=== PATIENT | female | born 1970 | race Caucasian/White ===

== ENCOUNTER 2023-01-28 17:47 | Outpatient (RCR) | payer MEDICARE, MEDICAID, SELFPAY | END 2023-02-26 23:59 | disposition home or self-care (01) | LOC: MM 17:47 | PROVIDERS: PCP Internal Medicine; Visit Provider Internal Medicine | DX: Z51.81 Encounter for therapeutic drug level monitoring (principal); Z79.01 Long term (current) use of anticoagulants; I48.0 Paroxysmal atrial fibrillation ==

== ENCOUNTER 2023-03-03 10:54 | Outpatient (RCR) | payer MEDICARE, MEDICAID, SELFPAY | END 2023-03-29 16:45 | disposition home or self-care (01) | LOC: MM 10:54 | PROVIDERS: PCP Internal Medicine; Visit Provider Internal Medicine | DX: Z51.81 Encounter for therapeutic drug level monitoring (principal); Z79.01 Long term (current) use of anticoagulants; I48.0 Paroxysmal atrial fibrillation ==

== ENCOUNTER 2023-03-18 03:20 | Emergency (ER) | payer MEDICARE, MEDICAID, SELFPAY ==
[2023-03-18 03:21] VITALS: BP 110/75; PULSE 80; RESP 18; TEMP 36.8; O2SAT 100; BMI 27.0
--- NOTE | 2023-03-18 03:40 | XR_ITS ---
The [address] [address] Patient Name: HORACIO LOMBARDI MRN: [id number] date: 1970 Sex: F Assigned Patient Location: ER Current Patient Location: ED.MAIN Accession/Order Number: [id number] Exam Date: 03/18/2023 03:40 Report Date: 03/18/2023 04:28 At the request of: HAROON ARCINIEGA Procedure: XR humerus RT EXAM: XR humerus RT HISTORY: fall, hx humeral fx COMPARISON: Right humerus radiograph dated 01/27/2023. TECHNIQUE: 2 views of the right humerus were obtained. FINDINGS: There is a healing proximal right humerus fracture. No additional fracture or dislocation is seen. The right humeral head is well-seated on the glenoid. The acromioclavicular and coracoclavicular distance are preserved. The imaged right lung is clear. XR/XR humerus RT IMPRESSION: 1. Healing proximal right humerus fracture with no additional fracture or dislocation seen. If pain persists, repeat radiographs are recommended in 7-10 days. Electronically authenticated by: Pascual DIAZ Date: 03/18/2023 04:28
--- NOTE | 2023-03-18 03:41 | ED_ITS ---
HPI - Extremity Injury (Upper) General Chief Complaint: Extremity Injury, Upper Stated Complaint: R UPPER PAIN Time Seen by Provider: 03/18/23 03:39 History of Present Illness HPI narrative: This 52 year old female who broke her right humerus 8 weeks ago when she fell And is seeing Dr. Obrien who has told her that he may have to put a plate in her humerus is brought to the emergency department by EMS after she fell out of a chair she was sleeping and this morning. She states she was sitting upright in the chair and in a deep sleep and fell forward. She fell out of the chair and struck her right humerus on a coffee table. She then fell to the floor after hitting the coffee table and struck her head. She denies any loss of consciousness. She denies any head injury or neck pain. Related Data Home Medications Medication Instructions Recorded Confirmed amiodarone 400 mg tablet mg 03/18/23 atorvastatin 80 mg tablet mg 03/18/23 baclofen 5 mg tablet mg 03/18/23 ymmybxmxyx-gzfegswwxrvsc-xxzugayt cap 03/18/23 50 mg-300 mg-40 mg capsule clonazepam 0.5 mg tablet mg 03/18/23 fluoxetine 20 mg capsule mg 03/18/23 isosorbide mononitrate 30 mg mg PO 03/18/23 tablet,extended release 24 hr levothyroxine 75 mcg tablet mcg 03/18/23 metoprolol succinate 100 mg mg PO 03/18/23 tablet,extended release 24 hr nitroglycerin 0.4 mg sublingual mg 03/18/23 tablet omeprazole 40 mg capsule,delayed mg 03/18/23 release potassium chloride 20 mEq meq PO 03/18/23 tablet,extended release(part/cryst) ropinirole 2 mg tablet mg 03/18/23 torsemide 20 mg tablet mg 03/18/23 trazodone 50 mg tablet mg 03/18/23 warfarin 5 mg tablet 5 mg PO DAILY 03/18/23 03/18/23 Allergies Allergy/AdvReac Type Severity Reaction Status Date / Time erythromycin base Allergy Unknown Verified 03/18/23 03:24 Review of Systems ROS Status of ROS 10 or more systems reviewed and unremarkable except as noted in history and below PFSH PFSH Social History Smoking status: Never smoker Exam Narrative Exam Narrative: Nurses note and vital signs reviewed and patient is not hypoxic. General: The patient appears well and in no apparent distress. Patient is resting comfortably on cart. Skin: Warm, dry, no pallor noted. There is no rash noted. Head: Normocephalic, several 'lumps' are noted on the patients scalp but no erythema, hematoma or laceration noted Neck: No midline bony vertebral tenderness or step off Eye: Normal conjunctiva, no drainage, EOMI. PERRL Ears, Nose, Mouth, and Throat: oral mucosa is moist. Cardiovascular: Regular Rate and Rhythm Respiratory: Patient is in no distress, no accessory muscle use, lungs are clear to auscultation, no wheezing, rales or rhonchi Back: non-tender, no CVA tenderness bilaterally to percussion. GI: Normal bowel sounds, no tenderness to palpation, no masses appreciated. No rebound, guarding, or rigidity noted. Musculoskeletal: There is tenderness without notable bony deformity to the right humerus and anterior chest wall. 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 strength is intact, Neurological: A&O x4, normal speech Psychiatric: Cooperative Constitutional Vital Signs, click to edit/add: Last Vital Signs Temp 98.2 F 03/18/23 03:21 Pulse 80 03/18/23 03:21 Resp 18 03/18/23 03:21 BP 110/75 03/18/23 03:21 Pulse Ox 100 03/18/23 03:21 O2 Del Method Room Air 03/18/23 03:21 Course Vital Signs Vital signs: Vital Signs Temperature 98.2 F 03/18/23 03:21 Pulse Rate 80 03/18/23 03:21 Respiratory Rate 18 03/18/23 03:21 Blood Pressure 110/75 03/18/23 03:21 Pulse Oximetry 100 03/18/23 03:21 Oxygen Delivery Method Room Air 03/18/23 03:21 Temperature 98.2 F 03/18/23 03:21 Pulse Rate 80 03/18/23 03:21 Respiratory Rate 18 03/18/23 03:21 Blood Pressure 110/75 03/18/23 03:21 Pulse Oximetry 100 03/18/23 03:21 Oxygen Delivery Method Room Air 03/18/23 03:21 MDM - Extremity Injury (Upper) MDM Narrative Medical decision making narrative: This 52-year-old female who has a humeral head fracture on January 27 after a mechanical fall is brought emergency department by EMS after she fell out of a chair she was sleeping and at home. She states she fell forward and struck her right arm on a coffee table and then fell to the floor striking her head on the floor. She does have a history of cardiac disease and is on Coumadin. Her GCS is 15. She complains of a global headache but also has migraines. She has several lumps on her scalp that do not appear to be related to her fall however I ordered a CT scan due to the fact that she is on Coumadin. X-ray of the right humerus shows a healing humeral head fracture with no dislocation or worsening or additional fracture. She was medicated emergency department with 4 mg of IM morphine and given 4 mg of oral Zofran to prevent nausea and vomiting from the morphine. CT scan of the brain was read by radiology and shows no acute findings. Discharge Plan Discharge Chief Complaint: Extremity Injury, Upper Clinical Impression: Fall from chair, Closed head injury, Fracture of head of humerus with routine healing Time of Disposition Decision: 05:17 Prescriptions / Home Meds: No Action atorvastatin 80 mg tablet torsemide 20 mg tablet trazodone 50 mg tablet isosorbide mononitrate 30 mg tablet extended release 24 hr PO clonazepam 0.5 mg tablet metoprolol succinate 100 mg tablet extended release 24 hr PO omeprazole 40 mg capsule,delayed release(DR/EC) levothyroxine 75 mcg tablet potassium chloride 20 mEq tablet,ER particles/crystals PO amiodarone 400 mg tablet ropinirole 2 mg tablet warfarin 5 mg tablet 5 mg PO DAILY Patient Comments: 1.5 M,W,F, 1 tab other days nitroglycerin 0.4 mg tablet, sublingual fluoxetine 20 mg capsule vsnyxvqpxz-jgtdcswslzecu-xwiu 50-300-40 mg capsule baclofen 5 mg tablet Instructions: Arm Fracture in Adults (DC), Head Injury (ED), Fall Prevention (ED) Stand Alone Forms: Portal Instructions Referrals: Shaikh Rojas MD [Primary Care Provider] - 1 week
[2023-03-18] MEDS: MORPHINE SULFATE 4 MG/ML VIAL IM (04:02)
[2023-03-18] MEDS: ONDANSETRON 4 MG RAPDIS TABLET SL (04:02)
--- NOTE | 2023-03-18 04:05 | CT_ITS ---
The [place] [id number] Patient Name: HORACIO LOMBARDI MRN: [id number] date: 1970 Sex: F Assigned Patient Location: ED.MAIN Current Patient Location: Accession/Order Number: [id number] Exam Date: 03/18/2023 04:26 Report Date: 03/18/2023 04:59 At the request of: HAROON MARKER Procedure: CT head/brain wo con INDICATION: 52 years old; Female. Fall. Closed head trauma. Headache. TECHNIQUE: CT Head (ax/cor/sag reformats). Ionizing radiation dose reduced via iterative reconstruction/FBP blend and body size kV/mA adjustment. Comparison: None FINDINGS: POSTOPERATIVE CHANGES: None. BRAIN PARENCHYMA: No focal lesions. No mass effect. No midline shift or herniation. No intraparenchymal or extra-axial hemorrhage. Subtle patchy low-density in the white matter without mass effect consistent with small vessel ischemic change. VENTRICLES/EXTRA-AXIAL SPACES: Normal for patient's age. SINUSES/MASTOIDS: The visualized sinuses are clear. Mastoid air cells are clear. MSK: No displaced or depressed calvarial fracture is noted. Extracranial soft tissue swelling in the vertex projecting to the left. OTHER: No hyperdense intraluminal thrombus. CT/CT head/brain wo con IMPRESSION: 1. No acute intracranial abnormality. No hemorrhage or mass effect. 2. Small vessel ischemic changes. 3. Extracranial soft tissue swelling. No subjacent displaced fracture is seen. Electronically authenticated by: KELSEY LOMAS Date: 03/18/2023 04:59
== END 2023-03-18 06:30 | disposition home or self-care (01) ==
PROVIDERS: Emergency Provider Emergency Medicine; PCP Internal Medicine
DX: S09.8XXA Other specified injuries of head, initial encounter (principal); W07.XXXA Fall from chair, initial encounter; S42.291D Other displaced fracture of upper end of right humerus, subsequent encounter for fracture with routine healing; S42.301D Unspecified fracture of shaft of humerus, right arm, subsequent encounter for fracture with routine healing; W19.XXXD Unspecified fall, subsequent encounter; Z79.899 Other long term (current) drug therapy; Z79.01 Long term (current) use of anticoagulants
CPT/HCPCS: 70450; 73060; 96372; 99284

== ENCOUNTER 2023-03-30 08:58 | Outpatient (RCR) | payer MEDICARE, MEDICAID, SELFPAY | END 2023-04-29 15:47 | disposition home or self-care (01) | LOC: MM 08:58 | PROVIDERS: Visit Provider Internal Medicine | DX: Z51.81 Encounter for therapeutic drug level monitoring (principal); Z79.01 Long term (current) use of anticoagulants; I48.0 Paroxysmal atrial fibrillation ==

== ENCOUNTER 2023-04-30 08:02 | Outpatient (RCR) | payer MEDICARE, MEDICAID, SELFPAY | END 2023-05-28 16:32 | disposition home or self-care (01) | LOC: MM 08:02 | PROVIDERS: PCP Internal Medicine; Visit Provider Internal Medicine | DX: Z51.81 Encounter for therapeutic drug level monitoring (principal); Z79.01 Long term (current) use of anticoagulants; I48.0 Paroxysmal atrial fibrillation ==

== ENCOUNTER 2023-05-02 09:15 | Emergency (ER) | payer MEDICARE, MEDICAID, SELFPAY ==
[2023-05-02 09:19] VITALS: BP 151/92; PULSE 80; RESP 18; TEMP 36.8; O2SAT 100; BMI 30.1
[2023-05-02 09:22] VITALS: PULSE 80
--- NOTE | 2023-05-02 09:42 | ECG_ITS ---
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
--- NOTE | 2023-05-02 09:49 | ED.GENADUL1 ---
HPI - General Adult General Chief complaint: Extremity Problem, Nontraumatic Stated complaint: L SHOULDER/ARM PAIN Time Seen by Provider: 05/02/23 09:18 Source: patient Mode of arrival: ambulance Limitations: no limitations History of Present Illness HPI narrative: patient woke with pain along the left neck and left posterior shoulder this morning. She is very stiff. No recent injury or illness. She did not take anything for the pain. She called 911 to bring her to the ED for evaluation. No fever or chills. No vomiting or diarrhea. Related Data Home Medications Medication Instructions Recorded Confirmed amiodarone 400 mg tablet 400 mg PO DAILY 03/18/23 05/02/23 atorvastatin 80 mg tablet 80 mg PO DAILY 03/18/23 05/02/23 baclofen 5 mg tablet 5 mg PO TID PRN muscle spasm 03/18/23 05/02/23 clonazepam 0.5 mg tablet 0.5 mg PO TID PRN anxiety 03/18/23 05/02/23 fluoxetine 20 mg capsule 20 mg PO DAILY 03/18/23 05/02/23 isosorbide mononitrate 30 mg 30 mg PO DAILY 03/18/23 05/02/23 tablet,extended release 24 hr levothyroxine 75 mcg tablet 75 mcg PO DAILY 03/18/23 05/02/23 nitroglycerin 0.4 mg sublingual 0.4 mg sublingual Q5M PRN chest 03/18/23 05/02/23 tablet pain omeprazole 40 mg capsule,delayed 40 mg PO DAILY 03/18/23 05/02/23 release potassium chloride 20 mEq 20 meq PO DAILY 03/18/23 05/02/23 tablet,extended release(part/cryst) ropinirole 2 mg tablet 2 mg PO TID 03/18/23 05/02/23 torsemide 20 mg tablet 40 mg PO DAILY 03/18/23 05/02/23 trazodone 50 mg tablet 50 mg PO QPM 03/18/23 05/02/23 warfarin 5 mg tablet 5 mg PO DAILY 03/18/23 05/02/23 Previous Rx's Medication Instructions Recorded methocarbamol 750 mg tablet 750 mg PO Q6H PRN pain #30 tabs 05/02/23 tramadol 50 mg tablet 50 mg PO Q6H PRN pain #14 tabs 05/02/23 Allergies Allergy/AdvReac Type Severity Reaction Status Date / Time erythromycin base Allergy Unknown Verified 03/18/23 03:24 [facility] Social History Smoking status: Current every day smoker Exam Narrative Exam Narrative: Nurses notes and vital signs reviewed and patient is not hypoxic. afebrile General: Well-appearing and in no apparent distress. Skin: Warm, dry, no pallor noted. No rash. Head: Normocephalic, atraumatic. Neck: Supple, no cervical lymphadenopathy. Soft tissue tenderness along the posterolateral left neck into the superior aspect of the left trapezius. Increased pain with side bending and rotation of the neck to the left. It decreases with side bending and rotation to the right. Eye: Pupils are equal, round and EOMI. No scleral icterus. Cardiovascular: Regular Rate and Rhythm without murmur, gallop or rub. Respiratory: No accessory muscle use or respiratory distress. Lungs are clear to auscultation, no wheezing, rales or rhonchi Back: No midline thoracic or lumbar vertebral tenderness. superior left trapezius soft tissue tenderness is noted. Musculoskeletal: normal ROM, no calf or popliteal tenderness, no lower extremity edema/swelling Neurological: A&O x4. No cranial nerve dysfunction observed. No truncal ataxia. Moves all extremities. Sensation intact. Psychiatric: Cooperative and interactive. Normal mood and affect. Constitutional Vital Signs, click to edit/add: Last Vital Signs Temp 98.3 F 05/02/23 09:19 Pulse 80 05/02/23 09:22 Resp 18 05/02/23 09:19 BP 151/92 H 05/02/23 09:19 Pulse Ox 100 05/02/23 09:19 O2 Del Method Room Air 05/02/23 09:19 Course Vital Signs Vital signs: Vital Signs Temperature 98.3 F 05/02/23 09:19 Pulse Rate 80 05/02/23 09:19 Respiratory Rate 18 05/02/23 09:19 Blood Pressure 151/92 H 05/02/23 09:19 Pulse Oximetry 100 05/02/23 09:19 Oxygen Delivery Method Room Air 05/02/23 09:19 Temperature 98.3 F 05/02/23 09:19 Pulse Rate 80 05/02/23 09:22 Respiratory Rate 18 05/02/23 09:19 Blood Pressure 151/92 H 05/02/23 09:19 Pulse Oximetry 100 05/02/23 09:19 Oxygen Delivery Method Room Air 05/02/23 09:19 Medical Decision Making MDM Narrative Medical decision making narrative: the patient was given IM Solu-Medrol and IM Toradol in the emergency department along with oral Percocet tablet. She has acute torticollis and will be discharged home with prescriptions for Ultram and Robaxin. She takes Coumadin daily and therefore cannot get long-term NSAID treatment. Discharge Plan Discharge Chief Complaint: Extremity Problem, Nontraumatic Clinical Impression: Acute torticollis Patient Disposition: Home, Self-Care Time of Disposition Decision: 09:53 Prescriptions / Home Meds: New methocarbamol 750 mg tablet 750 mg PO Q6H PRN (Reason: pain) Qty: 30 0RF tramadol 50 mg tablet 50 mg PO Q6H PRN (Reason: pain) Qty: 14 0RF No Action atorvastatin 80 mg tablet 80 mg PO DAILY torsemide 20 mg tablet 40 mg PO DAILY trazodone 50 mg tablet 50 mg PO QPM isosorbide mononitrate 30 mg tablet extended release 24 hr 30 mg PO DAILY clonazepam 0.5 mg tablet 0.5 mg PO TID PRN (Reason: anxiety) omeprazole 40 mg capsule,delayed release(DR/EC) 40 mg PO DAILY levothyroxine 75 mcg tablet 75 mcg PO DAILY potassium chloride 20 mEq tablet,ER particles/crystals 20 meq PO DAILY amiodarone 400 mg tablet 400 mg PO DAILY ropinirole 2 mg tablet 2 mg PO TID warfarin 5 mg tablet 5 mg PO DAILY Patient Comments: 1.5 M,W,F, 1 tab other days nitroglycerin 0.4 mg tablet, sublingual 0.4 mg sublingual Q5M PRN (Reason: chest pain) fluoxetine 20 mg capsule 20 mg PO DAILY baclofen 5 mg tablet 5 mg PO TID PRN (Reason: muscle spasm) Instructions: Spasmodic Torticollis (ED) Stand Alone Forms: Portal Instructions Referrals: Shaikh Rojas MD [Primary Care Provider] - 1 week
[2023-05-02] MEDS: KETOROLAC TROMETHAMINE 60 MG/2 ML VIAL IM (09:56)
[2023-05-02] MEDS: METHYLPREDNISOLONE SOD SUCC PF 125 MG/2 ML VIAL IM (09:57)
== END 2023-05-02 10:30 | disposition home or self-care (01) ==
PROVIDERS: Emergency Provider Emergency Medicine; PCP Internal Medicine
DX: M43.6 Torticollis (principal); Z79.899 Other long term (current) drug therapy; Z79.01 Long term (current) use of anticoagulants; F17.210 Nicotine dependence, cigarettes, uncomplicated
CPT/HCPCS: 93005; 96372; 99284; J2930

== ENCOUNTER 2023-05-06 22:16 | Inpatient (IN) | payer MEDICARE, MEDICAID, SELFPAY ==
[2023-05-06] VITALS (12 sets, daily range): BP systolic 124–131; BP diastolic 50–64; PULSE 80–91; RESP 18–35; TEMP 37.3; O2SAT 89–93; BMI 29.3
--- NOTE | 2023-05-06 22:26 | ECG_ITS ---
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
--- NOTE | 2023-05-06 22:26 | XR_ITS ---
The [address] [address] Patient Name: HORACIO LOMBARDI MRN: [id number] date: 1970 Sex: F Assigned Patient Location: ED.MAIN Current Patient Location: ER Accession/Order Number: [id number] Exam Date: 05/06/2023 22:45 Report Date: 05/06/2023 23:16 At the request of: OMER JOSEPH Procedure: XR chest 1V EXAM: XR chest 1V HISTORY: shortness of breath COMPARISON: None. TECHNIQUE: AP FINDINGS: Left anterior chest wall pacemaker visualized with the distal tips noted projecting over the region of the right atrium and the right ventricle. Mitral valve replacement visualized. There is mild to moderate cardiomegaly. There are prominent interstitial markings visualized bilaterally, right greater than left. Questionable minimal right-sided pleural effusion. No evidence for focal consolidation. No evidence for pneumothorax. The diaphragmatic and osseous structures are intact without evidence for an acute osseous abnormality. XR/XR chest 1V IMPRESSION: Pcke-pv-[id number] cardiomegaly with evidence of CHF/fluid overload with minimal right-sided pleural effusion. Electronically authenticated by: GILA RICHARDSON Date: 05/06/2023 23:16
--- NOTE | 2023-05-06 22:28 | ED.GENADUL1 ---
HPI - General Adult General Chief complaint: Shortness of Breath/Dyspnea Stated complaint: SOB Time Seen by Provider: 05/06/23 22:25 Source: patient Mode of arrival: ambulance Limitations: no limitations History of Present Illness HPI narrative: Patient with CAD, CHF and implanted PM/Defib was brought in by EMS for evaluation after she developed shortness of breath 3 days ago that worsened tonight. No chest pain or tightness. She admits to headache and some generalized achiness. No known exposure to Covid or other illness. She told me that she did not get her Metoprolol with her delivery of other meds 3 weeks ago and has been off of it until today, when she was able to get metoprolol and restart it. She sees Dr Hoskins (Cardiology) in [place]. Related Data Home Medications Medication Instructions Recorded Confirmed amiodarone 400 mg tablet 400 mg PO DAILY 03/18/23 05/02/23 atorvastatin 80 mg tablet 80 mg PO DAILY 03/18/23 05/02/23 baclofen 5 mg tablet 5 mg PO TID PRN muscle spasm 03/18/23 05/02/23 clonazepam 0.5 mg tablet 0.5 mg PO TID PRN anxiety 03/18/23 05/02/23 fluoxetine 20 mg capsule 20 mg PO DAILY 03/18/23 05/02/23 isosorbide mononitrate 30 mg 30 mg PO DAILY 03/18/23 05/02/23 tablet,extended release 24 hr levothyroxine 75 mcg tablet 75 mcg PO DAILY 03/18/23 05/02/23 nitroglycerin 0.4 mg sublingual 0.4 mg sublingual Q5M PRN chest 03/18/23 05/02/23 tablet pain omeprazole 40 mg capsule,delayed 40 mg PO DAILY 03/18/23 05/02/23 release potassium chloride 20 mEq 20 meq PO DAILY 03/18/23 05/02/23 tablet,extended release(part/cryst) ropinirole 2 mg tablet 2 mg PO TID 03/18/23 05/02/23 torsemide 20 mg tablet 40 mg PO DAILY 03/18/23 05/02/23 trazodone 50 mg tablet 50 mg PO QPM 03/18/23 05/02/23 warfarin 5 mg tablet 5 mg PO DAILY 03/18/23 05/02/23 Previous Rx's Medication Instructions Recorded methocarbamol 750 mg tablet 750 mg PO Q6H PRN pain #30 tabs 05/02/23 tramadol 50 mg tablet 50 mg PO Q6H PRN pain #14 tabs 05/02/23 Allergies Allergy/AdvReac Type Severity Reaction Status Date / Time erythromycin base Allergy Unknown Verified 05/06/23 22:23 [facility] Social History Smoking status: Former smoker Exam Narrative Exam Narrative: Nurses notes and vital signs reviewed and patient IS hypoxic -only 89% on RA. afebrile General: Well-appearing and in no apparent distress. Skin: Warm, dry, no pallor noted. Head: Normocephalic, atraumatic. Eye: Pupils are equal, round and EOMI. No scleral icterus. Ears, Nose, Mouth, and Throat: Oral mucosa is moist, no oral lesions noted Cardiovascular: Regular Rate and Rhythm without murmur, gallop or rub. Respiratory: No accessory muscle use or respiratory distress. Lungs are clear to auscultation, no wheezing, rales or rhonchi Musculoskeletal: normal ROM, no calf or popliteal tenderness, no lower extremity edema/swelling GI: Abdomen is soft, non-distended. Normal bowel sounds. No tenderness to palpation. No rebound, guarding, or rigidity noted. Neurological: A&O x4. No cranial nerve dysfunction observed. No truncal ataxia. Moves all extremities. Sensation intact. Psychiatric: Cooperative and interactive. Normal mood and affect. Constitutional Vital Signs, click to edit/add: Last Vital Signs Temp 99.1 F 05/06/23 22:18 Pulse 80 05/07/23 01:01 Resp 25 H 05/07/23 01:01 BP 119/55 05/07/23 01:01 Pulse Ox 93 L 05/07/23 01:01 O2 Del Method Room Air 05/06/23 22:18 Course Vital Signs Vital signs: Vital Signs Temperature 99.1 F 05/06/23 22:18 Pulse Rate 80 05/06/23 22:18 Respiratory Rate 18 05/06/23 22:18 Blood Pressure 126/63 05/06/23 22:18 Pulse Oximetry 89 L 05/06/23 22:18 Oxygen Delivery Method Room Air 05/06/23 22:18 Temperature 99.1 F 05/06/23 22:18 Pulse Rate 80 05/07/23 01:01 Respiratory Rate 25 H 05/07/23 01:01 Blood Pressure 119/55 05/07/23 01:01 Pulse Oximetry 93 L 05/07/23 01:01 Oxygen Delivery Method Room Air 05/06/23 22:18 Medical Decision Making MDM Narrative Medical decision making narrative: Patient was placed on cathode washer and EKG obtained. Blood drawn and sent for evaluation. chest x-ray obtained. Patient's K+ was low at 3.0 so she was given oral Potassium 40meq. Normal Troponin but elevated BNP > 4k - CXR revealed CHF/fluid overload with right sided effusion, consistent with elevated BNP. WBC elevated at 20k - lactate and blood cultures obtained. Elevated DDimer so CTA chest obtained. Lactate elevated - patient ordered to receive IV Rocephin. IV levaquin had conflicts with her amiodarone (QT prolongation) and so was avoided. Patient told us that she was started on thyroid med a month ago and has not had levels checked - elevated T4 with normal T3. CTA chest shows diffuse ground glass appearance - could be pulm edema,diffuse infiltrate/pneumonia or combo. Covid is negative. Patient will be need to be admitted for hypoxia, CHF exacerbation and multifocal pneumonia with sepsis. Call placed to the deputy probation officer telehospitalist to discuss admission. Dr Nascimento agreed to admit the patient on behalf of Dr He after we discussed the case. Patient informed of results, diagnoses and was agreeable to admission - medsurg, telemetry, inpatient, Dr He's service. Lab Data Lab results reviewed: Yes I reviewed the patient's lab results Labs: Lab Results 05/06/23 05/06/23 05/06/23 Range/Units 22:38 22:40 22:50 WBC 20.9 H (4.0-11.0) 10^3/uL RBC 4.38 (4.20-5.40) 10^6/uL Hgb 9.2 L (12.0-16.0) g/dL Hct 31.3 L (36.0-48.0) % MCV 71.5 L (81.0-99.0) fL MCH 21.0 L (26.7-34.0) pg MCHC 29.4 L (29.9-35.2) g/dL RDW 19.1 H (11.0-15.0) % Plt Count 252 (150-450) 10^3/uL MPV 11.5 (9.5-13.5) fL Neut % (Auto) 82.5 H (43.0-75.0) % Lymph % (Auto) 5.4 L (20.5-60.0) % Sibley % (Auto) 10.7 (1.7-12.0) % Eos % (Auto) 0.1 L (0.9-7.0) % Baso % (Auto) 0.5 (0.2-2.0) % Neut # (Auto) 17.3 H (1.4-6.5) 10^3/uL Lymph # (Auto) 1.1 L (1.2-3.8) 10^3/uL Sibley # (Auto) 2.2 H (0.3-0.8) 10^3/uL Eos # (Auto) 0.0 (0.0-0.7) 10^3/uL Baso # (Auto) 0.1 (0.0-0.1) 10^3/uL Abs Immat Gran (auto) 0.17 H (0.00-0.03) 10^3/uL Imm/Tot Granulo (auto) 0.8 H (0.0-0.5) % D-Dimer 1.32 H* (<=0.59) mg/L FEU Sodium 138 (136-145) mmol/L Potassium 3.0 L (3.5-5.1) mmol/L Chloride 101 (98-107) mmol/L Carbon Dioxide 26.5 (21.0-32.0) mmol/L Anion Gap 13.5 BUN 14.0 (7.0-18.0) mg/dL Creatinine 1.14 H (0.55-1.02) mg/dL Est GFR ( Amer) >60 (>=60) Est GFR (Non-Af Amer) 50 L (>=60) BUN/Creatinine Ratio 12.3 Glucose 127 H (74-106) mg/dL Lactate 2.5 H* (0.4-2.0) mmol/L Calcium 8.4 L (8.5-10.1) mg/dL Troponin I High Sens 25.5 (4.0-51.3) pg/mL NT-Pro-B Natriuret Pep 4943.0 H* (<=900.0) pg/mL Free T4 2.05 H (0.76-1.46) ng/dL Free T3 1.21 L (2.18-3.98) pg/mL SARS-CoV-2 (PCR) Negative (NEGATIVE) Imaging Data Chest x-ray: Radiologist's impression: Patient Name: HORACIO LOMBARDI MRN: [facility]:[id number] date: 1970 Sex: F Assigned Patient Location: ED.MAIN Current Patient Location: ER Accession/Order Number: [id number] Exam Date: 05/06/2023 22:45 Report Date: 05/06/2023 23:16 At the request of: OMER JOSEPH Procedure: XR chest 1V EXAM: XR chest 1V HISTORY: shortness of breath COMPARISON: None. TECHNIQUE: AP FINDINGS: Left anterior chest wall pacemaker visualized with the distal tips noted projecting over the region of the right atrium and the right ventricle. Mitral valve replacement visualized. There is mild to moderate cardiomegaly. There are prominent interstitial markings visualized bilaterally, right greater than left. Questionable minimal right-sided pleural effusion. No evidence for focal consolidation. No evidence for pneumothorax. The diaphragmatic and osseous structures are intact without evidence for an acute osseous abnormality. IMPRESSION: Ijup-to-[id number] cardiomegaly with evidence of CHF/fluid overload with minimal right-sided pleural effusion. Electronically authenticated by: GILA RICHARDSON Date: 05/06/2023 23:16 cta chest: Radiologist's impression: Patient Name: HORACIO LOMBARDI MRN: [facility]:[id number] date: 1970 Sex: F Assigned Patient Location: ER Current Patient Location: ER Accession/Order Number: [id number] Exam Date: 05/06/2023 23:59 Report Date: 05/07/2023 01:06 At the request of: OMER JOSEPH Procedure: CT angio chest EXAMINATION:CT angio chest INDICATION:shortness of breath COMPARISON:None TECHNIQUE:Thin section transaxial slices were acquired through the chest with intravenous contrast per PE protocol. Coronal and sagittal reconstructed images were reviewed. FINDINGS: PULMONARY ARTERIES: There is excellent opacification of the pulmonary vasculature. No suspicious pulmonary arterial filling defects are identified to suggest pulmonary embolus. LUNGS: There are chronic emphysematous changes in the lungs. The major predominantly within the upper lobes. There is severe diffuse groundglass airspace disease identified throughout all lobes of each lung most severe in the entire right lung and left lower lobe. PLEURAL CAVITY: There is a small right pleural effusion and trace left pleural effusion. MEDIASTINUM: Trachea and central airways are patent. HEART: There is cardiac enlargement. A mitral valve is in place.T here are coronary artery calcifications.There is no evidence of right heart strain. VASCULAR:There is no aneurysm or dissection of the thoracic aorta. LYMPH NODES:There is extensive mediastinal lymphadenopathy especially in the AP window and subcarinal space. The largest lymph node is in the subcarinal space measuring 2.3 cm in transverse dimension. These may be reactive given findings elsewhere within the lungs. CHEST WALL/AXILLA: The patient is status post median sternotomy. A left-sided pacemaker is in place. BONES: There is a healing fracture of the proximal right humerus. There are age indeterminate compression fractures of the T12 vertebral body and T7 vertebral body. VISUALIZED UPPER ABDOMEN: The patient is status post cholecystectomy. IMPRESSION: 1. No evidence of pulmonary embolus. 2. Extensive diffuse groundglass airspace disease in all lobes of each lung. Differential considerations include multifocal infection, alveolar edema, pulmonary hemorrhage or combination of these. 3. Small right pleural effusion and trace left pleural effusion. Electronically authenticated by: MARLON KHANNA Date: 05/07/2023 01:06 ECG Data Interpretation: EKG interpretation: Emergency Department physician interpretation. Pacer spikes present. Normal sinus rhythm at 79bpm. 1st degree AVB. LAD. no ST segment elevation or depression. Discharge Plan Discharge Chief Complaint: Shortness of Breath/Dyspnea Clinical Impression: Sepsis, CHF (congestive heart failure), Multifocal pneumonia Patient Disposition: Admitted As Inpatient Time of Disposition Decision: 01:29 Additional Instructions: medsurg, telemetry, Dr He
[2023-05-06 22:47] LABS: Basophils Absolute Auto 0.1 10^3/uL (0.0-0.1); Basophils Percent Auto 0.5 % (0.2-2.0); Eosinophils Percent Auto 0.1 % (0.9-7.0); Hematocrit 31.3 % (36.0-48.0); Hemoglobin 9.2 g/dL (12.0-16.0); Immature Granulocytes Abs Auto 0.17 10^3/uL (0.00-0.03); Immature Granulocytes Pct Auto 0.8 % (0.0-0.5); Lymphocytes Absolute Auto 1.1 10^3/uL (1.2-3.8); Lymphocytes Percent Auto 5.4 % (20.5-60.0); Mean Corpuscular HGB Conc 29.4 g/dL (29.9-35.2); Mean Corpuscular Volume 71.5 fL (81.0-99.0); Mean Platelet Volume 11.5 fL (9.5-13.5); Monocytes Absolute Auto 2.2 10^3/uL (0.3-0.8); Monocytes Percent Auto 10.7 % (1.7-12.0); Neutrophils Absolute Auto 17.3 10^3/uL (1.4-6.5); Neutrophils Percent Auto 82.5 % (43.0-75.0); Platelet Count 252 10^3/uL (150-450); Red Blood Count 4.38 10^6/uL (4.20-5.40); Red Cell Distribution Width 19.1 % (11.0-15.0); White Blood Count 20.9 10^3/uL (4.0-11.0)
[2023-05-06 23:04] LABS: D Dimer 1.32 mg/L FEU (<=0.59)
[2023-05-06 23:08] LABS: Free T4 2.05 ng/dL (0.76-1.46)
--- NOTE | 2023-05-06 23:09 | CT_ITS ---
The [address] [address] Patient Name: HORACIO LOMBARDI MRN: [id number] date: 1970 Sex: F Assigned Patient Location: ER Current Patient Location: Accession/Order Number: [id number] Exam Date: 05/06/2023 23:59 Report Date: 05/07/2023 01:06 At the request of: OMER JOSEPH Procedure: CT angio chest EXAMINATION:CT angio chest INDICATION:shortness of breath COMPARISON:None TECHNIQUE:Thin section transaxial slices were acquired through the chest with intravenous contrast per PE protocol. Coronal and sagittal reconstructed images were reviewed. FINDINGS: PULMONARY ARTERIES: There is excellent opacification of the pulmonary vasculature. No suspicious pulmonary arterial filling defects are identified to suggest pulmonary embolus. LUNGS: There are chronic emphysematous changes in the lungs. The major predominantly within the upper lobes. There is severe diffuse groundglass airspace disease identified throughout all lobes of each lung most severe in the entire right lung and left lower lobe. PLEURAL CAVITY: There is a small right pleural effusion and trace left pleural effusion. MEDIASTINUM: Trachea and central airways are patent. HEART: There is cardiac enlargement. A mitral valve is in place.T here are coronary artery calcifications.There is no evidence of right heart strain. VASCULAR:There is no aneurysm or dissection of the thoracic aorta. LYMPH NODES:There is extensive mediastinal lymphadenopathy especially in the AP window and subcarinal space. The largest lymph node is in the subcarinal space measuring 2.3 cm in transverse dimension. These may be reactive given findings elsewhere within the lungs. CHEST WALL/AXILLA: The patient is status post median sternotomy. A left-sided pacemaker is in place. BONES: There is a healing fracture of the proximal right humerus. There are age indeterminate compression fractures of the T12 vertebral body and T7 vertebral body. VISUALIZED UPPER ABDOMEN: The patient is status post cholecystectomy. CT/CT angio chest IMPRESSION: 1. No evidence of pulmonary embolus. 2. Extensive diffuse groundglass airspace disease in all lobes of each lung. Differential considerations include multifocal infection, alveolar edema, pulmonary hemorrhage or combination of these. 3. Small right pleural effusion and trace left pleural effusion. Electronically authenticated by: MARLON KHANNA Date: 05/07/2023 01:06
[2023-05-06 23:12] LABS: SARS-CoV-2 Ag NEGATIVE (NEGATIVE)
[2023-05-06 23:13] LABS: Anion Gap 13.5; BUN Creatinine Ratio 12.3; Calcium 8.4 mg/dL (8.5-10.1); Carbon Dioxide 26.5 mmol/L (21.0-32.0); Chloride 101 mmol/L (98-107); Estimated GFR (African America >60 (>=60); Estimated GFR (Non-African Ame 50 (>=60); Glucose 127 mg/dL (74-106); Sodium 138 mmol/L (136-145); Troponin I High Sensitivity 25.5 pg/mL (4.0-51.3)
[2023-05-06 23:15] LABS: Free T3 1.21 pg/mL (2.18-3.98)
[2023-05-06] MEDS: POTASSIUM CHLORIDE 10 MEQ ER TABLET 40 MEQ PO (23:42)
[2023-05-07] VITALS (33 sets, daily range): BP systolic 96–139; BP diastolic 55–69; PULSE 80–93; RESP 18–36; TEMP 36.7–38.5; O2SAT 80–97; BMI 28.6
[2023-05-07 00:51] LABS: Lactate/Lactic Acid 2.5 mmol/L (0.4-2.0)
--- NOTE | 2023-05-07 01:43 | P.PN_ITS ---
Progress Note: Subjective Subjective Interval history: presents to ED after 5 days of LE edema but having been without metoprolol for three weeks, the medicine was mailed/arrived on day of presentation for which she restarted her medication then later in the day began having dyspnea/increased work of breathing. no chest pain. IN ED found to have hypoxia to 88% on RA with no hx of o2 needs. has asthma and is a former smoker (quite August of 2021) and used inhaler at onset of dyspnea and this helped dyspnea. patient has been compliant with lasix PO during this time. ED found patient in CHF but performed CT suggestive of pneumonia (Covid -) with WBC elevation. PCP: Carmen Lane is in [place] Dr. [place] HX: DC at 28 requiring MVR that was updated in 2021. Pacemaker implantation SXH: ex smoker Exam Constitutional Vital Signs, click to edit/add: Last Vital Signs Temp 99.1 F 05/06/23 22:18 Pulse 80 05/07/23 01:30 Resp 30 H 05/07/23 01:30 BP 109/65 05/07/23 01:30 Pulse Ox 94 L 05/07/23 01:30 O2 Del Method Room Air 05/06/23 22:18 Common normals: no apparent distress HENMT Common normals: normocephalic Chest Common normals: inspection of chest normal Chest: pacemaker Respiratory Common normals: normal respiratory effort and no retractions Effort & inspection: able to speak in complete sentences Auscultation: rhonchi Cardio Common normals: regular rate GI Inspection: normal to inspection Extremity Common normals: normal to inspection (no LE edema) Neuro Common normals: oriented x3 Progress Note: Objective Labs Labs: Short CBC 05/06/23 Range/Units 22:38 WBC 20.9 H (4.0-11.0) 10^3/uL Hgb 9.2 L (12.0-16.0) g/dL Hct 31.3 L (36.0-48.0) % Plt Count 252 (150-450) 10^3/uL BMP 05/06/23 22:38 Sodium 138 Potassium 3.0 L Chloride 101 Carbon Dioxide 26.5 BUN 14.0 Creatinine 1.14 H Glucose 127 H Calcium 8.4 L ECG Attestation: ?I have reviewed the pertinent ECG results. Progress Note: A&P Assessment and Plan (1) CHF (congestive heart failure): (2) Multifocal pneumonia: Plan 1. Shortness of breath with Hypoxia mulifactoral 2. CHF Exacerbation 3. Pneumonia4. Anxiety: ok to continue home anxiolytic Plan to continue antibiotics and follow C and S from cultures. Repeat am labs noting leukocytosis. Fever control as necessary (febrile and given tylenol when leaving Ed and during camera time repeat temp is afebrile) Noninvasive respiratory therapy for hypoxia. Volume diuresis with electrolyte repletion. Cardiac Diet, Gi prophylaxis and DVT prophylaxis. PAtient may mobilize ad dayna. Telemedicine Attestation Telemedicine Attestation I conducted this encounter from [Home office in [facility]] via secure live, [id number] video conference with the patient, located at [facility] with [RN bedside ELIZABETH. Prior to the interview, the risks and benefits of telemedicine were discussed with the patient and verbal consent was obtained.
--- NOTE | 2023-05-07 01:45 | XR_ITS ---
The [address] [address] Patient Name: HORACIO LOMBARDI MRN: [id number] date: 1970 Sex: F Assigned Patient Location: MS Current Patient Location: MS Accession/Order Number: [id number] Exam Date: 05/07/2023 05:05 Report Date: 05/07/2023 07:44 At the request of: JOSEE ARTHUR Procedure: XR chest 1V EXAM: XR chest 1V HISTORY: chf/hypoxia COMPARISON: Chest x-ray 05/06/2023. CT chest 05/07/2023 TECHNIQUE: AP chest x-ray. FINDINGS: Cardiac size remains enlarged. Left pectoral AICD is redemonstrated. Valvular replacement is noted with prior median sternotomy. Trachea is midline. No mediastinal widening. Interstitial opacities with patchy alveolar densities, grossly unchanged. No pneumothorax. No definite pleural effusion. Osseous structures appear unchanged. XR/XR chest 1V IMPRESSION: 1. Stable cardiomegaly. 2. Bilateral pulmonary opacities could be related to moderate edema or pneumonia, grossly unchanged. Electronically authenticated by: KAREN FAGAN Date: 05/07/2023 07:44
[2023-05-07] MEDS: CEFTRIAXONE 1,000 MG in 0.9 % SODIUM CHLORIDE 50 ML 100 MG IV ×2 (02:03→21:05)
[2023-05-07] MEDS: ACETAMINOPHEN 500 MG TABLET 1000 MG PO (02:03)
[2023-05-07] MEDS: FUROSEMIDE 40 MG/4 ML VIAL IVP ×2 (02:03→13:20)
[2023-05-07 05:14] LABS: Basophils Absolute Auto 0.1 10^3/uL (0.0-0.1); Basophils Percent Auto 0.3 % (0.2-2.0); Eosinophils Percent Auto 0.1 % (0.9-7.0); Hemoglobin 8.5 g/dL (12.0-16.0); Immature Granulocytes Abs Auto 0.11 10^3/uL (0.00-0.03); Immature Granulocytes Pct Auto 0.6 % (0.0-0.5); Lymphocytes Absolute Auto 1.1 10^3/uL (1.2-3.8); Lymphocytes Percent Auto 6.1 % (20.5-60.0); Mean Corpuscular HGB Conc 29.3 g/dL (29.9-35.2); Mean Corpuscular Hemoglobin 20.7 pg (26.7-34.0); Mean Corpuscular Volume 70.6 fL (81.0-99.0); Mean Platelet Volume 11.3 fL (9.5-13.5); Monocytes Absolute Auto 1.8 10^3/uL (0.3-0.8); Monocytes Percent Auto 10.1 % (1.7-12.0); Neutrophils Absolute Auto 14.6 10^3/uL (1.4-6.5); Neutrophils Percent Auto 82.8 % (43.0-75.0); Platelet Count 225 10^3/uL (150-450); Red Blood Count 4.11 10^6/uL (4.20-5.40); Red Cell Distribution Width 19.2 % (11.0-15.0); White Blood Count 17.6 10^3/uL (4.0-11.0)
[2023-05-07 05:23] LABS: INR 1.05; Prothrombin Time 11.1 sec (9.0-11.6)
[2023-05-07 05:45] LABS: Alanine Aminotransferase 21 U/L (14-59); Albumin Globulin Ratio 0.6; Albumin Level 2.4 g/dL (3.4-5.0); Alkaline Phosphatase 211 U/L (46-116); Anion Gap 11.8; Aspartate Amino Transferase 35 U/L (15-37); BUN Creatinine Ratio 12.7; Bilirubin Total 1.7 mg/dL (0.2-1.0); Calcium 8.3 mg/dL (8.5-10.1); Carbon Dioxide 27.5 mmol/L (21.0-32.0); Chloride 105 mmol/L (98-107); Estimated GFR (African America >60 (>=60); Estimated GFR (Non-African Ame 52 (>=60); Glucose 107 mg/dL (74-106); Potassium 3.3 mmol/L (3.5-5.1); Sodium 141 mmol/L (136-145); Total Protein 6.4 g/dL (6.4-8.2)
[2023-05-07] MEDS: OMEPRAZOLE 40 MG CAPSULE.DR PO ×2 (05:48→08:23)
[2023-05-07] MEDS: ROPINIROLE HCL 1 MG TABLET 2 MG PO ×3 (05:48→21:05)
[2023-05-07] MEDS: LEVOTHYROXINE SODIUM 75 MCG TABLET PO (05:48)
[2023-05-07] MEDS: POTASSIUM CHLORIDE 10 MEQ ER TABLET 20 MEQ PO ×2 (05:50→08:22)
--- NOTE | 2023-05-07 06:45 | CA_ITS ---
Patient: HORACIO LOMBARDI Exam Date: 05/07/2023 : 1970 Gender:F Ordering : DR Curt He . Admission #: [id number] Family : SHAIKH Dmitry FARRELL . Order #: [id number] CLICK HERE TO VIEW EXAM ECHOCARDIOGRAM REPORT PROCEDURE: CA ECHO DOPPLER COMPLETE INDICATIONS: Congestive heart failure, mitral valve replacement, KS, hypertension COMPARISON: None. DESCRIPTION: COMPLETE ECHOCARDIOGRAM Real-time transthoracic echocardiography with 2D, M-mode, spectral and color flow Doppler performed. QUALITY: Technical quality was good. LEFT VENTRICLE: Mild dilatation. Mild eccentric left ventricular hypertrophy. The septum is abnormal in motion as seen in post open heart patients. Systolic function is severely reduced. LV EF: Severely reduced left ventricular ejection fraction, (20%). DIASTOLIC: ATRIAL SEPTUM: Visually appears intact. LEFT ATRIUM: Severe dilatation. RIGHT ATRIUM: Severe dilatation. RIGHT VENTRICLE: Mild dilatation. Systolic function appears normal. Pacer wire present. TRICUSPID VALVE: Normal mobility and thickness. No stenosis with moderate to severe regurgitation. Doppler studies reveal severely (>60) elevated right sided pressures. RVSP 85 mmHg MITRAL VALVE: Bio-Prosthetic valve with normal flow. Mean diastolic gradient is 7 mmHg. Trivial mitral regurgitation. AORTIC VALVE: Normal trileaflet appearance. No visible sclerosis. Normal leaflet mobility. No evidence of aortic valve stenosis. No aortic regurgitation. AORTIC ROOT: Normal diameter and appearance. PULMONIC VALVE: Normal thickness and mobility. No stenosis. Trivial regurgitation. PERICARDIUM: No evidence of pericardial effusion. IVC: IVC is dilated (2.5 cm) with no collapse. PLEURA: CONCLUSION: 1. The left ventricle exhibits mild eccentric hypertrophy with severely reduced systolic function. LVEF is 20%. 2. Mildly dilated right ventricle with normal systolic function. 3. Moderate to severe tricuspid regurgitation. 4. Bioprosthetic valve appears to be well-seated in the mitral position with normal function. 5. Severely elevated right-sided pressures. RVSP is 85 mmHg. Adult Echocardiography Procedure Report Left Ventricle LVEDD (3.7 - 5.6 cm): 5.87 cm LVESD (2.2 - 4.0 cm): 5.23 cm LVIVS thickness (0.6 - 1.2 cm): 1.06 cm LVPW thickness (0.5 - 1.0 cm): 1.15 cm LVOT Max Gradient: 4.26 mm[Hg], 3.21 mm[Hg] LVOT Area (cm2): 0.96 m/s Peak Velocity (LVOT): 1.03 m/s, 0.90 m/s Mean Velocity (LVOT): 0.68 m/s Left Atrium LA Volume Index (2D A2C): 80.75 ml/m2 Left Atrium Systolic Dimension: 6.95 cm Mitral Valve Right Ventricle Aorta AO Root Diam: 3.07 cm Aortic Valve Peak Velocity(Antegrade Flow): 1.67 m/s Peak Gradient(Antegrade Flow): 11.21 mm[Hg] Mean Velocity(Antegrade Flow): 1.13 m/s Mean Gradient(Antegrade Flow): 5.91 mm[Hg] Velocity Time Integral: 24.44 cm Tricuspid Valve Peak Velocity (Regurgitant Flow): 4.17 m/s, 3.46 m/s, 3.80 m/s, 3.64 m/s, 3.64 m/s Pulmonic Valve Peak Velocity: 1.05 m/s Peak Gradient: 3.84 mm[Hg], 5.00 mm[Hg] Right Atrium Right Atrium Systolic Pressure: 72.24 ml, 72.24 ml Dictated by: Julio Badillo M.D. on 05/07/2023 at 17:48 Approved by: Julio Badillo M.D. on 05/07/2023 at 17:54
--- NOTE | 2023-05-07 07:55 | CM.NOTE ---
Rounds made with Dr. He, no discharge today.
[2023-05-07] MEDS: ENOXAPARIN SODIUM 40 MG/0.4 ML SYRINGE SUBQ (08:22)
[2023-05-07] MEDS: TORSEMIDE 20 MG TABLET 40 MG PO (08:22)
[2023-05-07] MEDS: ATORVASTATIN CALCIUM 40 MG TABLET 80 MG PO (08:23)
[2023-05-07] MEDS: ISOSORBIDE MONONITRATE 30 MG TAB.ER.24H PO (08:23)
[2023-05-07] MEDS: CLONAZEPAM 0.5 MG TABLET PO ×3 (08:23→22:52)
[2023-05-07] MEDS: AMIODARONE HCL 200 MG TABLET 400 MG PO (08:23)
[2023-05-07] MEDS: METOPROLOL SUCCINATE 100 MG TAB.ER.24H PO (08:23)
[2023-05-07] MEDS: FLUOXETINE HCL 20 MG CAPSULE PO (08:24)
--- NOTE | 2023-05-07 09:40 | P.HP_ITS ---
H&P: HPI History of Present Illness Chief complaint: SOB Narrative: 52 y/o female with history of CHF and low EF to ER with SOB. C/o increased edema for several days. Prescribed torsemide but wasn't taking. Noted increased edema over past week and resumed lasix. Developed worsening SOB over past few days. C/o fatigue and body aches. Temp 100.7 at home. Mild nonproductive cough. Continued SOB and to ER. Noted hypoxia of 88% on room air and placed on supplemental oxygen. WBC and lactate elevated. CT chest showed fluid overload and infiltrate. Admitted for treatment. Review of Systems ROS Constitutional Reports: fever, chills and fatigue Cardiovascular Reports: edema; Denies: chest pain or palpitations Respiratory Reports: shortness of breath and cough; Denies: wheezing Gastrointestinal Denies: abdominal pain, nausea, vomiting or diarrhea Genitourinary Denies: painful urination [facility] Medical History (Updated 05/07/23 @ 06:47 by Curt He MD) Surgical History (Updated 05/07/23 @ 02:41 by Arben Sepulveda) Family History (Updated 05/07/23 @ 02:46 by Arben Sepulveda) Grandmother Family history of CHF (congestive heart failure) Family history of cancer Family history of hypertension Father Family history of COPD (chronic obstructive pulmonary disease) Family history of cancer Family history of diabetes mellitus Family history of hypertension Sister Family history of COPD (chronic obstructive pulmonary disease) Mother Family history of cancer Family history of hypertension Family history of myocardial infarction Family history of stroke Brother Family history of cancer Grandfather Family history of cancer Social History Smoking status: Former smoker Meds Home Medications and Allergies Home Medications Medication Instructions Recorded Confirmed Type amiodarone 400 mg tablet 400 mg PO DAILY 03/18/23 05/07/23 History atorvastatin 80 mg tablet 80 mg PO DAILY 03/18/23 05/07/23 History baclofen 5 mg tablet 5 mg PO TID PRN muscle spasm 03/18/23 05/07/23 History clonazepam 0.5 mg tablet 0.5 mg PO TID PRN anxiety 03/18/23 05/07/23 History fluoxetine 20 mg capsule 20 mg PO DAILY 03/18/23 05/07/23 History isosorbide mononitrate 30 mg 30 mg PO DAILY 03/18/23 05/07/23 History tablet,extended release 24 hr levothyroxine 75 mcg tablet 75 mcg PO DAILY 03/18/23 05/07/23 History nitroglycerin 0.4 mg sublingual 0.4 mg sublingual Q5M PRN chest 03/18/23 History tablet pain omeprazole 40 mg capsule,delayed 40 mg PO DAILY 03/18/23 05/07/23 History release potassium chloride 20 mEq 20 meq PO DAILY 03/18/23 05/07/23 History tablet,extended release(part/cryst) ropinirole 2 mg tablet 2 mg PO TID 03/18/23 05/07/23 History torsemide 20 mg tablet 40 mg PO DAILY 03/18/23 05/07/23 History trazodone 50 mg tablet 50 mg PO QPM 03/18/23 05/07/23 History warfarin 5 mg tablet 5 mg PO DAILY 03/18/23 05/07/23 History methocarbamol 750 mg tablet 750 mg PO Q6H PRN pain #30 tabs 05/02/23 05/07/23 Rx tramadol 50 mg tablet 50 mg PO Q6H PRN pain #14 tabs 05/02/23 05/07/23 Rx albuterol sulfate 90 mcg/actuation 1 puff inhalation Q6H PRN SOB 05/07/23 05/07/23 History aerosol inhaler metoprolol succinate 100 mg 100 mg PO DAILY 05/07/23 05/07/23 History tablet,extended release 24 hr Allergies Allergy/AdvReac Type Severity Reaction Status Date / Time erythromycin base Allergy Unknown Verified 05/06/23 22:23 Exam Constitutional Vital Signs, click to edit/add: Last Vital Signs Temp 98.1 F 05/07/23 06:00 Pulse 80 05/07/23 08:00 Resp 20 05/07/23 06:00 BP 109/68 05/07/23 06:00 Pulse Ox 93 L 05/07/23 06:00 O2 Del Method Nasal Cannula 05/07/23 07:36 O2 Flow Rate 2 05/07/23 07:36 Documenting provider has reviewed patient's vital signs: yes Common normals: no apparent distress, oriented x3 and alert HENMT Common normals: normocephalic Eye Common normals: PERRL and EOMs intact bilaterally Respiratory Common normals: normal respiratory effort and clear to auscultation bilaterally Cardio Common normals: regular rate, regular rhythm, no gallops, no murmurs and no rub GI Common normals: Normal to inspection, nondistended, normoactive bowel sounds present and non-tender Extremity Common normals: no pedal edema Results Labs Labs: Short CBC 05/06/23 05/07/23 Range/Units 22:38 04:55 WBC 20.9 H 17.6 H (4.0-11.0) 10^3/uL Hgb 9.2 L 8.5 L (12.0-16.0) g/dL Hct 31.3 L 29.0 L (36.0-48.0) % Plt Count 252 225 (150-450) 10^3/uL BMP 05/06/23 05/07/23 22:38 04:55 Sodium 138 141 Potassium 3.0 L 3.3 L Chloride 101 105 Carbon Dioxide 26.5 27.5 BUN 14.0 14.0 Creatinine 1.14 H 1.10 H Glucose 127 H 107 H Calcium 8.4 L 8.3 L Liver Function 05/07/23 Range/Units 04:55 Total Bilirubin 1.7 H (0.2-1.0) mg/dL AST 35 (15-37) U/L ALT 21 (14-59) U/L Alkaline Phosphatase 211 H (46-116) U/L Albumin 2.4 L (3.4-5.0) g/dL Pulse Oximetry Attestation: I have reviewed the pertinent pulse oximetry results. Imaging CT scan - chest: Attestation: I have reviewed the pertinent imaging results. Assessment and Plan Assessment and Plan (1) Acute on chronic HFrEF (heart failure with reduced ejection fraction): (2) Multifocal pneumonia: (3) Sepsis: (4) Hypertension: (5) Paroxysmal atrial fibrillation: (6) CAD (coronary artery disease): Plan Presented with sepsis based on elevated lactate, elevated WBC, and hypoxia with pneumonia as source of infection. Continue rocephin for pneumonia and use duoneb PRN. Noted fluid overload and give IV lasix. Repeat echo. Resume home medication. Likely will need 2-3 days in the hospital.
[2023-05-07 10:49] LABS: Lactate/Lactic Acid 2.7 mmol/L (0.4-2.0)
[2023-05-07] MEDS: IPRATROPIUM/ALBUTEROL SULFATE 3 ML AMPUL.NEB IH ×2 (11:22→20:43)
[2023-05-07] MEDS: TRAMADOL HCL 50 MG TABLET PO ×2 (13:20→22:52)
[2023-05-07] MEDS: ACETAMINOPHEN 325 MG TABLET 650 MG PO ×2 (13:20→22:51)
[2023-05-07 14:14] LABS: Lactate/Lactic Acid 2.1 mmol/L (0.4-2.0)
[2023-05-07 15:29] LABS: SARS-CoV-2 NAA NOT DETECTED (NOT DETECTE)
--- NOTE | 2023-05-07 15:42 | CM.NOTE ---
Important Message From Medicare discussed with pt, pt verbalizes understanding and signs paper. Original given to pt and copy placed on pt's chart.
[2023-05-07] MEDS: WARFARIN SODIUM 5 MG TABLET PO (16:48)
--- NOTE | 2023-05-07 20:43 | RESP.RT ---
decreased down to 1L
[2023-05-07] MEDS: TRAZODONE HCL 50 MG TABLET PO (21:05)
[2023-05-07] MEDS: ONDANSETRON PF 4 MG/2 ML VIAL IV (21:05)
[2023-05-08] VITALS (8 sets, daily range): BP systolic 101; BP diastolic 66; PULSE 80–98; RESP 18–20; TEMP 36.8; O2SAT 91–93
[2023-05-08] MEDS: FUROSEMIDE 40 MG/4 ML VIAL IVP (01:15)
[2023-05-08 05:45] LABS: Basophils Absolute Auto 0.1 10^3/uL (0.0-0.1); Basophils Percent Auto 0.7 % (0.2-2.0); Eosinophils Absolute Auto 0.6 10^3/uL (0.0-0.7); Eosinophils Percent Auto 4.4 % (0.9-7.0); Hematocrit 31.6 % (36.0-48.0); Hemoglobin 9.2 g/dL (12.0-16.0); Immature Granulocytes Abs Auto 0.08 10^3/uL (0.00-0.03); Immature Granulocytes Pct Auto 0.6 % (0.0-0.5); Lymphocytes Absolute Auto 1.5 10^3/uL (1.2-3.8); Lymphocytes Percent Auto 11.5 % (20.5-60.0); Mean Corpuscular HGB Conc 29.1 g/dL (29.9-35.2); Mean Corpuscular Hemoglobin 20.9 pg (26.7-34.0); Mean Corpuscular Volume 71.7 fL (81.0-99.0); Monocytes Absolute Auto 1.5 10^3/uL (0.3-0.8); Monocytes Percent Auto 11.4 % (1.7-12.0); Neutrophils Absolute Auto 9.6 10^3/uL (1.4-6.5); Neutrophils Percent Auto 71.4 % (43.0-75.0); Platelet Count 224 10^3/uL (150-450); Red Blood Count 4.41 10^6/uL (4.20-5.40); Red Cell Distribution Width 19.7 % (11.0-15.0); White Blood Count 13.4 10^3/uL (4.0-11.0)
[2023-05-08 05:56] LABS: Anion Gap 14.2; BUN Creatinine Ratio 13.5; Calcium 8.6 mg/dL (8.5-10.1); Carbon Dioxide 27.2 mmol/L (21.0-32.0); Chloride 100 mmol/L (98-107); Estimated GFR (African America >60 (>=60); Estimated GFR (Non-African Ame 55 (>=60); Glucose 90 mg/dL (74-106); Potassium 3.4 mmol/L (3.5-5.1); Sodium 138 mmol/L (136-145)
[2023-05-08] MEDS: CLONAZEPAM 0.5 MG TABLET PO (06:05)
[2023-05-08] MEDS: OMEPRAZOLE 40 MG CAPSULE.DR PO (06:05)
[2023-05-08] MEDS: ROPINIROLE HCL 1 MG TABLET 2 MG PO (06:05)
[2023-05-08] MEDS: LEVOTHYROXINE SODIUM 75 MCG TABLET PO (06:05)
--- NOTE | 2023-05-08 09:26 | XR_ITS ---
The [address] [address] Patient Name: HORACIO LOMBARDI MRN: [id number] date: 1970 Sex: F Assigned Patient Location: [place] Current Patient Location: [place] Accession/Order Number: [id number] Exam Date: 05/08/2023 10:10 Report Date: 05/08/2023 10:26 At the request of: SHAIKH JAMI Procedure: XR chest 1V EXAM: XR chest 1V HISTORY: SOB COMPARISON: Chest radiograph 05/07/2023. TECHNIQUE: One view chest FINDINGS/IMPRESSION: Unchanged diffuse hazy opacities seen throughout the lungs without focal consolidation. No sizable pleural effusion or pneumothorax. Stable significant cardiomegaly. 3-lead left chest pacemaker/AICD. Postsurgical changes of the mediastinum and sternum. Cardiac valve prosthesis. The visualized upper abdomen is unremarkable. No acute osseous abnormality. Electronically authenticated by: AKIL SEPULVEDA Date: 05/08/2023 10:26
[2023-05-08] MEDS: AMIODARONE HCL 200 MG TABLET 400 MG PO (09:37)
[2023-05-08] MEDS: POTASSIUM CHLORIDE 10 MEQ ER TABLET 20 MEQ PO (09:37)
[2023-05-08] MEDS: ATORVASTATIN CALCIUM 40 MG TABLET 80 MG PO (09:37)
[2023-05-08] MEDS: ISOSORBIDE MONONITRATE 30 MG TAB.ER.24H PO (09:37)
[2023-05-08] MEDS: METOPROLOL SUCCINATE 100 MG TAB.ER.24H PO (09:38)
[2023-05-08] MEDS: TRAMADOL HCL 50 MG TABLET PO (09:38)
[2023-05-08] MEDS: ACETAMINOPHEN 325 MG TABLET 650 MG PO (09:38)
[2023-05-08] MEDS: WARFARIN SODIUM 5 MG TABLET 10 MG PO (11:47)
[2023-05-08] MEDS: FLUOXETINE HCL 20 MG CAPSULE 40 MG PO (11:48)
--- NOTE | 2023-05-08 23:21 | PM.DS1 ---
DS: Providers Provider Date of admission: 05/07/23 02:13 Primary care physician: Shaikh Crystal MD Attending physician on discharge: Shaikh Crystal Discharging clinician: Shaikh Crystal Anticipated date of discharge: 05/08/23 DS: Diagnosis Discharge Diagnosis (1) Acute on chronic HFrEF (heart failure with reduced ejection fraction): Assessment and plan: More or less euvolemic on exam today. Will d/c home on oral Lasix 40 q12. (2) Acute respiratory failure with hypoxia: Assessment and plan: sec to PNA and acute on chronic systolic HF. Back to RA. Required 2 L O2 via NC. 88% on RA when she presented to ED. (3) Multifocal pneumonia: Assessment and plan: Negative blood culture. No sputum collected for culture. Negative for COVID. Community acquired PNA. Will d/c on oral Ceftin. (4) Sepsis: Assessment and plan: Stable hemodynamics. Stable for d/c. (5) Hypertension: Assessment and plan: Stable. C/w home medications. (6) Paroxysmal atrial fibrillation: Assessment and plan: s/p AICD. On Coumadin for Anti coagulation. She is also using Amiodarone for Afib. (7) Mitral valve replaced: Assessment and plan: s/p bioprosthetic MVR. On Coumadin for Anticoagulation due to concurrent hx of Afib. (8) CAD (coronary artery disease): Assessment and plan: Stable. C.w ASA, BB, statin. No active cardiac ischemia. (9) Hypothyroid: Assessment and plan: C/w synthyroid. (10) Hyperlipidemia: Assessment and plan: C/w lipitor (11) RLS (restless legs syndrome): Assessment and plan: c/w requip (12) ANTONINA (generalized anxiety disorder): Assessment and plan: On Prozac and Klonopin. Prozac recently increased to 40 mg daily as outpatient for poorly controlled anxiety. DS: Summary Hospital Course Hospital Course: Patient presented to ED with worsening SOB, LE edema and was admitted for acute resp failure with hypoxia sec to multi focal pneumonia and acute on chronic systolic HF. Patient was started on IV Rocephin for community acquired pneumonia and IV lasix 40 q12. Patient responded well and improved with resolution of hypoxia, LE edema and resp symptoms. Patient's 2D ECHO showed severely reduced EF, mod-severe TR, well seated bioprosthetic mitral valve. Patient stable for d/c on oral lasix 40 q12 and Ceftin for treatment of her CAP. Patient was previously on Torsemide and it was discontinued. Patient's INR was sub therapeutic and was asked to use 7.5 mg coumadin daily for one week and have her INR checked in one week. Patient asked to f/u with PCP in one week. Status at Discharge Functional status at discharge: independent ambulation Overall status at discharge: patient is back to baseline Time Spent with Patient Time attestation: Total time spent providing and/or coordinating discharge services: Time spent: greater than 30 minutes Exam Constitutional Vital Signs, click to edit/add: Last Vital Signs Temp 98.2 F 05/08/23 06:00 Pulse 80 05/08/23 12:21 Resp 18 05/08/23 08:00 BP 101/66 05/08/23 06:00 Pulse Ox 91 L 05/08/23 06:00 O2 Del Method Nasal Cannula 05/08/23 11:10 O2 Flow Rate 1 05/08/23 04:59 Documenting provider has reviewed patient's vital signs: yes Common normals: no apparent distress and oriented x3 General appearance: cooperative HENMT Common normals: normocephalic and head/scalp atraumatic Head and scalp: normocephalic and atraumatic Eye Common normals: conjunctivae normal and no scleral icterus Conjunctiva: conjunctiva(e) normal Respiratory Common normals: normal respiratory effort and clear to auscultation bilaterally Effort & inspection: able to speak in complete sentences Auscultation: clear to auscultation bilaterally Cardio Common normals: regular rate, S1 normal heart sound and S2 normal heart sound Rate: regular rate Heart sounds: S1 normal and S2 normal GI Common normals: Normal to inspection, nondistended, normoactive bowel sounds present, soft to palpation, non-tender and no hepatosplenomegaly Palpation: soft and no hepatosplenomegaly Extremity Common normals: no clubbing, cyanosis or edema Neuro Common normals: oriented x3, moves all extremities and no focal motor deficits Psych Common normals: mental status grossly normal, denies hallucinations, denies homicidal ideation and denies suicidal ideation DS: Data Data Completed and Pending Labs on day of discharge: Labs from last 24 hours 05/08/23 05:15 WBC 13.4 H RBC 4.41 Hgb 9.2 L Hct 31.6 L MCV 71.7 L MCH 20.9 L MCHC 29.1 L RDW 19.7 H Plt Count 224 MPV 0.0 L Neut % (Auto) 71.4 Lymph % (Auto) 11.5 L Caswell % (Auto) 11.4 Eos % (Auto) 4.4 Baso % (Auto) 0.7 Neut # (Auto) 9.6 H Lymph # (Auto) 1.5 [place]well # (Auto) 1.5 H Eos # (Auto) 0.6 Baso # (Auto) 0.1 Abs Immat Gran (auto) 0.08 H Imm/Tot Granulo (auto) 0.6 H Sodium 138 Potassium 3.4 L Chloride 100 Carbon Dioxide 27.2 Anion Gap 14.2 BUN 14.0 Creatinine 1.04 H Est GFR ( Amer) >60 Est GFR (Non-Af Amer) 55 L BUN/Creatinine Ratio 13.5 Glucose 90 Calcium 8.6 Preliminary micro results at discharge 05/06/23 00:16 - Preliminary Blood NO GROWTH AT 36-48 HOURS. FINAL TO FOLLOW. 05/06/23 00:15 Blood Culture Result 1 - Preliminary Blood NO GROWTH AT 36-48 HOURS. FINAL TO FOLLOW. Discharge Plan Discharge Disposition: Home, Self-Care Condition: Fair Discharge Medications: New furosemide [Lasix] 40 mg tablet 40 mg PO BID Qty: 60 0RF cefuroxime axetil 500 mg tablet 500 mg PO BID Qty: 10 0RF Continued metoprolol succinate 100 mg tablet extended release 24 hr 100 mg PO DAILY albuterol sulfate 90 mcg/actuation HFA aerosol inhaler 1 puff INHALATION Q6H PRN (Reason: SOB) [id number] [Fioricet] 50-300-40 mg capsule 1 cap PO Q4H PRN (Reason: headache) atorvastatin 80 mg tablet 80 mg PO DAILY trazodone 50 mg tablet 50 mg PO QPM isosorbide mononitrate 30 mg tablet extended release 24 hr 30 mg PO DAILY clonazepam 0.5 mg tablet 0.5 mg PO TID PRN (Reason: anxiety) omeprazole 40 mg capsule,delayed release(DR/EC) 40 mg PO DAILY levothyroxine 75 mcg tablet 75 mcg PO DAILY potassium chloride 20 mEq tablet,ER particles/crystals 20 meq PO DAILY ropinirole 2 mg tablet 2 mg PO TID warfarin 5 mg tablet 5 mg PO DAILY Patient Comments: 1.5 M,W,F, 1 tab other days nitroglycerin 0.4 mg tablet, sublingual 0.4 mg sublingual Q5M PRN (Reason: chest pain) baclofen 5 mg tablet 5 mg PO TID PRN (Reason: muscle spasm) Changed amiodarone 400 mg tablet 200 mg PO DAILY Qty: 0 0RF fluoxetine 20 mg capsule 40 mg PO DAILY Qty: 0 0RF Discontinued torsemide 20 mg tablet 40 mg PO DAILY Hold Instructions: Doctor's Order Activity: increase activity as tolerated Diet: advance to your usual diet Patient Instructions: Cefuroxime (By mouth), Furosemide (By mouth), Heart Failure (DC), Pulmonary Edema (DC) Forms: Portal Instructions Referrals: Shaikh Rojas MD [Primary Care Provider] - 1 week Follow Up Appointments: PCP in one week. Dr. Rojas Discharge Date/Time: 05/08/23 14:00
--- NOTE | 2023-05-10 11:33 | CM.DCFOLLOWU ---
1st attempt discharge follow up call made by Maggie Martin on 05/10/23, no answer at this time
--- NOTE | 2023-05-11 15:44 | CM.DCFOLLOWU ---
2nd attempt discharge follow up call made by Maggie Martin on 05/11/23, no answer at this time.
--- NOTE | 2023-05-14 15:05 | CM.DCFOLLOWU ---
3rd attempt discharge follow up call made by Maggie Martin on 05/14/23, no answer at this time. 3 attempts were made, no answer on any of the attempts.
== END 2023-05-08 14:00 | disposition home or self-care (01) | DRG 871 ==
LOC: ER 05-07 01:29 → MS 05-07 02:13
PROVIDERS: Family Medicine; Admitting Provider Internal Medicine; Emergency Provider Emergency Medicine; PCP Internal Medicine; Visit Provider Internal Medicine
DX: A41.9 Sepsis, unspecified organism (principal); I50.23 Acute on chronic systolic (congestive) heart failure; J18.9 Pneumonia, unspecified organism; J96.01 Acute respiratory failure with hypoxia; I11.0 Hypertensive heart disease with heart failure; I48.0 Paroxysmal atrial fibrillation; I25.10 Atherosclerotic heart disease of native coronary artery without angina pectoris; Z87.891 Personal history of nicotine dependence; Z79.01 Long term (current) use of anticoagulants; Z79.899 Other long term (current) drug therapy; I25.2 Old myocardial infarction; R50.9 Fever, unspecified; Z95.810 Presence of automatic (implantable) cardiac defibrillator; Z95.5 Presence of coronary angioplasty implant and graft; E03.9 Hypothyroidism, unspecified; E78.5 Hyperlipidemia, unspecified; G25.81 Restless legs syndrome; F41.1 Generalized anxiety disorder; R79.89 Other specified abnormal findings of blood chemistry; R65.20 Severe sepsis without septic shock
CPT/HCPCS: 36415; 71045; 71275; 80048; 80053; 83605; 83735; 83880; 84439; 84481; 84484; 85025; 85378; 85610; 87040; 87635; 87811; 93005; 93306; 94640; 94761; 96365; 96366; 96372; 96375; 96376; 99285; Q9967; U0003

== ENCOUNTER 2023-05-19 21:43 | Observation (INO) | payer MEDICARE, MEDICAID, SELFPAY ==
[2023-05-19] VITALS (13 sets, daily range): BP systolic 111–142; BP diastolic 63–86; PULSE 80–90; RESP 12–27; TEMP 36.8; O2SAT 92–100; BMI 26.3
--- NOTE | 2023-05-19 21:44 | ECG_ITS ---
The [facility] Test Date: 2023-05-19 Pat Name: HORACIO LOMBARDI Department: Room: - Gender: Female [employer]: : 1970 Requested By: [id number] Order Number: [id number] Reading MD: OLIVA OLIVIER Measurements Intervals Superior Rate: 48 P: -81 ME: 262 QRS: -87 QRSD: 208 T: 99 QT: 502 QTc: 467 Interpretive Statements [id number] Electronic ventricular pacemaker 9120 atypical ECG Electronically Signed On 05-20-2023 7:12:57 EDT by OLIVA OLIVIER
--- NOTE | 2023-05-19 21:49 | ED_ITS ---
Documented by User: SAMREEN Dumont 05/19/23 21:57 HPI - General Adult General Chief complaint: Abdominal Pain Stated complaint: Abdominal Pain Time Seen by Provider: 05/19/23 21:47 Source: patient Mode of arrival: ambulance History of Present Illness HPI narrative: patient is a 52-year-old female who presents to the emergency department by ambulance for generalized weakness and nausea for the last two days. Patient was seen in this emergency department two weeks ago and admitted for congestive heart failure exacerbation and pneumonia. She states she believes she has been home for at least 4-5 days. She stopped her Lasix two days ago because she has not been eating and drinking well. She denies fevers, vomiting. She is continuing to cough with occasional sputum production. No hemoptysis. She ivan eves the lower extremity swelling that she had two weeks ago is significantly better. She takes Coumadin for atrial fibrillation. She has finished her antibiotics for pneumonia. She reports discomfort to the upper abdomen associated with nausea. She has had mild diarrhea since taking the antibiotics. she denies chest pain. Related Data Home Medications Medication Instructions Recorded Confirmed atorvastatin 80 mg tablet 80 mg PO DAILY 03/18/23 05/07/23 baclofen 5 mg tablet 5 mg PO TID PRN muscle spasm 03/18/23 05/07/23 clonazepam 0.5 mg tablet 0.5 mg PO TID PRN anxiety 03/18/23 05/07/23 isosorbide mononitrate 30 mg 30 mg PO DAILY 03/18/23 05/07/23 tablet,extended release 24 hr levothyroxine 75 mcg tablet 75 mcg PO DAILY 03/18/23 05/07/23 nitroglycerin 0.4 mg sublingual 0.4 mg sublingual Q5M PRN chest 03/18/23 05/07/23 tablet pain omeprazole 40 mg capsule,delayed 40 mg PO DAILY 03/18/23 05/07/23 release potassium chloride 20 mEq 20 meq PO DAILY 03/18/23 05/07/23 tablet,extended release(part/cryst) ropinirole 2 mg tablet 2 mg PO TID 03/18/23 05/07/23 trazodone 50 mg tablet 50 mg PO QPM 03/18/23 05/07/23 warfarin 5 mg tablet 5 mg PO DAILY 03/18/23 05/07/23 albuterol sulfate 90 mcg/actuation 1 puff inhalation Q6H PRN SOB 05/07/23 05/07/23 aerosol inhaler kjxgdvqaie-msruoyakeosej-xstcojnn 1 cap PO Q4H PRN headache 05/07/23 05/07/23 50 mg-300 mg-40 mg capsule (Fioricet) metoprolol succinate 100 mg 100 mg PO DAILY 05/07/23 05/07/23 tablet,extended release 24 hr Previous Rx's Medication Instructions Recorded amiodarone 400 mg tablet 200 mg PO DAILY #0 tabs 05/08/23 cefuroxime axetil 500 mg tablet 500 mg PO BID #10 tabs 05/08/23 fluoxetine 20 mg capsule 40 mg PO DAILY #0 caps 05/08/23 furosemide 40 mg tablet (Lasix) 40 mg PO BID #60 tabs 05/08/23 Allergies Allergy/AdvReac Type Severity Reaction Status Date / Time erythromycin base Allergy Unknown Verified 05/06/23 22:23 ondansetron [From Zofran] AdvReac tachycardia Verified 05/20/23 00:11 Review of Systems ROS Constitutional Denies: fever or chills Ears, nose, mouth, and throat Denies: throat pain Cardiovascular Denies: chest pain Respiratory Reports: cough; Denies: shortness of breath Gastrointestinal Reports: abdominal pain, nausea and diarrhea Genitourinary Denies: painful urination Musculoskeletal Denies: back pain, neck pain or extremity pain Integumentary/Breast Denies: rash Neurological Denies: headache Hematologic/Lymphatic Denies: easy bruising PFSH PFS Medical History (Updated 05/20/23 @ 04:06 by Lina Martin MD) Surgical History (Updated 05/07/23 @ 02:41 by Arben Sepulveda) Family History (Updated 05/07/23 @ 02:46 by Arben Sepulveda) Grandmother Family history of CHF (congestive heart failure) Family history of cancer Family history of hypertension Father Family history of COPD (chronic obstructive pulmonary disease) Family history of cancer Family history of diabetes mellitus Family history of hypertension Sister Family history of COPD (chronic obstructive pulmonary disease) Mother Family history of cancer Family history of hypertension Family history of myocardial infarction Family history of stroke Brother Family history of cancer Grandfather Family history of cancer Social History Smoking status: Former smoker Exam Narrative Exam Narrative: Gen.: Awake, alert, in no distress Head: Normocephalic, atraumatic ENT: Moist mucous membranes Respiratory: No respiratory distress, diminished but clear Cardio: Regular rate and rhythm Gastrointestinal: Abdomen is mild firmness noted to the epigastrium of the abdomen with mild tenderness. No guarding or rebound. No significant distention Extremities: Moves extremities equally, no pitting edema Psych: Normal mood and affect Neuro: No focal neuro deficit Skin: Warm, dry, intact Constitutional Vital Signs, click to edit/add: Last Vital Signs Temp 98.2 F 05/19/23 21:44 Pulse 89 05/20/23 03:15 Resp 31 H 05/20/23 03:15 BP 108/63 05/20/23 03:15 Pulse Ox 98 05/20/23 01:47 O2 Del Method Room Air 05/20/23 01:05 Course Vital Signs Vital signs: Vital Signs Temperature 98.2 F 05/19/23 21:44 Pulse Rate 80 05/19/23 21:44 Respiratory Rate 16 05/19/23 21:44 Blood Pressure 118/79 05/19/23 21:44 Pulse Oximetry 98 05/19/23 21:44 Oxygen Delivery Method Room Air 05/19/23 21:44 Temperature 98.2 F 05/19/23 21:44 Pulse Rate 89 05/20/23 03:15 Respiratory Rate 31 H 05/20/23 03:15 Blood Pressure 108/63 05/20/23 03:15 Pulse Oximetry 98 05/20/23 01:47 Oxygen Delivery Method Room Air 05/20/23 01:05 Medical Decision Making [place] Narrative Medical decision making narrative: 2154: patient is ordered to have gentle fluids, Phenergan for nausea. Lab studies are ordered with abdominal x-rays and chest x-ray. Vital signs are within normal limits and the patient is in no respiratory distress with no complaints of chest pain. Initial evaluation is ordered and case is turned over to attending physician for disposition. Medical Records Medical records reviewed: Yes I reviewed the patient's medical records Lab Data Lab results reviewed: Yes I reviewed the patient's lab results Labs: Lab Results 05/19/23 05/19/23 05/20/23 Range/Units 22:00 23:50 00:37 WBC 9.5 (4.0-11.0) 10^3/uL RBC 4.25 (4.20-5.40) 10^6/uL Hgb 8.8 L (12.0-16.0) g/dL Hct 31.4 L (36.0-48.0) % MCV 73.9 L (81.0-99.0) fL MCH 20.7 L (26.7-34.0) pg MCHC 28.0 L (29.9-35.2) g/dL RDW 20.3 H (11.0-15.0) % Plt Count 349 (150-450) 10^3/uL MPV 10.7 (9.5-13.5) fL Neut % (Auto) 61.6 (43.0-75.0) % Lymph % (Auto) 23.0 (20.5-60.0) % [place] % (Auto) 12.8 H (1.7-12.0) % Eos % (Auto) 0.2 L (0.9-7.0) % Baso % (Auto) 1.4 (0.2-2.0) % Neut # (Auto) 5.8 (1.4-6.5) 10^3/uL Lymph # (Auto) 2.2 (1.2-3.8) 10^3/uL [place] # (Auto) 1.2 H (0.3-0.8) 10^3/uL Eos # (Auto) 0.0 (0.0-0.7) 10^3/uL Baso # (Auto) 0.1 (0.0-0.1) 10^3/uL Abs Immat Gran (auto) 0.09 H (0.00-0.03) 10^3/uL Imm/Tot Granulo (auto) 1.0 H (0.0-0.5) % PT 13.1 H (9.0-11.6) sec INR 1.25 VBG pH 7.421 (7.330-7.430) VBG pCO2 25.6 L (40.0-52.0) mmHg Sodium 134 L (136-145) mmol/L Potassium 4.8 (3.5-5.1) mmol/L Chloride 104 (98-107) mmol/L Carbon Dioxide 18.6 L (21.0-32.0) mmol/L Anion Gap 16.2 BUN 18.0 (7.0-18.0) mg/dL Creatinine 1.20 H (0.55-1.02) mg/dL Est GFR ( Amer) 57 L (>=60) Est GFR (Non-Af Amer) 47 L (>=60) BUN/Creatinine Ratio 15.0 Glucose 113 H (74-106) mg/dL Lactate 2.4 H* 3.2 H* (0.4-2.0) mmol/L Calcium 8.0 L (8.5-10.1) mg/dL Total Bilirubin 0.7 (0.2-1.0) mg/dL AST 101 H (15-37) U/L ALT 38 (14-59) U/L Alkaline Phosphatase 310 H (46-116) U/L Troponin I High Sens 11.7 (4.0-51.3) pg/mL NT-Pro-B Natriuret Pep 52303.0 H* (<=900.0) pg/mL Total Protein 6.6 (6.4-8.2) g/dL Albumin 2.8 L (3.4-5.0) g/dL Globulin 3.8 g/dL Albumin/Globulin Ratio 0.7 Lipase 48.0 L (73.0-393.0) U/L TSH 6.375 H (0.358-3.740) uIU/mL Urine Color Lt. yellow (YELLOW) Urine Clarity Clear (CLEAR) Urine pH 6.0 (5.0-9.0) Ur Specific [place] 1.010 (1.005-1.025) Urine Protein Trace (NEG/TRACE) mg/dL Urine Glucose (UA) Negative (NEGATIVE) mg/dL Urine Ketones Negative (NEGATIVE) mg/dL Urine Occult Blood Trace-i (NEGATIVE) Urine Nitrite Negative (NEGATIVE) Urine Bilirubin Negative (NEGATIVE) Urine Urobilinogen 0.2 (0.2-1.0) EU/dL Ur Leukocyte Esterase Negative (NEGATIVE) 05/20/23 Range/Units 03:00 WBC (4.0-11.0) 10^3/uL RBC (4.20-5.40) 10^6/uL Hgb (12.0-16.0) g/dL Hct (36.0-48.0) % MCV (81.0-99.0) fL MCH (26.7-34.0) pg MCHC (29.9-35.2) g/dL RDW (11.0-15.0) % Plt Count (150-450) 10^3/uL MPV (9.5-13.5) fL Neut % (Auto) (43.0-75.0) % Lymph % (Auto) (20.5-60.0) % [place] % (Auto) (1.7-12.0) % Eos % (Auto) (0.9-7.0) % Baso % (Auto) (0.2-2.0) % Neut # (Auto) (1.4-6.5) 10^3/uL Lymph # (Auto) (1.2-3.8) 10^3/uL [place] # (Auto) (0.3-0.8) 10^3/uL Eos # (Auto) (0.0-0.7) 10^3/uL Baso # (Auto) (0.0-0.1) 10^3/uL Abs Immat Gran (auto) (0.00-0.03) 10^3/uL Imm/Tot Granulo (auto) (0.0-0.5) % PT (9.0-11.6) sec INR VBG pH (7.330-7.430) VBG pCO2 (40.0-52.0) mmHg Sodium (136-145) mmol/L Potassium (3.5-5.1) mmol/L Chloride (98-107) mmol/L Carbon Dioxide (21.0-32.0) mmol/L Anion Gap BUN (7.0-18.0) mg/dL Creatinine (0.55-1.02) mg/dL Est GFR ( Amer) (>=60) Est GFR (Non-Af Amer) (>=60) BUN/Creatinine Ratio Glucose (74-106) mg/dL Lactate 3.6 H* (0.4-2.0) mmol/L Calcium (8.5-10.1) mg/dL Total Bilirubin (0.2-1.0) mg/dL AST (15-37) U/L ALT (14-59) U/L Alkaline Phosphatase (46-116) U/L Troponin I High Sens (4.0-51.3) pg/mL NT-Pro-B Natriuret Pep (<=900.0) pg/mL Total Protein (6.4-8.2) g/dL Albumin (3.4-5.0) g/dL Globulin g/dL Albumin/Globulin Ratio Lipase (73.0-393.0) U/L TSH (0.358-3.740) uIU/mL Urine Color (YELLOW) Urine Clarity (CLEAR) Urine pH (5.0-9.0) Ur Specific [place] (1.005-1.025) Urine Protein (NEG/TRACE) mg/dL Urine Glucose (UA) (NEGATIVE) mg/dL Urine Ketones (NEGATIVE) mg/dL Urine Occult Blood (NEGATIVE) Urine Nitrite (NEGATIVE) Urine Bilirubin (NEGATIVE) Urine Urobilinogen (0.2-1.0) EU/dL Ur Leukocyte Esterase (NEGATIVE) ECG Data Attestation: I personally reviewed and interpreted this ECG as follows: (Electronic ventricular pacemaker at a rate of 75, no acute ST elevation or ectopy. EKG reviewed by attending physician) Discharge Plan Discharge Chief Complaint: Abdominal Pain Clinical Impression: Generalized weakness, Nausea, Diarrhea, Fluid overload, Lactic acidosis Patient Disposition: Admitted as Observation Time of Disposition Decision: 04:06 Condition: Fair Prescriptions / Home Meds: No Action metoprolol succinate 100 mg tablet extended release 24 hr 100 mg PO DAILY albuterol sulfate 90 mcg/actuation HFA aerosol inhaler 1 puff INHALATION Q6H PRN (Reason: SOB) [id number]-[id number]-[id number] [Fioricet] 50-300-40 mg capsule 1 cap PO Q4H PRN (Reason: headache) furosemide [Lasix] 40 mg tablet 40 mg PO BID Qty: 60 0RF amiodarone 400 mg tablet 200 mg PO DAILY Qty: 0 0RF fluoxetine 20 mg capsule 40 mg PO DAILY Qty: 0 0RF cefuroxime axetil 500 mg tablet 500 mg PO BID Qty: 10 0RF atorvastatin 80 mg tablet 80 mg PO DAILY trazodone 50 mg tablet 50 mg PO QPM isosorbide mononitrate 30 mg tablet extended release 24 hr 30 mg PO DAILY clonazepam 0.5 mg tablet 0.5 mg PO TID PRN (Reason: anxiety) omeprazole 40 mg capsule,delayed release(DR/EC) 40 mg PO DAILY levothyroxine 75 mcg tablet 75 mcg PO DAILY potassium chloride 20 mEq tablet,ER particles/crystals 20 meq PO DAILY ropinirole 2 mg tablet 2 mg PO TID warfarin 5 mg tablet 5 mg PO DAILY Patient Comments: 1.5 M,W,F, 1 tab other days nitroglycerin 0.4 mg tablet, sublingual 0.4 mg sublingual Q5M PRN (Reason: chest pain) baclofen 5 mg tablet 5 mg PO TID PRN (Reason: muscle spasm) Referrals: Shaikh Rojas MD [Primary Care Provider] - 1 week Documented by User: Lina Martin MD 05/20/23 04:06 HPI - General Adult General Chief complaint: Abdominal Pain Stated complaint: Abdominal Pain Time Seen by Provider: 05/19/23 21:47 Related Data Home Medications Medication Instructions Recorded Confirmed atorvastatin 80 mg tablet 80 mg PO DAILY 03/18/23 05/07/23 baclofen 5 mg tablet 5 mg PO TID PRN muscle spasm 03/18/23 05/07/23 clonazepam 0.5 mg tablet 0.5 mg PO TID PRN anxiety 03/18/23 05/07/23 isosorbide mononitrate 30 mg 30 mg PO DAILY 03/18/23 05/07/23 tablet,extended release 24 hr levothyroxine 75 mcg tablet 75 mcg PO DAILY 03/18/23 05/07/23 nitroglycerin 0.4 mg sublingual 0.4 mg sublingual Q5M PRN chest 03/18/23 05/07/23 tablet pain omeprazole 40 mg capsule,delayed 40 mg PO DAILY 03/18/23 05/07/23 release potassium chloride 20 mEq 20 meq PO DAILY 03/18/23 05/07/23 tablet,extended release(part/cryst) ropinirole 2 mg tablet 2 mg PO TID 03/18/23 05/07/23 trazodone 50 mg tablet 50 mg PO QPM 03/18/23 05/07/23 warfarin 5 mg tablet 5 mg PO DAILY 03/18/23 05/07/23 albuterol sulfate 90 mcg/actuation 1 puff inhalation Q6H PRN SOB 05/07/23 05/07/23 aerosol inhaler gmrrjpdxca-lcieommaqyqmo-xtlpokgc 1 cap PO Q4H PRN headache 05/07/23 05/07/23 50 mg-300 mg-40 mg capsule (Fioricet) metoprolol succinate 100 mg 100 mg PO DAILY 05/07/23 05/07/23 tablet,extended release 24 hr Previous Rx's Medication Instructions Recorded amiodarone 400 mg tablet 200 mg PO DAILY #0 tabs 05/08/23 cefuroxime axetil 500 mg tablet 500 mg PO BID #10 tabs 05/08/23 fluoxetine 20 mg capsule 40 mg PO DAILY #0 caps 05/08/23 furosemide 40 mg tablet (Lasix) 40 mg PO BID #60 tabs 05/08/23 Allergies Allergy/AdvReac Type Severity Reaction Status Date / Time erythromycin base Allergy Unknown Verified 05/06/23 22:23 ondansetron [From Zofran] AdvReac tachycardia Verified 05/20/23 00:11 [facility] Medical History (Updated 05/20/23 @ 04:06 by Lina Martin MD) Surgical History (Updated 05/07/23 @ 02:41 by Arben Sepulveda) Family History (Updated 05/07/23 @ 02:46 by Arben Sepulveda) Grandmother Family history of CHF (congestive heart failure) Family history of cancer Family history of hypertension Father Family history of COPD (chronic obstructive pulmonary disease) Family history of cancer Family history of diabetes mellitus Family history of hypertension Sister Family history of COPD (chronic obstructive pulmonary disease) Mother Family history of cancer Family history of hypertension Family history of myocardial infarction Family history of stroke Brother Family history of cancer Grandfather Family history of cancer Social History Smoking status: Former smoker Exam Constitutional Vital Signs, click to edit/add: Last Vital Signs Temp 98.2 F 05/19/23 21:44 Pulse 89 05/20/23 03:15 Resp 31 H 05/20/23 03:15 BP 108/63 05/20/23 03:15 Pulse Ox 98 05/20/23 01:47 O2 Del Method Room Air 05/20/23 01:05 Course Vital Signs Vital signs: Vital Signs Temperature 98.2 F 05/19/23 21:44 Pulse Rate 80 05/19/23 21:44 Respiratory Rate 16 05/19/23 21:44 Blood Pressure 118/79 05/19/23 21:44 Pulse Oximetry 98 05/19/23 21:44 Oxygen Delivery Method Room Air 05/19/23 21:44 Temperature 98.2 F 05/19/23 21:44 Pulse Rate 89 05/20/23 03:15 Respiratory Rate 31 H 05/20/23 03:15 Blood Pressure 108/63 05/20/23 03:15 Pulse Oximetry 98 05/20/23 01:47 Oxygen Delivery Method Room Air 05/20/23 01:05 Medical Decision Making [facility] Narrative Medical decision making narrative: 2154: patient is ordered to have gentle fluids, Phenergan for nausea. Lab studies are ordered with abdominal x-rays and chest x-ray. Vital signs are within normal limits and the patient is in no respiratory distress with no complaints of chest pain. Initial evaluation is ordered and case is turned over to attending physician for disposition. This 52-year-old female was seen and evaluated in conjunction with the physician first assistant manager. She presents for evaluation of some mild shortness of breath with epigastric abdominal pain with nausea and several episodes of diarrhea. She states she has had at least 4-5 episodes of diarrhea today. Her EKG was reviewed and is a paced rhythm. She is on Coumadin for atrial fibrillation. An IV was placed and she was medicated with IV fluids and Phenergan. I was called to the room because she started becoming short of breath when she was given the Phenergan. Her lungs are clear, pulse ox is 100 percent. She was given 12.5 gram of IV Benadryl because her shortness of breath really appeared to be more of a reaction to the Phenergan. She has not had any vomiting or diarrhea while in the emergency department. Her labs are reviewed. As a normal white count. Hemoglobin his midly low at 8.8. Her troponin is normal. BNP is elevated greater than 11,000. Her electrolytes are normal with a mild elevation in her creatinine at 1.2. Initial lactic acid was 2.4 and repeat lactic acid is 3.2. She is not febrile or tachycardic. Vital signs have been stable. She called me back to the room because she was feeling increasingly anxious and was medicated with IV Ativan. CT scan abdomen and pelvis without contrast was ordered as the patient does not wish to have another IV line placed and has an IV in her hand. Her CT scan did not show any acute findings. The patient requested some soda to drink and is eating varsha crackers. Her gastrointestinal symptoms appear to have improved. I offered her admission but she would rather be discharged home. She states that she cannot rest or sleep in the hospital. She does request an additional dose of Ativan because her restless legs are starting to bother her again. She will be remedicated with Ativan and continually monitored in the emergency department until she is able to be discharged home later this morning when she can get a ride home. She does admit that she stopped taking her Lasix because she felt she was getting dehydrated from the diarrhea. Her lactic acid has continued to climb from 2.6 to 3.2 to 3.6 despite IV hydration and now PO hydration. She is no longer having abdominal discomfort, her abdomen is soft and non-tender, there is nothing concerning for mesenteric ischemia. She is afebrile. In light of her complicated medical history and recent hospitalization as well as rising lactic acid levels, I suggested that she be admitted for further evaluation, gentle diuresis and gentle hydration and to rule out C diff diarrhea. She reluctantly agreed. Case was discussed with the telehospitalist and she is accepted for admission, med/surg with telemetry monitoring Medical Records Medical records narrative: The [address] [address] [address] Scan Report Signed Patient: HORACIO LOMBARDI MR#: [id number] : 1970 Acct:[id number] Age/Sex: 52 / F ADM Date: 05/19/23 Loc: ER Attending Dr: Ordering Physician: Lina Martin Date of Service: 05/20/23 Procedure(s): CT abdomen pelvis wo con Accession Number(s): [id number] cc: Shaikh Charlene Rojas~ The [address] [address] Patient Name: HORACIO LOMBARDI MRN: [id number] date: 1970 Sex: F Assigned Patient Location: ER Current Patient Location: ER Accession/Order Number: [id number] Exam Date: 05/20/2023 01:30 Report Date: 05/20/2023 02:43 At the request of: LINA MARKER Procedure: CT abdomen pelvis wo con EXAM: CT abdomen pelvis wo con HISTORY: abd pain COMPARISON: Acute abdominal series, 05/19/2023. TECHNIQUE: Nonenhanced CT imaging the abdomen and pelvis was performed with sagittal and coronal reconstructions. FINDINGS: CT ABDOMEN: Mitral valve replacement is noted. Cardiac pacing leads are seen in the right atrium and right ventricle. The heart is mildly enlarged. There are extensive calcifications along the lateral wall of the left ventricle, nonspecific. There is no pericardial effusion. Nonspecific bibasilar patchy ground-glass opacities are seen with increased interstitial markings favoring pneumonitis and/or edema with trace layering bilateral pleural effusions. The liver is enlarged at 20 cm in length, but appears otherwise unremarkable. Cholecystectomy clips are noted. There is no biliary ductal dilatation. The exam is limited by the lack of IV contrast. Solid organ lesions or acute abnormalities could be missed. Allowing for this, the pancreas, spleen, adrenal glands, stomach, small bowel and right kidney are grossly unremarkable. There are left renal cortical cysts measuring up to 2 cm. The left kidney is otherwise unremarkable. Moderate aortic and iliac calcifications are noted without aneurysm. CT PELVIS: There appears to be surgical change for prior appendectomy. Prior hysterectomy is noted. The urinary bladder, pelvic small bowel loops and colon appear within normal limits. Mild edematous change is seen in the abdomen and pelvis with diffuse body wall edema. No loculated fluid, free air or soft tissue gas is seen. Postoperative change for L5-S1 discectomy, laminectomy and posterior body fusion is noted. There are chronic appearing compression fractures involving the superior endplates of T11 and L2. No acute osseous abnormality or suspicious bony lesion is seen. CT/CT abdomen pelvis wo con IMPRESSION: 1. Mild abdominal and pelvic ascites with diffuse body wall edema and trace layering bilateral effusions favoring mild anasarca. 2. Bibasilar pulmonary edema and/or pneumonitis. 3. Dense and a nail calcifications along the lateral wall of the left ventricle are etiology determined but may be related to prior infection or infarct. 4. Hepatomegaly. 5. Prior cholecystectomy, hysterectomy and presumed appendectomy. The [address] [address] XRay Report Signed Patient: HORACIO LOMBARDI MR#: [id number] : 1970 Acct:[id number] Age/Sex: 52 / F ADM Date: 05/19/23 Loc: ER Attending Dr: Ordering Physician: Alvarado Mckeon Date of Service: 05/19/23 Procedure(s): XR acute abdomen series Accession Number(s): [id number] cc: Shaikh Charlene Rojas; Alvarado Mckeon~ The [address] [address] Patient Name: HORACIO LOMBARDI MRN: [id number] date: 1970 Sex: F Assigned Patient Location: ED.MAIN Current Patient Location: ED.MAIN Accession/Order Number: [id number] Exam Date: 05/19/2023 23:08 Report Date: 05/19/2023 23:36 At the request of: ALVARADO MCKEON Procedure: XR acute abdomen series EXAMINATION: XR acute abdomen series, 05/19/2023 11:08 PM ED HISTORY:nausea, abdominal pain COMPARISON:Chest x-ray dated 05/08/2023. TECHNIQUE:Frontal images of the chest and abdomen are submitted. FINDINGS: No abnormally dilated loops of bowel are identified. No obvious free air or pneumatosis are present. Surgical clips overlie the medial right upper quadrant. There is spinal hardware in the lumbosacral spine. The cardiac silhouette is enlarged but stable. Patient is status post median sternotomy and prosthetic valve replacement. A left-sided pacemaker is in place. There are numerous interstitial airspace opacities throughout the mid to lower lung becker. There are a few interstitial densities in the upper lung becker with which have improved since the previous exam. These are nonspecific and may be sequela to interstitial edema versus interstitial pneumonitis. There is no costophrenic angle blunting. XR/XR acute abdomen series IMPRESSION: 1. Unremarkable plain film examination of the abdomen. 2. Diffuse interstitial airspace disease in the mid to lower lung becker and minimally in the upper lobes which may represent sequela to interstitial edema versus interstitial pneumonitis. Lab Data Labs: Lab Results 05/19/23 05/19/23 05/20/23 Range/Units 22:00 23:50 00:37 WBC 9.5 (4.0-11.0) 10^3/uL RBC 4.25 (4.20-5.40) 10^6/uL Hgb 8.8 L (12.0-16.0) g/dL Hct 31.4 L (36.0-48.0) % MCV 73.9 L (81.0-99.0) fL MCH 20.7 L (26.7-34.0) pg MCHC 28.0 L (29.9-35.2) g/dL RDW 20.3 H (11.0-15.0) % Plt Count 349 (150-450) 10^3/uL MPV 10.7 (9.5-13.5) fL Neut % (Auto) 61.6 (43.0-75.0) % Lymph % (Auto) 23.0 (20.5-60.0) % [place] % (Auto) 12.8 H (1.7-12.0) % Eos % (Auto) 0.2 L (0.9-7.0) % Baso % (Auto) 1.4 (0.2-2.0) % Neut # (Auto) 5.8 (1.4-6.5) 10^3/uL Lymph # (Auto) 2.2 (1.2-3.8) 10^3/uL [place] # (Auto) 1.2 H (0.3-0.8) 10^3/uL Eos # (Auto) 0.0 (0.0-0.7) 10^3/uL Baso # (Auto) 0.1 (0.0-0.1) 10^3/uL Abs Immat Gran (auto) 0.09 H (0.00-0.03) 10^3/uL Imm/Tot Granulo (auto) 1.0 H (0.0-0.5) % PT 13.1 H (9.0-11.6) sec INR 1.25 VBG pH 7.421 (7.330-7.430) VBG pCO2 25.6 L (40.0-52.0) mmHg Sodium 134 L (136-145) mmol/L Potassium 4.8 (3.5-5.1) mmol/L Chloride 104 (98-107) mmol/L Carbon Dioxide 18.6 L (21.0-32.0) mmol/L Anion Gap 16.2 BUN 18.0 (7.0-18.0) mg/dL Creatinine 1.20 H (0.55-1.02) mg/dL Est GFR ( Amer) 57 L (>=60) Est GFR (Non-Af Amer) 47 L (>=60) BUN/Creatinine Ratio 15.0 Glucose 113 H (74-106) mg/dL Lactate 2.4 H* 3.2 H* (0.4-2.0) mmol/L Calcium 8.0 L (8.5-10.1) mg/dL Total Bilirubin 0.7 (0.2-1.0) mg/dL AST 101 H (15-37) U/L ALT 38 (14-59) U/L Alkaline Phosphatase 310 H (46-116) U/L Troponin I High Sens 11.7 (4.0-51.3) pg/mL NT-Pro-B Natriuret Pep 35617.0 H* (<=900.0) pg/mL Total Protein 6.6 (6.4-8.2) g/dL Albumin 2.8 L (3.4-5.0) g/dL Globulin 3.8 g/dL Albumin/Globulin Ratio 0.7 Lipase 48.0 L (73.0-393.0) U/L TSH 6.375 H (0.358-3.740) uIU/mL Urine Color Lt. yellow (YELLOW) Urine Clarity Clear (CLEAR) Urine pH 6.0 (5.0-9.0) Ur Specific [place] 1.010 (1.005-1.025) Urine Protein Trace (NEG/TRACE) mg/dL Urine Glucose (UA) Negative (NEGATIVE) mg/dL Urine Ketones Negative (NEGATIVE) mg/dL Urine Occult Blood Trace-i (NEGATIVE) Urine Nitrite Negative (NEGATIVE) Urine Bilirubin Negative (NEGATIVE) Urine Urobilinogen 0.2 (0.2-1.0) EU/dL Ur Leukocyte Esterase Negative (NEGATIVE) 05/20/23 Range/Units 03:00 WBC (4.0-11.0) 10^3/uL RBC (4.20-5.40) 10^6/uL Hgb (12.0-16.0) g/dL Hct (36.0-48.0) % MCV (81.0-99.0) fL MCH (26.7-34.0) pg MCHC (29.9-35.2) g/dL RDW (11.0-15.0) % Plt Count (150-450) 10^3/uL MPV (9.5-13.5) fL Neut % (Auto) (43.0-75.0) % Lymph % (Auto) (20.5-60.0) % [place] % (Auto) (1.7-12.0) % Eos % (Auto) (0.9-7.0) % Baso % (Auto) (0.2-2.0) % Neut # (Auto) (1.4-6.5) 10^3/uL Lymph # (Auto) (1.2-3.8) 10^3/uL [place] # (Auto) (0.3-0.8) 10^3/uL Eos # (Auto) (0.0-0.7) 10^3/uL Baso # (Auto) (0.0-0.1) 10^3/uL Abs Immat Gran (auto) (0.00-0.03) 10^3/uL Imm/Tot Granulo (auto) (0.0-0.5) % PT (9.0-11.6) sec INR VBG pH (7.330-7.430) VBG pCO2 (40.0-52.0) mmHg Sodium (136-145) mmol/L Potassium (3.5-5.1) mmol/L Chloride (98-107) mmol/L Carbon Dioxide (21.0-32.0) mmol/L Anion Gap BUN (7.0-18.0) mg/dL Creatinine (0.55-1.02) mg/dL Est GFR ( Amer) (>=60) Est GFR (Non-Af Amer) (>=60) BUN/Creatinine Ratio Glucose (74-106) mg/dL Lactate 3.6 H* (0.4-2.0) mmol/L Calcium (8.5-10.1) mg/dL Total Bilirubin (0.2-1.0) mg/dL AST (15-37) U/L ALT (14-59) U/L Alkaline Phosphatase (46-116) U/L Troponin I High Sens (4.0-51.3) pg/mL NT-Pro-B Natriuret Pep (<=900.0) pg/mL Total Protein (6.4-8.2) g/dL Albumin (3.4-5.0) g/dL Globulin g/dL Albumin/Globulin Ratio Lipase (73.0-393.0) U/L TSH (0.358-3.740) uIU/mL Urine Color (YELLOW) Urine Clarity (CLEAR) Urine pH (5.0-9.0) Ur Specific [place] (1.005-1.025) Urine Protein (NEG/TRACE) mg/dL Urine Glucose (UA) (NEGATIVE) mg/dL Urine Ketones (NEGATIVE) mg/dL Urine Occult Blood (NEGATIVE) Urine Nitrite (NEGATIVE) Urine Bilirubin (NEGATIVE) Urine Urobilinogen (0.2-1.0) EU/dL Ur Leukocyte Esterase (NEGATIVE) Discharge Plan Discharge Chief Complaint: Abdominal Pain Clinical Impression: Generalized weakness, Nausea, Diarrhea, Fluid overload, Lactic acidosis Patient Disposition: Admitted as Observation Time of Disposition Decision: 04:06 Condition: Fair Prescriptions / Home Meds: No Action metoprolol succinate 100 mg tablet extended release 24 hr 100 mg PO DAILY albuterol sulfate 90 mcg/actuation HFA aerosol inhaler 1 puff INHALATION Q6H PRN (Reason: SOB) gaqeyyjuxy-hpzjqtlpqijwj-macf [Fioricet] 50-300-40 mg capsule 1 cap PO Q4H PRN (Reason: headache) furosemide [Lasix] 40 mg tablet 40 mg PO BID Qty: 60 0RF amiodarone 400 mg tablet 200 mg PO DAILY Qty: 0 0RF fluoxetine 20 mg capsule 40 mg PO DAILY Qty: 0 0RF cefuroxime axetil 500 mg tablet 500 mg PO BID Qty: 10 0RF atorvastatin 80 mg tablet 80 mg PO DAILY trazodone 50 mg tablet 50 mg PO QPM isosorbide mononitrate 30 mg tablet extended release 24 hr 30 mg PO DAILY clonazepam 0.5 mg tablet 0.5 mg PO TID PRN (Reason: anxiety) omeprazole 40 mg capsule,delayed release(DR/EC) 40 mg PO DAILY levothyroxine 75 mcg tablet 75 mcg PO DAILY potassium chloride 20 mEq tablet,ER particles/crystals 20 meq PO DAILY ropinirole 2 mg tablet 2 mg PO TID warfarin 5 mg tablet 5 mg PO DAILY Patient Comments: 1.5 M,W,F, 1 tab other days nitroglycerin 0.4 mg tablet, sublingual 0.4 mg sublingual Q5M PRN (Reason: chest pain) baclofen 5 mg tablet 5 mg PO TID PRN (Reason: muscle spasm) Referrals: Shaikh Rojas MD [Primary Care Provider] - 1 week
[2023-05-19 22:09] LABS: Basophils Absolute Auto 0.1 10^3/uL (0.0-0.1); Basophils Percent Auto 1.4 % (0.2-2.0); Eosinophils Percent Auto 0.2 % (0.9-7.0); Hematocrit 31.4 % (36.0-48.0); Hemoglobin 8.8 g/dL (12.0-16.0); Immature Granulocytes Abs Auto 0.09 10^3/uL (0.00-0.03); Lymphocytes Absolute Auto 2.2 10^3/uL (1.2-3.8); Mean Corpuscular Hemoglobin 20.7 pg (26.7-34.0); Mean Corpuscular Volume 73.9 fL (81.0-99.0); Mean Platelet Volume 10.7 fL (9.5-13.5); Monocytes Absolute Auto 1.2 10^3/uL (0.3-0.8); Monocytes Percent Auto 12.8 % (1.7-12.0); Neutrophils Absolute Auto 5.8 10^3/uL (1.4-6.5); Neutrophils Percent Auto 61.6 % (43.0-75.0); Platelet Count 349 10^3/uL (150-450); Red Blood Count 4.25 10^6/uL (4.20-5.40); Red Cell Distribution Width 20.3 % (11.0-15.0); White Blood Count 9.5 10^3/uL (4.0-11.0)
[2023-05-19] MEDS: 0.9 % SODIUM CHLORIDE 1,000 ML 200 ML IV (22:09)
[2023-05-19 22:10] LABS: PCO2 VBG 25.6 mmHg (40.0-52.0); pH VBG 7.421 (7.330-7.430)
[2023-05-19] MEDS: PROMETHAZINE HCL 25 MG/ML VIAL 12.5 MG IV (22:10)
[2023-05-19 22:23] LABS: INR 1.25; Prothrombin Time 13.1 sec (9.0-11.6)
[2023-05-19 22:25] LABS: Alanine Aminotransferase 38 U/L (14-59); Albumin Globulin Ratio 0.7; Albumin Level 2.8 g/dL (3.4-5.0); Alkaline Phosphatase 310 U/L (46-116); Anion Gap 16.2; Aspartate Amino Transferase 101 U/L (15-37); Bilirubin Total 0.7 mg/dL (0.2-1.0); Carbon Dioxide 18.6 mmol/L (21.0-32.0); Chloride 104 mmol/L (98-107); Estimated GFR (African America 57 (>=60); Estimated GFR (Non-African Ame 47 (>=60); Globulin 3.8 g/dL; Glucose 113 mg/dL (74-106); Potassium 4.8 mmol/L (3.5-5.1); Sodium 134 mmol/L (136-145); Total Protein 6.6 g/dL (6.4-8.2)
[2023-05-19 22:33] LABS: Lactate/Lactic Acid 2.4 mmol/L (0.4-2.0)
[2023-05-19 22:35] LABS: Thyroid Stimulating Hormone 6.375 uIU/mL (0.358-3.740); Troponin I High Sensitivity 11.7 pg/mL (4.0-51.3)
[2023-05-19] MEDS: DIPHENHYDRAMINE HCL 50 MG/ML (1ML) VIAL 12.5 MG IV (22:49)
[2023-05-20] VITALS (23 sets, daily range): BP systolic 94–129; BP diastolic 55–96; PULSE 80–90; RESP 15–36; TEMP 36.7; O2SAT 86–100; BMI 26.4
[2023-05-20 00:18] LABS: Lactate/Lactic Acid 3.2 mmol/L (0.4-2.0)
--- NOTE | 2023-05-20 00:38 | CT_ITS ---
The [address] [address] Patient Name: HORACIO LOMBARDI MRN: [facility]:[id number] date: 1970 Sex: F Assigned Patient Location: ER Current Patient Location: ER Accession/Order Number: [id number] Exam Date: 05/20/2023 01:30 Report Date: 05/20/2023 02:43 At the request of: HAROON MARKER Procedure: CT abdomen pelvis wo con EXAM: CT abdomen pelvis wo con HISTORY: abd pain COMPARISON: Acute abdominal series, 05/19/2023. TECHNIQUE: Nonenhanced CT imaging the abdomen and pelvis was performed with sagittal and coronal reconstructions. FINDINGS: CT ABDOMEN: Mitral valve replacement is noted. Cardiac pacing leads are seen in the right atrium and right ventricle. The heart is mildly enlarged. There are extensive calcifications along the lateral wall of the left ventricle, nonspecific. There is no pericardial effusion. Nonspecific bibasilar patchy ground-glass opacities are seen with increased interstitial markings favoring pneumonitis and/or edema with trace layering bilateral pleural effusions. The liver is enlarged at 20 cm in length, but appears otherwise unremarkable. Cholecystectomy clips are noted. There is no biliary ductal dilatation. The exam is limited by the lack of IV contrast. Solid organ lesions or acute abnormalities could be missed. Allowing for this, the pancreas, spleen, adrenal glands, stomach, small bowel and right kidney are grossly unremarkable. There are left renal cortical cysts measuring up to 2 cm. The left kidney is otherwise unremarkable. Moderate aortic and iliac calcifications are noted without aneurysm. CT PELVIS: There appears to be surgical change for prior appendectomy. Prior hysterectomy is noted. The urinary bladder, pelvic small bowel loops and colon appear within normal limits. Mild edematous change is seen in the abdomen and pelvis with diffuse body wall edema. No loculated fluid, free air or soft tissue gas is seen. Postoperative change for L5-S1 discectomy, laminectomy and posterior body fusion is noted. There are chronic appearing compression fractures involving the superior endplates of T11 and L2. No acute osseous abnormality or suspicious bony lesion is seen. CT/CT abdomen pelvis wo con IMPRESSION: 1. Mild abdominal and pelvic ascites with diffuse body wall edema and trace layering bilateral effusions favoring mild anasarca. 2. Bibasilar pulmonary edema and/or pneumonitis. 3. Dense and a nail calcifications along the lateral wall of the left ventricle are etiology determined but may be related to prior infection or infarct. 4. Hepatomegaly. 5. Prior cholecystectomy, hysterectomy and presumed appendectomy. Electronically authenticated by: DIANE HURST Date: 05/20/2023 02:43
[2023-05-20 00:44] LABS: Bilirubin Urine NEGATIVE (NEGATIVE); Blood Urine TRACE-I (NEGATIVE); Clarity Urine CLEAR (CLEAR); Color Urine LT. YELLOW (YELLOW); Glucose Urine UA NEGATIVE (NEGATIVE); Ketones Urine NEGATIVE (NEGATIVE); Leukocyte Esterase Urine NEGATIVE (NEGATIVE); Nitrite Urine NEGATIVE (NEGATIVE); Protein Urine TRACE mg/dL (NEG/TRACE); Urine Microscopic Indicated NO; Urobilinogen Urine 0.2 EU/dL (0.2-1.0)
[2023-05-20] MEDS: LORAZEPAM 2 MG/ML 1 ML VIAL 1 MG IV ×2 (00:50→04:54)
[2023-05-20 03:41] LABS: Lactate/Lactic Acid 3.6 mmol/L (0.4-2.0)
[2023-05-20] MEDS: FUROSEMIDE 20 MG/2 ML VIAL IVP (04:39)
--- NOTE | 2023-05-20 05:22 | P.PN_ITS ---
Progress Note: Subjective Subjective Interval history: chief complaint: Diarrhea, shortness of breath HPI: 52-year-old female with HFrEF s/p AICD, AFib with pacemaker, mitral valve bioprosthetic replacement on warfarin, CAD, HTN, HDL, chronic pain, CKD, who presents to the hospital with complaints of diarrhea over the past 3 4 days. She has been having about 5 loose stools, abdominal cramps, nausea. She has not been taking her evening dose of Lasix his she was worried about getting dehydrated. He has been developing shortness of breath and orthopnea. She reports her weight has been stable. She denies any fevers or chills but complains of generalized weakness. She was recently hospitalized for hypoxia related to CHF and possible pneumonia completed Ceftin and her diuretics doses were adjusted. Upon arrival to the ER patient is afebrile, normotensive, not requiring oxygen, labs remarkable for elevated lactic acid, HGB 8.2 with microcytosis, bicarb 18, proBNP near 12 K, CXR with pulmonary interstitial edema, CT A/ P suggestive of anasarca. Patient was given both Lasix and IV fluids. hospital Medicine Consulted for admission. home medications: Reconciled in chart past medical history: As above past surgical history mitral valve replacement allergies reviewed as per chart social history: Denies any alcohol tobacco or illicit drug use. Review of systems negative except for HPI Exam Narrative Exam Narrative: general: Sitting up in bed, in mild acute distress, alert and oriented x3 HEENT: Trachea midline, EOMI, normocephalic, atraumatic CVS: Regular rate and paced rhythm, 1+ edema lungs: Diminished breath sounds in bases, mild increased respiratory effort GI: Soft, nontender, no visible masses neuro: No focal deficit Constitutional Vital Signs, click to edit/add: Last Vital Signs Temp 98.2 F 05/19/23 21:44 Pulse 89 05/20/23 03:15 Resp 31 H 05/20/23 03:15 BP 108/63 05/20/23 03:15 Pulse Ox 98 05/20/23 01:47 O2 Del Method Room Air 05/20/23 01:05 Progress Note: Objective Labs Labs: Short CBC 05/19/23 Range/Units 22:00 WBC 9.5 (4.0-11.0) 10^3/uL Hgb 8.8 L (12.0-16.0) g/dL Hct 31.4 L (36.0-48.0) % Plt Count 349 (150-450) 10^3/uL BMP 05/19/23 22:00 Sodium 134 L Potassium 4.8 Chloride 104 Carbon Dioxide 18.6 L BUN 18.0 Creatinine 1.20 H Glucose 113 H Calcium 8.0 L Liver Function 05/19/23 Range/Units 22:00 Total Bilirubin 0.7 (0.2-1.0) mg/dL AST 101 H (15-37) U/L ALT 38 (14-59) U/L Alkaline Phosphatase 310 H (46-116) U/L Albumin 2.8 L (3.4-5.0) g/dL Urine 05/20/23 Range/Units 00:37 Urine Color Lt. yellow (YELLOW) Urine Clarity Clear (CLEAR) Urine pH 6.0 (5.0-9.0) Ur Specific [place] 1.010 (1.005-1.025) Urine Protein Trace (NEG/TRACE) mg/dL Urine Glucose (UA) Negative (NEGATIVE) mg/dL Progress Note: A&P Assessment and Plan (1) Generalized weakness: (2) Diarrhea: (3) Fluid overload: (4) Lactic acidosis: Plan Acute on chronic systolic heart failure likely due to dietary indiscretion and missing home Lasix dose paroxysmal atrial fibrillation cardiac pacemaker, defibrillator mitral valve bioprosthetic replacement acute diarrhea likely due to antibiotics, rule out C diff lactic acidosis, CT abdomen pelvis without any colitis or ischemia chronic kidney disease with metabolic acidosis microcytic anemia, check iron studies hypothyroidism hypercholesterolemia coronary artery disease recent pneumonia completed Ceftin - monitor patient on telemetry - received fluids in the ED, discontinue IV fluids CXR suggests pulmonary interstitial edema, CT abdomen pelvis suggest anasarca - no hypoxia at rest may need oxygen with ambulation - check INR level and and consult pharmacy for warfarin dosing - avoid nephrotoxic agents, renally dose medications, consider adding sodium bicarb tablets - check C diff for diarrhea if negative may utilize Imodium DVT prophylaxis- Coumadin medication reconciliation form completed goals of care-full code discussed with emergency room physician. Discussed with bedside nurse. Patient updated about plan of care, all questions answered to their satisfaction. Disposition -home when medically stable as a provider of this Health evaluation, requested by patient's evaluating physician, at test that I introduced myself to the patient, provided my credentials and determined that telemedicine via real-time 2 a interactive audio and video platform is an appropriate and effective means of providing this service. I reviewed the patient's chart and had a discussion with the member of the patient's treatment team. The patient and I mutually agreed with continuation of this evaluation via telemedicine. The patient consented for the telemedicine evaluation. The virtual encounter was taking place from [place]. The nurse was present during the entire time of the encounter was able to move the stethoscope and appropriate directions. Patient was evaluated at 5:00 a.m.. Telemedicine Attestation Telemedicine Attestation I conducted this encounter from [ [place]] via secure live, [id number] video conference with the patient, located at [facility] with [ nurse team]. Prior to the interview, the risks and benefits of telemedicine were discussed with the patient and verbal consent was obtained.
[2023-05-20] MEDS: ROPINIROLE HCL 1 MG TABLET 2 MG PO (07:46)
[2023-05-20] MEDS: LEVOTHYROXINE SODIUM 75 MCG TABLET PO (07:47)
[2023-05-20] MEDS: FLUOXETINE HCL 20 MG CAPSULE 40 MG PO (09:20)
[2023-05-20] MEDS: FUROSEMIDE 40 MG/4 ML VIAL IVP (09:20)
[2023-05-20] MEDS: ATORVASTATIN CALCIUM 40 MG TABLET 80 MG PO (09:20)
[2023-05-20] MEDS: POTASSIUM CHLORIDE 10 MEQ ER TABLET 20 MEQ PO (09:21)
--- NOTE | 2023-05-20 11:17 | PM.HP ---
H&P: HPI History of Present Illness Chief complaint: Nausea/vomiting and diarrhea Narrative: HPI and Hospital Course: 52 y female presents with 3 days hx of nausea/vomiting and diarrhea. She reports multiple watery bowel movements in a day along with nausea and poor appetite due to nausea. She also had a few episodes of vomiting. Denies abdominal pain and seeing blood in stool or vomit. She stopped taking her lasix to avoid dehydration but noted she is more SOB, along worsening LE edema. She came in last night and was found to have acute on chronic systolic HF, KALLI and was admitted for medical management of her acute illness. This morning - patient reports resolution of diarrhea, and that she was able to tolerate PO diet and ate well. She reports mild SOB which is not unusual and there is no LE edema on exam. Patient feels comfortable and close to her baseline and is agreeable to go home. Patient medically stable for d/c. Admission Diagnosis Acute on chronic systolic HF Nausea/vomiting and diarhea KALLI Lactic acidosis Anemia CAD Afib HLD ANTONINA Hypothyroidism RLS Discharge Diagnosis as above Discharge status stable Review of Systems ROS Status of ROS 10 or more systems reviewed and unremarkable except as noted in history and below PFSH PFS Medical History (Updated 05/20/23 @ 11:25 by Shaikh Crystal MD) Surgical History Family History Grandmother Family history of CHF (congestive heart failure) Family history of cancer Family history of hypertension Father Family history of COPD (chronic obstructive pulmonary disease) Family history of cancer Family history of diabetes mellitus Family history of hypertension Sister Family history of COPD (chronic obstructive pulmonary disease) Mother Family history of cancer Family history of hypertension Family history of myocardial infarction Family history of stroke Brother Family history of cancer Grandfather Family history of cancer Social History (Updated 05/20/23 @ 11:23 by Shaikh Crystal MD) Within the past year, how often did you have a drink containing alcohol: never Score interpretation: A score less than 3 is consistent with normal alcohol consumption. Smoking status: Former smoker Non-prescribed substance use: denies use Meds Home Medications and Allergies Home Medications Medication Instructions Recorded Confirmed Type atorvastatin 80 mg tablet 80 mg PO DAILY 03/18/23 05/20/23 History baclofen 5 mg tablet 5 mg PO TID PRN back spasm or pain 03/18/23 05/20/23 History clonazepam 0.5 mg tablet 0.5 mg PO TID PRN anxiety 03/18/23 05/20/23 History isosorbide mononitrate 30 mg 30 mg PO DAILY 03/18/23 05/20/23 History tablet,extended release 24 hr levothyroxine 75 mcg tablet 75 mcg PO DAILY 03/18/23 05/20/23 History nitroglycerin 0.4 mg sublingual 0.4 mg sublingual Q5M PRN chest 03/18/23 05/20/23 History tablet pain omeprazole 40 mg capsule,delayed 40 mg PO DAILY 03/18/23 05/20/23 History release potassium chloride 20 mEq 20 meq PO DAILY 03/18/23 05/20/23 History tablet,extended release(part/cryst) ropinirole 2 mg tablet 2 mg PO TID 03/18/23 05/20/23 History trazodone 50 mg tablet 50 mg PO QPM 03/18/23 05/20/23 History warfarin 5 mg tablet 5 mg PO DAILY 03/18/23 05/20/23 History albuterol sulfate 90 mcg/actuation 1 puff inhalation Q6H PRN SOB 05/07/23 05/20/23 History aerosol inhaler ribblmtabb-xrqnmcdkomvhp-ohxrghfm 1 cap PO Q4H PRN headache 05/07/23 05/20/23 History 50 mg-300 mg-40 mg capsule (Fioricet) metoprolol succinate 100 mg 100 mg PO DAILY 05/07/23 05/20/23 History tablet,extended release 24 hr fluoxetine 20 mg capsule 40 mg PO DAILY #0 caps 05/08/23 05/20/23 Rx furosemide 40 mg tablet (Lasix) 40 mg PO BID #60 tabs 05/08/23 05/20/23 Rx amiodarone 400 mg tablet 400 mg PO DAILY 05/20/23 05/20/23 History Allergies Allergy/AdvReac Type Severity Reaction Status Date / Time erythromycin base Allergy Unknown Verified 05/06/23 22:23 ondansetron [From Zofran] AdvReac tachycardia Verified 05/20/23 00:11 Exam Constitutional Vital Signs, click to edit/add: Last Vital Signs Temp 98.1 F 05/20/23 06:15 Pulse 87 05/20/23 09:25 Resp 30 H 05/20/23 06:15 BP 94/67 05/20/23 09:25 Pulse Ox 100 05/20/23 10:36 O2 Del Method Room Air 05/20/23 10:36 Documenting provider has reviewed patient's vital signs: yes Common normals: no apparent distress and oriented x3 General appearance: cooperative HENMT Common normals: normocephalic and head/scalp atraumatic Head and scalp: normocephalic and atraumatic Eye Common normals: conjunctivae normal and no scleral icterus Conjunctiva: conjunctiva(e) normal Respiratory Common normals: normal respiratory effort and clear to auscultation bilaterally Effort & inspection: able to speak in complete sentences Auscultation: clear to auscultation bilaterally Cardio Common normals: regular rate, S1 normal heart sound and S2 normal heart sound Rate: regular rate Heart sounds: S1 normal and S2 normal GI Common normals: Normal to inspection, nondistended, normoactive bowel sounds present, soft to palpation, non-tender and no hepatosplenomegaly Palpation: soft and no hepatosplenomegaly Extremity Common normals: no clubbing, cyanosis or edema Neuro Common normals: oriented x3, moves all extremities and no focal motor deficits Psych Common normals: mental status grossly normal, denies hallucinations, denies homicidal ideation and denies suicidal ideation Results Labs Labs: Short CBC 05/19/23 Range/Units 22:00 WBC 9.5 (4.0-11.0) 10^3/uL Hgb 8.8 L (12.0-16.0) g/dL Hct 31.4 L (36.0-48.0) % Plt Count 349 (150-450) 10^3/uL BMP 05/19/23 22:00 Sodium 134 L Potassium 4.8 Chloride 104 Carbon Dioxide 18.6 L BUN 18.0 Creatinine 1.20 H Glucose 113 H Calcium 8.0 L Liver Function 05/19/23 Range/Units 22:00 Total Bilirubin 0.7 (0.2-1.0) mg/dL AST 101 H (15-37) U/L ALT 38 (14-59) U/L Alkaline Phosphatase 310 H (46-116) U/L Albumin 2.8 L (3.4-5.0) g/dL Urine 05/20/23 Range/Units 00:37 Urine Color Lt. yellow (YELLOW) Urine Clarity Clear (CLEAR) Urine pH 6.0 (5.0-9.0) Ur Specific [place] 1.010 (1.005-1.025) Urine Protein Trace (NEG/TRACE) mg/dL Urine Glucose (UA) Negative (NEGATIVE) mg/dL ABG ABG results: 05/19/23 22:00 VBG pH 7.421 VBG pCO2 25.6 L Assessment and Plan Assessment and Plan (1) Acute on chronic systolic (congestive) heart failure: Assessment and Plan: More or less euvolemic on exam today. Exacerbated as patient was not using her lasix. Received IV lasix overnight and in am. Good UO. No LE edema and no SOB. (2) Nausea and vomiting: Assessment and Plan: Resolved. Patient suspects her GI symptoms were a result of Abx use that was prescribed for Pneumonia. (3) KALLI (acute kidney injury): Assessment and Plan: Monitor as outpatient. likely due to N/V and acute on chronic systolic HF (4) Diarrhea: Assessment and Plan: Resolved. Likely abx induced. Unable to check for stool sample for C diff as diarrhea is resolved Qualifiers: Diarrhea type: unspecified type Qualified Code(s): R19.7 - Diarrhea, unspecified (5) Lactic acidosis: Assessment and Plan: due to combination of acute on chronic systolic HF, nausea, vomiting. (6) CAD (coronary artery disease): Assessment and Plan: Stable. C/w ASA, statin and Toprol (7) ANTONINA (generalized anxiety disorder): Assessment and Plan: On Prozac and Klonopin. (8) Hyperlipidemia: Assessment and Plan: C/w statin (9) Hypertension: Assessment and Plan: C/w home meds (10) Hypothyroid: Assessment and Plan: c/w levothyroxine
--- NOTE | 2023-05-20 11:45 | CM.NOTE ---
Rounds made with ekaterina Rubio for discharge to home today. No discharge needs identified.
--- NOTE | 2023-05-20 12:07 | CM.NOTE ---
Medicare Outpatient Observation Notice discussed with pt, pt verbalizes understanding and signed paper. Original given to pt and copy placed on pt's chart.
--- NOTE | 2023-05-21 13:43 | CM.DCFOLLOWU ---
No answer- 1st attempt
== END 2023-05-20 13:29 | disposition home or self-care (01) ==
LOC: ER 05-20 05:06 → MS 05-20 05:08
PROVIDERS: Physician Assistant; Admitting Provider Internal Medicine; Emergency Provider Emergency Medicine; PCP Internal Medicine; Visit Provider Internal Medicine
DX: I50.23 Acute on chronic systolic (congestive) heart failure (principal); R11.2 Nausea with vomiting, unspecified; R19.7 Diarrhea, unspecified; N17.9 Acute kidney failure, unspecified; E87.20 Acidosis, unspecified; I25.10 Atherosclerotic heart disease of native coronary artery without angina pectoris; I48.0 Paroxysmal atrial fibrillation; E78.00 Pure hypercholesterolemia, unspecified; D50.9 Iron deficiency anemia, unspecified; F41.1 Generalized anxiety disorder; E03.9 Hypothyroidism, unspecified; G25.81 Restless legs syndrome; N18.9 Chronic kidney disease, unspecified; Z79.899 Other long term (current) drug therapy; Z79.890 Hormone replacement therapy; T50.1X6A Underdosing of loop [high-ceiling] diuretics, initial encounter; G89.29 Other chronic pain; Z20.822 Contact with and (suspected) exposure to COVID-19; Z91.128 Patient's intentional underdosing of medication regimen for other reason; Z95.810 Presence of automatic (implantable) cardiac defibrillator; Z79.01 Long term (current) use of anticoagulants; Z87.891 Personal history of nicotine dependence; Z95.2 Presence of prosthetic heart valve; Z87.01 Personal history of pneumonia (recurrent)
CPT/HCPCS: 36415; 74022; 74176; 80053; 81003; 82800; 83605; 83690; 83880; 84443; 84484; 85025; 85610; 87493; 93005; 94761; 96361; 96374; 96375; 96376; 97165; 99285; G0378; Q3014

== ENCOUNTER 2023-05-31 01:27 | Outpatient (RCR) | payer MEDICARE, MEDICAID, SELFPAY | END 2023-06-29 17:11 | disposition home or self-care (01) | LOC: MM 01:27 | PROVIDERS: PCP Internal Medicine; Visit Provider Internal Medicine | DX: Z51.81 Encounter for therapeutic drug level monitoring (principal); Z79.01 Long term (current) use of anticoagulants; I48.0 Paroxysmal atrial fibrillation ==

== ENCOUNTER 2023-05-31 11:35 | Emergency (ER) | payer MEDICARE, MEDICAID, SELFPAY ==
[2023-05-31 11:40] VITALS: BP 114/76; PULSE 80; RESP 18; TEMP 36.7; O2SAT 100; BMI 27.3
--- NOTE | 2023-05-31 12:04 | ED_ITS ---
HPI - General Adult General Chief complaint: Skin/Abscess/Foreign Body Stated complaint: SPIDER BITE ON BACK OF HEAD/NAPE OF NECK Time Seen by Provider: 05/31/23 11:44 Source: patient Mode of arrival: ambulance Limitations: no limitations History of Present Illness HPI narrative: Patient is a 52-year-old female who is presenting to the Emergency Room today with chief complaint of acute on chronic headache/neck pain and also a scab at the base of the back of her head at the occipital area. This is been there for 2-3 weeks. Patient states that she's been itching and picking at it, he is concerned about possible infection. Patient does not recall any type of bite or injury, but she is telling EMS staff and nursing staff that she might of been bit by a spider. Patient states she does not drive, so she called EMS to bring her to the Emergency Room. Patient has a history of headaches and migraines. Patient's headache was not the worse headache of her life, not sudden onset, not thunderclap in nature. Patient has no meningeal signs or symptoms. No fever or chills. Mild nausea no vomiting. No chest pain or shortness of breath.Patient has no radiculopathy or paresthesias into her upper extremities. Patient has no acute fall, no acute injury. Not sudden onset. Patient states headache and neck pain were developing yesterday and today, and she tells me that is the main reason why she called 911 is because her headache and neck pain, not because of the scab/wound to the back of her head despite telling EMS staff and nursing staff that she was concerned about the wound and mentioned nothing about headache or neck pain besides me. Patient has no vision or hearing changes. . All systems are negative except as noted/marked. All systems reviewed and otherwise negative. . Nurses note and vital signs reviewed and patient is not hypoxic. General: The patient appears well and in no apparent distress. Patient is resting comfortably on cart. Patient is not toxic, lethargic, or listless Skin: Warm, dry, no pallor noted. There is no rash noted. No petechiae, purpura. Patient has a 1 x 1 cm eschar/scab to an area where patient has been picking her scab below the occiput, midline. She has no palpable abscess, no signs of abscess or sebaceous cyst. Patient has no signs of cellulitis or secondary signs of infection or occipital area of the scalp, no signs of any type of necrosis, or any other secondary signs of infection. No signs of foreign body, no ticks noted, no acute findings besides a small area of irritation in a small scab or patient continues to take it off. No active bleeding at this time. Head: Normocephalic, atraumatic; Patient has mild to moderate tenderness to palpation to bilateral paracervical soft tissue. Patient has no meningeal signs or symptoms. Patient has no midline cervical tenderness palpation. Eye: Normal conjunctiva, no drainage, EOMI. PERRL. 3/2 Equal, bilateral. Ears, Nose, Mouth, and Throat: oral mucosa is moist. Nares patent. Mouth without vesicles. Cardiovascular: Regular Rate and Rhythm, no murmur, gallop, rub. Respiratory: Patient is in no distress, no accessory muscle use, lungs are clear to auscultation, no wheezing, rales or rhonchi Back: non-tender, no CVA tenderness bilaterally to percussion. No CT LS midline pain. Patient has paracervical soft tissue tenderness palpation, see above documentation GI: soft, no tenderness. Musculoskeletal: Patient has full range of motion of all of the extremities, no motor, sensory, or focal neurological deficits Neurological: A&O x3, normal speech Psychiatric: Cooperative Related Data Home Medications Medication Instructions Recorded Confirmed atorvastatin 80 mg tablet 80 mg PO DAILY 03/18/23 05/31/23 baclofen 5 mg tablet 5 mg PO TID PRN back spasm or pain 03/18/23 05/31/23 clonazepam 0.5 mg tablet 0.5 mg PO TID PRN anxiety 03/18/23 05/31/23 isosorbide mononitrate 30 mg 30 mg PO DAILY 03/18/23 05/31/23 tablet,extended release 24 hr levothyroxine 75 mcg tablet 75 mcg PO DAILY 03/18/23 05/31/23 nitroglycerin 0.4 mg sublingual 0.4 mg sublingual Q5M PRN chest 03/18/23 05/31/23 tablet pain omeprazole 40 mg capsule,delayed 40 mg PO DAILY 03/18/23 05/31/23 release potassium chloride 20 mEq 20 meq PO DAILY 03/18/23 05/31/23 tablet,extended release(part/cryst) ropinirole 2 mg tablet 2 mg PO TID 03/18/23 05/31/23 trazodone 50 mg tablet 50 mg PO QPM 03/18/23 05/31/23 warfarin 5 mg tablet 5 mg PO DAILY 03/18/23 05/31/23 albuterol sulfate 90 mcg/actuation 1 puff inhalation Q6H PRN SOB 05/07/23 05/31/23 aerosol inhaler dmpavoaxxe-jrdxiaeuqucnm-iptbspcb 1 cap PO Q4H PRN headache 05/07/23 05/31/23 50 mg-300 mg-40 mg capsule (Fioricet) metoprolol succinate 100 mg 100 mg PO DAILY 05/07/23 05/31/23 tablet,extended release 24 hr Previous Rx's Medication Instructions Recorded fluoxetine 20 mg capsule 40 mg PO DAILY #0 caps 05/08/23 furosemide 40 mg tablet (Lasix) 40 mg PO BID #60 tabs 05/08/23 amiodarone 200 mg tablet (Pacerone) 200 mg PO QD #30 tabs 05/20/23 methocarbamol 500 mg tablet 500 mg PO Q8H PRN muscle pain #10 05/31/23 tabs Allergies Allergy/AdvReac Type Severity Reaction Status Date / Time erythromycin base Allergy Unknown Verified 05/31/23 11:45 ondansetron [From Zofran] AdvReac tachycardia Verified 05/31/23 11:45 PFSH PFSH Medical History (Updated 05/31/23 @ 12:59 by Christopher Farr MD) Acute torticollis ?M43.6 - Torticollis (ICD-10) CAD (coronary artery disease) ?I25.10 - Atherosclerotic heart disease of [place] coronary artery without angina pectoris (ICD-10) CHF (congestive heart failure) ?I50.9 - Heart failure, unspecified (ICD-10) Chronic HFrEF (heart failure with reduced ejection fraction) ?I50.22 - Chronic systolic (congestive) heart failure (ICD-10) Closed head injury ?S09.90XA - Unspecified injury of head, initial encounter (ICD-10) Fall from chair ?W07.XXXA - Fall from chair, initial encounter (ICD-10) Fluid overload ?E87.70 - Fluid overload, unspecified (ICD-10) Fracture of head of humerus with routine healing ?S42.293D - Other displaced fracture of upper end of unspecified humerus, subsequent encounter for fracture with routine healing (ICD-10) ANTONINA (generalized anxiety disorder) ?F41.1 - Generalized anxiety disorder (ICD-10) Generalized weakness ?R53.1 - Weakness (ICD-10) Hyperlipidemia ?E78.5 - Hyperlipidemia, unspecified (ICD-10) Hypertension ?I10 - Essential (primary) hypertension (ICD-10) Hypothyroid ?E03.9 - Hypothyroidism, unspecified (ICD-10) Lactic acidosis ?E87.20 - Acidosis, unspecified (ICD-10) Multifocal pneumonia ?J18.9 - Pneumonia, unspecified organism (ICD-10) Myocardial infarct, old ?I25.2 - Old myocardial infarction (ICD-10) Nausea ?R11.0 - Nausea (ICD-10) Pacemaker ?Z95.0 - Presence of cardiac pacemaker (ICD-10) Paroxysmal atrial fibrillation ?I48.0 - Paroxysmal atrial fibrillation (ICD-10) Rheumatic fever ?I00 - Rheumatic fever without heart involvement (ICD-10) RLS (restless legs syndrome) ?G25.81 - Restless legs syndrome (ICD-10) Surgical History History of hysterectomy ?Z90.710 - Acquired absence of both cervix and uterus (ICD-10) Mitral valve replaced ?Z95.2 - Presence of prosthetic heart valve (ICD-10) Family History Grandmother Family history of CHF (congestive heart failure) Family history of cancer Family history of hypertension Father Family history of COPD (chronic obstructive pulmonary disease) Family history of cancer Family history of diabetes mellitus Family history of hypertension Sister Family history of COPD (chronic obstructive pulmonary disease) Mother Family history of cancer Family history of hypertension Family history of myocardial infarction Family history of stroke Brother Family history of cancer Grandfather Family history of cancer Social History (Updated 05/20/23 @ 11:23 by Shaikh Crystal MD) Within the past year, how often did you have a drink containing alcohol: never Score interpretation: A score less than 3 is consistent with normal alcohol consumption. Smoking status: Former smoker Non-prescribed substance use: denies use Exam Constitutional Vital Signs, click to edit/add: Last Vital Signs Temp 98.1 F 05/31/23 11:40 Pulse 80 05/31/23 12:39 Resp 18 05/31/23 12:39 BP 116/50 05/31/23 12:39 Pulse Ox 100 05/31/23 12:39 O2 Del Method Room Air 05/31/23 11:40 Course Vital Signs Vital signs: Vital Signs Temperature 98.1 F 05/31/23 11:40 Pulse Rate 80 05/31/23 11:40 Respiratory Rate 18 05/31/23 11:40 Blood Pressure 114/76 05/31/23 11:40 Pulse Oximetry 100 05/31/23 11:40 Oxygen Delivery Method Room Air 05/31/23 11:40 Temperature 98.1 F 05/31/23 11:40 Pulse Rate 80 05/31/23 12:39 Respiratory Rate 18 05/31/23 12:39 Blood Pressure 116/50 05/31/23 12:39 Pulse Oximetry 100 05/31/23 12:39 Oxygen Delivery Method Room Air 05/31/23 11:40 Medical Decision Making MDM Narrative Medical decision making narrative: Patient headache and neck pain has safely improved with IV medications given. Patient is given Decadron to help prevent rebound headache, she is not diabetic. Education was shown on ice, stretching at bedside. Patient states she is ALLERGIC to Neosporin. Patient was told that she can use bacitracin 3-4 times a day to the areas to help it heal the area of the scab at the base the occiput. No 2nd or signs of infection. No meningeal signs or symptoms. Patient has good range of motion of cervical spine at discharge with minimal pain. Patient was asking for a Klonopin at discharge, states that she normally takes at home for anxiety and restless leg syndrome. Patient is told to take her medication when she goes home, known medication to her medication now of Klonopin. Patient is given a prescription for Robaxin. Education ice and stretching. No questions at discharge Discharge Plan Discharge Chief Complaint: Skin/Abscess/Foreign Body Clinical Impression: Tension headache, Headache, Chronic wound of head Patient Disposition: Home, Self-Care Condition: Good Prescriptions / Home Meds: New methocarbamol 500 mg tablet 500 mg PO Q8H PRN (Reason: muscle pain) Qty: 10 0RF No Action metoprolol succinate 100 mg tablet extended release 24 hr 100 mg PO DAILY albuterol sulfate 90 mcg/actuation HFA aerosol inhaler 1 puff INHALATION Q6H PRN (Reason: SOB) nyenxypppq-cvidzquwefllj-hfpw [Fioricet] 50-300-40 mg capsule 1 cap PO Q4H PRN (Reason: headache) furosemide [Lasix] 40 mg tablet 40 mg PO BID Qty: 60 0RF fluoxetine 20 mg capsule 40 mg PO DAILY Qty: 0 0RF atorvastatin 80 mg tablet 80 mg PO DAILY trazodone 50 mg tablet 50 mg PO QPM isosorbide mononitrate 30 mg tablet extended release 24 hr 30 mg PO DAILY clonazepam 0.5 mg tablet 0.5 mg PO TID PRN (Reason: anxiety) omeprazole 40 mg capsule,delayed release(DR/EC) 40 mg PO DAILY levothyroxine 75 mcg tablet 75 mcg PO DAILY potassium chloride 20 mEq tablet,ER particles/crystals 20 meq PO DAILY ropinirole 2 mg tablet 2 mg PO TID warfarin 5 mg tablet 5 mg PO DAILY Patient Comments: 1.5 M,W,F, 1 tab other days nitroglycerin 0.4 mg tablet, sublingual 0.4 mg sublingual Q5M PRN (Reason: chest pain) baclofen 5 mg tablet 5 mg PO TID PRN (Reason: back spasm or pain) amiodarone [Pacerone] 200 mg Tablet 200 mg PO QD Qty: 30 0RF Instructions: Wound Infection (ED), Tension Headache (ED), Acute Headache (ED), General Headache (ED) Additional Instructions: Ice 20 minutes on, 20 minutes off. Cervical stretching neck exercises 3 times a day for the next week. Use muscle relaxer Robaxin as needed to help with muscle pain; ice and stretching her most important. Stand Alone Forms: Portal Instructions Referrals: Shaikh Rojas MD [Primary Care Provider] - 1 week
[2023-05-31] MEDS: KETOROLAC TROMETHAMINE 30 MG/ML VIAL 15 MG IVP (12:19)
[2023-05-31] MEDS: 0.9 % SODIUM CHLORIDE 1,000 ML 999 ML IV (12:19)
[2023-05-31] MEDS: ORPHENADRINE 60 MG/ 2 ML VIAL IV (12:19)
[2023-05-31] MEDS: BACITRACIN 0.9 GM PACKET 1 PACKET TOPICAL (12:19)
[2023-05-31] MEDS: DEXAMETHASONE SODIUM PHOSPHATE 10 MG/ML VIAL IV (12:31)
[2023-05-31 12:39] VITALS: BP 116/50; PULSE 80; RESP 18; O2SAT 100
== END 2023-05-31 13:32 | disposition home or self-care (01) ==
PROVIDERS: Emergency Provider Emergency Medicine; PCP Internal Medicine
DX: G44.209 Tension-type headache, unspecified, not intractable (principal); S01.90XA Unspecified open wound of unspecified part of head, initial encounter; G25.81 Restless legs syndrome; I25.10 Atherosclerotic heart disease of native coronary artery without angina pectoris; I48.0 Paroxysmal atrial fibrillation; I50.22 Chronic systolic (congestive) heart failure; F41.1 Generalized anxiety disorder; E78.5 Hyperlipidemia, unspecified; I11.0 Hypertensive heart disease with heart failure; E03.9 Hypothyroidism, unspecified; Z95.0 Presence of cardiac pacemaker; I25.2 Old myocardial infarction; Z87.01 Personal history of pneumonia (recurrent); Z87.891 Personal history of nicotine dependence; Z79.899 Other long term (current) drug therapy; Z79.01 Long term (current) use of anticoagulants
CPT/HCPCS: 96374; 96375; 99284; J1100

== ENCOUNTER 2023-06-04 18:24 | Emergency (ER) | payer MEDICARE, MEDICAID, SELFPAY ==
[2023-06-04 18:34] VITALS: BP 102/69; PULSE 81; RESP 18; TEMP 36.8; O2SAT 100; BMI 28.3
--- NOTE | 2023-06-04 19:04 | PC.NURSE ---
Has abscess at nap of neck. Raised with scab in center. Placed on antibiotic's yesterday.
--- NOTE | 2023-06-04 19:52 | PC.NURSE ---
PA in and I&D area.
--- NOTE | 2023-06-04 19:55 | ED.GENADUL1 ---
HPI - General Adult General Chief complaint: Skin/Abscess/Foreign Body Stated complaint: cyst Time Seen by Provider: 06/04/23 18:52 Source: patient Mode of arrival: walk-in History of Present Illness HPI narrative: 52-year-old female presents with a chief complaint of an abscess to the back of her scalp. She was seen here several days ago and discharged home with muscle relaxants for head pain. At that time she had a scalp wound but no identifiable abscess per note. Patient has a 1 x 2 cm area nodule of swelling consistent with abscess. Seen by her primary care physician and started on Bactrim. He told her to come to the emergency room to have it drained. Related Data Home Medications Medication Instructions Recorded Confirmed atorvastatin 80 mg tablet 80 mg PO DAILY 03/18/23 05/31/23 baclofen 5 mg tablet 5 mg PO TID PRN back spasm or pain 03/18/23 05/31/23 clonazepam 0.5 mg tablet 0.5 mg PO TID PRN anxiety 03/18/23 05/31/23 isosorbide mononitrate 30 mg 30 mg PO DAILY 03/18/23 05/31/23 tablet,extended release 24 hr levothyroxine 75 mcg tablet 75 mcg PO DAILY 03/18/23 05/31/23 nitroglycerin 0.4 mg sublingual 0.4 mg sublingual Q5M PRN chest 03/18/23 05/31/23 tablet pain omeprazole 40 mg capsule,delayed 40 mg PO DAILY 03/18/23 05/31/23 release potassium chloride 20 mEq 20 meq PO DAILY 03/18/23 05/31/23 tablet,extended release(part/cryst) ropinirole 2 mg tablet 2 mg PO TID 03/18/23 05/31/23 trazodone 50 mg tablet 50 mg PO QPM 03/18/23 05/31/23 warfarin 5 mg tablet 5 mg PO DAILY 03/18/23 05/31/23 albuterol sulfate 90 mcg/actuation 1 puff inhalation Q6H PRN SOB 05/07/23 05/31/23 aerosol inhaler enbdsuisms-coahvnrusittj-jhsxlgih 1 cap PO Q4H PRN headache 05/07/23 05/31/23 50 mg-300 mg-40 mg capsule (Fioricet) metoprolol succinate 100 mg 100 mg PO DAILY 05/07/23 05/31/23 tablet,extended release 24 hr Previous Rx's Medication Instructions Recorded fluoxetine 20 mg capsule 40 mg PO DAILY #0 caps 05/08/23 furosemide 40 mg tablet (Lasix) 40 mg PO BID #60 tabs 05/08/23 amiodarone 200 mg tablet (Pacerone) 200 mg PO QD #30 tabs 05/20/23 methocarbamol 500 mg tablet 500 mg PO Q8H PRN muscle pain #10 05/31/23 tabs cephalexin 500 mg capsule 500 mg PO BID 10 days #20 caps 06/04/23 Allergies Allergy/AdvReac Type Severity Reaction Status Date / Time erythromycin base Allergy Unknown Verified 05/31/23 11:45 ondansetron [From Zofran] AdvReac tachycardia Verified 05/31/23 11:45 Review of Systems ROS Narrative All Systems are negative except as noted/marked.All systems reviewed and otherwise negative [facility] Medical History (Updated 06/04/23 @ 20:00 by Yessi Mccoy) Acute torticollis ?M43.6 - Torticollis (ICD-10) CAD (coronary artery disease) ?I25.10 - Atherosclerotic heart disease of [place] coronary artery without angina pectoris (ICD-10) CHF (congestive heart failure) ?I50.9 - Heart failure, unspecified (ICD-10) Chronic HFrEF (heart failure with reduced ejection fraction) ?I50.22 - Chronic systolic (congestive) heart failure (ICD-10) Closed head injury ?S09.90XA - Unspecified injury of head, initial encounter (ICD-10) Fall from chair ?W07.XXXA - Fall from chair, initial encounter (ICD-10) Fluid overload ?E87.70 - Fluid overload, unspecified (ICD-10) Fracture of head of humerus with routine healing ?S42.293D - Other displaced fracture of upper end of unspecified humerus, subsequent encounter for fracture with routine healing (ICD-10) ANTONINA (generalized anxiety disorder) ?F41.1 - Generalized anxiety disorder (ICD-10) Generalized weakness ?R53.1 - Weakness (ICD-10) Hyperlipidemia ?E78.5 - Hyperlipidemia, unspecified (ICD-10) Hypertension ?I10 - Essential (primary) hypertension (ICD-10) Hypothyroid ?E03.9 - Hypothyroidism, unspecified (ICD-10) Lactic acidosis ?E87.20 - Acidosis, unspecified (ICD-10) Multifocal pneumonia ?J18.9 - Pneumonia, unspecified organism (ICD-10) Myocardial infarct, old ?I25.2 - Old myocardial infarction (ICD-10) Nausea ?R11.0 - Nausea (ICD-10) Pacemaker ?Z95.0 - Presence of cardiac pacemaker (ICD-10) Paroxysmal atrial fibrillation ?I48.0 - Paroxysmal atrial fibrillation (ICD-10) Rheumatic fever ?I00 - Rheumatic fever without heart involvement (ICD-10) RLS (restless legs syndrome) ?G25.81 - Restless legs syndrome (ICD-10) Surgical History History of hysterectomy ?Z90.710 - Acquired absence of both cervix and uterus (ICD-10) Mitral valve replaced ?Z95.2 - Presence of prosthetic heart valve (ICD-10) Family History Grandmother Family history of CHF (congestive heart failure) Family history of cancer Family history of hypertension Father Family history of COPD (chronic obstructive pulmonary disease) Family history of cancer Family history of diabetes mellitus Family history of hypertension Sister Family history of COPD (chronic obstructive pulmonary disease) Mother Family history of cancer Family history of hypertension Family history of myocardial infarction Family history of stroke Brother Family history of cancer Grandfather Family history of cancer Social History (Updated 05/20/23 @ 11:23 by Shaikh Crystal MD) Within the past year, how often did you have a drink containing alcohol: never Score interpretation: A score less than 3 is consistent with normal alcohol consumption. Smoking status: Current every day smoker Non-prescribed substance use: denies use Exam Narrative Exam Narrative: Nurses note and vital signs reviewed and patient is not hypoxic. General: The patient appears well and in no apparent distress. Patient is resting comfortably on cart. Skin: Warm, dry, no pallor noted. There is no rash noted. Head: Normocephalic, 1 x 2 cm area of fluctuance, swelling consistent with abscess to the occipital region of her scalp posteriorly Eye: Normal conjunctiva, no drainage, EOMI. PERRL Ears, Nose, Mouth, and Throat: oral mucosa is moist. Nares patent. Mouth without vesicles. Ear canals patent. Tm's without Erythema Cardiovascular: Regular Rate and Rhythm Musculoskeletal: The patient has no evidence of calf tenderness, no pitting edema, symmetrical pulses noted bilaterally Neurological: A&O x4, normal speech Psychiatric: Cooperative Constitutional Vital Signs, click to edit/add: Last Vital Signs Temp 98.2 F 06/04/23 18:34 Pulse 81 06/04/23 18:34 Resp 18 06/04/23 18:34 BP 102/69 06/04/23 18:34 Pulse Ox 100 06/04/23 18:34 O2 Del Method Room Air 06/04/23 18:34 Course Vital Signs Vital signs: Vital Signs Temperature 98.2 F 06/04/23 18:34 Pulse Rate 81 06/04/23 18:34 Respiratory Rate 18 06/04/23 18:34 Blood Pressure 102/69 06/04/23 18:34 Pulse Oximetry 100 06/04/23 18:34 Oxygen Delivery Method Room Air 06/04/23 18:34 Temperature 98.2 F 06/04/23 18:34 Pulse Rate 81 06/04/23 18:34 Respiratory Rate 18 06/04/23 18:34 Blood Pressure 102/69 06/04/23 18:34 Pulse Oximetry 100 06/04/23 18:34 Oxygen Delivery Method Room Air 06/04/23 18:34 Medical Decision Making MDM Narrative Medical decision making narrative: She presented here with an abscess to the posterior occipital region of her scalp. Area was cleaned with Betasept and saline. One percent lidocaine solution injected locally ?2 mL. Eleven blade was used to incise an open the wound. Copious amount of purulent drainage was expressed from the area. Quarter-inch packing was then placed.She is currently taking Bactrim. We will add Keflex. She was discharged home with abscess instructions. She will have quarter-inch packing in the wound was told to follow-up primary care physicians for removal on Wednesday. Patient agrees with plan of care Differential Diagnosis Differential Diagnosis: Abscess, scalp wound Medical Records Medical records reviewed: Yes I reviewed the patient's medical records Discharge Plan Discharge Chief Complaint: Skin/Abscess/Foreign Body Clinical Impression: Abscess of skin or subcutaneous tissue Patient Disposition: Home, Self-Care Time of Disposition Decision: 19:59 Condition: Good Mode of Transportation: Private Vehicle Prescriptions / Home Meds: New cephalexin 500 mg capsule 500 mg PO BID 10 Days Qty: 20 0RF No Action metoprolol succinate 100 mg tablet extended release 24 hr 100 mg PO DAILY albuterol sulfate 90 mcg/actuation HFA aerosol inhaler 1 puff INHALATION Q6H PRN (Reason: SOB) tyzslwqpin-wspnjytuljahi-zfdc [Fioricet] 50-300-40 mg capsule 1 cap PO Q4H PRN (Reason: headache) furosemide [Lasix] 40 mg tablet 40 mg PO BID Qty: 60 0RF fluoxetine 20 mg capsule 40 mg PO DAILY Qty: 0 0RF methocarbamol 500 mg tablet 500 mg PO Q8H PRN (Reason: muscle pain) Qty: 10 0RF atorvastatin 80 mg tablet 80 mg PO DAILY trazodone 50 mg tablet 50 mg PO QPM isosorbide mononitrate 30 mg tablet extended release 24 hr 30 mg PO DAILY clonazepam 0.5 mg tablet 0.5 mg PO TID PRN (Reason: anxiety) omeprazole 40 mg capsule,delayed release(DR/EC) 40 mg PO DAILY levothyroxine 75 mcg tablet 75 mcg PO DAILY potassium chloride 20 mEq tablet,ER particles/crystals 20 meq PO DAILY ropinirole 2 mg tablet 2 mg PO TID warfarin 5 mg tablet 5 mg PO DAILY Patient Comments: 1.5 M,W,F, 1 tab other days nitroglycerin 0.4 mg tablet, sublingual 0.4 mg sublingual Q5M PRN (Reason: chest pain) baclofen 5 mg tablet 5 mg PO TID PRN (Reason: back spasm or pain) amiodarone [Pacerone] 200 mg Tablet 200 mg PO QD Qty: 30 0RF Instructions: Abscess Incision and Drainage (DC) Stand Alone Forms: Portal Instructions Referrals: Shaikh Rojas MD [Primary Care Provider] - 1 week Discharge Date/Time: 06/04/23 20:41
[2023-06-04] MEDS: LIDOCAINE HCL 1% 100 MG/10 ML MDV INJ (20:04)
[2023-06-04] MEDS: CEPHALEXIN 500 MG CAPSULE PO (20:36)
== END 2023-06-04 20:41 | disposition home or self-care (01) ==
PROVIDERS: Emergency Provider Emergency Medicine; PCP Internal Medicine
DX: L02.811 Cutaneous abscess of head [any part, except face] (principal); I25.10 Atherosclerotic heart disease of native coronary artery without angina pectoris; I12.9 Hypertensive chronic kidney disease with stage 1 through stage 4 chronic kidney disease, or unspecified chronic kidney disease; I50.22 Chronic systolic (congestive) heart failure; F41.1 Generalized anxiety disorder; E78.5 Hyperlipidemia, unspecified; E03.9 Hypothyroidism, unspecified; I25.2 Old myocardial infarction; Z87.01 Personal history of pneumonia (recurrent); Z95.0 Presence of cardiac pacemaker; I48.0 Paroxysmal atrial fibrillation; G25.81 Restless legs syndrome; Z90.710 Acquired absence of both cervix and uterus; Z95.2 Presence of prosthetic heart valve; F17.210 Nicotine dependence, cigarettes, uncomplicated; Z79.899 Other long term (current) drug therapy; Z79.01 Long term (current) use of anticoagulants
CPT/HCPCS: 10060; 99283

== ENCOUNTER 2023-06-07 12:39 | Emergency (ER) | payer MEDICARE, MEDICAID, SELFPAY ==
[2023-06-07 12:51] VITALS: BP 107/75; PULSE 85; RESP 20; O2SAT 100; BMI 26.4
--- NOTE | 2023-06-07 15:31 | ED_ITS ---
HPI - General Adult General Chief complaint: Recheck/Abnormal Lab/Rx Stated complaint: WOUND CHECK- BASE OF NECK Time Seen by Provider: 06/07/23 14:52 Source: patient Mode of arrival: walk-in History of Present Illness HPI narrative: Patient is a 52-year-old female who is presenting to the Emergency Room today with reevaluation of the wound to the back of her neck and looking to have her packing removed and have wound reevaluated. Patient is taking antibiotics. Patient has been told several times by myself and last Emergency Room visit that she needs to follow up with a surgeon, she was given Dr. Delacruz name twice. Patient has no fever or chills. Patient still has some active drainage of yellowish/whitish pus along with serosanguineous drainage. The pain has improved. No localized cellulitis or secondary infection or abscess. Patient's mother and daughter at bedside. Patient has not follow-up with a surgeon and made another appointment for unknown reason. . All systems are negative except as noted/marked. All systems reviewed and otherwise negative. . Nurses note and vital signs reviewed and patient is not hypoxic. General: The patient appears well and in no apparent distress. Patient is resting comfortably on cart. Patient is not toxic, lethargic, or listless Skin: Warm, dry, no pallor noted. There is no rash noted. No petechiae, purpura. Patient has a small iodoform gauze sticking out of the open abscess be low the occiput where the abscess was opened and drained on Wednesday, June 04. Patient has no secondary signs of infection, no erythema, cellulitis, or additional abscesses noted. See procedure note. Head: Normocephalic, atraumatic; Patient has full range of motion Of cervical spinal no difficulty. No meningeal signs or symptoms. No nuchal rigidity. Cervical lymphadenopathy bilateral. Eye: Normal conjunctiva, no drainage, EOMI. PERRL Ears, Nose, Mouth, and Throat: oral mucosa is moist. Nares patent. Mouth without vesicles. Cardiovascular: Regular Rate and Rhythm, no murmur, gallop, rub Respiratory: Patient is in no distress, no accessory muscle use, lungs are clear to auscultation, no wheezing, rales or rhonchi Back: non-tender, GI: soft, no tenderness Musculoskeletal: Patient has full range of motion of all of the extremities, no motor, sensory, or focal neurological deficits Neurological: A&O x3, normal speech Psychiatric: Cooperative Related Data Home Medications Medication Instructions Recorded Confirmed atorvastatin 80 mg tablet 80 mg PO DAILY 03/18/23 05/31/23 baclofen 5 mg tablet 5 mg PO TID PRN back spasm or pain 03/18/23 05/31/23 clonazepam 0.5 mg tablet 0.5 mg PO TID PRN anxiety 03/18/23 05/31/23 isosorbide mononitrate 30 mg 30 mg PO DAILY 03/18/23 05/31/23 tablet,extended release 24 hr levothyroxine 75 mcg tablet 75 mcg PO DAILY 03/18/23 05/31/23 nitroglycerin 0.4 mg sublingual 0.4 mg sublingual Q5M PRN chest 03/18/23 05/31/23 tablet pain omeprazole 40 mg capsule,delayed 40 mg PO DAILY 03/18/23 05/31/23 release potassium chloride 20 mEq 20 meq PO DAILY 03/18/23 05/31/23 tablet,extended release(part/cryst) ropinirole 2 mg tablet 2 mg PO TID 03/18/23 05/31/23 trazodone 50 mg tablet 50 mg PO QPM 03/18/23 05/31/23 warfarin 5 mg tablet 5 mg PO DAILY 03/18/23 05/31/23 albuterol sulfate 90 mcg/actuation 1 puff inhalation Q6H PRN SOB 05/07/23 aerosol inhaler figteybnwp-rrufcqsqytyfz-hxdovvqs 1 cap PO Q4H PRN headache 05/07/23 05/31/23 50 mg-300 mg-40 mg capsule (Fioricet) metoprolol succinate 100 mg 100 mg PO DAILY 05/07/23 05/31/23 tablet,extended release 24 hr Previous Rx's Medication Instructions Recorded fluoxetine 20 mg capsule 40 mg PO DAILY #0 caps 05/08/23 furosemide 40 mg tablet (Lasix) 40 mg PO BID #60 tabs 05/08/23 amiodarone 200 mg tablet (Pacerone) 200 mg PO QD #30 tabs 05/20/23 methocarbamol 500 mg tablet 500 mg PO Q8H PRN muscle pain #10 05/31/23 tabs cephalexin 500 mg capsule 500 mg PO BID 10 days #20 caps 06/04/23 Allergies Allergy/AdvReac Type Severity Reaction Status Date / Time erythromycin base Allergy Unknown Verified 05/31/23 11:45 ondansetron [From Zofran] AdvReac tachycardia Verified 05/31/23 11:45 PFSH [facility] Medical History (Updated 06/07/23 @ 15:31 by Christopher Farr MD) Acute torticollis ?M43.6 - Torticollis (ICD-10) CAD (coronary artery disease) ?I25.10 - Atherosclerotic heart disease of [place] coronary artery without angina pectoris (ICD-10) CHF (congestive heart failure) ?I50.9 - Heart failure, unspecified (ICD-10) Chronic HFrEF (heart failure with reduced ejection fraction) ?I50.22 - Chronic systolic (congestive) heart failure (ICD-10) Closed head injury ?S09.90XA - Unspecified injury of head, initial encounter (ICD-10) Fall from chair ?W07.XXXA - Fall from chair, initial encounter (ICD-10) Fluid overload ?E87.70 - Fluid overload, unspecified (ICD-10) Fracture of head of humerus with routine healing ?S42.293D - Other displaced fracture of upper end of unspecified humerus, subsequent encounter for fracture with routine healing (ICD-10) ANTONINA (generalized anxiety disorder) ?F41.1 - Generalized anxiety disorder (ICD-10) Generalized weakness ?R53.1 - Weakness (ICD-10) Hyperlipidemia ?E78.5 - Hyperlipidemia, unspecified (ICD-10) Hypertension ?I10 - Essential (primary) hypertension (ICD-10) Hypothyroid ?E03.9 - Hypothyroidism, unspecified (ICD-10) Lactic acidosis ?E87.20 - Acidosis, unspecified (ICD-10) Multifocal pneumonia ?J18.9 - Pneumonia, unspecified organism (ICD-10) Myocardial infarct, old ?I25.2 - Old myocardial infarction (ICD-10) Nausea ?R11.0 - Nausea (ICD-10) Pacemaker ?Z95.0 - Presence of cardiac pacemaker (ICD-10) Paroxysmal atrial fibrillation ?I48.0 - Paroxysmal atrial fibrillation (ICD-10) Rheumatic fever ?I00 - Rheumatic fever without heart involvement (ICD-10) RLS (restless legs syndrome) ?G25.81 - Restless legs syndrome (ICD-10) Surgical History History of hysterectomy ?Z90.710 - Acquired absence of both cervix and uterus (ICD-10) Mitral valve replaced ?Z95.2 - Presence of prosthetic heart valve (ICD-10) Family History Grandmother Family history of CHF (congestive heart failure) Family history of cancer Family history of hypertension Father Family history of COPD (chronic obstructive pulmonary disease) Family history of cancer Family history of diabetes mellitus Family history of hypertension Sister Family history of COPD (chronic obstructive pulmonary disease) Mother Family history of cancer Family history of hypertension Family history of myocardial infarction Family history of stroke Brother Family history of cancer Grandfather Family history of cancer Social History (Updated 05/20/23 @ 11:23 by Shaikh Crystal MD) Within the past year, how often did you have a drink containing alcohol: never Score interpretation: A score less than 3 is consistent with normal alcohol consumption. Smoking status: Current every day smoker Non-prescribed substance use: denies use Exam Constitutional Vital Signs, click to edit/add: Last Vital Signs Temp 98 F 06/07/23 15:43 Pulse 82 06/07/23 15:43 Resp 14 06/07/23 15:43 BP 107/75 06/07/23 12:51 Pulse Ox 96 06/07/23 15:43 O2 Del Method Room Air 06/07/23 15:43 Course Vital Signs Vital signs: Vital Signs Pulse Rate 85 06/07/23 12:51 Respiratory Rate 20 06/07/23 12:51 Blood Pressure 107/75 06/07/23 12:51 Pulse Oximetry 100 06/07/23 12:51 Oxygen Delivery Method Room Air 06/07/23 12:51 Temperature 98 F 06/07/23 15:43 Pulse Rate 82 06/07/23 15:43 Respiratory Rate 14 06/07/23 15:43 Blood Pressure 107/75 06/07/23 12:51 Pulse Oximetry 96 06/07/23 15:43 Oxygen Delivery Method Room Air 06/07/23 15:43 Medical Decision Making MDM Narrative Medical decision making narrative: Procedure note performed by myself. The small amount of packing was removed and the Iodoform gauze was intact from the posterior scalp abscess. Approximately 4-6 mL of additional purulent material was expressed from the abscess. New quarter inch iodoform packing was placed. Patient tolerated procedure well with no difficulty. Dry dressing was placed by nursing staff. Patient will continue taking antibiotics. Patient had iodoform gauzes removed and replaced by myself. Patient tolerated procedure well. Patient was educated several times that she must follow-up with a surgeon. We discussed Dr. Delacruz offices in [place] and [place], along with on-call surgeon name and number was given the patient. Patient understands this could be a acute on chronic abscess of posterior scalp until she follows up a surgeon for definitive care. Patient understaands this, mother and daughter at bedside understand this as well. Discharge Plan Discharge Chief Complaint: Recheck/Abnormal Lab/Rx Clinical Impression: Abscess of skin or subcutaneous tissue, Chronic wound of head Patient Disposition: Home, Self-Care Time of Disposition Decision: 15:26 Condition: Good Mode of Transportation: Private Vehicle Prescriptions / Home Meds: No Action metoprolol succinate 100 mg tablet extended release 24 hr 100 mg PO DAILY albuterol sulfate 90 mcg/actuation HFA aerosol inhaler 1 puff INHALATION Q6H PRN (Reason: SOB) snejpqsmtm-mviorgadctgan-mjnj [Fioricet] 50-300-40 mg capsule 1 cap PO Q4H PRN (Reason: headache) furosemide [Lasix] 40 mg tablet 40 mg PO BID Qty: 60 0RF fluoxetine 20 mg capsule 40 mg PO DAILY Qty: 0 0RF methocarbamol 500 mg tablet 500 mg PO Q8H PRN (Reason: muscle pain) Qty: 10 0RF cephalexin 500 mg capsule 500 mg PO BID 10 Days Qty: 20 0RF atorvastatin 80 mg tablet 80 mg PO DAILY trazodone 50 mg tablet 50 mg PO QPM isosorbide mononitrate 30 mg tablet extended release 24 hr 30 mg PO DAILY clonazepam 0.5 mg tablet 0.5 mg PO TID PRN (Reason: anxiety) omeprazole 40 mg capsule,delayed release(DR/EC) 40 mg PO DAILY levothyroxine 75 mcg tablet 75 mcg PO DAILY potassium chloride 20 mEq tablet,ER particles/crystals 20 meq PO DAILY ropinirole 2 mg tablet 2 mg PO TID warfarin 5 mg tablet 5 mg PO DAILY Patient Comments: 1.5 M,W,F, 1 tab other days nitroglycerin 0.4 mg tablet, sublingual 0.4 mg sublingual Q5M PRN (Reason: chest pain) baclofen 5 mg tablet 5 mg PO TID PRN (Reason: back spasm or pain) amiodarone [Pacerone] 200 mg Tablet 200 mg PO QD Qty: 30 0RF Instructions: Wound Infection (ED), Abscess (ED) Additional Instructions: Use warm compresses daily, once in our possible. Do not burn itself, but continue to use warm washcloths or heating pads and it drainage continues that is good. Finish her antibiotics. Follow-up in 2 or 3 days with her PCP for wound reevaluation and packing removal. It is imperative you call and follow-up the surgeon. Name and numbers of a given to multiple times. Dr. Delacruz works in [facility]. Dr. Thompson is on-call today. Stand Alone Forms: Portal Instructions Referrals: Shaikh Rojas MD [Primary Care Provider] - 1 week Sachin Thompson MD [Physician] - 1 week Discharge Date/Time: 06/07/23 15:45
[2023-06-07 15:43] VITALS: PULSE 82; RESP 14; TEMP 36.6; O2SAT 96
== END 2023-06-07 15:45 | disposition home or self-care (01) ==
PROVIDERS: Emergency Provider Emergency Medicine; PCP Internal Medicine
DX: L02.811 Cutaneous abscess of head [any part, except face] (principal); I25.10 Atherosclerotic heart disease of native coronary artery without angina pectoris; I11.0 Hypertensive heart disease with heart failure; I50.22 Chronic systolic (congestive) heart failure; F41.1 Generalized anxiety disorder; R53.1 Weakness; E78.5 Hyperlipidemia, unspecified; E03.9 Hypothyroidism, unspecified; I25.2 Old myocardial infarction; Z87.01 Personal history of pneumonia (recurrent); Z95.0 Presence of cardiac pacemaker; I48.0 Paroxysmal atrial fibrillation; G25.81 Restless legs syndrome; Z90.710 Acquired absence of both cervix and uterus; Z95.2 Presence of prosthetic heart valve; F17.210 Nicotine dependence, cigarettes, uncomplicated; Z79.899 Other long term (current) drug therapy; Z79.890 Hormone replacement therapy; Z79.01 Long term (current) use of anticoagulants
CPT/HCPCS: 99281

== ENCOUNTER 2023-06-30 00:33 | Outpatient (RCR) | payer MEDICARE, MEDICAID, SELFPAY | END 2023-07-29 16:34 | disposition home or self-care (01) | LOC: MM 00:33 | PROVIDERS: PCP Internal Medicine; Visit Provider Internal Medicine | DX: Z51.81 Encounter for therapeutic drug level monitoring (principal); Z79.01 Long term (current) use of anticoagulants; I48.0 Paroxysmal atrial fibrillation ==

== ENCOUNTER 2023-07-25 08:38 | Emergency (ER) | payer MEDICARE, MEDICAID, SELFPAY ==
[2023-07-25 08:44] VITALS: BP 115/77; PULSE 80; RESP 18; TEMP 36.6; O2SAT 98; BMI 26.6
--- NOTE | 2023-07-25 08:50 | ECG_ITS ---
The [facility] Test Date: 2023-07-25 Pat Name: HORACIO LOMBARDI Department: Room: - Gender: Female Pharmacology Associate: : 1970 Requested By: Order Number: [id number] Reading MD: OLIVA OLIVIER Measurements Intervals [place] Rate: 80 P: 108 NC: 296 QRS: -68 QRSD: 122 T: 113 QT: 418 QTc: 453 Interpretive Statements [id number] Electronic atrial pacemaker 07185 Electronic ventricular pacemaker 9120 atypical ECG Compared to ECG 05/19/2023 21:50:57 No significant changes Electronically Signed On 07-26-2023 7:40:06 EST by OLIVA OLIVIER
[2023-07-25 08:51] VITALS: PULSE 80
--- NOTE | 2023-07-25 09:34 | ED.GENADUL1 ---
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 Patient says this has happened in the past, and she has needed a battery replacement. Patient is asymptomatic. Patient lives in [place]. 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 Patient has no complaints of lightheaded, dizziness, chest pain, shortness of breath, she does not feel that she has been shocked yesterday or today. Patient feels normal, she is just coming into the Emergency Room today because of the warnings that she had from her pacemaker/Defibrillator yesterday and today. Related Data Home Medications Medication Instructions Recorded Confirmed atorvastatin 80 mg tablet 80 mg PO DAILY 03/18/23 05/31/23 baclofen 5 mg tablet 5 mg PO TID PRN back spasm or pain 03/18/23 05/31/23 clonazepam 0.5 mg tablet 0.5 mg PO TID PRN anxiety 03/18/23 05/31/23 isosorbide mononitrate 30 mg 30 mg PO DAILY 03/18/23 05/31/23 tablet,extended release 24 hr levothyroxine 75 mcg tablet 75 mcg PO DAILY 03/18/23 05/31/23 nitroglycerin 0.4 mg sublingual 0.4 mg sublingual Q5M PRN chest 03/18/23 05/31/23 tablet pain omeprazole 40 mg capsule,delayed 40 mg PO DAILY 03/18/23 05/31/23 release potassium chloride 20 mEq 20 meq PO DAILY 03/18/23 05/31/23 tablet,extended release(part/cryst) ropinirole 2 mg tablet 2 mg PO TID 03/18/23 05/31/23 trazodone 50 mg tablet 50 mg PO QPM 03/18/23 05/31/23 warfarin 5 mg tablet 5 mg PO DAILY 03/18/23 05/31/23 albuterol sulfate 90 mcg/actuation 1 puff inhalation Q6H PRN SOB 05/07/23 05/31/23 aerosol inhaler kwzfybhzpy-nvtfsoebryofi-czpkktww 1 cap PO Q4H PRN headache 05/07/23 05/31/23 50 mg-300 mg-40 mg capsule (Fioricet) metoprolol succinate 100 mg 100 mg PO DAILY 05/07/23 05/31/23 tablet,extended release 24 hr Previous Rx's Medication Instructions Recorded fluoxetine 20 mg capsule 40 mg PO DAILY #0 caps 05/08/23 furosemide 40 mg tablet (Lasix) 40 mg PO BID #60 tabs 05/08/23 amiodarone 200 mg tablet (Pacerone) 200 mg PO QD #30 tabs 05/20/23 methocarbamol 500 mg tablet 500 mg PO Q8H PRN muscle pain #10 05/31/23 tabs cephalexin 500 mg capsule 500 mg PO BID 10 days #20 caps 06/04/23 Allergies Allergy/AdvReac Type Severity Reaction Status Date / Time erythromycin base Allergy Unknown Verified 05/31/23 11:45 ondansetron [From Zofran] AdvReac tachycardia Verified 05/31/23 11:45 Review of Systems ROS Narrative All systems are negative except as noted/marked. All systems reviewed and otherwise negative. [facility] Medical History (Updated 07/25/23 @ 09:51 by Christopher Frar MD) Acute torticollis ?M43.6 - Torticollis (ICD-10) CAD (coronary artery disease) ?I25.10 - Atherosclerotic heart disease of [place] coronary artery without angina pectoris (ICD-10) CHF (congestive heart failure) ?I50.9 - Heart failure, unspecified (ICD-10) Chronic HFrEF (heart failure with reduced ejection fraction) ?I50.22 - Chronic systolic (congestive) heart failure (ICD-10) Closed head injury ?S09.90XA - Unspecified injury of head, initial encounter (ICD-10) Fall from chair ?W07.XXXA - Fall from chair, initial encounter (ICD-10) Fluid overload ?E87.70 - Fluid overload, unspecified (ICD-10) Fracture of head of humerus with routine healing ?S42.293D - Other displaced fracture of upper end of unspecified humerus, subsequent encounter for fracture with routine healing (ICD-10) ANTONINA (generalized anxiety disorder) ?F41.1 - Generalized anxiety disorder (ICD-10) Generalized weakness ?R53.1 - Weakness (ICD-10) Hyperlipidemia ?E78.5 - Hyperlipidemia, unspecified (ICD-10) Hypertension ?I10 - Essential (primary) hypertension (ICD-10) Hypothyroid ?E03.9 - Hypothyroidism, unspecified (ICD-10) Lactic acidosis ?E87.20 - Acidosis, unspecified (ICD-10) Multifocal pneumonia ?J18.9 - Pneumonia, unspecified organism (ICD-10) Myocardial infarct, old ?I25.2 - Old myocardial infarction (ICD-10) Nausea ?R11.0 - Nausea (ICD-10) Pacemaker ?Z95.0 - Presence of cardiac pacemaker (ICD-10) Paroxysmal atrial fibrillation ?I48.0 - Paroxysmal atrial fibrillation (ICD-10) Rheumatic fever ?I00 - Rheumatic fever without heart involvement (ICD-10) RLS (restless legs syndrome) ?G25.81 - Restless legs syndrome (ICD-10) Surgical History History of hysterectomy ?Z90.710 - Acquired absence of both cervix and uterus (ICD-10) Mitral valve replaced ?Z95.2 - Presence of prosthetic heart valve (ICD-10) Family History Grandmother Family history of CHF (congestive heart failure) Family history of cancer Family history of hypertension Father Family history of COPD (chronic obstructive pulmonary disease) Family history of cancer Family history of diabetes mellitus Family history of hypertension Sister Family history of COPD (chronic obstructive pulmonary disease) Mother Family history of cancer Family history of hypertension Family history of myocardial infarction Family history of stroke Brother Family history of cancer Grandfather Family history of cancer Social History (Updated 05/20/23 @ 11:23 by Shaikh Crystal MD) Within the past year, how often did you have a drink containing alcohol: never Score interpretation: A score less than 3 is consistent with normal alcohol consumption. Smoking status: Former smoker Non-prescribed substance use: denies use Exam Narrative Exam Narrative: Nurses note and vital signs reviewed and patient is not hypoxic. General: The patient appears well and in no apparent distress. Patient is resting comfortably on cart. Patient is not toxic, lethargic, or listless Skin: Warm, dry, no pallor noted. There is no rash noted. No petechiae, purpura. Head: Normocephalic, atraumatic Eye: Normal conjunctiva, no drainage, EOMI. PERRL Ears, Nose, Mouth, and Throat: oral mucosa is moist. Cardiovascular: Regular Rate and Rhythm, no murmur, gallop, rub; Patient chest has a pacemaker/defibrillator to the left upper chest wall, no tenderness to palpation, no redness, no abscess, no drainage, no acute findings on physical exam. Respiratory: Patient is in no distress, no accessory muscle use, lungs are clear to auscultation, no wheezing, rales or rhonchi Back: non-tender, GI: soft, no tenderness Musculoskeletal: Patient has full range of motion of all of the extremities, no motor, sensory, or focal neurological deficits Neurological: A&O x3, normal speech Psychiatric: Cooperative Constitutional Vital Signs, click to edit/add: Last Vital Signs Temp 97.9 F 07/25/23 08:44 Pulse 80 07/25/23 08:44 Resp 18 07/25/23 08:44 BP 115/77 07/25/23 08:44 Pulse Ox 98 07/25/23 08:44 O2 Del Method Room Air 07/25/23 08:44 Course Vital Signs Vital signs: Vital Signs Temperature 97.9 F 07/25/23 08:44 Pulse Rate 80 07/25/23 08:44 Respiratory Rate 18 07/25/23 08:44 Blood Pressure 115/77 07/25/23 08:44 Pulse Oximetry 98 07/25/23 08:44 Oxygen Delivery Method Room Air 07/25/23 08:44 Temperature 97.9 F 07/25/23 08:44 Pulse Rate 80 07/25/23 08:44 Respiratory Rate 18 07/25/23 08:44 Blood Pressure 115/77 07/25/23 08:44 Pulse Oximetry 98 07/25/23 08:44 Oxygen Delivery Method Room Air 07/25/23 08:44 Medical Decision Making MDM Narrative Medical decision making narrative: approx 30 minutes has been spent by Marcelo WINSLOW at trying to figure out what pacemaker/defibrillator the patient has, and also trying to interrogated. Patient has had mornings, but is never been shocked or defibrillated. Ultimately patient was able to have somebody at home taking a picture of her device and it is a [employer] device and 2 attempts of using [employer] interrogator was done, reports of been sent. A [employer] retail customer service representative called at approximately 0 [phone]; patient has no acute arrhythmias, patient has not been shocked, only findings were the patient needs a battery change. The recommendation is for patient to call her secretary to the vice president to follow-up with her secretary to the vice president to have a battery change scheduled. Patient is to call the office tomorrow. Patient has been anywhere this, patient understands this, no other acute concerns or complaints at this time. Patient is asymptomatic at discharge, thankful for help. Patient has a [employer] device. ECG Data Attestation: I personally reviewed and interpreted this ECG as follows: (EKG interpretation. Electronic atrial paced rhythm 80 beats a minute. Left axis deviation. No acute ST elevation, no acute ectopy. QTC of 453.) Discharge Plan Discharge Chief Complaint: Recheck/Abnormal Lab/Rx Clinical Impression: Other medical devices associated with adverse incidents Patient Disposition: Home, Self-Care Condition: Fair Prescriptions / Home Meds: No Action metoprolol succinate 100 mg tablet extended release 24 hr 100 mg PO DAILY albuterol sulfate 90 mcg/actuation HFA aerosol inhaler 1 puff INHALATION Q6H PRN (Reason: SOB) haudzkuoor-heqceodnawsrj-quiz [Fioricet] 50-300-40 mg capsule 1 cap PO Q4H PRN (Reason: headache) furosemide [Lasix] 40 mg tablet 40 mg PO BID Qty: 60 0RF fluoxetine 20 mg capsule 40 mg PO DAILY Qty: 0 0RF methocarbamol 500 mg tablet 500 mg PO Q8H PRN (Reason: muscle pain) Qty: 10 0RF cephalexin 500 mg capsule 500 mg PO BID 10 Days Qty: 20 0RF atorvastatin 80 mg tablet 80 mg PO DAILY trazodone 50 mg tablet 50 mg PO QPM isosorbide mononitrate 30 mg tablet extended release 24 hr 30 mg PO DAILY clonazepam 0.5 mg tablet 0.5 mg PO TID PRN (Reason: anxiety) omeprazole 40 mg capsule,delayed release(DR/EC) 40 mg PO DAILY levothyroxine 75 mcg tablet 75 mcg PO DAILY potassium chloride 20 mEq tablet,ER particles/crystals 20 meq PO DAILY ropinirole 2 mg tablet 2 mg PO TID warfarin 5 mg tablet 5 mg PO DAILY Patient Comments: 1.5 MW,F, 1 tab other days nitroglycerin 0.4 mg tablet, sublingual 0.4 mg sublingual Q5M PRN (Reason: chest pain) baclofen 5 mg tablet 5 mg PO TID PRN (Reason: back spasm or pain) amiodarone [Pacerone] 200 mg Tablet 200 mg PO QD Qty: 30 0RF Instructions: Implantable Cardioverter Defibrillator (DC) Additional Instructions: A pacemaker/defibrillator has been interrogated by [employer] today. Has been noted that yesterday do need a battery replacement. Call your secretary to the vice president tomorrow to schedule battery replacement. Stand Alone Forms: Portal Instructions Referrals: Physician,Non-Staff, MD [Primary Care Provider] - 1 week
== END 2023-07-25 10:02 | disposition home or self-care (01) ==
PROVIDERS: Emergency Provider Emergency Medicine
DX: Z45.02 Encounter for adjustment and management of automatic implantable cardiac defibrillator (principal); I25.10 Atherosclerotic heart disease of native coronary artery without angina pectoris; I50.22 Chronic systolic (congestive) heart failure; F41.1 Generalized anxiety disorder; E78.5 Hyperlipidemia, unspecified; I11.0 Hypertensive heart disease with heart failure; E03.9 Hypothyroidism, unspecified; Z87.01 Personal history of pneumonia (recurrent); Z87.81 Personal history of (healed) traumatic fracture; I48.0 Paroxysmal atrial fibrillation; I25.2 Old myocardial infarction; Z90.710 Acquired absence of both cervix and uterus; Z95.2 Presence of prosthetic heart valve; Z87.891 Personal history of nicotine dependence; Z79.899 Other long term (current) drug therapy; Z79.01 Long term (current) use of anticoagulants; Z79.890 Hormone replacement therapy
CPT/HCPCS: 93005; 99283

== ENCOUNTER 2023-07-28 20:58 | Emergency (ER) | payer MEDICARE, MEDICAID, SELFPAY ==
[2023-07-28] VITALS (21 sets, daily range): BP systolic 117–139; BP diastolic 74–98; PULSE 80; RESP 11–28; TEMP 36.7; O2SAT 91–100; BMI 29.9
--- NOTE | 2023-07-28 21:07 | ECG_ITS ---
The [facility] Test Date: 2023-07-28 Pat Name: HORACIO LOMBARDI Department: Room: - Gender: Female Community Engagement Representative: : 1970 Requested By: Order Number: [id number] Reading MD: OLIVA OLVIIER Measurements Intervals [place] Rate: 80 P: 19 [place]: 256 QRS: 257 QRSD: 200 T: 66 QT: 494 QTc: 529 Interpretive Statements [id number] Electronic ventricular pacemaker 9120 atypical ECG Compared to ECG 07/25/2023 08:50:54 Atrial-paced complex(es) or rhythm no longer present Electronically Signed On 07-29-2023 7:21:37 EST by OLIVA OLIVIER
--- NOTE | 2023-07-28 21:07 | XR_ITS ---
The [address] [address] Patient Name: HORACIO LOMBARDI MRN: [id number] date: 1970 Sex: F Assigned Patient Location: ER Current Patient Location: ER Accession/Order Number: [id number] Exam Date: 07/28/2023 21:40 Report Date: 07/28/2023 22:07 At the request of: SUSAN RICKETTS Procedure: XR chest 2V EXAM: XR chest 2V HISTORY: chest pain COMPARISON: Portable chest 05/08/2023 TECHNIQUE: PA and lateral chest x-rays FINDINGS: The lung parenchyma is free of acute consolidation or infiltrate. No pneumothorax or pleural effusion. Patient is status post median sternotomy, TAVR and left-sided cardiac pacemaker. The heart is upper limits of normal, however, stable with the prior study. Chronic displaced fracture of the right humeral head. XR/XR chest 2V IMPRESSION: No visualized acute abnormality. Electronically authenticated by: JAYLA SANTA Date: 07/28/2023 22:07
--- NOTE | 2023-07-28 21:09 | ED_ITS ---
HPI - Chest Pain General Chief Complaint: Chest Pain Stated Complaint: OTHER Time Seen by Provider: 07/28/23 21:07 History of Present Illness HPI narrative: chest pain. States she was here this past weekend and her defibrillator was interrogated. . She has past history of CAD and states she has stents in place. Past history of Rheumatic heart disease and had her mitral valve replace 2- 3 years ago and is on coumadin. Past history of cardiac arrhythmia for which she is on Amiodarone. Believes her last ECHO to monitor effects of Amiodarone was about a year ago. History of CHF and fluid retention. States she has been without lasix 40 bid for past 3 days. Not short of breath but has increased lower ext. edema. States alyssa her sister called her and informed her that [facility] was trying to get in contact with her because they noticed with her interrogation that her battery was very low and would need intervention. She is suppose to see them tomorrow. States she became stressed after this information and developed chest pain. She took nitro SL and the pain resolved. She now presents via Squad asymptomatic but feels anxious. She takes klonipin tid and is asking for a dose tonight. Sl. Nausea at this time. No abdominal pain or dyspnea MD complaint: Reports chest pain Related Data Home Medications Medication Instructions Recorded Confirmed atorvastatin 80 mg tablet 80 mg PO DAILY 03/18/23 07/28/23 baclofen 5 mg tablet 5 mg PO TID PRN back spasm or pain 03/18/23 05/31/23 clonazepam 0.5 mg tablet 0.5 mg PO TID PRN anxiety 03/18/23 05/31/23 isosorbide mononitrate 30 mg 30 mg PO DAILY 03/18/23 07/28/23 tablet,extended release 24 hr levothyroxine 75 mcg tablet 75 mcg PO DAILY 03/18/23 07/28/23 nitroglycerin 0.4 mg sublingual 0.4 mg sublingual Q5M PRN chest 03/18/23 07/28/23 tablet pain omeprazole 40 mg capsule,delayed 40 mg PO DAILY 03/18/23 07/28/23 release potassium chloride 20 mEq 20 meq PO DAILY 03/18/23 07/28/23 tablet,extended release(part/cryst) ropinirole 2 mg tablet 2 mg PO TID 03/18/23 07/28/23 trazodone 50 mg tablet 50 mg PO QPM 03/18/23 07/28/23 warfarin 5 mg tablet 5 mg PO DAILY 03/18/23 07/28/23 albuterol sulfate 90 mcg/actuation 1 puff inhalation Q6H PRN SOB 05/07/23 07/28/23 aerosol inhaler vooisicnhq-gpfztgmkefktt-mvmsrhqq 1 cap PO Q4H PRN headache 05/07/23 07/28/23 50 mg-300 mg-40 mg capsule (Fioricet) metoprolol succinate 100 mg 100 mg PO DAILY 05/07/23 07/28/23 tablet,extended release 24 hr Previous Rx's Medication Instructions Recorded fluoxetine 20 mg capsule 40 mg PO DAILY #0 caps 05/08/23 furosemide 40 mg tablet (Lasix) 40 mg PO BID #60 tabs 05/08/23 amiodarone 200 mg tablet (Pacerone) 200 mg PO QD #30 tabs 05/20/23 methocarbamol 500 mg tablet 500 mg PO Q8H PRN muscle pain #10 05/31/23 tabs cephalexin 500 mg capsule 500 mg PO BID 10 days #20 caps 06/04/23 Allergies Allergy/AdvReac Type Severity Reaction Status Date / Time erythromycin base Allergy Unknown Verified 07/28/23 21:02 ondansetron [From Zofran] AdvReac tachycardia Verified 07/28/23 21:02 Review of Systems ROS Status of ROS 10 or more systems reviewed and unremarkable except as noted in history and below [facility] Medical History (Updated 07/29/23 @ 01:12 by Patrick Haque MD) Acute torticollis ?M43.6 - Torticollis (ICD-10) CAD (coronary artery disease) ?I25.10 - Atherosclerotic heart disease of [place] coronary artery without angina pectoris (ICD-10) CHF (congestive heart failure) ?I50.9 - Heart failure, unspecified (ICD-10) Chronic HFrEF (heart failure with reduced ejection fraction) ?I50.22 - Chronic systolic (congestive) heart failure (ICD-10) Closed head injury ?S09.90XA - Unspecified injury of head, initial encounter (ICD-10) Fall from chair ?W07.XXXA - Fall from chair, initial encounter (ICD-10) Fluid overload ?E87.70 - Fluid overload, unspecified (ICD-10) Fracture of head of humerus with routine healing ?S42.293D - Other displaced fracture of upper end of unspecified humerus, subsequent encounter for fracture with routine healing (ICD-10) ANTONINA (generalized anxiety disorder) ?F41.1 - Generalized anxiety disorder (ICD-10) Generalized weakness ?R53.1 - Weakness (ICD-10) Hyperlipidemia ?E78.5 - Hyperlipidemia, unspecified (ICD-10) Hypertension ?I10 - Essential (primary) hypertension (ICD-10) Hypothyroid ?E03.9 - Hypothyroidism, unspecified (ICD-10) Lactic acidosis ?E87.20 - Acidosis, unspecified (ICD-10) Multifocal pneumonia ?J18.9 - Pneumonia, unspecified organism (ICD-10) Myocardial infarct, old ?I25.2 - Old myocardial infarction (ICD-10) Nausea ?R11.0 - Nausea (ICD-10) Pacemaker ?Z95.0 - Presence of cardiac pacemaker (ICD-10) Paroxysmal atrial fibrillation ?I48.0 - Paroxysmal atrial fibrillation (ICD-10) Rheumatic fever ?I00 - Rheumatic fever without heart involvement (ICD-10) RLS (restless legs syndrome) ?G25.81 - Restless legs syndrome (ICD-10) Surgical History History of hysterectomy ?Z90.710 - Acquired absence of both cervix and uterus (ICD-10) Mitral valve replaced ?Z95.2 - Presence of prosthetic heart valve (ICD-10) Family History Grandmother Family history of CHF (congestive heart failure) Family history of cancer Family history of hypertension Father Family history of COPD (chronic obstructive pulmonary disease) Family history of cancer Family history of diabetes mellitus Family history of hypertension Sister Family history of COPD (chronic obstructive pulmonary disease) Mother Family history of cancer Family history of hypertension Family history of myocardial infarction Family history of stroke Brother Family history of cancer Grandfather Family history of cancer Social History (Updated 05/20/23 @ 11:23 by Shaikh Crystal MD) Within the past year, how often did you have a drink containing alcohol: never Score interpretation: A score less than 3 is consistent with normal alcohol consumption. Smoking status: Current every day smoker Non-prescribed substance use: denies use Exam Constitutional Vital Signs, click to edit/add: Last Vital Signs Temp 98.0 F 07/28/23 20:56 Pulse 80 07/29/23 02:10 Resp 19 07/29/23 02:10 BP 123/74 07/28/23 23:30 Pulse Ox 99 07/29/23 02:00 O2 Del Method Room Air 07/28/23 20:56 Common normals: no apparent distress, average body habitus, oriented x3, no limitations, healthy appearing, alert and well nourished Eye Common normals: PERRL, EOMs intact bilaterally and conjunctivae normal Respiratory Common normals: normal respiratory effort, no retractions, no use of accessory muscles and clear to auscultation bilaterally Cardio Common normals: regular rate, S1 normal heart sound and S2 normal heart sound Other: distant heart sounds GI Common normals: Normal to inspection, nondistended, normoactive bowel sounds present Extremity Common normals: normal to inspection Other: 1+ pitting bilat lower ext Neuro Common normals: oriented x3, CN's II-XII intact bilaterally, moves all extremities, no focal motor deficits and no sensory deficits noted Psych Appearance: grossly normal Course Vital Signs Vital signs: Vital Signs Temperature 98.0 F 07/28/23 20:56 Pulse Rate 80 07/28/23 20:56 Respiratory Rate 18 07/28/23 20:56 Blood Pressure 139/98 H 07/28/23 20:56 Pulse Oximetry 100 07/28/23 20:56 Oxygen Delivery Method Room Air 07/28/23 20:56 Temperature 98.0 F 07/28/23 20:56 Pulse Rate 80 07/29/23 02:10 Respiratory Rate 19 07/29/23 02:10 Blood Pressure 123/74 07/28/23 23:30 Pulse Oximetry 99 07/29/23 02:00 Oxygen Delivery Method Room Air 07/28/23 20:56 MDM - Chest Pain MDM Narrative Medical decision making narrative: past history of heart disease including arrhythmia for which she takes amiodarone. history of anxiety and cardiomyopathy. Has AICD in place. Found out tonight the battery in her defibrillator is needing replacement and she developed chest pain. Pain was relieved after one nitro SL. also history of anxiety and she believes all he symptoms were anxiety related. Treated with Klonopin in the department. Serial troponin neg. EKG with paced rhythm. Patient has an appointment tomorrow with cardiology to address her low battery charge of her AICD. she also admits she has not taken coumadin in 3 days. Her INR is subtherapeutic and she has chronic anemia. Given dose of coumadin tonight while in the department Lab Data Labs: Lab Results 07/28/23 07/29/23 Range/Units 21:33 00:00 WBC 9.7 (4.0-11.0) 10^3/uL RBC 4.65 (4.20-5.40) 10^6/uL Hgb 8.7 L (12.0-16.0) g/dL Hct 32.1 L (36.0-48.0) % MCV 69.0 L (81.0-99.0) fL MCH 18.7 L (26.7-34.0) pg MCHC 27.1 L (29.9-35.2) g/dL RDW 21.2 H (11.0-15.0) % Plt Count 253 (150-450) 10^3/uL MPV 10.4 (9.5-13.5) fL Neut % (Auto) 69.8 (43.0-75.0) % Lymph % (Auto) 15.0 L (20.5-60.0) % [place] % (Auto) 10.6 (1.7-12.0) % Eos % (Auto) 2.9 (0.9-7.0) % Baso % (Auto) 1.3 (0.2-2.0) % Neut # (Auto) 6.8 H (1.4-6.5) 10^3/uL Lymph # (Auto) 1.5 (1.2-3.8) 10^3/uL [place] # (Auto) 1.0 H (0.3-0.8) 10^3/uL Eos # (Auto) 0.3 (0.0-0.7) 10^3/uL Baso # (Auto) 0.1 (0.0-0.1) 10^3/uL Abs Immat Gran (auto) 0.04 H (0.00-0.03) 10^3/uL Imm/Tot Granulo (auto) 0.4 (0.0-0.5) % PT 11.4 (9.0-11.6) sec INR 1.08 Sodium 138 (136-145) mmol/L Potassium 4.0 (3.5-5.1) mmol/L Chloride 105 (98-107) mmol/L Carbon Dioxide 23.7 (21.0-32.0) mmol/L Anion Gap 13.3 BUN 17.0 (7.0-18.0) mg/dL Creatinine 0.94 (0.55-1.02) mg/dL Est GFR ( Amer) >60 (>=60) Est GFR (Non-Af Amer) >60 (>=60) BUN/Creatinine Ratio 18.1 Glucose 105 (74-106) mg/dL Calcium 8.5 (8.5-10.1) mg/dL Troponin I High Sens 17.0 12.7 (4.0-51.3) pg/mL NT-Pro-B Natriuret Pep 4171.0 H* (<=900.0) pg/mL Discharge Plan Discharge Chief Complaint: Chest Pain Clinical Impression: Anxiety, Chest pain Patient Disposition: Home, Self-Care Prescriptions / Home Meds: No Action metoprolol succinate 100 mg tablet extended release 24 hr 100 mg PO DAILY albuterol sulfate 90 mcg/actuation HFA aerosol inhaler 1 puff INHALATION Q6H PRN (Reason: SOB) [id number]-hwgfvnnlcdqpn-[id number] [Fioricet] 50-300-40 mg capsule 1 cap PO Q4H PRN (Reason: headache) furosemide [Lasix] 40 mg tablet 40 mg PO BID Qty: 60 0RF fluoxetine 20 mg capsule 40 mg PO DAILY Qty: 0 0RF methocarbamol 500 mg tablet 500 mg PO Q8H PRN (Reason: muscle pain) Qty: 10 0RF cephalexin 500 mg capsule 500 mg PO BID 10 Days Qty: 20 0RF atorvastatin 80 mg tablet 80 mg PO DAILY trazodone 50 mg tablet 50 mg PO QPM isosorbide mononitrate 30 mg tablet extended release 24 hr 30 mg PO DAILY clonazepam 0.5 mg tablet 0.5 mg PO TID PRN (Reason: anxiety) omeprazole 40 mg capsule,delayed release(DR/EC) 40 mg PO DAILY levothyroxine 75 mcg tablet 75 mcg PO DAILY potassium chloride 20 mEq tablet,ER particles/crystals 20 meq PO DAILY ropinirole 2 mg tablet 2 mg PO TID warfarin 5 mg tablet 5 mg PO DAILY Patient Comments: 1.5 M,W,F, 1 tab other days nitroglycerin 0.4 mg tablet, sublingual 0.4 mg sublingual Q5M PRN (Reason: chest pain) baclofen 5 mg tablet 5 mg PO TID PRN (Reason: back spasm or pain) amiodarone [Pacerone] 200 mg Tablet 200 mg PO QD Qty: 30 0RF Instructions: Chest Pain (ED), Anxiety (ED) Stand Alone Forms: Portal Instructions Referrals: Physician,Non-Staff, MD [Primary Care Provider] - 1 week Discharge Date/Time: 07/29/23 02:34
--- NOTE | 2023-07-28 21:23 | PC.NURSE ---
Pt presents to ER for chest pain that is now resolved Pt took 1 Nitro at home before calling 911 Pt states she has a pace maker that the battery is low in Pt was seen in our ER a few days ago to have it interrogated Pt received a phone call alyssa telling her that the battery was low which caused her a lot of panic which she believes resulted in chest pain Pt states she had an AR at 28 years old - due to rheumatic fever as a child Pt states she has heart disease, CHF, and asthma Pt states she has had stents palced which are now blocked and has had open heart in the past Pt states 1 year ago she had a mitral valve replacement Pt states she is retaining water right now because she has been out of her Lasix for [address] Duke at [facility] for her pacemaker - it has been 1 year since her last echo Pt's pace maker was placed 6-7 years ago Pt states she has been under a lot of stress lately Before this nurse left the room pt requested some Ativan for her anxiety Pt states that she has a prescription for Ativan at home, the last one she took was this morning .5mg Pt states she can take 3 a day and is asking for one right now to help with her anxiety
[2023-07-28 21:50] LABS: Basophils Absolute Auto 0.1 10^3/uL (0.0-0.1); Basophils Percent Auto 1.3 % (0.2-2.0); Eosinophils Absolute Auto 0.3 10^3/uL (0.0-0.7); Eosinophils Percent Auto 2.9 % (0.9-7.0); Hematocrit 32.1 % (36.0-48.0); Hemoglobin 8.7 g/dL (12.0-16.0); Immature Granulocytes Abs Auto 0.04 10^3/uL (0.00-0.03); Immature Granulocytes Pct Auto 0.4 % (0.0-0.5); Lymphocytes Absolute Auto 1.5 10^3/uL (1.2-3.8); Mean Corpuscular HGB Conc 27.1 g/dL (29.9-35.2); Mean Corpuscular Hemoglobin 18.7 pg (26.7-34.0); Mean Platelet Volume 10.4 fL (9.5-13.5); Monocytes Percent Auto 10.6 % (1.7-12.0); Neutrophils Absolute Auto 6.8 10^3/uL (1.4-6.5); Neutrophils Percent Auto 69.8 % (43.0-75.0); Platelet Count 253 10^3/uL (150-450); Red Blood Count 4.65 10^6/uL (4.20-5.40); Red Cell Distribution Width 21.2 % (11.0-15.0); White Blood Count 9.7 10^3/uL (4.0-11.0)
[2023-07-28] MEDS: LORAZEPAM 0.5 MG TABLET PO (21:54)
[2023-07-28] MEDS: FUROSEMIDE 40 MG/4 ML VIAL IVP (21:54)
[2023-07-28 22:00] LABS: INR 1.08; Prothrombin Time 11.4 sec (9.0-11.6)
[2023-07-28 22:08] LABS: Anion Gap 13.3; BUN Creatinine Ratio 18.1; Calcium 8.5 mg/dL (8.5-10.1); Carbon Dioxide 23.7 mmol/L (21.0-32.0); Chloride 105 mmol/L (98-107); Estimated GFR (African America >60 (>=60); Estimated GFR (Non-African Ame >60 (>=60); Glucose 105 mg/dL (74-106); Sodium 138 mmol/L (136-145)
[2023-07-29] VITALS (14 sets, daily range): PULSE 80; RESP 18–26; O2SAT 98–100
[2023-07-29 00:38] LABS: Troponin I High Sensitivity 12.7 pg/mL (4.0-51.3)
[2023-07-29] MEDS: ACETAMINOPHEN 500 MG TABLET 1000 MG PO (01:09)
[2023-07-29] MEDS: WARFARIN SODIUM 6 MG TABLET PO (02:11)
== END 2023-07-29 02:34 | disposition home or self-care (01) ==
PROVIDERS: Emergency Provider Internal Medicine
DX: R07.9 Chest pain, unspecified (principal); F41.9 Anxiety disorder, unspecified; I25.10 Atherosclerotic heart disease of native coronary artery without angina pectoris; I50.22 Chronic systolic (congestive) heart failure; E78.5 Hyperlipidemia, unspecified; I11.0 Hypertensive heart disease with heart failure; I48.0 Paroxysmal atrial fibrillation; G25.81 Restless legs syndrome; E03.9 Hypothyroidism, unspecified; Z95.2 Presence of prosthetic heart valve; Z90.710 Acquired absence of both cervix and uterus; Z95.5 Presence of coronary angioplasty implant and graft; Z95.810 Presence of automatic (implantable) cardiac defibrillator; Z79.899 Other long term (current) drug therapy; I25.2 Old myocardial infarction; Z79.890 Hormone replacement therapy; Z87.01 Personal history of pneumonia (recurrent); Z79.01 Long term (current) use of anticoagulants
CPT/HCPCS: 36415; 71046; 80048; 83880; 84484; 85025; 85610; 93005; 96374; 99285

== ENCOUNTER 2023-07-30 08:56 | Outpatient (RCR) | payer MEDICARE, MEDICAID, SELFPAY | END 2023-08-27 14:59 | disposition home or self-care (01) | LOC: MM 08:56 | PROVIDERS: Visit Provider Internal Medicine | DX: Z51.81 Encounter for therapeutic drug level monitoring (principal); Z79.01 Long term (current) use of anticoagulants; I48.0 Paroxysmal atrial fibrillation ==

== ENCOUNTER 2023-08-30 00:31 | Outpatient (RCR) | payer MEDICARE, MEDICAID, SELFPAY | END 2023-09-29 15:44 | disposition home or self-care (01) | LOC: MM 00:31 | PROVIDERS: Visit Provider Internal Medicine | DX: Z51.81 Encounter for therapeutic drug level monitoring (principal); Z79.01 Long term (current) use of anticoagulants; I48.0 Paroxysmal atrial fibrillation ==

== ENCOUNTER 2023-09-05 12:14 | Emergency (ER) | payer MEDICARE, MEDICAID, SELFPAY ==
[2023-09-05 12:23] VITALS: BP 115/57; PULSE 82; RESP 20; TEMP 36.8; O2SAT 99; BMI 30.7
--- NOTE | 2023-09-05 12:48 | ED_ITS ---
HPI - General Adult General Chief complaint: Skin/Abscess/Foreign Body Stated complaint: LUMPS/ BUMPS TO NECK Time Seen by Provider: 09/05/23 12:33 Source: patient Mode of arrival: walk-in Limitations: no limitations History of Present Illness HPI narrative: Is coming to us with a scalp swelling that she has been having at least for 3- month over the last few days she mentioned that she was trying to poke it and a pparently she mentioned some redness in the area and pain. No fever no chills no other complaints Related Data Home Medications Medication Instructions Recorded Confirmed atorvastatin 80 mg tablet 80 mg PO DAILY 03/18/23 07/28/23 baclofen 5 mg tablet 5 mg PO TID PRN back spasm or pain 03/18/23 05/31/23 clonazepam 0.5 mg tablet 0.5 mg PO TID PRN anxiety 03/18/23 05/31/23 isosorbide mononitrate 30 mg 30 mg PO DAILY 03/18/23 07/28/23 tablet,extended release 24 hr levothyroxine 75 mcg tablet 75 mcg PO DAILY 03/18/23 07/28/23 nitroglycerin 0.4 mg sublingual 0.4 mg sublingual Q5M PRN chest 03/18/23 07/28/23 tablet pain omeprazole 40 mg capsule,delayed 40 mg PO DAILY 03/18/23 07/28/23 release potassium chloride 20 mEq 20 meq PO DAILY 03/18/23 07/28/23 tablet,extended release(part/cryst) ropinirole 2 mg tablet 2 mg PO TID 03/18/23 07/28/23 trazodone 50 mg tablet 50 mg PO QPM 03/18/23 07/28/23 warfarin 5 mg tablet 5 mg PO DAILY 03/18/23 07/28/23 albuterol sulfate 90 mcg/actuation 1 puff inhalation Q6H PRN SOB 05/07/23 07/28/23 aerosol inhaler kavfuumleg-odrpwfzlnfhey-gwqyiyad 1 cap PO Q4H PRN headache 05/07/23 07/28/23 50 mg-300 mg-40 mg capsule (Fioricet) metoprolol succinate 100 mg 100 mg PO DAILY 05/07/23 07/28/23 tablet,extended release 24 hr Previous Rx's Medication Instructions Recorded fluoxetine 20 mg capsule 40 mg (2 x 20 mg) PO DAILY #0 caps 05/08/23 furosemide 40 mg tablet (Lasix) 40 mg PO BID #60 tabs 05/08/23 amiodarone 200 mg tablet (Pacerone) 200 mg PO QD #30 tabs 05/20/23 methocarbamol 500 mg tablet 500 mg PO Q8H PRN muscle pain #10 05/31/23 tabs cephalexin 500 mg capsule 500 mg PO BID 10 days #20 caps 06/04/23 amoxicillin 875 mg-potassium 1 tab PO Q12H #20 tabs 09/05/23 clavulanate 125 mg tablet doxycycline hyclate 100 mg tablet 100 mg PO BID 7 days #14 tabs 09/05/23 Allergies Allergy/AdvReac Type Severity Reaction Status Date / Time erythromycin base Allergy Unknown Verified 07/28/23 21:02 ondansetron [From Zofran] AdvReac tachycardia Verified 07/28/23 21:02 Review of Systems ROS Status of ROS 10 or more systems reviewed and unremark able except as noted in history and below [facility] Medical History (Updated 09/05/23 @ 12:46 by ) Lactic acidosis ?E87.20 - Acidosis, unspecified (ICD-10) Fluid overload ?E87.70 - Fluid overload, unspecified (ICD-10) Nausea ?R11.0 - Nausea (ICD-10) Generalized weakness ?R53.1 - Weakness (ICD-10) ANTONINA (generalized anxiety disorder) ?F41.1 - Generalized anxiety disorder (ICD-10) RLS (restless legs syndrome) ?G25.81 - Restless legs syndrome (ICD-10) Hypothyroid ?E03.9 - Hypothyroidism, unspecified (ICD-10) Hyperlipidemia ?E78.5 - Hyperlipidemia, unspecified (ICD-10) CAD (coronary artery disease) ?I25.10 - Atherosclerotic heart disease of [place] coronary artery without angina pectoris (ICD-10) Paroxysmal atrial fibrillation ?I48.0 - Paroxysmal atrial fibrillation (ICD-10) Chronic HFrEF (heart failure with reduced ejection fraction) ?I50.22 - Chronic systolic (congestive) heart failure (ICD-10) Hypertension ?I10 - Essential (primary) hypertension (ICD-10) Rheumatic fever ?I00 - Rheumatic fever without heart involvement (ICD-10) Pacemaker ?Z95.0 - Presence of cardiac pacemaker (ICD-10) Myocardial infarct, old ?I25.2 - Old myocardial infarction (ICD-10) Multifocal pneumonia ?J18.9 - Pneumonia, unspecified organism (ICD-10) CHF (congestive heart failure) ?I50.9 - Heart failure, unspecified (ICD-10) Acute torticollis ?M43.6 - Torticollis (ICD-10) Fracture of head of humerus with routine healing ?S42.293D - Other displaced fracture of upper end of unspecified humerus, sub sequent encounter for fracture with routine healing (ICD-10) Closed head injury ?S09.90XA - Unspecified injury of head, initial encounter (ICD-10) Fall from chair ?W07.XXXA - Fall from chair, initial encounter (ICD-10) Surgical History History of hysterectomy ?Z90.710 - Acquired absence of both cervix and uterus (ICD-10) Mitral valve replaced ?Z95.2 - Presence of prosthetic heart valve (ICD-10) Family History Grandmother Family history of CHF (congestive heart failure) Family history of cancer Family history of hypertension Father Family history of COPD (chronic obstructive pulmonary disease) Family history of cancer Family history of diabetes mellitus Family history of hypertension Sister Family history of COPD (chronic obstructive pulmonary disease) Mother Family history of cancer Family history of hypertension Family history of myocardial infarction Family history of stroke Brother Family history of cancer Grandfather Family history of cancer Social History (Updated 05/20/23 @ 11:23 by Shaikh Crystal MD) Within the past year, how often did you have a drink containing alcohol: never Score interpretation: A score less than 3 is consistent with normal alcohol consumption. Smoking status: Former smoker Non-prescribed substance use: denies use Exam Narrative Exam Narrative: Nurses notes and vital signs reviewed and patient is not hypoxic. General: Well-appearing and in no apparent distress. Skin: Warm, dry, no pallor noted. No rash. Head: Normocephalic, atraumatic. At the back of the scalp on the right side the patient have an area of chronic swelling that is 2 x 3 cm and 1 cm thick oval in shape, the patient have a mild redness on top of it no surrounding induration or tenderness Neck: Supple, non-tender. Eye: Pupils are equal, round and EOMI. No scleral icterus. Ears, Nose, Mouth, and Throat: TM are clear, no nasal mucosal hypertrophy. Oral mucosa is moist, no posterior oropharynx erythema, uvula is mid-line Cardiovascular: Regular Rate and Rhythm without murmur, gallop or rub. Respiratory: No accessory muscle use or respiratory distress. Lungs are clear to auscultation, no wheezing, rales or rhonchi Chest Wall: no tenderness Back: No midline thoracic or lumbar vertebral tenderness. No CVA tenderness Musculoskeletal: normal ROM, no calf or popliteal tenderness, no lower extremity edema/swelling GI: Abdomen is soft, non-distended. Normal bowel sounds. No masses appreciated. No tenderness to palpation. No rebound, guarding, or rigidity noted. Neurological: A&O x4. No cranial nerve dysfunction observed. No truncal ataxia. Moves all extremities. Sensation intact. Psychiatric: Cooperative and interactive. Normal mood and affect. Constitutional Vital Signs, click to edit/add: Last Vital Signs Temp 98.3 F 09/05/23 12:23 Pulse 82 09/05/23 12:23 Resp 20 09/05/23 12:23 BP 115/57 09/05/23 12:23 Pulse Ox 99 09/05/23 12:23 O2 Del Method Room Air 09/05/23 12:23 Course Vital Signs Vital signs: Vital Signs Temperature 98.3 F 09/05/23 12:23 Pulse Rate 82 09/05/23 12:23 Respiratory Rate 20 09/05/23 12:23 Blood Pressure 115/57 09/05/23 12:23 Pulse Oximetry 99 09/05/23 12:23 Oxygen Delivery Method Room Air 09/05/23 12:23 Temperature 98.3 F 09/05/23 12:23 Pulse Rate 82 09/05/23 12:23 Respiratory Rate 20 09/05/23 12:23 Blood Pressure 115/57 09/05/23 12:23 Pulse Oximetry 99 09/05/23 12:23 Oxygen Delivery Method Room Air 09/05/23 12:23 Medical Decision Making MDM Narrative Medical decision making narrative: Right now the patient will be treated with Augmentin and doxycycline she was instructed about the importance of follow-up with her primary care doctor as outpatient for further evaluation she is also to come back to us in case of fever or chills The patient presentation is mostly secondary to tinea capitis and there is some mild bacterial infection top of it but she need to follow-up with her primary care doctor for further evaluation for tinea capitis to the outpatient The patient is to follow up with primary care physician in next 2-3 days or to return to the emergency department should any of the signs or symptoms worsen or new symptoms develop. The patient agrees with the following Diagnosis and Treatment plan and the patient will be discharged home. Discharge Plan Discharge Chief Complaint: Skin/Abscess/Foreign Body Clinical Impression: Infection of scalp Patient Disposition: Home, Self-Care Time of Disposition Decision: 12:44 Condition: Good Prescriptions / Home Meds: New amoxicillin-pot clavulanate 875-125 mg tablet 1 tab PO Q12H Qty: 20 0RF doxycycline hyclate 100 mg tablet 100 mg PO BID 7 Days Qty: 14 0RF No Action metoprolol succinate 100 mg tablet extended release 24 hr 100 mg PO DAILY albuterol sulfate 90 mcg/actuation HFA aerosol inhaler 1 puff INHALATION Q6H PRN (Reason: SOB) [id number]-mfqrokdeifqpg-uvis [Fioricet] 50-300-40 mg capsule 1 cap PO Q4H PRN (Reason: headache) furosemide [Lasix] 40 mg tablet 40 mg PO BID Qty: 60 0RF fluoxetine 20 mg capsule 40 mg PO DAILY Qty: 0 0RF methocarbamol 500 mg tablet 500 mg PO Q8H PRN (Reason: muscle pain) Qty: 10 0RF cephalexin 500 mg capsule 500 mg PO BID 10 Days Qty: 20 0RF atorvastatin 80 mg tablet 80 mg PO DAILY trazodone 50 mg tablet 50 mg PO QPM isosorbide mononitrate 30 mg tablet extended release 24 hr 30 mg PO DAILY clonazepam 0.5 mg tablet 0.5 mg PO TID PRN (Reason: anxiety) omeprazole 40 mg capsule,delayed release(DR/EC) 40 mg PO DAILY levothyroxine 75 mcg tablet 75 mcg PO DAILY potassium chloride 20 mEq tablet,ER particles/crystals 20 meq PO DAILY ropinirole 2 mg tablet 2 mg PO TID warfarin 5 mg tablet 5 mg PO DAILY Patient Comments: 1.5 M,W,F, 1 tab other days nitroglycerin 0.4 mg tablet, sublingual 0.4 mg sublingual Q5M PRN (Reason: chest pain) baclofen 5 mg tablet 5 mg PO TID PRN (Reason: back spasm or pain) amiodarone [Pacerone] 200 mg Tablet 200 mg PO QD Qty: 30 0RF Instructions: Cellulitis (ED) Stand Alone Forms: Portal Instructions Referrals: Arjun Delacruz MD [Physician] - 1 week Physician,Non-Staff, [Primary Care Provider] - 1 week
--- OUTSIDE RECORDS SUMMARY | 2023-09-05 12:50 | XMS_ITS | CCD ---
Author Name Unknown Address [address] [place] [address] Organization [facility] Care Team Providers Care Legal Advisor Name Role Phone MAYRA, MARGARETH Admitting Unavailable MAYRA, MARGARETH Attending Unavailable ROBE ALONSO Primary Care Unavailable MAYRA, MARGARETH Admitting Unavailable MAYRA, MARGARETH Attending Unavailable ROBE ALONSO Primary Care Unavailable MAYRA, MARGARETH Admitting Unavailable MAYRA, MARGARETH Attending Unavailable ROBE ALONSO Primary Care Unavailable AGUILA VASQUEZ Attending UnavailROBE Marion Primary Care Unavailable JAMEEL VALENZUELA Attending UnavailROBE Espinal Primary Care Unavailable MAYRA, MARGARETH Admitting Unavailable MAYRA, MARGARETH Attending Unavailable ROBE ALONSO Primary Care Unavailable Darian Smiley Attending Provider Robe Alonso Primary Care Provider Robe Alonso Admit Provider Robe Alonso Attending Provider Darian Smiley Attending Provider Robe Alonso Primary Care Provider Robe Alonso Admit Provider Robe Alonso Attending Provider [phone] Unavailable Unavailable PROVIDER, UNKNOWN Attending Unavailable PROVIDER, UNKNOWN Admitting Unavailable PATIENT, SELF Referring Unavailable None, No PCP Unavailable Unavailable Robe Alonso Primary Care Provider Nadir Hoskins Unavailable Margareth Nunez Unavailable Violeta Chan MD Unavailable Violeta Chan MD Unavailable [phone] Jeane Dykes Unavailable DO Darian Smiley Attending Provider MD Robe Alonso Primary Care Provider MD Robe Alonso Attending Provider MD Robe Alonso Referring Provider [phone] DO Hira Lay [facility] MD Ken Segovia Admit Provider [phone] MD Ken Rizo Attending Provider [phone] Robe Alonso Primary Care Provider Nadir Hoskins Unavailable Margareth Nunez Unavailable Violeta Chan MD Unavailable Violeta Chan MD Unavailable DO Darian Smiley Attending Provider Shaikh Rojas Unavailable Robe Alonso Primary Care Provider Nadir Hoskins Unavailable [phone] Margareth Nunez MD Unavailable Robe Alonso Primary Care Provider Nadir Hoskins Unavailable [phone] Margareth Nunez MD Unavailable Violeta Chan MD Unavailable Violeta Chan MD Unavailable Cuevas DMD, Anju Unavailable SHAIKH Shawna ROJAS Admitting Unavailable SHAIKH Shawna ROJAS Attending Unavailable FAWWAD, ROY H Primary Care Unavailable FAWWAD, ROY H Primary Care Unavailable FAWWAD, ROY H Attending Unavailable FAWWAD, ROY H Admitting Unavailable FAWWAD, ROY H Attending Unavailable FAWWAD, ROY H Admitting Unavailable FAWWAD, ROY H Primary Care Unavailable FAWWAD, ROY H Consulting Unavailable FAWWAD, ROY H Attending Unavailable FAWWAD, ROY H Admitting Unavailable FAWWAD, ROY H Primary Care Unavailable FAWWAD, ROY H Admitting Unavailable FAWWAD, ROY H Attending Unavailable FAWWAD, ROY H Primary Care Unavailable DR JC BRAVO Unavailable FAWWAD, ROY H Consulting Unavailable FAWWAD, ROY H Admitting Unavailable FAWWAD, ROY H Attending Unavailable FAWWAD, ROY H Primary Care Unavailable FAWWAD, ROY H Consulting Unavailable FAWWAD, ROY H Attending Unavailable FAWWAD, ROY H Primary Care Unavailable FAWWAD, ROY H Admitting Unavailable FAWWAD, ROY H Attending Unavailable FAWWAD, ROY H Admitting Unavailable FAWWAD, ROY H Primary Care Unavailable FAWWAD, ROY H Attending Unavailable FAWWAD, ROY H Admitting Unavailable FAWWAD, ROY H Primary Care Unavailable FAWWAD, ROY H Primary Care Unavailable FAWWAD, ROY H Attending Unavailable FAWWAD, ROY H Admitting Unavailable FAWWAD, ROY H Primary Care Unavailable FAWWAD, ROY H Attending Unavailable FAWWAD, ROY H Admitting Unavailable FAWWAD, ROY H Admitting Unavailable FAWWAD, ROY H Attending Unavailable DR RAFA SALDIVAR Primary Care Unavailable FAWWAD, ROY H Primary Care Unavailable FAWWAD, ROY H Attending Unavailable FAWWAD, ROY H Admitting Unavailable FAWWAD, ROY H Attending Unavailable FAWWAD, ROY H Primary Care Unavailable FAWWAD, ROY H Admitting Unavailable FAWWAD, ROY H Primary Care Unavailable KRYSTYNA SANDRA Attending Unavailable KRYSTYNA SANDRA Admitting Unavailable FAUSTO GONCALVES Consulting Unavailable KRYSTYNA SANDRA Consulting Unavailable FAWWAD, ROY H Primary Care Unavailable JEAN CLAUDE GUZMAN Attending Unavailable SHELLY, DR JC Car Consulting Unavailable JEAN CLAUDE GUZMAN Admitting Unavailable JEAN CLAUDE GUZMAN Consulting Unavailable Tenzin Alejo Consulting Unavailable CORIE, DR Juan Miguel Gamez Consulting Unavailable CORIE, DR Juan Miguel Gamez Attending Unavailable CORIE, DR Juan Miguel Gamez Admitting Unavailable FAWWAD, ROY H Primary Care Unavailable SHELLY, DR JC Car Consulting Unavailable Russell, MsTarun Reed Attending Unavai lable Mayra, Dr. Margareth Llanes Attending Unavailab le Mayra, Dr. Margareth Llanes Referring Unavailab le Mayra, Dr. Margareth Llanes Attending Unavailab le Marya, Dr. Margareth Llanes Referring Unavailab le Gato, Dr. Nadir Ann Attending Unava ilable Nadir Hoskins DO Unavailable Violeta Chan MD Unavailable Violeta Chan MD Unavailable Arjun EPPS Attending Unavailable Arjun EPPS Attending Unavailable Amanda Grace Unavailable MD Margareth Nunez Attending Provider [phone] PETE Grace Primary Care Provider Amanda Grace Primary Care Unavailable Margareth Nunez Attending Unavailable Margareth Nunez Admitting Unavailable Shaikh Rojas MD Primary Care Provider [phone] Bianca MOLD SANDER-IRRIGATOR, Jameel E Unavailable Margareht Nunez MD Unavailable MARGARETH NUNEZ Referring Unavailable CRYSTAL, ROY Primary Care Unavailable MARGARETH NUNEZ Admitting Unavailable MARGARETH NUNEZ Attending Unavailable CRYSTAL ROY Primary Care Unavailable Unavailable Unavailable Unavailable Allergies Allergy Classification Reported Allergen(s) Allergy Type Date of Onset Reaction(s) Facility Adhesive Tape (1 source) Adhesive Tape Substance Allergy 11-24-19 [address] [facility] Ondansetron (1 source) Ondansetron Drug Allergy 11-24-[address] [facility] Opioid Agonists (2 sources) fentaNYL Drug Allergy 11-24-19 21 Palpitations, Unknown Reaction [facility] (20 sources) Adhesive Tape; 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: [adhesive tape] Propensity to adverse reactions 08-16-20 20 Unknown Reaction, Redness of Skin [facility] (20 sources) fentaNYL; 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: [fentanyl] Drug Allergy 09-21-19 20 [facility], [facility] (20 sources) Morphine; 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: [morphine] Drug Allergy 04-26-20 12 Vomiting, GI intolerance, Nausea/vomiting [facility] (10 sources) Ondansetron; 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: [ONDANSETRON] Drug Allergy 09-21-19 20 Agitated [facility] [employer] Repository (20 sources) erythromycin base; 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: [Erythromycin Base] Allergy to substance 07-08-20 04 Other: See Comments [facility] (20 sources) Erythromycin; 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: [erythromycin] Drug Allergy 06-05-20 02 Nausea Only, Unknown, [facility]iting [facility] (20 sources) levoFLOXacin; 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: [Levaquin] Drug Allergy 08-31-19 24 Other, Palpitations [facility] [employer] DO Work Phone: (20 sources) Ondansetron; 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: [Zofran] Drug Allergy [facility] Repository (20 sources) varenicline; 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: [Chantix TABS] Drug Allergy 08-31-19 24 Other, Unknown [facility] [employer] DO Work Phone: (20 sources) Adhesive Tape Propensity to adverse reactions to substance 07-08-20 12 Rash [facility] (20 sources) Ondansetron Drug Allergy 10-13-19 19 Intolerance, Other [facility] (20 sources) Latex Drug allergy Unknown [employer] Other (3 sources) Adhesive Tape-Silicones; 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: [ADHESIVE TAPE-SILICONES] Drug Allergy 08-31-19 24 Other [facility] (1 source) levoFLOXacin; 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: [LEVOFLOXACIN] Drug Allergy 08-31-19 24 [facility] (1 source) Ondansetron; 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: [ONDANSETRON HCL] Drug Allergy 08-31-19 24 [facility] Repository (1 source) varenicline; 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: [VARENICLINE] Drug Allergy 08-31-19 24 [facility] Medications Current Medications Medication Drug Class(es) Dates Sig (Normalized) Sig (Original) acetaminophen 300 mg / butalbital 50 mg / caffeine 40 mg oral capsule (20 sources) Barbiturate, Central Nervous System Stimulant, Methylxanthine Start: 07-19-2020 Butalbital-Aceta minophen-Caff (Fioricet) 50-300-40 mg capsule Active 1 CAP PO As Directed July 19, 2020 7:56am Start: 07-19-2020 take 1 capsule by mo uth twice daily Encwpuzgir-Graukroxqrywn-Ikog (Fioricet) 50-300-40 mg capsule Active 1 CAP PO Twice daily July 19, 2020 12:00am Start: 06-07-2020 End: 06-15-2020 take 1 tablet by mouth every eight hours Llumizgoyi-Jwrlobvkenuzs-Fgms Discontinu ed 1 TAB PO Q8H June 06, 2020 11:00pm June 15, 2020 10:49am Start: 04-26-2020 End: 06-07-2020 take 1 capsule by mouth every eight hours as needed Mrcednblja-Fdlknpefsoovl-Jiro (Fioricet) 50-300-40 mg capsule Discontinued 1 CAP PO Q8H April 25, 2020 11:00pm June 07, 2020 5:06pm TK ONE C PO Q 8 H PRN Start: 09-01-2019 End: 04-26-2020 take 1 tablet by mouth three times daily Jvptbujcmq-Pgbyaocfxddjx-Xblk Discontinu ed 1 TAB PO Three times daily September 01, 2019 12:00am April 26, 2020 1:48pm take 1 capsule by mo uth every four hours as needed nnyevunudi-nhdczclrfljyp-dbyt (Fioricet) 50-300-40 mg capsule Take 1 capsule by mouth every 4 hours if needed for headaches. 0 Active [id number] 200 actuat albuterol 0.09 mg/actuat metered dose inhaler (4 sources) beta2-Adrenergic Agonist Start: 07-20-2023 albut christine 90 mcg/actuation inhaler take 1 puff(s) by mo uth every four hours as needed Albuterol Sulfate HFA 108 (90 Base) MCG/ ACT INHALE ONE (1) PUFF BY MOUTH EVERY 4 HOURS NEEDED Inhalation for 30 Days Active take 1 puff(s) by mo uth every four hours as needed Albuterol Sulfate HFA 108 (90 Base) MCG/ ACT INHALE ONE (1) PUFF BY MOUTH EVERY 4 HOURS NEEDED Inhalation for 30 Days Active amiodarone hydrochloride 200 mg oral tablet (20 sources) Antiarrhythmic Start: 07-23-2023 take 1 tablet by mouth once daily amiodarone (Pacerone) 200 mg tablet Take 1 tablet (200 mg) by mouth once daily. 0 07/23/2023 Active Start: 11-16-2021 take 400 mg by mouth once daily in the morning Amiodarone Active 400 MG PO Every morning 60 November 15, 2021 11:00pm Start: 11-12-2021 End: 11-16-2021 Amiodarone (Pacerone) 200 mg tablet Discontinued 100 MG PO Twice daily November 11, 2021 11:13pm November 16, 2021 11:19am Start: 09-11-2019 End: 11-12-2021 take 200 mg by mouth once daily Amiodarone Discontinue d 200 MG PO Daily October 17, 2021 12:44pm November 11, 2021 11:13pm Start: 05-09-2018 End: 10-17-2021 take 1 tablet by mouth twice daily amiodarone (PACERONE) 200 mg tablet Take 1 tablet by mouth twice daily. 0 07/23/2020 Active take 1 tablet by augusto th every twenty-four hours Amiodarone HCl 400 MG 1 tablet Orally Once a day for 90 days Active Comment on above: Take 1 tablet by augusto th twice daily. Boost - (5 sources) Boost - as direc janis Orally Active cetirizine hydrochloride 10 mg oral tablet (20 sources) Histamine-1 Receptor Antagonist take 1 tablet by mouth once daily chlorhexidine gluconate 1.2 mg/ml mouthwash (1 source) Start: 0 take 15 mL by mouth twice daily chlorhexidine (PERIDEX) 0.12 % oral solution Take 15 mL by mouth 2 times daily. 1 Bottle 1 10/20/2019 Active escitalopram 20 mg oral tablet (20 sources) Serotonin Reuptake Inhibitor Start: 0 take 1 tablet by mouth once daily Escitalopram Oxalate (Lexapro) 20 mg tablet Active 20 MG PO Daily July 19, 2020 12:00am Start: 05-09-2018 End: 06-15-2020 take 20 mg by mouth once daily Escitalopram Oxalate Di scontinued 20 MG PO Daily June 06, 2020 11:00pm June 15, 2020 10:55am FLUoxetine 40 mg oral capsule (4 sources) Serotonin Reuptake Inhibitor Start: 07-13-2023 take 1 capsule by mouth once daily FLUoxetine (PROzac) 40 mg capsule Take 1 capsule (40 mg) by mouth once daily. 0 07/13/2023 Active levothyroxine sodium 0.075 mg oral tablet (4 sources) l-Thyroxine Start: 07-20-2023 take 1 tablet by mouth once daily before mealtime levothyroxine (Synthroid, Levoxyl) 75 mcg tablet Take 1 tablet (75 mcg) by mouth once daily in the morning. Take before meals. 0 07/20/2023 Active take 1 tablet by augusto th once daily in the morning Levothyroxine Sodium 75 MCG 1 tablet in the morning on an empty stomach Orally Once a day for 90 days Active LORazepam 0.5 mg oral tablet (6 sources) Benzodiazepine Start: 11-12-2021 take 1 tablet by mouth three times daily as needed LORazepam (Ativan) 0.5 mg tablet Take 1 tablet (0.5 mg) by mouth 3 times a day as needed. 0 07/01/2023 Active magnesium oxide 400 mg oral capsule (20 sources) Start: 06-15-2020 take 400 mg by mouth twice daily Magnesium Oxide Active 400 MG PO Twice daily June 14, 2020 11:00pm Start: 06-13-2020 take 1 tablet by augusto th twice daily magnesium oxide (MAG-OX) 400 mg (241.3 mg magnesium) tablet Take 1 tablet by mouth twice daily. 60 tablet 0 06/13/2020 Active Start: 05-09-2018 End: 04-26-2020 take 400 mg by mouth once daily Magnesium Oxide Discon tinued 400 MG PO Daily May 08, 2018 11:00pm April 26, 2020 1:56pm take 1 tablet by augusto every eight hours Comment on above: Take 1 tablet by augusto th twice daily. Multivitamin Adult - (20 sources) take 1 tablet by mouth once daily Multivitamin Adult - 1 tablet Orally Once a day centrum 50 and over Active take 1 tablet by mouth once jing y Multivitamin Adult - 1 tablet Orally Once a day Not-Taking take 1 tablet by mouth once jing y Multivitamin Adult - 1 tablet Orally Once a day Active Multivitamin With Folic Acid (Thera) 400 mcg Tablet (8 sources) Start: 06-07-2020 take 1 tablet by mouth once daily Multivitamin With Folic Acid (Thera) 400 mcg Tablet Active 1 TAB PO Daily June 07, 2020 6:00pm Start: 06-07-2020 take 1 tablet by augusto th once daily Multivitamin With Folic Acid (Thera) 400 mcg Tablet Active 1 TAB PO Daily June 07, 2020 5:00pm Start: 06-07-2020 End: 11-13-2021 take 1 tablet by mouth once daily Multivitamin With Folic Acid (Thera) 400 mcg Tablet Discontinued 1 TAB PO Daily June 06, 2020 11:00pm November 13, 2021 10:40am Start: 06-07-2020 End: 11-13-2021 take 1 tablet by mouth once daily Multivitamin With Folic Acid (Thera) 400 mcg Tablet Discontinued 1 TAB PO Daily June 07, 2020 12:00am November 13, 2021 11:40am perflutren lipid microsphere s 1.3 mL in NaCl (PF) 0.9% 10 mL injection (DEFINITY) (9 sources) Start: 05-21-2021 End: 08-20-2022 perflutren lipid microsphere s 1.3 mL in NaCl (PF) 0.9% 10 mL injection (DEFINITY) Start: 01-15-2021 End: 04-16-2022 perflutren lipid microsphere s 1.3 mL in NaCl (PF) 0.9% 10 mL injection (DEFINITY) Start: 12-17-2020 End: 03-18-2022 perflutren lipid microsphere s 1.3 mL in NaCl (PF) 0.9% 10 mL injection (DEFINITY) microencapsulated potassium chloride 20 meq extended release oral tablet (20 sources) Start: 09-02-2023 potassium chlo ride CR 20 mEq ER tablet Indications: Chronic systolic congestive heart failure (CMS/HCC) Take one tablet twice a day x 3 days then one tablet daily 90 tablet 3 09/02/2023 Active Start: 04-16-2022 take 1 tablet by augusto once daily Potassium Chloride Sarah ER 20 MEQ Oral Tablet Extended Release TAKE 1 TABLET DAILY. Quantity: 0 Refills: 0 Ordered: 16-Apr-2022 DO Start : 16-Apr-2022 Active Start: 10-30-2021 Potassium Chlo ride ER 10 MEQ Oral Tablet Extended Release Quantity: 10 Refills: 0 Ordered: 30-Oct-2021 DO Start : 30-Oct-2021 Complete Start: 10-30-2021 End: 11-13-2021 Potassium Chloride (Klor-Con 10) 10 mEq tablet extended release Active 10 MEQ PO Daily November 13, 2021 5:49pm Start: 11-23-2020 End: 10-14-2021 take 10 mEq by mouth twice daily Potassium Chloride Discontinued 10 MEQ PO Twice daily November 22, 2020 11:00pm October 14, 2021 12:11pm Start: 07-22-2020 End: 08-16-2020 take 10 mEq by mouth once daily Potassium Chloride Dis continued 10 MEQ PO Daily July 22, 2020 12:00am August 16, 2020 7:11pm Start: 06-15-2020 End: 07-19-2020 Potassium Chloride (Klor-Con M20) 20 mEq tablet,ER particles/crystals Discontinued 10 MEQ PO Three times daily June 15, 2020 10:46am July 19, 2020 7:55am Start: 06-07-2020 End: 06-15-2020 Potassium Chloride (Klor-Con M20) 20 mEq Tablet,Er Particles/Crystals Discontinued 20 MEQ PO Three times daily June 06, 2020 11:00pm June 15, 2020 10:46am Start: 05-09-2018 End: 06-07-2020 take 1 tablet by mouth three times daily Potassium Chloride (K-Tab) 20 mEq Tablet Extended Release Discontinued 20 MEQ PO Three times daily May 08, 2018 11:00pm June 07, 2020 5:06pm take 1 capsule by mo [facility] every twelve hours Potassium Chloride ER 10 MEQ 1 capsule with food Orally Twice a day Active Potassium Chlori de ER 20 MEQ Oral Tablet Extended Release TAKE 2 TALBET TWICE DAILY X 2 DAYS 5/3 AND 12/31/2021, THEN 2 TABLETS DAILY Quantity: 2 Refills: 0 Ordered: 30-Dec-2021 Jameel Mtz Active take 1 tablet by augusto th once daily Potassium Chloride ER 20 MEQ Oral Tablet Extended Release take 1 talet once daily Quantity: 0 Refills: 0 Ordered: 05-Dec-2021 DO Active rOPINIRole 2 mg oral tablet (20 sources) Nonergot Dopamine Agonist Start: 03-19-2021 take 1 tablet by mouth once daily at dinner, then take 2 tablets by mouth once daily at bedtime rOPINIRole (REQUIP) 0.25 mg tablet Take 1 tablet by mouth once daily at dinner and take 2 tablets by mouth once daily at bedtime 21 tablet 0 03/19/2021 Active Start: 11-25-2020 End: 10-14-2021 Ropinirole Discontinued 2 MG PO As Directed November 24, 2020 11:00pm October 14, 2021 11:05am Take 1 at supper with 2 at bedtime. Start: 06-15-2020 take 1 tablet by augusto th once daily at bedtime, then take 2 tablets by mouth at bedtime Ropinirole Active 0.75 MG PO Daily at bedtime June 14, 2020 11:00pm 1 TABLET AT DINNER AND 2 TABLETS AT HS Start: 04-26-2020 End: 06-15-2020 take 2 mg by mouth once daily Ropinirole Discontinued 2 MG PO Daily with supper June 06, 2020 11:00pm June 15, 2020 10:46am Start: 04-26-2020 End: 06-15-2020 take 4 mg by mouth once daily at bedtime Ropinirole Discontinued 4 MG PO Daily at bedtime June 06, 2020 11:00pm June 15, 2020 10:46am Start: 05-09-2018 End: 10-14-2021 take 1 tablet by mouth three times daily rOPINIRole (Requip) 2 mg tablet Take 1 tablet (2 mg) by mouth 3 times a day. 0 09/30/2021 Active take 3 tablets by mo [facility] at bedtime rOPINIRole HCl - 0.25 MG Oral Tablet take 3 tablets (75mg) at bedtime Quantity: 0 Refills: 0 Ordered: 28-Nov-2021 DO Active take 1 tablet by augusto twice daily rOPINIRole HCl - 2 MG Oral Tablet TAKE 1 TABLET TWICE DAILY. Quantity: 0 Refills: 0 Ordered: 20-Oct-2021 DO Active Comment on above: Take 1 tablet by [facility] once daily at dinner and take 2 tablets by mouth once daily at bedtime 125 ml sodium chloride 9 mg/ml prefilled syringe (9 sources) Start: 12-17-2020 End: 08-20-2022 sodium chloride 0.9 % (flush) 10 mL (BD POSIFLUSH) torsemide 20 mg oral tablet (20 sources) Loop Diuretic Start: 09-02-2023 torsemide (Demadex) 20 mg tablet Indications: Biventricular implantable cardioverter-defibrillator (ICD) in situ , Chronic systolic congestive heart failure (CMS/HCC) , Ischemic cardiomyopathy Take one tablet twice a day x 3 days then one tablet daily. 30 tablet 11 09/02/2023 Active Start: 10-13-2021 take 20 mg by mouth once daily Torsemide Active 20 MG PO Daily October 17, 2021 12:46pm Start: 10-13-2021 End: 10-17-2021 take 40 mg by mouth once daily Torsemide Discontinued 40 MG PO Daily October 13, 2021 12:00am October 17, 2021 12:48pm Start: 09-03-2021 End: 09-03-2022 take 2 tablets by mouth once daily torsemide (DEMADEX) 20 mg tablet Take 2 tablets by mouth once daily. 180 tablet 3 09/03/2021 Active Comment on above: Take 2 tablets by [facility] once daily. traZODone hydrochloride 50 mg oral tablet (20 sources) Serotonin Reuptake Inhibitor Start: take 50 mg by mouth once daily at bedtime Trazodone Active 50 MG PO Daily at bedtime October 17, 2021 12:00am Start: 10-14-2021 End: 10-17-2021 take 200 mg by mouth once daily at bedtime Trazodone Discontinued 200 MG PO Daily at bedtime October 14, 2021 12:00am October 17, 2021 12:48pm Start: 06-15-2020 End: 10-14-2021 take 200 mg by mouth once daily at bedtime Trazodone Discontinued 200 MG PO Daily at bedtime June 15, 2020 10:49am October 14, 2021 12:06pm Start: 06-07-2020 End: 06-15-2020 take 300 mg by mouth once daily at bedtime Trazodone Discontinued 300 MG PO Daily at bedtime June 06, 2020 11:00pm June 15, 2020 10:49am Start: 04-26-2020 End: 06-07-2020 Trazodone Discontinued 300 M G PO Daily at bedtime April 25, 2020 11:00pm June 07, 2020 5:06pm TK 2 TS PO QHS Start: 08-22-2019 trazodone 150 MG tablet Start: 05-09-2018 End: 04-26-2020 take 150 mg by mouth once daily at bedtime Trazodone Discontinued 150 MG PO Daily at bedtime May 08, 2018 11:00pm April 26, 2020 1:54pm take 2 tablets by mo ut every twenty-four hours traZODone HCl 100 MG 2 tablets Orally Once a day Active take 2 tablets by mo uth every twenty-four hours vancomycin 125 mg oral capsule (2 sources) Glycopeptide Antibacterial Start: 11-16-2021 take 125 mg by mouth every six hours Vancomycin Active 125 MG PO Q6H 26 03November 15, 2021 11:00pm warfarin sodium 2 mg oral tablet (20 sources) Vitamin K Antagonist Start: 07-27-2023 Warfarin Sodium 2 MG 1 tablet 2 days per week and 1.5 tablets 5 days per week Orally Once a day for 30 days M-W 2mg but all other days. 3mg dose Jun, Active Start: 11-13-2021 Warfarin ( oven) 5 mg tablet Active 7.5 MG PO Q48H November 12, 2021 11:00pm Start: 10-13-2021 End: 10-14-2021 Warfarin Discontinued 2.5 MG PO As Directed October 13, 2021 3:55pm October 14, 2021 12:25pm Take 3 tablets at bedtime starting November 26 then daily until directed otherwise by Coumadin clinic. Start: 11-25-2020 End: 10-13-2021 Warfarin Discontinued 2 MG P O As Directed November 24, 2020 11:00pm October 13, 2021 3:55pm Take 3 tablets at bedtime starting November 26 then daily until directed otherwise by Coumadin clinic. Start: 11-23-2020 take 1 tablet by augusto th once daily warfarin (COUMADIN) 5 mg tablet Take 1 tablet by mouth once daily. 90 tablet 1 01/15/2021 Active Start: 11-23-2020 Warfarin (Jant oven) 5 mg tablet Active 5 MG PO Q48H November 22, 2020 11:00pm Start: 07-19-2020 End: 08-17-2020 Warfarin Discontinued 0 .ROU TE .COMPLEX July 19, 2020 12:00am August 17, 2020 11:23am 5mg Wednesday,Wednesday and Wednesday. Start: 07-19-2020 End: 08-17-2020 Warfarin Discontinued 0 .ROU TE .COMPLEX July 19, 2020 12:00am August 17, 2020 11:23am 7.5mg Wednesday, Wednesday,Wednesday. Start: 06-15-2020 End: 06-15-2020 Warfarin Discontinued 0 .ROU TE .COMPLEX June 14, 2020 11:00pm June 15, 2020 6:37pm check with patient, tapering dose take 4 tablets by mouth once War farin Sodium 5 MG Oral Tablet as directed per [facility] Coumadin clinic Quantity: 0 Refills: 0 Ordered: 31-Dec-2021 DO Active Warfarin 2mg 2 m g as directed orally Active Warfarin Sodium 5 MG Oral Tablet as directed per [facility] Coumadin clinic Quantity: 0 Refills: 0 Ordered: 20-Oct-2021 DO Active Comment on above: Take 1 tablet by augusto th once daily. Completed/Discontinued Medications Medication Drug Class(es) Dates Sig (Normalized) Sig (Original) acetaminophen 325 mg oral tablet (8 sources) Start: 06-07-2020 End: 11-23-2020 take 2 tablets by mouth every four hours Acetaminophen (Tylenol) 325 mg tablet Discontinued 650 MG PO Q4H 1 June 06, 2020 11:00pm November 23, 2020 3:58pm acetaminophen 325 mg / HYDROcodone bitartrate 5 mg oral tablet (20 sources) Opioid Agonist Start: 06-07-2020 End: 07-19-2020 take 1.5 tablets by mouth three times daily Hydrocodone-Acetami nophen Discontinued 1.5 TAB PO Three times daily June 15, 2020 10:46am July 19, 2020 7:53am Start: 06-05-2020 End: 06-07-2020 take 1 tablet by mouth once daily Hydrocodone-Acetaminophen (Drifton) 5-325 mg Tablet Discontinued 1 TAB PO Daily June 04, 2020 11:00pm June 07, 2020 5:06pm amoxicillin 500 mg / clavulanate 125 mg oral tablet (8 sources) Penicillin-class Antibacterial Start: 09-01-2019 End: 04-26-2020 take 1 tablet by mouth three times daily Amoxicillin-Pot Clavulanate (Augmentin) 500-125 mg tablet Discontinued 1 TAB PO Three times daily September 01, 2019 12:00am April 26, 2020 1:47pm aspirin 81 mg chewable tablet (20 sources) Platelet Aggregation Inhibitor, Nonsteroidal Anti-inflammatory Drug Start: 03-20-2021 take 1 tablet by mouth once daily aspirin 81 mg chewable tablet Chew and swallow 1 tablet by mouth once daily. 30 tablet 0 03/20/2021 Active Start: 08-29-2019 End: 11-25-2020 take 81 mg by mouth once daily Aspirin Discontinued 81 MG PO Daily June 06, 2020 11:00pm November 25, 2020 5:28pm take 1 tablet by augusto th once daily aspirin 81 mg EC tablet Take 1 tablet (81 mg) by mouth once daily. 0 Active Comment on above: Chew and swallow 1 t ablet by mouth once daily. atorvastatin 80 mg oral tablet (20 sources) HMG-CoA Reductase Inhibitor Start: 2 End: 0 take 1 tablet by mouth once daily atorvastatin 80 mg tablet Take 1 tablet by mouth once daily. 30 tablet 2 07/18/2012 Active Comment on above: Take 1 tablet by augusto th once daily. baclofen 5 mg oral tablet (6 sources) gamma-Aminobutyric Acid-ergic Agonist Start: 2 take 1 tablet by mouth three times daily Baclofen 5 MG Oral Tablet TAKE 1 TABLET 3 times daily Quantity: 0 Refills: 0 Ordered: 16-Apr-2022 DO Start : 16-Apr-2022 Active benzonatate 100 mg oral capsule (8 sources) Non-narcotic Antitussive Start: 0 End: 0 take 200 mg by mouth three times daily Benzonatate Discontinued 200 MG PO Three times daily 0 June 14, 2020 11:00pm July 19, 2020 7:53am busPIRone hydrochloride 15 mg oral tablet (8 sources) Start: 0 End: 0 Buspirone Discontinued 15 MG PO Twice daily April 25, 2020 11:00pm April 26, 2020 2:20pm TK 1 T PO BID carvedilol 3.125 mg oral tablet (20 sources) alpha-Adrenergic Edward, beta-Adrenergic Edward Start: 2 End: 2 take 1 tablet by mouth twice daily Carvedilol (Coreg) 3.125 mg tablet Discontinued 3.125 MG PO Twice daily October 30, 2021 3:43pm November 16, 2021 11:19am Start: 09-01-2019 End: 10-17-2021 take 12.5 mg by mouth twice daily Carvedilol Discontinued 12.5 MG PO Twice daily June 06, 2020 11:00pm October 17, 2021 12:48pm Start: 05-09-2018 End: 09-01-2019 take 1 tablet by mouth twice daily Carvedilol (Coreg) 6.25 mg Tablet Discontinued 6.25 MG PO Twice daily May 08, 2018 11:00pm September 01, 2019 6:52pm cephalexin 500 mg oral capsule (5 sources) Cephalosporin Antibacterial Start: 11-25-2020 End: 10-14-2021 take 500 mg by mouth every eight hours Cephalexin Discontinued 500 MG PO Every 8 hours November 24, 2020 11:00pm October 14, 2021 11:45am start this evening clonazePAM 0.5 mg oral tablet (20 sources) Benzodiazepine Start: 08-29-2019 End: 11-12-2021 take 0.5 mg by mouth three times daily Clonazepam Discontinued 0.5 MG PO Three times daily June 06, 2020 11:00pm November 11, 2021 11:09pm KlonoPIN Wafer [address] 1 TABLET ON TONGUE AND ALLOW TO DISSOLVE Four TIMES DAILY. Quantity: 0 Refills: 0 Ordered: 24-Apr-2022 DO Active KlonoPIN Wafer [address] 1 TABLET ON TONGUE AND ALLOW TO DISSOLVE THREE TIMES DAILY. Quantity: 0 Refills: 0 Ordered: 05-Dec-2021 DO Active KlonoPIN Wafer [address] 1 TABLET ON TONGUE AND ALLOW TO DISSOLVE TWICE DAILY. Quantity: 0 Refills: 0 Ordered: 20-Oct-2021 DO Active Comment on above: Take 0.5 mg by mouth . 1 tablet During the day and 2 tablets at bedtime digoxin 0.125 mg oral tablet (20 sources) Cardiac Glycoside Start: 11-25-2020 End: 10-17-2021 take 125 ug by mouth once daily Digoxin Discontinued 125 MCG PO Daily November 24, 2020 11:00pm October 17, 2021 12:48pm take 1 tablet by mouth once jing y Digoxin 0.125 mg one tab orally daily Not-Taking 0.8 ml enoxaparin sodium 100 mg/ml prefilled syringe (8 sources) Low Molecular Weight Heparin Start: 06-15-2020 End: 06-15-2020 inject 80 mg by subcutaneous injection every twelve hours Enoxaparin Discontinued 80 MG SUBCUT Q12H June 14, 2020 11:00pm June 15, 2020 6:37pm esomeprazole 40 mg delayed release oral capsule (8 sources) Proton Pump Inhibitor Start: 05-09-2018 End: 09-01-2019 take 1 capsule by mouth twice daily Esomeprazole Magnesium (Nexium) 40 mg Capsule,Delayed Release(Dr/Ec) Discontinued 40 MG PO Twice daily May 08, 2018 11:00pm September 01, 2019 6:52pm ferrous sulfate 324 mg delayed release oral tablet (20 sources) Start: 11-25-2020 End: 10-14-2021 take 324 mg by mouth twice daily Ferrous Sulfate Discontinued 324 MG PO Twice daily 60 November 24, 2020 11:00pm October 14, 2021 12:14pm Start: 06-15-2020 End: 07-19-2020 take 324 mg by mouth twice daily Ferrous Sulfate Discontinued 324 MG PO Twice daily 0 June 14, 2020 11:00pm July 19, 2020 7:53am Start: 04-28-2020 End: 06-05-2020 take 324 mg by mouth twice daily Ferrous Sulfate Discontinued 324 MG PO Twice daily 0 April 27, 2020 11:00pm June 05, 2020 12:33am furosemide 20 mg oral tablet (10 sources) Loop Diuretic Start: 04-26-2020 End: 04-26-2020 Furosemide Discontinued TABLET April 25, 2020 11:00pm April 26, 2020 2:20pm take 1 tablet by mouth twice silvia ly Furosemide 40 MG TAKE 1 TABLET BY MOUTH TWICE DAILY for 30 Active 24 hr isosorbide mononitrate 30 mg extended release oral tablet (12 sources) Nitrate Vasodilator Start: 11-22-2021 take 1 tablet by mouth once daily Isosorbide Mononitrate ER 30 MG Oral Tablet Extended Release 24 Hour TAKE 1 TABLET DAILY. Quantity: 90 Refills: 3 Ordered: 24-Apr-2022 Margareth Nunez MD Start : 16-Apr-2022 Active Magnesium (18 sources) take 1 tablet by mouth twice daily Magnesium 400 MG Oral Tablet Take 1 tablet twice daily Quantity: 180 Refills: 3 Ordered: 20-Oct-2021 DO Active 24 hr memantine hydrochloride 28 mg extended release oral capsule (20 sources) [id number] te Receptor Antagonist Start: 09-07-2019 End: 10-14-2021 take 1 capsule by mouth once daily Memantine (Namenda Xr) 28 mg Capsule,Sprinkle,E r 24hr Discontinued 28 MG PO Daily June 06, 2020 11:00pm October 14, 2021 11:52am Start: 05-09-2018 End: 04-26-2020 take 4 capsules by mouth once daily Memantine (Namenda Xr) 7 mg Cap,Sprinkle,Er 24hr Dose Pack Discontinued 28 MG PO Daily with supper May 08, 2018 11:00pm April 26, 2020 1:50pm 24 hr metoprolol succinate 100 mg extended release oral tablet (20 sources) beta-Adrenergic Edward Start: 01-26-2023 take 1 tablet by mouth every twenty-four hours at bedtime Metoprolol Succinate ER 100 MG Oral Tablet Extended Release 24 Hour TAKE 1 TABLET BY MOUTH AT BEDTIME *NO MORE REFILLS, KEEP PENDING VISIT 03/21* Quantity: 30 Refills: 10 Ordered: 29-Mar-2023 Inna Malik Start : 26-Jan-2023 Active Start: 11-16-2021 take 1 tablet by augusto th once daily at bedtime Metoprolol Succinate ER 100 MG Oral Tablet Extended Release 24 Hour TAKE 1 TABLET BY MOUTH DAILY AT BEDTIME *EMERGENCY REFILL* Quantity: 30 Refills: 1 Ordered: 28-Jan-2023 Jameel Mtz Start : 26-Jan-2023 Active No more refills keep pending visit 03/21 take 1 tablet by augusto th at bedtime Metoprolol Succinate ER 100 MG Oral Tablet Extended Release 24 Hour TAKE 1 TABLET Bedtime Quantity: 90 Refills: 3 Ordered: 24-Apr-2022 Margareth uNnez MD Active metroNIDAZOLE 500 mg oral tablet (4 sources) Nitroimidazole Antimicrobial Start: 10-17-2021 metroNIDAZOLE 500 MG Oral Tablet Quantity: 8 Refills: 0 Ordered: 17-Oct-2021 DO Start : 17-Oct-2021 Complete Start: 10-17-2021 End: 10-30-2021 take 500 mg by mouth twice daily Metronidazole Discontinued 500 MG PO Twice daily 8 October 17, 2021 12:00am October 30, 2021 3:40pm Flagyl 250 MG TA BS TAKE 1 TABLET EVERY 6 HOURS DAILY. Quantity: 0 Refills: 0 Ordered: 20-Oct-2021 DO Active Multi Vitamin Oral Tablet (18 sources) take 1 tablet by mouth once daily Multi Vitamin Oral Tablet TAKE 1 TABLET DAILY. Quantity: 0 Refills: 0 Ordered: 20-Oct-2021 DO Active Multivitamin preparation (8 sources) Start: 04-26-2020 End: 06-07-2020 take 1 tablet by mouth once daily Multivitamin Discontinued 1 TAB PO Daily April 26, 2020 3:22pm June 07, 2020 6:06pm Start: 04-26-2020 End: 06-07-2020 take 1 tablet by mouth once daily Multivitamin Discontinued 1 TAB PO Daily April 26, 2020 2:22pm June 07, 2020 5:06pm Start: 04-26-2020 End: 06-07-2020 take 1 tablet by mouth once daily Multivitamin Discontinued 1 TAB PO Daily April 25, 2020 11:00pm June 07, 2020 5:06pm Start: 04-26-2020 End: 06-07-2020 take 1 tablet by mouth once daily Multivitamin Discontinued 1 TAB PO Daily April 26, 2020 12:00am June 07, 2020 6:06pm nitroglycerin 0.4 mg sublingual tablet (20 sources) Nitrate Vasodilator Start: 05-09-2018 End: 10-14-2021 Nitroglycerin Discontinued 0.4 MG SUBLINGUAL Every 5 minutes x 3 doses June 06, 2020 11:00pm October 14, 2021 12:15pm Nitroglycerin 0. 4 MG as directed Sublingual Active OLANZapine 5 mg oral tablet (20 sources) Atypical Antipsychotic Start: 04-26-2020 End: 11-13-2021 take 1 tablet by mouth once daily at bedtime OLANZapine (ZYPREXA) 5 mg tablet Take 5 mg by mouth daily at bedtime. 0 06/28/2020 Active Comment on above: Take 5 mg by mouth d aily at bedtime. omeprazole 20 mg delayed release oral capsule (20 sources) Proton Pump Inhibitor Start: 06-15-2020 End: 11-13-2021 take 40 mg by mouth once daily Omeprazole Discontinued 40 MG PO Daily June 15, 2020 10:46am November 13, 2021 5:47pm Start: 06-15-2020 take 20 mg by mouth twice daily Omeprazole Active 20 MG PO Twice daily June 15, 2020 10:46am Start: 06-07-2020 End: 06-15-2020 take 40 mg by mouth twice daily Omeprazole Discontinued 40 MG PO Twice daily June 06, 2020 11:00pm June 15, 2020 10:46am Start: 09-20-2019 take 40 mg by mouth once daily Omeprazole Active 40 MG PO Daily November 12, 2021 11:00pm Start: 08-29-2019 End: 06-07-2020 take 40 mg by mouth twice daily Omeprazole Discontinued 40 MG PO Twice daily August 29, 2019 12:00am June 07, 2020 5:06pm promethazine hydrochloride 25 mg oral tablet (4 sources) Phenothiazine Start: 10-09-2021 End: 10-17-2021 take 25 mg by mouth twice daily Promethazine Discontinued 25 MG PO Twice daily October 13, 2021 12:00am October 17, 2021 12:48pm rivaroxaban 20 mg oral tablet (9 sources) Factor Xa Inhibitor Start: 08-09-2019 End: 04-28-2020 take 1 tablet by mouth once daily Rivaroxaban (Xarelto) 20 mg tablet Discontinued 20 MG PO Daily August 29, 2019 12:00am April 28, 2020 1:04pm sacubitril 24 mg / valsartan 26 mg oral tablet (20 sources) Angiotensin 2 Receptor Edward Start: 09-01-2019 End: 01-17-2022 take 1 tablet by mouth twice daily sacubitril-valsart an (ENTRESTO) 24-26 mg tablet Take 1 tablet by mouth twice daily. 60 tablet 11 01/17/2021 Active Start: 08-29-2019 End: 09-01-2019 take 2 tablets by mouth once daily Sacubitril-Valsartan (Entresto) 24-26 mg tablet Discontinued 2 TAB PO Daily August 29, 2019 12:00am September 01, 2019 6:52pm Start: 07-04-2019 ENTRESTO 24-26 MG TABS tablet Comment on above: Take 1 tablet by augusto twice daily. spironolactone 25 mg oral tablet (20 sources) Aldosterone Antagonist Start: 11-26-19 End: 10-14-19 take 25 mg by mouth once daily Spironolactone Discontinued 25 MG PO Daily November 25, 2020 5:21pm October 14, 2021 12:13pm Start: 07-19-2020 End: 11-25-2020 take 12.5 mg by mouth once daily Spironolactone Discontinued 12.5 MG PO Daily July 19, 2020 12:00am November 25, 2020 5:22pm Start: 05-09-2018 End: 09-01-2019 take 1 tablet by mouth once daily Spironolactone (Aldactone) 25 mg Tablet Discontinued 25 MG PO Daily May 08, 2018 11:00pm September 01, 2019 6:52pm temazepam 30 mg oral capsule (20 sources) Benzodiazepine Start: 11-23-2020 End: 10-14-2021 take 30 mg by mouth at bedtime Temazepam Discontinued 30 MG PO Bedtime November 22, 2020 11:00pm October 14, 2021 12:07pm Start: 06-07-2020 End: 06-15-2020 take 30 mg by mouth once daily at bedtime Temazepam Discontinued 30 MG PO Daily at bedtime June 06, 2020 11:00pm June 15, 2020 10:52am Start: 04-26-2020 End: 06-07-2020 take 1 capsule by mouth once daily at bedtime Temazepam (Restoril) 30 mg capsule Discontinued 30 MG PO Daily at bedtime April 25, 2020 11:00pm June 07, 2020 5:06pm TK 1 C PO QD HS Start: 05-09-2018 End: 04-26-2020 take 1 capsule by mouth once daily at bedtime Temazepam (Restoril) 15 mg Capsule Discontinued 15 MG PO Daily at bedtime 0 September 01, 2019 6:38pm April 26, 2020 1:54pm Problems Active Problems Problem Classification Problem Date Documented Da te Episodic/Chronic Abdominal pain (2 sources) Finding of sensation of abdomen; 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: [Unspecified abdominal pain] 10-30-2021 Episodic Acute and unspecified renal failure (4 sources) Injury of kidney; 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: [Acute kidney failure, unspecified] Episodic Acute bronchitis (20 sources) Acute bronchitis; 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: [Acute bronchitis] Episodic Acute myocardial infarction (3 sources) Myocardial infarction; 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: [ST elevation (STEMI) myocardial infarction of unspecified site] Onset: 0 09-21-2019 Chronic Administrative/social admission (20 sources) Follow-up status; 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: [Other specified counseling] Episodic Anxiety disorders (6 sources) Other specified anxiety disorders; 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: [Generalized anxiety disorder] Onset: 2 09-02-2023 Chronic Asthma (20 sources) Unspecified asthma, uncomplicated; 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: [Exercise-induced asthma] Onset: 9 02-24-2012 Chronic Cardiac dysrhythmias (20 sources) Ventricular tachycardia; 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: [Paroxysmal atrial fibrillation] Onset: 2 Chronic Cardiac dysrhythmias (17 sources) Tachycardia; 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: [Palpitations] Episodic Chronic obstructive pulmonary disease and bronchiectasis (2 sources) Chronic obstructive lung disease; 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: [Chronic obstructive pulmonary disease, unspecified] 11-13-2021 Chronic Coagulation and hemorrhagic disorders (4 sources) Platelet count below reference range; 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: [Thrombocytopenia, unspecified] Chronic Complication of device; implant or graft (20 sources) Arteriosclerosis of coronary artery bypass graft; 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: [Coronary atherosclerosis of unspecified bypass graft] Onset: 4 08-31-2023 Chronic Conduction disorders (20 sources) Presence of automatic (implantable) cardiac defibrillator; 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: [Presence of cardiac pacemaker] Onset: 2 Resolved: 4 08-19-2020 Chronic Congestive heart failure; nonhypertensive (20 sources) Chronic systolic (congestive) heart failure; 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: [Congestive heart failure] Onset: 9 03-19-2021 Chronic Coronary atherosclerosis and other heart disease (20 sources) Old myocardial infarction; 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: [Atherosclerotic heart disease of [place] coronary artery without angina pectoris] Onset: 8 Chronic Coronary atherosclerosis and other heart disease (20 sources) Presence of aortocoronary bypass graft; 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: [Patient post percutaneous transluminal coronary angioplasty] Onset: 9 08-31-2023 Episodic Deficiency and other anemia (10 sources) Anemia; 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: [Anemia, unspecified] Onset: 4 11-23-2020 Episodic Deficiency and other anemia (3 sources) Anemia, unspecified; 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: [Anemia, unspecified] Episodic Deficiency and other anemia (5 sources) Iron deficiency anemia; 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: [Iron deficiency anemia, unspecified] 11-24-2020 Episodic Delirium, dementia, and amnestic and other cognitive disorders (6 sources) Dementia; 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: [Unspecified dementia without behavioral disturbance] Onset: 4 09-02-2023 Chronic Disorders of lipid metabolism (20 sources) Mixed hyperlipidemia; 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: [Hyperlipidemia, unspecified] Onset: 0 09-21-2019 Chronic E Codes: Fall (1 source) Fall on same level from slipping, tripping and stumbling without subsequent striking against object, initial encounter; 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: [FALL SAME LVL SLIP NO STRK OBJ INIT] Onset: 3 Episodic Epilepsy; convulsions (2 sources) Seizure disorder; 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: [Epilepsy, unspecified, not intractable, without status epilepticus] Onset: 4 09-02-2023 Chronic Esophageal disorders (5 sources) Gastroesophageal reflux disease; 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: [Gastro-esophageal reflux disease without esophagitis] Onset: 0 09-21-2019 Chronic Essential hypertension (20 sources) Essential (primary) hypertension; 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: [Essential hypertension] Onset: 0 03-19-2021 Chronic Fluid and electrolyte disorders (20 sources) Hypokalemia; 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: [Hypopotassemia] 10-14-2021 Episodic Fracture of upper limb (2 sources) Displaced fracture of greater tuberosity of right humerus, initial encounter for closed fracture; 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: [Other displaced fracture of upper end of right humerus, initial encounter for closed fracture] Onset: 3 Episodic Gastroduodenal ulcer (except hemorrhage) (1 source) Gastric ulcer, unspecified as acute or chronic, without hemorrhage or perforation Onset: 8 Chronic Headache; including migraine (20 sources) Migraine; 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: [Migraine, unspecified, not intractable, without status migrainosus] Onset: 3 07-24-2020 Chronic Heart valve disorders (20 sources) Rheumatic tricuspid insufficiency; 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: [Nonrheumatic mitral (valve) prolapse] Onset: 8 Chronic Hypertension with complications and secondary hypertension (1 source) Hypertensive heart disease with heart failure Onset: 9 Chronic Intestinal infection (2 sources) Clostridium difficile diarrhea; 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: [Enterocolitis due to Clostridium difficile, not specified as recurrent] 11-14-2021 Episodic Joint disorders and dislocations; trauma-related (2 sources) Derangement of right knee; 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: [Unspecified internal derangement of right knee] Onset: 3 09-02-2023 Chronic Malaise and fatigue (2 sources) Asthenia; 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: [Weakness] 10-30-2021 Episodic Mood disorders (20 sources) Depressive disorder; 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: [Depression] Onset: 0 08-19-2020 Chronic Nonspecific chest pain (16 sources) Chest pain; 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: [Chest pain, unspecified] 11-12-2021 Episodic Osteoarthritis (3 sources) Degenerative joint disease of thumb; 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: [Primary osteoarthritis, unspecified hand] Onset: 2 06-23-2017 Chronic Other aftercare (1 source) retirement (current) use of aspirin Onset: 9 Episodic Other aftercare (19 sources) Drug therapy finding; 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: [Long-term (current) use of other medications] Episodic Other aftercare (17 sources) Encounter for therapeutic drug level monitoring; 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: [Medication monitoring encounter Z51.81] Onset: 1 Resolved: 2 Episodic Other aftercare (1 source) security tester (current) use of anticoagulants; 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: [[facility] CURRNT USE 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] Onset: 3 Episodic Other aftercare (2 sources) Anticoagulant effect; 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: [retirement (current) use of anticoagulants] Episodic Other and ill-defined heart disease (1 source) Intracardiac thrombosis, not elsewhere classified Onset: 9 Chronic Other and ill-defined heart disease (1 source) Thrombosis of atrium, auricular appendage, 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 Onset: 8 Chronic Other and ill-defined heart disease (20 sources) Thrombus of left atrium; 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: [Other ill-defined heart diseases] Onset: 0 08-19-2020 Chronic Other circulatory disease (20 sources) History of cardiac arrhythmia; 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: [Personal history of other diseases of circulatory system] Onset: 4 08-31-2023 Episodic Other circulatory disease (5 sources) Low blood pressure; 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: [Hypotension, unspecified] 10-13-2021 Episodic Other hematologic conditions (7 sources) High troponin I level; 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: [Other specified abnormalities of plasma proteins] 10-13-2021 Episodic Other hereditary and degenerative nervous system conditions (4 sources) Restless legs; 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: [Restless legs syndrome] Onset: 4 09-02-2023 Chronic Other infections; including parasitic (2 sources) Infection by Trichomonas; 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: [Trichomoniasis, unspecified] 10-14-2021 Episodic Other nervous system disorders (3 sources) Carpal tunnel syndrome; 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: [Carpal tunnel syndrome, unspecified upper limb] Onset: 2 07-06-2002 Chronic Other nervous system disorders (2 sources) Chronic pain; 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: [Other chronic pain] Onset: 3 09-02-2023 Chronic Other non-traumatic joint disorders (3 sources) Pain in right shoulder; 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: [PAIN IN RIGHT SHOULDER] Onset: 3 Episodic Other nutritional; endocrine; and metabolic disorders (1 source) Overweight Onset: 9 Chronic Other nutritional; endocrine; and metabolic disorders (20 sources) Obese class I; 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: [Obesity, unspecified] Onset: 9 08-19-2020 Chronic Other nutritional; endocrine; and metabolic disorders (2 sources) Hypophosphatemia; 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: [Other disorders of phosphorus metabolism] 10-16-2021 Chronic Other nutritional; endocrine; and metabolic disorders (9 sources) Body mass index 25-29 - overweight; 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: [Body Mass Index 25.0-25.9, adult] Episodic Other nutritional; endocrine; and metabolic disorders (8 sources) Overweight in adulthood with body mass index of 25 or more but less than 30; 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: [Body Mass Index 25.0-25.9, adult] Episodic Kimberlee-; endo-; and myocarditis; cardiomyopathy (except that caused by tuberculosis or sexually transmitted disease) (20 sources) Endocarditis, valve unspecified; 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: [Heart valve disorder] Onset: 9 03-19-2021 Chronic Peripheral and visceral atherosclerosis (20 sources) Atherosclerosis of aorta; 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: [Renal artery stenosis] Onset: 8 08-31-2023 Chronic Phlebitis; thrombophlebitis and thromboembolism (1 source) Acute embolism and thrombosis of unspecified vein Onset: 8 Episodic Poisoning by other medications and drugs (4 sources) Poisoning by digoxin; 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: [Poisoning by cardiac-stimulant glycosides and drugs of similar action, accidental (unintentional), initial encounter] Episodic Pulmonary heart disease (20 sources) Pulmonary hypertension; 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: [Pulmonary hypertension, unspecified] Onset: 2 07-13-2012 Chronic Pulmonary heart disease (2 sources) H/O: pulmonary embolus; 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: [Personal history of pulmonary embolism] Episodic Residual codes; unclassified (2 sources) Insomnia; 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: [Insomnia, unspecified] Onset: 4 09-02-2023 Episodic Screening and history of mental health and substance abuse codes (20 sources) Personal history of nicotine dependence; 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: [Ex-smoker] Onset: 8 Episodic Comment on above: QUIT 02/2018; QUIT 02/2018 had res tarted then requit 08/2021; Substance-related disorders (20 sources) Nicotine dependence; 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: [Nicotine dependence, unspecified, uncomplicated] Onset: 3 08-25-2021 Chronic Thyroid disorders (3 sources) Hypothyroidism, unspecified; 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: [Acquired hypothyroidism] Onset: 8 Chronic Unclassified (1 source) Body mass index (BMI) 32.0-32.9, adult Onset: 9 Unclassified (1 source) security tester (current) use of anticoagulants Onset: 8 Unclassified (1 source) Other nonrheumatic aortic valve disorders Onset: 8 Unclassified (1 source) Athscl heart disease of [place]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 ang pctrs Onset: 9 Unclassified (1 source) Unspecified convulsions Onset: 9 Unclassified (1 source) security tester (current) use of antithrombotics/antipl atelets Onset: 8 Unclassified (1 source) Encntr for adjust and mgmt of automatic implntbl card defib Onset: 9 Unclassified (1 source) Procedure and treatment not carried out, unspecified reason Onset: 8 Unclassified (4 sources) Finding of cardiovascular device; 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: [Implantable cardioverter-defibrill ator (ICD) discharge] Unclassified (4 sources) Patient encounter status; 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: [Fitting or adjustment of cardiac pacemaker] Unclassified (3 sources) LOW BACK PAIN, UNSPECIFIED; 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: [LOW BACK PAIN, UNSPECIFIED] Onset: 3 Unclassified (1 source) Encounter for adjustment and management of automatic implantable cardiac defibrillator; 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: [Encounter for adjustment and management of automatic implantable cardiac defibrillator] Onset: 3 Past or Other Problems Problem Classification Problem Date Documented Date Episodic/Chronic Complication of device; implant or graft (20 sources) Dysfunction of implantable cardiac defibrillator lead; 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: [Breakdown (mechanical) of cardiac electrode, initial encounter] Onset: 07-24-2020 07-24-2020 Episodic Deficiency and other anemia (7 sources) Iron deficiency anemia, unspecified; 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: [Iron deficiency anemia, unspecified] Onset: 04-20-2022 Episodic Other aftercare (1 source) Other theatrical scenic designer (current) drug therapy; 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: [OTH [facility] CURRENT DRUG THERAPY] Onset: 04-20-2022 Episodic Other circulatory disease (1 source) Hypotension, unspecified; 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: [Hypotension, unspecified] Episodic Other hematologic conditions (3 sources) Other specified abnormalities of plasma proteins; 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: [Other abnormal blood chemistry] Episodic Other screening for suspected conditions (not mental disorders or infectious disease) (20 sources) Abnormal coagulation profile; 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: [Deviation of international normalized ratio from target range] Onset: 06-27-2018 Episodic Shock (5 sources) Shock; 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: [Shock, unspecified] Onset: 09-21-2019 10-14-2021 Episodic Superficial injury; contusion (2 sources) Contusion of foot; 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: [Contusion of unspecified foot, initial encounter] Onset: 01-21-2023 09-02-2023 Episodic Unclassified (1 source) LOW BACK PAIN, UNSPECIFIED; 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: [LOW BACK PAIN, UNSPECIFIED] Onset: 10-26-2022 Results Test Name Value Interpretation Reference Range Facility Cardiac Device Check - In Cl inicOrdered By: Margareth Nunez on 09-02-2023 [facility] Work Phone: Cardiac Device Check - In Cl inicon 09-02-2023 Radiology Study observation (narrative) [facility] Work Phone: CNPNon 08-03-2023 CNPN Telephone (EPSMN) ----- ESSENCE VINCENT ([id number]) 1970 F Date Time Provider Department 08/03/23 DAVID OSEI [facility] [place] During your visit today, we recorded the following information about you: Amanda Lisa RN 08/03/2023 5:40 PM Signed ----- Message from David Osei MD sent at 07/30/2023 2:50 PM EST ----- Regarding: RE: Generator Changeout Request Schedule gen change and opd with me > have not seen in years so need appointment > 1 week in advance of scheduled change out. ----- Message ----- From: Maria Glover RN Sent: 07/28/2023 11:08 AM EST To: Kirstin Kasper RN; David Osei MD Subject: Generator Changeout Request EPS Lab Request: Device Patient: Essence Vincent Requested by: Maria Glover RN Requesting Physician: David Osei MD Procedure Physician: David Osei MD Procedure Requested: ICD change CPT: 13425 Multi Lead Date of Last HANDP? N/A Indications / Dx for Procedure: VT Procedure Time Frame: 1 month Estimated length of case: 1 HOUR Device Company: [employer] Patient: No Type of Bed: SHORTSTAY (4-8 HRS) Medication to be stopped(please specify medication/timeframe): Amanda Xavier RN 08/03/2023 5:42 PM Signed Attempted to contact patient to schedule procedure. Patient's number listed is no longer in service. Emergency Contact (Eb) called and mailbox is full and unable to leave message. NAYLA Osuna Heather, RN 08/05/2023 2:59 PM Signed Left a message for daughter, Lizz (ROGER), offering the date of 09/30/[address] Osei. Awaiting a return call. Pt will need OPD, Device, Labs, CXR and EKG within 30 days of the procedure. NAYLA Neri Kathy A, RN 08/16/2023 4:08 PM Signed Attempted to contact patient without success. Patients' number is no longer working as is significant others. Message left on Lizz - ROGER - number that she does need to return call as soon as possible to confirm date. Number provided. Lakisha Mcneil RN 08/24/2023 1:34 PM Signed Again tried to contact patient, S.O., AND POA with same results as previous. Message left on ROGER's voicemail that she needs to return call GRIFFIN or the date would no longer be held for patient. Number provided. Lakisha Mcneil RN 08/27/2023 3:55 PM Signed Attempted to contact again with the same resulkts as previous. Unable to schedule at this time. Allergies As of Date: 08/03/2023 Noted Allergy Reaction ERYTHROMYCIN BASE 07/08/2004 14 - Other: See Comments Comments: vomitting MORPHINE 04/26/2012 11 - Vomiting Comments: Per patient, can tolerate as long as it is not a continuous drip TAPE (ADHESIVE TAPE (ROSINS)) 07/08/2012 2 - Rash Comments: blisters ZOFRAN (ONDANSETRON HCL (PF)) 10/13/2018 5 - Intolerance Comments: jittery Date Reviewed: 11/14/2021 Reviewed by: Cyndi Hairston RN - Fully Assessed Reason for Visit: Schedule Surgery [1330] Cmt: EPS- HOOK UP DRIVER-D Change Out Prescriptions as of 08/27/2023 - torsemide (DEMADEX) 20 mg tablet Take 2 tablets by mouth once daily. - rOPINIRole (REQUIP) 0.25 mg tablet Take 1 tablet by mouth once daily at dinner and take 2 tablets by mouth once daily at bedtime - aspirin 81 mg chewable tablet Chew and swallow 1 tablet by mouth once daily. - sacubitril-valsartan (ENTRESTO) 24-26 mg tablet Take 1 tablet by mouth twice daily. - warfarin (COUMADIN) 5 mg tablet Take 1 tablet by mouth once daily. - OLANZapine (ZYPREXA) 5 mg tablet Take 5 mg by mouth daily at bedtime. - amiodarone (PACERONE) 200 mg tablet Take 1 tablet by mouth twice daily. - magnesium oxide (MAG-OX) 400 mg (241.3 mg magnesium) tablet Take 1 tablet by mouth twice daily. - atorvastatin 80 mg tablet Take 1 tablet by mouth once daily. - clonazePAM 0.5 mg tablet Take 0.5 mg by mouth. 1 tablet During the day and 2 tablets at bedtime Meds Comments as of 08/27/2020: 08/27/20 The medications are managed by this patient by: PATIENT Jameel Mcmahon, PharmD asa LD 11-5-12 Problem List As Of Date 08/03/2023 Noted Resolved Urinary tract infection of [P39.3] 07/26/2004 07/23/2020 Fitting and adjustment of orthopedic device [Z4*04/29/2010 07/23/2020 CAD (coronary artery disease) [I25.10] Remote STEMI (1998) [I21.3] 07/23/2020 Cardiogenic shock (HCC) [R57.0] 07/23/2020 Heart failure, systolic, acute on chronic (HCC)* 07/23/2020 Heart failure, systolic and diastolic, chronic * MR (mitral regurgitation) [I34.0] 07/16/2012 Pulmonary hypertension [I27.20] Dual chamber HOOK UP DRIVER-D [Z95.810] 07/23/2020 Primary hypertension [I10] Nicotine use disorder [F17.200] Exercise-induced asthma [J45.990] Anemia [D64.9] 10/29/2011 07/23/2020 H/o GERD [K21.9] 07/23/2020 Migraines [G43.909] H/o Depression/Anxiety/Sleep disturbance [F32.* Preop testing [Z01.818] 07/08/2012 07/23/2020 SUMMARY (more content not included)... Normal [facility] CNPNon 07-28-2023 CNPN Telephone (CARDMN) ----- ESSENCE VINCENT ([id number]) 1970 F Date Time Provider Department 07/28/23 DAVID OSEI During your visit today, we recorded the following information about you: Maria Glover RN 07/28/2023 1:07 PM Addendum 07/28/23, 11:50 am: Patient's ICD has reached recommended replacement time and needs generator change out. Dr. Osei updated. Attempted to call patient and all emergency contacts, no answer with all numbers. Left voicemail with patient's daughter Lizz. 07/28/23 1:00 pm: Patient's daughter returned call, states she has little to no contact with Essence and does not know her updated phone number or address. Called number for Randolph (listed as spouse) that was found in recent OP visit in Epic note, left voicemail. Allergies As of Date: 07/28/2023 Noted Allergy Reaction ERYTHROMYCIN BASE 07/08/2004 14 - Other: See Comments Comments: vomitting MORPHINE 04/26/2012 11 - Vomiting Comments: Per patient, can tolerate as long as it is not a continuous drip TAPE (ADHESIVE TAPE (ROSINS)) 07/08/2012 2 - Rash Comments: blisters ZOFRAN (ONDANSETRON HCL (PF)) 10/13/2018 5 - Intolerance Comments: jittery Date Reviewed: 11/14/2021 Reviewed by: Cyndi Hairston - Fully Assessed Prescriptions as of 07/28/2023 - torsemide (DEMADEX) 20 mg tablet Take 2 tablets by mouth once daily. - rOPINIRole (REQUIP) 0.25 mg tablet Take 1 tablet by mouth once daily at dinner and take 2 tablets by mouth once daily at bedtime - aspirin 81 mg chewable tablet Chew and swallow 1 tablet by mouth once daily. - sacubitril-valsartan (ENTRESTO) 24-26 mg tablet Take 1 tablet by mouth twice daily. - warfarin (COUMADIN) 5 mg tablet Take 1 tablet by mouth once daily. - OLANZapine (ZYPREXA) 5 mg tablet Take 5 mg by mouth daily at bedtime. - amiodarone (PACERONE) 200 mg tablet Take 1 tablet by mouth twice daily. - magnesium oxide (MAG-OX) 400 mg (241.3 mg magnesium) tablet Take 1 tablet by mouth twice daily. - atorvastatin 80 mg tablet Take 1 tablet by mouth once daily. - clonazePAM 0.5 mg tablet Take 0.5 mg by mouth. 1 tablet During the day and 2 tablets at bedtime Meds Comments as of 08/27/2020: 08/27/20 The medications are managed by this patient by: PATIENT Jameel Mcmahon, PharmD asa LD 11-5- Problem List As Of Date 07/28/2023 Noted Resolved Urinary tract infection of [P39.3] 07/26/2004 07/23/2020 Fitting and adjustment of orthopedic device [Z4*04/29/2010 07/23/2020 CAD (coronary artery disease) [I25.10] Remote STEMI (1998) [I21.3] 07/23/2020 Cardiogenic shock (HCC) [R57.0] 07/23/2020 Heart failure, systolic, acute on chronic (HCC)* 07/23/2020 Heart failure, systolic and diastolic, chronic * MR (mitral regurgitation) [I34.0] 07/16/2012 Pulmonary hypertension [I27.20] Dual chamber HOOK UP DRIVER-D [Z95.810] 07/23/2020 Primary hypertension [I10] Nicotine use disorder [F17.200] Exercise-induced asthma [J45.990] Anemia [D64.9] 10/29/2011 07/23/2020 H/o GERD [K21.9] 07/23/2020 Migraines [G43.909] H/o Depression/Anxiety/Sleep disturbance [F32.* Preop testing [Z01.818] 07/08/2012 07/23/2020 SUMMARY [V999.95] 07/11/2012 07/23/2020 Pulmonary hypertension, moderate to severe (HCC*2012 Other acute postoperative pain [G89.18] 07/13/2012 07/16/2012 Pulmonary insuff [XUJ4084] 07/13/2012 07/23/2020 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 07/14/2012 Intravascular volume depletion [E86.1] 07/13/2012 07/14/2012 Fluid overload [E87.70] 07/14/2012 07/16/2012 Post-op Afib (s/p DCCV x 1) [I48.91] 07/14/2012 07/23/2020 Dyslipidemia, goal LDL below 70 [E78.5] 07/17/2012 07/23/2020 Cardiac resynchronization therapy defibrillator*07/19/2012 Obesity, Class I, BMI 30-34.9 [E66.9] 10/13/2018 VT (ventricular tachycardia) (HCC) [I47.20] 10/14/2018 Ventricular tachycardia (HCC) [I47.20] 06/08/2020 06/23/2020 Elevated TSH [R79.89] 06/09/2020 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, s*06/09/2020 06/23/2020 Paroxysmal atrial fibrillation (HCC) [I48.0] 06/11/2020 Valvular heart disease [I38] 06/11/2020 Acute on chronic systolic (congestive) heart fa*06/15/2020 07/23/2020 Thrombus of left atrial appendage [I51.3] 07/23/2020 Atrial tachycardia (HCC) [I47.19] 07/23/2020 Abnormal lead impedance of cardiac resynchroniz*07/24/2020 Acute decompensated heart failure (HCC) [I50.9] 03/11/2021 Encounter Status:Closed by MARIA GLOVER on 07/28/23 Normal [facility] ICD REMOTE CHECKon 3 AV Delay Adaptive Paced Minimum (ms) 350 ms [facility] AV Delay Adaptive Rate Maximum (bpm) 90 {beats}/min [facility] AV Delay Adaptive Rate Minimum (bpm) 75 {beats}/min [facility] AV Delay Adaptive Sensed Minimum (ms) 250 ms [facility] AV Delay Adaptive Status ENABLED [facility] AV Delay Paced (ms) 100 ms [facility] AV Delay Sensed (ms) 70 ms [facility] Battery Voltage 2.72 V [facility] Scott RA Pacing Amplitude (volts) 2 V [facility] Scott RA Pacing Polarity BI [facility] Scott RA Pacing Pulse Width (ms) 0.4 ms [facility] Scott RA Sensing Amplitude (mvolts) 0.3 mV [facility] Scott RA Sensing Blanking Period (ms) 150 ms [facility] Scott RA Sensing Polarity BI [facility] Scott RA Sensing Refractory Period (ms) 250 ms [facility] Scott RV Pacing Amplitude (volts) 2.25 V [facility] Scott RV Pacing Polarity BI [facility] Scott RV Pacing Pulse Width (ms) 0.4 ms [facility] Scott RV Sensing Amplitude (mvolts) 0.3 mV [facility] Scott RV Sensing Blanking Period (ms) 200 ms [facility] Scott RV Sensing Polarity BI [facility] Detection Configuration (Vent) 2 - Zone [facility] FastVT_Detection Interval 450 ms [facility] FastVT_Therapy Configuration 2 ATP(s) + 0 Shock(s) [facility] ICD AFIB DetectionStatus DISABLED [facility] ICD ATAF DetectionInterval ms 450 ms [facility] ICD ATAF DetectionStatus ENABLED [facility] ICD ATAF TherapyConfiguration 2 ATP(s) + 0 Shock(s) [facility] ICD FastVT DetectionStatus ENABLED [facility] ICD-ADLRATE_BPM 85 {beats}/min [facility] ICD-AMS EPISODES 133 {beats}/min [facility] ICD-ATP Episodes (Vent) 0 [facility] ICD-ATRIALFIBRILLATION 535 Cl [facility] ICD-ATRIALTACHYCARDIA 535 [facility] ICD-ATRIALTACHYCARDIA 18 [facility] ICD-ATRIALTACHYCARDIA 9 [facility] ICD-Counters Cleared Date 09/23/2016 [facility] ICD-Device Mfg MDT [facility] ICD-Fast Ventricular Tachycardia 9 [facility] ICD-LEADIMPEDANCEATRIA L 342 ohm [facility] ICD-Percent Pacing (Atrial) 76.76 % [facility] ICD-Percent Pacing (Vent) 95.69 % [facility] ICD-PMT Intervention ENABLED [facility] ICD-PVC Intervention ENABLED [facility] ICD-Rate Modulation Acceleration Reaction 30 s [facility] ICD-Rate Modulation Deceleration Exercise [facility] ICD-Rate Modulation Rogers 3 [facility] ICD-Rate Modulation Threshold MediumHigh [facility] ICD-Shocks Aborted (Vent) 0 [facility] HIO-[id number] 0 [facility] ICD-SHOCKSABORTED 0 [facility] ICD-SHOCKSDELIVEREDVEN TRICULAR 0 [facility] ICD-Ventricular Fibrillation 0 [facility] Implant Date 07/03/2005 [facility] Implant Date 11/30/2002 [facility] Lead Impedance (LV) 4047 ohm [facility] Lead Impedance (RV) 779 ohm [facility] Lead Impedance High Voltage 59 ohm [facility] Lead1 Mfg MDT [facility] Lead2 Mfg MDT [facility] Lead3 Mfg GDT [facility] Location LV [facility] Location RA [facility] Location RV [facility] Lower Rate (bpm) 80 {beats}/min [facility] LV PACING % 0 % [facility] Max Sensor Rate (bpm) 90 {beats}/min [facility] MDT_PROG_TACHY_ZONE_DE TECTIONS_STATUS ENABLED [facility] Model [id number] Viva XT HOOK UP DRIVER-D [facility] Model 4196 Attain Ability MRI SureScan [facility] Model 5076 CapSureFix Novus [facility] Model 0144 Endotak Endurance Rx [facility] Pacing Mode DDDR [facility] Serial Number [id number] [facility] Serial Number [id number] [facility] Serial Number [id number] [facility] Serial Number [id number] [facility] Test Charge Energy 18 J [facility] Test Charge Time 5.525 [facility] Therapy Status (Vent) Enabled [facility] Thresh RA Capture Amplitude (volts) 0.625 V [facility] Thresh RA Capture Duration (ms) 0.4 ms [facility] Thresh RA Sensing Amplitude (mvolts) 1.625 mV [facility] Thresh RV Capture Amplitude (VOLTS) 1 V [facility] Thresh RV Capture Duration (MS) 0.4 ms [facility] Thresh RV Sensing Amplitude (MVOLTS) 11.625 mV [facility] Tracking Rate (bpm) 90 {beats}/min [facility] VF Zone Detection Interval 450 ms [facility] VF Zone Therapy Configuration 2 ATP(s) + 0 Shock(s) [facility] No Panel Informationon 07-28 BLANK _ [facility] ICD-ATRIALTACHYCARDIA 0 [facility] ICD-Fast Ventricular Tachycardia 0 [facility] Implant Date 09/23/2016 [facility] ED Note-Physicianon 07-05-20 23 ED Note-Physician [id number] [facility] ED Note-Physician [id number] [facility] ED Note-Physician [id number]#[id number] [facility] Physician Referralon 023 Physician Referral [id number]:12 7 [facility] ICD REMOTE CHECKon 3 AV Delay Adaptive Paced Minimum (ms) 350 ms [facility] AV Delay Adaptive Rate Maximum (bpm) 90 {beats}/min [facility] AV Delay Adaptive Rate Minimum (bpm) 75 {beats}/min [facility] AV Delay Adaptive Sensed Minimum (ms) 250 ms [facility] AV Delay Adaptive Status ENABLED [facility] AV Delay Paced (ms) 100 ms [facility] AV Delay Sensed (ms) 70 ms [facility] Battery Voltage 2.77 V [facility] Scott RA Pacing Amplitude (volts) 2 V [facility] Scott RA Pacing Polarity BI [facility] Scott RA Pacing Pulse Width (ms) 0.4 ms [facility] Scott RA Sensing Amplitude (mvolts) 0.3 mV [facility] Scott RA Sensing Blanking Period (ms) 150 ms [facility] Scott RA Sensing Polarity BI [facility] Scott RA Sensing Refractory Period (ms) 250 ms [facility] Scott RV Pacing Amplitude (volts) 2.5 V [facility] Scott RV Pacing Polarity BI [facility] Scott RV Pacing Pulse Width (ms) 0.4 ms [facility] Scott RV Sensing Amplitude (mvolts) 0.3 mV [facility] Scott RV Sensing Blanking Period (ms) 200 ms [facility] Scott RV Sensing Polarity [facility] Detection Configuration (Vent) 2 - Zone [facility] FastVT_Detection Interval 450 ms [facility] FastVT_Therapy Configuration 2 ATP(s) + 0 Shock(s) [facility] ICD AFIB DetectionStatus DISABLED [facility] ICD ATAF DetectionInterval ms 450 ms [facility] ICD ATAF DetectionStatus ENABLED [facility] ICD ATAF TherapyConfiguration 2 ATP(s) + 0 Shock(s) [facility] ICD FastVT DetectionStatus ENABLED [facility] ICD-ADLRATE_BPM 85 {beats}/min [facility] ICD-AMS EPISODES 133 {beats}/min [facility] ICD-ATP Episodes (Vent) 0 [facility] ICD-ATRIALFIBRILLATION 10 Cl [facility] ICD-ATRIALTACHYCARDIA 10 [facility] ICD-Counters Cleared Date 09/23/2016 [facility] ICD-Device Sri GROSS [facility] ICD-LEADIMPEDANCEATRIA L 361 ohm [facility] ICD-Percent Pacing (Atrial) 50.68 % [facility] ICD-Percent Pacing (Vent) 87.63 % [facility] ICD-PMT Intervention ENABLED [facility] ICD-PVC Intervention ENABLED [facility] ICD-Rate Modulation Acceleration Reaction 30 s [facility] ICD-Rate Modulation Deceleration Exercise [facility] ICD-Rate Modulation Rogers 3 [facility] ICD-Rate Modulation Threshold MediumHigh [facility] ICD-Shocks Aborted (Vent) 0 [facility] OIC-[id number]-CTIEGSELE 0 [facility] ICD-SHOCKSABORTED 0 [facility] ICD-SHOCKSDELIVEREDVEN TRICULAR 0 [facility] ICD-Ventricular Fibrillation 0 [facility] Implant Date 07/03/2005 [facility] Implant Date 11/30/2002 [facility] Lead Impedance (LV) 4047 ohm [facility] Lead Impedance (RV) 779 ohm [facility] Lead Impedance High Voltage 61 ohm [facility] Lead1 Mfg MDT [facility] Lead2 Mfg MDT [facility] Lead3 Mfg GDT [facility] Location LV [facility] Location RA [facility] Location RV [facility] Lower Rate (bpm) 80 {beats}/min [facility] LV PACING % 0 % [facility] Max Sensor Rate (bpm) 90 {beats}/min [facility] RENATO_PROG_TACHY_ZONE_DE TECTIONS_STATUS ENABLED [facility] Model [id number] Viva XT HOOK UP DRIVER-D [facility] Model 4196 Attain Ability MRI SureScan [facility] Model 5076 CapSureFix Novus [facility] Model 0144 Endotak Endurance Rx [facility] Pacing Mode DDDR [facility] Serial Number [id number] [facility] Serial Number [id number] [facility] Serial Number [id number] [facility] Serial Number [id number] [facility] Test Charge Energy 18 J [facility] Test Charge Time 5.145 [facility] Therapy Status (Vent) Enabled [facility] Thresh RA Capture Amplitude (volts) 0.625 V [facility] Thresh RA Capture Duration (ms) 0.4 ms [facility] Thresh RA Sensing Amplitude (mvolts) 2.875 mV [facility] Thresh RV Capture Amplitude (VOLTS) 1 V [facility] Thresh RV Capture Duration (MS) 0.4 ms [facility] Thresh RV Sensing Amplitude (MVOLTS) 6.875 mV [facility] Tracking Rate (bpm) 90 {beats}/min C [facility] VF Zone Detection Interval 450 ms [facility] VF Zone Therapy Configuration 2 ATP(s) + 0 Shock(s) [facility] No Panel Informationon 05-06 BLANK _ [facility] ICD-ATRIALTACHYCARDIA 0 [facility] ICD-Fast Ventricular Tachycardia 0 [facility] Implant Date 09/23/2016 [facility] ICD REMOTE CHECKon 3 AV Delay Adaptive Paced Minimum (ms) 350 ms [facility] AV Delay Adaptive Rate Maximum (bpm) 90 {beats}/min [facility] AV Delay Adaptive Rate Minimum (bpm) 75 {beats}/min [facility] AV Delay Adaptive Sensed Minimum (ms) 250 ms [facility] AV Delay Adaptive Status ENABLED [facility] AV Delay Paced (ms) 100 ms [facility] AV Delay Sensed (ms) 70 ms [facility] Battery Voltage 2.77 V [facility] Scott RA Pacing Amplitude (volts) 2 V [facility] Scott RA Pacing Polarity BI [facility] Scott RA Pacing Pulse Width (ms) 0.4 ms [facility] Scott RA Sensing Amplitude (mvolts) 0.3 mV [facility] Scott RA Sensing Blanking Period (ms) 150 ms [facility] Scott RA Sensing Polarity BI [facility] Scott RA Sensing Refractory Period (ms) 250 ms [facility] Scott RV Pacing Amplitude (volts) 2.75 V [facility] Scott RV Pacing Polarity BI [facility] Scott RV Pacing Pulse Width (ms) 0.4 ms [facility] Scott RV Sensing Amplitude (mvolts) 0.3 mV [facility] Scott RV Sensing Blanking Period (ms) 200 ms [facility] Scott RV Sensing Polarity BI [facility] Detection Configuration (Vent) 2 - Zone [facility] FastVT_Detection Interval 450 ms [facility] FastVT_Therapy Configuration 2 ATP(s) + 0 Shock(s) [facility] ICD AFIB DetectionStatus DISABLED [facility] ICD ATAF DetectionInterval ms 450 ms [facility] ICD ATAF DetectionStatus ENABLED [facility] ICD ATAF TherapyConfiguration 2 ATP(s) + 0 Shock(s) [facility] ICD FastVT DetectionStatus ENABLED [facility] ICD-ADLRATE_BPM 85 {beats}/min [facility] ICD-AMS EPISODES 133 {beats}/min [facility] ICD-ATP Episodes (Vent) 0 [facility] ICD-ATRIALFIBRILLATION 4 Cl [facility] ICD-ATRIALTACHYCARDIA 4 [facility] [facility] ICD[facility]Counters Cleared Date 09/23/2016 [facility] ICD-Device Sri GROSS [facility] ICD-LEADIMPEDANCEATRIA L 342 ohm [facility] ICD-Percent Pacing (Atrial) 46.68 % [facility] ICD-Percent Pacing (Vent) 90.31 % [facility] ICD-PMT Intervention ENABLED [facility] ICD-PVC Intervention ENABLED [facility] ICD-Rate Modulation Acceleration Reaction 30 s [facility] ICD-Rate Modulation Deceleration Exercise [facility] ICD-Rate Modulation Rogers 3 [facility] ICD-Rate Modulation Threshold MediumHigh [facility] ICD-Shocks Aborted (Vent) 0 [facility] [id number] 0 [facility] ICD-SHOCKSABORTED 0 [facility] ICD-SHOCKSDELIVEREDVEN TRICULAR 0 [facility] ICD-Ventricular Fibrillation 0 [facility] Implant Date 07/03/2005 [facility] Implant Date 11/30/2002 [facility] Lead Impedance (LV) 4047 ohm [facility] Lead Impedance (RV) 760 ohm [facility] Lead Impedance High Voltage 64 ohm [facility] Lead1 Sri GROSS [facility] Lead2 Mfg MDT [facility] Lead3 Mfg GDT [facility] Location LV [facility] Location RA [facility] Location RV [facility] Lower Rate (bpm) 80 {beats}/min [facility] LV PACING % 0 % [facility] Max Sensor Rate (bpm) 90 {beats}/min [facility] MDT_PROG_TACHY_ZONE_DE TECTIONS_STATUS ENABLED [facility] Model [id number] Viva XT HOOK UP DRIVER-D [facility] Model 4196 Attain Ability MRI SureScan [facility] Model 5076 CapSureFix Novus [facility] Model 0144 Endotak Endurance Rx [facility] Pacing Mode DDDR [facility] Serial Number [id number] [facility] Serial Number [id number] [facility] Serial Number [id number] [facility] Serial Number [id number] [facility] Test Charge Energy 18 [facility] Test Charge Time 5.145 [facility] Therapy Status (Vent) Enabled [facility] Thresh RA Capture Amplitude (volts) 0.625 V [facility] Thresh RA Capture Duration (ms) 0.4 ms [facility] Thresh RA Sensing Amplitude (mvolts) 2.5 mV [facility] Thresh RV Capture Amplitude (VOLTS) 1.375 V [facility] Thresh RV Capture Duration (MS) 0.4 ms [facility] Thresh RV Sensing Amplitude (MVOLTS) 7.5 mV [facility] Tracking Rate (bpm) 90 {beats}/min C [facility] VF Zone Detection Interval 450 ms [facility] VF Zone Therapy Configuration 2 ATP(s) + 0 Shock(s) [facility] No Panel Informationon 04-22 BLANK _ [facility] ICD-ATRIALTACHYCARDIA 0 [facility] ICD-Fast Ventricular Tachycardia 0 [facility] Implant Date 09/23/2016 [facility] ICD REMOTE CHECKon 3 AV Delay Adaptive Paced Minimum (ms) 350 ms [facility] AV Delay Adaptive Rate Maximum (bpm) 90 {beats}/min [facility] AV Delay Adaptive Rate Minimum (bpm) 75 {beats}/min [facility] AV Delay Adaptive Sensed Minimum (ms) 250 ms [facility] AV Delay Adaptive Status ENABLED [facility] AV Delay Paced (ms) 100 ms [facility] AV Delay Sensed (ms) 70 ms [facility] Battery Voltage 2.78 V [facility] Scott RA Pacing Amplitude (volts) 2 V [facility] Scott RA Pacing Polarity BI [facility] Scott RA Pacing Pulse Width (ms) 0.4 ms [facility] Scott RA Sensing Amplitude (mvolts) 0.3 mV [facility] Scott RA Sensing Blanking Period (ms) 150 ms [facility] Scott RA Sensing Polarity BI [facility] Scott RA Sensing Refractory Period (ms) 250 ms [facility] Scott RV Pacing Amplitude (volts) 3 V [facility] Scott RV Pacing Polarity BI [facility] Scott RV Pacing Pulse Width (ms) 0.4 ms [facility] Scott RV Sensing Amplitude (mvolts) 0.3 mV [facility] Scott RV Sensing Blanking Period (ms) 200 ms [facility] Scott RV Sensing Polarity BI [facility] Detection Configuration (Vent) 2 - Zone [facility] FastVT_Detection Interval 450 ms [facility] FastVT_Therapy Configuration 2 ATP(s) + 0 Shock(s) [facility] ICD AFIB DetectionStatus DISABLED [facility] ICD ATAF DetectionInterval ms 450 ms [facility] ICD ATAF DetectionStatus ENABLED [facility] ICD ATAF TherapyConfiguration 2 ATP(s) + 0 Shock(s) [facility] ICD FastVT DetectionStatus ENABLED [facility] ICD-ADLRATE_BPM 85 {beats}/min [facility] ICD-AMS EPISODES 133 {beats}/min [facility] ICD-ATP Episodes (Vent) 0 [facility] ICD-ATRIALFIBRILLATION 0 [facility] ICD-Counters Cleared Date 09/23/2016 [facility] ICD-Device Mfg MDT [facility] ICD-LEADIMPEDANCEATRIA L 342 ohm [facility] ICD-Percent Pacing (Atrial) 44.86 % [facility] ICD-Percent Pacing (Vent) 83.22 % [facility] ICD-PMT Intervention ENABLED [facility] ICD-PVC Intervention ENABLED [facility] ICD-Rate Modulation Acceleration Reaction 30 s [facility] ICD-Rate Modulation Deceleration Exercise [facility] ICD-Rate Modulation Rogers 3 [facility] ICD-Rate Modulation Threshold MediumHigh [facility] ICD-Shocks Aborted (Vent) 0 [facility] [id number] 0 [facility] ICD-SHOCKSABORTED 0 [facility] ICD-SHOCKSDELIVEREDVEN TRICULAR 0 [facility] ICD-Ventricular Fibrillation 0 [facility] Implant Date 07/03/2005 [facility] Implant Date 11/30/2002 [facility] Lead Impedance (LV) 4047 ohm [facility] Lead Impedance (RV) 779 ohm [facility] Lead Impedance High Voltage 61 ohm [facility] Lead1 Mfg MDT [facility] Lead2 Mfg MDT [facility] Lead3 Mfg GDT [facility] Location LV [facility] Location RA [facility] Location RV [facility] Lower Rate (bpm) 80 {beats}/min [facility] LV PACING % 0 % [facility] Max Sensor Rate (bpm) 90 {beats}/min [facility] MDT_PROG_TACHY_ZONE_DE TECTIONS_STATUS ENABLED [facility] Model [id number] Viva XT HOOK UP DRIVER-D [facility] Model 4196 Attain Ability MRI SureScan [facility] Model 5076 CapSureFix Novus [facility] Model 0144 Endotak Endurance Rx [facility] Pacing Mode DDDR [facility] Serial Number [id number] [facility] Serial Number [id number] [facility] Serial Number [id number] [facility] Serial Number [id number] [facility] Test Charge Energy 18 J [facility] Test Charge Time 5.145 [facility] Therapy Status (Vent) Enabled [facility] Thresh RA Capture Amplitude (volts) 0.625 V [facility] Thresh RA Capture Duration (ms) 0.4 ms [facility] Thresh RA Sensing Amplitude (mvolts) 2 mV [facility] Thresh RV Capture Amplitude (VOLTS) 1.125 V [facility] Thresh RV Capture Duration (MS) 0.4 ms [facility] Thresh RV Sensing Amplitude (MVOLTS) 9.25 mV [facility] Tracking Rate (bpm) 90 {beats}/min C [facility] VF Zone Detection Interval 450 ms [facility] VF Zone Therapy Configuration 2 ATP(s) + 0 Shock(s) [facility] AV Delay Adaptive Paced Minimum (ms) 350 ms [facility] AV Delay Adaptive Rate Maximum (bpm) 90 {beats}/min [facility] AV Delay Adaptive Rate Minimum (bpm) 75 {beats}/min [facility] AV Delay Adaptive Sensed Minimum (ms) 250 ms [facility] AV Delay Adaptive Status ENABLED [facility] AV Delay Paced (ms) 100 ms [facility] AV Delay Sensed (ms) 70 ms [facility] Battery Voltage 2.78 V [facility] Scott RA Pacing Amplitude (volts) 2 V [facility] Scott RA Pacing Polarity BI [facility] Scott RA Pacing Pulse Width (ms) 0.4 ms [facility] Scott RA Sensing Amplitude (mvolts) 0.3 mV [facility] Scott RA Sensing Blanking Period (ms) 150 ms [facility] Scott RA Sensing Polarity BI [facility] Scott RA Sensing Refractory Period (ms) 250 ms [facility] Scott RV Pacing Amplitude (volts) 3 V [facility] Scott RV Pacing Polarity BI [facility] Scott RV Pacing Pulse Width (ms) 0.4 ms [facility] Scott RV Sensing Amplitude (mvolts) 0.3 mV [facility] Scott RV Sensing Blanking Period (ms) 200 ms [facility] Scott RV Sensing Polarity BI [facility] Detection Configuration (Vent) 2 - Zone [facility] FastVT_Detection Interval 450 ms [facility] FastVT_Therapy Configuration 2 ATP(s) + 0 Shock(s) [facility] ICD AFIB DetectionStatus DISABLED [facility] ICD ATAF DetectionInterval ms 450 ms [facility] ICD ATAF DetectionStatus ENABLED [facility] ICD ATAF TherapyConfiguration 2 ATP(s) + 0 Shock(s) [facility] ICD FastVT DetectionStatus ENABLED [facility] ICD-ADLRATE_BPM 85 {beats}/min [facility] ICD-AMS EPISODES 133 {beats}/min [facility] ICD-ATP Episodes (Vent) 0 [facility] ICD-ATRIALFIBRILLATION 0 [facility] ICD-Counters Cleared Date 09/23/2016 [facility] ICD-Device Mfg MDT [facility] ICD-LEADIMPEDANCEATRIA L 342 ohm [facility] ICD-Percent Pacing (Atrial) 80.04 % [facility] ICD-Percent Pacing (Vent) 89.35 % [facility] ICD-PMT Intervention ENABLED [facility] ICD-PVC Intervention ENABLED [facility] ICD-Rate Modulation Acceleration Reaction 30 s [facility] ICD-Rate Modulation Deceleration Exercise [facility] ICD-Rate Modulation Rogers 3 [facility] ICD-Rate Modulation Threshold MediumHigh [facility] ICD-Shocks Aborted (Vent) 0 [facility] [id number] 0 [facility] ICD-SHOCKSABORTED 0 [facility] ICD-SHOCKSDELIVEREDVEN TRICULAR 0 [facility] ICD-Ventricular Fibrillation 0 [facility] Implant Date 07/03/2005 [facility] Implant Date 11/30/2002 [facility] Lead Impedance (LV) 4047 ohm [facility] Lead Impedance (RV) 760 ohm [facility] Lead Impedance High Voltage 63 ohm [facility] Lead1 Mfg MDT [facility] Lead2 Mfg MDT [facility] Lead3 Mfg GDT [facility] Location LV [facility] Location RA [facility] Location RV [facility] Lower Rate (bpm) 80 {beats}/min [facility] LV PACING % 0 % [facility] Max Sensor Rate (bpm) 90 {beats}/min [facility] MDT_PROG_TACHY_ZONE_DE TECTIONS_STATUS ENABLED [facility] Model [id number] Viva XT HOOK UP DRIVER-D [facility] Model 4196 Attain Ability MRI SureScan [facility] Model 5076 CapSureFix Novus [facility] Model 0144 Endotak Endurance Rx [facility] Pacing Mode DDDR [facility] Serial Number [id number] [facility] Serial Number [id number] [facility] Serial Number [id number] [facility] Serial Number [id number] [facility] Test Charge Energy 18 J [facility] Test Charge Time 5.145 [facility] Therapy Status (Vent) Enabled [facility] Thresh RA Capture Amplitude (volts) 0.625 V [facility] Thresh RA Capture Duration (ms) 0.4 ms [facility] Thresh RA Sensing Amplitude (mvolts) 2.375 mV [facility] Thresh RV Capture Amplitude (VOLTS) 1.125 V [facility] Thresh RV Capture Duration (MS) 0.4 ms [facility] Thresh RV Sensing Amplitude (MVOLTS) 8.75 mV [facility] Tracking Rate (bpm) 90 {beats}/min [facility] VF Zone Detection Interval 450 ms [facility] VF Zone Therapy Configuration 2 ATP(s) + 0 Shock(s) [facility] No Panel Informationon 04-09 [facility] _ [facility] ICD-ATRIALTACHYCARDIA 0 [facility] ICD-Fast Ventricular Tachycardia 0 [facility] Implant Date 09/23/2016 [facility] BLANK _ [facility] ICD-ATRIALTACHYCARDIA 0 [facility] ICD-Fast Ventricular Tachycardia 0 [facility] Implant Date 09/23/2016 [facility] ICD REMOTE CHECKon 07-31-202 3 AV Delay Adaptive Paced Minimum (ms) 350 ms [facility] AV Delay Adaptive Rate Maximum (bpm) 90 {beats}/min [facility] AV Delay Adaptive Rate Minimum (bpm) 75 {beats}/min [facility] AV Delay Adaptive Sensed Minimum (ms) 250 ms [facility] AV Delay Adaptive Status ENABLED [facility] AV Delay Paced (ms) 100 ms [facility] AV Delay Sensed (ms) 70 ms [facility] Battery Voltage 2.79 V [facility] Scott RA Pacing Amplitude (volts) 2 V [facility] Scott RA Pacing Polarity BI [facility] Scott RA Pacing Pulse Width (ms) 0.4 ms [facility] Scott RA Sensing Amplitude (mvolts) 0.3 mV [facility] Scott RA Sensing Blanking Period (ms) 150 ms [facility] Scott RA Sensing Polarity BI [facility] Scott RA Sensing Refractory Period (ms) 250 ms [facility] Scott RV Pacing Amplitude (volts) 3 V [facility] Scott RV Pacing Polarity BI [facility] Scott RV Pacing Pulse Width (ms) 0.4 ms [facility] Scott RV Sensing Amplitude (mvolts) 0.3 mV [facility] Scott RV Sensing Blanking Period (ms) 200 ms [facility] Scott RV Sensing Polarity BI [facility] Detection Configuration (Vent) 2 - Zone [facility] FastVT_Detection Interval 450 ms [facility] FastVT_Therapy Configuration 2 ATP(s) + 0 Shock(s) [facility] ICD AFIB DetectionStatus DISABLED [facility] ICD ATAF DetectionInterval ms 450 ms [facility] ICD ATAF DetectionStatus ENABLED [facility] ICD ATAF TherapyConfiguration 2 ATP(s) + 0 Shock(s) [facility] ICD FastVT DetectionStatus ENABLED [facility] ICD-ADLRATE_BPM 85 {beats}/min [facility] ICD-AMS EPISODES 133 {beats}/min [facility] ICD-ATP Episodes (Vent) 0 [facility] ICD-ATRIALFIBRILLATION 0 [facility] ICD-Counters Cleared Date 09/23/2016 [facility] ICD-Device Mfg MDT [facility] ICD-LEADIMPEDANCEATRIA L 342 ohm [facility] ICD-Percent Pacing (Atrial) 81.31 % [facility] ICD-Percent Pacing (Vent) 99.41 % [facility] ICD-PMT Intervention ENABLED [facility] ICD-PVC Intervention ENABLED [facility] ICD-Rate Modulation Acceleration Reaction 30 s [facility] ICD-Rate Modulation Deceleration Exercise [facility] ICD-Rate Modulation Rogers 3 [facility] ICD-Rate Modulation Threshold MediumHigh [facility] ICD-Shocks Aborted (Vent) 0 [facility] [id number] 0 [facility] ICD-SHOCKSABORTED 0 [facility] ICD-SHOCKSDELIVEREDVEN TRICULAR 0 [facility] ICD-Ventricular Fibrillation 0 [facility] Implant Date 07/03/2005 [facility] Implant Date 11/30/2002 [facility] Lead Impedance (LV) 4047 ohm [facility] Lead Impedance (RV) 722 ohm [facility] Lead Impedance High Voltage 61 ohm [facility] Lead1 Mfg MDT [facility] Lead2 Mfg MDT [facility] Lead3 Mfg GDT [facility] Location LV [facility] Location RA [facility] Location RV [facility] Lower Rate (bpm) 80 {beats}/min [facility] LV PACING % 0 % [facility] Max Sensor Rate (bpm) 90 {beats}/min [facility] MDT_PROG_TACHY_ZONE_DE TECTIONS_STATUS ENABLED [facility] Model [id number] Viva XT HOOK UP DRIVER-D [facility] Model 4196 Attain Ability MRI SureScan [facility] Model 5076 CapSureFix Novus [facility] Model 0144 Endotak Endurance Rx [facility] Pacing Mode DDDR [facility] Serial Number [id number] [facility] Serial Number [id number] [facility] Serial Number [id number] [facility] Serial Number [id number] [facility] Test Charge Energy 18 J [facility] Test Charge Time 5.145 [facility] Therapy Status (Vent) Enabled [facility] Thresh RA Capture Amplitude (volts) 0.625 V [facility] Thresh RA Capture Duration (ms) 0.4 ms [facility] Thresh RA Sensing Amplitude (mvolts) 3 mV [facility] Thresh RV Capture Amplitude (VOLTS) 1.25 V [facility] Thresh RV Capture Duration (MS) 0.4 ms [facility] Thresh RV Sensing Amplitude (MVOLTS) 8.75 mV [facility] Tracking Rate (bpm) 90 {beats}/min C [facility] VF Zone Detection Interval 450 ms [facility] VF Zone Therapy Configuration 2 ATP(s) + 0 Shock(s) [facility] AV Delay Adaptive Paced Minimum (ms) 350 ms [facility] AV Delay Adaptive Rate Maximum (bpm) 90 {beats}/min [facility] AV Delay Adaptive Rate Minimum (bpm) 75 {beats}/min [facility] AV Delay Adaptive Sensed Minimum (ms) 250 ms [facility] AV Delay Adaptive Status ENABLED [facility] AV Delay Paced (ms) 100 ms [facility] AV Delay Sensed (ms) 70 ms [facility] Battery Voltage 2.79 V [facility] Scott RA Pacing Amplitude (volts) 2 V [facility] Scott RA Pacing Polarity BI [facility] Scott RA Pacing Pulse Width (ms) 0.4 ms [facility] Scott RA Sensing Amplitude (mvolts) 0.3 mV [facility] Scott RA Sensing Blanking Period (ms) 150 ms [facility] Scott RA Sensing Polarity BI [facility] Scott RA Sensing Refractory Period (ms) 250 ms [facility] Scott RV Pacing Amplitude (volts) 2.75 V [facility] Scott RV Pacing Polarity BI [facility] Scott RV Pacing Pulse Width (ms) 0.4 ms [facility] Scott RV Sensing Amplitude (mvolts) 0.3 mV [facility] Scott RV Sensing Blanking Period (ms) 200 ms [facility] Scott RV Sensing Polarity BI [facility] Detection Configuration (Vent) 2 - Zone [facility] FastVT_Detection Interval 450 ms [facility] FastVT_Therapy Configuration 2 ATP(s) + 0 Shock(s) [facility] ICD AFIB DetectionStatus DISABLED [facility] ICD ATAF DetectionInterval ms 450 ms [facility] ICD ATAF DetectionStatus ENABLED [facility] ICD ATAF TherapyConfiguration 2 ATP(s) + 0 Shock(s) [facility] ICD FastVT DetectionStatus ENABLED [facility] ICD-ADLRATE_BPM 85 {beats}/min [facility] ICD-AMS EPISODES 133 {beats}/min [facility] ICD-ATP Episodes (Vent) 0 [facility] ICD-ATRIALFIBRILLATION 0 [facility] ICD-Counters Cleared Date 09/23/2016 [facility] ICD-Device Mfg MDT [facility] ICD-LEADIMPEDANCEATRIA L 342 ohm [facility] ICD-Percent Pacing (Atrial) 99.2 % [facility] ICD-Percent Pacing (Vent) 99.87 % [facility] ICD-PMT Intervention ENABLED [facility] ICD-PVC Intervention ENABLED [facility] ICD-Rate Modulation Acceleration Reaction 30 s [facility] ICD-Rate Modulation Deceleration Exercise [facility] ICD-Rate Modulation Rogers 3 [facility] ICD-Rate Modulation Threshold MediumHigh [facility] ICD-Shocks Aborted (Vent) 0 [facility] [id number] 0 [facility] ICD-SHOCKSABORTED 0 [facility] ICD-SHOCKSDELIVEREDVEN TRICULAR 0 [facility] ICD-Ventricular Fibrillation 0 [facility] Implant Date 07/03/2005 [facility] Implant Date 11/30/2002 [facility] Lead Impedance (LV) 4047 ohm [facility] Lead Impedance (RV) 722 ohm [facility] Lead Impedance High Voltage 62 ohm [facility] Lead1 Mfg MDT [facility] Lead2 Mfg MDT [facility] Lead3 Mfg GDT [facility] Location LV [facility] Location RA [facility] Location RV [facility] Lower Rate (bpm) 80 {beats}/min [facility] LV PACING % 0 % [facility] Max Sensor Rate (bpm) 90 {beats}/min [facility] MDT_PROG_TACHY_ZONE_DE TECTIONS_STATUS ENABLED [facility] Model [id number] Viva XT HOOK UP DRIVER-D [facility] Model 4196 Attain Ability MRI SureScan [facility] Model 5076 CapSureFix Novus [facility] Model 0144 Endotak Endurance Rx [facility] Pacing Mode DDDR [facility] Serial Number [id number] [facility] Serial Number [id number] [facility] Serial Number [id number] [facility] Serial Number [id number] [facility] Test Charge Energy 18 J [facility] Test Charge Time 5.145 [facility] Therapy Status (Vent) Enabled [facility] Thresh RA Capture Amplitude (volts) 0.625 V [facility] Thresh RA Capture Duration (ms) 0.4 ms [facility] Thresh RA Sensing Amplitude (mvolts) 2.25 mV [facility] Thresh RV Capture Amplitude (VOLTS) 1.375 V [facility] Thresh RV Capture Duration (MS) 0.4 ms [facility] Thresh RV Sensing Amplitude (MVOLTS) 8.125 mV [facility] Tracking Rate (bpm) 90 {beats}/min C [facility] VF Zone Detection Interval 450 ms [facility] VF Zone Therapy Configuration 2 ATP(s) + 0 Shock(s) [facility] No Panel Informationon 03-29 BLANK _ [facility] [facility]ATRIALTACHYCARDIA 0 [facility] ICD-Fast Ventricular Tachycardia 0 [facility] Implant Date 09/23/2016 [facility] BLANK _ [facility] ICD-ATRIALTACHYCARDIA 0 [facility] ICD-Fast Ventricular Tachycardia 0 [facility] Implant Date 09/23/2016 [facility] ICD REMOTE CHECKon AV Delay Adaptive Paced Minimum (ms) 350 ms [facility] AV Delay Adaptive Rate Maximum (bpm) 90 {beats}/min [facility] AV Delay Adaptive Rate Minimum (bpm) 75 {beats}/min [facility] AV Delay Adaptive Sensed Minimum (ms) 250 ms [facility] AV Delay Adaptive Status ENABLED [facility] AV Delay Paced (ms) 100 ms [facility] AV Delay Sensed (ms) 70 ms [facility] Battery Voltage 2.79 V [facility] Scott RA Pacing Amplitude (volts) 2 V [facility] Scott RA Pacing Polarity BI [facility] Scott RA Pacing Pulse Width (ms) 0.4 ms [facility] Scott RA Sensing Amplitude (mvolts) 0.3 mV [facility] Scott RA Sensing Blanking Period (ms) 150 ms [facility] Scott RA Sensing Polarity BI [facility] Scott RA Sensing Refractory Period (ms) 250 ms [facility] Scott RV Pacing Amplitude (volts) 2.75 V [facility] Scott RV Pacing Polarity BI [facility] Scott RV Pacing Pulse Width (ms) 0.4 ms [facility] Scott RV Sensing Amplitude (mvolts) 0.3 mV [facility] Scott RV Sensing Blanking Period (ms) 200 ms [facility] Scott RV Sensing Polarity BI [facility] Detection Configuration (Vent) 2 - Zone [facility] FastVT_Detection Interval 450 ms [facility] FastVT_Therapy Configuration 2 ATP(s) + 0 Shock(s) [facility] ICD AFIB DetectionStatus DISABLED [facility] ICD ATAF DetectionInterval ms 450 ms [facility] ICD ATAF DetectionStatus ENABLED [facility] ICD ATAF TherapyConfiguration 2 ATP(s) + 0 Shock(s) [facility] ICD FastVT DetectionStatus ENABLED [facility] ICD-ADLRATE_BPM 85 {beats}/min [facility] ICD-AMS EPISODES 133 {beats}/min [facility] ICD-ATP Episodes (Vent) 0 [facility] ICD-ATRIALFIBRILLATION 0 [facility] ICD-Counters Cleared Date 09/23/2016 [facility] ICD-Device Mfg MDT [facility] ICD-LEADIMPEDANCEATRIA L 342 ohm [facility] ICD-Percent Pacing (Atrial) 99.95 % [facility] ICD-Percent Pacing (Vent) 99.97 % [facility] ICD-PMT Intervention ENABLED [facility] ICD-PVC Intervention ENABLED [facility] ICD-Rate Modulation Acceleration Reaction 30 s [facility] ICD-Rate Modulation Deceleration Exercise [facility] ICD-Rate Modulation Rogers 3 [facility] ICD-Rate Modulation Threshold MediumHigh [facility] ICD-Shocks Aborted (Vent) 0 [facility] [id number] 0 [facility] ICD-SHOCKSABORTED 0 [facility] ICD-SHOCKSDELIVEREDVEN TRICULAR 0 [facility] ICD-Ventricular Fibrillation 0 [facility] Implant Date 07/03/2005 [facility] Implant Date 11/30/2002 [facility] Lead Impedance (LV) 4047 ohm [facility] Lead Impedance (RV) 760 ohm [facility] Lead Impedance High Voltage 59 ohm [facility] Lead1 Mfg MDT [facility] Lead2 Mfg MDT [facility] Lead3 Mfg GDT [facility] Location LV [facility] Location RA [facility] Location RV [facility] Lower Rate (bpm) 80 {beats}/min [facility] LV PACING % 0 % [facility] Max Sensor Rate (bpm) 90 {beats}/min [facility] RENATO_PROG_TACHY_ZONE_DE TECTIONS_STATUS ENABLED [facility] Model [id number] Viva XT HOOK UP DRIVER-D [facility] Model 4196 Attain Ability MRI SureScan [facility] Model 5076 CapSureFix Novus [facility] Model 0144 [employer]otak Endurance Rx [facility] Pacing Mode DDDR [facility] Serial Number [id number] [facility] Serial Number [id number] [facility] Serial Number [id number] [facility] Serial Number [id number] [facility] Test Charge Energy 18 J [facility] Test Charge Time 5.145 [facility] Therapy Status (Vent) Enabled [facility] Thresh RA Capture Amplitude (volts) 0.625 V [facility] Thresh RA Capture Duration (ms) 0.4 ms [facility] Thresh RA Sensing Amplitude (mvolts) 2.875 mV [facility] Thresh RV Capture Amplitude (VOLTS) 1.375 V [facility] Thresh RV Capture Duration (MS) 0.4 ms [facility] Thresh RV Sensing Amplitude (MVOLTS) 11 mV [facility] Tracking Rate (bpm) 90 {beats}/min [facility] VF Zone Detection Interval 450 ms [facility] VF Zone Therapy Configuration 2 ATP(s) + 0 Shock(s) [facility] AV Delay Adaptive Paced Minimum (ms) 350 ms [facility] AV Delay Adaptive Rate Maximum (bpm) 90 {beats}/min [facility] AV Delay Adaptive Rate Minimum (bpm) 75 {beats}/min [facility] AV Delay Adaptive Sensed Minimum (ms) 250 ms [facility] AV Delay Adaptive Status ENABLED [facility] AV Delay Paced (ms) 100 ms [facility] AV Delay Sensed (ms) 70 ms [facility] Battery Voltage 2.78 V [facility] Scott RA Pacing Amplitude (volts) 2 V [facility] Scott RA Pacing Polarity BI [facility] Scott RA Pacing Pulse Width (ms) 0.4 ms [facility] Scott RA Sensing Amplitude (mvolts) 0.3 mV [facility] Scott RA Sensing Blanking Period (ms) 150 ms [facility] Scott RA Sensing Polarity BI [facility] Scott RA Sensing Refractory Period (ms) 250 ms [facility] Scott RV Pacing Amplitude (volts) 2.75 V [facility] Scott RV Pacing Polarity BI [facility] Scott RV Pacing Pulse Width (ms) 0.4 ms [facility] Scott RV Sensing Amplitude (mvolts) 0.3 mV [facility] Scott RV Sensing Blanking Period (ms) 200 ms [facility] Scott RV Sensing Polarity BI [facility] Detection Configuration (Vent) 2 - Zone [facility] FastVT_Detection Interval 450 ms [facility] FastVT_Therapy Configuration 2 ATP(s) + 0 Shock(s) [facility] ICD AFIB DetectionStatus DISABLED [facility] ICD ATAF DetectionInterval ms 450 ms [facility] ICD ATAF DetectionStatus ENABLED [facility] ICD ATAF TherapyConfiguration 2 ATP(s) + 0 Shock(s) [facility] ICD FastVT DetectionStatus ENABLED [facility] ICD-ADLRATE_BPM 85 {beats}/min [facility] ICD-AMS EPISODES 133 {beats}/min [facility] ICD-ATP Episodes (Vent) 0 [facility] ICD-ATRIALFIBRILLATION 0 [facility] ICD-Counters Cleared Date 09/23/2016 [facility] ICD-Device Mfg MDT [facility] ICD-LEADIMPEDANCEATRIA L 361 ohm [facility] ICD-Percent Pacing (Atrial) 98.5 % [facility] ICD-Percent Pacing (Vent) 99.69 % [facility] ICD-PMT Intervention ENABLED [facility] ICD-PVC Intervention ENABLED [facility] ICD-Rate Modulation Acceleration Reaction 30 s [facility] ICD-Rate Modulation Deceleration Exercise [facility] ICD-Rate Modulation Rogers 3 [facility] ICD-Rate Modulation Threshold MediumHigh [facility] ICD-Shocks Aborted (Vent) 0 [facility] [id number] 0 [facility] ICD-SHOCKSABORTED 0 [facility] ICD-SHOCKSDELIVEREDVEN TRICULAR 0 [facility] ICD-Ventricular Fibrillation 0 [facility] Implant Date 07/03/2005 [facility] Implant Date 11/30/2002 [facility] Lead Impedance (LV) 4047 ohm [facility] Lead Impedance (RV) 760 ohm [facility] Lead Impedance High Voltage 62 ohm [facility] Lead1 Mfg MDT [facility] Lead2 Mfg MDT [facility] Lead3 Mfg GDT [facility] Location LV [facility] Location RA [facility] Location RV [facility] Lower Rate (bpm) 80 {beats}/min [facility] LV PACING % 0 % [facility] Max Sensor Rate (bpm) 90 {beats}/min [facility] MDT_PROG_TACHY_ZONE_DE TECTIONS_STATUS ENABLED [facility] Model [id number] Viva XT HOOK UP DRIVER-D [facility] Model 4196 Attain Ability MRI SureScan [facility] Model 5076 CapSureFix Novus [facility] Model 0144 [employer]otak Endurance Rx [facility] Pacing Mode DDDR [facility] Serial Number [id number] [facility] Serial Number [id number] [facility] Serial Number [id number] [facility] Serial Number [id number] [facility] Test Charge Energy 18 J [facility] Test Charge Time 5.145 [facility] Therapy Status (Vent) Enabled [facility] Thresh RA Capture Amplitude (volts) 0.625 V [facility] Thresh RA Capture Duration (ms) 0.4 ms [facility] Thresh RA Sensing Amplitude (mvolts) 2.875 mV [facility] Thresh RV Capture Amplitude (VOLTS) 1.375 V [facility] Thresh RV Capture Duration (MS) 0.4 ms [facility] Thresh RV Sensing Amplitude (MVOLTS) 13.25 mV [facility] Tracking Rate (bpm) 90 {beats}/min [facility] VF Zone Detection Interval 450 ms [facility] VF Zone Therapy Configuration 2 ATP(s) + 0 Shock(s) [facility] No Panel Informationon 03-05 BLANK _ [facility] ICD-ATRIALTACHYCARDIA 0 [facility] ICD-Fast Ventricular Tachycardia 0 [facility] Implant Date 09/23/2016 [facility] BLANK _ [facility] ICD-ATRIALTACHYCARDIA 0 [facility] ICD-Fast Ventricular Tachycardia 0 [facility] Implant Date 09/23/2016 [facility] XR CSPINE 2_3 VIEWSon 2022 XR CSPINE 2_3 VIEWS EXAM: XR CSPINE 2_3 VIEWS HISTORY: Pain COMPARISON: None. TECHNIQUE: 3 views FINDINGS: Straightening of the cervical lordosis. Below C6 is not seen on the lateral view. There is anterior osteophyte formation. There is mild to moderate disc space narrowing at C4-5 and C5-6. There is bilateral facet and uncovertebral hypertrophy. The adjacent soft tissues are unremarkable. The open mouth view appears normal IMPRESSION: Moderate degenerative change Electronically authenticated by: TENZIN ALEJO Date: 2023-01-27 10:58 Normal [facility] PROTIMEon 01-03-2023 INR Coag (PPP) [Relative time] 0.98 {INR} Normal [facility] Comment on above: Performed By: #### P T ####[facility] [id number] [place], [place] [address]Dr. Melissa Helm INR GUIDELINES SEE BELOW Normal [facility] Comment on above: Result Comment: POOJA RED INR: 2.0 - 3.0 CONDITIONS NOT LISTED BELOW 2.5 - 3.5 FOR PROSTHETIC HEART VALVE REPLACEMENT 2.5 - 3.5 RECURRENT THROMBOSIS Performed By: #### P T ####[facility] [id number] [place], [place] [address]XkTarun Helm PT Coag (PPP) [Time] 10.4 s Normal 9.0-11.6 [facility] Comment on above: Performed By: #### P T ####[facility] [id number] [place], [place] [address]Fs. Melissa Helm XR SHOULDER RT 2V or >on XR SHOULDER RT 2V or > XR SHOULDER RT 2V or >: HISTORY: Pain of right shoulder joint. COMPARISON: None available. TECHNIQUE: 3 radiographic view(s) obtained. FINDINGS: There is an acute comminuted and mildly displaced fracture involving the right humeral neck and the greater tuberosity. There is no dislocation. The acromioclavicular joint is normally aligned. IMPRESSION: Acute mildly displaced fracture involving the right humeral neck and the greater tuberosity. No dislocation. Electronically authenticated by: FAUSTO GONCALVES Date: 2023-01-03 13:54 Normal [facility] ICD REMOTE CHECKon 3 AV Delay Adaptive Paced Minimum (ms) 350 ms [facility] AV Delay Adaptive Rate Maximum (bpm) 90 {beats}/min [facility] AV Delay Adaptive Rate Minimum (bpm) 75 {beats}/min [facility] AV Delay Adaptive Sensed Minimum (ms) 250 ms [facility] AV Delay Adaptive Status ENABLED [facility] AV Delay Paced (ms) 100 ms [facility] AV Delay Sensed (ms) 70 ms [facility] Battery Voltage 2.81 V [facility] Scott RA Pacing Amplitude (volts) 2 V [facility] Scott RA Pacing Polarity BI [facility] Scott RA Pacing Pulse Width (ms) 0.4 ms [facility] Scott RA Sensing Amplitude (mvolts) 0.3 mV [facility] Scott RA Sensing Blanking Period (ms) 150 ms [facility] Scott RA Sensing Polarity BI [facility] Scott RA Sensing Refractory Period (ms) 250 ms [facility] Scott RV Pacing Amplitude (volts) 2.75 V [facility] Scott RV Pacing Polarity BI [facility] Scott RV Pacing Pulse Width (ms) 0.4 ms [facility] Scott RV Sensing Amplitude (mvolts) 0.3 mV [facility] Scott RV Sensing Blanking Period (ms) 200 ms [facility] Scott RV Sensing Polarity BI [facility] Detection Configuration (Vent) 2 - Zone [facility] FastVT_Detection Interval 450 ms [facility] FastVT_Therapy Configuration 2 ATP(s) + 0 Shock(s) [facility] ICD AFIB DetectionStatus DISABLED [facility] ICD ATAF DetectionInterval ms 450 ms [facility] ICD ATAF DetectionStatus ENABLED [facility] ICD ATAF TherapyConfiguration 2 ATP(s) + 0 Shock(s) [facility] ICD FastVT DetectionStatus ENABLED [facility] ICD-ADLRATE_BPM 85 {beats}/min [facility] ICD-AMS EPISODES 133 {beats}/min [facility] ICD-ATP Episodes (Vent) 0 [facility] ICD-ATRIALFIBRILLATION 0 [facility] ICD-Counters Cleared Date 09/23/2016 [facility] ICD-Device Sri GROSS [facility] ICD-LEADIMPEDANCEATRIA L 342 ohm [facility] ICD-Percent Pacing (Atrial) 99.28 % [facility] ICD-Percent Pacing (Vent) 99.57 % [facility] ICD-PMT Intervention ENABLED [facility] ICD-PVC Intervention ENABLED [facility] ICD-Rate Modulation Acceleration Reaction 30 s [facility] ICD-Rate Modulation Deceleration Exercise [facility] ICD-Rate Modulation Rogers 3 [facility] ICD-Rate Modulation Threshold MediumHigh [facility] ICD-Shocks Aborted (Vent) 0 [facility] [id number] 0 [facility] ICD-SHOCKSABORTED 0 [facility] ICD-SHOCKSDELIVEREDVEN TRICULAR 0 [facility] ICD-Ventricular Fibrillation 0 [facility] Implant Date 07/03/2005 [facility] Implant Date 11/30/2002 [facility] Lead Impedance (LV) 4047 ohm [facility] Lead Impedance (RV) 722 ohm [facility] Lead Impedance High Voltage 64 ohm [facility] Lead1 Sri CLAYT [facility] Lead2 Sri GROSS [facility] Lead3 Mfg GDT [facility] Location LV [facility] Location RA [facility] Location RV [facility] Lower Rate (bpm) 80 {beats}/min [facility] LV PACING % 0 % [facility] Max Sensor Rate (bpm) 90 {beats}/min [facility] MDT_PROG_TACHY_ZONE_DE TECTIONS_STATUS ENABLED [facility] Model [id number] Viva XT HOOK UP DRIVER-D [facility] Model 4196 Attain Ability MRI SureScan [facility] Model 5076 CapSureFix Novus [facility] Model 0144 [employer]otak Endurance Rx [facility] Pacing Mode DDDR [facility] Serial Number [id number] [facility] Serial Number [id number] [facility] Serial Number [id number] [facility] Serial Number [id number] [facility] Test Charge Energy 18 J [facility] Test Charge Time 4.834 [facility] Therapy Status (Vent) Enabled [facility] Thresh RA Capture Amplitude (volts) 0.625 V [facility] Thresh RA Capture Duration (ms) 0.4 ms [facility] Thresh RA Sensing Amplitude (mvolts) 2 mV [facility] Thresh RV Capture Amplitude (VOLTS) 1.375 V [facility] Thresh RV Capture Duration (MS) 0.4 ms [facility] Thresh RV Sensing Amplitude (MVOLTS) 7.5 mV [facility] Tracking Rate (bpm) 90 {beats}/min C [facility] VF Zone Detection Interval 450 ms [facility] VF Zone Therapy Configuration 2 ATP(s) + 0 Shock(s) [facility] No Panel Informationon 11-28 BLANK _ [facility] ICD-ATRIALTACHYCARDIA 0 [facility] ICD-Fast Ventricular Tachycardia 0 [facility] Implant Date 09/23/2016 [facility] NM BONE IMAGE 3 PHASEon 02-2 NM BONE IMAGE 3 PHASE EXAMINATION: NM SARAH NE IMAGE 3 PHASE HISTORY: Low back pain COMPARISON: No relevant comparison available. TECHNIQUE: 25.1 mCi Technetium 99m MDP was injected intravenously followed by acquisition of dynamic flow, immediate blood pool, and delayed static images. FINDINGS: IMAGED AREA: Low thoracic and lumbar spine. FLOW PHASE: Normal. BLOOD POOL PHASE: Normal. DELAYED IMAGES: Focus of abnormal increased radiotracer activity at the anterior costochondral junction of approximately left sixth rib. OTHER: Negative. IMPRESSION: 1. No abnormal radiotracer activity within the spine. 2. Abnormal focus of activity within anterior, suspected to be left sixth rib, of uncertain etiology; recent fracture versus tumor. Electronically authenticated by: JC BRAVO Date: 2022-10-26 13:35 Normal [facility] TRANSFERRINon 10-07-2022 Transferrin [Mass/Vol] 354 mg/dL Normal 192-364 Th e [facility] Comment on above: Performed By: #### T RANSFR #### [facility] [address] [address] [address] Melissa Helm CBC AUTO DIFFon 10-06-2022 BASO # 0.1 103/ul Normal 0.0-0.1 [facility] Comment on above: Performed By: #### C BC #### [facility] [address] [place] [address] Dr. Melissa Helm Basophils/100 WBC (Bld) 0.9 % Normal 0.2-2.0 [facility] Comment on above: Performed By: #### C BC #### [facility] [address] [place] [address] Dr. Melissa Helm EO # 0.4 103/ul Normal 0.0-0.7 [facility] Comment on above: Performed By: #### C BC #### [facility] [address] [place] [address] Dr. Melissa Helm Eosinophils/100 WBC (Bld) 2.7 % Normal 0.9-7.0 [facility] Comment on above: Performed By: #### C BC #### [facility] [address] [place] [address] Dr. Melissa Helm Erythrocyte distribution width (RBC) [Ratio] 20.8 % Critically high 11.0-15.0 [facility] Comment on above: Performed By: #### C BC #### [facility] [address] [place] [address] Dr. Melissa Helm Hematocrit (Bld) [Volume fraction] 38.3 % Normal 36.0-48.0 [facility] Comment on above: Performed By: #### C BC #### [facility] [address] [address] [address] Melissa Helm Hemoglobin (Bld) [Mass/Vol] 10.8 g/dL Critically low 12.0-16.0 [facility] Comment on above: Performed By: #### C BC #### [facility] [address] [address] [address] Melissa Helm IG # 0.07 10e3/ul Critically high 0.00-0.03 [facility] Comment on above: Performed By: #### C BC #### [facility] [address] [address] [address] Melissa Helm IG % 0.5 % Normal 0.0-0.5 [facility] Comment on above: Performed By: #### C BC #### [facility] [address] [place] [address] Dr. Melissa Helm LYMPH # 2.2 103/ul Normal 1.2-3.8 [facility] Comment on above: Performed By: #### C BC #### [facility] [address] [place] [address] Dr. Melissa Helm Lymphocytes/100 WBC (Bld) 17.5 % Critically low 20.5-60.0 [facility] Comment on above: Performed By: #### C BC #### [facility] [address] [place] [address] Dr. Melissa Helm MANUAL DIFF REQ NO Normal [facility] Comment on above: Performed By: #### C BC #### [facility] [address] [address] [address] Melissa Helm MCH (RBC) [Entitic mass] 20.6 pg Critically low 26.7-34.0 [facility] Comment on above: Performed By: #### C BC #### [facility] [address] [place] [address] Dr. Melissa Helm MCHC (RBC) [Mass/Vol] 28.2 g/dL Critically low 29.9-35.2 [facility] Comment on above: Performed By: #### C BC #### [facility] [address] [place] [address] Dr. Melissa Helm MCV (RBC) [Entitic vol] 73.0 fL Critically low 81.0-99.0 [facility] Comment on above: Performed By: #### C BC #### [facility] [address] [place] [address] Dr. Melissa Helm MONO # 1.2 103/ul Critically high 0.3-0.8 [facility] Comment on above: Performed By: #### C BC #### [facility] [address] [place] [address] Dr. Melissa Helm Monocytes/100 WBC (Bld) 9.0 % Normal 1.7-12.0 [facility] Comment on above: Performed By: #### C BC #### [facility] [address] [place] [address] Dr. Melissa Helm NEUT # 8.9 103/ul Critically high 1.4-6.5 [facility] Comment on above: Performed By: #### C BC #### [facility] [address] [place] [address] Dr. Melissa Helm Neutrophils/100 WBC (Bld) 69.4 % Normal 43.0-75.0 [facility] Comment on above: Performed By: #### C BC #### [facility] [address] [place] [address] Dr. Melissa Helm PLT 184 103/ul Normal 150-450 [facility] Comment on above: Performed By: #### C BC #### [facility] [address] [place] [address] Dr. Melissa Helm RBC 5.25 106/ul Normal 4.20-5.40 [facility] Comment on above: Performed By: #### C BC #### [facility] [address] [place] [address] Dr. Melissa Helm WBC 12.8 103/ul Critically high 4.0-11.0 [facility] Comment on above: Performed By: #### C BC #### [facility] [address] [place] [address] Dr. Melissa Helm FERRITINon 10-06-2022 Ferritin [Mass/Vol] 33.0 ng/mL Normal 8.0-252.0 [facility] Comment on above: Performed By: #### F ERR, FETIBC #### [facility] [address] [address] [address] Melissa Helm IRON AND TIBCon 10-06-2022 % SATURATION 20.3 % Normal [facility] Comment on above: Performed By: #### F ERR, FETIBC #### [facility] [address] [address] [address] Melissa Helm Iron [Mass/Vol] 89.0 ug/dL Normal 50.0-170.0 [facility] Comment on above: Performed By: #### F ERR, FETIBC #### [facility] [address] [place] [address] Dr. Melissa Helm TIBC DIRECT 438.0 ug/dL Normal 250.0-450. 0 [facility] Comment on above: Performed By: #### F ERR, FETIBC #### [facility] [address] [place] [address] Dr. 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 During your visit today, we recorded the following information about you: Allergies As of Date: 09/11/2022 Noted Allergy Reaction ERYTHROMYCIN BASE 07/08/2004 14 - Other: See Comments Comments: vomitting MORPHINE 04/26/2012 11 - Vomiting Comments: Per patient, can tolerate as long as it is not a continuous drip TAPE (ADHESIVE TAPE (ROSINS)) 07/08/2012 2 - Rash Comments: blisters ZOFRAN (ONDANSETRON HCL (PF)) 10/13/2018 5 - Intolerance Comments: jittery Date Reviewed: 11/14/2021 Reviewed by: Cyndi Hairston - Fully Assessed Reason for Visit: Research [[id number]] Cmt: IRB [id number] TRIM-AF Prescriptions as of 09/11/2022 - torsemide (DEMADEX) 20 mg tablet Take 2 tablets by mouth once daily. - rOPINIRole (REQUIP) 0.25 mg tablet Take 1 tablet by mouth once daily at dinner and take 2 tablets by mouth once daily at bedtime - aspirin 81 mg chewable tablet Chew and swallow 1 tablet by mouth once daily. - sacubitril-valsartan (ENTRESTO) 24-26 mg tablet Take 1 tablet by mouth twice daily. - warfarin (COUMADIN) 5 mg tablet Take 1 tablet by mouth once daily. - OLANZapine (ZYPREXA) 5 mg tablet Take 5 mg by mouth daily at bedtime. - amiodarone (PACERONE) 200 mg tablet Take 1 tablet by mouth twice daily. - magnesium oxide (MAG-OX) 400 mg (241.3 mg magnesium) tablet Take 1 tablet by mouth twice daily. - atorvastatin 80 mg tablet Take 1 tablet by mouth once daily. - clonazePAM 0.5 mg tablet Take 0.5 mg by mouth. 1 tablet During the day and 2 tablets at bedtime Meds Comments as of 08/27/2020: 08/27/20 The medications are managed by this patient by: PATIENT Jameel Mcmahon, PharmD [facility] LD 11-5-12 Problem List As Of Date 09/11/2022 Noted Resolved Urinary tract infection of [P39.3] 07/26/2004 07/23/2020 Fitting and adjustment of orthopedic device [Z4*04/29/2010 07/23/2020 CAD (coronary artery disease) [I25.10] Remote STEMI (1998) [I21.3] 07/23/2020 Cardiogenic shock (HCC) [R57.0] 07/23/2020 Heart failure, systolic, acute on chronic (HCC)* 07/23/2020 Heart failure, systolic and diastolic, chronic * MR (mitral regurgitation) [I34.0] 07/16/2012 Pulmonary hypertension [I27.20] Dual chamber HOOK UP DRIVER-D [Z95.810] 07/23/2020 Primary hypertension [I10] Nicotine use disorder [F17.200] Exercise-induced asthma [J45.990] Anemia [D64.9] 10/29/2011 07/23/2020 H/o GERD [K21.9] 07/23/2020 Migraines [G43.909] H/o Depression/Anxiety/Sleep disturbance [F32.* Preop testing [Z01.818] 07/08/2012 07/23/2020 SUMMARY [V999.95] 07/11/2012 07/23/2020 Pulmonary hypertension, moderate to severe (HCC*2012 Other acute postoperative pain [G89.18] 07/13/2012 07/16/2012 Pulmonary insuff [AHI6558] 07/13/2012 07/23/2020 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 07/14/2012 Intravascular volume depletion [E86.1] 07/13/2012 07/14/2012 Fluid overload [E87.70] 07/14/2012 07/16/2012 Post-op Afib (s/p DCCV x 1) [I48.91] 07/14/2012 07/23/2020 Dyslipidemia, goal LDL below 70 [E78.5] 07/17/2012 07/23/2020 Cardiac resynchronization therapy defibrillator*07/19/2012 Obesity, Class I, BMI 30-34.9 [E66.9] 10/13/2018 VT (ventricular tachycardia) (HCC) [I47.20] 10/14/2018 Ventricular tachycardia (HCC) [I47.20] 06/08/2020 06/23/2020 Elevated TSH [R79.89] 06/09/2020 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, s*06/09/2020 06/23/2020 Paroxysmal atrial fibrillation (HCC) [I48.0] 06/11/2020 Valvular heart disease [I38] 06/11/2020 Acute on chronic systolic (congestive) heart fa*06/15/2020 07/23/2020 Thrombus of left atrial appendage [I51.3] 07/23/2020 Atrial tachycardia (HCC) [I47.1] 07/23/2020 Abnormal lead impedance of cardiac resynchroniz*07/24/2020 Acute decompensated heart failure (HCC) [I50.9] 03/11/2021 Encounter Status:Closed by NADIR BRANDT on 09/11/22 Normal [facility] ICD REMOTE CHECKon 12-27-202 2 AV Delay Adaptive Paced Minimum (ms) 350 ms [facility] AV Delay Adaptive Rate Maximum (bpm) 90 {beats}/min [facility] AV Delay Adaptive Rate Minimum (bpm) 75 {beats}/min [facility] AV Delay Adaptive Sensed Minimum (ms) 250 ms [facility] AV Delay Adaptive Status ENABLED [facility] AV Delay Paced (ms) 100 ms [facility] AV Delay Sensed (ms) 70 ms [facility] Battery Voltage 2.85 V [facility] Scott RA Pacing Amplitude (volts) 2 V [facility] Scott RA Pacing Polarity BI [facility] Scott RA Pacing Pulse Width (ms) 0.4 ms [facility] Scott RA Sensing Amplitude (mvolts) 0.3 mV [facility] Scott RA Sensing Blanking Period (ms) 150 ms [facility] Scott RA Sensing Polarity BI [facility] Scott RA Sensing Refractory Period (ms) 250 ms [facility] Scott RV Pacing Amplitude (volts) 2.5 V [facility] Scott RV Pacing Polarity BI [facility] Scott RV Pacing Pulse Width (ms) 0.4 ms [facility] Scott RV Sensing Amplitude (mvolts) 0.3 mV [facility] Scott RV Sensing Blanking Period (ms) 200 ms [facility] Scott RV Sensing Polarity BI [facility] Detection Configuration (Vent) 2 - Zone [facility] FastVT_Detection Interval 450 ms [facility] FastVT_Therapy Configuration 2 ATP(s) + 0 Shock(s) [facility] ICD AFIB DetectionStatus DISABLED [facility] ICD ATAF DetectionInterval ms 450 ms [facility] ICD ATAF DetectionStatus ENABLED [facility] ICD ATAF TherapyConfiguration 2 ATP(s) + 0 Shock(s) [facility] ICD FastVT DetectionStatus ENABLED [facility] ICD-ADLRATE_BPM 85 {beats}/min [facility] ICD-AMS EPISODES 133 {beats}/min [facility] ICD-ATP Episodes (Vent) 0 [facility] ICD-ATRIALFIBRILLATION 4 Cl [facility] ICD-ATRIALTACHYCARDIA 4 [facility] ICD-Counters Cleared Date 09/23/2016 [facility] ICD-Device Mfg MDT [facility] ICD-LEADIMPEDANCEATRIA L 361 ohm [facility] ICD-Percent Pacing (Atrial) 79.65 % [facility] ICD-Percent Pacing (Vent) 98.96 % [facility] ICD-PMT Intervention ENABLED [facility] ICD-PVC Intervention ENABLED [facility] ICD-Rate Modulation Acceleration Reaction 30 s [facility] ICD-Rate Modulation Deceleration Exercise [facility] ICD-Rate Modulation Rogers 3 [facility] ICD-Rate Modulation Threshold MediumHigh [facility] ICD-Shocks Aborted (Vent) 0 [facility] [id number] 0 [facility] ICD-SHOCKSABORTED 0 [facility] ICD-SHOCKSDELIVEREDVEN TRICULAR 0 [facility] ICD-Ventricular Fibrillation 0 [facility] Implant Date 07/03/2005 [facility] Implant Date 11/30/2002 [facility] Lead Impedance (LV) 4047 ohm [facility] Lead Impedance (RV) 722 ohm [facility] Lead Impedance High Voltage 63 ohm [facility] Lead1 Mfg MDT [facility] Lead2 Mfg MDT [facility] Lead3 Mfg GDT [facility] Location LV [facility] Location RA [facility] Location RV [facility] Lower Rate (bpm) 80 {beats}/min [facility] LV PACING % 0 % [facility] Max Sensor Rate (bpm) 90 {beats}/min [facility] MDT_PROG_TACHY_ZONE_DE TECTIONS_STATUS ENABLED [facility] Model [id number] Viva XT HOOK UP DRIVER-D [facility] Model 4196 Attain Ability MRI SureScan [facility] Model 5076 CapSureFix Novus [facility] Model 0144 Endotak Endurance Rx [facility] Pacing Mode DDDR [facility] Serial Number [id number] [facility] Serial Number [id number] [facility] Serial Number [id number] [facility] Serial Number [id number] [facility] Test Charge Energy 18 [facility] Test Charge Time 4.464 [facility] Therapy Status (Vent) Enabled [facility] Thresh RA Capture Amplitude (volts) 0.625 V [facility] Thresh RA Capture Duration (ms) 0.4 ms [facility] Thresh RA Sensing Amplitude (mvolts) 2.375 mV [facility] Thresh RV Capture Amplitude (VOLTS) 1.25 V [facility] Thresh RV Capture Duration (MS) 0.4 ms [facility] Thresh RV Sensing Amplitude (MVOLTS) 12 mV [facility] Tracking Rate (bpm) 90 {beats}/min C [facility] VF Zone Detection Interval 450 ms [facility] VF Zone Therapy Configuration 2 ATP(s) + 0 Shock(s) [facility] No Panel Informationon 08-25 BLANK _ [facility] ICD-ATRIALTACHYCARDIA 0 [facility] ICD-Fast Ventricular Tachycardia 0 [facility] Implant Date 09/23/2016 [facility] ICD REMOTE CHECKon 2 AV Delay Adaptive Paced Minimum (ms) 350 ms [facility] AV Delay Adaptive Rate Maximum (bpm) 90 {beats}/min [facility] AV Delay Adaptive Rate Minimum (bpm) 75 {beats}/min [facility] AV Delay Adaptive Sensed Minimum (ms) 250 ms [facility] AV Delay Adaptive Status ENABLED [facility] AV Delay Paced (ms) 100 ms [facility] AV Delay Sensed (ms) 70 ms [facility] Battery Voltage 2.86 V [facility] Scott RA Pacing Amplitude (volts) 2 V [facility] Scott RA Pacing Polarity BI [facility] Scott RA Pacing Pulse Width (ms) 0.4 ms [facility] Scott RA Sensing Amplitude (mvolts) 0.3 mV [facility] Scott RA Sensing Blanking Period (ms) 150 ms [facility] Scott RA Sensing Polarity BI [facility] Scott RA Sensing Refractory Period (ms) 250 ms [facility] Scott RV Pacing Amplitude (volts) 3 V [facility] Scott RV Pacing Polarity BI [facility] Scott RV Pacing Pulse Width (ms) 0.4 ms [facility] Scott RV Sensing Amplitude (mvolts) 0.3 mV [facility] Scott RV Sensing Blanking Period (ms) 200 ms [facility] Scott RV Sensing Polarity BI [facility] Detection Configuration (Vent) 2 - Zone [facility] FastVT_Detection Interval 450 ms [facility] FastVT_Therapy Configuration 2 ATP(s) + 0 Shock(s) [facility] ICD AFIB DetectionStatus DISABLED [facility] ICD ATAF DetectionInterval ms 450 ms [facility] ICD ATAF DetectionStatus ENABLED [facility] ICD ATAF TherapyConfiguration 2 ATP(s) + 0 Shock(s) [facility] ICD FastVT DetectionStatus ENABLED [facility] ICD-ADLRATE_BPM 85 {beats}/min [facility] ICD-AMS EPISODES 133 {beats}/min [facility] ICD-ATP Episodes (Vent) 0 [facility] ICD-ATRIALFIBRILLATION 1 Cl [facility] ICD-ATRIALTACHYCARDIA 1 [facility] ICD-Counters Cleared Date 09/23/2016 [facility] ICD-Device Mfg MDT [facility] ICD-LEADIMPEDANCEATRIA L 361 ohm [facility] ICD-Percent Pacing (Atrial) 84.32 % [facility] ICD-Percent Pacing (Vent) 99.05 % [facility] ICD-PMT Intervention ENABLED [facility] ICD-PVC Intervention ENABLED [facility] ICD-Rate Modulation Acceleration Reaction 30 s [facility] ICD-Rate Modulation Deceleration Exercise [facility] ICD-Rate Modulation Rogers 3 [facility] ICD-Rate Modulation Threshold MediumHigh [facility] ICD-Shocks Aborted (Vent) 0 [facility] [id number] 0 [facility] ICD-SHOCKSABORTED 0 [facility] ICD-SHOCKSDELIVEREDVEN TRICULAR 0 [facility] ICD-Ventricular Fibrillation 0 [facility] Implant Date 07/03/2005 [facility] Implant Date 11/30/2002 [facility] Lead Impedance (LV) 4047 ohm [facility] Lead Impedance (RV) 722 ohm [facility] Lead Impedance High Voltage 63 ohm [facility] Lead1 Mfg MDT [facility] Lead2 Mfg MDT [facility] Lead3 Mfg GDT [facility] Location LV [facility] Location RA [facility] Location RV [facility] Lower Rate (bpm) 80 {beats}/min [facility] LV PACING % 0 % [facility] Max Sensor Rate (bpm) 90 {beats}/min [facility] MDT_PROG_TACHY_ZONE_DE TECTIONS_STATUS ENABLED [facility] Model [id number] Viva XT HOOK UP DRIVER-D [facility] Model 4196 Attain Ability MRI SureScan [facility] Model 5076 CapSureFix Novus [facility] Model 0144 Endotak Endurance Rx [facility] Pacing Mode DDDR [facility] Serial Number [id number] [facility] Serial Number [id number] [facility] Serial Number [id number] [facility] Serial Number [id number] [facility] Test Charge Energy 18 J [facility] Test Charge Time 4.464 [facility] Therapy Status (Vent) Enabled [facility] Thresh RA Capture Amplitude (volts) 0.625 V [facility] Thresh RA Capture Duration (ms) 0.4 ms [facility] Thresh RA Sensing Amplitude (mvolts) 3.125 mV [facility] Thresh RV Capture Amplitude (VOLTS) 1.5 V [facility] Thresh RV Capture Duration (MS) 0.4 ms [facility] Thresh RV Sensing Amplitude (MVOLTS) 10.75 mV [facility] Tracking Rate (bpm) 90 {beats}/min C [facility] VF Zone Detection Interval 450 ms [facility] VF Zone Therapy Configuration 2 ATP(s) + 0 Shock(s) [facility] No Panel Informationon 07-01 BLANK _ [facility] ICD-ATRIALTACHYCARDIA 0 [facility] ICD-Fast Ventricular Tachycardia 0 [facility] Implant Date 09/23/2016 [facility] ICD REMOTE CHECKon 2 AV Delay Adaptive Paced Minimum (ms) 350 ms [facility] AV Delay Adaptive Rate Maximum (bpm) 90 {beats}/min [facility] AV Delay Adaptive Rate Minimum (bpm) 75 {beats}/min [facility] AV Delay Adaptive Sensed Minimum (ms) 250 ms [facility] AV Delay Adaptive Status ENABLED [facility] AV Delay Paced (ms) 100 ms [facility] AV Delay Sensed (ms) 70 ms [facility] Battery Voltage 2.85 V [facility] Scott LV Pacing Polarity BI [facility] Scott RA Pacing Amplitude (volts) 2 V [facility] Scott RA Pacing Polarity BI [facility] Scott RA Pacing Pulse Width (ms) 0.4 ms [facility] Scott RA Sensing Amplitude (mvolts) 0.3 mV [facility] Scott RA Sensing Blanking Period (ms) 150 ms [facility] Scott RA Sensing Polarity BI [facility] Scott RA Sensing Refractory Period (ms) 250 ms [facility] Scott RV Pacing Amplitude (volts) 2.75 V [facility] Scott RV Pacing Polarity BI [facility] Sctot RV Pacing Pulse Width (ms) 0.4 ms [facility] Scott RV Sensing Amplitude (mvolts) 0.3 mV [facility] Scott RV Sensing Blanking Period (ms) 200 ms [facility] Scott RV Sensing Polarity BI [facility] Detection Configuration (Vent) 2 - Zone [facility] FastVT_Detection Interval 450 ms [facility] FastVT_Therapy Configuration 2 ATP(s) + 0 Shock(s) [facility] ICD AFIB DetectionStatus DISABLED [facility] ICD ATAF DetectionInterval ms 450 ms [facility] ICD ATAF DetectionStatus ENABLED [facility] ICD ATAF TherapyConfiguration 2 ATP(s) + 0 Shock(s) [facility] ICD FastVT DetectionStatus ENABLED [facility] ICD-ADLRATE_BPM 85 {beats}/min [facility] ICD-AMS EPISODES 133 {beats}/min [facility] ICD-ATP Episodes (Vent) 0 [facility] ICD-ATRIALFIBRILLATION 117 Cl [facility] ICD-ATRIALTACHYCARDIA 117 [facility] ICD-Counters Cleared Date 09/23/2016 [facility] ICD-Device Mfg MDT [facility] ICD-LEADIMPEDANCEATRIA L 342 ohm [facility] ICD-Percent Pacing (Atrial) 67.54 % [facility] ICD-Percent Pacing (Vent) 96.8 % [facility] ICD-PMT Intervention ENABLED [facility] ICD-PVC Intervention ENABLED [facility] ICD-Rate Modulation Acceleration Reaction 30 s [facility] ICD-Rate Modulation Deceleration Exercise [facility] ICD-Rate Modulation Rogers 3 [facility] ICD-Rate Modulation Threshold MediumHigh [facility] ICD-Shocks Aborted (Vent) 0 [facility] [id number] 0 [facility] ICD-SHOCKSABORTED 0 [facility] ICD-SHOCKSDELIVEREDVEN TRICULAR 0 [facility] ICD-Ventricular Fibrillation 0 [facility] Implant Date 07/03/2005 [facility] Implant Date 11/30/2002 [facility] Lead Impedance (LV) 4047 ohm [facility] Lead Impedance (RV) 703 ohm [facility] Lead Impedance High Voltage 60 ohm [facility] Lead1 Mfg MDT [facility] Lead2 Mfg MDT [facility] Lead3 Mfg GDT [facility] Location LV [facility] Location RA [facility] Location RV [facility] Lower Rate (bpm) 80 {beats}/min [facility] LV PACING % 0 % [facility] Max Sensor Rate (bpm) 90 {beats}/min [facility] RENATO_PROG_TACHY_ZONE_DE TECTIONS_STATUS ENABLED [facility] Model [id number] Viva XT HOOK UP DRIVER-D [facility] Model 4196 Attain Ability MRI SureScan [facility] Model 5076 CapSureFix Novus [facility] Model 0144 Endotak Endurance Rx [facility] Pacing Mode DDDR [facility] Serial Number [id number] [facility] Serial Number [id number] [facility] Serial Number [id number] [facility] Serial Number [id number] [facility] Test Charge Energy 18 J [facility] Test Charge Time 4.464 [facility] Therapy Status (Vent) Enabled [facility] Thresh RA Capture Amplitude (volts) 0.625 V [facility] Thresh RA Capture Duration (ms) 0.4 ms [facility] Thresh RA Sensing Amplitude (mvolts) 2 mV [facility] Thresh RV Capture Amplitude (VOLTS) 1.375 V [facility] Thresh RV Capture Duration (MS) 0.4 ms [facility] Thresh RV Sensing Amplitude (MVOLTS) 10.375 mV [facility] Tracking Rate (bpm) 90 {beats}/min [facility] VF Zone Detection Interval 450 ms [facility] VF Zone Therapy Configuration 2 ATP(s) + 0 Shock(s) [facility] AV Delay Adaptive Paced Minimum (ms) 350 ms [facility] AV Delay Adaptive Rate Maximum (bpm) 90 {beats}/min [facility] AV Delay Adaptive Rate Minimum (bpm) 75 {beats}/min [facility] AV Delay Adaptive Sensed Minimum (ms) 250 ms [facility] AV Delay Adaptive Status ENABLED [facility] AV Delay Paced (ms) 100 ms [facility] AV Delay Sensed (ms) 70 ms [facility] Battery Voltage 2.85 V [facility] Scott LV Pacing Polarity BI [facility] Scott RA Pacing Amplitude (volts) 2 V [facility] Scott RA Pacing Polarity BI [facility] Scott RA Pacing Pulse Width (ms) 0.4 ms [facility] Scott RA Sensing Amplitude (mvolts) 0.3 mV [facility] Scott RA Sensing Blanking Period (ms) 150 ms [facility] Scott RA Sensing Polarity BI [facility] Scott RA Sensing Refractory Period (ms) 250 ms [facility] Scott RV Pacing Amplitude (volts) 2.75 V [facility] Scott RV Pacing Polarity BI [facility] Scott RV Pacing Pulse Width (ms) 0.4 ms [facility] Scott RV Sensing Amplitude (mvolts) 0.3 mV [facility] Scott RV Sensing Blanking Period (ms) 200 ms [facility] Scott RV Sensing Polarity BI [facility] Detection Configuration (Vent) 2 - Zone [facility] FastVT_Detection Interval 450 ms [facility] FastVT_Therapy Configuration 2 ATP(s) + 0 Shock(s) [facility] ICD AFIB DetectionStatus DISABLED [facility] ICD ATAF DetectionInterval ms 450 ms [facility] ICD ATAF DetectionStatus ENABLED [facility] ICD ATAF TherapyConfiguration 2 ATP(s) + 0 Shock(s) [facility] ICD FastVT DetectionStatus ENABLED [facility] ICD-ADLRATE_BPM 85 {beats}/min [facility] ICD-AMS EPISODES 133 {beats}/min [facility] ICD-ATP Episodes (Vent) 0 [facility] ICD-ATRIALFIBRILLATION 117 Cl [facility] ICD-ATRIALTACHYCARDIA 117 [facility] ICD-Counters Cleared Date 09/23/2016 [facility] ICD-Device Sri CLAYT [facility] ICD-LEADIMPEDANCEATRIA L 342 ohm [facility] ICD-Percent Pacing (Atrial) 67.54 % [facility] ICD-Percent Pacing (Vent) 96.8 % [facility] ICD-PMT Intervention ENABLED [facility] ICD-PVC Intervention ENABLED [facility] ICD-Rate Modulation Acceleration Reaction 30 s [facility] ICD-Rate Modulation Deceleration Exercise [facility] ICD-Rate Modulation Rogers 3 [facility] ICD-Rate Modulation Threshold MediumHigh [facility] ICD-Shocks Aborted (Vent) 0 [facility] XCC-TAEPOE-FBVOHWOXX 0 [facility] ICD-SHOCKSABORTED 0 [facility] ICD-SHOCKSDELIVEREDVEN TRICULAR 0 [facility] ICD-Ventricular Fibrillation 0 [facility] Implant Date 07/03/2005 [facility] Implant Date 11/30/2002 [facility] Lead Impedance (LV) 4047 ohm [facility] Lead Impedance (RV) 703 ohm [facility] Lead Impedance High Voltage 60 ohm [facility] Lead1 Emilyg MDT [facility] Lead2 Emilyg MDT [facility] Lead3 Mfg GDT [facility] Location LV [facility] Location RA [facility] Location RV [facility] Lower Rate (bpm) 80 {beats}/min [facility] LV PACING % 0 % [facility] Max Sensor Rate (bpm) 90 {beats}/min [facility] MDT_PROG_TACHY_ZONE_DE TECTIONS_STATUS ENABLED [facility] Model [id number] Viva XT HOOK UP DRIVER-D [facility] Model 4196 Attain Ability MRI SureScan [facility] Model 5076 CapSureFix Novus [facility] Model 0144 [employer] Rx [facility] Pacing Mode DDDR [facility] Serial Number [id number] [facility] Serial Number [id number] [facility] Serial Number [id number] [facility] Serial Number [id number] [facility] Test Charge Energy 18 J [facility] Test Charge Time 4.464 [facility] Therapy Status (Vent) Enabled [facility] Thresh RA Capture Amplitude (volts) 0.625 V [facility] Thresh RA Capture Duration (ms) 0.4 ms [facility] Thresh RA Sensing Amplitude (mvolts) 2 mV [facility] Thresh RV Capture Amplitude (VOLTS) 1.375 V [facility] Thresh RV Capture Duration (MS) 0.4 ms [facility] Thresh RV Sensing Amplitude (MVOLTS) 10.375 mV [facility] Tracking Rate (bpm) 90 {beats}/min [facility] VF Zone Detection Interval 450 ms [facility] VF Zone Therapy Configuration 2 ATP(s) + 0 Shock(s) [facility] No Panel Informationon 06-01 [facility] _ [facility] ICD-ATRIALTACHYCARDIA 0 [facility] ICD-Fast Ventricular Tachycardia 0 [facility] Implant Date 09/23/2016 [facility] BLANK _ [facility] ICD-ATRIALTACHYCARDIA 0 [facility] ICD-Fast Ventricular Tachycardia 0 [facility] Implant Date 09/23/2016 [facility] Office Visit (Cardiology)on 04-24-2022 Follow-up visit Diagnoses/Problems Assessed Paroxysmal atrial fibrillation (427.31) (I48.0) Ischemic cardiomyopathy (414.8) (I25.5) H/O ventricular tachycardia (V12.59) (Z86.79) Atrial tachycardia (427.89) (I47.1) Atrial flutter, unspecified type (427.32) (I48.92) High risk medication use (V58.69) (Z79.899) Biventricular implantable cardioverter-defibrillato r (ICD) in situ (V45.02) (Z95.810) Encounter to discuss test results (V65.49) (Z71.2) Encounter for medication counseling (V65.49) (Z71.89) Overweight with body mass index (BMI) of 29 to 29.9 in adult (278.02,V85.25) (E66.3,Z68.29) Former smoker (V15.82) (Z87.891) QUIT 02/2018 had restarted then requit 08/2021 Mixed hyperlipidemia (272.2) (E78.2) Mechanical complication of implantable cardioverter-defibrillato r (ICD) (996.04) (T82.198A) Orders Atrial flutter, unspecified type, Atrial tachycardia, Ischemic cardiomyopathy Renew: Metoprolol Succinate ER 100 MG Oral Tablet Extended Release 24 Hour; TAKE 1 TABLET Bedtime Biventricular implantable cardioverter-defibrillato r (ICD) in situ Pacemaker Interrogation; Status:Active - Retrospective Authorization; Requested for:[id number]; Health Maintenance Renew: Isosorbide Mononitrate ER 30 MG Oral Tablet Extended Release 24 Hour; TAKE 1 TABLET DAILY Avoid alcoholic beverages.; Status:Complete - Retrospective Authorization; Done: [id number] Avoid foods and beverages that contain caffeine.; Status:Complete - Retrospective Authorization; Done: [id number] Begin or continue regular aerobic exercise. Gradually work up to at least 3 sessions of 30 minutes of exercise a week.; Status:Complete - Retrospective Authorization; Done: [id number] Diets that are low in carbohydrates and high in protein are very popular for weight loss.; Status:Complete - Retrospective Authorization; Done: [id number] Eat a low fat and low cholesterol diet.; Status:Complete - Retrospective Authorization; Done: [id number] Please bring all medicines, vitamins, and herbal supplements with you when you come to the office.; Status:Complete - Retrospective Authorization; Done: 14Amw8077 Restrict the salt in your diet by avoiding highly salted foods.; Status:Complete - Retrospective Authorization; Done: 97Qtn4600 Health Maintenance, Overweight with body mass index (BMI) of 29 to 29.9 in adult Losing just 5 to 10 pounds may lower your risk of health problems.; Status:Complete - Retrospective Authorization; Done: 20Vbl2400 SocHx: Former smoker Tobacco Use Screening; Status:Complete; Done: [id number] Patient Instructions Follow up with Dr. Nunez in 6 months and 1 year with a device check. Drink plenty of water daily. I, Latesha Burch [facility], am scribing for and in the presence of, Dr. Margareth Nunez, MA, FAC, FACP, [facility]. No list or bottles for comparison, patient or family member to call with any updates [phone] The provider reviewed the following test(s) and result(s) with the patient: ECG Chief Complaint Patient is here today for a scheduled follow up Adult Risk Screening Initial Fall Risk Screening: ESSENCE has not fallen in the last 6 months. Tobacco Screening: ESSENCE does not use tobacco. Has not used tobacco in the past 6 months. History of Present Illness She is here for electrophysiology follow-up. She denies any arrhythmia symptoms. She has been under a lot of stress. Her mother from cancer earlier this year. Her father has been diagnosed with cancer as well. The patient denies any lightheadedness, near syncope, syncope, palpitation, chest discomfort, dyspnea, HANKINS with mild exertion, PND, or edema. The device site continues to be well-healed and unchanged. The patient denies any redness, swelling, or drainage of the site. See ROS, PMH, FMH, and surgical history for details. She has remote history of [place] , cardiogenic shock, PCI circumflex and iABP, with persistent severe LV dysfunction. She later occluded her cicumflex. Years later, she had HF and severe MR and underwent mitral valve repair at [facility]. She had recurrent VT and atrial arrhythmias, and underwent several ablations and repeat percutaneous MVR at [facility]. After her MVR and ablation in July,, she had KALLI when then improved. She has had recurrent ICD shocks for atrial flutter. Personal review of ECG and cardiac data reviewed Outside records: EP study and successful ablation of atrial flutter. Multiple atrial tachycardias, possible left atrial tachycardia also noted and not targeted for ablation. December 2021. Discharge summary [facility] Oct 2021 Cardiology consult Oct 2021 ECG Oct 2021 H and P Oct 2021 Echo Oct 2021. LVEF 15% ECG: Today. AV paced rhythm left axis deviation. Paced QT 480 See signed ECG and check /Paceart. Imp / Plan Paroxsymal atrial flutter. Mutliple ICD shocks. Status post ablation of atrial flutter no recurrence of inappropriate shocks. Chronic systolic heart failure. Stable NYHA III C HF. Chronic systolic heart failur (more content not included)... Normal [facility] Tobacco Screening.on 022 Fall risk assessment a) No falls within the last year [facility] [address] DO Work Phone: Tobacco use status CPHS a) Yes [facility] [address] DO Work Phone: Tobacco Screening. Yes [facility] [address] DO Work Phone: XR LSPINE 2_3 VIEWSon 2021 XR LSPINE 2_3 VIEWS EXAMINATION: XR LSPI NE 2_3 VIEWS HISTORY: Low back pain since picking up heavy object 1 month ago COMPARISON: No relevant comparison available. FINDINGS: BONES: Moderate compression fracture of T11. Superior endplate irregularity of L2. Posterior mechanical stabilization L5-S1 via bilateral pedicle screws and rods, and L5 posterior decompression. Moderate degenerative facet arthropathy L3-L4 through L5-S1. DISC SPACES: Mild narrowing L3-L4. Moderate narrowing L4-L5. Osseous fusion L5-S1. PARASPINOUS: Negative. No paraspinous abnormality is seen. OTHER: Prior cardiac valve replacement. IMPRESSION: 1. Age-indeterminate moderate compression fracture of T11. 2. Suspect mild superior endplate compression fracture of L2, although this could be secondary to degenerative changes. 3. Moderate degenerative disc disease and facet arthropathy of the lower lumbar spine. 4. Surgical changes of lower lumbar spine without evidence of hardware failure. Electronically authenticated by: JC BRAVO Date: 2022-04-24 07:14 Normal [facility] TRANSFERRINon 04-17-2022 Transferrin [Mass/Vol] 418 mg/dL Critically high 192-364 [facility] Comment on above: Performed By: #### T RANSFR #### [facility] Laboratory [address] [address] [address] Melissa Helm CBC AUTO DIFFon 04-16-2022 BASO # 0.2 103/ul Critically high 0.0-0.1 [facility] Comment on above: Performed By: #### C BC ####[facility] [address] [id number]. Melissa Helm Basophils/100 WBC (Bld) 1.2 % Normal 0.2-2.0 [facility] Comment on above: Performed By: #### C BC ####[facility] [address] [place], [place] [id number]. Melissa Helm EO # 0.2 103/ul Normal 0.0-0.7 [facility] Comment on above: Performed By: #### C BC ####[facility] [address] [place], [place] [id number]. Melissa Helm Eosinophils/100 WBC (Bld) 1.9 % Normal 0.9-7.0 [facility] Comment on above: Performed By: #### C BC ####[facility] [address] [place], [place] [address]Dr. Melissa Helm Erythrocyte distribution width (RBC) [Ratio] 22.6 % Critically high 11.0-15.0 [facility] Comment on above: Performed By: #### C BC ####[facility] [address] [place], [place] [address]Dr. Melissa Helm Hematocrit (Bld) [Volume fraction] 39.2 % Normal 36.0-48.0 [facility] Comment on above: Performed By: #### C BC ####[facility] [address] [place], [place] [address]Dr. Melissa Helm Hemoglobin (Bld) [Mass/Vol] 10.8 g/dL Critically low 12.0-16.0 [facility] Comment on above: Performed By: #### C BC ####[facility] [address] [place], [place] [address]Dr. Melissa Helm IG # 0.03 10e3/ul Normal 0.00-0.03 [facility] Comment on above: Performed By: #### C BC ####[facility] [address] [place], [place] [id number]. Melissa Helm IG % 0.2 % Normal 0.0-0.5 [facility] Comment on above: Performed By: #### C BC ####[facility] [address] [place] [phone] Helm LYMPH # 2.5 103/ul Normal 1.2-3.8 [facility] Comment on above: Performed By: #### C BC ####[facility] [address] [phone] Helm Lymphocytes/100 WBC (Bld) 19.8 % Critically low 20.5-60.0 [facility] Comment on above: Performed By: #### C BC ####[facility] [address] [phone] Helm MANUAL DIFF REQ NO Normal [facility] Comment on above: Performed By: #### C BC ####[facility] [address] [phone] Helm MCH (RBC) [Entitic mass] 18.6 pg Critically low 26.7-34.0 [facility] Comment on above: Performed By: #### C BC ####[facility] [address] [address] [phone] Helm MCHC (RBC) [Mass/Vol] 27.6 g/dL Critically low 29.9-35.2 [facility] Comment on above: Performed By: #### C BC ####[facility] [address] [phone] Helm MCV (RBC) [Entitic vol] 67.4 fL Critically low 81.0-99.0 [facility] Comment on above: Performed By: #### C BC ####[facility] [address] [phone] Helm MONO # 1.2 103/ul Critically high 0.3-0.8 [facility] Comment on above: Performed By: #### C BC ####[facility] [address] [phone] Helm Monocytes/100 WBC (Bld) 10.0 % Normal 1.7-12.0 [facility] Comment on above: Performed By: #### C BC ####[facility] [address] [phone]. Melissa Helm NEUT # 8.3 103/ul Critically high 1.4-6.5 [facility] Comment on above: Performed By: #### C BC ####[facility] [address] [phone]. Melissa Helm Neutrophils/100 WBC (Bld) 66.9 % Normal 43.0-75.0 [facility] Comment on above: Performed By: #### C BC ####[facility] [address] [address]Dr. Melissa Helm PLT 235 103/ul Normal 150-450 [facility] Comment on above: Performed By: #### C BC ####[facility] [address] [place], [place] [address]Dr. Melissa Helm RBC 5.82 106/ul Critically high 4.20-5.40 [facility] Comment on above: Performed By: #### C BC ####[facility] [address] [place], [place] [id number]. Melissa Helm WBC 12.4 103/ul Critically high 4.0-11.0 [facility] Comment on above: Performed By: #### C BC ####[facility] [address] [place], [place] [id number]. Melissa Helm FERRITINon 04-16-2022 Ferritin [Mass/Vol] 27.0 ng/mL Normal 8.0-252.0 [facility] Comment on above: Performed By: #### F ETIBC, FERR ####[facility] [address] [place], [place] [id number]. Melissa Helm FREE T3on 04-16-2022 FREE T3 3.09 pg/mlL Normal 2.18-3.98 [facility] Comment on above: Performed By: #### C MP, FT3, LIPID, TSH ####[facility] [address] [address]Dr. Melissa Helm IRON AND TIBCon 04-16-2022 % SATURATION 5.4 % Normal [facility] Comment on above: Performed By: #### F ETIBC, FERR ####[facility] [address] [phone]. Melissa Helm Iron [Mass/Vol] 26.0 ug/dL Critically low 50.0-170.0 [facility] Comment on above: Performed By: #### F ETIBC, FERR ####[facility] [address] [address] [phone]. Melissa Helm TIBC DIRECT 483.0 ug/dL Critically high 250.0-450. 0 [facility] Comment on above: Performed By: #### F ETIBC, FERR ####[facility] [address] [phone]. Melissa Helm LIPID PROFILEon 04-16-2022 CHOL-HDL RATIO NORM SEE BELOW Normal [facility] Comment on above: Result Comment: 3.3 - 4.4 LOW RISK 4.4 - 7.1 AVERAGE RISK 7.1 - 11.0 MODERATE RISK >11.0 HIGH RISK Performed By: #### C MP, FT3, LIPID, TSH ####[facility] [address] [address]Dr. Melissa Helm Cholesterol [Mass/Vol] 131 mg/dL Normal <=[address] [facility] Comment on above: Performed By: #### C MP, FT3, LIPID, TSH ####[facility] [address] [phone]. Melissa Helm Cholesterol in HDL [Mass/Vol] 51 mg/dL Normal 40-60 [facility] Comment on above: Performed By: #### C MP, FT3, LIPID, TSH ####[facility] [address] [address]Dr. Melissa Helm Cholesterol in LDL [Mass/Vol] 54.0 mg/dL Normal [facility] Comment on above: Performed By: #### C MP, FT3, LIPID, TSH ####[facility] [address] [phone]. Melissa Helm Cholesterol.total/Chol esterol in HDL [Mass ratio] 2.6 {ratio} Normal [facility] Comment on above: Performed By: #### C MP, FT3, LIPID, TSH ####[facility] [address] [address]Dr. Melissa Helm HDL NORMAL > or = 60 mg/dl - LO W CARDIOVASCULAR RISK <40 mg/dl - HIGH CARDIOVASCULAR RISK Normal [facility] Comment on above: Performed By: #### C MP, FT3, LIPID, TSH ####[facility] [address] [address]Dr. Melissa Helm LDL CALC NORMAL SEE BELOW Normal [facility] Comment on above: Result Comment: <100 mg/dl OPTIMAL 100 - 129 mg/dl NEAR OR ABOVE OPTIMAL 130 - 159 mg/dl BORDERLINE HIGH 160 - 189 mg/dl HIGH >190 mg/dl VERY HIGH Performed By: #### C MP, FT3, LIPID, TSH ####[facility] [address] [address]Dr. Melissa Helm Triglyceride [Mass/Vol] 130 mg/dL Normal <=150 [facility] Comment on above: Performed By: #### C MP, FT3, LIPID, TSH ####[facility] [address] [address]Dr. Melissa Helm VLDL CALC 26.0 mg/dL Normal [facility] Comment on above: Performed By: #### C MP, FT3, LIPID, TSH ####[facility] [address] [address]Dr. Melissa Helm PROF 14(COMP METB)on 022 Albumin [Mass/Vol] 4.0 g/dL Normal 3.4-5.0 [facility] Comment on above: Performed By: #### C MP, FT3, LIPID, TSH ####[facility] [address] [address]Dr. Melissa Helm Albumin/Globulin [Mass ratio] 0.9 {ratio} Normal [facility] Comment on above: Performed By: #### C MP, FT3, LIPID, TSH ####[facility] [address] [address]Dr. Melissa Helm ALP [Catalytic activity/Vol] 263 U/L Critically high 46-116 [facility] Comment on above: Performed By: #### C MP, FT3, LIPID, TSH ####[facility] [address] [address]Dr. Melissa Helm ALT [Catalytic activity/Vol] 9 U/L Critically low 14-59 [facility] Comment on above: Performed By: #### C MP, FT3, LIPID, TSH ####[facility] [address] [address]Dr. Melissa Helm Anion gap [Moles/Vol] 14.7 mmol/L Normal [facility] Comment on above: Performed By: #### C MP, FT3, LIPID, TSH ####[facility] [address] [place], [place] [address]Dr. Melissa Helm AST [Catalytic activity/Vol] 15 U/L Normal 15-37 [facility] Comment on above: Performed By: #### C MP, FT3, LIPID, TSH ####[facility] [address] [place], [place] [address]Dr. Melissa Helm Bilirubin [Mass/Vol] 0.4 mg/dL Normal 0.2-1.0 [facility] Comment on above: Performed By: #### C MP, FT3, LIPID, TSH ####[facility] [address] [address]Dr. Melissa Helm Calcium [Mass/Vol] 9.1 mg/dL Normal 8.5-10.1 [facility] Comment on above: Performed By: #### C MP, FT3, LIPID, TSH ####[facility] [address] [place], [place] [address]Dr. Melissa Helm Chloride [Moles/Vol] 98 mmol/L Normal 98-107 [facility] Comment on above: Performed By: #### C MP, FT3, LIPID, TSH ####[facility] [address] [address]Dr. Melissa Helm CO2 [Moles/Vol] 27.5 mmol/L Normal 21.0-32.0 [facility] Comment on above: Performed By: #### C MP, FT3, LIPID, TSH ####[facility] [address] [address]Dr. Melissa Helm Creatinine [Mass/Vol] 1.08 mg/dL Critically high 0.55-1.02 [facility] Comment on above: Performed By: #### C MP, FT3, LIPID, TSH ####[facility] [address] [address]Dr. Sophiadomingo Volodymyr EGFR-AF WELSH >60 Normal >=60 [facility] Comment on above: Performed By: #### C MP, FT3, LIPID, TSH ####[facility] [address] [address]Dr. Melissa Helm EGFR-NON AF WELSH 53 mL/min/1.73m2 Critically low >=60 [facility] Comment on above: Performed By: #### C MP, FT3, LIPID, TSH ####[facility] [address] [address]Dr. Melissa Helm Globulin (S) [Mass/Vol] 4.3 g/dL Normal [facility] Comment on above: Performed By: #### C MP, FT3, LIPID, TSH ####[facility] [address] [address]Dr. Melissa Helm Glucose [Mass/Vol] 80 mg/dL Normal 74-106 [facility] Comment on above: Performed By: #### C MP, FT3, LIPID, TSH ####[facility] [address] [address]Dr. Melissa Helm Potassium [Moles/Vol] 3.2 mmol/L Critically low 3.5-5.1 [facility] Comment on above: Performed By: #### C MP, FT3, LIPID, TSH ####[facility] [address] [address]Dr. Melissa Helm Protein [Mass/Vol] 8.3 g/dL Critically high 6.4-8.2 [facility] Comment on above: Performed By: #### C MP, FT3, LIPID, TSH ####[facility] [address] [address]Dr. Melissa Helm Sodium [Moles/Vol] 137 mmol/L Normal 136-145 [facility] Comment on above: Performed By: #### C MP, FT3, LIPID, TSH ####[facility] [address] [address]Dr. Melissa Helm Urea nitrogen [Mass/Vol] 22.0 mg/dL Critically high 7.0-18.0 [facility] Comment on above: Performed By: #### C MP, FT3, LIPID, TSH ####[facility] [address] [address]Dr. Melissa Helm Urea nitrogen/Creatinine [Mass ratio] 20.4 mg/mg Normal [facility] Comment on above: Performed By: #### C MP, FT3, LIPID, TSH ####[facility] [address] [address]Dr. Melissa Helm TSHon 04-16-2022 TSH 30.570 uIU/mL Critically high 0.358-3.74 0 [facility] Comment on above: Performed By: #### C MP, FT3, LIPID, TSH ####[facility] [address] [address]Dr. Melissa Helm ICD REMOTE CHECKon 2 AV Delay Adaptive Paced Minimum (ms) 350 ms [facility] AV Delay Adaptive Rate Maximum (bpm) 90 {beats}/min [facility] [facility] AV Delay Adaptive Rate Minimum (bpm) 75 {beats}/min [facility] AV Delay Adaptive Sensed Minimum (ms) 250 ms [facility] AV Delay Adaptive Status ENABLED [facility] AV Delay Paced (ms) 100 ms [facility] AV Delay Sensed (ms) 70 ms [facility] Battery Voltage 2.87 V [facility] Scott LV Pacing Polarity BI [facility] Scott RA Pacing Amplitude (volts) 2 V [facility] Scott RA Pacing Polarity BI [facility] Scott RA Pacing Pulse Width (ms) 0.4 ms [facility] Scott RA Sensing Amplitude (mvolts) 0.3 mV [facility] Scott RA Sensing Blanking Period (ms) 150 ms [facility] Scott RA Sensing Polarity BI [facility] Scott RA Sensing Refractory Period (ms) 250 ms [facility] Scott RV Pacing Amplitude (volts) 3 V [facility] Scott RV Pacing Polarity BI [facility] Scott RV Pacing Pulse Width (ms) 0.4 ms [facility] Scott RV Sensing Amplitude (mvolts) 0.3 mV [facility] Scott RV Sensing Blanking Period (ms) 200 ms [facility] Scott RV Sensing Polarity BI [facility] Detection Configuration (Vent) 2 - Zone [facility] FastVT_Detection Interval 450 ms [facility] FastVT_Therapy Configuration 2 ATP(s) + 0 Shock(s) [facility] ICD AFIB DetectionStatus DISABLED [facility] ICD ATAF DetectionInterval ms 450 ms [facility] ICD ATAF DetectionStatus ENABLED [facility] ICD ATAF TherapyConfiguration 2 ATP(s) + 0 Shock(s) [facility] ICD FastVT DetectionStatus ENABLED [facility] ICD-ADLRATE_BPM 85 {beats}/min [facility] ICD-AMS EPISODES 133 {beats}/min [facility] ICD-ATP Episodes (Vent) 0 [facility] ICD-ATRIALFIBRILLATION 339 Cl [facility] ICD-ATRIALTACHYCARDIA 339 [facility] ICD-ATRIALTACHYCARDIA 5 [facility] ICD-ATRIALTACHYCARDIA 7 [facility] ICD-Counters Cleared Date 09/23/2016 [facility] ICD-Device Mfg MDT [facility] ICD-Fast Ventricular Tachycardia 7 [facility] ICD-LEADIMPEDANCEATRIA L 342 ohm [facility] ICD-Percent Pacing (Atrial) 58.38 % [facility] ICD-Percent Pacing (Vent) 88.05 % [facility] ICD-PMT Intervention ENABLED [facility] ICD-PVC Intervention ENABLED [facility] ICD-Rate Modulation Acceleration Reaction 30 s [facility] ICD-Rate Modulation Deceleration Exercise [facility] ICD-Rate Modulation Rogers 3 [facility] ICD-Rate Modulation Threshold MediumHigh [facility] ICD-Shocks Aborted (Vent) 0 [facility] BAT-SXYTYS-QSSYQINNE 0 [facility] ICD-SHOCKSABORTED 0 [facility] ICD-SHOCKSDELIVEREDVEN TRICULAR 0 [facility] ICD-Ventricular Fibrillation 0 [facility] Implant Date 07/03/2005 [facility] Implant Date 11/30/2002 [facility] Lead Impedance (LV) 4047 ohm [facility] Lead Impedance (RV) 703 ohm [facility] Lead Impedance High Voltage 57 ohm [facility] Lead1 Mfg MDT [facility] Lead2 Mfg MDT [facility] Lead3 Mfg GDT [facility] Location LV [facility] Location RA [facility] Location RV [facility] Lower Rate (bpm) 80 {beats}/min [facility] LV PACING % 0 % [facility] Max Sensor Rate (bpm) 90 {beats}/min [facility] MDT_PROG_TACHY_ZONE_DE TECTIONS_STATUS ENABLED [facility] Model [id number] Viva XT HOOK UP DRIVER-D [facility] Model 4196 Attain Ability MRI SureNvan [facility] Model 5076 CapSureFix Novus [facility] Model 0144 [employer] Rx [facility] Pacing Mode DDDR [facility] Serial Number [id number] [facility] Serial Number [id number] [facility] Serial Number [id number] [facility] Serial Number [id number] [facility] Test Charge Energy 18 J [facility] Test Charge Time 4.354 [facility] Therapy Status (Vent) Enabled [facility] Thresh RA Capture Amplitude (volts) 0.625 V [facility] Thresh RA Capture Duration (ms) 0.4 ms [facility] Thresh RA Sensing Amplitude (mvolts) 2 mV [facility] Thresh RV Capture Amplitude (VOLTS) 1.5 V [facility] Thresh RV Capture Duration (MS) 0.4 ms [facility] Thresh RV Sensing Amplitude (MVOLTS) 11.625 mV [facility] Tracking Rate (bpm) 90 {beats}/min [facility] VF Zone Detection Interval 450 ms [facility] VF Zone Therapy Configuration 2 ATP(s) + 0 Shock(s) [facility] No Panel Informationon 04-12 BLANK _ [facility] ICD-ATRIALTACHYCARDIA 0 [facility] ICD-Fast Ventricular Tachycardia 0 [facility] Implant Date 09/23/2016 [facility] COAGULATION SCREENon 022 aPTT Coag (Bld) [Time] 29 s Normal 26 - 39 [facility] Comment on above: Result Comment: THE APTT IS NO LONGER USED FOR MONITORING UNFRACTIONATED HEPARIN THERAPY. FOR MONITORING HEPARIN THERAPY, USE THE HEPARIN ASSAY. Performed By: #### C OAGS #### [address] [phone] PT Coag (PPP) [Time] 16.1 s High 9.8 - 13.4 [facility] Comment on above: Performed By: #### C OAGS #### [address] [phone] PT, INR 1.4 High 0.9 - 1.1 [facility] Comment on above: Performed By: #### C OAGS #### [address] [phone] Discharge [id number] 022 Discharge Profile2 Discharge Orders: DNAR: Code Status at Discharge: Full Code Appointments: Follow-Up Appointment 02: Physician/Dept/ServiceDrTarun Nunez Reason for ReferralFollow-up Scheduled Date/Mmag46-Mry-1400 13:20 [facility] Office Phone [phone] Electronic Signatures: Axel Rangel (COOR) (Signed 21-Jan-2022 09:13) Authored: Discharge Orders, Appointments, Gold Form - Court Of Appeals Judge Summary Last Updated: 21-Jan-2022 09:13 by Axel Rangel (COOR) Normal [facility] Laboratory - Coagulationon 0 01-21-2022 aPTT Coag (PPP) [Time] 29 s 26 - [address] Work Phone: Comment on above: THE APTT IS NO LONGE R USED FOR MONITORING UNFRACTIONATED HEPARIN THERAPY. FOR MONITORING HEPARIN THERAPY, USE THE HEPARIN ASSAY. INR Coag (PPP) [Relative time] 1.4 {INR} above high threshold 0.9 - 1.[address] Work Phone: PT Coag (PPP) [Time] 16.1 s above high threshold 9.8 - 13.[address] Work Phone: No Panel Informationon 01-21 [email or web address] ?XquciafGE=[id number]&Date =21-01-2022&Time=17%3a39% 3a41%3a00&TestType=ECG&Si te=11&OutputType=PDF&Ext= PDF [facility] [place] Work Phone: [phone] Ventricular-paced rhythm [facility] [address] [place] Work Phone: [phone] [facility] [place] Work Phone: [phone] [facility] [place] Work Phone: [phone] [facility] [place] Work Phone: [phone] 1 [facility] [place] Work Phone: [phone] [facility] [place] Work Phone: [phone] [facility] [place] Work Phone: [phone] [facility] [place] Work Phone: [phone] 1 [facility] [place] Work Phone: [phone] 1 [facility] [place] Work Phone: [phone] 1 [facility] [place] Work Phone: [phone] [facility] [place] Work Phone: [phone] [facility] [place] Work Phone: [phone] [email or web address] ?[email or web address]=[id number]&Date =21-01-2022&Time=09%3a40% 3a37%3a00&TestType=ECG&Si te=11&OutputType=PDF&Ext= PDF [facility] [place] Work Phone: Atrial-paced rhythm [facility] [place] Work Phone: [phone] [facility] [place] Work Phone: [phone] 1 [facility] [place] Work Phone: [phone] [facility] [address] [place] Work Phone: [phone] 1 [facility] [address] [place] Work Phone: [phone] 1 [facility] [address] [place] Work Phone: [phone] 1 [facility] [address] [place] Work Phone: [phone] [facility] [address] [place] Work Phone: [phone] 1 [facility] [address] [place] Work Phone: [phone] [facility] [address] [place] Work Phone: [phone] [facility] [address] [place] Work Phone: [phone] 1 [facility] [address] [place] Work Phone: [phone] 1 [facility] [address] [place] Work Phone: [phone] 1 [facility] [address] [place] Work Phone: [phone] 1 [facility] [address] [place] Work Phone: [phone] [facility] [address] [place] Work Phone: [phone] Order Reconciliationon 01-21 Order Reconciliation Page 1 Admission Reconciliation Document Reconciliation Type: Observation requested on behalf of Yessi Miller (Advanced Practice Nurse) done by Yessi Miller ([facility]) Observation - Reconciliation: 21-Jan-2022 16:52 by: Yessi Miller ([facility]) Home MedicationsEnteredLast Dose TakenReconciled with current Order Reconciliation Comment/ Additional Information amiodarone 400 mg oral tablet 1 tab(s) orally once a jkl31-Omv-941021-Jan-2022 AM Amiodarone Tablet (CORDARONE; PACERONE)DOSE = 400 mg Oral Every 24 Hoursamiodarone 400 mg oral tablet continued as the inpatient order Amiodarone aspirin 325 mg oral delayed release tablet 1 tab(s) orally once a day x 30 days, then can go back to aspirin 81mg daily.21-Jan-2022 Reviewed and Held aspirin 81 mg oral delayed release tablet 1 tab(s) orally once a day. HOLD while on aspirin 325mg daily x 30 days.- AM Reviewed and Held atorvastatin 80 mg oral tablet 1 tab(s) orally once a ixr75-Xdf-556821-Jan-2022 PM Atorvastatin Tablet (LIPITOR)DOSE = 80 mg Oral Daily atorvastatin 80 mg oral tablet continued as the inpatient order Atorvastatin jftwvcyyfl-hast-gvxvugin 50-300-40mg 1 cap(s) orally 2 times a jws70-Pkh-784021-Jan-2022 Reviewed and Held escitalopram 20 mg oral tablet 1 tab(s) orally once a lxn15-Bee-071721-Jan-2022 AM Escitalopram Tablet (LEXAPRO)DOSE = 20 mg Oral Daily escitalopram 20 mg oral tablet continued as the inpatient order Escitalopram KlonoPIN Wafer 0.5 mg oral tablet, disintegrating 1 tab(s) orally 3 times daily [id number] PM clonazePAM (KLONOPIN) TabletDOSE = 0.5 mg Oral Every 8 HoursKlonoPIN Wafer 0.5 mg oral tablet, disintegrating continued as the inpatient order clonazePAM (KLONOPIN) Mag-Ox 400 oral tablet 1 tab(s) orally 2 times a hus78-Cyc-955509-Qtm-8506 AM Magnesium Oxide Tablet (Mag-Ox)DOSE = 400 mg Oral DailyMag-Ox 400 oral tablet continued as the inpatient order Magnesium Oxide Metoprolol Succinate ER 100 mg oral tablet, extended release 1 tab(s) orally once a res54-Iqg-027463-Mjp-1732 PM Metoprolol Succinate Extended Release Tablet, Extended Release (TOPROL-XL)DOSE = 100 mg Oral DailyMetoprolol Succinate ER 100 mg oral tablet, extended release continued as the inpatient order Metoprolol Succinate Extended Release Multiple Vitamins oral tablet, dispersible 1 tab(s) orally once a day [id number] Reviewed and Held Nitrostat 0.4 mg sublingual tablet 1 tab(s) sublingual every 5 minutes, As Zgvyyz02-Vhb-7481RPJWGMB UNKNOWN Nitroglycerin SubLingual Tablet (NITROSTAT)DOSE = 0.4 mg SubLingual Every 5 Minutes, PRN AnginaNitrostat 0.4 mg sublingual tablet continued as the inpatient order Nitroglycerin SubLingual omeprazole 40 mg oral delayed release capsule 1 cap(s) orally once a day [id number] AM Pantoprazole Enteric Coated Tablet (PROTONIX)DOSE = 40 mg Oral DailyNotes from Pharmacy: Substitution for Omeprazole 40 mg Oral Capsule Dailyomeprazole 40 mg oral delayed release capsule continued as the inpatient order Pantoprazole Potassium Chloride (Mac-Pklp-Xdb M20) 20 mEq oral tablet, extended release 1 tab(s) orally once a cdc24-Npx-612264-Pwi-7524 AM Potassium Chloride Extended Release Tablet, Extended ReleaseDOSE = 20 mEq Oral DailyPotassium Chloride (Xih-Mfnh-Yfm M20) 20 mEq oral tablet, extended release continued as the inpatient order Potassium Chloride Extended Release rOPINIRole 0.25 mg oral tablet 3 tab(s) orally once a day (at bedtime) [id number]-Fed-5599 PM rOPINIRole (REQUIP) TabletDOSE = 0.75 mg Oral At BedtimerOPINIRole 0.25 mg oral tablet continued as the inpatient order rOPINIRole (REQUIP) torsemide 20 mg oral tablet 1 tab(s) orally once a uwz38-Tjy-567581-Tbs-0339 AM Torsemide Tablet (DEMADEX)DOSE = 20 mg Oral Dailytorsemide 20 mg oral tablet continued as the inpatient order Torsemide traZODone 50 mg oral tablet 1 tab(s) orally once a day (at bedtime), As Needed [id number]-[id number] PM traZODone Tablet (DESYREL)DOSE = 50 mg Oral At Bedtime, PRN InsomniatraZODone 50 mg oral tablet continued as the inpatient order traZODone warfarin 5 mg oral tablet 1 tab(s) orally once a day. Resume 01/22/2022. [id number] 8:00 AM Reviewed and Held Additional Current Orders Acetaminophen Tablet (TYLENOL)DOSE = 650 mg Oral Every 6 Hours, PRN Pain - Mild (1-3) Aspirin Enteric Coated Enteric Coated Tablet (ECOTRIN)DOSE = 325 mg Oral Daily Chlorhexidine Gluconate 4% Topical Soap (HIBICLENS)DOSE = 1 application(s) Topical OnceApply to Groin Sodium Chloride 0.9% Infusion IV Bag Volume = 1,000 mL Run at: 10 mL/hr IntraVenous Normal [facility] Order Reconciliation Page 1 Discharge Reconciliation Document Reconciliation Type: Discharge requested on behalf of Yessi Miller (Advanced Practice Nurse) done by Yessi Miller ([facility]) Discharge - Reconciliation: 21-Jan-2022 16:48 by: Yessi Miller ([facility]) Home Medications EnteredHOME MEDICATIONS AT DISCHARGE DateReconciliation Comment/ Additional Information amiodarone 400 mg oral tablet 1 tab(s) orally once a day 30-Dec-2021 10:25 amiodarone 400 mg oral tablet 1 tab(s) orally once a day 30-Dec-2021 10:25 amiodarone 400 mg oral tablet is continued as amiodarone 400 mg oral tablet aspirin 81 mg oral delayed release tablet 1 tab(s) orally once a day 30-Dec-2021 10:25 aspirin 81 mg oral delayed release tablet 1 tab(s) orally once a day. HOLD while on aspirin 325mg daily x 30 days. Discontinued; Copy/Discontinue aspirin 81 mg oral delayed release tablet is continued and modified atorvastatin 80 mg oral tablet 1 tab(s) orally once a day 30-Dec-2021 10:26 atorvastatin 80 mg oral tablet 1 tab(s) orally once a day 30-Dec-2021 10:26 atorvastatin 80 mg oral tablet is continued as atorvastatin 80 mg oral tablet jiqoqebykz-ccue-mwmftjqz 50-300-40mg 1 cap(s) orally 2 times a day 30-Dec-2021 10:27 abzmsvuzht-tnqv-siqsdyee 50-300-40mg 1 cap(s) orally 2 times a day 30-Dec-2021 10:27 syxbibfhfk-mvaw-iyxmsklm 50-300-40mg is continued as ldesakdeuj-ynyh-wrbkzgwp 50-300-40mg escitalopram 20 mg oral tablet 1 tab(s) orally once a day 30-Dec-2021 10:27 escitalopram 20 mg oral tablet 1 tab(s) orally once a day 30-Dec-2021 10:27 escitalopram 20 mg oral tablet is continued as escitalopram 20 mg oral tablet KlonoPIN Wafer 0.5 mg oral tablet, disintegrating 1 tab(s) orally 3 times daily 30-Dec-2021 10:29 KlonoPIN Wafer 0.5 mg oral tablet, disintegrating 1 tab(s) orally 3 times daily 30-Dec-2021 10:29 KlonoPIN Wafer 0.5 mg oral tablet, disintegrating is continued as KlonoPIN Wafer 0.5 mg oral tablet, disintegrating Lovenox 80 mg/0.8 mL injectable solution 21-Jan-2022 10:53 Discontinued; Discontinue from ORM Lovenox 80 mg/0.8 mL injectable solution is not required Mag-Ox 400 oral tablet 1 tab(s) orally 2 times a day 30-Dec-2021 10:30 Mag-Ox 400 oral tablet 1 tab(s) orally 2 times a day 30-Dec-2021 10:30 Mag-Ox 400 oral tablet is continued as Mag-Ox 400 oral tablet Metoprolol Succinate ER 100 mg oral tablet, extended release 1 tab(s) orally once a day 30-Dec-2021 10:30 Metoprolol Succinate ER 100 mg oral tablet, extended release 1 tab(s) orally once a day 30-Dec-2021 10:30 Metoprolol Succinate ER 100 mg oral tablet, extended release is continued as Metoprolol Succinate ER 100 mg oral tablet, extended release Multiple Vitamins oral tablet, dispersible 1 tab(s) orally once a day 30-Dec-2021 10:32 Multiple Vitamins oral tablet, dispersible 1 tab(s) orally once a day 30-Dec-2021 10:32 Multiple Vitamins oral tablet, dispersible is continued as Multiple Vitamins oral tablet, dispersible Nitrostat 0.4 mg sublingual tablet 1 tab(s) sublingual every 5 minutes, As Needed 30-Dec-2021 10:32 Nitrostat 0.4 mg sublingual tablet 1 tab(s) sublingual every 5 minutes, As Needed 30-Dec-2021 10:32 Nitrostat 0.4 mg sublingual tablet is continued as Nitrostat 0.4 mg sublingual tablet omeprazole 40 mg oral delayed release capsule 1 cap(s) orally once a day 30-Dec-2021 10:33 omeprazole 40 mg oral delayed release capsule 1 cap(s) orally once a day 30-Dec-2021 10:33 omeprazole 40 mg oral delayed release capsule is continued as omeprazole 40 mg oral delayed release capsule Potassium Chloride (Fmj-Shcw-Eee M20) 20 mEq oral tablet, extended release 1 tab(s) orally once a day 30-Dec-2021 10:33 Potassium Chloride (Liv-Tymw-Ioo M20) 20 mEq oral tablet, extended release 1 tab(s) orally once a day 30-Dec-2021 10:33 Potassium Chloride (Mzz-Anxo-Alm M20) 20 mEq oral tablet, extended release is continued as Potassium Chloride (Ard-Ogxb-Jqo M20) 20 mEq oral tablet, extended release rOPINIRole 0.25 mg oral tablet 3 tab(s) orally once a day (at bedtime) 30-Dec-2021 10:34 rOPINIRole 0.25 mg oral tablet 3 tab(s) orally once a day (at bedtime) 30-Dec-2021 10:34 rOPINIRole 0.25 mg oral tablet is continued as rOPINIRole 0.25 mg oral tablet torsemide 20 mg oral tablet 1 tab(s) orally once a day 30-Dec-2021 10:34 torsemide 20 mg oral tablet 1 tab(s) orally once a day 30-Dec-2021 10:34 torsemide 20 mg oral tablet is continued as torsemide 20 mg oral tablet traZODone 50 mg oral tablet 1 tab(s) orally once a day (at bedtime), As Needed 30-Dec-2021 10:34 traZODone 50 mg oral tablet 1 tab(s) orally once a day (at bedtime), As Needed 30-Dec-2021 10:34 traZODone 50 mg oral tablet is continued as traZODone 50 mg oral tablet warfarin 5 mg oral tablet 1 tab(s) orally once a day 30-Dec-2021 10:34 warfarin 5 mg oral tablet 1 tab(s) orally once a day. Resume 01/22/2022. Discontinued; Copy/Discontinue warfarin 5 mg oral tablet is continued and modifie (more content not included)... Normal [facility] Patient Profile - Preop v3on 01-21-2022 Patient Profile - Preop v3 Patient Profile - Preop: Initial Info: Patient DemographicsName: ESSENCE VINCENT Date: 1970 Address: [address] [place], [place] [address] [place] [address] Date/Time [id number] Primary Phone [phone] How to be AddressedSherry Spoken Language PreferredEnglish Source of Informationpatient Stated Reason for AdmissionTEE/EP study and ablation Primary Contact Name and NumberDougpeggy Singer (significant other) [phone] Limitations on Visitors/Phone Callsnone Medications Brought to Hospitalno General Health: Weight in kg76.6 kilogram(s) Weight in wsv750.8 pound(s) Weight Methodactual (measured) Scale Typestanding Height in feet5 feet Height in inches1.97 inch(es) Height in cm157.4 centimeter(s) Height Methodstated BMI (kg/m2)30.918 square meter Patient or Family Member Reaction to Anesthesiano previous reaction Blood Avoidance/Restrictionsnon e Previous Transfusion Reactionnot applicable Health Mgmt: Symptoms/Conditions Managed at Homebehavioral health; cardiovascular Are You no Are You Currently Breastfeedingno Behavioral Health Symptoms/Conditionsanxiet y Behavioral Management Strategiesmedication therapy Cardiovascular Symptoms/Conditionshypert ension; dysrhythmia; myocardial infarction; heart failure; cardiomyopathy; valvular disease; dyslipidemia Cardiovascular Management Strategiesroutine screening; medical coding manager; medication therapy Barriers to Managing Healthnone Relationship/Environ: Lives Withalone Living Arrangementsapartment Resource/Environmental Concernsnone [facility] Antic[facility] at Transitionnone Tobacco Use: Tobacco Useno Pre-op Checklist: Arrival [id number]-Tlq-3200 Arrival Time09:21 Procedure TypeTEE/EPS/Ablation NPOyes Last Food Dmovkk49-Jyf-1526 23:00 Last Clear Fluid Pgskkh63-Imx-0316 07:00 ID Band On Patientpatient ID (name), allergy, falls risk Consent Signedyes H&P Completepending Anesthesia Assessment Completedpending EKG Performedyes Chest X-Ray Performednot ordered Additional Information: Information Review: Allergies, Home Meds and Significant Events have been Reviewed and Verified with Patient/Familyyes Allergy, Intolerance, Adverse Event: Allergies: Chantix: Drug, Unknown, Active erythromycin: Drug, Unknown, Active fentanyl: Drug, Other, Active Levaquin: Drug, Other, Active Zofran: Drug, Other, Active Tape - Adhesive, Bandaids, Paper: Environment, Other, Active Electronic Signatures: Nannette Alvarez (ELZA) (Signed 21-Jan-2022 11:18) Authored: Initial Info, General Health, Health Mgmt, Relationship/Environ, Tobacco Use, Pre-op Checklist, Additional Information Last Updated: 21-Jan-2022 11:18 by Nannette Alvarez (ELZA) [facility] Transesophageal Echoon 01-21 Transesophageal Echo [place] [address] TRANSESOPHAGEAL ECHOCARDIOGRAM REPORT Patient Name: ESSENCE Franco Hernandez Physician: [id number] [address] [facility] Study Date: 01/21/2022 Referring [id number] SOCO BHARDWAJ Physician: MRN/PID: [id number] PCP: Accession/Order#: [id number] Department 2S CathLab Location: Date of : 1970 Fellow: Gender: F Nurse: Yolanda Farrell RN Admit Date: 01/21/2022 Freezer Person: Trina Obregon [facility] Admission Status: Outpatient Additional Staff: Height: 157.00 cm CC Report to: Weight: 76.00 kg Study Type: Transesophageal Echo BSA: 1.77 m2 Blood Pressure: 128 /63 mmHg Diagnosis/ICD: Z01.810-Encounter for preprocedural cardiovascular examination Indication: PRE-EP Procedure/CPT: JOVITA Complete-[id number]; Moderate Sedation Services initial 15 minutes patient >5 years-[id number] Study Detail: The following Echo studies were performed: 2D, Doppler and color flow. Agitated saline used as a contrast agent for intraseptal flow evaluation. The patient was sedated. PHYSICIAN INTERPRETATION: JOVITA Details: Technically adequate omniplane transesophageal echocardiogram performed. Agitated saline contrast and color flow Doppler echo was performed to assess for the presence of a patent foramen ovale. JOVITA Medication: The pharynx was anesthetized with lidocaine ointment and viscous lidocaine. The patient was sedated using moderate sedation. Total intraservice time for moderate sedation was 8 minutes. Fentanyl and Midazolam was used to sedate the patient for this exam. JOVITA Procedure: The probe was passed without difficulty. The patient tolerated the procedure well without any apparent complications. Left Ventricle: The left ventricular systolic function is severely decreased, with an estimated ejection fraction of 20-25%. There is global hypokinesis of the left ventricle with minor regional variations. The left ventricular cavity size is normal. Left ventricular diastolic filling was indeterminate. Left Atrium: The left atrium is moderately dilated. There is a moderately sized patent foramen ovale with bidirectional shunting across atrial septum. The patent foramen ovale was visualized using color doppler and agitated saline contrast. A bubble study using agitated saline was performed. A moderate PFO (11-20 bubbles) was demonstrated. Right Ventricle: The right ventricle is mildly enlarged. There is normal right ventricular global systolic function. A device is visualized in the right ventricle. Right Atrium: The right atrium is moderately dilated. Aortic Valve: The aortic valve is trileaflet. There is no evidence of aortic valve regurgitation. Mitral Valve: The mitral valve is mild to moderately thickened. There is evidence of mild mitral valve stenosis. The doppler estimated mean and peak diastolic pressure gradients are 4.0 mmHg and 14.3 mmHg respectively. There is mild mitral valve regurgitation. S/p mitral valve repair. Tricuspid Valve: The tricuspid valve was not well visualized. There is severe tricuspid regurgitation. Pulmonic Valve: The pulmonic valve is not well visualized. There is trace to mild pulmonic valve regurgitation. Pericardium: There is no pericardial effusion noted. Aorta: The aortic root was not well visualized. There is plaque visualized in the descending aorta which is classified as a Grade 2 [mild (focal or diffuse) intimal thickening of 2-3 mm] atherosclerosis. CONCLUSIONS: 1. The left ventricular systolic function is severely decreased with a 20-25% estimated ejection fraction. 2. The left atrium is moderately dilated. 3. The right atrium is moderately dilated. 4. S/p mitral valve repair. 5. There is evidence of mild mitral valve stenosis. 6. There is severe tricuspid regurgitation. 7. Moderately sized patent foramen ovale. 8. A bubble study using agitated saline was performed. A moderate PFO (11-20 bubbles) was demonstrated. 9. There is global hypokinesis of the left ventricle with minor regional variations. 10. There is plaque visualized in the descending aorta. QUANTITATIVE DATA SUMMARY: MITRAL VALVE: Normal Ranges: MV Vmax: 1.89 m/s (<1.3m/s) MV peak P.3 mmHg (<5mmHg) MV mean P.0 mmHg (<48mmHg) TRICUSPID VALVE/RVSP: Normal Ranges: Peak TR Velocity: 3.06 m/s RV Syst Pressure: 40.5 mmHg (< 30mmHg) [id number] Soco Bhardwaj MD Electronically signed on 01/21/2022 at 2:53:25 PM Final Normal [facility] Transesophageal Echo MP[facility]N [facility] [place] [id number] Work Phone: ICD REMOTE CHECKon 2 AV Delay Adaptive Paced Minimum (ms) 350 ms [facility] AV Delay Adaptive Rate Maximum (bpm) 90 {beats}/min [facility] AV Delay Adaptive Rate Minimum (bpm) 75 {beats}/min [facility] AV Delay Adaptive Sensed Minimum (ms) 250 ms [facility] AV Delay Adaptive Status ENABLED [facility] AV Delay Paced (ms) 100 ms [facility] AV Delay Sensed (ms) 70 ms [facility] Battery Voltage 2.9 V [facility] Scott LV Pacing Polarity BI [facility] Scott RA Pacing Amplitude (volts) 2 V [facility] Scott RA Pacing Polarity BI [facility] Scott RA Pacing Pulse Width (ms) 0.4 ms [facility] Scott RA Sensing Amplitude (mvolts) 0.3 mV [facility] Scott RA Sensing Blanking Period (ms) 150 ms [facility] Scott RA Sensing Polarity BI [facility] Scott RA Sensing Refractory Period (ms) 250 ms [facility] Scott RV Pacing Amplitude (volts) 3 V [facility] Scott RV Pacing Polarity BI [facility] Scott RV Pacing Pulse Width (ms) 0.4 ms [facility] Scott RV Sensing Amplitude (mvolts) 0.3 mV [facility] Scott RV Sensing Blanking Period (ms) 200 ms [facility] Scott RV Sensing Polarity BI [facility] Detection Configuration (Vent) 2 - Zone [facility] FastVT_Detection Interval 450 ms [facility] FastVT_Therapy Configuration 2 ATP(s) + 0 Shock(s) [facility] ICD ATAF DetectionInterval ms 450 ms [facility] ICD ATAF DetectionStatus ENABLED [facility] ICD ATAF TherapyConfiguration 2 ATP(s) + 0 Shock(s) [facility] ICD FastVT DetectionStatus ENABLED [facility] ICD-ADLRATE_BPM 85 {beats}/min [facility] ICD-AMS EPISODES 133 {beats}/min [facility] ICD-ATP Episodes (Vent) 0 [facility] ICD-ATRIALFIBRILLATION 2063 [facility] ICD-ATRIALTACHYCARDIA 2063 [facility] ICD-ATRIALTACHYCARDIA [facility] ICD-Counters Cleared Date 09/23/2016 [facility] ICD-Device Sri CLAYT [facility] ICD-LEADIMPEDANCEATRIA L 304 ohm [facility] ICD-Percent Pacing (Atrial) 24.69 % [facility] ICD-Percent Pacing (Vent) 20.79 % [facility] ICD-PMT Intervention ENABLED [facility] ICD-PVC Intervention ENABLED [facility] ICD-Rate Modulation Acceleration Reaction 30 s [facility] ICD-Rate Modulation Deceleration Exercise [facility] ICD-Rate Modulation Rogers 3 [facility] ICD-Rate Modulation Threshold MediumHigh [facility] ICD-Shocks Aborted (Vent) 0 [facility] EPA-TCEFTY-KIMPXGKID 0 [facility] ICD-SHOCKSABORTED 0 [facility] ICD-SHOCKSDELIVEREDVEN TRICULAR 0 [facility] ICD-Ventricular Fibrillation 0 [facility] Implant Date 07/03/2005 [facility] Implant Date 11/30/2002 [facility] Lead Impedance (LV) 4047 ohm [facility] Lead Impedance (RV) 836 ohm [facility] Lead Impedance High Voltage 54 ohm [facility] Lead1 Mfg MDT [facility] Lead2 Mfg MDT [facility] Lead3 Mfg GDT [facility] Location LV [facility] Location RA [facility] Location RV [facility] Lower Rate (bpm) 60 {beats}/min [facility] LV PACING % 0 % [facility] Max Sensor Rate (bpm) 90 {beats}/min [facility] MDT_PROG_TACHY_ZONE_DE TECTIONS_STATUS ENABLED [facility] Model [id number] Viva XT HOOK UP DRIVER-D [facility] Model 4196 Attain Ability MRI SureScan [facility] Model 5076 CapSureFix Novus [facility] Model 0144 [employer] Endurance Rx [facility] Pacing Mode DDDR [facility] Serial Number [id number] [facility] Serial Number [id number] [facility] Serial Number [id number] [facility] Serial Number [id number] [facility] Test Charge Energy 18 J [facility] Test Charge Time 4.324 [facility] Therapy Status (Vent) Enabled [facility] Thresh RA Capture Amplitude (volts) 0.625 V [facility] Thresh RA Capture Duration (ms) 0.4 ms [facility] Thresh RA Sensing Amplitude (mvolts) 2 mV [facility] Thresh RV Capture Amplitude (VOLTS) 1.375 V [facility] Thresh RV Capture Duration (MS) 0.4 ms [facility] Thresh RV Sensing Amplitude (MVOLTS) 10.125 mV [facility] Tracking Rate (bpm) 90 {beats}/min [facility] VF Zone Detection Interval 450 ms [facility] VF Zone Therapy Configuration 2 ATP(s) + 0 Shock(s) [facility] No Panel Informationon 01-14 BLANK _ [facility] ICD-ATRIALTACHYCARDIA 0 [facility] ICD-Fast Ventricular Tachycardia 0 [facility] Implant Date 09/23/2016 [facility] Prothrombin Time INRon 12-23 INR Coag (PPP) [Relative time] 3.3 {INR} [employer] Other Prothrombin Time INR [employer] Other Prothrombin Time INRon 12-09 INR Coag (PPP) [Relative time] 1.2 {INR} [employer] Other Prothrombin Time INR [employer] Other Office Visit (Cardiology)on 12-05-2021 Follow-up visit Diagnoses/Problems Assessed Paroxysmal atrial fibrillation (427.31) (I48.0) Biventricular implantable cardioverter-defibrillato r (ICD) in situ (V45.02) (Z95.810) H/O mitral valve replacement with mechanical valve (V43.3) (Z95.2) H/O ventricular tachycardia (V12.59) (Z86.79) High risk medication use (V58.69) (Z79.899) Ischemic cardiomyopathy (414.8) (I25.5) BMI 25.0-25.9,adult (V85.21) (Z68.25) Encounter to discuss test results (V65.49) (Z71.2) Encounter for medication counseling (V65.49) (Z71.89) Former smoker (V15.82) (Z87.891) QUIT 02/2018 had restarted then requit 08/2021 Atrial flutter, unspecified type (427.32) (I48.92) Pre-operative cardiovascular examination (V72.81) (Z01.810) Atrial tachycardia (427.89) (I47.1) Orders Atrial flutter, unspecified type, Atrial tachycardia, Pre-operative cardiovascular examination Cardiac Catheterization Lab Procedures; Status:Active - Retrospective Authorization; Requested for:[id number]; Atrial flutter, unspecified type, Pre-operative cardiovascular examination Complete Blood Count + Differential; Status:Active - Retrospective Authorization; Requested for:[id number]; Complete Blood Count; Status:Active - Retrospective Authorization; Requested for:[id number]; CORONAVIRUS 2019 RNA BY PCR, SCREEN ASYMPTOMATIC AMBULATORY; Status:Hold For - Specimen/Data Collection,Retrospective Authorization; Requested for:[id number]; ? : Unknown RESIDENT IN CONGREGATE CARE SETTING? : Unknown ICU? : No HOSPITALIZED (OR PLANNED TO BE ADMITTED)? : No SYMPTOMATIC DEFINED BY CDC? : No EMPLOYED IN HEALTHCARE? : Unknown FIRST COVID NASAL SWAB TEST? : Unknown PT/INR; Status:Active - Retrospective Authorization; Requested for:[id number]; Atrial tachycardia Transesophageal Echo; Status:Hold For - Scheduling,Retrospective Authorization; Requested for:[id number]; Health Maintenance Avoid alcoholic beverages.; Status:Complete - Retrospective Authorization; Done: [id number] Avoid foods and beverages that contain caffeine.; Status:Complete - Retrospective Authorization; Done: [id number] Begin or continue regular aerobic exercise. Gradually work up to at least 3 sessions of 30 minutes of exercise a week.; Status:Complete - Retrospective Authorization; Done: [id number] Diets that are low in carbohydrates and high in protein are very popular for weight loss.; Status:Complete - Retrospective Authorization; Done: 01Oet2413 Eat a low fat and low cholesterol diet.; Status:Complete - Retrospective Authorization; Done: [id number] Losing just 5 to 10 pounds may lower your risk of health problems.; Status:Complete - Retrospective Authorization; Done: [id number] Please bring all medicines, vitamins, and herbal supplements with you when you come to the office.; Status:Complete - Retrospective Authorization; Done: [id number] Restrict the salt in your diet by avoiding highly salted foods.; Status:Complete - Retrospective Authorization; Done: [id number] SocHx: Former smoker Tobacco Use Screening; Status:Complete; Done: [id number] Patient Instructions HOLD WARFARIN 4 DAYS PRIOR TO PROCEDURE, BRIDGE WITH LOVENOX. GIVE 1 INJECTIONS TWICE A DAY 2 DAYS PRIOR, 1 INJECTION THE AM THE DAY BEFORE THE PROCEDURE.PT HAS LOVENOX AT HOME. HOLD MULTI VITAMIN X 1 WEEK. WILL SCHEDULE AN EP STUDY, AFLUTTER ABLA. By signing my name below, I, Latesha Burch CMA,Dhaval, attest that this documentation has been prepared under the direction and in the presence of Dr. Margareth Nunez MD, FACC, FACP, RS. The provider reviewed the following test(s) and result(s) with the patient: ECG Chief Complaint New patient referred by Dr. Hoskins for possible ablation. Seen at [facility] 11/04/2021 Adult Risk Screening Initial Fall Risk Screening: ESSENCE has not fallen in the last 6 months. Tobacco Screening: ESSENCE does not use tobacco. Blood Pressure monitoring Blood Pressure Controlled, Systolic <130 mm Hg Blood Pressure Controlled, Diastolic < 80mm Hg History of Present Illness She is referred by Dr. Hoskins for evaluation for ablation of atrial flutter. She has remote history of [place] , cardiogenic shock, PCI circumflex and iABP, with persistent severe LV dysfunction. She later occluded her cicumflex. Years later, she had HF and severe MR and underwent mitral valve repair at [facility]. She had recurrent VT and atrial arrhythmias, and underwent several ablations and repeat percutaneous MVR at [facility]. After her MVR and ablation in July,, she had KALLI when then improved. She has had recurrent ICD shocks for atrial flutter. She is referred for atrial flutter ablation. SHe is tired. She gets migraines at night. It may be worse with increased blood pressure recently. We discussed that she should followup with her new PCP regarding this. For now, she will start taking her metoprolol at mid day and trend her blood pressure to followup. The patient denies any lightheadedness, near syncope, syncope, palpitat (more content not included)... Normal [employer] Tobacco Screening.on 022 Fall risk assessment a) No falls within the last year [facility] DO Work Phone: Tobacco use status [facility]PH[facility] b) No -[facility] Motostrano DO Work Phone: Tobacco Screening. Yes [facility] Mot[facility] DO Work Phone: Prothrombin Time INRon 11-19 INR Coag (PPP) [Relative time] 1.59 {INR} [employer] Other Prothrombin Time INR [facility] [employer] Other Prothrombin Time INRon 11-11 INR Coag (PPP) [Relative time] 2.2 {INR} [employer] Other Prothrombin Time INR [facility] [employer] Other Prothrombin Time INRon 11-04 INR Coag (PPP) [Relative time] 1.1 {INR} [employer] Other Prothrombin Time INR [facility] [employer] Other Prothrombin Time INRon 10-29 INR Coag (PPP) [Relative time] 1.22 {INR} [employer] Other Prothrombin Time INR [facility] [employer] Other Prothrombin Time INRon 10-23 INR Coag (PPP) [Relative time] 1.29 {INR} [facility] [employer] Other Prothrombin Time INR [facility] [employer] Other Activated partial thrombopla stin time (aPTT) in platelet poor plasma by coagulation aon 10-13-2021 aPTT Coag (PPP) [Time] 31.8 s 25.1-36.5 [facility] Amphetamine Screen Ql (U)on 10-13-2021 Amphetamines Ql (U) Negative Negative [facility] Automated erythrocytes count in urine sediment (number/area)on 10-13-2021 RBC Auto (Urine sed) [#/Area] 1-2 [HPF] [facility] Automated leukocytes count i n urine sediment (number/area)on 10-13-2021 WBC Auto (Urine sed) [#/Area] 20-49 [HPF] [facility] Automated urine hyaline cast s count (number/volume)on 10-13-2021 Hyaline casts Auto (U) [#/Vol] None seen [LPF] [facility] Barbiturates [Presence] in U rineon 10-13-2021 Barbiturates Ql (U) Negative Negative [facility] Basophils Auto (Bld) [#/Vol] on 10-13-2021 Basophils (Bld) [#/Vol] 0.1 10*3/uL 0.0-0.[address] [facility] Basophils/100 WBC Auto (Bld) on 10-13-2021 Basophils/100 WBC (Bld) 0.9 % [facility] Benzodiazepines [Presence] i n Urineon 10-13-2021 Benzodiazepines Ql (U) Negative Negative [facility] Bilirubin Test strip Ql (U)o n 10-13-2021 Bilirubin Ql (U) Negative Negative [facility] Blood anisocytosis detection on 10-13-2021 Anisocytosis Ql (Bld) Marked [facility] [place] Blood hemoglobin measurement (mass/volume)on 10-13-2021 Hemoglobin (Bld) [Mass/Vol] 11.7 g/dL 11.8-15.[address] [facility] Blood leukocytes automated c ount (number/volume)on 10-13-2021 WBC (Bld) [#/Vol] 11.4 10*3/uL 4.5-11.0 [facility] Blood polychromasia detectio n by light microscopyon 10-13-2021 Polychromasia LM Ql (Bld) Slight [facility] Body fluid albumin measureme nt (mass/volume)on 10-13-2021 Albumin (Body fld) [Mass/Vol] 3.0 g/dL 3.2-5.[address] [facility] COVID-19 SOFIAon 10-13-2021 SARS-CoV+SARS-CoV-2 (COVID-19) Ag IA.rapid Ql (Resp) Negative Negative [facility] Comment on above: This is a duplicate Maranda SARS Antigen (CAIT) result to be used for statistical tracking purpose only. Cannabinoids [Presence] in U rine by Screen methodon 10-13-2021 Cannabinoids Screen Ql (U) Positive Negative [facility] Comment on above: These are unconfirme d results and should not be used for legal purposes. Drug Cut-Off Concentration: AMPH 1000 ng/mL ALESSANDRO 200 ng/mL RHINA 200 ng/mL COCM 300 ng/mL OP 300 ng/mL PCP 25 ng/mL THC 20 ng/mL Casts typing in urine sedime nt by light microscopyon 10-13-2021 Casts LM Nom (Urine sed) None seen [LPF] None Seen [facility] Color Auto (U)on 10-13-2021 Color (U) Yellow Yellow [facility] Creatine kinase [Enzymatic a ctivity/volume] in Serum or Plasmaon 10-13-2021 CK [Catalytic activity/Vol] 61 U/L 22-[address] [facility] Creatinine and Glomerular fi ltration rate.predicted panel (S/P/Bld)on 10-13-2021 Creatinine [Mass/Vol] 3.62 mg/dL 0.44-1.03 [facility] Digoxin [Mass/volume] in Ser um or Plasmaon 10-13-2021 Digoxin [Mass/Vol] 8.7 ng/mL 0.9-2.0 [facility] Comment on above: Critical valueresult calledat 1837 on 02/14/22Last dose: - Eosinophils Auto (Bld) [#/Vo l]on 10-13-2021 Eosinophils (Bld) [#/Vol] 0.0 10*3/uL 0.0-0.[address] [facility] Eosinophils/100 WBC Auto (Bl d)on 10-13-2021 Eosinophils/100 WBC (Bld) 0.0 % [facility] Erythrocyte distribution wid th Auto (RBC) [Ratio]on 10-13-2021 Erythrocyte distribution width (RBC) [Ratio] 23.1 % 11.9-15.[address] [facility] Estimated glomerular filtrat ion rate (GFR) non- Americanon 10-13-2021 GFR/1.73 sq M.predicted among non-blacks MDRD (S/P/Bld) [Vol rate/Area] 13 mL/Min [facility] Globulin Calc (S) [Mass/Vol] on 10-13-2021 Globulin (S) [Mass/Vol] 3.2 g/dL [facility] Haptoglobin [Mass/volume] in Serum or Plasmaon 10-13-2021 Haptoglobin [Mass/Vol] 175 mg/dL 37-246 [facility] Hematocrit Auto (Bld) [Volum e fraction]on 10-13-2021 Hematocrit (Bld) [Volume fraction] 38.3 % 34.0-46.[address] [facility] Hypochromia detectionon 09-30 Hypochromia Ql (Bld) Slight [facility] Ketones Auto test strip (U) [Mass/Vol]on 10-13-2021 Ketones (U) [Mass/Vol] Negative Negative [facility] Laboratory - Chemistry and C hemistry - challengeon 10-13-2021 Natriuretic peptide B (Bld) [Mass/Vol] 279.0 pg/mL 5-[address] [facility] Laboratory - Coagulationon 0 10-13-2021 PT Coag (PPP) [Time] 23.0 s 9.0-12.9 [facility] Laboratory - Drug toxicology on 10-13-2021 Opiates Ql (U) Negative Negative [facility] Laboratory - Hematology and Cell countson 10-13-2021 Nucleated RBC/100 WBC (Bld) [Ratio] 0.1 % 0-0.[address] [facility] Lactate dehydrogenase measur ement (enzymatic activity/volume)on 10-13-2021 LDH (Unsp spec) [Catalytic activity/Vol] 310 U/L 45-[address] [facility] Lymphocytes Auto (Bld) [#/Vo l]on 10-13-2021 Lymphocytes (Bld) [#/Vol] 1.1 10*3/uL 1.00-4.[address] [facility] Lymphocytes/100 WBC Auto (Bl d)on 10-13-2021 Lymphocytes/100 WBC (Bld) 9.5 % [facility] MCH Auto (RBC) [Entitic mass ]on 10-13-2021 MCH (RBC) [Entitic mass] 20.4 pg 24.7-34.[address] [facility] MCHC Auto (RBC) [Mass/Vol]on 10-13-2021 MCHC (RBC) [Mass/Vol] 30.5 g/dL 32.0-35.0 [facility] MCV Auto (RBC) [Entitic vol] on 10-13-2021 MCV (RBC) [Entitic vol] 67.0 fL 80-[address] [facility] Monocytes Auto (Bld) [#/Vol] on 10-13-2021 Monocytes (Bld) [#/Vol] 0.9 10*3/uL 0.0-0.[address] [facility] Monocytes/100 WBC Auto (Bld) on 10-13-2021 Monocytes/100 WBC (Bld) 7.8 % [facility] Neutrophils Auto (Bld) [#/Vo l]on 10-13-2021 Neutrophils (Bld) [#/Vol] 9.3 10*3/uL 1.8-7.[address] [facility] Neutrophils/100 WBC Auto (Bl d)on 10-13-2021 Neutrophils/100 WBC (Bld) 81.8 % [facility] Nitrite Test strip Ql (U)on 10-13-2021 Nitrite Ql (U) Negative Negative [facility] No Panel Informationon 10-13 Estimated GFR () 16 mL/Min [facility] Comment on above: GFR estimated refere nce range: According to KDOQI guidelines, <60 ml/min/1.73m2 is sufficient to diagnose a patient with chronic kidney disease. Microcytosis Moderate [facility] Pharmacy Creatinine Clearance (Chem 16.[address] [facility] Platelet Estimate Decreased Normal [facility] Platelet Morphology Comment Normal Normal [facility] Schistocytes Slight [facility] Ovalocyte detectionon 2021 Ovalocytes LM Ql (Bld) Slight Fi [facility] Phencyclidine Screen Ql (U)o n 10-13-2021 Phencyclidine Ql (U) Negative Negative [facility] Platelet mean volume Auto (B ld) [Entitic vol]on 10-13-2021 Platelet mean volume (Bld) [Entitic vol] 9.0 fL 6.3-10.[address] [facility] Platelet poor plasma interna tional normalized ratio (INR) by coagulation assay (relaton 10-13-2021 INR Coag (PPP) [Relative time] 2.0 {INR} [facility] Comment on above: INR Therapeutic Rang e A) Pre- and Peroperative OAT started two weeks before surgery. NOT HIP SURGERY: 1.5 - 2.5 HIP SURGERY: 2 - 3B) Primary and secondary prevention of venous THROMBOSIS: 2 - 3C) Active venous thrombosis, pulmonary embolismand prevention of recurrent venous thrombosis: 2 - 3D) Prevention of arterial thromboembolismincluding patients with mechanical heart valves: 3 - 4.5 Platelets Auto (Bld) [#/Vol] on 10-13-2021 Platelets (Bld) [#/Vol] 29 10*3/uL 150-[address] [facility] Comment on above: Results calledat 151 0 on 10/13/21 Protein Auto test strip (U) [Mass/Vol]on 10-13-2021 Protein (U) [Mass/Vol] Negative Negative [facility] Protein [Mass/volume] in Ser um or Plasmaon 10-13-2021 Protein [Mass/Vol] 6.2 g/dL 6.1-7.9 [facility] RBC Auto (Bld) [#/Vol]on RBC (Bld) [#/Vol] 5.72 10*6/uL 3.60-5.00 [facility] RBC morphologyon 10-13-2021 RBC morphology finding Nom (Bld) N/A [facility] Serum or plasma alanine hernandez otransferase measurement without P-5'-P (enzymatic activion 10-13-2021 ALT No additional P-5'-P [Catalytic activity/Vol] 12 U/L 10-[address] [facility] Serum or plasma albumin/glob ulin mass ratioon 10-13-2021 Albumin/Globulin [Mass ratio] 0.9 {ratio} [facility] Serum or plasma alkaline rosanna sphatase measurement (enzymatic activity/volume)on 10-13-2021 ALP [Catalytic activity/Vol] 147 U/L 32-[address] [facility] Serum or plasma aspartate am inotransferase measurement (enzymatic activity/volume)on 10-13-2021 AST [Catalytic activity/Vol] 26 U/L 10-[address] [facility] Serum or plasma calcium jackie urement (mass/volume)on 10-13-2021 Calcium [Mass/Vol] 8.2 mg/dL 8.2-10.2 [facility] Serum or plasma chloride jose antonio surement (moles/volume)on 10-13-2021 Chloride [Moles/Vol] 91 mmol/L 95-114 [facility] Serum or plasma creatine kin ase MB (CKMB)/total creatine kinase (CK) ratio by calculaon 10-13-2021 CK.MB Calc [Catalytic fraction] 17.3 % 0.00-2.[address] [facility] Serum or plasma creatine kin ase MB measurement (mass/volume)on 10-13-2021 CK.MB [Mass/Vol] 10.6 ng/mL 0.6-6.3 [facility] Serum or plasma glucose jackie urement (mass/volume)on 10-13-2021 Glucose [Mass/Vol] 98 mg/dL 70-100 [facility] Comment on above: ADA recommended refe rence rangeRandom Glucose Reference Range is dependent on time and content of last meal. Glucose of more than 200 mg/dL in a nonstressed, ambulatory subject supports the diagnosis of Diabetes Mellitus. Serum or plasma potassium me asurement (moles/volume)on 10-13-2021 Potassium [Moles/Vol] 3.3 mmol/L 3.5-5.1 [facility] Serum or plasma sodium measu rement (moles/volume)on 10-13-2021 Sodium [Moles/Vol] 130 mmol/L 136-146 [facility] Serum or plasma total biliru bin measurement (mass/volume)on 10-13-2021 Bilirubin [Mass/Vol] 0.6 mg/dL 0.3-1.2 [facility] Serum or plasma total carbon dioxide measurement (moles/volume)on 10-13-2021 CO2 [Moles/Vol] 23.0 mmol/L 22.0-30.0 [facility] Serum or plasma urea nitroge n measurement (mass/volume)on 10-13-2021 Urea nitrogen [Mass/Vol] 51 mg/dL 9-[address] [facility] Specific gravity Auto test s trip (U) [Rel density]on 10-13-2021 Specific gravity (U) [Rel density] 1.007 1.001-1.[address] [facility] Squamous epithelial cells de tection in urine sediment by light microscopyon 10-13-2021 Epithelial cells.squamous LM Ql (Urine sed) 10-19 [HPF] [facility] Teardrop cell detectionon Dacrocytes LM Ql (Bld) Slight Fi [facility] Trichomonas vaginalis detect ion in urine sediment by light microscopyon 10-13-2021 T. vaginalis LM Ql (Urine sed) 3-4 [HPF] None Seen [facility] Troponin I.cardiac [Mass/vol ume] in Serum or Plasma by High sensitivity methodon 10-13-2021 Troponin I.cardiac High sensitivity method [Mass/Vol] 139 pg/mL 0-[address] [facility] Comment on above: Critical valueresult calledat 1909 on 10/13/21 Urine bacteria detection by automated methodon 10-13-2021 Bacteria Auto Ql (U) None seen None Seen [facility] Urine clarity by refractomet ry automatedon 10-13-2021 Clarity Refractometry automated (U) Cloudy Clear [facility] Urine cocaine detectionon Cocaine Ql (U) Negative Negative [facility] Urine glucose measurement by automated test strip (mass/volume)on 10-13-2021 Glucose Auto test strip (U) [Mass/Vol] Normal mg/dL Normal [facility] Urine hemoglobin detection b y automated test stripon 10-13-2021 Hemoglobin Auto test strip Ql (U) Trace Negative [facility] Urine lactic acid measuremen ton 10-13-2021 Lactate (U) [Moles/Vol] 1.5 mmol/L [facility] Urine leukocyte esterase det ection by automated test stripon 10-13-2021 Leukocyte esterase Auto test strip Ql (U) 3+ Negative [facility] Urobilinogen Auto test strip (U) [Mass/Vol]on 10-13-2021 Urobilinogen (U) [Mass/Vol] Normal mg/dL Normal [facility] pH Auto test strip (U)on pH (U) 5.5 [pH] 5.0-9.[address] [facility] Prothrombin Time INRon 09-04 Prothrombin Time INR 1.0 [facility] [employer] Other Prothrombin Time INRon 07-17 INR Coag (PPP) [Relative time] 2.0 {INR} [employer] Other Prothrombin Time INR [facility] [employer] Other Prothrombin Time INRon 06-30 INR Coag (PPP) [Relative time] 4.4 {INR} [employer] Other Prothrombin Time INR [facility] [employer] Other Prothrombin Time INRon 06-09 INR Coag (PPP) [Relative time] 4.9 {INR} [employer] Other Prothrombin Time INR [facility] [employer] Other Laboratory - Coagulationon 0 12-23-2020 PT Coag (PPP) [Time] 314.1 s 9.0-12.9 [facility] Comment on above: Results calledat 111 7 on 12/23/20 Platelet poor plasma interna tional normalized ratio (INR) by coagulation assay (relaton 12-23-2020 INR Coag (PPP) [Relative time] 27.1 {INR} [facility] Comment on above: Results calledat 111 7 on 12/23/20 INR Therapeutic Range A) Pre- and Peroperative OAT started two weeks before surgery. NOT HIP SURGERY: 1.5 - 2.5 HIP SURGERY: 2 - 3B) Primary and secondary prevention of venous THROMBOSIS: 2 - 3C) Active venous thrombosis, pulmonary embolismand prevention of recurrent venous thrombosis: 2 - 3D) Prevention of arterial thromboembolismincluding patients with mechanical heart valves: 3 - 4.5 Basophils Auto (Bld) [#/Vol] on 11-25-2020 Basophils (Bld) [#/Vol] 0.1 10*3/uL 0.0-0.[address] [facility] Basophils/100 WBC Auto (Bld) on 11-25-2020 Basophils/100 WBC (Bld) 1.7 % [facility] Blood anisocytosis detection on 11-25-2020 Anisocytosis Ql (Bld) Marked [facility] Blood hemoglobin measurement (mass/volume)on 11-25-2020 Hemoglobin (Bld) [Mass/Vol] 8.3 g/dL 11.8-15.[address] [facility] Blood leukocytes automated c ount (number/volume)on 11-25-2020 WBC (Bld) [#/Vol] 8.5 10*3/uL 4.5-11.0 [facility] Blood polychromasia detectio n by light microscopyon 11-25-2020 Polychromasia LM Ql (Bld) Moderate [facility] Creatinine and Glomerular fi ltration rate.predicted panel (S/P/Bld)on 11-25-2020 Creatinine [Mass/Vol] 0.79 mg/dL 0.44-1.03 [facility] Eosinophils Auto (Bld) [#/Vo l]on 11-25-2020 Eosinophils (Bld) [#/Vol] 0.3 10*3/uL 0.0-0.[address] [facility] Eosinophils/100 WBC Auto (Bl d)on 11-25-2020 Eosinophils/100 WBC (Bld) 3.3 % [facility] Erythrocyte distribution wid th Auto (RBC) [Ratio]on 11-25-2020 Erythrocyte distribution width (RBC) [Ratio] 21.0 % 11.9-15.[address] [facility] GFR/1.73 sq M.predicted emily g non-blacks MDRD (S/P/Bld) [Vol rate/Area]on 11-25-2020 GFR/1.73 sq M predicted among non-blacks MDRD (S/P/Bld) [Vol rate/Area] > 60 mL/Min [facility] HCG ( test) IA.rapi d Ql (U)on 11-25-2020 HCG ( test) Ql (U) Negative [facility] Hematocrit Auto (Bld) [Volum e fraction]on 11-25-2020 Hematocrit (Bld) [Volume fraction] 26.3 % 34.0-46.[address] [facility] Hematologyon 11-25-2020 PT Coag (PPP) [Time] 13.6 s 9.0-12.9 [facility] Platelets (Bld) [#/Vol] Normal Normal [facility] Hypochromia detectionon 10-29 Hypochromia Ql (Bld) Moderate [facility] Lymphocytes Auto (Bld) [#/Vo l]on 11-25-2020 Lymphocytes (Bld) [#/Vol] 1.9 10*3/uL 1.00-4.[address] [facility] Lymphocytes/100 WBC Auto (Bl d)on 11-25-2020 Lymphocytes/100 WBC (Bld) 22.6 % [facility] MCH Auto (RBC) [Entitic mass ]on 11-25-2020 MCH (RBC) [Entitic mass] 21.5 pg 24.7-34.[address] [facility] MCHC Auto (RBC) [Mass/Vol]on 11-25-2020 MCHC (RBC) [Mass/Vol] 31.5 g/dL 32.0-35.0 [facility] [place] MCV Auto (RBC) [Entitic vol] on 11-25-2020 MCV (RBC) [Entitic vol] 68.2 fL 80-[address] [facility] Monocytes Auto (Bld) [#/Vol] on 11-25-2020 Monocytes (Bld) [#/Vol] 0.8 10*3/uL 0.0-0.[address] [facility] Monocytes/100 WBC Auto (Bld) on 11-25-2020 Monocytes/100 WBC (Bld) 8.8 % [facility] Neutrophils Auto (Bld) [#/Vo l]on 11-25-2020 Neutrophils (Bld) [#/Vol] 5.4 10*3/uL 1.8-7.[address] [facility] Neutrophils/100 WBC Auto (Bl d)on 11-25-2020 Neutrophils/100 WBC (Bld) 63.6 % [facility] No Panel Informationon 11-25 Estimated GFR () > 60 mL/Min [facility] Comment on above: GFR estimated refere nce range: According to KDOQI guidelines, <60 ml/min/1.73m2 is sufficient to diagnose a patient with chronic kidney disease. Platelet Estimate Normal Normal [facility] Otheron 11-25-2020 GFR/1.73 sq M.predicted MDRD (S/P/Bld) [Vol rate/Area] > 60 mL/Min [facility] Comment on above: GFR estimated refere nce range: According to KDOQI guidelines, <60 ml/min/1.73m2 is sufficient to diagnose a patient with chronic kidney disease. Microcytosis Moderate [facility] Nucleated RBC/100 WBC (Bld) [Ratio] 0.2 % 0-0.[address] [facility] Creatinine Clearance (Chem 84.[address] [facility] Platelet Morphology Comment Normal Normal [facility] Poikilocytosis Slight [facility] Schistocytes Slight [facility] Ovalocyte detectionon 2020 Ovalocytes LM Ql (Bld) Slight Fi relaFormerly [facility] Platelet mean volume Auto (B ld) [Entitic vol]on 11-25-2020 Platelet mean volume (Bld) [Entitic vol] 8.8 fL 6.3-10.[address] [facility] Platelet poor plasma interna tional normalized ratio (INR) by coagulation assay (relaton 11-25-2020 INR Coag (PPP) [Relative time] 1.2 {INR} [facility] Comment on above: INR Therapeutic Rang e A) Pre- and Peroperative OAT started two weeks before surgery. NOT HIP SURGERY: 1.5 - 2.5 HIP SURGERY: 2 - 3B) Primary and secondary prevention of venous THROMBOSIS: 2 - 3C) Active venous thrombosis, pulmonary embolismand prevention of recurrent venous thrombosis: 2 - 3D) Prevention of arterial thromboembolismincluding patients with mechanical heart valves: 3 - 4.5 Platelets Auto (Bld) [#/Vol] on 11-25-2020 Platelets (Bld) [#/Vol] 318 10*3/uL 150-[address] [facility] RBC Auto (Bld) [#/Vol]on RBC (Bld) [#/Vol] 3.85 10*6/uL 3.60-5.00 [facility] RBC morphologyon 11-25-2020 RBC morphology finding Nom (Bld) N/A [facility] Serum or plasma calcium jackie urement (mass/volume)on 11-25-2020 Calcium [Mass/Vol] 8.6 mg/dL 8.2-10.2 [facility] Serum or plasma chloride jose antonio surement (moles/volume)on 11-25-2020 Chloride [Moles/Vol] 102 mmol/L 95-114 [facility] Serum or plasma glucose jackie urement (mass/volume)on 11-25-2020 Glucose [Mass/Vol] 87 mg/dL 70-100 [facility] Comment on above: ADA recommended refe rence rangeRandom Glucose Reference Range is dependent on time and content of last meal. Glucose of more than 200 mg/dL in a nonstressed, ambulatory subject supports the diagnosis of Diabetes Mellitus. Serum or plasma potassium me asurement (moles/volume)on 11-25-2020 Potassium [Moles/Vol] 3.9 mmol/L 3.5-5.1 [facility] Serum or plasma sodium measu rement (moles/volume)on 11-25-2020 Sodium [Moles/Vol] 135 mmol/L 136-146 [facility] Serum or plasma total carbon dioxide measurement (moles/volume)on 11-25-2020 CO2 [Moles/Vol] 22.7 mmol/L 22.0-30.0 [facility] Serum or plasma urea nitroge n measurement (mass/volume)on 11-25-2020 Urea nitrogen [Mass/Vol] 8 mg/dL [address] [facility] Target cellson 11-25-2020 Target cells LM Ql (Bld) Slight [facility] Urine human chorionic gonado tropin (hCG) detection by immunoassayon 11-25-2020 HCG ( test) Ql (U) Negative [facility] Creatine kinase [Enzymatic a ctivity/volume] in Serum or Plasmaon 11-24-2020 CK [Catalytic activity/Vol] 54 U/L 22 [facility] Otheron 11-24-2020 CBC Comment See comment [facility] Comment on above: There is significant microcytosis which suggests the possibility of iron deficiency. Consider serum ferritin and iron studies. Serum or plasma cardiac trop onin I measurement (mass/volume)on 11-24-2020 Troponin I.cardiac [Mass/Vol] ng/mL 0-0.[address] [facility] Comment on above: ELLA [place] Cut off value > or equal to 0.03 ng/mL in conjunction with clinical conditions of myocardial infarction.([email or web address]) Troponin I.cardiac [Mass/Vol] ng/mL 0-0.[address] [facility] Comment on above: ELLA [place] Cut off value > or equal to 0.03 ng/mL in conjunction with clinical conditions of myocardial infarction.([email or web address]) Serum or plasma creatine kin ase MB (CKMB)/total creatine kinase (CK) ratio by calculaon 11-24-2020 CK.MB Calc [Catalytic fraction] 3.8 % 0.00-2.[address] [facility] Serum or plasma creatine kin ase MB measurement (mass/volume)on 11-24-2020 CK.MB [Mass/Vol] 2.1 ng/mL 0.6-6.3 [facility] Teardrop cell detectionon Dacrocytes LM Ql (Bld) Rare [facility] Activated partial thrombopla stin time (aPTT) in platelet poor plasma by coagulation aon 11-23-2020 aPTT Coag (PPP) [Time] 92.8 s 25.1-36.5 [facility] Comment on above: Critical valueresult calledat 1511 on 11/23/20 Automated basophil %on 11-23 Basophils/100 WBC (Bld) 1.1 % [facility] Automated basophil counton 0 11-23-2020 Basophils (Bld) [#/Vol] 0.2 10*3/uL 0.0-0.[address] [facility] Automated blood lymphocyte c ount (number/volume)on 11-23-2020 Lymphocytes (Bld) [#/Vol] 1.5 10*3/uL 1.00-4.[address] [facility] Automated blood lymphocyte c ount as percentage of total leukocyteson 11-23-2020 Lymphocytes/100 WBC (Bld) 10.4 % [facility] Automated blood monocyte cou nton 11-23-2020 Monocytes (Bld) [#/Vol] 1.5 10*3/uL 0.0-0.[address] [facility] Automated blood platelet cou nt (count/volume)on 11-23-2020 Platelets (Bld) [#/Vol] 327 10*3/uL 150-[address] [facility] Automated blood platelet jose antonio n volume measurementon 11-23-2020 Platelet mean volume (Bld) [Entitic vol] 8.1 fL 6.3-10.[address] [facility] Automated eosinophil %on Eosinophils/100 WBC (Bld) 1.5 % [facility] Automated eosinophil counton 11-23-2020 Eosinophils (Bld) [#/Vol] 0.2 10*3/uL 0.0-0.[address] [facility] Automated erythrocyte distri bution width ratioon 11-23-2020 Erythrocyte distribution width (RBC) [Ratio] 21.1 % 11.9-15.[address] [facility] Automated erythrocyte mean c orpuscular hemoglobin (mass per erythrocyte)on 11-23-2020 MCH (RBC) [Entitic mass] 21.2 pg 24.7-34.[address] [facility] Automated erythrocyte mean c orpuscular hemoglobin concentration measurement (mass/volon 11-23-2020 MCHC (RBC) [Mass/Vol] 31.0 g/dL 32.0-35.0 [facility] Automated erythrocyte mean c orpuscular volumeon 11-23-2020 MCV (RBC) [Entitic vol] 68.4 fL 80-[address] [facility] Automated erythrocytes count in urine sediment (number/area)on 11-23-2020 RBC Auto (Urine sed) [#/Area] 20-49 [HPF] [facility] Automated leukocytes count i n urine sediment (number/area)on 11-23-2020 WBC Auto (Urine sed) [#/Area] 50-100 [HPF] [facility] Automated monocyte %on 11-23 Monocytes/100 WBC (Bld) 9.8 % [facility] Automated neutrophil %on Neutrophils/100 WBC (Bld) 77.2 % [facility] Bilirubin Test strip Ql (U)o n 11-23-2020 Bilirubin Ql (U) Negative Negative [facility] Blood anisocytosis detection on 11-23-2020 Anisocytosis Ql (Bld) Moderate [facility] Blood erythrocytes automated count (number/volume)on 11-23-2020 RBC (Bld) [#/Vol] 3.91 10*6/uL 3.60-5.00 [facility] Blood hemoglobin measurement (mass/volume)on 11-23-2020 Hemoglobin (Bld) [Mass/Vol] 8.3 g/dL 11.8-15.[address] [facility] Blood leukocytes automated c ount (number/volume)on 11-23-2020 WBC (Bld) [#/Vol] 14.9 10*3/uL 4.5-11.0 [facility] Blood neutrophil count by au tomated method (number/volume)on 11-23-2020 Neutrophils (Bld) [#/Vol] 11.5 10*3/uL 1.8-7.[address] [facility] Blood polychromasia detectio n by light microscopyon 11-23-2020 Polychromasia LM Ql (Bld) Slight [facility] COVID-19 Positive/Negativeon 11-23-2020 COVID-19 Positive/Negative Negative Negative [facility] Comment on above: Reference: NegativeT esting for SARS-CoV-2 by RT-PCRThis test was developed and its performance characteristics determined by [employer] ([employer] and validated at the [facility]. This test has not been FDA cleared or approved. This test has been authorized by FDA under an Emergency Use Authorization (EUA). This test has been validated in accordance with the FDA's Guidance Document (Policy for Diagnostics Testing in Laboratories Certified to Perform High Complexity Testing under CLIA prior to Emergency Use Authorization for Coronavirus Disease-2019 during the Public Health Emergency) issued on November 30, 2019. This test is only authorized for the duration of time the declaration that circumstances exist justifying the authorization of the emergency use of in vitro diagnostic tests for detection of SARS-CoV-2 virus and/or diagnosis of COVID-19 infection under section 564(b)(1) of the Act, 21 U.S.C. 360bbb-3(b)(1), unless the authorization is terminated or revoked sooner. SARS-CoV-2 (COVID-19) N gene ADITI+probe Ql (Resp) Negative Negative [facility] Comment on above: Reference: NegativeT esting for SARS-CoV-2 by RT-PCRThis test was developed and its performance characteristics determined by [employer] and validated at the [facility]. This test has not been FDA cleared or approved. This test has been authorized by FDA under an Emergency Use Authorization (EUA). This test has been validated in accordance with the FDA's Guidance Document (Policy for Diagnostics Testing in Laboratories Certified to Perform High Complexity Testing under CLIA prior to Emergency Use Authorization for Coronavirus Disease-2019 during the Public Health Emergency) issued on November 30, 2019. This test is only authorized for the duration of time the declaration that circumstances exist justifying the authorization of the emergency use of in vitro diagnostic tests for detection of SARS-CoV-2 virus and/or diagnosis of COVID-19 infection under section 564(b)(1) of the Act, 21 U.S.C. 360bbb-3(b)(1), unless the authorization is terminated or revoked sooner. COVID-19 SOFIAon 11-23-2020 COVID-19 MARANDA Negative Negative [facility] Comment on above: This is a duplicate Maranda SARS Antigen (CAIT) result to be used for statistical tracking purpose only. SARS-CoV+SARS-CoV-2 (COVID-19) Ag IA.rapid Ql (Resp) Negative Negative [facility] Comment on above: This is a duplicate Maranda SARS Antigen (CAIT) result to be used for statistical tracking purpose only. CT biopsyon 11-23-2020 Transferrin [Mass/Vol] 321 mg/dL 180-[address] Fi relands [facility]acon 11-23-2020 Natriuretic peptide B (Bld) [Mass/Vol] 859.0 pg/mL 5-[address] [facility] Color Auto (U)on 11-23-2020 Color (U) Yellow Yellow [facility] Creatine kinase [Enzymatic a ctivity/volume] in Serum or Plasmaon 11-23-2020 CK [Catalytic activity/Vol] 66 U/L 22-[address] [facility] Estimated glomerular filtrat ion rate (GFR) non- Americanon 11-23-2020 GFR/1.73 sq M predicted among non-blacks MDRD (S/P/Bld) [Vol rate/Area] > 60 mL/Min [facility] Ferritin [Mass/volume] in Se rum or Plasmaon 11-23-2020 Ferritin [Mass/Vol] 39.9 ng/mL 11-306.8 [facility] Folate [Mass/volume] in Seru m or Plasmaon 11-23-2020 Folate [Mass/Vol] ng/mL >5.9 [facility] Comment on above: Folate reference ran ge: >5.9 ng/mlThe WHO technical consultation on folate and vitamin [id number] has determined that folate concentrations lessthan 4 ng/ml are considered deficient. Folate [Mass/Vol] ng/mL >5.9 [facility] Comment on above: Folate reference ran ge: >5.9 ng/mlThe WHO technical consultation on folate and vitamin [id number] has determined that folate concentrations lessthan 4 ng/ml are considered deficient. Hematocrit [Volume Fraction] of Blood by Automated counton 11-23-2020 Hematocrit (Bld) [Volume fraction] 26.7 % 34.0-46.[address] [facility] Hematologyon 11-23-2020 Platelets (Bld) [#/Vol] Normal Normal [facility] PT Coag (PPP) [Time] 189.6 s 9.0-12.9 [facility] Hypochromia detectionon - Hypochromia Ql (Bld) Moderate [facility] Iron [Mass/volume] in Serum or Plasmaon 11-23-2020 Iron [Mass/Vol] 19 ug/dL 40-[address] [facility] Iron binding capacity [Mass/ volume] in Serum or Plasmaon 11-23-2020 Iron binding capacity [Mass/Vol] 449 ug/dL 255-[address] [facility] Iron saturation [Mass Fracti on] in Serum or Plasmaon 11-23-2020 Iron saturation [Mass fraction] 4.0 % 20-[address] [facility] Ketones Auto test strip (U) [Mass/Vol]on 11-23-2020 Ketones (U) [Mass/Vol] Negative Negative Fi [facility]aFormerly [facility] Laboratory - Microbiology an d Antimicrobial susceptibilityon 11-23-2020 SARS-CoV-2 (COVID-19) RNA ADITI+probe Ql (Unsp spec) N/A [facility] Metabolic Panelon 11-23-2020 Magnesium [Mass/Vol] 1.8 mg/dL 1.6-2.6 [facility] Nitrite Test strip Ql (U)on 11-23-2020 Nitrite Ql (U) Positive Negative [facility] Otheron 11-23-2020 Absolute Reticulocyte Count 0.104 10*6/uL 0.024-0.[address] [facility] Cobalamin (Vitamin B12) [Mass/Vol] 275 pg/mL 180-[address] [facility] Percent Reticulocyte Count 2.6 % 0.5-1.[address] [facility] Coronavirus 2019 PCR Interp N/A [facility] SARS Antigen (LFIA) [facility] Crenated Cell Slight [facility] GFR/1.73 sq M.predicted MDRD (S/P/Bld) [Vol rate/Area] > 60 mL/Min [facility] [facility] Comment on above: GFR estimated refere nce range: According to KDOQI guidelines, <60 ml/min/1.73m2 is sufficient to diagnose a patient with chronic kidney disease. Microcytosis Moderate [facility] Nucleated RBC/100 WBC (Bld) [Ratio] 0.1 % 0-0.[address] [facility] Creatinine Clearance (Chem 74.[address] [facility] Platelet Morphology Comment Normal Normal [facility] Poikilocytosis Slight [facility] Schistocytes Rare [facility] Ovalocyte detectionon 2020 Ovalocytes LM Ql (Bld) Slight [facility] Platelet poor plasma interna tional normalized ratio (INR) by coagulation assay (relaton 11-23-2020 INR Coag (PPP) [Relative time] 16.6 {INR} [facility] Comment on above: Critical valueresult calledat 1511 on 11/23/20INR Therapeutic Range A) Pre- and Peroperative OAT started two weeks before surgery. NOT HIP SURGERY: 1.5 - 2.5 HIP SURGERY: 2 - 3B) Primary and secondary prevention of venous THROMBOSIS: 2 - 3C) Active venous thrombosis, pulmonary embolismand prevention of recurrent venous thrombosis: 2 - 3D) Prevention of arterial thromboembolismincluding patients with mechanical heart valves: 3 - 4.5 Protein Auto test strip (U) [Mass/Vol]on 11-23-2020 Protein (U) [Mass/Vol] Negative Negative [facility] RBC morphologyon 11-23-2020 RBC morphology finding Nom (Bld) N/A [facility] Serum or plasma calcium jackie urement (mass/volume)on 11-23-2020 Calcium [Mass/Vol] 8.4 mg/dL 8.2-10.2 [facility] Serum or plasma cardiac trop onin I measurement (mass/volume)on 11-23-2020 Troponin I.cardiac [Mass/Vol] ng/mL 0-0.[address] [facility] Comment on above: [place] Cut off value > or equal to 0.03 ng/mL in conjunction with clinical conditions of myocardial infarction.([email or web address]) Serum or plasma chloride jose antonio surement (moles/volume)on 11-23-2020 Chloride [Moles/Vol] 104 mmol/L 95-114 [facility] Serum or plasma creatine kin ase MB (CKMB)/total creatine kinase (CK) ratio by calculaon 11-23-2020 CK.MB Calc [Catalytic fraction] 2.8 % 0.00-2.[address] [facility] Serum or plasma creatine kin ase MB measurement (mass/volume)on 11-23-2020 CK.MB [Mass/Vol] 1.9 ng/mL 0.6-6.3 [facility] Serum or plasma creatinine m easurement with calculation of estimated glomerular filtron 11-23-2020 Creatinine [Mass/Vol] 0.83 mg/dL 0.44-1.03 [facility] Serum or plasma glucose jackie urement (mass/volume)on 11-23-2020 Glucose [Mass/Vol] 126 mg/dL 70-100 [facility] Comment on above: ADA recommended refe rence rangeRandom Glucose Reference Range is dependent on time and content of last meal. Glucose of more than 200 mg/dL in a nonstressed, ambulatory subject supports the diagnosis of Diabetes Mellitus. Serum or plasma potassium me asurement (moles/volume)on 11-23-2020 Potassium [Moles/Vol] 3.8 mmol/L 3.5-5.1 [facility] Serum or plasma sodium measu rement (moles/volume)on 11-23-2020 Sodium [Moles/Vol] 135 mmol/L 136-146 [facility] Serum or plasma total carbon dioxide measurement (moles/volume)on 11-23-2020 CO2 [Moles/Vol] 22.0 mmol/L 22.0-30.0 [facility] Serum or plasma urea nitroge n measurement (mass/volume)on 11-23-2020 Urea nitrogen [Mass/Vol] 9 mg/dL 9- [facility] Specific gravity Auto test s trip (U) [Rel density]on 11-23-2020 Specific gravity (U) [Rel density] 1.007 1.001-1.[address] [facility] Squamous epithelial cells de tection in urine sediment by light microscopyon 11-23-2020 Epithelial cells.squamous LM Ql (Urine sed) 3-4 [HPF] [facility] Target cellson 11-23-2020 Target cells LM Ql (Bld) Slight [facility] Teardrop cell detectionon Dacrocytes LM Ql (Bld) Rare [facility] Urinalysison 11-23-2020 Hyaline casts LM Ql (Urine sed) 0-8 [LPF] [facility] Urine bacteria detection by automated methodon 11-23-2020 Bacteria Auto Ql (U) 4+ None Seen [facility] Urine clarity by refractomet ry automatedon 11-23-2020 Clarity Refractometry automated (U) Clear Clear [facility] Urine culture routineon 10-29 Bacteria identified Cx Nom (U) Escherichia coli [facility] Urine glucose measurement by automated test strip (mass/volume)on 11-23-2020 Glucose Auto test strip (U) [Mass/Vol] Normal mg/dL Normal [facility] Urine hemoglobin detection b y automated test stripon 11-23-2020 Hemoglobin Auto test strip Ql (U) 3+ Negative [facility] Urine ketones measurement by automated test strip (mass/volume)on 11-23-2020 Ketones (U) [Mass/Vol] Negative Negative [facility] Urine leukocyte esterase det ection by automated test stripon 11-23-2020 Leukocyte esterase Auto test strip Ql (U) 4+ Negative [facility] Urine nitrite detection by t est stripon 11-23-2020 Nitrite Ql (U) Positive Negative [facility] Urine protein measurement by automated test strip (mass/volume)on 11-23-2020 Protein (U) [Mass/Vol] Negative Negative [facility] Urine total bilirubin detect ion by test stripon 11-23-2020 Bilirubin Ql (U) Negative Negative [facility] Urobilinogen Auto test strip (U) [Mass/Vol]on 11-23-2020 Urobilinogen (U) [Mass/Vol] Normal mg/dL Normal [facility] pH Auto test strip (U)on pH (U) 6.5 [pH] 5.0-9.[address] [facility] Activated partial thrombopla stin time (aPTT) in platelet poor plasma by coagulation aon 08-16-2020 aPTT Coag (PPP) [Time] 55.8 s 23.0-35.0 [facility] Automated basophil %on 08-16 Basophils/100 WBC (Bld) 0.9 % [facility] Automated basophil counton 1 10-17-2019 Basophils (Bld) [#/Vol] 0.1 10*3/uL 0.0-0.[address] [facility] Automated blood lymphocyte c ount (number/volume)on 08-16-2020 Lymphocytes (Bld) [#/Vol] 1.6 10*3/uL 1.00-4.[address] [facility] Automated blood lymphocyte c ount as percentage of total leukocyteson 08-16-2020 Lymphocytes/100 WBC (Bld) 17.3 % [facility] Automated blood monocyte cou nton 08-16-2020 Monocytes (Bld) [#/Vol] 0.7 10*3/uL 0.0-0.[address] [facility] Automated blood platelet cou nt (count/volume)on 08-16-2020 Platelets (Bld) [#/Vol] 305 10*3/uL 150-[address] [facility] Automated blood platelet jose antonio n volume measurementon 08-16-2020 Platelet mean volume (Bld) [Entitic vol] 9.1 fL 6.3-10.[address] [facility] Automated eosinophil %on Eosinophils/100 WBC (Bld) 1.6 % [facility] Automated eosinophil counton 08-16-2020 Eosinophils (Bld) [#/Vol] 0.1 10*3/uL 0.0-0.[address] [facility] Automated erythrocyte distri bution width ratioon 08-16-2020 Erythrocyte distribution width (RBC) [Ratio] 18.8 % 11.9-15.[address] [facility] Automated erythrocyte mean c orpuscular hemoglobin (mass per erythrocyte)on 08-16-2020 MCH (RBC) [Entitic mass] 23.9 pg 24.7-34.[address] [facility] Automated erythrocyte mean c orpuscular hemoglobin concentration measurement (mass/volon 08-16-2020 MCHC (RBC) [Mass/Vol] 31.1 g/dL 32.0-35.0 [facility] Automated erythrocyte mean c orpuscular volumeon 08-16-2020 MCV (RBC) [Entitic vol] 76.9 fL 80-[address] [facility] Automated erythrocytes count in urine sediment (number/area)on 08-16-2020 RBC Auto (Urine sed) [#/Area] 10-19 [HPF] [facility] Automated leukocytes count i n urine sediment (number/area)on 08-16-2020 WBC Auto (Urine sed) [#/Area] Innumerable [HPF] [facility] Automated monocyte %on 08-16 Monocytes/100 WBC (Bld) 7.6 % [facility] Automated neutrophil %on Neutrophils/100 WBC (Bld) 72.6 % [facility] Automated urine color determ inationon 08-16-2020 Color (U) Yellow Yellow [facility] Automated urine hyaline cast s count (number/volume)on 08-16-2020 Hyaline casts Auto (U) [#/Vol] None seen [LPF] [facility] Blood erythrocytes automated count (number/volume)on 08-16-2020 RBC (Bld) [#/Vol] 4.45 10*6/uL 3.60-5.00 [facility] Blood hemoglobin measurement (mass/volume)on 08-16-2020 Hemoglobin (Bld) [Mass/Vol] 10.7 g/dL 11.8-15.[address] [facility] Blood leukocytes automated c ount (number/volume)on 08-16-2020 WBC (Bld) [#/Vol] 9.1 10*3/uL 3.8-11.6 [facility] Blood neutrophil count by au tomated method (number/volume)on 08-16-2020 Neutrophils (Bld) [#/Vol] 6.6 10*3/uL 1.8-7.[address] [facility] COVID-19 Detected/Not Detect edon 08-16-2020 COVID-19 Detected/Not Detected Not detected Not Detecte [facility] Comment on above: This is a duplicate test result based off of the RP2.1 COVID (EUA) test performed within the Microbiology department. [facility] 08-16-2020 Natriuretic peptide B (Bld) [Mass/Vol] 1123.0 pg/mL 5-[address] [facility] Casts typing in urine sedime nt by light microscopyon 08-16-2020 Casts LM Nom (Urine sed) None seen [LPF] None Seen [facility] Creatine kinase [Enzymatic a ctivity/volume] in Serum or Plasmaon 08-16-2020 CK [Catalytic activity/Vol] 72 U/L 22-[address] [facility] Estimated glomerular filtrat ion rate (GFR) non- Americanon 08-16-2020 GFR/1.73 sq M predicted among non-blacks MDRD (S/P/Bld) [Vol rate/Area] 56 mL/min/{1.73_m2} [facility] Hematocrit [Volume Fraction] of Blood by Automated counton 08-16-2020 Hematocrit (Bld) [Volume fraction] 34.2 % 34.0-46.[address] [facility] Hematologyon 08-16-2020 PT Coag (PPP) [Time] 144.3 s 9.0-12.9 [facility] PT Coag (PPP) [Time] 132.6 s 9.0-12.9 [facility] Lactate dehydrogenase measur ement (enzymatic activity/volume)on 08-16-2020 LDH (Unsp spec) [Catalytic activity/Vol] 268 U/L 45-[address] [facility] Metabolic Panelon 08-16-2020 Magnesium [Mass/Vol] 1.8 mg/dL 1.6-2.6 [facility] Otheron 08-16-2020 Respiratory Panel (PCR) [facility] D-Dimer Quantitative (PE/DVT) < 200 ng/mL 0-[address] [facility] Comment on above: The reference range for D-dimer is <243 ng/mL D-dimer units.D-dimer results must be used in conjunction with a clinicalpretest probability (PTP) assessment model for deep veinthrombosis (DVT) and pulmonary embolism (PE). Results <230ng/mL d-dimer units can be used as a negative predictor inpatients with low or moderate probability for DVT/PE.Results above the exclusion threshold of 230 ng/ml D-dimerunits for DVT/PE may indicate the need for furtherdiagnostic testing.D-Dimer can be increased in hospitalized patients due toco-morbid conditions. GFR/1.73 sq M.predicted MDRD (S/P/Bld) [Vol rate/Area] mL/min/{1.73_m2} [facility] Comment on above: GFR estimated refere nce range: According to KDOQI guidelines, <60 ml/min/1.73m2 is sufficient to diagnose a patient with chronic kidney disease. Nucleated RBC/100 WBC (Bld) [Ratio] 0.1 % 0-0.[address] [facility] Creatinine Clearance (Chem 61.[address] [facility] Platelet poor plasma interna tional normalized ratio (INR) by coagulation assay (relaton 08-16-2020 INR Coag (PPP) [Relative time] 12.6 {INR} [facility] Comment on above: Results calledat 000 7 on 08/17/20 INR Therapeutic Range A) Pre- and Peroperative OAT started two weeks before surgery. NOT HIP SURGERY: 1.5 - 2.5 HIP SURGERY: 2 - 3B) Primary and secondary prevention of venous THROMBOSIS: 2 - 3C) Active venous thrombosis, pulmonary embolismand prevention of recurrent venous thrombosis: 2 - 3D) Prevention of arterial thromboembolismincluding patients with mechanical heart valves: 3 - 4.5 INR Coag (PPP) [Relative time] 11.6 {INR} [facility] Comment on above: Critical valueresult calledat 1717 on 08/16/20INR Therapeutic Range A) Pre- and Peroperative OAT started two weeks before surgery. NOT HIP SURGERY: 1.5 - 2.5 HIP SURGERY: 2 - 3B) Primary and secondary prevention of venous THROMBOSIS: 2 - 3C) Active venous thrombosis, pulmonary embolismand prevention of recurrent venous thrombosis: 2 - 3D) Prevention of arterial thromboembolismincluding patients with mechanical heart valves: 3 - 4.5 Serum or plasma calcium jackie urement (mass/volume)on 08-16-2020 Calcium [Mass/Vol] 8.4 mg/dL 8.2-10.2 [facility] Serum or plasma cardiac trop onin I measurement (mass/volume)on 08-16-2020 Troponin I.cardiac [Mass/Vol] ng/mL 0-0.[address] [facility] Comment on above: [place] Cut off value > or equal to 0.03 ng/mL in conjunction with clinical conditions of myocardial infarction.([email or web address]) Serum or plasma chloride jose antonio surement (moles/volume)on 08-16-2020 Chloride [Moles/Vol] 103 mmol/L 95-114 [facility] Serum or plasma creatine kin ase MB (CKMB)/total creatine kinase (CK) ratio by calculaon 08-16-2020 CK.MB Calc [Catalytic fraction] 3.7 0.00-2.[address] [facility] Serum or plasma creatine kin ase MB measurement (mass/volume)on 08-16-2020 CK.MB [Mass/Vol] 2.7 ng/mL 0.6-6.3 [facility] Serum or plasma creatinine m easurement with calculation of estimated glomerular filtron 08-16-2020 Creatinine [Mass/Vol] 1.03 mg/dL 0.44-1.03 [facility] Serum or plasma glucose jackie urement (mass/volume)on 08-16-2020 Glucose [Mass/Vol] 120 mg/dL 70-100 [facility] Comment on above: ADA recommended refe rence rangeRandom Glucose Reference Range is dependent on time and content of last meal. Glucose of more than 200 mg/dL in a nonstressed, ambulatory subject supports the diagnosis of Diabetes Mellitus. Serum or plasma potassium me asurement (moles/volume)on 08-16-2020 Potassium [Moles/Vol] 4.3 mmol/L 3.5-5.1 [facility] Serum or plasma sodium measu rement (moles/volume)on 08-16-2020 Sodium [Moles/Vol] 140 mmol/L 136-146 [facility] Serum or plasma total carbon dioxide measurement (moles/volume)on 08-16-2020 CO2 [Moles/Vol] 25.2 mmol/L 22.0-30.0 [facility] Serum or plasma urea nitroge n measurement (mass/volume)on 08-16-2020 Urea nitrogen [Mass/Vol] 9 mg/dL 9-[address] [facility] Specific gravity of Urine by Automated test stripon 08-16-2020 Specific gravity (U) [Rel density] 1.014 1.001-1.[address] [facility] Squamous epithelial cells de tection in urine sediment by light microscopyon 08-16-2020 Epithelial cells.squamous LM Ql (Urine sed) 5-9 [HPF] [facility] Trichomonas vaginalis detect ion in urine sediment by light microscopyon 08-16-2020 T. vaginalis LM Ql (Urine sed) 3-4 [HPF] None Seen [facility] Urine bacteria detection by automated methodon 08-16-2020 Bacteria Auto Ql (U) None seen None Seen [facility] Urine clarity by refractomet ry automatedon 08-16-2020 Clarity Refractometry automated (U) Cloudy Clear [facility] Urine glucose measurement by automated test strip (mass/volume)on 08-16-2020 Glucose Auto test strip (U) [Mass/Vol] Normal mg/dL Normal [facility] Urine hemoglobin detection b y automated test stripon 08-16-2020 Hemoglobin Auto test strip Ql (U) 1+ Negative [facility] Urine ketones measurement by automated test strip (mass/volume)on 08-16-2020 Ketones (U) [Mass/Vol] Negative Negative [facility] Urine leukocyte esterase det ection by automated test stripon 08-16-2020 Leukocyte esterase Auto test strip Ql (U) 4+ Negative [facility] Urine nitrite detection by t est stripon 08-16-2020 Nitrite Ql (U) Negative Negative [facility] Urine pH measurement by auto mated test stripon 08-16-2020 pH (U) 6.5 [pH] 5.0-9.[address] [facility] Urine protein measurement by automated test strip (mass/volume)on 08-16-2020 Protein (U) [Mass/Vol] Trace mg/dL Negative [facility] Urine total bilirubin detect ion by test stripon 08-16-2020 Bilirubin Ql (U) Negative Negative [facility] Urine urobilinogen measureme nt by automated test strip (mass/volume)on 08-16-2020 Urobilinogen (U) [Mass/Vol] Normal mg/dL Normal [facility] Activated partial thrombopla stin time (aPTT) in platelet poor plasma by coagulation aon 07-26-2020 aPTT Coag (PPP) [Time] 32.4 s 23.0-35.0 [facility] Automated basophil %on 07-26 Basophils/100 WBC (Bld) 1.5 % [facility] Automated basophil counton 1 09-25-2019 Basophils (Bld) [#/Vol] 0.1 10*3/uL 0.0-0.[address] [facility] Automated blood lymphocyte c ount (number/volume)on 07-26-2020 Lymphocytes (Bld) [#/Vol] 1.9 10*3/uL 1.00-4.[address] [facility] Automated blood lymphocyte c ount as percentage of total leukocyteson 07-26-2020 Lymphocytes/100 WBC (Bld) 24.7 % [facility] Automated blood monocyte cou nton 07-26-2020 Monocytes (Bld) [#/Vol] 0.8 10*3/uL 0.0-0.[address] [facility] Automated blood platelet cou nt (count/volume)on 07-26-2020 Platelets (Bld) [#/Vol] 207 10*3/uL 150-[address] [facility] Automated blood platelet jose antonio n volume measurementon 07-26-2020 Platelet mean volume (Bld) [Entitic vol] 9.5 fL 6.3-10.[address] [facility] Automated eosinophil %on Eosinophils/100 WBC (Bld) 3.4 % [facility] Automated eosinophil counton 07-26-2020 Eosinophils (Bld) [#/Vol] 0.3 10*3/uL 0.0-0.[address] [facility] Automated erythrocyte distri bution width ratioon 07-26-2020 Erythrocyte distribution width (RBC) [Ratio] 20.9 % 11.9-15.[address] [facility] Automated erythrocyte mean c orpuscular hemoglobin (mass per erythrocyte)on 07-26-2020 MCH (RBC) [Entitic mass] 24.3 pg 24.7-34.[address] [facility] Automated erythrocyte mean c orpuscular hemoglobin concentration measurement (mass/volon 07-26-2020 MCHC (RBC) [Mass/Vol] 31.3 g/dL 32.0-35.0 [facility] Automated erythrocyte mean c orpuscular volumeon 07-26-2020 MCV (RBC) [Entitic vol] 77.8 fL 80-[address] [facility] Automated monocyte %on 07-26 Monocytes/100 WBC (Bld) 10.5 % [facility] Automated neutrophil %on Neutrophils/100 WBC (Bld) 59.9 % [facility] Blood anisocytosis detection on 07-26-2020 Anisocytosis Ql (Bld) Marked [facility] Blood erythrocytes automated count (number/volume)on 07-26-2020 RBC (Bld) [#/Vol] 4.84 10*6/uL 3.60-5.00 [facility] Blood hemoglobin measurement (mass/volume)on 07-26-2020 Hemoglobin (Bld) [Mass/Vol] 11.8 g/dL 11.8-15.[address] [facility] Blood leukocytes automated c ount (number/volume)on 07-26-2020 WBC (Bld) [#/Vol] 7.8 10*3/uL 4.5-11.0 [facility] Blood neutrophil count by au tomated method (number/volume)on 07-26-2020 Neutrophils (Bld) [#/Vol] 4.7 10*3/uL 1.8-7.[address] [facility] Body fluid albumin measureme nt (mass/volume)on 07-26-2020 Albumin (Body fld) [Mass/Vol] 3.5 g/dL 3.2-5.[address] [facility] Creatine kinase [Enzymatic a ctivity/volume] in Serum or Plasmaon 07-26-2020 CK [Catalytic activity/Vol] 58 U/L 22-[address] [facility] Estimated glomerular filtrat ion rate (GFR) non- Americanon 07-26-2020 GFR/1.73 sq M predicted among non-blacks MDRD (S/P/Bld) [Vol rate/Area] mL/min/{1.73_m2} [facility] Hematocrit [Volume Fraction] of Blood by Automated counton 07-26-2020 Hematocrit (Bld) [Volume fraction] 37.7 % 34.0-46.[address] [facility] Hematologyon 07-26-2020 Platelets (Bld) [#/Vol] Normal Normal [facility] PT Coag (PPP) [Time] 16.1 s 9.0-12.9 [facility] Hypochromia detectionon 07-01 Hypochromia Ql (Bld) Slight [facility] Metabolic Panelon 07-26-2020 Magnesium [Mass/Vol] 1.7 mg/dL 1.6-2.6 [facility] Otheron 07-26-2020 GFR/1.73 sq M.predicted MDRD (S/P/Bld) [Vol rate/Area] mL/min/{1.73_m2} [facility] Comment on above: GFR estimated refere nce range: According to KDOQI guidelines, <60 ml/min/1.73m2 is sufficient to diagnose a patient with chronic kidney disease. Microcytosis Slight [facility] Nucleated RBC/100 WBC (Bld) [Ratio] 0.1 % 0-0.[address] [facility] Creatinine Clearance (Chem 66.[address] [facility] Platelet Morphology Comment Normal Normal [facility] Platelet poor plasma interna tional normalized ratio (INR) by coagulation assay (relaton 07-26-2020 INR Coag (PPP) [Relative time] 1.4 {INR} [facility] Comment on above: INR Therapeutic Rang e A) Pre- and Peroperative OAT started two weeks before surgery. NOT HIP SURGERY: 1.5 - 2.5 HIP SURGERY: 2 - 3B) Primary and secondary prevention of venous THROMBOSIS: 2 - 3C) Active venous thrombosis, pulmonary embolismand prevention of recurrent venous thrombosis: 2 - 3D) Prevention of arterial thromboembolismincluding patients with mechanical heart valves: 3 - 4.5 Protein [Mass/volume] in Ser um or Plasmaon 07-26-2020 Protein [Mass/Vol] 6.4 g/dL 6.1-7.9 [facility] RBC morphologyon 07-26-2020 RBC morphology finding Nom (Bld) N/A [facility] Serum globulin measurement b y calculation (mass/volume)on 07-26-2020 Globulin (S) [Mass/Vol] 2.9 g/dL [facility] Serum or plasma alanine hernandez otransferase measurement without P-5'-P (enzymatic activion 07-26-2020 ALT No additional P-5'-P [Catalytic activity/Vol] 21 U/L 10-[address] [facility] Serum or plasma albumin/glob ulin mass ratioon 07-26-2020 Albumin/Globulin [Mass ratio] 1.2 {ratio} [facility] Serum or plasma alkaline rosanna sphatase measurement (enzymatic activity/volume)on 07-26-2020 ALP [Catalytic activity/Vol] 153 U/L 32-92 [facility] Serum or plasma aspartate am inotransferase measurement (enzymatic activity/volume)on 07-26-2020 AST [Catalytic activity/Vol] 22 U/L 10-[address] [facility] Serum or plasma calcium jackie urement (mass/volume)on 07-26-2020 Calcium [Mass/Vol] 8.7 mg/dL 8.2-10.2 [facility] Serum or plasma cardiac trop onin I measurement (mass/volume)on 07-26-2020 Troponin I.cardiac [Mass/Vol] ng/mL 0-0.[address] [facility] Comment on above: [place] Cut off value > or equal to 0.03 ng/mL in conjunction with clinical conditions of myocardial infarction.([email or web address]) Serum or plasma chloride jose antonio surement (moles/volume)on 07-26-2020 Chloride [Moles/Vol] 106 mmol/L 95-114 [facility] Serum or plasma creatine kin ase MB (CKMB)/total creatine kinase (CK) ratio by calculaon 07-26-2020 CK.MB Calc [Catalytic fraction] 3.7 0.00-2.[address] [facility] Serum or plasma creatine kin ase MB measurement (mass/volume)on 07-26-2020 CK.MB [Mass/Vol] 2.2 ng/mL 0.6-6.3 [facility] Serum or plasma creatinine m easurement with calculation of estimated glomerular filtron 07-26-2020 Creatinine [Mass/Vol] 0.96 mg/dL 0.44-1.03 [facility] Serum or plasma glucose jackie urement (mass/volume)on 07-26-2020 Glucose [Mass/Vol] 96 mg/dL 70-100 [facility] Comment on above: ADA recommended refe rence rangeRandom Glucose Reference Range is dependent on time and content of last meal. Glucose of more than 200 mg/dL in a nonstressed, ambulatory subject supports the diagnosis of Diabetes Mellitus. Serum or plasma potassium me asurement (moles/volume)on 07-26-2020 Potassium [Moles/Vol] 4.2 mmol/L 3.5-5.1 [facility] Serum or plasma sodium measu rement (moles/volume)on 07-26-2020 Sodium [Moles/Vol] 138 mmol/L 136-146 [facility] Serum or plasma total biliru bin measurement (mass/volume)on 07-26-2020 Bilirubin [Mass/Vol] 0.3 mg/dL 0.3-1.2 [facility] Serum or plasma total carbon dioxide measurement (moles/volume)on 07-26-2020 CO2 [Moles/Vol] 22.5 mmol/L 22.0-30.0 [facility] Serum or plasma urea nitroge n measurement (mass/volume)on 07-26-2020 Urea nitrogen [Mass/Vol] 14 mg/dL 05-[address] [facility] Activated partial thrombopla stin time (aPTT) in platelet poor plasma by coagulation aon 07-22-2020 aPTT Coag (PPP) [Time] 36.7 s 23.0-35.0 [facility] Automated basophil %on 07-22 Basophils/100 WBC (Bld) 1.1 % [facility] Automated basophil counton 1 09-21-2019 Basophils (Bld) [#/Vol] 0.1 10*3/uL 0.0-0.[address] [facility] Automated blood lymphocyte c ount (number/volume)on 07-22-2020 Lymphocytes (Bld) [#/Vol] 1.8 10*3/uL 1.00-4.[address] [facility] Automated blood lymphocyte c ount as percentage of total leukocyteson 07-22-2020 Lymphocytes/100 WBC (Bld) 18.8 % [facility] Automated blood monocyte cou nton 07-22-2020 Monocytes (Bld) [#/Vol] 0.9 10*3/uL 0.0-0.[address] [facility] Automated blood platelet cou nt (count/volume)on 07-22-2020 Platelets (Bld) [#/Vol] 201 10*3/uL 150-[address] [facility] Automated blood platelet jose antonio n volume measurementon 07-22-2020 Platelet mean volume (Bld) [Entitic vol] 9.4 fL 6.3-10.[address] [facility] Automated eosinophil %on Eosinophils/100 WBC (Bld) 2.1 % [facility] Automated eosinophil counton 07-22-2020 Eosinophils (Bld) [#/Vol] 0.2 10*3/uL 0.0-0.[address] [facility] Automated erythrocyte distri bution width ratioon 07-22-2020 Erythrocyte distribution width (RBC) [Ratio] 20.7 % 11.9-15.[address] [facility] Automated erythrocyte mean c orpuscular hemoglobin (mass per erythrocyte)on 07-22-2020 MCH (RBC) [Entitic mass] 24.0 pg 24.7-34.[address] [facility] Automated erythrocyte mean c orpuscular hemoglobin concentration measurement (mass/volon 07-22-2020 MCHC (RBC) [Mass/Vol] 31.1 g/dL 32.0-35.0 [facility] Automated erythrocyte mean c orpuscular volumeon 07-22-2020 MCV (RBC) [Entitic vol] 77.1 fL 80-[address] [facility] Automated monocyte %on 07-22 Monocytes/100 WBC (Bld) 9.4 % [facility] Automated neutrophil %on Neutrophils/100 WBC (Bld) 68.6 % [facility] Blood erythrocytes automated count (number/volume)on 07-22-2020 RBC (Bld) [#/Vol] 4.68 10*6/uL 3.60-5.00 [facility] Blood hemoglobin measurement (mass/volume)on 07-22-2020 Hemoglobin (Bld) [Mass/Vol] 11.2 g/dL 11.8-15.[address] [facility] Blood leukocytes automated c ount (number/volume)on 07-22-2020 WBC (Bld) [#/Vol] 9.5 10*3/uL 4.5-11.0 [facility] Blood neutrophil count by au tomated method (number/volume)on 07-22-2020 Neutrophils (Bld) [#/Vol] 6.5 10*3/uL 1.8-7.[address] [facility] Body fluid albumin measureme nt (mass/volume)on 07-22-2020 Albumin (Body fld) [Mass/Vol] 3.5 g/dL 3.2-5.[address] [facility] COVID-19 SOFIAon 07-22-2020 COVID-19 MARANDA Negative Negative [facility] Comment on above: This is a duplicate test result based off of the Maranda SARS Antigen (CAIT) test performed within the Microbiology department. [facility] 07-22-2020 Natriuretic peptide B (Bld) [Mass/Vol] 508.0 pg/mL 5-[address] [facility] Estimated glomerular filtrat ion rate (GFR) non- Americanon 07-22-2020 GFR/1.73 sq M predicted among non-blacks MDRD (S/P/Bld) [Vol rate/Area] 58 mL/min/{1.73_m2} [facility] Hematocrit [Volume Fraction] of Blood by Automated counton 07-22-2020 Hematocrit (Bld) [Volume fraction] 36.1 % 34.0-46.[address] [facility] Hematologyon 07-22-2020 PT Coag (PPP) [Time] 33.6 s 9.0-12.9 [facility] Metabolic Panelon 07-22-2020 Magnesium [Mass/Vol] 1.9 mg/dL 1.6-2.6 [facility] Otheron 07-22-2020 SARS Antigen (LFIA) [facility] GFR/1.73 sq M.predicted MDRD (S/P/Bld) [Vol rate/Area] mL/min/{1.73_m2} [facility] Comment on above: GFR estimated refere nce range: According to KDOQI guidelines, <60 ml/min/1.73m2 is sufficient to diagnose a patient with chronic kidney disease. Nucleated RBC/100 WBC (Bld) [Ratio] 0.0 % 0-0.[address] [facility] Creatinine Clearance (Chem 64.[address] [facility] Platelet poor plasma interna tional normalized ratio (INR) by coagulation assay (relaton 07-22-2020 INR Coag (PPP) [Relative time] 3.0 {INR} [facility] Comment on above: INR Therapeutic Rang e A) Pre- and Peroperative OAT started two weeks before surgery. NOT HIP SURGERY: 1.5 - 2.5 HIP SURGERY: 2 - 3B) Primary and secondary prevention of venous THROMBOSIS: 2 - 3C) Active venous thrombosis, pulmonary embolismand prevention of recurrent venous thrombosis: 2 - 3D) Prevention of arterial thromboembolismincluding patients with mechanical heart valves: 3 - 4.5 Protein [Mass/volume] in Ser um or Plasmaon 07-22-2020 Protein [Mass/Vol] 6.3 g/dL 6.1-7.9 [facility] Serum globulin measurement b y calculation (mass/volume)on 07-22-2020 Globulin (S) [Mass/Vol] 2.8 g/dL [facility] Serum or plasma alanine hernandez otransferase measurement without P-5'-P (enzymatic activion 07-22-2020 ALT No additional P-5'-P [Catalytic activity/Vol] 32 U/L [address] [facility] Serum or plasma albumin/glob ulin mass ratioon 07-22-2020 Albumin/Globulin [Mass ratio] 1.3 {ratio} [facility] Serum or plasma alkaline rosanna sphatase measurement (enzymatic activity/volume)on 07-22-2020 ALP [Catalytic activity/Vol] 145 U/L [address] [facility] Serum or plasma aspartate am inotransferase measurement (enzymatic activity/volume)on 07-22-2020 AST [Catalytic activity/Vol] 34 U/L 10-[address] [facility] Serum or plasma calcium jackie urement (mass/volume)on 07-22-2020 Calcium [Mass/Vol] 8.6 mg/dL 8.2-10.2 [facility] Serum or plasma cardiac trop onin I measurement (mass/volume)on 07-22-2020 Troponin I.cardiac [Mass/Vol] ng/mL 0-0.[address] [facility] Comment on above: ELL[place] Cut off value > or equal to 0.03 ng/mL in conjunction with clinical conditions of myocardial infarction.([email or web address]) Serum or plasma chloride jose antonio surement (moles/volume)on 07-22-2020 Chloride [Moles/Vol] 102 mmol/L 95-114 [facility] Serum or plasma creatinine m easurement with calculation of estimated glomerular filtron 07-22-2020 Creatinine [Mass/Vol] 1.01 mg/dL 0.44-1.03 [facility] Serum or plasma glucose jackie urement (mass/volume)on 07-22-2020 Glucose [Mass/Vol] 100 mg/dL 70-100 [facility] Comment on above: ADA recommended refe rence rangeRandom Glucose Reference Range is dependent on time and content of last meal. Glucose of more than 200 mg/dL in a nonstressed, ambulatory subject supports the diagnosis of Diabetes Mellitus. Serum or plasma potassium me asurement (moles/volume)on 07-22-2020 Potassium [Moles/Vol] 4.5 mmol/L 3.5-5.1 [facility] Serum or plasma sodium measu rement (moles/volume)on 07-22-2020 Sodium [Moles/Vol] 138 mmol/L 136-146 [facility] Serum or plasma total biliru bin measurement (mass/volume)on 07-22-2020 Bilirubin [Mass/Vol] 0.3 mg/dL 0.3-1.2 [facility] Serum or plasma total carbon dioxide measurement (moles/volume)on 07-22-2020 CO2 [Moles/Vol] 24.6 mmol/L 22.0-30.0 [facility] Serum or plasma urea nitroge n measurement (mass/volume)on 07-22-2020 Urea nitrogen [Mass/Vol] 15 mg/dL 05-[address] [facility] Activated partial thrombopla stin time (aPTT) in platelet poor plasma by coagulation aon 07-19-2020 aPTT Coag (PPP) [Time] 41.0 s 23.0-35.0 [facility] Albumin [Mass/volume] in Ser um or Plasmaon 07-19-2020 Albumin [Mass/Vol] 3.9 g/dL 3.2-5.5 [facility] Automated basophil %on 07-19 Basophils/100 WBC (Bld) 1.7 % [facility] Automated basophil counton 1 09-18-2019 Basophils (Bld) [#/Vol] 0.1 10*3/uL 0.0-0.[address] [facility] Automated blood lymphocyte c ount (number/volume)on 07-19-2020 Lymphocytes (Bld) [#/Vol] 2.9 10*3/uL 1.00-4.[address] [facility] Automated blood lymphocyte c ount as percentage of total leukocyteson 07-19-2020 Lymphocytes/100 WBC (Bld) 34.7 % [facility] Automated blood monocyte cou nton 07-19-2020 Monocytes (Bld) [#/Vol] 0.9 10*3/uL 0.0-0.[address] [facility] Automated blood platelet cou nt (count/volume)on 07-19-2020 Platelets (Bld) [#/Vol] 221 10*3/uL 150-[address] [facility] Automated blood platelet jose antonio n volume measurementon 07-19-2020 Platelet mean volume (Bld) [Entitic vol] 9.4 fL 6.3-10.[address] [facility] Automated eosinophil %on Eosinophils/100 WBC (Bld) 3.2 % [facility] Automated eosinophil counton 07-19-2020 Eosinophils (Bld) [#/Vol] 0.3 10*3/uL 0.0-0.[address] [facility] Automated erythrocyte distri bution width ratioon 07-19-2020 Erythrocyte distribution width (RBC) [Ratio] 21.2 % 11.9-15.[address] [facility] Automated erythrocyte mean c orpuscular hemoglobin (mass per erythrocyte)on 07-19-2020 MCH (RBC) [Entitic mass] 24.1 pg 24.7-34.[address] [facility] Automated erythrocyte mean c orpuscular hemoglobin concentration measurement (mass/volon 07-19-2020 MCHC (RBC) [Mass/Vol] 31.0 g/dL 32.0-35.0 [facility] Automated erythrocyte mean c orpuscular volumeon 07-19-2020 MCV (RBC) [Entitic vol] 77.7 fL 80-[address] [facility] Automated erythrocytes count in urine sediment (number/area)on 07-19-2020 RBC Auto (Urine sed) [#/Area] 10-19 [HPF] [facility] Automated leukocytes count i n urine sediment (number/area)on 07-19-2020 WBC Auto (Urine sed) [#/Area] Innumerable [HPF] [facility] Automated monocyte %on 07-19 Monocytes/100 WBC (Bld) 11.0 % [facility] Automated neutrophil %on Neutrophils/100 WBC (Bld) 49.4 % [facility] Automated urine color determ inationon 07-19-2020 Color (U) Yellow Yellow [facility] Blood anisocytosis detection on 07-19-2020 Anisocytosis Ql (Bld) Marked [facility] [place] Blood erythrocytes automated count (number/volume)on 07-19-2020 RBC (Bld) [#/Vol] 5.04 10*6/uL 3.60-5.00 [facility] Blood hemoglobin measurement (mass/volume)on 07-19-2020 Hemoglobin (Bld) [Mass/Vol] 12.1 g/dL 11.8-15.[address] [facility] Blood leukocytes automated c ount (number/volume)on 07-19-2020 WBC (Bld) [#/Vol] 8.4 10*3/uL 4.5-11.0 [facility] Blood neutrophil count by au tomated method (number/volume)on 07-19-2020 Neutrophils (Bld) [#/Vol] 4.2 10*3/uL 1.8-7.[address] [facility] 07-19-2020 Natriuretic peptide B (Bld) [Mass/Vol] 357.0 pg/mL 5-[address] [facility] Creatine kinase [Enzymatic a ctivity/volume] in Serum or Plasmaon 07-19-2020 CK [Catalytic activity/Vol] 81 U/L 22-[address] [facility] Estimated glomerular filtrat ion rate (GFR) non- Americanon 07-19-2020 GFR/1.73 sq M predicted among non-blacks MDRD (S/P/Bld) [Vol rate/Area] mL/min/{1.73_m2} [facility] Hematocrit [Volume Fraction] of Blood by Automated counton 07-19-2020 Hematocrit (Bld) [Volume fraction] 39.2 % 34.0-46.[address] [facility] Hematologyon 07-19-2020 Platelets (Bld) [#/Vol] Normal Normal [facility] PT Coag (PPP) [Time] 51.9 s 9.0-12.9 [facility] Metabolic Panelon 07-19-2020 Magnesium [Mass/Vol] 2.1 mg/dL 1.6-2.6 [facility] Otheron 07-19-2020 Acanthocytes Slight [facility] GFR/1.73 sq M.predicted MDRD (S/P/Bld) [Vol rate/Area] mL/min/{1.73_m2} [facility] Comment on above: GFR estimated refere nce range: According to KDOQI guidelines, <60 ml/min/1.73m2 is sufficient to diagnose a patient with chronic kidney disease. Nucleated RBC/100 WBC (Bld) [Ratio] 0.1 % 0-0.[address] [facility] Creatinine Clearance (Chem 67.[address] [facility] Platelet Morphology Comment Normal Normal [facility] Poikilocytosis Slight [facility] Schistocytes Slight [facility] Ovalocyte detectionon 2019 Ovalocytes LM Ql (Bld) Moderate Fi relaFormerly [facility] Platelet poor plasma interna tional normalized ratio (INR) by coagulation assay (relaton 07-19-2020 INR Coag (PPP) [Relative time] 4.6 {INR} [facility] Comment on above: INR Therapeutic Rang e A) Pre- and Peroperative OAT started two weeks before surgery. NOT HIP SURGERY: 1.5 - 2.5 HIP SURGERY: 2 - 3B) Primary and secondary prevention of venous THROMBOSIS: 2 - 3C) Active venous thrombosis, pulmonary embolismand prevention of recurrent venous thrombosis: 2 - 3D) Prevention of arterial thromboembolismincluding patients with mechanical heart valves: 3 - 4.5 Protein [Mass/volume] in Ser um or Plasmaon 07-19-2020 Protein [Mass/Vol] 7.1 g/dL 6.1-7.9 [facility] RBC morphologyon 07-19-2020 RBC morphology finding Nom (Bld) N/A [facility] Serum globulin measurement b y calculation (mass/volume)on 07-19-2020 Globulin (S) [Mass/Vol] 3.2 g/dL [facility] Serum or plasma alanine hernandez otransferase measurement without P-5'-P (enzymatic activion 07-19-2020 ALT No additional P-5'-P [Catalytic activity/Vol] 32 U/L [address] [facility] Serum or plasma albumin/glob ulin mass ratioon 07-19-2020 Albumin/Globulin [Mass ratio] 1.2 {ratio} [facility] Serum or plasma alkaline rosanna sphatase measurement (enzymatic activity/volume)on 07-19-2020 ALP [Catalytic activity/Vol] 152 U/L 32-[address] [facility] Serum or plasma aspartate am inotransferase measurement (enzymatic activity/volume)on 07-19-2020 AST [Catalytic activity/Vol] 42 U/L [address] [facility] Serum or plasma calcium jackie urement (mass/volume)on 07-19-2020 Calcium [Mass/Vol] 9.0 mg/dL 8.2-10.2 [facility] Serum or plasma cardiac trop onin I measurement (mass/volume)on 07-19-2020 Troponin I.cardiac [Mass/Vol] ng/mL 0-0.[address] [facility] Comment on above: [place] Cut off value > or equal to 0.03 ng/mL in conjunction with clinical conditions of myocardial infarction.([email or web address]) Serum or plasma chloride jose antonio surement (moles/volume)on 07-19-2020 Chloride [Moles/Vol] 104 mmol/L 95-114 [facility] Serum or plasma creatine kin ase MB (CKMB)/total creatine kinase (CK) ratio by calculaon 07-19-2020 CK.MB Calc [Catalytic fraction] 3.3 0.00-2.[address] [facility] Serum or plasma creatine kin ase MB measurement (mass/volume)on 07-19-2020 CK.MB [Mass/Vol] 2.7 ng/mL 0.6-6.3 [facility] Serum or plasma creatinine m easurement with calculation of estimated glomerular filtron 07-19-2020 Creatinine [Mass/Vol] 0.94 mg/dL 0.44-1.03 [facility] Serum or plasma glucose jackie urement (mass/volume)on 07-19-2020 Glucose [Mass/Vol] 98 mg/dL 70-100 [facility] Comment on above: ADA recommended refe rence rangeRandom Glucose Reference Range is dependent on time and content of last meal. Glucose of more than 200 mg/dL in a nonstressed, ambulatory subject supports the diagnosis of Diabetes Mellitus. Serum or plasma potassium me asurement (moles/volume)on 07-19-2020 Potassium [Moles/Vol] 4.7 mmol/L 3.5-5.1 [facility] Serum or plasma sodium measu rement (moles/volume)on 07-19-2020 Sodium [Moles/Vol] 139 mmol/L 136-146 [facility] Serum or plasma total biliru bin measurement (mass/volume)on 07-19-2020 Bilirubin [Mass/Vol] 0.5 mg/dL 0.3-1.2 [facility] Serum or plasma total carbon dioxide measurement (moles/volume)on 07-19-2020 CO2 [Moles/Vol] 21.9 mmol/L 22.0-30.0 [facility] Serum or plasma urea nitroge n measurement (mass/volume)on 07-19-2020 Urea nitrogen [Mass/Vol] 17 mg/dL 05-[address] [facility] Specific gravity of Urine by Automated test stripon 07-19-2020 Specific gravity (U) [Rel density] 1.015 1.001-1.[address] [facility] Squamous epithelial cells de tection in urine sediment by light microscopyon 07-19-2020 Epithelial cells.squamous LM Ql (Urine sed) 0-1 [HPF] [facility] Urinalysison 07-19-2020 Hyaline casts LM Ql (Urine sed) 0-8 [LPF] [facility] Urine bacteria detection by automated methodon 07-19-2020 Bacteria Auto Ql (U) None seen None Seen [facility] Urine clarity by refractomet ry automatedon 07-19-2020 Clarity Refractometry automated (U) Clear Clear [facility] Urine culture routineon 07-01 Bacteria identified Cx Nom (U) [address] [facility] Urine glucose measurement by automated test strip (mass/volume)on 07-19-2020 Glucose Auto test strip (U) [Mass/Vol] Normal mg/dL Normal [facility] Urine hemoglobin detection b y automated test stripon 07-19-2020 Hemoglobin Auto test strip Ql (U) 1+ Negative [facility] Urine ketones measurement by automated test strip (mass/volume)on 07-19-2020 Ketones (U) [Mass/Vol] Negative Negative Fi relaFormerly [facility] Urine leukocyte esterase det ection by automated test stripon 07-19-2020 Leukocyte esterase Auto test strip Ql (U) 4+ Negative [facility] Urine nitrite detection by t est stripon 07-19-2020 Nitrite Ql (U) Negative Negative [facility] Urine pH measurement by auto mated test stripon 07-19-2020 pH (U) 6.0 [pH] 5.0-9.[address] [facility] Urine protein measurement by automated test strip (mass/volume)on 07-19-2020 Protein (U) [Mass/Vol] Negative Negative [facility] Urine total bilirubin detect ion by test stripon 07-19-2020 Bilirubin Ql (U) Negative Negative [facility] Urine urobilinogen measureme nt by automated test strip (mass/volume)on 07-19-2020 Urobilinogen (U) [Mass/Vol] Normal mg/dL Normal [facility] Activated partial thrombopla stin time (aPTT) in platelet poor plasma by coagulation aon 06-15-2020 aPTT Coag (PPP) [Time] 30.9 s 23.0-35.0 [facility] Automated basophil %on 06-15 Basophils/100 WBC (Bld) 1.0 % [facility] Automated basophil counton 1 Basophils (Bld) [#/Vol] 0.1 10*3/uL 0.0-0.[address] [facility] Automated blood lymphocyte c ount (number/volume)on 06-15-2020 Lymphocytes (Bld) [#/Vol] 1.1 10*3/uL 1.00-4.[address] [facility] Automated blood lymphocyte c ount as percentage of total leukocyteson 06-15-2020 Lymphocytes/100 WBC (Bld) 8.1 % [facility] Automated blood monocyte cou nton 06-15-2020 Monocytes (Bld) [#/Vol] 1.7 10*3/uL 0.0-0.[address] [facility] Automated blood platelet cou nt (count/volume)on 06-15-2020 Platelets (Bld) [#/Vol] 170 10*3/uL 150-[address] [facility] Automated blood platelet jose antonio n volume measurementon 06-15-2020 Platelet mean volume (Bld) [Entitic vol] 9.5 fL 6.3-10.[address] [facility] Automated eosinophil %on Eosinophils/100 WBC (Bld) 0.1 % [facility] Automated eosinophil counton 06-15-2020 Eosinophils (Bld) [#/Vol] 0.0 10*3/uL 0.0-0.[address] [facility] Automated erythrocyte distri bution width ratioon 06-15-2020 Erythrocyte distribution width (RBC) [Ratio] 26.0 % 11.9-15.[address] [facility] Automated erythrocyte mean c orpuscular hemoglobin (mass per erythrocyte)on 06-15-2020 MCH (RBC) [Entitic mass] 23.8 pg 24.7-34.[address] [facility] Automated erythrocyte mean c orpuscular hemoglobin concentration measurement (mass/volon 06-15-2020 MCHC (RBC) [Mass/Vol] 30.8 g/dL 32.0-35.0 [facility] Automated erythrocyte mean c orpuscular volumeon 06-15-2020 MCV (RBC) [Entitic vol] 77.4 fL 80-[address] [facility] Automated monocyte %on 06-15 Monocytes/100 WBC (Bld) 12.7 % [facility] Automated neutrophil %on Neutrophils/100 WBC (Bld) 78.1 % [facility] Blood anisocytosis detection on 06-15-2020 Anisocytosis Ql (Bld) Moderate [facility] Blood erythrocytes automated count (number/volume)on 06-15-2020 RBC (Bld) [#/Vol] 4.75 10*6/uL 3.60-5.00 [facility] Blood hemoglobin measurement (mass/volume)on 06-15-2020 Hemoglobin (Bld) [Mass/Vol] 11.3 g/dL 11.8-15.[address] [facility] Blood leukocytes automated c ount (number/volume)on 06-15-2020 WBC (Bld) [#/Vol] 13.3 10*3/uL 4.5-11.0 [facility] Blood neutrophil count by au tomated method (number/volume)on 06-15-2020 Neutrophils (Bld) [#/Vol] 10.4 10*3/uL 1.8-7.[address] [facility] Body fluid albumin measureme nt (mass/volume)on 06-15-2020 Albumin (Body fld) [Mass/Vol] 3.0 g/dL 3.2-5.[address] [facility] COVID-19 Detected/Not Detect edon 06-15-2020 COVID-19 Detected/Not Detected Not detected Not Detecte [facility] Comment on above: This is a duplicate test result based off of the RP2.1 COVID (EUA) test performed within the Microbiology department. [facility] 06-15-2020 Natriuretic peptide B (Bld) [Mass/Vol] 2832.0 pg/mL 5-[address] [facility] Creatine kinase [Enzymatic a ctivity/volume] in Serum or Plasmaon 06-15-2020 CK [Catalytic activity/Vol] 125 U/L 22-[address] [facility] Estimated glomerular filtrat ion rate (GFR) non- [place]on 06-15-2020 GFR/1.73 sq M predicted among non-blacks MDRD (S/P/Bld) [Vol rate/Area] 53 mL/min/{1.73_m2} [facility] Hematocrit [Volume Fraction] of Blood by Automated counton 06-15-2020 Hematocrit (Bld) [Volume fraction] 36.8 % 34.0-46.[address] [facility] Hematologyon 06-15-2020 Platelets (Bld) [#/Vol] Normal Normal [facility] PT Coag (PPP) [Time] 51.7 s 9.0-12.9 [facility] Otheron 06-15-2020 Respiratory Panel (PCR) [facility] Crenated Cell Slight [facility] GFR/1.73 sq M.predicted MDRD (S/P/Bld) [Vol rate/Area] mL/min/{1.73_m2} [facility] Comment on above: GFR estimated refere nce range: According to KDOQI guidelines, <60 ml/min/1.73m2 is sufficient to diagnose a patient with chronic kidney disease. Microcytosis Moderate [facility] Nucleated RBC/100 WBC (Bld) [Ratio] 0.0 % 0-0.[address] [facility] Pharmacy Creatinine Clearance (Chem 60.[address] [facility] Platelet Morphology Comment Normal Normal [facility] Poikilocytosis Slight [facility] Schistocytes Slight [facility] Ovalocyte detectionon 2019 Ovalocytes LM Ql (Bld) Slight Fi relaFormerly [facility] Platelet poor plasma interna tional normalized ratio (INR) by coagulation assay (relaton 06-15-2020 INR Coag (PPP) [Relative time] 4.6 {INR} [facility] Comment on above: INR Therapeutic Rang e A) Pre- and Peroperative OAT started two weeks before surgery. NOT HIP SURGERY: 1.5 - 2.5 HIP SURGERY: 2 - 3B) Primary and secondary prevention of venous THROMBOSIS: 2 - 3C) Active venous thrombosis, pulmonary embolismand prevention of recurrent venous thrombosis: 2 - 3D) Prevention of arterial thromboembolismincluding patients with mechanical heart valves: 3 - 4.5 Protein [Mass/volume] in Ser um or Plasmaon 06-15-2020 Protein [Mass/Vol] 5.9 g/dL 6.1-7.9 [facility] RBC morphologyon 06-15-2020 RBC morphology finding Nom (Bld) N/A [facility] Serum globulin measurement b y calculation (mass/volume)on 06-15-2020 Globulin (S) [Mass/Vol] 2.9 g/dL [facility] Serum or plasma alanine hernandez otransferase measurement without P-5'-P (enzymatic activion 06-15-2020 ALT No additional P-5'-P [Catalytic activity/Vol] 14 U/L [facility] Serum or plasma albumin/glob ulin mass ratioon 06-15-2020 Albumin/Globulin [Mass ratio] 1.0 {ratio} [facility] Serum or plasma alkaline rosanna sphatase measurement (enzymatic activity/volume)on 06-15-2020 ALP [Catalytic activity/Vol] 150 U/L 32-[address] [facility] Serum or plasma aspartate am inotransferase measurement (enzymatic activity/volume)on 06-15-2020 AST [Catalytic activity/Vol] 28 U/L [address] [facility] Serum or plasma calcium jackie urement (mass/volume)on 06-15-2020 Calcium [Mass/Vol] 8.6 mg/dL 8.2-10.2 [facility] Serum or plasma cardiac trop onin I measurement (mass/volume)on 06-15-2020 Troponin I.cardiac [Mass/Vol] 0.03 ng/mL 0-0.[address] [facility] Comment on above: ELLA [place] Cut off value > or equal to 0.03 ng/mL in conjunction with clinical conditions of myocardial infarction.([email or web address]) Serum or plasma chloride jose antonio surement (moles/volume)on 06-15-2020 Chloride [Moles/Vol] 109 mmol/L 95-114 [facility] Serum or plasma creatine kin ase MB (CKMB)/total creatine kinase (CK) ratio by calculaon 06-15-2020 CK.MB Calc [Catalytic fraction] 1.5 0.00-2.[address] [facility] Serum or plasma creatine kin ase MB measurement (mass/volume)on 06-15-2020 CK.MB [Mass/Vol] 1.9 ng/mL 0.6-6.3 [facility] Serum or plasma creatinine m easurement with calculation of estimated glomerular filtron 06-15-2020 Creatinine [Mass/Vol] 1.09 mg/dL 0.44-1.03 [facility] Serum or plasma glucose jackie urement (mass/volume)on 06-15-2020 Glucose [Mass/Vol] 139 mg/dL 70-100 [facility] Comment on above: ADA recommended refe rence rangeRandom Glucose Reference Range is dependent on time and content of last meal. Glucose of more than 200 mg/dL in a nonstressed, ambulatory subject supports the diagnosis of Diabetes Mellitus. Serum or plasma potassium me asurement (moles/volume)on 06-15-2020 Potassium [Moles/Vol] 4.6 mmol/L 3.5-5.1 [facility] Serum or plasma sodium measu rement (moles/volume)on 06-15-2020 Sodium [Moles/Vol] 142 mmol/L 136-146 [facility] Serum or plasma total biliru bin measurement (mass/volume)on 06-15-2020 Bilirubin [Mass/Vol] 0.7 mg/dL 0.3-1.2 [facility] Serum or plasma total carbon dioxide measurement (moles/volume)on 06-15-2020 CO2 [Moles/Vol] 23.7 mmol/L 22.0-30.0 [facility] Serum or plasma urea nitroge n measurement (mass/volume)on 06-15-2020 Urea nitrogen [Mass/Vol] 6 mg/dL 9-[address] [facility] Estimated glomerular filtrat ion rate (GFR) non- Americanon 06-07-2020 GFR/1.73 sq M predicted among non-blacks MDRD (S/P/Bld) [Vol rate/Area] mL/min/{1.73_m2} [facility] Otheron 06-07-2020 GFR/1.73 sq M.predicted MDRD (S/P/Bld) [Vol rate/Area] mL/min/{1.73_m2} [facility] Comment on above: GFR estimated refere nce range: According to KDOQI guidelines, <60 ml/min/1.73m2 is sufficient to diagnose a patient with chronic kidney disease. Pharmacy Creatinine Clearance (Chem 75.[address] [facility] Serum or plasma calcium jackie urement (mass/volume)on 06-07-2020 Calcium [Mass/Vol] 8.2 mg/dL 8.2-10.2 [facility] Serum or plasma chloride jose antonio surement (moles/volume)on 06-07-2020 Chloride [Moles/Vol] 110 mmol/L 95-114 [facility] Serum or plasma creatinine m easurement with calculation of estimated glomerular filtron 06-07-2020 Creatinine [Mass/Vol] 0.90 mg/dL 0.44-1.03 [facility] Serum or plasma glucose jackie urement (mass/volume)on 06-07-2020 Glucose [Mass/Vol] 83 mg/dL 70-100 [facility] Comment on above: ADA recommended refe rence rangeRandom Glucose Reference Range is dependent on time and content of last meal. Glucose of more than 200 mg/dL in a nonstressed, ambulatory subject supports the diagnosis of Diabetes Mellitus. Serum or plasma potassium me asurement (moles/volume)on 06-07-2020 Potassium [Moles/Vol] 4.4 mmol/L 3.5-5.1 [facility] Serum or plasma sodium measu rement (moles/volume)on 06-07-2020 Sodium [Moles/Vol] 138 mmol/L 136-146 [facility] Serum or plasma total carbon dioxide measurement (moles/volume)on 06-07-2020 CO2 [Moles/Vol] 19.1 mmol/L 22.0-30.0 [facility] Serum or plasma urea nitroge n measurement (mass/volume)on 06-07-2020 Urea nitrogen [Mass/Vol] 5 mg/dL 9-[address] [facility] Automated basophil %on 06-06 Basophils/100 WBC (Bld) 0.9 % [facility] Automated basophil counton 1 Basophils (Bld) [#/Vol] 0.1 10*3/uL 0.0-0.[address] [facility] Automated blood lymphocyte c ount (number/volume)on 06-06-2020 Lymphocytes (Bld) [#/Vol] 1.8 10*3/uL 1.00-4.[address] [facility] Automated blood lymphocyte c ount as percentage of total leukocyteson 06-06-2020 Lymphocytes/100 WBC (Bld) 25.4 % [facility] Automated blood monocyte cou nton 06-06-2020 Monocytes (Bld) [#/Vol] 0.8 10*3/uL 0.0-0.[address] [facility] Automated blood platelet cou nt (count/volume)on 06-06-2020 Platelets (Bld) [#/Vol] 130 10*3/uL 150-[address] [facility] Automated blood platelet jose antonio n volume measurementon 06-06-2020 Platelet mean volume (Bld) [Entitic vol] 9.7 fL 6.3-10.[address] [facility] Automated eosinophil %on Eosinophils/100 WBC (Bld) 4.1 % [facility] Automated eosinophil counton 06-06-2020 Eosinophils (Bld) [#/Vol] 0.3 10*3/uL 0.0-0.[address] [facility] Automated erythrocyte distri bution width ratioon 06-06-2020 Erythrocyte distribution width (RBC) [Ratio] 28.2 % 11.9-15.[address] [facility] Automated erythrocyte mean c orpuscular hemoglobin (mass per erythrocyte)on 06-06-2020 MCH (RBC) [Entitic mass] 24.3 pg 24.7-34.[address] [facility] Automated erythrocyte mean c orpuscular hemoglobin concentration measurement (mass/volon 06-06-2020 MCHC (RBC) [Mass/Vol] 29.8 g/dL 32.0-35.0 [facility] Automated erythrocyte mean c orpuscular volumeon 06-06-2020 MCV (RBC) [Entitic vol] 81.5 fL 80-[address] [facility] Automated monocyte %on 06-06 Monocytes/100 WBC (Bld) 10.6 % [facility] Automated neutrophil %on Neutrophils/100 WBC (Bld) 59.0 % [facility] Blood anisocytosis detection on 06-06-2020 Anisocytosis Ql (Bld) Marked [facility] Blood erythrocytes automated count (number/volume)on 06-06-2020 RBC (Bld) [#/Vol] 4.81 10*6/uL 3.60-5.00 [facility] Blood hemoglobin measurement (mass/volume)on 06-06-2020 Hemoglobin (Bld) [Mass/Vol] 11.7 g/dL 11.8-15.[address] [facility] Blood leukocytes automated c ount (number/volume)on 06-06-2020 WBC (Bld) [#/Vol] 7.1 10*3/uL 3.8-11.6 [facility] Blood neutrophil count by au tomated method (number/volume)on 06-06-2020 Neutrophils (Bld) [#/Vol] 4.2 10*3/uL 1.8-7.[address] [facility] Blood polychromasia detectio n by light microscopyon 06-06-2020 Polychromasia LM Ql (Bld) Slight [facility] Creatine kinase [Enzymatic a ctivity/volume] in Serum or Plasmaon 06-06-2020 CK [Catalytic activity/Vol] 141 U/L 22-[address] [facility] Ferritin [Mass/volume] in Se rum or Plasmaon 06-06-2020 Ferritin [Mass/Vol] 27.5 ng/mL 11-306.8 [facility] Hematocrit [Volume Fraction] of Blood by Automated counton 06-06-2020 Hematocrit (Bld) [Volume fraction] 39.2 % 34.0-46.[address] [facility] Hematologyon 06-06-2020 Platelets (Bld) [#/Vol] Decreased Normal [facility] Hypochromia detectionon Hypochromia Ql (Bld) Moderate [facility] Otheron 06-06-2020 Absolute Reticulocyte Count 0.131 10*6/uL 0.024-0.[address] [facility] Microcytosis Slight [facility] Nucleated RBC/100 WBC (Bld) [Ratio] 0.1 % 0-0.[address] [facility] Percent Reticulocyte Count 2.7 % 0.5-1.[address] [facility] Platelet Morphology Comment Normal Normal [facility] Poikilocytosis Slight [facility] Schistocytes Rare [facility] Ovalocyte detectionon 2019 Ovalocytes LM Ql (Bld) Slight [facility] RBC morphologyon 06-06-2020 RBC morphology finding Nom (Bld) N/A [facility] Serum or plasma cardiac trop onin I measurement (mass/volume)on 06-06-2020 Troponin I.cardiac [Mass/Vol] 0.08 ng/mL 0-0.[address] [facility] Comment on above: [place] Cut off value > or equal to 0.03 ng/mL in conjunction with clinical conditions of myocardial infarction.([email or web address]) Serum or plasma creatine kin ase MB (CKMB)/total creatine kinase (CK) ratio by calculaon 06-06-2020 CK.MB Calc [Catalytic fraction] 4.1 0.00-2.[address] [facility] Serum or plasma creatine kin ase MB measurement (mass/volume)on 06-06-2020 CK.MB [Mass/Vol] 5.8 ng/mL 0.6-6.3 [facility] Target cellson 06-06-2020 Target cells LM Ql (Bld) Slight [facility] Teardrop cell detectionon Dacrocytes LM Ql (Bld) Rare [facility] COVID-19 Positive/Negativeon 06-05-2020 COVID-19 Positive/Negative Negative Negative [facility] Comment on above: Testing for SARS-CoV -2 by RT-PCRThis test was developed and its performance characteristics determined by [employer] and validated at the [facility]. This test has not been FDA cleared or approved. This test has been authorized by FDA under an Emergency Use Authorization (EUA). This test has been validated in accordance with the FDA's Guidance Document (Policy for Diagnostics Testing in Laboratories Certified to Perform High Complexity Testing under CLIA prior to Emergency Use Authorization for Coronavirus Disease-2019 during the Public Health Emergency) issued on November 30, 2019. This test is only authorized for the duration of time the declaration that circumstances exist justifying the authorization of the emergency use of in vitro diagnostic tests for detection of SARS-CoV-2 virus and/or diagnosis of COVID-19 infection under section 564(b)(1) of the Act, 21 U.S.C. 360bbb-3(b)(1), unless the authorization is terminated or revoked sooner. Otheron 06-05-2020 Coronavirus 2019 PCR Interp N/A [facility] Urine lactic acid measuremen ton 06-05-2020 Lactate (U) [Moles/Vol] 1.1 mmol/L [facility] Activated partial thrombopla stin time (aPTT) in platelet poor plasma by coagulation aon 06-04-2020 aPTT Coag (PPP) [Time] 28.9 s 23.0-35.0 Fi relaFormerly [facility] Cardiacon 06-04-2020 Natriuretic peptide B (Bld) [Mass/Vol] 1836.0 pg/mL 5-[address] [facility] Hematologyon 06-04-2020 PT Coag (PPP) [Time] 15.7 s 9.0-12.9 [facility] Metabolic Panelon 06-04-2020 Magnesium [Mass/Vol] 1.7 mg/dL 1.6-2.6 [facility] Otheron 06-04-2020 Crenated Cell Moderate [facility] Platelet poor plasma interna tional normalized ratio (INR) by coagulation assay (relaton 06-04-2020 INR Coag (PPP) [Relative time] 1.4 {INR} [facility] Comment on above: INR Therapeutic Rang e A) Pre- and Peroperative OAT started two weeks before surgery. NOT HIP SURGERY: 1.5 - 2.5 HIP SURGERY: 2 - 3B) Primary and secondary prevention of venous THROMBOSIS: 2 - 3C) Active venous thrombosis, pulmonary embolismand prevention of recurrent venous thrombosis: 2 - 3D) Prevention of arterial thromboembolismincluding patients with mechanical heart valves: 3 - 4.5 Basic Metabolic Panelon 09-30 Anion gap molar conc 14 mmol/L Normal 10-20 [facility] Comment on above: Performed By: #### 1 [id number] #### [facility] [address] [place] [address] Calcium mass conc 8.8 mg/dL Normal 8.6-10.3 [facility] Comment on above: Performed By: #### 1 [id number] #### [facility] [address] [place] [address] Chloride molar conc 101 mmol/L Normal 98-107 [facility] Comment on above: Performed By: #### 1 [id number] #### [facility] [address] [place] [address] Creatinine mass conc 0.96 mg/dL Normal 0.50-1.05 [facility] Comment on above: Performed By: #### 1 [id number] #### [facility] [address] [place] [address] 216[address] GFR/1.73 sq M.predicted MDRD vol rate/area mL/min/{1.73_m2} Normal [facility] Comment on above: Result Comment: Inte rpretation for Chronic Kidney Disease: Stages 1&2 >60 Healthy or potential kidney damage. Mild decrease of GFR. Stage 3 30-59 Moderate decrease of GFR. Stage 4 15-29 Severe decrease of GFR. Stage 5 <15 Kidney failure or on dialysis. Performed By: #### 1 [id number] #### [facility] [address] [place] [address] Glucose mass conc 81 mg/dL Normal 70-100 [facility] Comment on above: Performed By: #### 1 [id number] #### [facility] [address] [place] [address] HCO3 molar conc (Bld) 25 mmol/L Normal 21-32 [facility] Comment on above: Performed By: #### 1 [id number] #### [facility] [address] [place] [address] Potassium molar conc 4.4 mmol/L Normal 3.5-5.1 [facility] Comment on above: Performed By: #### 1 [id number] #### [facility] [address] [place] [address] Sodium molar conc 136 mmol/L Normal 136-145 [facility] Comment on above: Performed By: #### 1 [id number] #### [facility] [address] [place] [address] Urea nitrogen mass conc 11 mg/dL Normal 6-23 [facility] Comment on above: Performed By: #### 1 [id number] #### [facility] [address] [place] [address] Urea nitrogen/Creatinine mass ratio 11 mg/mg Normal 5-25 [facility] Comment on above: Performed By: #### 1 [id number] #### [facility] [address] [place] [address] Prothrombin Timeon 9 INR Coag RelTime (PPP) 1.06 {INR} Normal 0.90-1.10 [facility] Comment on above: Performed By: #### 1 [id number] #### [facility] [address] [place] [address] Prothrombin time (PT) Coag time (PPP) 12.0 s Normal 9.7-12.7 [facility] Comment on above: Result Comment: MEGAN RUBIN NOTE NEW REFERENCE RANGE EFFECTIVE 2018 Performed By: #### 1 [id number] #### [facility] [address] [place] [address] Basic Metabolic Panelon 02-0 Anion gap molar conc 8 mmol/L Low 10-20 [facility] Comment on above: Performed By: #### 1 [id number] #### [facility] [address] [place] [address] 11354 Calcium mass conc 9.0 mg/dL Normal 8.6-10.3 [facility] Comment on above: Performed By: #### 1 [id number] #### [facility] [address] [place] [address] Chloride molar conc 100 mmol/L Normal 98-107 [facility] Comment on above: Performed By: #### 1 [id number] #### [facility] [address] [place] [address] Creatinine mass conc 1.05 mg/dL Normal 0.50-1.05 [facility] Comment on above: Performed By: #### 1 [id number] #### [facility] [address] [place] [address] GFR/1.73 sq M.predicted MDRD vol rate/area 56 mL/min/{1.73_m2} Normal [facility] Comment on above: Result Comment: Inte rpretation for Chronic Kidney Disease: Stages 1&2 >60 Healthy or potential kidney damage. Mild decrease of GFR. Stage 3 30-59 Moderate decrease of GFR. Stage 4 15-29 Severe decrease of GFR. Stage 5 <15 Kidney failure or on dialysis. Performed By: #### 1 [id number] #### [facility] [address] [place] [address] 344[address] Glucose mass conc 78 mg/dL Normal 70-100 [facility] Comment on above: Performed By: #### 1 [id number] #### [facility] [address] [place] [address]45 HCO3 molar conc (Bld) 31 mmol/L Normal 21-32 [facility] Comment on above: Performed By: #### 1 [id number] #### [facility] [address] [place] [address] Potassium molar conc 4.8 mmol/L Normal 3.5-5.1 [facility] Comment on above: Performed By: #### 1 [id number] #### [facility] [address] [place] [address] Sodium molar conc 134 mmol/L Low 136-145 [facility] Comment on above: Performed By: #### 1 [id number] #### [facility] [address] [place] [address] Urea nitrogen mass conc 16 mg/dL Normal 6-23 [facility] Comment on above: Performed By: #### 1 [id number] #### [facility] [address] [place] [address] Urea nitrogen/Creatinine mass ratio 15 mg/mg Normal 5-25 [facility] Comment on above: Performed By: #### 1 [id number] #### [facility] [address] [place] [address] Prothrombin Timeon 9 INR Coag RelTime (PPP) 1.87 {INR} High 0.90-1.10 [facility] Healthcare Comment on above: Performed By: #### 1 [id number] #### [facility] [address] [place] [address] Prothrombin time (PT) Coag time (PPP) 21.4 s High 9.7-12.7 [facility] Comment on above: Result Comment: MEGAN RUBIN NOTE NEW REFERENCE RANGE EFFECTIVE 2018 Performed By: #### 1 [id number] #### [facility] [address] [place] [address] Activated Clotting Time Low Rangeon 08-04-2018 Activated Clotting Time Low Range 192 sec Normal [facility] Comment on above: Result Comment: Norm al: 96-167 Secs(Unheparinized) Stent Implant Range: >300 Secs Sheath Removal: 150-170 Secs CRRT: 180-220 Secs (Continous Renal Replacement Therapy) Performed By: #### 1 [id number] #### [facility] [address] [place] [address] Activated Clotting Time Low Range 180 sec Normal [facility] Comment on above: Result Comment: Norm al: 96-167 Secs(Unheparinized) Stent Implant Range: >300 Secs Sheath Removal: 150-170 Secs CRRT: 180-220 Secs (Continous Renal Replacement Therapy) Performed By: #### 1 [id number] #### [facility] [address] [place] [address] Activated Clotting Time Low Range 121 sec Normal [facility] Comment on above: Result Comment: Norm al: 96-167 Secs(Unheparinized) Stent Implant Range: >300 Secs Sheath Removal: 150-170 Secs CRRT: 180-220 Secs (Continous Renal Replacement Therapy) Performed By: #### 1 [id number] #### [facility] [address] [place] [address] CBCon 08-04-2018 Erythrocyte distribution width Ratio (RBC) 15.8 % High 12.0-15.4 [facility] Comment on above: Performed By: #### 1 [id number] #### [facility] [address] [place] [address] Hematocrit Volume Fraction (Bld) 41.8 % Normal 36.5-46.6 [facility] Comment on above: Performed By: #### 1 [id number] #### [facility] [address] [place] [address] Hemoglobin mass conc (Bld) 13.0 g/dL Normal 11.8-15.3 [facility] Comment on above: Performed By: #### 1 [id number] #### [facility] [address] [place] [address] MCH Entitic mass (RBC) 25.8 pg Low 27.5-33.0 [facility] Comment on above: Performed By: #### 1 [id number] #### [facility] [address] [place] [address] MCHC mass conc (RBC) 31.1 g/dL Normal 30.1-35.0 [facility] Comment on above: Performed By: #### 1 [id number] #### [facility] [address] [place] [address] MCV Entitic volume (RBC) 83.1 fL Low 85.4-100.0 [facility] Comment on above: Performed By: #### 1 [id number] #### [facility] [address] [place] [address] NRBC Absolute 0.00 10*3/uL Normal [facility] Comment on above: Performed By: #### 1 [id number] #### [facility] [address] [place] [address] NRBC Automated 0.0 /100{WBCs} Normal [facility] Comment on above: Performed By: #### 1 [id number] #### [facility] [address] [place] [address] Platelet mean volume Entitic volume (Bld) 11.5 fL Normal 9.9-12.1 [facility] Comment on above: Performed By: #### 1 [id number] #### [facility] [address] [place] [address] Platelets #/vol (Bld) 233 10*3/uL Normal 155-404 [facility] Comment on above: Performed By: #### 1 [id number] #### [facility] [address] [place] [address] RBC #/vol (Bld) 5.03 10*6/uL Normal 3.85-5.10 [facility] Comment on above: Performed By: #### 1 [id number] #### [facility] [address] [place] [address] 75359 RDW SD 46.8 fL Normal 39.3-48.6 [facility] Healthcare Comment on above: Performed By: #### 1 [id number] #### [facility] [address] [place] [address] 66972 WBC #/vol (Bld) 11.2 10*3/uL High 4.4-9.9 [facility] Comment on above: Performed By: #### 1 [id number] #### [facility] [address] [place] [address] 36392 Prothrombin Timeon 8 INR Coag RelTime (PPP) 1.18 {INR} High 0.90-1.10 [facility] Healthcare Comment on above: Performed By: #### 1 [id number] #### [facility] [address] [place] [address] Prothrombin time (PT) Coag time (PPP) 13.4 s High 9.7-12.7 [facility] Comment on above: Result Comment: Delt a check investigation completed per policy PLEASE NOTE NEW REFERENCE RANGE EFFECTIVE 2018 Performed By: #### 1 [id number] #### [facility] [address] [place] [address] 59792 Basic Metabolic Panelon 12-0 Anion gap molar conc 14 mmol/L Normal 10-20 [facility] Healthcare Comment on above: Performed By: #### 1 [id number] #### [facility] [address] [place] [address] [place] [address] Calcium mass conc 9.5 mg/dL Normal 8.6-10.3 [facility] Comment on above: Performed By: #### 1 [id number] #### [facility] [address] [place] [address] Chloride molar conc 103 mmol/L Normal 98-107 [facility] Comment on above: Performed By: #### 1 [id number] #### [facility] [address] [place] [address] Creatinine mass conc 0.94 mg/dL Normal 0.50-1.05 [facility] Comment on above: Performed By: #### 1 [id number] #### [facility] [address] [place] [address] 33663 GFR/1.73 sq M.predicted MDRD vol rate/area mL/min/{1.73_m2} Normal [facility] Comment on above: Result Comment: Inte rpretation for Chronic Kidney Disease: Stages 1&2 >60 Healthy or potential kidney damage. Mild decrease of GFR. Stage 3 30-59 Moderate decrease of GFR. Stage 4 15-29 Severe decrease of GFR. Stage 5 <15 Kidney failure or on dialysis. Performed By: #### 1 [id number] #### [facility] [address] [place] [address] 45778 Glucose mass conc 81 mg/dL Normal 70-100 [facility] Comment on above: Performed By: #### 1 [id number] #### [facility] [address] [place] [address] 04301 HCO3 molar conc (Bld) 26 mmol/L Normal 21-32 [facility] Comment on above: Performed By: #### 1 [id number] #### [facility] [address] [place] [address] Potassium molar conc 3.8 mmol/L Normal 3.5-5.1 [facility] Comment on above: Performed By: #### 1 [id number] #### [facility] [address] [place] [address] Sodium molar conc 139 mmol/L Normal 136-145 [facility] Comment on above: Performed By: #### 1 [id number] #### [facility] [address] [place] [address] 03901 Urea nitrogen mass conc 10 mg/dL Normal 6-23 [facility] Comment on above: Performed By: #### 1 [id number] #### [facility] [address] [place] [address] 39585 Urea nitrogen/Creatinine mass ratio 11 mg/mg Normal 5-25 [facility] Comment on above: Performed By: #### 1 [id number] #### [facility] [address] [place] [address] 35700 CBCon 08-02-2018 Erythrocyte distribution width Ratio (RBC) 15.9 % High 12.0-15.4 [facility] Comment on above: Performed By: #### 1 [id number] #### [facility] [address] [place] [address] 50044 Hematocrit Volume Fraction (Bld) 47.6 % High 36.5-46.6 [facility] Comment on above: Performed By: #### 1 [id number] #### [facility] [address] [place] [address] 70521 Hemoglobin mass conc (Bld) 14.3 g/dL Normal 11.8-15.3 [facility] Comment on above: Performed By: #### 1 [id number] #### [facility] [address] [place] [address] 63689 MCH Entitic mass (RBC) 26.1 pg Low 27.5-33.0 [facility] Comment on above: Performed By: #### 1 [id number] #### [facility] [address] [place] [address] 07061 MCHC mass conc (RBC) 30.0 g/dL Low 30.1-35.0 [facility] Comment on above: Performed By: #### 1 [id number] #### [facility] [address] [place] [address] 85665 MCV Entitic volume (RBC) 86.9 fL Normal 85.4-100.0 [facility] Comment on above: Performed By: #### 1 [id number] #### [facility] [address] [place] [address] 73972 NRBC Absolute 0.00 10*3/uL Normal [facility] Comment on above: Performed By: #### 1 [id number] #### [facility] [address] [place] [address] 82934 NRBC Automated 0.0 /100{WBCs} Normal [facility] Comment on above: Performed By: #### 1 [id number] #### [facility] [address] [place] [address] Platelet mean volume Entitic volume (Bld) 13.7 fL High 9.9-12.1 [facility] Comment on above: Performed By: #### 1 [id number] #### [facility] [address] [place] [address] Platelets #/vol (Bld) 223 10*3/uL Normal 155-404 [facility] Comment on above: Performed By: #### 1 [id number] #### [facility] [address] [place] [address] 68691 RBC #/vol (Bld) 5.48 10*6/uL High 3.85-5.10 [facility] Comment on above: Performed By: #### 1 [id number] #### [facility] [address] [place] [address] 75510 RDW SD 50.1 fL High 39.3-48.6 [facility] Comment on above: Performed By: #### 1 [id number] #### [facility] [address] [place] [address] 54346 WBC #/vol (Bld) 12.6 10*3/uL High 4.4-9.9 [facility] Comment on above: Performed By: #### 1 [id number] #### [facility] [address] [place] [address] 98617 Prothrombin Timeon 8 INR Coag RelTime (PPP) 3.04 {INR} High 0.90-1.10 [facility] Comment on above: Performed By: #### 1 [id number] #### [facility] [address] [place] [address] 11549 Prothrombin time (PT) Coag time (PPP) 35.1 s High 9.7-12.7 [facility] Comment on above: Result Comment: MEGAN RUBIN NOTE NEW REFERENCE RANGE EFFECTIVE 2018 Performed By: #### 1 [id number] #### [facility] [address] [place] [address] 15060 Basic Metabolic Panelon 11-0 Anion gap molar conc 11 mmol/L Normal 10-20 [facility] Comment on above: Performed By: #### 1 [id number] #### [facility] [address] [place] [address] 49328 Calcium mass conc 9.0 mg/dL Normal 8.6-10.3 [facility] Comment on above: Performed By: #### 1 [id number] #### [facility] [address] [place] [address] 61539 Chloride molar conc 99 mmol/L Normal 98-107 [facility] Comment on above: Performed By: #### 1 [id number] #### [facility] [address] [place] [address] 83755 Creatinine mass conc 1.00 mg/dL Normal 0.50-1.05 [facility] Comment on above: Performed By: #### 1 [id number] #### [facility] [address] [place] [address] 19558 GFR/1.73 sq M.predicted MDRD vol rate/area 59 mL/min/{1.73_m2} Normal [facility] Comment on above: Result Comment: Inte rpretation for Chronic Kidney Disease: Stages 1&2 >60 Healthy or potential kidney damage. Mild decrease of GFR. Stage 3 30-59 Moderate decrease of GFR. Stage 4 15-29 Severe decrease of GFR. Stage 5 <15 Kidney failure or on dialysis. Performed By: #### 1 [id number] #### [facility] [address] [place] [address] 42931 Glucose mass conc 81 mg/dL Normal 70-100 [facility] Comment on above: Performed By: #### 1 [id number] #### [facility] [address] [place] [address] 42936 HCO3 molar conc (Bld) 27 mmol/L Normal 21-32 [facility] Comment on above: Performed By: #### 1 [id number] #### [facility] [address] [place] [address] Potassium molar conc 4.1 mmol/L Normal 3.5-5.1 [facility] Comment on above: Performed By: #### 1 [id number] #### [facility] [address] [place] [address] Sodium molar conc 133 mmol/L Low 136-145 [facility] Comment on above: Performed By: #### 1 [id number] #### [facility] [address] [place] [address] Urea nitrogen mass conc 14 mg/dL Normal 6-23 [facility] Comment on above: Performed By: #### 1 [id number] #### [facility] [address] [place] [address] Urea nitrogen/Creatinine mass ratio 14 mg/mg Normal 5-25 [facility] Comment on above: Performed By: #### 1 [id number] #### [facility] [address] [place] [address] Magnesiumon 07-01-2018 Magnesium mass conc 1.9 mg/dL Normal 1.6-2.4 [facility] Comment on above: Performed By: #### 1 [id number] #### [facility] [address] [place] [address] Prothrombin Timeon 8 INR Coag RelTime (PPP) 3.10 {INR} High 0.90-1.10 [facility] Comment on above: Performed By: #### 1 [id number] #### [facility] [address] [place] [address] Prothrombin time (PT) Coag time (PPP) 35.8 s High 9.7-12.7 [facility] Comment on above: Result Comment: PLEA NOTE NEW REFERENCE RANGE EFFECTIVE 2018 Performed By: #### 1 [id number] #### [facility] [address] [place] [address] Basic Metabolic Panelon Anion gap molar conc 12 mmol/L Normal 10-20 [facility] Comment on above: Performed By: #### 1 [id number] #### [facility] [address] [place] [address] Calcium mass conc 9.0 mg/dL Normal 8.6-10.3 [facility] Comment on above: Performed By: #### 1 [id number] #### [facility] [address] [place] [address] 84904 Chloride molar conc 101 mmol/L Normal 98-107 [facility] Comment on above: Performed By: #### 1 [id number] #### [facility] [address] [place] [address] Creatinine mass conc 1.04 mg/dL Normal 0.50-1.05 [facility] Comment on above: Performed By: #### 1 [id number] #### [facility] [address] [place] [address] 66552 GFR/1.73 sq M.predicted MDRD vol rate/area 56 mL/min/{1.73_m2} Normal [facility] Comment on above: Result Comment: Inte rpretation for Chronic Kidney Disease: Stages 1&2 >60 Healthy or potential kidney damage. Mild decrease of GFR. Stage 3 30-59 Moderate decrease of GFR. Stage 4 15-29 Severe decrease of GFR. Stage 5 <15 Kidney failure or on dialysis. Performed By: #### 1 [id number] #### [facility] [address] [place] [address] 95822 Glucose mass conc 89 mg/dL Normal 70-100 [facility] Comment on above: Performed By: #### 1 [id number] #### [facility] [address] [place] [address] 53196 HCO3 molar conc (Bld) 25 mmol/L Normal 21-32 [facility] Comment on above: Performed By: #### 1 [id number] #### [facility] [address] [place] [address] 60206 Potassium molar conc 4.3 mmol/L Normal 3.5-5.1 [facility] Comment on above: Performed By: #### 1 [id number] #### [facility] [address] [place] [address] 35545 Sodium molar conc 134 mmol/L Low 136-145 [facility] Comment on above: Performed By: #### 1 [id number] #### [facility] [address] [place] [address] Urea nitrogen mass conc 12 mg/dL Normal 6-23 [facility] Comment on above: Performed By: #### 1 [id number] #### [facility] [address] [place] [address] Urea nitrogen/Creatinine mass ratio 12 mg/mg Normal 5-25 [facility] Comment on above: Performed By: #### 1 [id number] #### [facility] [address] [place] [address] Magnesiumon 06-30-2018 Magnesium mass conc 2.0 mg/dL Normal 1.6-2.4 [facility] Comment on above: Performed By: #### 1 [id number] #### [facility] [address] [place] [address] Prothrombin Timeon 8 INR Coag RelTime (PPP) 2.93 {INR} High 0.90-1.10 [facility] Comment on above: Performed By: #### 2 [id number] #### [facility] [address] [place] [address] Prothrombin time (PT) Coag time (PPP) 33.9 s High 9.7-12.7 [facility] Comment on above: Result Comment: MEGAN RUBIN NOTE NEW REFERENCE RANGE EFFECTIVE 2018 Performed By: #### 2 [id number] #### [facility] [address] [place] [address] Basic Metabolic Panelon 10-3 Anion gap molar conc 8 mmol/L Low 10-20 [facility] Comment on above: Performed By: #### 2 [id number] #### [facility] [address] [place] [address] Calcium mass conc 8.7 mg/dL Normal 8.6-10.3 [facility] Comment on above: Performed By: #### 2 [id number] #### [facility] [address] [place] [address] Chloride molar conc 103 mmol/L Normal 98-107 [facility] Comment on above: Performed By: #### 2 [id number] #### [facility] [address] [place] [address] Creatinine mass conc 0.89 mg/dL Normal 0.50-1.05 [facility] Comment on above: Performed By: #### 2 [id number] #### [facility] [address] [place] [address] GFR/1.73 sq M.predicted MDRD vol rate/area mL/min/{1.73_m2} Normal [facility] Comment on above: Result Comment: Inte rpretation for Chronic Kidney Disease: Stages 1&2 >60 Healthy or potential kidney damage. Mild decrease of GFR. Stage 3 30-59 Moderate decrease of GFR. Stage 4 15-29 Severe decrease of GFR. Stage 5 <15 Kidney failure or on dialysis. Performed By: #### 2 [id number] #### [facility] [address] [place] [address] Glucose mass conc 125 mg/dL High 70-100 [facility] Comment on above: Performed By: #### 2 [id number] #### [facility] [address] [place] [address] HCO3 molar conc (Bld) 26 mmol/L Normal 21-32 [facility] Comment on above: Performed By: #### 2 [id number] #### [facility] [address] [place] [address] Potassium molar conc 4.0 mmol/L Normal 3.5-5.1 [facility] Comment on above: Performed By: #### 2 [id number] #### [facility] [address] [place] [address] Sodium molar conc 133 mmol/L Low 136-145 [facility] Comment on above: Performed By: #### 2 [id number] #### [facility] [address] [place] [address] Urea nitrogen mass conc 10 mg/dL Normal 6-23 [facility] Comment on above: Performed By: #### 2 [id number] #### [facility] [address] [place] [address] Urea nitrogen/Creatinine mass ratio 11 mg/mg Normal 5-25 [facility] Comment on above: Performed By: #### 2 [id number] #### [facility] [address] [place] [address] Magnesiumon 06-29-2018 Magnesium mass conc 1.8 mg/dL Normal 1.6-2.4 [facility] Comment on above: Performed By: #### 2 [id number] #### [facility] [address] [place] [address] 29654 Prothrombin Timeon 8 INR Coag RelTime (PPP) 3.23 {INR} High 0.90-1.10 [facility] Comment on above: Performed By: #### 2 [id number] #### [facility] [address] [place] [address] 02539 Prothrombin time (PT) Coag time (PPP) 37.4 s High 9.7-12.7 [facility] Comment on above: Result Comment: PLEFranco RUBIN NOTE NEW REFERENCE RANGE EFFECTIVE 2018 Performed By: #### 2 [id number] #### [facility] [address] [place] [address] 04941 Basic Metabolic Panelon 06-01 Anion gap molar conc 11 mmol/L Normal 10-20 [facility] Comment on above: Performed By: #### 2 [id number] #### [facility] [address] [place] [address] 38899 Calcium mass conc 8.5 mg/dL Low 8.6-10.3 [facility] Comment on above: Performed By: #### 2 518354 #### [facility] [address] [place] [address] 18628 Chloride molar conc 104 mmol/L Normal 98-107 [facility] Comment on above: Performed By: #### 2 [id number] #### [facility] [address] [place] [address] Creatinine mass conc 0.90 mg/dL Normal 0.50-1.05 [facility] Comment on above: Performed By: #### 2 [id number] #### [facility] [address] [place] [address] 21539 GFR/1.73 sq M.predicted MDRD vol rate/area mL/min/{1.73_m2} Normal [facility] Comment on above: Result Comment: Inte rpretation for Chronic Kidney Disease: Stages 1&2 >60 Healthy or potential kidney damage. Mild decrease of GFR. Stage 3 30-59 Moderate decrease of GFR. Stage 4 15-29 Severe decrease of GFR. Stage 5 <15 Kidney failure or on dialysis. Performed By: #### 2 [id number] #### [facility] [address] [place] [address] Glucose mass conc 99 mg/dL Normal 70-100 [facility] Comment on above: Performed By: #### 2 [id number] #### [facility] [address] [place] [address] HCO3 molar conc (Bld) 23 mmol/L Normal 21-32 [facility] Comment on above: Performed By: #### 2 [id number] #### [facility] [address] [place] [address] Potassium molar conc 4.3 mmol/L Normal 3.5-5.1 [facility] Comment on above: Performed By: #### 2 681754 #### [facility] [address] [place] [address] Sodium molar conc 134 mmol/L Low 136-145 [facility] Comment on above: Performed By: #### 2 [id number] #### [facility] [address] [place] [address] Urea nitrogen mass conc 15 mg/dL Normal 6-23 [facility] Comment on above: Performed By: #### 2 [id number] #### [facility] [address] [place] [address] Urea nitrogen/Creatinine mass ratio 17 mg/mg Normal 5-25 [facility] Comment on above: Performed By: #### 2 [id number] #### [facility] [address] [place] [address] Magnesiumon 06-28-2018 Magnesium mass conc 1.9 mg/dL Normal 1.6-2.4 [facility] Comment on above: Performed By: #### 2 [id number] #### [facility] [address] [place] [address] Prothrombin Timeon 8 INR Coag RelTime (PPP) 4.27 {INR} High 0.90-1.10 [facility] Comment on above: Performed By: #### 2 [id number] #### [facility] [address] [place] [address] 78986 Prothrombin time (PT) Coag time (PPP) 49.7 s High 9.7-12.7 [facility] Comment on above: Result Comment: MEGAN RUBIN NOTE NEW REFERENCE RANGE EFFECTIVE 2018 Performed By: #### 2 [id number] #### [facility] [address] [place] [address] 78182 Basic Metabolic Panelon 05-31 Anion gap molar conc 12 mmol/L Normal 10-20 [facility] Comment on above: Performed By: #### 2 [id number] #### [facility] [address] [place] [address] 29167 Calcium mass conc 8.4 mg/dL Low 8.6-10.3 [facility] Comment on above: Performed By: #### 2 [id number] #### [facility] [address] [place] [address] 42295 Chloride molar conc 109 mmol/L High 98-107 [facility] Comment on above: Performed By: #### 2 [id number] #### [facility] [address] [place] [address] 14393 Creatinine mass conc 1.04 mg/dL Normal 0.50-1.05 [facility] Comment on above: Performed By: #### 2 [id number] #### [facility] [address] [place] [address] 75331 GFR/1.73 sq M.predicted MDRD vol rate/area 56 mL/min/{1.73_m2} Normal [facility] Comment on above: Result Comment: Inte rpretation for Chronic Kidney Disease: Stages 1&2 >60 Healthy or potential kidney damage. Mild decrease of GFR. Stage 3 30-59 Moderate decrease of GFR. Stage 4 15-29 Severe decrease of GFR. Stage 5 <15 Kidney failure or on dialysis. Performed By: #### 2 [id number] #### [facility] [address] [place] [address] 60522 Glucose mass conc 84 mg/dL Normal 70-100 [facility] Comment on above: Performed By: #### 2 [id number] #### [facility] [address] [place] [address] HCO3 molar conc (Bld) 21 mmol/L Normal 21-32 [facility] Comment on above: Performed By: #### 2 [id number] #### [facility] [address] [place] [address] Potassium molar conc 4.5 mmol/L Normal 3.5-5.1 [facility] Comment on above: Performed By: #### 2 [id number] #### [facility] [address] [place] [address] Sodium molar conc 138 mmol/L Normal 136-145 [facility] Comment on above: Performed By: #### 2 [id number] #### [facility] [address] [place] [address] Urea nitrogen mass conc 16 mg/dL Normal 6-23 [facility] Comment on above: Performed By: #### 2 [id number] #### [facility] [address] [place] [address] Urea nitrogen/Creatinine mass ratio 15 mg/mg Normal 5-25 [facility] Comment on above: Performed By: #### 2 [id number] #### [facility] [address] [place] [address] Anion gap molar conc 10 mmol/L Normal 10-20 [facility] Comment on above: Performed By: #### 2 [id number] #### [facility] [address] [place] [address] Calcium mass conc 8.6 mg/dL Normal 8.6-10.3 [facility] Comment on above: Performed By: #### 2 [id number] #### [facility] [address] [place] [address] Chloride molar conc 107 mmol/L Normal 98-107 [facility] Comment on above: Performed By: #### 2 894589 #### [facility] [address] [place] [address] Creatinine mass conc 1.05 mg/dL Normal 0.50-1.05 [facility] Comment on above: Performed By: #### 2 [id number] #### [facility] [address] [place] [address] GFR/1.73 sq M.predicted MDRD vol rate/area 56 mL/min/{1.73_m2} Normal [facility] Comment on above: Result Comment: Inte rpretation for Chronic Kidney Disease: Stages 1&2 >60 Healthy or potential kidney damage. Mild decrease of GFR. Stage 3 30-59 Moderate decrease of GFR. Stage 4 15-29 Severe decrease of GFR. Stage 5 <15 [facility] failure or on dialysis. Performed By: #### 2 [id number] #### [facility] [address] [place] [address] Glucose mass conc 95 mg/dL Normal 70-100 [facility] Comment on above: Performed By: #### 2 [id number] #### [facility] [address] [place] [address] HCO3 molar conc (Bld) 26 mmol/L Normal 21-32 [facility] Comment on above: Performed By: #### 2 [id number] #### [facility] [address] [place] [address] Potassium molar conc 4.3 mmol/L Normal 3.5-5.1 [facility] Comment on above: Performed By: #### 2 [id number] #### [facility] [address] [place] [address] Sodium molar conc 139 mmol/L Normal 136-145 [facility] Comment on above: Performed By: #### 2 [id number] #### [facility] [address] [place] [address] Urea nitrogen mass conc 17 mg/dL Normal 6-23 [facility] Comment on above: Performed By: #### 2 [id number] #### [facility] [address] [place] [address] Urea nitrogen/Creatinine mass ratio 16 mg/mg Normal 5-25 [facility] Comment on above: Performed By: #### 2 [id number] #### [facility] [address] [place] [address] CBC With Differentialon 10-2 Basophils #/vol (Bld) 0.11 10*3/uL High 0.01-0.07 [facility] Comment on above: Performed By: #### 2 [id number] #### [facility] [address] [place] [address] Basophils/100 WBC (Bld) 1.2 % Normal 0.1-1.2 [facility] Comment on above: Performed By: #### 2 [id number] #### [facility] [address] [place] [address] Eosinophils #/vol (Bld) 0.45 10*3/uL Normal 0.04-0.50 [facility] Comment on above: Performed By: #### 2 [id number] #### [facility] [address] [place] [address] Eosinophils/100 WBC (Bld) 4.7 % Normal 0.0-8.1 [facility] Comment on above: Performed By: #### 2 [id number] #### [facility] [address] [place] [address] Erythrocyte distribution width Ratio (RBC) 15.7 % High 12.0-15.4 [facility] Comment on above: Performed By: #### 2 [id number] #### [facility] [address] [place] [address] Hematocrit Volume Fraction (Bld) 38.5 % Normal 36.5-46.6 [facility] Comment on above: Performed By: #### 2 [id number] #### [facility] [address] [place] [address] Hemoglobin mass conc (Bld) 11.9 g/dL Normal 11.8-15.3 [facility] Comment on above: Performed By: #### 2 [id number] #### [facility] [address] [place] [address] Imm Grans Absolute 0.09 10*3/uL Normal 0.00-0.21 [facility] Comment on above: Performed By: #### 2 [id number] #### [facility] [address] [place] [address] Immature granulocytes #/vol (Bld) 0.9 % Normal [facility] Comment on above: Performed By: #### 2 [id number] #### [facility] [address] [place] [address] Lymphocytes #/vol (Bld) 3.15 10*3/uL High 0.40-2.84 [facility] Comment on above: Performed By: #### 2 [id number] #### [facility] [address] [place] [address] Lymphocytes/100 WBC (Bld) 33.2 % Normal 15.7-50.5 [facility] Comment on above: Performed By: #### 2 [id number] #### [facility] [address] [place] [address] MCH Entitic mass (RBC) 26.1 pg Low 27.5-33.0 [facility] Comment on above: Performed By: #### 2 [id number] #### [facility] [address] [place] [address] MCHC mass conc (RBC) 30.9 g/dL Normal 30.1-35.0 [facility] Comment on above: Performed By: #### 2 [id number] #### [facility] [address] [place] [address] MCV Entitic volume (RBC) 84.4 fL Low 85.4-100.0 [facility] Comment on above: Performed By: #### 2 [id number] #### [facility] [address] [place] [address] Monocytes #/vol (Bld) 0.91 10*3/uL High 0.25-0.83 [facility] Comment on above: Performed By: #### 2 [id number] #### [facility] [address] [place] [address] Monocytes/100 WBC (Bld) 9.6 % Normal 4.8-12.7 [facility] Comment on above: Performed By: #### 2 [id number] #### [facility] [address] [place] [address] Neutrophils Absolute 4.78 10*3/uL Normal 1.95-6.85 [facility] Comment on above: Performed By: #### 2 [id number] #### [facility] [address] [place] [address] Neutrophils/100 WBC (Bld) 50.4 % Normal 36.8-73.2 [facility] Comment on above: Performed By: #### 2 [id number] #### [facility] [address] [place] [address] NRBC Absolute 0.00 10*3/uL Normal [facility] Comment on above: Performed By: #### 2 [id number] #### [facility] [address] [place] [address] NRBC Automated 0.0 /100{WBCs} Normal [facility] Comment on above: Performed By: #### 2 [id number] #### [facility] [address] [place] [address] Platelet mean volume Entitic volume (Bld) 11.1 fL Normal 9.9-12.1 [facility] Comment on above: Performed By: #### 2 [id number] #### [facility] [address] [place] [address] Platelets #/vol (Bld) 215 10*3/uL Normal 155-404 [facility] Comment on above: Performed By: #### 2 [id number] #### [facility] [address] [place] [address] RBC #/vol (Bld) 4.56 10*6/uL Normal 3.85-5.10 [facility] Comment on above: Performed By: #### 2 [id number] #### [facility] [address] [place] [address] RDW SD 48.0 fL Normal 39.3-48.6 [facility] Comment on above: Performed By: #### 2 [id number] #### [facility] [address] [place] [address] WBC #/vol (Bld) 9.5 10*3/uL Normal 4.4-9.9 [facility] Comment on above: Performed By: #### 2 [id number] #### [facility] [address] [place] [address] Comprehensive Metabolic Pane selene 06-27-2018 Albumin mass conc 3.9 g/dL Normal 3.4-5.0 [facility] Comment on above: Performed By: #### 1 [id number] #### [facility] [address] [place] [address] Albumin/Globulin mass ratio 1.3 {ratio} Normal 0.9-2.4 [facility] Comment on above: Performed By: #### 1 [id number] #### [facility] [address] [place] [address] ALP enzyme act/vol 150 U/L High 45-117 [facility] Comment on above: Performed By: #### 1 [id number] #### [facility] [address] [place] [address] ALT enzyme act/vol 11 U/L Normal 7-45 [facility] Comment on above: Performed By: #### 1 [id number] #### [facility] [address] [place] [address] Anion gap molar conc 13 mmol/L Normal 10-20 [facility] Comment on above: Performed By: #### 1 [id number] #### [facility] [address] [place] [address] AST enzyme act/vol 21 U/L Normal 13-39 [facility] Comment on above: Performed By: #### 1 [id number] #### [facility] [address] [place] [address] Bilirubin mass conc 0.3 mg/dL Normal 0.0-1.2 [facility] Comment on above: Performed By: #### 1 [id number] #### [facility] [address] [place] [address] Calcium mass conc 9.0 mg/dL Normal 8.6-10.3 [facility] Comment on above: Performed By: #### 1 [id number] #### [facility] [address] [place] [address] Chloride molar conc 103 mmol/L Normal 98-107 [facility] Comment on above: Performed By: #### 1 [id number] #### [facility] [address] [place] [address] Creatinine mass conc 1.09 mg/dL High 0.50-1.05 [facility] Comment on above: Performed By: #### 1 [id number] #### [facility] [address] [place] [address] GFR/1.73 sq M.predicted MDRD vol rate/area 53 mL/min/{1.73_m2} Normal [facility] Comment on above: Result Comment: Inte rpretation for Chronic Kidney Disease: Stages 1&2 >60 Healthy or potential kidney damage. Mild decrease of GFR. Stage 3 30-59 Moderate decrease of GFR. Stage 4 15-29 Severe decrease of GFR. Stage 5 <15 Kidney failure or on dialysis. Performed By: #### 1 [id number] #### [facility] [address] [place] [address] Glucose mass conc 94 mg/dL Normal 70-100 [facility] Comment on above: Performed By: #### 1 [id number] #### [facility] [address] [place] [address] HCO3 molar conc (Bld) 27 mmol/L Normal 21-32 [facility] Comment on above: Performed By: #### 1 [id number] #### [facility] [address] [place] [address] Potassium molar conc 4.3 mmol/L Normal 3.5-5.1 [facility] Comment on above: Performed By: #### 1 [id number] #### [facility] [address] [place] [address] Protein mass conc 6.8 g/dL Normal 6.4-8.2 [facility] Comment on above: Performed By: #### 1 [id number] #### [facility] [address] [place] [address] Sodium molar conc 139 mmol/L Normal 136-145 [facility] Comment on above: Performed By: #### 1 [id number] #### [facility] [address] [place] [address] Urea nitrogen mass conc 19 mg/dL Normal 6-23 [facility] Comment on above: Performed By: #### 1 [id number] #### [facility] [address] [place] [address] Urea nitrogen/Creatinine mass ratio 17 mg/mg Normal 5-25 [facility] Comment on above: Performed By: #### 1 [id number] #### [facility] [address] [place] [address] Magnesiumon 06-27-2018 Magnesium mass conc 2.0 mg/dL Normal 1.6-2.4 [facility] Comment on above: Performed By: #### 2 [id number] #### [facility] [address] [place] [address] Magnesium mass conc 1.9 mg/dL Normal 1.6-2.4 [facility] Comment on above: Performed By: #### 1 [id number] #### [facility] [address] [place] [address] Partial Thromboplastin Timeo n 06-27-2018 aPTT Coag time (Bld) 29.7 s Normal 25.0-36.0 [facility] Comment on above: Result Comment: . The APTT is no longer used for monitoring Unfractionated Heparin Therapy. For monitoring Heparin Therapy, use the Heparin Assay. Performed By: #### 3 [id number] #### [facility] [address] [place] [address] Prothrombin Timeon 8 INR Coag RelTime (PPP) 3.54 {INR} High 0.90-1.10 [facility] Comment on above: Performed By: #### 3 [id number] #### [facility] [address] [place] [address] Prothrombin time (PT) Coag time (PPP) 41.0 s High 9.7-12.7 [facility] Comment on above: Result Comment: MEGAN RUBIN NOTE NEW REFERENCE RANGE EFFECTIVE 2018 Performed By: #### 3 [id number] #### [facility] [address] [place] [address] INR Coag RelTime (PPP) 2.98 {INR} High 0.90-1.10 [facility] Comment on above: Performed By: #### 3 [id number] #### [facility] [address] [place] [address] Prothrombin time (PT) Coag time (PPP) 33.4 s High 9.8-12.7 [facility] Comment on above: Performed By: #### 3 [id number] #### [facility] [address] [place] [address] TSHon 06-27-2018 Thyrotropin Qn 7.04 mU/L High 0.44-3.98 [facility] Comment on above: Performed By: #### 1 [id number] #### [facility] [address] [place] [address] Thyroxine, Freeon 06-27-2018 Thyroxine, Free 0.90 ng/dL Normal 0.61-1.12 [facility] Comment on above: Performed By: #### 1 [id number] #### [facility] [address] [place] [address] Triiodothyronine, Freeon Triiodothyronine, Free 2.3 pg/mL Normal 1.8-4.2 [facility] Comment on above: Performed By: #### F RT3 #### [facility] [address] [place] [address] Drugs of Abuse, Urine(7)on 0 05-12-2018 Amphetamines/Metamphet amines, Urine Not Detected Normal [facility] Comment on above: Performed By: #### 7 [id number] #### [facility] [address] [place] [address] Barbiturates, Urine Detected Abnormal [facility] Comment on above: Performed By: #### 7 [id number] #### [facility] [address] [place] [address] Benzodiazepines, Urine Not Detected Normal [facility] Comment on above: Performed By: #### 7 [id number] #### [facility] [address] [place] [address] Cannabinoids, Urine Not Detected Normal [facility] Comment on above: Performed By: #### 7 [id number] #### [facility] [address] [place] [address] Cocaine, Urine Not Detected Normal [facility] Comment on above: Performed By: #### 7 [id number] #### [facility] [address] [place] [address] Methadone, Urine Not Detected Normal [facility] Comment on above: Performed By: #### 7 [id number] #### [facility] [address] [place] [address] Opiates, Urine Not Detected Normal [facility] Comment on above: Performed By: #### 7 [id number] #### [facility] [address] [place] [address] PCP, Urine Not Detected Normal [facility] Comment on above: Result Comment: Urin e toxicology screen results are to be used for medical purposes only. It is recommended that any result reported as Detected be confirmed by a more specific alternative chemical method. Drug Analyzed Cutoff Concentration(ng/mL) Barbiturates 200 Benzodiazepines 200 Cocaine 150 Opiates 300 Amphetamines 500 Cannabinoids 50 Methadone 150 PCP 25 Performed By: #### 7 [id number] #### [facility] [address] [place] [address] Vital Signs Date Time Vital Sign Value Performing Clinician Facility 04-24-2022 13:31-0400 Body height 157.48 cm Royiwoca Work Phone: [facility] trade[employer] 320 DO Work Phone: 04-24-2022 13:31-0400 Body mass index (BMI) [Ratio] 29.63 kg/m2 [employer] Work Phone: [facility] Madeleine [employer] 320 DO Work Phone: 04-24-2022 13:31-0400 Body surface area Derived from formula 1.75 m2 [employer] Work Phone: [facility] Madeleine [employer] 320 DO Work Phone: 04-24-2022 13:31-0400 Body weight 73.48 kg [employer]t Work Phone: [facility] Madeleine [employer] 320 DO Work Phone: 04-24-2022 13:31-0400 Diastolic blood pressure 60 mm[Hg] Shaikh Crystal Work Phone: [facility] [address] DO Work Phone: 04-24-2022 13:31-0400 Heart rate 85 /min Shaikh Crystal Work Phone: [facility] [address] DO Work Phone: 04-24-2022 13:31-0400 Systolic blood pressure 102 mm[Hg] Shaikh Crystal Work Phone: [facility] [address] DO Work Phone: 12-10-2021 06:30-0400 Body height 160.02 cm I Do Now I Don't Other [employer] Other 12-05-2021 08:47-0400 Body height 157.48 cm No PCP None [facility] [address] DO Work Phone: 12-05-2021 08:47-0400 Body mass index (BMI) [Ratio] 27.49 kg/m2 No PCP None [facility] [address] DO Work Phone: 12-05-2021 08:47-0400 Body surface area Derived from formula 1.69 m2 No PCP None [facility] [address] DO Work Phone: 12-05-2021 08:47-0400 Body weight 68.18 kg No PCP None [facility] [address] DO Work Phone: 12-05-2021 08:47-0400 Diastolic blood pressure 72 mm[Hg] No PCP None [facility] [address] DO Work Phone: 12-05-2021 08:47-0400 Heart rate 76 /min No PCP None [facility] [address] DO Work Phone: 12-05-2021 08:47-0400 Systolic blood pressure 104 mm[Hg] No PCP None [facility] [address] DO Work Phone: 10-14-2021 11:23-0500 20 1 Nadir Hoskins DO Work Phone: [facility] Heart-[place] 250 DO Work Phone: Comment on above: [id number] 10-13-2021 22:41-0500 Diastolic blood pressure 46 mm[Hg] DO Darian Itzkowitz Work Phone: [facility] 10-13-2021 22:41-0500 Heart rate 59 /min DO Darian Itzkowitz Work Phone: [facility] 10-13-2021 22:41-0500 Systolic blood pressure 80 mm[Hg] DO Darian Itzkowitz Work Phone: [facility] 10-13-2021 21:29-0500 Respiratory rate 18 /min DO Darian Itzkowitz Work Phone: [facility] 10-13-2021 21:29-0500 SaO2% (BldA) [Mass fraction] 96 % DO Darian Itzkowitz Work Phone: [facility] 10-13-2021 13:17-0500 Body height 160.02 cm DO Darian Itzkowitz Work Phone: [facility] 10-13-2021 13:17-0500 Body mass index (BMI) [Ratio] 26.5 kg/m2 DO Darian Itzkowitz Work Phone: [facility] 10-13-2021 13:17-0500 Body temperature 97.4 [degF] DO Darian Itzkowitz Work Phone: [facility] 10-13-2021 13:17-0500 Body weight 68.03 kg DO Darian Itzkowitz Work Phone: [facility] 11-25-2020 15:56-0400 Body Temperature 97.5 [degF] Darian Smiley [facility] 11-25-2020 15:56-0400 BP Diastolic 85 mm[Hg] Darian Baljit [facility] 11-25-2020 15:56-0400 BP Systolic 130 mm[Hg] Darian Baljit [facility] 11-25-2020 15:56-0400 Pulse (Heart Rate) 79 /min [facility] Baljit [facility] 11-25-2020 15:56-0400 Pulse Oximetry 98 % Dariandebbie Smiley [facility] 11-25-2020 15:56-0400 Respiratory Rate 18 /min [facility] Baljit [facility] 11-25-2020 15:56-0400 SaO2% (BldA) [Mass fraction] 98 % Darian Smiley Work Phone: [facility] 11-25-2020 15:19-0400 Height 157.48 cm Dariandebbie Smiley [facility] 11-25-2020 05:57-0400 Body weight 83.9 kg Darian Baljit [facility] 11-23-2020 18:10-0400 BMI (Body Mass Index) 33.9 kg/m2 [facility] Baljit [facility] 11-23-2020 18:10-0400 Body Temperature 97.9 [degF] Darian Baljit [facility] 11-23-2020 18:10-0400 Body weight 84.2 kg Darian Baljit [facility] 11-23-2020 18:10-0400 BP Diastolic 81 mm[Hg] Darian Baljit [facility] 11-23-2020 18:10-0400 BP Systolic 121 mm[Hg] Darianrakesh Smiley [facility] 11-23-2020 18:10-0400 Height 157.48 cm Darian Baljit [facility] 11-23-2020 18:10-0400 Pulse (Heart Rate) 83 /min Darianrakesh Smiley [facility] 11-23-2020 18:10-0400 Pulse Oximetry 97 % Dariandebbie Smiley [facility] 11-23-2020 18:10-0400 Respiratory Rate 19 /min [facility] Baljit [facility] 08-17-2020 03:00-0500 Body Temperature 97.5 [degF] [facility] Baljit [facility] 08-17-2020 03:00-0500 BP Diastolic 52 mm[Hg] [facility] Baljit [facility] 08-17-2020 03:00-0500 BP Systolic 98 mm[Hg] [facility] Baljit [facility] 08-17-2020 03:00-0500 Pulse (Heart Rate) 94 /min [facility] Baljit [facility] 08-17-2020 03:00-0500 Pulse Oximetry 99 % [facility] Baljit [facility] 08-17-2020 03:00-0500 Respiratory Rate 16 /min [facility] Baljit [facility] 08-16-2020 22:30-0500 BMI (Body Mass Index) 4648.4 kg/m2 [facility] Baljit [facility] 08-16-2020 22:30-0500 Body weight 81.1 kg [facility] Baljit [facility] 08-16-2020 22:30-0500 Height 13.21 cm [facility] Baljit [facility] 08-16-2020 22:18-0500 BP Diastolic 56 mm[Hg] [facility] Baljit [facility] 08-16-2020 22:18-0500 BP Systolic 107 mm[Hg] [facility] Baljit [facility] 08-16-2020 22:18-0500 Pulse (Heart Rate) 96 /min [facility] Baljit [facility] 08-16-2020 22:18-0500 Pulse Oximetry 95 % Darian Baljit [facility] 08-16-2020 22:18-0500 Respiratory Rate 18 /min [facility] Baljit [facility] 08-16-2020 15:38-0500 BMI (Body Mass Index) 28.3 kg/m2 [facility] Baljit [facility] 08-16-2020 15:38-0500 Body Temperature 97.4 [degF] [facility] Baljit [facility] 08-16-2020 15:38-0500 Body weight 72.57 kg [facility] Baljit [facility] 08-16-2020 15:38-0500 Height 160.02 cm [facility] Baljit [facility] 07-26-2020 01:57-0500 BP Diastolic 58 mm[Hg] [facility] Baljit [facility] 07-26-2020 01:57-0500 BP Systolic 118 mm[Hg] [facility] Baljit [facility] 07-26-2020 01:57-0500 Pulse (Heart Rate) 59 /min [facility] Baljit [facility] 07-26-2020 01:57-0500 Pulse Oximetry 97 % [facility] Baljit [facility] 07-26-2020 01:57-0500 Respiratory Rate 16 /min [facility] Baljit [facility] 07-26-2020 00:44-0500 BMI (Body Mass Index) 30.5 kg/m2 [facility] Lienks[facility]ate [facility] 07-26-2020 00:44-0500 Body Temperature 98.4 [degF] [facility] Baljit [facility] 07-26-2020 00:44-0500 Body weight 75.74 kg [facility] Baljit [facility] 07-26-2020 00:44-0500 Height 157.48 cm Darian Baljit [facility] 07-22-2020 22:23-0500 BP Diastolic 63 mm[Hg] Darian Baljit [facility] 07-22-2020 22:23-0500 BP Systolic 131 mm[Hg] Darian Baljit [facility] 07-22-2020 22:23-0500 Pulse (Heart Rate) 60 /min Darian Baljit [facility] 07-22-2020 22:23-0500 Pulse Oximetry 98 % [facility] Baljit [facility] 07-22-2020 22:23-0500 Respiratory Rate 18 /min [facility] Baljit [facility] 07-22-2020 17:54-0500 BMI (Body Mass Index) 31.8 kg/m2 [facility] Baljit [facility] 07-22-2020 17:54-0500 Body Temperature 98 [degF] [facility] Baljit [facility] 07-22-2020 17:54-0500 Body weight 78.9 kg [facility] Baljit [facility] 07-22-2020 17:54-0500 Height 157.48 cm [facility] Baljit [facility] 07-19-2020 10:11-0500 BP Diastolic 60 mm[Hg] Darian Baljit [facility] 07-19-2020 10:11-0500 BP Systolic 138 mm[Hg] Darian Baljit [facility] 07-19-2020 10:11-0500 Pulse (Heart Rate) 94 /min Darian Baljit [facility] 07-19-2020 10:11-0500 Pulse Oximetry 98 % [facility] Baljit [facility] 07-19-2020 10:11-0500 Respiratory Rate 16 /min [facility] Baljit [facility] 07-19-2020 07:25-0500 BMI (Body Mass Index) 30.9 kg/m2 [facility] Baljit [facility] 07-19-2020 07:25-0500 Body Temperature 98 [degF] [facility] Baljit [facility] 07-19-2020 07:25-0500 Body weight 76.7 kg [facility] Baljit [facility] 07-19-2020 07:25-0500 Height 157.48 cm [facility] [facility] 06-15-2020 21:00-0400 Body Temperature 98.1 [degF] [facility] Baljit [facility] 06-15-2020 21:00-0400 BP Diastolic 77 mm[Hg] [facility] Lienksnate [facility] 06-15-2020 21:00-0400 BP Systolic 124 mm[Hg] [facility]-15-2020 21:00-0400 Pulse (Heart Rate) 61 /min [facility] 06-15-2020 21:00-0400 Pulse Oximetry 96 % [facility] 06-15-2020 21:00-0400 Respiratory Rate 16 /min [facility] 06-15-2020 17:00-0400 BMI (Body Mass Index) 30.9 kg/m2 [facility] Lienksnate [facility] 06-15-2020 17:00-0400 Body weight 76.7 kg [facility] Baljit [facility] 06-15-2020 17:00-0400 Height 157.48 cm [facility] 06-07-2020 17:00-0400 Body Temperature 97.2 [degF] [facility] 06-07-2020 17:00-0400 BP Diastolic 71 mm[Hg] [facility] 06-07-2020 17:00-0400 BP Systolic 104 mm[Hg] [facility] 06-07-2020 17:00-0400 Pulse (Heart Rate) 60 /min [facility] 06-07-2020 17:00-0400 Pulse Oximetry 98 % [facility] 06-07-2020 17:00-0400 Respiratory Rate 14 /min [facility] 06-07-2020 06:56-0400 Body weight 84.1 kg [facility] Baljit [facility] 06-05-2020 14:28-0400 Height 157.48 cm [facility] Baljit [facility] 06-05-2020 06:29-0400 BMI (Body Mass Index) 32.8 kg/m2 [facility] Encounters Encounter Date Encounter Type Care Provider Facility Start: 09-03-2023 ambulatory [facility] Start: 09-02-2023 End: 09-03-2023 ambulatory [facility] Start: 09-02-2023 End: 09-02-2023 Subsequent hospital visit by physician [facility] Comment on above: ICD (implantable car dioverter-defibrillator) battery depletion Start: 08-31-2023 End: 08-31-2023 ambulatory Amanda Grace Other [employer] Other Start: 08-31-2023 Telephone encounter Amanda DE PAZ [facility] Start: 08-09-2023 End: 08-09-2023 ambulatory Amanda Grace Facility:[facility] Start: 08-09-2023 End: 08-09-2023 Patient encounter procedure MOLD SANDER Amanda Grace Work Phone: [facility]-Pacemaker Check Start: 08-09-2023 End: 08-09-2023 ambulatory MOLD SANDER Amanda Grace Work Phone: [facility] Work Phone: Comment on above: Persistent atrial fi brillation (HCC) (Primary Dx) Start: 08-02-2023 End: 08-02-2023 ambulatory Amanda Sanjay Other [employer] Other Start: 08-02-2023 Telephone encounter Amanda Herzog [facility] Start: 07-28-2023 Telephone encounter David Osei MD Work Phone: Cardiology Start: 07-25-2023 Follow-up encounter David Osei MD Work Phone: [facility] Start: 07-25-2023 ICD Remote F/U David fairbanks MD Work Phone: [facility] Start: 07-07-2023 ambulatory Arjun R NILL Facility : [facility] Start: 06-04-2023 ambulatory Arjun R NILL Facility : [place] Start: 06-03-2023 ambulatory Arjun NILL Facility:[facility] Start: 04-30-2023 Follow-up encounter David Osei MD Work Phone: [facility] Start: 04-30-2023 ICD Remote F/U David fairbanks MD Work Phone: [facility] Start: 04-17-2023 Follow-up encounter David Osei MD Work Phone: [facility] Start: 04-17-2023 ICD Remote F/U David fairbanks MD Work Phone: [facility] Start: 04-05-2023 Follow-up encounter David Osei MD Work Phone: [facility] Start: 04-05-2023 ICD Remote F/U David fairbanks MD Work Phone: [facility] Start: 03-29-2023 Rx Renewal Roy Crystal Work Phone: [facility] DO Work Phone: Start: 03-24-2023 Follow-up encounter David Osei MD Work Phone: [facility] Start: 03-24-2023 ICD Remote F/U David fairbanks MD Work Phone: [facility] Start: 03-20-2023 Follow-up encounter David Osei MD Work Phone: [facility] Start: 03-20-2023 ICD Remote F/U David fairbanks MD Work Phone: [facility] Start: 03-15-[address] Margareth Nunez F acility: Start: 02-28-2023 Follow-up encounter David Osei MD Work Phone: [facility] Start: 02-28-2023 ICD Remote F/U David fairbanks MD Work Phone: [facility] Start: 02-25-2023 Follow-up encounter David Osei MD Work Phone: [facility] Start: 02-25-2023 ICD Remote F/U David fairbanks MD Work Phone: [facility] Start: 01-28-2023 AUDIT Shaikh Crystal Work Phone: [facility] DO Work Phone: Start: 01-27-2023 End: 01-27-2023 ambulatory SHAIKH Shawna ROJAS Facility: Start: 01-26-2023 Rx Renewal Shaikh Crystal Work Phone: [facility] [address] DO Work Phone: Start: 01-03-2023 End: 01-03-2023 ambulatory ROY H FAWWAD Facility:H1 Start: 12-28-2022 End: 01-27-2023 ambulatory ROY H FAWWAD Facility:[facility]1 Start: 11-30-2022 End: 12-25-2022 ambulatory ROY H FAWWAD Facility:[facility]1 Start: 11-25-2022 Follow-up encounter David Osei MD Work Phone: [facility] Start: 11-25-2022 ICD Remote F/U David fairbanks MD Work Phone: [facility] Start: 10-28-2022 End: 11-27-2022 ambulatory ROY H FAWWAD Facility:[facility]1 Start: 10-26-2022 End: 10-27-[address] Juan Miguel FONTENOT Facility:[facility]1 Start: 10-23-2022 Letter encounter Anju Mason MILLER Work Phone: [facility] Start: 10-06-2022 End: 10-07-2022 ambulatory ROY H FAWWAD Facility:[facility]1 Start: 09-30-2022 End: 10-28-2022 ambulatory ROY H FAWWAD Facility:[facility]1 Start: 09-11-2022 Telephone encounter Research C oordinator Work Phone: Cardiology Comment on above: Research (IRB [id number] TRIM-AF) Start: 08-31-2022 End: 09-30-2022 ambulatory ROY H FAWWAD Facility:[facility]1 Start: 08-17-2022 Follow-up encounter David Osei MD Work Phone: [facility] Start: 08-17-2022 ICD Remote F/U David fairbanks MD Work Phone: [facility] Start: 07-30-2022 End: 08-30-2022 ambulatory ROY H FAWWAD Facility:[facility]1 Start: 07-27-2022 ambulatory Britta [facility] Comment on above: Opened In Error Start: 06-30-2022 End: 07-29-2022 ambulatory ROY H FAWWAD Facility:H1 Start: 06-29-2022 Other Royshawna Nod Work Phone: [facility] [address] DO Work Phone: Start: 06-29-2022 Follow-up encounter David Osei MD Work Phone: [facility] Start: 06-29-2022 ICD Remote F/U David fairbanks MD Work Phone: [facility] Start: 05-31-2022 End: 06-29-2022 ambulatory ROY Shawna CHIVOMeganWAD Facility:H1 Start: 05-28-2022 Follow-up encounter David Osei MD Work Phone: [facility] Start: 05-28-2022 ICD Remote F/U David fairbanks MD Work Phone: [facility] Start: 05-25-2022 ambulatory Ms. Inna Russell Facility: Start: 05-06-2022 Patient encounter procedure Shaikh Mallorymonserrat Work Phone: [facility] DO Work Phone: Start: 04-30-2022 End: 05-30-2022 ambulatory SHAIKH Shawna VÁZQUEZWAD Facility:H1 Start: 04-24-[address] Margareth Johnson acility: Start: 04-24-2022 Current tobacco non-user cad cap copd pv dm Shaikh Crystal Work Phone: [facility] [address] DO Work Phone: Start: 04-23-2022 End: 04-24-2022 ambulatory ROY Shawna CHIVOMeganWAD Facility:H1 Start: 04-16-2022 End: 04-17-2022 ambulatory SHAIKH Shawna VÁZQUEZWAD Facility:H1 Start: 04-09-2022 Follow-up encounter David Osei MD Work Phone: [facility] Start: 04-09-2022 ICD Remote F/U David fairbanks MD Work Phone: [facility] Start: 04-07-2022 Telephone encounter No PCP None - [facility] [address] DO Work Phone: Start: 03-30-2022 End: 04-29-2022 ambulatory SHAIKH Shawna NOD Facility:H1 Start: 03-24-[address] Nadir ellison [place] Facility: Start: 03-12-2022 Rx Renewal [facility] Work Phone: Start: 03-02-2022 End: 03-27-2022 ambulatory SHAIKH Shawna NOD Facility:H1 Start: 02-24-2022 Telephone encounter No PCP None - [facility] [address] DO Work Phone: Start: 02-18-2022 Rx Renewal No PCP None -[facility] [address] DO Work Phone: Start: 02-17-2022 Patient encounter procedure No PCP None [facility] [address] DO Work Phone: Start: 01-22-2022 Chart Update No PCP [facility] [address] [place] Work Phone: Start: 01-08-2022 Follow-up encounter David Osei MD Work Phone: [facility] Start: 01-08-2022 ICD Remote F/U David fairbanks MD Work Phone: [facility] Start: 01-07-2022 AUDIT No PCP None [facility] [address] DO Work Phone: Start: 12-31-2021 End: 12-31-2021 ambulatory Jeane Fitt Other [employer] Other Start: 12-31-2021 Telephone encounter Jeane Higuera [facility] Start: 12-26-2021 End: 12-26-2021 ambulatory Jeane Fitt Other [employer] Other Start: 12-26-2021 Telephone encounter Jeane Higuera [facility] Start: 12-23-2021 ([facility] R A/c) [facility] Repeat A/C Jeane Dykes [facility] Start: 12-23-2021 End: 12-23-2021 ambulatory Jeane Fitt Other [employer] Other Start: 12-17-2021 (Repeat ACH) Jeane Dykes [facility] Start: 12-17-2021 End: 12-17-2021 ambulatory Jeane Fitt Other [employer] Other Start: 12-17-2021 Telephone encounter Jeane Higuera [facility] Start: 12-12-2021 AUDIT No PCP None [facility] [address] DO Work Phone: Start: 12-11-2021 End: 12-11-2021 ambulatory Jeane Fitt Other [employer] Other Start: 12-11-2021 Telephone encounter Jeane Higuera [facility] Start: 12-10-2021 (Repeat ACH) Jeane Dykes [facility] Start: 12-10-2021 End: 12-10-2021 ambulatory Jeane Fitt Other [employer] Other Start: 12-05-2021 Current tobacco non-user cad cap copd pv dm No PCP None [facility] [address] DO Work Phone: Start: 11-26-2021 End: 11-26-2021 ambulatory Jeane Fitt Other [employer] Other Start: 11-26-2021 Telephone encounter Jeane Juan [facility] Start: 11-19-2021 (Repeat ACH) Jeane Juan [facility] Start: 11-19-2021 End: 11-19-2021 ambulatory Jeane Fitt Other [employer] Other Start: 11-19-2021 Telephone encounter Jeane Fitt [facility] Start: 11-18-2021 End: 11-18-2021 ambulatory Jeane Fitt Other [employer] Other Start: 11-18-2021 Telephone encounter Jeane Juan [facility] Start: 11-11-2021 ([facility] R A/c) [facility] Repeat A/C Jeane Juan F[facility] Start: 11-11-2021 End: 11-11-2021 ambulatory Jeane Fitt Other [employer] Other Start: 11-10-2021 End: 11-10-2021 ambulatory Jeane Fitt Other [employer] Other Start: 11-10-2021 Telephone encounter Jeane Juan [facility] [place] [facility] Start: 11-05-2021 (Repeat ACH) Jeane Fitt [facility] Start: 11-05-2021 End: 11-05-2021 ambulatory Jeane Fitt Other [employer] Other Start: 11-03-2021 End: 11-03-2021 ambulatory Jeane Fitt Other [employer] Other Start: 11-03-2021 Telephone encounter Jeane Fitt [facility] Start: 10-30-2021 End: 10-30-2021 ambulatory Jeane Fitt Other [employer] Other Start: 10-30-2021 Telephone encounter Jeanealfredo Dykes [facility] Start: 10-29-2021 (Repeat ACH) Jeane Dykes [facility] Start: 10-29-2021 End: 10-29-2021 ambulatory Jeane Fitt Other [employer] Other Start: 10-29-2021 Telephone encounter Jeane Dykes [facility] Start: 10-23-2021 (Repeat ACH) Jeane Dykes [facility] Start: 10-23-2021 End: 10-23-2021 ambulatory Jeane Fitt Other [employer] Other Start: 10-22-2021 Patient encounter procedure Nadir Hoskins DO Work Phone: [facility] [address] DO Work Phone: Start: 10-13-2021 Evaluation and management of inpatient DO Darian Smiley Work Phone: [facility] Start: 09-09-2021 End: 09-09-2021 ambulatory Jeane Fitt Other [employer] Other Start: 09-09-2021 Telephone encounter Jeane Dykes [facility] Start: 09-04-2021 ([facility] R A/c) [facility] Repeat A/C Jeane Dykes [facility] Start: 09-04-2021 End: 09-04-2021 ambulatory Jeane Fitt Other [employer] Other Start: 09-04-2021 Telephone encounter Jeane Dykes [facility] Start: 09-04-2021 Registered Recurring DO Joetomas campbell Baljit Work Phone: [facility] Start: 08-04-2021 End: 08-04-2021 ambulatory Jeane Dykes Other [employer] Other Start: 08-04-2021 Telephone encounter [facility] Start: 07-28-2021 Patient encounter procedure Nadir Hoskins DO Work Phone: -[facility] [address] DO Work Phone: Start: 07-17-2021 ([facility] R A/c) [facility] Repeat A/C Jeane Dykes [facility] Start: 07-17-2021 End: 07-17-2021 ambulatory Jaene Rogelt Other [employer] Other Start: 06-30-2021 ([facility] R A/c) [facility] Repeat A/C Jeane Dykes [facility] Start: 06-30-2021 End: 06-30-2021 ambulatory Jeanealfredo Rogelt Other [employer] Other Start: 06-20-2021 Telephone encounter [facility] Start: 06-09-2021 ([facility] R A/c) [facility] Repeat A/C Jeane Dykes [facility] Start: 11-23-2020 End: 11-25-2020 Evaluation and management of inpatient Darian Itzkowitz -[facility] Start: 09-17-2020 Registered Recurring Darian sullivan -[place] [facility] Start: 08-16-2020 End: 08-17-2020 Evaluation and management of inpatient Darian Itzkowitz -4 [facility] Start: 08-05-2020 Registered Recurring Darian sullivan -[place] [facility] Start: 07-26-2020 End: 07-26-2020 Emergency department patient visit Darian Smiley -Emergency Room Start: 07-22-2020 End: 07-22-2020 Emergency department patient visit Darian Baljit -Emergency Room Start: 07-19-2020 End: 07-19-2020 Emergency department patient visit Darian Baljit -Emergency Room Start: 06-15-2020 End: 06-15-2020 Evaluation and management of inpatient Darian Itzelisatz -4 [facility] Start: 06-05-2020 End: 06-07-2020 Evaluation and management of inpatient Darian Itzelisatz -[facility] Start: 11-08-2019 ambulatory UNKNOWN PROVIDER Facili ty:[facility] Start: 10-12-2018 End: 10-12-2018 Patient encounter procedure MARGARETH MAYRA Facility:[facility] Start: 10-07-2018 Patient encounter procedure JAMEEL VALENZUELA Facility:[id number] Start: 08-04-2018 End: 08-05-2018 Patient encounter procedure MARGARETH MAYRA Facility:[facility] Start: 08-02-2018 Patient encounter procedure AGUILA VASQUEZ Facility:[id number] Start: 06-27-2018 End: 07-01-2018 Evaluation and management of inpatient MARGARETH NUNEZ Facility:[facility] Start: 05-12-2018 End: 05-12-2018 Patient encounter procedure MARGARETH MAYRA Facility:[facility] Start: 11-29-2003 Evaluation and management of inpatient Darian Baljit -[facility] Patient encounter status No PCP None [facility] [address] DO Work Phone: Procedures Date Procedure Procedure Detail Performing Clinician Start: 09-03-2023 ELECTROPHYSIOLOGY PROCEDURE MARGARETH MAYRA Start: 09-02-2023 CARDIAC DEVICE CHECK - IN CLINIC MARGARETH QU AN Start: 09-02-2023 Prgrmg eval implantable in prsn dual lead dfb Margareth Nunez MD Work Phone: Start: 08-31-2023 History of coronary artery bypass grafting S/P CABG (coronary artery bypass graft) Ciara 2 Start: 07-25-2023 ICD REMOTE CHECK David Osei MD Work Phone: Start: 04-30-2023 ICD REMOTE CHECK David Osei MD Work Phone: Start: 04-17-2023 ICD REMOTE CHECK David Osei MD Work Phone: Start: 04-05-2023 ICD REMOTE CHECK David Osei MD Work Phone: Start: 04-05-2023 ICD REMOTE CHECK David Osei MD Work Phone: Start: 03-24-2023 ICD REMOTE CHECK David Osei MD Work Phone: Start: 03-20-2023 ICD REMOTE CHECK David Osei MD Work Phone: Start: 02-28-2023 ICD REMOTE CHECK David Osei MD Work Phone: Start: 02-25-2023 ICD REMOTE CHECK David Osei MD Work Phone: Start: 11-25-2022 ICD REMOTE CHECK David Osei MD Work Phone: Start: 08-17-2022 ICD REMOTE CHECK David Osei MD Work Phone: Start: 06-29-2022 ICD REMOTE CHECK David Osei MD Work Phone: Start: 05-28-2022 ICD REMOTE CHECK David Osei MD Work Phone: Start: 04-09-2022 ICD REMOTE CHECK David Osei MD Work Phone: Start: 01-08-2022 ICD REMOTE CHECK David Osei MD Work Phone: Start: 10-13-2021 End: 10-13-2021 Influenza A and B virus antigen assay DO Darian Itmary Work Phone: Start: 10-13-2021 CT of abdomen and pelvis without contrast DO Darian Itmary Work Phone: Start: 10-13-2021 Plain chest X-ray DO Darian Itmary Work Phone: Start: 11-25-2020 Esophagogastroduodenoscopy Darian dietz Start: 11-24-2020 End: 11-24-2020 Screening for occult blood in feces Anthony parth Baljit Start: 11-23-2020 Plain chest X-ray Darian Itmary Start: 11-23-2020 SARS Antigen (LFIA) Darian Itmary Start: 11-23-2020 Urine culture Darian Itmary Start: 08-17-2020 Lipid 1996 panel - Serum or Plasma David Osei MD Work Phone: Start: 08-16-2020 Plain chest X-ray Darian Itmary Start: 08-16-2020 Bacteria identified Cx Nom (U) Darian I steph Start: 08-16-2020 Respiratory Panel (PCR) Darian Itantonietat z Start: 07-26-2020 Plain chest X-ray Darian Itmary Start: 07-22-2020 Plain chest X-ray Darian Itmary Start: 07-22-2020 SARS Antigen (LFIA) Darian Itmary Start: 07-19-2020 Urine culture Darian Itmary Start: 07-19-2020 Plain chest X-ray Darian Itmary Start: 06-15-2020 Respiratory Panel (PCR) Darian Itantonietat z Start: 06-15-2020 Plain chest X-ray Darian Itmary Start: 06-04-2020 Plain chest X-ray Darian Itmary Start: 11-08-2019 extraction, erupted tooth or exposed root (elevation and/or forceps removal) UNKNOWN PROVIDER Start: 08-30-2011 Total colonoscopy Nadir Hoskins DO Work Phone: Adenoid excision Nadir Iman howard DO Work Phone: Appendectomy Nadir Rodríguezdon DO Work Phone: Catheter ablation of arrhythmogenic focus Nadir Rodríguezdon DO Work Phone: section No PCP None Cholecystectomy Nadir ricks DO Work Phone: Coronary artery bypass graft Nadir Rodríguezdon DO Work Phone: History of coronary artery bypass grafting S/P CABG (coronary artery bypass graft) Nadir Hoskins DO Work Phone: Hysterectomy Nadir Hoskins DO Work Phone: Operative procedure on knee Nadir Hoskins DO Work Phone: Percutaneous translu get coronary angioplasty Nadir Hoskins DO Work Phone: Replacement of mitral valve Nadir Hoskins DO Work Phone: Surgical procedure on thorax Nadir Hoskins DO Work Phone: Tonsillectomy Nadir fuentes DO Work Phone: Plan of Treatment Date Care Activity Detail Author Start: 2034 PNEUMOCOCCAL (3 - PP SV23 if available, else PCV20) PNEUMOCOCCAL (3 - PPSV23 if available, else PCV20) [facility] Start: 2034 PNEUMOCOCCAL (3 - PP SV23 or PCV20) PNEUMOCOCCAL (3 - PPSV23 or PCV20) [facility] Start: 2034 Pneumococcal vaccination [facility] Start: 2034 Pneumococcal Vaccine : Pediatrics (0 to 5 Years) and At-Risk Patients (6 to 64 Years) (3 - PPSV23 or PCV20) Pneumococcal Vaccine: Pediatrics (0 to 5 Years) and At-Risk Patients (6 to 64 Years) (3 - PPSV23 or PCV20) [facility] Start: 08-17-2025 Lipid 1996 panel - S daisy or Plasma Lipid Screening [facility] Start: 08-17-2025 LIPID SCREEN LIPID SCREEN [facility] Start: 08-30-2024 Cholesterol [Mass/vo lume] in Serum or Plasma Cholesterol [facility] Start: 03-19-2024 DIABETES SCREEN DIABETES SCREEN [facility] Start: 03-19-2024 Diabetes Screening Diabetes Screenin g [facility] Start: 09-29-2023 End: 09-29-2023 Admission to same day surgery center 09/29/2023 2:00 PM EST - 09/29/2023 4:00 PM EST Surgery [facility] [address] [place] [address] Margareth Nunez MD [address] [facility] [address] [place] [address] ICD BIV Generator Change Out [87179 (CPT )] [facility] Comment on above: ICD BIV Generator Ch cecily Out [84091 (CPT )] Start: 09-29-2023 Subsequent hospital visit by physician 09/29/2023 2:00 PM EST Hospital Encounter [facility] [address] [place] [address] Margareth Nunez MD [address] [facility] Office [address], [address] [place] [address] Biventricular implantable cardioverter-defibrilla tor (ICD) in situ; Elective replacement of implantable cardioverter-defibrilla tor (ICD) battery required [facility] Comment on above: Biventricular implan table cardioverter-defibrillator (ICD) in situ; Elective replacement of implantable cardioverter-defibrillator (ICD) battery required Start: 09-09-2023 End: 12-09-2023 Basic metabolic 2000 panel - Serum or Plasma BASIC METABOLIC PNL Lab Routine Persistent atrial fibrillation (HCC) Expected: 09/09/2023 (Approximate), Expires: 12/09/2023 [facility] Work Phone: Comment on above: Expected: 09/09/2023 (Approximate), Expires: 12/09/2023 Start: 09-09-2023 End: 12-09-2023 CBC panel - Blood by Automated count CBC Lab Routine Persistent atrial fibrillation (HCC) Expected: 09/09/2023 (Approximate), Expires: 12/09/2023 [facility] Work Phone: Comment on above: Expected: 09/09/2023 (Approximate), Expires: 12/09/2023 Start: 09-09-2023 End: 12-09-2023 CONFIRM BLOOD TYPE CONFIRM BLOOD TYPE Blood Bank Routine Persistent atrial fibrillation (HCC) Expected: 09/09/2023 (Approximate), Expires: 12/09/2023 [facility] Work Phone: Comment on above: Expected: 09/09/2023 (Approximate), Expires: 12/09/2023 Start: 09-09-2023 End: 12-09-2023 TYPE AND SCREEN,30 DAY TYPE AND SCREEN,30 DAY Blood Bank Routine Persistent atrial fibrillation (HCC) Expected: 09/09/2023 (Approximate), Expires: 12/09/2023 [facility] Work Phone: Comment on above: Expected: 09/09/2023 (Approximate), Expires: 12/09/2023 Start: 04-30-2023 Covid-19 Vaccine ( season) Covid-19 Vaccine () [facility] Start: 04-30-2023 Influenza vaccination C [facility] Start: 03-15-2023 FUV, Provider: Margareth Nunez, Status: Pen, Time: 1:40 PM FUV, Provider: Margareth Nunez, Status: Pen, Time: 1:40 PM -[facility] 250 DO Work Phone: Start: 11-14-2022 Echocardiography Echocardiogram [facility] Start: 10-27-2022 FUV, Provider: Margareth Nunez, Status: Pen, Time: 3:00 PM FUV, Provider: Margareth Nunez, Status: Pen, Time: 3:00 PM -[facility] 320 DO Work Phone: Start: 05-30-2022 Influenza vaccination Influenza Vacc ine (#1) [facility] Start: 05-25-2022 FUV, Provider: Inna Jesus, Status: Pen, Time: 1:30 PM FUV, Provider: Inna Jesus, Status: Pen, Time: 1:30 PM -[facility] 250 DO Work Phone: Start: 05-20-2022 BP CONTROLLED (<130/80) BP CONTROLLE D (<130/80) [facility] Start: 04-30-2022 Influenza vaccination C [facility] Start: 04-24-2022 FUV, Provider: Margareth Nunez, Status: Pen, Time: 1:20 PM FUV, Provider: Margareth Nunez, Status: Pen, Time: 1:20 PM [facility] [address] [place] Work Phone: Start: 04-15-2022 FUV, Provider: Inna Jesus, Status: Pen, Time: 4:00 PM FUV, Provider: Inna Jesus, Status: Pen, Time: 4:00 PM [facility] Heart-[place] 250 DO Work Phone: Start: 03-25-2022 FUV, Provider: Inna Jesus, Status: Pen, Time: 8:00 AM FUV, Provider: Inna Jesus, Status: Pen, Time: 8:00 AM -[facility] 250 DO Work Phone: Start: 03-12-2022 Diabetes mellitus screening Diabetes Screening [facility] Start: 02-23-2022 FUV, Provider: Inna Jesus, Status: Pen, Time: 8:00 AM FUV, Provider: Inna Jesus, Status: Pen, Time: 8:00 AM [facility] 250 DO Work Phone: Start: 01-21-2022 [facility], Provider: Margareth Nunez, Status: Pen, Time: 9:00 AM [facility], Provider: Margareth Nunez, Status: Pen, Time: 9:00 AM [facility] 320 DO Work Phone: Start: 01-20-2022 [facility], Provider: Soco Bhardwaj, Status: Pen, Time: 8:00 AM [facility], Provider: Soco Bhardwaj, Status: Pen, Time: 8:00 AM [facility] 320 DO Work Phone: Start: 12-31-2021 EP ABLAT, Provider: [facility] ANALYSIS TESTER 5,[id number], Status: Pen, Time: 11:00 AM EP ABLAT, Provider: [facility] ANALYSIS TESTER 5,[id number], Status: Pen, Time: 11:00 AM -[facility] 320 DO Work Phone: Start: 12-31-2021 [facility], Provider: Soco Bhardwaj, Status: Pen, Time: 11:00 AM [facility], Provider: Soco Bhardwaj, Status: Pen, Time: 11:00 AM [facility] 320 DO Work Phone: Start: 12-31-2021 [facility], Provider: Margareth Nunez, Status: Pen, Time: 8:00 AM [facility], Provider: Margareth Nunez, Status: Pen, Time: 8:00 AM [facility] 320 DO Work Phone: Start: 12-31-2021 JOVITA, Provider: [facility] C ATH LAB 1,[id number], Status: Pen, Time: 8:00 AM JOVITA, Provider: [facility] ANALYSIS TESTER 1,[id number], Status: Pen, Time: 8:00 AM [facility] 320 DO Work Phone: Start: 11-19-2021 FUV, Provider: Nadir Hoskins, Status: Pen, Time: 9:20 AM FUV, Provider: Nadir Hoskins, Status: Pen, Time: 9:20 AM [facility] 250 DO Work Phone: Start: 10-29-2021 FUV, Provider: Inna Jesus, Status: Pen, Time: 2:30 PM FUV, Provider: Inna Jesus, Status: Pen, Time: 2:30 PM [facility] 250 DO Work Phone: Start: 10-13-2021 Bacteria identified in Blood by Culture Blood Culture [facility] Start: 10-13-2021 Bacteria identified in Urine by Culture Urine Culture [facility] Start: 08-17-2021 Hepatitis B surface antibody level LDL CHOLESTEROL [facility] Start: 05-11-2021 COVID-19 VACCINE (3 - Booster for Pfizer series) COVID-19 VACCINE (3 - Booster for Pfizer series) [facility] Start: 02-03-2021 COVID-19 VACCINE (3 - Booster for Pfizer series) COVID-19 VACCINE (3 - Booster for Pfizer series) [facility] Start: 02-03-2021 COVID-19 VACCINE (3 - Pfizer series) COVID-19 VACCINE (3 - Pfizer series) [facility] Start: 2019 Measurement of occul t blood in single stool specimen FIT [facility] Start: 2019 Screening for malign ant neoplasm of colon CRC Screening [facility] Start: 2019 Shingles (RZV) Vacci ne (1 of 2) Shingles (RZV) Vaccine (1 of 2) [facility] Start: 2019 SHINGRIX VACCINE (1 of 2) DEL CID GRIX VACCINE (1 of 2) [facility] Start: 2019 Zoster Vaccines (1 of 2) Zoste r Vaccines (1 of 2) [facility] Start: 2014 COLOGUARD (FIT-DNA) COLOGUARD (FIT-D NA) [facility] Start: 2014 Colonoscopy COLONOSCOPY [facility] Start: 2014 COLORECTAL CANCER SCREENING COLORECTAL CANCER SCREENING [facility] Start: [address] COLONOGRAPHY [facility] Start: 2014 FECAL OCCULT BLOOD FECAL OCCULT BLOO D [facility] Start: 2014 SIGMOIDOSCOPY SIGMOIDOSCOPY [facility] Start: 02-06-2013 DTaP/Tdap/Td Vaccine s (1 - Tdap) DTaP/Tdap/Td Vaccines (1 - Tdap) [facility] Start: 02-06-2013 Urine microalbumin profile [facility] Start: 2009 Mammography [facility] Start: 2009 Screening for malign ant neoplasm of breast [facility] Start: 1999 HPV TESTING HPV TESTING [facility] Start: 1990 PAP TESTING PAP TESTING [facility] Start: 1990 Screening for malign ant neoplasm of cervix [facility] Start: 1987 ANNUAL PCP TEAM MANAGER DATA C[facility] [place] DISEASE VISIT ANNUAL PCP TEAM CHRONIC DISEASE VISIT [facility] Start: 1987 BP CONTROLLED (<130/80) BP CONTROLLE D (<130/80) [facility] Start: 1987 HEPATITIS C SCREENING HEPATITIS C SC REENING [facility] Start: 1987 [facility] Start: 1987 HIV SCREENING HIV SCREENING [facility] Start: 1987 SPIROMETRY SPIROMETRY [facility] Start: 1987 Tetanus + diphtheria + acellular pertussis vaccine (product) Tdap Booster [facility] Start: 1984 HIV screening HIV Test [facility] Start: 1970 MMR Vaccines (1 of 1 - Standard series) MMR Vaccines (1 of 1 - Standard series) [facility] Start: 1969 Creatinine measurement Creatinine Le mahi [facility] Start: 1969 Ejection Fraction Ejection Fraction [facility] Start: 1969 HEPATITIS B (1 of 3 - 3-dose series) HEPATITIS B (1 of 3 - 3-dose series) [facility] Start: 1969 Hepatitis B Vaccine (1 of 3 - 3-dose series) Hepatitis B Vaccine (1 of 3 - 3-dose series) [facility] Start: 1969 Hepatitis B Vaccines (1 of 3 - 3-dose series) Hepatitis B Vaccines (1 of 3 - 3-dose series) [facility] Start: 1969 HIV screening HIV Screening [facility] Start: 1969 Lipid panel Lipid Panel [facility] Start: 1969 Medicare Annual Well ness Visit Medicare Annual Wellness Visit (AWV) [facility] Start: 1969 Potassium measurement Potassium Leve l [facility] Start: 1969 Screening for malign ant neoplasm [facility] Start: 1969 Thyroid stimulating hormone measurement TSH Level [facility] aPTT in Platelet poo r plasma by Coagulation assay [facility] Bacteria identified in Blood by Culture [facility] Bacteria identified in Urine by Culture [facility] Basophil count [facility] Basophil percent differential count [facility] Calcium [Mass/volume ] in Serum or Plasma [facility] Carbon dioxide, tota l [Moles/volume] in Serum or Plasma [facility] Cardiac Device Check - In Clinic Cardiac Device Check - In Clinic Implantable Cardiac Device Routine ICD (implantable cardioverter-defibrilla tor) battery depletion 09/02/2023 1:53 PM EST [facility] Work Phone: Chloride [Moles/volu me] in Serum or Plasma [facility] Creatinine and Glome rular filtration rate.predicted panel - Serum, Plasma or Blood [facility] Eosinophil percent differential count [facility] Eosinophils [#/volum e] in Blood [facility] Erythrocyte mean corpuscular volume determination [facility] Erythrocytes [#/volu me] in Blood [facility] Glucose [Mass/volume ] in Serum or Plasma [facility] Hematocrit [Volume Fraction] of Blood [facility] Hemoglobin [Mass/vol ume] in Blood [facility] Hemoglobin distribut ion, width determination [facility] ICD BIV GENERATOR CH CECILY OUT ICD BIV GENERATOR CHANGE OUT Biventricular implantable cardioverter-defibrilla tor (ICD) in situ Elective replacement of implantable cardioverter-defibrilla tor (ICD) battery required [facility] Work Phone: INR in Platelet poor plasma by Coagulation assay [facility] Leukocytes [#/volume ] in Blood [facility] Lymphocyte count [facility] Lymphocyte percent differential count [facility] Magnesium measurement [facility] Mean corpuscular hemoglobin concentration determination [facility] Mean corpuscular hemoglobin determination [facility] Measurement of renal function [facility] Monocyte count [facility] Monocyte percent differential count [facility] Neutrophil count [facility] Neutrophil percent differential count [facility] Patient Education [facility] Patient referral [facility] Platelet mean volume determination [facility] Platelets [#/volume] in Blood [facility] Potassium [Moles/vol ume] in Serum or Plasma [facility] End: 09-07-2024 Radiologic exam chest 2 views XR CHEST 2V FRONTAL/LAT Radiology Routine Persistent atrial fibrillation (HCC) 1 Occurrences starting 08/09/2023 until 09/07/2024 [facility] Work Phone: Comment on above: 1 Occurrences starti ng 08/09/2023 until 09/07/2024 Sodium [Moles/volume ] in Serum or Plasma [facility] Urea nitrogen [Mass/volume] in Serum or Plasma [facility] Immunizations Immunization Date Immunization Notes Care Provider Chivo bailey 12-09-2020 Pfizer-BioNTech COVID-19 Vacc 30 MCG/0.3ML Intramuscular Suspension Nadir Hoskins DO Work Phone: [facility] 11-18-2020 COVID-19 vaccine, ag e 12+ yr (PFIZER-BIONTECH - PURPLE TOP) David Osei MD Work Phone: [facility] 06-09-2020 pneumococcal polysaccharide vaccine, 23 valent David Osei MD Work Phone: [facility] 06-07-2020 influenza, seasonal, injectable David Osei MD Work Phone: [facility] 06-07-2020 influenza virus vaccine, unspecified formulation David Osei MD Work Phone: [facility] 06-06-2020 influenza, injectabl e, quadrivalent, preservative free Darian Baljit [facility] 06-06-2020 influenza virus vaccine, unspecified formulation Anju Cuevas PAUL Work Phone: [facility] 08-31-2019 Influenza, injectabl e, Madin [place] Canine Kidney, preservative free, quadrivalent Darian Baljit [facility] 08-30-2019 influenza virus vaccine, unspecified formulation Nadir Hoskins DO Work Phone: [facility] 250 DO Work Phone: 06-29-2018 influenza, injectabl e, quadrivalent, preservative free David Osei MD Work Phone: [facility] 06-27-2018 influenza virus vaccine, unspecified formulation Nadir Hoskins DO Work Phone: [facility] 250 DO Work Phone: 06-17-2018 influenza, injectabl e, quadrivalent, preservative free Jeane Dykes Other [facility] 05-10-2017 influenza, seasonal, injectable, preservative free David Osei MD Work Phone: [facility] 05-03-2017 influenza, injectabl e, quadrivalent, preservative free David Osei MD Work Phone: [facility] 04-30-2017 influenza virus vaccine, unspecified formulation Nadir Gato DO Work Phone: [facility] Madeleine [facility] 250 DO Work Phone: 05-08-2016 pneumococcal conjuga te vaccine, 13 valent David Osei MD Work Phone: [facility] 04-30-2016 influenza virus vaccine, unspecified formulation [facility]ir Hoskins DO [facility] Work Phone: 04-30-2016 pneumococcal conjuga te vaccine, 7 valent Nadir Hoskins DO [facility] Work Phone: 04-24-2016 influenza, seasonal, injectable, preservative free David Osei MD Work Phone: [facility] 05-30-2015 influenza virus vaccine, unspecified formulation [facility] Gato DO [facility] Work Phone: 09-18-2013 influenza virus vaccine, unspecified formulation Nadir Gato DO [facility] Phone: [facility] Work Phone: 02-05-2013 TD(adult) unspecifie d formulation David Osei MD Work Phone: [facility] 08-30-2011 pneumococcal polysaccharide vaccine, 23 valent Nadir Hoskins DO [facility] Phone[facility] Work Phone: influenza virus vaccine, unspecified formulation Nadir Hoskins DO Work Phone: [facility] Work Phone: Comment on above: 2008 2009 2010 2011 2012 pneumococcal polysaccharide vaccine, 23 valent Nadir Hoskins DO Work Phone: -[facility] Kimberly-Nick Downey DO Work Phone: Comment on above: 2008 Payers Date Payer Category Payer Private Health Insurance UNITED [facility] DUAL COMPLETE [facility] DUAL COMPLETE [id number] 2023-Present [address] [address] [place] [address] [id number] 2023 Self-pay [id number] 2020 Medicare [facility] MEDICARE [facility] DUAL COMPLETE HMO SNP [id number] 2020-Present [phone] [address] [place] [address] Medicare [id number] 2020 Medicare [id number]. [id number] 2020 [place] [id number] 2020-Present [phone] [address] [place] [address] Medicaid [id number] 2017 Private Health Insurance [id number] 2017 Unknown [id number] 2003 Medicaid [id number]. [id number]. [id number] 1969 Unknown [id number] 2.16.840.1.965242.3.579.2. 355 1969 Unknown [id number] 2.16.840.1.912222.3.579.2. 355 1969 Unknown [id number] 2.16.840.1.900958.3.579.2. 355 1969 Unknown [id number] 2.16.840.1.725131.3.579.2. 355 1969 Unknown [id number] 2.16.840.1.473512.3.579.2. 355 1969 Unknown [id number] 2.16.840.1.249544.3.579.2. 355 1969 Unknown [id number] 2.16.840.1.317566.3.579.2. 732 1969 Unknown [id number] 2.16.840.1.706624.3.579.2. 593 1969 Unknown [id number] 2.16.840.1.517814.3.579.2. 593 1969 Unknown [id number] 2.16.840.1.352009.3.579.2. 593 1969 Unknown [id number] 2.16.840.1.213481.3.579.2. 593 1969 Unknown [id number] 2.16.840.1.500363.3.579.2. 593 1969 Unknown [id number] 2.16.840.1.961559.3.579.2. 593 1969 Unknown [id number] 2.16.840.1.241560.3.579.2. 593 1969 Unknown [id number] 2.16.840.1.059154.3.579.2. 593 1969 Unknown [id number] 2.16.840.1.058466.3.579.2. 593 1969 Unknown [id number] 2.16.840.1.350798.3.579.2. 593 1969 Unknown [id number] 2.16.840.1.618985.3.579.2. 593 1969 Unknown [id number] 2.16.840.1.967389.3.579.2. 593 1969 Unknown [id number] 2.16.840.1.910344.3.579.2. 593 1969 Unknown [id number] 2.16.840.1.892693.3.579.2. 593 1969 Unknown [id number] 2.16.840.1.966206.3.579.2. 593 1969 Unknown [id number] 2.16.840.1.554106.3.579.2. 593 1969 Unknown [id number] 2.16.840.1.867005.3.579.2. 593 1969 Unknown [id number] 2.16.840.1.023970.3.579.2. 356 1969 Unknown [id number] 2.16.840.1.541692.3.579.2. 356 1969 Unknown [id number] 2.16.840.1.161776.3.579.2. 356 1969 Unknown [id number] 2.16.840.1.992760.3.579.2. 356 1969 Unknown [id number] 2.16.840.1.971906.3.579.2. 727 1969 Unknown [id number] 2.16.840.1.158205.3.579.2. 727 1969 Unknown [id number] 2.16.840.1.012409.3.579.2. 727 1969 Unknown [id number] 2.16.840.1.315607.3.579.2. 1246 1969 Unknown [id number] 2.16.840.1.492468.3.579.2. 1246 1959 Medicaid [id number] Medicare [id number] Medicare [id number] Unknown [id number] Unknown Unknown [id number] 2.16.840.1.890860.3.579.2. 531 Social History Date Type Detail Facility Start: 08-16-2020 End: 08-31-2023 Tobacco smoking status NHIS Ex-smoker (finding) [facility] Start: 1970 [facility] Start: 05-20-2021 End: 09-02-2023 No illicit drug use No illicit drug use [facility] Work Phone: Comment on above: QUIT 02/2018; QUIT 02/2018 had res tarted then requit 08/2021; Start: 09-21-2019 End: 05-20-2021 Tobacco smoking status NHIS Smokes tobacco daily [facility] End: 08-30-2021 History of tobacco use Cigarette Smoker [facility] Start: 05-20-2021 End: 08-31-2023 Tobacco use and exposure Smokeless tobacco non-user [facility] Start: 05-20-2021 Alcohol intake Ex-drinker (finding) [facility] Start: 06-17-2020 History SDOH Financial 5 [facility] Start: 06-17-2020 History SDOH Food Worry 1 [facility] Start: 06-17-2020 History SDOH Transpo rt Med 2 [facility] Start: 02-24-2012 Tobacco Comment 5 cigarettes a day [facility] Start: 1970 Sex Assigned At Not on file C [facility] Start: 12-28-2021 End: 01-07-2022 Exposure to SARS-CoV-2 (event) Unable to assess [facility] Start: 05-20-2021 End: 09-02-2023 Sex Assigned At [facility] Work Phone: Start: 10-13-2021 End: 08-30-2021 Tobacco smoking status NHIS Smoker (finding) [facility] Start: 10-13-2021 Alcohol intake Current non-dr silver solution mixer of alcohol (finding) [facility] How hard is it for y ou to pay for the very basics like food, housing, medical care, and heating Not hard at all [facility] Work Phone: (I/We) worried gissell er (my/our) food would run out before (I/we) got money to buy more. Never true [facility] Work Phone: Start: 09-02-2023 Alcohol intake Current drinke r of alcohol (finding) [facility] Work Phone: Start: 08-31-2023 Alcohol Comment rare [facility] Work Phone: Start: 08-23-2023 End: 09-02-2023 Exposure to SARS-CoV-2 (event) Not sure [facility] Medical Equipment Procedure Code Equipment Code Equipment Origin al Text Equipment Identifier Dates Dupree Ptfe 1.2 Cm X 10 Cm - [id number] Start: 07-13-2012 Comment on above: Description: pledgets for suture line re inforcement Valve 27mm Therm afix Pericardi - [id number] Start: 07-13-2012 Comment on above: Description: Mitral valve replacement wi th 27 mm Cornell Lang tissue valve Valve Orquidea 3 Commander Lang 26mm Aortic Transcatheter Ultra Low - [id number] Start: 03-17-2021 Goals Date Patient Goal Desired Activity /State Functional Status Date Assessment Result Facility 11-25-2020 Functional status Patient at Baseline [facility] 11-23-2020 Functional status Patient at Baseline [facility] 08-17-2020 Functional status Patient at Baseline [facility] 08-17-2020 Functional status Disability Sta tus Patient at Baseline [facility] 06-15-2020 Functional status Patient at Baseline [facility] 06-05-2020 Functional status Patient at Baseline [facility] Mental Status Date Assessment Result Facility 11-25-2020 Cognitive function Cognitive Sta tus Patient at Baseline [facility] 11-23-2020 Cognitive function Cognitive Sta tus Patient at Baseline [facility] 08-17-2020 Cognitive function Cognitive Sta tus Patient at Baseline [facility] 06-15-2020 Cognitive function Cognitive Sta tus Patient at Baseline [facility] 06-05-2020 Cognitive function Cognitive Sta tus Patient at Baseline [facility] Clinical Notes 10-17-2020 to 08-31-2023 Note Date & Type Note Facility 08-31-2023 Evaluation note Encounter Date Diagnosis Assessment Notes Aug, Generalized anxiety disorder (ICD-10 - F41.1) [employer] Other 11-29-2023 Miscellaneous Notes* Telephone Encounter - Maria Glover RN - 07/28/2023 11:50 AM EST 07/28/23, 11:50 am: Patient's ICD has reached recommended replacement time and needs generator change out. Dr. Osei updated. Attempted to call patient and all emergency contacts, no answer with allnumbers. Left voicemail with patient's daughter Lizz. 07/28/23 1:00 pm: Patient's daughter returned call, states she has little to no contact with Essenceand does not know her updated phone number or address. Called number for Randolph (listed as spouse) that was found in recent OP visit in [facility] note, left voicemail. [facility] NotePROCEDURE: XR HUMERUS RT MIN 2 V, XR ELBOW RT MIN 3 VIEWS HISTORY: Pain ; fractured 2 weeks ago COMPARISON: XR shoulder right 01/03/2023 FINDINGS: BONES:Mildly displaced humeral neck and greater tuberosity fractures with mild callus formation at the margins. SOFT TISSUES:No visible soft tissue swelling. EFFUSION:None visible. OTHER: Cardiac pacer, valve replacement, and prior sternotomy. IMPRESSION: 1. Nondisplaced right humeral neck and greater tuberosity fractures with early callus formation; not appreciably changed in overall displacement. 2. No acute fracture of the right shoulder or elbow. Electronically authenticated by: JC BRAVO Date: 2023-01-27 11:03[facility]05-31-2023 NotePROCEDURE: XR HUMERUS RT MIN 2 V, XR ELBOW RT MIN 3 VIEWS HISTORY: Pain ; fractured 2 weeks ago COMPARISON: XR shoulder right 01/03/2023 FINDINGS: BONES:Mildly displaced humeral neck and greater tuberosity fractures with mild callus formation at the margins. SOFT TISSUES:No visible soft tissue swelling. EFFUSION:None visible. OTHER: Cardiac pacer, valve replacement, and prior sternotomy. IMPRESSION: 1. Nondisplaced right humeral neck and greater tuberosity fractures with early callus formation; not appreciably changed in overall displacement. 2. No acute fracture of the right shoulder or elbow. Electronically authenticated by: JC BRAVO Date: 2023-01-27 11:03[facility]05-25-2022 NotePre-procedure Verification and Time Out: Pre-Procedure Verification and Time Out: Procedure Locationprocedure area HUDDLE - Pre-procedure Verificationcompleted TIME OUT - Final Verificationcompleted immediately prior to procedure start DEBRIEFcompleted General Information: Anesthesia Critical Care: Non-Anesthesia Date/Time of Procedure: 21-Jan-2022 Post-Procedure Diagnosis: PSVT, atrial flutter, atrial tachycardia Procedure Name: ablation atrial flutter, EP study with CS, NIPS ATP by ICD, pre and post ICD analysis and reprogramming, 3D mapping, Vascular ultrasound x 3 for vascular access Findings: grossly normal anatomy Procedure performed by: vt National Insurance Officer(s): none Estimated Blood Loss (mL): none Specimen: no Indication(s): PSVT, atrial flutter, atrial tachycardia Informed Consent: written consent obtained Procedure Details: Procedure Details: Electrophysiology Study With Ablation of Atrial flutter Summary: Abnormal AV bhavna function. Normal His-Purkinje conduction. No VA conduction Ablation across cavo tricuspid annulus to produce a continuous line of RF lesions No atrial flutter induced after ablation. Successful ablation to prevent atrial flutter. Multiple atrial tachycardias with CL 300 ms, 400 ms, and 510 ms noted. The atrial tachycardia with CL 510 ms had no early sites on the right sided map, and could not be entrained from RA pacing. This tachycardia likely arose from the left atrium. The atrial tachycardias with CL 300 ms and 400 ms were nonsustained and not mapped further. Discharge: 1.The patient left the EP laboratory in stable condition. Follow up: 1.The patient will remain in the hospital for telemetry monitoring and observation, with anticipated discharge on the same day. The patient should be alert for bleeding, swelling, or signs of infection. The patient should call the summer counselor immediately if symptoms recur, or for any problems. The patient and friend (Darian via telephone with HIPAA consent) have been instructed accordingly. Procedures: Electrophysiologic testing. HIS Recording. CS recording, 3D mapping. Ablation performed. Femoral ultrasound guided vascular access x 3. NIPS ATP by ICD. Pre and post ICD analysis and reprogramming. Patient history: Please refer to the detailed history and physical on the patient's medical chart. Diagnosis PSVT, atrial flutter, atrial tachycardia Procedure narrative: The risks, benefits, and alternatives to the procedure and sedation were explained to the patient, and informed consent was obtained. The patient was in the fasting state. A baseline ECG was recorded. RF grounding pads were placed. Self-adhesive anterior-posterior defibrillation pads were applied. A [employer] defibrillator was used for monitoring and the defibrillator waveform was set to biphasic. The patient was set up for continuous monitoring of surface 12 lead ECG and pulse oximetry. Blood pressure was monitored with automatic cuff measurements. The procedure was performed under IV conscious sedation supplemented with intermittent moderate sedation. Bilateral groins were clipped, prepped with chlorhexidine, and draped in the usual sterile fashion. Local anesthesia: Subcutaneous tissues were infiltrated with Lidocaine 1 % ( 20 ml) to the right groin for local anesthesia. 1.The ICD was analyzed and reprogrammed to AAI. Since office visit, the patient has multiple atrial tachycardias noted. CL 300, 400 ms, and 510 ms. The clinical arrhythmia atrial flutter was noted by egms also. Vascular ultrasound guided femoral access x 3 was obtained. The right femoral vein was accessed x 3 using the modified Seldinger technique. Three sheaths were inserted. 2.Electrophysiologic testing was performed with a multiple catheter technique. The catheters were placed under fluoroscopic guidance. A catheter was placed across the tricuspid valve to record the His bundle. A catheter was placed in the coronary sinus. Testing was done at baseline. Measurements of basic intervals and refractory periods were obtained. Protocols included decremental pacing, burst pacing, and programmed stimulation. Stimuli were delivered at right atrial, high right atrial, low lateral right atrial, coronary sinus, and ventricular sites. 3.The superior vena cava, tricuspid annulus, triangle of Jaime, right atrial, and right interatrial septum sites were mapped with [id number] electroanatomical activation mapping and entrainment mapping from both the right atrial catheter and the ablation catheter. An [employer] mapping system was used to create a 3D image of the right atrium and cavotricuspid isthmus. Mapping was performed during sinus rhythm and atrial pacing. 4. Catheter RF ablation. Applications were delivered via a generator to (more content not included)...[facility]05-25-2022 NoteHistory of Present Illness: /Lactating: Are You no (1) Are You Currently Breastfeedingno (1) History Present Illness: Reason for surgery: atrial flutter, ablation HPI: She has recurrent atrial flutter. She is here for ablation. Past Medical History: Medical History: Thrombus of left atrial appendage: History of ischemic cardiomyopathy: Migraines: Coronary artery disease: Chronic systolic heart failure: Ventricular tachycardia (paroxysmal): Valvular heart disease: Hyperlipidemia: Benign essential hypertension: H/O ST elevation myocardial infarction: Cardiogenic shock: Atrial flutter: Surg History: History of radiofrequency ablation (RFA) procedure for cardiac arrhythmia: History of knee surgery: S/P tonsillectomy and adenoidectomy: History of hysterectomy: S/P MVR (mitral valve repair): Status post aortic valve replacement: S/P CABG (coronary artery bypass graft): Allergies: Allergies: Chantix: Unknown erythromycin: Unknown fentanyl: Other Levaquin: Other Zofran: Other Tape - Adhesive, Bandaids, Paper: Other Home Medication Review: Home Medications Reviewed: yes Impression/Procedure: Impression and Planned Procedure: Atrial flutter, ablation ERAS (Enhanced Recovery After Surgery): ERAS Patient: no Review of Systems: Review of Systems: Constitutional: NEGATIVE: Fever, Chills, Anorexia, Weight Loss, Malaise Eyes: NEGATIVE: Blurry Vision Respiratory: NEGATIVE: Dry Cough, Productive Cough Cardiac: POSITIVE: Palpitations; NEGATIVE: Chest Pain, Dyspnea on Exertion, Orthopnea, Syncope Gastrointestinal: NEGATIVE: Nausea, Vomiting, Diarrhea Neurological: NEGATIVE: Dizziness, Syncope All Other Systems: All other systems reviewed and are negative Physical Exam by System: Constitutional: Well developed, awake/alert/oriented x3, no distress, alert and cooperative Eyes: EOMI, clear sclera ENMT: mucous membranes moist, no apparent injury, no lesions seen Head/Neck: Neck supple, no thyromegaly, No JVD, trachea midline Respiratory/Thorax: Patent airways, CTA bilaterally, no wheezing, normal breath sounds with good chest expansion, thorax symmetric Cardiovascular: Laterally displaced PMI, regular, rate and rhythm, , normal S 1and S 2, no murmurs, 2+ equal pulses radial, brachial, DP pulses Gastrointestinal: Nondistended, BS +, no bruits, soft, non-tender, no guarding, no masses palpable, no organomegaly Genitourinary: deferred Musculoskeletal: ROM intact, no joint swelling, normal strength Extremities: normal extremities; no cyanosis, edema, or contusions, no clubbing Neurological: alert and oriented x3, intact senses, motor normal strength; normal gait Breast: deferred Lymphatic: No cervical lymphadenopathy Psychological: Appropriate mood and behavior Skin: Warm and dry, no lesions, no rashes; normal right sided pocket Airway/Sedation Assessment: Emotional Statuscalm Neurologicalert & oriented x 3 Respiratoryclear to auscultation Cardiovascularrhythm & rate regular GI/GUsoft, nontender Pulsespresent: Pedal Left, Pedal Right, Radial Left, Radial Right Mouth Opening OKyes Neck Flexibility OKyes Loose Teethno Oropharyngeal ClassificationClass II ASA PS ClassificationASA III Sedation Planmoderate sedation Consent: COVID-19 Consent: COVID-19 Risk ConsentSurgeon has reviewed hardwick risks related to the risk of haley COVID-19 and if they contract COVID-19 what the risks are. Electronic Signatures: Margareth Nunez) (Signed 21-Jan-2022 15:33) Authored: History of Present Illness, Past Medical History, Allergies, Home Medication Review, Impression/Procedure, ERAS, Review of Systems, Physical Exam, Consent, Note Completion Last Updated: 21-Jan-2022 15:33 by Margareth Nunez) References: 1. Data Referenced From History and Physical - Surgical Update < 30 days 21-Jan-2022 12:47[facility]05-25-2022 NoteElectrophysiology Procedure TestingPlease click on the link to view the study images (Normal)- [facility] [place] Work Phone: 1(737) 510-798305-25-2022 NoteElectrophysiology Procedure Testing Please click on the link to view the study images (Normal)-[facility] [address] [place] Work Phone: 1(974) [phone] NoteHistory & Physical Reviewed: /Lactating: Are You no (1) Are You Currently Breastfeedingno (1) I have reviewed the History and Physical dated: 21-Jan-2022 History and Physical reviewed and relevant findings noted. Patient examined to review pertinent physical findings.: No significant changes Home Medications Reviewed: no changes noted Allergies Reviewed: no changes noted Airway/Sedation Assessment: Mouth Opening OKyes Neck Flexibility OKyes Loose Teethno Oropharyngeal ClassificationClass I ASA PS ClassificationASA II Sedation Planmoderate sedation ERAS (Enhanced Recovery After Surgery): ERAS Patient: no Consent: COVID-19 Consent: COVID-19 Risk ConsentSurgeon has reviewed hardwick risks related to the risk of haley COVID-19 and if they contract COVID-19 what the risks are. Electronic Signatures: Soco Bhardwaj) (Signed 21-Jan-2022 12:49) Authored: History & Physical Reviewed, Airway/Sedation, ERAS, Consent, Note Completion Last Updated: 21-Jan-2022 12:49 by Soco Bhardwaj) References: 1. Data Referenced From Patient Profile - Preop v3 21-Jan-2022 10:28[facility]05-25-2022 NoteHistory of Present Illness: Admission Reason: Atrial Flutter/Atrial Tachycardia HPI: ESSENCE VINCENT is a 51 year old female with complicated past medical history including myocardial infarction, cardiogenic shock, status post PCI of the circumflex and intra-aortic balloon pump placement, persistent severe LV dysfunction, chronic systolic heart failure, status post remote biventricular ICD with a [employer] device, severe MR, status post mitral valve repair, recurrent VT and atrial arrhythmias, status post multiple ablations as well as repeat percutaneous MVR. After her MVR and ablation in July 2021, she has had recurrent ICD shocks for atrial flutter. She was referred to Dr. Nunez on 12/05/2021 for evaluation for atrial flutter ablation. It was recommended that she undergo JOVITA/EPS/possible ablation. She is here today at [facility] for these procedures. Patient denies recent complaints of illness, fevers, chills, sweats or exposure to COVID-19. Denies complaints of headache, lightheadedness, dizziness, chest pain, shortness of breath or palpitations. Denies complaints of nausea, vomiting or diarrhea. Denies complaints of lower extremity weakness or edema. Comorbidities: Comorbidites: Comorbid Conditionsatrial fibrillation, congestive heart failure, hypertension Type of Atrial FibrillationPersistent Type of Congestive Heart Failuresystolic CHF Additional Specificitywith hypertension Acuity of CHFchronic Past Medical/Surgical History: Medical History: Thrombus of left atrial appendage: History of ischemic cardiomyopathy: Migraines: Coronary artery disease: Chronic systolic heart failure: Ventricular tachycardia (paroxysmal): Valvular heart disease: Hyperlipidemia: Benign essential hypertension: H/O ST elevation myocardial infarction: Cardiogenic shock: Atrial flutter: Surg History: History of radiofrequency ablation (RFA) procedure for cardiac arrhythmia: History of knee surgery: S/P tonsillectomy and adenoidectomy: History of hysterectomy: S/P MVR (mitral valve repair): Status post aortic valve replacement: S/P CABG (coronary artery bypass graft): Family History: Cancer: yes Mother, father CAD: yes Mother Hypertension: yes Mother, father Stroke: yes Mother Social History: Social History: Smoking Statusformer smoker Alcohol Useoccasionally Drug Usedenies Allergies: Chantix: Unknown erythromycin: Unknown fentanyl: Other Levaquin: Other Zofran: Other Tape - Adhesive, Bandaids, Paper: Other Medications Prior to Admission: Admission Medication Reconciliation has not been completed for this patient. Review of Systems: Constitutional: NEGATIVE: Fever, Chills, Anorexia, Weight Loss, Malaise Eyes: NEGATIVE: Blurry Vision, Drainage, Diploplia, Redness, Vision Loss/ Change ENMT: NEGATIVE: Nasal Discharge, Nasal Congestion, Ear Pain, Mouth Pain, Throat Pain Respiratory: NEGATIVE: Dry Cough, Productive Cough, Hemoptysis, Wheezing, Shortness of Breath Cardiac: POSITIVE: Dyspnea on Exertion; NEGATIVE: Chest Pain, Orthopnea, Palpitations, Syncope Gastrointestinal: NEGATIVE: Nausea, Vomiting, Diarrhea, Constipation, Abdominal Pain Genitourinary: NEGATIVE: Discharge, Dysuria, Flank Pain, Frequency, Hematuria Musculoskeletal: POSITIVE: Swelling; NEGATIVE: Decreased ROM, Pain, Stiffness, Weakness Neurological: NEGATIVE: Dizziness, Confusion, Headache, Seizures, Syncope Skin: NEGATIVE: Mass, Pain, Pruritus, Rash, Ulcer All Other Systems: All other systems reviewed and are negative Objective: Objective Information: Vital signs reviewed and are stable. Physical Exam by System: Constitutional: Well developed, awake/alert/oriented x3, no distress, alert and cooperative Eyes: PERRL, EOMI, clear sclera ENMT: mucous membranes moist, no apparent injury, no lesions seen Head/Neck: Neck supple, no apparent injury, thyroid without mass or tenderness, No JVD, trachea midline, no bruits Respiratory/Thorax: Patent airways, CTAB, normal breath sounds with good chest expansion, thorax symmetric Cardiovascular: Irregular rate and rhythm, no murmurs, 2+ equal pulses of the extremities, normal S 1and S 2 Gastrointestinal: Nondistended, soft, non-tender, no rebound tenderness or guarding, no masses palpable, no organomegaly, +BS, no bruits Genitourinary: Deferred Musculoskeletal: ROM intact, no joint swelling, normal strength Extremities: normal extremities, 1+ LE edema, no contusions or wounds, no clubbing Neurological: alert and oriented x3, intact senses, motor, response and reflexes, normal strength Breast: Deferred Psychological: Appropriate mood and behavior Skin: Warm and dry, no lesions, no rashes Medications: Medications: I have reviewed active medication orders. Assessment and Plan: Impression 1: Persistent Atrial Flutter Plan for Impressi (more content not included)...[facility] 12-23-2021 Evaluation note* Encounter Date Diagnosis Assessment Notes Treatment Notes Treatment Clinical Notes Nov, Medication monitoring encounter (ICD-10 - Z51.81) Referring Provider: Robe Alonso (awaiting Dr. Hoskins referral) Diagnosis: Thrombus, Atrial Fibrillation INR Goal: 2-3 INR: 3.3 Tablet Size: 5mg Wednesday: 5mg Wednesday: 7.5mg Wednesday: 5mg Wednesday: 7.5mg : 5mg Wednesday: 7.5mg Wednesday: 5mg Total Weekly Dose: 42.5mg Reduce to 5mg tomorrow (dose taken today), then continue current plan. INR may be elevated due to boosting last week for low INR. Patient states she has ablation scheduled with Dr. Nunez next week, received instructions for bridging from that office and has Lovenox available. Patient will follow those written instructions and follow-up with clinic one week post procedure. A new referral is faxed to [facility] Pugh. Seen by Memo Fuchs PharmD [employer] Other 04-20-2022 Evaluation note* Encounter Date Diagnosis Assessment Notes Treatment Notes Treatment Clinical Notes Nov, Medication monitoring encounter (ICD-10 - Z51.81) Referring Provider: Robe Alonso (new re will be Dr. Rojas [phone]) Diagnosis: Thrombus, Atrial Fibrillation INR Goal: 2-3 INR: 1.82 ( 12/16 ) Tablet Size: 5mg Wednesday: 5mg Wednesday: 7.5mg Wednesday: 5mg Wednesday: 7.5mg : 5mg Wednesday: 7.5mg Wednesday: 5mg Total Weekly Dose: 42.5mg Discontinue Lovenox. Take warfarin as follows: 12/17-2 tabs, 12/18-1 1/2 tabs, 12/19-1 1/2 tabs, 12/20-1 tab, 12/21-1 tab, 12/22-1 1/2 tab, 12/23-1 tab. Follow up in 1 week. Patient admits to missing two doses of warfarin in the last 7 days. When patient was on the above plan while IP her INR's were in goal. See calendar. A new referral is faxed to [facility] Butler. Called [facility] [phone], spoke with Amanda SUMNER RN. A [facility] Physician is scheduled to see on 12/22 and take her as a patient. [facility] fax number is [phone]. [employer] Order: draw PT/INR on Completed by: Susan Euceda RN [employer] Other 04-13-2022 Evaluation note* Encounter Date Diagnosis Assessment Notes Treatment Notes Treatment Clinical Notes Nov, Medication monitoring encounter (ICD-10 - Z51.81) Referring Provider: Robe Alonso (new re will be Dr. Rojas [phone]) Diagnosis: Thrombus, Atrial Fibrillation INR Goal: 2-3 INR: 1.2 ( 12/09 ) Tablet Size: 5mg Wednesday: 5mg Wednesday: 7.5mg Wednesday: 5mg Wednesday: 7.5mg : 5mg Wednesday: 7.5mg Wednesday: 5mg Total Weekly Dose: 42.5mg [facility] was called, LVM at 8:38 asking for a return call. Addendum 2:53 no call at this time. 2:48 pm Called patient. Determing Dose. Begin Lovenox 80mg twice daily and follow instructions for boosting. See calendar. Patient will come in on Wednesday. Patient's INR was not drawn due to patient was very busy with other appointments. Reviewed with patient the need to check INR weekly at this time and to notify [facility] if she cannot make appointment. Patient will have INR drawn in clinic. It is recommended for patient to come in for appointments. Med list is updated. A Bridge Recommendation is faxed to PCP. Called [facility] [phone], m to return call. [facility] fax number is [phone]. [employer] Order: draw PT/INR on Completed by: Susan Euceda RN [employer] Other 03-23-2022 Evaluation note* Encounter Date Diagnosis Assessment Notes Treatment Notes Treatment Clinical Notes Oct, Medication monitoring encounter (ICD-10 - Z51.81) Referring Provider: Robe Alonso Diagnosis: Thrombus, Atrial Fibrillation INR Goal: 2-3 INR: 1.59 Tablet Size: 5mg Wednesday: 5mg Wednesday: 7.5mg Wednesday: 5mg Wednesday: 7.5mg : 5mg Wednesday: 7.5mg Wednesday: 5mg Total Weekly Dose: 42.5mg Determing Dose. Boost additional 2.5mg x2 days then resume above plan. INR was in goal while in-patient. Patient has had chronic diarrhea for some time and was discharged on Vanco. At this time diarrhea has stopped. This may be reason for low INR. Reviewed medications from discharge, patient's Amiodarone was increased from 200mg daily to 400mg daily. Follow up in 1 week. See calendar. Patient is drinking Boost supplement once daily. Attempted to call patient, phone disconnected during the ring. Will try later. Addendum: Called patient, discussed the above instructions. Patient repeated correctly. Called [facility] [phone], lvm with instructions. [facility] fax number is [phone]. This Order is faxed. [employer] Order: draw PT/INR on Thursday, November 25, 2021 Completed by: Susan Euceda RN [employer] Other 03-15-2022 Evaluation note* Encounter Date Diagnosis Assessment Notes Treatment Notes Treatment Clinical Notes Oct, Medication monitoring encounter (ICD-10 - Z51.81) Referring Provider: Robe Alonso Diagnosis: Thrombus, Atrial Fibrillation INR Goal: 2-3 INR: 2.2 Tablet Size: 5mg Wednesday: 5mg Wednesday: 7.5mg Wednesday: 5mg Wednesday: 7.5mg : 5mg Wednesday: 7.5mg Wednesday: 5mg Total Weekly Dose: 42.5mg Determing Dose. Continue above plan, Follow up in 1 week. See calendar. Patient is drinking Boost supplement once daily. Called [facility] [phone], lv for nurse with [facility]. LVM on Amanda's phone. Amanda returned call, discussed the above instructions. [facility] fax number is [phone]. This Order is faxed. [employer] Order: draw PT/INR on Thursday, November 18, 2021 Completed by: Susan Euceda RN [employer] Other 03-09-2022 Evaluation note* Encounter Date Diagnosis Assessment Notes Treatment Notes Treatment Clinical Notes Oct, Medication monitoring encounter (ICD-10 - Z51.81) Referring Provider: Robe Alonso Diagnosis: Thrombus, Atrial Fibrillation INR Goal: 2-3 INR: 1.11 ([facility] 11/05/21) Tablet Size: 5mg Wednesday: 5mg Wednesday: 7.5mg Wednesday: 5mg Wednesday: 7.5mg : 5mg Wednesday: 7.5mg Wednesday: 5mg Total Weekly Dose: 42.5mg Determing Dose. Boost additional 2.5mg x3 days, 11/05, and 11 then take as indicated above through Wednesday when HH will draw INR. See calendar. Discussion with patient to come in for a face to face appointment for education and developing a safe AC plan. Patient states she will call [facility] after talking to family members for rides. Called [facility] RODRÍGUEZ SUMNER for a return call. Addendum: Nurse Adriana SUMNER from [facility] returned call and stated understanding to instructions. Phone for HH [phone] ext [phone], [facility] [employer] fax number is [phone] per pt. Home Health Order: draw INR on Thursday, November 11, 2021 Completed by: Susan Euceda RN [employer] Other 03-02-2022 Evaluation note* Encounter Date Diagnosis Assessment Notes Treatment Notes Treatment Clinical Notes Oct, Medication monitoring encounter (ICD-10 - Z51.81) Referring Provider: Robe Alonso Diagnosis: Thrombus, Atrial Fibrillation INR Goal: 2-3 INR: 1.22 ([facility] 10/28/21) Tablet Size: 5mg Wednesday: 5mg Wednesday: 5mg Wednesday: 5mg Wednesday: 5mg : 5mg Wednesday: 5mg Wednesday: 5mg Total Weekly Dose: 35mg Determing Dose. Continue warfarin as instructed above. This will be discussed with Dr. Packer tomorrow as patient admits to having diarrhea and blood in stool. Clinical decision not to boost until Dr. Packer is made aware of bleeding. [phone]), nurse with [facility]. [employer] fax number is [phone] per pt. Home Health Order: draw INR on Completed by: Jeane Dykes [facility] [employer] Other 02-24-2022 Evaluation note* Encounter Date Diagnosis Assessment Notes Treatment Notes Treatment Clinical Notes Sep, Medication monitoring encounter (ICD-10 - Z51.81) Referring Provider: Robe Alonso Diagnosis: Thrombus, Atrial Fibrillation INR Goal: 2-3 INR: 1.29 ([facility]) Tablet Size: 5mg Wednesday: 5mg Wednesday: 5mg Wednesday: 5mg Wednesday: 5mg : 5mg Wednesday: 5mg Wednesday: 5mg Total Weekly Dose: 35mg Boost additional 2.5mg for 3 days, then resume above plan. Follow up with a HH draw on Wednesday. Patient was not bridged with Lovenox at discharge from [facility]. Patient has been back on warfarin for 1 week. HH Adriana's phone number ([phone]), nurse with [facility]. [employer] fax number is [phone] per pt. Home Health Order: draw INR on Wednesday10/28/2021 Completed by: Jeane Dykes, [facility] [employer] Other 01-01-2022 History of Present illness Narrative* She is here for electrophysiology follow-up. * She denies any arrhythmia symptoms. * She has been under a lot of stress. Her mother from cancer earlier this year. Her father has been diagnosed with cancer as well. * The patient denies any lightheadedness, near syncope, syncope, palpitation, chest discomfort, dyspnea, HANKINS with mild exertion, PND, or edema. * The device site continues to be well-healed and unchanged. The patient denies any redness, swelling, or drainage of the site. * See ROS, PMH, FMH, and surgical history for details. * She has remote history of TN , cardiogenic shock, PCI circumflex and iABP, with persistent severe LV dysfunction. She later occluded her cicumflex. Years later, she had HF and severe MR and underwentmitral valve repair at [facility]. She had recurrent VT and atrial arrhythmias, and underwent several ablations and repeat percutaneous MVR at [facility]. After her MVR and ablation in July,, she had KALLI when then improved. She has had recurrent ICD shocks for atrial flutter. * Personal review of ECG and cardiac data reviewed * Outside records: * EP study and successful ablation of atrial flutter. Multiple atrial tachycardias, possible left atrial tachycardia also noted and not targeted for ablation. December 2021. * Discharge summary [facility] Oct 2021 * Cardiology consult Oct 2021 * ECG Oct 2021 * H and P Oct 2021 * Echo Oct 2021. LVEF 15% * ECG: Today. AV paced rhythm left axis deviation. Paced QT 480 * See signed ECG and check /Paceart. * Imp / Plan * Paroxsymal atrial flutter. Mutliple ICD shocks. Status post ablation of atrial flutter no recurrence of inappropriate shocks. * Chronic systolic heart failure. Stable NYHA III C HF. Chronic systolic heart failure. Reviewed meds. Continue meds. Discussed refills. Patient reports that she follows up with [facility]. [facility] cardiology for further adjustment of medication. Patient will notify us with whom she follows. Co nsider referral to advanced heart failure section. * Sustained VT s/p ablations at [facility]. No documentation of ablations available in chart. * CAD, chronic. See above. Reviewed meds. Continue meds. Discussed refills. * Biventricular ICD for refractory heart failure. Medtronic [id number]. Reviewed device check. No recentdevice check noted. Order sent to [facility] device clinic for device checks. * Hypertension, chronic. Stable. Reviewed meds. Continue meds. Discussed refills. * Migraine headache * AHA recommendations for exercise, diet, and behavioral modification reviewed with pt. * The patient and I discussed the mechanism of arrhythmia, ablation to prevent atrial flutter, no recurrent inappropriate shocks, need for compliance for device checks, order sent to [facility] for device checks, follow-up with heart failure clinic at [facility], indications for and typesof medications, discussion if and what medication refills needed, treatment options, risks, benefits, and imponderables. [place] [employer] lifestyle changes and behavioral modification discussed. All questions answered in detail. Counseling over 50% visit regarding above. Patient appreciative of care. * Grammar * Please excuse grammatical or dictation errors as software dictation application being used. [facility] Hospital[facility]row[facility]unesW[facility] DO Work Phone: [phone]) 418-311311-18-2021 Evaluation note* Encounter Date Diagnosis Assessment Notes Treatment Notes Treatment Clinical Notes Jun, Medication monitoring encounter (ICD-10 - Z51.81) Referring Provider: Robe Alonso Diagnosis: Thrombus, Atrial Fibrillation INR Goal: 2-3 INR: 2.0 Tablet Size: 5mg Wednesday: 5mg Lukas: 5mg Wednesday: 2.5mg Wednesday: 5mg : 5mg Wednesday: 5mg Wednesday: 5mg Total Weekly Dose: 32.5mg Begin above plan, patient states she has been skipping Wednesday doses, misunderstanding previous instructions. Will add back 2.5mg weekly due to lower INR. Follow up in 2 weeks. Seen by Memo Fuchs PharmD [employer] Other 11-01-2021 Evaluation note* Encounter Date Diagnosis Assessment Notes Treatment Notes Treatment Clinical Notes Jun, Medication monitoring encounter (ICD-10 - Z51.81) Referring Provider: Robe Alonso Diagnosis: Thrombus, Atrial Fibrillation INR Goal: 2-3 INR: 4.4 Tablet Size: 5mg Wednesday: 5mg Wednesday: 5mg Wednesday: 5mg Wednesday: 5mg : 5mg Wednesday: 5mg Wednesday: 5mg Total Weekly Dose: 35mg Hold warfarin today, Saturday 06/30 and then begin new plan, a 7% decrease. Discussed compliance with appointments. See raymond. Follow up in 2 weeks. Seen by Susan Euceda RN [employer] Other 10-11-2021 Evaluation note* Encounter Date Diagnosis Assessment Notes Treatment Notes Treatment Clinical Notes May, Medication monitoring encounter (ICD-10 - Z51.81) Referring Provider: Robe Alonso Diagnosis: Thrombus, Atrial Fibrillation INR Goal: 2-3 INR: 4.9 Tablet Size: 5mg Wednesday: 5mg Wednesday: 5mg Wednesday: 7.5mg Wednesday: 5mg : 5mg Wednesday: 5mg Wednesday: 5mg Total Weekly Dose: 37.5mg Since this is the first supratherapeutic INR in a while, hold today 06/09 and tomorrow 06/10, then resume as normal. No identifiable cause. No signs of bleeding so we did not give vitamin K. Return to clinic in 2 weeks. Seen by Jose Molina PharmD [employer] Other 10-17-2020 History of Past illness Narrative* Problem Noted Date Resolved Date Acute on chronic systolic (congestive) heart irving salomon 06/15/2020 07/23/2020 Overview: Acute on chronic VT likely playing a role Echo 11/15/18: EF 35%, severely dilated LA, dilated RA, MVR (CE), trace MR, 2-3+ TR, RVSP 51 mmHg JOVITA 06/10: EF 30%, dilated LA, NASRA thrombus (1.7x1.7cm), 1+ MR, 4+TR. TTE 06/11: EF 27%. Cornell-Lang prosthetic mitral valve (size #27). There is trace (trace - 1+) mitral valve regurgitation. The peak gradient is 12 mmHg and the mean gradient is 5 mmHg. MV gradients recorded at 60bpm. 2-3+ TR. RVSP 63 mmHg. Improved after diuresis with IV Lasix on admission. Stable. Plan: Continue Entresto, carvedilol, spironolactone. 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 Ventricular tachycardia 06/08/2020 06/23/20 Overview: Recurrent, slow, hemodynamically stable VT around 107 bmp despite amiodarone VT ablation 06/10 aborted due to large NASRA thrombus. JOVITA 06/10: EF 30%, dilated LA, NASRA thrombus (1.7x1.7cm), 1+ MR, 4+TR. TTE 06/11: EF 27%. Cornell-Lang prosthetic mitral valve (size #27). There is trace (trace - 1+) mitral valve regurgitation. The peak gradient is 12 mmHg and the mean gradient is 5 mmHg. MV gradients recorded at 60bpm. 2-3+ TR. RVSP 63 mmHg. During Device check monitor zone added at 100 bpm to detect further slow VT Started on IV amio and IV lidocaine on the floor prior to transfer to CICU on 06/17 In ICU, she underwent programmed extrastimulation (440ms X 12, followed by 260ms and 260ms) terminating VT. Transfer to [facility] on 06/20 Plan: Continue amiodarone 400 mg BID and mexilitine 150 mg TID. Given large NASRA clot, would advise against cardioversion unless patient is unstable. VT ablation risky in setting of large NASRA thrombus. Plan to monitor patient over the weekend for recurrent VT. If she remains stable, likely discharge home on Wednesday Dyslipidemia, goal LDL below 70 07/17/2012 07/23/2020 Overview: 07.18.2012: Pre-op Lipid panel: TC 152, TC 265, HDL 39, LDL 60. On Zocor 80 mg pre-op. Will consider changing statin d/t high incidence of interactions with Zocor 80. Consider Lipitor 80 in light of prior STEMI. Fluid overload 07/14/2012 07/16/2012 Overview: Cont diuresis Post-op Afib (s/p DCCV x 1) 07/14/201207/01 Overview: Currently A-paced. On po amio - will continue for rate control of underlying rhythm as ICD threshold is set at 130 and AFib RVR is causing inappropriate firing of AICD. Started on coumadin- PT/INR supra-therapeutic at 3.8. Will hold coumadin tonight and monitor. No overt signs of bleeding. PMW cut without incident 07.18.2012. Other acute postoperative pain 07/13/201209/15/2011 Overview: IV Fentanyl PRN, [employer]ER, Lidoderm patches, Po pain meds Pulmonary insuff 07/13/2012 07/23/2020 Overview: On RA, wt down 2.1 kg from admisison. CXR 07.16 reveals probable small left pleural effusions. On IV lasix- changed to po. Encourage increased activity, PEP. Cardiac insufficiency following cardiac surgery 07/13/2012 07/14/2012 Overview: Per report CI 1.7 in OR, started IV Epi Wean for CI > 2.5 Intravascular volume depletion 07/13/2012 1 09/13/2011 Overview: Gentle fluid resuscitation PRN EF 35-40% SUMMARY 07/11/2012 07/23/2020 Overview: Principal Diagnosis: Fatigue, SOB, chest pain, MR. Preop: LVEF: 10-25% RVF: Normal Post -op: LVEF: 16% RVF: Normal Comorbidities: CAD, remote STEMI (1998 s/p multiple BMS to LCx (now with in stent restenosis)-IABP, AICD 1998, HTN (JUDAH), HPL, ex-smoker (1.5 ppd for 15 yrs, quit 07/04/12), GERD, migraines, depression, anxiety. Surgery: 07/13/2012: MVR (CE #27mm), preservation of papillary muscles and chordal apparatus CVICU: Afib w/RVR (resulting in inappropriate shocks x 6- EP consulted). RNF on POD 2 DVT prophylaxis: Encourage increased activity, PEP. Preop testing 07/08/2012 07/23/2020 Overview: Images from the original note were not included. [facility] Surgeon: Kvng Merlos M.D. Informed Consent Completed done STS Score: 0.6% CAD: no Is intended procedure a CABG: No H & P completed: Yes PA/LAT: Completed CT: N/A MRI: N/A LE US: N/A Cath: Yes - reviewed: Yes Echo:Completed EKG: Completed EF %: 28 PI's: N/A Carotid: N/A Mapping: N/A Dental: cleared. PFT's: Completed CBC, Coags, BMP, Mg, Phos Basename 07/12/12 0507 07/11/12 2220 WBC 8.50 6.78 HB 13.1 12.9 HCT 40.0 38.7 PLT 205 176 INR -- 1.2 APTT -- 29.9 NA 140 137 K 3.6 3.7 CHLOR 107 105 CO2 19* 22* BUN 12 13 CREAT 0.91 0.83 GLUC 113* 91 CA 8.8 8.4* MG 1.8 2.1 P -- -- UA: neg HCG:Completed ABO/ABO Confirmed: Yes Blood ordered: Yes SA Swab: Yes - results: neg Last Dose of Anticoagulation: asa 81 Op Note: N/A Pacemaker Check: Yes Consults: none DM: No Cardiac Surgical prep: N/A SIGNATURE: Cindi Ramírez MS, PAAbdoulayeC DATE of SERVICE: 07/08/2012 TIME of SERVICE: 1:24 PM mwa 07/12 Anemia 10/29/2011 07/23/2020 Overview: in 10/2011, s/p blood transfusions in 10/2011 Fitting and adjustment of orthopedic device 04/0107/23/2020 Urinary tract infection of 07/26/2004 07/23/2020 Remote STEMI (1998) 07/23/2020 Overview: 07.18.2012: On ASA, BB, ADELE. On Zocor 80 mg pre-op. Will consider starting an alternative statin therapy d/t multiple interactions with Zocor at higher doses. Cardiogenic shock 07/23/2020 Heart failure, systolic, acute on chronic 07/23/2020 Overview: Pre-op EF 10-25% preop, post-op EF 16%. No JVD, no LE edema, lungs clear, SR , SBP normotensive, wt below admission. On BB (Coreg), diuretic, low-dose ADELE (with parameters). Will monitor I&O's, wts. 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 EP consulted- will follow their recommendations (will continue po amio taper to control rate). Needs pacer check- Wednesday07.18.2012- will d/w EP about pacer check. H/o GERD 07/23/2020 Overview: 07.18.2012: Asymptomatic. On Protonix. documented as of this encounter (statuses as of 01/14/2022) [facility]10-17-2020 History of Past illness Narrative* Problem Noted Date Resolved Date Acute on chronic systolic (congestive) heart irving davianre 06/15/2020 07/23/2020 Overview: Acute on chronic VT likely playing a role Echo 11/15/18: EF 35%, severely dilated LA, dilated RA, MVR (CE), trace MR, 2-3+ TR, RVSP 51 mmHg JOVITA 06/10: EF 30%, dilated LA, NASRA thrombus (1.7x1.7cm), 1+ MR, 4+TR. TTE 06/11: EF 27%. Cornell-Lang prosthetic mitral valve (size #27). There is trace (trace - 1+) mitral valve regurgitation. The peak gradient is 12 mmHg and the mean gradient is 5 mmHg. MV gradients recorded at 60bpm. 2-3+ TR. RVSP 63 mmHg. Improved after diuresis with IV Lasix on admission. Stable. Plan: Continue Entresto, carvedilol, spironolactone. 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 Ventricular tachycardia 06/08/2020 06/23/20 20 Overview: Recurrent, slow, hemodynamically stable VT around 107 bmp despite amiodarone VT ablation 06/10 aborted due to large NASRA thrombus. JOVITA 06/10: EF 30%, dilated LA, NASRA thrombus (1.7x1.7cm), 1+ MR, 4+TR. TTE 06/11: EF 27%. Cornell-Lang prosthetic mitral valve (size #27). There is trace (trace - 1+) mitral valve regurgitation. The peak gradient is 12 mmHg and the mean gradient is 5 mmHg. MV gradients recorded at 60bpm. 2-3+ TR. RVSP 63 mmHg. During Device check monitor zone added at 100 bpm to detect further slow VT Started on IV amio and IV lidocaine on the floor prior to transfer to CICU on 06/17 In ICU, she underwent programmed extrastimulation (440ms X 12, followed by 260ms and 260ms) terminating VT. Transfer to [facility] on 06/20 Plan: Continue amiodarone 400 mg BID and mexilitine 150 mg TID. Given large NASRA clot, would advise against cardioversion unless patient is unstable. VT ablation risky in setting of large NASRA thrombus. Plan to monitor patient over the weekend for recurrent VT. If she remains stable, likely discharge home on Wednesday Dyslipidemia, goal LDL below 70 07/17/2012 07/23/2020 Overview: 07.18.2012: Pre-op Lipid panel: TC 152, TC 265, HDL 39, LDL 60. On Zocor 80 mg pre-op. Will consider changing statin d/t high incidence of interactions with Zocor 80. Consider Lipitor 80 in light of prior STEMI. Fluid overload 07/14/2012 07/16/2012 Overview: Cont diuresis Post-op Afib (s/p DCCV x 1) 07/14/201207/01 Overview: Currently A-paced. On po amio - will continue for rate control of underlying rhythm as ICD threshold is set at 130 and AFib RVR is causing inappropriate firing of AICD. Started on coumadin- PT/INR supra-therapeutic at 3.8. Will hold coumadin tonight and monitor. No overt signs of bleeding. PMW cut without incident 07.18.2012. Other acute postoperative pain 07/13/2012 1 09/15/2011 Overview: IV Fentanyl PRN, [employer], Lidoderm patches, Po pain meds Pulmonary insuff 07/13/2012 07/23/2020 Overview: On RA, wt down 2.1 kg from admisison. CXR 07.16 reveals probable small left pleural effusions. On IV lasix- changed to po. Encourage increased activity, PEP. Cardiac insufficiency following cardiac surgery 07/13/2012 07/14/2012 Overview: Per report CI 1.7 in OR, started IV Epi Wean for CI > 2.5 Intravascular volume depletion 07/13/2012 1 09/13/2011 Overview: Gentle fluid resuscitation PRN EF 35-40% SUMMARY 07/11/2012 07/23/2020 Overview: Principal Diagnosis: Fatigue, SOB, chest pain, MR. Preop: LVEF: 10-25% RVF: Normal Post -op: LVEF: 16% RVF: Normal Comorbidities: CAD, remote STEMI (1998 s/p multiple BMS to LCx (now with in stent restenosis)-IABP, AICD 1998, HTN (JUDAH), HPL, ex-smoker (1.5 ppd for 15 yrs, quit 07/04/12), GERD, migraines, depression, anxiety. Surgery: 07/13/2012: MVR (CE #27mm), preservation of papillary muscles and chordal apparatus CVICU: Afib w/RVR (resulting in inappropriate shocks x 6- EP consulted). RNF on POD 2 DVT prophylaxis: Encourage increased activity, PEP. Preop testing 07/08/2012 07/23/2020 Overview: Images from the original note were not included. [facility] PRE-OP [facility] Surgeon: Kvng Merlos M.D. Informed Consent Completed done STS Score: 0.6% CAD: no Is intended procedure a CABG: No H & P completed: Yes PA/LAT: Completed CT: N/A MRI: N/A LE US: N/A Cath: Yes - reviewed: Yes Echo:Completed EKG: Completed EF %: 28 PI's: N/A Carotid: N/A Mapping: N/A Dental: cleared. PFT's: Completed CBC, Coags, BMP, Mg, Phos Basename 07/12/12 0507 07/11/12 2220 WBC 8.50 6.78 HB 13.1 12.9 HCT 40.0 38.7 PLT 205 176 INR -- 1.2 APTT -- 29.9 NA 140 137 K 3.6 3.7 CHLOR 107 105 CO2 19* 22* BUN 12 13 CREAT 0.91 0.83 GLUC 113* 91 CA 8.8 8.4* MG 1.8 2.1 P -- -- UA: neg HCG:Completed ABO/ABO Confirmed: Yes Blood ordered: Yes SA Swab: Yes - results: neg Last Dose of Anticoagulation: asa 81 Op Note: N/A Pacemaker Check: Yes Consults: none DM: No Cardiac Surgical prep: N/A SIGNATURE: Cindi Ramírez MS, PARosemarie DATE of SERVICE: 07/08/2012 TIME of SERVICE: 1:24 PM mwa 07/12 Anemia 10/29/2011 07/23/2020 Overview: in 10/2011, s/p blood transfusions in 10/2011 Fitting and adjustment of orthopedic device 04/0107/23/2020 Urinary tract infection of 07/26/2004 07/23/2020 Remote STEMI (1998) 07/23/2020 Overview: 07.18.2012: On ASA, BB, ADELE. On Zocor 80 mg pre-op. Will consider starting an alternative statin therapy d/t multiple interactions with Zocor at higher doses. Cardiogenic shock 07/23/2020 Heart failure, systolic, acute on chronic 07/23/2020 Overview: Pre-op EF 10-25% preop, post-op EF 16%. No JVD, no LE edema, lungs clear, SR , SBP normotensive, wt below admission. On BB (Coreg), diuretic, low-dose ADELE (with parameters). Will monitor I&O's, wts. 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 EP consulted- will follow their recommendations (will continue po amio taper to control rate). Needs pacer check- Wednesday07.18.2012- will d/w EP about pacer check. H/o GERD 07/23/2020 Overview: 07.18.2012: Asymptomatic. On Protonix. documented as of this encounter (statuses as of 04/12/2022) [facility]10-17-[facility] History of Past illness Narrative* Problem Noted Date Resolved Date Acute on chronic systolic (congestive) heart irving lure 06/15/2020 07/23/2020 Overview: Acute on chronic VT likely playing a role Echo 11/15/18: EF 35%, severely dilated LA, dilated RA, MVR (CE), trace MR, 2-3+ TR, RVSP 51 mmHg JOVITA 06/10: EF 30%, dilated LA, NASRA thrombus (1.7x1.7cm), 1+ MR, 4+TR. TTE 06/11: EF 27%. Cornell-Lang prosthetic mitral valve (size #27). There is trace (trace - 1+) mitral valve regurgitation. The peak gradient is 12 mmHg and the mean gradient is 5 mmHg. MV gradients recorded at 60bpm. 2-3+ TR. RVSP 63 mmHg. Improved after diuresis with IV Lasix on admission. Stable. Plan: Continue Entresto, carvedilol, spironolactone. 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 Ventricular tachycardia 06/08/2020 06/23/20 20 Overview: Recurrent, slow, hemodynamically stable VT around 107 bmp despite amiodarone VT ablation 06/10 aborted due to large NASRA thrombus. JOVITA 06/10: EF 30%, dilated LA, NASRA thrombus (1.7x1.7cm), 1+ MR, 4+TR. TTE 06/11: EF 27%. Cornell-Lang prosthetic mitral valve (size #27). There is trace (trace - 1+) mitral valve regurgitation. The peak gradient is 12 mmHg and the mean gradient is 5 mmHg. MV gradients recorded at 60bpm. 2-3+ TR. RVSP 63 mmHg. During Device check monitor zone added at 100 bpm to detect further slow VT Started on IV amio and IV lidocaine on the floor prior to transfer to CICU on 06/17 In ICU, she underwent programmed extrastimulation (440ms X 12, followed by 260ms and 260ms) terminating VT. Transfer to [facility] on 06/20 Plan: Continue amiodarone 400 mg BID and mexilitine 150 mg TID. Given large NASRA clot, would advise against cardioversion unless patient is unstable. VT ablation risky in setting of large NASRA thrombus. Plan to monitor patient over the weekend for recurrent VT. If she remains stable, likely discharge home on Wednesday Dyslipidemia, goal LDL below 70 07/17/2012 07/23/2020 Overview: 07.18.2012: Pre-op Lipid panel: TC 152, TC 265, HDL 39, LDL 60. On Zocor 80 mg pre-op. Will consider changing statin d/t high incidence of interactions with Zocor 80. Consider Lipitor 80 in light of prior STEMI. Fluid overload 07/14/2012 07/16/2012 Overview: Cont diuresis Post-op Afib (s/p DCCV x 1) 07/14/201207/01 Overview: Currently A-paced. On po amio - will continue for rate control of underlying rhythm as ICD threshold is set at 130 and AFib RVR is causing inappropriate firing of AICD. Started on coumadin- PT/INR supra-therapeutic at 3.8. Will hold coumadin tonight and monitor. No overt signs of bleeding. PMW cut without incident 07.18.2012. Other acute postoperative pain 07/13/2012 1 09/15/2011 Overview: IV Fentanyl PRN, [employer]ER, Lidoderm patches, Po pain meds Pulmonary insuff 07/13/2012 07/23/2020 Overview: On RA, wt down 2.1 kg from admisison. CXR 07.16 reveals probable small left pleural effusions. On IV lasix- changed to po. Encourage increased activity, PEP. Cardiac insufficiency following cardiac surgery 07/13/2012 07/14/2012 Overview: Per report CI 1.7 in OR, started IV Epi Wean for CI > 2.5 Intravascular volume depletion 07/13/2012 1 09/13/2011 Overview: Gentle fluid resuscitation PRN EF 35-40% SUMMARY 07/11/2012 07/23/2020 Overview: Principal Diagnosis: Fatigue, SOB, chest pain, MR. Preop: LVEF: 10-25% RVF: Normal Post -op: LVEF: 16% RVF: Normal Comorbidities: CAD, remote STEMI (1998 s/p multiple BMS to LCx (now with in stent restenosis)-IABP, AICD 1998, HTN (JUDAH), HPL, ex-smoker (1.5 ppd for 15 yrs, quit 07/04/12), GERD, migraines, depression, anxiety. Surgery: 07/13/2012: MVR (CE #27mm), preservation of papillary muscles and chordal apparatus CVICU: Afib w/RVR (resulting in inappropriate shocks x 6- EP consulted). RNF on POD 2 DVT prophylaxis: Encourage increased activity, PEP. Preop testing 07/08/2012 07/23/2020 Overview: Images from the original note were not included. [facility] PRE-OP CHECKLIST Surgeon: Kvng Merlos M.D. Informed Consent Completed done STS Score: 0.6% CAD: no Is intended procedure a CABG: No H & P completed: Yes PA/LAT: Completed CT: N/A MRI: N/A LE US: N/A Cath: Yes - reviewed: Yes Echo:Completed EKG: Completed EF %: 28 PI's: N/A Carotid: N/A Mapping: N/A Dental: cleared. PFT's: Completed CBC, Coags, BMP, Mg, Phos Basename 07/12/12 0507 07/11/12 2220 WBC 8.50 6.78 HB 13.1 12.9 HCT 40.0 38.7 PLT 205 176 INR -- 1.2 APTT -- 29.9 NA 140 137 K 3.6 3.7 CHLOR 107 105 CO2 19* 22* BUN 12 13 CREAT 0.91 0.83 GLUC 113* 91 CA 8.8 8.4* MG 1.8 2.1 P -- -- UA: neg HCG:Completed ABO/ABO Confirmed: Yes Blood ordered: Yes SA Swab: Yes - results: neg Last Dose of Anticoagulation: asa 81 Op Note: N/A Pacemaker Check: Yes Consults: none DM: No Cardiac Surgical prep: N/A SIGNATURE: Cindi Ramírez, , PAAbdoulayeC DATE of SERVICE: 07/08/2012 TIME of SERVICE: 1:24 PM mwa 07/12 Anemia 10/29/2011 07/23/2020 Overview: in 10/2011, s/p blood transfusions in 10/2011 Fitting and adjustment of orthopedic device 04/0107/23/2020 Urinary tract infection of 07/26/2004 07/23/2020 Remote STEMI (1998) 07/23/2020 Overview: 07.18.2012: On ASA, BB, ADELE. On Zocor 80 mg pre-op. Will consider starting an alternative statin therapy d/t multiple interactions with Zocor at higher doses. Cardiogenic shock 07/23/2020 Heart failure, systolic, acute on chronic 07/23/2020 Overview: Pre-op EF 10-25% preop, post-op EF 16%. No JVD, no LE edema, lungs clear, SR , SBP normotensive, wt below admission. On BB (Coreg), diuretic, low-dose ADELE (with parameters). Will monitor I&O's, wts. 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 EP consulted- will follow their recommendations (will continue po amio taper to control rate). Needs pacer check- Wednesday07.18.2012- will d/w EP about pacer check. H/o GERD 07/23/2020 Overview: 07.18.2012: Asymptomatic. On Protonix. documented as of this encounter (statuses as of 06/01/2022) [facility]10-17-2020 History of Past illness Narrative* Problem Noted Date Resolved Date Acute on chronic systolic (congestive) heart irving lure 06/15/2020 07/23/2020 Overview: Acute on chronic VT likely playing a role Echo 11/15/18: EF 35%, severely dilated LA, dilated RA, MVR (CE), trace MR, 2-3+ TR, RVSP 51 mmHg JOVITA 06/10: EF 30%, dilated LA, NASRA thrombus (1.7x1.7cm), 1+ MR, 4+TR. TTE 06/11: EF 27%. Cornell-Lang prosthetic mitral valve (size #27). There is trace (trace - 1+) mitral valve regurgitation. The peak gradient is 12 mmHg and the mean gradient is 5 mmHg. MV gradients recorded at 60bpm. 2-3+ TR. RVSP 63 mmHg. Improved after diuresis with IV Lasix on admission. Stable. Plan: Continue Entresto, carvedilol, spironolactone. 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 Ventricular tachycardia 06/08/2020 06/23/20 20 Overview: Recurrent, slow, hemodynamically stable VT around 107 bmp despite amiodarone VT ablation 06/10 aborted due to large NASRA thrombus. JOVITA 06/10: EF 30%, dilated LA, NASRA thrombus (1.7x1.7cm), 1+ MR, 4+TR. TTE 06/11: EF 27%. Corenll-Lang prosthetic mitral valve (size #27). There is trace (trace - 1+) mitral valve regurgitation. The peak gradient is 12 mmHg and the mean gradient is 5 mmHg. MV gradients recorded at 60bpm. 2-3+ TR. RVSP 63 mmHg. During Device check monitor zone added at 100 bpm to detect further slow VT Started on IV amio and IV lidocaine on the floor prior to transfer to CICU on 06/17 In ICU, she underwent programmed extrastimulation (440ms X 12, followed by 260ms and 260ms) terminating VT. Transfer to [facility] on 06/20 Plan: Continue amiodarone 400 mg BID and mexilitine 150 mg TID. Given large NASRA clot, would advise against cardioversion unless patient is unstable. VT ablation risky in setting of large NASRA thrombus. Plan to monitor patient over the weekend for recurrent VT. If she remains stable, likely discharge home on Wednesday Dyslipidemia, goal LDL below 70 07/17/2012 07/23/2020 Overview: 07.18.2012: Pre-op Lipid panel: TC 152, TC 265, HDL 39, LDL 60. On Zocor 80 mg pre-op. Will consider changing statin d/t high incidence of interactions with Zocor 80. Consider Lipitor 80 in light of prior STEMI. Fluid overload 07/14/2012 07/16/2012 Overview: Cont diuresis Post-op Afib (s/p DCCV x 1) 07/14/201207/01 Overview: Currently A-paced. On po amio - will continue for rate control of underlying rhythm as ICD threshold is set at 130 and AFib RVR is causing inappropriate firing of AICD. Started on coumadin- PT/INR supra-therapeutic at 3.8. Will hold coumadin tonight and monitor. No overt signs of bleeding. PMW cut without incident 07.18.2012. Other acute postoperative pain 07/13/2012 1 09/15/2011 Overview: IV Fentanyl PRN, [employer] TE[employer]ER, Lidoderm patches, Po pain meds Pulmonary insuff 07/13/2012 07/23/2020 Overview: On RA, wt down 2.1 kg from admisison. CXR 11.17 reveals probable small left pleural effusions. On IV lasix- changed to po. Encourage increased activity, PEP. Cardiac insufficiency following cardiac surgery 07/13/2012 07/14/2012 Overview: Per report CI 1.7 in OR, started IV Epi Wean for CI > 2.5 Intravascular volume depletion 07/13/2012 1 09/13/2011 Overview: Gentle fluid resuscitation PRN EF 35-40% SUMMARY 07/11/2012 07/23/2020 Overview: Principal Diagnosis: Fatigue, SOB, chest pain, MR. Preop: LVEF: 10-25% RVF: Normal Post -op: LVEF: 16% RVF: Normal Comorbidities: CAD, remote STEMI (1998 s/p multiple BMS to LCx (now with in stent restenosis)-IABP, AICD 1998, HTN (JUDAH), HPL, ex-smoker (1.5 ppd for 15 yrs, quit 07/04/12), GERD, migraines, depression, anxiety. Surgery: 07/13/2012: MVR (CE #27mm), preservation of papillary muscles and chordal apparatus CVICU: Afib w/RVR (resulting in inappropriate shocks x 6- EP consulted). RNF on POD 2 DVT prophylaxis: Encourage increased activity, PEP. Preop testing 07/08/2012 07/23/2020 Overview: Images from the original note were not included. [facility] Surgeon: Kvng Merlos M.D. Informed Consent Completed done STS Score: 0.6% CAD: no Is intended procedure a CABG: No H & P completed: Yes PA/LAT: Completed CT: N/A MRI: N/A LE US: N/A Cath: Yes - reviewed: Yes Echo:Completed EKG: Completed EF %: 28 PI's: N/A Carotid: N/A Mapping: N/A Dental: cleared. PFT's: Completed CBC, Coags, BMP, Mg, Phos Basename 07/12/12 0507 07/11/12 2220 WBC 8.50 6.78 HB 13.1 12.9 HCT 40.0 38.7 PLT 205 176 INR -- 1.2 APTT -- 29.9 NA 140 137 K 3.6 3.7 CHLOR 107 105 CO2 19* 22* BUN 12 13 CREAT 0.91 0.83 GLUC 113* 91 CA 8.8 8.4* MG 1.8 2.1 P -- -- UA: neg HCG:Completed ABO/ABO Confirmed: Yes Blood ordered: Yes SA Swab: Yes - results: neg Last Dose of Anticoagulation: asa 81 Op Note: N/A Pacemaker Check: Yes Consults: none DM: No Cardiac Surgical prep: N/A SIGNATURE: Cindi Ramírez, , PA-C DATE of SERVICE: 07/08/2012 TIME of SERVICE: 1:24 PM mwa 07/12 Anemia 10/29/2011 07/23/2020 Overview: in 10/2011, s/p blood transfusions in 10/2011 Fitting and adjustment of orthopedic device 04/0107/23/2020 Urinary tract infection of 07/26/2004 07/23/2020 Remote STEMI (1998) 07/23/2020 Overview: 07.18.2012: On ASA, BB, ADELE. On Zocor 80 mg pre-op. Will consider starting an alternative statin therapy d/t multiple interactions with Zocor at higher doses. Cardiogenic shock 07/23/2020 Heart failure, systolic, acute on chronic 07/23/2020 Overview: Pre-op EF 10-25% preop, post-op EF 16%. No JVD, no LE edema, lungs clear, SR , SBP normotensive, wt below admission. On BB (Coreg), diuretic, low-dose ADELE (with parameters). Will monitor I&O's, wts. 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 EP consulted- will follow their recommendations (will continue po amio taper to control rate). Needs pacer check- Wednesday07.18.2012- will d/w EP about pacer check. H/o GERD 07/23/2020 Overview: 07.18.2012: Asymptomatic. On Protonix. documented as of this encounter (statuses as of 07/01/2022) [facility]10-17-2020 History of Past illness Narrative* Problem Noted Date Resolved Date Acute on chronic systolic (congestive) heart irving lure 06/15/2020 07/23/2020 Overview: Acute on chronic VT likely playing a role Echo 11/15/18: EF 35%, severely dilated LA, dilated RA, MVR (CE), trace MR, 2-3+ TR, RVSP 51 mmHg JOVITA 06/10: EF 30%, dilated LA, NASRA thrombus (1.7x1.7cm), 1+ MR, 4+TR. TTE 06/11: EF 27%. Cornell-Lang prosthetic mitral valve (size #27). There is trace (trace - 1+) mitral valve regurgitation. The peak gradient is 12 mmHg and the mean gradient is 5 mmHg. MV gradients recorded at 60bpm. 2-3+ TR. RVSP 63 mmHg. Improved after diuresis with IV Lasix on admission. Stable. Plan: Continue Entresto, carvedilol, spironolactone. 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 Ventricular tachycardia 06/08/2020 06/23/20 20 Overview: Recurrent, slow, hemodynamically stable VT around 107 bmp despite amiodarone VT ablation 06/10 aborted due to large NASRA thrombus. JOVITA 06/10: EF 30%, dilated LA, NASRA thrombus (1.7x1.7cm), 1+ MR, 4+TR. TTE 06/11: EF 27%. Cornell-Lang prosthetic mitral valve (size #27). There is trace (trace - 1+) mitral valve regurgitation. The peak gradient is 12 mmHg and the mean gradient is 5 mmHg. MV gradients recorded at 60bpm. 2-3+ TR. RVSP 63 mmHg. During Device check monitor zone added at 100 bpm to detect further slow VT Started on IV amio and IV lidocaine on the floor prior to transfer to CICU on 06/17 In ICU, she underwent programmed extrastimulation (440ms X 12, followed by 260ms and 260ms) terminating VT. Transfer to [facility] on 06/20 Plan: Continue amiodarone 400 mg BID and mexilitine 150 mg TID. Given large NASRA clot, would advise against cardioversion unless patient is unstable. VT ablation risky in setting of large NASRA thrombus. Plan to monitor patient over the weekend for recurrent VT. If she remains stable, likely discharge home on Wednesday Dyslipidemia, goal LDL below 70 07/17/2012 07/23/2020 Overview: 07.18.2012: Pre-op Lipid panel: TC 152, TC 265, HDL 39, LDL 60. On Zocor 80 mg pre-op. Will consider changing statin d/t high incidence of interactions with Zocor 80. Consider Lipitor 80 in light of prior STEMI. Fluid overload 07/14/2012 07/16/2012 Overview: Cont diuresis Post-op Afib (s/p DCCV x 1) 07/14/201207/01 Overview: Currently A-paced. On po amio - will continue for rate control of underlying rhythm as ICD threshold is set at 130 and AFib RVR is causing inappropriate firing of AICD. Started on coumadin- PT/INR supra-therapeutic at 3.8. Will hold coumadin tonight and monitor. No overt signs of bleeding. PMW cut without incident 07.18.2012. Other acute postoperative pain 07/13/2012 1 09/15/2011 Overview: IV Fentanyl PRN, [employer]ER, Lidoderm patches, Po pain meds Pulmonary insuff 07/13/2012 07/23/2020 Overview: On RA, wt down 2.1 kg from admisison. CXR . reveals probable small left pleural effusions. On IV lasix- changed to po. Encourage increased activity, PEP. Cardiac insufficiency following cardiac surgery 07/13/2012 07/14/2012 Overview: Per report CI 1.7 in OR, started IV Epi Wean for CI > 2.5 Intravascular volume depletion 07/13/2012 1 09/13/2011 Overview: Gentle fluid resuscitation PRN EF 35-40% SUMMARY 07/11/2012 07/23/2020 Overview: Principal Diagnosis: Fatigue, SOB, chest pain, MR. Preop: LVEF: 10-25% RVF: Normal Post -op: LVEF: 16% RVF: Normal Comorbidities: CAD, remote STEMI (1998 s/p multiple BMS to LCx (now with in stent restenosis)-IABP, AICD 1998, HTN (JUDAH), HPL, ex-smoker (1.5 ppd for 15 yrs, quit 07/04/12), GERD, migraines, depression, anxiety. Surgery: 07/13/2012: MVR (CE #27mm), preservation of papillary muscles and chordal apparatus CVICU: Afib w/RVR (resulting in inappropriate shocks x 6- EP consulted). RNF on POD 2 DVT prophylaxis: Encourage increased activity, PEP. Preop testing 07/08/2012 07/23/2020 Overview: Images from the original note were not included. [facility] Surgeon: Kvng Merlos M.D. Informed Consent Completed done STS Score: 0.6% CAD: no Is intended procedure a CABG: No H & P completed: Yes PA/LAT: Completed CT: N/A MRI: N/A LE US: N/A Cath: Yes - reviewed: Yes Echo:Completed EKG: Completed EF %: 28 PI's: N/A Carotid: N/A Mapping: N/A Dental: cleared. PFT's: Completed CBC, Coags, BMP, Mg, Phos Basename 07/12/12 0507 07/11/12 2220 WBC 8.50 6.78 HB 13.1 12.9 HCT 40.0 38.7 PLT 205 176 INR -- 1.2 APTT -- 29.9 NA 140 137 K 3.6 3.7 CHLOR 107 105 CO2 19* 22* BUN 12 13 CREAT 0.91 0.83 GLUC 113* 91 CA 8.8 8.4* MG 1.8 2.1 P -- -- UA: neg HCG:Completed ABO/ABO Confirmed: Yes Blood ordered: Yes SA Swab: Yes - results: neg Last Dose of Anticoagulation: asa 81 Op Note: N/A Pacemaker Check: Yes Consults: none DM: No Cardiac Surgical prep: N/A SIGNATURE: Cindi Ramírez MS, PAAbdoulayeC DATE of SERVICE: 07/08/2012 TIME of SERVICE: 1:24 PM mwa 07/12 Anemia 10/29/2011 07/23/2020 Overview: in 10/2011, s/p blood transfusions in 10/2011 Fitting and adjustment of orthopedic device 04/0107/23/2020 Urinary tract infection of 07/26/2004 07/23/2020 Remote STEMI (1998) 07/23/2020 Overview: 07.18.2012: On ASA, BB, ADELE. On Zocor 80 mg pre-op. Will consider starting an alternative statin therapy d/t multiple interactions with Zocor at higher doses. Cardiogenic shock 07/23/2020 Heart failure, systolic, acute on chronic 07/23/2020 Overview: Pre-op EF 10-25% preop, post-op EF 16%. No JVD, no LE edema, lungs clear, SR , SBP normotensive, wt below admission. On BB (Coreg), diuretic, low-dose ADELE (with parameters). Will monitor I&O's, wts. 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 EP consulted- will follow their recommendations (will continue po amio taper to control rate). Needs pacer check- Wednesday07.18.2012- will d/w EP about pacer check. H/o GERD 07/23/2020 Overview: 07.18.2012: Asymptomatic. On Protonix. documented as of this encounter (statuses as of 07/27/2022) [facility]10[facility] History of Past illness Narrative* Problem Noted Date Resolved Date Acute on chronic systolic (congestive) heart irving lure 06/15/2020 07/23/2020 Overview: Acute on chronic VT likely playing a role Echo 11/15/18: EF 35%, severely dilated LA, dilated RA, MVR (CE), trace MR, 2-3+ TR, RVSP 51 mmHg JOVITA 06/10: EF 30%, dilated LA, NASRA thrombus (1.7x1.7cm), 1+ MR, 4+TR. TTE 06/11: EF 27%. Cornell-Lang prosthetic mitral valve (size #27). There is trace (trace - 1+) mitral valve regurgitation. The peak gradient is 12 mmHg and the mean gradient is 5 mmHg. MV gradients recorded at 60bpm. 2-3+ TR. RVSP 63 mmHg. Improved after diuresis with IV Lasix on admission. Stable. Plan: Continue Entresto, carvedilol, spironolactone. 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 Ventricular tachycardia 06/08/2020 06/23/20 20 Overview: Recurrent, slow, hemodynamically stable VT around 107 bmp despite amiodarone VT ablation 06/10 aborted due to large NASRA thrombus. JOVITA 06/10: EF 30%, dilated LA, NASRA thrombus (1.7x1.7cm), 1+ MR, 4+TR. TTE 06/11: EF 27%. Cornell-Lang prosthetic mitral valve (size #27). There is trace (trace - 1+) mitral valve regurgitation. The peak gradient is 12 mmHg and the mean gradient is 5 mmHg. MV gradients recorded at 60bpm. 2-3+ TR. RVSP 63 mmHg. During Device check monitor zone added at 100 bpm to detect further slow VT Started on IV amio and IV lidocaine on the floor prior to transfer to CICU on 06/17 In ICU, she underwent programmed extrastimulation (440ms X 12, followed by 260ms and 260ms) terminating VT. Transfer to [facility] on 06/20 Plan: Continue amiodarone 400 mg BID and mexilitine 150 mg TID. Given large NASRA clot, would advise against cardioversion unless patient is unstable. VT ablation risky in setting of large NASRA thrombus. Plan to monitor patient over the weekend for recurrent VT. If she remains stable, likely discharge home on Wednesday Dyslipidemia, goal LDL below 70 07/17/2012 07/23/2020 Overview: 07.18.2012: Pre-op Lipid panel: TC 152, TC 265, HDL 39, LDL 60. On Zocor 80 mg pre-op. Will consider changing statin d/t high incidence of interactions with Zocor 80. Consider Lipitor 80 in light of prior STEMI. Fluid overload 07/14/2012 07/16/2012 Overview: Cont diuresis Post-op Afib (s/p DCCV x 1) 07/14/201207/01 Overview: Currently A-paced. On po amio - will continue for rate control of underlying rhythm as ICD threshold is set at 130 and AFib RVR is causing inappropriate firing of AICD. Started on coumadin- PT/INR supra-therapeutic at 3.8. Will hold coumadin tonight and monitor. No overt signs of bleeding. PMW cut without incident 07.18.2012. Other acute postoperative pain 07/13/2012 1 09/15/2011 Overview: IV Fentanyl PRN, [employer]ER, Lidoderm patches, Po pain meds Pulmonary insuff 07/13/2012 07/23/2020 Overview: On RA, wt down 2.1 kg from admisison. CXR .17 reveals probable small left pleural effusions. On IV lasix- changed to po. Encourage increased activity, PEP. Cardiac insufficiency following cardiac surgery 07/13/2012 07/14/2012 Overview: Per report CI 1.7 in OR, started IV Epi Wean for CI > 2.5 Intravascular volume depletion 07/13/2012 1 09/13/2011 Overview: Gentle fluid resuscitation PRN EF 35-40% SUMMARY 07/11/2012 07/23/2020 Overview: Principal Diagnosis: Fatigue, SOB, chest pain, MR. Preop: LVEF: 10-25% RVF: Normal Post -op: LVEF: 16% RVF: Normal Comorbidities: CAD, remote STEMI (1998 s/p multiple BMS to LCx (now with in stent restenosis)-IABP, AICD 1998, HTN (JUDAH), HPL, ex-smoker (1.5 ppd for 15 yrs, quit 07/04/12), GERD, migraines, depression, anxiety. Surgery: 07/13/2012: MVR (CE #27mm), preservation of papillary muscles and chordal apparatus CVICU: Afib w/RVR (resulting in inappropriate shocks x 6- EP consulted). RNF on POD 2 DVT prophylaxis: Encourage increased activity, PEP. Preop testing 07/08/2012 07/23/2020 Overview: Images from the original note were not included. [facility] Surgeon: Kvng Merlos M.D. Informed Consent Completed done STS Score: 0.6% CAD: no Is intended procedure a CABG: No H & P completed: Yes PA/LAT: Completed CT: N/A MRI: N/A LE US: N/A Cath: Yes - reviewed: Yes Echo:Completed EKG: Completed EF %: 28 PI's: N/A Carotid: N/A Mapping: N/A Dental: cleared. PFT's: Completed CBC, Coags, BMP, Mg, Phos Basename 07/12/12 0507 07/11/12 2220 WBC 8.50 6.78 HB 13.1 12.9 HCT 40.0 38.7 PLT 205 176 INR -- 1.2 APTT -- 29.9 NA 140 137 K 3.6 3.7 CHLOR 107 105 CO2 19* 22* BUN 12 13 CREAT 0.91 0.83 GLUC 113* 91 CA 8.8 8.4* MG 1.8 2.1 P -- -- UA: neg HCG:Completed ABO/ABO Confirmed: Yes Blood ordered: Yes SA Swab: Yes - results: neg Last Dose of Anticoagulation: asa 81 Op Note: N/A Pacemaker Check: Yes Consults: none DM: No Cardiac Surgical prep: N/A SIGNATURE: Cindi Ramírez MS, [email or web address] DATE of SERVICE: 07/08/2012 TIME of SERVICE: 1:24 PM mwa 07/12 Anemia 10/29/2011 07/23/2020 Overview: in 10/2011, s/p blood transfusions in 10/2011 Fitting and adjustment of orthopedic device 04/0107/23/2020 Urinary tract infection of 07/26/2004 07/23/2020 Remote STEMI (1998) 07/23/2020 Overview: 07.18.2012: On ASA, BB, ADELE. On Zocor 80 mg pre-op. Will consider starting an alternative statin therapy d/t multiple interactions with Zocor at higher doses. Cardiogenic shock 07/23/2020 Heart failure, systolic, acute on chronic 07/23/2020 Overview: Pre-op EF 10-25% preop, post-op EF 16%. No JVD, no LE edema, lungs clear, SR , SBP normotensive, wt below admission. On BB (Coreg), diuretic, low-dose ADELE (with parameters). Will monitor I&O's, wts. 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 EP consulted- will follow their recommendations (will continue po amio taper to control rate). Needs pacer check- Wednesday07.18.2012- will d/w EP about pacer check. H/o GERD 07/23/2020 Overview: 07.18.2012: Asymptomatic. On Protonix. documented as of this encounter (statuses as of 08/30/2022) [facility] History of Past illness Narrative* Problem Noted Date Resolved Date Acute on chronic systolic (congestive) heart irving lure 06/15/2020 07/23/2020 Overview: Acute on chronic VT likely playing a role Echo 11/15/18: EF 35%, severely dilated LA, dilated RA, MVR (CE), trace MR, 2-3+ TR, RVSP 51 mmHg JOVITA 06/10: EF 30%, dilated LA, NASRA thrombus (1.7x1.7cm), 1+ MR, 4+TR. TTE 06/11: EF 27%. Cornell-Lang prosthetic mitral valve (size #27). There is trace (trace - 1+) mitral valve regurgitation. The peak gradient is 12 mmHg and the mean gradient is 5 mmHg. MV gradients recorded at 60bpm. 2-3+ TR. RVSP 63 mmHg. Improved after diuresis with IV Lasix on admission. Stable. Plan: Continue Entresto, carvedilol, spironolactone. 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 Ventricular tachycardia 06/08/2020 06/23/20 20 Overview: Recurrent, slow, hemodynamically stable VT around 107 bmp despite amiodarone VT ablation 06/10 aborted due to large NASRA thrombus. JOVITA 06/10: EF 30%, dilated LA, NASRA thrombus (1.7x1.7cm), 1+ MR, 4+TR. TTE 06/11: EF 27%. Cornell-Lang prosthetic mitral valve (size #27). There is trace (trace - 1+) mitral valve regurgitation. The peak gradient is 12 mmHg and the mean gradient is 5 mmHg. MV gradients recorded at 60bpm. 2-3+ TR. RVSP 63 mmHg. During Device check monitor zone added at 100 bpm to detect further slow VT Started on IV amio and IV lidocaine on the floor prior to transfer to CICU on 06/17 In ICU, she underwent programmed extrastimulation (440ms X 12, followed by 260ms and 260ms) terminating VT. Transfer to [facility] on 06/20 Plan: Continue amiodarone 400 mg BID and mexilitine 150 mg TID. Given large NASRA clot, would advise against cardioversion unless patient is unstable. VT ablation risky in setting of large NASRA thrombus. Plan to monitor patient over the weekend for recurrent VT. If she remains stable, likely discharge home on Wednesday Dyslipidemia, goal LDL below 70 07/17/2012 07/23/2020 Overview: 07.18.2012: Pre-op Lipid panel: TC 152, TC 265, HDL 39, LDL 60. On Zocor 80 mg pre-op. Will consider changing statin d/t high incidence of interactions with Zocor 80. Consider Lipitor 80 in light of prior STEMI. Fluid overload 07/14/2012 07/16/2012 Overview: Cont diuresis Post-op Afib (s/p DCCV x 1) 07/14/201207/01 Overview: Currently A-paced. On po amio - will continue for rate control of underlying rhythm as ICD threshold is set at 130 and AFib RVR is causing inappropriate firing of AICD. Started on coumadin- PT/INR supra-therapeutic at 3.8. Will hold coumadin tonight and monitor. No overt signs of bleeding. PMW cut without incident 07.18.2012. Other acute postoperative pain 07/13/2012 1 09/15/2011 Overview: IV Fentanyl PRN, [employer] TE[employer]ER, Lidoderm patches, Po pain meds Pulmonary insuff 07/13/2012 07/23/2020 Overview: On RA, wt down 2.1 kg from admisison. CXR 07.16 reveals probable small left pleural effusions. On IV lasix- changed to po. Encourage increased activity, PEP. Cardiac insufficiency following cardiac surgery 07/13/2012 07/14/2012 Overview: Per report CI 1.7 in OR, started IV Epi Wean for CI > 2.5 Intravascular volume depletion 07/13/2012 1 09/13/2011 Overview: Gentle fluid resuscitation PRN EF 35-40% SUMMARY 07/11/2012 07/23/2020 Overview: Principal Diagnosis: Fatigue, SOB, chest pain, MR. Preop: LVEF: 10-25% RVF: Normal Post -op: LVEF: 16% RVF: Normal Comorbidities: CAD, remote STEMI (1998 s/p multiple BMS to LCx (now with in stent restenosis)-IABP, AICD 1998, HTN (JUDAH), HPL, ex-smoker (1.5 ppd for 15 yrs, quit 07/04/12), GERD, migraines, depression, anxiety. Surgery: 07/13/2012: MVR (CE #27mm), preservation of papillary muscles and chordal apparatus CVICU: Afib w/RVR (resulting in inappropriate shocks x 6- EP consulted). RNF on POD 2 DVT prophylaxis: Encourage increased activity, PEP. Preop testing 07/08/2012 07/23/2020 Overview: Images from the original note were not included. [facility] Surgeon: Kvng Merlos M.D. Informed Consent Completed done STS Score: 0.6% CAD: no Is intended procedure a CABG: No H & P completed: Yes PA/LAT: Completed CT: N/A MRI: N/A LE US: N/A Cath: Yes - reviewed: Yes Echo:Completed EKG: Completed EF %: 28 PI's: N/A Carotid: N/A Mapping: N/A Dental: cleared. PFT's: Completed CBC, Coags, BMP, Mg, Phos Basename 07/12/12 0507 07/11/12 2220 WBC 8.50 6.78 HB 13.1 12.9 HCT 40.0 38.7 PLT 205 176 INR -- 1.2 APTT -- 29.9 NA 140 137 K 3.6 3.7 CHLOR 107 105 CO2 19* 22* BUN 12 13 CREAT 0.91 0.83 GLUC 113* 91 CA 8.8 8.4* MG 1.8 2.1 P -- -- UA: neg HCG:Completed ABO/ABO Confirmed: Yes Blood ordered: Yes SA Swab: Yes - results: neg Last Dose of Anticoagulation: asa 81 Op Note: N/A Pacemaker Check: Yes Consults: none DM: No Cardiac Surgical prep: N/A SIGNATURE: Cindi Ramírez MS, PAAbdoulayeC DATE of SERVICE: 07/08/2012 TIME of SERVICE: 1:24 PM mwa 07/12 Anemia 10/29/2011 07/23/2020 Overview: in 10/2011, s/p blood transfusions in 10/2011 Fitting and adjustment of orthopedic device 04/0107/23/2020 Urinary tract infection of 07/26/2004 07/23/2020 Remote STEMI (1998) 07/23/2020 Overview: 07.18.2012: On ASA, BB, ADELE. On Zocor 80 mg pre-op. Will consider starting an alternative statin therapy d/t multiple interactions with Zocor at higher doses. Cardiogenic shock 07/23/2020 Heart failure, systolic, acute on chronic 07/23/2020 Overview: Pre-op EF 10-25% preop, post-op EF 16%. No JVD, no LE edema, lungs clear, SR , SBP normotensive, wt below admission. On BB (Coreg), diuretic, low-dose ADELE (with parameters). Will monitor I&O's, wts. (mitral regurgitation) 2011 Overview: Severe 4+ 07/13/2012: MVR (CE #27mm), preservation of papillary muscles and chordal apparatus Dual chamber H[employer]IVER-D 07/23/2020 Overview: On 07.14.12 -fired x6 for SVT/AF HRs 140-150 (pacer set at 130- any HR over that it recognizes as VT). EP consulted- will follow their recommendations (will continue po amio taper to control rate). Needs pacer check- Wednesday07.18.2012- will d/w EP about pacer check. H/o GERD 07/23/2020 Overview: 07.18.2012: Asymptomatic. On Protonix. documented as of this encounter (statuses as of 09/11/2022) [facility]10-17-2020 History of Past illness Narrative* Problem Noted Date Resolved Date Acute on chronic systolic (congestive) heart irving lure 06/15/2020 07/23/2020 Overview: Acute on chronic VT likely playing a role Echo 11/15/18: EF 35%, severely dilated LA, dilated RA, MVR (CE), trace MR, 2-3+ TR, RVSP 51 mmHg JOVITA 06/10: EF 30%, dilated LA, NASRA thrombus (1.7x1.7cm), 1+ MR, 4+TR. TTE 06/11: EF 27%. Cornell-Lang prosthetic mitral valve (size #27). There is trace (trace - 1+) mitral valve regurgitation. The peak gradient is 12 mmHg and the mean gradient is 5 mmHg. MV gradients recorded at 60bpm. 2-3+ TR. RVSP 63 mmHg. Improved after diuresis with IV Lasix on admission. Stable. Plan: Continue Entresto, carvedilol, spironolactone. 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 Ventricular tachycardia 06/08/2020 06/23/20 Overview: Recurrent, slow, hemodynamically stable VT around 107 bmp despite amiodarone VT ablation 06/10 aborted due to large NASRA thrombus. JOVITA 06/10: EF 30%, dilated LA, NASRA thrombus (1.7x1.7cm), 1+ MR, 4+TR. TTE 06/11: EF 27%. Cornell-Lang prosthetic mitral valve (size #27). There is trace (trace - 1+) mitral valve regurgitation. The peak gradient is 12 mmHg and the mean gradient is 5 mmHg. MV gradients recorded at 60bpm. 2-3+ TR. RVSP 63 mmHg. During Device check monitor zone added at 100 bpm to detect further slow VT Started on IV amio and IV lidocaine on the floor prior to transfer to CICU on 06/17 In ICU, she underwent programmed extrastimulation (440ms X 12, followed by 260ms and 260ms) terminating VT. Transfer to [facility] on 06/20 Plan: Continue amiodarone 400 mg BID and mexilitine 150 mg TID. Given large NASRA clot, would advise against cardioversion unless patient is unstable. VT ablation risky in setting of large NASRA thrombus. Plan to monitor patient over the weekend for recurrent VT. If she remains stable, likely discharge home on Wednesday Dyslipidemia, goal LDL below 70 07/17/2012 07/23/2020 Overview: 07.18.2012: Pre-op Lipid panel: TC 152, TC 265, HDL 39, LDL 60. On Zocor 80 mg pre-op. Will consider changing statin d/t high incidence of interactions with Zocor 80. Consider Lipitor 80 in light of prior STEMI. Fluid overload 07/14/2012 07/16/2012 Overview: Cont diuresis Post-op Afib (s/p DCCV x 1) 07/14/201207/01 Overview: Currently A-paced. On po amio - will continue for rate control of underlying rhythm as ICD threshold is set at 130 and AFib RVR is causing inappropriate firing of AICD. Started on coumadin- PT/INR supra-therapeutic at 3.8. Will hold coumadin tonight and monitor. No overt signs of bleeding. PMW cut without incident 07.18.2012. Other acute postoperative pain 07/13/2012 1 09/15/2011 Overview: IV Fentanyl PRN, [employer], Lidoderm patches, Po pain meds Pulmonary insuff 07/13/2012 07/23/2020 Overview: On RA, wt down 2.1 kg from admisison. CXR 07.16 reveals probable small left pleural effusions. On IV lasix- changed to po. Encourage increased activity, PEP. Cardiac insufficiency following cardiac surgery 07/13/2012 07/14/2012 Overview: Per report CI 1.7 in OR, started IV Epi Wean for CI > 2.5 Intravascular volume depletion 07/13/2012 1 09/13/2011 Overview: Gentle fluid resuscitation PRN EF 35-40% SUMMARY 07/11/2012 07/23/2020 Overview: Principal Diagnosis: Fatigue, SOB, chest pain, MR. Preop: LVEF: 10-25% RVF: Normal Post -op: LVEF: 16% RVF: Normal Comorbidities: CAD, remote STEMI (1998 s/p multiple BMS to LCx (now with in stent restenosis)-IABP, AICD 1998, HTN (JUDAH), HPL, ex-smoker (1.5 ppd for 15 yrs, quit 07/04/12), GERD, migraines, depression, anxiety. Surgery: 07/13/2012: MVR (CE #27mm), preservation of papillary muscles and chordal apparatus CVICU: Afib w/RVR (resulting in inappropriate shocks x 6- EP consulted). RNF on POD 2 DVT prophylaxis: Encourage increased activity, PEP. Preop testing 07/08/2012 07/23/2020 Overview: Images from the original note were not included. [facility] Surgeon: Kvng Merlos M.D. Informed Consent Completed done STS Score: 0.6% CAD: no Is intended procedure a CABG: No H & P completed: Yes PA/LAT: Completed CT: N/A MRI: N/A LE US: N/A Cath: Yes - reviewed: Yes Echo:Completed EKG: Completed EF %: 28 PI's: N/A Carotid: N/A Mapping: N/A Dental: cleared. PFT's: Completed CBC, Coags, BMP, Mg, Phos Basename 07/12/12 0507 07/11/12 2220 WBC 8.50 6.78 HB 13.1 12.9 HCT 40.0 38.7 PLT 205 176 INR -- 1.2 APTT -- 29.9 NA 140 137 K 3.6 3.7 CHLOR 107 105 CO2 19* 22* BUN 12 13 CREAT 0.91 0.83 GLUC 113* 91 CA 8.8 8.4* MG 1.8 2.1 P -- -- UA: neg HCG:Completed ABO/ABO Confirmed: Yes Blood ordered: Yes SA Swab: Yes - results: neg Last Dose of Anticoagulation: asa 81 Op Note: N/A Pacemaker Check: Yes Consults: none DM: No Cardiac Surgical prep: N/A SIGNATURE: Cindi Ramírez MS, PAAbdoulayeC DATE of SERVICE: 07/08/2012 TIME of SERVICE: 1:24 PM mwa 07/12 Anemia 10/29/2011 07/23/2020 Overview: in 10/2011, s/p blood transfusions in 10/2011 Fitting and adjustment of orthopedic device 04/0107/23/2020 Urinary tract infection of 07/26/2004 07/23/2020 Remote STEMI (1998) 07/23/2020 Overview: 07.18.2012: On ASA, BB, ADELE. On Zocor 80 mg pre-op. Will consider starting an alternative statin therapy d/t multiple interactions with Zocor at higher doses. Cardiogenic shock 07/23/2020 Heart failure, systolic, acute on chronic 07/23/2020 Overview: Pre-op EF 10-25% preop, post-op EF 16%. No JVD, no LE edema, lungs clear, SR , SBP normotensive, wt below admission. On BB (Coreg), diuretic, low-dose ADELE (with parameters). Will monitor I&O's, wts. 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 EP consulted- will follow their recommendations (will continue po amio taper to control rate). Needs pacer check- Wednesday07.18.2012- will d/w EP about pacer check. H/o GERD 07/23/2020 Overview: 07.18.2012: Asymptomatic. On Protonix. documented as of this encounter (statuses as of 11/28/2022) [facility]10-17[facility]2020 History of Past illness Narrative* Problem Noted Date Resolved Date Acute on chronic systolic (congestive) heart irving lure 06/15/2020 07/23/2020 Overview: Acute on chronic VT likely playing a role Echo 11/15/18: EF 35%, severely dilated LA, dilated RA, MVR (CE), trace MR, 2-3+ TR, RVSP 51 mmHg JOVITA 06/10: EF 30%, dilated LA, NASRA thrombus (1.7x1.7cm), 1+ MR, 4+TR. TTE 06/11: EF 27%. Cornell-Lang prosthetic mitral valve (size #27). There is trace (trace - 1+) mitral valve regurgitation. The peak gradient is 12 mmHg and the mean gradient is 5 mmHg. MV gradients recorded at 60bpm. 2-3+ TR. RVSP 63 mmHg. Improved after diuresis with IV Lasix on admission. Stable. Plan: Continue Entresto, carvedilol, spironolactone. 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 Ventricular tachycardia 06/08/2020 06/23/20 Overview: Recurrent, slow, hemodynamically stable VT around 107 bmp despite amiodarone VT ablation 06/10 aborted due to large NASRA thrombus. JOVITA 06/10: EF 30%, dilated LA, NASRA thrombus (1.7x1.7cm), 1+ MR, 4+TR. TTE 06/11: EF 27%. Cornell-Lang prosthetic mitral valve (size #27). There is trace (trace - 1+) mitral valve regurgitation. The peak gradient is 12 mmHg and the mean gradient is 5 mmHg. MV gradients recorded at 60bpm. 2-3+ TR. RVSP 63 mmHg. During Device check monitor zone added at 100 bpm to detect further slow VT Started on IV amio and IV lidocaine on the floor prior to transfer to CICU on 06/17 In ICU, she underwent programmed extrastimulation (440ms X 12, followed by 260ms and 260ms) terminating VT. Transfer to [facility] on 06/20 Plan: Continue amiodarone 400 mg BID and mexilitine 150 mg TID. Given large NASRA clot, would advise against cardioversion unless patient is unstable. VT ablation risky in setting of large NASRA thrombus. Plan to monitor patient over the weekend for recurrent VT. If she remains stable, likely discharge home on Wednesday Dyslipidemia, goal LDL below 70 07/17/2012 07/23/2020 Overview: 07.18.2012: Pre-op Lipid panel: TC 152, TC 265, HDL 39, LDL 60. On Zocor 80 mg pre-op. Will consider changing statin d/t high incidence of interactions with Zocor 80. Consider Lipitor 80 in light of prior STEMI. Fluid overload 07/14/2012 07/16/2012 Overview: Cont diuresis Post-op Afib (s/p DCCV x 1) 07/14/201207/01 Overview: Currently A-paced. On po amio - will continue for rate control of underlying rhythm as ICD threshold is set at 130 and AFib RVR is causing inappropriate firing of AICD. Started on coumadin- PT/INR supra-therapeutic at 3.8. Will hold coumadin tonight and monitor. No overt signs of bleeding. PMW cut without incident 07.18.2012. Other acute postoperative pain 07/13/2012 1 09/15/2011 Overview: IV Fentanyl PRN, [employer], Lidoderm patches, Po pain meds Pulmonary insuff 07/13/2012 07/23/2020 Overview: On RA, wt down 2.1 kg from admisison. CXR 07.16 reveals probable small left pleural effusions. On IV lasix- changed to po. Encourage increased activity, PEP. Cardiac insufficiency following cardiac surgery 07/13/2012 07/14/2012 Overview: Per report CI 1.7 in OR, started IV Epi Wean for CI > 2.5 Intravascular volume depletion 07/13/2012 1 09/13/2011 Overview: Gentle fluid resuscitation PRN EF 35-40% SUMMARY 07/11/2012 07/23/2020 Overview: Principal Diagnosis: Fatigue, SOB, chest pain, MR. Preop: LVEF: 10-25% RVF: Normal Post -op: LVEF: 16% RVF: Normal Comorbidities: CAD, remote STEMI (1998 s/p multiple BMS to LCx (now with in stent restenosis)-IABP, AICD 1998, HTN (JUDAH), HPL, ex-smoker (1.5 ppd for 15 yrs, quit 07/04/12), GERD, migraines, depression, anxiety. Surgery: 07/13/2012: MVR (CE #27mm), preservation of papillary muscles and chordal apparatus CVICU: Afib w/RVR (resulting in inappropriate shocks x 6- EP consulted). RNF on POD 2 DVT prophylaxis: Encourage increased activity, PEP. Preop testing 07/08/2012 07/23/2020 Overview: Images from the original note were not included. [facility] Surgeon: Kvng Merlos M.D. Informed Consent Completed done STS Score: 0.6% CAD: no Is intended procedure a CABG: No H & P completed: Yes PA/LAT: Completed CT: N/A MRI: N/A LE US: N/A Cath: Yes - reviewed: Yes Echo:Completed EKG: Completed EF %: 28 PI's: N/A Carotid: N/A Mapping: N/A Dental: cleared. PFT's: Completed CBC, Coags, BMP, Mg, Phos Basename 07/12/12 0507 07/11/12 2220 WBC 8.50 6.78 HB 13.1 12.9 HCT 40.0 38.7 PLT 205 176 INR -- 1.2 APTT -- 29.9 NA 140 137 K 3.6 3.7 CHLOR 107 105 CO2 19* 22* BUN 12 13 CREAT 0.91 0.83 GLUC 113* 91 CA 8.8 8.4* MG 1.8 2.1 P -- -- UA: neg HCG:Completed ABO/ABO Confirmed: Yes Blood ordered: Yes SA Swab: Yes - results: neg Last Dose of Anticoagulation: asa 81 Op Note: N/A Pacemaker Check: Yes Consults: none DM: No Cardiac Surgical prep: N/A SIGNATURE: Cindi Ramírez MS, XIOMY DATE of SERVICE: 07/08/2012 TIME of SERVICE: 1:24 PM mwa 07/12 Anemia 10/29/2011 07/23/2020 Overview: in 10/2011, s/p blood transfusions in 10/2011 Fitting and adjustment of orthopedic device 04/0107/23/2020 Urinary tract infection of 07/26/2004 07/23/2020 Remote STEMI (1998) 07/23/2020 Overview: 07.18.2012: On ASA, BB, ADELE. On Zocor 80 mg pre-op. Will consider starting an alternative statin therapy d/t multiple interactions with Zocor at higher doses. Cardiogenic shock 07/23/2020 Heart failure, systolic, acute on chronic 07/23/2020 Overview: Pre-op EF 10-25% preop, post-op EF 16%. No JVD, no LE edema, lungs clear, SR , SBP normotensive, wt below admission. On BB (Coreg), diuretic, low-dose ADELE (with parameters). Will monitor I&O's, wts. 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 EP consulted- will follow their recommendations (will continue po amio taper to control rate). Needs pacer check- Wednesday07.18.2012- will d/w EP about pacer check. H/o GERD 07/23/2020 Overview: 07.18.2012: Asymptomatic. On Protonix. documented as of this encounter (statuses as of 03/05/2023) [facility] History of Past illness Narrative* Problem Noted Date Diagnosed Date Resolved Date Acute on chronic systolic (c ongestive) heart failure 06/15/2020 07/23/2020 Overview: Acute on chronic VT likely playing a role Echo 11/15/18: EF 35%, severely dilated LA, dilated RA, MVR (CE), trace MR, 2-3+ TR, RVSP 51 mmHg JOVITA 06/10: EF 30%, dilated LA, NASRA thrombus (1.7x1.7cm), 1+ MR, 4+TR. TTE 06/11: EF 27%. Cronell-Lang prosthetic mitral valve (size #27). There is trace (trace - 1+) mitral valve regurgitation. The peak gradient is 12 mmHg and the mean gradient is 5 mmHg. MV gradients recorded at 60bpm. 2-3+ TR. RVSP 63 mmHg. Improved after diuresis with IV Lasix on admission. Stable. Plan: Continue Entresto, carvedilol, spironolactone. 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 Ventricular tachycardia 06/08/202005/31 Overview: Recurrent, slow, hemodynamically stable VT around 107 bmp despite amiodarone VT ablation 06/10 aborted due to large NASRA thrombus. JOVITA 06/10: EF 30%, dilated LA, NASRA thrombus (1.7x1.7cm), 1+ MR, 4+TR. TTE 06/11: EF 27%. Cornell-Lang prosthetic mitral valve (size #27). There is trace (trace - 1+) mitral valve regurgitation. The peak gradient is 12 mmHg and the mean gradient is 5 mmHg. MV gradients recorded at 60bpm. 2-3+ TR. RVSP 63 mmHg. During Device check monitor zone added at 100 bpm to detect further slow VT Started on IV amio and IV lidocaine on the floor prior to transfer to CICU on 06/17 In ICU, she underwent programmed extrastimulation (440ms X 12, followed by 260ms and 260ms) terminating VT. Transfer to [facility] on 06/20 Plan: Continue amiodarone 400 mg BID and mexilitine 150 mg TID. Given large NASRA clot, would advise against cardioversion unless patient is unstable. VT ablation risky in setting of large NASRA thrombus. Plan to monitor patient over the weekend for recurrent VT. If she remains stable, likely discharge home on Wednesday Dyslipidemia, goal LDL below 70 07/17/2012 07/23/2020 Overview: 07.18.2012: Pre-op Lipid panel: TC 152, TC 265, HDL 39, LDL 60. On Zocor 80 mg pre-op. Will consider changing statin d/t high incidence of interactions with Zocor 80. Consider Lipitor 80 in light of prior STEMI. Fluid overload 07/14/2012 07/16/2012 Overview: Cont diuresis Post-op Afib (s/p DCCV x 1) 07/14/2012 07/23/2020 Overview: Currently A-paced. On po amio - will continue for rate control of underlying rhythm as ICD threshold is set at 130 and AFib RVR is causing inappropriate firing of AICD. Started on coumadin- PT/INR supra-therapeutic at 3.8. Will hold coumadin tonight and monitor. No overt signs of bleeding. PMW cut without incident 07.18.2012. 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 CXR 07.16 reveals probable small left pleural effusions. On IV lasix- changed to po. Encourage increased activity, PEP. Cardiac insufficiency follow ing cardiac surgery 07/13/2012 07/14/2012 Overview: Per report CI 1.7 in OR, started IV Epi Wean for CI > 2.5 Intravascular volume depletion 07/13/2012 07/14/2012 Overview: Gentle fluid resuscitation PRN EF 35-40% SUMMARY 07/11/2012 07/23/2020 Overview: Principal Diagnosis: Fatigue, SOB, chest pain, MR. Preop: LVEF: 10-25% RVF: Normal Post -op: LVEF: 16% RVF: Normal Comorbidities: CAD, remote STEMI (1998 s/p multiple BMS to LCx (now with in stent restenosis)-IABP, AICD 1998, HTN (JUDAH), HPL, ex-smoker (1.5 ppd for 15 yrs, quit 07/04/12), GERD, migraines, depression, anxiety. Surgery: 07/13/2012: MVR (CE #27mm), preservation of papillary muscles and chordal apparatus CVICU: Afib w/RVR (resulting in inappropriate shocks x 6- EP consulted). RNF on POD 2 DVT prophylaxis: Encourage increased activity, PEP. Preop testing 07/08/2012 07/23/2020 Overview: Images from the original note were not included. [facility] Surgeon: Kvng Merlos M.D. Informed Consent Completed done STS Score: 0.6% CAD: no Is intended procedure a CABG: No H & P completed: Yes PA/LAT: Completed CT: N/A MRI: N/A LE US: N/A Cath: Yes - reviewed: Yes Echo:Completed EKG: Completed EF %: 28 PI's: N/A Carotid: N/A Mapping: N/A Dental: cleared. PFT's: Completed CBC, Coags, BMP, Mg, Phos Basename 07/12/12 0507 07/11/12 2220 WBC 8.50 6.78 HB 13.1 12.9 HCT 40.0 38.7 PLT 205 176 INR -- 1.2 APTT -- 29.9 NA 140 137 K 3.6 3.7 CHLOR 107 105 CO2 19* 22* BUN 12 13 CREAT 0.91 0.83 GLUC 113* 91 CA 8.8 8.4* MG 1.8 2.1 P -- -- UA: neg HCG:Completed ABO/ABO Confirmed: Yes Blood ordered: Yes SA Swab: Yes - results: neg Last Dose of Anticoagulation: asa 81 Op Note: N/A Pacemaker Check: Yes Consults: none DM: No Cardiac Surgical prep: N/A SIGNATURE: Cindi Ramírez MS, PARosemarie DATE of SERVICE: 07/08/2012 TIME of SERVICE: 1:24 PM mwa 07/12 Anemia 10/29/2011 07/23/2020 Overview: in 10/2011, s/p blood transfusions in 10/2011 Fitting and adjustment of orthopedic device 04/29/2010 07/23/2020 Urinary tract infection of 07/26/2004 07/23/2020 Remote STEMI (1998) 07/23/20 20 Overview: 07.18.2012: On ASA, BB, ADELE. On Zocor 80 mg pre-op. Will consider starting an alternative statin therapy d/t multiple interactions with Zocor at higher doses. Cardiogenic shock 07/23/2020 Heart failure, systolic, acute on chronic 07/23/2020 Overview: Pre-op EF 10-25% preop, post-op EF 16%. No JVD, no LE edema, lungs clear, SR , SBP normotensive, wt below admission. On BB (Coreg), diuretic, low-dose ADELE (with parameters). Will monitor I&O's, wts. 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 EP consulted- will follow their recommendations (will continue po amio taper to control rate). Needs pacer check- Wednesday07.18.2012- will d/w EP about pacer check. H/o GERD 07/23/2020 Overview: 07.18.2012: Asymptomatic. On Protonix. documented as of this encounter (statuses as of 03/29/2023) [facility] History of Past illness Narrative* Problem Noted Date Diagnosed Date Resolved Date Acute on chronic systolic (c ongestive) heart failure 06/15/2020 07/23/2020 Overview: Acute on chronic VT likely playing a role Echo 11/15/18: EF 35%, severely dilated LA, dilated RA, MVR (CE), trace MR, 2-3+ TR, RVSP 51 mmHg JOVITA 06/10: EF 30%, dilated LA, NASRA thrombus (1.7x1.7cm), 1+ MR, 4+TR. TTE 06/11: EF 27%. Cornell-Lang prosthetic mitral valve (size #27). There is trace (trace - 1+) mitral valve regurgitation. The peak gradient is 12 mmHg and the mean gradient is 5 mmHg. MV gradients recorded at 60bpm. 2-3+ TR. RVSP 63 mmHg. Improved after diuresis with IV Lasix on admission. Stable. Plan: Continue Entresto, carvedilol, spironolactone. 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 Ventricular tachycardia 06/08/202005/31 Overview: Recurrent, slow, hemodynamically stable VT around 107 bmp despite amiodarone VT ablation 06/10 aborted due to large NASRA thrombus. JOVITA 06/10: EF 30%, dilated LA, NASRA thrombus (1.7x1.7cm), 1+ MR, 4+TR. TTE 06/11: EF 27%. Cornell-Lang prosthetic mitral valve (size #27). There is trace (trace - 1+) mitral valve regurgitation. The peak gradient is 12 mmHg and the mean gradient is 5 mmHg. MV gradients recorded at 60bpm. 2-3+ TR. RVSP 63 mmHg. During Device check monitor zone added at 100 bpm to detect further slow VT Started on IV amio and IV lidocaine on the floor prior to transfer to CICU on 06/17 In ICU, she underwent programmed extrastimulation (440ms X 12, followed by 260ms and 260ms) terminating VT. Transfer to [facility] on 06/20 Plan: Continue amiodarone 400 mg BID and mexilitine 150 mg TID. Given large NASRA clot, would advise against cardioversion unless patient is unstable. VT ablation risky in setting of large NASRA thrombus. Plan to monitor patient over the weekend for recurrent VT. If she remains stable, likely discharge home on Wednesday Dyslipidemia, goal LDL below 70 07/17/2012 07/23/2020 Overview: 07.18.2012: Pre-op Lipid panel: TC 152, TC 265, HDL 39, LDL 60. On Zocor 80 mg pre-op. Will consider changing statin d/t high incidence of interactions with Zocor 80. Consider Lipitor 80 in light of prior STEMI. Fluid overload 07/14/2012 07/16/2012 Overview: Cont diuresis Post-op Afib (s/p DCCV x 1) 07/14/2012 07/23/2020 Overview: Currently A-paced. On po amio - will continue for rate control of underlying rhythm as ICD threshold is set at 130 and AFib RVR is causing inappropriate firing of AICD. Started on coumadin- PT/INR supra-therapeutic at 3.8. Will hold coumadin tonight and monitor. No overt signs of bleeding. PMW cut without incident 07.18.2012. 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 CXR 07.16 reveals probable small left pleural effusions. On IV lasix- changed to po. Encourage increased activity, PEP. Cardiac insufficiency follow ing cardiac surgery 07/13/2012 07/14/2012 Overview: Per report CI 1.7 in OR, started IV Epi Wean for CI > 2.5 Intravascular volume depletion 07/13/2012 07/14/2012 Overview: Gentle fluid resuscitation PRN EF 35-40% SUMMARY 07/11/2012 07/23/2020 Overview: Principal Diagnosis: Fatigue, SOB, chest pain, MR. Preop: LVEF: 10-25% RVF: Normal Post -op: LVEF: 16% RVF: Normal Comorbidities: CAD, remote STEMI (1998 s/p multiple BMS to LCx (now with in stent restenosis)-IABP, AICD 1998, HTN (JUDAH), HPL, ex-smoker (1.5 ppd for 15 yrs, quit 07/04/12), GERD, migraines, depression, anxiety. Surgery: 07/13/2012: MVR (CE #27mm), preservation of papillary muscles and chordal apparatus CVICU: Afib w/RVR (resulting in inappropriate shocks x 6- EP consulted). RNF on POD 2 DVT prophylaxis: Encourage increased activity, PEP. Preop testing 07/08/2012 07/23/2020 Overview: Images from the original note were not included. [facility] Surgeon: Kvng Merlos M.D. Informed Consent Completed done STS Score: 0.6% CAD: no Is intended procedure a CABG: No H & P completed: Yes PA/LAT: Completed CT: N/A MRI: N/A LE US: N/A Cath: Yes - reviewed: Yes Echo:Completed EKG: Completed EF %: 28 PI's: N/A Carotid: N/A Mapping: N/A Dental: cleared. PFT's: Completed CBC, Coags, BMP, Mg, Phos Basename 07/12/12 0507 07/11/12 2220 WBC 8.50 6.78 HB 13.1 12.9 HCT 40.0 38.7 PLT 205 176 INR -- 1.2 APTT -- 29.9 NA 140 137 K 3.6 3.7 CHLOR 107 105 CO2 19* 22* BUN 12 13 CREAT 0.91 0.83 GLUC 113* 91 CA 8.8 8.4* MG 1.8 2.1 P -- -- UA: neg HCG:Completed ABO/ABO Confirmed: Yes Blood ordered: Yes SA Swab: Yes - results: neg Last Dose of Anticoagulation: asa 81 Op Note: N/A Pacemaker Check: Yes Consults: none DM: No Cardiac Surgical prep: N/A SIGNATURE: Cindi Ramírez MS, PARosemarie DATE of SERVICE: 07/08/2012 TIME of SERVICE: 1:24 PM mwa 07/12 Anemia 10/29/2011 07/23/2020 Overview: in 10/2011, s/p blood transfusions in 10/2011 Fitting and adjustment of orthopedic device 04/29/2010 07/23/2020 Urinary tract infection of 07/26/2004 07/23/2020 Remote STEMI (1998) 07/23/20 20 Overview: 07.18.2012: On ASA, BB, ADELE. On Zocor 80 mg pre-op. Will consider starting an alternative statin therapy d/t multiple interactions with Zocor at higher doses. Cardiogenic shock 07/23/2020 Heart failure, systolic, acute on chronic 07/23/2020 Overview: Pre-op EF 10-25% preop, post-op EF 16%. No JVD, no LE edema, lungs clear, SR , SBP normotensive, wt below admission. On BB (Coreg), diuretic, low-dose ADELE (with parameters). Will monitor I&O's, wts. 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 EP consulted- will follow their recommendations (will continue po amio taper to control rate). Needs pacer check- Wednesday07.18.2012- will d/w EP about pacer check. H/o GERD 07/23/2020 Overview: 07.18.2012: Asymptomatic. On Protonix. documented as of this encounter (statuses as of 04/10/2023) [facility]10-17-2020 History of Past illness Narrative* Problem Noted Date Diagnosed Date Resolved Date Acute on chronic systolic (c ongestive) heart failure 06/15/2020 07/23/2020 Overview: Acute on chronic VT likely playing a role Echo 11/15/18: EF 35%, severely dilated LA, dilated RA, MVR (CE), trace MR, 2-3+ TR, RVSP 51 mmHg JOVITA 06/10: EF 30%, dilated LA, NASRA thrombus (1.7x1.7cm), 1+ MR, 4+TR. TTE 06/11: EF 27%. Cornell-Lang prosthetic mitral valve (size #27). There is trace (trace - 1+) mitral valve regurgitation. The peak gradient is 12 mmHg and the mean gradient is 5 mmHg. MV gradients recorded at 60bpm. 2-3+ TR. RVSP 63 mmHg. Improved after diuresis with IV Lasix on admission. Stable. Plan: Continue Entresto, carvedilol, spironolactone. 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 Ventricular tachycardia 06/08/202005/31 Overview: Recurrent, slow, hemodynamically stable VT around 107 bmp despite amiodarone VT ablation 06/10 aborted due to large NASRA thrombus. JOVITA 06/10: EF 30%, dilated LA, NASRA thrombus (1.7x1.7cm), 1+ MR, 4+TR. TTE 06/11: EF 27%. Cornell-Lang prosthetic mitral valve (size #27). There is trace (trace - 1+) mitral valve regurgitation. The peak gradient is 12 mmHg and the mean gradient is 5 mmHg. MV gradients recorded at 60bpm. 2-3+ TR. RVSP 63 mmHg. During Device check monitor zone added at 100 bpm to detect further slow VT Started on IV amio and IV lidocaine on the floor prior to transfer to CICU on 06/17 In ICU, she underwent programmed extrastimulation (440ms X 12, followed by 260ms and 260ms) terminating VT. Transfer to [facility] on 06/20 Plan: Continue amiodarone 400 mg BID and mexilitine 150 mg TID. Given large NASRA clot, would advise against cardioversion unless patient is unstable. VT ablation risky in setting of large NASRA thrombus. Plan to monitor patient over the weekend for recurrent VT. If she remains stable, likely discharge home on Wednesday Dyslipidemia, goal LDL below 70 07/17/2012 07/23/2020 Overview: 07.18.2012: Pre-op Lipid panel: TC 152, TC 265, HDL 39, LDL 60. On Zocor 80 mg pre-op. Will consider changing statin d/t high incidence of interactions with Zocor 80. Consider Lipitor 80 in light of prior STEMI. Fluid overload 07/14/2012 07/16/2012 Overview: Cont diuresis Post-op Afib (s/p DCCV x 1) 07/14/2012 07/23/2020 Overview: Currently A-paced. On po amio - will continue for rate control of underlying rhythm as ICD threshold is set at 130 and AFib RVR is causing inappropriate firing of AICD. Started on coumadin- PT/INR supra-therapeutic at 3.8. Will hold coumadin tonight and monitor. No overt signs of bleeding. PMW cut without incident 07.18.2012. 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 CXR 07.16 reveals probable small left pleural effusions. On IV lasix- changed to po. Encourage increased activity, PEP. Cardiac insufficiency follow ing cardiac surgery 07/13/2012 07/14/2012 Overview: Per report CI 1.7 in OR, started IV Epi Wean for CI > 2.5 Intravascular volume depletion 07/13/2012 07/14/2012 Overview: Gentle fluid resuscitation PRN EF 35-40% SUMMARY 07/11/2012 07/23/2020 Overview: Principal Diagnosis: Fatigue, SOB, chest pain, MR. Preop: LVEF: 10-25% RVF: Normal Post -op: LVEF: 16% RVF: Normal Comorbidities: CAD, remote STEMI (1998 s/p multiple BMS to LCx (now with in stent restenosis)-IABP, AICD 1998, HTN (JUDAH), HPL, ex-smoker (1.5 ppd for 15 yrs, quit 07/04/12), GERD, migraines, depression, anxiety. Surgery: 07/13/2012: MVR (CE #27mm), preservation of papillary muscles and chordal apparatus CVICU: Afib w/RVR (resulting in inappropriate shocks x 6- EP consulted). RNF on POD 2 DVT prophylaxis: Encourage increased activity, PEP. Preop testing 07/08/2012 07/23/2020 Overview: Images from the original note were not included. [facility] Surgeon: Kvng Merlos M.D. Informed Consent Completed done STS Score: 0.6% CAD: no Is intended procedure a CABG: No H & P completed: Yes PA/LAT: Completed CT: N/A MRI: N/A LE US: N/A Cath: Yes - reviewed: Yes Echo:Completed EKG: Completed EF %: 28 PI's: N/A Carotid: N/A Mapping: N/A Dental: cleared. PFT's: Completed CBC, Coags, BMP, Mg, Phos Basename 07/12/12 0507 07/11/12 2220 WBC 8.50 6.78 HB 13.1 12.9 HCT 40.0 38.7 PLT 205 176 INR -- 1.2 APTT -- 29.9 NA 140 137 K 3.6 3.7 CHLOR 107 105 CO2 19* 22* BUN 12 13 CREAT 0.91 0.83 GLUC 113* 91 CA 8.8 8.4* MG 1.8 2.1 P -- -- UA: neg HCG:Completed ABO/ABO Confirmed: Yes Blood ordered: Yes SA Swab: Yes - results: neg Last Dose of Anticoagulation: asa 81 Op Note: N/A Pacemaker Check: Yes Consults: none DM: No Cardiac Surgical prep: N/A SIGNATURE: Cindi Ramírez MS, XIOMY DATE of SERVICE: 07/08/2012 TIME of SERVICE: 1:24 PM mwa 07/12 Anemia 10/29/2011 07/23/2020 Overview: in 10/2011, s/p blood transfusions in 10/2011 Fitting and adjustment of orthopedic device 04/29/2010 07/23/2020 Urinary tract infection of 07/26/2004 07/23/2020 Remote STEMI (1998) 07/23/20 20 Overview: 07.18.2012: On ASA, BB, ADELE. On Zocor 80 mg pre-op. Will consider starting an alternative statin therapy d/t multiple interactions with Zocor at higher doses. Cardiogenic shock 07/23/2020 Heart failure, systolic, acute on chronic 07/23/2020 Overview: Pre-op EF 10-25% preop, post-op EF 16%. No JVD, no LE edema, lungs clear, SR , SBP normotensive, wt below admission. On BB (Coreg), diuretic, low-dose ADELE (with parameters). Will monitor I&O's, wts. 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 EP consulted- will follow their recommendations (will continue po amio taper to control rate). Needs pacer check- Wednesday07.18.2012- will d/w EP about pacer check. H/o GERD 07/23/2020 Overview: 07.18.2012: Asymptomatic. On Protonix. documented as of this encounter (statuses as of 04/22/2023) [facility]10-17-2020 History of Past illness Narrative* Problem Noted Date Diagnosed Date Resolved Date Acute on chronic systolic (c ongestive) heart failure 06/15/2020 07/23/2020 Overview: Acute on chronic VT likely playing a role Echo 11/15/18: EF 35%, severely dilated LA, dilated RA, MVR (CE), trace MR, 2-3+ TR, RVSP 51 mmHg JOVITA 06/10: EF 30%, dilated LA, NASRA thrombus (1.7x1.7cm), 1+ MR, 4+TR. TTE 06/11: EF 27%. Cornell-Lang prosthetic mitral valve (size #27). There is trace (trace - 1+) mitral valve regurgitation. The peak gradient is 12 mmHg and the mean gradient is 5 mmHg. MV gradients recorded at 60bpm. 2-3+ TR. RVSP 63 mmHg. Improved after diuresis with IV Lasix on admission. Stable. Plan: Continue Entresto, carvedilol, spironolactone. 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 Ventricular tachycardia 06/08/202005/31 Overview: Recurrent, slow, hemodynamically stable VT around 107 bmp despite amiodarone VT ablation 06/10 aborted due to large NASRA thrombus. JOVITA 06/10: EF 30%, dilated LA, NASRA thrombus (1.7x1.7cm), 1+ MR, 4+TR. TTE 06/11: EF 27%. Cornell-Lang prosthetic mitral valve (size #27). There is trace (trace - 1+) mitral valve regurgitation. The peak gradient is 12 mmHg and the mean gradient is 5 mmHg. MV gradients recorded at 60bpm. 2-3+ TR. RVSP 63 mmHg. During Device check monitor zone added at 100 bpm to detect further slow VT Started on IV amio and IV lidocaine on the floor prior to transfer to CICU on 06/17 In ICU, she underwent programmed extrastimulation (440ms X 12, followed by 260ms and 260ms) terminating VT. Transfer to [facility] on 06/20 Plan: Continue amiodarone 400 mg BID and mexilitine 150 mg TID. Given large NASRA clot, would advise against cardioversion unless patient is unstable. VT ablation risky in setting of large NASRA thrombus. Plan to monitor patient over the weekend for recurrent VT. If she remains stable, likely discharge home on Wednesday Dyslipidemia, goal LDL below 70 07/17/2012 07/23/2020 Overview: 07.18.2012: Pre-op Lipid panel: TC 152, TC 265, HDL 39, LDL 60. On Zocor 80 mg pre-op. Will consider changing statin d/t high incidence of interactions with Zocor 80. Consider Lipitor 80 in light of prior STEMI. Fluid overload 07/14/2012 07/16/2012 Overview: Cont diuresis Post-op Afib (s/p DCCV x 1) 07/14/2012 07/23/2020 Overview: Currently A-paced. On po amio - will continue for rate control of underlying rhythm as ICD threshold is set at 130 and AFib RVR is causing inappropriate firing of AICD. Started on coumadin- PT/INR supra-therapeutic at 3.8. Will hold coumadin tonight and monitor. No overt signs of bleeding. PMW cut without incident 07.18.2012. 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 CXR 07.16 reveals probable small left pleural effusions. On IV lasix- changed to po. Encourage increased activity, PEP. Cardiac insufficiency follow ing cardiac surgery 07/13/2012 07/14/2012 Overview: Per report CI 1.7 in OR, started IV Epi Wean for CI > 2.5 Intravascular volume depletion 07/13/2012 07/14/2012 Overview: Gentle fluid resuscitation PRN EF 35-40% SUMMARY 07/11/2012 07/23/2020 Overview: Principal Diagnosis: Fatigue, SOB, chest pain, MR. Preop: LVEF: 10-25% RVF: Normal Post -op: LVEF: 16% RVF: Normal Comorbidities: CAD, remote STEMI (1998 s/p multiple BMS to LCx (now with in stent restenosis)-IABP, AICD 1998, HTN (JUDAH), HPL, ex-smoker (1.5 ppd for 15 yrs, quit 07/04/12), GERD, migraines, depression, anxiety. Surgery: 07/13/2012: MVR (CE #27mm), preservation of papillary muscles and chordal apparatus CVICU: Afib w/RVR (resulting in inappropriate shocks x 6- EP consulted). RNF on POD 2 DVT prophylaxis: Encourage increased activity, PEP. Preop testing 07/08/2012 07/23/2020 Overview: Images from the original note were not included. [facility] Surgeon: Kvng Merlos M.D. Informed Consent Completed done STS Score: 0.6% CAD: no Is intended procedure a CABG: No H & P completed: Yes PA/LAT: Completed CT: N/A MRI: N/A LE US: N/A Cath: Yes - reviewed: Yes Echo:Completed EKG: Completed EF %: 28 PI's: N/A Carotid: N/A Mapping: N/A Dental: cleared. PFT's: Completed CBC, Coags, BMP, Mg, Phos Basename 07/12/12 0507 07/11/12 2220 WBC 8.50 6.78 HB 13.1 12.9 HCT 40.0 38.7 PLT 205 176 INR -- 1.2 APTT -- 29.9 NA 140 137 K 3.6 3.7 CHLOR 107 105 CO2 19* 22* BUN 12 13 CREAT 0.91 0.83 GLUC 113* 91 CA 8.8 8.4* MG 1.8 2.1 P -- -- UA: neg HCG:Completed ABO/ABO Confirmed: Yes Blood ordered: Yes SA Swab: Yes - results: neg Last Dose of Anticoagulation: asa 81 Op Note: N/A Pacemaker Check: Yes Consults: none DM: No Cardiac Surgical prep: N/A SIGNATURE: Cindi Ramírez MS, XIOMY DATE of SERVICE: 07/08/2012 TIME of SERVICE: 1:24 PM mwa 07/12 Anemia 10/29/2011 07/23/2020 Overview: in 10/2011, s/p blood transfusions in 10/2011 Fitting and adjustment of orthopedic device 04/29/2010 07/23/2020 Urinary tract infection of 07/26/2004 07/23/2020 Remote STEMI (1998) 07/23/20 20 Overview: 07.18.2012: On ASA, BB, ADELE. On Zocor 80 mg pre-op. Will consider starting an alternative statin therapy d/t multiple interactions with Zocor at higher doses. Cardiogenic shock 07/23/2020 Heart failure, systolic, acute on chronic 07/23/2020 Overview: Pre-op EF 10-25% preop, post-op EF 16%. No JVD, no LE edema, lungs clear, SR , SBP normotensive, wt below admission. On BB (Coreg), diuretic, low-dose ADELE (with parameters). Will monitor I&O's, wts. 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 EP consulted- will follow their recommendations (will continue po amio taper to control rate). Needs pacer check- Wednesday07.18.2012- will d/w EP about pacer check. H/o GERD 07/23/2020 Overview: 07.18.2012: Asymptomatic. On Protonix. documented as of this encounter (statuses as of 05/07/2023) [facility] History of Past illness Narrative* Problem Noted Date Diagnosed Date Resolved Date Acute on chronic systolic (c ongestive) heart failure 06/15/2020 07/23/2020 Overview: Acute on chronic VT likely playing a role Echo 11/15/18: EF 35%, severely dilated LA, dilated RA, MVR (CE), trace MR, 2-3+ TR, RVSP 51 mmHg JOVITA 06/10: EF 30%, dilated LA, NASRA thrombus (1.7x1.7cm), 1+ MR, 4+TR. TTE 06/11: EF 27%. Cornell-Lang prosthetic mitral valve (size #27). There is trace (trace - 1+) mitral valve regurgitation. The peak gradient is 12 mmHg and the mean gradient is 5 mmHg. MV gradients recorded at 60bpm. 2-3+ TR. RVSP 63 mmHg. Improved after diuresis with IV Lasix on admission. Stable. Plan: Continue Entresto, carvedilol, spironolactone. 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 Ventricular tachycardia 06/08/202005/31 Overview: Recurrent, slow, hemodynamically stable VT around 107 bmp despite amiodarone VT ablation 06/10 aborted due to large NASRA thrombus. JOVITA 06/10: EF 30%, dilated LA, NASRA thrombus (1.7x1.7cm), 1+ MR, 4+TR. TTE 06/11: EF 27%. Cornell-Lang prosthetic mitral valve (size #27). There is trace (trace - 1+) mitral valve regurgitation. The peak gradient is 12 mmHg and the mean gradient is 5 mmHg. MV gradients recorded at 60bpm. 2-3+ TR. RVSP 63 mmHg. During Device check monitor zone added at 100 bpm to detect further slow VT Started on IV amio and IV lidocaine on the floor prior to transfer to CICU on 06/17 In ICU, she underwent programmed extrastimulation (440ms X 12, followed by 260ms and 260ms) terminating VT. Transfer to [facility] on 06/20 Plan: Continue amiodarone 400 mg BID and mexilitine 150 mg TID. Given large NASRA clot, would advise against cardioversion unless patient is unstable. VT ablation risky in setting of large NASRA thrombus. Plan to monitor patient over the weekend for recurrent VT. If she remains stable, likely discharge home on Wednesday Dyslipidemia, goal LDL below 70 07/17/2012 07/23/2020 Overview: 07.18.2012: Pre-op Lipid panel: TC 152, TC 265, HDL 39, LDL 60. On Zocor 80 mg pre-op. Will consider changing statin d/t high incidence of interactions with Zocor 80. Consider Lipitor 80 in light of prior STEMI. Fluid overload 07/14/2012 07/16/2012 Overview: Cont diuresis Post-op Afib (s/p DCCV x 1) 07/14/2012 07/23/2020 Overview: Currently A-paced. On po amio - will continue for rate control of underlying rhythm as ICD threshold is set at 130 and AFib RVR is causing inappropriate firing of AICD. Started on coumadin- PT/INR supra-therapeutic at 3.8. Will hold coumadin tonight and monitor. No overt signs of bleeding. PMW cut without incident 07.18.2012. 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 CXR 07.16 reveals probable small left pleural effusions. On IV lasix- changed to po. Encourage increased activity, PEP. Cardiac insufficiency follow ing cardiac surgery 07/13/2012 07/14/2012 Overview: Per report CI 1.7 in OR, started IV Epi Wean for CI > 2.5 Intravascular volume depletion 07/13/2012 07/14/2012 Overview: Gentle fluid resuscitation PRN EF 35-40% SUMMARY 07/11/2012 07/23/2020 Overview: Principal Diagnosis: Fatigue, SOB, chest pain, MR. Preop: LVEF: 10-25% RVF: Normal Post -op: LVEF: 16% RVF: Normal Comorbidities: CAD, remote STEMI (1998 s/p multiple BMS to LCx (now with in stent restenosis)-IABP, AICD 1998, HTN (JUDAH), HPL, ex-smoker (1.5 ppd for 15 yrs, quit 07/04/12), GERD, migraines, depression, anxiety. Surgery: 07/13/2012: MVR (CE #27mm), preservation of papillary muscles and chordal apparatus CVICU: Afib w/RVR (resulting in inappropriate shocks x 6- EP consulted). RNF on POD 2 DVT prophylaxis: Encourage increased activity, PEP. Preop testing 07/08/2012 07/23/2020 Overview: Images from the original note were not included. [facility] Surgeon: Kvng Merlos M.D. Informed Consent Completed done STS Score: 0.6% CAD: no Is intended procedure a CABG: No H & P completed: Yes PA/LAT: Completed CT: N/A MRI: N/A LE US: N/A Cath: Yes - reviewed: Yes Echo:Completed EKG: Completed EF %: 28 PI's: N/A Carotid: N/A Mapping: N/A Dental: cleared. PFT's: Completed CBC, Coags, BMP, Mg, Phos Basename 07/12/12 0507 07/11/12 2220 WBC 8.50 6.78 HB 13.1 12.9 HCT 40.0 38.7 PLT 205 176 INR -- 1.2 APTT -- 29.9 NA 140 137 K 3.6 3.7 CHLOR 107 105 CO2 19* 22* BUN 12 13 CREAT 0.91 0.83 GLUC 113* 91 CA 8.8 8.4* MG 1.8 2.1 P -- -- UA: neg HCG:Completed ABO/ABO Confirmed: Yes Blood ordered: Yes SA Swab: Yes - results: neg Last Dose of Anticoagulation: asa 81 Op Note: N/A Pacemaker Check: Yes Consults: none DM: No Cardiac Surgical prep: N/A SIGNATURE: Cindi Ramírez MS, PARosemarie DATE of SERVICE: 07/08/2012 TIME of SERVICE: 1:24 PM mwa 07/12 Anemia 10/29/2011 07/23/2020 Overview: in 10/2011, s/p blood transfusions in 10/2011 Fitting and adjustment of orthopedic device 04/29/2010 07/23/2020 Urinary tract infection of 07/26/2004 07/23/2020 Remote STEMI (1998) 07/23/20 20 Overview: 07.18.2012: On ASA, BB, ADELE. On Zocor 80 mg pre-op. Will consider starting an alternative statin therapy d/t multiple interactions with Zocor at higher doses. Cardiogenic shock 07/23/2020 Heart failure, systolic, acute on chronic 07/23/2020 Overview: Pre-op EF 10-25% preop, post-op EF 16%. No JVD, no LE edema, lungs clear, SR , SBP normotensive, wt below admission. On BB (Coreg), diuretic, low-dose ADELE (with parameters). Will monitor I&O's, wts. 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 EP consulted- will follow their recommendations (will continue po amio taper to control rate). Needs pacer check- Wednesday07.18.2012- will d/w EP about pacer check. H/o GERD 07/23/2020 Overview: 07.18.2012: Asymptomatic. On Protonix. documented as of this encounter (statuses as of 07/28/2023) [facility] History of Past illness Narrative* Problem Noted Date Diagnosed Date Resolved Date Acute on chronic systolic (c ongestive) heart failure 06/15/2020 07/23/2020 Overview: Acute on chronic VT likely playing a role Echo 11/15/18: EF 35%, severely dilated LA, dilated RA, MVR (CE), trace MR, 2-3+ TR, RVSP 51 mmHg JOVITA 06/10: EF 30%, dilated LA, NASRA thrombus (1.7x1.7cm), 1+ MR, 4+TR. TTE 06/11: EF 27%. Cornell-Lang prosthetic mitral valve (size #27). There is trace (trace - 1+) mitral valve regurgitation. The peak gradient is 12 mmHg and the mean gradient is 5 mmHg. MV gradients recorded at 60bpm. 2-3+ TR. RVSP 63 mmHg. Improved after diuresis with IV Lasix on admission. Stable. Plan: Continue Entresto, carvedilol, spironolactone. 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 Ventricular tachycardia 06/08/202005/31 Overview: Recurrent, slow, hemodynamically stable VT around 107 bmp despite amiodarone VT ablation 06/10 aborted due to large NASRA thrombus. JOVITA 06/10: EF 30%, dilated LA, NASRA thrombus (1.7x1.7cm), 1+ MR, 4+TR. TTE 06/11: EF 27%. Cornell-Lang prosthetic mitral valve (size #27). There is trace (trace - 1+) mitral valve regurgitation. The peak gradient is 12 mmHg and the mean gradient is 5 mmHg. MV gradients recorded at 60bpm. 2-3+ TR. RVSP 63 mmHg. During Device check monitor zone added at 100 bpm to detect further slow VT Started on IV amio and IV lidocaine on the floor prior to transfer to CICU on 06/17 In ICU, she underwent programmed extrastimulation (440ms X 12, followed by 260ms and 260ms) terminating VT. Transfer to [facility] on 10/22 Plan: Continue amiodarone 400 mg BID and mexilitine 150 mg TID. Given large NASRA clot, would advise against cardioversion unless patient is unstable. VT ablation risky in setting of large NASRA thrombus. Plan to monitor patient over the weekend for recurrent VT. If she remains stable, likely discharge home on Wednesday Dyslipidemia, goal LDL below 70 07/17/2012 07/23/2020 Overview: 07.18.2012: Pre-op Lipid panel: TC 152, TC 265, HDL 39, LDL 60. On Zocor 80 mg pre-op. Will consider changing statin d/t high incidence of interactions with Zocor 80. Consider Lipitor 80 in light of prior STEMI. Fluid overload 07/14/2012 07/16/2012 Overview: Cont diuresis Post-op Afib (s/p DCCV x 1) 07/14/2012 07/23/2020 Overview: Currently A-paced. On po amio - will continue for rate control of underlying rhythm as ICD threshold is set at 130 and AFib RVR is causing inappropriate firing of AICD. Started on coumadin- PT/INR supra-therapeutic at 3.8. Will hold coumadin tonight and monitor. No overt signs of bleeding. PMW cut without incident 07.18.2012. 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 CXR 07.16 reveals probable small left pleural effusions. On IV lasix- changed to po. Encourage increased activity, PEP. Cardiac insufficiency follow ing cardiac surgery 07/13/2012 07/14/2012 Overview: Per report CI 1.7 in OR, started IV Epi Wean for CI > 2.5 Intravascular volume depletion 07/13/2012 07/14/2012 Overview: Gentle fluid resuscitation PRN EF 35-40% SUMMARY 07/11/2012 07/23/2020 Overview: Principal Diagnosis: Fatigue, SOB, chest pain, MR. Preop: LVEF: 10-25% RVF: Normal Post -op: LVEF: 16% RVF: Normal Comorbidities: CAD, remote STEMI (1998 s/p multiple BMS to LCx (now with in stent restenosis)-IABP, AICD 1998, HTN (JUDAH), HPL, ex-smoker (1.5 ppd for 15 yrs, quit 07/04/12), GERD, migraines, depression, anxiety. Surgery: 07/13/2012: MVR (CE #27mm), preservation of papillary muscles and chordal apparatus CVICU: Afib w/RVR (resulting in inappropriate shocks x 6- EP consulted). RNF on POD 2 DVT prophylaxis: Encourage increased activity, PEP. Preop testing 07/08/2012 07/23/2020 Overview: Images from the original note were not included. [facility] PRE[facility] Surgeon: Kvng Merlos M.D. Informed Consent Completed done STS Score: 0.6% CAD: no Is intended procedure a CABG: No H & P completed: Yes PA/LAT: Completed CT: N/A MRI: N/A LE US: N/A Cath: Yes - reviewed: Yes Echo:Completed EKG: Completed EF %: 28 PI's: N/A Carotid: N/A Mapping: N/A Dental: cleared. PFT's: Completed CBC, Coags, BMP, Mg, Phos Basename 07/12/12 0507 07/11/12 2220 WBC 8.50 6.78 HB 13.1 12.9 HCT 40.0 38.7 PLT 205 176 INR -- 1.2 APTT -- 29.9 NA 140 137 K 3.6 3.7 CHLOR 107 105 CO2 19* 22* BUN 12 13 CREAT 0.91 0.83 GLUC 113* 91 CA 8.8 8.4* MG 1.8 2.1 P -- -- UA: neg HCG:Completed ABO/ABO Confirmed: Yes Blood ordered: Yes SA Swab: Yes - results: neg Last Dose of Anticoagulation: asa 81 Op Note: N/A Pacemaker Check: Yes Consults: none DM: No Cardiac Surgical prep: N/A SIGNATURE: Cindi Ramírez MS, PA-C DATE of SERVICE: 07/08/2012 TIME of SERVICE: 1:24 PM mwa 07/12 Anemia 10/29/2011 07/23/2020 Overview: in 10/2011, s/p blood transfusions in 10/2011 Fitting and adjustment of orthopedic device 04/29/2010 07/23/2020 Urinary tract infection of 07/26/2004 07/23/2020 Remote STEMI (1998) 07/23/20 20 Overview: 07.18.2012: On ASA, BB, ADELE. On Zocor 80 mg pre-op. Will consider starting an alternative statin therapy d/t multiple interactions with Zocor at higher doses. Cardiogenic shock 07/23/2020 Heart failure, systolic, acute on chronic 07/23/2020 Overview: Pre-op EF 10-25% preop, post-op EF 16%. No JVD, no LE edema, lungs clear, SR , SBP normotensive, wt below admission. On BB (Coreg), diuretic, low-dose ADELE (with parameters). Will monitor I&O's, wts. 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 EP consulted- will follow their recommendations (will continue po amio taper to control rate). Needs pacer check- Wednesday07.18.2012- will d/w EP about pacer check. H/o GERD 07/23/2020 Overview: 07.18.2012: Asymptomatic. On Protonix. documented as of this encounter (statuses as of 07/28/2023) [facility] History of Past illness Narrative* Problem Noted Date Diagnosed Date Resolved Date Acute on chronic systolic (c ongestive) heart failure 06/15/2020 07/23/2020 Overview: Acute on chronic VT likely playing a role Echo 11/15/18: EF 35%, severely dilated LA, dilated RA, MVR (CE), trace MR, 2-3+ TR, RVSP 51 mmHg JOVITA 06/10: EF 30%, dilated LA, NASRA thrombus (1.7x1.7cm), 1+ MR, 4+TR. TTE 06/11: EF 27%. Cornell-Lang prosthetic mitral valve (size #27). There is trace (trace - 1+) mitral valve regurgitation. The peak gradient is 12 mmHg and the mean gradient is 5 mmHg. MV gradients recorded at 60bpm. 2-3+ TR. RVSP 63 mmHg. Improved after diuresis with IV Lasix on admission. Stable. Plan: Continue Entresto, carvedilol, spironolactone. 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 Ventricular tachycardia 06/08/202005/31 Overview: Recurrent, slow, hemodynamically stable VT around 107 bmp despite amiodarone VT ablation 06/10 aborted due to large NASRA thrombus. JOVITA 06/10: EF 30%, dilated LA, NASRA thrombus (1.7x1.7cm), 1+ MR, 4+TR. TTE 06/11: EF 27%. Cornell-Lang prosthetic mitral valve (size #27). There is trace (trace - 1+) mitral valve regurgitation. The peak gradient is 12 mmHg and the mean gradient is 5 mmHg. MV gradients recorded at 60bpm. 2-3+ TR. RVSP 63 mmHg. During Device check monitor zone added at 100 bpm to detect further slow VT Started on IV amio and IV lidocaine on the floor prior to transfer to CICU on 06/17 In ICU, she underwent programmed extrastimulation (440ms X 12, followed by 260ms and 260ms) terminating VT. Transfer to [facility] on 06/20 Plan: Continue amiodarone 400 mg BID and mexilitine 150 mg TID. Given large NASRA clot, would advise against cardioversion unless patient is unstable. VT ablation risky in setting of large NASRA thrombus. Plan to monitor patient over the weekend for recurrent VT. If she remains stable, likely discharge home on Wednesday Dyslipidemia, goal LDL below 70 07/17/2012 07/23/2020 Overview: 07.18.2012: Pre-op Lipid panel: TC 152, TC 265, HDL 39, LDL 60. On Zocor 80 mg pre-op. Will consider changing statin d/t high incidence of interactions with Zocor 80. Consider Lipitor 80 in light of prior STEMI. Fluid overload 07/14/2012 07/16/2012 Overview: Cont diuresis Post-op Afib (s/p DCCV x 1) 07/14/2012 07/23/2020 Overview: Currently A-paced. On po amio - will continue for rate control of underlying rhythm as ICD threshold is set at 130 and AFib RVR is causing inappropriate firing of AICD. Started on coumadin- PT/INR supra-therapeutic at 3.8. Will hold coumadin tonight and monitor. No overt signs of bleeding. PMW cut without incident 07.18.2012. 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 CXR 07.16 reveals probable small left pleural effusions. On IV lasix- changed to po. Encourage increased activity, PEP. Cardiac insufficiency follow ing cardiac surgery 07/13/2012 07/14/2012 Overview: Per report CI 1.7 in OR, started IV Epi Wean for CI > 2.5 Intravascular volume depletion 07/13/2012 07/14/2012 Overview: Gentle fluid resuscitation PRN EF 35-40% SUMMARY 07/11/2012 07/23/2020 Overview: Principal Diagnosis: Fatigue, SOB, chest pain, MR. Preop: LVEF: 10-25% RVF: Normal Post -op: LVEF: 16% RVF: Normal Comorbidities: CAD, remote STEMI (1998 s/p multiple BMS to LCx (now with in stent restenosis)-IABP, AICD 1998, HTN (JUDAH), HPL, ex-smoker (1.5 ppd for 15 yrs, quit 07/04/12), GERD, migraines, depression, anxiety. Surgery: 07/13/2012: MVR (CE #27mm), preservation of papillary muscles and chordal apparatus CVICU: Afib w/RVR (resulting in inappropriate shocks x 6- EP consulted). RNF on POD 2 DVT prophylaxis: Encourage increased activity, PEP. Preop testing 07/08/2012 07/23/2020 Overview: Images from the original note were not included. [facility] PRE-OP [facility] Surgeon: Kvng Merlos M.D. Informed Consent Completed done STS Score: 0.6% CAD: no Is intended procedure a CABG: No H & P completed: Yes PA/LAT: Completed CT: N/A MRI: N/A LE US: N/A Cath: Yes - reviewed: Yes Echo:Completed EKG: Completed EF %: 28 PI's: N/A Carotid: N/A Mapping: N/A Dental: cleared. PFT's: Completed CBC, Coags, BMP, Mg, Phos Basename 07/12/12 0507 07/11/12 2220 WBC 8.50 6.78 HB 13.1 12.9 HCT 40.0 38.7 PLT 205 176 INR -- 1.2 APTT -- 29.9 NA 140 137 K 3.6 3.7 CHLOR 107 105 CO2 19* 22* BUN 12 13 CREAT 0.91 0.83 GLUC 113* 91 CA 8.8 8.4* MG 1.8 2.1 P -- -- UA: neg HCG:Completed ABO/ABO Confirmed: Yes Blood ordered: Yes SA Swab: Yes - results: neg Last Dose of Anticoagulation: asa 81 Op Note: N/A Pacemaker Check: Yes Consults: none DM: No Cardiac Surgical prep: N/A SIGNATURE: Cindi Ramírez MS, PAAbdoulayeC DATE of SERVICE: 07/08/2012 TIME of SERVICE: 1:24 PM mwa 07/12 Anemia 10/29/2011 07/23/2020 Overview: in 10/2011, s/p blood transfusions in 10/2011 Fitting and adjustment of orthopedic device 04/29/2010 07/23/2020 Urinary tract infection of 07/26/2004 07/23/2020 Remote STEMI (1998) 07/23/20 20 Overview: 07.18.2012: On ASA, BB, ADELE. On Zocor 80 mg pre-op. Will consider starting an alternative statin therapy d/t multiple interactions with Zocor at higher doses. Cardiogenic shock 07/23/2020 Heart failure, systolic, acute on chronic 07/23/2020 Overview: Pre-op EF 10-25% preop, post-op EF 16%. No JVD, no LE edema, lungs clear, SR , SBP normotensive, wt below admission. On BB (Coreg), diuretic, low-dose ADELE (with parameters). Will monitor I&O's, wts. 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 EP consulted- will follow their recommendations (will continue po amio taper to control rate). Needs pacer check- Wednesday07.18.2012- will d/w EP about pacer check. H/o GERD 07/23/2020 Overview: 07.18.2012: Asymptomatic. On Protonix. documented as of this encounter (statuses as of 08/10/2023) [facility] Diagnosis Onset Date Resolution Status Afib acute Anemia acute CAD (coronary artery disease) acute Iron deficiency anemia acute Ischemic cardiomyopathy with implantable cardioverter-defibrillator (ICD) acute Palpitations acute Supratherapeutic INR acute Ventricular tachycardia acut e [facility]tr[facility] noteNo InformationNort [employer] Other Evaluation noteNolakeland [facility] [employer] Other Evaluation note* Diagnosis Onset Date Resolution Status KALLI (acute kidney injury) ac [place] Digoxin toxicity acute Elevated troponin I level ac [place] Hypotension acute Thrombocytopenia acute [facility] noteNo assessment information available [facility] Work Phone: Evaluation note* Diagnosis Persistent atrial fibrillation (HCC)- Primary Atrial fibrillation documented in this encounter [facility]* Diagnosis ICD (implantable cardioverter-defibrillator) battery depletion documented in this encounter [facility] Work Phone: Evaluation note* Diagnosis ICD (implantable cardioverter-defibrillator) battery depletion Elective replacement of implantable cardioverter-defibrillator (ICD) battery required- Primary Biventricular implantable cardioverter-defibrillator (ICD) in situ Biventricular implantable cardioverter-defibrillator (ICD) in situ Elective replacement of implantable cardioverter-defibrillator (ICD) battery required documented in this encounter [facility] Work Phone: History general Narrative - Reported* Type Description Date Medical History migraines Medical History high cholesterol Medical History hx of heart attack 1998 - pacema ker/defibrillator Medical History rotator cuff tear left shoulder Medical History CELLULITIS R HAND Medical History CAD Medical History PAF Medical History DEMENTIA Medical History GERD Medical History RESTLESS LEG Medical History DVT Surgical History open heart surgery 06/2012 Surgical History pacemaker/defibrillator 1998 Surgical History hysterectomy Surgical History cholecystectomy Surgical History appendectomy Surgical History T&A Surgical History Back Surgery Hospitalization History see surgical hx Hospitalization History heart issues [facility] [employer] Other History general Narrative - ReportedNorth [employer] Other History general Narrative - Reported* Type Description Date Medical History migraines Medical History high cholesterol Medical History hx of heart attack 1998 - pacema ker/defibrillator Medical History rotator cuff tear left shoulder Medical History CELLULITIS R HAND Medical History CAD Medical History PAF Medical History DEMENTIA Medical History GERD Medical History RESTLESS LEG Medical History DVT Medical History Mitral valve replaced Surgical History open heart surgery 06/2012 Surgical History pacemaker/defibrillator 1998 Surgical History hysterectomy Surgical History cholecystectomy Surgical History appendectomy Surgical History T&A Surgical History Back Surgery Hospitalization History see surgical hx Hospitalization History heart issues [facility] [employer] Other History of Present illness Narrative* She is referred by Dr. Hoskins for evaluation for ablation of atrial flutter. * She has remote history of [place] , cardiogenic shock, PCI circumflex and iABP, with persistent severe LV dysfunction. She later occluded her cicumflex. Years later, she had HF and severe MR and underwentmitral valve repair at [facility]. She had recurrent VT and atrial arrhythmias, and underwent several ablations and repeat percutaneous MVR at [facility]. After her MVR and ablation in July,, she had KALLI when then improved. She has had recurrent ICD shocks for atrial flutter. * She is referred for atrial flutter ablation. * SHe is tired. She gets migraines at night. It may be worse with increased blood pressure recently. We discussed that she should followup with her new PCP regarding this. For now, she will start taking her metoprolol at mid day and trend her blood pressure to followup. * The patient denies any lightheadedness, near syncope, syncope, palpitation, chest discomfort, dyspnea, HANKINS with mild exertion, PND, or edema. * The device site is unchanged. The patient denies any redness, swelling, or drainage * See ROS, PMH, FMH, and surgical history for details. * Personal review of ECG and cardiac data reviewed * Outside records: * Discharge summary [facility] Oct 2021 * Cardiology consult Oct 2021 * ECG Oct 2021 * H and P Oct 2021 * Echo Oct 2021. LVEF 15% * ECG: Today. Atrial flutter. LAD. QT 400 ms * See signed ECG and check /Paceart. * Imp / Plan * Paroxsymal atrial flutter. Mutliple ICD shocks. Shared decision making re: atrial flutter management. Preop cardiac evaluation performed. Fastr decision tool. She opts for EP study ablation of atrial flutter. Procedures, risks, benefits, and imponderables reviewed. Consented. * Chronic systolic heart failure. Stable NYHA III C HF. Reviewed meds. Continue meds. Refills. * Sustained VT s/p ablations at [facility]. No documentation of ablations available in chart at time of visit * CAD, chronic. See above. Reviewed meds. Continue meds. Refills. * Biventricular ICD for refractor heart failure. Medtronic [id number]. Reviewed device check. Followed at [facility]. * Preop cardiac eval. See orders. * Hypertension, chronic. Stable. Reviewed meds. Continue meds. Refills. * Migraine headache * AHA recommendations for exercise, diet, and behavioral modification reviewed with pt. * The patient and I discussed the mechanism of arrhythmia, a flutter, ablation, biv ICD, indications for and types of medications, discussion if and what medication refills needed, treatment options, risks, benefits, and imponderables. [place] [employer] lifestyle changes and behavioral modification discussed. All questions answered in detail. Counseling over 50% visit regarding above. Patient appreciative of care. * Grammar * Please excuse grammatical or dictation errors as software dictation application being used. 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 RC/waiting for referralHartford [employer] Other Summary Purpose Family History Relationship Condition Age at Onset Recorded Date/T tosin Not Specified Small B-cell lymphoma Unknown Unknown Family Member Name Dates Details Family history of cerebrovas cular accident (CVA): Mother(V17.1, Z82.3) Status:Active Family history of lymphoma: Mother(V16.7, Z80.7) Status:Active Myocardial infarct, old: Mot her Status:Active Family history of hypertensi on: Mother, Father(V17.49, Z82.49) Status:Active Family history of malignant neoplasm: Father(V16.9, Z80.9) Status:Active Unknown Family Member Name Dates Details Myocardial infarct, old: Mot her Status:Active Family history of hypertensi on: Mother, Father(V17.49, Z82.49) Status:Active Family history of malignant neoplasm: Father(V16.9, Z80.9) Status:Active Family history of lymphoma: Mother(V16.7, Z80.7) Status:Active Family history of cerebrovas cular accident (CVA): Mother(V17.1, Z82.3) Status:Active Unknown Family Member Name Dates Details Family history of cerebrovas cular accident (CVA): Mother(V17.1, Z82.3) Status:Active Family history of lymphoma: Mother(V16.7, Z80.7) Status:Active Myocardial infarct, old: Mot her Status:Active Family history of hypertensi on: Mother, Father(V17.49, Z82.49) Status:Active Family history of malignant neoplasm: Father(V16.9, Z80.9) Status:Active Family history of lung cance r: Mother(V16.1, Z80.1) Status:Active Unknown Family Member Name Dates Details Family history of cerebrovas cular accident (CVA): Mother(V17.1, Z82.3) Status:Active Family history of lymphoma: Mother(V16.7, Z80.7) Status:Active Myocardial infarct, old: Mot her Status:Active Family history of hypertensi on: Mother, Father(V17.49, Z82.49) Status:Active Family history of malignant neoplasm: Father(V16.9, Z80.9) Status:Active Family history of lung cance r: Mother(V16.1, Z80.1) Status:Active Unknown Family Member Name Dates Details Family history of cerebrovas cular accident (CVA): Mother(V17.1, Z82.3) Status:Active Family history of lymphoma: Mother(V16.7, Z80.7) Status:Active Myocardial infarct, old: Mot her Status:Active Family history of hypertensi on: Mother, Father(V17.49, Z82.49) Status:Active Family history of malignant neoplasm: Father(V16.9, Z80.9) Status:Active Family history of lung cance r: Mother(V16.1, Z80.1) Status:Active Unknown Family Member Name Dates Details Family history of cerebrovas cular accident (CVA): Mother(V17.1, Z82.3) Status:Active Family history of lymphoma: Mother(V16.7, Z80.7) Status:Active Myocardial infarct, old: Mot her Status:Active Family history of hypertensi on: Mother, Father(V17.49, Z82.49) Status:Active Family history of malignant neoplasm: Father(V16.9, Z80.9) Status:Active Family history of lung cance r: Mother(V16.1, Z80.1) Status:Active Unknown Family Member Name Dates Details Family history of cerebrovas cular accident (CVA): Mother(V17.1, Z82.3) Status:Active Family history of lymphoma: Mother(V16.7, Z80.7) Status:Active Myocardial infarct, old: Mot her Status:Active Family history of hypertensi on: Mother, Father(V17.49, Z82.49) Status:Active Family history of malignant neoplasm: Father(V16.9, Z80.9) Status:Active Family history of lung cance r: Mother(V16.1, Z80.1) Status:Active Unknown Family Member Name Dates Details Family history of cerebrovas cular accident (CVA): Mother(V17.1, Z82.3) Status:Active Family history of lymphoma: Mother(V16.7, Z80.7) Status:Active Myocardial infarct, old: Mot her Status:Active Family history of hypertensi on: Mother, Father(V17.49, Z82.49) Status:Active Family history of malignant neoplasm: Father(V16.9, Z80.9) Status:Active Family history of lung cance r: Mother(V16.1, Z80.1) Status:Active Unknown Family Member Name Dates Details Family history of cerebrovas cular accident (CVA): Mother(V17.1, Z82.3) Status:Active Family history of lymphoma: Mother(V16.7, Z80.7) Status:Active Myocardial infarct, old: Mot her Status:Active Family history of hypertensi on: Mother, Father(V17.49, Z82.49) Status:Active Family history of malignant neoplasm: Father(V16.9, Z80.9) Status:Active Family history of lung cance r: Mother(V16.1, Z80.1) Status:Active Unknown Family Member Name Dates Details Family history of cerebrovas cular accident (CVA): Mother(V17.1, Z82.3) Status:Active Family history of lymphoma: Mother(V16.7, Z80.7) Status:Active Myocardial infarct, old: Mot her Status:Active Family history of hypertensi on: Mother, Father(V17.49, Z82.49) Status:Active Family history of malignant neoplasm: Father(V16.9, Z80.9) Status:Active Family history of lung cance r: Mother(V16.1, Z80.1) Status:Active Unknown Family Member Name Dates Details Family history of cerebrovas cular accident (CVA): Mother(V17.1, Z82.3) Status:Active Family history of lymphoma: Mother(V16.7, Z80.7) Status:Active Myocardial infarct, old: Mot her Status:Active Family history of hypertensi on: Mother, Father(V17.49, Z82.49) Status:Active Family history of malignant neoplasm: Father(V16.9, Z80.9) Status:Active Family history of lung cance r: Mother(V16.1, Z80.1) Status:Active Unknown Family Member Name Dates Details Family history of cerebrovas cular accident (CVA): Mother(V17.1, Z82.3) Status:Active Family history of lymphoma: Mother(V16.7, Z80.7) Status:Active Myocardial infarct, old: Mot her Status:Active Family history of hypertensi on: Mother, Father(V17.49, Z82.49) Status:Active Family history of malignant neoplasm: Father(V16.9, Z80.9) Status:Active Family history of lung cance r: Mother(V16.1, Z80.1) Status:Active Unknown Family Member Name Dates Details Family history of cerebrovas cular accident (CVA): Mother(V17.1, Z82.3) Status:Active Family history of lymphoma: Mother(V16.7, Z80.7) Status:Active Myocardial infarct, old: Mot her Status:Active Family history of hypertensi on: Mother, Father(V17.49, Z82.49) Status:Active Family history of malignant neoplasm: Father(V16.9, Z80.9) Status:Active Family history of lung cance r: Mother(V16.1, Z80.1) Status:Active Unknown Family Member Name Dates Details Family history of cerebrovas cular accident (CVA): Mother(V17.1, Z82.3) Status:Active Family history of lymphoma: Mother(V16.7, Z80.7) Status:Active Myocardial infarct, old: Mot her Status:Active Family history of hypertensi on: Mother, Father(V17.49, Z82.49) Status:Active Family history of malignant neoplasm: Father(V16.9, Z80.9) Status:Active Family history of lung cance r: Mother(V16.1, Z80.1) Status:Active Unknown Family Member Name Dates Details Family history of cerebrovas cular accident (CVA): Mother(V17.1, Z82.3) Status:Active Family history of lymphoma: Mother(V16.7, Z80.7) Status:Active Myocardial infarct, old: Mot her Status:Active Family history of hypertensi on: Mother, Father(V17.49, Z82.49) Status:Active Family history of malignant neoplasm: Father(V16.9, Z80.9) Status:Active Family history of lung cance r: Mother(V16.1, Z80.1) Status:Active Unknown Family Member Name Dates Details Family history of cerebrovas cular accident (CVA): Mother(V17.1, Z82.3) Status:Active Family history of lymphoma: Mother(V16.7, Z80.7) Status:Active Myocardial infarct, old: Mot her Status:Active Family history of hypertensi on: Mother, Father(V17.49, Z82.49) Status:Active Family history of malignant neoplasm: Father(V16.9, Z80.9) Status:Active Family history of lung cance r: Mother(V16.1, Z80.1) Status:Active Unknown Family Member Name Dates Details Family history of cerebrovas cular accident (CVA): Mother(V17.1, Z82.3) Status:Active Family history of lymphoma: Mother(V16.7, Z80.7) Status:Active Myocardial infarct, old: Mot her Status:Active Family history of hypertensi on: Mother, Father(V17.49, Z82.49) Status:Active Family history of malignant neoplasm: Father(V16.9, Z80.9) Status:Active Family history of lung cance r: Mother(V16.1, Z80.1) Status:Active Unknown Family Member Name Dates Details Family history of cerebrovas cular accident (CVA): Mother(V17.1, Z82.3) Status:Active Family history of lymphoma: Mother(V16.7, Z80.7) Status:Active Myocardial infarct, old: Mot her Status:Active Family history of hypertensi on: Mother, Father(V17.49, Z82.49) Status:Active Family history of malignant neoplasm: Father(V16.9, Z80.9) Status:Active Family history of lung cance r: Mother(V16.1, Z80.1) Status:Active Unknown Family Member Name Dates Details Family history of cerebrovas cular accident (CVA): Mother(V17.1, Z82.3) Status:Active Family history of lymphoma: Mother(V16.7, Z80.7) Status:Active Myocardial infarct, old: Mot her Status:Active Family history of hypertensi on: Mother, Father(V17.49, Z82.49) Status:Active Family history of malignant neoplasm: Father(V16.9, Z80.9) Status:Active Family history of lung cance r: Mother(V16.1, Z80.1) Status:Active Advance Directives Documents on File Type Date Recorded Patient [employer] Work[employer] Expl anation Advance Directive(s) 06/18/2020 4:28 PM Latest Code Status on File Code Status Date Activated Date Inactivated Comments Full Code 03/12/2021 10:14 AM 03/19/2021 4:00 PM Full Code Order Discussed With: Patient Full Code 08/17/2020 5:22 AM 08/22/2020 7:38 PM Full Code 06/17/2020 7:58 PM 06/23/2020 4:48 PM Advance Directive Response Recorded Date/ Time Advance Directives No April 9:06am Advance Directive Response Recorded Date/ Time Advance Directives No April 10:06am Documents on File Type Date Recorded Patient [employer] Work[employer] Expl anation Advance Directive(s) 03/12/2021 1:21 PM Advance Directive(s) 12/27/2020 3:12 PM Advance Directive(s) 08/18/2020 1:26 PM Advance Directive(s) 08/17/2020 6:49 PM Advance Directive(s) 08/11/2020 1:34 PM [facility] Advance Directive(s) 07/23/2020 12:14 PM Advance Directive(s) 06/18/2020 4:29 PM Advance Directive(s) 06/18/2020 4:28 PM Advance Directive(s) 06/16/2020 11:46 AM Advance Directive(s) 06/08/2020 1:19 PM Advance Directive(s) 11/14/2018 6:05 AM Advance Directive(s) 10/26/2018 8:47 AM Latest Code Status on File Code Status Date Activated Date Inactivated Comments Full Code 03/12/2021 10:14 AM 03/19/2021 4:00 PM Question Answer Comments Full Code Order Discussed With: Patient Code Status History Code Status Date Activated Date Inactivated Comments Full Code 08/17/2020 5:22 AM 08/22/2020 7:38 PM Question Answer Comments Full Code Order Discussed With: Patient Full Code 06/17/2020 7:58 PM 06/23/2020 4:48 PM Question Answer Comments Full Code Order Discussed With: Patient Advance Directive Response Recorded Date/ Time Advance Directives No August 04, 2023 2:59pm Chief Complaint and Reason for Visit Chief Complaint ^ stemi Shortness of Breath lightheaded,alarm went of on defib defibrillator discharged defib fired afib sob Reason for Visit CAD (coronary artery disease) Chest pain Elevated troponin I level Ischemic cardiomyopathy with implantable cardioverter-defibrillator (ICD) Ventricular tachycardia Congestive heart failure Palpitations Ventricular tachycardia Chief Complaint ^ afib LEFT ARM PAIN Reason for Visit Anemia CAD (coronary artery disease) Ischemic cardiomyopathy with implantable cardioverter-defibrillator (ICD) Palpitations Supratherapeutic INR Chief Complaint ^ afib LEFT ARM PAIN Reason for Visit Afib Anemia CAD (coronary artery disease) Iron deficiency anemia Ischemic cardiomyopathy with implantable cardioverter-defibrillator (ICD) Palpitations Supratherapeutic INR Ventricular tachycardia Chief Complaint ^ LEFT ARM PAIN Reason for Visit Afib Anemia CAD (coronary artery disease) Iron deficiency anemia Ischemic cardiomyopathy with implantable cardioverter-defibrillator (ICD) Palpitations Supratherapeutic INR Ventricular tachycardia Chief Complaint ^ Z51.81 weakness Reason for Visit KALLI (acute kidney in jury) Digoxin toxicity Elevated troponin I level Hypotension Thrombocytopenia Chief Complaint ^ Chief Complaint ^ Ventricular tachycardia Assessments Diagnosis Onset Date Resolution Status CAD (coronary artery disease) acute Chest pain acute Elevated troponin I level ac [place] Ischemic cardiomyopathy with implantable cardioverter-defibrillator (ICD) acute Ventricular tachycardia acut e Congestive heart failure acu te Palpitations acute Diagnosis Onset Date Resolution Status Anemia acute CAD (coronary artery disease) acute Ischemic cardiomyopathy with implantable cardioverter-defibrillator (ICD) acute Palpitations acute Supratherapeutic INR acute Diagnosis Onset Date Resolution Status Afib acute Anemia acute CAD (coronary artery disease) acute Iron deficiency anemia acute Ischemic cardiomyopathy with implantable cardioverter-defibrillator (ICD) acute Palpitations acute Supratherapeutic INR acute Ventricular tachycardia acut e Chief Complaint Order sent to [facility] for testing due in patient referred by Dr. Hoskins for possible ablation. Seen at [facility] 11/04/2021atient is here today for a scheduled follow upAmiodarone Order sent to [facility] for testing due in May Reason for Referral Specialty Diagnoses / Procedures Referred By Purnima ferris Referred To Contact Cardiology Diagnoses ICD (implantable cardioverter-defibrillator) battery depletion Procedures Cardiac Device Check - In Clinic Margareth Nunez MD [address] [place] [address] Referral ID Status Reason Start Date Expiration Date Visits Requested Visits Authorized [id number] Pending Review Perform Procedure 3 07/26/2024 52 52 Additional Source Comments INFORMATION SOURCE (unrecogn ized section and content) DATE CREATED AUTHOR 10/19/2018 [facility] DATE CREATED AUTHOR AUTHOR'S ORGANIZ ATION 09/30/2021 [facility] DATE CREATED AUTHOR AUTHOR'S ORGANIZ ATION 02/07/2022 [facility] DATE CREATED AUTHOR AUTHOR'S ORGANIZ ATION 04/26/2022 [facility] DATE CREATED AUTHOR AUTHOR'S ORGANIZ ATION 02/06/2023 [facility] DATE CREATED AUTHOR AUTHOR'S ORGANIZ ATION 03/16/2023 [facility] DATE CREATED AUTHOR AUTHOR'S ORGANIZ ATION 07/05/2023 [facility] DATE CREATED AUTHOR AUTHOR'S ORGANIZ ATION 08/15/2023 [facility] DATE CREATED AUTHOR AUTHOR'S ORGANIZ ATION 08/29/2023 [facility] DATE CREATED AUTHOR AUTHOR'S ORGANIZ ATION 09/03/2023 [facility] Source Comments (unrecognize d section and content) In the event this informatio n is protected by the Federal Confidentiality of Alcohol and Drug Abuse Patient Records regulations: The Federal rules restrict any use of the information to criminally investigate or prosecute any alcohol or drug abuse patient.[facility] the event this information is protected by the Federal Confidentiality of Alcohol and Drug Abuse Patient Records regulations: The Federal rules restrict any use of the information to criminally investigate or prosecute any alcohol or drug abuse patient.[facility] the event this information is protected by the Federal Confidentiality of Alcohol and Drug Abuse Patient Records regulations: The Federal rules restrict any use of the information to criminally investigate or prosecute any alcohol or drug abuse patient.[facility] the event this information is protected by the Federal Confidentiality of Alcohol and Drug Abuse Patient Records regulations: The Federal rules restrict any use of the information to criminally investigate or prosecute any alcohol or drug abuse patient.[facility] the event this information is protected by the Federal Confidentiality of Alcohol and Drug Abuse Patient Records regulations: The Federal rules restrict any use of the information to criminally investigate or prosecute any alcohol or drug abuse patient.[facility] the event this information is protected by the Federal Confidentiality of Alcohol and Drug Abuse Patient Records regulations: The Federal rules restrict any use of the information to criminally investigate or prosecute any alcohol or drug abuse patient.[facility] the event this information is protected by the Federal Confidentiality of Alcohol and Drug Abuse Patient Records regulations: The Federal rules restrict any use of the information to criminally investigate or prosecute any alcohol or drug abuse patient.[facility] the event this information is protected by the Federal Confidentiality of Alcohol and Drug Abuse Patient Records regulations: The Federal rules restrict any use of the information to criminally investigate or prosecute any alcohol or drug abuse patient.[facility] the event this information is protected by the Federal Confidentiality of Alcohol and Drug Abuse Patient Records regulations: The Federal rules restrict any use of the information to criminally investigate or prosecute any alcohol or drug abuse patient.[facility] the event this information is protected by the Federal Confidentiality of Alcohol and Drug Abuse Patient Records regulations: The Federal rules restrict any use of the information to criminally investigate or prosecute any alcohol or drug abuse patient.[facility] the event this information is protected by the Federal Confidentiality of Alcohol and Drug Abuse Patient Records regulations: The Federal rules restrict any use of the information to criminally investigate or prosecute any alcohol or drug abuse patient.[facility] the event this information is protected by the Federal Confidentiality of Alcohol and Drug Abuse Patient Records regulations: The Federal rules restrict any use of the information to criminally investigate or prosecute any alcohol or drug abuse patient.[facility] the event this information is protected by the Federal Confidentiality of Alcohol and Drug Abuse Patient Records regulations: The Federal rules restrict any use of the information to criminally investigate or prosecute any alcohol or drug abuse patient.[facility] the event this information is protected by the Federal Confidentiality of Alcohol and Drug Abuse Patient Records regulations: The Federal rules restrict any use of the information to criminally investigate or prosecute any alcohol or drug abuse patient.[facility] the event this information is protected by the Federal Confidentiality of Alcohol and Drug Abuse Patient Records regulations: The Federal rules restrict any use of the information to criminally investigate or prosecute any alcohol or drug abuse patient.[facility] the event this information is protected by the Federal Confidentiality of Alcohol and Drug Abuse Patient Records regulations: The Federal rules restrict any use of the information to criminally investigate or prosecute any alcohol or drug abuse patient.[facility] the event this information is protected by the Federal Confidentiality of Alcohol and Drug Abuse Patient Records regulations: The Federal rules restrict any use of the information to criminally investigate or prosecute any alcohol or drug abuse patient.[facility] the event this information is protected by the Federal Confidentiality of Alcohol and Drug Abuse Patient Records regulations: The Federal rules restrict any use of the information to criminally investigate or prosecute any alcohol or drug abuse patient.[facility] the event this information is protected by the Federal Confidentiality of Alcohol and Drug Abuse Patient Records regulations: The Federal rules restrict any use of the information to criminally investigate or prosecute any alcohol or drug abuse patient.[facility] the event this information is protected by the Federal Confidentiality of Alcohol and Drug Abuse Patient Records regulations: The Federal rules restrict any use of the information to criminally investigate or prosecute any alcohol or drug abuse patient.[facility] Care Teams (unrecognized sec tion and content) Legal Advisor Relationship Specialty Start Date End Date Robe Alonso (Fax) PCP - General 04/16/10 Nadir Hoskins [address] [place] [address] Physician Cardiology 10/13/18 Margareth Nunez [address] [place] [phone] Cardiology 10/14/18 Violeta Chan MD [address] [place] [address] Balloon Sander Cardiology 07/04/20 Violeta Chan MD [address] [place] [address] Primary Staff Physician Cardiology 02/11/21 Legal Advisor Relationship Specialty Start Date End Date Robe Alonso (Fax) PCP - General 04/16/10 Nadir Hoskins [address] [place] [address] Physician Cardiology 10/13/18 Margareth Nunez [address] [place] [phone] Cardiology 10/14/18 Violeta Chan MD [address] [place] [address] Balloon Sander Cardiology 07/04/20 Violeta Chan MD [address] [place] [address] Primary Staff Physician Cardiology 02/11/21 Team Status: Active Member Role Status Dates Darian Smiley DO Attending Provider Active Team Status: Active Member Role Status Dates PHYSICIAN NO FAMILY Primary Care Provider Active Legal Advisor Relationship Specialty Start Date End Date Robe Alonso (Fax) PCP - General 04/16/10 Nadir Hoskins [address] [place] [address] Physician Cardiology 10/13/18 Margareth Nunez MD Cardiology 10/14/18 Violeta Chan MD [address] [place] [address] Balloon Sander Cardiology 07/04/20 Violeta Chan MD [address] [place] [address] Primary Staff Physician Cardiology 02/11/21 Legal Advisor Relationship Specialty Start Date End Date Robe Alonso (Fax) PCP - General 04/16/10 Nadir Hoskins [address] [place] [address] Physician Cardiology 10/13/18 Margareth Nunez MD [address] [address] Cardiology 10/14/18 Violeta Chan MD [address] [place] [address] Balloon Sander Cardiology 07/04/20 Violeta Chan MD [address] [place] [address] Primary Staff Physician Cardiology 02/11/21 Legal Advisor Relationship Specialty Start Date End Date Robe Alonso (Fax) PCP - General 04/16/10 Nadir Hoskins [address] [place] [address] Physician Cardiology 10/13/18 Margareth Nunez MD [address] [address] Cardiology 10/14/18 Violeta Chan MD [address] [place] [address] Balloon Sander Cardiology 07/04/20 Violeta Chan MD [address] [place] [address] Primary Staff Physician Cardiology 02/11/21 Legal Advisor Relationship Specialty Start Date End Date Robe Alonso (Fax) PCP - General 04/16/10 Nadir Hoskins [address] [address] Physician Cardiology 10/13/18 Margareth Nunez MD [address] [place] [address] Cardiology 10/14/18 Violeta Chan MD [address] [place] [address] Balloon Sander Cardiology 07/04/20 Violeta Chan MD [address] [facility] [place] [address] Primary Staff Physician Cardiology 02/11/21 Legal Advisor Relationship Specialty Start Date End Date Anju Cuevas, DMD [address] [facility] [place], [place] [id number] Physician Oral & Maxillofacial Surgery 06/04/20 Legal Advisor Relationship Specialty Start Date End Date Robe Alonso (Fax) PCP - General 04/16/10 Nadir Hoskins [address] [address] Physician Cardiology 10/13/18 Margareth Nunez MD [address] [address] Cardiology 10/14/18 Violeta Chan MD [address] [place] [address] Balloon Sander Cardiology 07/04/20 Violeta Chan MD [address] [place] [address] Primary Staff Physician Cardiology 02/11/21 Legal Advisor Relationship Specialty Start Date End Date Robe Alonso (Fax) PCP - General 04/16/10 Nadir Hoskins [address] [address] Physician Cardiology 10/13/18 Margareth Nunez MD [address] [address] Cardiology 10/14/18 Violeta Chan MD [address] [place] [address] Balloon Sander Cardiology 07/04/20 Violeta Chan MD [address] [place] [address] Primary Staff Physician Cardiology 02/11/21 Legal Advisor Relationship Specialty Start Date End Date Robe Alonso (Fax) PCP - General 04/16/10 Nadir Hoskins [address] [place] [address] Physician Cardiology 10/13/18 Margareth Nunez MD [address] [address] Cardiology 10/14/18 Violeta Chan MD [address] [place] [address] Balloon Sander Cardiology 07/04/20 Violeta Chan MD [address] [place] [address] Primary Staff Physician Cardiology 02/11/21 Legal Advisor Relationship Specialty Start Date End Date Robe Alonso (Fax) PCP - General 04/16/10 Nadir Hoskins DO [address] [address] Physician Cardiology 10/13/18 Margareth Nunez MD [address] [place] [address] Cardiology 10/14/18 Violeta Chan MD [address] [place] [address] Balloon Sander Cardiology 07/04/20 Violeta Chan MD [address] [place] [address] Primary Staff Physician Cardiology 02/11/21 Legal Advisor Relationship Specialty Start Date End Date Robe Alonso PCP - General 04/16/10 Nadir Hoskins DO [address] [place] [address] Physician Cardiology 10/13/18 Margareth Nunez MD [address] [place] [address] Cardiology 10/14/18 Violeta Chan MD [address] [place] [address] Balloon Sander Cardiology 07/04/20 Violeta Chan MD [address] [place] [address] Primary Staff Physician Cardiology 02/11/21 Legal Advisor Relationship Specialty Start Date End Date Robe Alonso (Fax) PCP - General 04/16/10 Nadir Hoskins DO [address] [place] [address] Physician Cardiology 10/13/18 Margareth Nunez MD [address] [place] [address] Cardiology 10/14/18 Violeta Chan MD [address] [place], [place] [id number] Balloon Sander Cardiology 07/04/20 Violeta Chan MD [address] [place], [place] [address] Primary Staff Physician Cardiology 02/11/21 Team Status: Active Member Role Status Dates Amanda Grace APRN CERTIFIED DIALYSIS TECHNICIAN-C Primary Care Provider Active Team Status: Inactive Member Role Status Dates Margareth Nunez MD Attending Provider Active Amanda Grace APRN CERTIFIED DIALYSIS TECHNICIAN-Cici Primary Care Provider Active Legal Advisor Relationship Specialty Start Date End Date Robe Alonso (Fax) PCP - General 04/16/10 Nadir Hoskins DO [address] [place] [address] Physician Cardiology 10/13/18 Margareth Nunez MD [address] [place] [address] Cardiology 10/14/18 Violeta Chan MD [address] [place] [address] Balloon Sander Cardiology 07/04/20 Violeta Chan MD [address] [place] [address] Primary Staff Physician Cardiology 02/11/21 Legal Advisor Relationship Specialty Start Date End Date Shaikh Rojas MD [address] [place] [address] PCP - General 04/24/22 Jameel Valenzuela, MOLD SANDER-IRRIGATOR [address] [facility], [address] [address] Nurse Practitioner Cardiology 09/02/23 Margareth Nunez MD [address] [facility], [address] [address] Consulting Physician Cardiology 09/02/23 Legal Advisor Relationship Specialty Start Date End Date Shaikh Rojas MD [address] [place] [address] PCP - General 04/24/22 Jameel Valenzuela, MOLD SANDER-IRRIGATOR [address] [facility], [address] [address] Nurse Practitioner Cardiology 09/02/23 Margareth Nunez MD [address] [facility], [address] [address] Consulting Physician Cardiology 09/02/23 REASON FOR VISIT (unrecogniz ed section and content) Reason Onset Date Comments Opened In Error 07/27/2022 Reason Comments Research IRB [id number] TRIM-AF Specialty Diagnoses / Procedures Referred By Contac t Referred To Contact Cardiology Diagnoses ICD (implantable cardioverter-defibrillator) battery depletion Procedures Cardiac Device Check - In Clinic Margareth Nunez MD [address] [facility], [address] [place] [address] Referral ID Status Reason Start Date Expiration Date Visits Requested Visits Authorized [id number] Pending Review Perform Procedure 3 07/26/2024 52 52 Goals (unrecognized section and content) Goals may be documented in a n alternate section FOR RECORDS PERTAINING TO PATIENTS WHO ARE OR HAVE BEEN ENROLLED IN A CHEMICAL DEPENDENCY/SUBSTANCEABUSE PROGRAM, SOME INFORMATION MAY BE OMITTED. This clinical summary was aggregated from multiple sources. Caution should be exercised in using it in the provision of clinical care. This summary normalizes information from multiple sources, and as a consequence, information in this document may materially change the coding, format and clinical context of patient data. In addition, data may be omitted in some cases. CLINICAL DECISIONS SHOULD BE BASED ON THE PRIMARY CLINICAL RECORDS. [facility]. provides no warranty or guarantee of the accuracy or completeness of information in this document.
[2023-09-05] MEDS: KETOROLAC TROMETHAMINE 30 MG/ML VIAL 15 MG IM (12:53)
[2023-09-05 12:56] VITALS: BP 100/71; PULSE 82; RESP 20; O2SAT 100
== END 2023-09-05 12:58 | disposition home or self-care (01) ==
LOC: ER 12:46
PROVIDERS: Emergency Provider Emergency Medicine
DX: L08.9 Local infection of the skin and subcutaneous tissue, unspecified (principal); Z79.899 Other long term (current) drug therapy; Z79.01 Long term (current) use of anticoagulants; Z79.890 Hormone replacement therapy; F41.1 Generalized anxiety disorder; G25.81 Restless legs syndrome; E03.9 Hypothyroidism, unspecified; E78.5 Hyperlipidemia, unspecified; I25.10 Atherosclerotic heart disease of native coronary artery without angina pectoris; I48.0 Paroxysmal atrial fibrillation; I11.0 Hypertensive heart disease with heart failure; I50.22 Chronic systolic (congestive) heart failure; Z95.0 Presence of cardiac pacemaker; I25.2 Old myocardial infarction; Z87.01 Personal history of pneumonia (recurrent); Z90.710 Acquired absence of both cervix and uterus; Z95.2 Presence of prosthetic heart valve; Z87.891 Personal history of nicotine dependence
CPT/HCPCS: 99284; J1885

== ENCOUNTER 2023-09-14 10:41 | Outpatient (OUT) | payer MEDICARE, MEDICAID, SELFPAY ==
[2023-09-14 11:49] LABS: Anion Gap 12.7; BUN Creatinine Ratio 17.9; Carbon Dioxide 27.6 mmol/L (21.0-32.0); Chloride 105 mmol/L (98-107); Estimated GFR (African America >60 (>=60); Estimated GFR (Non-African Ame 54 (>=60); Glucose 113 mg/dL (74-106); Potassium 3.3 mmol/L (3.5-5.1); Sodium 142 mmol/L (136-145)
== END 2023-09-14 10:42 | disposition home or self-care (01) ==
LOC: LAB 10:44
DX: I50.22 Chronic systolic (congestive) heart failure (principal)
CPT/HCPCS: 36415; 80048; 83880

== ENCOUNTER 2023-09-23 11:02 | Outpatient (OUT) | payer MEDICARE, MEDICAID, SELFPAY ==
--- OUTSIDE RECORDS SUMMARY | 2023-09-23 11:12 | XMS_ITS | CCD ---
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 Name Role Phone MAYRA, MARGARETH Admitting Unavailable MAYRA, MARGARETH Attending Unavailable GAVIN, ROBE Primary Care Unavailable MAYRA, MARGARETH Admitting Unavailable MAYRA, MARGARETH Attending Unavailable GAVIN, ROBE Primary Care Unavailable MAYRA, MARGARETH Admitting Unavailable MAYRA, MARGARETH Attending Unavailable GAVIN, ROBE Primary Care Unavailable AGUILA VASQUEZ Attending UnavailROBE Marion Primary Care Unavailable JAMEEL VALENZUELA Attending UnavailROBE Espinal Primary Care Unavailable MAYRA, MARGARETH Admitting Unavailable MAYRA, MARGARETH Attending Unavailable GAVIN, ROBE Primary Care Unavailable Darian Smiley Attending Provider Robe Waters Primary Care Provider Robe Waters Admit Provider Robe Waters Attending Provider [phone] Darian Smiley Attending Provider [phone] Robe Waters Primary Care Provider Robe Waters Provider Robe Waters Attending Provider [phone] Unavailable Unavailable PROVIDER, UNKNOWN Attending Unavailable PROVIDER, UNKNOWN Admitting Unavailable PATIENT, SELF Referring Unavailable None, No PCP Unavailable Unavailable Robe Waters Primary Care Provider Nadir Hoskins Unavailable Mayra, Margareth J Unavailable Dustin CLAY, Violeta Unavailable Dustin CLAY Violeta Unavailable Jeane Dykes Unavailable DO Darian Smiley Attending Provider MD Robe Waters Primary Care Provider MD Robe Waters Attending Provider [phone] MD Robe Waters Referring Provider [phone] DO Hira Lay Emergency Provider MD Ken Putnam Admit Provider [phone] MD Ken Rizo Attending Provider [phone] Robe Waters Primary Care Provider [phone] Nadir Hoskins Unavailable [phone] Margareth Nunez Unavailable Violeta Chan MD Unavailable [phone] Dustin CLAY Violeta Unavailable [phone] DO Darian Smiley Attending Provider Crystal, Roy Unavailable Robe Waters Primary Care Provider Nadir Hoskins Unavailable [phone] Margareth Nunez MD Unavailable Robe Waters Primary Care Provider [phone] Nadir Hoskins Unavailable Margareth Nunez MD Unavailable Dustin CLAY Violeta Unavailable Dustin CLAY Violeta Unavailable Cuevas DMD, Anju Unavailable FAWWAD, ROY H Admitting Unavailable FAWWAD, [...] H Primary Care Unavailable DR JC BRAVO Consulting Unavailable FAWWAD, ROY H Consulting Unavailable FAWWAD, [...] SANDRA Attending Unavailable KRYSTYNA SANDRA Admitting Unavailable SACHA, FAUSTO Consulting Unavailable KRYSTYNA SANDRA Consulting Unavailable FAWWAD, [facility] Primary Care Unavailable JEAN CLAUDE GUZMAN Attending Unavailable SHELLY, DR JC Car Consulting Unavailable JEAN CLAUDE GUZMAN Admitting Unavailable JEAN CLAUDE GUZMAN Consulting Unavailable Tenzin Alejo Consulting Unavailable [place], DR Juan Miguel Gamez Consulting Unavailable [place], DR Juan Miguel Gamez Attending Unavailable [place], DR Juan Miguel Gamez Admitting Unavailable [facility], [facility] Primary Care Unavailable SHELLY, DR JC Car Consulting Unavailable Drew, Ms. Inna Reed Attending Unavai lable Mayra, Dr. Margareth Llanes Attending Unavailab le Mayra, Dr. Margareth Llanes Referring Unavailab le Mayra, Dr. Margareth Llanes Attending Unavailab le Mayra, Dr. Margareth Llanes Referring Unavailab le Gato, Dr. Nadir Ann Attending Unava ilable Gato GUSTAFSON, Nadir Ann Unavailable Dustin CLAY, Violeta Unavailable Dustin CLAY, Violeta Unavailable Arjun EPPS Attending Unavailable Arjun EPPS Attending Unavailable Amanda Grace Unavailable MD Margareth Nunez Attending Provider PETE Grace Primary Care Provider Amanda Grace Primary Care Unavailable Margareth Nunez Attending Unavailable Margareth Nunez Admitting Unavailable Shaikh Rojas MD Primary Care Provider Bianca FREEMAN-Jameel VASQUEZ Unavailable Margareth Nunez MD Unavailable JAMEEL VALENZUELA Attending Unavaila bud ROJAS ROY Primary Care Unavailable MARGARETH NUNEZ Referring Unavailable CRYSTAL ROY Primary Care Unavailable MARGARETH NUNEZ Admitting Unavailable MARGARETH NUNEZ Attending Unavailable CRYSTAL ROY Primary Care Unavailable Unavailable Unavailable Unavailable Allergies Allergy Classification Reported Allergen(s) Allergy Type Date of Onset Reaction(s) Facility Adhesive Tape (1 source) Adhesive Tape Substance Allergy 11-24-19 21 Unknown Reaction [facility] Ondansetron (1 source) Ondansetron Drug Allergy 11-24-19 21 Agitated [facility] Opioid Agonists (2 sources) fentaNYL Drug Allergy 11-24-19 21 Palpitations, Unknown Reaction [facility] (20 sources) Adhesive Tape; 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: [adhesive tape] Propensity to adverse reactions 08-16-20 20 Unknown Reaction, Redness of Skin [facility] (20 sources) fentaNYL; 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: [fentanyl] Drug Allergy 09-21-19 20 Headache, Other [facility] Repository (20 sources) Morphine; 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: [morphine] Drug Allergy 04-26-20 12 Vomiting, GI intolerance, Nausea/vomiting [facility] (10 sources) Ondansetron; 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: [ONDANSETRON] Drug Allergy 09-21-19 20 Agitated [facility] Repository (20 sources) erythromycin base; 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: [Erythromycin Base] Allergy to substance 07-08-20 04 Other: See Comments [facility] (20 sources) Erythromycin; 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: [erythromycin] Drug Allergy 06-05-20 02 Nausea Only, Unknown, Nausea/vomiting [facility] Repository (20 sources) levoFLOXacin; 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: [Levaquin] Drug Allergy 08-31-19 24 Other, Palpitations [facility] 250 DO Work Phone: (20 sources) Ondansetron; 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: [Zofran] Drug Allergy [facility] Repository (20 sources) varenicline; 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: [Chantix TABS] Drug Allergy 08-31-19 24 Other, [facility] Work Phone: (20 sources) Adhesive Tape Propensity to adverse reactions to substance 07-08-20 12 Rash [facility] (20 sources) Ondansetron Drug Allergy 10-13-19 19 Intolerance, Other [facility] (20 sources) Latex Drug allergy Unknown [facility] Other (4 sources) Adhesive Tape-Silicones; 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: [ADHESIVE TAPE-SILICONES] Drug Allergy 08-31-19 24 Other [facility] (2 sources) levoFLOXacin; 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: [LEVOFLOXACIN] Drug Allergy 08-31-19 24 [place] [address] Repository (2 sources) Ondansetron; 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: [ONDANSETRON HCL] Drug Allergy 08-31-19 24 [facility] Repository (2 sources) varenicline; 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: [VARENICLINE] Drug Allergy 08-31-19 [facility] Repository Medications Current Medications Medication Drug Class(es) Dates Sig (Normalized) Sig (Original) acetaminophen 300 mg / butalbital 50 mg / caffeine 40 mg oral capsule (20 sources) Barbiturate, Central Nervous System Stimulant, Methylxanthine Start: 07-19-2020 Butalbital-Aceta minophen-Caff (Fioricet) 50-300-40 mg capsule Active 1 CAP PO As Directed July 19, 2020 7:56am Start: 07-19-2020 take 1 capsule by mo uth twice daily Kciekbeoyy-Vpdggjxnsyhft-Djry (Fioricet) 50-300-40 mg capsule Active 1 CAP PO Twice daily July 19, 2020 12:00am Start: 06-07-2020 End: 06-15-2020 take 1 tablet by mouth every eight hours Iopwckjkmj-Egnvwcymzuukc-Cxsx Discontinu ed 1 TAB PO Q8H June 06, 2020 11:00pm June 15, 2020 10:49am Start: 04-26-2020 End: 06-07-2020 take 1 capsule by mouth every eight hours as needed Prahhngzai-Uttbadtirsmcs-Blvc (Fioricet) 50-300-40 mg capsule Discontinued 1 CAP PO Q8H April 25, 2020 11:00pm June 07, 2020 5:06pm TK ONE C PO Q 8 H PRN Start: 09-01-2019 End: 04-26-2020 take 1 tablet by mouth three times daily Mrfxhijbmj-Kftxebyfmdihq-Ksgj Discontinu ed 1 TAB PO Three times daily September 01, 2019 12:00am April 26, 2020 1:48pm take 1 capsule by mo uth every four hours Fioricet 50-300-40 MG 1 capsule as neede d Orally every 4 hrs for 30 days PRN Active [id number] actuat albuterol 0.09 mg/actuat metered dose inhaler (6 sources) beta2-Adrenergic Agonist Start: 07-20-2023 albut christine 90 mcg/actuation inhaler take 1 puff(s) by mo uth every four hours as needed Albuterol Sulfate HFA 108 (90 Base) MCG/ ACT INHALE ONE (1) PUFF BY MOUTH EVERY 4 HOURS NEEDED Inhalation for 30 Days Active take 1 puff(s) by mo [facility] every four hours as needed Albuterol Sulfate [...] 07/23/2020 Active take 1 tablet by augusto every twenty-four hours Amiodarone HCl 400 MG 1 tablet Orally Once a day for 90 days Active Comment on above: Take 1 tablet by augusto twice daily. Boost - (5 sources) Boost [...] 2020 10:55am FLUoxetine 40 mg oral capsule (6 sources) Serotonin Reuptake Inhibitor Start: 07-13-2023 take 1 capsule by mouth once daily FLUoxetine (PROzac) 40 mg capsule Take 1 capsule (40 mg) by mouth once daily. 0 07/13/2023 Active levothyroxine sodium 0.075 mg oral tablet (6 sources) l-Thyroxine Start: 07-20-2023 take 1 tablet [...] days Active LORazepam 0.5 mg oral tablet (8 sources) Benzodiazepine Start: 11-12-2021 take 1 tablet by mouth three times daily as needed Ativan 0.5 MG 1 tablet as needed Orally Three times a day for 30 days Aug, Active magnesium oxide 400 mg oral capsule [...] 2020 1:56pm take 1 tablet by augusto th every eight hours Comment on above: Take [...] Start: 04-16-2022 take 1 tablet by augusto th once daily Potassium Chloride [facility] 20 [...] 2020 5:06pm take 1 capsule by mo [facility] every twelve hours Potassium Chloride ER 10 MEQ 1 capsule with food Orally Twice a day Active Potassium Chlori de ER 20 MEQ Oral Tablet Extended Release TAKE 2 TALBET TWICE DAILY X 2 DAYS 12/30 AND 12/31/2021, THEN 2 TABLETS DAILY Quantity: 2 Refills: 0 Ordered: 30-Dec-2021 Bianca FREEMAN-CERTIFIED PARALEGAL, Jameel Active take 1 tablet by augusto th [...] Ropinirole Discontinued 2 MG PO As Directed 90 November 24, 2020 11:00pm October 14, 2021 [...] 09/30/2021 Active take 3 tablets by mo [facility] at bedtime rOPINIRole HCl - 0.25 MG Oral Tablet take 3 tablets (75mg) at bedtime Quantity: 0 Refills: 0 Ordered: 28-Nov-2021 DO Active take 1 tablet by augusto th twice daily rOPINIRole HCl - 2 MG Oral Tablet TAKE 1 TABLET TWICE DAILY. Quantity: 0 Refills: 0 Ordered: 20-Oct-2021 DO Active Comment on above: Take 1 tablet by augusto th once daily at dinner and take 2 [...] Comment on above: Take 2 tablets by [facility] once daily. traZODone hydrochloride 50 mg oral [...] 26, 2020 1:54pm take 2 tablets by [facility] every twenty-four hours traZODone HCl 100 MG 2 tablets Orally Once a day Active take 2 tablets by [facility] every twenty-four hours vancomycin 125 mg oral [...] 3mg dose Jun, Active Start: 11-13-2021 Warfarin (Jant oven) 5 mg tablet Active 7.5 MG [...] Start: 11-23-2020 take 1 tablet by augusto once daily warfarin (COUMADIN) 5 mg tablet Take 1 tablet by mouth once daily. 90 tablet 1 01/15/2021 Active Start: 11-23-2020 Warfarin ( oven) 5 mg tablet Active 5 MG [...] 5 MG Oral Tablet as directed per [facility] Coumadin clinic Quantity: 0 Refills: 0 Ordered: 31-Dec-2021 DO Active Warfarin 2mg 2 m g as directed orally Active Warfarin Sodium 5 MG Oral Tablet as directed per [facility] Coumadin clinic Quantity: 0 Refills: 0 Ordered: 20-Oct-2021 DO Active Comment on above: Take 1 tablet by augusto once daily. Completed/Discontinued Medications Medication Drug Class(es) Dates Sig (Normalized) Sig (Original) acetaminophen 325 mg oral tablet (8 sources) Start: 06-07-2020 End: 11-23-2020 take 2 tablets by mouth every four hours Acetaminophen (Tylenol) 325 mg tablet Discontinued 650 MG PO Q4H June 06, 2020 11:00pm November 23, 2020 3:58pm acetaminophen 325 mg / HYDROcodone bitartrate 5 mg oral tablet (20 sources) Opioid Agonist Start: 06-07-2020 End: 07-19-2020 take 1.5 tablets by mouth three times daily Hydrocodone-Acetami nophen Discontinued 1.5 TAB PO Three times daily June 15, 2020 10:46am July 19, 2020 7:53am Start: 06-05-2020 End: 06-07-2020 take 1 tablet by mouth once daily Hydrocodone-Acetaminophen (Kennedy) 5-325 mg Tablet Discontinued 1 TAB PO [...] Sulfate Discontinued 324 MG PO Twice daily November 24, 2020 11:00pm October 14, 2021 [...] 2020 12:33am furosemide 20 mg oral tablet (12 sources) Loop Diuretic Start: 04-26-2020 End: 04-26-2020 Furosemide Discontinued TABLET April 25, 2020 11:00pm April 26, 2020 2:20pm take 1 tablet by mouth twice silvia ly Furosemide 40 MG TAKE 1 TABLET BY MOUTH TWICE DAILY for 30 Active 24 hr isosorbide mononitrate 30 mg extended release oral tablet (14 sources) Nitrate Vasodilator Start: 11-22-2021 take 1 [...] mg extended release oral capsule (20 sources) T-xzshuu-Q-asparta te Receptor Antagonist Start: 09-07-2019 End: 10-14-2021 [...] Refills: 3 Ordered: 24-Apr-2022 Margareth Nunez MD Active metroNIDAZOLE 500 mg oral tablet (4 sources) Nitroimidazole Antimicrobial Start: 10-17-2021 metroNIDAZOLE 500 MG Oral Tablet Quantity: 8 Refills: 0 Ordered: 17-Oct-2021 DO Start : 17-Oct-2021 Complete Start: 10-17-2021 End: 10-30-2021 take 500 mg by mouth twice daily Metronidazole Discontinued 500 MG PO Twice daily 8 4 October 17, 2021 12:00am October 30, 2021 [...] 1 tablet by augusto th twice daily. spironolactone 25 mg oral tablet [...] 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: [Other specified counseling] Episodic Anxiety disorders (8 sources) Other specified anxiety disorders; 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: [Generalized [...] myocardial infarction; 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: [Atherosclerotic heart disease of kaw coronary artery without angina pectoris] Onset: 8 [...] dementia, and amnestic and other cognitive disorders (8 sources) Dementia; 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: [Unspecified dementia without behavioral [...] epilepticus] Onset: 4 09-02-2023 Chronic Esophageal disorders (7 sources) Gastroesophageal reflux disease; 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: [Gastro-esophageal reflux [...] 2 06-23-2017 Chronic Other aftercare (1 source) long term care administrator (current) use of aspirin Onset: 9 Episodic Other aftercare (19 sources) Drug therapy finding; 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: [Long-term (current) use of other medications] Episodic Other aftercare (17 sources) Encounter for therapeutic drug level monitoring; 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: [Medication monitoring encounter Z51.81] Onset: 1 Resolved: 2 Episodic Other aftercare (1 source) long term care administrator (current) use of anticoagulants; 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: [CARE HOME CURRNT USE 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] Onset: 3 Episodic Other aftercare (4 sources) Anticoagulant effect; 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: [long term care administrator (current) use of anticoagulants] Episodic Other and [...] Other hereditary and degenerative nervous system conditions (6 sources) Restless legs; 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: [Restless legs syndrome] [...] Onset: 2 07-13-2012 Chronic Pulmonary heart disease (4 sources) H/O: pulmonary embolus; 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: [Personal history [...] uncomplicated] Onset: 3 08-25-2021 Chronic Thyroid disorders (5 sources) Hypothyroidism, unspecified; 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: [Acquired hypothyroidism] Onset: 8 Chronic Unclassified (1 source) Body mass index (BMI) 32.0-32.9, adult Onset: 9 Unclassified (1 source) long term care administrator (current) use of anticoagulants Onset: 8 Unclassified (1 source) Other nonrheumatic aortic valve disorders Onset: 8 Unclassified (1 source) Athscl heart disease of kaw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 ang pctrs Onset: 9 Unclassified (1 source) Unspecified convulsions Onset: 9 Unclassified (1 source) [facility] (current) use of antithrombotics/antipl atelets Onset: 8 [...] of automatic implantable cardiac defibrillator] Onset: 3 Unclassified (1 source) Other supraventricular tachycardia; 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: [Other supraventricular tachycardia] Onset: 4 Unclassified (1 source) Ventricular tachycardia, unspecified (CMS/HCC); 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: [Ventricular tachycardia, unspecified (CMS/HCC)] Onset: 4 Past or Other Problems Problem Classification Problem Date Documented Date Episodic/Chronic Complication of device; implant or graft (20 sources) Dysfunction of implantable cardiac defibrillator lead; 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: [Breakdown (mechanical) of cardiac electrode, initial encounter] Onset: 07-24-2020 07-24-2020 Episodic Deficiency and other anemia (7 sources) Iron deficiency anemia, unspecified; 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: [Iron deficiency anemia, unspecified] Onset: 04-20-2022 Episodic Other aftercare (1 source) Other alf (current) drug therapy; 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: [OTH TACK WELDER CURRENT DRUG THERAPY] Onset: 04-20-2022 Episodic Other [...] 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: [LOW BACK PAIN, UNSPECIFIED] Onset: 10-26-2022 Unclassified (1 source) Other supraventricular tachycardia; 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: [Other supraventricular tachycardia] Onset: 09-02-2023 Unclassified (1 source) Ventricular tachycardia, unspecified (CMS/HCC); 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: [Ventricular tachycardia, unspecified (CMS/HCC)] Onset: 09-02-2023 Results Test Name Value Interpretation Reference Range Facility Cardiac Device Check - In Cl inicOrdered By: Margareth Nunez on 09-02-2023 [facility] Work Phone: Cardiac Device Check - In Cl inicon 09-02-2023 Radiology Study observation (narrative) [facility] Work Phone: CNPOksana 08-03-2023 CNPN Telephone (EPSMN) ----- ESSENCE VINCENT ([id number]) 1970 F Date Time Provider Department 08/03/23 DAVID OSEI [facility] During your visit today, we recorded the [...] Osei MD Procedure Requested: ICD change CPT: 09612 Multi Lead Date of Last HANDP? N/A Indications / Dx for Procedure: VT Procedure Time Frame: 1 month Estimated length of case: 1 HOUR Device Company: [employer] Patient: No Type of Bed: [...] same results as previous. Message left on POFranco's voicemail that she needs to return call [...] HCL (PF)) 10/13/2018 5 - Intolerance Comments: yonathanttdon Date Reviewed: 11/14/2021 Reviewed by: Cyndi Hairston RN - Fully Assessed Reason for Visit: Schedule Surgery [1330] Cmt: EPS- BLANKET CUTTING MACHINE OPERATOR-D Change Out Prescriptions as of 08/27/2023 - [...] [I34.0] 07/16/2012 Pulmonary hypertension [I27.20] Dual chamber BLANKET CUTTING MACHINE OPERATOR-D [Z95.810] 07/23/2020 Primary hypertension [I10] Nicotine use disorder [F17.200] Exercise-induced asthma [J45.990] Anemia [D64.9] 10/29/2011 07/23/2020 H/o GERD [K21.9] 07/23/2020 Migraines [G43.909] H/o Depression/Anxiety/Sleep disturbance [F32.* Preop testing [Z01.818] 07/08/2012 07/23/2020 SUMMARY (more content not included)... Normal [facility] CNPNon 07-28-2023 CNPN Telephone (CARDMN) ----- ESSENCE VINCENT ([id number]) 1970 F Date Time Provider Department 07/28/23 DAVID OSEI During your visit today, we recorded the following information about you: Maria Glover, NAYLA 07/28/2023 1:07 PM Addendum 07/28/23, 11:50 am: [...] HCL (PF)) 10/13/2018 5 - Intolerance Comments: yonathanttdon Date Reviewed: 11/14/2021 Reviewed by: Cyndi Hairston [...] LD 11-5-12 Problem List As Of Date 07/28/2023 Noted Resolved Urinary tract infection of [P39.3] 07/26/2004 07/23/2020 Fitting and adjustment of orthopedic device [Z4*04/29/2010 07/23/2020 CAD (coronary artery disease) [I25.10] Remote STEMI (1998) [I21.3] 07/23/2020 Cardiogenic shock (HCC) [R57.0] 07/23/2020 Heart failure, systolic, acute on chronic (HCC)* 07/23/2020 Heart failure, systolic and diastolic, chronic * MR (mitral regurgitation) [I34.0] 07/16/2012 Pulmonary hypertension [I27.20] Dual chamber BLANKET CUTTING MACHINE OPERATOR-D [Z95.810] 07/23/2020 Primary hypertension [I10] Nicotine use disorder [F17.200] Exercise-induced asthma [J45.990] Anemia [D64.9] 10/29/2011 07/23/2020 H/o GERD [K21.9] 07/23/2020 Migraines [G43.909] H/o Depression/Anxiety/Sleep disturbance [F32.* Preop testing [Z01.818] 07/08/2012 07/23/2020 SUMMARY [V999.95] 07/11/2012 07/23/2020 Pulmonary hypertension, moderate to severe (HCC*2012 Other acute postoperative pain [G89.18] 07/13/2012 07/16/2012 Pulmonary insuff [[id number]] 07/13/2012 07/23/2020 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 [...] Status:Closed by MARIA GLOVER on 07/28/23 Normal [facility] ICD REMOTE CHECKon 3 AV Delay Adaptive Paced Minimum (ms) 350 ms [facility] AV Delay Adaptive Rate Maximum (bpm) 90 {beats}/min [facility] AV Delay Adaptive Rate Minimum (bpm) 75 {beats}/min [facility] AV Delay Adaptive Sensed Minimum (ms) 250 ms [facility] AV Delay Adaptive Status ENABLED [facility] AV Delay Paced (ms) [address] [facility] AV Delay Sensed (ms) 70 ms [place] Battery Voltage 2.72 V [facility] Scott RA Pacing Amplitude (volts) 2 V [facility] Scott RA Pacing Polarity BI [facility] Scott RA Pacing Pulse Width (ms) 0.4 ms [facility] Scott RA Sensing Amplitude (mvolts) 0.3 mV [facility] Scott RA Sensing Blanking Period (ms) 150 ms [facility] Scott RA Sensing Polarity BI [facility] Scott RA Sensing Refractory Period (ms) 250 ms [facility] Scott RV Pacing Amplitude (volts) 2.25 V [facility] Scott RV Pacing Polarity BI [facility] Scott RV Pacing Pulse Width (ms) 0.4 ms [facility] Scott RV Sensing Amplitude (mvolts) 0.3 mV [facility] Scott RV Sensing Blanking Period (ms) 200 ms [facility] Scott RV Sensing Polarity BI [facility] Detection Configuration (Vent) 2 - Zone [facility] FastVT_Detection Interval 450 ms [facility] FastVT_Therapy Configuration 2 ATP(s) + 0 Shock(s) [facility] ICD AFIB DetectionStatus DISABLED [facility] ICD ATAF DetectionInterval ms 450 ms [facility] ICD ATAF DetectionStatus ENABLED [facility] ICD ATAF TherapyConfiguration 2 ATP(s) + 0 Shock(s) [facility] ICD FastVT DetectionStatus ENABLED [facility] ICD-ADLRATE_BPM 85 {beats}/min [facility] ICD-AMS EPISODES 133 {beats}/min [facility] ICD-ATP Episodes (Vent) 0 [facility] ICD-ATRIALFIBRILLATION 535 [facility] ICD-ATRIALTACHYCARDIA 535 [facility] ICD-ATRIALTACHYCARDIA 18 [facility] ICD-ATRIALTACHYCARDIA 9 [facility] ICD-Counters Cleared Date 09/23/2016 [facility] ICD-Device Mfg MDT [facility] ICD-Fast Ventricular Tachycardia 9 [facility] ICD-LEADIMPEDANCEATRIA L 342 ohm [facility] ICD-Percent Pacing (Atrial) 76.76 % [facility] ICD-Percent Pacing (Vent) 95.69 % [facility] ICD-PMT Intervention ENABLED [place] ICD-PVC Intervention ENABLED [place] ICD-Rate Modulation Acceleration Reaction 30 s [facility] ICD-Rate Modulation Deceleration Exercise [facility] ICD-Rate Modulation Linn 3 [facility] ICD-Rate Modulation Threshold MediumHigh [facility] ICD-Shocks Aborted (Vent) 0 [facility] IFO-EXRYBZ-JPCMYABTT 0 [place] ICD-SHOCKSABORTED 0 [facility] ICD-SHOCKSDELIVEREDVEN TRICULAR 0 [facility] ICD-Ventricular Fibrillation 0 [facility] Implant Date 07/03/2005 [facility] Implant Date 11/30/2002 [facility] Lead Impedance (LV) [address] [facility] Lead Impedance (RV) [address] [facility] Lead Impedance High Voltage 59 ohm [facility] Lead1 Mfg MDT [facility] Lead2 Mfg MDT [facility] Lead3 Mfg GDT [facility] Location LV [facility] Location RA [facility] Location RV [facility] Lower Rate (bpm) 80 {beats}/min [place] LV PACING % 0 % [facility] Max Sensor Rate (bpm) 90 {beats}/min [facility] MDT_PROG_TACHY_ZONE_DE TECTIONS_STATUS ENABLED [facility] Model [id number] Viva XT BLANKET CUTTING MACHINE OPERATOR-D [facility] Model 4196 Attain Ability MRI SureScan [facility] Model 5076 CapSureFix Novus [facility] Model 0144 [employer] Rx [facility] Pacing Mode DDDR [facility] Serial Number [id number] [facility] Serial Number [id number] [facility] Serial Number [id number] [facility] Serial Number [id number] [facility] Test Charge Energy 18 J [facility] Test Charge Time 5.525 [facility] Therapy Status (Vent) Enabled [facility] Thresh RA Capture Amplitude (volts) 0.625 V [facility] Thresh RA Capture Duration (ms) 0.4 ms [facility] Thresh RA Sensing Amplitude (mvolts) 1.625 mV [facility] Thresh RV Capture Amplitude (VOLTS) 1 V [facility] Thresh RV Capture Duration (MS) 0.4 ms [facility] Thresh RV Sensing Amplitude (MVOLTS) 11.625 mV [facility] Tracking Rate (bpm) 90 {beats}/min [facility] VF Zone Detection Interval 450 ms [facility] VF Zone Therapy Configuration 2 ATP(s) + 0 Shock(s) [facility] No Panel Informationon 07-28 BLANK _ [facility] ICD-ATRIALTACHYCARDIA 0 [facility] ICD-Fast Ventricular Tachycardia 0 [facility] Implant Date 09/23/2016 [facility] ED Note-Physicianon 07-05-20 23 ED Note-Physician [id number] [facility] ED Note-Physician [id number]#[id number] [facility] ED Note-Physician [id number]#[id number] [facility] Physician Referralon 023 Physician Referral [id number]:12 7 [facility] ICD REMOTE CHECKon 3 AV Delay Adaptive Paced Minimum (ms) 350 ms [facility] AV Delay Adaptive Rate Maximum (bpm) 90 {beats}/min [facility] AV Delay Adaptive Rate Minimum (bpm) 75 {beats}/min [facility] AV Delay Adaptive Sensed Minimum (ms) 250 ms [facility] AV Delay Adaptive Status ENABLED [facility] AV Delay Paced (ms) [address] [facility] AV Delay Sensed (ms) 70 ms [place] Battery Voltage 2.77 V [facility] Scott RA Pacing Amplitude (volts) 2 V [facility] Scott RA Pacing Polarity BI [facility] Scott RA Pacing Pulse Width (ms) 0.4 ms [facility] Scott RA Sensing Amplitude (mvolts) 0.3 mV [facility] Scott RA Sensing Blanking Period (ms) 150 ms [facility] Scott RA Sensing Polarity BI [facility] Scott RA Sensing Refractory Period (ms) 250 ms [facility] Scott RV Pacing Amplitude (volts) 2.5 V [facility] Scott RV Pacing Polarity BI [facility] Scott RV Pacing Pulse Width (ms) 0.4 ms [facility] Scott RV Sensing Amplitude (mvolts) 0.3 mV [facility] Scott RV Sensing Blanking Period (ms) 200 ms [facility] Scott RV Sensing Polarity BI [facility] Detection Configuration (Vent) 2 - Zone [facility] FastVT_Detection Interval 450 ms [facility] FastVT_Therapy Configuration 2 ATP(s) + 0 Shock(s) [facility] ICD AFIB DetectionStatus DISABLED [facility] ICD ATAF DetectionInterval ms 450 ms [facility] ICD ATAF DetectionStatus ENABLED [facility] ICD ATAF TherapyConfiguration 2 ATP(s) + 0 Shock(s) [facility] ICD FastVT DetectionStatus ENABLED [facility] ICD-ADLRATE_BPM 85 {beats}/min [facility] ICD-AMS EPISODES 133 {beats}/min [facility] ICD-ATP Episodes (Vent) 0 [facility] ICD-ATRIALFIBRILLATION 10 Cl [facility] ICD-ATRIALTACHYCARDIA 10 [facility] ICD-Counters Cleared Date 09/23/2016 [facility] ICD-Device Sri GROSS [facility] ICD-LEADIMPEDANCEATRIA L 361 ohm [facility] ICD-Percent Pacing (Atrial) 50.68 % [facility] ICD-Percent Pacing (Vent) 87.63 % [facility] ICD-PMT Intervention ENABLED [place] ICD-PVC Intervention ENABLED [place] ICD-Rate Modulation Acceleration Reaction 30 s [facility] ICD-Rate Modulation Deceleration Exercise [facility] ICD-Rate Modulation Linn 3 [facility] ICD-Rate Modulation Threshold MediumHigh [facility] ICD-Shocks Aborted (Vent) 0 [facility] [id number] 0 [place] ICD-SHOCKSABORTED 0 [facility] ICD-SHOCKSDELIVEREDVEN TRICULAR 0 [facility] ICD-Ventricular Fibrillation 0 [facility] Implant Date 07/03/2005 [facility] Implant Date 11/30/2002 [facility] Lead Impedance (LV) [address] [facility] Lead Impedance (RV) [address] [facility] Lead Impedance High Voltage 61 ohm [facility] Lead1 Sri GROSS [facility] Lead2 Mfg MDT [facility] Lead3 Mfg GDT [facility] Location LV [facility] Location RA [facility] Location RV [facility] Lower Rate (bpm) 80 {beats}/min [place] LV PACING % 0 % [facility] Max Sensor Rate (bpm) 90 {beats}/min [facility] MDT_PROG_TACHY_ZONE_DE TECTIONS_STATUS ENABLED [facility] Model [id number] Viva XT BLANKET CUTTING MACHINE OPERATOR-D [facility] Model 4196 Attain Ability MRI SureScan [facility] Model 5076 CapSureFix Novus [facility] Model 0144 [employer] Endurance Rx [facility] Pacing Mode DDDR [facility] Serial Number [id number] [facility] Serial Number [id number] [facility] Serial Number [id number] [facility] Serial Number [id number] [facility] Test Charge Energy 18 [facility] Test Charge Time 5.145 [facility] Therapy Status (Vent) Enabled [facility] Thresh RA Capture Amplitude (volts) 0.625 V [facility] Thresh RA Capture Duration (ms) 0.4 ms [facility] Thresh RA Sensing Amplitude (mvolts) 2.875 mV [facility] Thresh RV Capture Amplitude (VOLTS) 1 V [facility] Thresh RV Capture Duration (MS) 0.4 ms [facility] Thresh RV Sensing Amplitude (MVOLTS) 6.875 mV [facility] Tracking Rate (bpm) 90 {beats}/min [facility] VF Zone Detection Interval 450 ms [facility] VF Zone Therapy Configuration 2 ATP(s) + 0 Shock(s) [facility] No Panel Informationon 05-06 BLANK _ [facility] ICD-ATRIALTACHYCARDIA 0 [facility] ICD-Fast Ventricular Tachycardia 0 [facility] Implant Date 09/23/2016 [facility] ICD REMOTE CHECKon 3 AV Delay Adaptive Paced Minimum (ms) 350 ms [facility] AV Delay Adaptive Rate Maximum (bpm) 90 {beats}/min [facility] AV Delay Adaptive Rate Minimum (bpm) 75 {beats}/min [facility] AV Delay Adaptive Sensed Minimum (ms) 250 ms [facility] AV Delay Adaptive Status ENABLED [facility] AV Delay Paced (ms) [address] [facility] AV Delay Sensed (ms) 70 ms [place] Battery Voltage 2.77 V [facility] Scott RA Pacing Amplitude (volts) 2 V [facility] Scott RA Pacing Polarity BI [facility] Scott RA Pacing Pulse Width (ms) 0.4 ms [facility] Scott RA Sensing Amplitude (mvolts) 0.3 mV [facility] Scott RA Sensing Blanking Period (ms) 150 ms [facility] Scott RA Sensing Polarity BI [facility] Scott RA Sensing Refractory Period (ms) 250 ms [facility] Scott RV Pacing Amplitude (volts) 2.75 V [facility] Scott RV Pacing Polarity BI [facility] Scott RV Pacing Pulse Width (ms) 0.4 ms [facility] Scott RV Sensing Amplitude (mvolts) 0.3 mV [facility] Scott RV Sensing Blanking Period (ms) 200 ms [facility] Scott RV Sensing Polarity BI [facility] Detection Configuration (Vent) 2 - Zone [facility] FastVT_Detection Interval 450 ms [facility] FastVT_Therapy Configuration 2 ATP(s) + 0 Shock(s) [facility] ICD AFIB DetectionStatus DISABLED [facility] ICD ATAF DetectionInterval ms 450 ms [facility] ICD ATAF DetectionStatus ENABLED [facility] ICD ATAF TherapyConfiguration 2 ATP(s) + 0 Shock(s) [facility] ICD FastVT DetectionStatus ENABLED [facility] ICD-ADLRATE_BPM 85 {beats}/min [facility] ICD-AMS EPISODES 133 {beats}/min [facility] ICD-ATP Episodes (Vent) 0 [facility] ICD-ATRIALFIBRILLATION 4 Cl [facility] ICD-ATRIALTACHYCARDIA 4 [facility] ICD-Counters Cleared Date 09/23/2016 [facility] ICD-Device Mfg MDT [facility] ICD-LEADIMPEDANCEATRIA L 342 ohm [facility] ICD-Percent Pacing (Atrial) 46.68 % [facility] ICD-Percent Pacing (Vent) 90.31 % [facility] ICD-PMT Intervention ENABLED [place] ICD-PVC Intervention ENABLED [place] ICD-Rate Modulation Acceleration Reaction 30 s [facility] ICD-Rate Modulation Deceleration Exercise [facility] ICD-Rate Modulation Linn 3 [facility] ICD-Rate Modulation Threshold MediumHigh [facility] ICD-Shocks Aborted (Vent) 0 [facility] [id number] 0 [place] ICD-SHOCKSABORTED 0 [facility] ICD-SHOCKSDELIVEREDVEN TRICULAR 0 [facility] ICD-Ventricular Fibrillation 0 [facility] Implant Date 07/03/2005 [facility] Implant Date 11/30/2002 [facility] Lead Impedance (LV) [address] [facility] Lead Impedance (RV) [address] [facility] Lead Impedance High Voltage 64 ohm [facility] Lead1 Mfg MDT [facility] Lead2 Mfg MDT [facility] Lead3 Mfg GDT [facility] Location LV [facility] Location RA [facility] Location RV [facility] Lower Rate (bpm) 80 {beats}/min [place] LV PACING % 0 % [facility] Max Sensor Rate (bpm) 90 {beats}/min [facility] MDT_PROG_TACHY_ZONE_DE TECTIONS_STATUS ENABLED [facility] Model [id number] Viva XT BLANKET CUTTING MACHINE OPERATOR-D [facility] Model 4196 Attain Ability MRI SureScan [facility] Model 5076 CapSureFix Novus [facility] Model 0144 [employer] End[employer] Rx [facility] Pacing Mode DDDR [facility] Serial Number [id number] [facility] Serial Number [id number] [facility] Serial Number [id number] [facility] Serial Number [id number] [facility] Test Charge Energy 18 J [facility] Test Charge Time 5.145 [facility] Therapy Status (Vent) Enabled [facility] Thresh RA Capture Amplitude (volts) 0.625 V [facility] Thresh RA Capture Duration (ms) 0.4 ms [facility] Thresh RA Sensing Amplitude (mvolts) 2.5 mV [facility] Thresh RV Capture Amplitude (VOLTS) 1.375 V [facility] Thresh RV Capture Duration (MS) 0.4 ms [facility] Thresh RV Sensing Amplitude (MVOLTS) 7.5 mV [facility] Tracking Rate (bpm) 90 {beats}/min [facility] VF Zone Detection Interval 450 ms [facility] VF Zone Therapy Configuration 2 ATP(s) + 0 Shock(s) [facility] No Panel Informationon 04-22 BLANK _ [facility] ICD-ATRIALTACHYCARDIA 0 [facility] ICD-Fast Ventricular Tachycardia 0 [facility] Implant Date 09/23/2016 [facility] ICD REMOTE CHECKon AV Delay Adaptive Paced Minimum (ms) 350 ms [facility] AV Delay Adaptive Rate Maximum (bpm) 90 {beats}/min [facility] AV Delay Adaptive Rate Minimum (bpm) 75 {beats}/min [facility] AV Delay Adaptive Sensed Minimum (ms) 250 ms [facility] AV Delay Adaptive Status ENABLED [facility] AV Delay Paced (ms) [address] [facility] AV Delay Sensed (ms) 70 ms [place] Battery Voltage 2.78 V [facility] Scott RA Pacing Amplitude (volts) 2 V [facility] Scott RA Pacing Polarity BI [facility] Scott RA Pacing Pulse Width (ms) 0.4 ms [facility] Scott RA Sensing Amplitude (mvolts) 0.3 mV [facility] Scott RA Sensing Blanking Period (ms) 150 ms [facility] Scott RA Sensing Polarity BI [facility] Scott RA Sensing Refractory Period (ms) 250 ms [facility] Scott RV Pacing Amplitude (volts) 3 V [facility] Scott RV Pacing Polarity BI [facility] Scott RV Pacing Pulse Width (ms) 0.4 ms [facility] Scott RV Sensing Amplitude (mvolts) 0.3 mV [facility] Scott RV Sensing Blanking Period (ms) 200 ms [facility] Scott RV Sensing Polarity BI [facility] Detection Configuration (Vent) 2 - Zone [facility] FastVT_Detection Interval 450 ms [facility] FastVT_Therapy Configuration 2 ATP(s) + 0 Shock(s) [facility] ICD AFIB DetectionStatus DISABLED [facility] ICD ATAF DetectionInterval ms 450 ms [facility] ICD ATAF DetectionStatus ENABLED [facility] ICD ATAF TherapyConfiguration 2 ATP(s) + 0 Shock(s) [facility] ICD FastVT DetectionStatus ENABLED [facility] ICD-ADLRATE_BPM 85 {beats}/min [facility] ICD-AMS EPISODES 133 {beats}/min [facility] ICD-ATP Episodes (Vent) 0 [facility] ICD-ATRIALFIBRILLATION 0 Cl [facility] ICD-Counters Cleared Date 09/23/2016 [facility] ICD-Device Mfg MDT [facility] ICD-LEADIMPEDANCEATRIA L 342 ohm [facility] ICD-Percent Pacing (Atrial) 44.86 % [facility] ICD-Percent Pacing (Vent) 83.22 % [facility] ICD-PMT Intervention ENABLED [place] ICD-PVC Intervention ENABLED [place] ICD-Rate Modulation Acceleration Reaction 30 s [facility] ICD-Rate Modulation Deceleration Exercise [facility] ICD-Rate Modulation Linn 3 [facility] ICD-Rate Modulation Threshold MediumHigh [facility] ICD-Shocks Aborted (Vent) 0 [facility] [id number] 0 [place] ICD-SHOCKSABORTED 0 [facility] ICD-SHOCKSDELIVEREDVEN TRICULAR 0 [facility] ICD-Ventricular Fibrillation 0 [facility] Implant Date 07/03/2005 [facility] Implant Date 11/30/2002 [facility] Lead Impedance (LV) [address] [facility] Lead Impedance (RV) [address] [facility] Lead Impedance High Voltage 61 ohm [facility] Lead1 Mfg MDT [facility] Lead2 Mfg MDT [facility] Lead3 Mfg GDT [facility] Location LV [facility] Location RA [facility] Location RV [facility] Lower Rate (bpm) 80 {beats}/min [place] LV PACING % 0 % [facility] Max Sensor Rate (bpm) 90 {beats}/min [facility] MDT_PROG_TACHY_ZONE_DE TECTIONS_STATUS ENABLED [facility] Model [id number] Viva XT BLANKET CUTTING MACHINE OPERATOR-D [facility] Model 4196 Attain Ability MRI SureScan [facility] Model 5076 CapSureFix Novus [facility] Model 0144 [employer] Endurance Rx [facility] Pacing Mode DDDR [facility] Serial Number [id number] [facility] Serial Number [id number] [facility] Serial Number [id number] [facility] Serial Number [id number] [facility] Test Charge Energy 18 J [facility] Test Charge Time 5.145 [facility] Therapy Status (Vent) Enabled [facility] Thresh RA Capture Amplitude (volts) 0.625 V [facility] Thresh RA Capture Duration (ms) 0.4 ms [facility] Thresh RA Sensing Amplitude (mvolts) 2 mV [facility] Thresh RV Capture Amplitude (VOLTS) 1.125 V [facility] Thresh RV Capture Duration (MS) 0.4 ms [facility] Thresh RV Sensing Amplitude (MVOLTS) 9.25 mV [facility] Tracking Rate (bpm) 90 {beats}/min [facility] VF Zone Detection Interval 450 ms [facility] VF Zone Therapy Configuration 2 ATP(s) + 0 Shock(s) [facility] AV Delay Adaptive Paced Minimum (ms) 350 ms [facility] AV Delay Adaptive Rate Maximum (bpm) 90 {beats}/min [facility] AV Delay Adaptive Rate Minimum (bpm) 75 {beats}/min [facility] AV Delay Adaptive Sensed Minimum (ms) 250 ms [facility] AV Delay Adaptive Status ENABLED [facility] AV Delay Paced (ms) [address] [facility] AV Delay Sensed (ms) 70 ms [place] Battery Voltage 2.78 V [facility] Scott RA Pacing Amplitude (volts) 2 V [facility] Scott RA Pacing Polarity BI [facility] Scott RA Pacing Pulse Width (ms) 0.4 ms [facility] Scott RA Sensing Amplitude (mvolts) 0.3 mV [facility] Scott RA Sensing Blanking Period (ms) 150 ms [facility] Scott RA Sensing Polarity BI [facility] Scott RA Sensing Refractory Period (ms) 250 ms [facility] Scott RV Pacing Amplitude (volts) 3 V [facility] Scott RV Pacing Polarity BI [facility] Scott RV Pacing Pulse Width (ms) 0.4 ms [facility] Scott RV Sensing Amplitude (mvolts) 0.3 mV [facility] Scott RV Sensing Blanking Period (ms) 200 ms [facility] Scott RV Sensing Polarity BI [facility] Detection Configuration (Vent) 2 - Zone [facility] FastVT_Detection Interval 450 ms [facility] FastVT_Therapy Configuration 2 ATP(s) + 0 Shock(s) [facility] ICD AFIB DetectionStatus DISABLED [facility] ICD ATAF DetectionInterval ms 450 ms [facility] ICD ATAF DetectionStatus ENABLED [facility] ICD ATAF TherapyConfiguration 2 ATP(s) + 0 Shock(s) [facility] ICD FastVT DetectionStatus ENABLED [facility] ICD-ADLRATE_BPM 85 {beats}/min [facility] ICD-AMS EPISODES 133 {beats}/min [facility] ICD-ATP Episodes (Vent) 0 [facility] ICD-ATRIALFIBRILLATION 0 Cl [facility] ICD-Counters Cleared Date 09/23/2016 [facility] ICD-Device Mfg MDT [facility] ICD-LEADIMPEDANCEATRIA L 342 ohm [facility] ICD-Percent Pacing (Atrial) 80.04 % [facility] ICD-Percent Pacing (Vent) 89.35 % [facility] ICD-PMT Intervention ENABLED [place] ICD-PVC Intervention ENABLED [place] ICD-Rate Modulation Acceleration Reaction 30 s [facility] ICD-Rate Modulation Deceleration Exercise [facility] ICD-Rate Modulation Linn 3 [facility] [facility] ICD-Rate Modulation Threshold MediumHigh [facility] ICD-Shocks Aborted (Vent) 0 [facility] [id number] 0 [place] ICD-SHOCKSABORTED 0 [facility] ICD-SHOCKSDELIVEREDVEN TRICULAR 0 [facility] ICD-Ventricular Fibrillation 0 [facility] Implant Date 07/03/2005 [facility] Implant Date 11/30/2002 [facility] Lead Impedance (LV) [address] [facility] Lead Impedance (RV) [address] [facility] Lead Impedance High Voltage 63 ohm [facility] Lead1 Mfg MDT [facility] Lead2 Mfg MDT [facility] Lead3 Mfg GDT [facility] Location LV [facility] Location RA [facility] Location RV [facility] Lower Rate (bpm) 80 {beats}/min [place] LV PACING % 0 % [facility] Max Sensor Rate (bpm) 90 {beats}/min [facility] MDT_PROG_TACHY_ZONE_DE TECTIONS_STATUS ENABLED [facility] Model [id number] Viva XT BLANKET CUTTING MACHINE OPERATOR-D [facility] Model 4196 Attain Ability [facility] Model 5076 CapSureFix Novus [facility] Model 0144 [employer] Rx [facility] Pacing Mode DDDR [facility] Serial Number [id number] [facility] Serial Number [id number] [facility] Serial Number [id number] [facility] Serial Number [id number] [facility] Test Charge Energy [facility] Test Charge Time 5.145 [facility] Therapy Status (Vent) Enabled [facility] Thresh RA Capture Amplitude (volts) 0.625 V [facility] Thresh RA Capture Duration (ms) 0.4 ms [facility] Thresh RA Sensing Amplitude (mvolts) 2.375 mV [facility] Thresh RV Capture Amplitude (VOLTS) 1.125 V [facility] Thresh RV Capture Duration (MS) 0.4 ms [facility] Thresh RV Sensing Amplitude (MVOLTS) 8.75 mV [facility] Tracking Rate (bpm) 90 {beats}/min [facility] VF Zone Detection Interval 450 ms [facility] VF Zone Therapy Configuration 2 ATP(s) + 0 Shock(s) [facility] No Panel Informationon 04-09 BLANK _ [facility] ICD-ATRIALTACHYCARDIA 0 [facility] ICD-Fast Ventricular Tachycardia 0 [facility] Implant Date 09/23/2016 [facility] BLANK _ [facility] ICD-ATRIALTACHYCARDIA 0 [facility] ICD-Fast Ventricular Tachycardia 0 [facility] Implant Date 09/23/2016 [facility] ICD REMOTE CHECKon 3 AV Delay Adaptive Paced Minimum (ms) 350 ms [facility] AV Delay Adaptive Rate Maximum (bpm) 90 {beats}/min [facility] AV Delay Adaptive Rate Minimum (bpm) 75 {beats}/min [facility] AV Delay Adaptive Sensed Minimum (ms) 250 ms [facility] AV Delay Adaptive Status ENABLED [facility] AV Delay Paced (ms) [address] [facility] AV Delay Sensed (ms) 70 ms [place] Battery Voltage 2.79 V [facility] Scott RA Pacing Amplitude (volts) 2 V [facility] Scott RA Pacing Polarity BI [facility] Scott RA Pacing Pulse Width (ms) 0.4 ms [facility] Scott RA Sensing Amplitude (mvolts) 0.3 mV [facility] Scott RA Sensing Blanking Period (ms) 150 ms [facility] Scott RA Sensing Polarity BI [facility] Scott RA Sensing Refractory Period (ms) 250 ms [facility] Scott RV Pacing Amplitude (volts) 3 V [facility] Scott RV Pacing Polarity BI [facility] Scott RV Pacing Pulse Width (ms) 0.4 ms [facility] Scott RV Sensing Amplitude (mvolts) 0.3 mV [facility] Scott RV Sensing Blanking Period (ms) 200 ms [facility] Scott RV Sensing Polarity BI [facility] Detection Configuration (Vent) 2 - Zone [facility] FastVT_Detection Interval 450 ms [facility] FastVT_Therapy Configuration 2 ATP(s) + 0 Shock(s) [facility] ICD AFIB DetectionStatus DISABLED [facility] ICD ATAF DetectionInterval ms 450 ms [facility] ICD ATAF DetectionStatus ENABLED [facility] ICD ATAF TherapyConfiguration 2 ATP(s) + 0 Shock(s) [facility] ICD FastVT DetectionStatus ENABLED [facility] ICD-ADLRATE_BPM 85 {beats}/min [facility] ICD-AMS EPISODES 133 {beats}/min [facility] ICD-ATP Episodes (Vent) 0 [facility] ICD-ATRIALFIBRILLATION 0 Cl [facility] ICD-Counters Cleared Date 09/23/2016 [facility] ICD-Device Mfg MDT [facility] ICD-LEADIMPEDANCEATRIA L 342 ohm [facility] ICD-Percent Pacing (Atrial) 81.31 % [facility] ICD-Percent Pacing (Vent) 99.41 % [facility] ICD-PMT Intervention ENABLED [place] ICD-PVC Intervention ENABLED [place] ICD-Rate Modulation Acceleration Reaction 30 s [facility] ICD-Rate Modulation Deceleration Exercise [facility] ICD-Rate Modulation Linn 3 [facility] ICD-Rate Modulation Threshold MediumHigh [facility] ICD-Shocks Aborted (Vent) 0 [facility] [id number] 0 [place] ICD-SHOCKSABORTED 0 [facility] ICD-SHOCKSDELIVEREDVEN TRICULAR 0 [facility] ICD-Ventricular Fibrillation 0 [facility] Implant Date 07/03/2005 [facility] Implant Date 11/30/2002 [facility] Lead Impedance (LV) [address] [facility] Lead Impedance (RV) [address] [facility] Lead Impedance High Voltage 61 ohm [facility] Lead1 Mfg MDT [facility] Lead2 Mfg MDT [facility] Lead3 Mfg GDT [facility] Location LV [facility] Location RA [facility] Location RV [facility] Lower Rate (bpm) 80 {beats}/min [place] LV PACING % 0 % [facility] Max Sensor Rate (bpm) 90 {beats}/min [facility] MDT_PROG_TACHY_ZONE_DE TECTIONS_STATUS ENABLED [facility] Model [id number] Viva XT BLANKET CUTTING MACHINE OPERATOR-D [facility] Model 4196 Attain Ability MRI SureScan [facility] Model 5076 CapSureFix Novus [facility] Model 0144 [employer] Rx [facility] Pacing Mode DDDR [facility] Serial Number [id number] [facility] Serial Number [id number] [facility] Serial Number [id number] [facility] Serial Number [id number] [facility] Test Charge Energy [facility] Test Charge Time 5.145 [facility] Therapy Status (Vent) Enabled [facility] Thresh RA Capture Amplitude (volts) 0.625 V [facility] Thresh RA Capture Duration (ms) 0.4 ms [facility] Thresh RA Sensing Amplitude (mvolts) 3 mV [facility] Thresh RV Capture Amplitude (VOLTS) 1.25 V [facility] Thresh RV Capture Duration (MS) 0.4 ms [facility] Thresh RV Sensing Amplitude (MVOLTS) 8.75 mV [facility] Tracking Rate (bpm) 90 {beats}/min [facility] VF Zone Detection Interval 450 ms [facility] VF Zone Therapy Configuration 2 ATP(s) + 0 Shock(s) [facility] AV Delay Adaptive Paced Minimum (ms) 350 ms [facility] AV Delay Adaptive Rate Maximum (bpm) 90 {beats}/min [facility] AV Delay Adaptive Rate Minimum (bpm) 75 {beats}/min [facility] AV Delay Adaptive Sensed Minimum (ms) 250 ms [facility] AV Delay Adaptive Status ENABLED [facility] AV Delay Paced (ms) [address] [facility] AV Delay Sensed (ms) 70 ms [place] Battery Voltage 2.79 V [facility] Scott RA Pacing Amplitude (volts) 2 V [facility] Scott RA Pacing Polarity BI [facility] Scott RA Pacing Pulse Width (ms) 0.4 ms [facility] Scott RA Sensing Amplitude (mvolts) 0.3 mV [facility] Scott RA Sensing Blanking Period (ms) 150 ms [facility] Scott RA Sensing Polarity BI [facility] Scott RA Sensing Refractory Period (ms) 250 ms [facility] Scott RV Pacing Amplitude (volts) 2.75 V [facility] Scott RV Pacing Polarity BI [facility] Scott RV Pacing Pulse Width (ms) 0.4 ms [facility] Scott RV Sensing Amplitude (mvolts) 0.3 mV [facility] Scott RV Sensing Blanking Period (ms) 200 ms [facility] Scott RV Sensing Polarity BI [facility] Detection Configuration (Vent) 2 - Zone [facility] FastVT_Detection Interval 450 ms [facility] FastVT_Therapy Configuration 2 ATP(s) + 0 Shock(s) [facility] ICD AFIB DetectionStatus DISABLED [facility] ICD ATAF DetectionInterval ms 450 ms [facility] ICD ATAF DetectionStatus ENABLED [facility] ICD ATAF TherapyConfiguration 2 ATP(s) + 0 Shock(s) [facility] ICD FastVT DetectionStatus ENABLED [facility] ICD-ADLRATE_BPM 85 {beats}/min [facility] ICD-AMS EPISODES 133 {beats}/min [facility] ICD-ATP Episodes (Vent) 0 [facility] ICD-ATRIALFIBRILLATION 0 Cl [facility] ICD-Counters Cleared Date 09/23/2016 [facility] ICD-Device Mfg MDT [facility] ICD-LEADIMPEDANCEATRIA L 342 ohm [facility] ICD-Percent Pacing (Atrial) 99.2 % [facility] ICD-Percent Pacing (Vent) 99.87 % [facility] ICD-PMT Intervention ENABLED [place] ICD-PVC Intervention ENABLED [place] ICD-Rate Modulation Acceleration Reaction 30 s [facility] ICD-Rate Modulation Deceleration Exercise [facility] ICD-Rate Modulation Linn 3 [facility] ICD-Rate Modulation Threshold MediumHigh [facility] ICD-Shocks Aborted (Vent) 0 [facility] [id number] 0 [place] ICD-SHOCKSABORTED 0 [facility] ICD-SHOCKSDELIVEREDVEN TRICULAR 0 [facility] ICD-Ventricular Fibrillation 0 [facility] Implant Date 07/03/2005 [facility] Implant Date 11/30/2002 [facility] Lead Impedance (LV) [address] [facility] Lead Impedance (RV) [address] [facility] Lead Impedance High Voltage 62 ohm [facility] Lead1 Mfg MDT [facility] Lead2 Mfg MDT [facility] Lead3 Mfg GDT [facility] Location LV [facility] Location RA [facility] Location RV [facility] Lower Rate (bpm) 80 {beats}/min [place] LV PACING % 0 % [facility] Max Sensor Rate (bpm) 90 {beats}/min [facility] MDT_PROG_TACHY_ZONE_DE TECTIONS_STATUS ENABLED [facility] Model [id number] Viva XT BLANKET CUTTING MACHINE OPERATOR-D [facility] Model 4196 Attain Ability MRI SureScan [facility] Model 5076 CapSureFix Novus [facility] Model 0144 [employer] Rx [facility] Pacing Mode DDDR [facility] Serial Number [id number] [facility] Serial Number [id number] [facility] Serial Number [id number] [facility] Serial Number [id number] [facility] Test Charge Energy [facility] Test Charge Time 5.145 [facility] Therapy Status (Vent) Enabled [facility] Thresh RA Capture Amplitude (volts) 0.625 V [facility] Thresh RA Capture Duration (ms) 0.4 ms [facility] Thresh RA Sensing Amplitude (mvolts) 2.25 mV [facility] Thresh RV Capture Amplitude (VOLTS) 1.375 V [facility] Thresh RV Capture Duration (MS) 0.4 ms [facility] Thresh RV Sensing Amplitude (MVOLTS) 8.125 mV [facility] Tracking Rate (bpm) 90 {beats}/min [facility] VF Zone Detection Interval 450 ms [facility] VF Zone Therapy Configuration 2 ATP(s) + 0 Shock(s) [facility] No Panel Informationon 03-29 BLANK _ [facility] ICD-ATRIALTACHYCARDIA 0 [facility] ICD-Fast Ventricular Tachycardia 0 [facility] Implant Date 09/23/2016 [facility] BLANK _ [facility] ICD-ATRIALTACHYCARDIA 0 [facility] ICD-Fast Ventricular Tachycardia 0 [facility] Implant Date 09/23/2016 [facility] ICD REMOTE CHECKon 3 AV Delay Adaptive Paced Minimum (ms) 350 ms [facility] AV Delay Adaptive Rate Maximum (bpm) 90 {beats}/min [facility] AV Delay Adaptive Rate Minimum (bpm) 75 {beats}/min [facility] AV Delay Adaptive Sensed Minimum (ms) 250 ms [facility] AV Delay Adaptive Status ENABLED [facility] AV Delay Paced (ms) [address] [facility] AV Delay Sensed (ms) 70 ms [place] Battery Voltage 2.79 V [facility] Scott RA Pacing Amplitude (volts) 2 V [facility] Scott RA Pacing Polarity BI [facility] Scott RA Pacing Pulse Width (ms) 0.4 ms [facility] Scott RA Sensing Amplitude (mvolts) 0.3 mV [facility] Scott RA Sensing Blanking Period (ms) 150 ms [facility] Scott RA Sensing Polarity BI [facility] Scott RA Sensing Refractory Period (ms) 250 ms [facility] Scott RV Pacing Amplitude (volts) 2.75 V [facility] Scott RV Pacing Polarity BI [facility] Scott RV Pacing Pulse Width (ms) 0.4 ms [facility] Scott RV Sensing Amplitude (mvolts) 0.3 mV [facility] Scott RV Sensing Blanking Period (ms) 200 ms [facility] Scott RV Sensing Polarity BI [facility] Detection Configuration (Vent) 2 - Zone [facility] FastVT_Detection Interval 450 ms [facility] FastVT_Therapy Configuration 2 ATP(s) + 0 Shock(s) [facility] ICD AFIB DetectionStatus DISABLED [facility] ICD ATAF DetectionInterval ms 450 ms [facility] ICD ATAF DetectionStatus ENABLED [facility] ICD ATAF TherapyConfiguration 2 ATP(s) + 0 Shock(s) [facility] ICD FastVT DetectionStatus ENABLED [facility] ICD-ADLRATE_BPM 85 {beats}/min [facility] ICD-AMS EPISODES 133 {beats}/min [facility] ICD-ATP Episodes (Vent) 0 [facility] ICD-ATRIALFIBRILLATION 0 Cl [facility] ICD-Counters Cleared Date 09/23/2016 [facility] ICD-Device Emilyg T [facility] ICD-LEADIMPEDANCEATRIA L 342 ohm [facility] ICD-Percent Pacing (Atrial) 99.95 % [facility] ICD-Percent Pacing (Vent) 99.97 % [facility] ICD-PMT Intervention ENABLED [place] ICD-PVC Intervention ENABLED [place] ICD-Rate Modulation Acceleration Reaction 30 s [facility] ICD-Rate Modulation Deceleration Exercise [facility] ICD-Rate Modulation Linn 3 [facility] ICD-Rate Modulation Threshold MediumHigh [facility] ICD-Shocks Aborted (Vent) 0 [facility] [id number] 0 [place] ICD-SHOCKSABORTED 0 [facility] ICD-SHOCKSDELIVEREDVEN TRICULAR 0 [facility] ICD-Ventricular Fibrillation 0 [facility] Implant Date 07/03/2005 [facility] Implant Date 11/30/2002 [facility] Lead Impedance (LV) [address] [facility] Lead Impedance (RV) [address] [facility] Lead Impedance High Voltage 59 ohm [facility] Lead1 Emilyg MDT [facility] Lead2 Emilyg MDT [facility] Lead3 Mfg GDT [facility] Location LV [facility] Location RA [facility] Location RV [facility] Lower Rate (bpm) 80 {beats}/min [place] LV PACING % 0 % [facility] Max Sensor Rate (bpm) 90 {beats}/min [facility] MDT_PROG_TACHY_ZONE_DE TECTIONS_STATUS ENABLED [facility] Model [id number] Viva XT BLANKET CUTTING MACHINE OPERATOR-D [facility] Model 4196 Attain Ability MRI SureScan [facility] Model 5076 CapSureFix Novus [facility] Model 0144 [employer] Rx [facility] Pacing Mode DDDR [facility] Serial Number [id number] [facility] Serial Number [id number] [facility] Serial Number [id number] [facility] Serial Number [id number] [facility] Test Charge Energy 18 [facility] Test Charge Time 5.145 [facility] Therapy Status (Vent) Enabled [facility] Thresh RA Capture Amplitude (volts) 0.625 V [facility] Thresh RA Capture Duration (ms) 0.4 ms [facility] Thresh RA Sensing Amplitude (mvolts) 2.875 mV [facility] Thresh RV Capture Amplitude (VOLTS) 1.375 V [facility] Thresh RV Capture Duration (MS) 0.4 ms [facility] Thresh RV Sensing Amplitude (MVOLTS) 11 mV [facility] Tracking Rate (bpm) 90 {beats}/min [facility] VF Zone Detection Interval 450 ms [facility] VF Zone Therapy Configuration 2 ATP(s) + 0 Shock(s) [facility] AV Delay Adaptive Paced Minimum (ms) 350 ms [facility] AV Delay Adaptive Rate Maximum (bpm) 90 {beats}/min [facility] AV Delay Adaptive Rate Minimum (bpm) 75 {beats}/min [facility] AV Delay Adaptive Sensed Minimum (ms) 250 ms [facility] AV Delay Adaptive Status ENABLED [facility] AV Delay Paced (ms) [address] [facility] AV Delay Sensed (ms) 70 ms [place] Battery Voltage 2.78 V [facility] Scott RA Pacing Amplitude (volts) 2 V [facility] Scott RA Pacing Polarity BI [facility] Scott RA Pacing Pulse Width (ms) 0.4 ms [facility] Scott RA Sensing Amplitude (mvolts) 0.3 mV [facility] Scott RA Sensing Blanking Period (ms) 150 ms [facility] Scott RA Sensing Polarity BI [facility] Scott RA Sensing Refractory Period (ms) 250 ms [facility] Scott RV Pacing Amplitude (volts) 2.75 V [facility] Scott RV Pacing Polarity BI [facility] Scott RV Pacing Pulse Width (ms) 0.4 ms [facility] Scott RV Sensing Amplitude (mvolts) 0.3 mV [facility] Scott RV Sensing Blanking Period (ms) 200 ms [facility] Scott RV Sensing Polarity BI [facility] Detection Configuration (Vent) 2 - Zone [facility] FastVT_Detection Interval 450 ms [facility] FastVT_Therapy Configuration 2 ATP(s) + 0 Shock(s) [facility] ICD AFIB DetectionStatus DISABLED [facility] ICD ATAF DetectionInterval ms 450 ms [facility] ICD ATAF DetectionStatus ENABLED [facility] ICD ATAF TherapyConfiguration 2 ATP(s) + 0 Shock(s) [facility] ICD FastVT DetectionStatus ENABLED [facility] ICD-ADLRATE_BPM 85 {beats}/min [facility] ICD-AMS EPISODES 133 {beats}/min [facility] ICD-ATP Episodes (Vent) 0 [facility] ICD-ATRIALFIBRILLATION 0 Cl [facility] ICD-Counters Cleared Date 09/23/2016 [facility] ICD-Device Mfg T [facility] ICD-LEADIMPEDANCEATRIA L 361 ohm [facility] ICD-Percent Pacing (Atrial) 98.5 % [facility] ICD-Percent Pacing (Vent) 99.69 % [facility] ICD-PMT Intervention ENABLED [place] ICD-PVC Intervention ENABLED [place] ICD-Rate Modulation Acceleration Reaction 30 s [facility] ICD-Rate Modulation Deceleration Exercise [facility] ICD-Rate Modulation [place] 3 [facility] ICD-Rate Modulation Threshold MediumHigh [facility] ICD-Shocks Aborted (Vent) 0 [facility] [id number] 0 [place] ICD-SHOCKSABORTED 0 [facility] ICD-SHOCKSDELIVEREDVEN TRICULAR 0 [facility] ICD-Ventricular Fibrillation 0 [facility] Implant Date 07/03/2005 [facility] Implant Date 11/30/2002 [facility] Lead Impedance (LV) [address] [facility] Lead Impedance (RV) [address] [facility] Lead Impedance High Voltage 62 ohm [facility] Lead1 Mfg MDT [facility] Lead2 Mfg MDT [facility] Lead3 Mfg GDT [facility] Location LV [facility] Location RA [facility] Location RV [facility] Lower Rate (bpm) 80 {beats}/min [place] LV PACING % 0 % [facility] Max Sensor Rate (bpm) 90 {beats}/min [facility] MDT_PROG_TACHY_ZONE_DE TECTIONS_STATUS ENABLED [facility] Model [id number] Viva XT BLANKET CUTTING MACHINE OPERATOR-D [facility] Model 4196 Attain Ability MRI SureScan [facility] Model 5076 CapSureFix Novus [facility] Model 0144 [employer]ot[employer] Endurance Rx [facility] Pacing Mode DDDR [facility] Serial Number [id number] [facility] Serial Number [id number] [facility] Serial Number [id number] [facility] Serial Number [id number] [facility] Test Charge Energy 18 J [facility] Test Charge Time 5.145 [facility] Therapy Status (Vent) Enabled [facility] Thresh RA Capture Amplitude (volts) 0.625 V [facility] Thresh RA Capture Duration (ms) 0.4 ms [facility] Thresh RA Sensing Amplitude (mvolts) 2.875 mV [facility] Thresh RV Capture Amplitude (VOLTS) 1.375 V [facility] Thresh RV Capture Duration (MS) 0.4 ms [facility] Thresh RV Sensing Amplitude (MVOLTS) 13.25 mV [facility] Tracking Rate (bpm) 90 {beats}/min C [facility] VF Zone Detection Interval 450 ms [facility] VF Zone Therapy Configuration 2 ATP(s) + 0 Shock(s) [facility] No Panel Informationon 03-05 [facility] _ [facility] ICD-ATRIALTACHYCARDIA 0 [facility] ICD-Fast Ventricular Tachycardia 0 [facility] Implant Date 09/23/2016 [facility] BLANK _ [facility] ICD-ATRIALTACHYCARDIA 0 [facility] ICD-Fast Ventricular Tachycardia 0 [facility] Implant Date 09/23/2016 [facility] XR CSPINE 2_3 VIEWSon 2022 XR [...] TENZIN ALEJO Date: 2023-01-27 10:58 Normal [facility] PROTIMEon 01-03-2023 INR Coag (PPP) [Relative time] 0.98 {INR} Normal [facility] Comment on above: Performed By: #### P T ####[facility] [id number] [place] [address]Dr. Melissa Helm INR GUIDELINES SEE BELOW Normal [facility] Comment on above: Result Comment: POOJA RED INR: 2.0 - 3.0 CONDITIONS NOT LISTED BELOW 2.5 - 3.5 FOR PROSTHETIC HEART VALVE REPLACEMENT 2.5 - 3.5 RECURRENT THROMBOSIS Performed By: #### P T ####[facility] [id number] [place] [address]Dr. Melissa Helm PT Coag (PPP) [Time] 10.4 s Normal 9.0-11.6 [facility] Comment on above: Performed By: #### P T ####[facility] [id number] [place] [address]Dr. Melissa Helm XR SHOULDER RT 2V or [...] FAUSTO GONCALVES Date: 2023-01-03 13:54 Normal [facility] ICD REMOTE CHECKon 3 AV Delay Adaptive Paced Minimum (ms) 350 ms [facility] AV Delay Adaptive Rate Maximum (bpm) 90 {beats}/min [facility] AV Delay Adaptive Rate Minimum (bpm) 75 {beats}/min [facility] AV Delay Adaptive Sensed Minimum (ms) 250 ms [facility] AV Delay Adaptive Status ENABLED [facility] AV Delay Paced (ms) [address] [facility] AV Delay Sensed (ms) 70 ms [place] Battery Voltage 2.81 V [facility] Scott RA Pacing Amplitude (volts) 2 V [facility] Scott RA Pacing Polarity BI [facility] Scott RA Pacing Pulse Width (ms) 0.4 ms [facility] Scott RA Sensing Amplitude (mvolts) 0.3 mV [facility] Scott RA Sensing Blanking Period (ms) 150 ms [facility] Scott RA Sensing Polarity BI [facility] Scott RA Sensing Refractory Period (ms) 250 ms [facility] Scott RV Pacing Amplitude (volts) 2.75 V [facility] Scott RV Pacing Polarity BI [facility] Scott RV Pacing Pulse Width (ms) 0.4 ms [facility] Scott RV Sensing Amplitude (mvolts) 0.3 mV [facility] Scott RV Sensing Blanking Period (ms) 200 ms [facility] Scott RV Sensing Polarity BI [facility] Detection Configuration (Vent) 2 - Zone [facility] FastVT_Detection Interval 450 ms [facility] FastVT_Therapy Configuration 2 ATP(s) + 0 Shock(s) [facility] ICD AFIB DetectionStatus DISABLED [facility] ICD ATAF DetectionInterval ms 450 ms [facility] ICD ATAF DetectionStatus ENABLED [facility] ICD ATAF TherapyConfiguration 2 ATP(s) + 0 Shock(s) [facility] ICD FastVT DetectionStatus ENABLED [facility] ICD-ADLRATE_BPM 85 {beats}/min [facility] ICD-AMS EPISODES 133 {beats}/min [facility] ICD-ATP Episodes (Vent) 0 [facility] ICD-ATRIALFIBRILLATION 0 Cl [facility] ICD-Counters Cleared Date 09/23/2016 [facility] ICD-Device Mfg MDT [facility] ICD-LEADIMPEDANCEATRIA L 342 ohm [facility] ICD-Percent Pacing (Atrial) 99.28 % [facility] ICD-Percent Pacing (Vent) 99.57 % [facility] ICD-PMT Intervention ENABLED [place] ICD-PVC Intervention ENABLED [place] ICD-Rate Modulation Acceleration Reaction 30 s [facility] ICD-Rate Modulation Deceleration Exercise [facility] ICD-Rate Modulation [place] 3 [facility] ICD-Rate Modulation Threshold MediumHigh [facility] ICD-Shocks Aborted (Vent) 0 [facility] [id number] 0 [place] ICD-SHOCKSABORTED 0 [facility] ICD-SHOCKSDELIVEREDVEN TRICULAR 0 [facility] ICD-Ventricular Fibrillation 0 [facility] Implant Date 07/03/2005 [facility] Implant Date 11/30/2002 [facility] Lead Impedance (LV) [address] [facility] Lead Impedance (RV) [address] [facility] Lead Impedance High Voltage 64 ohm [facility] Lead1 Mfg MDT [facility] Lead2 Mfg MDT [facility] Lead3 Mfg GDT [facility] Location LV [facility] Location RA [facility] Location RV [facility] Lower Rate (bpm) 80 {beats}/min [place] LV PACING % 0 % [facility] Max Sensor Rate (bpm) 90 {beats}/min [facility] MDT_PROG_TACHY_ZONE_DE TECTIONS_STATUS ENABLED [facility] Model [id number] Viva XT BLANKET CUTTING MACHINE OPERATOR-D [facility] Model 4196 Attain Ability MRI SureScan [facility] Model 5076 CapSureFix Novus [facility] Model 0144 [employer] Endurance Rx [facility] Pacing Mode DDDR [facility] Serial Number [id number] [facility] Serial Number [id number] [facility] Serial Number [id number] [facility] Serial Number [id number] [facility] Test Charge Energy 18 J [facility] Test Charge Time 4.834 [facility] Therapy Status (Vent) Enabled [facility] Thresh RA Capture Amplitude (volts) 0.625 V [facility] Thresh RA Capture Duration (ms) 0.4 ms [facility] Thresh RA Sensing Amplitude (mvolts) 2 mV [facility] Thresh RV Capture Amplitude (VOLTS) 1.375 V [facility] Thresh RV Capture Duration (MS) 0.4 ms [facility] Thresh RV Sensing Amplitude (MVOLTS) 7.5 mV [facility] Tracking Rate (bpm) 90 {beats}/min C [facility] VF Zone Detection Interval 450 ms [facility] VF Zone Therapy Configuration 2 ATP(s) + 0 Shock(s) [facility] No Panel Informationon 11-28 BLANK _ [facility] ICD-ATRIALTACHYCARDIA 0 [facility] ICD-Fast Ventricular Tachycardia 0 [facility] Implant Date 09/23/2016 [facility] NM BONE IMAGE 3 PHASEon 10-01 NM BONE IMAGE 3 PHASE EXAMINATION: NM [...] by: JC BRAVO Date: 2022-10-26 13:35 Normal [facility] TRANSFERRINon 10-07-2022 Transferrin [Mass/Vol] 354 mg/dL Normal 192-364 [facility] Comment on above: Performed By: #### T RANSFR #### [facility] [address] [place] [address] Dr. Melissa Helm CBC AUTO DIFFon 10-06-2022 BASO # 0.1 103/ul Normal 0.0-0.1 [facility] Comment on above: Performed By: #### C BC #### [facility] [address] [place] [address] Dr. Melissa Helm Basophils/100 WBC (Bld) 0.9 % Normal 0.2-2.0 [facility] Comment on above: Performed By: #### C BC #### [facility] [address] [place] [address] Dr. Melissa Helm EO # 0.4 103/ul Normal 0.0-0.7 [facility] Comment on above: Performed By: #### C BC #### [facility] [address] [place] [address] Dr. Melissa Helm Eosinophils/100 WBC (Bld) 2.7 % Normal 0.9-7.0 [facility] Comment on above: Performed By: #### C BC #### [facility] [address] [place] [address] Dr. Melissa Helm Erythrocyte distribution width (RBC) [Ratio] 20.8 % Critically high 11.0-15.0 [facility] Comment on above: Performed By: #### C BC #### [facility] [address] [place] [address] [address] Melissa Helm Hematocrit (Bld) [Volume fraction] 38.3 % Normal 36.0-48.0 [facility] Comment on above: Performed By: #### C BC #### [facility] [address] [place] [address] Dr. Melissa Helm Hemoglobin (Bld) [Mass/Vol] 10.8 g/dL Critically low 12.0-16.0 [facility] Comment on above: Performed By: #### C BC #### [facility] [address] [place] [address] Dr. Melissa Helm IG # 0.07 10e3/ul Critically high 0.00-0.03 [facility] Comment on above: Performed By: #### C BC #### [facility] [address] [place] [address] Dr. Melissa Helm IG % 0.5 % Normal 0.0-0.5 [facility] Comment on above: Performed By: #### C BC #### [facility] [address] [place] [address] [address] Melissa Helm LYMPH # 2.2 103/ul Normal 1.2-3.8 [facility] Comment on above: Performed By: #### C BC #### [facility] [address] [place] [address] Dr. Melissa Helm Lymphocytes/100 WBC (Bld) 17.5 % Critically low 20.5-60.0 [facility] Comment on above: Performed By: #### C BC #### [facility] [address] [place] [address] Dr. Melissa Helm MANUAL DIFF REQ NO Normal [facility] Comment on above: Performed By: #### C BC #### [facility] [address] [place] [address] Dr. Melissa Helm MCH (RBC) [Entitic mass] 20.6 pg Critically low 26.7-34.0 [facility] Comment on above: Performed By: #### C BC #### [facility] [address] [place] [address] Dr. Melissa Helm MCHC (RBC) [Mass/Vol] 28.2 g/dL Critically low 29.9-35.2 [facility] Comment on above: Performed By: #### C BC #### [facility] [address] [place] [address] Dr. Melissa Helm MCV (RBC) [Entitic vol] 73.0 fL Critically low 81.0-99.0 [facility] Comment on above: Performed By: #### C BC #### [facility] [address] [place] [address] Dr. Melissa Helm MONO # 1.2 103/ul Critically high 0.3-0.8 [facility] Comment on above: Performed By: #### C BC #### [facility] [address] [place] [address] Dr. Melissa Helm Monocytes/100 WBC (Bld) 9.0 % Normal 1.7-12.0 [facility] Comment on above: Performed By: #### C BC #### [facility] [address] [place] [address] Dr. Melissa Helm NEUT # 8.9 103/ul Critically high 1.4-6.5 [facility] Comment on above: Performed By: #### C BC #### [facility] [address] [place] [address] Dr. Melissa Helm Neutrophils/100 WBC (Bld) 69.4 % Normal 43.0-75.0 [facility] Comment on above: Performed By: #### C BC #### [facility] [address] [place] [address] Dr. Melissa Helm PLT 184 103/ul Normal 150-450 [facility] Comment on above: Performed By: #### C BC #### [facility] [address] [place] [address] Dr. Melissa Helm RBC 5.25 106/ul Normal 4.20-5.40 [facility] Comment on above: Performed By: #### C BC #### [facility] [address] [place] [address] Dr. Melissa Helm WBC 12.8 103/ul Critically high 4.0-11.0 [facility] Comment on above: Performed By: #### C BC #### [facility] [address] [place] [address] Dr. Melissa Helm FERRITINon 10-06-2022 Ferritin [Mass/Vol] 33.0 ng/mL Normal 8.0-252.0 [facility] Comment on above: Performed By: #### F ERR, FETIBC #### [facility] [address] [place] [address] Dr. Melissa Helm IRON AND TIBCon 10-06-2022 % SATURATION 20.3 % Normal [facility] Comment on above: Performed By: #### F ERR, FETIBC #### [facility] [address] [place] [address] Dr. Melissa Helm Iron [Mass/Vol] 89.0 ug/dL Normal 50.0-170.0 [facility] Comment on above: Performed By: #### F ERR, FETIBC #### [facility] [address] [place] [address] Dr. Melissa Helm TIBC DIRECT 438.0 ug/dL Normal 250.0-450. 0 [facility] Comment on above: Performed By: #### F ERR, FETIBC #### [facility] [address] [place] [address] Dr. Melissa Juárez 09-11-2022 [facility] Telephone ([facility]) ----- ESSENCE VINCENT ([id number]) 1970 F Date Time Provider Department 09/11/22 [...] Reason for Visit: Research [293] Cmt: IRB [id number] TRIM-AF Prescriptions as of 09/11/2022 - torsemide [...] [I34.0] 07/16/2012 Pulmonary hypertension [I27.20] Dual chamber BLANKET CUTTING MACHINE OPERATOR-D [Z95.810] 07/23/2020 Primary hypertension [I10] Nicotine use disorder [F17.200] Exercise-induced asthma [J45.990] Anemia [D64.9] 10/29/2011 07/23/2020 H/o GERD [K21.9] 07/23/2020 Migraines [G43.909] H/o Depression/Anxiety/Sleep disturbance [F32.* Preop testing [Z01.818] 07/08/2012 07/23/2020 SUMMARY [V999.95] 07/11/2012 07/23/2020 Pulmonary hypertension, moderate to severe (HCC*2012 Other acute postoperative pain [G89.18] 07/13/2012 07/16/2012 Pulmonary insuff [WZI2340] 07/13/2012 07/23/2020 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 [...] Status:Closed by NADIR BRANDT on 09/11/22 Normal [facility] ICD REMOTE CHECKon 2 AV Delay Adaptive Paced Minimum (ms) 350 ms [facility] AV Delay Adaptive Rate Maximum (bpm) 90 {beats}/min [facility] AV Delay Adaptive Rate Minimum (bpm) 75 {beats}/min [facility] AV Delay Adaptive Sensed Minimum (ms) 250 ms [facility] AV Delay Adaptive Status ENABLED [facility] AV Delay Paced (ms) [address] [facility] AV Delay Sensed (ms) 70 ms [place] Battery Voltage 2.85 V [facility] Scott RA Pacing Amplitude (volts) 2 V [facility] Scott RA Pacing Polarity BI [facility] Scott RA Pacing Pulse Width (ms) 0.4 ms [facility] Scott RA Sensing Amplitude (mvolts) 0.3 mV [facility] Scott RA Sensing Blanking Period (ms) 150 ms [facility] Scott RA Sensing Polarity BI [facility] Scott RA Sensing Refractory Period (ms) 250 ms [facility] Scott RV Pacing Amplitude (volts) 2.5 V [facility] Scott RV Pacing Polarity BI [facility] Scott RV Pacing Pulse Width (ms) 0.4 ms [facility] Scott RV Sensing Amplitude (mvolts) 0.3 mV [facility] Scott RV Sensing Blanking Period (ms) 200 ms [facility] Scott RV Sensing Polarity BI [facility] Detection Configuration (Vent) 2 - Zone [facility] FastVT_Detection Interval 450 ms [facility] FastVT_Therapy Configuration 2 ATP(s) + 0 Shock(s) [facility] ICD AFIB DetectionStatus DISABLED [facility] ICD ATAF DetectionInterval ms 450 ms [facility] ICD ATAF DetectionStatus ENABLED [facility] ICD ATAF TherapyConfiguration 2 ATP(s) + 0 Shock(s) [facility] ICD FastVT DetectionStatus ENABLED [facility] ICD-ADLRATE_BPM 85 {beats}/min [facility] ICD-AMS EPISODES 133 {beats}/min [facility] ICD-ATP Episodes (Vent) 0 [facility] ICD-ATRIALFIBRILLATION 4 Cl [facility] ICD-ATRIALTACHYCARDIA 4 [facility] ICD-Counters Cleared Date 09/23/2016 [facility] ICD-Device Mfg MDT [facility] ICD-LEADIMPEDANCEATRIA L 361 ohm [facility] ICD-Percent Pacing (Atrial) 79.65 % [facility] ICD-Percent Pacing (Vent) 98.96 % [facility] ICD-PMT Intervention ENABLED [place] ICD-PVC Intervention ENABLED [place] ICD-Rate Modulation Acceleration Reaction 30 s [facility] ICD-Rate Modulation Deceleration Exercise [facility] ICD-Rate Modulation [place] 3 [facility] ICD-Rate Modulation Threshold MediumHigh [facility] ICD-Shocks Aborted (Vent) 0 [facility] [id number] 0 [place] ICD-SHOCKSABORTED 0 [facility] ICD-SHOCKSDELIVEREDVEN TRICULAR 0 [facility] ICD-Ventricular Fibrillation 0 [facility] Implant Date 07/03/2005 [facility] Implant Date 11/30/2002 [facility] Lead Impedance (LV) [address] [facility] Lead Impedance (RV) [address] [facility] Lead Impedance High Voltage 63 ohm [facility] Lead1 Mfg MDT [facility] Lead2 Mfg MDT [facility] Lead3 Mfg GDT [facility] Location LV [facility] Location RA [facility] Location RV [facility] Lower Rate (bpm) 80 {beats}/min [place] LV PACING % 0 % [facility] Max Sensor Rate (bpm) 90 {beats}/min [facility] MDT_PROG_TACHY_ZONE_DE TECTIONS_STATUS ENABLED [facility] Model [id number] Viva XT BLANKET CUTTING MACHINE OPERATOR-D [facility] Model 4196 Attain Ability MRI SureScan [facility] Model 5076 CapSureFix Novus [facility] Model 0144 [employer] Endurance Rx [facility] Pacing Mode DDDR [facility] Serial Number [id number] [facility] Serial Number [id number] [facility] Serial Number [id number] [facility] Serial Number [id number] [facility] Test Charge Energy 18 J [facility] Test Charge Time 4.464 [facility] Therapy Status (Vent) Enabled [facility] Thresh RA Capture Amplitude (volts) 0.625 V [facility] Thresh RA Capture Duration (ms) 0.4 ms [facility] Thresh RA Sensing Amplitude (mvolts) 2.375 mV [facility] Thresh RV Capture Amplitude (VOLTS) 1.25 V [facility] Thresh RV Capture Duration (MS) 0.4 ms [facility] Thresh RV Sensing Amplitude (MVOLTS) 12 mV [facility] Tracking Rate (bpm) 90 {beats}/min C [facility] VF Zone Detection Interval 450 ms [facility] VF Zone Therapy Configuration 2 ATP(s) + 0 Shock(s) [facility] No Panel Informationon 08-25 BLANK _ [facility] ICD-ATRIALTACHYCARDIA 0 [facility] ICD-Fast Ventricular Tachycardia 0 [facility] Implant Date 09/23/2016 [facility] ICD REMOTE CHECKon 2 AV Delay Adaptive Paced Minimum (ms) 350 ms [facility] AV Delay Adaptive Rate Maximum (bpm) 90 {beats}/min [facility] AV Delay Adaptive Rate Minimum (bpm) 75 {beats}/min [facility] AV Delay Adaptive Sensed Minimum (ms) 250 ms [facility] AV Delay Adaptive Status ENABLED [facility] AV Delay Paced (ms) [address] [facility] AV Delay Sensed (ms) 70 ms [place] Battery Voltage 2.86 V [facility] Scott RA Pacing Amplitude (volts) 2 V [facility] Scott RA Pacing Polarity BI [facility] Scott RA Pacing Pulse Width (ms) 0.4 ms [facility] [facility] RA Sensing Amplitude (mvolts) 0.3 mV [facility] RA Sensing Blanking Period (ms) 150 ms [facility] RA Sensing Polarity BI [facility] RA Sensing Refractory Period (ms) 250 ms [facility] RV Pacing Amplitude (volts) 3 V [facility] RV Pacing Polarity BI [facility] RV Pacing Pulse Width (ms) 0.4 ms [facility] Scott RV Sensing Amplitude (mvolts) 0.3 mV [facility] Scott RV Sensing Blanking Period (ms) 200 ms [facility] Scott RV Sensing Polarity BI [facility] Detection Configuration (Vent) 2 - Zone [facility] FastVT_Detection Interval 450 ms [facility] FastVT_Therapy Configuration 2 ATP(s) + 0 Shock(s) [facility] ICD AFIB DetectionStatus DISABLED [facility] ICD ATAF DetectionInterval ms 450 ms [facility] ICD ATAF DetectionStatus ENABLED [facility] ICD ATAF TherapyConfiguration 2 ATP(s) + 0 Shock(s) [facility] ICD FastVT DetectionStatus ENABLED [facility] ICD-ADLRATE_BPM 85 {beats}/min [facility] ICD-AMS EPISODES 133 {beats}/min [facility] ICD-ATP Episodes (Vent) 0 [facility] ICD-ATRIALFIBRILLATION 1 Cl [facility] ICD-ATRIALTACHYCARDIA 1 [facility] ICD-Counters Cleared Date 09/23/2016 [facility] ICD-Device Mfg MDT [facility] ICD-LEADIMPEDANCEATRIA L 361 ohm [facility] ICD-Percent Pacing (Atrial) 84.32 % [facility] ICD-Percent Pacing (Vent) 99.05 % [facility] ICD-PMT Intervention ENABLED [place] ICD-PVC Intervention ENABLED [place] ICD-Rate Modulation Acceleration Reaction 30 s [facility] ICD-Rate Modulation Deceleration Exercise [facility] ICD-Rate Modulation Linn 3 [facility] ICD-Rate Modulation Threshold MediumHigh [facility] ICD-Shocks Aborted (Vent) 0 [facility] [id number] 0 [place] ICD-SHOCKSABORTED 0 [facility] ICD-SHOCKSDELIVEREDVEN TRICULAR 0 [facility] ICD-Ventricular Fibrillation 0 [facility] Implant Date 07/03/2005 [facility] Implant Date 11/30/2002 [facility] Lead Impedance (LV) [address] [facility] Lead Impedance (RV) [address] [facility] Lead Impedance High Voltage 63 ohm [facility] Lead1 Mfg MDT [facility] Lead2 Mfg MDT [facility] Lead3 Mfg GDT [facility] Location LV [facility] Location RA [facility] Location RV [facility] Lower Rate (bpm) 80 {beats}/min [place] LV PACING % 0 % [facility] Max Sensor Rate (bpm) 90 {beats}/min [facility] MDT_PROG_TACHY_ZONE_DE TECTIONS_STATUS ENABLED [facility] Model [id number] Viva XT BLANKET CUTTING MACHINE OPERATOR-D [facility] Model 4196 Attain Ability MRI SureScan [facility] Model 5076 CapSureFix Novus [facility] Model 0144 [employer] Rx [facility] Pacing Mode DDDR [facility] Serial Number [id number] [facility] Serial Number [id number] [facility] Serial Number [id number] [facility] Serial Number [id number] [facility] Test Charge Energy 18 J [facility] Test Charge Time 4.464 [facility] Therapy Status (Vent) Enabled [facility] Thresh RA Capture Amplitude (volts) 0.625 V [facility] Thresh RA Capture Duration (ms) 0.4 ms [facility] Thresh RA Sensing Amplitude (mvolts) 3.125 mV [facility] Thresh RV Capture Amplitude (VOLTS) 1.5 V [facility] Thresh RV Capture Duration (MS) 0.4 ms [facility] Thresh RV Sensing Amplitude (MVOLTS) 10.75 mV [facility] Tracking Rate (bpm) 90 {beats}/min [facility] VF Zone Detection Interval 450 ms [facility] VF Zone Therapy Configuration 2 ATP(s) + 0 Shock(s) [facility] No Panel Informationon 07-01 BLANK _ [facility] ICD-ATRIALTACHYCARDIA 0 [facility] ICD-Fast Ventricular Tachycardia 0 [facility] Implant Date 09/23/2016 [facility] ICD REMOTE CHECKon 2 AV Delay Adaptive Paced Minimum (ms) 350 ms [facility] AV Delay Adaptive Rate Maximum (bpm) 90 {beats}/min [facility] AV Delay Adaptive Rate Minimum (bpm) 75 {beats}/min [facility] AV Delay Adaptive Sensed Minimum (ms) 250 ms [facility] AV Delay Adaptive Status ENABLED [facility] AV Delay Paced (ms) [address] [facility] AV Delay Sensed (ms) 70 ms [place] Battery Voltage 2.85 V [facility] Scott LV Pacing Polarity BI [facility] RA Pacing Amplitude (volts) 2 V [facility] RA Pacing Polarity BI [facility] RA Pacing Pulse Width (ms) 0.4 ms [facility] RA Sensing Amplitude (mvolts) 0.3 mV [facility] RA Sensing Blanking Period (ms) 150 ms [facility] RA Sensing Polarity BI [facility] RA Sensing Refractory Period (ms) 250 ms [facility] RV Pacing Amplitude (volts) 2.75 V [facility] RV Pacing Polarity BI [facility] RV Pacing Pulse Width (ms) 0.4 ms [facility] RV Sensing Amplitude (mvolts) 0.3 mV [facility] RV Sensing Blanking Period (ms) 200 ms [facility] RV Sensing Polarity BI [facility] Detection Configuration (Vent) 2 - Zone [facility] FastVT_Detection Interval 450 ms [facility] FastVT_Therapy Configuration 2 ATP(s) + 0 Shock(s) [facility] ICD AFIB DetectionStatus DISABLED [facility] ICD ATAF DetectionInterval ms 450 ms [facility] ICD ATAF DetectionStatus ENABLED [facility] ICD ATAF TherapyConfiguration 2 ATP(s) + 0 Shock(s) [facility] ICD FastVT DetectionStatus ENABLED [facility] ICD-ADLRATE_BPM 85 {beats}/min [facility] ICD-AMS EPISODES 133 {beats}/min [facility] ICD-ATP Episodes (Vent) 0 [facility] ICD-ATRIALFIBRILLATION 117 Cl [facility] ICD-ATRIALTACHYCARDIA 117 [facility] ICD-Counters Cleared Date 09/23/2016 [facility] ICD-Device Sri GROSS [facility] ICD-LEADIMPEDANCEATRIA L 342 ohm [facility] ICD-Percent Pacing (Atrial) 67.54 % [facility] ICD-Percent Pacing (Vent) 96.8 % [facility] ICD-PMT Intervention ENABLED [place] ICD-PVC Intervention ENABLED [place] ICD-Rate Modulation Acceleration Reaction 30 s [facility] ICD-Rate Modulation Deceleration Exercise [facility] ICD-Rate Modulation Linn 3 [facility] ICD-Rate Modulation Threshold MediumHigh [facility] ICD-Shocks Aborted (Vent) 0 [facility] [id number] 0 [place] ICD-SHOCKSABORTED 0 [facility] ICD-SHOCKSDELIVEREDVEN TRICULAR 0 [facility] ICD-Ventricular Fibrillation 0 [facility] Implant Date 07/03/2005 [facility] Implant Date 11/30/2002 [facility] Lead Impedance (LV) [address] [facility] Lead Impedance (RV) [address] [facility] Lead Impedance High Voltage 60 ohm [facility] Lead1 Emilyg MDT [facility] Lead2 Sri MDT [facility] Lead3 Mfg GDT [facility] Location LV [facility] Location RA [facility] Location RV [facility] Lower Rate (bpm) 80 {beats}/min [place] LV PACING % 0 % [facility] Max Sensor Rate (bpm) 90 {beats}/min [facility] MDT_PROG_TACHY_ZONE_DE TECTIONS_STATUS ENABLED [facility] Model [id number] Viva XT BLANKET CUTTING MACHINE OPERATOR-D [facility] Model 4196 Attain Ability MRI SureScan [facility] Model 5076 CapSureFix Novus [facility] Model 0144 [employer] End[employer] Rx [facility] Pacing Mode DDDR [facility] Serial Number [id number] [facility] Serial Number [id number] [facility] Serial Number [id number] [facility] Serial Number [id number] [facility] Test Charge Energy 18 J [facility] Test Charge Time 4.464 [facility] Therapy Status (Vent) Enabled [facility] Thresh RA Capture Amplitude (volts) 0.625 V [facility] Thresh RA Capture Duration (ms) 0.4 ms [facility] Thresh RA Sensing Amplitude (mvolts) 2 mV [facility] Thresh RV Capture Amplitude (VOLTS) 1.375 V [facility] Thresh RV Capture Duration (MS) 0.4 ms [facility] Thresh RV Sensing Amplitude (MVOLTS) 10.375 mV [facility] Tracking Rate (bpm) 90 {beats}/min [facility] VF Zone Detection Interval 450 ms [facility] VF Zone Therapy Configuration 2 ATP(s) + 0 Shock(s) [facility] AV Delay Adaptive Paced Minimum (ms) 350 ms [facility] AV Delay Adaptive Rate Maximum (bpm) 90 {beats}/min [facility] AV Delay Adaptive Rate Minimum (bpm) 75 {beats}/min [facility] AV Delay Adaptive Sensed Minimum (ms) 250 ms [facility] AV Delay Adaptive Status ENABLED [facility] AV Delay Paced (ms) [address] [facility] AV Delay Sensed (ms) 70 ms [place] Battery Voltage 2.85 V [facility] LV Pacing Polarity BI [facility] RA Pacing Amplitude (volts) 2 V [facility] RA Pacing Polarity BI [facility] RA Pacing Pulse Width (ms) 0.4 ms [facility] RA Sensing Amplitude (mvolts) 0.3 mV [facility] RA Sensing Blanking Period (ms) 150 ms [facility] RA Sensing Polarity BI [facility] RA Sensing Refractory Period (ms) 250 ms [facility] RV Pacing Amplitude (volts) 2.75 V [facility] RV Pacing Polarity BI [facility] RV Pacing Pulse Width (ms) 0.4 ms [facility] RV Sensing Amplitude (mvolts) 0.3 mV [facility] RV Sensing Blanking Period (ms) 200 ms [facility] RV Sensing Polarity BI [facility] Detection Configuration (Vent) 2 - Zone [facility] FastVT_Detection Interval 450 ms [facility] FastVT_Therapy Configuration 2 ATP(s) + 0 Shock(s) [facility] ICD AFIB DetectionStatus DISABLED [facility] ICD ATAF DetectionInterval ms 450 ms [facility] ICD ATAF DetectionStatus ENABLED [facility] ICD ATAF TherapyConfiguration 2 ATP(s) + 0 Shock(s) [facility] ICD FastVT DetectionStatus ENABLED [facility] ICD-ADLRATE_BPM 85 {beats}/min [facility] ICD-AMS EPISODES 133 {beats}/min [facility] ICD-ATP Episodes (Vent) 0 [facility] ICD-ATRIALFIBRILLATION 117 Cl [facility] ICD-ATRIALTACHYCARDIA 117 [facility] ICD-Counters Cleared Date 09/23/2016 [facility] ICD-Device Mfg MDT [facility] ICD-LEADIMPEDANCEATRIA L 342 ohm [facility] ICD-Percent Pacing (Atrial) 67.54 % [facility] ICD-Percent Pacing (Vent) 96.8 % [facility] ICD-PMT Intervention ENABLED [place] ICD-PVC Intervention ENABLED [place] ICD-Rate Modulation Acceleration Reaction 30 s [facility] ICD-Rate Modulation Deceleration Exercise [facility] ICD-Rate Modulation Linn 3 [facility] ICD-Rate Modulation Threshold MediumHigh [facility] ICD-Shocks Aborted (Vent) 0 [facility] [id number] 0 [place] ICD-SHOCKSABORTED 0 [facility] ICD-SHOCKSDELIVEREDVEN TRICULAR 0 [facility] ICD-Ventricular Fibrillation 0 [facility] Implant Date 07/03/2005 [facility] Implant Date 11/30/2002 [facility] Lead Impedance (LV) [address] [facility] Lead Impedance (RV) [address] [facility] Lead Impedance High Voltage 60 ohm [facility] Lead1 Mfg MDT [facility] Lead2 Mfg MDT [facility] Lead3 Mfg GDT [facility] Location LV [facility] Location RA [facility] Location RV [facility] Lower Rate (bpm) 80 {beats}/min [place] LV PACING % 0 % [facility] Max Sensor Rate (bpm) 90 {beats}/min [facility] MDT_PROG_TACHY_ZONE_DE TECTIONS_STATUS ENABLED [facility] Model [id number] Viva XT BLANKET CUTTING MACHINE OPERATOR-D [facility] Model 4196 Attain Ability MRI SureScan [facility] Model 5076 CapSureFix Novus [facility] Model 0144 [employer] Endurance Rx [facility] Pacing Mode DDDR [facility] Serial Number [id number] [facility] Serial Number [id number] [facility] Serial Number [id number] [facility] Serial Number [id number] [facility] Test Charge Energy 18 J [facility] Test Charge Time 4.464 [facility] Therapy Status (Vent) Enabled [facility] Thresh RA Capture Amplitude (volts) 0.625 V [facility] Thresh RA Capture Duration (ms) 0.4 ms [facility] Thresh RA Sensing Amplitude (mvolts) 2 mV [facility] Thresh RV Capture Amplitude (VOLTS) 1.375 V [facility] Thresh RV Capture Duration (MS) 0.4 ms [facility] Thresh RV Sensing Amplitude (MVOLTS) 10.375 mV [facility] Tracking Rate (bpm) 90 {beats}/min [facility] VF Zone Detection Interval 450 ms [facility] VF Zone Therapy Configuration 2 ATP(s) + 0 Shock(s) [facility] No Panel Informationon 06-01 [facility] _ [facility] ICD-ATRIALTACHYCARDIA 0 [facility] ICD-Fast Ventricular Tachycardia 0 [facility] Implant Date 09/23/2016 [facility] BLANK _ [facility] ICD-ATRIALTACHYCARDIA 0 [facility] ICD-Fast Ventricular Tachycardia 0 [facility] Implant Date 09/23/2016 [facility] Office Visit (Cardiology)on 04-24-2022 Follow-up visit [...] Pacemaker Interrogation; Status:Active - Retrospective Authorization; Requested for:[id number]; Health Maintenance Renew: Isosorbide Mononitrate ER 30 MG Oral Tablet Extended Release 24 Hour; TAKE 1 TABLET DAILY Avoid alcoholic beverages.; Status:Complete - Retrospective Authorization; Done: [id number] Avoid foods and beverages that contain caffeine.; Status:Complete - Retrospective Authorization; Done: [id number] Begin or continue regular aerobic exercise. Gradually work up to at least 3 sessions of 30 minutes of exercise a week.; Status:Complete - Retrospective Authorization; Done: [id number] Diets that are low in carbohydrates and high in protein are very popular for weight loss.; Status:Complete - Retrospective Authorization; Done: [id number] Eat a low fat and low cholesterol diet.; Status:Complete - Retrospective Authorization; Done: [id number] Please bring all medicines, vitamins, and herbal supplements with you when you come to the office.; Status:Complete - Retrospective Authorization; Done: [id number] Restrict the salt in your diet by avoiding highly salted foods.; Status:Complete - Retrospective Authorization; Done: [id number] Health Maintenance, Overweight with body mass index (BMI) of 29 to 29.9 in adult Losing just 5 to 10 pounds may lower your risk of health problems.; Status:Complete - Retrospective Authorization; Done: [id number] SocHx: Former smoker Tobacco Use Screening; Status:Complete; Done: [id number] Patient Instructions Follow up with Dr. Nunez in 6 months and 1 year with a device check. Drink plenty of water daily. ILatesha, SIDE STITCHING MACHINE OPERATOR, am scribing for and in the presence of, Dr. Margareth Nunez, MA, FACC, FACP, [facility]. No list or bottles for comparison, patient or family member to call with any updates [phone] The provider reviewed the following test(s) and [...] for details. She has remote history of NC , cardiogenic shock, PCI circumflex and iABP, with persistent severe LV dysfunction. She later occluded her cicumflex. Years later, she had HF and severe MR and underwent mitral valve repair at [facility]. She had recurrent VT and atrial arrhythmias, and underwent several ablations and repeat percutaneous MVR at [facility]. After her MVR and ablation in July,, she had KALLI when then improved. She has had recurrent ICD shocks for atrial flutter. Personal review of ECG and cardiac data reviewed Outside records: EP study and successful ablation of atrial flutter. Multiple atrial tachycardias, possible left atrial tachycardia also noted and not targeted for ablation. December 2021. Discharge summary [facility] Oct 2021 Cardiology consult Oct 2021 ECG [...] heart failur (more content not included)... Normal i[place] Water Tobacco Screening.on 022 Fall risk assessment a) No falls within the last year [facility] [address] DO Work Phone: Tobacco use status CP a) Yes [facility] [address] DO Work Phone: Tobacco Screening. Yes [facility] [address] DO Work Phone: XR LSPINE 2_3 [...] by: JC BRAVO Date: 2022-04-24 07:14 Normal [facility] TRANSFERRINon 04-17-2022 Transferrin [Mass/Vol] 418 mg/dL Critically high 192-364 [facility] Comment on above: Performed By: #### T RANSFR #### [facility] [address] [place], [place] [address] Dr. Melissa Helm CBC AUTO DIFFon 04-16-2022 BASO # 0.2 103/ul Critically high 0.0-0.1 [facility] Comment on above: Performed By: #### C BC ####[facility] [address] [place] [address]DrTarun Helm Basophils/100 WBC (Bld) 1.2 % Normal 0.2-2.0 [facility] Comment on above: Performed By: #### C BC ####[facility] [address] [place] [address]Dr. Melissa Helm EO # 0.2 103/ul Normal 0.0-0.7 [facility] Comment on above: Performed By: #### C BC ####[facility] [address] [place] [address]Dr. Melissa Helm Eosinophils/100 WBC (Bld) 1.9 % Normal 0.9-7.0 [facility] Comment on above: Performed By: #### C BC ####[facility] [address] [place] [address]Dr. Melissa Helm Erythrocyte distribution width (RBC) [Ratio] 22.6 % Critically high 11.0-15.0 [facility] Comment on above: Performed By: #### C BC ####[facility] [address] [place] [address]DrTaurn Helm Hematocrit (Bld) [Volume fraction] 39.2 % Normal 36.0-48.0 [facility] Comment on above: Performed By: #### C BC ####[facility] [address] [place] [id number] Helm Hemoglobin (Bld) [Mass/Vol] 10.8 g/dL Critically low 12.0-16.0 [facility] Comment on above: Performed By: #### C BC ####[facility] [address] [place] [address]Dr. Melissa Helm IG # 0.03 10e3/ul Normal 0.00-0.03 [facility] Comment on above: Performed By: #### C BC ####[facility] [address] [place] [address]Dr. Melissa Helm IG % 0.2 % Normal 0.0-0.5 [facility] Comment on above: Performed By: #### C BC ####[facility] [address] [place] [address]Dr. Melissa Volodymyr LYMPH # 2.5 103/ul Normal 1.2-3.8 [facility] Comment on above: Performed By: #### C BC ####[facility] [address] [place], [place] [address]DrTarun Melissa Volodymyr Lymphocytes/100 WBC (Bld) 19.8 % Critically low 20.5-60.0 [facility] Comment on above: Performed By: #### C BC ####[facility] [address] [place], [place] [address]DrTarun Melissa Volodymyr MANUAL DIFF REQ NO Normal [facility] Comment on above: Performed By: #### C BC ####[facility] [address] [place], [place] [address]Dr. Melissa Helm MCH (RBC) [Entitic mass] 18.6 pg Critically low 26.7-34.0 [facility] Comment on above: Performed By: #### C BC ####[facility] [address] [place], [place] [address]DrTarun Melissa Helm MCHC (RBC) [Mass/Vol] 27.6 g/dL Critically low 29.9-35.2 [facility] Comment on above: Performed By: #### C BC ####[facility] [address] [place], [place] [address]DrTarun Melissa Volodymyr MCV (RBC) [Entitic vol] 67.4 fL Critically low 81.0-99.0 [facility] Comment on above: Performed By: #### C BC ####[facility] [address] [place], [place] [address]Dr. Melissa Helm MONO # 1.2 103/ul Critically high 0.3-0.8 [facility] Comment on above: Performed By: #### C BC ####[facility] [address]bs[address]nvahf[address] [place] [address]Dr. Melissa Helm Monocytes/100 WBC (Bld) 10.0 % Normal 1.7-12.0 [facility] Comment on above: Performed By: #### C BC ####[facility] Byniywhigj[address] [place] [address]Dr. Melissa Helm NEUT # 8.3 103/ul Critically high 1.4-6.5 [facility] Comment on above: Performed By: #### C BC ####[facility] [address] [place], [place] [address]Dr. Melissa Helm Neutrophils/100 WBC (Bld) 66.9 % Normal 43.0-75.0 [facility] Comment on above: Performed By: #### C BC ####[facility] Wmikwbkvsy3861 [place] [address]Dr. Melissa Helm PLT 235 103/ul Normal 150-450 [facility] Comment on above: Performed By: #### C BC ####[facility] [address]kw[address] [place], [place] [address]Dr. Melissa Helm RBC 5.82 106/ul Critically high 4.20-5.40 [facility] Comment on above: Performed By: #### C BC ####[facility] [address]sc[address] [place], [place] [address]Dr. Melissa Helm WBC 12.4 103/ul Critically high 4.0-11.0 [facility] Comment on above: Performed By: #### C BC ####[facility] [address]uz[address] [place], [place] [address]Dr. Melissa Helm FERRITINon 04-16-2022 Ferritin [Mass/Vol] 27.0 ng/mL Normal 8.0-252.0 [facility] Comment on above: Performed By: #### F ETIBC, FERR ####[facility] [address] [place], [place] [address]Dr. Melissa Helm FREE T3on 04-16-2022 FREE T3 3.09 pg/mlL Normal 2.18-3.98 [facility] Comment on above: Performed By: #### C MP, FT3, LIPID, TSH ####[facility] [address] [place] [id number]. Melissa Helm IRON AND TIBCon 04-16-2022 % SATURATION 5.4 % Normal [facility] Comment on above: Performed By: #### F ETIBC, FERR ####[facility] Lsaqsiqnec[address] [place] [id number]. Melissa Helm Iron [Mass/Vol] 26.0 ug/dL Critically low 50.0-170.0 [facility] Comment on above: Performed By: #### F ETIBC, FERR ####[facility] Yyygvvmydu[address] [place] [address]Dr. Melissa Helm TIBC DIRECT 483.0 ug/dL Critically high 250.0-450. 0 [facility] Comment on above: Performed By: #### F ETIBC, FERR ####[facility] Blpvqqkifn5[address] [place] [address]Dr. Melissa Helm LIPID PROFILEon 04-16-2022 CHOL-HDL RATIO NORM SEE BELOW Normal [facility] Comment on above: Result Comment: 3.3 - 4.4 LOW RISK 4.4 - 7.1 AVERAGE RISK 7.1 - 11.0 MODERATE RISK >11.0 HIGH RISK Performed By: #### C MP, FT3, LIPID, TSH ####[facility] R[address]jjbw[address] [place] [id number]. Melissa Helm Cholesterol [Mass/Vol] 131 mg/dL Normal <=200 Th [facility] Comment on above: Performed By: #### C MP, FT3, LIPID, TSH ####[facility] [address]md[address]wbvbf[address] [place] [address]Dr. Melissa Helm Cholesterol in HDL [Mass/Vol] 51 mg/dL Normal 40-60 [facility] Comment on above: Performed By: #### C MP, FT3, LIPID, TSH ####[facility] Jedikerntm[address] [place] [address]Dr. Melissa Helm Cholesterol in LDL [Mass/Vol] 54.0 mg/dL Normal [facility] Comment on above: Performed By: #### C MP, FT3, LIPID, TSH ####[facility] Qktrzvvitf32[address] [place] [address]Dr. Melissa Helm Cholesterol.total/Chol esterol in HDL [Mass ratio] 2.6 {ratio} Normal [facility] Comment on above: Performed By: #### C MP, FT3, LIPID, TSH ####[facility] Ipjkqa[address]yp[address] [place] [address]Dr. Melissa Helm HDL NORMAL > or = 60 mg/dl - LO W CARDIOVASCULAR RISK <40 mg/dl - HIGH CARDIOVASCULAR RISK Normal [facility] Comment on above: Performed By: #### C MP, FT3, LIPID, TSH ####[facility] Dzccusudzz[address] [place] [address]Dr. Melissa Helm LDL CALC NORMAL SEE BELOW Normal [facility] Comment on above: Result Comment: <100 mg/dl OPTIMAL 100 - 129 mg/dl NEAR OR ABOVE OPTIMAL 130 - 159 mg/dl BORDERLINE HIGH 160 - 189 mg/dl HIGH >190 mg/dl VERY HIGH Performed By: #### C MP, FT3, LIPID, TSH ####[facility] U[address]xx[address]bgw[address] [place] [address]Dr. Melissa Helm Triglyceride [Mass/Vol] 130 mg/dL Normal <=150 [facility] Comment on above: Performed By: #### C MP, FT3, LIPID, TSH ####[facility] Nwbqtbferw7856 [place] [address]Dr. Melissa Helm VLDL CALC 26.0 mg/dL Normal [facility] Comment on above: Performed By: #### C MP, FT3, LIPID, TSH ####[facility] Cqlxgslxsg8[address] [place] [address]Dr. Melissa Helm PROF 14(COMP METB)on 022 Albumin [Mass/Vol] 4.0 g/dL Normal 3.4-5.0 [facility] Comment on above: Performed By: #### C MP, FT3, LIPID, TSH ####[facility] Uzwbkgelqc65[address] [place] [address]Dr. Melissa Helm Albumin/Globulin [Mass ratio] 0.9 {ratio} Normal [facility] Comment on above: Performed By: #### C MP, FT3, LIPID, TSH ####[facility] Rywlcxbmga[address]372 [place] [address]Dr. Melissa Helm ALP [Catalytic activity/Vol] 263 U/L Critically high 46-116 [facility] Comment on above: Performed By: #### C MP, FT3, LIPID, TSH ####[facility] Px[address]ourpfja[address] [place] [address]Dr. Meilssa Helm ALT [Catalytic activity/Vol] 9 U/L Critically low 14-59 [facility] Comment on above: Performed By: #### C MP, FT3, LIPID, TSH ####[facility] Rcjdjdsfoi6336 [place] [address]Dr. Melissa Helm Anion gap [Moles/Vol] 14.7 mmol/L Normal [facility] Comment on above: Performed By: #### C MP, FT3, LIPID, TSH ####[facility] [address] [place], [place] [address]Dr. Melissa Helm AST [Catalytic activity/Vol] 15 U/L Normal 15-37 [facility] Comment on above: Performed By: #### C MP, FT3, LIPID, TSH ####[facility] Rgkbyehclh[address] [place] [address]Dr. Melissa Helm Bilirubin [Mass/Vol] 0.4 mg/dL Normal 0.2-1.0 [facility] Comment on above: Performed By: #### C MP, FT3, LIPID, TSH ####[facility] Sjcbsdsvrp5642 [place] [address]Dr. Melissa Helm Calcium [Mass/Vol] 9.1 mg/dL Normal 8.5-10.1 [facility] Comment on above: Performed By: #### C MP, FT3, LIPID, TSH ####[facility] Sccqkaytcx[address] [place] [address]Dr. Melissa Helm Chloride [Moles/Vol] 98 mmol/L Normal 98-107 [facility] Comment on above: Performed By: #### C MP, FT3, LIPID, TSH ####[facility] Pmnggjxiuh5[address] [place] [address]Dr. Melissa Helm CO2 [Moles/Vol] 27.5 mmol/L Normal 21.0-32.0 [facility] Comment on above: Performed By: #### C MP, FT3, LIPID, TSH ####[facility] Hanjttztyd[address] [place] [address]Dr. Melissa Helm Creatinine [Mass/Vol] 1.08 mg/dL Critically high 0.55-1.02 [facility] Comment on above: Performed By: #### C MP, FT3, LIPID, TSH ####[facility] Fdiuscpiju[address] [place] [address]Dr. Melissa Helm EGFR-AF CUBAN >60 Normal >=60 [facility] Comment on above: Performed By: #### C MP, FT3, LIPID, TSH ####[facility] Qqvdquqcbg8418 [place] [address]Dr. Melissa Helm EGFR-NON AF CUBAN 53 mL/min/1.73m2 Critically low >=60 [facility] Comment on above: Performed By: #### C MP, FT3, LIPID, TSH ####[facility] Hphccfhbyv59[address] [place] [address]Dr. Melissa Helm Globulin (S) [Mass/Vol] 4.3 g/dL Normal [facility] Comment on above: Performed By: #### C MP, FT3, LIPID, TSH ####[facility] Scgxbealqg4180 [place] [address]Dr. Melissa Helm Glucose [Mass/Vol] 80 mg/dL Normal 74-106 [facility] Comment on above: Performed By: #### C MP, FT3, LIPID, TSH ####[facility] Vatccwrbgk37[address] [place] [address]Dr. Melissa Helm Potassium [Moles/Vol] 3.2 mmol/L Critically low 3.5-5.1 [facility] Comment on above: Performed By: #### C MP, FT3, LIPID, TSH ####[facility] Uplngzayns4184 [place] [address]Dr. Melissa Helm Protein [Mass/Vol] 8.3 g/dL Critically high 6.4-8.2 [facility] Comment on above: Performed By: #### C MP, FT3, LIPID, TSH ####[facility] Xsseigpdey[address] [place] [address]Dr. Melissa Helm Sodium [Moles/Vol] 137 mmol/L Normal 136-145 [facility] Comment on above: Performed By: #### C MP, FT3, LIPID, TSH ####[facility] Alncnkymku94[address] [place] [address]Dr. Melissa Helm Urea nitrogen [Mass/Vol] 22.0 mg/dL Critically high 7.0-18.0 [facility] Comment on above: Performed By: #### C MP, FT3, LIPID, TSH ####[facility] Dcmeklkkqo0920 [place] [address]Dr. Melissa Helm Urea nitrogen/Creatinine [Mass ratio] 20.4 mg/mg Normal [facility] Comment on above: Performed By: #### C MP, FT3, LIPID, TSH ####[facility] Fwcjbgjonq9615 [place] [address]Dr. Melissa Volodymyr TSHon 04-16-2022 TSH 30.570 uIU/mL Critically high 0.358-3.74 0 [facility] Comment on above: Performed By: #### C MP, FT3, LIPID, TSH ####[facility] Lkoxtjjtkm07[address] [place] [address]Dr. Melissa Volodymyr ICD REMOTE CHECKon 2 AV Delay Adaptive Paced Minimum (ms) 350 ms [facility] AV Delay Adaptive Rate Maximum (bpm) 90 {beats}/min [facility] AV Delay Adaptive Rate Minimum (bpm) 75 {beats}/min [facility] AV Delay Adaptive Sensed Minimum (ms) 250 ms [facility] AV Delay Adaptive Status ENABLED [facility] AV Delay Paced (ms) [address] [facility] AV Delay Sensed (ms) 70 ms [place] Battery Voltage 2.87 V [facility] Scott LV Pacing Polarity BI [facility] Scott RA Pacing Amplitude (volts) 2 V [facility] Scott RA Pacing Polarity BI [facility] Scott RA Pacing Pulse Width (ms) 0.4 ms [facility] Scott RA Sensing Amplitude (mvolts) 0.3 mV [facility] Scott RA Sensing Blanking Period (ms) 150 ms [facility] Scott RA Sensing Polarity BI [facility] Scott RA Sensing Refractory Period (ms) 250 ms [facility] Scott RV Pacing Amplitude (volts) 3 V [facility] Scott RV Pacing Polarity BI [facility] Scott RV Pacing Pulse Width (ms) 0.4 ms [facility] Scott RV Sensing Amplitude (mvolts) 0.3 mV [facility] Scott RV Sensing Blanking Period (ms) 200 ms [facility] Scott RV Sensing Polarity BI [facility] Detection Configuration (Vent) 2 - Zone [facility] FastVT_Detection Interval 450 ms [facility] FastVT_Therapy Configuration 2 ATP(s) + 0 Shock(s) [facility] ICD AFIB DetectionStatus DISABLED [facility] ICD ATAF DetectionInterval ms 450 ms [facility] ICD ATAF DetectionStatus ENABLED [facility] ICD ATAF TherapyConfiguration 2 ATP(s) + 0 Shock(s) [facility] ICD FastVT DetectionStatus ENABLED [facility] ICD-ADLRATE_BPM 85 {beats}/min [facility] ICD-AMS EPISODES 133 {beats}/min [facility] ICD-ATP Episodes (Vent) 0 [facility] ICD-ATRIALFIBRILLATION 339 Cl [facility] ICD-ATRIALTACHYCARDIA 339 [facility] ICD-ATRIALTACHYCARDIA 5 [facility] ICD-ATRIALTACHYCARDIA 7 [facility] ICD-Counters Cleared Date 09/23/2016 [facility] ICD-Device Mfg MDT [facility] ICD-Fast Ventricular Tachycardia 7 [facility] ICD-LEADIMPEDANCEATRIA L 342 ohm [facility] ICD-Percent Pacing (Atrial) 58.38 % [facility] ICD-Percent Pacing (Vent) 88.05 % [facility] ICD-PMT Intervention ENABLED [place] ICD-PVC Intervention ENABLED [place] ICD-Rate Modulation Acceleration Reaction 30 s [facility] ICD-Rate Modulation Deceleration Exercise [facility] ICD-Rate Modulation Linn 3 [facility] ICD-Rate Modulation Threshold MediumHigh [facility] ICD-Shocks Aborted (Vent) 0 [facility] XOW-BTOMHO-AJTCNMPIF 0 [place] ICD-SHOCKSABORTED 0 [facility] ICD-SHOCKSDELIVEREDVEN TRICULAR 0 [facility] ICD-Ventricular Fibrillation 0 [facility] Implant Date 07/03/2005 [facility] Implant Date 11/30/2002 [facility] Lead Impedance (LV) [address] [facility] Lead Impedance (RV) [address] [facility] Lead Impedance High Voltage 57 ohm [facility] Lead1 Mfg MDT [facility] Lead2 Mfg MDT [facility] Lead3 Mfg GDT [facility] Location LV [facility] Location RA [facility] Location RV [facility] Lower Rate (bpm) 80 {beats}/min [place] LV PACING % 0 % [facility] Max Sensor Rate (bpm) 90 {beats}/min [facility] MDT_PROG_TACHY_ZONE_DE TECTIONS_STATUS ENABLED [facility] Model [id number] Viva XT BLANKET CUTTING MACHINE OPERATOR-D [facility] Model 4196 Attain Ability MRI SureScan [facility] Model 5076 CapSureFix Novus [facility] Model 0144 [employer] Rx [facility] Pacing Mode DDDR [facility] Serial Number [id number] [facility] Serial Number [id number] [facility] Serial Number [id number] [facility] Serial Number [id number] [facility] Test Charge Energy 18 J [facility] Test Charge Time 4.354 [facility] Therapy Status (Vent) Enabled [facility] Thresh RA Capture Amplitude (volts) 0.625 V [facility] Thresh RA Capture Duration (ms) 0.4 ms [facility] Thresh RA Sensing Amplitude (mvolts) 2 mV [facility] Thresh RV Capture Amplitude (VOLTS) 1.5 V [facility] Thresh RV Capture Duration (MS) 0.4 ms [facility] Thresh RV Sensing Amplitude (MVOLTS) 11.625 mV [facility] Tracking Rate (bpm) 90 {beats}/min [facility] VF Zone Detection Interval 450 ms [facility] VF Zone Therapy Configuration 2 ATP(s) + 0 Shock(s) [facility] No Panel Informationon 04-12 BLANK _ [facility] ICD-ATRIALTACHYCARDIA 0 [facility] ICD-Fast Ventricular Tachycardia 0 [facility] Implant Date 09/23/2016 [facility] COAGULATION SCREENon aPTT Coag (Bld) [Time] 29 s Normal 26 - 39 [facility] Comment on above: Result Comment: THE APTT IS NO LONGER USED FOR MONITORING UNFRACTIONATED HEPARIN THERAPY. FOR MONITORING HEPARIN THERAPY, USE THE HEPARIN ASSAY. Performed By: #### C OAGS #### [address] [id number] PT Coag (PPP) [Time] 16.1 s High 9.8 - 13.4 [facility] Comment on above: Performed By: #### C OAGS #### [address] [id number] PT, INR 1.4 High 0.9 - 1.1 [facility] Comment on above: Performed By: #### C OAGS #### [address] [id number] Discharge [id number] Discharge Profile2 Discharge Orders: DNAR: Code Status at Discharge: Full Code Appointments: Follow-Up Appointment 02: Physician/Dept/ServiceDrTarun Nunez Reason for ReferralFollow-up Scheduled Date/[id number] 13:20 [facility] Phone [phone] Electronic Signatures: Axel Rangel (COOR) (Signed 21-Jan-2022 09:13) Authored: Discharge Orders, Appointments, Gold Form - [place] Dining Room Attendant Summary Last Updated: 21-Jan-2022 09:13 by Axel Rangel (COOR) Normal [facility] Laboratory - Coagulationon 0 01-21-2022 aPTT Coag (PPP) [Time] 29 s 26 - 39 [facility] [address] [place] Work Phone: Comment on above: THE APTT IS NO LONGE R USED FOR MONITORING UNFRACTIONATED HEPARIN THERAPY. FOR MONITORING HEPARIN THERAPY, USE THE HEPARIN ASSAY. INR Coag (PPP) [Relative time] 1.4 {INR} above high threshold 0.9 - 1.1 [facility] [address] [place] Work Phone: PT Coag (PPP) [Time] 16.1 s above high threshold 9.8 - 13.4 [facility] [address] [place] Work Phone: No Panel Informationon 01-21 [email or web address]?RetrieveTestByDateTime ?CzokjbhCC=[id number]&Date =21-01-2022&Time=17%3a39% 3a41%3a00&TestType=ECG&Si te=11&OutputType=PDF&Ext= PDF [facility] [address] [place] Work Phone: Ventricular-paced rhythm [facility] [address] [place] Work Phone: Abnormal [facility] [address] [place] Work Phone: [phone] [facility] [address] [place] Work Phone: [phone] 1 [facility] [address] [place] Work Phone: [phone] 1 [facility] [address] [place] Work Phone: [phone] [facility] [address] [place] Work Phone: [phone] 1 [facility] [address] [place] Work Phone: [phone] [facility] [address] [place] Work Phone: [phone] 1 [facility] [address] [place] Work Phone: [phone] 1 [facility] [address] [place] Work Phone: [phone] 1 [facility] [address] [place] Work Phone: [phone] 1 [facility] [address] [place] Work Phone: [phone] 1 [facility] [address] [place] Work Phone: [phone] [email or web address] ?QzftachZC=[id number]&Date =21-01-2022&Time=09%3a40% 3a37%3a00&TestType=ECG&Si te=11&OutputType=PDF&Ext= PDF [facility] [address] [place] Work Phone: Atrial-paced rhythm [facility] [address] [place] Work Phone: [phone] [facility] [address] [place] Work Phone: [phone] 1 [facility] [address] [place] Work Phone: [phone] 1 [facility] [address] [place] Work Phone: [phone] 1 [facility] [address] [place] Work Phone: [phone] 1 [facility] [address] [place] Work Phone: [phone] 1 [facility] [address] [place] Work Phone: [phone] 1 [facility] [address] [place] Work Phone: [phone] 1 [facility] [address] [place] Work Phone: [phone] 1 [facility] [address] [place] Work Phone: [phone] 1 [facility] [address] [place] Work Phone: [phone] 1 [facility] [address] [place] Work Phone: [phone] 1 [facility] [address] [place] Work Phone: [phone] 1 [facility] [address] [place] Work Phone: [phone] 1 [facility] [address] [place] Work Phone: [phone] [facility] [address] [place] Work Phone: Order Reconciliationon 01-21 Order Reconciliation Page 1 Admission Reconciliation Document Reconciliation Type: Observation requested on behalf of Yessi Miller (Advanced Practice Nurse) done by Yessi Miller (MEDICAL DELIVERY TECHNICIAN-[facility]) Observation - Reconciliation: 21-Jan-2022 16:52 by: Yessi Miller (MEDICAL DELIVERY TECHNICIAN-[facility]ERT[facility]) Home MedicationsEnteredLast Dose TakenReconciled with current Order Reconciliation Comment/ Additional Information amiodarone 400 mg oral tablet 1 tab(s) orally once a oss28-Csn-357721-Jan-2022 AM Amiodarone Tablet (CORDARONE; PACERONE)DOSE = 400 [...] oral tablet 1 tab(s) orally once a iwj06-Dro-343021-Jan-2022 PM Atorvastatin Tablet (LIPITOR)DOSE = 80 mg Oral Daily atorvastatin 80 mg oral tablet continued as the inpatient order Atorvastatin duxpvtfvzd-ezgd-jvldbebl 50-300-40mg 1 cap(s) orally 2 times a crb80-Caq-886721-Jan-2022 Reviewed and Held escitalopram 20 mg oral tablet 1 tab(s) orally once a gbo64-Kuo-826021-Jan-2022 AM Escitalopram Tablet (LEXAPRO)DOSE = 20 mg Oral Daily escitalopram 20 mg oral tablet continued as the inpatient order Escitalopram KlonoPIN Wafer 0.5 mg oral tablet, disintegrating 1 tab(s) orally 3 times daily [id number] PM clonazePAM (KLONOPIN) TabletDOSE = 0.5 mg Oral Every 8 HoursKlonoPIN Wafer 0.5 mg oral tablet, disintegrating continued as the inpatient order clonazePAM (KLONOPIN) Mag-Ox 400 oral tablet 1 tab(s) orally 2 times a tdf21-Hjb-161071-Nlw-9311 AM Magnesium Oxide Tablet (Mag-Ox)DOSE = 400 mg Oral DailyMag-Ox 400 oral tablet continued as the inpatient order Magnesium Oxide Metoprolol Succinate ER 100 mg oral tablet, extended release 1 tab(s) orally once a sra02-Uam-797444-Luy-5052 PM Metoprolol Succinate Extended Release Tablet, Extended Release (TOPROL-XL)DOSE = 100 mg Oral DailyMetoprolol Succinate ER 100 mg oral tablet, extended release continued as the inpatient order Metoprolol Succinate Extended Release Multiple Vitamins oral tablet, dispersible 1 tab(s) orally once a day [id number] Reviewed and Held Nitrostat 0.4 mg sublingual tablet 1 tab(s) sublingual every 5 minutes, As Bcrtdx07-Adp-1713DYQJQSX UNKNOWN Nitroglycerin SubLingual Tablet (NITROSTAT)DOSE = 0.4 mg SubLingual Every 5 Minutes, PRN AnginaNitrostat 0.4 mg sublingual tablet continued as the inpatient order Nitroglycerin SubLingual omeprazole 40 mg oral delayed release capsule 1 cap(s) orally once a day [id number] AM Pantoprazole Enteric Coated Tablet (PROTONIX)DOSE = 40 mg Oral DailyNotes from Pharmacy: Substitution for Omeprazole 40 mg Oral Capsule Dailyomeprazole 40 mg oral delayed release capsule continued as the inpatient order Pantoprazole Potassium Chloride (Uhj-Xkzg-Zyd M20) 20 mEq oral tablet, extended release 1 tab(s) orally once a aao07-Pfe-426261-Lyw-1705 AM Potassium Chloride Extended Release Tablet, Extended ReleaseDOSE = 20 mEq Oral DailyPotassium Chloride (Owh-Avis-Gkr M20) 20 mEq oral tablet, extended release continued as the inpatient order Potassium Chloride Extended Release rOPINIRole 0.25 mg oral tablet 3 tab(s) orally once a day (at bedtime) [id number]-Qyh-2921 PM rOPINIRole (REQUIP) TabletDOSE = 0.75 mg Oral At BedtimerOPINIRole 0.25 mg oral tablet continued as the inpatient order rOPINIRole (REQUIP) torsemide 20 mg oral tablet 1 tab(s) orally once a wvr88-Wxc-342227-Lit-4354 AM Torsemide Tablet (DEMADEX)DOSE = 20 mg Oral Dailytorsemide 20 mg oral tablet continued as the inpatient order Torsemide traZODone 50 mg oral tablet 1 tab(s) orally once a day (at bedtime), As Needed [id number]-Xws-6505 PM traZODone Tablet (DESYREL)DOSE = 50 mg Oral At Bedtime, PRN InsomniatraZODone 50 mg oral tablet continued as the inpatient order traZODone warfarin 5 mg oral tablet 1 tab(s) orally once a day. Resume 01/22/2022. [id number] 8:00 AM Reviewed and Held Additional Current [...] mL Run at: 10 mL/hr IntraVenous Normal [facility] Order Reconciliation Page 1 Discharge Reconciliation Document Reconciliation Type: Discharge requested on behalf of Yessi Miller (Advanced Practice Nurse) done by Yessi Miller (MEDICAL DELIVERY TECH[facility]IC[facility]) Discharge - Reconciliation: 21-Jan-2022 16:48 by: Yessi Miller (MEDICAL DELIVERY TECHNICIAN-CERTIFIED PARALEGAL) Home Medications EnteredHOME MEDICATIONS AT DISCHARGE DateReconciliation [...] continued as atorvastatin 80 mg oral tablet zutldlqitf-gqct-ydjnrxpm 50-300-40mg 1 cap(s) orally 2 times a day 30-Dec-2021 10:27 whynzguycj-lwbm-nspilhwe 50-300-40mg 1 cap(s) orally 2 times a day 30-Dec-2021 10:27 gplqktufuu-qsrl-hfxaqbnt 50-300-40mg is continued as gupohvykpq-ncps-qmvumgyb 50-300-40mg escitalopram 20 mg oral tablet 1 [...] mg oral delayed release capsule Potassium Chloride (Lxv-Hlbv-Shf M20) 20 mEq oral tablet, extended release 1 tab(s) orally once a day 30-Dec-2021 10:33 Potassium Chloride (Bvj-Xwwl-Vsq M20) 20 mEq oral tablet, extended release 1 tab(s) orally once a day 30-Dec-2021 10:33 Potassium Chloride (Prc-Ylgw-Jta M20) 20 mEq oral tablet, extended release is continued as Potassium Chloride (Wej-Zbny-Nuu M20) 20 mEq oral tablet, extended release [...] and modifie (more content not included)... Normal [facility] Patient Profile - Preop v3on 01-21-2022 Patient Profile - Preop v3 Patient Profile - Preop: Initial Info: Patient DemographicsName: ESSENCE VINCENT Date: 1970 Address: [address] [place] [address] Date/Time [id number] Primary Phone [phone] How to be AddressedSherry Spoken Language PreferredEnglish Source of Informationpatient Stated Reason for AdmissionTEE/EP study and ablation Primary Contact Name and NumberDarian Singer (significant other) [phone] Limitations on Visitors/Phone Callsnone Medications Brought to Hospitalno General Health: Weight in kg76.6 kilogram(s) Weight in rgv746.8 pound(s) Weight Methodactual (measured) Scale Typestanding Height [...] disease; dyslipidemia Cardiovascular Management Strategiesroutine screening; medical billing coordinator; medication therapy Barriers to Managing Healthnone Relationship/Environ: Lives Withalone Living Arrangementsapartment Resource/Environmental Concernsnone Anticipated Transition [facility] Anticipated at Transitionnone Tobacco Use: Tobacco Useno Pre-op Checklist: Arrival [id number] Arrival Time09:21 Procedure TypeTEE/EPS/Ablation NPOyes Last Food [id number] 23:00 Last Clear Fluid [id number]-[id number] 07:00 ID Band On Patientpatient ID (name), [...] Updated: 21-Jan-2022 11:18 by Nannette Alvarez (ELZA) [facility] Transesophageal Echoon 01-21 Transesophageal Echo [place] [id number] TRANSESOPHAGEAL ECHOCARDIOGRAM REPORT Patient Name: ESSENCE Franco Hernandez Physician: [id number] Soco VINCENT Study Date: 01/21/2022 Referring [id number] SOCO BHARDWAJ Physician: MRN/PID: [id number] PCP: Accession/Order#: [id number] Department 2S CathLab Location: Date of : 1970 Fellow: Gender: F Nurse: Yolanda Farrell RN Admit Date: 01/21/2022 Certified Caregiver: Trina Obregon [facility] Admission Status: Outpatient Additional Staff: Height: 157.00 cm CC Report to: Weight: 76.00 kg Study Type: Transesophageal Echo BSA: 1.77 m2 Blood Pressure: 128 /63 mmHg Diagnosis/ICD: Z01.810-Encounter for preprocedural cardiovascular examination Indication: PRE-EP Procedure/CPT: JOVITA Complete-[id number]; Moderate Sedation Services initial 15 minutes patient >5 years-21046 Study Detail: The following Echo studies were [...] RV Syst Pressure: 40.5 mmHg (< 30mmHg) [id number] Soco Bhardwaj MD Electronically signed on 01/21/2022 at 2:53:[address] [facility] Transesophageal Echo MP-N [facility] [address] [place] Work Phone: ICD REMOTE CHECKon 2 AV Delay Adaptive Paced Minimum (ms) 350 ms [facility] AV Delay Adaptive Rate Maximum (bpm) 90 {beats}/min [facility] AV Delay Adaptive Rate Minimum (bpm) 75 {beats}/min [facility] AV Delay Adaptive Sensed Minimum (ms) 250 ms [facility] AV Delay Adaptive Status ENABLED [facility] AV Delay Paced (ms) [address] [facility] AV Delay Sensed (ms) 70 ms [place] Battery Voltage 2.9 V [facility] Scott LV Pacing Polarity BI [facility] Scott RA Pacing Amplitude (volts) 2 V [facility] Scott RA Pacing Polarity BI [facility] Scott RA Pacing Pulse Width (ms) 0.4 ms [facility] Scott RA Sensing Amplitude (mvolts) 0.3 mV [facility] Scott RA Sensing Blanking Period (ms) 150 ms [facility] Scott RA Sensing Polarity BI [facility] Scott RA Sensing Refractory Period (ms) 250 ms [facility] Scott RV Pacing Amplitude (volts) 3 V [facility] Scott RV Pacing Polarity BI [facility] Scott RV Pacing Pulse Width (ms) 0.4 ms [facility] Scott RV Sensing Amplitude (mvolts) 0.3 mV [facility] Scott RV Sensing Blanking Period (ms) 200 ms [facility] Scott RV Sensing Polarity BI [facility] Detection Configuration (Vent) 2 - Zone [facility] FastVT_Detection Interval 450 ms [facility] FastVT_Therapy Configuration 2 ATP(s) + 0 Shock(s) [facility] ICD ATAF DetectionInterval ms 450 ms [facility] ICD ATAF DetectionStatus ENABLED [facility] ICD ATAF TherapyConfiguration 2 ATP(s) + 0 Shock(s) [facility] ICD FastVT DetectionStatus ENABLED [facility] ICD-ADLRATE_BPM 85 {beats}/min [facility] ICD-AMS EPISODES 133 {beats}/min [facility] ICD-ATP Episodes (Vent) 0 [facility] ICD-ATRIALFIBRILLATION 2063 Cl [facility] ICD-ATRIALTACHYCARDIA 2063 [facility] ICD-ATRIALTACHYCARDIA 17 [facility] ICD-Counters Cleared Date 09/23/2016 [facility] ICD-Device Mfg MDT [facility] ICD-LEADIMPEDANCEATRIA L 304 ohm [facility] ICD-Percent Pacing (Atrial) 24.69 % [facility] ICD-Percent Pacing (Vent) 20.79 % [facility] ICD-PMT Intervention ENABLED [place] ICD-PVC Intervention ENABLED [place] ICD-Rate Modulation Acceleration Reaction 30 s [facility] ICD-Rate Modulation Deceleration Exercise [facility] ICD-Rate Modulation Linn 3 [facility] ICD-Rate Modulation Threshold MediumHigh [facility] ICD-Shocks Aborted (Vent) 0 [facility] UDA-NDKYFV-TAWXOFZYP 0 [place] ICD-SHOCKSABORTED 0 [facility] ICD-SHOCKSDELIVEREDVEN TRICULAR 0 [facility] ICD-Ventricular Fibrillation 0 [facility] Implant Date 07/03/2005 [facility] Implant Date 11/30/2002 [facility] Lead Impedance (LV) [address] [facility] Lead Impedance (RV) [address] [facility] Lead Impedance High Voltage 54 ohm [facility] Lead1 Mfg MDT [facility] Lead2 Mfg MDT [facility] Lead3 Mfg GDT [facility] Location LV [facility] Location RA [facility] Location RV [facility] Lower Rate (bpm) 60 {beats}/min [place] LV PACING % 0 % [facility] Max Sensor Rate (bpm) 90 {beats}/min [facility] MDT_PROG_TACHY_ZONE_DE TECTIONS_STATUS ENABLED [facility] Model [id number] Viva XT BLANKET CUTTING MACHINE OPERATOR-D [facility] Model 4196 Attain Ability MRI SureScan [facility] Model 5076 CapSureFix Novus [facility] Model 0144 [employer] Rx [facility] Pacing Mode DDDR [facility] Serial Number [id number] [facility] Serial Number [id number] [facility] Serial Number [id number] [facility] Serial Number [id number] [facility] Test Charge Energy 18 J [facility] Test Charge Time 4.324 [facility] Therapy Status (Vent) Enabled [facility] Thresh RA Capture Amplitude (volts) 0.625 V [facility] Thresh RA Capture Duration (ms) 0.4 ms [facility] Thresh RA Sensing Amplitude (mvolts) 2 mV [facility] Thresh RV Capture Amplitude (VOLTS) 1.375 V [facility] Thresh RV Capture Duration (MS) 0.4 ms [facility] Thresh RV Sensing Amplitude (MVOLTS) 10.125 mV [facility] Tracking Rate (bpm) 90 {beats}/min [facility] VF Zone Detection Interval 450 ms [facility] VF Zone Therapy Configuration 2 ATP(s) + 0 Shock(s) [facility] No Panel Informationon 01-14 BLANK _ [facility] ICD-ATRIALTACHYCARDIA 0 [facility] ICD-Fast Ventricular Tachycardia 0 [facility] Implant Date 09/23/2016 [facility] Prothrombin Time INRon 12-23 INR Coag (PPP) [Relative time] 3.3 {INR} [employer] Other Prothrombin Time INR [employer] Other Prothrombin Time INRon 04-12 -2022 INR Coag (PPP) [Relative time] 1.2 {INR} [facility] [employer] Other Prothrombin Time INR [employer] Other Office Visit (Cardiology)on 12-05-2021 Follow-up visit [...] Lab Procedures; Status:Active - Retrospective Authorization; Requested for:[id number]; Atrial flutter, unspecified type, Pre-operative cardiovascular examination Complete Blood Count + Differential; Status:Active - Retrospective Authorization; Requested for:[id number]; Complete Blood Count; Status:Active - Retrospective Authorization; Requested for:[id number]; CORONAVIRUS 2019 RNA BY PCR, SCREEN ASYMPTOMATIC AMBULATORY; Status:Hold For - Specimen/Data Collection,Retrospective Authorization; Requested for:[id number]; ? : Unknown RESIDENT IN CONGREGATE CARE SETTING? : Unknown ICU? : No HOSPITALIZED (OR PLANNED TO BE ADMITTED)? : No SYMPTOMATIC DEFINED BY CDC? : No EMPLOYED IN HEALTHCARE? : Unknown FIRST COVID NASAL SWAB TEST? : Unknown PT/INR; Status:Active - Retrospective Authorization; Requested for:05Dec2021; Atrial tachycardia Transesophageal Echo; Status:Hold For - Scheduling,Retrospective Authorization; Requested for:05Dec2021; Health Maintenance Avoid alcoholic beverages.; Status:Complete - Retrospective Authorization; Done: [id number] Avoid foods and beverages that contain caffeine.; Status:Complete - Retrospective Authorization; Done: [id number] Begin or continue regular aerobic exercise. Gradually work up to at least 3 sessions of 30 minutes of exercise a week.; Status:Complete - Retrospective Authorization; Done: 43Tsi1485 Diets that are low in carbohydrates and high in protein are very popular for weight loss.; Status:Complete - Retrospective Authorization; Done: [id number] Eat a low fat and low cholesterol diet.; Status:Complete - Retrospective Authorization; Done: [id number] Losing just 5 to 10 pounds may lower your risk of health problems.; Status:Complete - Retrospective Authorization; Done: 05Dec2021 Please bring all medicines, vitamins, and herbal supplements with you when you come to the office.; Status:Complete - Retrospective Authorization; Done: [id number] Restrict the salt in your diet by avoiding highly salted foods.; Status:Complete - Retrospective Authorization; Done: 05Dec2021 SocHx: Former smoker Tobacco Use Screening; Status:Complete; Done: 05Dec2021 Patient Instructions HOLD WARFARIN 4 DAYS PRIOR TO PROCEDURE, BRIDGE WITH LOVENOX. GIVE 1 INJECTIONS TWICE A DAY 2 DAYS PRIOR, 1 INJECTION THE AM THE DAY BEFORE THE PROCEDURE.PT HAS LOVENOX AT HOME. HOLD MULTI VITAMIN X 1 WEEK. WILL SCHEDULE AN EP STUDY, AFLUTTER ABLA. By signing my name below, ILatesha CMA,Finaibe, attest that this documentation has been prepared under the direction and in the presence of Dr. Margareth Nunez MD, FACC, FACP, RS. The provider reviewed the following test(s) and result(s) with the patient: ECG Chief Complaint New patient referred by Dr. Hoskins for possible ablation. Seen at [facility] 11/04/2021 Adult Risk Screening Initial Fall Risk Screening: ESSENCE has not fallen in the last 6 months. Tobacco Screening: ESSENCE does not use tobacco. Blood Pressure monitoring Blood Pressure Controlled, Systolic <130 mm Hg Blood Pressure Controlled, Diastolic < 80mm Hg History of Present Illness She is referred by Dr. Hoskins for evaluation for ablation of atrial flutter. She has remote history of NC , cardiogenic shock, PCI circumflex and iABP, with persistent severe LV dysfunction. She later occluded her cicumflex. Years later, she had HF and severe MR and underwent mitral valve repair at [facility]. She had recurrent VT and atrial arrhythmias, and underwent several ablations and repeat percutaneous MVR at [facility]. After her MVR and ablation in July,, [...] syncope, palpitat (more content not included)... Normal [place] Tobacco Screening.on 022 Fall risk assessment a) No falls within the last year [facility] DO Work Phone: Tobacco use status CPHS b) No [facility] DO Work Phone: Tobacco Screening. Yes [facility] [address] DO Work Phone: Prothrombin Time INRon 11-19 INR Coag (PPP) [Relative time] 1.59 {INR} [employer] Other Prothrombin Time INR [facility] [employer] Other Prothrombin Time INRon 11-11 INR Coag (PPP) [Relative time] 2.2 {INR} [employer] Other Prothrombin Time INR [facility] [employer] Other Prothrombin Time INRon 11-04 INR Coag (PPP) [Relative time] 1.1 {INR} [employer] Other Prothrombin Time INR [facility] [employer] Other Prothrombin Time INRon 10-29 INR Coag (PPP) [Relative time] 1.22 {INR} [employer] Other Prothrombin Time INR [employer] Other Prothrombin Time INRon 10-23 INR Coag (PPP) [Relative time] 1.29 {INR} [employer] Other Prothrombin Time INR [employer] Other Activated partial thrombopla stin time (aPTT) in platelet poor plasma by coagulation aon 10-13-2021 aPTT Coag (PPP) [Time] 31.8 s 25.1-36.5 [facility] Amphetamine Screen Ql (U)on 10-13-2021 Amphetamines Ql (U) Negative Negative [facility] Automated erythrocytes count in urine sediment (number/area)on 10-13-2021 RBC Auto (Urine sed) [#/Area] 1-2 [HPF] [facility] Automated leukocytes count i n urine sediment (number/area)on 10-13-2021 WBC Auto (Urine sed) [#/Area] 20-49 [HPF] [facility] Automated urine hyaline cast s count (number/volume)on 10-13-2021 Hyaline casts Auto (U) [#/Vol] None seen [LPF] [facility] Barbiturates [Presence] in U rineon 10-13-2021 Barbiturates Ql (U) Negative Negative [facility] Basophils Auto (Bld) [#/Vol] on 10-13-2021 Basophils (Bld) [#/Vol] 0.1 10*3/uL 0.0-0.2 [facility] Basophils/100 WBC Auto (Bld) on 10-13-2021 Basophils/100 WBC (Bld) 0.9 % [facility] Benzodiazepines [Presence] i n Urineon 10-13-2021 Benzodiazepines Ql (U) Negative Negative [facility] Bilirubin Test strip Ql (U)o n 10-13-2021 Bilirubin Ql (U) Negative Negative [facility] Blood anisocytosis detection on 10-13-2021 Anisocytosis Ql (Bld) Marked [facility] Blood hemoglobin measurement (mass/volume)on 10-13-2021 Hemoglobin (Bld) [Mass/Vol] 11.7 g/dL 11.8-15.4 [facility] Blood leukocytes automated c ount (number/volume)on 10-13-2021 WBC (Bld) [#/Vol] 11.4 10*3/uL 4.5-11.0 [facility] Blood polychromasia detectio n by light microscopyon 10-13-2021 Polychromasia LM Ql (Bld) Slight [facility] Body fluid albumin measureme nt (mass/volume)on 10-13-2021 Albumin (Body fld) [Mass/Vol] 3.0 g/dL 3.2-5.5 [facility] COVID-19 SOFIAon 10-13-2021 SARS-CoV+SARS-CoV-2 (COVID-19) Ag IA.rapid Ql (Resp) Negative Negative [facility] Comment on above: This is a duplicate Maranda SARS Antigen (CAIT) result to be used for statistical tracking purpose only. Cannabinoids [Presence] in U rine by Screen methodon 10-13-2021 Cannabinoids Screen Ql (U) Positive Negative [facility] Comment on above: These are unconfirme d results and should not be used for legal purposes. Drug Cut-Off Concentration: AMPH 1000 ng/mL ALESSANDRO 200 ng/mL RHINA 200 ng/mL COCM 300 ng/mL OP 300 ng/mL PCP 25 ng/mL THC 20 ng/mL Casts typing in urine sedime nt by light microscopyon 10-13-2021 Casts LM Nom (Urine sed) None seen [LPF] None Seen [facility] Color Auto (U)on 10-13-2021 Color (U) Yellow Yellow [facility] Creatine kinase [Enzymatic a ctivity/volume] in Serum or Plasmaon 10-13-2021 CK [Catalytic activity/Vol] 61 U/L 22-269 [facility] Creatinine and Glomerular fi ltration rate.predicted panel (S/P/Bld)on 10-13-2021 Creatinine [Mass/Vol] 3.62 mg/dL 0.44-1.03 [facility] Digoxin [Mass/volume] in Ser um or Plasmaon 10-13-2021 Digoxin [Mass/Vol] 8.7 ng/mL 0.9-2.0 [facility] Comment on above: Critical valueresult calledat 1837 on 10/13/21Last dose: - Eosinophils Auto (Bld) [#/Vo l]on 10-13-2021 Eosinophils (Bld) [#/Vol] 0.0 10*3/uL 0.0-0.45 [facility] Eosinophils/100 WBC Auto (Bl d)on 10-13-2021 Eosinophils/100 WBC (Bld) 0.0 % [facility] Erythrocyte distribution wid th Auto (RBC) [Ratio]on 10-13-2021 Erythrocyte distribution width (RBC) [Ratio] 23.1 % 11.9-15.3 [facility] Estimated glomerular filtrat ion rate (GFR) non- Americanon 10-13-2021 GFR/1.73 sq M.predicted among non-blacks MDRD (S/P/Bld) [Vol rate/Area] 13 mL/Min [facility] Globulin Calc (S) [Mass/Vol] on 10-13-2021 Globulin (S) [Mass/Vol] 3.2 g/dL [facility] Haptoglobin [Mass/volume] in Serum or Plasmaon 10-13-2021 Haptoglobin [Mass/Vol] 175 mg/dL 37-246 [facility] Hematocrit Auto (Bld) [Volum e fraction]on 10-13-2021 Hematocrit (Bld) [Volume fraction] 38.3 % 34.0-46.4 [facility] Hypochromia detectionon 09-30 Hypochromia Ql (Bld) Slight [facility] Ketones Auto test strip (U) [Mass/Vol]on 10-13-2021 Ketones (U) [Mass/Vol] Negative Negative [facility] Laboratory - Chemistry and C hemistry - challengeon 10-13-2021 Natriuretic peptide B (Bld) [Mass/Vol] 279.0 pg/mL 5-100 [facility] Laboratory - Coagulationon 0 2-14-2022 PT Coag (PPP) [Time] 23.0 s 9.0-12.9 [facility] Laboratory - Drug toxicology on 10-13-2021 Opiates Ql (U) Negative Negative [facility] Laboratory - Hematology and Cell countson 10-13-2021 Nucleated RBC/100 WBC (Bld) [Ratio] 0.1 % 0-0.5 [facility] Lactate dehydrogenase measur ement (enzymatic activity/volume)on 10-13-2021 LDH (Unsp spec) [Catalytic activity/Vol] 310 U/L 45-190 [facility] Lymphocytes Auto (Bld) [#/Vo l]on 10-13-2021 Lymphocytes (Bld) [#/Vol] 1.1 10*3/uL 1.00-4.8 [facility] Lymphocytes/100 WBC Auto (Bl d)on 10-13-2021 Lymphocytes/100 WBC (Bld) 9.5 % [facility] MCH Auto (RBC) [Entitic mass ]on 10-13-2021 MCH (RBC) [Entitic mass] 20.4 pg 24.7-34.3 [facility] MCHC Auto (RBC) [Mass/Vol]on 10-13-2021 MCHC (RBC) [Mass/Vol] 30.5 g/dL 32.0-35.0 [facility] MCV Auto (RBC) [Entitic vol] on 10-13-2021 MCV (RBC) [Entitic vol] 67.0 fL 80-100 [facility] Monocytes Auto (Bld) [#/Vol] on 10-13-2021 Monocytes (Bld) [#/Vol] 0.9 10*3/uL 0.0-0.8 [facility] Monocytes/100 WBC Auto (Bld) on 10-13-2021 Monocytes/100 WBC (Bld) 7.8 % [facility] Neutrophils Auto (Bld) [#/Vo l]on 10-13-2021 Neutrophils (Bld) [#/Vol] 9.3 10*3/uL 1.8-7.7 [facility] Neutrophils/100 WBC Auto (Bl d)on 10-13-2021 Neutrophils/100 WBC (Bld) 81.8 % [facility] Nitrite Test strip Ql (U)on 10-13-2021 Nitrite Ql (U) Negative Negative [facility] No Panel Informationon 10-13 Estimated GFR () 16 mL/Min [facility] Comment on above: GFR estimated refere nce range: According to KDOQI guidelines, <60 ml/min/1.73m2 is sufficient to diagnose a patient with chronic kidney disease. Microcytosis Moderate [facility] Pharmacy Creatinine Clearance (Chem 16.83 [facility] Platelet Estimate Decreased Normal [facility] Platelet Morphology Comment Normal Normal [facility] Schistocytes Slight [facility] Ovalocyte detectionon 2021 Ovalocytes LM Ql (Bld) Slight [facility] Phencyclidine Screen Ql (U)o n 10-13-2021 Phencyclidine Ql (U) Negative Negative [facility] Platelet mean volume Auto (B ld) [Entitic vol]on 10-13-2021 Platelet mean volume (Bld) [Entitic vol] 9.0 fL 6.3-10.7 [facility] Platelet poor plasma interna tional normalized ratio (INR) by coagulation assay (relaton 10-13-2021 INR Coag (PPP) [Relative time] 2.0 {INR} [facility] Comment on above: INR Therapeutic Rang e [...] 10-13-2021 Platelets (Bld) [#/Vol] 29 10*3/uL 150-450 [facility] Comment on above: Results calledat 151 0 on 10/13/21 Protein Auto test strip (U) [Mass/Vol]on 10-13-2021 Protein (U) [Mass/Vol] Negative Negative [facility] Protein [Mass/volume] in Ser um or Plasmaon 10-13-2021 Protein [Mass/Vol] 6.2 g/dL 6.1-7.9 [facility] RBC Auto (Bld) [#/Vol]on RBC (Bld) [#/Vol] 5.72 10*6/uL 3.60-5.00 [facility] RBC morphologyon 10-13-2021 RBC morphology finding Nom (Bld) N/A [facility] Serum or plasma alanine hernandez otransferase measurement without P-5'-P (enzymatic activion 10-13-2021 ALT No additional P-5'-P [Catalytic activity/Vol] 12 U/L 10-60 [facility] Serum or plasma albumin/glob ulin mass ratioon 10-13-2021 Albumin/Globulin [Mass ratio] 0.9 {ratio} [facility] Serum or plasma alkaline rosanna sphatase measurement (enzymatic activity/volume)on 10-13-2021 ALP [Catalytic activity/Vol] 147 U/L 32-92 [facility] Serum or plasma aspartate am inotransferase measurement (enzymatic activity/volume)on 10-13-2021 AST [Catalytic activity/Vol] 26 U/L 10-42 [facility] Serum or plasma calcium jackie urement (mass/volume)on 10-13-2021 Calcium [Mass/Vol] 8.2 mg/dL 8.2-10.2 [facility] Serum or plasma chloride jose antonio surement (moles/volume)on 10-13-2021 Chloride [Moles/Vol] 91 mmol/L 95-114 [facility] Serum or plasma creatine kin ase MB (CKMB)/total creatine kinase (CK) ratio by calculaon 10-13-2021 CK.MB Calc [Catalytic fraction] 17.3 % 0.00-2.50 [facility] Serum or plasma creatine kin ase MB measurement (mass/volume)on 10-13-2021 CK.MB [Mass/Vol] 10.6 ng/mL 0.6-6.3 [facility] Serum or plasma glucose jackie urement (mass/volume)on 10-13-2021 Glucose [Mass/Vol] 98 mg/dL 70-100 [facility] Comment on above: ADA recommended refe rence rangeRandom Glucose Reference Range is dependent on time and content of last meal. Glucose of more than 200 mg/dL in a nonstressed, ambulatory subject supports the diagnosis of Diabetes Mellitus. Serum or plasma potassium me asurement (moles/volume)on 10-13-2021 Potassium [Moles/Vol] 3.3 mmol/L 3.5-5.1 [facility] Serum or plasma sodium measu rement (moles/volume)on 10-13-2021 Sodium [Moles/Vol] 130 mmol/L 136-146 [facility] Serum or plasma total biliru bin measurement (mass/volume)on 10-13-2021 Bilirubin [Mass/Vol] 0.6 mg/dL 0.3-1.2 [facility] Serum or plasma total carbon dioxide measurement (moles/volume)on 10-13-2021 CO2 [Moles/Vol] 23.0 mmol/L 22.0-30.0 [facility] Serum or plasma urea nitroge n measurement (mass/volume)on 10-13-2021 Urea nitrogen [Mass/Vol] 51 mg/dL 9-23 [facility] Specific gravity Auto test s trip (U) [Rel density]on 10-13-2021 Specific gravity (U) [Rel density] 1.007 1.001-1.03 0 [facility] Squamous epithelial cells de tection in urine sediment by light microscopyon 10-13-2021 Epithelial cells.squamous LM Ql (Urine sed) 10-19 [HPF] [facility] Teardrop cell detectionon Dacrocytes LM Ql (Bld) Slight [facility] Trichomonas vaginalis detect ion in urine sediment by light microscopyon 10-13-2021 T. vaginalis LM Ql (Urine sed) 3-4 [HPF] None Seen [facility] Troponin I.cardiac [Mass/vol ume] in Serum or Plasma by High sensitivity methodon 10-13-2021 Troponin I.cardiac High sensitivity method [Mass/Vol] 139 pg/mL 0-15 [facility] Comment on above: Critical valueresult calledat 1909 on 10/13/21 Urine bacteria detection by automated methodon 10-13-2021 Bacteria Auto Ql (U) None seen None Seen [facility] Urine clarity by refractomet ry automatedon 10-13-2021 Clarity Refractometry automated (U) Cloudy Clear [facility] Urine cocaine detectionon Cocaine Ql (U) Negative Negative [facility] Urine glucose measurement by automated test strip (mass/volume)on 10-13-2021 Glucose Auto test strip (U) [Mass/Vol] Normal mg/dL Normal [facility] Urine hemoglobin detection b y automated test stripon 10-13-2021 Hemoglobin Auto test strip Ql (U) Trace Negative [facility] Urine lactic acid measuremen ton 10-13-2021 Lactate (U) [Moles/Vol] 1.5 mmol/L [facility] Urine leukocyte esterase det ection by automated test stripon 10-13-2021 Leukocyte esterase Auto test strip Ql (U) 3+ Negative [facility] Urobilinogen Auto test strip (U) [Mass/Vol]on 10-13-2021 Urobilinogen (U) [Mass/Vol] Normal mg/dL Normal [facility] pH Auto test strip (U)on pH (U) 5.5 [pH] 5.0-9.0 [facility] Prothrombin Time INRon 09-04 Prothrombin Time INR 1.0 [facility] [employer] Other Prothrombin Time INRon 07-17 INR Coag (PPP) [Relative time] 2.0 {INR} [employer] Other Pro[facility]rombin [facility]R [facility] [employer] Other Prothrombin Time INRon 06-30 INR Coag (PPP) [Relative time] 4.4 {INR} [employer] Other Prothrombin Time INR [facility] [employer] Other Prothrombin Time INRon 06-09 INR Coag (PPP) [Relative time] 4.9 {INR} [employer] Other Prothrombin Time INR [facility] [employer] Other Laboratory - Coagulationon 0 4-26-2021 PT Coag (PPP) [Time] 314.1 s 9.0-12.9 [facility] Comment on above: Results calledat 111 7 on 12/23/20 Platelet poor plasma interna tional normalized ratio (INR) by coagulation assay (relaton 12-23-2020 INR Coag (PPP) [Relative time] 27.1 {INR} [facility] Comment on above: Results calledat 111 [...] 11-25-2020 Basophils (Bld) [#/Vol] 0.1 10*3/uL 0.0-0.2 [facility] Basophils/100 WBC Auto (Bld) on 11-25-2020 Basophils/100 WBC (Bld) 1.7 % [facility] Blood anisocytosis detection on 11-25-2020 Anisocytosis Ql (Bld) Marked [facility] Blood hemoglobin measurement (mass/volume)on 11-25-2020 Hemoglobin (Bld) [Mass/Vol] 8.3 g/dL 11.8-15.4 [facility] Blood leukocytes automated c ount (number/volume)on 11-25-2020 WBC (Bld) [#/Vol] 8.5 10*3/uL 4.5-11.0 [facility] Blood polychromasia detectio n by light microscopyon 11-25-2020 Polychromasia LM Ql (Bld) Moderate [facility] Creatinine and Glomerular fi ltration rate.predicted panel (S/P/Bld)on 11-25-2020 Creatinine [Mass/Vol] 0.79 mg/dL 0.44-1.03 [facility] Eosinophils Auto (Bld) [#/Vo l]on 11-25-2020 Eosinophils (Bld) [#/Vol] 0.3 10*3/uL 0.0-0.45 [facility] Eosinophils/100 WBC Auto (Bl d)on 11-25-2020 Eosinophils/100 WBC (Bld) 3.3 % [facility] Erythrocyte distribution wid th Auto (RBC) [Ratio]on 11-25-2020 Erythrocyte distribution width (RBC) [Ratio] 21.0 % 11.9-15.3 [facility] GFR/1.73 sq M.predicted emily g non-blacks MDRD (S/P/Bld) [Vol rate/Area]on 11-25-2020 GFR/1.73 sq M predicted among non-blacks MDRD (S/P/Bld) [Vol rate/Area] > 60 mL/Min [facility] HCG ( test) IA.rapi d Ql (U)on 11-25-2020 HCG ( test) Ql (U) Negative [facility] Hematocrit Auto (Bld) [Volum e fraction]on 11-25-2020 Hematocrit (Bld) [Volume fraction] 26.3 % 34.0-46.4 [facility] Hematologyon 11-25-2020 PT Coag (PPP) [Time] 13.6 s 9.0-12.9 [facility] Platelets (Bld) [#/Vol] Normal Normal [facility] Hypochromia detectionon 10-29 Hypochromia Ql (Bld) Moderate [facility] Lymphocytes Auto (Bld) [#/Vo l]on 11-25-2020 Lymphocytes (Bld) [#/Vol] 1.9 10*3/uL 1.00-4.8 [facility] Lymphocytes/100 WBC Auto (Bl d)on 11-25-2020 Lymphocytes/100 WBC (Bld) 22.6 % [facility] MCH Auto (RBC) [Entitic mass ]on 11-25-2020 MCH (RBC) [Entitic mass] 21.5 pg 24.7-34.3 [facility] MCHC Auto (RBC) [Mass/Vol]on 11-25-2020 MCHC (RBC) [Mass/Vol] 31.5 g/dL 32.0-35.0 [facility] MCV Auto (RBC) [Entitic vol] on 11-25-2020 MCV (RBC) [Entitic vol] 68.2 fL 80-100 [facility] Monocytes Auto (Bld) [#/Vol] on 11-25-2020 Monocytes (Bld) [#/Vol] 0.8 10*3/uL 0.0-0.8 [facility] Monocytes/100 WBC Auto (Bld) on 11-25-2020 Monocytes/100 WBC (Bld) 8.8 % [facility] Neutrophils Auto (Bld) [#/Vo l]on 11-25-2020 Neutrophils (Bld) [#/Vol] 5.4 10*3/uL 1.8-7.7 [facility] Neutrophils/100 WBC Auto (Bl d)on 11-25-2020 Neutrophils/100 WBC (Bld) 63.6 % [facility] No Panel Informationon 11-25 Estimated GFR () > 60 mL/Min [facility] Comment on above: GFR estimated refere nce range: According to KDOQI guidelines, <60 ml/min/1.73m2 is sufficient to diagnose a patient with chronic kidney disease. Platelet Estimate Normal Normal [facility] Otheron 11-25-2020 GFR/1.73 sq M.predicted MDRD (S/P/Bld) [Vol rate/Area] > 60 mL/Min [facility] Comment on above: GFR estimated refere nce range: According to KDOQI guidelines, <60 ml/min/1.73m2 is sufficient to diagnose a patient with chronic kidney disease. Microcytosis Moderate [facility] Nucleated RBC/100 WBC (Bld) [Ratio] 0.2 % 0-0.5 [facility] Pharmacy Creatinine Clearance (Chem 84.61 [facility] Platelet Morphology Comment Normal Normal [facility] Poikilocytosis Slight [facility] Schistocytes Slight [facility] Ovalocyte detectionon 2020 Ovalocytes LM Ql (Bld) Slight [facility] Platelet mean volume Auto (B ld) [Entitic vol]on 11-25-2020 Platelet mean volume (Bld) [Entitic vol] 8.8 fL 6.3-10.7 [facility] Platelet poor plasma interna tional normalized ratio (INR) by coagulation assay (relaton 11-25-2020 INR Coag (PPP) [Relative time] 1.2 {INR} [facility] Comment on above: INR Therapeutic Rang e [...] 11-25-2020 Platelets (Bld) [#/Vol] 318 10*3/uL 150-450 [facility] RBC Auto (Bld) [#/Vol]on RBC (Bld) [#/Vol] 3.85 10*6/uL 3.60-5.00 [facility] RBC morphologyon 11-25-2020 RBC morphology finding Nom (Bld) N/A [facility] Serum or plasma calcium jackie urement (mass/volume)on 11-25-2020 Calcium [Mass/Vol] 8.6 mg/dL 8.2-10.2 [facility] Serum or plasma chloride jose antonio surement (moles/volume)on 11-25-2020 Chloride [Moles/Vol] 102 mmol/L 95-114 [facility] Serum or plasma glucose jackie urement (mass/volume)on 11-25-2020 Glucose [Mass/Vol] 87 mg/dL 70-100 [facility] Comment on above: ADA recommended refe rence rangeRandom Glucose Reference Range is dependent on time and content of last meal. Glucose of more than 200 mg/dL in a nonstressed, ambulatory subject supports the diagnosis of Diabetes Mellitus. Serum or plasma potassium me asurement (moles/volume)on 11-25-2020 Potassium [Moles/Vol] 3.9 mmol/L 3.5-5.1 [facility] Serum or plasma sodium measu rement (moles/volume)on 11-25-2020 Sodium [Moles/Vol] 135 mmol/L 136-146 [facility] Serum or plasma total carbon dioxide measurement (moles/volume)on 11-25-2020 CO2 [Moles/Vol] 22.7 mmol/L 22.0-30.0 [facility] Serum or plasma urea nitroge n measurement (mass/volume)on 11-25-2020 Urea nitrogen [Mass/Vol] 8 mg/dL 9-23 [facility] Target cellson 11-25-2020 Target cells LM Ql (Bld) Slight [facility] Urine human chorionic gonado tropin (hCG) detection by immunoassayon 11-25-2020 HCG ( test) Ql (U) Negative [facility] Creatine kinase [Enzymatic a ctivity/volume] in Serum or Plasmaon 11-24-2020 CK [Catalytic activity/Vol] 54 U/L 22-269 [facility] Otheron 11-24-2020 CBC Comment See comment [facility] Comment on above: There is significant microcytosis which suggests the possibility of iron deficiency. Consider serum ferritin and iron studies. Serum or plasma cardiac trop onin I measurement (mass/volume)on 11-24-2020 Troponin I.cardiac [Mass/Vol] ng/mL 0-0.02 [facility] Comment on above: ELLA [place] Cut off value > or equal to 0.03 ng/mL in conjunction with clinical conditions of myocardial infarction.([email or web address]) Troponin I.cardiac [Mass/Vol] ng/mL 0-0.02 [facility] Comment on above: ELLA [place] Cut off value > or equal to 0.03 ng/mL in conjunction with clinical conditions of myocardial infarction.([email or web address]) Serum or plasma creatine kin ase MB (CKMB)/total creatine kinase (CK) ratio by calculaon 11-24-2020 CK.MB Calc [Catalytic fraction] 3.8 % 0.00-2.50 [facility] Serum or plasma creatine kin ase MB measurement (mass/volume)on 11-24-2020 CK.MB [Mass/Vol] 2.1 ng/mL 0.6-6.3 [facility] Teardrop cell detectionon Dacrocytes LM Ql (Bld) Rare Fi [facility] Activated partial thrombopla stin time (aPTT) in platelet poor plasma by coagulation aon 11-23-2020 aPTT Coag (PPP) [Time] 92.8 s 25.1-36.5 [facility] Comment on above: Critical valueresult calledat 1511 on 11/23/20 Automated basophil %on 11-23 Basophils/100 WBC (Bld) 1.1 % [facility] Automated basophil counton 0 11-23-2020 Basophils (Bld) [#/Vol] 0.2 10*3/uL 0.0-0.2 [facility] Automated blood lymphocyte c ount (number/volume)on 11-23-2020 Lymphocytes (Bld) [#/Vol] 1.5 10*3/uL 1.00-4.8 [facility] Automated blood lymphocyte c ount as percentage of total leukocyteson 11-23-2020 Lymphocytes/100 WBC (Bld) 10.4 % [facility] Automated blood monocyte cou nton 11-23-2020 Monocytes (Bld) [#/Vol] 1.5 10*3/uL 0.0-0.8 [facility] Automated blood platelet cou nt (count/volume)on 11-23-2020 Platelets (Bld) [#/Vol] 327 10*3/uL 150-450 [facility] Automated blood platelet jose antonio n volume measurementon 11-23-2020 Platelet mean volume (Bld) [Entitic vol] 8.1 fL 6.3-10.7 [facility] Automated eosinophil %on Eosinophils/100 WBC (Bld) 1.5 % [facility] Automated eosinophil counton 11-23-2020 Eosinophils (Bld) [#/Vol] 0.2 10*3/uL 0.0-0.45 [facility] Automated erythrocyte distri bution width ratioon 11-23-2020 Erythrocyte distribution width (RBC) [Ratio] 21.1 % 11.9-15.3 [facility] Automated erythrocyte mean c orpuscular hemoglobin (mass per erythrocyte)on 11-23-2020 MCH (RBC) [Entitic mass] 21.2 pg 24.7-34.3 [facility] Automated erythrocyte mean c orpuscular hemoglobin concentration measurement (mass/volon 11-23-2020 MCHC (RBC) [Mass/Vol] 31.0 g/dL 32.0-35.0 [facility] Automated erythrocyte mean c orpuscular volumeon 11-23-2020 MCV (RBC) [Entitic vol] 68.4 fL 80-100 [facility] Automated erythrocytes count in urine sediment (number/area)on 11-23-2020 RBC Auto (Urine sed) [#/Area] 20-49 [HPF] [facility] Automated leukocytes count i n urine sediment (number/area)on 11-23-2020 WBC Auto (Urine sed) [#/Area] 50-100 [HPF] [facility] Automated monocyte %on 11-23 Monocytes/100 WBC (Bld) 9.8 % [facility] Automated neutrophil %on Neutrophils/100 WBC (Bld) 77.2 % [facility] Bilirubin Test strip Ql (U)o n 11-23-2020 Bilirubin Ql (U) Negative Negative [facility] Blood anisocytosis detection on 11-23-2020 Anisocytosis Ql (Bld) Moderate [facility] Blood erythrocytes automated count (number/volume)on 11-23-2020 RBC (Bld) [#/Vol] 3.91 10*6/uL 3.60-5.00 [facility] Blood hemoglobin measurement (mass/volume)on 11-23-2020 Hemoglobin (Bld) [Mass/Vol] 8.3 g/dL 11.8-15.4 [facility] Blood leukocytes automated c ount (number/volume)on 11-23-2020 WBC (Bld) [#/Vol] 14.9 10*3/uL 4.5-11.0 [facility] Blood neutrophil count by au tomated method (number/volume)on 11-23-2020 Neutrophils (Bld) [#/Vol] 11.5 10*3/uL 1.8-7.7 [facility] Blood polychromasia detectio n by light microscopyon 11-23-2020 Polychromasia LM Ql (Bld) Slight [facility] COVID-19 Positive/Negativeon 11-23-2020 COVID-19 Positive/Negative Negative Negative [facility] Comment on above: Reference: NegativeT esting for SARS-CoV-2 by RT-PCRThis test was developed and its performance characteristics determined by [employer] ([employer]) and validated at the [facility]. This test has not been FDA cleared [...] N gene ADITI+probe Ql (Resp) Negative Negative [facility] Comment on above: Reference: NegativeT esting for SARS-CoV-2 by RT-PCRThis test was developed and its performance characteristics determined by [employer] ([employer]) and validated at the [facility]. This test has not been FDA cleared [...] COVID-19 SOFIAon 11-23-2020 COVID-19 MARANDA Negative Negative [facility] Comment on above: This is a duplicate Maranda SARS Antigen (CAIT) result to be used for statistical tracking purpose only. SARS-CoV+SARS-CoV-2 (COVID-19) Ag IA.rapid Ql (Resp) Negative Negative [facility] Comment on above: This is a duplicate Maranda SARS Antigen (CAIT) result to be used for statistical tracking purpose only. CT biopsyon 11-23-2020 Transferrin [Mass/Vol] 321 mg/dL 180-380 [facility]2020 Natriuretic peptide B (Bld) [Mass/Vol] 859.0 pg/mL 5-100 [facility] Color Auto (U)on 11-23-2020 Color (U) Yellow Yellow [facility] Creatine kinase [Enzymatic a ctivity/volume] in Serum or Plasmaon 11-23-2020 CK [Catalytic activity/Vol] 66 U/L 22-269 [facility] Estimated glomerular filtrat ion rate (GFR) non- Americanon 11-23-2020 GFR/1.73 sq M predicted among non-blacks MDRD (S/P/Bld) [Vol rate/Area] > 60 mL/Min [facility] Ferritin [Mass/volume] in Se rum or Plasmaon 11-23-2020 Ferritin [Mass/Vol] 39.9 ng/mL 11-306.8 [facility] Folate [Mass/volume] in Seru m or Plasmaon 11-23-2020 Folate [Mass/Vol] ng/mL >5.9 [facility] Comment on above: Folate reference ran ge: >5.9 ng/mlThe WHO technical consultation on folate and vitamin [id number] has determined that folate concentrations lessthan 4 ng/ml are considered deficient. Folate [Mass/Vol] ng/mL >5.9 [facility] Comment on above: Folate reference ran ge: >5.9 ng/mlThe WHO technical consultation on folate and vitamin [id number] has determined that folate concentrations lessthan 4 ng/ml are considered deficient. Hematocrit [Volume Fraction] of Blood by Automated counton 11-23-2020 Hematocrit (Bld) [Volume fraction] 26.7 % 34.0-46.4 [facility] Hematologyon 11-23-2020 Platelets (Bld) [#/Vol] Normal Normal [facility] PT Coag (PPP) [Time] 189.6 s 9.0-12.9 [facility] Hypochromia detectionon 10-29 Hypochromia Ql (Bld) Moderate [facility] Iron [Mass/volume] in Serum or Plasmaon 11-23-2020 Iron [Mass/Vol] 19 ug/dL 40-150 [facility] Iron binding capacity [Mass/ volume] in Serum or Plasmaon 11-23-2020 Iron binding capacity [Mass/Vol] 449 ug/dL 255-450 [facility] Iron saturation [Mass Fracti on] in Serum or Plasmaon 11-23-2020 Iron saturation [Mass fraction] 4.0 % 20-50 [facility] Ketones Auto test strip (U) [Mass/Vol]on 11-23-2020 Ketones (U) [Mass/Vol] Negative Negative [facility] - Microbiology an d Antimicrobial susceptibilityon 11-23-2020 SARS-CoV-2 (COVID-19) RNA ADITI+probe Ql (Unsp spec) N/A [facility] Metabolic Panelon 11-23-2020 Magnesium [Mass/Vol] 1.8 mg/dL 1.6-2.6 [facility] Nitrite Test strip Ql (U)on 11-23-2020 Nitrite Ql (U) Positive Negative [facility] Otheron 11-23-2020 Absolute Reticulocyte Count 0.104 10*6/uL 0.024-0.08 4 [facility] Cobalamin (Vitamin B12) [Mass/Vol] 275 pg/mL 180-914 [facility] Percent Reticulocyte Count 2.6 % 0.5-1.5 [facility] Coronavirus 2019 PCR Interp N/A [facility] SARS Antigen (LFIA) [facility] Crenated Cell Slight [facility] GFR/1.73 sq M.predicted MDRD (S/P/Bld) [Vol rate/Area] > 60 mL/Min [facility] Comment on above: GFR estimated refere nce range: According to KDOQI guidelines, <60 ml/min/1.73m2 is sufficient to diagnose a patient with chronic kidney disease. Microcytosis Moderate [facility] Nucleated RBC/100 WBC (Bld) [Ratio] 0.1 % 0-0.5 [facility] Pharmacy Creatinine Clearance (Chem 74.80 [facility] Platelet Morphology Comment Normal Normal [facility] Poikilocytosis Slight [facility] Schistocytes Rare [facility] Ovalocyte detectionon 2020 Ovalocytes LM Ql (Bld) Slight [facility] Platelet poor plasma interna tional normalized ratio (INR) by coagulation assay (relaton 11-23-2020 INR Coag (PPP) [Relative time] 16.6 {INR} [facility] Comment on above: Critical valueresult calledat [...] 11-23-2020 Protein (U) [Mass/Vol] Negative Negative Fi [facility] RBC morphologyon 11-23-2020 RBC morphology finding Nom (Bld) N/A [facility] Serum or plasma calcium jackie urement (mass/volume)on 11-23-2020 Calcium [Mass/Vol] 8.4 mg/dL 8.2-10.2 [facility] Serum or plasma cardiac trop onin I measurement (mass/volume)on 11-23-2020 Troponin I.cardiac [Mass/Vol] ng/mL 0-0.02 [facility] Comment on above: ELLA [place] Cut off value > or equal to 0.03 ng/mL in conjunction with clinical conditions of myocardial infarction.([email or web address]) Serum or plasma chloride jose antonio surement (moles/volume)on 11-23-2020 Chloride [Moles/Vol] 104 mmol/L 95-114 [facility] Serum or plasma creatine kin ase MB (CKMB)/total creatine kinase (CK) ratio by calculaon 11-23-2020 CK.MB Calc [Catalytic fraction] 2.8 % 0.00-2.50 [facility] Serum or plasma creatine kin ase MB measurement (mass/volume)on 11-23-2020 CK.MB [Mass/Vol] 1.9 ng/mL 0.6-6.3 [facility] Serum or plasma creatinine m easurement with calculation of estimated glomerular filtron 11-23-2020 Creatinine [Mass/Vol] 0.83 mg/dL 0.44-1.03 [facility] Serum or plasma glucose jackie urement (mass/volume)on 11-23-2020 Glucose [Mass/Vol] 126 mg/dL 70-100 [facility] Comment on above: ADA recommended refe rence rangeRandom Glucose Reference Range is dependent on time and content of last meal. Glucose of more than 200 mg/dL in a nonstressed, ambulatory subject supports the diagnosis of Diabetes Mellitus. Serum or plasma potassium me asurement (moles/volume)on 11-23-2020 Potassium [Moles/Vol] 3.8 mmol/L 3.5-5.1 [facility] Serum or plasma sodium measu rement (moles/volume)on 11-23-2020 Sodium [Moles/Vol] 135 mmol/L 136-146 [facility] Serum or plasma total carbon dioxide measurement (moles/volume)on 11-23-2020 CO2 [Moles/Vol] 22.0 mmol/L 22.0-30.0 [facility] Serum or plasma urea nitroge n measurement (mass/volume)on 11-23-2020 Urea nitrogen [Mass/Vol] 9 mg/dL 05-22 [facility] Specific gravity Auto test s trip (U) [Rel density]on 11-23-2020 Specific gravity (U) [Rel density] 1.007 1.001-1.03 0 [facility] Squamous epithelial cells de tection in urine sediment by light microscopyon 11-23-2020 Epithelial cells.squamous LM Ql (Urine sed) 3-4 [HPF] [facility] Target cellson 11-23-2020 Target cells LM Ql (Bld) Slight [facility] Teardrop cell detectionon Dacrocytes LM Ql (Bld) Rare [facility] Urinalysison 11-23-2020 Hyaline casts LM Ql (Urine sed) 0-8 [LPF] [facility] Urine bacteria detection by automated methodon 11-23-2020 Bacteria Auto Ql (U) 4+ None Seen [facility] Urine clarity by refractomet ry automatedon 11-23-2020 Clarity Refractometry automated (U) Clear Clear [facility] Urine culture routineon 10-29 Bacteria identified Cx Nom (U) Escherichia coli [facility] Urine glucose measurement by automated test strip (mass/volume)on 11-23-2020 Glucose Auto test strip (U) [Mass/Vol] Normal mg/dL Normal [facility] Urine hemoglobin detection b y automated test stripon 11-23-2020 Hemoglobin Auto test strip Ql (U) 3+ Negative [facility] Urine ketones measurement by automated test strip (mass/volume)on 11-23-2020 Ketones (U) [Mass/Vol] Negative Negative [facility] Urine leukocyte esterase det ection by automated test stripon 11-23-2020 Leukocyte esterase Auto test strip Ql (U) 4+ Negative [facility] Urine nitrite detection by t est stripon 11-23-2020 Nitrite Ql (U) Positive Negative [facility] Urine protein measurement by automated test strip (mass/volume)on 11-23-2020 Protein (U) [Mass/Vol] Negative Negative [facility] Urine total bilirubin detect ion by test stripon 11-23-2020 Bilirubin Ql (U) Negative Negative [facility] Urobilinogen Auto test strip (U) [Mass/Vol]on 11-23-2020 Urobilinogen (U) [Mass/Vol] Normal mg/dL Normal [facility] pH Auto test strip (U)on pH (U) 6.5 [pH] 5.0-9.0 [facility] Activated partial thrombopla stin time (aPTT) in platelet poor plasma by coagulation aon 08-16-2020 aPTT Coag (PPP) [Time] 55.8 s 23.0-35.0 [facility] Automated basophil %on 08-16 Basophils/100 WBC (Bld) 0.9 % [facility] Automated basophil counton 1 10-17-2019 Basophils (Bld) [#/Vol] 0.1 10*3/uL 0.0-0.2 [facility] Automated blood lymphocyte c ount (number/volume)on 08-16-2020 Lymphocytes (Bld) [#/Vol] 1.6 10*3/uL 1.00-4.8 [facility] Automated blood lymphocyte c ount as percentage of total leukocyteson 08-16-2020 Lymphocytes/100 WBC (Bld) 17.3 % [facility] Automated blood monocyte cou nton 08-16-2020 Monocytes (Bld) [#/Vol] 0.7 10*3/uL 0.0-0.8 [facility] Automated blood platelet cou nt (count/volume)on 08-16-2020 Platelets (Bld) [#/Vol] 305 10*3/uL 150-450 [facility] Automated blood platelet jose antonio n volume measurementon 08-16-2020 Platelet mean volume (Bld) [Entitic vol] 9.1 fL 6.3-10.7 [facility] Automated eosinophil %on Eosinophils/100 WBC (Bld) 1.6 % [facility] Automated eosinophil counton 08-16-2020 Eosinophils (Bld) [#/Vol] 0.1 10*3/uL 0.0-0.45 [facility] Automated erythrocyte distri bution width ratioon 08-16-2020 Erythrocyte distribution width (RBC) [Ratio] 18.8 % 11.9-15.3 [facility] Automated erythrocyte mean c orpuscular hemoglobin (mass per erythrocyte)on 08-16-2020 MCH (RBC) [Entitic mass] 23.9 pg 24.7-34.3 [facility] Automated erythrocyte mean c orpuscular hemoglobin concentration measurement (mass/volon 08-16-2020 MCHC (RBC) [Mass/Vol] 31.1 g/dL 32.0-35.0 [facility] Automated erythrocyte mean c orpuscular volumeon 08-16-2020 MCV (RBC) [Entitic vol] 76.9 fL 80-100 [facility] Automated erythrocytes count in urine sediment (number/area)on 08-16-2020 RBC Auto (Urine sed) [#/Area] 10-19 [HPF] [facility] Automated leukocytes count i n urine sediment (number/area)on 08-16-2020 WBC Auto (Urine sed) [#/Area] Innumerable [HPF] [facility] Automated monocyte %on 08-16 Monocytes/100 WBC (Bld) 7.6 % [facility] Automated neutrophil %on Neutrophils/100 WBC (Bld) 72.6 % [facility] Automated urine color determ inationon 08-16-2020 Color (U) Yellow Yellow [facility] Automated urine hyaline cast s count (number/volume)on 08-16-2020 Hyaline casts Auto (U) [#/Vol] None seen [LPF] [facility] Blood erythrocytes automated count (number/volume)on 08-16-2020 RBC (Bld) [#/Vol] 4.45 10*6/uL 3.60-5.00 [facility] Blood hemoglobin measurement (mass/volume)on 08-16-2020 Hemoglobin (Bld) [Mass/Vol] 10.7 g/dL 11.8-15.4 [facility] Blood leukocytes automated c ount (number/volume)on 08-16-2020 WBC (Bld) [#/Vol] 9.1 10*3/uL 3.8-11.6 [facility] Blood neutrophil count by au tomated method (number/volume)on 08-16-2020 Neutrophils (Bld) [#/Vol] 6.6 10*3/uL 1.8-7.7 [facility] COVID-19 Detected/Not Detect edon 08-16-2020 COVID-19 Detected/Not Detected Not detected Not Detecte [facility] Comment on above: This is a duplicate test result based off of the RP2.1 COVID (EUA) test performed within the Microbiology department. [facility] 08-16-2020 Natriuretic peptide B (Bld) [Mass/Vol] 1123.0 pg/mL 5-100 [facility] Casts typing in urine sedime nt by light microscopyon 08-16-2020 Casts LM Nom (Urine sed) None seen [LPF] None Seen [facility] Creatine kinase [Enzymatic a ctivity/volume] in Serum or Plasmaon 08-16-2020 CK [Catalytic activity/Vol] 72 U/L 22-269 [facility] Estimated glomerular filtrat ion rate (GFR) non- Americanon 08-16-2020 GFR/1.73 sq M predicted among non-blacks MDRD (S/P/Bld) [Vol rate/Area] 56 mL/min/{1.73_m2} [facility] Hematocrit [Volume Fraction] of Blood by Automated counton 08-16-2020 Hematocrit (Bld) [Volume fraction] 34.2 % 34.0-46.4 [facility] Hematologyon 08-16-2020 PT Coag (PPP) [Time] 144.3 s 9.0-12.9 [facility] PT Coag (PPP) [Time] 132.6 s 9.0-12.9 [facility] Lactate dehydrogenase measur ement (enzymatic activity/volume)on 08-16-2020 LDH (Unsp spec) [Catalytic activity/Vol] 268 U/L 45-190 [facility] Metabolic Panelon 08-16-2020 Magnesium [Mass/Vol] 1.8 mg/dL 1.6-2.6 [facility] Otheron 08-16-2020 Respiratory Panel (PCR) [facility] D-Dimer Quantitative (PE/DVT) < 200 ng/mL 0-243 [facility] Comment on above: The reference range for [...] sq M.predicted MDRD (S/P/Bld) [Vol rate/Area] mL/min/{1.73_m2} [facility] Comment on above: GFR estimated refere nce range: According to KDOQI guidelines, <60 ml/min/1.73m2 is sufficient to diagnose a patient with chronic kidney disease. Nucleated RBC/100 WBC (Bld) [Ratio] 0.1 % 0-0.5 [facility] Creatinine Clearance (Chem 61.68 [facility] Platelet poor plasma interna tional normalized ratio (INR) by coagulation assay (relaton 08-16-2020 INR Coag (PPP) [Relative time] 12.6 {INR} [facility] Comment on above: Results calledat 000 7 [...] INR Coag (PPP) [Relative time] 11.6 {INR} [facility] Comment on above: Critical valueresult calledat 1717 [...] (mass/volume)on 08-16-2020 Calcium [Mass/Vol] 8.4 mg/dL 8.2-10.2 [facility] Serum or plasma cardiac trop onin I measurement (mass/volume)on 08-16-2020 Troponin I.cardiac [Mass/Vol] ng/mL 0-0.02 [facility] Comment on above: ELLA [place] Cut off value > or equal to 0.03 ng/mL in conjunction with clinical conditions of myocardial infarction.([email or web address]) Serum or plasma chloride jose antonio surement (moles/volume)on 08-16-2020 Chloride [Moles/Vol] 103 mmol/L 95-114 [facility] Serum or plasma creatine kin ase MB (CKMB)/total creatine kinase (CK) ratio by calculaon 08-16-2020 CK.MB Calc [Catalytic fraction] 3.7 0.00-2.50 [facility] Serum or plasma creatine kin ase MB measurement (mass/volume)on 08-16-2020 CK.MB [Mass/Vol] 2.7 ng/mL 0.6-6.3 [facility] Serum or plasma creatinine m easurement with calculation of estimated glomerular filtron 08-16-2020 Creatinine [Mass/Vol] 1.03 mg/dL 0.44-1.03 [facility] Serum or plasma glucose jackie urement (mass/volume)on 08-16-2020 Glucose [Mass/Vol] 120 mg/dL 70-100 [facility] Comment on above: ADA recommended refe rence rangeRandom Glucose Reference Range is dependent on time and content of last meal. Glucose of more than 200 mg/dL in a nonstressed, ambulatory subject supports the diagnosis of Diabetes Mellitus. Serum or plasma potassium me asurement (moles/volume)on 08-16-2020 Potassium [Moles/Vol] 4.3 mmol/L 3.5-5.1 [facility] Serum or plasma sodium measu rement (moles/volume)on 08-16-2020 Sodium [Moles/Vol] 140 mmol/L 136-146 [facility] Serum or plasma total carbon dioxide measurement (moles/volume)on 08-16-2020 CO2 [Moles/Vol] 25.2 mmol/L 22.0-30.0 [facility] Serum or plasma urea nitroge n measurement (mass/volume)on 08-16-2020 Urea nitrogen [Mass/Vol] 9 mg/dL 9- [facility] Specific gravity of Urine by Automated test stripon 08-16-2020 Specific gravity (U) [Rel density] 1.014 1.001-1.03 0 [facility] Squamous epithelial cells de tection in urine sediment by light microscopyon 08-16-2020 Epithelial cells.squamous LM Ql (Urine sed) 5-9 [HPF] [facility] Trichomonas vaginalis detect ion in urine sediment by light microscopyon 08-16-2020 T. vaginalis LM Ql (Urine sed) 3-4 [HPF] None Seen [facility] Urine bacteria detection by automated methodon 08-16-2020 Bacteria Auto Ql (U) None seen None Seen [facility] Urine clarity by refractomet ry automatedon 08-16-2020 Clarity Refractometry automated (U) Cloudy Clear [facility] Urine glucose measurement by automated test strip (mass/volume)on 08-16-2020 Glucose Auto test strip (U) [Mass/Vol] Normal mg/dL Normal [facility] Urine hemoglobin detection b y automated test stripon 08-16-2020 Hemoglobin Auto test strip Ql (U) 1+ Negative [facility] Urine ketones measurement by automated test strip (mass/volume)on 08-16-2020 Ketones (U) [Mass/Vol] Negative Negative [facility] Urine leukocyte esterase det ection by automated test stripon 08-16-2020 Leukocyte esterase Auto test strip Ql (U) 4+ Negative [facility] Urine nitrite detection by t est stripon 08-16-2020 Nitrite Ql (U) Negative Negative [facility] Urine pH measurement by auto mated test stripon 08-16-2020 pH (U) 6.5 [pH] 5.0-9.0 [facility] Urine protein measurement by automated test strip (mass/volume)on 08-16-2020 Protein (U) [Mass/Vol] Trace mg/dL Negative [facility] Urine total bilirubin detect ion by test stripon 08-16-2020 Bilirubin Ql (U) Negative Negative [facility] Urine urobilinogen measureme nt by automated test strip (mass/volume)on 08-16-2020 Urobilinogen (U) [Mass/Vol] Normal mg/dL Normal [facility] Activated partial thrombopla stin time (aPTT) in platelet poor plasma by coagulation aon 07-26-2020 aPTT Coag (PPP) [Time] 32.4 s 23.0-35.0 [facility] Automated basophil %on 07-26 Basophils/100 WBC (Bld) 1.5 % [facility] Automated basophil counton 1 09-25-2019 Basophils (Bld) [#/Vol] 0.1 10*3/uL 0.0-0.2 [facility] Automated blood lymphocyte c ount (number/volume)on 07-26-2020 Lymphocytes (Bld) [#/Vol] 1.9 10*3/uL 1.00-4.8 [facility] Automated blood lymphocyte c ount as percentage of total leukocyteson 07-26-2020 Lymphocytes/100 WBC (Bld) 24.7 % [facility] Automated blood monocyte cou nton 07-26-2020 Monocytes (Bld) [#/Vol] 0.8 10*3/uL 0.0-0.8 [facility] Automated blood platelet cou nt (count/volume)on 07-26-2020 Platelets (Bld) [#/Vol] 207 10*3/uL 150-450 [facility] Automated blood platelet jose antonio n volume measurementon 07-26-2020 Platelet mean volume (Bld) [Entitic vol] 9.5 fL 6.3-10.7 [facility] Automated eosinophil %on Eosinophils/100 WBC (Bld) 3.4 % [facility] Automated eosinophil counton 07-26-2020 Eosinophils (Bld) [#/Vol] 0.3 10*3/uL 0.0-0.45 [facility] Automated erythrocyte distri bution width ratioon 07-26-2020 Erythrocyte distribution width (RBC) [Ratio] 20.9 % 11.9-15.3 [facility] Automated erythrocyte mean c orpuscular hemoglobin (mass per erythrocyte)on 07-26-2020 MCH (RBC) [Entitic mass] 24.3 pg 24.7-34.3 [facility] Automated erythrocyte mean c orpuscular hemoglobin concentration measurement (mass/volon 07-26-2020 MCHC (RBC) [Mass/Vol] 31.3 g/dL 32.0-35.0 [facility] Automated erythrocyte mean c orpuscular volumeon 07-26-2020 MCV (RBC) [Entitic vol] 77.8 fL 80-100 [facility] Automated monocyte %on 07-26 Monocytes/100 WBC (Bld) 10.5 % [facility] Automated neutrophil %on Neutrophils/100 WBC (Bld) 59.9 % [facility] Blood anisocytosis detection on 07-26-2020 Anisocytosis Ql (Bld) Marked [facility] Blood erythrocytes automated count (number/volume)on 07-26-2020 RBC (Bld) [#/Vol] 4.84 10*6/uL 3.60-5.00 [facility] Blood hemoglobin measurement (mass/volume)on 07-26-2020 Hemoglobin (Bld) [Mass/Vol] 11.8 g/dL 11.8-15.4 [facility] Blood leukocytes automated c ount (number/volume)on 07-26-2020 WBC (Bld) [#/Vol] 7.8 10*3/uL 4.5-11.0 [facility] Blood neutrophil count by au tomated method (number/volume)on 07-26-2020 Neutrophils (Bld) [#/Vol] 4.7 10*3/uL 1.8-7.7 [facility] Body fluid albumin measureme nt (mass/volume)on 07-26-2020 Albumin (Body fld) [Mass/Vol] 3.5 g/dL 3.2-5.5 [facility] Creatine kinase [Enzymatic a ctivity/volume] in Serum or Plasmaon 07-26-2020 CK [Catalytic activity/Vol] 58 U/L 22-269 [facility] Estimated glomerular filtrat ion rate (GFR) non- Americanon 07-26-2020 GFR/1.73 sq M predicted among non-blacks MDRD (S/P/Bld) [Vol rate/Area] mL/min/{1.73_m2} [facility] Hematocrit [Volume Fraction] of Blood by Automated counton 07-26-2020 Hematocrit (Bld) [Volume fraction] 37.7 % 34.0-46.4 [facility] Hematologyon 07-26-2020 Platelets (Bld) [#/Vol] Normal Normal [facility] PT Coag (PPP) [Time] 16.1 s 9.0-12.9 [facility] Hypochromia detectionon 07-01 Hypochromia Ql (Bld) Slight [facility] Metabolic Panelon 07-26-2020 Magnesium [Mass/Vol] 1.7 mg/dL 1.6-2.6 [facility] Otheron 07-26-2020 GFR/1.73 sq M.predicted MDRD (S/P/Bld) [Vol rate/Area] mL/min/{1.73_m2} [facility] Comment on above: GFR estimated refere nce range: According to KDOQI guidelines, <60 ml/min/1.73m2 is sufficient to diagnose a patient with chronic kidney disease. Microcytosis Slight [facility] Nucleated RBC/100 WBC (Bld) [Ratio] 0.1 % 0-0.5 [facility] Creatinine Clearance (Chem 66.06 [facility] Platelet Morphology Comment Normal Normal [facility] Platelet poor plasma interna tional normalized ratio (INR) by coagulation assay (relaton 07-26-2020 INR Coag (PPP) [Relative time] 1.4 {INR} [facility] Comment on above: INR Therapeutic Rang e [...] Plasmaon 07-26-2020 Protein [Mass/Vol] 6.4 g/dL 6.1-7.9 [facility] RBC morphologyon 07-26-2020 RBC morphology finding Nom (Bld) N/A [facility] Serum globulin measurement b y calculation (mass/volume)on 07-26-2020 Globulin (S) [Mass/Vol] 2.9 g/dL [facility] Serum or plasma alanine hernandez otransferase measurement without P-5'-P (enzymatic activion 07-26-2020 ALT No additional P-5'-P [Catalytic activity/Vol] 21 U/L 10-60 [facility] Serum or plasma albumin/glob ulin mass ratioon 07-26-2020 Albumin/Globulin [Mass ratio] 1.2 {ratio} [facility] Serum or plasma alkaline rosanna sphatase measurement (enzymatic activity/volume)on 07-26-2020 ALP [Catalytic activity/Vol] 153 U/L 3292 [facility] Serum or plasma aspartate am inotransferase measurement (enzymatic activity/volume)on 07-26-2020 AST [Catalytic activity/Vol] 22 U/L 10 [facility] Serum or plasma calcium jackie urement (mass/volume)on 07-26-2020 Calcium [Mass/Vol] 8.7 mg/dL 8.2-10.2 [facility] Serum or plasma cardiac trop onin I measurement (mass/volume)on 07-26-2020 Troponin I.cardiac [Mass/Vol] ng/mL 0-0.02 [facility] Comment on above: ELLA [place] Cut off value > or equal to 0.03 ng/mL in conjunction with clinical conditions of myocardial infarction.([email or web address]) Serum or plasma chloride jose antonio surement (moles/volume)on 07-26-2020 Chloride [Moles/Vol] 106 mmol/L 95-114 [facility] Serum or plasma creatine kin ase MB (CKMB)/total creatine kinase (CK) ratio by calculaon 07-26-2020 CK.MB Calc [Catalytic fraction] 3.7 0.00-2.50 [facility] Serum or plasma creatine kin ase MB measurement (mass/volume)on 07-26-2020 CK.MB [Mass/Vol] 2.2 ng/mL 0.6-6.3 [facility] Serum or plasma creatinine m easurement with calculation of estimated glomerular filtron 07-26-2020 Creatinine [Mass/Vol] 0.96 mg/dL 0.44-1.03 [facility] Serum or plasma glucose jackie urement (mass/volume)on 07-26-2020 Glucose [Mass/Vol] 96 mg/dL 70-100 [facility] Comment on above: ADA recommended refe rence rangeRandom Glucose Reference Range is dependent on time and content of last meal. Glucose of more than 200 mg/dL in a nonstressed, ambulatory subject supports the diagnosis of Diabetes Mellitus. Serum or plasma potassium me asurement (moles/volume)on 07-26-2020 Potassium [Moles/Vol] 4.2 mmol/L 3.5-5.1 [facility] Serum or plasma sodium measu rement (moles/volume)on 07-26-2020 Sodium [Moles/Vol] 138 mmol/L 136-146 [facility] Serum or plasma total biliru bin measurement (mass/volume)on 07-26-2020 Bilirubin [Mass/Vol] 0.3 mg/dL 0.3-1.2 [facility] Serum or plasma total carbon dioxide measurement (moles/volume)on 07-26-2020 CO2 [Moles/Vol] 22.5 mmol/L 22.0-30.0 [facility] Serum or plasma urea nitroge n measurement (mass/volume)on 07-26-2020 Urea nitrogen [Mass/Vol] 14 mg/dL 05-22 [facility] Activated partial thrombopla stin time (aPTT) in platelet poor plasma by coagulation aon 07-22-2020 aPTT Coag (PPP) [Time] 36.7 s 23.0-35.0 [facility] Automated basophil %on 07-22 Basophils/100 WBC (Bld) 1.1 % [facility] Automated basophil counton 1 09-21-2019 Basophils (Bld) [#/Vol] 0.1 10*3/uL 0.0-0.2 [facility] Automated blood lymphocyte c ount (number/volume)on 07-22-2020 Lymphocytes (Bld) [#/Vol] 1.8 10*3/uL 1.00-4.8 [facility] Automated blood lymphocyte c ount as percentage of total leukocyteson 07-22-2020 Lymphocytes/100 WBC (Bld) 18.8 % [facility] Automated blood monocyte cou nton 07-22-2020 Monocytes (Bld) [#/Vol] 0.9 10*3/uL 0.0-0.8 [facility] Automated blood platelet cou nt (count/volume)on 07-22-2020 Platelets (Bld) [#/Vol] 201 10*3/uL 150-450 [facility] Automated blood platelet jose antonio n volume measurementon 07-22-2020 Platelet mean volume (Bld) [Entitic vol] 9.4 fL 6.3-10.7 [facility] Automated eosinophil %on Eosinophils/100 WBC (Bld) 2.1 % [facility] Automated eosinophil counton 07-22-2020 Eosinophils (Bld) [#/Vol] 0.2 10*3/uL 0.0-0.45 [facility] Automated erythrocyte distri bution width ratioon 07-22-2020 Erythrocyte distribution width (RBC) [Ratio] 20.7 % 11.9-15.3 [facility] Automated erythrocyte mean c orpuscular hemoglobin (mass per erythrocyte)on 07-22-2020 MCH (RBC) [Entitic mass] 24.0 pg 24.7-34.3 [facility] Automated erythrocyte mean c orpuscular hemoglobin concentration measurement (mass/volon 07-22-2020 MCHC (RBC) [Mass/Vol] 31.1 g/dL 32.0-35.0 [facility] Automated erythrocyte mean c orpuscular volumeon 07-22-2020 MCV (RBC) [Entitic vol] 77.1 fL 80-100 [facility] Automated monocyte %on 07-22 Monocytes/100 WBC (Bld) 9.4 % [facility] Automated neutrophil %on Neutrophils/100 WBC (Bld) 68.6 % [facility] Blood erythrocytes automated count (number/volume)on 07-22-2020 RBC (Bld) [#/Vol] 4.68 10*6/uL 3.60-5.00 [facility] Blood hemoglobin measurement (mass/volume)on 07-22-2020 Hemoglobin (Bld) [Mass/Vol] 11.2 g/dL 11.8-15.4 [facility] Blood leukocytes automated c ount (number/volume)on 07-22-2020 WBC (Bld) [#/Vol] 9.5 10*3/uL 4.5-11.0 [facility] Blood neutrophil count by au tomated method (number/volume)on 07-22-2020 Neutrophils (Bld) [#/Vol] 6.5 10*3/uL 1.8-7.7 [facility] Body fluid albumin measureme nt (mass/volume)on 07-22-2020 Albumin (Body fld) [Mass/Vol] 3.5 g/dL 3.2-5.5 [facility] COVID-19 SOFIAon 07-22-2020 COVID-19 MARANDA Negative Negative [facility] Comment on above: This is a duplicate test result based off of the Maranda SARS Antigen (CAIT) test performed within the Microbiology department. [facility] 07-22-2020 Natriuretic peptide B (Bld) [Mass/Vol] 508.0 pg/mL 5-100 [facility] Estimated glomerular filtrat ion rate (GFR) non- Americanon 07-22-2020 GFR/1.73 sq M predicted among non-blacks MDRD (S/P/Bld) [Vol rate/Area] 58 mL/min/{1.73_m2} [facility] Hematocrit [Volume Fraction] of Blood by Automated counton 07-22-2020 Hematocrit (Bld) [Volume fraction] 36.1 % 34.0-46.4 [facility] Hematologyon 07-22-2020 PT Coag (PPP) [Time] 33.6 s 9.0-12.9 [facility] Metabolic Panelon 07-22-2020 Magnesium [Mass/Vol] 1.9 mg/dL 1.6-2.6 [facility] Otheron 07-22-2020 SARS Antigen (LFIA) [facility] GFR/1.73 sq M.predicted MDRD (S/P/Bld) [Vol rate/Area] mL/min/{1.73_m2} [facility] Comment on above: GFR estimated refere nce range: According to KDOQI guidelines, <60 ml/min/1.73m2 is sufficient to diagnose a patient with chronic kidney disease. Nucleated RBC/100 WBC (Bld) [Ratio] 0.0 % 0-0.5 [facility] Creatinine Clearance (Chem 64.10 [facility] Platelet poor plasma interna tional normalized ratio (INR) by coagulation assay (relaton 07-22-2020 INR Coag (PPP) [Relative time] 3.0 {INR} [facility] Comment on above: INR Therapeutic Rang e [...] Plasmaon 07-22-2020 Protein [Mass/Vol] 6.3 g/dL 6.1-7.9 [facility] Serum globulin measurement b y calculation (mass/volume)on 07-22-2020 Globulin (S) [Mass/Vol] 2.8 g/dL [facility] Serum or plasma alanine hernandez otransferase measurement without P-5'-P (enzymatic activion 07-22-2020 ALT No additional P-5'-P [Catalytic activity/Vol] 32 U/L 10-60 [facility] Serum or plasma albumin/glob ulin mass ratioon 07-22-2020 Albumin/Globulin [Mass ratio] 1.3 {ratio} [facility] Serum or plasma alkaline rosanna sphatase measurement (enzymatic activity/volume)on 07-22-2020 ALP [Catalytic activity/Vol] 145 U/L 32-92 [facility] Serum or plasma aspartate am inotransferase measurement (enzymatic activity/volume)on 07-22-2020 AST [Catalytic activity/Vol] 34 U/L 10-42 [facility] Serum or plasma calcium jackie urement (mass/volume)on 07-22-2020 Calcium [Mass/Vol] 8.6 mg/dL 8.2-10.2 [facility] Serum or plasma cardiac trop onin I measurement (mass/volume)on 07-22-2020 Troponin I.cardiac [Mass/Vol] ng/mL 0-0.02 [facility] Comment on above: ELLA [place] Cut off value > or equal to 0.03 ng/mL in conjunction with clinical conditions of myocardial infarction.([email or web address]) Serum or plasma chloride jose antonio surement (moles/volume)on 07-22-2020 Chloride [Moles/Vol] 102 mmol/L 95-114 [facility] Serum or plasma creatinine m easurement with calculation of estimated glomerular filtron 07-22-2020 Creatinine [Mass/Vol] 1.01 mg/dL 0.44-1.03 [facility] Serum or plasma glucose jackie urement (mass/volume)on 07-22-2020 Glucose [Mass/Vol] 100 mg/dL 70-100 [facility] Comment on above: ADA recommended refe rence rangeRandom Glucose Reference Range is dependent on time and content of last meal. Glucose of more than 200 mg/dL in a nonstressed, ambulatory subject supports the diagnosis of Diabetes Mellitus. Serum or plasma potassium me asurement (moles/volume)on 07-22-2020 Potassium [Moles/Vol] 4.5 mmol/L 3.5-5.1 [facility] Serum or plasma sodium measu rement (moles/volume)on 07-22-2020 Sodium [Moles/Vol] 138 mmol/L 136-146 [facility] Serum or plasma total biliru bin measurement (mass/volume)on 07-22-2020 Bilirubin [Mass/Vol] 0.3 mg/dL 0.3-1.2 [facility] Serum or plasma total carbon dioxide measurement (moles/volume)on 07-22-2020 CO2 [Moles/Vol] 24.6 mmol/L 22.0-30.0 [facility] Serum or plasma urea nitroge n measurement (mass/volume)on 07-22-2020 Urea nitrogen [Mass/Vol] 15 mg/dL 05-22 [facility] Activated partial thrombopla stin time (aPTT) in platelet poor plasma by coagulation aon 07-19-2020 aPTT Coag (PPP) [Time] 41.0 s 23.0-35.0 [facility] Albumin [Mass/volume] in Ser um or Plasmaon 07-19-2020 Albumin [Mass/Vol] 3.9 g/dL 3.2-5.5 [facility] Automated basophil %on 07-19 Basophils/100 WBC (Bld) 1.7 % [facility] Automated basophil counton 1 09-18-2019 Basophils (Bld) [#/Vol] 0.1 10*3/uL 0.0-0.2 [facility] Automated blood lymphocyte c ount (number/volume)on 07-19-2020 Lymphocytes (Bld) [#/Vol] 2.9 10*3/uL 1.00-4.8 [facility] Automated blood lymphocyte c ount as percentage of total leukocyteson 07-19-2020 Lymphocytes/100 WBC (Bld) 34.7 % [facility] Automated blood monocyte cou nton 07-19-2020 Monocytes (Bld) [#/Vol] 0.9 10*3/uL 0.0-0.8 [facility] Automated blood platelet cou nt (count/volume)on 07-19-2020 Platelets (Bld) [#/Vol] 221 10*3/uL 150-450 [facility] Automated blood platelet jose antonio n volume measurementon 07-19-2020 Platelet mean volume (Bld) [Entitic vol] 9.4 fL 6.3-10.7 [facility] Automated eosinophil %on Eosinophils/100 WBC (Bld) 3.2 % [facility] Automated eosinophil counton 07-19-2020 Eosinophils (Bld) [#/Vol] 0.3 10*3/uL 0.0-0.45 [facility] Automated erythrocyte distri bution width ratioon 07-19-2020 Erythrocyte distribution width (RBC) [Ratio] 21.2 % 11.9-15.3 [facility] Automated erythrocyte mean c orpuscular hemoglobin (mass per erythrocyte)on 07-19-2020 MCH (RBC) [Entitic mass] 24.1 pg 24.7-34.3 [facility] Automated erythrocyte mean c orpuscular hemoglobin concentration measurement (mass/volon 07-19-2020 MCHC (RBC) [Mass/Vol] 31.0 g/dL 32.0-35.0 [facility] Automated erythrocyte mean c orpuscular volumeon 07-19-2020 MCV (RBC) [Entitic vol] 77.7 fL 80-100 [facility] Automated erythrocytes count in urine sediment (number/area)on 07-19-2020 RBC Auto (Urine sed) [#/Area] 10-19 [HPF] [facility] Automated leukocytes count i n urine sediment (number/area)on 07-19-2020 WBC Auto (Urine sed) [#/Area] Innumerable [HPF] [facility] Automated monocyte %on 07-19 Monocytes/100 WBC (Bld) 11.0 % [facility] Automated neutrophil %on Neutrophils/100 WBC (Bld) 49.4 % [facility] Automated urine color determ inationon 07-19-2020 Color (U) Yellow Yellow [facility] Blood anisocytosis detection on 07-19-2020 Anisocytosis Ql (Bld) [facility]ed [facility] Blood erythrocytes automated count (number/volume)on 07-19-2020 RBC (Bld) [#/Vol] 5.04 10*6/uL 3.60-5.00 [facility] Blood hemoglobin measurement (mass/volume)on 07-19-2020 Hemoglobin (Bld) [Mass/Vol] 12.1 g/dL 11.8-15.4 [facility] Blood leukocytes automated c ount (number/volume)on 07-19-2020 WBC (Bld) [#/Vol] 8.4 10*3/uL 4.5-11.0 [facility] Blood neutrophil count by au tomated method (number/volume)on 07-19-2020 Neutrophils (Bld) [#/Vol] 4.2 10*3/uL 1.8-7.7 [facility]acon 07-19-2020 Natriuretic peptide B (Bld) [Mass/Vol] 357.0 pg/mL 5-100 [facility] Creatine kinase [Enzymatic a ctivity/volume] in Serum or Plasmaon 07-19-2020 CK [Catalytic activity/Vol] 81 U/L 22-269 [facility] Estimated glomerular filtrat ion rate (GFR) non- Americanon 07-19-2020 GFR/1.73 sq M predicted among non-blacks MDRD (S/P/Bld) [Vol rate/Area] mL/min/{1.73_m2} [facility] Hematocrit [Volume Fraction] of Blood by Automated counton 07-19-2020 Hematocrit (Bld) [Volume fraction] 39.2 % 34.0-46.4 [facility] Hematologyon 07-19-2020 Platelets (Bld) [#/Vol] Normal Normal [facility] PT Coag (PPP) [Time] 51.9 s 9.0-12.9 [facility] Metabolic Panelon 07-19-2020 Magnesium [Mass/Vol] 2.1 mg/dL 1.6-2.6 [facility] Otheron 07-19-2020 Acanthocytes Slight [facility] GFR/1.73 sq M.predicted MDRD (S/P/Bld) [Vol rate/Area] mL/min/{1.73_m2} [facility] Comment on above: GFR estimated refere nce range: According to KDOQI guidelines, <60 ml/min/1.73m2 is sufficient to diagnose a patient with chronic kidney disease. Nucleated RBC/100 WBC (Bld) [Ratio] 0.1 % 0-0.5 [facility] Creatinine Clearance (Chem 67.89 [facility] Platelet Morphology Comment Normal Normal [facility] Poikilocytosis Slight [facility] Schistocytes Slight [facility] Ovalocyte detectionon 2019 Ovalocytes LM Ql (Bld) [facility] Platelet poor plasma interna tional normalized ratio (INR) by coagulation assay (relaton 07-19-2020 INR Coag (PPP) [Relative time] 4.6 {INR} [facility] Comment on above: INR Therapeutic Rang e [...] Plasmaon 07-19-2020 Protein [Mass/Vol] 7.1 g/dL 6.1-7.9 [facility] RBC morphologyon 07-19-2020 RBC morphology finding Nom (Bld) N/A [facility] Serum globulin measurement b y calculation (mass/volume)on 07-19-2020 Globulin (S) [Mass/Vol] 3.2 g/dL [facility] Serum or plasma alanine hernandez otransferase measurement without P-5'-P (enzymatic activion 07-19-2020 ALT No additional P-5'-P [Catalytic activity/Vol] 32 U/L 10-60 [facility] Serum or plasma albumin/glob ulin mass ratioon 07-19-2020 Albumin/Globulin [Mass ratio] 1.2 {ratio} [facility] Serum or plasma alkaline rosanna sphatase measurement (enzymatic activity/volume)on 07-19-2020 ALP [Catalytic activity/Vol] 152 U/L 32-92 [facility] Serum or plasma aspartate am inotransferase measurement (enzymatic activity/volume)on 07-19-2020 AST [Catalytic activity/Vol] 42 U/L 10 [facility] Serum or plasma calcium jackie urement (mass/volume)on 07-19-2020 Calcium [Mass/Vol] 9.0 mg/dL 8.2-10.2 [facility] Serum or plasma cardiac trop onin I measurement (mass/volume)on 07-19-2020 Troponin I.cardiac [Mass/Vol] ng/mL 0-0.02 [facility] Comment on above: ELLA [place] Cut off value > or equal to 0.03 ng/mL in conjunction with clinical conditions of myocardial infarction.([email or web address]) Serum or plasma chloride jose antonio surement (moles/volume)on 07-19-2020 Chloride [Moles/Vol] 104 mmol/L 95-114 [facility] Serum or plasma creatine kin ase MB (CKMB)/total creatine kinase (CK) ratio by calculaon 07-19-2020 CK.MB Calc [Catalytic fraction] 3.3 0.00-2.50 [facility] Serum or plasma creatine kin ase MB measurement (mass/volume)on 07-19-2020 CK.MB [Mass/Vol] 2.7 ng/mL 0.6-6.3 [facility] Serum or plasma creatinine m easurement with calculation of estimated glomerular filtron 07-19-2020 Creatinine [Mass/Vol] 0.94 mg/dL 0.44-1.03 [facility] Serum or plasma glucose jackie urement (mass/volume)on 07-19-2020 Glucose [Mass/Vol] 98 mg/dL 70-100 [facility] Comment on above: ADA recommended refe rence rangeRandom Glucose Reference Range is dependent on time and content of last meal. Glucose of more than 200 mg/dL in a nonstressed, ambulatory subject supports the diagnosis of Diabetes Mellitus. Serum or plasma potassium me asurement (moles/volume)on 07-19-2020 Potassium [Moles/Vol] 4.7 mmol/L 3.5-5.1 [facility] Serum or plasma sodium measu rement (moles/volume)on 07-19-2020 Sodium [Moles/Vol] 139 mmol/L 136-146 [facility] Serum or plasma total biliru bin measurement (mass/volume)on 07-19-2020 Bilirubin [Mass/Vol] 0.5 mg/dL 0.3-1.2 [facility] Serum or plasma total carbon dioxide measurement (moles/volume)on 07-19-2020 CO2 [Moles/Vol] 21.9 mmol/L 22.0-30.0 [facility] Serum or plasma urea nitroge n measurement (mass/volume)on 07-19-2020 Urea nitrogen [Mass/Vol] 17 mg/dL 05-22 [facility] Specific gravity of Urine by Automated test stripon 07-19-2020 Specific gravity (U) [Rel density] 1.015 1.001-1.03 0 [facility] Squamous epithelial cells de tection in urine sediment by light microscopyon 07-19-2020 Epithelial cells.squamous LM Ql (Urine sed) 0-1 [HPF] [facility] Urinalysison 07-19-2020 Hyaline casts LM Ql (Urine sed) 0-8 [LPF] [facility] Urine bacteria detection by automated methodon 07-19-2020 Bacteria Auto Ql (U) None seen None Seen [facility] Urine clarity by refractomet ry automatedon 07-19-2020 Clarity Refractometry automated (U) Clear Clear [facility] Urine culture routineon 07-01 Bacteria identified Cx Nom (U) 2 Days [facility] Urine glucose measurement by automated test strip (mass/volume)on 07-19-2020 Glucose Auto test strip (U) [Mass/Vol] Normal mg/dL Normal [facility] Urine hemoglobin detection b y automated test stripon 07-19-2020 Hemoglobin Auto test strip Ql (U) 1+ Negative [facility] Urine ketones measurement by automated test strip (mass/volume)on 07-19-2020 Ketones (U) [Mass/Vol] Negative Negative [facility] Urine leukocyte esterase det ection by automated test stripon 07-19-2020 Leukocyte esterase Auto test strip Ql (U) 4+ Negative [facility] Urine nitrite detection by t est stripon 07-19-2020 Nitrite Ql (U) Negative Negative [facility] Urine pH measurement by auto mated test stripon 07-19-2020 pH (U) 6.0 [pH] 5.0-9.0 [facility] Urine protein measurement by automated test strip (mass/volume)on 07-19-2020 Protein (U) [Mass/Vol] Negative Negative [facility] Urine total bilirubin detect ion by test stripon 07-19-2020 Bilirubin Ql (U) Negative Negative [facility] Urine urobilinogen measureme nt by automated test strip (mass/volume)on 07-19-2020 Urobilinogen (U) [Mass/Vol] Normal mg/dL Normal [facility] Activated partial thrombopla stin time (aPTT) in platelet poor plasma by coagulation aon 06-15-2020 aPTT Coag (PPP) [Time] 30.9 s 23.0-35.0 [facility] Automated basophil %on 06-15 Basophils/100 WBC (Bld) 1.0 % [facility] Automated basophil counton 1 Basophils (Bld) [#/Vol] 0.1 10*3/uL 0.0-0.2 [facility] Automated blood lymphocyte c ount (number/volume)on 06-15-2020 Lymphocytes (Bld) [#/Vol] 1.1 10*3/uL 1.00-4.8 [facility] Automated blood lymphocyte c ount as percentage of total leukocyteson 06-15-2020 Lymphocytes/100 WBC (Bld) 8.1 % [facility] Automated blood monocyte cou nton 06-15-2020 Monocytes (Bld) [#/Vol] 1.7 10*3/uL 0.0-0.8 [facility] Automated blood platelet cou nt (count/volume)on 06-15-2020 Platelets (Bld) [#/Vol] 170 10*3/uL 150-450 [facility] Automated blood platelet jose antonio n volume measurementon 06-15-2020 Platelet mean volume (Bld) [Entitic vol] 9.5 fL 6.3-10.7 [facility] Automated eosinophil %on Eosinophils/100 WBC (Bld) 0.1 % [facility] Automated eosinophil counton 06-15-2020 Eosinophils (Bld) [#/Vol] 0.0 10*3/uL 0.0-0.45 [facility] Automated erythrocyte distri bution width ratioon 06-15-2020 Erythrocyte distribution width (RBC) [Ratio] 26.0 % 11.9-15.3 [facility] Automated erythrocyte mean c orpuscular hemoglobin (mass per erythrocyte)on 06-15-2020 MCH (RBC) [Entitic mass] 23.8 pg 24.7-34.3 [facility] Automated erythrocyte mean c orpuscular hemoglobin concentration measurement (mass/volon 06-15-2020 MCHC (RBC) [Mass/Vol] 30.8 g/dL 32.0-35.0 [facility] Automated erythrocyte mean c orpuscular volumeon 06-15-2020 MCV (RBC) [Entitic vol] 77.4 fL 80-100 [facility] Automated monocyte %on 06-15 Monocytes/100 WBC (Bld) 12.7 % [facility] Automated neutrophil %on Neutrophils/100 WBC (Bld) 78.1 % [facility] Blood anisocytosis detection on 06-15-2020 Anisocytosis Ql (Bld) Moderate [facility] Blood erythrocytes automated count (number/volume)on 06-15-2020 RBC (Bld) [#/Vol] 4.75 10*6/uL 3.60-5.00 [facility] Blood hemoglobin measurement (mass/volume)on 06-15-2020 Hemoglobin (Bld) [Mass/Vol] 11.3 g/dL 11.8-15.4 [facility] Blood leukocytes automated c ount (number/volume)on 06-15-2020 WBC (Bld) [#/Vol] 13.3 10*3/uL 4.5-11.0 [facility] Blood neutrophil count by au tomated method (number/volume)on 06-15-2020 Neutrophils (Bld) [#/Vol] 10.4 10*3/uL 1.8-7.7 [facility] Body fluid albumin measureme nt (mass/volume)on 06-15-2020 Albumin (Body fld) [Mass/Vol] 3.0 g/dL 3.2-5.5 [facility] COVID-19 Detected/Not Detect edon 06-15-2020 COVID-19 Detected/Not Detected Not detected Not Detecte [facility] Comment on above: This is a duplicate test result based off of the RP2.1 COVID (EUA) test performed within the Microbiology department. [facility] 06-15-2020 Natriuretic peptide B (Bld) [Mass/Vol] 2832.0 pg/mL 5-100 [facility] Creatine kinase [Enzymatic a ctivity/volume] in Serum or Plasmaon 06-15-2020 CK [Catalytic activity/Vol] 125 U/L 22-269 [facility] Estimated glomerular filtrat ion rate (GFR) non- Americanon 06-15-2020 GFR/1.73 sq M predicted among non-blacks MDRD (S/P/Bld) [Vol rate/Area] 53 mL/min/{1.73_m2} [facility] Hematocrit [Volume Fraction] of Blood by Automated counton 06-15-2020 Hematocrit (Bld) [Volume fraction] 36.8 % 34.0-46.4 [facility] Hematologyon 06-15-2020 Platelets (Bld) [#/Vol] Normal Normal [facility] PT Coag (PPP) [Time] 51.7 s 9.0-12.9 [facility] Otheron 06-15-2020 Respiratory Panel (PCR) [facility] Crenated Cell Slight [facility] GFR/1.73 sq M.predicted MDRD (S/P/Bld) [Vol rate/Area] mL/min/{1.73_m2} [facility] Comment on above: GFR estimated refere nce range: According to KDOQI guidelines, <60 ml/min/1.73m2 is sufficient to diagnose a patient with chronic kidney disease. Microcytosis Moderate [facility] Nucleated RBC/100 WBC (Bld) [Ratio] 0.0 % 0-0.5 [facility] Creatinine Clearance (Chem 60.88 [facility] Platelet Morphology Comment Normal Normal [facility] Poikilocytosis Slight [facility] Schistocytes Slight [facility] Ovalocyte detectionon 2019 Ovalocytes LM Ql (Bld) [facility]light [facility] Platelet poor plasma interna tional normalized ratio (INR) by coagulation assay (relaton 06-15-2020 INR Coag (PPP) [Relative time] 4.6 {INR} [facility] Comment on above: INR Therapeutic Rang e [...] Plasmaon 06-15-2020 Protein [Mass/Vol] 5.9 g/dL 6.1-7.9 [facility] RBC morphologyon 06-15-2020 RBC morphology finding Nom (Bld) N/A [facility] Serum globulin measurement b y calculation (mass/volume)on 06-15-2020 Globulin (S) [Mass/Vol] 2.9 g/dL [facility] Serum or plasma alanine hernandez otransferase measurement without P-5'-P (enzymatic activion 06-15-2020 ALT No additional P-5'-P [Catalytic activity/Vol] 14 U/L 1060 [facility] Serum or plasma albumin/glob ulin mass ratioon 06-15-2020 Albumin/Globulin [Mass ratio] 1.0 {ratio} [facility] Serum or plasma alkaline rosanna sphatase measurement (enzymatic activity/volume)on 06-15-2020 ALP [Catalytic activity/Vol] 150 U/L 32-92 [facility] Serum or plasma aspartate am inotransferase measurement (enzymatic activity/volume)on 06-15-2020 AST [Catalytic activity/Vol] 28 U/L 10 [facility] Serum or plasma calcium jackie urement (mass/volume)on 06-15-2020 Calcium [Mass/Vol] 8.6 mg/dL 8.2-10.2 [facility] Serum or plasma cardiac trop onin I measurement (mass/volume)on 06-15-2020 Troponin I.cardiac [Mass/Vol] 0.03 ng/mL 0-0.02 [facility] Comment on above: [place] Cut off value > or equal to 0.03 ng/mL in conjunction with clinical conditions of myocardial infarction.([email or web address]) Serum or plasma chloride jose antonio surement (moles/volume)on 06-15-2020 Chloride [Moles/Vol] 109 mmol/L 95-114 [facility] Serum or plasma creatine kin ase MB (CKMB)/total creatine kinase (CK) ratio by calculaon 06-15-2020 CK.MB Calc [Catalytic fraction] 1.5 0.00-2.50 [facility] Serum or plasma creatine kin ase MB measurement (mass/volume)on 06-15-2020 CK.MB [Mass/Vol] 1.9 ng/mL 0.6-6.3 [facility] Serum or plasma creatinine m easurement with calculation of estimated glomerular filtron 06-15-2020 Creatinine [Mass/Vol] 1.09 mg/dL 0.44-1.03 [facility] Serum or plasma glucose jackie urement (mass/volume)on 06-15-2020 Glucose [Mass/Vol] 139 mg/dL 70-100 [facility] Comment on above: ADA recommended refe rence rangeRandom Glucose Reference Range is dependent on time and content of last meal. Glucose of more than 200 mg/dL in a nonstressed, ambulatory subject supports the diagnosis of Diabetes Mellitus. Serum or plasma potassium me asurement (moles/volume)on 06-15-2020 Potassium [Moles/Vol] 4.6 mmol/L 3.5-5.1 [facility] Serum or plasma sodium measu rement (moles/volume)on 06-15-2020 Sodium [Moles/Vol] 142 mmol/L 136-146 [facility] Serum or plasma total biliru bin measurement (mass/volume)on 06-15-2020 Bilirubin [Mass/Vol] 0.7 mg/dL 0.3-1.2 [facility] Serum or plasma total carbon dioxide measurement (moles/volume)on 06-15-2020 CO2 [Moles/Vol] 23.7 mmol/L 22.0-30.0 [facility] Serum or plasma urea nitroge n measurement (mass/volume)on 06-15-2020 Urea nitrogen [Mass/Vol] 6 mg/dL 05-22 [facility] Estimated glomerular filtrat ion rate (GFR) non- Americanon 06-07-2020 GFR/1.73 sq M predicted among non-blacks MDRD (S/P/Bld) [Vol rate/Area] mL/min/{1.73_m2} [facility] Otheron 06-07-2020 GFR/1.73 sq M.predicted MDRD (S/P/Bld) [Vol rate/Area] mL/min/{1.73_m2} [facility] Comment on above: GFR estimated refere nce range: According to KDOQI guidelines, <60 ml/min/1.73m2 is sufficient to diagnose a patient with chronic kidney disease. Pharmacy Creatinine Clearance (Chem 75.20 [facility] Serum or plasma calcium jackie urement (mass/volume)on 06-07-2020 Calcium [Mass/Vol] 8.2 mg/dL 8.2-10.2 [facility] Serum or plasma chloride jose antonio surement (moles/volume)on 06-07-2020 Chloride [Moles/Vol] 110 mmol/L 95-114 [facility] Serum or plasma creatinine m easurement with calculation of estimated glomerular filtron 06-07-2020 Creatinine [Mass/Vol] 0.90 mg/dL 0.44-1.03 [facility] Serum or plasma glucose jackie urement (mass/volume)on 06-07-2020 Glucose [Mass/Vol] 83 mg/dL 70-100 [facility] Comment on above: ADA recommended refe rence rangeRandom Glucose Reference Range is dependent on time and content of last meal. Glucose of more than 200 mg/dL in a nonstressed, ambulatory subject supports the diagnosis of Diabetes Mellitus. Serum or plasma potassium me asurement (moles/volume)on 06-07-2020 Potassium [Moles/Vol] 4.4 mmol/L 3.5-5.1 [facility] Serum or plasma sodium measu rement (moles/volume)on 06-07-2020 Sodium [Moles/Vol] 138 mmol/L 136-146 [facility] Serum or plasma total carbon dioxide measurement (moles/volume)on 06-07-2020 CO2 [Moles/Vol] 19.1 mmol/L 22.0-30.0 [facility] Serum or plasma urea nitroge n measurement (mass/volume)on 06-07-2020 Urea nitrogen [Mass/Vol] 5 mg/dL 05-22 [facility] Automated basophil %on 06-06 Basophils/100 WBC (Bld) 0.9 % [facility] Automated basophil counton 1 Basophils (Bld) [#/Vol] 0.1 10*3/uL 0.0-0.2 [facility] Automated blood lymphocyte c ount (number/volume)on 06-06-2020 Lymphocytes (Bld) [#/Vol] 1.8 10*3/uL 1.00-4.8 [facility] Automated blood lymphocyte c ount as percentage of total leukocyteson 06-06-2020 Lymphocytes/100 WBC (Bld) 25.4 % [facility] Automated blood monocyte cou nton 06-06-2020 Monocytes (Bld) [#/Vol] 0.8 10*3/uL 0.0-0.8 [facility] Automated blood platelet cou nt (count/volume)on 06-06-2020 Platelets (Bld) [#/Vol] 130 10*3/uL 150-450 [facility] Automated blood platelet jose antonio n volume measurementon 06-06-2020 Platelet mean volume (Bld) [Entitic vol] 9.7 fL 6.3-10.7 [facility] Automated eosinophil %on Eosinophils/100 WBC (Bld) 4.1 % [facility] Automated eosinophil counton 06-06-2020 Eosinophils (Bld) [#/Vol] 0.3 10*3/uL 0.0-0.45 [facility] Automated erythrocyte distri bution width ratioon 06-06-2020 Erythrocyte distribution width (RBC) [Ratio] 28.2 % 11.9-15.3 [facility] Automated erythrocyte mean c orpuscular hemoglobin (mass per erythrocyte)on 06-06-2020 MCH (RBC) [Entitic mass] 24.3 pg 24.7-34.3 [facility] Automated erythrocyte mean c orpuscular hemoglobin concentration measurement (mass/volon 06-06-2020 MCHC (RBC) [Mass/Vol] 29.8 g/dL 32.0-35.0 [facility] Automated erythrocyte mean c orpuscular volumeon 06-06-2020 MCV (RBC) [Entitic vol] 81.5 fL 80-100 [facility] Automated monocyte %on 06-06 Monocytes/100 WBC (Bld) 10.6 % [facility] Automated neutrophil %on Neutrophils/100 WBC (Bld) 59.0 % [facility] Blood anisocytosis detection on 06-06-2020 Anisocytosis Ql (Bld) Marked [facility] Blood erythrocytes automated count (number/volume)on 06-06-2020 RBC (Bld) [#/Vol] 4.81 10*6/uL 3.60-5.00 [facility] Blood hemoglobin measurement (mass/volume)on 06-06-2020 Hemoglobin (Bld) [Mass/Vol] 11.7 g/dL 11.8-15.4 [facility] Blood leukocytes automated c ount (number/volume)on 06-06-2020 WBC (Bld) [#/Vol] 7.1 10*3/uL 3.8-11.6 [facility] Blood neutrophil count by au tomated method (number/volume)on 06-06-2020 Neutrophils (Bld) [#/Vol] 4.2 10*3/uL 1.8-7.7 [facility] Blood polychromasia detectio n by light microscopyon 06-06-2020 Polychromasia LM Ql (Bld) Slight [facility] Creatine kinase [Enzymatic a ctivity/volume] in Serum or Plasmaon 06-06-2020 CK [Catalytic activity/Vol] 141 U/L 22-269 [facility] Ferritin [Mass/volume] in Se rum or Plasmaon 06-06-2020 Ferritin [Mass/Vol] 27.5 ng/mL 11-306.8 [facility] Hematocrit [Volume Fraction] of Blood by Automated counton 06-06-2020 Hematocrit (Bld) [Volume fraction] 39.2 % 34.0-46.4 [facility] Hematologyon 06-06-2020 Platelets (Bld) [#/Vol] Decreased Normal [facility] Hypochromia detectionon Hypochromia Ql (Bld) Moderate [facility] Otheron 06-06-2020 Absolute Reticulocyte Count 0.131 10*6/uL 0.024-0.08 4 [facility] Microcytosis Slight [facility] Nucleated RBC/100 WBC (Bld) [Ratio] 0.1 % 0-0.5 [facility] Percent Reticulocyte Count 2.7 % 0.5-1.5 [facility] Platelet Morphology Comment Normal Normal [facility] Poikilocytosis Slight [facility] Schistocytes Rare [facility] Ovalocyte detectionon 2019 Ovalocytes LM Ql (Bld) [facility] RBC morphologyon 06-06-2020 RBC morphology finding Nom (Bld) N/A [facility] Serum or plasma cardiac trop onin I measurement (mass/volume)on 06-06-2020 Troponin I.cardiac [Mass/Vol] 0.08 ng/mL 0-0.02 [facility] Comment on above: [place] Cut off value > or equal to 0.03 ng/mL in conjunction with clinical conditions of myocardial infarction.([email or web address]) Serum or plasma creatine kin ase MB (CKMB)/total creatine kinase (CK) ratio by calculaon 06-06-2020 CK.MB Calc [Catalytic fraction] 4.1 0.00-2.50 [facility] Serum or plasma creatine kin ase MB measurement (mass/volume)on 06-06-2020 CK.MB [Mass/Vol] 5.8 ng/mL 0.6-6.3 [facility] Target cellson 06-06-2020 Target cells LM Ql (Bld) Slight [facility] Teardrop cell detectionon Dacrocytes LM Ql (Bld) Rare [facility] COVID-19 Positive/Negativeon 06-05-2020 COVID-19 Positive/Negative Negative Negative [facility] Comment on above: Testing for SARS-CoV -2 by RT-PCRThis test was developed and its performance characteristics determined by [employer] ([employer] [place] and validated at the [facility]. This test has not been FDA cleared [...] Otheron 06-05-2020 Coronavirus 2019 PCR Interp N/A [facility] Urine lactic acid measuremen ton 06-05-2020 Lactate (U) [Moles/Vol] 1.1 mmol/L [facility] Activated partial thrombopla stin time (aPTT) in platelet poor plasma by coagulation aon 06-04-2020 aPTT Coag (PPP) [Time] 28.9 s 23.0-35.0 [facility] Cardiacon 06-04-2020 Natriuretic peptide B (Bld) [Mass/Vol] 1836.0 pg/mL 5-100 [facility] Hematologyon 06-04-2020 PT Coag (PPP) [Time] 15.7 s 9.0-12.9 [facility] Metabolic Panelon 06-04-2020 Magnesium [Mass/Vol] 1.7 mg/dL 1.6-2.6 [facility] Otheron 06-04-2020 Crenated Cell Moderate [facility] Platelet poor plasma interna tional normalized ratio (INR) by coagulation assay (relaton 06-04-2020 INR Coag (PPP) [Relative time] 1.4 {INR} [facility] Comment on above: INR Therapeutic Rang e [...] gap molar conc 14 mmol/L Normal 10-20 [facility] Comment on above: Performed By: #### 1 [id number] #### [facility] [address] [place] [address] Calcium mass conc 8.8 mg/dL Normal 8.6-10.3 [facility] Comment on above: Performed By: #### 1 [id number] #### [facility] [address] [place] [address]67[address] Chloride molar conc 101 mmol/L Normal 98-107 [facility] Comment on above: Performed By: #### 1 [id number] #### [facility] [address] [place] [address]26[address] Creatinine mass conc 0.96 mg/dL Normal 0.50-1.05 [facility] Comment on above: Performed By: #### 1 [id number] #### [facility] [address] [place] [address] GFR/1.73 sq M.predicted MDRD vol rate/area mL/min/{1.73_m2} Normal [facility] Comment on above: Result Comment: Inte rpretation for Chronic Kidney Disease: Stages 1&2 >60 Healthy or potential kidney damage. Mild decrease of GFR. Stage 3 30-59 Moderate decrease of GFR. Stage 4 15-29 Severe decrease of GFR. Stage 5 <15 Kidney failure or on dialysis. Performed By: #### 1 [id number] #### [facility] [address] [place] [address]48[address] Glucose mass conc 81 mg/dL Normal 70-100 [facility] Comment on above: Performed By: #### 1 [id number] #### [facility] [address] [place] [address] HCO3 molar conc (Bld) 25 mmol/L Normal 21-32 [facility] Comment on above: Performed By: #### 1 [id number] #### [facility] [address] [place] [address] Potassium molar conc 4.4 mmol/L Normal 3.5-5.1 [facility] Comment on above: Performed By: #### 1 [id number] #### [facility] [address] [place] [address] Sodium molar conc 136 mmol/L Normal 136-145 [facility] Comment on above: Performed By: #### 1 [id number] #### [facility] [address] [place] [address] Urea nitrogen mass conc 11 mg/dL Normal 6-23 [facility] Comment on above: Performed By: #### 1 [id number] #### [facility] [address] [place] [address] Urea nitrogen/Creatinine mass ratio 11 mg/mg Normal 5-25 [facility] Comment on above: Performed By: #### 1 [id number] #### [facility] [address] [place] [address] Prothrombin Timeon 9 INR Coag RelTime (PPP) 1.06 {INR} Normal 0.90-1.10 [facility] Comment on above: Performed By: #### 1 [id number] #### [facility] [address] [place] [address] Prothrombin time (PT) Coag time (PPP) 12.0 s Normal 9.7-12.7 [facility] Comment on above: Result Comment: MEGAN RUBIN NOTE NEW REFERENCE RANGE EFFECTIVE 2018 Performed By: #### 1 [id number] #### [facility] [address] [place] [address] Basic Metabolic Panelon 02-0 Anion gap molar conc 8 mmol/L Low 10-20 [facility] Comment on above: Performed By: #### 1 [id number] #### [facility] [address] [place] [address] Calcium mass conc 9.0 mg/dL Normal 8.6-10.3 [facility] Comment on above: Performed By: #### 1 [id number] #### [facility] [address] [place] [address] Chloride molar conc 100 mmol/L Normal 98-107 [facility] Comment on above: Performed By: #### 1 [id number] #### [facility] [address] [place] [address] Creatinine mass conc 1.05 mg/dL Normal 0.50-1.05 [facility] Comment on above: Performed By: #### 1 [id number] #### [facility] [address] [place] [address] GFR/1.73 sq M.predicted MDRD vol rate/area 56 mL/min/{1.73_m2} Normal [facility] Comment on above: Result Comment: Inte rpretation for Chronic Kidney Disease: Stages 1&2 >60 Healthy or potential kidney damage. Mild decrease of GFR. Stage 3 30-59 Moderate decrease of GFR. Stage 4 15-29 Severe decrease of GFR. Stage 5 <15 Kidney failure or on dialysis. Performed By: #### 1 [id number] #### [facility] [address] [place] [address] Glucose mass conc 78 mg/dL Normal 70-100 [facility] Comment on above: Performed By: #### 1 [id number] #### [facility] [address] [place] [address] HCO3 molar conc (Bld) 31 mmol/L Normal 21-32 [facility] Comment on above: Performed By: #### 1 [id number] #### [facility] [address] [place] [address] Potassium molar conc 4.8 mmol/L Normal 3.5-5.1 [facility] Comment on above: Performed By: #### 1 [id number] #### [facility] [address] [place] [address] Sodium molar conc 134 mmol/L Low 136-145 [facility] Comment on above: Performed By: #### 1 [id number] #### [facility] [address] [place] [address] Urea nitrogen mass conc 16 mg/dL Normal 6-23 [facility] Comment on above: Performed By: #### 1 [id number] #### [facility] [address] [place] [address] Urea nitrogen/Creatinine mass ratio 15 mg/mg Normal 5-25 [facility] Comment on above: Performed By: #### 1 [id number] #### [facility] [address] [place] [address] Prothrombin Timeon 9 INR Coag RelTime (PPP) 1.87 {INR} High 0.90-1.10 [facility] Comment on above: Performed By: #### 1 [id number] #### [facility] [address] [place] [address] Prothrombin time (PT) Coag time (PPP) 21.4 s High 9.7-12.7 [facility] Comment on above: Result Comment: MEGAN RUBIN NOTE NEW REFERENCE RANGE EFFECTIVE 2018 Performed By: #### 1 [id number] #### [facility] [address] [place] [address] Activated Clotting Time Low Rangeon 08-04-2018 Activated Clotting Time Low Range 192 sec Normal [facility] Comment on above: Result Comment: Norm al: 96-167 Secs(Unheparinized) Stent Implant Range: >300 Secs Sheath Removal: 150-170 Secs CRRT: 180-220 Secs (Continous Renal Replacement Therapy) Performed By: #### 1 [id number] #### [facility] [address] [place] [address] Activated Clotting Time Low Range 180 sec Normal [facility] Comment on above: Result Comment: Norm al: 96-167 Secs(Unheparinized) Stent Implant Range: >300 Secs Sheath Removal: 150-170 Secs CRRT: 180-220 Secs (Continous Renal Replacement Therapy) Performed By: #### 1 [id number] #### [facility] [address] [place] [address] Activated Clotting Time Low Range 121 sec Normal [facility] Comment on above: Result Comment: Norm al: 96-167 Secs(Unheparinized) Stent Implant Range: >300 Secs Sheath Removal: 150-170 Secs CRRT: 180-220 Secs (Continous Renal Replacement Therapy) Performed By: #### 1 [id number] #### [facility] [address] [place] [address] CBCon 08-04-2018 Erythrocyte distribution width Ratio (RBC) 15.8 % High 12.0-15.4 [facility] Comment on above: Performed By: #### 1 [id number] #### [facility] [address] [place] [address] Hematocrit Volume Fraction (Bld) 41.8 % Normal 36.5-46.6 [facility] Comment on above: Performed By: #### 1 [id number] #### [facility] [address] [place] [address] Hemoglobin mass conc (Bld) 13.0 g/dL Normal 11.8-15.3 [facility] Comment on above: Performed By: #### 1 [id number] #### [facility] [address] [place] [address] MCH Entitic mass (RBC) 25.8 pg Low 27.5-33.0 [facility] Comment on above: Performed By: #### 1 [id number] #### [facility] [address] [place] [address]75[address] MCHC mass conc (RBC) 31.1 g/dL Normal 30.1-35.0 [facility] Comment on above: Performed By: #### 1 [id number] #### [facility] [address] [place] [address] MCV Entitic volume (RBC) 83.1 fL Low 85.4-100.0 [facility] Comment on above: Performed By: #### 1 [id number] #### [facility] [address] [place] [address] NRBC Absolute 0.00 10*3/uL Normal [facility] Comment on above: Performed By: #### 1 [id number] #### [facility] [address] [place] [address] NRBC Automated 0.0 /100{WBCs} Normal [facility] Comment on above: Performed By: #### 1 [id number] #### [facility] [address] [place] [address] Platelet mean volume Entitic volume (Bld) 11.5 fL Normal 9.9-12.1 [facility] Comment on above: Performed By: #### 1 [id number] #### [facility] [address] [place] [address] Platelets #/vol (Bld) 233 10*3/uL Normal 155-404 [facility] Comment on above: Performed By: #### 1 [id number] #### [facility] [address] [place] [address] RBC #/vol (Bld) 5.03 10*6/uL Normal 3.85-5.10 [facility] Comment on above: Performed By: #### 1 [id number] #### [facility] [address] [place] [address] RDW SD 46.8 fL Normal 39.3-48.6 [facility] Comment on above: Performed By: #### 1 [id number] #### [facility] [address] [place] [address] WBC #/vol (Bld) 11.2 10*3/uL High 4.4-9.9 [facility] Comment on above: Performed By: #### 1 [id number] #### [facility] [address] [place] [address] Prothrombin Timeon 8 INR Coag RelTime (PPP) 1.18 {INR} High 0.90-1.10 [facility] Comment on above: Performed By: #### 1 [id number] #### [facility] [address] [place] [address] Prothrombin time (PT) Coag time (PPP) 13.4 s High 9.7-12.7 [facility] Comment on above: Result Comment: Delt a check investigation completed per policy PLEASE NOTE NEW REFERENCE RANGE EFFECTIVE 2018 Performed By: #### 1 [id number] #### [facility] [address] [place] [address] Basic Metabolic Panelon 12-0 Anion gap molar conc 14 mmol/L Normal 10-20 [facility] Comment on above: Performed By: #### 1 [id number] #### [facility] [address] [place] [address] Calcium mass conc 9.5 mg/dL Normal 8.6-10.3 [facility] Comment on above: Performed By: #### 1 [id number] #### [facility] [address] [place] [address] Chloride molar conc 103 mmol/L Normal 98-107 [facility] Comment on above: Performed By: #### 1 [id number] #### [facility] [address] [place] [address] Creatinine mass conc 0.94 mg/dL Normal 0.50-1.05 [facility] Comment on above: Performed By: #### 1 [id number] #### [facility] [address] [place] [address] GFR/1.73 sq M.predicted MDRD vol rate/area mL/min/{1.73_m2} Normal [facility] Comment on above: Result Comment: Inte rpretation for Chronic Kidney Disease: Stages 1&2 >60 Healthy or potential kidney damage. Mild decrease of GFR. Stage 3 30-59 Moderate decrease of GFR. Stage 4 15-29 Severe decrease of GFR. Stage 5 <15 Kidney failure or on dialysis. Performed By: #### 1 [id number] #### [facility] [address] [place] [address] Glucose mass conc 81 mg/dL Normal 70-100 [facility] Comment on above: Performed By: #### 1 [id number] #### [facility] [address] [place] [address] HCO3 molar conc (Bld) 26 mmol/L Normal 21-32 [facility] Comment on above: Performed By: #### 1 [id number] #### [facility] [address] [place] [address] Potassium molar conc 3.8 mmol/L Normal 3.5-5.1 [facility] Comment on above: Performed By: #### 1 [id number] #### [facility] [address] [place] [address] Sodium molar conc 139 mmol/L Normal 136-145 [facility] Comment on above: Performed By: #### 1 [id number] #### [facility] [address] [place] [address] Urea nitrogen mass conc 10 mg/dL Normal 6-23 [facility] Comment on above: Performed By: #### 1 [id number] #### [facility] [address] [place] [address] Urea nitrogen/Creatinine mass ratio 11 mg/mg Normal 5-25 [facility] Comment on above: Performed By: #### 1 [id number] #### [facility] [address] [place] [address] CBCon 08-02-2018 Erythrocyte distribution width Ratio (RBC) 15.9 % High 12.0-15.4 [facility] Comment on above: Performed By: #### 1 [id number] #### [facility] [address] [place] [address] Hematocrit Volume Fraction (Bld) 47.6 % High 36.5-46.6 [facility] Comment on above: Performed By: #### 1 [id number] #### [facility] [address] [place] [address] Hemoglobin mass conc (Bld) 14.3 g/dL Normal 11.8-15.3 [facility] Comment on above: Performed By: #### 1 [id number] #### [facility] [address] [place] [address] MCH Entitic mass (RBC) 26.1 pg Low 27.5-33.0 [facility] Comment on above: Performed By: #### 1 [id number] #### [facility] [address] [place] [address] MCHC mass conc (RBC) 30.0 g/dL Low 30.1-35.0 [facility] Comment on above: Performed By: #### 1 [id number] #### [facility] [address] [place] [address] MCV Entitic volume (RBC) 86.9 fL Normal 85.4-100.0 [facility] Comment on above: Performed By: #### 1 [id number] #### [facility] [address] [place] [address] NRBC Absolute 0.00 10*3/uL Normal [facility] Comment on above: Performed By: #### 1 [id number] #### [facility] [address] [place] [id number] NRBC Automated 0.0 /100{WBCs} Normal [facility] Comment on above: Performed By: #### 1 [id number] #### [facility] [address] [place] [address] 84437 Platelet mean volume Entitic volume (Bld) 13.7 fL High 9.9-12.1 [facility] Comment on above: Performed By: #### 1 [id number] #### [facility] [address] [place] [address] 40893 Platelets #/vol (Bld) 223 10*3/uL Normal 155-404 [facility] Comment on above: Performed By: #### 1 [id number] #### [facility] [address] [place] [address] 60079 RBC #/vol (Bld) 5.48 10*6/uL High 3.85-5.10 [facility] Comment on above: Performed By: #### 1 [id number] #### [facility] [address] [place] [address] 81040 RDW SD 50.1 fL High 39.3-48.6 [facility] Comment on above: Performed By: #### 1 [id number] #### [facility] [address] [place] [address] 85233 WBC #/vol (Bld) 12.6 10*3/uL High 4.4-9.9 [facility] Comment on above: Performed By: #### 1 [id number] #### [facility] [address] [place] [address] 22860 Prothrombin Timeon 8 INR Coag RelTime (PPP) 3.04 {INR} High 0.90-1.10 [facility] Healthcare Comment on above: Performed By: #### 1 [id number] #### [facility] [address] [place] [address] 08224 Prothrombin time (PT) Coag time (PPP) 35.1 s High 9.7-12.7 [facility] Comment on above: Result Comment: MEGAN RUBIN NOTE NEW REFERENCE RANGE EFFECTIVE 2018 Performed By: #### 1 [id number] #### [facility] [address] [place] [address] 59025 Basic Metabolic Panelon 11-0 Anion gap molar conc 11 mmol/L Normal 10-20 [facility] Comment on above: Performed By: #### 1 [id number] #### [facility] [address] [place] [address] 08611 Calcium mass conc 9.0 mg/dL Normal 8.6-10.3 [facility] Comment on above: Performed By: #### 1 240379 #### [facility] [address] [place] [address] 48778 Chloride molar conc 99 mmol/L Normal 98-107 [facility] Comment on above: Performed By: #### 1 [id number] #### [facility] [address] [place] [address] 19403 Creatinine mass conc 1.00 mg/dL Normal 0.50-1.05 [facility] Comment on above: Performed By: #### 1 [id number] #### [facility] [address] [place] [address] 78166 GFR/1.73 sq M.predicted MDRD vol rate/area 59 mL/min/{1.73_m2} Normal [facility] Comment on above: Result Comment: Inte rpretation for Chronic Kidney Disease: Stages 1&2 >60 Healthy or potential kidney damage. Mild decrease of GFR. Stage 3 30-59 Moderate decrease of GFR. Stage 4 15-29 Severe decrease of GFR. Stage 5 <15 Kidney failure or on dialysis. Performed By: #### 1 [id number] #### [facility] [address] [place] [address] Glucose mass conc 81 mg/dL Normal 70-100 [facility] Comment on above: Performed By: #### 1 785739 #### [facility] [address] [place] [address] HCO3 molar conc (Bld) 27 mmol/L Normal 21-32 [facility] Comment on above: Performed By: #### 1 [id number] #### [facility] [address] [place] [address] Potassium molar conc 4.1 mmol/L Normal 3.5-5.1 [facility] Comment on above: Performed By: #### 1 851209 #### [facility] [address] [place] [address] Sodium molar conc 133 mmol/L Low 136-145 [facility] Comment on above: Performed By: #### 1 [id number] #### [facility] [address] [place] [address] 33905 Urea nitrogen mass conc 14 mg/dL Normal 6-23 [facility] Comment on above: Performed By: #### 1 [id number] #### [facility] [address] [place] [address] Urea nitrogen/Creatinine mass ratio 14 mg/mg Normal 5-25 [facility] Comment on above: Performed By: #### 1 [id number] #### [facility] [address] [place] [address] Magnesiumon 07-01-2018 Magnesium mass conc 1.9 mg/dL Normal 1.6-2.4 [facility] Comment on above: Performed By: #### 1 [id number] #### [facility] [address] [place] [address] Prothrombin Timeon 8 INR Coag RelTime (PPP) 3.10 {INR} High 0.90-1.10 [facility] Comment on above: Performed By: #### 1 377806 #### [facility] [address] [place] [address] Prothrombin time (PT) Coag time (PPP) 35.8 s High 9.7-12.7 [facility] Comment on above: Result Comment: MEGAN NOTE NEW REFERENCE RANGE EFFECTIVE 2018 Performed By: #### 1 [id number] #### [facility] [address] [place] [address] Basic Metabolic Panelon 11-0 Anion gap molar conc 12 mmol/L Normal 10-20 [facility] Comment on above: Performed By: #### 1 [id number] #### [facility] [address] [place] [address] Calcium mass conc 9.0 mg/dL Normal 8.6-10.3 [facility] Comment on above: Performed By: #### 1 840605 #### [facility] [address] [place] [address] Chloride molar conc 101 mmol/L Normal 98-107 [facility] Comment on above: Performed By: #### 1 612292 #### [facility] [address] [place] [address] Creatinine mass conc 1.04 mg/dL Normal 0.50-1.05 [facility] Comment on above: Performed By: #### 1 143016 #### [facility] [address] [place] [address] GFR/1.73 sq M.predicted MDRD vol rate/area 56 mL/min/{1.73_m2} Normal [facility] Comment on above: Result Comment: Inte rpretation for Chronic Kidney Disease: Stages 1&2 >60 Healthy or potential kidney damage. Mild decrease of GFR. Stage 3 30-59 Moderate decrease of GFR. Stage 4 15-29 Severe decrease of GFR. Stage 5 <15 Kidney failure or on dialysis. Performed By: #### 1 794312 #### [facility] [address] [place] [address] Glucose mass conc 89 mg/dL Normal 70-100 [facility] Comment on above: Performed By: #### 1 191959 #### [facility] [address] [place] [address] HCO3 molar conc (Bld) 25 mmol/L Normal 21-32 [facility] Comment on above: Performed By: #### 1 599318 #### [facility] [address] [place] [address] Potassium molar conc 4.3 mmol/L Normal 3.5-5.1 [facility] Comment on above: Performed By: #### 1 847155 #### [facility] [address] [place] [address] Sodium molar conc 134 mmol/L Low 136-145 [facility] Comment on above: Performed By: #### 1 065649 #### [facility] [address] [place] [address] Urea nitrogen mass conc 12 mg/dL Normal 6-23 [facility] Comment on above: Performed By: #### 1 813833 #### [facility] [address] [place] [address] 29781 Urea nitrogen/Creatinine mass ratio 12 mg/mg Normal 5-25 [facility] Comment on above: Performed By: #### 1 158202 #### [facility] [address] [place] [address] 734[address] Magnesiumon 06-30-2018 Magnesium mass conc 2.0 mg/dL Normal 1.6-2.4 [facility] Comment on above: Performed By: #### 1 474856 #### [facility] [address] [place] [address] 75775 Prothrombin Timeon 8 INR Coag RelTime (PPP) 2.93 {INR} High 0.90-1.10 [facility] Comment on above: Performed By: #### 2 441851 #### [facility] [address] [place] [address] 30403 Prothrombin time (PT) Coag time (PPP) 33.9 s High 9.7-12.7 [facility] Comment on above: Result Comment: PLEA NOTE NEW REFERENCE RANGE EFFECTIVE 2018 Performed By: #### 2 [id number] #### [facility] [address] [place] [address] 24670 Basic Metabolic Panelon 10-3 Anion gap molar conc 8 mmol/L Low 10-20 [facility] Comment on above: Performed By: #### 2 509137 #### [facility] [address] [place] [address] Calcium mass conc 8.7 mg/dL Normal 8.6-10.3 [facility] Comment on above: Performed By: #### 2 354109 #### [facility] [address] [place] [address] Chloride molar conc 103 mmol/L Normal 98-107 [facility] Comment on above: Performed By: #### 2 682637 #### [facility] [address] [place] [address] Creatinine mass conc 0.89 mg/dL Normal 0.50-1.05 [facility] Comment on above: Performed By: #### 2 702362 #### [facility] [address] [place] [address] GFR/1.73 sq M.predicted MDRD vol rate/area mL/min/{1.73_m2} Normal [facility] Comment on above: Result Comment: Inte rpretation for Chronic Kidney Disease: Stages 1&2 >60 Healthy or potential kidney damage. Mild decrease of GFR. Stage 3 30-59 Moderate decrease of GFR. Stage 4 15-29 Severe decrease of GFR. Stage 5 <15 Kidney failure or on dialysis. Performed By: #### 2 240836 #### [facility] [address] [place] [address] Glucose mass conc 125 mg/dL High 70-100 [facility] Comment on above: Performed By: #### 2 [id number] #### [facility] [address] [place] [address] HCO3 molar conc (Bld) 26 mmol/L Normal 21-32 [facility] Comment on above: Performed By: #### 2 791207 #### [facility] [address] [place] [address] Potassium molar conc 4.0 mmol/L Normal 3.5-5.1 [facility] Comment on above: Performed By: #### 2 417056 #### [facility] [address] [place] [address] Sodium molar conc 133 mmol/L Low 136-145 [facility] Comment on above: Performed By: #### 2 676825 #### [facility] [address] [place] [address] Urea nitrogen mass conc 10 mg/dL Normal 6-23 [facility] Comment on above: Performed By: #### 2 312487 #### [facility] [address] [place] [address] Urea nitrogen/Creatinine mass ratio 11 mg/mg Normal 5-25 [facility] Comment on above: Performed By: #### 2 778409 #### [facility] [address] [place] [address] Magnesiumon 06-29-2018 Magnesium mass conc 1.8 mg/dL Normal 1.6-2.4 [facility] Comment on above: Performed By: #### 2 945552 #### [facility] [address] [place] [address] Prothrombin Timeon 8 INR Coag RelTime (PPP) 3.23 {INR} High 0.90-1.10 [facility] Comment on above: Performed By: #### 2 094291 #### [facility] [address] [place] [address] Prothrombin time (PT) Coag time (PPP) 37.4 s High 9.7-12.7 [facility] Comment on above: Result Comment: PLEA SE NOTE NEW REFERENCE RANGE EFFECTIVE 2018 Performed By: #### 2 [id number] #### [facility] [address] [place] [address] Basic Metabolic Panelon 06-01 Anion gap molar conc 11 mmol/L Normal 10-20 [facility] Comment on above: Performed By: #### 2 940718 #### [facility] [address] [place] [address] Calcium mass conc 8.5 mg/dL Low 8.6-10.3 [facility] Comment on above: Performed By: #### 2 546730 #### [facility] [address] [place] [address] Chloride molar conc 104 mmol/L Normal 98-107 [facility] Comment on above: Performed By: #### 2 927820 #### [facility] [address] [place] [address] Creatinine mass conc 0.90 mg/dL Normal 0.50-1.05 [facility] Comment on above: Performed By: #### 2 505917 #### [facility] [address] [place] [address] GFR/1.73 sq M.predicted MDRD vol rate/area mL/min/{1.73_m2} Normal [facility] Comment on above: Result Comment: Inte rpretation for Chronic Kidney Disease: Stages 1&2 >60 Healthy or potential kidney damage. Mild decrease of GFR. Stage 3 30-59 Moderate decrease of GFR. Stage 4 15-29 Severe decrease of GFR. Stage 5 <15 Kidney failure or on dialysis. Performed By: #### 2 653502 #### [facility] [address] [place] [address] Glucose mass conc 99 mg/dL Normal 70-100 [facility] Comment on above: Performed By: #### 2 196920 #### [facility] [address] [place] [address] HCO3 molar conc (Bld) 23 mmol/L Normal 21-32 [facility] Comment on above: Performed By: #### 2 287327 #### [facility] [address] [place] [address] Potassium molar conc 4.3 mmol/L Normal 3.5-5.1 [facility] Comment on above: Performed By: #### 2 275865 #### [facility] [address] [place] [address] Sodium molar conc 134 mmol/L Low 136-145 [facility] Comment on above: Performed By: #### 2 808433 #### [facility] [address] [place] [address] Urea nitrogen mass conc 15 mg/dL Normal 6-23 [facility] Comment on above: Performed By: #### 2 273041 #### [facility] [address] [place] [address] Urea nitrogen/Creatinine mass ratio 17 mg/mg Normal 5-25 [facility] Comment on above: Performed By: #### 2 005994 #### [facility] [address] [place] [address] Magnesiumon 06-28-2018 Magnesium mass conc 1.9 mg/dL Normal 1.6-2.4 [facility] Comment on above: Performed By: #### 2 186230 #### [facility] [address] [place] [address] Prothrombin Timeon 8 INR Coag RelTime (PPP) 4.27 {INR} High 0.90-1.10 [facility] Comment on above: Performed By: #### 2 848664 #### [facility] [address] [place] [address] Prothrombin time (PT) Coag time (PPP) 49.7 s High 9.7-12.7 [facility] Comment on above: Result Comment: MEGAN RUBIN NOTE NEW REFERENCE RANGE EFFECTIVE 2018 Performed By: #### 2 [id number] #### [facility] [address] [place] [address] 94[address] Basic Metabolic Panelon 05-31 Anion gap molar conc 12 mmol/L Normal 10-20 [facility] Comment on above: Performed By: #### 2 [id number] #### [facility] [address] [place] [address] Calcium mass conc 8.4 mg/dL Low 8.6-10.3 [facility] Comment on above: Performed By: #### 2 054195 #### [facility] [address] [place] [address] Chloride molar conc 109 mmol/L High 98-107 [facility] Comment on above: Performed By: #### 2 212937 #### [facility] [address] [place] [address] Creatinine mass conc 1.04 mg/dL Normal 0.50-1.05 [facility] Comment on above: Performed By: #### 2 230296 #### [facility] [address] [place] [address] GFR/1.73 sq M.predicted MDRD vol rate/area 56 mL/min/{1.73_m2} Normal [facility] Comment on above: Result Comment: Inte rpretation for Chronic Kidney Disease: Stages 1&2 >60 Healthy or potential kidney damage. Mild decrease of GFR. Stage 3 30-59 Moderate decrease of GFR. Stage 4 15-29 Severe decrease of GFR. Stage 5 <15 Kidney failure or on dialysis. Performed By: #### 2 884014 #### [facility] [address] [place] [address] Glucose mass conc 84 mg/dL Normal 70-100 [facility] Comment on above: Performed By: #### 2 304211 #### [facility] [address] [place] [address] HCO3 molar conc (Bld) 21 mmol/L Normal 21-32 [facility] Comment on above: Performed By: #### 2 284997 #### [facility] [address] [place] [address] Potassium molar conc 4.5 mmol/L Normal 3.5-5.1 [facility] Comment on above: Performed By: #### 2 [id number] #### [facility] [address] [place] [address] Sodium molar conc 138 mmol/L Normal 136-145 [facility] Comment on above: Performed By: #### 2 648664 #### [facility] [address] [place] [address] Urea nitrogen mass conc 16 mg/dL Normal 6-23 [facility] Comment on above: Performed By: #### 2 476326 #### [facility] [address] [place] [address] Urea nitrogen/Creatinine mass ratio 15 mg/mg Normal 5-25 [facility] Comment on above: Performed By: #### 2 377985 #### [facility] [address] [place] [address] Anion gap molar conc 10 mmol/L Normal 10-20 [facility] Comment on above: Performed By: #### 2 [id number] #### [facility] [address] [place] [address] Calcium mass conc 8.6 mg/dL Normal 8.6-10.3 [facility] Comment on above: Performed By: #### 2 558147 #### [facility] [address] [place] [address] Chloride molar conc 107 mmol/L Normal 98-107 [facility] Comment on above: Performed By: #### 2 175301 #### [facility] [address] [place] [address] Creatinine mass conc 1.05 mg/dL Normal 0.50-1.05 [facility] Comment on above: Performed By: #### 2 059996 #### [facility] [address] [place] [address] GFR/1.73 sq M.predicted MDRD vol rate/area 56 mL/min/{1.73_m2} Normal [facility] Comment on above: Result Comment: Inte rpretation for Chronic Kidney Disease: Stages 1&2 >60 Healthy or potential kidney damage. Mild decrease of GFR. Stage 3 30-59 Moderate decrease of GFR. Stage 4 15-29 Severe decrease of GFR. Stage 5 <15 Kidney failure or on dialysis. Performed By: #### 2 561644 #### [facility] [address] [place] [address] Glucose mass conc 95 mg/dL Normal 70-100 [facility] Comment on above: Performed By: #### 2 733487 #### [facility] [address] [place] [address] HCO3 molar conc (Bld) 26 mmol/L Normal 21-32 [facility] Comment on above: Performed By: #### 2 [id number] #### [facility] [address] [place] [address] Potassium molar conc 4.3 mmol/L Normal 3.5-5.1 [facility] Comment on above: Performed By: #### 2 224607 #### [facility] [address] [place] [address] Sodium molar conc 139 mmol/L Normal 136-145 [facility] Comment on above: Performed By: #### 2 875320 #### [facility] [address] [place] [address] Urea nitrogen mass conc 17 mg/dL Normal 6-23 [facility] Comment on above: Performed By: #### 2 701408 #### [facility] [address] [place] [address] Urea nitrogen/Creatinine mass ratio 16 mg/mg Normal 5-25 [facility] Comment on above: Performed By: #### 2 978237 #### [facility] [address] [place] [address] CBC With Differentialon 05-31 Basophils #/vol (Bld) 0.11 10*3/uL High 0.01-0.07 [facility] Comment on above: Performed By: #### 2 422634 #### [facility] [address] [place] [address] Basophils/100 WBC (Bld) 1.2 % Normal 0.1-1.2 [facility] Comment on above: Performed By: #### 2 [id number] #### [facility] [address] [place] [address] Eosinophils #/vol (Bld) 0.45 10*3/uL Normal 0.04-0.50 [facility] Comment on above: Performed By: #### 2 306040 #### [facility] [address] [place] [address] Eosinophils/100 WBC (Bld) 4.7 % Normal 0.0-8.1 [facility] Comment on above: Performed By: #### 2 994488 #### [facility] [address] [place] [address] Erythrocyte distribution width Ratio (RBC) 15.7 % High 12.0-15.4 [facility] Comment on above: Performed By: #### 2 766602 #### [facility] [address] [place] [address] Hematocrit Volume Fraction (Bld) 38.5 % Normal 36.5-46.6 [facility] Comment on above: Performed By: #### 2 891493 #### [facility] [address] [place] [address] Hemoglobin mass conc (Bld) 11.9 g/dL Normal 11.8-15.3 [facility] Comment on above: Performed By: #### 2 175300 #### [facility] [address] [place] [address] Imm Grans Absolute 0.09 10*3/uL Normal 0.00-0.21 [facility] Comment on above: Performed By: #### 2 552276 #### [facility] [address] [place] [address] Immature granulocytes #/vol (Bld) 0.9 % Normal [facility] Comment on above: Performed By: #### 2 131586 #### [facility] [address] [place] [address] Lymphocytes #/vol (Bld) 3.15 10*3/uL High 0.40-2.84 [facility] Comment on above: Performed By: #### 2 451605 #### [facility] [address] [place] [address] Lymphocytes/100 WBC (Bld) 33.2 % Normal 15.7-50.5 [facility] Comment on above: Performed By: #### 2 221025 #### [facility] [address] [place] [address] MCH Entitic mass (RBC) 26.1 pg Low 27.5-33.0 [facility] Comment on above: Performed By: #### 2 367453 #### [facility] [address] [place] [address] MCHC mass conc (RBC) 30.9 g/dL Normal 30.1-35.0 [facility] Comment on above: Performed By: #### 2 [id number] #### [facility] [address] [place] [address] MCV Entitic volume (RBC) 84.4 fL Low 85.4-100.0 [facility] Comment on above: Performed By: #### 2 095424 #### [facility] [address] [place] [address] Monocytes #/vol (Bld) 0.91 10*3/uL High 0.25-0.83 [facility] Comment on above: Performed By: #### 2 457059 #### [facility] [address] [place] [address] Monocytes/100 WBC (Bld) 9.6 % Normal 4.8-12.7 [facility] Comment on above: Performed By: #### 2 806511 #### [facility] [address] [place] [address] Neutrophils Absolute 4.78 10*3/uL Normal 1.95-6.85 [facility] Comment on above: Performed By: #### 2 [id number] #### [facility] [address] [place] [address] Neutrophils/100 WBC (Bld) 50.4 % Normal 36.8-73.2 [facility] Comment on above: Performed By: #### 2 595951 #### [facility] [address] [place] [address] NRBC Absolute 0.00 10*3/uL Normal [facility] Comment on above: Performed By: #### 2 [id number] #### [facility] [address] [place] [address] NRBC Automated 0.0 /100{WBCs} Normal [facility] Comment on above: Performed By: #### 2 094596 #### [facility] [address] [place] [address] Platelet mean volume Entitic volume (Bld) 11.1 fL Normal 9.9-12.1 [facility] Comment on above: Performed By: #### 2 068388 #### [facility] [address] [place] [address] Platelets #/vol (Bld) 215 10*3/uL Normal 155-404 [facility] Comment on above: Performed By: #### 2 285218 #### [facility] [address] [place] [address] RBC #/vol (Bld) 4.56 10*6/uL Normal 3.85-5.10 [facility] Comment on above: Performed By: #### 2 [id number] #### [facility] [address] [place] [address] RDW SD 48.0 fL Normal 39.3-48.6 [facility] Comment on above: Performed By: #### 2 653696 #### [facility] [address] [place] [address] WBC #/vol (Bld) 9.5 10*3/uL Normal 4.4-9.9 [facility] Comment on above: Performed By: #### 2 [id number] #### [facility] [address] [place] [address] Comprehensive Metabolic Pane selene 06-27-2018 Albumin mass conc 3.9 g/dL Normal 3.4-5.0 [facility] Comment on above: Performed By: #### 1 749892 #### [facility] [address] [place] [address] Albumin/Globulin mass ratio 1.3 {ratio} Normal 0.9-2.4 [facility] Comment on above: Performed By: #### 1 541659 #### [facility] [address] [place] [address] ALP enzyme act/vol 150 U/L High 45-117 [facility] Comment on above: Performed By: #### 1 634752 #### [facility] [address] [place] [address] ALT enzyme act/vol 11 U/L Normal 7-45 [facility] Comment on above: Performed By: #### 1 340775 #### [facility] [address] [place] [address] Anion gap molar conc 13 mmol/L Normal 10-20 [facility] Comment on above: Performed By: #### 1 494227 #### [facility] [address] [place] [address] AST enzyme act/vol 21 U/L Normal 13-39 [facility] Comment on above: Performed By: #### 1 397454 #### [facility] [address] [place] [address] Bilirubin mass conc 0.3 mg/dL Normal 0.0-1.2 [facility] Comment on above: Performed By: #### 1 469525 #### [facility] [address] [place] [address] Calcium mass conc 9.0 mg/dL Normal 8.6-10.3 [facility] Comment on above: Performed By: #### 1 [id number] #### [facility] [address] [place] [address] Chloride molar conc 103 mmol/L Normal 98-107 [facility] Comment on above: Performed By: #### 1 [id number] #### [facility] [address] [place] [address] Creatinine mass conc 1.09 mg/dL High 0.50-1.05 [facility] Comment on above: Performed By: #### 1 [id number] #### [facility] [address] [place] [address] GFR/1.73 sq M.predicted MDRD vol rate/area 53 mL/min/{1.73_m2} Normal [facility] Comment on above: Result Comment: Inte rpretation for Chronic Kidney Disease: Stages 1&2 >60 Healthy or potential kidney damage. Mild decrease of GFR. Stage 3 30-59 Moderate decrease of GFR. Stage 4 15-29 Severe decrease of GFR. Stage 5 <15 Kidney failure or on dialysis. Performed By: #### 1 [id number] #### [facility] [address] [place] [address] Glucose mass conc 94 mg/dL Normal 70-100 [facility] Comment on above: Performed By: #### 1 [id number] #### [facility] [address] [place] [address] HCO3 molar conc (Bld) 27 mmol/L Normal 21-32 [facility] Comment on above: Performed By: #### 1 [id number] #### [facility] [address] [place] [address] Potassium molar conc 4.3 mmol/L Normal 3.5-5.1 [facility] Comment on above: Performed By: #### 1 [id number] #### [facility] [address] [place] [address] Protein mass conc 6.8 g/dL Normal 6.4-8.2 [facility] Comment on above: Performed By: #### 1 [id number] #### [facility] [address] [place] [address] Sodium molar conc 139 mmol/L Normal 136-145 [facility] Comment on above: Performed By: #### 1 [id number] #### [facility] [address] [place] [address] Urea nitrogen mass conc 19 mg/dL Normal 6-23 [facility] Comment on above: Performed By: #### 1 [id number] #### [facility] [address] [place] [address] Urea nitrogen/Creatinine mass ratio 17 mg/mg Normal 5-25 [facility] Comment on above: Performed By: #### 1 [id number] #### [facility] [address] [place] [address] Magnesiumon 06-27-2018 Magnesium mass conc 2.0 mg/dL Normal 1.6-2.4 [facility] Comment on above: Performed By: #### 2 [id number] #### [facility] [address] [place] [address] Magnesium mass conc 1.9 mg/dL Normal 1.6-2.4 [facility] Comment on above: Performed By: #### 1 [id number] #### [facility] [address] [place] [address] 617[address] Partial Thromboplastin Timeo n 06-27-2018 aPTT Coag time (Bld) 29.7 s Normal 25.0-36.0 [facility] Comment on above: Result Comment: . The APTT is no longer used for monitoring Unfractionated Heparin Therapy. For monitoring Heparin Therapy, use the Heparin Assay. Performed By: #### 3 [id number] #### [facility] [address] [place] [address] Prothrombin Timeon 8 INR Coag RelTime (PPP) 3.54 {INR} High 0.90-1.10 [facility] Comment on above: Performed By: #### 3 [id number] #### [facility] [address] [place] [address] Prothrombin time (PT) Coag time (PPP) 41.0 s High 9.7-12.7 [facility] Comment on above: Result Comment: MEGAN RUBIN NOTE NEW REFERENCE RANGE EFFECTIVE 2018 Performed By: #### 3 [id number] #### [facility] [address] [place] [address] INR Coag RelTime (PPP) 2.98 {INR} High 0.90-1.10 [facility] Comment on above: Performed By: #### 3 [id number] #### [facility] [address] [place] [address] Prothrombin time (PT) Coag time (PPP) 33.4 s High 9.8-12.7 [facility] Comment on above: Performed By: #### 3 [id number] #### [facility] [address] [place] [address] TSHon 06-27-2018 Thyrotropin Qn 7.04 mU/L High 0.44-3.98 [facility] Comment on above: Performed By: #### 1 [id number] #### [facility] [address] [place] [address] Thyroxine, Freeon 06-27-2018 Thyroxine, Free 0.90 ng/dL Normal 0.61-1.12 [facility] Comment on above: Performed By: #### 1 [id number] #### [facility] [address] [place] [address] Triiodothyronine, Freeon Triiodothyronine, Free 2.3 pg/mL Normal 1.8-4.2 [facility] Comment on above: Performed By: #### F RT3 #### [facility] [address] [place] [address] Drugs of Abuse, Urine(7)on 0 05-12-2018 Amphetamines/Metamphet amines, Urine Not Detected Normal [facility] Comment on above: Performed By: #### 7 [id number] #### [facility] [address] [place] [address] Barbiturates, Urine Detected Abnormal [facility] Comment on above: Performed By: #### 7 [id number] #### [facility] [address] [place] [address] Benzodiazepines, Urine Not Detected Normal [facility] Comment on above: Performed By: #### 7 [id number] #### [facility] [address] [place] [address] Cannabinoids, Urine Not Detected Normal [facility] Comment on above: Performed By: #### 7 [id number] #### [facility] [address] [place] [address] Cocaine, Urine Not Detected Normal [facility] Comment on above: Performed By: #### 7 [id number] #### [facility] [address] [place] [address] Methadone, Urine Not Detected Normal [facility] Comment on above: Performed By: #### 7 [id number] #### [facility] [address] [place] [address] Opiates, Urine Not Detected Normal [facility] Comment on above: Performed By: #### 7 [id number] #### [facility] [address] [place] [address] PCP, Urine Not Detected Normal [facility] Comment on above: Result Comment: Urin e toxicology screen results are to be used for medical purposes only. It is recommended that any result reported as Detected be confirmed by a more specific alternative chemical method. Drug Analyzed Cutoff Concentration(ng/mL) Barbiturates 200 Benzodiazepines 200 Cocaine 150 Opiates 300 Amphetamines 500 Cannabinoids 50 Methadone 150 PCP 25 Performed By: #### 7 [id number] #### [facility] [address] [place] [address] Vital Signs Date Time Vital Sign Value Performing Clinician Facility 04-24-2022 13:31-0400 Body height 157.48 cm Shaikh Crystal Work Phone: [facility] [address] DO Work Phone: 04-24-2022 13:31-0400 Body mass index (BMI) [Ratio] 29.63 kg/m2 Shaikh Crystal Work Phone: [facility] DO Work Phone: 04-24-2022 13:31-0400 Body surface area Derived from formula 1.75 m2 Shaikh Crystal Work Phone: [facility] DO Work Phone: 04-24-2022 13:31-0400 Body weight 73.48 kg Shaikh Crystal Work Phone: [facility] DO Work Phone: 04-24-2022 13:31-0400 Diastolic blood pressure 60 mm[Hg] Shaikh Crystal Work Phone: [facility] DO Work Phone: 04-24-2022 13:31-0400 Heart rate 85 /min Shaikh Crystal Work Phone: [facility] DO Work Phone: 04-24-2022 13:31-0400 Systolic blood pressure 102 mm[Hg] Shaikh Crystal Work Phone: [facility] DO Work Phone: 12-10-2021 06:30-0400 Body height 160.02 cm Jeane Dykes Other [facility] [employer] Other 12-05-2021 08:47-0400 Body height 157.48 cm No PCP None [facility] DO Work Phone: 12-05-2021 08:47-0400 Body mass index (BMI) [Ratio] 27.49 kg/m2 No PCP None [facility] DO Work Phone: 12-05-2021 08:47-0400 Body surface area Derived from formula 1.69 m2 No PCP None [facility] DO Work Phone: 12-05-2021 08:47-0400 Body weight 68.18 kg No PCP None [facility] DO Work Phone: 12-05-2021 08:47-0400 Diastolic blood pressure 72 mm[Hg] No PCP None [facility] DO Work Phone: 12-05-2021 08:47-0400 Heart rate 76 /min No PCP None [facility] DO Work Phone: 12-05-2021 08:47-0400 Systolic blood pressure 104 mm[Hg] No PCP None [facility] DO Work Phone: 10-14-2021 11:23-0500 20 1 Nadir Hoskins DO Work Phone: [facility] DO Work Phone: Comment on above: [id number] 10-13-2021 22:41-0500 Diastolic blood pressure 46 mm[Hg] DO Darian Itzkowitz Work Phone: [facility] 10-13-2021 22:41-0500 Heart rate 59 /min DO Darian Itzkowitz Work Phone: [facility] 10-13-2021 22:41-0500 Systolic blood pressure 80 mm[Hg] DO Darian Itzkowitz Work Phone: [facility] 10-13-2021 21:29-0500 Respiratory rate 18 /min DO Darian Itzkowitz Work Phone: [facility] 10-13-2021 21:29-0500 SaO2% (BldA) [Mass fraction] 96 % DO Darian Itzkowitz Work Phone: [facility] 10-13-2021 13:17-0500 Body height 160.02 cm DO Darian Itzkowitz Work Phone: [facility] 10-13-2021 13:17-0500 Body mass index (BMI) [Ratio] 26.5 kg/m2 DO Darian Itzkowitz Work Phone: [facility] 10-13-2021 13:17-0500 Body temperature 97.4 [degF] DO Darian Smiley Work Phone: [facility] 10-13-2021 13:17-0500 Body weight 68.03 kg DO Darian Baljit Work Phone: [facility] 11-25-2020 15:56-0400 Body Temperature 97.5 [degF] [facility] Baljit [facility] 11-25-2020 15:56-0400 BP Diastolic 85 mm[Hg] [facility] 11-25-2020 15:56-0400 BP Systolic 130 mm[Hg] [facility] 11-25-2020 15:56-0400 Pulse (Heart Rate) 79 /min [facility] 11-25-2020 15:56-0400 Pulse Oximetry 98 % [facility] 11-25-2020 15:56-0400 Respiratory Rate 18 /min [facility] 11-25-2020 15:56-0400 SaO2% (BldA) [Mass fraction] 98 % Dariandebbie Smiley Work Phone: [facility] 11-25-2020 15:19-0400 Height 157.48 cm [facility] 11-25-2020 05:57-0400 Body weight 83.9 kg [facility] 11-23-2020 18:10-0400 BMI (Body Mass Index) 33.9 kg/m2 [facility] 11-23-2020 18:10-0400 Body Temperature 97.9 [degF] [facility] 11-23-2020 18:10-0400 Body weight 84.2 kg [facility] 11-23-2020 18:10-0400 BP Diastolic 81 mm[Hg] Darian Baljit [facility] 11-23-2020 18:10-0400 BP Systolic 121 mm[Hg] Darian Baljit [facility] 11-23-2020 18:10-0400 Height 157.48 cm [facility] Baljit [facility] 11-23-2020 18:10-0400 Pulse (Heart Rate) 83 /min [facility] Baljit [facility] 11-23-2020 18:10-0400 Pulse Oximetry 97 % Darian Baljit [facility] 11-23-2020 18:10-0400 Respiratory Rate 19 /min Darianrakesh Smiley [facility] 08-17-2020 03:00-0500 Body Temperature 97.5 [degF] [facility] Baljit [facility] 08-17-2020 03:00-0500 BP Diastolic 52 mm[Hg] Darian Baljit [facility] 08-17-2020 03:00-0500 BP Systolic 98 mm[Hg] Darian Baljit [facility] 08-17-2020 03:00-0500 Pulse (Heart Rate) 94 /min Darian Baljit [facility] 08-17-2020 03:00-0500 Pulse Oximetry 99 % Darian Baljit [facility] 08-17-2020 03:00-0500 Respiratory Rate 16 /min Darian Baljit [facility] 08-16-2020 22:30-0500 BMI (Body Mass Index) 4648.4 kg/m2 [facility] Baljit [facility] 08-16-2020 22:30-0500 Body weight 81.1 kg [facility] Baljit [facility] 08-16-2020 22:30-0500 Height 13.21 cm Darian Baljit [facility] 08-16-2020 22:18-0500 BP Diastolic 56 mm[Hg] Darian Baljit [facility] 08-16-2020 22:18-0500 BP Systolic 107 mm[Hg] Darian Baljit [facility] 08-16-2020 22:18-0500 Pulse (Heart Rate) 96 /min Darian Baljit [facility] 08-16-2020 22:18-0500 Pulse Oximetry 95 % Darian Baljit [facility] 08-16-2020 22:18-0500 Respiratory Rate 18 /min [facility] Baljit [facility] 08-16-2020 15:38-0500 BMI (Body Mass Index) 28.3 kg/m2 [facility] Baljit [facility] 08-16-2020 15:38-0500 Body Temperature 97.4 [degF] [facility] Baljit [facility] 08-16-2020 15:38-0500 Body weight 72.57 kg [facility] Baljit [facility] 08-16-2020 15:38-0500 Height 160.02 cm [facility] Baljit [facility] 07-26-2020 01:57-0500 BP Diastolic 58 mm[Hg] Darian Baljit [facility] 07-26-2020 01:57-0500 BP Systolic 118 mm[Hg] Darian Baljit [facility] 07-26-2020 01:57-0500 Pulse (Heart Rate) 59 /min Darian Baljit [facility] 07-26-2020 01:57-0500 Pulse Oximetry 97 % Darian Baljit [facility] 07-26-2020 01:57-0500 Respiratory Rate 16 /min Darian Baljit [facility] 07-26-2020 00:44-0500 BMI (Body Mass Index) 30.5 kg/m2 [facility] Baljit [facility] 07-26-2020 00:44-0500 Body Temperature 98.4 [degF] [facility] 07-26-2020 00:44-0500 Body weight 75.74 kg [facility] Baljit [facility] 07-26-2020 00:44-0500 Height 157.48 cm [facility] Baljit [facility] 07-22-2020 22:23-0500 BP Diastolic 63 mm[Hg] [facility] Baljit [facility] 07-22-2020 22:23-0500 BP Systolic 131 mm[Hg] [facility] Baljit [facility] 07-22-2020 22:23-0500 Pulse (Heart Rate) 60 /min [facility] Baljit [facility] 07-22-2020 22:23-0500 Pulse Oximetry 98 % [facility] Baljit [facility] 07-22-2020 22:23-0500 Respiratory Rate 18 /min [facility] Baljit [facility] 07-22-2020 17:54-0500 BMI (Body Mass Index) 31.8 kg/m2 [facility] Baljit [facility] 07-22-2020 17:54-0500 Body Temperature 98 [degF] [facility] Baljit [facility] 07-22-2020 17:54-0500 Body weight 78.9 kg [facility] Baljit [facility] 07-22-2020 17:54-0500 Height 157.48 cm [facility] Baljit [facility] 07-19-2020 10:11-0500 BP Diastolic 60 mm[Hg] [facility] Baljit [facility] 07-19-2020 10:11-0500 BP Systolic 138 mm[Hg] [facility] Baljit [facility] 07-19-2020 10:11-0500 Pulse (Heart Rate) 94 /min Darian Baljit [facility] 07-19-2020 10:11-0500 Pulse Oximetry 98 % [facility] 07-19-2020 10:11-0500 Respiratory Rate 16 /min [facility] Baljit [facility] 07-19-2020 07:25-0500 BMI (Body Mass Index) 30.9 kg/m2 [facility] Baljit [facility] 07-19-2020 07:25-0500 Body Temperature 98 [degF] [facility] Baljit [facility] 07-19-2020 07:25-0500 Body weight 76.7 kg [facility] Baljit [facility] 07-19-2020 07:25-0500 Height 157.48 cm [facility] Baljit [facility] 06-15-2020 21:00-0400 Body Temperature 98.1 [degF] [facility] Baljit [facility] 06-15-2020 21:00-0400 BP Diastolic 77 mm[Hg] [facility] Baljit [facility] 06-15-2020 21:00-0400 BP Systolic 124 mm[Hg] [facility] Baljit [facility] 06-15-2020 21:00-0400 Pulse (Heart Rate) 61 /min [facility]arian [facility] 06-15-2020 21:00-0400 Pulse Oximetry 96 % Dariandebbie Smiley [facility] 06-15-2020 21:00-0400 Respiratory Rate 16 /min [facility] Baljit [facility] 06-15-2020 17:00-0400 BMI (Body Mass Index) 30.9 kg/m2 [facility] Baljit [facility] 06-15-2020 17:00-0400 Body weight 76.7 kg [facility] 06-15-2020 17:00-0400 Height 157.48 cm [facility] Baljit [facility] 06-07-2020 17:00-0400 Body Temperature 97.2 [degF] [facility] 06-07-2020 17:00-0400 BP Diastolic 71 mm[Hg] [facility] Ninisanjanamonate [facility] 06-07-2020 17:00-0400 BP Systolic 104 mm[Hg] [facility] 06-07-2020 17:00-0400 Pulse (Heart Rate) 60 /min [facility] 06-07-2020 17:00-0400 Pulse Oximetry 98 % [facility] 06-07-2020 17:00-0400 Respiratory Rate 14 /min [facility] 06-07-2020 06:56-0400 Body weight 84.1 kg [facility] 06-05-2020 14:28-0400 Height 157.48 cm [facility] 06-05-2020 06:29-0400 BMI (Body Mass Index) 32.8 kg/m2 [facility] Encounters Encounter Date Encounter Type Care Provider Facility Start: 09-22-2023 End: 09-22-2023 ambulatory Amanda Grace Other [facility] Other Start: 09-22-2023 Telephone encounter Amanda Herzog [facility] Start: 09-03-2023 ambulatory MARGARETH [facility] Start: 09-02-2023 End: 09-03-2023 [facility] Start: 09-02-2023 End: 09-02-2023 Subsequent hospital visit by physician [facility] Comment on above: ICD (implantable car dioverter-defibrillator) battery depletion Start: 08-31-2023 End: 08-31-2023 ambulatory Amanda Grace Other [facility] Other Start: 08-31-2023 Telephone encounter Amanda Herzog her [facility] Start: 08-09-2023 End: 08-09-2023 ambulatory Amanda Stuartbraulio Facility:[facility] Start: 08-09-2023 End: 08-09-2023 Patient encounter procedure MEDICAL DELIVERY TECHNICIANPritesh Patel Sanjay Work Phone: [facility] Start: 08-09-2023 End: 08-09-2023 ambulatory PETE Patel Sanjay Work Phone: [facility] Work Phone: Comment on above: Persistent atrial fi brillation (HCC) (Primary Dx) Start: 08-02-2023 End: 08-02-2023 ambulatory Amanda Grace Other [facility] Other Start: 08-02-2023 Telephone encounter Amanda Herzog her [facility] Start: 07-28-2023 Telephone encounter David Osei MD Work Phone: Cardiology Start: 07-25-2023 Follow-up encounter David Osei MD Work Phone: [facility] Start: 07-25-2023 ICD Remote F/U David fairbanks MD Work Phone: [facility] Department Start: 07-07-2023 ambulatory Arjun EPPS Facility : [facility] Start: 06-04-2023 ambulatory Arjun EPPS Facility : [facility] Start: 06-03-2023 ambulatory Arjun EPPS Facility:[facility] Start: 04-30-2023 Follow-up encounter David Osei MD Work Phone: [facility] Start: 04-30-2023 ICD Remote F/U David fairbanks MD Work Phone: [facility] Start: 04-17-2023 Follow-up encounter David Osei MD Work Phone: [facility] Start: 04-17-2023 ICD Remote F/U David fairbanks MD Work Phone: [facility] Start: 04-05-2023 Follow-up encounter David Osei MD Work Phone: [facility] Start: 04-05-2023 ICD Remote F/U David fairbanks MD Work Phone: [facility] Start: 03-29-2023 Rx Renewal Shaikh Crystal Work Phone: [facility] DO Work Phone: Start: 03-24-2023 Follow-up encounter David Osei MD Work Phone: [facility] Start: 03-24-2023 ICD Remote F/U David fairbanks MD Work Phone: [facility] Start: 03-20-2023 Follow-up encounter David Osei MD Work Phone: [facility] Start: 03-20-2023 ICD Remote F/U David fairbanks MD Work Phone: [facility] Start: 03-15-[address] Margareth Johnson acility: Start: 02-28-2023 Follow-up encounter David Osei MD Work Phone: [facility] Start: 02-28-2023 ICD Remote F/U David fairbanks MD Work Phone: [facility] Start: 02-25-2023 Follow-up encounter David Osei MD Work Phone: [facility] Start: 02-25-2023 ICD Remote F/U David fairbanks MD Work Phone: [facility] Start: 01-28-2023 AUDIT Roy Fawwad Work Phone: [facility] DO Work Phone: Start: 01-27-2023 End: 01-27-2023 ambulatory ROY H FAWWAD Facility:[facility] Start: 01-26-2023 Rx Renewal Roy Fawwad Work Phone: [facility] DO Work Phone: Start: 01-03-2023 End: 01-03-2023 ambulatory ROY H FAWWAD Facility:[facility] Start: 12-28-2022 End: 01-27-2023 ambulatory ROY H FAWWAD Facility:[facility] Start: 11-30-2022 End: 12-25-2022 ambulatory ROY H FAWWAD Facility:[facility] Start: 11-25-2022 Follow-up encounter David Osei MD Work Phone: [facility] Start: 11-25-2022 ICD Remote F/U David fairbanks MD Work Phone: [facility] Start: 10-28-2022 End: 11-27-2022 ambulatory ROY H FAWWAD Facility:[facility] Start: 10-26-2022 End: 10-27-[address] Juan Miguel FONTENOT Facility:[facility] Start: 10-23-2022 Letter encounter Anju Cuevas DMD Work Phone: [facility] Start: 10-06-2022 End: 10-07-2022 ambulatory ROY H FAWWAD Facility:[facility] Start: 09-30-2022 End: 10-28-2022 ambulatory ROY H FAWWAD Facility:[facility] Start: 09-11-2022 Telephone encounter Julio bernardinator Work Phone: Cardiology Comment on above: Research (IRB [phone] TRIM-AF) Start: 08-31-2022 End: 09-30-2022 ambulatory ROY H FAWWAD Facility:[facility] Start: 08-17-2022 Follow-up encounter David Osei MD Work Phone: [facility] Start: 08-17-2022 ICD Remote F/U David fairbanks MD Work Phone: [facility] Department Start: 07-30-2022 End: 08-30-2022 ambulatory ROY H FAWWAD Facility:[facility] Start: 07-27-2022 ambulatory Britta Tang MA [facility] Comment on above: Opened In Error Start: 06-30-2022 End: 07-29-2022 ambulatory ROY H FAWWAD Facility:H1 Start: 06-29-2022 Other Shaikh Chivoalexwad Work Phone: [facility] DO Work Phone: Start: 06-29-2022 Follow-up encounter David Osei MD Work Phone: [facility] Start: 06-29-2022 ICD Remote F/U David fairbanks MD Work Phone: [facility] Department Start: 05-31-2022 End: 06-29-2022 ambulatory ROY H FAWWAD Facility:H1 Start: 05-28-2022 Follow-up encounter David Osei MD Work Phone: [facility] Start: 05-28-2022 ICD Remote F/U David fairbanks MD Work Phone: [facility] Department Start: 05-25-2022 ambulatory Ms. Inna Russell Facility: Start: 05-06-2022 Patient encounter procedure Shaikh Mallorywad Work Phone: [facility] 250 DO Work Phone: Start: 04-30-2022 End: 05-30-2022 ambulatory ROY Shawna FAAlexWAD Facility:H1 Start: 04-24-[address] Margareth Jhonson acility: Start: 04-24-2022 Current tobacco non-user cad cap copd pv dm Shaikh Mallorywad Work Phone: [facility] DO Work Phone: Start: 04-23-2022 End: 04-24-2022 ambulatory SHAIKH Shawna VÁZQUEZWAD Facility:H1 Start: 04-16-2022 End: 04-17-2022 ambulatory SHAIKH Shawna NOD Facility:H1 Start: 04-09-2022 Follow-up encounter David Osei MD Work Phone: [facility] Start: 04-09-2022 ICD Remote F/U David fairbanks MD Work Phone: [facility] Department Start: 04-07-2022 Telephone encounter No PCP None [facility] DO Work Phone: Start: 03-30-2022 End: 04-29-2022 ambulatory SHAIKH Shawna VÁZQUEZWAD Facility:H1 Start: 03-24-[address] Nadir Hoskins Facility: Start: 03-12-2022 Rx Renewal No PCP None [facility] DO Work Phone: Start: 03-02-2022 End: 03-27-2022 ambulatory ROY H CHIVOWWAD Facility:H1 Start: 02-24-2022 Telephone encounter No PCP None [facility] DO Work Phone: Start: 02-18-2022 Rx Renewal No PCP None [facility] DO Work Phone: Start: 02-17-2022 Patient encounter procedure No PCP None [facility] DO Work Phone: Start: 01-22-2022 Chart Update No PCP None [facility] [address] [place] Work Phone: Start: 01-08-2022 Follow-up encounter David Osei MD Work Phone: [facility] Start: 01-08-2022 ICD Remote F/U David fairbanks MD Work Phone: [facility] Department Start: 01-07-2022 AUDIT No PCP None -[place] [facility] DO Work Phone: Start: 12-31-2021 End: 12-31-2021 ambulatory Jeane Fitt Other Prized Other Start: 12-31-2021 Telephone encounter Jeane Juan [facility] Start: 12-26-2021 End: 12-26-2021 ambulatory Jeane Fitt Other [facility] Other Start: 12-26-2021 Telephone encounter Jeane Juan [facility] Start: 12-23-2021 ([facility] R A/c) [facility] Repeat A/C Jeane Juan [facility] Start: 12-23-2021 End: 12-23-2021 ambulatory Jeane Fitt Other [facility]zed Other Start: 12-17-2021 (Repeat [facility]) Jeane Juan [facility]t [facility] Start: 12-17-2021 End: 12-17-2021 ambulatory Jeane Fitt Other [facility]zed Other Start: 12-17-2021 Telephone encounter Jeane Juan [facility] Start: 12-12-2021 AUDIT No PCP None [facility] DO Work Phone: Start: 12-11-2021 End: 12-11-2021 ambulatory Jeane Fitt Other [facility]zed Other Start: 12-11-2021 Telephone encounter Jeane Juan [facility] Start: 12-10-2021 (Repeat [facility]) Jeane Juan [facility] Start: 12-10-2021 End: 12-10-2021 ambulatory Jeane Fitt Other Prized Other Start: 12-05-2021 Current tobacco non-user cad cap copd pv dm No PCP None [facility] DO Work Phone: Start: 11-26-2021 End: 11-26-2021 ambulatory Jeane Fitt Other [facility]zed Other Start: 11-26-2021 Telephone encounter Jeane Juan [facility] Start: 11-19-2021 (Repeat [facility]) Jeane Juan [facility] Start: 11-19-2021 End: 11-19-2021 ambulatory Jeane Fitt Other [facility] Other Start: 11-19-2021 Telephone encounter Jeane Juan [facility] Start: 11-18-2021 End: 11-18-2021 ambulatory Jeane Fitt Other [facility] Other Start: 11-18-2021 Telephone encounter Jeane Juan [facility] Start: 11-11-2021 ([facility] R A/c) [facility] Repeat A/C Jeane Juan [facility] Start: 11-11-2021 End: 11-11-2021 ambulatory Jeane Fitt Other [facility] Other Start: 11-10-2021 End: 11-10-2021 ambulatory Jeane Fitt Other [facility] Other Start: 11-10-2021 Telephone encounter Jeane Juan [facility] Start: 11-05-2021 (Repeat [facility]) Jeane Juan [facility] Start: 11-05-2021 End: 11-05-2021 ambulatory Jeane Fitt Other [facility] Other Start: 11-03-2021 End: 11-03-2021 ambulatory Jeane Fitt Other [facility] Other Start: 11-03-2021 Telephone encounter Jeane Fitt [facility] Start: 10-30-2021 End: 10-30-2021 ambulatory Jeane Fitt Other [facility]zed Other Start: 10-30-2021 Telephone encounter Jeane Fitt [facility] Start: 10-29-2021 (Repeat [facility]) Jeane Juan [facility]t [facility] Start: 10-29-2021 End: 10-29-2021 ambulatory Jeane Fitt Other [facility] Other Start: 10-29-2021 Telephone encounter Jeane Juan [facility] Start: 10-23-2021 (Repeat [facility]) Jeane Jania [facility] Start: 10-23-2021 End: 10-23-2021 ambulatory Jeane Fitt Other [facility] Other Start: 10-22-2021 Patient encounter procedure Nadir Hoskins DO Work Phone: [facility] DO Work Phone: Start: 10-13-2021 Evaluation and management of inpatient DO Darian Smiley Work Phone: [facility] Start: 09-09-2021 End: 09-09-2021 ambulatory Jeane Fitt Other [facility] Other Start: 09-09-2021 Telephone encounter Jeane Juan [facility] Start: 09-04-2021 ([facility] R A/c) [facility] Repeat A/C Jeane Fitt [facility] Start: 09-04-2021 End: 09-04-2021 ambulatory Jeane Fitt Other [facility] Other Start: 09-04-2021 Telephone encounter Jeane Juan [facility] Start: 09-04-2021 Registered Recurring DO Sena Smiley Work Phone: [facility] Start: 08-04-2021 End: 08-04-2021 ambulatory Jeane Fitt Other [facility]zed Other Start: 08-04-2021 Telephone encounter Jeane Juan [facility]t [facility] Start: 07-28-2021 Patient encounter procedure Nadir Hoskins DO Work Phone: [facility] DO Work Phone: Start: 07-17-2021 ([facility] R A/c) [facility] Repeat A/C Jeane Juan [facility] Start: 07-17-2021 End: 07-17-2021 ambulatory Jeane Fitt Other [facility] Other Start: 06-30-2021 ([facility] R A/c) [facility] Repeat A/C Jeane Fitt [facility] Start: 06-30-2021 End: 06-30-2021 ambulatory Jeane Fitt Other [facility] Other Start: 06-20-2021 Telephone encounter Jeane Juan [facility] Start: 06-09-2021 ([facility] R A/c) [facility] Repeat A/C Jeane Fitt [facility] Start: 11-23-2020 End: 11-25-2020 Evaluation and management of inpatient Darian Itzkowitz -[facility] Start: 09-17-2020 Registered Recurring Darian Itzkowi tz [facility] Start: 08-16-2020 End: 08-17-2020 Evaluation and management of inpatient Darian Itzkowitz -[facility] Start: 08-05-2020 Registered Recurring Darian Itzkowi tz [facility] Start: 07-26-2020 End: 07-26-2020 Emergency department patient visit Darian Itzkowitz -Emergency Room Start: 07-22-2020 End: 07-22-2020 Emergency department patient visit Darian Itzkowitz -Emergency Room Start: 07-19-2020 End: 07-19-2020 Emergency department patient visit Darian Itzkowitz -Emergency Room Start: 06-15-2020 End: 06-15-2020 Evaluation and management of inpatient Darian Itzkowitz -4 [facility] Start: 06-05-2020 End: 06-07-2020 Evaluation and management of inpatient Darian Itzkowitz -[facility] Start: 11-08-2019 ambulatory [facility] Start: 10-12-2018 End: 10-12-2018 Patient encounter procedure MARGARETH MAYRA Facility:[facility] Start: 10-07-2018 Patient encounter procedure JAMEEL VALENZUELA Facility:7 Start: 08-04-2018 End: 08-05-2018 Patient encounter procedure MARGARETH MAYRA Facility:[facility] Start: 08-02-2018 Patient encounter procedure AGUILA VASQUEZ Facility:[id number] Start: 06-27-2018 End: 07-01-2018 Evaluation and management of inpatient MARGARETH MAYRA Facility:[facility] Start: 05-12-2018 End: 05-12-2018 Patient encounter procedure MARGARETH MAYRA Facility:[facility] Start: 11-29-2003 Evaluation and management of inpatient Darian Itzkowitz -[facility] Patient encounter status No PCP None -[facility] DO Work Phone: Procedures Date Procedure Procedure Detail Performing Clinician Start: 09-03-2023 ELECTROPHYSIOLOGY PROCEDURE MARGARETH NUNEZ Start: 09-02-2023 CASE REQUEST EP LAB JAMEEL VALENZUELA Start: 09-02-2023 CARDIAC DEVICE CHECK - IN CLINIC MARGARETH IRIS GONZALEZ Start: 09-02-2023 Prgrmg eval implantable in prsn [...] Work Phone: Start: 02-25-2023 ICD REMOTE CHECK aDvid Osei MD Work Phone: Start: 11-25-2022 ICD [...] and B virus antigen assay DO Darian Itzkowitz Work Phone: Start: 10-13-2021 CT of abdomen and pelvis without contrast DO Darian Itzkowitz Work Phone: Start: 10-13-2021 Plain chest X-ray DO Darian Itzkowitz Work Phone: Start: 11-25-2020 Esophagogastroduodenoscopy Darian Itzko witnehal Start: 11-24-2020 End: 11-24-2020 Screening for occult blood in feces Anthony parth Itzkowinate Start: 11-23-2020 Plain chest X-ray Darian Itzkowitz Start: 11-23-2020 SARS Antigen (LFIA) Darian Itzkowitz Start: 11-23-2020 Urine culture Dairan Itzkowitz Start: 08-17-2020 Lipid 1996 panel - Serum or Plasma David Osei MD Work Phone: Start: 08-16-2020 Plain chest X-ray Darian Itzkowitz Start: 08-16-2020 Bacteria identified Cx Nom (U) Darian I tzkowitz Start: 08-16-2020 Respiratory Panel (PCR) Darian Itzkowit z Start: 07-26-2020 Plain chest X-ray Darian Itzkowitz Start: 07-22-2020 Plain chest X-ray Darian Itzkowitz Start: 07-22-2020 SARS Antigen (LFIA) Darian Itzkowitz Start: 07-19-2020 Urine culture Darian Itzkowitz Start: 07-19-2020 Plain chest X-ray Darian Itzkowitz Start: 06-15-2020 Respiratory Panel (PCR) Darian Itzkowit z Start: 06-15-2020 Plain chest X-ray Darian Itzkowitz Start: 06-04-2020 Plain chest X-ray Darian Baljit Start: 11-08-2019 extraction, erupted tooth or exposed root (elevation and/or forceps removal) UNKNOWN PROVIDER Start: 08-30-2011 Total colonoscopy Nadir Hoskins DO Work Phone: Adenoid excision Nadir lawrence DO Work Phone: Appendectomy Nadir Hoskins DO Work Phone: Catheter ablation of arrhythmogenic focus Nadir Hoskins DO Work Phone: section No PCP None Cholecystectomy Nadir ricks DO Work Phone: Coronary artery bypass graft Nadir Hoskins DO Work Phone: History of coronary artery [...] (3 - PPSV23 if available, else PCV20) [facility] Start: 2034 PNEUMOCOCCAL (3 - PP SV23 or PCV20) PNEUMOCOCCAL (3 - PPSV23 or PCV20) [facility] Start: 2034 Pneumococcal vaccination [facility] Start: 2034 Pneumococcal Vaccine : Pediatrics (0 to 5 Years) and At-Risk Patients (6 to 64 Years) (3 - PPSV23 or PCV20) Pneumococcal Vaccine: Pediatrics (0 to 5 Years) and At-Risk Patients (6 to 64 Years) (3 - PPSV23 or PCV20) [facility] Start: 08-17-2025 Lipid 1996 panel - S daisy or Plasma Lipid Screening [facility] Start: 08-17-2025 LIPID SCREEN LIPID SCREEN [facility] Start: 08-30-2024 Cholesterol [Mass/vo lume] in Serum or Plasma Cholesterol [place] Start: 03-19-2024 DIABETES SCREEN DIABETES SCREEN [place] Start: 03-19-2024 Diabetes Screening Diabetes Screenjaneth malone [facility] Start: 09-29-2023 End: 09-29-2023 Admission to same day surgery center 09/29/2023 2:00 PM EST - 09/29/2023 4:[address] [facility] [address] [place] [facility] [place] [address] Margareth Nunez MD [address] [address] ICD BIV Generator Change Out [26323 (CPT )] [facility] Comment on above: ICD BIV Generator Ch cecily Out [29839 (CPT )] Start: 09-29-2023 Subsequent hospital visit by physician 09/29/2023 2:00 PM EST Hospital Encounter [facility] [address] [place] [address] Margareth Nunez MD [address] [address] Biventricular implantable cardioverter-defibrilla tor (ICD) in situ; Elective replacement of implantable cardioverter-defibrilla tor (ICD) battery required [facility] Comment on above: Biventricular implan table cardioverter-defibrillator (ICD) in situ; Elective replacement of implantable cardioverter-defibrillator (ICD) battery required Start: 09-09-2023 End: 12-09-2023 Basic metabolic 2000 panel - Serum or Plasma BASIC METABOLIC PNL Lab Routine Persistent atrial fibrillation (HCC) Expected: 09/09/2023 (Approximate), Expires: 12/09/2023 [facility] Work Phone: Comment on above: Expected: 09/09/2023 (Approximate), Expires: 12/09/2023 Start: 09-09-2023 End: 12-09-2023 CBC panel - Blood by Automated count CBC Lab Routine Persistent atrial fibrillation (HCC) Expected: 09/09/2023 (Approximate), Expires: 12/09/2023 [facility] Work Phone: Comment on above: Expected: 09/09/2023 (Approximate), Expires: 12/09/2023 Start: 09-09-2023 End: 12-09-2023 CONFIRM BLOOD TYPE CONFIRM BLOOD TYPE Blood Bank Routine Persistent atrial fibrillation (HCC) Expected: 09/09/2023 (Approximate), Expires: 12/09/2023 [facility] Work Phone: Comment on above: Expected: 09/09/2023 (Approximate), Expires: 12/09/2023 Start: 09-09-2023 End: 12-09-2023 TYPE AND SCREEN,30 DAY TYPE AND SCREEN,30 DAY Blood Bank Routine Persistent atrial fibrillation (HCC) Expected: 09/09/2023 (Approximate), Expires: 12/09/2023 [facility] Work Phone: Comment on above: Expected: 09/09/2023 (Approximate), Expires: 12/09/2023 Start: 04-30-2023 Covid-19 Vaccine ( season) Covid-19 Vaccine ( season) [facility] Start: 04-30-2023 Influenza vaccination C [facility] Start: 03-15-2023 FUV, Provider: Margareth Nunez, Status: Pen, Time: 1:40 PM FUV, Provider: Margareth Nunez, Status: Pen, Time: 1:40 PM [facility] 250 DO Work Phone: Start: 11-14-2022 Echocardiography Echocardiogram [facility] Start: 10-27-2022 FUV, Provider: Margareth Nunez, Status: Pen, Time: 3:00 PM FUV, Provider: Margareth Nunez, Status: Pen, Time: 3:00 PM [facility] DO Work Phone: Start: 05-30-2022 Influenza vaccination Influenza Vacc ine (#1) [place] Start: 05-25-2022 FUV, Provider: Inna Jesus, Status: Pen, Time: 1:30 PM FUV, Provider: Inna Jesus, Status: Pen, Time: 1:30 PM [facility] DO Work Phone: Start: 05-20-2022 BP CONTROLLED (<130/80) BP CONTROLLE D (<130/80) [facility] Start: 04-30-2022 Influenza vaccination C [facility] Start: 04-24-2022 FUV, Provider: Margareth Nunez, Status: Pen, Time: 1:20 PM FUV, Provider: Margareth Nunez, Status: Pen, Time: 1:20 PM -[facility] [address] [place] Work Phone: Start: 04-15-2022 FUV, Provider: Inna Jesus, Status: Pen, Time: 4:00 PM FUV, Provider: Inna Jesus, Status: Pen, Time: 4:00 PM [facility] DO Work Phone: Start: 03-25-2022 FUV, Provider: Inna Jesus, Status: Pen, Time: 8:00 AM FUV, Provider: Inna Jesus, Status: Pen, Time: 8:00 AM [facility] DO Work Phone: Start: 03-12-2022 Diabetes mellitus screening Diabetes Screening [facility] Start: 02-23-2022 FUV, Provider: Inna Jesus, Status: Pen, Time: 8:00 AM FUV, Provider: Inna Jesus, Status: Pen, Time: 8:00 AM -[facility] DO Work Phone: Start: 01-21-2022 [facility], Provider: Margareth Nunez, Status: Pen, Time: 9:00 AM [facility], Provider: Margareth Nunez, Status: Pen, Time: 9:00 AM -[facility] DO Work Phone: Start: 01-20-2022 [facility], Provider: Soco Bhardwaj, Status: Pen, Time: 8:00 AM [facility], Provider: Soco Bhardwaj, Status: Pen, Time: 8:00 AM [facility] DO Work Phone: Start: 12-31-2021 EP ABLAT, Provider: [facility] OPERATOR [id number], Status: Pen, Time: 11:00 AM EP ABLAT, Provider: [facility] OPERATOR 5,[id number], Status: Pen, Time: 11:00 AM [facility] DO Work Phone: Start: 12-31-2021 [facility], Provider: Soco Bhardwaj, Status: Pen, Time: 11:00 AM [facility], Provider: Soco Bhardwaj, Status: Pen, Time: 11:00 AM [facility] DO Work Phone: Start: 12-31-2021 [facility], Provider: Margareth Nunez, Status: Pen, Time: 8:00 AM [facility], Provider: Margareth Nunez, Status: Pen, Time: 8:00 AM [facility] DO Work Phone: Start: 12-31-2021 JOVITA, Provider: [facility] 1,[id number], Status: Pen, Time: 8:00 AM JOVITA, Provider: [facility] [employer] OPERATOR 1,[id number], Status: Pen, Time: 8:00 AM [facility] DO Work Phone: Start: 11-19-2021 FUV, Provider: Nadir Hoskins, Status: Pen, Time: 9:20 AM FUV, Provider: Nadir Hoskins, Status: Pen, Time: 9:20 AM [facility] DO Work Phone: Start: 10-29-2021 FUV, Provider: Inna Jesus, Status: Pen, Time: 2:30 PM FUV, Provider: Inna Jesus, Status: Pen, Time: 2:30 PM -[facility] DO Work Phone: Start: 10-13-2021 Bacteria identified in Blood by Culture Blood Culture [facility] Start: 10-13-2021 Bacteria identified in Urine by Culture Urine Culture [facility] Start: 08-17-2021 Hepatitis B surface antibody level LDL CHOLESTEROL [facility] Start: 05-11-2021 COVID-19 VACCINE (3 - Booster for Pfizer series) COVID-19 VACCINE (3 - Booster for Pfizer series) [facility] Start: 02-03-2021 COVID-19 VACCINE (3 - Booster for Pfizer series) COVID-19 VACCINE (3 - Booster for Pfizer series) [facility] Start: 02-03-2021 COVID-19 VACCINE (3 - Pfizer series) COVID-19 VACCINE (3 - Pfizer series) [facility] Start: 2019 Measurement of occul t blood in single stool specimen FIT [place] Start: 2019 Screening for malign ant neoplasm of colon CRC Screening [place] Start: 2019 Shingles (RZV) Vacci ne (1 of 2) Shingles (RZV) Vaccine (1 of 2) [place] Start: 2019 SHINGRIX VACCINE (1 of 2) DEL CID GRIX VACCINE (1 of 2) [facility] Start: 2019 Zoster Vaccines (1 of 2) Zoste r Vaccines (1 of 2) [facility] Start: 2014 COLOGUARD (FIT-DNA) COLOGUARD (FIT-D NA) [facility] Start: 2014 Colonoscopy COLONOSCOPY [facility] Start: 2014 COLORECTAL CANCER SCREENING COLORECTAL CANCER SCREENING [facility] Start: [address] COLONOGRAPHY [place] Start: 2014 FECAL OCCULT BLOOD FECAL OCCULT BLOO D [facility] Start: 2014 SIGMOIDOSCOPY SIGMOIDOSCOPY [facility] Start: 02-06-2013 DTaP/Tdap/Td Vaccine s (1 - Tdap) DTaP/Tdap/Td Vaccines (1 - Tdap) [facility] Start: 02-06-2013 Urine microalbumin profile [facility] Start: 2009 Mammography [facility] Start: 2009 Screening for malign ant neoplasm of breast [facility] Start: 1999 HPV TESTING HPV TESTING [facility] Start: 1990 PAP TESTING PAP TESTING [facility] Start: 1990 Screening for malign ant neoplasm of cervix [facility] Start: 1987 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 SPECIALIST RAMONA DISEASE VISIT ANNUAL PCP TEAM CHRONIC DISEASE VISIT [facility] Start: 1987 BP CONTROLLED (<130/80) BP CONTROLLE D (<130/80) [facility] Start: 1987 HEPATITIS C SCREENING HEPATITIS C SC REENING [facility] Start: 1987 Hepatitis C screening M [facility] Start: 1987 HIV SCREENING HIV SCREENING [facility] Start: 1987 SPIROMETRY SPIROMETRY [facility] Start: 1987 Tetanus + diphtheria + acellular pertussis vaccine (product) Tdap Booster [place] Start: 1984 HIV screening HIV Test [facility] Start: 1970 MMR Vaccines (1 of 1 - Standard series) MMR Vaccines (1 of 1 - Standard series) [facility] Start: 1969 Creatinine measurement Creatinine Le mahi [facility] Start: 1969 Ejection Fraction Ejection Fraction [place] Start: 1969 HEPATITIS B (1 of 3 - 3-dose series) HEPATITIS B (1 of 3 - 3-dose series) [facility] Start: 1969 Hepatitis B Vaccine (1 of 3 - 3-dose series) Hepatitis B Vaccine (1 of 3 - 3-dose series) [facility] Start: 1969 Hepatitis B Vaccines (1 of 3 - 3-dose series) Hepatitis B Vaccines (1 of 3 - 3-dose series) [facility] Start: 1969 HIV screening HIV Screening [facility] Start: 1969 Lipid panel Lipid Panel [facility] Start: 1969 Medicare Annual Well ness Visit Medicare Annual Wellness Visit (AWV) [facility] Start: 1969 Potassium measurement Potassium Leve l [facility] Start: 1969 Screening for malign ant neoplasm of colon [place] Start: 1969 Thyroid stimulating hormone measurement TSH Level [facility] aPTT in Platelet poo r plasma by Coagulation assay [facility] Bacteria identified in Blood by Culture [facility] Bacteria identified in Urine by Culture [facility] Basophil count [facility] Basophil percent differential count [facility] Calcium [Mass/volume ] in Serum or Plasma [facility] Carbon dioxide, tota l [Moles/volume] in Serum or Plasma [facility] Cardiac Device Check - In Clinic Cardiac Device Check - In Clinic Implantable Cardiac Device Routine ICD (implantable cardioverter-defibrilla tor) battery depletion 09/02/2023 1:53 PM EST [facility] Service Area Work Phone: Chloride [Moles/volu me] in Serum or Plasma [facility] Creatinine and Glome rular filtration rate.predicted panel - Serum, Plasma or Blood [facility] Eosinophil percent differential count [facility] Eosinophils [#/volum e] in Blood [facility] Erythrocyte mean corpuscular volume determination [facility] Erythrocytes [#/volu me] in Blood [facility] Glucose [Mass/volume ] in Serum or Plasma [facility] Hematocrit [Volume Fraction] of Blood [facility] Hemoglobin [Mass/vol ume] in Blood [facility] Hemoglobin distribut ion, width determination [facility] ICD BIV GENERATOR CH CECILY OUT ICD BIV GENERATOR CHANGE OUT Biventricular implantable cardioverter-defibrilla tor (ICD) in situ Elective replacement of implantable cardioverter-defibrilla tor (ICD) battery required [facility] Work Phone: INR in Platelet poor plasma by Coagulation assay [facility] Leukocytes [#/volume ] in Blood [facility] Lymphocyte count [facility] Lymphocyte percent differential count [facility] Magnesium measurement [facility] Mean corpuscular hemoglobin concentration determination [facility] Mean corpuscular hemoglobin determination [facility] Measurement of renal function [facility] Monocyte count [facility] Monocyte percent differential count [facility] Neutrophil count [facility] Neutrophil percent differential count [facility] Patient Education [facility] Patient referral [facility] Platelet mean volume determination [facility] Platelets [#/volume] in Blood [facility] Potassium [Moles/vol ume] in Serum or Plasma [facility] End: 09-07-2024 Radiologic exam chest 2 views XR CHEST 2V FRONTAL/LAT Radiology Routine Persistent atrial fibrillation (HCC) 1 Occurrences starting 08/09/2023 until 09/07/2024 [facility] Work Phone: Comment on above: 1 Occurrences starti ng 08/09/2023 until 09/07/2024 Sodium [Moles/volume ] in Serum or Plasma [facility] Urea nitrogen [Mass/volume] in Serum or Plasma [facility] Immunizations Immunization Date Immunization Notes Care Provider Chivo bailey 12-09-2020 Pfizer-BioNTech COVID-19 Vacc 30 MCG/0.3ML Intramuscular Suspension Nadir Hoskins DO Work Phone: [facility] 11-18-2020 COVID-19 vaccine, ag e 12+ yr (PFIZER-BIONTECH - PURPLE TOP) David Osei MD Work Phone: [facility] 06-09-2020 pneumococcal polysaccharide vaccine, 23 valent David Osei MD Work Phone: [facility] 06-07-2020 influenza, seasonal, injectable David Osei MD Work Phone: [facility] 06-07-2020 influenza virus vaccine, unspecified formulation David Osei MD Work Phone: [facility] 06-06-2020 influenza, injectabl e, quadrivalent, preservative free Darian Itzkoj luis [facility] 06-06-2020 influenza virus vaccine, unspecified formulation Anju Cuevas DMD Work Phone: [place] 08-31-2019 Influenza, injectabl e, Madin Denise Canine Kidney, preservative free, quadrivalent Darian Itzkoj luis [facility] 08-30-2019 influenza virus vaccine, unspecified formulation Nadir Hoskins DO Work Phone: [facility] 250 DO Work Phone: 06-29-2018 influenza, injectabl e, quadrivalent, preservative free David Osei MD Work Phone: [facility] 06-27-2018 influenza virus vaccine, unspecified formulation Nadir Hoskins DO Work Phone: [facility] 250 DO Work Phone: 06-17-2018 influenza, injectabl e, quadrivalent, preservative free Jeane Juan Ft Other [facility] 05-10-2017 influenza, seasonal, injectable, preservative free David Osei MD Work Phone: [facility] 05-03-2017 influenza, injectabl e, quadrivalent, preservative free David Osei MD Work Phone: [facility] 04-30-2017 influenza virus vaccine, unspecified formulation Nadir Hoskins DO Work Phone: [facility] 250 DO Work Phone: 05-08-2016 pneumococcal conjuga te vaccine, 13 valent David Osei MD Work Phone: [facility] 04-30-2016 influenza virus vaccine, unspecified formulation Nadir Hoskins DO Work Phone: [facility] 250 DO Work Phone: 04-30-2016 pneumococcal conjuga te vaccine, 7 valent Nadir Hoskins DO Work Phone: [facility] 250 DO Work Phone: 04-24-2016 influenza, seasonal, injectable, preservative free David Osei MD Work Phone: [facility] 05-30-2015 influenza virus vaccine, unspecified formulation Nadir Hoskins DO Work Phone: [facility] 250 DO Work Phone: 09-18-2013 influenza virus vaccine, unspecified formulation Nadir Hoskins DO Work Phone: -[facility] 250 DO Work Phone: 02-05-2013 TD(adult) unspecifie d formulation David Osei MD Work Phone: [facility] 08-30-2011 pneumococcal polysaccharide vaccine, 23 valent Nadir Hoskins DO Work Phone: -[facility] 250 DO Work Phone: influenza virus vaccine, unspecified formulation Nadir Hoskins DO Work Phone: -[facility] DO Work Phone: Comment on above: 2008 2009 2010 2011 2012 pneumococcal polysaccharide vaccine, 23 valent Nadir Hoskins DO Work Phone: -[facility] [place] 250 DO Work Phone: Comment on above: 2008 Payers Date Payer Category Payer Private Health Insurance [facility] DUAL COMPLETE [facility] DUAL [facility] [id number] 2023-Present [address] [address] [place] [address] [id number] 2023 Self-pay [id number] 2020 Medicare UHC MEDICARE UHC DUAL COMPLETE HMO SNP [id number] 2020-Present [phone] [address] [place] [address] Medicare [id number] 2020 Medicare [id number]. [id number] 2020 Medicaid MEDICAID [facility] MEDICAID [id number] 2020-Present [phone] [address] [place] [address] Medicaid [id number] 2017 Private Health Insurance [id number] 2017 Unknown [id number] 2003 Medicaid [id number] [id number]. [id number] 1969 Unknown [id number] 2.16.840.1.286427.3.579.2. 355 1969 Unknown [id number] 2.16.840.1.307453.3.579.2. 355 1969 Unknown [id number] 2.16.840.1.751459.3.579.2. 355 1969 Unknown [id number] 2.16.840.1.619457.3.579.2. 355 1969 Unknown [id number] 2.16.840.1.894371.3.579.2. 355 1969 Unknown [id number] 2.16.840.1.412730.3.579.2. 355 1969 Unknown [id number] 2.16.840.1.756791.3.579.2. 732 1969 Unknown [id number] 2.16.840.1.106500.3.579.2. 593 1969 Unknown [id number] 2.16.840.1.587253.3.579.2. 593 1969 Unknown [id number] 2.16.840.1.072153.3.579.2. 593 1969 Unknown [id number] 2.16.840.1.365377.3.579.2. 593 1969 Unknown [id number] 2.16.840.1.087283.3.579.2. 593 1969 Unknown [id number] 2.16.840.1.149523.3.579.2. 593 1969 Unknown [id number] 2.16.840.1.857262.3.579.2. 593 1969 Unknown [id number] 2.16.840.1.909129.3.579.2. 593 1969 Unknown [id number] 2.16.840.1.856637.3.579.2. 593 1969 Unknown [id number] 2.16.840.1.956959.3.579.2. 593 1969 Unknown [id number] 2.16.840.1.111814.3.579.2. 593 1969 Unknown [id number] 2.16.840.1.921511.3.579.2. 593 1969 Unknown [id number] 2.16.840.1.789885.3.579.2. 593 1969 Unknown [id number] 2.16.840.1.532393.3.579.2. 593 1969 Unknown [id number] 2.16.840.1.388583.3.579.2. 593 1969 Unknown [id number] 2.16.840.1.376639.3.579.2. 593 1969 Unknown [id number] 2.16.840.1.746585.3.579.2. 593 1969 Unknown [id number] 2.16.840.1.222031.3.579.2. 356 1969 Unknown [id number] 2.16.840.1.612646.3.579.2. 356 1969 Unknown [id number] 2.16.840.1.168397.3.579.2. 356 1969 Unknown [id number] 2.16.840.1.158669.3.579.2. 356 1969 Unknown [id number] 2.16.840.1.986291.3.579.2. 727 1969 Unknown [id number] 2.16.840.1.564405.3.579.2. 727 1969 Unknown [id number] 2.16.840.1.391857.3.579.2. 727 1969 Unknown [id number] 2.16.840.1.762813.3.579.2. 1244 1969 Unknown [id number] 2.16.840.1.290811.3.579.2. 1246 1969 Unknown [id number] 2.16.840.1.357402.3.579.2. 1246 1959 Medicaid [id number] Medicare [id number] Medicare [id number] Unknown [id number] Unknown Unknown [id number] 2.16.840.1.922603.3.579.2. 531 Social History Date Type Detail Facility Start: 08-16-2020 End: 08-31-2023 Tobacco smoking status [facility] Ex-smoker (finding) [facility] Start: 1970 Sex Assigned At Female F [facility] Start: 05-20-2021 End: 09-02-2023 No illicit drug use No illicit drug use [facility] Work Phone: Comment on above: QUIT 02/2018; QUIT 02/2018 had res tarted then requit 08/2021; Start: 09-21-2019 End: 05-20-2021 Tobacco smoking status [facility] Smokes tobacco daily [facility] End: 08-30-2021 History of tobacco use Cigarette Smoker [facility] Start: 05-20-2021 End: 08-31-2023 Tobacco use and exposure Smokeless tobacco non-user [facility] Start: 05-20-2021 Alcohol intake Ex-drinker (finding) [facility] Start: 06-17-2020 History SDOH Financial 5 [facility] Start: 06-17-2020 History SDOH Food Worry 1 [facility] Start: 06-17-2020 History SDOH Transpo rt Med 2 [facility] Start: 02-24-2012 Tobacco Comment 5 cigarettes a day [facility] Start: 1970 Sex Assigned At Not on file C [facility] Start: 12-28-2021 End: 01-07-2022 Exposure to SARS-CoV-2 (event) Unable to assess [facility] Start: 05-20-2021 End: 09-02-2023 Sex Assigned At [facility] Work Phone: Start: 10-13-2021 End: 08-30-2021 Tobacco smoking status NHIS Smoker (finding) [facility] Start: 10-13-2021 Alcohol intake Current non-dr yardage estimator of alcohol (finding) [facility] How hard is it for y ou to pay for the very basics like food, housing, medical care, and heating Not hard at all [facility] Work Phone: (I/We) worried gissell er (my/our) food would run out before (I/we) got money to buy more. Never true [facility] Work Phone: Start: 09-02-2023 Alcohol intake Current drinke r of alcohol (finding) [facility] Work Phone: Start: 08-31-2023 Alcohol Comment rare [facility] Work Phone: Start: 08-23-2023 End: 09-02-2023 Exposure to SARS-CoV-2 (event) Not sure [facility] Medical Equipment Procedure Code Equipment Code Equipment Origin al Text Equipment Identifier Dates [place] Ptfe 1.2 Cm X 10 Cm - [id number] Start: 07-13-2012 Comment on above: Description: pledgets for suture line re inforcement Valve 27mm Therm afix Pericardi - [id number] Start: 07-13-2012 Comment on above: Description: Mitral valve replacement wi th 27 mm Cornell Lang tissue valve Valve Orquidea 3 Commander Lang 26mm Aortic Transcatheter Ultra Low - [id number] Start: 03-17-2021 Goals Date Patient Goal Desired Activity /State Functional Status Date Assessment Result Facility 11-25-2020 Functional status Patient at Baseline [facility] 11-23-2020 Functional status Patient at Baseline [facility] 08-17-2020 Functional status Patient at Baseline [facility] 08-17-2020 Functional status Disability Sta tus Patient at Baseline [facility] 06-15-2020 Functional status Patient at Baseline [facility] 06-05-2020 Functional status Patient at Baseline [facility] Mental Status Date Assessment Result Facility 11-25-2020 Cognitive function Cognitive Sta tus Patient at Baseline [facility] 11-23-2020 Cognitive function Cognitive Sta tus Patient at Baseline [facility] 08-17-2020 Cognitive function Cognitive Sta tus Patient at Baseline [facility] 06-15-2020 Cognitive function Cognitive Sta tus Patient at Baseline [facility] 06-05-2020 Cognitive function Cognitive Sta tus Patient at Baseline [facility] Clinical Notes 06-15-2020 to 09-22-2023 Note Date & Type Note Facility 09-22-2023 Evaluation note Encounter Date Diagnosis Assessment Notes Aug, Migraine without status migrainosus, not intractable, unspecified migraine type (ICD-10 - G43.909) last filled 07/27/2023 [employer] Other 01-24-2024 Evaluation note* Encounter Date Diagnosis Assessment Notes Treatment Notes Treatment Clinical Notes Aug, Migraine without status migrainosus, not intractable, unspecified migraine type (ICD-10 - G43.909) [facility] Other 01-02-2024 Evaluation note* Encounter Date Diagnosis Assessment Notes Treatment Notes Treatment Clinical Notes Aug, Generalized anxiety disorder (ICD-10 - F41.1) [facility] [employer] Other 11-29-2023 Miscellaneous Notes* Telephone Encounter - [...] was found in recent OP visit in [facility] note, left voicemail. [facility] NotePROCEDURE: XR HUMERUS RT MIN 2 [...] Electronically authenticated by: JC BRAVO Date: 2023-01-27 11:03[facility]05-31-2023 NotePROCEDURE: XR HUMERUS RT MIN 2 [...] Electronically authenticated by: JC BRAVO Date: 2023-01-27 11:03[facility]05-25-2022 NotePre-procedure Verification and Time Out: Pre-Procedure Verification [...] Findings: grossly normal anatomy Procedure performed by: Rifle Case Repairer(s): none Estimated Blood Loss (mL): none Specimen: [...] of infection. The patient should call the marketing outreach coordinator immediately if symptoms recur, or for any [...] Self-adhesive anterior-posterior defibrillation pads were applied. A ZOLL defibrillator was used for monitoring and the [...] right interatrial septum sites were mapped with [id number] electroanatomical activation mapping and entrainment mapping from both the right atrial catheter and the ablation catheter. An [employer] mapping system was used to create a 3D image of the right atrium and cavotricuspid isthmus. Mapping was performed during sinus rhythm and atrial pacing. 4. Catheter RF ablation. Applications were delivered via a generator to (more content not included)...[facility]05-25-2022 NoteHistory of Present Illness: /Lactating: Are You [...] - Surgical Update < 30 days 21-Jan-2022 12:47[facility]05-25-2022 NoteElectrophysiology Procedure TestingPlease click on the link to view the study images (Normal)[facility] [address] [place] Work Phone: 1(592) 352-280005-25-2022 NoteElectrophysiology Procedure Testing Please click on the link to view the study images (Normal)[facility] 250 DO Work Phone: 1(508) 272-188405-25-2022 NoteHistory & Physical Reviewed: /Lactating: Are You [...] From Patient Profile - Preop v3 21-Jan-2022 10:[address] [place], [place] [address]05-25-2022 NoteHistory of Present Illness: Admission Reason: Atrial [...] JOVITA/EPS/possible ablation. She is here today at [facility] for these procedures. Patient denies recent complaints [...] Flutter Plan for Imp[employer] (more content not included)...[facility] 12-23-2021 Evaluation note* Encounter Date Diagnosis Assessment Notes Treatment Notes Treatment Clinical Notes Nov, Medication monitoring encounter (ICD-10 - Z51.81) Referring Provider: Robe Waters (awaiting Dr. Hoskins referral) Diagnosis: Thrombus, Atrial [...] CELESTINA Pugh. Seen by Memo Fuchs PharmD [facility] Other 04-20-2022 Evaluation note* Encounter Date Diagnosis Assessment Notes Treatment Notes Treatment Clinical Notes Nov, Medication monitoring encounter (ICD-10 - Z51.81) Referring Provider: Robe Waters (new re will be Dr. Rojas [phone]) Diagnosis: Thrombus, Atrial Fibrillation INR Goal: 2-3 [...] calendar. A new referral is faxed to Dr. HARRIET Hoskins [facility]. Called [facility] [phone], spoke with Amanda SUMNER RN. A [facility] Physician is scheduled to see on 12/22 and take her as a patient. [facility] fax number is [phone]. [facility] Order: draw PT/INR on Completed by: Susan Euceda RN [facility] Other 04-13-2022 Evaluation note* Encounter Date Diagnosis Assessment Notes Treatment Notes Treatment Clinical Notes Nov, Medication monitoring encounter (ICD-10 - Z51.81) Referring Provider: Robe Waters (new re will be Dr. Rojas [phone]) Diagnosis: Thrombus, Atrial Fibrillation INR Goal: 2-3 INR: 1.2 ( 12/09 ) Tablet Size: 5mg Wednesday: 5mg Wednesday: 7.5mg Wednesday: 5mg Wednesday: 7.5mg : 5mg Wednesday: 7.5mg Wednesday: 5mg Total Weekly Dose: 42.5mg [facility] was called, LVM at 8:38 asking for [...] weekly at this time and to notify [facility] if she cannot make appointment. Patient will have INR drawn in clinic. It is recommended for patient to come in for appointments. Med list is updated. A Bridge Recommendation is faxed to PCP. Called [facility] [phone], lv to return call. [facility] fax number is [phone]. [facility] [employer] Order: draw PT/INR on Completed by: Susan Euceda RN [facility] Other 03-23-2022 Evaluation note* Encounter Date Diagnosis Assessment Notes Treatment Notes Treatment Clinical Notes Oct, Medication monitoring encounter (ICD-10 - Z51.81) Referring Provider: Robe Waters Diagnosis: Thrombus, Atrial Fibrillation INR Goal: 2-3 [...] the above instructions. Patient repeated correctly. Called [facility] [phone], lvm with instructions. [facility] fax number is [phone]. This Order is faxed. [facility] [employer] Order: draw PT/INR on Wednesday, November 25, 2021 Completed by: Susan Euceda RN [facility] Other 03-15-2022 Evaluation note* Encounter Date Diagnosis Assessment Notes Treatment Notes Treatment Clinical Notes Oct, Medication monitoring encounter (ICD-10 - Z51.81) Referring Provider: Robe Waters Diagnosis: Thrombus, Atrial Fibrillation INR Goal: 2-3 INR: 2.2 Tablet Size: 5mg Wednesday: 5mg Wednesday: 7.5mg Wednesday: 5mg Wednesday: 7.5mg : 5mg Wednesday: 7.5mg Wednesday: 5mg Total Weekly Dose: 42.5mg Determing Dose. Continue above plan, Follow up in 1 week. See calendar. Patient is drinking Boost supplement once daily. Called [facility] [phone], lvm for nurse with Vera Patel. LVM on Amanda's phone. Amanda returned call, discussed the above instructions. [facility] fax number is [phone]. This Order is faxed. [facility] Order: draw PT/INR on Thursday, November 18, 2021 Completed by: Susan Euceda RN [facility] Other 03-09-2022 Evaluation note* Encounter Date Diagnosis Assessment Notes Treatment Notes Treatment Clinical Notes Oct, Medication monitoring encounter (ICD-10 - Z51.81) Referring Provider: Robe Waters Diagnosis: Thrombus, Atrial Fibrillation INR Goal: 2-3 INR: 1.11 ([facility] 11/05/21) Tablet Size: 5mg Wednesday: 5mg Wednesday: [...] AC plan. Patient states she will call [facility] after talking to family members for rides. Called [facility] LVEde for a return call. Addendum: Nurse Adriana SUMNER from [facility] returned call and stated understanding to instructions. Phone for [phone] ext [phone], nurse with Vera. [facility] fax number is [phone] per pt. Home Health Order: draw INR on Thursday, November 11, 2021 Completed by: Susan Euceda RN [employer] Other 03-02-2022 Evaluation note* Encounter Date Diagnosis Assessment Notes Treatment Notes Treatment Clinical Notes Oct, Medication monitoring encounter (ICD-10 - Z51.81) Referring Provider: Robe Waters Diagnosis: Thrombus, Atrial Fibrillation INR Goal: 2-3 INR: 1.22 ([facility] 10/28/21) Tablet Size: 5mg Wednesday: 5mg Wednesday: 5mg Wednesday: 5mg Wednesday: 5mg : 5mg Wednesday: 5mg Wednesday: 5mg Total Weekly Dose: 35mg Determing Dose. Continue warfarin as instructed above. This will be discussed with Dr. Packer tomorrow as patient admits to having diarrhea and blood in stool. Clinical decision not to boost until Dr. Packer is made aware of bleeding. [phone]), nurse with Vera. [employer] fax number is [phone] per pt. Home Health Order: draw INR on Completed by: Jeane Dykes RPh [employer] Other 02-24-2022 Evaluation note* Encounter Date Diagnosis Assessment Notes Treatment Notes Treatment Clinical Notes Sep, Medication monitoring encounter (ICD-10 - Z51.81) Referring Provider: Robe Waters Diagnosis: Thrombus, Atrial Fibrillation INR Goal: 2-3 INR: 1.29 ([facility]) Tablet Size: 5mg Wednesday: 5mg Wednesday: 5mg Wednesday: 5mg Wednesday: 5mg : 5mg Wednesday: 5mg Wednesday: 5mg Total Weekly Dose: 35mg Boost additional 2.5mg for 3 days, then resume above plan. Follow up with a draw on Wednesday. Patient was not bridged with Lovenox at discharge from [facility]. Patient has been back on warfarin for 1 week. BURAK Wright's phone number ([phone]), nurse with [employer] fax number is [phone] per pt. Home Health Order: draw INR on Wednesday10/28/2021 Completed by: Jeane Dykes, [facility] [employer] Other 01-01-2022 History of Present illness Narrative* [...] details. * She has remote history of NC , cardiogenic shock, PCI circumflex and iABP, with persistent severe LV dysfunction. She later occluded her cicumflex. Years later, she had HF and severe MR and underwentmitral valve repair at [facility]. She had recurrent VT and atrial arrhythmias, and underwent several ablations and repeat percutaneous MVR at [facility]. After her MVR and ablation in July,, she had KALLI when then improved. She has had recurrent ICD shocks for atrial flutter. * Personal review of ECG and cardiac data reviewed * Outside records: * EP study and successful ablation of atrial flutter. Multiple atrial tachycardias, possible left atrial tachycardia also noted and not targeted for ablation. December 2021. * Discharge summary [facility] Oct 2021 * Cardiology consult Oct 2021 [...] Patient reports that she follows up with [facility]. [facility] cardiology for further adjustment of medication. Patient will notify us with whom she follows. Co nsider referral to advanced heart failure section. * Sustained VT s/p ablations at [facility]. No documentation of ablations available in chart. * CAD, chronic. See above. Reviewed meds. Continue meds. Discussed refills. * Biventricular ICD for refractory heart failure. Medtronic [id number]. Reviewed device check. No recentdevice check noted. Order sent to [facility] device clinic for device checks. * Hypertension, chronic. Stable. Reviewed meds. Continue meds. Discussed refills. * Migraine headache * AHA recommendations for exercise, diet, and behavioral modification reviewed with pt. * The patient and I discussed the mechanism of arrhythmia, ablation to prevent atrial flutter, no recurrent inappropriate shocks, need for compliance for device checks, order sent to [facility] for device checks, follow-up with heart failure clinic at [facility], indications for and typesof medications, discussion if and what medication refills needed, treatment options, risks, benefits, and imponderables. [place] [employer] lifestyle changes and behavioral modification discussed. All questions answered in detail. Counseling over 50% visit regarding above. Patient appreciative of care. * Grammar * Please excuse grammatical or dictation errors as software dictation application being used. [facility] [address] DO Work Phone: [phone]) 836-350411-18-2021 Evaluation note* Encounter Date Diagnosis Assessment Notes Treatment Notes Treatment Clinical Notes Jun, Medication monitoring encounter (ICD-10 - Z51.81) Referring Provider: Robe Waters Diagnosis: Thrombus, Atrial Fibrillation INR Goal: 2-3 INR: 2.0 Tablet Size: 5mg Wednesday: 5mg Wednesday: 5mg Wednesday: 2.5mg Wednesday: 5mg : 5mg Wednesday: 5mg Wednesday: 5mg Total Weekly Dose: 32.5mg Begin above plan, patient states she has been skipping Wednesday doses, misunderstanding previous instructions. Will add back 2.5mg weekly due to lower INR. Follow up in 2 weeks. Seen by Memo Fuchs PharmD Prized Other 11-01-2021 Evaluation note* Encounter Date Diagnosis Assessment Notes Treatment Notes Treatment Clinical Notes Jun, Medication monitoring encounter (ICD-10 - Z51.81) Referring Provider: Robe Waters Diagnosis: Thrombus, Atrial Fibrillation INR Goal: 2-3 INR: 4.4 Tablet Size: 5mg Wednesday: 5mg Wednesday: 5mg Wednesday: 5mg Wednesday: 5mg : 5mg Wednesday: 5mg Wednesday: 5mg Total Weekly Dose: 35mg Hold warfarin today, Saturday 06/30 and then begin new plan, a 7% decrease. Discussed compliance with appointments. See raymond. Follow up in 2 weeks. Seen by Susan Euceda RN [employer]zed Other 10-11-2021 Evaluation note* Encounter Date Diagnosis Assessment Notes Treatment Notes Treatment Clinical Notes May, Medication monitoring encounter (ICD-10 - Z51.81) Referring Provider: Robe Watesr Diagnosis: Thrombus, Atrial Fibrillation INR Goal: 2-3 [...] 2 weeks. Seen by Jose Molina PharmD [employer] Other 10-17-2020 History of Past illness Narrative* [...] 260ms and 260ms) terminating VT. 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 EP consulted- will follow their recommendations (will continue po amio taper to control rate). Needs pacer check- Wednesday07.18.2012- will d/w EP about pacer check. H/o GERD 07/23/2020 Overview: 07.18.2012: Asymptomatic. On Protonix. documented as of this encounter (statuses as of 01/14/2022) [facility]10[facility] History of Past illness Narrative* Problem [...] 260ms and 260ms) terminating VT. 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 EP consulted- will follow their recommendations (will continue po amio taper to control rate). Needs pacer check- Wednesday07.18.2012- will d/w EP about pacer check. H/o GERD 07/23/2020 Overview: 07.18.2012: Asymptomatic. On Protonix. documented as of this encounter (statuses as of 04/12/2022) [facility] History of Past illness Narrative* Problem [...] 260ms and 260ms) terminating VT. 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 EP consulted- will follow their recommendations (will continue po amio taper to control rate). Needs pacer check- Wednesday07.18.2012- will d/w EP about pacer check. H/o GERD 07/23/2020 Overview: 07.18.2012: Asymptomatic. On Protonix. documented as of this encounter (statuses as of 06/01/2022) [facility] History of Past illness Narrative* Problem [...] 260ms and 260ms) terminating VT. 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 EP consulted- will follow their recommendations (will continue po amio taper to control rate). Needs pacer check- Wednesday07.18.2012- will d/w EP about pacer check. H/o GERD 07/23/2020 Overview: 07.18.2012: Asymptomatic. On Protonix. documented as of this encounter (statuses as of 07/01/2022) [facility] History of Past illness Narrative* Problem [...] 260ms and 260ms) terminating VT. 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 EP consulted- will follow their recommendations (will continue po amio taper to control rate). Needs pacer check- Wednesday07.18.2012- will d/w EP about pacer check. H/o GERD 07/23/2020 Overview: 07.18.2012: Asymptomatic. On Protonix. 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 Ventricular tachycardia 06/08/2020 06/23/20 Overview: Recurrent, slow, hemodynamically stable VT around 107 bmp despite amiodarone VT ablation 06/10 aborted due to large NASAR thrombus. JOVITA 06/10: EF 30%, dilated LA, [...] 260ms and 260ms) terminating VT. 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 EP consulted- will follow their recommendations (will continue po amio taper to control rate). Needs pacer check- Wednesday07.18.2012- will d/w EP about pacer check. H/o GERD 07/23/2020 Overview: 07.18.2012: Asymptomatic. On Protonix. documented as of this encounter (statuses as of 08/30/2022) [facility] History of Past illness Narrative* Problem [...] 260ms and 260ms) terminating VT. 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 EP consulted- will follow their recommendations (will continue po amio taper to control rate). Needs pacer check- Wednesday07.18.2012- will d/w EP about pacer check. H/o GERD 07/23/2020 Overview: 07.18.2012: Asymptomatic. On Protonix. documented as of this encounter (statuses as of 09/11/2022) [facility] History of Past illness Narrative* Problem [...] 260ms and 260ms) terminating VT. 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 EP consulted- will follow their recommendations (will continue po amio taper to control rate). Needs pacer check- Wednesday07.18.2012- will d/w EP about pacer check. H/o GERD 07/23/2020 Overview: 07.18.2012: Asymptomatic. On Protonix. documented as of this encounter (statuses as of 11/28/2022) [facility] History of Past illness Narrative* Problem [...] 260ms and 260ms) terminating VT. Transfer to [facility] on 06/20 Plan: Continue amiodarone 400 [...] 07/13/2012 1 09/15/2011 Overview: IV Fentanyl PRN, ENVIRONMENTAL SCIENCE INSTRUCTOR, Lidoderm patches, Po pain meds Pulmonary insuff [...] Coags, BMP, Mg, Phos Basename 07/12/12 0507 11/12/12 2220 WBC 8.50 6.78 HB 13.1 12.9 [...] papillary muscles and chordal apparatus Dual chamber BLANKET CUTTING MACHINE OPERATOR-D 07/23/2020 Overview: On 11.15.12 -fired x6 for SVT/AF HRs 140-150 (pacer set at 130- any HR over that it recognizes as VT). EP consulted- will follow their recommendations (will continue po amio taper to control rate). Needs pacer check- Wednesday07.18.2012- will d/w EP about pacer check. H/o GERD 07/23/2020 Overview: 07.18.2012: Asymptomatic. On Protonix. documented as of this encounter (statuses as of 03/05/2023) [facility] History of Past illness Narrative* Problem [...] 260ms and 260ms) terminating VT. Transfer to [facility] on 06/20 Plan: Continue amiodarone 400 [...] pain 07/13/2012 07/16/2012 Overview: IV Fentanyl PRN, ENVIRONMENTAL SCIENCE INSTRUCTOR, Lidoderm patches, Po pain meds Pulmonary insuff [...] papillary muscles and chordal apparatus Dual chamber BLANKET CUTTING MACHINE OPERATOR-D 0 Overview: On 07.14.12 -fired x6 for SVT/AF HRs 140-150 (pacer set at 130- any HR over that it recognizes as VT). EP consulted- will follow their recommendations (will continue po amio taper to control rate). Needs pacer check- Wednesday07.18.2012- will d/w EP about pacer check. H/o GERD 07/23/2020 Overview: 07.18.2012: Asymptomatic. On Protonix. documented as of this encounter (statuses as of 03/29/2023) [facility] History of Past illness Narrative* Problem [...] 260ms and 260ms) terminating VT. Transfer to [facility] on 06/20 Plan: Continue amiodarone 400 [...] pain 07/13/2012 07/16/2012 Overview: IV Fentanyl PRN, ENVIRONMENTAL SCIENCE INSTRUCTOR, Lidoderm patches, Po pain meds Pulmonary insuff [...] papillary muscles and chordal apparatus Dual chamber BLANKET CUTTING MACHINE OPERATOR-D 0 Overview: On 07.14.12 -fired x6 for SVT/AF HRs 140-150 (pacer set at 130- any HR over that it recognizes as VT). EP consulted- will follow their recommendations (will continue po amio taper to control rate). Needs pacer check- Wednesday07.18.2012- will d/w EP about pacer check. H/o GERD 07/23/2020 Overview: 07.18.2012: Asymptomatic. On Protonix. documented as of this encounter (statuses as of 04/10/2023) [facility] History of Past illness Narrative* Problem [...] 260ms and 260ms) terminating VT. Transfer to [facility] on 06/20 Plan: Continue amiodarone 400 [...] pain 07/13/2012 07/16/2012 Overview: IV Fentanyl PRN, ENVIRONMENTAL SCIENCE INSTRUCTOR, Lidoderm patches, Po pain meds Pulmonary insuff [...] papillary muscles and chordal apparatus Dual chamber BLANKET CUTTING MACHINE OPERATOR-D 0 Overview: On 07.14.12 -fired x6 for SVT/AF HRs 140-150 (pacer set at 130- any HR over that it recognizes as VT). EP consulted- will follow their recommendations (will continue po amio taper to control rate). Needs pacer check- Wednesday07.18.2012- will d/w EP about pacer check. H/o GERD 07/23/2020 Overview: 07.18.2012: Asymptomatic. On Protonix. documented as of this encounter (statuses as of 04/22/2023) [facility] History of Past illness Narrative* Problem [...] 260ms and 260ms) terminating VT. Transfer to [facility] on 06/20 Plan: Continue amiodarone 400 [...] pain 07/13/2012 07/16/2012 Overview: IV Fentanyl PRN, ENVIRONMENTAL SCIENCE INSTRUCTOR, Lidoderm patches, Po pain meds Pulmonary insuff [...] papillary muscles and chordal apparatus Dual chamber BLANKET CUTTING MACHINE OPERATOR-D 0 Overview: On 07.14.12 -fired x6 for SVT/AF HRs 140-150 (pacer set at 130- any HR over that it recognizes as VT). EP consulted- will follow their recommendations (will continue po amio taper to control rate). Needs pacer check- Wednesday07.18.2012- will d/w EP about pacer check. H/o GERD 07/23/2020 Overview: 07.18.2012: Asymptomatic. On Protonix. documented as of this encounter (statuses as of 05/07/2023) [facility] History of Past illness Narrative* Problem [...] 1+ MR, 4+TR. TTE 06/11: EF 27%. 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 There is [...] 260ms and 260ms) terminating VT. Transfer to [facility] on 06/20 Plan: Continue amiodarone 400 [...] pain 07/13/2012 07/16/2012 Overview: IV Fentanyl PRN, ENVIRONMENTAL SCIENCE INSTRUCTOR, Lidoderm patches, Po pain meds Pulmonary insuff [...] papillary muscles and chordal apparatus Dual chamber BLANKET CUTTING MACHINE OPERATOR-D 0 Overview: On 07.14.12 -fired x6 for SVT/AF HRs 140-150 (pacer set at 130- any HR over that it recognizes as VT). EP consulted- will follow their recommendations (will continue po amio taper to control rate). Needs pacer check- Wednesday07.18.2012- will d/w EP about pacer check. H/o GERD 07/23/2020 Overview: 07.18.2012: Asymptomatic. On Protonix. documented as of this encounter (statuses as of 07/28/2023) [facility] History of Past illness Narrative* Problem [...] 260ms and 260ms) terminating VT. Transfer to [facility] on 06/20 Plan: Continue amiodarone 400 [...] pain 07/13/2012 07/16/2012 Overview: IV Fentanyl PRN, ENVIRONMENTAL SCIENCE INSTRUCTOR, Lidoderm patches, Po pain meds Pulmonary insuff [...] papillary muscles and chordal apparatus Dual chamber BLANKET CUTTING MACHINE OPERATOR-D 0 Overview: On 07.14.12 -fired x6 for SVT/AF HRs 140-150 (pacer set at 130- any HR over that it recognizes as VT). EP consulted- will follow their recommendations (will continue po amio taper to control rate). Needs pacer check- Wednesday07.18.2012- will d/w EP about pacer check. H/o GERD 07/23/2020 Overview: 07.18.2012: Asymptomatic. On Protonix. documented as of this encounter (statuses as of 07/28/2023) [facility] History of Past illness Narrative* Problem [...] 260ms and 260ms) terminating VT. Transfer to [facility] on 06/20 Plan: Continue amiodarone 400 [...] pain 07/13/2012 07/16/2012 Overview: IV Fentanyl PRN, ENVIRONMENTAL SCIENCE INSTRUCTOR, Lidoderm patches, Po pain meds Pulmonary insuff [...] papillary muscles and chordal apparatus Dual chamber BLANKET CUTTING MACHINE OPERATOR-D 0 Overview: On 07.14.12 -fired x6 for SVT/AF HRs 140-150 (pacer set at 130- any HR over that it recognizes as VT). EP consulted- will follow their recommendations (will continue po amio taper to control rate). Needs pacer check- Wednesday07.18.2012- will d/w EP about pacer check. H/o GERD 07/23/2020 Overview: 07.18.2012: Asymptomatic. On Protonix. documented as of this encounter (statuses as of 08/10/2023) [facility] Diagnosis Onset Date Resolution Status Afib acute Anemia acute CAD (coronary artery disease) acute Iron deficiency anemia acute Ischemic cardiomyopathy with implantable cardioverter-defibrillator (ICD) acute Palpitations acute Supratherapeutic INR acute Ventricular tachycardia acut e [facility] InformationNort [employer] Other Evaluation noteNoCTER[employer] Other Evaluation note* Diagnosis Onset Date Resolution Status KALLI (acute kidney injury) ac [place] Digoxin toxicity acute Elevated troponin I level ac [place] Hypotension acute Thrombocytopenia acute [facility] assessment information available [facility] Work Phone: Evaluation note* Diagnosis Persistent atrial fibrillation (HCC)- Primary Atrial fibrillation [facility] Diagnosis ICD (implantable cardioverter-defibrillator) battery depletion documented in this encounter [facility] Work Phone: Evaluation note* Diagnosis ICD (implantable cardioverter-defibrillator) battery depletion Elective replacement of implantable cardioverter-defibrillator (ICD) battery required- Primary Biventricular implantable cardioverter-defibrillator (ICD) in situ Biventricular implantable cardioverter-defibrillator (ICD) in situ Elective replacement of implantable cardioverter-defibrillator (ICD) battery required documented in this encounter [facility] Work Phone: History general Narrative - Reported* [...] see surgical hx Hospitalization History heart issues Prized Other Hisqtyj general Narrative - ReportedNotenet [place] [employer] Other Hiszfpj general Narrative - Reported* Type Description Date [...] open heart surgery 06/2012 Surgical History pacemaker/defibrillator 1999 Surgical History hysterectomy Surgical History cholecystectomy Surgical History appendectomy Surgical History T&A Surgical History Back Surgery Hospitalization History see surgical hx Hospitalization History heart issues Prized Other History of Present illness Narrative* She is referred by Dr. Gato for evaluation for ablation of atrial flutter. * She has remote history of NC , cardiogenic shock, PCI circumflex and iABP, with persistent severe LV dysfunction. She later occluded her cicumflex. Years later, she had HF and severe MR and underwentmitral valve repair at [facility]. She had recurrent VT and atrial arrhythmias, and underwent several ablations and repeat percutaneous MVR at [facility]. After her MVR and ablation in July,, [...] reviewed * Outside records: * Discharge summary [facility] Oct 2021 * Cardiology consult Oct 2021 * ECG Oct 2021 * H and P Oct 2021 * Echo Oct 2021. LVEF 15% * ECG: Today. Atrial flutter. LAD. QT 400 ms * See signed ECG and check /Paceart. * Imp / Plan * Paroxsymal atrial flutter. Mutliple ICD shocks. Shared decision making re: atrial flutter management. Preop cardiac evaluation performed. Storey decision tool. She opts for EP study ablation of atrial flutter. Procedures, risks, benefits, and imponderables reviewed. Consented. * Chronic systolic heart failure. Stable NYHA III C HF. Reviewed meds. Continue meds. Refills. * Sustained VT s/p ablations at [facility]. No documentation of ablations available in chart at time of visit * CAD, chronic. See above. Reviewed meds. Continue meds. Refills. * Biventricular ICD for refractor heart failure. Medtronic [id number]. Reviewed device check. Followed at [facility]. * Preop cardiac eval. See orders. * [...] needed, treatment options, risks, benefits, and imponderables. [place] [employer] lifestyle changes and behavioral modification discussed. All questions answered in detail. Counseling over 50% visit regarding above. Patient appreciative of care. * Grammar * Please excuse grammatical or dictation errors as software dictation application being used. -[facility] [address] DO Work Phone: Reason for visit [facility] nurse RC/waiting for referralGreenwood Bridge [employer] Other Summary Purpose Family History Relationship Condition [...] Documents on File Type Date Recorded Patient Multicultural Internship Expl anation Advance Directive(s) 06/18/2020 4:28 PM [...] Documents on File Type Date Recorded Patient Multicultural Internship Expl anation Advance Directive(s) 03/12/2021 1:21 PM Advance Directive(s) 12/27/2020 3:12 PM Advance Directive(s) 08/18/2020 1:26 PM Advance Directive(s) 08/17/2020 6:49 PM Advance Directive(s) 08/11/2020 1:34 PM [facility] Advance Directive(s) 07/23/2020 12:14 PM Advance Directive(s) [...] pain acute Elevated troponin I level ac [place] Ischemic cardiomyopathy with implantable cardioverter-defibrillator (ICD) acute [...] acut e Chief Complaint Order sent to [facility] for testing due in patient referred by Dr. Hoskins for possible ablation. Seen at [facility] 11/04/2021atient is here today for a scheduled follow upAmiodarone Order sent to [facility] for testing due in May Reason for Referral Specialty Diagnoses / Procedures Referred By Purnima ferris Referred To Contact Cardiology Diagnoses ICD (implantable cardioverter-defibrillator) battery depletion Procedures Cardiac Device Check - In Clinic Margareth Nunez MD [address] [place] [address] Referral ID Status Reason Start Date Expiration Date Visits Requested Visits Authorized [id number] Pending Review Perform Procedure 3 07/26/2024 52 52 Additional Source Comments INFORMATION SOURCE (unrecogn ized section and content) DATE CREATED AUTHOR 10/19/2018 [facility] DATE CREATED AUTHOR AUTHOR'S ORGANIZ ATION 09/30/2021 [facility] [employer] [facility] DATE CREATED AUTHOR AUTHOR'S ORGANIZ ATION 02/07/2022 [facility] DATE CREATED AUTHOR AUTHOR'S ORGANIZ ATION 04/26/2022 [employer] DATE CREATED AUTHOR AUTHOR'S ORGANIZ ATION 02/06/2023 [facility] DATE CREATED AUTHOR AUTHOR'S ORGANIZ ATION 03/16/[address] [facility] DATE CREATED AUTHOR AUTHOR'S ORGANIZ ATION 07/05/2023 [facility] DATE CREATED AUTHOR AUTHOR'S ORGANIZ ATION 08/15/2023 [facility] DATE CREATED AUTHOR AUTHOR'S ORGANIZ ATION 08/29/2023 [facility] DATE CREATED AUTHOR AUTHOR'S ORGANIZ ATION 09/05/2023 [facility] DATE CREATED AUTHOR AUTHOR'S ORGANIZ ATION 09/07/2023 [facility] Source Comments (unrecognize d section and content) In the event this informatio n is protected by the Federal Confidentiality of Alcohol and Drug Abuse Patient Records regulations: The Federal rules restrict any use of the information to criminally investigate or prosecute any alcohol or drug abuse patient.[facility] Hospital[facility] the event this information is protected by the Federal Confidentiality of Alcohol and Drug Abuse Patient Records regulations: The Federal rules restrict any use of the information to criminally investigate or prosecute any alcohol or drug abuse patient.[facility] HospitalIn the event this information is protected by the Federal Confidentiality of Alcohol and Drug Abuse Patient Records regulations: The Federal rules restrict any use of the information to criminally investigate or prosecute any alcohol or drug abuse patient.[facility] HospitalIn the event this information is protected by the Federal Confidentiality of Alcohol and Drug Abuse Patient Records regulations: The Federal rules restrict any use of the information to criminally investigate or prosecute any alcohol or drug abuse patient.[facility] HospitalIn the event this information is protected by the Federal Confidentiality of Alcohol and Drug Abuse Patient Records regulations: The Federal rules restrict any use of the information to criminally investigate or prosecute any alcohol or drug abuse patient.[facility] HospitalIn the event this information is protected by the Federal Confidentiality of Alcohol and Drug Abuse Patient Records regulations: The Federal rules restrict any use of the information to criminally investigate or prosecute any alcohol or drug abuse patient.[facility] HospitalIn the event this information is protected by the Federal Confidentiality of Alcohol and Drug Abuse Patient Records regulations: The Federal rules restrict any use of the information to criminally investigate or prosecute any alcohol or drug abuse patient.[facility] HospitalIn the event this information is protected by the Federal Confidentiality of Alcohol and Drug Abuse Patient Records regulations: The Federal rules restrict any use of the information to criminally investigate or prosecute any alcohol or drug abuse patient.[facility] HospitalIn the event this information is protected by the Federal Confidentiality of Alcohol and Drug Abuse Patient Records regulations: The Federal rules restrict any use of the information to criminally investigate or prosecute any alcohol or drug abuse patient.[facility] HospitalIn the event this information is protected by the Federal Confidentiality of Alcohol and Drug Abuse Patient Records regulations: The Federal rules restrict any use of the information to criminally investigate or prosecute any alcohol or drug abuse patient.[facility] HospitalIn the event this information is protected by the Federal Confidentiality of Alcohol and Drug Abuse Patient Records regulations: The Federal rules restrict any use of the information to criminally investigate or prosecute any alcohol or drug abuse patient.[facility] HospitalIn the event this information is protected by the Federal Confidentiality of Alcohol and Drug Abuse Patient Records regulations: The Federal rules restrict any use of the information to criminally investigate or prosecute any alcohol or drug abuse patient.[facility] HospitalIn the event this information is protected by the Federal Confidentiality of Alcohol and Drug Abuse Patient Records regulations: The Federal rules restrict any use of the information to criminally investigate or prosecute any alcohol or drug abuse patient.[facility] HospitalIn the event this information is protected by the Federal Confidentiality of Alcohol and Drug Abuse Patient Records regulations: The Federal rules restrict any use of the information to criminally investigate or prosecute any alcohol or drug abuse patient.[facility] HospitalIn the event this information is protected by the Federal Confidentiality of Alcohol and Drug Abuse Patient Records regulations: The Federal rules restrict any use of the information to criminally investigate or prosecute any alcohol or drug abuse patient.[facility] HospitalIn the event this information is protected by the Federal Confidentiality of Alcohol and Drug Abuse Patient Records regulations: The Federal rules restrict any use of the information to criminally investigate or prosecute any alcohol or drug abuse patient.[facility] HospitalIn the event this information is protected by the Federal Confidentiality of Alcohol and Drug Abuse Patient Records regulations: The Federal rules restrict any use of the information to criminally investigate or prosecute any alcohol or drug abuse patient.[facility] HospitalIn the event this information is protected by the Federal Confidentiality of Alcohol and Drug Abuse Patient Records regulations: The Federal rules restrict any use of the information to criminally investigate or prosecute any alcohol or drug abuse patient.[facility] HospitalIn the event this information is protected by the Federal Confidentiality of Alcohol and Drug Abuse Patient Records regulations: The Federal rules restrict any use of the information to criminally investigate or prosecute any alcohol or drug abuse patient.[facility] HospitalIn the event this information is protected by the Federal Confidentiality of Alcohol and Drug Abuse Patient Records regulations: The Federal rules restrict any use of the information to criminally investigate or prosecute any alcohol or drug abuse patient.[facility] Care Teams (unrecognized sec tion and content) 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 Start Date End Date WatersRobe (Fax) PCP - General 04/16/10 Nadir Hoskins [address] [place] [address] Physician Cardiology 10/13/18 Margareth Nunez [address] [place] [phone] Cardiology 10/14/18 Violeta Chan MD [address] [place] [address] Stock Letterer Cardiology 07/04/20 Violeta Chan MD [address] [place] [address] Primary Staff Physician Cardiology 02/11/21 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 Start Date End Date Robe Waters (Fax) PCP - General 04/16/10 Nadir Hoskins [address] [place] [address] Physician Cardiology 10/13/18 Margareth Nunez [address] [place] [phone] Cardiology 10/14/18 Violeta Chan MD [address] [place] [address] Stock Letterer Cardiology 07/04/20 Violeta Chan MD [address] [place] [address] Primary Staff Physician Cardiology 02/11/21 Team Status: Active Member Role Status Dates Darian Smiley DO Attending Provider Active Team Status: Active Member Role Status Dates PHYSICIAN NO FAMILY Primary Care Provider Active 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 Start Date End Date Robe Waters (Fax) PCP - General 04/16/10 Nadir Hoskins [address] [address] Physician Cardiology 10/13/18 Margareth Nunez MD Cardiology 10/14/18 Violeta Chan MD [address] [place] [address] Stock Letterer Cardiology 07/04/20 Violeta Chan MD [address] [place] [address] Primary Staff Physician Cardiology 02/11/21 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 Start Date End Date Robe Waters (Fax) PCP - General 04/16/10 Nadir Hoskins [address] [address] Physician Cardiology 10/13/18 Margareth Nunez MD [address] [address] Cardiology 10/14/18 Violeta Chan MD [address] [place] [address] Stock Letterer Cardiology 07/04/20 Violeta Chan MD [address] [place] [address] Primary Staff Physician Cardiology 02/11/21 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 Start Date End Date Robe Waters PCP - General 04/16/10 Nadir Hoskins [address] [place] [address] Physician Cardiology 10/13/18 Margareth Nunez MD [address] [address] Cardiology 10/14/18 Violeta Chna MD [address] [place] [address] Stock Letterer Cardiology 07/04/20 Violeta Chan MD [address] [place] [address] Primary Staff Physician Cardiology 02/11/21 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 Start Date End Date Robe Waters PCP - General 04/16/10 Nadir Hoskins [address] [place] [address] Physician Cardiology 10/13/18 Margareth Nunez MD [address] [place] [address] Cardiology 10/14/18 Violeta Chan MD [address] [place] [address] Stock Letterer Cardiology 07/04/20 Violeta Chan MD [address] [place] [address] Primary Staff Physician Cardiology 02/11/21 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 Start Date End Date Anju Cuevas DMD [address] [facility] [place] [address] Physician Oral & Maxillofacial Surgery 06/04/20 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 Start Date End Date Robe Waters (Fax) PCP - General 04/16/10 Nadir Hoskins [address] [address] Physician Cardiology 10/13/18 Margareth Nunez MD [address] [address] Cardiology 10/14/18 Violeta Chan MD [address] [place] [address] Stock Letterer Cardiology 07/04/20 Violeta Chan MD [address] [place] [address] Primary Staff Physician Cardiology 02/11/21 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 Start Date End Date Robe Waters (Fax) PCP - General 04/16/10 Nadir Hoskins [address] [address] Physician Cardiology 10/13/18 Margareth Nunez MD [address] [address] Cardiology 10/14/18 Violeta Chan MD [address] [place] [address] Stock Letterer Cardiology 07/04/20 Violeta Chan MD [address] [place] [address] Primary Staff Physician Cardiology 02/11/21 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 Start Date End Date Waters Robe Franco (Fax) PCP - General 04/16/10 Nadir Hoskins [address] [address] Physician Cardiology 10/13/18 Margareth Nunez MD [address] [address] Cardiology 10/14/18 Violeta Chan MD [address] [place] [address] Stock Letterer Cardiology 07/04/20 Violeta Chan MD [address] [place] [address] Primary Staff Physician Cardiology 02/11/21 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 Start Date End Date WatersRobe painter Franco PCP - General 04/16/10 Nadir Hoskins DO [address] [place] [address] Physician Cardiology 10/13/18 Margareth Nunez MD [address] [place] [address] Cardiology 10/14/18 Violeta Chan MD [address] [place] [address] Stock Letterer Cardiology 07/04/20 Violeta Chan MD [address] [place] [address] Primary Staff Physician Cardiology 02/11/21 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 Start Date End Date Robe Waters (Fax) PCP - General 04/16/10 Nadir Hoskins DO [address] [place] [address] Physician Cardiology 10/13/18 Margareth Nunez MD [address] [place] [address] Cardiology 10/14/18 Violeta Chan MD [address] [place] [address] Stock Letterer Cardiology 07/04/20 Violeta Chan MD [address] [place] [address] Primary Staff Physician Cardiology 02/11/21 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 Start Date End Date Robe Wtaers (Fax) PCP - General 04/16/10 Nadir Hoskins DO [address] [place] [address] Physician Cardiology 10/13/18 Margareth Nunez MD [address] [place] [address] Cardiology 10/14/18 Violeta Chan MD [address] [place] [address] Stock Letterer Cardiology 07/04/20 Violeta Chan MD [address] [place] [address] Primary Staff Physician Cardiology 02/11/21 Team Status: Active Member Role Status Dates Amanda Grace APRN TUBE MACHINE OPERATOR HELPER-Cici Primary Care Provider Active Team Status: Inactive Member Role Status Dates Margareth Nunez MD Attending Provider Active Amanda Grace APRN TUBE MACHINE OPERATOR HELPER-Cici Primary Care Provider Active 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 Start Date End Date Robe Waters PCP - General 04/16/10 Nadir Hoskins DO [address] [place] [address] Physician Cardiology 10/13/18 Margareth Nunez MD [address] [place] [address] Cardiology 10/14/18 Violeta Chan MD [address] [place] [address] Stock Letterer Cardiology 07/04/20 Violeta Chan MD [address] [place] [address] Primary Staff Physician Cardiology 02/11/21 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 Start Date End Date Shaikh Rojas MD [facility] [id number] [place] [id number] PCP - General 04/24/22 Jameel Valenzuela, MEDICAL DELIVERY TECHNICIAN-CERTIFIED [place] [address] [address] Nurse Practitioner Cardiology 09/02/23 Margaerth Nunez MD [address] [address] Consulting Physician Cardiology 09/02/23 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 Start Date End Date Shaikh Rojas MD [facility] [address] [place] [address] PCP - General 04/24/22 Jameel Valenzuela, MEDICAL DELIVERY TECHNICIAN-CERTIFIED [place] [address] [address] Nurse Practitioner Cardiology 09/02/23 Margareth Nunez MD [address] [address] Consulting Physician Cardiology 09/02/23 REASON FOR VISIT (unrecogniz ed section and content) resend script Reason Onset Date Comments Opened In Error 07/27/2022 Reason Comments Research IRB [id number]-AF Specialty Diagnoses / Procedures Referred By Contac t Referred To Contact Cardiology Diagnoses ICD (implantable cardioverter-defibrillator) battery depletion Procedures Cardiac Device Check - In Clinic Margareth Nunez MD [address] [address] Referral ID Status Reason Start Date Expiration Date Visits Requested Visits Authorized [id number] Pending Review Perform Procedure 3 07/26/2024 52 [...] BE BASED ON THE PRIMARY CLINICAL RECORDS. [facility]. provides no warranty or guarantee of the accuracy or completeness of information in this document.
[2023-09-23 13:01] LABS: Anion Gap 6.1; BUN Creatinine Ratio 22.3; Calcium 8.4 mg/dL (8.5-10.1); Carbon Dioxide 29.2 mmol/L (21.0-32.0); Chloride 101 mmol/L (98-107); Estimated GFR (African America >60 (>=60); Estimated GFR (Non-African Ame 56 (>=60); Glucose 103 mg/dL (74-106); Potassium 3.3 mmol/L (3.5-5.1); Sodium 133 mmol/L (136-145)
== END 2023-09-23 11:03 | disposition home or self-care (01) ==
LOC: LAB 11:07
PROVIDERS: PCP Nurse Practitioner Family
DX: I50.22 Chronic systolic (congestive) heart failure (principal); E87.5 Hyperkalemia
CPT/HCPCS: 36415; 80048; 83880

== ENCOUNTER 2023-09-30 01:26 | Outpatient (RCR) | payer MEDICARE, MEDICAID, SELFPAY | END 2023-10-28 17:07 | disposition home or self-care (01) | LOC: MM 01:26 | PROVIDERS: PCP Nurse Practitioner Family; Visit Provider Internal Medicine | DX: Z51.81 Encounter for therapeutic drug level monitoring (principal); Z79.01 Long term (current) use of anticoagulants; I48.0 Paroxysmal atrial fibrillation ==

== ENCOUNTER 2023-10-29 03:24 | Outpatient (RCR) | payer MEDICARE, MEDICAID, SELFPAY | END 2023-11-26 14:03 | disposition home or self-care (01) | LOC: MM 03:24 | PROVIDERS: PCP Nurse Practitioner Family; Visit Provider Internal Medicine | DX: Z51.81 Encounter for therapeutic drug level monitoring (principal); Z79.01 Long term (current) use of anticoagulants; I48.0 Paroxysmal atrial fibrillation ==

== ENCOUNTER 2023-11-29 00:19 | Outpatient (RCR) | payer MEDICARE, MEDICAID, SELFPAY | END 2023-12-28 17:43 | disposition home or self-care (01) | LOC: MM 00:19 | PROVIDERS: PCP Nurse Practitioner Family; Visit Provider Internal Medicine | DX: Z51.81 Encounter for therapeutic drug level monitoring (principal); Z79.01 Long term (current) use of anticoagulants; I48.0 Paroxysmal atrial fibrillation ==

== ENCOUNTER 2023-12-29 04:33 | Outpatient (RCR) | payer MEDICARE, MEDICAID, SELFPAY | END 2024-01-28 11:42 | disposition home or self-care (01) | LOC: MM 04:33 | PROVIDERS: PCP Nurse Practitioner Family; Visit Provider Internal Medicine | DX: Z51.81 Encounter for therapeutic drug level monitoring (principal); Z79.01 Long term (current) use of anticoagulants; I48.0 Paroxysmal atrial fibrillation ==

== ENCOUNTER 2024-01-31 00:12 | Outpatient (RCR) | payer MEDICARE, MEDICAID, SELFPAY | END 2024-02-25 10:12 | disposition home or self-care (01) | LOC: MM 00:12 | PROVIDERS: PCP Nurse Practitioner Family; Visit Provider Internal Medicine | DX: Z51.81 Encounter for therapeutic drug level monitoring (principal); Z79.01 Long term (current) use of anticoagulants; I48.0 Paroxysmal atrial fibrillation ==

== ENCOUNTER 2024-02-17 22:47 | Emergency (ER) | payer MEDICARE, MEDICAID, SELFPAY ==
[2024-02-17] VITALS (13 sets, daily range): BP systolic 127–141; BP diastolic 71–85; PULSE 80–99; TEMP 36.8; O2SAT 96–99; BMI 28.3
--- OUTSIDE RECORDS SUMMARY | 2024-02-17 22:55 | XMS_ITS ---
Patient Summarization (C-CDA 2.1 CCD) Created on: February 17, 2024 Essence Vincent : 1970 Sex: Female Author Organization Sample organization Care Team Providers [employer] Founder Name Role Phone MAYRA, MARGARETH Admitting Unavailable MAYRA, MARGARETH Attending Unavailable GAVIN, ROBE Primary Care Unavailable MAYRA, MARGARETH Admitting Unavailable MAYRA, MARGARETH Attending Unavailable GAVIN, ROBE Primary Care Unavailable MAYRA, MARGARETH Admitting Unavailable MAYRA, MARGARETH Attending Unavailable GAVIN, ROBE Primary Care Unavailable AGUILA VASQUEZ Attending Unavaila ROBE Forbes Primary Care Unavailable JAMEEL VALENZUELA Attending Unavailfaith ALONSO, ROBE Primary Care Unavailable MAYRA, MARGARETH Admitting Unavailable MAYRA, MARGARETH Attending Unavailable GAVIN, ROBE Primary Care Unavailable Darian Smiley Attending Provider Robe Alonso Primary Care Provider Robe Alonso Admit Provider Robe Alonso Attending Provider [phone] Darian Smiley Attending Provider Robe Alonso Primary Care Provider Robe Alonso Admit Provider Robe Alonso Attending Provider [phone] Unavailable Unavailable PROVIDER, UNKNOWN Attending Unavailable PROVIDER, UNKNOWN Admitting Unavailable PATIENT, SELF Referring Unavailable None, No PCP Unavailable Unavailable Robe Alonso Primary Care Provider [phone] Nadir Hoskins Unavailable [phone] MayraPerfectoa J Unavailable Dustin CLAY, Violeta Unavailable [phone] Dustin CLAY, Violeta Unavailable Fitt, Jeane Unavailable DO Darian Smiley Attending Provider [phone] MD Robe Alonso Primary Care Provider MD Robe Alonso Attending Provider MD Robe Alonso Referring Provider [phone] DO Hira Lay Emergency Provider MD Ken Putnam Admit Provider MD Ken Rizo Attending Provider Robe Alonso Primary Care Provider [phone] Nadir Hoskins Unavailable [phone] Margareth Nunez Unavailable Dustin CLAY, Violeta Unavailable Dustin CLAY, Violeta Unavailable DO Darian Smiley Attending Provider [phone] Fawwapriti, Roy Unavailable Robe Alonso A Primary Care Provider Nadir Hoskins Unavailable Margareth Nunez MD Unavailable Robe Alonso Primary Care Provider Nadir Hoskins Unavailable Margareth Nunez MD Unavailable Dustin CLAY, Violeta Unavailable [phone] Dustin CLAY, Violeta Unavailable [phone] Cuevas DMD, Anju Unavailable FAWWAD, ROY H [...] FAWWAD, ROY H Primary Care Unavailable FAWWAD, RYO H Admitting Unavailable FAWWAD, ROY H Attending [...] Care Unavailable JEAN CLAUDE GUZMAN Attending Unavailable DR JC BRAVO Consulting Unavailable JEAN CLAUDE GUZMAN Admitting Unavailable JEAN CLAUDE GUZMAN Consulting Unavailable Alejo, Tenzin Consulting Unavailable PERRY HALL, DR Juan Miguel Gamez Consulting Unavailable CORIE, DR Juan Miguel Gaemz Attending Unavailable CORIE, DR Juan Miguel Gamez Admitting Unavailable [facility] Primary Care Unavailable SHELLY, DR JC Car Consulting Unavailable Nadir Hoskins DO Unavailable Dustin CLAY, Violeta Unavailable [phone] Dustin CLAY, Violeta Unavailable Amanda Grace Unavailable MD Margareth Nunez Attending Provider PETE Grace Primary Care Provider Crystal CLAY, Primary Care Provider [phone] Bianca FEREMAN-Jameel VASQUEZ Unavailable Margareth Nunez MD Unavailable JAMEEL VALENZUELA Attending Unavaila [facility] Primary Care Unavailable Liam Hyman MD Primary Care Provider [phone] YESSI MILLER Referring Unavailable LIAM HYMAN Primary Care Unavailable MARGARETH NUNEZ Referring Unavailable [facility] Primary Care Unavailable MARGARETH NUNEZ Admitting Unavailable MARGARETH NUNEZ Attending Unavailable [facility] Primary Care Unavailable Mayra Chang, Margareth Referring Unavailable Mayra Chang, Margareth Attending Unavailable Arjun EPPS Attending Unavailable NILLori, Arjun Car Attending Unavailable Arjun EPPS Attending Unavailable Unavailable Primary Care Provider UnavailLiam Xiong MD Primary Care Provider [phone] TRACEY, SWAPNIL Referring Unavailable LIAM HYMAN Primary Care Unavailable TRACEY, SWAPNIL Referring Unavailable LIAM HYMAN Primary Care Unavailable TRACEY, SWAPNIL Admitting Unavailable TRACEY, SWAPNIL Attending Unavailable VINCENT GARZA Consulting UnavailAJAY Negrete Consulting Unavailable LIAM HYMAN Primary Care Unavailable PEDRO BLAS Referring Unavailable MD Tanner Mae Jr Emergency Provider MD Karen Garner Primary Care Provider Karen Garner Primary Care Unavailable Tanner Mae Jr Admitting Unavailable Tanner Mae Jr Attending Unavailable Margareth Nunez Attending Unavailable Amanda Grace Primary Care Unavailable Margareth Nunez Admitting Unavailable Unavailable Unavailable Unavailable Allergies Allergy Classification Reported Allergen(s) Allergy Type Date of Onset Reaction(s) Facility Adhesive Tape (1 source) Adhesive Tape Substance Allergy 11-24-19 21 Unknown Reaction [facility] Ondansetron (1 source) Ondansetron Drug Allergy 11-24-19 21 Agitated [facility] Opioid Agonists (2 sources) fentaNYL Drug Allergy 11-24-19 21 Palpitations, Unknown Reaction [facility] (20 sources) Adhesive Tape; 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: [adhesive tape] Propensity to adverse reactions 08-16-20 20 Unknown Reaction, Redness of Skin [facility] (20 sources) fentaNYL; 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: [fentanyl] Drug Allergy 09-21-19 20 Headache, Other [facility] (20 sources) Morphine; 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: [MORPHINE] Drug Allergy 04-26-20 12 Vomiting, GI intolerance, Nausea/vomiting , Nausea And Vomiting [facility] (15 sources) Ondansetron; 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: [ONDANSETRON] Drug Allergy 09-21-19 20 Agitated [facility] Repository (20 sources) erythromycin base; 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: [Erythromycin Base] Allergy to substance 07-08-20 04 Other: See Comments [facility] (20 sources) Erythromycin; 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: [erythromycin] Drug Allergy 06-05-20 02 Nausea Only, Unknown, Nausea/vomiting [facility] Repository (20 sources) levoFLOXacin; 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: [Levaquin] Drug Allergy 08-31-19 24 Other, Palpitations [facility] DO Work Phone: (20 sources) Ondansetron; 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: [Zofran] Drug Allergy [facility] Repository (20 sources) varenicline; 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: [Chantix TABS] Drug Allergy 08-31-19 24 Other, Unknown [facility] [employer] [place] 250 DO Work Phone: (20 sources) Adhesive Tape Propensity to adverse reactions to substance 07-08-20 12 Rash [facility] (20 sources) Ondansetron Drug Allergy 10-13-19 19 Intolerance, Other [facility] (20 sources) Latex Drug allergy 11-11-19 24 Unknown, Hives [facility] (5 sources) Adhesive Tape-Silicones; 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: [ADHESIVE TAPE-SILICONES] Drug Allergy 08-31-19 24 Other [facility] (2 sources) levoFLOXacin; 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: [LEVOFLOXACIN] Drug Allergy 08-31-19 24 [facility] Repository (2 sources) Ondansetron; 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: [ONDANSETRON HCL] Drug Allergy 08-31-19 24 [facility] Repository (2 sources) varenicline; 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: [VARENICLINE] Drug Allergy 08-31-19 24 [facility] Repository (3 sources) Azithromycin Drug Allergy 10-05-19 24 [facility] (1 source) Latex Drug allergy (disorder) 11-11-19 [facility] Repository Encounters Encounter Date Encounter Type Care Provider Facility Start: 01-24-2024 End: 01-24-2024 Emergency department patient visit MD Tanner Mae Jr Work Phone: [facility]-Emer[facility] Room Work Phone: Start: 01-04-2024 End: 01-07-2024 ambulatory LIAM HYMAN [facility] Start: 11-11-2023 End: 11-11-2023 ambulatory DO Darian Smiley Work Phone: [facility] Work Phone: Start: 11-11-2023 End: 11-11-2023 Patient encounter procedure DO Darian Ninizelisatz Work Phone: [facility] Work Phone: Start: 10-12-2023 End: 10-13-2023 ambulatory [facility] Start: 10-12-2023 End: 10-12-2023 Subsequent hospital visit by physician Heydi Jiang [facility] Medication Management Comment on above: Longstanding persist ent atrial fibrillation (HCC) (Primary Dx) Start: 10-11-2023 End: 10-12-2023 ambulatory [facility] Start: 10-11-2023 End: 10-11-2023 Subsequent hospital visit by physician Marcelo Champagne [facility] Work Phone: [facility] Medication [facility] Start: 10-06-2023 ambulatory Arjun EPPS Facility :[facility] Start: 10-05-2023 End: 10-07-2023 ambulatory [facility] Start: 10-05-2023 End: 10-07-2023 Emergency department patient visit Noman Glover MD Work Phone: [facility] Comment on above: Hypokalemia (Primary Dx); Dizziness; Longstanding persistent atrial fibrillation (HCC) Start: 09-29-2023 End: 09-29-2023 ambulatory [facility] Start: 09-29-2023 End: 09-29-2023 Subsequent hospital visit by physician Margareth Nunez MD Work Phone: [facility] Comment on above: Biventricular implan table cardioverter-defibrillator (ICD) in situ (Primary Dx); Elective replacement of implantable cardioverter-defibrillator (ICD) battery required; Atrial tachycardia; Paroxysmal atrial fibrillation (CMS/HCC); CAD (coronary artery disease); VT (ventricular tachycardia) (CMS/HCC) Start: 09-27-2023 End: 09-27-2023 ambulatory Amanda Grace Other [facility] Other Start: 09-27-2023 Telephone encounter Amanda Herzog her [facility] Start: 09-22-2023 End: 09-22-2023 ambulatory Amanda Grace Other [facility] Other Start: 09-22-2023 Telephone encounter Amanda Herzog her [facility] Start: 09-03-2023 ambulatory MARGARETH NUNEZ [facility] Start: 09-02-2023 End: 09-03-2023 [facility] Start: 09-02-2023 End: 09-02-2023 Subsequent hospital visit by physician [facility] Comment on above: ICD (implantable car dioverter-defibrillator) battery depletion Start: 08-31-2023 End: 08-31-2023 ambulatory Amanda Grace Other [facility] Other Start: 08-31-2023 Telephone encounter Amanda Mino her [facility] Start: 08-09-2023 End: 08-09-2023 Patient encounter procedure BIRD TRAPPERAlfredo Grace Work Phone: [facility] Start: 08-09-2023 End: 08-09-2023 ambulatory PETE Grace Work Phone: [facility] Work Phone: Comment on above: Persistent atrial fi brillation (HCC) (Primary Dx) Start: 08-02-2023 End: 08-02-2023 ambulatory Amanda Grace Other [facility] Other Start: 08-02-2023 Telephone encounter Amanda Mino her [facility] Start: 07-28-2023 Telephone encounter David Osei MD Work Phone: Cardiology Start: 07-25-2023 Follow-up encounter David Osei MD Work Phone: [facility] Start: 07-25-2023 ICD Remote F/U David fairbanks MD Work Phone: [facility] Department Start: 07-07-2023 ambulatory Arjun EPPS Facility : [facility] Start: 06-04-2023 ambulatory Arjun EPPS Facility : [facility] Start: 06-03-2023 ambulatory Arjun EPPS Facility:[facility] Start: 04-30-2023 Follow-up encounter David Osei MD Work Phone: [facility] Start: 04-30-2023 ICD Remote F/U David fairbanks MD Work Phone: [facility] Start: 04-17-2023 Follow-up encounter David Osei MD Work Phone: [facility] Start: 04-17-2023 ICD Remote F/U David fairbanks MD Work Phone: [facility] Start: 04-05-2023 Follow-up encounter David Osei MD Work Phone: [facility] Start: 04-05-2023 ICD Remote F/U David fairbanks MD Work Phone: [facility] Start: 03-29-2023 Rx Renewal Shaikh Kathiemonserrat Work Phone: [facility] [address] DO Work Phone: Start: 03-24-2023 Follow-up encounter David Osei MD Work Phone: [facility] Start: 03-24-2023 ICD Remote F/U David fairbanks MD Work Phone: [facility] Start: 03-20-2023 Follow-up encounter David Osei MD Work Phone: [facility] Start: 03-20-2023 ICD Remote F/U David fairbanks MD Work Phone: [facility] Start: 03-15-2023 ambulatory Margareth Nunez M.D. Facility : Start: 02-28-2023 Follow-up encounter David Osei MD Work Phone: [facility] Start: 02-28-2023 ICD Remote F/U David fairbanks MD Work Phone: [facility] Start: 02-25-2023 Follow-up encounter David Osei MD Work Phone: [facility] Start: 02-25-2023 ICD Remote F/U David fairbanks MD Work Phone: [facility] Start: 01-28-2023 AUDIT Roy Fawwad Work Phone: [facility] DO Work Phone: Start: 01-27-2023 End: 01-27-2023 ambulatory ROY H FAWWAD Facility:H1 Start: 01-26-2023 Rx Renewal Roy Fawwad Work Phone: [facility] DO Work Phone: Start: 01-03-2023 End: 01-03-2023 ambulatory ROY H FAWWAD Facility:H1 Start: 12-28-2022 End: 01-27-2023 ambulatory ROY H FAWWAD Facility:H1 Start: 11-30-2022 End: 12-25-2022 ambulatory ROY H FAWWAD Facility:H1 Start: 11-25-2022 Follow-up encounter David Osei MD Work Phone: [facility] Start: 11-25-2022 ICD Remote F/U David fairbanks MD Work Phone: [facility] Start: 10-28-2022 End: 11-27-2022 ambulatory [...] Follow-up encounter David Osei MD Work Phone: [facility] Start: 08-17-2022 ICD Remote F/U David fairbanks MD Work Phone: [facility] Start: 07-30-2022 End: 08-30-2022 ambulatory ROY H FAWWAD Facility:H1 Start: 07-27-2022 ambulatory Britta Tang [facility] Comment on above: Opened In Error Start: 06-30-2022 End: 07-29-2022 ambulatory ROY H FAWWAD Facility:H1 Start: 06-29-2022 Other Shaikh Kathiewad Work Phone: [facility] DO Work Phone: Start: 06-29-2022 Follow-up encounter David Osei MD Work Phone: [facility] Start: 06-29-2022 ICD Remote F/U David fairbanks MD Work Phone: [facility] Start: 05-31-2022 End: 06-29-2022 ambulatory ROY H FAWWAD Facility:H1 Start: 05-28-2022 Follow-up encounter David Osei MD Work Phone: [facility] Start: 05-28-2022 ICD Remote F/U David fairbanks MD Work Phone: [facility] Start: 05-06-2022 Patient encounter procedure Royshawna Rojas Work Phone: [facility] DO Work Phone: Start: 04-30-2022 End: 05-30-2022 ambulatory SHAIKH Shawna VÁZQUEZWAD Facility:H1 Start: 04-24-2022 Current tobacco non-user cad cap copd pv dm [facility] Work Phone: [facility] DO Work Phone: Start: 04-23-2022 End: 04-24-2022 ambulatory ROY Shawna NOD Facility:H1 Start: 04-16-2022 End: 04-17-2022 ambulatory [facility] KATHIEMDD Facility:H1 Start: 04-09-2022 Follow-up encounter David Osei MD Work Phone: [facility] Start: 04-09-2022 ICD Remote F/U David fairbanks MD Work Phone: [facility] Start: 04-07-2022 Telephone encounter No PCP None [facility] DO Work Phone: Start: 03-30-2022 End: 04-29-2022 ambulatory ROY Shawna NOD Facility:H1 Start: 03-12-2022 Rx Renewal No PCP None [facility] DO Work Phone: Start: 03-02-2022 End: 03-27-2022 ambulatory ROY Shawna NOD Facility:H1 Start: 02-24-2022 Telephone encounter No PCP None [facility] DO Work Phone: Start: 02-18-2022 Rx Renewal No PCP None [facility] DO Work Phone: Start: 02-17-2022 Patient encounter procedure No PCP None [facility] DO Work Phone: Start: 01-22-2022 Chart Update No PCP None [facility] [facility] [address] [place] Work Phone: Start: 01-08-2022 Follow-up encounter David Osei MD Work Phone: [facility] Start: 01-08-2022 ICD Remote F/U David fairbanks MD Work Phone: [facility] Start: 01-07-2022 AUDIT No PCP None -[facility] [facility] DO Work Phone: Start: 12-31-2021 End: 12-31-2021 ambulatory Jeane Fitt Other [facility] Other Start: 12-31-2021 Telephone encounter Jeane Juan [facility] Start: 12-26-2021 End: 12-26-2021 ambulatory Jeane Fitt Other [place] Other Start: 12-26-2021 Telephone encounter Jeane Juan [facility] Start: 12-23-2021 ([facility] R A/c) [facility] Repeat A/C Jeane Dykes [facility] Start: 12-23-2021 End: 12-23-2021 ambulatory Jeane Fitt Other [place] Other Start: 12-17-2021 (Repeat [facility]) Jeane Dykes [facility] Start: 12-17-2021 End: 12-17-2021 ambulatory Jeane Fitt Other [place] Other Start: 12-17-2021 Telephone encounter Jeane Juan [facility] Start: 12-12-2021 AUDIT No PCP None [place] [facility] [facility] DO Work Phone: Start: 12-11-2021 End: 12-11-2021 ambulatory Jeane Fitt Other [place] Other Start: 12-11-2021 Telephone encounter Jeane Juan [facility] Start: 12-10-2021 (Repeat [facility]) Jeane [facility] Start: 12-10-2021 End: 12-10-2021 ambulatory Jeane Fitt Other [place] Other Start: 12-05-2021 Current tobacco non-user cad cap copd pv dm No PCP None [facility] DO Work Phone: Start: 11-26-2021 End: 11-26-2021 ambulatory Jeane Fitt Other [place] Other Start: 11-26-2021 Telephone encounter Jeane Juan [facility] Start: 11-19-2021 (Repeat [facility]) Jeane Dykes [facility] Start: 11-19-2021 End: 11-19-2021 ambulatory Jeane Fitt Other [place] Other Start: 11-19-2021 Telephone encounter Jeane Juan [facility] Start: 11-18-2021 End: 11-18-2021 ambulatory Jeane Fitt Other [place] Other Start: 11-18-2021 Telephone encounter Jeane Juan [facility] [facility] Start: 11-11-2021 ([facility] R A/c) [facility] Repeat A/C Jeane Juan [facility] Start: 11-11-2021 End: 11-11-2021 ambulatory Jeane Fitt Other [place] Other Start: 11-10-2021 End: 11-10-2021 ambulatory Jeane Fitt Other [place] Other Start: 11-10-2021 Telephone encounter Jeane Juan [facility] Start: 11-05-2021 (Repeat [facility]) Jeane Dykes [facility] Start: 11-05-2021 End: 11-05-2021 ambulatory Jeane Fitt Other [place] Other Start: 11-03-2021 End: 11-03-2021 ambulatory Jeane Fitt Other [place] Other Start: 11-03-2021 Telephone encounter Jeane Jania Higu[facility] Start: 10-30-2021 End: 10-30-2021 ambulatory Jeane Fitt Other [place] Other Start: 10-30-2021 Telephone encounter Jeane Dykes [facility] Start: 10-29-2021 (Repeat [facility]) Jeane Dykes [facility] Start: 10-29-2021 End: 10-29-2021 ambulatory Jeane Fitt Other [place] Other Start: 10-29-2021 Telephone encounter Jeane Dykes [facility] Start: 10-23-2021 (Repeat [facility]) Jeane Dykes [facility] Start: 10-23-2021 End: 10-23-2021 ambulatory Jeane Fitt Other [place] Other Start: 10-22-2021 Patient encounter procedure Nadir Hoskins DO Work Phone: [facility] DO Work Phone: Start: 10-13-2021 Evaluation and management of inpatient DO Darian Smiley Work Phone: [facility] [place] [facility] Start: 09-09-2021 End: 09-09-2021 ambulatory Jeane Fitt Other [place] Other Start: 09-09-2021 Telephone encounter Jeane Higuera [facility] Start: 09-04-2021 ([facility] R A/c) [facility] Repeat A/C Jeane Juan [facility] Start: 09-04-2021 End: 09-04-2021 ambulatory Jeane Fitt Other [place] Other Start: 09-04-2021 Telephone encounter Jeane Higuera [facility] Start: 09-04-2021 Registered Recurring DO Sena Smiley Work Phone: [facility] Start: 08-04-2021 End: 08-04-2021 ambulatory Jeanealfredo Rogelt Other [place] Other Start: 08-04-2021 Telephone encounter Jeane Dykes [facility] Start: 07-28-2021 Patient encounter procedure Nadir Hoskins DO Work Phone: -[facility] DO Work Phone: Start: 07-17-2021 ([facility] R A/c) [facility] Repeat A/C Jeane Dykes [facility] Start: 07-17-2021 End: 07-17-2021 ambulatory Jeane Fitt Other [place] Other Start: 06-30-2021 ([facility] R A/c) [facility] Repeat A/C Jeane Juan [facility] Start: 06-30-2021 End: 06-30-2021 ambulatory Jeane Fitt Other [place] Other Start: 06-20-2021 Telephone encounter Jeane Higuera [facility] Start: 06-09-2021 ([facility] R A/c) [facility] Repeat A/C Jeane Jania [facility] Start: 11-23-2020 End: 11-25-2020 Evaluation and management of inpatient Darian Itzkowitz -[facility] [place] [facility] Start: 09-17-2020 Registered Recurring Darian Itnehalkowi tz -[place] [facility] Start: 08-16-2020 End: 08-17-2020 Evaluation and management of inpatient Darian Itzkowitz -[facility] [place] [facility] Start: 08-05-2020 Registered Recurring Darian Itzkowi tz -[place] [facility] Start: 07-26-2020 End: 07-26-2020 Emergency department patient visit Darian Itzkowitz -Emergency Room Start: 07-22-2020 End: 07-22-2020 Emergency department patient visit Darian Itzkowitz -Emergency Room Start: 07-19-2020 End: 07-19-2020 Emergency department patient visit Darian Itzkowitz -Emergency Room Start: 06-15-2020 End: 06-15-2020 Evaluation and management of inpatient Darian Itzkowitz -4 [place] [facility] Start: 06-05-2020 End: 06-07-2020 Evaluation and management of inpatient Darian Itzkowitz -3 [place] [facility] Start: 11-08-2019 ambulatory UNKNOWN PROVIDER Facili ty:[facility] Start: 10-12-2018 End: 10-12-2018 Patient encounter procedure MARGARETH MAYRA Facility:[facility] Start: 10-07-2018 Patient encounter procedure JAMEEL VALENZUELA Facility:[id number] Start: 08-04-2018 End: 08-05-2018 Patient encounter procedure MARGARETH MAYRA Facility:[facility] Start: 08-02-2018 Patient encounter procedure AGUILA VASQUEZ Facility:[id number] Start: 06-27-2018 End: 07-01-2018 Evaluation and management of inpatient MARGARETH MAYRA Facility:[facility] Start: 05-12-2018 End: 05-12-2018 Patient encounter procedure MARGARETH MAYRA [facility] Start: 11-29-2003 Evaluation and management of inpatient Darian Itzkowitz -4 [place] [facility] Patient encounter status No PCP None -[facility] [facility] DO Work Phone: Medical Equipment Procedure Code Equipment Code Equipment Origin al Text Equipment Identifier Dates [place] Ptfe 1.2 Cm X 10 Cm - [id number] Start: 07-13-2012 Comment on above: Description: pledgets for suture line re inforcement Valve 27mm Therm afix Pericardi - [id number] Start: 07-13-2012 Comment on above: Description: Mitral valve replacement wi th 27 mm Cornell Lang tissue valve Valve Orquidea 3 Commander Lang 26mm Aortic Transcatheter Ultra Low - [id number] Start: 03-17-2021 Defibrillator, Auxiliary Power Equipment Operator-D, Claria Mri, Surescan, Df1 - [id number] - [id number] Start: 09-29-2023 Goals Date Patient Goal Desired Activity /State Immunizations Immunization Date Immunization Notes Care Provider Fa cili 12-09-2020 Pfizer-BioNTech COVID-19 Vacc 30 MCG/0.3ML Intramuscular Suspension Nadir Hoskins DO Work Phone: [facility] 11-18-2020 COVID-19 vaccine, ag e 12+ yr (PFIZER-BIONTECH - PURPLE TOP) David Osei MD Work Phone: [facility] 06-09-2020 pneumococcal polysaccharide vaccine, 23 valent David Osei MD Work Phone: [facility] 06-07-2020 influenza, seasonal, injectable David Osei MD Work Phone: [facility] 06-07-2020 influenza virus vaccine, unspecified formulation David Osei MD Work Phone: [facility] 06-06-2020 influenza, injectabl e, quadrivalent, preservative free Darian Ninizbenny [facility] 06-06-2020 influenza virus vaccine, unspecified formulation Anju Cuevas DMD Work Phone: [facility] 08-31-2019 Influenza, injectabl e, Madin Denise Canine Kidney, preservative free, quadrivalent Darian Itzbenny [facility] 08-30-2019 influenza virus vaccine, unspecified formulation Nadir Hoskins DO Work Phone: [facility] 250 DO Work Phone: 06-29-2018 influenza, injectabl e, quadrivalent, preservative free David Osei MD Work Phone: [facility] 06-27-2018 influenza virus vaccine, unspecified formulation Nadir Hoskins DO Work Phone: [facility] 250 DO Work Phone: 06-17-2018 influenza, injectabl e, quadrivalent, preservative free Jeane Juan Ft Other [facility] 05-10-2017 influenza, seasonal, injectable, preservative free David Osei MD Work Phone: [facility] 05-03-2017 influenza, injectabl e, quadrivalent, preservative free David Osei MD Work Phone: [facility] 04-30-2017 influenza virus vaccine, unspecified formulation Nadir Hoskins DO Work Phone: [place] [id number] DO Work Phone: 05-08-2016 pneumococcal conjuga te vaccine, 13 valent David Osei MD Work Phone: [facility] 04-30-2016 influenza virus vaccine, unspecified formulation Nadir Hoskins DO Work Phone: [facility] 250 DO Work Phone: 04-30-2016 pneumococcal conjuga te vaccine, 7 valent Nadir Hoskins DO Work Phone: [facility] 250 DO Work Phone: 04-24-2016 influenza, seasonal, injectable, preservative free David Osei MD Work Phone: [facility] 05-30-2015 influenza virus vaccine, unspecified formulation Nadir Hoskins DO Work Phone: [facility] 250 DO Work Phone: 09-18-2013 influenza virus vaccine, unspecified formulation Nadir Hoskins DO Work Phone: [facility] 250 DO Work Phone: 02-05-2013 TD(adult) unspecifie d formulation David Osei MD Work Phone: [facility] 02-05-2013 Td, unspecified formulation Marcelo Champagne [facility] Work Phone: [facility] 08-30-2011 pneumococcal polysaccharide vaccine, 23 valent Nadir Hoskins DO Work Phone: -[facility] 250 DO Work Phone: influenza virus vaccine, unspecified formulation Nadir Hoskins DO Work Phone: -[facility] 250 DO Work Phone: Comment on above: 2008 2009 2010 2011 2012 pneumococcal polysaccharide vaccine, 23 valent Nadir Hoskins DO Work Phone: [facility] 250 DO Work Phone: Comment on above: 2008 Medications Current Medications Medication Drug Class(es) Dates Sig (Normalized) Sig (Original) Acetaminophen (13 sources) Start: 10-06-2023 acetaminophen (TYLENOL) tablet 650 mg Start: 10-05-2023 End: 10-05-2023 acetaminophen (TYLENOL) tabl et 1,000 mg Start: 09-29-2023 take 1 tablet by augusto every four hours as needed acetaminophen (Tylenol) tablet 650 mg Start: 06-07-2020 End: 11-23-2020 take 2 tablets by mouth every four hours Acetaminophen (Tylenol) 325 mg tablet Discontinued 650 MG PO Q4H June 07, 2020 12:00am November 23, 2020 4:58pm acetaminophen 325 mg / butalbital 50 mg / caffeine 40 mg oral tablet (20 sources) Barbiturate, Central Nervous System Stimulant, Methylxanthine Start: 10-07-2023 End: 10-07-2023 take 1 tablet by mouth every four hours as needed for headache gybgmkafcm-ssmiralstfcjh-qigxdjzk (FIORICET, ESGIC) 50-325-40 MG per tablet Take 1 tablet by mouth every 4 hours as needed for Headaches 30 tablet 0 10/07/2023 Active Start: 10-06-2023 take 1 capsule by mo uth every four hours as needed 1 capsule, Oral, EVERY 4 HOURS PRN, Starting on Wed10/06/23 at 0034, Until Discontinued, Headaches Maximum dose of acetaminophen is 4000 mg from all sources in 24 hours. Start: 07-19-2020 Butalbital-Adele taminophen-Caff (Fioricet) 50-300-40 mg capsule Active 1 CAP PO As Directed July 19, 2020 7:56am Start: 07-19-2020 take 1 capsule by mo uth twice daily Szbmllhfrb-Ebvfjytdjonbc-Ficn (Fioricet) 50-300-40 mg capsule Active 1 CAP PO Twice daily July 19, 2020 1:00am Start: 06-07-2020 End: 06-15-2020 take 1 tablet by mouth every eight hours Onuuqxmyyb-Zgznaqrvcrbwj-Luml Discontinued 1 TAB PO Q8H June 07, 2020 12:00am June 15, 2020 11:49am Start: 04-26-2020 End: 06-07-2020 take 1 capsule by mouth every eight hours as needed Oxjeellzor-Jhwnrjciblwqi-Uktt (Fioricet) 50-300-40 mg capsule Discontinued 1 CAP PO Q8H April 26, 2020 12:00am June 07, 2020 6:06pm TK ONE C PO Q 8 H PRN Start: 09-01-2019 End: 04-26-2020 take 1 tablet by mouth three times daily Ktopxcktka-Sjjlijopdmcsi-Dphb Discontinued 1 TAB PO Three times daily 0 September 01, 2019 1:00am April 26, 2020 2:48pm amiodarone hydrochloride 200 mg oral tablet (20 sources) Antiarrhythmic Start: 07-23-2023 End: 03-27-2024 take 200 mg by mouth once daily in the morning Amiodarone Active 200 MG PO Every morning January 24, 2024 12:00am Start: 11-16-2021 End: 01-24-2024 take 400 mg by mouth once daily in the morning Amiodarone Discontinued 400 MG PO Every morning 60 November 16, 2021 12:00am January 24, 2024 12:53am Start: 11-12-2021 End: 11-16-2021 Amiodarone (Pacerone) 200 mg tablet Discontinued 100 MG PO Twice daily November 12, 2021 12:13am November 16, 2021 12:19pm Start: 09-11-2019 End: 11-12-2021 take 200 mg by mouth once daily Amiodarone Discontinue d 200 MG PO Daily October 17, 2021 1:44pm November 12, 2021 12:13am Start: 05-09-2018 End: 10-17-2021 take 200 mg by mouth twice daily Amiodarone Discontinued 200 MG PO Twice daily November 23, 2020 12:00am October 17, 2021 1:48pm take 4 tablets by mo uth once daily amiodarone (PACERONE) 100 MG tablet Take 4 tablets by mouth daily 0 Active take 1 tablet by augusto th every twenty-four hours Amiodarone HCl 400 MG 1 tablet Orally Once a day for 90 days Active Comment on above: Take 1 tablet by augusto th twice daily. aspirin 81 mg delayed release oral tablet (20 sources) Platelet Aggregation Inhibitor, Nonsteroidal Anti-inflammatory Drug Start: 10-06-2023 aspirin 81 mg EC tablet Indications: Atrial tachycardia , CAD (coronary artery disease) Take 1 tablet (81 mg) by mouth once daily. HOLD for 1 week. May resume on 10/06/2023. Do not start before October 06, 2023. 0 10/06/2023 Active Start: 03-20-2021 End: 01-24-2024 take 1 tablet by mouth once daily Aspirin (Shandra Chewable Aspirin) 81 mg Tablet,Chewable Discontinued 81 MG PO Daily October 14, 2021 1:00am January 24, 2024 12:51am Start: 08-29-2019 End: 11-25-2020 take 81 mg by mouth once daily Aspirin Discontinued 81 MG PO Daily June 07, 2020 12:00am November 25, 2020 6:28pm End: 09-29-2023 take 1 tablet by mouth once daily aspirin 81 mg EC tablet Take 1 tablet (81 mg) by mouth once daily. 0 09/29/2023 Discontinued (Reorder) Comment on above: Chew and swallow 1 t ablet by mouth once daily. bacitracin 0.5 unt/mg topical ointment (2 sources) Start: 02-06-20 13 bacitracin 500 UNIT/GM ointment Apply topically 2 times daily. 30 g 0 02/05/2013 Active Boost - (5 sources) Boost - as direc janis Orally Active cetirizine hydrochloride 10 mg oral tablet (20 sources) Histamine-1 Receptor Antagonist take 1 tablet by mouth once daily cyclobenzaprine hydrochloride 10 mg oral tablet (3 sources) Muscle Relaxant Start: 01-24-20 take 10 mg by mouth every eight hours Cyclobenzaprine Active 10 MG PO Every 8 hours January 24, 2024 12:00am take 1 tablet by augusto th twice daily as needed cyclobenzaprine (FLEXERIL) 10 MG tablet Take 10 mg by mouth 2 times daily as needed. 0 Active doxycycline hyclate 100 mg oral capsule (3 sources) Tetracycline-class Drug Start: 11-11-2023 End: 01-24-2024 take 100 mg by mouth twice daily Doxycycline Hyclate Active 100 MG PO Twice daily 14 January 24, 2024 12:00am 0.6 ml enoxaparin sodium 100 mg/ml prefilled syringe (15 sources) Low Molecular Weight Heparin Start: 01-24-2024 Enoxaparin (Lovenox) 60 mg/0.6 mL syringe Active 60 MG SUBCUT Every 12 hours 6 January 24, 2024 12:00am Start: 10-06-2023 enoxaparin (LO VENOX) 80 MG/0.8ML Inject 0.7 mLs into the skin 2 times daily 14 each 0 10/06/2023 Active Start: 10-06-2023 enoxaparin (LO VENOX) injection 70 mg Start: 06-15-2020 End: 06-15-2020 inject 80 mg by subcutaneous injection every twelve hours Enoxaparin Discontinued 80 MG SUBCUT Q12H June 15, 2020 12:00am June 15, 2020 7:37pm FLUoxetine 40 mg oral capsule (14 sources) Serotonin Reuptake Inhibitor Start: 11-11-2023 take 40 mg by mouth once daily Fluoxetine Active 40 MG PO Daily November 11, 2023 12:00am Start: 10-06-2023 take 40 mg by mouth once daily 40 mg, Oral, DAILY, First dose on Wed10/06/23 at 0900, Until Discontinued Start: 07-13-2023 take 1 capsule by mo uth once daily FLUoxetine (PROzac) 40 mg capsule Take 1 capsule (40 mg) by mouth once daily. 0 07/13/2023 Active take 4 capsules by m outh once daily FLUoxetine (PROZAC) 10 MG capsule Take 4 capsules by mouth daily 0 Active 24 hr isosorbide mononitrate 30 mg extended release oral tablet (20 sources) Nitrate Vasodilator Start: 11-22-2021 take 30 mg by mouth once daily Isosorbide Mononitrate Active 30 MG PO Daily November 22, 2021 12:00am levothyroxine sodium 0.075 mg oral tablet (14 sources) l-Thyroxine Start: 11-11-2023 take 75 ug by mouth once daily Levothyroxine Active 75 MCG PO Daily November 11, 2023 12:00am Start: 07-20-2023 take 75 ug by mouth once daily 75 mcg, Oral, DAILY, First dose on Wed10/06/23 at 0700, Until Discontinued Tube feeding (TF) interaction, obtain physician order to manage, recommend holding TF for 30 minutes before and after dose. take 1 tablet by augusto th once daily in the morning Levothyroxine Sodium 75 MCG 1 tablet in the morning on an empty stomach Orally Once a day for 90 days Active LORazepam 0.5 mg oral tablet (16 sources) Benzodiazepine Start: 11-12-2021 take 1 tablet by mouth three times daily Lorazepam (Ativan) 0.5 mg Tablet Active 0.5 MG PO Three times daily November 12, 2021 12:00am 50 ml magnesium sulfate 40 mg/ml injection (1 source) Start: 10-06-2023 2,000 mg, IntraVENous, at 25 mL/hr, Administer over 2 Hours, PRN, Other, Magnesium Replacement, Starting on Wed10/06/23 at 0008 [facility] Replacement Action 1.4-1.6 mg/dL &a mp;nbsp; 2,000 mg Total Dose Given as 1,000 mg IVPB x 2 doses or 2,000 mg IVPB x 1 dose &nb sp; &nbs p; &nbsp ; & nbsp; &nbs p;1.0-1.3 mg/dL 4,000 mg Total Dose &nb sp; &nbs p; &nbsp ; Given as 1,000 mg IVPB x 4 doses or 2,000 mg IVPB x 2 doses Le ss than 1.0 mg/dL CALL PHYSICIAN and give &nb sp; &nbs p; &nbsp ; & nbsp; 4,000 mg Total Dose &nb sp; &nbs p; &nbsp ; & nbsp; Given as 1,000 mg IVPB x 4 doses or 2,000 mg IVPB x 2 doses &n bsp;Infuse at 1,000 mg/hr Repeat Mag level next AM Protocol not for use in Patients with CrCl less than 30ml/min meclizine hydrochloride 25 mg oral tablet (2 sources) Antiemetic take 1 tablet by mouth three times daily as needed meclizine (ANTIVERT) 25 MG tablet Take 25 mg by mouth 3 times daily as needed. 0 Active Multivitamin Adult - (20 sources) take 1 [...] With Folic Acid (Thera) 400 mcg Tablet (10 sources) Start: 06-07-2020 take 1 tablet by [...] extended release oral tablet (20 sources) Start: 10-12-2023 take 1 tablet by mouth once daily potassium chloride (KLOR-CON M) 20 MEQ extended release tablet Take 1 tablet by mouth daily 30 tablet 0 10/12/2023 Active Start: 10-08-2023 take 20 mEq by mouth once jing y potassium chloride (KLOR-CON) 20 MEQ packet Take 20 mEq by mouth daily 30 each 0 10/08/2023 Active Start: 10-06-2023 potassium chlo ride (KLOR-CON M) extended release tablet 20 mEq Start: 10-06-2023 potassium chlo ride (KLOR-CON M) extended release tablet 40 mEq Start: 10-05-2023 End: 10-06-2023 potassium chloride 10 mEq/10 0 mL IVPB (Peripheral Line) Start: 09-29-2023 End: 09-29-2023 potassium chloride 20 mEq in 100 mL IV premix Start: 09-14-2023 potassium chlo ride CR 20 mEq ER tablet Indications: Chronic systolic congestive heart failure (CMS/HCC) Take one tablet twice a day 180 tablet 3 09/14/2023 Active Start: 09-02-2023 potassium chlo ride CR 20 mEq ER tablet Indications: Chronic systolic congestive heart failure (CMS/HCC) Take one tablet twice a day x 3 days then one tablet daily 90 tablet 3 09/02/2023 Active Start: 04-16-2022 take 1 tablet by once daily Potassium Chloride Sarah ER 20 MEQ Oral Tablet Extended Release TAKE 1 TABLET DAILY. Quantity: 0 Refills: 0 Ordered: 16-Apr-2022 DO Start : 16-Apr-2022 Active Start: 10-30-2021 Potassium Chlo ride ER 10 MEQ Oral Tablet Extended Release Quantity: 10 Refills: 0 Ordered: 30-Oct-2021 DO Start : 30-Oct-2021 Complete Start: 10-30-2021 End: 01-24-2024 Potassium Chloride (Klor-Con 10) 10 mEq tablet extended release Discontinued 10 MEQ PO Daily November 13, 2021 6:49pm January 24, 2024 12:52am Start: 11-23-2020 End: 10-14-2021 take 10 mEq by mouth twice daily Potassium Chloride Discontinued 10 MEQ PO Twice daily November 23, 2020 12:00am October 14, 2021 1:11pm Start: 07-22-2020 End: 08-16-2020 take 10 mEq by mouth once daily Potassium Chloride Dis continued 10 MEQ PO Daily July 22, 2020 1:00am August 16, 2020 8:11pm Start: 06-15-2020 End: 07-19-2020 Potassium Chloride (Klor-Con M20) 20 mEq tablet,ER particles/crystals Discontinued 10 MEQ PO Three times daily June 15, 2020 11:46am July 19, 2020 8:55am Start: 06-07-2020 End: 06-15-2020 Potassium Chloride (Klor-Con M20) 20 mEq Tablet,Er Particles/Crystals Discontinued 20 MEQ PO Three times daily June 07, 2020 12:00am June 15, 2020 11:46am Start: 05-09-2018 End: 06-07-2020 take 1 tablet by mouth three times daily Potassium Chloride (K-Tab) 20 mEq Tablet Extended Release Discontinued 20 MEQ PO Three times daily May 09, 2018 12:00am June 07, 2020 6:06pm take 20 mEq by mouth twice daily potassium chloride (KLOR-CON) 20 MEQ packet Take 20 mEq by mouth 2 times daily 0 Active take 1 capsule by mo [facility] every twelve hours Potassium Chloride ER 10 MEQ 1 capsule with food Orally Twice a day Active Potassium Chlori de ER 20 MEQ Oral Tablet Extended Release TAKE 2 TALBET TWICE DAILY X 2 DAYS 12/30 AND 12/31/2021, THEN 2 TABLETS DAILY Quantity: 2 Refills: 0 Ordered: 30-Dec-2021 Bianca FREEMAN-BANDAGE WRAPPING MACHINE OPERATORJameel Active take 1 tablet by augusto th once daily Potassium Chloride ER 20 MEQ Oral Tablet Extended Release take 1 talet once daily Quantity: 0 Refills: 0 Ordered: 05-Dec-2021 DO Active promethazine (PHENERGAN) 12.5 mg in sodium chloride 0.9 % 50 mL IVPB (1 source) Start: 10-06-2023 promethazine (PHENERGAN) 12.5 mg in sodium chloride 0.9 % 50 mL IVPB rOPINIRole 2 mg oral tablet (20 sources) Nonergot Dopamine Agonist Start: 10-07-2023 take 1 tablet by mouth once daily rOPINIRole (REQUIP) 2 MG tablet Take 1 tablet by mouth nightly 30 tablet 0 10/07/2023 Active Start: 10-06-2023 rOPINIRole (RE QUIP) tablet 2 mg Start: 03-19-2021 take 1 tablet by augusto th once daily at dinner, then take 2 tablets by mouth once daily at bedtime rOPINIRole (REQUIP) 0.25 mg tablet Take 1 tablet by mouth once daily at dinner and take 2 tablets by mouth once daily at bedtime 21 tablet 0 03/19/2021 Active Start: 11-25-2020 End: 10-14-2021 Ropinirole Discontinued 2 MG PO As Directed 90 November 25, 2020 12:00am October 14, 2021 12:05pm Take 1 at supper with 2 at bedtime. Start: 06-15-2020 take 1 tablet by augusto th once daily at bedtime, then take 2 tablets by mouth at bedtime Ropinirole Active 0.75 MG PO Daily at bedtime June 15, 2020 12:00am 1 TABLET AT DINNER AND 2 TABLETS AT HS Start: 04-26-2020 End: 06-15-2020 take 2 mg by mouth once daily Ropinirole Discontinued 2 MG PO Daily with supper June 07, 2020 12:00am June 15, 2020 11:46am Start: 04-26-2020 End: 06-15-2020 take 4 mg by mouth once daily at bedtime Ropinirole Discontinued 4 MG PO Daily at bedtime June 07, 2020 12:00am June 15, 2020 11:46am Start: 05-09-2018 End: 10-07-2023 take 2 mg by mouth three times daily Ropinirole Discontinued 2 MG PO Three times daily 0 September 01, 2019 1:00am April 26, 2020 3:22pm take 3 tablets by mo [facility] once daily rOPINIRole (REQUIP) 0.25 MG tablet Take 0.75 mg by mouth nightly. 0 Active take 1 tablet by augusto th twice daily rOPINIRole HCl - 2 MG Oral Tablet TAKE 1 TABLET TWICE DAILY. Quantity: 0 Refills: 0 Ordered: 20-Oct-2021 DO Active Comment on above: Take 1 tablet by augusto th once daily at dinner and take 2 tablets by mouth once daily at bedtime topiramate 100 mg oral tablet (2 sources) take 2 tablets by mouth once daily at bedtime topiramate (TOPAMAX) 100 MG tablet Take 200 mg by mouth daily. At bedtime 0 Active torsemide 20 mg oral tablet (20 sources) Loop Diuretic Start: torsemide (Demadex) 20 mg tablet Indications: Chronic systolic congestive heart failure (CMS/HCC) , Biventricular implantable cardioverter-defibrilla tor (ICD) in situ , Ischemic cardiomyopathy Take two tablets daily. 60 tablet 09/14/2023 Active Start: 09-02-2023 torsemide (Dem adex) 20 mg tablet Indications: Biventricular implantable cardioverter-defibrillator (ICD) in situ , Chronic systolic congestive heart failure (CMS/HCC) , Ischemic cardiomyopathy Take one tablet twice a day x 3 days then one tablet daily. 30 tablet 11 09/02/2023 Active Start: 10-13-2021 End: 11-11-2023 take 20 mg by mouth once daily Torsemide Discontinued 20 MG PO Daily October 17, 2021 1:46pm November 11, 2023 4:21pm Start: 10-13-2021 End: 10-17-2021 take 40 mg by mouth once daily Torsemide Discontinued 40 MG PO Daily October 13, 2021 1:00am October 17, 2021 1:48pm Start: 09-03-2021 End: 09-03-2022 take 2 tablets by mouth once daily torsemide (DEMADEX) 20 mg tablet Take 2 tablets by mouth once daily. 180 tablet 3 09/03/2021 Active Comment on above: Take 2 tablets by mo [facility] once daily. traZODone hydrochloride 50 mg oral tablet (20 sources) Serotonin Reuptake Inhibitor Start: take 50 mg by mouth once daily at bedtime Trazodone Active 50 MG PO Daily at bedtime October 17, 2021 1:00am Start: 10-14-2021 End: 10-17-2021 take 200 mg by mouth once daily at bedtime Trazodone Discontinued 200 MG PO Daily at bedtime October 14, 2021 1:00am October 17, 2021 1:48pm Start: 06-15-2020 End: 10-14-2021 take 200 mg by mouth once daily at bedtime Trazodone Discontinued 200 MG PO Daily at bedtime June 15, 2020 11:49am October 14, 2021 1:06pm Start: 06-07-2020 End: 06-15-2020 take 300 mg by mouth once daily at bedtime Trazodone Discontinued 300 MG PO Daily at bedtime June 07, 2020 12:00am June 15, 2020 11:49am Start: 04-26-2020 End: 06-07-2020 Trazodone Discontinued 300 M G PO Daily at bedtime April 26, 2020 12:00am June 07, 2020 6:06pm TK 2 TS PO QHS Start: 08-22-2019 trazodone 150 MG tablet Start: 05-09-2018 End: 04-26-2020 take 150 mg by mouth once daily at bedtime Trazodone Discontinued 150 MG PO Daily at bedtime May 09, 2018 12:00am April 26, 2020 2:54pm take 2 tablets by mo uth once daily traZODone (DESYREL) 100 MG tablet Take 200 mg by mouth nightly. 0 Active take 2 tablets by mo uth every twenty-four hours venlafaxine 75 mg oral tablet (2 sources) Serotonin and Norepinephrine Reuptake Inhibitor take 1 tablet by mouth three times daily venlafaxine (EFFEXOR) 75 MG tablet Take 75 mg by mouth 3 times daily. 0 Active warfarin sodium 7.5 mg oral tablet (20 sources) Vitamin K Antagonist Start: End: warfarin (COUMADIN) tablet 7.5 mg Start: 10-01-2023 take 1 tablet by augusto once daily warfarin (Coumadin) 5 mg tablet Indications: Atrial tachycardia , Paroxysmal atrial fibrillation (CMS/HCC) TAKE 1 TO 1 & 1/2 TABLETS BY MOUTH ONCE DAILY DIRECTED. HOLD for 2 days. May resume on 10/01/2023. Do not start before October 01, 2023. 0 10/01/2023 Active Start: 07-27-2023 Warfarin Sodiu m 2 MG 1 tablet 2 days per week and 1.5 tablets 5 days per week Orally Once a day for 30 days M-W 2mg but all other days. 3mg dose Jun, Active Start: 11-13-2021 Warfarin ( oven) 5 mg tablet Active 7.5 MG PO SUTUTHSA November 13, 2021 12:00am Start: 10-13-2021 End: 10-14-2021 Warfarin Discontinued 2.5 MG PO As Directed October 13, 2021 4:55pm October 14, 2021 1:25pm Take 3 tablets at bedtime starting November 26 then daily until directed otherwise by Coumadin clinic. Start: 11-25-2020 End: 10-13-2021 Warfarin Discontinued 2 MG P O As Directed November 25, 2020 12:00am October 13, 2021 4:55pm Take 3 tablets at bedtime starting November 26 then daily until directed otherwise by Coumadin clinic. Start: 11-23-2020 Warfarin (Augt oven) 5 mg tablet Active 5 MG PO Q48H November 23, 2020 12:00am Start: 07-19-2020 End: 08-17-2020 Warfarin Discontinued 0 .ROU TE .COMPLEX July 19, 2020 1:00am August 17, 2020 12:23pm 7.5mg Wednesday, Wednesday,Wednesday. Start: 07-19-2020 End: 09-29-2023 Warfarin Discontinued 0 .ROU TE .COMPLEX July 19, 2020 1:00am August 17, 2020 12:23pm 5mg Wednesday,Wednesday and Wednesday. Start: 06-15-2020 End: 06-15-2020 Warfarin Discontinued 0 .ROU TE .COMPLEX June 15, 2020 12:00am June 15, 2020 7:37pm check with patient, tapering dose take 4 tablets by mouth once War farin Sodium 5 MG Oral Tablet as directed per [facility] Coumadin clinic Quantity: 0 Refills: 0 Ordered: 31-Dec-2021 DO Active Warfarin 2mg 2 m g as directed orally Active Warfarin Sodium 5 MG Oral Tablet as directed per [facility] Cou[facility] Quantity: 0 Refills: 0 Ordered: 20-Oct-2021 DO Active Comment on above: Take 1 tablet by augusto once daily. warfarin placeholder: dosing by pharmacy (1 source) Start: 10-06-2023 warfarin placeholder: dosing by pharmacy Completed/Discontinued Medications Medication Drug Class(es) Dates Sig (Normalized) Sig (Original) acetaminophen 325 mg / HYDROcodone bitartrate 5 mg oral tablet (20 sources) Opioid Agonist Start: 06-07-2020 End: 07-19-2020 take 1.5 tablets by mouth three times daily Hydrocodone-Acetami nophen Discontinued 1.5 TAB PO Three times daily June 15, 2020 11:46am July 19, 2020 8:53am Start: 06-05-2020 End: 06-07-2020 take 1 tablet by mouth once daily Hydrocodone-Acetaminophen ([place]) 5-325 mg Tablet Discontinued 1 TAB PO Daily June 05, 2020 12:00am June 07, 2020 6:06pm [id number] 200 actuat albuterol 0.09 mg/actuat metered dose inhaler (12 sources) beta2-Adrenergic Agonist Start: 10-06-2023 take 1 puff(s) by inhalation every four hours as needed 1 puff, Inhalation, EVERY 4 HOURS PRN, Starting on Wed10/06/23 at 0033, Until Discontinued, Wheezing Initiate RT Bronchodilator Protocol: Yes - Inpatient Protocol Start: 07-20-2023 albuterol 90 m cg/actuation inhaler take 1 puff(s) by [facility] every four hours as needed Albuterol Sulfate HFA 108 (90 Base) MCG/ACT INHALE ONE (1) PUFF BY MOUTH EVERY 4 HOURS NEEDED Inhalation for 30 Days Active take 1 puff(s) by mo ut every four hours as needed Albuterol Sulfate HFA 108 (90 Base) MCG/ACT INHALE ONE (1) PUFF BY MOUTH EVERY 4 HOURS NEEDED Inhalation for 30 Days Active amoxicillin 500 mg / clavulanate 125 mg oral tablet (10 sources) Penicillin-class Antibacterial Start: 09-01-2019 End: 04-26-2020 take 1 tablet by mouth three times daily Amoxicillin-Pot Clavulanate (Augmentin) 500-125 mg tablet Discontinued 1 TAB PO Three times daily September 01, 2019 1:00am April 26, 2020 2:47pm atorvastatin 80 mg oral tablet (20 sources) HMG-CoA Reductase Inhibitor Start: 07-18-2012 End: 10-11-2023 take 80 mg by mouth once daily Atorvastatin Discontinued 80 MG PO Daily June 07, 2020 12:00am July 19, 2020 8:56am Comment on above: Take 1 tablet by [facility] once daily. baclofen 5 mg oral tablet (6 sources) gamma-Aminobutyric Acid-ergic Agonist Start: 04-16-2022 take 1 tablet by mouth three times daily Baclofen 5 MG Oral Tablet TAKE 1 TABLET 3 times daily Quantity: 0 Refills: 0 Ordered: 16-Apr-2022 DO Start : 16-Apr-2022 Active benzonatate 100 mg oral capsule (10 sources) Non-narcotic Antitussive Start: 06-15-2020 End: 07-19-2020 take 200 mg by mouth three times daily Benzonatate Discontinued 200 MG PO Three times daily June 15, 2020 12:00am July 19, 2020 8:53am busPIRone hydrochloride 15 mg oral tablet (10 sources) Start: 04-26-2020 End: 04-26-2020 Buspirone Discontinued 15 MG PO Twice daily April 26, 2020 12:00am April 26, 2020 3:20pm TK 1 T PO BID carvedilol 3.125 mg oral tablet (20 sources) alpha-Adrenergic Edward, beta-Adrenergic Edward Start: 10-17-2021 End: 11-16-2021 take 1 tablet by mouth twice daily Carvedilol (Coreg) 3.125 mg tablet Discontinued 3.125 MG PO Twice daily October 30, 2021 4:43pm November 16, 2021 12:19pm Start: 09-01-2019 End: 10-17-2021 take 12.5 mg by mouth twice daily Carvedilol Discontinued 12.5 MG PO Twice daily June 07, 2020 12:00am October 17, 2021 1:48pm Start: 05-09-2018 End: 09-01-2019 take 1 tablet by mouth twice daily Carvedilol (Coreg) 6.25 mg Tablet Discontinued 6.25 MG PO Twice daily May 09, 2018 12:00am September 01, 2019 7:52pm cefTRIAXone (ROCEPHIN) 1,000 mg in sodium chloride 0.9 % 50 mL IVPB (mini-bag) (1 source) Start: 10-05-2023 End: 10-06-2023 cefTRIAXone (ROCEPHIN) 1,000 mg in sodium chloride 0.9 % 50 mL IVPB (mini-bag) cephalexin 500 mg oral capsule (7 sources) Cephalosporin Antibacterial Start: 11-25-2020 End: 10-14-2021 take 500 mg by mouth every eight hours Cephalexin Discontinued 500 MG PO Every 8 hours November 25, 2020 12:00am October 14, 2021 12:45pm start this evening chlorhexidine gluconate 40 mg/ml medicated liquid soap (2 sources) Start: 09-29-2023 End: 09-29-2023 chlorhexidine (Hibiclens) 4 % liquid Start: 10-20-2019 take 15 mL by mouth twice daily chlorhexidine (PERIDEX) 0.12 % oral solution Take 15 mL by mouth 2 times daily. 1 Bottle 1 10/20/2019 Active clonazePAM 0.5 mg oral tablet (20 sources) Benzodiazepine Start: 08-29-2019 End: 11-12-2021 take 0.5 mg by mouth three times daily Clonazepam Discontinued 0.5 MG PO Three times daily June 07, 2020 12:00am November 12, 2021 12:09am KlonoPIN Wafer [address] [...] Digoxin Discontinued 125 MCG PO Daily November 25, 2020 12:00am October 17, 2021 1:48pm take 1 tablet by mouth once jing y Digoxin 0.125 mg one tab orally daily Not-Taking escitalopram 20 mg oral tablet (20 sources) Serotonin Reuptake Inhibitor Start: 07-19-2020 End: 01-24-2024 take 1 tablet by mouth once daily Escitalopram Oxalate (Lexapro) 20 mg tablet Discontinued 20 MG PO Daily July 19, 2020 1:00am January 24, 2024 12:51am Start: 05-09-2018 End: 06-15-2020 take 20 mg by mouth once daily Escitalopram Oxalate Di scontinued 20 MG PO Daily June 07, 2020 12:00am June 15, 2020 11:55am esomeprazole 40 mg delayed release oral capsule (10 sources) Proton Pump Inhibitor Start: 05-09-2018 End: 09-01-2019 take 1 capsule by mouth twice daily Esomeprazole Magnesium (Nexium) 40 mg Capsule,Delayed Release(Dr/Ec) Discontinued 40 MG PO Twice daily May 09, 2018 12:00am September 01, 2019 7:52pm ferrous sulfate 324 mg delayed release oral tablet (20 sources) Start: 11-25-2020 End: 10-14-2021 take 324 mg by mouth twice daily Ferrous Sulfate Discontinued 324 MG PO Twice daily November 25, 2020 12:00am October 14, 2021 1:14pm Start: 06-15-2020 End: 07-19-2020 take 324 mg by mouth twice daily Ferrous Sulfate Discontinued 324 MG PO Twice daily 0 June 15, 2020 12:00am July 19, 2020 8:53am Start: 04-28-2020 End: 06-05-2020 take 324 mg by mouth twice daily Ferrous Sulfate Discontinued 324 MG PO Twice daily 0 April 28, 2020 12:00am June 05, 2020 1:33am furosemide 40 mg oral tablet (17 sources) Loop Diuretic Start: 11-11-2023 End: 01-24-2024 take 40 mg by mouth twice daily Furosemide Discontinued 40 MG PO Twice daily November 11, 2023 12:00am January 24, 2024 12:51am Start: 04-26-2020 End: 04-26-2020 Furosemide Discontinued TABL ET April 26, 2020 12:00am April 26, 2020 3:20pm take 1 tablet by augusto th twice daily Furosemide 40 MG TAKE 1 TABLET BY MOUTH TWICE DAILY for 30 Active iopamidol (ISOVUE-370) 76 % injection 75 mL (1 source) Start: 10-05-2023 End: 10-05-2023 iopamidol (ISOVUE-370) 76 % injection 75 mL Magnesium (18 sources) take 1 tablet by mouth twice daily Magnesium 400 MG Oral Tablet Take 1 tablet twice daily Quantity: 180 Refills: 3 Ordered: 20-Oct-2021 DO Active magnesium hydroxide 80 mg/ml oral suspension (1 source) Start: 10-06-2023 take 30 mL by mouth once daily as needed 30 mL, Oral, DAILY PRN, Starting on Wed10/06/23 at 0008, Until Discontinued, Constipation First line therapy for constipation. magnesium oxide 400 mg oral tablet (20 sources) Start: 10-06-2023 take 400 mg by mouth once daily 400 mg, Oral, DAILY, First dose on Wed10/06/23 at 0900, Until Discontinued Start: 06-15-2020 End: 01-24-2024 take 400 mg by mouth twice daily Magnesium Oxide Discontinued 400 MG PO Twice daily June 15, 2020 12:00am January 24, 2024 12:52am Start: 06-13-2020 take 1 tablet by augusto th twice daily magnesium oxide (MAG-OX) 400 mg (241.3 mg magnesium) tablet Take 1 tablet by mouth twice daily. 60 tablet 0 06/13/2020 Active Start: 05-09-2018 End: 04-26-2020 take 400 mg by mouth once daily Magnesium Oxide Discon tinued 400 MG PO Daily May 09, 2018 12:00am April 26, 2020 2:56pm take 1 tablet by augusto th every eight hours Comment on above: Take 1 tablet by augusto th twice daily. 24 hr memantine hydrochloride 28 mg extended release oral capsule (20 sources) V-yjcxsu-U-aspartat e Receptor Antagonist Start: 0 End: 2 take 1 capsule by mouth once daily Memantine (Namenda Xr) 28 mg Capsule,Sprinkle,Er 24hr Discontinued 28 MG PO Daily June 07, 2020 12:00am October 14, 2021 12:52pm Start: 05-09-2018 End: 04-26-2020 take 4 capsules by mouth once daily Memantine (Namenda Xr) 7 mg Cap,Sprinkle,Er 24hr Dose Pack Discontinued 28 MG PO Daily with supper May 09, 2018 12:00am April 26, 2020 2:50pm 24 hr metoprolol succinate 100 mg extended [...] Start : 26-Jan-2023 Active Start: 11-16-2021 take 100 mg by mouth once jing y Metoprolol Succinate Active 100 MG PO Daily November 16, 2021 12:00am take 1 tablet by augusto th at bedtime Metoprolol Succinate ER 100 MG Oral Tablet Extended Release 24 Hour TAKE 1 TABLET Bedtime Quantity: 90 Refills: 3 Ordered: 24-Apr-2022 Margareth Nunez MD Active metroNIDAZOLE 500 mg oral tablet (6 sources) Nitroimidazole Antimicrobial Start: 10-17-2021 metroNIDAZOLE 500 MG Oral Tablet Quantity: 8 Refills: 0 Ordered: 17-Oct-2021 DO Start : 17-Oct-2021 Complete Start: 10-17-2021 End: 10-30-2021 take 500 mg by mouth twice daily Metronidazole Discontinued 500 MG PO Twice daily 8 4 October 17, 2021 1:00am October 30, 2021 4:40pm Flagyl 250 MG TA BS TAKE 1 TABLET EVERY 6 HOURS DAILY. Quantity: 0 Refills: 0 Ordered: 20-Oct-2021 DO Active Multi Vitamin Oral Tablet (18 sources) take 1 tablet by mouth once daily Multi Vitamin Oral Tablet TAKE 1 TABLET DAILY. Quantity: 0 Refills: 0 Ordered: 20-Oct-2021 DO Active Multivitamin preparation (10 sources) Start: 04-26-2020 End: 06-07-2020 take 1 [...] 26, 2020 12:00am June 07, 2020 6:06pm mupirocin 0.02 mg/mg topical ointment (1 source) RNA Synthetase Inhibitor Antibacterial Start: 09-29-2023 End: 09-29-2023 mupirocin (Bactroban) 2 % ointment 1 Application nitroglycerin 0.4 mg sublingual tablet (20 sources) Nitrate Vasodilator Start: 05-09-2018 End: 10-14-2021 Nitroglycerin Discontinued 0.4 MG SUBLINGUAL Every 5 minutes x 3 doses June 07, 2020 12:00am October 14, 2021 1:15pm Nitroglycerin 0. 4 MG as directed Sublingual Active OLANZapine 5 mg oral tablet (20 sources) Atypical Antipsychotic Start: 04-26-2020 End: 11-13-2021 take 1 tablet by mouth once daily at bedtime Olanzapine (Zyprexa) 5 mg Tablet Discontinued 5 MG PO Daily at bedtime October 14, 2021 1:00am November 13, 2021 11:40am Patient has been out of this medication since begining of August 2021 Comment on above: Take 5 mg by mouth d aily at bedtime. omeprazole 20 mg delayed release oral capsule (20 sources) Proton Pump Inhibitor Start: 06-15-2020 End: 11-13-2021 take 40 mg by mouth once daily Omeprazole Discontinued 40 MG PO Daily June 15, 2020 11:46am November 13, 2021 6:47pm Start: 06-15-2020 take 20 mg by mouth twice jing y Omeprazole Active 20 MG PO Twice daily June 15, 2020 10:46am Start: 06-07-2020 End: 06-15-2020 take 40 mg by mouth twice daily Omeprazole Discontinue d 40 MG PO Twice daily June 07, 2020 12:00am June 15, 2020 11:46am Start: 09-20-2019 take 40 mg by mouth once daily Omeprazole Active 40 MG PO Daily November 13, 2021 12:00am Start: 08-29-2019 End: 06-07-2020 take 40 mg by mouth twice daily Omeprazole Discontinue d 40 MG PO Twice daily August 29, 2019 1:00am June 07, 2020 6:06pm End: 10-11-2023 take 2 capsules by mouth once daily omeprazole (PRILOSEC) 20 MG capsule Take 40 mg by mouth daily. 0 Active pantoprazole 40 mg delayed release oral tablet (1 source) Proton Pump Inhibitor Start: 10-06-2023 take 40 mg by mouth once daily before breakfast 40 mg, Oral, DAILY BEFORE BREAKFAST, First dose on Wed10/06/23 at 0700, Until Discontinued Do not crush or break. Substituted for Omeprazole (PRILOSEC). permethrin 10 mg/ml medicated shampoo (1 source) Pyrethroid Start: 10-06-2023 End: 10-06-2023 permethrin (NIX) 1 % liquid potassium bicarbonate 20 meq effervescent oral tablet (1 source) Start: 10-05-2023 End: 10-05-2023 potassium bicarb-citric acid (EFFER-K) effervescent tablet 40 mEq promethazine hydrochloride 25 mg oral tablet (8 sources) Phenothiazine Start: 10-09-2021 End: 10-17-2021 take 25 mg by mouth twice daily Promethazine Discontinued 25 MG PO Twice daily October 13, 2021 1:00am October 17, 2021 1:48pm take 1 tablet by augusto th every eight hours as needed promethazine (PHENERGAN) 25 MG tablet Ta ke 25 mg by mouth every 8 hours as needed. 0 Active rivaroxaban 20 mg oral tablet (11 sources) Factor Xa Inhibitor Start: 08-09-2019 End: 04-28-2020 take 1 tablet by mouth once daily Rivaroxaban (Xarelto) 20 mg tablet Discontinued 20 MG PO Daily August 29, 2019 1:00am April 28, 2020 2:04pm sacubitril 24 mg / valsartan 26 mg oral tablet (20 sources) Angiotensin 2 Receptor Edward Start: 09-01-2019 End: 01-17-2022 take 1 tablet by mouth twice daily Sacubitril-Valsarta n (Entresto) 24-26 mg Tablet Discontinued 1 TAB PO Twice daily June 15, 2020 12:00am October 17, 2021 1:48pm Start: 08-29-2019 End: 09-01-2019 take 2 tablets by mouth once daily Sacubitril-Valsartan (Entresto) 24-26 mg tablet Discontinued 2 TAB PO Daily August 29, 2019 1:00am September 01, 2019 7:52pm Start: 07-04-2019 ENTRESTO 24-26 MG TABS tablet Comment on above: Take 1 tablet by augusto twice daily. 5 ml sodium chloride 9 mg/ml injection (16 sources) Start: 4 take 1 dose intravenously twice daily 5-40 mL, IntraVENous, EVERY 12 HOURS SCHEDULED (2 times per day), First dose on Wed10/06/23 at 0900, Until Discontinued For Line Patency: Peripheral IV = 5 mL; Midline or Central Line = 10 mL/lumen. &n bsp;If following IV push medication, administer flush at same rate as the IV push. Flush volume is determined by type of infusion therapy being given. For non-viscous solutions use: Peripheral IV = 5 mL Midline or Central Line = 10 mL/lumen F or viscous solutions (i.e. blood components, parenteral nutrition, contrast media, or after obtaining blood sample) use: Peripheral IV = 10 mL Midline or Central Line = 20 mL/lumen Start: 10-06-2023 IntraVENous, a t 5-250 mL/hr, PRN, if patient receiving piggyback infusions and maintenance fluids are not ordered OR KVO fluids to protect IV site / prevent frequent line interruptions/ long duration, Starting on Wed10/06/23 at 0008 For piggyback infusion, administer at same rate as piggyback for a total of 25 mL. Enter 25 mL into dose field and piggyback rate into rate field of order. If piggyback is infusing at a rate less than 100 mL/hr, enter 25 mL into dose field and 100 mL/hr into rate field of order. For KVO fluids, enter rate of 20 mL/hr or less into rate field of order. Start: 10-06-2023 take 10 mL intraveno usly once as needed 10 mL, IntraVENous, PRN, Starting on Wed10/06/23 at 0008, Until Discontinued, Line Care, After every IV line use Start: 10-05-2023 End: 10-06-2023 sodium chloride 0.9 % bolus 100 mL Start: 10-05-2023 End: 10-05-2023 sodium chloride flush 0.9 % injection 10 mL Start: 10-05-2023 End: 10-06-2023 0.9 % sodium chloride infusi on Start: 09-29-2023 End: 09-29-2023 sodium chloride 0.9% infusio n Start: 12-17-2020 End: 08-20-2022 sodium chloride 0.9 % (flush ) 10 mL (BD POSIFLUSH) spironolactone 25 mg oral tablet (20 sources) Aldosterone Antagonist Start: 11-25-2020 End: 10-14-2021 take 25 mg by mouth once daily Spironolactone Discontinued 25 MG PO Daily November 25, 2020 6:21pm October 14, 2021 1:13pm Start: 07-19-2020 End: 11-25-2020 take 12.5 mg by mouth once daily Spironolactone Discontinued 12.5 MG PO Daily July 19, 2020 1:00am November 25, 2020 6:22pm Start: 05-09-2018 End: 09-01-2019 take 1 tablet by mouth once daily Spironolactone (Aldactone) 25 mg Tablet Discontinued 25 MG PO Daily May 09, 2018 12:00am September 01, 2019 7:52pm spironolactone ( ALDACTONE) 25 MG tablet Take 12.5 mg by mouth daily. 0 Active temazepam 30 mg oral capsule (20 sources) Benzodiazepine Start: 11-23-2020 End: 10-14-2021 take 30 mg by mouth at bedtime Temazepam Discontinued 30 MG PO Bedtime November 23, 2020 12:00am October 14, 2021 1:07pm Start: 06-07-2020 End: 06-15-2020 take 30 mg by mouth once daily at bedtime Temazepam Discontinued 30 MG PO Daily at bedtime June 07, 2020 12:00am June 15, 2020 11:52am Start: 04-26-2020 End: 06-07-2020 take 1 capsule by mouth once daily at bedtime Temazepam (Restoril) 30 mg capsule Discontinued 30 MG PO Daily at bedtime April 26, 2020 12:00am June 07, 2020 6:06pm TK 1 C PO QD HS Start: 05-09-2018 End: 04-26-2020 take 1 capsule by mouth once daily at bedtime Temazepam (Restoril) 15 mg Capsule Discontinued 15 MG PO Daily at bedtime 0 September 01, 2019 7:38pm April 26, 2020 2:54pm 200 ml vancomycin 5 mg/ml injection (5 sources) Glycopeptide Antibacterial Start: 09-29-2023 End: 09-29-2023 vancomycin (Vancocin) 1 g in dextrose 5% water 200 mL Start: 11-16-2021 End: 11-11-2023 take 125 mg by mouth every six hours Vancomycin Discontinued 125 MG PO Q6H 28 November 16, 2021 12:00am November 11, 2023 4:20pm Payers Date Payer Category Payer Private Health Insurance [employer] DUAL COMPLETE [facility] DUAL COMPLETE [id number] 2023-Present [address] [address] [place] [address] [id number] 2023 Self-pay [id number] 2020 Medicare [facility] MEDICARE [facility] DUAL COMPLETE HMO SNP [id number] 2020-Present [phone] [address] [place] [address] Medicare [id number] 2020 Medicare [id number]. [id number] 2020 Medicaid MEDICAID [facility] MEDICAID [id number] 2020-Present [phone] [address] [place] [address] Medicaid [id number]. [id number] 2017 Private Health Insurance [id number] 2017 Unknown [id number] 2003 Medicaid [id number]. 1.13.159.2. [id number] 1969 Unknown [id number] 2.840.1.887596.3.579.2. 355 1969 Unknown [id number] 2.16.840.1.298201.3.579.2. 1969 Unknown [id number] 2.16.840.1.859428.3.579.2. 1969 Unknown [id number] 2.16.840.1.050073.3.579.2. 1969 Unknown [id number] 2.16.840.1.488945.3.579.2. 1969 Unknown [id number] 2.16.840.1.070725.3.579.2. 1969 Unknown [id number] 2.16.840.1.153422.3.579.2. 732 1969 Unknown [id number] 2.16.840.1.578506.3.579.2. 593 1969 Unknown [id number] 2.16.840.1.476243.3.579.2. 593 1969 Unknown [id number] 2.16.840.1.403141.3.579.2. 593 1969 Unknown [id number] 2.16.840.1.184450.3.579.2. 593 1969 Unknown [id number] 2.16.840.1.210715.3.579.2. 593 1969 Unknown [id number] 2.16.840.1.146604.3.579.2 593 1969 Unknown [id number] 2.16.840.1.472983.3.579.2. 593 1969 Unknown [id number] 2.16.840.1.012487.3.579.2. 593 1969 Unknown [id number] 2.16.840.1.076331.3.579.2. 593 1969 Unknown [id number] 2.16.840.1.685695.3.579.2. 593 1969 Unknown [id number] 2.16.840.1.554640.3.579.2. 593 1969 Unknown [id number] 2.16.840.1.340119.3.579.2. 593 1969 Unknown [id number] 2.16.840.1.126885.3.579.2. 593 1969 Unknown [id number] 2.16.840.1.221974.3.579.2. 593 1969 Unknown [id number] 2.16.840.1.481020.3.579.2. 593 1969 Unknown [id number] 2.16.840.1.886894.3.579.2. 593 1969 Unknown [id number] 2.16.840.1.525239.3.579.2. 593 1969 Unknown [id number] 2.16.840.1.865269.3.579.2. 1244 1969 Unknown [id number] 2.16.840.1.914997.3.579.2. 1246 1969 Unknown [id number] 2.16.840.1.147329.3.579.2. 1246 1969 Unknown [id number] 2.16.840.1.860811.3.579.2. 1246 1969 Unknown [id number] 2.16.840.1.292564.3.579.2. 356 1969 Unknown [id number] 2.16.840.1.062413.3.579.2. 727 1969 Unknown [id number] 2.16.840.1.186099.3.579.2. 727 1969 Unknown [id number] 2.16.840.1.706364.3.579.2. 727 1969 Unknown [id number] 2.16.840.1.797092.3.579.2. 727 1969 Unknown [id number] 2.16.840.1.462280.3.579.2. 176 1969 Unknown [id number] 2.16.840.1.563998.3.579.2. 176 1969 Unknown [id number] 2.16.840.1.888039.3.579.2. 176 1969 Unknown [id number] 2.16.840.1.773007.3.579.2. 175 1959 Medicaid [id number] Medicare [id number] Medicare [id number] Unknown [id number] Unknown Unknown [id number] 2.16.840.1.807346.3.579.2. 531 Unknown [id number] 2.16.840.1.030784.3.579.2. 531 Plan of Treatment Date Care Activity Detail Author Start: 2034 PNEUMOCOCCAL (3 - PPSV23 if available, else PCV20) PNEUMOCOCCAL (3 - PPSV23 if available, else PCV20) [facility] Start: 2034 PNEUMOCOCCAL (3 - PPSV23 or PCV20) PNEUMOCOCCAL (3 - PPSV23 or PCV20) [facility] Start: 2034 Pneumococcal vaccination [facility] Start: 2034 Pneumococcal Vaccine: Pediatrics (0 to 5 Years) and At-Risk Patients (6 to 64 Years) (3 - PPSV23 or PCV20) Pneumococcal Vaccine: Pediatrics (0 to 5 Years) and At-Risk Patients (6 to 64 Years) (3 - PPSV23 or PCV20) [facility] Start: 08-17-2025 Lipid 1996 panel - Serum or Plasma Lipid Screening [facility] Start: 08-17-2025 LIPID SCREEN LIPID SCREEN [facility] Start: 09-29-2024 Creatinine measurement Creatinine Level [facility] Start: 09-29-2024 Potassium measurement Potassium Level [facility] Start: 08-30-2024 Cholesterol [Mass/volume] in Serum or Plasma Cholesterol [facility] Start: 03-29-2024 End: 03-29-2024 Patient encounter procedure 03/29/2024 8:30 AM EDT Office Visit [facility] [address] [place] [address] Jameel Valenzuela E, 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 [address] [facility] [address] [place], [place] [id number] [facility] Start: 03-19-2024 DIABETES SCREEN DIABETES SCREEN [facility] Start: 03-19-2024 Diabetes Screening Diabetes Screening [facility] Start: 01-24-2024 Plain chest X-ray XR chest 1V portable [facility] Start: 01-24-2024 XR Chest Single view [facility] Start: 10-22-2023 End: 10-22-2023 Patient encounter procedure 10/22/2023 9:30 AM EST Office Visit [facility] [address] [place] [phone] Swapnil Brand MD [address] [place] [address] new pat/ hosp f/u [facility] Comment on above: new pat/ hosp f/u Start: 10-18-2023 End: 10-18-2023 Patient encounter procedure 10/18/2023 2:50 PM EST Appointment [facility] [address] [place] [address] INR- new Lovenox (CPA 10/06/24 [facility]) [facility] Comment on above: INR- new Lovenox (CPA 10/06/24 [facility]) Start: 10-13-2023 End: 10-06-2024 Basic metabolic 2000 panel - Serum or Plasma Basic Metabolic Panel Lab Routine Hypokalemia Expected: 10/13/2023, Expires: 10/06/2024 [facility] Comment on above: Expected: 10/13/2023, Expires: 5 Start: 10-13-2023 End: 10-06-2024 CBC panel - Blood by Automated count CBC Lab Routine Dizziness Expected: 10/13/2023, Expires: 10/06/2024 [facility] Comment on above: Expected: 10/13/2023, Expires: Start: 10-13-2023 End: 10-13-2023 Patient encounter procedure 10/13/2023 11:00 AM EST Office Visit [facility] [address] [facility] [address] [place] [address] Ajay Robles, [address] [facility] [facility] [address] [place] [address] Robles [facility] Comment on above: per Dr. Robles Start: 10-12-2023 End: 10-12-2023 Patient encounter procedure 10/12/2023 3:50 PM EST Appointment [facility] [address] [place] [address] INR- new Lovenox (CPA 10/06/24 [facility]) [facility] Comment on above: INR- new Lovenox (CPA 10/06/24 [facility]) Start: 10-08-2023 End: 10-08-2023 Patient encounter procedure 10/08/2023 10:30 AM EST Appointment [facility]ication [facility] [place] [address] INR- new Lovenox (CPA 10/06/24 [facility]) [facility] Comment on above: INR- new Lovenox (CPA 10/06/24 [facility]) Start: 10-06-2023 End: 10-06-2023 Clinical Support 10/06/2023 8:30 AM EST Clinical Support [facility] [address] [place] [id number] [facility] Start: 09-29-2023 End: 09-29-2023 Admission to same day surgery center 09/29/2023 2:00 PM EST - 09/29/2023 4:00 PM EST Surgery [facility] [address] [place] [address] Margareth Nunez MD [address] [place] [address] ICD BIV Generator Change Out [20974 (CPT )] [facility] Comment on above: ICD BIV Generator Change Out [70043 (CPT )] Start: 09-29-2023 Subsequent hospital visit by physician 09/29/2023 2:00 PM EST Hospital Encounter [facility] [address] [place] [facility] [place] [address] Margareth Nunez MD [address] [facility] [address] [place] [address] Biventricular implantable cardioverter-defibrilla tor (ICD) in situ; Elective replacement of implantable cardioverter-defibrilla tor (ICD) battery required [facility] Comment on above: Biventricular implantable cardioverter-d efibrillator (ICD) in situ; Elective replacement of implantable cardioverter-defibrillator (ICD) battery required Start: 09-09-2023 End: 12-09-2023 Basic metabolic 2000 panel - Serum or Plasma BASIC METABOLIC PNL Lab Routine Persistent atrial fibrillation (HCC) Expected: 09/09/2023 (Approximate), Expires: 12/09/2023 [facility] Work Phone: Comment on above: Expected: 09/09/2023 (Approximate), Expi res: 12/09/2023 Start: 09-09-2023 End: 12-09-2023 CBC panel - Blood by Automated count CBC Lab Routine Persistent atrial fibrillation (HCC) Expected: 09/09/2023 (Approximate), Expires: 12/09/2023 [facility] Work Phone: Comment on above: Expected: 09/09/2023 (Approximate), Expi res: 12/09/2023 Start: 09-09-2023 End: 12-09-2023 CONFIRM BLOOD TYPE CONFIRM BLOOD TYPE Blood Bank Routine Persistent atrial fibrillation (HCC) Expected: 09/09/2023 (Approximate), Expires: 12/09/2023 [facility] Work Phone: Comment on above: Expected: 09/09/2023 (Approximate), Expi res: 12/09/2023 Start: 09-09-2023 End: 12-09-2023 TYPE AND SCREEN,30 DAY TYPE AND SCREEN,30 DAY Blood Bank Routine Persistent atrial fibrillation (HCC) Expected: 09/09/2023 (Approximate), Expires: 12/09/2023 [facility] Work Phone: Comment on above: Expected: 09/09/2023 (Approximate), Expi res: 12/09/2023 Start: 08-30-2023 Annual Wellness Visit (Medicare Advantage) Annual Wellness Visit (Medicare Advantage) [facility] Start: 04-30-2023 Covid-19 Vaccine ( season) Covid-19 Vaccine ( season) [facility] Start: 04-30-2023 Influenza vaccination [facility] Start: 03-30-2023 Influenza vaccination Flu vaccine (#1) [facility] Start: 03-15-2023 FUV, Provider: Margareth Nunez, Status: Pen, Time: 1:40 PM FUV, Provider: Margareth Nunez, Status: Pen, Time: 1:40 PM -[facility] [address] DO Work Phone: Start: 11-14-2022 Echocardiography Echocardiogram [facility] Start: 10-27-2022 FUV, Provider: Margareth Nunez, Status: Pen, Time: 3:00 PM FUV, Provider: Margareth Nunez, Status: Pen, Time: 3:00 PM -[facility] [address] DO Work Phone: Start: 05-30-2022 Influenza vaccination Influenza Vaccine (#1) [facility] Start: 05-25-2022 FUV, Provider: Inna Jesus, Status: Pen, Time: 1:30 PM FUV, Provider: Inna Jesus, Status: Pen, Time: 1:30 PM -[facility] DO Work Phone: Start: 05-20-2022 BP CONTROLLED (<130/80) BP CONTROLLED (<130/80) [facility] Start: 04-30-2022 Influenza vaccination [facility] Start: 04-24-2022 FUV, Provider: Margareth Nunez, Status: Pen, Time: 1:20 PM FUV, Provider: Margareth Nunez, Status: Pen, Time: 1:20 PM -[facility] [address] [place] Work Phone: Start: 04-15-2022 FUV, Provider: Inna Jesus, Status: Pen, Time: 4:00 PM FUV, Provider: Inna Jesus, Status: Pen, Time: 4:00 PM -[facility] DO Work Phone: Start: 03-25-2022 FUV, Provider: Inna Jesus, Status: Pen, Time: 8:00 AM [facility]UV, Provider: Inna Jesus, Status: Pen, Time: 8:00 AM -[facility] 250 DO Work Phone: Start: 03-12-2022 Diabetes mellitus screening Diabetes Screening [facility] Start: 02-23-2022 FUV, Provider: Inna Jesus, Status: Pen, Time: 8:00 AM [facility]UV, Provider: Inna Jesus, Status: Pen, Time: 8:00 AM -[facility] DO Work Phone: Start: 01-21-2022 [facility], Provider: Margareth Nunez, Status: Pen, Time: 9:00 AM [facility], Provider: Margareth Nunez, Status: Pen, Time: 9:00 AM -[facility] [facility] DO Work Phone: Start: 01-20-2022 [facility], Provider: Soco Bhardwaj, Status: Pen, Time: 8:00 AM [facility], Provider: Soco Bhardwaj, Status: Pen, Time: 8:00 AM -[facility] [facility] DO Work Phone: Start: 12-31-2021 EP ABLAT, Provider: [facility] ADMINISTRATIVE RECEPTIONIST [id number], Status: Pen, Time: 11:00 AM EP ABLAT, Provider: [facility] ADMINISTRATIVE RECEPTIONIST 5,[id number], Status: Pen, Time: 11:00 AM [facility] [address] DO Work Phone: Start: 12-31-2021 [facility], Provider: Soco Bhardwaj, Status: Pen, Time: 11:00 AM [facility], Provider: Soco Bhardwaj, Status: Pen, Time: 11:00 AM -[facility] [address] DO Work Phone: Start: 12-31-2021 [facility], Provider: Margareth Nunez, Status: Pen, Time: 8:00 AM [facility], Provider: Margareth Nunez, Status: Pen, Time: 8:00 AM -[facility] [address] DO Work Phone: Start: 12-31-2021 JOVITA, Provider: [facility] ADMINISTRATIVE RECEPTIONIST 1,[id number], Status: Pen, Time: 8:00 AM JOVITA, Provider: [facility] ADMINISTRATIVE RECEPTIONIST [id number], Status: Pen, Time: 8:00 AM -[facility] DO Work Phone: Start: 11-19-2021 FUV, Provider: Nadir Hoskins, Status: Pen, Time: 9:20 AM [facility]UV, Provider: Nadir Hoskins, Status: Pen, Time: 9:20 AM [facility] 250 DO Work Phone: Start: 10-29-2021 FUV, Provider: Inna Jesus, Status: Pen, Time: 2:30 PM FUV, Provider: Inna Jesus, Status: Pen, Time: 2:30 PM -[facility] DO Work Phone: Start: 10-13-2021 Bacteria identified in Blood by Culture Blood Culture [facility] Start: 10-13-2021 Bacteria identified in Urine by Culture Urine Culture [facility] Start: 08-17-2021 Hepatitis B surface antibody level LDL CHOLESTEROL [facility] Start: 05-11-2021 COVID-19 VACCINE (3 - Booster for Pfizer series) COVID-19 VACCINE (3 - Booster for Pfizer series) [facility] Start: 02-03-2021 COVID-19 VACCINE (3 - Booster for Pfizer series) COVID-19 VACCINE (3 - Booster for Pfizer series) [facility] Start: 02-03-2021 COVID-19 VACCINE (3 - Pfizer series) COVID-19 VACCINE (3 - Pfizer series) [facility] Start: 2019 Measurement of occult blood in single stool specimen [facility] Start: 2019 Screening for malignant neoplasm of breast Breast cancer screen [facility] Start: 2019 Screening for malignant neoplasm of colon CRC Screening [facility] Start: 2019 Shingles (RZV) Vaccine (1 of 2) Shingles (RZV) Vaccine (1 of 2) [facility] Start: 2019 Shingles vaccine (1 of 2) Shingles vaccine (1 of 2) [facility] Start: 2019 SHINGRIX VACCINE (1 of 2) SHINGRIX VACCINE (1 of 2) [facility] Start: 2019 Zoster Vaccines (1 of 2) Zoster Vaccines (1 of 2) [facility] Start: 2014 COLOGUARD (FIT-DNA) COLOGUARD (FIT-DNA) [facility] Start: 2014 Colonoscopy COLONOSCOPY [facility] Start: 2014 COLORECTAL CANCER SCREENING COLORECTAL CANCER SCREENING [facility] Start: [address] COLONOGRAPHY [facility] Start: 2014 FECAL OCCULT BLOOD FECAL OCCULT BLOOD [facility] Start: 2014 Screening for malignant neoplasm of colon [facility] Start: 2014 SIGMOIDOSCOPY SIGMOIDOSCOPY [facility] Start: 02-06-2013 DTaP/Tdap/Td vaccine (1 - Tdap) DTaP/Tdap/Td vaccine (1 - Tdap) [facility] Start: 02-06-2013 DTaP/Tdap/Td Vaccines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 CK #### [address] Anisocytosis [Presence] in B lood by Light microscopyOrdered By: Tanner Mae on 01-24-2024 Anisocytosis Ql (Bld) Slight Normal [facility] Comment on above: Performed By: #### D IFF CBC #### [address] Aspartate aminotransferase [ Enzymatic activity/volume] in Serum or PlasmaOrdered By: Tanner Mae on 01-24-2024 AST [Catalytic activity/Vol] 35 U/L Normal 13-39 [facility] Comment on above: Performed By: #### C MP, REDRAW CK #### [address] BNP ser/plasOrdered By: Brett Mae on 01-24-2024 Natriuretic peptide B (Bld) [Mass/Vol] 265.0 pg/mL High 5-100 [facility] Comment on above: Result Comment: PERF ORMED BY: [place] [address] PATHOLOGIST CARE TEAM COORDINATOR SCHEDULER LILIANA CLAY M.D. Performed By: #### B COMPLAINT OPERATOR, HS TROP, PTT, PT, CK #### [address] Basophils Auto (Bld) [#/Vol] Ordered By: Tanner Mae on 01-24-2024 Basophils (Bld) [#/Vol] N/A [facility] Basophils/100 WBC Auto (Bld) Ordered By: Tanner Mae on 01-24-2024 Basophils/100 WBC (Bld) N/A [facility] Basophils/100 leukocytes in Blood by Manual countOrdered By: Tanner Mae on 01-24-2024 Basophils/100 WBC (Bld) 1 % Normal 0-2 [facility] Comment on above: Performed By: #### D IFF CBC #### [address] Bilirubin.total [Mass/volume ] in Serum or PlasmaOrdered By: Tanner Mae on 01-24-2024 Bilirubin [Mass/Vol] 0.4 mg/dL Normal 0.3-1.0 [facility] Comment on above: Performed By: #### C JIMMY, REDRAW CK #### [facility] [address] [place] cells [Presence] in Blo od by Light microscopyOrdered By: Tanner Mae on 01-24-2024 Jonah cells LM Ql (Bld) Slight [facility] Calcium [Mass/volume] in Ser um or PlasmaOrdered By: Tanner Mae on 01-24-2024 Calcium [Mass/Vol] 8.7 mg/dL Normal 8.6-10.3 [facility] Comment on above: Performed By: #### C JIMMY, REDRAW CK #### [facility] [address] Carbon dioxide, total [Moles /volume] in Serum or PlasmaOrdered By: Tanner Mae on 01-24-2024 CO2 [Moles/Vol] 23.7 mmol/L Normal 21.0-31.0 [facility] Comment on above: Performed By: #### C JIMMY REDRAW CK #### [facility] [address] Chloride [Moles/volume] in S daisy or PlasmaOrdered By: Tanner Mae on 01-24-2024 Chloride [Moles/Vol] 109 mmol/L High 98-107 [facility] Comment on above: Performed By: #### C JIMMY REDRAW CK #### [facility] [address] Comprehensive Metabolic Pane selene 01-24-2024 Albumin [Mass/Vol] 3.6 g/dL Normal 3.5-5.7 [facility] Comment on above: Performed By: #### C JIMMY, REDRAW CK #### [facility] [address] Creatinine Clr Calc Pharmacy 54.24 Normal [facility] Comment on above: Result Comment: PERF ORMED BY: [place] [address] PATHOLOGIST CARE TEAM COORDINATOR SCHEDULER LILIANA CLAY M.D. Performed By: #### C MP, REDRAW CK #### [place] [id number] [facility] GFR/1.73 sq M.predicted MDRD (S/P/Bld) [Vol rate/Area] mL/min/{1.73_m2} Normal [facility] Comment on above: Performed By: #### C MP, REDRAW CK #### [address] Creatine Kinaseon 01-24-2024 Creatine Kinase Normal 30-223 [facility] Comment on above: Result Comment: Unac ceptable specimen due to HEMOLYSIS. Redraw reordered. Performed By: #### B COMPLAINT OPERATOR, HS TROP, PTT, PT, CK #### [address] Creatine kinase [Enzymatic a ctivity/volume] in Serum or PlasmaOrdered By: Tanner Mae on 01-24-2024 CK [Catalytic activity/Vol] 45 U/L Normal 30-223 [facility] Comment on above: Order Comment: REDRA W Result Comment: PERF ORMED BY: [place] [address] PATHOLOGIST CARE TEAM COORDINATOR SCHEDULER LILIANA CLAY M.D. Performed By: #### C MP, REDRAW CK #### [address] Creatinine [Mass/volume] in Serum or PlasmaOrdered By: Tanner Mae on 01-24-2024 Creatinine [Mass/Vol] 1.00 mg/dL Normal 0.60-1.20 [facility] Comment on above: Performed By: #### C MP, REDRAW CK #### [address] Diff and CBCon 01-24-2024 Crenated RBC Slight Normal [facility] Comment on above: Performed By: #### D IFF CBC #### [address] Hypochromasia Moderate Normal [facility] Comment on above: Performed By: #### D IFF CBC #### [address] Macrocytosis Slight Normal [facility] Comment on above: Performed By: #### D IFF CBC #### [address] Mean Corpuscular HGB Conc 30.1 g/dL Low 32.0-35.0 [facility] Comment on above: Performed By: #### D IFF CBC #### [address] Microcytosis Slight Normal [facility] Comment on above: Performed By: #### D IFF CBC #### [address] Monocytes/100 WBC (Bld) 18.17 % Normal 0.00-20.00 [facility] Comment on above: Performed By: #### D IFF CBC #### [address] Ovalocytes Slight Normal [facility] Comment on above: Performed By: #### D IFF CBC #### [address] Platelet Estimate Normal Normal Normal [facility] Comment on above: Performed By: #### D IFF CBC #### [address] Platelet Morphology Normal Normal Normal [facility] Comment on above: Result Comment: PERF ORMED BY: [place] [address] PATHOLOGIST CARE TEAM COORDINATOR SCHEDULER LILIANA CLAY M.D. Performed By: #### D IFF CBC #### [address] Poikilocytosis Moderate Normal [facility] Comment on above: Performed By: #### D IFF CBC #### [facility] [address] Polychromasia Slight Normal [facility] Comment on above: Performed By: #### D IFF CBC #### [facility] [address] Stomatocytes Slight Normal [facility] Comment on above: Performed By: #### D IFF CBC #### [facility] [address] Target Cells Slight Normal [facility] Comment on above: Performed By: #### D IFF CBC #### [address] Tear Drop Cells Slight Normal [facility] Comment on above: Performed By: #### D IFF CBC #### [address] ECG 12 lead ECGon 01-24-2024 ECG 12 lead ECG [facility] [place] [address] [place] [address] Electrocardiograph Report Signed Patient: Essence Vincent MR#: [id number] : 1970 Acct:[id number] Age/Sex: 53 / F ADM Date: 01/24/24 Loc: ER Room: Type: [facility] ER Attending Dr: Ordering Provider: Tanner Mae Jr, MD Date of Service: 01/24/24 ECG/ECG 12 lead ECG: Chest Pain Copies to: Test Reason : Blood Pressure : 156/083 mmHG Vent. Rate : 080 BPM Atrial Rate : 080 BPM P-R Int : 276 ms QRS Dur : 188 ms QT Int : 506 ms P-R-T Axes : 000 -80 098 degrees QTc Int : 583 ms AV dual-paced rhythm with prolonged AV conduction Abnormal ECG When compared with ECG of 22-NOV-2021 10:47, Electronic ventricular pacemaker has replaced Atrial flutter Confirmed by TANNER MAE MD ([id number]) on 01/25/2024 5:26:09 AM Referred By: Electronically Signed By:TANNER MAE MD Transcribed By: MUS Signed By Tanner Mae Jr, MD 0526 Normal [facility] Eosinophils Auto (Bld) [#/Vo l]Ordered By: Tanner Mae on 01-24-2024 Eosinophils (Bld) [#/Vol] N/A [facility] Eosinophils/100 WBC Auto (Bl d)Ordered By: Tanner Mae on 01-24-2024 Eosinophils/100 WBC (Bld) N/A [facility] Eosinophils/100 leukocytes i n Blood by Manual countOrdered By: Tanner Mae on 01-24-2024 Eosinophils/100 WBC (Bld) 1 % Normal 1-3 [facility] Comment on above: Performed By: #### D IFF CBC #### [facility] [address] [place] [address] Erythrocyte distribution wid th [Ratio] by Automated countOrdered By: Tanner Mae on 01-24-2024 Erythrocyte distribution width (RBC) [Ratio] 22.3 % High 11.9-15.3 [facility] Comment on above: Performed By: #### D IFF CBC #### [facility] [address] [place] [address] Erythrocytes [#/volume] in B lood by Automated countOrdered By: Tanner Mae on 01-24-2024 RBC (Bld) [#/Vol] 4.94 10*6/uL Normal 3.60-5.00 [facility] Comment on above: Performed By: #### D IFF CBC #### [facility] [address] [place] [address] [place] Glucose [Mass/volume] in Ser um or PlasmaOrdered By: Tanner Mae on 01-24-2024 Glucose [Mass/Vol] 86 mg/dL Normal 70-100 [facility] Comment on above: ADA recommended refe rence rangeRandom Glucose Reference Range is dependent on time and content of last meal. Glucose of more than 200 mg/dL in a nonstressed, ambulatory subject supports the diagnosis of Diabetes Mellitus. Result Comment: [place] om Glucose Reference Range is dependent on time and content of last meal. Glucose of more than 200 mg/dL in a nonstressed, ambulatory subject supports the diagnosis of Diabetes Mellitus. ADA recommended reference range Performed By: #### C MP, REDRAW CK #### [facility] [address] Hematocrit [Volume Fraction] of Blood by Automated countOrdered By: Tanner Mae on 01-24-2024 Hematocrit (Bld) [Volume fraction] 32.3 % Low 34.0-46.4 [facility] Comment on above: Performed By: #### D IFF CBC #### [address] Hemoglobin [Mass/volume] in BloodOrdered By: Tanner Mae on 01-24-2024 Hemoglobin (Bld) [Mass/Vol] 9.7 g/dL Low 11.8-15.4 [facility] Comment on above: Performed By: #### D IFF CBC #### [address] Hypochromia LM Ql (Bld)Order ed By: Tanner Mae on 01-24-2024 Hypochromia Ql (Bld) Moderate [facility] INR in Platelet poor plasma by Coagulation assayOrdered By: Tanner Mae on 01-24-2024 INR Coag (PPP) [Relative time] 1.0 {INR} Normal [facility] Comment on above: INR Therapeutic [...] with mechanical heart valves: 3 - 4.5 Result Comment: INR Therapeutic Range A) Pre- and Peroperative OAT started two weeks before surgery. NOT HIP SURGERY: 1.5 - 2.5 HIP SURGERY: 2 - 3 B) Primary and secondary prevention of venous THROMBOSIS: 2 - 3 C) Active venous thrombosis, pulmonary embolism and prevention of recurrent venous thrombosis: 2 - 3 D) Prevention of arterial thromboembolism including patients with mechanical heart valves: 3 - 4.5 Performed By: #### B COMPLAINT OPERATOR, HS TROP, PTT, PT, CK #### [address] Leukocytes [#/volume] correc janis for nucleated erythrocytes in Blood by Automated counOrdered By: Tanner Mae on 01-24-2024 WBC corrected for nucl RBC Auto (Bld) [#/Vol] 10.2 10*3/uL 3.8-11.6 [facility] Leukocytes [#/volume] in Blo od by Automated countOrdered By: Tanner Mae on 01-24-2024 WBC (Bld) [#/Vol] 10.2 10*3/uL Normal 3.8-11.6 [facility] Comment on above: Performed By: #### D IFF CBC #### [facility] [address] [place] [address] Lymphocytes Auto (Bld) [#/Vo l]Ordered By: Tanner Mae on 01-24-2024 Lymphocytes (Bld) [#/Vol] N/A [facility] Lymphocytes/100 WBC Auto (Bl d)Ordered By: Tanner Mae on 01-24-2024 Lymphocytes/100 WBC (Bld) N/A [facility] Lymphocytes/100 leukocytes i n Blood by Manual countOrdered By: Tanner Mae on 01-24-2024 Lymphocytes/100 WBC (Bld) 22 % Normal 18-42 [facility] Comment on above: Performed By: #### D IFF CBC #### [facility] [address] [place] [address] MCH [Entitic mass] by Automa janis countOrdered By: Tanner Mae on 01-24-2024 MCH (RBC) [Entitic mass] 19.7 pg Low 24.7-34.3 [facility] Comment on above: Performed By: #### D IFF CBC #### [facility] [address] [place] [address] MCHC Auto (RBC) [Mass/Vol]Or dered By: Tanner Mae on 01-24-2024 MCHC (RBC) [Mass/Vol] 30.1 g/dL 32.0-35.0 [facility] MCV [Entitic volume] by Auto mated countOrdered By: Tanner Mae on 01-24-2024 MCV (RBC) [Entitic vol] 65.4 fL Low 80-100 [facility] Comment on above: Performed By: #### D IFF CBC #### [facility] [address] [place] [address] [place] Macrocytes LM Ql (Bld)Ordere d By: Tanner Mae on 01-24-2024 Macrocytes Ql (Bld) Slight [facility] Manual blood segmented neutr ophils/100 leukocytesOrdered By: Tanner Mae on 01-24-2024 Segmented neutrophils/100 WBC (Bld) 69 % Normal 50-70 [facility] Comment on above: Performed By: #### D IFF CBC #### [facility] [address] Microcytes LM Ql (Bld)Ordere d By: Tanner Mae on 01-24-2024 Microcytes Ql (Bld) Slight [facility] Monocyte distribution width [Entitic volume] in Blood by AutomatedOrdered By: Tanner Mae on 01-24-2024 Monocyte distribution width Auto (Bld) [Entitic vol] 18.17 % 0.00-20.00 [facility] Monocytes Auto (Bld) [#/Vol] Ordered By: Tanner Mae on 01-24-2024 Monocytes (Bld) [#/Vol] N/A [facility] Monocytes/100 WBC Auto (Bld) Ordered By: Tanner Mae on 01-24-2024 Monocytes/100 WBC (Bld) N/A [facility] Monocytes/100 leukocytes in Blood by Manual countOrdered By: Tanner Mae on 01-24-2024 Monocytes/100 WBC (Bld) 8 % Normal 2-11 [facility] Comment on above: Performed By: #### D IFF CBC #### [facility] [address] [place] [address] [place] Neutrophils Auto (Bld) [#/Vo l]Ordered By: Tanner Mae on 01-24-2024 Neutrophils (Bld) [#/Vol] N/A [facility] Neutrophils/100 WBC Auto (Bl d)Ordered By: Tanner Mae on 01-24-2024 Neutrophils/100 WBC (Bld) N/A [facility] No Panel InformationOrdered By: Tanner Mae on 01-24-2024 Estimated GFR (CKD-EPI) > 60.0 mL/Min [facility] Creatinine Clearance (Chem 54.24 [facility] Nucleated erythrocytes [Pres ence] in Blood by Automated countOrdered By: Tanner Mae on 01-24-2024 Nucleated RBC Auto Ql (Bld) N/A [facility] Ovalocyte detectionOrdered B y: Tanner Mae on 01-24-2024 Ovalocytes LM Ql (Bld) Slight Fi relands [facility] Partial Thromboplastin Timeo n 01-24-2024 aPTT Coag (Bld) [Time] 19.2 s Low 25.1-36.5 [facility] Comment on above: Result Comment: A he matocrit value greater than 55% may lead to inaccurate results in coagulation testing. Patients having hematocrit values >55% require a special collection tube for coagulation studies. Please contact the laboratory at [phone] for redraw instructions. PERFORMED BY: [place] [address] PATHOLOGIST CARE TEAM COORDINATOR SCHEDULER LILIANA CLAY M.D. Performed By: #### B COMPLAINT OPERATOR, HS TROP, PTT, PT, CK #### [facility] [address] [place] [address] Platelet adequacy [Presence] in Blood by Light microscopyOrdered By: Tanner Mae on 01-24-2024 Platelets LM Ql (Bld) Normal Normal [facility] Platelet mean volume [Entiti c volume] in Blood by Automated countOrdered By: Tanner Mae on 01-24-2024 Platelet mean volume (Bld) [Entitic vol] 9.1 fL Normal 6.3-10.7 [facility] Comment on above: Performed By: #### D IFF CBC #### [facility] [address] [place] [address] Platelet morphology finding [Identifier] in BloodOrdered By: Tanner Mae on 01-24-2024 Platelet morphology finding Nom (Bld) Normal Normal [facility] Platelets [#/volume] in Bloo d by Automated countOrdered By: Tanner Mae on 01-24-2024 Platelets (Bld) [#/Vol] 214 10*3/uL Normal 150-450 [facility] Comment on above: Performed By: #### D IFF CBC #### [facility] [address] Poikilocytosis [Presence] in Blood by Light microscopyOrdered By: Tanner Mae on 01-24-2024 Poikilocytosis LM Ql (Bld) Moderate [facility] Polychromasia [Presence] in Blood by Light microscopyOrdered By: Tanner Mae on 01-24-2024 Polychromasia LM Ql (Bld) Slight [facility] Potassium [Moles/volume] in Serum or PlasmaOrdered By: Tanner Mae on 01-24-2024 Potassium [Moles/Vol] 3.5 mmol/L Normal 3.5-5.1 [facility] Comment on above: Performed By: #### C MP, REDRAW CK #### [address] Protein [Mass/volume] in Ser um or PlasmaOrdered By: Tanner Mae on 01-24-2024 Protein [Mass/Vol] 6.6 g/dL Normal 6.4-8.9 [facility] Comment on above: Performed By: #### C MP, REDRAW CK #### [address] Prothrombin time (PT)Ordered By: Tanner Mae on 01-24-2024 PT Coag (PPP) [Time] 11.8 s Normal 9.0-12.9 [facility] Comment on above: A hematocrit value g reater than 55% may lead to inaccurate results in coagulation testing. Patients having hematocrit values >55% require a special collection tube for coagulation studies. Please contact the laboratory at [phone] for redraw instructions. Result Comment: A he matocrit value greater than 55% may lead to inaccurate results in coagulation testing. Patients having hematocrit values >55% require a special collection tube for coagulation studies. Please contact the laboratory at [phone] for redraw instructions. Performed By: #### B COMPLAINT OPERATOR, HS TROP, PTT, PT, CK #### [address] RBC morphologyOrdered By: Isabella Mae on 01-24-2024 RBC morphology finding Nom (Bld) N/A [facility] Red blood cell stomatocyte d etectionOrdered By: Tanner Mae on 01-24-2024 Stomatocytes LM Ql (Bld) Slight [facility] Serum globulin measurement b y calculation (mass/volume)Ordered By: Tanner Mae on 01-24-2024 Globulin (S) [Mass/Vol] 3.0 g/dL Normal [facility] Comment on above: Performed By: #### C MP, REDRAW CK #### [address] Serum or plasma albumin/glob ulin mass ratioOrdered By: Tanner Mae on 01-24-2024 Albumin/Globulin [Mass ratio] 1.2 {ratio} Normal [facility] Comment on above: Performed By: #### C JIMMY, REDRAW CK #### [address] Serum or plasma anion gap de terminationOrdered By: Tanner Mae on 01-24-2024 Anion gap [Moles/Vol] 12.8 mmol/L Normal 6.0-15.0 [facility] Comment on above: Performed By: #### C JIMMY, REDRAW CK #### [address] Sodium [Moles/volume] in Ser um or PlasmaOrdered By: Tanner Mae on 01-24-2024 Sodium [Moles/Vol] 142 mmol/L Normal 136-145 [facility] Comment on above: Performed By: #### C JIMMY, REDRAW CK #### [address] Target cellsOrdered By: Brett Mae on 01-24-2024 Target cells LM Ql (Bld) Slight [facility] Teardrop cell detectionOrder ed By: Tanner Mae on 01-24-2024 Dacrocytes LM Ql (Bld) Slight [facility] Troponin I High Sensitivityo n 01-24-2024 Troponin I High Sensitivity 13.2 pg/mL Normal 0.0-15.0 [facility] Comment on above: Result Comment: PERF ORMED BY: [place] [address] PATHOLOGIST CARE TEAM COORDINATOR SCHEDULER LILIANA CLAY M.D. Performed By: #### B COMPLAINT OPERATOR, HS TROP, PTT, PT, CK #### [address] Troponin I.cardiac [Mass/vol ume] in Serum or Plasma by Detection limit <= 0.01 ng/Ordered By: Tanner Mae on 01-24-2024 Troponin I.cardiac DL <= 0.01 ng/mL [Mass/Vol] 13.2 pg/mL 0.0-15.0 [facility] Urea nitrogen [Mass/volume] in Serum or PlasmaOrdered By: Tanner Mae on 01-24-2024 Urea nitrogen [Mass/Vol] 23 mg/dL Normal - [facility] Comment on above: Performed By: #### C MP, REDRAW CK #### [address] XR chest 1V portableon 01-23 XR chest 1V portable [facility] [place] [address] [place] [address] XRay Report Signed Patient: Essence Vincent MR#: [id number] : 1970 Acct:[id number] Age/Sex: 53 / F ADM Date: 01/24/24 Loc: ER Room: Type: [facility] ER Attending Dr: Copies to: Tanner Mae Jr, MD Ordering Provider: Tanner Mae Jr, MD Date of Service: 01/24/24 XR/XR chest 1V portable: Chest Pain XR chest 1V portable 01/24/2024 2:22 AM SIGNS AND SYMPTOMS: Chest Pain PROTOCOL: Frontal radiograph of the chest COMPARISON: 11/23/2019 FINDINGS: The trachea is midline. There is cardiomegaly. Pacer device is redemonstrated on the left. There is evidence of prior endovascular repair of the aortic annulus. There is cardiomegaly. Interstitial prominence is noted with perihilar vascular prominence and hazy airspace opacities suggesting congestive heart failure. The bony thorax is intact. XR/XR chest 1V portable IMPRESSION: Findings suggest congestive heart failure, new when compared to the prior exam. Additional chronic findings are noted, as above. Impression dictated by: Franklin Couch M.D.01/24/2024 11:31 AM Dictation Location: [place] [address] Transcribed By: [facility] 01/24/24 1131 Dictated By: Franklin Couch II, MD 01/24/24 1130 Signed By: 01/24/24 1131 Normal [facility] BUN, POCon 01-04-2024 Urea nitrogen [Mass/Vol] 22 mg/dL Normal 8-26 [facility] Creatinine w/GFR, POCon Creatinine [Mass/Vol] 0.7 mg/dL Normal 0.51-1.19 [facility] GFR/1.73 sq M.predicted among non-blacks MDRD (S/P/Bld) [Vol rate/Area] mL/min/{1.73_m2} Normal [facility] Comment on above: Result Comment: These results are not intended for use in patients <18 years of age. eGFR results are calculated without a race factor using the 2020 CKD-EPI equation. Careful clinical correlation is recommended, particularly when comparing to results calculated using previous equations. The CKD-EPI equation is less accurate in patients with extremes of muscle mass, extra-renal metabolism of creatine, excessive creatine ingestion, or following therapy that affects renal tubular secretion. Glucose (POC)on 01-04-2024 Glucose [Mass/Vol] 84 mg/dL Normal 74-100 [facility] Hgb/Hct, POCon 01-04-2024 Hematocrit (Bld) [Volume fraction] 40 % Normal 36-46 [facility] Hemoglobin (Bld) [Mass/Vol] 13.8 g/dL Normal 12.0-16.0 [facility] PT (Whole Blood)on 4 Intl. Normal. Ratio 1.1 Normal [facility] Comment on above: Result Comment: Therapeutic Range: Moderate Anticoagulant Intensity: INR = 2.0-3.0 High Anticoagulant Intensity: INR = 2.5-3.5 PT Coag (PPP) [Time] 13.5 s Normal 10.4-14.2 [facility] Potassium (POC)on 01-04-2024 Potassium [Moles/Vol] 3.3 mmol/L Low 3.5-4.5 [facility] Sodium (POC)on 01-04-2024 Sodium [Moles/Vol] 142 mmol/L Normal 138-146 [facility] Protime-INRon 10-12-2023 INR Coag (Bld) [Relative time] 2 {INR} [facility] PT Coag (PPP) [Time] 24.1 s seconds [facility] Protime-INRon 10-11-2023 INR Coag (Bld) [Relative time] 1.8 {INR} [facility] PT Coag (PPP) [Time] 21.1 s seconds [facility] Basic Metab w/rfx MGon 10-07 Anion gap [Moles/Vol] 12 mmol/L Normal 9-17 [facility] Comment on above: Performed By: #### C DP, BMPX, PT #### [facility] [address] [place] [address] Clinical Aide: Mike Bill, DO Calcium [Mass/Vol] 9.2 mg/dL Normal 8.6-10.4 [facility] Comment on above: Performed By: #### C DP, BMPX, PT #### [facility] [place] [address] Clinical Aide: Mike Bill, DO Chloride [Moles/Vol] 104 mmol/L Normal 98-[address] [facility] Comment on above: Performed By: #### C DP, BMPX, PT #### [facility] [place] [address] Clinical Aide: Mike Bill, DO CO2 [Moles/Vol] 24 mmol/L Normal 20-31 [facility] Comment on above: Performed By: #### C DP, BMPX, PT #### [facility] [address] [facility] [place] [facility] [place] [address] Clinical Aide: Mike Bill DO Creatinine [Mass/Vol] 1.0 mg/dL High 0.5-0.9 [facility] Comment on above: Performed By: #### C DP, BMPX, PT #### [facility] [place] [address] Clinical Aide: Mike Bill DO GFR/1.73 sq M.predicted among non-blacks MDRD (S/P/Bld) [Vol rate/Area] mL/min/{1.73_m2} Normal >60 [facility] Comment on above: Result Comment: These results are not intended for use in patients <18 years of age. eGFR results are calculated without a race factor using the 2020 CKD-EPI equation. Careful clinical correlation is recommended, particularly when comparing to results calculated using previous equations. The CKD-EPI equation is less accurate in patients with extremes of muscle mass, extra-renal metabolism of creatine, excessive creatine ingestion, or following therapy that affects renal tubular secretion. Performed By: #### C BIANCA BMPX, PT #### [facility] [place] [facility] [place] [address] Clinical Aide: Mike Bill DO Glucose [Mass/Vol] 96 mg/dL Normal 70-99 [facility] Comment on above: Performed By: #### C DP, BMPX, PT #### [facility] [address] [facility] [place] [facility] [place] [address] Clinical Aide: Mike Bill DO Potassium [Moles/Vol] 4.4 mmol/L Normal 3.7-5.3 [facility] Comment on above: Result Comment: SPEC IMEN SLIGHTLY HEMOLYZED, RESULTS MAY BE ADVERSELY AFFECTED. Performed By: #### C DP, BMPX, PT #### [facility] [address] [place] [address]. [place] [address] Clinical Aide: Mike Bill DO Sodium [Moles/Vol] 140 mmol/L Normal 135-144 [facility] Comment on above: Performed By: #### C BIANCA BMPX, PT #### [facility] [address] [facility] [place] [facility] [place] [address] Clinical Aide: Mike Bill DO Urea nitrogen [Mass/Vol] 12 mg/dL Normal 6-20 [facility] Comment on above: Performed By: #### C BIANCA BMPX, PT #### [facility] [address] [facility] [place] [facility] [place] [address] Clinical Aide: Mike Bill DO Basic Metabolic Panel w/ Ref sam to MGon 10-07-2023 Anion gap [Moles/Vol] 12 mmol/L 9 - 17 mmol/L [facility] [employer] Calcium [Mass/Vol] 9.2 mg/dL 8.6 - 10. 4 mg/dL [facility] [employer] Chloride [Moles/Vol] 104 mmol/L 98 - 10 7 mmol/L [facility] [employer] CO2 [Moles/Vol] 24 mmol/L 20 - 31 mmol/L [facility] [employer] Creatinine [Mass/Vol] 1.0 mg/dL High 0.5 - 0.9 mg/dL [facility] GFR/1.73 sq M.predicted MDRD (S/P/Bld) [Vol rate/Area] - [facility] Comment on above: These results are not intended for use in patients <18 years of age. eGFR results are calculated without a race factor using the 2020 CKD-EPI equation. Careful clinical correlation is recommended, particularly when comparing to results calculated using previous equations. The CKD-EPI equation is less accurate in patients with extremes of muscle mass, extra-renal metabolism of creatine, excessive creatine ingestion, or following therapy that affects renal tubular secretion. Glucose [Mass/Vol] 96 mg/dL 70 - 99 mg/dL [facility] Potassium [Moles/Vol] 4.4 mmol/L 3.7 - 5.3 mmol/L [facility] Comment on above: SPECIMEN SLIGHTLY HE MOLYZED, RESULTS MAY BE ADVERSELY AFFECTED. Sodium [Moles/Vol] 140 mmol/L 135 - 144 mmol/L [facility] Urea nitrogen [Mass/Vol] 12 mg/dL 6 - 20 mg/dL [facility] CBC with Diffon 10-07-2023 Abs. Basophil 0.16 k/uL Normal 0.0-0.2 [facility] Comment on above: Performed By: #### C BIANCA BMPX, PT #### [facility] [address] [place] [address] Clinical Aide: Mike Bill DO Abs.Neutrophil (Seg) 5.03 k/uL Normal 1.3-9.[address] [facility] Comment on above: Performed By: #### C BIANCA BMPX, PT #### [facility] [address] [place] [address] Clinical Aide: Mike Bill DO Basophils/100 WBC (Bld) 2 % Normal 0-2 [facility] Comment on above: Performed By: #### C LESA VALENZUELAX, PT #### [facility] [address] [place] [address] Clinical Aide: Mike Bill DO Eosinophils (Bld) [#/Vol] 0.08 10*3/uL Normal 0.0-0.4 [facility] Comment on above: Performed By: #### C LESA VALENZUELAX, PT #### [facility] [address] [place] [address] Clinical Aide: Mike Bill DO Eosinophils/100 WBC (Bld) 1 % Normal 0-4 [facility] Comment on above: Performed By: #### C BIANCA BMPX, PT #### [facility] [address] [place] [address] Clinical Aide: Mike Bill DO Erythrocyte distribution width (RBC) [Ratio] 23.8 % High 11.5-14.9 [facility] Comment on above: Performed By: #### C DP, BMPX, PT #### [facility] [place] [address] Clinical Aide: Mike Bill DO Hematocrit (Bld) [Volume fraction] 33.8 % Low 36-46 [facility] Comment on above: Performed By: #### C DP, BMPX, PT #### [facility] [place] [address] Clinical Aide: Mike Bill DO Hemoglobin (Bld) [Mass/Vol] 9.6 g/dL Low 12.0-16.0 [facility] Comment on above: Performed By: #### C DP, BMPX, PT #### [facility] [address] [place] [address] Clinical Aide: Mike Bill DO Lymphocytes (Bld) [#/Vol] 1.86 10*3/uL Normal 1.0-4.8 [facility] Comment on above: Performed By: #### C BIANCA, BMPX, PT #### [facility] [address] [place] [address] Clinical Aide: Mike Bill DO Lymphocytes/100 WBC (Bld) 23 % Low 24-44 [facility] Comment on above: Performed By: #### C DP, BMPX, PT #### [facility] [place] [address] Clinical Aide: Mike Bill DO MCH (RBC) [Entitic mass] 18.1 pg Low 26-34 [facility] Comment on above: Performed By: #### C DP, BMPX, PT #### [facility] [address] [place] [address] Clinical Aide: Mike Bill DO MCHC (RBC) [Mass/Vol] 28.5 g/dL Low 31-37 [facility] Comment on above: Performed By: #### C BIANCA, BMPX, PT #### [facility] [place] [address] Clinical Aide: Mike Bill DO MCV (RBC) [Entitic vol] 63.5 fL Low 80-100 [facility] Comment on above: Performed By: #### C DP, BMPX, PT #### [facility] [address] [place], [place] [address] [place] [address] Clinical Aide: Mike Bill DO Monocytes (Bld) [#/Vol] 0.97 10*3/uL Normal 0.1-1.3 [facility] Comment on above: Performed By: #### C BIANCA BMPX, PT #### [facility] [address] [place] [address] Clinical Aide: Mike Bill DO Monocytes/100 WBC (Bld) 12 % High 1-7 [facility] Comment on above: Performed By: #### C BIANCA, BMPX, PT #### [facility] [address] [place] [address] Clinical Aide: Mike Bill DO Morphology Jeffery (Bld) [Interp] MICROCYTOSIS PRESENT Normal [facility] Comment on above: Result Comment: HYPO CHROMIA PRESENT ANISOCYTOSIS PRESENT 1+ ACANTHOCYTES FEW ELLIPTOCYTES Performed By: #### C DP, BMPX, PT #### [facility] [address] [place] [address] Clinical Aide: Mike Bill DO Neutrophil (Seg) 62 % Normal 36-66 [facility] Comment on above: Performed By: #### C DP, BMPX, PT #### [facility] [address] [place] [address] Clinical Aide: Mike Bill DO Platelet mean volume (Bld) [Entitic vol] 8.5 fL Normal 6.0-12.0 [facility] Comment on above: Performed By: #### C DP, BMPX, PT #### [facility] [address] [place] [address] Clinical Aide: Mike Bill DO Platelets (Bld) [#/Vol] 214 10*3/uL Normal 150-450 [facility] Comment on above: Performed By: #### C DP, BMPX, PT #### [facility] [address] [place] [employer] [facility] [employer] [facility] [place] [address] Clinical Aide: Mike Bill DO RBC (Bld) [#/Vol] 5.32 10*6/uL High 4.0-5.2 [facility] Comment on above: Performed By: #### C DP, BMPX, PT #### [facility] [address] [place] [employer] [facility] [employer] [facility] [place] [address] Clinical Aide: Mike Bill DO WBC (Bld) [#/Vol] 8.1 10*3/uL Normal 3.5-11.0 [facility] Comment on above: Performed By: #### C DP, BMPX, PT #### [facility] [place] [address] Clinical Aide: Mike Bill DO CBC with auto differentialon 10-07-2023 Basophils (Bld) [#/Vol] 0.16 10*3/uL [facility] Basophils/100 WBC (Bld) 2 % 0 - 2 % [facility] Eosinophils (Bld) [#/Vol] 0.08 10*3/uL [facility] Eosinophils/100 WBC (Bld) 1 % 0 - 4 % [facility] Erythrocyte distribution width (RBC) [Ratio] 23.8 % High 11.5 - 14.9 % [facility] Hematocrit (Bld) [Volume fraction] 33.8 % Low 36 - 46 % [facility] Hemoglobin (Bld) [Mass/Vol] 9.6 g/dL Low 12.0 - 16.0 g/dL [facility] Lymphocytes/100 WBC (Bld) 23 % Low 24 - 44 % [facility] Lymphocytes/100 WBC (Bld) 1.86 % [facility] MCH (RBC) [Entitic mass] 18.1 pg Low 26 - [address] [facility] MCHC (RBC) [Mass/Vol] 28.5 g/dL Low 31 - 3 7 g/dL [facility] MCV (RBC) [Entitic vol] 63.5 fL Low 80 - [address] [facility] Monocytes/100 WBC (Bld) 12 % High 1 - 7 % [facility] Monocytes/100 WBC (Bld) 0.97 % [facility] Morphology Jeffery (Bld) [Interp] MICROCYTOSIS PRESENT [facility] Morphology Jeffery (Bld) [Interp] HYPOCHROMIA PRESENT [facility] Morphology [place]ery (Bld) [Interp] ANISOCYTOSIS PRESENT [facility] Morphology Jeffery (Bld) [Interp] 1+ ACANTHOCYTES FEW ELLIPTOCYTES [facility] Neutrophils/100 WBC (Bld) 62 % 36 - 66 % [facility] Platelet mean volume (Bld) [Entitic vol] 8.5 fL 6.0 - 12.[address] [facility] Platelets (Bld) [#/Vol] 214 10*3/uL [facility] RBC (Bld) [#/Vol] 5.32 10*6/uL High 4.0 - 5.2 m/uL [facility] Segmented neutrophils/100 WBC (Bld) 5.03 % [facility] WBC other (Bld) [#/Vol] 8.[address] [facility] EKG 12 LeadOrdered By: Satish Whitman on 10-07-2023 Atrial Rate [address] [facility] Work Phone: P [place] [address] [facility] [employer] Work Phone: P-R Interval 268 ms [facility] Work Phone: Q-T Interval 478 ms [facility] Work Phone: [phone] QRS Duration 206 ms [employer] [employer] Work Phone: [phone] QTc Calculation (Bazett) 551 ms [facility] Work Phone: [phone] R [place] -72 degrees [employer] Work Phone: [phone] [place] 98 degrees [employer] Work Phone: Ventricular Rate 80 BPM [employer] Work Phone: [phone] [employer] [employer] Work Phone: EKG 12 Leadon 10-07-2023 AV dual-paced rhythm with prolonged AV conduction Abnormal ECG When compared with ECG of 05-OCT-2023 19:31, (unconfirmed) No significant change was found [facility] Satish North MD - 10/07/2023 AV dual-paced rhythm with prolonged AV conduction Abnormal ECG When compared with ECG of 05-OCT-2023 19:31, (unconfirmed) No significant change was found [facility] No Panel Informationon 10-07 Interpretation and review of laboratory results Abnormal [facility] [employer] PTon 10-07-2023 INR Coag (PPP) [Relative time] 1.1 {INR} Normal [facility] Comment on above: Result Comment: Therapeutic Range: Moderate Anticoagulant Intensity: INR = 2.0-3.0 High Anticoagulant Intensity: INR = 2.5-3.5 Performed By: #### C DP, BMPX, PT #### [facility] [address] [place] [address] Clinical Aide: Mike Bill DO PT Coag (PPP) [Time] 14.9 s High 11.8-14.[address] [facility] Comment on above: Performed By: #### C DP, BMPX, PT #### [facility] [address] [place] [address] Clinical Aide: Mike Bill DO Protime-INRon 10-07-2023 INR Coag (PPP) [Relative time] 1.1 {INR} [facility] Comment on above: Therapeutic Range: Moderate Anticoagulant Intensity: INR = 2.0-3.0 High Anticoagulant Intensity: INR = 2.5-3.5 PT Coag (PPP) [Time] 14.9 s High [facility] Basic Metab w/rfx MGon 10-06 Anion gap [Moles/Vol] 14 mmol/L Normal 9-17 [facility] Comment on above: Performed By: #### B MPX ####[facility] [address] [place], [place] [address])[phone] Director: Mike Bill DO Calcium [Mass/Vol] 9.0 mg/dL Normal 8.6-10.4 [facility] Comment on above: Performed By: #### B MPX ####[facility] [id number] [facility] [place] [facility], [place] [address])[phone] Director: Mike Bill DO Chloride [Moles/Vol] 95 mmol/L Low 98-[address] [facility] Comment on above: Performed By: #### B MPX ####[facility] [address] [place] [address] Lab Director: Mike Bill DO CO2 [Moles/Vol] 23 mmol/L Normal 20-31 [facility] Comment on above: Performed By: #### B MPX ####[facility] [id number] [place] [address] Lab Director: Mike Bill DO Creatinine [Mass/Vol] 1.2 mg/dL High 0.5-0.9 [facility] Comment on above: Performed By: #### B MPX ####[facility] [id number] [facility] [place] [address] Lab Director: Mike Bill DO GFR/1.73 sq M.predicted among non-blacks MDRD (S/P/Bld) [Vol rate/Area] 54 mL/min/{1.73_m2} Low >60 [facility] Comment on above: Result Comment: These results are not intended for use in patients <18 years of age. eGFR results are calculated without a race factor using the 2020 CKD-EPI equation. Careful clinical correlation is recommended, particularly when comparing to results calculated using previous equations. The CKD-EPI equation is less accurate in patients with extremes of muscle mass, extra-renal metabolism of creatine, excessive creatine ingestion, or following therapy that affects renal tubular secretion. Performed By: #### B MPX ####[facility] [id number] [facility] [place] [address] Lab Director: Mike Bill DO Glucose [Mass/Vol] 97 mg/dL Normal 70-99 [facility] Comment on above: Performed By: #### B MPX ####[facility] [id number] [facility] [place] [address] Lab Director: Mike Bill DO Potassium [Moles/Vol] 4.3 mmol/L Normal 3.7-5.3 [facility] Comment on above: Result Comment: SPEC IMEN MODERATELY HEMOLYZED, RESULTS MAY BE ADVERSELY AFFECTED Performed By: #### B MPX ####[facility] [id number] [facility] [place] [address] Lab Director: Mike Bill DO Sodium [Moles/Vol] 132 mmol/L Low 135-144 [facility] Comment on above: Performed By: #### B MPX ####[facility] [id number] [facility] [place] [address] Lab Director: Mike Bill DO Urea nitrogen [Mass/Vol] 16 mg/dL Normal 6-20 [facility] Comment on above: Performed By: #### B MPX ####[facility] [id number] [place] [address] [facility] Director: Mike Bill DO Basic Metabolic Panel w/ Ref sam to MGon 10-06-2023 Anion gap [Moles/Vol] 14 mmol/L 9 - 17 mmol/L [facility] Calcium [Mass/Vol] 9.0 mg/dL 8.6 - 10. 4 mg/dL [facility] Chloride [Moles/Vol] 95 mmol/L Low 98 - 10 7 mmol/L [facility] CO2 [Moles/Vol] 23 mmol/L 20 - 31 mmol/L [facility] Creatinine [Mass/Vol] 1.2 mg/dL High 0.5 - 0.9 mg/dL [facility] GFR/1.73 sq M.predicted MDRD (S/P/Bld) [Vol rate/Area] 54 mL/min/{1.73_m2} Low - PINF [facility] Comment on above: These results are not intended for use in patients <18 years of age. eGFR results are calculated without a race factor using the 2020 CKD-EPI equation. Careful clinical correlation is recommended, particularly when comparing to results calculated using previous equations. The CKD-EPI equation is less accurate in patients with extremes of muscle mass, extra-renal metabolism of creatine, excessive creatine ingestion, or following therapy that affects renal tubular secretion. Glucose [Mass/Vol] 97 mg/dL 70 - 99 mg/dL [facility] Potassium [Moles/Vol] 4.3 mmol/L 3.7 - 5.3 mmol/L [facility] Comment on above: SPECIMEN MODERATELY HEMOLYZED, RESULTS MAY BE ADVERSELY AFFECTED Sodium [Moles/Vol] 132 mmol/L Low 135 - 144 mmol/L [facility] Urea nitrogen [Mass/Vol] 16 mg/dL 6 - 20 mg/dL [facility] CBC with Diffon 10-06-2023 Abs. Basophil 0.13 k/uL Normal 0.0-0.2 [facility] Comment on above: Performed By: #### C DP, PT, REJEC #### [facility] [facility] [place] [address] Clinical Aide: Mike Bill DO Abs.Neutrophil (Seg) 10.51 k/uL High 1.3-9.[address] [facility] Comment on above: Performed By: #### C DP, PT, REJEC #### [facility] [address] [place] [address] Clinical Aide: Mike Bill DO Basophils/100 WBC (Bld) 1 % Normal 0-2 [facility] Comment on above: Performed By: #### C DP, PT, REJEC #### [facility] [address] [place] [address] Clinical Aide: Mike Bill DO Eosinophils (Bld) [#/Vol] 0.00 10*3/uL Normal 0.0-0.4 [facility] Comment on above: Performed By: #### C DP, PT, REJEC #### [facility] [address] [place] [address] Clinical Aide: Mike Bill DO Eosinophils/100 WBC (Bld) 0 % Normal 0-4 [facility] Comment on above: Performed By: #### C DP, PT, REJEC #### [facility] [address] [place] [address] Clinical Aide: Mike Bill DO Erythrocyte distribution width (RBC) [Ratio] 23.8 % High 11.5-14.9 [facility] Comment on above: Performed By: #### C DP, PT, REJEC #### [facility] [address] [place] [address] Clinical Aide: Mike Bill DO Hematocrit (Bld) [Volume fraction] 38.6 % Normal 36-46 [facility] Comment on above: Performed By: #### C DP, PT, REJEC #### [facility] [place] [address] Clinical Aide: Mike Bill DO Hemoglobin (Bld) [Mass/Vol] 10.9 g/dL Low 12.0-16.0 [facility] Comment on above: Performed By: #### C DP, PT, REJEC #### [facility] [address] [place] [address] Clinical Aide: Mike Bill DO Lymphocytes (Bld) [#/Vol] 1.73 10*3/uL Normal 1.0-4.8 [facility] Comment on above: Performed By: #### C DP, PT, REJEC #### [facility] [address] [place] [address] Clinical Aide: Mike Bill DO Lymphocytes/100 WBC (Bld) 13 % Low 24-44 [facility] Comment on above: Performed By: #### C DP, PT, REJEC #### [facility] [address] [place] [address] Clinical Aide: Mike Bill DO MCH (RBC) [Entitic mass] 18.1 pg Low 26-34 [facility] Comment on above: Performed By: #### C DP, PT, REJEC #### [facility] [address] [place] [address] Clinical Aide: Mike Bill DO MCHC (RBC) [Mass/Vol] 28.1 g/dL Low 31-37 [facility] Comment on above: Performed By: #### C DP, PT, REJEC #### [facility] [address] [place] [address] Clinical Aide: Mike Bill DO MCV (RBC) [Entitic vol] 64.3 fL Low 80-100 [facility] Comment on above: Performed By: #### C DP, PT, REJEC #### [facility] [address] [place] [address] Clinical Aide: Mike Bill DO Monocytes (Bld) [#/Vol] 0.93 10*3/uL Normal 0.1-1.3 [facility] Comment on above: Performed By: #### C DP, PT, REJEC #### [facility] [address] [place] [address] Clinical Aide: Mike Bill DO Monocytes/100 WBC (Bld) 7 % Normal 1-7 [facility] Comment on above: Performed By: #### C DP, PT, REJEC #### [facility] [place] [address] Clinical Aide: Mike Bill DO Morphology Jeffery (Bld) [Interp] ANISOCYTOSIS PRESENT Normal [facility] Comment on above: Result Comment: HYPO CHROMIA PRESENT MICROCYTOSIS PRESENT 1+ ELLIPTOCYTES 1+ ECHINOCYTES FEW SCHISTOCYTES Performed By: #### C DP, PT, REJEC #### [facility] [place] [address] Clinical Aide: Mike Bill DO Neutrophil (Seg) 79 % High 36-66 [facility] Comment on above: Performed By: #### C DP, PT, REJEC #### [facility] [place] [address] Clinical Aide: Mike Bill DO Platelet mean volume (Bld) [Entitic vol] 9.2 fL Normal 6.0-12.0 [facility] Comment on above: Performed By: #### C DP, PT, REJEC #### [facility] [address] [place] [address] Clinical Aide: Mike Bill DO Platelets (Bld) [#/Vol] 226 10*3/uL Normal 150-450 [facility] Comment on above: Performed By: #### C DP, PT, REJEC #### [facility] [address] [place] [address] Clinical Aide: Mike Bill DO RBC (Bld) [#/Vol] 6.01 10*6/uL High 4.0-5.2 [facility] Comment on above: Performed By: #### C DP, PT, REJEC #### [facility] [address] [place] [address] Clinical Aide: Mike Bill DO WBC (Bld) [#/Vol] 13.3 10*3/uL High 3.5-11.0 [facility] Comment on above: Performed By: #### C DP, PT, REJEC #### [facility] [address] [place] [address] Clinical Aide: Mike Bill DO CBC with auto differentialon 10-06-2023 Basophils (Bld) [#/Vol] 0.13 10*3/uL [facility] Basophils/100 WBC (Bld) 1 % 0 - 2 % [facility] Eosinophils (Bld) [#/Vol] 0.00 10*3/uL [facility] Eosinophils/100 WBC (Bld) 0 % 0 - 4 % [facility] Erythrocyte distribution width (RBC) [Ratio] 23.8 % High 11.5 - 14.9 % [facility] Hematocrit (Bld) [Volume fraction] 38.6 % 36 - 46 % [facility] Hemoglobin (Bld) [Mass/Vol] 10.9 g/dL Low 12.0 - 16.0 g/dL [facility] Lymphocytes/100 WBC (Bld) 13 % Low 24 - 44 % [facility] Lymphocytes/100 WBC (Bld) 1.73 % [facility] MCH (RBC) [Entitic mass] 18.1 pg Low 26 - 34 pg [facility] MCHC (RBC) [Mass/Vol] 28.1 g/dL Low 31 - 3 7 g/dL [facility] MCV (RBC) [Entitic vol] 64.3 fL Low 80 - 100 fL [facility] Monocytes/100 WBC (Bld) 7 % 1 - 7 % [facility] Monocytes/100 WBC (Bld) 0.93 % [facility] Morphology Jeffery (Bld) [Interp] ANISOCYTOSIS PRESENT [facility] Morphology Jeffery (Bld) [Interp] HYPOCHROMIA PRESENT [facility] Morphology Jeffery (Bld) [Interp] MICROCYTOSIS PRESENT [facility] Morphology Jeffery (Bld) [Interp] 1+ ELLIPTOCYTES [facility] Morphology Jeffery (Bld) [Interp] 1+ ECHINOCYTES [facility] Morphology Jeffery (Bld) [Interp] FEW SCHISTOCYTES [facility] Neutrophils/100 WBC (Bld) 79 % High 36 - 66 % [facility] Platelet mean volume (Bld) [Entitic vol] 9.2 fL 6.0 - 12.0 fL [facility] Platelets (Bld) [#/Vol] 226 10*3/uL [facility] RBC (Bld) [#/Vol] 6.01 10*6/uL High 4.0 - 5.2 m/uL [facility] Segmented neutrophils/100 WBC (Bld) 10.51 % High [facility] WBC other (Bld) [#/Vol] 13.[address] [facility] CT HEAD WO CONTRASTon 2023 CT HEAD WO CONTRAST EXAMINATION: CT OF THE HEAD WITHOUT CONTRAST 10/05/2023 9:36 pm TECHNIQUE: CT of the head was performed without the administration of intravenous contrast. Automated exposure control, iterative reconstruction, and/or weight based adjustment of the mA/kV was utilized to reduce the radiation dose to as low as reasonably achievable. COMPARISON: None. HISTORY: ORDERING SYSTEM PROVIDED HISTORY: dizziness TECHNOLOGIST PROVIDED HISTORY: dizziness Decision Support Exception - unselect if not a suspected or confirmed emergency medical condition->Emergency Medical Condition (MA) Is the patient ?->No Reason for Exam: dizziness Additional signs and symptoms: pt states headaches, dizziness, weakness started today FINDINGS: BRAIN/VENTRICLES: Bifrontal distribution cortical atrophy. There is no acute intracranial hemorrhage, mass effect or midline shift. No abnormal extra-axial fluid collection. There are mild patchy periventricular and subcortical white matter changes. No acute large territory cortical infarction. There is no evidence of hydrocephalus. ORBITS: The visualized portion of the orbits demonstrate no acute abnormality. SINUSES: The visualized paranasal sinuses and mastoid air cells demonstrate no acute abnormality. SOFT TISSUES/SKULL: No acute abnormality of the visualized skull or soft tissues. IMPRESSION: 1. Mild patchy periventricular and subcortical white matter changes. Findings are favored to represent chronic small vessel ischemic changes. If clinical concerns for acute ischemia, further assessment with MRI is recommended. 2. Otherwise, no acute findings. 3. Bifrontal distribution cortical atrophy is greater than expected for patient's age. Interpreted by: Kelechi Cuevas DO Signed by: Kelechi Cuevas DO 10/05/23 Final result Normal [facility] CTA HEAD NECK W CONTRASTon 0 10-06-2023 CTA HEAD NECK W CONTRAST EXAMINATION: CTA OF THE HEAD AND NECK WITH CONTRAST 10/05/2023 8:36 pm: TECHNIQUE: CTA of the head and neck was performed with the administration of intravenous contrast. Multiplanar reformatted images are provided for review. MIP images are provided for review. Stenosis of the internal carotid arteries measured using NASCET criteria. Automated exposure control, iterative reconstruction, and/or weight based adjustment of the mA/kV was utilized to reduce the radiation dose to as low as reasonably achievable. COMPARISON: CT brain performed the same day HISTORY: ORDERING SYSTEM PROVIDED HISTORY: dizziness TECHNOLOGIST PROVIDED HISTORY: dizziness Decision Support Exception - unselect if not a suspected or confirmed emergency medical condition->Emergency Medical Condition (MA) Reason for Exam: dizziness Additional signs and symptoms: pt states dizziness, headaches, weakness started today, low potassium FINDINGS: CTA NECK: AORTIC ARCH/ARCH VESSELS: No dissection or arterial injury. No significant stenosis of the brachiocephalic or subclavian arteries. CAROTID ARTERIES: No dissection, arterial injury, or hemodynamically significant stenosis by NASCET criteria. VERTEBRAL ARTERIES: No dissection, arterial injury, or significant stenosis. SOFT TISSUES: Emphysema in the imaged lung apices. No cervical or superior mediastinal lymphadenopathy. The larynx and pharynx are unremarkable. No acute abnormality of the salivary and thyroid glands. Left chest wall pacemaker device is in place. Partially visualized postsurgical changes related to prior median sternotomy. BONES: No acute osseous abnormality. CTA HEAD: ANTERIOR CIRCULATION: No significant stenosis of the intracranial internal carotid, anterior cerebral, or middle cerebral arteries. There is a cavernous left ICA aneurysm projecting medially measuring 5 x 5 x 6 mm with a 3 mm neck. POSTERIOR CIRCULATION: No significant stenosis of the vertebral, basilar, or posterior cerebral arteries. No aneurysm. There are bilateral posterior communicating arteries. OTHER: No dural venous sinus thrombosis on this non-dedicated study. BRAIN: No mass effect or midline shift. No extra-axial fluid collection. The mckeon-white differentiation is maintained. IMPRESSION: 1. No evidence of significant arterial stenosis or occlusion in the head or neck. 2. 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 3. Emphysema in the imaged lung apices. Interpreted by: Brittney Lawsno MD Signed by: Brittney Lawson MD 10/05/23 Final result Normal [facility] K (Potassium)on 10-06-2023 Potassium [Moles/Vol] 3.4 mmol/L Low 3.7-5.3 [facility] Comment on above: Result Comment: SPEC IMEN MODERATELY HEMOLYZED, RESULTS MAY BE ADVERSELY AFFECTED Performed By: #### K , TSHX ####[facility] [id number] [facility] [place] [address] lab Director: Mike Bill DO No Panel Informationon 10-06 Interpretation and review of laboratory results Abnormal [facility] PTon 10-06-2023 INR Coag (PPP) [Relative time] 1.1 {INR} Normal [facility] Comment on above: Result Comment: Therapeutic Range: Moderate Anticoagulant Intensity: INR = 2.0-3.0 High Anticoagulant Intensity: INR = 2.5-3.5 Performed By: #### C DP, PT, REJEC #### [facility] [address] [facility] [place] [address] Clinical Aide: Mike Bill DO PT Coag (PPP) [Time] 14.7 s High 11.8-14.[address] [facility] Comment on above: Performed By: #### C DP, PT, REJEC #### [facility] [address] [place] [address] Clinical Aide: Mike Bill DO Path Review, Smearon 024 Pathologist review Pathologist comment (Bld) [Interp] ELECTRONICALLY SIGNED. ELENITA CARR M.D. [facility] Potassiumon 10-06-2023 Interpretation and review of laboratory results Abnormal [facility] Potassium [Moles/Vol] 3.4 mmol/L Low 3.7 - 5.3 mmol/L [facility] Comment on above: SPECIMEN MODERATELY HEMOLYZED, RESULTS MAY BE ADVERSELY AFFECTED [facility] Protime-INRon 10-06-2023 INR Coag (PPP) [Relative time] 1.1 {INR} [facility] Comment on above: Therapeutic Range: Moderate Anticoagulant Intensity: INR = 2.0-3.0 High Anticoagulant Intensity: INR = 2.5-3.5 PT Coag (PPP) [Time] 14.7 s High [facility] SURGICAL PATHOLOGY REPORTon 10-06-2023 Surgical Pathology Report [id number] [facility] ANATOMIC PATHOLOGY [address] [place] [phone] SURGICAL PATHOLOGY CONSULTATION Patient Name: ESSENCE VINCENT MR#: [id number] Specimen #[id number] Procedures/Addenda PERIPHERAL BLOOD REPORT Date Ordered: 10/06/2023 Status: Signed Out Date Complete: 10/06/2023 By: Elenita Carr M.D. Date Reported: 10/06/2023 INTERPRETATION Peripheral blood: - Marked microcytic hypochromic anemia with increased RBC count and moderate anisopoikilocytosis. - White blood cells with normal morphology. No blasts. - Platelets with unremarkable morphology. - Red blood cell findings could indicated iron deficiency anemia or hemoglobinopathy such as beta thalassemia. Correlation with iron studies is recommended. If clinically indicated, hemoglobin electrophoresis could be considered to assess for hemoglobinopathy. RESULTS-COMMENTS PERIPHERAL BLOOD STUDY CBC: Please see the electronic health record for CBC parameters ([id number], 10/05/2023, TIME UNKNOWN). PLATELETS: Platelets show normal morphology. LEUKOCYTES: White blood cells show normal morphology. No atypical lymphocytes. No dysplasia. There are no blasts. ERYTHROCYTES: Microcytic hypochromic anemia with moderate anisopoikilocytosis and elevated RBC count. Note: The electronic health record is reviewed. Elenita Carr M.D. Source: A: Peripheral Blood [facility] Smear to Pathologiston 10-06 Smear to Pathologist ELECTRONICALLY SIGN ED. ELENITA CARR M.D. Normal [facility] Comment on above: Performed By: #### P T, TROPI, ALCB, CDP, MG, CP, RETCT ####[facility] [id number] [facility] [place] [address] Lab Director: Mike Bill DO#### PATH ####[address] [address] Lab Director: Heladio Lawson MD Specimen Rejectionon 024 Reason for rejection Unable to perform testing: Specimen hemolyzed. Normal [facility] Comment on above: Performed By: #### C DP, PT, REJEC #### [facility] [address] [facility] [place] [address] Clinical Aide: Mike Bill DO Source of sample .BLOOD Normal [facility] Comment on above: Performed By: #### C DP, PT, REJEC #### [facility] [address] [facility] [place] [address] Clinical Aide: Mike Bill DO Test ordered BMPX Normal [facility] Comment on above: Performed By: #### C DP, PT, REJEC #### [facility] [address] [facility] [place] [address] Clinical Aide: Mike Bill DO TSH w/reflex to FT4on 2023 Thyroid Stim. Horm. 3.45 uIU/mL Normal 0.30-5.[address] [facility] Comment on above: Performed By: #### K , TSHX ####[facility] [id number] [place] [address] Lab Director: Mike Bill DO TSH with Reflexon 10-06-2023 TSH Qn 3.45 m[IU]/L [facility] Troponinon 10-06-2023 Troponin, High Sens 25 ng/L High 0-14 [facility] Comment on above: Result Comment: High Sensitivity Troponin values cannot be compared with other Troponin methodologies. Performed By: #### T ROPI ####[facility] [id number] [place] [address] lab Director: Mike Bill DO CBC with Auto Differentialon 10-05-2023 Basophils (Bld) [#/Vol] 0.11 10*3/uL [facility] Basophils/100 WBC (Bld) 1 % 0 - 2 % [facility] Eosinophils (Bld) [#/Vol] 0.11 10*3/uL [facility] Eosinophils/100 WBC (Bld) 1 % 0 - 4 % [facility] Erythrocyte distribution width (RBC) [Ratio] 23.6 % High 11.5 - 14.9 % [facility] Hematocrit (Bld) [Volume fraction] 35.7 % Low 36 - 46 % [facility] Hemoglobin (Bld) [Mass/Vol] 10.5 g/dL Low 12.0 - 16.0 g/dL [facility] Lymphocytes/100 WBC (Bld) 20 % Low 24 - 44 % [facility] Lymphocytes/100 WBC (Bld) 2.16 % [facility] MCH (RBC) [Entitic mass] 18.1 pg Low 26 - 34 pg [facility] MCHC (RBC) [Mass/Vol] 29.4 g/dL Low 31 - 3 7 g/dL [facility] MCV (RBC) [Entitic vol] 61.7 fL Low 80 - 100 fL [facility] Monocytes/100 WBC (Bld) 11 % High 1 - 7 % [facility] Monocytes/100 WBC (Bld) 1.19 % [facility] Morphology Jeffery (Bld) [Interp] ANISOCYTOSIS PRESENT [facility] Morphology Jeffery (Bld) [Interp] MICROCYTOSIS PRESENT [facility] Morphology Jeffery (Bld) [Interp] HYPOCHROMIA PRESENT [facility] Morphology Jeffery (Bld) [Interp] ELLIPTOCYTES [facility] Morphology Jeffery (Bld) [Interp] ECHINOCYTES [facility] Morphology Jeffery (Bld) [Interp] STOMATOCYTES [facility] Neutrophils/100 WBC (Bld) 67 % High 36 - 66 % [facility] Platelet mean volume (Bld) [Entitic vol] 8.6 fL 6.0 - 12.0 fL [facility] Platelets (Bld) [#/Vol] 268 10*3/uL [facility] RBC (Bld) [#/Vol] 5.79 10*6/uL High 4.0 - 5.2 m/uL [facility] Segmented neutrophils/100 WBC (Bld) 7.23 % [facility] WBC other (Bld) [#/Vol] 10.8 [facility] CBC with Diffon 10-05-2023 Abs. Basophil 0.11 k/uL Normal 0.0-0.2 [facility] Comment on above: Performed By: #### P T, TROPI, ALCB, CDP, MG, CP, RETCT ####[facility] [id number] [place] [address] [facility] Director: Mike Bill DO#### PATH ####[facility] [place] [address] Lab Director: Heladio Lawson MD Abs.Neutrophil (Seg) 7.23 k/uL Normal 1.3-9.[address] [facility] Comment on above: Performed By: #### P T, TROPI, ALCB, CDP, MG, CP, RETCT ####[facility] [id number] [place] [address] [facility] Director: Mike Bill DO#### PATH ####[address] [address] Lab Director: Heladio Lawson MD Basophils/100 WBC (Bld) 1 % Normal 0-2 [facility] Comment on above: Performed By: #### P T, TROPI, ALCB, CDP, MG, CP, RETCT ####[address] [place] [place], [place] [address])[id number] Director: Mike Bill DO#### PATH ####[address] [address] Lab Director: Heladio Lawson MD Eosinophils (Bld) [#/Vol] 0.11 10*3/uL Normal 0.0-0.4 [facility] Comment on above: Performed By: #### P T, TROPI, ALCB, CDP, MG, CP, RETCT ####[facility] [id number] [place] [address] Lab Director: Mike Bill DO#### PATH ####[address] [address] Lab Director: Heladio Lawson MD Eosinophils/100 WBC (Bld) 1 % Normal 0-4 [facility] Comment on above: Performed By: #### P T, TROPI, ALCB, CDP, MG, CP, RETCT ####[facility] [id number] [place] [address] Lab Director: Mike Bill DO#### PATH ####[address] [address] Lab Director: Heladio Lawson MD Erythrocyte distribution width (RBC) [Ratio] 23.6 % High 11.5-14.9 [facility] Comment on above: Performed By: #### P T, TROPI, ALCB, CDP, MG, CP, RETCT ####[facility] [id number] [facility] [place] [address] [facility] Director: Mike Bill DO#### PATH ####[address] [address] Lab Director: Heladio Lawson MD Hematocrit (Bld) [Volume fraction] 35.7 % Low 36-46 [facility] Comment on above: Performed By: #### P T, TROPI, ALCB, CDP, MG, CP, RETCT ####[facility] Rrx8501 [facility] [place] [address] Lab Director: Mike Bill DO#### PATH ####[address] [address])[phone] Director: Heladio Lawson MD Hemoglobin (Bld) [Mass/Vol] 10.5 g/dL Low 12.0-16.0 [facility] Comment on above: Performed By: #### P T, TROPI, ALCB, CDP, MG, CP, RETCT ####[facility] Zin[address] [facility] [place] [address] Lab Director: Mike Bill DO#### PATH ####[address] [address] Lab Director: Heladio Lawson MD Lymphocytes (Bld) [#/Vol] 2.16 10*3/uL Normal 1.0-4.8 [facility] Comment on above: Performed By: #### P T, TROPI, ALCB, CDP, MG, CP, RETCT ####[facility] Uam0193 [place] [address] [facility] Director: Mike Bill DO#### PATH ####[address] [address] [facility] Director: Heladio Lawson MD Lymphocytes/100 WBC (Bld) 20 % Low 24-44 [facility] Comment on above: Performed By: #### P T, TROPI, ALCB, CDP, MG, CP, RETCT ####[address] [address])[phone] Director: Mike Bill DO#### PATH ####[place] [address] [facility] Director: Heladio Lawson MD MCH (RBC) [Entitic mass] 18.1 pg Low 26-34 [facility] Comment on above: Performed By: #### P T, TROPI, ALCB, CDP, MG, CP, RETCT ####[facility] Ubn9503 [place] [address] [facility] Director: Mike Bill DO#### PATH ####[address] [address] [facility] Director: Heladio Lawson MD MCHC (RBC) [Mass/Vol] 29.4 g/dL Low 31-37 [facility] Comment on above: Performed By: #### P T, TROPI, ALCB, CDP, MG, CP, RETCT ####[facility] [address] [place], [place] [address])[phone] Director: Mike Bill DO#### PATH ####[address] [address] Lab Director: Heladio Lawson MD MCV (RBC) [Entitic vol] 61.7 fL Low 80-100 [facility] Comment on above: Performed By: #### P T, TROPI, ALCB, CDP, MG, CP, RETCT ####[facility] Igj9[address] [place], [place] [phone] Director: Mike Bill DO#### PATH ####[address] [phone] Director: Heladio Lawson MD Monocytes (Bld) [#/Vol] 1.19 10*3/uL Normal 0.1-1.3 [facility] Comment on above: Performed By: #### P T, TROPI, ALCB, CDP, MG, CP, RETCT ####[facility] Hpi0530 [place], [place] [phone] Director: Mike Bill DO#### PATH ####[address] [phone])[phone] Director: Heladio Lawson MD Monocytes/100 WBC (Bld) 11 % High 1-7 [facility] Comment on above: Performed By: #### P T, TROPI, ALCB, CDP, MG, CP, RETCT ####[facility] Iuy0150 [place], [place] [phone] Director: Mike Bill DO#### PATH ####[address] [phone] Director: Heladio Lawson MD Morphology Jeffery (Bld) [Interp] ANISOCYTOSIS PRESENT Normal [facility] Comment on above: Result Comment: MICR OCYTOSIS PRESENT HYPOCHROMIA PRESENT ELLIPTOCYTES ECHINOCYTES STOMATOCYTES Performed By: #### P T, TROPI, ALCB, CDP, MG, CP, RETCT ####[facility] [id number] [place] [address] Lab Director: Mike Bill DO#### PATH ####[address] [phone] Director: Heladio Lawson MD Neutrophil (Seg) 67 % High 36-66 [facility] Comment on above: Performed By: #### P T, TROPI, ALCB, CDP, MG, CP, RETCT ####[facility] Hte3350 [place], [place] [phone] Director: Mike Bill DO#### PATH ####[address] [address] Lab Director: Heladio Lawson MD Platelet mean volume (Bld) [Entitic vol] 8.6 fL Normal 6.0-12.0 [facility] Comment on above: Performed By: #### P T, TROPI, ALCB, CDP, MG, CP, RETCT ####[facility] Bpw6973 [place] [address] Lab Director: Mike Bill DO#### PATH ####[address] [address] Lab Director: Heladio Lawson MD Platelets (Bld) [#/Vol] 268 10*3/uL Normal 150-450 [facility] Comment on above: Performed By: #### P T, TROPI, ALCB, CDP, MG, CP, RETCT ####[facility] Uiv[address] [place], [place] [phone] Director: Mike Bill DO#### PATH ####[address] [address] Lab Director: Heladio Lawson MD RBC (Bld) [#/Vol] 5.79 10*6/uL High 4.0-5.2 [facility] Comment on above: Performed By: #### P T, TROPI, ALCB, CDP, MG, CP, RETCT ####[facility] Yap5[address] [place], [place] [phone] Director: Mike Bill DO#### PATH ####[facility] [address] [place] [address] Lab Director: Heladio Lawson MD WBC (Bld) [#/Vol] 10.8 10*3/uL Normal 3.5-11.0 [facility] Comment on above: Performed By: #### P T, TROPI, ALCB, CDP, MG, CP, RETCT ####[facility] Phq6247 [place] [address] Lab Director: Mike Bill DO#### PATH ####[facility] [place] [address] Lab Director: Heladio Lawson MD CT Head WO contraston 2023 1. Mild patchy periventricular and subcortical white matter changes. Findings are favored to represent chronic small vessel ischemic changes. If clinical concerns for acute ischemia, further assessment with MRI is recommended. 2. Otherwise, no acute findings. 3. Bifrontal distribution cortical atrophy is greater than expected for patient's age. [facility] RIS CONSOLIDATED EXAMINATION: CT OF THE HEAD WITHOUT CONTRAST 10/05/2023 9:36 pm TECHNIQUE: CT of the head was performed without the administration of intravenous contrast. Automated exposure control, iterative reconstruction, and/or weight based adjustment of the mA/kV was utilized to reduce the radiation dose to as low as reasonably achievable. COMPARISON: None. HISTORY: ORDERING SYSTEM PROVIDED HISTORY: dizziness TECHNOLOGIST PROVIDED HISTORY: dizziness Decision Support Exception - unselect if not a suspected or confirmed emergency medical condition->Emergency Medical Condition (MA) Is the patient ?->No Reason for Exam: dizziness Additional signs and symptoms: pt states headaches, dizziness, weakness started today FINDINGS: BRAIN/VENTRICLES: Bifrontal distribution cortical atrophy. There is no acute intracranial hemorrhage, mass effect or midline shift. No abnormal extra-axial fluid collection. There are mild patchy periventricular and subcortical white matter changes. No acute large territory cortical infarction. There is no evidence of hydrocephalus. ORBITS: The visualized portion of the orbits demonstrate no acute abnormality. SINUSES: The visualized paranasal sinuses and mastoid air cells demonstrate no acute abnormality. SOFT TISSUES/SKULL: No acute abnormality of the visualized skull or soft tissues. [facility] CONSOLIDATED Kelechi Cuevas DO - 10/05/2023 EXAMINATION: CT OF THE HEAD WITHOUT CONTRAST 10/05/2023 9:36 pm TECHNIQUE: CT of the head was performed without the administration of intravenous contrast. Automated exposure control, iterative reconstruction, and/or weight based adjustment of the mA/kV was utilized to reduce the radiation dose to as low as reasonably achievable. COMPARISON: None. HISTORY: ORDERING SYSTEM PROVIDED HISTORY: dizziness TECHNOLOGIST PROVIDED HISTORY: dizziness Decision Support Exception - unselect if not a suspected or confirmed emergency medical condition->Emergency Medical Condition (MA) Is the patient ?->No Reason for Exam: dizziness Additional signs and symptoms: pt states headaches, dizziness, weakness started today FINDINGS: BRAIN/VENTRICLES: Bifrontal distribution cortical atrophy. There is no acute intracranial hemorrhage, mass effect or midline shift. No abnormal extra-axial fluid collection. There are mild patchy periventricular and subcortical white matter changes. No acute large territory cortical infarction. There is no evidence of hydrocephalus. ORBITS: The visualized portion of the orbits demonstrate no acute abnormality. SINUSES: The visualized paranasal sinuses and mastoid air cells demonstrate no acute abnormality. SOFT TISSUES/SKULL: No acute abnormality of the visualized skull or soft tissues. IMPRESSION: 1. Mild patchy periventricular and subcortical white matter changes. Findings are favored to represent chronic small vessel ischemic changes. If clinical concerns for acute ischemia, further assessment with MRI is recommended. 2. Otherwise, no acute findings. 3. Bifrontal distribution cortical atrophy is greater than expected for patient's age. [facility] CTA Head vessels and Neck ve ssels W contrast Noah 10-05-2023 1. No evidence of significant arterial stenosis or occlusion in the head or neck. 2. 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 3. Emphysema in the imaged lung apices. [facility] CONSOLIDATED EXAMINATION: CTA OF THE HEAD AND NECK WITH CONTRAST 10/05/2023 8:36 pm: TECHNIQUE: CTA of the head and neck was performed with the administration of intravenous contrast. Multiplanar reformatted images are provided for review. MIP images are provided for review. Stenosis of the internal carotid arteries measured using NASCET criteria. Automated exposure control, iterative reconstruction, and/or weight based adjustment of the mA/kV was utilized to reduce the radiation dose to as low as reasonably achievable. COMPARISON: CT brain performed the same day HISTORY: ORDERING SYSTEM PROVIDED HISTORY: dizziness TECHNOLOGIST PROVIDED HISTORY: dizziness Decision Support Exception - unselect if not a suspected or confirmed emergency medical condition->Emergency Medical Condition (MA) Reason for Exam: dizziness Additional signs and symptoms: pt states dizziness, headaches, weakness started today, low potassium FINDINGS: CTA NECK: AORTIC ARCH/ARCH VESSELS: No dissection or arterial injury. No significant stenosis of the brachiocephalic or subclavian arteries. CAROTID ARTERIES: No dissection, arterial injury, or hemodynamically significant stenosis by NASCET criteria. VERTEBRAL ARTERIES: No dissection, arterial injury, or significant stenosis. SOFT TISSUES: Emphysema in the imaged lung apices. No cervical or superior mediastinal lymphadenopathy. The larynx and pharynx are unremarkable. No acute abnormality of the salivary and thyroid glands. Left chest wall pacemaker device is in place. Partially visualized postsurgical changes related to prior median sternotomy. BONES: No acute osseous abnormality. CTA HEAD: ANTERIOR CIRCULATION: No significant stenosis of the intracranial internal carotid, anterior cerebral, or middle cerebral arteries. There is a cavernous left ICA aneurysm projecting medially measuring 5 x 5 x 6 mm with a 3 mm neck. POSTERIOR CIRCULATION: No significant stenosis of the vertebral, basilar, or posterior cerebral arteries. No aneurysm. There are bilateral posterior communicating arteries. OTHER: No dural venous sinus thrombosis on this non-dedicated study. BRAIN: No mass effect or midline shift. No extra-axial fluid collection. The mckeon-white differentiation is maintained. [facility] Brittney Roque MD - 10/05/2023 EXAMINATION: CTA OF THE HEAD AND NECK WITH CONTRAST 10/05/2023 8:36 pm: TECHNIQUE: CTA of the head and neck was performed with the administration of intravenous contrast. Multiplanar reformatted images are provided for review. MIP images are provided for review. Stenosis of the internal carotid arteries measured using NASCET criteria. Automated exposure control, iterative reconstruction, and/or weight based adjustment of the mA/kV was utilized to reduce the radiation dose to as low as reasonably achievable. COMPARISON: CT brain performed the same day HISTORY: ORDERING SYSTEM PROVIDED HISTORY: dizziness TECHNOLOGIST PROVIDED HISTORY: dizziness Decision Support Exception - unselect if not a suspected or confirmed emergency medical condition->Emergency Medical Condition (MA) Reason for Exam: dizziness Additional signs and symptoms: pt states dizziness, headaches, weakness started today, low potassium FINDINGS: CTA NECK: AORTIC ARCH/ARCH VESSELS: No dissection or arterial injury. No significant stenosis of the brachiocephalic or subclavian arteries. CAROTID ARTERIES: No dissection, arterial injury, or hemodynamically significant stenosis by NASCET criteria. VERTEBRAL ARTERIES: No dissection, arterial injury, or significant stenosis. SOFT TISSUES: Emphysema in the imaged lung apices. No cervical or superior mediastinal lymphadenopathy. The larynx and pharynx are unremarkable. No acute abnormality of the salivary and thyroid glands. Left chest wall pacemaker device is in place. Partially visualized postsurgical changes related to prior median sternotomy. BONES: No acute osseous abnormality. CTA HEAD: ANTERIOR CIRCULATION: No significant stenosis of the intracranial internal carotid, anterior cerebral, or middle cerebral arteries. There is a cavernous left ICA aneurysm projecting medially measuring 5 x 5 x 6 mm with a 3 mm neck. POSTERIOR CIRCULATION: No significant stenosis of the vertebral, basilar, or posterior cerebral arteries. No aneurysm. There are bilateral posterior communicating arteries. OTHER: No dural venous sinus thrombosis on this non-dedicated study. BRAIN: No mass effect or midline shift. No extra-axial fluid collection. The mckeon-white differentiation is maintained. IMPRESSION: 1. No evidence of significant arterial stenosis or occlusion in the head or neck. 2. 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 3. Emphysema in the imaged lung apices. [facility] Comp Metabolic Profon 2023 Albumin [Mass/Vol] 4.1 g/dL Normal 3.5-5.2 [facility] Comment on above: Performed By: #### P T, TROPI, ALCB, CDP, MG, CP, RETCT ####[facility] [address] [place] [address] Lab Director: Mike Bill DO#### PATH ####[address] [address] Lab Director: Heladio Lawson MD Alkaline Phos 316 U/L High 35-104 [facility] Comment on above: Performed By: #### P T, TROPI, ALCB, CDP, MG, CP, RETCT ####[facility] Dhc2144 [place], [place] [address])[phone] Director: Mike Bill DO#### PATH ####[address] [address] Lab Director: Heladio Lawson MD ALT [Catalytic activity/Vol] 19 U/L Normal 5-33 [facility] Comment on above: Performed By: #### P T, TROPI, ALCB, CDP, MG, CP, RETCT ####[address] [place], [place] [address])[phone] Director: Mike Bill DO#### PATH ####[address] [address] Lab Director: Heladio Lawson MD Anion gap [Moles/Vol] 19 mmol/L High 9-17 [facility] Comment on above: Performed By: #### P T, TROPI, ALCB, CDP, MG, CP, RETCT ####[facility] Bwo5391 [place], [place] [address])[phone] Director: Mike Bill DO#### PATH ####[address] [address] Lab Director: Heladio Lawson MD AST [Catalytic activity/Vol] 55 U/L High <32 [facility] Comment on above: Performed By: #### P T, TROPI, ALCB, CDP, MG, CP, RETCT ####[facility] Mnm9881 [place] [address] Lab Director: Mike Bill DO#### PATH ####[address] [address] Lab Director: Heladio Lawson MD Bilirubin [Mass/Vol] 0.7 mg/dL Normal 0.3-1.[address] [facility] Comment on above: Performed By: #### P T, TROPI, ALCB, CDP, MG, CP, RETCT ####[facility] Dtf8970 [place] [address] Lab Director: Mike Bill DO#### PATH ####[address] [address] Lab Director: Heladio Lawson MD Calcium [Mass/Vol] 9.7 mg/dL Normal 8.6-10.4 [facility] Comment on above: Performed By: #### P T, TROPI, ALCB, CDP, MG, CP, RETCT ####[facility] Fjn6354 [place] [address] Lab Director: Mike Bill DO#### PATH ####[address] [address] Lab Director: Heladio Lawson MD Chloride [Moles/Vol] 96 mmol/L Low 98-[address] [facility] Comment on above: Performed By: #### P T, TROPI, ALCB, CDP, MG, CP, RETCT ####[facility] Icc4286 [place] [address] Lab Director: Mike Bill DO#### PATH ####[address] [address] Lab Director: Heladio Lawson MD CO2 [Moles/Vol] 23 mmol/L Normal 20-31 [facility] Comment on above: Performed By: #### P T, TROPI, ALCB, CDP, MG, CP, RETCT ####[facility] Vft3011 [place], [place] [phone] Director: Mike Bill DO#### PATH ####[address] [address] Lab Director: Heladio Lawson MD Creatinine [Mass/Vol] 1.2 mg/dL High 0.5-0.9 [facility] Comment on above: Performed By: #### P T, TROPI, ALCB, CDP, MG, CP, RETCT ####[facility] [id number] [place] [address])[phone] Director: Mike Bill DO#### PATH ####[address] [address])[phone] Director: Heladio Lawson MD GFR/1.73 sq M.predicted among non-blacks MDRD (S/P/Bld) [Vol rate/Area] 54 mL/min/{1.73_m2} Low >60 [facility] Comment on above: Result Comment: These results are not intended for use in patients <18 years of age. eGFR results are calculated without a race factor using the 2020 CKD-EPI equation. Careful clinical correlation is recommended, particularly when comparing to results calculated using previous equations. The CKD-EPI equation is less accurate in patients with extremes of muscle mass, extra-renal metabolism of creatine, excessive creatine ingestion, or following therapy that affects renal tubular secretion. Performed By: #### P T, TROPI, ALCB, CDP, MG, CP, RETCT ####[facility] Faw[address]386 [place] [address] Lab Director: Mike Bill DO#### PATH ####[address] [address] Lab Director: Heladio Lawson MD Glucose [Mass/Vol] 181 mg/dL High 70-99 [facility] Comment on above: Performed By: #### P T, TROPI, ALCB, CDP, MG, CP, RETCT ####[facility] Dtu[address]128 [place], [place] [phone] Director: Mike Bill DO#### PATH ####[address] [place] [address] Lab Director: Heladio Lawson MD Potassium [Moles/Vol] 2.2 mmol/L Critically low 3.7-5.3 [facility] Comment on above: Performed By: #### P T, TROPI, ALCB, CDP, MG, CP, RETCT ####[facility] [address] [place] [address] [phone])[phone] Director: Mike Bill DO#### PATH ####[address] [address] Lab Director: Heladio Lawson MD Protein [Mass/Vol] 8.1 g/dL Normal 6.4-8.3 [facility] Comment on above: Performed By: #### P T, TROPI, ALCB, CDP, MG, CP, RETCT ####[facility] [id number] [place] [address] Lab Director: Mike Bill DO#### PATH ####[address] [address] Lab Director: Heladio Lawson MD Sodium [Moles/Vol] 138 mmol/L Normal 135-144 [facility] Comment on above: Performed By: #### P T, TROPI, ALCB, CDP, MG, CP, RETCT ####[facility] Mis[address] [place], [place] [phone] Director: Mike Bill DO#### PATH ####[address] [place] [address] Lab Director: Heladio Lawson MD Urea nitrogen [Mass/Vol] 17 mg/dL Normal 6-20 [facility] Comment on above: Performed By: #### P T, TROPI, ALCB, CDP, MG, CP, RETCT ####[facility] [address] [place] [address] Lab Director: Mike Bill DO#### PATH ####[facility] [address] [place] [address] lab Director: Heladio Lawson MD Comprehensive Metabolic Pane [facility] 10-05-2023 Albumin [Mass/Vol] 4.1 g/dL 3.5 - 5.2 g/dL [facility] ALP [Catalytic activity/Vol] 316 U/L High 35 - 104 U/L [facility] ALT [Catalytic activity/Vol] 19 U/L 5 - 33 U/L [facility] Anion gap [Moles/Vol] 19 mmol/L High 9 - 17 mmol/L [facility] AST [Catalytic activity/Vol] 55 U/L High NINF - 32 U/L [facility] Bilirubin [Mass/Vol] 0.7 mg/dL 0.3 - 1 .2 mg/dL [facility] Calcium [Mass/Vol] 9.7 mg/dL 8.6 - 10. 4 mg/dL [facility] Chloride [Moles/Vol] 96 mmol/L Low 98 - 10 7 mmol/L [facility] CO2 [Moles/Vol] 23 mmol/L 20 - 31 mmol/L [facility] Creatinine [Mass/Vol] 1.2 mg/dL High 0.5 - 0.9 mg/dL [facility] GFR/1.73 sq M.predicted MDRD (S/P/Bld) [Vol rate/Area] 54 mL/min/{1.73_m2} Low - PINF [facility] Comment on above: These results are not intended for use in patients <18 years of age. eGFR results are calculated without a race factor using the 2020 CKD-EPI equation. Careful clinical correlation is recommended, particularly when comparing to results calculated using previous equations. The CKD-EPI equation is less accurate in patients with extremes of muscle mass, extra-renal metabolism of creatine, excessive creatine ingestion, or following therapy that affects renal tubular secretion. Glucose [Mass/Vol] 181 mg/dL High 70 - 99 mg/dL [facility] Potassium [Moles/Vol] 2.2 mmol/L Critically low 3.7 - 5.3 mmol/L [facility] Protein [Mass/Vol] 8.1 g/dL 6.4 - 8.3 g/dL [facility] Sodium [Moles/Vol] 138 mmol/L 135 - 144 mmol/L [facility] Urea nitrogen [Mass/Vol] 17 mg/dL 6 - 20 mg/dL [facility] Drug Scr, Abuse, Uron 2023 Amphetamine(s),Ur Negative Normal NEG [facility] Comment on above: Result Comment: (Positive cutoff 1000 ng/mL) Performed By: #### U MICAO, UAX, INDIRA ####[facility] Bty[address] [place] [address] Lab Director: Mike Bill DO Barbiturate(s),Ur Positive Abnormal NEG [facility] Comment on above: Result Comment: (Positive cutoff 200 ng/mL) Performed By: #### U MICAO, UAX, INDIRA ####[facility] Now[address] [facility] [place] [address] Lab Director: Mike Bill DO Benzodiazepine(s) Negative Normal NEG [facility] Comment on above: Result Comment: (Positive cutoff 200 ng/mL) Performed By: #### U MICAO, UAX, INDIRA ####[facility] Xln1327 [place] [address] Lab Director: Mike Bill DO Cannabinoid(s),Ur Positive Abnormal NEG [facility] Comment on above: Result Comment: (Positive cutoff 50 ng/mL) Performed By: #### U MICAO, UAX, INDIRA ####[facility] Wou[address] [facility] [place] [address] Lab Director: Mike Bill DO Cocaine Metabolite Negative Normal NEG [facility] Comment on above: Result Comment: (Positive cutoff 300 ng/mL) Performed By: #### U MICAO, UAX, INDIRA ####[facility] [address]am[address] [place] [address] Lab Director: Mike Bill DO Fentanyl, Urine Negative Normal NEG [facility] Comment on above: Result Comment: (Positive cutoff 5 ng/ml) Performed By: #### U MICAO, UAX, INDIRA ####[facility] [address] [place] [address] [facility] Director: Mike Bill DO Interpretive Info Assay provides medic al screening only. The absence of expected drug(s) and/or Normal [facility] Comment on above: Result Comment: meta bolite(s) may indicate diluted or adulterated urine, limitations of testing or timing of collection. Testing for legal purposes should be confirmed by another method. To request confirmation of test result, please call the lab within 7 days of sample submission. Performed By: #### U MICAO, UAX, INDIRA ####[facility] [id number] [place] [address] Lab Director: Mike Bill DO Methadone Ql (U) Negative Normal NEG [facility] Comment on above: Result Comment: (Positive cutoff 300 ng/mL) Performed By: #### U MICAO, UAX, INDIRA ####[facility] [address] [place] [address] Lab Director: Mike Bill DO Opiate(s), Ur Negative Normal NEG [facility] Comment on above: Result Comment: (Positive cutoff 300 ng/mL) Performed By: #### U MICAO, UAX, INDIRA ####[facility] Rml1064 [facility] [place] [facility] [place] [address] Lab Director: Mike Bill DO Oxycodone, Urine Negative Normal NEG [facility] Comment on above: Result Comment: (Positive cutoff 100 ng/mL) Performed By: #### U MICAO, UAX, INDIRA ####[facility] Qum[address] [facility] [place] [facility] [place] [address] Lab Director: Mike Bill DO Phencyclidine, Ur Negative Normal NEG [facility] Comment on above: Result Comment: (Positive cutoff 25 ng/mL) Performed By: #### U MICAO, UAX, INDIRA ####[facility] [id number] [facility] [place] [facility] [place] [address] Lab Director: Mike Bill DO ED Note-Physicianon 10-05-19 24 ED Note-Physician [id number] Normal [facility] Ethanolon 10-05-2023 Ethanol percent <0.010 % [facility] Ethanolamine [Mass/Vol] mg/dL NINF - 10 mg/dL [facility] Ethanol Alcoholon 10-05-2023 Ethanol [Mass/Vol] mg/dL Normal <10 [facility] Comment on above: Performed By: #### P T, TROPI, ALCB, CDP, MG, CP, RETCT ####[facility] [address] [place] [address] Lab Director: Mike Bill DO#### PATH ####[address] [address] lab Director: Heladio Lawson MD Ethanol percent <0.010 Normal [facility] Comment on above: Performed By: #### P T, TROPI, ALCB, CDP, MG, CP, RETCT ####[facility] Ahh7148 [facility] [place] [facility] [place] [address] Lab Director: Mike Bill DO#### PATH ####[facility] [place] [address] lab Director: Heladio Lawson MD Magnesiumon 10-05-2023 Magnesium [Mass/Vol] 2.1 mg/dL 1.6 - 2 .6 mg/dL [facility] Magnesium [Mass/Vol] 2.1 mg/dL Normal 1.6-2.[address] [facility] Comment on above: Performed By: #### P T, TROPI, ALCB, CDP, MG, CP, RETCT ####[facility] Tch4708 [facility] [place] [address] lab Director: Mike Bill DO#### PATH ####[id number] [place] [address] Lab Director: Heladio Lawson MD Microscopic Urinalysison Bacteria LM Ql (Urine sed) FEW Abnormal None [facility] Casts LM.LPF (Urine sed) [#/Area] HYALINE Abnormal None /LPF [facility] Casts LM.LPF (Urine sed) [#/Area] 6 TO 9 Abnormal None /LPF [facility] Casts LM.LPF (Urine sed) [#/Area] FINE GRANULAR Abnormal None /LPF [facility] Casts LM.LPF (Urine sed) [#/Area] 10 TO 20 Abnormal None /LPF [facility] Epithelial cells LM.HPF (Urine sed) [#/Area] 10 TO 20 /HPF [facility] Mucus Ql (Urine sed) 1+ [facility] RBC LM.HPF (Urine sed) [#/Area] 3 to 5 Abnormal 0 TO 2 /HPF [facility] WBC LM.HPF (Urine sed) [#/Area] 6 TO 9 Abnormal 0 TO 5 /HPF [facility] No Panel Informationon 10-05 Interpretation and review of laboratory results Abnormal [facility] Radiology Study observation (narrative) [facility] No Panel InformationOrdered By: Brittney Lawson on 10-05-2023 [facility] Work Phone: PTon 10-05-2023 INR Coag (PPP) [Relative time] 1.1 {INR} Normal [facility] Comment on above: Result Comment: Therapeutic Range: Moderate Anticoagulant Intensity: INR = 2.0-3.0 High Anticoagulant Intensity: INR = 2.5-3.5 Performed By: #### P T, TROPI, ALCB, CDP, MG, CP, RETCT ####[facility] Mwa[address] [facility] [place] [address] lab Director: Mike Bill DO#### PATH ####[place] [address] lab Director: Heladio Lawson MD PT Coag (PPP) [Time] 14.5 s Normal 11.8-14.[address] [facility] Comment on above: Performed By: #### P T, TROPI, ALCB, CDP, MG, CP, RETCT ####[facility] Gef[address]42 [facility] [place] [address] lab Director: Mike Bill DO#### PATH ####[address] [address] lab Director: Heladio Lawson MD Portable XR Chest AP single viewon 10-05-2023 Radiology Study observation (narrative) [facility] Cardiomegaly, with m ild pulmonary vascular congestion. [facility] RIS CONSOLIDATED EXAMINATION: ONE XRAY VIEW OF THE CHEST 10/05/2023 7:53 pm COMPARISON: None. HISTORY: ORDERING SYSTEM PROVIDED HISTORY: dizziness, new pacemaker TECHNOLOGIST PROVIDED HISTORY: dizziness, new pacemaker Reason for Exam: dizziness, new pacemaker, and sob FINDINGS: The heart is enlarged. Median sternotomy wires are in place. There is a dual lead left-sided AICD in place. Status post aortic valve replacement. Coronary artery stents in place. There is no focal pulmonary consolidation. There are slightly prominent interstitial markings. No pleural effusion or pneumothorax is identified. No acute osseous abnormality. [facility] Derrick Awad MD - 10/05/2023 EXAMINATION: ONE XRAY VIEW OF THE CHEST 10/05/2023 7:53 pm COMPARISON: None. HISTORY: ORDERING SYSTEM PROVIDED HISTORY: dizziness, new pacemaker TECHNOLOGIST PROVIDED HISTORY: dizziness, new pacemaker Reason for Exam: dizziness, new pacemaker, and sob FINDINGS: The heart is enlarged. Median sternotomy wires are in place. There is a dual lead left-sided AICD in place. Status post aortic valve replacement. Coronary artery stents in place. There is no focal pulmonary consolidation. There are slightly prominent interstitial markings. No pleural effusion or pneumothorax is identified. No acute osseous abnormality. IMPRESSION: Cardiomegaly, with mild pulmonary vascular congestion. [facility] Portable XR Chest AP single viewOrdered By: Derrick Zapien on 10-05-2023 [facility] Work Phone: Protime-INRon 10-05-2023 INR Coag (PPP) [Relative time] 1.1 {INR} [facility] Comment on above: Therapeutic Range: Moderate Anticoagulant Intensity: INR = 2.0-3.0 High Anticoagulant Intensity: INR = 2.5-3.5 PT Coag (PPP) [Time] 14.5 s [facility] Retic Counton 10-05-2023 Absolute Retic 0.069 M/uL Normal 0.0245-0.0 98 [facility] Comment on above: Performed By: #### P T, TROPI, ALCB, CDP, MG, CP, RETCT ####[facility] [address] [place] [address] Lab Director: Mike Bill DO#### PATH ####[address] [place] [address] Lab Director: Heladio Lawson MD Retic Count 1.2 % Normal 0.5-2.0 [facility] Comment on above: Performed By: #### P T, TROPI, ALCB, CDP, MG, CP, RETCT ####[facility] [address] [place] [address] lab Director: Mike Bill DO#### PATH ####[facility] [address] [place], [place] [id number] lab Director: Heladio Lawson MD Reticulocyteson 10-05-2023 Reticulocytes (Bld) [#/Vol] 0.069 10*3/uL [facility] Reticulocytes/100 RBC (Bld) 1.2 % 0.5 - 2.0 % [facility] Surgical Pathology Reporton 10-05-2023 Surgical Pathology Report (NOTE) [id number] [facility] CONSULTING PATHOLOGISTS [facility] ANATOMIC PATHOLOGY [address] [place] [address]. [place], [place] [address] SURGICAL PATHOLOGY CONSULTATION Patient Name: ESSENCE VINCENT MR#: [id number] Specimen #[id number] Procedures/Addenda PERIPHERAL BLOOD REPORT Date Ordered: 10/06/2023 Status: Signed Out Date Complete: 10/06/2023 By: Elenita Carr M.D. Date Reported: 10/06/2023 INTERPRETATION Peripheral blood: - Marked microcytic hypochromic anemia with increased RBC count and moderate anisopoikilocytosis. - White blood cells with normal morphology. No blasts. - Platelets with unremarkable morphology. - Red blood cell findings could indicated iron deficiency anemia or hemoglobinopathy such as beta thalassemia. Correlation with iron studies is recommended. If clinically indicated, hemoglobin electrophoresis could be considered to assess for hemoglobinopathy. RESULTS-COMMENTS PERIPHERAL BLOOD STUDY CBC: Please see the electronic health record for CBC parameters ([id number], 10/05/2023, TIME UNKNOWN). PLATELETS: Platelets show normal morphology. LEUKOCYTES: White blood cells show normal morphology. No atypical lymphocytes. No dysplasia. There are no blasts. ERYTHROCYTES: Microcytic hypochromic anemia with moderate anisopoikilocytosis and elevated RBC count. Note: The electronic health record is reviewed. Elenita Carr M.D. Source: A: Peripheral Blood Normal [facility] Troponinon 10-05-2023 Interpretation and review of laboratory results Abnormal [facility] Troponin I.cardiac High sensitivity method [Mass/Vol] 24 ng/L High 0 - 14 ng/L [facility] Comment on above: High Sensitivity Tro ponin values cannot be compared with other Troponin methodologies. Troponin I.cardiac High sensitivity method [Mass/Vol] 25 ng/L High 0 - 14 ng/L [facility] Comment on above: High Sensitivity Tro ponin values cannot be compared with other Troponin methodologies. Troponin, High Sens 24 ng/L High 0-14 [facility] Comment on above: Result Comment: High Sensitivity Troponin values cannot be compared with other Troponin methodologies. Performed By: #### P T, TROPI, ALCB, CDP, MG, CP, RETCT ####[facility] [address] [place] [address] [facility] Director: Mike Bill DO#### PATH ####[address] [address] Lab Director: Heladio Lawson MD [facility] UA w/Reflex Cultureon 2023 Bilirubin, SemiQt,Ur Negative Normal NEG [facility] Comment on above: Performed By: #### U MICAO, UAX, INDIRA ####[facility] [address] [place] [address] Lab Director: Mike Bill DO Blood, Urine TRACE Abnormal NEG [facility] Comment on above: Performed By: #### U MICAO, UAX, INDIRA ####[facility] [address] [place] [address] Lab Director: Mike Bill DO Clarity (U) Clear Normal CLEAR [facility] Comment on above: Performed By: #### U MICAO, UAX, INDIRA ####[facility] [address] [place] [address], [place] [address] Lab Director: Mike Bill DO Color (U) Dark Yellow Abnormal YEL [facility] Comment on above: Performed By: #### U MICAO, UAX, INDIRA ####[facility] Qmd2041 [facility] [place] [address] Lab Director: Mike Bill DO Glucose Ql (U) Negative Normal NEG [facility] Comment on above: Performed By: #### U MICAO, UAX, INDIRA ####[facility] [address] [place] [address].[place] [address] Lab Director: Mike Bill DO Ketones Ql (U) TRACE Abnormal NEG [facility] Comment on above: Performed By: #### U MICAO, UAX, INDIRA ####[facility] [address] [place] [address].[place] [address] Lab Director: Mike Bill DO Leukocyte esterase Test strip Ql (U) TRACE Abnormal NEG [facility] Comment on above: Performed By: #### U MICAO, UAX, INDIRA ####[facility] [address] [place] [address].[place] [address] Lab Director: Mike Bill DO Nitrite,Ur Negative Normal NEG [facility] Comment on above: Performed By: #### U MICAO, UAX, INDIRA ####[facility] [address] [place] [address].[place] [address] Lab Director: Mike Bill DO PH,Ur 6.0 Normal 5.0-8.0 [facility] Comment on above: Performed By: #### U MICAO, UAX, INDIRA ####[facility] [address] [place] [address] Lab Director: Mike Bill DO Protein Ql (U) 1+ mg/dL Abnormal NEG [facility] Comment on above: Performed By: #### U MICAO, UAX, INDIRA ####[facility] Wnm8128 [facility] [place] [address] [facility] Director: Mike Bill DO Spec. [place],Ur 1.018 Normal 1.000-1.03 0 [facility] Comment on above: Performed By: #### U MICAO, UAX, INDIRA ####[facility] Ied3411 [facility] [place] [address] lab Director: Mike Bill DO Urobilinogen,Ur Normal Normal 0.0-1.0 [facility] Comment on above: Performed By: #### U MICAO, UAX, INDIRA ####[facility] [address] [place] [address] lab Director: Mike Bill DO Urinalysis with Reflex to Cu ltureon 10-05-2023 Bilirubin Ql (U) Negative NEGATIVE [facility] Clarity (U) Clear Clear [facility] Color (U) Dark Yellow Abnormal Yellow [facility] Glucose Test strip (U) [Mass/Vol] Negative NEGATIVE mg/dL [facility] [employer] Hemoglobin Auto test strip Ql (U) TRACE Abnormal NEGATIVE [facility] Ketones (U) [Mass/Vol] TRACE Abnormal NEGAT ZULMA mg/dL [facility] Leukocyte esterase Test strip Ql (U) TRACE Abnormal NEGATIVE [facility] [employer] Nitrite Ql (U) Negative NEGATIVE [facility] pH (U) 6.0 [pH] 5.0 - 8.[address] [facility] [employer] Protein (U) [Mass/Vol] 1+ Abnormal NEGAT ZULMA mg/dL [facility] Specific gravity (U) [Rel density] 1.018 1.000 - 1.030 [facility] Urobilinogen Qn (U) Normal 0.0 - 1. 0 EU/dL [facility] [employer] Urinalysis,Microon 4 Bacteria FEW Abnormal NONE [facility] Comment on above: Performed By: #### U MICAO, UAX, INDIRA ####[facility] N[address]1799 [place], [place] [id number])[phone] Director: Mike Bill DO Casts HYALINE Abnormal NONE [facility] Comment on above: Result Comment: 6 TO 9 FINE GRANULAR 10 TO 20 Performed By: #### U MICAO, UAX, INDIRA ####[facility] [address] [place] [address] [phone] Director: Mike Bill DO Epithelial cells LM Ql (Urine sed) 10 TO 20 Normal [facility] Comment on above: Performed By: #### U MICAO, UAX, INDIRA ####[facility] [address] [place] [address] [phone] Director: Mike Bill DO Mucus Strands 1+ Normal [facility] Comment on above: Performed By: #### U MICAO, UAX, INDIRA ####[facility] P[address] [place], [place] [phone] Director: Mike Bill DO Urine RBC's 3 to 5 Abnormal 2 [facility] Comment on above: Performed By: #### U MICAO, UAX, INDIRA ####[facility] [address] [place] [address] [phone] Director: Mike Bill DO Urine WBC's 6 TO 9 Abnormal 5 [facility] Comment on above: Performed By: #### U MICAO, UAX, INDIRA ####[facility] [address] [place] [address] [phone] Director: Mike Bill DO Urine Drug Screenon 10-05-19 24 Amphetamines Ql (U) Negative NEGATIVE [facility] Comment on above: (Positive cutoff 1000 ng/mL) Barbiturates Screen Ql (U) Positive Abnormal NEGATIVE [facility] Comment on above: (Positive cutoff 200 ng/mL) Benzodiazepines Ql (U) Negative NEGATIVE [facility] Comment on above: (Positive cutoff 200 ng/mL) Cannabinoids Screen Ql (U) Positive Abnormal NEGATIVE [facility] Comment on above: (Positive cutoff 50 ng/mL) Cocaine Ql (U) Negative NEGATIVE [facility] Comment on above: (Positive cutoff 300 ng/mL) fentaNYL Ql (U) Negative NEGATIVE [facility] Comment on above: (Positive cutoff 5 ng/ml) Methadone Ql (U) Negative NEGATIVE [facility] Comment on above: (Positive cutoff 300 ng/mL) Opiates Screen Ql (U) Negative NEGATIVE [facility] Comment on above: (Positive cutoff 300 ng/mL) oxyCODONE Ql (U) Negative NEGATIVE [facility] Comment on above: (Positive cutoff 100 ng/mL) Phencyclidine Ql (U) Negative NEGATIVE [facility] Comment on above: (Positive cutoff 25 ng/mL) Test Information Assay provides medic al screening only. The absence of expected drug(s) and/or metabolite(s) may indicate diluted or adulterated urine, limitations of testing or timing of collection. [facility] Comment on above: Testing for legal pu rposes should be confirmed by another method. To request confirmation of test result, please call the lab within 7 days of sample submission. XR CHEST PORTABLEon 10-05-19 XR CHEST PORTABLE EXAMINATION: ONE XRAY VIEW OF THE CHEST 10/05/2023 7:53 pm COMPARISON: None. HISTORY: ORDERING SYSTEM PROVIDED HISTORY: dizziness, new pacemaker TECHNOLOGIST PROVIDED HISTORY: dizziness, new pacemaker Reason for Exam: dizziness, new pacemaker, and sob FINDINGS: The heart is enlarged. Median sternotomy wires are in place. There is a dual lead left-sided AICD in place. Status post aortic valve replacement. Coronary artery stents in place. There is no focal pulmonary consolidation. There are slightly prominent interstitial markings. No pleural effusion or pneumothorax is identified. No acute osseous abnormality. IMPRESSION: Cardiomegaly, with mild pulmonary vascular congestion. Interpreted by: Derrick Zapien MD Signed by: Derrick Zapien MD 10/05/23 Final result Normal [facility] Basic metabolic 2000 panelon 09-29-2023 Anion gap [Moles/Vol] 16 mmol/L 10 - 2 0 mmol/L [facility] Anion gap [Moles/Vol] 16 mmol/L Normal 10-20 [facility] Comment on above: Performed By: #### 2 4321-2 #### SHAQUILLE GOLDMAN ([id number]) [facility] ([facility]) [address] [place] [address] Calcium [Mass/Vol] 9.3 mg/dL 8.6 - 10. 3 mg/dL [facility] Calcium [Mass/Vol] 9.3 mg/dL Normal 8.6-10.3 [facility] Comment on above: Performed By: #### 2 4321-2 #### SHAQUILLE GOLDMAN ([id number]) [facility] ([facility]) [address] [place] [address] Chloride [Moles/Vol] 100 mmol/L 98 - 10 7 mmol/L [facility] Chloride [Moles/Vol] 100 mmol/L Normal 98-107 [facility] Comment on above: Performed By: #### 2 1-2 #### SHAQUILLE GOLDMAN ([id number]) [facility] ([facility]) [address] [place] [address] CO2 [Moles/Vol] 29 mmol/L 21 - 32 mmol/L [facility] CO2 [Moles/Vol] 29 mmol/L Normal 21-32 [facility] Comment on above: Performed By: #### 2 4321-2 #### SHAQUILLE GOLDMAN ([id number]) [facility] ([facility]) [address] [place] [address] Creatinine [Mass/Vol] 1.16 mg/dL High 0.50 - 1.05 mg/dL [facility] Creatinine [Mass/Vol] 1.16 mg/dL High 0.50-1.05 [facility] Comment on above: Performed By: #### 2 4321-2 #### SHAQUILLE GOLDMAN ([id number]) [facility] ([facility]) [address] [place] [address] GFR/1.73 sq M.predicted among non-blacks MDRD (S/P/Bld) [Vol rate/Area] 56 mL/min/{1.73_m2} Low - PINF [facility] Comment on above: Calculations of yovanny mated GFR are performed using the 2020 CKD-EPI Study Refit equation without the race variable for the IDMS-Traceable creatinine methods. https://jasn.asnjournals.org/content/early/ASN.70150 05819 Glomerular filtration rate/1.73 sq M.predicted 56 mL/min/1.73m*2 Low >60 [facility] Comment on above: Result Comment: Calc ulations of estimated GFR are performed using the 2020 CKD-EPI Study Refit equation without the race variable for the IDMS-Traceable creatinine methods. https://jasn.asnjournals.org/content/early/ASN.31014 77814 Performed By: #### 2 4321-2 #### SHAQUILLE GOLDMAN ([id number]) [facility] ([facility]) [address] [place] [address] Glucose [Mass/Vol] 83 mg/dL 74 - 99 mg/dL [facility] Glucose [Mass/Vol] 83 mg/dL Normal 74-99 [facility] Comment on above: Performed By: #### 2 4321-2 #### SHAQUILLE GOLDMAN ([id number]) [facility] ([facility]) [address] [place] [address] Potassium [Moles/Vol] 3.7 mmol/L 3.5 - 5.3 mmol/L [facility] Potassium [Moles/Vol] 3.7 mmol/L Normal 3.5-5.3 [facility] Comment on above: Performed By: #### 2 4321-2 #### SHAQUILLE GOLDMAN ([id number]) [facility] ([facility]) [address] [place] [address]703 Sodium [Moles/Vol] 141 mmol/L 136 - 145 mmol/L [facility] Sodium [Moles/Vol] 141 mmol/L Normal 136-145 [facility] Comment on above: Performed By: #### 2 4321-2 #### SHAQUILLE GOLDMAN ([id number]) [facility] ([facility]) [address] [place] [address] Urea nitrogen [Mass/Vol] 33 mg/dL High 6 - 23 mg/dL [facility] Urea nitrogen [Mass/Vol] 33 mg/dL High 6-23 [facility] Comment on above: Performed By: #### 2 4321-2 #### SHAQUILLE GOLDMAN ([id number]) [facility] ([facility]) [address] [place] [address] CBC panel Auto (Bld)on 09-29 Erythrocyte distribution width (RBC) [Ratio] 23.8 % High 11.5 - 14.5 % [facility] Erythrocyte distribution width (RBC) [Ratio] 23.8 % High 11.5-14.5 [facility] Comment on above: Performed By: #### 5 8410-2 #### SHAQUILLE GOLDMAN ([id number]) [facility] ([facility]) [address] [place] [address] Hematocrit (Bld) [Volume fraction] 35.4 % Low 36.0 - 46.0 % [facility] Hematocrit (Bld) [Volume fraction] 35.4 % Low 36.0-46.0 [facility] Comment on above: Performed By: #### 5 8410-2 #### SHAQUILLE GOLDMAN ([id number]) [facility] ([facility]) [address] [place] [address]843 Hemoglobin (Bld) [Mass/Vol] 9.8 g/dL Low 12.0 - 16.0 g/dL [facility] Hemoglobin (Bld) [Mass/Vol] 9.8 g/dL Low 12.0-16.0 [facility] Comment on above: Performed By: #### 5 8410-2 #### SHAQUILLE GOLDMAN ([id number]) [facility] ([facility]) [address] [place] [address] 18813 MCH (RBC) [Entitic mass] 17.9 pg Low 26.0 - 34.0 pg [facility] MCH (RBC) [Entitic mass] 17.9 pg Low 26.0-34.0 [facility] Comment on above: Performed By: #### 5 8410-2 #### SHAQUILLE GOLDMAN ([id number]) [facility] ([facility]) [address] [place] [address] 51703 MCHC (RBC) [Mass/Vol] 27.7 g/dL Low 32.0 - 36.0 g/dL [facility] MCHC (RBC) [Mass/Vol] 27.7 g/dL Low 32.0-36.0 [facility] Comment on above: Performed By: #### 5 8410-2 #### SHAQUILLE GOLDMAN ([id number]) [facility] ([facility]) [address] [place] [address] 37218 MCV (RBC) [Entitic vol] 65 fL Low 80 - 100 fL [facility] MCV (RBC) [Entitic vol] 65 fL Low 80-100 [facility] Comment on above: Performed By: #### 5 8410-2 #### SHAQUILLE GOLDMAN ([id number]) [facility] ([facility]) [address] [place] [address] 84495 Nucleated RBC/100 WBC (Bld) [Ratio] 0.0 % [facility] Nucleated RBC/100 WBC (Bld) [Ratio] 0.0 /100 WBCs Normal 0.0-0.0 [facility] Comment on above: Performed By: #### 5 8410-2 #### SHAQUILLE GOLDMAN ([id number]) [facility] ([facility]) [address] [place] [address] 88004 Platelets (Bld) [#/Vol] 303 10*3/uL [facility] Platelets (Bld) [#/Vol] 303 x10*3/uL Normal 150-450 [facility] Comment on above: Performed By: #### 5 8410-2 #### SHAQUILLE GOLDMAN ([id number]) [facility] (EMC) [address] [place] [address] 18331 RBC (Bld) [#/Vol] 5.47 10*6/uL High [facility] RBC (Bld) [#/Vol] 5.47 x10*6/uL High 4.00-5.20 [facility] Comment on above: Performed By: #### 5 8410-2 #### SHAQUILLE GOLDMAN ([id number]) [facility] (EM[facility]) [address] [place] [address] 76864 WBC (Bld) [#/Vol] 8.7 10*3/uL [facility] WBC (Bld) [#/Vol] 8.7 x10*3/uL Normal 4.4-11.3 [facility] Comment on above: Performed By: #### 5 8410-2 #### SHAQUILLE GOLDMAN ([id number]) [facility] ([facility]) [address] [place] [address] 74329 ECG 12-LEADon 09-29-2023 ECG 12-LEAD Ventricular Rate 80 Atrial Rate 79 QRS Duration 240 Q-T Interval 640 QTC Calculation(Bazett) 738 R [place] -75 T [place] 92 QRS Count 13 Q Onset 160 T Offset 480 QTC [place] 705 Diagnosis AV dual-paced rhythm Abnormal ECG When compared with ECG of 21-JAN-2022 17:39, No significant change was found Confirmed by Fly Sheldon ([id number]) on 09/29/2023 3:03:21 PM Normal [facility] Electrophysiology studyon [facility] Work Phone: No Panel Informationon 09-29 Extra Tube Hold for add-ons. [facility] Comment on above: Auto resulted. Interpretation and review of laboratory results Abnormal [facility] PT and aPTT panel Coag (PPP) on 09-29-2023 aPTT Coag (PPP) [Time] 25 s Low Un [facility] aPTT Coag (PPP) [Time] 25 s Low 27-38 Un [facility] Comment on above: Order Comment: The A PTT is no longer used for monitoring Unfractionated Heparin Therapy. For monitoring Heparin Therapy, use the Heparin Assay. Performed By: #### 3 4529-8 #### SHAQUILLE GOLDMAN ([id number]) [facility] ([facility]) [address] [place] [address] INR Coag (PPP) [Relative time] 1.0 {INR} 0.9 - 1.1 [facility] INR Coag (PPP) [Relative time] 1.0 Normal 0.9-1.1 [facility] Comment on above: Order Comment: The A PTT is no longer used for monitoring Unfractionated Heparin Therapy. For monitoring Heparin Therapy, use the Heparin Assay. Performed By: #### 3 4529-8 #### SHAQUILLE GOLDMAN ([id number]) [facility] ([facility] [address] [place] [address] PT Coag (PPP) [Time] 11.1 s [facility] PT Coag (PPP) [Time] 11.1 s Normal 9.8-12.8 [facility] Comment on above: Order Comment: The A PTT is no longer used for monitoring Unfractionated Heparin Therapy. For monitoring Heparin Therapy, use the Heparin Assay. Performed By: #### 3 4529-8 #### SHAQUILLE GOLDMAN ([id number]) [facility] (EM) [address] [place] [address] The APTT is no longe r used for monitoring Unfractionated Heparin Therapy. For monitoring Heparin Therapy, use the Heparin Assay. [facility] Cardiac Device Check - In Cl inicon 09-02-2023 Radiology Study observation (narrative) [facility] Work Phone: Cardiac Device Check - In Cl inicOrdered By: Margareth Nunez on 09-02-2023 [facility] Work Phone: Franck 08-03-2023 CNPN Telephone (EPSOR) ----- ESSENCE VINCENT ([id number]) 1970 F Date Time Provider Department 08/03/23 DAVID OSEI [facility] During your visit today, we recorded [...] Osei MD Procedure Requested: ICD change CPT: 01141 Multi Lead Date of Last HANDP? N/A Indications / Dx for Procedure: VT Procedure Time Frame: 1 month Estimated length of case: 1 HOUR Device Company: [employer] Patient: No Type of Bed: [...] Signed Left a message for daughter, Lizz (POFranco), offering the date of 09/30/23 for procedure [...] possible to confirm date. Number provided. Lakisha Mcneli RN 08/24/2023 1:34 PM Signed Again tried to contact patient, S.O., AND POFranco with same results as previous. Message left [...] jittery Date Reviewed: 11/14/2021 Reviewed by: Cyndi Hairston, NAYLA - Fully Assessed Reason for Visit: Schedule Surgery [1330] Cmt: EPS- LEASING ASSISTANT-D Change Out Prescriptions as of 08/27/2023 - [...] by: PATIENT Jameel Mcmahon, PharmD asa LD 07-04- Problem List As Of Date 08/03/2023 Noted Resolved Urinary tract infection of [P39.3] 07/26/2004 07/23/2020 Fitting and adjustment of orthopedic device [Z4*04/29/2010 07/23/2020 CAD (coronary artery disease) [I25.10] Remote STEMI (1998) [I21.3] 07/23/2020 Cardiogenic shock (HCC) [R57.0] 07/23/2020 Heart failure, systolic, acute on chronic (HCC)* 07/23/2020 Heart failure, systolic and diastolic, chronic * MR (mitral regurgitation) [I34.0] 07/16/2012 Pulmonary hypertension [I27.20] Dual chamber LEASING ASSISTANT-D [Z95.810] 07/23/2020 Primary hypertension [I10] Nicotine use disorder [F17.200] Exercise-induced asthma [J45.990] Anemia [D64.9] 10/29/2011 07/23/2020 H/o GERD [K21.9] 07/23/2020 Migraines [G43.909] H/o Depression/Anxiety/Sleep disturbance [F32.* Preop testing [Z01.818] 07/08/2012 07/23/2020 SUMMARY (more content not included)... Normal [facility] Franck 07-28-2023 BLOSSOM Telephone (CARDMN) ----- HARJITESSENCE ([id number]) 1970 F Date Time Provider Department 07/28/23 [...] phone number or address. Called number for Tanner (listed as spouse) that was found in [...] HCL (PF)) 10/13/2018 5 - Intolerance Comments: nikolas Date Reviewed: 11/14/2021 Reviewed by: Cyndi Hairston [...] [I34.0] 07/16/2012 Pulmonary hypertension [I27.20] Dual chamber LEASING ASSISTANT-D [Z95.810] 07/23/2020 Primary hypertension [I10] Nicotine use disorder [F17.200] Exercise-induced asthma [J45.990] Anemia [D64.9] 10/29/2011 07/23/2020 H/o GERD [K21.9] 07/23/2020 Migraines [G43.909] H/o Depression/Anxiety/Sleep disturbance [F32.* Preop testing [Z01.818] 07/08/2012 07/23/2020 SUMMARY [V999.95] 07/11/2012 07/23/2020 Pulmonary hypertension, moderate to severe (HCC*2012 Other acute postoperative pain [G89.18] 07/13/2012 07/16/2012 Pulmonary insuff [UQB8495] 07/13/2012 07/23/2020 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 [...] Status:Closed by MARIA GLOVER on 07/28/23 Normal [facility] ICD REMOTE CHECKon 3 AV Delay Adaptive Paced Minimum (ms) 350 ms [facility] AV Delay Adaptive Rate Maximum (bpm) 90 {beats}/min [facility] AV Delay Adaptive Rate Minimum (bpm) 75 {beats}/min [facility] AV Delay Adaptive Sensed Minimum (ms) 250 ms [facility] AV Delay Adaptive Status ENABLED [facility] AV Delay Paced (ms) [address] [facility] AV Delay Sensed (ms) 70 ms [facility] Battery Voltage 2.72 V [facility] Scott RA Pacing Amplitude (volts) 2 V [facility] Scott RA Pacing Polarity BI [facility] Scott RA Pacing Pulse Width (ms) 0.4 ms [facility] Scott RA Sensing Amplitude (mvolts) 0.3 mV [facility] Scott RA Sensing Blanking Period (ms) 150 ms [facility] Scott RA Sensing Polarity BI [facility] Scott RA Sensing Refractory Period (ms) 250 ms [facility] Scott RV Pacing Amplitude (volts) 2.25 V [facility] Scott RV Pacing Polarity BI [facility] Scott RV Pacing Pulse Width (ms) 0.4 ms [facility] Scott RV Sensing Amplitude (mvolts) 0.3 mV [facility] Scott RV Sensing Blanking Period (ms) 200 ms [facility] Scott RV Sensing Polarity BI [facility] Detection Configuration (Vent) 2 - Zone [facility] FastVT_Detection Interval 450 ms [facility] FastVT_Therapy Configuration 2 ATP(s) + 0 Shock(s) [facility] ICD AFIB DetectionStatus DISABLED [facility] ICD ATAF DetectionInterval ms 450 ms [facility] ICD ATAF DetectionStatus ENABLED [facility] ICD ATAF TherapyConfiguration 2 ATP(s) + 0 Shock(s) [facility] ICD FastVT DetectionStatus ENABLED [facility] ICD-ADLRATE_BPM 85 {beats}/min [facility] ICD-AMS EPISODES 133 {beats}/min [facility] ICD-ATP Episodes (Vent) 0 [facility] ICD-ATRIALFIBRILLATION 535 Cl [facility] ICD-ATRIALTACHYCARDIA 535 [facility] ICD-ATRIALTACHYCARDIA 18 [facility] ICD-ATRIALTACHYCARDIA 9 [facility] ICD-Counters Cleared Date 09/23/2016 [facility] ICD-Device Mfg MDT [facility] ICD-Fast Ventricular Tachycardia 9 [facility] ICD-LEADIMPEDANCEATRIA L 342 ohm [facility] ICD-Percent Pacing (Atrial) 76.76 % [facility] ICD-Percent Pacing (Vent) 95.69 % [facility] ICD-PMT Intervention ENABLED [facility] ICD-PVC Intervention ENABLED [facility] ICD-Rate Modulation Acceleration Reaction 30 s [facility] ICD-Rate Modulation Deceleration Exercise [facility] ICD-Rate Modulation [place] 3 [facility] ICD-Rate Modulation Threshold MediumHigh [facility] ICD-Shocks Aborted (Vent) 0 [facility] [id number] 0 [facility] ICD-SHOCKSABORTED [address] [facility] ICD-SHOCKSDELIVEREDVEN TRICULAR 0 [facility] ICD-Ventricular Fibrillation 0 [facility] Implant Date 07/03/2005 [facility] Implant Date 11/30/2002 [facility] Lead Impedance (LV) [address] [facility] Lead Impedance (RV) [address] [facility] Lead Impedance High Voltage 59 ohm [facility] Lead1 Mfg MDT [facility] Lead2 Mfg MDT [facility] Lead3 Mfg GDT [facility] Location LV [facility] Location RA [facility] Location RV [facility] Lower Rate (bpm) 80 {beats}/min [facility] LV PACING % 0 % [facility] Max Sensor Rate (bpm) 90 {beats}/min [facility] MDT_PROG_TACHY_ZONE_DE TECTIONS_STATUS ENABLED [facility] Model [id number] Viva XT LEASING ASSISTANT-D [facility] Model 4196 Attain Ability MRI SureScan [facility] Model 5076 CapSureFix Novus [facility] Model 0144 [employer]otak Endurance Rx [facility] Pacing Mode DDDR [facility] Serial Number [id number] [facility] Serial Number [id number] [facility] Serial Number [id number] [facility] Serial Number [id number] [facility] Test Charge Energy 18 J [facility] Test Charge Time 5.525 [facility] Therapy Status (Vent) Enabled [facility] Thresh RA Capture Amplitude (volts) 0.625 V [facility] Thresh RA Capture Duration (ms) 0.4 ms [facility] Thresh RA Sensing Amplitude (mvolts) 1.625 mV [facility] Thresh RV Capture Amplitude (VOLTS) 1 V [facility] Thresh RV Capture Duration (MS) 0.4 ms [facility] Thresh RV Sensing Amplitude (MVOLTS) 11.625 mV [facility] Tracking Rate (bpm) 90 {beats}/min [facility] VF Zone Detection Interval 450 ms [facility] VF Zone Therapy Configuration 2 ATP(s) + 0 Shock(s) [facility] No Panel Informationon 07-28 BLANK _ [facility] ICD-ATRIALTACHYCARDIA 0 [facility] ICD-Fast Ventricular Tachycardia 0 [facility] Implant Date 09/23/2016 [facility] ED Note-Physicianon 07-05-20 ED Note-Physician [id number] Normal [facility] ED Note-Physician [id number] Normal [facility] ED Note-Physician [id number] Normal [facility] Physician Referralon 023 Physician Referral [id number]:12 7 Normal [facility] ICD REMOTE CHECKon 3 AV Delay Adaptive Paced Minimum (ms) 350 ms [facility] AV Delay Adaptive Rate Maximum (bpm) 90 {beats}/min [facility] AV Delay Adaptive Rate Minimum (bpm) 75 {beats}/min [facility] AV Delay Adaptive Sensed Minimum (ms) 250 ms [facility] AV Delay Adaptive Status ENABLED [facility] AV Delay Paced (ms) [address] [facility] AV Delay Sensed (ms) 70 ms [facility] Battery Voltage 2.77 V [facility] Scott RA Pacing Amplitude (volts) 2 V [facility] Scott RA Pacing Polarity BI [facility] Scott RA Pacing Pulse Width (ms) 0.4 ms [facility] Scott RA Sensing Amplitude (mvolts) 0.3 mV [facility] Scott RA Sensing Blanking Period (ms) 150 ms [facility] Scott RA Sensing Polarity BI [facility] Scott RA Sensing Refractory Period (ms) 250 ms [facility] Scott RV Pacing Amplitude (volts) 2.5 V [facility] Scott RV Pacing Polarity BI [facility] Scott RV Pacing Pulse Width (ms) 0.4 ms [facility] Scott RV Sensing Amplitude (mvolts) 0.3 mV [facility] Scott RV Sensing Blanking Period (ms) 200 ms [facility] Scott RV Sensing Polarity BI [facility] Detection Configuration (Vent) 2 - Zone [facility] FastVT_Detection Interval 450 ms [facility] FastVT_Therapy Configuration 2 ATP(s) + 0 Shock(s) [facility] ICD AFIB DetectionStatus DISABLED [facility] ICD ATAF DetectionInterval ms 450 ms [facility] ICD ATAF DetectionStatus ENABLED [facility] ICD ATAF TherapyConfiguration 2 ATP(s) + 0 Shock(s) [facility] ICD FastVT DetectionStatus ENABLED [facility] ICD-ADLRATE_BPM 85 {beats}/min [facility] ICD-AMS EPISODES 133 {beats}/min [facility] ICD-ATP Episodes (Vent) 0 [facility] ICD-ATRIALFIBRILLATION 10 Cl [facility] ICD-ATRIALTACHYCARDIA 10 [facility] ICD-Counters Cleared Date 09/23/2016 [facility] ICD-Device Mfg MDT [facility] ICD-LEADIMPEDANCEATRIA L 361 ohm [facility] ICD-Percent Pacing (Atrial) 50.68 % [facility] ICD-Percent Pacing (Vent) 87.63 % [facility] ICD-PMT Intervention ENABLED [facility] ICD-PVC Intervention ENABLED [facility] ICD-Rate Modulation Acceleration Reaction 30 s [facility] ICD-Rate Modulation Deceleration Exercise [facility] ICD-Rate Modulation [place] 3 [facility] ICD-Rate Modulation Threshold MediumHigh [facility] ICD-Shocks Aborted (Vent) 0 [facility] [id number] 0 [facility] ICD-SHOCKSABORTED [address] [facility] ICD-SHOCKSDELIVEREDVEN TRICULAR 0 [facility] ICD-Ventricular Fibrillation 0 [facility] Implant Date 07/03/2005 [facility] Implant Date 11/30/2002 [facility] Lead Impedance (LV) [address] [facility] Lead Impedance (RV) [address] [facility] Lead Impedance High Voltage 61 ohm [facility] Lead1 Mfg MDT [facility] Lead2 Mfg MDT [facility] Lead3 Mfg GDT [facility] Location LV [facility] Location RA [facility] Location RV [facility] Lower Rate (bpm) 80 {beats}/min [facility] LV PACING % 0 % [facility] Max Sensor Rate (bpm) 90 {beats}/min [facility] MDT_PROG_TACHY_ZONE_DE TECTIONS_STATUS ENABLED [facility] Model [id number] Viva XT LEASING ASSISTANT-D [facility] Model 4196 Attain Ability MRI SureScan [facility] Model 5076 CapSureFix Novus [facility] Model 0144 Endotak Endurance Rx [facility] Pacing Mode DDDR [facility] Serial Number [id number] [facility] Serial Number [id number] [facility] Serial Number [id number] [facility] Serial Number [id number] [facility] Test Charge Energy 18 J [facility] Test Charge Time 5.145 [facility] Therapy Status (Vent) Enabled [facility] Thresh RA Capture Amplitude (volts) 0.625 V [facility] Thresh RA Capture Duration (ms) 0.4 ms [facility] Thresh RA Sensing Amplitude (mvolts) 2.875 mV [facility] Thresh RV Capture Amplitude (VOLTS) 1 V [facility] Thresh RV Capture Duration (MS) 0.4 ms [facility] Thresh RV Sensing Amplitude (MVOLTS) 6.875 mV [facility] Tracking Rate (bpm) 90 {beats}/min [facility] VF Zone Detection Interval 450 ms [facility] VF Zone Therapy Configuration 2 ATP(s) + 0 Shock(s) [facility] No Panel Informationon 05-06 BLANK _ [facility] ICD-ATRIALTACHYCARDIA 0 [facility] ICD-Fast Ventricular Tachycardia 0 [facility] Implant Date 09/23/2016 [facility] ICD REMOTE CHECKon 3 AV Delay Adaptive Paced Minimum (ms) 350 ms [facility] AV Delay Adaptive Rate Maximum (bpm) 90 {beats}/min [facility] AV Delay Adaptive Rate Minimum (bpm) 75 {beats}/min [facility] AV Delay Adaptive Sensed Minimum (ms) 250 ms [facility] AV Delay Adaptive Status ENABLED [facility] AV Delay Paced (ms) [address] [facility] AV Delay Sensed (ms) 70 ms [facility] Battery Voltage 2.77 V [facility] Scott RA Pacing Amplitude (volts) 2 V [facility] Scott RA Pacing Polarity BI [facility] Scott RA Pacing Pulse Width (ms) 0.4 ms [facility] Scott RA Sensing Amplitude (mvolts) 0.3 mV [facility] Scott RA Sensing Blanking Period (ms) 150 ms [facility] Scott RA Sensing Polarity BI [facility] Scott RA Sensing Refractory Period (ms) 250 ms [facility] Scott RV Pacing Amplitude (volts) 2.75 V [facility] Scott RV Pacing Polarity BI [facility] Scott RV Pacing Pulse Width (ms) 0.4 ms [facility] Scott RV Sensing Amplitude (mvolts) 0.3 mV [facility] Scott RV Sensing Blanking Period (ms) 200 ms [facility] Scott RV Sensing Polarity BI [facility] Detection Configuration (Vent) 2 - Zone [facility] FastVT_Detection Interval 450 ms [facility] FastVT_Therapy Configuration 2 ATP(s) + 0 Shock(s) [facility] ICD AFIB DetectionStatus DISABLED [facility] ICD ATAF DetectionInterval ms 450 ms [facility] ICD ATAF DetectionStatus ENABLED [facility] ICD ATAF TherapyConfiguration 2 ATP(s) + 0 Shock(s) [facility] ICD FastVT DetectionStatus ENABLED [facility] ICD-ADLRATE_BPM 85 {beats}/min [facility] ICD-AMS EPISODES 133 {beats}/min [facility] ICD-ATP Episodes (Vent) 0 [facility] ICD-ATRIALFIBRILLATION 4 Cl [facility] ICD-ATRIALTACHYCARDIA 4 [facility] ICD-Counters Cleared Date 09/23/2016 [facility] ICD-Device Mfg MDT [facility] ICD-LEADIMPEDANCEATRIA L 342 ohm [facility] ICD-Percent Pacing (Atrial) 46.68 % [facility] ICD-Percent Pacing (Vent) 90.31 % [facility] ICD-PMT Intervention ENABLED [facility] ICD-PVC Intervention ENABLED [facility] ICD-Rate Modulation Acceleration Reaction 30 s [facility] ICD-Rate Modulation Deceleration Exercise [facility] ICD-Rate Modulation [place] 3 [facility] ICD-Rate Modulation Threshold MediumHigh [facility] ICD-Shocks Aborted (Vent) 0 [facility] [id number] 0 [facility] ICD-SHOCKSABORTED [address] [facility] ICD-SHOCKSDELIVEREDVEN TRICULAR 0 [facility] ICD-Ventricular Fibrillation 0 [facility] Implant Date 07/03/2005 [facility] Implant Date 11/30/2002 [facility] Lead Impedance (LV) [address] [facility] Lead Impedance (RV) [address] [facility] Lead Impedance High Voltage 64 ohm [facility] Lead1 Mfg MDT [facility] Lead2 Mfg MDT [facility] Lead3 Mfg GDT [facility] Location LV [facility] Location RA [facility] Location RV [facility] Lower Rate (bpm) 80 {beats}/min [facility] LV PACING % 0 % [facility] Max Sensor Rate (bpm) 90 {beats}/min [facility] RENATO_PROG_TACHY_ZONE_DE TECTIONS_STATUS ENABLED [facility] Model [id number] Viva XT LEASING ASSISTANT-D [facility] Model 4196 Attain Ability MRI SureScan [facility] Model 5076 CapSureFix Novus [facility] Model 0144 [employer]otak Endurance Rx [facility] Pacing Mode DDDR [facility] Serial Number [id number] [facility] Serial Number [id number] [facility] Serial Number [id number] [facility] Serial Number [id number] [facility] Test Charge Energy 18 J [facility] Test Charge Time 5.145 [facility] Therapy Status (Vent) Enabled [facility] Thresh RA Capture Amplitude (volts) 0.625 V [facility] Thresh RA Capture Duration (ms) 0.4 ms [facility] Thresh RA Sensing Amplitude (mvolts) 2.5 mV [facility] Thresh RV Capture Amplitude (VOLTS) 1.375 V [facility] Thresh RV Capture Duration (MS) 0.4 ms [facility] Thresh RV Sensing Amplitude (MVOLTS) 7.5 mV [facility] Tracking Rate (bpm) 90 {beats}/min [facility] VF Zone Detection Interval 450 ms [facility] VF Zone Therapy Configuration 2 ATP(s) + 0 Shock(s) [facility] No Panel Informationon 04-22 BLANK _ [facility] ICD-ATRIALTACHYCARDIA 0 [facility] ICD-Fast Ventricular Tachycardia 0 [facility] Implant Date 09/23/2016 [facility] ICD REMOTE CHECKon 3 ICD-Percent Pacing (Atrial) 80.04 % [facility] ICD-Percent Pacing (Atrial) 44.86 % [facility] ICD-Percent Pacing (Vent) 89.35 % [facility] ICD-Percent Pacing (Vent) 83.22 % [facility] Lead Impedance (RV) [address] [facility] Lead Impedance (RV) [address] [facility] Lead Impedance High Voltage 63 ohm [facility] Lead Impedance High Voltage 61 ohm [facility] Thresh RA Sensing Amplitude (mvolts) 2.375 mV [facility] Thresh RA Sensing Amplitude (mvolts) 2 mV [facility] Thresh RV Sensing Amplitude (MVOLTS) 8.75 mV [facility] Thresh RV Sensing Amplitude (MVOLTS) 9.25 mV [facility] No Panel Informationon 04-09 AV Delay Adaptive Paced Minimum (ms) 350 ms [facility] AV Delay Adaptive Rate Maximum (bpm) 90 {beats}/min [facility] AV Delay Adaptive Rate Minimum (bpm) 75 {beats}/min [facility] AV Delay Adaptive Sensed Minimum (ms) 250 ms [facility] AV Delay Adaptive Status ENABLED [facility] AV Delay Paced (ms) [address] [facility] AV Delay Sensed (ms) 70 ms [facility] Battery Voltage 2.78 V [facility] BLANK _ [facility] Scott RA Pacing Amplitude (volts) 2 V [facility] Scott RA Pacing Polarity BI [facility] Scott RA Pacing Pulse Width (ms) 0.4 ms [facility] Scott RA Sensing Amplitude (mvolts) 0.3 mV [facility] Scott RA Sensing Blanking Period (ms) 150 ms [facility] Scott RA Sensing Polarity BI [facility] Scott RA Sensing Refractory Period (ms) 250 ms [facility] Scott RV Pacing Amplitude (volts) 3 V [facility] Scott RV Pacing Polarity BI [facility] Scott RV Pacing Pulse Width (ms) 0.4 ms [facility] Scott RV Sensing Amplitude (mvolts) 0.3 mV [facility] Scott RV Sensing Blanking Period (ms) 200 ms [facility] Scott RV Sensing Polarity BI [facility] Detection Configuration (Vent) 2 - Zone [facility] FastVT_Detection Interval 450 ms [facility] FastVT_Therapy Configuration 2 ATP(s) + 0 Shock(s) [facility] ICD AFIB DetectionStatus DISABLED [facility] ICD ATAF DetectionInterval ms 450 ms [facility] ICD ATAF DetectionStatus ENABLED [facility] ICD ATAF TherapyConfiguration 2 ATP(s) + 0 Shock(s) [facility] ICD FastVT DetectionStatus ENABLED [facility] ICD-ADLRATE_BPM 85 {beats}/min [facility] ICD-AMS EPISODES 133 {beats}/min [facility] ICD-ATP Episodes (Vent) 0 [facility] ICD-ATRIALFIBRILLATION 0 Cl [facility] ICD-ATRIALTACHYCARDIA 0 [facility] ICD-Counters Cleared Date 09/23/2016 [facility] ICD-Device Mfg MDT [facility] ICD-Fast Ventricular Tachycardia 0 [facility] ICD-LEADIMPEDANCEATRIA L 342 ohm [facility] ICD-PMT Intervention ENABLED [facility] ICD-PVC Intervention ENABLED [facility] ICD-Rate Modulation Acceleration Reaction 30 s [facility] ICD-Rate Modulation Deceleration Exercise [facility] ICD-Rate Modulation [place] 3 [facility] ICD-Rate Modulation Threshold MediumHigh [facility] ICD-Shocks Aborted (Vent) 0 [facility] [id number] 0 [facility] ICD-SHOCKSABORTED [address] [facility] ICD-SHOCKSDELIVEREDVEN TRICULAR 0 [facility] ICD-Ventricular Fibrillation 0 [facility] Implant Date 09/23/2016 [facility] Implant Date 07/03/2005 [facility] Implant Date 11/30/2002 [facility] Lead Impedance (LV) [address] [facility] Lead1 Mfg MDT [facility] Lead2 Mfg MDT [facility] Lead3 Mfg GDT [facility] Location LV [facility] Location RA [facility] Location RV [facility] Lower Rate (bpm) 80 {beats}/min [facility] LV PACING % 0 % [facility] Max Sensor Rate (bpm) 90 {beats}/min [facility] MDT_PROG_TACHY_ZONE_DE TECTIONS_STATUS ENABLED [facility] Model [id number] Viva XT LEASING ASSISTANT-D [facility] Model 4196 Attain Ability MRI SureScan [facility] Model 5076 CapSureFix Novus [facility] Model 0144 [employer]otak Endurance Rx [facility] Pacing Mode DDDR [facility] Serial Number [id number] [facility] Serial Number [id number] [facility] Serial Number [id number] [facility] Serial Number [id number] [facility] Test Charge Energy 18 J [facility] Test Charge Time 5.145 [facility] Therapy Status (Vent) Enabled [facility] Thresh RA Capture Amplitude (volts) 0.625 V [facility] Thresh RA Capture Duration (ms) 0.4 ms [facility] Thresh RV Capture Amplitude (VOLTS) 1.125 V [facility] Thresh RV Capture Duration (MS) 0.4 ms [facility] Tracking Rate (bpm) 90 {beats}/min [facility] VF Zone Detection Interval 450 ms [facility] VF Zone Therapy Configuration 2 ATP(s) + 0 Shock(s) [facility] ICD REMOTE CHECKon 3 Scott RV Pacing Amplitude (volts) 2.75 V [facility] Scott RV Pacing Amplitude (volts) 3 V [facility] ICD-Percent Pacing (Atrial) 99.2 % [facility] ICD-Percent Pacing (Atrial) 81.31 % [facility] ICD-Percent Pacing (Vent) 99.87 % [facility] ICD-Percent Pacing (Vent) 99.41 % [facility] Lead Impedance High Voltage 62 ohm [facility] Lead Impedance High Voltage 61 ohm [facility] Thresh RA Sensing Amplitude (mvolts) 2.25 mV [facility] Thresh RA Sensing Amplitude (mvolts) 3 mV [facility] Thresh RV Capture Amplitude (VOLTS) 1.375 V [facility] Thresh RV Capture Amplitude (VOLTS) 1.25 V [facility] Thresh RV Sensing Amplitude (MVOLTS) 8.125 mV [facility] Thresh RV Sensing Amplitude (MVOLTS) 8.75 mV [facility] No Panel Informationon 03-29 AV Delay Adaptive Paced Minimum (ms) 350 ms [facility] AV Delay Adaptive Rate Maximum (bpm) 90 {beats}/min [facility] AV Delay Adaptive Rate Minimum (bpm) 75 {beats}/min [facility] AV Delay Adaptive Sensed Minimum (ms) 250 ms [facility] AV Delay Adaptive Status ENABLED [facility] AV Delay Paced (ms) [address] [facility] AV Delay Sensed (ms) 70 ms [facility] Battery Voltage 2.79 V [facility] BLANK _ [facility] Scott RA Pacing Amplitude (volts) 2 V [facility] Scott RA Pacing Polarity BI [facility] Scott RA Pacing Pulse Width (ms) 0.4 ms [facility] Scott RA Sensing Amplitude (mvolts) 0.3 mV [facility] Scott RA Sensing Blanking Period (ms) 150 ms [facility] Scott RA Sensing Polarity BI [facility] Scott RA Sensing Refractory Period (ms) 250 ms [facility] Scott RV Pacing Polarity BI [facility] Scott RV Pacing Pulse Width (ms) 0.4 ms [facility] Scott RV Sensing Amplitude (mvolts) 0.3 mV [facility] Scott RV Sensing Blanking Period (ms) 200 ms [facility] Scott RV Sensing Polarity BI [facility] Detection Configuration (Vent) 2 - Zone [facility] FastVT_Detection Interval 450 ms [facility] FastVT_Therapy Configuration 2 ATP(s) + 0 Shock(s) [facility] ICD AFIB DetectionStatus DISABLED [facility] ICD ATAF DetectionInterval ms 450 ms [facility] ICD ATAF DetectionStatus ENABLED [facility] ICD ATAF TherapyConfiguration 2 ATP(s) + 0 Shock(s) [facility] ICD FastVT DetectionStatus ENABLED [facility] ICD-ADLRATE_BPM 85 {beats}/min [facility] ICD-AMS EPISODES 133 {beats}/min [facility] ICD-ATP Episodes (Vent) 0 [facility] ICD-ATRIALFIBRILLATION 0 Cl [facility] ICD-ATRIALTACHYCARDIA 0 [facility] ICD-Counters Cleared Date 09/23/2016 [facility] ICD-Device Mfg MDT [facility] ICD-Fast Ventricular Tachycardia 0 [facility] ICD-LEADIMPEDANCEATRIA L 342 ohm [facility] ICD-PMT Intervention ENABLED [facility] ICD-PVC Intervention ENABLED [facility] ICD-Rate Modulation Acceleration Reaction 30 s [facility] ICD-Rate Modulation Deceleration Exercise [facility] ICD-Rate Modulation [place] 3 [facility] ICD-Rate Modulation Threshold MediumHigh [facility] ICD-Shocks Aborted (Vent) 0 [facility] [id number] 0 [facility] ICD-SHOCKSABORTED [address] [facility] ICD-SHOCKSDELIVEREDVEN TRICULAR 0 [facility] ICD-Ventricular Fibrillation 0 [facility] Implant Date 09/23/2016 [facility] Implant Date 07/03/2005 [facility] Implant Date 11/30/2002 [facility] Lead Impedance (LV) [address] [facility] Lead Impedance (RV) [address] [facility] Lead1 Mfg MDT [facility] Lead2 Mfg MDT [facility] Lead3 Mfg GDT [facility] Location LV [facility] Location RA [facility] Location RV [facility] Lower Rate (bpm) 80 {beats}/min [facility] LV PACING % 0 % [facility] Max Sensor Rate (bpm) 90 {beats}/min [facility] MDT_PROG_TACHY_ZONE_DE TECTIONS_STATUS ENABLED [facility] Model [id number] Viva XT LEASING ASSISTANT-D [facility] Model 4196 Attain Ability MRI SureScan [facility] Model 5076 CapSureFix Novus [facility] Model 0144 [employer]otak Endurance Rx [facility] Pacing Mode DDDR [facility] Serial Number [id number] [facility] Serial Number [id number] [facility] Serial Number [id number] [facility] Serial Number [id number] [facility] Test Charge Energy 18 J [facility] Test Charge Time 5.145 [facility] Therapy Status (Vent) Enabled [facility] Thresh RA Capture Amplitude (volts) 0.625 V [facility] Thresh RA Capture Duration (ms) 0.4 ms [facility] Thresh RV Capture Duration (MS) 0.4 ms [facility] Tracking Rate (bpm) 90 {beats}/min [facility] VF Zone Detection Interval 450 ms [facility] VF Zone Therapy Configuration 2 ATP(s) + 0 Shock(s) [facility] ICD REMOTE CHECKon 3 Battery Voltage 2.78 V [facility] Battery Voltage 2.79 V [facility] ICD-LEADIMPEDANCEATRIA L 361 ohm [facility] ICD-LEADIMPEDANCEATRIA L 342 ohm [facility] ICD-Percent Pacing (Atrial) 98.5 % [facility] ICD-Percent Pacing (Atrial) 99.95 % [facility] ICD-Percent Pacing (Vent) 99.69 % [facility] ICD-Percent Pacing (Vent) 99.97 % [facility] Lead Impedance High Voltage 62 ohm [facility] Lead Impedance High Voltage 59 ohm [facility] Thresh RV Sensing Amplitude (MVOLTS) 13.25 mV [facility] Thresh RV Sensing Amplitude (MVOLTS) 11 mV [facility] No Panel Informationon 03-05 AV Delay Adaptive Paced Minimum (ms) 350 ms [facility] AV Delay Adaptive Rate Maximum (bpm) 90 {beats}/min [facility] AV Delay Adaptive Rate Minimum (bpm) 75 {beats}/min [facility] AV Delay Adaptive Sensed Minimum (ms) 250 ms [facility] AV Delay Adaptive Status ENABLED [facility] AV Delay Paced (ms) [address] [facility] AV Delay Sensed (ms) 70 ms [facility] BLANK _ [facility] Scott RA Pacing Amplitude (volts) 2 V [facility] Scott RA Pacing Polarity BI [facility] Sctot RA Pacing Pulse Width (ms) 0.4 ms [facility] Scott RA Sensing Amplitude (mvolts) 0.3 mV [facility] Scott RA Sensing Blanking Period (ms) 150 ms [facility] Scott RA Sensing Polarity BI [facility] Scott RA Sensing Refractory Period (ms) 250 ms [facility] Scott RV Pacing Amplitude (volts) 2.75 V [facility] Scott RV Pacing Polarity BI [facility] Scott RV Pacing Pulse Width (ms) 0.4 ms [facility] Scott RV Sensing Amplitude (mvolts) 0.3 mV [facility] Scott RV Sensing Blanking Period (ms) 200 ms [facility] Scott RV Sensing Polarity BI [facility] Detection Configuration (Vent) 2 - Zone [facility] FastVT_Detection Interval 450 ms [facility] FastVT_Therapy Configuration 2 ATP(s) + 0 Shock(s) [facility] ICD AFIB DetectionStatus DISABLED [facility] ICD ATAF DetectionInterval ms 450 ms [facility] ICD ATAF DetectionStatus ENABLED [facility] ICD ATAF TherapyConfiguration 2 ATP(s) + 0 Shock(s) [facility] ICD FastVT DetectionStatus ENABLED [facility] ICD-ADLRATE_BPM 85 {beats}/min [facility] ICD-AMS EPISODES 133 {beats}/min [facility] ICD-ATP Episodes (Vent) 0 [facility] ICD-ATRIALFIBRILLATION 0 Cl [facility] ICD-ATRIALTACHYCARDIA 0 [facility] ICD-Counters Cleared Date 09/23/2016 [facility] ICD-Device Emilyg MDT [facility] ICD-Fast Ventricular Tachycardia 0 [facility] ICD-PMT Intervention ENABLED [facility] ICD-PVC Intervention ENABLED [facility] ICD-Rate Modulation Acceleration Reaction 30 s [facility] ICD-Rate Modulation Deceleration Exercise [facility] ICD-Rate Modulation [place] 3 [facility] ICD-Rate Modulation Threshold MediumHigh [facility] ICD-Shocks Aborted (Vent) 0 [facility] [id number] 0 [facility] ICD-SHOCKSABORTED [address] [facility] ICD-SHOCKSDELIVEREDVEN TRICULAR 0 [facility] ICD-Ventricular Fibrillation 0 [facility] Implant Date 09/23/2016 [facility] Implant Date 07/03/2005 [facility] Implant Date 11/30/2002 [facility] Lead Impedance (LV) [address] [facility] Lead Impedance (RV) [address] [facility] Lead1 Mfg MDT [facility] Lead2 Mfg MDT [facility] Lead3 Mfg GDT [facility] Location LV [facility] Location RA [facility] Location RV [facility] Lower Rate (bpm) 80 {beats}/min [facility] LV PACING % 0 % [facility] Max Sensor Rate (bpm) 90 {beats}/min [facility] MDT_PROG_TACHY_ZONE_DE TECTIONS_STATUS ENABLED [facility] Model [id number] Viva XT LEASING ASSISTANT-D [facility] Model 4196 Attain Ability MRI SureScan [facility] Model 5076 CapSureFix Novus [facility] Model 0144 [employer]otak Endurance Rx [facility] Pacing Mode DDDR [facility] Serial Number [id number] [facility] Serial Number [id number] [facility] Serial Number [id number] [facility] Serial Number [id number] [facility] Test Charge Energy 18 J [facility] Test Charge Time 5.145 [facility] Therapy Status (Vent) Enabled [facility] Thresh RA Capture Amplitude (volts) 0.625 V [facility] Thresh RA Capture Duration (ms) 0.4 ms [facility] Thresh RA Sensing Amplitude (mvolts) 2.875 mV [facility] Thresh RV Capture Amplitude (VOLTS) 1.375 V [facility] Thresh RV Capture Duration (MS) 0.4 ms [facility] Tracking Rate (bpm) 90 {beats}/min [facility] VF Zone Detection Interval 450 ms [facility] VF Zone Therapy Configuration 2 ATP(s) + 0 Shock(s) [facility] XR CSPINE 2_3 VIEWSon 2022 XR [...] TENZIN ALEJO Date: 2023-01-27 10:58 Normal [facility] PROTIMEon 01-03-2023 INR Coag (PPP) [Relative time] 0.98 {INR} Normal [facility] Comment on above: Performed By: #### P T ####[facility] [id number] [place] [address]Dr. Melissa Helm INR GUIDELINES SEE BELOW Normal [facility] Comment on above: Result Comment: POOJA RED INR: 2.0 - 3.0 CONDITIONS NOT LISTED BELOW 2.5 - 3.5 FOR PROSTHETIC HEART VALVE REPLACEMENT 2.5 - 3.5 RECURRENT THROMBOSIS Performed By: #### P T ####[facility] [id number] [place], [place] [address]Mt. Melissa Helm PT Coag (PPP) [Time] 10.4 s Normal 9.0-11.6 [facility] Comment on above: Performed By: #### P T ####[facility] [id number] [place], [place] [address]Js. Melissa Helm XR SHOULDER RT 2V or [...] FAUSTO GONCALVES Date: 2023-01-03 13:54 Normal [facility] ICD REMOTE CHECKon 3 AV Delay Adaptive Paced Minimum (ms) 350 ms [facility] AV Delay Adaptive Rate Maximum (bpm) 90 {beats}/min [facility] AV Delay Adaptive Rate Minimum (bpm) 75 {beats}/min [facility] AV Delay Adaptive Sensed Minimum (ms) 250 ms [facility] AV Delay Adaptive Status ENABLED [facility] AV Delay Paced (ms) [address] [facility] AV Delay Sensed (ms) 70 [facility] [place] Voltage 2.81 V [facility] Scott RA Pacing Amplitude (volts) 2 V [facility] Scott RA Pacing Polarity BI [facility] Scott RA Pacing Pulse Width (ms) 0.4 ms [facility] Scott RA Sensing Amplitude (mvolts) 0.3 mV [facility] Scott RA Sensing Blanking Period (ms) 150 ms [facility] Scott RA Sensing Polarity BI [facility] Scott RA Sensing Refractory Period (ms) 250 ms [facility] Scott RV Pacing Amplitude (volts) 2.75 V [facility] Scott RV Pacing Polarity BI [facility] Scott RV Pacing Pulse Width (ms) 0.4 ms [facility] Scott RV Sensing Amplitude (mvolts) 0.3 mV [facility] Scott RV Sensing Blanking Period (ms) 200 ms [facility] Scott RV Sensing Polarity BI [facility] Detection Configuration (Vent) 2 - Zone [facility] FastVT_Detection Interval 450 ms [facility] FastVT_Therapy Configuration 2 ATP(s) + 0 Shock(s) [facility] ICD AFIB DetectionStatus DISABLED [facility] ICD ATAF DetectionInterval ms 450 ms [facility] ICD ATAF DetectionStatus ENABLED [facility] ICD ATAF TherapyConfiguration 2 ATP(s) + 0 Shock(s) [facility] ICD FastVT DetectionStatus ENABLED [facility] ICD-ADLRATE_BPM 85 {beats}/min [facility] ICD-AMS EPISODES 133 {beats}/min [facility] ICD-ATP Episodes (Vent) 0 [facility] ICD-ATRIALFIBRILLATION 0 Cl [facility] ICD-Counters Cleared Date 09/23/2016 [facility] ICD-Device Mfg MDT [facility] ICD-LEADIMPEDANCEATRIA L 342 ohm [facility] ICD-Percent Pacing (Atrial) 99.28 % [facility] ICD-Percent Pacing (Vent) 99.57 % [facility] ICD-PMT Intervention ENABLED [facility] ICD-PVC Intervention ENABLED [facility] ICD-Rate Modulation Acceleration Reaction 30 s [facility] ICD-Rate Modulation Deceleration Exercise [facility] ICD-Rate Modulation [place] 3 [facility] ICD-Rate Modulation Threshold MediumHigh [facility] ICD-Shocks Aborted (Vent) 0 [facility] [id number] 0 [facility] ICD-SHOCKSABORTED [address] [facility] ICD-SHOCKSDELIVEREDVEN TRICULAR 0 [facility] ICD-Ventricular Fibrillation 0 [facility] Implant Date 07/03/2005 [facility] Implant Date 11/30/2002 [facility] Lead Impedance (LV) [address] [facility] Lead Impedance (RV) [address] [facility] Lead Impedance High Voltage 64 ohm [facility] Lead1 Mfg MDT [facility] Lead2 Mfg MDT [facility] Lead3 Mfg GDT [facility] Location LV [facility] Location RA [facility] Location RV [facility] Lower Rate (bpm) 80 {beats}/min [facility] LV PACING % 0 % [facility] Max Sensor Rate (bpm) 90 {beats}/min [facility] RENATO_KAIN_TACHY_ZONE_DE TECTIONS_STATUS ENABLED [facility] Model [id number] Viva XT LEASING ASSISTANT-D [facility] Model 4196 Attain Ability MRI SureScan [facility] Model 5076 CapSureFix Novus [facility] Model 0144 [employer]otak Endurance Rx [facility] Pacing Mode DDDR [facility] Serial Number [id number] [facility] Serial Number [id number] [facility] Serial Number [id number] [facility] Serial Number [id number] [facility] Test Charge Energy 18 J [facility] Test Charge Time 4.834 [facility] Therapy Status (Vent) Enabled [facility] Thresh RA Capture Amplitude (volts) 0.625 V [facility] Thresh RA Capture Duration (ms) 0.4 ms [facility] Thresh RA Sensing Amplitude (mvolts) 2 mV [facility] Thresh RV Capture Amplitude (VOLTS) 1.375 V [facility] Thresh RV Capture Duration (MS) 0.4 ms [facility] Thresh RV Sensing Amplitude (MVOLTS) 7.5 mV [facility] Tracking Rate (bpm) 90 {beats}/min [facility] VF Zone Detection Interval 450 ms [facility] VF Zone Therapy Configuration 2 ATP(s) + 0 Shock(s) [facility] No Panel Informationon 11-28 BLANK _ [facility] ICD-ATRIALTACHYCARDIA 0 [facility] ICD-Fast Ventricular Tachycardia 0 [facility] Implant Date 09/23/2016 [facility] NM BONE IMAGE 3 PHASEon 10-01 [...] fracture versus tumor. Electronically authenticated by: JC ZINICOLEYANETH Date: 2022-10-26 13:35 Normal [facility] TRANSFERRINon 10-07-2022 Transferrin [Mass/Vol] 354 mg/dL Normal 192-364 Th e [facility] Comment on above: Performed By: #### T RANSFR #### [facility] [address] [place] [address] Dr. Melissa Helm CBC AUTO DIFFon 10-06-2022 BASO # 0.1 103/ul Normal 0.0-0.1 [facility] Comment on above: Performed By: #### C BC #### [facility] [address] [place] [address] Dr. Melissa Helm Basophils/100 WBC (Bld) 0.9 % Normal 0.2-2.0 [facility] Comment on above: Performed By: #### C BC #### [facility] [address] [place] [address] Dr. Melissa Helm EO # 0.4 103/ul Normal 0.0-0.7 [facility] Comment on above: Performed By: #### C BC #### [facility] [address] [place] [address] Dr. Melissa Helm Eosinophils/100 WBC (Bld) 2.7 % Normal 0.9-7.0 [facility] Comment on above: Performed By: #### C BC #### [facility] [address] [place] [address] Dr. Melissa Helm Erythrocyte distribution width (RBC) [Ratio] 20.8 % Critically high 11.0-15.0 [facility] Comment on above: Performed By: #### C BC #### [facility] [address] [place] [address] Dr. Melissa Helm Hematocrit (Bld) [Volume fraction] 38.3 % Normal 36.0-48.0 [facility] Comment on above: Performed By: #### C BC #### [facility] [address] [place] [address] Dr. Melissa Helm Hemoglobin (Bld) [Mass/Vol] 10.8 g/dL Critically low 12.0-16.0 [facility] Comment on above: Performed By: #### C BC #### [facility] [address] [place] [address] Dr. Melissa Helm IG # 0.07 10e3/ul Critically high 0.00-0.03 [facility] Comment on above: Performed By: #### C BC #### [facility] [address] [place] [address] Dr. Melissa Helm IG % 0.5 % Normal 0.0-0.5 [facility] Comment on above: Performed By: #### C BC #### [facility] [address] [place] [address] Dr. Melissa Helm LYMPH # 2.2 103/ul Normal 1.2-3.8 [facility] Comment on above: Performed By: #### C BC #### [facility] [address] [place] [address] Dr. Melissa Helm Lymphocytes/100 WBC (Bld) 17.5 % Critically low 20.5-60.0 [facility] Comment on above: Performed By: #### C BC #### [facility] [address] [place] [address] Dr. Melissa Helm MANUAL DIFF REQ NO Normal [facility] Comment on above: Performed By: #### C BC #### [facility] [address] [place] [address] Dr. Melissa Helm MCH (RBC) [Entitic mass] 20.6 pg Critically low 26.7-34.0 [facility] Comment on above: Performed By: #### C BC #### [facility] [address] [place] [address] Dr. Melissa Helm MCHC (RBC) [Mass/Vol] 28.2 g/dL Critically low 29.9-35.2 [facility] Comment on above: Performed By: #### C BC #### [facility] [address] [place] [address] Dr. Melissa Helm MCV (RBC) [Entitic vol] 73.0 fL Critically low 81.0-99.0 [facility] Comment on above: Performed By: #### C BC #### [facility] [address] [address] [address] Melissa Helm MONO # 1.2 103/ul Critically high 0.3-0.[address] [facility] Comment on above: Performed By: #### C BC #### [facility] [address] [address] [address] eMlissa Helm Monocytes/100 WBC (Bld) 9.0 % Normal 1.7-12.0 [facility] Comment on above: Performed By: #### C BC #### [facility] [address] [place] [address] Dr. Melissa Helm NEUT # 8.9 103/ul Critically high 1.4-6.[address] [facility] Comment on above: Performed By: #### C BC #### [facility] [address] [place] [address] Dr. Melissa Helm Neutrophils/100 WBC (Bld) 69.4 % Normal 43.0-75.0 [facility] Comment on above: Performed By: #### C BC #### [facility] [address] [place] [address] Dr. Melissa Helm PLT 184 103/ul Normal 150-450 [facility] Comment on above: Performed By: #### C BC #### [facility] [address] [place] [address] Dr. Melissa Helm RBC 5.25 106/ul Normal 4.20-5.40 [facility] Comment on above: Performed By: #### C BC #### [facility] [address] [place] [address] Dr. Melissa Helm WBC 12.8 103/ul Critically high 4.0-11.0 [facility] Comment on above: Performed By: #### C BC #### [facility] [address] [place] [address] Dr. Melissa Helm FERRITINon 10-06-2022 Ferritin [Mass/Vol] 33.0 ng/mL Normal 8.0-252.0 [facility] Comment on above: Performed By: #### F ERR, FETIBC #### [facility] [address] [address] [address] Melissa Helm IRON AND TIBCon 10-06-2022 % SATURATION 20.3 % Normal [facility] Comment on above: Performed By: #### F ERR, FETIBC #### [facility] [address] [address] [address] Melissa Helm Iron [Mass/Vol] 89.0 ug/dL Normal 50.0-170.[address] [facility] Comment on above: Performed By: #### F ERR, FETIBC #### [facility] [address] [address] [address] Melissa Helm TIBC DIRECT 438.0 ug/dL Normal 250.0-450. 0 [facility] Comment on above: Performed By: #### F ERR, FETIBC #### [facility] [address] [address] [address] 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] 07/23/2020 Primary hypertension [I10] Nicotine use disorder [F17.200] Exercise-induced asthma [J45.990] Anemia [D64.9] 10/29/2011 07/23/2020 H/o GERD [K21.9] 07/23/2020 Migraines [G43.909] H/o Depression/Anxiety/Sleep disturbance [F32.* Preop testing [Z01.818] 07/08/2012 07/23/2020 SUMMARY [V999.95] 07/11/2012 07/23/2020 Pulmonary hypertension, moderate to severe (HCC*2012 Other acute postoperative pain [G89.18] 07/13/2012 07/16/2012 Pulmonary insuff [TMD1274] 07/13/2012 07/23/2020 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 AV Delay Sensed (ms) 70 ms [facility] Battery Voltage 2.85 V [facility] Scott RA Pacing Amplitude (volts) 2 V [facility] Scott RA Pacing Polarity BI [facility] Scott RA Pacing Pulse Width (ms) 0.4 ms [facility] Scott RA Sensing Amplitude (mvolts) 0.3 mV [facility] Scott RA Sensing Blanking Period (ms) 150 ms [facility] Scott RA Sensing Polarity BI [facility] Scott RA Sensing Refractory Period (ms) 250 ms [facility] Scott RV Pacing Amplitude (volts) 2.5 V [facility] Scott RV Pacing Polarity BI [facility] Scott RV Pacing Pulse Width (ms) 0.4 ms [facility] Scott RV Sensing Amplitude (mvolts) 0.3 mV [facility] Scott RV Sensing Blanking Period (ms) 200 ms [facility] Scott RV Sensing Polarity BI [facility] Detection Configuration (Vent) 2 - Zone [facility] FastVT_Detection Interval 450 ms [facility] FastVT_Therapy Configuration 2 ATP(s) + 0 Shock(s) [facility] ICD AFIB DetectionStatus DISABLED [facility] ICD ATAF DetectionInterval ms 450 ms [facility] ICD ATAF DetectionStatus ENABLED [facility] ICD ATAF TherapyConfiguration 2 ATP(s) + 0 Shock(s) [facility] ICD FastVT DetectionStatus ENABLED [facility] ICD-ADLRATE_BPM 85 {beats}/min [facility] ICD-AMS EPISODES 133 {beats}/min [facility] ICD-ATP Episodes (Vent) 0 [facility] ICD-ATRIALFIBRILLATION 4 Cl [facility] ICD-ATRIALTACHYCARDIA 4 [facility] ICD-Counters Cleared Date 09/23/2016 [facility] ICD-Device Mfg MDT [facility] ICD-LEADIMPEDANCEATRIA L 361 ohm [facility] ICD-Percent Pacing (Atrial) 79.65 % [facility] ICD-Percent Pacing (Vent) 98.96 % [facility] ICD-PMT Intervention ENABLED [facility] ICD-PVC Intervention ENABLED [facility] ICD-Rate Modulation Acceleration Reaction 30 s [facility] ICD-Rate Modulation Deceleration Exercise [facility] ICD-Rate Modulation [place] 3 [facility] ICD-Rate Modulation Threshold MediumHigh [facility] ICD-Shocks Aborted (Vent) 0 [facility] [id number] 0 [facility] ICD-SHOCKSABORTED [address] [facility] ICD-SHOCKSDELIVEREDVEN TRICULAR 0 [facility] ICD-Ventricular Fibrillation 0 [facility] Implant Date 07/03/2005 [facility] Implant Date 11/30/2002 [facility] Lead Impedance (LV) [address] [facility] Lead Impedance (RV) [address] [facility] Lead Impedance High Voltage 63 ohm [facility] Lead1 Mfg MDT [facility] Lead2 Mfg MDT [facility] Lead3 Mfg GDT [facility] Location LV [facility] Location RA [facility] Location RV [facility] Lower Rate (bpm) 80 {beats}/min [facility] LV PACING % 0 % [facility] Max Sensor Rate (bpm) 90 {beats}/min [facility] MDT_PROG_TACHY_ZONE_DE TECTIONS_STATUS ENABLED [facility] Model [id number] Viva XT LEASING ASSISTANT-D [facility] Model 4196 Attain Ability [facility] Model 5076 CapSureFix Novus [facility] Model 0144 [employer] Endurance Rx [facility] Pacing Mode DDDR [facility] Serial Number [id number] [facility] Serial Number [id number] [facility] Serial Number [id number] [facility] Serial Number [id number] [facility] Test Charge Energy 18 J [facility] Test Charge Time 4.464 [facility] Therapy Status (Vent) Enabled [facility] Thresh RA Capture Amplitude (volts) 0.625 V [facility] Thresh RA Capture Duration (ms) 0.4 ms [facility] Thresh RA Sensing Amplitude (mvolts) 2.375 mV [facility] Thresh RV Capture Amplitude (VOLTS) 1.25 V [facility] Thresh RV Capture Duration (MS) 0.4 ms [facility] Thresh RV Sensing Amplitude (MVOLTS) 12 mV [facility] Tracking Rate (bpm) 90 {beats}/min [facility] VF Zone Detection Interval 450 ms [facility] VF Zone Therapy Configuration 2 ATP(s) + 0 Shock(s) [facility] No Panel Informationon 08-25 BLANK _ [facility] ICD-ATRIALTACHYCARDIA 0 [facility] ICD-Fast Ventricular Tachycardia 0 [facility] Implant Date 09/23/2016 [facility] ICD REMOTE CHECKon 2 AV Delay Adaptive Paced Minimum (ms) 350 ms [facility] AV Delay Adaptive Rate Maximum (bpm) 90 {beats}/min [facility] AV Delay Adaptive Rate Minimum (bpm) 75 {beats}/min [facility] AV Delay Adaptive Sensed Minimum (ms) 250 ms [facility] AV Delay Adaptive Status ENABLED [facility] AV Delay Paced (ms) [address] [facility] AV Delay Sensed (ms) 70 ms [facility] Battery Voltage 2.86 V [facility] Scott RA Pacing Amplitude (volts) 2 V [facility] Scott RA Pacing Polarity BI [facility] Scott RA Pacing Pulse Width (ms) 0.4 ms [facility] Scott RA Sensing Amplitude (mvolts) 0.3 mV [facility] Scott RA Sensing Blanking Period (ms) 150 ms [facility] Scott RA Sensing Polarity BI [facility] Scott RA Sensing Refractory Period (ms) 250 ms [facility] Scott RV Pacing Amplitude (volts) 3 V [facility] Scott RV Pacing Polarity BI [facility] Scott RV Pacing Pulse Width (ms) 0.4 ms [facility] Scott RV Sensing Amplitude (mvolts) 0.3 mV [facility] Scott RV Sensing Blanking Period (ms) 200 ms [facility] Scott RV Sensing Polarity BI [facility] Detection Configuration (Vent) 2 - Zone [facility] FastVT_Detection Interval 450 ms [facility] FastVT_Therapy Configuration 2 ATP(s) + 0 Shock(s) [facility] ICD AFIB DetectionStatus DISABLED [facility] ICD ATAF DetectionInterval ms 450 ms [facility] ICD ATAF DetectionStatus ENABLED [facility] ICD ATAF TherapyConfiguration 2 ATP(s) + 0 Shock(s) [facility] ICD FastVT DetectionStatus ENABLED [facility] ICD-ADLRATE_BPM 85 {beats}/min [facility] ICD-AMS EPISODES 133 {beats}/min [facility] ICD-ATP Episodes (Vent) 0 [facility] ICD-ATRIALFIBRILLATION 1 [facility] ICD-ATRIALTACHYCARDIA 1 [facility] ICD-Counters Cleared Date 09/23/2016 [facility] ICD-Device Mfg MDT [facility] ICD-LEADIMPEDANCEATRIA L 361 ohm [facility] ICD-Percent Pacing (Atrial) 84.32 % [facility] ICD-Percent Pacing (Vent) 99.05 % [facility] ICD-PMT Intervention ENABLED [facility] ICD-PVC Intervention ENABLED [facility] ICD-Rate Modulation Acceleration Reaction 30 s [facility] ICD-Rate Modulation Deceleration Exercise [facility] ICD-Rate Modulation [place] 3 [facility] ICD-Rate Modulation Threshold MediumHigh [facility] ICD-Shocks Aborted (Vent) 0 [facility] [id number] 0 [facility] ICD-SHOCKSABORTED [address] [facility] ICD-SHOCKSDELIVEREDVEN TRICULAR 0 [facility] ICD-Ventricular Fibrillation 0 [facility] Implant Date 07/03/2005 [facility] Implant Date 11/30/2002 [facility] Lead Impedance (LV) [address] [facility] Lead Impedance (RV) [address] [facility] Lead Impedance High Voltage 63 ohm [facility] Lead1 Mfg MDT [facility] Lead2 Mfg MDT [facility] Lead3 Mfg GDT [facility] Location LV [facility] Location RA [facility] Location RV [facility] Lower Rate (bpm) 80 {beats}/min [facility] LV PACING % 0 % [facility] Max Sensor Rate (bpm) 90 {beats}/min [facility] MDT_PROG_TACHY_ZONE_DE TECTIONS_STATUS ENABLED [facility] Model [id number] Viva XT LEASING ASSISTANT-D [facility] Model 4196 Attain Ability MRI SureScan [facility] Model 5076 CapSureFix Novus [facility] Model 0144 [employer]ot[employer] Endurance Rx [facility] Pacing Mode DDDR [facility] Serial Number [id number] [facility] Serial Number [id number] [facility] Serial Number [id number] [facility] Serial Number [id number] [facility] Test Charge Energy 18 J [facility] Test Charge Time 4.464 [facility] Therapy Status (Vent) Enabled [facility] Thresh RA Capture Amplitude (volts) 0.625 V [facility] Thresh RA Capture Duration (ms) 0.4 ms [facility] Thresh RA Sensing Amplitude (mvolts) 3.125 mV [facility] Thresh RV Capture Amplitude (VOLTS) 1.5 V [facility] Thresh RV Capture Duration (MS) 0.4 ms [facility] Thresh RV Sensing Amplitude (MVOLTS) 10.75 mV [facility] Tracking Rate (bpm) 90 {beats}/min [facility] VF Zone Detection Interval 450 ms [facility] VF Zone Therapy Configuration 2 ATP(s) + 0 Shock(s) [facility] No Panel Informationon 07-01 BLANK _ [facility] ICD-ATRIALTACHYCARDIA 0 [facility] ICD-Fast Ventricular Tachycardia 0 [facility] Implant Date 09/23/2016 [facility] No Panel Informationon 06-01 AV Delay Adaptive Paced Minimum (ms) 350 ms [facility] AV Delay Adaptive Rate Maximum (bpm) 90 {beats}/min [facility] AV Delay Adaptive Rate Minimum (bpm) 75 {beats}/min [facility] AV Delay Adaptive Sensed Minimum (ms) 250 ms [facility] AV Delay Adaptive Status ENABLED [facility] AV Delay Paced (ms) [address] [facility] AV Delay Sensed (ms) 70 ms [facility] Battery Voltage 2.85 V [facility] BLANK _ [facility] Scott LV Pacing Polarity BI [facility] Scott RA Pacing Amplitude (volts) 2 V [facility] Scott RA Pacing Polarity BI [facility] Scott RA Pacing Pulse Width (ms) 0.4 ms [facility] Scott RA Sensing Amplitude (mvolts) 0.3 mV [facility] Scott RA Sensing Blanking Period (ms) 150 ms [facility] Scott RA Sensing Polarity BI [facility] Scott RA Sensing Refractory Period (ms) 250 ms [facility] Scott RV Pacing Amplitude (volts) 2.75 V [facility] Scott RV Pacing Polarity BI [facility] Scott RV Pacing Pulse Width (ms) 0.4 ms [facility] Scott RV Sensing Amplitude (mvolts) 0.3 mV [facility] Scott RV Sensing Blanking Period (ms) 200 ms [facility] Scott RV Sensing Polarity BI [facility] Detection Configuration (Vent) 2 - Zone [facility] FastVT_Detection Interval 450 ms [facility] FastVT_Therapy Configuration 2 ATP(s) + 0 Shock(s) [facility] ICD AFIB DetectionStatus DISABLED [facility] ICD ATAF DetectionInterval ms 450 ms [facility] ICD ATAF DetectionStatus ENABLED [facility] ICD ATAF TherapyConfiguration 2 ATP(s) + 0 Shock(s) [facility] ICD FastVT DetectionStatus ENABLED [facility] ICD-ADLRATE_BPM 85 {beats}/min [facility] ICD-AMS EPISODES 133 {beats}/min [facility] ICD-ATP Episodes (Vent) 0 [facility] ICD-ATRIALFIBRILLATION 117 Cl [facility] ICD-ATRIALTACHYCARDIA 117 [facility] ICD-ATRIALTACHYCARDIA 0 [facility] ICD-Counters Cleared Date 09/23/2016 [facility] ICD-Device Mfg MDT [facility] ICD-Fast Ventricular Tachycardia 0 [facility] ICD-LEADIMPEDANCEATRIA L 342 ohm [facility] ICD-Percent Pacing (Atrial) 67.54 % [facility] ICD-Percent Pacing (Vent) 96.8 % [facility] ICD-PMT Intervention ENABLED [facility] ICD-PVC Intervention ENABLED [facility] ICD-Rate Modulation Acceleration Reaction 30 s [facility] ICD-Rate Modulation Deceleration Exercise [facility] ICD-Rate Modulation [place] 3 [facility] ICD-Rate Modulation Threshold MediumHigh [facility] ICD-Shocks Aborted (Vent) 0 [facility] [id number] 0 [facility] ICD-SHOCKSABORTED [address] [facility] ICD-SHOCKSDELIVEREDVEN TRICULAR 0 [facility] ICD-Ventricular Fibrillation 0 [facility] Implant Date 09/23/2016 [facility] Implant Date 07/03/2005 [facility] Implant Date 11/30/2002 [facility] Lead Impedance (LV) [address] [facility] Lead Impedance (RV) [address] [facility] Lead Impedance High Voltage 60 ohm [facility] Lead1 Mfg MDT [facility] Lead2 Mfg MDT [facility] Lead3 Mfg GDT [facility] Location LV [facility] Location RA [facility] Location RV [facility] Lower Rate (bpm) 80 {beats}/min [facility] LV PACING % 0 % [facility] Max Sensor Rate (bpm) 90 {beats}/min [facility] MDT_PROG_TACHY_ZONE_DE TECTIONS_STATUS ENABLED [facility] Model [id number] Viva XT LEASING ASSISTANT-D [facility] Model 4196 Attain Ability MRI SureScan [facility] Model 5076 CapSureFix Novus [facility] Model 0144 [employer] Endurance Rx [facility] Pacing Mode DDDR [facility] Serial Number [id number] [facility] Serial Number [id number] [facility] Serial Number [id number] [facility] Serial Number [id number] [facility] Test Charge Energy 18 J [facility] Test Charge Time 4.464 [facility] Therapy Status (Vent) Enabled [facility] Thresh RA Capture Amplitude (volts) 0.625 V [facility] Thresh RA Capture Duration (ms) 0.4 ms [facility] Thresh RA Sensing Amplitude (mvolts) 2 mV [facility] Thresh RV Capture Amplitude (VOLTS) 1.375 V [facility] Thresh RV Capture Duration (MS) 0.4 ms [facility] Thresh RV Sensing Amplitude (MVOLTS) 10.375 mV [facility] Tracking Rate (bpm) 90 {beats}/min [facility] VF Zone Detection Interval 450 ms [facility] VF Zone Therapy Configuration 2 ATP(s) + 0 Shock(s) [facility] Office Visit (Cardiology)on 04-24-2022 Follow-up visit [...] Pacemaker Interrogation; Status:Active - Retrospective Authorization; Requested for:24Apr2022; Health Maintenance Renew: Isosorbide Mononitrate ER 30 MG Oral Tablet Extended Release 24 Hour; TAKE 1 TABLET DAILY Avoid alcoholic beverages.; Status:Complete - Retrospective Authorization; Done: [id number] Avoid foods and beverages that contain caffeine.; Status:Complete - Retrospective Authorization; Done: [id number] Begin or continue regular aerobic exercise. Gradually work up to at least 3 sessions of 30 minutes of exercise a week.; Status:Complete - Retrospective Authorization; Done: 24Apr2022 Diets that are low in carbohydrates and high in protein are very popular for weight loss.; Status:Complete - Retrospective Authorization; Done: [id number] Eat a low fat and low cholesterol diet.; Status:Complete - Retrospective Authorization; Done: [id number] Please bring all medicines, vitamins, and herbal supplements with you when you come to the office.; Status:Complete - Retrospective Authorization; Done: [id number] Restrict the salt in your diet by avoiding highly salted foods.; Status:Complete - Retrospective Authorization; Done: [id number] Health Maintenance, Overweight with body mass index (BMI) of 29 to 29.9 in adult Losing just 5 to 10 pounds may lower your risk of health problems.; Status:Complete - Retrospective Authorization; Done: [id number] SocHx: Former smoker Tobacco Use Screening; Status:Complete; Done: [id number] Patient Instructions Follow up with Dr. Nunez in 6 months and 1 year with a device check. Drink plenty of water daily. Latesha Eaton CMA, am scribing for and in the presence of, Dr. Margareth Nunez, MA, FACC, FACP, [facility]. No list or bottles for comparison, patient or family member to call with any updates [phone] The provider reviewed the following test(s) and [...] for details. She has remote history of OR , cardiogenic shock, PCI circumflex and iABP, with persistent severe LV dysfunction. She later occluded her cicumflex. Years later, she had HF and severe MR and underwent mitral valve repair at [facility]. She had recurrent VT and atrial arrhythmias, and underwent several ablations and repeat percutaneous MVR at [facility]. After her MVR and ablation in July,, she had KALLI when then improved. She has had recurrent ICD shocks for atrial flutter. Personal review of ECG and cardiac data reviewed Outside records: EP study and successful ablation of atrial flutter. Multiple atrial tachycardias, possible left atrial tachycardia also noted and not targeted for ablation. December 2021. Discharge summary [facility] Oct 2021 Cardiology consult Oct 2021 ECG [...] heart failur (more content not included)... Normal [employer] Tobacco Screening.on 022 Fall risk assessment a) No falls within the last year [facility] 320 DO Work Phone: Tobacco use status [facility] a) Yes [facility] 320 DO Work Phone: Tobacco Screening. Yes [facility] 320 DO Work Phone: XR LSPINE 2_3 [...] JC BRAVO Date: 2022-04-24 07:14 Normal [facility] TRANSFERRINon 04-17-2022 Transferrin [Mass/Vol] 418 mg/dL Critically high 192-364 [facility] Comment on above: Performed By: #### T RANSFR #### [facility] Laboratory [address], [place] [address] Dr. Melissa Helm CBC AUTO DIFFon 04-16-2022 BASO # 0.2 103/ul Critically high 0.0-0.1 [facility] Comment on above: Performed By: #### C BC ####[facility] Yluygflwpz[address] [place], [place] [address]ZdDr. Melissa Helm Basophils/100 WBC (Bld) 1.2 % Normal 0.2-2.0 [facility] Comment on above: Performed By: #### C BC ####[facility] [address] [place] [phone]. Melissa Helm EO # 0.2 103/ul Normal 0.0-0.7 [facility] Comment on above: Performed By: #### C BC ####[facility] Hqvntyzrmb[address] [place], [place] [address]Dr. Melissa Volodymyr Eosinophils/100 WBC (Bld) 1.9 % Normal 0.9-7.0 [facility] Comment on above: Performed By: #### C BC ####[facility] Lmuuuoyrkm[address] [place], [place] [address]Dr. Melissa Volodymyr Erythrocyte distribution width (RBC) [Ratio] 22.6 % Critically high 11.0-15.0 [facility] Comment on above: Performed By: #### C BC ####[facility] Jiusztjqvy[address] [place], [place] [address]Dr. Melissa Helm Hematocrit (Bld) [Volume fraction] 39.2 % Normal 36.0-48.0 [facility] Comment on above: Performed By: #### C BC ####[facility] Jzunnjxysd[address] [place], [place] [address]Dr. Melissa Helm Hemoglobin (Bld) [Mass/Vol] 10.8 g/dL Critically low 12.0-16.0 [facility] Comment on above: Performed By: #### C BC ####[facility] Esvlmzkxlk[address] [place], [place] [address]Dr. Sophiadomingo Helm IG # 0.03 10e3/ul Normal 0.00-0.03 [facility] Comment on above: Performed By: #### C BC ####[facility] Wyhkgqtgxy[address] [place], [place] [address]Dr. Melissa Helm IG % 0.2 % Normal 0.0-0.5 [facility] Comment on above: Performed By: #### C BC ####[facility] Qsghkevtyf60[address] [place], [place] [address]Dr. Melissa Helm LYMPH # 2.5 103/ul Normal 1.2-3.8 [facility] Comment on above: Performed By: #### C BC ####[facility] Adiwxytzya50[address] [place], [place] [address]Dr. Melissa Helm Lymphocytes/100 WBC (Bld) 19.8 % Critically low 20.5-60.0 [facility] Comment on above: Performed By: #### C BC ####[facility] Xmalgpzmtf[address] [place] [address]DrTarun Helm MANUAL DIFF REQ NO Normal [facility] Comment on above: Performed By: #### C BC ####[facility] Jzqxxsbugp75[address] [place] [address]Dr. Melissa Helm MCH (RBC) [Entitic mass] 18.6 pg Critically low 26.7-34.0 [facility] Comment on above: Performed By: #### C BC ####[facility] Uzsfyvjbtn4[address] [place], [place] [address]DrTarun Helm MCHC (RBC) [Mass/Vol] 27.6 g/dL Critically low 29.9-35.2 [facility] Comment on above: Performed By: #### C BC ####[facility] Ucvnwrtibb30[address] [place], [place] [address]DrTarun Helm MCV (RBC) [Entitic vol] 67.4 fL Critically low 81.0-99.0 [facility] Comment on above: Performed By: #### C BC ####[facility] Ggzddokltn[address] [place], [place] [address]DrTarun Helm MONO # 1.2 103/ul Critically high 0.3-0.8 [facility] Comment on above: Performed By: #### C BC ####[facility] Jjsbxgxend3886[address] [place], [place] [address]DrTarun Helm Monocytes/100 WBC (Bld) 10.0 % Normal 1.7-12.0 [facility] Comment on above: Performed By: #### C BC ####[facility] Agbedscyoq350[address] [place], [place] [address]DrTarun Helm NEUT # 8.3 103/ul Critically high 1.4-6.5 [facility] Comment on above: Performed By: #### C BC ####[facility] Wikmaejfom7139[address] [place], [place] [address]DrTarun Helm Neutrophils/100 WBC (Bld) 66.9 % Normal 43.0-75.0 [facility] Comment on above: Performed By: #### C BC ####[facility] Tktyzqohou60[address] [place] [phone]. Melissa Helm PLT 235 103/ul Normal 150-450 [facility] Comment on above: Performed By: #### C BC ####[facility] Jsakgfpemh[address] [place] [phone]. Melissa Helm RBC 5.82 106/ul Critically high 4.20-5.40 [facility] Comment on above: Performed By: #### C BC ####[facility] Hrmcqglbue80[address] [place] [address]Dr. Melissa Helm WBC 12.4 103/ul Critically high 4.0-11.0 [facility] Comment on above: Performed By: #### C BC ####[facility] Pzdztdgvys[address] [place], [place] [address]Dr. Melissa Helm FERRITINon 04-16-2022 Ferritin [Mass/Vol] 27.0 ng/mL Normal 8.0-252.0 [facility] [place] [facility] Comment on above: Performed By: #### F ETIBC, FERR ####[facility] Ykfgzfrjzv[address] [place], [place] [address]Dr. Melissa Helm FREE T3on 04-16-2022 FREE T3 3.09 pg/mlL Normal 2.18-3.98 [facility] Comment on above: Performed By: #### C MP, FT3, LIPID, TSH ####[facility] Lavalwatog[address] [place], [place] [address]Dr. Melissa Helm IRON AND TIBCon 04-16-2022 % SATURATION 5.4 % Normal [facility] Comment on above: Performed By: #### F ETIBC, FERR ####[facility] Turwckwtkt[address] [place], [place] [address]Dr. Melissa Helm Iron [Mass/Vol] 26.0 ug/dL Critically low 50.0-170.0 [facility] [place] [facility] Comment on above: Performed By: #### F ETIBC, FERR ####[facility] Verrgdqmhi[address] [place] [phone]. Melissa Helm TIBC DIRECT 483.0 ug/dL Critically high 250.0-450. 0 [facility] Comment on above: Performed By: #### F ETIBC, FERR ####[facility] Xrqfnuqizz[address] [place] [phone]. Melissa Helm LIPID PROFILEon 04-16-2022 CHOL-HDL RATIO NORM SEE BELOW Normal [facility] Comment on above: Result Comment: 3.3 - 4.4 LOW RISK 4.4 - 7.1 AVERAGE RISK 7.1 - 11.0 MODERATE RISK >11.0 HIGH RISK Performed By: #### C MP, FT3, LIPID, TSH ####[facility] Qytrbyxezu36[address] [place] [phone]. Sophialan Helm Cholesterol [Mass/Vol] 131 mg/dL Normal <=200 Th [facility] Comment on above: Performed By: #### C MP, FT3, LIPID, TSH ####[facility] W[address]rtlssk[address] [place] [address]Dr. Sophialan Helm Cholesterol in HDL [Mass/Vol] 51 mg/dL Normal 40-60 [facility] Comment on above: Performed By: #### C MP, FT3, LIPID, TSH ####[facility] Ubgqribhou[address] [place] [phone]. Sophialan Helm Cholesterol in LDL [Mass/Vol] 54.0 mg/dL Normal [facility] Comment on above: Performed By: #### C MP, FT3, LIPID, TSH ####[facility] Ikpvwlffgy[address] [place] [phone]. Sophialan Helm Cholesterol.total/Chol esterol in HDL [Mass ratio] 2.6 {ratio} Normal [facility] Comment on above: Performed By: #### C MP, FT3, LIPID, TSH ####[facility] Pskxvhnhpp[address] [place] [phone]. Yilan Helm HDL NORMAL > or = 60 mg/dl - LO W CARDIOVASCULAR RISK <40 mg/dl - HIGH CARDIOVASCULAR RISK Normal [facility] Comment on above: Performed By: #### C MP, FT3, LIPID, TSH ####[facility] Dtjgpqiejo[address] [place] [address]Dr. Melissa Helm LDL CALC NORMAL SEE BELOW Normal [facility] Comment on above: Result Comment: <100 mg/dl OPTIMAL 100 - 129 mg/dl NEAR OR ABOVE OPTIMAL 130 - 159 mg/dl BORDERLINE HIGH 160 - 189 mg/dl HIGH >190 mg/dl VERY HIGH Performed By: #### C MP, FT3, LIPID, TSH ####[facility] Zcrewyuzxq[address] [place] [address]Dr. Melissa Helm Triglyceride [Mass/Vol] 130 mg/dL Normal <=150 [facility] Comment on above: Performed By: #### C MP, FT3, LIPID, TSH ####[facility] Dzw[address]dpmlo[address] [place] [address]Dr. Melissa Helm VLDL CALC 26.0 mg/dL Normal [facility] Comment on above: Performed By: #### C MP, FT3, LIPID, TSH ####[facility] Pqypfmonyv[address] [place] [address]Dr. Melissa Helm PROF 14(COMP METB)on 022 Albumin [Mass/Vol] 4.0 g/dL Normal 3.4-5.0 [facility] Comment on above: Performed By: #### C MP, FT3, LIPID, TSH ####[facility] Uhshamuonh[address] [place] [address]Dr. Melissa Helm Albumin/Globulin [Mass ratio] 0.9 {ratio} Normal [facility] Comment on above: Performed By: #### C MP, FT3, LIPID, TSH ####[facility] Bynhgmoopz[address] [place] [address]Dr. Melissa Helm ALP [Catalytic activity/Vol] 263 U/L Critically high 46-116 [facility] Comment on above: Performed By: #### C MP, FT3, LIPID, TSH ####[facility] Vkqjkjzyxd4[address] [place] [address]Dr. Melissa Helm ALT [Catalytic activity/Vol] 9 U/L Critically low 14-59 [facility] Comment on above: Performed By: #### C MP, FT3, LIPID, TSH ####[facility] Twnxzmlvqq9543 [place] [address]Dr. Melissa Helm Anion gap [Moles/Vol] 14.7 mmol/L Normal Th e [facility] Comment on above: Performed By: #### C MP, FT3, LIPID, TSH ####[facility] Nhvlphleza[address] [place] [address]Dr. Melissa Helm AST [Catalytic activity/Vol] 15 U/L Normal 15-37 [facility] Comment on above: Performed By: #### C MP, FT3, LIPID, TSH ####[facility] Eoenpmdekz22[address] [place] [address]Dr. Melissa Helm Bilirubin [Mass/Vol] 0.4 mg/dL Normal 0.2-1.0 [facility] Comment on above: Performed By: #### C MP, FT3, LIPID, TSH ####[facility] Grnvlisedg[address] [place], [place] [address]Dr. Melissa Helm Calcium [Mass/Vol] 9.1 mg/dL Normal 8.5-10.1 [facility] Comment on above: Performed By: #### C MP, FT3, LIPID, TSH ####[facility] Mvceyhfatc[address] [place] [address]Dr. Melissa Helm Chloride [Moles/Vol] 98 mmol/L Normal 98-107 [facility] Comment on above: Performed By: #### C MP, FT3, LIPID, TSH ####[facility] Ctofykmzeb[address] [place] [address]Dr. Melissa Helm CO2 [Moles/Vol] 27.5 mmol/L Normal 21.0-32.0 [facility] Comment on above: Performed By: #### C MP, FT3, LIPID, TSH ####[facility] Euzinebuee[address] [place] [address]Dr. Melissa Helm Creatinine [Mass/Vol] 1.08 mg/dL Critically high 0.55-1.02 [facility] Comment on above: Performed By: #### C MP, FT3, LIPID, TSH ####[facility] Kchodnhoiy[address] [place] [address]Dr. Melissa Helm EGFR-AF TUNISIAN >60 Normal >=60 [facility] Comment on above: Performed By: #### C MP, FT3, LIPID, TSH ####[facility] Jxfqxrlvwz33[address] [place] [address]Dr. Melissa Helm EGFR-NON AF TUNISIAN 53 mL/min/1.73m2 Critically low >=60 [facility] Comment on above: Performed By: #### C MP, FT3, LIPID, TSH ####[facility] Egashiiojm9606 [place] [address]Dr. Melissa Helm Globulin (S) [Mass/Vol] 4.3 g/dL Normal [facility] Comment on above: Performed By: #### C MP, FT3, LIPID, TSH ####[facility] Hjykzukqfu[address] [place] [address]Dr. Melissa Helm Glucose [Mass/Vol] 80 mg/dL Normal 74-106 [facility] Comment on above: Performed By: #### C MP, FT3, LIPID, TSH ####[facility] Cjglnlydzq[address] [place], [place] [address]Dr. Melissa Helm Potassium [Moles/Vol] 3.2 mmol/L Critically low 3.5-5.1 [facility] Comment on above: Performed By: #### C MP, FT3, LIPID, TSH ####[facility] Dwidjvqwds5[address] [place] [address]Dr. Melissa Helm Protein [Mass/Vol] 8.3 g/dL Critically high 6.4-8.2 [facility] Comment on above: Performed By: #### C MP, FT3, LIPID, TSH ####[facility] Frbfxxinel[address] [place], [place] [address]Dr. Melissa Helm Sodium [Moles/Vol] 137 mmol/L Normal 136-145 [facility] Comment on above: Performed By: #### C MP, FT3, LIPID, TSH ####[facility] Ltoceteuzf[address] [place], [place] [address]Dr. Melissa Helm Urea nitrogen [Mass/Vol] 22.0 mg/dL Critically high 7.0-18.0 [facility] Comment on above: Performed By: #### C MP, FT3, LIPID, TSH ####[facility] Srvpxltaxk8986 [place], [place] [address]Cm. Melissa Helm Urea nitrogen/Creatinine [Mass ratio] 20.4 mg/mg Normal [facility] Comment on above: Performed By: #### C MP, FT3, LIPID, TSH ####[facility] Uxcjqibrqi0699 [place], [place] [address]Sv. Melissa Helm TSHon 04-16-2022 TSH 30.570 uIU/mL Critically high 0.358-3.74 0 [facility] Comment on above: Performed By: #### C MP, FT3, LIPID, TSH ####[facility] Pxllzonimp45[address] [place] [id number]. Melissa Helm ICD REMOTE CHECKon 2 AV Delay Adaptive Paced Minimum (ms) 350 ms [facility] AV Delay Adaptive Rate Maximum (bpm) 90 {beats}/min [facility] AV Delay Adaptive Rate Minimum (bpm) 75 {beats}/min [facility] AV Delay Adaptive Sensed Minimum (ms) 250 ms [facility] AV Delay Adaptive Status ENABLED [facility] AV Delay Paced (ms) [address] [facility] AV Delay Sensed (ms) 70 ms [facility] Battery Voltage 2.87 V [facility] Scott LV Pacing Polarity BI [facility] Scott RA Pacing Amplitude (volts) 2 V [facility] Scott RA Pacing Polarity BI [facility] Scott RA Pacing Pulse Width (ms) 0.4 ms [facility] Scott RA Sensing Amplitude (mvolts) 0.3 mV [facility] Scott RA Sensing Blanking Period (ms) 150 ms [facility] Scott RA Sensing Polarity BI [facility] Scott RA Sensing Refractory Period (ms) 250 ms [facility] Scott RV Pacing Amplitude (volts) 3 V [facility] Scott RV Pacing Polarity BI [facility] Scott RV Pacing Pulse Width (ms) 0.4 ms [facility] Scott RV Sensing Amplitude (mvolts) 0.3 mV [facility] Scott RV Sensing Blanking Period (ms) 200 ms [facility] Scott RV Sensing Polarity BI [facility] Detection Configuration (Vent) 2 - Zone [facility] FastVT_Detection Interval 450 ms [facility] FastVT_Therapy Configuration 2 ATP(s) + 0 Shock(s) [facility] ICD AFIB DetectionStatus DISABLED [facility] ICD ATAF DetectionInterval ms 450 ms [facility] ICD ATAF DetectionStatus ENABLED [facility] ICD ATAF TherapyConfiguration 2 ATP(s) + 0 Shock(s) [facility] ICD FastVT DetectionStatus ENABLED [facility] ICD-ADLRATE_BPM 85 {beats}/min [facility] ICD-AMS EPISODES 133 {beats}/min [facility] ICD-ATP Episodes (Vent) 0 [facility] ICD-ATRIALFIBRILLATION 339 Cl [facility] ICD-ATRIALTACHYCARDIA 339 [facility] ICD-ATRIALTACHYCARDIA 5 [facility] ICD-ATRIALTACHYCARDIA 7 [facility] ICD-Counters Cleared Date 09/23/2016 [facility] ICD-Device Mfg MDT [facility] ICD-Fast Ventricular Tachycardia 7 [facility] ICD-LEADIMPEDANCEATRIA L 342 ohm [facility] ICD-Percent Pacing (Atrial) 58.38 % [facility] ICD-Percent Pacing (Vent) 88.05 % [facility] ICD-PMT Intervention ENABLED [facility] ICD-PVC Intervention ENABLED [facility] ICD-Rate Modulation Acceleration Reaction 30 s [facility] ICD-Rate Modulation Deceleration Exercise [facility] ICD-Rate Modulation [place] 3 [facility] ICD-Rate Modulation Threshold MediumHigh [facility] ICD-Shocks Aborted (Vent) 0 [facility] RGN-HGHUNZ-[id number] 0 [facility] ICD-SHOCKSABORTED [address] [facility] ICD-SHOCKSDELIVEREDVEN TRICULAR 0 [facility] ICD-Ventricular Fibrillation 0 [facility] Implant Date 07/03/2005 [facility] Implant Date 11/30/2002 [facility] Lead Impedance (LV) [address] [facility] Lead Impedance (RV) [address] [facility] Lead Impedance High Voltage 57 ohm [facility] Lead1 Mfg MDT [facility] Lead2 Mfg MDT [facility] Lead3 Mfg GDT [facility] Location LV [facility] Location RA [facility] Location RV [facility] Lower Rate (bpm) 80 {beats}/min [facility] LV PACING % 0 % [facility] Max Sensor Rate (bpm) 90 {beats}/min [facility] MDT_PROG_TACHY_ZONE_DE TECTIONS_STATUS ENABLED [facility] Model [id number] Viva XT LEASING ASSISTANT-D [facility] Model 4196 Attain Ability MRI SureScan [facility] Model 5076 CapSureFix Novus [facility] Model 0144 [employer] Rx [facility] Pacing Mode DDDR [facility] Serial Number [id number] [facility] Serial Number [id number] [facility] Serial Number [id number] [facility] Serial Number [id number] [facility] Test Charge Energy 18 J [facility] Test Charge Time 4.354 [facility] Therapy Status (Vent) Enabled [facility] Thresh RA Capture Amplitude (volts) 0.625 V [facility] Thresh RA Capture Duration (ms) 0.4 ms [facility] Thresh RA Sensing Amplitude (mvolts) 2 mV [facility] Thresh RV Capture Amplitude (VOLTS) 1.5 V [facility] Thresh RV Capture Duration (MS) 0.4 ms [facility] Thresh RV Sensing Amplitude (MVOLTS) 11.625 mV [facility] Tracking Rate (bpm) 90 {beats}/min [facility] VF Zone Detection Interval 450 ms [facility] VF Zone Therapy Configuration 2 ATP(s) + 0 Shock(s) [facility] No Panel Informationon 04-12 BLANK _ [facility] ICD-ATRIALTACHYCARDIA 0 [facility] ICD-Fast Ventricular Tachycardia 0 [facility] Implant Date 09/23/2016 [facility] COAGULATION SCREENon 022 aPTT Coag (Bld) [Time] 29 s Normal 26 - 39 [facility] Comment on above: Result Comment: THE APTT IS NO LONGER USED FOR MONITORING UNFRACTIONATED HEPARIN THERAPY. FOR MONITORING HEPARIN THERAPY, USE THE HEPARIN ASSAY. Performed By: #### C OAGS #### [address] [id number] PT Coag (PPP) [Time] 16.1 s High 9.8 - 13.4 [facility] Comment on above: Performed By: #### C OAGS #### [address] [id number] PT, INR 1.4 High 0.9 - 1.1 [facility] Comment on above: Performed By: #### C OAGS #### [address] [id number] Discharge [id number] Discharge Profile2 Discharge Orders: DNAR: Code Status at Discharge: Full Code Appointments: Follow-Up Appointment 02: Physician/Dept/ServiceDrTarun Nunez Reason for ReferralFollow-up Scheduled Date/[id number] 13:[facility] [phone] Electronic Signatures: Axel Rangel (COOR) (Signed 21-Jan-2022 09:13) Authored: Discharge Orders, Appointments, Gold Form - [employer] Operator Summary Last Updated: 21-Jan-2022 09:13 by Axel Rangel (COOR) Normal [facility] Laboratory - Coagulationon 0 01-21-2022 aPTT Coag (PPP) [Time] 29 s 26 - [address] Work Phone: Comment on above: THE APTT IS NO LONGE R USED FOR MONITORING UNFRACTIONATED HEPARIN THERAPY. FOR MONITORING HEPARIN THERAPY, USE THE HEPARIN ASSAY. INR Coag (PPP) [Relative time] 1.4 {INR} above high threshold 0.9 - 1.[address] Work Phone: PT Coag (PPP) [Time] 16.1 s above high threshold 9.8 - 13.[address] Work Phone: No Panel Informationon 01-21 [email or web address] ?[email or web address]=[id number]&Date =21-01-2022&Time=09%3a40% 3a37%3a00&TestType=ECG&Si te=11&OutputType=PDF&Ext= PDF [address] Work Phone: Atrial-paced rhythm [facility] [address] [place] Work Phone: [phone] [facility] [address] [place] Work Phone: [phone] 1 [facility] [address] [place] Work Phone: [phone] 1 [facility] [address] [place] Work Phone: [phone] 1 [facility] [address] [place] Work Phone: [phone] 1 [facility] [address] [place] Work Phone: [phone] 1 [facility] [address] [place] Work Phone: [phone] 1 [facility] [address] [place] Work Phone: [phone] 1 [facility] [address] [place] Work Phone: [phone] 1 [facility] [address] [place] Work Phone: [phone] 1 [facility] [address] [place] Work Phone: [phone] 1 [facility] [address] [place] Work Phone: [phone] 1 [facility] [address] [place] Work Phone: [phone] 1 [facility] [address] [place] Work Phone: [phone] 1 [facility] [address] [place] Work Phone: [phone] 1 [facility] [address] [place] Work Phone: [phone] [email or web address] ?[email or web address]&Date =21-01-2022&Time=17%3a39% 3a41%3a00&TestType=ECG&Si te=11&OutputType=PDF&Ext= PDF [facility] [address] [place] Work Phone: [phone] Ventricular-paced rhythm [facility] [address] [place] Work Phone: [phone] Abnormal [facility] [address] [place] Work Phone: [phone] 1 [facility] [address] [place] Work Phone: [phone] 1 [facility] [address] [place] Work Phone: [phone] 1 [facility] [address] [place] Work Phone: [phone] 1 [facility] [address] [place] Work Phone: [phone] 1 [facility] [address] [place] Work Phone: [phone] 1 [facility] [address] [place] Work Phone: [phone] 1 [facility] [address] [place] Work Phone: [phone] 1 [facility] [address] [place] Work Phone: [phone] 1 [facility] [facility] [address] [place] Work Phone: [phone] 1 [facility] [address] [place] Work Phone: [phone] 1 [facility] [address] [place] Work Phone: [phone] Order Reconciliationon 01-21 Order Reconciliation Page 1 Discharge Reconciliation Document Reconciliation Type: Discharge requested on behalf of Yessi Miller (Advanced Practice Nurse) done by Yessi Miller (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) Discharge - Reconciliation: 21-Jan-2022 16:48 by: Yessi Miller (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) Home Medications EnteredHOME MEDICATIONS AT DISCHARGE DateReconciliation [...] continued as atorvastatin 80 mg oral tablet mdxidvwthf-tapl-vqfklqhm 50-300-40mg 1 cap(s) orally 2 times a day 30-Dec-2021 10:27 ckiakmkfac-lofp-hhptzvzn 50-300-40mg 1 cap(s) orally 2 times a day 30-Dec-2021 10:27 nwvyhbjywn-vjfq-nzmcencx 50-300-40mg is continued as cbbpzvvlzz-vunw-orhxdrkw 50-300-40mg escitalopram 20 mg oral tablet 1 [...] mg oral delayed release capsule Potassium Chloride (Lzq-Uoqj-Rop M20) 20 mEq oral tablet, extended release 1 tab(s) orally once a day 30-Dec-2021 10:33 Potassium Chloride (Vnr-Vpyc-Fsq M20) 20 mEq oral tablet, extended release 1 tab(s) orally once a day 30-Dec-2021 10:33 Potassium Chloride (Qmq-Kalr-Gdt M20) 20 mEq oral tablet, extended release is continued as Potassium Chloride (Mok-Plyb-Wru M20) 20 mEq oral tablet, extended release [...] and modifie (more content not included)... [facility] Order Reconciliation Page 1 Admission Reconciliation Document Reconciliation Type: Observation requested on behalf of Yessi Miller (Advanced Practice Nurse) done by Yessi Miller (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) Observation - Reconciliation: 21-Jan-2022 16:52 by: Yessi Miller (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) Home MedicationsEnteredLast Dose TakenReconciled with current Order Reconciliation Comment/ Additional Information amiodarone 400 mg oral tablet 1 tab(s) orally once a gcf14-Tun-169021-Jan-2022 AM Amiodarone Tablet (CORDARONE; PACERONE)DOSE = 400 [...] oral tablet 1 tab(s) orally once a fah77-Dkv-690421-Jan-2022 PM Atorvastatin Tablet (LIPITOR)DOSE = 80 mg Oral Daily atorvastatin 80 mg oral tablet continued as the inpatient order Atorvastatin yxryufuptu-ptld-hxhbccbm 50-300-40mg 1 cap(s) orally 2 times a fxp30-Hjo-878421-Jan-2022 Reviewed and Held escitalopram 20 mg oral tablet 1 tab(s) orally once a rau34-Zfq-096921-Jan-2022 AM Escitalopram Tablet (LEXAPRO)DOSE = 20 mg Oral Daily escitalopram 20 mg oral tablet continued as the inpatient order Escitalopram KlonoPIN Wafer 0.5 mg oral tablet, disintegrating 1 tab(s) orally 3 times daily [id number] PM clonazePAM (KLONOPIN) TabletDOSE = 0.5 mg Oral Every 8 HoursKlonoPIN Wafer 0.5 mg oral tablet, disintegrating continued as the inpatient order clonazePAM (KLONOPIN) Mag-Ox 400 oral tablet 1 tab(s) orally 2 times a ixe08-Rfz-448969-Hil-0784 AM Magnesium Oxide Tablet (Mag-Ox)DOSE = 400 mg Oral DailyMag-Ox 400 oral tablet continued as the inpatient order Magnesium Oxide Metoprolol Succinate ER 100 mg oral tablet, extended release 1 tab(s) orally once a uas55-Bnh-517972-Ljt-1432 PM Metoprolol Succinate Extended Release Tablet, Extended Release (TOPROL-XL)DOSE = 100 mg Oral DailyMetoprolol Succinate ER 100 mg oral tablet, extended release continued as the inpatient order Metoprolol Succinate Extended Release Multiple Vitamins oral tablet, dispersible 1 tab(s) orally once a day [id number] Reviewed and Held Nitrostat 0.4 mg sublingual tablet 1 tab(s) sublingual every 5 minutes, As Qxprle62-[id number]-1733RLPQXSD UNKNOWN Nitroglycerin SubLingual Tablet (NITROSTAT)DOSE = 0.4 mg SubLingual Every 5 Minutes, PRN AnginaNitrostat 0.4 mg sublingual tablet continued as the inpatient order Nitroglycerin SubLingual omeprazole 40 mg oral delayed release capsule 1 cap(s) orally once a day [id number] AM Pantoprazole Enteric Coated Tablet (PROTONIX)DOSE = 40 mg Oral DailyNotes from Pharmacy: Substitution for Omeprazole 40 mg Oral Capsule Dailyomeprazole 40 mg oral delayed release capsule continued as the inpatient order Pantoprazole Potassium Chloride (Gas-Olsi-Iaq M20) 20 mEq oral tablet, extended release 1 tab(s) orally once a wuf76-Nkf-493955-Gbb-9916 AM Potassium Chloride Extended Release Tablet, Extended ReleaseDOSE = 20 mEq Oral DailyPotassium Chloride (Wze-Gjmr-Vvg M20) 20 mEq oral tablet, extended release continued as the inpatient order Potassium Chloride Extended Release rOPINIRole 0.25 mg oral tablet 3 tab(s) orally once a day (at bedtime) [id number]-Kan-3970 PM rOPINIRole (REQUIP) TabletDOSE = 0.75 mg Oral At BedtimerOPINIRole 0.25 mg oral tablet continued as the inpatient order rOPINIRole (REQUIP) torsemide 20 mg oral tablet 1 tab(s) orally once a jqv86-Hlq-355350-Lff-9259 AM Torsemide Tablet (DEMADEX)DOSE = 20 mg Oral Dailytorsemide 20 mg oral tablet continued as the inpatient order Torsemide traZODone 50 mg oral tablet 1 tab(s) orally once a day (at bedtime), As Needed [id number]-[id number] PM traZODone Tablet (DESYREL)DOSE = 50 mg Oral At Bedtime, PRN InsomniatraZODone 50 mg oral tablet continued as the inpatient order traZODone warfarin 5 mg oral tablet 1 tab(s) orally once a day. Resume 01/22/2022. [id number] 8:00 AM Reviewed and Held Additional Current [...] mL Run at: 10 mL/hr IntraVenous [facility] Patient Profile - Preop v3on 01-21-2022 Patient Profile - Preop v3 Patient Profile - Preop: Initial Info: Patient DemographicsName: ESSENCE VINCENT Date: 1970 Address: [facility] [place] [address] Date/Time [id number] Primary Phone [phone] How to be AddressedSherry Spoken Language PreferredEnglish Source of Informationpatient Stated Reason for AdmissionTEE/EP study and ablation Primary Contact Name and NumberDarian Singer (significant other) [phone] Limitations on Visitors/Phone Callsnone Medications Brought to Hospitalno General Health: Weight in kg76.6 kilogram(s) Weight in mtz522.8 pound(s) Weight Methodactual (measured) Scale Typestanding Height [...] disease; dyslipidemia Cardiovascular Management Strategiesroutine screening; medical education specialist; medication therapy Barriers to Managing Healthnone Relationship/Environ: Lives Withalone Living Arrangementsapartment Resource/Environmental Concernsnone [place] Anticipated at Transitionnone Tobacco Use: Tobacco Useno Pre-op Checklist: Arrival [id number] Arrival Time09:21 Procedure TypeTEE/EPS/Ablation NPOyes Last Food Qcmpbm86-Opf-8781 23:00 Last Clear Fluid Lqvhhq69-Ltu-4881 07:00 ID Band On Patientpatient ID (name), [...] Updated: 21-Jan-2022 11:18 by Nannette Alvarez (ELZA) [facility] Transesophageal Echoon 01-21 Transesophageal Echo [place] [id number] TRANSESOPHAGEAL ECHOCARDIOGRAM REPORT Patient Name: ESSENCE Gamez Mary Physician: [id number] Soco Bhardwaj MD [facility] Study Date: 01/21/2022 Referring [id number] SOCO BHARDWAJ Physician: MRN/PID: [id number] PCP: Accession/Order#: [id number] Department 2S CathLab Location: Date of : 1970 Fellow: Gender: F Nurse: Yolanda Farrell RN Admit Date: 01/21/2022 Reproduction Artist: Trina Obregon [facility] Admission Status: Outpatient Additional Staff: Height: 157.00 cm CC Report to: Weight: 76.00 kg Study Type: Transesophageal Echo BSA: 1.77 m2 Blood Pressure: 128 /63 mmHg Diagnosis/ICD: Z01.810-Encounter for preprocedural cardiovascular examination Indication: PRE-EP Procedure/CPT: JOVITA Complete-[id number]; Moderate Sedation Services initial 15 minutes patient >5 years-68416 Study Detail: The following Echo studies were [...] RV Syst Pressure: 40.5 mmHg (< 30mmHg) [id number] Soco Bhardwaj MD Electronically signed on 01/21/2022 at 2:53:25 PM Final [facility] Transesophageal Echo MP-N orth [facility] [address] [place] Work Phone: ICD REMOTE CHECKon 2 AV Delay Adaptive Paced Minimum (ms) 350 ms [facility] AV Delay Adaptive Rate Maximum (bpm) 90 {beats}/min [facility] AV Delay Adaptive Rate Minimum (bpm) 75 {beats}/min [facility] AV Delay Adaptive Sensed Minimum (ms) 250 ms [facility] AV Delay Adaptive Status ENABLED [facility] AV Delay Paced (ms) [address] [facility] AV Delay Sensed (ms) 70 ms [facility] Battery Voltage 2.9 V [facility] Scott LV Pacing Polarity BI [facility] Scott RA Pacing Amplitude (volts) 2 V [facility] Scott RA Pacing Polarity BI [facility] Scott RA Pacing Pulse Width (ms) 0.4 ms [facility] Scott RA Sensing Amplitude (mvolts) 0.3 mV [facility] Scott RA Sensing Blanking Period (ms) 150 ms [facility] Scott RA Sensing Polarity BI [facility] Scott RA Sensing Refractory Period (ms) 250 ms [facility] Soctt RV Pacing Amplitude (volts) 3 V [facility] Scott RV Pacing Polarity BI [facility] Scott RV Pacing Pulse Width (ms) 0.4 ms [facility] Scott RV Sensing Amplitude (mvolts) 0.3 mV [facility] Scott RV Sensing Blanking Period (ms) 200 ms [facility] Scott RV Sensing Polarity BI [facility] Detection Configuration (Vent) 2 - Zone [facility] FastVT_Detection Interval 450 ms [facility] FastVT_Therapy Configuration 2 ATP(s) + 0 Shock(s) [facility] ICD ATAF DetectionInterval ms 450 ms [facility] ICD ATAF DetectionStatus ENABLED [facility] ICD ATAF TherapyConfiguration 2 ATP(s) + 0 Shock(s) [facility] ICD FastVT DetectionStatus ENABLED [facility] ICD-ADLRATE_BPM 85 {beats}/min [facility] ICD-AMS EPISODES 133 {beats}/min [facility] ICD-ATP Episodes (Vent) 0 [facility] ICD-ATRIALFIBRILLATION 2063 Cl [facility] ICD-ATRIALTACHYCARDIA 2063 [facility] ICD-ATRIALTACHYCARDIA [facility] ICD-Counters Cleared Date 09/23/2016 [facility] ICD-Device Mfg MDT [facility] ICD-LEADIMPEDANCEATRIA L 304 ohm [facility] ICD-Percent Pacing (Atrial) 24.69 % [facility] ICD-Percent Pacing (Vent) 20.79 % [facility] ICD-PMT Intervention ENABLED [facility] ICD-PVC Intervention ENABLED [facility] ICD-Rate Modulation Acceleration Reaction 30 s [facility] ICD-Rate Modulation Deceleration Exercise [facility] ICD-Rate Modulation [place] 3 [facility] ICD-Rate Modulation Threshold MediumHigh [facility] ICD-Shocks Aborted (Vent) 0 [facility] [id number] 0 [facility] ICD-SHOCKSABORTED [address] [facility] ICD-SHOCKSDELIVEREDVEN TRICULAR 0 [facility] ICD-Ventricular Fibrillation 0 [facility] Implant Date 07/03/2005 [facility] Implant Date 11/30/2002 [facility] Lead Impedance (LV) [address] [facility] Lead Impedance (RV) [address] [facility] Lead Impedance High Voltage 54 ohm [facility] Lead1 Mfg MDT [facility] Lead2 Mfg MDT [facility] Lead3 Mfg GDT [facility] Location LV [facility] Location RA [facility] Location RV [facility] Lower Rate (bpm) 60 {beats}/min [facility] LV PACING % 0 % [facility] Max Sensor Rate (bpm) 90 {beats}/min [facility] MDT_PROG_TACHY_ZONE_DE TECTIONS_STATUS ENABLED [facility] Model [id number] Viva XT LEASING ASSISTANT-D [facility] Model 4196 Attain Ability MRI SureScan [facility] Model 5076 CapSureFix Novus [facility] Model 0144 [employer] Rx [facility] Pacing Mode DDDR [facility] Serial Number [id number] [facility] Serial Number [id number] [facility] Serial Number [id number] [facility] Serial Number [id number] [facility] Test Charge Energy 18 J [facility] Test Charge Time 4.324 [facility] Therapy Status (Vent) Enabled [facility] Thresh RA Capture Amplitude (volts) 0.625 V [facility] Thresh RA Capture Duration (ms) 0.4 ms [facility] Thresh RA Sensing Amplitude (mvolts) 2 mV [facility] Thresh RV Capture Amplitude (VOLTS) 1.375 V [facility] Thresh RV Capture Duration (MS) 0.4 ms [facility] Thresh RV Sensing Amplitude (MVOLTS) 10.125 mV [facility] Tracking Rate (bpm) 90 {beats}/min [facility] VF Zone Detection Interval 450 ms [facility] VF Zone Therapy Configuration 2 ATP(s) + 0 Shock(s) [facility] No Panel Informationon 01-14 BLANK _ [facility] ICD-ATRIALTACHYCARDIA 0 [facility] ICD-Fast Ventricular Tachycardia 0 [facility] Implant Date 09/23/2016 [facility] Prothrombin Time INRon 12-23 INR Coag (PPP) [Relative time] 3.3 {INR} [place] Other Prothrombin Time INR [facility] [address] Other Prothrombin Time INRon 12-09 INR Coag (PPP) [Relative time] 1.2 {INR} [place] Other Prothrombin Time INR [facility] [address] Other Office Visit (Cardiology)on 12-05-2021 Follow-up visit [...] Lab Procedures; Status:Active - Retrospective Authorization; Requested for:[id number]; Atrial flutter, unspecified type, Pre-operative cardiovascular examination Complete Blood Count + Differential; Status:Active - Retrospective Authorization; Requested for:[id number]; Complete Blood Count; Status:Active - Retrospective Authorization; Requested for:[id number]; CORONAVIRUS 2019 RNA BY PCR, SCREEN ASYMPTOMATIC AMBULATORY; Status:Hold For - Specimen/Data Collection,Retrospective Authorization; Requested for:[id number]; ? : Unknown RESIDENT IN CONGREGATE CARE SETTING? : Unknown ICU? : No HOSPITALIZED (OR PLANNED TO BE ADMITTED)? : No SYMPTOMATIC DEFINED BY CDC? : No EMPLOYED IN HEALTHCARE? : Unknown FIRST COVID NASAL SWAB TEST? : Unknown PT/INR; Status:Active - Retrospective Authorization; Requested for:[id number]; Atrial tachycardia Transesophageal Echo; Status:Hold For - Scheduling,Retrospective Authorization; Requested for:05Dec2021; Health Maintenance Avoid alcoholic beverages.; Status:Complete - Retrospective Authorization; Done: [id number] Avoid foods and beverages that contain caffeine.; Status:Complete - Retrospective Authorization; Done: [id number] Begin or continue regular aerobic exercise. Gradually work up to at least 3 sessions of 30 minutes of exercise a week.; Status:Complete - Retrospective Authorization; Done: 41Udf6198 Diets that are low in carbohydrates and high in protein are very popular for weight loss.; Status:Complete - Retrospective Authorization; Done: 92Vzf1574 Eat a low fat and low cholesterol diet.; Status:Complete - Retrospective Authorization; Done: 66Khk2312 Losing just 5 to 10 pounds may lower your risk of health problems.; Status:Complete - Retrospective Authorization; Done: [id number] Please bring all medicines, vitamins, and herbal supplements with you when you come to the office.; Status:Complete - Retrospective Authorization; Done: 47Eao3080 Restrict the salt in your diet by avoiding highly salted foods.; Status:Complete - Retrospective Authorization; Done: 21Uwd2359 SocHx: Former smoker Tobacco Use Screening; Status:Complete; Done: 73Rjp0430 Patient Instructions HOLD WARFARIN 4 DAYS PRIOR [...] Dr. Hoskins for possible ablation. Seen at [facility] 11/04/2021 Adult Risk Screening Initial Fall Risk Screening: ESSENCE has not fallen in the last 6 months. Tobacco Screening: ESSENCE does not use tobacco. Blood Pressure monitoring Blood Pressure Controlled, Systolic <130 mm Hg Blood Pressure Controlled, Diastolic < 80mm Hg History of Present Illness She is referred by Dr. Hoskins for evaluation for ablation of atrial flutter. She has remote history of OR , cardiogenic shock, PCI circumflex and iABP, with persistent severe LV dysfunction. She later occluded her cicumflex. Years later, she had HF and severe MR and underwent mitral valve repair at [facility]. She had recurrent VT and atrial arrhythmias, and underwent several ablations and repeat percutaneous MVR at [facility]. After her MVR and ablation in [...] syncope, palpitat (more content not included)... [facility] [employer] Tobacco Screening.on 022 Fall risk assessment a) No falls within the last year [facility] [employer] DO Work Phone: Tobacco use status CPHS b) No [facility] [employer] DO Work Phone: Tobacco Screening. Yes [facility] [employer] DO Work Phone: Prothrombin Time INRon 11-19 INR Coag (PPP) [Relative time] 1.59 {INR} [place] Other Prothrombin Time INR [facility] [employer] Other Prothrombin Time INRon 11-11 INR Coag (PPP) [Relative time] 2.2 {INR} [place] Other Prothrombin Time INR [facility] [employer] Other Prothrombin Time INRon 11-04 INR Coag (PPP) [Relative time] 1.1 {INR} [place] Other Prothrombin Time INR [facility] [employer] Other Prothrombin Time INRon 10-29 INR Coag (PPP) [Relative time] 1.22 {INR} [place] Other Prothrombin Time INR [facility] [employer] Other Prothrombin Time INRon 10-23 INR Coag (PPP) [Relative time] 1.29 {INR} [place] Other Prothrombin Time INR [facility] [employer] Other Activated partial thrombopla stin time (aPTT) in platelet poor plasma by coagulation aon 10-13-2021 aPTT Coag (PPP) [Time] 31.8 s 25.1-36.5 [facility] Amphetamine Screen Ql (U)on 10-13-2021 Amphetamines Ql (U) Negative Negative [facility] Automated erythrocytes count in urine sediment (number/area)on 10-13-2021 RBC Auto (Urine sed) [#/Area] 1-2 [HPF] [facility] Automated leukocytes count i n urine sediment (number/area)on 10-13-2021 WBC Auto (Urine sed) [#/Area] 20-49 [HPF] [facility] Automated urine hyaline cast s count (number/volume)on 10-13-2021 Hyaline casts Auto (U) [#/Vol] None seen [LPF] [facility] Barbiturates [Presence] in U rineon 10-13-2021 Barbiturates Ql (U) Negative Negative [facility] Basophils Auto (Bld) [#/Vol] on 10-13-2021 Basophils (Bld) [#/Vol] 0.1 10*3/uL 0.0-0.2 [facility] Basophils/100 WBC Auto (Bld) on 10-13-2021 Basophils/100 WBC (Bld) 0.9 % [facility] Benzodiazepines [Presence] i n Urineon 10-13-2021 Benzodiazepines Ql (U) Negative Negative [facility] Bilirubin Test strip Ql (U)o n 10-13-2021 Bilirubin Ql (U) Negative Negative [facility] Blood anisocytosis detection on 10-13-2021 Anisocytosis Ql (Bld) Marked [facility] Blood hemoglobin measurement (mass/volume)on 10-13-2021 Hemoglobin (Bld) [Mass/Vol] 11.7 g/dL 11.8-15.4 [facility] Blood leukocytes automated c ount (number/volume)on 10-13-2021 WBC (Bld) [#/Vol] 11.4 10*3/uL 4.5-11.0 [facility] Blood polychromasia detectio n by light microscopyon 10-13-2021 Polychromasia LM Ql (Bld) Slight [facility] Body fluid albumin measureme nt (mass/volume)on 10-13-2021 Albumin (Body fld) [Mass/Vol] 3.0 g/dL 3.2-5.5 [facility] COVID-19 SOFIAon 10-13-2021 SARS-CoV+SARS-CoV-2 (COVID-19) Ag IA.rapid Ql (Resp) Negative Negative [facility] Comment on above: This is a duplicate Maranda SARS Antigen (CAIT) result to be used for statistical tracking purpose only. Cannabinoids [Presence] in U rine by Screen methodon 10-13-2021 Cannabinoids Screen Ql (U) Positive Negative [facility] Comment on above: These are unconfirme d results and should not be used for legal purposes. Drug Cut-Off Concentration: AMPH 1000 ng/mL ALESSANDRO 200 ng/mL RHINA 200 ng/mL COCM 300 ng/mL OP 300 ng/mL PCP 25 ng/mL THC 20 ng/mL Casts typing in urine sedime nt by light microscopyon 10-13-2021 Casts LM Nom (Urine sed) None seen [LPF] None Seen [facility] Color Auto (U)on 10-13-2021 Color (U) Yellow Yellow [facility] Creatine kinase [Enzymatic a ctivity/volume] in Serum or Plasmaon 10-13-2021 CK [Catalytic activity/Vol] 61 U/L 22-269 [facility] Creatinine and Glomerular fi ltration rate.predicted panel (S/P/Bld)on 10-13-2021 Creatinine [Mass/Vol] 3.62 mg/dL 0.44-1.03 [facility] Digoxin [Mass/volume] in Ser um or Plasmaon 10-13-2021 Digoxin [Mass/Vol] 8.7 ng/mL 0.9-2.0 [facility] Comment on above: Critical valueresult calledat 1837 on 10/13/21Last dose: - Eosinophils Auto (Bld) [#/Vo l]on 10-13-2021 Eosinophils (Bld) [#/Vol] 0.0 10*3/uL 0.0-0.45 [facility] Eosinophils/100 WBC Auto (Bl d)on 10-13-2021 Eosinophils/100 WBC (Bld) 0.0 % [facility] Erythrocyte distribution wid th Auto (RBC) [Ratio]on 10-13-2021 Erythrocyte distribution width (RBC) [Ratio] 23.1 % 11.9-15.3 [facility] Estimated glomerular filtrat ion rate (GFR) non- Americanon 10-13-2021 GFR/1.73 sq M.predicted among non-blacks MDRD (S/P/Bld) [Vol rate/Area] 13 mL/Min [facility] Globulin Calc (S) [Mass/Vol] on 10-13-2021 Globulin (S) [Mass/Vol] 3.2 g/dL [facility] Haptoglobin [Mass/volume] in Serum or Plasmaon 10-13-2021 Haptoglobin [Mass/Vol] 175 mg/dL 37-246 Fi [facility] Hematocrit Auto (Bld) [Volum e fraction]on 10-13-2021 Hematocrit (Bld) [Volume fraction] 38.3 % 34.0-46.4 [facility] Hypochromia detectionon 09-30 Hypochromia Ql (Bld) Slight [facility] Ketones Auto test strip (U) [Mass/Vol]on 10-13-2021 Ketones (U) [Mass/Vol] Negative Negative Fi [facility] Laboratory - Chemistry and C hemistry - challengeon 10-13-2021 Natriuretic peptide B (Bld) [Mass/Vol] 279.0 pg/mL 5-100 [facility] Laboratory - Coagulationon 0 10-13-2021 PT Coag (PPP) [Time] 23.0 s 9.0-12.[address] [facility] Laboratory - Drug toxicology on 10-13-2021 Opiates Ql (U) Negative Negative [facility] Laboratory - Hematology and Cell countson 10-13-2021 Nucleated RBC/100 WBC (Bld) [Ratio] 0.1 % 0-0.5 [facility] Lactate dehydrogenase measur ement (enzymatic activity/volume)on 10-13-2021 LDH (Unsp spec) [Catalytic activity/Vol] 310 U/L 45-190 [facility] Lymphocytes Auto (Bld) [#/Vo l]on 10-13-2021 Lymphocytes (Bld) [#/Vol] 1.1 10*3/uL 1.00-4.8 [facility] Lymphocytes/100 WBC Auto (Bl d)on 10-13-2021 Lymphocytes/100 WBC (Bld) 9.5 % [facility] MCH Auto (RBC) [Entitic mass ]on 10-13-2021 MCH (RBC) [Entitic mass] 20.4 pg 24.7-34.3 [facility] MCHC Auto (RBC) [Mass/Vol]on 10-13-2021 MCHC (RBC) [Mass/Vol] 30.5 g/dL 32.0-35.0 [facility] MCV Auto (RBC) [Entitic vol] on 10-13-2021 MCV (RBC) [Entitic vol] 67.0 fL 80-100 [facility] Monocytes Auto (Bld) [#/Vol] on 10-13-2021 Monocytes (Bld) [#/Vol] 0.9 10*3/uL 0.0-0.8 [facility] Monocytes/100 WBC Auto (Bld) on 10-13-2021 Monocytes/100 WBC (Bld) 7.8 % [facility] Neutrophils Auto (Bld) [#/Vo l]on 10-13-2021 Neutrophils (Bld) [#/Vol] 9.3 10*3/uL 1.8-7.7 [facility] Neutrophils/100 WBC Auto (Bl d)on 10-13-2021 Neutrophils/100 WBC (Bld) 81.8 % [facility] Nitrite Test strip Ql (U)on 10-13-2021 Nitrite Ql (U) Negative Negative [facility] No Panel Informationon 10-13 Estimated GFR () 16 mL/Min [facility] Comment on above: GFR estimated refere nce range: According to KDOQI guidelines, <60 ml/min/1.73m2 is sufficient to diagnose a patient with chronic kidney disease. Microcytosis Moderate [facility] Pharmacy Creatinine Clearance (Chem 16.83 [facility] Platelet Estimate Decreased Normal [facility] Platelet Morphology Comment Normal Normal [facility] Schistocytes Slight [facility] Ovalocyte detectionon 2021 Ovalocytes LM Ql (Bld) Slight Fi relands [facility] Phencyclidine Screen Ql (U)o n 10-13-2021 Phencyclidine Ql (U) Negative Negative [facility] Platelet mean volume Auto (B ld) [Entitic vol]on 10-13-2021 Platelet mean volume (Bld) [Entitic vol] 9.0 fL 6.3-10.7 [facility] Platelet poor plasma interna tional normalized ratio (INR) by coagulation assay (relaton 10-13-2021 INR Coag (PPP) [Relative time] 2.0 {INR} [facility] Comment on above: INR Therapeutic [...] 10-13-2021 Platelets (Bld) [#/Vol] 29 10*3/uL 150-450 [facility] Comment on above: Results calledat 151 0 on 10/13/21 Protein Auto test strip (U) [Mass/Vol]on 10-13-2021 Protein (U) [Mass/Vol] Negative Negative Fi [facility] Protein [Mass/volume] in Ser um or Plasmaon 10-13-2021 Protein [Mass/Vol] 6.2 g/dL 6.1-7.9 [facility] RBC Auto (Bld) [#/Vol]on RBC (Bld) [#/Vol] 5.72 10*6/uL 3.60-5.00 [facility] RBC morphologyon 10-13-2021 RBC morphology finding Nom (Bld) N/A [facility] Serum or plasma alanine hernandez otransferase measurement without P-5'-P (enzymatic activion 10-13-2021 ALT No additional P-5'-P [Catalytic activity/Vol] 12 U/L 10-60 [facility] Serum or plasma albumin/glob ulin mass ratioon 10-13-2021 Albumin/Globulin [Mass ratio] 0.9 {ratio} [facility] Serum or plasma alkaline rosanna sphatase measurement (enzymatic activity/volume)on 10-13-2021 ALP [Catalytic activity/Vol] 147 U/L 32-92 [facility] Serum or plasma aspartate am inotransferase measurement (enzymatic activity/volume)on 10-13-2021 AST [Catalytic activity/Vol] 26 U/L 10-42 [facility] Serum or plasma calcium jackie urement (mass/volume)on 10-13-2021 Calcium [Mass/Vol] 8.2 mg/dL 8.2-10.2 [facility] Serum or plasma chloride jose antonio surement (moles/volume)on 10-13-2021 Chloride [Moles/Vol] 91 mmol/L 95-[address] [facility] Serum or plasma creatine kin ase MB (CKMB)/total creatine kinase (CK) ratio by calculaon 10-13-2021 CK.MB Calc [Catalytic fraction] 17.3 % 0.00-2.50 [facility] Serum or plasma creatine kin ase MB measurement (mass/volume)on 10-13-2021 CK.MB [Mass/Vol] 10.6 ng/mL 0.6-6.3 [facility] Serum or plasma glucose jackie urement (mass/volume)on 10-13-2021 Glucose [Mass/Vol] 98 mg/dL 70-100 [facility] Comment on above: ADA recommended refe rence rangeRandom Glucose Reference Range is dependent on time and content of last meal. Glucose of more than 200 mg/dL in a nonstressed, ambulatory subject supports the diagnosis of Diabetes Mellitus. Serum or plasma potassium me asurement (moles/volume)on 10-13-2021 Potassium [Moles/Vol] 3.3 mmol/L 3.5-5.1 [facility] Serum or plasma sodium measu rement (moles/volume)on 10-13-2021 Sodium [Moles/Vol] 130 mmol/L 136-146 [facility] Serum or plasma total biliru bin measurement (mass/volume)on 10-13-2021 Bilirubin [Mass/Vol] 0.6 mg/dL 0.3-1.[address] [facility] Serum or plasma total carbon dioxide measurement (moles/volume)on 10-13-2021 CO2 [Moles/Vol] 23.0 mmol/L 22.0-30.0 [facility] Serum or plasma urea nitroge n measurement (mass/volume)on 10-13-2021 Urea nitrogen [Mass/Vol] 51 mg/dL 9-23 [facility] Specific gravity Auto test s trip (U) [Rel density]on 10-13-2021 Specific gravity (U) [Rel density] 1.007 1.001-1.03 0 [facility] Squamous epithelial cells de tection in urine sediment by light microscopyon 10-13-2021 Epithelial cells.squamous LM Ql (Urine sed) 10-19 [HPF] [facility] Teardrop cell detectionon Dacrocytes LM Ql (Bld) Slight [facility] Trichomonas vaginalis detect ion in urine sediment by light microscopyon 10-13-2021 T. vaginalis LM Ql (Urine sed) 3-4 [HPF] None Seen [facility] Troponin I.cardiac [Mass/vol ume] in Serum or Plasma by High sensitivity methodon 10-13-2021 Troponin I.cardiac High sensitivity method [Mass/Vol] 139 pg/mL 0-15 [facility] Comment on above: Critical valueresult calledat 1909 on 10/13/21 Urine bacteria detection by automated methodon 10-13-2021 Bacteria Auto Ql (U) None seen None Seen [facility] Urine clarity by refractomet ry automatedon 10-13-2021 Clarity Refractometry automated (U) Cloudy Clear [facility] Urine cocaine detectionon Cocaine Ql (U) Negative Negative [facility] Urine glucose measurement by automated test strip (mass/volume)on 10-13-2021 Glucose Auto test strip (U) [Mass/Vol] Normal mg/dL Normal [facility] Urine hemoglobin detection b y automated test stripon 10-13-2021 Hemoglobin Auto test strip Ql (U) Trace Negative [facility] Urine lactic acid measuremen ton 10-13-2021 Lactate (U) [Moles/Vol] 1.5 mmol/L [facility] Urine leukocyte esterase det ection by automated test stripon 10-13-2021 Leukocyte esterase Auto test strip Ql (U) 3+ Negative [facility] Urobilinogen Auto test strip (U) [Mass/Vol]on 10-13-2021 Urobilinogen (U) [Mass/Vol] Normal mg/dL Normal [facility] pH Auto test strip (U)on pH (U) 5.5 [pH] 5.0-9.0 [facility] Prothrombin Time INRon 09-04 Prothrombin Time INR 1.[address] Other Prothrombin Time INRon 07-17 INR Coag (PPP) [Relative time] 2.0 {INR} [facility] Other Prothrombin Time INR [facility] [address] Other Prothrombin Time INRon 06-30 INR Coag (PPP) [Relative time] 4.4 {INR} [facility] Other Prothrombin Time INR [facility] [address] Other Prothrombin Time INRon 06-09 INR Coag (PPP) [Relative time] 4.9 {INR} [facility] Other Prothrombin Time INR [facility] Other Laboratory - Coagulationon 0 12-23-2020 PT Coag (PPP) [Time] 314.1 s 9.0-12.[address] [facility] Comment on above: Results calledat 111 7 on 12/23/20 Platelet poor plasma interna tional normalized ratio (INR) by coagulation assay (relaton 12-23-2020 INR Coag (PPP) [Relative time] 27.1 {INR} [facility] Comment on above: Results calledat [...] 11-25-2020 Basophils (Bld) [#/Vol] 0.1 10*3/uL 0.0-0.2 [facility] Basophils/100 WBC Auto (Bld) on 11-25-2020 Basophils/100 WBC (Bld) 1.7 % [facility] Blood anisocytosis detection on 11-25-2020 Anisocytosis Ql (Bld) Marked [facility] Blood hemoglobin measurement (mass/volume)on 11-25-2020 Hemoglobin (Bld) [Mass/Vol] 8.3 g/dL 11.8-15.4 [facility] Blood leukocytes automated c ount (number/volume)on 11-25-2020 WBC (Bld) [#/Vol] 8.5 10*3/uL 4.5-11.0 [facility] Blood polychromasia detectio n by light microscopyon 11-25-2020 Polychromasia LM Ql (Bld) Moderate [facility] Creatinine and Glomerular fi ltration rate.predicted panel (S/P/Bld)on 11-25-2020 Creatinine [Mass/Vol] 0.79 mg/dL 0.44-1.03 [facility] Eosinophils Auto (Bld) [#/Vo l]on 11-25-2020 Eosinophils (Bld) [#/Vol] 0.3 10*3/uL 0.0-0.45 [facility] Eosinophils/100 WBC Auto (Bl d)on 11-25-2020 Eosinophils/100 WBC (Bld) 3.3 % [facility] Erythrocyte distribution wid th Auto (RBC) [Ratio]on 11-25-2020 Erythrocyte distribution width (RBC) [Ratio] 21.0 % 11.9-15.3 [facility] GFR/1.73 sq M.predicted emily g non-blacks MDRD (S/P/Bld) [Vol rate/Area]on 11-25-2020 GFR/1.73 sq M predicted among non-blacks MDRD (S/P/Bld) [Vol rate/Area] > 60 mL/Min [facility] HCG ( test) IA.rapi d Ql (U)on 11-25-2020 HCG ( test) Ql (U) Negative [facility] Hematocrit Auto (Bld) [Volum e fraction]on 11-25-2020 Hematocrit (Bld) [Volume fraction] 26.3 % 34.0-46.4 [facility] Hematologyon 11-25-2020 Platelets (Bld) [#/Vol] Normal Normal [facility] PT Coag (PPP) [Time] 13.6 s 9.0-12.[address] [facility] Hypochromia detectionon 10-29 Hypochromia Ql (Bld) Moderate [facility] Lymphocytes Auto (Bld) [#/Vo l]on 11-25-2020 Lymphocytes (Bld) [#/Vol] 1.9 10*3/uL 1.00-4.8 [facility] Lymphocytes/100 WBC Auto (Bl d)on 11-25-2020 Lymphocytes/100 WBC (Bld) 22.6 % [facility] MCH Auto (RBC) [Entitic mass ]on 11-25-2020 MCH (RBC) [Entitic mass] 21.5 pg 24.7-34.3 [facility] MCHC Auto (RBC) [Mass/Vol]on 11-25-2020 MCHC (RBC) [Mass/Vol] 31.5 g/dL 32.0-35.0 [facility] MCV Auto (RBC) [Entitic vol] on 11-25-2020 MCV (RBC) [Entitic vol] 68.2 fL 80-100 [facility] Monocytes Auto (Bld) [#/Vol] on 11-25-2020 Monocytes (Bld) [#/Vol] 0.8 10*3/uL 0.0-0.8 [facility] Monocytes/100 WBC Auto (Bld) on 11-25-2020 Monocytes/100 WBC (Bld) 8.8 % [facility] Neutrophils Auto (Bld) [#/Vo l]on 11-25-2020 Neutrophils (Bld) [#/Vol] 5.4 10*3/uL 1.8-7.7 [facility] Neutrophils/100 WBC Auto (Bl d)on 11-25-2020 Neutrophils/100 WBC (Bld) 63.6 % [facility] No Panel Informationon 11-25 Estimated GFR () > 60 mL/Min [facility] Comment on above: GFR estimated refere nce range: According to KDOQI guidelines, <60 ml/min/1.73m2 is sufficient to diagnose a patient with chronic kidney disease. Platelet Estimate Normal Normal [facility] Otheron 11-25-2020 GFR/1.73 sq M.predicted MDRD (S/P/Bld) [Vol rate/Area] > 60 mL/Min [facility] Comment on above: GFR estimated refere nce range: According to KDOQI guidelines, <60 ml/min/1.73m2 is sufficient to diagnose a patient with chronic kidney disease. Microcytosis Moderate [facility] Nucleated RBC/100 WBC (Bld) [Ratio] 0.2 % 0-0.5 [facility] Creatinine Clearance (Chem 84.61 [facility] Platelet Morphology Comment Normal Normal [facility] Poikilocytosis Slight [facility] Schistocytes Slight [facility] Ovalocyte detectionon 2020 Ovalocytes LM Ql (Bld) Slight [facility] Platelet mean volume Auto (B ld) [Entitic vol]on 11-25-2020 Platelet mean volume (Bld) [Entitic vol] 8.8 fL 6.3-10.7 [facility] Platelet poor plasma interna tional normalized ratio (INR) by coagulation assay (relaton 11-25-2020 INR Coag (PPP) [Relative time] 1.2 {INR} [facility] Comment on above: INR Therapeutic [...] 11-25-2020 Platelets (Bld) [#/Vol] 318 10*3/uL 150-450 [facility] RBC Auto (Bld) [#/Vol]on RBC (Bld) [#/Vol] 3.85 10*6/uL 3.60-5.00 [facility] RBC morphologyon 11-25-2020 RBC morphology finding Nom (Bld) N/A [facility] Serum or plasma calcium jackie urement (mass/volume)on 11-25-2020 Calcium [Mass/Vol] 8.6 mg/dL 8.2-10.2 [facility] Serum or plasma chloride jose antonio surement (moles/volume)on 11-25-2020 Chloride [Moles/Vol] 102 mmol/L 95-[address] [facility] Serum or plasma glucose jackie urement (mass/volume)on 11-25-2020 Glucose [Mass/Vol] 87 mg/dL 70-100 [facility] Comment on above: ADA recommended refe rence rangeRandom Glucose Reference Range is dependent on time and content of last meal. Glucose of more than 200 mg/dL in a nonstressed, ambulatory subject supports the diagnosis of Diabetes Mellitus. Serum or plasma potassium me asurement (moles/volume)on 11-25-2020 Potassium [Moles/Vol] 3.9 mmol/L 3.5-5.1 [facility] Serum or plasma sodium measu rement (moles/volume)on 11-25-2020 Sodium [Moles/Vol] 135 mmol/L 136-146 [facility] Serum or plasma total carbon dioxide measurement (moles/volume)on 11-25-2020 CO2 [Moles/Vol] 22.7 mmol/L 22.0-30.0 [facility] Serum or plasma urea nitroge n measurement (mass/volume)on 11-25-2020 Urea nitrogen [Mass/Vol] 8 mg/dL 9-23 [facility] Target cellson 11-25-2020 Target cells LM Ql (Bld) Slight [facility] Urine human chorionic gonado tropin (hCG) detection by immunoassayon 11-25-2020 HCG ( test) Ql (U) Negative [facility] Creatine kinase [Enzymatic a ctivity/volume] in Serum or Plasmaon 11-24-2020 CK [Catalytic activity/Vol] 54 U/L 22-269 [facility] Otheron 11-24-2020 CBC Comment See comment [facility] Comment on above: There is significant microcytosis which suggests the possibility of iron deficiency. Consider serum ferritin and iron studies. Serum or plasma cardiac trop onin I measurement (mass/volume)on 11-24-2020 Troponin I.cardiac [Mass/Vol] ng/mL 0-0.02 [facility] Comment on above: ELLA OR Cut off value > or equal to 0.03 ng/mL in conjunction with clinical conditions of myocardial infarction.([email or web address]) Troponin I.cardiac [Mass/Vol] ng/mL 0-0.02 [facility] Comment on above: ELLA OR Cut off value > or equal to 0.03 ng/mL in conjunction with clinical conditions of myocardial infarction.([email or web address]) Serum or plasma creatine kin ase MB (CKMB)/total creatine kinase (CK) ratio by calculaon 11-24-2020 CK.MB Calc [Catalytic fraction] 3.8 % 0.00-2.50 [facility] Serum or plasma creatine kin ase MB measurement (mass/volume)on 11-24-2020 CK.MB [Mass/Vol] 2.1 ng/mL 0.6-6.3 [facility] Teardrop cell detectionon Dacrocytes LM Ql (Bld) Rare [facility] Activated partial thrombopla stin time (aPTT) in platelet poor plasma by coagulation aon 11-23-2020 aPTT Coag (PPP) [Time] 92.8 s 25.1-36.5 [facility] Comment on above: Critical valueresult calledat 1511 on 11/23/20 Automated basophil %on 11-23 Basophils/100 WBC (Bld) 1.1 % [facility] Automated basophil counton 0 11-23-2020 Basophils (Bld) [#/Vol] 0.2 10*3/uL 0.0-0.2 [facility] Automated blood lymphocyte c ount (number/volume)on 11-23-2020 Lymphocytes (Bld) [#/Vol] 1.5 10*3/uL 1.00-4.8 [facility] Automated blood lymphocyte c ount as percentage of total leukocyteson 11-23-2020 Lymphocytes/100 WBC (Bld) 10.4 % [facility] Automated blood monocyte cou nton 11-23-2020 Monocytes (Bld) [#/Vol] 1.5 10*3/uL 0.0-0.8 [facility] Automated blood platelet cou nt (count/volume)on 11-23-2020 Platelets (Bld) [#/Vol] 327 10*3/uL 150-450 [facility] Automated blood platelet jose antonio n volume measurementon 11-23-2020 Platelet mean volume (Bld) [Entitic vol] 8.1 fL 6.3-10.7 [facility] Automated eosinophil %on Eosinophils/100 WBC (Bld) 1.5 % [facility] Automated eosinophil counton 11-23-2020 Eosinophils (Bld) [#/Vol] 0.2 10*3/uL 0.0-0.45 [facility] Automated erythrocyte distri bution width ratioon 11-23-2020 Erythrocyte distribution width (RBC) [Ratio] 21.1 % 11.9-15.3 [facility] Automated erythrocyte mean c orpuscular hemoglobin (mass per erythrocyte)on 11-23-2020 MCH (RBC) [Entitic mass] 21.2 pg 24.7-34.3 [facility] Automated erythrocyte mean c orpuscular hemoglobin concentration measurement (mass/volon 11-23-2020 MCHC (RBC) [Mass/Vol] 31.0 g/dL 32.0-35.0 [facility] Automated erythrocyte mean c orpuscular volumeon 11-23-2020 MCV (RBC) [Entitic vol] 68.4 fL 80-100 [facility] Automated erythrocytes count in urine sediment (number/area)on 11-23-2020 RBC Auto (Urine sed) [#/Area] 20-49 [HPF] [facility] Automated leukocytes count i n urine sediment (number/area)on 11-23-2020 WBC Auto (Urine sed) [#/Area] 50-100 [HPF] [facility] Automated monocyte %on 11-23 Monocytes/100 WBC (Bld) 9.8 % [facility] Automated neutrophil %on Neutrophils/100 WBC (Bld) 77.2 % [facility] Bilirubin Test strip Ql (U)o n 11-23-2020 Bilirubin Ql (U) Negative Negative [facility] Blood anisocytosis detection on 11-23-2020 Anisocytosis Ql (Bld) Moderate [facility] Blood erythrocytes automated count (number/volume)on 11-23-2020 RBC (Bld) [#/Vol] 3.91 10*6/uL 3.60-5.00 [facility] Blood hemoglobin measurement (mass/volume)on 11-23-2020 Hemoglobin (Bld) [Mass/Vol] 8.3 g/dL 11.8-15.4 [facility] Blood leukocytes automated c ount (number/volume)on 11-23-2020 WBC (Bld) [#/Vol] 14.9 10*3/uL 4.5-11.0 [facility] Blood neutrophil count by au tomated method (number/volume)on 11-23-2020 Neutrophils (Bld) [#/Vol] 11.5 10*3/uL 1.8-7.7 [facility] Blood polychromasia detectio n by light microscopyon 11-23-2020 Polychromasia LM Ql (Bld) Slight [facility] COVID-19 Positive/Negativeon 11-23-2020 COVID-19 Positive/Negative Negative Negative [facility] Comment on above: Reference: NegativeT esting for SARS-CoV-2 by RT-PCRThis test was developed and its performance characteristics determined by [employer] ([employer]) and validated at the [facility]. This test has not been FDA cleared [...] N gene ADITI+probe Ql (Resp) Negative Negative [facility] Comment on above: Reference: NegativeT esting for SARS-CoV-2 by RT-PCRThis test was developed and its performance characteristics determined by [employer] ([employer]) and validated at the [facility]. This test has not been FDA cleared [...] COVID-19 SOFIAon 11-23-2020 COVID-19 MARANDA Negative Negative [facility] Comment on above: This is a duplicate Maranda SARS Antigen (CAIT) result to be used for statistical tracking purpose only. SARS-CoV+SARS-CoV-2 (COVID-19) Ag IA.rapid Ql (Resp) Negative Negative [facility] Comment on above: This is a duplicate Maranda SARS Antigen (CAIT) result to be used for statistical tracking purpose only. CT biopsyon 11-23-2020 Transferrin [Mass/Vol] 321 mg/dL 180-380 Fi relands [facility]acon 11-23-2020 Natriuretic peptide B (Bld) [Mass/Vol] 859.0 pg/mL 5-100 [facility] Color Auto (U)on 11-23-2020 Color (U) Yellow Yellow [facility] Creatine kinase [Enzymatic a ctivity/volume] in Serum or Plasmaon 11-23-2020 CK [Catalytic activity/Vol] 66 U/L 22-269 [facility] Estimated glomerular filtrat ion rate (GFR) non- Americanon 11-23-2020 GFR/1.73 sq M predicted among non-blacks MDRD (S/P/Bld) [Vol rate/Area] > 60 mL/Min [facility] Ferritin [Mass/volume] in Se rum or Plasmaon 11-23-2020 Ferritin [Mass/Vol] 39.9 ng/mL 11-306.8 [facility] Folate [Mass/volume] in Seru m or Plasmaon 11-23-2020 Folate [Mass/Vol] ng/mL >5.9 [facility] Comment on above: Folate reference ran ge: >5.9 ng/mlThe WHO technical consultation on folate and vitamin [id number] has determined that folate concentrations lessthan 4 ng/ml are considered deficient. Folate [Mass/Vol] ng/mL >5.9 [facility] Comment on above: Folate reference ran ge: >5.9 ng/mlThe WHO technical consultation on folate and vitamin [id number] has determined that folate concentrations lessthan 4 ng/ml are considered deficient. Hematocrit [Volume Fraction] of Blood by Automated counton 11-23-2020 Hematocrit (Bld) [Volume fraction] 26.7 % 34.0-46.4 [facility] Hematologyon 11-23-2020 Platelets (Bld) [#/Vol] Normal Normal [facility] PT Coag (PPP) [Time] 189.6 s 9.0-12.[address] [facility] Hypochromia detectionon 10-29 Hypochromia Ql (Bld) Moderate [facility] Iron [Mass/volume] in Serum or Plasmaon 11-23-2020 Iron [Mass/Vol] 19 ug/dL 40-150 [facility] Iron binding capacity [Mass/ volume] in Serum or Plasmaon 11-23-2020 Iron binding capacity [Mass/Vol] 449 ug/dL 255-450 [facility] Iron saturation [Mass Fracti on] in Serum or Plasmaon 11-23-2020 Iron saturation [Mass fraction] 4.0 % 20-50 [facility] Ketones Auto test strip (U) [Mass/Vol]on 11-23-2020 Ketones (U) [Mass/Vol] Negative Negative Fi [facility] Laboratory - Microbiology an d Antimicrobial susceptibilityon 11-23-2020 SARS-CoV-2 (COVID-19) RNA ADITI+probe Ql (Unsp spec) N/A [facility] Metabolic Panelon 11-23-2020 Magnesium [Mass/Vol] 1.8 mg/dL 1.6-2.[address] [facility] Nitrite Test strip Ql (U)on 11-23-2020 Nitrite Ql (U) Positive Negative [facility] Otheron 11-23-2020 Absolute Reticulocyte Count 0.104 10*6/uL 0.024-0.08 4 [facility] Cobalamin (Vitamin B12) [Mass/Vol] 275 pg/mL 180-914 [facility] Coronavirus 2019 PCR Interp N/A [facility] Crenated Cell Slight [facility] GFR/1.73 sq M.predicted MDRD (S/P/Bld) [Vol rate/Area] > 60 mL/Min [facility] Comment on above: GFR estimated refere nce range: According to KDOQI guidelines, <60 ml/min/1.73m2 is sufficient to diagnose a patient with chronic kidney disease. Microcytosis Moderate [facility] Nucleated RBC/100 WBC (Bld) [Ratio] 0.1 % 0-0.5 [facility] Percent Reticulocyte Count 2.6 % 0.5-1.5 [facility] Creatinine Clearance (Chem 74.80 [facility] Platelet Morphology Comment Normal Normal [facility] Poikilocytosis Slight [facility] SARS Antigen (LFIA) [facility] Schistocytes Rare [facility] Ovalocyte detectionon 2020 Ovalocytes LM Ql (Bld) Slight Fi [facility] Platelet poor plasma interna tional normalized ratio (INR) by coagulation assay (relaton 11-23-2020 INR Coag (PPP) [Relative time] 16.6 {INR} [facility] Comment on above: Critical valueresult [...] 11-23-2020 Protein (U) [Mass/Vol] Negative Negative [facility] RBC morphologyon 11-23-2020 RBC morphology finding Nom (Bld) N/A [facility] Serum or plasma calcium jackie urement (mass/volume)on 11-23-2020 Calcium [Mass/Vol] 8.4 mg/dL 8.2-10.2 [facility] Serum or plasma cardiac trop onin I measurement (mass/volume)on 11-23-2020 Troponin I.cardiac [Mass/Vol] ng/mL 0-0.02 [facility] Comment on above: ELLA OR Cut off value > or equal to 0.03 ng/mL in conjunction with clinical conditions of myocardial infarction.([email or web address]) Serum or plasma chloride jose antonio surement (moles/volume)on 11-23-2020 Chloride [Moles/Vol] 104 mmol/L 95-[address] [facility] Serum or plasma creatine kin ase MB (CKMB)/total creatine kinase (CK) ratio by calculaon 11-23-2020 CK.MB Calc [Catalytic fraction] 2.8 % 0.00-2.50 [facility] Serum or plasma creatine kin ase MB measurement (mass/volume)on 11-23-2020 CK.MB [Mass/Vol] 1.9 ng/mL 0.6-6.3 [facility] Serum or plasma creatinine m easurement with calculation of estimated glomerular filtron 11-23-2020 Creatinine [Mass/Vol] 0.83 mg/dL 0.44-1.03 [facility] Serum or plasma glucose jackie urement (mass/volume)on 11-23-2020 Glucose [Mass/Vol] 126 mg/dL 70-100 [facility] Comment on above: ADA recommended refe rence rangeRandom Glucose Reference Range is dependent on time and content of last meal. Glucose of more than 200 mg/dL in a nonstressed, ambulatory subject supports the diagnosis of Diabetes Mellitus. Serum or plasma potassium me asurement (moles/volume)on 11-23-2020 Potassium [Moles/Vol] 3.8 mmol/L 3.5-5.1 [facility] Serum or plasma sodium measu rement (moles/volume)on 11-23-2020 Sodium [Moles/Vol] 135 mmol/L 136-146 [facility] Serum or plasma total carbon dioxide measurement (moles/volume)on 11-23-2020 CO2 [Moles/Vol] 22.0 mmol/L 22.0-30.0 [facility] Serum or plasma urea nitroge n measurement (mass/volume)on 11-23-2020 Urea nitrogen [Mass/Vol] 9 mg/dL 9-23 [facility] Specific gravity Auto test s trip (U) [Rel density]on 11-23-2020 Specific gravity (U) [Rel density] 1.007 1.001-1.03 0 [facility] Squamous epithelial cells de tection in urine sediment by light microscopyon 11-23-2020 Epithelial cells.squamous LM Ql (Urine sed) 3-4 [HPF] [facility] Target cellson 11-23-2020 Target cells LM Ql (Bld) Slight [facility] Teardrop cell detectionon Dacrocytes LM Ql (Bld) Rare [facility] Urinalysison 11-23-2020 Hyaline casts LM Ql (Urine sed) 0-8 [LPF] [facility] Urine bacteria detection by automated methodon 11-23-2020 Bacteria Auto Ql (U) 4+ None Seen [facility] Urine clarity by refractomet ry automatedon 11-23-2020 Clarity Refractometry automated (U) Clear Clear [facility] Urine culture routineon 10-29 Bacteria identified Cx Nom (U) Escherichia coli [facility] Urine glucose measurement by automated test strip (mass/volume)on 11-23-2020 Glucose Auto test strip (U) [Mass/Vol] Normal mg/dL Normal [facility] Urine hemoglobin detection b y automated test stripon 11-23-2020 Hemoglobin Auto test strip Ql (U) 3+ Negative [facility] Urine ketones measurement by automated test strip (mass/volume)on 11-23-2020 Ketones (U) [Mass/Vol] Negative Negative [facility] Urine leukocyte esterase det ection by automated test stripon 11-23-2020 Leukocyte esterase Auto test strip Ql (U) 4+ Negative [facility] Urine nitrite detection by t est stripon 11-23-2020 Nitrite Ql (U) Positive Negative [facility] Urine protein measurement by automated test strip (mass/volume)on 11-23-2020 Protein (U) [Mass/Vol] Negative Negative [facility] Urine total bilirubin detect ion by test stripon 11-23-2020 Bilirubin Ql (U) Negative Negative [facility] Urobilinogen Auto test strip (U) [Mass/Vol]on 11-23-2020 Urobilinogen (U) [Mass/Vol] Normal mg/dL Normal [facility] pH Auto test strip (U)on pH (U) 6.5 [pH] 5.0-9.0 [facility] Activated partial thrombopla stin time (aPTT) in platelet poor plasma by coagulation aon 08-16-2020 aPTT Coag (PPP) [Time] 55.8 s 23.0-35.0 [facility] Automated basophil %on 08-16 Basophils/100 WBC (Bld) 0.9 % [facility] Automated basophil counton 1 10-17-2019 Basophils (Bld) [#/Vol] 0.1 10*3/uL 0.0-0.2 [facility] Automated blood lymphocyte c ount (number/volume)on 08-16-2020 Lymphocytes (Bld) [#/Vol] 1.6 10*3/uL 1.00-4.8 [facility] Automated blood lymphocyte c ount as percentage of total leukocyteson 08-16-2020 Lymphocytes/100 WBC (Bld) 17.3 % [facility] Automated blood monocyte cou nton 08-16-2020 Monocytes (Bld) [#/Vol] 0.7 10*3/uL 0.0-0.8 [facility] Automated blood platelet cou nt (count/volume)on 08-16-2020 Platelets (Bld) [#/Vol] 305 10*3/uL 150-450 [facility] Automated blood platelet jose antonio n volume measurementon 08-16-2020 Platelet mean volume (Bld) [Entitic vol] 9.1 fL 6.3-10.7 [facility] Automated eosinophil %on Eosinophils/100 WBC (Bld) 1.6 % [facility] Automated eosinophil counton 08-16-2020 Eosinophils (Bld) [#/Vol] 0.1 10*3/uL 0.0-0.45 [facility] Automated erythrocyte distri bution width ratioon 08-16-2020 Erythrocyte distribution width (RBC) [Ratio] 18.8 % 11.9-15.3 [facility] Automated erythrocyte mean c orpuscular hemoglobin (mass per erythrocyte)on 08-16-2020 MCH (RBC) [Entitic mass] 23.9 pg 24.7-34.3 [facility] Automated erythrocyte mean c orpuscular hemoglobin concentration measurement (mass/volon 08-16-2020 MCHC (RBC) [Mass/Vol] 31.1 g/dL 32.0-35.0 [facility] Automated erythrocyte mean c orpuscular volumeon 08-16-2020 MCV (RBC) [Entitic vol] 76.9 fL 80-100 [facility] Automated erythrocytes count in urine sediment (number/area)on 08-16-2020 RBC Auto (Urine sed) [#/Area] 10-19 [HPF] [facility] Automated leukocytes count i n urine sediment (number/area)on 08-16-2020 WBC Auto (Urine sed) [#/Area] Innumerable [HPF] [facility] Automated monocyte %on 08-16 Monocytes/100 WBC (Bld) 7.6 % [facility] Automated neutrophil %on Neutrophils/100 WBC (Bld) 72.6 % [facility] Automated urine color determ inationon 08-16-2020 Color (U) Yellow Yellow [facility] Automated urine hyaline cast s count (number/volume)on 08-16-2020 Hyaline casts Auto (U) [#/Vol] None seen [LPF] [facility] Blood erythrocytes automated count (number/volume)on 08-16-2020 RBC (Bld) [#/Vol] 4.45 10*6/uL 3.60-5.00 [facility] Blood hemoglobin measurement (mass/volume)on 08-16-2020 Hemoglobin (Bld) [Mass/Vol] 10.7 g/dL 11.8-15.4 [facility] Blood leukocytes automated c ount (number/volume)on 08-16-2020 WBC (Bld) [#/Vol] 9.1 10*3/uL 3.8-11.6 [facility] Blood neutrophil count by au tomated method (number/volume)on 08-16-2020 Neutrophils (Bld) [#/Vol] 6.6 10*3/uL 1.8-7.7 [facility] COVID-19 Detected/Not Detect edon 08-16-2020 COVID-19 Detected/Not Detected Not detected Not Detecte [facility] Comment on above: This is a duplicate test result based off of the RP2.1 COVID (EUA) test performed within the Microbiology department. [facility] 08-16-2020 Natriuretic peptide B (Bld) [Mass/Vol] 1123.0 pg/mL 5-100 [facility] Casts typing in urine sedime nt by light microscopyon 08-16-2020 Casts LM Nom (Urine sed) None seen [LPF] None Seen [facility] Creatine kinase [Enzymatic a ctivity/volume] in Serum or Plasmaon 08-16-2020 CK [Catalytic activity/Vol] 72 U/L 22-269 [facility] Estimated glomerular filtrat ion rate (GFR) non- Americanon 08-16-2020 GFR/1.73 sq M predicted among non-blacks MDRD (S/P/Bld) [Vol rate/Area] 56 mL/min/{1.73_m2} [facility] Hematocrit [Volume Fraction] of Blood by Automated counton 08-16-2020 Hematocrit (Bld) [Volume fraction] 34.2 % 34.0-46.4 [facility] Hematologyon 08-16-2020 PT Coag (PPP) [Time] 132.6 s 9.0-12.[address] [facility] PT Coag (PPP) [Time] 144.3 s 9.0-12.[address] [facility] Lactate dehydrogenase measur ement (enzymatic activity/volume)on 08-16-2020 LDH (Unsp spec) [Catalytic activity/Vol] 268 U/L 45-190 [facility] Metabolic Panelon 08-16-2020 Magnesium [Mass/Vol] 1.8 mg/dL 1.6-2.[address] [facility] Otheron 08-16-2020 D-Dimer Quantitative (PE/DVT) < 200 ng/mL 0-243 [facility] Comment on above: The reference [...] sq M.predicted MDRD (S/P/Bld) [Vol rate/Area] mL/min/{1.73_m2} [facility] Comment on above: GFR estimated refere nce range: According to KDOQI guidelines, <60 ml/min/1.73m2 is sufficient to diagnose a patient with chronic kidney disease. Nucleated RBC/100 WBC (Bld) [Ratio] 0.1 % 0-0.5 [facility] Creatinine Clearance (Chem 61.68 [facility] Respiratory Panel (PCR) [facility] Platelet poor plasma interna tional normalized ratio (INR) by coagulation assay (relaton 08-16-2020 INR Coag (PPP) [Relative time] 11.6 {INR} [facility] Comment on above: Critical valueresult [...] - 4.5 INR Coag (PPP) [Relative time] 12.6 {INR} [facility] Comment on above: Results calledat [...] (mass/volume)on 08-16-2020 Calcium [Mass/Vol] 8.4 mg/dL 8.2-10.2 [facility] Serum or plasma cardiac trop onin I measurement (mass/volume)on 08-16-2020 Troponin I.cardiac [Mass/Vol] ng/mL 0-0.02 [facility] Comment on above: ELLA OR Cut off value > or equal to 0.03 ng/mL in conjunction with clinical conditions of myocardial infarction.([email or web address]) Serum or plasma chloride jose antonio surement (moles/volume)on 08-16-2020 Chloride [Moles/Vol] 103 mmol/L 95-[address] [facility] Serum or plasma creatine kin ase MB (CKMB)/total creatine kinase (CK) ratio by calculaon 08-16-2020 CK.MB Calc [Catalytic fraction] 3.7 0.00-2.50 [facility] Serum or plasma creatine kin ase MB measurement (mass/volume)on 08-16-2020 CK.MB [Mass/Vol] 2.7 ng/mL 0.6-6.3 [facility] Serum or plasma creatinine m easurement with calculation of estimated glomerular filtron 08-16-2020 Creatinine [Mass/Vol] 1.03 mg/dL 0.44-1.03 [facility] Serum or plasma glucose jackie urement (mass/volume)on 08-16-2020 Glucose [Mass/Vol] 120 mg/dL 70-100 [facility] Comment on above: ADA recommended refe rence rangeRandom Glucose Reference Range is dependent on time and content of last meal. Glucose of more than 200 mg/dL in a nonstressed, ambulatory subject supports the diagnosis of Diabetes Mellitus. Serum or plasma potassium me asurement (moles/volume)on 08-16-2020 Potassium [Moles/Vol] 4.3 mmol/L 3.5-5.1 [facility] Serum or plasma sodium measu rement (moles/volume)on 08-16-2020 Sodium [Moles/Vol] 140 mmol/L 136-146 [facility] Serum or plasma total carbon dioxide measurement (moles/volume)on 08-16-2020 CO2 [Moles/Vol] 25.2 mmol/L 22.0-30.0 [facility] Serum or plasma urea nitroge n measurement (mass/volume)on 08-16-2020 Urea nitrogen [Mass/Vol] 9 mg/dL 9-23 [facility] Specific gravity of Urine by Automated test stripon 08-16-2020 Specific gravity (U) [Rel density] 1.014 1.001-1.03 0 [facility] Squamous epithelial cells de tection in urine sediment by light microscopyon 08-16-2020 Epithelial cells.squamous LM Ql (Urine sed) 5-9 [HPF] [facility] Trichomonas vaginalis detect ion in urine sediment by light microscopyon 08-16-2020 T. vaginalis LM Ql (Urine sed) 3-4 [HPF] None Seen [facility] Urine bacteria detection by automated methodon 08-16-2020 Bacteria Auto Ql (U) None seen None Seen [facility] Urine clarity by refractomet ry automatedon 08-16-2020 Clarity Refractometry automated (U) Cloudy Clear [facility] Urine glucose measurement by automated test strip (mass/volume)on 08-16-2020 Glucose Auto test strip (U) [Mass/Vol] Normal mg/dL Normal [facility] Urine hemoglobin detection b y automated test stripon 08-16-2020 Hemoglobin Auto test strip Ql (U) 1+ Negative [facility] Urine ketones measurement by automated test strip (mass/volume)on 08-16-2020 Ketones (U) [Mass/Vol] Negative Negative [facility] Urine leukocyte esterase det ection by automated test stripon 08-16-2020 Leukocyte esterase Auto test strip Ql (U) 4+ Negative [facility] Urine nitrite detection by t est stripon 08-16-2020 Nitrite Ql (U) Negative Negative [facility] Urine pH measurement by auto mated test stripon 08-16-2020 pH (U) 6.5 [pH] 5.0-9.0 [facility] Urine protein measurement by automated test strip (mass/volume)on 08-16-2020 Protein (U) [Mass/Vol] Trace mg/dL Negative [facility] Urine total bilirubin detect ion by test stripon 08-16-2020 Bilirubin Ql (U) Negative Negative [facility] Urine urobilinogen measureme nt by automated test strip (mass/volume)on 08-16-2020 Urobilinogen (U) [Mass/Vol] Normal mg/dL Normal [facility] Activated partial thrombopla stin time (aPTT) in platelet poor plasma by coagulation aon 07-26-2020 aPTT Coag (PPP) [Time] 32.4 s 23.0-35.0 [facility] Automated basophil %on 07-26 Basophils/100 WBC (Bld) 1.5 % [facility] Automated basophil counton 1 09-25-2019 Basophils (Bld) [#/Vol] 0.1 10*3/uL 0.0-0.2 [facility] Automated blood lymphocyte c ount (number/volume)on 07-26-2020 Lymphocytes (Bld) [#/Vol] 1.9 10*3/uL 1.00-4.8 [facility] Automated blood lymphocyte c ount as percentage of total leukocyteson 07-26-2020 Lymphocytes/100 WBC (Bld) 24.7 % [facility] Automated blood monocyte cou nton 07-26-2020 Monocytes (Bld) [#/Vol] 0.8 10*3/uL 0.0-0.8 [facility] Automated blood platelet cou nt (count/volume)on 07-26-2020 Platelets (Bld) [#/Vol] 207 10*3/uL 150-450 [facility] Automated blood platelet jose antonio n volume measurementon 07-26-2020 Platelet mean volume (Bld) [Entitic vol] 9.5 fL 6.3-10.7 [facility] Automated eosinophil %on Eosinophils/100 WBC (Bld) 3.4 % [facility] Automated eosinophil counton 07-26-2020 Eosinophils (Bld) [#/Vol] 0.3 10*3/uL 0.0-0.45 [facility] Automated erythrocyte distri bution width ratioon 07-26-2020 Erythrocyte distribution width (RBC) [Ratio] 20.9 % 11.9-15.3 [facility] Automated erythrocyte mean c orpuscular hemoglobin (mass per erythrocyte)on 07-26-2020 MCH (RBC) [Entitic mass] 24.3 pg 24.7-34.3 [facility] Automated erythrocyte mean c orpuscular hemoglobin concentration measurement (mass/volon 07-26-2020 MCHC (RBC) [Mass/Vol] 31.3 g/dL 32.0-35.0 [facility] Automated erythrocyte mean c orpuscular volumeon 07-26-2020 MCV (RBC) [Entitic vol] 77.8 fL 80-100 [facility] Automated monocyte %on 07-26 Monocytes/100 WBC (Bld) 10.5 % [facility] Automated neutrophil %on Neutrophils/100 WBC (Bld) 59.9 % [facility] Blood anisocytosis detection on 07-26-2020 Anisocytosis Ql (Bld) Marked [facility] Blood erythrocytes automated count (number/volume)on 07-26-2020 RBC (Bld) [#/Vol] 4.84 10*6/uL 3.60-5.00 [facility] Blood hemoglobin measurement (mass/volume)on 07-26-2020 Hemoglobin (Bld) [Mass/Vol] 11.8 g/dL 11.8-15.4 [facility] Blood leukocytes automated c ount (number/volume)on 07-26-2020 WBC (Bld) [#/Vol] 7.8 10*3/uL 4.5-11.0 [facility] Blood neutrophil count by au tomated method (number/volume)on 07-26-2020 Neutrophils (Bld) [#/Vol] 4.7 10*3/uL 1.8-7.7 [facility] Body fluid albumin measureme nt (mass/volume)on 07-26-2020 Albumin (Body fld) [Mass/Vol] 3.5 g/dL 3.2-5.5 [facility] Creatine kinase [Enzymatic a ctivity/volume] in Serum or Plasmaon 07-26-2020 CK [Catalytic activity/Vol] 58 U/L 22- [facility] Estimated glomerular filtrat ion rate (GFR) non- Americanon 07-26-2020 GFR/1.73 sq M predicted among non-blacks MDRD (S/P/Bld) [Vol rate/Area] mL/min/{1.73_m2} [facility] Hematocrit [Volume Fraction] of Blood by Automated counton 07-26-2020 Hematocrit (Bld) [Volume fraction] 37.7 % 34.0-46.4 [facility] Hematologyon 07-26-2020 Platelets (Bld) [#/Vol] Normal Normal [facility] PT Coag (PPP) [Time] 16.1 s 9.0-12.[address] [facility] Hypochromia detectionon 07-01 Hypochromia Ql (Bld) Slight [facility] Metabolic Panelon 07-26-2020 Magnesium [Mass/Vol] 1.7 mg/dL 1.6-2.[address] [facility] Otheron 07-26-2020 GFR/1.73 sq M.predicted MDRD (S/P/Bld) [Vol rate/Area] mL/min/{1.73_m2} [facility] Comment on above: GFR estimated refere nce range: According to KDOQI guidelines, <60 ml/min/1.73m2 is sufficient to diagnose a patient with chronic kidney disease. Microcytosis Slight [facility] Nucleated RBC/100 WBC (Bld) [Ratio] 0.1 % 0-0.5 [facility] Creatinine Clearance (Chem 66.06 [facility] Platelet Morphology Comment Normal Normal [facility] Platelet poor plasma interna tional normalized ratio (INR) by coagulation assay (relaton 07-26-2020 INR Coag (PPP) [Relative time] 1.4 {INR} [facility] Comment on above: INR Therapeutic [...] Plasmaon 07-26-2020 Protein [Mass/Vol] 6.4 g/dL 6.1-7.9 [facility] RBC morphologyon 07-26-2020 RBC morphology finding Nom (Bld) N/A [facility] Serum globulin measurement b y calculation (mass/volume)on 07-26-2020 Globulin (S) [Mass/Vol] 2.9 g/dL [facility] Serum or plasma alanine hernandez otransferase measurement without P-5'-P (enzymatic activion 07-26-2020 ALT No additional P-5'-P [Catalytic activity/Vol] 21 U/L 1060 [facility] Serum or plasma albumin/glob ulin mass ratioon 07-26-2020 Albumin/Globulin [Mass ratio] 1.2 {ratio} [facility] Serum or plasma alkaline rosanna sphatase measurement (enzymatic activity/volume)on 07-26-2020 ALP [Catalytic activity/Vol] 153 U/L 32-92 [facility] Serum or plasma aspartate am inotransferase measurement (enzymatic activity/volume)on 07-26-2020 AST [Catalytic activity/Vol] 22 U/L 1042 [facility] Serum or plasma calcium jackie urement (mass/volume)on 07-26-2020 Calcium [Mass/Vol] 8.7 mg/dL 8.2-10.2 [facility] Serum or plasma cardiac trop onin I measurement (mass/volume)on 07-26-2020 Troponin I.cardiac [Mass/Vol] ng/mL 0-0.02 [facility] Comment on above: ELLA OR Cut off value > or equal to 0.03 ng/mL in conjunction with clinical conditions of myocardial infarction.([email or web address]) Serum or plasma chloride jose antonio surement (moles/volume)on 07-26-2020 Chloride [Moles/Vol] 106 mmol/L 95-[address] [facility] Serum or plasma creatine kin ase MB (CKMB)/total creatine kinase (CK) ratio by calculaon 07-26-2020 CK.MB Calc [Catalytic fraction] 3.7 0.00-2.50 [facility] Serum or plasma creatine kin ase MB measurement (mass/volume)on 07-26-2020 CK.MB [Mass/Vol] 2.2 ng/mL 0.6-6.3 [facility] Serum or plasma creatinine m easurement with calculation of estimated glomerular filtron 07-26-2020 Creatinine [Mass/Vol] 0.96 mg/dL 0.44-1.03 [facility] Serum or plasma glucose jackie urement (mass/volume)on 07-26-2020 Glucose [Mass/Vol] 96 mg/dL 70-100 [facility] Comment on above: ADA recommended refe rence rangeRandom Glucose Reference Range is dependent on time and content of last meal. Glucose of more than 200 mg/dL in a nonstressed, ambulatory subject supports the diagnosis of Diabetes Mellitus. Serum or plasma potassium me asurement (moles/volume)on 07-26-2020 Potassium [Moles/Vol] 4.2 mmol/L 3.5-5.1 [facility] Serum or plasma sodium measu rement (moles/volume)on 07-26-2020 Sodium [Moles/Vol] 138 mmol/L 136-146 [facility] Serum or plasma total biliru bin measurement (mass/volume)on 07-26-2020 Bilirubin [Mass/Vol] 0.3 mg/dL 0.3-1.[address] [facility] Serum or plasma total carbon dioxide measurement (moles/volume)on 07-26-2020 CO2 [Moles/Vol] 22.5 mmol/L 22.0-30.0 [facility] Serum or plasma urea nitroge n measurement (mass/volume)on 07-26-2020 Urea nitrogen [Mass/Vol] 14 mg/dL 05-22 [facility] Activated partial thrombopla stin time (aPTT) in platelet poor plasma by coagulation aon 07-22-2020 aPTT Coag (PPP) [Time] 36.7 s 23.0-35.0 Fi relanes [facility] Automated basophil %on 07-22 Basophils/100 WBC (Bld) 1.1 % [facility] Automated basophil counton 1 09-21-2019 Basophils (Bld) [#/Vol] 0.1 10*3/uL 0.0-0.2 [facility] Automated blood lymphocyte c ount (number/volume)on 07-22-2020 Lymphocytes (Bld) [#/Vol] 1.8 10*3/uL 1.00-4.8 [facility] Automated blood lymphocyte c ount as percentage of total leukocyteson 07-22-2020 Lymphocytes/100 WBC (Bld) 18.8 % [facility] [facility] Automated blood monocyte cou nton 07-22-2020 Monocytes (Bld) [#/Vol] 0.9 10*3/uL 0.0-0.8 [facility] Automated blood platelet cou nt (count/volume)on 07-22-2020 Platelets (Bld) [#/Vol] 201 10*3/uL 150-450 [facility] Automated blood platelet jose antonio n volume measurementon 07-22-2020 Platelet mean volume (Bld) [Entitic vol] 9.4 fL 6.3-10.7 [facility] Automated eosinophil %on Eosinophils/100 WBC (Bld) 2.1 % [facility] Automated eosinophil counton 07-22-2020 Eosinophils (Bld) [#/Vol] 0.2 10*3/uL 0.0-0.45 [facility] Automated erythrocyte distri bution width ratioon 07-22-2020 Erythrocyte distribution width (RBC) [Ratio] 20.7 % 11.9-15.3 [facility] Automated erythrocyte mean c orpuscular hemoglobin (mass per erythrocyte)on 07-22-2020 MCH (RBC) [Entitic mass] 24.0 pg 24.7-34.3 [facility] Automated erythrocyte mean c orpuscular hemoglobin concentration measurement (mass/volon 07-22-2020 MCHC (RBC) [Mass/Vol] 31.1 g/dL 32.0-35.0 [facility] Automated erythrocyte mean c orpuscular volumeon 07-22-2020 MCV (RBC) [Entitic vol] 77.1 fL 80-100 [facility] Automated monocyte %on 07-22 Monocytes/100 WBC (Bld) 9.4 % [facility] Automated neutrophil %on Neutrophils/100 WBC (Bld) 68.6 % [facility] Blood erythrocytes automated count (number/volume)on 07-22-2020 RBC (Bld) [#/Vol] 4.68 10*6/uL 3.60-5.00 [facility] Blood hemoglobin measurement (mass/volume)on 07-22-2020 Hemoglobin (Bld) [Mass/Vol] 11.2 g/dL 11.8-15.4 [facility] Blood leukocytes automated c ount (number/volume)on 07-22-2020 WBC (Bld) [#/Vol] 9.5 10*3/uL 4.5-11.0 [facility] Blood neutrophil count by au tomated method (number/volume)on 07-22-2020 Neutrophils (Bld) [#/Vol] 6.5 10*3/uL 1.8-7.7 [facility] Body fluid albumin measureme nt (mass/volume)on 07-22-2020 Albumin (Body fld) [Mass/Vol] 3.5 g/dL 3.2-5.5 [facility] COVID-19 SOFIAon 07-22-2020 COVID-19 MARANDA Negative Negative [facility] Comment on above: This is a duplicate test result based off of the Maranda SARS Antigen (CAIT) test performed within the Microbiology department. [facility] 07-22-2020 Natriuretic peptide B (Bld) [Mass/Vol] 508.0 pg/mL 5-100 [facility] Estimated glomerular filtrat ion rate (GFR) non- Americanon 07-22-2020 GFR/1.73 sq M predicted among non-blacks MDRD (S/P/Bld) [Vol rate/Area] 58 mL/min/{1.73_m2} [facility] Hematocrit [Volume Fraction] of Blood by Automated counton 07-22-2020 Hematocrit (Bld) [Volume fraction] 36.1 % 34.0-46.4 [facility] Hematologyon 07-22-2020 PT Coag (PPP) [Time] 33.6 s 9.0-12.[address] [facility] Metabolic Panelon 07-22-2020 Magnesium [Mass/Vol] 1.9 mg/dL 1.6-2.[address] [facility] Otheron 07-22-2020 GFR/1.73 sq M.predicted MDRD (S/P/Bld) [Vol rate/Area] mL/min/{1.73_m2} [facility] Comment on above: GFR estimated refere nce range: According to KDOQI guidelines, <60 ml/min/1.73m2 is sufficient to diagnose a patient with chronic kidney disease. Nucleated RBC/100 WBC (Bld) [Ratio] 0.0 % 0-0.5 [facility] Creatinine Clearance (Chem 64.10 [facility] SARS Antigen (LFIA) [facility] Platelet poor plasma interna tional normalized ratio (INR) by coagulation assay (relaton 07-22-2020 INR Coag (PPP) [Relative time] 3.0 {INR} [facility] Comment on above: INR Therapeutic [...] Plasmaon 07-22-2020 Protein [Mass/Vol] 6.3 g/dL 6.1-7.9 [facility] Serum globulin measurement b y calculation (mass/volume)on 07-22-2020 Globulin (S) [Mass/Vol] 2.8 g/dL [facility] Serum or plasma alanine hernandez otransferase measurement without P-5'-P (enzymatic activion 07-22-2020 ALT No additional P-5'-P [Catalytic activity/Vol] 32 U/L 10-60 [facility] Serum or plasma albumin/glob ulin mass ratioon 07-22-2020 Albumin/Globulin [Mass ratio] 1.3 {ratio} [facility] Serum or plasma alkaline rosanna sphatase measurement (enzymatic activity/volume)on 07-22-2020 ALP [Catalytic activity/Vol] 145 U/L 32-92 [facility] Serum or plasma aspartate am inotransferase measurement (enzymatic activity/volume)on 07-22-2020 AST [Catalytic activity/Vol] 34 U/L 10-42 [facility] Serum or plasma calcium jackie urement (mass/volume)on 07-22-2020 Calcium [Mass/Vol] 8.6 mg/dL 8.2-10.2 [facility] Serum or plasma cardiac trop onin I measurement (mass/volume)on 07-22-2020 Troponin I.cardiac [Mass/Vol] ng/mL 0-0.02 [facility] Comment on above: ELLA OR Cut off value > or equal to 0.03 ng/mL in conjunction with clinical conditions of myocardial infarction.([email or web address]) Serum or plasma chloride jose antonio surement (moles/volume)on 07-22-2020 Chloride [Moles/Vol] 102 mmol/L 95-[address] [facility] Serum or plasma creatinine m easurement with calculation of estimated glomerular filtron 07-22-2020 Creatinine [Mass/Vol] 1.01 mg/dL 0.44-1.03 [facility] Serum or plasma glucose jackie urement (mass/volume)on 07-22-2020 Glucose [Mass/Vol] 100 mg/dL 70-100 [facility] Comment on above: ADA recommended refe rence rangeRandom Glucose Reference Range is dependent on time and content of last meal. Glucose of more than 200 mg/dL in a nonstressed, ambulatory subject supports the diagnosis of Diabetes Mellitus. Serum or plasma potassium me asurement (moles/volume)on 07-22-2020 Potassium [Moles/Vol] 4.5 mmol/L 3.5-5.1 [facility] Serum or plasma sodium measu rement (moles/volume)on 07-22-2020 Sodium [Moles/Vol] 138 mmol/L 136-146 [facility] Serum or plasma total biliru bin measurement (mass/volume)on 07-22-2020 Bilirubin [Mass/Vol] 0.3 mg/dL 0.3-1.[address] [facility] Serum or plasma total carbon dioxide measurement (moles/volume)on 07-22-2020 CO2 [Moles/Vol] 24.6 mmol/L 22.0-30.0 [facility] Serum or plasma urea nitroge n measurement (mass/volume)on 07-22-2020 Urea nitrogen [Mass/Vol] 15 mg/dL 05-22 [facility] Activated partial thrombopla stin time (aPTT) in platelet poor plasma by coagulation aon 07-19-2020 aPTT Coag (PPP) [Time] 41.0 s 23.0-35.0 Fi [facility] Albumin [Mass/volume] in Ser um or Plasmaon 07-19-2020 Albumin [Mass/Vol] 3.9 g/dL 3.2-5.5 [facility] Automated basophil %on 07-19 Basophils/100 WBC (Bld) 1.7 % [facility] Automated basophil counton 1 09-18-2019 Basophils (Bld) [#/Vol] 0.1 10*3/uL 0.0-0.2 [facility] Automated blood lymphocyte c ount (number/volume)on 07-19-2020 Lymphocytes (Bld) [#/Vol] 2.9 10*3/uL 1.00-4.8 [facility] Automated blood lymphocyte c ount as percentage of total leukocyteson 07-19-2020 Lymphocytes/100 WBC (Bld) 34.7 % [facility] Automated blood monocyte cou nton 07-19-2020 Monocytes (Bld) [#/Vol] 0.9 10*3/uL 0.0-0.8 [facility] Automated blood platelet cou nt (count/volume)on 07-19-2020 Platelets (Bld) [#/Vol] 221 10*3/uL 150-450 [facility] Automated blood platelet jose antonio n volume measurementon 07-19-2020 Platelet mean volume (Bld) [Entitic vol] 9.4 fL 6.3-10.7 [facility] Automated eosinophil %on Eosinophils/100 WBC (Bld) 3.2 % [facility] Automated eosinophil counton 07-19-2020 Eosinophils (Bld) [#/Vol] 0.3 10*3/uL 0.0-0.45 [facility] Automated erythrocyte distri bution width ratioon 07-19-2020 Erythrocyte distribution width (RBC) [Ratio] 21.2 % 11.9-15.3 [facility] Automated erythrocyte mean c orpuscular hemoglobin (mass per erythrocyte)on 07-19-2020 MCH (RBC) [Entitic mass] 24.1 pg 24.7-34.3 [facility] Automated erythrocyte mean c orpuscular hemoglobin concentration measurement (mass/volon 07-19-2020 MCHC (RBC) [Mass/Vol] 31.0 g/dL 32.0-35.0 [facility] Automated erythrocyte mean c orpuscular volumeon 07-19-2020 MCV (RBC) [Entitic vol] 77.7 fL 80-100 [facility] Automated erythrocytes count in urine sediment (number/area)on 07-19-2020 RBC Auto (Urine sed) [#/Area] 10-19 [HPF] [facility] Automated leukocytes count i n urine sediment (number/area)on 07-19-2020 WBC Auto (Urine sed) [#/Area] Innumerable [HPF] [facility] Automated monocyte %on 07-19 Monocytes/100 WBC (Bld) 11.0 % [facility] Automated neutrophil %on Neutrophils/100 WBC (Bld) 49.4 % [facility] Automated urine color determ inationon 07-19-2020 Color (U) Yellow Yellow [facility] Blood anisocytosis detection on 07-19-2020 Anisocytosis Ql (Bld) Marked [facility] Blood erythrocytes automated count (number/volume)on 07-19-2020 RBC (Bld) [#/Vol] 5.04 10*6/uL 3.60-5.00 [facility] Blood hemoglobin measurement (mass/volume)on 07-19-2020 Hemoglobin (Bld) [Mass/Vol] 12.1 g/dL 11.8-15.4 [facility] Blood leukocytes automated c ount (number/volume)on 07-19-2020 WBC (Bld) [#/Vol] 8.4 10*3/uL 4.5-11.0 [facility] Blood neutrophil count by au tomated method (number/volume)on 07-19-2020 Neutrophils (Bld) [#/Vol] 4.2 10*3/uL 1.8-7.7 [facility] 07-19-2020 Natriuretic peptide B (Bld) [Mass/Vol] 357.0 pg/mL 5-100 [facility] Creatine kinase [Enzymatic a ctivity/volume] in Serum or Plasmaon 07-19-2020 CK [Catalytic activity/Vol] 81 U/L 22-269 [facility] Estimated glomerular filtrat ion rate (GFR) non- Americanon 07-19-2020 GFR/1.73 sq M predicted among non-blacks MDRD (S/P/Bld) [Vol rate/Area] mL/min/{1.73_m2} [facility] Hematocrit [Volume Fraction] of Blood by Automated counton 07-19-2020 Hematocrit (Bld) [Volume fraction] 39.2 % 34.0-46.4 [facility] Hematologyon 07-19-2020 Platelets (Bld) [#/Vol] Normal Normal [facility] PT Coag (PPP) [Time] 51.9 s 9.0-12.[address] [facility] Metabolic Panelon 07-19-2020 Magnesium [Mass/Vol] 2.1 mg/dL 1.6-2.[address] [facility] Otheron 07-19-2020 Acanthocytes Slight [facility] GFR/1.73 sq M.predicted MDRD (S/P/Bld) [Vol rate/Area] mL/min/{1.73_m2} [facility] Comment on above: GFR estimated refere nce range: According to KDOQI guidelines, <60 ml/min/1.73m2 is sufficient to diagnose a patient with chronic kidney disease. Nucleated RBC/100 WBC (Bld) [Ratio] 0.1 % 0-0.5 [facility] Creatinine Clearance (Chem 67.89 [facility] Platelet Morphology Comment Normal Normal [facility] Poikilocytosis Slight [facility] Schistocytes Slight [facility] Ovalocyte detectionon 2019 Ovalocytes LM Ql (Bld) Moderate [facility] Platelet poor plasma interna tional normalized ratio (INR) by coagulation assay (relaton 07-19-2020 INR Coag (PPP) [Relative time] 4.6 {INR} [facility] Comment on above: INR Therapeutic [...] Plasmaon 07-19-2020 Protein [Mass/Vol] 7.1 g/dL 6.1-7.9 [facility] RBC morphologyon 07-19-2020 RBC morphology finding Nom (Bld) N/A [facility] Serum globulin measurement b y calculation (mass/volume)on 07-19-2020 Globulin (S) [Mass/Vol] 3.2 g/dL [facility] Serum or plasma alanine hernandez otransferase measurement without P-5'-P (enzymatic activion 07-19-2020 ALT No additional P-5'-P [Catalytic activity/Vol] 32 U/L 10-60 [facility] Serum or plasma albumin/glob ulin mass ratioon 07-19-2020 Albumin/Globulin [Mass ratio] 1.2 {ratio} [facility] Serum or plasma alkaline rosanna sphatase measurement (enzymatic activity/volume)on 07-19-2020 ALP [Catalytic activity/Vol] 152 U/L 32-92 [facility] Serum or plasma aspartate am inotransferase measurement (enzymatic activity/volume)on 07-19-2020 AST [Catalytic activity/Vol] 42 U/L 10 [facility] Serum or plasma calcium jackie urement (mass/volume)on 07-19-2020 Calcium [Mass/Vol] 9.0 mg/dL 8.2-10.2 [facility] Serum or plasma cardiac trop onin I measurement (mass/volume)on 07-19-2020 Troponin I.cardiac [Mass/Vol] ng/mL 0-0.02 [facility] Comment on above: ELLA OR Cut off value > or equal to 0.03 ng/mL in conjunction with clinical conditions of myocardial infarction.([email or web address]) Serum or plasma chloride jose antonio surement (moles/volume)on 07-19-2020 Chloride [Moles/Vol] 104 mmol/L 95-[address] [facility] Serum or plasma creatine kin ase MB (CKMB)/total creatine kinase (CK) ratio by calculaon 07-19-2020 CK.MB Calc [Catalytic fraction] 3.3 0.00-2.50 [facility] Serum or plasma creatine kin ase MB measurement (mass/volume)on 07-19-2020 CK.MB [Mass/Vol] 2.7 ng/mL 0.6-6.3 [facility] Serum or plasma creatinine m easurement with calculation of estimated glomerular filtron 07-19-2020 Creatinine [Mass/Vol] 0.94 mg/dL 0.44-1.03 [facility] Serum or plasma glucose jackie urement (mass/volume)on 07-19-2020 Glucose [Mass/Vol] 98 mg/dL 70-100 [facility] Comment on above: ADA recommended refe rence rangeRandom Glucose Reference Range is dependent on time and content of last meal. Glucose of more than 200 mg/dL in a nonstressed, ambulatory subject supports the diagnosis of Diabetes Mellitus. Serum or plasma potassium me asurement (moles/volume)on 07-19-2020 Potassium [Moles/Vol] 4.7 mmol/L 3.5-5.1 [facility] Serum or plasma sodium measu rement (moles/volume)on 07-19-2020 Sodium [Moles/Vol] 139 mmol/L 136-146 [facility] Serum or plasma total biliru bin measurement (mass/volume)on 07-19-2020 Bilirubin [Mass/Vol] 0.5 mg/dL 0.3-1.[address] [facility] Serum or plasma total carbon dioxide measurement (moles/volume)on 07-19-2020 CO2 [Moles/Vol] 21.9 mmol/L 22.0-30.0 [facility] Serum or plasma urea nitroge n measurement (mass/volume)on 07-19-2020 Urea nitrogen [Mass/Vol] 17 mg/dL 05-22 [facility] Specific gravity of Urine by Automated test stripon 07-19-2020 Specific gravity (U) [Rel density] 1.015 1.001-1.03 0 [facility] Squamous epithelial cells de tection in urine sediment by light microscopyon 07-19-2020 Epithelial cells.squamous LM Ql (Urine sed) 0-1 [HPF] [facility] Urinalysison 07-19-2020 Hyaline casts LM Ql (Urine sed) 0-8 [LPF] [facility] Urine bacteria detection by automated methodon 07-19-2020 Bacteria Auto Ql (U) None seen None Seen [facility] Urine clarity by refractomet ry automatedon 07-19-2020 Clarity Refractometry automated (U) Clear Clear [facility] Urine culture routineon 07-01 Bacteria identified Cx Nom (U) 2 Days [facility] Urine glucose measurement by automated test strip (mass/volume)on 07-19-2020 Glucose Auto test strip (U) [Mass/Vol] Normal mg/dL Normal [facility] Urine hemoglobin detection b y automated test stripon 07-19-2020 Hemoglobin Auto test strip Ql (U) 1+ Negative [facility] Urine ketones measurement by automated test strip (mass/volume)on 07-19-2020 Ketones (U) [Mass/Vol] Negative Negative [facility] Urine leukocyte esterase det ection by automated test stripon 07-19-2020 Leukocyte esterase Auto test strip Ql (U) 4+ Negative [facility] Urine nitrite detection by t est stripon 07-19-2020 Nitrite Ql (U) Negative Negative [facility] Urine pH measurement by auto mated test stripon 07-19-2020 pH (U) 6.0 [pH] 5.0-9.0 [facility] Urine protein measurement by automated test strip (mass/volume)on 07-19-2020 Protein (U) [Mass/Vol] Negative Negative [facility] Urine total bilirubin detect ion by test stripon 07-19-2020 Bilirubin Ql (U) Negative Negative [facility] Urine urobilinogen measureme nt by automated test strip (mass/volume)on 07-19-2020 Urobilinogen (U) [Mass/Vol] Normal mg/dL Normal [facility] Activated partial thrombopla stin time (aPTT) in platelet poor plasma by coagulation aon 06-15-2020 aPTT Coag (PPP) [Time] 30.9 s 23.0-35.0 [facility] Automated basophil %on 06-15 Basophils/100 WBC (Bld) 1.0 % [facility] Automated basophil counton 1 Basophils (Bld) [#/Vol] 0.1 10*3/uL 0.0-0.2 [facility] Automated blood lymphocyte c ount (number/volume)on 06-15-2020 Lymphocytes (Bld) [#/Vol] 1.1 10*3/uL 1.00-4.8 [facility] Automated blood lymphocyte c ount as percentage of total leukocyteson 06-15-2020 Lymphocytes/100 WBC (Bld) 8.1 % [facility] Automated blood monocyte cou nton 06-15-2020 Monocytes (Bld) [#/Vol] 1.7 10*3/uL 0.0-0.8 [facility] Automated blood platelet cou nt (count/volume)on 06-15-2020 Platelets (Bld) [#/Vol] 170 10*3/uL 150-450 [facility] Automated blood platelet jose antonio n volume measurementon 06-15-2020 Platelet mean volume (Bld) [Entitic vol] 9.5 fL 6.3-10.7 [facility] Automated eosinophil %on Eosinophils/100 WBC (Bld) 0.1 % [facility] Automated eosinophil counton 06-15-2020 Eosinophils (Bld) [#/Vol] 0.0 10*3/uL 0.0-0.45 [facility] Automated erythrocyte distri bution width ratioon 06-15-2020 Erythrocyte distribution width (RBC) [Ratio] 26.0 % 11.9-15.3 [facility] Automated erythrocyte mean c orpuscular hemoglobin (mass per erythrocyte)on 06-15-2020 MCH (RBC) [Entitic mass] 23.8 pg 24.7-34.3 [facility] Automated erythrocyte mean c orpuscular hemoglobin concentration measurement (mass/volon 06-15-2020 MCHC (RBC) [Mass/Vol] 30.8 g/dL 32.0-35.0 [facility] Automated erythrocyte mean c orpuscular volumeon 06-15-2020 MCV (RBC) [Entitic vol] 77.4 fL 80-100 [facility] Automated monocyte %on 06-15 Monocytes/100 WBC (Bld) 12.7 % [facility] Automated neutrophil %on Neutrophils/100 WBC (Bld) 78.1 % [facility] Blood anisocytosis detection on 06-15-2020 Anisocytosis Ql (Bld) Moderate [facility] Blood erythrocytes automated count (number/volume)on 06-15-2020 RBC (Bld) [#/Vol] 4.75 10*6/uL 3.60-5.00 [facility] Blood hemoglobin measurement (mass/volume)on 06-15-2020 Hemoglobin (Bld) [Mass/Vol] 11.3 g/dL 11.8-15.4 [facility] Blood leukocytes automated c ount (number/volume)on 06-15-2020 WBC (Bld) [#/Vol] 13.3 10*3/uL 4.5-11.0 [facility] Blood neutrophil count by au tomated method (number/volume)on 06-15-2020 Neutrophils (Bld) [#/Vol] 10.4 10*3/uL 1.8-7.7 [facility] Body fluid albumin measureme nt (mass/volume)on 06-15-2020 Albumin (Body fld) [Mass/Vol] 3.0 g/dL 3.2-5.5 [facility] COVID-19 Detected/Not Detect edon 06-15-2020 COVID-19 Detected/Not Detected Not detected Not Detecte [facility] Comment on above: This is a duplicate test result based off of the RP2.1 COVID (EUA) test performed within the Microbiology department. [facility] 06-15-2020 Natriuretic peptide B (Bld) [Mass/Vol] 2832.0 pg/mL 5-100 [facility] Creatine kinase [Enzymatic a ctivity/volume] in Serum or Plasmaon 06-15-2020 CK [Catalytic activity/Vol] 125 U/L 22-269 [facility] Estimated glomerular filtrat ion rate (GFR) non- Americanon 06-15-2020 GFR/1.73 sq M predicted among non-blacks MDRD (S/P/Bld) [Vol rate/Area] 53 mL/min/{1.73_m2} [facility] Hematocrit [Volume Fraction] of Blood by Automated counton 06-15-2020 Hematocrit (Bld) [Volume fraction] 36.8 % 34.0-46.4 [facility] Hematologyon 06-15-2020 Platelets (Bld) [#/Vol] Normal Normal [facility] PT Coag (PPP) [Time] 51.7 s 9.0-12.[address] [facility] Otheron 06-15-2020 Crenated Cell Slight [facility] GFR/1.73 sq M.predicted MDRD (S/P/Bld) [Vol rate/Area] mL/min/{1.73_m2} [facility] Comment on above: GFR estimated refere nce range: According to KDOQI guidelines, <60 ml/min/1.73m2 is sufficient to diagnose a patient with chronic kidney disease. Microcytosis Moderate [facility] Nucleated RBC/100 WBC (Bld) [Ratio] 0.0 % 0-0.5 [facility] Creatinine Clearance (Chem 60.88 [facility] Platelet Morphology Comment Normal Normal [facility] Poikilocytosis Slight [facility] Respiratory Panel (PCR) [facility] Schistocytes Slight [facility] Ovalocyte detectionon 2019 Ovalocytes LM Ql (Bld) Slight Fi [facility] Platelet poor plasma interna tional normalized ratio (INR) by coagulation assay (relaton 06-15-2020 INR Coag (PPP) [Relative time] 4.6 {INR} [facility] Comment on above: INR Therapeutic [...] Plasmaon 06-15-2020 Protein [Mass/Vol] 5.9 g/dL 6.1-7.9 [facility] RBC morphologyon 06-15-2020 RBC morphology finding Nom (Bld) N/A [facility] Serum globulin measurement b y calculation (mass/volume)on 06-15-2020 Globulin (S) [Mass/Vol] 2.9 g/dL [facility] Serum or plasma alanine hernandez otransferase measurement without P-5'-P (enzymatic activion 06-15-2020 ALT No additional P-5'-P [Catalytic activity/Vol] 14 U/L 10-60 [facility] Serum or plasma albumin/glob ulin mass ratioon 06-15-2020 Albumin/Globulin [Mass ratio] 1.0 {ratio} [facility] Serum or plasma alkaline rosanna sphatase measurement (enzymatic activity/volume)on 06-15-2020 ALP [Catalytic activity/Vol] 150 U/L 32-92 [facility] Serum or plasma aspartate am inotransferase measurement (enzymatic activity/volume)on 06-15-2020 AST [Catalytic activity/Vol] 28 U/L 10-42 [facility] Serum or plasma calcium jackie urement (mass/volume)on 06-15-2020 Calcium [Mass/Vol] 8.6 mg/dL 8.2-10.2 [facility] Serum or plasma cardiac trop onin I measurement (mass/volume)on 06-15-2020 Troponin I.cardiac [Mass/Vol] 0.03 ng/mL 0-0.02 [facility] Comment on above: ELLA OR Cut off value > or equal to 0.03 ng/mL in conjunction with clinical conditions of myocardial infarction.([email or web address]) Serum or plasma chloride jose antonio surement (moles/volume)on 06-15-2020 Chloride [Moles/Vol] 109 mmol/L 95-[address] [facility] Serum or plasma creatine kin ase MB (CKMB)/total creatine kinase (CK) ratio by calculaon 06-15-2020 CK.MB Calc [Catalytic fraction] 1.5 0.00-2.50 [facility] Serum or plasma creatine kin ase MB measurement (mass/volume)on 06-15-2020 CK.MB [Mass/Vol] 1.9 ng/mL 0.6-6.3 [facility] Serum or plasma creatinine m easurement with calculation of estimated glomerular filtron 06-15-2020 Creatinine [Mass/Vol] 1.09 mg/dL 0.44-1.03 [facility] Serum or plasma glucose jackie urement (mass/volume)on 06-15-2020 Glucose [Mass/Vol] 139 mg/dL 70-100 [facility] Comment on above: ADA recommended refe rence rangeRandom Glucose Reference Range is dependent on time and content of last meal. Glucose of more than 200 mg/dL in a nonstressed, ambulatory subject supports the diagnosis of Diabetes Mellitus. Serum or plasma potassium me asurement (moles/volume)on 06-15-2020 Potassium [Moles/Vol] 4.6 mmol/L 3.5-5.1 [facility] Serum or plasma sodium measu rement (moles/volume)on 06-15-2020 Sodium [Moles/Vol] 142 mmol/L 136-146 [facility] Serum or plasma total biliru bin measurement (mass/volume)on 06-15-2020 Bilirubin [Mass/Vol] 0.7 mg/dL 0.3-1.[address] [facility] Serum or plasma total carbon dioxide measurement (moles/volume)on 06-15-2020 CO2 [Moles/Vol] 23.7 mmol/L 22.0-30.0 [facility] Serum or plasma urea nitroge n measurement (mass/volume)on 06-15-2020 Urea nitrogen [Mass/Vol] 6 mg/dL 9 [facility] Estimated glomerular filtrat ion rate (GFR) non- Americanon 06-07-2020 GFR/1.73 sq M predicted among non-blacks MDRD (S/P/Bld) [Vol rate/Area] mL/min/{1.73_m2} [facility] Otheron 06-07-2020 GFR/1.73 sq M.predicted MDRD (S/P/Bld) [Vol rate/Area] mL/min/{1.73_m2} [facility] Comment on above: GFR estimated refere nce range: According to KDOQI guidelines, <60 ml/min/1.73m2 is sufficient to diagnose a patient with chronic kidney disease. Pharmacy Creatinine Clearance (Chem 75.20 [facility] Serum or plasma calcium jackie urement (mass/volume)on 06-07-2020 Calcium [Mass/Vol] 8.2 mg/dL 8.2-10.2 [facility] Serum or plasma chloride jose antonio surement (moles/volume)on 06-07-2020 Chloride [Moles/Vol] 110 mmol/L 95-[address] [facility] Serum or plasma creatinine m easurement with calculation of estimated glomerular filtron 06-07-2020 Creatinine [Mass/Vol] 0.90 mg/dL 0.44-1.03 [facility] Serum or plasma glucose jackie urement (mass/volume)on 06-07-2020 Glucose [Mass/Vol] 83 mg/dL 70-100 [facility] Comment on above: ADA recommended refe rence rangeRandom Glucose Reference Range is dependent on time and content of last meal. Glucose of more than 200 mg/dL in a nonstressed, ambulatory subject supports the diagnosis of Diabetes Mellitus. Serum or plasma potassium me asurement (moles/volume)on 06-07-2020 Potassium [Moles/Vol] 4.4 mmol/L 3.5-5.1 [facility] Serum or plasma sodium measu rement (moles/volume)on 06-07-2020 Sodium [Moles/Vol] 138 mmol/L 136-146 [facility] Serum or plasma total carbon dioxide measurement (moles/volume)on 06-07-2020 CO2 [Moles/Vol] 19.1 mmol/L 22.0-30.0 [facility] Serum or plasma urea nitroge n measurement (mass/volume)on 06-07-2020 Urea nitrogen [Mass/Vol] 5 mg/dL 9-23 [facility] Automated basophil %on 06-06 Basophils/100 WBC (Bld) 0.9 % [facility] Automated basophil counton 1 Basophils (Bld) [#/Vol] 0.1 10*3/uL 0.0-0.2 [facility] Automated blood lymphocyte c ount (number/volume)on 06-06-2020 Lymphocytes (Bld) [#/Vol] 1.8 10*3/uL 1.00-4.8 [facility] Automated blood lymphocyte c ount as percentage of total leukocyteson 06-06-2020 Lymphocytes/100 WBC (Bld) 25.4 % [facility] Automated blood monocyte cou nton 06-06-2020 Monocytes (Bld) [#/Vol] 0.8 10*3/uL 0.0-0.8 [facility] Automated blood platelet cou nt (count/volume)on 06-06-2020 Platelets (Bld) [#/Vol] 130 10*3/uL 150-450 [facility] Automated blood platelet jose antonio n volume measurementon 06-06-2020 Platelet mean volume (Bld) [Entitic vol] 9.7 fL 6.3-10.7 [facility] Automated eosinophil %on Eosinophils/100 WBC (Bld) 4.1 % [facility] Automated eosinophil counton 06-06-2020 Eosinophils (Bld) [#/Vol] 0.3 10*3/uL 0.0-0.45 [facility] Automated erythrocyte distri bution width ratioon 06-06-2020 Erythrocyte distribution width (RBC) [Ratio] 28.2 % 11.9-15.3 [facility] Automated erythrocyte mean c orpuscular hemoglobin (mass per erythrocyte)on 06-06-2020 MCH (RBC) [Entitic mass] 24.3 pg 24.7-34.3 [facility] Automated erythrocyte mean c orpuscular hemoglobin concentration measurement (mass/volon 06-06-2020 MCHC (RBC) [Mass/Vol] 29.8 g/dL 32.0-35.0 [facility] Automated erythrocyte mean c orpuscular volumeon 06-06-2020 MCV (RBC) [Entitic vol] 81.5 fL 80-100 [facility] Automated monocyte %on 06-06 Monocytes/100 WBC (Bld) 10.6 % [facility] Automated neutrophil %on Neutrophils/100 WBC (Bld) 59.0 % [facility] Blood anisocytosis detection on 06-06-2020 Anisocytosis Ql (Bld) Marked [facility] Blood erythrocytes automated count (number/volume)on 06-06-2020 RBC (Bld) [#/Vol] 4.81 10*6/uL 3.60-5.00 [facility] Blood hemoglobin measurement (mass/volume)on 06-06-2020 Hemoglobin (Bld) [Mass/Vol] 11.7 g/dL 11.8-15.4 [facility] Blood leukocytes automated c ount (number/volume)on 06-06-2020 WBC (Bld) [#/Vol] 7.1 10*3/uL 3.8-11.6 [facility] Blood neutrophil count by au tomated method (number/volume)on 06-06-2020 Neutrophils (Bld) [#/Vol] 4.2 10*3/uL 1.8-7.7 [facility] Blood polychromasia detectio n by light microscopyon 06-06-2020 Polychromasia LM Ql (Bld) Slight [facility] Creatine kinase [Enzymatic a ctivity/volume] in Serum or Plasmaon 06-06-2020 CK [Catalytic activity/Vol] 141 U/L 22-269 [facility] Ferritin [Mass/volume] in Se rum or Plasmaon 06-06-2020 Ferritin [Mass/Vol] 27.5 ng/mL 11-306.8 [facility] Hematocrit [Volume Fraction] of Blood by Automated counton 06-06-2020 Hematocrit (Bld) [Volume fraction] 39.2 % 34.0-46.4 [facility] Hematologyon 06-06-2020 Platelets (Bld) [#/Vol] Decreased Normal [facility] Hypochromia detectionon Hypochromia Ql (Bld) Moderate [facility] Otheron 06-06-2020 Absolute Reticulocyte Count 0.131 10*6/uL 0.024-0.08 4 [facility] Microcytosis Slight [facility] Nucleated RBC/100 WBC (Bld) [Ratio] 0.1 % 0-0.5 [facility] Percent Reticulocyte Count 2.7 % 0.5-1.5 [facility] Platelet Morphology Comment Normal Normal [facility] Poikilocytosis Slight [facility] Schistocytes Rare [facility] Ovalocyte detectionon 2019 Ovalocytes LM Ql (Bld) Slight [facility] RBC morphologyon 06-06-2020 RBC morphology finding Nom (Bld) N/A [facility] Serum or plasma cardiac trop onin I measurement (mass/volume)on 06-06-2020 Troponin I.cardiac [Mass/Vol] 0.08 ng/mL 0-0.02 [facility] Comment on above: ELLA OR Cut off value > or equal to 0.03 ng/mL in conjunction with clinical conditions of myocardial infarction.([email or web address]) Serum or plasma creatine kin ase MB (CKMB)/total creatine kinase (CK) ratio by calculaon 06-06-2020 CK.MB Calc [Catalytic fraction] 4.1 0.00-2.50 [facility] Serum or plasma creatine kin ase MB measurement (mass/volume)on 06-06-2020 CK.MB [Mass/Vol] 5.8 ng/mL 0.6-6.3 [facility] Target cellson 06-06-2020 Target cells LM Ql (Bld) Slight [facility] Teardrop cell detectionon Dacrocytes LM Ql (Bld) Rare [facility] COVID-19 Positive/Negativeon 06-05-2020 COVID-19 Positive/Negative Negative Negative [facility] Comment on above: Testing for SARS-CoV -2 by RT-PCRThis test was developed and its performance characteristics determined by [employer] ([employer]) and validated at the [facility]. This test has not been FDA cleared [...] Otheron 06-05-2020 Coronavirus 2019 PCR Interp N/A [facility] Urine lactic acid measuremen ton 06-05-2020 Lactate (U) [Moles/Vol] 1.1 mmol/L [facility] Activated partial thrombopla stin time (aPTT) in platelet poor plasma by coagulation aon 06-04-2020 aPTT Coag (PPP) [Time] 28.9 s 23.0-35.0 [facility] 06-04-2020 Natriuretic peptide B (Bld) [Mass/Vol] 1836.0 pg/mL 5-100 [facility] Hematologyon 06-04-2020 PT Coag (PPP) [Time] 15.7 s 9.0-12.[address] [facility] Metabolic Panelon 06-04-2020 Magnesium [Mass/Vol] 1.7 mg/dL 1.6-2.[address] [facility] Otheron 06-04-2020 Crenated Cell Moderate [facility] Platelet poor plasma interna tional normalized ratio (INR) by coagulation assay (relaton 06-04-2020 INR Coag (PPP) [Relative time] 1.4 {INR} [facility] Comment on above: INR Therapeutic [...] gap molar conc 14 mmol/L Normal 10-20 [facility] Comment on above: Performed By: #### 1 [id number] #### [facility] [address] [place] [address]33 Calcium mass conc 8.8 mg/dL Normal 8.6-10.3 [facility] Comment on above: Performed By: #### 1 [id number] #### [facility] [address] [place] [address] Chloride molar conc 101 mmol/L Normal 98-107 [facility] Comment on above: Performed By: #### 1 [id number] #### [facility] [address] [place] [address] Creatinine mass conc 0.96 mg/dL Normal 0.50-1.05 [facility] Comment on above: Performed By: #### 1 [id number] #### [facility] [address] [place] [address] GFR/1.73 sq M.predicted MDRD vol rate/area mL/min/{1.73_m2} Normal [facility] Comment on above: Result Comment: Inte rpretation for Chronic Kidney Disease: Stages 1&2 >60 Healthy or potential kidney damage. Mild decrease of GFR. Stage 3 30-59 Moderate decrease of GFR. Stage 4 15-29 Severe decrease of GFR. Stage 5 <15 Kidney failure or on dialysis. Performed By: #### 1 [id number] #### [facility] [address] [place] [address] Glucose mass conc 81 mg/dL Normal 70-100 [facility] Comment on above: Performed By: #### 1 [id number] #### [facility] [address] [place] [address] HCO3 molar conc (Bld) 25 mmol/L Normal 21-32 [facility] Comment on above: Performed By: #### 1 [id number] #### [facility] [address] [place] [address] Potassium molar conc 4.4 mmol/L Normal 3.5-5.1 [facility] Comment on above: Performed By: #### 1 [id number] #### [facility] [address] [place] [address] Sodium molar conc 136 mmol/L Normal 136-145 [facility] Comment on above: Performed By: #### 1 [id number] #### [facility] [address] [place] [address] 14928 Urea nitrogen mass conc 11 mg/dL Normal 6-23 [facility] Comment on above: Performed By: #### 1 [id number] #### [facility] [address] [place] [address] 24961 Urea nitrogen/Creatinine mass ratio 11 mg/mg Normal 5-25 [facility] Comment on above: Performed By: #### 1 [id number] #### [facility] [address] [place] [address] Prothrombin Timeon 9 INR Coag RelTime (PPP) 1.06 {INR} Normal 0.90-1.10 [facility] Comment on above: Performed By: #### 1 [id number] #### [facility] [address] [place] [address] Prothrombin time (PT) Coag time (PPP) 12.0 s Normal 9.7-12.7 [facility] Comment on above: Result Comment: MEGAN RUBIN NOTE NEW REFERENCE RANGE EFFECTIVE 2018 Performed By: #### 1 [id number] #### [facility] [address] [place] [address] 97[address] Basic Metabolic Panelon 02-0 Anion gap molar conc 8 mmol/L Low 10-20 [facility] Comment on above: Performed By: #### 1 [id number] #### [facility] [address] [place] [address] 55892 Calcium mass conc 9.0 mg/dL Normal 8.6-10.3 [facility] Comment on above: Performed By: #### 1 [id number] #### [facility] [address] [place] [address] 69165 Chloride molar conc 100 mmol/L Normal 98-107 [facility] Comment on above: Performed By: #### 1 [id number] #### [facility] [address] [place] [address]307 Creatinine mass conc 1.05 mg/dL Normal 0.50-1.05 [facility] Comment on above: Performed By: #### 1 [id number] #### [facility] [address] [place] [address] 96882 GFR/1.73 sq M.predicted MDRD vol rate/area 56 mL/min/{1.73_m2} Normal [facility] Comment on above: Result Comment: Inte rpretation for Chronic Kidney Disease: Stages 1&2 >60 Healthy or potential kidney damage. Mild decrease of GFR. Stage 3 30-59 Moderate decrease of GFR. Stage 4 15-29 Severe decrease of GFR. Stage 5 <15 Kidney failure or on dialysis. Performed By: #### 1 [id number] #### [facility] [address] [place] [address] Glucose mass conc 78 mg/dL Normal 70-100 [facility] Comment on above: Performed By: #### 1 [id number] #### [facility] [address] [place] [address]649 HCO3 molar conc (Bld) 31 mmol/L Normal 21-32 [facility] Comment on above: Performed By: #### 1 [id number] #### [facility] [address] [place] [address] 215[address] Potassium molar conc 4.8 mmol/L Normal 3.5-5.1 [facility] Comment on above: Performed By: #### 1 [id number] #### [facility] [address] [place] [address]2510 Sodium molar conc 134 mmol/L Low 136-145 [facility] Comment on above: Performed By: #### 1 [id number] #### [facility] [address] [place] [address] 61346 Urea nitrogen mass conc 16 mg/dL Normal 6-23 [facility] Comment on above: Performed By: #### 1 [id number] #### [facility] [address] [place] [address]60 Urea nitrogen/Creatinine mass ratio 15 mg/mg Normal 5-25 [facility] Comment on above: Performed By: #### 1 [id number] #### [facility] [address] [place] [address] Prothrombin Timeon 9 INR Coag RelTime (PPP) 1.87 {INR} High 0.90-1.10 [facility] Comment on above: Performed By: #### 1 [id number] #### [facility] [address] [place] [address] Prothrombin time (PT) Coag time (PPP) 21.4 s High 9.7-12.7 [facility] Comment on above: Result Comment: KATHIFranco NOTE NEW REFERENCE RANGE EFFECTIVE 2018 Performed By: #### 1 [id number] #### [facility] [address] [place] [address] Activated Clotting Time Low Rangeon 08-04-2018 Activated Clotting Time Low Range 121 sec Normal [facility] Comment on above: Result Comment: Norm al: 96-167 Secs(Unheparinized) Stent Implant Range: >300 Secs Sheath Removal: 150-170 Secs CRRT: 180-220 Secs (Continous Renal Replacement Therapy) Performed By: #### 1 [id number] #### [facility] [address] [place] [address] Activated Clotting Time Low Range 180 sec Normal [facility] Comment on above: Result Comment: Norm al: 96-167 Secs(Unheparinized) Stent Implant Range: >300 Secs Sheath Removal: 150-170 Secs CRRT: 180-220 Secs (Continous Renal Replacement Therapy) Performed By: #### 1 [id number] #### [facility] [address] [place] [address] Activated Clotting Time Low Range 192 sec Normal [facility] Comment on above: Result Comment: Norm al: 96-167 Secs(Unheparinized) Stent Implant Range: >300 Secs Sheath Removal: 150-170 Secs CRRT: 180-220 Secs (Continous Renal Replacement Therapy) Performed By: #### 1 [id number] #### [facility] [address] [place] [address] CBCon 08-04-2018 Erythrocyte distribution width Ratio (RBC) 15.8 % High 12.0-15.4 [facility] Comment on above: Performed By: #### 1 [id number] #### [facility] [address] [place] [address] Hematocrit Volume Fraction (Bld) 41.8 % Normal 36.5-46.6 [facility] Comment on above: Performed By: #### 1 [id number] #### [facility] [address] [place] [address] Hemoglobin mass conc (Bld) 13.0 g/dL Normal 11.8-15.3 [facility] Comment on above: Performed By: #### 1 [id number] #### [facility] [address] [place] [address] MCH Entitic mass (RBC) 25.8 pg Low 27.5-33.0 [facility] Comment on above: Performed By: #### 1 [id number] #### [facility] [address] [place] [address] MCHC mass conc (RBC) 31.1 g/dL Normal 30.1-35.0 [facility] Comment on above: Performed By: #### 1 [id number] #### [facility] [address] [place] [address] MCV Entitic volume (RBC) 83.1 fL Low 85.4-100.0 [facility] Comment on above: Performed By: #### 1 [id number] #### [facility] [address] [place] [address]1992 NRBC Absolute 0.00 10*3/uL Normal [facility] Comment on above: Performed By: #### 1 [id number] #### [facility] [address] [place] [address] 21373 NRBC Automated 0.0 /100{WBCs} Normal [facility] Comment on above: Performed By: #### 1 [id number] #### [facility] [address] [place] [address] 64569 Platelet mean volume Entitic volume (Bld) 11.5 fL Normal 9.9-12.1 [facility] Comment on above: Performed By: #### 1 [id number] #### [facility] [address] [place] [address] 80572 Platelets #/vol (Bld) 233 10*3/uL Normal 155-404 [facility] Comment on above: Performed By: #### 1 [id number] #### [facility] [address] [place] [address] RBC #/vol (Bld) 5.03 10*6/uL Normal 3.85-5.10 [facility] Comment on above: Performed By: #### 1 [id number] #### [facility] [address] [place] [address]303 RDW SD 46.8 fL Normal 39.3-48.6 [facility] Comment on above: Performed By: #### 1 [id number] #### [facility] [address] [place] [address] 91841 WBC #/vol (Bld) 11.2 10*3/uL High 4.4-9.9 [facility] Comment on above: Performed By: #### 1 [id number] #### [facility] [address] [place] [address]3724 Prothrombin Timeon 8 INR Coag RelTime (PPP) 1.18 {INR} High 0.90-1.10 [facility] Comment on above: Performed By: #### 1 [id number] #### [facility] [address] [place] [address]3435 Prothrombin time (PT) Coag time (PPP) 13.4 s High 9.7-12.7 [facility] Comment on above: Result Comment: Delt a check investigation completed per policy PLEASE NOTE NEW REFERENCE RANGE EFFECTIVE 2018 Performed By: #### 1 [id number] #### [facility] [address] [place] [address] 71672 Basic Metabolic Panelon 12-0 Anion gap molar conc 14 mmol/L Normal 10-20 [facility] Comment on above: Performed By: #### 1 [id number] #### [facility] [address] [place] [address] 55667 Calcium mass conc 9.5 mg/dL Normal 8.6-10.3 [facility] Comment on above: Performed By: #### 1 [id number] #### [facility] [address] [place] [address] 98374 Chloride molar conc 103 mmol/L Normal 98-107 [facility] Comment on above: Performed By: #### 1 [id number] #### [facility] [address] [place] [address] [place] [address] Creatinine mass conc 0.94 mg/dL Normal 0.50-1.05 [facility] Comment on above: Performed By: #### 1 [id number] #### [facility] [address] [place] [address] 80900 GFR/1.73 sq M.predicted MDRD vol rate/area mL/min/{1.73_m2} Normal [facility] Comment on above: Result Comment: Inte rpretation for Chronic Kidney Disease: Stages 1&2 >60 Healthy or potential kidney damage. Mild decrease of GFR. Stage 3 30-59 Moderate decrease of GFR. Stage 4 15-29 Severe decrease of GFR. Stage 5 <15 Kidney failure or on dialysis. Performed By: #### 1 [id number] #### [facility] [address] [place] [address] 54857 Glucose mass conc 81 mg/dL Normal 70-100 [facility] Comment on above: Performed By: #### 1 [id number] #### [facility] [address] [place] [address] 17894 HCO3 molar conc (Bld) 26 mmol/L Normal 21-32 [facility] Comment on above: Performed By: #### 1 [id number] #### [facility] [address] [place] [address] 34557 Potassium molar conc 3.8 mmol/L Normal 3.5-5.1 [facility] Comment on above: Performed By: #### 1 [id number] #### [facility] [address] [place] [address] 70223 Sodium molar conc 139 mmol/L Normal 136-145 [facility] Comment on above: Performed By: #### 1 [id number] #### [facility] [address] [place] [address] Urea nitrogen mass conc 10 mg/dL Normal 6-23 [facility] Comment on above: Performed By: #### 1 [id number] #### [facility] [address] [place] [address] 35958 Urea nitrogen/Creatinine mass ratio 11 mg/mg Normal 5-25 [facility] Comment on above: Performed By: #### 1 [id number] #### [facility] [address] [place] [address] CBCon 08-02-2018 Erythrocyte distribution width Ratio (RBC) 15.9 % High 12.0-15.4 [facility] Comment on above: Performed By: #### 1 [id number] #### [facility] [address] [place] [address] Hematocrit Volume Fraction (Bld) 47.6 % High 36.5-46.6 [facility] Comment on above: Performed By: #### 1 [id number] #### [facility] [address] [place] [address] Hemoglobin mass conc (Bld) 14.3 g/dL Normal 11.8-15.3 [facility] Comment on above: Performed By: #### 1 [id number] #### [facility] [address] [place] [address] MCH Entitic mass (RBC) 26.1 pg Low 27.5-33.0 [facility] Comment on above: Performed By: #### 1 [id number] #### [facility] [address] [place] [address] MCHC mass conc (RBC) 30.0 g/dL Low 30.1-35.0 [facility] Comment on above: Performed By: #### 1 [id number] #### [facility] [address] [place] [address] MCV Entitic volume (RBC) 86.9 fL Normal 85.4-100.0 [facility] Comment on above: Performed By: #### 1 [id number] #### [facility] [address] [place] [address] NRBC Absolute 0.00 10*3/uL Normal [facility] [facility] Comment on above: Performed By: #### 1 [id number] #### [facility] [address] [place] [address] NRBC Automated 0.0 /100{WBCs} Normal [facility] Comment on above: Performed By: #### 1 [id number] #### [facility] [address] [place] [address] Platelet mean volume Entitic volume (Bld) 13.7 fL High 9.9-12.1 [facility] Comment on above: Performed By: #### 1 [id number] #### [facility] [address] [place] [address] Platelets #/vol (Bld) 223 10*3/uL Normal 155-404 [facility] Comment on above: Performed By: #### 1 [id number] #### [facility] [address] [place] [address] 50631 RBC #/vol (Bld) 5.48 10*6/uL High 3.85-5.10 [facility] Comment on above: Performed By: #### 1 [id number] #### [facility] [address] [place] [address] 64803 RDW SD 50.1 fL High 39.3-48.6 [facility] Comment on above: Performed By: #### 1 [id number] #### [facility] [address] [place] [address] 72595 WBC #/vol (Bld) 12.6 10*3/uL High 4.4-9.9 [facility] Comment on above: Performed By: #### 1 [id number] #### [facility] [address] [place] [address]015 Prothrombin Timeon 8 INR Coag RelTime (PPP) 3.04 {INR} High 0.90-1.10 [facility] Comment on above: Performed By: #### 1 [id number] #### [facility] [address] [place] [address] 76866 Prothrombin time (PT) Coag time (PPP) 35.1 s High 9.7-12.7 [facility] Comment on above: Result Comment: MEGAN RUBIN NOTE NEW REFERENCE RANGE EFFECTIVE 2018 Performed By: #### 1 [id number] #### [facility] [address] [place] [address] 97143 Basic Metabolic Panelon 11-0 Anion gap molar conc 11 mmol/L Normal 10-20 [facility] Comment on above: Performed By: #### 1 [id number] #### [facility] [address] [place] [address] Calcium mass conc 9.0 mg/dL Normal 8.6-10.3 [facility] Comment on above: Performed By: #### 1 [id number] #### [facility] [address] [place] [address] Chloride molar conc 99 mmol/L Normal 98-107 [facility] Comment on above: Performed By: #### 1 [id number] #### [facility] [address] [place] [address] Creatinine mass conc 1.00 mg/dL Normal 0.50-1.05 [facility] Comment on above: Performed By: #### 1 [id number] #### [facility] [address] [place] [address] 98023 GFR/1.73 sq M.predicted MDRD vol rate/area 59 mL/min/{1.73_m2} Normal [facility] Comment on above: Result Comment: Inte rpretation for Chronic Kidney Disease: Stages 1&2 >60 Healthy or potential kidney damage. Mild decrease of GFR. Stage 3 30-59 Moderate decrease of GFR. Stage 4 15-29 Severe decrease of GFR. Stage 5 <15 Kidney failure or on dialysis. Performed By: #### 1 [id number] #### [facility] [address] [place] [address] 20110 Glucose mass conc 81 mg/dL Normal 70-100 [facility] Comment on above: Performed By: #### 1 979110 #### [facility] [address] [place] [address] 90286 HCO3 molar conc (Bld) 27 mmol/L Normal 21-32 [facility] Comment on above: Performed By: #### 1 [id number] #### [facility] [address] [place] [address] 95912 Potassium molar conc 4.1 mmol/L Normal 3.5-5.1 [facility] Comment on above: Performed By: #### 1 [id number] #### [facility] [address] [place] [address] 13557 Sodium molar conc 133 mmol/L Low 136-145 [facility] Comment on above: Performed By: #### 1 [id number] #### [facility] [address] [place] [address] Urea nitrogen mass conc 14 mg/dL Normal 6-23 [facility] Comment on above: Performed By: #### 1 [id number] #### [facility] [address] [place] [address] Urea nitrogen/Creatinine mass ratio 14 mg/mg Normal 5-25 [facility] Comment on above: Performed By: #### 1 [id number] #### [facility] [address] [place] [address] Magnesiumon 07-01-2018 Magnesium mass conc 1.9 mg/dL Normal 1.6-2.4 [facility] Comment on above: Performed By: #### 1 [id number] #### [facility] [address] [place] [address] Prothrombin Timeon 8 INR Coag RelTime (PPP) 3.10 {INR} High 0.90-1.10 [facility] Comment on above: Performed By: #### 1 [id number] #### [facility] [address] [place] [address] Prothrombin time (PT) Coag time (PPP) 35.8 s High 9.7-12.7 [facility] Comment on above: Result Comment: PLEA SE NOTE NEW REFERENCE RANGE EFFECTIVE 2018 Performed By: #### 1 [id number] #### [facility] [address] [place] [address] Basic Metabolic Panelon 11-0 Anion gap molar conc 12 mmol/L Normal 10-20 [facility] Comment on above: Performed By: #### 1 [id number] #### [facility] [address] [place] [address] Calcium mass conc 9.0 mg/dL Normal 8.6-10.3 [facility] Comment on above: Performed By: #### 1 245621 #### [facility] [address] [place] [address] Chloride molar conc 101 mmol/L Normal 98-107 [facility] Comment on above: Performed By: #### 1 [id number] #### [facility] [address] [place] [address] Creatinine mass conc 1.04 mg/dL Normal 0.50-1.05 [facility] Comment on above: Performed By: #### 1 [id number] #### [facility] [address] [place] [address] GFR/1.73 sq M.predicted MDRD vol rate/area 56 mL/min/{1.73_m2} Normal [facility] Comment on above: Result Comment: Inte rpretation for Chronic Kidney Disease: Stages 1&2 >60 Healthy or potential kidney damage. Mild decrease of GFR. Stage 3 30-59 Moderate decrease of GFR. Stage 4 15-29 Severe decrease of GFR. Stage 5 <15 Kidney failure or on dialysis. Performed By: #### 1 [id number] #### [facility] [address] [place] [address] Glucose mass conc 89 mg/dL Normal 70-100 [facility] Comment on above: Performed By: #### 1 [id number] #### [facility] [address] [place] [address] HCO3 molar conc (Bld) 25 mmol/L Normal 21-32 [facility] Comment on above: Performed By: #### 1 [id number] #### [facility] [address] [place] [address] Potassium molar conc 4.3 mmol/L Normal 3.5-5.1 [facility] Comment on above: Performed By: #### 1 [id number] #### [facility] [address] [place] [address] Sodium molar conc 134 mmol/L Low 136-145 [facility] Comment on above: Performed By: #### 1 [id number] #### [facility] [address] [place] [address] Urea nitrogen mass conc 12 mg/dL Normal 6-23 [facility] Comment on above: Performed By: #### 1 [id number] #### [facility] [address] [place] [address] Urea nitrogen/Creatinine mass ratio 12 mg/mg Normal 5-25 [facility] Comment on above: Performed By: #### 1 [id number] #### [facility] [address] [place] [address] Magnesiumon 06-30-2018 Magnesium mass conc 2.0 mg/dL Normal 1.6-2.4 [facility] Comment on above: Performed By: #### 1 [id number] #### [facility] [address] [place] [address] Prothrombin Timeon 8 INR Coag RelTime (PPP) 2.93 {INR} High 0.90-1.10 [facility] Comment on above: Performed By: #### 2 [id number] #### [facility] [address] [place] [address]160 Prothrombin time (PT) Coag time (PPP) 33.9 s High 9.7-12.7 [facility] Comment on above: Result Comment: MEGAN RUBIN NOTE NEW REFERENCE RANGE EFFECTIVE 2018 Performed By: #### 2 [id number] #### [facility] [address] [place] [address] 61737 Basic Metabolic Panelon 06-01 Anion gap molar conc 8 mmol/L Low 10-20 [facility] Comment on above: Performed By: #### 2 493862 #### [facility] [address] [place] [address] 63128 Calcium mass conc 8.7 mg/dL Normal 8.6-10.3 [facility] Comment on above: Performed By: #### 2 293162 #### [facility] [address] [place] [address]1424 Chloride molar conc 103 mmol/L Normal 98-107 [facility] Comment on above: Performed By: #### 2 544086 #### [facility] [address] [place] [address] 70731 Creatinine mass conc 0.89 mg/dL Normal 0.50-1.05 [facility] Comment on above: Performed By: #### 2 657678 #### [facility] [address] [place] [address] 35888 GFR/1.73 sq M.predicted MDRD vol rate/area mL/min/{1.73_m2} Normal [facility] Comment on above: Result Comment: Inte rpretation for Chronic Kidney Disease: Stages 1&2 >60 Healthy or potential kidney damage. Mild decrease of GFR. Stage 3 30-59 Moderate decrease of GFR. Stage 4 15-29 Severe decrease of GFR. Stage 5 <15 Kidney failure or on dialysis. Performed By: #### 2 [id number] #### [facility] [address] [place] [address] Glucose mass conc 125 mg/dL High 70-100 [facility] Comment on above: Performed By: #### 2 859539 #### [facility] [address] [place] [address] HCO3 molar conc (Bld) 26 mmol/L Normal 21-32 [facility] Comment on above: Performed By: #### 2 585783 #### [facility] [address] [place] [address] Potassium molar conc 4.0 mmol/L Normal 3.5-5.1 [facility] Comment on above: Performed By: #### 2 047273 #### [facility] [address] [place] [address] Sodium molar conc 133 mmol/L Low 136-145 [facility] Comment on above: Performed By: #### 2 757945 #### [facility] [address] [place] [address] Urea nitrogen mass conc 10 mg/dL Normal 6-23 [facility] Comment on above: Performed By: #### 2 428866 #### [facility] [address] [place] [address] Urea nitrogen/Creatinine mass ratio 11 mg/mg Normal 5-25 [facility] Comment on above: Performed By: #### 2 [id number] #### [facility] [address] [place] [address] Magnesiumon 06-29-2018 Magnesium mass conc 1.8 mg/dL Normal 1.6-2.4 [facility] Comment on above: Performed By: #### 2 [id number] #### [facility] [address] [place] [address] Prothrombin Timeon 8 INR Coag RelTime (PPP) 3.23 {INR} High 0.90-1.10 [facility] Comment on above: Performed By: #### 2 [id number] #### [facility] [address] [place] [address] Prothrombin time (PT) Coag time (PPP) 37.4 s High 9.7-12.7 [facility] Comment on above: Result Comment: MEGAN RUBIN NOTE NEW REFERENCE RANGE EFFECTIVE 2018 Performed By: #### 2 [id number] #### [facility] [address] [place] [address] 80288 Basic Metabolic Panelon 06-01 Anion gap molar conc 11 mmol/L Normal 10-20 [facility] Comment on above: Performed By: #### 2 442131 #### [facility] [address] [place] [address] 28658 Calcium mass conc 8.5 mg/dL Low 8.6-10.3 [facility] Comment on above: Performed By: #### 2 [id number] #### [facility] [address] [place] [address] 68282 Chloride molar conc 104 mmol/L Normal 98-107 [facility] Comment on above: Performed By: #### 2 099688 #### [facility] [address] [place] [address]4543 Creatinine mass conc 0.90 mg/dL Normal 0.50-1.05 [facility] Comment on above: Performed By: #### 2 214655 #### [facility] [address] [place] [address] 36159 GFR/1.73 sq M.predicted MDRD vol rate/area mL/min/{1.73_m2} Normal [facility] Comment on above: Result Comment: Inte rpretation for Chronic Kidney Disease: Stages 1&2 >60 Healthy or potential kidney damage. Mild decrease of GFR. Stage 3 30-59 Moderate decrease of GFR. Stage 4 15-29 Severe decrease of GFR. Stage 5 <15 Kidney failure or on dialysis. Performed By: #### 2 [id number] #### [facility] [address] [place] [address] 97103 Glucose mass conc 99 mg/dL Normal 70-100 [facility] Comment on above: Performed By: #### 2 272973 #### [facility] [address] [place] [address] HCO3 molar conc (Bld) 23 mmol/L Normal 21-32 [facility] Comment on above: Performed By: #### 2 214471 #### [facility] [address] [place] [address] Potassium molar conc 4.3 mmol/L Normal 3.5-5.1 [facility] Comment on above: Performed By: #### 2 [id number] #### [facility] [address] [place] [address] Sodium molar conc 134 mmol/L Low 136-145 [facility] Comment on above: Performed By: #### 2 [id number] #### [facility] [address] [place] [address] Urea nitrogen mass conc 15 mg/dL Normal 6-23 [facility] Comment on above: Performed By: #### 2 311441 #### [facility] [address] [place] [address] Urea nitrogen/Creatinine mass ratio 17 mg/mg Normal 5-25 [facility] Comment on above: Performed By: #### 2 [id number] #### [facility] [address] [place] [address] Magnesiumon 06-28-2018 Magnesium mass conc 1.9 mg/dL Normal 1.6-2.4 [facility] Comment on above: Performed By: #### 2 408794 #### [facility] [address] [place] [address] Prothrombin Timeon 8 INR Coag RelTime (PPP) 4.27 {INR} High 0.90-1.10 [facility] Comment on above: Performed By: #### 2 391308 #### [facility] [address] [place] [address] Prothrombin time (PT) Coag time (PPP) 49.7 s High 9.7-12.7 [facility] Comment on above: Result Comment: MEGAN RUBIN NOTE NEW REFERENCE RANGE EFFECTIVE 2018 Performed By: #### 2 [id number] #### [facility] [address] [place] [address] Basic Metabolic Panelon 05-31 Anion gap molar conc 10 mmol/L Normal 10-20 [facility] Comment on above: Performed By: #### 2 121826 #### [facility] [address] [place] [address] Anion gap molar conc 12 mmol/L Normal 10-20 [facility] Comment on above: Performed By: #### 2 262641 #### [facility] [address] [place] [address] Calcium mass conc 8.6 mg/dL Normal 8.6-10.3 [facility] Comment on above: Performed By: #### 2 [id number] #### [facility] [address] [place] [address] Calcium mass conc 8.4 mg/dL Low 8.6-10.3 [facility] Comment on above: Performed By: #### 2 [id number] #### [facility] [address] [place] [address] Chloride molar conc 107 mmol/L Normal 98-107 [facility] Comment on above: Performed By: #### 2 292618 #### [facility] [address] [place] [address] Chloride molar conc 109 mmol/L High 98-107 [facility] Comment on above: Performed By: #### 2 775348 #### [facility] [address] [place] [address] Creatinine mass conc 1.05 mg/dL Normal 0.50-1.05 [facility] Comment on above: Performed By: #### 2 102966 #### [facility] [address] [place] [address] Creatinine mass conc 1.04 mg/dL Normal 0.50-1.05 [facility] Comment on above: Performed By: #### 2 291952 #### [facility] [address] [place] [address] GFR/1.73 sq M.predicted MDRD vol rate/area 56 mL/min/{1.73_m2} Normal [facility] Comment on above: Result Comment: Inte rpretation for Chronic Kidney Disease: Stages 1&2 >60 Healthy or potential kidney damage. Mild decrease of GFR. Stage 3 30-59 Moderate decrease of GFR. Stage 4 15-29 Severe decrease of GFR. Stage 5 <15 Kidney failure or on dialysis. Performed By: #### 2 [id number] #### [facility] [address] [place] [address] GFR/1.73 sq M.predicted MDRD vol rate/area 56 mL/min/{1.73_m2} Normal [facility] Comment on above: Result Comment: Inte rpretation for Chronic Kidney Disease: Stages 1&2 >60 Healthy or potential kidney damage. Mild decrease of GFR. Stage 3 30-59 Moderate decrease of GFR. Stage 4 15-29 Severe decrease of GFR. Stage 5 <15 Kidney failure or on dialysis. Performed By: #### 2 [id number] #### [facility] [address] [place] [address] Glucose mass conc 95 mg/dL Normal 70-100 [facility] Comment on above: Performed By: #### 2 [id number] #### [facility] [address] [place] [address] Glucose mass conc 84 mg/dL Normal 70-100 [facility] Comment on above: Performed By: #### 2 [id number] #### [facility] [address] [place] [address] HCO3 molar conc (Bld) 26 mmol/L Normal 21-32 [facility] Comment on above: Performed By: #### 2 [id number] #### [facility] [address] [place] [address] HCO3 molar conc (Bld) 21 mmol/L Normal 21-32 [facility] Comment on above: Performed By: #### 2 904102 #### [facility] [address] [place] [address] Potassium molar conc 4.3 mmol/L Normal 3.5-5.1 [facility] Comment on above: Performed By: #### 2 019459 #### [facility] [address] [place] [address] Potassium molar conc 4.5 mmol/L Normal 3.5-5.1 [facility] Comment on above: Performed By: #### 2 892527 #### [facility] [address] [place] [address] Sodium molar conc 139 mmol/L Normal 136-145 [facility] Comment on above: Performed By: #### 2 677553 #### [facility] [address] [place] [address] Sodium molar conc 138 mmol/L Normal 136-145 [facility] Comment on above: Performed By: #### 2 015611 #### [facility] [address] [place] [address] Urea nitrogen mass conc 17 mg/dL Normal 6-23 [facility] Comment on above: Performed By: #### 2 950908 #### [facility] [address] [place] [address] Urea nitrogen mass conc 16 mg/dL Normal 6-23 [facility] Comment on above: Performed By: #### 2 742095 #### [facility] [address] [place] [address] Urea nitrogen/Creatinine mass ratio 16 mg/mg Normal 5-25 [facility] Comment on above: Performed By: #### 2 727936 #### [facility] [address] [place] [address] Urea nitrogen/Creatinine mass ratio 15 mg/mg Normal 5-25 [facility] Comment on above: Performed By: #### 2 [id number] #### [facility] [address] [place] [address] CBC With Differentialon 05-31 Basophils #/vol (Bld) 0.11 10*3/uL High 0.01-0.07 [facility] Comment on above: Performed By: #### 2 250269 #### [facility] [address] [place] [address] Basophils/100 WBC (Bld) 1.2 % Normal 0.1-1.2 [facility] Comment on above: Performed By: #### 2 997565 #### [facility] [address] [place] [address] Eosinophils #/vol (Bld) 0.45 10*3/uL Normal 0.04-0.50 [facility] Comment on above: Performed By: #### 2 411158 #### [facility] [address] [place] [address] Eosinophils/100 WBC (Bld) 4.7 % Normal 0.0-8.1 [facility] Comment on above: Performed By: #### 2 949763 #### [facility] [address] [place] [address] Erythrocyte distribution width Ratio (RBC) 15.7 % High 12.0-15.4 [facility] Comment on above: Performed By: #### 2 [id number] #### [facility] [address] [place] [address] Hematocrit Volume Fraction (Bld) 38.5 % Normal 36.5-46.6 [facility] Comment on above: Performed By: #### 2 [id number] #### [facility] [address] [place] [address]11 Hemoglobin mass conc (Bld) 11.9 g/dL Normal 11.8-15.3 [facility] Comment on above: Performed By: #### 2 175104 #### [facility] [address] [place] [address] 26186 Imm Grans Absolute 0.09 10*3/uL Normal 0.00-0.21 [facility] Comment on above: Performed By: #### 2 [id number] #### [facility] [address] [place] [address]4725 Immature granulocytes #/vol (Bld) 0.9 % Normal [facility] Comment on above: Performed By: #### 2 730979 #### [facility] [address] [place] [address] 63180 Lymphocytes #/vol (Bld) 3.15 10*3/uL High 0.40-2.84 [facility] Comment on above: Performed By: #### 2 862643 #### [facility] [address] [place] [address] 01666 Lymphocytes/100 WBC (Bld) 33.2 % Normal 15.7-50.5 [facility] Comment on above: Performed By: #### 2 644243 #### [facility] [address] [place] [address] MCH Entitic mass (RBC) 26.1 pg Low 27.5-33.0 [facility] Comment on above: Performed By: #### 2 743270 #### [facility] [address] [place] [address] MCHC mass conc (RBC) 30.9 g/dL Normal 30.1-35.0 [facility] Comment on above: Performed By: #### 2 232193 #### [facility] [address] [place] [address] MCV Entitic volume (RBC) 84.4 fL Low 85.4-100.0 [facility] Comment on above: Performed By: #### 2 447157 #### [facility] [address] [place] [address] Monocytes #/vol (Bld) 0.91 10*3/uL High 0.25-0.83 [facility] Comment on above: Performed By: #### 2 043738 #### [facility] [address] [place] [address] Monocytes/100 WBC (Bld) 9.6 % Normal 4.8-12.7 [facility] Comment on above: Performed By: #### 2 635264 #### [facility] [address] [place] [address] Neutrophils Absolute 4.78 10*3/uL Normal 1.95-6.85 [facility] Comment on above: Performed By: #### 2 710653 #### [facility] [address] [place] [address] Neutrophils/100 WBC (Bld) 50.4 % Normal 36.8-73.2 [facility] Comment on above: Performed By: #### 2 457586 #### [facility] [address] [place] [address] NRBC Absolute 0.00 10*3/uL Normal [facility] Comment on above: Performed By: #### 2 140337 #### [facility] [address] [place] [address]642 NRBC Automated 0.0 /100{WBCs} Normal [facility] Comment on above: Performed By: #### 2 140313 #### [facility] [address] [place] [address]647 Platelet mean volume Entitic volume (Bld) 11.1 fL Normal 9.9-12.1 [facility] Comment on above: Performed By: #### 2 317505 #### [facility] [address] [place] [address]327 Platelets #/vol (Bld) 215 10*3/uL Normal 155-404 [facility] Comment on above: Performed By: #### 2 [id number] #### [facility] [address] [place] [address] 63826 RBC #/vol (Bld) 4.56 10*6/uL Normal 3.85-5.10 [facility] Comment on above: Performed By: #### 2 808351 #### [facility] [address] [place] [address] 55514 RDW SD 48.0 fL Normal 39.3-48.6 [facility] Comment on above: Performed By: #### 2 [id number] #### [facility] [address] [place] [address] 28251 WBC #/vol (Bld) 9.5 10*3/uL Normal 4.4-9.9 [facility] Comment on above: Performed By: #### 2 [id number] #### [facility] [address] [place] [address] 31818 Comprehensive Metabolic Pane selene 06-27-2018 Albumin mass conc 3.9 g/dL Normal 3.4-5.0 [facility] Comment on above: Performed By: #### 1 102173 #### [facility] [address] [place] [address] 69921 Albumin/Globulin mass ratio 1.3 {ratio} Normal 0.9-2.4 [facility] Comment on above: Performed By: #### 1 [id number] #### [facility] [address] [place] [address] 52202 ALP enzyme act/vol 150 U/L High 45-117 [facility] Comment on above: Performed By: #### 1 210473 #### [facility] [address] [place] [address] ALT enzyme act/vol 11 U/L Normal 7-45 [facility] Comment on above: Performed By: #### 1 436227 #### [facility] [address] [place] [address] Anion gap molar conc 13 mmol/L Normal 10-20 [facility] Comment on above: Performed By: #### 1 619758 #### [facility] [address] [place] [address] AST enzyme act/vol 21 U/L Normal 13-39 [facility] Comment on above: Performed By: #### 1 [id number] #### [facility] [address] [place] [address] Bilirubin mass conc 0.3 mg/dL Normal 0.0-1.2 [facility] [facility] Comment on above: Performed By: #### 1 [id number] #### [facility] [address] [place] [address] Calcium mass conc 9.0 mg/dL Normal 8.6-10.3 [facility] Comment on above: Performed By: #### 1 [id number] #### [facility] [address] [place] [address] Chloride molar conc 103 mmol/L Normal 98-107 [facility] Comment on above: Performed By: #### 1 [id number] #### [facility] [address] [place] [address] Creatinine mass conc 1.09 mg/dL High 0.50-1.05 [facility] Comment on above: Performed By: #### 1 [id number] #### [facility] [address] [place] [address] GFR/1.73 sq M.predicted MDRD vol rate/area 53 mL/min/{1.73_m2} Normal [facility] Comment on above: Result Comment: Inte rpretation for Chronic Kidney Disease: Stages 1&2 >60 Healthy or potential kidney damage. Mild decrease of GFR. Stage 3 30-59 Moderate decrease of GFR. Stage 4 15-29 Severe decrease of GFR. Stage 5 <15 Kidney failure or on dialysis. Performed By: #### 1 [id number] #### [facility] [address] [place] [address] Glucose mass conc 94 mg/dL Normal 70-100 [facility] Comment on above: Performed By: #### 1 [id number] #### [facility] [address] [place] [address] HCO3 molar conc (Bld) 27 mmol/L Normal 21-32 [facility] Comment on above: Performed By: #### 1 [id number] #### [facility] [address] [place] [address] Potassium molar conc 4.3 mmol/L Normal 3.5-5.1 [facility] Comment on above: Performed By: #### 1 [id number] #### [facility] [address] [place] [address] Protein mass conc 6.8 g/dL Normal 6.4-8.2 [facility] Comment on above: Performed By: #### 1 [id number] #### [facility] [address] [place] [address] Sodium molar conc 139 mmol/L Normal 136-145 [facility] Comment on above: Performed By: #### 1 [id number] #### [facility] [address] [place] [address] Urea nitrogen mass conc 19 mg/dL Normal 6-23 [facility] Comment on above: Performed By: #### 1 [id number] #### [facility] [address] [place] [address] Urea nitrogen/Creatinine mass ratio 17 mg/mg Normal 5-25 [facility] Comment on above: Performed By: #### 1 [id number] #### [facility] [address] [place] [address] Magnesiumon 06-27-2018 Magnesium mass conc 1.9 mg/dL Normal 1.6-2.4 [facility] Comment on above: Performed By: #### 1 [id number] #### [facility] [address] [place] [address] Magnesium mass conc 2.0 mg/dL Normal 1.6-2.4 [facility] Comment on above: Performed By: #### 2 [id number] #### [facility] [address] [place] [address] Partial Thromboplastin Timeo n 06-27-2018 aPTT Coag time (Bld) 29.7 s Normal 25.0-36.0 [facility] Comment on above: Result Comment: . The APTT is no longer used for monitoring Unfractionated Heparin Therapy. For monitoring Heparin Therapy, use the Heparin Assay. Performed By: #### 3 [id number] #### [facility] [address] [place] [address] Prothrombin Timeon 8 INR Coag RelTime (PPP) 2.98 {INR} High 0.90-1.10 [facility] Comment on above: Performed By: #### 3 [id number] #### [facility] [address] [place] [address] INR Coag RelTime (PPP) 3.54 {INR} High 0.90-1.10 [facility] Comment on above: Performed By: #### 3 [id number] #### [facility] [address] [place] [address] Prothrombin time (PT) Coag time (PPP) 33.4 s High 9.8-12.7 [facility] Comment on above: Performed By: #### 3 [id number] #### [facility] [address] [place] [address] Prothrombin time (PT) Coag time (PPP) 41.0 s High 9.7-12.7 [facility] Comment on above: Result Comment: PLEA NOTE NEW REFERENCE RANGE EFFECTIVE 2018 Performed By: #### 3 [id number] #### [facility] [address] [place] [address] TSHon 06-27-2018 Thyrotropin Qn 7.04 mU/L High 0.44-3.98 [facility] Comment on above: Performed By: #### 1 [id number] #### [facility] [address] [place] [address] Thyroxine, Freeon 06-27-2018 Thyroxine, Free 0.90 ng/dL Normal 0.61-1.12 [facility] Comment on above: Performed By: #### 1 [id number] #### [facility] [address] [place] [address] Triiodothyronine, Freeon Triiodothyronine, Free 2.3 pg/mL Normal 1.8-4.2 [facility] Comment on above: Performed By: #### F RT3 #### [facility] [address] [place] [address] Drugs of Abuse, Urine(7)on 0 05-12-2018 Amphetamines/Metamphet amines, Urine Not Detected Normal [facility] Comment on above: Performed By: #### 7 [id number] #### [facility] [address] [place] [address] Barbiturates, Urine Detected Abnormal [facility] Comment on above: Performed By: #### 7 [id number] #### [facility] [address] [place] [address] Benzodiazepines, Urine Not Detected Normal [facility] Comment on above: Performed By: #### 7 [id number] #### [facility] [address] [place] [address] Cannabinoids, Urine Not Detected Normal [facility] Comment on above: Performed By: #### 7 [id number] #### [facility] [address] [place] [address] Cocaine, Urine Not Detected Normal [facility] Comment on above: Performed By: #### 7 [id number] #### [facility] [address] [place] [address] Methadone, Urine Not Detected Normal [facility] Comment on above: Performed By: #### 7 [id number] #### [facility] [address] [place] [address] Opiates, Urine Not Detected Normal [facility] Comment on above: Performed By: #### 7 [id number] #### [facility] [address] [place] [address] PCP, Urine Not Detected Normal [facility] Comment on above: Result Comment: Urin e toxicology screen results are to be used for medical purposes only. It is recommended that any result reported as Detected be confirmed by a more specific alternative chemical method. Drug Analyzed Cutoff Concentration(ng/mL) Barbiturates 200 Benzodiazepines 200 Cocaine 150 Opiates 300 Amphetamines 500 Cannabinoids 50 Methadone 150 PCP 25 Performed By: #### 7 [id number] #### [facility] [address] [place] [address] Social History Date Type Detail Facility Start: 09-02-2023 End: 10-08-2023 Alcohol intake Current drinker of alcohol (finding) [facility] Work Phone: Start: 08-31-2023 Alcohol Comment rare [facility] Work Phone: Start: 08-23-2023 End: 09-29-2023 Exposure to SARS-CoV-2 (event) Not sure [facility] Start: 12-28-2021 End: 01-07-2022 Exposure to SARS-CoV-2 (event) Unable to assess [facility] Start: 10-13-2021 Alcohol intake Current non-dr triage technician of alcohol (finding) [facility] Start: 10-13-2021 End: 11-11-2023 Tobacco smoking status NHIS Smoker (finding) [facility] Start: 05-20-2021 End: 10-06-2023 No illicit drug use No illicit drug use [facility] Work Phone: Comment on above: QUIT 02/2018; QUIT 02/2018 had res tarted then requit 08/2021; Start: 05-20-2021 End: 09-29-2023 Tobacco smoking status NHIS Smokes tobacco daily [facility] Start: 05-20-2021 End: 10-06-2023 Tobacco use and exposure Smokeless tobacco non-user [facility] Start: 05-20-2021 End: 09-29-2023 Alcohol intake Ex-drinker (finding) [facility] Start: 05-20-2021 End: 10-06-2023 Sex Assigned At [facility] Work Phone: Start: 08-16-2020 End: 01-24-2024 Tobacco smoking status NHIS Ex-smoker (finding) [facility] Start: 06-17-2020 History SDOH Financial 5 [facility] Start: 06-17-2020 History SDOH Food Worry 1 [facility] Start: 06-17-2020 History SDOH Transport Med 2 [facility] Start: 02-05-2013 Alcohol Comment special occasi ons couple drinks [facility] Start: 02-24-2012 Tobacco Comment 5 cigarettes a day [facility] Start: 10-07-2006 End: 08-30-2021 History of tobacco use Cigarette Smoker [facility] Start: 1970 Sex Assigned At Female F [facility] Start: 1970 Sex Assigned At Not on file [facility] How hard is it for you to pay for the very basics like food, housing, medical care, and heating Not hard at all [facility] Work Phone: (I/We) worried whether (my/our) food would run out before (I/we) got money to buy more. Never true [facility] Work Phone: Has the electric, gas, oil, or water company threatened to shut off services in your home in past 12Mo No [employer] NEGATED: Highlighted row [facility] Vital Signs Date Time Vital Sign Value Performing Clinician Facility 01-24-2024 07:01-0400 Diastolic blood pressure 56 mm[Hg] MD Tanner Mae Jr Work Phone: [facility] 01-24-2024 07:01-0400 Heart rate 80 /min MD Tanner Mae Jr Work Phone: [facility] 01-24-2024 07:01-0400 Respiratory rate 14 /min MD Tanner Mae Jr Work Phone: [facility] 01-24-2024 07:01-0400 SaO2% (BldA) [Mass fraction] 100 % MD Tanner Mae Jr Work Phone: [facility] 01-24-2024 07:01-0400 Systolic blood pressure 117 mm[Hg] MD Tanner Mae Jr Work Phone: [facility] 01-24-2024 00:46-0400 Body height 152.4 cm MD Tanner Mae Jr Work Phone: [facility] 01-24-2024 00:46-0400 Body temperature 97.6 [degF] MD Tanner Mae Jr Work Phone: [facility] 01-24-2024 00:46-0400 Body weight 65.31 kg MD Tanner Mae Jr Work Phone: [facility] 11-11-2023 16:14-0400 Body height 152.4 cm DO Darian Itzkowitz Work Phone: [facility] 11-11-2023 16:14-0400 Body mass index (BMI) [Ratio] 29.2 kg/m2 DO Darian Itzkowitz Work Phone: [facility] 11-11-2023 16:14-0400 Body temperature 97.8 [degF] DO Darian Itzkowitz Work Phone: [facility] 11-11-2023 16:14-0400 Body weight 68.03 kg DO Darian Itzkowitz Work Phone: [facility] 11-11-2023 16:14-0400 Diastolic blood pressure 68 mm[Hg] DO Darian Itzkowitz Work Phone: [facility] 11-11-2023 16:14-0400 Heart rate 88 /min DO Darian Itzkowitz Work Phone: [facility] 11-11-2023 16:14-0400 Respiratory rate 18 /min DO Darian Itzkowitz Work Phone: [facility] 11-11-2023 16:14-0400 SaO2% (BldA) [Mass fraction] 99 % DO Darian Itzkowitz Work Phone: [facility] 11-11-2023 16:14-0400 Systolic blood pressure 134 mm[Hg] DO Darian Smiley Work Phone: [facility] 10-07-2023 08:44-0500 Diastolic blood pressure 77 mm[Hg] Noman Glover MD Work Phone: [employer] 10-07-2023 08:44-0500 Heart rate 80 /min Noman Glover MD Work Phone: [employer] 10-07-2023 08:44-0500 Systolic blood pressure 113 mm[Hg] Noman Glover MD Work Phone: [employer] 10-07-2023 08:00-0500 Body temperature 99.3 [degF] Noman Glover MD Work Phone: [employer] 10-07-2023 08:00-0500 Respiratory rate 18 /min Noman Glover MD Work Phone: [employer] 10-07-2023 08:00-0500 SaO2% (BldA) [Mass fraction] 97 % Noman Glover MD Work Phone: [facility] 10-06-2023 04:41-0500 Body mass index (BMI) [Ratio] 26.61 kg/m2 Noman Glover MD Work Phone: [employer] 10-06-2023 04:41-0500 Body weight 66 kg Noman Glover MD Work Phone: [employer] 10-05-2023 19:24-0500 Body height 157.5 cm Noman Glover MD Work Phone: [employer] 09-29-2023 08:20-0500 SaO2% (BldA) [Mass fraction] 98 % Margareth Nunez MD Work Phone: [facility] 09-29-2023 06:08-0500 Body height 157.5 cm Margareth Nunez MD Work Phone: [facility] 09-29-2023 06:08-0500 Body mass index (BMI) [Ratio] 27.46 kg/m2 Margareth Nunez MD Work Phone: [facility] 09-29-2023 06:08-0500 Body temperature 98.8 [degF] Margareth Nunez MD Work Phone: [facility] 09-29-2023 06:08-0500 Body weight 68.1 kg Margareth Nunez MD Work Phone: [facility] 09-29-2023 06:08-0500 Diastolic blood pressure 63 mm[Hg] Margareth Nunez MD Work Phone: [facility] 09-29-2023 06:08-0500 Heart rate 81 /min Margareth Nunez MD Work Phone: [facility] 09-29-2023 06:08-0500 Respiratory rate 16 /min Margareth Nunez MD Work Phone: [facility] 09-29-2023 06:08-0500 Systolic blood pressure 119 mm[Hg] Margareth Nunez MD Work Phone: [facility] 04-24-2022 13:31-0400 Body height 157.48 cm Shaikh Crystal Work Phone: [facility] [address] DO Work Phone: 04-24-2022 13:31-0400 Body mass index (BMI) [Ratio] 29.63 kg/m2 Shaikh Crystal Work Phone: [facility] DO Work Phone: 04-24-2022 13:31-0400 Body surface area Derived from formula 1.75 m2 Shaikh Crystal Work Phone: [facility] DO Work Phone: 04-24-2022 13:31-0400 Body weight 73.48 kg Shaikh Crystal Work Phone: [facility] DO Work Phone: 04-24-2022 13:31-0400 Diastolic blood pressure 60 mm[Hg] Shaikh Crystal Work Phone: [facility] DO Work Phone: 04-24-2022 13:31-0400 Heart rate 85 /min Shaikh Crystal Work Phone: [facility] DO Work Phone: 04-24-2022 13:31-0400 Systolic blood pressure 102 mm[Hg] Shaikh Crystal Work Phone: [facility] DO Work Phone: 12-10-2021 06:30-0400 Body height 160.02 cm Jeane [employer] [place] [employer] Other 12-05-2021 08:47-0400 Body height 157.48 cm No PCP None [facility] DO Work Phone: 12-05-2021 08:47-0400 Body mass index (BMI) [Ratio] 27.49 kg/m2 No PCP None [facility] DO Work Phone: 12-05-2021 08:47-0400 Body surface area Derived from formula 1.69 m2 No PCP None [facility] DO Work Phone: 12-05-2021 08:47-0400 Body weight 68.18 kg No PCP None [facility] DO Work Phone: 12-05-2021 08:47-0400 Diastolic blood pressure 72 mm[Hg] No PCP None [facility] DO Work Phone: 12-05-2021 08:47-0400 Heart rate 76 /min No PCP None [facility] DO Work Phone: 12-05-2021 08:47-0400 Systolic blood pressure 104 mm[Hg] No PCP None [facility] DO Work Phone: 10-14-2021 11:23-0500 20 1 Nadir Hoskins DO Work Phone: [facility] [facility] DO Work Phone: Comment on above: [id number] 10-13-2021 22:41-0500 Diastolic blood pressure 46 mm[Hg] DO Darian Itzkowitz Work Phone: [facility] 10-13-2021 22:41-0500 Heart rate 59 /min DO Darian Itzkowitz Work Phone: [facility] 10-13-2021 22:41-0500 Systolic blood pressure 80 mm[Hg] DO Darian Itzkowitz Work Phone: [facility] 10-13-2021 21:29-0500 Respiratory rate 18 /min DO Darian Itzkowitz Work Phone: [facility] 10-13-2021 21:29-0500 SaO2% (BldA) [Mass fraction] 96 % DO Darian Itzkowitz Work Phone: [facility] 10-13-2021 13:17-0500 Body height 160.02 cm DO Darian Itzkowitz Work Phone: [facility] 10-13-2021 13:17-0500 Body mass index (BMI) [Ratio] 26.5 kg/m2 DO Darian Itzkowitz Work Phone: [facility] 10-13-2021 13:17-0500 Body temperature 97.4 [degF] DO Darian Itzkowitz Work Phone: [facility] 10-13-2021 13:17-0500 Body weight 68.03 kg DO Darian Smiley Work Phone: [facility] 11-25-2020 15:56-0400 Body Temperature 97.5 [degF] Dariandebbie Smiley [facility] 11-25-2020 15:56-0400 BP Diastolic 85 mm[Hg] [facility] Baljit [facility] 11-25-2020 15:56-0400 BP Systolic 130 mm[Hg] [facility] Baljit [facility] 11-25-2020 15:56-0400 Pulse (Heart Rate) 79 /min [facility] Baljit [facility] 11-25-2020 15:56-0400 Pulse Oximetry 98 % [facility] Baljit [facility] 11-25-2020 15:56-0400 Respiratory Rate 18 /min [facility] Baljit [facility] 11-25-2020 15:56-0400 SaO2% (BldA) [Mass fraction] 98 % Dariandebbie Smiley Work Phone: [facility] 11-25-2020 15:19-0400 Height 157.48 cm [facility] Baljit [facility] 11-25-2020 05:57-0400 Body weight 83.9 kg [facility] Baljit [facility] 11-23-2020 18:10-0400 BMI (Body Mass Index) 33.9 kg/m2 [facility] 11-23-2020 18:10-0400 Body Temperature 97.9 [degF] [facility] Baljit [facility] 11-23-2020 18:10-0400 Body weight 84.2 kg [facility] Baljit [facility] 11-23-2020 18:10-0400 BP Diastolic 81 mm[Hg] Darian Baljit [facility] 11-23-2020 18:10-0400 BP Systolic 121 mm[Hg] Darian Itmary [facility] 11-23-2020 18:10-0400 Height 157.48 cm [facility] Baljit [facility] 11-23-2020 18:10-0400 Pulse (Heart Rate) 83 /min Darian Baljit [facility] 11-23-2020 18:10-0400 Pulse Oximetry 97 % Darian Baljit [facility] 11-23-2020 18:10-0400 Respiratory Rate 19 /min Darian Baljit [facility] 08-17-2020 03:00-0500 Body Temperature 97.5 [degF] [facility] Baljit [facility] 08-17-2020 03:00-0500 BP Diastolic 52 mm[Hg] Darian Baljit [facility] 08-17-2020 03:00-0500 BP Systolic 98 mm[Hg] Darian Baljit [facility] 08-17-2020 03:00-0500 Pulse (Heart Rate) 94 /min Darian [facility] 08-17-2020 03:00-0500 Pulse Oximetry 99 % [facility] Baljit [facility] 08-17-2020 03:00-0500 Respiratory Rate 16 /min Darian Baljit [facility] 08-16-2020 22:30-0500 BMI (Body Mass Index) 4648.4 kg/m2 [facility] 08-16-2020 22:30-0500 Body weight 81.1 kg [facility] Baljit [facility] 08-16-2020 22:30-0500 Height 13.21 cm [facility] 08-16-2020 22:18-0500 BP Diastolic 56 mm[Hg] Darian Baljit [facility] 08-16-2020 22:18-0500 BP Systolic 107 mm[Hg] Darian Baljit [facility] 08-16-2020 22:18-0500 Pulse (Heart Rate) 96 /min [facility] Baljit [facility] 08-16-2020 22:18-0500 Pulse Oximetry 95 % Darian Baljit [facility] 08-16-2020 22:18-0500 Respiratory Rate 18 /min [facility] Baljit [facility] 08-16-2020 15:38-0500 BMI (Body Mass Index) 28.3 kg/m2 [facility] 08-16-2020 15:38-0500 Body Temperature 97.4 [degF] [facility] Baljit [facility] 08-16-2020 15:38-0500 Body weight 72.57 kg [facility] Baljit [facility] 08-16-2020 15:38-0500 Height 160.02 cm [facility] Baljit [facility] 07-26-2020 01:57-0500 BP Diastolic 58 mm[Hg] [facility] Baljit [facility] 07-26-2020 01:57-0500 BP Systolic 118 mm[Hg] [facility] Baljit [facility] 07-26-2020 01:57-0500 Pulse (Heart Rate) 59 /min [facility] Baljit [facility] 07-26-2020 01:57-0500 Pulse Oximetry 97 % [facility] Baljit [facility] 07-26-2020 01:57-0500 Respiratory Rate 16 /min [facility] Baljit [facility] 07-26-2020 00:44-0500 BMI (Body Mass Index) 30.5 kg/m2 [facility] 07-26-2020 00:44-0500 Body Temperature 98.4 [degF] Darianrakesh Smiley [facility] 07-26-2020 00:44-0500 Body weight 75.74 kg [facility] Baljit [facility] 07-26-2020 00:44-0500 Height 157.48 cm [facility] Baljit [facility] 07-22-2020 22:23-0500 BP Diastolic 63 mm[Hg] Darian Baljit [facility] 07-22-2020 22:23-0500 BP Systolic 131 mm[Hg] Darian Baljit [facility] 07-22-2020 22:23-0500 Pulse (Heart Rate) 60 /min [facility] Baljit [facility] 07-22-2020 22:23-0500 Pulse Oximetry 98 % [facility] Baljit [facility] 07-22-2020 22:23-0500 Respiratory Rate 18 /min [facility] Baljit [facility] 07-22-2020 17:54-0500 BMI (Body Mass Index) 31.8 kg/m2 [facility] 07-22-2020 17:54-0500 Body Temperature 98 [degF] [facility] Baljit [facility] 07-22-2020 17:54-0500 Body weight 78.9 kg [facility] Baljit [facility] 07-22-2020 17:54-0500 Height 157.48 cm [facility] Baljit [facility] 07-19-2020 10:11-0500 BP Diastolic 60 mm[Hg] [facility] Baljit [facility] 07-19-2020 10:11-0500 BP Systolic 138 mm[Hg] [facility] Baljit [facility] 07-19-2020 10:11-0500 Pulse (Heart Rate) 94 /min [facility] Baljit [facility] 07-19-2020 10:11-0500 Pulse Oximetry 98 % Darian Baljit [facility] 07-19-2020 10:11-0500 Respiratory Rate 16 /min [facility] Baljit [facility] 07-19-2020 07:25-0500 BMI (Body Mass Index) 30.9 kg/m2 [facility] 07-19-2020 07:25-0500 Body Temperature 98 [degF] [facility] Baljit [facility] 07-19-2020 07:25-0500 Body weight 76.7 kg [facility] Baljit [facility] 07-19-2020 07:25-0500 Height 157.48 cm [facility] Baljit [facility] 06-15-2020 21:00-0400 Body Temperature 98.1 [degF] [facility] Baljit [facility] 06-15-2020 21:00-0400 BP Diastolic 77 mm[Hg] Darian [facility] 06-15-2020 21:00-0400 BP Systolic 124 mm[Hg] [facility] Baljit [facility] 06-15-2020 21:00-0400 Pulse (Heart Rate) 61 /min [facility] Baljit [facility] 06-15-2020 21:00-0400 Pulse Oximetry 96 % [facility] Baljit [facility] 06-15-2020 21:00-0400 Respiratory Rate 16 /min [facility] Baljit [facility] 06-15-2020 17:00-0400 BMI (Body Mass Index) 30.9 kg/m2 [facility] 06-15-2020 17:00-0400 Body weight 76.7 kg [facility] 06-15-2020 17:00-0400 Height 157.48 cm [facility] 06-07-2020 17:00-0400 Body Temperature 97.2 [degF] Darian Baljit [facility] 06-07-2020 17:00-0400 BP Diastolic 71 mm[Hg] [facility] 06-07-2020 17:00-0400 BP Systolic 104 mm[Hg] [facility] 06-07-2020 17:00-0400 Pulse (Heart Rate) 60 /min [facility] [facility] 17:00-0400 Pulse Oximetry 98 % [facility] 06-07-2020 17:00-0400 Respiratory Rate 14 /min [facility] 06-07-2020 06:56-0400 Body weight 84.1 kg [facility] 06-05-2020 14:28-0400 Height 157.48 cm [facility] 06-05-2020 06:29-0400 BMI (Body Mass Index) 32.8 kg/m2 [facility] Functional Status Date Assessment Result Facility 11-25-2020 Functional status Patient at [facility] 11-23-2020 Functional status Patient at [facility] 08-17-2020 Functional status Patient at [facility] 08-17-2020 Functional status Disability Sta tus Patient at Baseline [facility] 06-15-2020 Functional status Patient at [facility] 06-05-2020 Functional status Patient at [facility] Mental Status Date Assessment Result Facility 11-25-2020 Cognitive function Cognitive Sta tus Patient at [facility] 11-23-2020 Cognitive function Cognitive Sta tus Patient at Baseline [facility] 08-17-2020 Cognitive function Cognitive Sta tus Patient at [facility] 06-15-2020 Cognitive function Cognitive Sta tus Patient at Baseline [facility] 06-05-2020 Cognitive function Cognitive Sta tus Patient at [facility] Clinical Notes 06-15-2020 to 01-06-2024 Heydi Jiang, [facility] - 10/12/2023 3:50 PM Marcelo Clay, [facility] - 10/11/2023 1:30 PM Julio Cesar Sav[place] - 10/07/2023 11:37 AM Marcelo Esposito, [facility] - 10/07/2023 8:44 AM ESTDischarranjan Instructions Note Date & Type Note Facility 01-06-2024 Note Date of Service: 01/03 Procedure: Diagnostic cerebral angiogram Patient arrived to the angio suite at: 11:41a Puncture obtained at: 12:06p Vascular access was removed at: 12:40 Manual pressure for minutes: 10 Patient wheeled out of the angio suite at: 1:02p Diagnosis: L ICA cavernous segment aneurysm Procedures: --Right ultrasound guided femoral artery access --Intravenous moderate sedation for 60 minutes --Selective right common carotid artery (CCA) angiogram --Selective right internal carotid artery (ICA) cerebral angiogram --Selective left common carotid artery (CCA) angiogram --Selective left internal carotid artery (ICA) cerebral angiogram -- left ICA artery 3d rotational angiography with reconstruction on an external workstation --Selective left vertebral artery (VA) cerebral angiogram --Right common femoral artery (DEHYDROGENATION SUPERVISOR) angiogram Neurointerventionalist: Pedro Fan MD [place]: Garry New MD Contrast: 98 cc of Visipaque-270. Fluoroscopy time: 7.0 minutes Access: Right common femoral artery. Comparison: CTA H AND N 09/2023 Consent: After explaining the risks and benefits to the patient and the patient's family, including but not limited to stroke, coma, , vessel injury, dissection, tear, occlusion, and X-ray dye allergic type reaction, a signed consent form was obtained. Indication and Clinical History: 53 yo woman with noted left cavernous ica aneurysms. Cerebral angiogram for further treatment planning. Referred by Dr. Robles for DSA iv moderate sedation Anesthesia: Anesthesia/sedation initiated at: 12:00 Anesthesia/sedation completed at: 1:00 Total anesthesia/sedation: 60 mins. Local anesthesia with lidocaine. IV moderate sedation with Versed and Fentanyl IV moderate sedation was supervised by the attending physician. The patient was independently monitored by a registered nurse assigned to the Department of Radiology using automated blood pressure, EKG and pulse oximetry. The detailed Conscious Record is permanently stored in the Hospital Information System.. Description and findings: The patient's right groin was prepped and draped in standard sterile fashion and under local anesthesia with conscious sedation. Ultrasound was used to insonate the right common femoral artery and found to be patent and completely compressible. With direct vision then accessed with a micropuncture technique, and a 5 Nicaraguan intravascular sheath was placed within the right common femoral artery, establishing arterial access using modified Seldinger technique. The ultrasound guidance image was not captured and archived in the patient's record. 2000u of heparin IV was administered. A 5 Nicaraguan multipurpose catheter was then advanced over a guide wire to the level of the aortic arch. Right CCA technique: The right common carotid artery was selectively catheterized under fluoroscopic guidance and digital subtraction angiography images were obtained in biplane projections of the right cervical carotid artery. Interpretation: The right common carotid artery injection demonstrates normal antegrade flow into the external and internal carotid arteries with normal filling of the external carotid artery branches. Course and caliber of the cervical portion of the right internal carotid artery are unremarkable. Further inspection demonstrates no evidence of dissection, stenosis, aneurysm, or other vascular abnormality within the right CCA into the cervical segment of the right ICA. Right ICA technique: The right internal carotid artery was then selectively catheterized, and digital subtraction angiography of the intracranial right internal carotid circulation was performed in frontal, and lateral projections. Interpretation: There is normal antegrade filling of the distal internal carotid artery, ophthalmic artery, anterior cerebral artery, middle cerebral artery and the distal branches. Inspection of the remaining right internal carotid circulation revealed no other evidence of cerebral aneurysm, arteriovenous malformation, or arterial stenosis. Capillary and venous phase images were also unremarkable, with no evidence of veno-occlusive disease. Left CCA technique: The left common carotid artery was selectively catheterized under fluoroscopic guidance and digital subtraction angiography images were obtained in biplane projections of the left cervical common carotid artery. Interpretation: The left common carotid artery injection demonstrates normal antegrade flow into the external and internal carotid arteries with normal filling of the external carotid artery branches. Caliber and lumen contour of the cervical portion of the left internal carotid artery are unremarkable. Further inspection demonstrates no other evidence of dissection, stenosis, aneurysm, or other vascular abnormality within the left CCA into the cervical segment of the left ICA. Left ICA technique: The left internal marquez (more content not included)... [facility] 10-12-2023 History of Present illness Narrative Patient seen in person in Medication Management Service. Patient states compliant all of the time with regimen. No bleeding or thromboembolic side effects noted. Patient currently bridging with lovenox twice daily. No significant med or dietary changes. No significant recent illness or disease state changes. PT/INR done via POC meter per protocol. INR was therapeutic at 2. (goal 2 - 3). Lovenox can be discontinued today as INR is therapeutic today. Warfarin regimen will be continued at current dose 7.5 mg daily. Will retest in 6 days. Patient understands dosing directions and information discussed. Dosing schedule and follow up appointment given to patient. Progress note routed to referring physicians office. Patient acknowledges working in Consult Agreement with Pharmacist as referred by his/her physician/provider. COVID 19 screening completed. At this time patient denies symptoms, recent travel and exposure. Patient educated to screen for temperature and COVID-19 symptoms prior to coming to clinic for next appointment. They are instructed to call the clinic to reschedule if they have any symptoms. Standing order for PT/INR has been placed in preparation to transition to possible remote INR monitoring given efforts to reduce the spread of COVID-19. For Pharmacy Admin Tracking Only Intervention Detail: Total # of Interventions Recommended: 0 Total # of Interventions Accepted: 0 Time Spent (min): 20 Heydi Jiang, PharmD PGY1 Manometer Technician [facility] documented in this encounter [facility] 10-11-2023 History of Present illness Narrative Patient seen in person in Medication Management Service. Patient states compliant most of the time with regimen. No bleeding or thromboembolic side effects noted. No significant med or dietary changes. No significant recent illness or disease state changes. PT/INR done via POC meter per protocol. INR was subtherapeutic at 1.8. (goal 2 - 3) Warfarin regimen will be increased to 7.5 mg today Continue Lovenox bridging. Will retest in 1 day. Patient understands dosing directions and information discussed. Dosing schedule and follow up appointment given to patient. Progress note routed to referring physicians office. Patient acknowledges working in Consult Agreement with Pharmacist as referred by his/her physician/provider. COVID 19 screening completed. At this time patient denies symptoms, recent travel and exposure. Patient educated to screen for temperature and COVID-19 symptoms prior to coming to clinic for next appointment. They are instructed to call the clinic to reschedule if they have any symptoms. Standing order for PT/INR has been placed in preparation to transition to possible remote INR monitoring given efforts to reduce the spread of COVID-19. For Pharmacy Admin Tracking Only Intervention Detail: Dose Adjustment: 1, reason: Therapy Optimization Total # of Interventions Recommended: 1 Total # of Interventions Accepted: 1 Time Spent (min): 20 documented in this encounter [facility] 10-07-2023 History of Present illness Narrative Pt does not want Butalbital/APAP/Caffeine 50/325/40 tabs on file at [facility]. Pt in need of Requip miscommunication between pt/nurse/prescriber pt will specify which home pharmacy to have Requip sent to is ready for discharge 10/07/23 11:36am kbg Butalbital/APAP/Caffeine 50/325/40 tabs $18.37 10/07/23 11:15am out for delivery kbg pt has copay unable to enter room due to restrictions unable to reach pt via room phone or cell to discuss payment Pharmacy Note Warfarin Consult follow-up Recent Labs 10/05/23 1950 10/06/23 0219 10/07/23 0519 INR 1.1 1.1 1.1 Recent Labs 10/05/23 1950 10/06/23 0219 10/07/23 0519 HGB 10.5* 10.9* 9.6* HCT 35.7* 38.6 33.8* PLT 268 226 214 Significant Drug-Drug Interactions: New warfarin drug-drug interactions: none Discontinued drug-drug interactions: none Current warfarin drug-drug interactions: amiodarone, prozac, synthroid, requip, trazodone, fioricet Date INR Dose given previous day Dose scheduled for today 10/07/2023 1.1 7.5 7.5 Notes: Will continue 7.5 mg today. Daily PT/INR while inpatient. Marcelo Raman, Josep.Ph. 10/07/2023 8:44 AM lilly Johnston, called for an update. All questions answered. Spoke to Neurosurgery, Dr. Randhawa, for consult on carotid aneurysm. MD was informed on CTA results and patient status. MD states they don't do on site consults at this [facility]. If needed to be seen STAT they can set up for transfer. If it can wait he will see patient OP in office, just give patient his information. MD can call him tomorrow if they would like to discuss, otherwise have her make appt. CLINICAL PHARMACY NOTE: MEDS TO BEDS Total # of Prescriptions Filled: 1 The following medications were delivered to the patient: Enoxaparin 80mg/0.8ml injection(Generic Lovenox) Additional Documentation: delivered to pt room confirmed w/Nurse Yvette present will put with pt belongings (No Outpt Pharm room entry) 10/06/23 4:56pm kbg Pharmacy from [facility] came to floor to give patient a card for an appt on 10/08/23 at 10:30am. Card was given to patient. Spoke with Savannah from OP pharmacy they are working on getting Lovenox for discharge as they are low in stock. She will get back to creative writer. Headlight Assembler asked patient why she has been off her home meds. She states she did mail order and it took them 4 days to get. She is now finding a local pharmacy. Patient asked about her coumadin clinic she just moved here and does not have one she has been just taking her coumadin without checking INR's, last check was over a month ago. Patient is agreeable to be compliant with her niece taking her now that she is living with her. Patient states she does not drive but her niece will take her. Patient sates she has given herself shots before. Patient gave herself her Lovenox today with creative writer in room to help educate. Patient did well and is comfortable with self injecting. Pharmacy Note Warfarin Consult follow-up Recent Labs 10/05/23 1950 10/06/23 0219 INR 1.1 1.1 Recent Labs 10/05/23 1950 10/06/23 0219 HGB 10.5* 10.9* HCT 35.7* 38.6 PLT 268 226 Significant Drug-Drug Interactions: Current warfarin drug-drug interactions: amiodarone, prozac, synthroid, requip, trazodone, fioricet Date INR Dose given previous day Dose scheduled for today 10/06/2023 1.1 none 7.5 mg Notes: Per [facility] Medication Management office patient HAND DRAWER IN HELPER dosing was 7.5 mg ONE day per week. All other days are 5 mg. Patient noncompliant with office and has not been seen for 1 year. Office Number [phone] Per Gauri Rey Daily PT/INR while inpatient. Nadir Madrigal, PresleyD. [facility] 10/06/2023 9:53 AM Pharmacy Note Warfarin Consult Essence Vincent is a 53 y.o. female for whom pharmacy has been consulted to manage warfarin therapy. Consulting Physician: Dr. Glover Reason for Admission: hypokalemia Warfarin dose prior to admission: 5 mg with unclear dosing frequency Warfarin indication: HX of blood clot in heart Target INR range: 2-3 History reviewed. No pertinent past medical history. Recent Labs 10/06/23 0219 INR 1.1 Recent Labs 10/05/23 1950 10/06/23 0219 HGB 10.5* 10.9* HCT 35.7* 38.6 PLT 268 226 Current warfarin drug-drug interactions: amiodarone, prozac, synthroid, requip, trazodone Date INR Dose 10/06/2023 pending Daily PT/INR while inpatient. Thank you for the consult. Will continue to follow. Essence Vincent is a 53 y.o. Non- / non female who presents with Dizziness and is admitted to the hospital for the management of Hypokalemia. According to patient, she came to the ED today because she had a headache, lightheadedness, and felt so weak that she could barely hold herself. Reported extreme weakness in both of her upper and lower extremities. Patient reports that she recently moved to the area and states that she has been without all of her medication (including her twice daily potassium supplement and warfarin). Additionally, patient reports that she has been having very close exposure with someone with known head lice and is sure that she has it as well. Patient status observation in the Progressive Unit/Step down Hospital Problems Last Modified POA * (Principal) Hypokalemia 10/05/2023 Yes Hypokalemia -K+ 2.2 on arrival --Has been without her 40 mEq home dose for 4 days -40 mEq administered IV and p.o. in ED ---Recheck at 0200 -K+ replacement protocol ordered -Monitor BMP Chronic Anticoagulation Patient anticoagulated d/t history of blood clot in her heart -INR -1.1 -Check PT/INR daily -Pharmacy to dose Coumadin -Lovenox 1 mg/kg twice daily until INR therapeutic -monitor for signs of bleeding Dizziness -CT head - 1. Mild patchy periventricular and subcortical white matter changes. - Favored to represent chronic small vessel ischemic changes. 2. Otherwise, no acute findings. 3. Bifrontal distribution cortical atrophy is greater than expected for patient's age. -CTA head and neck - 1. No evidence of significant arterial stenosis or occlusion in head/neck. 2. 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 3. Emphysema in the imaged lung apices. - Trop HS 24, then 25 -EKG - AV dual Paced rhythm -CXR - cardiomegaly with mild pulmonary vascular congestion -UA negative for UTI -Tox screen positive for cannabinoid and barbiturates -BAL < 0.010 Left Cavernous ICA Aneurysm -Incidental finding on CTA head and neck -ED physician discussed case with Dr. Jose, Neurosurgery --No immediate intervention needed at this time -Patient will need to follow-up as outpatient Head lice -Treat head with Nix per package instructions -contact precautions for now Disposition 2 days Consultations: IP CONSULT TO VASCULAR SURGERY IP CONSULT TO NEUROSURGERY Patient is admitted as inpatient status because of co-morbidities listed above, severity of signs and symptoms as outlined, requirement for current medical therapies and most importantly because of direct risk to patient if care not provided in a hospital setting. Expected length of stay > 48 hours. PETE Shaw CNP 10/05/2023 11:20 PM documented in this encounter [facility] 09-29-2023 Note .ICD System pulse ge nerator replacement Procedures: LEASING ASSISTANT-D generator replacement (11779) Pocket revision with Tyrx pouch, 98817 - 59 (distinct procedure), Defibrillator generator threshold testing 93613, Pre and post ICD analysis and reprogramming 96598 x 2 Patient history: Please refer to the detailed history and physical on the patient's medical chart. Procedure narrative: The risks, benefits, and alternatives to the procedure and sedation were explained to the patient, and informed consent was obtained. The patient was in the fasting state. A grounding pad was placed. Self-adhesive anterior-posterior defibrillation pads were applied. A defibrillator was used for monitoring and the defibrillator waveform was set to biphasic. The patient was set up for continuous monitoring of surface 12 lead ECG and pulse oximetry. Blood pressure was monitored. The procedure was performed under IV conscious sedation supplemented with intermittent moderate sedation. The Left upper chest was prepped and draped in the usual sterile fashion. Local anesthesia: After preoperative IV antibiotic was completely infused, subcutaneous tissues just medial to the Left deltopectoral area, were infiltrated with Lidocaine 1% with Bupivacaine 0.25% for local anesthesia. The device was analyzed and reprogrammed. Fluoroscopy was performed. The LV lead placement was basal. Under fluoroscopic guidance, using a #15 scalpel, the pocket was meticulously opened over the existing device. Separate procedure, pocket revision. Additional 35 minutes. The ICD pocket was revised. The inferior pocket tissue was excised to relocate the leads in a plane inferior to the device and th. The existing leads were disconnected from the generator and visually inspected. The leads appeared intact, pacing and sensing thresholds were measured and were found to be satisfactory. The LV lead chronically had increased impedance and noncapture, which was unchanged. The LV lead was analyzed with multiple vectors. See strips. A cardioverter defibrillator pulse generator was detached from the leads and explanted. A Biventricular ICD was attached to the leads and implanted in a Tyrx pouch in the revised pocket. The device was interrogated and its parameters recorded; telemetered electrograms and pacing and sensing thresholds were measured and noted to be unchanged DFT was performed to assess safety margins for pacing, sensing and defibrillation. The device appropriately sensed and detected the episode of ventricular fibrillation. Device-based arrhythmia conversion testing was performed. The minimal effective energy was 25J. This energy terminated the induced fibrillation. The maximal programmable output was35J. The energy safety margin was noted to be satisfactory. The pocket was flushed with Vancomycin and saline solution. Wound hemostasis was obtained with electrocautery and Stella. The wound was closed in three layers using #3-0 and #4-0 Vicryl. The skin was approximated with subcuticular suture and skin adhesive. Steri-strips were applied, and the incision covered with a sterile dressing. Manual pressure was applied. The device was analyzed and reprogrammed. Summary: Successful replacement of a Medtronic left sided Biventricular ICD Recommendations: The patient should continue with the present medications. Discharge: The patient left the EP laboratory in stable condition and transferred to recovery area. Follow up: Tentatively patient will be discharged Today, following bed rest and subsequent ambulation, provided the recovery parameters are appropriate. The patient should be alert for bleeding, swelling, or signs of infection. The patient should call the process assistant immediately if symptoms recur, or for any problems. The patient and family (friend with HIPAA consent) have been instructed accordingly. Follow up in Clinic in 1 week for wound check. See complete procedural log and parameters. [email or web address] 09-29-2023 Hospital Discharge instructions Yessi Don, 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 - 09/29/2023 9:39 AM EST Images from the original note were not included. Home going instructions after a Pacemaker/ Defibrillator generator change After a procedure using sedation You should return home and rest for the remainder of the day and evening. It is recommended a responsible adult be with you for the first 24 hours after the procedure. Do not make any legal decisions for 24 hours after your procedure. Do not drink alcoholic beverages for 24 hours after your procedure. Wound care Leave the surgical dressing in place for 7 days post implant The dressing will be removed at the 1 week follow up appointment. The dressing is water resistant. You may shower and avoid water directly hitting the dressing. Inspect your incisional site/ dressing each day It is normal for the area around the incision to be tender for a few weeks following surgery. Apply ice to the site 3-4 times per day in 20 minute intervals for at least 2 days after surgery. Pain relievers such as Tylenol or Motrin are usually sufficient for pain relief. Activity Avoid driving for 24 hours If you have had passing out spells or previously restricted from driving, discuss driving restrictions with your doctor. Report to your physician Increased redness, swelling, drainage or gaping of your incisional site Increased pain at site unrelieved by pain medication Fever or chills prior to the 1 week appointment Bright red bleeding from the incisional site or complete saturation of the dressing Dizziness, lightheadedness, or passing out Remote monitoring/ Device ID card You have been instructed by the device company sales representative public utilities regarding remote home monitoring. There are multiple types of home monitoring units, please follow the instructions given If you have questions please contact the device clinic for further instruction After implant you will receive a temporary card. Permanent card will come in the mail in the next few weeks. It is important that you carry your ID card with you at all times. Follow up appointments Incision (wound) check in 1 week Appointment for device check and provider follow up in 6 months These appointments will be scheduled and appear on your after visit summary documented in this encounter [facility] Work Phone: 09-29-2023 Note Formatting of this n ote might be different from the original. Sedation Plan ASA 2 Mallampati class: II. Risks, benefits, and alternatives discussed with patient. [facility] Work Phone: 09-29-2023 Miscellaneous Notes Sedation Plan ASA 2 Mallampati class: II. Risks, benefits, and alternatives discussed with patient. documented in this encounter [facility] Work Phone: 09-29-2023 Attending History and physical note H&P reviewed. The patient was examined and there are no changes to the H&P. She is here for generator change. She has chronic lower extremity edema and exertional dyspnea. Shared decision making performed. [place] decision tool. All questions answered. Econsent obtained. Source Note - ERICA Simeon - 09/02/2023 2:30 PM EST CARDIOLOGY OFFICE VISIT CHIEF COMPLAINT Chief Complaint Patient presents with Device Check Chief complaint: My legs are really swollen and a very short of breath. HISTORY OF PRESENT ILLNESS HPI The patient is a 53-year-old female who is followed for atrial fibrillation status post atrial fibrillation ablation with no documented clinical recurrence, sustained ventricular tachycardia status post ablations through the [facility] with the most recent procedure being approximately 3 years ago per patient report. She has a history of ischemic cardiomyopathy left heart catheterization dated March 18, 2020 revealing chronic total occlusion of the circumflex with left to left bridging collaterals and with a left ventricular ejection fraction of 20 to 25% per transesophageal echo dated January 21, 2022 and valvular heart disease status post mitral valve repair. She underwent placement of a single-chamber ICD on November 30, 2002. The device was upgraded to a dual-chamber system on July 03, 2005. Most recently the device was upgraded to a LEASING ASSISTANT-D device on September 23, 2016 for the treatment of refractory heart failure. She presents to the office today as the device has reached elective replacement indicator. She states that she has been experiencing increasing shortness of breath with minimal activity as well as lower extremity edema. She reports that she is on furosemide 40 mg daily with poor response response to the medication. Patient is maintained on amiodarone, beta-blockade, and magnesium oxide for arrhythmia suppression. She also has a history of hypothyroidism on replacement therapy. She is accompanied by family member for today's office visit. Patient states that she does experience tachyarrhythmic palpitations. Patient's family member states that she can see the patient's heart beating through her shirt at times. Patient states that she has received ICD shock therapies and heart racing but states nothing recently. Past Medical History Past Medical History: Diagnosis Date Arrhythmia vtach, atrial flutter Atrial fibrillation (CMS/HCC) Coronary artery disease Hyperlipidemia Social History Social History Tobacco Use Smoking status: Former Types: Cigarettes Quit date: 08/2021 Years since quittin.0 Smokeless tobacco: Never Substance Use Topics Alcohol use: Yes Comment: rare Drug use: Never Family History Family History Problem Relation Name Age of Onset Stroke Mother Hypertension Mother Lung cancer Mother Lymphoma Mother Heart attack Mother Hypertension Father Cancer Father Allergies: Allergies Allergen Reactions Adhesive Tape-Silicones Other Erythromycin Nausea Only, Unknown and Nausea/vomiting Fentanyl Headache and Other Morphine GI intolerance and Nausea/vomiting Per patient, can tolerate as long as it is not a continuous drip Ondansetron Hcl Other Varenicline Other and Unknown Levofloxacin Other and Palpitations Outpatient Medications: Current Outpatient Medications Medication Instructions albuterol 90 mcg/actuation inhaler amiodarone (PACERONE) 200 mg, oral, Daily aspirin 81 mg EC tablet 1 tablet, oral, Daily atorvastatin (Lipitor) 80 mg tablet 1 tablet, oral, Nightly pkigwqjywf-zuzvoaddukecb-tsyc (Fioricet) 50-300-40 mg capsule 1 capsule, oral, Every 4 hours PRN FLUoxetine (PROZAC) 40 mg, oral, Daily furosemide (LASIX) 40 mg, oral, 2 times daily isosorbide mononitrate ER (IMDUR) 30 mg, oral, Daily, Emergency refill levothyroxine (SYNTHROID, LEVOXYL) 75 mcg, oral, Daily before breakfast LORazepam (ATIVAN) 0.5 mg, oral, 3 times daily PRN magnesium oxide (Mag-Ox) 400 mg tablet 1 tablet, oral, 2 times daily metoprolol succinate XL (Toprol-XL) 100 mg 24 hr tablet 1 tablet, oral, Nightly nitroglycerin (NITROSTAT) 0.4 mg, sublingual, Every 5 min PRN, UP TO 3 TIMES IF NO RELIEF CALL 911 omeprazole (PriLOSEC) [address] capsule 1 capsule, oral, Daily potassium chloride CR 20 mEq ER tablet 1 tablet, oral, Daily rOPINIRole (Requip) 2 mg tablet 1 tablet, oral, 3 times daily traZODone (Desyrel) 50 mg tablet 1 tablet, oral, Nightly PRN warfarin (Coumadin) 5 mg tablet TAKE 1 TO 1 & 1/2 TABLETS BY MOUTH ONCE DAILY DIRECTED. *EMERGENCY REFILL* REVIEW OF SYSTEMS Review of Systems All other systems reviewed and are negative. VITALS Vitals: 09/02/23 1434 BP: 118/64 Pulse: 80 PHYSICAL EXAM Vitals and nursing note reviewed. Constitutional: Appearance: Normal appearance. HENT: Head: Normocephalic. Neck: Vascular: No JVD. Cardiovascular: Rate and Rhythm: Normal rate and regular rhythm. Pulses: Normal pulses. Heart sounds: Normal heart sounds. 2-3+ bilateral lower extremity edema is noted. Pulmonary: Effort: Pulmonary effort is normal. Breath sounds: Diminished but clear to auscultation posterior laterally. Abdominal: General: Bowel sounds are normal. Palpations: Abdomen is soft. Musculoskeletal: General: Normal range of motion. Cervical back: Normal range of motion. Skin: General: Skin is warm and dry. Left subclavian ICD pocket is well-healed without redness swelling or drainage. Neurological: General: No focal deficit present. Mental Status: She is alert and oriented to person, place, and time. Motor: Motor function is intact. Psychiatric: Attention and Perception: Attention and perception normal. Mood and Affect: Mood and affect normal. Speech: Speech normal. Behavior: Behavior normal. Behavior is cooperative. Thought Content: Thought content normal. Cognition and Memory: Cognition and memory normal. Labs and testing: Twelve-lead EKG reveals atrial and ventricular pacing at 80 bpm. Prolonged AV conduction with a LA interval of 300 ms. QRS durations 136 ms, QT 482 ms, QTc 555 ms. ICD interrogation dated September 02, 2023 reveals atrial pacing 85.67% and ventricular pacing 96.06%. Estimated battery longevity is 1 month. The device reached elective replacement indicator on July 24, 2023. The Optivol fluid index has been elevated ongoing since February 18, 2023. No atrial or ventricular arrhythmic events were noted. Sensing and capture thresholds are within normal limits. JOVITA dated January 21, 2022 revealed an ejection fraction of 20 to 25%, moderate biatrial enlargement, status post mitral valve repair, severe TR, moderate PFO, plaque in the descending aorta. ASSESSMENT AND PLAN Clinical impressions: 1. Ischemic cardiomyopathy with a left ventricular ejection fraction of 20 to 25% per transesophageal echo dated January 21, 2022, [place] Heart Association class III, stage C heart failure at today's office visit. 2. Coronary artery disease with left heart catheterization dated March 18, 2020 revealing a chronic total occlusion of the circumflex coronary artery with left to left bridging collaterals. 3. Ventricular tachycardia status post upgrade to an AV biventricular ICD on September 23, 2016 for primary prevention of sudden cardiac , now secondary prevention with history of multiple ICD shock therapies for sustained ventricular tachycardia status post 3 VT ablation procedures at the [facility] and maintained on a combination of amiodarone, metoprolol, and magnesium oxide for ventricular arrhythmia suppression. (Medtronic Viva XT LEASING ASSISTANT-D). 4. Dyslipidemia on statin. 5. Paroxysmal atrial flutter status post atrial flutter ablation with no clinical recurrence. Anticoagulated with warfarin for prophylaxis from thromboembolic event. 6. Hypothyroidism on replacement therapy. 7. Anxiety disorder. 8. Chronic obstructive pulmonary disease with ongoing tobacco use. 9. Valvular heart disease status post mitral valve repair and severe TR per transesophageal echo dated January 21, 2022. 10. Moderate PFO per transesophageal echo dated January 21, 2022. 11. Class I obesity with a BMI of 30.66. Recommendations: 1. I discussed with the patient addressing the congestive heart failure prior to undergoing ICD generator change out. Patient is in agreement with the plan. Patient will discontinue the furosemide as she states she is not experiencing a good diuretic effect. She will be placed on Demadex 20 mg. She will take 2 tablets daily for 3 days then decrease to 1 tablet daily. Patient is on potassium chloride 20 mEq daily. She will increase the potassium chloride to 20 mill equivalents twice a day x 3 days then resume potassium chloride 20 mill equivalents daily. She will obtain a basic metabolic panel and BNP in 1 week for reevaluation of heart failure status. 2. The patient will be scheduled for outpatient AV biventricular ICD generator change with Dr. Nunez in 2 weeks once the patient is euvolemic. The patient will hold warfarin for 3 days prior to the procedure. She will hold the Demadex the day of the procedure. She will take all other medications as prescribed the day of the procedure with a small sip of water. No food to eat or drink after midnight the day of the procedure. 3. Follow-ups will be pending the clinical course. 4. The procedure for generator change out was reviewed extensively with the patient. She was reassured that Dr. Nunez will test the wires and evaluate for chest wall stimulation. Reviewed the indication, procedure, and imponderables for device implant. Restrictions post implant include arm lifting up to shoulder height for one month then full range of motion. Weight lifting restricted to 10 pounds on the affected side for one month then 35 pounds (push, pull, lift, or carry) lifelong. MRI may be obtained one month post implant on all MRI compatible devices. Notify [facility] for signs of infection including fever, chills, or purulent drainage. 5. Discussed routine device follow up is scheduled every 3-4 months. Inclinic checks alternate with remote (home) checks. Inclinic checks will be scheduled prior to the office visit with Electrophysiology. 6. Instructed patient to always carry the device card in their wallet. No wanding of the device at the airport or courthouse. Do not carry cell phone in the shirt pocket on the side of the implant. Utilize the ear on the opposite side of the device. Refrain from environments with electromagnetic interference (GIOVANY). 7. I discussed with the patient monitoring for high risk medication. She states that she does follow with a stock holder for her COPD but has not had pulmonary function testing in a while. She states her thyroid has been tested because she is on replacement therapy. Monitoring for amiodarone will be addressed at follow-up office visit. Evaluation and note by Jameel Valenzuela CNP Please excuse any errors in grammar or translation related to this dictation. Voice recognition software was utilized to prepare this document. [facility] Work Phone: 09-29-2023 History and physical note H&P reviewed. The patient was examined and there are no changes to the H&P. She is here for generator change. She has chronic lower extremity edema and exertional dyspnea. Shared decision making performed. [place] decision tool. All questions answered. Econsent obtained. Source Note - ERICA Simeon - 09/02/2023 2:30 PM EST CARDIOLOGY OFFICE VISIT CHIEF COMPLAINT Chief Complaint Patient presents with Device Check Chief complaint: My legs are really swollen and a very short of breath. HISTORY OF PRESENT ILLNESS HPI The patient is a 53-year-old female who is followed for atrial fibrillation status post atrial fibrillation ablation with no documented clinical recurrence, sustained ventricular tachycardia status post ablations through the [facility] with the most recent procedure being approximately 3 years ago per patient report. She has a history of ischemic cardiomyopathy left heart catheterization dated March 18, 2020 revealing chronic total occlusion of the circumflex with left to left bridging collaterals and with a left ventricular ejection fraction of 20 to 25% per transesophageal echo dated January 21, 2022 and valvular heart disease status post mitral valve repair. She underwent placement of a single-chamber ICD on November 30, 2002. The device was upgraded to a dual-chamber system on July 03, 2005. Most recently the device was upgraded to a LEASING ASSISTANT-D device on September 23, 2016 for the treatment of refractory heart failure. She presents to the office today as the device has reached elective replacement indicator. She states that she has been experiencing increasing shortness of breath with minimal activity as well as lower extremity edema. She reports that she is on furosemide 40 mg daily with poor response response to the medication. Patient is maintained on amiodarone, beta-blockade, and magnesium oxide for arrhythmia suppression. She also has a history of hypothyroidism on replacement therapy. She is accompanied by family member for today's office visit. Patient states that she does experience tachyarrhythmic palpitations. Patient's family member states that she can see the patient's heart beating through her shirt at times. Patient states that she has received ICD shock therapies and heart racing but states nothing recently. Past Medical History Past Medical History: Diagnosis Date Arrhythmia vtach, atrial flutter Atrial fibrillation (CMS/HCC) Coronary artery disease Hyperlipidemia Social History Social History Tobacco Use Smoking status: Former Types: Cigarettes Quit date: 08/2021 Years since quittin.0 Smokeless tobacco: Never Substance Use Topics Alcohol use: Yes Comment: rare Drug use: Never Family History Family History Problem Relation Name Age of Onset Stroke Mother Hypertension Mother Lung cancer Mother Lymphoma Mother Heart attack Mother Hypertension Father Cancer Father Allergies: Allergies Allergen Reactions Adhesive Tape-Silicones Other Erythromycin Nausea Only, Unknown and Nausea/vomiting Fentanyl Headache and Other Morphine GI intolerance and Nausea/vomiting Per patient, can tolerate as long as it is not a continuous drip Ondansetron Hcl Other Varenicline Other and Unknown Levofloxacin Other and Palpitations Outpatient Medications: Current Outpatient Medications Medication Instructions albuterol 90 mcg/actuation inhaler amiodarone (PACERONE) 200 mg, oral, Daily aspirin 81 mg EC tablet 1 tablet, oral, Daily atorvastatin (Lipitor) 80 mg tablet 1 tablet, oral, Nightly hdqymkdbnx-hmnssmuwhvndi-hnlk (Fioricet) 50-300-40 mg capsule 1 capsule, oral, Every 4 hours PRN FLUoxetine (PROZAC) 40 mg, oral, Daily furosemide (LASIX) 40 mg, oral, 2 times daily isosorbide mononitrate ER (IMDUR) 30 mg, oral, Daily, Emergency refill levothyroxine (SYNTHROID, LEVOXYL) 75 mcg, oral, Daily before breakfast LORazepam (ATIVAN) 0.5 mg, oral, 3 times daily PRN magnesium oxide (Mag-Ox) 400 mg tablet 1 tablet, oral, 2 times daily metoprolol succinate XL (Toprol-XL) 100 mg 24 hr tablet 1 tablet, oral, Nightly nitroglycerin (NITROSTAT) 0.4 mg, sublingual, Every 5 min PRN, UP TO 3 TIMES IF NO RELIEF CALL 911 omeprazole (PriLOSEC) [address] capsule 1 capsule, oral, Daily potassium chloride CR 20 mEq ER tablet 1 tablet, oral, Daily rOPINIRole (Requip) 2 mg tablet 1 tablet, oral, 3 times daily traZODone (Desyrel) 50 mg tablet 1 tablet, oral, Nightly PRN warfarin (Coumadin) 5 mg tablet TAKE 1 TO 1 & 1/2 TABLETS BY MOUTH ONCE DAILY DIRECTED. *EMERGENCY REFILL* REVIEW OF SYSTEMS Review of Systems All other systems reviewed and are negative. VITALS Vitals: 09/02/23 1434 BP: 118/64 Pulse: 80 PHYSICAL EXAM Vitals and nursing note reviewed. Constitutional: Appearance: Normal appearance. HENT: Head: Normocephalic. Neck: Vascular: No JVD. Cardiovascular: Rate and Rhythm: Normal rate and regular rhythm. Pulses: Normal pulses. Heart sounds: Normal heart sounds. 2-3+ bilateral lower extremity edema is noted. Pulmonary: Effort: Pulmonary effort is normal. Breath sounds: Diminished but clear to auscultation posterior laterally. Abdominal: General: Bowel sounds are normal. Palpations: Abdomen is soft. Musculoskeletal: General: Normal range of motion. Cervical back: Normal range of motion. Skin: General: Skin is warm and dry. Left subclavian ICD pocket is well-healed without redness swelling or drainage. Neurological: General: No focal deficit present. Mental Status: She is alert and oriented to person, place, and time. Motor: Motor function is intact. Psychiatric: Attention and Perception: Attention and perception normal. Mood and Affect: Mood and affect normal. Speech: Speech normal. Behavior: Behavior normal. Behavior is cooperative. Thought Content: Thought content normal. Cognition and Memory: Cognition and memory normal. Labs and testing: Twelve-lead EKG reveals atrial and ventricular pacing at 80 bpm. Prolonged AV conduction with a LA interval of 300 ms. QRS durations 136 ms, QT 482 ms, QTc 555 ms. ICD interrogation dated September 02, 2023 reveals atrial pacing 85.67% and ventricular pacing 96.06%. Estimated battery longevity is 1 month. The device reached elective replacement indicator on July 24, 2023. The Optivol fluid index has been elevated ongoing since February 18, 2023. No atrial or ventricular arrhythmic events were noted. Sensing and capture thresholds are within normal limits. JOVITA dated January 21, 2022 revealed an ejection fraction of 20 to 25%, moderate biatrial enlargement, status post mitral valve repair, severe TR, moderate PFO, plaque in the descending aorta. ASSESSMENT AND PLAN Clinical impressions: 1. Ischemic cardiomyopathy with a left ventricular ejection fraction of 20 to 25% per transesophageal echo dated January 21, 2022, [place] Heart Association class III, stage C heart failure at today's office visit. 2. Coronary artery disease with left heart catheterization dated March 18, 2020 revealing a chronic total occlusion of the circumflex coronary artery with left to left bridging collaterals. 3. Ventricular tachycardia status post upgrade to an AV biventricular ICD on September 23, 2016 for primary prevention of sudden cardiac , now secondary prevention with history of multiple ICD shock therapies for sustained ventricular tachycardia status post 3 VT ablation procedures at the [facility] and maintained on a combination of amiodarone, metoprolol, and magnesium oxide for ventricular arrhythmia suppression. (Medtronic Viva XT LEASING ASSISTANT-D). 4. Dyslipidemia on statin. 5. Paroxysmal atrial flutter status post atrial flutter ablation with no clinical recurrence. Anticoagulated with warfarin for prophylaxis from thromboembolic event. 6. Hypothyroidism on replacement therapy. 7. Anxiety disorder. 8. Chronic obstructive pulmonary disease with ongoing tobacco use. 9. Valvular heart disease status post mitral valve repair and severe TR per transesophageal echo dated January 21, 2022. 10. Moderate PFO per transesophageal echo dated January 21, 2022. 11. Class I obesity with a BMI of 30.66. Recommendations: 1. I discussed with the patient addressing the congestive heart failure prior to undergoing ICD generator change out. Patient is in agreement with the plan. Patient will discontinue the furosemide as she states she is not experiencing a good diuretic effect. She will be placed on Demadex 20 mg. She will take 2 tablets daily for 3 days then decrease to 1 tablet daily. Patient is on potassium chloride 20 mEq daily. She will increase the potassium chloride to 20 mill equivalents twice a day x 3 days then resume potassium chloride 20 mill equivalents daily. She will obtain a basic metabolic panel and BNP in 1 week for reevaluation of heart failure status. 2. The patient will be scheduled for outpatient AV biventricular ICD generator change with Dr. Nunez in 2 weeks once the patient is euvolemic. The patient will hold warfarin for 3 days prior to the procedure. She will hold the Demadex the day of the procedure. She will take all other medications as prescribed the day of the procedure with a small sip of water. No food to eat or drink after midnight the day of the procedure. 3. Follow-ups will be pending the clinical course. 4. The procedure for generator change out was reviewed extensively with the patient. She was reassured that Dr. Nunez will test the wires and evaluate for chest wall stimulation. Reviewed the indication, procedure, and imponderables for device implant. Restrictions post implant include arm lifting up to shoulder height for one month then full range of motion. Weight lifting restricted to 10 pounds on the affected side for one month then 35 pounds (push, pull, lift, or carry) lifelong. MRI may be obtained one month post implant on all MRI compatible devices. Notify [facility] for signs of infection including fever, chills, or purulent drainage. 5. Discussed routine device follow up is scheduled every 3-4 months. Inclinic checks alternate with remote (home) checks. Inclinic checks will be scheduled prior to the office visit with Electrophysiology. 6. Instructed patient to always carry the device card in their wallet. No wanding of the device at the airport or courthouse. Do not carry cell phone in the shirt pocket on the side of the implant. Utilize the ear on the opposite side of the device. Refrain from environments with electromagnetic interference (GIOVANY). 7. I discussed with the patient monitoring for high risk medication. She states that she does follow with a stock holder for her COPD but has not had pulmonary function testing in a while. She states her thyroid has been tested because she is on replacement therapy. Monitoring for amiodarone will be addressed at follow-up office visit. Evaluation and note by Jameel Valenzuela CNP Please excuse any errors in grammar or translation related to this dictation. Voice recognition software was utilized to prepare this document. documented in this encounter [facility] Work Phone: 09-27-2023 Evaluation note Encounter Date Diagnosis Assessment Notes Aug, Generalized anxiety disorder (ICD-10 - F41.1) [facility] 01-24-2024 Evaluation note* Encounter Date Diagnosis Assessment Notes Treatment Notes Treatment Clinical Notes Aug, Migraine without status migrainosus, not intractable, unspecified migraine type (ICD-10 - G43.909) last filled 07/27/2023 [facility] Other 01-24-2024 Evaluation note* Encounter Date Diagnosis Assessment Notes Treatment Notes Treatment Clinical Notes Aug, Migraine without status migrainosus, not intractable, unspecified migraine type (ICD-10 - G43.909) [facility] Other 01-02-2024 Evaluation note* Encounter Date Diagnosis Assessment Notes Treatment Notes Treatment Clinical Notes Aug, Generalized anxiety disorder (ICD-10 - F41.1) [facility] Other 11-29-2023 Miscellaneous Notes* Telephone Encounter - [...] phone number or address. Called number for Tanner (listed as spouse) that was found in recent OP visit in [facility], left voicemail. [facility] NotePROCEDURE: XR HUMERUS RT MIN 2 [...] Electronically authenticated by: JC BRAVO Date: 2023-01-27 11:03[facility]05-31-2023 NotePROCEDURE: XR HUMERUS RT MIN 2 V, [...] right shoulder or elbow. Electronically authenticated by: CJ BRAVO Date: 2023-01-27 11:03[facility]05-25-2022 NotePre-procedure Verification and Time Out: Pre-Procedure Verification [...] Findings: grossly normal anatomy Procedure performed by: Babbitt Spinner(s): none Estimated Blood Loss (mL): none Specimen: [...] of infection. The patient should call the process assistant immediately if symptoms recur, or for any [...] right interatrial septum sites were mapped with [id number] electroanatomical activation mapping and entrainment mapping from both the right atrial catheter and the ablation catheter. An Calabrio mapping system was used to create a 3D image of the right atrium and cavotricuspid isthmus. Mapping was performed during sinus rhythm and atrial pacing. 4. Catheter RF ablation. Applications were delivered via a generator to (more content not included)...[facility]05-25-2022 NoteHistory of Present Illness: /Lactating: Are You [...] - Surgical Update < 30 days 21-Jan-2022 12:47[facility]05-25-2022 NoteElectrophysiology Procedure TestingPlease click on the link to view the study images (Normal)[facility] [address] [place] Work Phone: 1(141) 344-932305-25-2022 NoteElectrophysiology Procedure Testing Please click on the link to view the study images (Normal)[facility] [place] [address] DO Work Phone: [phone] NoteHistory & Physical Reviewed: /Lactating: Are You [...] From Patient Profile - Preop v3 21-Jan-2022 10:28[facility]05-25-2022 NoteHistory of Present Illness: Admission Reason: Atrial [...] JOVITA/EPS/possible ablation. She is here today at [facility] for these procedures. Patient denies recent complaints [...] Flutter Plan for Impressi (more content not included)...[facility] 12-23-2021 Evaluation note* Encounter Date Diagnosis Assessment [...] procedure. A new referral is faxed to Dr. Hoskins [facility]. Seen by Memo Fuchs PharmD [place] [employer] Other 04-20-2022 Evaluation note* Encounter Date Diagnosis Assessment Notes Treatment Notes Treatment Clinical Notes Nov, Medication monitoring encounter (ICD-10 - Z51.81) Referring Provider: Robe Alonso (new re will be Dr. Rojas [phone]) Diagnosis: Thrombus, Atrial Fibrillation INR Goal: 2-3 [...] faxed to Dr. HARRIET Hoskins [facility]. Called [facility] [phone], spoke with Amanda SUMNER RN. A [facility] Physician is scheduled to see on 12/22 and take her as a patient. [facility] fax number is [phone]. [facility] [employer] [facility] Order: draw PT/INR on Completed by: Susan Euceda RN [place] Other 04-13-2022 Evaluation note* Encounter Date Diagnosis Assessment Notes Treatment Notes Treatment Clinical Notes Nov, Medication monitoring encounter (ICD-10 - Z51.81) Referring Provider: Robe Alonso (new re will be Dr. Rojas [phone]) Diagnosis: Thrombus, Atrial Fibrillation INR Goal: 2-3 INR: 1.2 ( 12/09 ) Tablet Size: 5mg Wednesday: 5mg Wednesday: 7.5mg Wednesday: 5mg Wednesday: 7.5mg : 5mg Wednesday: 7.5mg Wednesday: 5mg Total Weekly Dose: 42.5mg [facility] was called, LVM at 8:38 asking for [...] weekly at this time and to notify [facility] if she cannot make appointment. Patient will have INR drawn in clinic. It is recommended for patient to come in for appointments. Med list is updated. A Bridge Recommendation is faxed to PCP. Called [facility] [phone], lvm to return call. [facility] fax number is [phone]. [facility] Order: draw PT/INR on Completed by: Susan Euceda RN [place] Other 03-23-2022 Evaluation note* Encounter Date Diagnosis [...] the above instructions. Patient repeated correctly. Called [facility] [phone], [facility] with instructions. [facility] fax number is [phone]. This Order is faxed. [facility] Order: draw PT/INR on Thursday, November 25, 2021 Completed by: Susan Euceda RN [place] Other 03-15-2022 Evaluation note* Encounter Date Diagnosis [...] is drinking Boost supplement once daily. Called [facility] [phone], lvm for nurse with Vera Patel. LVM on Amanda's phone. Amanda returned call, discussed the above instructions. [facility] fax number is [phone]. This Order is faxed. [facility] Order: draw PT/INR on Thursday, November 18, 2021 Completed by: Susan Euceda RN [place] Other 03-09-2022 Evaluation note* Encounter Date Diagnosis Assessment Notes Treatment Notes Treatment Clinical Notes Oct, Medication monitoring encounter (ICD-10 - Z51.81) Referring Provider: Robe Alonso Diagnosis: Thrombus, Atrial Fibrillation INR Goal: 2-3 INR: 1.11 ([facility] 11/05/21) Tablet Size: 5mg Wednesday: 5mg [...] AC plan. Patient states she will call [facility] after talking to family members for rides. Called [facility], LVM for a return call. Addendum: Nurse Adriana SUMNER from [facility] returned call and stated understanding to instructions. Phone for [phone] ext [phone], nurse with Vera. [facility] fax number is [phone] [facility] Order: draw INR on Thursday, November 11, 2021 Completed by: Susan Euceda RN [place] Other 03-02-2022 Evaluation note* Encounter Date Diagnosis Assessment Notes Treatment Notes Treatment Clinical Notes Oct, Medication monitoring encounter (ICD-10 - Z51.81) Referring Provider: Robe Alonso Diagnosis: Thrombus, Atrial Fibrillation INR Goal: 2-3 INR: 1.22 ([facility] 10/28/21) Tablet Size: 5mg Wednesday: 5mg Wednesday: 5mg Wednesday: 5mg Wednesday: 5mg : 5mg Wednesday: 5mg Wednesday: 5mg Total Weekly Dose: 35mg Determing Dose. Continue warfarin as instructed above. This will be discussed with Dr. Packer tomorrow as patient admits to having diarrhea and blood in stool. Clinical decision not to boost until Dr. Packer is made aware of bleeding. [phone]), nurse with Vera. Vera fax number is [phone] per pt. Home Health Order: draw INR on Completed by: Jeane Dykes, [facility] [place] Other 02-24-2022 Evaluation note* Encounter Date Diagnosis Assessment Notes Treatment Notes Treatment Clinical Notes Sep, Medication monitoring encounter (ICD-10 - Z51.81) Referring Provider: Robe Alonso Diagnosis: Thrombus, Atrial Fibrillation INR Goal: 2-3 INR: 1.29 ([facility]) Tablet Size: 5mg Wednesday: 5mg Wednesday: 5mg Wednesday: 5mg Wednesday: 5mg : 5mg Wednesday: 5mg Wednesday: 5mg Total Weekly Dose: 35mg Boost additional 2.5mg for 3 days, then resume above plan. Follow up with a draw on Wednesday. Patient was not bridged with Lovenox at discharge from [facility]. Patient has been back on warfarin for 1 week. Adriana's phone number ([phone]), nurse with Vera. Vera fax number is [phone] per pt. Home Health Order: draw INR on Wednesday10/28/2021 Completed by: Jeane Dykes, [facility] [place] Other 01-01-2022 History of Present illness Narrative* [...] details. * She has remote history of OR , cardiogenic shock, PCI circumflex and iABP, with persistent severe LV dysfunction. She later occluded her cicumflex. Years later, she had HF and severe MR and underwentmitral valve repair at [facility]. She had recurrent VT and atrial arrhythmias, and underwent several ablations and repeat percutaneous MVR at [facility]. After her MVR and ablation in July,, she had KALLI when then improved. She has had recurrent ICD shocks for atrial flutter. * Personal review of ECG and cardiac data reviewed * Outside records: * EP study and successful ablation of atrial flutter. Multiple atrial tachycardias, possible left atrial tachycardia also noted and not targeted for ablation. December 2021. * Discharge summary [facility] Oct 2021 * Cardiology consult Oct 2021 [...] Patient reports that she follows up with [facility] [facility] for further adjustment of medication. Patient will notify us with whom she follows. Co nsider referral to advanced heart failure section. * Sustained VT s/p ablations at [facility]. No documentation of ablations available in chart. * CAD, chronic. See above. Reviewed meds. Continue meds. Discussed refills. * Biventricular ICD for refractory heart failure. Medtronic [id number]. Reviewed device check. No recentdevice check noted. Order sent to [facility] for device checks. * Hypertension, chronic. Stable. Reviewed meds. Continue meds. Discussed refills. * Migraine headache * AHA recommendations for exercise, diet, and behavioral modification reviewed with pt. * The patient and I discussed the mechanism of arrhythmia, ablation to prevent atrial flutter, no recurrent inappropriate shocks, need for compliance for device checks, order sent to [facility] for device checks, follow-up with heart failure clinic at [facility], indications for and typesof medications, discussion if and what medication refills needed, treatment options, risks, benefits, and imponderables. [employer] [employer] lifestyle changes and behavioral modification discussed. All questions answered in detail. Counseling over 50% visit regarding above. Patient appreciative of care. * Grammar * Please excuse grammatical or dictation errors as software dictation application being used. [facility] [address] DO Work Phone: [phone]) [phone] Evaluation note* Encounter Date Diagnosis Assessment Notes [...] Follow up in 2 weeks. Seen by Mmeo Fuchs PharmD [place] Other 11-01-2021 Evaluation note* Encounter Date Diagnosis Assessment Notes Treatment Notes Treatment Clinical Notes Jun, Medication monitoring encounter (ICD-10 - Z51.81) Referring Provider: oRbe Alonso Diagnosis: Thrombus, Atrial Fibrillation INR Goal: 2-3 INR: 4.4 Tablet Size: 5mg Wednesday: 5mg Wednesday: 5mg Wednesday: 5mg Wednesday: 5mg : 5mg Wednesday: 5mg Wednesday: 5mg Total Weekly Dose: 35mg Hold warfarin today, Saturday 06/30 and then begin new plan, a 7% decrease. Discussed compliance with appointments. See raymond. Follow up in 2 weeks. Seen by Susan Euceda RN [place] Other 10-11-2021 Evaluation note* Encounter Date Diagnosis [...] clinic in 2 weeks. Seen by Jose Molina, [facility] [place] [employer] Other 10-17-2020 History of Past illness Narrative* [...] 260ms and 260ms) terminating VT. Transfer to [facility] on 06/20 Plan: Continue amiodarone 400 [...] 07/13/2012 1 09/15/2011 Overview: IV Fentanyl PRN, FREELANCE PATTERNMAKER, Lidoderm patches, Po pain meds Pulmonary insuff [...] papillary muscles and chordal apparatus Dual chamber LEASING ASSISTANT-D 07/23/2020 Overview: On 07.14.12 -fired x6 for SVT/AF HRs 140-150 (pacer set at 130- any HR over that it recognizes as VT). EP consulted- will follow their recommendations (will continue po amio taper to control rate). Needs pacer check- Wednesday07.18.2012- will d/w EP about pacer check. H/o GERD 07/23/2020 Overview: 07.18.2012: Asymptomatic. On Protonix. documented as of this encounter (statuses as of 01/14/2022) [facility]10-17-2020 History of Past illness Narrative* Problem [...] spironolactone. 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, quela 06/09/2020 06/23/2020 Overview: Secondary to a [...] 260ms and 260ms) terminating VT. Transfer to [facility] on 06/20 Plan: Continue amiodarone 400 [...] 07/13/2012 1 09/15/2011 Overview: IV Fentanyl PRN, FREELANCE PATTERNMAKER, Lidoderm patches, Po pain meds Pulmonary insuff [...] papillary muscles and chordal apparatus Dual chamber LEASING ASSISTANT-D 07/23/2020 Overview: On 07.14.12 -fired x6 for SVT/AF HRs 140-150 (pacer set at 130- any HR over that it recognizes as VT). EP consulted- will follow their recommendations (will continue po amio taper to control rate). Needs pacer check- Wednesday07.18.2012- will d/w EP about pacer check. H/o GERD 07/23/2020 Overview: 07.18.2012: Asymptomatic. On Protonix. documented as of this encounter (statuses as of 04/12/2022) [facility] History of Past illness Narrative* Problem [...] 260ms and 260ms) terminating VT. Transfer to [facility] on 06/20 Plan: Continue amiodarone 400 [...] 07/13/2012 1 09/15/2011 Overview: IV Fentanyl PRN, FREELANCE PATTERNMAKER, Lidoderm patches, Po pain meds Pulmonary insuff [...] papillary muscles and chordal apparatus Dual chamber LEASING ASSISTANT-D 07/23/2020 Overview: On 07.14.12 -fired x6 for SVT/AF HRs 140-150 (pacer set at 130- any HR over that it recognizes as VT). EP consulted- will follow their recommendations (will continue po amio taper to control rate). Needs pacer check- Wednesday07.18.2012- will d/w EP about pacer check. H/o GERD 07/23/2020 Overview: 07.18.2012: Asymptomatic. On Protonix. documented as of this encounter (statuses as of 06/01/2022) [facility] History of Past illness Narrative* Problem [...] 260ms and 260ms) terminating VT. Transfer to [facility] on 06/20 Plan: Continue amiodarone 400 [...] 07/13/2012 1 09/15/2011 Overview: IV Fentanyl PRN, FREELANCE PATTERNMAKER, Lidoderm patches, Po pain meds Pulmonary insuff [...] papillary muscles and chordal apparatus Dual chamber LEASING ASSISTANT-D 07/23/2020 Overview: On 07.14.12 -fired x6 for SVT/AF HRs 140-150 (pacer set at 130- any HR over that it recognizes as VT). EP consulted- will follow their recommendations (will continue po amio taper to control rate). Needs pacer check- Wednesday07.18.2012- will d/w EP about pacer check. H/o GERD 07/23/2020 Overview: 07.18.2012: Asymptomatic. On Protonix. documented as of this encounter (statuses as of 07/01/2022) [facility] History of Past illness Narrative* Problem [...] 260ms and 260ms) terminating VT. Transfer to [facility] on 06/20 Plan: Continue amiodarone 400 [...] 07/13/2012 1 09/15/2011 Overview: IV Fentanyl PRN, FREELANCE PATTERNMAKER, Lidoderm patches, Po pain meds Pulmonary insuff [...] papillary muscles and chordal apparatus Dual chamber LEASING ASSISTANT-D 07/23/2020 Overview: On 07.14.12 -fired x6 for SVT/AF HRs 140-150 (pacer set at 130- any HR over that it recognizes as VT). EP consulted- will follow their recommendations (will continue po amio taper to control rate). Needs pacer check- Wednesday07.18.2012- will d/w EP about pacer check. H/o GERD 07/23/2020 Overview: 07.18.2012: Asymptomatic. On Protonix. documented as of this encounter (statuses as of 07/27/2022) [facility] History of Past illness Narrative* Problem [...] 260ms and 260ms) terminating VT. Transfer to [facility] on 06/20 Plan: Continue amiodarone 400 [...] 07/13/2012 1 09/15/2011 Overview: IV Fentanyl PRN, FREELANCE PATTERNMAKER, Lidoderm patches, Po pain meds Pulmonary insuff [...] papillary muscles and chordal apparatus Dual chamber LEASING ASSISTANT-D 07/23/2020 Overview: On 07.14.12 -fired x6 for SVT/AF HRs 140-150 (pacer set at 130- any HR over that it recognizes as VT). EP consulted- will follow their recommendations (will continue po amio taper to control rate). Needs pacer check- Wednesday07.18.2012- will d/w EP about pacer check. H/o GERD 07/23/2020 Overview: 07.18.2012: Asymptomatic. On Protonix. documented as of this encounter (statuses as of 08/30/2022) [facility] History of Past illness Narrative* Problem [...] 260ms and 260ms) terminating VT. Transfer to [facility] on 06/20 Plan: Continue amiodarone 400 [...] 07/13/2012 1 09/15/2011 Overview: IV Fentanyl PRN, FREELANCE PATTERNMAKER, Lidoderm patches, Po pain meds Pulmonary insuff [...] papillary muscles and chordal apparatus Dual chamber LEASING ASSISTANT-D 07/23/2020 Overview: On 07.14.12 -fired x6 for SVT/AF HRs 140-150 (pacer set at 130- any HR over that it recognizes as VT). EP consulted- will follow their recommendations (will continue po amio taper to control rate). Needs pacer check- Wednesday07.18.2012- will d/w EP about pacer check. H/o GERD 07/23/2020 Overview: 07.18.2012: Asymptomatic. On Protonix. documented as of this encounter (statuses as of 09/11/2022) [facility] History of Past illness Narrative* Problem [...] 260ms and 260ms) terminating VT. Transfer to [facility] on 06/20 Plan: Continue amiodarone 400 [...] 07/13/2012 1 09/15/2011 Overview: IV Fentanyl PRN, FREELANCE PATTERNMAKER, Lidoderm patches, Po pain meds Pulmonary insuff [...] papillary muscles and chordal apparatus Dual chamber LEASING ASSISTANT-D 07/23/2020 Overview: On 07.14.12 -fired x6 for SVT/AF HRs 140-150 (pacer set at 130- any HR over that it recognizes as VT). EP consulted- will follow their recommendations (will continue po amio taper to control rate). Needs pacer check- Wednesday07.18.2012- will d/w EP about pacer check. H/o GERD 07/23/2020 Overview: 07.18.2012: Asymptomatic. On Protonix. documented as of this encounter (statuses as of 11/28/2022) [facility] History of Past illness Narrative* Problem [...] 260ms and 260ms) terminating VT. Transfer to [facility] on 06/20 Plan: Continue amiodarone 400 [...] 07/13/2012 1 09/15/2011 Overview: IV Fentanyl PRN, FREELANCE PATTERNMAKER, Lidoderm patches, Po pain meds Pulmonary insuff [...] No Cardiac Surgical prep: N/A SIGNATURE: Cindi Ramríez, MS, PA-C DATE of SERVICE: 07/08/2012 TIME [...] papillary muscles and chordal apparatus Dual chamber LEASING ASSISTANT-D 07/23/2020 Overview: On 07.14.12 -fired x6 for SVT/AF HRs 140-150 (pacer set at 130- any HR over that it recognizes as VT). EP consulted- will follow their recommendations (will continue po amio taper to control rate). Needs pacer check- Wednesday07.18.2012- will d/w EP about pacer check. H/o GERD 07/23/2020 Overview: 07.18.2012: Asymptomatic. On Protonix. documented as of this encounter (statuses as of 03/05/2023) [facility] History of Past illness Narrative* Problem [...] 260ms and 260ms) terminating VT. Transfer to [facility] on 06/20 Plan: Continue amiodarone 400 [...] pain 07/13/2012 07/16/2012 Overview: IV Fentanyl PRN, FREELANCE PATTERNMAKER, Lidoderm patches, Po pain meds Pulmonary insuff [...] papillary muscles and chordal apparatus Dual chamber LEASING ASSISTANT-D 0 Overview: On 07.14.12 -fired x6 for SVT/AF HRs 140-150 (pacer set at 130- any HR over that it recognizes as VT). EP consulted- will follow their recommendations (will continue po amio taper to control rate). Needs pacer check- Wednesday07.18.2012- will d/w EP about pacer check. H/o GERD 07/23/2020 Overview: 07.18.2012: Asymptomatic. On Protonix. documented as of this encounter (statuses as of 03/29/2023) [facility] History of Past illness Narrative* Problem [...] 260ms and 260ms) terminating VT. Transfer to [facility] on 06/20 Plan: Continue amiodarone 400 [...] pain 07/13/2012 07/16/2012 Overview: IV Fentanyl PRN, FREELANCE PATTERNMAKER, Lidoderm patches, Po pain meds Pulmonary insuff [...] Surgical prep: N/A SIGNATURE: Cindi Ramírez, MS, PA-C DATE of SERVICE: 07/08/2012 TIME [...] papillary muscles and chordal apparatus Dual chamber LEASING ASSISTANT-D 0 Overview: On 07.14.12 -fired x6 for SVT/AF HRs 140-150 (pacer set at 130- any HR over that it recognizes as VT). EP consulted- will follow their recommendations (will continue po amio taper to control rate). Needs pacer check- Wednesday07.18.2012- will d/w EP about pacer check. H/o GERD 07/23/2020 Overview: 07.18.2012: Asymptomatic. On Protonix. documented as of this encounter (statuses as of 04/10/2023) [facility] History of Past illness Narrative* Problem [...] 260ms and 260ms) terminating VT. Transfer to [facility] on 06/20 Plan: Continue amiodarone 400 [...] pain 07/13/2012 07/16/2012 Overview: IV Fentanyl PRN, FREELANCE PATTERNMAKER, Lidoderm patches, Po pain meds Pulmonary insuff [...] CBC, Coags, BMP, Mg, Phos Basename 07/12/12 0503 07/11/12 2220 WBC 8.50 6.78 HB 13.1 [...] papillary muscles and chordal apparatus Dual chamber LEASING ASSISTANT-D 0 Overview: On 07.14.12 -fired x6 for SVT/AF HRs 140-150 (pacer set at 130- any HR over that it recognizes as VT). EP consulted- will follow their recommendations (will continue po amio taper to control rate). Needs pacer check- Wednesday07.18.2012- will d/w EP about pacer check. H/o GERD 07/23/2020 Overview: 07.18.2012: Asymptomatic. On Protonix. documented as of this encounter (statuses as of 04/22/2023) [facility] History of Past illness Narrative* Problem [...] 260ms and 260ms) terminating VT. Transfer to [facility] on 06/20 Plan: Continue amiodarone 400 [...] pain 07/13/2012 07/16/2012 Overview: IV Fentanyl PRN, FREELANCE PATTERNMAKER, Lidoderm patches, Po pain meds Pulmonary insuff [...] Surgical prep: N/A SIGNATURE: Cindi Ramírez, MS, PA-C DATE of SERVICE: 07/08/2012 TIME [...] papillary muscles and chordal apparatus Dual chamber LEASING ASSISTANT-D 0 Overview: On 07.14.12 -fired x6 for SVT/AF HRs 140-150 (pacer set at 130- any HR over that it recognizes as VT). EP consulted- will follow their recommendations (will continue po amio taper to control rate). Needs pacer check- Wednesday07.18.2012- will d/w EP about pacer check. H/o GERD 07/23/2020 Overview: 07.18.2012: Asymptomatic. On Protonix. documented as of this encounter (statuses as of 05/07/2023) [facility] History of Past illness Narrative* Problem [...] 260ms and 260ms) terminating VT. Transfer to [facility] on 06/20 Plan: Continue amiodarone 400 [...] pain 07/13/2012 07/16/2012 Overview: IV Fentanyl PRN, FREELANCE PATTERNMAKER, Lidoderm patches, Po pain meds Pulmonary insuff [...] papillary muscles and chordal apparatus Dual chamber LEASING ASSISTANT-D 0 Overview: On 07.14.12 -fired x6 for SVT/AF HRs 140-150 (pacer set at 130- any HR over that it recognizes as VT). EP consulted- will follow their recommendations (will continue po amio taper to control rate). Needs pacer check- Wednesday07.18.2012- will d/w EP about pacer check. H/o GERD 07/23/2020 Overview: 07.18.2012: Asymptomatic. On Protonix. documented as of this encounter (statuses as of 07/28/2023) [facility] History of Past illness Narrative* Problem [...] 260ms and 260ms) terminating VT. Transfer to [facility] on 06/20 Plan: Continue amiodarone 400 [...] pain 07/13/2012 07/16/2012 Overview: IV Fentanyl PRN, FREELANCE PATTERNMAKER, Lidoderm patches, Po pain meds Pulmonary insuff [...] papillary muscles and chordal apparatus Dual chamber LEASING ASSISTANT-D 0 Overview: On 07.14.12 -fired x6 for SVT/AF HRs 140-150 (pacer set at 130- any HR over that it recognizes as VT). EP consulted- will follow their recommendations (will continue po amio taper to control rate). Needs pacer check- Wednesday07.18.2012- will d/w EP about pacer check. H/o GERD 07/23/2020 Overview: 07.18.2012: Asymptomatic. On Protonix. documented as of this encounter (statuses as of 07/28/2023) [facility] History of Past illness Narrative* Problem [...] 260ms and 260ms) terminating VT. Transfer to [facility] on 06/20 Plan: Continue amiodarone 400 [...] pain 07/13/2012 07/16/2012 Overview: IV Fentanyl PRN, FREELANCE PATTERNMAKER, Lidoderm patches, Po pain meds Pulmonary insuff [...] papillary muscles and chordal apparatus Dual chamber LEASING ASSISTANT-D 0 Overview: On 07.14.12 -fired x6 for SVT/AF HRs 140-150 (pacer set at 130- any HR over that it recognizes as VT). EP consulted- will follow their recommendations (will continue po amio taper to control rate). Needs pacer check- Wednesday07.18.2012- will d/w EP about pacer check. H/o GERD 07/23/2020 Overview: 07.18.2012: Asymptomatic. On Protonix. documented as of this encounter (statuses as of 08/10/2023) [facility] Onset Date Resolution Status Afib acute Anemia acute CAD (coronary artery disease) acute Iron deficiency anemia acute Ischemic cardiomyopathy with implantable cardioverter-defibrillator (ICD) acute Palpitations acute Supratherapeutic INR acute Ventricular tachycardia acut e [facility] note[facility] InformationNort [employer] Other Evaluation noteNoPenxy [employer] Other Evaluation note* Diagnosis Onset Date Resolution Status KALLI (acute kidney injury) ac nisqually Digoxin toxicity acute Elevated troponin I level ac nisqually Hypotension acute Thrombocytopenia acute [facility] assessment information available [facility] Work Phone: Evaluation note* Diagnosis Persistent atrial fibrillation (HCC)- Primary Atrial fibrillation [facility] Diagnosis ICD (implantable cardioverter-defibrillator) battery depletion documented in this encounter [facility] Work Phone: Evaluation note* Diagnosis ICD (implantable cardioverter-defibrillator) battery depletion Elective replacement of implantable cardioverter-defibrillator (ICD) battery required- Primary Biventricular implantable cardioverter-defibrillator (ICD) in situ Biventricular implantable cardioverter-defibrillator (ICD) in situ Elective replacement of implantable cardioverter-defibrillator (ICD) battery required documented in this encounter [facility] Work Phone: Evaluation note* Diagnosis Elective replacement of implantable cardioverter-defibrillator (ICD) battery required- Primary Biventricular implantable cardioverter-defibrillator (ICD) in situ Elective replacement of implantable cardioverter-defibrillator (ICD) battery required Atrial tachycardia Other specified cardiac dysrhythmias Paroxysmal atrial fibrillation (CMS/HCC) Atrial fibrillation CAD (coronary artery disease) Coronary atherosclerosis of unspecified type of vessel, muscogee or graft VT (ventricular tachycardia) (CMS/HCC) Paroxysmal ventricular tachycardia Biventricular implantable cardioverter-defibrillator (ICD) in situ Biventricular implantable cardioverter-defibrillator (ICD) in situ Elective replacement of implantable cardioverter-defibrillator (ICD) battery required documented in this encounter [facility] Work Phone: Evaluation note* Diagnosis Hypokalemia- Primary Hypopotassemia Hypokalemia Hypopotassemia Dizziness Dizziness and giddiness Longstanding persistent atrial fibrillation (HCC) [facility] Diagnosis Longstanding persistent atrial fibrillation (HCC)- Primary [facility]* Diagnosis Onset Date Resolution Status Cellulitis of face noneactiv e [facility] Work Phone: Hisrhql general Narrative - Reported* Type Description Date [...] see surgical hx Hospitalization History heart issues [facility] [employer] Other History [facility] - [facility] [employer] Other History general Narrative - Reported* Type [...] see surgical hx Hospitalization History heart issues [facility] Other History of Present illness Narrative* She is referred by Dr. Hoskins for evaluation for ablation of atrial flutter. * She has remote history of OR , cardiogenic shock, PCI circumflex and iABP, with persistent severe LV dysfunction. She later occluded her cicumflex. Years later, she had HF and severe MR and underwentmitral valve repair at [facility]. She had recurrent VT and atrial arrhythmias, and underwent several ablations and repeat percutaneous MVR at [facility]. After her MVR and ablation in [...] reviewed * Outside records: * Discharge summary [facility] Oct 2021 * Cardiology consult Oct 2021 * ECG Oct 2021 * H and P Oct 2021 * Echo Oct 2021. LVEF 15% * ECG: Today. Atrial flutter. LAD. QT 400 ms * See signed ECG and check /Paceart. * Imp / Plan * Paroxsymal atrial flutter. Mutliple ICD shocks. Shared decision making re: atrial flutter management. Preop cardiac evaluation performed. [place] decision tool. She opts for EP study ablation of atrial flutter. Procedures, risks, benefits, and imponderables reviewed. Consented. * Chronic systolic heart failure. Stable NYHA III C HF. Reviewed meds. Continue meds. Refills. * Sustained VT s/p ablations at [facility]. No documentation of ablations available in chart at time of visit * CAD, chronic. See above. Reviewed meds. Continue meds. Refills. * Biventricular ICD for refractor heart failure. Medtronic [id number]. Reviewed device check. [facility]. * Preop cardiac eval. See orders. * [...] needed, treatment options, risks, benefits, and imponderables. [place] [employer] lifestyle changes and behavioral modification discussed. All questions answered in detail. Counseling over 50% visit regarding above. Patient appreciative of care. * Grammar * Please excuse grammatical or dictation errors as software dictation application being used. [facility] [address] DO Work Phone: Hospital Discharge instructions* Attachments The following attachments cannot be sent through Care Everywhere. * Hypokalemia (Citizen Of [place]) [facility] Additional Instructions It does not appear that you are taking your warfarin, because your serum INR is 1, which is normal. Please be sure that you are taking your warfarin as prescribed. You should call the coumadin clinic tomorrow to have your INR rechecked, and for dosing instructions. I will prescribe Lovenox (low molecular weight heparin) shots twice daily for the next week until your INR is therapeutic. Let the Coumadin Clinic know that you are taking the Lovenox. They will tell you when to stop.[facility] Work Phone: [facility]/waiting for referralLittle [place] [employer] Other Summary Purpose Family History No Family History Records Found Relationship Condition Age at Onset Recorded Date/T [...] of lung cance r: Mother(V16.1, Z80.1) Status:Active Relationship Condition Age at Onset Recorded Date/T tosin Not Specified Small B-cell lymphoma Unknown Unknown father Malignant neoplasm Unknown Heart disease Unknown Advance Directives No Advanced Directives Records FoundDocuments on File Type Date Recorded Patient Rd Mechanical Engineer Expl 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 Advance Directive(s) 06/18/2020 4:28 PM [...] Documents on File Type Date Recorded Patient Rd Mechanical Engineer Expl 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 Advance Directive(s) 03/12/2021 1:21 PM Advance Directive(s) 12/27/2020 3:12 PM Advance Directive(s) 08/18/2020 1:26 PM Advance Directive(s) 08/17/2020 6:49 PM Advance Directive(s) 08/11/2020 1:34 PM [facility] Advance Directive(s) 07/23/2020 12:14 PM Advance [...] Advance Directives No August 04, 2023 2:59pm Latest Code Status on File Code Status Date Activated Date Inactivated Comments Full Code 09/29/2023 6:18 AM Question Answer Comments Plan of Care: Code Status Discussion Not Compl eted Decision Maker: Provider Rationale: Patient condition do es not warrant discussion Latest Code Status on File Code Status Date Activated Date Inactivated Comments Full Code 10/06/2023 12:08 AM Latest Code Status on File Code Status Date Activated Date Inactivated Comments Full Code 10/06/2023 12:08 AM 10/07/2023 2:58 PM Code Status History Code Status Date Activated Date Inactivated Comments Full Code 02/05/2013 2:51 AM 02/05/2013 8:56 PM Advance Directive Response Recorded Date/ Time Advance Directives No August 04, 2023 3:59pm Chief Complaint and Reason for Visit Chief [...] Complaint ^ Z51.81 weakness Reason for Visit KLALI (acute kidney in jury) Digoxin toxicity Elevated troponin I level Hypotension Thrombocytopenia Chief Complaint ^ Chief Complaint ^ Ventricular tachycardia Chief Complaint ^ bump under right eye Chief Complaint ^ bump under right eye chest pain Reason for Visit Cellulitis of face Assessments Diagnosis Onset Date Resolution Status CAD (coronary artery disease) acute Chest pain acute Elevated troponin I level ac nisqually Ischemic cardiomyopathy with implantable cardioverter-defibrillator (ICD) acute [...] acut e Chief Complaint Order sent to [facility] for testing due in patient referred by Dr. Hoskins for possible ablation. Seen at [facility] 11/04/2021atient is here today for a scheduled follow upAmiodarone Order sent to [facility] for testing due in May Reason for Referral Specialty Diagnoses / Procedures Referred By Purnima ferris Referred To Contact Pharmacist / Pharmacy Diagnoses Longstanding persistent atrial fibrillation (HCC) Swapnil Brand MD [address] [place] [address] [facility] [address] [place] [address] Referral ID Status Reason Start Date Expiration Date Visits Requested Visits Authorized [id number] Authorized Specialty Services Required 10/06/2023 10/05/2024 99 99 Scheduling Instructions [facility] Medication Management Question Answer New Start No Tx Agent Warfarin INR Goal 2.0-3.0 [3] Tx Duration Indefinite Comments Electronic signature for this referral acknowledges acceptance of entering into a collaborative practice agreement pursuant to Section 4729.39 of the [place] Revised Code. Specialty Diagnoses / Procedures Referred By Purnima ferris Referred To Contact Cardiology Diagnoses ICD (implantable cardioverter-defibrillator) battery depletion Procedures Cardiac Device Check - In Clinic Margareth Nunez MD [address] [facility] [address] [place] [address] Referral ID Status Reason Start Date Expiration Date Visits Requested Visits Authorized [id number] Pending Review Perform Procedure 3 07/26/2024 52 52 Additional Source Comments INFORMATION SOURCE (unrecogn ized section and content) DATE CREATED AUTHOR 10/19/2018 [facility] DATE CREATED AUTHOR AUTHOR'S ORGANIZ ATION 09/30/2021 [facility] DATE CREATED AUTHOR AUTHOR'S ORGANIZ ATION 02/07/2022 [facility] [place] [facility] DATE CREATED AUTHOR AUTHOR'S ORGANIZ ATION 04/26/2022 [facility] DATE CREATED AUTHOR AUTHOR'S ORGANIZ ATION 02/06/2023 [facility] DATE CREATED AUTHOR AUTHOR'S ORGANIZ ATION 08/29/2023 [facility] DATE CREATED AUTHOR AUTHOR'S ORGANIZ ATION 09/05/2023 [facility] DATE CREATED AUTHOR AUTHOR'S ORGANIZ ATION 09/30/2023 [facility] DATE CREATED AUTHOR AUTHOR'S ORGANIZ ATION 09/30/[address] [facility] DATE CREATED AUTHOR AUTHOR'S ORGANIZ ATION 10/05/2023 [facility] ical Center DATE CREATED AUTHOR AUTHOR'S ORGANIZ ATION 10/14/2023 [facility] DATE CREATED AUTHOR AUTHOR'S ORGANIZ ATION 01/07/2024 [facility] DATE CREATED AUTHOR AUTHOR'S ORGANIZ ATION 02/08/2024 [facility] y[facility] Source Comments (unrecognize d section and content) In the event this informatio n is protected by the Federal Confidentiality of Alcohol and Drug Abuse Patient Records regulations: The Federal rules restrict any use of the information to criminally investigate or prosecute any alcohol or drug abuse patient.[facility] the event this information is protected by the Federal Confidentiality of Alcohol and Drug Abuse Patient Records regulations: The Federal rules restrict any use of the information to criminally investigate or prosecute any alcohol or drug abuse patient.[facility] HospitalIn the event this information is protected by the Federal Confidentiality of Alcohol and Drug Abuse Patient Records regulations: The Federal rules restrict any use of the information to criminally investigate or prosecute any alcohol or drug abuse patient.[facility] HospitalIn the event this information is protected by the Federal Confidentiality of Alcohol and Drug Abuse Patient Records regulations: The Federal rules restrict any use of the information to criminally investigate or prosecute any alcohol or drug abuse patient.[facility] HospitalIn the event this information is protected by the Federal Confidentiality of Alcohol and Drug Abuse Patient Records regulations: The Federal rules restrict any use of the information to criminally investigate or prosecute any alcohol or drug abuse patient.[facility] HospitalIn the event this information is protected by the Federal Confidentiality of Alcohol and Drug Abuse Patient Records regulations: The Federal rules restrict any use of the information to criminally investigate or prosecute any alcohol or drug abuse patient.[facility] HospitalIn the event this information is protected by the Federal Confidentiality of Alcohol and Drug Abuse Patient Records regulations: The Federal rules restrict any use of the information to criminally investigate or prosecute any alcohol or drug abuse patient.[facility] HospitalIn the event this information is protected by the Federal Confidentiality of Alcohol and Drug Abuse Patient Records regulations: The Federal rules restrict any use of the information to criminally investigate or prosecute any alcohol or drug abuse patient.[facility] HospitalIn the event this information is protected by the Federal Confidentiality of Alcohol and Drug Abuse Patient Records regulations: The Federal rules restrict any use of the information to criminally investigate or prosecute any alcohol or drug abuse patient.[facility] HospitalIn the event this information is protected by the Federal Confidentiality of Alcohol and Drug Abuse Patient Records regulations: The Federal rules restrict any use of the information to criminally investigate or prosecute any alcohol or drug abuse patient.[facility] HospitalIn the event this information is protected by the Federal Confidentiality of Alcohol and Drug Abuse Patient Records regulations: The Federal rules restrict any use of the information to criminally investigate or prosecute any alcohol or drug abuse patient.[facility] HospitalIn the event this information is protected by the Federal Confidentiality of Alcohol and Drug Abuse Patient Records regulations: The Federal rules restrict any use of the information to criminally investigate or prosecute any alcohol or drug abuse patient.[facility] HospitalIn the event this information is protected by the Federal Confidentiality of Alcohol and Drug Abuse Patient Records regulations: The Federal rules restrict any use of the information to criminally investigate or prosecute any alcohol or drug abuse patient.[facility] HospitalIn the event this information is protected by the Federal Confidentiality of Alcohol and Drug Abuse Patient Records regulations: The Federal rules restrict any use of the information to criminally investigate or prosecute any alcohol or drug abuse patient.[facility] HospitalIn the event this information is protected by the Federal Confidentiality of Alcohol and Drug Abuse Patient Records regulations: The Federal rules restrict any use of the information to criminally investigate or prosecute any alcohol or drug abuse patient.[facility] HospitalIn the event this information is protected by the Federal Confidentiality of Alcohol and Drug Abuse Patient Records regulations: The Federal rules restrict any use of the information to criminally investigate or prosecute any alcohol or drug abuse patient.[facility] HospitalIn the event this information is protected by the Federal Confidentiality of Alcohol and Drug Abuse Patient Records regulations: The Federal rules restrict any use of the information to criminally investigate or prosecute any alcohol or drug abuse patient.[facility] HospitalIn the event this information is protected by the Federal Confidentiality of Alcohol and Drug Abuse Patient Records regulations: The Federal rules restrict any use of the information to criminally investigate or prosecute any alcohol or drug abuse patient.[facility] HospitalIn the event this information is protected by the Federal Confidentiality of Alcohol and Drug Abuse Patient Records regulations: The Federal rules restrict any use of the information to criminally investigate or prosecute any alcohol or drug abuse patient.[facility] HospitalIn the event this information is protected by the Federal Confidentiality of Alcohol and Drug Abuse Patient Records regulations: The Federal rules restrict any use of the information to criminally investigate or prosecute any alcohol or drug abuse patient.[facility] Care Teams (unrecognized sec tion and content) Team Status: Active Member Role Status Dates Karen Garner MD Primary Care Provider Active Team Status: Active Member Role Status Dates Darian Smiley DO Attending Provider Active Start: November 29, 2003 Team Status: Inactive Member Role Status Dates Amanda Grace APRN COMPLAINT OPERATOR-C Primary Care Provider Active Start: November 11, 2023 End: November 11, 2023 Verona Hoskins APRN Attending Provider Active Start: November 11, 2023 End: November 11, 2023 Team Status: Inactive Member Role Status Dates Tanner Mae Jr, MD Emergency Provider Active Start: January 24, 2024 End: January 24, 2024 Karen Garner MD Primary Care Provider Active Start: January 24, 2024 End: January 24, 2024 [employer] Relationship Specialty Start Date End Date Robe Alonso (Fax) PCP - General 04/16/10 Nadir Hoskins [address] [address] Physician Cardiology 10/13/18 Margareth Nunez [address] [place] [phone] Cardiology 10/14/18 Violeta Chan MD [address] [place] [address] Sand Digger Cardiology 07/04/20 Violeta Chan MD [address] [place] [address] Primary Staff Physician Cardiology 02/11/21 [employer] Relationship Specialty Start Date End Date Robe Alonso (Fax) PCP - General 04/16/10 Nadir Hoskins [address] [address] Physician Cardiology 10/13/18 Margareth Nunez [address] [place] [phone] Cardiology 10/14/18 Violeta Chan MD [address] [place] [address] Sand Digger Cardiology 07/04/20 Violeta Chan MD [address] [place] [address] Primary Staff Physician Cardiology 02/11/21 Team Status: Active Member Role Status Dates Darian Smiley DO Attending Provider Active Team Status: Active Member Role Status Dates PHYSICIAN NO FAMILY Primary Care Provider Active [employer] Relationship Specialty Start Date End Date Robe Alonso (Fax) PCP - General 04/16/10 Nadir Hoskins [address] [address] Physician Cardiology 10/13/18 Margareth Nunez MD Cardiology 10/14/18 Violeta Chan MD [address] [place] [address] Sand Digger Cardiology 07/04/20 Violeta Chan MD [address] [place] [address] Primary Staff Physician Cardiology 02/11/21 [employer] Relationship Specialty Start Date End Date Robe Alonso (Fax) PCP - General 04/16/10 Nadir Hoskins [address] [address] Physician Cardiology 10/13/18 Margareth Nunez MD [address] [address] Cardiology 10/14/18 Violeta Chan MD [address] [place] [address] Sand Digger Cardiology 07/04/20 Violeta Chan MD [address] [place] [address] Primary Staff Physician Cardiology 02/11/21 [employer] Relationship Specialty Start Date End Date Robe Alonso (Fax) PCP - General 04/16/10 Nadir Hoskins [address] [address] Physician Cardiology 10/13/18 Margareth Nunez MD [address] [address] Cardiology 10/14/18 Violeta Chan MD [address] [place] [address] Sand Digger Cardiology 07/04/20 Violeta Chan MD [address] [place] [address] Primary Staff Physician Cardiology 02/11/21 [employer] Relationship Specialty Start Date End Date Robe Alonso PCP - General 04/16/10 Nadir Hoskins [address] [place] [address] Physician Cardiology 10/13/18 Margareth Nunez MD [address] [place] [address] Cardiology 10/14/18 Violeta Chan MD [address] [place] [address] Sand Digger Cardiology 07/04/20 Violeta Chan MD [address] [place] [address] Primary Staff Physician Cardiology 02/11/21 [employer] Relationship Specialty Start Date End Date Anju Cuevas, DMD [address] [place] [address] Physician Oral & Maxillofacial Surgery 06/04/20 [employer] Relationship Specialty Start Date End Date Alonso, Robe A (Fax) PCP - General 04/16/10 Nadir Hoskins [address] [address] Physician Cardiology 10/13/18 Margareth Nunez MD [address] [address] Cardiology 10/14/18 Violeta Chan MD [address] [place] [address] Sand Digger Cardiology 07/04/20 Violeta Chan MD [address] [place] [address] Primary Staff Physician Cardiology 02/11/21 [employer] Relationship Specialty Start Date End Date Robe Alonso (Fax) PCP - General 04/16/10 Nadir Hoskins [address] [address] Physician Cardiology 10/13/18 Margareth Nunez MD [address] [address] Cardiology 10/14/18 Violeta Chan MD [address] [place] [address] Sand Digger Cardiology 07/04/20 Violeta Chan MD [address] [place] [address] Primary Staff Physician Cardiology 02/11/21 [employer] Relationship Specialty Start Date End Date Robe Alonso (Fax) PCP - General 04/16/10 Nadir Hoskins [address] [place] [address] Physician Cardiology 10/13/18 Margareth Nunez MD [address] [place] [address] Cardiology 10/14/18 Violeta Chan MD [address] [place] [address] Sand Digger Cardiology 07/04/20 Violeta Chan MD [address] [place] [address] Primary Staff Physician Cardiology 02/11/21 [employer] Relationship Specialty Start Date End Date Robe Alonso PCP - General 04/16/10 Nadir Hoskins DO [address] [place] [address] Physician Cardiology 10/13/18 Margareth Nunez MD [address] [place] [address] Cardiology 10/14/18 Violeta Chan MD [address] [place] [address] Sand Digger Cardiology 07/04/20 Violeta Chan MD [address] [place] [address] Primary Staff Physician Cardiology 02/11/21 [employer] Relationship Specialty Start Date End Date AlonsoRainaan Franco (Fax) PCP - General 04/16/10 Nadir Hoskins DO [address] [facility] [address] [place] [address] Physician Cardiology 10/13/18 Margareth Nunez MD [address] [facility] [address] [place] [address] Cardiology 10/14/18 Violeta Chan MD [address] [place] [address] Sand Digger Cardiology 07/04/20 Violeta Chan MD [address] [place] [address] Primary Staff Physician Cardiology 02/11/21 [employer] Relationship Specialty Start Date End Date Alonso Robe Franco (Fax) PCP - General 04/16/10 Nadir Hoskins DO [address] [place] [address] Physician Cardiology 10/13/18 Margareth Nunez MD [address] [facility] [address] [place] [address] Cardiology 10/14/18 Violeta Chan MD [address] [place] [address] Sand Digger Cardiology 07/04/20 Violeta Chan MD [address] [place] [address] Primary Staff Physician Cardiology 02/11/21 Team Status: Active Member Role Status Dates Amanda Grace APRN COMPLAINT OPERATOR-C Primary Care Provider Active Team Status: Inactive Member Role Status Dates Margareth Nunez MD Attending Provider Active Amanda Grace APRN COMPLAINT OPERATOR-C Primary Care Provider Active [employer] Relationship Specialty Start Date End Date Alonso Robe Franco PCP - General 04/16/10 Nadir Hoskins DO [address] [place] [address] Physician Cardiology 10/13/18 Margareth Nunez MD [address] [place] [address] Cardiology 10/14/18 Violeta Chan MD [address] [place] [address] Sand Digger Cardiology 07/04/20 Violeta Chan MD [address] [place] [address] Primary Staff Physician Cardiology 02/11/21 [employer] Relationship Specialty Start Date End Date Shaikh Rojas MD [facility] [address] [place] [address] PCP - General 04/24/22 Jameel Valenzuela, 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 [facility] [address] [facility] [address] [place] [address] Nurse Practitioner Cardiology 09/02/23 Margareth Nunez MD [address] [facility] [place], [place] [address] Consulting Physician Cardiology 09/02/23 [employer] Relationship Specialty Start Date End Date Shaikh Rojas MD [facility] [address] [place] [id number] PCP - General 04/24/22 Jameel Valenzuela, 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 [address] [facility], [facility] [address] [place] [address] Nurse Practitioner Cardiology 09/02/23 Margareth Nunez MD [address] [facility], [facility] [address] [place] [address] Consulting Physician Cardiology 09/02/23 [employer] Founder Relationship Specialty Start Date End Date Liam Hyman MD [address] [place] [id number] PCP - General Family Medicine 09/29/23 Jameel Valenzuela, 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 [address] [facility], [address] [place] [address] Nurse Practitioner Cardiology 09/02/23 Margareth Nunez MD [address] [facility] [place] [address] Consulting Physician Cardiology 09/02/23 [employer] Relationship Specialty Start Date End Date Liam Hyman MD [address] [place] [address] PCP - General Family Medicine 10/11/23 [employer] Founder Relationship Specialty Start Date End Date Liam Hyman MD [address] [place] [address] PCP - General Family Medicine 10/11/23 REASON FOR VISIT (unrecogniz ed section and content) Reason Onset Date Comments Opened In Error 07/27/2022 Reason Comments Research IRB [id number] TRIM-AF Specialty Diagnoses / Procedures Referred By Purnima t Referred To Contact Cardiology Diagnoses ICD (implantable cardioverter-defibrillator) battery depletion Procedures Cardiac Device Check - In Clinic Margareth Nunez MD [address] [address] Referral ID Status Reason Start Date Expiration Date Visits Requested Visits Authorized [id number] Pending Review Perform Procedure 3 07/26/2024 52 52 Specialty Diagnoses / Procedures Referred By Purnima t Referred To Contact Diagnoses Biventricular implantable cardioverter-defibrillator (ICD) in situ Elective replacement of implantable cardioverter-defibrillator (ICD) battery required Biventricular implantable cardioverter-defibrillator (ICD) in situ [Z95.810] Elective replacement of implantable cardioverter-defibrillator (ICD) battery required [Z95.810] Procedures LA RMVL IMPLTBL DFB PLS GEN W/RPLCMT PLS GEN [employer] PROFESSIONAL LD ICD BIV Generator Change Out Margareth Nunez MD [address] [address] [facility] [address] [place] [address] Referral ID Status Reason Start Date Expiration Date Visits Re quested Visits Authorized [id number] 1 1 Reason Comments Dizziness Specialty Diagnoses / Procedures Referred By Purnima t Referred To Contact Diagnoses Hypokalemia Dizziness Swapnil Brand MD [address] [place] [address] [facility] [address] [place] [address] Referral ID Status Reason Start Date Expiration Date Visits Re quested Visits Authorized [id number] 1 1 Specialty Diagnoses / Procedures Referred By Contac t Referred To Contact Pharmacist / Pharmacy Diagnoses Longstanding persistent atrial fibrillation (HCC) Swapnil Brand MD [address] [place] [address] [facility] [address] [place] [address] Referral ID Status Reason Start Date Expiration Date Visits Requested Visits Authorized [id number] Authorized Specialty Services Required 10/06/2023 10/05/2024 99 99 Goals (unrecognized section and content) Goals may be documented in a n alternate section Scheduled Active and Recently Administ ered Medications (unrecognized section and content) Medication Order 09/27/2023 09/28/2023 09/29/2023 chlorhexidine (Hibiclens) 4 % liquid (COMPLETED) Topical, Once, On Wed09/29/23 at 0630, For 1 dose, Preprocedure, For pre-op skin preparation 0630 (Given - Provid er: Amelie Maloney RN) mupirocin (Bactroban) 2 % ointment 1 Application (COMPLETED) 1 Application, Topical, Once, On Wed09/29/23 at 0630, For 1 dose, Preprocedure, Apply topically to both nares prior to procedure. Do not initiate until staph screening obtained first. 0636 (Given - Provid er: Amelie Maloney RN) potassium chloride 20 mEq in 100 mL IV premix (COMPLETED) 20 mEq, intravenous, at 50 mL/hr, Administer over 2 Hours, Once, On Wed09/29/23 at 0800, For 1 dose 0800 (Due)0930 (Cont inued from OR - Provider: Amelie Maloney RN) vancomycin (Vancocin) 1 g in dextrose 5% water 200 mL (COMPLETED) 1 g, intravenous, at 200 mL/hr, Administer over 60 Minutes, Once, On Wed09/29/23 at 0745, For 1 dose, premix bag, Dosing of this medication varies based on severity of illness. Does this patient have sepsis or concern for sepsis (probable or documented infection plus systemic manifestations of infection)? No, Suspected Indication (Select all that apply): Surgical Prophylaxis 0736 (New Bag - Prov ider: Amelie Maloney RN)0836 (Due: Stopped - Provider: Amelie Maloney RN) Continuous Medication Order 09/27/2023 09/28/2023 09/29/2023 sodium chloride 0.9% infusion (CANCELED) 20 mL/hr, intravenous, Continuous, Starting on Wed09/29/23 at 0630, Preprocedure 0636 (New Bag - Prov ider: Amelie Maloney RN)0903 (Continued by Anesthesia - Provider: Sy Gastelum APRN-ORAL AND MAXILLOFACIAL SURGEON)0937 (Due: Stopped - Provider: Yessi Miller, PETE-BANDAGE WRAPPING MACHINE OPERATOR)0948 (Anesthesia Volume Adjustment - Provider: Sy Gastelum APRN-ORAL AND MAXILLOFACIAL SURGEON) PRN Medication Order 09/27/2023 09/28/2023 09/29/2023 acetaminophen (Tylenol) tablet 650 mg 650 mg, oral, Every 4 hours PRN, pain mild (1-3), first line, Starting on Wed09/29/23 at 0944, If ordered PRN for pain, nurse is permitted to administer this medication for higher pain scores based on patient preference? Yes 1059 (Given - Provid er: Amelie Maloney RN) bupivacaine PF (Marcaine) 0.25 % (2.5 mg/mL) injection (CANCELED) As needed, Starting on Wed09/29/23 at 0908, Intraprocedure 0908 (Given - Provid er: Margareth Nunez MD)0912 (Given - Provider: Margareth Nunez MD - Comment: pocket revision) lidocaine PF (Xylocaine) 10 mg/mL (1 %) injection (CANCELED) As needed, Starting on Wed09/29/23 at 0907, Intraprocedure 0907 (Given - Provid er: Margareth Nunez MD - Comment: left chest) meperidine PF (Demerol) injection (CANCELED) As needed, Starting on Wed09/29/23 at 0839, Intraprocedure 0839 (Given - Provid er: Ciarra Cesar RN) metoclopramide (Reglan) injection (CANCELED) Administer over 2 Minutes, As needed, Starting on Wed09/29/23 at 0840, Intraprocedure 0840 (Given - Provid er: Ciarra Cesar RN) midazolam (Versed) injection (CANCELED) As needed, Starting on Wed09/29/23 at 0838, Intraprocedure 0838 (Given - Provid er: Ciarra Cesar RN)0915 (Given - Provider: Sy Gastelum, BIRD TRAPPER-ORAL AND MAXILLOFACIAL SURGEON) potassium chloride 20 mEq in 100 mL IV premix (CANCELED) Administer over 2 Hours, Continuous PRN, Starting on Wed09/29/23 at 0849, Intraprocedure 0849 (New Bag - Prov ider: Ciarra Cesar RN - Comment: Slowed down due to burning in her arm.) Scheduled Medication Order 10/05/2023 10/06/2023 10/07/2023 acetaminophen (TYLENOL) tablet 1,000 mg (COMPLETED) 1,000 mg, Oral, ONCE, 1 dose, On Wed10/05/23 at 2330, Maximum dose of acetaminophen is 4000 mg from all sources in 24 hours. 232 (Given - Provider: Patrice Mukherjee RN) amiodarone (CORDARONE) tablet 400 mg 400 mg, Oral, DAILY, First dose on Wed10/06/23 at 0900, Until Discontinued 1043 (Given - Provider: Yvette Alatorre RN) 0844 (Given - Provider: Brenda Martinez RN) atorvastatin (LIPITOR) tablet 80 mg 80 mg, Oral, NIGHTLY, First dose on Wed10/06/23 at 0100, Until Discontinued 0056 (Given - Provider: Tevin Gauthier, NAYLA)220 (Given - Provider: Dennis Bustos RN) 2100 (Due) cefTRIAXone (ROCEPHIN) 1,000 mg in sodium chloride 0.9 % 50 mL IVPB (mini-bag) (COMPLETED) 1,000 mg, IntraVENous, ONCE, 1 dose, On Wed10/05/23 at 2300, Antimicrobial Indications: Urinary Tract Infection 232 (New Bag - Provider: Patrice Mukherjee RN) 0037 (Stopped - Provider: Tevin Gauthier RN) enoxaparin (LOVENOX) injection 70 mg 70 mg (rounded from 70.3 mg = 1 mg/kg 70.3 kg), SubCUTAneous, 2 TIMES DAILY, First dose (after last modification) on Wed10/06/23 at 0100, Until Discontinued, Indication of Use: Prophylaxis-DVT/PE, Other, Other Enoxaparin Indication: subtherapeutic INR, Administer by deep subCUTAneous injection with pt lying down. Alternate injection sites on abdominal wall. Do not rub site after injection. Check with provider prior to any invasive procedure. 0056 (Given - Provider: Tevin Gauthier RN)131 (Given - Provider: Yvette Alatorre RN - Comment: Pt gave herself as patient education)2203 (Given - Provider: Dennis Bustos RN) 0900 (Due)2100 (Due) FLUoxetine (PROZAC) capsule 40 mg 40 mg, Oral, DAILY, First dose on Wed10/06/23 at 0900, Until Discontinued 1043 (Given - Provider: Yvette Alatorre RN) 0844 (Given - Provider: Brenda Martinez, NAYLA) isosorbide mononitrate (IMDUR) extended release tablet 30 mg 30 mg, Oral, DAILY, First dose on Wed10/06/23 at 0900, Until Discontinued, Do not crush or chew. 1043 (Given - Provider: Yvette Alatorre RN) 0845 (Given - Provider: Brenda Martinez, NAYLA) levothyroxine (SYNTHROID) tablet 75 mcg 75 mcg, Oral, DAILY, First dose on Wed10/06/23 at 0700, Until Discontinued, Tube feeding (TF) interaction, obtain physician order to manage, recommend holding TF for 30 minutes before and after dose. 0553 (Given - Provider: Tevin Gauthier RN) 0511 (Given - Provider: Dennis Bustos, NAYLA)0845 (Given - Provider: Brenda Martinez, NAYLA) magnesium oxide (MAG-OX) tablet 400 mg 400 mg, Oral, DAILY, First dose on Wed10/06/23 at 0900, Until Discontinued 1042 (Given - Provider: Yvette Alatorre RN) 0845 (Given - Provider: Brenda Martinez, NAYLA) metoprolol succinate (TOPROL XL) extended release tablet 100 mg 100 mg, Oral, DAILY, First dose on Wed10/06/23 at 0900, Until Discontinued, Do not crush or chew. 1043 (Given - Provider: Yvette Alatorre RN) 0845 (Given - Provider: Brenda Martinez RN) pantoprazole (PROTONIX) tablet 40 mg 40 mg, Oral, DAILY BEFORE BREAKFAST, First dose on Wed10/06/23 at 0700, Until Discontinued, Do not crush or break. Substituted for Omeprazole (PRILOSEC). 0553 (Given - Provider: Tevin Gauthier RN) 0512 (Given - Provider: Dennis Bustos RN) permethrin (NIX) 1 % liquid (COMPLETED) Topical, ONCE, On Wed10/06/23 at 0115, For 1 dose, Apply to head/scalp per package directions for head lice. 0134 (Given - Provider: Tevin Gauthier RN - Comment: head/scalp/neck) potassium bicarb-citric acid (EFFER-K) effervescent tablet 40 mEq (COMPLETED) 40 mEq, Oral, ONCE, 1 dose, On Wed10/05/23 at 2030, Do not chew or crush. Dissolve flavored tablets completely in 3 to 4 ounces of cold water; unflavored tablets may be dissolved in 3 to 4 ounces of cold juice. Patient to sip slowly over a 5 to 10 minute period. May further dilute if GI adverse effects occur. 2037 (Given - Provider: Moncho Zuñiga RN) potassium chloride (KLOR-CON M) extended release tablet 20 mEq 20 mEq, Oral, 2 TIMES DAILY WITH MEALS, First dose on Wed10/06/23 at 1700, Until Discontinued, Do not crush, chew, or suck on tablet. Tablet may also be broken in half and each half swallowed separately. 1824 (Given - Provider: Yvette Alatorre RN) 0845 (Given - Provider: Brenda Martinez, NAYLA)1700 (Due) potassium chloride 10 mEq/100 mL IVPB (Peripheral Line) (COMPLETED) 10 mEq, IntraVENous, EVERY HOUR, 4 doses, First dose on Wed10/05/23 at 2100, Last dose on Wed10/06/23 at 0000, at 100 mL/hr 2045 (New Bag - Provider: Moncho Zuñiga RN)2221 (New Bag - Provider: Moncho Zuñiga RN)2325 (New Bag - Provider: Patrice Mukherjee RN) 0045 (New Bag - Provider: Tevin Gauthier RN)0157 (Stopped - Provider: Tevin Gauthier RN) rOPINIRole (REQUIP) tablet 2 mg 2 mg, Oral, 3 TIMES DAILY, First dose (after last modification) on Wed10/06/23 at 0300, Until Discontinued 0246 (Given - Provider: Tevin Gauthier RN)1042 (Given - Provider: Yvette Alatorre RN)1428 (Given - Provider: Yvette Alatorre RN)2204 (Given - Provider: Dennis Bustos, NAYLA) 0844 (Given - Provider: Brenda Martinez, NAYLA)1400 (Due)2100 (Due) sodium chloride 0.9 % bolus 100 mL (COMPLETED) 100 mL (1.42 mL/kg), IntraVENous, at 2,000 mL/hr, Administer over 3 Minutes, ONCE, On Wed10/05/23 at 2145, For 1 dose 215 (New Bag - Provider: Mavis Marcum) 0037 (Stopped - Provider: Tevin Gauthier RN) sodium chloride flush 0.9 % injection 10 mL (COMPLETED) 10 mL, IntraVENous, ONCE, 1 dose, On Wed10/05/23 at 2145 2153 (Given - Provider: Mavis Marcum) sodium chloride flush 0.9 % injection 5-40 mL 5-40 mL, IntraVENous, EVERY 12 HOURS SCHEDULED (2 times per day), First dose on Wed10/06/23 at 0900, Until Discontinued, For Line Patency: Peripheral IV = 5 mL; Midline or Central Line = 10 mL/lumen. If following IV push medication, administer flush at same rate as the IV push. Flush volume is determined by type of infusion therapy being given. For non-viscous solutions use: Peripheral IV = 5 mL Midline or Central Line = 10 mL/lumen For viscous solutions (i.e. blood components, parenteral nutrition, contrast media, or after obtaining blood sample) use: Peripheral IV = 10 mL Midline or Central Line = 20 mL/lumen 1043 (Given - Provider: Yvette Alatorre RN)2204 (Given - Provider: Dennis Bustos RN) 1139 (Given - Provider: Brenda Martinez RN)2100 (Due) traZODone (DESYREL) tablet 50 mg 50 mg, Oral, NIGHTLY, First dose on Wed10/06/23 at 0100, Until Discontinued 55 (Given - Provider: Tevin Gauthier RN)2203 (Given - Provider: Dennis Bustos RN) 2099 (Due) warfarin (COUMADIN) tablet 7.5 mg (COMPLETED) 7.5 mg, Oral, ONCE Warfarin, 1 dose, On Wed10/06/23 at 1800, Indication of Use: Other, Other Warfarin Indication: Cardiomegaly/ pulmonary vascular congestion, What is the patient's goal INR? 2.0 - 3.0, Review INR prior to administration. Hazardous med- See facility policy for handling/disposal 1824 (Given - Provider: Yvette Alatorre RN) warfarin (COUMADIN) tablet 7.5 mg 7.5 mg, Oral, ONCE Warfarin, 1 dose, On Summer 10/07/23 at 1800, Indication of Use: Other, Other Warfarin Indication: Cardiomegaly/ pulmonary vascular congestion, What is the patient's goal INR? 2.0 - 3.0, Review INR prior to administration. Hazardous med- See facility policy for handling/disposal 1800 (Due) warfarin placeholder: dosing by pharmacy Please contact the pharmacy if a dose is not entered by 1600. Review INR prior to warfarin administration. Continuous Medication Order 10/05/2023 10/06/2023 10/07/2023 0.9 % sodium chloride infusion () IntraVENous, at 50 mL/hr, CONTINUOUS, Starting on Wed10/05/23 at 2045, For 4 hours 2044 (New Bag - Provider: Moncho Zuñiga RN) 0156 (Stopped - Provider: Tevin Gauthier RN) PRN Medication Order 10/05/2023 10/06/2023 10/07/2023 0.9 % sodium chloride infusion IntraVENous, at 5-250 mL/hr, PRN, if patient receiving piggyback infusions and maintenance fluids are not ordered OR KVO fluids to protect IV site / prevent frequent line interruptions/ long duration, Starting on Wed10/06/23 at 0008, For piggyback infusion, administer at same rate as piggyback for a total of 25 mL. Enter 25 mL into dose field and piggyback rate into rate field of order. If piggyback is infusing at a rate less than 100 mL/hr, enter 25 mL into dose field and 100 mL/hr into rate field of order. For KVO fluids, enter rate of 20 mL/hr or less into rate field of order. acetaminophen (TYLENOL) suppository 650 mg(Linked Group 1) 650 mg, Rectal, EVERY 6 HOURS PRN, Starting on Wed10/06/23 at 0008, Until Discontinued, Pain Mild (1-3), Fever, For temp greater than 100.4 F (38 C), Administer if oral route cannot be used. acetaminophen (TYLENOL) tablet 650 mg(Linked Group 1) 650 mg, Oral, EVERY 6 HOURS PRN, Starting on Wed10/06/23 at 0008, Until Discontinued, Pain Mild (1-3), Fever, For temp greater than 100.4 F (38 C), Maximum dose of acetaminophen is 4000 mg from all sources in 24 hours. albuterol sulfate HFA (PROVENTIL;VENTOLIN;PROA IR) 108 (90 Base) MCG/ACT inhaler 1 puff 1 puff, Inhalation, EVERY 4 HOURS PRN, Starting on Wed10/06/23 at 0033, Until Discontinued, Wheezing, Initiate RT Bronchodilator Protocol: Yes - Inpatient Protocol [id number] 50-300-40 MG per capsule 1 capsule 1 capsule, Oral, EVERY 4 HOURS PRN, Starting on Wed10/06/23 at 0034, Until Discontinued, Headaches, Maximum dose of acetaminophen is 4000 mg from all sources in 24 hours. 1152 (Given - Provider: Yvette Alatorre RN)1552 (Given - Provider: Yvette Alatorre RN)2209 (Given - Provider: Dennis Bustos RN) 0844 (Given - Provider: Brenda Martinez, NAYLA) iopamidol (ISOVUE-370) 76 % injection 75 mL (COMPLETED) 75 mL, IntraVENous, IMG ONCE PRN, 1 dose, Starting on Wed10/05/23 at 2133, Until Wed10/05/23 at 215, Other 2153 (Given - Provider: Mavis Marcum) LORazepam (ATIVAN) tablet 0.5 mg 0.5 mg, Oral, 3 TIMES DAILY PRN, Starting on Wed10/06/23 at 0034, Until Discontinued, Anxiety 0056 (Given - Provider: Tevin Gauthier RN)1043 (Given - Provider: Yvette Alatorre, RN)2022 (Given - Provider: Dennis Bustos, NAYLA) 448 (Given - Provider: Dennis Bustos, NAYLA) magnesium hydroxide (MILK OF MAGNESIA) 400 MG/5ML suspension 30 mL 30 mL, Oral, DAILY PRN, Starting on Wed10/06/23 at 0008, Until Discontinued, Constipation, First line therapy for constipation. magnesium sulfate 2000 mg in water 50 mL IVPB 2,000 mg, IntraVENous, at 25 mL/hr, Administer over 2 Hours, PRN, Other, Magnesium Replacement, Starting on Wed10/06/23 at 0008, Mag Lab Replacement Action 1.4-1.6 mg/dL 2,000 mg Total Dose Given as 1,000 mg IVPB x 2 doses or 2,000 mg IVPB x 1 dose 1.0-1.3 mg/dL 4,000 mg Total Dose Given as 1,000 mg IVPB x 4 doses or 2,000 mg IVPB x 2 doses Less than 1.0 mg/dL CALL PHYSICIAN and give 4,000 mg Total Dose Given as 1,000 mg IVPB x 4 doses or 2,000 mg IVPB x 2 doses Infuse at 1,000 mg/hr Repeat Mag level next AM Protocol not for use in Patients with CrCl less than 30ml/min potassium bicarb-citric acid (EFFER-K) effervescent tablet 40 mEq(Linked Group 2) 40 mEq, Oral, PRN, Starting on Wed10/06/23 at 0008, Until Discontinued, Per Potassium Replacement Protocol, Administer as alternative if patient unable to tolerate oral tablet. K Lab Replacement Action 3.1 to 3.5 40 mEq ORAL x 1 Under 3.1 Refer to IV replacement protocol Recheck K level in AM. Protocol not for use in patients with CrCl less than 30 mL/min. Do not chew or crush. Dissolve flavored tablets completely in 3 to 4 ounces of cold water; unflavored tablets may be dissolved in 3 to 4 ounces of cold juice. Patient to sip slowly over a 5 to 10 minute period. May further dilute if GI adverse effects occur. 1500 (See Alternative - Provider: Yvette Alatorre RN) potassium chloride (KLOR-CON M) extended release tablet 40 mEq(Linked Group 2) 40 mEq, Oral, PRN, Starting on Wed10/06/23 at 0008, Until Discontinued, Potassium Replacement, May give alternative linked oral order (ordered as effervescent, packet, or liquid solution) if patient unable to tolerate tablet. K Lab Replacement Action 3.1 to 3.5 40 mEq ORAL x 1 Under 3.1 Refer to IV replacement protocol Recheck K level in AM. Protocol not for use in patients with CrCl less than 30 mL/min. Do not crush, chew, or suck on tablet. Tablet may also be broken in half and each half swallowed separately. 1500 (Given - Provider: Yvette Alatorre RN) potassium chloride 10 mEq/100 mL IVPB (Peripheral Line)(Linked Group 2) 10 mEq, IntraVENous, PRN, Starting on Wed10/06/23 at 0008, Until Discontinued, at 100 mL/hr, Potassium Replacement, K Lab Replacement Action 2.7 to 3.0 10 mEq IVPB x 6 doses (60 mEq Total) Under 2.7 CALL PROVIDER and administer 10 mEq IVPB x 6 doses (60 mEq Total) Infuse at 10 mEq/hr. Repeat Potassium lab 1 hour after final administration. Protocol not for use in patients with CrCl less than 30 mL/min. 1500 (See Alternative - Provider: Yvette Alatorre RN) promethazine (PHENERGAN) 12.5 mg in sodium chloride 0.9 % 50 mL IVPB 12.5 mg, IntraVENous, at 200 mL/hr, Administer over 15 Minutes, EVERY 6 HOURS PRN, Vomiting, Nausea, Starting on Wed10/06/23 at 0038, Administer via antecubital vein or higher. 0115 (New Bag - Provider: Tevin Gauthier, NAYLA)0134 (Stopped - Provider: Tevin Gauthier, NAYLA) sodium chloride flush 0.9 % injection 10 mL 10 mL, IntraVENous, PRN, Starting on Wed10/06/23 at 0008, Until Discontinued, Line Care, After every IV line use Linked Groups Order Group 1: acetaminophen (TYLENOL) tablet 650 mgJump to med 650 mg, Oral, EVERY 6 HOURS PRN, Starting on Wed10/06/23 at 0008, Until Discontinued, Pain Mild (1-3), Fever, For temp greater than 100.4 F (38 C)
Maximum dose of acetaminophen is 4000 mg from all sources in 24 hours.
Or acetaminophen (TYLENOL) suppository 650 mgJump to med 650 mg, Rectal, EVERY 6 HOURS PRN, Starting on Wed10/06/23 at 0008, Until Discontinued, Pain Mild (1-3), Fever, For temp greater than 100.4 F (38 C)
Administer if oral route cannot be used.
Group 2: potassium chloride (KLOR-CON M) extended release tablet 40 mEqJump to med 40 mEq, Oral, PRN, Starting on Wed10/06/23 at 0008, Until Discontinued, Potassium Replacement
May give alternative linked oral order (ordered as effervescent, packet, or liquid solution) if patient unable to tolerate tablet. K Lab Repla cemen t Action 3.1 to 3.5 40 mEq ORAL x 1 Under 3.1 Refer to IV replacement protocol Recheck K level in AM. Protocol not for use in patients with CrCl less than 30 mL/min. Do not crush, chew, or suck on tablet. Tablet may also be broken in half and each half swallowed separately.
Or potassium bicarb-citric acid (EFFER-K) effervescent tablet 40 mEqJump to med 40 mEq, Oral, PRN, Starting on Wed10/06/23 at 0008, Until Discontinued, Per Potassium Replacement Protocol
Administer as alternative if patient unable to tolerate oral tablet. K Lab Repla cemen t Action 3.1 to 3.5 40 mEq ORAL x 1 Under 3.1 Refer to IV replacement protocol Recheck K level in AM. Protocol not for use in patients with CrCl less than 30 mL/min. Do not chew or crush. Dissolve flavored tablets completely in 3 to 4 ounces of cold water; unflavored tablets may be dissolved in 3 to 4 ounces of cold juice. Patient to sip slowly over a 5 to 10 minute period. May further dilute if GI adverse effects occur.
Or potassium chloride 10 mEq/100 mL IVPB (Peripheral Line)Jump to med 10 mEq, IntraVENous, PRN, Starting on Wed10/06/23 at 0008, Until Discontinued, at 100 mL/hr, Potassium Replacement
K Lab Replacement Action 2.7 to 3.0 10 mEq IVPB x 6 doses (60 mEq Total) Under 2.7 CALL PROVIDER and administer 10 mEq IVPB x 6 doses (60 mEq Total) Infuse at 10 mEq/hr. Repeat Potassium lab 1 hour after final administration. Protocol not for use in patients with CrCl less than 30 mL/min.
Ordered Prescriptions (unrec ognized section and content) Prescription Sig Dispensed Refills Start Date End Da te rOPINIRole (REQUIP) 2 MG tablet Take 1 tablet by mouth nightly 30 tablet 0 10/07/2023 butalbital-acetaminophen -caffeine (FIORICET, ESGIC) 50-325-40 MG per tablet Take 1 tablet by mouth every 4 hours as needed for Headaches 30 tablet 0 10/07/2023 enoxaparin (LOVENOX) 80 MG/0.8ML Inject 0.7 mLs into the skin 2 times daily 14 each 0 10/06/2023 FOR RECORDS PERTAINING TO PATIENTS WHO ARE [...] BE BASED ON THE PRIMARY CLINICAL RECORDS. [facility]. provides no warranty or guarantee of the accuracy or completeness of information in this document.
--- NOTE | 2024-02-17 23:06 | ECG_ITS ---
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
--- NOTE | 2024-02-17 23:08 | ED.GENADUL1 ---
HPI HPI - General Adult General Chief complaint: Weakness Stated complaint: WEAKNESS Time Seen by Provider: 02/17/24 22:57 Source: patient Mode of arrival: ambulance Limitations: no limitations History of Present Illness HPI narrative: This 53-year-old female with a history of heart disease and migraine headaches is brought to the emergency department by EMS from home. The patient states she had a heart attack in her 20s and has a AICD. She states this was because she had rheumatic fever as a child. 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 She has a headache and feels weak. She states that ever since having heart disease when the barometric pressure drops she gets a headache. She is also out of her Ativan. She states that she is on Coumadin and has not had her INR checked in a period of time but did a lot of bleeding today. She denies any chest pain or shortness of breath. She has a generalized headache. She has not vomited or had any diarrhea. She has no abdominal pain or back pain. She states that there is air conditioning in the apartment that she is currently staying in but the ladies turn it off. She states she is under a lot of stress because her parents and sibling in the past year from cancer. She has recently been homeless but bought her first home, a trailer locally yesterday. She cannot move into the trailer for 45 days. She is not technically homeless because she is staying with one of the ladies that she helps to care for. Related Data Home Medications ?Medication ?Instructions ?Recorded ?Confirmed atorvastatin 80 mg tablet 80 mg PO DAILY 03/18/23 07/28/23 baclofen 5 mg tablet 5 mg PO TID PRN back spasm or pain 03/18/23 05/31/23 clonazepam 0.5 mg tablet 0.5 mg PO TID PRN anxiety 03/18/23 05/31/23 isosorbide mononitrate 30 mg 30 mg PO DAILY 03/18/23 07/28/23 tablet,extended release 24 hr levothyroxine 75 mcg tablet 75 mcg PO DAILY 03/18/23 07/28/23 nitroglycerin 0.4 mg sublingual 0.4 mg sublingual Q5M PRN chest 03/18/23 07/28/23 tablet pain omeprazole 40 mg capsule,delayed 40 mg PO DAILY 03/18/23 07/28/23 release potassium chloride 20 mEq 20 meq PO DAILY 03/18/23 07/28/23 tablet,extended release(part/cryst) ropinirole 2 mg tablet 2 mg PO TID 03/18/23 07/28/23 trazodone 50 mg tablet 50 mg PO QPM 03/18/23 07/28/23 warfarin 5 mg tablet 5 mg PO DAILY 03/18/23 07/28/23 albuterol sulfate 90 mcg/actuation 1 puff inhalation Q6H PRN SOB 05/07/23 07/28/23 aerosol inhaler [id number]-[id number] 1 cap PO Q4H PRN headache 05/07/23 07/28/23 50 mg-300 mg-40 mg capsule (Fioricet) metoprolol succinate 100 mg 100 mg PO DAILY 05/07/23 07/28/23 tablet,extended release 24 hr Previous Rx's ?Medication ?Instructions ?Recorded fluoxetine 20 mg capsule 40 mg (2 x 20 mg) PO DAILY #0 caps 05/08/23 furosemide 40 mg tablet (Lasix) 40 mg PO BID #60 tabs 05/08/23 amiodarone 200 mg tablet (Pacerone) 200 mg PO QD #30 tabs 05/20/23 methocarbamol 500 mg tablet 500 mg PO Q8H PRN muscle pain #10 05/31/23 tabs cephalexin 500 mg capsule 500 mg PO BID 10 days #20 caps 06/04/23 amoxicillin 875 mg-potassium 1 tab PO Q12H #20 tabs 09/05/23 clavulanate 125 mg tablet doxycycline hyclate 100 mg tablet 100 mg PO BID 7 days #14 tabs 09/05/23 Allergies Allergy/AdvReac Type Severity Reaction Status Date / Time erythromycin base Allergy Unknown Verified 02/17/24 22:51 ondansetron [From Zofran] AdvReac tachycardia Verified 02/17/24 22:51 Opioid HPI Opioid Management Most Recent Opioid Data: Last Pain Scale 7 06/04/23 19:05 Review of Systems ROS Status of ROS 10 or more systems reviewed and unremarkable except as noted in history and below [facility] Medical History (Updated 02/18/24 @ 02:11 by Lina Martin MD) Lactic acidosis ?E87.20 - Acidosis, unspecified (ICD-10) Fluid overload ?E87.70 - Fluid overload, unspecified (ICD-10) Nausea ?R11.0 - Nausea (ICD-10) Generalized weakness ?R53.1 - Weakness (ICD-10) ANTONINA (generalized anxiety disorder) ?F41.1 - Generalized anxiety disorder (ICD-10) RLS (restless legs syndrome) ?G25.81 - Restless legs syndrome (ICD-10) Hypothyroid ?E03.9 - Hypothyroidism, unspecified (ICD-10) Hyperlipidemia ?E78.5 - Hyperlipidemia, unspecified (ICD-10) CAD (coronary artery disease) ?I25.10 - Atherosclerotic heart disease of [place] coronary artery without angina pectoris (ICD-10) Paroxysmal atrial fibrillation ?I48.0 - Paroxysmal atrial fibrillation (ICD-10) Chronic HFrEF (heart failure with reduced ejection fraction) ?I50.22 - Chronic systolic (congestive) heart failure (ICD-10) Hypertension ?I10 - Essential (primary) hypertension (ICD-10) Rheumatic fever ?I00 - Rheumatic fever without heart involvement (ICD-10) Pacemaker ?Z95.0 - Presence of cardiac pacemaker (ICD-10) Myocardial infarct, old ?I25.2 - Old myocardial infarction (ICD-10) Multifocal pneumonia ?J18.9 - Pneumonia, unspecified organism (ICD-10) CHF (congestive heart failure) ?I50.9 - Heart failure, unspecified (ICD-10) Acute torticollis ?M43.6 - Torticollis (ICD-10) Fracture of head of humerus with routine healing ?S42.293D - Other displaced fracture of upper end of unspecified humerus, subsequent encounter for fracture with routine healing (ICD-10) Closed head injury ?S09.90XA - Unspecified injury of head, initial encounter (ICD-10) Fall from chair ?W07.XXXA - Fall from chair, initial encounter (ICD-10) Surgical History History of hysterectomy ?Z90.710 - Acquired absence of both cervix and uterus (ICD-10) Mitral valve replaced ?Z95.2 - Presence of prosthetic heart valve (ICD-10) Family History Grandmother Family history of CHF (congestive heart failure) Family history of cancer Family history of hypertension Father Family history of COPD (chronic obstructive pulmonary disease) Family history of cancer Family history of diabetes mellitus Family history of hypertension Sister Family history of COPD (chronic obstructive pulmonary disease) Mother Family history of cancer Family history of hypertension Family history of myocardial infarction Family history of stroke Brother Family history of cancer Grandfather Family history of cancer Social History (Updated 05/20/23 @ 11:23 by Shaikh Crystal MD) Within the past year, how often did you have a drink containing alcohol: never Score interpretation: A score less than 3 is consistent with normal alcohol consumption. Smoking status: Former smoker Non-prescribed substance use: denies use Exam Narrative Exam Narrative: Vital signs and Nursing Notes reviewed: Signs reviewed, the patient is afebrile, she is mildly tachycardic with a pulse of 99 blood pressure is mildly elevated at 141/85, she is not hypoxic with pulse ox of 99% on room air General: Awake, alert, oriented, no acute distress, lying comfortably on the stretcher, no acute distress HEENT: Normocephalic atraumatic, mucous membranes are moist and pink, eyes are clear, normal conjunctiva, vision is grossly intact Neck: Supple, no meningeal signs, no anterior or posterior cervical lymphadenopathy Chest: Lungs are clear to auscultation with good air entry, there is no wheezing rhonchi or rales appreciated no accessory muscle use, patient is speaking in complete sentences-no chest wall tenderness to palpation CVS: Regular rate and rhythm S1-S2, no murmurs rubs or gallops, pulses are brisk and equal bilaterally ABD: Soft, nondistended, nontender, no rebound guarding or rigidity, bowel sounds are normal, no pulsatile masses appreciated Extremities: Moving all extremities, no lower extremity tenderness or swelling noted, negative Homans' sign, pulses are brisk and equal bilaterally Skin: Normal in appearance without rash,pallor, petechiae or purpura Neuro: No focal deficits Constitutional Vital Signs, click to edit/add: Last Vital Signs Temp 98.3 F 02/17/24 22:51 Pulse 80 02/18/24 00:19 Resp 21 H 02/18/24 00:19 BP 130/84 02/18/24 01:01 Pulse Ox 98 02/18/24 00:19 O2 Del Method Room Air 02/17/24 23:22 Course Vital Signs Vital signs: Vital Signs Temperature 98.3 F 02/17/24 22:51 Pulse Rate 99 H 02/17/24 22:51 Respiratory Rate 16 02/17/24 22:51 Blood Pressure 141/85 02/17/24 22:51 Pulse Oximetry 99 02/17/24 22:51 Oxygen Delivery Method Room Air 02/17/24 22:51 Temperature 98.3 F 02/17/24 22:51 Pulse Rate 80 02/18/24 00:19 Respiratory Rate 21 H 02/18/24 00:19 Blood Pressure 130/84 02/18/24 01:01 Pulse Oximetry 98 02/18/24 00:19 Oxygen Delivery Method Room Air 02/17/24 23:22 Medical Decision Making MDM Narrative Medical decision making narrative: This 53-year-old female who has a history of cardiac disease with a defibrillator who is on Coumadin and several cardiac medications and also Ativan for anxiety is brought to emergency department by EMS from home. The patient states she is homeless but is currently staying with friends and recently closed on a trailer. 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 She complains of a migraine headache and feels rundown. She is also out of her Ativan for the past 2 weeks states she has an appointment with her family physician on Wednesday for refill of her Ativan. I did review her [facility] report and she does get Ativan on a recurrent basis from several different providers. She also gets routine prescriptions for Fioricet and according to [facility], picked up a Rx for 180 of them on 02/17/24. She denies any eliana chest pain. She has not had a fever. She was medicated emergency department with gentle hydration, Tylenol for her headache and an Ativan for her anxiety. Cardiac workup was ordered. She has a normal white count and hemoglobin. Electrolytes are normal. Troponin is normal at 24.6. Coumadin is therapeutic at 2.68. On reevaluation she states she is feeling restless and requests to use the bathroom. The results of her labs were discussed with her. Chest x-ray shows cardiomegaly with mild peripheral vascular congestion and is consistent with previous x-rays she has had. Lab Data Lab results reviewed: Yes I reviewed the patient's lab results Labs: Lab Results 02/17/24 Range/Units 23:15 WBC 8.9 (4.0-11.0) 10^3/uL RBC 5.03 (4.20-5.40) 10^6/uL Hgb 9.6 L (12.0-16.0) g/dL Hct 34.1 L (36.0-48.0) % MCV 67.8 L (81.0-99.0) fL MCH 19.1 L (26.7-34.0) pg MCHC 28.2 L (29.9-35.2) g/dL RDW 21.2 H (11.0-15.0) % Plt Count 289 (150-450) 10^3/uL MPV 10.5 (9.5-13.5) fL Neut % (Auto) 66.2 (43.0-75.0) % Lymph % (Auto) 20.1 L (20.5-60.0) % [place] % (Auto) 10.9 (1.7-12.0) % Eos % (Auto) 0.9 (0.9-7.0) % Baso % (Auto) 1.7 (0.2-2.0) % Neut # (Auto) 5.9 (1.4-6.5) 10^3/uL Lymph # (Auto) 1.8 (1.2-3.8) 10^3/uL [place] # (Auto) 1.0 H (0.3-0.8) 10^3/uL Eos # (Auto) 0.1 (0.0-0.7) 10^3/uL Baso # (Auto) 0.2 H (0.0-0.1) 10^3/uL Abs Immat Gran (auto) 0.02 (0.00-0.03) 10^3/uL Imm/Tot Granulo (auto) 0.2 (0.0-0.5) % PT 25.8 H (9.0-11.6) sec INR 2.68 Sodium 134 L (136-145) mmol/L Potassium 3.6 (3.5-5.1) mmol/L Chloride 100 (98-107) mmol/L Carbon Dioxide 24.8 (21.0-32.0) mmol/L Anion Gap 12.8 BUN 21.0 H (7.0-18.0) mg/dL Creatinine 1.13 H (0.55-1.02) mg/dL Est GFR ( Amer) >60 (>=60) Est GFR (Non-Af Amer) 50 L (>=60) BUN/Creatinine Ratio 18.6 Glucose 112 H (74-106) mg/dL Calcium 8.9 (8.5-10.1) mg/dL Total Bilirubin 0.8 (0.2-1.0) mg/dL AST 43 H (15-37) U/L ALT 26 (14-59) U/L Alkaline Phosphatase 347 H (46-116) U/L Troponin I High Sens 24.6 (4.0-51.3) pg/mL Total Protein 7.9 (6.4-8.2) g/dL Albumin 3.6 (3.4-5.0) g/dL Globulin 4.3 g/dL Albumin/Globulin Ratio 0.8 ECG Data Attestation: I personally reviewed and interpreted this ECG as follows: (Paced at 80 bpm with a left axis) Discharge Plan Discharge Stand Alone Forms: Portal Instructions Chief Complaint: Weakness Clinical Impression: Headache, Generalized anxiety disorder, Heat exhaustion Patient Disposition: Home, Self-Care Time of Disposition Decision: 01:51 Condition: Good Prescriptions / Home Meds: No Action metoprolol succinate 100 mg tablet extended release 24 hr 100 mg PO DAILY albuterol sulfate 90 mcg/actuation HFA aerosol inhaler 1 puff INHALATION Q6H PRN (Reason: SOB) [id number] [Fioricet] 50-300-40 mg capsule 1 cap PO Q4H PRN (Reason: headache) furosemide [Lasix] 40 mg tablet 40 mg PO BID Qty: 60 0RF fluoxetine 20 mg capsule 40 mg PO DAILY Qty: 0 0RF methocarbamol 500 mg tablet 500 mg PO Q8H PRN (Reason: muscle pain) Qty: 10 0RF cephalexin 500 mg capsule 500 mg PO BID 10 Days Qty: 20 0RF atorvastatin 80 mg tablet 80 mg PO DAILY trazodone 50 mg tablet 50 mg PO QPM isosorbide mononitrate 30 mg tablet extended release 24 hr 30 mg PO DAILY clonazepam 0.5 mg tablet 0.5 mg PO TID PRN (Reason: anxiety) omeprazole 40 mg capsule,delayed release(DR/EC) 40 mg PO DAILY levothyroxine 75 mcg tablet 75 mcg PO DAILY potassium chloride 20 mEq tablet,ER particles/crystals 20 meq PO DAILY ropinirole 2 mg tablet 2 mg PO TID warfarin 5 mg tablet 5 mg PO DAILY Patient Comments: 1.5 M,W,F, 1 tab other days nitroglycerin 0.4 mg tablet, sublingual 0.4 mg sublingual Q5M PRN (Reason: chest pain) baclofen 5 mg tablet 5 mg PO TID PRN (Reason: back spasm or pain) amiodarone [Pacerone] 200 mg Tablet 200 mg PO QD Qty: 30 0RF amoxicillin-pot clavulanate 875-125 mg tablet 1 tab PO Q12H Qty: 20 0RF doxycycline hyclate 100 mg tablet 100 mg PO BID 7 Days Qty: 14 0RF Print Language: Malaysian Instructions: Heat Exhaustion (ED), Migraine Headache (ED), Anxiety (ED) Referrals: PARRIS GOETZ [Primary Care Provider] - 1 week
[2024-02-17] MEDS: 0.9 % SODIUM CHLORIDE 1,000 ML 1000 ML IV (23:21)
[2024-02-17] MEDS: ACETAMINOPHEN 325 MG TABLET 650 MG PO (23:21)
[2024-02-17] MEDS: LORAZEPAM 0.5 MG TABLET PO (23:21)
[2024-02-17 23:27] LABS: Basophils Absolute Auto 0.2 10^3/uL (0.0-0.1); Basophils Percent Auto 1.7 % (0.2-2.0); Eosinophils Absolute Auto 0.1 10^3/uL (0.0-0.7); Eosinophils Percent Auto 0.9 % (0.9-7.0); Hematocrit 34.1 % (36.0-48.0); Hemoglobin 9.6 g/dL (12.0-16.0); Immature Granulocytes Abs Auto 0.02 10^3/uL (0.00-0.03); Immature Granulocytes Pct Auto 0.2 % (0.0-0.5); Lymphocytes Absolute Auto 1.8 10^3/uL (1.2-3.8); Lymphocytes Percent Auto 20.1 % (20.5-60.0); Mean Corpuscular HGB Conc 28.2 g/dL (29.9-35.2); Mean Corpuscular Hemoglobin 19.1 pg (26.7-34.0); Mean Corpuscular Volume 67.8 fL (81.0-99.0); Mean Platelet Volume 10.5 fL (9.5-13.5); Monocytes Percent Auto 10.9 % (1.7-12.0); Neutrophils Absolute Auto 5.9 10^3/uL (1.4-6.5); Neutrophils Percent Auto 66.2 % (43.0-75.0); Platelet Count 289 10^3/uL (150-450); Red Blood Count 5.03 10^6/uL (4.20-5.40); Red Cell Distribution Width 21.2 % (11.0-15.0); White Blood Count 8.9 10^3/uL (4.0-11.0)
[2024-02-17 23:38] LABS: INR 2.68; Prothrombin Time 25.8 sec (9.0-11.6)
[2024-02-17 23:48] LABS: Alanine Aminotransferase 26 U/L (14-59); Albumin Globulin Ratio 0.8; Albumin Level 3.6 g/dL (3.4-5.0); Alkaline Phosphatase 347 U/L (46-116); Anion Gap 12.8; Aspartate Amino Transferase 43 U/L (15-37); BUN Creatinine Ratio 18.6; Bilirubin Total 0.8 mg/dL (0.2-1.0); Calcium 8.9 mg/dL (8.5-10.1); Carbon Dioxide 24.8 mmol/L (21.0-32.0); Chloride 100 mmol/L (98-107); Estimated GFR (African America >60 (>=60); Estimated GFR (Non-African Ame 50 (>=60); Globulin 4.3 g/dL; Glucose 112 mg/dL (74-106); Potassium 3.6 mmol/L (3.5-5.1); Sodium 134 mmol/L (136-145); Total Protein 7.9 g/dL (6.4-8.2); Troponin I High Sensitivity 24.6 pg/mL (4.0-51.3)
[2024-02-18] VITALS: BP 117/61
[2024-02-18 00:04] VITALS: PULSE 80; O2SAT 97
--- NOTE | 2024-02-18 00:05 | XR_ITS ---
The [address] [address] Patient Name: HORACIO LOMBARDI MRN: [id number] date: 1970 Sex: F Assigned Patient Location: ER Current Patient Location: ER Accession/Order Number: [id number] Exam Date: 02/18/2024 00:15 Report Date: 02/18/2024 01:23 At the request of: HAROON MARKER Procedure: XR chest 1V EXAM: XR chest 1V HISTORY: weakness COMPARISON: Chest radiograph dated 05/08/2023. TECHNIQUE: One view of the chest was obtained. FINDINGS: There are postsurgical changes of the chest with median sternotomy wires, a left chest cardiac pacemaker device, and a prosthetic aortic valve in place. The cardiac silhouette is enlarged though stable in size. There is no significant pneumothorax or pleural effusion. There is interstitial prominence. There are right basilar airspace opacities. No acute osseous abnormality is seen. XR/XR chest 1V IMPRESSION: 1. Stable enlarged cardiac silhouette with suspected interstitial edema, and right basilar opacities that could represent atelectasis, aspiration changes, and/or pneumonia. Electronically authenticated by: Pascual DIAZ Date: 02/18/2024 01:23
[2024-02-18 00:10] VITALS: PULSE 80; O2SAT 97
[2024-02-18 00:19] VITALS: PULSE 80; O2SAT 98
[2024-02-18 00:31] VITALS: BP 147/80
[2024-02-18 01:01] VITALS: BP 130/84
== END 2024-02-18 02:12 | disposition home or self-care (01) ==
PROVIDERS: Emergency Provider Emergency Medicine; PCP Nurse Practitioner Family
DX: R51.9 Headache, unspecified (principal); F41.1 Generalized anxiety disorder; T67.5XXA Heat exhaustion, unspecified, initial encounter; X30.XXXA Exposure to excessive natural heat, initial encounter; I51.9 Heart disease, unspecified; I25.2 Old myocardial infarction; Z95.810 Presence of automatic (implantable) cardiac defibrillator; Z79.01 Long term (current) use of anticoagulants; Z87.891 Personal history of nicotine dependence; Z79.899 Other long term (current) drug therapy
CPT/HCPCS: 36415; 71045; 80053; 84484; 85025; 85610; 93005; 99285

== ENCOUNTER 2024-02-23 14:44 | Outpatient (OUT) | payer MEDICARE, MEDICAID, SELFPAY ==
--- NOTE | 2024-02-23 14:56 | XR_ITS ---
The [address] [address] Patient Name: HORACIO LOMBARDI MRN: [id number] date: 1970 Sex: F Assigned Patient Location: [facility] Current Patient Location: Accession/Order Number: [id number] Exam Date: 02/23/2024 15:05 Report Date: 02/24/2024 07:22 At the request of: PARRIS GOETZ Procedure: XR shoulder RT min 2V PROCEDURE: XR shoulder RT min 2V, XR humerus RT COMPARISON: CT 05/07/2023., 07/28/2023 HISTORY: pain of right shoulder FINDINGS: BONES:Contour deformity of the right humeral head and neck stable from prior chest x-rays consistent with chronic healed fracture. Calcific density identified superior to the humeral head I favor calcific tendinitis. No definite acute fracture or dislocation SOFT TISSUES:Negative. No visible soft tissue swelling. EFFUSION:None visible. OTHER: Negative. XR/XR shoulder RT min 2V IMPRESSION: Remote right humeral head and neck fracture No acute fracture or dislocation of the shoulder or humerus Electronically authenticated by: JAYLA HAMMONDS Date: 02/24/2024 07:22
--- NOTE | 2024-02-23 14:56 | XR_ITS ---
The [address] [address] Patient Name: HORACIO LOMBARDI MRN: [id number] date: 1970 Sex: F Assigned Patient Location: [facility] Current Patient Location: Accession/Order Number: [id number] Exam Date: 02/23/2024 15:05 Report Date: 02/24/2024 07:22 At the request of: PARRIS GOETZ Procedure: XR humerus RT PROCEDURE: XR shoulder RT min 2V, XR humerus RT COMPARISON: CT 05/07/2023., 07/28/2023 HISTORY: pain of right shoulder FINDINGS: BONES:Contour deformity of the right humeral head and neck stable from prior chest x-rays consistent with chronic healed fracture. Calcific density identified superior to the humeral head I favor calcific tendinitis. No definite acute fracture or dislocation SOFT TISSUES:Negative. No visible soft tissue swelling. EFFUSION:None visible. OTHER: Negative. XR/XR humerus RT IMPRESSION: Remote right humeral head and neck fracture No acute fracture or dislocation of the shoulder or humerus Electronically authenticated by: JAYLA HAMMONDS Date: 02/24/2024 07:22
== END 2024-02-23 14:45 | disposition home or self-care (01) ==
PROVIDERS: PCP Nurse Practitioner Family; Visit Provider Nurse Practitioner Family
DX: M25.511 Pain in right shoulder (principal); M79.601 Pain in right arm; S42.294D Other nondisplaced fracture of upper end of right humerus, subsequent encounter for fracture with routine healing
CPT/HCPCS: 73030; 73060

== ENCOUNTER 2024-02-28 00:31 | Outpatient (RCR) | payer MEDICARE, MEDICAID, SELFPAY | END 2024-03-29 23:59 | disposition home or self-care (01) | LOC: MM 00:31 | PROVIDERS: PCP Nurse Practitioner Family; Visit Provider Internal Medicine | DX: Z51.81 Encounter for therapeutic drug level monitoring (principal); Z79.01 Long term (current) use of anticoagulants; I48.0 Paroxysmal atrial fibrillation ==

== ENCOUNTER 2024-04-19 04:09 | Emergency (ER) | payer MEDICARE, MEDICAID, SELFPAY ==
[2024-04-19 04:10] VITALS: BP 140/84; PULSE 80; TEMP 36.5; O2SAT 100; BMI 29.3
--- OUTSIDE RECORDS SUMMARY | 2024-04-19 04:23 | XMS_ITS | CCD ---
Author Organization [facility] CliniSyga Care Team Providers Care Technical Account Executive Name Role Phone MAYRA, MARGARETH Admitting Unavailable MAYRA, MARGARETH Attending Unavailable GAVIN, ROBE Primary Care Unavailable MAYRA, MARGARETH Admitting Unavailable MAYRA, MARGARETH Attending Unavailable GAVIN, ROBE Primary Care Unavailable MAYRA, MARGARETH Admitting Unavailable MAYRA, MARGARETH Attending Unavailable GAVIN, ROBE Primary Care Unavailable SETH VASQUEZ Attending UnavailROBE Marion Primary Care Unavailable JAMEEL VALENZUELA Attending UnavailROBE Espinal Primary Care Unavailable MAYRA, MARGARETH Admitting Unavailable MAYRA, MARGARETH Attending Unavailable ROBE ALONSO Primary Care Unavailable Darian Smiley Attending Provider Robe Alonso Primary Care Provider Robe Alonso Admit Provider Robe Alonso Attending Provider [phone] Darian Smiley Attending Provider Robe Alonso Primary Care Provider Robe Alonso Admit Provider Robe Alonso Attending Provider Unavailable Unavailable PROVIDER, UNKNOWN Attending Unavailable PROVIDER, UNKNOWN Admitting Unavailable PATIENT, SELF Referring Unavailable None, No PCP Unavailable Unavailable Robe Alonso Primary Care Provider Nadir Hoskins Unavailable [phone] Mayra, Margareth J Unavailable Dustin CLAY, Violeta Unavailable Dustin CLAY, Violeta Unavailable Jeane Dykes Unavailable DO Darian Smiley Attending Provider [phone] MD Robe Alonso Primary Care Provider MD Robe Alonso Attending Provider MD Robe Alonso Referring Provider DO Hira Lay Emergency Provider Radhaori MD Ken Segovia Admit Provider [phone] MD Ken Rizo Attending Provider [phone] Robe Alonso Primary Care Provider [phone] Nadir Hoskins Unavailable Margareth Nunez Unavailable Violeta Chan MD Unavailable Carrillo Chan MDnda Unavailable DO Darian Smiley Attending Provider Crystal, Roy Unavailable Robe Alonso Primary Care Provider [phone] Nadir Hoskins Unavailable Margareth Nunez MD Unavailable Robe Alonso Primary Care Provider Nadir Hoskins Unavailable [phone] Margareth Nunez MD Unavailable Dustin CLAY Violeta Unavailable Dustin CLAY Violeta Unavailable [phone] Cuevas DMD, Anju Unavailable FAWWAD, ROY [...] Admitting Unavailable FAWWAD, ROY H Attending Unavailable MISDR RAFA Bolanos Primary Care Unavailable FAWWAD, ROY H Primary Care Unavailable FAWWAD, ROY H Attending Unavailable FAWWAD, ROY H Admitting Unavailable FAWWAD, ROY H Attending Unavailable FAWWAD, ROY H Primary Care Unavailable FAWWAD, ROY H Admitting Unavailable FAWWAD, ROY H Primary Care Unavailable KRYSTYNA SANDRA Attending Unavailable KATHARINA Mcneil, KRYSTYNA Admitting Unavailable NEWMONROE, FAUSTO Consulting Unavailable KRYSTYNA SANDRA Consulting Unavailable FAWWAD, ROY H Primary Care Unavailable JEAN CLAUDE GUZMAN Attending Unavailable DR JC BRAVO R Consulting Unavailable JEAN CLAUDE GUZMAN Admitting Unavailable JEAN CLAUDE GUZMAN Consulting Unavailable Tenzin Alejo Unavailable CORIE, DR Juan Miguel Gamez Consulting Unavailable CORIE, DR Juan Miguel Gamez Attending Unavailable CORIE, DR Juan Miguel Gamez [facility] Primary Care Unavailable SHELLY, DR JC Car Consulting Unavailable Gato DO Nadir Ann Unavailable Dustin CLAY, Violeta Unavailable Dustin CLAY, Violeta Unavailable Amanda Grace Unavailable MD Margareth Nunez Attending Provider PETE Grace Primary Care Provider Crystal CLAY, Primary Care Provider [phone] Bianca FREEMAN-WOOD GLUER, Jameel E Unavailable Margareth Nunez MD Unavailable Liam Hyman MD Primary Care Provider YESSI MILLER Referring Unavailable LIAM HYMAN Primary Care Unavailable MARGARETH NUNEZ Referring Unavailable [facility] Primary Care Unavailable MARGARETH NUNEZ Admitting Unavailable MARGARETH NUNEZ Attending Unavailable [facility] Primary Care Unavailable Mayra Chang, Margareth Referring Unavailable Mayra Chang, Margareth Attending Unavailable Arjun EPPS Attending Unavailable Arjun EPPS Attending Unavailable Arjun EPPS Attending Unavailable Unavailable Primary Care Provider UnavailLiam Xiong MD Primary Care Provider TRACEY, SWAPNIL Referring Unavailable LIAM HYMAN Primary Care Unavailable TRACEY, SWAPNIL Referring Unavailable LIAM HYMAN Primary Care Unavailable TRACEY, SWAPNIL Admitting Unavailable TRACEY, SWAPNIL Attending Unavailable VINCENT GARZA Consulting UnavailAJAY Negrete Consulting Unavailable LIAM HYMAN Primary Care Unavailable PEDRO BLAS Referring Unavailable MD Tanner Mae Jr Emergency Provider MD Karen Garner Primary Care Provider [phone] DO Pedro Melo Emergency Provider [phone] PETE Grace Primary Care Provider MD Kendrick Jorgensen Admit Provider MD Kendrick Jorgensen Attending Provider [phone] MD Patrica Mcmahon Attending Provider [phone] JAMEEL VALENZUELA Attending Unavaila SHAIKH Emmanuel Primary Care Unavailable Karen Garner Primary Care Unavailable Tanner Mae Jr Admitting Unavailable Tanner Mae Jr Attending Unavailable Amanda Grace Primary Care Unavailable Margareth Nunez Admitting Unavailable Margareth Nunez Attending Unavailable Kendrick Jorgensen Admitting Unavailable Patrica Mcmahon Attending Unavailable Karen Perkins Consulting Unavailable Amanda Grace Primary Care Unavailable Megan Hoskins Consulting Unavailable Sherly Brewer Consulting Unavailable Nadir Mcfarland Consulting Unavail able Perla Urrutia Consulting Unavailable Seth Vences Consulting Unavailab Inna Rust Consulting Unavailable Shweta Raymundo Consulting Unavailable Nicolás Pressley Consulting Unavailab Cesario Vazquez Consulting Unavailable Arely Burris Consulting Unavailable Unavailable Unavailable Unavailable Allergies Allergy Classification Reported Allergen(s) Allergy Type Date of Onset Reaction(s) Facility Adhesive Tape (1 source) Adhesive Tape Substance Allergy 11-24-19 21 Unknown Reaction [facility] Ondansetron (1 source) Ondansetron Drug Allergy 11-24-19 21 Agitated [facility] Opioid Agonists (2 sources) fentaNYL Drug Allergy 11-24-19 21 Palpitations, Unknown Reaction [facility] (20 sources) Adhesive Tape; Translations: [adhesive tape] Propensity to adverse reactions 08-16-20 20 Unknown Reaction, Redness of Skin [facility] (20 sources) fentaNYL; Translations: [fentanyl] Drug Allergy 09-21-19 20 Headache, Other [facility] Repository (20 sources) Morphine; Translations: [MORPHINE] Drug Allergy 04-26-20 12 Vomiting, GI intolerance, Nausea/vomiting , Nausea And Vomiting [facility] (19 sources) Ondansetron; Translations: [ONDANSETRON] Drug Allergy 09-21-[address] [facility] Repository (20 sources) erythromycin base; Translations: [Erythromycin Base] Allergy to substance 07-08-20 04 Other: See Comments [facility] (20 sources) Erythromycin; Translations: [erythromycin] Drug Allergy 06-05-20 02 Nausea Only, Unknown, [facility] (20 sources) levoFLOXacin; Translations: [Levaquin] Drug Allergy 08-31-19 24 Other, Palpitations [facility] [employer] 250 DO Work Phone: (20 sources) Ondansetron; Translations: [Zofran] Drug Allergy Irritability [facility] Repository (20 sources) varenicline; Translations: [Chantix TABS] Drug Allergy 08-31-19 24 Other, Unknown [facility] [employer] 250 DO Work Phone: (20 sources) Adhesive Tape Propensity to adverse reactions to substance 07-08-20 12 Rash [facility] (20 sources) Ondansetron Drug Allergy 10-13-19 19 Intolerance, Other [facility] (20 sources) Latex Drug allergy 11-11-19 24 Unknown, Hives [facility] (5 sources) Adhesive Tape-Silicones; Translations: [ADHESIVE TAPE-SILICONES] Drug Allergy 08-31-19 24 Other [facility] (2 sources) levoFLOXacin; Translations: [LEVOFLOXACIN] Drug Allergy 08-31-19 24 [facility] Repository (2 sources) Ondansetron; Translations: [ONDANSETRON HCL] Drug Allergy 08-31-19 24 [facility] Repository (2 sources) varenicline; Translations: [VARENICLINE] Drug Allergy 08-31-19 24 [facility] (3 sources) Azithromycin Drug Allergy 10-05-19 24 [facility] (1 source) Latex Drug allergy (disorder) 03-29-20 24 [facility] Repository Medications Current Medications Medication Drug Class(es) Dates Sig (Normalized) Sig (Original) Acetaminophen (17 sources) Start: 10-06-2023 acetaminophen (TYLENOL) tablet 650 mg Start: 10-05-2023 End: 10-05-2023 acetaminophen (TYLENOL) tabl et 1,000 mg Start: 09-29-2023 take 1 tablet by augusto th every four hours as needed acetaminophen (Tylenol) tablet 650 mg Start: 06-07-2020 End: 11-23-2020 take 2 tablets by mouth every four hours Acetaminophen (Tylenol) 325 mg tablet Discontinued 650 MG PO Q4H 1 June 07, 2020 12:00am November 23, 2020 4:58pm acetaminophen 300 mg / butalbital 50 mg / caffeine 40 mg oral capsule (20 sources) Barbiturate, Central Nervous System Stimulant, Methylxanthine Start: 02-17-2024 take 1 capsule by mouth every four hours Rmzowjodqn-Rtfrlcamgueyj-Unqa (Fioricet) 50-300-40 mg capsule Active 1 CAP PO Every 4 hours February 17, 2024 12:15pm Start: 10-07-2023 End: 10-07-2023 take 1 tablet by mouth every four hours as needed for headache ymowcmoeof-wtysjbdbahskw-xfyamkya (CHIDI CET, ESGIC) 50-325-40 MG per tablet Take 1 tablet by mouth every 4 hours as needed for Headaches 30 tablet 0 10/07/2023 Active Start: 10-06-2023 take 1 capsule by mouth every four hours as needed 1 capsule, Oral, EVERY 4 HOURS PRN, Star ting on Wed10/06/23 at 0034, Until Discontinued, Headaches Maximum dose of acetaminophen is 4000 mg from all sources in 24 hours. Start: 07-19-2020 Butalbital-Adele taminophen-Caff (Fioricet) 50-300-40 mg capsule Active 1 CAP PO As Directed July 19, 2020 7:56am Start: 07-19-2020 End: 02-17-2024 take 1 capsule by mouth twice daily Jdrdiezexv-Lwxvbjurhhddc-Knou (Fioricet) 50-300-40 mg capsule Discontinued 1 CAP PO Twice daily July 19, 2020 1:00am February 17, 2024 12:19pm Start: 06-07-2020 End: 06-15-2020 take 1 tablet by mouth every eight hours Pifpxnndgc-Unertmakymjwf-Bqpi Discontinu ed 1 TAB PO Q8H June 07, 2020 12:00am June 15, 2020 11:49am Start: 04-26-2020 End: 06-07-2020 take 1 capsule by mouth every eight hours as needed Fsebrmlwgc-Gxdfncxfyuytr-Qkyl (Fioricet) 50-300-40 mg capsule Discontinued 1 CAP PO Q8H April 26, 2020 12:00am June 07, 2020 6:06pm TK ONE C PO Q 8 H PRN Start: 09-01-2019 End: 04-26-2020 take 1 tablet by mouth three times daily Njwdwvbrrt-Heonurwwreeth-Gyps Discontinu ed 1 TAB PO Three times daily 0 September 01, 2019 1:00am April 26, 2020 2:48pm [id number] 200 actuat albuterol 0.09 mg/actuat metered dose inhaler (16 sources) beta2-Adrenergic Agonist Start: 02-17-2024 take 1 puff(s) by inhalation every four hours Albuterol Sulfate Active 1 PUFF INHALATION Every 4 hours February 17, 2024 12:00am Start: 10-06-2023 take 1 puff(s) by in halation every four hours as needed 1 puff, Inhalation, EVERY 4 HOURS PRN, Starting on Wed10/06/23 at 0033, Until Discontinued, Wheezing Initiate RT Bronchodilator Protocol: Yes - Inpatient Protocol Start: 07-20-2023 albuterol 90 m cg/actuation inhaler take 1 puff(s) by mo ut every [...] Amiodarone Discontinued 400 MG PO Every morning November 16, 2021 12:00am January 24, 2024 [...] take 1 tablet by mouth once daily 24 hr isosorbide mononitrate 30 mg extended release oral tablet (20 sources) Nitrate Vasodilator Start: 11-23-19 take 30 mg by mouth once daily Isosorbide Mononitrate Active 30 MG PO Daily November 22, 2021 12:00am levothyroxine sodium 0.075 mg oral tablet (20 sources) l-Thyroxine Start: 11-11-19 End: 02-16-20 take 75 ug by mouth once daily Levothyroxine Active 75 MCG PO Daily February 16, 2024 4:39pm Start: 07-20-2023 take 75 ug by mouth once daily 75 mcg, Oral, DAILY, First dose on Wed10/06/23 at 0700, Until Discontinued Tube feeding (TF) interaction, obtain physician order to manage, recommend holding TF for 30 minutes before and after dose. take 1 tablet by auugsto th once daily in the morning Levothyroxine Sodium 75 MCG 1 tablet in the morning on an empty stomach Orally Once a day for 90 days Active LORazepam 0.5 mg oral tablet (20 sources) Benzodiazepine Start: 03-09-2024 End: 03-30-2024 take 0.5 mg by mouth twice daily Lorazepam Active 0.5 MG PO Twice daily March 30, 2024 12:00am Start: 11-12-2021 End: 03-09-2024 take 1 tablet by mouth three times daily Lorazepam (Ativan) 0.5 mg tablet Discontinued 0.5 MG PO Three times daily February 18, 2024 11:18am February 22, 2024 11:54am 50 ml magnesium sulfate 40 mg/ml injection (1 source) Start: 10-06-2023 2,000 mg, IntraVENous, at 25 mL/hr, Administer over 2 Hours, PRN, Other, Magnesium Replacement, Starting on Wed10/06/23 at 0008 [facility] Replacement Action 1.4-1.6 mg/dL 2,000 mg Total Dose Given as 1,000 mg IVPB x 2 doses or 2,000 mg IVPB x 1 dose &nbs p; &nbsp ;1.0-1.3 mg/dL 4,000 mg Total Dose &nbs p; Given as 1,000 mg IVPB x 4 doses or 2,000 mg IVPB x 2 doses Less than 1.0 mg/dL CALL PHYSICIAN and give &nbs p; 4,000 mg Total Dose &nbs p; Given as 1,000 mg IVPB x 4 doses or 2,000 mg IVPB x 2 doses Infuse at 1,000 mg/hr Repeat Mag level next AM Protocol not for use in Patients with CrCl less than 30ml/min meclizine hydrochlor wilma 25 mg oral tablet (2 sources) A n t i e m e t i c t a k e 1 t a b l e t b y m o u t h t h r e e t i m e s d a i l y a s n e e d e d meclizine (ANTIVERT) 25 MG tablet Take 2 5 mg by mouth 3 times daily as needed. 0 Active 24 hr memantine hydrochlor wilma 28 mg extended release oral capsule (20 sources) N - m e t h y l - D - a s p a r t a t e R e c e p t o r A n t a g o n i s t Start: 02-17-2024 t a k e 2 8 m g b y m o u t h o n c e d a i l y Memantine Active 28 MG PO Daily January 12:00am Start: 09-07-2019 End: 10-14-2021 take 1 capsule [...] 09, 2018 12:00am April 26, 2020 2:50pm Multivitamin Adult - (20 sources) take 1 tablet by augusto th once daily Multivitamin Adult - 1 tablet Orally Once a day centrum 50 and over Active take 1 tablet by mouth once jing y Multivitamin Adult - 1 tablet Orally Once a day Not-Taking take 1 tablet by mouth once jing y Multivitamin Adult - 1 tablet Orally Once a day Active Multivitamin preparation (18 sources) Start: 02-17-2024 take 1 tablet by mouth once daily Multivitamin Active 1 TAB PO Daily February 17, 2024 12:00am Start: 04-26-2020 End: 06-07-2020 take 1 tablet [...] 26, 2020 12:00am June 07, 2020 6:06pm Multivitamin With Folic Acid (Thera) 400 mcg Tablet (14 sources) Start: 06-07-2020 take 1 tablet by [...] 07, 2020 12:00am November 13, 2021 11:40am nitroglycerin 0.4 mg sublingual tablet (20 sources) Nitrate Vasodilator Start: 02-17-2024 Nitroglyce rin Active 0.4 MG SUBLINGUAL As Directed February 17, 2024 12:00am Start: 05-09-2018 End: 10-14-2021 Nitroglycerin Discontinued 0 .4 MG SUBLINGUAL Every 5 minutes x 3 doses June 07, 2020 12:00am October 14, 2021 1:15pm Nitroglycerin 0. 4 MG as directed Sublingual Active perflutren lipid microsphere s 1.3 mL in [...] NaCl (PF) 0.9% 10 mL injection (DEFINITY) potassium chloride 10 meq extended release oral capsule (20 sources) Start: 02-17-2024 End: 02-18-2024 take 10 mEq by mouth twice daily Potassium Chloride Active 10 MEQ PO Twice daily 180 90 February 18, 2024 10:59am Start: 10-12-2023 take 1 tablet by augusto th once daily potassium chloride (KLOR-CON M) 20 [...] 0 Active take 1 capsule by mo [facility] every twelve hours Potassium Chloride ER 10 MEQ 1 capsule with food Orally Twice a day Active Potassium Chlori de ER 20 MEQ Oral Tablet Extended Release TAKE 2 TALBET TWICE DAILY X 2 DAYS 12/30 AND 12/31/2021, THEN 2 TABLETS DAILY Quantity: 2 Refills: 0 Ordered: 30-Dec-2021 Bianca SHOE STITCHER-WOOD GLUER, Jameel Active take 1 tablet by augusto once daily Potassium Chloride ER 20 MEQ Oral Tablet Extended Release take 1 talet once daily Quantity: 0 Refills: 0 Ordered: 05-Dec-2021 DO Active promethazine (PHENERGAN) 12.5 mg in sodium chloride 0.9 % 50 mL IVPB (1 source) Start: 10-06-2023 promethazine (PHENERGAN) 12.5 mg in sodium chloride 0.9 % 50 mL IVPB rOPINIRole 0.25 mg oral tablet (20 sources) Nonergot Dopamine Agonist Start: 02-17-2024 End: 02-23-2024 take 1 tablet by mouth at dinner, then take 2 tablets by mouth at bedtime Ropinirole Active 0 PO As Directed 270 90 February 23, 2024 2:35pm 1 tablet at dinner and 2 tablets at bedtime orally as directed; Start: 10-07-2023 take 1 tablet by augusto th once daily rOPINIRole (REQUIP) 2 MG tablet [...] Discontinued 2 MG PO As Directed November 25, 2020 12:00am October 14, 2021 12:05pm Take 1 at supper with 2 at bedtime. Start: 06-15-2020 End: 02-17-2024 take 1 tablet by mouth once daily at bedtime, then take 2 tablets by mouth at bedtime Ropinirole Discontinued 0.75 MG PO Daily at bedtime June 15, 2020 12:00am February 17, 2024 12:19pm 1 TABLET AT DINNER AND 2 TABLETS [...] 2020 3:22pm take 3 tablets by mo [facility] once daily rOPINIRole (REQUIP) 0.25 MG tablet [...] oral tablet (20 sources) Loop Diuretic Start: 03-30-2024 take 40 mg by mouth once daily Torsemide Active 40 MG PO Daily March 30, 2024 12:00am Start: 09-14-2023 torsemide (Dem adex) 20 mg tablet Indications: Chronic systolic congestive heart failure (CMS/HCC) , Biventricular implantable cardioverter-defibrillator (ICD) in situ , Ischemic cardiomyopathy Take two tablets daily. 60 tablet 09/14/2023 Active Start: 09-02-2023 torsemide (Dem adex) 20 mg tablet Indications: Biventricular implantable cardioverter-defibrillator (ICD) in situ , Chronic systolic congestive heart failure (CMS/HCC) , Ischemic cardiomyopathy Take one tablet twice a day x 3 days then one tablet daily. 30 tablet 09/02/2023 Active Start: 10-13-2021 End: 11-11-2023 take [...] on above: Take 2 tablets by mo uth once daily. traZODone hydrochloride 50 mg oral tablet (20 sources) Serotonin Reuptake Inhibitor Start: 2 End: take 50 mg by mouth once daily at bedtime Trazodone Active 50 MG PO Daily at bedtime March 30, 2024 12:00am Start: 10-14-2021 End: 10-17-2021 take 200 [...] 2020 2:54pm take 2 tablets by mo ut once daily traZODone (DESYREL) 100 MG tablet Take 200 mg by mouth nightly. 0 Active take 2 tablets by mo ut every twenty-four hours venlafaxine 75 mg oral tablet (2 sources) Serotonin and Norepinephrine Reuptake Inhibitor take 1 tablet by mouth three times daily venlafaxine (EFFEXOR) 75 MG tablet Take 75 mg by mouth 3 times daily. 0 Active warfarin sodium 5 mg oral tablet (20 sources) Vitamin K Antagonist Start: Warfarin Active 0 PO .COMPLEX March 30, 2024 12:00am orally; 5mg MWF, 7.5mg TTHSASU Start: 02-17-2024 Warfarin Activ e 0 PO .COMPLEX February 17, 2024 12:00am dose change Start: 10-06-2023 End: 10-08-2023 warfarin (COUMADIN) tablet 7 .5 mg Start: 10-01-2023 take 1 tablet by augusto th once daily warfarin (Coumadin) 5 mg tablet [...] days. 3mg dose Jun, Active Start: 11-13-2021 End: 02-17-2024 Warfarin (Jantoven) 5 mg tab let Discontinued 7.5 MG PO SUTUTHSA November 13, 2021 12:00am February 17, 2024 12:18pm Start: 10-13-2021 End: 10-14-2021 Warfarin Discontinued 2.5 [...] directed otherwise by Coumadin clinic. Start: 11-23-2020 End: 02-17-2024 Warfarin (Jantoven) 5 mg tab let Discontinued 5 MG PO Q48H November 23, 2020 12:00am February 17, 2024 12:18pm Start: 07-19-2020 End: 08-17-2020 Warfarin Discontinued 0 [...] 5 MG Oral Tablet as directed per [facility] Coumadin clinic Quantity: 0 Refills: 0 Ordered: 31-Dec-2021 DO Active Warfarin 2mg 2 m g as directed orally Active Warfarin Sodium 5 MG Oral Tablet as directed per [facility] Coumadin clinic Quantity: 0 Refills: 0 Ordered: [...] 1 tablet by mouth once daily Hydrocodone-Acetaminophen ([place]) 5-325 mg Tablet Discontinued 1 TAB PO Daily June 05, 2020 12:00am June 07, 2020 6:06pm amoxicillin 500 mg / clavulanate 125 mg oral tablet (14 sources) Penicillin-class Antibacterial Start: 09-01-2019 End: 04-26-2020 take 1 tablet by mouth three times daily Amoxicillin-Pot Clavulanate (Augmentin) 500-125 mg tablet Discontinued 1 TAB PO Three times daily September 01, 2019 1:00am April 26, 2020 2:47pm atorvastatin 80 mg oral tablet (20 sources) HMG-CoA Reductase Inhibitor Start: 07-18-2012 End: 02-16-2024 take 80 mg by mouth once daily Atorvastatin Discontinued 80 MG PO Daily June 07, 2020 12:00am July 19, 2020 8:56am Comment on above: Take 1 tablet by augusto once daily. baclofen 5 mg oral tablet (6 sources) gamma-Aminobutyric Acid-ergic Agonist Start: 04-16-2022 take 1 tablet by mouth three times daily Baclofen 5 MG Oral Tablet TAKE 1 TABLET 3 times daily Quantity: 0 Refills: 0 Ordered: 16-Apr-2022 DO Start : 16-Apr-2022 Active benzonatate 100 mg oral capsule (14 sources) Non-narcotic Antitussive Start: 06-15-2020 End: 07-19-2020 take 200 mg by mouth three times daily Benzonatate Discontinued 200 MG PO Three times daily 0 June 15, 2020 12:00am July 19, 2020 8:53am busPIRone hydrochloride 15 mg oral tablet (14 sources) Start: 04-26-2020 End: 04-26-2020 Buspirone Discontinued [...] IVPB (mini-bag) cephalexin 500 mg oral capsule (11 sources) Cephalosporin Antibacterial Start: 11-25-2020 End: 10-14-2021 [...] the day and 2 tablets at bedtime cyclobenzaprine hydrochloride 10 mg oral tablet (7 sources) Muscle Relaxant Start: 01-24-20 End: 02-17-20 take 10 mg by mouth every eight hours Cyclobenzaprine Discontinued 10 MG PO Every 8 hours January 24, 2024 12:00am February 17, 2024 12:19pm take 1 tablet by augusto th twice daily as needed cyclobenzaprine (FLEXERIL) 10 MG tablet Take 10 mg by mouth 2 times daily as needed. 0 Active digoxin 0.125 mg oral tablet (20 sources) Cardiac Glycoside Start: 11-25-2020 End: 10-17-2021 take 125 ug by mouth once daily Digoxin Discontinued 125 MCG PO Daily November 25, 2020 12:00am October 17, 2021 1:48pm take 1 tablet by mouth once jing y Digoxin 0.125 mg one tab orally daily Not-Taking doxycycline hyclate 100 mg oral capsule (11 sources) Tetracycline-class Drug Start: 11-11-2023 End: 02-17-2024 take 100 mg by mouth twice daily Doxycycline Hyclate Discontinued 100 MG PO Twice daily 14 January 24, 2024 12:00am February 17, 2024 12:19pm 0.6 ml enoxaparin sodium 100 mg/ml prefilled syringe (20 sources) Low Molecular Weight Heparin Start: 01-24-2024 End: 02-17-2024 Enoxaparin (Lovenox) 60 mg/0.6 mL syringe Discontinued 60 MG SUBCUT Every 12 hours 6 January 24, 2024 12:00am February 17, 2024 12:19pm Start: 10-06-2023 enoxaparin (LO VENOX) 80 MG/0.8ML Inject 0.7 mLs into the skin 2 times daily 14 each 0 10/06/2023 Active Start: 10-06-2023 enoxaparin (LO VENOX) injection 70 mg Start: 06-15-2020 End: 06-15-2020 inject 80 mg by subcutaneous injection every twelve hours Enoxaparin Discontinued 80 MG SUBCUT Q12H June 15, 2020 12:00am June 15, 2020 7:37pm escitalopram 20 mg oral tablet (20 sources) [...] esomeprazole 40 mg delayed release oral capsule (14 sources) Proton Pump Inhibitor Start: 05-09-2018 End: 09-01-2019 take 1 capsule by mouth twice daily Esomeprazole Magnesium (Nexium) 40 mg Capsule,Delayed Release(Dr/Ec) Discontinued 40 MG PO Twice daily May 09, 2018 12:00am September 01, 2019 7:52pm ferrous sulfate 324 mg delayed release oral tablet (20 sources) Start: 02-17-2024 End: 03-30-2024 take 324 mg by mouth twice daily Ferrous Sulfate Discontinued 324 MG PO Twice daily February 17, 2024 12:00am March 30, 2024 2:49am Start: 11-25-2020 End: 10-14-2021 take 324 mg by mouth twice daily Ferrous Sulfate Discontinued 324 MG PO Twice daily 60 November 25, 2020 12:00am October 14, 2021 [...] 28, 2020 12:00am June 05, 2020 1:33am FLUoxetine 40 mg oral capsule (18 sources) Serotonin Reuptake Inhibitor Start: 11-11-2023 End: 03-30-2024 take 40 mg by mouth once daily Fluoxetine Discontinued 40 MG PO Daily November 11, 2023 12:00am March 30, 2024 2:50am Start: 10-06-2023 take 40 mg by mouth [...] 4 capsules by mouth daily 0 Active furosemide 40 mg oral tablet (20 sources) Loop Diuretic Start: 11-11-2023 End: 01-24-2024 [...] 2020 2:56pm take 1 tablet by augusto every eight hours Comment on above: Take 1 tablet by augusto th twice daily. 24 hr metoprolol succinate 100 mg extended release oral tablet (20 sources) beta-Adrenergic Edward Start: 01-26-2023 take 1 tablet by mouth every twenty-four hours at bedtime Metoprolol Succinate ER 100 MG Oral Tablet Extended Release 24 Hour TAKE 1 TABLET BY MOUTH AT BEDTIME *NO MORE REFILLS, KEEP PENDING VISIT 03/21* Quantity: 30 Refills: 10 Ordered: 29-Mar-2023 Derek Russell ERICA Inna Start : 26-Jan-2023 Active Start: 11-16-2021 take 100 mg by mouth once jing y Metoprolol Succinate Active 100 MG PO Daily November 16, 2021 12:00am take 1 tablet by augusto th at bedtime Metoprolol Succinate ER 100 MG Oral Tablet Extended Release 24 Hour TAKE 1 TABLET Bedtime Quantity: 90 Refills: 3 Ordered: 24-Apr-2022 Margareth Nunez MD Active metroNIDAZOLE 500 mg oral tablet (10 sources) Nitroimidazole Antimicrobial Start: 10-17-2021 metroNIDAZOLE 500 [...] 0 Refills: 0 Ordered: 20-Oct-2021 DO Active mupirocin 0.02 mg/mg topical ointment (1 source) RNA Synthetase Inhibitor Antibacterial Start: 4 End: 4 mupirocin (Bactroban) 2 % ointment 1 Application OLANZapine 5 mg oral tablet (20 sources) Atypical Antipsychotic Start: 0 End: 2 take 1 tablet by mouth once daily [...] capsule (20 sources) Proton Pump Inhibitor Start: 0 End: take 40 mg by mouth once daily [...] 12:00am June 15, 2020 11:46am Start: 09-20-2019 End: 02-16-2024 take 40 mg by mouth once daily Omeprazole Discontinued 40 MG PO Daily November 13, 2021 12:00am February 16, 2024 4:40pm Start: 08-29-2019 End: 06-07-2020 take 40 mg [...] mEq promethazine hydrochloride 25 mg oral tablet (12 sources) Phenothiazine Start: 10-09-2021 End: 10-17-2021 take 25 mg by mouth twice daily Promethazine Discontinued 25 MG PO Twice daily October 13, 2021 1:00am October 17, 2021 1:48pm take 1 tablet by augusto th every eight hours as needed promethazine (PHENERGAN) 25 MG tablet Ta ke 25 mg by mouth every 8 hours as needed. 0 Active rivaroxaban 20 mg oral tablet (15 sources) Factor Xa Inhibitor Start: 08-09-2019 End: [...] 2:54pm 200 ml vancomycin 5 mg/ml injection (9 sources) Glycopeptide Antibacterial Start: 09-29-2023 End: 09-29-2023 vancomycin (Vancocin) 1 g in dextrose 5% water 200 mL Start: 11-16-2021 End: 11-11-2023 take 125 mg by mouth every six hours Vancomycin Discontinued 125 MG PO Q6H 28 November 16, 2021 12:00am November 11, 2023 4:20pm Problems Active Problems Problem Classification Problem Date Documented Da te Episodic/Chronic Abdominal pain (8 sources) Finding of sensation of abdomen; Translations: [Unspecified abdominal pain] 10-30-2021 Episodic Acute and unspecified renal failure (10 sources) Injury of kidney; Translations: [Acute kidney failure, unspecified] Episodic Acute bronchitis (20 sources) Acute bronchitis; Translations: [Acute bronchitis] Episodic Acute myocardial infarction (7 sources) Myocardial infarction; Translations: [ST elevation (STEMI) myocardial infarction of unspecified site] Onset: 0 09-21-2019 Chronic Administrative/social admission (20 sources) Follow-up status; Translations: [Other specified counseling] Episodic Anxiety disorders (20 sources) Other specified anxiety disorders; Translations: [Generalized anxiety disorder] Onset: 2 09-02-2023 Chronic Asthma (20 sources) Unspecified asthma, uncomplicated; Translations: [Exercise-induced asthma] Onset: 9 02-24-2012 Chronic Cardiac dysrhythmias (20 sources) Ventricular tachycardia; Translations: [Paroxysmal atrial fibrillation] Onset: 2 Chronic Cardiac dysrhythmias (20 sources) Tachycardia; Translations: [Palpitations] Onset: 4 Episodic Chronic obstructive pulmonary disease and bronchiectasis (10 sources) Chronic obstructive lung disease; Translations: [Chronic obstructive pulmonary disease, unspecified] Onset: 4 11-13-2021 Chronic Chronic obstructive pulmonary disease and bronchiectasis (5 sources) Bronchitis; Translations: [Bronchitis, not specified as acute or chronic] 01-24-2024 Episodic Coagulation and hemorrhagic disorders (10 sources) Platelet count below reference range; Translations: [...] myocardial infarction; Translations: [Atherosclerotic heart disease of [place] coronary artery without angina pectoris] Onset: 8 Chronic Deficiency and other anemia (20 sources) Anemia; Translations: [Anemia, unspecified] Onset: 4 11-23-2020 Episodic Deficiency and other anemia (3 sources) Anemia, unspecified; Translations: [Anemia, unspecified] Episodic Deficiency and other anemia (9 sources) Iron deficiency anemia, unspecified; Translations: [Iron deficiency anemia, unspecified] Onset: 2 Episodic Deficiency and other anemia (11 sources) Iron deficiency anemia; Translations: [Iron deficiency anemia, unspecified] 11-24-2020 Episodic Delirium, dementia, and amnestic and other cognitive disorders (17 sources) Dementia; Translations: [Unspecified dementia without behavioral [...] epilepticus] Onset: 4 09-02-2023 Chronic Esophageal disorders (18 sources) Gastroesophageal reflux disease; Translations: [Gastro-esophageal reflux [...] heart failure Onset: 9 Chronic Intestinal infection (8 sources) Clostridium difficile diarrhea; Translations: [Enterocolitis due to Clostridium difficile, not specified as recurrent] 11-14-2021 Episodic Joint disorders and dislocations; trauma-related (3 sources) Derangement of right knee; Translations: [Unspecified internal derangement of right knee] Onset: 3 09-02-2023 Chronic Malaise and fatigue (8 sources) Asthenia; Translations: [Weakness] 10-30-2021 Episodic Mood disorders (20 sources) Depressive disorder; Translations: [Depression] Onset: 0 08-19-2020 Chronic Nonspecific chest pain (20 sources) Chest pain; Translations: [Chest pain, unspecified] Onset: 4 11-12-2021 Episodic Osteoarthritis (4 sources) Degenerative joint disease of thumb; Translations: [Primary osteoarthritis, unspecified hand] Onset: 2 06-23-2017 Chronic Other aftercare (1 source) senior living (current) use of aspirin Onset: 9 Episodic Other aftercare (19 sources) Drug therapy finding; Translations: [Long-term (current) use of other medications] Episodic Other aftercare (17 sources) Encounter for therapeutic drug level monitoring; Translations: [Medication monitoring encounter Z51.81] Onset: 1 Resolved: 2 Episodic Other aftercare (1 source) termite control representative (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) use of anticoagulants; Translations: [RETIREMENT CURRNT USE 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] Onset: 3 Episodic Other aftercare (11 sources) Anticoagulant effect; Translations: [termite control representative (current) use of anticoagulants] 11-11-2023 Episodic Other and ill-defined cerebrovascular disease (1 source) Cerebral aneurysm, nonruptured; Translations: [Cerebral aneurysm, nonruptured] Onset: 4 Chronic Other and ill-defined heart disease (3 sources) Intracardiac thrombosis, not elsewhere classified; Translations: [Other ill-defined heart diseases] Onset: 9 03-30-2024 Chronic Other and ill-defined heart disease (1 source) Thrombosis of atrium, auricular appendage, 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 Onset: 8 Chronic Other and ill-defined heart disease (20 sources) Thrombus of left atrium; Translations: [Other ill-defined heart diseases] Onset: 0 08-19-2020 Chronic Other and ill-defined heart disease (1 source) Atrial thrombosis ; Translations: [Intracardiac thrombosis, not elsewhere classified] 03-30-2024 Chronic Other circulatory disease (20 sources) History of cardiac arrhythmia; Translations: [Personal history of other diseases of circulatory system] Onset: 4 08-31-2023 Episodic Other circulatory disease (17 sources) Low blood pressure; Translations: [Hypotension, unspecified] 10-13-2021 Episodic Other circulatory disease (3 sources) History of aneurysm; Translations: [Personal history of other diseases of the circulatory system] 02-20-2024 Episodic Other circulatory disease (3 sources) Personal history of other diseases of the circulatory system; Translations: [Personal history of other diseases of circulatory system] 02-18-2024 Episodic Other connective tissue disease (6 sources) Unspecified rotator cuff tear or rupture of unspecified shoulder, not specified as traumatic; Translations: [Tear of rotator cuff] 11-11-2023 Episodic Other connective tissue disease (4 sources) Pain in right arm; Translations: [Pain in right arm] 02-18-2024 Episodic Other connective tissue disease (4 sources) Pain in right arm; Translations: [Pain in limb] 02-18-2024 Episodic Other hematologic conditions (7 sources) High troponin I level; Translations: [Other specified abnormalities of plasma proteins] 10-13-2021 Episodic Other hereditary and degenerative nervous system conditions (14 sources) Restless legs; Translations: [Restless legs syndrome] Onset: 4 09-02-2023 Chronic Other hereditary and degenerative nervous system conditions (3 sources) Restless legs syndrome; Translations: [Restless legs syndrome (RLS)] 02-18-2024 Chronic Other infections; including parasitic (8 sources) Infection by Trichomonas; Translations: [Trichomoniasis, unspecified] 10-14-2021 Episodic Other injuries and conditions due to external causes (2 sources) Injury of right upper arm; Translations: [Unspecified injury of right shoulder and upper arm, initial encounter] 02-23-2024 Episodic Other injuries and conditions due to external causes (2 sources) Unspecified injury of right shoulder and upper arm, initial encounter; Translations: [Shoulder and upper arm injury] 02-22-2024 Episodic Other nervous system disorders (4 sources) Carpal tunnel syndrome; Translations: [Carpal tunnel syndrome, unspecified upper limb] Onset: 2 07-06-2002 Chronic Other nervous system disorders (3 sources) Chronic pain; Translations: [Other chronic pain] Onset: 3 09-02-2023 Chronic Other non-traumatic joint disorders (11 sources) Pain in right shoulder; Translations: [Right shoulder pain] Onset: 3 Episodic Other nutritional; endocrine; and metabolic disorders (1 source) Overweight Onset: 9 Chronic Other nutritional; endocrine; and metabolic disorders (20 sources) Obese class I; Translations: [Obesity, unspecified] Onset: 9 08-19-2020 Chronic Other nutritional; endocrine; and metabolic disorders (8 sources) Hypophosphatemia; Translations: [Other disorders of phosphorus [...] Episodic Poisoning by other medications and drugs (10 sources) Poisoning by digoxin; Translations: [Poisoning by cardiac-stimulant glycosides and drugs of similar action, accidental (unintentional), initial encounter] Episodic Pulmonary heart disease (20 sources) Pulmonary hypertension; Translations: [Pulmonary hypertension, unspecified] Onset: 2 07-13-2012 Chronic Pulmonary heart disease (11 sources) H/O: pulmonary embolus; Translations: [Personal history of pulmonary embolism] 11-11-2023 Episodic Residual codes; unclassified (3 sources) Insomnia; Translations: [Insomnia, unspecified] Onset: 4 09-02-2023 Episodic Screening and history of mental health and substance abuse codes (20 sources) Personal history of nicotine dependence; Translations: [Ex-smoker] Onset: 8 Episodic Comment on above: QUIT 02/2018; QUIT 02/2018 had res tarted then requit 08/2021; Shock (12 sources) Shock; Translations: [Shock, unspecified] Onset: 0 10-14-2021 Episodic Skin and subcutaneous tissue infections (1 source) Cellulitis of face; Translations: [Cellulitis and abscess of face] 11-11-2023 Episodic Substance-related disorders (20 sources) Nicotine dependence; Translations: [Nicotine dependence, unspecified, uncomplicated] Onset: 3 08-25-2021 Chronic Superficial injury; contusion (9 sources) Contusion of foot; Translations: [Contusion of unspecified foot, initial encounter] Onset: 3 09-02-2023 Episodic Thyroid disorders (12 sources) Hypothyroidism, unspecified; Translations: [Acquired hypothyroidism] Onset: 8 11-11-2023 Chronic Unclassified (1 source) Body mass index (BMI) 32.0-32.9, adult Onset: 9 Unclassified (1 source) termite control representative (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) use of anticoagulants Onset: 8 Unclassified (1 source) Other nonrheumatic aortic valve disorders Onset: 8 Unclassified (1 source) Athscl heart disease of [place]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 ang pctrs Onset: 9 Unclassified (1 source) Unspecified convulsions Onset: 9 Unclassified (1 source) senior living (current) use of antithrombotics/antipl atelets Onset: 8 [...] PAIN, UNSPECIFIED] Onset: 3 Unclassified (1 source) Longstanding persistent atrial fibrillation; Translations: [Longstanding persistent atrial fibrillation] Onset: 4 Unclassified (1 source) Other supraventricular tachycardia; Translations: [Other supraventricular tachycardia] Onset: 4 Unclassified (1 source) Ventricular tachycardia, unspecified (CMS/HCC); Translations: [Ventricular tachycardia, unspecified (CMS/HCC)] Onset: 4 Unclassified (1 source) Ventricular tachycardia, unspecified; Translations: [Ventricular tachycardia, unspecified] Onset: 4 Unclassified (1 source) Encounter for [...] electrode, initial encounter] Onset: 07-24-2020 07-24-2020 Episodic Coronary atherosclerosis and other heart disease (20 sources) Presence of aortocoronary bypass graft; Translations: [Patient post percutaneous transluminal coronary angioplasty] Onset: 10-12-2018 08-31-2023 Episodic Fracture of upper limb (4 sources) Displaced fracture of greater tuberosity of right humerus, initial encounter for closed fracture; Translations: [Other displaced fracture of upper end of right humerus, initial encounter for closed fracture] Onset: 02-05-2013 Episodic Other aftercare (1 source) Other termite control representative (current) drug therapy; Translations: [OTH RETIREMENT CURRENT DRUG THERAPY] Onset: 04-20-2022 Episodic Other circulatory disease (1 source) Hypotension, unspecified; Translations: [Hypotension, unspecified] Episodic Other hematologic conditions (3 sources) Other specified abnormalities of plasma proteins; Translations: [Other abnormal blood chemistry] Episodic Unclassified (1 source) LOW BACK PAIN, UNSPECIFIED; Translations: [LOW BACK PAIN, UNSPECIFIED] Onset: 10-26-2022 Unclassified (1 source) Other supraventricular tachycardia; Translations: [Other supraventricular tachycardia] Onset: 09-02-2023 Unclassified (1 source) Ventricular tachycardia, unspecified (CMS/HCC); Translations: [Ventricular tachycardia, unspecified (CMS/HCC)] Onset: 09-02-2023 Results Test Name Value Interpretation Reference Range Facility Acanthocytes [Presence] in B lood by Light microscopyOrdered By: Kristyn Russell on 03-30-2024 Acanthocytes LM Ql (Bld) [facility] Activated partial thrombopla stin time (aPTT) in platelet poor plasma by coagulation aOrdered By: Pedro Melo on 03-30-2024 aPTT Coag (PPP) [Time] 25.3 s 25.1-36.5 [facility] Comment on above: A hematocrit value g reater than 55% may lead to inaccurate results in coagulation testing. Patients having hematocrit values >55% require a special collection tube for coagulation studies. Please contact the laboratory at [phone] for redraw instructions. Amphetamine Screen Ql (U)Ord ered By: Pedro Melo on 03-30-2024 Amphetamines Ql (U) Negative Negative [facility] Anisocytosis [Presence] in B lood by Light microscopyOrdered By: Kristyn Russell on 03-30-2024 Anisocytosis Ql (Bld) Marked Normal [facility] Comment on above: Performed By: #### C K, BNP, HS TROP, PTT, PT #### [address] Anisocytosis [Presence] in B lood by Light microscopyOrdered By: Pedro Melo on 03-30-2024 Anisocytosis Ql (Bld) Marked Normal [facility] Comment on above: Performed By: #### C K, BNP, HS TROP, PTT, PT #### [address] Automated basophil %Ordered By: Kristyn Russell on 03-30-2024 Basophils/100 WBC (Bld) 1.5 % Normal . [facility] Comment on above: Performed By: #### C K, BNP, HS TROP, PTT, PT #### [address] Automated basophil countOrde red By: Kristyn Russell on 03-30-2024 Basophils (Bld) [#/Vol] 0.2 10*3/uL Normal 0.0-0.2 [facility] Comment on above: Performed By: #### C K, BNP, HS TROP, PTT, PT #### [address] Automated blood monocyte cou ntOrdered By: Kristyn Russell on 03-30-2024 Monocytes (Bld) [#/Vol] 1.0 10*3/uL High 0.0-0.8 [facility] Comment on above: Performed By: #### C K, BNP, HS TROP, PTT, PT #### [address] Automated eosinophil %Ordere d By: Kristyn Russell on 03-30-2024 Eosinophils/100 WBC (Bld) 0.6 % Normal . [facility] Comment on above: Performed By: #### C K, BNP, HS TROP, PTT, PT #### [address] Automated eosinophil countOr dered By: Kristyn Russell on 03-30-2024 Eosinophils (Bld) [#/Vol] 0.1 10*3/uL Normal 0.0-0.45 [facility] Comment on above: Performed By: #### C K, BNP, HS TROP, PTT, PT #### [address] Automated monocyte %Ordered By: Kristyn Russell on 03-30-2024 Monocytes/100 WBC (Bld) 8.7 % Normal . [facility] Comment on above: Performed By: #### C K, BNP, HS TROP, PTT, PT #### [address] Automated neutrophil %Ordere d By: Kristyn Russell on 03-30-2024 Neutrophils/100 WBC (Bld) 74.8 % Normal . [facility] Comment on above: Performed By: #### C K, BNP, HS TROP, PTT, PT #### [address] BNP ser/plasOrdered By: Isai Melo on 03-30-2024 Natriuretic peptide B (Bld) [Mass/Vol] 256.0 pg/mL High 5-100 [facility] Comment on above: Result Comment: PERF ORMED BY: [place] [address] PATHOLOGIST NARCOTICS AND/OR VICE DETECTIVE LILIANA CLAY M.D. Performed By: #### C K, BNP, HS TROP, PTT, PT #### [address] Bacteria [Presence] in Urine by AutomatedOrdered By: Pedro Melo on 03-30-2024 Bacteria Auto Ql (U) 2+ [HPF] High None Seen [facility] Barbiturates [Presence] in U rine by Screen methodOrdered By: Pedro Melo on 03-30-2024 Barbiturates Screen Ql (U) Positive High Negative [facility] Basic Metabolic Panelon Creatinine Clr Calc Pharmacy 62.62 Normal [facility] Comment on above: Performed By: #### M G, TSH3, FE and TIBC, LIPID, SCAN CBC, NEHAL, BMP #### [address] GFR/1.73 sq M.predicted MDRD (S/P/Bld) [Vol rate/Area] mL/min/{1.73_m2} Normal [facility] Comment on above: Performed By: #### M G, TSH3, FE and TIBC, LIPID, SCAN CBC, NEHAL, BMP #### [address] Creatinine Clr Calc Pharmacy 58.60 Normal [facility] Comment on above: Result Comment: PERF ORMED BY: [place] [address] PATHOLOGIST NARCOTICS AND/OR VICE DETECTIVE LILIANA CLAY M.D. Performed By: #### C K, BNP, HS TROP, PTT, PT #### [place] [address] [place] GFR/1.73 sq M.predicted MDRD (S/P/Bld) [Vol rate/Area] mL/min/{1.73_m2} Normal [facility] Comment on above: Performed By: #### C K, BNP, HS TROP, PTT, PT #### [address] Basophils Auto (Bld) [#/Vol] Ordered By: Pedro Melo on 03-30-2024 Basophils (Bld) [#/Vol] N/A [facility] Basophils/100 WBC Auto (Bld) Ordered By: Pedro Melo on 03-30-2024 Basophils/100 WBC (Bld) N/A [facility] Basophils/100 leukocytes in Blood by Manual countOrdered By: Pedro Melo on 03-30-2024 Basophils/100 WBC (Bld) 2 % Normal 0-2 [facility] Comment on above: Performed By: #### C K, BNP, HS TROP, PTT, PT #### [address] Benzodiazepines Screen Ql (U )Ordered By: ePdro Melo on 03-30-2024 Benzodiazepines Ql (U) Negative Negative [facility] Benzoylecgonine [Presence] i n Urine by Screen methodOrdered By: Pedro Melo on 03-30-2024 Benzoylecgonine Screen Ql (U) Negative Negative [facility] Bilirubin Test strip Ql (U)O rdered By: Pedro Melo on 03-30-2024 Bilirubin Ql (U) Negative Negative [facility] Jonah cells [Presence] in Blo od by Light microscopyOrdered By: Kristyn Russell on 03-30-2024 [place] cells LM Ql (Bld) [facility]-30 CT head/brain wo con [place] [address] CT Scan Report Signed Patient: Essence Vincent MR#: [id number] : 1970 Acct:[id number] Age/Sex: 53 / F ADM Date: 03/30/24 Loc: Room: [address] [place] [address] Type: ADM INOo Attending Dr: Patrica Mcmahon MD Copies to: Patrica Mcmahon MD Ordering Provider: Patrica Mcmahon MD Date of Service: 03/30/24 CT/CT head/brain wo con: fall, head injury CT BRAIN WITHOUT CONTRAST: CLINICAL HISTORY: Fall, head injury. COMPARISON: None TECHNIQUE: Contiguous axial unenhanced images were obtained through the brain. This CT exam was performed using one or more following dose reduction techniques: Automated exposure control, adjustment of the mA and/or kV according to patient size, or use of iterative reconstruction technique. FINDINGS: There is no evidence of midline shift, intra or extra-axial fluid collection, hemorrhage or CT evidence of stroke. Cortical atrophy with chronic microvascular ischemic changes. Posterior fossa appears unremarkable. Visualized intraorbital contents demonstrate no acute findings. Visualized paranasal sinuses are clear. The surrounding soft tissues are normal. CT/CT head/brain wo con IMPRESSION: NO ACUTE INTRACRANIAL ABNORMALITY. Impression dictated by: Sy Bliss Jr., D.OTarun03/30/2024 3:32 PM Dictation Location: [place] [address] Transcribed By: [facility] 03/30/24 1532 Dictated By: Sy Bliss Jr, DO 03/30/24 1531 Signed By: 03/30/24 1532 Normal [facility] Calcium [Mass/volume] in Ser um or PlasmaOrdered By: Kristyn Russell on 03-30-2024 Calcium [Mass/Vol] 8.8 mg/dL Normal 8.6-10.3 [facility] Comment on above: Performed By: #### M G, TSH3, FE and TIBC, LIPID, SCAN CBC, NEHAL, BMP #### [facility] [address] Calcium [Mass/volume] in Ser um or PlasmaOrdered By: Pedro Melo on 03-30-2024 Calcium [Mass/Vol] 8.8 mg/dL Normal 8.6-10.3 [facility] Comment on above: Performed By: #### C K, BNP, HS TROP, PTT, PT #### [facility] [address] Cannabinoids [Presence] in U rine by Screen methodOrdered By: Pedro Melo on 03-30-2024 Cannabinoids Screen Ql (U) Positive High Negative [facility] Comment on above: These are unconfirme d results and should not be used for legal purposes. Drug Cut-Off Concentration: AMPH 1000 ng/mL ALESSANDRO 200 ng/mL RHINA 200 ng/mL COCM 300 ng/mL OP 300 ng/mL PCP 25 ng/mL THC 20 ng/mL Carbon dioxide, total [Moles /volume] in Serum or PlasmaOrdered By: Kristyn Russell on 03-30-2024 CO2 [Moles/Vol] 24.4 mmol/L Normal 21.0-31.0 [facility] Comment on above: Performed By: #### M G, TSH3, FE and TIBC, LIPID, SCAN CBC, NEHAL, BMP #### [facility] [address] [place] [address] [place] Carbon dioxide, total [Moles /volume] in Serum or PlasmaOrdered By: Pedro Melo on 03-30-2024 CO2 [Moles/Vol] 24.9 mmol/L Normal 21.0-31.0 [facility] Comment on above: Performed By: #### C K, BNP, HS TROP, PTT, PT #### [facility] [address] [place] [address] [place] Chloride [Moles/volume] in S daisy or PlasmaOrdered By: Kristyn Russell on 03-30-2024 Chloride [Moles/Vol] 103 mmol/L Normal 98-107 [facility] Comment on above: Performed By: #### M G, TSH3, FE and TIBC, LIPID, SCAN CBC, NEHAL, BMP #### [facility] [address] [place] [id number] [place] Chloride [Moles/volume] in S daisy or PlasmaOrdered By: Pedro Melo on 03-30-2024 Chloride [Moles/Vol] 103 mmol/L Normal 98-107 [facility] Comment on above: Performed By: #### C K, BNP, HS TROP, PTT, PT #### [facility] [address] [place] [id number] [place] Cholesterol [Mass/volume] in Serum or PlasmaOrdered By: Kristyn Russell on 03-30-2024 Cholesterol [Mass/Vol] 89 mg/dL Low 140-200 [facility] Comment on above: Chol less than 200 m g/dl low riskChol 201-239 mg/dl borderline riskChol 240 mg/dl and greater high risk Result Comment: Chol less than 200 mg/dl low risk Chol 201-239 mg/dl borderline risk Chol 240 mg/dl and greater high risk Performed By: #### C K, BNP, HS TROP, PTT, PT #### [facility] [address] [id number] [place] Cholesterol in LDL Calc [Mas s/Vol]Ordered By: Kristyn Russell on 03-30-2024 Cholesterol in LDL [Mass/Vol] 38 mg/dL 0-100 [facility] Comment on above: LDL ATP III CLASSIFI CATIONLDL less than 100 mg/dL OptimalLDL 100-129 mg/dL Near or above optimalLDL 130-159 mg/dL Borderline highLDL 160-189 mg/dL HighLDL greater than 189 mg/dL Very high Cholesterol in VLDL Calc [Ma ss/Vol]Ordered By: Kristyn Russell on 03-30-2024 Cholesterol in VLDL [Mass/Vol] 11 mg/dL [facility] Color of Urine by AutoOrdere d By: Pedro Melo on 03-30-2024 Color (U) Light-yellow Normal Yellow [facility] Comment on above: Order Comment: Name Collection Type:: Clean-Voided Midstream Performed By: #### C K, BNP, HS TROP, PTT, PT #### [address] Creatine kinase [Enzymatic a ctivity/volume] in Serum or PlasmaOrdered By: Pedro Melo on 03-30-2024 CK [Catalytic activity/Vol] 93 U/L Normal 30-223 [facility] Comment on above: Performed By: #### C K, BNP, HS TROP, PTT, PT #### [address] Creatinine [Mass/volume] in Serum or PlasmaOrdered By: Kristyn Russell on 03-30-2024 Creatinine [Mass/Vol] 0.99 mg/dL Normal 0.60-1.[address] [facility] Comment on above: Performed By: #### M G, TSH3, FE and TIBC, LIPID, SCAN CBC, NEHAL, BMP #### [address] Creatinine [Mass/volume] in Serum or PlasmaOrdered By: Pedro Melo on 03-30-2024 Creatinine [Mass/Vol] 1.06 mg/dL Normal 0.60-1.[address] [facility] Comment on above: Performed By: #### C K, BNP, HS TROP, PTT, PT #### [address] Diff and CBCon 03-30-2024 Giant Platelet Tally 5 /100{WBC} Normal [facility] Comment on above: Performed By: #### C K, BNP, HS TROP, PTT, PT #### [address] Hypochromasia Marked Normal [facility] Comment on above: Performed By: #### C K, BNP, HS TROP, PTT, PT #### [address] Mean Corpuscular HGB Conc 29.8 g/dL Low 32.0-35.0 [facility] Comment on above: Performed By: #### C K, BNP, HS TROP, PTT, PT #### [address] Microcytosis Marked Normal [facility] Comment on above: Performed By: #### C K, BNP, HS TROP, PTT, PT #### [address] Monocytes/100 WBC (Bld) 16.64 % Normal 0.00-20.00 [facility] Comment on above: Performed By: #### C K, BNP, HS TROP, PTT, PT #### [address] Myelocytes 1 % High 0-0 [facility] Comment on above: Performed By: #### C K, BNP, HS TROP, PTT, PT #### [address] Ovalocytes Slight Normal [facility] Comment on above: Performed By: #### C K, BNP, HS TROP, PTT, PT #### [address] Platelet Estimate Normal Normal Normal [facility] Comment on above: Performed By: #### C K, BNP, HS TROP, PTT, PT #### [address] Platelet Morphology Normal Normal Normal [facility] Comment on above: Result Comment: PERF ORMED BY: [place] [address] PATHOLOGIST NARCOTICS AND/OR VICE DETECTIVE LILIANA CLAY M.D. Performed By: #### C K, BNP, HS TROP, PTT, PT #### [place] [address] [place] Poikilocytosis Moderate Normal [facility] Comment on above: Performed By: #### C K, BNP, HS TROP, PTT, PT #### [address] Polychromasia Slight Normal [facility] Comment on above: Performed By: #### C K, BNP, HS TROP, PTT, PT #### [facility] [address] Schistocytes Slight Normal [facility] Comment on above: Performed By: #### C K, BNP, HS TROP, PTT, PT #### [facility] [address] Sickle Cells Slight High None Seen [facility] Comment on above: Performed By: #### C K, BNP, HS TROP, PTT, PT #### [address] Target Cells Slight Normal [facility] Comment on above: Performed By: #### C K, BNP, HS TROP, PTT, PT #### [address] Tear Drop Cells Slight Normal [facility] Comment on above: Performed By: #### C K, BNP, HS TROP, PTT, PT #### [address] Dipstick and Microscopicon 0 03-30-2024 Bacteria,Urine 2+ High None Seen [facility] Comment on above: Order Comment: Name Collection Type:: Clean-Voided Midstream Performed By: #### C K, BNP, HS TROP, PTT, PT #### [address] Hyaline Casts,Urine 9-19 High 0-8 [facility] Comment on above: Order Comment: Name Collection Type:: Clean-Voided Midstream Performed By: #### C K, BNP, HS TROP, PTT, PT #### [place] [address] [place] Mucus,Urine Rare Normal [facility] Comment on above: Order Comment: Name Collection Type:: Clean-Voided Midstream Result Comment: PERF ORMED BY: [place] [address] PATHOLOGIST NARCOTICS AND/OR VICE DETECTIVE LILIANA CLAY M.D. Performed By: #### C K, BNP, HS TROP, PTT, PT #### [address] RBC,Urine 1-2 Normal 0-4 [facility] Comment on above: Order Comment: Name Collection Type:: Clean-Voided Midstream Performed By: #### C K, BNP, HS TROP, PTT, PT #### [address] Squamous Epithelial Cell,Urine 10-19 High 0-2 [facility] Comment on above: Order Comment: Name Collection Type:: Clean-Voided Midstream Performed By: #### C K, BNP, HS TROP, PTT, PT #### [address] WBC,Urine 10-19 High 0-4 [facility] Comment on above: Order Comment: Name Collection Type:: Clean-Voided Midstream Performed By: #### C K, BNP, HS TROP, PTT, PT #### [address] Drug Screen,Urineon 03-30-20 24 Amphetamine Screen,Urine Negative Normal Negative [facility] Comment on above: Performed By: #### C K, BNP, HS TROP, PTT, PT #### [address] Barbiturate Screen,Urine Positive High Negative [facility] Comment on above: Performed By: #### C K, BNP, HS TROP, PTT, PT #### [address] Benzodiazepines Screen,Urine Negative Normal Negative [facility] Comment on above: Performed By: #### C K, BNP, HS TROP, PTT, PT #### [address] Cannabinoid Screen,Urine Positive High Negative [facility] Comment on above: Result Comment: Thes e are unconfirmed results and should not be used for legal purposes. Drug Cut-Off Concentration: AMPH 1000 ng/mL ALESSANDRO 200 ng/mL RHINA 200 ng/mL COCM 300 ng/mL OP 300 ng/mL PCP 25 ng/mL THC 20 ng/mL PERFORMED BY: [place] [address] PATHOLOGIST NARCOTICS AND/OR VICE DETECTIVE LILIANA CLAY M.D. Performed By: #### C K, BNP, HS TROP, PTT, PT #### [address] Cocaine Screen,Urine Negative Normal Negative [facility] Comment on above: Performed By: #### C K, BNP, HS TROP, PTT, PT #### [facility] [address] Opiate Screen,Urine Negative Normal Negative [facility] Comment on above: Performed By: #### C K, BNP, HS TROP, PTT, PT #### [address] Phencyclidine Screen,Urine Negative Normal Negative [facility] Comment on above: Performed By: #### C K, BNP, HS TROP, PTT, PT #### [address] ECH echo transthoracicon ECH echo transthoracic [facility] [place] [address] [place] [address] Echocardiogram Signed Patient: Essence Vincent MR#: [id number] : 1970 Acct:[id number] Age/Sex: 53 / F ADM Date: 03/30/24 Loc: Room: [address] [place] [address] Type: ADM INOo Attending Dr: Patrica Mcmahon MD Ordering Provider: Kristyn Russell APRN Date of Service: 03/30/2409/22/499 ECH/ECH echo transthoracic: chf, chest pain Copies to: Sherly Brewer MD, [facility] Kristyn Russell APRN Ordering Physician: Kristyn Russell Height: 64 in Weight: 156 lb Performed By: MICHAEL Walton BSA: 1.8 m2 BP: 131/80 mmHg HR: 79 Reason For Study: chf, chest pain History: Atrial Thrombus, CHF, COPD, Depression, Hypotension, RI, AICD, SVT, Mitral Valve Replacement, CABG, Ablation, Smoker Interpretation Summary Mild concentric left ventricular hypertrophy. Severe hypokinesis of the inferolateral wall, the apex, distal septum and the mid to distal anterior wall demonstrate reasonable contractility Ejection Fraction = 30-35%. Mitral valve tissue Doppler imaging demonstrated evidence of severe increase in left atrial pressure The left atrium appears moderately dilated. The mitral valve is a bioprosthesis with evidence by Doppler of at least moderate degree of stenosis and a mean pressure gradient between 10-12 mmHg, no significant mitral regurgitation seen There is mild tricuspid regurgitation. The right ventricular systolic pressure is 57 mmHg. Right ventricular systolic pressure is consistent with moderate pulmonary hypertension. A pacemaker/defibrillator wire is seen Procedure/Quality: A two-dimensional transthoracic echocardiogram with color flow, Doppler and injection of contrast agent Definity was performed. The study was technically good in quality. Left Ventricle: Mild concentric left ventricular hypertrophy. Ejection Fraction = 30-35%. Mitral valve tissue Doppler imaging demonstrated evidence of severe increase in left atrial pressure. Severe hypokinesis of the inferolateral wall, the apex, distal septum and the mid to distal anterior wall demonstrate reasonable contractility. Left Atrium: The left atrium appears moderately dilated. The atrial septum appears normal. Right Atrium: The right atrium appears normal in size. Right Ventricle: The right ventricular size, thickness and function are normal. Aortic Valve: The aortic valve is mildly calcified. Mitral Valve: The mitral valve is a bioprosthesis with evidence by Doppler of at least moderate degree of stenosis and a mean pressure gradient between 10-12 mmHg, no significant mitral regurgitation seen. Tricuspid Valve: The tricuspid valve is normal in structure. There is mild tricuspid regurgitation. The right ventricular systolic pressure is 57 mmHg. Right ventricular systolic pressure is consistent with moderate pulmonary hypertension. Pulmonic Valve: The pulmonic valve is not well seen, but is grossly normal. Arteries: The aortic root is normal size. Pericardium/Pleura: No pericardial effusion seen. There is no pleural effusion. IVC/Hepatic Veins: The inferior vena cava was not visualized during the exam. Miscellaneous: A pacemaker/defibrillator wire is seen. Measurements with Normals IVSd: 1.2 cm (0.7-1.1 cm)LVIDd: 5.1 cm (3.7-5.4 cm) LVPWd: 1.4 cm (0.7-1.1 cm)LVIDs: 4.7 cm (2.3-3.6 cm) LA dimension: 5.3 cm (2.3-4.0 cm)Ao root diam: 2.9 cm(2.0-3.6 cm) asc Aorta Diam: 2.9 cm(2.1-3.4cm) Doppler with Normals RVSP(TR): 57.1 mmHg (18-35mmHg) LV V1 max: 77.1 cm/sec (0.7-1.7m/s)MV E max mahi: 242.3 cm/sec(0.8-1.3m/s) MV A max mahi: 159.0 cm/sec(0.0-0.0m/s) MV E/A: 1.5 (<1.5) MMode/2D Measurements Calculations RVDd: 4.1 cm FS: 7.8 % Ao root area: LVOT diam: 2.0 cm TAPSE: 2.6 cm EDV(Teich): 6.6 cm2 LVOT area: 3.1 cm2 RV S Mahi: 123.8 ml 10.1 cm/sec ESV(Teich): 102.4 ml EF(Teich): 17.3 % __ LVLd ap4: 8.9 cm SV(MOD-sp4): LAV(MOD-sp4): LA A2 area: 36.6 cm2 EDV(MOD-sp4): 51.0 ml 139.0 ml 205.0 ml LAV(MOD-sp2): LA A4 area: 35.3 cm2 LVLs ap4: 7.6 cm 169.0 ml LA length (vol): ESV(MOD-sp4): 7.2 cm 154.0 ml LA vol: 151.5 ml EF(MOD-sp4): 24.9 % LA vol index: 86.1 ml/m2 Doppler Measurements Calculations MV dec time: MV V2 max: E/E' lat: 47.4 MV dec slope: 0.23 sec 240.7 cm/sec E/E' med: 60.1 MV max P.2 mmHg 1042 cm/sec2 MV V2 mean: 155.7 cm/sec MV mean P.0 mmHg MV V2 VTI: 53.0 cm MVA(VTI): 0.83 cm2 __ Ao V2 max: LV V1 max PG: TV max PG: TR max mahi: 152.0 cm/sec 2.4 mmHg 47.0 mmHg 343.0 cm/sec Ao max P.2 mmHg LV V1 mean PG: TR max P.1 mmHg Ao mean P.0 mmHg1.0 mmHg RAP systole: Ao V2 mean: LV V1 mean: 10.0 mmHg 101.0 cm/sec 53.2 cm/sec Ao V2 VTI: 29.7 cm LV V1 VTI: 14.0 cm JAM(I,D): 1.5 cm2 JAM(V,D): 1.6 cm2 ___ Electronically (more content not included)... Normal [facility] Eosinophils Auto (Bld) [#/Vo l]Ordered By: Pedro Melo on 03-30-2024 Eosinophils (Bld) [#/Vol] N/A [facility] Eosinophils/100 WBC Auto (Bl d)Ordered By: Pedro Melo on 03-30-2024 Eosinophils/100 WBC (Bld) N/A [facility] Eosinophils/100 leukocytes i n Blood by Manual countOrdered By: Pedro Melo on 03-30-2024 Eosinophils/100 WBC (Bld) 2 % Normal 1-3 [facility] Comment on above: Performed By: #### C K, BNP, HS TROP, PTT, PT #### [address] Epithelial cells.squamous [# /area] in Urine sediment by Automated countOrdered By: Pedro Melo on 03-30-2024 Epithelial cells.squamous Auto (Urine sed) [#/Area] 10-19 [HPF] High 0-2 [facility] Erythrocyte distribution wid th [Ratio] by Automated countOrdered By: Kristyn Russell on 03-30-2024 Erythrocyte distribution width (RBC) [Ratio] 20.4 % High 11.9-15.3 [facility] Comment on above: Performed By: #### C K, BNP, HS TROP, PTT, PT #### [facility] [address] [place] [address] Erythrocyte distribution wid th [Ratio] by Automated countOrdered By: Pedro Melo on 03-30-2024 Erythrocyte distribution width (RBC) [Ratio] 20.5 % High 11.9-15.3 [facility] Comment on above: Performed By: #### C K, BNP, HS TROP, PTT, PT #### [address] Erythrocyte sickle cell dete ctionOrdered By: Pedro Melo on 03-30-2024 Sickle cells LM Ql (Bld) Slight High None Seen [facility] Erythrocytes [#/area] in Uri ne sediment by Automated countOrdered By: Pedro Melo on 03-30-2024 RBC Auto (Urine sed) [#/Area] 1-2 [HPF] 0-4 [facility] Erythrocytes [#/volume] in B lood by Automated countOrdered By: Kristyn Russell on 03-30-2024 RBC (Bld) [#/Vol] 5.05 10*6/uL High 3.60-5.00 [facility] Comment on above: Performed By: #### C K, BNP, HS TROP, PTT, PT #### [address] Erythrocytes [#/volume] in B lood by Automated countOrdered By: Pedro Melo on 03-30-2024 RBC (Bld) [#/Vol] 5.00 10*6/uL Normal 3.60-5.00 [facility] Comment on above: Performed By: #### C K, BNP, HS TROP, PTT, PT #### [address] Ferritin [Mass/volume] in Se rum or PlasmaOrdered By: Kristyn Russell on 03-30-2024 Ferritin [Mass/Vol] 18.6 ng/mL Normal 11.0-306.8 [facility] Comment on above: Performed By: #### M G, TSH3, FE and TIBC, LIPID, SCAN CBC, NEHAL, BMP #### [facility] [address] [id number] [place] Giant platelets/100 leukocyt es [Ratio] in Blood by Manual countOrdered By: Pedro Melo on 03-30-2024 Giant platelets/100 WBC Manual cnt (Bld) [Ratio] 5 /100{WBC} [facility] Glucose [Mass/volume] in Ser um or PlasmaOrdered By: Kristyn Russell on 03-30-2024 Glucose [Mass/Vol] 83 mg/dL Normal 70-100 [facility] Comment on above: ADA recommended refe rence rangeRandom Glucose Reference Range is dependent on time and content of last meal. Glucose of more than 200 mg/dL in a nonstressed, ambulatory subject supports the diagnosis of Diabetes Mellitus. Result Comment: [place] om Glucose Reference Range is dependent on time and content of last meal. Glucose of more than 200 mg/dL in a nonstressed, ambulatory subject supports the diagnosis of Diabetes Mellitus. ADA recommended reference range Performed By: #### M G, TSH3, FE and TIBC, LIPID, SCAN CBC, NEHAL, BMP #### [facility] [address] [id number] [place] Glucose [Mass/volume] in Ser um or PlasmaOrdered By: Pedro Melo on 03-30-2024 Glucose [Mass/Vol] 126 mg/dL High 70-100 [facility] Comment on above: ADA recommended refe rence rangeRandom Glucose Reference Range is dependent on time and content of last meal. Glucose of more than 200 mg/dL in a nonstressed, ambulatory subject supports the diagnosis of Diabetes Mellitus. Result Comment: [place] om Glucose Reference Range is dependent on time and content of last meal. Glucose of more than 200 mg/dL in a nonstressed, ambulatory subject supports the diagnosis of Diabetes Mellitus. ADA recommended reference range Performed By: #### C K, BNP, HS TROP, PTT, PT #### [facility] [address] [id number] [place] Glucose [Mass/volume] in Uri ne by Test stripOrdered By: Pedro Melo on 03-30-2024 Glucose Test strip (U) [Mass/Vol] Normal mg/dL Normal [facility] Helmet cell detectionOrdered By: Kristyn Russell on 03-30-2024 Helmet cells LM Ql (Bld) Slight [facility] Hematocrit [Volume Fraction] of Blood by Automated countOrdered By: Kristyn Russell on 03-30-2024 Hematocrit (Bld) [Volume fraction] 31.6 % Low 34.0-46.4 [facility] Comment on above: Performed By: #### C K, BNP, HS TROP, PTT, PT #### [address] Hematocrit [Volume Fraction] of Blood by Automated countOrdered By: Pedro Melo on 03-30-2024 Hematocrit (Bld) [Volume fraction] 31.3 % Low 34.0-46.4 [facility] Comment on above: Performed By: #### C K, BNP, HS TROP, PTT, PT #### [address] Hemoglobin Test strip Ql (U) Ordered By: Pedro Melo on 03-30-2024 Hemoglobin Ql (U) Trace High Negative [facility] Hemoglobin [Mass/volume] in BloodOrdered By: Kristyn Russell on 03-30-2024 Hemoglobin (Bld) [Mass/Vol] 9.5 g/dL Low 11.8-15.4 [facility] Comment on above: Performed By: #### C K, BNP, HS TROP, PTT, PT #### [address] Hemoglobin [Mass/volume] in BloodOrdered By: Pedro Melo on 03-30-2024 Hemoglobin (Bld) [Mass/Vol] 9.3 g/dL Low 11.8-15.4 [facility] Comment on above: Performed By: #### C K, BNP, HS TROP, PTT, PT #### [place] [address] [place] Hyaline casts [#/area] in Ur ine sediment by Automated countOrdered By: Pedro Melo on 03-30-2024 Hyaline casts Auto (Urine sed) [#/Area] 9-19 [LPF] High 0-8 [facility] Hypochromia LM Ql (Bld)Order ed By: Kristyn Russell on 03-30-2024 Hypochromia Ql (Bld) Marked [facility] Hypochromia LM Ql (Bld)Order ed By: Pedro Melo on 03-30-2024 Hypochromia Ql (Bld) Marked [facility] INR in Platelet poor plasma by Coagulation assayOrdered By: Kristyn Russell on 03-30-2024 INR Coag (PPP) [Relative time] 1.1 {INR} Normal [facility] Comment on above: INR Therapeutic [...] with mechanical heart valves: 3 - 4.5 PERFORMED BY: [place] [address] PATHOLOGIST NARCOTICS AND/OR VICE DETECTIVE LILIANA CLAY M.D. Performed By: #### C K, BNP, HS TROP, PTT, PT #### [address] INR in Platelet poor plasma by Coagulation assayOrdered By: Pedro Melo on 03-30-2024 INR Coag (PPP) [Relative time] 1.1 {INR} Normal [facility] Comment on above: INR Therapeutic [...] valves: 3 - 4.5 Performed By: #### C K, BNP, HS TROP, PTT, PT #### [facility] [address] Iron [Mass/volume] in Serum or PlasmaOrdered By: Kristyn Russell on 03-30-2024 Iron [Mass/Vol] 19 ug/dL Low 50-212 [facility] Comment on above: Performed By: #### M G, TSH3, FE and TIBC, LIPID, SCAN CBC, NEHAL, BMP #### [facility] [address] Iron and TIBC Profileon 08- % Iron Saturation 3.7 % Low 20-50 [facility] Comment on above: Performed By: #### M G, TSH3, FE and TIBC, LIPID, SCAN CBC, NEHAL, BMP #### [facility] [address] Total Iron Binding Capacity 512 ug/dL High 255-450 [facility] Comment on above: Performed By: #### M G, TSH3, FE and TIBC, LIPID, SCAN CBC, NEHAL, BMP #### [facility] [address] [id number] [facility] Iron binding capacity [Mass/ volume] in Serum or PlasmaOrdered By: Kristyn Russell on 03-30-2024 Iron binding capacity [Mass/Vol] 512 ug/dL High 255-450 [facility] Iron saturation [Mass Fracti on] in Serum or PlasmaOrdered By: Kristyn Russell on 03-30-2024 Iron saturation [Mass fraction] 3.7 % Low 20-50 [facility] Ketones [Presence] in Urine by Test stripOrdered By: Pedro Melo on 03-30-2024 Ketones Ql (U) Negative Normal Negative [facility] Comment on above: Order Comment: Name Collection Type:: Clean-Voided Midstream Performed By: #### C K, BNP, HS TROP, PTT, PT #### [facility] [address] [id number] [facility] Siddharth 03-30-2024 L Specimen: [id number] Received: 03/30/24 Status: YADIRA Crocker Num: [id number] Spec Type: Impression Subm Dr: Pedro Melo DO Tissues: PATHPER Procedures: PATHREVIEW Age/ Patient Sex Location Account Attending Physician Essence Vincent 53/F 3T [id number] Patrica Mcmahon MD SPEC NUM: [id number] RECD: 03/30/24 STATUS: YADIRA KRYS NUM: [id number] MAC: 03/30/24 DR: Pedro Melo DO ENTERED: 03/30/[address]: SPEC TYPE: Impression DEPT: [place] ENTERED BY: [id number] RECV BY: [id number] ORDERED: PATHREVIEW ORDERED: PATHREVIEW Pathologist Review Microcytic Anemia Is Noted. Differential Diagnosis Includes Iron Deficiency Vs. Alpha Or Beta Thalassemia. Correlation With Iron Studies And Hemoglobin Electrophoresis Results Is Suggested. [id number] Specimen: [id number] Received: 03/30/24 Status: MIGUELOk Crocker Num: [id number] Spec Type: Impression Subm Dr: Pedro Melo DO Tissues: PATHPER Procedures: PATHREVIEW Patient: Essence Vincent [id number] (Continued) Signed (signature on file) Zacarias Ocampo MD 03/30/24 1505 Normal [facility] Leukocyte esterase [Presence ] in Urine by Test stripOrdered By: Pedro Melo on 03-30-2024 Leukocyte esterase Test strip Ql (U) 3+ High Negative [facility] Comment on above: Order Comment: Name Collection Type:: Clean-Voided Midstream Performed By: #### C K, BNP, HS TROP, PTT, PT #### [facility] [address] Leukocytes [#/area] in Urine sediment by Automated countOrdered By: Pedro Melo on 03-30-2024 WBC Auto (Urine sed) [#/Area] 10-19 [HPF] High 0-4 [facility] Leukocytes [#/volume] correc janis for nucleated erythrocytes in Blood by Automated counOrdered By: Kristyn Russell on 03-30-2024 WBC corrected for nucl RBC Auto (Bld) [#/Vol] 11.1 10*3/uL 3.8-11.6 [facility] Leukocytes [#/volume] correc janis for nucleated erythrocytes in Blood by Automated counOrdered By: Pedro Melo on 03-30-2024 WBC corrected for nucl RBC Auto (Bld) [#/Vol] 9.7 10*3/uL 3.8-11.6 [facility] Leukocytes [#/volume] in Blo od by Automated countOrdered By: Kristyn Russell on 03-30-2024 WBC (Bld) [#/Vol] 11.1 10*3/uL Normal 3.8-11.6 [facility] Comment on above: Performed By: #### C K, BNP, HS TROP, PTT, PT #### [facility] [address] Leukocytes [#/volume] in Blo od by Automated countOrdered By: Pedro Melo on 03-30-2024 WBC (Bld) [#/Vol] 9.7 10*3/uL Normal 3.8-11.6 [facility] Comment on above: Performed By: #### C K, BNP, HS TROP, PTT, PT #### [facility] [address] Lipid Panelon 03-30-2024 LDL Cholesterol,Calculated 38 mg/dL Normal 0-100 [facility] Comment on above: Result Comment: LDL ATP III CLASSIFICATION LDL less than 100 mg/dL Optimal LDL 100-129 mg/dL Near or above optimal LDL 130-159 mg/dL Borderline high LDL 160-189 mg/dL High LDL greater than 189 mg/dL Very high Performed By: #### C K, BNP, HS TROP, PTT, PT #### [address] Triglyceride w/Reflex 59 mg/dL Normal 0-149 [facility] Comment on above: Result Comment: TRIG ATP III CLASSIFICATION TRIG less than 150 mg/dL Normal TRIG 150-199 mg/dL Borderline high TRIG 200-500 mg/dL High TRIG greater than 500 mg/dL Very high Standard traceable to the [facility] Conrtrol and Prevention (CDC) test method. Performed By: #### C K, BNP, HS TROP, PTT, PT #### [facility] [address] [id number] [facility] VLDL CHOLESTEROL 11 mg/dL Normal [facility] Comment on above: Performed By: #### C K, BNP, HS TROP, PTT, PT #### [facility] [address] [place] [address] [place] Lymphocytes Auto (Bld) [#/Vo l]Ordered By: Pedro Melo on 03-30-2024 Lymphocytes (Bld) [#/Vol] N/A [facility] Lymphocytes [#/volume] in Bl ood by Automated countOrdered By: Kristyn Russell on 03-30-2024 Lymphocytes (Bld) [#/Vol] 1.6 10*3/uL Normal 1.00-4.8 [facility] Comment on above: Performed By: #### C K, BNP, HS TROP, PTT, PT #### [facility] [address] [place] [address] [place] Lymphocytes/100 WBC Auto (Bl d)Ordered By: Pedro Melo on 03-30-2024 Lymphocytes/100 WBC (Bld) N/A [facility] Lymphocytes/100 leukocytes i n Blood by Automated countOrdered By: Kristyn Russell on 03-30-2024 Lymphocytes/100 WBC (Bld) 14.4 % Normal . [facility] Comment on above: Performed By: #### C K, BNP, HS TROP, PTT, PT #### [facility] [address] [place] [address] [place] Lymphocytes/100 leukocytes i n Blood by Manual countOrdered By: Pedro Melo on 03-30-2024 Lymphocytes/100 WBC (Bld) 13 % Low 18-42 [facility] Comment on above: Performed By: #### C K, BNP, HS TROP, PTT, PT #### [facility] [address] [place] [address] [place] MCH [Entitic mass] by Automa janis countOrdered By: Kristyn Russell on 03-30-2024 MCH (RBC) [Entitic mass] 18.8 pg Low 24.7-34.3 [facility] Comment on above: Performed By: #### C K, BNP, HS TROP, PTT, PT #### [facility] [address] [place] [address] [place] MCH [Entitic mass] by Automa janis countOrdered By: Pedro Melo on 03-30-2024 MCH (RBC) [Entitic mass] 18.6 pg Low 24.7-34.3 [facility] Comment on above: Performed By: #### C K, BNP, HS TROP, PTT, PT #### [address] MCHC Auto (RBC) [Mass/Vol]Or dered By: Kristyn Russell on 03-30-2024 MCHC (RBC) [Mass/Vol] 30.0 g/dL Low 32.0-35.[address] [facility] MCHC Auto (RBC) [Mass/Vol]Or dered By: Pedro Melo on 03-30-2024 MCHC (RBC) [Mass/Vol] 29.8 g/dL Low 32.0-35.[address] [facility] MCV [Entitic volume] by Auto mated countOrdered By: Kristyn Russell on 03-30-2024 MCV (RBC) [Entitic vol] 62.5 fL Low 80-100 [facility] Comment on above: Performed By: #### C K, BNP, HS TROP, PTT, PT #### [address] MCV [Entitic volume] by Auto mated countOrdered By: Pedro Melo on 03-30-2024 MCV (RBC) [Entitic vol] 62.7 fL Low 80-100 [facility] Comment on above: Performed By: #### C K, BNP, HS TROP, PTT, PT #### [address] Magnesium [Mass/volume] in S daisy or PlasmaOrdered By: Kristyn Russell on 03-30-2024 Magnesium [Mass/Vol] 1.8 mg/dL Low 1.9-2.7 [facility] Comment on above: Performed By: #### M G, TSH3, FE and TIBC, LIPID, SCAN CBC, NEHAL, BMP #### [address] Manual blood segmented neutr ophils/100 leukocytesOrdered By: Pedro Melo on 03-30-2024 Segmented neutrophils/100 WBC (Bld) 77 % High 50-70 [facility] Comment on above: Performed By: #### C K, BNP, HS TROP, PTT, PT #### [facility] [address] Microcytes LM Ql (Bld)Ordere d By: Kristyn Russell on 03-30-2024 Microcytes Ql (Bld) Marked [facility] Microcytes LM Ql (Bld)Ordere d By: Pedro Melo on 03-30-2024 Microcytes Ql (Bld) Marked [facility] Monocyte distribution width [Entitic volume] in Blood by AutomatedOrdered By: Pedro Melo on 03-30-2024 Monocyte distribution width Auto (Bld) [Entitic vol] 16.64 % 0.00-20.00 [facility] Monocytes Auto (Bld) [#/Vol] Ordered By: Pedro Melo on 03-30-2024 Monocytes (Bld) [#/Vol] N/A [facility] Monocytes/100 WBC Auto (Bld) Ordered By: Pedro Melo on 03-30-2024 Monocytes/100 WBC (Bld) N/A [facility] Monocytes/100 leukocytes in Blood by Manual countOrdered By: Pedro Melo on 03-30-2024 Monocytes/100 WBC (Bld) 5 % Normal 2-11 [facility] Comment on above: Performed By: #### C K, BNP, HS TROP, PTT, PT #### [facility] [address] [place] [address] Mucus [Presence] in Urine by AutomatedOrdered By: Pedro Melo on 03-30-2024 Mucus Auto Ql (U) Rare [LPF] [facility] Myelocytes/100 WBC Manual cn t (Bld)Ordered By: Pedro Melo on 03-30-2024 Myelocytes/100 WBC (Bld) 1 % High 0-0 [facility] Neutrophils Auto (Bld) [#/Vo l]Ordered By: Pedro Melo on 03-30-2024 Neutrophils (Bld) [#/Vol] N/A [facility] Neutrophils [#/volume] in Bl ood by Automated countOrdered By: Kristyn Russell on 03-30-2024 Neutrophils (Bld) [#/Vol] 8.3 10*3/uL High 1.8-7.7 [facility] Comment on above: Performed By: #### C K, BNP, HS TROP, PTT, PT #### [facility] [address] Neutrophils/100 WBC Auto (Bl d)Ordered By: Pedro Melo on 03-30-2024 Neutrophils/100 WBC (Bld) N/A [facility] Nitrite Test strip Ql (U)Ord ered By: Pedro Melo on 03-30-2024 Nitrite Ql (U) Negative Negative [facility] No Panel InformationOrdered By: Kristyn Russell on 03-30-2024 Estimated GFR (CKD-EPI) > 60.0 mL/Min [facility] Creatinine Clearance (Chem 62.62 [facility] No Panel InformationOrdered By: Pedro Melo on 03-30-2024 Estimated GFR (CKD-EPI) > 60.0 mL/Min [facility] Creatinine Clearance (Chem 58.60 [facility] Slides for Pathologist Review Ordered path review [facility] Nucleated erythrocytes [Pres ence] in Blood by Automated countOrdered By: Kristyn Russell on 03-30-2024 Nucleated RBC Auto Ql (Bld) 0.0 /100{WBC} 0-0.5 [facility] Nucleated erythrocytes [Pres ence] in Blood by Automated countOrdered By: Pedro Melo on 03-30-2024 Nucleated RBC Auto Ql (Bld) N/A [facility] Opiates [Presence] in Urine by Screen methodOrdered By: Pedro Melo on 03-30-2024 Opiates Screen Ql (U) Negative Negative [facility] Ovalocyte detectionOrdered B y: Kristyn Russell on 03-30-2024 Ovalocytes LM Ql (Bld) Slight Fi [facility] Ovalocyte detectionOrdered B y: Pedro Melo on 03-30-2024 Ovalocytes LM Ql (Bld) Slight Fi [facility] Partial Thromboplastin Timeo n 03-30-2024 aPTT Coag (Bld) [Time] 25.3 s Normal 25.1-36.5 [facility] Comment on above: Result Comment: A he matocrit value greater than 55% may lead to inaccurate results in coagulation testing. Patients having hematocrit values >55% require a special collection tube for coagulation studies. Please contact the laboratory at [phone] for redraw instructions. PERFORMED BY: [place] [address] PATHOLOGIST NARCOTICS AND/OR VICE DETECTIVE LILIANA CLAY M.D. Performed By: #### C K, BNP, HS TROP, PTT, PT #### [address] Pathologist Slide Reviewon 0 03-30-2024 Pathologist Slide Review Ordered Path Review Normal [facility] Comment on above: Result Comment: PERF ORMED BY: [place] [address] PATHOLOGIST NARCOTICS AND/OR VICE DETECTIVE LILIANA CLAY M.D. Performed By: #### C K, BNP, HS TROP, PTT, PT #### [address] [id number] [facility] Phencyclidine Screen Ql (U)O rdered By: Pedro Melo on 03-30-2024 Phencyclidine Ql (U) Negative Negative [facility] Platelet adequacy [Presence] in Blood by Light microscopyOrdered By: Kristyn Russell on 03-30-2024 Platelets LM Ql (Bld) Normal Normal [facility] Platelet adequacy [Presence] in Blood by Light microscopyOrdered By: Pedro Melo on 03-30-2024 Platelets LM Ql (Bld) Normal Normal [facility] Platelet mean volume [Entiti c volume] in Blood by Automated countOrdered By: Kristyn Russell on 03-30-2024 Platelet mean volume (Bld) [Entitic vol] 9.3 fL Normal 6.3-10.7 [facility] Comment on above: Performed By: #### C K, BNP, HS TROP, PTT, PT #### [address] Platelet mean volume [Entiti c volume] in Blood by Automated countOrdered By: Pedro Melo on 03-30-2024 Platelet mean volume (Bld) [Entitic vol] 8.7 fL Normal 6.3-10.7 [facility] Comment on above: Performed By: #### C K, BNP, HS TROP, PTT, PT #### [facility] [address] [place] [address] Platelet morphology finding [Identifier] in BloodOrdered By: Kristyn Russell on 03-30-2024 Platelet morphology finding Nom (Bld) Normal Normal [facility] Platelet morphology finding [Identifier] in BloodOrdered By: Pedro Melo on 03-30-2024 Platelet morphology finding Nom (Bld) Normal Normal [facility] Platelets [#/volume] in Bloo d by Automated countOrdered By: Kristyn Russell on 03-30-2024 Platelets (Bld) [#/Vol] 247 10*3/uL Normal 150-450 [facility] Comment on above: Performed By: #### C K, BNP, HS TROP, PTT, PT #### [facility] [address] [place] [address] Platelets [#/volume] in Bloo d by Automated countOrdered By: Pedro Melo on 03-30-2024 Platelets (Bld) [#/Vol] 264 10*3/uL Normal 150-450 [facility] Comment on above: Performed By: #### C K, BNP, HS TROP, PTT, PT #### [facility] [address] [place] [address] Poikilocytosis [Presence] in Blood by Light microscopyOrdered By: Kristyn Russell on 03-30-2024 Poikilocytosis LM Ql (Bld) [facility] Poikilocytosis [Presence] in Blood by Light microscopyOrdered By: Pedro Melo on 03-30-2024 Poikilocytosis LM Ql (Bld) Moderate [facility] Polychromasia [Presence] in Blood by Light microscopyOrdered By: Kristyn Russell on 03-30-2024 Polychromasia LM Ql (Bld) Marked [facility] Polychromasia [Presence] in Blood by Light microscopyOrdered By: Pedro Melo on 03-30-2024 Polychromasia LM Ql (Bld) Slight [facility] Potassium [Moles/volume] in Serum or PlasmaOrdered By: Kristyn Russell on 03-30-2024 Potassium [Moles/Vol] 4.4 mmol/L Normal 3.5-5.[address] [facility] Comment on above: Performed By: #### M G, TSH3, FE and TIBC, LIPID, SCAN CBC, NEHAL, BMP #### [facility] [address] Potassium [Moles/volume] in Serum or PlasmaOrdered By: Pedro Melo on 03-30-2024 Potassium [Moles/Vol] 3.3 mmol/L Low 3.5-5.[address] [facility] Comment on above: Performed By: #### C K, BNP, HS TROP, PTT, PT #### [facility] [address] [place] [address] [facility] Protein Test strip (U) [Mass /Vol]Ordered By: Pedro Melo on 03-30-2024 Protein (U) [Mass/Vol] Negative Negative [facility] Prothrombin time (PT)Ordered By: Kristyn Russell on 03-30-2024 PT Coag (PPP) [Time] 12.5 s Normal 9.0-12.9 [facility] Comment on above: A hematocrit value g reater than 55% may lead to inaccurate results in coagulation testing. Patients having hematocrit values >55% require a special collection tube for coagulation studies. Please contact the laboratory at [phone] for redraw instructions. Result Comment: A he matocrit value greater than 55% may lead to inaccurate results in coagulation testing. Patients having hematocrit values >55% require a special collection tube for coagulation studies. Please contact the laboratory at [phone] for redraw instructions. Performed By: #### C K, BNP, HS TROP, PTT, PT #### [facility] [address] [place] [address] [facility] Prothrombin time (PT)Ordered By: Pedro Melo on 03-30-2024 PT Coag (PPP) [Time] 12.9 s Normal 9.0-12.9 [facility] Comment on above: A hematocrit value g reater than 55% may lead to inaccurate results in coagulation testing. Patients having hematocrit values >55% require a special collection tube for coagulation studies. Please contact the laboratory at [phone] for redraw instructions. Result Comment: A he matocrit value greater than 55% may lead to inaccurate results in coagulation testing. Patients having hematocrit values >55% require a special collection tube for coagulation studies. Please contact the laboratory at [phone] for redraw instructions. Performed By: #### C K, BNP, HS TROP, PTT, PT #### [address] RBC morphologyOrdered By: Mayo Russell on 03-30-2024 RBC morphology finding Nom (Bld) N/A [facility] RBC morphologyOrdered By: William Melo on 03-30-2024 RBC morphology finding Nom (Bld) N/A [facility] Scan and CBCon 03-30-2024 Acanthocytes Slight Normal [facility] Comment on above: Performed By: #### C K, BNP, HS TROP, PTT, PT #### [address] Crenated RBC Slight Normal [facility] Comment on above: Performed By: #### C K, BNP, HS TROP, PTT, PT #### [address] Helmet Cells Slight Normal [facility] Comment on above: Performed By: #### C K, BNP, HS TROP, PTT, PT #### [address] Hypochromasia Marked Normal [facility] Comment on above: Performed By: #### C K, BNP, HS TROP, PTT, PT #### [address] Mean Corpuscular HGB Conc 30.0 g/dL Low 32.0-35.0 [facility] Comment on above: Performed By: #### C K, BNP, HS TROP, PTT, PT #### [address] Microcytosis Marked Normal [facility] Comment on above: Performed By: #### C K, BNP, HS TROP, PTT, PT #### [address] NRBC% 0.0 /100{WBC} Normal 0-0.5 [facility] Comment on above: Performed By: #### C K, BNP, HS TROP, PTT, PT #### [address] Ovalocytes Slight Normal [facility] Comment on above: Performed By: #### C K, BNP, HS TROP, PTT, PT #### [address] Platelet Estimate Normal Normal Normal [facility] Comment on above: Performed By: #### C K, BNP, HS TROP, PTT, PT #### [address] Platelet Morphology Normal Normal Normal [facility] Comment on above: Result Comment: PERF ORMED BY: [place] [address] PATHOLOGIST NARCOTICS AND/OR VICE DETECTIVE LILIANA CLAY M.D. Performed By: #### C K, BNP, HS TROP, PTT, PT #### [address] Poikilocytosis Moderate Normal [facility] Comment on above: Performed By: #### C K, BNP, HS TROP, PTT, PT #### [address] Polychromasia Marked Normal [facility] Comment on above: Performed By: #### C K, BNP, HS TROP, PTT, PT #### [address] Target Cells Slight Normal [facility] Comment on above: Performed By: #### C K, BNP, HS TROP, PTT, PT #### [address] Schistocytes [Presence] in B lood by Light microscopyOrdered By: Pedro Melo on 03-30-2024 Schistocytes LM Ql (Bld) Slight [facility] Serum or plasma anion gap de terminationOrdered By: Kristyn Russell on 03-30-2024 Anion gap [Moles/Vol] 13.0 mmol/L Normal 6.0-15.0 [facility] Comment on above: Performed By: #### M G, TSH3, FE and TIBC, LIPID, SCAN CBC, NEHAL, BMP #### [facility] [address] [place] [address] Serum or plasma anion gap de terminationOrdered By: Pedro Melo on 03-30-2024 Anion gap [Moles/Vol] 12.4 mmol/L Normal 6.0-15.0 [facility] Comment on above: Performed By: #### C K, BNP, HS TROP, PTT, PT #### [address] Serum or plasma high density lipoprotein (HDL) cholesterol measurementOrdered By: Kristyn Russell on 03-30-2024 Cholesterol in HDL [Mass/Vol] 39 mg/dL Normal 23-92 [facility] Comment on above: HDL CHOL ATP-III CLA SSIFICATION Cardiovascular RiskHDL > or equal to 60 mg/dL LOWHDL < 40 mg/dL HIGH Result Comment: HDL CHOL ATP-III CLASSIFICATION Cardiovascular Risk HDL > or equal to 60 mg/dL LOW HDL < 40 mg/dL HIGH Performed By: #### C K, BNP, HS TROP, PTT, PT #### [facility] [address] [place] [address] Serum or plasma total choles terol/high density lipoprotein (HDL) cholesterol mass ratOrdered By: Kristyn Russell on 03-30-2024 Cholesterol.total/Chol esterol in HDL [Mass ratio] 2.3 {ratio} Normal <5.0 [facility] Comment on above: Performed By: #### C K, BNP, HS TROP, PTT, PT #### [address] Sodium [Moles/volume] in Ser um or PlasmaOrdered By: Kristyn Russell on 03-30-2024 Sodium [Moles/Vol] 136 mmol/L Normal 136-145 [facility] Comment on above: Performed By: #### M G, TSH3, FE and TIBC, LIPID, SCAN CBC, NEHAL, BMP #### [facility] [address] [place] [address] [place] Sodium [Moles/volume] in Ser um or PlasmaOrdered By: ePdro Melo on 03-30-2024 Sodium [Moles/Vol] 137 mmol/L Normal 136-145 [facility] Comment on above: Performed By: #### C K, BNP, HS TROP, PTT, PT #### [facility] [address] Specific gravity Test strip (U) [Rel density]Ordered By: Pedro Melo on 03-30-2024 Specific gravity (U) [Rel density] 1.016 1.001-1.03 0 [facility] Target cellsOrdered By: Aram Russell on 03-30-2024 Target cells LM Ql (Bld) Slight [facility] Target cellsOrdered By: Isai Melo on 03-30-2024 Target cells LM Ql (Bld) Slight [facility] Teardrop cell detectionOrder ed By: Pedro Melo on 03-30-2024 Dacrocytes LM Ql (Bld) Slight [facility] Thyrotropin [Units/volume] i n Serum or PlasmaOrdered By: Kristyn Russell on 03-30-2024 TSH Qn 5.94 m[IU]/L High 0.45-5.33 [facility] Comment on above: Result Comment: PERF ORMED BY: [place] [address] PATHOLOGIST NARCOTICS AND/OR VICE DETECTIVE LILIANA CLAY M.D. Performed By: #### C K, BNP, HS TROP, PTT, PT #### [facility] [address] [place] [address] [place] Transferrin [Mass/volume] in Serum or PlasmaOrdered By: Kristyn Russell on 03-30-2024 Transferrin [Mass/Vol] 366 mg/dL High 203-362 [facility] Comment on above: Performed By: #### M G, TSH3, FE and TIBC, LIPID, SCAN CBC, NEHAL, BMP #### [facility] [address] Triglyceride [Mass/volume] i n Serum or PlasmaOrdered By: Kristyn Russell on 03-30-2024 Triglyceride [Mass/Vol] 59 mg/dL 0-149 [facility] Comment on above: TRIG ATP III CLASSIF ICATIONTRIG less than 150 mg/dL NormalTRIG 150-199 mg/dL Borderline highTRIG 200-500 mg/dL High TRIG greater than 500 mg/dL Very highStandard traceable to the Center for Disease Conrtrol and Prevention (CDC) test method. Troponin I High Sensitivityo n 03-30-2024 Troponin I High Sensitivity 15.4 pg/mL High 0.0-15.0 [facility] Comment on above: Result Comment: PERF ORMED BY: [place] [address] PATHOLOGIST NARCOTICS AND/OR VICE DETECTIVE LILIANA CLAY M.D. Performed By: #### C K, BNP, HS TROP, PTT, PT #### [address] Troponin I High Sensitivity 17.5 pg/mL High 0.0-15.0 [facility] Comment on above: Result Comment: PERF ORMED BY: [place] [address] PATHOLOGIST NARCOTICS AND/OR VICE DETECTIVE LILIANA CLAY M.D. Performed By: #### C K, BNP, HS TROP, PTT, PT #### [address] Troponin I High Sensitivity 14.0 pg/mL Normal 0.0-15.0 [facility] Comment on above: Result Comment: PERF ORMED BY: [place] [address] PATHOLOGIST NARCOTICS AND/OR VICE DETECTIVE LILIANA CLAY M.D. Performed By: #### C K, BNP, HS TROP, PTT, PT #### [address] Troponin I.cardiac [Mass/vol ume] in Serum or Plasma by Detection limit <= 0.01 ng/Ordered By: Kendrick Jorgensen on 03-30-2024 Troponin I.cardiac DL <= 0.01 ng/mL [Mass/Vol] 15.4 pg/mL High 0.0-15.0 [facility] Troponin I.cardiac [Mass/vol ume] in Serum or Plasma by Detection limit <= 0.01 ng/Ordered By: Pedro Melo on 03-30-2024 Troponin I.cardiac DL <= 0.01 ng/mL [Mass/Vol] 14.0 pg/mL 0.0-15.0 [facility] Urea nitrogen [Mass/volume] in Serum or PlasmaOrdered By: Kristyn Russell on 03-30-2024 Urea nitrogen [Mass/Vol] 25 mg/dL Normal 03-23 [facility] Comment on above: Performed By: #### M G, TSH3, FE and TIBC, LIPID, SCAN CBC, NEHAL, BMP #### [facility] [address] [place] [address] [place] Urea nitrogen [Mass/volume] in Serum or PlasmaOrdered By: Pedro Melo on 03-30-2024 Urea nitrogen [Mass/Vol] 27 mg/dL High 03-23 [facility] Comment on above: Performed By: #### C K, BNP, HS TROP, PTT, PT #### [place] [id number] [place] Urinalysison 03-30-2024 Bilirubin,Urine Negative Normal Negative [facility] Comment on above: Order Comment: Name Collection Type:: Clean-Voided Midstream Performed By: #### C K, BNP, HS TROP, PTT, PT #### [facility] [address] [place] [address] [place] Glucose Ql (U) Normal Normal Normal [facility] Comment on above: Order Comment: Name Collection Type:: Clean-Voided Midstream Performed By: #### C K, BNP, HS TROP, PTT, PT #### [facility] [address] [place] [id number] [place] Nitrite,Urine Negative Normal Negative [facility] Comment on above: Order Comment: Name Collection Type:: Clean-Voided Midstream Performed By: #### C K, BNP, HS TROP, PTT, PT #### [address] Occult Blood,Urine Trace High Negative [facility] Comment on above: Order Comment: Name Collection Type:: Clean-Voided Midstream Result Comment: PERF ORMED BY: [place] [address] PATHOLOGIST NARCOTICS AND/OR VICE DETECTIVE LILIANA CLYA M.D. Performed By: #### C K, BNP, HS TROP, PTT, PT #### [address] Protein,Urine Negative Normal Negative [facility] Comment on above: Order Comment: Name Collection Type:: Clean-Voided Midstream Performed By: #### C K, BNP, HS TROP, PTT, PT #### [address] Specificy [place],Urine 1.016 Normal 1.001-1.03 0 [facility] Comment on above: Order Comment: Name Collection Type:: Clean-Voided Midstream Performed By: #### C K, BNP, HS TROP, PTT, PT #### [address] Urobilinogen,Urine Normal Normal Normal [facility] Comment on above: Order Comment: Name Collection Type:: Clean-Voided Midstream Performed By: #### C K, BNP, HS TROP, PTT, PT #### [address] Urine Cultureon 03-30-2024 Bacteria identified Cx Nom (U) ORGANISM: Proteus mirabilis (O:PROMIR) [place] Count >100,000 Aerobic RAFAEL Charge ([id number]) SUSCEPTIBILITY ORGANISM: O:PROMIR ANTIBIOTIC INTERPRETATION RAFAEL Amikacin S <16 Amoxacillin/K Clavulanate S <8 Ampicillin S <8 Ampicillin/Sulbactam S <4 Aztreonam S <4 Cefazolin S <2 Cefepime S <2 Ceftazidime S <1 Ceftazidime/Avibactam S <4 Ceftolozane/Tazobactam S <2 Ceftriaxone S <1 Cefuroxime S <4 Ciprofloxacin S <0.25 Ertapenem S <0.5 Gentamicin S <2 Levofloxacin S <0.5 Meropenem S <1 Meropenem/Vaborbactam S <2 Piperacillin/Tazobactam S <8 Tobramycin S <2 Trimethoprim/Sulfamethoxa zole S <0.5 S = SUSCEPTIBLE I = INTERMEDIATE R = RESISTANT BLANK = DATA NOT AVAILABLE, OR DRUG NOT ADVISABLE OR TESTED R* = RESISTANCE DUE TO EXTENDED SPECTRUM BETA-LACTAMASES ESBL = EXTENDED SPECTRUM BETA-LACTAMASE TFG = THYMIDINE-DEPENDENT STRAIN ERIC = BETA-LACTAMASE POSITIVE IB = INDUCIBLE BETA-LACTAMASE. APPEARS IN PLACE OF 'S' WITH SPECIES KNOWN TO POSSESS INDUCIBLE BETA-LACTAMASES. POTENTIALLY THEY MAY BECOME RESISTANT TO ALL B-LACTAM DRUGS. PERFORMED BY: [place] [address] PATHOLOGIST NARCOTICS AND/OR VICE DETECTIVE LILIANA CLAY M.D. Normal [facility] Comment on above: Performed By: #### C K, BNP, HS TROP, PTT, PT #### [place] [address] [place] Urine appearanceOrdered By: Pedro Melo on 03-30-2024 Appearance (U) Clear Normal Clear [facility] Comment on above: Order Comment: Name Collection Type:: Clean-Voided Midstream Performed By: #### C K, BNP, HS TROP, PTT, PT #### [place] [address] [place] Urobilinogen Test strip (U) [Mass/Vol]Ordered By: Pdero Melo on 03-30-2024 Urobilinogen (U) [Mass/Vol] Normal mg/dL Normal [facility] XR chest 2V*on 03-30-2024 XR chest 2V* [facility] [place] [address] [place] [address] XRay Report Signed Patient: Essence Vincent MR#: [id number] : 1970 Acct:[id number] Age/Sex: 53 / F ADM Date: 03/30/24 Loc: Room: 5Q7855-9 Type: ADM INOo Attending Dr: Patrica Mcmahon MD Copies to: DO Patrica Javed MD Ordering Provider: Pedro Melo DO Date of Service: 03/29/24 XR/XR chest 2V*: Chest Pain Plain film chest 2 view HISTORY: Chest pain. COMPARISON: 01/24/2024 FINDINGS: SUPPORT DEVICES: None POSTSURGICAL CHANGES: Cardiac device remains intact. Cardiac valve replacement changes and sternotomy redemonstrated. HEART: Continued cardiomegaly PULMONARY JANAY: Mild hilar vascular prominence. MEDIASTINUM: Unremarkable LUNGS AND PLEURA: Perihilar and basilar groundglass parenchymal density. Consider interstitial pulmonary edema. There are minimal blunting of costophrenic angles. No pneumothorax. BONY STRUCTURES: Intact ADDITIONAL FINDINGS None XR/XR chest 2V* IMPRESSION: Findings consistent with failure. Impression dictated by: Christopher Walker M.D.03/30/2024 8:11 AM Dictation Location: [place] [address] Transcribed By: [facility] 03/30/24 08 Dictated By: Christopher Walker DO 03/30/24 08 Signed By: 03/30/24 0811 Normal [facility] pH of Urine by Test stripOrd ered By: Pedro Melo on 03-30-2024 pH (U) 6.5 [pH] Normal 5.0-9.0 [facility] Comment on above: Order Comment: Name Collection Type:: Clean-Voided Midstream Performed By: #### C K, BNP, HS TROP, PTT, PT #### [place] [address] [place] ECG 12 lead ECGon 03-29-2024 ECG 12 lead ECG [facility] [place] [address] [place] [address] Electrocardiograph Report Signed Patient: Essence Vincent MR#: [id number] : 1970 Acct:[id number] Age/Sex: 53 / F ADM Date: 03/29/24 Loc: ER Room: Type: [facility] ER Attending Dr: Ordering Provider: Pedro Melo DO Date of Service: 03/29/24 ECG/ECG 12 lead ECG: Chest Pain Copies to: Test Reason : Blood Pressure : 178/81 mmHG Vent. Rate : 84 BPM Atrial Rate : 84 BPM P-R Int : 182 ms QRS Dur : 114 ms QT Int : 434 ms P-R-T Axes : -14 -59 100 degrees QTcB Int : 512 ms sinus rhythm with intermittent paced beats Confirmed by Pedro MELO DO ([id number]) on 03/30/2024 1:41:19 AM Referred By: Electronically Signed By: Pedro MELO DO Transcribed By: MUS Signed By Pedro Melo DO 0 03/30/24 0141 Normal [facility] Basophils Auto (Bld) [#/Vol] on 02-17-2024 Basophils (Bld) [#/Vol] 0.2 10 3/uL High 0.0-0.1 [facility] Basophils/100 WBC Auto (Bld) on 02-17-2024 Basophils/100 WBC (Bld) 1.7 % 0.2-2.0 [facility] Eosinophils/100 WBC Auto (Bl d)on 02-17-2024 Eosinophils/100 WBC (Bld) 0.9 % 0.9-7.0 [facility] Erythrocyte distribution wid th Auto (RBC) [Ratio]on 02-17-2024 Erythrocyte distribution width (RBC) [Ratio] 21.2 % High 11.0-15.0 [facility] Estimated glomerular filtrat ion rate (GFR) non- Americanon 02-17-2024 GFR/1.73 sq M.predicted among non-blacks MDRD (S/P/Bld) [Vol rate/Area] 50 mL/min/{1.73_m2} Low >=60 [facility] Globulin Calc (S) [Mass/Vol] on 02-17-2024 Globulin (S) [Mass/Vol] 4.3 g/dL [facility] Hematocrit Auto (Bld) [Volum e fraction]on 02-17-2024 Hematocrit (Bld) [Volume fraction] 34.1 % Low 36.0-48.0 [facility] Hemoglobin [Mass/volume] in Bloodon 02-17-2024 Hemoglobin (Bld) [Mass/Vol] 9.6 g/dL Low 12.0-16.0 [facility] INR in Platelet poor plasma by Coagulation assayon 02-17-2024 INR Coag (PPP) [Relative time] 2.68 {INR} [facility] Comment on above: DESIRED INR:2.0-3.0 CONDITIONS NOT LISTED BELOW2.5-3.5 FOR PROSTHETIC HEART VALVE REPLACEMENT2.5-3.5 RECURRENT THROMBOSIS Laboratory - Chemistry and C hemistry - challengeon 02-17-2024 Albumin [Mass/Vol] 3.6 g/dL 3.4-5.0 [facility] ALP [Catalytic activity/Vol] 347 U/L High 46-116 [facility] ALT [Catalytic activity/Vol] 26 U/L 14-59 [facility] AST [Catalytic activity/Vol] 43 U/L High 15-37 [facility] Bilirubin [Mass/Vol] 0.8 mg/dL 0.2-1.0 [facility] Calcium [Mass/Vol] 8.9 mg/dL 8.5-10.1 [facility] Chloride [Moles/Vol] 100 mmol/L 98-107 [facility] CO2 [Moles/Vol] 24.8 mmol/L 21.0-32.0 [facility] Creatinine [Mass/Vol] 1.13 mg/dL High 0.55-1.[address] [facility] GFR/1.73 sq M.predicted MDRD (S/P/Bld) [Vol rate/Area] mL/min/{1.73_m2} >=60 [facility] Glucose [Mass/Vol] 112 mg/dL High 74-106 [facility] Potassium [Moles/Vol] 3.6 mmol/L 3.5-5.[address] [facility] Protein [Mass/Vol] 7.9 g/dL 6.4-8.2 [facility] Sodium [Moles/Vol] 134 mmol/L Low 136-145 [facility] Urea nitrogen [Mass/Vol] 21.0 mg/dL High 7.0-18.0 [facility] Urea nitrogen/Creatinine [Mass ratio] 18.6 mg/mg [facility] Laboratory - Hematology and Cell countson 02-17-2024 Immature granulocytes/100 WBC (Bld) 0.2 % 0.0-0.5 [facility] Leukocytes [#/volume] correc janis for nucleated erythrocytes in Blood by Automated counon 02-17-2024 WBC corrected for nucl RBC Auto (Bld) [#/Vol] 8.9 10 3/uL 4.0-11.0 [facility] Lymphocytes Auto (Bld) [#/Vo l]on 02-17-2024 Lymphocytes (Bld) [#/Vol] 1.8 10 3/uL 1.2-3.8 [facility] Lymphocytes/100 WBC Auto (Bl d)on 02-17-2024 Lymphocytes/100 WBC (Bld) 20.1 % Low 20.5-60.0 [facility] MCH Auto (RBC) [Entitic mass ]on 02-17-2024 MCH (RBC) [Entitic mass] 19.1 pg Low 26.7-34.0 [facility] MCHC Auto (RBC) [Mass/Vol]on 02-17-2024 MCHC (RBC) [Mass/Vol] 28.2 g/dL Low 29.9-35.[address] [facility] MCV Auto (RBC) [Entitic vol] on 02-17-2024 MCV (RBC) [Entitic vol] 67.8 fL Low 81.0-99.0 [facility] Monocytes Auto (Bld) [#/Vol] on 02-17-2024 Monocytes (Bld) [#/Vol] 1.0 10 3/uL High 0.3-0.8 [facility] Monocytes/100 WBC Auto (Bld) on 02-17-2024 Monocytes/100 WBC (Bld) 10.9 % 1.7-12.0 [facility] Neutrophils Auto (Bld) [#/Vo l]on 02-17-2024 Neutrophils (Bld) [#/Vol] 5.9 10 3/uL 1.4-6.5 [facility] Neutrophils/100 WBC Auto (Bl d)on 02-17-2024 Neutrophils/100 WBC (Bld) 66.2 % 43.0-75.0 [facility] No Panel Informationon 02-16 Eosinophils # (Auto) 0.1 10 3/uL 0.0-0.[address] [facility] Immature Granulocyte # (Auto) 0.02 10 3/uL 0.00-0.03 [facility] Troponin I High Sensitivity 24.6 pg/mL 4.0-51.3 [facility] Comment on above: CUT-OFF POINTS HAVE BEEN ESTABLISHED BASED ON THE FOURTHUNIVERSAL DEFINITION OF MYOCARDIAL INFARCTION. THE UPPERREFERENCE LIMIT (URL) OF TROPONIN, DEFINED THE 99THPERCENTILE OF cTnI DISTRIBUTION IN A REFERENCE POPULATION,HAS BEEN CONFIRMED THE DECISION THRESHOLD FOR MIDIAGNOSIS.99TH PERCENTILE = 51.4 PG/MLNOTE: HIGH-SENSITIVITY TROPONIN ASSAY IS NOT INTENDED TO BEUSED IN ISOLATION BUT SHOULD BE INTERPRETED IN CONJUNCTIONWITH OTHER DIAGNOSTIC AND CLINICAL INFORMATION. Platelet mean volume Auto (B ld) [Entitic vol]on 02-17-2024 Platelet mean volume (Bld) [Entitic vol] 10.5 fL 9.5-13.5 [facility] Platelets Auto (Bld) [#/Vol] on 02-17-2024 Platelets (Bld) [#/Vol] 289 10 3/uL 150-450 [facility] Prothrombin time (PT)on 01-29 PT Coag (PPP) [Time] 25.8 s High 9.0-11.6 [facility] RBC Auto (Bld) [#/Vol]on RBC (Bld) [#/Vol] 5.03 10 6/uL 4.20-5.40 [facility] Serum or plasma albumin/glob ulin mass ratioon 02-17-2024 Albumin/Globulin [Mass ratio] 0.8 {ratio} [facility] Serum or plasma anion gap de terminationon 02-17-2024 Anion gap [Moles/Vol] 12.8 mmol/L [facility] Activated partial thrombopla stin time (aPTT) in platelet poor plasma by coagulation aOrdered By: Tanner Mae on 01-24-2024 aPTT Coag (PPP) [Time] 19.2 s Low 25.1-36.5 [facility] Comment on above: A hematocrit value g reater than 55% may lead to inaccurate results in coagulation testing. Patients having hematocrit values >55% require a special collection tube for coagulation studies. Please contact the laboratory at [phone] for redraw instructions. Alanine aminotransferase [En zymatic activity/volume] in Serum or PlasmaOrdered By: Tanner Mae on 01-24-2024 ALT [Catalytic activity/Vol] 14 U/L Normal 7-52 [facility] Comment on above: Performed By: #### C K, BNP, HS TROP, PTT, PT #### [address] Albumin [Mass/volume] in Ser um or Plasma by Bromocresol green (BCG) dye binding methoOrdered By: Tanner Mae on 01-24-2024 Albumin BCG dye [Mass/Vol] 3.6 g/dL 3.5-5.7 [facility] Alkaline phosphatase [Enzyma tic activity/volume] in Serum or PlasmaOrdered By: Tanner Mae on 01-24-2024 ALP [Catalytic activity/Vol] 200 U/L High 34-104 [facility] Comment on above: Performed By: #### C K, BNP, HS TROP, PTT, PT #### [facility] [address] [place] [address] Anisocytosis [Presence] in B lood by Light microscopyOrdered By: Tanner Mae on 01-24-2024 Anisocytosis Ql (Bld) Slight Normal [facility] Comment on above: Performed By: #### C K, BNP, HS TROP, PTT, PT #### [facility] [address] [place] [address] Aspartate aminotransferase [ Enzymatic activity/volume] in Serum or PlasmaOrdered By: Tanner Mae on 01-24-2024 AST [Catalytic activity/Vol] 35 U/L Normal 13-39 [facility] Comment on above: Performed By: #### C K, BNP, HS TROP, PTT, PT #### [place] [id number] [place] BNP ser/plasOrdered By: Brett Mae on 01-24-2024 Natriuretic peptide B (Bld) [Mass/Vol] 265.0 pg/mL High 5-100 [facility] Comment on above: Result Comment: PERF ORMED BY: [place] [id number] PATHOLOGIST NARCOTICS AND/OR VICE DETECTIVE LILIANA CLAY M.D. Performed By: #### C K, BNP, HS TROP, PTT, PT #### [address] Basophils Auto (Bld) [#/Vol] Ordered By: Tanner Mae on 01-24-2024 Basophils (Bld) [#/Vol] N/A [facility] Basophils/100 WBC Auto (Bld) Ordered By: Tanner Mae on 01-24-2024 Basophils/100 WBC (Bld) N/A [facility] Basophils/100 leukocytes in Blood by Manual countOrdered By: Tanner Mae on 01-24-2024 Basophils/100 WBC (Bld) 1 % Normal 0-2 [facility] Comment on above: Performed By: #### C K, BNP, HS TROP, PTT, PT #### [facility] [address] [place] [address] Bilirubin.total [Mass/volume ] in Serum or PlasmaOrdered By: Tanner Mae on 01-24-2024 Bilirubin [Mass/Vol] 0.4 mg/dL Normal 0.3-1.0 [facility] Comment on above: Performed By: #### C K, BNP, HS TROP, PTT, PT #### [facility] [address] [place] [address] Jonah cells [Presence] in Blo od by Light microscopyOrdered By: Tanner Mae on 01-24-2024 [place] cells LM Ql (Bld) Slight Fi [facility] Calcium [Mass/volume] in Ser um or PlasmaOrdered By: Tanner Mae on 01-24-2024 Calcium [Mass/Vol] 8.7 mg/dL Normal 8.6-10.3 [facility] Comment on above: Performed By: #### C K, BNP, HS TROP, PTT, PT #### [address] Carbon dioxide, total [Moles /volume] in Serum or PlasmaOrdered By: Tanner Mae on 01-24-2024 CO2 [Moles/Vol] 23.7 mmol/L Normal 21.0-31.0 [facility] Comment on above: Performed By: #### C K, BNP, HS TROP, PTT, PT #### [address] Chloride [Moles/volume] in S daisy or PlasmaOrdered By: Tanner Mae on 01-24-2024 Chloride [Moles/Vol] 109 mmol/L High 98-107 [facility] Comment on above: Performed By: #### C K, BNP, HS TROP, PTT, PT #### [address] Comprehensive Metabolic Pane siddharth 01-24-2024 Albumin [Mass/Vol] 3.6 g/dL Normal 3.5-5.7 [facility] Comment on above: Performed By: #### C K, BNP, HS TROP, PTT, PT #### [place] [address] [place] Creatinine Clr Calc Pharmacy 54.24 Normal [facility] Comment on above: Result Comment: PERF ORMED BY: [place] [address] PATHOLOGIST NARCOTICS AND/OR VICE DETECTIVE LILIANA CLAY M.D. Performed By: #### C K, BNP, HS TROP, PTT, PT #### [place] [address] [place] GFR/1.73 sq M.predicted MDRD (S/P/Bld) [Vol rate/Area] mL/min/{1.73_m2} Normal [facility] Comment on above: Performed By: #### C K, BNP, HS TROP, PTT, PT #### [place] [address] [place] Creatine Kinaseon 01-24-2024 Creatine Kinase Normal 30-223 [facility] Comment on above: Result Comment: Unac ceptable specimen due to HEMOLYSIS. Redraw reordered. Performed By: #### C K, BNP, HS TROP, PTT, PT #### [address] Creatine kinase [Enzymatic a ctivity/volume] in Serum or PlasmaOrdered By: Tanner Mae on 01-24-2024 CK [Catalytic activity/Vol] 45 U/L Normal 30 [facility] Comment on above: Order Comment: REDRA W Result Comment: PERF ORMED BY: [place] [address] PATHOLOGIST NARCOTICS AND/OR VICE DETECTIVE LILIANA CLAY M.D. Performed By: #### C K, BNP, HS TROP, PTT, PT #### [address] Creatinine [Mass/volume] in Serum or PlasmaOrdered By: Tanner Mae on 01-24-2024 Creatinine [Mass/Vol] 1.00 mg/dL Normal 0.60-1.[address] [facility] Comment on above: Performed By: #### C K, BNP, HS TROP, PTT, PT #### [address] Diff and CBCon 01-24-2024 Crenated RBC Slight Normal [facility] Comment on above: Performed By: #### C K, BNP, HS TROP, PTT, PT #### [address] Hypochromasia Moderate Normal [facility] Comment on above: Performed By: #### C K, BNP, HS TROP, PTT, PT #### [address] Macrocytosis Slight Normal [facility] Comment on above: Performed By: #### C K, BNP, HS TROP, PTT, PT #### [address] Mean Corpuscular HGB Conc 30.1 g/dL Low 32.0-35.0 [facility] Comment on above: Performed By: #### C K, BNP, HS TROP, PTT, PT #### [address] Microcytosis Slight Normal [facility] Comment on above: Performed By: #### C K, BNP, HS TROP, PTT, PT #### [address] Monocytes/100 WBC (Bld) 18.17 % Normal 0.00-20.00 [facility] Comment on above: Performed By: #### C K, BNP, HS TROP, PTT, PT #### [address] Ovalocytes Slight Normal [facility] Comment on above: Performed By: #### C K, BNP, HS TROP, PTT, PT #### [address] Platelet Estimate Normal Normal Normal [facility] Comment on above: Performed By: #### C K, BNP, HS TROP, PTT, PT #### [address] Platelet Morphology Normal Normal Normal [facility] Comment on above: Result Comment: PERF ORMED BY: [place] [address] PATHOLOGIST NARCOTICS AND/OR VICE DETECTIVE LILIANA CLAY M.D. Performed By: #### C K, BNP, HS TROP, PTT, PT #### [address] Poikilocytosis Moderate Normal [facility] Comment on above: Performed By: #### C K, BNP, HS TROP, PTT, PT #### [address] Polychromasia Slight Normal [facility] Comment on above: Performed By: #### C K, BNP, HS TROP, PTT, PT #### [address] Stomatocytes Slight Normal [facility] Comment on above: Performed By: #### C K, BNP, HS TROP, PTT, PT #### [facility] [address] Target Cells Slight Normal [facility] Comment on above: Performed By: #### C K, BNP, HS TROP, PTT, PT #### [facility] [address] Tear Drop Cells Slight Normal [facility] Comment on above: Performed By: #### C K, BNP, HS TROP, PTT, PT #### [facility] [address] ECG 12 lead ECGon 01-24-2024 ECG 12 lead ECG [facility] [place] [address] [place] [address] Electrocardiograph Report Signed Patient: Essence Vincent MR#: [id number] : 1970 Acct:[id number] Age/Sex: 53 / F ADM Date: 01/24/24 Loc: ER Room: Type: [facility] ER Attending Dr: Ordering Provider: Tanner [...] Atrial flutter Confirmed by TANNER MAE MD ([id number]) on 01/25/2024 5:26:09 AM Referred By: Electronically Signed By:TANNER MAE MD Transcribed By: MUS Signed By Tanner Mae Jr, MD [id number] Normal [facility] Eosinophils Auto (Bld) [#/Vo l]Ordered By: Tanner Mae on 01-24-2024 Eosinophils (Bld) [#/Vol] N/A [facility] Eosinophils/100 WBC Auto (Bl d)Ordered By: Tanner Mae on 01-24-2024 Eosinophils/100 WBC (Bld) N/A [facility] Eosinophils/100 leukocytes i n Blood by Manual countOrdered By: Tanner Mae on 01-24-2024 Eosinophils/100 WBC (Bld) 1 % Normal 1-3 [facility] Comment on above: Performed By: #### C K, BNP, HS TROP, PTT, PT #### [address] Erythrocyte distribution wid th [Ratio] by Automated countOrdered By: Tanner Mae on 01-24-2024 Erythrocyte distribution width (RBC) [Ratio] 22.3 % High 11.9-15.3 [facility] Comment on above: Performed By: #### C K, BNP, HS TROP, PTT, PT #### [address] Erythrocytes [#/volume] in B lood by Automated countOrdered By: Tanner Mae on 01-24-2024 RBC (Bld) [#/Vol] 4.94 10*6/uL Normal 3.60-5.00 [facility] Comment on above: Performed By: #### C K, BNP, HS TROP, PTT, PT #### [address] Glucose [Mass/volume] in Ser um or PlasmaOrdered By: Tanner Mae on 01-24-2024 Glucose [Mass/Vol] 86 mg/dL Normal 70-100 [facility] Comment on above: ADA recommended refe rence rangeRandom Glucose Reference Range is dependent on time and content of last meal. Glucose of more than 200 mg/dL in a nonstressed, ambulatory subject supports the diagnosis of Diabetes Mellitus. Result Comment: [place] om Glucose Reference Range is dependent on time and content of last meal. Glucose of more than 200 mg/dL in a nonstressed, ambulatory subject supports the diagnosis of Diabetes Mellitus. ADA recommended reference range Performed By: #### C K, BNP, HS TROP, PTT, PT #### [address] Hematocrit [Volume Fraction] of Blood by Automated countOrdered By: Tanner Mae on 01-24-2024 Hematocrit (Bld) [Volume fraction] 32.3 % Low 34.0-46.4 [facility] Comment on above: Performed By: #### C K, BNP, HS TROP, PTT, PT #### [facility] [address] Hemoglobin [Mass/volume] in BloodOrdered By: Tanner Mae on 01-24-2024 Hemoglobin (Bld) [Mass/Vol] 9.7 g/dL Low 11.8-15.4 [facility] Comment on above: Performed By: #### C K, BNP, HS TROP, PTT, PT #### [facility] [address] [place] [address] Hypochromia LM Ql (Bld)Order ed By: Tanner Mae on 01-24-2024 Hypochromia Ql (Bld) Moderate [facility] INR in Platelet poor plasma by Coagulation assayOrdered By: Tanner Mae on 01-24-2024 INR Coag (PPP) [Relative time] 1.0 {INR} Normal [facility] Comment on above: INR Therapeutic [...] valves: 3 - 4.5 Performed By: #### C K, BNP, HS TROP, PTT, PT #### [address] Leukocytes [#/volume] correc janis for nucleated erythrocytes in Blood by Automated counOrdered By: Tanner Mae on 01-24-2024 WBC corrected for nucl RBC Auto (Bld) [#/Vol] 10.2 10*3/uL 3.8-11.6 [facility] Leukocytes [#/volume] in Blo od by Automated countOrdered By: Tanner Mae on 01-24-2024 WBC (Bld) [#/Vol] 10.2 10*3/uL Normal 3.8-11.6 [facility] Comment on above: Performed By: #### C K, BNP, HS TROP, PTT, PT #### [address] Lymphocytes Auto (Bld) [#/Vo l]Ordered By: Tanner Mae on 01-24-2024 Lymphocytes (Bld) [#/Vol] N/A [facility] Lymphocytes/100 WBC Auto (Bl d)Ordered By: Tanner Mae on 01-24-2024 Lymphocytes/100 WBC (Bld) N/A [facility] Lymphocytes/100 leukocytes i n Blood by Manual countOrdered By: Tanner Mae on 01-24-2024 Lymphocytes/100 WBC (Bld) 22 % Normal 18-42 [facility] Comment on above: Performed By: #### C K, BNP, HS TROP, PTT, PT #### [address] MCH [Entitic mass] by Automa janis countOrdered By: Tanner Mae on 01-24-2024 MCH (RBC) [Entitic mass] 19.7 pg Low 24.7-34.3 [facility] Comment on above: Performed By: #### C K, BNP, HS TROP, PTT, PT #### [address] MCHC Auto (RBC) [Mass/Vol]Or dered By: Tanner Mae on 01-24-2024 MCHC (RBC) [Mass/Vol] 30.1 g/dL Low 32.0-35.[address] [facility] MCV [Entitic volume] by Auto mated countOrdered By: Tanner Mae on 01-24-2024 MCV (RBC) [Entitic vol] 65.4 fL Low 80-100 [facility] Comment on above: Performed By: #### C K, BNP, HS TROP, PTT, PT #### [facility] [address] [place] [address] [place] Macrocytes LM Ql (Bld)Ordere d By: Tanner Mae on 01-24-2024 Macrocytes Ql (Bld) Slight [facility] Manual blood segmented neutr ophils/100 leukocytesOrdered By: Tanner Mae on 01-24-2024 Segmented neutrophils/100 WBC (Bld) 69 % Normal 50-70 [facility] Comment on above: Performed By: #### C K, BNP, HS TROP, PTT, PT #### [facility] [address] [place] [id number] [place] Microcytes LM Ql (Bld)Ordere d By: Tanner Mae on 01-24-2024 Microcytes Ql (Bld) Slight [facility] Monocyte distribution width [Entitic volume] in Blood by AutomatedOrdered By: Tanner Mae on 01-24-2024 Monocyte distribution width Auto (Bld) [Entitic vol] 18.17 % 0.00-20.00 [facility] Monocytes Auto (Bld) [#/Vol] Ordered By: Tanner Mae on 01-24-2024 Monocytes (Bld) [#/Vol] N/A [facility] Monocytes/100 WBC Auto (Bld) Ordered By: Tanner Mae on 01-24-2024 Monocytes/100 WBC (Bld) N/A [facility] Monocytes/100 leukocytes in Blood by Manual countOrdered By: Tanner Mae on 01-24-2024 Monocytes/100 WBC (Bld) 8 % Normal 2-11 [facility] Comment on above: Performed By: #### C K, BNP, HS TROP, PTT, PT #### [facility] [address] [place] [address] [place] Neutrophils Auto (Bld) [#/Vo l]Ordered By: Tanner Mae on 01-24-2024 Neutrophils (Bld) [#/Vol] N/A [facility] Neutrophils/100 WBC Auto (Bl d)Ordered By: Tanner Mae on 01-24-2024 Neutrophils/100 WBC (Bld) N/A [facility] No Panel InformationOrdered By: Tanner Mae on 01-24-2024 Estimated GFR (CKD-EPI) > 60.0 mL/Min [facility] Creatinine Clearance (Chem 54.24 [facility] Nucleated erythrocytes [Pres ence] in Blood by Automated countOrdered By: Tanner Mae on 01-24-2024 Nucleated RBC Auto Ql (Bld) N/A [facility] Ovalocyte detectionOrdered B y: Tanner Mae on 01-24-2024 Ovalocytes LM Ql (Bld) Slight Fi [facility] Partial Thromboplastin Timeo n 01-24-2024 aPTT Coag (Bld) [Time] 19.2 s Low 25.1-36.5 [facility] Comment on above: Result Comment: A he matocrit value greater than 55% may lead to inaccurate results in coagulation testing. Patients having hematocrit values >55% require a special collection tube for coagulation studies. Please contact the laboratory at [phone] for redraw instructions. PERFORMED BY: [place] [id number] PATHOLOGIST NARCOTICS AND/OR VICE DETECTIVE LILIANA CLAY M.D. Performed By: #### C K, BNP, HS TROP, PTT, PT #### [facility] [address] Platelet adequacy [Presence] in Blood by Light microscopyOrdered By: Tanner Mae on 01-24-2024 Platelets LM Ql (Bld) Normal Normal [facility] Platelet mean volume [Entiti c volume] in Blood by Automated countOrdered By: Tanner Mae on 01-24-2024 Platelet mean volume (Bld) [Entitic vol] 9.1 fL Normal 6.3-10.7 [facility] Comment on above: Performed By: #### C K, BNP, HS TROP, PTT, PT #### [facility] [address] Platelet morphology finding [Identifier] in BloodOrdered By: Tanner Mae on 01-24-2024 Platelet morphology finding Nom (Bld) Normal Normal [facility] Platelets [#/volume] in Bloo d by Automated countOrdered By: Tanner Mae on 01-24-2024 Platelets (Bld) [#/Vol] 214 10*3/uL Normal 150-450 [facility] Comment on above: Performed By: #### C K, BNP, HS TROP, PTT, PT #### [address] Poikilocytosis [Presence] in Blood by Light microscopyOrdered By: Tanner Mae on 01-24-2024 Poikilocytosis LM Ql (Bld) Moderate [facility] Polychromasia [Presence] in Blood by Light microscopyOrdered By: Tanner Mae on 01-24-2024 Polychromasia LM Ql (Bld) Slight [facility] Potassium [Moles/volume] in Serum or PlasmaOrdered By: Tanner Mae on 01-24-2024 Potassium [Moles/Vol] 3.5 mmol/L Normal 3.5-5.[address] [facility] Comment on above: Performed By: #### C K, BNP, HS TROP, PTT, PT #### [address] Protein [Mass/volume] in Ser um or PlasmaOrdered By: Tanner Mae on 01-24-2024 Protein [Mass/Vol] 6.6 g/dL Normal 6.4-8.9 [facility] Comment on above: Performed By: #### C K, BNP, HS TROP, PTT, PT #### [address] Prothrombin time (PT)Ordered By: Tanner Mae on 01-24-2024 PT Coag (PPP) [Time] 11.8 s Normal 9.0-12.9 [facility] Comment on above: A hematocrit value g reater than 55% may lead to inaccurate results in coagulation testing. Patients having hematocrit values >55% require a special collection tube for coagulation studies. Please contact the laboratory at [phone] for redraw instructions. Result Comment: A he matocrit value greater than 55% may lead to inaccurate results in coagulation testing. Patients having hematocrit values >55% require a special collection tube for coagulation studies. Please contact the laboratory at [phone] for redraw instructions. Performed By: #### C K, BNP, HS TROP, PTT, PT #### [place] [address] [place] RBC morphologyOrdered By: Isabella Mae on 01-24-2024 RBC morphology finding Nom (Bld) N/A [facility] Red blood cell stomatocyte d etectionOrdered By: Tanner Mae on 01-24-2024 Stomatocytes LM Ql (Bld) Slight [facility] Serum globulin measurement b y calculation (mass/volume)Ordered By: Tanner Mae on 01-24-2024 Globulin (S) [Mass/Vol] 3.0 g/dL Normal [facility] Comment on above: Performed By: #### C K, BNP, HS TROP, PTT, PT #### [facility] [address] [place] [address] Serum or plasma albumin/glob ulin mass ratioOrdered By: Tanner Mae on 01-24-2024 Albumin/Globulin [Mass ratio] 1.2 {ratio} [facility] Comment on above: Performed By: #### C K, BNP, HS TROP, PTT, PT #### [facility] [address] [place] [address] Serum or plasma anion gap de terminationOrdered By: Tanner Mae on 01-24-2024 Anion gap [Moles/Vol] 12.8 mmol/L Normal 6.0-15.0 [facility] Comment on above: Performed By: #### C K, BNP, HS TROP, PTT, PT #### [facility] [address] [place] [address] Sodium [Moles/volume] in Ser um or PlasmaOrdered By: Tanner Mae on 01-24-2024 Sodium [Moles/Vol] 142 mmol/L Normal 136-145 [facility] Comment on above: Performed By: #### C K, BNP, HS TROP, PTT, PT #### [facility] [address] [place] [address] Target cellsOrdered By: Brett Mae on 01-24-2024 Target cells LM Ql (Bld) Slight [facility] Teardrop cell detectionOrder ed By: Tanner Mae on 01-24-2024 Dacrocytes LM Ql (Bld) Slight [facility] Troponin I High Sensitivityo n 01-24-2024 Troponin I High Sensitivity 13.2 pg/mL Normal 0.0-15.0 [facility] Comment on above: Result Comment: PERF ORMED BY: [place] [address] PATHOLOGIST NARCOTICS AND/OR VICE DETECTIVE LILIANA CLAY M.D. Performed By: #### C K, BNP, HS TROP, PTT, PT #### [facility] [address] [place] [address] Troponin I.cardiac [Mass/vol ume] in Serum or Plasma by Detection limit <= 0.01 ng/Ordered By: Tanner Mae on 01-24-2024 Troponin I.cardiac DL <= 0.01 ng/mL [Mass/Vol] 13.2 pg/mL 0.0-15.0 [facility] Urea nitrogen [Mass/volume] in Serum or PlasmaOrdered By: Tanner Mae on 01-24-2024 Urea nitrogen [Mass/Vol] 23 mg/dL Normal 7-25 [facility] Comment on above: Performed By: #### C K, BNP, HS TROP, PTT, PT #### [facility] [address] [place] [address] XR chest 1V portableon 01-23 XR chest 1V portable [facility] [place] [address] [place] [address] XRay Report Signed Patient: Essence Vincent MR#: [id number] : 1970 Acct:[id number] Age/Sex: 53 / F ADM Date: 01/24/24 Loc: ER Room: Type: [facility] ER Attending Dr: Copies to: Tanner [...] are noted, as above. Impression dictated by: Franklni Couch M.D.01/24/2024 11:31 AM Dictation Location: [facility] Transcribed By: LINCOLN 01/24/24 1131 Dictated By: Franklin Couch II, MD 01/24/24 1130 Signed By: 01/24/24 1131 Normal [facility] BUN, POCon 01-04-2024 Urea nitrogen [Mass/Vol] 22 mg/dL Normal 8-26 [facility] Creatinine w/GFR, POCon Creatinine [Mass/Vol] 0.7 mg/dL Normal 0.51-1.19 [facility] GFR/1.73 sq M.predicted among non-blacks MDRD (S/P/Bld) [Vol rate/Area] mL/min/{1.73_m2} Normal [facility] Comment on above: Result Comment: These results [...] 01-04-2024 Glucose [Mass/Vol] 84 mg/dL Normal 74-100 [facility] Hgb/Hct, POCon 01-04-2024 Hematocrit (Bld) [Volume fraction] 40 % Normal 36-46 [facility] Hemoglobin (Bld) [Mass/Vol] 13.8 g/dL Normal 12.0-16.0 [facility] PT (Whole Blood)on 4 Intl. Normal. Ratio 1.1 Normal [facility] Comment on above: Result Comment: Therapeutic Range: Moderate Anticoagulant Intensity: INR = 2.0-3.0 High Anticoagulant Intensity: INR = 2.5-3.5 PT Coag (PPP) [Time] 13.5 s Normal 10.4-14.2 [facility] Potassium (POC)on 01-04-2024 Potassium [Moles/Vol] 3.3 mmol/L Low 3.5-4.5 [facility] Sodium (POC)on 01-04-2024 Sodium [Moles/Vol] 142 mmol/L Normal 138-146 [facility] Protime-INRon 10-12-2023 INR Coag (Bld) [Relative time] 2 {INR} [facility] PT Coag (PPP) [Time] 24.1 s seconds [facility] Protime-INRon 10-11-2023 INR Coag (Bld) [Relative time] 1.8 {INR} [facility] PT Coag (PPP) [Time] 21.1 s seconds [facility] Basic Metab w/rfx MGon 10-07 GFR/1.73 sq M.predicted among non-blacks MDRD (S/P/Bld) [Vol rate/Area] mL/min/{1.73_m2} Normal >60 [facility] Comment on above: Result Comment: These [...] renal tubular secretion. Performed By: #### C DP, BMPX, PT #### [facility] [address] [place] [address] Cost Accounting Manager: Mike Bill DO Potassium [Moles/Vol] 4.4 mmol/L Normal 3.7-5.3 [facility] Comment on above: Result Comment: SPEC IMEN SLIGHTLY HEMOLYZED, RESULTS MAY BE ADVERSELY AFFECTED. Performed By: #### C DP, BMPX, PT #### [facility] [address] [place] [address] Cost Accounting Manager: Mike Bill DO Anion gap [Moles/Vol] 12 mmol/L Normal 9-17 [facility] Comment on above: Performed By: #### C DP, BMPX, PT #### [facility] [address] [place] [address] Cost Accounting Manager: Mike Bill DO Calcium [Mass/Vol] 9.2 mg/dL Normal 8.6-10.4 [facility] Comment on above: Performed By: #### C BIANCA, BMPX, PT #### [facility] [address] [place] [address] Cost Accounting Manager: Mike Bill DO Chloride [Moles/Vol] 104 mmol/L Normal 98-107 [facility] Comment on above: Performed By: #### C BIANCA, BMPX, PT #### [facility] [address] [place] [address] Cost Accounting Manager: Mike Bill DO CO2 [Moles/Vol] 24 mmol/L Normal 20-31 [facility] Comment on above: Performed By: #### C BIANCA, BMPX, PT #### [facility] [address] [place] [address] Cost Accounting Manager: Mike Bill DO Creatinine [Mass/Vol] 1.0 mg/dL High 0.5-0.9 [facility] Comment on above: Performed By: #### C DP, BMPX, PT #### [facility] [address] [place] [address] Cost Accounting Manager: Mike Bill DO Glucose [Mass/Vol] 96 mg/dL Normal 70-99 [facility] Comment on above: Performed By: #### C DP, BMPX, PT #### [facility] [address] [facility] [place] [address] Cost Accounting Manager: Mike Bill DO Sodium [Moles/Vol] 140 mmol/L Normal 135-144 [facility] Comment on above: Performed By: #### C DP, BMPX, PT #### [facility] [address] [facility] [place] [address] Cost Accounting Manager: Mike Bill DO Urea nitrogen [Mass/Vol] 12 mg/dL Normal 6-20 [facility] Comment on above: Performed By: #### C BIANCA, BMPX, PT #### [facility] [address] [facility] [place] [address] Cost Accounting Manager: Mike Bill DO Basic Metabolic Panel w/ Ref sam to MGon 10-07-2023 Anion gap [Moles/Vol] 12 mmol/L 9 - 17 mmol/L [facility] [employer] Calcium [Mass/Vol] 9.2 mg/dL 8.6 - 10. 4 mg/dL [facility] [employer] Chloride [Moles/Vol] 104 mmol/L 98 - 10 7 mmol/L [facility] CO2 [Moles/Vol] 24 mmol/L 20 - 31 mmol/L [facility] [employer] Creatinine [Mass/Vol] 1.0 mg/dL High 0.5 - 0.9 mg/dL [facility] [employer] GFR/1.73 sq M.predicted MDRD (S/P/Bld) [Vol rate/Area] - PINF [facility] Comment on above: These results are [...] [Mass/Vol] 96 mg/dL 70 - 99 mg/dL [facility] Interpretation and review of laboratory results Abnormal [facility] Potassium [Moles/Vol] 4.4 mmol/L 3.7 - 5.3 mmol/L [facility] Comment on above: SPECIMEN SLIGHTLY HE MOLYZED, RESULTS MAY BE ADVERSELY AFFECTED. Sodium [Moles/Vol] 140 mmol/L 135 - 144 mmol/L [facility] Urea nitrogen [Mass/Vol] 12 mg/dL 6 - 20 mg/dL [facility] CBC with Diffon 10-07-2023 Abs. Basophil 0.16 k/uL Normal 0.0-0.2 [facility] Comment on above: Performed By: #### C BIANCA BMPX, PT #### [facility] [address] [place] [address] Cost Accounting Manager: Mike Bill DO Abs.Neutrophil (Seg) 5.03 k/uL Normal 1.3-9.1 [facility] Comment on above: Performed By: #### C BIANCA BMPX, PT #### [facility] [address] [place] [address] Cost Accounting Manager: Mike Bill DO Basophils/100 WBC (Bld) 2 % Normal 0-2 [facility] Comment on above: Performed By: #### C BIANCA BMPX, PT #### [facility] [address] [place] [address] Cost Accounting Manager: Mike Bill DO Eosinophils (Bld) [#/Vol] 0.08 10*3/uL Normal 0.0-0.4 [facility] Comment on above: Performed By: #### C BIANCA BMPX, PT #### [facility] [address] [place] [address] Cost Accounting Manager: Mike Bill DO Eosinophils/100 WBC (Bld) 1 % Normal 0-4 [facility] Comment on above: Performed By: #### C DP, BMPX, PT #### [facility] [address] [place] [address] Cost Accounting Manager: Mike Bill DO Lymphocytes (Bld) [#/Vol] 1.86 10*3/uL Normal 1.0-4.8 [facility] Comment on above: Performed By: #### C DP, BMPX, PT #### [facility] [address] [place] [address] Cost Accounting Manager: Mike Bill DO Lymphocytes/100 WBC (Bld) 23 % Low 24-44 [facility] Comment on above: Performed By: #### C DP, BMPX, PT #### [facility] [address] [employer] [facility] [place] [address] Cost Accounting Manager: Mike Bill DO Monocytes (Bld) [#/Vol] 0.97 10*3/uL Normal 0.1-1.3 [facility] Comment on above: Performed By: #### C BIANCA, BMPX, PT #### [facility] [address] [place] [employer] [facility] [place] [address] Cost Accounting Manager: Mike Bill DO Monocytes/100 WBC (Bld) 12 % High 1-7 [facility] Comment on above: Performed By: #### C BIANCA, BMPX, PT #### [facility] [address] [employer] [facility] [place] [address] Cost Accounting Manager: Mike Bill DO Morphology Jeffery (Bld) [Interp] MICROCYTOSIS PRESENT Normal [facility] Comment on above: Result Comment: HYPO CHROMIA PRESENT ANISOCYTOSIS PRESENT 1+ ACANTHOCYTES FEW ELLIPTOCYTES Performed By: #### C DP, BMPX, PT #### [facility] [address] [employer] [facility] [place] [address] Cost Accounting Manager: Mike Bill DO Neutrophil (Seg) 62 % Normal 36-66 [facility] Comment on above: Performed By: #### C DP, BMPX, PT #### [facility] [address] [place] [address] Cost Accounting Manager: Mike Bill DO Erythrocyte distribution width (RBC) [Ratio] 23.8 % High 11.5-14.9 [facility] Comment on above: Performed By: #### C DP, BMPX, PT #### [facility] [address] [place] [address] Cost Accounting Manager: Mike Bill DO Hematocrit (Bld) [Volume fraction] 33.8 % Low 36-46 [facility] Comment on above: Performed By: #### C DP, BMPX, PT #### [facility] [address] [place] [address] Cost Accounting Manager: Mike Bill DO Hemoglobin (Bld) [Mass/Vol] 9.6 g/dL Low 12.0-16.0 [facility] Comment on above: Performed By: #### C DP, BMPX, PT #### [facility] [address] [place] [address] Cost Accounting Manager: Mike Bill DO MCH (RBC) [Entitic mass] 18.1 pg Low 26-34 [facility] Comment on above: Performed By: #### C DP, BMPX, PT #### [facility] [address] [place] [address] Cost Accounting Manager: Mike Bill DO MCHC (RBC) [Mass/Vol] 28.5 g/dL Low 31-37 [facility] Comment on above: Performed By: #### C DP, BMPX, PT #### [facility] [address] [place] [address] Cost Accounting Manager: Mike Bill DO MCV (RBC) [Entitic vol] 63.5 fL Low 80-100 [facility] Comment on above: Performed By: #### C BIANCA BMPX, PT #### [facility] [address] [place] [address] Cost Accounting Manager: Mike Bill DO Platelet mean volume (Bld) [Entitic vol] 8.5 fL Normal 6.0-12.0 [facility] Comment on above: Performed By: #### C BIANCA, BMPX, PT #### [facility] [address] [place] [address] Cost Accounting Manager: Mike Bill DO Platelets (Bld) [#/Vol] 214 10*3/uL Normal 150-450 [facility] Comment on above: Performed By: #### C BIANCA BMPX, PT #### [facility] [address] [place] [address] Cost Accounting Manager: Mike Bill DO RBC (Bld) [#/Vol] 5.32 10*6/uL High 4.0-5.2 [facility] Comment on above: Performed By: #### C BIANCA BMPX, PT #### [facility] [address] [place] [address] Cost Accounting Manager: Mike Bill DO WBC (Bld) [#/Vol] 8.1 10*3/uL Normal 3.5-11.0 [facility] Comment on above: Performed By: #### C BIANCA BMPX, PT #### [facility] [address] [place] [address] Cost Accounting Manager: Mike Bill DO CBC with auto differentialon 10-07-2023 Basophils (Bld) [#/Vol] 0.16 10*3/uL [facility] Basophils/100 WBC (Bld) 2 % 0 - 2 % [facility] Eosinophils (Bld) [#/Vol] 0.08 10*3/uL [facility] Eosinophils/100 WBC (Bld) 1 % 0 - 4 % [facility] Erythrocyte distribution width (RBC) [Ratio] 23.8 % High 11.5 - 14.9 % [facility] Hematocrit (Bld) [Volume fraction] 33.8 % Low 36 - 46 % [facility] Hemoglobin (Bld) [Mass/Vol] 9.6 g/dL Low 12.0 - 16.0 g/dL [facility] Interpretation and review of laboratory results Abnormal [facility] Lymphocytes/100 WBC (Bld) 23 % Low 24 - 44 % [facility] Lymphocytes/100 WBC (Bld) 1.86 % [facility] MCH (RBC) [Entitic mass] 18.1 pg Low 26 - 34 pg [facility] MCHC (RBC) [Mass/Vol] 28.5 g/dL Low 31 - 3 7 g/dL [facility] MCV (RBC) [Entitic vol] 63.5 fL Low 80 - 100 fL [facility] Monocytes/100 WBC (Bld) 12 % High 1 - 7 % [facility] Monocytes/100 WBC (Bld) 0.97 % [facility] Morphology Jeffery (Bld) [Interp] MICROCYTOSIS PRESENT [facility] Morphology Jeffery (Bld) [Interp] HYPOCHROMIA PRESENT [facility] Morphology Jeffery (Bld) [Interp] ANISOCYTOSIS PRESENT [facility] Morphology Jeffery (Bld) [Interp] 1+ ACANTHOCYTES FEW ELLIPTOCYTES [facility] Neutrophils/100 WBC (Bld) 62 % 36 - 66 % [facility] Platelet mean volume (Bld) [Entitic vol] 8.5 fL 6.0 - 12.0 fL [facility] Platelets (Bld) [#/Vol] 214 10*3/uL [facility] RBC (Bld) [#/Vol] 5.32 10*6/uL High 4.0 - 5.2 m/uL [facility] Segmented neutrophils/100 WBC (Bld) 5.03 % [employer] WBC other (Bld) [#/Vol] 8.1 [employer] EKG 12 LeadOrdered By: Satish Whitman on 10-07-2023 Atrial Rate 80 BPM [employer] Work Phone: P Mineral 108 degrees [employer] Work Phone: [phone] P-R Interval 268 ms [employer] Work Phone: [phone] Q-T Interval 478 ms [employer] Work Phone: [phone] QRS Duration 206 ms [employer] Work Phone: [phone] QTc Calculation (Bazett) 551 ms [employer] Work Phone: [phone] R Mineral -72 degrees [employer] Work Phone: [phone] T Mineral 98 degrees [employer] Work Phone: Ventricular Rate 80 BPM [employer] Work Phone: [employer] Work Phone: EKG 12 Leadon 10-07-2023 AV dual-paced rhythm with prolonged AV conduction Abnormal ECG When compared with ECG of 05-OCT-2023 19:31, (unconfirmed) No significant change was found [facility] Satish Whitman MD - 10/07/2023 AV dual-paced rhythm with prolonged AV conduction Abnormal ECG When compared with ECG of 05-OCT-2023 19:31, (unconfirmed) No significant change was found [employer] PTon 10-07-2023 INR Coag (PPP) [Relative time] 1.1 {INR} Normal [facility] Comment on above: Result Comment: Therapeutic Range: Moderate Anticoagulant Intensity: INR = 2.0-3.0 High Anticoagulant Intensity: INR = 2.5-3.5 Performed By: #### C DP, BMPX, PT #### [facility] [address] [place] [address] Cost Accounting Manager: Mike Bill DO PT Coag (PPP) [Time] 14.9 s High 11.8-14.6 [facility] Comment on above: Performed By: #### C DP, BMPX, PT #### [facility] [address] [place] [address] Cost Accounting Manager: Mike Bill DO Protime-INRon 10-07-2023 INR Coag (PPP) [Relative time] 1.1 {INR} [facility] Comment on above: Therapeutic Range: Moderate Anticoagulant Intensity: INR = 2.0-3.0 High Anticoagulant Intensity: INR = 2.5-3.5 Interpretation and review of laboratory results Abnormal [facility] PT Coag (PPP) [Time] 14.9 s High [facility] Basic Metab w/rfx MGon 10-06 Potassium [Moles/Vol] 4.3 mmol/L Normal 3.7-5.3 [facility] Comment on above: Result Comment: SPEC IMEN MODERATELY HEMOLYZED, RESULTS MAY BE ADVERSELY AFFECTED Performed By: #### B MPX ####[facility] [id number] [place] [address] Lab Director: Mike Bill DO Anion gap [Moles/Vol] 14 mmol/L Normal 9-17 [facility] Comment on above: Performed By: #### B MPX ####[facility] [id number] [place] [address] Lab Director: Mike Bill DO Calcium [Mass/Vol] 9.0 mg/dL Normal 8.6-10.4 [facility] Comment on above: Performed By: #### B MPX ####[facility] [id number] [place] [address] Lab Director: Mike Bill DO Chloride [Moles/Vol] 95 mmol/L Low 98-107 [facility] Comment on above: Performed By: #### B MPX ####[facility] [id number] [place] [address] Lab Director: Mike Bill DO CO2 [Moles/Vol] 23 mmol/L Normal 20-31 [facility] Comment on above: Performed By: #### B MPX ####[facility] [id number] [facility] [place] [address] Lab Director: Mike Bill DO Creatinine [Mass/Vol] 1.2 mg/dL High 0.5-0.9 [facility] Comment on above: Performed By: #### B MPX ####[facility] [id number] [facility] [place] [address] Lab Director: Mike Bill DO GFR/1.73 sq M.predicted among non-blacks MDRD (S/P/Bld) [Vol rate/Area] 54 mL/min/{1.73_m2} Low >60 [facility] Comment on above: Result Comment: These [...] tubular secretion. Performed By: #### B MPX ####[facility] [id number] [facility] [place] [address] Lab Director: Mike Bill DO Glucose [Mass/Vol] 97 mg/dL Normal 70-99 [facility] Comment on above: Performed By: #### B MPX ####[facility] [id number] [facility] [place] [address] Lab Director: Mike Bill DO Sodium [Moles/Vol] 132 mmol/L Low 135-144 [facility] Comment on above: Performed By: #### B MPX ####[facility] [id number] [facility] [place] [address] lab Director: Mike Bill DO Urea nitrogen [Mass/Vol] 16 mg/dL Normal 6-20 [facility] Comment on above: Performed By: #### B MPX ####[facility] [id number] [facility] [place] [address] lab Director: Mike Bill DO Basic Metabolic Panel w/ Ref sam to MGon 10-06-2023 Anion gap [Moles/Vol] 14 mmol/L 9 - 17 mmol/L [facility] [employer] Calcium [Mass/Vol] 9.0 mg/dL 8.6 - 10. 4 mg/dL [facility] [employer] Chloride [Moles/Vol] 95 mmol/L Low 98 - 10 7 mmol/L [facility] CO2 [Moles/Vol] 23 mmol/L 20 - 31 mmol/L [facility]607[facility] Creatinine [Mass/Vol] 1.2 mg/dL High 0.5 - 0.9 mg/dL [facility] GFR/1.73 sq M.predicted MDRD (S/P/Bld) [Vol rate/Area] 54 mL/min/{1.73_m2} Low - PINF [facility] Comment on above: These results are not [...] [Mass/Vol] 97 mg/dL 70 - 99 mg/dL [facility] Interpretation and review of laboratory results Abnormal [facility] Potassium [Moles/Vol] 4.3 mmol/L 3.7 - 5.3 mmol/L [facility] Comment on above: SPECIMEN MODERATELY HEMOLYZED, RESULTS MAY BE ADVERSELY AFFECTED Sodium [Moles/Vol] 132 mmol/L Low 135 - 144 mmol/L [facility] Urea nitrogen [Mass/Vol] 16 mg/dL 6 - 20 mg/dL [facility] CBC with Diffon 10-06-2023 Abs. Basophil 0.13 k/uL Normal 0.0-0.2 [facility] Comment on above: Performed By: #### C BIANCA, PT, REJEC #### [facility] [address] [place] [address] Cost Accounting Manager: Mike Bill DO Abs.Neutrophil (Seg) 10.51 k/uL High 1.3-9.1 [facility] Comment on above: Performed By: #### C BIANCA PT, REJEC #### [facility] [address] [place] [address] Cost Accounting Manager: Mike Bill DO Basophils/100 WBC (Bld) 1 % Normal 0-2 [facility] Comment on above: Performed By: #### C BIANCA PT, REJEC #### [facility] [address] [place] [address] Cost Accounting Manager: Mike Bill DO Eosinophils (Bld) [#/Vol] 0.00 10*3/uL Normal 0.0-0.4 [facility] Comment on above: Performed By: #### C BIANCA, PT, REJEC #### [facility] [address] [place] [address] Cost Accounting Manager: Mike Bill DO Eosinophils/100 WBC (Bld) 0 % Normal 0-4 [facility] Comment on above: Performed By: #### C DP, PT, REJEC #### [facility] [address] [place] [address] Cost Accounting Manager: Mike Bill DO Lymphocytes (Bld) [#/Vol] 1.73 10*3/uL Normal 1.0-4.8 [facility] Comment on above: Performed By: #### C DP, PT, REJEC #### [facility] [address] [place] [address] Cost Accounting Manager: Mike Bill DO Lymphocytes/100 WBC (Bld) 13 % Low 24-44 [facility] Comment on above: Performed By: #### C DP, PT, REJEC #### [facility] [address] [place] [address] Cost Accounting Manager: Mike Bill DO Monocytes (Bld) [#/Vol] 0.93 10*3/uL Normal 0.1-1.3 [facility] Comment on above: Performed By: #### C DP, PT, REJEC #### [facility] [place] [address] Cost Accounting Manager: Mike Bill DO Monocytes/100 WBC (Bld) 7 % Normal 1-7 [facility] Comment on above: Performed By: #### C DP, PT, REJEC #### [facility] [address] [place] [address] Cost Accounting Manager: Mike Bill DO Morphology Jeffery (Bld) [Interp] ANISOCYTOSIS PRESENT Normal [facility] Comment on above: Result Comment: HYPO CHROMIA PRESENT MICROCYTOSIS PRESENT 1+ ELLIPTOCYTES 1+ ECHINOCYTES FEW SCHISTOCYTES Performed By: #### C DP, PT, REJEC #### [facility] [address] [place] [address] Cost Accounting Manager: Mike Bill DO Neutrophil (Seg) 79 % High 36-66 [facility] Comment on above: Performed By: #### C DP, PT, REJEC #### [facility] [place] [address] Cost Accounting Manager: Mike Bill DO Erythrocyte distribution width (RBC) [Ratio] 23.8 % High 11.5-14.9 [facility] Comment on above: Performed By: #### C DP, PT, REJEC #### [facility] [address] [place] [address] Cost Accounting Manager: Mike Bill DO Hematocrit (Bld) [Volume fraction] 38.6 % Normal 36-46 [facility] Comment on above: Performed By: #### C DP, PT, REJEC #### [facility] [address] [place] [address] Cost Accounting Manager: Mike Bill DO Hemoglobin (Bld) [Mass/Vol] 10.9 g/dL Low 12.0-16.0 [facility] Comment on above: Performed By: #### C DP, PT, REJEC #### [facility] [address] [place] [address] Cost Accounting Manager: Mike Bill DO MCH (RBC) [Entitic mass] 18.1 pg Low 26-34 [facility] Comment on above: Performed By: #### C DP, PT, REJEC #### [facility] [address] [place] [address] Cost Accounting Manager: Mike Bill DO MCHC (RBC) [Mass/Vol] 28.1 g/dL Low 31-37 [facility] Comment on above: Performed By: #### C DP, PT, REJEC #### [facility] [address] [place] [address] Cost Accounting Manager: Mike Bill DO MCV (RBC) [Entitic vol] 64.3 fL Low 80-100 [facility] Comment on above: Performed By: #### C DP, PT, REJEC #### [facility] [address] [place] [address]. [place] [address] Cost Accounting Manager: Mike Bill DO Platelet mean volume (Bld) [Entitic vol] 9.2 fL Normal 6.0-12.0 [facility] Comment on above: Performed By: #### C DP, PT, REJEC #### [facility] [address] [facility] [address] Cost Accounting Manager: Mike Bill DO Platelets (Bld) [#/Vol] 226 10*3/uL Normal 150-450 [facility] Comment on above: Performed By: #### C DP, PT, REJEC #### [facility] [address] [facility] [address] Cost Accounting Manager: Mike Bill DO RBC (Bld) [#/Vol] 6.01 10*6/uL High 4.0-5.2 [facility] Comment on above: Performed By: #### C DP, PT, REJEC #### [facility] [address] [facility] [place] [address] Cost Accounting Manager: Mike Bill DO WBC (Bld) [#/Vol] 13.3 10*3/uL High 3.5-11.0 [facility] Comment on above: Performed By: #### C DP, PT, REJEC #### [facility] [address] [place] [address]. [place] [address] Cost Accounting Manager: Mike Bill DO CBC with auto differentialon 10-06-2023 Basophils (Bld) [#/Vol] 0.13 10*3/uL [facility] Basophils/100 WBC (Bld) 1 % 0 - 2 % [facility] Eosinophils (Bld) [#/Vol] 0.00 10*3/uL [facility] Eosinophils/100 WBC (Bld) 0 % 0 - 4 % [facility] Erythrocyte distribution width (RBC) [Ratio] 23.8 % High 11.5 - 14.9 % [facility] Hematocrit (Bld) [Volume fraction] 38.6 % 36 - 46 % [facility] Hemoglobin (Bld) [Mass/Vol] 10.9 g/dL Low 12.0 - 16.0 g/dL [facility] Interpretation and review of laboratory results Abnormal [facility] Lymphocytes/100 WBC (Bld) 13 % Low 24 - 44 % [facility] Lymphocytes/100 WBC (Bld) 1.73 % [facility] MCH (RBC) [Entitic mass] 18.1 pg Low 26 - 34 pg [facility] MCHC (RBC) [Mass/Vol] 28.1 g/dL Low 31 - 3 7 g/dL [facility] MCV (RBC) [Entitic vol] 64.3 fL Low 80 - 100 fL [facility] Monocytes/100 WBC (Bld) 7 % 1 - 7 % [facility] Monocytes/100 WBC (Bld) 0.93 % [facility] Morphology Jeffery (Bld) [Interp] ANISOCYTOSIS PRESENT [facility] Morphology Jeffery (Bld) [Interp] HYPOCHROMIA PRESENT [facility] Morphology Jeffery (Bld) [Interp] MICROCYTOSIS PRESENT [facility] Morphology Jeffery (Bld) [Interp] 1+ ELLIPTOCYTES [facility] Morphology Jeffery (Bld) [Interp] 1+ ECHINOCYTES [facility] Morphology Jeffery (Bld) [Interp] FEW SCHISTOCYTES [facility] Neutrophils/100 WBC (Bld) 79 % High 36 - 66 % [facility] Platelet mean volume (Bld) [Entitic vol] 9.2 fL 6.0 - 12.0 fL [facility] Platelets (Bld) [#/Vol] 226 10*3/uL [facility] RBC (Bld) [#/Vol] 6.01 10*6/uL High 4.0 - 5.2 m/uL [facility] Segmented neutrophils/100 WBC (Bld) 10.51 % High [facility] WBC other (Bld) [#/Vol] 13.[address] [facility] [address] HEAD WO CONTRASTon 2023 CT HEAD [...] Kelechi Cuevas DO 10/05/23 Final result Normal [facility] CTA HEAD NECK W CONTRASTon 0 [...] the imaged lung apices. Interpreted by: Brittney Lawson MD Signed by: Brittney Lawson MD 10/05/23 Final result Normal [facility] K (Potassium)on 10-06-2023 Potassium [Moles/Vol] 3.4 mmol/L Low 3.7-5.3 [facility] Comment on above: Result Comment: SPEC IMEN MODERATELY HEMOLYZED, RESULTS MAY BE ADVERSELY AFFECTED Performed By: #### K , TSHX ####[facility] [address] [place] [address] Lab Director: Mike Bill DO PTon 10-06-2023 INR Coag (PPP) [Relative time] 1.1 {INR} Normal [facility] Comment on above: Result Comment: Therapeutic Range: Moderate Anticoagulant Intensity: INR = 2.0-3.0 High Anticoagulant Intensity: INR = 2.5-3.5 Performed By: #### C DP, PT, REJEC #### [facility] [address] [facility] [address] Cost Accounting Manager: Mike Bill DO PT Coag (PPP) [Time] 14.7 s High 11.8-14.6 [facility] Comment on above: Performed By: #### C DP, PT, REJEC #### [facility] [address] [facility] [place], [place] [phone] Cost Accounting Manager: Mike Bill DO Path Review, Smearon 024 Pathologist review Pathologist comment (Bld) [Interp] ELECTRONICALLY SIGNED. ELENITA CARR M.D. [facility] Potassiumon 10-06-2023 Interpretation and review of laboratory results Abnormal [facility] Potassium [Moles/Vol] 3.4 mmol/L Low 3.7 - 5.3 mmol/L [facility] Comment on above: SPECIMEN MODERATELY HEMOLYZED, RESULTS MAY BE ADVERSELY AFFECTED [facility] Protime-INRon 10-06-2023 INR Coag (PPP) [Relative time] 1.1 {INR} [facility] Comment on above: Therapeutic Range: Moderate Anticoagulant Intensity: INR = 2.0-3.0 High Anticoagulant Intensity: INR = 2.5-3.5 Interpretation and review of laboratory results Abnormal [facility] PT Coag (PPP) [Time] 14.7 s High [facility] SURGICAL PATHOLOGY REPORTon 10-06-2023 Surgical Pathology Report [id number] [facility] ANATOMIC PATHOLOGY [address] [place] [address]. [place], [place] [address] SURGICAL PATHOLOGY CONSULTATION Patient Name: ESSENCE VINCENT MR#: [id number] Specimen #[id number] Procedures/Addenda PERIPHERAL BLOOD REPORT Date Ordered: 10/06/2023 [...] the electronic health record for CBC parameters ([id number], 10/05/2023, TIME UNKNOWN). PLATELETS: Platelets show normal morphology. LEUKOCYTES: White blood cells show normal morphology. No atypical lymphocytes. No dysplasia. There are no blasts. ERYTHROCYTES: Microcytic hypochromic anemia with moderate anisopoikilocytosis and elevated RBC count. Note: The electronic health record is reviewed. Elenita Carr M.D. Source: A: Peripheral Blood [facility] Smear to Pathologiston 10-06 Smear to Pathologist ELECTRONICALLY SIGN ED. ELENITA CARR M.D. Normal [facility] Comment on above: Performed By: #### P T, TROPI, ALCB, CDP, MG, CP, RETCT ####[facility] [address] [facility] [place] [address] Lab Director: Mike Bill DO#### PATH ####[facility] [place] [address] lab Director: Heladio Lawson MD Specimen Rejectionon 024 Reason for rejection Unable to perform testing: Specimen hemolyzed. Normal [facility] Comment on above: Performed By: #### C DP, PT, REJEC #### [facility] [address] [facility] [address] Cost Accounting Manager: Mike Bill DO Source of sample .BLOOD Normal [facility] Comment on above: Performed By: #### C DP, PT, REJEC #### [facility] [address] [place] [address] Cost Accounting Manager: Mike Bill DO Test ordered BMPX Normal [facility] Comment on above: Performed By: #### C DP, PT, REJEC #### [facility] [address] [place] [address] Cost Accounting Manager: Mike Bill DO TSH w/reflex to FT4on 2023 Thyroid Stim. Horm. 3.45 uIU/mL Normal 0.30-5.00 [facility] Comment on above: Performed By: #### K , TSHX ####[facility] [address] [place] [address] Lab Director: Mike Bill DO TSH with Reflexon 10-06-2023 TSH Qn 3.45 m[IU]/L [facility] Troponinon 10-06-2023 Troponin, High Sens 25 ng/L High 0-14 [facility] Comment on above: Result Comment: High Sensitivity Troponin values cannot be compared with other Troponin methodologies. Performed By: #### T ROPI ####[facility] [address] [place] [address] Lab Director: Mike Bill DO CBC with Auto Differentialon 10-05-2023 Basophils (Bld) [#/Vol] 0.11 10*3/uL [facility] Basophils/100 WBC (Bld) 1 % 0 - 2 % [facility] Eosinophils (Bld) [#/Vol] 0.11 10*3/uL [facility] Eosinophils/100 WBC (Bld) 1 % 0 - 4 % [facility] Erythrocyte distribution width (RBC) [Ratio] 23.6 % High 11.5 - 14.9 % [facility] Hematocrit (Bld) [Volume fraction] 35.7 % Low 36 - 46 % [facility] Hemoglobin (Bld) [Mass/Vol] 10.5 g/dL Low 12.0 - 16.0 g/dL [facility] Interpretation and review of laboratory results Abnormal [facility] Lymphocytes/100 WBC (Bld) 20 % Low 24 - 44 % [facility] Lymphocytes/100 WBC (Bld) 2.16 % [facility] MCH (RBC) [Entitic mass] 18.1 pg Low 26 - 34 pg [facility] MCHC (RBC) [Mass/Vol] 29.4 g/dL Low 31 - 3 7 g/dL [facility] MCV (RBC) [Entitic vol] 61.7 fL Low 80 - 100 fL [facility] Monocytes/100 WBC (Bld) 11 % High 1 - 7 % [facility] Monocytes/100 WBC (Bld) 1.19 % [facility] Morphology Jeffery (Bld) [Interp] ANISOCYTOSIS PRESENT [facility] Morphology Jeffery (Bld) [Interp] MICROCYTOSIS PRESENT [facility] Morphology Jeffery (Bld) [Interp] HYPOCHROMIA PRESENT [facility] Morphology Jeffery (Bld) [Interp] ELLIPTOCYTES [facility] Morphology Jeffery (Bld) [Interp] ECHINOCYTES [facility] Morphology Jeffery (Bld) [Interp] STOMATOCYTES [facility] Neutrophils/100 WBC (Bld) 67 % High 36 - 66 % [facility] Platelet mean volume (Bld) [Entitic vol] 8.6 fL 6.0 - 12.0 fL [facility] Platelets (Bld) [#/Vol] 268 10*3/uL [facility] RBC (Bld) [#/Vol] 5.79 10*6/uL High 4.0 - 5.2 m/uL [facility] Segmented neutrophils/100 WBC (Bld) 7.23 % [facility] WBC other (Bld) [#/Vol] 10.8 [facility] CBC with Diffon 10-05-2023 Abs. Basophil 0.11 k/uL Normal 0.0-0.2 [facility] Comment on above: Performed By: #### P T, TROPI, ALCB, CDP, MG, CP, RETCT ####[facility] [address] [facility], [place] [address])[phone] Director: Mike Bill DO#### PATH ####[address] [address])[phone] Director: Heladio Lawson MD Abs.Neutrophil (Seg) 7.23 k/uL Normal 1.3-9.1 [facility] Comment on above: Performed By: #### P T, TROPI, ALCB, CDP, MG, CP, RETCT ####[facility] [address] [place] [address])[phone] Director: Mike Bill DO#### PATH ####[address] [address] Lab Director: Heladio Lawson MD Basophils/100 WBC (Bld) 1 % Normal 0-2 [facility] Comment on above: Performed By: #### P T, TROPI, ALCB, CDP, MG, CP, RETCT ####[facility] [address] [place], [place] [address])[phone] Director: Mike Bill DO#### PATH ####[address] [address] Lab Director: Heladio Lawson MD Eosinophils (Bld) [#/Vol] 0.11 10*3/uL Normal 0.0-0.4 [facility] Comment on above: Performed By: #### P T, TROPI, ALCB, CDP, MG, CP, RETCT ####[facility] [address] [place], [place] [address])[phone] Director: Mike Bill DO#### PATH ####[address] [address] Lab Director: Heladio Lawson MD Eosinophils/100 WBC (Bld) 1 % Normal 0-4 [facility] Comment on above: Performed By: #### P T, TROPI, ALCB, CDP, MG, CP, RETCT ####[facility] [address] [place], [place] [address])[phone] Director: Mike Bill DO#### PATH ####[address] [address])[phone] Director: Heladio Lawson MD Lymphocytes (Bld) [#/Vol] 2.16 10*3/uL Normal 1.0-4.8 [facility] Comment on above: Performed By: #### P T, TROPI, ALCB, CDP, MG, CP, RETCT ####[facility] [address] [place], [place] [address])[phone] Director: Mike Bill DO#### PATH ####[address] [address])[phone] Director: Heladio Lawson MD Lymphocytes/100 WBC (Bld) 20 % Low 24-44 [facility] Comment on above: Performed By: #### P T, TROPI, ALCB, CDP, MG, CP, RETCT ####[facility] [address] [place], [place] [address])[phone] Director: Mike Bill DO#### PATH ####[address] [address])[phone] Director: Heladio Lawson MD Monocytes (Bld) [#/Vol] 1.19 10*3/uL Normal 0.1-1.3 [facility] Comment on above: Performed By: #### P T, TROPI, ALCB, CDP, MG, CP, RETCT ####[facility] [address] [place], [place] [phone])[phone] Director: Mike Bill DO#### PATH ####[address] [phone] Director: Heladio Lawson MD Monocytes/100 WBC (Bld) 11 % High 1-7 [facility] Comment on above: Performed By: #### P T, TROPI, ALCB, CDP, MG, CP, RETCT ####[facility] [address] [place], [place] [phone])[phone] Director: Mike Bill DO#### PATH ####[address] [phone] Director: Heladio Lawson MD Morphology Jeffery (Bld) [Interp] ANISOCYTOSIS PRESENT Normal [facility] Comment on above: Result Comment: MICR OCYTOSIS PRESENT HYPOCHROMIA PRESENT ELLIPTOCYTES ECHINOCYTES STOMATOCYTES Performed By: #### P T, TROPI, ALCB, CDP, MG, CP, RETCT ####[facility] [address] [place], [place] [phone] Director: Mike Bill DO#### PATH ####[address] [phone] Director: Heladio Lawson MD Neutrophil (Seg) 67 % High 36-66 [facility] Comment on above: Performed By: #### P T, TROPI, ALCB, CDP, MG, CP, RETCT ####[facility] [address] [place], [place] [phone] Director: Mike Bill DO#### PATH ####[address] [address] Lab Director: Heladio Lawson MD Erythrocyte distribution width (RBC) [Ratio] 23.6 % High 11.5-14.9 [facility] Comment on above: Performed By: #### P T, TROPI, ALCB, CDP, MG, CP, RETCT ####[facility] [address] [place] [address] [facility] Director: Mike Bill DO#### PATH ####[address] [address] [facility] Director: Heladio Lawson MD Hematocrit (Bld) [Volume fraction] 35.7 % Low 36-46 [facility] Comment on above: Performed By: #### P T, TROPI, ALCB, CDP, MG, CP, RETCT ####[address] [address] [facility] Director: Mike Bill DO#### PATH ####[address] [address] Lab Director: Heladio Lawson MD Hemoglobin (Bld) [Mass/Vol] 10.5 g/dL Low 12.0-16.0 [facility] Comment on above: Performed By: #### P T, TROPI, ALCB, CDP, MG, CP, RETCT ####[facility] [address] [place] [address] [facility] Director: Mike Bill DO#### PATH ####[address] [address] Lab Director: Heladio Lawson MD MCH (RBC) [Entitic mass] 18.1 pg Low 26-34 [facility] Comment on above: Performed By: #### P T, TROPI, ALCB, CDP, MG, CP, RETCT ####[facility] [address] [place], [place] [phone] Director: Mike Bill DO#### PATH ####[address] [phone] Director: Heladio Lawson MD MCHC (RBC) [Mass/Vol] 29.4 g/dL Low 31-37 [facility] Comment on above: Performed By: #### P T, TROPI, ALCB, CDP, MG, CP, RETCT ####[facility] [address] [place], [place] [id number])[phone] Director: Mike Bill DO#### PATH ####[address] [phone] Director: Heladio Lawson MD MCV (RBC) [Entitic vol] 61.7 fL Low 80-100 [facility] Comment on above: Performed By: #### P T, TROPI, ALCB, CDP, MG, CP, RETCT ####[facility] [address] [place], [place] [address])[phone] Director: Mike Bill DO#### PATH ####[address] [address])[phone] Director: Heladio Lawson MD Platelet mean volume (Bld) [Entitic vol] 8.6 fL Normal 6.0-12.0 [facility] Comment on above: Performed By: #### P T, TROPI, ALCB, CDP, MG, CP, RETCT ####[facility] [address] [place], [place] [address])[phone] Director: Mike Bill DO#### PATH ####[address] [phone] Director: Heladio Lawson MD Platelets (Bld) [#/Vol] 268 10*3/uL Normal 150-450 [facility] Comment on above: Performed By: #### P T, TROPI, ALCB, CDP, MG, CP, RETCT ####[facility] [address] [facility], [place] [phone] Director: Mike Bill DO#### PATH ####[address] [place], [place] [phone] Director: Heladio Lawson MD RBC (Bld) [#/Vol] 5.79 10*6/uL High 4.0-5.2 [facility] Comment on above: Performed By: #### P T, TROPI, ALCB, CDP, MG, CP, RETCT ####[facility] [address] [place], [place] [phone] Director: Mike Bill DO#### PATH ####[address] [phone] Director: Heladio Lawson MD WBC (Bld) [#/Vol] 10.8 10*3/uL Normal 3.5-11.0 [facility] Comment on above: Performed By: #### P T, TROPI, ALCB, CDP, MG, CP, RETCT ####[facility] [address] [place], [place] [phone] Director: Mike Bill DO#### PATH ####[address] [phone] Director: Heladio Lawson MD CT Head WO contraston 2023 1. Mild patchy periventricular and subcortical white matter changes. Findings are favored to represent chronic small vessel ischemic changes. If clinical concerns for acute ischemia, further assessment with MRI is recommended. 2. Otherwise, no acute findings. 3. Bifrontal distribution cortical atrophy is greater than expected for patient's age. [facility] RIS CONSOLIDATED EXAMINATION: CT OF THE HEAD [...] of the visualized skull or soft tissues. [facility] RIS CONSOLIDATED Kelechi Cuevas, - 10/05/2023 EXAMINATION: CT OF THE HEAD [...] is greater than expected for patient's age. [facility] Radiology Study observation (narrative) [facility] CT Head WO contrastOrdered B y: Kelechi Cuevas on 10-05-2023 [facility] Work Phone: CTA Head vessels and Neck ve ssels W contrast Noah 10-05-2023 1. No evidence of significant arterial stenosis or occlusion in the head or neck. 2. 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 3. Emphysema in the imaged lung apices. [facility] RIS CONSOLIDATED EXAMINATION: CTA OF THE HEAD AND [...] fluid collection. The mckeon-white differentiation is maintained. Brittney Tenorio MD - 10/05/2023 EXAMINATION: CTA OF THE [...] 3. Emphysema in the imaged lung apices. [facility] Radiology Study observation (narrative) [facility] CTA Head vessels and Neck ve ssels W contrast IVOrdered By: Brittney Lawson on 10-05-2023 [facility] Work Phone: Comp Metabolic Profon 2023 Potassium [Moles/Vol] 2.2 mmol/L Critically low 3.7-5.3 [facility] Comment on above: Performed By: #### P T, TROPI, ALCB, CDP, MG, CP, RETCT ####[facility] [address] [place] [address] [facility] Director: Mike Bill DO#### PATH ####[address] [address] Lab Director: Heladio Lawson MD Albumin [Mass/Vol] 4.1 g/dL Normal 3.5-5.2 [facility] Comment on above: Performed By: #### P T, TROPI, ALCB, CDP, MG, CP, RETCT ####[facility] [address] [place] [address] [facility] Director: Mike Bill DO#### PATH ####[address] [place] [address] Lab Director: Heladio Lawson MD Alkaline Phos 316 U/L High 35-104 [facility] Comment on above: Performed By: #### P T, TROPI, ALCB, CDP, MG, CP, RETCT ####[facility] [address] [place] [address] [facility] Director: Mike Bill DO#### PATH ####[address] [address] Lab Director: Heladio Lawson MD ALT [Catalytic activity/Vol] 19 U/L Normal 5-33 [facility] Comment on above: Performed By: #### P T, TROPI, ALCB, CDP, MG, CP, RETCT ####[facility] Wfy[address] [place], [place] [address])[phone] Director: Mike Bill DO#### PATH ####[address] [address] Lab Director: Heladio Lawson MD Anion gap [Moles/Vol] 19 mmol/L High 9-17 [facility] Comment on above: Performed By: #### P T, TROPI, ALCB, CDP, MG, CP, RETCT ####[facility] Jux[address] [place], [place] [address])[phone] Director: Mike Bill DO#### PATH ####[address] [address] Lab Director: Heladio Lawson MD AST [Catalytic activity/Vol] 55 U/L High <32 [facility] Comment on above: Performed By: #### P T, TROPI, ALCB, CDP, MG, CP, RETCT ####[facility] Htt19[address] [place], [place] [address])[phone] Director: Mike Bill DO#### PATH ####[address] [address] Lab Director: Heladio Lawson MD Bilirubin [Mass/Vol] 0.7 mg/dL Normal 0.3-1.2 [facility] Comment on above: Performed By: #### P T, TROPI, ALCB, CDP, MG, CP, RETCT ####[facility] [address] [facility], [place] [phone] Director: Mike Bill DO#### PATH ####[address] [phone] Director: Heladio Lawson MD Calcium [Mass/Vol] 9.7 mg/dL Normal 8.6-10.4 [facility] Comment on above: Performed By: #### P T, TROPI, ALCB, CDP, MG, CP, RETCT ####[facility] [address] [place] [address] Lab Director: Mike Bill DO#### PATH ####[address] [address] Lab Director: Heladio Lawson MD Chloride [Moles/Vol] 96 mmol/L Low 98-107 [facility] Comment on above: Performed By: #### P T, TROPI, ALCB, CDP, MG, CP, RETCT ####[facility] Ypp0211 [place] [address] Lab Director: Mike Bill DO#### PATH ####[address] [address] Lab Director: Heladio Lawson MD CO2 [Moles/Vol] 23 mmol/L Normal 20-31 [facility] Comment on above: Performed By: #### P T, TROPI, ALCB, CDP, MG, CP, RETCT ####[facility] San[address] [place], [place] [phone] Director: Mike Bill DO#### PATH ####[address] [address] Lab Director: Heladio Lawson MD Creatinine [Mass/Vol] 1.2 mg/dL High 0.5-0.9 [facility] Comment on above: Performed By: #### P T, TROPI, ALCB, CDP, MG, CP, RETCT ####[facility] Rvs[address]884 [place] [address] Lab Director: Mike Bill DO#### PATH ####[address] [address] [facility] Director: Heladio Lawson MD GFR/1.73 sq M.predicted among non-blacks MDRD (S/P/Bld) [Vol rate/Area] 54 mL/min/{1.73_m2} Low >60 [facility] Comment on above: Result Comment: These [...] T, TROPI, ALCB, CDP, MG, CP, RETCT ####[facility] Zwj4[address] [place], [place] [address])[phone] Director: Mike Bill DO#### PATH ####[address] [address] Lab Director: Heladio Lawson MD Glucose [Mass/Vol] 181 mg/dL High 70-99 [facility] Comment on above: Performed By: #### P T, TROPI, ALCB, CDP, MG, CP, RETCT ####[facility] Emv[address]32 [place] [address] Lab Director: Mike Bill DO#### PATH ####[address] [phone] Lab Director: Heladio Lawson MD Protein [Mass/Vol] 8.1 g/dL Normal 6.4-8.3 [facility] Comment on above: Performed By: #### P T, TROPI, ALCB, CDP, MG, CP, RETCT ####[facility] Ggy7856 [place] [address] Lab Director: Mike Bill DO#### PATH ####[address] [place] [address] Lab Director: Heladio Lawson MD Sodium [Moles/Vol] 138 mmol/L Normal 135-144 [facility] Comment on above: Performed By: #### P T, TROPI, ALCB, CDP, MG, CP, RETCT ####[facility] Prl[address]18 [place] [address] Lab Director: Mike Bill DO#### PATH ####[address] [address] Lab Director: Heladio Lawson MD Urea nitrogen [Mass/Vol] 17 mg/dL Normal 6-20 [facility] Comment on above: Performed By: #### P T, TROPI, ALCB, CDP, MG, CP, RETCT ####[facility] Xdg3252 [place] [address] Lab Director: Mike Bill DO#### PATH ####[address] [address] Lab Director: Heladio Lawson MD Comprehensive Metabolic Pane siddharth 10-05-2023 Albumin [Mass/Vol] 4.1 g/dL 3.5 - 5.2 g/dL [facility] ALP [Catalytic activity/Vol] 316 U/L High 35 - 104 U/L [facility] ALT [Catalytic activity/Vol] 19 U/L 5 - 33 U/L [facility] Anion gap [Moles/Vol] 19 mmol/L High 9 - 17 mmol/L [facility] AST [Catalytic activity/Vol] 55 U/L High NINF - 32 U/L [facility] Bilirubin [Mass/Vol] 0.7 mg/dL 0.3 - 1 .2 mg/dL [facility] Calcium [Mass/Vol] 9.7 mg/dL 8.6 - 10. 4 mg/dL [facility] Chloride [Moles/Vol] 96 mmol/L Low 98 - 10 7 mmol/L [facility] CO2 [Moles/Vol] 23 mmol/L 20 - 31 mmol/L [facility] Creatinine [Mass/Vol] 1.2 mg/dL High 0.5 - 0.9 mg/dL [facility] GFR/1.73 sq M.predicted MDRD (S/P/Bld) [Vol rate/Area] 54 mL/min/{1.73_m2} Low - PINF [facility] Comment on above: These results are [...] 181 mg/dL High 70 - 99 mg/dL [facility] Interpretation and review of laboratory results Abnormal [facility] Potassium [Moles/Vol] 2.2 mmol/L Critically low 3.7 - 5.3 mmol/L [facility] Protein [Mass/Vol] 8.1 g/dL 6.4 - 8.3 g/dL [facility] Sodium [Moles/Vol] 138 mmol/L 135 - 144 mmol/L [facility] Urea nitrogen [Mass/Vol] 17 mg/dL 6 - 20 mg/dL [facility] Drug Scr, Abuse, Uron 2023 Amphetamine(s),Ur Negative Normal NEG [facility] Comment on above: Result Comment: (Positive cutoff 1000 ng/mL) Performed By: #### U MICAO, UAX, INDIRA ####[facility] [address] [place] [address] Lab Director: Mike Bill DO Barbiturate(s),Ur Positive Abnormal NEG [facility] Comment on above: Result Comment: (Positive cutoff 200 ng/mL) Performed By: #### U MICAO, UAX, INDIRA ####[facility] Jcz2163 [place] [address] Lab Director: Mike Bill DO Benzodiazepine(s) Negative Normal NEG [facility] Comment on above: Result Comment: (Positive cutoff 200 ng/mL) Performed By: #### U MICAO, UAX, INDIRA ####[facility] [address] [place] [address] Lab Director: Mike Bill DO Cannabinoid(s),Ur Positive Abnormal NEG [facility] Comment on above: Result Comment: (Positive cutoff 50 ng/mL) Performed By: #### U MICAO, UAX, INDIRA ####[facility] Qrh1461 [place] [address] Lab Director: Mike Bill DO Cocaine Metabolite Negative Normal NEG [facility] Comment on above: Result Comment: (Positive cutoff 300 ng/mL) Performed By: #### U MICAO, UAX, INDIRA ####[facility] Zvl3025 [place] [address] Lab Director: Mike Bill DO Fentanyl, Urine Negative Normal NEG [facility] Comment on above: Result Comment: (Positive cutoff 5 ng/ml) Performed By: #### U MICAO, UAX, INDIRA ####[facility] Ddr4942 [place] [address] Lab Director: Mike Bill DO Interpretive Info Assay provides medic al screening only. The absence of expected drug(s) and/or Normal [facility] Comment on above: Result Comment: meta bolite(s) may indicate diluted or adulterated urine, limitations of testing or timing of collection. Testing for legal purposes should be confirmed by another method. To request confirmation of test result, please call the lab within 7 days of sample submission. Performed By: #### U MICAO, UAX, INDIRA ####[facility] Xpo4399 [place] [address] Lab Director: Mike Bill DO Methadone Ql (U) Negative Normal NEG [facility] Comment on above: Result Comment: (Positive cutoff 300 ng/mL) Performed By: #### U MICAO, UAX, INDIRA ####[facility] [address] [place] [address] Lab Director: Mike Bill DO Opiate(s), Ur Negative Normal NEG [facility] Comment on above: Result Comment: (Positive cutoff 300 ng/mL) Performed By: #### U MICAO, UAX, INDIRA ####[facility] Inu5573 [place] [address] Lab Director: Mike Bill DO Oxycodone, Urine Negative Normal NEG [facility] Comment on above: Result Comment: (Positive cutoff 100 ng/mL) Performed By: #### U MICAO, UAX, INDIRA ####[facility] [address] [place] [address] Lab Director: Mike Bill DO Phencyclidine, Ur Negative Normal NEG [facility] Comment on above: Result Comment: (Positive cutoff 25 ng/mL) Performed By: #### U MICAO, UAX, INDIRA ####[facility] [address] [place] [address] Lab Director: Mike Bill DO ED Note-Physicianon 02-06-20 24 ED Note-Physician [id number] Normal [facility] Ethanolon 10-05-2023 Ethanol percent <0.010 % [facility] Ethanolamine [Mass/Vol] mg/dL NINF - 10 mg/dL [facility] Ethanol Alcoholon 10-05-2023 Ethanol [Mass/Vol] mg/dL Normal <10 [facility] Comment on above: Performed By: #### P T, TROPI, ALCB, CDP, MG, CP, RETCT ####[facility] Omk9029 [place] [address] Lab Director: Mike Bill DO#### PATH ####[address] [address] lab Director: Heladio Lawson MD Ethanol percent <0.010 Normal [facility] Comment on above: Performed By: #### P T, TROPI, ALCB, CDP, MG, CP, RETCT ####[facility] Ymj4402 [place] [address] Lab Director: Mike Bill DO#### PATH ####[address] [address] Lab Director: Heladio Lawson MD Magnesiumon 10-05-2023 Magnesium [Mass/Vol] 2.1 mg/dL Normal 1.6-2.6 [facility] Comment on above: Performed By: #### P T, TROPI, ALCB, CDP, MG, CP, RETCT ####[facility] Uwh7450 [place] [address] Lab Director: Mike Bill DO#### PATH ####[address] [address] Lab Director: Heladio Lawson MD Magnesium [Mass/Vol] 2.1 mg/dL 1.6 - 2 .6 mg/dL [facility] Microscopic Urinalysison Bacteria LM Ql (Urine sed) FEW Abnormal None [facility] Casts LM.LPF (Urine sed) [#/Area] HYALINE Abnormal None /LPF [facility] Casts LM.LPF (Urine sed) [#/Area] 6 TO 9 Abnormal None /LPF [facility] Casts LM.LPF (Urine sed) [#/Area] FINE GRANULAR Abnormal None /LPF [facility] Casts LM.LPF (Urine sed) [#/Area] 10 TO 20 Abnormal None /LPF [facility] Epithelial cells LM.HPF (Urine sed) [#/Area] 10 TO 20 /HPF [facility] Interpretation and review of laboratory results Abnormal [facility] Mucus Ql (Urine sed) 1+ [facility] RBC LM.HPF (Urine sed) [#/Area] 3 to 5 Abnormal 0 TO 2 /HPF [facility] WBC LM.HPF (Urine sed) [#/Area] 6 TO 9 Abnormal 0 TO 5 /HPF [facility] No Panel Informationon 10-05 [facility] PTon 10-05-2023 INR Coag (PPP) [Relative time] 1.1 {INR} Normal [facility] Comment on above: Result Comment: Therapeutic Range: Moderate Anticoagulant Intensity: INR = 2.0-3.0 High Anticoagulant Intensity: INR = 2.5-3.5 Performed By: #### P T, TROPI, ALCB, CDP, MG, CP, RETCT ####[facility] [address] [place] [address] Lab Director: Mike Bill DO#### PATH ####[address] [place], [place] [phone] lab Director: Heladio Lawson MD PT Coag (PPP) [Time] 14.5 s Normal 11.8-14.6 [facility] Comment on above: Performed By: #### P T, TROPI, ALCB, CDP, MG, CP, RETCT ####[facility] [address] [place] [address] lab Director: Mike Bill DO#### PATH ####[facility] [address] [place] [address] lab Director: Heladio Lawson MD Portable XR Chest AP single viewon 10-05-2023 Cardiomegaly, with m ild pulmonary vascular congestion. [facility] EXAMINATION: ONE XRAY VIEW OF THE [...] pneumothorax is identified. No acute osseous abnormality. [facility] Derrick Zapien MD - 10/05/2023 EXAMINATION: ONE XRAY VIEW [...] IMPRESSION: Cardiomegaly, with mild pulmonary vascular congestion. [facility] Radiology Study observation (narrative) [employer] Portable XR Chest AP single viewOrdered By: Derrick Zapien on 10-05-2023 [employer] Work Phone: [employer]-INRon 10-05-2023 INR Coag (PPP) [Relative time] 1.1 {INR} [facility] Comment on above: Therapeutic Range: Moderate Anticoagulant Intensity: INR = 2.0-3.0 High Anticoagulant Intensity: INR = 2.5-3.5 PT Coag (PPP) [Time] 14.5 s [facility] Retic Counton 10-05-2023 Absolute Retic 0.069 M/uL Normal 0.0245-0.0 98 [facility] Comment on above: Performed By: #### P T, TROPI, ALCB, CDP, MG, CP, RETCT ####[facility] Ltf[address]64 [place] [address] [facility] Director: Mike Bill DO#### PATH ####[place] [address] lab Director: Heladio Lawson MD Retic Count 1.2 % Normal 0.5-2.0 [facility] Comment on above: Performed By: #### P T, TROPI, ALCB, CDP, MG, CP, RETCT ####[facility] Ito[address] [place] [address] [facility] Director: Mike Bill DO#### PATH ####[place] [address] lab Director: Heladio Lawson MD Reticulocyteson 10-05-2023 Reticulocytes (Bld) [#/Vol] 0.069 10*3/uL [facility] Reticulocytes/100 RBC (Bld) 1.2 % 0.5 - 2.0 % [facility] Surgical Pathology Reporton 10-05-2023 Surgical Pathology Report (NOTE) [id number] [employer] [facility] ANATOMIC PATHOLOGY [address] [place] [address]. [place], [place] [address] SURGICAL PATHOLOGY CONSULTATION Patient Name: ESSENCE VINCENT MR#: [id number] Specimen #[id number] Procedures/Addenda PERIPHERAL BLOOD REPORT Date Ordered: 10/06/2023 [...] the electronic health record for CBC parameters ([id number], 10/05/2023, TIME UNKNOWN). PLATELETS: Platelets show normal morphology. LEUKOCYTES: White blood cells show normal morphology. No atypical lymphocytes. No dysplasia. There are no blasts. ERYTHROCYTES: Microcytic hypochromic anemia with moderate anisopoikilocytosis and elevated RBC count. Note: The electronic health record is reviewed. Elenita Carr M.D. Source: A: Peripheral Blood Normal [facility] Troponinon 10-05-2023 Interpretation and review of laboratory results Abnormal [facility] Troponin I.cardiac High sensitivity method [Mass/Vol] 25 ng/L High 0 - 14 ng/L [facility] Comment on above: High Sensitivity Tro ponin values cannot be compared with other Troponin methodologies. [facility] Troponin, High Sens 24 ng/L High 0-14 [facility] Comment on above: Result Comment: High Sensitivity Troponin values cannot be compared with other Troponin methodologies. Performed By: #### P T, TROPI, ALCB, CDP, MG, CP, RETCT ####[facility] [address] [place] [address] Lab Director: Mike Bill DO#### PATH ####[address] [place] [address] lab Director: Heladio Lawson MD Interpretation and review of laboratory results Abnormal [facility] Troponin I.cardiac High sensitivity method [Mass/Vol] 24 ng/L High 0 - 14 ng/L [facility] Comment on above: High Sensitivity Tro ponin values cannot be compared with other Troponin methodologies. [facility] UA w/Reflex Cultureon 2023 Bilirubin, SemiQt,Ur Negative Normal NEG [facility] Comment on above: Performed By: #### U MICAO, UAX, INDIRA ####[facility] [address] [facility] [place] [address] Lab Director: Mike Bill DO Blood, Urine TRACE Abnormal NEG [facility] Comment on above: Performed By: #### U MICAO, UAX, INDIRA ####[facility] [address] [facility], [place] [phone] Director: Mike Bill DO Clarity (U) Clear Normal CLEAR [facility] Comment on above: Performed By: #### U MICAO, UAX, INDIRA ####[facility] [address] [facility] [place] [address] Lab Director: Mike Bill DO Color (U) Dark Yellow Abnormal YEL [facility] Comment on above: Performed By: #### U MICAO, UAX, INDIRA ####[facility] [address] [facility] [place] [address] Lab Director: Mike Bill DO Glucose Ql (U) Negative Normal NEG [facility] Comment on above: Performed By: #### U MICAO, UAX, INDIRA ####[facility] [address] [facility] [place] [address] Lab Director: Mike Bill DO Ketones Ql (U) TRACE Abnormal NEG [facility] Comment on above: Performed By: #### U MICAO, UAX, INDIRA ####[facility] [address] [facility] [place] [address] Lab Director: Mike Bill DO Leukocyte esterase Test strip Ql (U) TRACE Abnormal NEG [facility] Comment on above: Performed By: #### U MICAO, UAX, INDIRA ####[facility] Uin0840 [place] [address] Lab Director: Mike Bill DO Nitrite,Ur Negative Normal NEG [facility] Comment on above: Performed By: #### U MICAO, UAX, INDIRA ####[facility] [address] [place] [address] lab Director: Mike Bill DO PH,Ur 6.0 Normal 5.0-8.0 [facility] Comment on above: Performed By: #### U MICAO, UAX, INDIRA ####[facility] [address] [place] [address] lab Director: Mike Bill DO Protein Ql (U) 1+ mg/dL Abnormal NEG [facility] Comment on above: Performed By: #### U MICAO, UAX, INDIRA ####[facility] [address] [place] [address] lab Director: Mkie Bill DO Spec. Deal,Ur 1.018 Normal 1.000-1.03 0 [facility] Comment on above: Performed By: #### U MICAO, UAX, INDIRA ####[facility] [address] [place] [address] lab Director: Mike Bill DO Urobilinogen,Ur Normal Normal 0.0-1.0 [facility] Comment on above: Performed By: #### U MICAO, UAX, INDIRA ####[facility] [address] [place] [address] lab Director: Mike Bill DO Urinalysis with Reflex to Cu ltureon 10-05-2023 Bilirubin Ql (U) Negative NEGATIVE [facility] Clarity (U) Clear Clear [facility] Color (U) Dark Yellow Abnormal Yellow [facility] Glucose Test strip (U) [Mass/Vol] Negative NEGATIVE mg/dL [facility] Hemoglobin Auto test strip Ql (U) TRACE Abnormal NEGATIVE [facility] Interpretation and review of laboratory results Abnormal [facility] Ketones (U) [Mass/Vol] TRACE Abnormal NEGAT ZULMA mg/dL [facility] Leukocyte esterase Test strip Ql (U) TRACE Abnormal NEGATIVE [facility] Nitrite Ql (U) Negative NEGATIVE [facility] pH (U) 6.0 [pH] 5.0 - 8.0 [facility] Protein (U) [Mass/Vol] 1+ Abnormal NEGAT ZULMA mg/dL [facility] Specific gravity (U) [Rel density] 1.018 1.000 - 1.030 [facility] Urobilinogen Qn (U) Normal 0.0 - 1. 0 EU/dL [facility] Urinalysis,Microon 4 Bacteria FEW Abnormal NONE [facility] Comment on above: Performed By: #### U MICAO, UAX, INDIRA ####[facility] Xvo2896 [place] [address] Lab Director: Mike Bill DO Casts HYALINE Abnormal NONE [facility] Comment on above: Result Comment: 6 TO 9 FINE GRANULAR 10 TO 20 Performed By: #### U MICAO, UAX, INDIRA ####[facility] Fof7847 [place] [address] Lab Director: Mike Bill DO Epithelial cells LM Ql (Urine sed) 10 TO 20 Normal [facility] Comment on above: Performed By: #### U MICAO, UAX, INDIRA ####[facility] Nag[address] [place] [address] Lab Director: Mike Bill DO Mucus Strands 1+ Normal [facility] Comment on above: Performed By: #### U MICAO, UAX, INDIRA ####[facility] [address] [facility] [place] [address] Lab Director: Mike Bill DO Urine RBC's 3 to 5 Abnormal 2 [facility] Comment on above: Performed By: #### U MICAO, UAX, INDIRA ####[facility] [address] [facility] [place] [address] lab Director: Mike Bill DO Urine WBC's 6 TO 9 Abnormal 5 [facility] Comment on above: Performed By: #### U MICAO, UAX, INDIRA ####[facility] [address] [facility] [place] [address] lab Director: Mike Bill DO Urine Drug Screenon 10-05-19 24 Amphetamines Ql (U) Negative NEGATIVE [facility] Comment on above: (Positive cutoff 1000 ng/mL) [...] Comment on above: (Positive cutoff 5 ng/ml) Interpretation and review of laboratory results Abnormal [facility] Methadone Ql (U) Negative NEGATIVE [facility] [...] of testing or timing of collection. [facility] Comment on above: Testing for legal pu rposes should be confirmed by another method. To request confirmation of test result, please call the lab within 7 days of sample submission. [facility] XR CHEST PORTABLEon 10-05-19 24 XR CHEST PORTABLE EXAMINATION: ONE XRAY VIEW [...] Derrick Zapien MD 10/05/23 Final result Normal [facility] Basic metabolic 2000 panelon 09-29-2023 Anion gap [Moles/Vol] 16 mmol/L Normal 10-20 [facility] Comment on above: Performed By: #### 2 4321-2 #### SHAQUILLE GOLDMAN ([id number]) [facility] [address] [place] [address] Calcium [Mass/Vol] 9.3 mg/dL Normal 8.6-10.3 [facility] Comment on above: Performed By: #### 2 4321-2 #### SHAQUILLE GOLDMAN ([id number]) [facility] [address] [place] [address] Chloride [Moles/Vol] 100 mmol/L Normal 98-107 [facility] Comment on above: Performed By: #### 2 4321-2 #### ANAIBJULIO GOLDMAN ([id number]) [facility] [address] [place] [address] CO2 [Moles/Vol] 29 mmol/L Normal 21-32 [facility] Comment on above: Performed By: #### 2 4321-2 #### REGULOIBJULIO GOLDMAN ([id number]) [facility] [address] [place] [address] Creatinine [Mass/Vol] 1.16 mg/dL High 0.50-1.05 [facility] Comment on above: Performed By: #### 2 4321-2 #### SHAQUILLE GOLDMAN ([id number]) [facility] [address] [place] [address] Glomerular filtration rate/1.73 sq M.predicted 56 mL/min/1.73m*2 Low >[address] [facility] Comment on above: Result Comment: Calc ulations of estimated GFR are performed using the 2020 CKD-EPI Study Refit equation without the race variable for the IDMS-Traceable creatinine methods. https://jasn.asnjournals.org/content/early//ASN.67626 08607 Performed By: #### 2 4321-2 #### SHAQUILLE GOLDMAN ([id number]) [facility] [address] [place] [address] Glucose [Mass/Vol] 83 mg/dL Normal 74-99 [facility] Comment on above: Performed By: #### 2 4321-2 #### REGULOIBELIISABELLA DE LEONMICHAEL SKYE ([id number]) [facility] [address] [place] [address] Potassium [Moles/Vol] 3.7 mmol/L Normal 3.5-5.3 [facility] Comment on above: Performed By: #### 2 4321-2 #### REGULOIBELIISABELLA DE LEONMICHAEL SKYE ([id number]) [facility] [address] [place] [address] Sodium [Moles/Vol] 141 mmol/L Normal 136-145 [facility] Comment on above: Performed By: #### 2 4321-2 #### SHAQUILLE GOLDMAN ([id number]) [facility] [address] [place] [address] Urea nitrogen [Mass/Vol] 33 mg/dL High 6-[address] [facility] Comment on above: Performed By: #### 2 4321-2 #### SHAQUILLE GOLDMAN ([id number]) [facility] [address] [place] [address] Anion gap [Moles/Vol] 16 mmol/L 10 - 2 0 mmol/L [facility] Calcium [Mass/Vol] 9.3 mg/dL 8.6 - 10. 3 mg/dL [facility] Chloride [Moles/Vol] 100 mmol/L 98 - 10 7 mmol/L [facility] CO2 [Moles/Vol] 29 mmol/L 21 - 32 mmol/L [facility] Creatinine [Mass/Vol] 1.16 mg/dL High 0.50 - 1.05 mg/dL [facility] GFR/1.73 sq M.predicted among non-blacks MDRD (S/P/Bld) [Vol rate/Area] 56 mL/min/{1.73_m2} Low - PINF [facility] Comment on above: Calculations of yovanny mated GFR are performed using the 2020 CKD-EPI Study Refit equation without the race variable for the IDMS-Traceable creatinine methods. https://jasn.asnjournals.org/content/early//ASN.49466 72759 Glucose [Mass/Vol] 83 mg/dL 74 - 99 mg/dL [facility] Interpretation and review of laboratory results Abnormal [facility] Potassium [Moles/Vol] 3.7 mmol/L 3.5 - 5.3 mmol/L [facility] Sodium [Moles/Vol] 141 mmol/L 136 - 145 mmol/L [facility] Urea nitrogen [Mass/Vol] 33 mg/dL High 6 - 23 mg/dL [facility] CBC panel Auto (Bld)on 09-29 Erythrocyte distribution width (RBC) [Ratio] 23.8 % High 11.5-14.[address] [facility] Comment on above: Performed By: #### 5 8410-2 #### SHAQUILLE GOLDMAN ([id number]) [facility]) [address] [place] [address]21 Hematocrit (Bld) [Volume fraction] 35.4 % Low 36.0-46.[address] [facility] Comment on above: Performed By: #### 5 8410-2 #### SHAQUILLE GOLDMAN ([id number]) [facility] [address] [place] [address] 05624 Hemoglobin (Bld) [Mass/Vol] 9.8 g/dL Low 12.0-16.[address] [facility] Comment on above: Performed By: #### 5 8410-2 #### SHAQUILLE GOLDMAN ([id number]) [facility] [address] [place] [address] 73090 MCH (RBC) [Entitic mass] 17.9 pg Low 26.0-34.[address] [facility] Comment on above: Performed By: #### 5 8410-2 #### SHAQUILLE GOLDMAN ([id number]) [facility] [address] [place] [address] 96508 MCHC (RBC) [Mass/Vol] 27.7 g/dL Low 32.0-36.0 [facility] Comment on above: Performed By: #### 5 8410-2 #### SHAQUILLE GOLDMAN ([id number]) [facility] [address] [place] [address] 48688 MCV (RBC) [Entitic vol] 65 fL Low 80-[address] [facility] Comment on above: Performed By: #### 5 8410-2 #### SHAQUILLE GOLDMAN ([id number]) [facility]) [address] [place] [address] 54904 Nucleated RBC/100 WBC (Bld) [Ratio] 0.0 /100 WBCs Normal 0.0-0.[address] [facility] Comment on above: Performed By: #### 5 8410-2 #### SHAQUILLE GOLDMAN ([id number]) [facility]) [address] [place] [address] 27046 Platelets (Bld) [#/Vol] 303 x10*3/uL Normal 150-[address] [facility] Comment on above: Performed By: #### 5 8410-2 #### SHAQUILLE GOLDMAN ([id number]) [facility] [address] [place] [address] 17628 RBC (Bld) [#/Vol] 5.47 x10*6/uL High 4.00-5.20 [facility] Comment on above: Performed By: #### 5 8410-2 #### SHAQUILLE GOLDMAN ([id number]) [facility]) [address] [place] [address] 51550 WBC (Bld) [#/Vol] 8.7 x10*3/uL Normal 4.4-11.3 [facility] Comment on above: Performed By: #### 5 8410-2 #### SHAQUILLE GOLDMAN ([id number]) [facility]) [address] [place] [address] 04834 Erythrocyte distribution width (RBC) [Ratio] 23.8 % High 11.5 - 14.5 % [facility] Hematocrit (Bld) [Volume fraction] 35.4 % Low 36.0 - 46.0 % [facility] Hemoglobin (Bld) [Mass/Vol] 9.8 g/dL Low 12.0 - 16.0 g/dL [facility] Interpretation and review of laboratory results Abnormal [facility] MCH (RBC) [Entitic mass] 17.9 pg Low 26.0 - 34.0 pg [facility] MCHC (RBC) [Mass/Vol] 27.7 g/dL Low 32.0 - 36.0 g/dL [facility] MCV (RBC) [Entitic vol] 65 fL Low 80 - 100 fL [facility] Nucleated RBC/100 WBC (Bld) [Ratio] 0.0 % [facility] Platelets (Bld) [#/Vol] 303 10*3/uL [facility] RBC (Bld) [#/Vol] 5.47 10*6/uL High [facility] WBC (Bld) [#/Vol] 8.7 10*3/uL [facility] ECG 12-LEADon 09-29-2023 ECG 12-LEAD Ventricular Rate 80 Atrial Rate 79 QRS Duration 240 Q-T Interval 640 QTC Calculation(Bazett) 738 R Mineral -75 T Mineral 92 QRS Count 13 Q Onset 160 T Offset 480 QTC Fredericia 705 Diagnosis AV dual-paced rhythm Abnormal ECG When compared with ECG of 21-JAN-2022 17:39, No significant change was found Confirmed by Fly Sheldon ([id number]) on 09/29/2023 3:03:21 PM Normal [facility] Electrophysiology studyon [facility] Work Phone: No Panel Informationon 09-29 Extra Tube Hold for add-ons. [facility] Comment on above: Auto resulted. [facility] PT and aPTT panel Coag (PPP) on 09-29-2023 aPTT Coag (PPP) [Time] 25 s Low 27-38 Un [facility] Comment on above: Order Comment: The A PTT is no longer used for monitoring Unfractionated Heparin Therapy. For monitoring Heparin Therapy, use the Heparin Assay. Performed By: #### 3 4529-8 #### HSAQUILLE GOLDMAN ([id number]) [facility]) [address] [place] [address] 37623 INR Coag (PPP) [Relative time] 1.0 Normal 0.9-1.[address] [facility] Comment on above: Order Comment: The A PTT is no longer used for monitoring Unfractionated Heparin Therapy. For monitoring Heparin Therapy, use the Heparin Assay. Performed By: #### 3 4529-8 #### REGULOIBJULIO HALEY CHEUNG ([id number]) [facility]) [address] [place] [address] PT Coag (PPP) [Time] 11.1 s Normal 9.8-12.8 [facility] Comment on above: Order Comment: The A PTT is no longer used for monitoring Unfractionated Heparin Therapy. For monitoring Heparin Therapy, use the Heparin Assay. Performed By: #### 3 4529-8 #### SHAQUILLE HALEY WINTER SKYE ([id number]) [facility]) [address] [place] [address] aPTT Coag (PPP) [Time] 25 s Low [facility] INR Coag (PPP) [Relative time] 1.0 {INR} 0.9 - 1.1 [facility] Interpretation and review of laboratory results Abnormal [facility] PT Coag (PPP) [Time] 11.1 s [facility] The APTT is no longe r used for monitoring Unfractionated Heparin Therapy. For monitoring Heparin Therapy, use the Heparin Assay. [facility] Cardiac Device Check - In Cl inicOrdered By: Margareth Nunez on 09-02-2023 [facility] Work Phone: Cardiac Device Check - In Cl inicon 09-02-2023 Radiology Study observation (narrative) [facility] Work Phone: Franck 08-03-2023 [facility] Tele[facility] ([facility]) ----- ESSENCE VINCENT ([id number]) 1970 F Date Time Provider Department 08/03/23 DAVID OSEI [facility] During your visit today, we recorded [...] Device Patient: Essence Vincent Requested by: Maria Glvoer RN Requesting Physician: David Osei MD Procedure Physician: David Osei MD Procedure Requested: ICD change CPT: 40648 Multi Lead Date of Last HANDP? N/A Indications / Dx for Procedure: VT Procedure Time Frame: 1 month Estimated length of case: 1 HOUR Device Company: [employer] Patient: No Type of Bed: [...] same results as previous. Message left on POA's voicemail that she needs to return call [facility] or the date would no longer be [...] for Visit: Schedule Surgery [1330] Cmt: EPS- SENIOR CLINICAL RESEARCH ASSOCIATE-D Change Out Prescriptions as of 08/27/2023 - [...] this patient by: PATIENT Jameel Mcmahon, PharmD [facility] -01-08 Problem List As Of Date 08/03/2023 Noted Resolved Urinary tract infection of [P39.3] 07/26/2004 07/23/2020 Fitting and adjustment of orthopedic device [Z4*04/29/2010 07/23/2020 CAD (coronary artery disease) [I25.10] Remote STEMI (1998) [I21.3] 07/23/2020 Cardiogenic shock (HCC) [R57.0] 07/23/2020 Heart failure, systolic, acute on chronic (HCC)* 07/23/2020 Heart failure, systolic and diastolic, chronic * MR (mitral regurgitation) [I34.0] 07/16/2012 Pulmonary hypertension [I27.20] Dual chamber SENIOR CLINICAL RESEARCH ASSOCIATE-D [Z95.810] 07/23/2020 Primary hypertension [I10] Nicotine use disorder [F17.200] Exercise-induced asthma [J45.990] Anemia [D64.9] 10/29/2011 07/23/2020 H/o GERD [K21.9] 07/23/2020 Migraines [G43.909] H/o Depression/Anxiety/Sleep disturbance [F32.* Preop testing [Z01.818] 07/08/2012 07/23/2020 SUMMARY (more content not included)... Normal [facility] 07-28-2023 CNPN Telephone ([facility]) ----- ESSENCE VINCENT ([id number]) 1970 F Date Time Provider Department 07/28/23 [...] by: PATIENT Jameel Mcmahon, PharmD asa LD -5- Problem List As Of Date 07/28/2023 Noted Resolved Urinary tract infection of [P39.3] 07/26/2004 07/23/2020 Fitting and adjustment of orthopedic device [Z4*04/29/2010 07/23/2020 CAD (coronary artery disease) [I25.10] Remote STEMI (1998) [I21.3] 07/23/2020 Cardiogenic shock (HCC) [R57.0] 07/23/2020 Heart failure, systolic, acute on chronic (HCC)* 07/23/2020 Heart failure, systolic and diastolic, chronic * MR (mitral regurgitation) [I34.0] 07/16/2012 Pulmonary hypertension [I27.20] Dual chamber SENIOR CLINICAL RESEARCH ASSOCIATE-D [Z95.810] 07/23/2020 Primary hypertension [I10] Nicotine use disorder [F17.200] Exercise-induced asthma [J45.990] Anemia [D64.9] 10/29/2011 07/23/2020 H/o GERD [K21.9] 07/23/2020 Migraines [G43.909] H/o Depression/Anxiety/Sleep disturbance [F32.* Preop testing [Z01.818] 07/08/2012 07/23/2020 SUMMARY [V999.95] 07/11/2012 07/23/2020 Pulmonary hypertension, moderate to severe (HCC*2012 Other acute postoperative pain [G89.18] 07/13/2012 07/16/2012 Pulmonary insuff [EPU7394] 07/13/2012 07/23/2020 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 [...] Status:Closed by MARIA GLOVER on 07/28/23 Normal [facility] ICD REMOTE CHECKon 3 AV Delay Adaptive Paced Minimum (ms) 350 ms [facility] AV Delay Adaptive Rate Maximum (bpm) 90 {beats}/min [facility] AV Delay Adaptive Rate Minimum (bpm) 75 {beats}/min [facility] AV Delay Adaptive Sensed Minimum (ms) 250 ms [facility] AV Delay Adaptive Status ENABLED [facility] AV Delay Paced (ms) 100 ms [facility] AV Delay Sensed (ms) 70 ms [facility] Battery Voltage 2.72 V [facility] Scott RA Pacing Amplitude (volts) 2 V [facility] Scott RA Pacing Polarity BI [facility] Scott RA Pacing Pulse Width (ms) 0.4 ms [facility] Scott RA Sensing Amplitude (mvolts) 0.3 mV [facility] Scott RA Sensing Blanking Period (ms) 150 ms [facility] Scott RA Sensing Polarity BI [facility] Scott RA Sensing Refractory Period (ms) 250 ms [facility] Scott RV Pacing Amplitude (volts) 2.25 V [facility] Scott RV Pacing Polarity BI [facility] Scott RV Pacing Pulse Width (ms) 0.4 ms [facility] Scott RV Sensing Amplitude (mvolts) 0.3 mV [facility] Scott RV Sensing Blanking Period (ms) 200 ms [facility] Scott RV Sensing Polarity BI [facility] Detection Configuration (Vent) 2 - Zone [facility] FastVT_Detection Interval 450 ms [facility] FastVT_Therapy Configuration 2 ATP(s) + 0 Shock(s) [facility] ICD AFIB DetectionStatus DISABLED [facility] ICD ATAF DetectionInterval ms 450 ms [facility] ICD ATAF DetectionStatus ENABLED [facility] ICD ATAF TherapyConfiguration 2 ATP(s) + 0 Shock(s) [facility] ICD FastVT DetectionStatus ENABLED [facility] ICD-ADLRATE_BPM 85 {beats}/min [facility] ICD-AMS EPISODES 133 {beats}/min [facility] ICD-ATP Episodes (Vent) 0 [facility] ICD-ATRIALFIBRILLATION 535 Cl [facility] ICD-ATRIALTACHYCARDIA 535 [facility] ICD-ATRIALTACHYCARDIA 18 [facility] ICD-ATRIALTACHYCARDIA 9 [facility] ICD-Counters Cleared Date 09/23/2016 [facility] ICD-Device Mfg MDT [facility] ICD-Fast Ventricular Tachycardia 9 [facility] ICD-LEADIMPEDANCEATRIA L 342 ohm [facility] ICD-Percent Pacing (Atrial) 76.76 % [facility] ICD-Percent Pacing (Vent) 95.69 % [facility] ICD-PMT Intervention ENABLED [facility] ICD-PVC Intervention ENABLED [facility] ICD-Rate Modulation Acceleration Reaction 30 s [facility] ICD-Rate Modulation Deceleration Exercise [facility] ICD-Rate Modulation [place] 3 [facility] ICD-Rate Modulation Threshold MediumHigh [facility] ICD-Shocks Aborted (Vent) 0 [facility] [id number] 0 [facility] ICD-SHOCKSABORTED 0 [facility] ICD-SHOCKSDELIVEREDVEN TRICULAR 0 [facility] ICD-Ventricular Fibrillation 0 [facility] Implant Date 07/03/2005 [facility] Implant Date 11/30/2002 [facility] Lead Impedance (LV) 4047 ohm [facility] Lead Impedance (RV) 779 ohm [facility] Lead Impedance High Voltage 59 ohm [facility] Lead1 Mfg MDT [facility] Lead2 Mfg MDT [facility] Lead3 Mfg GDT [facility] Location LV [facility] Location RA [facility] Location RV [facility] Lower Rate (bpm) 80 {beats}/min [facility] LV PACING % 0 % [facility] Max Sensor Rate (bpm) 90 {beats}/min [facility] MDT_PROG_TACHY_ZONE_DE TECTIONS_STATUS ENABLED [facility] Model [id number] Viva XT SENIOR CLINICAL RESEARCH ASSOCIATE-D [facility] Model 4196 Attain Ability MRI SureScan [facility] Model 5076 CapSureFix Novus [facility] Model 0144 Endotak Endurance Rx [facility] Pacing Mode DDDR [facility] Serial Number [id number] [facility] Serial Number [id number] [facility] Serial Number [id number] [facility] Serial Number [id number] [facility] Test Charge Energy 18 J [facility] Test [facility] Status (Vent) Enabled [facility] Thresh RA Capture Amplitude (volts) 0.625 V [facility] Thresh RA Capture Duration (ms) 0.4 ms [facility] Thresh RA Sensing Amplitude (mvolts) 1.625 mV [facility] Thresh RV Capture Amplitude (VOLTS) 1 V [facility] Thresh RV Capture Duration (MS) 0.4 ms [facility] Thresh RV Sensing Amplitude (MVOLTS) 11.625 mV [facility] Tracking Rate (bpm) 90 {beats}/min [facility] VF Zone Detection Interval 450 ms [facility] VF Zone Therapy Configuration 2 ATP(s) + 0 Shock(s) [facility] No Panel Informationon 07-28 BLANK _ [facility] ICD-ATRIALTACHYCARDIA 0 [facility] ICD-Fast Ventricular Tachycardia 0 [facility] Implant Date 09/23/2016 [facility] ED Note-Physicianon 07-05-20 23 ED Note-Physician [id number]#1.00TIFF [facility] ED Note-Physician [id number] [id number]#1.00TIFF [facility] ED Note-Physician [id number] [id number]#1.00TIFF [facility] Physician Referralon 023 Physician Referral [id number]#1.00CD:12 7 [facility] ICD REMOTE CHECKon 3 AV Delay Adaptive Paced Minimum (ms) 350 ms [facility] AV Delay Adaptive Rate Maximum (bpm) 90 {beats}/min [facility] AV Delay Adaptive Rate Minimum (bpm) 75 {beats}/min [facility] AV Delay Adaptive Sensed Minimum (ms) 250 ms [facility] AV Delay Adaptive Status ENABLED [facility] AV Delay Paced (ms) 100 ms [facility] AV Delay Sensed (ms) 70 ms [facility] Battery Voltage 2.77 V [facility] Scott RA Pacing Amplitude (volts) 2 V [facility] Scott RA Pacing Polarity BI [facility] Scott RA Pacing Pulse Width (ms) 0.4 ms [facility] Scott RA Sensing Amplitude (mvolts) 0.3 mV [facility] Scott RA Sensing Blanking Period (ms) 150 ms [facility] Scott RA Sensing Polarity BI [facility] Scott RA Sensing Refractory Period (ms) 250 ms [facility] Scott RV Pacing Amplitude (volts) 2.5 V [facility] Scott RV Pacing Polarity BI [facility] Scott RV Pacing Pulse Width (ms) 0.4 ms [facility] Scott RV Sensing Amplitude (mvolts) 0.3 mV [facility] Scott RV Sensing Blanking Period (ms) 200 ms [facility] Scott RV Sensing Polarity BI [facility] Detection Configuration (Vent) 2 - Zone [facility] FastVT_Detection Interval 450 ms [facility] FastVT_Therapy Configuration 2 ATP(s) + 0 Shock(s) [facility] ICD AFIB DetectionStatus DISABLED [facility] ICD ATAF DetectionInterval ms 450 ms [facility] ICD ATAF DetectionStatus ENABLED [facility] ICD ATAF TherapyConfiguration 2 ATP(s) + 0 Shock(s) [facility] ICD FastVT DetectionStatus ENABLED [facility] ICD-ADLRATE_BPM 85 {beats}/min [facility] ICD-AMS EPISODES 133 {beats}/min [facility] ICD-ATP Episodes (Vent) 0 [facility] ICD-ATRIALFIBRILLATION 10 Cl [facility] ICD-ATRIALTACHYCARDIA 10 [facility] ICD-Counters Cleared Date 09/23/2016 [facility] ICD-Device Mfg MDT [facility] ICD-LEADIMPEDANCEATRIA L 361 ohm [facility] ICD-Percent Pacing (Atrial) 50.68 % [facility] ICD-Percent Pacing (Vent) 87.63 % [facility] ICD-PMT Intervention ENABLED [facility] ICD-PVC Intervention ENABLED [facility] ICD-Rate Modulation Acceleration Reaction 30 s [facility] ICD-Rate Modulation Deceleration Exercise [facility] ICD-Rate Modulation [place] 3 [facility] ICD-Rate Modulation Threshold MediumHigh [facility] ICD-Shocks Aborted (Vent) 0 [facility] [id number] 0 [facility] ICD-SHOCKSABORTED 0 [facility] ICD-SHOCKSDELIVEREDVEN TRICULAR 0 [facility] ICD-Ventricular Fibrillation 0 [facility] Implant Date 07/03/2005 [facility] Implant Date 11/30/2002 [facility] Lead Impedance (LV) 4047 ohm [facility] Lead Impedance (RV) 779 ohm [facility] Lead Impedance High Voltage 61 ohm [facility] Lead1 Mfg MDT [facility] Lead2 Mfg MDT [facility] Lead3 Mfg GDT [facility] Location LV [facility] Location RA [facility] Location RV [facility] Lower Rate (bpm) 80 {beats}/min [facility] LV PACING % 0 % [facility] Max Sensor Rate (bpm) 90 {beats}/min [facility] MDT_PROG_TACHY_ZONE_DE TECTIONS_STATUS ENABLED [facility] Model [id number] Viva XT SENIOR CLINICAL RESEARCH ASSOCIATE-D [facility] Model 4196 Attain Ability MRI SureScan [facility] Model 5076 CapSureFix Novus [facility] Model 0144 [employer]ot[employer] Endurance Rx [facility] Pacing Mode DDDR [facility] Serial Number [id number] [facility] Serial Number [id number] [facility] Serial Number [id number] [facility] Serial Number [id number] [facility] Test Charge Energy 18 J [facility] Test Charge Time 5.[address] [facility] Therapy Status (Vent) Enabled [facility] Thresh RA Capture Amplitude (volts) 0.625 V [facility] Thresh RA Capture Duration (ms) 0.4 ms [facility] Thresh RA Sensing Amplitude (mvolts) 2.875 mV [facility] Thresh RV Capture Amplitude (VOLTS) 1 V [facility] Thresh RV Capture Duration (MS) 0.4 ms [facility] Thresh RV Sensing Amplitude (MVOLTS) 6.875 mV [facility] Tracking Rate (bpm) 90 {beats}/min [facility] VF Zone Detection Interval 450 ms [facility] VF Zone Therapy Configuration 2 ATP(s) + 0 Shock(s) [facility] No Panel Informationon 05-06 BLANK _ [facility] ICD-ATRIALTACHYCARDIA 0 [facility] ICD-Fast Ventricular Tachycardia 0 [facility] Implant Date 09/23/2016 [facility] ICD REMOTE CHECKon 08-24-202 3 AV Delay Adaptive Paced Minimum (ms) 350 ms [facility] AV Delay Adaptive Rate Maximum (bpm) 90 {beats}/min [facility] AV Delay Adaptive Rate Minimum (bpm) 75 {beats}/min [facility] AV Delay Adaptive Sensed Minimum (ms) 250 ms [facility] AV Delay Adaptive Status ENABLED [facility] AV Delay Paced (ms) 100 ms [facility] AV Delay Sensed (ms) 70 ms [facility] Battery Voltage 2.77 V [facility] Scott RA Pacing Amplitude (volts) 2 V [facility] Scott RA Pacing Polarity BI [facility] Scott RA Pacing Pulse Width (ms) 0.4 ms [facility] Scott RA Sensing Amplitude (mvolts) 0.3 mV [facility] Scott RA Sensing Blanking Period (ms) 150 ms [facility] Scott RA Sensing Polarity BI [facility] Scott RA Sensing Refractory Period (ms) 250 ms [facility] Scott RV Pacing Amplitude (volts) 2.75 V [facility] Scott RV Pacing Polarity BI [facility] Scott RV Pacing Pulse Width (ms) 0.4 ms [facility] Scott RV Sensing Amplitude (mvolts) 0.3 mV [facility] Scott RV Sensing Blanking Period (ms) 200 ms [facility] Scott RV Sensing Polarity BI [facility] Detection Configuration (Vent) 2 - Zone [facility] FastVT_Detection Interval 450 ms [facility] FastVT_Therapy Configuration 2 ATP(s) + 0 Shock(s) [facility] ICD AFIB DetectionStatus DISABLED [facility] ICD ATAF DetectionInterval ms 450 ms [facility] ICD ATAF DetectionStatus ENABLED [facility] ICD ATAF TherapyConfiguration 2 ATP(s) + 0 Shock(s) [facility] ICD FastVT DetectionStatus ENABLED [facility] ICD-ADLRATE_BPM 85 {beats}/min [facility] ICD-AMS EPISODES 133 {beats}/min [facility] ICD-ATP Episodes (Vent) 0 [facility] ICD-ATRIALFIBRILLATION 4 Cl [facility] ICD-ATRIALTACHYCARDIA 4 [facility] ICD-Counters Cleared Date 09/23/2016 [facility] ICD-Device Mfg MDT [facility] ICD-LEADIMPEDANCEATRIA L 342 ohm [facility] ICD-Percent Pacing (Atrial) 46.68 % [facility] ICD-Percent Pacing (Vent) 90.31 % [facility] ICD-PMT Intervention ENABLED [facility] ICD-PVC Intervention ENABLED [facility] ICD-Rate Modulation Acceleration Reaction 30 s [facility] ICD-Rate Modulation Deceleration Exercise [facility] ICD-Rate Modulation [place] 3 [facility] ICD-Rate Modulation Threshold MediumHigh [facility] ICD-Shocks Aborted (Vent) 0 [facility] [id number] 0 [facility] ICD-SHOCKSABORTED 0 [facility] ICD-SHOCKSDELIVEREDVEN TRICULAR 0 [facility] ICD-Ventricular Fibrillation 0 [facility] Implant Date 07/03/2005 [facility] Implant Date 11/30/2002 [facility] Lead Impedance (LV) 4047 ohm [facility] Lead Impedance (RV) 760 ohm [facility] Lead Impedance High Voltage 64 ohm [facility] Lead1 Mfg MDT [facility] Lead2 Mfg MDT [facility] Lead3 Mfg GDT [facility] Location LV [facility] Location RA [facility] Location RV [facility] Lower Rate (bpm) 80 {beats}/min [facility] LV PACING % 0 % [facility] Max Sensor Rate (bpm) 90 {beats}/min [facility] MDT_PROG_TACHY_ZONE_DE TECTIONS_STATUS ENABLED [facility] Model [id number] Viva XT SENIOR CLINICAL RESEARCH ASSOCIATE-D [facility] Model 4196 Attain Ability MRI SureScan [facility] Model 5076 CapSureFix Novus [facility] Model 0144 Endotak Endurance Rx [facility] Pacing Mode DDDR [facility] Serial Number [id number] [facility] Serial Number [id number] [facility] Serial Number [id number] [facility] Serial Number [id number] [facility] Test Charge Energy 18 J [facility] Test Charge Time 5.[address] [facility] Therapy Status (Vent) Enabled [facility] Thresh RA Capture Amplitude (volts) 0.625 V [facility] Thresh RA Capture Duration (ms) 0.4 ms [facility] Thresh RA Sensing Amplitude (mvolts) 2.5 mV [facility] Thresh RV Capture Amplitude (VOLTS) 1.375 V [facility] Thresh RV Capture Duration (MS) 0.4 ms [facility] Thresh RV Sensing Amplitude (MVOLTS) 7.5 mV [facility] Tracking Rate (bpm) 90 {beats}/min [facility] VF Zone Detection Interval 450 ms [facility] VF Zone Therapy Configuration 2 ATP(s) + 0 Shock(s) [facility] No Panel Informationon 04-22 BLANK _ [facility] ICD-ATRIALTACHYCARDIA 0 [facility] ICD-Fast Ventricular Tachycardia 0 [facility] Implant Date 09/23/2016 [facility] ICD REMOTE CHECKon 3 AV Delay Adaptive Paced Minimum (ms) 350 ms [facility] AV Delay Adaptive Rate Maximum (bpm) 90 {beats}/min [facility] AV Delay Adaptive Rate Minimum (bpm) 75 {beats}/min [facility] AV Delay Adaptive Sensed Minimum (ms) 250 ms [facility] AV Delay Adaptive Status ENABLED [facility] AV Delay Paced (ms) 100 ms [facility] AV Delay Sensed (ms) 70 ms [facility] Battery Voltage 2.78 V [facility] Scott RA Pacing Amplitude (volts) 2 V [facility] Scott RA Pacing Polarity BI [facility] Scott RA Pacing Pulse Width (ms) 0.4 ms [facility] Scott RA Sensing Amplitude (mvolts) 0.3 mV [facility] Scott RA Sensing Blanking Period (ms) 150 ms [facility] Scott RA Sensing Polarity BI [facility] Scott RA Sensing Refractory Period (ms) 250 ms [facility] Scott RV Pacing Amplitude (volts) 3 V [facility] Scott RV Pacing Polarity BI [facility] Scott RV Pacing Pulse Width (ms) 0.4 ms [facility] Scott RV Sensing Amplitude (mvolts) 0.3 mV [facility] Scott RV Sensing Blanking Period (ms) 200 ms [facility] Scott RV Sensing Polarity BI [facility] Detection Configuration (Vent) 2 - Zone [facility] FastVT_Detection Interval 450 ms [facility] FastVT_Therapy Configuration 2 ATP(s) + 0 Shock(s) [facility] ICD AFIB DetectionStatus DISABLED [facility] ICD ATAF DetectionInterval ms 450 ms [facility] ICD ATAF DetectionStatus ENABLED [facility] ICD ATAF TherapyConfiguration 2 ATP(s) + 0 Shock(s) [facility] ICD FastVT DetectionStatus ENABLED [facility] ICD-ADLRATE_BPM 85 {beats}/min [facility] ICD-AMS EPISODES 133 {beats}/min [facility] ICD-ATP Episodes (Vent) 0 [facility] ICD-ATRIALFIBRILLATION 0 Cl [facility] ICD-Counters Cleared Date 09/23/2016 [facility] ICD-Device Mfg MDT [facility] ICD-LEADIMPEDANCEATRIA L 342 ohm [facility] ICD-Percent Pacing (Atrial) 44.86 % [facility] ICD-Percent Pacing (Vent) 83.22 % [facility] ICD-PMT Intervention ENABLED [facility] ICD-PVC Intervention ENABLED [facility] ICD-Rate Modulation Acceleration Reaction 30 s [facility] ICD-Rate Modulation Deceleration Exercise [facility] ICD-Rate Modulation [place] 3 [facility] ICD-Rate Modulation Threshold MediumHigh [facility] ICD-Shocks Aborted (Vent) 0 [facility] [id number] 0 [facility] ICD-SHOCKSABORTED 0 [facility] ICD-SHOCKSDELIVEREDVEN TRICULAR 0 [facility] ICD-Ventricular Fibrillation 0 [facility] Implant Date 07/03/2005 [facility] Implant Date 11/30/2002 [facility] Lead Impedance (LV) 4047 ohm [facility] Lead Impedance (RV) 779 ohm [facility] Lead Impedance High Voltage 61 ohm [facility] Lead1 Mfg MDT [facility] Lead2 Mfg MDT [facility] Lead3 Mfg GDT [facility] Location LV [facility] Location RA [facility] Location RV [facility] Lower Rate (bpm) 80 {beats}/min [facility] LV PACING % 0 % [facility] Max Sensor Rate (bpm) 90 {beats}/min [facility] MDT_PROG_TACHY_ZONE_DE TECTIONS_STATUS ENABLED [facility] Model [id number] Viva XT SENIOR CLINICAL RESEARCH ASSOCIATE-D [facility] Model 4196 Attain Ability MRI SureScan [facility] Model 5076 CapSureFix Novus [facility] Model 0144 Endotak Endurance Rx [facility] Pacing Mode DDDR [facility] Serial Number [id number] [facility] Serial Number [id number] [facility] Serial Number [id number] [facility] Serial Number [id number] [facility] Test Charge Energy 18 J [facility] Test Charge Time 5.[address] [facility] Therapy Status (Vent) Enabled [facility] Thresh RA Capture Amplitude (volts) 0.625 V [facility] Thresh RA Capture Duration (ms) 0.4 ms [facility] Thresh RA Sensing Amplitude (mvolts) 2 mV [facility] Thresh RV Capture Amplitude (VOLTS) 1.125 V [facility] Thresh RV Capture Duration (MS) 0.4 ms [facility] Thresh RV Sensing Amplitude (MVOLTS) 9.25 mV [facility] Tracking Rate (bpm) 90 {beats}/min [facility] VF Zone Detection Interval 450 ms [facility] VF Zone Therapy Configuration 2 ATP(s) + 0 Shock(s) [facility] AV Delay Adaptive Paced Minimum (ms) 350 ms [facility] AV Delay Adaptive Rate Maximum (bpm) 90 {beats}/min [facility] AV Delay Adaptive Rate Minimum (bpm) 75 {beats}/min [facility] AV Delay Adaptive Sensed Minimum (ms) 250 ms [facility] AV Delay Adaptive Status ENABLED [facility] AV Delay Paced (ms) 100 ms [facility] AV Delay Sensed (ms) 70 ms [facility] Battery Voltage 2.78 V [facility] Scott RA Pacing Amplitude (volts) 2 V [facility] Scott RA Pacing Polarity BI [facility] Scott RA Pacing Pulse Width (ms) 0.4 ms [facility] Scott RA Sensing Amplitude (mvolts) 0.3 mV [facility] Scott RA Sensing Blanking Period (ms) 150 ms [facility] Scott RA Sensing Polarity BI [facility] Scott RA Sensing Refractory Period (ms) 250 ms [facility] Scott RV Pacing Amplitude (volts) 3 V [facility] Scott RV Pacing Polarity BI [facility] Scott RV Pacing Pulse Width (ms) 0.4 ms [facility] Scott RV Sensing Amplitude (mvolts) 0.3 mV [facility] Scott RV Sensing Blanking Period (ms) 200 ms [facility] Scott RV Sensing Polarity BI [facility] Detection Configuration (Vent) 2 - Zone [facility] FastVT_Detection Interval 450 ms [facility] FastVT_Therapy Configuration 2 ATP(s) + 0 Shock(s) [facility] ICD AFIB DetectionStatus DISABLED [facility] ICD ATAF DetectionInterval ms 450 ms [facility] ICD ATAF DetectionStatus ENABLED [facility] ICD ATAF TherapyConfiguration 2 ATP(s) + 0 Shock(s) [facility] ICD FastVT DetectionStatus ENABLED [facility] ICD-ADLRATE_BPM 85 {beats}/min [facility] ICD-AMS EPISODES 133 {beats}/min [facility] ICD-ATP Episodes (Vent) 0 [facility] ICD-ATRIALFIBRILLATION 0 [facility] ICD-Counters Cleared Date 09/23/2016 [facility] ICD-Device Mfg MDT [facility] ICD-LEADIMPEDANCEATRIA L 342 ohm [facility] ICD-Percent Pacing (Atrial) 80.04 % [facility] ICD-Percent Pacing (Vent) 89.35 % [facility] ICD-PMT Intervention ENABLED [facility] ICD-PVC Intervention ENABLED [facility] ICD-Rate Modulation Acceleration Reaction 30 s [facility] ICD-Rate Modulation Deceleration Exercise [facility] ICD-Rate Modulation [place] 3 [facility] ICD-Rate Modulation Threshold MediumHigh [facility] ICD-Shocks Aborted (Vent) 0 [facility] [id number] 0 [facility] ICD-SHOCKSABORTED 0 [facility] ICD-SHOCKSDELIVEREDVEN TRICULAR 0 [facility] ICD-Ventricular Fibrillation 0 [facility] Implant Date 07/03/2005 [facility] Implant Date 11/30/2002 [facility] Lead Impedance (LV) 4047 ohm [facility] Lead Impedance (RV) 760 ohm [facility] Lead Impedance High Voltage 63 ohm [facility] Lead1 Mfg MDT [facility] Lead2 Mfg MDT [facility] Lead3 Mfg GDT [facility] Location LV [facility] Location RA [facility] Location RV [facility] Lower Rate (bpm) 80 {beats}/min [facility] LV PACING % 0 % [facility] Max Sensor Rate (bpm) 90 {beats}/min [facility] MDT_PROG_TACHY_ZONE_DE TECTIONS_STATUS ENABLED [facility] Model [id number] Viva XT SENIOR CLINICAL RESEARCH ASSOCIATE-D [facility] Model 4196 Attain Ability MRI SureScan [facility] Model 5076 CapSureFix Novus [facility] Model 0144 Endotak Endurance Rx [facility] Pacing Mode DDDR [facility] Serial Number [id number] [facility] Serial Number [id number] [facility] Serial Number [id number] [facility] Serial Number [id number] [facility] Test Charge Energy 18 J [facility] Test Charge Time 5.[address] [facility] Therapy Status (Vent) Enabled [facility] Thresh RA Capture Amplitude (volts) 0.625 V [facility] Thresh RA Capture Duration (ms) 0.4 ms [facility] Thresh RA Sensing Amplitude (mvolts) 2.375 mV [facility] Thresh RV Capture Amplitude (VOLTS) 1.125 V [facility] Thresh RV Capture Duration (MS) 0.4 ms [facility] Thresh RV Sensing Amplitude (MVOLTS) 8.75 mV [facility] Tracking Rate (bpm) 90 {beats}/min [facility] VF Zone Detection Interval 450 ms [facility] VF Zone Therapy Configuration 2 ATP(s) + 0 Shock(s) [facility] No Panel Informationon 04-09 BLANK _ [facility] ICD-ATRIALTACHYCARDIA 0 [facility] ICD-Fast Ventricular Tachycardia 0 [facility] Implant Date 09/23/2016 [facility] BLANK _ [facility] ICD-ATRIALTACHYCARDIA 0 [facility] ICD-Fast Ventricular Tachycardia 0 [facility] Implant Date 09/23/2016 [facility] ICD REMOTE CHECKon 3 AV Delay Adaptive Paced Minimum (ms) 350 ms [facility] AV Delay Adaptive Rate Maximum (bpm) 90 {beats}/min [facility] AV Delay Adaptive Rate Minimum (bpm) 75 {beats}/min [facility] AV Delay Adaptive Sensed Minimum (ms) 250 ms [facility] AV Delay Adaptive Status ENABLED [facility] AV Delay Paced (ms) 100 ms [facility] AV Delay Sensed (ms) 70 ms [facility] Battery Voltage 2.79 V [facility] Scott RA Pacing Amplitude (volts) 2 V [facility] Scott RA Pacing Polarity BI [facility] Scott RA Pacing Pulse Width (ms) 0.4 ms [facility] Scott RA Sensing Amplitude (mvolts) 0.3 mV [facility] Scott RA Sensing Blanking Period (ms) 150 ms [facility] Scott RA Sensing Polarity BI [facility] Scott RA Sensing Refractory Period (ms) 250 ms [facility] Scott RV Pacing Amplitude (volts) 3 V [facility] Scott RV Pacing Polarity BI [facility] Scott RV Pacing Pulse Width (ms) 0.4 ms [facility] Scott RV Sensing Amplitude (mvolts) 0.3 mV [facility] Scott RV Sensing Blanking Period (ms) 200 ms [facility] Scott RV Sensing Polarity BI [facility] Detection Configuration (Vent) 2 - Zone [facility] FastVT_Detection Interval 450 ms [facility] FastVT_Therapy Configuration 2 ATP(s) + 0 Shock(s) [facility] ICD AFIB DetectionStatus DISABLED [facility] ICD ATAF DetectionInterval ms 450 ms [facility] ICD ATAF DetectionStatus ENABLED [facility] ICD ATAF TherapyConfiguration 2 ATP(s) + 0 Shock(s) [facility] ICD FastVT DetectionStatus ENABLED [facility] ICD-ADLRATE_BPM 85 {beats}/min [facility] ICD-AMS EPISODES 133 {beats}/min [facility] ICD-ATP Episodes (Vent) 0 [facility] ICD-ATRIALFIBRILLATION 0 [facility] ICD-Counters Cleared Date 09/23/2016 [facility] ICD-Device Sri GROSS [facility] ICD-LEADIMPEDANCEATRIA L 342 ohm [facility] ICD-Percent Pacing (Atrial) 81.31 % [facility] ICD-Percent Pacing (Vent) 99.41 % [facility] ICD-PMT Intervention ENABLED [facility] ICD-PVC Intervention ENABLED [facility] ICD-Rate Modulation Acceleration Reaction 30 s [facility] ICD-Rate Modulation Deceleration Exercise [facility] ICD-Rate Modulation [place] 3 [facility] ICD-Rate Modulation Threshold MediumHigh [facility] ICD-Shocks Aborted (Vent) 0 [facility] [id number] 0 [facility] ICD-SHOCKSABORTED 0 [facility] ICD-SHOCKSDELIVEREDVEN TRICULAR 0 [facility] ICD-Ventricular Fibrillation 0 [facility] Implant Date 07/03/2005 [facility] Implant Date 11/30/2002 [facility] Lead Impedance (LV) 4047 ohm [facility] Lead Impedance (RV) 722 ohm [facility] Lead Impedance High Voltage 61 ohm [facility] Lead1 Mfg MDT [facility] Lead2 Mfg MDT [facility] Lead3 Mfg GDT [facility] Location LV [facility] Location RA [facility] Location RV [facility] Lower Rate (bpm) 80 {beats}/min [facility] LV PACING % 0 % [facility] Max Sensor Rate (bpm) 90 {beats}/min [facility] RENATO_PROG_TACHY_ZONE_DE TECTIONS_STATUS ENABLED [facility] Model [id number] Viva XT SENIOR CLINICAL RESEARCH ASSOCIATE-D [facility] Model 4196 Attain Ability MRI SureScan [facility] Model 5076 CapSureFix Novus [facility] Model 0144 Endotak Endurance Rx [facility] Pacing Mode DDDR [facility] Serial Number [id number] [facility] Serial Number [id number] [facility] Serial Number [id number] [facility] Serial Number [id number] [facility] Test Charge Energy 18 J [facility] Test Charge Time 5.[address] [facility] Therapy Status (Vent) Enabled [facility] Thresh RA Capture Amplitude (volts) 0.625 V [facility] Thresh RA Capture Duration (ms) 0.4 ms [facility] Thresh RA Sensing Amplitude (mvolts) 3 mV [facility] Thresh RV Capture Amplitude (VOLTS) 1.25 V [facility] Thresh RV Capture Duration (MS) 0.4 ms [facility] Thresh RV Sensing Amplitude (MVOLTS) 8.75 mV [facility] Tracking Rate (bpm) 90 {beats}/min [facility] VF Zone Detection Interval 450 ms [facility] VF Zone Therapy Configuration 2 ATP(s) + 0 Shock(s) [facility] AV Delay Adaptive Paced Minimum (ms) 350 ms [facility] AV Delay Adaptive Rate Maximum (bpm) 90 {beats}/min [facility] AV Delay Adaptive Rate Minimum (bpm) 75 {beats}/min [facility] AV Delay Adaptive Sensed Minimum (ms) 250 ms [facility] AV Delay Adaptive Status ENABLED [facility] AV Delay Paced (ms) 100 ms [facility] AV Delay Sensed (ms) 70 ms [facility] Battery Voltage 2.79 V [facility] Scott RA Pacing Amplitude (volts) 2 V [facility] Scott RA Pacing Polarity BI [facility] Scott RA Pacing Pulse Width (ms) 0.4 ms [facility] Scott RA Sensing Amplitude (mvolts) 0.3 mV [facility] Scott RA Sensing Blanking Period (ms) 150 ms [facility] Scott RA Sensing Polarity BI [facility] Scott RA Sensing Refractory Period (ms) 250 ms [facility] Scott RV Pacing Amplitude (volts) 2.75 V [facility] Scott RV Pacing Polarity BI [facility] Scott RV Pacing Pulse Width (ms) 0.4 ms [facility] Csott RV Sensing Amplitude (mvolts) 0.3 mV [facility] Scott RV Sensing Blanking Period (ms) 200 ms [facility] Scott RV Sensing Polarity BI [facility] Detection Configuration (Vent) 2 - Zone [facility] FastVT_Detection Interval 450 ms [facility] FastVT_Therapy Configuration 2 ATP(s) + 0 Shock(s) [facility] ICD AFIB DetectionStatus DISABLED [facility] ICD ATAF DetectionInterval ms 450 ms [facility] ICD ATAF DetectionStatus ENABLED [facility] ICD ATAF TherapyConfiguration 2 ATP(s) + 0 Shock(s) [facility] ICD FastVT DetectionStatus ENABLED [facility] ICD-ADLRATE_BPM 85 {beats}/min [facility] ICD-AMS EPISODES 133 {beats}/min [facility] ICD-ATP Episodes (Vent) 0 [facility] ICD-ATRIALFIBRILLATION 0 [facility] ICD-Counters Cleared Date 09/23/2016 [facility] ICD-Device Sri CLAYT [facility] ICD-LEADIMPEDANCEATRIA L 342 ohm [facility] ICD-Percent Pacing (Atrial) 99.2 % [facility] ICD-Percent Pacing (Vent) 99.87 % [facility] ICD-PMT Intervention ENABLED [facility] ICD-PVC Intervention ENABLED [facility] ICD-Rate Modulation Acceleration Reaction 30 s [facility] ICD-Rate Modulation Deceleration Exercise [facility] ICD-Rate Modulation [place] 3 [facility] ICD-Rate Modulation Threshold MediumHigh [facility] ICD-Shocks Aborted (Vent) 0 [facility] [id number] 0 [facility] ICD-SHOCKSABORTED 0 [facility] ICD-SHOCKSDELIVEREDVEN TRICULAR 0 [facility] ICD-Ventricular Fibrillation 0 [facility] Implant Date 07/03/2005 [facility] Implant Date 11/30/2002 [facility] Lead Impedance (LV) 4047 ohm [facility] Lead Impedance (RV) 722 ohm [facility] Lead Impedance High Voltage 62 ohm [facility] Lead1 Emilyg MDT [facility] Lead2 Emilyg MDT [facility] Lead3 Mfg GDT [facility] Location LV [facility] Location RA [facility] Location RV [facility] Lower Rate (bpm) 80 {beats}/min [facility] LV PACING % 0 % [facility] Max Sensor Rate (bpm) 90 {beats}/min [facility] MDT_PROG_TACHY_ZONE_DE TECTIONS_STATUS ENABLED [facility] Model [id number] Viva XT SENIOR CLINICAL RESEARCH ASSOCIATE-D [facility] Model 4196 Attain Ability MRI SureScan [facility] Model 5076 CapSureFix Novus [facility] Model 0144 Endotak Endurance Rx [facility] Pacing Mode DDDR [facility] Serial Number [id number] [facility] Serial Number [id number] [facility] Serial Number [id number] [facility] Serial Number [id number] [facility] Test Charge Energy 18 J [facility] Test Charge Time 5.[address] [facility] Therapy Status (Vent) Enabled [facility] Thresh RA Capture Amplitude (volts) 0.625 V [facility] Thresh RA Capture Duration (ms) 0.4 ms [facility] Thresh RA Sensing Amplitude (mvolts) 2.25 mV [facility] Thresh RV Capture Amplitude (VOLTS) 1.375 V [facility] Thresh RV Capture Duration (MS) 0.4 ms [facility] Thresh RV Sensing Amplitude (MVOLTS) 8.125 mV [facility] Tracking Rate (bpm) 90 {beats}/min [facility] VF Zone Detection Interval 450 ms [facility] VF Zone Therapy Configuration 2 ATP(s) + 0 Shock(s) [facility] No Panel Informationon 03-29 [facility] _ [facility] ICD-ATRIALTACHYCARDIA 0 [facility] ICD-Fast Ventricular Tachycardia 0 [facility] Implant Date 09/23/2016 [facility] BLANK _ [facility] ICD-ATRIALTACHYCARDIA 0 [facility] ICD-Fast Ventricular Tachycardia 0 [facility] Implant Date 09/23/2016 [facility] ICD REMOTE CHECKon 3 AV Delay Adaptive Paced Minimum (ms) 350 ms [facility] AV Delay Adaptive Rate Maximum (bpm) 90 {beats}/min [facility] AV Delay Adaptive Rate Minimum (bpm) 75 {beats}/min [facility] AV Delay Adaptive Sensed Minimum (ms) 250 ms [facility] AV Delay Adaptive Status ENABLED [facility] AV Delay Paced (ms) 100 ms [facility] AV Delay Sensed (ms) 70 ms [facility] Battery Voltage 2.79 V [facility] Scott RA Pacing Amplitude (volts) 2 V [facility] Scott RA Pacing Polarity BI [facility] Scott RA Pacing Pulse Width (ms) 0.4 ms [facility] Scott RA Sensing Amplitude (mvolts) 0.3 mV [facility] Scott RA Sensing Blanking Period (ms) 150 ms [facility] Scott RA Sensing Polarity BI [facility] Scott RA Sensing Refractory Period (ms) 250 ms [facility] Scott RV Pacing Amplitude (volts) 2.75 V [facility] Scott RV Pacing Polarity BI [facility] Scott RV Pacing Pulse Width (ms) 0.4 ms [facility] Scott RV Sensing Amplitude (mvolts) 0.3 mV [facility] Scott RV Sensing Blanking Period (ms) 200 ms [facility] Scott RV Sensing Polarity BI [facility] Detection Configuration (Vent) 2 - Zone [facility] FastVT_Detection Interval 450 ms [facility] FastVT_Therapy Configuration 2 ATP(s) + 0 Shock(s) [facility] ICD AFIB DetectionStatus DISABLED [facility] ICD ATAF DetectionInterval ms 450 ms [facility] ICD ATAF DetectionStatus ENABLED [facility] ICD ATAF TherapyConfiguration 2 ATP(s) + 0 Shock(s) [facility] ICD FastVT DetectionStatus ENABLED [facility] ICD-ADLRATE_BPM 85 {beats}/min [facility] ICD-AMS EPISODES 133 {beats}/min [facility] ICD-ATP Episodes (Vent) 0 [facility] ICD-ATRIALFIBRILLATION 0 [facility] ICD-Counters Cleared Date 09/23/2016 [facility] ICD-Device Mfg MDT [facility] ICD-LEADIMPEDANCEATRIA L 342 ohm [facility] ICD-Percent Pacing (Atrial) 99.95 % [facility] ICD-Percent Pacing (Vent) 99.97 % [facility] ICD-PMT Intervention ENABLED [facility] ICD-PVC Intervention ENABLED [facility] ICD-Rate Modulation Acceleration Reaction 30 s [facility] ICD-Rate Modulation Deceleration Exercise [facility] ICD-Rate Modulation [place] 3 [facility] ICD-Rate Modulation Threshold MediumHigh [facility] ICD-Shocks Aborted (Vent) 0 [facility] [id number] 0 [facility] ICD-SHOCKSABORTED 0 [facility] ICD-SHOCKSDELIVEREDVEN TRICULAR 0 [facility] ICD-Ventricular Fibrillation 0 [facility] Implant Date 07/03/2005 [facility] Implant Date 11/30/2002 [facility] Lead Impedance (LV) 4047 ohm [facility] Lead Impedance (RV) 760 ohm [facility] Lead Impedance High Voltage 59 ohm [facility] Lead1 Mfg MDT [facility] Lead2 Mfg MDT [facility] Lead3 Mfg GDT [facility] Location LV [facility] Location RA [facility] Location RV [facility] Lower Rate (bpm) 80 {beats}/min [facility] LV PACING % 0 % [facility] Max Sensor Rate (bpm) 90 {beats}/min [facility] MDT_PROG_TACHY_ZONE_DE TECTIONS_STATUS ENABLED [facility] Model [id number] Viva XT SENIOR CLINICAL RESEARCH ASSOCIATE-D [facility] Model 4196 Attain Ability MRI SureScan [facility] Model 5076 CapSureFix Novus [facility] Model 0144 Endotak Endurance Rx [facility] Pacing Mode DDDR [facility] Serial Number [id number] [facility] Serial Number [id number] [facility] Serial Number [id number] [facility] Serial Number [id number] [facility] Test Charge Energy 18 J [facility] Test Charge Time 5.[address] [facility] Therapy Status (Vent) Enabled [facility] Thresh RA Capture Amplitude (volts) 0.625 V [facility] Thresh RA Capture Duration (ms) 0.4 ms [facility] Thresh RA Sensing Amplitude (mvolts) 2.875 mV [facility] Thresh RV Capture Amplitude (VOLTS) 1.375 V [facility] Thresh RV Capture Duration (MS) 0.4 ms [facility] Thresh RV Sensing Amplitude (MVOLTS) 11 mV [facility] Tracking Rate (bpm) 90 {beats}/min [facility] VF Zone Detection Interval 450 ms [facility] VF Zone Therapy Configuration 2 ATP(s) + 0 Shock(s) [facility] AV Delay Adaptive Paced Minimum (ms) 350 ms [facility] AV Delay Adaptive Rate Maximum (bpm) 90 {beats}/min [facility] AV Delay Adaptive Rate Minimum (bpm) 75 {beats}/min [facility] AV Delay Adaptive Sensed Minimum (ms) 250 ms [facility] AV Delay Adaptive Status ENABLED [facility] AV Delay Paced (ms) 100 ms [facility] AV Delay Sensed (ms) 70 ms [facility] Battery Voltage 2.78 V [facility] Scott RA Pacing Amplitude (volts) 2 V [facility] Scott RA Pacing Polarity BI [facility] Scott RA Pacing Pulse Width (ms) 0.4 ms [facility] Scott RA Sensing Amplitude (mvolts) 0.3 mV [facility] Scott RA Sensing Blanking Period (ms) 150 ms [facility] Scott RA Sensing Polarity BI [facility] Scott RA Sensing Refractory Period (ms) 250 ms [facility] Scott RV Pacing Amplitude (volts) 2.75 V [facility] Scott RV Pacing Polarity BI [facility] Scott RV Pacing Pulse Width (ms) 0.4 ms [facility] Scott RV Sensing Amplitude (mvolts) 0.3 mV [facility] Scott RV Sensing Blanking Period (ms) 200 ms [facility] Scott RV Sensing Polarity BI [facility] Detection Configuration (Vent) 2 - Zone [facility] FastVT_Detection Interval 450 ms [facility] FastVT_Therapy Configuration 2 ATP(s) + 0 Shock(s) [facility] ICD AFIB DetectionStatus DISABLED [facility] ICD ATAF DetectionInterval ms 450 ms [facility] ICD ATAF DetectionStatus ENABLED [facility] ICD ATAF TherapyConfiguration 2 ATP(s) + 0 Shock(s) [facility] ICD FastVT DetectionStatus ENABLED [facility] ICD-ADLRATE_BPM 85 {beats}/min [facility] ICD-AMS EPISODES 133 {beats}/min [facility] ICD-ATP Episodes (Vent) 0 [facility] ICD-ATRIALFIBRILLATION 0 [facility] ICD-Counters Cleared Date 09/23/2016 [facility] ICD-Device Mfg MDT [facility] ICD-LEADIMPEDANCEATRIA L 361 ohm [facility] ICD-Percent Pacing (Atrial) 98.5 % [facility] ICD-Percent Pacing (Vent) 99.69 % [facility] ICD-PMT Intervention ENABLED [facility] ICD-PVC Intervention ENABLED [facility] ICD-Rate Modulation Acceleration Reaction 30 s [facility] ICD-Rate Modulation Deceleration Exercise [facility] ICD-Rate Modulation [place] 3 [facility] ICD-Rate Modulation Threshold MediumHigh [facility] ICD-Shocks Aborted (Vent) 0 [facility] [id number] 0 [facility] ICD-SHOCKSABORTED 0 [facility] ICD-SHOCKSDELIVEREDVEN TRICULAR 0 [facility] ICD-Ventricular Fibrillation 0 [facility] Implant Date 07/03/2005 [facility] Implant Date 11/30/2002 [facility] Lead Impedance (LV) 4047 ohm [facility] Lead Impedance (RV) 760 ohm [facility] Lead Impedance High Voltage 62 ohm [facility] Lead1 Mfg MDT [facility] Lead2 Mfg MDT [facility] Lead3 Mfg GDT [facility] Location LV [facility] Location RA [facility] Location RV [facility] Lower Rate (bpm) 80 {beats}/min [facility] LV PACING % 0 % [facility] Max Sensor Rate (bpm) 90 {beats}/min [facility] MDT_PROG_TACHY_ZONE_DE TECTIONS_STATUS ENABLED [facility] Model [id number] Viva XT SENIOR CLINICAL RESEARCH ASSOCIATE-D [facility] Model 4196 Attain Ability MRI SureScan [facility] Model 5076 CapSureFix Novus [facility] Model 0144 Endotak Endurance Rx [facility] Pacing Mode DDDR [facility] Serial Number [id number] [facility] Serial Number [id number] [facility] Serial Number [id number] [facility] Serial Number [id number] [facility] Test Charge Energy 18 J [facility] Test Charge Time 5.[address] [facility] Therapy Status (Vent) Enabled [facility] Thresh RA Capture Amplitude (volts) 0.625 V [facility] Thresh RA Capture Duration (ms) 0.4 ms [facility] Thresh RA Sensing Amplitude (mvolts) 2.875 mV [facility] Thresh RV Capture Amplitude (VOLTS) 1.375 V [facility] Thresh RV Capture Duration (MS) 0.4 ms [facility] Thresh RV Sensing Amplitude (MVOLTS) 13.25 mV [facility] Tracking Rate (bpm) 90 {beats}/min [facility] VF Zone Detection Interval 450 ms [facility] VF Zone Therapy Configuration 2 ATP(s) + 0 Shock(s) [facility] No Panel Informationon 03-05 [facility] _ [facility] ICD-ATRIALTACHYCARDIA 0 [facility] ICD-Fast Ventricular Tachycardia 0 [facility] Implant Date 09/23/2016 [facility] BLANK _ [facility] ICD-ATRIALTACHYCARDIA 0 [facility] ICD-Fast Ventricular Tachycardia 0 [facility] Implant Date 09/23/2016 [facility] XR CSPINE 2_3 VIEWSon 2022 XR CSPINE [...] TENZIN ALEJO Date: 2023-01-27 10:58 Normal [facility] PROTIMEon 01-03-2023 INR Coag (PPP) [Relative time] 0.98 {INR} Normal [facility] Comment on above: Performed By: #### P T ####[facility] [id number] [place] [address]Dr. Melissa Helm INR GUIDELINES SEE BELOW Normal [facility] Comment on above: Result Comment: POOJA RED INR: 2.0 - 3.0 CONDITIONS NOT LISTED BELOW 2.5 - 3.5 FOR PROSTHETIC HEART VALVE REPLACEMENT 2.5 - 3.5 RECURRENT THROMBOSIS Performed By: #### P T ####[facility] [id number] [place] [address]DrTarun Helm PT Coag (PPP) [Time] 10.4 s Normal 9.0-11.6 [facility] Comment on above: Performed By: #### P T ####[facility] [id number] [place] [address]Dr. Melissa Helm XR SHOULDER RT 2V or [...] by: FAUSTO GONCALVES Date: 2023-01-03 13:54 Normal [facility] ICD REMOTE CHECKon 3 AV Delay Adaptive Paced Minimum (ms) 350 ms [facility] AV Delay Adaptive Rate Maximum (bpm) 90 {beats}/min [facility] AV Delay Adaptive Rate Minimum (bpm) 75 {beats}/min [facility] AV Delay Adaptive Sensed Minimum (ms) 250 ms [facility] AV Delay Adaptive Status ENABLED [facility] AV Delay Paced (ms) 100 ms [facility] AV Delay Sensed (ms) 70 ms [facility] Battery Voltage 2.81 V [facility] Scott RA Pacing Amplitude (volts) 2 V [facility] Scott RA Pacing Polarity BI [facility] Scott RA Pacing Pulse Width (ms) 0.4 ms [facility] Scott RA Sensing Amplitude (mvolts) 0.3 mV [facility] Scott RA Sensing Blanking Period (ms) 150 ms [facility] Scott RA Sensing Polarity BI [facility] Scott RA Sensing Refractory Period (ms) 250 ms [facility] Scott RV Pacing Amplitude (volts) 2.75 V [facility] Scott RV Pacing Polarity BI [facility] Scott RV Pacing Pulse Width (ms) 0.4 ms [facility] Sctot RV Sensing Amplitude (mvolts) 0.3 mV [facility] Scott RV Sensing Blanking Period (ms) 200 ms [facility] Scott RV Sensing Polarity BI [facility] Detection Configuration (Vent) 2 - Zone [facility] FastVT_Detection Interval 450 ms [facility] FastVT_Therapy Configuration 2 ATP(s) + 0 Shock(s) [facility] ICD AFIB DetectionStatus DISABLED [facility] ICD ATAF DetectionInterval ms 450 ms [facility] ICD ATAF DetectionStatus ENABLED [facility] ICD ATAF TherapyConfiguration 2 ATP(s) + 0 Shock(s) [facility] ICD FastVT DetectionStatus ENABLED [facility] ICD-ADLRATE_BPM 85 {beats}/min [facility] ICD-AMS EPISODES 133 {beats}/min [facility] ICD-ATP Episodes (Vent) 0 [facility] ICD-ATRIALFIBRILLATION 0 [facility] ICD-Counters Cleared Date 09/23/2016 [facility] ICD-Device Mfg MDT [facility] ICD-LEADIMPEDANCEATRIA L 342 ohm [facility] ICD-Percent Pacing (Atrial) 99.28 % [facility] ICD-Percent Pacing (Vent) 99.57 % [facility] ICD-PMT Intervention ENABLED [facility] ICD-PVC Intervention ENABLED [facility] ICD-Rate Modulation Acceleration Reaction 30 s [facility] ICD-Rate Modulation Deceleration Exercise [facility] ICD-Rate Modulation [place] 3 [facility] ICD-Rate Modulation Threshold MediumHigh [facility] ICD-Shocks Aborted (Vent) 0 [facility] [id number] 0 [facility] ICD-SHOCKSABORTED 0 [facility] ICD-SHOCKSDELIVEREDVEN TRICULAR 0 [facility] ICD-Ventricular Fibrillation 0 [facility] Implant Date 07/03/2005 [facility] Implant Date 11/30/2002 [facility] Lead Impedance (LV) 4047 ohm [facility] Lead Impedance (RV) 722 ohm [facility] Lead Impedance High Voltage 64 ohm [facility] Lead1 Mfg MDT [facility] Lead2 Mfg MDT [facility] Lead3 Mfg GDT [facility] Location LV [facility] Location RA [facility] Location RV [facility] Lower Rate (bpm) 80 {beats}/min [facility] LV PACING % 0 % [facility] Max Sensor Rate (bpm) 90 {beats}/min [facility] MDT_PROG_TACHY_ZONE_DE TECTIONS_STATUS ENABLED [facility] Model [id number] Viva XT SENIOR CLINICAL RESEARCH ASSOCIATE-D [facility] Model 4196 Attain Ability [facility] 5076 CapSureFix Novus [facility] Model 0144 Endotak Endurance Rx [facility] Pacing Mode DDDR [facility] Serial Number [id number] [facility] Serial Number [id number] [facility] Serial Number [id number] [facility] Serial Number [id number] [facility] Test Charge Energy 18 J [facility] Test Charge Time 4.[address] [facility] Therapy Status (Vent) Enabled [facility] Thresh RA Capture Amplitude (volts) 0.625 V [facility] Thresh RA Capture Duration (ms) 0.4 ms [facility] Thresh RA Sensing Amplitude (mvolts) 2 mV [facility] Thresh RV Capture Amplitude (VOLTS) 1.375 V [facility] Thresh RV Capture Duration (MS) 0.4 ms [facility] Thresh RV Sensing Amplitude (MVOLTS) 7.5 mV [facility] Tracking Rate (bpm) 90 {beats}/min [facility] VF Zone Detection Interval 450 ms [facility] VF Zone Therapy Configuration 2 ATP(s) + 0 Shock(s) [facility] No Panel Informationon 11-28 BLANK _ [facility] ICD-ATRIALTACHYCARDIA 0 [facility] ICD-Fast Ventricular Tachycardia 0 [facility] Implant Date 09/23/2016 [facility] NM BONE IMAGE 3 PHASEon 10-01 NM [...] JC BRAVO Date: 2022-10-26 13:35 Normal [facility] TRANSFERRINon 10-07-2022 Transferrin [Mass/Vol] 354 mg/dL Normal 192-364 Th [facility] Comment on above: Performed By: #### T RANSFR #### [facility] [address] [place] [address] Dr. Melissa Helm CBC AUTO DIFFon 10-06-2022 BASO # 0.1 103/ul Normal 0.0-0.1 [facility] Comment on above: Performed By: #### C BC #### [facility] [address] [place] [address] Dr. Melissa Helm Basophils/100 WBC (Bld) 0.9 % Normal 0.2-2.0 [facility] Comment on above: Performed By: #### C BC #### [facility] [address] [place] [address] Dr. Melissa Helm EO # 0.4 103/ul Normal 0.0-0.7 [facility] Comment on above: Performed By: #### C BC #### [facility] [address] [place] [address] Dr. Melissa Helm Eosinophils/100 WBC (Bld) 2.7 % Normal 0.9-7.0 [facility] Comment on above: Performed By: #### C BC #### [facility] [address] [place] [address] Dr. Melissa Helm Erythrocyte distribution width (RBC) [Ratio] 20.8 % Critically high 11.0-15.0 [facility] Comment on above: Performed By: #### C BC #### [facility] [address] [place] [address] Dr. Melissa Helm Hematocrit (Bld) [Volume fraction] 38.3 % Normal 36.0-48.0 [facility] Comment on above: Performed By: #### C BC #### [facility] [address] [place] [address] Dr. Melissa Helm Hemoglobin (Bld) [Mass/Vol] 10.8 g/dL Critically low 12.0-16.0 [facility] Comment on above: Performed By: #### C BC #### [facility] [address] [place] [address] Dr. Melissa Helm IG # 0.07 10e3/ul Critically high 0.00-0.03 [facility] Comment on above: Performed By: #### C BC #### [facility] [address] [place] [address] Dr. Melissa Helm IG % 0.5 % Normal 0.0-0.5 [facility] Comment on above: Performed By: #### C BC #### [facility] [address] [place] [address] Dr. Melissa Helm LYMPH # 2.2 103/ul Normal 1.2-3.8 [facility] Comment on above: Performed By: #### C BC #### [facility] [address] [place] [address] Dr. Melissa Helm Lymphocytes/100 WBC (Bld) 17.5 % Critically low 20.5-60.0 [facility] Comment on above: Performed By: #### C BC #### [facility] [address] [place] [address] Dr. Melissa Helm MANUAL DIFF REQ NO Normal [facility] Comment on above: Performed By: #### C BC #### [facility] [address] [place] [address] Dr. Melissa Helm [facility] (RBC) [Entitic mass] 20.6 pg Critically low 26.7-34.0 [facility] Comment on above: Performed By: #### C BC #### [facility] [address] [place] [address] Dr. Melissa Helm MCHC (RBC) [Mass/Vol] 28.2 g/dL Critically low 29.9-35.2 [facility] Comment on above: Performed By: #### C BC #### [facility] [address] [place] [address] Dr. Melissa Helm MCV (RBC) [Entitic vol] 73.0 fL Critically low 81.0-99.0 [facility] Comment on above: Performed By: #### C BC #### [facility] [address] [place] [address] Dr. Melissa Helm MONO # 1.2 103/ul Critically high 0.3-0.8 [facility] Comment on above: Performed By: #### C BC #### [facility] [address] [place] [address] Dr. Melissa Helm Monocytes/100 WBC (Bld) 9.0 % Normal 1.7-12.0 [facility] Comment on above: Performed By: #### C BC #### [facility] [address] [place] [address] Dr. Melissa Helm NEUT # 8.9 103/ul Critically high 1.4-6.5 [facility] Comment on above: Performed By: #### C BC #### [facility] [address] [place] [address] Dr. Melissa Helm Neutrophils/100 WBC (Bld) 69.4 % Normal 43.0-75.0 [facility] Comment on above: Performed By: #### C BC #### [facility] [address] [address] [address] Melissa Helm PLT 184 103/ul Normal 150-450 [facility] Comment on above: Performed By: #### C BC #### [facility] [address] [place] [address] Dr. Melissa Helm RBC 5.25 106/ul Normal 4.20-5.40 [facility] Comment on above: Performed By: #### C BC #### [facility] [address] [place] [address] Dr. Melissa Helm WBC 12.8 103/ul Critically high 4.0-11.0 [facility] Comment on above: Performed By: #### C BC #### [facility] [address] [place] [address] Dr. Melissa Helm FERRITINon 10-06-2022 Ferritin [Mass/Vol] 33.0 ng/mL Normal 8.0-252.0 [facility] Comment on above: Performed By: #### F ERR, FETIBC #### [facility] [address] [place] [address] Dr. Melissa Helm IRON AND TIBCon 10-06-2022 % SATURATION 20.3 % Normal [facility] Comment on above: Performed By: #### F ERR, FETIBC #### [facility] [address] [place] [address] Dr. Melissa Helm Iron [Mass/Vol] 89.0 ug/dL Normal 50.0-170.0 [facility] Comment on above: Performed By: #### F ERR, FETIBC #### [facility] [address] [place] [address] Dr. Melissa Helm TIBC DIRECT 438.0 ug/dL Normal 250.0-450. 0 [facility] Comment on above: Performed By: #### F ERR, FETIBC #### [facility] [address] [place] [address] Dr. Melissa Juárez 09-11-2022 CNPN Telephone (CARDMN) ----- ESSENCE VINCENT ([id number]) 1970 F Date Time Provider Department 09/11/22 [...] Reason for Visit: Research [293] Cmt: IRB [id number] TRIM-AF Prescriptions as of 09/11/2022 - torsemide [...] medications are managed by this patient by: CHELSEA Mcmahon PharmD asa LD 11-5-12 Problem List As [...] [I34.0] 07/16/2012 Pulmonary hypertension [I27.20] Dual chamber SENIOR CLINICAL RESEARCH ASSOCIATE-D [Z95.810] 07/23/2020 Primary hypertension [I10] Nicotine use disorder [F17.200] Exercise-induced asthma [J45.990] Anemia [D64.9] 10/29/2011 07/23/2020 H/o GERD [K21.9] 07/23/2020 Migraines [G43.909] H/o Depression/Anxiety/Sleep disturbance [F32.* Preop testing [Z01.818] 07/08/2012 07/23/2020 SUMMARY [V999.95] 07/11/2012 07/23/2020 Pulmonary hypertension, moderate to severe (HCC*2012 Other acute postoperative pain [G89.18] 07/13/2012 07/16/2012 Pulmonary insuff [BIZ1215] 07/13/2012 07/23/2020 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 [...] Status:Closed by NADIR BRANDT on 09/11/22 Normal [facility] ICD REMOTE CHECKon 2 AV Delay Adaptive Paced Minimum (ms) 350 ms [facility] AV Delay Adaptive Rate Maximum (bpm) 90 {beats}/min [facility] AV Delay Adaptive Rate Minimum (bpm) 75 {beats}/min [facility] AV Delay Adaptive Sensed Minimum (ms) 250 ms [facility] AV Delay Adaptive Status ENABLED [facility] AV Delay Paced (ms) 100 ms [facility] AV Delay Sensed (ms) 70 ms [facility] Battery Voltage 2.85 V [facility] Scott RA Pacing Amplitude (volts) 2 V [facility] Scott RA Pacing Polarity BI [facility] Scott RA Pacing Pulse Width (ms) 0.4 ms [facility] Scott RA Sensing Amplitude (mvolts) 0.3 mV [facility] Scott RA Sensing Blanking Period (ms) 150 ms [facility] Scott RA Sensing Polarity BI [facility] Scott RA Sensing Refractory Period (ms) 250 ms [facility] Scott RV Pacing Amplitude (volts) 2.5 V [facility] Scott RV Pacing Polarity BI [facility] Scott RV Pacing Pulse Width (ms) 0.4 ms [facility] Scott RV Sensing Amplitude (mvolts) 0.3 mV [facility] Scott RV Sensing Blanking Period (ms) 200 ms [facility] Scott RV Sensing Polarity BI [facility] Detection Configuration (Vent) 2 - Zone [facility] FastVT_Detection Interval 450 ms [facility] FastVT_Therapy Configuration 2 ATP(s) + 0 Shock(s) [facility] ICD AFIB DetectionStatus DISABLED [facility] ICD ATAF DetectionInterval ms 450 ms [facility] ICD ATAF DetectionStatus ENABLED [facility] ICD ATAF TherapyConfiguration 2 ATP(s) + 0 Shock(s) [facility] ICD FastVT DetectionStatus ENABLED [facility] ICD-ADLRATE_BPM 85 {beats}/min [facility] ICD-AMS EPISODES 133 {beats}/min [facility] ICD-ATP Episodes (Vent) 0 [facility] ICD-ATRIALFIBRILLATION 4 Cl [facility] ICD-ATRIALTACHYCARDIA 4 [facility] ICD-Counters Cleared Date 09/23/2016 [facility] ICD-Device Mfg T [facility] ICD-LEADIMPEDANCEATRIA L 361 ohm [facility] ICD-Percent Pacing (Atrial) 79.65 % [facility] ICD-Percent Pacing (Vent) 98.96 % [facility] ICD-PMT Intervention ENABLED [facility] ICD-PVC Intervention ENABLED [facility] ICD-Rate Modulation Acceleration Reaction 30 s [facility] ICD-Rate Modulation Deceleration Exercise [facility] ICD-Rate Modulation [place] 3 [facility] ICD-Rate Modulation Threshold MediumHigh [facility] ICD-Shocks Aborted (Vent) 0 [facility] [id number] 0 [facility] ICD-SHOCKSABORTED 0 [facility] ICD-SHOCKSDELIVEREDVEN TRICULAR 0 [facility] ICD-Ventricular Fibrillation 0 [facility] Implant Date 07/03/2005 [facility] Implant Date 11/30/2002 [facility] Lead Impedance (LV) 4047 ohm [facility] Lead Impedance (RV) 722 ohm [facility] Lead Impedance High Voltage 63 ohm [facility] Lead1 Mfg MDT [facility] Lead2 Mfg MDT [facility] Lead3 Mfg GDT [facility] Location LV [facility] Location RA [facility] Location RV [facility] Lower Rate (bpm) 80 {beats}/min [facility] LV PACING % 0 % [facility] Max Sensor Rate (bpm) 90 {beats}/min [facility] RENATO_PROG_TACHY_ZONE_DE TECTIONS_STATUS ENABLED [facility] Model [id number] Viva XT SENIOR CLINICAL RESEARCH ASSOCIATE-D [facility] Model 4196 Attain Ability MRI SureScan [facility] Model 5076 CapSureFix Novus [facility] Model 0144 Endotak Endurance Rx [facility] Pacing Mode DDDR [facility] Serial Number [id number] [facility] Serial Number [id number] [facility] Serial Number [id number] [facility] Serial Number [id number] [facility] Test Charge Energy 18 J [facility] Test Charge Time 4.[address] [facility] Therapy Status (Vent) Enabled [facility] Thresh RA Capture Amplitude (volts) 0.625 V [facility] Thresh RA Capture Duration (ms) 0.4 ms [facility] Thresh RA Sensing Amplitude (mvolts) 2.375 mV [facility] Thresh RV Capture Amplitude (VOLTS) 1.25 V [facility] Thresh RV Capture Duration (MS) 0.4 ms [facility] Thresh RV Sensing Amplitude (MVOLTS) 12 mV [facility] Tracking Rate (bpm) 90 {beats}/min [facility] VF Zone Detection Interval 450 ms [facility] VF Zone Therapy Configuration 2 ATP(s) + 0 Shock(s) [facility] No Panel Informationon 08-25 BLANK _ [facility] ICD-ATRIALTACHYCARDIA 0 [facility] ICD-Fast Ventricular Tachycardia 0 [facility] Implant Date 09/23/2016 [facility] ICD REMOTE CHECKon 2 AV Delay Adaptive Paced Minimum (ms) 350 ms [facility] AV Delay Adaptive Rate Maximum (bpm) 90 {beats}/min [facility] AV Delay Adaptive Rate Minimum (bpm) 75 {beats}/min [facility] AV Delay Adaptive Sensed Minimum (ms) 250 ms [facility] AV Delay Adaptive Status ENABLED [facility] AV Delay Paced (ms) 100 ms [facility] AV Delay Sensed (ms) 70 ms [facility] Battery Voltage 2.86 V [facility] Scott RA Pacing Amplitude (volts) 2 V [facility] Scott RA Pacing Polarity BI [facility] Scott RA Pacing Pulse Width (ms) 0.4 ms [facility] Scott RA Sensing Amplitude (mvolts) 0.3 mV [facility] Scott RA Sensing Blanking Period (ms) 150 ms [facility] Scott RA Sensing Polarity BI [facility] Scott RA Sensing Refractory Period (ms) 250 ms [facility] Scott RV Pacing Amplitude (volts) 3 V [facility] Scott RV Pacing Polarity BI [facility] Scott RV Pacing Pulse Width (ms) 0.4 ms [facility] Scott RV Sensing Amplitude (mvolts) 0.3 mV [facility] Scott RV Sensing Blanking Period (ms) 200 ms [facility] Scott RV Sensing Polarity BI [facility] Detection Configuration (Vent) 2 - Zone [facility] FastVT_Detection Interval 450 ms [facility] FastVT_Therapy Configuration 2 ATP(s) + 0 Shock(s) [facility] ICD AFIB DetectionStatus DISABLED [facility] ICD ATAF DetectionInterval ms 450 ms [facility] ICD ATAF DetectionStatus ENABLED [facility] ICD ATAF TherapyConfiguration 2 ATP(s) + 0 Shock(s) [facility] ICD FastVT DetectionStatus ENABLED [facility] ICD-ADLRATE_BPM 85 {beats}/min [facility] ICD-AMS EPISODES 133 {beats}/min [facility] ICD-ATP Episodes (Vent) 0 [facility] ICD-ATRIALFIBRILLATION 1 [facility] ICD-ATRIALTACHYCARDIA 1 [facility] ICD-Counters Cleared Date 09/23/2016 [facility] ICD-Device Sri GROSS [facility] ICD-LEADIMPEDANCEATRIA L 361 ohm [facility] ICD-Percent Pacing (Atrial) 84.32 % [facility] ICD-Percent Pacing (Vent) 99.05 % [facility] ICD-PMT Intervention ENABLED [facility] ICD-PVC Intervention ENABLED [facility] ICD-Rate Modulation Acceleration Reaction 30 s [facility] ICD-Rate Modulation Deceleration Exercise [facility] ICD-Rate Modulation [place] 3 [facility] ICD-Rate Modulation Threshold MediumHigh [facility] ICD-Shocks Aborted (Vent) 0 [facility] [id number] 0 [facility] ICD-SHOCKSABORTED 0 [facility] ICD-SHOCKSDELIVEREDVEN TRICULAR 0 [facility] ICD-Ventricular Fibrillation 0 [facility] Implant Date 07/03/2005 [facility] Implant Date 11/30/2002 [facility] Lead Impedance (LV) 4047 ohm [facility] Lead Impedance (RV) 722 ohm [facility] Lead Impedance High Voltage 63 ohm [facility] Lead1 Sri GROSS [facility] Lead2 Sri GROSS [facility] Lead3 Mfg GDT [facility] Location LV [facility] Location RA [facility] Location RV [facility] Lower Rate (bpm) 80 {beats}/min [facility] LV PACING % 0 % [facility] Max Sensor Rate (bpm) 90 {beats}/min [facility] MDT_PROG_TACHY_ZONE_DE TECTIONS_STATUS ENABLED [facility] Model [id number] Viva XT SENIOR CLINICAL RESEARCH ASSOCIATE-D [facility] Model 4196 Attain Ability MRI SureScan [facility] Model 5076 CapSureFix Novus [facility] Model 0144 Endotak Endurance Rx [facility] Pacing Mode DDDR [facility] Serial Number [id number] [facility] Serial Number [id number] [facility] Serial Number [id number] [facility] Serial Number [id number] [facility] Test Charge Energy 18 J [facility] Test Charge Time 4.[address] [facility] Therapy Status (Vent) Enabled [facility] Thresh RA Capture Amplitude (volts) 0.625 V [facility] Thresh RA Capture Duration (ms) 0.4 ms [facility] Thresh RA Sensing Amplitude (mvolts) 3.125 mV [facility] Thresh RV Capture Amplitude (VOLTS) 1.5 V [facility] Thresh RV Capture Duration (MS) 0.4 ms [facility] Thresh RV Sensing Amplitude (MVOLTS) 10.75 mV [facility] Tracking Rate (bpm) 90 {beats}/min [facility] VF Zone Detection Interval 450 ms [facility] VF Zone Therapy Configuration 2 ATP(s) + 0 Shock(s) [facility] No Panel Informationon 07-01 BLANK _ [facility] ICD-ATRIALTACHYCARDIA 0 [facility] ICD-Fast Ventricular Tachycardia 0 [facility] Implant Date 09/23/2016 [facility] ICD REMOTE CHECKon 2 AV Delay Adaptive Paced Minimum (ms) 350 ms [facility] AV Delay Adaptive Rate Maximum (bpm) 90 {beats}/min [facility] AV Delay Adaptive Rate Minimum (bpm) 75 {beats}/min [facility] AV Delay Adaptive Sensed Minimum (ms) 250 ms [facility] AV Delay Adaptive Status ENABLED [facility] AV Delay Paced (ms) 100 ms [facility] AV Delay Sensed (ms) 70 ms [facility] Battery Voltage 2.85 V [facility] Scott LV Pacing Polarity BI [facility] Scott RA Pacing Amplitude (volts) 2 V [facility] Scott RA Pacing Polarity BI [facility] Scott RA Pacing Pulse Width (ms) 0.4 ms [facility] Scott RA Sensing Amplitude (mvolts) 0.3 mV [facility] Scott RA Sensing Blanking Period (ms) 150 ms [facility] Scott RA Sensing Polarity BI [facility] Scott RA Sensing Refractory Period (ms) 250 ms [facility] Scott RV Pacing Amplitude (volts) 2.75 V [facility] Scott RV Pacing Polarity BI [facility] Scott RV Pacing Pulse Width (ms) 0.4 ms [facility] Scott RV Sensing Amplitude (mvolts) 0.3 mV [facility] Scott RV Sensing Blanking Period (ms) 200 ms [facility] Scott RV Sensing Polarity BI [facility] Detection Configuration (Vent) 2 - Zone [facility] FastVT_Detection Interval 450 ms [facility] FastVT_Therapy Configuration 2 ATP(s) + 0 Shock(s) [facility] ICD AFIB DetectionStatus DISABLED [facility] ICD ATAF DetectionInterval ms 450 ms [facility] ICD ATAF DetectionStatus ENABLED [facility] ICD ATAF TherapyConfiguration 2 ATP(s) + 0 Shock(s) [facility] ICD FastVT DetectionStatus ENABLED [facility] ICD-ADLRATE_BPM 85 {beats}/min [facility] ICD-AMS EPISODES 133 {beats}/min [facility] ICD-ATP Episodes (Vent) 0 [facility] ICD-ATRIALFIBRILLATION 117 Cl [facility] ICD-ATRIALTACHYCARDIA 117 [facility] ICD-Counters Cleared Date 09/23/2016 [facility] ICD-Device Mfg MDT [facility] ICD-LEADIMPEDANCEATRIA L 342 ohm [facility] ICD-Percent Pacing (Atrial) 67.54 % [facility] ICD-Percent Pacing (Vent) 96.8 % [facility] ICD-PMT Intervention ENABLED [facility] ICD-PVC Intervention ENABLED [facility] ICD-Rate Modulation Acceleration Reaction 30 s [facility] ICD-Rate Modulation Deceleration Exercise [facility] ICD-Rate Modulation [place] 3 [facility] ICD-Rate Modulation Threshold MediumHigh [facility] ICD-Shocks Aborted (Vent) 0 [facility] [id number] 0 [facility] ICD-SHOCKSABORTED 0 [facility] ICD-SHOCKSDELIVEREDVEN TRICULAR 0 [facility] ICD-Ventricular Fibrillation 0 [facility] Implant Date 07/03/2005 [facility] Implant Date 11/30/2002 [facility] Lead Impedance (LV) 4047 ohm [facility] Lead Impedance (RV) 703 ohm [facility] Lead Impedance High Voltage 60 ohm [facility] Lead1 Mfg MDT [facility] Lead2 Mfg MDT [facility] Lead3 Mfg GDT [facility] Location LV [facility] Location RA [facility] Location RV [facility] Lower Rate (bpm) 80 {beats}/min [facility] LV PACING % 0 % [facility] Max Sensor Rate (bpm) 90 {beats}/min [facility] MDT_PROG_TACHY_ZONE_DE TECTIONS_STATUS ENABLED [facility] Model [id number] Viva XT SENIOR CLINICAL RESEARCH ASSOCIATE-D [facility] Model 4196 Attain Ability MRI SureScan [facility] Model 5076 CapSureFix Novus [facility] Model 0144 Endotak Endurance Rx [facility] Pacing Mode DDDR [facility] Serial Number [id number] [facility] Serial Number [id number] [facility] Serial Number [id number] [facility] Serial Number [id number] [facility] Test Charge Energy 18 J [facility] Test Charge Time 4.[address] [facility] Therapy Status (Vent) Enabled [facility] Thresh RA Capture Amplitude (volts) 0.625 V [facility] Thresh RA Capture Duration (ms) 0.4 ms [facility] Thresh RA Sensing Amplitude (mvolts) 2 mV [facility] Thresh RV Capture Amplitude (VOLTS) 1.375 V [facility] Thresh RV Capture Duration (MS) 0.4 ms [facility] Thresh RV Sensing Amplitude (MVOLTS) 10.375 mV [facility] Tracking Rate (bpm) 90 {beats}/min [facility] VF Zone Detection Interval 450 ms [facility] VF Zone Therapy Configuration 2 ATP(s) + 0 Shock(s) [facility] AV Delay Adaptive Paced Minimum (ms) 350 ms [facility] AV Delay Adaptive Rate Maximum (bpm) 90 {beats}/min [facility] AV Delay Adaptive Rate Minimum (bpm) 75 {beats}/min [facility] AV Delay Adaptive Sensed Minimum (ms) 250 ms [facility] AV Delay Adaptive Status ENABLED [facility] AV Delay Paced (ms) 100 ms [facility] AV Delay Sensed (ms) 70 ms [facility] Battery Voltage 2.85 V [facility] Scott LV Pacing Polarity BI [facility] Scott RA Pacing Amplitude (volts) 2 V [facility] Scott RA Pacing Polarity BI [facility] Scott RA Pacing Pulse Width (ms) 0.4 ms [facility] Scott RA Sensing Amplitude (mvolts) 0.3 mV [facility] Scott RA Sensing Blanking Period (ms) 150 ms [facility] Scott RA Sensing Polarity BI [facility] Scott RA Sensing Refractory Period (ms) 250 ms [facility] Scott RV Pacing Amplitude (volts) 2.75 V [facility] Scott RV Pacing Polarity BI [facility] Scott RV Pacing Pulse Width (ms) 0.4 ms [facility] Scott RV Sensing Amplitude (mvolts) 0.3 mV [facility] Scott RV Sensing Blanking Period (ms) 200 ms [facility] Scott RV Sensing Polarity BI [facility] Detection Configuration (Vent) 2 - Zone [facility] FastVT_Detection Interval 450 ms [facility] FastVT_Therapy Configuration 2 ATP(s) + 0 Shock(s) [facility] ICD AFIB DetectionStatus DISABLED [facility] ICD ATAF DetectionInterval ms 450 ms [facility] ICD ATAF DetectionStatus ENABLED [facility] ICD ATAF TherapyConfiguration 2 ATP(s) + 0 Shock(s) [facility] ICD FastVT DetectionStatus ENABLED [facility] ICD-ADLRATE_BPM 85 {beats}/min [facility] ICD-AMS EPISODES 133 {beats}/min [facility] ICD-ATP Episodes (Vent) 0 [facility] ICD-ATRIALFIBRILLATION 117 Cl [facility] ICD-ATRIALTACHYCARDIA 117 [facility] ICD-Counters Cleared Date 09/23/2016 [facility] ICD-Device Mfg MDT [facility] ICD-LEADIMPEDANCEATRIA L 342 ohm [facility] ICD-Percent Pacing (Atrial) 67.54 % [facility] ICD-Percent Pacing (Vent) 96.8 % [facility] ICD-PMT Intervention ENABLED [facility] ICD-PVC Intervention ENABLED [facility] ICD-Rate Modulation Acceleration Reaction 30 s [facility] ICD-Rate Modulation Deceleration Exercise [facility] ICD-Rate Modulation [place] 3 [facility] ICD-Rate Modulation Threshold MediumHigh [facility] ICD-Shocks Aborted (Vent) 0 [facility] [id number] 0 [facility] ICD-SHOCKSABORTED 0 [facility] ICD-SHOCKSDELIVEREDVEN TRICULAR 0 [facility] ICD-Ventricular Fibrillation 0 [facility] Implant Date 07/03/2005 [facility] Implant Date 11/30/2002 [facility] Lead Impedance (LV) 4047 ohm [facility] Lead Impedance (RV) 703 ohm [facility] Lead Impedance High Voltage 60 ohm [facility] Lead1 Mfg MDT [facility] Lead2 Mfg MDT [facility] Lead3 Mfg GDT [facility] Location LV [facility] Location RA [facility] Location RV [facility] Lower Rate (bpm) 80 {beats}/min [facility] LV PACING % 0 % [facility] Max Sensor Rate (bpm) 90 {beats}/min [facility] MDT_PROG_TACHY_ZONE_DE TECTIONS_STATUS ENABLED [facility] Model [id number] Viva XT SENIOR CLINICAL RESEARCH ASSOCIATE-D [facility] Model 4196 Attain Ability [facility] Model 5076 CapSureFix Novus [facility] Model 0144 [employer]otak Endurance Rx [facility] Pacing Mode DDDR [facility] Serial Number [id number] [facility] Serial Number [id number] [facility] Serial Number [id number] [facility] Serial Number [id number] [facility] Test Charge Energy 18 J [facility] Test Charge Time 4.[address] [facility] Therapy Status (Vent) Enabled [facility] Thresh RA Capture Amplitude (volts) 0.625 V [facility] Thresh RA Capture Duration (ms) 0.4 ms [facility] Thresh RA Sensing Amplitude (mvolts) 2 mV [facility] Thresh RV Capture Amplitude (VOLTS) 1.375 V [facility] Thresh RV Capture Duration (MS) 0.4 ms [facility] Thresh RV Sensing Amplitude (MVOLTS) 10.375 mV [facility] Tracking Rate (bpm) 90 {beats}/min [facility] VF Zone Detection Interval 450 ms [facility] VF Zone Therapy Configuration 2 ATP(s) + 0 Shock(s) [facility] No Panel Informationon 06-01 BLANK _ [facility] ICD-ATRIALTACHYCARDIA 0 [facility] ICD-Fast Ventricular Tachycardia 0 [facility] Implant Date 09/23/2016 [facility] BLANK _ [facility] ICD-ATRIALTACHYCARDIA 0 [facility] ICD-Fast Ventricular Tachycardia 0 [facility] Implant Date 09/23/2016 [facility] Office Visit (Cardiology)on 04-24-2022 Follow-up visit Diagnoses/Problems [...] Pacemaker Interrogation; Status:Active - Retrospective Authorization; Requested for:[id number]; Health Maintenance Renew: Isosorbide Mononitrate ER 30 MG Oral Tablet Extended Release 24 Hour; TAKE 1 TABLET DAILY Avoid alcoholic beverages.; Status:Complete - Retrospective Authorization; Done: [id number] Avoid foods and beverages that contain caffeine.; Status:Complete - Retrospective Authorization; Done: [id number] Begin or continue regular aerobic exercise. Gradually work up to at least 3 sessions of 30 minutes of exercise a week.; Status:Complete - Retrospective Authorization; Done: [id number] Diets that are low in carbohydrates and high in protein are very popular for weight loss.; Status:Complete - Retrospective Authorization; Done: [id number] Eat a low fat and low cholesterol diet.; Status:Complete - Retrospective Authorization; Done: [id number] Please bring all medicines, vitamins, and herbal supplements with you when you come to the office.; Status:Complete - Retrospective Authorization; Done: [id number] Restrict the salt in your diet by avoiding highly salted foods.; Status:Complete - Retrospective Authorization; Done: [id number] Health Maintenance, Overweight with body mass index (BMI) of 29 to 29.9 in adult Losing just 5 to 10 pounds may lower your risk of health problems.; Status:Complete - Retrospective Authorization; Done: [id number] SocHx: Former smoker Tobacco Use Screening; Status:Complete; Done: 82Alz8783 Patient Instructions Follow up with Dr. Nunez in 6 months and 1 year with a device check. Drink plenty of water daily. Latesha Eaton CMA, am scribing for and in the presence of, Dr. Margareth Nunez, VANDA, FACC, FACP, RS. No list or bottles for comparison, patient or family member to call with any updates [phone] The provider reviewed the following test(s) and [...] for details. She has remote history of RI , cardiogenic shock, PCI circumflex and iABP, with persistent severe LV dysfunction. She later occluded her cicumflex. Years later, she had HF and severe MR and underwent mitral valve repair at [facility]. She had recurrent VT and atrial arrhythmias, and underwent several ablations and repeat percutaneous MVR at [facility]. After her MVR and ablation in July,, she had KALLI when then improved. She has had recurrent ICD shocks for atrial flutter. Personal review of ECG and cardiac data reviewed Outside records: EP study and successful ablation of atrial flutter. Multiple atrial tachycardias, possible left atrial tachycardia also noted and not targeted for ablation. December 2021. Discharge summary [facility] Oct 2021 Cardiology consult Oct 2021 ECG [...] heart failur (more content not included)... Normal Tangled Tobacco Screening.on 022 Fall risk assessment a) No falls within the last year [facility] [employer] DO Work Phone: Tobacco use status [facility] a) Yes [facility] [employer] DO Work Phone: Tobacco Screening. Yes [facility] [address] DO Work Phone: XR LSPINE 2_3 [...] JC BRAVO Date: 2022-04-24 07:14 Normal [facility] TRANSFERRINon 04-17-2022 Transferrin [Mass/Vol] 418 mg/dL Critically high 192-364 [facility] Comment on above: Performed By: #### T RANSFR #### [facility] [address] [place], [place] [address] Dr. Melissa Helm CBC AUTO DIFFon 04-16-2022 BASO # 0.2 103/ul Critically high 0.0-0.1 [facility] Comment on above: Performed By: #### C BC ####[facility] [address] [place] [address]Dr. Melissa Helm Basophils/100 WBC (Bld) 1.2 % Normal 0.2-2.0 [facility] Comment on above: Performed By: #### C BC ####[facility] [address] [place] [id number]. Melissa Helm EO # 0.2 103/ul Normal 0.0-0.7 [facility] Comment on above: Performed By: #### C BC ####[facility] [address] [place] [id number]. Melissa Helm Eosinophils/100 WBC (Bld) 1.9 % Normal 0.9-7.0 [facility] Comment on above: Performed By: #### C BC ####[facility] [address] [place] [id number]. Melissa Helm Erythrocyte distribution width (RBC) [Ratio] 22.6 % Critically high 11.0-15.0 [facility] Comment on above: Performed By: #### C BC ####[facility] [address]ard[address] [place] [address]Dr. Melissa Helm Hematocrit (Bld) [Volume fraction] 39.2 % Normal 36.0-48.0 [facility] Comment on above: Performed By: #### C BC ####[facility] [address]ohyvl[address] [place] [address]DrTarun Helm Hemoglobin (Bld) [Mass/Vol] 10.8 g/dL Critically low 12.0-16.0 [facility] Comment on above: Performed By: #### C BC ####[facility] [address] [place], [place] [address]DrTarun Helm IG # 0.03 10e3/ul Normal 0.00-0.03 [facility] Comment on above: Performed By: #### C BC ####[facility] [address] [place], [place] [address]DrTarun Helm IG % 0.2 % Normal 0.0-0.5 [facility] Comment on above: Performed By: #### C BC ####[facility] Namw[address] [place], [place] [address]DrTarun Helm LYMPH # 2.5 103/ul Normal 1.2-3.8 [facility] Comment on above: Performed By: #### C BC ####[facility] [address] [place], [place] [address]DrTarun Helm Lymphocytes/100 WBC (Bld) 19.8 % Critically low 20.5-60.0 [facility] Comment on above: Performed By: #### C BC ####[facility] [address] [place], [place] [address]DrTarun Helm MANUAL DIFF REQ NO Normal [facility] Comment on above: Performed By: #### C BC ####[facility] [address] [place], [place] [address]DrTarun Helm MCH (RBC) [Entitic mass] 18.6 pg Critically low 26.7-34.0 [facility] Comment on above: Performed By: #### C BC ####[facility] [address] [place], [place] [address]DrTarun Helm MCHC (RBC) [Mass/Vol] 27.6 g/dL Critically low 29.9-35.2 [facility] Comment on above: Performed By: #### C BC ####[facility] [address] [place] [address]DrTarun Melissa Helm MCV (RBC) [Entitic vol] 67.4 fL Critically low 81.0-99.0 [facility] Comment on above: Performed By: #### C BC ####[facility] [address]se[address]ud[address] [place] [address]DrTarun Melissa Helm MONO # 1.2 103/ul Critically high 0.3-0.8 [facility] Comment on above: Performed By: #### C BC ####[facility] F[address] [place], [place] [address]DrTarun Melissa Volodymyr Monocytes/100 WBC (Bld) 10.0 % Normal 1.7-12.0 [facility] Comment on above: Performed By: #### C BC ####[facility] [address] [place], [place] [address]DrTarun Melissa Helm NEUT # 8.3 103/ul Critically high 1.4-6.5 [facility] Comment on above: Performed By: #### C BC ####[facility] Banknfuj[address] [place], [place] [address]DrTarun Melissa Volodymyr Neutrophils/100 WBC (Bld) 66.9 % Normal 43.0-75.0 [facility] Comment on above: Performed By: #### C BC ####[facility] [address] [place] [address]DrTarun Cortesdomingo Volodymyr PLT 235 103/ul Normal 150-450 [facility] Comment on above: Performed By: #### C BC ####[facility] [address] [place], [place] [address]DrTarun Cortesdomingo Volodymyr RBC 5.82 106/ul Critically high 4.20-5.40 [facility] Comment on above: Performed By: #### C BC ####[facility] [address] [place], [place] [address]DrTarun Cortesdomingo Volodymyr WBC 12.4 103/ul Critically high 4.0-11.0 [facility] Comment on above: Performed By: #### C BC ####[facility] [address] [place] [address]Dr. Melissa Helm FERRITINon 04-16-2022 Ferritin [Mass/Vol] 27.0 ng/mL Normal 8.0-252.0 [facility] Comment on above: Performed By: #### F ETIBC, FERR ####[facility] [address]qa[address] [place] [address]Dr. Melissa Helm FREE T3on 04-16-2022 FREE T3 3.09 pg/mlL Normal 2.18-3.98 [facility] Comment on above: Performed By: #### C MP, FT3, LIPID, TSH ####[facility] [address]ys[address] [place] [address]Dr. Melissa Helm IRON AND TIBCon 04-16-2022 % SATURATION 5.4 % Normal [facility] Comment on above: Performed By: #### F ETIBC, FERR ####[facility] [address]fshy[address] [place] [address]Dr. Melissa Helm Iron [Mass/Vol] 26.0 ug/dL Critically low 50.0-170.0 [facility] Comment on above: Performed By: #### F ETIBC, FERR ####[facility] Y[address]hsageaes[address] [place] [address]Dr. Melissa Helm TIBC DIRECT 483.0 ug/dL Critically high 250.0-450. 0 [facility] Comment on above: Performed By: #### F ETIBC, FERR ####[facility] [address]csmpnl[address] [place] [address]Dr. Melissa Helm LIPID PROFILEon 04-16-2022 CHOL-HDL RATIO NORM SEE BELOW Normal [facility] Comment on above: Result Comment: 3.3 - 4.4 LOW RISK 4.4 - 7.1 AVERAGE RISK 7.1 - 11.0 MODERATE RISK >11.0 HIGH RISK Performed By: #### C MP, FT3, LIPID, TSH ####[facility] [address] [place], [place] [address]Dr. Melissa Helm Cholesterol [Mass/Vol] 131 mg/dL Normal <=[address] [facility] Comment on above: Performed By: #### C MP, FT3, LIPID, TSH ####[facility] [address] [place] [id number]. Melissa Helm Cholesterol in HDL [Mass/Vol] 51 mg/dL Normal 40-60 [facility] Comment on above: Performed By: #### C MP, FT3, LIPID, TSH ####[facility] [address]sprzsaio[address] [place] [phone]. Melissa Helm Cholesterol in LDL [Mass/Vol] 54.0 mg/dL Normal [facility] Comment on above: Performed By: #### C MP, FT3, LIPID, TSH ####[facility] Jkmpkxjccf[address] [place] [address]Dr. Melissa Helm Cholesterol.total/Chol esterol in HDL [Mass ratio] 2.6 {ratio} Normal [facility] Comment on above: Performed By: #### C MP, FT3, LIPID, TSH ####[facility] [address]rfar[address] [place] [id number]. Melissa Helm HDL NORMAL > or = 60 mg/dl - LO W CARDIOVASCULAR RISK <40 mg/dl - HIGH CARDIOVASCULAR RISK Normal [facility] Comment on above: Performed By: #### C MP, FT3, LIPID, TSH ####[facility] [address]ff[address] [place] [address]Dr. Melissa Helm LDL CALC NORMAL SEE BELOW Normal [facility] Comment on above: Result Comment: <100 mg/dl OPTIMAL 100 - 129 mg/dl NEAR OR ABOVE OPTIMAL 130 - 159 mg/dl BORDERLINE HIGH 160 - 189 mg/dl HIGH >190 mg/dl VERY HIGH Performed By: #### C MP, FT3, LIPID, TSH ####[facility] [address] [place] [address]Dr. Melissa Helm Triglyceride [Mass/Vol] 130 mg/dL Normal <=150 [facility] Comment on above: Performed By: #### C MP, FT3, LIPID, TSH ####[facility] [address]ys[address] [place] [address]Dr. Melissa Helm VLDL CALC 26.0 mg/dL Normal [facility] Comment on above: Performed By: #### C MP, FT3, LIPID, TSH ####[facility] [address]ijdor[address] [place] [address]Dr. Melissa Helm PROF 14(COMP METB)on 022 Albumin [Mass/Vol] 4.0 g/dL Normal 3.4-5.0 [facility] Comment on above: Performed By: #### C MP, FT3, LIPID, TSH ####[facility] Venbarevnl[address] [place] [address]Dr. Melissa Helm Albumin/Globulin [Mass ratio] 0.9 {ratio} Normal [facility] Comment on above: Performed By: #### C MP, FT3, LIPID, TSH ####[facility] Rixnxcfsmf[address] [place] [address]Dr. Melissa Helm ALP [Catalytic activity/Vol] 263 U/L Critically high 46-116 [facility] Comment on above: Performed By: #### C MP, FT3, LIPID, TSH ####[facility] Udc[address]wuzlx[address] [place] [address]Dr. Melissa Helm ALT [Catalytic activity/Vol] 9 U/L Critically low 14-59 [facility] Comment on above: Performed By: #### C MP, FT3, LIPID, TSH ####[facility] Ofkgnpilbw[address] [place] [address]Dr. Melissa Helm Anion gap [Moles/Vol] 14.7 mmol/L Normal [facility] Comment on above: Performed By: #### C MP, FT3, LIPID, TSH ####[facility] Yffxripafo[address] [place] [address]Dr. Melissa Helm AST [Catalytic activity/Vol] 15 U/L Normal 15-37 [facility] Comment on above: Performed By: #### C MP, FT3, LIPID, TSH ####[facility] Qshhnwmqet[address] [place] [address]Dr. Melissa Helm Bilirubin [Mass/Vol] 0.4 mg/dL Normal 0.2-1.0 [facility] Comment on above: Performed By: #### C MP, FT3, LIPID, TSH ####[facility] Zedxrbmkic[address] [place] [address]Dr. Melissa Helm Calcium [Mass/Vol] 9.1 mg/dL Normal 8.5-10.1 [facility] Comment on above: Performed By: #### C MP, FT3, LIPID, TSH ####[facility] [address]qujeib[address] [place] [address]Dr. Melissa Helm Chloride [Moles/Vol] 98 mmol/L Normal 98-107 [facility] Comment on above: Performed By: #### C MP, FT3, LIPID, TSH ####[facility] Vpdeuqfeey[address] [place] [address]Dr. Melissa Helm CO2 [Moles/Vol] 27.5 mmol/L Normal 21.0-32.0 [facility] Comment on above: Performed By: #### C MP, FT3, LIPID, TSH ####[facility] [address] [place], [place] [address]Dr. Melissa Helm Creatinine [Mass/Vol] 1.08 mg/dL Critically high 0.55-1.02 [facility] Comment on above: Performed By: #### C MP, FT3, LIPID, TSH ####[facility] F[address]zzthlgz[address] [place] [address]Dr. Melissa Helm EGFR-AF YEMENI >60 Normal >=60 [facility] Comment on above: Performed By: #### C MP, FT3, LIPID, TSH ####[facility] Eoxcipjdem[address] [place] [address]Dr. Melissa Helm EGFR-NON AF YEMENI 53 mL/min/1.73m2 Critically low >=60 [facility] Comment on above: Performed By: #### C MP, FT3, LIPID, TSH ####[facility] P[address]xrvdafb[address] [place] [address]Dr. Melissa Helm Globulin (S) [Mass/Vol] 4.3 g/dL Normal [facility] Comment on above: Performed By: #### C MP, FT3, LIPID, TSH ####[facility] Qcitydlasn[address] [place] [address]Dr. Melissa Helm Glucose [Mass/Vol] 80 mg/dL Normal 74-106 [facility] Comment on above: Performed By: #### C MP, FT3, LIPID, TSH ####[facility] Tuz[address]ajvhc[address] [place] [address]Dr. Melissa Helm Potassium [Moles/Vol] 3.2 mmol/L Critically low 3.5-5.1 [facility] Comment on above: Performed By: #### C MP, FT3, LIPID, TSH ####[facility] Ydjehwyugx[address] [place] [address]Dr. Melissa Helm Protein [Mass/Vol] 8.3 g/dL Critically high 6.4-8.2 [facility] Comment on above: Performed By: #### C MP, FT3, LIPID, TSH ####[facility] [address]cdyhsh[address] [place] [address]Dr. Melissa Helm Sodium [Moles/Vol] 137 mmol/L Normal 136-145 [facility] Comment on above: Performed By: #### C MP, FT3, LIPID, TSH ####[facility] Qfqyvjsaxb4216 [place] [address]Dr. Melissa Helm Urea nitrogen [Mass/Vol] 22.0 mg/dL Critically high 7.0-18.0 [facility] Comment on above: Performed By: #### C MP, FT3, LIPID, TSH ####[facility] Mvaabbmies[address] [place] [address]Dr. Melissa Helm Urea nitrogen/Creatinine [Mass ratio] 20.4 mg/mg Normal [facility] Comment on above: Performed By: #### C MP, FT3, LIPID, TSH ####[facility] Ynvcutxews[address] [place] [address]Dr. Melissa Helm TSHon 04-16-2022 TSH 30.570 uIU/mL Critically high 0.358-3.74 0 [facility] Comment on above: Performed By: #### C MP, FT3, LIPID, TSH ####[facility] [address]es[address]by[address] [place] [address]DrTarun Helm ICD REMOTE CHECKon 2 AV Delay Adaptive Paced Minimum (ms) 350 ms [facility] AV Delay Adaptive Rate Maximum (bpm) 90 {beats}/min [facility] AV Delay Adaptive Rate Minimum (bpm) 75 {beats}/min [facility] AV Delay Adaptive Sensed Minimum (ms) 250 ms [facility] AV Delay Adaptive Status ENABLED [facility] AV Delay Paced (ms) 100 ms [facility] AV Delay Sensed (ms) 70 ms [facility] Battery Voltage 2.87 V [facility] Scott LV Pacing Polarity BI [facility] Scott RA Pacing Amplitude (volts) 2 V [facility] Scott RA Pacing Polarity BI [facility] Scott RA Pacing Pulse Width (ms) 0.4 ms [facility] Scott RA Sensing Amplitude (mvolts) 0.3 mV [facility] Scott RA Sensing Blanking Period (ms) 150 ms [facility] Scott RA Sensing Polarity BI [facility] Scott RA Sensing Refractory Period (ms) 250 ms [facility] Scott RV Pacing Amplitude (volts) 3 V [facility] Scott RV Pacing Polarity BI [facility] Scott RV Pacing Pulse Width (ms) 0.4 ms [facility] Scott RV Sensing Amplitude (mvolts) 0.3 mV [facility] Scott RV Sensing Blanking Period (ms) 200 ms [facility] Scott RV Sensing Polarity BI [facility] Detection Configuration (Vent) 2 - Zone [facility] FastVT_Detection Interval 450 ms [facility] FastVT_Therapy Configuration 2 ATP(s) + 0 Shock(s) [facility] ICD AFIB DetectionStatus DISABLED [facility] ICD ATAF DetectionInterval ms 450 ms [facility] ICD ATAF DetectionStatus ENABLED [facility] ICD ATAF TherapyConfiguration 2 ATP(s) + 0 Shock(s) [facility] ICD FastVT DetectionStatus ENABLED [facility] ICD-ADLRATE_BPM 85 {beats}/min [facility] ICD-AMS EPISODES 133 {beats}/min [facility] ICD-ATP Episodes (Vent) 0 [facility] ICD-ATRIALFIBRILLATION 339 Cl [facility] ICD-ATRIALTACHYCARDIA 339 [facility] ICD-ATRIALTACHYCARDIA 5 [facility] ICD-ATRIALTACHYCARDIA 7 [facility] ICD-Counters Cleared Date 09/23/2016 [facility] ICD-Device Mfg MDT [facility] ICD-Fast Ventricular Tachycardia 7 [facility] ICD-LEADIMPEDANCEATRIA L 342 ohm [facility] ICD-Percent Pacing (Atrial) 58.38 % [facility] ICD-Percent Pacing (Vent) 88.05 % [facility] ICD-PMT Intervention ENABLED [facility] ICD-PVC Intervention ENABLED [facility] ICD-Rate Modulation Acceleration Reaction 30 s [facility] ICD-Rate Modulation Deceleration Exercise [facility] ICD-Rate Modulation [place] 3 [facility] ICD-Rate Modulation Threshold MediumHigh [facility] ICD-Shocks Aborted (Vent) 0 [facility] [id number] 0 [facility] ICD-SHOCKSABORTED 0 [facility] ICD-SHOCKSDELIVEREDVEN TRICULAR 0 [facility] ICD-Ventricular Fibrillation 0 [facility] Implant Date 07/03/2005 [facility] Implant Date 11/30/2002 [facility] Lead Impedance (LV) 4047 ohm [facility] Lead Impedance (RV) 703 ohm [facility] Lead Impedance High Voltage 57 ohm [facility] Lead1 Mfg MDT [facility] Lead2 Mfg MDT [facility] Lead3 Mfg GDT [facility] Location LV [facility] Location RA [facility] Location RV [facility] Lower Rate (bpm) 80 {beats}/min [facility] LV PACING % 0 % [facility] Max Sensor Rate (bpm) 90 {beats}/min [facility] MDT_PROG_TACHY_ZONE_DE TECTIONS_STATUS ENABLED [facility] Model [id number] Viva XT SENIOR CLINICAL RESEARCH ASSOCIATE-D [facility] Model 4196 Attain Ability MRI [facility] [facility] Model 5076 [employer] [facility] Model 0144 [employer]ak End[employer] Rx [facility] Pacing Mode DDDR [facility] Serial Number [id number] [facility] Serial Number [id number] [facility] Serial Number [id number] [facility] Serial Number [id number] [facility] Test Charge Energy 18 J [facility] Test Charge Time 4.[address] [facility] Therapy Status (Vent) Enabled [facility] Thresh RA Capture Amplitude (volts) 0.625 V [facility] Thresh RA Capture Duration (ms) 0.4 ms [facility] Thresh RA Sensing Amplitude (mvolts) 2 mV [facility] Thresh RV Capture Amplitude (VOLTS) 1.5 V [facility] Thresh RV Capture Duration (MS) 0.4 ms [facility] Thresh RV Sensing Amplitude (MVOLTS) 11.625 mV [facility] Tracking Rate (bpm) 90 {beats}/min [facility] VF Zone Detection Interval 450 ms [facility] VF Zone Therapy Configuration 2 ATP(s) + 0 Shock(s) [facility] No Panel Informationon 04-12 BLANK _ [facility] ICD-ATRIALTACHYCARDIA 0 [facility] ICD-Fast Ventricular Tachycardia 0 [facility] Implant Date 09/23/2016 [facility] COAGULATION SCREENon aPTT Coag (Bld) [Time] 29 s Normal 26 - 39 [facility] Comment on above: Result Comment: THE APTT IS NO LONGER USED FOR MONITORING UNFRACTIONATED HEPARIN THERAPY. FOR MONITORING HEPARIN THERAPY, USE THE HEPARIN ASSAY. Performed By: #### C OAGS #### [address] [phone] PT Coag (PPP) [Time] 16.1 s High 9.8 - 13.4 [facility] Comment on above: Performed By: #### C OAGS #### [address] [id number] PT, INR 1.4 High 0.9 - 1.1 [facility] Comment on above: Performed By: #### C OAGS #### [address] [id number] Discharge [id number] Discharge Profile2 Discharge Orders: DNAR: Code Status at Discharge: Full Code Appointments: Follow-Up Appointment 02: Physician/Dept/ServiceDrTarun Nunez Reason for ReferralFollow-up Scheduled Date/Velh67-Xep-2072 13:20 [facility] Office Phone [phone] Electronic Signatures: Axel Rangel (COOR) (Signed 21-Jan-2022 09:13) Authored: Discharge Orders, Appointments, Gold Form - Assurance Senior Manager Summary Last Updated: 21-Jan-2022 09:13 by Axel Rangel (COOR) Normal [facility] Laboratory - Coagulationon 0 01-21-2022 aPTT Coag (PPP) [Time] 29 s 26 - 39 [facility] [address] [place] Work Phone: Comment on above: THE APTT IS NO LONGE R USED FOR MONITORING UNFRACTIONATED HEPARIN THERAPY. FOR MONITORING HEPARIN THERAPY, USE THE HEPARIN ASSAY. INR Coag (PPP) [Relative time] 1.4 {INR} above high threshold 0.9 - 1.1 [facility] [address] [place] Work Phone: PT Coag (PPP) [Time] 16.1 s above high threshold 9.8 - 13.4 [facility] [address] [place] Work Phone: No Panel Informationon 01-21 [email or web address] ?[email or web address]&Date =21-01-2022&Time=17%3a39% 3a41%3a00&TestType=ECG&Si te=11&OutputType=PDF&Ext= PDF [facility] [address] [place] Work Phone: Ventricular-paced rhythm [facility] [address] [place] Work Phone: Abnormal [facility] [address] [place] Work Phone: [phone] [facility] [address] [place] Work Phone: [phone] [facility] [address] [place] Work Phone: [phone] [facility] [address] [place] Work Phone: [phone] 1 [facility] [address] [place] Work Phone: [phone] 1 [facility] [address] [place] Work Phone: -[phone] 1 [facility] [address] [place] Work Phone: [phone] 1 [facility] [address] [place] Work Phone: [phone] 1 [facility] [address] [place] Work Phone: [phone] 1 [facility] [address] [place] Work Phone: [phone] 1 [facility] [address] [place] Work Phone: [phone] 1 [facility] [address] [place] Work Phone: [phone] [email or web address] ?[email or web address]&Date =21-01-2022&Time=09%3a40% 3a37%3a00&TestType=ECG&Si te=11&OutputType=PDF&Ext= PDF [facility] [address] [place] Work Phone: [phone] Atrial-paced rhythm [facility] [address] [place] Work Phone: [phone] Abnormal [facility] [address] [place] Work Phone: [phone] 1 [facility] [address] [place] Work Phone: [phone] 1 [facility] [address] [place] Work Phone: [phone] 1 [facility] [address] [place] Work Phone: [phone] 1 [facility] [address] [place] Work Phone: [phone] 1 [facility] [address] [place] Work Phone: [phone] 1 [facility] [address] [place] Work Phone: [phone] 1 [facility] [address] [place] Work Phone: [phone] 1 [facility] [address] [place] Work Phone: [phone] [facility] [address] [place] Work Phone: [phone] [facility] [address] [place] Work Phone: [phone] [facility] [address] [place] Work Phone: [phone] 1 [facility] [address] [place] Work Phone: [phone] 1 [facility] [address] [place] Work Phone: [phone] 1 [facility] [address] [place] Work Phone: Order Reconciliationon 01-21 Order Reconciliation Page 1 Admission Reconciliation Document Reconciliation Type: Observation requested on behalf of Yessi Miller (Advanced Practice Nurse) done by Yessi Miller ([facility] [employer]) Observation - Reconciliation: 21-Jan-2022 16:52 by: Yessi Miller (SHOE STITCHER-[employer]) Home MedicationsEnteredLast Dose TakenReconciled with current Order Reconciliation Comment/ Additional Information amiodarone 400 mg oral tablet 1 tab(s) orally once a rtk50-Xzz-606421-Jan-2022 AM Amiodarone Tablet (CORDARONE; PACERONE)DOSE = 400 [...] oral tablet 1 tab(s) orally once a xwz49-Xjr-387121-Jan-2022 PM Atorvastatin Tablet (LIPITOR)DOSE = 80 mg Oral Daily atorvastatin 80 mg oral tablet continued as the inpatient order Atorvastatin zoggvewdyb-yfis-abgaqzux 50-300-40mg 1 cap(s) orally 2 times a gxn25-Vko-852821-Jan-2022 Reviewed and Held escitalopram 20 mg oral tablet 1 tab(s) orally once a xsj43-Gfe-799721-Jan-2022 AM Escitalopram Tablet (LEXAPRO)DOSE = 20 mg Oral Daily escitalopram 20 mg oral tablet continued as the inpatient order Escitalopram KlonoPIN Wafer 0.5 mg oral tablet, disintegrating 1 tab(s) orally 3 times daily 418008-Zro-4901 PM clonazePAM (KLONOPIN) TabletDOSE = 0.5 mg Oral Every 8 HoursKlonoPIN Wafer 0.5 mg oral tablet, disintegrating continued as the inpatient order clonazePAM (KLONOPIN) Mag-Ox 400 oral tablet 1 tab(s) orally 2 times a bgz49-Ijg-923810-Oym-2264 AM Magnesium Oxide Tablet (Mag-Ox)DOSE = 400 mg Oral DailyMag-Ox 400 oral tablet continued as the inpatient order Magnesium Oxide Metoprolol Succinate ER 100 mg oral tablet, extended release 1 tab(s) orally once a mqy86-Ctm-813632-Mvv-0950 PM Metoprolol Succinate Extended Release Tablet, Extended Release (TOPROL-XL)DOSE = 100 mg Oral DailyMetoprolol Succinate ER 100 mg oral tablet, extended release continued as the inpatient order Metoprolol Succinate Extended Release Multiple Vitamins oral tablet, dispersible 1 tab(s) orally once a day 867532-Syd-0168 Reviewed and Held Nitrostat 0.4 mg sublingual tablet 1 tab(s) sublingual every 5 minutes, As Jtiybr19-Kir-6745ELPKPVQ UNKNOWN Nitroglycerin SubLingual Tablet (NITROSTAT)DOSE = 0.4 mg SubLingual Every 5 Minutes, PRN AnginaNitrostat 0.4 mg sublingual tablet continued as the inpatient order Nitroglycerin SubLingual omeprazole 40 mg oral delayed release capsule 1 cap(s) orally once a day 612604-Led-8061 AM Pantoprazole Enteric Coated Tablet (PROTONIX)DOSE = 40 mg Oral DailyNotes from Pharmacy: Substitution for Omeprazole 40 mg Oral Capsule Dailyomeprazole 40 mg oral delayed release capsule continued as the inpatient order Pantoprazole Potassium Chloride (Ftp-Hgff-Tsd M20) 20 mEq oral tablet, extended release 1 tab(s) orally once a rjo60-Kuu-486874-Qvd-8989 AM Potassium Chloride Extended Release Tablet, Extended ReleaseDOSE = 20 mEq Oral DailyPotassium Chloride (Vqu-Evor-Gwk M20) 20 mEq oral tablet, extended release continued as the inpatient order Potassium Chloride Extended Release rOPINIRole 0.25 mg oral tablet 3 tab(s) orally once a day (at bedtime) 431805-Wlk-1983 PM rOPINIRole (REQUIP) TabletDOSE = 0.75 mg Oral At BedtimerOPINIRole 0.25 mg oral tablet continued as the inpatient order rOPINIRole (REQUIP) torsemide 20 mg oral tablet 1 tab(s) orally once a kwh25-Ngi-893696-Ofs-2565 AM Torsemide Tablet (DEMADEX)DOSE = 20 mg Oral Dailytorsemide 20 mg oral tablet continued as the inpatient order Torsemide traZODone 50 mg oral tablet 1 tab(s) orally once a day (at bedtime), As Needed [id number]-Feu-3330 PM traZODone Tablet (DESYREL)DOSE = 50 mg Oral At Bedtime, PRN InsomniatraZODone 50 mg oral tablet continued as the inpatient order traZODone warfarin 5 mg oral tablet 1 tab(s) orally once a day. Resume 01/22/2022. [id number]-1682 8:00 AM Reviewed and Held Additional Current [...] mL Run at: 10 mL/hr IntraVenous Normal [facility] Order Reconciliation Page 1 Discharge Reconciliation Document Reconciliation Type: Discharge requested on behalf of Yessi Miller (Advanced Practice Nurse) done by Yessi Miller ([employer]) Discharge - Reconciliation: 21-Jan-2022 16:48 by: Yessi Miller (SH[employer]ER[employer]) Home Medications EnteredHOME MEDICATIONS AT DISCHARGE DateReconciliation [...] continued as atorvastatin 80 mg oral tablet uviubkaecl-wlxs-bqffvpmb 50-300-40mg 1 cap(s) orally 2 times a day 30-Dec-2021 10:27 vzbbwfzzmn-lwlt-uuwyvhrh 50-300-40mg 1 cap(s) orally 2 times a day 30-Dec-2021 10:27 ialgzlwyva-igab-mfvdufnh 50-300-40mg is continued as jxzguqkohf-tqbw-bovibrbb 50-300-40mg escitalopram 20 mg oral tablet 1 [...] mg oral delayed release capsule Potassium Chloride (Wbi-Tyvf-Qje M20) 20 mEq oral tablet, extended release 1 tab(s) orally once a day 30-Dec-2021 10:33 Potassium Chloride (Pit-Ltsz-Izl M20) 20 mEq oral tablet, extended release 1 tab(s) orally once a day 30-Dec-2021 10:33 Potassium Chloride (Jeh-Jtbv-Lhs M20) 20 mEq oral tablet, extended release is continued as Potassium Chloride (Okq-Oqlq-Hcq M20) 20 mEq oral tablet, extended release [...] and modifie (more content not included)... Normal [facility] Patient Profile - Preop v3on 01-21-2022 Patient Profile - Preop v3 Patient Profile - Preop: Initial Info: Patient DemographicsName: ESSENCE VINCENT Date: 1970 Address: [address] [place] [address] Date/Time Qfjrkj33-Lle-6424 Primary Phone [phone] How to be AddressedSherry Spoken Language PreferredEnglish Source of Informationpatient Stated Reason for AdmissionTEE/EP study and ablation Primary Contact Name and NumberDepeggy Singer (significant other) [phone] Limitations on Visitors/Phone Callsnone Medications Brought to Hospital[facility] General Health: Weight in kg76.6 kilogram(s) Weight in ebx709.8 pound(s) Weight Methodactual (measured) Scale Typestanding Height [...] valvular disease; dyslipidemia Cardiovascular Management Strategiesroutine screening; center medical specialist; medication therapy Barriers to Managing Healthnone Relationship/Environ: Lives Withalone Living Arrangementsapartment Resource/Environmental Concernsnone Anticipated Transition [place] [facility] Anticipated at Transitionnone Tobacco Use: Tobacco Useno Pre-op Checklist: Arrival Uyeb04-Xly-4543 Arrival Time09:21 Procedure TypeTEE/EPS/Ablation NPOyes Last Food Ymiodw58-Tla-1334 23:00 Last Clear Fluid Ygndzh29-Dof-5124 07:00 ID Band On Patientpatient ID (name), [...] Updated: 21-Jan-2022 11:18 by Nannette Alvarez (ELZA) [facility] Transesophageal Echoon 01-21 Transesophageal Echo [place] [address] TRANSESOPHAGEAL ECHOCARDIOGRAM REPORT Patient Name: ESSENCE Gamez Mary Physician: [id number] [facility] Study [facility]: 01/21/2022 Referring [id number] SOCO LEONORA Physician: MRN/PID: [id number] PCP: Accession/Order#: [id number] Department 2S CathLab Location: Date of : 1970 Fellow: Gender: F Nurse: Yolanda Farrell RN Admit Date: 01/21/2022 Online Affiliate Marketing Manager: Trina Obregon [facility] Admission Status: Outpatient Additional Staff: Height: 157.00 cm CC Report to: Weight: 76.00 kg Study Type: Transesophageal Echo BSA: 1.77 m2 Blood Pressure: 128 /63 mmHg Diagnosis/ICD: Z01.810-Encounter for preprocedural cardiovascular examination Indication: PRE-EP Procedure/CPT: JOVITA Complete-83169; Moderate Sedation Services initial 15 minutes patient >5 years-72069 Study Detail: The following Echo studies were [...] RV Syst Pressure: 40.5 mmHg (< 30mmHg) [id number] Sooc Bhardwaj MD Electronically signed on 01/21/2022 at 2:53:25 PM Final Normal [facility] Transesophageal Echo MP-N [facility] [address] [place] Work Phone: ICD REMOTE CHECKon 2 AV Delay Adaptive Paced Minimum (ms) 350 ms [facility] AV Delay Adaptive Rate Maximum (bpm) 90 {beats}/min [facility] AV Delay Adaptive Rate Minimum (bpm) 75 {beats}/min [facility] AV Delay Adaptive Sensed Minimum (ms) 250 ms [facility] AV Delay Adaptive Status ENABLED [facility] AV Delay Paced (ms) 100 ms [facility] AV Delay Sensed (ms) 70 ms [facility] Battery Voltage 2.9 V [facility] Scott LV Pacing Polarity BI [facility] Scott RA Pacing Amplitude (volts) 2 V [facility] Scott RA Pacing Polarity BI [facility] Scott RA Pacing Pulse Width (ms) 0.4 ms [facility] Scott RA Sensing Amplitude (mvolts) 0.3 mV [facility] Scott RA Sensing Blanking Period (ms) 150 ms [facility] Soctt RA Sensing Polarity BI [facility] Scott RA Sensing Refractory Period (ms) 250 ms [facility] Scott RV Pacing Amplitude (volts) 3 V [facility] Scott RV Pacing Polarity BI [facility] Scott RV Pacing Pulse Width (ms) 0.4 ms [facility] Scott RV Sensing Amplitude (mvolts) 0.3 mV [facility] Scott RV Sensing Blanking Period (ms) 200 ms [facility] Scott RV Sensing Polarity BI [facility] Detection Configuration (Vent) 2 - Zone [facility] FastVT_Detection Interval 450 ms [facility] FastVT_Therapy Configuration 2 ATP(s) + 0 Shock(s) [facility] ICD ATAF DetectionInterval ms 450 ms [facility] ICD ATAF DetectionStatus ENABLED [facility] ICD ATAF TherapyConfiguration 2 ATP(s) + 0 Shock(s) [facility] ICD FastVT DetectionStatus ENABLED [facility] ICD-ADLRATE_BPM 85 {beats}/min [facility] ICD-AMS EPISODES 133 {beats}/min [facility] ICD-ATP Episodes (Vent) 0 [facility] ICD-ATRIALFIBRILLATION 2063 Cl [facility] ICD-ATRIALTACHYCARDIA 2063 [facility] ICD-ATRIALTACHYCARDIA 17 [facility] ICD-Counters Cleared Date 09/23/2016 [facility] ICD-Device Mfg T [facility] ICD-LEADIMPEDANCEATRIA L 304 ohm [facility] ICD-Percent Pacing (Atrial) 24.69 % [facility] ICD-Percent Pacing (Vent) 20.79 % [facility] ICD-PMT Intervention ENABLED [facility] ICD-PVC Intervention ENABLED [facility] ICD-Rate Modulation Acceleration Reaction 30 s [facility] ICD-Rate Modulation Deceleration Exercise [facility] ICD-Rate Modulation [place] 3 [facility] ICD-Rate Modulation Threshold MediumHigh [facility] ICD-Shocks Aborted (Vent) 0 [facility] PXV-BSAJKS-ICPXZFPLW 0 [facility] ICD-SHOCKSABORTED 0 [facility] ICD-SHOCKSDELIVEREDVEN TRICULAR 0 [facility] ICD-Ventricular Fibrillation 0 [facility] Implant Date 07/03/2005 [facility] Implant Date 11/30/2002 [facility] Lead Impedance (LV) 4047 ohm [facility] Lead Impedance (RV) 836 ohm [facility] Lead Impedance High Voltage 54 ohm [facility] Lead1 Mfg MDT [facility] Lead2 Mfg MDT [facility] Lead3 Mfg GDT [facility] Location LV [facility] Location RA [facility] Location RV [facility] Lower Rate (bpm) 60 {beats}/min [facility] LV PACING % 0 % [facility] Max Sensor Rate (bpm) 90 {beats}/min [facility] MDT_PROG_TACHY_ZONE_DE TECTIONS_STATUS ENABLED [facility] Model [id number] Viva XT SENIOR CLINICAL RESEARCH ASSOCIATE-D [facility] Model 4196 Attain Ability MRI SureScan [facility] Model 5076 [employer] [facility] Model 0144 [employer] End[employer] Rx [facility] Pacing Mode DDDR [facility] Serial Number [id number] [facility] Serial Number [id number] [facility] Serial Number [id number] [facility] Serial Number [id number] [facility] Test Charge Energy 18 J [facility] Test Charge Time 4.[address] [facility] Therapy Status (Vent) Enabled [facility] Thresh RA Capture Amplitude (volts) 0.625 V [facility] Thresh RA Capture Duration (ms) 0.4 ms [facility] Thresh RA Sensing Amplitude (mvolts) 2 mV [facility] Thresh RV Capture Amplitude (VOLTS) 1.375 V [facility] Thresh RV Capture Duration (MS) 0.4 ms [facility] Thresh RV Sensing Amplitude (MVOLTS) 10.125 mV [facility] Tracking Rate (bpm) 90 {beats}/min [facility] VF Zone Detection Interval 450 ms [facility] VF Zone Therapy Configuration 2 ATP(s) + 0 Shock(s) [facility] No Panel Informationon 01-14 BLANK _ [facility] ICD-ATRIALTACHYCARDIA 0 [facility] ICD-Fast Ventricular Tachycardia 0 [facility] Implant Date 09/23/2016 [facility] Prothrombin Time INRon 12-23 INR Coag (PPP) [Relative time] 3.3 {INR} [employer] Other Prothrombin Time INR [place] [employer] Other Prothrombin Time INRon 12-09 INR Coag (PPP) [Relative time] 1.2 {INR} [employer] Other Prothrombin Time INR [place] [employer] Other Office Visit (Cardiology)on 12-05-2021 Follow-up visit [...] Lab Procedures; Status:Active - Retrospective Authorization; Requested for:[id number]; Atrial flutter, unspecified type, Pre-operative cardiovascular examination Complete Blood Count + Differential; Status:Active - Retrospective Authorization; Requested for:[id number]; Complete Blood Count; Status:Active - Retrospective Authorization; Requested for:05Dec2021; CORONAVIRUS 2019 RNA BY PCR, SCREEN ASYMPTOMATIC AMBULATORY; Status:Hold For - Specimen/Data Collection,Retrospective Authorization; Requested for:05Dec2021; ? : Unknown RESIDENT IN CONGREGATE CARE [...] alcoholic beverages.; Status:Complete - Retrospective Authorization; Done: 05Dec2021 Avoid foods and beverages that contain caffeine.; Status:Complete - Retrospective Authorization; Done: 05Dec2021 Begin or continue regular aerobic exercise. Gradually work up to at least 3 sessions of 30 minutes of exercise a week.; Status:Complete - Retrospective Authorization; Done: 05Dec2021 Diets that are low in carbohydrates and high in protein are very popular for weight loss.; Status:Complete - Retrospective Authorization; Done: 05Dec2021 Eat a low fat and low cholesterol diet.; Status:Complete - Retrospective Authorization; Done: 05Dec2021 Losing just 5 to 10 pounds may lower your risk of health problems.; Status:Complete - Retrospective Authorization; Done: 05Dec2021 Please bring all medicines, vitamins, and herbal supplements with you when you come to the office.; Status:Complete - Retrospective Authorization; Done: 05Dec2021 Restrict the salt in your diet by [...] ABLA. By signing my name below, ILatesha CMA,Scribe, attest that this documentation has been prepared under the direction and in the presence of Dr. Margareth Nunez MD, FACC, FACP, FHRS. The provider reviewed the following test(s) and result(s) with the patient: ECG Chief Complaint New patient referred by Dr. Hoskins for possible ablation. Seen at [facility] 11/04/2021 Adult Risk Screening Initial Fall Risk Screening: ESSENCE has not fallen in the last 6 months. Tobacco Screening: ESSENCE does not use tobacco. Blood Pressure monitoring Blood Pressure Controlled, Systolic <130 mm Hg Blood Pressure Controlled, Diastolic < 80mm Hg History of Present Illness She is referred by Dr. Hoskins for evaluation for ablation of atrial flutter. She has remote history of RI , cardiogenic shock, PCI circumflex and iABP, with persistent severe LV dysfunction. She later occluded her cicumflex. Years later, she had HF and severe MR and underwent mitral valve repair at [facility]. She had recurrent VT and atrial arrhythmias, and underwent several ablations and repeat percutaneous MVR at [facility]. After her MVR and ablation in [...] syncope, palpitat (more content not included)... Normal [facility] Tobacco Screening.on 022 Fall risk assessment a) No falls within the last year [facility] [employer] DO Work Phone: Tobacco use status CP b) No [facility] [employer] DO Work Phone: Tobacco Screening. Yes [facility] [employer] DO Work Phone: Prothrombin Time INRon 11-19 INR Coag (PPP) [Relative time] 1.59 {INR} [facility] [employer] Other Prothrombin Time INR [facility] [employer] Other Prothrombin Time INRon 11-11 INR Coag (PPP) [Relative time] 2.2 {INR} [employer] Other Prothrombin Time [facility] [employer] Other Prothrombin Time INRon 11-04 INR Coag (PPP) [Relative time] 1.1 {INR} [employer] Other Prothrombin Time INR [facility] [employer] Other Prothrombin Time INRon 10-29 INR Coag (PPP) [Relative time] 1.22 {INR} [employer] Other Prothrombin Time INR [facility] [employer] Other Prothrombin Time INRon 10-23 INR Coag (PPP) [Relative time] 1.29 {INR} [employer] Other Prothrombin Time INR [facility] [employer] Other Activated partial thrombopla stin time (aPTT) in platelet poor plasma by coagulation aon 10-13-2021 aPTT Coag (PPP) [Time] 31.8 s 25.1-36.5 Fi [facility] Amphetamine Screen Ql (U)on 10-13-2021 Amphetamines Ql (U) Negative Negative [facility] Automated erythrocytes count in urine sediment (number/area)on 10-13-2021 RBC Auto (Urine sed) [#/Area] 1-2 [HPF] [facility] Automated leukocytes count i n urine sediment (number/area)on 10-13-2021 WBC Auto (Urine sed) [#/Area] 20-49 [HPF] [facility] Automated urine hyaline cast s count (number/volume)on 10-13-2021 Hyaline casts Auto (U) [#/Vol] None seen [LPF] [facility] Barbiturates [Presence] in U rineon 10-13-2021 Barbiturates Ql (U) Negative Negative [facility] Basophils Auto (Bld) [#/Vol] on 10-13-2021 Basophils (Bld) [#/Vol] 0.1 10*3/uL 0.0-0.2 [facility] Basophils/100 WBC Auto (Bld) on 10-13-2021 Basophils/100 WBC (Bld) 0.9 % [facility] Benzodiazepines [Presence] i n Urineon 10-13-2021 Benzodiazepines Ql (U) Negative [facility] Bilirubin Test strip Ql (U)o n 10-13-2021 Bilirubin Ql (U) Negative Negative [facility] Blood anisocytosis detection on 10-13-2021 Anisocytosis Ql (Bld) Marked [facility] Blood hemoglobin measurement (mass/volume)on 10-13-2021 Hemoglobin (Bld) [Mass/Vol] 11.7 g/dL 11.8-15.4 [facility] Blood leukocytes automated c ount (number/volume)on 10-13-2021 WBC (Bld) [#/Vol] 11.4 10*3/uL 4.5-11.0 [facility] Blood polychromasia detectio n by light microscopyon 10-13-2021 Polychromasia LM Ql (Bld) Slight [facility] Body fluid albumin measureme nt (mass/volume)on 10-13-2021 Albumin (Body fld) [Mass/Vol] 3.0 g/dL 3.2-5.5 [facility] COVID-19 SOFIAon 10-13-2021 SARS-CoV+SARS-CoV-2 (COVID-19) Ag IA.rapid Ql (Resp) Negative Negative [facility] Comment on above: This is a duplicate Maranda SARS Antigen (CAIT) result to be used for statistical tracking purpose only. Cannabinoids [Presence] in U rine by Screen methodon 10-13-2021 Cannabinoids Screen Ql (U) Positive Negative [facility] Comment on above: These are unconfirme d results and should not be used for legal purposes. Drug Cut-Off Concentration: AMPH 1000 ng/mL ALESSANDRO 200 ng/mL RHINA 200 ng/mL COCM 300 ng/mL OP 300 ng/mL PCP 25 ng/mL THC 20 ng/mL Casts typing in urine sedime nt by light microscopyon 10-13-2021 Casts LM Nom (Urine sed) None seen [LPF] None Seen [facility] Color Auto (U)on 10-13-2021 Color (U) Yellow Yellow [facility] Creatine kinase [Enzymatic a ctivity/volume] in Serum or Plasmaon 10-13-2021 CK [Catalytic activity/Vol] 61 U/L 22-269 [facility] Creatinine and Glomerular fi ltration rate.predicted panel (S/P/Bld)on 10-13-2021 Creatinine [Mass/Vol] 3.62 mg/dL 0.44-1.03 [place] Digoxin [Mass/volume] in Ser um or Plasmaon 10-13-2021 Digoxin [Mass/Vol] 8.7 ng/mL 0.9-2.0 [facility] Comment on above: Critical valueresult calledat 1837 on 10/13/21Last dose: - Eosinophils Auto (Bld) [#/Vo l]on 10-13-2021 Eosinophils (Bld) [#/Vol] 0.0 10*3/uL 0.0-0.45 [facility] Eosinophils/100 WBC Auto (Bl d)on 10-13-2021 Eosinophils/100 WBC (Bld) 0.0 % [facility] Erythrocyte distribution wid th Auto (RBC) [Ratio]on 10-13-2021 Erythrocyte distribution width (RBC) [Ratio] 23.1 % 11.9-15.3 [facility] Estimated glomerular filtrat ion rate (GFR) non- Americanon 10-13-2021 GFR/1.73 sq M.predicted among non-blacks MDRD (S/P/Bld) [Vol rate/Area] 13 mL/Min [facility] Globulin Calc (S) [Mass/Vol] on 10-13-2021 Globulin (S) [Mass/Vol] 3.2 g/dL [facility] Haptoglobin [Mass/volume] in Serum or Plasmaon 10-13-2021 Haptoglobin [Mass/Vol] 175 mg/dL 37-246 [facility] Hematocrit Auto (Bld) [Volum e fraction]on 10-13-2021 Hematocrit (Bld) [Volume fraction] 38.3 % 34.0-46.4 [facility] Hypochromia detectionon - Hypochromia Ql (Bld) Slight [facility] Ketones Auto test strip (U) [Mass/Vol]on 10-13-2021 Ketones (U) [Mass/Vol] Negative Negative Fi [facility] - Chemistry and C hemistry - challengeon 10-13-2021 Natriuretic peptide B (Bld) [Mass/Vol] 279.0 pg/mL 5-100 [facility] Laboratory - Coagulationon 0 10-13-2021 PT Coag (PPP) [Time] 23.0 s 9.0-12.9 [facility] - Drug toxicology on 10-13-2021 Opiates Ql (U) Negative Negative [facility] Laboratory - Hematology and Cell countson 10-13-2021 Nucleated RBC/100 WBC (Bld) [Ratio] 0.1 % 0-0.5 [facility] Lactate dehydrogenase measur ement (enzymatic activity/volume)on 10-13-2021 LDH (Unsp spec) [Catalytic activity/Vol] 310 U/L 45-190 [facility] Lymphocytes Auto (Bld) [#/Vo l]on 10-13-2021 Lymphocytes (Bld) [#/Vol] 1.1 10*3/uL 1.00-4.8 [facility] Lymphocytes/100 WBC Auto (Bl d)on 10-13-2021 Lymphocytes/100 WBC (Bld) 9.5 % [facility] MCH Auto (RBC) [Entitic mass ]on 10-13-2021 MCH (RBC) [Entitic mass] 20.4 pg 24.7-34.3 [facility] MCHC Auto (RBC) [Mass/Vol]on 10-13-2021 MCHC (RBC) [Mass/Vol] 30.5 g/dL 32.0-35.0 [place] MCV Auto (RBC) [Entitic vol] on 10-13-2021 MCV (RBC) [Entitic vol] 67.0 fL 80-100 [facility] Monocytes Auto (Bld) [#/Vol] on 10-13-2021 Monocytes (Bld) [#/Vol] 0.9 10*3/uL 0.0-0.8 [facility] Monocytes/100 WBC Auto (Bld) on 10-13-2021 Monocytes/100 WBC (Bld) 7.8 % [facility] Neutrophils Auto (Bld) [#/Vo l]on 10-13-2021 Neutrophils (Bld) [#/Vol] 9.3 10*3/uL 1.8-7.7 [facility] Neutrophils/100 WBC Auto (Bl d)on 10-13-2021 Neutrophils/100 WBC (Bld) 81.8 % [facility] Nitrite Test strip Ql (U)on 10-13-2021 Nitrite Ql (U) Negative Negative [facility] No Panel Informationon 10-13 Estimated GFR () 16 mL/Min [facility] Comment on above: GFR estimated refere nce range: According to KDOQI guidelines, <60 ml/min/1.73m2 is sufficient to diagnose a patient with chronic kidney disease. Microcytosis Moderate [facility] Creatinine Clearance (Chem 16.83 [facility] Platelet Estimate Decreased Normal [facility] Platelet Morphology Comment Normal Normal [facility] Schistocytes Slight [facility] Ovalocyte detectionon 2021 Ovalocytes LM Ql (Bld) Slight [facility] Phencyclidine Screen Ql (U)o n 10-13-2021 Phencyclidine Ql (U) Negative Negative [facility] Platelet mean volume Auto (B ld) [Entitic vol]on 10-13-2021 Platelet mean volume (Bld) [Entitic vol] 9.0 fL 6.3-10.7 [facility] Platelet poor plasma interna tional normalized ratio (INR) by coagulation assay (relaton 10-13-2021 INR Coag (PPP) [Relative time] 2.0 {INR} [facility] Comment on above: INR Therapeutic Rang [...] 10-13-2021 Platelets (Bld) [#/Vol] 29 10*3/uL 150-450 [facility] Comment on above: Results calledat 151 0 on 10/13/21 Protein Auto test strip (U) [Mass/Vol]on 10-13-2021 Protein (U) [Mass/Vol] Negative Negative Fi [facility] Protein [Mass/volume] in Ser um or Plasmaon 10-13-2021 Protein [Mass/Vol] 6.2 g/dL 6.1-7.9 [facility] RBC Auto (Bld) [#/Vol]on RBC (Bld) [#/Vol] 5.72 10*6/uL 3.60-5.00 [facility] RBC morphologyon 10-13-2021 RBC morphology finding Nom (Bld) N/A [facility] Serum or plasma alanine hernandez otransferase measurement without P-5'-P (enzymatic activion 10-13-2021 ALT No additional P-5'-P [Catalytic activity/Vol] 12 U/L 10-60 [facility] Serum or plasma albumin/glob ulin mass ratioon 10-13-2021 Albumin/Globulin [Mass ratio] 0.9 {ratio} [facility] Serum or plasma alkaline rosanna sphatase measurement (enzymatic activity/volume)on 10-13-2021 ALP [Catalytic activity/Vol] 147 U/L 32-92 [facility] Serum or plasma aspartate am inotransferase measurement (enzymatic activity/volume)on 10-13-2021 AST [Catalytic activity/Vol] 26 U/L 10-42 [facility] Serum or plasma calcium jackie urement (mass/volume)on 10-13-2021 Calcium [Mass/Vol] 8.2 mg/dL 8.2-10.2 [facility] Serum or plasma chloride jose antonio surement (moles/volume)on 10-13-2021 Chloride [Moles/Vol] 91 mmol/L 95-114 [facility] Serum or plasma creatine kin ase MB (CKMB)/total creatine kinase (CK) ratio by calculaon 10-13-2021 CK.MB Calc [Catalytic fraction] 17.3 % 0.00-2.50 [facility] Serum or plasma creatine kin ase MB measurement (mass/volume)on 10-13-2021 CK.MB [Mass/Vol] 10.6 ng/mL 0.6-6.3 [facility] Serum or plasma glucose jackie urement (mass/volume)on 10-13-2021 Glucose [Mass/Vol] 98 mg/dL 70-100 [facility] Comment on above: ADA recommended refe rence rangeRandom Glucose Reference Range is dependent on time and content of last meal. Glucose of more than 200 mg/dL in a nonstressed, ambulatory subject supports the diagnosis of Diabetes Mellitus. Serum or plasma potassium me asurement (moles/volume)on 10-13-2021 Potassium [Moles/Vol] 3.3 mmol/L 3.5-5.1 [place] Serum or plasma sodium measu rement (moles/volume)on 10-13-2021 Sodium [Moles/Vol] 130 mmol/L 136-146 [facility] Serum or plasma total biliru bin measurement (mass/volume)on 10-13-2021 Bilirubin [Mass/Vol] 0.6 mg/dL 0.3-1.2 [facility] Serum or plasma total carbon dioxide measurement (moles/volume)on 10-13-2021 CO2 [Moles/Vol] 23.0 mmol/L 22.0-30.0 [facility] Serum or plasma urea nitroge n measurement (mass/volume)on 10-13-2021 Urea nitrogen [Mass/Vol] 51 mg/dL 9-23 [facility] Specific gravity Auto test s trip (U) [Rel density]on 10-13-2021 Specific gravity (U) [Rel density] 1.007 1.001-1.03 0 [facility] Squamous epithelial cells de tection in urine sediment by light microscopyon 10-13-2021 Epithelial cells.squamous LM Ql (Urine sed) 10-19 [HPF] [facility] Teardrop cell detectionon Dacrocytes LM Ql (Bld) Slight [facility] Trichomonas vaginalis detect ion in urine sediment by light microscopyon 10-13-2021 T. vaginalis LM Ql (Urine sed) 3-4 [HPF] None Seen [facility] Troponin I.cardiac [Mass/vol ume] in Serum or Plasma by High sensitivity methodon 10-13-2021 Troponin I.cardiac High sensitivity method [Mass/Vol] 139 pg/mL 0-15 [facility] Comment on above: Critical valueresult calledat 1909 on 10/13/21 Urine bacteria detection by automated methodon 10-13-2021 Bacteria Auto Ql (U) None seen None Seen [facility] Urine clarity by refractomet ry automatedon 10-13-2021 Clarity Refractometry automated (U) Cloudy Clear [facility] Urine cocaine detectionon Cocaine Ql (U) Negative Negative [facility] Urine glucose measurement by automated test strip (mass/volume)on 10-13-2021 Glucose Auto test strip (U) [Mass/Vol] Normal mg/dL Normal [facility] Urine hemoglobin detection b y automated test stripon 10-13-2021 Hemoglobin Auto test strip Ql (U) Trace Negative [facility] Urine lactic acid measuremen ton 10-13-2021 Lactate (U) [Moles/Vol] 1.5 mmol/L [facility] Urine leukocyte esterase det ection by automated test stripon 10-13-2021 Leukocyte esterase Auto test strip Ql (U) 3+ Negative [facility] Urobilinogen Auto test strip (U) [Mass/Vol]on 10-13-2021 Urobilinogen (U) [Mass/Vol] Normal mg/dL Normal [facility] pH Auto test strip (U)on pH (U) 5.5 [pH] 5.0-9.0 [facility] Prothrombin Time INRon 09-04 Prothrombin Time INR 1.0 [facility] [employer] Other Prothrombin Time INRon 07-17 INR Coag (PPP) [Relative time] 2.0 {INR} [place] [employer] Other Prothrombin Time INR [employer] Other Prothrombin Time INRon 06-30 INR Coag (PPP) [Relative time] 4.4 {INR} [employer] Other Prothrombin Time INR [facility] [employer] Other Prothrombin Time INRon 06-09 INR Coag (PPP) [Relative time] 4.9 {INR} [employer] Other Prothrombin Time INR [facility] [employer] Other Laboratory - Coagulationon 0 12-23-2020 PT Coag (PPP) [Time] 314.1 s 9.0-12.9 [facility] Comment on above: Results calledat 111 7 on 12/23/20 Platelet poor plasma interna tional normalized ratio (INR) by coagulation assay (relaton 12-23-2020 INR Coag (PPP) [Relative time] 27.1 {INR} [facility] Comment on above: Results calledat 111 [...] 11-25-2020 Basophils (Bld) [#/Vol] 0.1 10*3/uL 0.0-0.2 [facility] Basophils/100 WBC Auto (Bld) on 11-25-2020 Basophils/100 WBC (Bld) 1.7 % [facility] Blood anisocytosis detection on 11-25-2020 Anisocytosis Ql (Bld) Marked [facility] Blood hemoglobin measurement (mass/volume)on 11-25-2020 Hemoglobin (Bld) [Mass/Vol] 8.3 g/dL 11.8-15.4 [facility] Blood leukocytes automated c ount (number/volume)on 11-25-2020 WBC (Bld) [#/Vol] 8.5 10*3/uL 4.5-11.0 [facility] Blood polychromasia detectio n by light microscopyon 11-25-2020 Polychromasia LM Ql (Bld) Moderate [facility] Creatinine and Glomerular fi ltration rate.predicted panel (S/P/Bld)on 11-25-2020 Creatinine [Mass/Vol] 0.79 mg/dL 0.44-1.03 [place] Eosinophils Auto (Bld) [#/Vo l]on 11-25-2020 Eosinophils (Bld) [#/Vol] 0.3 10*3/uL 0.0-0.45 [facility] Eosinophils/100 WBC Auto (Bl d)on 11-25-2020 Eosinophils/100 WBC (Bld) 3.3 % [facility] Erythrocyte distribution wid th Auto (RBC) [Ratio]on 11-25-2020 Erythrocyte distribution width (RBC) [Ratio] 21.0 % 11.9-15.3 [facility] GFR/1.73 sq M.predicted emily g non-blacks MDRD (S/P/Bld) [Vol rate/Area]on 11-25-2020 GFR/1.73 sq M predicted among non-blacks MDRD (S/P/Bld) [Vol rate/Area] > 60 mL/Min [facility] HCG ( test) IA.rapi d Ql (U)on 11-25-2020 HCG ( test) Ql (U) Negative [facility] Hematocrit Auto (Bld) [Volum e fraction]on 11-25-2020 Hematocrit (Bld) [Volume fraction] 26.3 % 34.0-46.4 [facility] Hematologyon 11-25-2020 PT Coag (PPP) [Time] 13.6 s 9.0-12.9 [facility] Platelets (Bld) [#/Vol] Normal Normal [facility] Hypochromia detectionon 10-29 Hypochromia Ql (Bld) Moderate [facility] Lymphocytes Auto (Bld) [#/Vo l]on 11-25-2020 Lymphocytes (Bld) [#/Vol] 1.9 10*3/uL 1.00-4.8 [facility] Lymphocytes/100 WBC Auto (Bl d)on 11-25-2020 Lymphocytes/100 WBC (Bld) 22.6 % [facility] MCH Auto (RBC) [Entitic mass ]on 11-25-2020 MCH (RBC) [Entitic mass] 21.5 pg 24.7-34.3 [facility] MCHC Auto (RBC) [Mass/Vol]on 11-25-2020 MCHC (RBC) [Mass/Vol] 31.5 g/dL 32.0-35.0 [facility] MCV Auto (RBC) [Entitic vol] on 11-25-2020 MCV (RBC) [Entitic vol] 68.2 fL 80-100 [facility] Monocytes Auto (Bld) [#/Vol] on 11-25-2020 Monocytes (Bld) [#/Vol] 0.8 10*3/uL 0.0-0.8 [facility] Monocytes/100 WBC Auto (Bld) on 11-25-2020 Monocytes/100 WBC (Bld) 8.8 % [facility] Neutrophils Auto (Bld) [#/Vo l]on 11-25-2020 Neutrophils (Bld) [#/Vol] 5.4 10*3/uL 1.8-7.7 [facility] Neutrophils/100 WBC Auto (Bl d)on 11-25-2020 Neutrophils/100 WBC (Bld) 63.6 % [facility] No Panel Informationon 11-25 Estimated GFR () > 60 mL/Min [facility] Comment on above: GFR estimated refere nce range: According to KDOQI guidelines, <60 ml/min/1.73m2 is sufficient to diagnose a patient with chronic kidney disease. Platelet Estimate Normal Normal [facility] Otheron 11-25-2020 GFR/1.73 sq M.predicted MDRD (S/P/Bld) [Vol rate/Area] > 60 mL/Min [facility] Comment on above: GFR estimated refere nce range: According to KDOQI guidelines, <60 ml/min/1.73m2 is sufficient to diagnose a patient with chronic kidney disease. Microcytosis Moderate [facility] Nucleated RBC/100 WBC (Bld) [Ratio] 0.2 % 0-0.5 [facility] Creatinine Clearance (Chem 84.61 [facility] Platelet Morphology Comment Normal Normal [facility] Poikilocytosis Slight [facility] Schistocytes Slight [facility] Ovalocyte detectionon 2020 Ovalocytes LM Ql (Bld) Slight [facility] Platelet mean volume Auto (B ld) [Entitic vol]on 11-25-2020 Platelet mean volume (Bld) [Entitic vol] 8.8 fL 6.3-10.7 [facility] Platelet poor plasma interna tional normalized ratio (INR) by coagulation assay (relaton 11-25-2020 INR Coag (PPP) [Relative time] 1.2 {INR} [facility] Comment on above: INR Therapeutic Rang [...] 11-25-2020 Platelets (Bld) [#/Vol] 318 10*3/uL 150-450 [facility] RBC Auto (Bld) [#/Vol]on RBC (Bld) [#/Vol] 3.85 10*6/uL 3.60-5.00 [facility] RBC morphologyon 11-25-2020 RBC morphology finding Nom (Bld) N/A [facility] Serum or plasma calcium jackie urement (mass/volume)on 11-25-2020 Calcium [Mass/Vol] 8.6 mg/dL 8.2-10.2 [facility] Serum or plasma chloride jose antonio surement (moles/volume)on 11-25-2020 Chloride [Moles/Vol] 102 mmol/L 95-114 [facility] Serum or plasma glucose jackie urement (mass/volume)on 11-25-2020 Glucose [Mass/Vol] 87 mg/dL 70-100 [facility] Comment on above: ADA recommended refe rence rangeRandom Glucose Reference Range is dependent on time and content of last meal. Glucose of more than 200 mg/dL in a nonstressed, ambulatory subject supports the diagnosis of Diabetes Mellitus. Serum or plasma potassium me asurement (moles/volume)on 11-25-2020 Potassium [Moles/Vol] 3.9 mmol/L 3.5-5.1 [place] Serum or plasma sodium measu rement (moles/volume)on 11-25-2020 Sodium [Moles/Vol] 135 mmol/L 136-146 [facility] Serum or plasma total carbon dioxide measurement (moles/volume)on 11-25-2020 CO2 [Moles/Vol] 22.7 mmol/L 22.0-30.0 [facility] Serum or plasma urea nitroge n measurement (mass/volume)on 11-25-2020 Urea nitrogen [Mass/Vol] 8 mg/dL 9-23 [facility] Target cellson 11-25-2020 Target cells LM Ql (Bld) Slight [facility] Urine human chorionic gonado tropin (hCG) detection by immunoassayon 11-25-2020 HCG ( test) Ql (U) Negative [facility] Creatine kinase [Enzymatic a ctivity/volume] in Serum or Plasmaon 11-24-2020 CK [Catalytic activity/Vol] 54 U/L 22-269 [facility] Otheron 11-24-2020 CBC Comment See comment [facility] Comment on above: There is significant microcytosis which suggests the possibility of iron deficiency. Consider serum ferritin and iron studies. Serum or plasma cardiac trop onin I measurement (mass/volume)on 11-24-2020 Troponin I.cardiac [Mass/Vol] ng/mL 0-0.02 [facility] Comment on above: ELLA RI Cut off value > or equal to 0.03 ng/mL in conjunction with clinical conditions of myocardial infarction.([email or web address]) Troponin I.cardiac [Mass/Vol] ng/mL 0-0.02 [facility] Comment on above: ELLA RI Cut off value > or equal to 0.03 ng/mL in conjunction with clinical conditions of myocardial infarction.([email or web address]) Serum or plasma creatine kin ase MB (CKMB)/total creatine kinase (CK) ratio by calculaon 11-24-2020 CK.MB Calc [Catalytic fraction] 3.8 % 0.00-2.50 [facility] Serum or plasma creatine kin ase MB measurement (mass/volume)on 11-24-2020 CK.MB [Mass/Vol] 2.1 ng/mL 0.6-6.3 [facility] Teardrop cell detectionon Dacrocytes LM Ql (Bld) Rare Fi [facility] Activated partial thrombopla stin time (aPTT) in platelet poor plasma by coagulation aon 11-23-2020 aPTT Coag (PPP) [Time] 92.8 s 25.1-36.5 Fi [facility] Comment on above: Critical valueresult calledat 1511 on 11/23/20 Automated basophil %on 11-23 Basophils/100 WBC (Bld) 1.1 % [facility] Automated basophil counton 0 11-23-2020 Basophils (Bld) [#/Vol] 0.2 10*3/uL 0.0-0.2 [facility] Automated blood lymphocyte c ount (number/volume)on 11-23-2020 Lymphocytes (Bld) [#/Vol] 1.5 10*3/uL 1.00-4.8 [facility] Automated blood lymphocyte c ount as percentage of total leukocyteson 11-23-2020 Lymphocytes/100 WBC (Bld) 10.4 % [facility] Automated blood monocyte cou nton 11-23-2020 Monocytes (Bld) [#/Vol] 1.5 10*3/uL 0.0-0.8 [facility] Automated blood platelet cou nt (count/volume)on 11-23-2020 Platelets (Bld) [#/Vol] 327 10*3/uL 150-450 [facility] Automated blood platelet jose antonio n volume measurementon 11-23-2020 Platelet mean volume (Bld) [Entitic vol] 8.1 fL 6.3-10.7 [facility] Automated eosinophil %on Eosinophils/100 WBC (Bld) 1.5 % [facility] Automated eosinophil counton 11-23-2020 Eosinophils (Bld) [#/Vol] 0.2 10*3/uL 0.0-0.45 [facility] Automated erythrocyte distri bution width ratioon 11-23-2020 Erythrocyte distribution width (RBC) [Ratio] 21.1 % 11.9-15.3 [facility] Automated erythrocyte mean c orpuscular hemoglobin (mass per erythrocyte)on 11-23-2020 MCH (RBC) [Entitic mass] 21.2 pg 24.7-34.3 [facility] Automated erythrocyte mean c orpuscular hemoglobin concentration measurement (mass/volon 11-23-2020 MCHC (RBC) [Mass/Vol] 31.0 g/dL 32.0-35.0 [place] Automated erythrocyte mean c orpuscular volumeon 11-23-2020 MCV (RBC) [Entitic vol] 68.4 fL 80-100 [facility] Automated erythrocytes count in urine sediment (number/area)on 11-23-2020 RBC Auto (Urine sed) [#/Area] 20-49 [HPF] [facility] Automated leukocytes count i n urine sediment (number/area)on 11-23-2020 WBC Auto (Urine sed) [#/Area] 50-100 [HPF] [facility] Automated monocyte %on 11-23 Monocytes/100 WBC (Bld) 9.8 % [facility] Automated neutrophil %on Neutrophils/100 WBC (Bld) 77.2 % [facility] Bilirubin Test strip Ql (U)o n 11-23-2020 Bilirubin Ql (U) Negative Negative [facility] Blood anisocytosis detection on 11-23-2020 Anisocytosis Ql (Bld) Moderate [place] Blood erythrocytes automated count (number/volume)on 11-23-2020 RBC (Bld) [#/Vol] 3.91 10*6/uL 3.60-5.00 [facility] Blood hemoglobin measurement (mass/volume)on 11-23-2020 Hemoglobin (Bld) [Mass/Vol] 8.3 g/dL 11.8-15.4 [facility] Blood leukocytes automated c ount (number/volume)on 11-23-2020 WBC (Bld) [#/Vol] 14.9 10*3/uL 4.5-11.0 [facility] Blood neutrophil count by au tomated method (number/volume)on 11-23-2020 Neutrophils (Bld) [#/Vol] 11.5 10*3/uL 1.8-7.7 [facility] Blood polychromasia detectio n by light microscopyon 11-23-2020 Polychromasia LM Ql (Bld) Slight [facility] COVID-19 Positive/Negativeon 11-23-2020 COVID-19 Positive/Negative Negative Negative [facility] Comment on above: Reference: NegativeT esting for SARS-CoV-2 by RT-PCRThis test was developed and its performance characteristics determined by [employer] (BD) and validated at the [facility]. This test has not been [...] N gene ADITI+probe Ql (Resp) Negative Negative [facility] Comment on above: Reference: NegativeT esting for SARS-CoV-2 by RT-PCRThis test was developed and its performance characteristics determined by [employer] ([place]) and validated at the [facility]. This test has not been [...] COVID-19 SOFIAon 11-23-2020 COVID-19 MARANDA Negative Negative [facility] Comment on above: This is a duplicate Maranda SARS Antigen (CAIT) result to be used for statistical tracking purpose only. SARS-CoV+SARS-CoV-2 (COVID-19) Ag IA.rapid Ql (Resp) Negative Negative [facility] Comment on above: This is a duplicate Maranda SARS Antigen (CAIT) result to be used for statistical tracking purpose only. CT biopsyon 11-23-2020 Transferrin [Mass/Vol] 321 mg/dL 180-380 [facility] 11-[facility]-2020 Natriuretic peptide B (Bld) [Mass/Vol] 859.0 pg/mL 5-100 [facility] Color Auto (U)on 11-23-2020 Color (U) Yellow Yellow [facility] Creatine kinase [Enzymatic a ctivity/volume] in Serum or Plasmaon 11-23-2020 CK [Catalytic activity/Vol] 66 U/L 22-269 [facility] Estimated glomerular filtrat ion rate (GFR) non- Americanon 11-23-2020 GFR/1.73 sq M predicted among non-blacks MDRD (S/P/Bld) [Vol rate/Area] > 60 mL/Min [facility] Ferritin [Mass/volume] in Se rum or Plasmaon 11-23-2020 Ferritin [Mass/Vol] 39.9 ng/mL 11-306.8 [facility] Folate [Mass/volume] in Seru m or Plasmaon 11-23-2020 Folate [Mass/Vol] ng/mL >5.9 [facility] Comment on above: Folate reference ran ge: >5.9 ng/mlThe WHO technical consultation on folate and vitamin [id number] has determined that folate concentrations lessthan 4 ng/ml are considered deficient. Folate [Mass/Vol] ng/mL >5.9 [facility] Comment on above: Folate reference ran ge: >5.9 ng/mlThe WHO technical consultation on folate and vitamin [id number] has determined that folate concentrations lessthan 4 ng/ml are considered deficient. Hematocrit [Volume Fraction] of Blood by Automated counton 11-23-2020 Hematocrit (Bld) [Volume fraction] 26.7 % 34.0-46.4 [facility] Hematologyon 11-23-2020 Platelets (Bld) [#/Vol] Normal Normal [facility] PT Coag (PPP) [Time] 189.6 s 9.0-12.9 [facility] Hypochromia detectionon 10-29 Hypochromia Ql (Bld) Moderate [facility] Iron [Mass/volume] in Serum or Plasmaon 11-23-2020 Iron [Mass/Vol] 19 ug/dL 40-150 [facility] Iron binding capacity [Mass/ volume] in Serum or Plasmaon 11-23-2020 Iron binding capacity [Mass/Vol] 449 ug/dL 255-450 [facility] Iron saturation [Mass Fracti on] in Serum or Plasmaon 11-23-2020 Iron saturation [Mass fraction] 4.0 % 20-50 [facility] Ketones Auto test strip (U) [Mass/Vol]on 11-23-2020 Ketones (U) [Mass/Vol] Negative [facility] an d Antimicrobial susceptibilityon 11-23-2020 SARS-CoV-2 (COVID-19) RNA ADITI+probe Ql (Unsp spec) N/A [facility] Metabolic Panelon 11-23-2020 Magnesium [Mass/Vol] 1.8 mg/dL 1.6-2.6 [facility] Nitrite Test strip Ql (U)on 11-23-2020 Nitrite Ql (U) Positive Negative [facility] Otheron 11-23-2020 Absolute Reticulocyte Count 0.104 10*6/uL 0.024-0.08 4 [facility] Cobalamin (Vitamin B12) [Mass/Vol] 275 pg/mL 180-914 [facility] Percent Reticulocyte Count 2.6 % 0.5-1.5 [facility] Coronavirus 2019 PCR Interp N/A [facility] SARS Antigen (LFIA) On License Of [facility] Crenated Cell Slight [facility] GFR/1.73 sq M.predicted MDRD (S/P/Bld) [Vol rate/Area] > 60 mL/Min [facility] Comment on above: GFR estimated refere nce range: According to KDOQI guidelines, <60 ml/min/1.73m2 is sufficient to diagnose a patient with chronic kidney disease. Microcytosis Moderate [facility] Nucleated RBC/100 WBC (Bld) [Ratio] 0.1 % 0-0.5 [facility] Creatinine Clearance (Chem 74.80 [facility] Platelet Morphology Comment Normal Normal [facility] Poikilocytosis Slight [facility] Schistocytes Rare [facility] Ovalocyte detectionon 2020 Ovalocytes LM Ql (Bld) Slight [facility] Platelet poor plasma interna tional normalized ratio (INR) by coagulation assay (relaton 11-23-2020 INR Coag (PPP) [Relative time] 16.6 {INR} [facility] Comment on above: Critical valueresult calledat [...] 11-23-2020 Protein (U) [Mass/Vol] Negative Negative Fi [facility] RBC morphologyon 11-23-2020 RBC morphology finding Nom (Bld) N/A [facility] Serum or plasma calcium jackie urement (mass/volume)on 11-23-2020 Calcium [Mass/Vol] 8.4 mg/dL 8.2-10.2 [facility] Serum or plasma cardiac trop onin I measurement (mass/volume)on 11-23-2020 Troponin I.cardiac [Mass/Vol] ng/mL 0-0.02 [facility] Comment on above: ELLA RI Cut off value > or equal to 0.03 ng/mL in conjunction with clinical conditions of myocardial infarction.([email or web address]) Serum or plasma chloride jose antonio surement (moles/volume)on 11-23-2020 Chloride [Moles/Vol] 104 mmol/L 95-114 [facility] Serum or plasma creatine kin ase MB (CKMB)/total creatine kinase (CK) ratio by calculaon 11-23-2020 CK.MB Calc [Catalytic fraction] 2.8 % 0.00-2.50 [facility] Serum or plasma creatine kin ase MB measurement (mass/volume)on 11-23-2020 CK.MB [Mass/Vol] 1.9 ng/mL 0.6-6.3 [facility] Serum or plasma creatinine m easurement with calculation of estimated glomerular filtron 11-23-2020 Creatinine [Mass/Vol] 0.83 mg/dL 0.44-1.03 [place] Serum or plasma glucose jackie urement (mass/volume)on 11-23-2020 Glucose [Mass/Vol] 126 mg/dL 70-100 [facility] Comment on above: ADA recommended refe rence rangeRandom Glucose Reference Range is dependent on time and content of last meal. Glucose of more than 200 mg/dL in a nonstressed, ambulatory subject supports the diagnosis of Diabetes Mellitus. Serum or plasma potassium me asurement (moles/volume)on 11-23-2020 Potassium [Moles/Vol] 3.8 mmol/L 3.5-5.1 [place] Serum or plasma sodium measu rement (moles/volume)on 11-23-2020 Sodium [Moles/Vol] 135 mmol/L 136-146 [facility] Serum or plasma total carbon dioxide measurement (moles/volume)on 11-23-2020 CO2 [Moles/Vol] 22.0 mmol/L 22.0-30.0 [facility] Serum or plasma urea nitroge n measurement (mass/volume)on 11-23-2020 Urea nitrogen [Mass/Vol] 9 mg/dL 05-22 [facility] Specific gravity Auto test s trip (U) [Rel density]on 11-23-2020 Specific gravity (U) [Rel density] 1.007 1.001-1.03 0 [facility] Squamous epithelial cells de tection in urine sediment by light microscopyon 11-23-2020 Epithelial cells.squamous LM Ql (Urine sed) 3-4 [HPF] [facility] Target cellson 11-23-2020 Target cells LM Ql (Bld) Slight [facility] Teardrop cell detectionon Dacrocytes LM Ql (Bld) Rare [facility] Urinalysison 11-23-2020 Hyaline casts LM Ql (Urine sed) 0-8 [LPF] [facility] Urine bacteria detection by automated methodon 11-23-2020 Bacteria Auto Ql (U) 4+ None Seen [facility] Urine clarity by refractomet ry automatedon 11-23-2020 Clarity Refractometry automated (U) Clear Clear [facility] Urine culture routineon 10-29 Bacteria identified Cx Nom (U) Escherichia coli [facility] Urine glucose measurement by automated test strip (mass/volume)on 11-23-2020 Glucose Auto test strip (U) [Mass/Vol] Normal mg/dL Normal [facility] Urine hemoglobin detection b y automated test stripon 11-23-2020 Hemoglobin Auto test strip Ql (U) 3+ Negative [facility] Urine ketones measurement by automated test strip (mass/volume)on 11-23-2020 Ketones (U) [Mass/Vol] Negative Negative [facility] Urine leukocyte esterase det ection by automated test stripon 11-23-2020 Leukocyte esterase Auto test strip Ql (U) 4+ Negative [facility] Urine nitrite detection by t est stripon 11-23-2020 Nitrite Ql (U) Positive Negative [facility] Urine protein measurement by automated test strip (mass/volume)on 11-23-2020 Protein (U) [Mass/Vol] Negative Negative [facility] Urine total bilirubin detect ion by test stripon 11-23-2020 Bilirubin Ql (U) Negative Negative [facility] Urobilinogen Auto test strip (U) [Mass/Vol]on 11-23-2020 Urobilinogen (U) [Mass/Vol] Normal mg/dL Normal [facility] pH Auto test strip (U)on pH (U) 6.5 [pH] 5.0-9.0 [facility] Activated partial thrombopla stin time (aPTT) in platelet poor plasma by coagulation aon 08-16-2020 aPTT Coag (PPP) [Time] 55.8 s 23.0-35.0 [facility] Automated basophil %on 08-16 Basophils/100 WBC (Bld) 0.9 % [facility] Automated basophil counton 1 10-17-2019 Basophils (Bld) [#/Vol] 0.1 10*3/uL 0.0-0.2 [facility] Automated blood lymphocyte c ount (number/volume)on 08-16-2020 Lymphocytes (Bld) [#/Vol] 1.6 10*3/uL 1.00-4.8 [facility] Automated blood lymphocyte c ount as percentage of total leukocyteson 08-16-2020 Lymphocytes/100 WBC (Bld) 17.3 % [facility] Automated blood monocyte cou nton 08-16-2020 Monocytes (Bld) [#/Vol] 0.7 10*3/uL 0.0-0.8 [facility] Automated blood platelet cou nt (count/volume)on 08-16-2020 Platelets (Bld) [#/Vol] 305 10*3/uL 150-450 [facility] Automated blood platelet jose antonio n volume measurementon 08-16-2020 Platelet mean volume (Bld) [Entitic vol] 9.1 fL 6.3-10.7 [facility] Automated eosinophil %on Eosinophils/100 WBC (Bld) 1.6 % [facility] Automated eosinophil counton 08-16-2020 Eosinophils (Bld) [#/Vol] 0.1 10*3/uL 0.0-0.45 [facility] Automated erythrocyte distri bution width ratioon 08-16-2020 Erythrocyte distribution width (RBC) [Ratio] 18.8 % 11.9-15.3 [facility] Automated erythrocyte mean c orpuscular hemoglobin (mass per erythrocyte)on 08-16-2020 MCH (RBC) [Entitic mass] 23.9 pg 24.7-34.3 [facility] Automated erythrocyte mean c orpuscular hemoglobin concentration measurement (mass/volon 08-16-2020 MCHC (RBC) [Mass/Vol] 31.1 g/dL 32.0-35.0 [place] Automated erythrocyte mean c orpuscular volumeon 08-16-2020 MCV (RBC) [Entitic vol] 76.9 fL 80-100 [facility] Automated erythrocytes count in urine sediment (number/area)on 08-16-2020 RBC Auto (Urine sed) [#/Area] 10-19 [HPF] [facility] Automated leukocytes count i n urine sediment (number/area)on 08-16-2020 WBC Auto (Urine sed) [#/Area] Innumerable [HPF] [facility] Automated monocyte %on 08-16 Monocytes/100 WBC (Bld) 7.6 % [facility] Automated neutrophil %on Neutrophils/100 WBC (Bld) 72.6 % [facility] Automated urine color determ inationon 08-16-2020 Color (U) Yellow Yellow [facility] Automated urine hyaline cast s count (number/volume)on 08-16-2020 Hyaline casts Auto (U) [#/Vol] None seen [LPF] [facility] Blood erythrocytes automated count (number/volume)on 08-16-2020 RBC (Bld) [#/Vol] 4.45 10*6/uL 3.60-5.00 [facility] Blood hemoglobin measurement (mass/volume)on 08-16-2020 Hemoglobin (Bld) [Mass/Vol] 10.7 g/dL 11.8-15.4 [facility] Blood leukocytes automated c ount (number/volume)on 08-16-2020 WBC (Bld) [#/Vol] 9.1 10*3/uL 3.8-11.6 [facility] Blood neutrophil count by au tomated method (number/volume)on 08-16-2020 Neutrophils (Bld) [#/Vol] 6.6 10*3/uL 1.8-7.7 [facility] COVID-19 Detected/Not Detect edon 08-16-2020 COVID-19 Detected/Not Detected Not detected Not Detecte [facility] Comment on above: This is a duplicate test result based off of the RP2.1 COVID (EUA) test performed within the Microbiology department. [facility] 08-16-2020 Natriuretic peptide B (Bld) [Mass/Vol] 1123.0 pg/mL 5-100 [facility] Casts typing in urine sedime nt by light microscopyon 08-16-2020 Casts LM Nom (Urine sed) None seen [LPF] None Seen [facility] Creatine kinase [Enzymatic a ctivity/volume] in Serum or Plasmaon 08-16-2020 CK [Catalytic activity/Vol] 72 U/L 22-269 [facility] Estimated glomerular filtrat ion rate (GFR) non- Americanon 08-16-2020 GFR/1.73 sq M predicted among non-blacks MDRD (S/P/Bld) [Vol rate/Area] 56 mL/min/{1.73_m2} [facility] Hematocrit [Volume Fraction] of Blood by Automated counton 08-16-2020 Hematocrit (Bld) [Volume fraction] 34.2 % 34.0-46.4 [facility] Hematologyon 08-16-2020 PT Coag (PPP) [Time] 144.3 s 9.0-12.9 [facility] PT Coag (PPP) [Time] 132.6 s 9.0-12.9 [facility] Lactate dehydrogenase measur ement (enzymatic activity/volume)on 08-16-2020 LDH (Unsp spec) [Catalytic activity/Vol] 268 U/L 45-190 [facility] Metabolic Panelon 08-16-2020 Magnesium [Mass/Vol] 1.8 mg/dL 1.6-2.6 [facility] Otheron 08-16-2020 Respiratory Panel (PCR) [facility] D-Dimer Quantitative (PE/DVT) < 200 ng/mL 0-243 [facility] Comment on above: The reference range [...] sq M.predicted MDRD (S/P/Bld) [Vol rate/Area] mL/min/{1.73_m2} [facility] Comment on above: GFR estimated refere nce range: According to KDOQI guidelines, <60 ml/min/1.73m2 is sufficient to diagnose a patient with chronic kidney disease. Nucleated RBC/100 WBC (Bld) [Ratio] 0.1 % 0-0.5 [facility] Creatinine Clearance (Chem 61.68 [facility] Platelet poor plasma interna tional normalized ratio (INR) by coagulation assay (relaton 08-16-2020 INR Coag (PPP) [Relative time] 12.6 {INR} [facility] Comment on above: Results calledat 000 [...] INR Coag (PPP) [Relative time] 11.6 {INR} [facility] Comment on above: Critical valueresult calledat [...] (mass/volume)on 08-16-2020 Calcium [Mass/Vol] 8.4 mg/dL 8.2-10.2 [facility] Serum or plasma cardiac trop onin I measurement (mass/volume)on 08-16-2020 Troponin I.cardiac [Mass/Vol] ng/mL 0-0.02 [facility] Comment on above: ELLA RI Cut off value > or equal to 0.03 ng/mL in conjunction with clinical conditions of myocardial infarction.([email or web address]) Serum or plasma chloride jose antonio surement (moles/volume)on 08-16-2020 Chloride [Moles/Vol] 103 mmol/L 95-114 [facility] Serum or plasma creatine kin ase MB (CKMB)/total creatine kinase (CK) ratio by calculaon 08-16-2020 CK.MB Calc [Catalytic fraction] 3.7 0.00-2.50 [facility] Serum or plasma creatine kin ase MB measurement (mass/volume)on 08-16-2020 CK.MB [Mass/Vol] 2.7 ng/mL 0.6-6.3 [facility] Serum or plasma creatinine m easurement with calculation of estimated glomerular filtron 08-16-2020 Creatinine [Mass/Vol] 1.03 mg/dL 0.44-1.03 [place] Serum or plasma glucose jackie urement (mass/volume)on 08-16-2020 Glucose [Mass/Vol] 120 mg/dL 70-100 [facility] Comment on above: ADA recommended refe rence rangeRandom Glucose Reference Range is dependent on time and content of last meal. Glucose of more than 200 mg/dL in a nonstressed, ambulatory subject supports the diagnosis of Diabetes Mellitus. Serum or plasma potassium me asurement (moles/volume)on 08-16-2020 Potassium [Moles/Vol] 4.3 mmol/L 3.5-5.1 [place] Serum or plasma sodium measu rement (moles/volume)on 08-16-2020 Sodium [Moles/Vol] 140 mmol/L 136-146 [facility] Serum or plasma total carbon dioxide measurement (moles/volume)on 08-16-2020 CO2 [Moles/Vol] 25.2 mmol/L 22.0-30.0 [facility] Serum or plasma urea nitroge n measurement (mass/volume)on 08-16-2020 Urea nitrogen [Mass/Vol] 9 mg/dL 9- [facility] Specific gravity of Urine by Automated test stripon 08-16-2020 Specific gravity (U) [Rel density] 1.014 1.001-1.03 0 [facility] Squamous epithelial cells de tection in urine sediment by light microscopyon 08-16-2020 Epithelial cells.squamous LM Ql (Urine sed) 5-9 [HPF] [facility] Trichomonas vaginalis detect ion in urine sediment by light microscopyon 08-16-2020 T. vaginalis LM Ql (Urine sed) 3-4 [HPF] None Seen [facility] Urine bacteria detection by automated methodon 08-16-2020 Bacteria Auto Ql (U) None seen None Seen [facility] Urine clarity by refractomet ry automatedon 08-16-2020 Clarity Refractometry automated (U) Cloudy Clear [facility] Urine glucose measurement by automated test strip (mass/volume)on 08-16-2020 Glucose Auto test strip (U) [Mass/Vol] Normal mg/dL Normal [facility] Urine hemoglobin detection b y automated test stripon 08-16-2020 Hemoglobin Auto test strip Ql (U) 1+ Negative [facility] Urine ketones measurement by automated test strip (mass/volume)on 08-16-2020 Ketones (U) [Mass/Vol] Negative [facility] Urine leukocyte esterase det ection by automated test stripon 08-16-2020 Leukocyte esterase Auto test strip Ql (U) 4+ Negative [facility] Urine nitrite detection by t est stripon 08-16-2020 Nitrite Ql (U) Negative Negative [facility] Urine pH measurement by auto mated test stripon 08-16-2020 pH (U) 6.5 [pH] 5.0-9.0 [facility] Urine protein measurement by automated test strip (mass/volume)on 08-16-2020 Protein (U) [Mass/Vol] Trace mg/dL Negative F [facility] Urine total bilirubin detect ion by test stripon 08-16-2020 Bilirubin Ql (U) Negative Negative [facility] Urine urobilinogen measureme nt by automated test strip (mass/volume)on 08-16-2020 Urobilinogen (U) [Mass/Vol] Normal mg/dL Normal [facility] Activated partial thrombopla stin time (aPTT) in platelet poor plasma by coagulation aon 07-26-2020 aPTT Coag (PPP) [Time] 32.4 s 23.0-35.0 [facility] Automated basophil %on 07-26 Basophils/100 WBC (Bld) 1.5 % [facility] Automated basophil counton 1 09-25-2019 Basophils (Bld) [#/Vol] 0.1 10*3/uL 0.0-0.2 [facility] Automated blood lymphocyte c ount (number/volume)on 07-26-2020 Lymphocytes (Bld) [#/Vol] 1.9 10*3/uL 1.00-4.8 [facility] Automated blood lymphocyte c ount as percentage of total leukocyteson 07-26-2020 Lymphocytes/100 WBC (Bld) 24.7 % [facility] Automated blood monocyte cou nton 07-26-2020 Monocytes (Bld) [#/Vol] 0.8 10*3/uL 0.0-0.8 [facility] Automated blood platelet cou nt (count/volume)on 07-26-2020 Platelets (Bld) [#/Vol] 207 10*3/uL 150-450 [facility] Automated blood platelet jose antonio n volume measurementon 07-26-2020 Platelet mean volume (Bld) [Entitic vol] 9.5 fL 6.3-10.7 [facility] Automated eosinophil %on Eosinophils/100 WBC (Bld) 3.4 % [facility] Automated eosinophil counton 07-26-2020 Eosinophils (Bld) [#/Vol] 0.3 10*3/uL 0.0-0.45 [facility] Automated erythrocyte distri bution width ratioon 07-26-2020 Erythrocyte distribution width (RBC) [Ratio] 20.9 % 11.9-15.3 [facility] Automated erythrocyte mean c orpuscular hemoglobin (mass per erythrocyte)on 07-26-2020 MCH (RBC) [Entitic mass] 24.3 pg 24.7-34.3 [facility] Automated erythrocyte mean c orpuscular hemoglobin concentration measurement (mass/volon 07-26-2020 MCHC (RBC) [Mass/Vol] 31.3 g/dL 32.0-35.0 [place] Automated erythrocyte mean c orpuscular volumeon 07-26-2020 MCV (RBC) [Entitic vol] 77.8 fL 80-100 [facility] Automated monocyte %on 07-26 Monocytes/100 WBC (Bld) 10.5 % [facility] Automated neutrophil %on Neutrophils/100 WBC (Bld) 59.9 % [facility] Blood anisocytosis detection on 07-26-2020 Anisocytosis Ql (Bld) Marked [place] Blood erythrocytes automated count (number/volume)on 07-26-2020 RBC (Bld) [#/Vol] 4.84 10*6/uL 3.60-5.00 [facility] Blood hemoglobin measurement (mass/volume)on 07-26-2020 Hemoglobin (Bld) [Mass/Vol] 11.8 g/dL 11.8-15.4 [facility] Blood leukocytes automated c ount (number/volume)on 07-26-2020 WBC (Bld) [#/Vol] 7.8 10*3/uL 4.5-11.0 [facility] Blood neutrophil count by au tomated method (number/volume)on 07-26-2020 Neutrophils (Bld) [#/Vol] 4.7 10*3/uL 1.8-7.7 [facility] Body fluid albumin measureme nt (mass/volume)on 07-26-2020 Albumin (Body fld) [Mass/Vol] 3.5 g/dL 3.2-5.5 [facility] Creatine kinase [Enzymatic a ctivity/volume] in Serum or Plasmaon 07-26-2020 CK [Catalytic activity/Vol] 58 U/L 22-269 [facility] Estimated glomerular filtrat ion rate (GFR) non- Americanon 07-26-2020 GFR/1.73 sq M predicted among non-blacks MDRD (S/P/Bld) [Vol rate/Area] mL/min/{1.73_m2} [facility] Hematocrit [Volume Fraction] of Blood by Automated counton 07-26-2020 Hematocrit (Bld) [Volume fraction] 37.7 % 34.0-46.4 [facility] Hematologyon 07-26-2020 Platelets (Bld) [#/Vol] Normal Normal [facility] PT Coag (PPP) [Time] 16.1 s 9.0-12.9 [facility] Hypochromia detectionon 07-01 Hypochromia Ql (Bld) Slight [facility] Metabolic Panelon 07-26-2020 Magnesium [Mass/Vol] 1.7 mg/dL 1.6-2.6 [facility] Otheron 07-26-2020 GFR/1.73 sq M.predicted MDRD (S/P/Bld) [Vol rate/Area] mL/min/{1.73_m2} [facility] Comment on above: GFR estimated refere nce range: According to KDOQI guidelines, <60 ml/min/1.73m2 is sufficient to diagnose a patient with chronic kidney disease. Microcytosis Slight [facility] Nucleated RBC/100 WBC (Bld) [Ratio] 0.1 % 0-0.5 [facility] Creatinine Clearance (Chem 66.06 [facility] Platelet Morphology Comment Normal Normal [facility] Platelet poor plasma interna tional normalized ratio (INR) by coagulation assay (relaton 07-26-2020 INR Coag (PPP) [Relative time] 1.4 {INR} [facility] Comment on above: INR Therapeutic Rang [...] Plasmaon 07-26-2020 Protein [Mass/Vol] 6.4 g/dL 6.1-7.9 [facility] RBC morphologyon 07-26-2020 RBC morphology finding Nom (Bld) N/A [facility] Serum globulin measurement b y calculation (mass/volume)on 07-26-2020 Globulin (S) [Mass/Vol] 2.9 g/dL [facility] Serum or plasma alanine hernandez otransferase measurement without P-5'-P (enzymatic activion 07-26-2020 ALT No additional P-5'-P [Catalytic activity/Vol] 21 U/L 10-60 [facility] Serum or plasma albumin/glob ulin mass ratioon 07-26-2020 Albumin/Globulin [Mass ratio] 1.2 {ratio} [facility] Serum or plasma alkaline rosanna sphatase measurement (enzymatic activity/volume)on 07-26-2020 ALP [Catalytic activity/Vol] 153 U/L 32-92 [facility] Serum or plasma aspartate am inotransferase measurement (enzymatic activity/volume)on 07-26-2020 AST [Catalytic activity/Vol] 22 U/L 10-42 [facility] Serum or plasma calcium jackie urement (mass/volume)on 07-26-2020 Calcium [Mass/Vol] 8.7 mg/dL 8.2-10.2 [facility] Serum or plasma cardiac trop onin I measurement (mass/volume)on 07-26-2020 Troponin I.cardiac [Mass/Vol] ng/mL 0-0.02 [facility] Comment on above: ELLA RI Cut off value > or equal to 0.03 ng/mL in conjunction with clinical conditions of myocardial infarction.([email or web address]) Serum or plasma chloride jose antonio surement (moles/volume)on 07-26-2020 Chloride [Moles/Vol] 106 mmol/L 95-114 [facility] Serum or plasma creatine kin ase MB (CKMB)/total creatine kinase (CK) ratio by calculaon 07-26-2020 CK.MB Calc [Catalytic fraction] 3.7 0.00-2.50 [facility] Serum or plasma creatine kin ase MB measurement (mass/volume)on 07-26-2020 CK.MB [Mass/Vol] 2.2 ng/mL 0.6-6.3 [facility] Serum or plasma creatinine m easurement with calculation of estimated glomerular filtron 07-26-2020 Creatinine [Mass/Vol] 0.96 mg/dL 0.44-1.03 [place] Serum or plasma glucose jackie urement (mass/volume)on 07-26-2020 Glucose [Mass/Vol] 96 mg/dL 70-100 [facility] Comment on above: ADA recommended refe rence rangeRandom Glucose Reference Range is dependent on time and content of last meal. Glucose of more than 200 mg/dL in a nonstressed, ambulatory subject supports the diagnosis of Diabetes Mellitus. Serum or plasma potassium me asurement (moles/volume)on 07-26-2020 Potassium [Moles/Vol] 4.2 mmol/L 3.5-5.1 [place] Serum or plasma sodium measu rement (moles/volume)on 07-26-2020 Sodium [Moles/Vol] 138 mmol/L 136-146 [facility] Serum or plasma total biliru bin measurement (mass/volume)on 07-26-2020 Bilirubin [Mass/Vol] 0.3 mg/dL 0.3-1.2 [facility] Serum or plasma total carbon dioxide measurement (moles/volume)on 07-26-2020 CO2 [Moles/Vol] 22.5 mmol/L 22.0-30.0 [facility] Serum or plasma urea nitroge n measurement (mass/volume)on 07-26-2020 Urea nitrogen [Mass/Vol] 14 mg/dL 05-22 [facility] Activated partial thrombopla stin time (aPTT) in platelet poor plasma by coagulation aon 07-22-2020 aPTT Coag (PPP) [Time] 36.7 s 23.0-35.0 [facility] Automated basophil %on 07-22 Basophils/100 WBC (Bld) 1.1 % [facility] Automated basophil counton 1 09-21-2019 Basophils (Bld) [#/Vol] 0.1 10*3/uL 0.0-0.2 [facility] Automated blood lymphocyte c ount (number/volume)on 07-22-2020 Lymphocytes (Bld) [#/Vol] 1.8 10*3/uL 1.00-4.8 [facility] Automated blood lymphocyte c ount as percentage of total leukocyteson 07-22-2020 Lymphocytes/100 WBC (Bld) 18.8 % [facility] Automated blood monocyte cou nton 07-22-2020 Monocytes (Bld) [#/Vol] 0.9 10*3/uL 0.0-0.8 [facility] Automated blood platelet cou nt (count/volume)on 07-22-2020 Platelets (Bld) [#/Vol] 201 10*3/uL 150-450 [facility] Automated blood platelet jose antonio n volume measurementon 07-22-2020 Platelet mean volume (Bld) [Entitic vol] 9.4 fL 6.3-10.7 [facility] Automated eosinophil %on Eosinophils/100 WBC (Bld) 2.1 % [facility] Automated eosinophil counton 07-22-2020 Eosinophils (Bld) [#/Vol] 0.2 10*3/uL 0.0-0.45 [facility] Automated erythrocyte distri bution width ratioon 07-22-2020 Erythrocyte distribution width (RBC) [Ratio] 20.7 % 11.9-15.3 [facility] Automated erythrocyte mean c orpuscular hemoglobin (mass per erythrocyte)on 07-22-2020 MCH (RBC) [Entitic mass] 24.0 pg 24.7-34.3 [facility] Automated erythrocyte mean c orpuscular hemoglobin concentration measurement (mass/volon 07-22-2020 MCHC (RBC) [Mass/Vol] 31.1 g/dL 32.0-35.0 [place] Automated erythrocyte mean c orpuscular volumeon 07-22-2020 MCV (RBC) [Entitic vol] 77.1 fL 80-100 [facility] Automated monocyte %on 07-22 Monocytes/100 WBC (Bld) 9.4 % [facility] Automated neutrophil %on Neutrophils/100 WBC (Bld) 68.6 % [facility] Blood erythrocytes automated count (number/volume)on 07-22-2020 RBC (Bld) [#/Vol] 4.68 10*6/uL 3.60-5.00 [facility] Blood hemoglobin measurement (mass/volume)on 07-22-2020 Hemoglobin (Bld) [Mass/Vol] 11.2 g/dL 11.8-15.4 [facility] Blood leukocytes automated c ount (number/volume)on 07-22-2020 WBC (Bld) [#/Vol] 9.5 10*3/uL 4.5-11.0 [facility] Blood neutrophil count by au tomated method (number/volume)on 07-22-2020 Neutrophils (Bld) [#/Vol] 6.5 10*3/uL 1.8-7.7 [facility] Body fluid albumin measureme nt (mass/volume)on 07-22-2020 Albumin (Body fld) [Mass/Vol] 3.5 g/dL 3.2-5.5 [facility] COVID-19 SOFIAon 07-22-2020 COVID- MARANDA Negative Negative [facility] Comment on above: This is a duplicate test result based off of the Maranda SARS Antigen (CAIT) test performed within the Microbiology department. [facility] 07-22-2020 Natriuretic peptide B (Bld) [Mass/Vol] 508.0 pg/mL 5-100 [facility] Estimated glomerular filtrat ion rate (GFR) non- Americanon 07-22-2020 GFR/1.73 sq M predicted among non-blacks MDRD (S/P/Bld) [Vol rate/Area] 58 mL/min/{1.73_m2} [facility] Hematocrit [Volume Fraction] of Blood by Automated counton 07-22-2020 Hematocrit (Bld) [Volume fraction] 36.1 % 34.0-46.4 [facility] Hematologyon 07-22-2020 PT Coag (PPP) [Time] 33.6 s 9.0-12.9 [facility] Metabolic Panelon 07-22-2020 Magnesium [Mass/Vol] 1.9 mg/dL 1.6-2.6 [facility] Otheron 07-22-2020 SARS Antigen (LFIA) [facility] GFR/1.73 sq M.predicted MDRD (S/P/Bld) [Vol rate/Area] mL/min/{1.73_m2} [facility] Comment on above: GFR estimated refere nce range: According to KDOQI guidelines, <60 ml/min/1.73m2 is sufficient to diagnose a patient with chronic kidney disease. Nucleated RBC/100 WBC (Bld) [Ratio] 0.0 % 0-0.5 [facility] Creatinine Clearance (Chem 64.10 [facility] Platelet poor plasma interna tional normalized ratio (INR) by coagulation assay (relaton 07-22-2020 INR Coag (PPP) [Relative time] 3.0 {INR} [facility] Comment on above: INR Therapeutic Rang [...] Plasmaon 07-22-2020 Protein [Mass/Vol] 6.3 g/dL 6.1-7.9 [facility] Serum globulin measurement b y calculation (mass/volume)on 07-22-2020 Globulin (S) [Mass/Vol] 2.8 g/dL [facility] Serum or plasma alanine hernandez otransferase measurement without P-5'-P (enzymatic activion 07-22-2020 ALT No additional P-5'-P [Catalytic activity/Vol] 32 U/L 10-60 [facility] Serum or plasma albumin/glob ulin mass ratioon 07-22-2020 Albumin/Globulin [Mass ratio] 1.3 {ratio} [facility] Serum or plasma alkaline rosanna sphatase measurement (enzymatic activity/volume)on 07-22-2020 ALP [Catalytic activity/Vol] 145 U/L 32-92 [facility] Serum or plasma aspartate am inotransferase measurement (enzymatic activity/volume)on 07-22-2020 AST [Catalytic activity/Vol] 34 U/L 10-42 [facility] Serum or plasma calcium jackie urement (mass/volume)on 07-22-2020 Calcium [Mass/Vol] 8.6 mg/dL 8.2-10.2 [facility] Serum or plasma cardiac trop onin I measurement (mass/volume)on 07-22-2020 Troponin I.cardiac [Mass/Vol] ng/mL 0-0.02 [facility] Comment on above: ELLA RI Cut off value > or equal to 0.03 ng/mL in conjunction with clinical conditions of myocardial infarction.([email or web address]) Serum or plasma chloride jose antonio surement (moles/volume)on 07-22-2020 Chloride [Moles/Vol] 102 mmol/L 95-114 [facility] Serum or plasma creatinine m easurement with calculation of estimated glomerular filtron 07-22-2020 Creatinine [Mass/Vol] 1.01 mg/dL 0.44-1.03 [place] Serum or plasma glucose jackie urement (mass/volume)on 07-22-2020 Glucose [Mass/Vol] 100 mg/dL 70-100 [facility] Comment on above: ADA recommended refe rence rangeRandom Glucose Reference Range is dependent on time and content of last meal. Glucose of more than 200 mg/dL in a nonstressed, ambulatory subject supports the diagnosis of Diabetes Mellitus. Serum or plasma potassium me asurement (moles/volume)on 07-22-2020 Potassium [Moles/Vol] 4.5 mmol/L 3.5-5.1 [place] Serum or plasma sodium measu rement (moles/volume)on 07-22-2020 Sodium [Moles/Vol] 138 mmol/L 136-146 [facility] Serum or plasma total biliru bin measurement (mass/volume)on 07-22-2020 Bilirubin [Mass/Vol] 0.3 mg/dL 0.3-1.2 [facility] Serum or plasma total carbon dioxide measurement (moles/volume)on 07-22-2020 CO2 [Moles/Vol] 24.6 mmol/L 22.0-30.0 [facility] Serum or plasma urea nitroge n measurement (mass/volume)on 07-22-2020 Urea nitrogen [Mass/Vol] 15 mg/dL 05-22 [facility] Activated partial thrombopla stin time (aPTT) in platelet poor plasma by coagulation aon 07-19-2020 aPTT Coag (PPP) [Time] 41.0 s 23.0-35.0 [facility] Albumin [Mass/volume] in Ser um or Plasmaon 07-19-2020 Albumin [Mass/Vol] 3.9 g/dL 3.2-5.5 [facility] Automated basophil %on 07-19 Basophils/100 WBC (Bld) 1.7 % [facility] Automated basophil counton 1 09-18-2019 Basophils (Bld) [#/Vol] 0.1 10*3/uL 0.0-0.2 [facility] Automated blood lymphocyte c ount (number/volume)on 07-19-2020 Lymphocytes (Bld) [#/Vol] 2.9 10*3/uL 1.00-4.8 [facility] Automated blood lymphocyte c ount as percentage of total leukocyteson 07-19-2020 Lymphocytes/100 WBC (Bld) 34.7 % [facility] Automated blood monocyte cou nton 07-19-2020 Monocytes (Bld) [#/Vol] 0.9 10*3/uL 0.0-0.8 [facility] Automated blood platelet cou nt (count/volume)on 07-19-2020 Platelets (Bld) [#/Vol] 221 10*3/uL 150-450 [facility] Automated blood platelet jose antonio n volume measurementon 07-19-2020 Platelet mean volume (Bld) [Entitic vol] 9.4 fL 6.3-10.7 [facility] Automated eosinophil %on Eosinophils/100 WBC (Bld) 3.2 % [facility] Automated eosinophil counton 07-19-2020 Eosinophils (Bld) [#/Vol] 0.3 10*3/uL 0.0-0.45 [facility] Automated erythrocyte distri bution width ratioon 07-19-2020 Erythrocyte distribution width (RBC) [Ratio] 21.2 % 11.9-15.3 [facility] Automated erythrocyte mean c orpuscular hemoglobin (mass per erythrocyte)on 07-19-2020 MCH (RBC) [Entitic mass] 24.1 pg 24.7-34.3 [facility] Automated erythrocyte mean c orpuscular hemoglobin concentration measurement (mass/volon 07-19-2020 MCHC (RBC) [Mass/Vol] 31.0 g/dL 32.0-35.0 [place] Automated erythrocyte mean c orpuscular volumeon 07-19-2020 MCV (RBC) [Entitic vol] 77.7 fL 80-100 [facility] Automated erythrocytes count in urine sediment (number/area)on 07-19-2020 RBC Auto (Urine sed) [#/Area] 10-19 [HPF] [facility] Automated leukocytes count i n urine sediment (number/area)on 07-19-2020 WBC Auto (Urine sed) [#/Area] Innumerable [HPF] [facility] Automated monocyte %on 07-19 Monocytes/100 WBC (Bld) 11.0 % [facility] Automated neutrophil %on Neutrophils/100 WBC (Bld) 49.4 % [facility] Automated urine color determ inationon 07-19-2020 Color (U) Yellow Yellow [facility] Blood anisocytosis detection on 07-19-2020 Anisocytosis Ql (Bld) Marked [place] Blood erythrocytes automated count (number/volume)on 07-19-2020 RBC (Bld) [#/Vol] 5.04 10*6/uL 3.60-5.00 [facility] Blood hemoglobin measurement (mass/volume)on 07-19-2020 Hemoglobin (Bld) [Mass/Vol] 12.1 g/dL 11.8-15.4 [facility] Blood leukocytes automated c ount (number/volume)on 07-19-2020 WBC (Bld) [#/Vol] 8.4 10*3/uL 4.5-11.0 [facility] Blood neutrophil count by au tomated method (number/volume)on 07-19-2020 Neutrophils (Bld) [#/Vol] 4.2 10*3/uL 1.8-7.7 [facility] 07-19-2020 Natriuretic peptide B (Bld) [Mass/Vol] 357.0 pg/mL 5-100 [facility] Creatine kinase [Enzymatic a ctivity/volume] in Serum or Plasmaon 07-19-2020 CK [Catalytic activity/Vol] 81 U/L 22-269 [facility] Estimated glomerular filtrat ion rate (GFR) non- Americanon 07-19-2020 GFR/1.73 sq M predicted among non-blacks MDRD (S/P/Bld) [Vol rate/Area] mL/min/{1.73_m2} [facility] Hematocrit [Volume Fraction] of Blood by Automated counton 07-19-2020 Hematocrit (Bld) [Volume fraction] 39.2 % 34.0-46.4 [facility] Hematologyon 07-19-2020 Platelets (Bld) [#/Vol] Normal Normal [facility] PT Coag (PPP) [Time] 51.9 s 9.0-12.9 [facility] Metabolic Panelon 07-19-2020 Magnesium [Mass/Vol] 2.1 mg/dL 1.6-2.6 [facility] Otheron 07-19-2020 Acanthocytes Slight [facility] GFR/1.73 sq M.predicted MDRD (S/P/Bld) [Vol rate/Area] mL/min/{1.73_m2} [facility] Comment on above: GFR estimated refere nce range: According to KDOQI guidelines, <60 ml/min/1.73m2 is sufficient to diagnose a patient with chronic kidney disease. Nucleated RBC/100 WBC (Bld) [Ratio] 0.1 % 0-0.5 [facility] Creatinine Clearance (Chem 67.89 [facility] Platelet Morphology Comment Normal Normal [facility] Poikilocytosis Slight [facility] Schistocytes Slight [facility] Ovalocyte detectionon 2019 Ovalocytes LM Ql (Bld) Moderate [facility] Plate[facility] poor plasma interna tional normalized ratio (INR) by coagulation assay (relaton 07-19-2020 INR Coag (PPP) [Relative time] 4.6 {INR} [facility] Comment on above: INR Therapeutic Rang [...] Plasmaon 07-19-2020 Protein [Mass/Vol] 7.1 g/dL 6.1-7.9 [facility] RBC morphologyon 07-19-2020 RBC morphology finding Nom (Bld) N/A [facility] Serum globulin measurement b y calculation (mass/volume)on 07-19-2020 Globulin (S) [Mass/Vol] 3.2 g/dL [facility] Serum or plasma alanine hernandez otransferase measurement without P-5'-P (enzymatic activion 07-19-2020 ALT No additional P-5'-P [Catalytic activity/Vol] 32 U/L 10-60 [facility] Serum or plasma albumin/glob ulin mass ratioon 07-19-2020 Albumin/Globulin [Mass ratio] 1.2 {ratio} [facility] Serum or plasma alkaline rosanna sphatase measurement (enzymatic activity/volume)on 07-19-2020 ALP [Catalytic activity/Vol] 152 U/L 32-92 [facility] Serum or plasma aspartate am inotransferase measurement (enzymatic activity/volume)on 07-19-2020 AST [Catalytic activity/Vol] 42 U/L 10-42 [facility] Serum or plasma calcium jackie urement (mass/volume)on 07-19-2020 Calcium [Mass/Vol] 9.0 mg/dL 8.2-10.2 [facility] Serum or plasma cardiac trop onin I measurement (mass/volume)on 07-19-2020 Troponin I.cardiac [Mass/Vol] ng/mL 0-0.02 [facility] Comment on above: ELLA RI Cut off value > or equal to 0.03 ng/mL in conjunction with clinical conditions of myocardial infarction.([email or web address]) Serum or plasma chloride jose antonio surement (moles/volume)on 07-19-2020 Chloride [Moles/Vol] 104 mmol/L 95-114 [facility] Serum or plasma creatine kin ase MB (CKMB)/total creatine kinase (CK) ratio by calculaon 07-19-2020 CK.MB Calc [Catalytic fraction] 3.3 0.00-2.50 [facility] Serum or plasma creatine kin ase MB measurement (mass/volume)on 07-19-2020 CK.MB [Mass/Vol] 2.7 ng/mL 0.6-6.3 [facility] Serum or plasma creatinine m easurement with calculation of estimated glomerular filtron 07-19-2020 Creatinine [Mass/Vol] 0.94 mg/dL 0.44-1.03 [place] Serum or plasma glucose jackie urement (mass/volume)on 07-19-2020 Glucose [Mass/Vol] 98 mg/dL 70-100 [facility] Comment on above: ADA recommended refe rence rangeRandom Glucose Reference Range is dependent on time and content of last meal. Glucose of more than 200 mg/dL in a nonstressed, ambulatory subject supports the diagnosis of Diabetes Mellitus. Serum or plasma potassium me asurement (moles/volume)on 07-19-2020 Potassium [Moles/Vol] 4.7 mmol/L 3.5-5.1 [place] Serum or plasma sodium measu rement (moles/volume)on 07-19-2020 Sodium [Moles/Vol] 139 mmol/L 136-146 [facility] Serum or plasma total biliru bin measurement (mass/volume)on 07-19-2020 Bilirubin [Mass/Vol] 0.5 mg/dL 0.3-1.2 [facility] Serum or plasma total carbon dioxide measurement (moles/volume)on 07-19-2020 CO2 [Moles/Vol] 21.9 mmol/L 22.0-30.0 [facility] Serum or plasma urea nitroge n measurement (mass/volume)on 07-19-2020 Urea nitrogen [Mass/Vol] 17 mg/dL 05-22 [facility] Specific gravity of Urine by Automated test stripon 07-19-2020 Specific gravity (U) [Rel density] 1.015 1.001-1.03 0 [facility] Squamous epithelial cells de tection in urine sediment by light microscopyon 07-19-2020 Epithelial cells.squamous LM Ql (Urine sed) 0-1 [HPF] [facility] Urinalysison 07-19-2020 Hyaline casts LM Ql (Urine sed) 0-8 [LPF] [facility] Urine bacteria detection by automated methodon 07-19-2020 Bacteria Auto Ql (U) None seen None Seen [facility] Urine clarity by refractomet ry automatedon 07-19-2020 Clarity Refractometry automated (U) Clear Clear [facility] Urine culture routineon 07-01 Bacteria identified Cx Nom (U) 2 Days [facility] Urine glucose measurement by automated test strip (mass/volume)on 07-19-2020 Glucose Auto test strip (U) [Mass/Vol] Normal mg/dL Normal [facility] Urine hemoglobin detection b y automated test stripon 07-19-2020 Hemoglobin Auto test strip Ql (U) 1+ Negative [facility] Urine ketones measurement by automated test strip (mass/volume)on 07-19-2020 Ketones (U) [Mass/Vol] Negative Negative [facility] Urine leukocyte esterase det ection by automated test stripon 07-19-2020 Leukocyte esterase Auto test strip Ql (U) 4+ Negative [facility] Urine nitrite detection by t est stripon 07-19-2020 Nitrite Ql (U) Negative Negative [facility] Urine pH measurement by auto mated test stripon 07-19-2020 pH (U) 6.0 [pH] 5.0-9.0 [facility] Urine protein measurement by automated test strip (mass/volume)on 07-19-2020 Protein (U) [Mass/Vol] Negative Negative [facility] Urine total bilirubin detect ion by test stripon 07-19-2020 Bilirubin Ql (U) Negative Negative [facility] Urine urobilinogen measureme nt by automated test strip (mass/volume)on 07-19-2020 Urobilinogen (U) [Mass/Vol] Normal mg/dL Normal [facility] Activated partial thrombopla stin time (aPTT) in platelet poor plasma by coagulation aon 06-15-2020 aPTT Coag (PPP) [Time] 30.9 s 23.0-35.0 [facility] Automated basophil %on 06-15 Basophils/100 WBC (Bld) 1.0 % [facility] Automated basophil counton 1 Basophils (Bld) [#/Vol] 0.1 10*3/uL 0.0-0.2 [facility] Automated blood lymphocyte c ount (number/volume)on 06-15-2020 Lymphocytes (Bld) [#/Vol] 1.1 10*3/uL 1.00-4.8 [facility] Automated blood lymphocyte c ount as percentage of total leukocyteson 06-15-2020 Lymphocytes/100 WBC (Bld) 8.1 % [facility] Automated blood monocyte cou nton 06-15-2020 Monocytes (Bld) [#/Vol] 1.7 10*3/uL 0.0-0.8 [facility] Automated blood platelet cou nt (count/volume)on 06-15-2020 Platelets (Bld) [#/Vol] 170 10*3/uL 150-450 [facility] Automated blood platelet jose antonio n volume measurementon 06-15-2020 Platelet mean volume (Bld) [Entitic vol] 9.5 fL 6.3-10.7 [facility] Automated eosinophil %on Eosinophils/100 WBC (Bld) 0.1 % [facility] Automated eosinophil counton 06-15-2020 Eosinophils (Bld) [#/Vol] 0.0 10*3/uL 0.0-0.45 [facility] Automated erythrocyte distri bution width ratioon 06-15-2020 Erythrocyte distribution width (RBC) [Ratio] 26.0 % 11.9-15.3 [facility] Automated erythrocyte mean c orpuscular hemoglobin (mass per erythrocyte)on 06-15-2020 MCH (RBC) [Entitic mass] 23.8 pg 24.7-34.3 [facility] Automated erythrocyte mean c orpuscular hemoglobin concentration measurement (mass/volon 06-15-2020 MCHC (RBC) [Mass/Vol] 30.8 g/dL 32.0-35.0 [place] Automated erythrocyte mean c orpuscular volumeon 06-15-2020 MCV (RBC) [Entitic vol] 77.4 fL 80-100 [facility] Automated monocyte %on 06-15 Monocytes/100 WBC (Bld) 12.7 % [facility] Automated neutrophil %on Neutrophils/100 WBC (Bld) 78.1 % [facility] Blood anisocytosis detection on 06-15-2020 Anisocytosis Ql (Bld) Moderate [place] Blood erythrocytes automated count (number/volume)on 06-15-2020 RBC (Bld) [#/Vol] 4.75 10*6/uL 3.60-5.00 [facility] Blood hemoglobin measurement (mass/volume)on 06-15-2020 Hemoglobin (Bld) [Mass/Vol] 11.3 g/dL 11.8-15.4 [facility] Blood leukocytes automated c ount (number/volume)on 06-15-2020 WBC (Bld) [#/Vol] 13.3 10*3/uL 4.5-11.0 [facility] Blood neutrophil count by au tomated method (number/volume)on 06-15-2020 Neutrophils (Bld) [#/Vol] 10.4 10*3/uL 1.8-7.7 [facility] Body fluid albumin measureme nt (mass/volume)on 06-15-2020 Albumin (Body fld) [Mass/Vol] 3.0 g/dL 3.2-5.5 [facility] COVID-19 Detected/Not Detect edon 06-15-2020 COVID-19 Detected/Not Detected Not detected Not Detecte [facility] Comment on above: This is a duplicate test result based off of the RP2.1 COVID (EUA) test performed within the Microbiology department. [facility] 06-15-2020 Natriuretic peptide B (Bld) [Mass/Vol] 2832.0 pg/mL 5-100 [facility] Creatine kinase [Enzymatic a ctivity/volume] in Serum or Plasmaon 06-15-2020 CK [Catalytic activity/Vol] 125 U/L 22-269 [facility] Estimated glomerular filtrat ion rate (GFR) non- Americanon 06-15-2020 GFR/1.73 sq M predicted among non-blacks MDRD (S/P/Bld) [Vol rate/Area] 53 mL/min/{1.73_m2} [facility] Hematocrit [Volume Fraction] of Blood by Automated counton 06-15-2020 Hematocrit (Bld) [Volume fraction] 36.8 % 34.0-46.4 [facility] Hematologyon 06-15-2020 Platelets (Bld) [#/Vol] Normal Normal [facility] PT Coag (PPP) [Time] 51.7 s 9.0-12.9 [facility] Otheron 06-15-2020 Respiratory Panel (PCR) [facility] Crenated Cell Slight [facility] GFR/1.73 sq M.predicted MDRD (S/P/Bld) [Vol rate/Area] mL/min/{1.73_m2} [facility] Comment on above: GFR estimated refere nce range: According to KDOQI guidelines, <60 ml/min/1.73m2 is sufficient to diagnose a patient with chronic kidney disease. Microcytosis Moderate [facility] Nucleated RBC/100 WBC (Bld) [Ratio] 0.0 % 0-0.5 [facility] Creatinine Clearance (Chem 60.88 [facility] Platelet Morphology Comment Normal Normal [facility] Poikilocytosis Slight [facility] Schistocytes Slight [facility] Ovalocyte detectionon 2019 Ovalocytes LM Ql [facility]Bld) [facility] Platelet poor plasma interna tional normalized ratio (INR) by coagulation assay (relaton 06-15-2020 INR Coag (PPP) [Relative time] 4.6 {INR} [facility] Comment on above: INR Therapeutic Rang [...] Plasmaon 06-15-2020 Protein [Mass/Vol] 5.9 g/dL 6.1-7.9 [facility] RBC morphologyon 06-15-2020 RBC morphology finding Nom (Bld) N/A [facility] Serum globulin measurement b y calculation (mass/volume)on 06-15-2020 Globulin (S) [Mass/Vol] 2.9 g/dL [facility] Serum or plasma alanine hernandez otransferase measurement without P-5'-P (enzymatic activion 06-15-2020 ALT No additional P-5'-P [Catalytic activity/Vol] 14 U/L 10-60 [facility] Serum or plasma albumin/glob ulin mass ratioon 06-15-2020 Albumin/Globulin [Mass ratio] 1.0 {ratio} [facility] Serum or plasma alkaline rosanna sphatase measurement (enzymatic activity/volume)on 06-15-2020 ALP [Catalytic activity/Vol] 150 U/L 32-92 [facility] Serum or plasma aspartate am inotransferase measurement (enzymatic activity/volume)on 06-15-2020 AST [Catalytic activity/Vol] 28 U/L 10 [facility] Serum or plasma calcium jackie urement (mass/volume)on 06-15-2020 Calcium [Mass/Vol] 8.6 mg/dL 8.2-10.2 [facility] Serum or plasma cardiac trop onin I measurement (mass/volume)on 06-15-2020 Troponin I.cardiac [Mass/Vol] 0.03 ng/mL 0-0.02 [facility] Comment on above: ELLA RI Cut off value > or equal to 0.03 ng/mL in conjunction with clinical conditions of myocardial infarction.([email or web address]) Serum or plasma chloride jose antonio surement (moles/volume)on 06-15-2020 Chloride [Moles/Vol] 109 mmol/L 95-114 [facility] Serum or plasma creatine kin ase MB (CKMB)/total creatine kinase (CK) ratio by calculaon 06-15-2020 CK.MB Calc [Catalytic fraction] 1.5 0.00-2.50 [facility] Serum or plasma creatine kin ase MB measurement (mass/volume)on 06-15-2020 CK.MB [Mass/Vol] 1.9 ng/mL 0.6-6.3 [facility] Serum or plasma creatinine m easurement with calculation of estimated glomerular filtron 06-15-2020 Creatinine [Mass/Vol] 1.09 mg/dL 0.44-1.03 [place] Serum or plasma glucose jackie urement (mass/volume)on 06-15-2020 Glucose [Mass/Vol] 139 mg/dL 70-100 [facility] Comment on above: ADA recommended refe rence rangeRandom Glucose Reference Range is dependent on time and content of last meal. Glucose of more than 200 mg/dL in a nonstressed, ambulatory subject supports the diagnosis of Diabetes Mellitus. Serum or plasma potassium me asurement (moles/volume)on 06-15-2020 Potassium [Moles/Vol] 4.6 mmol/L 3.5-5.1 [place] Serum or plasma sodium measu rement (moles/volume)on 06-15-2020 Sodium [Moles/Vol] 142 mmol/L 136-146 [facility] Serum or plasma total biliru bin measurement (mass/volume)on 06-15-2020 Bilirubin [Mass/Vol] 0.7 mg/dL 0.3-1.2 [facility] Serum or plasma total carbon dioxide measurement (moles/volume)on 06-15-2020 CO2 [Moles/Vol] 23.7 mmol/L 22.0-30.0 [facility] Serum or plasma urea nitroge n measurement (mass/volume)on 06-15-2020 Urea nitrogen [Mass/Vol] 6 mg/dL 05-22 [facility] Estimated glomerular filtrat ion rate (GFR) non- Americanon 06-07-2020 GFR/1.73 sq M predicted among non-blacks MDRD (S/P/Bld) [Vol rate/Area] mL/min/{1.73_m2} [facility] Otheron 06-07-2020 GFR/1.73 sq M.predicted MDRD (S/P/Bld) [Vol rate/Area] mL/min/{1.73_m2} [facility] Comment on above: GFR estimated refere nce range: According to KDOQI guidelines, <60 ml/min/1.73m2 is sufficient to diagnose a patient with chronic kidney disease. Pharmacy Creatinine Clearance (Chem 75.20 [facility] Serum or plasma calcium jackie urement (mass/volume)on 06-07-2020 Calcium [Mass/Vol] 8.2 mg/dL 8.2-10.2 [facility] Serum or plasma chloride jose antonio surement (moles/volume)on 06-07-2020 Chloride [Moles/Vol] 110 mmol/L 95-114 [facility] Serum or plasma creatinine m easurement with calculation of estimated glomerular filtron 06-07-2020 Creatinine [Mass/Vol] 0.90 mg/dL 0.44-1.03 [place] Serum or plasma glucose jackie urement (mass/volume)on 06-07-2020 Glucose [Mass/Vol] 83 mg/dL 70-100 [facility] Comment on above: ADA recommended refe rence rangeRandom Glucose Reference Range is dependent on time and content of last meal. Glucose of more than 200 mg/dL in a nonstressed, ambulatory subject supports the diagnosis of Diabetes Mellitus. Serum or plasma potassium me asurement (moles/volume)on 06-07-2020 Potassium [Moles/Vol] 4.4 mmol/L 3.5-5.1 [place] Serum or plasma sodium measu rement (moles/volume)on 06-07-2020 Sodium [Moles/Vol] 138 mmol/L 136-146 [facility] Serum or plasma total carbon dioxide measurement (moles/volume)on 06-07-2020 CO2 [Moles/Vol] 19.1 mmol/L 22.0-30.0 [facility] Serum or plasma urea nitroge n measurement (mass/volume)on 06-07-2020 Urea nitrogen [Mass/Vol] 5 mg/dL 9-23 [facility] Automated basophil %on 06-06 Basophils/100 WBC (Bld) 0.9 % [facility] Automated basophil counton 1 Basophils (Bld) [#/Vol] 0.1 10*3/uL 0.0-0.2 [facility] Automated blood lymphocyte c ount (number/volume)on 06-06-2020 Lymphocytes (Bld) [#/Vol] 1.8 10*3/uL 1.00-4.8 [facility] Automated blood lymphocyte c ount as percentage of total leukocyteson 06-06-2020 Lymphocytes/100 WBC (Bld) 25.4 % [facility] Automated blood monocyte cou nton 06-06-2020 Monocytes (Bld) [#/Vol] 0.8 10*3/uL 0.0-0.8 [facility] Automated blood platelet cou nt (count/volume)on 06-06-2020 Platelets (Bld) [#/Vol] 130 10*3/uL 150-450 [facility] Automated blood platelet jose antonio n volume measurementon 06-06-2020 Platelet mean volume (Bld) [Entitic vol] 9.7 fL 6.3-10.7 [facility] Automated eosinophil %on Eosinophils/100 WBC (Bld) 4.1 % [facility] Automated eosinophil counton 06-06-2020 Eosinophils (Bld) [#/Vol] 0.3 10*3/uL 0.0-0.45 [facility] Automated erythrocyte distri bution width ratioon 06-06-2020 Erythrocyte distribution width (RBC) [Ratio] 28.2 % 11.9-15.3 [facility] Automated erythrocyte mean c orpuscular hemoglobin (mass per erythrocyte)on 06-06-2020 MCH (RBC) [Entitic mass] 24.3 pg 24.7-34.3 [facility] Automated erythrocyte mean c orpuscular hemoglobin concentration measurement (mass/volon 06-06-2020 MCHC (RBC) [Mass/Vol] 29.8 g/dL 32.0-35.0 [place] Automated erythrocyte mean c orpuscular volumeon 06-06-2020 MCV (RBC) [Entitic vol] 81.5 fL 80-100 [facility] Automated monocyte %on 06-06 Monocytes/100 WBC (Bld) 10.6 % [facility] Automated neutrophil %on Neutrophils/100 WBC (Bld) 59.0 % [facility] Blood anisocytosis detection on 06-06-2020 Anisocytosis Ql (Bld) Marked [place] Blood erythrocytes automated count (number/volume)on 06-06-2020 RBC (Bld) [#/Vol] 4.81 10*6/uL 3.60-5.00 [facility] Blood hemoglobin measurement (mass/volume)on 06-06-2020 Hemoglobin (Bld) [Mass/Vol] 11.7 g/dL 11.8-15.4 [facility] Blood leukocytes automated c ount (number/volume)on 06-06-2020 WBC (Bld) [#/Vol] 7.1 10*3/uL 3.8-11.6 [facility] Blood neutrophil count by au tomated method (number/volume)on 06-06-2020 Neutrophils (Bld) [#/Vol] 4.2 10*3/uL 1.8-7.7 [facility] Blood polychromasia detectio n by light microscopyon 06-06-2020 Polychromasia LM Ql (Bld) Slight [facility] Creatine kinase [Enzymatic a ctivity/volume] in Serum or Plasmaon 06-06-2020 CK [Catalytic activity/Vol] 141 U/L 22-269 [facility] Ferritin [Mass/volume] in Se rum or Plasmaon 06-06-2020 Ferritin [Mass/Vol] 27.5 ng/mL 11-306.8 [facility] Hematocrit [Volume Fraction] of Blood by Automated counton 06-06-2020 Hematocrit (Bld) [Volume fraction] 39.2 % 34.0-46.4 [facility] Hematologyon 06-06-2020 Platelets (Bld) [#/Vol] Decreased Normal [facility] Hypochromia detectionon 10 Hypochromia Ql (Bld) Moderate [facility] Otheron 06-06-2020 Absolute Reticulocyte Count 0.131 10*6/uL 0.024-0.08 4 [facility] Microcytosis Slight [facility] Nucleated RBC/100 WBC (Bld) [Ratio] 0.1 % 0-0.5 [facility] Percent Reticulocyte Count 2.7 % 0.5-1.5 [facility] Platelet Morphology Comment Normal Normal [facility] Poikilocytosis Slight [facility] Schistocytes Rare [facility] Ovalocyte detectionon 2019 Ovalocytes LM Ql (Bld) Slight [facility] RBC morphologyon 06-06-2020 RBC morphology finding Nom (Bld) N/A [facility] Serum or plasma cardiac trop onin I measurement (mass/volume)on 06-06-2020 Troponin I.cardiac [Mass/Vol] 0.08 ng/mL 0-0.02 [facility] Comment on above: ELLA RI Cut off value > or equal to 0.03 ng/mL in conjunction with clinical conditions of myocardial infarction.([email or web address].org/[email or web address]) Serum or plasma creatine kin ase MB (CKMB)/total creatine kinase (CK) ratio by calculaon 06-06-2020 CK.MB Calc [Catalytic fraction] 4.1 0.00-2.50 [facility] Serum or plasma creatine kin ase MB measurement (mass/volume)on 06-06-2020 CK.MB [Mass/Vol] 5.8 ng/mL 0.6-6.3 [facility] Target cellson 06-06-2020 Target cells LM Ql (Bld) Slight [facility] Teardrop cell detectionon Dacrocytes LM Ql (Bld) Rare Fi [facility] COVID-19 Positive/Negativeon 06-05-2020 COVID-19 Positive/Negative Negative Negative [facility] Comment on above: Testing for SARS-CoV -2 by RT-PCRThis test was developed and its performance characteristics determined by [employer] and validated at the [facility]. This test has not been [...] Otheron 06-05-2020 Coronavirus 2019 PCR Interp N/A [facility] Urine lactic acid measuremen ton 06-05-2020 Lactate (U) [Moles/Vol] 1.1 mmol/L [facility] Activated partial thrombopla stin time (aPTT) in platelet poor plasma by coagulation aon 06-04-2020 aPTT Coag (PPP) [Time] 28.9 s 23.0-35.[address] [facility] 06-04-2020 Natriuretic peptide B (Bld) [Mass/Vol] 1836.0 pg/mL 5-100 [facility] Hematologyon 06-04-2020 PT Coag (PPP) [Time] 15.7 s 9.0-12.9 [facility] Metabolic Panelon 06-04-2020 Magnesium [Mass/Vol] 1.7 mg/dL 1.6-2.6 [facility] Otheron 06-04-2020 Crenated Cell Moderate [facility] Platelet poor plasma interna tional normalized ratio (INR) by coagulation assay (relaton 06-04-2020 INR Coag (PPP) [Relative time] 1.4 {INR} [facility] Comment on above: INR Therapeutic Rang [...] gap molar conc 14 mmol/L Normal 10-20 [facility] Comment on above: Performed By: #### 1 [id number] #### [facility] [address] [place] [address] Calcium mass conc 8.8 mg/dL Normal 8.6-10.[address] [facility] Comment on above: Performed By: #### 1 [id number] #### [facility] [address] [place] [address] Chloride molar conc 101 mmol/L Normal 98-107 [facility] Comment on above: Performed By: #### 1 [id number] #### [facility] [address] [place] [address] Creatinine mass conc 0.96 mg/dL Normal 0.50-1.[address] [facility] Comment on above: Performed By: #### 1 [id number] #### [facility] [address] [place] [address] GFR/1.73 sq M.predicted MDRD vol rate/area mL/min/{1.73_m2} Normal [facility] Comment on above: Result Comment: Inte rpretation for Chronic Kidney Disease: Stages 1&2 >60 Healthy or potential kidney damage. Mild decrease of GFR. Stage 3 30-59 Moderate decrease of GFR. Stage 4 15-29 Severe decrease of GFR. Stage 5 <15 Kidney failure or on dialysis. Performed By: #### 1 [id number] #### [facility] [address] [place] [address] Glucose mass conc 81 mg/dL Normal 70-100 [facility] Comment on above: Performed By: #### 1 [id number] #### [facility] [address] [place] [address] HCO3 molar conc (Bld) 25 mmol/L Normal 21-32 [facility] Comment on above: Performed By: #### 1 [id number] #### [facility] [address] [place] [address] Potassium molar conc 4.4 mmol/L Normal 3.5-5.1 [facility] Comment on above: Performed By: #### 1 [id number] #### [facility] [address] [place] [address] Sodium molar conc 136 mmol/L Normal 136-145 [facility] Comment on above: Performed By: #### 1 [id number] #### [facility] [address] [place] [address] Urea nitrogen mass conc 11 mg/dL Normal 6-23 [facility] Comment on above: Performed By: #### 1 [id number] #### [facility] [address] [place] [address] Urea nitrogen/Creatinine mass ratio 11 mg/mg Normal 5-25 [facility] Comment on above: Performed By: #### 1 [id number] #### [facility] [address] [place] [address] Prothrombin Timeon 9 INR Coag RelTime (PPP) 1.06 {INR} Normal 0.90-1.10 [facility] Comment on above: Performed By: #### 1 [id number] #### [facility] [address] [place] [address] Prothrombin time (PT) Coag time (PPP) 12.0 s Normal 9.7-12.7 [facility] Comment on above: Result Comment: MEGAN RUBIN NOTE NEW REFERENCE RANGE EFFECTIVE 2018 Performed By: #### 1 [id number] #### [facility] [address] [place] [address] Basic Metabolic Panelon 02-0 Anion gap molar conc 8 mmol/L Low 10-20 [facility] Comment on above: Performed By: #### 1 [id number] #### [facility] [address] [place] [address] Calcium mass conc 9.0 mg/dL Normal 8.6-10.[address] [facility] Comment on above: Performed By: #### 1 [id number] #### [facility] [address] [place] [address] Chloride molar conc 100 mmol/L Normal 98-107 [facility] Comment on above: Performed By: #### 1 [id number] #### [facility] [address] [place] [address] Creatinine mass conc 1.05 mg/dL Normal 0.50-1.[address] [facility] Comment on above: Performed By: #### 1 [id number] #### [facility] [address] [place] [address] GFR/1.73 sq M.predicted MDRD vol rate/area 56 mL/min/{1.73_m2} Normal [facility] Comment on above: Result Comment: Inte rpretation for Chronic Kidney Disease: Stages 1&2 >60 Healthy or potential kidney damage. Mild decrease of GFR. Stage 3 30-59 Moderate decrease of GFR. Stage 4 15-29 Severe decrease of GFR. Stage 5 <15 Kidney failure or on dialysis. Performed By: #### 1 [id number] #### [facility] [address] [place] [address] Glucose mass conc 78 mg/dL Normal 70-100 [facility] Comment on above: Performed By: #### 1 [id number] #### [facility] [address] [place] [address] HCO3 molar conc (Bld) 31 mmol/L Normal 21-32 [facility] Comment on above: Performed By: #### 1 [id number] #### [facility] [address] [place] [address] Potassium molar conc 4.8 mmol/L Normal 3.5-5.1 [facility] Comment on above: Performed By: #### 1 [id number] #### [facility] [address] [place] [address] Sodium molar conc 134 mmol/L Low 136-145 [facility] Comment on above: Performed By: #### 1 [id number] #### [facility] [address] [place] [address] Urea nitrogen mass conc 16 mg/dL Normal 6-23 [facility] Comment on above: Performed By: #### 1 [id number] #### [facility] [address] [place] [address] Urea nitrogen/Creatinine mass ratio 15 mg/mg Normal 5-25 [facility] Comment on above: Performed By: #### 1 [id number] #### [facility] [address] [place] [address] Prothrombin Timeon 9 INR Coag RelTime (PPP) 1.87 {INR} High 0.90-1.10 [facility] Comment on above: Performed By: #### 1 [id number] #### [facility] [address] [place] [address] Prothrombin time (PT) Coag time (PPP) 21.4 s High 9.7-12.[address] [facility] Comment on above: Result Comment: PLEA SE NOTE NEW REFERENCE RANGE EFFECTIVE 2018 Performed By: #### 1 [id number] #### [facility] [address] [place] [address] Activated Clotting Time Low Rangeon 08-04-2018 Activated Clotting Time Low Range 192 sec Normal [facility] Comment on above: Result Comment: Norm al: 96-167 Secs(Unheparinized) Stent Implant Range: >300 Secs Sheath Removal: 150-170 Secs CRRT: 180-220 Secs (Continous Renal Replacement Therapy) Performed By: #### 1 [id number] #### [facility] [address] [place] [address] Activated Clotting Time Low Range 180 sec Normal [facility] Comment on above: Result Comment: Norm al: 96-167 Secs(Unheparinized) Stent Implant Range: >300 Secs Sheath Removal: 150-170 Secs CRRT: 180-220 Secs (Continous Renal Replacement Therapy) Performed By: #### 1 [id number] #### [facility] [address] [place] [address] Activated Clotting Time Low Range 121 sec Normal [facility] Comment on above: Result Comment: Norm al: 96-167 Secs(Unheparinized) Stent Implant Range: >300 Secs Sheath Removal: 150-170 Secs CRRT: 180-220 Secs (Continous Renal Replacement Therapy) Performed By: #### 1 [id number] #### [facility] [address] [place] [address] CBCon 08-04-2018 Erythrocyte distribution width Ratio (RBC) 15.8 % High 12.0-15.4 [facility] Comment on above: Performed By: #### 1 [id number] #### [facility] [address] [place] [address] Hematocrit Volume Fraction (Bld) 41.8 % Normal 36.5-46.6 [facility] Comment on above: Performed By: #### 1 [id number] #### [facility] [address] [place] [address] Hemoglobin mass conc (Bld) 13.0 g/dL Normal 11.8-15.3 [facility] Comment on above: Performed By: #### 1 [id number] #### [facility] [address] [place] [address] MCH Entitic mass (RBC) 25.8 pg Low 27.5-33.0 [facility] Comment on above: Performed By: #### 1 [id number] #### [facility] [address] [place] [address] MCHC mass conc (RBC) 31.1 g/dL Normal 30.1-35.0 [facility] Comment on above: Performed By: #### 1 [id number] #### [facility] [address] [place] [address] MCV Entitic volume (RBC) 83.1 fL Low 85.4-100.0 [facility] Comment on above: Performed By: #### 1 [id number] #### [facility] [address] [place] [address] NRBC Absolute 0.00 10*3/uL Normal [facility] Comment on above: Performed By: #### 1 [id number] #### [facility] [address] [place] [address] NRBC Automated 0.0 /100{WBCs} Normal [facility] Comment on above: Performed By: #### 1 [id number] #### [facility] [address] [place] [address] Platelet mean volume Entitic volume (Bld) 11.5 fL Normal 9.9-12.1 [facility] Comment on above: Performed By: #### 1 [id number] #### [facility] [address] [place] [address] Platelets #/vol (Bld) 233 10*3/uL Normal 155-404 [facility] Comment on above: Performed By: #### 1 [id number] #### [facility] [address] [place] [address] RBC #/vol (Bld) 5.03 10*6/uL Normal 3.85-5.10 [facility] Comment on above: Performed By: #### 1 [id number] #### [facility] [address] [place] [address] RDW SD 46.8 fL Normal 39.3-48.6 [facility] Comment on above: Performed By: #### 1 [id number] #### [facility] [address] [place] [address] WBC #/vol (Bld) 11.2 10*3/uL High 4.4-9.9 [facility] Comment on above: Performed By: #### 1 [id number] #### [facility] [address] [place] [address] Prothrombin Timeon 12-06-201 8 INR Coag RelTime (PPP) 1.18 {INR} High 0.90-1.10 [facility] Comment on above: Performed By: #### 1 [id number] #### [facility] [address] [place] [address] Prothrombin time (PT) Coag time (PPP) 13.4 s High 9.7-12.[address] [facility] Comment on above: Result Comment: Delt a check investigation completed per policy PLEASE NOTE NEW REFERENCE RANGE EFFECTIVE 2018 Performed By: #### 1 [id number] #### [facility] [address] [place] [address] Basic Metabolic Panelon 12-0 Anion gap molar conc 14 mmol/L Normal 10-[address] [facility] Comment on above: Performed By: #### 1 [id number] #### [facility] [address] [place] [address] Calcium mass conc 9.5 mg/dL Normal 8.6-10.[address] [facility] Comment on above: Performed By: #### 1 [id number] #### [facility] [address] [place] [address] Chloride molar conc 103 mmol/L Normal 98-[address] [facility] Comment on above: Performed By: #### 1 [id number] #### [facility] [address] [place] [address] Creatinine mass conc 0.94 mg/dL Normal 0.50-1.[address] [facility] Comment on above: Performed By: #### 1 [id number] #### [facility] [address] [place] [address]129 GFR/1.73 sq M.predicted MDRD vol rate/area mL/min/{1.73_m2} Normal [facility] Comment on above: Result Comment: Inte rpretation for Chronic Kidney Disease: Stages 1&2 >60 Healthy or potential kidney damage. Mild decrease of GFR. Stage 3 30-59 Moderate decrease of GFR. Stage 4 15-29 Severe decrease of GFR. Stage 5 <15 Kidney failure or on dialysis. Performed By: #### 1 [id number] #### [facility] [address] [place] [address]874 Glucose mass conc 81 mg/dL Normal 70-100 [facility] Comment on above: Performed By: #### 1 [id number] #### [facility] [address] [place] [address] HCO3 molar conc (Bld) 26 mmol/L Normal 21-32 [facility] Comment on above: Performed By: #### 1 [id number] #### [facility] [address] [place] [address] Potassium molar conc 3.8 mmol/L Normal 3.5-5.1 [facility] Comment on above: Performed By: #### 1 [id number] #### [facility] [address] [place] [address] Sodium molar conc 139 mmol/L Normal 136-145 [facility] Comment on above: Performed By: #### 1 [id number] #### [facility] [address] [place] [address] Urea nitrogen mass conc 10 mg/dL Normal 6-23 [facility] Comment on above: Performed By: #### 1 [id number] #### [facility] [address] [place] [address] Urea nitrogen/Creatinine mass ratio 11 mg/mg Normal 5-25 [facility] Comment on above: Performed By: #### 1 [id number] #### [facility] [address] [place] [address] CBCon 08-02-2018 Erythrocyte distribution width Ratio (RBC) 15.9 % High 12.0-15.4 [facility] Comment on above: Performed By: #### 1 [id number] #### [facility] [address] [place] [address] Hematocrit Volume Fraction (Bld) 47.6 % High 36.5-46.6 [facility] Comment on above: Performed By: #### 1 [id number] #### [facility] [address] [place] [address] Hemoglobin mass conc (Bld) 14.3 g/dL Normal 11.8-15.3 [facility] Comment on above: Performed By: #### 1 [id number] #### [facility] [address] [place] [address] MCH Entitic mass (RBC) 26.1 pg Low 27.5-33.0 [facility] Comment on above: Performed By: #### 1 [id number] #### [facility] [address] [place] [address] MCHC mass conc (RBC) 30.0 g/dL Low 30.1-35.0 [facility] Comment on above: Performed By: #### 1 [id number] #### [facility] [address] [place] [address] MCV Entitic volume (RBC) 86.9 fL Normal 85.4-100.0 [facility] Comment on above: Performed By: #### 1 [id number] #### [facility] [address] [place] [address] NRBC Absolute 0.00 10*3/uL Normal [facility] Comment on above: Performed By: #### 1 [id number] #### [facility] [address] [place] [address] NRBC Automated 0.0 /100{WBCs} Normal [facility] Comment on above: Performed By: #### 1 [id number] #### [facility] [address] [place] [address] Platelet mean volume Entitic volume (Bld) 13.7 fL High 9.9-12.1 [facility] Comment on above: Performed By: #### 1 [id number] #### [facility] [address] [place] [address] Platelets #/vol (Bld) 223 10*3/uL Normal 155-404 [facility] Comment on above: Performed By: #### 1 [id number] #### [facility] [address] [place] [address] RBC #/vol (Bld) 5.48 10*6/uL High 3.85-5.10 [facility] Comment on above: Performed By: #### 1 [id number] #### [facility] [address] [place] [address] RDW SD 50.1 fL High 39.3-48.6 [facility] Comment on above: Performed By: #### 1 [id number] #### [facility] [address] [place] [address] 11612 WBC #/vol (Bld) 12.6 10*3/uL High 4.4-9.9 [facility] Comment on above: Performed By: #### 1 [id number] #### [facility] [address] [place] [address] 82090 Prothrombin Timeon 8 INR Coag RelTime (PPP) 3.04 {INR} High 0.90-1.10 [facility] Comment on above: Performed By: #### 1 [id number] #### [facility] [address] [place] [address] 33298 Prothrombin time (PT) Coag time (PPP) 35.1 s High 9.7-12.7 [facility] Comment on above: Result Comment: MEGAN RUBIN NOTE NEW REFERENCE RANGE EFFECTIVE 2018 Performed By: #### 1 [id number] #### [facility] [address] [place] [address] 41121 Basic Metabolic Panelon 11-0 Anion gap molar conc 11 mmol/L Normal 10-20 [facility] Comment on above: Performed By: #### 1 [id number] #### [facility] [address] [place] [address] 40298 Calcium mass conc 9.0 mg/dL Normal 8.6-10.3 [facility] Comment on above: Performed By: #### 1 [id number] #### [facility] [address] [place] [address] 08168 Chloride molar conc 99 mmol/L Normal 98-107 [facility] Comment on above: Performed By: #### 1 [id number] #### [facility] [address] [place] [address] 08891 Creatinine mass conc 1.00 mg/dL Normal 0.50-1.05 [facility] Comment on above: Performed By: #### 1 [id number] #### [facility] [address] [place] [address] 71169 GFR/1.73 sq M.predicted MDRD vol rate/area 59 mL/min/{1.73_m2} Normal [facility] Comment on above: Result Comment: Inte rpretation for Chronic Kidney Disease: Stages 1&2 >60 Healthy or potential kidney damage. Mild decrease of GFR. Stage 3 30-59 Moderate decrease of GFR. Stage 4 15-29 Severe decrease of GFR. Stage 5 <15 Kidney failure or on dialysis. Performed By: #### 1 [id number] #### [facility] [address] [place] [address] Glucose mass conc 81 mg/dL Normal 70-[address] [facility] Comment on above: Performed By: #### 1 [id number] #### [facility] [address] [place] [address] HCO3 molar conc (Bld) 27 mmol/L Normal 21-[address] [facility] Comment on above: Performed By: #### 1 [id number] #### [facility] [address] [place] [address] Potassium molar conc 4.1 mmol/L Normal 3.5-5.[address] [facility] Comment on above: Performed By: #### 1 [id number] #### [facility] [address] [place] [address] Sodium molar conc 133 mmol/L Low 136-[address] [facility] Comment on above: Performed By: #### 1 [id number] #### [facility] [address] [place] [address] 37170 Urea nitrogen mass conc 14 mg/dL Normal 6-23 [facility] Comment on above: Performed By: #### 1 [id number] #### [facility] [address] [place] [address] Urea nitrogen/Creatinine mass ratio 14 mg/mg Normal 5-25 [facility] Comment on above: Performed By: #### 1 [id number] #### [facility] [address] [place] [address] Magnesiumon 07-01-2018 Magnesium mass conc 1.9 mg/dL Normal 1.6-2.[address] [facility] Comment on above: Performed By: #### 1 [id number] #### [facility] [address] [place] [address] Prothrombin Timeon 8 INR Coag RelTime (PPP) 3.10 {INR} High 0.90-1.10 [facility] Comment on above: Performed By: #### 1 [id number] #### [facility] [address] [place] [address] 45028 Prothrombin time (PT) Coag time (PPP) 35.8 s High 9.7-12.[address] [facility] Comment on above: Result Comment: MEGAN RUBIN NOTE NEW REFERENCE RANGE EFFECTIVE 2018 Performed By: #### 1 [id number] #### [facility] [address] [place] [address] 43597 Basic Metabolic Panelon 11-0 Anion gap molar conc 12 mmol/L Normal 10-[address] [facility] Comment on above: Performed By: #### 1 [id number] #### [facility] [address] [place] [address] 09152 Calcium mass conc 9.0 mg/dL Normal 8.6-10.[address] [facility] Comment on above: Performed By: #### 1 [id number] #### [facility] [address] [place] [address] 04586 Chloride molar conc 101 mmol/L Normal 98-[address] [facility] Comment on above: Performed By: #### 1 [id number] #### [facility] [address] [place] [address] 66774 Creatinine mass conc 1.04 mg/dL Normal 0.50-1.[address] [facility] Comment on above: Performed By: #### 1 [id number] #### [facility] [address] [place] [address] 22357 GFR/1.73 sq M.predicted MDRD vol rate/area 56 mL/min/{1.73_m2} Normal [facility] Comment on above: Result Comment: Inte rpretation for Chronic Kidney Disease: Stages 1&2 >60 Healthy or potential kidney damage. Mild decrease of GFR. Stage 3 30-59 Moderate decrease of GFR. Stage 4 15-29 Severe decrease of GFR. Stage 5 <15 Kidney failure or on dialysis. Performed By: #### 1 [id number] #### [facility] [address] [place] [address] Glucose mass conc 89 mg/dL Normal 70-100 [facility] Comment on above: Performed By: #### 1 [id number] #### [facility] [address] [place] [address] HCO3 molar conc (Bld) 25 mmol/L Normal 21-32 [facility] Comment on above: Performed By: #### 1 [id number] #### [facility] [address] [place] [address] Potassium molar conc 4.3 mmol/L Normal 3.5-5.1 [facility] Comment on above: Performed By: #### 1 [id number] #### [facility] [address] [place] [address] 16169 Sodium molar conc 134 mmol/L Low 136-145 [facility] Comment on above: Performed By: #### 1 786187 #### [facility] [address] [place] [address] 43024 Urea nitrogen mass conc 12 mg/dL Normal 6-23 [facility] Comment on above: Performed By: #### 1 [id number] #### [facility] [address] [place] [address] 78771 Urea nitrogen/Creatinine mass ratio 12 mg/mg Normal 5-25 [facility] Comment on above: Performed By: #### 1 [id number] #### [facility] [address] [place] [address] 33312 Magnesiumon 06-30-2018 Magnesium mass conc 2.0 mg/dL Normal 1.6-2.4 [facility] Comment on above: Performed By: #### 1 [id number] #### [facility] [address] [place] [address] 14454 Prothrombin Timeon 8 INR Coag RelTime (PPP) 2.93 {INR} High 0.90-1.10 [facility] Comment on above: Performed By: #### 2 [id number] #### [facility] [address] [place] [address] Prothrombin time (PT) Coag time (PPP) 33.9 s High 9.7-12.7 [facility] Comment on above: Result Comment: MEGAN RUBIN NOTE NEW REFERENCE RANGE EFFECTIVE 2018 Performed By: #### 2 [id number] #### [facility] [address] [place] [address] 96488 Basic Metabolic Panelon 10-3 Anion gap molar conc 8 mmol/L Low 10-20 [facility] Comment on above: Performed By: #### 2 596016 #### [facility] [address] [place] [address] Calcium mass conc 8.7 mg/dL Normal 8.6-10.3 [facility] Comment on above: Performed By: #### 2 215131 #### [facility] [address] [place] [address] 97233 Chloride molar conc 103 mmol/L Normal 98-107 [facility] Comment on above: Performed By: #### 2 [id number] #### [facility] [address] [place] [address] Creatinine mass conc 0.89 mg/dL Normal 0.50-1.[address] [facility] Comment on above: Performed By: #### 2 [id number] #### [facility] [address] [place] [address] 82589 GFR/1.73 sq M.predicted MDRD vol rate/area mL/min/{1.73_m2} Normal [facility] Comment on above: Result Comment: Inte rpretation for Chronic Kidney Disease: Stages 1&2 >60 Healthy or potential kidney damage. Mild decrease of GFR. Stage 3 30-59 Moderate decrease of GFR. Stage 4 15-29 Severe decrease of GFR. Stage 5 <15 Kidney failure or on dialysis. Performed By: #### 2 [id number] #### [facility] [address] [place] [address] Glucose mass conc 125 mg/dL High 70-100 [facility] Comment on above: Performed By: #### 2 [id number] #### [facility] [address] [place] [address] HCO3 molar conc (Bld) 26 mmol/L Normal 21-32 [facility] Comment on above: Performed By: #### 2 [id number] #### [facility] [address] [place] [address] Potassium molar conc 4.0 mmol/L Normal 3.5-5.1 [facility] Comment on above: Performed By: #### 2 811223 #### [facility] [address] [place] [address] Sodium molar conc 133 mmol/L Low 136-145 [facility] Comment on above: Performed By: #### 2 [id number] #### [facility] [address] [place] [address] Urea nitrogen mass conc 10 mg/dL Normal 6-23 [facility] Comment on above: Performed By: #### 2 [id number] #### [facility] [address] [place] [address] Urea nitrogen/Creatinine mass ratio 11 mg/mg Normal 5-25 [facility] Comment on above: Performed By: #### 2 [id number] #### [facility] [address] [place] [address] Magnesiumon 06-29-2018 Magnesium mass conc 1.8 mg/dL Normal 1.6-2.4 [facility] Comment on above: Performed By: #### 2 [id number] #### [facility] [address] [place] [address] Prothrombin Timeon 8 INR Coag RelTime (PPP) 3.23 {INR} High 0.90-1.10 [facility] Comment on above: Performed By: #### 2 [id number] #### [facility] [address] [place] [address] Prothrombin time (PT) Coag time (PPP) 37.4 s High 9.7-12.7 [facility] Comment on above: Result Comment: MEGAN RUBIN NOTE NEW REFERENCE RANGE EFFECTIVE 2018 Performed By: #### 2 [id number] #### [facility] [address] [place] [address] Basic Metabolic Panelon 06-01 Anion gap molar conc 11 mmol/L Normal 10-20 [facility] Comment on above: Performed By: #### 2 [id number] #### [facility] [address] [place] [address] Calcium mass conc 8.5 mg/dL Low 8.6-10.3 [facility] Comment on above: Performed By: #### 2 191602 #### [facility] [address] [place] [address] Chloride molar conc 104 mmol/L Normal 98-107 [facility] Comment on above: Performed By: #### 2 378004 #### [facility] [address] [place] [address] Creatinine mass conc 0.90 mg/dL Normal 0.50-1.05 [facility] Comment on above: Performed By: #### 2 819637 #### [facility] [address] [place] [address] GFR/1.73 sq M.predicted MDRD vol rate/area mL/min/{1.73_m2} Normal [facility] Comment on above: Result Comment: Inte rpretation for Chronic Kidney Disease: Stages 1&2 >60 Healthy or potential kidney damage. Mild decrease of GFR. Stage 3 30-59 Moderate decrease of GFR. Stage 4 15-29 Severe decrease of GFR. Stage 5 <15 Kidney failure or on dialysis. Performed By: #### 2 [id number] #### [facility] [address] [place] [address] 06314 Glucose mass conc 99 mg/dL Normal 70-100 [facility] Comment on above: Performed By: #### 2 [id number] #### [facility] [address] [place] [address] HCO3 molar conc (Bld) 23 mmol/L Normal 21-32 [facility] Comment on above: Performed By: #### 2 [id number] #### [facility] [address] [place] [address] Potassium molar conc 4.3 mmol/L Normal 3.5-5.1 [facility] Comment on above: Performed By: #### 2 863206 #### [facility] [address] [place] [address] Sodium molar conc 134 mmol/L Low 136-145 [facility] Comment on above: Performed By: #### 2 500994 #### [facility] [address] [place] [address] Urea nitrogen mass conc 15 mg/dL Normal 6-23 [facility] Comment on above: Performed By: #### 2 [id number] #### [facility] [address] [place] [address] Urea nitrogen/Creatinine mass ratio 17 mg/mg Normal 5-25 [facility] Comment on above: Performed By: #### 2 [id number] #### [facility] [address] [place] [address] Magnesiumon 06-28-2018 Magnesium mass conc 1.9 mg/dL Normal 1.6-2.4 [facility] Comment on above: Performed By: #### 2 [id number] #### [facility] [address] [place] [address] Prothrombin Timeon 8 INR Coag RelTime (PPP) 4.27 {INR} High 0.90-1.10 [facility] Comment on above: Performed By: #### 2 [id number] #### [facility] [address] [place] [address] Prothrombin time (PT) Coag time (PPP) 49.7 s High 9.7-12.7 [facility] Comment on above: Result Comment: PLEA SE NOTE NEW REFERENCE RANGE EFFECTIVE 2018 Performed By: #### 2 [id number] #### [facility] [address] [place] [address] Basic Metabolic Panelon 05-31 Anion gap molar conc 12 mmol/L Normal 10-20 [facility] Comment on above: Performed By: #### 2 [id number] #### [facility] [address] [place] [address] Calcium mass conc 8.4 mg/dL Low 8.6-10.3 [facility] Comment on above: Performed By: #### 2 024655 #### [facility] [address] [place] [address] Chloride molar conc 109 mmol/L High 98-107 [facility] Comment on above: Performed By: #### 2 162266 #### [facility] [address] [place] [address] Creatinine mass conc 1.04 mg/dL Normal 0.50-1.05 [facility] Comment on above: Performed By: #### 2 385178 #### [facility] [address] [place] [address] GFR/1.73 sq M.predicted MDRD vol rate/area 56 mL/min/{1.73_m2} Normal [facility] Comment on above: Result Comment: Inte rpretation for Chronic Kidney Disease: Stages 1&2 >60 Healthy or potential kidney damage. Mild decrease of GFR. Stage 3 30-59 Moderate decrease of GFR. Stage 4 15-29 Severe decrease of GFR. Stage 5 <15 Kidney failure or on dialysis. Performed By: #### 2 [id number] #### [facility] [address] [place] [address] Glucose mass conc 84 mg/dL Normal 70-100 [facility] Comment on above: Performed By: #### 2 486689 #### [facility] [address] [place] [address] HCO3 molar conc (Bld) 21 mmol/L Normal 21-32 [facility] Comment on above: Performed By: #### 2 666655 #### [facility] [address] [place] [address] Potassium molar conc 4.5 mmol/L Normal 3.5-5.1 [facility] Comment on above: Performed By: #### 2 433030 #### [facility] [address] [place] [address] Sodium molar conc 138 mmol/L Normal 136-145 [facility] Comment on above: Performed By: #### 2 804504 #### [facility] [address] [place] [address] Urea nitrogen mass conc 16 mg/dL Normal 6-23 [facility] Comment on above: Performed By: #### 2 996101 #### [facility] [address] [place] [address] Urea nitrogen/Creatinine mass ratio 15 mg/mg Normal 5-25 [facility] Comment on above: Performed By: #### 2 619155 #### [facility] [address] [place] [address] Anion gap molar conc 10 mmol/L Normal 10-20 [facility] Comment on above: Performed By: #### 2 [id number] #### [facility] [address] [place] [address] 86120 Calcium mass conc 8.6 mg/dL Normal 8.6-10.3 [facility] Comment on above: Performed By: #### 2 [id number] #### [facility] [address] [place] [address] 84809 Chloride molar conc 107 mmol/L Normal 98-[address] [facility] Comment on above: Performed By: #### 2 503792 #### [facility] [address] [place] [address] 23727 Creatinine mass conc 1.05 mg/dL Normal 0.50-1.[address] [facility] Comment on above: Performed By: #### 2 [id number] #### [facility] [address] [place] [address] 62808 GFR/1.73 sq M.predicted MDRD vol rate/area 56 mL/min/{1.73_m2} Normal [facility] Comment on above: Result Comment: Inte rpretation for Chronic Kidney Disease: Stages 1&2 >60 Healthy or potential kidney damage. Mild decrease of GFR. Stage 3 30-59 Moderate decrease of GFR. Stage 4 15-29 Severe decrease of GFR. Stage 5 <15 Kidney failure or on dialysis. Performed By: #### 2 [id number] #### [facility] [address] [place] [address] 16183 Glucose mass conc 95 mg/dL Normal 70-[address] [facility] Comment on above: Performed By: #### 2 [id number] #### [facility] [address] [place] [address] 25348 HCO3 molar conc (Bld) 26 mmol/L Normal 21-32 [facility] Comment on above: Performed By: #### 2 942896 #### [facility] [address] [place] [address] Potassium molar conc 4.3 mmol/L Normal 3.5-5.1 [facility] Comment on above: Performed By: #### 2 874881 #### [facility] [address] [place] [address] Sodium molar conc 139 mmol/L Normal 136-145 [facility] Comment on above: Performed By: #### 2 533109 #### [facility] [address] [place] [address] Urea nitrogen mass conc 17 mg/dL Normal 6-23 [facility] Comment on above: Performed By: #### 2 245239 #### [facility] [address] [place] [address] Urea nitrogen/Creatinine mass ratio 16 mg/mg Normal 5-25 [facility] Comment on above: Performed By: #### 2 118130 #### [facility] [address] [place] [address] CBC With Differentialon 05-31 Basophils #/vol (Bld) 0.11 10*3/uL High 0.01-0.07 [facility] Comment on above: Performed By: #### 2 [id number] #### [facility] [address] [place] [address] Basophils/100 WBC (Bld) 1.2 % Normal 0.1-1.2 [facility] Comment on above: Performed By: #### 2 [id number] #### [facility] [address] [place] [address] Eosinophils #/vol (Bld) 0.45 10*3/uL Normal 0.04-0.50 [facility] Comment on above: Performed By: #### 2 259336 #### [facility] [address] [place] [address] Eosinophils/100 WBC (Bld) 4.7 % Normal 0.0-8.1 [facility] Comment on above: Performed By: #### 2 318130 #### [facility] [address] [place] [address] Erythrocyte distribution width Ratio (RBC) 15.7 % High 12.0-15.4 [facility] Comment on above: Performed By: #### 2 896413 #### [facility] [address] [place] [address] Hematocrit Volume Fraction (Bld) 38.5 % Normal 36.5-46.6 [facility] Comment on above: Performed By: #### 2 876648 #### [facility] [address] [place] [address] Hemoglobin mass conc (Bld) 11.9 g/dL Normal 11.8-15.3 [facility] Comment on above: Performed By: #### 2 [id number] #### [facility] [address] [place] [address] Imm Grans Absolute 0.09 10*3/uL Normal 0.00-0.21 [facility] Comment on above: Performed By: #### 2 956585 #### [facility] [address] [place] [address] Immature granulocytes #/vol (Bld) 0.9 % Normal [facility] Comment on above: Performed By: #### 2 291090 #### [facility] [address] [place] [address] Lymphocytes #/vol (Bld) 3.15 10*3/uL High 0.40-2.84 [facility] Comment on above: Performed By: #### 2 669139 #### [facility] [address] [place] [address] 11858 Lymphocytes/100 WBC (Bld) 33.2 % Normal 15.7-50.5 [facility] Comment on above: Performed By: #### 2 918362 #### [facility] [address] [place] [address] MCH Entitic mass (RBC) 26.1 pg Low 27.5-33.0 [facility] Comment on above: Performed By: #### 2 [id number] #### [facility] [address] [place] [address] MCHC mass conc (RBC) 30.9 g/dL Normal 30.1-35.0 [facility] Comment on above: Performed By: #### 2 192897 #### [facility] [address] [place] [address] MCV Entitic volume (RBC) 84.4 fL Low 85.4-100.0 [facility] Comment on above: Performed By: #### 2 [id number] #### [facility] [address] [place] [address] Monocytes #/vol (Bld) 0.91 10*3/uL High 0.25-0.83 [facility] Comment on above: Performed By: #### 2 [id number] #### [facility] [address] [place] [address] Monocytes/100 WBC (Bld) 9.6 % Normal 4.8-12.7 [facility] Comment on above: Performed By: #### 2 [id number] #### [facility] [address] [place] [address] Neutrophils Absolute 4.78 10*3/uL Normal 1.95-6.85 [facility] Comment on above: Performed By: #### 2 [id number] #### [facility] [address] [place] [address] Neutrophils/100 WBC (Bld) 50.4 % Normal 36.8-73.2 [facility] Comment on above: Performed By: #### 2 [id number] #### [facility] [address] [place] [address] NRBC Absolute 0.00 10*3/uL Normal [facility] Comment on above: Performed By: #### 2 985136 #### [facility] [address] [place] [address] NRBC Automated 0.0 /100{WBCs} Normal [facility] Comment on above: Performed By: #### 2 [id number] #### [facility] [address] [place] [address] Platelet mean volume Entitic volume (Bld) 11.1 fL Normal 9.9-12.1 [facility] Comment on above: Performed By: #### 2 [id number] #### [facility] [address] [place] [address] Platelets #/vol (Bld) 215 10*3/uL Normal 155-404 [facility] Comment on above: Performed By: #### 2 [id number] #### [facility] [address] [place] [address] RBC #/vol (Bld) 4.56 10*6/uL Normal 3.85-5.10 [facility] Comment on above: Performed By: #### 2 124579 #### [facility] [address] [place] [address] RDW SD 48.0 fL Normal 39.3-48.6 [facility] Comment on above: Performed By: #### 2 337487 #### [facility] [address] [place] [address] WBC #/vol (Bld) 9.5 10*3/uL Normal 4.4-9.9 [facility] Comment on above: Performed By: #### 2 084900 #### [facility] [address] [place] [address] Comprehensive Metabolic Pane siddharth 06-27-2018 Albumin mass conc 3.9 g/dL Normal 3.4-5.0 [facility] Comment on above: Performed By: #### 1 [id number] #### [facility] [address] [place] [address] 87[address] Albumin/Globulin mass ratio 1.3 {ratio} Normal 0.9-2.4 [facility] Comment on above: Performed By: #### 1 [id number] #### [facility] [address] [place] [address] ALP enzyme act/vol 150 U/L High 45-117 [facility] Comment on above: Performed By: #### 1 [id number] #### [facility] [facility] [address] [place] [address] ALT enzyme act/vol 11 U/L Normal 7-45 [facility] Comment on above: Performed By: #### 1 [id number] #### [facility] [address] [place] [address] Anion gap molar conc 13 mmol/L Normal 10-20 [facility] Comment on above: Performed By: #### 1 [id number] #### [facility] [address] [place] [address] AST enzyme act/vol 21 U/L Normal 13-39 [facility] Comment on above: Performed By: #### 1 [id number] #### [facility] [address] [place] [address] Bilirubin mass conc 0.3 mg/dL Normal 0.0-1.[address] [facility] Comment on above: Performed By: #### 1 [id number] #### [facility] [address] [place] [address] Calcium mass conc 9.0 mg/dL Normal 8.6-10.[address] [facility] Comment on above: Performed By: #### 1 [id number] #### [facility] [address] [place] [address] Chloride molar conc 103 mmol/L Normal 98-[address] [facility] Comment on above: Performed By: #### 1 [id number] #### [facility] [address] [place] [address] Creatinine mass conc 1.09 mg/dL High 0.50-1.[address] [facility] Comment on above: Performed By: #### 1 [id number] #### [facility] [address] [place] [address]33 GFR/1.73 sq M.predicted MDRD vol rate/area 53 mL/min/{1.73_m2} Normal [facility] Comment on above: Result Comment: Inte rpretation for Chronic Kidney Disease: Stages 1&2 >60 Healthy or potential kidney damage. Mild decrease of GFR. Stage 3 30-59 Moderate decrease of GFR. Stage 4 15-29 Severe decrease of GFR. Stage 5 <15 Kidney failure or on dialysis. Performed By: #### 1 [id number] #### [facility] [address] [place] [address] Glucose mass conc 94 mg/dL Normal 70-[address] [facility] Comment on above: Performed By: #### 1 [id number] #### [facility] [address] [place] [address]77 HCO3 molar conc (Bld) 27 mmol/L Normal 21-32 [facility] Comment on above: Performed By: #### 1 [id number] #### [facility] [address] [place] [address] Potassium molar conc 4.3 mmol/L Normal 3.5-5.[address] [facility] Comment on above: Performed By: #### 1 [id number] #### [facility] [address] [place] [address] Protein mass conc 6.8 g/dL Normal 6.4-8.[address] [facility] Comment on above: Performed By: #### 1 [id number] #### [facility] [address] [place] [address] Sodium molar conc 139 mmol/L Normal 136-[address] [facility] Comment on above: Performed By: #### 1 [id number] #### [facility] [address] [place] [address] Urea nitrogen mass conc 19 mg/dL Normal 6-[address] [facility] Comment on above: Performed By: #### 1 [id number] #### [facility] [address] [place] [address] Urea nitrogen/Creatinine mass ratio 17 mg/mg Normal 5-[address] [facility] Comment on above: Performed By: #### 1 [id number] #### [facility] [address] [place] [address] Magnesiumon 06-27-2018 Magnesium mass conc 2.0 mg/dL Normal 1.6-2.[address] [facility] Comment on above: Performed By: #### 2 [id number] #### [facility] [address] [place] [address] Magnesium mass conc 1.9 mg/dL Normal 1.6-2.[address] [facility] Comment on above: Performed By: #### 1 [id number] #### [facility] [address] [place] [address] Partial Thromboplastin Timeo n 06-27-2018 aPTT Coag time (Bld) 29.7 s Normal 25.0-36.[address] [facility] Comment on above: Result Comment: . The APTT is no longer used for monitoring Unfractionated Heparin Therapy. For monitoring Heparin Therapy, use the Heparin Assay. Performed By: #### 3 [id number] #### [facility] [address] [place] [address] Prothrombin Timeon 10-29-201 8 INR Coag RelTime (PPP) 3.54 {INR} High 0.90-1.10 [facility] Comment on above: Performed By: #### 3 [id number] #### [facility] [address] [place] [address] Prothrombin time (PT) Coag time (PPP) 41.0 s High 9.7-12.7 [facility] Comment on above: Result Comment: MEGAN RUBIN NOTE NEW REFERENCE RANGE EFFECTIVE 2018 Performed By: #### 3 [id number] #### [facility] [address] [place] [address] INR Coag RelTime (PPP) 2.98 {INR} High 0.90-1.10 [facility] Comment on above: Performed By: #### 3 [id number] #### [facility] [address] [place] [address] Prothrombin time (PT) Coag time (PPP) 33.4 s High 9.8-12.7 [facility] Comment on above: Performed By: #### 3 [id number] #### [facility] [address] [place] [address] TSHon 06-27-2018 Thyrotropin Qn 7.04 mU/L High 0.44-3.98 [facility] Comment on above: Performed By: #### 1 [id number] #### [facility] [address] [place] [address] Thyroxine, Freeon 06-27-2018 Thyroxine, Free 0.90 ng/dL Normal 0.61-1.12 [facility] Comment on above: Performed By: #### 1 [id number] #### [facility] [address] [place] [address] Triiodothyronine, Freeon Triiodothyronine, Free 2.3 pg/mL Normal 1.8-4.2 [facility] Comment on above: Performed By: #### F RT3 #### [facility] [address] [place] [address] Drugs of Abuse, Urine(7)on 0 05-12-2018 Amphetamines/Metamphet amines, Urine Not Detected Normal [facility] Comment on above: Performed By: #### 7 [id number] #### [facility] [address] [facility] [place] [address] Barbiturates, Urine Detected Abnormal [facility] Comment on above: Performed By: #### 7 [id number] #### [facility] [address] [facility] [place] [address] Benzodiazepines, Urine Not Detected Normal [facility] Comment on above: Performed By: #### 7 [id number] #### [facility] [address] [place] [address] Cannabinoids, Urine Not Detected Normal [facility] Comment on above: Performed By: #### 7 [id number] #### [facility] [address] [place] [address] Cocaine, Urine Not Detected Normal [facility] Comment on above: Performed By: #### 7 [id number] #### [facility] [address] [place] [address] Methadone, Urine Not Detected Normal [facility] Comment on above: Performed By: #### 7 [id number] #### [facility] [address] [place] [address] Opiates, Urine Not Detected Normal [facility] Comment on above: Performed By: #### 7 [id number] #### [facility] [address] [place] [address] PCP, Urine Not Detected Normal [facility] Comment on above: Result Comment: Urin e toxicology screen results are to be used for medical purposes only. It is recommended that any result reported as Detected be confirmed by a more specific alternative chemical method. Drug Analyzed Cutoff Concentration(ng/mL) Barbiturates 200 Benzodiazepines 200 Cocaine 150 Opiates 300 Amphetamines 500 Cannabinoids 50 Methadone 150 PCP 25 Performed By: #### 7 [id number] #### [facility] [address] [place] [address] Vital Signs Date Time Vital Sign Value Performing Clinician Facility 03-30-2024 11:54-0400 Body temperature 97.4 [degF] MD Tanner Mae Work Phone: [facility] 03-30-2024 11:54-0400 Diastolic blood pressure 74 mm[Hg] MD Tanner Mae Jr Work Phone: [facility] 03-30-2024 11:54-0400 Heart rate 81 /min MD Tanner Mae Jr Work Phone: [facility] 03-30-2024 11:54-0400 Respiratory rate 16 /min MD Tanner Mae Jr Work Phone: [facility] 03-30-2024 11:54-0400 SaO2% (BldA) [Mass fraction] 98 % MD Tanner Mae Jr Work Phone: [facility] 03-30-2024 11:54-0400 Systolic blood pressure 113 mm[Hg] MD Tanner Mae Jr Work Phone: [facility] 03-30-2024 03:37-0400 Body height 162.56 cm MD Tanner Mae Jr Work Phone: [facility] 03-30-2024 03:37-0400 Body weight 70.6 kg MD Tanner Mae Jr Work Phone: [facility] 03-30-2024 02:07-0400 Diastolic blood pressure 68 mm[Hg] MD Tanner Mae Jr Work Phone: [facility] 03-30-2024 02:07-0400 Heart rate 80 /min MD Tanner Mae Jr Work Phone: [facility] 03-30-2024 02:07-0400 Systolic blood pressure 157 mm[Hg] MD Tanner Mae Jr Work Phone: [facility] 03-30-2024 02:05-0400 Respiratory rate 16 /min MD Tanner Mae Jr Work Phone: [facility] 03-30-2024 02:05-0400 SaO2% (BldA) [Mass fraction] 99 % MD Tanner Mae Jr Work Phone: [facility] 03-29-2024 23:32-0400 Body height 162.56 cm MD Tanner Mae Jr Work Phone: [facility] 03-29-2024 23:32-0400 Body weight 70.9 kg MD Tanner Mae Jr Work Phone: [facility] 03-29-2024 23:30-0400 Body temperature 98 [degF] MD Tanner Mae Jr Work Phone: [facility] 02-22-2024 11:20-0400 Body height 152.4 cm MD Tanner Mae Jr Work Phone: [facility] 02-22-2024 11:20-0400 Diastolic blood pressure 72 mm[Hg] MD Tanner Mae Jr Work Phone: [facility] 02-22-2024 11:20-0400 Heart rate 80 /min MD Tanner Mae Jr Work Phone: [facility] 02-22-2024 11:20-0400 SaO2% (BldA) [Mass fraction] 98 % MD Tanner Mae Jr Work Phone: [facility] 02-22-2024 11:20-0400 Systolic blood pressure 120 mm[Hg] MD Tanner Mae Jr Work Phone: [facility] 02-18-2024 09:48-0400 Body height 152.4 cm MD Tanner Mae Jr Work Phone: [facility] 02-18-2024 09:48-0400 Body mass index (BMI) [Ratio] 29.5 kg/m2 MD Tanner Mae Jr Work Phone: [facility] 02-18-2024 09:48-0400 Body weight 68.49 kg MD Tanner Mae Jr Work Phone: [facility] 02-18-2024 09:48-0400 Diastolic blood pressure 60 mm[Hg] MD Tanner Mae Jr Work Phone: [facility] 02-18-2024 09:48-0400 Heart rate 67 /min MD Tanner Mae Jr Work Phone: [facility] 02-18-2024 09:48-0400 SaO2% (BldA) [Mass fraction] 97 % MD Tanner Mae Jr Work Phone: [facility] 02-18-2024 09:48-0400 Systolic blood pressure 100 mm[Hg] MD Tanner Mae Jr Work Phone: [facility] 01-24-2024 07:01-0400 Diastolic blood pressure 56 mm[Hg] MD Tanner Mae Jr Work Phone: [facility] 01-24-2024 07:01-0400 Heart rate 80 /min MD Tanner Mae Jr Work Phone: [facility] 01-24-2024 07:01-0400 Respiratory rate 14 /min MD Tanner Mae Jr Work Phone: [facility] 01-24-2024 07:01-0400 SaO2% (BldA) [Mass fraction] 100 % MD Tanner Mae Jr Work Phone: [facility] 01-24-2024 07:01-0400 Systolic blood pressure 117 mm[Hg] MD Tanner Mae Jr Work Phone: [facility] 01-24-2024 00:46-0400 Body height 152.4 cm MD Tanner Mae Jr Work Phone: [facility] 01-24-2024 00:46-0400 Body temperature 97.6 [degF] MD Tanner Mae Jr Work Phone: [facility] 01-24-2024 00:46-0400 Body weight 65.31 kg MD Tanner Mae Jr Work Phone: [facility] 11-11-2023 16:14-0400 Body height 152.4 cm DO Dariandebbie Smiley Work Phone: [facility] 11-11-2023 16:14-0400 Body mass index (BMI) [Ratio] 29.2 kg/m2 DO Darian Itzkoj luis Work Phone: [facility] 11-11-2023 16:14-0400 Body temperature 97.8 [degF] DO Darian Itzkowitz Work Phone: [facility] 11-11-2023 16:14-0400 Body weight 68.03 kg DO Darian Itzkowitz Work Phone: [facility] 11-11-2023 16:14-0400 Diastolic blood pressure 68 mm[Hg] DO Darian Itzkowitz Work Phone: [facility] 11-11-2023 16:14-0400 Heart rate 88 /min DO Darian Itzkowitz Work Phone: [facility] 11-11-2023 16:14-0400 Respiratory rate 18 /min DO Darian Itzkowitz Work Phone: [facility] 11-11-2023 16:14-0400 SaO2% (BldA) [Mass fraction] 99 % DO Darian Itzkowitz Work Phone: [facility] 11-11-2023 16:14-0400 Systolic blood pressure 134 mm[Hg] DO Darian Itzkowitz Work Phone: [facility] 10-07-2023 08:44-0500 Diastolic blood pressure 77 mm[Hg] Noman Glover MD Work Phone: [employer] 10-07-2023 08:44-0500 Heart rate 80 /min Noman Glover MD Work Phone: [employer] 10-07-2023 08:44-0500 Systolic blood pressure 113 mm[Hg] Noman Glover MD Work Phone: [employer] 10-07-2023 08:00-0500 Body temperature 99.3 [degF] Noman Glover MD Work Phone: [employer] 10-07-2023 08:00-0500 Respiratory rate 18 /min Noman Glover MD Work Phone: [employer] 10-07-2023 08:00-0500 SaO2% (BldA) [Mass fraction] 97 % Noman Glover MD Work Phone: [facility] [employer] 10-06-2023 04:41-0500 Body mass index (BMI) [Ratio] 26.61 kg/m2 Noman Glover MD Work Phone: [facility] [employer] 10-06-2023 04:41-0500 Body weight 66 kg [facility] 10-05-2023 19:24-0500 Body height 157.5 cm N[facility] 09-29-2023 08:20-0500 SaO2% (BldA) [Mass fraction] 98 % Margareth Nunez MD Work Phone: [facility] 09-29-2023 06:08-0500 Body height 157.5 cm Margareth Nunez MD Work Phone: [facility] 09-29-2023 06:08-0500 Body mass index (BMI) [Ratio] 27.46 kg/m2 Margareth Nunez MD Work Phone: [facility] 09-29-2023 06:08-0500 Body temperature 98.8 [degF] Margareth Nunez MD Work Phone: [facility] 09-29-2023 06:08-0500 Body weight 68.1 kg Margareth Nunez MD Work Phone: [facility] 09-29-2023 06:08-0500 Diastolic blood pressure 63 mm[Hg] Margareth Nunez MD Work Phone: [facility] 09-29-2023 06:08-0500 Heart rate 81 /min Margareth Nunez MD Work Phone: [facility] 09-29-2023 06:08-0500 Respiratory rate 16 /min Margareth Nunez MD Work Phone: [facility] 09-29-2023 06:08-0500 Systolic blood pressure 119 mm[Hg] Margareth Nunez MD Work Phone: [facility] 04-24-2022 13:31-0400 Body height 157.48 cm Shaikh Mallorywad Work Phone: [facility] DO Work Phone: 04-24-2022 13:31-0400 Body mass index (BMI) [Ratio] 29.63 kg/m2 Shaikh Mallorywad Work Phone: [facility] DO Work Phone: 04-24-2022 13:31-0400 Body surface area Derived from formula 1.75 m2 Shaikh Mallorywad Work Phone: [facility] DO Work Phone: 04-24-2022 13:31-0400 Body weight 73.48 kg Shaikh Mallorywad Work Phone: [facility] DO Work Phone: 04-24-2022 13:31-0400 Diastolic blood pressure 60 mm[Hg] Shaikh Mallorywad Work Phone: [facility] DO Work Phone: 04-24-2022 13:31-0400 Heart rate 85 /min Shaikh Sherifwwad Work Phone: [facility] DO Work Phone: 04-24-2022 13:31-0400 Systolic blood pressure 102 mm[Hg] Shaikh Sherifwwad Work Phone: [facility] DO Work Phone: 12-10-2021 06:30-0400 Body height 160.02 cm Jeane Dykes Other [facility] [employer] Other 12-05-2021 08:47-0400 Body height 157.48 cm No PCP None [facility] DO Work Phone: 12-05-2021 08:47-0400 Body mass index (BMI) [Ratio] 27.49 kg/m2 No PCP None [facility] DO Work Phone: 12-05-2021 08:47-0400 Body surface area Derived from formula 1.69 m2 No PCP None [facility] DO Work Phone: 12-05-2021 08:47-0400 Body weight 68.18 kg No PCP None [facility] DO Work Phone: 12-05-2021 08:47-0400 Diastolic blood pressure 72 mm[Hg] No PCP None [facility] DO Work Phone: 12-05-2021 08:47-0400 Heart rate 76 /min No PCP None [facility] DO Work Phone: 12-05-2021 08:47-0400 Systolic blood pressure 104 mm[Hg] No PCP None [facility] DO Work Phone: 10-14-2021 11:23-0500 20 1 Nadir Hoskins DO Work Phone: [facility] DO Work Phone: Comment on above: [id number] 10-13-2021 22:41-0500 Diastolic blood pressure 46 mm[Hg] DO Darian Itzkowitz Work Phone: [facility] 10-13-2021 22:41-0500 Heart rate 59 /min DO Darian Itzkowitz Work Phone: [facility] 10-13-2021 22:41-0500 Systolic blood pressure 80 mm[Hg] DO Darian Itzkowitz Work Phone: [facility] 10-13-2021 21:29-0500 Respiratory rate 18 /min DO Darian Itzkowitz Work Phone: [facility] 10-13-2021 21:29-0500 SaO2% (BldA) [Mass fraction] 96 % DO Darian Itzkowitz Work Phone: [facility] 10-13-2021 13:17-0500 Body height 160.02 cm DO Darian Itzkowitz Work Phone: [facility] 10-13-2021 13:17-0500 Body mass index (BMI) [Ratio] 26.5 kg/m2 DO Darian Itzkowitz Work Phone: [facility] 10-13-2021 13:17-0500 Body temperature 97.4 [degF] DO Darian Itzkowitz Work Phone: [facility] 10-13-2021 13:17-0500 Body weight 68.03 kg DO Darian Itzkowitz Work Phone: [facility] 11-25-2020 15:56-0400 Body Temperature 97.5 [degF] Darian [facility]zkowitz [facility] 11-25-2020 15:56-0400 BP Diastolic 85 mm[Hg] D[facility]zkowitz [facility] 11-25-2020 15:56-0400 BP Systolic 130 mm[Hg] Darian Itzkowitz [facility] 11-25-2020 15:56-0400 Pulse (Heart Rate) 79 /min Darian Itzkowitz [facility] 11-25-2020 15:56-0400 Pulse Oximetry 98 % Darian Itzkowitz [facility] 11-25-2020 15:56-0400 Respiratory Rate 18 /min Dariandebbie Smiley [facility] 11-25-2020 15:56-0400 SaO2% (BldA) [Mass fraction] 98 % Darian Smiley Work Phone: [facility] 11-25-2020 15:19-0400 Height 157.48 cm Darian Baljit [facility] 11-25-2020 05:57-0400 Body weight 83.9 kg [facility] Baljit [facility] 11-23-2020 18:10-0400 BMI (Body Mass Index) 33.9 kg/m2 [facility] Baljit [facility] 11-23-2020 18:10-0400 Body Temperature 97.9 [degF] [facility] Baljit [facility] 11-23-2020 18:10-0400 Body weight 84.2 kg Dariandebbie Smiley [facility] 11-23-2020 18:10-0400 BP Diastolic 81 mm[Hg] Darian Baljit [facility] 11-23-2020 18:10-0400 BP Systolic 121 mm[Hg] [facility] Baljit [facility] 11-23-2020 18:10-0400 Height 157.48 cm [facility] Baljit [facility] 11-23-2020 18:10-0400 Pulse (Heart Rate) 83 /min Dariandebbie Smiley [facility] 11-23-2020 18:10-0400 Pulse Oximetry 97 % [facility] Baljit [facility] 11-23-2020 18:10-0400 Respiratory Rate 19 /min [facility] Baljit [facility] 08-17-2020 03:00-0500 Body Temperature 97.5 [degF] [facility] Baljti [facility] 08-17-2020 03:00-0500 BP Diastolic 52 mm[Hg] Darian Baljit [facility] 08-17-2020 03:00-0500 BP Systolic 98 mm[Hg] Darian Baljit [facility] 08-17-2020 03:00-0500 Pulse (Heart Rate) 94 /min [facility] Baljit [facility] 08-17-2020 03:00-0500 Pulse Oximetry 99 % [facility] Baljit [facility] 08-17-2020 03:00-0500 Respiratory Rate 16 /min [facility] Baljit [facility] 08-16-2020 22:30-0500 BMI (Body Mass Index) 4648.4 kg/m2 [facility] Baljit [facility] 08-16-2020 22:30-0500 Body weight 81.1 kg [facility] Baljit [facility] 08-16-2020 22:30-0500 Height 13.21 cm [facility] Baljit [facility] 08-16-2020 22:18-0500 BP Diastolic 56 mm[Hg] [facility] Baljit [facility] 08-16-2020 22:18-0500 BP Systolic 107 mm[Hg] [facility] Baljit [facility] 08-16-2020 22:18-0500 Pulse (Heart Rate) 96 /min [facility] Baljit [facility] 08-16-2020 22:18-0500 Pulse Oximetry 95 % [facility] Baljit [facility] 08-16-2020 22:18-0500 Respiratory Rate 18 /min [facility] Baljit [facility] 08-16-2020 15:38-0500 BMI (Body Mass Index) 28.3 kg/m2 [facility] 08-16-2020 15:38-0500 Body Temperature 97.4 [degF] [facility] Itmary [facility] 08-16-2020 15:38-0500 Body weight 72.57 kg Dariandebbie Smiley [facility] 08-16-2020 15:38-0500 Height 160.02 cm Darian Baljit [facility] 07-26-2020 01:57-0500 BP Diastolic 58 mm[Hg] [facility] Baljit [facility] 07-26-2020 01:57-0500 BP Systolic 118 mm[Hg] Darian Baljit [facility] 07-26-2020 01:57-0500 Pulse (Heart Rate) 59 /min [facility] Baljit [facility] 07-26-2020 01:57-0500 Pulse Oximetry 97 % [facility] Baljit [facility] 07-26-2020 01:57-0500 Respiratory Rate 16 /min [facility] Baljit [facility] 07-26-2020 00:44-0500 BMI (Body Mass Index) 30.5 kg/m2 [facility] Baljit [facility] 07-26-2020 00:44-0500 Body Temperature 98.4 [degF] [facility] Baljit [facility] 07-26-2020 00:44-0500 Body weight 75.74 kg [facility] Baljit [facility] 07-26-2020 00:44-0500 Height 157.48 cm [facility] Baljit [facility] 07-22-2020 22:23-0500 BP Diastolic 63 mm[Hg] Darian Baljit [facility] 07-22-2020 22:23-0500 BP Systolic 131 mm[Hg] [facility] Baljit [facility] 07-22-2020 22:23-0500 Pulse (Heart Rate) 60 /min [facility] Baljit [facility] 07-22-2020 22:23-0500 Pulse Oximetry 98 % [facility] Baljit [facility] 07-22-2020 22:23-0500 Respiratory Rate 18 /min [facility] Baljit [facility] 07-22-2020 17:54-0500 BMI (Body Mass Index) 31.8 kg/m2 [facility] Baljit [facility] 07-22-2020 17:54-0500 Body Temperature 98 [degF] [facility] Baljit [facility] 07-22-2020 17:54-0500 Body weight 78.9 kg [facility] Baljit [facility] 07-22-2020 17:54-0500 Height 157.48 cm [facility] Baljit [facility] 07-19-2020 10:11-0500 BP Diastolic 60 mm[Hg] [facility] Baljit [facility] 07-19-2020 10:11-0500 BP Systolic 138 mm[Hg] [facility] Baljit [facility] 07-19-2020 10:11-0500 Pulse (Heart Rate) 94 /min [facility] Baljit [facility] 07-19-2020 10:11-0500 Pulse Oximetry 98 % [facility] [facility] 07-19-2020 10:11-0500 Respiratory Rate 16 /min [facility] Baljit [facility] 07-19-2020 07:25-0500 BMI (Body Mass Index) 30.9 kg/m2 [facility] Baljit [facility] 07-19-2020 07:25-0500 Body Temperature 98 [degF] [facility] Baljit [facility] 07-19-2020 07:25-0500 Body weight 76.7 kg [facility] Baljit [facility] 07-19-2020 07:25-0500 Height 157.48 cm [facility] Baljit [facility] 06-15-2020 21:00-0400 Body Temperature 98.1 [degF] [facility] Baljit [facility] 06-15-2020 21:00-0400 BP Diastolic 77 mm[Hg] Darian Baljit [facility] 06-15-2020 21:00-0400 BP Systolic 124 mm[Hg] Darian Baljit [facility] 06-15-2020 21:00-0400 Pulse (Heart Rate) 61 /min Darian Baljit [facility] 06-15-2020 21:00-0400 Pulse Oximetry 96 % Darian Baljit [facility] 06-15-2020 21:00-0400 Respiratory Rate 16 /min Darian Baljit [facility] 06-15-2020 17:00-0400 BMI (Body Mass Index) 30.9 kg/m2 [facility] Baljit [facility] 06-15-2020 17:00-0400 Body weight 76.7 kg [facility] Baljit [facility] 06-15-2020 17:00-0400 Height 157.48 cm Darian Baljit [facility] 06-07-2020 17:00-0400 Body Temperature 97.2 [degF] Darian Baljit [facility] 06-07-2020 17:00-0400 BP Diastolic 71 mm[Hg] Darian Baljit [facility] 06-07-2020 17:00-0400 BP Systolic 104 mm[Hg] Darian Baljit [facility] 06-07-2020 17:00-0400 Pulse (Heart Rate) 60 /min Darian Baljit [facility] 06-07-2020 17:00-0400 Pulse Oximetry 98 % Darian Baljit [facility] 06-07-2020 17:00-0400 Respiratory Rate 14 /min [facility] Baljit [facility] 06-07-2020 06:56-0400 Body weight 84.1 kg [facility] Baljit [facility] 06-05-2020 14:28-0400 Height 157.48 cm Darian abdifatahsdnate [facility] 06-05-2020 06:29-0400 BMI (Body Mass Index) 32.8 kg/m2 [facility] Encounters Encounter Date Encounter Type Care Provider Facility Start: 03-30-2024 End: 03-30-2024 ambulatory Kendrick Jorgensen Facility:[facility] Start: 03-30-2024 End: 03-30-2024 Evaluation and management of inpatient MD Tanner Mae Jr Work Phone: [facility] Work Phone: Start: 03-30-2024 End: 03-30-2024 observation encounter MD Tanner Mae Jr Work Phone: [facility] Work Phone: Start: 02-22-2024 End: 02-22-2024 ambulatory MD Tanner Mae Jr Work Phone: [facility] Work Phone: Start: 02-22-2024 End: 02-22-2024 Patient encounter procedure MD Tanner Mae Jr Work Phone: [facility] Work Phone: Start: 02-18-2024 End: 02-18-2024 ambulatory MD Tanner Mae Jr Work Phone: [facility] Work Phone: Start: 02-18-2024 End: 02-18-2024 Patient encounter procedure MD Tanner Mae Jr Work Phone: [facility] Physician [facility] Work Phone: Start: 02-17-2024 Non-patient / Non-visit MD Jon Schreiber Work Phone: [facility] Physician [facility] Work Phone: Start: 01-24-2024 End: 01-24-2024 Emergency department patient visit MD Tanner Mae Jr Work Phone: [facility]-Emergency Room Work Phone: Start: 01-04-2024 End: 01-07-2024 ambulatory LIAM HYMAN [facility] Start: 11-11-2023 End: 11-11-2023 ambulatory DO Darian Smiley Work Phone: [facility] Work Phone: Start: 11-11-2023 End: 11-11-2023 Patient encounter procedure DO Darian Baljit Work Phone: [facility] Work Phone: Start: 10-12-2023 End: 10-13-2023 [facility] Start: 10-12-2023 End: 10-12-2023 Subsequent hospital visit by physician Heydi Jiang [place] [facility] Comment on above: Longstanding persist ent atrial fibrillation (HCC) (Primary Dx) Start: 10-11-2023 End: 10-12-2023 [facility] Start: 10-11-2023 End: 10-11-2023 Subsequent hospital visit by physician Marcelo Champagne [facility] Work Phone: [facility] Medication Management Start: 10-06-2023 ambulatory Arjun EPPS Facility [facility] Start: 10-05-2023 End: 10-07-[address] [facility] Start: 10-05-2023 End: 10-07-2023 Emergency department patient visit Noman Glover MD Work Phone: [facility] Progressive Care Comment on above: Hypokalemia (Primary Dx); Dizziness; Longstanding persistent atrial fibrillation (HCC) Start: 09-29-2023 End: 09-29-2023 ambulatory [facility] Start: 09-29-2023 End: 09-29-2023 Subsequent hospital visit by physician Margareth Nunez MD Work Phone: [facility] Comment on above: Biventricular implan table cardioverter-defibrillator (ICD) in situ (Primary Dx); Elective replacement of implantable cardioverter-defibrillator (ICD) battery required; Atrial tachycardia; Paroxysmal atrial fibrillation (CMS/HCC); CAD (coronary artery disease); VT (ventricular tachycardia) (CMS/HCC) Start: 09-27-2023 End: 09-27-2023 ambulatory Amanda Grace Other [employer] Other Start: 09-27-2023 Telephone encounter Amanda Herzog her [facility] Start: 09-22-2023 End: 09-22-2023 ambulatory Amanda Grace Other [employer] Other Start: 09-22-2023 Telephone encounter Amanda Herzog her [facility] Start: 09-03-2023 ambulatory [facility] Start: 09-02-2023 End: 09-03-2023 ambulatory [facility] Start: 09-02-2023 End: 09-02-2023 [facility] Start: 09-02-2023 End: 09-02-2023 Subsequent hospital visit by physician [facility] Comment on above: ICD (implantable car dioverter-defibrillator) battery depletion Start: 08-31-2023 End: 08-31-2023 ambulatory Amanda Grace Other [employer] Other Start: 08-31-2023 Telephone encounter Amanda Herzog her [facility] Start: 08-09-2023 End: 08-09-2023 Patient encounter procedure PETE Grace Work Phone: [facility] Start: 08-09-2023 End: 08-09-2023 ambulatory SHOE STITCHER Amanda Sanjay Work Phone: [facility] Work Phone: Comment on above: Persistent atrial fi brillation (HCC) (Primary Dx) Start: 08-02-2023 End: 08-02-2023 ambulatory Amanda Sanjay Other [employer] Other Start: 08-02-2023 Telephone encounter Amanda Herzog [facility] Start: 07-28-2023 Telephone encounter David Osei MD Work Phone: Cardiology Start: 07-25-2023 Follow-up encounter David Osei MD Work Phone: [facility] Start: 07-25-2023 ICD Remote F/U David fairbanks MD Work Phone: [facility] Department Start: 07-07-2023 ambulatory Arjun R NILL Facility : [facility] Start: 06-04-2023 ambulatory Arjun R NILL Facility : [facility] Start: 06-03-2023 [facility]ulatory [facility] Start: 04-30-2023 Follow-up encounter David Osei MD Work Phone: [facility] Start: 04-30-2023 ICD Remote F/U David fairbanks MD Work Phone: [facility] Department Start: 04-17-2023 Follow-up encounter David Osei MD Work Phone: [facility] Start: 04-17-2023 ICD Remote F/U David fairbanks MD Work Phone: [facility] Department Start: 04-05-2023 Follow-up encounter David Osei MD Work Phone: [facility] Start: 04-05-2023 ICD Remote F/U David fairbanks MD Work Phone: [facility] Department Start: 03-29-2023 Rx Renewal Roy Crystal Work Phone: [facility] [address] DO Work Phone: Start: 03-24-2023 Follow-up encounter David Osei MD Work Phone: [facility] Start: 03-24-2023 ICD Remote F/U David fairbanks MD Work Phone: [facility] Department Start: 03-20-2023 Follow-up encounter David Osei MD Work Phone: [facility] Start: 03-20-2023 ICD Remote F/U David fairbanks MD Work Phone: [facility] Department Start: 03-15-2023 ambulatory Margareth Nunez M.D. Facility :[id number] Start: 02-28-2023 Follow-up encounter David Osei MD Work Phone: [facility] Start: 02-28-2023 ICD Remote F/U David fairbanks MD Work Phone: [facility] Department Start: 02-25-2023 Follow-up encounter David Osei MD Work Phone: [facility] Start: 02-25-2023 ICD Remote F/U David fairbanks MD Work Phone: [facility] Department Start: 01-28-2023 AUDIT Shaikh Crystal Work Phone: [facility] [address] DO Work Phone: Start: 01-27-2023 End: 01-27-2023 ambulatory SHAIKH Shawna ROJAS Facility: Start: 01-26-2023 Rx Renewal Shaikh Crystal Work Phone: [facility] 250 DO Work Phone: Start: 01-03-2023 End: 01-03-2023 ambulatory ROY H FAWWAD Facility:H1 Start: 12-28-2022 End: 01-27-2023 ambulatory ROY H FAWWAD Facility:H1 Start: 11-30-2022 End: 12-25-2022 ambulatory ROY H FAWWAD Facility:H1 Start: 11-25-2022 Follow-up encounter David Osei MD Work Phone: [facility] Start: 11-25-2022 ICD Remote F/U David fairbanks MD Work Phone: [facility] Department Start: 10-28-2022 End: 11-27-2022 ambulatory ROY H FAWWAD Facility:[facility]1 Start: 10-26-2022 End: 10-27-[address] Juan Miguel FONTENOT Facility:H1 Start: 10-23-2022 Letter encounter Anju Cuevasjose angel MILLER Work Phone: [facility] Start: 10-06-2022 End: 10-07-2022 ambulatory ROY H FAWWAD Facility:H1 Start: 09-30-2022 End: 10-28-2022 ambulatory ROY H FAWWAD Facility:H1 Start: 09-11-2022 Telephone encounter Julio Bolanos oordinator Work Phone: Cardiology Comment on above: Research (IRB [id number] TRIM-AF) Start: 08-31-2022 End: 09-30-2022 ambulatory ROY H FAWWAD Facility:H1 Start: 08-17-2022 Follow-up encounter David Osei MD Work Phone: [facility] Start: 08-17-2022 ICD Remote F/U David fairbanks MD Work Phone: [facility] Department Start: 07-30-2022 End: 08-30-2022 ambulatory ROY H FAWWAD Facility:H1 Start: 07-27-2022 ambulatory Britta Tang [facility] Comment on above: Opened In Error Start: 06-30-2022 End: 07-29-2022 ambulatory ROY H FAWWAD Facility:H1 Start: 06-29-2022 Other [facility] Work Phone: Start: 06-29-2022 Follow-up encounter David Osei MD Work Phone: [facility] Start: 06-29-2022 ICD Remote F/U David fairbanks MD Work Phone: [facility] Department Start: 05-31-2022 End: 06-29-2022 ambulatory ROY H FAWWAD Facility:H1 Start: 05-28-2022 Follow-up encounter David Osei MD Work Phone: [facility] Start: 05-28-2022 ICD Remote F/U David fairbanks MD Work Phone: [facility] Department Start: 05-06-2022 Patient encounter procedure Roy Fawwad Work Phone: [facility] DO Work Phone: Start: 04-30-2022 End: 05-30-2022 ambulatory ROY H FAWWAD Facility:H1 Start: 04-24-2022 Current tobacco non-user cad cap copd pv dm Roy [facility]awwad [facility] Work Phone: Start: 04-23-2022 End: 04-24-2022 ambulatory ROY H FAWWAD Facility:H1 Start: 04-16-2022 End: 04-17-2022 ambulatory ROY H FAWWAD Facility:H1 Start: 04-09-2022 Follow-up encounter David Osei MD Work Phone: [facility] Start: 04-09-2022 ICD Remote F/U David fairbanks MD Work Phone: [facility] Department Start: 04-07-2022 Telephone encounter No PCP None - Merged With [facility] 250 DO Work Phone: Start: 03-30-2022 End: 04-29-2022 ambulatory [facility] Facility:H1 Start: 03-12-2022 Rx Renewal No PCP [facility] Work Phone: Start: 03-02-2022 End: 03-27-2022 ambulatory [facility] Facility: Start: 02-24-2022 Telephone encounter No PCP None - Merged With [facility] 250 DO Work Phone: Start: 02-18-2022 Rx Renewal No PCP [facility] DO Work Phone: Start: 02-17-2022 Patient encounter procedure No PCP None [facility] 250 DO Work Phone: Start: 01-22-2022 Chart Update No PCP None [facility] [address] [place] Work Phone: Start: 01-08-2022 Follow-up encounter David Osei MD Work Phone: [facility] Start: 01-08-2022 ICD Remote F/U David fairbanks MD Work Phone: [facility] Department Start: 01-07-2022 AUDIT No PCP None -[facility] [address] DO Work Phone: Start: 12-31-2021 End: 12-31-2021 ambulatory Jeane Dykes Other [facility] [employer] Other Start: 12-31-2021 Telephone encounter Jeane Dykes [facility] Start: 12-26-2021 End: 12-26-2021 ambulatory Jeane Fitt Other [employer] Other Start: 12-26-2021 Telephone encounter Jeane Higuera [facility] Start: 12-23-2021 ([facility] R A/c) [facility] Repeat A/C Jeane Dykes [facility] Start: 12-23-2021 End: 12-23-2021 ambulatory Jeane Fitt Other [employer] Other Start: 12-17-2021 (Repeat [facility]) Jeane Dykes [facility] Start: 12-17-2021 End: 12-17-2021 ambulatory Jeane Fitt Other [employer] Other Start: 12-17-2021 Telephone encounter Jeane Dykes [facility] Start: 12-12-2021 AUDIT No PCP None [facility] [address] DO Work Phone: Start: 12-11-2021 End: 12-11-2021 ambulatory Jeane Fitt Other [employer] Other Start: 12-11-2021 Telephone encounter Jeane Higuera [facility] Start: 12-10-2021 (Repeat ACH) Jeane Dykes [facility] Start: 12-10-2021 End: 12-10-2021 ambulatory Jeane Fitt Other [employer] Other Start: 12-05-2021 Current tobacco non-user cad cap copd pv dm No PCP None [facility] [address] DO Work Phone: Start: 11-26-2021 End: 11-26-2021 ambulatory Jeane Fitt Other [employer] Other Start: 11-26-2021 Telephone encounter Jeane Jania Higuera [facility] Start: 11-19-2021 (Repeat ACH) Jeane Juan Ft [facility] Start: 11-19-2021 End: 11-19-2021 ambulatory Jeane Fitt Other [employer] Other Start: 11-19-2021 Telephone encounter Jeane Juan Ft [facility] Start: 11-18-2021 End: 11-18-2021 ambulatory Jeane Fitt Other [employer] Other Start: 11-18-2021 Telephone encounter Jeane Juan Ft [facility] Start: 11-11-2021 ([facility] R A/c) [facility] Repeat A/C Jeane Juan Ft [facility] Start: 11-11-2021 End: 11-11-2021 ambulatory Jeane Fitt Other [employer] Other Start: 11-10-2021 End: 11-10-2021 ambulatory Jeane Fitt Other [employer] Other Start: 11-10-2021 Telephone encounter Jeane Juan Ft [facility] Start: 11-05-2021 (Repeat ACH) Jeane Juan Ft [facility] Start: 11-05-2021 End: 11-05-2021 ambulatory Jeane Fitt Other [employer] Other Start: 11-03-2021 End: 11-03-2021 ambulatory Jeane Fitt Other [employer] Other Start: 11-03-2021 Telephone encounter Jeane Juan Ft [facility] Start: 10-30-2021 End: 10-30-2021 ambulatory Jeane Fitt Other [employer] Other Start: 10-30-2021 Telephone encounter Jeane Juan Ft [facility] Start: 10-29-2021 (Repeat ACH) Jeanealfredo Rogelt [facility] Start: 10-29-2021 End: 10-29-2021 ambulatory Jeane Fitt Other [employer] Other Start: 10-29-2021 Telephone encounter Jeane Dykes [facility] Start: 10-23-2021 (Repeat A[facility]) Jeane Jania [facility] Start: 10-23-2021 End: 10-23-2021 ambulatory Jeane Fitt Other [employer] Other Start: 10-22-2021 Patient encounter procedure Nadir Hoskins DO Work Phone: -Merged With [facility] 250 DO Work Phone: Start: 10-13-2021 Evaluation and management of inpatient DO Darian Smiley Work Phone: [facility]-[address] [place] [address] Critical Care Start: 09-09-2021 End: 09-09-2021 ambulatory Jeane Fitt Other [employer] Other Start: 09-09-2021 Telephone encounter Jeane Higuera [facility] Start: 09-04-2021 ([facility] R A/c) [facility] Repeat A/C Jeane Dykes [facility] Start: 09-04-2021 End: 09-04-2021 ambulatory Jeane Fitt Other [employer] Other Start: 09-04-2021 Telephone encounter Jeane Jania [facility] Start: 09-04-2021 Registered Recurring DO Sena Smiley Work Phone: [facility] Start: 08-04-2021 End: 08-04-2021 ambulatory Jeane Fitt Other [employer] Other Start: 08-04-2021 [facility] Start: 07-28-2021 Patient encounter procedure Nadir Hoskins DO Work Phone: -Merged With [facility] Downey DO Work Phone: Start: 07-17-2021 ([facility] R A/c) [facility] Repeat A/C Jeanealfredo Dykes [facility] Start: 07-17-2021 End: 07-17-2021 ambulatory Jeane Juan Ft Other [employer] Other Start: 06-30-2021 ([facility] R A/c) [facility] Repeat A/C Jeanealfredo Dykes [facility] Start: 06-30-2021 End: 06-30-2021 ambulatory Jeane Fitt Other [employer] Other Start: 06-20-2021 Telephone encounter Jeane [facility] Start: 06-09-2021 ([facility] R A/c) [facility] Repeat A/C Jeane Dykes [facility] Start: 11-23-2020 End: 11-25-2020 Evaluation and management of inpatient Darian Itzkowitz -[facility] [place] Start: 09-17-2020 Registered Recurring Darian Devaughn [facility] Start: 08-16-2020 End: 08-17-2020 Evaluation and management of inpatient Darian Itzkowitz -[facility] [place] [facility] Start: 08-05-2020 Registered Recurring Darian Devaughn [facility] Start: 07-26-2020 End: 07-26-2020 Emergency department patient visit Darian Itzkowitz -Emergency Room Start: 07-22-2020 End: 07-22-2020 Emergency department patient visit Darian Itzkowitz -Emergency Room Start: 07-19-2020 End: 07-19-2020 Emergency department patient visit Darian Itzkocttz -Emergency Room Start: 06-15-2020 End: 06-15-2020 Evaluation and management of inpatient Darian Itzkowitz -4 [place] [facility] Start: 06-05-2020 End: 06-07-2020 Evaluation and management of inpatient Darian Itzkowitz -[facility] [place] Start: 11-08-2019 ambulatory UNKNOWN PROVIDER Facili ty:[facility] Start: 10-12-2018 End: 10-12-2018 Patient encounter procedure MARGARETH MAYRA [facility] Start: 10-07-2018 Patient encounter procedure JAMEEL CELAYAAbdoulayeELVIN Facility:7 Start: 08-04-2018 End: 08-05-2018 Patient encounter procedure MARGARETH MAYRA Facility:[facility] Start: 08-02-2018 Patient encounter procedure SETH VASQUEZ Facility:[id number] Start: 06-27-2018 End: 07-01-2018 Evaluation and management of inpatient MARGARETH NUNEZ Facility:[facility] Start: 05-12-2018 End: 05-12-2018 Patient encounter procedure MARGARETH NUNEZ Facility:[facility] Start: 11-29-2003 Evaluation and management of inpatient Darian Itzkocttz -[facility] Patient encounter status No PCP None [facility] [address] DO Work Phone: Procedures Date Procedure Procedure Detail Performing Clinician Start: 03-30-2024 CT of head without contrast MD Tanner neff Jr Work Phone: Start: 03-29-2024 Plain chest X-ray MD Tanner Mae Jr Work Phone: Start: 01-24-2024 Plain chest X-ray MD Tanner Mae Jr Work Phone: Start: 10-12-2023 Prothrombin time Historical Provider Start: 10-11-2023 Prothrombin time Historical Provider Start: 10-07-2023 BASIC METABOLIC PANEL W/ REFLEX TO MG FOR LOW K Azalea Cai [employer] - [employer]OD [employer] Work Phone: Start: 10-07-2023 Prothrombin time Swapnil Brand MD Work Phone: Start: 10-06-2023 Potassium serum plasma/whole blood Feliz Brand MD Work Phone: Start: 10-06-2023 BASIC METABOLIC PANEL W/ REFLEX TO MG FOR LOW K Swapnil Brand MD Work Phone: Start: 10-06-2023 Prothrombin time Azalea Ede Trell [facility] Work Phone: Start: 10-06-2023 Intermittent pulse oximetry Azalea Ede Trell [facility] Work Phone: Start: 10-05-2023 Assay of troponin [...] Phone: Start: 09-29-2023 Electrophysiology study Jameel Valenzuela [facility] Work Phone: Start: 09-29-2023 Ecg routine ecg w/least 12 lds trcg only w/o i&r Yessi Miller [facility] Work Phone: Start: 09-29-2023 Basic metabolic panel calcium total Yessi M Kovalsky [employer]OE [employer] Work Phone: Start: 09-29-2023 EXTRA TUBES Margareth Nunez MD Work Phone: Start: 09-29-2023 LAVENDER TOP Margareth Nunez MD Work Phone: Start: 09-29-2023 LIGHT BLUE TOP Margareth Nunez MD Work Phone: Start: 09-29-2023 PST TOP Margareth Nunez MD Work Phone: Start: 09-03-2023 ELECTROPHYSIOLOGY PROCEDURE YESSI MILLER Start: 09-02-2023 CASE REQUEST EP LAB JAMEEL VALENZUELA Start: 09-02-2023 CARDIAC DEVICE CHECK - IN CLINIC YESSI [place] [facility] Start: 09-02-2023 Prgrmg eval implantable in prsn [...] and B virus antigen assay DO Darian Itnehalsanjanactnate Work Phone: Start: 10-13-2021 CT of abdomen and pelvis without contrast DO Darian Itmary Work Phone: Start: 10-13-2021 Plain chest X-ray DO Darian Itnehalsanjanaj luis Work Phone: Start: 11-25-2020 Esophagogastroduodenoscopy Darian Lien dietz Start: 11-24-2020 End: 11-24-2020 Screening for occult blood in feces Darian Baljit Start: 11-23-2020 Plain chest X-ray Darian Itmary Start: 11-23-2020 SARS Antigen (LFIA) Darian Itmary Start: 11-23-2020 Urine culture Darian Baljit Start: 08-17-2020 Lipid 1996 panel - Serum or Plasma David Osei MD Work Phone: Start: 08-16-2020 Plain chest X-ray Darian Baljit Start: 08-16-2020 Bacteria identified Cx Nom (U) Darian I steph Start: 08-16-2020 Respiratory Panel (PCR) Darianrakesh Cantort z Start: 07-26-2020 Plain chest X-ray Darian Baljit Start: 07-22-2020 Plain chest X-ray Darian Baljit Start: 07-22-2020 SARS Antigen (LFIA) Darian Baljit Start: 07-19-2020 Urine culture Darian Baljit Start: 07-19-2020 Plain chest X-ray Darian Baljit Start: 06-15-2020 Respiratory Panel (PCR) Darian Cantort z Start: 06-15-2020 Plain chest X-ray Darian Baljit Start: 06-04-2020 Plain chest X-ray Dairan Baljit Start: 11-08-2019 extraction, erupted tooth or exposed root (elevation and/or forceps removal) UNKNOWN PROVIDER Start: 08-30-2011 Total colonoscopy Nadir Rodríguezdon DO Work Phone: Adenoid excision Nadir lawrence DO Work Phone: Appendectomy Nadir Gato DO Work Phone: Catheter ablation of arrhythmogenic focus Nadir Gato DO Work Phone: section No PCP None Cholecystectomy Nadir Rodríguez rambo DO Work Phone: Coronary artery bypass graft Nadir Rodríguezdon DO Work Phone: History of appendectomy History of appendectomy DO Darian Smiley Work Phone: History of coronary artery bypass grafting S/P CABG (coronary artery bypass graft) Nadir Gato DO Work Phone: Hysterectomy Nadir Rodríguezdon DO Work Phone: Operative procedure on knee Nadir Gato DO Work Phone: Percutaneous translu get coronary angioplasty Nadir Hoskins DO Work Phone: Replacement of mitral valve Nadir Hoskins DO Work Phone: Surgical procedure on thorax Nadir Hoskins DO Work Phone: Tonsillectomy Nadir fuentes DO Work Phone: Plan of Treatment Date Care Activity Detail Author Start: 2034 PNEUMOCOCCAL (3 - PPSV23 if available, else PCV20) PNEUMOCOCCAL (3 - PPSV23 if available, else PCV20) [facility] Start: 2034 PNEUMOCOCCAL (3 - PPSV23 or PCV20) PNEUMOCOCCAL (3 - PPSV23 or PCV20) [facility] Start: [address] [facility] Start: 2034 Pneumococcal Vaccine: Pediatrics (0 to 5 Years) and At-Risk Patients (6 to 64 Years) (3 - PPSV23 or PCV20) Pneumococcal Vaccine: Pediatrics (0 to 5 Years) and At-Risk Patients (6 to 64 Years) (3 - PPSV23 or PCV20) [facility] Start: 08-17-2025 Lipid 1996 panel - Serum or Plasma Lipid Screening [facility] Start: 08-17-2025 LIPID SCREEN LIPID SCREEN [facility] Start: 09-29-2024 Creatinine measurement Creatinine Level [facility] Start: 09-29-2024 Potassium measurement Potassium Level [facility] Start: 08-30-2024 Cholesterol [Mass/volume] in Serum or Plasma Cholesterol [facility] Start: 04-13-2024 [facility] Start: 04-12-2024 [facility] Start: 04-11-2024 [facility] Start: 04-10-2024 [facility] Start: 04-09-2024 [facility] Start: 04-08-2024 [facility] Start: 04-07-2024 [facility] Start: 04-06-2024 [facility] Start: 04-05-2024 [facility] Start: 04-04-2024 [facility] Start: 04-03-2024 [facility] Start: 04-02-2024 [facility] Start: 04-01-2024 [facility] Start: 03-31-2024 [facility] Start: 03-30-2024 Bacteria identified in Urine by Culture [facility] Start: 03-30-2024 End: 03-30-2024 [facility] Start: 03-30-2024 Referral to Assurance Senior Manager [facility] Start: 03-30-2024 Referral to power plant supervisor [facility] Start: 03-30-2024 Hospital admission [facility] Start: 03-29-2024 Plain chest X-ray XR chest 2V* [facility] Start: 03-29-2024 XR Chest 2 Views [facility] Start: 03-29-2024 End: 03-29-2024 Patient encounter procedure 03/29/2024 8:30 AM EDT Office Visit [facility] [address] [place] [id number] Jameel Valenzuela E, SHOE [employer]ER [address] [facility] [address] [place] [address] [facility] Start: 03-19-2024 DIABETES SCREEN DIABETES SCREEN [facility] Start: 03-19-2024 Diabetes Screening Diabetes Screening [facility] Start: 02-22-2024 Patient referral [facility] Work Phone: Start: 01-24-2024 Plain chest X-ray XR chest 1V portable [facility] Start: 01-24-2024 XR Chest Single view [facility] Start: 10-22-2023 End: 10-22-2023 Patient encounter procedure 10/22/2023 9:30 AM EST Office Visit [address] [phone] [place] [address] [place] [id number] new pat/ hosp f/u [facility] Comment on above: new pat/ hosp f/u Start: 10-18-2023 End: 10-18-2023 Patient encounter procedure 10/18/2023 2:50 PM EST Appointment [facility]ication [facility] [address] [place] [phone] INR- new Lovenox (CPA 10/06/24 Tracey) [facility] Comment on above: INR- new Lovenox (CPA 10/06/24 Tracey) Start: 10-13-2023 End: 10-06-2024 Basic metabolic 2000 panel - Serum or Plasma Basic Metabolic Panel Lab Routine Hypokalemia Expected: 10/13/2023, Expires: 10/06/2024 [facility] Comment on above: Expected: 10/13/2023, Expires: Start: 10-13-2023 End: 10-06-2024 CBC panel - Blood by Automated count CBC Lab Routine Dizziness Expected: 10/13/2023, Expires: 10/06/2024 [facility] Comment on above: Expected: 10/13/2023, Expires: Start: 10-13-2023 End: 10-13-2023 Patient encounter procedure 10/13/2023 11:00 AM EST Office Visit [facility] [address], [address] [place] [address] Ajay Robles DO [address] [facility] [address] [place] [phone] Robles [facility] Comment on above: per Dr. Robles Start: 10-12-2023 End: 10-12-2023 Patient encounter procedure 10/12/2023 3:50 PM EST Appointment [facility]ication [facility] [address] [place] [address] INR- new Lovenox (CPA 10/06/24 Tracey) [facility] Comment on above: INR- new Lovenox (CPA 10/06/24 Tracey) Start: 10-08-2023 End: 10-08-2023 Patient encounter procedure 10/08/2023 10:30 AM EST Appointment [facility]ication [facility] [address] [place] [address] INR- new Lovenox (CPA 10/06/24 Tracey) [facility] Comment on above: INR- new Lovenox (CPA 10/06/24 Tracey) Start: 10-06-2023 End: 10-06-2023 Clinical Support 10/06/2023 8:30 AM EST Clinical Support [facility] [address] [place] [address] [facility] Start: 09-29-2023 End: 09-29-2023 Admission to same day surgery center 09/29/2023 2:00 PM EST - 09/29/2023 4:00 PM EST Surgery [facility] [address] [facility] [place] [address] Margareth Nunez MD [address] [facility] [address] [place], [place] [id number] ICD BIV Generator Change Out [16156 (CPT )] [facility] Comment on above: ICD BIV Generator Change Out [59547 (CPT )] Start: 09-29-2023 Subsequent hospital visit by physician 09/29/2023 2:00 PM EST Hospital Encounter [facility] [address] [place] [facility] [place] [address] Margareth Nunez MD [address] [facility], [facility] [address] [place] [address] Biventricular implantable cardioverter-defibrilla tor (ICD) in situ; Elective replacement of implantable cardioverter-defibrilla tor (ICD) battery required [facility] Comment on above: Biventricular implantable cardioverter-d efibrillator (ICD) in situ; Elective replacement of implantable cardioverter-defibrillator (ICD) battery required Start: 09-09-2023 End: 12-09-2023 Basic metabolic 2000 panel - Serum or Plasma BASIC METABOLIC PNL Lab Routine Persistent atrial fibrillation (HCC) Expected: 09/09/2023 (Approximate), Expires: 12/09/2023 [facility] Work Phone: Comment on above: Expected: 09/09/2023 (Approximate), Expi res: 12/09/2023 Start: 09-09-2023 End: 04-11-2024 CBC panel - Blood by Automated count CBC Lab Routine Persistent atrial fibrillation (HCC) Expected: 09/09/2023 (Approximate), Expires: 12/09/2023 [facility] Work Phone: Comment on above: Expected: 09/09/2023 (Approximate), Expi res: 12/09/2023 Start: 09-09-2023 End: 12-09-2023 CONFIRM BLOOD TYPE CONFIRM BLOOD TYPE Blood Bank Routine Persistent atrial fibrillation (HCC) Expected: 09/09/2023 (Approximate), Expires: 12/09/2023 [facility] Work Phone: Comment on above: Expected: 09/09/2023 (Approximate), Expi res: 12/09/2023 Start: 09-09-2023 End: 12-09-2023 TYPE AND SCREEN,30 DAY TYPE AND SCREEN,30 DAY Blood Bank Routine Persistent atrial fibrillation (HCC) Expected: 09/09/2023 (Approximate), Expires: 12/09/2023 [facility] Work Phone: Comment on above: Expected: 09/09/2023 (Approximate), Expi res: 12/09/2023 Start: 08-30-2023 Annual Wellness Visit (Medicare Advantage) Annual Wellness Visit (Medicare Advantage) [facility] Start: 04-30-2023 Covid-19 Vaccine ( season) Covid-19 Vaccine ( season) [facility] Start: 04-30-2023 Influenza vaccination [facility] Start: 03-30-2023 Influenza vaccination [facility] (#1[facility] Start: 03-15-2023 FUV, Provider: Margareth Nunez, Status: Pen, Time: 1:40 PM FUV, Provider: Margareth Nunez, Status: Pen, Time: 1:40 PM -[facility] [address] DO Work Phone: Start: 11-14-2022 Echocardiography Ech[facility] Start: 10-27-2022 FUV, Provider: Margareth Nunez, Status: Pen, Time: 3:00 PM FUV, Provider: Margareth Nunez, Status: Pen, Time: 3:00 PM [facility] [address] DO Work Phone: Start: 05-30-2022 Influenza vaccination Influenza Vaccine (#1) [facility] Start: 05-25-2022 FUV, Provider: Inna Jesus, Status: Pen, Time: 1:30 PM FUV, Provider: Inna Jesus, Status: Pen, Time: 1:30 PM [facility] [address] DO Work Phone: Start: 05-20-2022 BP CONTROLLED (<130/80) BP CONTROLLED (<130/80) [facility] Start: 04-30-2022 Influenza vaccination [facility] Start: 04-24-2022 FUV, Provider: Margareth Nunez, Status: Pen, Time: 1:20 PM FUV, Provider: Margareth Nunez, Status: Pen, Time: 1:20 PM [facility] [address] [place] Work Phone: Start: 04-15-2022 FUV, Provider: Inna Jesus, Status: Pen, Time: 4:00 PM FUV, Provider: Inna Jesus, Status: Pen, Time: 4:00 PM -[facility] [address] DO Work Phone: Start: 03-25-2022 FUV, Provider: Inna Jesus, Status: Pen, Time: 8:00 AM FUV, Provider: Inna Jesus, Status: Pen, Time: 8:00 AM [facility] 250 DO Work Phone: Start: 03-12-2022 Diabetes mellitus screening Diabetes Screening [facility] Start: 02-23-2022 FUV, Provider: Inna Jesus, Status: Pen, Time: 8:00 AM FUV, Provider: Inna Jesus, Status: Pen, Time: 8:00 AM -Merged With [facility] [address] DO Work Phone: Start: 01-21-2022 [facility], Provider: Margareth Nunez, Status: Pen, Time: 9:00 AM [facility], Provider: Margareth Nunez, Status: Pen, Time: 9:00 AM -Merged With [facility] [address] DO Work Phone: Start: 01-20-2022 [facility], Provider: Soco Bhardwaj, Status: Pen, Time: 8:00 AM [facility], Provider: Soco Bhardwaj, Status: Pen, Time: 8:00 AM -Merged With [facility] [address] DO Work Phone: Start: 12-31-2021 EP ABLAT, Provider: [facility] JUNIOR GRAPHIC DESIGNER 5,[id number], Status: Pen, Time: 11:00 AM EP ABLAT, Provider: [facility] JUNIOR GRAPHIC DESIGNER 5,[id number], Status: Pen, Time: 11:00 AM -Merged With [facility] [address] DO Work Phone: Start: 12-31-2021 [facility], Provider: Soco Bhardwaj, Status: Pen, Time: 11:00 AM [facility], Provider: Soco Bhardwaj, Status: Pen, Time: 11:00 AM -Merged With [facility] [address] DO Work Phone: Start: 12-31-2021 [facility], Provider: Margareth Nunez, Status: Pen, Time: 8:00 AM [facility], Provider: Margareth Nunez, Status: Pen, Time: 8:00 AM -Merged With [facility] [address] DO Work Phone: Start: 12-31-2021 JOVITA, Provider: [facility] JUNIOR GRAPHIC DESIGNER 1,[id number], Status: Pen, Time: 8:00 AM JOVITA, Provider: [facility] JUNIOR GRAPHIC DESIGNER 1,[id number], Status: Pen, Time: 8:00 AM -[facility]erged With [facility] [address] DO Work Phone: Start: 11-19-2021 FUV, Provider: Nadir Hoskins, Status: Pen, Time: 9:20 AM FUV, Provider: Nadir Hoskins, Status: Pen, Time: 9:20 AM -[facility] [address] DO Work Phone: Start: 10-29-2021 FUV, Provider: Inna Jesus, Status: Pen, Time: 2:30 PM FUV, Provider: Inna Jesus, Status: Jalen, Time: 2:30 PM [facility] 250 DO Work Phone: Start: 10-13-2021 Bacteria identified in Blood by Culture Blood Culture [facility] Start: 10-13-2021 Bacteria identified in Urine by Culture Urine Culture [facility] Start: 08-17-2021 Hepatitis B surface antibody level LDL CHOLESTEROL [facility] Start: 05-11-2021 COVID-19 VACCINE (3 - Booster for Pfizer series) COVID-19 VACCINE (3 - Booster for Pfizer series) [facility] Start: 02-03-2021 COVID-19 VACCINE (3 - Booster for Pfizer series) COVID-19 VACCINE (3 - Booster for Pfizer series) [facility] Start: 02-03-2021 COVID-19 VACCINE (3 - Pfizer series) COVID-19 VACCINE (3 - Pfizer series) [facility] Start: 2019 Measurement of occult blood in single stool specimen FIT [facility] Start: 2019 Screening for malignant neoplasm of breast Breast cancer screen [facility] Start: 2019 Screening for malignant neoplasm of colon CRC Screening [facility] Start: 2019 Shingles (RZV) Vaccine (1 of 2) Shingles (RZV) Vaccine (1 of 2) [facility] Start: 2019 Shingles vaccine (1 of 2) Shingles vaccine (1 of 2) [facility] Start: 2019 SHINGRIX VACCINE (1 of 2) SHINGRIX VACCINE (1 of 2) [facility] Start: 2019 Zoster Vaccines (1 of 2) Zoster Vaccines (1 of 2) [facility] Start: 2014 COLOGUARD (FIT-DNA) COLOGUARD (FIT-DNA) [facility] Start: 2014 Colonoscopy COLONOSCOPY [facility] Start: 2014 COLORECTAL CANCER SCREENING COLORECTAL CANCER SCREENING [facility] Start: [address] COLONOGRAPHY [facility] Start: 2014 FECAL OCCULT BLOOD FECAL OCCULT BLOOD [facility] Start: 2014 Screening for malignant neoplasm of colon [facility] Start: 2014 SIGMOIDOSCOPY SIGMOIDOSCOPY [facility] Start: 02-06-2013 DTaP/Tdap/Td vaccine (1 - Tdap) DTaP/Tdap/Td vaccine (1 - Tdap) [facility] Start: 02-06-2013 DTaP/Tdap/Td Vaccines (1 - Tdap) DTaP/Tdap/Td Vaccines (1 - Tdap) [facility] Start: 02-06-2013 Urine microalbumin profile [facility] Start: 2009 Mammography [facility] Start: 2009 Screening for malignant neoplasm of breast [facility] Start: 1999 HPV TESTING HPV TESTING [facility] Start: 1999 Screening for malignant neoplasm of cervix [facility] Start: 1990 PAP TESTING PAP TESTING [facility] Start: 1990 Screening for malignant neoplasm of cervix [facility] Start: 1988 DTaP/Tdap/Td vaccine (1 - Tdap) DTaP/Tdap/Td vaccine (1 - Tdap) [facility] Start: 1987 ANNUAL PCP TEAM CHRONIC DISEASE VISIT ANNUAL PCP TEAM CHRONIC DISEASE VISIT [facility] Start: 1987 BP CONTROLLED (<130/80) BP CONTROLLED (<130/80) [facility] Start: 1987 HEPATITIS C SCREENING HEPATITIS C SCREENING [facility] Start: [address] [facility] Start: 1987 HIV SCREENING HIV SCREENING [facility] Start: 1987 SPIROMETRY SPIROMETRY [facility] Start: 1987 Tetanus + diphtheria + acellular pertussis vaccine (product) Tdap Booster [facility] Start: [address] [facility] Start: 1981 Depression Screen Depression Screen [facility] Start: 1979 Lipid panel Lipids [facility] Start: 1970 MMR Vaccines (1 of 1 - Standard series) MMR Vaccines (1 of 1 - Standard series) [facility] Start: 01-09-1970 COVID-19 Vaccine (#1) COVID-19 Vaccine (#1) [facility] Start: 1969 Creatinine measurement Creatinine Level [facility] Start: 1969 Ejection Fraction Ejection Fraction [facility] Start: 1969 HEPATITIS B (1 of 3 - 3-dose series) HEPATITIS B (1 of 3 - 3-dose series) [facility] Start: 1969 Hepatitis B Vaccine (1 of 3 - 3-dose series) Hepatitis B Vaccine (1 of 3 - 3-dose series) [facility] Start: 1969 Hepatitis B Vaccines (1 of 3 - 3-dose series) Hepatitis B Vaccines (1 of 3 - 3-dose series) [facility] Start: 1969 HIV screening HIV Screening [facility] Start: 1969 Lipid panel Lipid Panel [facility] Start: 1969 Medicare Annual Wellness Visit Medicare Annual Wellness Visit (AWV) [facility] Start: 1969 Potassium measurement Potassium Level [facility] Start: 1969 Screening for malignant neoplasm of colon [facility] Start: 1969 Thyroid stimulating hormone measurement TSH Level [facility] Anion gap measurement [facility] aPTT in Platelet poo r plasma by Coagulation assay [facility] Bacteria identified in Blood by Culture [facility] Bacteria identified in Urine by Culture [facility] End: 10-08-2023 Basic Metabolic Panel w/ Reflex to MG Basic Metabolic Panel w/ Reflex to MG Lab Routine Daily for 3 Days starting 10/06/2023 until 10/08/2023, 1 completed [facility] [employer] Comment on above: Daily for 3 Days starting 10/06/2023 unt il 10/08/2023, 1 completed Basophil count [facility] Basophil percent differential count [facility] Basophils [#/volume] in Blood by Automated count [facility] Basophils/100 leukoc ytes in Blood by Automated count [facility] Calcium [Mass/volume ] in Serum or Plasma [facility] Calculated LDL cholesterol level [facility] Carbon dioxide, tota l [Moles/volume] in Serum or Plasma [facility] Cardiac Device Check - In Clinic Cardiac Device Check - In Clinic Implantable Cardiac Device Routine ICD (implantable cardioverter-defibrilla tor) battery depletion 09/02/2023 1:53 PM EST [facility] Service Area Work Phone: End: 10-08-2023 CBC W Auto Differential panel - Blood CBC with auto differential Lab Routine Daily for 3 Days starting 10/06/2023 until 10/08/2023, 2 completed [employer] Comment on above: Daily for 3 Days starting 10/06/2023 unt il 10/08/2023, 2 completed Chloride [Moles/volu me] in Serum or Plasma [facility] Cholesterol.total/Ch olest christine in HDL [Mass Ratio] in Serum or Plasma [facility] End: 10-06-2023 Clostridium Difficile Toxin/Antigen Clostridium Difficile Toxin/Antigen Microbiology Routine 36 Hours Expiring for 36 Hours starting 10/06/2023 until 10/06/2023 [employer] Comment on above: 36 Hours Expiring for 36 Hours starting 10/06/2023 until 10/06/2023 Creatinine and Glome rular filtration rate.predicted panel - Serum, Plasma or Blood [facility] ECG 12 lead STAT ECG 12 lead STA T ECG STAT 09/29/2023 7:[address] [facility] Service Area Work Phone: Eosinophil percent differential count [facility] Eosinophils [#/volum e] in Blood [facility] Eosinophils/100 leukocytes in Blood by Automated count [facility] Erythrocyte distribu tion width [Ratio] by Automated count [facility] Erythrocyte mean corpuscular volume determination [facility] Erythrocytes [#/volu me] in Blood [facility] Erythrocytes [#/volu me] in Blood [facility] Glucose [Mass/volume ] in Serum or Plasma [facility] Hematocrit [Volume Fraction] of Blood [facility] Hematocrit [Volume Fraction] of Blood [facility] Hemoglobin [Mass/vol ume] in Blood [facility] Hemoglobin [Mass/vol ume] in Blood [facility] Hemoglobin distribut ion, width determination [facility] ICD BIV GENERATOR CH GERTRUDSI OUT ICD BIV GENERATOR CHANGE OUT Biventricular implantable cardioverter-defibrilla tor (ICD) in situ Elective replacement of implantable cardioverter-defibrilla tor (ICD) battery required [facility] Work Phone: INR in Platelet poor plasma by Coagulation assay [facility] Leukocytes [#/volume ] corrected for nucleated erythrocytes in Blood by Automated coun [facility] Leukocytes [#/volume ] in Blood [facility] Leukocytes [#/volume ] in Blood [facility] Lymphocyte count [facility] Lymphocyte percent differential count [facility] Lymphocytes [#/volum e] in Blood by Automated count [facility] Lymphocytes/100 leukocytes in Blood by Automated count [facility] Magnesium measurement [facility] MCH [Entitic mass] b y Automated count [facility] MCHC [Mass/volume] b y Automated count [facility] MCV [Entitic volume] by Automated count [facility] Mean corpuscular hemoglobin concentration determination [facility] Mean corpuscular hemoglobin determination [facility] Measurement of renal function [facility] Monocyte count [facility] Monocyte percent differential count [facility] Monocytes [#/volume] in Blood by Automated count [facility] Monocytes/100 leukoc ytes in Blood by Automated count [facility] Neutrophil count [facility] Neutrophil percent differential count [facility] Neutrophils [#/volum e] in Blood by Automated count [facility] Neutrophils/100 leukocytes in Blood by Automated count [facility] Nucleated erythrocyt es [Presence] in Blood by Automated count [facility] Oxygen therapy [Mini [facility] Data Set] Initiate Oxygen Therapy Protocol Respiratory Care Routine Daily until discontinued starting 10/06/2023 [facility] Comment on above: Daily until discontinued starting 2023 Patient Education [facility] Patient referral [facility] Platelet mean volume [Entitic volume] in Blood by Automated count [facility] Platelet mean volume determination [facility] Platelets [#/volume] in Blood [facility] Platelets [#/volume] in Blood [facility] Potassium [Moles/vol ume] in Serum or Plasma [facility] End: 10-20-2023 Protime-INR Protime-INR Lab Routine Daily for 2 Weeks starting 10/07/2023 until 10/20/2023, 1 completed [facility] Comment on above: Daily for 2 Weeks starting 10/07/2023 un til 10/20/2023, 1 completed End: 09-07-2024 Radiologic exam chest 2 views XR CHEST 2V FRONTAL/LAT Radiology Routine Persistent atrial fibrillation (HCC) 1 Occurrences starting 08/09/2023 until 09/07/2024 [facility] Work Phone: Comment on above: 1 Occurrences starting 08/09/2023 until 09/07/2024 Sodium [Moles/volume ] in Serum or Plasma [facility] End: 10-06-2023 SPECIMEN REJECTION [facility] Comment on above: Once for 1 Occurrences starting 10/06/19 24 until 10/06/2023 Urea nitrogen [Mass/volume] in Serum or Plasma [facility] VLDL cholesterol measurement [facility] XR Humerus - right Views [facility] XR Shoulder - right Views [facility] Immunizations Immunization Date Immunization Notes Care Provider Sherif bailey 12-09-2020 Pfizer-BioNTech COVID-19 Vacc 30 MCG/0.3ML Intramuscular Suspension Nadir Hoskins DO Work Phone: [facility] [facility] 11-18-2020 COVID-19 vaccine, ag e 12+ yr (PFIZER-BIONTECH - PURPLE TOP) David Osei MD Work Phone: [facility] 06-09-2020 pneumococcal polysaccharide vaccine, 23 valent David Osei MD Work Phone: [facility] 06-07-2020 influenza, seasonal, injectable David Osei MD Work Phone: [facility] 06-07-2020 influenza virus vaccine, unspecified formulation David Osei MD Work Phone: [facility] 06-06-2020 influenza, injectabl e, quadrivalent, preservative free Darian Smiley [facility] 06-06-2020 influenza virus vaccine, unspecified formulation Anju Cuevas DMD Work Phone: [facility] 08-31-2019 Influenza, injectabl e, Madin Denise Canine Kidney, preservative free, quadrivalent Darian Smiley [facility] 08-30-2019 influenza virus vaccine, unspecified formulation Nadir Hoskins DO Work Phone: [facility] 250 DO Work Phone: 06-29-2018 influenza, injectabl e, quadrivalent, preservative free David Osei MD Work Phone: [facility] 06-27-2018 influenza virus vaccine, unspecified formulation Nadir Hoskins DO Work Phone: [place] [address] DO Work Phone: 06-17-2018 influenza, injectabl e, quadrivalent, preservative free Jeane Dykes Other [facility] 05-10-2017 influenza, seasonal, injectable, preservative free David Osei MD Work Phone: [facility] 05-03-2017 influenza, injectabl e, quadrivalent, preservative free David Osei MD Work Phone: [facility] 04-30-2017 influenza virus vaccine, unspecified formulation Nadir Hoskins DO Work Phone: [place] [address] DO Work Phone: 05-08-2016 pneumococcal conjuga te vaccine, 13 valent David Osei MD Work Phone: [facility] 04-30-2016 influenza virus vaccine, unspecified formulation Nadir Hoskins DO Work Phone: [facility] 250 DO Work Phone: 04-30-2016 pneumococcal conjuga te vaccine, 7 valent Nadir Hoskins DO Work Phone: [place] [address] DO Work Phone: 04-24-2016 influenza, seasonal, injectable, preservative free David Osei MD Work Phone: [facility] 05-30-2015 influenza virus vaccine, unspecified formulation Nadir Hoskins DO Work Phone: -[facility]ed With [facility] 250 DO Work Phone: 09-18-2013 influenza virus vaccine, unspecified formulation Nadir Hoskins DO Work Phone: -[facility] With [facility] 250 DO Work Phone: 02-05-2013 TD(adult) unspecifie d formulation David Osei MD Work Phone: [facility] 02-05-2013 Td, unspecified formulation Marcelo Champagne [facility] Work Phone: [facility] 08-30-2011 pneumococcal polysaccharide vaccine, 23 valent Nadir Hoskins DO Work Phone: -[facility]ed With [facility] 250 DO Work Phone: influenza virus vaccine, unspecified formulation Nadir Hoskins DO Work Phone: -[facility]erged With [facility] DO Work Phone: Comment on above: 2008 2009 2010 2011 2012 pneumococcal polysaccharide vaccine, 23 valent Ndair Hoskins DO Work Phone: -[facility]erged With [facility] DO Work Phone: Comment on above: 2008 Payers Date Payer Category Payer Private Health Insurance 101 [id number] 2023 Private Health Insurance [facility] DUAL COMPLETE [facility] DUAL COMPLETE [id number] 2023-Present [address] [address] [place] [address] [id number] 2023 Self-pay [id number] 2020 Medicare UHC MEDICARE UHC DUAL COMPLETE HMO SNP [id number] 2020-Present [phone] [address] [place] [address] Medicare [id number]. [id number] 2020 Medicare [id number] [id number]. [id number] 2020 Medicaid MEDICAID [facility] MEDICAID [id number] 2020-Present [phone] [address] [place] [address] Medicaid [id number]. [id number] 2017 Private Health Insurance [id number] 2017 Unknown [id number] 2003 Medicaid [id number]. 1.13.159.2. [id number] 1969 Unknown [id number] 2.16.840.1.828295.3.579.2. 355 1969 Unknown [id number] 2.16.840.1.483494.3.579.2. 355 1969 Unknown [id number] 2.16.840.1.182696.3.579.2. 355 1969 Unknown [id number] 2.16.840.1.936199.3.579.2. 355 1969 Unknown [id number] 2.16.840.1.921834.3.579.2. 355 1969 Unknown [id number] 2.16.840.1.983770.3.579.2. 355 1969 Unknown [id number] 2.16.840.1.803923.3.579.2. 732 1969 Unknown [id number] 2.16.840.1.006312.3.579.2. 593 1969 Unknown [id number] 2.16.840.1.917450.3.579.2. 593 1969 Unknown [id number] 2.16.840.1.474189.3.579.2. 593 1969 Unknown [id number] 2.16.840.1.291373.3.579.2. 593 1969 Unknown [id number] 2.16.840.1.102290.3.579.2. 593 1969 Unknown [id number] 2.16.840.1.366685.3.579.2. 593 1969 Unknown [id number] 2.16.840.1.630963.3.579.2. 593 1969 Unknown [id number] 2.16.840.1.441653.3.579.2. 593 1969 Unknown [id number] 2.16.840.1.024940.3.579.2. 593 1969 Unknown [id number] 2.16.840.1.973846.3.579.2. 593 1969 Unknown [id number] 2.16.840.1.395385.3.579.2. 593 1969 Unknown [id number] 2.16.840.1.106319.3.579.2. 593 1969 Unknown [id number] 2.16.840.1.010323.3.579.2. 593 1969 Unknown [id number] 2.16.840.1.092944.3.579.2. 593 1969 Unknown [id number] 2.16.840.1.938696.3.579.2. 593 1969 Unknown [id number] 2.16.840.1.652338.3.579.2. 593 1969 Unknown [id number] 2.16.840.1.506428.3.579.2. 593 1969 Unknown [id number] 2.16.840.1.229842.3.579.2. 1246 1969 Unknown [id number] 2.16.840.1.255867.3.579.2. 1246 1969 Unknown [id number] 2.16.840.1.468997.3.579.2. 1246 1969 Unknown [id number] 2.16.840.1.306519.3.579.2. 356 1969 Unknown [id number] 2.16.840.1.547248.3.579.2. 727 1969 Unknown [id number] 2.16.840.1.291474.3.579.2. 727 1969 Unknown [id number] 2.16.840.1.238405.3.579.2. 727 1969 Unknown [id number] 2.16.840.1.500276.3.579.2. 727 1969 Unknown [id number] 2.16.840.1.990855.3.579.2. 176 1969 Unknown [id number] 2.16.840.1.152198.3.579.2. 176 1969 Unknown [id number] 2.16.840.1.157730.3.579.2. 176 1969 Unknown [id number] 2.16.840.1.169403.3.579.2. 175 1969 Unknown [id number] 2.16.840.1.798919.3.579.2. 1244 1959 Medicaid [id number] Medicare [id number] Medicare [id number] Medicare Medicare [id number] Private Health Insurance [facility] [id number] Unknown [id number] Unknown Unknown [id number] 2.16.840.1.066353.3.579.2. 531 Unknown [id number] 2.16.840.1.095189.3.579.2. 531 Unknown [id number] 2.16.840.1.570595.3.579.2. 531 Social History Date Type Detail Facility Start: 08-16-2020 End: 03-30-2024 Tobacco smoking status NHIS Ex-smoker (finding) [facility] Start: 1970 Sex Assigned At Female F [facility] Start: 05-20-2021 End: 10-06-2023 No illicit drug use No illicit drug use [facility] Work Phone: Comment on above: QUIT 02/2018; QUIT 02/2018 had res tarted then requit 08/2021; Start: 05-20-2021 End: 09-29-[address] [facility] Smokes tobacco daily [facility] Start: 10-07-2006 End: 08-30-2021 History of tobacco use Cigarette Smoker [facility] Start: 05-20-2021 End: 10-06-2023 Tobacco use and exposure Smokeless tobacco non-user [facility] Start: 05-20-2021 End: 09-29-2023 Alcohol intake Ex-drinker (finding) [facility] Start: 06-17-2020 History SDOH Financial 5 [facility] Start: 06-17-2020 History SDOH Food Worry 1 [facility] Start: 06-17-2020 History SDOH Transport Med 2 [facility] Start: 02-24-2012 Tobacco Comment 5 cigarettes a day [facility] Start: 1970 Sex Assigned At Not on file C [facility] Start: 12-28-2021 End: 01-07-2022 Exposure to SARS-CoV-2 (event) Unable to assess [facility] Start: 05-20-2021 End: 10-06-2023 Sex Assigned At [facility] Work Phone: Start: 10-13-2021 End: 11-11-2023 Tobacco smoking status NHIS Smoker (finding) [facility] Start: 10-13-2021 Alcohol intake Current non-dr artificial intelligence specialist of alcohol (finding) [facility] How hard is it for you to pay for the very basics like food, housing, medical care, and heating Not hard at all [facility] Work Phone: (I/We) worried whether (my/our) food would run out before (I/we) got money to buy more. Never true [facility] Work Phone: Start: 09-02-2023 End: 10-08-2023 Alcohol intake Current drinker of alcohol (finding) [facility] Work Phone: Start: 08-31-2023 Alcohol Comment rare [facility] Work Phone: Start: 08-23-2023 End: 09-29-2023 Exposure to SARS-CoV-2 (event) Not sure [facility] Has the electric, gas, oil, or water company threatened to shut off services in your home in past 12Mo No [employer] Start: 02-05-2013 Alcohol Comment special occasi ons couple drinks [employer] NEGATED: Highlighted row [facility] Medical Equipment Procedure Code Equipment Code Equipment Origin al Text Equipment Identifier Dates [place] Ptfe 1.2 Cm X 10 Cm - [id number] Start: 07-13-2012 Comment on above: Description: pledgets for suture line re inforcement Valve 27mm Therm afix Pericardi - [id number] Start: 07-13-2012 Comment on above: Description: Mitral valve replacement wi th 27 mm Cornell Lang tissue valve Valve Orquidea 3 Commander Lang 26mm Aortic Transcatheter Ultra Low - [id number] Start: 03-17-2021 Defibrillator, Mandrel Press Hand-D, Claria Mri, Surescpeggy, Df1 - [id number] - [id number] Start: 09-29-2023 Goals Date Patient Goal Desired Activity /State Functional Status Date Assessment Result Facility 03-30-2024 Functional status Patient at [facility] [place] Work Phone: 11-25-2020 Functional status Patient at [facility] 11-23-2020 Functional status Patient at [facility] 08-17-2020 Functional status Patient at [facility] 08-17-2020 Functional status Disability Sta tus Patient at Baseline [facility] 06-15-2020 Functional status Patient at [facility] 06-05-2020 Functional status Patient at [facility] Mental Status Date Assessment Result Facility 03-30-2024 Cognitive function Cognitive Sta tus Patient at Baseline [facility] Work Phone: 11-25-2020 Cognitive function Cognitive Sta tus Patient at Baseline [facility] 11-23-2020 Cognitive function Cognitive Sta tus Patient at Baseline [facility] 08-17-2020 Cognitive function Cognitive Sta tus Patient at Baseline [facility] 06-15-2020 Cognitive function Cognitive Sta tus Patient at Baseline [facility] 06-05-2020 Cognitive function Cognitive Sta tus Patient at Baseline [facility] Clinical Notes 06-15-2020 to 03-30-2024 Note Date & Type Note Facility 03-30-2024 Progress note Note Date/Time March 30, 2024 1:38pm [facility] [address] [place] [address] Progress Note Signed Patient: Essence Vincent MR#: [id number] : 1970 Acct:[id number] Age/Sex: 53 / F Adm Date: 4 Loc: Room: [address] [place] [address] Type: ADM INOo Attending Dr: Patrica Mcmahon MD Copies to: ~ Date of Service: 03/30/2024 Progress Narrative Note PROGRESS NOTE Progress Note: Patient was seen evaluated at bedside, she was admitted after midnight by overnight team, refer to H&P for further details, patient remained hemodynamically stable here, denies any chest pain during my encounter today. troponin level has been 17.5 >15.4. Cardiology has been consulted for input, echo pending. Patient reported to staff that she fell at home and hit her head,will get CT head to ensure no intracranial acute pathology. she reports headachewhile here and requested her home meds which resumed. awaiting on further recs from cardiology. Nursing staff reports that pt stated she needs Ativan. I checked her prescriptions for controlled substances and seems that she was refilled Ativan last in February and states her PCP would not give her more refills.She seems under life stressors, would recommend outpatient psych evaluation and follow up post discharge. Documented By: Patrica Mcmahon MD 03/30/24 13 34 Signed By: <Electronically signed by Patrica Mcmahon MD> 03/30/24 [id number] [facility] Work Phone: 1(973) 104-918608-01-2024 History and physical note Author Kendrick Jorgensen [facility] March 30, 2024 3:54am Note Date/Time March 30, 2024 2:3 6am [facility] [address] [place] [address] Hospitalist H&P Signed Patient: Essence Vincent MR#: [id number] : 1970 Acct:[id number] Age/Sex: 53 / F Adm Date: 4 Loc: Room: [address] [place] [address] Type: ADM INOo Attending Dr: Kendrick Jorgensen MD Copies to: MD Amanda Quiroga APRN, PEDRO Russell APRN~ HPI DATE OF EXAMINATION: 03/30/24 CHIEF COMPLAINT: palpitations HISTORY OF PRESENT ILLNESS: Ms. Vincent is a 53-year-old female with a PMH of AMI, VT, SVT, AICD placement, mitral valve replacement, A-fib, hypothyroidism, DVT, atrial thrombus, warfarin therapy, CHF presented to the emergency room [facility] for complaints of palpitations. Patient states I think I had a serious panic attack. States she had some palpitations which brought her to the emergency room. She reports that she had a new PCP and she had been taking Ativan 0.5 mg 3 times a day and the provider would not refill the prescription. She states that she has been seeing psychiatry services in [place] for anxiety. Reports she lost her parents and her brother over the last year and a half to cancer. States her palpitations began about an hour before she presented to the emergency room, denies chest pain, states she felt pressure in her head and her ears because she knew her blood pressure was up. She states she gets a medicinepack from her pharmacy for her medications and she does not believe that her metoprolol has been in this pack but she does not know for how long. She also reports having watery green diarrhea for the last 2 to 3 days, she felt nauseated while she was having the palpitations, denies vomiting. She reports that she does smoke, 5 cigarettes a day, denies alcohol use, does use marijuana. 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 Robles. States they are just watching them for now. EKG with intermittent AV paced beats. Chest x-ray pending final read. CBC with an H&H of 9.3/31.3, microcytic, hypochromic. INR is subtherapeutic at 1.1. BMPwith a potassium of 3.3, BUN 27, glucose 126. Troponin 14, BNP 256. UA with light yellow, clear urine, trace of occult blood, 3+ leukocytes, 2+ bacteria, 10-19 WBCs, contamination with 10-19 squamous epithelial cells, culture is pending. Tox screen is positive for barbiturates and marijuana-she is on kopyuytqjh-xwauvtbsxweti-pkkzycnp as needed for headaches. She was medicated with lorazepam, potassium, Nitropaste 1 inch. She will be admitted as observation to the [facility] telemetry floor. Review of Systems Review of Systems Review of systems: A 10 point review of systems was obtained, negative unless noted in the HPI or below. [facility] Medical History (Updated 03/30/24 @ 03:17 by Kristyn Russell APRN) Paroxysmal A-fib Deep vein thrombosis (DVT) Presence of combination internal cardiac defibrillator (ICD) and pacemaker Ventricular tachycardia (08/04/18) Hypotension CHF (congestive heart failure) Atrial thrombus Large clot found in heart at [facility]. COPD (chronic obstructive pulmonary disease) Myocardial infarction SVT (supraventricular tachycardia) Depression GERD (gastroesophageal reflux disease) Presence of combination internal cardiac defibrillator (ICD) and pacemaker Surgical History History of tonsillectomy and adenoidectomy Hx of hysterectomy Hx of cholecystectomy History of back surgery History of open heart surgery Hx laparoscopic cholecystectomy Hx of appendectomy Previous back surgery AICD (automatic cardioverter/defibrillator) present H/O mitral valve replacement Hx of CABG Hx of prior ablation treatment Family History (Updated 03/30/24 @ 02:32 by Kristyn Russell APRN) Mother Small cell B-cell lymphoma Father Cancer pancreatic with mets to lungs Heart disease Brother Cancer oral Social History Smoking Status: Light tobacco smoker (5 cigarettes daily) Tobacco Type: cigarettes Substance Use Type: None and Marijuana Meds Medications and Allergies Allergies erythromycin base Allergy (Unknown, Verified 03/29/24 23:37) Vomiting latex Allergy (Unknown, Verified 03/29/24 23:37) Hives fentanyl Allergy (Verified 03/29/24 23:37) Palpitations morphine Allergy (Verified 03/29/24 23:37) Vomiting ondansetron [From Zofran] Allergy (Verified 03/29/24 23:37) Agitated adhesive tape Adverse Reaction (Verified 03/29/24 23:37) Redness of Skin Home Medications metoprolol succinate 100 mg tablet,extended release 24 hr 100 mg PO DAILY 30 days #30 tabs 11/16/21 [Rx Confirmed 03/30/24] isosorbide mononitrate 30 mg tablet,extended release 24 hr 30 mg PO DAILY #14 tabs 11/22/21 [Rx Confirmed 03/30/24] amiodarone 200 mg tablet 200 mg PO QAM 01/24/24 [History Confirmed 03/30/24] atorvastatin 80 mg tablet (Lipitor) 80 mg PO HS 90 days #90 tabs 02/16/24 [Rx Confirmed 03/30/24] levothyroxine 75 mcg tablet 75 mcg PO DAILY 90 days #90 tabs 02/16/24 [Rx Confirmed 03/30/24] omeprazole 40 mg capsule,delayed release 40 mg PO DAILY 90 days #90 caps 02/16/24 [Rx Confirmed 03/30/24] albuterol sulfate 90 mcg/actuation aerosol inhaler 1 puff inhalation Q4HR PRN shortness of breath or wheezing 02/17/24 [History Confirmed 03/30/24] toiiewdqpj-ritscvfueptuu-jvtglaox 50 mg-300 mg-40 mg capsule (Fioricet) 1 cap POQ4HR PRN Headache 02/17/24 [History Confirmed 03/30/24] memantine 28 mg capsule sprinkle,extended release 24hr 28 mg PO DAILY 02/17/24 [History Confirmed 03/30/24] multivitamin 1 tab PO DAILY 02/17/24 [History Confirmed 03/30/24] nitroglycerin 0.4 mg sublingual tablet 0.4 mg sublingual DIRECTED 02/17/24 [History Confirmed 03/30/24] warfarin 2 mg tablet See Rx Instructions PO .COMPLEX 02/17/24 [History Confirmed 03/30/24] potassium chloride 10 mEq capsule,extended release 10 meq PO BID 90 days #180 caps 02/18/24 [Rx Confirmed 03/30/24] ropinirole 0.25 mg tablet See Rx Instructions PO DIRECTED 90 days #270 tabs 02/23/24 [Rx Confirmed 03/30/24] torsemide 20 mg tablet 40 mg PO DAILY 03/30/24 [History Confirmed 03/30/24] Exam Physical Exam Vital Signs: Temp Pulse Resp BP Pulse Ox O2 Del Method 98.0 F 80 16 157/68 H 99 Room Air 03/29/24 23:30 03/30/24 02:07 03/30/24 02:05 03/30/24 02:07 03/30/24 02:05 03/30/24 02:05 Narrative: CONST- Appears well -developed and well nourished. Older than stated age HEAD - Normocephalic and atraumatic EENT-Sclera nonicteric, conjunctive are non-erythemic, moist oral mucosa, pharynx clear, poor dentition NECK-Supple, no cervical lymphadenopathy CARDIAC-normal rate, regular rhythm, S1 & S2. PULM-diminished, fine crackles bilateral posterior mid to base, RA, no accessorymuscle use or cough noted ABD - Soft. Bowel sounds are normal. No distention. No tenderness EXTREM- +1 pitting edema BLE calves, nontender SKIN- W/D good turgor, scabbed area to right cheek, forehead MS- MAEX4 spontaneously with equal with equal strength NEURO- A&Ox3 speech clear and tongue midline, equal facial symmetry, no focal motor deficits PSYCH-Mood, affect, and behavior appropriate Results - Hospitalist H&P Lab Results Labs: Laboratory Last Values Corrected WBC 9.7 X10E3/uL (3.8-11.6) 03/30/24 00:27 Uncorrected WBC Count 9.7 x10E3/uL (3.8-11.6) 03/30/24 00:27 RBC 5.00 X10E6/uL (3.60-5.00) 03/30/24 00:27 Hgb 9.3 g/dL (11.8-15.4) L 03/30/24 00:27 Hct 31.3 % (34.0-46.4) L 03/30/24 00:27 MCV 62.7 fl (80-100) L 03/30/24 00:27 MCH 18.6 pg (24.7-34.3) L 03/30/24 00:27 MCHC 29.8 g/dL (32.0-35.0) L 03/30/24 00:27 RDW 20.5 % (11.9-15.3) H 03/30/24 00:27 Plt Count 264 x10E3/uL (150-450) 03/30/24 00:27 MPV 8.7 fl (6.3-10.7) 03/30/24 00:27 Neut % (Auto) N/A 03/30/24 00:27 Lymph % (Auto) N/A 03/30/24 00:27 [place] % (Auto) N/A 03/30/24 00:27 Eos % (Auto) N/A 03/30/24 00:27 Baso % (Auto) N/A 03/30/24 00:27 Nucleat RBC Rel Count N/A 03/30/24 00:27 Neut # (Auto) N/A 03/30/24 00:27 Lymph # (Auto) N/A 03/30/24 00:27 [place] # (Auto) N/A 03/30/24 00:27 Eos # (Auto) N/A 03/30/24 00:27 Baso # (Auto) N/A 03/30/24 00:27 Lymphocytes % 13 % (18-42) L 03/30/24 00:27 Monocytes % 5 % (2-11) 03/30/24 00:27 Eosinophils % 2 % (1-3) 03/30/24 00:27 Basophils % 2 % (0-2) 03/30/24 00:27 Myelocytes % 1 % (0-0) H 03/30/24 00:27 Segmented Neutrophils 77 % (50-70) H 03/30/24 00: Monocyte Dist Width 16.64 % (0.00-20.00) 03/30/24 00:27 Platelet Estimate Normal (Normal) 03/30/24: Giant Platelets 5 /100 WBC 03/30/24 00: Plt Morphology Comment Normal (Normal) 03/30/24: RBC Morphology N/A 03/30/24 00: Polychromasia Slight 03/30/24: Hypochromasia Marked 03/30/24: Poikilocytosis Moderate 03/30/24: Anisocytosis Marked 03/30/24 00: Microcytosis Marked 03/30/24 00: Sickle Cells Slight (None Seen) H 03/30/24 00: Target Cells Slight 03/30/24: Tear Drop Cells Slight 03/30/24 00: Ovalocytes Slight 03/30/24 00: Schistocytes Slight 03/30/24 00: PT 12.9 Seconds (9.0-12.9) 03/30/24: INR 1.1 03/30/24: APTT 25.3 Seconds (25.1-36.5) 03/30/24 00: PHA Creatinine Clear 58.60 03/30/24 00: Sodium 137 mmol/L (136-145) 03/30/24: Potassium 3.3 mmol/L (3.5-5.1) L 03/30/24: Chloride 103 mmol/L (98-107) 03/30/24: Carbon Dioxide 24.9 mmol/L (21.0-31.0) 03/30/24: Anion Gap 12.4 mEq/L (6.0-15.0) 03/30/24 00: BUN 27 mg/dL (7-25) H 03/30/24 00: Creatinine 1.06 mg/dL (0.60-1.20) 03/30/24 00: Est GFR (CKD-EPI) > 60.0 mL/Min 03/30/24 00: Glucose 126 mg/dL (70-100) H 03/30/24 00: Calcium 8.8 mg/dL (8.6-10.3) 03/30/24 00:27 Total Creatine Kinase 93 U/L (30-223) 03/30/24 00:27 Troponin I High Sens 14.0 pg/mL (0.0-15.0) 03/30/24 00:27 B-Natriuretic Peptide 256.0 pg/mL (5-100) H 03/30/24 00:27 Urine Color Light-yellow (Yellow) 03/30/24 02:00 Urine Appearance Clear (Clear) 03/30/24 02:00 Urine pH 6.5 (5.0-9.0) 03/30/24 02:00 Ur Specific Deal 1.016 (1.001-1.030) 03/30/24 02:00 Urine Protein Negative mg/dL (Negative) 03/30/24 02:00 Urine Glucose (UA) Normal mg/dL (Normal) 03/30/24 02:00 Urine Ketones Negative (Negative) 03/30/24 02:00 Urine Occult Blood Trace (Negative) H 03/30/24 02:00 Urine Nitrite Negative (Negative) 03/30/24 02:00 Urine Bilirubin Negative (Negative) 03/30/24 02:00 Urine Urobilinogen Normal mg/dL (Normal) 03/30/24 02:00 Ur Leukocyte Esterase 3+ (Negative) H 03/30/24 02:00 Urine RBC 1-2 /HPF (0-4) 03/30/24 02:00 Urine WBC 10-19 /HPF (0-4) H 03/30/24 02:00 Ur Squamous Epith Cells 10-19 /HPF (0-2) H 03/30/24 02:00 Urine Bacteria 2+ /HPF (None Seen) H 03/30/24 02:00 Hyaline Casts 9-19 /LPF (0-8) H 03/30/24 02:00 Urine Mucus Rare /LPF 03/30/24 02:00 Urine Opiates Screen Negative (Negative) 03/30/24 02:00 Ur Barbiturates Screen Positive (Negative) H 03/30/24 02:00 Ur Phencyclidine Scrn Negative (Negative) 03/30/24 02:00 Ur Amphetamines Screen Negative (Negative) 03/30/24 02:00 U Benzodiazepines Scrn Negative (Negative) 03/30/24 02:00 Urine Cocaine Screen Negative (Negative) 03/30/24 02:00 U Marijuana (THC) Screen Positive (Negative) H 03/30/24 02:00 Slides for Path Review Ordered path review 03/30/24 00:27 Assessment & Plan Assessment/Plan (1) Chest pain: (2) Heart palpitations: (3) Hypokalemia: (4) Subtherapeutic international normalized ratio (INR): (5) Congestive heart failure: (6) Generalized anxiety disorder: (7) COPD (chronic obstructive pulmonary disease): (8) Iron deficiency anemia: Plan Chest pain-resolved Palpitations ? Trend troponin ? Consult cardiology ? Heart score 6 ? Monitor telemetry ? Lipid profile, TSH in a.m. ? Low-dose aspirin daily, metoprolol, atorvastatin, isosorbide Hypokalemia?current level 3.3?repleted in ER, likely due to diuretic and diarrhea ? BMP, magnesium in a.m. ? Potassium chloride twice daily ? If diarrhea continues please send down for stool culture, C. difficile Subtherapeutic INR?current level 1.1 ? Warfarin?pharmacy to dose Congestive heart failure?last EF 25% ? Echo in a.m. ? Follows with Dr. Mazariegos in [place] ? Patient reports she takes torsemide daily at home Generalized anxiety disorder ? Lorazepam twice daily as needed Iron deficiency anemia?current H&H 9.3/31.3, patient reports she does not take iron at home ? Iron studies A-fib?amiodarone, warfarin COPD?albuterol as needed RLS?ropinirole Hypothyroidism?TSH in a.m., levothyroxine DVT PPx-SCDs, warfarin Diet order-heart healthy CODE STATUS-full code I have seen the patient independently and evaluated the patient and agree with the history, physical exam, assessment and plan by nurse practitioner. - Kendrick Jorgensen MD - Internal Medicine IP vs OBS Justification Based on differential dx, clinical care plan, and risk of adverse events, if untreated, in my clinical judgement this patient requires an acute care setting as: OBSERVATION because of an expectation of an under 2 midnight stay. Estimated length of stay (# of days): 1 Documented By: Kristyn Russell APRN 03/30/24 0231 Signed By: <Electronically signed by PETE Russell> 03/30/24 0357 <Electronically signed by Kendrick Jorgensen MD> 03/30/24 0354 [facility] Work Phone: 1(825) 460-415305-09-2024 NoteDate of Service: 01/04/2024 Procedure: Diagnostic cerebral angiogram Patient arrived to [...] ([place]) cerebral angiogram --Right common femoral artery (WARPING MILL OPERATOR) angiogram Neurointerventionalist: Pedro Fan MD Sellers: Garry New MD Contrast: 98 cc of [...] with a micropuncture technique, and a 5 Swedish intravascular sheath wasplaced within the right common femoral artery, establishing arterial access using modified Seldinger technique. The ultrasound guidance image was not captured and archived in the patient's record. 2000u of heparin IV was administered. A 5 Swedish multipurpose catheter was then advanced over a [...] the distal branches. Inspection of the remaining rightinternal carotid circulation revealed no other evidence of cerebral aneurysm, arteriovenous malformation, or arterial stenosis. Capillary and venous phase images were also unremarkable, with no evidence of veno-occlusive disease. Left CCA technique: The left common carotid artery was selectively catheterized under fluoroscopic guidance and digitalsubtraction angiography images were obtained in biplane projections [...] The left internal marquez (more content not included)...[facility]02-13-2024 History of Present illness Narrative* Heydi Jiang, [facility] - 10/12/2023 3:50 PM EST Patient seen in person in Medication Management [...] Spent (min): 20 Heydi Jiang, PharmD PGY1 Broiler Manager [facility] History of Present illness Narrative* Marcelo Champagne RP - 10/11/2023 1:30 PM EST Patient seen in person in Medication Management [...] Time Spent (min): 20 documented in this encounterB[facility] History of Present illness Narrative* Savannah Chang - 10/07/2023 11:37 AM EST Pt does not want Butalbital/APAP/Caffeine 50/325/40 tabs on file at [facility].Pt in need of Requip miscommunication between pt/nurse/prescriber pt will specify which home pharmacy to have Requip sent to is ready for discharge 10/07/23 11:36am kbg Butalbital/APAP/Caffeine 50/325/40 tabs $18.37 10/07/23 11:15am out for delivery kbg pt has copay unable to enter room due to restrictions unable to reach pt via room phone or cell to discuss payment * Marcelo Raman [facility] - 10/07/2023 8:44 AM EST Pharmacy Note Warfarin Consult follow-up Recent Labs 10/05/23 1950 10/06/23 02110/07/23 0519 INR 1.1 1.1 1.1 Recent Labs [...] 7.5 mg today. Daily PT/INR while inpatient. Javy SelfPh. 10/07/2023 8:44 AM * Yvette Alatorre RN - 10/06/2023 7:37 PM EST lilly Johnston, called for an update. All questions answered. * Yvette Alatorre RN - 10/06/2023 7:30 PM EST Spoke to Neurosurgery, Dr. Randhawa, for consult on carotid aneurysm. MD was informed on CTA results and patient status. MD states they don't do on site consults at this hospital. If needed to be seen STAT they can set up for transfer. If it can wait he will see patient OP in office, just give patient his information. MD can call him tomorrow if they would like to discuss, otherwise have her make appt. * Savannah Chang - 10/06/2023 4:56 PM EST CLINICAL PHARMACY NOTE: MEDS TO BEDS Total # of Prescriptions Filled: 1 The following medications were delivered to the patient: Enoxaparin 80mg/0.8ml injection(Generic Lovenox) Additional Documentation: delivered to pt room confirmed w/Nurse Yvette present will put with ptbelongings (No Outpt Pharm room entry) 10/06/23 4:56pm kbg * Yvette Alatorre RN - 10/06/2023 2:29 PM EST Pharmacy from [place] [facility] came to floor to give patient a card for an appt on 10/08/23 at 10:30am. Card was given to patient. * Yvette Alatorre RN - 10/06/2023 2:28 PM EST Spoke with Savannah from OP pharmacy they are working on getting Lovenox for discharge as they are lowin stock. She will get back to bond writer. * Yvette Alatorre RN - 10/06/2023 1:18 PM EST Hearing Healthcare Practitioner asked patient why she has been off her home meds. She states she did mail order and it took them 4 days to get. She is now finding a local pharmacy. Patient asked about her coumadin clinic shejust moved here and does not have one she has been just taking her coumadin without checking INR's,last check was over a month ago. Patient is agreeable to be compliant with her niece taking her now that she is living with her. Patient states she does not drive but her niece will take her. * Yvette Alatorre RN - 10/06/2023 1:17 PM EST Patient sates she has given herself shots before. Patient gave herself her Lovenox today with bond writer in room to help educate. Patient did well and is comfortable with self injecting. * Nadir Madrigal RPH - 10/06/2023 9:53 AM EST Pharmacy Note Warfarin Consult follow-up Recent Labs 10/05/23 1950 10/06/23 0219 INR 1.1 1.1 Recent Labs 10/05/23 1950 10/06/23 0219 HGB 10.5* 10.9* HCT 35.7* 38.6 PLT 268 226 Significant Drug-Drug Interactions: Current warfarin drug-drug interactions: amiodarone, prozac, synthroid, requip, trazodone, fioricet Date INR Dose given previous day Dose scheduled for today 10/06/2023 1.1 none 7.5 mg Notes: Per [facility] Medication Management office patient STEM PROCESSING MACHINE OPERATOR dosing was 7.5 mg ONE day per week. All other days are 5 mg. Patient noncompliant with office and has not been seen for 1 year. Office Number [phone] Per Gauri Rey Daily PT/INR while inpatient. Nadir Madrigal PharmD. [facility] 10/06/2023 9:53 AM * Eddie Farias [facility] - 10/06/2023 4:24 AM EST Pharmacy Note Warfarin Consult Essence Vincent is [...] for the consult. Will continue to follow. * Azalea Cai APRN - WOOD GLUER - 10/05/2023 11:20 PM EST Essence Vincent is a 53 y.o. Non- [...] CNP 10/05/2023 11:20 PM documented in this encounterB[facility]24 Note.ICD System pulse generator replacement Procedures: SENIOR CLINICAL RESEARCH ASSOCIATE-D generator replacement (77086) Pocket revision with Tyrx pouch, 25526 - 59 (distinct procedure), Defibrillator generator threshold testing 38034, Pre and post ICD analysis and reprogramming 70125 x 2 Patient history: Please refer to [...] of infection. The patient should call the manuscripts curator immediately if symptoms recur, or for any problems. The patient and family (friend with HIPAA consent) have been instructed accordingly. Follow up in Clinic in 1 week for wound check. See complete procedural log and parameters. [id number] Hospital Discharge instructions* Discharge Instructions* Yessi Don APRN-WOOD GLUER - 09/29/2023 9:39 AM EST Images from [...] have been instructed by the device company claim service representative regarding remote home monitoring. There are multiple [...] your after visit summary documented in [facility]White [facility] Work Phone: 1(886) 469-335001-31-2024 Note* Pre-Sedation Documentation - Margareth Nunez MD - 09/29/2023 7:54 AM EST Sedation Plan ASA 2 Mallampati class: II. Risks, benefits, and alternatives discussed with patient. [facility] Work Phone: 1(113) 671-734801-31-2024 Miscellaneous Notes* Pre-Sedation Documentation - Margareth Nunez MD - 09/29/2023 7:54 AM EST Sedation Plan ASA 2 Mallampati class: II. Risks, benefits, and alternatives discussed with patient. documented in this [facility] Work Phone: 1(652) 585-474501-31-2024 Attending History and physical note* Margareth Nunez MD - 09/29/2023 7:52 AM EST H&P reviewed. The patient was examined and there are no changes to the H&P. She is here for generator change. She has chronic lower extremity edema and exertional dyspnea. Shared decision making performed. [place] decision tool. All questions answered. Econsent obtained. Source Note - Jameel Valenzuela APRN-WOOD GLUER - 09/02/2023 2:30 PM EST CARDIOLOGY OFFICE [...] ventricular tachycardia status post ablations through the [facility] with the most recent procedure being approximately [...] recently the device was upgraded to a SENIOR CLINICAL RESEARCH ASSOCIATE-D device on September 23, 2016 for the [...] 80 mg tablet 1 tablet, oral, Nightly plxgmbekfn-lmivprzrtgrcj-oani (Fioricet) 50-300-40 mg capsule 1 capsule, oral, [...] 80 bpm. Prolonged AV conduction with a MO interval of 300 ms. QRS durations 136 ms, QT 482 ms, QTc 555 ms. ICD interrogationdated September 02, 2023 reveals atrial pacing 85.67% and ventricular pacing 96.06%. Estimated batterylongevity is 1 month. The device reached elective replacement indicator on July 24, 2023. The Optivol fluid index has been elevated ongoing since February 18, 2023. No atrial or ventricular arrhythmic events were noted. Sensing and capture thresholds are within normal limits. JOVITA dated January 212revealed an ejection fraction of 20 to 25%, moderate biatrial enlargement, status post mitral valverepair, severe TR, moderate PFO, plaque in the descending aorta. ASSESSMENT AND PLAN Clinical impressions: 1. Ischemic cardiomyopathy with a left ventricular ejection fraction of 20 to 25% per transesophageal echo dated January 21, 2022, [place] Heart Association class III, stage C heart [...] post 3 VT ablation procedures at the [facility] and maintained on a combination of amiodarone, metoprolol, and magnesium oxide for ventricular arrhythmia suppression. (Medtronic Viva XT SENIOR CLINICAL RESEARCH ASSOCIATE-D). 4. Dyslipidemia on statin. 5. Paroxysmal atrial [...] the plan. Patient will discontinue the furosemide asshe states she is not experiencing a good diuretic effect. She will be placed on Demadex 20 mg. Shewill take 2 tablets daily for 3 days then decrease to 1 tablet daily. Patient is on potassium chloride 20 mEq daily. She will increase the potassium chloride to 20 mill equivalents twice a day x 3 days then resume potassium chloride 20 mill equivalents daily. She will obtain a basic metabolic paneland BNP in 1 week for reevaluation of heart failure status. 2. The patient will be scheduled for outpatient AV biventricular ICD generator change with Dr. Scanlon 2 weeks once the patient is euvolemic. [...] of motion. Weight lifting restricted to 10 poundson the affected side for one month then 35 pounds (push, pull, lift, or carry) lifelong. MRI may beobtained one month post implant on all MRI compatible devices. Notify [facility] for signs of infection including fever, chills, or purulent drainage. 5. Discussed routine device follow up is scheduled every 3-4 months. Inclinic checks alternate withremote (home) checks. Inclinic checks will be scheduled [...] states that she does follow with a six color press operator for her COPD but has not had [...] software was utilized to prepare this document. [facility] Work Phone: 1(903) 630-996901-31-2024 History and physical note* Margareth Nunez MD - 09/29/2023 7:52 AM EST H&P reviewed. The patient was examined and there are no changes to the H&P. She is here for generator change. She has chronic lower extremity edema and exertional dyspnea. Shared decision making performed. [place] decision tool. All questions answered. Econsent obtained. Source Note - Jameel Garcia Bianca, SHOE STITCHER-WOOD GLUER - 09/02/2023 2:30 PM EST CARDIOLOGY OFFICE [...] ventricular tachycardia status post ablations through the [facility] with the most recent procedure being approximately [...] recently the device was upgraded to a SENIOR CLINICAL RESEARCH ASSOCIATE-D device on September 23, 2016 for the [...] 80 mg tablet 1 tablet, oral, Nightly vvqcbcsrwy-jqefysymlmngw-jswe (Fioricet) 50-300-40 mg capsule 1 capsule, oral, [...] 80 bpm. Prolonged AV conduction with a MO interval of 300 ms. QRS durations 136 ms, QT 482 ms, QTc 555 ms. ICD interrogationdated September 02, 2023 reveals atrial pacing 85.67% and ventricular pacing 96.06%. Estimated batterylongevity is 1 month. The device reached elective replacement indicator on July 24, 2023. The Optivol fluid index has been elevated ongoing since February 18, 2023. No atrial or ventricular arrhythmic events were noted. Sensing and capture thresholds are within normal limits. JOVITA dated January 212revealed an ejection fraction of 20 to 25%, moderate biatrial enlargement, status post mitral valverepair, severe TR, moderate PFO, plaque in the descending aorta. ASSESSMENT AND PLAN Clinical impressions: 1. Ischemic cardiomyopathy with a left ventricular ejection fraction of 20 to 25% per transesophageal echo dated January 21, 2022, [place] Heart Association class III, stage C heart [...] post 3 VT ablation procedures at the [facility] and maintained on a combination of amiodarone, metoprolol, and magnesium oxide for ventricular arrhythmia suppression. (Medtronic Viva XT SENIOR CLINICAL RESEARCH ASSOCIATE-D). 4. Dyslipidemia on statin. 5. Paroxysmal atrial [...] the plan. Patient will discontinue the furosemide asshe states she is not experiencing a good diuretic effect. She will be placed on Demadex 20 mg. Shewill take 2 tablets daily for 3 days then decrease to 1 tablet daily. Patient is on potassium chloride 20 mEq daily. She will increase the potassium chloride to 20 mill equivalents twice a day x 3 days then resume potassium chloride 20 mill equivalents daily. She will obtain a basic metabolic paneland BNP in 1 week for reevaluation of heart failure status. 2. The patient will be scheduled for outpatient AV biventricular ICD generator change with Dr. Scanlon 2 weeks once the patient is euvolemic. [...] of motion. Weight lifting restricted to 10 poundson the affected side for one month then 35 pounds (push, pull, lift, or carry) lifelong. MRI may beobtained one month post implant on all MRI compatible devices. Notify [facility] for signs of infection including fever, chills, or purulent drainage. 5. Discussed routine device follow up is scheduled every 3-4 months. Inclinic checks alternate withremote (home) checks. Inclinic checks will be scheduled [...] states that she does follow with a six color press operator for her COPD but has not had [...] to prepare this document. documented in this [facility] Work Phone: 1(689) 648-240601-29-2024 Evaluation note* Encounter Date Diagnosis Assessment Notes Treatment Notes Treatment Clinical Notes Aug, Generalized anxiety disorder (ICD-10 - F41.1) [employer] Other 01-24-2024 Evaluation note* Encounter Date Diagnosis Assessment Notes Treatment Notes Treatment Clinical Notes Aug, Migraine without status migrainosus, not intractable, unspecified migraine type (ICD-10 - G43.909) last filled 07/27/2023 [employer] Other 01-24-2024 Evaluation note* Encounter Date Diagnosis Assessment Notes Treatment Notes Treatment Clinical Notes Aug, Migraine without status migrainosus, not intractable, unspecified migraine type (ICD-10 - G43.909) [employer] Other 01-02-2024 Evaluation note* Encounter Date Diagnosis Assessment Notes Treatment Notes Treatment Clinical Notes Aug, Generalized anxiety disorder (ICD-10 - F41.1) [facility] [employer] Other 11-29-2023 Miscellaneous Notes* Telephone Encounter - [...] OP visit in Epic note, left voicemail. documented in this encounterC[facility] NotePROCEDURE: XR HUMERUS RT MIN 2 [...] Electronically authenticated by: JC BRAVO Date: 2023-01-27 11:03[facility]05-31-2023 NotePROCEDURE: XR HUMERUS RT MIN [...] Electronically authenticated by: JC BRAVO Date: 2023-01-27 11:03[facility]05-25-2022 NotePre-procedure Verification and Time Out: [...] Findings: grossly normal anatomy Procedure performed by: hi Flat Locker(s): none Estimated Blood Loss (mL): none Specimen: [...] of infection. The patient should call the manuscripts curator immediately if symptoms recur, or for any [...] right interatrial septum sites were mapped with xaerz-ov-ftjwh electroanatomical activation mapping and entrainment mapping from both the right atrial catheter and the ablation catheter. An Biocontrol mapping system was used to create a 3D image of the right atrium and cavotricuspid isthmus. Mapping was performed during sinus rhythm and atrial pacing. 4. Catheter RF ablation. Applications were delivered via a generator to (more content not included)...[facility]05-25-2022 NoteHistory of Present Illness: /Lactating: Are You [...] - Surgical Update < 30 days 21-Jan-2022 12:[address] [place], [place] 1315805-25-2022 NoteElectrophysiology Procedure TestingPlease click on the link to view the study images (Normal)- Merged With [facility] [address] [place] Work Phone: 1(749) 202-322305-25-2022 NoteElectrophysiology Procedure Testing Please click on the link to view the study images (Normal)-Merged With [facility] [address] DO Work Phone: 1(103) [phone] NoteHistory & Physical Reviewed: /Lactating: Are You [...] From Patient Profile - Preop v3 21-Jan-2022 10:28[facility]05-25-2022 NoteHistory of Present Illness: Admission Reason: Atrial [...] JOVITA/EPS/possible ablation. She is here today at [facility] for these procedures. Patient denies recent complaints [...] Flutter Plan for Impressi (more content not included)...[facility] 12-23-2021 Evaluation note* Encounter Date Diagnosis Assessment [...] CELESTINA Pugh. Seen by Memo Fuchs PharmD [employer] Other 04-20-2022 Evaluation note* Encounter Date Diagnosis Assessment Notes Treatment Notes Treatment Clinical Notes Nov, Medication monitoring encounter (ICD-10 - Z51.81) Referring Provider: Robe Alonso (new re will be Dr. Rojas [phone]) Diagnosis: Thrombus, Atrial Fibrillation INR Goal: 2-3 [...] referral is faxed to CELESTINA Butler. Called [facility] [phone], spoke with Amanda SUMNER RN. [facility] and take her as a patient. [facility] fax number is [phone]. [facility] Order: draw PT/INR on Completed by: Susan Euceda RN [employer] Other 04-13-2022 Evaluation note* Encounter Date Diagnosis Assessment Notes Treatment Notes Treatment Clinical Notes Nov, Medication monitoring encounter (ICD-10 - Z51.81) Referring Provider: Robe Alonso (new re will be Dr. Rojas [phone]) Diagnosis: Thrombus, Atrial Fibrillation INR Goal: 2-3 INR: 1.2 ( 12/09 ) Tablet Size: 5mg Wednesday: 5mg Wednesday: 7.5mg Wednesday: 5mg Wednesday: 7.5mg : 5mg Wednesday: 7.5mg Wednesday: 5mg Total Weekly Dose: 42.5mg [facility] was called, LVM at 8:38 asking for [...] weekly at this time and to notify [facility] if she cannot make appointment. Patient will have INR drawn in clinic. It is recommended for patient to come in for appointments. Med list is updated. A Bridge Recommendation is faxed to PCP. Called [facility] [phone], m to return call. [facility] fax number is [phone]. [facility] Order: draw PT/INR on Completed by: Susan Euceda RN [employer] Other 03-23-2022 Evaluation note* Encounter Date Diagnosis [...] the above instructions. Patient repeated correctly. Called [facility] [phone], lvm with instructions. [facility] fax number is [phone]. This Order is faxed. [facility] Order: draw PT/INR on Thursday, November 25, 2021 Completed by: Susan Euceda RN [employer] Other 03-15-2022 Evaluation note* Encounter Date Diagnosis [...] is drinking Boost supplement once daily. Called [facility] [phone], lvm for nurse with Kristoferdoc Amanda. LVM on Amanda's phone. Amanda returned call, discussed the above instructions. [facility] fax number is [phone]. This Order is faxed. [facility] Order: draw PT/INR on Thursday, November 18, 2021 Completed by: Susan Euceda RN [employer] Other 03-09-2022 Evaluation note* Encounter Date Diagnosis Assessment Notes Treatment Notes Treatment Clinical Notes Oct, Medication monitoring encounter (ICD-10 - Z51.81) Referring Provider: Robe Alonso Diagnosis: Thrombus, Atrial Fibrillation INR Goal: 2-3 INR: 1.11 ([facility] 11/05/21) Tablet Size: 5mg Wednesday: 5mg [...] AC plan. Patient states she will call [facility] after talking to family members for rides. Called [facility] for a return call. Addendum: Nurse Adriana SUMNER from [facility] returned call and stated understanding to instructions. Phone for HH [phone] ext [phone], nurse with Vera. [facility] fax number is [phone] per pt. Home Health Order: draw INR on Thursday, November 11, 2021 Completed by: Susan Euceda RN [employer] Other 03-02-2022 Evaluation note* Encounter Date Diagnosis [...] is made aware of bleeding. [phone]), nurse with [facility]. [facility] fax number is [phone] per pt. Home Health Order: draw INR on Completed by: Jeane Dykes [facility] [employer] Other 02-24-2022 Evaluation note* Encounter Date Diagnosis Assessment Notes Treatment Notes Treatment Clinical Notes Sep, Medication monitoring encounter (ICD-10 - Z51.81) Referring Provider: Robe Alonso Diagnosis: Thrombus, Atrial Fibrillation INR Goal: 2-3 INR: 1.29 ([facility]) Tablet Size: 5mg Wednesday: 5mg Wednesday: 5mg Wednesday: 5mg Wednesday: 5mg : 5mg Wednesday: 5mg Wednesday: 5mg Total Weekly Dose: 35mg Boost additional 2.5mg for 3 days, then resume above plan. Follow up with a draw on Wednesday. Patient was not bridged with Lovenox at [facility]. Patient has been back on warfarin for 1 week. HH Adriana's phone number ([phone]), nurse with [facility]. [facility] fax number is [phone] per pt. Home Health Order: draw INR on Wednesday10/28/2021 Completed by: Jeane Dykes [facility] [employer] Other 01-01-2022 History of Present illness Narrative* [...] details. * She has remote history of RI , cardiogenic shock, PCI circumflex and iABP, with persistent severe LV dysfunction. She later occluded her cicumflex. Years later, she had HF and severe MR and underwentmitral valve repair at [facility]. She had recurrent VT and atrial arrhythmias, and underwent several ablations and repeat percutaneous MVR at [facility]. After her MVR and ablation in July,, she had KALLI when then improved. She has had recurrent ICD shocks for atrial flutter. * Personal review of ECG and cardiac data reviewed * Outside records: * EP study and successful ablation of atrial flutter. Multiple atrial tachycardias, possible left atrial tachycardia also noted and not targeted for ablation. December 2021. * Discharge summary [facility] Oct 2021 * Cardiology consult Oct 2021 [...] Patient reports that she follows up with [facility] [place] cardiology for further adjustment of medication. Patient will notify us with whom she follows. Co nsider referral to advanced heart failure section. * Sustained VT s/p ablations at [facility]. No documentation of ablations available in chart. * CAD, chronic. See above. Reviewed meds. Continue meds. Discussed refills. * Biventricular ICD for refractory heart failure. Medtronic [id number]. Reviewed device check. No recentdevice check noted. Order sent to [facility] device clinic for device checks. * Hypertension, chronic. Stable. Reviewed meds. Continue meds. Discussed refills. * Migraine headache * AHA recommendations for exercise, diet, and behavioral modification reviewed with pt. * The patient and I discussed the mechanism of arrhythmia, ablation to prevent atrial flutter, no recurrent inappropriate shocks, need for compliance for device checks, order sent to [facility] for device checks, follow-up with heart failure clinic at [facility], indications for and typesof medications, discussion if and what medication refills needed, treatment options, risks, benefits, and imponderables. [place] [employer] lifestyle changes and behavioral modification discussed. All questions answered in detail. Counseling over 50% visit regarding above. Patient appreciative of care. * Grammar * Please excuse grammatical or dictation errors as software dictation application being used. [facility] DO Work Phone: [phone]) 844-160711-18-2021 Evaluation note* Encounter Date Diagnosis Assessment Notes [...] 2 weeks. Seen by Memo Fuchs PharmD [employer] Other 11-01-2021 Evaluation note* Encounter Date Diagnosis [...] 2 weeks. Seen by Susan Euceda RN [employer] Other 10-11-2021 Evaluation note* Encounter Date Diagnosis [...] 2 weeks. 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 Transfer to [facility] on 06/20 Plan: Continue amiodarone 400 [...] 07/13/2012 1 09/15/2011 Overview: IV Fentanyl PRN, MACH[employer], Lidoderm patches, Po pain meds Pulmonary insuff [...] papillary muscles and chordal apparatus Dual chamber SENIOR CLINICAL RESEARCH ASSOCIATE-D 07/23/2020 Overview: On 07.14.12 -fired x6 for SVT/AF HRs 140-150 (pacer set at 130- any HR over that it recognizes as VT). EP consulted- will follow their recommendations (will continue po amio taper to control rate). Needs pacer check- Wednesday07.18.2012- will d/w EP about pacer check. H/o GERD 07/23/2020 Overview: 07.18.2012: Asymptomatic. On Protonix. documented as of this encounter (statuses as of 01/14/2022) [facility] History of Past illness Narrative* Problem Noted [...] 260ms and 260ms) terminating VT. Transfer to [facility] on 06/20 Plan: Continue amiodarone 400 [...] 07/13/2012 1 09/15/2011 Overview: IV Fentanyl PRN, [employer], Lidoderm patches, Po pain meds Pulmonary insuff [...] papillary muscles and chordal apparatus Dual chamber SENIOR CLINICAL RESEARCH ASSOCIATE-D 07/23/2020 Overview: On 07.14.12 -fired x6 for SVT/AF HRs 140-150 (pacer set at 130- any HR over that it recognizes as VT). EP consulted- will follow their recommendations (will continue po amio taper to control rate). Needs pacer check- Wednesday07.18.2012- will d/w EP about pacer check. H/o GERD 07/23/2020 Overview: 07.18.2012: Asymptomatic. On Protonix. documented as of this encounter (statuses as of 04/12/2022) [facility] History of Past illness Narrative* Problem Noted [...] 260ms and 260ms) terminating VT. Transfer to [facility] on 06/20 Plan: Continue amiodarone 400 [...] 07/13/2012 1 09/15/2011 Overview: IV Fentanyl PRN, [employer], Lidoderm patches, Po pain meds Pulmonary insuff [...] papillary muscles and chordal apparatus Dual chamber SENIOR CLINICAL RESEARCH ASSOCIATE-D 07/23/2020 Overview: On 07.14.12 -fired x6 for SVT/AF HRs 140-150 (pacer set at 130- any HR over that it recognizes as VT). EP consulted- will follow their recommendations (will continue po amio taper to control rate). Needs pacer check- Wednesday07.18.2012- will d/w EP about pacer check. H/o GERD 07/23/2020 Overview: 07.18.2012: Asymptomatic. On Protonix. documented as of this encounter (statuses as of 06/01/2022) [facility] History of Past illness Narrative* Problem Noted [...] 260ms and 260ms) terminating VT. Transfer to [facility] on 06/20 Plan: Continue amiodarone 400 [...] 07/13/2012 1 09/15/2011 Overview: IV Fentanyl PRN, [employer], Lidoderm patches, Po pain meds Pulmonary insuff [...] CBC, Coags, BMP, Mg, Phos Basename 07/12/12 0502 07/11/12 2220 WBC 8.50 6.78 HB 13.1 [...] papillary muscles and chordal apparatus Dual chamber SENIOR CLINICAL RESEARCH ASSOCIATE-D 07/23/2020 Overview: On 07.14.12 -fired x6 for SVT/AF HRs 140-150 (pacer set at 130- any HR over that it recognizes as VT). EP consulted- will follow their recommendations (will continue po amio taper to control rate). Needs pacer check- Wednesday07.18.2012- will d/w EP about pacer check. H/o GERD 07/23/2020 Overview: 07.18.2012: Asymptomatic. On Protonix. documented as of this encounter (statuses as of 07/01/2022) [facility] History of Past illness Narrative* Problem Noted [...] 260ms and 260ms) terminating VT. Transfer to [facility] on 06/20 Plan: Continue amiodarone 400 [...] 07/13/2012 1 09/15/2011 Overview: IV Fentanyl PRN, [employer], Lidoderm patches, Po pain meds Pulmonary insuff [...] papillary muscles and chordal apparatus Dual chamber SENIOR CLINICAL RESEARCH ASSOCIATE-D 07/23/2020 Overview: On 07.14.12 -fired x6 for SVT/AF HRs 140-150 (pacer set at 130- any HR over that it recognizes as VT). EP consulted- will follow their recommendations (will continue po amio taper to control rate). Needs pacer check- Wednesday07.18.2012- will d/w EP about pacer check. H/o GERD 07/23/2020 Overview: 07.18.2012: Asymptomatic. On Protonix. documented as of this encounter (statuses as of 07/27/2022) [facility] History of Past illness Narrative* Problem Noted [...] 260ms and 260ms) terminating VT. Transfer to [facility] on 06/20 Plan: Continue amiodarone 400 [...] 07/13/2012 1 09/15/2011 Overview: IV Fentanyl PRN, MACH[employer], Lidoderm patches, Po pain meds Pulmonary insuff [...] papillary muscles and chordal apparatus Dual chamber SENIOR CLINICAL RESEARCH ASSOCIATE-D 07/23/2020 Overview: On 07.14.12 -fired x6 for SVT/AF HRs 140-150 (pacer set at 130- any HR over that it recognizes as VT). EP consulted- will follow their recommendations (will continue po amio taper to control rate). Needs pacer check- Wednesday07.18.2012- will d/w EP about pacer check. H/o GERD 07/23/2020 Overview: 07.18.2012: Asymptomatic. On Protonix. documented as of this encounter (statuses as of 08/30/2022) [facility] History of Past illness Narrative* Problem Noted [...] 260ms and 260ms) terminating VT. Transfer to [facility] on 06/20 Plan: Continue amiodarone 400 [...] 07/13/2012 1 09/15/2011 Overview: IV Fentanyl PRN, M[employer], Lidoderm patches, Po pain meds Pulmonary insuff [...] papillary muscles and chordal apparatus Dual chamber SENIOR CLINICAL RESEARCH ASSOCIATE-D 07/23/2020 Overview: On 07.14.12 -fired x6 for SVT/AF HRs 140-150 (pacer set at 130- any HR over that it recognizes as VT). EP consulted- will follow their recommendations (will continue po amio taper to control rate). Needs pacer check- Wednesday07.18.2012- will d/w EP about pacer check. H/o GERD 07/23/2020 Overview: 07.18.2012: Asymptomatic. On Protonix. documented as of this encounter (statuses as of 09/11/2022) [facility] History of Past illness Narrative* Problem Noted [...] 260ms and 260ms) terminating VT. Transfer to [facility] on 06/20 Plan: Continue amiodarone 400 [...] 07/13/2012 1 09/15/2011 Overview: IV Fentanyl PRN, MACH[employer], Lidoderm patches, Po pain meds Pulmonary insuff [...] papillary muscles and chordal apparatus Dual chamber SENIOR CLINICAL RESEARCH ASSOCIATE-D 07/23/2020 Overview: On 07.14.12 -fired x6 for SVT/AF HRs 140-150 (pacer set at 130- any HR over that it recognizes as VT). EP consulted- will follow their recommendations (will continue po amio taper to control rate). Needs pacer check- Wednesday07.18.2012- will d/w EP about pacer check. H/o GERD 07/23/2020 Overview: 07.18.2012: Asymptomatic. On Protonix. documented as of this encounter (statuses as of 11/28/2022) [facility] History of Past illness Narrative* Problem Noted [...] 260ms and 260ms) terminating VT. Transfer to [facility] on 06/20 Plan: Continue amiodarone 400 [...] 07/13/2012 1 09/15/2011 Overview: IV Fentanyl PRN, MACH[employer], Lidoderm patches, Po pain meds Pulmonary insuff [...] papillary muscles and chordal apparatus Dual chamber SENIOR CLINICAL RESEARCH ASSOCIATE-D 07/23/2020 Overview: On 07.14.12 -fired x6 for SVT/AF HRs 140-150 (pacer set at 130- any HR over that it recognizes as VT). EP consulted- will follow their recommendations (will continue po amio taper to control rate). Needs pacer check- Wednesday07.18.2012- will d/w EP about pacer check. H/o GERD 07/23/2020 Overview: 07.18.2012: Asymptomatic. On Protonix. documented as of this encounter (statuses as of 03/05/2023) [facility] History of Past illness Narrative* Problem Noted [...] 260ms and 260ms) terminating VT. Transfer to [facility] on 06/20 Plan: Continue amiodarone 400 [...] pain 07/13/2012 07/16/2012 Overview: IV Fentanyl PRN, MACH[employer], Lidoderm patches, Po pain meds Pulmonary insuff [...] papillary muscles and chordal apparatus Dual chamber SENIOR CLINICAL RESEARCH ASSOCIATE-D 0 Overview: On 07.14.12 -fired x6 for SVT/AF HRs 140-150 (pacer set at 130- any HR over that it recognizes as VT). EP consulted- will follow their recommendations (will continue po amio taper to control rate). Needs pacer check- Wednesday07.18.2012- will d/w EP about pacer check. H/o GERD 07/23/2020 Overview: 07.18.2012: Asymptomatic. On Protonix. documented as of this encounter (statuses as of 03/29/2023) [facility] History of Past illness Narrative* Problem Noted [...] 260ms and 260ms) terminating VT. Transfer to [facility] on 06/20 Plan: Continue amiodarone 400 [...] pain 07/13/2012 07/16/2012 Overview: IV Fentanyl PRN, MACH[employer], Lidoderm patches, Po pain meds Pulmonary insuff [...] papillary muscles and chordal apparatus Dual chamber SENIOR CLINICAL RESEARCH ASSOCIATE-D 0 Overview: On 07.14.12 -fired x6 for SVT/AF HRs 140-150 (pacer set at 130- any HR over that it recognizes as VT). EP consulted- will follow their recommendations (will continue po amio taper to control rate). Needs pacer check- Wednesday07.18.2012- will d/w EP about pacer check. H/o GERD 07/23/2020 Overview: 07.18.2012: Asymptomatic. On Protonix. documented as of this encounter (statuses as of 04/10/2023) [facility] History of Past illness Narrative* Problem Noted [...] 260ms and 260ms) terminating VT. Transfer to [facility] on 06/20 Plan: Continue amiodarone 400 mg BID and mexilitine 150 mg TID. Given large NASRA clot, would advise against cardioversion unless patient is unstable. VT ablation risky in setting of large NASRA thrombus. Plan to monitor patient over the weekend for recurrent VT. If she remains stable, likely discharge home on Wednesday Dyslipidemia, goal LDL below 70 07/17/2012 07/23/2020 Overview: 11.19.2012: Pre-op Lipid panel: TC 152, TC 265, [...] pain 07/13/2012 07/16/2012 Overview: IV Fentanyl PRN, MACH[employer], Lidoderm patches, Po pain meds Pulmonary insuff [...] papillary muscles and chordal apparatus Dual chamber SENIOR CLINICAL RESEARCH ASSOCIATE-D 0 Overview: On 07.14.12 -fired x6 for SVT/AF HRs 140-150 (pacer set at 130- any HR over that it recognizes as VT). EP consulted- will follow their recommendations (will continue po amio taper to control rate). Needs pacer check- Wednesday07.18.2012- will d/w EP about pacer check. H/o GERD 07/23/2020 Overview: 07.18.2012: Asymptomatic. On Protonix. documented as of this encounter (statuses as of 04/22/2023) [facility] History of Past illness Narrative* Problem Noted [...] 260ms and 260ms) terminating VT. Transfer to [facility] on 06/20 Plan: Continue amiodarone 400 [...] pain 07/13/2012 07/16/2012 Overview: IV Fentanyl PRN, MACHINE [employer], Lidoderm patches, Po pain meds Pulmonary insuff [...] papillary muscles and chordal apparatus Dual chamber SENIOR CLINICAL RESEARCH ASSOCIATE-D 0 Overview: On 07.14.12 -fired x6 for SVT/AF HRs 140-150 (pacer set at 130- any HR over that it recognizes as VT). EP consulted- will follow their recommendations (will continue po amio taper to control rate). Needs pacer check- Wednesday07.18.2012- will d/w EP about pacer check. H/o GERD 07/23/2020 Overview: 07.18.2012: Asymptomatic. On Protonix. documented as of this encounter (statuses as of 05/07/2023) [facility] History of Past illness Narrative* Problem Noted [...] 260ms and 260ms) terminating VT. Transfer to [facility] on 06/20 Plan: Continue amiodarone 400 [...] pain 07/13/2012 07/16/2012 Overview: IV Fentanyl PRN, MACHINE [employer], Lidoderm patches, Po pain meds Pulmonary insuff [...] papillary muscles and chordal apparatus Dual chamber SENIOR CLINICAL RESEARCH ASSOCIATE-D 0 Overview: On 07.14.12 -fired x6 for SVT/AF HRs 140-150 (pacer set at 130- any HR over that it recognizes as VT). EP consulted- will follow their recommendations (will continue po amio taper to control rate). Needs pacer check- Wednesday07.18.2012- will d/w EP about pacer check. H/o GERD 07/23/2020 Overview: 07.18.2012: Asymptomatic. On Protonix. documented as of this encounter (statuses as of 07/28/2023) [facility] History of Past illness Narrative* Problem Noted [...] 260ms and 260ms) terminating VT. Transfer to [facility] on 06/20 Plan: Continue amiodarone 400 [...] pain 07/13/2012 07/16/2012 Overview: IV Fentanyl PRN, MACHINE [employer], Lidoderm patches, Po pain meds Pulmonary insuff [...] papillary muscles and chordal apparatus Dual chamber SENIOR CLINICAL RESEARCH ASSOCIATE-D 0 Overview: On 07.14.12 -fired x6 for SVT/AF HRs 140-150 (pacer set at 130- any HR over that it recognizes as VT). EP consulted- will follow their recommendations (will continue po amio taper to control rate). Needs pacer check- Wednesday07.18.2012- will d/w EP about pacer check. H/o GERD 07/23/2020 Overview: 07.18.2012: Asymptomatic. On Protonix. documented as of this encounter (statuses as of 07/28/2023) [facility] History of Past illness Narrative* Problem Noted [...] 260ms and 260ms) terminating VT. Transfer to [facility] on 06/20 Plan: Continue amiodarone 400 [...] pain 07/13/2012 07/16/2012 Overview: IV Fentanyl PRN, MACHINE [employer], Lidoderm patches, Po pain meds Pulmonary insuff [...] papillary muscles and chordal apparatus Dual chamber SENIOR CLINICAL RESEARCH ASSOCIATE-D 0 Overview: On 07.14.12 -fired x6 for SVT/AF HRs 140-150 (pacer set at 130- any HR over that it recognizes as VT). EP consulted- will follow their recommendations (will continue po amio taper to control rate). Needs pacer check- Wednesday07.18.2012- will d/w EP about pacer check. H/o GERD 07/23/2020 Overview: 07.18.2012: Asymptomatic. On Protonix. documented as of this encounter (statuses as of 08/10/2023) [facility] Megan Hoskins [facility] March 30, 2024 4:36pm Note Date/Time March 30, 2024 4:3 6pm [facility] [address] [place] [address] Cardiology Consult Note Signed Patient: Essence Vincent MR#: [id number] : 1970 Acct:[id number] Age/Sex: 53 / F Adm Date: 4 Loc: Room: [address] [place] [address] Type: ADM INOo Attending Dr: Patrica Mcmahon MD Copies to: Amanda Grace APRN, WOOD GLUER MD Megan Mcarthur DO~ Cardiology HPI History of Present Illness Consult Date: 03/30/24 Reason for Consult: Ischemic cardiomyopathy, remote RI, remote MVR HPI: Ms. Vincent is a 53 year old female attempted to see in cardiovascular consultation at the request of hospitalist however patient is already left AMA. Patient well-known to me dating back to 1997 from when she had her massive inferoposterior myocardial infarction with revascularization of the circumflex with cardiogenic shock and balloon pump and stenting. She is going on to occlude her circumflex his severe LV dysfunction; had secondary mitral regurgitation went on to have mitral valve replacement with subsequent prosthetic valve mitral stenosis and went on to have valve in valve mitral valvereplacement at [facility]. She also has AICD biventricular pacemaker followed by Dr. Munson at [facility]. She has not seen me since 2021. Apparently she had her generator change with Dr. Margareth Nunez in 2023. She no longer follows withcardiology locally. I believe she is getting most of her cardiology care at [facility] electrophysiology care between [facility] and ?EM In any event, she has left AMA [facility], [facility] Medical History (Updated 03/30/24 @ 16:35 by Megan Hoskins DO) Restless leg syndrome Anxiety Paroxysmal A-fib Deep vein thrombosis (DVT) Presence of combination internal cardiac defibrillator (ICD) and pacemaker Ventricular tachycardia (12/06/18) Hypotension CHF (congestive heart failure) Atrial thrombus Large clot found in heart at [facility]. COPD (chronic obstructive pulmonary disease) Myocardial infarction SVT (supraventricular tachycardia) Depression GERD (gastroesophageal reflux disease) Presence of combination internal cardiac defibrillator (ICD) and pacemaker Surgical History History of tonsillectomy and adenoidectomy Hx of hysterectomy Hx of cholecystectomy History of back surgery History of open heart surgery Hx laparoscopic cholecystectomy Hx of appendectomy Previous back surgery AICD (automatic cardioverter/defibrillator) present H/O mitral valve replacement Hx of CABG Hx of prior ablation treatment Family History (Updated 03/30/24 @ 02:32 by Kristyn Russell APRN) Mother Small cell B-cell lymphoma Father Cancer pancreatic with mets to lungs Heart disease Brother Cancer oral Social History Smoking Status: Former smoker Tobacco Type: cigarettes Substance Use Type: Marijuana Social History Comments: pt states she is homeless but staying with friends Meds Medications and Allergies Allergies erythromycin base Allergy (Unknown, Verified 03/29/24 23:37) Vomiting latex Allergy (Unknown, Verified 03/29/24 23:37) Hives fentanyl Allergy (Verified 03/29/24 23:37) Palpitations morphine Allergy (Verified 03/29/24 23:37) Vomiting ondansetron [From Zofran] Allergy (Verified 03/29/24 23:37) Agitated adhesive tape Adverse Reaction (Verified 03/29/24 23:37) Redness of Skin Home Medications metoprolol succinate 100 mg tablet,extended release 24 hr 100 mg PO DAILY 30 days #30 tabs 11/16/21 [Rx Confirmed 03/30/24] isosorbide mononitrate 30 mg tablet,extended release 24 hr 30 mg PO DAILY #14 tabs 11/22/21 [Rx Confirmed 03/30/24] amiodarone 200 mg tablet 200 mg PO QAM 01/24/24 [History Confirmed 03/30/24] atorvastatin 80 mg tablet (Lipitor) 80 mg PO HS 90 days #90 tabs 02/16/24 [Rx Confirmed 03/30/24] levothyroxine 75 mcg tablet 75 mcg PO DAILY 90 days #90 tabs 02/16/24 [Rx Confirmed 03/30/24] omeprazole 40 mg capsule,delayed release 40 mg PO DAILY 90 days #90 caps 02/16/24 [Rx Confirmed 03/30/24] albuterol sulfate 90 mcg/actuation aerosol inhaler 1 puff inhalation Q4HR PRN shortness of breath or wheezing 02/17/24 [History Confirmed 03/30/24] itfhkxyibj-pxyncbmjhnyvq-erixylhh 50 mg-300 mg-40 mg capsule (Fioricet) 1 cap POQ4HR PRN Headache 02/17/24 [History Confirmed 03/30/24] memantine 28 mg capsule sprinkle,extended release 24hr 28 mg PO DAILY 02/17/24 [History Confirmed 03/30/24] multivitamin 1 tab PO DAILY 02/17/24 [History Confirmed 03/30/24] nitroglycerin 0.4 mg sublingual tablet 0.4 mg sublingual DIRECTED 02/17/24 [History Confirmed 03/30/24] warfarin 2 mg tablet See Rx Instructions PO .COMPLEX 02/17/24 [History Confirmed 03/30/24] potassium chloride 10 mEq capsule,extended release 10 meq PO BID 90 days #180 caps 02/18/24 [Rx Confirmed 03/30/24] ropinirole 0.25 mg tablet See Rx Instructions PO DIRECTED 90 days #270 tabs 02/23/24 [Rx Confirmed 03/30/24] lorazepam 0.5 mg tablet 0.5 mg PO BID PRN anxiety 03/30/24 [History Confirmed 03/30/24] torsemide 20 mg tablet 40 mg PO DAILY 03/30/24 [History Confirmed 03/30/24] trazodone 50 mg tablet 50 mg PO QHS 03/30/24 [History Confirmed 03/30/24] warfarin 5 mg tablet See Rx Instructions PO .COMPLEX 03/30/24 [History Confirmed 03/30/24] Exam Physical Exam Vital Signs: Temp Pulse Resp BP Pulse Ox O2 Del Method 97.4 F L 81 16 113/74 98 Room Air 03/30/24 11:54 03/30/24 11:54 03/30/24 11:54 03/30/24 11:54 03/30/24 11:54 03/30/24 11:56 Results - Cardiology Labs 03/30/24 04:26 03/30/24 04:26 Lab results: Cardiac Enzymes 03/30/24 Range/Units 00:27 Total Creatine Kinase 93 (30-223) U/L B-Natriuretic Peptide 256.0 H (5-100) pg/mL Lipids 03/30/24 Range/Units 04:26 Triglycerides 59 (0-149) mg/dL Cholesterol 89 L (140-200) mg/dL HDL Cholesterol 39 (23-92) mg/dL Cholesterol/HDL Ratio 2.3 (<5.0) CBC 03/30/24 03/30/24 Range/Units 00:27 04:26 RBC 5.00 5.05 H (3.60-5.00) X10E6/uL Hgb 9.3 L 9.5 L (11.8-15.4) g/dL Hct 31.3 L 31.6 L (34.0-46.4) % Plt Count 264 247 (150-450) x10E3/uL Neut # (Auto) N/A 8.3 H Lymph # (Auto) N/A 1.6 [place] # (Auto) N/A 1.0 H Eos # (Auto) N/A 0.1 Baso # (Auto) N/A 0.2 Comprehensive Metabolic Panel 03/30/24 03/30/24 Range/Units 00:27 04:26 Sodium 137 136 (136-145) mmol/L Potassium 3.3 L 4.4 (3.5-5.1) mmol/L Chloride 103 103 (98-107) mmol/L Carbon Dioxide 24.9 24.4 (21.0-31.0) mmol/L BUN 27 H 25 (7-25) mg/dL Creatinine 1.06 0.99 (0.60-1.20) mg/dL Glucose 126 H 83 (70-100) mg/dL Calcium 8.8 8.8 (8.6-10.3) mg/dL Intake and Output 03/30/24 03/30/24 03/30/24 07:59 15:59 23:59 Intake Total 450 / 450 Balance 450 / 450 Intake: Oral 450 / 450 Other: # Unmeasured Voids 1 Weight 70.6 kg Date of Last Bowel Movement 03/29/24 03/30/24 Patient Weight 03/30/24 23:59 Weight 70.6 kg Lab 03/30/24 03/30/24 00:27 04:26 PT 12.9 12.5 INR 1.1 1.1 APTT 25.3 A&P - Cardiology (1) ASCVD (arteriosclerotic cardiovascular disease): Code(s): I25.10 - Atherosclerotic heart disease of [place] coronary artery without angina pectoris (2) Ischemic cardiomyopathy with implantable cardioverter-defibrillator (ICD): Code(s): I25.5 - Ischemic cardiomyopathy; Z95.810 - Presence of automatic (implantable) cardiac defibrillator (3) Ventricular tachycardia: Code(s): I47.20 - Ventricular tachycardia, unspecified (4) CHF (congestive heart failure): Code(s): I50.9 - Heart failure, unspecified (5) Atrial thrombus: Code(s): I51.3 - Intracardiac thrombosis, not elsewhere classified (6) Myocardial infarction: Code(s): I21.9 - Acute myocardial infarction, unspecified (7) Paroxysmal A-fib: Code(s): I48.0 - Paroxysmal atrial fibrillation (8) Ischemic cardiomyopathy: Code(s): I25.5 - Ischemic cardiomyopathy Plan Recommend patient follow-up with cardiology on a regular basis Documented By: Megan Hoskins DO 03/30/24 1630 Signed By: <Electronically signed by Megan Hoskins DO> 03/30/24 4483 [facility] Work Phone: evaluation note* Diagnosis Onset Date Resolution Status Afib acute Anemia acute CAD (coronary artery disease) acute Iron deficiency anemia acute Ischemic cardiomyopathy with implantable cardioverter-defibrillator (ICD) acute Palpitations acute Supratherapeutic INR acute Ventricular tachycardia acut e [facility] note[facility] InformationNort iCharts Other Evaluation noteNoStudiekring Other Evaluation note* Diagnosis Onset Date Resolution Status KALLI (acute kidney injury) ac [place] Digoxin toxicity acute Elevated troponin I level ac [place] Hypotension acute Thrombocytopenia acute [facility] note[facility] assessment information available [facility] Work Phone: Evaluation note* Diagnosis Persistent atrial fibrillation (HCC)- Primary Atrial fibrillation [facility] Diagnosis ICD (implantable cardioverter-defibrillator) battery depletion documented in this encounter [facility] Work Phone: Evaluation note* Diagnosis ICD (implantable cardioverter-defibrillator) battery depletion Elective replacement of implantable cardioverter-defibrillator (ICD) battery required- Primary Biventricular implantable cardioverter-defibrillator (ICD) in situ Biventricular implantable cardioverter-defibrillator (ICD) in situ Elective replacement of implantable cardioverter-defibrillator (ICD) battery required documented in this encounter [facility] Work Phone: Evaluation note* Diagnosis Elective replacement of implantable cardioverter-defibrillator (ICD) battery required- Primary Biventricular implantable cardioverter-defibrillator (ICD) in situ Elective replacement of implantable cardioverter-defibrillator (ICD) battery required Atrial tachycardia Other specified cardiac dysrhythmias Paroxysmal atrial fibrillation (CMS/HCC) Atrial fibrillation CAD (coronary artery disease) Coronary atherosclerosis of unspecified type of vessel, [place] or graft VT (ventricular tachycardia) (CMS/HCC) Paroxysmal ventricular tachycardia Biventricular implantable cardioverter-defibrillator (ICD) in situ Biventricular implantable cardioverter-defibrillator (ICD) in situ Elective replacement of implantable cardioverter-defibrillator (ICD) battery required documented in this encounter [facility] Work Phone: Evaluation note* Diagnosis Hypokalemia- Primary Hypopotassemia Hypokalemia Hypopotassemia Dizziness Dizziness and giddiness Longstanding persistent atrial fibrillation (HCC) [facility] Diagnosis Longstanding persistent atrial fibrillation (HCC)- Primary [facility] Diagnosis Onset Date Resolution Status Cellulitis of face noneactiv e [facility] Work Phone: Evaluation note* Diagnosis Onset Date Resolution Status Generalized anxiety disorder acute Hypokalemia acute Right shoulder pain acute Right upper limb pain acute [facility] Work Phone: Evaluation note* Diagnosis Onset Date Resolution Status Atrial fibrillation acute Coronary artery disease acut e Generalized anxiety disorder acute GERD (gastroesophageal reflux disease) acute History of aneurysm acute History of RI (myocardial infarction) acute History of mitral valve replacement acute Hypokalemia acute Migraines acute Restless leg syndrome acute Right shoulder pain acute Right upper limb pain acute Depression acute Generalized anxiety disorder acute [facility] Work Phone: Evaluation note* Diagnosis Onset Date Resolution Status Atrial fibrillation acute Coronary artery disease acut e Generalized anxiety disorder acute GERD (gastroesophageal reflux disease) acute History of aneurysm acute History of RI (myocardial infarction) acute History of mitral valve replacement acute Hypokalemia acute Migraines acute Restless leg syndrome acute Right shoulder pain acute Right upper limb pain acute Contusion, upper arm acute Depression acute Generalized anxiety disorder acute Injury of right upper arm ac [place] Chest pain acute Heart palpitations acute [facility] Work Phone: Evaluation note* Diagnosis Onset Date Resolution Status Atrial fibrillation acute Coronary artery disease acut e Generalized anxiety disorder acute GERD (gastroesophageal reflux disease) acute History of aneurysm acute History of RI (myocardial infarction) acute History of mitral valve replacement acute Hypokalemia acute Migraines acute Restless leg syndrome acute Right shoulder pain acute Right upper limb pain acute Contusion, upper arm acute Depression acute Generalized anxiety disorder acute Injury of right upper arm ac [place] ASCVD (arteriosclerotic cardiovascular disease) acute Atrial thrombus acute Chest pain acute Congestive heart failure acu te COPD (chronic obstructive pulmonary disease) acute Generalized anxiety disorder acute Heart palpitations acute Hypokalemia acute Iron deficiency anemia acute Ischemic cardiomyopathy acut e Ischemic cardiomyopathy with implantable cardioverter-defibrillator (ICD) acute Myocardial infarction acute Paroxysmal A-fib acute Subtherapeutic international normalized ratio (INR) acute Ventricular tachycardia August 04, 2018 acute [facility] Work Phone: Hismlpu general Narrative - Reported* Type Description Date [...] see surgical hx Hospitalization History heart issues [facility] [employer] Other History general [facility] - [facility] Other History general Narrative - Reported* Type [...] see surgical hx Hospitalization History heart issues [employer] Other History of Present illness Narrative* She is referred by Dr. Hoskins for evaluation for ablation of atrial flutter. * She has remote history of RI , cardiogenic shock, PCI circumflex and iABP, with persistent severe LV dysfunction. She later occluded her cicumflex. Years later, she had HF and severe MR and underwentmitral valve repair at [facility]. She had recurrent VT and atrial arrhythmias, and underwent several ablations and repeat percutaneous MVR at [facility]. After her MVR and ablation in [...] reviewed * Outside records: * Discharge summary [facility] Oct 2021 * Cardiology consult Oct 2021 * ECG Oct 2021 * H and P Oct 2021 * Echo Oct 2021. LVEF 15% * ECG: Today. Atrial flutter. LAD. QT 400 ms * See signed ECG and check /Paceart. * Imp / Plan * Paroxsymal atrial flutter. Mutliple ICD shocks. Shared decision making re: atrial flutter management. Preop cardiac evaluation performed. [place] decision tool. She opts for EP study ablation of atrial flutter. Procedures, risks, benefits, and imponderables reviewed. Consented. * Chronic systolic heart failure. Stable NYHA III C HF. Reviewed meds. Continue meds. Refills. * Sustained VT s/p ablations at [facility]. No documentation of ablations available in chart at time of visit * CAD, chronic. See above. Reviewed meds. Continue meds. Refills. * Biventricular ICD for refractor heart failure. Medtronic [id number]. Reviewed device check. Followed at [facility]. * Preop cardiac eval. See orders. [...] needed, treatment options, risks, benefits, and imponderables. [place] [employer] lifestyle changes and behavioral modification discussed. All questions answered in detail. Counseling over 50% visit regarding above. Patient appreciative of care. * Grammar * Please excuse grammatical or dictation errors as software dictation application being used. [facility] [address] DO Work Phone: Hospital Discharge instructions* Attachments The following attachments cannot be sent through Care Everywhere. * Hypokalemia ([place]) [facility] Additional Instructions It does not [...] Lovenox. They will tell you when to stop.[facility] Work Phone: Hospital Discharge instructionsAmbulatory Orders* Referral to Psychiatry Time Frame: 02/22/24, Location: None Selected [facility] Work Phone: Hospital Discharge instructions Additional Instructions Please have a PT/INR drawn on 04/03/24.[facility] Work Phone: Reason for visit [facility] Vera nurse RC/waiting [place] referralT[place] iCharts Other Summary Purpose Family History No Family [...] father Malignant neoplasm Unknown Heart disease Unknown Relationship Condition Age at Onset Recorded Date/T tosin mother Small B-cell lymphoma Unknown Unknown father Malignant neoplasm Unknown Heart disease Unknown brother Malignant neoplasm Unknown Advance Directives No Advanced Directives Records FoundDocuments on File Type Date Recorded 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 Advance Directive(s) 06/18/2020 4:28 PM [...] Documents on File Type Date Recorded 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 Advance Directive(s) 03/12/2021 1:21 PM Advance Directive(s) 12/27/2020 3:12 PM Advance Directive(s) 08/18/2020 1:26 PM Advance Directive(s) 08/17/2020 6:49 PM Advance Directive(s) 08/11/2020 1:34 PM [facility] Advance Directive(s) 07/23/2020 12:14 PM Advance [...] pain Reason for Visit Cellulitis of face Chief Complaint ^ chest pain follow up Reason for Visit Generalized anxiety disorder Hypokalemia Right shoulder pain Right upper limb pain Chief Complaint ^ chest pain follow up Fall Reason for Visit Atrial fibrillation Coronary artery disease Generalized anxiety disorder GERD (gastroesophageal reflux disease) History of aneurysm History of RI (myocardial infarction) History of mitral valve replacement Hypokalemia Migraines Restless leg syndrome Right shoulder pain Right upper limb pain Depression Generalized anxiety disorder Chief Complaint ^ chest pain follow up Fall Chest pain Reason for Visit Atrial fibrillation Coronary artery disease Generalized anxiety disorder GERD (gastroesophageal reflux disease) History of aneurysm History of RI (myocardial infarction) History of mitral valve replacement Hypokalemia Migraines Restless leg syndrome Right shoulder pain Right upper limb pain Contusion, upper arm Depression Generalized anxiety disorder Injury of right upper arm Chest pain Heart palpitations Chief Complaint ^ chest pain follow up Fall Chest pain Reason for Visit Atrial fibrillation Coronary artery disease Generalized anxiety disorder GERD (gastroesophageal reflux disease) History of aneurysm History of RI (myocardial infarction) History of mitral valve replacement Hypokalemia Migraines Restless leg syndrome Right shoulder pain Right upper limb pain Contusion, upper arm Depression Generalized anxiety disorder Injury of right upper arm ASCVD (arteriosclerotic cardiovascular disease) Atrial thrombus Chest pain Congestive heart failure COPD (chronic obstructive pulmonary disease) Generalized anxiety disorder Heart palpitations Hypokalemia Iron deficiency anemia Ischemic cardiomyopathy Ischemic cardiomyopathy with implantable cardioverter-defibrillator (ICD) Myocardial infarction Paroxysmal A-fib Subtherapeutic international normalized ratio (INR) Ventricular tachycardia Assessments Diagnosis Onset Date Resolution Status CAD (coronary artery disease) acute Chest pain acute Elevated troponin I level ac [place] Ischemic cardiomyopathy with implantable cardioverter-defibrillator (ICD) acute [...] acut e Chief Complaint Order sent to [facility] for testing due in DecemberNew patient referred by Dr. Hoskins for possible ablation. Seen at [facility] 11/04/2021atient is here today for a scheduled follow upAmiodarone Order sent to [facility] for testing due in May Reason for Referral Specialty Diagnoses / Procedures Referred By Purnima ferris Referred To Contact Pharmacist / Pharmacy Diagnoses Longstanding persistent atrial fibrillation (HCC) Swapnil Brand MD [address] [place] [address] [facility] [address] [place] [address] Referral ID Status Reason Start Date Expiration Date Visits Requested Visits Authorized [id number] Authorized Specialty Services Required 10/06/2023 10/05/2024 99 99 Scheduling Instructions [facility] Medication Management Question Answer New Start No Tx Agent Warfarin INR Goal 2.0-3.0 [3] Tx Duration Indefinite Comments Electronic signature for this referral acknowledges acceptance of entering into a collaborative practice agreement pursuant to Section 4729.39 of the [place] Revised Code. Specialty Diagnoses / Procedures Referred By Purnima ferris Referred To Contact Cardiology Diagnoses ICD (implantable cardioverter-defibrillator) battery depletion Procedures Cardiac Device Check - In Clinic Margareth Nunez MD [address] [place] [address] Referral ID Status Reason Start Date Expiration Date Visits Requested Visits Authorized [id number] Pending Review Perform Procedure 3 07/26/2024 52 52 Additional Source Comments INFORMATION SOURCE (unrecogn ized section and content) DATE CREATED AUTHOR 10/19/2018 [facility] [employer] DATE CREATED AUTHOR AUTHOR'S ORGANIZ ATION 09/30/2021 [facility] DATE CREATED AUTHOR AUTHOR'S ORGANIZ ATION 02/07/2022 [facility] DATE CREATED AUTHOR AUTHOR'S ORGANIZ ATION 04/26/2022 [facility] DATE CREATED AUTHOR AUTHOR'S ORGANIZ ATION 02/06/2023 [facility] DATE CREATED AUTHOR AUTHOR'S ORGANIZ ATION 08/29/2023 [facility] DATE CREATED AUTHOR AUTHOR'S ORGANIZ ATION 09/30/2023 [facility] DATE CREATED AUTHOR AUTHOR'S ORGANIZ ATION 09/30/2023 [facility] DATE CREATED AUTHOR AUTHOR'S ORGANIZ ATION 10/05/2023 [facility] DATE CREATED AUTHOR AUTHOR'S ORGANIZ ATION 10/14/2023 [facility] DATE CREATED AUTHOR AUTHOR'S ORGANIZ ATION 01/07/2024 [facility] DATE CREATED AUTHOR AUTHOR'S ORGANIZ ATION 04/02/2024 [facility] DATE CREATED AUTHOR AUTHOR'S ORGANIZ ATION 04/07/2024 [facility] Source Comments (unrecognize d section and content) In the event this informatio n is protected by the Federal Confidentiality of Alcohol and Drug Abuse Patient Records regulations: The Federal rules restrict any use of the information to criminally investigate or prosecute any alcohol or drug abuse patient.[facility] CenterIn the event this information is protected by the Federal Confidentiality of Alcohol and Drug Abuse Patient Records regulations: The Federal rules restrict any use of the information to criminally investigate or prosecute any alcohol or drug abuse patient.[facility] CenterIn the event this information is protected by the Federal Confidentiality of Alcohol and Drug Abuse Patient Records regulations: The Federal rules restrict any use of the information to criminally investigate or prosecute any alcohol or drug abuse patient.[facility] CenterIn the event this information is protected by the Federal Confidentiality of Alcohol and Drug Abuse Patient Records regulations: The Federal rules restrict any use of the information to criminally investigate or prosecute any alcohol or drug abuse patient.[facility] CenterIn the event this information is protected by the Federal Confidentiality of Alcohol and Drug Abuse Patient Records regulations: The Federal rules restrict any use of the information to criminally investigate or prosecute any alcohol or drug abuse patient.[facility] CenterIn the event this information is protected by the Federal Confidentiality of Alcohol and Drug Abuse Patient Records regulations: The Federal rules restrict any use of the information to criminally investigate or prosecute any alcohol or drug abuse patient.[facility] CenterIn the event this information is protected by the Federal Confidentiality of Alcohol and Drug Abuse Patient Records regulations: The Federal rules restrict any use of the information to criminally investigate or prosecute any alcohol or drug abuse patient.[facility] CenterIn the event this information is protected by the Federal Confidentiality of Alcohol and Drug Abuse Patient Records regulations: The Federal rules restrict any use of the information to criminally investigate or prosecute any alcohol or drug abuse patient.[facility] CenterIn the event this information is protected by the Federal Confidentiality of Alcohol and Drug Abuse Patient Records regulations: The Federal rules restrict any use of the information to criminally investigate or prosecute any alcohol or drug abuse patient.[facility] CenterIn the event this information is protected by the Federal Confidentiality of Alcohol and Drug Abuse Patient Records regulations: The Federal rules restrict any use of the information to criminally investigate or prosecute any alcohol or drug abuse patient.[facility] CenterIn the event this information is protected by the Federal Confidentiality of Alcohol and Drug Abuse Patient Records regulations: The Federal rules restrict any use of the information to criminally investigate or prosecute any alcohol or drug abuse patient.[facility] CenterIn the event this information is protected by the Federal Confidentiality of Alcohol and Drug Abuse Patient Records regulations: The Federal rules restrict any use of the information to criminally investigate or prosecute any alcohol or drug abuse patient.[facility] CenterIn the event this information is protected by the Federal Confidentiality of Alcohol and Drug Abuse Patient Records regulations: The Federal rules restrict any use of the information to criminally investigate or prosecute any alcohol or drug abuse patient.[facility] CenterIn the event this information is protected by the Federal Confidentiality of Alcohol and Drug Abuse Patient Records regulations: The Federal rules restrict any use of the information to criminally investigate or prosecute any alcohol or drug abuse patient.[facility] CenterIn the event this information is protected by the Federal Confidentiality of Alcohol and Drug Abuse Patient Records regulations: The Federal rules restrict any use of the information to criminally investigate or prosecute any alcohol or drug abuse patient.[facility] CenterIn the event this information is protected by the Federal Confidentiality of Alcohol and Drug Abuse Patient Records regulations: The Federal rules restrict any use of the information to criminally investigate or prosecute any alcohol or drug abuse patient.[facility] CenterIn the event this information is protected by the Federal Confidentiality of Alcohol and Drug Abuse Patient Records regulations: The Federal rules restrict any use of the information to criminally investigate or prosecute any alcohol or drug abuse patient.[facility] CenterIn the event this information is protected by the Federal Confidentiality of Alcohol and Drug Abuse Patient Records regulations: The Federal rules restrict any use of the information to criminally investigate or prosecute any alcohol or drug abuse patient.[facility] CenterIn the event this information is protected by the Federal Confidentiality of Alcohol and Drug Abuse Patient Records regulations: The Federal rules restrict any use of the information to criminally investigate or prosecute any alcohol or drug abuse patient.[facility] CenterIn the event this information is protected by the Federal Confidentiality of Alcohol and Drug Abuse Patient Records regulations: The Federal rules restrict any use of the information to criminally investigate or prosecute any alcohol or drug abuse patient.[facility] Care Teams (unrecognized sec tion and content) Team Status: Active Member Role Status Dates Karen Garner MD Primary Care Provider Active Team Status: Active Member Role Status Dates Darian Smiley DO Attending Provider Active Start: November 29, 2003 Team Status: Inactive Member Role Status Dates Amanda Grace APRN ORGANIZATION DEVELOPMENT CONSULTANT-C Primary Care Provider Active Start: November 11, 2023 End: November 11, 2023 Verona Hoskins APRN Attending Provider Active Start: November 11, 2023 End: November 11, 2023 Team Status: Inactive Member Role Status Dates Tanner Mae Jr, MD Emergency Provider Active Start: January 24, 2024 End: January 24, 2024 Karen Garner MD Primary Care Provider Active Start: January 24, 2024 End: January 24, 2024 Technical Account Executive Relationship Specialty Start Date End Date Robe Alonso PCP - General 04/16/10 Nadir Hoskins [address] [address] Physician Cardiology 10/13/18 Margareth Nuenz [address] [place] [phone] Cardiology 10/14/18 Violeta Chan MD [address] [place] [address] Cnc Set Up Operator Cardiology 07/04/20 Violeta Chan MD [address] [place] [address] Primary Staff Physician Cardiology 02/11/21 Technical Account Executive Relationship Specialty Start Date End Date Robe Alonso PCP - General 04/16/10 Nadir Hoskins [address] [address] Physician Cardiology 10/13/18 Margareth Nunez [address] [place] [phone] Cardiology 10/14/18 Violeta Chan MD [address] [place] [address] Cnc Set Up Operator Cardiology 07/04/20 Violeta Chan MD [address] [place] [address] Primary Staff Physician Cardiology 02/11/21 Team Status: Active Member Role Status Dates Darian Smiley DO Attending Provider Active Team Status: Active Member Role Status Dates PHYSICIAN NO FAMILY Primary Care Provider Active Technical Account Executive Relationship Specialty Start Date End Date Robe Alonso PCP - General 04/16/10 Nadir Hoskins [address] [address] Physician Cardiology 10/13/18 Margareth Nunez MD Cardiology 10/14/18 Violeta Chan MD [address] [facility] [place] [place] [address] Cnc Set Up Operator Cardiology 07/04/20 Violeta Chan MD [address] [facility] [place] [address] Primary Staff Physician Cardiology 02/11/21 Technical Account Executive Relationship Specialty Start Date End Date Robe Alonso (Fax) PCP - General 04/16/10 Nadir Hoskins [address] [place] [phone] Physician Cardiology 10/13/18 Margareth Nunez MD [address] [place] [phone] Cardiology 10/14/18 Violeta Chan MD [address] [place] [address] Cnc Set Up Operator Cardiology 07/04/20 Violeta Chan MD [address] [place] [address] Primary Staff Physician Cardiology 02/11/21 Technical Account Executive Relationship Specialty Start Date End Date Robe Alonso (Fax) PCP - General 04/16/10 Nadir Hoskins [address] [place] [address] Physician Cardiology 10/13/18 Margareth Nunez MD [address] [place] [address] Cardiology 10/14/18 Violeta Chan MD [address] [place] [address] Cnc Set Up Operator Cardiology 07/04/20 Violeta Chan MD [address] [place] [address] Primary Staff Physician Cardiology 02/11/21 Technical Account Executive Relationship Specialty Start Date End Date Robe Alonso (Fax) PCP - General 04/16/10 Nadir Hoskins [address] [place] [phone] Physician Cardiology 10/13/18 Margareth Nunez MD [address] [place] [phone] Cardiology 10/14/18 Violeta Chan MD [address] [place] [address] Cnc Set Up Operator Cardiology 07/04/20 Violeta Chan MD [address] [place] [address] Primary Staff Physician Cardiology 02/11/21 Technical Account Executive Relationship Specialty Start Date End Date Anju Cuevas, DMD [address] [facility] [place] [address] Physician Oral & Maxillofacial Surgery 06/04/20 Technical Account Executive Relationship Specialty Start Date End Date Robe Alonso (Fax) PCP - General 04/16/10 Nadir Hoskins [address] [place] [address] Physician Cardiology 10/13/18 Margareth Nunez MD [address] [address] Cardiology 10/14/18 Violeta Chan MD [address] [place] [address] Cnc Set Up Operator Cardiology 07/04/20 Violeta Chan MD [address] [place] [address] Primary Staff Physician Cardiology 02/11/21 Technical Account Executive Relationship Specialty Start Date End Date Robe Alonso (Fax) PCP - General 04/16/10 Nadir Hoskins [address] [address] Physician Cardiology 10/13/18 Margareth Nunez MD [address] [address] Cardiology 10/14/18 Violeta Chan MD [address] [place] [address] Cnc Set Up Operator Cardiology 07/04/20 Violeta Chan MD [address] [place] [address] Primary Staff Physician Cardiology 02/11/21 Technical Account Executive Relationship Specialty Start Date End Date Robe Alonso (Fax) PCP - General 04/16/10 Nadir Hoskins [address] [address] Physician Cardiology 10/13/18 Margareth Nunez MD [address] [address] Cardiology 10/14/18 Violeta Chan MD [address] [place] [address] Cnc Set Up Operator Cardiology 07/04/20 Violeta Chan MD [address] [place] [address] Primary Staff Physician Cardiology 02/11/21 Technical Account Executive Relationship Specialty Start Date End Date Robe Alonso (Fax) PCP - General 04/16/10 Nadir Hoskins DO [address] [address] Physician Cardiology 10/13/18 Margareth Nunez MD [address] [address] Cardiology 10/14/18 Violeta Chan MD [address] [place] [address] Cnc Set Up Operator Cardiology 07/04/20 Violeta Chan MD [address] [place] [address] Primary Staff Physician Cardiology 02/11/21 Technical Account Executive Relationship Specialty Start Date End Date Robe Alonso (Fax) PCP - General 04/16/10 Nadir Hoskins DO [address] [place] [address] Physician Cardiology 10/13/18 Margareth Nunez MD [address] [place] [address] Cardiology 10/14/18 Violeta Chan MD [address] [place] [address] Cnc Set Up Operator Cardiology 07/04/20 Violeta Chan MD [address] [place], [place] [id number] Primary Staff Physician Cardiology 02/11/21 Technical Account Executive Relationship Specialty Start Date End Date Robe Alonso PCP - General 04/16/10 Nadir Hoskins DO [address] [place] [address] Physician Cardiology 10/13/18 Margareth Nunez MD [address] [place] [address] Cardiology 10/14/18 Violeta Chan MD [address] [place] [address] Cnc Set Up Operator Cardiology 07/04/20 Violeta Chan MD [address] [place], [place] [id number] Primary Staff Physician Cardiology 02/11/21 Team Status: Active Member Role Status Dates Amanda Grace APRN ORGANIZATION DEVELOPMENT CONSULTANT-C Primary Care Provider Active Team Status: Inactive Member Role Status Dates Margareth Nunez MD Attending Provider Active Amanda Grace APRN ORGANIZATION DEVELOPMENT CONSULTANT-C Primary Care Provider Active Technical Account Executive Relationship Specialty Start Date End Date Robe Alonso PCP - General 04/16/10 Nadir Hoskins DO [address] [id number] Physician Cardiology 10/13/18 Margareth Nunez MD [address] [id number] Cardiology 10/14/18 Violeta Chan MD [address] [place] [address] Cnc Set Up Operator Cardiology 07/04/20 Violeta Chan MD [address] [place] [address] Primary Staff Physician Cardiology 02/11/21 Technical Account Executive Relationship Specialty Start Date End Date Shaikh Rojas MD [facility] [id number] [place] [address] PCP - General 04/24/22 Jameel Valenzuela, PETE-WOOD GLUER [address] [facility], [facility] [address] [place], [place] [id number] Nurse Practitioner Cardiology 09/02/23 Margareth Nunez MD [address] [facility] [place] [address] Consulting Physician Cardiology 09/02/23 Technical Account Executive Relationship Specialty Start Date End Date Shaikh Rojas MD [facility] [address] [place] [address] PCP - General 04/24/22 Jameel Valenzuela, SHOE STITCHER-WOOD GLUER [address] [facility], [facility] [address] [place] [address] Nurse Practitioner Cardiology 09/02/23 Margareth Nunez MD [address] [facility], [facility] [address] [place] [address] Consulting Physician Cardiology 09/02/23 Technical Account Executive Relationship Specialty Start Date End Date Liam Hyman MD [address] [place] [address] PCP - General Family Medicine 09/29/23 Jameel Valenzuela, SHOE STITCHER-WOOD GLUER [address] [facility], [facility] [address] [place] [address] Nurse Practitioner Cardiology 09/02/23 Margareth Nunez MD [address] [facility], [facility] [address] [place] [address] Consulting Physician Cardiology 09/02/23 Technical Account Executive Relationship Specialty Start Date End Date Liam Hyman MD [address] [place] [id number] PCP - General Family Medicine 10/11/23 Technical Account Executive Relationship Specialty Start Date End Date Liam Hyman MD [address] [place] [address] PCP - General Family Medicine 10/11/23 Team Status: Active Member Role Status Dates Karen Garner MD Primary Care Provider Active Start: February 17, 2024 Lina Kirke DO Mario Attending Provider Active Start: February 17, 2024 Team Status: Inactive Member Role Status Dates Karen Garner MD Primary Care Provider Active Start: February 18, 2024 End: February 18, 2024 Amanda Grace APRN NP-C Attending Provider Act zulma Start: February 18, 2024 End: February 18, 2024 Team Status: Inactive Member Role Status Dates Karen Garner MD Primary Care Provider Active Start: February 22, 2024 End: February 22, 2024 PETE Zapata Attending Provider Act zulma Start: February 22, 2024 End: February 22, 2024 Team Status: Active Member Role Status Dates Pedro Melo DO Emergency Provider Active Start: March 30, 2024 Amanda Grace APRN NP-C Primary Care Provider Active Start: March 30, 2024 Kendrick Jorgensen MD Admit Provider, Atte nding Provider Active Start: March 30, 2024 Team Status: Inactive Member Role Status Dates Pedro Melo DO Emergency Provider Active Start: March 30, 2024 End: March 30, 2024 Amanda Grace APRN NP-Cici Primary Care Provider Active Start: March 30, 2024 End: March 30, 2024 Kendrick Jorgensen MD Admit Provider Active Start: 2023 End: March 30, 2024 Patrica Mcmahon MD Attending Provider Active Start: March 30, 2024 End: March 30, 2024 REASON FOR VISIT (unrecogniz ed section and content) Reason Onset Date Comments Opened In Error 07/27/2022 Reason Comments Research IRB [id number] TRIM-AF Specialty Diagnoses / Procedures Referred By Contac t Referred To Contact Cardiology Diagnoses ICD (implantable cardioverter-defibrillator) battery depletion Procedures Cardiac Device Check - In Clinic Margareth Nunez MD [address] [facility] Medical Office [facility], [facility] [address] [place] [address] Referral ID Status Reason Start Date Expiration Date Visits Requested Visits Authorized [id number] Pending Review Perform Procedure 3 07/26/2024 52 52 Specialty Diagnoses / Procedures Referred By Purnima t Referred To Contact Diagnoses Biventricular implantable cardioverter-defibrillator (ICD) in situ Elective replacement of implantable cardioverter-defibrillator (ICD) battery required Biventricular implantable cardioverter-defibrillator (ICD) in situ [Z95.810] Elective replacement of implantable cardioverter-defibrillator (ICD) battery required [Z95.810] Procedures MO RMVL IMPLTBL DFB PLS GEN W/RPLCMT PLS GEN DIRECTOR HEART LD ICD BIV Generator Change Out Margareth Nunez MD [address] [facility] Medical Office [address] [place] [address] [facility] [address] [place] [address] Referral ID Status Reason Start Date Expiration Date Visits Re quested Visits Authorized [id number] 1 1 Reason Comments Dizziness Specialty Diagnoses / Procedures Referred By Purnima ferris Referred To Contact Diagnoses Hypokalemia Dizziness Swapnil Brand MD [address] [place] [address] [facility] [address] [place] [address] Referral ID Status Reason Start Date Expiration Date Visits Re quested Visits Authorized [id number] 1 1 Specialty Diagnoses / Procedures Referred By Purnima ferris Referred To Contact Pharmacist / Pharmacy Diagnoses Longstanding persistent atrial fibrillation (HCC) Swapnil Brand MD [address] [place] [address] [facility] [address] [place] [address] Referral ID Status Reason Start Date Expiration Date Visits Requested Visits Authorized [id number] Authorized Specialty Services Required 10/06/2023 10/05/2024 99 [...] (Continued by Anesthesia - Provider: Sy Gastelum APRN-CLINICAL INSTRUCTOR)0937 (Due: Stopped - Provider: Yessi Miller APRN-WOOD GLUER)0948 (Anesthesia Volume Adjustment - Provider: Sy Gastelum APRN-CLINICAL INSTRUCTOR) PRN Medication Order 09/27/2023 09/28/2023 09/29/2023 acetaminophen [...] Ciarra Cesar RN)0915 (Given - Provider: Sy Gastelum APRN-CLINICAL INSTRUCTOR) potassium chloride 20 mEq in 100 mL [...] mg from all sources in 24 hours. 2322 (Given - Provider: Patrice Mukherjee RN) amiodarone (CORDARONE) tablet 400 mg 400 mg, Oral, DAILY, First dose on Wed10/06/23 at 0900, Until Discontinued 1043 (Given - Provider: Yvette Alatorre, RN) 08 (Given - Provider: Brenda Martinez, NAYLA) atorvastatin (LIPITOR) tablet 80 mg 80 mg, Oral, NIGHTLY, First dose on Wed10/06/23 at 0100, Until Discontinued 55 (Given - Provider: Tevin Gauthier RN)2203 (Given - Provider: Dennis Bustos, RN) 2100 (Due) cefTRIAXone (ROCEPHIN) 1,000 mg in sodium chloride 0.9 % 50 mL IVPB (mini-bag) (COMPLETED) 1,000 mg, IntraVENous, ONCE, 1 dose, On Wed10/05/23 at 2300, Antimicrobial Indications: Urinary Tract Infection 232 (New Bag - Provider: Patrice Mukherjee RN) 003 (Stopped - Provider: Tevin Gauthier, NAYLA) enoxaparin (LOVENOX) injection 70 mg 70 mg [...] with provider prior to any invasive procedure. 55 (Given - Provider: Tevin Gauthier RN)1313 (Given - Provider: Yvette Alatorre, NAYLA - Comment: Pt gave herself as patient education)2203 (Given - Provider: Dennis Bustos, NAYLA) 0900 (Due)2100 (Due) FLUoxetine (PROZAC) capsule 40 mg 40 mg, Oral, DAILY, First dose on Wed10/06/23 at 0900, Until Discontinued 1043 (Given - Provider: Yvette Alatorre RN) 0844 (Given - Provider: Brenda Martinez RN) isosorbide mononitrate (IMDUR) extended release tablet 30 mg 30 mg, Oral, DAILY, First dose on Wed10/06/23 at 0900, Until Discontinued, Do not crush or chew. 1043 (Given - Provider: Yvette Alatorre RN) 0845 (Given - Provider: Brenda Martinez RN) levothyroxine (SYNTHROID) tablet 75 mcg 75 mcg, [...] 0845 (Given - Provider: Brenda Martinez RN) metoprolol succinate (TOPROL XL) extended release tablet [...] in half and each half swallowed separately. 182 (Given - Provider: Yvette Alatorre RN) 0845 (Given - Provider: Brenda Martinez, RN)1700 (Due) potassium chloride 10 mEq/100 mL IVPB (Peripheral Line) (COMPLETED) 10 mEq, IntraVENous, EVERY HOUR, 4 doses, First dose on Wed10/05/23 at 2100, Last dose on Wed10/06/23 at 0000, at 100 mL/hr 2045 (New Bag - Provider: Moncho Zuñiga RN)222 (New Bag - Provider: Moncho Zuñiga RN)2325 (New Bag - Provider: Patrice Mukherjee RN) 0045 (New Bag - Provider: Tevin Gauthier, NAYLA)0157 (Stopped - Provider: Tevin Gauthier, NAYLA) rOPINIRole (REQUIP) tablet 2 mg 2 mg, Oral, 3 TIMES DAILY, First dose (after last modification) on Wed10/06/23 at 0300, Until Discontinued 0246 (Given - Provider: Tevin Gauthier, NAYLA)1042 (Given - Provider: Yvette Alatorre, NAYLA)1428 (Given - Provider: Yvette Alatorre RN)2204 (Given - Provider: Dennis Bustos RN) 0844 (Given - Provider: Brenda Martinez, NAYLA)1400 (Due)2100 (Due) sodium chloride 0.9 % bolus 100 mL (COMPLETED) 100 mL (1.42 mL/kg), IntraVENous, at 2,000 mL/hr, Administer over 3 Minutes, ONCE, On Wed10/05/23 at 2145, For 1 dose 2153 (New Bag - Provider: Mavis Marcum) 0037 (Stopped - Provider: Tevin Gauthier, NAYLA) sodium chloride flush 0.9 % injection 10 mL (COMPLETED) 10 mL, IntraVENous, ONCE, 1 dose, On Wed10/05/23 at 2145 215 (Given - Provider: Mavis Marcum) sodium chloride [...] mL/lumen 1043 (Given - Provider: Yvette Alatorre RN)4 (Given - Provider: Dennis Bustos, NAYLA) 1139 (Given - Provider: Brenda Martinez, NAYLA)2100 (Due) traZODone (DESYREL) tablet 50 mg 50 mg, Oral, NIGHTLY, First dose on Wed10/06/23 at 0100, Until Discontinued 55 (Given - Provider: Tevin Gauthier, NAYLA)2203 (Given - Provider: Dennis Bustos, NAYLA) 2100 (Due) warfarin (COUMADIN) tablet 7.5 mg (COMPLETED) 7.5 mg, Oral, ONCE Warfarin, 1 dose, On Wed10/06/23 at 1800, Indication of Use: Other, Other Warfarin Indication: Cardiomegaly/ pulmonary vascular congestion, What is the patient's goal INR? 2.0 - 3.0, Review INR prior to administration. Hazardous med- See facility policy for handling/disposal 1823 (Given - Provider: Yvette Alatorre RN) warfarin [...] RT Bronchodilator Protocol: Yes - Inpatient Protocol nlpmgrxlab-QACD-jhjfvfdf 50-300-40 MG per capsule 1 capsule 1 capsule, Oral, EVERY 4 HOURS PRN, Starting on Wed10/06/23 at 0034, Until Discontinued, Headaches, Maximum dose of acetaminophen is 4000 mg from all sources in 24 hours. 1152 (Given - Provider: Yvette Alatorre RN)1552 (Given - Provider: Yvette Alatorre RN)2209 (Given - Provider: Dennis Bustos, NAYLA) 0844 (Given - Provider: Brenda Martinez RN) iopamidol (ISOVUE-370) 76 % injection 75 mL (COMPLETED) 75 mL, IntraVENous, IMG ONCE PRN, 1 dose, Starting on Wed10/05/23 at 2133, Until Wed10/05/23 at 2153, Other 2153 (Given - Provider: Mavis Marcum) LORazepam (ATIVAN) tablet 0.5 mg 0.5 mg, Oral, 3 TIMES DAILY PRN, Starting on Wed10/06/23 at 0034, Until Discontinued, Anxiety 0056 (Given - Provider: Tevin Gauthier RN)1043 (Given - Provider: Yvette Alatorre RN)2023 (Given - Provider: Dennis Bustos, NAYLA) 0449 (Given - Provider: Dennis Bustos, NAYLA) magnesium [...] 0115 (New Bag - Provider: Tevin Gauthier, NYALA)0134 (Stopped - Provider: Tevin Gauthier RN) sodium [...] BE BASED ON THE PRIMARY CLINICAL RECORDS. [employer] provides no warranty or guarantee of the accuracy or completeness of information in this document.
--- NOTE | 2024-04-19 04:27 | ED.GENADUL1 ---
HPI HPI - General Adult General Chief complaint: Headache Stated complaint: HEADACHE Time Seen by Provider: 04/19/24 04:20 Source: patient Mode of arrival: ambulance Limitations: no limitations History of Present Illness HPI narrative: 53-year-old female presents to the emergency department for headache. She thought her blood pressure was high, she had checked it at home but it was not elevated here. She is also had a headache for nearly 24 hours. No trauma fever or stiff neck. She is on Coumadin. This was not of sudden onset and it is much like her migraine headaches that she has had in the past. It is moderate. Related Data Home Medications ?Medication ?Instructions ?Recorded ?Confirmed atorvastatin 80 mg tablet 80 mg PO DAILY 03/18/23 07/28/23 baclofen 5 mg tablet 5 mg PO TID PRN back spasm or pain 03/18/23 05/31/23 clonazepam 0.5 mg tablet 0.5 mg PO TID PRN anxiety 03/18/23 05/31/23 isosorbide mononitrate 30 mg 30 mg PO DAILY 03/18/23 07/28/23 tablet,extended release 24 hr levothyroxine 75 mcg tablet 75 mcg PO DAILY 03/18/23 07/28/23 nitroglycerin 0.4 mg sublingual 0.4 mg sublingual Q5M PRN chest 03/18/23 07/28/23 tablet pain omeprazole 40 mg capsule,delayed 40 mg PO DAILY 03/18/23 07/28/23 release potassium chloride 20 mEq 20 meq PO DAILY 03/18/23 07/28/23 tablet,extended release(part/cryst) ropinirole 2 mg tablet 2 mg PO TID 03/18/23 07/28/23 trazodone 50 mg tablet 50 mg PO QPM 03/18/23 07/28/23 warfarin 5 mg tablet 5 mg PO DAILY 03/18/23 07/28/23 albuterol sulfate 90 mcg/actuation 1 puff inhalation Q6H PRN SOB 05/07/23 07/28/23 aerosol inhaler inkuyaunid-skyzkndbevljl-wtdhxeqm 1 cap PO Q4H PRN headache 05/07/23 07/28/23 50 mg-300 mg-40 mg capsule (Fioricet) metoprolol succinate 100 mg 100 mg PO DAILY 05/07/23 07/28/23 tablet,extended release 24 hr Previous Rx's ?Medication ?Instructions ?Recorded fluoxetine 20 mg capsule 40 mg (2 x 20 mg) PO DAILY #0 caps 05/08/23 furosemide 40 mg tablet (Lasix) 40 mg PO BID #60 tabs 05/08/23 amiodarone 200 mg tablet (Pacerone) 200 mg PO QD #30 tabs 05/20/23 methocarbamol 500 mg tablet 500 mg PO Q8H PRN muscle pain #10 05/31/23 tabs cephalexin 500 mg capsule 500 mg PO BID 10 days #20 caps 06/04/23 amoxicillin 875 mg-potassium 1 tab PO Q12H #20 tabs 09/05/23 clavulanate 125 mg tablet doxycycline hyclate 100 mg tablet 100 mg PO BID 7 days #14 tabs 09/05/23 Allergies Allergy/AdvReac Type Severity Reaction Status Date / Time erythromycin base Allergy Unknown Unknown Verified 04/19/24 04:15 ondansetron [From Zofran] AdvReac tachycardia Verified 02/17/24 22:51 Opioid HPI Opioid Management Most Recent Opioid Data: Last Pain Scale 7 06/04/23 19:05 Review of Systems ROS Narrative A ten point review of systems is negative except as noted above. [facility] Medical History (Updated 04/19/24 @ 06:01 by Justyn Busch MD) Lactic acidosis ?E87.20 - Acidosis, unspecified (ICD-10) Fluid overload ?E87.70 - Fluid overload, unspecified (ICD-10) Nausea ?R11.0 - Nausea (ICD-10) Generalized weakness ?R53.1 - Weakness (ICD-10) ANTONINA (generalized anxiety disorder) ?F41.1 - Generalized anxiety disorder (ICD-10) RLS (restless legs syndrome) ?G25.81 - Restless legs syndrome (ICD-10) Hypothyroid ?E03.9 - Hypothyroidism, unspecified (ICD-10) Hyperlipidemia ?E78.5 - Hyperlipidemia, unspecified (ICD-10) CAD (coronary artery disease) ?I25.10 - Atherosclerotic heart disease of [place] coronary artery without angina pectoris (ICD-10) Paroxysmal atrial fibrillation ?I48.0 - Paroxysmal atrial fibrillation (ICD-10) Chronic HFrEF (heart failure with reduced ejection fraction) ?I50.22 - Chronic systolic (congestive) heart failure (ICD-10) Hypertension ?I10 - Essential (primary) hypertension (ICD-10) Rheumatic fever ?I00 - Rheumatic fever without heart involvement (ICD-10) Pacemaker ?Z95.0 - Presence of cardiac pacemaker (ICD-10) Myocardial infarct, old ?I25.2 - Old myocardial infarction (ICD-10) Multifocal pneumonia ?J18.9 - Pneumonia, unspecified organism (ICD-10) CHF (congestive heart failure) ?I50.9 - Heart failure, unspecified (ICD-10) Acute torticollis ?M43.6 - Torticollis (ICD-10) Fracture of head of humerus with routine healing ?S42.293D - Other displaced fracture of upper end of unspecified humerus, subsequent encounter for fracture with routine healing (ICD-10) Closed head injury ?S09.90XA - Unspecified injury of head, initial encounter (ICD-10) Fall from chair ?W07.XXXA - Fall from chair, initial encounter (ICD-10) Surgical History History of hysterectomy ?Z90.710 - Acquired absence of both cervix and uterus (ICD-10) Mitral valve replaced ?Z95.2 - Presence of prosthetic heart valve (ICD-10) Family History Grandmother Family history of CHF (congestive heart failure) Family history of cancer Family history of hypertension Father Family history of COPD (chronic obstructive pulmonary disease) Family history of cancer Family history of diabetes mellitus Family history of hypertension Sister Family history of COPD (chronic obstructive pulmonary disease) Mother Family history of cancer Family history of hypertension Family history of myocardial infarction Family history of stroke Brother Family history of cancer Grandfather Family history of cancer Social History (Updated 05/20/23 @ 11:23 by Shaikh Crystal MD) Within the past year, how often did you have a drink containing alcohol: never Score interpretation: A score less than 3 is consistent with normal alcohol consumption. Smoking status: Former smoker Non-prescribed substance use: denies use Exam Narrative Exam Narrative: Nurses note and vital signs reviewed and patient is not hypoxic. General: The patient appears well and in no apparent distress. Patient is resting comfortably on cart. Skin: Warm, dry, no pallor noted. There is no rash noted. Head: Normocephalic, atraumatic; neck supple, no nuchal rigidity Eye: Normal conjunctiva, no drainage Ears, Nose, Mouth, and Throat: oral mucosa is moist. Nares patent. Cardiovascular: Regular Rate and Rhythm Respiratory: Patient is in no distress, no accessory muscle use, lungs are clear to auscultation, no wheezing, rales or rhonchi Back: non-tender GI: Soft and nontender Musculoskeletal: The patient has no evidence of calf tenderness, no pitting edema, symmetrical pulses noted bilaterally Neurological: Awake and alert and oriented, moves all extremities well Psychiatric: Cooperative Constitutional Vital Signs, click to edit/add: Last Vital Signs Temp 97.7 F 04/19/24 04:10 Pulse 80 04/19/24 04:10 Resp 18 04/19/24 04:10 BP 140/84 04/19/24 04:10 Pulse Ox 100 04/19/24 04:10 O2 Del Method Room Air 04/19/24 04:10 Course Vital Signs Vital signs: Vital Signs Temperature 97.7 F 04/19/24 04:10 Pulse Rate 80 04/19/24 04:10 Respiratory Rate 18 04/19/24 04:10 Blood Pressure 140/84 04/19/24 04:10 Pulse Oximetry 100 04/19/24 04:10 Oxygen Delivery Method Room Air 04/19/24 04:10 Temperature 97.7 F 04/19/24 04:10 Pulse Rate 80 04/19/24 04:10 Respiratory Rate 18 04/19/24 04:10 Blood Pressure 140/84 04/19/24 04:10 Pulse Oximetry 100 04/19/24 04:10 Oxygen Delivery Method Room Air 04/19/24 04:10 Medical Decision Making MDM Narrative Medical decision making narrative: The patient was given IV fluids, Solu-Medrol, Benadryl, and morphine and she feels much better. She is able to be discharged home. Findings are discussed with the patient. Differential Diagnosis Differential Diagnosis: Migraine headache, nonspecific headache Discharge Plan Discharge Stand Alone Forms: Work/School Release, Portal Instructions Chief Complaint: Headache Clinical Impression: Headache Patient Disposition: Home, Self-Care Time of Disposition Decision: 06:01 Condition: Good Mode of Transportation: Private Vehicle Prescriptions / Home Meds: No Action metoprolol succinate 100 mg tablet extended release 24 hr 100 mg PO DAILY albuterol sulfate 90 mcg/actuation HFA aerosol inhaler 1 puff INHALATION Q6H PRN (Reason: SOB) otzsriobun-svqtxdcxtbkth-jmaw [Fioricet] 50-300-40 mg capsule 1 cap PO Q4H PRN (Reason: headache) furosemide [Lasix] 40 mg tablet 40 mg PO BID Qty: 60 0RF fluoxetine 20 mg capsule 40 mg PO DAILY Qty: 0 0RF methocarbamol 500 mg tablet 500 mg PO Q8H PRN (Reason: muscle pain) Qty: 10 0RF cephalexin 500 mg capsule 500 mg PO BID 10 Days Qty: 20 0RF atorvastatin 80 mg tablet 80 mg PO DAILY trazodone 50 mg tablet 50 mg PO QPM isosorbide mononitrate 30 mg tablet extended release 24 hr 30 mg PO DAILY clonazepam 0.5 mg tablet 0.5 mg PO TID PRN (Reason: anxiety) omeprazole 40 mg capsule,delayed release(DR/EC) 40 mg PO DAILY levothyroxine 75 mcg tablet 75 mcg PO DAILY potassium chloride 20 mEq tablet,ER particles/crystals 20 meq PO DAILY ropinirole 2 mg tablet 2 mg PO TID warfarin 5 mg tablet 5 mg PO DAILY Patient Comments: 1.5 M,W,F, 1 tab other days nitroglycerin 0.4 mg tablet, sublingual 0.4 mg sublingual Q5M PRN (Reason: chest pain) baclofen 5 mg tablet 5 mg PO TID PRN (Reason: back spasm or pain) amiodarone [Pacerone] 200 mg Tablet 200 mg PO QD Qty: 30 0RF amoxicillin-pot clavulanate 875-125 mg tablet 1 tab PO Q12H Qty: 20 0RF doxycycline hyclate 100 mg tablet 100 mg PO BID 7 Days Qty: 14 0RF Print Language: Afghan Instructions: Acute Headache (ED) Referrals: PARRIS GOETZ [Primary Care Provider] - 1 week
[2024-04-19] MEDS: 0.9 % SODIUM CHLORIDE 1,000 ML 1000 ML IV (05:20)
[2024-04-19] MEDS: METHYLPREDNISOLONE SOD SUCC PF 125 MG/2 ML VIAL IVP (05:21)
[2024-04-19] MEDS: MORPHINE SULFATE 4 MG/ML VIAL IV (05:21)
[2024-04-19] MEDS: DIPHENHYDRAMINE HCL 50 MG/ML VIAL 25 MG IV (05:21)
[2024-04-19 06:34] VITALS: BP 132/74; PULSE 82; O2SAT 98
== END 2024-04-19 07:03 | disposition home or self-care (01) ==
PROVIDERS: Emergency Provider Emergency Medicine; PCP Nurse Practitioner Family
DX: R51.9 Headache, unspecified (principal); Z79.01 Long term (current) use of anticoagulants; Z87.891 Personal history of nicotine dependence
CPT/HCPCS: 96374; 96375; 99284; J1200; J2270; J2919

== ENCOUNTER 2024-04-27 20:31 | Emergency (ER) | payer MEDICARE, MEDICAID, SELFPAY ==
[2024-04-27 20:36] VITALS: BP 148/81; PULSE 80; TEMP 36.7; O2SAT 100; BMI 29.3
--- OUTSIDE RECORDS SUMMARY | 2024-04-27 20:41 | XMS_ITS | CCD ---
Author Organization [facility] CliniSymd Care Team Providers Care Guinea Pig Breeder Name Role Phone MAYRA, MARGARETH Admitting Unavailable [...] Primary Care Unavailable Darian Smiley Attending Provider [phone] Robe Alonso Primary Care Provider Robe Alonso Admit Provider Robe Alonso Attending Provider Darian Smiley Attending Provider Robe Alonso Primary Care Provider Robe Alonso Admit Provider Robe Alonso Attending Provider [phone] Unavailable Unavailable PROVIDER, UNKNOWN Attending Unavailable PROVIDER, UNKNOWN Admitting Unavailable PATIENT, SELF Referring Unavailable None, No PCP Unavailable Unavailable Robe Alonso Primary Care Provider [phone] Nadir Hoskins Unavailable Mayra, Margareth J Unavailable Dustin CLAY, Violeta Unavailable Dustin CLAY, Violeta Unavailable Jeane Dykes Unavailable DO Darian Smiley Attending Provider MD Robe Alonso Primary Care Provider MD Robe Alonso Attending Provider [phone] MD Robe Alonso Referring Provider DO Hira Lay Emergency Provider Radhaksi MD Ken Segovia Admit Provider MD Ken Rizo Attending Provider [phone] Robe Alonso Primary Care Provider Nadir Hoskins Unavailable [phone] Margareth Nunez Unavailable Violeta Chan MD Unavailable [phone] Carrillo Chan MDnda Unavailable DO Darian Smiley Attending Provider Crystal, Roy Unavailable Robe Alonso Primary Care Provider Nadir Hoskins Unavailable [phone] Margareth Nunez MD Unavailable Robe Alonso Primary [...] CORIE, DR Juan Miguel Gamez Admitting Unavailable [facility] Primary Care Unavailable SHELLY, DR JC Car Consulting Unavailable Gato DO Nadir Ann Unavailable Dustin CLAY, Violeta Unavailable [phone] Dustin CLAY, Violeta Unavailable Amanda Grace Unavailable MD Margareth Nunez Attending Provider PETE Grace Primary Care Provider Crystal CLAY, Primary Care Provider Bianca FREEMAN-REMNANT SORTER, Jameel E Unavailable Margareth Nunez MD Unavailable Liam Hyman MD Primary Care Provider YESSI MILLER Referring Unavailable LIAM HYMAN Primary Care Unavailable MARGARETH NUNEZ Referring Unavailable [facility] Primary Care Unavailable MARGARETH NUNEZ Admitting Unavailable MARGARETH NUNEZ Attending Unavailable [facility] Primary Care Unavailable Mayra Chang, Margareth [...] Provider MD Karen Garner Primary Care Provider DO Pedro Melo Emergency Provider [phone] PETE Grace Primary Care Provider MD Kendrick Jorgensen Admit Provider MD Kendrick Jorgensen Attending Provider [phone] MD Patrica Mcmahon Attending Provider [phone] JAMEEL VALENZUELA Attending Unavaila SHAIKH Emmanuel Primary [...] Tape Substance Allergy 11-24-19 21 Unknown Reaction [facility] Ondansetron (1 source) Ondansetron Drug Allergy 11-24-19 21 Agitated [facility] Opioid Agonists (2 sources) fentaNYL Drug Allergy 11-24-19 21 Palpitations, Unknown Reaction [facility] (20 sources) Adhesive Tape; Translations: [adhesive tape] Propensity to adverse reactions 08-16-20 20 Unknown Reaction, Redness of Skin [facility] (20 sources) fentaNYL; Translations: [fentanyl] Drug Allergy 09-21-19 20 Headache, Other [facility] Repository (20 sources) Morphine; Translations: [MORPHINE] Drug Allergy 04-26-20 12 Vomiting, GI intolerance, Nausea/vomiting , Nausea And Vomiting [facility] (19 sources) Ondansetron; Translations: [ONDANSETRON] Drug Allergy 09-21-[address] [facility] Repository (20 sources) erythromycin base; Translations: [Erythromycin Base] Allergy to substance 07-08-20 04 Other: See Comments [facility] (20 sources) Erythromycin; Translations: [erythromycin] Drug Allergy 06-05-20 02 Nausea Only, Unknown, Nausea/vomiting [facility] (20 sources) levoFLOXacin; Translations: [Levaquin] Drug Allergy 08-31-19 24 Other, Palpitations [facility] [employer]hingana 250 DO Work Phone: (20 sources) Ondansetron; Translations: [Zofran] Drug Allergy Irritability [facility] Repository (20 sources) varenicline; Translations: [Chantix TABS] Drug Allergy 08-31-19 24 Other, Unknown [facility] Tutor 250 DO Work Phone: (20 sources) Adhesive Tape Propensity to adverse reactions to substance 07-08-20 12 Rash [facility] (20 sources) Ondansetron Drug Allergy 10-13-19 19 Intolerance, Other [facility] (20 sources) Latex Drug allergy 11-11-19 24 Unknown, Hives [facility] (5 sources) Adhesive Tape-Silicones; Translations: [ADHESIVE TAPE-SILICONES] Drug Allergy 08-31-19 24 Other [facility] (2 sources) levoFLOXacin; Translations: [LEVOFLOXACIN] Drug Allergy 08-31-19 24 [facility] Repository (2 sources) Ondansetron; Translations: [ONDANSETRON HCL] Drug Allergy 08-31-19 24 [facility] Repository (2 sources) varenicline; Translations: [VARENICLINE] Drug Allergy 08-31-19 24 [facility] (3 sources) Azithromycin Drug Allergy 10-05-19 24 [facility] (1 source) Latex Drug allergy (disorder) 03-29-20 24 [facility] Repository Medications Current Medications Medication Drug Class(es) [...] 1 capsule by mouth every four hours Azlvxnekyb-Atljcnnxrqyln-Qkin (Fioricet) 50-300-40 mg capsule Active 1 CAP PO Every 4 hours February 17, 2024 12:15pm Start: 10-07-2023 End: 10-07-2023 take 1 tablet by mouth every four hours as needed for headache vlvxhrlyyr-ipdgliodvusbl-gjbijhog (CHIDI CET, ESGIC) 50-325-40 MG per tablet [...] take 1 capsule by mouth twice daily Bvoegaurto-Cvsfrmsnzrmtr-Gzsx (Fioricet) 50-300-40 mg capsule Discontinued 1 CAP PO Twice daily July 19, 2020 1:00am February 17, 2024 12:19pm Start: 06-07-2020 End: 06-15-2020 take 1 tablet by mouth every eight hours Frqohbehmi-Nguufagksrnse-Quen Discontinu ed 1 TAB PO Q8H June 07, 2020 12:00am June 15, 2020 11:49am Start: 04-26-2020 End: 06-07-2020 take 1 capsule by mouth every eight hours as needed Xezredynvi-Irmsqzbdkkarv-Vhwn (Fioricet) 50-300-40 mg capsule Discontinued 1 CAP PO Q8H April 26, 2020 12:00am June 07, 2020 6:06pm TK ONE C PO Q 8 H PRN Start: 09-01-2019 End: 04-26-2020 take 1 tablet by mouth three times daily Gfmwatpcoa-Djhrpibqbubkx-Olks Discontinu ed 1 TAB PO Three times daily 0 September 01, 2019 1:00am April 26, 2020 2:48pm [id number] 200 actuat albuterol 0.09 mg/actuat metered dose [...] Magnesium Replacement, Starting on Wed10/06/23 at 0008 [facility] Lab Replacement Action 1.4-1.6 mg/dL 2,000 mg [...] 0 Active take 1 capsule by mo [facility] every twelve hours Potassium Chloride ER 10 MEQ 1 capsule with food Orally Twice a day Active Potassium Chlori de ER 20 MEQ Oral Tablet Extended Release TAKE 2 TALBET TWICE DAILY X 2 DAYS 12/30 AND 12/31/2021, THEN 2 TABLETS DAILY Quantity: 2 Refills: 0 Ordered: 30-Dec-2021 Bianca PASSENGER CAR CONDUCTOR-REMNANT SORTER, Jameel Active take 1 tablet by augusto [...] 2020 3:22pm take 3 tablets by mo [facility] once daily rOPINIRole (REQUIP) 0.25 MG tablet [...] 5 MG Oral Tablet as directed per [facility] Coumadin clinic Quantity: 0 Refills: 0 Ordered: 31-Dec-2021 DO Active Warfarin 2mg 2 m g as directed orally Active Warfarin Sodium 5 MG Oral Tablet as directed per [facility] Coumadin clinic Quantity: 0 Refills: 0 Ordered: [...] 1 tablet by mouth once daily Hydrocodone-Acetaminophen ([place]) 5-325 mg Tablet Discontinued 1 TAB [...] myocardial infarction; Translations: [Atherosclerotic heart disease of [place] coronary artery without angina pectoris] Onset: 8 [...] disorder; Translations: [Depression] Onset: 0 08-19-2020 Chronic Osteoarthritis (4 sources) Degenerative joint disease of thumb; Translations: [Primary osteoarthritis, unspecified hand] Onset: 2 06-23-2017 Chronic Other aftercare (1 source) 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 of 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 Onset: 9 Episodic Other aftercare (19 sources) Drug therapy finding; Translations: [Long-term (current) use of other medications] Episodic Other aftercare (17 sources) Encounter for therapeutic drug level monitoring; Translations: [Medication monitoring encounter Z51.81] Onset: 1 Resolved: 2 Episodic Other aftercare (1 source) prison (current) use of anticoagulants; Translations: [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 OPERATOR CURRNT USE 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] Onset: 3 Episodic Other aftercare (11 sources) Anticoagulant effect; Translations: [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 of anticoagulants] 11-11-2023 Episodic Other [...] 32.0-32.9, adult Onset: 9 Unclassified (1 source) 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 of anticoagulants Onset: 8 Unclassified (1 source) Other nonrheumatic aortic valve disorders Onset: 8 Unclassified (1 source) Athscl heart disease of [place]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 ang pctrs Onset: 9 Unclassified (1 source) Unspecified convulsions Onset: 9 Unclassified (1 source) 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 of antithrombotics/antipl atelets Onset: 8 [...] encounter for closed fracture] Onset: 02-05-2013 Episodic Nonspecific chest pain (20 sources) Chest pain; Translations: [Chest pain, unspecified] Onset: 01-24-2024 11-12-2021 Episodic Other aftercare (1 source) Other data systems manager (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 Patients having hematocrit values >55% require a special collection tube for coagulation studies. Please contact the laboratory at [phone] for redraw instructions. Amphetamine Screen Ql (U)Ord ered By: Pedro Melo on 03-30-2024 Amphetamines Ql (U) Negative Negative [facility] Anisocytosis [Presence] in B lood by Light microscopyOrdered By: Kristyn Russell on 03-30-2024 Anisocytosis Ql (Bld) Marked Normal [facility] Comment on above: Performed By: #### C K, BNP, HS TROP, PTT, PT #### [address] Anisocytosis [Presence] in B lood by Light microscopyOrdered By: Pedro Melo on 03-30-2024 Anisocytosis Ql (Bld) Marked Normal [facility] Comment on above: Performed By: #### C K, BNP, HS TROP, PTT, PT #### [address] Automated basophil %Ordered By: Kristyn Russell on 03-30-2024 Basophils/100 WBC (Bld) 1.5 % Normal . [facility] Comment on above: Performed By: #### C K, BNP, HS TROP, PTT, PT #### [address] Automated basophil countOrde red By: Kristyn Russell on 03-30-2024 Basophils (Bld) [#/Vol] 0.2 10*3/uL Normal 0.0-0.2 [facility] Comment on above: Performed By: #### C K, BNP, HS TROP, PTT, PT #### [address] Automated blood monocyte cou ntOrdered By: Kristyn Russell on 03-30-2024 Monocytes (Bld) [#/Vol] 1.0 10*3/uL High 0.0-0.8 [facility] Comment on above: Performed By: #### C K, BNP, HS TROP, PTT, PT #### [address] Automated eosinophil %Ordere d By: Kristyn Russell on 03-30-2024 Eosinophils/100 WBC (Bld) 0.6 % Normal . [facility] Comment on above: Performed By: #### C K, BNP, HS TROP, PTT, PT #### [address] Automated eosinophil countOr dered By: Kristyn Russell on 03-30-2024 Eosinophils (Bld) [#/Vol] 0.1 10*3/uL Normal 0.0-0.45 [facility] Comment on above: Performed By: #### C K, BNP, HS TROP, PTT, PT #### [address] Automated monocyte %Ordered By: Kristyn Russell on 03-30-2024 Monocytes/100 WBC (Bld) 8.7 % Normal . [facility] Comment on above: Performed By: #### C K, BNP, HS TROP, PTT, PT #### [address] Automated neutrophil %Ordere d By: Kristyn Russell on 03-30-2024 Neutrophils/100 WBC (Bld) 74.8 % Normal . [facility] Comment on above: Performed By: #### C K, BNP, HS TROP, PTT, PT #### [address] BNP ser/plasOrdered By: Isai Melo on 03-30-2024 Natriuretic peptide B (Bld) [Mass/Vol] 256.0 pg/mL High 5-100 [facility] Comment on above: Result Comment: PERF ORMED BY: [place] [address] PATHOLOGIST CREDIT PRODUCTS OFFICER LILIANA CLAY M.D. Performed By: #### C K, BNP, HS TROP, PTT, PT #### [address] Bacteria [Presence] in Urine by AutomatedOrdered By: Pedro Melo on 03-30-2024 Bacteria Auto Ql (U) 2+ [HPF] High None Seen [facility] Barbiturates [Presence] in U rine by Screen methodOrdered By: Pedro Melo on 03-30-2024 Barbiturates Screen Ql (U) Positive High Negative [facility] Basic Metabolic Panelon Creatinine Clr Calc Pharmacy 62.62 Normal [facility] Comment on above: Performed By: #### M G, TSH3, FE and TIBC, LIPID, SCAN CBC, NEHAL, BMP #### [address] GFR/1.73 sq M.predicted MDRD (S/P/Bld) [Vol rate/Area] mL/min/{1.73_m2} Normal [facility] Comment on above: Performed By: #### M G, TSH3, FE and TIBC, LIPID, SCAN CBC, NEHAL, BMP #### [address] Creatinine Clr Calc Pharmacy 58.60 Normal [facility] Comment on above: Result Comment: PERF ORMED BY: [place] [address] PATHOLOGIST CREDIT PRODUCTS OFFICER LILIANA CLAY M.D. Performed By: #### C K, BNP, HS TROP, PTT, PT #### [place] [address] [place] GFR/1.73 sq M.predicted MDRD (S/P/Bld) [Vol rate/Area] mL/min/{1.73_m2} Normal [facility] Comment on above: Performed By: #### C K, BNP, HS TROP, PTT, PT #### [address] Basophils Auto (Bld) [#/Vol] Ordered By: Pedro Melo on 03-30-2024 Basophils (Bld) [#/Vol] N/A [facility] Basophils/100 WBC Auto (Bld) Ordered By: Pedro Melo on 03-30-2024 Basophils/100 WBC (Bld) N/A [facility] Basophils/100 leukocytes in Blood by Manual countOrdered By: Pedro Melo on 03-30-2024 Basophils/100 WBC (Bld) 2 % Normal 0-2 [facility] Comment on above: Performed By: #### C K, BNP, HS TROP, PTT, PT #### [address] Benzodiazepines Screen Ql (U )Ordered By: Pedro Melo on 03-30-2024 Benzodiazepines Ql (U) Negative Negative [facility] Benzoylecgonine [Presence] i n Urine by Screen methodOrdered By: Pedro Melo on 03-30-2024 Benzoylecgonine Screen Ql (U) Negative Negative [facility] Bilirubin Test strip Ql (U)O rdered By: Pedro Melo on 03-30-2024 Bilirubin Ql (U) Negative Negative [facility] [place] cells [Presence] in Blo od by Light microscopyOrdered By: Kristyn Russell on 03-30-2024 [place] cells LM Ql (Bld) [facility] head/brain wo conon 03-30 CT head/brain wo con [facility] [place] [place] [address] CT Scan Report Signed Patient: Essence Vincent MR#: [id number] : 1970 Acct:[id number] Age/Sex: 53 / F ADM Date: 03/30/24 Loc: Room: [address] [place] [address] Type: ADM INOo Attending Dr: Patrica Mcmahon [...] Bliss Jr., D.OTarun03/30/2024 3:32 PM Dictation Location: [place] [address] Transcribed By: [facility] 03/30/24 1532 Dictated By: Sy Bliss Jr, DO 03/30/24 1531 Signed By: 03/30/24 1532 Normal [facility] Calcium [Mass/volume] in Ser um or PlasmaOrdered By: Kristyn Rusesll on 03-30-2024 Calcium [Mass/Vol] 8.8 mg/dL Normal 8.6-10.3 [facility] Comment on above: Performed By: #### M G, TSH3, FE and TIBC, LIPID, SCAN CBC, NEHAL, BMP #### [facility] [address] Calcium [Mass/volume] in Ser um or PlasmaOrdered By: Pedro Melo on 03-30-2024 Calcium [Mass/Vol] 8.8 mg/dL Normal 8.6-10.3 [facility] Comment on above: Performed By: #### C K, BNP, HS TROP, PTT, PT #### [facility] [address] Cannabinoids [Presence] in U rine by Screen methodOrdered By: Pedro Melo on 03-30-2024 Cannabinoids Screen Ql (U) Positive High Negative [facility] Comment on above: These are unconfirme d results and should not be used for legal purposes. Drug Cut-Off Concentration: AMPH 1000 ng/mL ALESSANDRO 200 ng/mL RHINA 200 ng/mL COCM 300 ng/mL OP 300 ng/mL PCP 25 ng/mL THC 20 ng/mL Carbon dioxide, total [Moles /volume] in Serum or PlasmaOrdered By: Kristyn Russell on 03-30-2024 CO2 [Moles/Vol] 24.4 mmol/L Normal 21.0-31.0 [facility] Comment on above: Performed By: #### M G, TSH3, FE and TIBC, LIPID, SCAN CBC, NEHAL, BMP #### [facility] [address] [place] [address] [place] Carbon dioxide, total [Moles /volume] in Serum or PlasmaOrdered By: Pedro Melo on 03-30-2024 CO2 [Moles/Vol] 24.9 mmol/L Normal 21.0-31.0 [facility] Comment on above: Performed By: #### C K, BNP, HS TROP, PTT, PT #### [facility] [address] [place] [address] [place] Chloride [Moles/volume] in S daisy or PlasmaOrdered By: Kristyn Russell on 03-30-2024 Chloride [Moles/Vol] 103 mmol/L Normal 98-107 [facility] Comment on above: Performed By: #### M G, TSH3, FE and TIBC, LIPID, SCAN CBC, NEHAL, BMP #### [facility] [address] [place] [id number] [place] Chloride [Moles/volume] in S daisy or PlasmaOrdered By: Pedro Melo on 03-30-2024 Chloride [Moles/Vol] 103 mmol/L Normal 98-107 [facility] Comment on above: Performed By: #### C K, BNP, HS TROP, PTT, PT #### [facility] [address] [place] [id number] [place] Cholesterol [Mass/volume] in Serum or PlasmaOrdered By: Kristyn Russell on 03-30-2024 Cholesterol [Mass/Vol] 89 mg/dL Low 140-200 [facility] Comment on above: Chol less than 200 m g/dl low riskChol 201-239 mg/dl borderline riskChol 240 mg/dl and greater high risk Result Comment: Chol less than 200 mg/dl low risk Chol 201-239 mg/dl borderline risk Chol 240 mg/dl and greater high risk Performed By: #### C K, BNP, HS TROP, PTT, PT #### [facility] [address] [place] [id number] [place] Cholesterol in LDL Calc [Mas s/Vol]Ordered By: Kristyn Russell on 03-30-2024 Cholesterol in LDL [Mass/Vol] 38 mg/dL 0-100 [facility] Comment on above: LDL ATP III CLASSIFI CATIONLDL less than 100 mg/dL OptimalLDL 100-129 mg/dL Near or above optimalLDL 130-159 mg/dL Borderline highLDL 160-189 mg/dL HighLDL greater than 189 mg/dL Very high Cholesterol in VLDL Calc [Ma ss/Vol]Ordered By: Kristyn Russell on 03-30-2024 Cholesterol in VLDL [Mass/Vol] 11 mg/dL [facility] Color of Urine by AutoOrdere d By: Pedro Melo on 03-30-2024 Color (U) Light-yellow Normal Yellow [facility] Comment on above: Order Comment: Name Collection Type:: Clean-Voided Midstream Performed By: #### C K, BNP, HS TROP, PTT, PT #### [address] Creatine kinase [Enzymatic a ctivity/volume] in Serum or PlasmaOrdered By: Pedro Melo on 03-30-2024 CK [Catalytic activity/Vol] 93 U/L Normal 30-223 [facility] Comment on above: Performed By: #### C K, BNP, HS TROP, PTT, PT #### [address] Creatinine [Mass/volume] in Serum or PlasmaOrdered By: Kristyn Russell on 03-30-2024 Creatinine [Mass/Vol] 0.99 mg/dL Normal 0.60-1.20 [facility] Comment on above: Performed By: #### M G, TSH3, FE and TIBC, LIPID, SCAN CBC, NEHAL, BMP #### [address] Creatinine [Mass/volume] in Serum or PlasmaOrdered By: Pedro Melo on 03-30-2024 Creatinine [Mass/Vol] 1.06 mg/dL Normal 0.60-1.20 [facility] Comment on above: Performed By: #### C K, BNP, HS TROP, PTT, PT #### [address] Diff and CBCon 03-30-2024 Giant Platelet Tally 5 /100{WBC} Normal [facility] Comment on above: Performed By: #### C K, BNP, HS TROP, PTT, PT #### [address] Hypochromasia Marked Normal [facility] Comment on above: Performed By: #### C K, BNP, HS TROP, PTT, PT #### [address] Mean Corpuscular HGB Conc 29.8 g/dL Low 32.0-35.0 [facility] Comment on above: Performed By: #### C K, BNP, HS TROP, PTT, PT #### [address] Microcytosis Marked Normal [facility] Comment on above: Performed By: #### C K, BNP, HS TROP, PTT, PT #### [address] Monocytes/100 WBC (Bld) 16.64 % Normal 0.00-20.00 [facility] Comment on above: Performed By: #### C K, BNP, HS TROP, PTT, PT #### [address] Myelocytes 1 % High 0-0 [facility] Comment on above: Performed By: #### C K, BNP, HS TROP, PTT, PT #### [address] Ovalocytes Slight Normal [facility] Comment on above: Performed By: #### C K, BNP, HS TROP, PTT, PT #### [address] Platelet Estimate Normal Normal Normal [facility] Comment on above: Performed By: #### C K, BNP, HS TROP, PTT, PT #### [address] Platelet Morphology Normal Normal Normal [facility] Comment on above: Result Comment: PERF ORMED BY: [place] [address] PATHOLOGIST CREDIT PRODUCTS OFFICER LILIANA CLAY M.D. Performed By: #### C K, BNP, HS TROP, PTT, PT #### [place] [address] [place] Poikilocytosis Moderate Normal [facility] Comment on above: Performed By: #### C K, BNP, HS TROP, PTT, PT #### [address] Polychromasia Slight Normal [facility] Comment on above: Performed By: #### C K, BNP, HS TROP, PTT, PT #### [facility] [address] Schistocytes Slight Normal [facility] Comment on above: Performed By: #### C K, BNP, HS TROP, PTT, PT #### [facility] [address] Sickle Cells Slight High None Seen [facility] Comment on above: Performed By: #### C K, BNP, HS TROP, PTT, PT #### [address] Target Cells Slight Normal [facility] Comment on above: Performed By: #### C K, BNP, HS TROP, PTT, PT #### [address] Tear Drop Cells Slight Normal [facility] Comment on above: Performed By: #### C K, BNP, HS TROP, PTT, PT #### [address] Dipstick and Microscopicon 0 03-30-2024 Bacteria,Urine 2+ High None Seen [facility] Comment on above: Order Comment: Name Collection Type:: Clean-Voided Midstream Performed By: #### C K, BNP, HS TROP, PTT, PT #### [address] Hyaline Casts,Urine 9-19 High 0-8 [facility] Comment on above: Order Comment: Name Collection Type:: Clean-Voided Midstream Performed By: #### C K, BNP, HS TROP, PTT, PT #### [place] [address] [place] Mucus,Urine Rare Normal [facility] Comment on above: Order Comment: Name Collection Type:: Clean-Voided Midstream Result Comment: PERF ORMED BY: [place] [address] PATHOLOGIST CREDIT PRODUCTS OFFICER LILIANA CLAY M.D. Performed By: #### C K, BNP, HS TROP, PTT, PT #### [address] RBC,Urine 1-2 Normal 0-4 [facility] Comment on above: Order Comment: Name Collection Type:: Clean-Voided Midstream Performed By: #### C K, BNP, HS TROP, PTT, PT #### [address] Squamous Epithelial Cell,Urine 10-19 High 0-2 [facility] Comment on above: Order Comment: Name Collection Type:: Clean-Voided Midstream Performed By: #### C K, BNP, HS TROP, PTT, PT #### [address] WBC,Urine 10-19 High 0-4 [facility] Comment on above: Order Comment: Name Collection Type:: Clean-Voided Midstream Performed By: #### C K, BNP, HS TROP, PTT, PT #### [address] Drug Screen,Urineon 03-30-20 24 Amphetamine Screen,Urine Negative Normal Negative [facility] Comment on above: Performed By: #### C K, BNP, HS TROP, PTT, PT #### [address] Barbiturate Screen,Urine Positive High Negative [facility] Comment on above: Performed By: #### C K, BNP, HS TROP, PTT, PT #### [address] Benzodiazepines Screen,Urine Negative Normal Negative [facility] Comment on above: Performed By: #### C K, BNP, HS TROP, PTT, PT #### [address] Cannabinoid Screen,Urine Positive High Negative [facility] Comment on above: Result Comment: Thes e are unconfirmed results and should not be used for legal purposes. Drug Cut-Off Concentration: AMPH 1000 ng/mL ALESSANDRO 200 ng/mL RHINA 200 ng/mL COCM 300 ng/mL OP 300 ng/mL PCP 25 ng/mL THC 20 ng/mL PERFORMED BY: [place] [address] PATHOLOGIST [employer]ER LILIANA CLAY M.D. Performed By: #### C K, BNP, HS TROP, PTT, PT #### [address] Cocaine Screen,Urine Negative Normal Negative [facility] Comment on above: Performed By: #### C K, BNP, HS TROP, PTT, PT #### [facility] [address] Opiate Screen,Urine Negative Normal Negative [facility] Comment on above: Performed By: #### C K, BNP, HS TROP, PTT, PT #### [address] Phencyclidine Screen,Urine Negative Normal Negative [facility] Comment on above: Performed By: #### C K, BNP, HS TROP, PTT, PT #### [address] ECH echo transthoracicon ECH echo transthoracic [facility] Main [place] [address] [place] [address] Echocardiogram Signed Patient: Essence Vincent MR#: [id number] : 1970 Acct:[id number] Age/Sex: 53 / F ADM Date: 03/30/24 Loc: Room: [address] [place] [address] Type: ADM INOo Attending Dr: Patrica Mcmahon MD Ordering Provider: Kristyn Russell APRN Date of Service: 03/30/2409/22/499 ECH/ECH echo transthoracic: chf, chest pain Copies to: Sherly Brewer MD, [facility] Kristyn Russell APRN Ordering Physician: Kristyn Russell Height: 64 in Weight: 156 lb Performed By: MICHAEL Walton BSA: 1.8 m2 BP: 131/80 mmHg HR: 79 Reason For Study: chf, chest pain History: Atrial Thrombus, CHF, COPD, Depression, Hypotension, SC, AICD, SVT, Mitral Valve Replacement, CABG, Ablation, [...] Electronically (more content not included)... Normal [facility] Eosinophils Auto (Bld) [#/Vo l]Ordered By: Pedro Melo on 03-30-2024 Eosinophils (Bld) [#/Vol] N/A [facility] Eosinophils/100 WBC Auto (Bl d)Ordered By: Pedro Melo on 03-30-2024 Eosinophils/100 WBC (Bld) N/A [facility] Eosinophils/100 leukocytes i n Blood by Manual countOrdered By: Pedro Melo on 03-30-2024 Eosinophils/100 WBC (Bld) 2 % Normal 1-3 [facility] Comment on above: Performed By: #### C K, BNP, HS TROP, PTT, PT #### [address] Epithelial cells.squamous [# /area] in Urine sediment by Automated countOrdered By: Pedro Melo on 03-30-2024 Epithelial cells.squamous Auto (Urine sed) [#/Area] 10-19 [HPF] High 0-2 [facility] Erythrocyte distribution wid th [Ratio] by Automated countOrdered By: Kristyn Russell on 03-30-2024 Erythrocyte distribution width (RBC) [Ratio] 20.4 % High 11.9-15.3 [facility] Comment on above: Performed By: #### C K, BNP, HS TROP, PTT, PT #### [facility] [address] [place] [address] Erythrocyte distribution wid th [Ratio] by Automated countOrdered By: Pedro Melo on 03-30-2024 Erythrocyte distribution width (RBC) [Ratio] 20.5 % High 11.9-15.3 [facility] Comment on above: Performed By: #### C K, BNP, HS TROP, PTT, PT #### [address] Erythrocyte sickle cell dete ctionOrdered By: Pedro Melo on 03-30-2024 Sickle cells LM Ql (Bld) Slight High None Seen [facility] Erythrocytes [#/area] in Uri ne sediment by Automated countOrdered By: Pedro Melo on 03-30-2024 RBC Auto (Urine sed) [#/Area] 1-2 [HPF] 0-4 [facility] Erythrocytes [#/volume] in B lood by Automated countOrdered By: Kristyn Russell on 03-30-2024 RBC (Bld) [#/Vol] 5.05 10*6/uL High 3.60-5.00 [facility] Comment on above: Performed By: #### C K, BNP, HS TROP, PTT, PT #### [address] Erythrocytes [#/volume] in B lood by Automated countOrdered By: Pedro Melo on 03-30-2024 RBC (Bld) [#/Vol] 5.00 10*6/uL Normal 3.60-5.00 [facility] Comment on above: Performed By: #### C K, BNP, HS TROP, PTT, PT #### [address] Ferritin [Mass/volume] in Se rum or PlasmaOrdered By: Kristyn Russell on 03-30-2024 Ferritin [Mass/Vol] 18.6 ng/mL Normal 11.0-306.8 [facility] Comment on above: Performed By: #### M G, TSH3, FE and TIBC, LIPID, SCAN CBC, NEHAL, BMP #### [facility] [address] [place] [id number] [place] Giant platelets/100 leukocyt es [Ratio] in Blood by Manual countOrdered By: Pedro Melo on 03-30-2024 Giant platelets/100 WBC Manual cnt (Bld) [Ratio] 5 /100{WBC} [facility] Glucose [Mass/volume] in Ser um or PlasmaOrdered By: Kristyn Russell on 03-30-2024 Glucose [Mass/Vol] 83 mg/dL Normal 70-100 [facility] Comment on above: ADA recommended refe rence rangeRandom Glucose Reference Range is dependent on time and content of last meal. Glucose of more than 200 mg/dL in a nonstressed, ambulatory subject supports the diagnosis of Diabetes Mellitus. Result Comment: [place] om Glucose Reference Range is dependent on time and content of last meal. Glucose of more than 200 mg/dL in a nonstressed, ambulatory subject supports the diagnosis of Diabetes Mellitus. ADA recommended reference range Performed By: #### M G, TSH3, FE and TIBC, LIPID, SCAN CBC, NEHAL, BMP #### [facility] [address] [place] [id number] [place] Glucose [Mass/volume] in Ser um or PlasmaOrdered By: Pedro Melo on 03-30-2024 Glucose [Mass/Vol] 126 mg/dL High 70-100 [facility] Comment on above: ADA recommended refe rence rangeRandom Glucose Reference Range is dependent on time and content of last meal. Glucose of more than 200 mg/dL in a nonstressed, ambulatory subject supports the diagnosis of Diabetes Mellitus. Result Comment: [place] om Glucose Reference Range is dependent on time and content of last meal. Glucose of more than 200 mg/dL in a nonstressed, ambulatory subject supports the diagnosis of Diabetes Mellitus. ADA recommended reference range Performed By: #### C K, BNP, HS TROP, PTT, PT #### [facility] [address] [place] [id number] [place] Glucose [Mass/volume] in Uri ne by Test stripOrdered By: Pedro Melo on 03-30-2024 Glucose Test strip (U) [Mass/Vol] Normal mg/dL Normal [facility] Helmet cell detectionOrdered By: Kristyn Russell on 03-30-2024 Helmet cells LM Ql (Bld) Slight [facility] Hematocrit [Volume Fraction] of Blood by Automated countOrdered By: Kristyn Russell on 03-30-2024 Hematocrit (Bld) [Volume fraction] 31.6 % Low 34.0-46.4 [facility] Comment on above: Performed By: #### C K, BNP, HS TROP, PTT, PT #### [address] Hematocrit [Volume Fraction] of Blood by Automated countOrdered By: Pedro Melo on 03-30-2024 Hematocrit (Bld) [Volume fraction] 31.3 % Low 34.0-46.4 [facility] Comment on above: Performed By: #### C K, BNP, HS TROP, PTT, PT #### [address] Hemoglobin Test strip Ql (U) Ordered By: Pedro Melo on 03-30-2024 Hemoglobin Ql (U) Trace High Negative [facility] Hemoglobin [Mass/volume] in BloodOrdered By: Kristyn Russell on 03-30-2024 Hemoglobin (Bld) [Mass/Vol] 9.5 g/dL Low 11.8-15.4 [facility] Comment on above: Performed By: #### C K, BNP, HS TROP, PTT, PT #### [address] Hemoglobin [Mass/volume] in BloodOrdered By: Pedro Melo on 03-30-2024 Hemoglobin (Bld) [Mass/Vol] 9.3 g/dL Low 11.8-15.4 [facility] Comment on above: Performed By: #### C K, BNP, HS TROP, PTT, PT #### [place] [address] [place] Hyaline casts [#/area] in Ur ine sediment by Automated countOrdered By: Pedro Melo on 03-30-2024 Hyaline casts Auto (Urine sed) [#/Area] 9-19 [LPF] High 0-8 [facility] Hypochromia LM Ql (Bld)Order ed By: Kristyn Russell on 03-30-2024 Hypochromia Ql (Bld) Marked [facility] Hypochromia LM Ql (Bld)Order ed By: Pedro Melo on 03-30-2024 Hypochromia Ql (Bld) Marked [facility] INR in Platelet poor plasma by Coagulation assayOrdered By: Kristyn Russell on 03-30-2024 INR Coag (PPP) [Relative time] 1.1 {INR} Normal [facility] Comment on above: INR Therapeutic [...] heart valves: 3 - 4.5 PERFORMED BY: [place] [address] PATHOLOGIST [employer]ER LILIANA CLAY M.D. Performed By: #### C K, BNP, HS TROP, PTT, PT #### [address] INR in Platelet poor plasma by Coagulation assayOrdered By: Pedro Melo on 03-30-2024 INR Coag (PPP) [Relative time] 1.1 {INR} Normal [facility] Comment on above: INR Therapeutic [...] K, BNP, HS TROP, PTT, PT #### [facility] [address] Iron [Mass/volume] in Serum or PlasmaOrdered By: Kristyn Russell on 03-30-2024 Iron [Mass/Vol] 19 ug/dL Low 50-212 [facility] Comment on above: Performed By: #### M G, TSH3, FE and TIBC, LIPID, SCAN CBC, NEHAL, BMP #### [facility] [address] Iron and TIBC Profileon 08- % Iron Saturation 3.7 % Low 20-50 [facility] Comment on above: Performed By: #### M G, TSH3, FE and TIBC, LIPID, SCAN CBC, NEHAL, BMP #### [facility] [address] Total Iron Binding Capacity 512 ug/dL High 255-450 [facility] Comment on above: Performed By: #### M G, TSH3, FE and TIBC, LIPID, SCAN CBC, NEHAL, BMP #### [facility] [address] [place] [id number] [facility] Iron binding capacity [Mass/ volume] in Serum or PlasmaOrdered By: Kristyn Russell on 03-30-2024 Iron binding capacity [Mass/Vol] 512 ug/dL High 255-450 [facility] Iron saturation [Mass Fracti on] in Serum or PlasmaOrdered By: Kristyn Russell on 03-30-2024 Iron saturation [Mass fraction] 3.7 % Low 20-50 [facility] Ketones [Presence] in Urine by Test stripOrdered By: Pedro Melo on 03-30-2024 Ketones Ql (U) Negative Normal Negative [facility] Comment on above: Order Comment: Name Collection Type:: Clean-Voided Midstream Performed By: #### C K, BNP, HS TROP, PTT, PT #### [facility] [address] [place] [id number] [facility] Siddharth 03-30-2024 L Specimen: [id number] Received: 03/30/24 Status: YADIRA Crocker Num: [id number] Spec Type: Impression Subm Dr: Pedro Melo DO Tissues: PATHPER Procedures: PATHREVIEW Age/ Patient Sex Location Account Attending Physician Essence Vincent 53/F 3T [id number] Patrica Mcmahon MD SPEC NUM: [id number] RECD: 03/30/24 STATUS: YADIRA KRYS NUM: [id number] MAC: 03/30/24 DR: Pedro Melo DO ENTERED: 03/30/[address]: SPEC TYPE: Impression DEPT: [place] ENTERED BY: [id number] RECV BY: [id number] ORDERED: PATHREVIEW ORDERED: PATHREVIEW Pathologist Review Microcytic Anemia Is Noted. Differential Diagnosis Includes Iron Deficiency Vs. Alpha Or Beta Thalassemia. Correlation With Iron Studies And Hemoglobin Electrophoresis Results Is Suggested. [id number] Specimen: [id number] Received: 03/30/24 Status: MIGUELOk Crocker Num: [id number] Spec Type: Impression Subm Dr: Pedro Melo DO Tissues: PATHPER Procedures: PATHREVIEW Patient: Essence Vincent [id number] (Continued) Signed (signature on file) Zacarias Ocampo MD 03/30/24 1505 Normal [facility] Leukocyte esterase [Presence ] in Urine by Test stripOrdered By: Pedro Melo on 03-30-2024 Leukocyte esterase Test strip Ql (U) 3+ High Negative [facility] Comment on above: Order Comment: Name Collection Type:: Clean-Voided Midstream Performed By: #### C K, BNP, HS TROP, PTT, PT #### [facility] [address] Leukocytes [#/area] in Urine sediment by Automated countOrdered By: Pedro Melo on 03-30-2024 WBC Auto (Urine sed) [#/Area] 10-19 [HPF] High 0-4 [facility] Leukocytes [#/volume] correc janis for nucleated erythrocytes in Blood by Automated counOrdered By: Kristyn Russell on 03-30-2024 WBC corrected for nucl RBC Auto (Bld) [#/Vol] 11.1 10*3/uL 3.8-11.6 [facility] Leukocytes [#/volume] correc janis for nucleated erythrocytes in Blood by Automated counOrdered By: Pedro Melo on 03-30-2024 WBC corrected for nucl RBC Auto (Bld) [#/Vol] 9.7 10*3/uL 3.8-11.6 [facility] Leukocytes [#/volume] in Blo od by Automated countOrdered By: Kristyn Russell on 03-30-2024 WBC (Bld) [#/Vol] 11.1 10*3/uL Normal 3.8-11.6 [facility] Comment on above: Performed By: #### C K, BNP, HS TROP, PTT, PT #### [facility] [address] Leukocytes [#/volume] in Blo od by Automated countOrdered By: Pedro Melo on 03-30-2024 WBC (Bld) [#/Vol] 9.7 10*3/uL Normal 3.8-11.6 [facility] Comment on above: Performed By: #### C K, BNP, HS TROP, PTT, PT #### [facility] [address] Lipid Panelon 03-30-2024 LDL Cholesterol,Calculated 38 mg/dL Normal 0-100 [facility] Comment on above: Result Comment: LDL ATP III CLASSIFICATION LDL less than 100 mg/dL Optimal LDL 100-129 mg/dL Near or above optimal LDL 130-159 mg/dL Borderline high LDL 160-189 mg/dL High LDL greater than 189 mg/dL Very high Performed By: #### C K, BNP, HS TROP, PTT, PT #### [address] Triglyceride w/Reflex 59 mg/dL Normal 0-149 [facility] Comment on above: Result Comment: TRIG ATP III CLASSIFICATION TRIG less than 150 mg/dL Normal TRIG 150-199 mg/dL Borderline high TRIG 200-500 mg/dL High TRIG greater than 500 mg/dL Very high Standard traceable to the Center for Disease Conrtrol and Prevention (CDC) test method. Performed By: #### C K, BNP, HS TROP, PTT, PT #### [facility] [address] [place] [id number] [facility] VLDL CHOLESTEROL 11 mg/dL Normal [facility] Comment on above: Performed By: #### C K, BNP, HS TROP, PTT, PT #### [facility] [address] [place] [address] [place] Lymphocytes Auto (Bld) [#/Vo l]Ordered By: Pedro Melo on 03-30-2024 Lymphocytes (Bld) [#/Vol] N/A [facility] Lymphocytes [#/volume] in Bl ood by Automated countOrdered By: Kristyn Russell on 03-30-2024 Lymphocytes (Bld) [#/Vol] 1.6 10*3/uL Normal 1.00-4.8 [facility] Comment on above: Performed By: #### C K, BNP, HS TROP, PTT, PT #### [facility] [address] [place] [address] [place] Lymphocytes/100 WBC Auto (Bl d)Ordered By: Pedro Melo on 03-30-2024 Lymphocytes/100 WBC (Bld) N/A [facility] Lymphocytes/100 leukocytes i n Blood by Automated countOrdered By: Kristyn Russell on 03-30-2024 Lymphocytes/100 WBC (Bld) 14.4 % Normal . [facility] Comment on above: Performed By: #### C K, BNP, HS TROP, PTT, PT #### [facility] [address] [place] [address] [place] Lymphocytes/100 leukocytes i n Blood by Manual countOrdered By: Pedro Melo on 03-30-2024 Lymphocytes/100 WBC (Bld) 13 % Low 18-42 [facility] Comment on above: Performed By: #### C K, BNP, HS TROP, PTT, PT #### [facility] [address] [place] [address] [place] MCH [Entitic mass] by Automa janis countOrdered By: Kristyn Russell on 03-30-2024 MCH (RBC) [Entitic mass] 18.8 pg Low 24.7-34.3 [facility] Comment on above: Performed By: #### C K, BNP, HS TROP, PTT, PT #### [facility] [address] [place] [address] [place] MCH [Entitic mass] by Automa janis countOrdered By: Pedro Melo on 03-30-2024 MCH (RBC) [Entitic mass] 18.6 pg Low 24.7-34.3 [facility] Comment on above: Performed By: #### C K, BNP, HS TROP, PTT, PT #### [address] MCHC Auto (RBC) [Mass/Vol]Or dered By: Kristyn Russell on 03-30-2024 MCHC (RBC) [Mass/Vol] 30.0 g/dL Low 32.0-35.0 [facility] MCHC Auto (RBC) [Mass/Vol]Or dered By: Pedro Melo on 03-30-2024 MCHC (RBC) [Mass/Vol] 29.8 g/dL Low 32.0-35.0 [facility] MCV [Entitic volume] by Auto mated countOrdered By: Kristyn Russell on 03-30-2024 MCV (RBC) [Entitic vol] 62.5 fL Low 80-100 [facility] Comment on above: Performed By: #### C K, BNP, HS TROP, PTT, PT #### [address] MCV [Entitic volume] by Auto mated countOrdered By: Pedro Melo on 03-30-2024 MCV (RBC) [Entitic vol] 62.7 fL Low 80-100 [facility] Comment on above: Performed By: #### C K, BNP, HS TROP, PTT, PT #### [address] Magnesium [Mass/volume] in S daisy or PlasmaOrdered By: Kristyn Russell on 03-30-2024 Magnesium [Mass/Vol] 1.8 mg/dL Low 1.9-2.7 [facility] Comment on above: Performed By: #### M G, TSH3, FE and TIBC, LIPID, SCAN CBC, NEHAL, BMP #### [address] Manual blood segmented neutr ophils/100 leukocytesOrdered By: Pedro Melo on 03-30-2024 Segmented neutrophils/100 WBC (Bld) 77 % High 50-70 [facility] Comment on above: Performed By: #### C K, BNP, HS TROP, PTT, PT #### [facility] [address] Microcytes LM Ql (Bld)Ordere d By: Kristyn Russell on 03-30-2024 Microcytes Ql (Bld) Marked [facility] Microcytes LM Ql (Bld)Ordere d By: Pedro Melo on 03-30-2024 Microcytes Ql (Bld) Marked [facility] Monocyte distribution width [Entitic volume] in Blood by AutomatedOrdered By: Pedro Melo on 03-30-2024 Monocyte distribution width Auto (Bld) [Entitic vol] 16.64 % 0.00-20.00 [facility] Monocytes Auto (Bld) [#/Vol] Ordered By: Pedro Melo on 03-30-2024 Monocytes (Bld) [#/Vol] N/A [facility] Monocytes/100 WBC Auto (Bld) Ordered By: Pedro Melo on 03-30-2024 Monocytes/100 WBC (Bld) N/A [facility] Monocytes/100 leukocytes in Blood by Manual countOrdered By: Pedro Melo on 03-30-2024 Monocytes/100 WBC (Bld) 5 % Normal 2-11 [facility] Comment on above: Performed By: #### C K, BNP, HS TROP, PTT, PT #### [facility] [address] [place] [address] Mucus [Presence] in Urine by AutomatedOrdered By: Pedro Melo on 03-30-2024 Mucus Auto Ql (U) Rare [LPF] [facility] Myelocytes/100 WBC Manual cn t (Bld)Ordered By: Pedro Melo on 03-30-2024 Myelocytes/100 WBC (Bld) 1 % High 0-0 [facility] Neutrophils Auto (Bld) [#/Vo l]Ordered By: Pedro Melo on 03-30-2024 Neutrophils (Bld) [#/Vol] N/A [facility] Neutrophils [#/volume] in Bl ood by Automated countOrdered By: Kristyn Russell on 03-30-2024 Neutrophils (Bld) [#/Vol] 8.3 10*3/uL High 1.8-7.7 [facility] Comment on above: Performed By: #### C K, BNP, HS TROP, PTT, PT #### [facility] [address] Neutrophils/100 WBC Auto (Bl d)Ordered By: Pedro Melo on 03-30-2024 Neutrophils/100 WBC (Bld) N/A [facility] Nitrite Test strip Ql (U)Ord ered By: Pedro Melo on 03-30-2024 Nitrite Ql (U) Negative Negative [facility] No Panel InformationOrdered By: Kristyn Russell on 03-30-2024 Estimated GFR (CKD-EPI) > 60.0 mL/Min [facility] Creatinine Clearance (Chem 62.62 [facility] No Panel InformationOrdered By: Pedro Melo on 03-30-2024 Estimated GFR (CKD-EPI) > 60.0 mL/Min [facility] Creatinine Clearance (Chem 58.60 [facility] Slides for Pathologist Review Ordered path review [facility] Nucleated erythrocytes [Pres ence] in Blood by Automated countOrdered By: Kristyn Russell on 03-30-2024 Nucleated RBC Auto Ql (Bld) 0.0 /100{WBC} 0-0.5 [facility] Nucleated erythrocytes [Pres ence] in Blood by Automated countOrdered By: Pedro Melo on 03-30-2024 Nucleated RBC Auto Ql (Bld) N/A [facility] Opiates [Presence] in Urine by Screen methodOrdered By: Pedro Melo on 03-30-2024 Opiates Screen Ql (U) Negative Negative [facility] Ovalocyte detectionOrdered B y: Kristyn Russell on 03-30-2024 Ovalocytes LM Ql (Bld) Slight Fi [facility] Ovalocyte detectionOrdered B y: Pedro Melo on 03-30-2024 Ovalocytes LM Ql (Bld) Slight Fi [facility] Partial Thromboplastin Timeo n 03-30-2024 aPTT Coag (Bld) [Time] 25.3 s Normal 25.1-36.5 [facility] Comment on above: Result Comment: A he matocrit value greater than 55% may lead to inaccurate results in coagulation testing. Patients having hematocrit values >55% require a special collection tube for coagulation studies. Please contact the laboratory at [phone] for redraw instructions. PERFORMED BY: [place] [address] PATHOLOGIST [employer]ICER LILIANA CLAY M.D. Performed By: #### C K, BNP, HS TROP, PTT, PT #### [address] Pathologist Slide Reviewon 0 03-30-2024 Pathologist Slide Review Ordered Path Review Normal [facility] Comment on above: Result Comment: PERF ORMED BY: [place] [address] PATHOLOGIST [employer]ICER LILIANA CLAY M.D. Performed By: #### C K, BNP, HS TROP, PTT, PT #### [place] [id number] [facility] Phencyclidine Screen Ql (U)O rdered By: Pedro Melo on 03-30-2024 Phencyclidine Ql (U) Negative Negative [facility] Platelet adequacy [Presence] in Blood by Light microscopyOrdered By: Kristyn Russell on 03-30-2024 Platelets LM Ql (Bld) Normal Normal [facility] Platelet adequacy [Presence] in Blood by Light microscopyOrdered By: Pedro Melo on 03-30-2024 Platelets LM Ql (Bld) Normal Normal [facility] Platelet mean volume [Entiti c volume] in Blood by Automated countOrdered By: Kristyn Russell on 03-30-2024 Platelet mean volume (Bld) [Entitic vol] 9.3 fL Normal 6.3-10.7 [facility] Comment on above: Performed By: #### C K, BNP, HS TROP, PTT, PT #### [address] Platelet mean volume [Entiti c volume] in Blood by Automated countOrdered By: Pedro Melo on 03-30-2024 Platelet mean volume (Bld) [Entitic vol] 8.7 fL Normal 6.3-10.7 [facility] Comment on above: Performed By: #### C K, BNP, HS TROP, PTT, PT #### [facility] [address] [place] [address] Platelet morphology finding [Identifier] in BloodOrdered By: Kristyn Russell on 03-30-2024 Platelet morphology finding Nom (Bld) Normal Normal [facility] Platelet morphology finding [Identifier] in BloodOrdered By: Pedro Melo on 03-30-2024 Platelet morphology finding Nom (Bld) Normal Normal [facility] Platelets [#/volume] in Bloo d by Automated countOrdered By: Kristyn Russell on 03-30-2024 Platelets (Bld) [#/Vol] 247 10*3/uL Normal 150-450 [facility] Comment on above: Performed By: #### C K, BNP, HS TROP, PTT, PT #### [facility] [address] [place] [address] Platelets [#/volume] in Bloo d by Automated countOrdered By: Pedro Melo on 03-30-2024 Platelets (Bld) [#/Vol] 264 10*3/uL Normal 150-450 [facility] Comment on above: Performed By: #### C K, BNP, HS TROP, PTT, PT #### [facility] [address] [place] [address] Poikilocytosis [Presence] in Blood by Light microscopyOrdered By: Kristyn Russell on 03-30-2024 Poikilocytosis LM Ql (Bld) [facility] Poikilocytosis [Presence] in Blood by Light microscopyOrdered By: Pedro Melo on 03-30-2024 Poikilocytosis LM Ql (Bld) Moderate [facility] Polychromasia [Presence] in Blood by Light microscopyOrdered By: Kristyn Russell on 03-30-2024 Polychromasia LM Ql (Bld) Marked [facility] Polychromasia [Presence] in Blood by Light microscopyOrdered By: Pedro Melo on 03-30-2024 Polychromasia LM Ql (Bld) Slight [facility] Potassium [Moles/volume] in Serum or PlasmaOrdered By: Kristyn Russell on 03-30-2024 Potassium [Moles/Vol] 4.4 mmol/L Normal 3.5-5.1 [facility] Comment on above: Performed By: #### M G, TSH3, FE and TIBC, LIPID, SCAN CBC, NEHAL, BMP #### [facility] [address] Potassium [Moles/volume] in Serum or PlasmaOrdered By: Pedro Melo on 03-30-2024 Potassium [Moles/Vol] 3.3 mmol/L Low 3.5-5.1 [facility] Comment on above: Performed By: #### C K, BNP, HS TROP, PTT, PT #### [facility] [address] [place] [address] [facility] Protein Test strip (U) [Mass /Vol]Ordered By: Pedro Melo on 03-30-2024 Protein (U) [Mass/Vol] Negative Negative [facility] Prothrombin time (PT)Ordered By: Kristyn Russell on 03-30-2024 PT Coag (PPP) [Time] 12.5 s Normal 9.0-12.9 [facility] Comment on above: A hematocrit value g reater than 55% may lead to inaccurate results in coagulation testing. Patients having hematocrit values >55% require a special collection tube for coagulation studies. Please contact the laboratory at [phone] for redraw instructions. Result Comment: A he matocrit value greater than 55% may lead to inaccurate results in coagulation testing. Patients having hematocrit values >55% require a special collection tube for coagulation studies. Please contact the laboratory at [phone] for redraw instructions. Performed By: #### C K, BNP, HS TROP, PTT, PT #### [facility] [address] [place] [address] [facility] Prothrombin time (PT)Ordered By: Pedro Melo on 03-30-2024 PT Coag (PPP) [Time] 12.9 s Normal 9.0-12.9 [facility] Comment on above: A hematocrit value g reater than 55% may lead to inaccurate results in coagulation testing. Patients having hematocrit values >55% require a special collection tube for coagulation studies. Please contact the laboratory at [phone] for redraw instructions. Result Comment: A he matocrit value greater than 55% may lead to inaccurate results in coagulation testing. Patients having hematocrit values >55% require a special collection tube for coagulation studies. Please contact the laboratory at [phone] for redraw instructions. Performed By: #### C K, BNP, HS TROP, PTT, PT #### [address] RBC morphologyOrdered By: Mayo Russell on 03-30-2024 RBC morphology finding Nom (Bld) N/A [facility] RBC morphologyOrdered By: William Melo on 03-30-2024 RBC morphology finding Nom (Bld) N/A [facility] Scan and CBCon 03-30-2024 Acanthocytes Slight Normal [facility] Comment on above: Performed By: #### C K, BNP, HS TROP, PTT, PT #### [address] Crenated RBC Slight Normal [facility] Comment on above: Performed By: #### C K, BNP, HS TROP, PTT, PT #### [address] Helmet Cells Slight Normal [facility] Comment on above: Performed By: #### C K, BNP, HS TROP, PTT, PT #### [address] Hypochromasia Marked Normal [facility] Comment on above: Performed By: #### C K, BNP, HS TROP, PTT, PT #### [address] Mean Corpuscular HGB Conc 30.0 g/dL Low 32.0-35.0 [facility] Comment on above: Performed By: #### C K, BNP, HS TROP, PTT, PT #### [address] Microcytosis Marked Normal [facility] Comment on above: Performed By: #### C K, BNP, HS TROP, PTT, PT #### [address] NRBC% 0.0 /100{WBC} Normal 0-0.5 [facility] Comment on above: Performed By: #### C K, BNP, HS TROP, PTT, PT #### [address] Ovalocytes Slight Normal [facility] Comment on above: Performed By: #### C K, BNP, HS TROP, PTT, PT #### [address] Platelet Estimate Normal Normal Normal [facility] Comment on above: Performed By: #### C K, BNP, HS TROP, PTT, PT #### [address] Platelet Morphology Normal Normal Normal [facility] Comment on above: Result Comment: PERF ORMED BY: [place] [address] PATHOLOGIST [employer] LILIANA CLAY M.D. Performed By: #### C K, BNP, HS TROP, PTT, PT #### [address] Poikilocytosis Moderate Normal [facility] Comment on above: Performed By: #### C K, BNP, HS TROP, PTT, PT #### [address] Polychromasia Marked Normal [facility] Comment on above: Performed By: #### C K, BNP, HS TROP, PTT, PT #### [address] Target Cells Slight Normal [facility] Comment on above: Performed By: #### C K, BNP, HS TROP, PTT, PT #### [address] Schistocytes [Presence] in B lood by Light microscopyOrdered By: Pedro Melo on 03-30-2024 Schistocytes LM Ql (Bld) Slight [facility] Serum or plasma anion gap de terminationOrdered By: Kristyn Russell on 03-30-2024 Anion gap [Moles/Vol] 13.0 mmol/L Normal 6.0-15.0 [facility] Comment on above: Performed By: #### M G, TSH3, FE and TIBC, LIPID, SCAN CBC, NEHAL, BMP #### [facility] [address] [place] [address] Serum or plasma anion gap de terminationOrdered By: Pedro Melo on 03-30-2024 Anion gap [Moles/Vol] 12.4 mmol/L Normal 6.0-15.0 [facility] Comment on above: Performed By: #### C K, BNP, HS TROP, PTT, PT #### [address] Serum or plasma high density lipoprotein (HDL) cholesterol measurementOrdered By: Kristyn Russell on 03-30-2024 Cholesterol in HDL [Mass/Vol] 39 mg/dL Normal 23-92 [facility] Comment on above: HDL CHOL ATP-III CLA SSIFICATION Cardiovascular RiskHDL > or equal to 60 mg/dL LOWHDL < 40 mg/dL HIGH Result Comment: HDL CHOL ATP-III CLASSIFICATION Cardiovascular Risk HDL > or equal to 60 mg/dL LOW HDL < 40 mg/dL HIGH Performed By: #### C K, BNP, HS TROP, PTT, PT #### [facility] [address] [place] [address] Serum or plasma total choles terol/high density lipoprotein (HDL) cholesterol mass ratOrdered By: Kristyn Russell on 03-30-2024 Cholesterol.total/Chol esterol in HDL [Mass ratio] 2.3 {ratio} Normal <5.0 [facility] Comment on above: Performed By: #### C K, BNP, HS TROP, PTT, PT #### [address] Sodium [Moles/volume] in Ser um or PlasmaOrdered By: Kristyn Russell on 03-30-2024 Sodium [Moles/Vol] 136 mmol/L Normal 136-145 [facility] Comment on above: Performed By: #### M G, TSH3, FE and TIBC, LIPID, SCAN CBC, NEHAL, BMP #### [facility] [address] [place] [address] [place] Sodium [Moles/volume] in Ser um or PlasmaOrdered By: Pedro Melo on 03-30-2024 Sodium [Moles/Vol] 137 mmol/L Normal 136-145 [facility] Comment on above: Performed By: #### C K, BNP, HS TROP, PTT, PT #### [facility] [address] Specific gravity Test strip (U) [Rel density]Ordered By: Pedro Melo on 03-30-2024 Specific gravity (U) [Rel density] 1.016 1.001-1.03 0 [facility] Target cellsOrdered By: Aram [place] on 03-30-2024 Target cells LM Ql (Bld) Slight [facility] Target cellsOrdered By: Isai Melo on 03-30-2024 Target cells LM Ql (Bld) Slight [facility] Teardrop cell detectionOrder ed By: Pedro Melo on 03-30-2024 Dacrocytes LM Ql (Bld) Slight [facility] Thyrotropin [Units/volume] i n Serum or PlasmaOrdered By: Kristyn Russell on 03-30-2024 TSH Qn 5.94 m[IU]/L High 0.45-5.33 [facility] Comment on above: Result Comment: PERF ORMED BY: [place] [address] PATHOLOGIST [employer] LILIANA CLAY M.D. Performed By: #### C K, BNP, HS TROP, PTT, PT #### [facility] [address] [place] [address] [place] Transferrin [Mass/volume] in Serum or PlasmaOrdered By: Kristyn Russell on 03-30-2024 Transferrin [Mass/Vol] 366 mg/dL High 203-362 [facility] Comment on above: Performed By: #### M G, TSH3, FE and TIBC, LIPID, SCAN CBC, NEHAL, BMP #### [facility] [address] Triglyceride [Mass/volume] i n Serum or PlasmaOrdered By: Kristyn Russell on 03-30-2024 Triglyceride [Mass/Vol] 59 mg/dL 0-149 [facility] Comment on above: TRIG ATP III CLASSIF ICATIONTRIG less than 150 mg/dL NormalTRIG 150-199 mg/dL Borderline highTRIG 200-500 mg/dL High TRIG greater than 500 mg/dL Very highStandard traceable to the Center for Disease Conrtrol and Prevention (CDC) test method. Troponin I High Sensitivityo n 03-30-2024 Troponin I High Sensitivity 15.4 pg/mL High 0.0-15.0 [facility] Comment on above: Result Comment: PERF ORMED BY: [place] [address] PATHOLOGIST [employer] LILIANA CLAY M.D. Performed By: #### C K, BNP, HS TROP, PTT, PT #### [address] Troponin I High Sensitivity 17.5 pg/mL High 0.0-15.0 [facility] Comment on above: Result Comment: PERF ORMED BY: [place] [address] PATHOLOGIST [employer] LILIANA CLAY M.D. Performed By: #### C K, BNP, HS TROP, PTT, PT #### [address] Troponin I High Sensitivity 14.0 pg/mL Normal 0.0-15.0 [facility] Comment on above: Result Comment: PERF ORMED BY: [place] [address] PATHOLOGIST [employer] LILIANA CLAY M.D. Performed By: #### C K, BNP, HS TROP, PTT, PT #### [address] Troponin I.cardiac [Mass/vol ume] in Serum or Plasma by Detection limit <= 0.01 ng/Ordered By: Kendrick Jorgensen on 03-30-2024 Troponin I.cardiac DL <= 0.01 ng/mL [Mass/Vol] 15.4 pg/mL High 0.0-15.0 [facility] Troponin I.cardiac [Mass/vol ume] in Serum or Plasma by Detection limit <= 0.01 ng/Ordered By: Pedro Melo on 03-30-2024 Troponin I.cardiac DL <= 0.01 ng/mL [Mass/Vol] 14.0 pg/mL 0.0-15.0 [facility] Urea nitrogen [Mass/volume] in Serum or PlasmaOrdered By: Kristyn Russell on 03-30-2024 Urea nitrogen [Mass/Vol] 25 mg/dL Normal 03-23 [facility] Comment on above: Performed By: #### M G, TSH3, FE and TIBC, LIPID, SCAN CBC, NEHAL, BMP #### [facility] [address] [place] [address] [place] Urea nitrogen [Mass/volume] in Serum or PlasmaOrdered By: Pedro Melo on 03-30-2024 Urea nitrogen [Mass/Vol] 27 mg/dL High 03-23 [facility] Comment on above: Performed By: #### C K, BNP, HS TROP, PTT, PT #### [place] [id number] [place] Urinalysison 03-30-2024 Bilirubin,Urine Negative Normal Negative [facility] Comment on above: Order Comment: Name Collection Type:: Clean-Voided Midstream Performed By: #### C K, BNP, HS TROP, PTT, PT #### [facility] [address] [place] [address] [place] Glucose Ql (U) Normal Normal Normal [facility] Comment on above: Order Comment: Name Collection Type:: Clean-Voided Midstream Performed By: #### C K, BNP, HS TROP, PTT, PT #### [facility] [address] [place] [id number] [place] Nitrite,Urine Negative Normal Negative [facility] Comment on above: Order Comment: Name Collection Type:: Clean-Voided Midstream Performed By: #### C K, BNP, HS TROP, PTT, PT #### [address] Occult Blood,Urine Trace High Negative [facility] Comment on above: Order Comment: Name Collection Type:: Clean-Voided Midstream Result Comment: PERF ORMED BY: [place] [address] PATHOLOGIST [employer] LILIANA CLAY M.D. Performed By: #### C K, BNP, HS TROP, PTT, PT #### [address] Protein,Urine Negative Normal Negative [facility] Comment on above: Order Comment: Name Collection Type:: Clean-Voided Midstream Performed By: #### C K, BNP, HS TROP, PTT, PT #### [address] Specificy [place],Urine 1.016 Normal 1.001-1.03 0 [facility] Comment on above: Order Comment: Name Collection Type:: Clean-Voided Midstream Performed By: #### C K, BNP, HS TROP, PTT, PT #### [address] Urobilinogen,Urine Normal Normal Normal [facility] Comment on above: Order Comment: Name Collection Type:: Clean-Voided Midstream Performed By: #### C K, BNP, HS TROP, PTT, PT #### [address] Urine Cultureon 03-30-2024 Bacteria identified Cx Nom (U) ORGANISM: Proteus mirabilis (O:PROMIR) [place] Count >100,000 Aerobic RAFAEL Charge (NMIC56) SUSCEPTIBILITY [...] RESISTANT TO ALL B-LACTAM DRUGS. PERFORMED BY: [place] [address] PATHOLOGIST [employer] LILIANA CLAY M.D. Normal [facility] Comment on above: Performed By: #### C K, BNP, HS TROP, PTT, PT #### [place] [address] [place] Urine appearanceOrdered By: Pedro Melo on 03-30-2024 Appearance (U) Clear Normal Clear [facility] Comment on above: Order Comment: Name Collection Type:: Clean-Voided Midstream Performed By: #### C K, BNP, HS TROP, PTT, PT #### [place] [address] [place] Urobilinogen Test strip (U) [Mass/Vol]Ordered By: Pedro Melo on 03-30-2024 Urobilinogen (U) [Mass/Vol] Normal mg/dL Normal [facility] XR chest 2V*on 03-30-2024 XR chest 2V* [facility] Main [place] [address] [place] [address] XRay Report Signed Patient: Essence Vincent MR#: [id number] : 1970 Acct:[id number] Age/Sex: 53 / F ADM Date: 03/30/24 Loc: Room: 3V5769-1 Type: ADM INOo Attending Dr: Patrica Mcmahon [...] Christopher Walker M.D.03/30/2024 8:11 AM Dictation Location: [place] [address] Transcribed By: [facility] 03/30/24 08 Dictated By: Christopher Walker DO 03/30/24 08 Signed By: 03/30/24 0811 Normal [facility] pH of Urine by Test stripOrd ered By: Pedro Melo on 03-30-2024 pH (U) 6.5 [pH] Normal 5.0-9.0 [facility] Comment on above: Order Comment: Name Collection Type:: Clean-Voided Midstream Performed By: #### C K, BNP, HS TROP, PTT, PT #### [place] [address] [place] ECG 12 lead ECGon 03-29-2024 ECG 12 lead ECG [facility] Main [place] [address] [place] [address] Electrocardiograph Report Signed Patient: Essence Vincent MR#: [id number] : 1970 Acct:[id number] Age/Sex: 53 / F ADM Date: 03/29/24 Loc: ER Room: Type: [facility] ER Attending Dr: Ordering Provider: Pedro [...] rhythm with intermittent paced beats Confirmed by Perdo MELO DO ([id number]) on 03/30/2024 1:41:19 AM Referred By: Electronically Signed By: Pedro MELO DO Transcribed By: MUS Signed By Pedro Melo DO 0 03/30/24 0141 Normal [facility] Basophils Auto (Bld) [#/Vol] on 02-17-2024 Basophils (Bld) [#/Vol] 0.2 10 3/uL High 0.0-0.1 [facility] Basophils/100 WBC Auto (Bld) on 02-17-2024 Basophils/100 WBC (Bld) 1.7 % 0.2-2.0 [facility] Eosinophils/100 WBC Auto (Bl d)on 02-17-2024 Eosinophils/100 WBC (Bld) 0.9 % 0.9-7.0 [facility] Erythrocyte distribution wid th Auto (RBC) [Ratio]on 02-17-2024 Erythrocyte distribution width (RBC) [Ratio] 21.2 % High 11.0-15.0 [facility] Estimated glomerular filtrat ion rate (GFR) non- Americanon 02-17-2024 GFR/1.73 sq M.predicted among non-blacks MDRD (S/P/Bld) [Vol rate/Area] 50 mL/min/{1.73_m2} Low >=60 [facility] Globulin Calc (S) [Mass/Vol] on 02-17-2024 Globulin (S) [Mass/Vol] 4.3 g/dL [facility] Hematocrit Auto (Bld) [Volum e fraction]on 02-17-2024 Hematocrit (Bld) [Volume fraction] 34.1 % Low 36.0-48.0 [facility] Hemoglobin [Mass/volume] in Bloodon 02-17-2024 Hemoglobin (Bld) [Mass/Vol] 9.6 g/dL Low 12.0-16.0 [facility] INR in Platelet poor plasma by Coagulation assayon 02-17-2024 INR Coag (PPP) [Relative time] 2.68 {INR} [facility] Comment on above: DESIRED INR:2.0-3.0 CONDITIONS NOT LISTED BELOW2.5-3.5 FOR PROSTHETIC HEART VALVE REPLACEMENT2.5-3.5 RECURRENT THROMBOSIS Laboratory - Chemistry and C hemistry - challengeon 02-17-2024 Albumin [Mass/Vol] 3.6 g/dL 3.4-5.0 [facility] ALP [Catalytic activity/Vol] 347 U/L High 46-116 [facility] ALT [Catalytic activity/Vol] 26 U/L 14-59 [facility] AST [Catalytic activity/Vol] 43 U/L High 15-37 [facility] Bilirubin [Mass/Vol] 0.8 mg/dL 0.2-1.0 [facility] Calcium [Mass/Vol] 8.9 mg/dL 8.5-10.1 [facility] Chloride [Moles/Vol] 100 mmol/L 98-107 [facility] CO2 [Moles/Vol] 24.8 mmol/L 21.0-32.0 [facility] Creatinine [Mass/Vol] 1.13 mg/dL High 0.55-1.02 [facility] GFR/1.73 sq M.predicted MDRD (S/P/Bld) [Vol rate/Area] mL/min/{1.73_m2} >=60 [facility] Glucose [Mass/Vol] 112 mg/dL High 74-106 [facility] Potassium [Moles/Vol] 3.6 mmol/L 3.5-5.1 [facility] Protein [Mass/Vol] 7.9 g/dL 6.4-8.2 [facility] Sodium [Moles/Vol] 134 mmol/L Low 136-145 [facility] Urea nitrogen [Mass/Vol] 21.0 mg/dL High 7.0-18.0 [facility] Urea nitrogen/Creatinine [Mass ratio] 18.6 mg/mg [facility] Laboratory - Hematology and Cell countson 02-17-2024 Immature granulocytes/100 WBC (Bld) 0.2 % 0.0-0.5 [facility] Leukocytes [#/volume] correc janis for nucleated erythrocytes in Blood by Automated counon 02-17-2024 WBC corrected for nucl RBC Auto (Bld) [#/Vol] 8.9 10 3/uL 4.0-11.0 [facility] Lymphocytes Auto (Bld) [#/Vo l]on 02-17-2024 Lymphocytes (Bld) [#/Vol] 1.8 10 3/uL 1.2-3.8 [facility] Lymphocytes/100 WBC Auto (Bl d)on 02-17-2024 Lymphocytes/100 WBC (Bld) 20.1 % Low 20.5-60.0 [facility] MCH Auto (RBC) [Entitic mass ]on 02-17-2024 MCH (RBC) [Entitic mass] 19.1 pg Low 26.7-34.0 [facility] MCHC Auto (RBC) [Mass/Vol]on 02-17-2024 MCHC (RBC) [Mass/Vol] 28.2 g/dL Low 29.9-35.2 [facility] MCV Auto (RBC) [Entitic vol] on 02-17-2024 MCV (RBC) [Entitic vol] 67.8 fL Low 81.0-99.0 [facility] Monocytes Auto (Bld) [#/Vol] on 02-17-2024 Monocytes (Bld) [#/Vol] 1.0 10 3/uL High 0.3-0.8 [facility] Monocytes/100 WBC Auto (Bld) on 02-17-2024 Monocytes/100 WBC (Bld) 10.9 % 1.7-12.0 [facility] Neutrophils Auto (Bld) [#/Vo l]on 02-17-2024 Neutrophils (Bld) [#/Vol] 5.9 10 3/uL 1.4-6.5 [facility] Neutrophils/100 WBC Auto (Bl d)on 02-17-2024 Neutrophils/100 WBC (Bld) 66.2 % 43.0-75.0 [facility] No Panel Informationon 02-16 Eosinophils # (Auto) 0.1 10 3/uL 0.0-0.7 [facility] Immature Granulocyte # (Auto) 0.02 10 3/uL 0.00-0.03 [facility] Troponin I High Sensitivity 24.6 pg/mL 4.0-51.3 [facility] Comment on above: CUT-OFF POINTS HAVE BEEN [...] volume (Bld) [Entitic vol] 10.5 fL 9.5-13.5 [facility] Platelets Auto (Bld) [#/Vol] on 02-17-2024 Platelets (Bld) [#/Vol] 289 10 3/uL 150-450 [facility] Prothrombin time (PT)on 01-29 PT Coag (PPP) [Time] 25.8 s High 9.0-11.6 [facility] RBC Auto (Bld) [#/Vol]on RBC (Bld) [#/Vol] 5.03 10 6/uL 4.20-5.40 [facility] Serum or plasma albumin/glob ulin mass ratioon 02-17-2024 Albumin/Globulin [Mass ratio] 0.8 {ratio} [facility] Serum or plasma anion gap de terminationon 02-17-2024 Anion gap [Moles/Vol] 12.8 mmol/L [facility] Activated partial thrombopla stin time (aPTT) in platelet poor plasma by coagulation aOrdered By: Tanner Mae on 01-24-2024 aPTT Coag (PPP) [Time] 19.2 s Low 25.1-36.5 [facility] Comment on above: A hematocrit value g reater than 55% may lead to inaccurate results in coagulation testing. Patients having hematocrit values >55% require a special collection tube for coagulation studies. Please contact the laboratory at [phone] for redraw instructions. Alanine aminotransferase [En zymatic activity/volume] in Serum or PlasmaOrdered By: Tanner Mae on 01-24-2024 ALT [Catalytic activity/Vol] 14 U/L Normal 7-52 [facility] Comment on above: Performed By: #### C K, BNP, HS TROP, PTT, PT #### [address] Albumin [Mass/volume] in Ser um or Plasma by Bromocresol green (BCG) dye binding methoOrdered By: Tanner Mae on 01-24-2024 Albumin BCG dye [Mass/Vol] 3.6 g/dL 3.5-5.7 [facility] Alkaline phosphatase [Enzyma tic activity/volume] in Serum or PlasmaOrdered By: Tanner Mae on 01-24-2024 ALP [Catalytic activity/Vol] 200 U/L High 34-104 [facility] Comment on above: Performed By: #### C K, BNP, HS TROP, PTT, PT #### [facility] [address] [place] [address] Anisocytosis [Presence] in B lood by Light microscopyOrdered By: Tanner Mae on 01-24-2024 Anisocytosis Ql (Bld) Slight Normal [facility] Comment on above: Performed By: #### C K, BNP, HS TROP, PTT, PT #### [facility] [address] [place] [address] Aspartate aminotransferase [ Enzymatic activity/volume] in Serum or PlasmaOrdered By: Tanner Mae on 01-24-2024 AST [Catalytic activity/Vol] 35 U/L Normal 13-39 [facility] Comment on above: Performed By: #### C K, BNP, HS TROP, PTT, PT #### [place] [id number] [place] BNP ser/plasOrdered By: Brett Mae on 01-24-2024 Natriuretic peptide B (Bld) [Mass/Vol] 265.0 pg/mL High 5-100 [facility] Comment on above: Result Comment: PERF ORMED BY: [place] [address] PATHOLOGIST [employer] LILIANA CLAY M.D. Performed By: #### C K, BNP, HS TROP, PTT, PT #### [address] Basophils Auto (Bld) [#/Vol] Ordered By: Tanner Mae on 01-24-2024 Basophils (Bld) [#/Vol] N/A [facility] Basophils/100 WBC Auto (Bld) Ordered By: Tanner Mae on 01-24-2024 Basophils/100 WBC (Bld) N/A [facility] Basophils/100 leukocytes in Blood by Manual countOrdered By: Tanner Mae on 01-24-2024 Basophils/100 WBC (Bld) 1 % Normal 0-2 [facility] Comment on above: Performed By: #### C K, BNP, HS TROP, PTT, PT #### [facility] [address] [place] [address] Bilirubin.total [Mass/volume ] in Serum or PlasmaOrdered By: Tanner Mae on 01-24-2024 Bilirubin [Mass/Vol] 0.4 mg/dL Normal 0.3-1.0 [facility] Comment on above: Performed By: #### C K, BNP, HS TROP, PTT, PT #### [facility] [address] [place] [address] [place] cells [Presence] in Blo od by Light microscopyOrdered By: Tanner Mae on 01-24-2024 Jonah cells LM Ql (Bld) Slight Fi [facility] Calcium [Mass/volume] in Ser um or PlasmaOrdered By: Tanner Mae on 01-24-2024 Calcium [Mass/Vol] 8.7 mg/dL Normal 8.6-10.3 [facility] Comment on above: Performed By: #### C K, BNP, HS TROP, PTT, PT #### [address] Carbon dioxide, total [Moles /volume] in Serum or PlasmaOrdered By: Tanner Mae on 01-24-2024 CO2 [Moles/Vol] 23.7 mmol/L Normal 21.0-31.0 [facility] Comment on above: Performed By: #### C K, BNP, HS TROP, PTT, PT #### [address] Chloride [Moles/volume] in S daisy or PlasmaOrdered By: Tanner Mae on 01-24-2024 Chloride [Moles/Vol] 109 mmol/L High 98-107 [facility] Comment on above: Performed By: #### C K, BNP, HS TROP, PTT, PT #### [address] Comprehensive Metabolic Pane siddharth 01-24-2024 Albumin [Mass/Vol] 3.6 g/dL Normal 3.5-5.7 [facility] Comment on above: Performed By: #### C K, BNP, HS TROP, PTT, PT #### [place] [address] [place] Creatinine Clr Calc Pharmacy 54.24 Normal [facility] Comment on above: Result Comment: PERF ORMED BY: [place] [address] PATHOLOGIST [employer] OFFICER LILIANA CLAY M.D. Performed By: #### C K, BNP, HS TROP, PTT, PT #### [place] [address] [place] GFR/1.73 sq M.predicted MDRD (S/P/Bld) [Vol rate/Area] mL/min/{1.73_m2} Normal [facility] Comment on above: Performed By: #### C K, BNP, HS TROP, PTT, PT #### [place] [address] [place] Creatine Kinaseon 01-24-2024 Creatine Kinase Normal 30-223 [facility] Comment on above: Result Comment: Unac ceptable specimen due to HEMOLYSIS. Redraw reordered. Performed By: #### C K, BNP, HS TROP, PTT, PT #### [address] Creatine kinase [Enzymatic a ctivity/volume] in Serum or PlasmaOrdered By: Tanner Mae on 01-24-2024 CK [Catalytic activity/Vol] 45 U/L Normal 30 [facility] Comment on above: Order Comment: REDRA W Result Comment: PERF ORMED BY: [place] [address] PATHOLOGIST [employer] OFFICER LILIANA CLAY M.D. Performed By: #### C K, BNP, HS TROP, PTT, PT #### [address] Creatinine [Mass/volume] in Serum or PlasmaOrdered By: Tanner Mae on 01-24-2024 Creatinine [Mass/Vol] 1.00 mg/dL Normal 0.60-1.20 [facility] Comment on above: Performed By: #### C K, BNP, HS TROP, PTT, PT #### [address] Diff and CBCon 01-24-2024 Crenated RBC Slight Normal [facility] Comment on above: Performed By: #### C K, BNP, HS TROP, PTT, PT #### [address] Hypochromasia Moderate Normal [facility] Comment on above: Performed By: #### C K, BNP, HS TROP, PTT, PT #### [address] Macrocytosis Slight Normal [facility] Comment on above: Performed By: #### C K, BNP, HS TROP, PTT, PT #### [address] Mean Corpuscular HGB Conc 30.1 g/dL Low 32.0-35.0 [facility] Comment on above: Performed By: #### C K, BNP, HS TROP, PTT, PT #### [address] Microcytosis Slight Normal [facility] Comment on above: Performed By: #### C K, BNP, HS TROP, PTT, PT #### [address] Monocytes/100 WBC (Bld) 18.17 % Normal 0.00-20.00 [facility] Comment on above: Performed By: #### C K, BNP, HS TROP, PTT, PT #### [address] Ovalocytes Slight Normal [facility] Comment on above: Performed By: #### C K, BNP, HS TROP, PTT, PT #### [address] Platelet Estimate Normal Normal Normal [facility] Comment on above: Performed By: #### C K, BNP, HS TROP, PTT, PT #### [address] Platelet Morphology Normal Normal Normal [facility] Comment on above: Result Comment: PERF ORMED BY: [place] [address] PATHOLOGIST [employer] OFFICER LILIANA CLAY M.D. Performed By: #### C K, BNP, HS TROP, PTT, PT #### [address] Poikilocytosis Moderate Normal [facility] Comment on above: Performed By: #### C K, BNP, HS TROP, PTT, PT #### [address] Polychromasia Slight Normal [facility] Comment on above: Performed By: #### C K, BNP, HS TROP, PTT, PT #### [address] Stomatocytes Slight Normal [facility] Comment on above: Performed By: #### C K, BNP, HS TROP, PTT, PT #### [facility] [address] Target Cells Slight Normal [facility] Comment on above: Performed By: #### C K, BNP, HS TROP, PTT, PT #### [facility] [address] Tear Drop Cells Slight Normal [facility] Comment on above: Performed By: #### C K, BNP, HS TROP, PTT, PT #### [facility] [address] ECG 12 lead ECGon 01-24-2024 ECG 12 lead ECG [facility] Main [place] [address] [place] [address] Electrocardiograph Report Signed Patient: Essence Vincent MR#: [id number] : 1970 Acct:[id number] Age/Sex: 53 / F ADM Date: 01/24/24 Loc: ER Room: Type: [facility] ER Attending Dr: Ordering Provider: Tanner Mae [...] Atrial flutter Confirmed by TANNER MAE MD ([id number]) on 01/25/2024 5:26:09 AM Referred By: Electronically Signed By:TANNER MAE MD Transcribed By: MUS Signed By Tanner Mae Jr, MD 0526 Normal [facility] Eosinophils Auto (Bld) [#/Vo l]Ordered By: Tanner Mae on 01-24-2024 Eosinophils (Bld) [#/Vol] N/A [facility] Eosinophils/100 WBC Auto (Bl d)Ordered By: Tanner Mae on 01-24-2024 Eosinophils/100 WBC (Bld) N/A [facility] Eosinophils/100 leukocytes i n Blood by Manual countOrdered By: Tanner Mae on 01-24-2024 Eosinophils/100 WBC (Bld) 1 % Normal 1-3 [facility] Comment on above: Performed By: #### C K, BNP, HS TROP, PTT, PT #### [address] Erythrocyte distribution wid th [Ratio] by Automated countOrdered By: Tanner Mae on 01-24-2024 Erythrocyte distribution width (RBC) [Ratio] 22.3 % High 11.9-15.3 [facility] Comment on above: Performed By: #### C K, BNP, HS TROP, PTT, PT #### [address] Erythrocytes [#/volume] in B lood by Automated countOrdered By: Tanner Mae on 01-24-2024 RBC (Bld) [#/Vol] 4.94 10*6/uL Normal 3.60-5.00 [facility] Comment on above: Performed By: #### C K, BNP, HS TROP, PTT, PT #### [address] Glucose [Mass/volume] in Ser um or PlasmaOrdered By: Tanner Mae on 01-24-2024 Glucose [Mass/Vol] 86 mg/dL Normal 70-100 [facility] Comment on above: ADA recommended refe rence rangeRandom Glucose Reference Range is dependent on time and content of last meal. Glucose of more than 200 mg/dL in a nonstressed, ambulatory subject supports the diagnosis of Diabetes Mellitus. Result Comment: [place] om Glucose Reference Range is dependent on time and content of last meal. Glucose of more than 200 mg/dL in a nonstressed, ambulatory subject supports the diagnosis of Diabetes Mellitus. ADA recommended reference range Performed By: #### C K, BNP, HS TROP, PTT, PT #### [address] Hematocrit [Volume Fraction] of Blood by Automated countOrdered By: Tanner Mae on 01-24-2024 Hematocrit (Bld) [Volume fraction] 32.3 % Low 34.0-46.4 [facility] Comment on above: Performed By: #### C K, BNP, HS TROP, PTT, PT #### [facility] [address] Hemoglobin [Mass/volume] in BloodOrdered By: Tanner Mae on 01-24-2024 Hemoglobin (Bld) [Mass/Vol] 9.7 g/dL Low 11.8-15.4 [facility] Comment on above: Performed By: #### C K, BNP, HS TROP, PTT, PT #### [facility] [address] [place] [address] Hypochromia LM Ql (Bld)Order ed By: Tanner Mae on 01-24-2024 Hypochromia Ql (Bld) Moderate [facility] INR in Platelet poor plasma by Coagulation assayOrdered By: Tanner Mae on 01-24-2024 INR Coag (PPP) [Relative time] 1.0 {INR} Normal [facility] Comment on above: INR Therapeutic [...] K, BNP, HS TROP, PTT, PT #### [address] Leukocytes [#/volume] correc janis for nucleated erythrocytes in Blood by Automated counOrdered By: Tanner Mae on 01-24-2024 WBC corrected for nucl RBC Auto (Bld) [#/Vol] 10.2 10*3/uL 3.8-11.6 [facility] Leukocytes [#/volume] in Blo od by Automated countOrdered By: Tanner Mae on 01-24-2024 WBC (Bld) [#/Vol] 10.2 10*3/uL Normal 3.8-11.6 [facility] Comment on above: Performed By: #### C K, BNP, HS TROP, PTT, PT #### [address] Lymphocytes Auto (Bld) [#/Vo l]Ordered By: Tanner Mae on 01-24-2024 Lymphocytes (Bld) [#/Vol] N/A [facility] Lymphocytes/100 WBC Auto (Bl d)Ordered By: Tanner Mae on 01-24-2024 Lymphocytes/100 WBC (Bld) N/A [facility] Lymphocytes/100 leukocytes i n Blood by Manual countOrdered By: Tanner Mae on 01-24-2024 Lymphocytes/100 WBC (Bld) 22 % Normal 18-42 [facility] Comment on above: Performed By: #### C K, BNP, HS TROP, PTT, PT #### [address] MCH [Entitic mass] by Automa janis countOrdered By: Tanner Mae on 01-24-2024 MCH (RBC) [Entitic mass] 19.7 pg Low 24.7-34.3 [facility] Comment on above: Performed By: #### C K, BNP, HS TROP, PTT, PT #### [address] MCHC Auto (RBC) [Mass/Vol]Or dered By: Tanner Mae on 01-24-2024 MCHC (RBC) [Mass/Vol] 30.1 g/dL Low 32.0-35.0 [facility] MCV [Entitic volume] by Auto mated countOrdered By: Tanner Mae on 01-24-2024 MCV (RBC) [Entitic vol] 65.4 fL Low 80-100 [facility] Comment on above: Performed By: #### C K, BNP, HS TROP, PTT, PT #### [facility] [address] [place] [address] [place] Macrocytes LM Ql (Bld)Ordere d By: Tanner Mae on 01-24-2024 Macrocytes Ql (Bld) Slight [facility] Manual blood segmented neutr ophils/100 leukocytesOrdered By: Tanner Mae on 01-24-2024 Segmented neutrophils/100 WBC (Bld) 69 % Normal 50-70 [facility] Comment on above: Performed By: #### C K, BNP, HS TROP, PTT, PT #### [facility] [address] [place] [id number] [place] Microcytes LM Ql (Bld)Ordere d By: Tanner Mae on 01-24-2024 Microcytes Ql (Bld) Slight [facility] Monocyte distribution width [Entitic volume] in Blood by AutomatedOrdered By: Tanner Mae on 01-24-2024 Monocyte distribution width Auto (Bld) [Entitic vol] 18.17 % 0.00-20.00 [facility] Monocytes Auto (Bld) [#/Vol] Ordered By: Tanner Mae on 01-24-2024 Monocytes (Bld) [#/Vol] N/A [facility] Monocytes/100 WBC Auto (Bld) Ordered By: Tanner Mae on 01-24-2024 Monocytes/100 WBC (Bld) N/A [facility] Monocytes/100 leukocytes in Blood by Manual countOrdered By: Tanner Mae on 01-24-2024 Monocytes/100 WBC (Bld) 8 % Normal 2-11 [facility] Comment on above: Performed By: #### C K, BNP, HS TROP, PTT, PT #### [facility] [address] [place] [address] [place] Neutrophils Auto (Bld) [#/Vo l]Ordered By: Tanner Mae on 01-24-2024 Neutrophils (Bld) [#/Vol] N/A [facility] Neutrophils/100 WBC Auto (Bl d)Ordered By: Tanner Mae on 01-24-2024 Neutrophils/100 WBC (Bld) N/A [facility] No Panel InformationOrdered By: Tanner Mae on 01-24-2024 Estimated GFR (CKD-EPI) > 60.0 mL/Min [facility] Creatinine Clearance (Chem 54.24 [facility] Nucleated erythrocytes [Pres ence] in Blood by Automated countOrdered By: Tanner Mae on 01-24-2024 Nucleated RBC Auto Ql (Bld) N/A [facility] Ovalocyte detectionOrdered B y: Tanner Mae on 01-24-2024 Ovalocytes LM Ql (Bld) Slight [facility] Partial Thromboplastin Timeo n 01-24-2024 aPTT Coag (Bld) [Time] 19.2 s Low 25.1-36.5 [facility] Comment on above: Result Comment: A he matocrit value greater than 55% may lead to inaccurate results in coagulation testing. Patients having hematocrit values >55% require a special collection tube for coagulation studies. Please contact the laboratory at [phone] for redraw instructions. PERFORMED BY: [place] [id number] PATHOLOGIST [employer] OFFICER LILIANA CLAY M.D. Performed By: #### C K, BNP, HS TROP, PTT, PT #### [facility] [address] Platelet adequacy [Presence] in Blood by Light microscopyOrdered By: Tanner Mae on 01-24-2024 Platelets LM Ql (Bld) Normal Normal [facility] Platelet mean volume [Entiti c volume] in Blood by Automated countOrdered By: Tanner Mae on 01-24-2024 Platelet mean volume (Bld) [Entitic vol] 9.1 fL Normal 6.3-10.7 [facility] Comment on above: Performed By: #### C K, BNP, HS TROP, PTT, PT #### [facility] [address] Platelet morphology finding [Identifier] in BloodOrdered By: Tanner Mae on 01-24-2024 Platelet morphology finding Nom (Bld) Normal Normal [facility] Platelets [#/volume] in Bloo d by Automated countOrdered By: Tanner Mae on 01-24-2024 Platelets (Bld) [#/Vol] 214 10*3/uL Normal 150-450 [facility] Comment on above: Performed By: #### C K, BNP, HS TROP, PTT, PT #### [address] Poikilocytosis [Presence] in Blood by Light microscopyOrdered By: Tanner Mae on 01-24-2024 Poikilocytosis LM Ql (Bld) Moderate [facility] Polychromasia [Presence] in Blood by Light microscopyOrdered By: Tanner Mae on 01-24-2024 Polychromasia LM Ql (Bld) Slight [facility] Potassium [Moles/volume] in Serum or PlasmaOrdered By: Tanner Mae on 01-24-2024 Potassium [Moles/Vol] 3.5 mmol/L Normal 3.5-5.1 [facility] Comment on above: Performed By: #### C K, BNP, HS TROP, PTT, PT #### [address] Protein [Mass/volume] in Ser um or PlasmaOrdered By: Tanner Mae on 01-24-2024 Protein [Mass/Vol] 6.6 g/dL Normal 6.4-8.9 [facility] Comment on above: Performed By: #### C K, BNP, HS TROP, PTT, PT #### [address] Prothrombin time (PT)Ordered By: Tanner Mae on 01-24-2024 PT Coag (PPP) [Time] 11.8 s Normal 9.0-12.9 [facility] Comment on above: A hematocrit value g reater than 55% may lead to inaccurate results in coagulation testing. Patients having hematocrit values >55% require a special collection tube for coagulation studies. Please contact the laboratory at [phone] for redraw instructions. Result Comment: A he matocrit value greater than 55% may lead to inaccurate results in coagulation testing. Patients having hematocrit values >55% require a special collection tube for coagulation studies. Please contact the laboratory at [phone] for redraw instructions. Performed By: #### C K, BNP, HS TROP, PTT, PT #### [place] [address] [place] RBC morphologyOrdered By: Isabella Mae on 01-24-2024 RBC morphology finding Nom (Bld) N/A [facility] Red blood cell stomatocyte d etectionOrdered By: Tanner Mae on 01-24-2024 Stomatocytes LM Ql (Bld) Slight [facility] Serum globulin measurement b y calculation (mass/volume)Ordered By: Tanner Mae on 01-24-2024 Globulin (S) [Mass/Vol] 3.0 g/dL Normal [facility] Comment on above: Performed By: #### C K, BNP, HS TROP, PTT, PT #### [facility] [address] [place] [address] Serum or plasma albumin/glob ulin mass ratioOrdered By: Tanner Mae on 01-24-2024 Albumin/Globulin [Mass ratio] 1.2 {ratio} [facility] Comment on above: Performed By: #### C K, BNP, HS TROP, PTT, PT #### [facility] [address] [place] [address] Serum or plasma anion gap de terminationOrdered By: Tanner Mae on 01-24-2024 Anion gap [Moles/Vol] 12.8 mmol/L Normal 6.0-15.0 [facility] Comment on above: Performed By: #### C K, BNP, HS TROP, PTT, PT #### [facility] [address] [place] [address] Sodium [Moles/volume] in Ser um or PlasmaOrdered By: Tanner Mae on 01-24-2024 Sodium [Moles/Vol] 142 mmol/L Normal 136-145 [facility] Comment on above: Performed By: #### C K, BNP, HS TROP, PTT, PT #### [facility] [address] [place] [address] Target cellsOrdered By: Brett Mae on 01-24-2024 Target cells LM Ql (Bld) Slight [facility] Teardrop cell detectionOrder ed By: Tanner Mae on 01-24-2024 Dacrocytes LM Ql (Bld) Slight [facility] Troponin I High Sensitivityo n 01-24-2024 Troponin I High Sensitivity 13.2 pg/mL Normal 0.0-15.0 [facility] Comment on above: Result Comment: PERF ORMED BY: [place] [address] PATHOLOGIST [employer] OFFICER LILIANA CLAY M.D. Performed By: #### C K, BNP, HS TROP, PTT, PT #### [facility] [address] [place] [address] Troponin I.cardiac [Mass/vol ume] in Serum or Plasma by Detection limit <= 0.01 ng/Ordered By: Tanner Mae on 01-24-2024 Troponin I.cardiac DL <= 0.01 ng/mL [Mass/Vol] 13.2 pg/mL 0.0-15.0 [facility] Urea nitrogen [Mass/volume] in Serum or PlasmaOrdered By: Tanner Mae on 01-24-2024 Urea nitrogen [Mass/Vol] 23 mg/dL Normal 7-25 [facility] Comment on above: Performed By: #### C K, BNP, HS TROP, PTT, PT #### [facility] [address] [place] [address] XR chest 1V portableon 01-23 XR chest 1V portable [facility] Main [place] [address] [place] [address] XRay Report Signed Patient: Essence Vincent MR#: [id number] : 1970 Acct:[id number] Age/Sex: 53 / F ADM Date: 01/24/24 Loc: ER Room: Type: [facility] ER Attending Dr: Copies to: Tanner Mae [...] Franklin Couch M.D.01/24/2024 11:31 AM Dictation Location: [facility]13 Transcribed By: LINCOLN 01/24/24 1131 Dictated By: Franklin Couch II, MD 01/24/24 1130 Signed By: 01/24/24 1131 Normal [facility] BUN, POCon 01-04-2024 Urea nitrogen [Mass/Vol] 22 mg/dL Normal 8-26 [facility] Creatinine w/GFR, POCon Creatinine [Mass/Vol] 0.7 mg/dL Normal 0.51-1.19 [facility] GFR/1.73 sq M.predicted among non-blacks MDRD (S/P/Bld) [Vol rate/Area] mL/min/{1.73_m2} Normal [facility] Comment on above: Result Comment: These results [...] 01-04-2024 Glucose [Mass/Vol] 84 mg/dL Normal 74-100 [facility] Hgb/Hct, POCon 01-04-2024 Hematocrit (Bld) [Volume fraction] 40 % Normal 36-46 [facility] Hemoglobin (Bld) [Mass/Vol] 13.8 g/dL Normal 12.0-16.0 [facility] PT (Whole Blood)on 4 Intl. Normal. Ratio 1.1 Normal [facility] Comment on above: Result Comment: Therapeutic Range: Moderate Anticoagulant Intensity: INR = 2.0-3.0 High Anticoagulant Intensity: INR = 2.5-3.5 PT Coag (PPP) [Time] 13.5 s Normal 10.4-14.2 [place] Potassium (POC)on 01-04-2024 Potassium [Moles/Vol] 3.3 mmol/L Low 3.5-4.5 [facility] Sodium (POC)on 01-04-2024 Sodium [Moles/Vol] 142 mmol/L Normal 138-146 [facility] Protime-INRon 10-12-2023 INR Coag (Bld) [Relative time] 2 {INR} [facility] PT Coag (PPP) [Time] 24.1 s seconds [facility] Protime-INRon 10-11-2023 INR Coag (Bld) [Relative time] 1.8 {INR} [facility] PT Coag (PPP) [Time] 21.1 s seconds [facility] Basic Metab w/rfx MGon 10-07 GFR/1.73 sq M.predicted among non-blacks MDRD (S/P/Bld) [Vol rate/Area] mL/min/{1.73_m2} Normal >60 [facility] Comment on above: Result Comment: These results [...] By: #### C DP, BMPX, PT #### [facility] [address] [place] [address] Manager Copy: Mike Bill DO Potassium [Moles/Vol] 4.4 mmol/L Normal 3.7-5.3 [facility] Comment on above: Result Comment: SPEC IMEN SLIGHTLY HEMOLYZED, RESULTS MAY BE ADVERSELY AFFECTED. Performed By: #### C DP, BMPX, PT #### [facility] [address] [place] [address] Manager Copy: Mike Bill DO Anion gap [Moles/Vol] 12 mmol/L Normal 9-17 [facility] Comment on above: Performed By: #### C DP, BMPX, PT #### [facility] [place] [address] Manager Copy: Mike Bill DO Calcium [Mass/Vol] 9.2 mg/dL Normal 8.6-10.4 [facility] Comment on above: Performed By: #### C BIANCA, BMPX, PT #### [facility] [address] [place] [id number] Manager Copy: Mike Bill DO Chloride [Moles/Vol] 104 mmol/L Normal 98-107 [facility] Comment on above: Performed By: #### C BIANCA, BMPX, PT #### [facility] [place] [address] Manager Copy: Mike Bill DO CO2 [Moles/Vol] 24 mmol/L Normal 20-31 [facility] Comment on above: Performed By: #### C BIANCA, BMPX, PT #### [facility] [place] [address] Manager Copy: Mike Bill DO Creatinine [Mass/Vol] 1.0 mg/dL High 0.5-0.9 [facility] Comment on above: Performed By: #### C DP, BMPX, PT #### [facility] [place] [address] Manager Copy: Mike Bill DO Glucose [Mass/Vol] 96 mg/dL Normal 70-99 [facility] Comment on above: Performed By: #### C DP, BMPX, PT #### [facility] [address] [facility] [place] [address] Manager Copy: Mike Bill DO Sodium [Moles/Vol] 140 mmol/L Normal 135-144 [facility] Comment on above: Performed By: #### C DP, BMPX, PT #### [facility] [address] [facility] [place] [address] Manager Copy: Mike Bill DO Urea nitrogen [Mass/Vol] 12 mg/dL Normal 6-20 [facility] Comment on above: Performed By: #### C BIANCA, BMPX, PT #### [facility] [address] [facility] [place] [address] Manager Copy: Mike Bill DO Basic Metabolic Panel w/ Ref sam to MGon 10-07-2023 Anion gap [Moles/Vol] 12 mmol/L 9 - 17 mmol/L [facility] [employer] Calcium [Mass/Vol] 9.2 mg/dL 8.6 - 10. 4 mg/dL [facility] [employer] Chloride [Moles/Vol] 104 mmol/L 98 - 10 7 mmol/L [facility] CO2 [Moles/Vol] 24 mmol/L 20 - 31 mmol/L [facility] [employer] Creatinine [Mass/Vol] 1.0 mg/dL High 0.5 - 0.9 mg/dL [facility] [employer] GFR/1.73 sq M.predicted MDRD (S/P/Bld) [Vol rate/Area] - PINF [facility] Comment on above: These results are [...] [Mass/Vol] 96 mg/dL 70 - 99 mg/dL [facility] Interpretation and review of laboratory results Abnormal [facility] Potassium [Moles/Vol] 4.4 mmol/L 3.7 - 5.3 mmol/L [facility] Comment on above: SPECIMEN SLIGHTLY HE MOLYZED, RESULTS MAY BE ADVERSELY AFFECTED. Sodium [Moles/Vol] 140 mmol/L 135 - 144 mmol/L [facility] Urea nitrogen [Mass/Vol] 12 mg/dL 6 - 20 mg/dL [facility] CBC with Diffon 10-07-2023 Abs. Basophil 0.16 k/uL Normal 0.0-0.2 [facility] Comment on above: Performed By: #### C BIANCA BMPX, PT #### [facility] [place] [address] Manager Copy: Mike Bill DO Abs.Neutrophil (Seg) 5.03 k/uL Normal 1.3-9.1 [facility] Comment on above: Performed By: #### C BIANCA BMPX, PT #### [facility] [address] [place] [address] Manager Copy: Mike Bill DO Basophils/100 WBC (Bld) 2 % Normal 0-2 [facility] Comment on above: Performed By: #### C BIANCA BMPX, PT #### [facility] [address] [place] [id number] Manager Copy: Mike Bill DO Eosinophils (Bld) [#/Vol] 0.08 10*3/uL Normal 0.0-0.4 [facility] [place] Comment on above: Performed By: #### C BIANCA BMPX, PT #### [facility] [place] [address] Manager Copy: Mike Bill DO Eosinophils/100 WBC (Bld) 1 % Normal 0-4 [facility] [place] Comment on above: Performed By: #### C DP, BMPX, PT #### [facility] [address] [place] [address] Manager Copy: Mike Bill DO Lymphocytes (Bld) [#/Vol] 1.86 10*3/uL Normal 1.0-4.8 [facility] [place] Comment on above: Performed By: #### C DP, BMPX, PT #### [facility] [address] [place] [address] Manager Copy: Mike Bill DO Lymphocytes/100 WBC (Bld) 23 % Low 24-44 [facility] [place] Comment on above: Performed By: #### C DP, BMPX, PT #### [facility] [address] [facility] [place] [address] Manager Copy: Mike Bill DO Monocytes (Bld) [#/Vol] 0.97 10*3/uL Normal 0.1-1.3 [facility] [place] Comment on above: Performed By: #### C BIANCA, BMPX, PT #### [facility] [place] [facility] [place] [address] Manager Copy: Mike Bill DO Monocytes/100 WBC (Bld) 12 % High 1-7 [facility] [place] Comment on above: Performed By: #### C BIANCA, BMPX, PT #### [facility] [address] [facility] [place] [address] Manager Copy: Mike Bill DO Morphology Jeffery (Bld) [Interp] MICROCYTOSIS PRESENT Normal [facility] [place] Comment on above: Result Comment: HYPO CHROMIA PRESENT ANISOCYTOSIS PRESENT 1+ ACANTHOCYTES FEW ELLIPTOCYTES Performed By: #### C DP, BMPX, PT #### [facility] [place] [facility] [place] [address] Manager Copy: Mike Bill DO Neutrophil (Seg) 62 % Normal 36-66 [facility] Comment on above: Performed By: #### C DP, BMPX, PT #### [facility] [address] [place] [address] Manager Copy: Mike Bill DO Erythrocyte distribution width (RBC) [Ratio] 23.8 % High 11.5-14.9 [facility] [place] Comment on above: Performed By: #### C DP, BMPX, PT #### [facility] [place] [address] Manager Copy: Mike Bill DO Hematocrit (Bld) [Volume fraction] 33.8 % Low 36-46 [facility] [place] Comment on above: Performed By: #### C DP, BMPX, PT #### [facility] [address] [place] [address] Manager Copy: Mike Bill DO Hemoglobin (Bld) [Mass/Vol] 9.6 g/dL Low 12.0-16.0 [facility] [place] Comment on above: Performed By: #### C DP, BMPX, PT #### [facility] [address] [place] [address] Manager Copy: Mike Bill DO MCH (RBC) [Entitic mass] 18.1 pg Low 26-34 [facility] [place] Comment on above: Performed By: #### C DP, BMPX, PT #### [facility] [address] [place] [address] Manager Copy: Mike Bill DO MCHC (RBC) [Mass/Vol] 28.5 g/dL Low 31-37 [facility] Comment on above: Performed By: #### C DP, BMPX, PT #### [facility] [address] [place] [address] Manager Copy: Mike Bill DO MCV (RBC) [Entitic vol] 63.5 fL Low 80-100 [facility] [place] Comment on above: Performed By: #### C BIANCA BMPX, PT #### [facility] [address] [place] [address] Manager Copy: Mike Bill DO Platelet mean volume (Bld) [Entitic vol] 8.5 fL Normal 6.0-12.0 [facility] [place] Comment on above: Performed By: #### C BIANCA, BMPX, PT #### [facility] [place] [address] Manager Copy: Mike Bill DO Platelets (Bld) [#/Vol] 214 10*3/uL Normal 150-450 [facility] [place] Comment on above: Performed By: #### C BIANCA BMPX, PT #### [facility] [address] [place] [address] Manager Copy: Mike Bill DO RBC (Bld) [#/Vol] 5.32 10*6/uL High 4.0-5.2 [facility] [place] Comment on above: Performed By: #### C BIANCA BMPX, PT #### [facility] [address] [place] [address] Manager Copy: Mike Bill DO WBC (Bld) [#/Vol] 8.1 10*3/uL Normal 3.5-11.0 [facility] Comment on above: Performed By: #### C BIANCA BMPX, PT #### [facility] [address] [place] [address] Manager Copy: Mike Bill DO CBC with auto differentialon 10-07-2023 Basophils (Bld) [#/Vol] 0.16 10*3/uL [facility] Basophils/100 WBC (Bld) 2 % 0 - 2 % [facility] Eosinophils (Bld) [#/Vol] 0.08 10*3/uL [facility] Eosinophils/100 WBC (Bld) 1 % 0 - 4 % [facility] Erythrocyte distribution width (RBC) [Ratio] 23.8 % High 11.5 - 14.9 % [facility] Hematocrit (Bld) [Volume fraction] 33.8 % Low 36 - 46 % [facility] Hemoglobin (Bld) [Mass/Vol] 9.6 g/dL Low 12.0 - 16.0 g/dL [facility] Interpretation and review of laboratory results Abnormal [facility] Lymphocytes/100 WBC (Bld) 23 % Low 24 - 44 % [facility] Lymphocytes/100 WBC (Bld) 1.86 % [facility] MCH (RBC) [Entitic mass] 18.1 pg Low 26 - 34 pg [facility] MCHC (RBC) [Mass/Vol] 28.5 g/dL Low 31 - 3 7 g/dL [facility] MCV (RBC) [Entitic vol] 63.5 fL Low 80 - 100 fL [facility] Monocytes/100 WBC (Bld) 12 % High 1 - 7 % [facility] Monocytes/100 WBC (Bld) 0.97 % [facility] Morphology Jeffery (Bld) [Interp] MICROCYTOSIS PRESENT [facility] Morphology Jeffery (Bld) [Interp] HYPOCHROMIA PRESENT [facility] Morphology Jeffery (Bld) [Interp] ANISOCYTOSIS PRESENT [facility] Morphology Jeffery (Bld) [Interp] 1+ ACANTHOCYTES FEW ELLIPTOCYTES [facility] Neutrophils/100 WBC (Bld) 62 % 36 - 66 % [facility] Platelet mean volume (Bld) [Entitic vol] 8.5 fL 6.0 - 12.0 fL [facility] Platelets (Bld) [#/Vol] 214 10*3/uL [facility] RBC (Bld) [#/Vol] 5.32 10*6/uL High 4.0 - 5.2 m/uL [facility] Segmented neutrophils/100 WBC (Bld) 5.03 % [employer] WBC other (Bld) [#/Vol] 8.1 [employer] ALIREZA valuklik EKG 12 LeadOrdered By: Satish Whitman on 10-07-2023 Atrial Rate 80 BPM [employer] Work Phone: P [place] 108 degrees [employer] Work Phone: [phone] P-R Interval 268 ms [employer] Work Phone: [phone] Q-T Interval 478 ms [employer] Work Phone: [phone] QRS Duration 206 ms [employer] Work Phone: [phone] QTc Calculation (Bazett) 551 ms [employer] Work Phone: [phone] R [place] -72 degrees [employer] Work Phone: [phone] T [place] 98 degrees [employer] Work Phone: Ventricular Rate 80 BPM Downstream Hemp 4 [place] Work Phone: [employer] Work Phone: EKG 12 Leadon 10-07-2023 AV dual-paced rhythm with prolonged AV conduction Abnormal ECG When compared with ECG of 05-OCT-2023 19:31, (unconfirmed) No significant change was found [facility] Satish Whitman MD - 10/07/2023 AV dual-paced rhythm with prolonged AV conduction Abnormal ECG When compared with ECG of 05-OCT-2023 19:31, (unconfirmed) No significant change was found [employer] PTon 10-07-2023 INR Coag (PPP) [Relative time] 1.1 {INR} Normal [facility] [place] Comment on above: Result Comment: Therapeutic Range: Moderate Anticoagulant Intensity: INR = 2.0-3.0 High Anticoagulant Intensity: INR = 2.5-3.5 Performed By: #### C DP, BMPX, PT #### [facility] [address] [place] [address] Manager Copy: Mike Bill DO PT Coag (PPP) [Time] 14.9 s High 11.8-14.6 [facility] Comment on above: Performed By: #### C DP, BMPX, PT #### [facility] [address] [place] [address] Manager Copy: Mike Bill DO Protime-INRon 10-07-2023 INR Coag (PPP) [Relative time] 1.1 {INR} [facility] Comment on above: Therapeutic Range: Moderate Anticoagulant Intensity: INR = 2.0-3.0 High Anticoagulant Intensity: INR = 2.5-3.5 Interpretation and review of laboratory results Abnormal [facility] PT Coag (PPP) [Time] 14.9 s High [facility] Basic Metab w/rfx MGon 10-06 Potassium [Moles/Vol] 4.3 mmol/L Normal 3.7-5.3 [facility] Comment on above: Result Comment: SPEC IMEN MODERATELY HEMOLYZED, RESULTS MAY BE ADVERSELY AFFECTED Performed By: #### B MPX ####[facility] [id number] [place] [address] Lab Director: Mike Bill DO Anion gap [Moles/Vol] 14 mmol/L Normal 9-17 [facility] Comment on above: Performed By: #### B MPX ####[facility] [id number] [place] [address] Lab Director: Mike Bill DO Calcium [Mass/Vol] 9.0 mg/dL Normal 8.6-10.4 [facility] [place] Comment on above: Performed By: #### B MPX ####[facility] [id number] [place] [address] Lab Director: Mike Bill DO Chloride [Moles/Vol] 95 mmol/L Low 98-107 [facility] Comment on above: Performed By: #### B MPX ####[facility] [address] [place] [address] Lab Director: Mike Bill DO CO2 [Moles/Vol] 23 mmol/L Normal 20-31 [facility] [place] Comment on above: Performed By: #### B MPX ####[facility] [id number] [facility] [place] [address] Lab Director: Mike Bill DO Creatinine [Mass/Vol] 1.2 mg/dL High 0.5-0.9 [facility] Comment on above: Performed By: #### B MPX ####[facility] [id number] [facility] [place] [address] Lab Director: Mike Bill DO GFR/1.73 sq M.predicted among non-blacks MDRD (S/P/Bld) [Vol rate/Area] 54 mL/min/{1.73_m2} Low >60 [facility] [place] Comment on above: Result Comment: These results [...] tubular secretion. Performed By: #### B MPX ####[facility] [id number] [facility] [place] [address] Lab Director: Mike Bill DO Glucose [Mass/Vol] 97 mg/dL Normal 70-99 [facility] [place] Comment on above: Performed By: #### B MPX ####[facility] [id number] [facility] [place] [address] Lab Director: Mike Bill DO Sodium [Moles/Vol] 132 mmol/L Low 135-144 [facility] [place] Comment on above: Performed By: #### B MPX ####[facility] [id number] [facility] [place] [address] lab Director: Mike Bill DO Urea nitrogen [Mass/Vol] 16 mg/dL Normal 6-20 [facility] [place] Comment on above: Performed By: #### B MPX ####[facility] [id number] [facility] [place] [address] lab Director: Mike Bill DO Basic Metabolic Panel w/ Ref sam to MGon 10-06-2023 Anion gap [Moles/Vol] 14 mmol/L 9 - 17 mmol/L [facility] INCURABLESSilicon Biology [employer] Calcium [Mass/Vol] 9.0 mg/dL 8.6 - 10. 4 mg/dL [facility] [employer] Chloride [Moles/Vol] 95 mmol/L Low 98 - 10 7 mmol/L [facility] CO2 [Moles/Vol] 23 mmol/L 20 - 31 mmol/L [facility] PublishingSUM[facility] Creatinine [Mass/Vol] 1.2 mg/dL High 0.5 - 0.9 mg/dL [facility] INCURABLESSilicon BiologySUMMA HEALTH [facility] GFR/1.73 sq M.predicted MDRD (S/P/Bld) [Vol rate/Area] 54 mL/min/{1.73_m2} Low - PINF [facility] INCURABLESLife is Tech [facility] Comment on above: These results are [...] [Mass/Vol] 97 mg/dL 70 - 99 mg/dL [facility] INCURABLESFlashstock [facility] Interpretation and review of laboratory results Abnormal [facility] INCURABLESMosec, Mobile Secretary Potassium [Moles/Vol] 4.3 mmol/L 3.7 - 5.3 mmol/L [facility]URABLESSilicon BiologySUMMA [facility]ALTH [facility] Comment on above: SPECIMEN MODERATELY HEMOLYZED, RESULTS MAY BE ADVERSELY AFFECTED Sodium [Moles/Vol] 132 mmol/L Low 135 - 144 mmol/L [facility] Urea nitrogen [Mass/Vol] 16 mg/dL 6 - 20 mg/dL [facility] CBC with Diffon 10-06-2023 Abs. Basophil 0.13 k/uL Normal 0.0-0.2 [facility] [place] Comment on above: Performed By: #### C BIANCA, PT, REJEC #### [facility] [address] [place] [address] Manager Copy: Mike Bill DO Abs.Neutrophil (Seg) 10.51 k/uL High 1.3-9.1 [facility] Comment on above: Performed By: #### C BIANCA PT, REJEC #### [facility] [address] [place] [address] Manager Copy: Mike Bill DO Basophils/100 WBC (Bld) 1 % Normal 0-2 [facility] Comment on above: Performed By: #### C BIANCA PT, REJEC #### [facility] [address] [place] [address] Manager Copy: Mike Blil DO Eosinophils (Bld) [#/Vol] 0.00 10*3/uL Normal 0.0-0.4 [facility] [place] Comment on above: Performed By: #### C BIANCA, PT, REJEC #### [facility] [address] [place] [address] Manager Copy: Mike Bill DO Eosinophils/100 WBC (Bld) 0 % Normal 0-4 [facility] [place] Comment on above: Performed By: #### C DP, PT, REJEC #### [facility] [address] [place] [address] Manager Copy: Mike Bill DO Lymphocytes (Bld) [#/Vol] 1.73 10*3/uL Normal 1.0-4.8 [facility] [place] Comment on above: Performed By: #### C DP, PT, REJEC #### [facility] [address] [place] [address] Manager Copy: Mike Bill DO Lymphocytes/100 WBC (Bld) 13 % Low 24-44 [facility] [place] Comment on above: Performed By: #### C DP, PT, REJEC #### [facility] [address] [place] [address] Manager Copy: Mike Bill DO Monocytes (Bld) [#/Vol] 0.93 10*3/uL Normal 0.1-1.3 [facility] [place] Comment on above: Performed By: #### C DP, PT, REJEC #### [facility] [place] [address] Manager Copy: Mike Bill DO Monocytes/100 WBC (Bld) 7 % Normal 1-7 [facility] [place] Comment on above: Performed By: #### C DP, PT, REJEC #### [facility] [place] [address] Manager Copy: Mike Bill DO Morphology Jeffery (Bld) [Interp] ANISOCYTOSIS PRESENT Normal [facility] [place] Comment on above: Result Comment: HYPO CHROMIA PRESENT MICROCYTOSIS PRESENT 1+ ELLIPTOCYTES 1+ ECHINOCYTES FEW SCHISTOCYTES Performed By: #### C DP, PT, REJEC #### [facility] [place] [address] Manager Copy: Mike Bill DO Neutrophil (Seg) 79 % High 36-66 [facility] Comment on above: Performed By: #### C DP, PT, REJEC #### [facility] [address] Manager Copy: Mike Bill DO Erythrocyte distribution width (RBC) [Ratio] 23.8 % High 11.5-14.9 [facility] Comment on above: Performed By: #### C DP, PT, REJEC #### [facility] [place] [address] Manager Copy: Mike Bill DO Hematocrit (Bld) [Volume fraction] 38.6 % Normal 36-46 [facility] [place] Comment on above: Performed By: #### C DP, PT, REJEC #### [facility] [address] [place] [address] Manager Copy: Mike Bill DO Hemoglobin (Bld) [Mass/Vol] 10.9 g/dL Low 12.0-16.0 [facility] Comment on above: Performed By: #### C DP, PT, REJEC #### [facility] [address] [place] [address] Manager Copy: Mike Bill DO MCH (RBC) [Entitic mass] 18.1 pg Low 26-34 [facility] [place] Comment on above: Performed By: #### C DP, PT, REJEC #### [facility] [address] [place] [address] Manager Copy: Mike Bill DO MCHC (RBC) [Mass/Vol] 28.1 g/dL Low 31-37 [facility] Comment on above: Performed By: #### C DP, PT, REJEC #### [facility] [address] [place] [address] Manager Copy: Mike Bill DO MCV (RBC) [Entitic vol] 64.3 fL Low 80-100 [facility] Comment on above: Performed By: #### C DP, PT, REJEC #### [facility] [address] [place] [address]. [place] [address] Manager Copy: Mike Bill DO Platelet mean volume (Bld) [Entitic vol] 9.2 fL Normal 6.0-12.0 [facility] Comment on above: Performed By: #### C DP, PT, REJEC #### [facility] [address] [facility] [place] [address] Manager Copy: Mike Bill DO Platelets (Bld) [#/Vol] 226 10*3/uL Normal 150-450 [facility] Comment on above: Performed By: #### C DP, PT, REJEC #### [facility] [place] [address] Manager Copy: Mike Bill DO RBC (Bld) [#/Vol] 6.01 10*6/uL High 4.0-5.2 [facility] Comment on above: Performed By: #### C DP, PT, REJEC #### [facility] [place] [address] Manager Copy: Mike Bill DO WBC (Bld) [#/Vol] 13.3 10*3/uL High 3.5-11.0 [facility] Comment on above: Performed By: #### C DP, PT, REJEC #### [facility] [address] [place] [address]. [place] [address] Manager Copy: Mike Bill DO CBC with auto differentialon 10-06-2023 Basophils (Bld) [#/Vol] 0.13 10*3/uL [facility] Basophils/100 WBC (Bld) 1 % 0 - 2 % [facility] Eosinophils (Bld) [#/Vol] 0.00 10*3/uL [facility] Eosinophils/100 WBC (Bld) 0 % 0 - 4 % [facility] Erythrocyte distribution width (RBC) [Ratio] 23.8 % High 11.5 - 14.9 % [facility] Hematocrit (Bld) [Volume fraction] 38.6 % 36 - 46 % [facility] Hemoglobin (Bld) [Mass/Vol] 10.9 g/dL Low 12.0 - 16.0 g/dL [facility] Interpretation and review of laboratory results Abnormal [facility] Lymphocytes/100 WBC (Bld) 13 % Low 24 - 44 % [facility] Lymphocytes/100 WBC (Bld) 1.73 % [facility] MCH (RBC) [Entitic mass] 18.1 pg Low 26 - 34 pg [facility] MCHC (RBC) [Mass/Vol] 28.1 g/dL Low 31 - 3 7 g/dL [facility] MCV (RBC) [Entitic vol] 64.3 fL Low 80 - 100 fL [facility] Monocytes/100 WBC (Bld) 7 % 1 - 7 % [facility] Monocytes/100 WBC (Bld) 0.93 % [facility] Morphology Jeffery (Bld) [Interp] ANISOCYTOSIS PRESENT [facility] Morphology Jeffery (Bld) [Interp] HYPOCHROMIA PRESENT [facility] Morphology Jeffery (Bld) [Interp] MICROCYTOSIS PRESENT [facility] Morphology Jeffery (Bld) [Interp] 1+ ELLIPTOCYTES [facility] Morphology Jeffery (Bld) [Interp] 1+ ECHINOCYTES [facility] Morphology Jeffery (Bld) [Interp] FEW SCHISTOCYTES [facility] Neutrophils/100 WBC (Bld) 79 % High 36 - 66 % [facility] Platelet mean volume (Bld) [Entitic vol] 9.2 fL 6.0 - 12.0 fL [facility] Platelets (Bld) [#/Vol] 226 10*3/uL [facility] RBC (Bld) [#/Vol] 6.01 10*6/uL High 4.0 - 5.2 m/uL [facility] Segmented neutrophils/100 WBC (Bld) 10.51 % High [facility] WBC other (Bld) [#/Vol] 13.3 [facility] CT HEAD WO CONTRASTon 2023 [...] Kelechi Cuevas DO 10/05/23 Final result Normal [facility] CTA HEAD NECK W CONTRASTon 0 10-06-2023 [...] Brittney Lawson MD 10/05/23 Final result Normal [facility] K (Potassium)on 10-06-2023 Potassium [Moles/Vol] 3.4 mmol/L Low 3.7-5.3 [facility] Comment on above: Result Comment: SPEC IMEN MODERATELY HEMOLYZED, RESULTS MAY BE ADVERSELY AFFECTED Performed By: #### K , TSHX ####[facility] [address] [place] [address] Lab Director: Mike Bill DO PTon 10-06-2023 INR Coag (PPP) [Relative time] 1.1 {INR} Normal [facility] Comment on above: Result Comment: Therapeutic Range: Moderate Anticoagulant Intensity: INR = 2.0-3.0 High Anticoagulant Intensity: INR = 2.5-3.5 Performed By: #### C DP, PT, REJEC #### [facility] [address] [facility] [place] [address] Manager Copy: Mike Bill DO PT Coag (PPP) [Time] 14.7 s High 11.8-14.6 [facility] Comment on above: Performed By: #### C DP, PT, REJEC #### [facility] [address] [facility] [place], [place] [id number] Manager Copy: Mike Bill DO Path Review, Smearon 024 Pathologist review Pathologist comment (Bld) [Interp] ELECTRONICALLY SIGNED. ELENITA CARR M.D. [facility] Potassiumon 10-06-2023 Interpretation and review of laboratory results Abnormal [facility] Potassium [Moles/Vol] 3.4 mmol/L Low 3.7 - 5.3 mmol/L [facility] Comment on above: SPECIMEN MODERATELY HEMOLYZED, RESULTS MAY BE ADVERSELY AFFECTED [facility] Protime-INRon 10-06-2023 INR Coag (PPP) [Relative time] 1.1 {INR} [facility] Comment on above: Therapeutic Range: Moderate Anticoagulant Intensity: INR = 2.0-3.0 High Anticoagulant Intensity: INR = 2.5-3.5 Interpretation and review of laboratory results Abnormal [facility] PT Coag (PPP) [Time] 14.7 s High [facility] SURGICAL PATHOLOGY REPORTon 10-06-2023 Surgical Pathology Report [id number] [facility] [employer] [facility] ANATOMIC PATHOLOGY [address] [place] [address]. [place], [place] [address] SURGICAL PATHOLOGY CONSULTATION Patient Name: ESSENCE VINCENT MR#: [id number] Specimen #[id number] Procedures/Addenda PERIPHERAL BLOOD REPORT Date Ordered: 10/06/2023 [...] the electronic health record for CBC parameters ([id number], 10/05/2023, TIME UNKNOWN). PLATELETS: Platelets show normal morphology. LEUKOCYTES: White blood cells show normal morphology. No atypical lymphocytes. No dysplasia. There are no blasts. ERYTHROCYTES: Microcytic hypochromic anemia with moderate anisopoikilocytosis and elevated RBC count. Note: The electronic health record is reviewed. Elenita Carr M.D. Source: A: Peripheral Blood [facility] Smear to Pathologiston 10-06 Smear to Pathologist ELECTRONICALLY SIGN ED. ELENITA CARR M.D. Normal [facility] [place] Comment on above: Performed By: #### P T, TROPI, ALCB, CDP, MG, CP, RETCT ####[facility] [id number] [facility] [place] [address] Lab Director: Mike Bill DO#### PATH ####[facility] [place] [address] lab Director: Heladio Lawson MD Specimen Rejectionon 024 Reason for rejection Unable to perform testing: Specimen hemolyzed. Normal [facility] [place] Comment on above: Performed By: #### C DP, PT, REJEC #### [facility] [address] [facility] [place] [address] Manager Copy: Mike Bill DO Source of sample .BLOOD Normal [facility] Comment on above: Performed By: #### C DP, PT, REJEC #### [facility] [address] [place] [address] Manager Copy: Mike Bill DO Test ordered BMPX Normal [facility] [place] Comment on above: Performed By: #### C DP, PT, REJEC #### [facility] [address] [place] [address] Manager Copy: Mike Bill DO TSH w/reflex to FT4on 2023 Thyroid Stim. Horm. 3.45 uIU/mL Normal 0.30-5.00 [facility] Comment on above: Performed By: #### K , TSHX ####[facility] [id number] [place] [address] Lab Director: Mike Bill DO TSH with Reflexon 10-06-2023 TSH Qn 3.45 m[IU]/L [facility] Troponinon 10-06-2023 Troponin, High Sens 25 ng/L High 0-14 [facility] [place] Comment on above: Result Comment: High Sensitivity Troponin values cannot be compared with other Troponin methodologies. Performed By: #### T ROPI ####[facility] Orw6753 [place] [address] Lab Director: Mike Bill DO CBC with Auto Differentialon 10-05-2023 Basophils (Bld) [#/Vol] 0.11 10*3/uL [facility] Basophils/100 WBC (Bld) 1 % 0 - 2 % [facility] Eosinophils (Bld) [#/Vol] 0.11 10*3/uL [facility] Eosinophils/100 WBC (Bld) 1 % 0 - 4 % [facility] Erythrocyte distribution width (RBC) [Ratio] 23.6 % High 11.5 - 14.9 % [facility] Hematocrit (Bld) [Volume fraction] 35.7 % Low 36 - 46 % [facility] Hemoglobin (Bld) [Mass/Vol] 10.5 g/dL Low 12.0 - 16.0 g/dL [facility] Interpretation and review of laboratory results Abnormal [facility] Lymphocytes/100 WBC (Bld) 20 % Low 24 - 44 % [facility] Lymphocytes/100 WBC (Bld) 2.16 % [facility] MCH (RBC) [Entitic mass] 18.1 pg Low 26 - 34 pg [facility] MCHC (RBC) [Mass/Vol] 29.4 g/dL Low 31 - 3 7 g/dL [facility] MCV (RBC) [Entitic vol] 61.7 fL Low 80 - 100 fL [facility] Monocytes/100 WBC (Bld) 11 % High 1 - 7 % [facility] Monocytes/100 WBC (Bld) 1.19 % [facility] Morphology Jeffery (Bld) [Interp] ANISOCYTOSIS PRESENT [facility] Morphology Jeffery (Bld) [Interp] MICROCYTOSIS PRESENT [facility] Morphology Jeffery (Bld) [Interp] HYPOCHROMIA PRESENT [facility] Morphology Jeffery (Bld) [Interp] ELLIPTOCYTES [facility] Morphology Jeffery (Bld) [Interp] ECHINOCYTES [facility] Morphology Jeffery (Bld) [Interp] STOMATOCYTES [facility] Neutrophils/100 WBC (Bld) 67 % High 36 - 66 % [facility] Platelet mean volume (Bld) [Entitic vol] 8.6 fL 6.0 - 12.0 fL [facility] Platelets (Bld) [#/Vol] 268 10*3/uL [facility] RBC (Bld) [#/Vol] 5.79 10*6/uL High 4.0 - 5.2 m/uL [facility] Segmented neutrophils/100 WBC (Bld) 7.23 % [facility] WBC other (Bld) [#/Vol] 10.8 [facility] CBC with Diffon 10-05-2023 Abs. Basophil 0.11 k/uL Normal 0.0-0.2 [facility] [place] Comment on above: Performed By: #### P T, TROPI, ALCB, CDP, MG, CP, RETCT ####[facility] [id number] [facility].[place], [place] [address])[phone] Director: Mike Bill DO#### PATH ####[address] [address])[phone] Director: Heladio Lawson MD Abs.Neutrophil (Seg) 7.23 k/uL Normal 1.3-9.1 [facility] Comment on above: Performed By: #### P T, TROPI, ALCB, CDP, MG, CP, RETCT ####[facility] [id number] [place] [address])[phone] Director: Mike Bill DO#### PATH ####[address] [address] Lab Director: Heladio Lawson MD Basophils/100 WBC (Bld) 1 % Normal 0-2 [facility] [place] Comment on above: Performed By: #### P T, TROPI, ALCB, CDP, MG, CP, RETCT ####[facility] Qhc8970 [place], [place] [address])[phone] Director: Mike Bill DO#### PATH ####[address] [address] Lab Director: Heladio Lawson MD Eosinophils (Bld) [#/Vol] 0.11 10*3/uL Normal 0.0-0.4 [facility] [place] Comment on above: Performed By: #### P T, TROPI, ALCB, CDP, MG, CP, RETCT ####[facility] Hjs8346 [place], [place] [address])[phone] Director: Mike Bill DO#### PATH ####[address] [address] Lab Director: Heladio Lawson MD Eosinophils/100 WBC (Bld) 1 % Normal 0-4 [facility] [place] Comment on above: Performed By: #### P T, TROPI, ALCB, CDP, MG, CP, RETCT ####[facility] Ekn[address]659 [place], [place] [address])[phone] Director: Mike Bill DO#### PATH ####[address] [address])[phone] Director: Heladio Lawson MD Lymphocytes (Bld) [#/Vol] 2.16 10*3/uL Normal 1.0-4.8 [facility] [place] Comment on above: Performed By: #### P T, TROPI, ALCB, CDP, MG, CP, RETCT ####[facility] Gdh6267 [place], [place] [address])[phone] Director: Mike Bill DO#### PATH ####[address] [address])[phone] Director: Heladio Lawson MD Lymphocytes/100 WBC (Bld) 20 % Low 24-44 [facility] [place] Comment on above: Performed By: #### P T, TROPI, ALCB, CDP, MG, CP, RETCT ####[facility] Gpw0122 [place], [place] [address])[phone] Director: Mike Bill DO#### PATH ####[address] [address])[phone] Director: Heladio Lawson MD Monocytes (Bld) [#/Vol] 1.19 10*3/uL Normal 0.1-1.3 [facility] [place] Comment on above: Performed By: #### P T, TROPI, ALCB, CDP, MG, CP, RETCT ####[facility] Exi4756 [place], [place] [phone] Director: Mike Bill DO#### PATH ####[address] [phone])[phone] Director: Heladio Lawson MD Monocytes/100 WBC (Bld) 11 % High 1-7 [facility] [place] Comment on above: Performed By: #### P T, TROPI, ALCB, CDP, MG, CP, RETCT ####[facility] Flr9725 [place], [place] [phone] Director: Mike Bill DO#### PATH ####[address] [phone] Director: Heladio Lawson MD Morphology Jeffery (Bld) [Interp] ANISOCYTOSIS PRESENT Normal [facility] [place] Comment on above: Result Comment: MICR OCYTOSIS PRESENT HYPOCHROMIA PRESENT ELLIPTOCYTES ECHINOCYTES STOMATOCYTES Performed By: #### P T, TROPI, ALCB, CDP, MG, CP, RETCT ####[facility] Pta9665 [place], [place] [phone] Director: Mike Bill DO#### PATH ####[address] [phone] Director: Heladio Lawson MD Neutrophil (Seg) 67 % High 36-66 [facility] Comment on above: Performed By: #### P T, TROPI, ALCB, CDP, MG, CP, RETCT ####[facility] Rma7362 [place], [place] [phone] Director: Mike Bill DO#### PATH ####[address] [address] Lab Director: Heladio Lawson MD Erythrocyte distribution width (RBC) [Ratio] 23.6 % High 11.5-14.9 [facility] [place] Comment on above: Performed By: #### P T, TROPI, ALCB, CDP, MG, CP, RETCT ####[facility] Icn4553 [place] [address] [facility] Director: Mike Bill DO#### PATH ####[address] [address] [facility] Director: Heladio Lawson MD Hematocrit (Bld) [Volume fraction] 35.7 % Low 36-46 [facility] [place] Comment on above: Performed By: #### P T, TROPI, ALCB, CDP, MG, CP, RETCT ####[address] [address] [facility] Director: Mike Bill DO#### PATH ####[address] [address] Lab Director: Heladio Lawson MD Hemoglobin (Bld) [Mass/Vol] 10.5 g/dL Low 12.0-16.0 [facility] Comment on above: Performed By: #### P T, TROPI, ALCB, CDP, MG, CP, RETCT ####[facility] Eal0276 [place] [address] [facility] Director: Mike Bill DO#### PATH ####[address] [address] Lab Director: Heladio Lawson MD MCH (RBC) [Entitic mass] 18.1 pg Low 26-34 [facility] [place] Comment on above: Performed By: #### P T, TROPI, ALCB, CDP, MG, CP, RETCT ####[facility] Ekl6139 [place], [place] [phone] Director: Mike Bill DO#### PATH ####[address] [phone] Director: Heladio Lawson MD MCHC (RBC) [Mass/Vol] 29.4 g/dL Low 31-37 [facility] Comment on above: Performed By: #### P T, TROPI, ALCB, CDP, MG, CP, RETCT ####[facility] Nbw6660 [place], [place] [phone] Director: Mike Bill DO#### PATH ####[address] [phone] Director: Heladio Lawson MD MCV (RBC) [Entitic vol] 61.7 fL Low 80-100 [facility] [place] Comment on above: Performed By: #### P T, TROPI, ALCB, CDP, MG, CP, RETCT ####[facility] Cje4693 [place], [place] [address])[phone] Director: Mike Bill DO#### PATH ####[address] [address])[phone] Director: Heladio Lawson MD Platelet mean volume (Bld) [Entitic vol] 8.6 fL Normal 6.0-12.0 [facility] [place] Comment on above: Performed By: #### P T, TROPI, ALCB, CDP, MG, CP, RETCT ####[facility] [id number] [place], [place] [address])[phone] Director: Mike Bill DO#### PATH ####[address] [phone])[phone] Director: Heladio Lawson MD Platelets (Bld) [#/Vol] 268 10*3/uL Normal 150-450 [facility] [place] Comment on above: Performed By: #### P T, TROPI, ALCB, CDP, MG, CP, RETCT ####[facility] Ipj8524 [facility], [place] [phone])[phone] Director: Mike Bill DO#### PATH ####[address] [place], [place] [phone] Director: Heladio Lawson MD RBC (Bld) [#/Vol] 5.79 10*6/uL High 4.0-5.2 [facility] [place] Comment on above: Performed By: #### P T, TROPI, ALCB, CDP, MG, CP, RETCT ####[facility] Fpz4961 [place], [place] [phone] Director: Mike Bill DO#### PATH ####[address] [id number])[phone] Director: Heladio Lawson MD WBC (Bld) [#/Vol] 10.8 10*3/uL Normal 3.5-11.0 [facility] [place] Comment on above: Performed By: #### P T, TROPI, ALCB, CDP, MG, CP, RETCT ####[facility] Uzu0862 [place], [place] [phone] Director: Mike Bill DO#### PATH ####[address] [phone] Director: Heladio Lawson MD CT Head WO contraston 2023 1. Mild patchy periventricular and subcortical white matter changes. Findings are favored to represent chronic small vessel ischemic changes. If clinical concerns for acute ischemia, further assessment with MRI is recommended. 2. Otherwise, no acute findings. 3. Bifrontal distribution cortical atrophy is greater than expected for patient's age. [facility] RIS CONSOLIDATED EXAMINATION: CT OF THE [...] of the visualized skull or soft tissues. [facility] RIS CONSOLIDATED Kelechi Cuevas, - 10/05/2023 [...] is greater than expected for patient's age. [facility] Radiology Study observation (narrative) [facility] CT Head WO contrastOrdered B y: Kelechi Cuevas on 10-05-2023 [facility] Work Phone: CTA Head vessels and Neck ve ssels W contrast Noah 10-05-2023 1. No evidence of significant arterial stenosis or occlusion in the head or neck. 2. 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 3. Emphysema in the imaged lung apices. [facility] RIS CONSOLIDATED EXAMINATION: CTA OF THE [...] 3. Emphysema in the imaged lung apices. [facility] Radiology Study observation (narrative) [facility] CTA Head vessels and Neck ve ssels W contrast IVOrdered By: Brittney Lawson on 10-05-2023 [facility] Work Phone: Comp Metabolic Profon 2023 Potassium [Moles/Vol] 2.2 mmol/L Critically low 3.7-5.3 [facility] [place] Comment on above: Performed By: #### P T, TROPI, ALCB, CDP, MG, CP, RETCT ####[facility] Igc4776 [place] [address] [facility] Director: Mike Bill DO#### PATH ####[address] [address] Lab Director: Heladio Lawson MD Albumin [Mass/Vol] 4.1 g/dL Normal 3.5-5.2 [facility] [place] Comment on above: Performed By: #### P T, TROPI, ALCB, CDP, MG, CP, RETCT ####[facility] Vfl6492 [place] [address] [facility] Director: Mike Bill DO#### PATH ####[address] [place] [address] Lab Director: Heladio Lawson MD Alkaline Phos 316 U/L High 35-104 [facility] [place] Comment on above: Performed By: #### P T, TROPI, ALCB, CDP, MG, CP, RETCT ####[facility] Uvi5463 [place] [address] [facility] Director: Mike Bill DO#### PATH ####[address] [address] Lab Director: Heladio Lawson MD ALT [Catalytic activity/Vol] 19 U/L Normal 5-33 [facility] [place] Comment on above: Performed By: #### P T, TROPI, ALCB, CDP, MG, CP, RETCT ####[facility] Alq9192 [place], [place] [address])[phone] Director: Mike Bill DO#### PATH ####[address] [address] Lab Director: Heladio Lawson MD Anion gap [Moles/Vol] 19 mmol/L High 9-17 [facility] Comment on above: Performed By: #### P T, TROPI, ALCB, CDP, MG, CP, RETCT ####[facility] Quf1597 [place], [place] [address])[phone] Director: Mike Bill DO#### PATH ####[address] [address] Lab Director: Heladio Lawson MD AST [Catalytic activity/Vol] 55 U/L High <32 [facility] [place] Comment on above: Performed By: #### P T, TROPI, ALCB, CDP, MG, CP, RETCT ####[facility] Dxm7835 [place], [place] [address])[phone] Director: Mike Bill DO#### PATH ####[address] [address] Lab Director: Heladio Lawson MD Bilirubin [Mass/Vol] 0.7 mg/dL Normal 0.3-1.2 [facility] Comment on above: Performed By: #### P T, TROPI, ALCB, CDP, MG, CP, RETCT ####[facility] [id number] [facility], [place] [phone])[phone] Director: Mike Bill DO#### PATH ####[address] [phone] Director: Heladio Lawson MD Calcium [Mass/Vol] 9.7 mg/dL Normal 8.6-10.4 [facility] Comment on above: Performed By: #### P T, TROPI, ALCB, CDP, MG, CP, RETCT ####[facility] Yvk8584 [place] [address] Lab Director: Mike Bill DO#### PATH ####[address] [address] Lab Director: Heladio Lawson MD Chloride [Moles/Vol] 96 mmol/L Low 98-107 [facility] Comment on above: Performed By: #### P T, TROPI, ALCB, CDP, MG, CP, RETCT ####[facility] Mch5820 [place] [address] Lab Director: Mike Bill DO#### PATH ####[address] [address] Lab Director: Heladio Lawson MD CO2 [Moles/Vol] 23 mmol/L Normal 20-31 [facility] Comment on above: Performed By: #### P T, TROPI, ALCB, CDP, MG, CP, RETCT ####[facility] Zrk3674 [place], [place] [id number])[phone] Director: Mike Bill DO#### PATH ####[address] [address] Lab Director: Heladio Lawson MD Creatinine [Mass/Vol] 1.2 mg/dL High 0.5-0.9 [facility] Comment on above: Performed By: #### P T, TROPI, ALCB, CDP, MG, CP, RETCT ####[facility] Kij7664 [place] [address] Lab Director: Mike Bill DO#### PATH ####[address] [address] [facility] Director: Heladio Lawson MD GFR/1.73 sq M.predicted among non-blacks MDRD (S/P/Bld) [Vol rate/Area] 54 mL/min/{1.73_m2} Low >60 [facility] Comment on above: Result Comment: These results [...] T, TROPI, ALCB, CDP, MG, CP, RETCT ####[facility] Hzu9896 [place], [place] [address])[phone] Director: Mike Bill DO#### PATH ####[address] [address] Lab Director: Heladio Lawson MD Glucose [Mass/Vol] 181 mg/dL High 70-99 [facility] Comment on above: Performed By: #### P T, TROPI, ALCB, CDP, MG, CP, RETCT ####[facility] Ohf7852 [place] [address] Lab Director: Mike Bill DO#### PATH ####[address] [phone] Lab Director: Heladio Lawson MD Protein [Mass/Vol] 8.1 g/dL Normal 6.4-8.3 [facility] Comment on above: Performed By: #### P T, TROPI, ALCB, CDP, MG, CP, RETCT ####[facility] Fiz6317 [place] [address] Lab Director: Mike Bill DO#### PATH ####[address] [place] [address] Lab Director: Heladio Lawson MD Sodium [Moles/Vol] 138 mmol/L Normal 135-144 [facility] Comment on above: Performed By: #### P T, TROPI, ALCB, CDP, MG, CP, RETCT ####[facility] Xpi6392 [place] [address] Lab Director: Mike Bill DO#### PATH ####[address] [address] Lab Director: Heladio Lawson MD Urea nitrogen [Mass/Vol] 17 mg/dL Normal 6-20 [facility] Comment on above: Performed By: #### P T, TROPI, ALCB, CDP, MG, CP, RETCT ####[facility] Avy7590 [place] [address] Lab Director: Mike Bill DO#### PATH ####[address] [address] Lab Director: Heladio Lawson MD Comprehensive Metabolic Pane siddharth 10-05-2023 Albumin [Mass/Vol] 4.1 g/dL 3.5 - 5.2 g/dL [facility] ALP [Catalytic activity/Vol] 316 U/L High 35 - 104 U/L [facility] ALT [Catalytic activity/Vol] 19 U/L 5 - 33 U/L [facility] Anion gap [Moles/Vol] 19 mmol/L High 9 - 17 mmol/L [facility] AST [Catalytic activity/Vol] 55 U/L High NINF - 32 U/L [facility] Bilirubin [Mass/Vol] 0.7 mg/dL 0.3 - 1 .2 mg/dL [facility] Calcium [Mass/Vol] 9.7 mg/dL 8.6 - 10. 4 mg/dL [facility] Chloride [Moles/Vol] 96 mmol/L Low 98 - 10 7 mmol/L [facility] CO2 [Moles/Vol] 23 mmol/L 20 - 31 mmol/L [facility] Creatinine [Mass/Vol] 1.2 mg/dL High 0.5 - 0.9 mg/dL [facility] GFR/1.73 sq M.predicted MDRD (S/P/Bld) [Vol rate/Area] 54 mL/min/{1.73_m2} Low - PINF [facility] Comment on above: These results are [...] 181 mg/dL High 70 - 99 mg/dL [facility] Interpretation and review of laboratory results Abnormal [facility] Potassium [Moles/Vol] 2.2 mmol/L Critically low 3.7 - 5.3 mmol/L [facility] Protein [Mass/Vol] 8.1 g/dL 6.4 - 8.3 g/dL [facility] Sodium [Moles/Vol] 138 mmol/L 135 - 144 mmol/L [facility] Urea nitrogen [Mass/Vol] 17 mg/dL 6 - 20 mg/dL [facility] Drug Scr, Abuse, Uron 2023 Amphetamine(s),Ur Negative Normal [facility] Comment on above: Result Comment: (Positive cutoff 1000 ng/mL) Performed By: #### U MICAO, UAX, INDIRA ####[facility] Mem9432 [place] [address] Lab Director: Mike Bill DO Barbiturate(s),Ur Positive Abnormal [facility] Comment on above: Result Comment: (Positive cutoff 200 ng/mL) Performed By: #### U MICAO, UAX, INDIRA ####[facility] Yoh2168 [place] [address] Lab Director: Mike Bill DO Benzodiazepine(s) Negative Normal [facility] Comment on above: Result Comment: (Positive cutoff 200 ng/mL) Performed By: #### U MICAO, UAX, INDIRA ####[facility] [id number] [place] [address] Lab Director: Mike Bill DO Cannabinoid(s),Ur Positive Abnormal [facility] Comment on above: Result Comment: (Positive cutoff 50 ng/mL) Performed By: #### U MICAO, UAX, INDIRA ####[facility] [id number] [place] [address] Lab Director: Mike Bill DO Cocaine Metabolite Negative Normal NEG [facility] Comment on above: Result Comment: (Positive cutoff 300 ng/mL) Performed By: #### U MICAO, UAX, INDIRA ####[facility] Plx8922 [place] [address] Lab Director: Mike Bill DO Fentanyl, Urine Negative Normal NEG [facility] Comment on above: Result Comment: (Positive cutoff 5 ng/ml) Performed By: #### U MICAO, UAX, INDIRA ####[facility] [id number] [place] [address] Lab Director: Mike Bill DO Interpretive Info Assay provides medic al screening only. The absence of expected drug(s) and/or Normal [facility] Comment on above: Result Comment: meta bolite(s) may indicate diluted or adulterated urine, limitations of testing or timing of collection. Testing for legal purposes should be confirmed by another method. To request confirmation of test result, please call the lab within 7 days of sample submission. Performed By: #### U MICAO, UAX, INDIRA ####[facility] Xwq2756 [place] [address] Lab Director: Mike Bill DO Methadone Ql (U) Negative Normal NEG [facility] Comment on above: Result Comment: (Positive cutoff 300 ng/mL) Performed By: #### U MICAO, UAX, INDIRA ####[facility] [id number] [place] [address] Lab Director: Mike Bill DO Opiate(s), Ur Negative Normal NEG [facility] Comment on above: Result Comment: (Positive cutoff 300 ng/mL) Performed By: #### U MICAO, UAX, INDIRA ####[facility] [id number] [place] [address] Lab Director: Mike Bill DO Oxycodone, Urine Negative Normal NEG [facility] Comment on above: Result Comment: (Positive cutoff 100 ng/mL) Performed By: #### U MICAO, UAX, INDIRA ####[facility] [address] [place] [address] Lab Director: Mike Bill DO Phencyclidine, Ur Negative Normal [facility] Center Comment on above: Result Comment: (Positive cutoff 25 ng/mL) Performed By: #### U MICAO, UAX, INDIRA ####[facility] [address] [place] [address] Lab Director: Mike Bill DO ED Note-Physicianon 02-06-20 24 ED Note-Physician [id number] Normal [facility] Ethanolon 10-05-2023 Ethanol percent <0.010 % [facility] Ethanolamine [Mass/Vol] mg/dL NINF - 10 mg/dL [facility] Ethanol Alcoholon 10-05-2023 Ethanol [Mass/Vol] mg/dL Normal <10 [facility] Comment on above: Performed By: #### P T, TROPI, ALCB, CDP, MG, CP, RETCT ####[facility] [address] [place] [address] Lab Director: Mike Bill DO#### PATH ####[address] [address] lab Director: Heladio Lawson MD Ethanol percent <0.010 Normal [facility] Comment on above: Performed By: #### P T, TROPI, ALCB, CDP, MG, CP, RETCT ####[facility] [address]jg[address] [place] [address] Lab Director: Mike Bill DO#### PATH ####[address] [address] Lab Director: Heladio Lawson MD Magnesiumon 10-05-2023 Magnesium [Mass/Vol] 2.1 mg/dL Normal 1.6-2.6 [facility] Comment on above: Performed By: #### P T, TROPI, ALCB, CDP, MG, CP, RETCT ####[facility] Edm[address] [place] [address] Lab Director: Mike Bill DO#### PATH ####[address] [address] Lab Director: Heladio Lawson MD Magnesium [Mass/Vol] 2.1 mg/dL 1.6 - 2 .6 mg/dL [facility] Microscopic Urinalysison Bacteria LM Ql (Urine sed) FEW Abnormal None [facility] Casts LM.LPF (Urine sed) [#/Area] HYALINE Abnormal None /LPF [facility] Casts LM.LPF (Urine sed) [#/Area] 6 TO 9 Abnormal None /LPF [facility] Casts LM.LPF (Urine sed) [#/Area] FINE GRANULAR Abnormal None /LPF [facility] Casts LM.LPF (Urine sed) [#/Area] 10 TO 20 Abnormal None /LPF [facility] Epithelial cells LM.HPF (Urine sed) [#/Area] 10 TO 20 /HPF [facility] Interpretation and review of laboratory results Abnormal [facility] Mucus Ql (Urine sed) 1+ [facility] RBC LM.HPF (Urine sed) [#/Area] 3 to 5 Abnormal 0 TO 2 /HPF [facility] WBC LM.HPF (Urine sed) [#/Area] 6 TO 9 Abnormal 0 TO 5 /HPF [facility] No Panel Informationon 10-05 [facility] PTon 10-05-2023 INR Coag (PPP) [Relative time] 1.1 {INR} Normal [facility] Comment on above: Result Comment: Therapeutic Range: Moderate Anticoagulant Intensity: INR = 2.0-3.0 High Anticoagulant Intensity: INR = 2.5-3.5 Performed By: #### P T, TROPI, ALCB, CDP, MG, CP, RETCT ####[facility] [id number] [place] [address] Lab Director: Mike Bill DO#### PATH ####[address] [place], [place] [id number] lab Director: Heladio Lawson MD PT Coag (PPP) [Time] 14.5 s Normal 11.8-14.6 [facility] Comment on above: Performed By: #### P T, TROPI, ALCB, CDP, MG, CP, RETCT ####[facility] [address] [place] [address] lab Director: Mike Bill DO#### PATH ####[facility] [address] [place] [address] lab Director: Heladio Lawson MD Portable XR Chest AP single viewon 10-05-2023 Cardiomegaly, with m ild pulmonary vascular congestion. [facility] EXAMINATION: ONE XRAY VIEW OF THE [...] pneumothorax is identified. No acute osseous abnormality. [facility] Derrick Zapien MD - 10/05/2023 EXAMINATION: [...] IMPRESSION: Cardiomegaly, with mild pulmonary vascular congestion. [facility] Study observation (narrative) [employer] Portable XR Chest AP single viewOrdered By: Derrick Zapien on 10-05-2023 [employer] Work Phone: [employer]-INRon 10-05-2023 INR Coag (PPP) [Relative time] 1.1 {INR} [facility] Comment on above: Therapeutic Range: Moderate Anticoagulant Intensity: INR = 2.0-3.0 High Anticoagulant Intensity: INR = 2.5-3.5 PT Coag (PPP) [Time] 14.5 s [facility] Retic Counton 10-05-2023 Absolute Retic 0.069 M/uL Normal 0.0245-0.0 98 [facility] Comment on above: Performed By: #### P T, TROPI, ALCB, CDP, MG, CP, RETCT ####[facility] [address] [place] [address] [facility] Director: Mike Bill DO#### PATH ####[place] [address] lab Director: Heladio Lawson MD Retic Count 1.2 % Normal 0.5-2.0 [facility] Comment on above: Performed By: #### P T, TROPI, ALCB, CDP, MG, CP, RETCT ####[facility] [address]ju[address] [place] [address] [facility] Director: Mike Bill DO#### PATH ####[place] [address] lab Director: Heladio Lawson MD Reticulocyteson 10-05-2023 Reticulocytes (Bld) [#/Vol] 0.069 10*3/uL [facility] Reticulocytes/100 RBC (Bld) 1.2 % 0.5 - 2.0 % [facility] Surgical Pathology Reporton 10-05-2023 Surgical Pathology Report (NOTE) [id number] [employer] [facility] ANATOMIC PATHOLOGY [address] [place] [address]. [place], [place] [address] SURGICAL PATHOLOGY CONSULTATION Patient Name: ESSENCE VINCENT MR#: [id number] Specimen #[id number] Procedures/Addenda PERIPHERAL BLOOD REPORT Date Ordered: 10/06/2023 [...] the electronic health record for CBC parameters ([id number], 10/05/2023, TIME UNKNOWN). PLATELETS: Platelets show normal morphology. LEUKOCYTES: White blood cells show normal morphology. No atypical lymphocytes. No dysplasia. There are no blasts. ERYTHROCYTES: Microcytic hypochromic anemia with moderate anisopoikilocytosis and elevated RBC count. Note: The electronic health record is reviewed. Elenita Carr M.D. Source: A: Peripheral Blood Normal [facility] Troponinon 10-05-2023 Interpretation and review of laboratory results Abnormal [facility] Troponin I.cardiac High sensitivity method [Mass/Vol] 25 ng/L High 0 - 14 ng/L [facility] Comment on above: High Sensitivity Tro ponin values cannot be compared with other Troponin methodologies. [facility] Troponin, High Sens 24 ng/L High 0-14 [facility] Comment on above: Result Comment: High Sensitivity Troponin values cannot be compared with other Troponin methodologies. Performed By: #### P T, TROPI, ALCB, CDP, MG, CP, RETCT ####[facility] [address] [place] [address] Lab Director: Mike Bill DO#### PATH ####[address] [place] [address] lab Director: Heladio Lawson MD Interpretation and review of laboratory results Abnormal [facility] Troponin I.cardiac High sensitivity method [Mass/Vol] 24 ng/L High 0 - 14 ng/L [facility] Comment on above: High Sensitivity Tro ponin values cannot be compared with other Troponin methodologies. [facility] UA w/Reflex Cultureon 2023 Bilirubin, SemiQt,Ur Negative Normal NEG [facility] Comment on above: Performed By: #### U MICAO, UAX, INDIRA ####[facility] [address] [facility] [place] [address] Lab Director: Mike Bill DO Blood, Urine TRACE Abnormal NEG [facility] Comment on above: Performed By: #### U MICAO, UAX, INDIRA ####[facility] T[address] [facility], [place] [phone] Director: Mike Bill DO Clarity (U) Clear Normal CLEAR [facility] Comment on above: Performed By: #### U MICAO, UAX, INDIRA ####[facility] [address] [facility] [place] [address] Lab Director: Mike Bill DO Color (U) Dark Yellow Abnormal YEL [facility] Comment on above: Performed By: #### U MICAO, UAX, INDIRA ####[facility] [id number] [facility] [place] [address] Lab Director: Mike Bill DO Glucose Ql (U) Negative Normal NEG [facility] Comment on above: Performed By: #### U MICAO, UAX, INDIRA ####[facility] Igm[address]67 [facility] [place] [address] Lab Director: Mike Bill DO Ketones Ql (U) TRACE Abnormal NEG [facility] Comment on above: Performed By: #### U MICAO, UAX, INDIRA ####[facility] Zho[address] [facility] [place] [address] Lab Director: Mike Bill DO Leukocyte esterase Test strip Ql (U) TRACE Abnormal NEG [facility] Comment on above: Performed By: #### U MICAO, UAX, INDIRA ####[facility] [address]is[address] [place] [address] Lab Director: Mike Bill DO Nitrite,Ur Negative Normal NEG [facility] Comment on above: Performed By: #### U MICAO, UAX, INDIRA ####[facility] [address] [place] [address] lab Director: Mike Bill DO PH,Ur 6.0 Normal 5.0-8.0 [facility] Comment on above: Performed By: #### U MICAO, UAX, INDIRA ####[facility] [address] [place] [address] lab Director: Mike Bill DO Protein Ql (U) 1+ mg/dL Abnormal NEG [facility] Comment on above: Performed By: #### U MICAO, UAX, INDIRA ####[facility] [address] [place] [address] lab Director: Mike Bill DO Spec. [place],Ur 1.018 Normal 1.000-1.03 0 [facility] Comment on above: Performed By: #### U MICAO, UAX, INDIRA ####[facility] [address] [place] [address] lab Director: Mike Bill DO Urobilinogen,Ur Normal Normal 0.0-1.0 [facility] Comment on above: Performed By: #### U MICAO, UAX, INDIRA ####[facility] [address] [place] [address] lab Director: Mike Bill DO Urinalysis with Reflex to Cu ltureon 10-05-2023 Bilirubin Ql (U) Negative NEGATIVE [facility] Clarity (U) Clear Clear [facility] Color (U) Dark Yellow Abnormal Yellow [facility] Glucose Test strip (U) [Mass/Vol] Negative NEGATIVE mg/dL [facility] Hemoglobin Auto test strip Ql (U) TRACE Abnormal NEGATIVE [facility] Interpretation and review of laboratory results Abnormal [facility] Ketones (U) [Mass/Vol] TRACE Abnormal NEGAT ZULMA mg/dL [facility] Leukocyte esterase Test strip Ql (U) TRACE Abnormal NEGATIVE [facility] Nitrite Ql (U) Negative NEGATIVE [facility] pH (U) 6.0 [pH] 5.0 - 8.0 [facility] Protein (U) [Mass/Vol] 1+ Abnormal NEGAT ZULMA mg/dL [facility] Specific gravity (U) [Rel density] 1.018 1.000 - 1.030 [facility] Urobilinogen Qn (U) Normal 0.0 - 1. 0 EU/dL [facility] Urinalysis,Microon 4 Bacteria FEW Abnormal NONE [facility] Comment on above: Performed By: #### U MICAO, UAX, INDIRA ####[facility] [address] [place] [address] Lab Director: Mike Bill DO Casts HYALINE Abnormal NONE [facility] Comment on above: Result Comment: 6 TO 9 FINE GRANULAR 10 TO 20 Performed By: #### U MICAO, UAX, INDIRA ####[facility] [address] [place] [address] Lab Director: Mike Bill DO Epithelial cells LM Ql (Urine sed) 10 TO 20 Normal [facility] Comment on above: Performed By: #### U MICAO, UAX, INDIRA ####[facility] [address] [place] [address] Lab Director: Mike Bill DO Mucus Strands 1+ Normal [facility] Comment on above: Performed By: #### U MICAO, UAX, INDIRA ####[facility] [address] [facility] [place] [address] Lab Director: Mike Bill DO Urine RBC's 3 to 5 Abnormal 2 [facility] Comment on above: Performed By: #### U MICAO, UAX, INDIRA ####[facility] [address] [facility] [place] [address] lab Director: Mike Bill DO Urine WBC's 6 TO 9 Abnormal 5 [facility] Comment on above: Performed By: #### U MICAO, UAX, INDIRA ####[facility] [address]oo[address] [facility] [place] [address] lab Director: Mike Bill DO Urine Drug [...] limitations of testing or timing of collection. [facility] Comment on above: Testing for legal pu rposes should be confirmed by another method. To request confirmation of test result, please call the lab within 7 days of sample submission. [facility] XR CHEST PORTABLEon 10-05-19 24 XR [...] Derrick Zapien MD 10/05/23 Final result Normal [facility] Basic metabolic 2000 panelon 09-29-2023 Anion gap [Moles/Vol] 16 mmol/L Normal 10-20 [facility] Comment on above: Performed By: #### 2 4321-2 #### SHAQUILLE GOLDMAN ([id number]) [facility] [address] [place] [address] Calcium [Mass/Vol] 9.3 mg/dL Normal 8.6-10.3 [facility] Comment on above: Performed By: #### 2 4321-2 #### SHAQUILLE GOLDMAN ([id number]) [facility] [address] [place] [address] Chloride [Moles/Vol] 100 mmol/L Normal 98-107 [facility] Comment on above: Performed By: #### 2 4321-2 #### ANAIBJULIO GOLDMAN ([id number]) [facility] [address] [place] [address] CO2 [Moles/Vol] 29 mmol/L Normal 21-32 [facility] Comment on above: Performed By: #### 2 4321-2 #### REGULOIBJULIO GOLDMAN ([id number]) [facility] [address] [place] [address] Creatinine [Mass/Vol] 1.16 mg/dL High 0.50-1.05 [facility] Comment on above: Performed By: #### 2 4321-2 #### SHAQUILLE GOLDMAN ([id number]) [facility]) [address] [place] [address] Glomerular filtration rate/1.73 sq M.predicted 56 mL/min/1.73m*2 Low >60 [facility] Comment on above: Result Comment: Calc ulations of estimated GFR are performed using the 2020 CKD-EPI Study Refit equation without the race variable for the IDMS-Traceable creatinine methods. https://jasn.asnjournals.org/content/early//ASN.90464 41052 Performed By: #### 2 4321-2 #### SHAQUILLE GOLDMAN ([id number]) [facility] [address] [place] [address] Glucose [Mass/Vol] 83 mg/dL Normal 74-99 [facility] Comment on above: Performed By: #### 2 4321-2 #### REGULOIBELIISABELLA DE LEONMICHAEL SKYE ([id number]) [facility] [address] [place] [address] Potassium [Moles/Vol] 3.7 mmol/L Normal 3.5-5.3 [facility] Comment on above: Performed By: #### 2 4321-2 #### REGULOIBELIISABELLA DE LEONMICHAEL SKYE ([id number]) [facility] [address] [place] [address] Sodium [Moles/Vol] 141 mmol/L Normal 136-145 [facility] Comment on above: Performed By: #### 2 4321-2 #### SHAQUILLE GOLDMAN ([id number]) [facility] [address] [place] [address] Urea nitrogen [Mass/Vol] 33 mg/dL High 6-23 [facility] Comment on above: Performed By: #### 2 4321-2 #### SHAQUILLE GOLDMAN ([id number]) [facility] [address] [place] [address] Anion gap [Moles/Vol] 16 mmol/L 10 - 2 0 mmol/L [facility] Calcium [Mass/Vol] 9.3 mg/dL 8.6 - 10. 3 mg/dL [facility] Chloride [Moles/Vol] 100 mmol/L 98 - 10 7 mmol/L [facility] CO2 [Moles/Vol] 29 mmol/L 21 - 32 mmol/L [facility] Creatinine [Mass/Vol] 1.16 mg/dL High 0.50 - 1.05 mg/dL [facility] GFR/1.73 sq M.predicted among non-blacks MDRD (S/P/Bld) [Vol rate/Area] 56 mL/min/{1.73_m2} Low - PINF [facility] Comment on above: Calculations of yovanny mated GFR are performed using the 2020 CKD-EPI Study Refit equation without the race variable for the IDMS-Traceable creatinine methods. https://jasn.asnjournals.org/content/early//ASN.59015 12825 Glucose [Mass/Vol] 83 mg/dL 74 - 99 mg/dL [facility] Interpretation and review of laboratory results Abnormal [facility] Potassium [Moles/Vol] 3.7 mmol/L 3.5 - 5.3 mmol/L [facility] Sodium [Moles/Vol] 141 mmol/L 136 - 145 mmol/L [facility] Urea nitrogen [Mass/Vol] 33 mg/dL High 6 - 23 mg/dL [facility] CBC panel Auto (Bld)on 09-29 Erythrocyte distribution width (RBC) [Ratio] 23.8 % High 11.5-14.5 [facility] Comment on above: Performed By: #### 5 8410-2 #### SHAQUILLE GOLDMAN ([id number]) [facility] [address] [place] [address] Hematocrit (Bld) [Volume fraction] 35.4 % Low 36.0-46.0 [facility] Comment on above: Performed By: #### 5 8410-2 #### SHAQUILLE GOLDMAN ([id number]) [facility] [address] [place] [address] Hemoglobin (Bld) [Mass/Vol] 9.8 g/dL Low 12.0-16.0 [facility] Comment on above: Performed By: #### 5 8410-2 #### SHAQUILLE GOLDMAN ([id number]) [facility] [address] [place] [address] MCH (RBC) [Entitic mass] 17.9 pg Low 26.0-34.0 [facility] Comment on above: Performed By: #### 5 8410-2 #### SHAQUILLE GOLDMAN ([id number]) [facility] [address] [place] [address] MCHC (RBC) [Mass/Vol] 27.7 g/dL Low 32.0-36.0 [facility] Comment on above: Performed By: #### 5 8410-2 #### SHAQUILLE GOLDMAN ([id number]) [facility] [address] [place] [address] MCV (RBC) [Entitic vol] 65 fL Low 80-100 [facility] Comment on above: Performed By: #### 5 8410-2 #### SHAQUILLE GOLDMAN ([id number]) [facility] [address] [place] [address] Nucleated RBC/100 WBC (Bld) [Ratio] 0.0 /100 WBCs Normal 0.0-0.0 [facility] Comment on above: Performed By: #### 5 8410-2 #### SHAQUILLE GOLDMAN ([id number]) [facility] [address] [place] [address] Platelets (Bld) [#/Vol] 303 x10*3/uL Normal 150-450 [facility] Comment on above: Performed By: #### 5 8410-2 #### SHAQUILLE GOLDMAN ([id number]) [facility] [address] [place] [address] RBC (Bld) [#/Vol] 5.47 x10*6/uL High 4.00-5.20 [facility] Comment on above: Performed By: #### 5 8410-2 #### SHAQUILLE GOLDMAN ([id number]) [facility] [address] [place] [address] WBC (Bld) [#/Vol] 8.7 x10*3/uL Normal 4.4-11.3 [facility] Comment on above: Performed By: #### 5 8410-2 #### SHAQUILLE GOLDMAN ([id number]) [facility] [address] [place] [address] Erythrocyte distribution width (RBC) [Ratio] 23.8 % High 11.5 - 14.5 % [facility] Hematocrit (Bld) [Volume fraction] 35.4 % Low 36.0 - 46.0 % [facility] Hemoglobin (Bld) [Mass/Vol] 9.8 g/dL Low 12.0 - 16.0 g/dL [facility] Interpretation and review of laboratory results Abnormal [facility] MCH (RBC) [Entitic mass] 17.9 pg Low 26.0 - 34.0 pg [facility] MCHC (RBC) [Mass/Vol] 27.7 g/dL Low 32.0 - 36.0 g/dL [facility] MCV (RBC) [Entitic vol] 65 fL Low 80 - 100 fL [facility] Nucleated RBC/100 WBC (Bld) [Ratio] 0.0 % [facility] Platelets (Bld) [#/Vol] 303 10*3/uL [facility] RBC (Bld) [#/Vol] 5.47 10*6/uL High [facility] WBC (Bld) [#/Vol] 8.7 10*3/uL [facility] ECG 12-LEADon 09-29-2023 ECG 12-LEAD Ventricular Rate 80 Atrial Rate 79 QRS Duration 240 Q-T Interval 640 QTC Calculation(Bazett) 738 R [place] -75 T [place] 92 QRS Count 13 Q Onset 160 T Offset 480 QTC Fredericia 705 Diagnosis AV dual-paced rhythm Abnormal ECG When compared with ECG of 21-JAN-2022 17:39, No significant change was found Confirmed by Fly Sheldon ([id number]) on 09/29/2023 3:03:21 PM Normal [facility] Electrophysiology studyon [facility] Work Phone: No Panel Informationon 09-29 Extra Tube Hold for add-ons. [facility] Comment on above: Auto resulted. [facility] PT and aPTT panel Coag (PPP) on 09-29-2023 aPTT Coag (PPP) [Time] 25 s Low 27-38 Un [facility] Comment on above: Order Comment: The A PTT is no longer used for monitoring Unfractionated Heparin Therapy. For monitoring Heparin Therapy, use the Heparin Assay. Performed By: #### 3 4529-8 #### SHAQUILLE GOLDMAN ([id number]) [facility] [address] [place] [address] INR Coag (PPP) [Relative time] 1.0 Normal 0.9-1.1 [facility] Comment on above: Order Comment: The A PTT is no longer used for monitoring Unfractionated Heparin Therapy. For monitoring Heparin Therapy, use the Heparin Assay. Performed By: #### 3 4529-8 #### REGULOIBJULIO HALEY CHEUNG ([id number]) [facility] [address] [place] [address] PT Coag (PPP) [Time] 11.1 s Normal 9.8-12.8 [facility] Comment on above: Order Comment: The A PTT is no longer used for monitoring Unfractionated Heparin Therapy. For monitoring Heparin Therapy, use the Heparin Assay. Performed By: #### 3 4529-8 #### SHAQUILLE HALEY WINTER SKYE ([id number]) [facility] [address] [place] [address] aPTT Coag (PPP) [Time] 25 s Low [facility] INR Coag (PPP) [Relative time] 1.0 {INR} 0.9 - 1.1 [facility] Interpretation and review of laboratory results Abnormal [facility] PT Coag (PPP) [Time] 11.1 s [facility] The APTT is no longe r used for monitoring Unfractionated Heparin Therapy. For monitoring Heparin Therapy, use the Heparin Assay. [facility] Cardiac Device Check - In Cl inicOrdered By: Margareth Nunez on 09-02-2023 [facility] Work Phone: Cardiac Device Check - In Cl inicon 09-02-2023 Radiology Study observation (narrative) [facility] Work Phone: Franck 08-03-2023 [facility] Telephone ([facility]) ----- ESSENCE VINCENT ([id number]) 1970 F Date Time Provider Department 08/03/23 DAVID OSEI [facility] During your visit today, we recorded the [...] Osei MD Procedure Requested: ICD change CPT: 99049 Multi Lead Date of Last HANDP? N/A Indications / Dx for Procedure: VT Procedure Time Frame: 1 month Estimated length of case: 1 HOUR Device Company: [employer] Patient: No Type of Bed: [...] voicemail that she needs to return call [facility] or the date would no longer be [...] for Visit: Schedule Surgery [1330] Cmt: EPS- PATTERNMAKER METAL BENCH-D Change Out Prescriptions as of 08/27/2023 - [...] this patient by: PATIENT Jameel Mcmahon, PharmD [facility] -01-08 Problem List As Of Date 08/03/2023 [...] [I34.0] 07/16/2012 Pulmonary hypertension [I27.20] Dual chamber PATTERNMAKER METAL BENCH-D [Z95.810] 07/23/2020 Primary hypertension [I10] Nicotine use disorder [F17.200] Exercise-induced asthma [J45.990] Anemia [D64.9] 10/29/2011 07/23/2020 H/o GERD [K21.9] 07/23/2020 Migraines [G43.909] H/o Depression/Anxiety/Sleep disturbance [F32.* Preop testing [Z01.818] 07/08/2012 07/23/2020 SUMMARY (more content not included)... Normal [facility] 07-28-2023 CNPN Telephone (BREANAMN) ----- ESSENCE VINCENT ([id number]) 1970 F Date Time Provider Department 07/28/23 [...] [I34.0] 07/16/2012 Pulmonary hypertension [I27.20] Dual chamber PATTERNMAKER METAL BENCH-D [Z95.810] 07/23/2020 Primary hypertension [I10] Nicotine use disorder [F17.200] Exercise-induced asthma [J45.990] Anemia [D64.9] 10/29/2011 07/23/2020 H/o GERD [K21.9] 07/23/2020 Migraines [G43.909] H/o Depression/Anxiety/Sleep disturbance [F32.* Preop testing [Z01.818] 07/08/2012 07/23/2020 SUMMARY [V999.95] 07/11/2012 07/23/2020 Pulmonary hypertension, moderate to severe (HCC*2012 Other acute postoperative pain [G89.18] 07/13/2012 07/16/2012 Pulmonary insuff [[id number]] 07/13/2012 07/23/2020 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 [...] Status:Closed by MARIA GLOVER on 07/28/23 Normal [facility] ICD REMOTE CHECKon 3 AV Delay Adaptive Paced Minimum (ms) 350 ms [facility] AV Delay Adaptive Rate Maximum (bpm) 90 {beats}/min [facility] AV Delay Adaptive Rate Minimum (bpm) 75 {beats}/min [facility] AV Delay Adaptive Sensed Minimum (ms) 250 ms [facility] AV Delay Adaptive Status ENABLED [facility] AV Delay Paced (ms) 100 ms [facility] AV Delay Sensed (ms) 70 ms [facility] Battery Voltage 2.72 V [facility] Scott RA Pacing Amplitude (volts) 2 V [facility] Scott RA Pacing Polarity BI [facility] Scott RA Pacing Pulse Width (ms) 0.4 ms [facility] Scott RA Sensing Amplitude (mvolts) 0.3 mV [facility] Scott RA Sensing Blanking Period (ms) 150 ms [facility] Scott RA Sensing Polarity BI [facility] Scott RA Sensing Refractory Period (ms) 250 ms [facility] Scott RV Pacing Amplitude (volts) 2.25 V [facility] Scott RV Pacing Polarity BI [facility] Csott RV Pacing Pulse Width (ms) 0.4 ms [facility] Scott RV Sensing Amplitude (mvolts) 0.3 mV [facility] Scott RV Sensing Blanking Period (ms) 200 ms [facility] Scott RV Sensing Polarity BI [facility] Detection Configuration (Vent) 2 - Zone [facility] FastVT_Detection Interval 450 ms [facility] FastVT_Therapy Configuration 2 ATP(s) + 0 Shock(s) [facility] ICD AFIB DetectionStatus DISABLED [facility] ICD ATAF DetectionInterval ms 450 ms [facility] ICD ATAF DetectionStatus ENABLED [facility] ICD ATAF TherapyConfiguration 2 ATP(s) + 0 Shock(s) [facility] ICD FastVT DetectionStatus ENABLED [facility] ICD-ADLRATE_BPM 85 {beats}/min [facility] ICD-AMS EPISODES 133 {beats}/min [facility] ICD-ATP Episodes (Vent) 0 [facility] ICD-ATRIALFIBRILLATION 535 Cl [facility] ICD-ATRIALTACHYCARDIA 535 [facility] ICD-ATRIALTACHYCARDIA 18 [facility] ICD-ATRIALTACHYCARDIA 9 [facility] ICD-Counters Cleared Date 09/23/2016 [facility] ICD-Device Mfg MDT [facility] ICD-Fast Ventricular Tachycardia 9 [facility] ICD-LEADIMPEDANCEATRIA L 342 ohm [facility] ICD-Percent Pacing (Atrial) 76.76 % [facility] ICD-Percent Pacing (Vent) 95.69 % [facility] ICD-PMT Intervention ENABLED [facility] ICD-PVC Intervention ENABLED [facility] ICD-Rate Modulation Acceleration Reaction 30 s [facility] ICD-Rate Modulation Deceleration Exercise [facility] ICD-Rate Modulation Cache 3 [facility] ICD-Rate Modulation Threshold MediumHigh [facility] ICD-Shocks Aborted (Vent) 0 [facility] [id number] 0 [facility] ICD-SHOCKSABORTED [address] [facility] ICD-SHOCKSDELIVEREDVEN TRICULAR 0 [facility] ICD-Ventricular Fibrillation 0 [facility] Implant Date 07/03/2005 [facility] Implant Date 11/30/2002 [facility] Lead Impedance (LV) 4047 ohm [facility] Lead Impedance (RV) 779 ohm [facility] Lead Impedance High Voltage 59 ohm [facility] Lead1 Mfg MDT [facility] Lead2 Mfg MDT [facility] Lead3 Mfg GDT [facility] Location LV [facility] Location RA [facility] Location RV [facility] Lower Rate (bpm) 80 {beats}/min [facility] LV PACING % 0 % [facility] Max Sensor Rate (bpm) 90 {beats}/min [facility] MDT_PROG_TACHY_ZONE_DE TECTIONS_STATUS ENABLED [facility] Model [id number] Viva XT PATTERNMAKER METAL BENCH-D [facility] Model 4196 Attain Ability MRI SureScan [facility] Model 5076 CapSureFix Novus [facility] Model 0144 [employer] [facility] Pacing Mode DDDR [facility] Serial Number [id number] [facility] Serial Number [id number] [facility] Serial Number [id number] [facility] Serial Number [id number] [facility] Test Charge Energy 18 J [facility] Test [facility] 5.[facility] Status (Vent) Enabled [facility] Thresh RA Capture Amplitude (volts) 0.625 V [facility] Thresh RA Capture Duration (ms) 0.4 ms [facility] Thresh RA Sensing Amplitude (mvolts) 1.625 mV [facility] Thresh RV Capture Amplitude (VOLTS) 1 V [facility] Thresh RV Capture Duration (MS) 0.4 ms [facility] Thresh RV Sensing Amplitude (MVOLTS) 11.625 mV [facility] Tracking Rate (bpm) 90 {beats}/min [facility] VF Zone Detection Interval 450 ms [facility] VF Zone Therapy Configuration 2 ATP(s) + 0 Shock(s) [facility] No Panel Informationon 07-28 BLANK _ [facility] ICD-ATRIALTACHYCARDIA 0 [facility] ICD-Fast Ventricular Tachycardia 0 [facility] Implant Date 09/23/2016 [facility] ED Note-Physicianon 07-05-20 23 ED Note-Physician [id number] [facility] ED Note-Physician [id number] [facility] ED Note-Physician [id number] [facility] Physician Referralon 023 Physician Referral [id number]:12 7 [facility] ICD REMOTE CHECKon 3 AV Delay Adaptive Paced Minimum (ms) 350 ms [facility] AV Delay Adaptive Rate Maximum (bpm) 90 {beats}/min [facility] AV Delay Adaptive Rate Minimum (bpm) 75 {beats}/min [facility] AV Delay Adaptive Sensed Minimum (ms) 250 ms [facility] AV Delay Adaptive Status ENABLED [facility] AV Delay Paced (ms) 100 ms [facility] AV Delay Sensed (ms) 70 ms [facility] Battery Voltage 2.77 V [facility] Scott RA Pacing Amplitude (volts) 2 V [facility] Scott RA Pacing Polarity BI [facility] Scott RA Pacing Pulse Width (ms) 0.4 ms [facility] Scott RA Sensing Amplitude (mvolts) 0.3 mV [facility] Scott RA Sensing Blanking Period (ms) 150 ms [facility] Scott RA Sensing Polarity BI [facility] Scott RA Sensing Refractory Period (ms) 250 ms [facility] Scott RV Pacing Amplitude (volts) 2.5 V [facility] Scott RV Pacing Polarity BI [facility] Scott RV Pacing Pulse Width (ms) 0.4 ms [facility] Scott RV Sensing Amplitude (mvolts) 0.3 mV [facility] Scott RV Sensing Blanking Period (ms) 200 ms [facility] Scott RV Sensing Polarity BI [facility] Detection Configuration (Vent) 2 - Zone [facility] FastVT_Detection Interval 450 ms [facility] FastVT_Therapy Configuration 2 ATP(s) + 0 Shock(s) [facility] ICD AFIB DetectionStatus DISABLED [facility] ICD ATAF DetectionInterval ms 450 ms [facility] ICD ATAF DetectionStatus ENABLED [facility] ICD ATAF TherapyConfiguration 2 ATP(s) + 0 Shock(s) [facility] ICD FastVT DetectionStatus ENABLED [facility] ICD-ADLRATE_BPM 85 {beats}/min [facility] ICD-AMS EPISODES 133 {beats}/min [facility] ICD-ATP Episodes (Vent) 0 [facility] ICD-ATRIALFIBRILLATION 10 Cl [facility] ICD-ATRIALTACHYCARDIA 10 [facility] ICD-Counters Cleared Date 09/23/2016 [facility] ICD-Device Mfg MDT [facility] ICD-LEADIMPEDANCEATRIA L 361 ohm [facility] ICD-Percent Pacing (Atrial) 50.68 % [facility] ICD-Percent Pacing (Vent) 87.63 % [facility] ICD-PMT Intervention ENABLED [facility] ICD-PVC Intervention ENABLED [facility] ICD-Rate Modulation Acceleration Reaction 30 s [facility] ICD-Rate Modulation Deceleration Exercise [facility] ICD-Rate Modulation Cache 3 [facility] ICD-Rate Modulation Threshold MediumHigh [facility] ICD-Shocks Aborted (Vent) 0 [facility] [id number] 0 [facility] ICD-SHOCKSABORTED [address] [facility] ICD-SHOCKSDELIVEREDVEN TRICULAR 0 [facility] ICD-Ventricular Fibrillation 0 [facility] Implant Date 07/03/2005 [facility] Implant Date 11/30/2002 [facility] Lead Impedance (LV) 4047 ohm [facility] Lead Impedance (RV) 779 ohm [facility] Lead Impedance High Voltage 61 ohm [facility] Lead1 Mfg MDT [facility] Lead2 Mfg MDT [facility] Lead3 Mfg GDT [facility] Location LV [facility] Location RA [facility] Location RV [facility] Lower Rate (bpm) 80 {beats}/min [facility] LV PACING % 0 % [facility] Max Sensor Rate (bpm) 90 {beats}/min [facility] MDT_PROG_TACHY_ZONE_DE TECTIONS_STATUS ENABLED [facility] Model [id number] Viva XT PATTERNMAKER METAL BENCH-D [facility] Model 4196 Attain Ability MRI SureScan [facility] Model 5076 CapSureFix Novus [facility] Model 0144 [employer] [facility] Pacing Mode DDDR [facility] Serial Number [id number] [facility] Serial Number [id number] [facility] Serial Number [id number] [facility] Serial Number [id number] [facility] Test Charge Energy 18 J [facility] Test Charge Time 5.145 [facility] Therapy Status (Vent) Enabled [facility] Thresh RA Capture Amplitude (volts) 0.625 V [facility] Thresh RA Capture Duration (ms) 0.4 ms [facility] Thresh RA Sensing Amplitude (mvolts) 2.875 mV [facility] Thresh RV Capture Amplitude (VOLTS) 1 V [facility] Thresh RV Capture Duration (MS) 0.4 ms [facility] Thresh RV Sensing Amplitude (MVOLTS) 6.875 mV [facility] Tracking Rate (bpm) 90 {beats}/min [facility] VF Zone Detection Interval 450 ms [facility] VF Zone Therapy Configuration 2 ATP(s) + 0 Shock(s) [facility] No Panel Informationon 05-06 BLANK _ [facility] ICD-ATRIALTACHYCARDIA 0 [facility] ICD-Fast Ventricular Tachycardia 0 [facility] Implant Date 09/23/2016 [facility] ICD REMOTE CHECKon 08-24-202 3 AV Delay Adaptive Paced Minimum (ms) 350 ms [facility] AV Delay Adaptive Rate Maximum (bpm) 90 {beats}/min [facility] AV Delay Adaptive Rate Minimum (bpm) 75 {beats}/min [facility] AV Delay Adaptive Sensed Minimum (ms) 250 ms [facility] AV Delay Adaptive Status ENABLED [facility] AV Delay Paced (ms) 100 ms [facility] AV Delay Sensed (ms) 70 ms [facility] Battery Voltage 2.77 V [facility] Scott RA Pacing Amplitude (volts) 2 V [facility] Scott RA Pacing Polarity BI [facility] Scott RA Pacing Pulse Width (ms) 0.4 ms [facility] Scott RA Sensing Amplitude (mvolts) 0.3 mV [facility] Scott RA Sensing Blanking Period (ms) 150 ms [facility] Scott RA Sensing Polarity BI [facility] Scott RA Sensing Refractory Period (ms) 250 ms [facility] Scott RV Pacing Amplitude (volts) 2.75 V [facility] Scott RV Pacing Polarity BI [facility] Scott RV Pacing Pulse Width (ms) 0.4 ms [facility] Scott RV Sensing Amplitude (mvolts) 0.3 mV [facility] Scott RV Sensing Blanking Period (ms) 200 ms [facility] Scott RV Sensing Polarity BI [facility] Detection Configuration (Vent) 2 - Zone [facility] FastVT_Detection Interval 450 ms [facility] FastVT_Therapy Configuration 2 ATP(s) + 0 Shock(s) [facility] ICD AFIB DetectionStatus DISABLED [facility] ICD ATAF DetectionInterval ms 450 ms [facility] ICD ATAF DetectionStatus ENABLED [facility] ICD ATAF TherapyConfiguration 2 ATP(s) + 0 Shock(s) [facility] ICD FastVT DetectionStatus ENABLED [facility] ICD-ADLRATE_BPM 85 {beats}/min [facility] ICD-AMS EPISODES 133 {beats}/min [facility] ICD-ATP Episodes (Vent) 0 [facility] ICD-ATRIALFIBRILLATION 4 Cl [facility] ICD-ATRIALTACHYCARDIA 4 [facility] ICD-Counters Cleared Date 09/23/2016 [facility] ICD-Device Mfg MDT [facility] ICD-LEADIMPEDANCEATRIA L 342 ohm [facility] ICD-Percent Pacing (Atrial) 46.68 % [facility] ICD-Percent Pacing (Vent) 90.31 % [facility] ICD-PMT Intervention ENABLED [facility] ICD-PVC Intervention ENABLED [facility] ICD-Rate Modulation Acceleration Reaction 30 s [facility] ICD-Rate Modulation Deceleration Exercise [facility] ICD-Rate Modulation Cache 3 [facility] ICD-Rate Modulation Threshold MediumHigh [facility] ICD-Shocks Aborted (Vent) 0 [facility] [id number] 0 [facility] ICD-SHOCKSABORTED [address] [facility] ICD-SHOCKSDELIVEREDVEN TRICULAR 0 [facility] ICD-Ventricular Fibrillation 0 [facility] Implant Date 07/03/2005 [facility] Implant Date 11/30/2002 [facility] Lead Impedance (LV) 4047 ohm [facility] Lead Impedance (RV) 760 ohm [facility] Lead Impedance High Voltage 64 ohm [facility] Lead1 Mfg MDT [facility] Lead2 Mfg MDT [facility] Lead3 Mfg GDT [facility] Location LV [facility] Location RA [facility] Location RV [facility] Lower Rate (bpm) 80 {beats}/min [facility] LV PACING % 0 % [facility] Max Sensor Rate (bpm) 90 {beats}/min [facility] MDT_PROG_TACHY_ZONE_DE TECTIONS_STATUS ENABLED [facility] Model [id number] Viva XT PATTERNMAKER METAL BENCH-D [facility] Model 4196 Attain Ability MRI SureScan [facility] Model 5076 CapSureFix Novus [facility] Model 0144 [employer] [facility] Pacing Mode DDDR [facility] Serial Number [id number] [facility] Serial Number [id number] [facility] Serial Number [id number] [facility] Serial Number [id number] [facility] Test Charge Energy 18 J [facility] Test Charge Time 5.145 [facility] Therapy Status (Vent) Enabled [facility] Thresh RA Capture Amplitude (volts) 0.625 V [facility] Thresh RA Capture Duration (ms) 0.4 ms [facility] Thresh RA Sensing Amplitude (mvolts) 2.5 mV [facility] Thresh RV Capture Amplitude (VOLTS) 1.375 V [facility] Thresh RV Capture Duration (MS) 0.4 ms [facility] Thresh RV Sensing Amplitude (MVOLTS) 7.5 mV [facility] Tracking Rate (bpm) 90 {beats}/min [facility] VF Zone Detection Interval 450 ms [facility] VF Zone Therapy Configuration 2 ATP(s) + 0 Shock(s) [facility] No Panel Informationon 04-22 BLANK _ [facility] ICD-ATRIALTACHYCARDIA 0 [facility] ICD-Fast Ventricular Tachycardia 0 [facility] Implant Date 09/23/2016 [facility] ICD REMOTE CHECKon 3 AV Delay Adaptive Paced Minimum (ms) 350 ms [facility] AV Delay Adaptive Rate Maximum (bpm) 90 {beats}/min [facility] AV Delay Adaptive Rate Minimum (bpm) 75 {beats}/min [facility] AV Delay Adaptive Sensed Minimum (ms) 250 ms [facility] AV Delay Adaptive Status ENABLED [facility] AV Delay Paced (ms) 100 ms [facility] AV Delay Sensed (ms) 70 ms [facility] Battery Voltage 2.78 V [facility] Scott RA Pacing Amplitude (volts) 2 V [facility] Scott RA Pacing Polarity BI [facility] Scott RA Pacing Pulse Width (ms) 0.4 ms [facility] Scott RA Sensing Amplitude (mvolts) 0.3 mV [facility] Scott RA Sensing Blanking Period (ms) 150 ms [facility] Scott RA Sensing Polarity BI [facility] Scott RA Sensing Refractory Period (ms) 250 ms [facility] Scott RV Pacing Amplitude (volts) 3 V [facility] Scott RV Pacing Polarity BI [facility] Scott RV Pacing Pulse Width (ms) 0.4 ms [facility] Scott RV Sensing Amplitude (mvolts) 0.3 mV [facility] Scott RV Sensing Blanking Period (ms) 200 ms [facility] Scott RV Sensing Polarity BI [facility] Detection Configuration (Vent) 2 - Zone [facility] FastVT_Detection Interval 450 ms [facility] FastVT_Therapy Configuration 2 ATP(s) + 0 Shock(s) [facility] ICD AFIB DetectionStatus DISABLED [facility] ICD ATAF DetectionInterval ms 450 ms [facility] ICD ATAF DetectionStatus ENABLED [facility] ICD ATAF TherapyConfiguration 2 ATP(s) + 0 Shock(s) [facility] ICD FastVT DetectionStatus ENABLED [facility] ICD-ADLRATE_BPM 85 {beats}/min [facility] ICD-AMS EPISODES 133 {beats}/min [facility] ICD-ATP Episodes (Vent) 0 [facility] ICD-ATRIALFIBRILLATION 0 Cl [facility] ICD-Counters Cleared Date 09/23/2016 [facility] ICD-Device Mfg MDT [facility] ICD-LEADIMPEDANCEATRIA L 342 ohm [facility] ICD-Percent Pacing (Atrial) 44.86 % [facility] ICD-Percent Pacing (Vent) 83.22 % [facility] ICD-PMT Intervention ENABLED [facility] ICD-PVC Intervention ENABLED [facility] ICD-Rate Modulation Acceleration Reaction 30 s [facility] ICD-Rate Modulation Deceleration Exercise [facility] ICD-Rate Modulation Cache 3 [facility] ICD-Rate Modulation Threshold MediumHigh [facility] ICD-Shocks Aborted (Vent) 0 [facility] [id number] 0 [facility] ICD-SHOCKSABORTED [address] [facility] ICD-SHOCKSDELIVEREDVEN TRICULAR 0 [facility] ICD-Ventricular Fibrillation 0 [facility] Implant Date 07/03/2005 [facility] Implant Date 11/30/2002 [facility] Lead Impedance (LV) 4047 ohm [facility] Lead Impedance (RV) 779 ohm [facility] Lead Impedance High Voltage 61 ohm [facility] Lead1 Mfg MDT [facility] Lead2 Mfg MDT [facility] Lead3 Mfg GDT [facility] Location LV [facility] Location RA [facility] Location RV [facility] Lower Rate (bpm) 80 {beats}/min [facility] LV PACING % 0 % [facility] Max Sensor Rate (bpm) 90 {beats}/min [facility] MDT_PROG_TACHY_ZONE_DE TECTIONS_STATUS ENABLED [facility] Model [id number] Viva XT PATTERNMAKER METAL BENCH-D [facility] Model 4196 Attain Ability MRI SureScan [facility] Model 5076 CapSureFix Novus [facility] Model 0144 [employer] [facility] Pacing Mode DDDR [facility] Serial Number [id number] [facility] Serial Number [id number] [facility] Serial Number [id number] [facility] Serial Number [id number] [facility] Test Charge Energy 18 J [facility] Test Charge Time 5.145 [facility] Therapy Status (Vent) Enabled [facility] Thresh RA Capture Amplitude (volts) 0.625 V [facility] Thresh RA Capture Duration (ms) 0.4 ms [facility] Thresh RA Sensing Amplitude (mvolts) 2 mV [facility] Thresh RV Capture Amplitude (VOLTS) 1.125 V [facility] Thresh RV Capture Duration (MS) 0.4 ms [facility] Thresh RV Sensing Amplitude (MVOLTS) 9.25 mV [facility] Tracking Rate (bpm) 90 {beats}/min [facility] VF Zone Detection Interval 450 ms [facility] VF Zone Therapy Configuration 2 ATP(s) + 0 Shock(s) [facility] AV Delay Adaptive Paced Minimum (ms) 350 ms [facility] AV Delay Adaptive Rate Maximum (bpm) 90 {beats}/min [facility] AV Delay Adaptive Rate Minimum (bpm) 75 {beats}/min [facility] AV Delay Adaptive Sensed Minimum (ms) 250 ms [facility] AV Delay Adaptive Status ENABLED [facility] AV Delay Paced (ms) 100 ms [facility] AV Delay Sensed (ms) 70 ms [facility] Battery Voltage 2.78 V [facility] Scott RA Pacing Amplitude (volts) 2 V [facility] Scott RA Pacing Polarity BI [facility] Scott RA Pacing Pulse Width (ms) 0.4 ms [facility] Scott RA Sensing Amplitude (mvolts) 0.3 mV [facility] Scott RA Sensing Blanking Period (ms) 150 ms [facility] Scott RA Sensing Polarity BI [facility] Scott RA Sensing Refractory Period (ms) 250 ms [facility] Scott RV Pacing Amplitude (volts) 3 V [facility] Scott RV Pacing Polarity BI [facility] Scott RV Pacing Pulse Width (ms) 0.4 ms [facility] Scott RV Sensing Amplitude (mvolts) 0.3 mV [facility] Scott RV Sensing Blanking Period (ms) 200 ms [facility] Scott RV Sensing Polarity BI [facility] Detection Configuration (Vent) 2 - Zone [facility] FastVT_Detection Interval 450 ms [facility] FastVT_Therapy Configuration 2 ATP(s) + 0 Shock(s) [facility] ICD AFIB DetectionStatus DISABLED [facility] ICD ATAF DetectionInterval ms 450 ms [facility] ICD ATAF DetectionStatus ENABLED [facility] ICD ATAF TherapyConfiguration 2 ATP(s) + 0 Shock(s) [facility] ICD FastVT DetectionStatus ENABLED [facility] ICD-ADLRATE_BPM 85 {beats}/min [facility] ICD-AMS EPISODES 133 {beats}/min [facility] ICD-ATP Episodes (Vent) 0 [facility] ICD-ATRIALFIBRILLATION 0 Cl [facility] ICD-Counters Cleared Date 09/23/2016 [facility] ICD-Device Mfg MDT [facility] ICD-LEADIMPEDANCEATRIA L 342 ohm [facility] ICD-Percent Pacing (Atrial) 80.04 % [facility] ICD-Percent Pacing (Vent) 89.35 % [facility] ICD-PMT Intervention ENABLED [facility] ICD-PVC Intervention ENABLED [facility] ICD-Rate Modulation Acceleration Reaction 30 s [facility] ICD-Rate Modulation Deceleration Exercise [facility] ICD-Rate Modulation Cache 3 [facility] ICD-Rate Modulation Threshold MediumHigh [facility] ICD-Shocks Aborted (Vent) 0 [facility] [id number] 0 [facility] ICD-SHOCKSABORTED [address] [facility] ICD-SHOCKSDELIVEREDVEN TRICULAR 0 [facility] ICD-Ventricular Fibrillation 0 [facility] Implant Date 07/03/2005 [facility] Implant Date 11/30/2002 [facility] Lead Impedance (LV) 4047 ohm [facility] Lead Impedance (RV) 760 ohm [facility] Lead Impedance High Voltage 63 ohm [facility] Lead1 Mfg MDT [facility] Lead2 Mfg MDT [facility] Lead3 Mfg GDT [facility] Location LV [facility] Location RA [facility] Location RV [facility] Lower Rate (bpm) 80 {beats}/min [facility] LV PACING % 0 % [facility] Max Sensor Rate (bpm) 90 {beats}/min [facility] MDT_PROG_TACHY_ZONE_DE TECTIONS_STATUS ENABLED [facility] Model [id number] Viva XT PATTERNMAKER METAL BENCH-D [facility] Model 4196 Attain Ability MRI SureScan [facility] Model 5076 CapSureFix Novus [facility] Model 0144 [employer] [facility] Pacing Mode DDDR [facility] Serial Number [id number] [facility] Serial Number [id number] [facility] Serial Number [id number] [facility] Serial Number [id number] [facility] Test Charge Energy 18 J [facility] Test Charge Time 5.145 [facility] Therapy Status (Vent) Enabled [facility] Thresh RA Capture Amplitude (volts) 0.625 V [facility] Thresh RA Capture Duration (ms) 0.4 ms [facility] Thresh RA Sensing Amplitude (mvolts) 2.375 mV [facility] Thresh RV Capture Amplitude (VOLTS) 1.125 V [facility] Thresh RV Capture Duration (MS) 0.4 ms [facility] Thresh RV Sensing Amplitude (MVOLTS) 8.75 mV [facility] Tracking Rate (bpm) 90 {beats}/min [facility] VF Zone Detection Interval 450 ms [facility] VF Zone Therapy Configuration 2 ATP(s) + 0 Shock(s) [facility] No Panel Informationon 04-09 BLANK _ [facility] ICD-ATRIALTACHYCARDIA 0 [facility] ICD-Fast Ventricular Tachycardia 0 [facility] Implant Date 09/23/2016 [facility] BLANK _ [facility] ICD-ATRIALTACHYCARDIA 0 [facility] ICD-Fast Ventricular Tachycardia 0 [facility] Implant Date 09/23/2016 [facility] ICD REMOTE CHECKon 3 AV Delay Adaptive Paced Minimum (ms) 350 ms [facility] AV Delay Adaptive Rate Maximum (bpm) 90 {beats}/min [facility] AV Delay Adaptive Rate Minimum (bpm) 75 {beats}/min [facility] AV Delay Adaptive Sensed Minimum (ms) 250 ms [facility] AV Delay Adaptive Status ENABLED [facility] AV Delay Paced (ms) 100 ms [facility] AV Delay Sensed (ms) 70 ms [facility] Battery Voltage 2.79 V [facility] Scott RA Pacing Amplitude (volts) 2 V [facility] Scott RA Pacing Polarity BI [facility] Scott RA Pacing Pulse Width (ms) 0.4 ms [facility] Scott RA Sensing Amplitude (mvolts) 0.3 mV [facility] Scott RA Sensing Blanking Period (ms) 150 ms [facility] Scott RA Sensing Polarity BI [facility] Scott RA Sensing Refractory Period (ms) 250 ms [facility] Scott RV Pacing Amplitude (volts) 3 V [facility] Scott RV Pacing Polarity BI [facility] Scott RV Pacing Pulse Width (ms) 0.4 ms [facility] Scott RV Sensing Amplitude (mvolts) 0.3 mV [facility] Scott RV Sensing Blanking Period (ms) 200 ms [facility] Scott RV Sensing Polarity BI [facility] Detection Configuration (Vent) 2 - Zone [facility] FastVT_Detection Interval 450 ms [facility] FastVT_Therapy Configuration 2 ATP(s) + 0 Shock(s) [facility] ICD AFIB DetectionStatus DISABLED [facility] ICD ATAF DetectionInterval ms 450 ms [facility] ICD ATAF DetectionStatus ENABLED [facility] ICD ATAF TherapyConfiguration 2 ATP(s) + 0 Shock(s) [facility] ICD FastVT DetectionStatus ENABLED [facility] ICD-ADLRATE_BPM 85 {beats}/min [facility] ICD-AMS EPISODES 133 {beats}/min [facility] ICD-ATP Episodes (Vent) 0 [facility] ICD-ATRIALFIBRILLATION 0 Cl [facility] ICD-Counters Cleared Date 09/23/2016 [facility] ICD-Device Sri GROSS [facility] ICD-LEADIMPEDANCEATRIA L 342 ohm [facility] ICD-Percent Pacing (Atrial) 81.31 % [facility] ICD-Percent Pacing (Vent) 99.41 % [facility] ICD-PMT Intervention ENABLED [facility] ICD-PVC Intervention ENABLED [facility] ICD-Rate Modulation Acceleration Reaction 30 s [facility] ICD-Rate Modulation Deceleration Exercise [facility] ICD-Rate Modulation Cache 3 [facility] ICD-Rate Modulation Threshold MediumHigh [facility] ICD-Shocks Aborted (Vent) 0 [facility] [id number] 0 [facility] ICD-SHOCKSABORTED [address] [facility] ICD-SHOCKSDELIVEREDVEN TRICULAR 0 [facility] ICD-Ventricular Fibrillation 0 [facility] Implant Date 07/03/2005 [facility] Implant Date 11/30/2002 [facility] Lead Impedance (LV) 4047 ohm [facility] Lead Impedance (RV) 722 ohm [facility] Lead Impedance High Voltage 61 ohm [facility] Lead1 Mfg MDT [facility] Lead2 Mfg MDT [facility] Lead3 Mfg GDT [facility] Location LV [facility] Location RA [facility] Location RV [facility] Lower Rate (bpm) 80 {beats}/min [facility] LV PACING % 0 % [facility] Max Sensor Rate (bpm) 90 {beats}/min [facility] RENATO_PROG_TACHY_ZONE_DE TECTIONS_STATUS ENABLED [facility] Model [id number] Viva XT PATTERNMAKER METAL BENCH-D [facility] Model 4196 Attain Ability MRI SureScan [facility] Model 5076 CapSureFix Novus [facility] Model 0144 [employer] Rx [facility] Pacing Mode DDDR [facility] Serial Number [id number] [facility] Serial Number [id number] [facility] Serial Number [id number] [facility] Serial Number [id number] [facility] Test Charge Energy 18 J [facility] Test Charge Time 5.145 [facility] Therapy Status (Vent) Enabled [facility] Thresh RA Capture Amplitude (volts) 0.625 V [facility] Thresh RA Capture Duration (ms) 0.4 ms [facility] Thresh RA Sensing Amplitude (mvolts) 3 mV [facility] Thresh RV Capture Amplitude (VOLTS) 1.25 V [facility] Thresh RV Capture Duration (MS) 0.4 ms [facility] Thresh RV Sensing Amplitude (MVOLTS) 8.75 mV [facility] Tracking Rate (bpm) 90 {beats}/min [facility] VF Zone Detection Interval 450 ms [facility] VF Zone Therapy Configuration 2 ATP(s) + 0 Shock(s) [facility] AV Delay Adaptive Paced Minimum (ms) 350 ms [facility] AV Delay Adaptive Rate Maximum (bpm) 90 {beats}/min [facility] AV Delay Adaptive Rate Minimum (bpm) 75 {beats}/min [facility] AV Delay Adaptive Sensed Minimum (ms) 250 ms [facility] AV Delay Adaptive Status ENABLED [facility] AV Delay Paced (ms) 100 ms [facility] AV Delay Sensed (ms) 70 ms [facility] Battery Voltage 2.79 V [facility] Scott RA Pacing Amplitude (volts) 2 V [facility] Scott RA Pacing Polarity BI [facility] Scott RA Pacing Pulse Width (ms) 0.4 ms [facility] Scott RA Sensing Amplitude (mvolts) 0.3 mV [facility] Scott RA Sensing Blanking Period (ms) 150 ms [facility] Scott RA Sensing Polarity BI [facility] Scott RA Sensing Refractory Period (ms) 250 ms [facility] Scott RV Pacing Amplitude (volts) 2.75 V [facility] Scott RV Pacing Polarity BI [facility] Scott RV Pacing Pulse Width (ms) 0.4 ms [facility] Scott RV Sensing Amplitude (mvolts) 0.3 mV [facility] Scott RV Sensing Blanking Period (ms) 200 ms [facility] Scott RV Sensing Polarity BI [facility] Detection Configuration (Vent) 2 - Zone [facility] FastVT_Detection Interval 450 ms [facility] FastVT_Therapy Configuration 2 ATP(s) + 0 Shock(s) [facility] ICD AFIB DetectionStatus DISABLED [facility] ICD ATAF DetectionInterval ms 450 ms [facility] ICD ATAF DetectionStatus ENABLED [facility] ICD ATAF TherapyConfiguration 2 ATP(s) + 0 Shock(s) [facility] ICD FastVT DetectionStatus ENABLED [facility] ICD-ADLRATE_BPM 85 {beats}/min [facility] ICD-AMS EPISODES 133 {beats}/min [facility] ICD-ATP Episodes (Vent) 0 [facility] ICD-ATRIALFIBRILLATION 0 Cl [facility] ICD-Counters Cleared Date 09/23/2016 [facility] ICD-Device Sri CLAYT [facility] ICD-LEADIMPEDANCEATRIA L 342 ohm [facility] ICD-Percent Pacing (Atrial) 99.2 % [facility] ICD-Percent Pacing (Vent) 99.87 % [facility] ICD-PMT Intervention ENABLED [facility] ICD-PVC Intervention ENABLED [facility] ICD-Rate Modulation Acceleration Reaction 30 s [facility] ICD-Rate Modulation Deceleration Exercise [facility] ICD-Rate Modulation Cache 3 [facility] ICD-Rate Modulation Threshold MediumHigh [facility] ICD-Shocks Aborted (Vent) 0 [facility] [id number] 0 [facility] ICD-SHOCKSABORTED [address] [facility] ICD-SHOCKSDELIVEREDVEN TRICULAR 0 [facility] ICD-Ventricular Fibrillation 0 [facility] Implant Date 07/03/2005 [facility] Implant Date 11/30/2002 [facility] Lead Impedance (LV) 4047 ohm [facility] Lead Impedance (RV) 722 ohm [facility] Lead Impedance High Voltage 62 ohm [facility] Lead1 Emilyg MDT [facility] Lead2 Emilyg MDT [facility] Lead3 Mfg GDT [facility] Location LV [facility] Location RA [facility] Location RV [facility] Lower Rate (bpm) 80 {beats}/min [facility] LV PACING % 0 % [facility] Max Sensor Rate (bpm) 90 {beats}/min [facility] MDT_PROG_TACHY_ZONE_DE TECTIONS_STATUS ENABLED [facility] Model [id number] Viva XT PATTERNMAKER METAL BENCH-D [facility] Model 4196 Attain Ability MRI SureScan [facility] Model 5076 CapSureFix Novus [facility] Model 0144 [employer] [facility] Pacing Mode DDDR [facility] Serial Number [id number] [facility] Serial Number [id number] [facility] Serial Number [id number] [facility] Serial Number [id number] [facility] Test Charge Energy 18 J [facility] Test Charge Time 5.145 [facility] Therapy Status (Vent) Enabled [facility] Thresh RA Capture Amplitude (volts) 0.625 V [facility] Thresh RA Capture Duration (ms) 0.4 ms [facility] Thresh RA Sensing Amplitude (mvolts) 2.25 mV [facility] Thresh RV Capture Amplitude (VOLTS) 1.375 V [facility] Thresh RV Capture Duration (MS) 0.4 ms [facility] Thresh RV Sensing Amplitude (MVOLTS) 8.125 mV [facility] Tracking Rate (bpm) 90 {beats}/min [facility] VF Zone Detection Interval 450 ms [facility] VF Zone Therapy Configuration 2 ATP(s) + 0 Shock(s) [facility] No Panel Informationon 03-29 [facility] _ [facility] ICD-ATRIALTACHYCARDIA 0 [facility] ICD-Fast Ventricular Tachycardia 0 [facility] Implant Date 09/23/2016 [facility] BLANK _ [facility] ICD-ATRIALTACHYCARDIA 0 [facility] ICD-Fast Ventricular Tachycardia 0 [facility] Implant Date 09/23/2016 [facility] ICD REMOTE CHECKon 3 AV Delay Adaptive Paced Minimum (ms) 350 ms [facility] AV Delay Adaptive Rate Maximum (bpm) 90 {beats}/min [facility] AV Delay Adaptive Rate Minimum (bpm) 75 {beats}/min [facility] AV Delay Adaptive Sensed Minimum (ms) 250 ms [facility] AV Delay Adaptive Status ENABLED [facility] AV Delay Paced (ms) 100 ms [facility] AV Delay Sensed (ms) 70 ms [facility] Battery Voltage 2.79 V [facility] Scott RA Pacing Amplitude (volts) 2 V [facility] Scott RA Pacing Polarity BI [facility] Scott RA Pacing Pulse Width (ms) 0.4 ms [facility] Scott RA Sensing Amplitude (mvolts) 0.3 mV [facility] Scott RA Sensing Blanking Period (ms) 150 ms [facility] Scott RA Sensing Polarity BI [facility] Scott RA Sensing Refractory Period (ms) 250 ms [facility] Scott RV Pacing Amplitude (volts) 2.75 V [facility] Scott RV Pacing Polarity BI [facility] Scott RV Pacing Pulse Width (ms) 0.4 ms [facility] Scott RV Sensing Amplitude (mvolts) 0.3 mV [facility] Scott RV Sensing Blanking Period (ms) 200 ms [facility] Scott RV Sensing Polarity BI [facility] Detection Configuration (Vent) 2 - Zone [facility] FastVT_Detection Interval 450 ms [facility] FastVT_Therapy Configuration 2 ATP(s) + 0 Shock(s) [facility] ICD AFIB DetectionStatus DISABLED [facility] ICD ATAF DetectionInterval ms 450 ms [facility] ICD ATAF DetectionStatus ENABLED [facility] ICD ATAF TherapyConfiguration 2 ATP(s) + 0 Shock(s) [facility] ICD FastVT DetectionStatus ENABLED [facility] ICD-ADLRATE_BPM 85 {beats}/min [facility] ICD-AMS EPISODES 133 {beats}/min [facility] ICD-ATP Episodes (Vent) 0 [facility] ICD-ATRIALFIBRILLATION 0 Cl [facility] ICD-Counters Cleared Date 09/23/2016 [facility] ICD-Device Mfg MDT [facility] ICD-LEADIMPEDANCEATRIA L 342 ohm [facility] ICD-Percent Pacing (Atrial) 99.95 % [facility] ICD-Percent Pacing (Vent) 99.97 % [facility] ICD-PMT Intervention ENABLED [facility] ICD-PVC Intervention ENABLED [facility] ICD-Rate Modulation Acceleration Reaction 30 s [facility] ICD-Rate Modulation Deceleration Exercise [facility] ICD-Rate Modulation Cache 3 [facility] ICD-Rate Modulation Threshold MediumHigh [facility] ICD-Shocks Aborted (Vent) 0 [facility] [id number] 0 [facility] ICD-SHOCKSABORTED [address] [facility] ICD-SHOCKSDELIVEREDVEN TRICULAR 0 [facility] ICD-Ventricular Fibrillation 0 [facility] Implant Date 07/03/2005 [facility] Implant Date 11/30/2002 [facility] Lead Impedance (LV) 4047 ohm [facility] Lead Impedance (RV) 760 ohm [facility] Lead Impedance High Voltage 59 ohm [facility] Lead1 Mfg MDT [facility] Lead2 Mfg MDT [facility] Lead3 Mfg GDT [facility] Location LV [facility] Location RA [facility] Location RV [facility] Lower Rate (bpm) 80 {beats}/min [facility] LV PACING % 0 % [facility] Max Sensor Rate (bpm) 90 {beats}/min [facility] MDT_PROG_TACHY_ZONE_DE TECTIONS_STATUS ENABLED [facility] Model [id number] Viva XT PATTERNMAKER METAL BENCH-D [facility] Model 4196 Attain Ability MRI SureScan [facility] Model 5076 CapSureFix Novus [facility] Model 0144 [employer] [facility] Pacing Mode DDDR [facility] Serial Number [id number] [facility] Serial Number [id number] [facility] Serial Number [id number] [facility] Serial Number [id number] [facility] Test Charge Energy 18 J [facility] Test Charge Time 5.145 [facility] Therapy Status (Vent) Enabled [facility] Thresh RA Capture Amplitude (volts) 0.625 V [facility] Thresh RA Capture Duration (ms) 0.4 ms [facility] Thresh RA Sensing Amplitude (mvolts) 2.875 mV [facility] Thresh RV Capture Amplitude (VOLTS) 1.375 V [facility] Thresh RV Capture Duration (MS) 0.4 ms [facility] Thresh RV Sensing Amplitude (MVOLTS) 11 mV [facility] Tracking Rate (bpm) 90 {beats}/min C [facility] VF Zone Detection Interval 450 ms [facility] VF Zone Therapy Configuration 2 ATP(s) + 0 Shock(s) [facility] AV Delay Adaptive Paced Minimum (ms) 350 ms [facility] AV Delay Adaptive Rate Maximum (bpm) 90 {beats}/min [facility] AV Delay Adaptive Rate Minimum (bpm) 75 {beats}/min [facility] AV Delay Adaptive Sensed Minimum (ms) 250 ms [facility] AV Delay Adaptive Status ENABLED [facility] AV Delay Paced (ms) 100 ms [facility] AV Delay Sensed (ms) 70 ms [facility] Battery Voltage 2.78 V [facility] Scott RA Pacing Amplitude (volts) 2 V [facility] Scott RA Pacing Polarity BI [facility] Scott RA Pacing Pulse Width (ms) 0.4 ms [facility] Scott RA Sensing Amplitude (mvolts) 0.3 mV [facility] Scott RA Sensing Blanking Period (ms) 150 ms [facility] Scott RA Sensing Polarity BI [facility] Scott RA Sensing Refractory Period (ms) 250 ms [facility] Scott RV Pacing Amplitude (volts) 2.75 V [facility] Scott RV Pacing Polarity BI [facility] Scott RV Pacing Pulse Width (ms) 0.4 ms [facility] Scott RV Sensing Amplitude (mvolts) 0.3 mV [facility] Scott RV Sensing Blanking Period (ms) 200 ms [facility] Scott RV Sensing Polarity BI [facility] Detection Configuration (Vent) 2 - Zone [facility] FastVT_Detection Interval 450 ms [facility] FastVT_Therapy Configuration 2 ATP(s) + 0 Shock(s) [facility] ICD AFIB DetectionStatus DISABLED [facility] ICD ATAF DetectionInterval ms 450 ms [facility] ICD ATAF DetectionStatus ENABLED [facility] ICD ATAF TherapyConfiguration 2 ATP(s) + 0 Shock(s) [facility] ICD FastVT DetectionStatus ENABLED [facility] ICD-ADLRATE_BPM 85 {beats}/min [facility] ICD-AMS EPISODES 133 {beats}/min [facility] ICD-ATP Episodes (Vent) 0 [facility] ICD-ATRIALFIBRILLATION 0 Cl [facility] ICD-Counters Cleared Date 09/23/2016 [facility] ICD-Device Mfg MDT [facility] ICD-LEADIMPEDANCEATRIA L 361 ohm [facility] [facility] ICD-Percent Pacing (Atrial) 98.5 % [facility] ICD-Percent Pacing (Vent) 99.69 % [facility] ICD-PMT Intervention ENABLED [facility] ICD-PVC Intervention ENABLED [facility] ICD-Rate Modulation Acceleration Reaction 30 s [facility] ICD-Rate Modulation Deceleration Exercise [facility] ICD-Rate Modulation Cache 3 [facility] ICD-Rate Modulation Threshold MediumHigh [facility] ICD-Shocks Aborted (Vent) 0 [facility] [id number] 0 [facility] ICD-SHOCKSABORTED [address] [facility] ICD-SHOCKSDELIVEREDVEN TRICULAR 0 [facility] ICD-Ventricular Fibrillation 0 [facility] Implant Date 07/03/2005 [facility] Implant Date 11/30/2002 [facility] Lead Impedance (LV) 4047 ohm [facility] Lead Impedance (RV) 760 ohm [facility] Lead Impedance High Voltage 62 ohm [facility] Lead1 Mfg MDT [facility] Lead2 Mfg MDT [facility] Lead3 Mfg GDT [facility] Location LV [facility] Location RA [facility] Location RV [facility] Lower Rate (bpm) 80 {beats}/min [facility] LV PACING % 0 % [facility] Max Sensor Rate (bpm) 90 {beats}/min [facility] MDT_PROG_TACHY_ZONE_DE TECTIONS_STATUS ENABLED [facility] Model [id number] Viva XT PATTERNMAKER METAL BENCH-D [facility] Model 4196 Attain Ability MRI SureScan [facility] Model 5076 CapSureFix Novus [facility] Model 0144 [employer] Rx [facility] Pacing Mode DDDR [facility] Serial Number [id number] [facility] Serial Number [id number] [facility] Serial Number [id number] [facility] Serial Number [id number] [facility] Test Charge Energy 18 J [facility] Test Charge Time 5.145 [facility] Therapy Status (Vent) Enabled [facility] Thresh RA Capture Amplitude (volts) 0.625 V [facility] Thresh RA Capture Duration (ms) 0.4 ms [facility] Thresh RA Sensing Amplitude (mvolts) 2.875 mV [facility] Thresh RV Capture Amplitude (VOLTS) 1.375 V [facility] Thresh RV Capture Duration (MS) 0.4 ms [facility] Thresh RV Sensing Amplitude (MVOLTS) 13.25 mV [facility] Tracking Rate (bpm) 90 {beats}/min [facility] VF Zone Detection Interval 450 ms [facility] VF Zone Therapy Configuration 2 ATP(s) + 0 Shock(s) [facility] No Panel Informationon 03-05 [facility] _ [facility] ICD-ATRIALTACHYCARDIA 0 [facility] ICD-Fast Ventricular Tachycardia 0 [facility] Implant Date 09/23/2016 [facility] BLANK _ [facility] ICD-ATRIALTACHYCARDIA 0 [facility] ICD-Fast Ventricular Tachycardia 0 [facility] Implant Date 09/23/2016 [facility] XR CSPINE 2_3 VIEWSon 2022 XR [...] TENZIN ALEJO Date: 2023-01-27 10:58 Normal [facility] PROTIMEon 01-03-2023 INR Coag (PPP) [Relative time] 0.98 {INR} Normal [facility] Comment on above: Performed By: #### P T ####[facility] [address] [place] [address]Dr. Melissa Helm INR GUIDELINES SEE BELOW Normal [facility] Comment on above: Result Comment: POOJA RED INR: 2.0 - 3.0 CONDITIONS NOT LISTED BELOW 2.5 - 3.5 FOR PROSTHETIC HEART VALVE REPLACEMENT 2.5 - 3.5 RECURRENT THROMBOSIS Performed By: #### P T ####[facility] [address] [place] [address]DrTarun Helm PT Coag (PPP) [Time] 10.4 s Normal 9.0-11.6 [facility] Comment on above: Performed By: #### P T ####[facility] [address] [place] [address]Dr. Melissa Helm XR SHOULDER RT 2V or [...] by: FAUSTO GONCALVES Date: 2023-01-03 13:54 Normal [facility] ICD REMOTE CHECKon 3 AV Delay Adaptive Paced Minimum (ms) 350 ms [facility] AV Delay Adaptive Rate Maximum (bpm) 90 {beats}/min [facility] AV Delay Adaptive Rate Minimum (bpm) 75 {beats}/min [facility] AV Delay Adaptive Sensed Minimum (ms) 250 ms [facility] AV Delay Adaptive Status ENABLED [facility] AV Delay Paced (ms) 100 ms [facility] AV Delay Sensed (ms) 70 ms [facility] Battery Voltage 2.81 V [facility] Scott RA Pacing Amplitude (volts) 2 V [facility] Scott RA Pacing Polarity BI [facility] Scott RA Pacing Pulse Width (ms) 0.4 ms [facility] Scott RA Sensing Amplitude (mvolts) 0.3 mV [facility] Scott RA Sensing Blanking Period (ms) 150 ms [facility] Scott RA Sensing Polarity BI [facility] Scott RA Sensing Refractory Period (ms) 250 ms [facility] Scott RV Pacing Amplitude (volts) 2.75 V [facility] Scott RV Pacing Polarity BI [facility] Scott RV Pacing Pulse Width (ms) 0.4 ms [facility] Scott RV Sensing Amplitude (mvolts) 0.3 mV [facility] Scott RV Sensing Blanking Period (ms) 200 ms [facility] Scott RV Sensing Polarity BI [facility] Detection Configuration (Vent) 2 - Zone [facility] FastVT_Detection Interval 450 ms [facility] FastVT_Therapy Configuration 2 ATP(s) + 0 Shock(s) [facility] ICD AFIB DetectionStatus DISABLED [facility] ICD ATAF DetectionInterval ms 450 ms [facility] ICD ATAF DetectionStatus ENABLED [facility] ICD ATAF TherapyConfiguration 2 ATP(s) + 0 Shock(s) [facility] ICD FastVT DetectionStatus ENABLED [facility] ICD-ADLRATE_BPM 85 {beats}/min [facility] ICD-AMS EPISODES 133 {beats}/min [facility] ICD-ATP Episodes (Vent) 0 [facility] ICD-ATRIALFIBRILLATION 0 Cl [facility] ICD-Counters Cleared Date 09/23/2016 [facility] ICD-Device Mfg MDT [facility] ICD-LEADIMPEDANCEATRIA L 342 ohm [facility] ICD-Percent Pacing (Atrial) 99.28 % [facility] ICD-Percent Pacing (Vent) 99.57 % [facility] ICD-PMT Intervention ENABLED [facility] ICD-PVC Intervention ENABLED [facility] ICD-Rate Modulation Acceleration Reaction 30 s [facility] ICD-Rate Modulation Deceleration Exercise [facility] ICD-Rate Modulation Cache 3 [facility] ICD-Rate Modulation Threshold MediumHigh [facility] ICD-Shocks Aborted (Vent) 0 [facility] [id number] 0 [facility] ICD-SHOCKSABORTED [address] [facility] ICD-SHOCKSDELIVEREDVEN TRICULAR 0 [facility] ICD-Ventricular Fibrillation 0 [facility] Implant Date 07/03/2005 [facility] Implant Date 11/30/2002 [facility] Lead Impedance (LV) 4047 ohm [facility] Lead Impedance (RV) 722 ohm [facility] Lead Impedance High Voltage 64 ohm [facility] Lead1 Mfg MDT [facility] Lead2 Mfg MDT [facility] Lead3 Mfg GDT [facility] Location LV [facility] Location RA [facility] Location RV [facility] Lower Rate (bpm) 80 {beats}/min [facility] LV PACING % 0 % [facility] Max Sensor Rate (bpm) 90 {beats}/min [facility] MDT_PROG_TACHY_ZONE_DE TECTIONS_STATUS ENABLED [facility] Model [id number] Viva XT PATTERNMAKER METAL BENCH-D [facility] Model 4196 Attain Ability [facility] Model 5076 CapSureFix Novus [facility] Model 0144 [employer] Rx [facility] Pacing Mode DDDR [facility] Serial Number [id number] [facility] Serial Number [id number] [facility] Serial Number [id number] [facility] Serial Number [id number] [facility] Test Charge Energy 18 J [facility] Test Charge Time 4.834 [facility] Therapy Status (Vent) Enabled [facility] Thresh RA Capture Amplitude (volts) 0.625 V [facility] Thresh RA Capture Duration (ms) 0.4 ms [facility] Thresh RA Sensing Amplitude (mvolts) 2 mV [facility] Thresh RV Capture Amplitude (VOLTS) 1.375 V [facility] Thresh RV Capture Duration (MS) 0.4 ms [facility] Thresh RV Sensing Amplitude (MVOLTS) 7.5 mV [facility] Tracking Rate (bpm) 90 {beats}/min [facility] VF Zone Detection Interval 450 ms [facility] VF Zone Therapy Configuration 2 ATP(s) + 0 Shock(s) [facility] No Panel Informationon 11-28 BLANK _ [facility] ICD-ATRIALTACHYCARDIA 0 [facility] ICD-Fast Ventricular Tachycardia 0 [facility] Implant Date 09/23/2016 [facility] NM BONE IMAGE 3 PHASEon 10-01 [...] JC BRAVO Date: 2022-10-26 13:35 Normal [facility] TRANSFERRINon 10-07-2022 Transferrin [Mass/Vol] 354 mg/dL Normal 192-364 [facility] Comment on above: Performed By: #### T RANSFR #### [facility] [address] [place] [address] Dr. Melissa Helm CBC AUTO DIFFon 10-06-2022 BASO # 0.1 103/ul Normal 0.0-0.1 [facility] Comment on above: Performed By: #### C BC #### [facility] [address] [place] [address] Dr. Melissa Helm Basophils/100 WBC (Bld) 0.9 % Normal 0.2-2.0 [facility] Comment on above: Performed By: #### C BC #### [facility] [address] [place] [address] Dr. Melissa Helm EO # 0.4 103/ul Normal 0.0-0.7 [facility] Comment on above: Performed By: #### C BC #### [facility] [address] [place] [address] Dr. Melissa Helm Eosinophils/100 WBC (Bld) 2.7 % Normal 0.9-7.0 [facility] Comment on above: Performed By: #### C BC #### [facility] [address] [place] [address] Dr. Melissa Helm Erythrocyte distribution width (RBC) [Ratio] 20.8 % Critically high 11.0-15.0 [facility] Comment on above: Performed By: #### C BC #### [facility] [address] [place] [address] Dr. Melissa Helm Hematocrit (Bld) [Volume fraction] 38.3 % Normal 36.0-48.0 [facility] Comment on above: Performed By: #### C BC #### [facility] [address] [place] [address] Dr. Melissa Helm Hemoglobin (Bld) [Mass/Vol] 10.8 g/dL Critically low 12.0-16.0 [facility] Comment on above: Performed By: #### C BC #### [facility] [address] [place] [address] Dr. Melissa Helm IG # 0.07 10e3/ul Critically high 0.00-0.03 [facility] Comment on above: Performed By: #### C BC #### [facility] [address] [place] [address] Dr. Melissa Helm IG % 0.5 % Normal 0.0-0.5 [facility] Comment on above: Performed By: #### C BC #### [facility] [address] [place] [address] Dr. Melissa Helm LYMPH # 2.2 103/ul Normal 1.2-3.8 [facility] Comment on above: Performed By: #### C BC #### [facility] [address] [place] [address] Dr. Melissa Helm Lymphocytes/100 WBC (Bld) 17.5 % Critically low 20.5-60.0 [facility] Comment on above: Performed By: #### C BC #### [facility] [address] [place] [address] Dr. Melissa Helm MANUAL DIFF REQ NO Normal [facility] Comment on above: Performed By: #### C BC #### [facility] [address] [place] [address] Dr. Melissa Helm MCH (RBC) [Entitic mass] 20.6 pg Critically low 26.7-34.0 [facility] Comment on above: Performed By: #### C BC #### [facility] [address] [place] [address] Dr. Melissa Helm MCHC (RBC) [Mass/Vol] 28.2 g/dL Critically low 29.9-35.2 [facility] Comment on above: Performed By: #### C BC #### [facility] [address] [place] [address] Dr. Melissa Helm MCV (RBC) [Entitic vol] 73.0 fL Critically low 81.0-99.0 [facility] Comment on above: Performed By: #### C BC #### [facility] [address] [place] [address] Dr. Melissa Helm MONO # 1.2 103/ul Critically high 0.3-0.8 [facility] Comment on above: Performed By: #### C BC #### [facility] [address] [place] [address] Dr. Melissa Helm Monocytes/100 WBC (Bld) 9.0 % Normal 1.7-12.0 [facility] Comment on above: Performed By: #### C BC #### [facility] [address] [place] [address] Dr. Melissa Helm NEUT # 8.9 103/ul Critically high 1.4-6.5 [facility] Comment on above: Performed By: #### C BC #### [facility] [address] [place] [address] Dr. Melissa Helm Neutrophils/100 WBC (Bld) 69.4 % Normal 43.0-75.0 [facility] Comment on above: Performed By: #### C BC #### [facility] [address] [address] [address] Melissa Helm PLT 184 103/ul Normal 150-450 [facility] Comment on above: Performed By: #### C BC #### [facility] [address] [place] [address] Dr. Melissa Helm RBC 5.25 106/ul Normal 4.20-5.40 [facility] Comment on above: Performed By: #### C BC #### [facility] [address] [place] [address] Dr. Melissa Helm WBC 12.8 103/ul Critically high 4.0-11.0 [facility] Comment on above: Performed By: #### C BC #### [facility] [address] [place] [address] Dr. Melissa Helm FERRITINon 10-06-2022 Ferritin [Mass/Vol] 33.0 ng/mL Normal 8.0-252.0 [facility] Comment on above: Performed By: #### F ERR, FETIBC #### [facility] [address] [place] [address] Dr. Melissa Helm IRON AND TIBCon 10-06-2022 % SATURATION 20.3 % Normal [facility] Comment on above: Performed By: #### F ERR, FETIBC #### [facility] [address] [place] [address] Dr. Melissa Helm Iron [Mass/Vol] 89.0 ug/dL Normal 50.0-170.0 [facility] Comment on above: Performed By: #### F ERR, FETIBC #### [facility] [address] [place] [address] Dr. Melissa Helm TIBC DIRECT 438.0 ug/dL Normal 250.0-450. 0 [facility] Comment on above: Performed By: #### F ERR, FETIBC #### [facility] [address] [place] [address] Dr. Melissa Juárez 09-11-2022 CNPN Telephone (CARDMN) ----- ESSENCE VINCENT ([id number]) 1970 F Date Time Provider Department 09/11/22 [...] [I34.0] 07/16/2012 Pulmonary hypertension [I27.20] Dual chamber PATTERNMAKER METAL BENCH-D [Z95.810] 07/23/2020 Primary hypertension [I10] Nicotine use disorder [F17.200] Exercise-induced asthma [J45.990] Anemia [D64.9] 10/29/2011 07/23/2020 H/o GERD [K21.9] 07/23/2020 Migraines [G43.909] H/o Depression/Anxiety/Sleep disturbance [F32.* Preop testing [Z01.818] 07/08/2012 07/23/2020 SUMMARY [V999.95] 07/11/2012 07/23/2020 Pulmonary hypertension, moderate to severe (HCC*2012 Other acute postoperative pain [G89.18] 07/13/2012 07/16/2012 Pulmonary insuff [NAI9928] 07/13/2012 07/23/2020 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 [...] Status:Closed by NADIR BRANDT on 09/11/22 Normal [facility] ICD REMOTE CHECKon 2 AV Delay Adaptive Paced Minimum (ms) 350 ms [facility] AV Delay Adaptive Rate Maximum (bpm) 90 {beats}/min [facility] AV Delay Adaptive Rate Minimum (bpm) 75 {beats}/min [facility] AV Delay Adaptive Sensed Minimum (ms) 250 ms [facility] AV Delay Adaptive Status ENABLED [facility] AV Delay Paced (ms) 100 ms [facility] AV Delay Sensed (ms) 70 ms [facility] Battery Voltage 2.85 V [facility] Scott RA Pacing Amplitude (volts) 2 V [facility] Scott RA Pacing Polarity BI [facility] Scott RA Pacing Pulse Width (ms) 0.4 ms [facility] Scott RA Sensing Amplitude (mvolts) 0.3 mV [facility] Scott RA Sensing Blanking Period (ms) 150 ms [facility] Scott RA Sensing Polarity BI [facility] Scott RA Sensing Refractory Period (ms) 250 ms [facility] Scott RV Pacing Amplitude (volts) 2.5 V [facility] Scott RV Pacing Polarity BI [facility] Scott RV Pacing Pulse Width (ms) 0.4 ms [facility] Scott RV Sensing Amplitude (mvolts) 0.3 mV [facility] Scott RV Sensing Blanking Period (ms) 200 ms [facility] Scott RV Sensing Polarity BI [facility] Detection Configuration (Vent) 2 - Zone [facility] FastVT_Detection Interval 450 ms [facility] FastVT_Therapy Configuration 2 ATP(s) + 0 Shock(s) [facility] ICD AFIB DetectionStatus DISABLED [facility] ICD ATAF DetectionInterval ms 450 ms [facility] ICD ATAF DetectionStatus ENABLED [facility] ICD ATAF TherapyConfiguration 2 ATP(s) + 0 Shock(s) [facility] ICD FastVT DetectionStatus ENABLED [facility] ICD-ADLRATE_BPM 85 {beats}/min [facility] ICD-AMS EPISODES 133 {beats}/min [facility] ICD-ATP Episodes (Vent) 0 [facility] ICD-ATRIALFIBRILLATION 4 Cl [facility] ICD-ATRIALTACHYCARDIA 4 [facility] ICD-Counters Cleared Date 09/23/2016 [facility] ICD-Device Mfg T [facility] ICD-LEADIMPEDANCEATRIA L 361 ohm [facility] ICD-Percent Pacing (Atrial) 79.65 % [facility] ICD-Percent Pacing (Vent) 98.96 % [facility] ICD-PMT Intervention ENABLED [facility] ICD-PVC Intervention ENABLED [facility] ICD-Rate Modulation Acceleration Reaction 30 s [facility] ICD-Rate Modulation Deceleration Exercise [facility] ICD-Rate Modulation Cache 3 [facility] ICD-Rate Modulation Threshold MediumHigh [facility] ICD-Shocks Aborted (Vent) 0 [facility] [id number] 0 [facility] ICD-SHOCKSABORTED [address] [facility] ICD-SHOCKSDELIVEREDVEN TRICULAR 0 [facility] ICD-Ventricular Fibrillation 0 [facility] Implant Date 07/03/2005 [facility] Implant Date 11/30/2002 [facility] Lead Impedance (LV) 4047 ohm [facility] Lead Impedance (RV) 722 ohm [facility] Lead Impedance High Voltage 63 ohm [facility] Lead1 Mfg MDT [facility] Lead2 Mfg MDT [facility] Lead3 Mfg GDT [facility] Location LV [facility] Location RA [facility] Location RV [facility] Lower Rate (bpm) 80 {beats}/min [facility] LV PACING % 0 % [facility] Max Sensor Rate (bpm) 90 {beats}/min [facility] RENATO_PROG_TACHY_ZONE_DE TECTIONS_STATUS ENABLED [facility] Model [id number] Viva XT PATTERNMAKER METAL BENCH-D [facility] Model 4196 Attain Ability MRI SureScan [facility] Model 5076 CapSureFix Novus [facility] Model 0144 [employer] Rx [facility] Pacing Mode DDDR [facility] Serial Number [id number] [facility] Serial Number [id number] [facility] Serial Number [id number] [facility] Serial Number [id number] [facility] Test Charge Energy 18 J [facility] Test Charge Time 4.464 [facility] Therapy Status (Vent) Enabled [facility] Thresh RA Capture Amplitude (volts) 0.625 V [facility] Thresh RA Capture Duration (ms) 0.4 ms [facility] Thresh RA Sensing Amplitude (mvolts) 2.375 mV [facility] Thresh RV Capture Amplitude (VOLTS) 1.25 V [facility] Thresh RV Capture Duration (MS) 0.4 ms [facility] Thresh RV Sensing Amplitude (MVOLTS) 12 mV [facility] Tracking Rate (bpm) 90 {beats}/min [facility] VF Zone Detection Interval 450 ms [facility] VF Zone Therapy Configuration 2 ATP(s) + 0 Shock(s) [facility] No Panel Informationon 08-25 BLANK _ [facility] ICD-ATRIALTACHYCARDIA 0 [facility] ICD-Fast Ventricular Tachycardia 0 [facility] Implant Date 09/23/2016 [facility] ICD REMOTE CHECKon 2 AV Delay Adaptive Paced Minimum (ms) 350 ms [facility] AV Delay Adaptive Rate Maximum (bpm) 90 {beats}/min [facility] AV Delay Adaptive Rate Minimum (bpm) 75 {beats}/min [facility] AV Delay Adaptive Sensed Minimum (ms) 250 ms [facility] AV Delay Adaptive Status ENABLED [facility] AV Delay Paced (ms) 100 ms [facility] AV Delay Sensed (ms) 70 ms [facility] Battery Voltage 2.86 V [facility] Scott RA Pacing Amplitude (volts) 2 V [facility] Scott RA Pacing Polarity BI [facility] Scott RA Pacing Pulse Width (ms) 0.4 ms [facility] Scott RA Sensing Amplitude (mvolts) 0.3 mV [facility] Scott RA Sensing Blanking Period (ms) 150 ms [facility] Scott RA Sensing Polarity BI [facility] Scott RA Sensing Refractory Period (ms) 250 ms [facility] Scott RV Pacing Amplitude (volts) 3 V [facility] Scott RV Pacing Polarity BI [facility] Scott RV Pacing Pulse Width (ms) 0.4 ms [facility] Scott RV Sensing Amplitude (mvolts) 0.3 mV [facility] Scott RV Sensing Blanking Period (ms) 200 ms [facility] Scott RV Sensing Polarity BI [facility] Detection Configuration (Vent) 2 - Zone [facility] FastVT_Detection Interval 450 ms [facility] FastVT_Therapy Configuration 2 ATP(s) + 0 Shock(s) [facility] ICD AFIB DetectionStatus DISABLED [facility] ICD ATAF DetectionInterval ms 450 ms [facility] ICD ATAF DetectionStatus ENABLED [facility] ICD ATAF TherapyConfiguration 2 ATP(s) + 0 Shock(s) [facility] ICD FastVT DetectionStatus ENABLED [facility] ICD-ADLRATE_BPM 85 {beats}/min [facility] ICD-AMS EPISODES 133 {beats}/min [facility] ICD-ATP Episodes (Vent) 0 [facility] ICD-ATRIALFIBRILLATION 1 [facility] ICD-ATRIALTACHYCARDIA 1 [facility] ICD-Counters Cleared Date 09/23/2016 [facility] ICD-Device Sri GROSS [facility] ICD-LEADIMPEDANCEATRIA L 361 ohm [facility] ICD-Percent Pacing (Atrial) 84.32 % [facility] ICD-Percent Pacing (Vent) 99.05 % [facility] ICD-PMT Intervention ENABLED [facility] ICD-PVC Intervention ENABLED [facility] ICD-Rate Modulation Acceleration Reaction 30 s [facility] ICD-Rate Modulation Deceleration Exercise [facility] ICD-Rate Modulation Cache 3 [facility] ICD-Rate Modulation Threshold MediumHigh [facility] ICD-Shocks Aborted (Vent) 0 [facility] [id number] 0 [facility] ICD-SHOCKSABORTED [address] [facility] ICD-SHOCKSDELIVEREDVEN TRICULAR 0 [facility] ICD-Ventricular Fibrillation 0 [facility] Implant Date 07/03/2005 [facility] Implant Date 11/30/2002 [facility] Lead Impedance (LV) 4047 ohm [facility] Lead Impedance (RV) 722 ohm [facility] Lead Impedance High Voltage 63 ohm [facility] Lead1 Sri GROSS [facility] Lead2 Sri GROSS [facility] Lead3 Mfg GDT [facility] Location LV [facility] Location RA [facility] Location RV [facility] Lower Rate (bpm) 80 {beats}/min [facility] LV PACING % 0 % [facility] Max Sensor Rate (bpm) 90 {beats}/min [facility] MDT_PROG_TACHY_ZONE_DE TECTIONS_STATUS ENABLED [facility] Model [id number] Viva XT PATTERNMAKER METAL BENCH-D [facility] Model 4196 Attain Ability MRI SureScan [facility] Model 5076 CapSureFix Novus [facility] Model 0144 [employer] Rx [facility] Pacing Mode DDDR [facility] Serial Number [id number] [facility] Serial Number [id number] [facility] Serial Number [id number] [facility] Serial Number [id number] [facility] Test Charge Energy 18 J [facility] Test Charge Time 4.464 [facility] Therapy Status (Vent) Enabled [facility] Thresh RA Capture Amplitude (volts) 0.625 V [facility] Thresh RA Capture Duration (ms) 0.4 ms [facility] Thresh RA Sensing Amplitude (mvolts) 3.125 mV [facility] Thresh RV Capture Amplitude (VOLTS) 1.5 V [facility] Thresh RV Capture Duration (MS) 0.4 ms [facility] Thresh RV Sensing Amplitude (MVOLTS) 10.75 mV [facility] Tracking Rate (bpm) 90 {beats}/min C [facility] VF Zone Detection Interval 450 ms [facility] VF Zone Therapy Configuration 2 ATP(s) + 0 Shock(s) [facility] No Panel Informationon 07-01 BLANK _ [facility] ICD-ATRIALTACHYCARDIA 0 [facility] ICD-Fast Ventricular Tachycardia 0 [facility] Implant Date 09/23/2016 [facility] ICD REMOTE CHECKon 2 AV Delay Adaptive Paced Minimum (ms) 350 ms [facility] AV Delay Adaptive Rate Maximum (bpm) 90 {beats}/min [facility] AV Delay Adaptive Rate Minimum (bpm) 75 {beats}/min [facility] AV Delay Adaptive Sensed Minimum (ms) 250 ms [facility] AV Delay Adaptive Status ENABLED [facility] AV Delay Paced (ms) 100 ms [facility] AV Delay Sensed (ms) 70 ms [facility] Battery Voltage 2.85 V [facility] Scott LV Pacing Polarity BI [facility] Scott RA Pacing Amplitude (volts) 2 V [facility] Scott RA Pacing Polarity BI [facility] Scott RA Pacing Pulse Width (ms) 0.4 ms [facility] Scott RA Sensing Amplitude (mvolts) 0.3 mV [facility] Scott RA Sensing Blanking Period (ms) 150 ms [facility] Scott RA Sensing Polarity BI [facility] Scott RA Sensing Refractory Period (ms) 250 ms [facility] Scott RV Pacing Amplitude (volts) 2.75 V [facility] Scott RV Pacing Polarity BI [facility] Scott RV Pacing Pulse Width (ms) 0.4 ms [facility] Scott RV Sensing Amplitude (mvolts) 0.3 mV [facility] Scott RV Sensing Blanking Period (ms) 200 ms [facility] Scott RV Sensing Polarity BI [facility] Detection Configuration (Vent) 2 - Zone [facility] FastVT_Detection Interval 450 ms [facility] FastVT_Therapy Configuration 2 ATP(s) + 0 Shock(s) [facility] ICD AFIB DetectionStatus DISABLED [facility] ICD ATAF DetectionInterval ms 450 ms [facility] ICD ATAF DetectionStatus ENABLED [facility] ICD ATAF TherapyConfiguration 2 ATP(s) + 0 Shock(s) [facility] ICD FastVT DetectionStatus ENABLED [facility] ICD-ADLRATE_BPM 85 {beats}/min [facility] ICD-AMS EPISODES 133 {beats}/min [facility] ICD-ATP Episodes (Vent) 0 [facility] ICD-ATRIALFIBRILLATION 117 Cl [facility] ICD-ATRIALTACHYCARDIA 117 [facility] ICD-Counters Cleared Date 09/23/2016 [facility] ICD-Device Mfg MDT [facility] ICD-LEADIMPEDANCEATRIA L 342 ohm [facility] ICD-Percent Pacing (Atrial) 67.54 % [facility] ICD-Percent Pacing (Vent) 96.8 % [facility] ICD-PMT Intervention ENABLED [facility] ICD-PVC Intervention ENABLED [facility] ICD-Rate Modulation Acceleration Reaction 30 s [facility] ICD-Rate Modulation Deceleration Exercise [facility] ICD-Rate Modulation Cache 3 [facility] ICD-Rate Modulation Threshold MediumHigh [facility] ICD-Shocks Aborted (Vent) 0 [facility] [id number] 0 [facility] ICD-SHOCKSABORTED [address] [facility] ICD-SHOCKSDELIVEREDVEN TRICULAR 0 [facility] ICD-Ventricular Fibrillation 0 [facility] Implant Date 07/03/2005 [facility] Implant Date 11/30/2002 [facility] Lead Impedance (LV) 4047 ohm [facility] Lead Impedance (RV) 703 ohm [facility] Lead Impedance High Voltage 60 ohm [facility] Lead1 Mfg MDT [facility] Lead2 Mfg MDT [facility] Lead3 Mfg GDT [facility] Location LV [facility] Location RA [facility] Location RV [facility] Lower Rate (bpm) 80 {beats}/min [facility] LV PACING % 0 % [facility] Max Sensor Rate (bpm) 90 {beats}/min [facility] MDT_PROG_TACHY_ZONE_DE TECTIONS_STATUS ENABLED [facility] Model [id number] Viva XT PATTERNMAKER METAL BENCH-D [facility] Model 4196 Attain Ability MRI SureScan [facility] Model 5076 CapSureFix Novus [facility] Model 0144 [employer] Rx [facility] Pacing Mode DDDR [facility] Serial Number [id number] [facility] Serial Number [id number] [facility] Serial Number [id number] [facility] Serial Number [id number] [facility] Test Charge Energy 18 J [facility] Test Charge Time 4.464 [facility] Therapy Status (Vent) Enabled [facility] Thresh RA Capture Amplitude (volts) 0.625 V [facility] Thresh RA Capture Duration (ms) 0.4 ms [facility] Thresh RA Sensing Amplitude (mvolts) 2 mV [facility] Thresh RV Capture Amplitude (VOLTS) 1.375 V [facility] Thresh RV Capture Duration (MS) 0.4 ms [facility] Thresh RV Sensing Amplitude (MVOLTS) 10.375 mV [facility] Tracking Rate (bpm) 90 {beats}/min C [facility] VF Zone Detection Interval 450 ms [facility] VF Zone Therapy Configuration 2 ATP(s) + 0 Shock(s) [facility] AV Delay Adaptive Paced Minimum (ms) 350 ms [facility] AV Delay Adaptive Rate Maximum (bpm) 90 {beats}/min [facility] AV Delay Adaptive Rate Minimum (bpm) 75 {beats}/min [facility] AV Delay Adaptive Sensed Minimum (ms) 250 ms [facility] AV Delay Adaptive Status ENABLED [facility] AV Delay Paced (ms) 100 ms [facility] AV Delay Sensed (ms) 70 ms [facility] Battery Voltage 2.85 V [facility] Scott LV Pacing Polarity BI [facility] Scott RA Pacing Amplitude (volts) 2 V [facility] Scott RA Pacing Polarity BI [facility] Scott RA Pacing Pulse Width (ms) 0.4 ms [facility] Scott RA Sensing Amplitude (mvolts) 0.3 mV [facility] Scott RA Sensing Blanking Period (ms) 150 ms [facility] Scott RA Sensing Polarity BI [facility] Scott RA Sensing Refractory Period (ms) 250 ms [facility] Scott RV Pacing Amplitude (volts) 2.75 V [facility] Scott RV Pacing Polarity BI [facility] Scott RV Pacing Pulse Width (ms) 0.4 ms [facility] Scott RV Sensing Amplitude (mvolts) 0.3 mV [facility] Scott RV Sensing Blanking Period (ms) 200 ms [facility] Scott RV Sensing Polarity BI [facility] Detection Configuration (Vent) 2 - Zone [facility] FastVT_Detection Interval 450 ms [facility] FastVT_Therapy Configuration 2 ATP(s) + 0 Shock(s) [facility] ICD AFIB DetectionStatus DISABLED [facility] ICD ATAF DetectionInterval ms 450 ms [facility] ICD ATAF DetectionStatus ENABLED [facility] ICD ATAF TherapyConfiguration 2 ATP(s) + 0 Shock(s) [facility] ICD FastVT DetectionStatus ENABLED [facility] ICD-ADLRATE_BPM 85 {beats}/min [facility] ICD-AMS EPISODES 133 {beats}/min [facility] ICD-ATP Episodes (Vent) 0 [facility] ICD-ATRIALFIBRILLATION 117 Cl [facility] ICD-ATRIALTACHYCARDIA 117 [facility] ICD-Counters Cleared Date 09/23/2016 [facility] ICD-Device Mfg MDT [facility] ICD-LEADIMPEDANCEATRIA L 342 ohm [facility] ICD-Percent Pacing (Atrial) 67.54 % [facility] ICD-Percent Pacing (Vent) 96.8 % [facility] ICD-PMT Intervention ENABLED [facility] ICD-PVC Intervention ENABLED [facility] ICD-Rate Modulation Acceleration Reaction 30 s [facility] ICD-Rate Modulation Deceleration Exercise [facility] ICD-Rate Modulation Cache 3 [facility] ICD-Rate Modulation Threshold MediumHigh [facility] ICD-Shocks Aborted (Vent) 0 [facility] [id number] 0 [facility] ICD-SHOCKSABORTED [address] [facility] ICD-SHOCKSDELIVEREDVEN TRICULAR 0 [facility] ICD-Ventricular Fibrillation 0 [facility] Implant Date 07/03/2005 [facility] Implant Date 11/30/2002 [facility] Lead Impedance (LV) 4047 ohm [facility] Lead Impedance (RV) 703 ohm [facility] Lead Impedance High Voltage 60 ohm [facility] Lead1 Mfg MDT [facility] Lead2 Mfg MDT [facility] Lead3 Mfg GDT [facility] Location LV [facility] Location RA [facility] Location RV [facility] Lower Rate (bpm) 80 {beats}/min [facility] LV PACING % 0 % [facility] Max Sensor Rate (bpm) 90 {beats}/min [facility] MDT_PROG_TACHY_ZONE_DE TECTIONS_STATUS ENABLED [facility] Model [id number] Viva XT PATTERNMAKER METAL BENCH-D [facility] Model 4196 Attain Ability [facility] Model 5076 CapSureFix Novus [facility] Model 0144 [employer] Rx [facility] Pacing Mode DDDR [facility] Serial Number [id number] [facility] Serial Number [id number] [facility] Serial Number [id number] [facility] Serial Number [id number] [facility] Test Charge Energy 18 J [facility] Test Charge Time 4.464 [facility] Therapy Status (Vent) Enabled [facility] Thresh RA Capture Amplitude (volts) 0.625 V [facility] Thresh RA Capture Duration (ms) 0.4 ms [facility] Thresh RA Sensing Amplitude (mvolts) 2 mV [facility] Thresh RV Capture Amplitude (VOLTS) 1.375 V [facility] Thresh RV Capture Duration (MS) 0.4 ms [facility] Thresh RV Sensing Amplitude (MVOLTS) 10.375 mV [facility] Tracking Rate (bpm) 90 {beats}/min C [facility] VF Zone Detection Interval 450 ms [facility] VF Zone Therapy Configuration 2 ATP(s) + 0 Shock(s) [facility] No Panel Informationon 06-01 BLANK _ [facility] ICD-ATRIALTACHYCARDIA 0 [facility] ICD-Fast Ventricular Tachycardia 0 [facility] Implant Date 09/23/2016 [facility] BLANK _ [facility] ICD-ATRIALTACHYCARDIA 0 [facility] ICD-Fast Ventricular Tachycardia 0 [facility] Implant Date 09/23/2016 [facility] Office Visit (Cardiology)on 04-24-2022 Follow-up visit [...] Pacemaker Interrogation; Status:Active - Retrospective Authorization; Requested for:[id number]; Health Maintenance Renew: Isosorbide Mononitrate ER 30 MG Oral Tablet Extended Release 24 Hour; TAKE 1 TABLET DAILY Avoid alcoholic beverages.; Status:Complete - Retrospective Authorization; Done: [id number] Avoid foods and beverages that contain caffeine.; Status:Complete - Retrospective Authorization; Done: [id number] Begin or continue regular aerobic exercise. Gradually work up to at least 3 sessions of 30 minutes of exercise a week.; Status:Complete - Retrospective Authorization; Done: [id number] Diets that are low in carbohydrates and high in protein are very popular for weight loss.; Status:Complete - Retrospective Authorization; Done: [id number] Eat a low fat and low cholesterol diet.; Status:Complete - Retrospective Authorization; Done: [id number] Please bring all medicines, vitamins, and herbal supplements with you when you come to the office.; Status:Complete - Retrospective Authorization; Done: [id number] Restrict the salt in your diet by avoiding highly salted foods.; Status:Complete - Retrospective Authorization; Done: [id number] Health Maintenance, Overweight with body mass index (BMI) of 29 to 29.9 in adult Losing just 5 to 10 pounds may lower your risk of health problems.; Status:Complete - Retrospective Authorization; Done: [id number] SocHx: Former smoker Tobacco Use Screening; Status:Complete; Done: [id number] Patient Instructions Follow up with Dr. Nunez in 6 months and 1 year with a device check. Drink plenty of water daily. Latesha Eaton CMA, am scribing for and in the presence of, Dr. Margareth Nunez, VANDA, FACC, FACP, RS. No list or bottles for comparison, patient or family member to call with any updates [phone] The provider reviewed the following test(s) and [...] for details. She has remote history of SC , cardiogenic shock, PCI circumflex and iABP, with persistent severe LV dysfunction. She later occluded her cicumflex. Years later, she had HF and severe MR and underwent mitral valve repair at [facility]. She had recurrent VT and atrial arrhythmias, and underwent several ablations and repeat percutaneous MVR at [facility]. After her MVR and ablation in July,, she had KALLI when then improved. She has had recurrent ICD shocks for atrial flutter. Personal review of ECG and cardiac data reviewed Outside records: EP study and successful ablation of atrial flutter. Multiple atrial tachycardias, possible left atrial tachycardia also noted and not targeted for ablation. December 2021. Discharge summary [facility] Oct 2021 Cardiology consult Oct 2021 ECG [...] heart failur (more content not included)... Normal [employer] Tobacco Screening.on 022 Fall risk assessment a) No falls within the last year [facility] [employer] DO Work Phone: Tobacco use status [facility] a) Yes [facility] [employer] DO Work Phone: Tobacco Screening. Yes [facility] DO Work Phone: XR LSPINE 2_3 [...] JC BRAVO Date: 2022-04-24 07:14 Normal [facility] TRANSFERRINon 04-17-2022 Transferrin [Mass/Vol] 418 mg/dL Critically high 192-364 [facility] Comment on above: Performed By: #### T RANSFR #### [facility] [address] [place], [place] [address] Dr. Melissa Helm CBC AUTO DIFFon 04-16-2022 BASO # 0.2 103/ul Critically high 0.0-0.1 [facility] Comment on above: Performed By: #### C BC ####[facility] [address] [place] [address]Dr. Melissa Helm Basophils/100 WBC (Bld) 1.2 % Normal 0.2-2.0 [facility] Comment on above: Performed By: #### C BC ####[facility] [address] [place] [id number]. Melissa Helm EO # 0.2 103/ul Normal 0.0-0.7 [facility] Comment on above: Performed By: #### C BC ####[facility] [address] [place] [id number]. Melissa Helm Eosinophils/100 WBC (Bld) 1.9 % Normal 0.9-7.0 [facility] Comment on above: Performed By: #### C BC ####[facility] [address] [place] [id number]. Melissa Helm Erythrocyte distribution width (RBC) [Ratio] 22.6 % Critically high 11.0-15.0 [facility] Comment on above: Performed By: #### C BC ####[facility] [address] [place] [address]Dr. Melissa Helm Hematocrit (Bld) [Volume fraction] 39.2 % Normal 36.0-48.0 [facility] Comment on above: Performed By: #### C BC ####[facility] [address] [place] [address]DrTarun Helm Hemoglobin (Bld) [Mass/Vol] 10.8 g/dL Critically low 12.0-16.0 [facility] Comment on above: Performed By: #### C BC ####[facility] [address] [place], [place] [address]DrTarun Helm IG # 0.03 10e3/ul Normal 0.00-0.03 [facility] Comment on above: Performed By: #### C BC ####[facility] [address] [place], [place] [address]DrTarun Helm IG % 0.2 % Normal 0.0-0.5 [facility] Comment on above: Performed By: #### C BC ####[facility] [address] [place], [place] [address]DrTarun Helm LYMPH # 2.5 103/ul Normal 1.2-3.8 [facility] Comment on above: Performed By: #### C BC ####[facility] [address] [place], [place] [address]DrTarun Helm Lymphocytes/100 WBC (Bld) 19.8 % Critically low 20.5-60.0 [facility] Comment on above: Performed By: #### C BC ####[facility] [address] [place], [place] [address]DrTarun Helm MANUAL DIFF REQ NO Normal [facility] Comment on above: Performed By: #### C BC ####[facility] [address] [place], [place] [address]DrTarun Helm MCH (RBC) [Entitic mass] 18.6 pg Critically low 26.7-34.0 [facility] Comment on above: Performed By: #### C BC ####[facility] [address] [place], [place] [address]DrTarun Helm MCHC (RBC) [Mass/Vol] 27.6 g/dL Critically low 29.9-35.2 [facility] Comment on above: Performed By: #### C BC ####[facility] [address] [place] [address]DrTarun Melissa Helm MCV (RBC) [Entitic vol] 67.4 fL Critically low 81.0-99.0 [facility] Comment on above: Performed By: #### C BC ####[facility] [address] [place] [address]DrTarun Melissa Helm MONO # 1.2 103/ul Critically high 0.3-0.8 [facility] Comment on above: Performed By: #### C BC ####[facility] [address] [place], [place] [address]DrTarun Melissa Volodymyr Monocytes/100 WBC (Bld) 10.0 % Normal 1.7-12.0 [facility] Comment on above: Performed By: #### C BC ####[facility] [address] [place], [place] [address]DrTarun Melissa Helm NEUT # 8.3 103/ul Critically high 1.4-6.5 [facility] Comment on above: Performed By: #### C BC ####[facility] [address] [place], [place] [address]DrTarun Melissa Volodymyr Neutrophils/100 WBC (Bld) 66.9 % Normal 43.0-75.0 [facility] Comment on above: Performed By: #### C BC ####[facility] [address] [place] [address]DrTarun Cortesdomingo Volodymyr PLT 235 103/ul Normal 150-450 [facility] Comment on above: Performed By: #### C BC ####[facility] [address] [place], [place] [address]DrTarun Cortesdomingo Volodymyr RBC 5.82 106/ul Critically high 4.20-5.40 [facility] [place] Comment on above: Performed By: #### C BC ####[facility] [address] [place], [place] [address]DrTarun Cortesdomingo Volodymyr WBC 12.4 103/ul Critically high 4.0-11.0 [facility] [place] Comment on above: Performed By: #### C BC ####[facility] [address] [place] [address]Dr. Melissa Helm FERRITINon 04-16-2022 Ferritin [Mass/Vol] 27.0 ng/mL Normal 8.0-252.0 [facility] Comment on above: Performed By: #### F ETIBC, FERR ####[facility] [address] [place] [address]Dr. Melissa Helm FREE T3on 04-16-2022 FREE T3 3.09 pg/mlL Normal 2.18-3.98 [facility] Comment on above: Performed By: #### C MP, FT3, LIPID, TSH ####[facility] [address] [place] [address]Dr. Melissa Helm IRON AND TIBCon 04-16-2022 % SATURATION 5.4 % Normal [facility] Comment on above: Performed By: #### F ETIBC, FERR ####[facility] [address] [place] [address]Dr. Melissa Helm Iron [Mass/Vol] 26.0 ug/dL Critically low 50.0-170.0 [facility] Comment on above: Performed By: #### F ETIBC, FERR ####[facility] [address] [place] [address]Dr. Melissa Helm TIBC DIRECT 483.0 ug/dL Critically high 250.0-450. 0 [facility] Comment on above: Performed By: #### F ETIBC, FERR ####[facility] [address] [place] [address]Dr. Melissa Helm LIPID PROFILEon 04-16-2022 CHOL-HDL RATIO NORM SEE BELOW Normal [facility] Comment on above: Result Comment: 3.3 - 4.4 LOW RISK 4.4 - 7.1 AVERAGE RISK 7.1 - 11.0 MODERATE RISK >11.0 HIGH RISK Performed By: #### C MP, FT3, LIPID, TSH ####[facility] [address] [place], [place] [address]Dr. Melissa Helm Cholesterol [Mass/Vol] 131 mg/dL Normal <=200 [facility] Comment on above: Performed By: #### C MP, FT3, LIPID, TSH ####[facility] [address] [place] [id number]. Melissa Helm Cholesterol in HDL [Mass/Vol] 51 mg/dL Normal 40-60 [facility] Comment on above: Performed By: #### C MP, FT3, LIPID, TSH ####[facility] [address] [place] [address]Dr. Melissa Helm Cholesterol in LDL [Mass/Vol] 54.0 mg/dL Normal [facility] Comment on above: Performed By: #### C MP, FT3, LIPID, TSH ####[facility] [address] [place] [address]Dr. Melissa Helm Cholesterol.total/Chol esterol in HDL [Mass ratio] 2.6 {ratio} Normal [facility] Comment on above: Performed By: #### C MP, FT3, LIPID, TSH ####[facility] [address] [place] [id number]. Melissa Helm HDL NORMAL > or = 60 mg/dl - LO W CARDIOVASCULAR RISK <40 mg/dl - HIGH CARDIOVASCULAR RISK Normal [facility] Comment on above: Performed By: #### C MP, FT3, LIPID, TSH ####[facility] [address] [place] [address]Dr. Melissa Helm LDL CALC NORMAL SEE BELOW Normal [facility] Comment on above: Result Comment: <100 mg/dl OPTIMAL 100 - 129 mg/dl NEAR OR ABOVE OPTIMAL 130 - 159 mg/dl BORDERLINE HIGH 160 - 189 mg/dl HIGH >190 mg/dl VERY HIGH Performed By: #### C MP, FT3, LIPID, TSH ####[facility] Rsjgzxjxgn49[address] [place] [address]Dr. Melissa Helm Triglyceride [Mass/Vol] 130 mg/dL Normal <=150 [facility] Comment on above: Performed By: #### C MP, FT3, LIPID, TSH ####[facility] Untqlgsjxe49[address] [place] [address]Dr. Melissa Helm VLDL CALC 26.0 mg/dL Normal [facility] Comment on above: Performed By: #### C MP, FT3, LIPID, TSH ####[facility] Kekshbpstg4[address] [place] [address]Dr. Melissa Helm PROF 14(COMP METB)on 022 Albumin [Mass/Vol] 4.0 g/dL Normal 3.4-5.0 [facility] Comment on above: Performed By: #### C MP, FT3, LIPID, TSH ####[facility] Syzsjiussr2475 [place] [address]Dr. Melissa Helm Albumin/Globulin [Mass ratio] 0.9 {ratio} Normal [facility] Comment on above: Performed By: #### C MP, FT3, LIPID, TSH ####[facility] Yutbmjwhjx3250 [place] [address]Dr. Melissa Helm ALP [Catalytic activity/Vol] 263 U/L Critically high 46-116 [facility] Comment on above: Performed By: #### C MP, FT3, LIPID, TSH ####[facility] Omgmeaobbs99[address] [place] [address]Dr. Melissa Helm ALT [Catalytic activity/Vol] 9 U/L Critically low 14-59 [facility] Comment on above: Performed By: #### C MP, FT3, LIPID, TSH ####[facility] Bfrlnbfgeo[address] [place] [address]Dr. Melissa Helm Anion gap [Moles/Vol] 14.7 mmol/L Normal [facility] Comment on above: Performed By: #### C MP, FT3, LIPID, TSH ####[facility] Mfemwfqrmq4259 [place] [address]Dr. Melissa Helm AST [Catalytic activity/Vol] 15 U/L Normal 15-37 [facility] Comment on above: Performed By: #### C MP, FT3, LIPID, TSH ####[facility] Olxxcefzox4109 [place] [address]Dr. Melissa Helm Bilirubin [Mass/Vol] 0.4 mg/dL Normal 0.2-1.0 [facility] Comment on above: Performed By: #### C MP, FT3, LIPID, TSH ####[facility] Fafukcxhfj2079 [place] [address]Dr. Melissa Helm Calcium [Mass/Vol] 9.1 mg/dL Normal 8.5-10.1 [facility] Comment on above: Performed By: #### C MP, FT3, LIPID, TSH ####[facility] Xcfmrihrpc1293 [place] [address]Dr. Melissa Helm Chloride [Moles/Vol] 98 mmol/L Normal 98-107 [facility] Comment on above: Performed By: #### C MP, FT3, LIPID, TSH ####[facility] Kbtritxqxx4826 [place] [address]Dr. Melissa Helm CO2 [Moles/Vol] 27.5 mmol/L Normal 21.0-32.0 [facility] [place] Comment on above: Performed By: #### C MP, FT3, LIPID, TSH ####[facility] [address] [place], [place] [address]Dr. Melissa Helm Creatinine [Mass/Vol] 1.08 mg/dL Critically high 0.55-1.02 [facility] Comment on above: Performed By: #### C MP, FT3, LIPID, TSH ####[facility] Njroqdjpir[address] [place] [address]Dr. Melissa Helm EGFR-AF CITIZEN OF [place] >60 Normal >=60 [facility] [place] Comment on above: Performed By: #### C MP, FT3, LIPID, TSH ####[facility] Opuotayodd3392 [place] [address]Dr. Melissa Helm EGFR-NON AF CITIZEN OF [place] 53 mL/min/1.73m2 Critically low >=60 [facility] Comment on above: Performed By: #### C MP, FT3, LIPID, TSH ####[facility] Fzqulroqpl8980 [place] [address]Dr. Melissa Helm Globulin (S) [Mass/Vol] 4.3 g/dL Normal [facility] Comment on above: Performed By: #### C MP, FT3, LIPID, TSH ####[facility] Jsmyhzmwoj7349 [place] [address]Dr. Melissa Helm Glucose [Mass/Vol] 80 mg/dL Normal 74-106 [facility] Comment on above: Performed By: #### C MP, FT3, LIPID, TSH ####[facility] Hslwowgktq0954 [place] [address]Dr. Melissa Helm Potassium [Moles/Vol] 3.2 mmol/L Critically low 3.5-5.1 [facility] Comment on above: Performed By: #### C MP, FT3, LIPID, TSH ####[facility] Ohehietiil3184 [place] [address]Dr. Melissa Helm Protein [Mass/Vol] 8.3 g/dL Critically high 6.4-8.2 [facility] Comment on above: Performed By: #### C MP, FT3, LIPID, TSH ####[facility] Qgfvcjcbzk1662 [place] [address]Dr. Melissa Helm Sodium [Moles/Vol] 137 mmol/L Normal 136-145 [facility] Comment on above: Performed By: #### C MP, FT3, LIPID, TSH ####[facility] Mehaofrdwu0653 [place] [address]Dr. Melissa Helm Urea nitrogen [Mass/Vol] 22.0 mg/dL Critically high 7.0-18.0 [facility] Comment on above: Performed By: #### C MP, FT3, LIPID, TSH ####[facility] Zwwkslpjlh9619 [place] [address]Dr. Melissa Helm Urea nitrogen/Creatinine [Mass ratio] 20.4 mg/mg Normal [facility] Comment on above: Performed By: #### C MP, FT3, LIPID, TSH ####[facility] Ydxxsviosu0024 [place] [address]Dr. Melissa Helm TSHon 04-16-2022 TSH 30.570 uIU/mL Critically high 0.358-3.74 0 [facility] Comment on above: Performed By: #### C MP, FT3, LIPID, TSH ####[facility] Rcsuhowzri5709 [place] [address]DrTarun Helm ICD REMOTE CHECKon 2 AV Delay Adaptive Paced Minimum (ms) 350 ms [facility] AV Delay Adaptive Rate Maximum (bpm) 90 {beats}/min [facility] AV Delay Adaptive Rate Minimum (bpm) 75 {beats}/min [facility] AV Delay Adaptive Sensed Minimum (ms) 250 ms [facility] AV Delay Adaptive Status ENABLED [facility] AV Delay Paced (ms) 100 ms [facility] AV Delay Sensed (ms) 70 ms [facility] Battery Voltage 2.87 V [facility] Scott LV Pacing Polarity BI [facility] Scott RA Pacing Amplitude (volts) 2 V [facility] Scott RA Pacing Polarity BI [facility] Scott RA Pacing Pulse Width (ms) 0.4 ms [facility] Scott RA Sensing Amplitude (mvolts) 0.3 mV [facility] Scott RA Sensing Blanking Period (ms) 150 ms [facility] Scott RA Sensing Polarity BI [facility] Scott RA Sensing Refractory Period (ms) 250 ms [facility] Scott RV Pacing Amplitude (volts) 3 V [facility] Scott RV Pacing Polarity BI [facility] Scott RV Pacing Pulse Width (ms) 0.4 ms [facility] Scott RV Sensing Amplitude (mvolts) 0.3 mV [facility] Scott RV Sensing Blanking Period (ms) 200 ms [facility] Scott RV Sensing Polarity BI [facility] Detection Configuration (Vent) 2 - Zone [facility] FastVT_Detection Interval 450 ms [facility] FastVT_Therapy Configuration 2 ATP(s) + 0 Shock(s) [facility] ICD AFIB DetectionStatus DISABLED [facility] ICD ATAF DetectionInterval ms 450 ms [facility] ICD ATAF DetectionStatus ENABLED [facility] ICD ATAF TherapyConfiguration 2 ATP(s) + 0 Shock(s) [facility] ICD FastVT DetectionStatus ENABLED [facility] ICD-ADLRATE_BPM 85 {beats}/min [facility] ICD-AMS EPISODES 133 {beats}/min [facility] ICD-ATP Episodes (Vent) 0 [facility] ICD-ATRIALFIBRILLATION 339 Cl [facility] ICD-ATRIALTACHYCARDIA 339 [facility] ICD-ATRIALTACHYCARDIA 5 [facility] ICD-ATRIALTACHYCARDIA 7 [facility] ICD-Counters Cleared Date 09/23/2016 [facility] ICD-Device Mfg MDT [facility] ICD-Fast Ventricular Tachycardia 7 [facility] ICD-LEADIMPEDANCEATRIA L 342 ohm [facility] ICD-Percent Pacing (Atrial) 58.38 % [facility] ICD-Percent Pacing (Vent) 88.05 % [facility] ICD-PMT Intervention ENABLED [facility] ICD-PVC Intervention ENABLED [facility] ICD-Rate Modulation Acceleration Reaction 30 s [facility] ICD-Rate Modulation Deceleration Exercise [facility] ICD-Rate Modulation Cache 3 [facility] ICD-Rate Modulation Threshold MediumHigh [facility] ICD-Shocks Aborted (Vent) 0 [facility] [id number]-[id number]-KCVRLUFBO 0 [facility] ICD-SHOCKSABORTED [address] [facility] ICD-SHOCKSDELIVEREDVEN TRICULAR 0 [facility] ICD-Ventricular Fibrillation 0 [facility] Implant Date 07/03/2005 [facility] Implant Date 11/30/2002 [facility] Lead Impedance (LV) 4047 ohm [facility] Lead Impedance (RV) 703 ohm [facility] Lead Impedance High Voltage 57 ohm [facility] Lead1 Mfg MDT [facility] Lead2 Mfg MDT [facility] Lead3 Mfg GDT [facility] Location LV [facility] Location RA [facility] Location RV [facility] Lower Rate (bpm) 80 {beats}/min [facility] LV PACING % 0 % [facility] Max Sensor Rate (bpm) 90 {beats}/min [facility] MDT_PROG_TACHY_ZONE_DE TECTIONS_STATUS ENABLED [facility] Model [id number] Viva XT PATTERNMAKER METAL BENCH-D [facility] Model 4196 Attain Ability MRI SureScan [facility] Model 5076 CapSureFix Novus [facility] Model 0144 [employer] [facility] Pacing Mode DDDR [facility] Serial Number [id number] [facility] Serial Number [id number] [facility] Serial Number [id number] [facility] Serial Number [id number] [facility] Test Charge Energy 18 J [facility] Test Charge Time 4.354 [facility] Therapy Status (Vent) Enabled [facility] Thresh RA Capture Amplitude (volts) 0.625 V [facility] Thresh RA Capture Duration (ms) 0.4 ms [facility] Thresh RA Sensing Amplitude (mvolts) 2 mV [facility] Thresh RV Capture Amplitude (VOLTS) 1.5 V [facility] Thresh RV Capture Duration (MS) 0.4 ms [facility] Thresh RV Sensing Amplitude (MVOLTS) 11.625 mV [facility] Tracking Rate (bpm) 90 {beats}/min [facility] VF Zone Detection Interval 450 ms [facility] VF Zone Therapy Configuration 2 ATP(s) + 0 Shock(s) [facility] No Panel Informationon 04-12 BLANK _ [facility] ICD-ATRIALTACHYCARDIA 0 [facility] ICD-Fast Ventricular Tachycardia 0 [facility] Implant Date 09/23/2016 [facility] COAGULATION SCREENon aPTT Coag (Bld) [Time] 29 s Normal 26 - 39 [facility] Comment on above: Result Comment: THE APTT IS NO LONGER USED FOR MONITORING UNFRACTIONATED HEPARIN THERAPY. FOR MONITORING HEPARIN THERAPY, USE THE HEPARIN ASSAY. Performed By: #### C OAGS #### [address] [phone] PT Coag (PPP) [Time] 16.1 s High 9.8 - 13.4 [facility] Comment on above: Performed By: #### C OAGS #### [address] [phone] PT, INR 1.4 High 0.9 - 1.1 [facility] Comment on above: Performed By: #### C OAGS #### [address] [phone] Discharge [id number] 022 Discharge Profile2 Discharge Orders: DNAR: Code Status at Discharge: Full Code Appointments: Follow-Up Appointment 02: Physician/Dept/ServiceDrTarun Nunez Reason for ReferralFollow-up Scheduled Date/Bmum92-Bts-9999 13:20 [facility] Office Phone [phone] Electronic Signatures: Axel Rangel (COOR) (Signed 21-Jan-2022 09:13) Authored: Discharge Orders, Appointments, Gold Form - Hand Funnel Coater Summary Last Updated: 21-Jan-2022 09:13 by Axel Rangel (COOR) Normal [facility] Laboratory - Coagulationon 0 01-21-2022 aPTT Coag (PPP) [Time] 29 s 26 - 39 [facility] [address] [place] Work Phone: Comment on above: THE APTT IS NO LONGE R USED FOR MONITORING UNFRACTIONATED HEPARIN THERAPY. FOR MONITORING HEPARIN THERAPY, USE THE HEPARIN ASSAY. INR Coag (PPP) [Relative time] 1.4 {INR} above high threshold 0.9 - 1.1 [facility] [address] [place] Work Phone: PT Coag (PPP) [Time] 16.1 s above high threshold 9.8 - 13.4 [facility] [address] [place] Work Phone: No Panel Informationon 01-21 [email or web address] ?[email or web address]=[email or web address]&Date =21-01-2022&Time=17%3a39% 3a41%3a00&TestType=ECG&Si te=11&OutputType=PDF&Ext= PDF [facility] [address] [place] Work Phone: Ventricular-paced rhythm [facility] [address] [place] Work Phone: Abnormal [facility] [address] [place] Work Phone: [phone] [facility] [address] [place] Work Phone: [phone] [facility] [address] [place] Work Phone: [phone] 1 [facility] [address] [place] Work Phone: [phone] [facility] [address] [place] Work Phone: [phone] 1 [facility] [address] [place] Work Phone: [phone] 1 [facility] [address] [place] Work Phone: [phone] 1 [facility] [address] [place] Work Phone: [phone] 1 [facility] [address] [place] Work Phone: [phone] 1 [facility] [address] [place] Work Phone: [phone] 1 [facility] [address] [place] Work Phone: [phone] 1 [facility] [address] [place] Work Phone: [phone] [email or web address] ?OyepvhqCW=[email or web address]&Date =21-01-2022&Time=09%3a40% 3a37%3a00&TestType=ECG&Si te=11&OutputType=PDF&Ext= PDF [facility] [address] [place] Work Phone: [phone] Atrial-paced rhythm [facility] [address] [place] Work Phone: [phone] Abnormal [facility] [address] [place] Work Phone: [phone] 1 [facility] [address] [place] Work Phone: [phone] 1 [facility] [address] [place] Work Phone: [phone] 1 [facility] [address] [place] Work Phone: [phone] 1 [facility] [address] [place] Work Phone: [phone] 1 [facility] [address] [place] Work Phone: [phone] 1 [facility] [address] [place] Work Phone: [phone] 1 [facility] [address] [place] Work Phone: [phone] 1 [facility] [address] [place] Work Phone: [phone] [facility] [address] [place] Work Phone: [phone] [facility] [address] [place] Work Phone: [phone] 1 [facility] [address] [place] Work Phone: [phone] 1 [facility] [address] [place] Work Phone: [phone] 1 [facility] [address] [place] Work Phone: [phone] 1 [facility] [address] [place] Work Phone: Order Reconciliationon 01-21 Order Reconciliation Page 1 Admission Reconciliation Document Reconciliation Type: Observation requested on behalf of Yessi Miller (Advanced Practice Nurse) done by Yessi Miller (PASSENGER CAR CONDUCTOR-[facility]) Observation - Reconciliation: 21-Jan-2022 16:52 by: Yessi Miller (PASSENGER CAR CONDUCTOR-[employer]) Home MedicationsEnteredLast Dose TakenReconciled with current Order Reconciliation Comment/ Additional Information amiodarone 400 mg oral tablet 1 tab(s) orally once a pux96-Wna-640421-Jan-2022 AM Amiodarone Tablet (CORDARONE; PACERONE)DOSE = 400 [...] oral tablet 1 tab(s) orally once a ywe14-Qyi-833421-Jan-2022 PM Atorvastatin Tablet (LIPITOR)DOSE = 80 mg Oral Daily atorvastatin 80 mg oral tablet continued as the inpatient order Atorvastatin mhtgszzgrr-mekq-ivunlcsc 50-300-40mg 1 cap(s) orally 2 times a rvx68-Bko-863621-Jan-2022 Reviewed and Held escitalopram 20 mg oral tablet 1 tab(s) orally once a oel96-Zgv-316321-Jan-2022 AM Escitalopram Tablet (LEXAPRO)DOSE = 20 mg Oral Daily escitalopram 20 mg oral tablet continued as the inpatient order Escitalopram KlonoPIN Wafer 0.5 mg oral tablet, disintegrating 1 tab(s) orally 3 times daily 664231-Tkv-4202 PM clonazePAM (KLONOPIN) TabletDOSE = 0.5 mg Oral Every 8 HoursKlonoPIN Wafer 0.5 mg oral tablet, disintegrating continued as the inpatient order clonazePAM (KLONOPIN) Mag-Ox 400 oral tablet 1 tab(s) orally 2 times a xix88-Eoe-635193-Plo-9299 AM Magnesium Oxide Tablet (Mag-Ox)DOSE = 400 mg Oral DailyMag-Ox 400 oral tablet continued as the inpatient order Magnesium Oxide Metoprolol Succinate ER 100 mg oral tablet, extended release 1 tab(s) orally once a whg93-Zaa-434273-Kdn-7576 PM Metoprolol Succinate Extended Release Tablet, Extended Release (TOPROL-XL)DOSE = 100 mg Oral DailyMetoprolol Succinate ER 100 mg oral tablet, extended release continued as the inpatient order Metoprolol Succinate Extended Release Multiple Vitamins oral tablet, dispersible 1 tab(s) orally once a day [id number]-3760 Reviewed and Held Nitrostat 0.4 mg sublingual tablet 1 tab(s) sublingual every 5 minutes, As Ymwgxd51-Eoi-8100VQRIXPW UNKNOWN Nitroglycerin SubLingual Tablet (NITROSTAT)DOSE = 0.4 mg SubLingual Every 5 Minutes, PRN AnginaNitrostat 0.4 mg sublingual tablet continued as the inpatient order Nitroglycerin SubLingual omeprazole 40 mg oral delayed release capsule 1 cap(s) orally once a day 915676-Pcb-5398 AM Pantoprazole Enteric Coated Tablet (PROTONIX)DOSE = 40 mg Oral DailyNotes from Pharmacy: Substitution for Omeprazole 40 mg Oral Capsule Dailyomeprazole 40 mg oral delayed release capsule continued as the inpatient order Pantoprazole Potassium Chloride (Xfv-Fptk-Sma M20) 20 mEq oral tablet, extended release 1 tab(s) orally once a rgz08-Vgg-847333-Fxp-9053 AM Potassium Chloride Extended Release Tablet, Extended ReleaseDOSE = 20 mEq Oral DailyPotassium Chloride (Ptg-Ifgt-Lef M20) 20 mEq oral tablet, extended release continued as the inpatient order Potassium Chloride Extended Release rOPINIRole 0.25 mg oral tablet 3 tab(s) orally once a day (at bedtime) 844675-Ste-0081 PM rOPINIRole (REQUIP) TabletDOSE = 0.75 mg Oral At BedtimerOPINIRole 0.25 mg oral tablet continued as the inpatient order rOPINIRole (REQUIP) torsemide 20 mg oral tablet 1 tab(s) orally once a snv22-Xkl-824280-Nzy-8230 AM Torsemide Tablet (DEMADEX)DOSE = 20 mg Oral Dailytorsemide 20 mg oral tablet continued as the inpatient order Torsemide traZODone 50 mg oral tablet 1 tab(s) orally once a day (at bedtime), As Needed 477881-Prd-3974 PM traZODone Tablet (DESYREL)DOSE = 50 mg Oral At Bedtime, PRN InsomniatraZODone 50 mg oral tablet continued as the inpatient order traZODone warfarin 5 mg oral tablet 1 tab(s) orally once a day. Resume 01/22/2022. [id number]-Rwa-4634 8:00 AM Reviewed and Held Additional Current [...] mL Run at: 10 mL/hr IntraVenous Normal [facility] Order Reconciliation Page 1 Discharge Reconciliation Document Reconciliation Type: Discharge requested on behalf of Yessi Miller (Advanced Practice Nurse) done by Yessi Miller (PASSENGER CAR [employer]CTOR[employer]) Discharge - Reconciliation: 21-Jan-2022 16:48 by: Yessi Miller (PASSENGER CAR CONDUCTOR[employer]) Home Medications EnteredHOME MEDICATIONS AT DISCHARGE DateReconciliation [...] continued as atorvastatin 80 mg oral tablet qxvvkhndbb-mdvv-cunbatve 50-300-40mg 1 cap(s) orally 2 times a day 30-Dec-2021 10:27 gtqwhnodet-guyt-zgxctcqe 50-300-40mg 1 cap(s) orally 2 times a day 30-Dec-2021 10:27 ylobslggpb-zypa-sayomhst 50-300-40mg is continued as fpvrbfdkah-ypyy-zwnlqfgf 50-300-40mg escitalopram 20 mg oral tablet 1 [...] mg oral delayed release capsule Potassium Chloride (Fqa-Tesg-Pvp M20) 20 mEq oral tablet, extended release 1 tab(s) orally once a day 30-Dec-2021 10:33 Potassium Chloride (Upw-Qric-Sbi M20) 20 mEq oral tablet, extended release 1 tab(s) orally once a day 30-Dec-2021 10:33 Potassium Chloride (Ozx-Ewoa-Wqm M20) 20 mEq oral tablet, extended release is continued as Potassium Chloride (Yyv-Lrkv-Upx M20) 20 mEq oral tablet, extended release [...] and modifie (more content not included)... Normal [facility] Patient Profile - Preop v3on 01-21-2022 Patient Profile - Preop v3 Patient Profile - Preop: Initial Info: Patient DemographicsName: ESSENCE VINCENT Date: 1970 Address: [address] [place] [address] Date/Time Ovbjxc98-[id number]-[id number] Primary Phone [id number] How to be AddressedSherry Spoken Language PreferredEnglish Source of Informationpatient Stated Reason for AdmissionTEE/EP study and ablation Primary Contact Name and NumberDepeggy Singer (significant other) [phone] Limitations on Visitors/Phone Callsnone Medications Brought to Hospital[facility] General Health: Weight in kg76.6 kilogram(s) Weight in ykd635.8 pound(s) Weight Methodactual (measured) Scale Typestanding Height [...] valvular disease; dyslipidemia Cardiovascular Management Strategiesroutine screening; remote medical coder; medication therapy Barriers to Managing Healthnone Relationship/Environ: Lives Withalone Living Arrangementsapartment Resource/Environmental Concernsnone Anticipated Transition [place] [facility] Anticipated at Transitionnone Tobacco Use: Tobacco Useno Pre-op Checklist: Arrival Ndlw00-Vig-5563 Arrival Time09:21 Procedure TypeTEE/EPS/Ablation NPOyes Last Food Pdscao64-Ncs-9209 23:00 Last Clear Fluid Iivtpv96-Aqg-4564 07:00 ID Band On Patientpatient ID (name), [...] Updated: 21-Jan-2022 11:18 by Nannette Alvarez (ELZA) [facility] Transesophageal Echoon 01-21 Transesophageal Echo [place] [address] TRANSESOPHAGEAL ECHOCARDIOGRAM REPORT Patient Name: ESSENCE Gamez Mary Physician: [id number] [facility] [facility] Study Date: 01/21/2022 Referring [id number] SOCO LEONORA Physician: MRN/PID: [id number] PCP: Accession/Order#: [id number] Department 2S CathLab Location: Date of : 1970 Fellow: Gender: F Nurse: Yolanda Farrell RN Admit Date: 01/21/2022 Rock Picker: Trina Obregon [facility] Admission Status: Outpatient Additional Staff: Height: 157.00 cm CC Report to: Weight: 76.00 kg Study Type: Transesophageal Echo BSA: 1.77 m2 Blood Pressure: 128 /63 mmHg Diagnosis/ICD: Z01.810-Encounter for preprocedural cardiovascular examination Indication: PRE-EP Procedure/CPT: JOVITA Complete-23854; Moderate Sedation Services initial 15 minutes patient >5 years-36797 Study Detail: The following Echo studies were [...] RV Syst Pressure: 40.5 mmHg (< 30mmHg) [id number] Soco Bhardwaj MD Electronically signed on 01/21/2022 at 2:53:25 PM Final Normal [facility] Transesophageal Echo MP-N [facility] [address] [place] Work Phone: ICD REMOTE CHECKon 2 AV Delay Adaptive Paced Minimum (ms) 350 ms [facility] AV Delay Adaptive Rate Maximum (bpm) 90 {beats}/min [facility] Adaptive Rate Minimum (bpm) 75 {beats}/min [facility] Delay Adaptive Sensed Minimum (ms) 250 ms [facility] AV Delay Adaptive Status ENABLED [facility] AV Delay Paced (ms) 100 ms [facility] AV Delay Sensed (ms) 70 ms [facility] Battery Voltage 2.9 V [facility] Scott LV Pacing Polarity BI [facility] Scott RA Pacing Amplitude (volts) 2 V [facility] Scott RA Pacing Polarity BI [facility] Scott RA Pacing Pulse Width (ms) 0.4 ms [facility] Scott RA Sensing Amplitude (mvolts) 0.3 mV [facility] Scott RA Sensing Blanking Period (ms) 150 ms [facility] Scott RA Sensing Polarity BI [facility] Scott RA Sensing Refractory Period (ms) 250 ms [facility] Scott RV Pacing Amplitude (volts) 3 V [facility] Scott RV Pacing Polarity BI [facility] Scott RV Pacing Pulse Width (ms) 0.4 ms [facility] Scott RV Sensing Amplitude (mvolts) 0.3 mV [facility] Scott RV Sensing Blanking Period (ms) 200 ms [facility] Scott RV Sensing Polarity BI [facility] Detection Configuration (Vent) 2 - Zone [facility] FastVT_Detection Interval 450 ms [facility] FastVT_Therapy Configuration 2 ATP(s) + 0 Shock(s) [facility] ICD ATAF DetectionInterval ms 450 ms [facility] ICD ATAF DetectionStatus ENABLED [facility] ICD ATAF TherapyConfiguration 2 ATP(s) + 0 Shock(s) [facility] ICD FastVT DetectionStatus ENABLED [facility] ICD-ADLRATE_BPM 85 {beats}/min [facility] ICD-AMS EPISODES 133 {beats}/min [facility] ICD-ATP Episodes (Vent) 0 [facility] ICD-ATRIALFIBRILLATION 2063 Cl [facility] ICD-ATRIALTACHYCARDIA 2063 [facility] ICD-ATRIALTACHYCARDIA 17 [facility] ICD-Counters Cleared Date 09/23/2016 [facility] ICD-Device Mfg T [facility] ICD-LEADIMPEDANCEATRIA L 304 ohm [facility] ICD-Percent Pacing (Atrial) 24.69 % [facility] ICD-Percent Pacing (Vent) 20.79 % [facility] ICD-PMT Intervention ENABLED [facility] ICD-PVC Intervention ENABLED [facility] ICD-Rate Modulation Acceleration Reaction 30 s [facility] ICD-Rate Modulation Deceleration Exercise [facility] ICD-Rate Modulation Cache 3 [facility] ICD-Rate Modulation Threshold MediumHigh [facility] ICD-Shocks Aborted (Vent) 0 [facility] [id number] 0 [facility] ICD-SHOCKSABORTED [address] [facility] ICD-SHOCKSDELIVEREDVEN TRICULAR 0 [facility] ICD-Ventricular Fibrillation 0 [facility] Implant Date 07/03/2005 [facility] Implant Date 11/30/2002 [facility] Lead Impedance (LV) 4047 ohm [facility] Lead Impedance (RV) 836 ohm [facility] Lead Impedance High Voltage 54 ohm [facility] Lead1 Mfg MDT [facility] Lead2 Mfg MDT [facility] Lead3 Mfg GDT [facility] Location LV [facility] Location RA [facility] Location RV [facility] Lower Rate (bpm) 60 {beats}/min [facility] LV PACING % 0 % [facility] Max Sensor Rate (bpm) 90 {beats}/min [facility] MDT_PROG_TACHY_ZONE_DE TECTIONS_STATUS ENABLED [facility] Model [id number] Viva XT PATTERNMAKER METAL BENCH-D [facility] Model 4196 Attain Ability MRI SureScan [facility] Model 5076 CapSureFix Novus [facility] Model 0144 [employer] [facility] Pacing Mode DDDR [facility] Serial Number [id number] [facility] Serial Number [id number] [facility] Serial Number [id number] [facility] Serial Number [id number] [facility] Test Charge Energy 18 J [facility] Test Charge Time 4.324 [facility] Therapy Status (Vent) Enabled [facility] Thresh RA Capture Amplitude (volts) 0.625 V [facility] Thresh RA Capture Duration (ms) 0.4 ms [facility] Thresh RA Sensing Amplitude (mvolts) 2 mV [facility] Thresh RV Capture Amplitude (VOLTS) 1.375 V [facility] Thresh RV Capture Duration (MS) 0.4 ms [facility] Thresh RV Sensing Amplitude (MVOLTS) 10.125 mV [facility] Tracking Rate (bpm) 90 {beats}/min [facility] VF Zone Detection Interval 450 ms [facility] VF Zone Therapy Configuration 2 ATP(s) + 0 Shock(s) [facility] No Panel Informationon 01-14 BLANK _ [facility] ICD-ATRIALTACHYCARDIA 0 [facility] ICD-Fast Ventricular Tachycardia 0 [facility] Implant Date 09/23/2016 [facility] Prothrombin Time INRon 12-23 INR Coag (PPP) [Relative time] 3.3 {INR} [facility] Other Prothrombin Time INR [facility] [employer] Other Prothrombin Time INRon 12-09 INR Coag (PPP) [Relative time] 1.2 {INR} [facility] Other Prothrombin Time INR [facility] [employer] Other Office Visit (Cardiology)on 12-05-2021 Follow-up visit [...] Lab Procedures; Status:Active - Retrospective Authorization; Requested for:[id number]; Atrial flutter, unspecified type, Pre-operative cardiovascular examination Complete Blood Count + Differential; Status:Active - Retrospective Authorization; Requested for:[id number]; Complete Blood Count; Status:Active - Retrospective Authorization; [...] Dr. Hoskins for possible ablation. Seen at [facility] 11/04/2021 Adult Risk Screening Initial Fall Risk Screening: ESSENCE has not fallen in the last 6 months. Tobacco Screening: ESSENCE does not use tobacco. Blood Pressure monitoring Blood Pressure Controlled, Systolic <130 mm Hg Blood Pressure Controlled, Diastolic < 80mm Hg History of Present Illness She is referred by Dr. Hoskins for evaluation for ablation of atrial flutter. She has remote history of SC , cardiogenic shock, PCI circumflex and iABP, with persistent severe LV dysfunction. She later occluded her cicumflex. Years later, she had HF and severe MR and underwent mitral valve repair at [facility]. She had recurrent VT and atrial arrhythmias, and underwent several ablations and repeat percutaneous MVR at [facility]. After her MVR and ablation in [...] syncope, palpitat (more content not included)... Normal [employer] Tobacco Screening.on 022 Fall risk assessment a) No falls within the last year [facility] [employer] DO Work Phone: Tobacco use status CP b) No [facility] [employer] DO Work Phone: Tobacco Screening. Yes [facility] [employer] DO Work Phone: Prothrombin Time INRon 11-19 INR Coag (PPP) [Relative time] 1.59 {INR} [facility] [employer] Other Prothrombin Time INR [facility] [employer] Other Prothrombin Time INRon 11-11 INR Coag (PPP) [Relative time] 2.2 {INR} [employer] Other [facility]rombin Time [facility] [employer] Other Prothrombin Time INRon 11-04 INR Coag (PPP) [Relative time] 1.1 {INR} [employer] Other Prothrombin Time INR [facility] [employer] Other Prothrombin Time INRon 10-29 INR Coag (PPP) [Relative time] 1.22 {INR} [employer] Other Prothrombin Time INR [facility] [employer] Other Prothrombin Time INRon 10-23 INR Coag (PPP) [Relative time] 1.29 {INR} [employer] Other Prothrombin Time INR [facility] [employer] Other Activated partial thrombopla stin time (aPTT) in platelet poor plasma by coagulation aon 10-13-2021 aPTT Coag (PPP) [Time] 31.8 s 25.1-36.5 Fi [facility] Amphetamine Screen Ql (U)on 10-13-2021 Amphetamines Ql (U) Negative Negative [facility] Automated erythrocytes count in urine sediment (number/area)on 10-13-2021 RBC Auto (Urine sed) [#/Area] 1-2 [HPF] [facility] Automated leukocytes count i n urine sediment (number/area)on 10-13-2021 WBC Auto (Urine sed) [#/Area] 20-49 [HPF] [facility] Automated urine hyaline cast s count (number/volume)on 10-13-2021 Hyaline casts Auto (U) [#/Vol] None seen [LPF] [facility] Barbiturates [Presence] in U rineon 10-13-2021 Barbiturates Ql (U) Negative Negative [facility] Basophils Auto (Bld) [#/Vol] on 10-13-2021 Basophils (Bld) [#/Vol] 0.1 10*3/uL 0.0-0.2 [facility] Basophils/100 WBC Auto (Bld) on 10-13-2021 Basophils/100 WBC (Bld) 0.9 % [facility] Benzodiazepines [Presence] i n Urineon 10-13-2021 Benzodiazepines Ql (U) Negative Negative [facility] Bilirubin Test strip Ql (U)o n 10-13-2021 Bilirubin Ql (U) Negative Negative [facility] Blood anisocytosis detection on 10-13-2021 Anisocytosis Ql (Bld) Marked [facility] Blood hemoglobin measurement (mass/volume)on 10-13-2021 Hemoglobin (Bld) [Mass/Vol] 11.7 g/dL 11.8-15.4 [facility] Blood leukocytes automated c ount (number/volume)on 10-13-2021 WBC (Bld) [#/Vol] 11.4 10*3/uL 4.5-11.0 [facility] Blood polychromasia detectio n by light microscopyon 10-13-2021 Polychromasia LM Ql (Bld) Slight [facility] Body fluid albumin measureme nt (mass/volume)on 10-13-2021 Albumin (Body fld) [Mass/Vol] 3.0 g/dL 3.2-5.5 [facility] COVID-19 SOFIAon 10-13-2021 SARS-CoV+SARS-CoV-2 (COVID-19) Ag IA.rapid Ql (Resp) Negative Negative [facility] Comment on above: This is a duplicate Maranda SARS Antigen (CAIT) result to be used for statistical tracking purpose only. Cannabinoids [Presence] in U rine by Screen methodon 10-13-2021 Cannabinoids Screen Ql (U) Positive Negative [facility] Comment on above: These are unconfirme d results and should not be used for legal purposes. Drug Cut-Off Concentration: AMPH 1000 ng/mL ALESSANDRO 200 ng/mL RHINA 200 ng/mL COCM 300 ng/mL OP 300 ng/mL PCP 25 ng/mL THC 20 ng/mL Casts typing in urine sedime nt by light microscopyon 10-13-2021 Casts LM Nom (Urine sed) None seen [LPF] None Seen [facility] Color Auto (U)on 10-13-2021 Color (U) Yellow Yellow [facility] Creatine kinase [Enzymatic a ctivity/volume] in Serum or Plasmaon 10-13-2021 CK [Catalytic activity/Vol] 61 U/L 22-269 [facility] Creatinine and Glomerular fi ltration rate.predicted panel (S/P/Bld)on 10-13-2021 Creatinine [Mass/Vol] 3.62 mg/dL 0.44-1.03 [facility] Digoxin [Mass/volume] in Ser um or Plasmaon 10-13-2021 Digoxin [Mass/Vol] 8.7 ng/mL 0.9-2.0 [facility] Comment on above: Critical valueresult calledat 1837 on 10/13/21Last dose: - Eosinophils Auto (Bld) [#/Vo l]on 10-13-2021 Eosinophils (Bld) [#/Vol] 0.0 10*3/uL 0.0-0.45 [facility] Eosinophils/100 WBC Auto (Bl d)on 10-13-2021 Eosinophils/100 WBC (Bld) 0.0 % [facility] Erythrocyte distribution wid th Auto (RBC) [Ratio]on 10-13-2021 Erythrocyte distribution width (RBC) [Ratio] 23.1 % 11.9-15.3 [facility] Estimated glomerular filtrat ion rate (GFR) non- Americanon 10-13-2021 GFR/1.73 sq M.predicted among non-blacks MDRD (S/P/Bld) [Vol rate/Area] 13 mL/Min [facility] Globulin Calc (S) [Mass/Vol] on 10-13-2021 Globulin (S) [Mass/Vol] 3.2 g/dL [facility] Haptoglobin [Mass/volume] in Serum or Plasmaon 10-13-2021 Haptoglobin [Mass/Vol] 175 mg/dL 37-246 [facility] Hematocrit Auto (Bld) [Volum e fraction]on 10-13-2021 Hematocrit (Bld) [Volume fraction] 38.3 % 34.0-46.4 [facility] Hypochromia detectionon - Hypochromia Ql (Bld) Slight [facility] Ketones Auto test strip (U) [Mass/Vol]on 10-13-2021 Ketones (U) [Mass/Vol] Negative Negative Fi [facility] Laboratory - Chemistry and C hemistry - challengeon 10-13-2021 Natriuretic peptide B (Bld) [Mass/Vol] 279.0 pg/mL 5-100 [facility] Laboratory - Coagulationon 0 10-13-2021 PT Coag (PPP) [Time] 23.0 s 9.0-12.9 [facility] Laboratory - Drug toxicology on 10-13-2021 Opiates Ql (U) Negative Negative [facility] Laboratory - Hematology and Cell countson 10-13-2021 Nucleated RBC/100 WBC (Bld) [Ratio] 0.1 % 0-0.5 [facility] Lactate dehydrogenase measur ement (enzymatic activity/volume)on 10-13-2021 LDH (Unsp spec) [Catalytic activity/Vol] 310 U/L 45-190 [facility] Lymphocytes Auto (Bld) [#/Vo l]on 10-13-2021 Lymphocytes (Bld) [#/Vol] 1.1 10*3/uL 1.00-4.8 [facility] Lymphocytes/100 WBC Auto (Bl d)on 10-13-2021 Lymphocytes/100 WBC (Bld) 9.5 % [facility] MCH Auto (RBC) [Entitic mass ]on 10-13-2021 MCH (RBC) [Entitic mass] 20.4 pg 24.7-34.3 [facility] MCHC Auto (RBC) [Mass/Vol]on 10-13-2021 MCHC (RBC) [Mass/Vol] 30.5 g/dL 32.0-35.0 [facility] MCV Auto (RBC) [Entitic vol] on 10-13-2021 MCV (RBC) [Entitic vol] 67.0 fL 80-100 [facility] Monocytes Auto (Bld) [#/Vol] on 10-13-2021 Monocytes (Bld) [#/Vol] 0.9 10*3/uL 0.0-0.8 [facility] Monocytes/100 WBC Auto (Bld) on 10-13-2021 Monocytes/100 WBC (Bld) 7.8 % [facility] Neutrophils Auto (Bld) [#/Vo l]on 10-13-2021 Neutrophils (Bld) [#/Vol] 9.3 10*3/uL 1.8-7.7 [facility] Neutrophils/100 WBC Auto (Bl d)on 10-13-2021 Neutrophils/100 WBC (Bld) 81.8 % [facility] Nitrite Test strip Ql (U)on 10-13-2021 Nitrite Ql (U) Negative Negative [facility] No Panel Informationon 10-13 Estimated GFR () 16 mL/Min [facility] Comment on above: GFR estimated refere nce range: According to KDOQI guidelines, <60 ml/min/1.73m2 is sufficient to diagnose a patient with chronic kidney disease. Microcytosis Moderate [facility] Pharmacy Creatinine Clearance (Chem 16.83 [facility] Platelet Estimate Decreased Normal [facility] Platelet Morphology Comment Normal Normal [facility] Schistocytes Slight [facility] Ovalocyte detectionon 2021 Ovalocytes LM Ql (Bld) Slight [facility] Phencyclidine Screen Ql (U)o n 10-13-2021 Phencyclidine Ql (U) Negative Negative [facility] Platelet mean volume Auto (B ld) [Entitic vol]on 10-13-2021 Platelet mean volume (Bld) [Entitic vol] 9.0 fL 6.3-10.7 [facility] Platelet poor plasma interna tional normalized ratio (INR) by coagulation assay (relaton 10-13-2021 INR Coag (PPP) [Relative time] 2.0 {INR} [facility] Comment on above: INR [...] 10-13-2021 Platelets (Bld) [#/Vol] 29 10*3/uL 150-450 [facility] Comment on above: Results calledat 151 0 on 10/13/21 Protein Auto test strip (U) [Mass/Vol]on 10-13-2021 Protein (U) [Mass/Vol] Negative Negative Fi [facility] Protein [Mass/volume] in Ser um or Plasmaon 10-13-2021 Protein [Mass/Vol] 6.2 g/dL 6.1-7.9 [facility] RBC Auto (Bld) [#/Vol]on RBC (Bld) [#/Vol] 5.72 10*6/uL 3.60-5.00 [facility] RBC morphologyon 10-13-2021 RBC morphology finding Nom (Bld) N/A [facility] Serum or plasma alanine hernandez otransferase measurement without P-5'-P (enzymatic activion 10-13-2021 ALT No additional P-5'-P [Catalytic activity/Vol] 12 U/L 10-60 [facility] Serum or plasma albumin/glob ulin mass ratioon 10-13-2021 Albumin/Globulin [Mass ratio] 0.9 {ratio} [facility] Serum or plasma alkaline rosanna sphatase measurement (enzymatic activity/volume)on 10-13-2021 ALP [Catalytic activity/Vol] 147 U/L 32-92 [facility] Serum or plasma aspartate am inotransferase measurement (enzymatic activity/volume)on 10-13-2021 AST [Catalytic activity/Vol] 26 U/L 10-42 [facility] Serum or plasma calcium jackie urement (mass/volume)on 10-13-2021 Calcium [Mass/Vol] 8.2 mg/dL 8.2-10.2 [facility] Serum or plasma chloride jose antonio surement (moles/volume)on 10-13-2021 Chloride [Moles/Vol] 91 mmol/L 95-114 [facility] Serum or plasma creatine kin ase MB (CKMB)/total creatine kinase (CK) ratio by calculaon 10-13-2021 CK.MB Calc [Catalytic fraction] 17.3 % 0.00-2.50 [facility] Serum or plasma creatine kin ase MB measurement (mass/volume)on 10-13-2021 CK.MB [Mass/Vol] 10.6 ng/mL 0.6-6.3 [facility] Serum or plasma glucose jackie urement (mass/volume)on 10-13-2021 Glucose [Mass/Vol] 98 mg/dL 70-100 [facility] Comment on above: ADA recommended refe rence rangeRandom Glucose Reference Range is dependent on time and content of last meal. Glucose of more than 200 mg/dL in a nonstressed, ambulatory subject supports the diagnosis of Diabetes Mellitus. Serum or plasma potassium me asurement (moles/volume)on 10-13-2021 Potassium [Moles/Vol] 3.3 mmol/L 3.5-5.1 [facility] Serum or plasma sodium measu rement (moles/volume)on 10-13-2021 Sodium [Moles/Vol] 130 mmol/L 136-146 [facility] Serum or plasma total biliru bin measurement (mass/volume)on 10-13-2021 Bilirubin [Mass/Vol] 0.6 mg/dL 0.3-1.2 [facility] Serum or plasma total carbon dioxide measurement (moles/volume)on 10-13-2021 CO2 [Moles/Vol] 23.0 mmol/L 22.0-30.0 [facility] Serum or plasma urea nitroge n measurement (mass/volume)on 10-13-2021 Urea nitrogen [Mass/Vol] 51 mg/dL 9-23 [facility] Specific gravity Auto test s trip (U) [Rel density]on 10-13-2021 Specific gravity (U) [Rel density] 1.007 1.001-1.03 0 [facility] Squamous epithelial cells de tection in urine sediment by light microscopyon 10-13-2021 Epithelial cells.squamous LM Ql (Urine sed) 10-19 [HPF] [facility] Teardrop cell detectionon Dacrocytes LM Ql (Bld) Slight [facility] Trichomonas vaginalis detect ion in urine sediment by light microscopyon 10-13-2021 T. vaginalis LM Ql (Urine sed) 3-4 [HPF] None Seen [facility] Troponin I.cardiac [Mass/vol ume] in Serum or Plasma by High sensitivity methodon 10-13-2021 Troponin I.cardiac High sensitivity method [Mass/Vol] 139 pg/mL 0-15 [facility] Comment on above: Critical valueresult calledat 1909 on 10/13/21 Urine bacteria detection by automated methodon 10-13-2021 Bacteria Auto Ql (U) None seen None Seen [facility] Urine clarity by refractomet ry automatedon 10-13-2021 Clarity Refractometry automated (U) Cloudy Clear [facility] Urine cocaine detectionon Cocaine Ql (U) Negative Negative [facility] Urine glucose measurement by automated test strip (mass/volume)on 10-13-2021 Glucose Auto test strip (U) [Mass/Vol] Normal mg/dL Normal [facility] Urine hemoglobin detection b y automated test stripon 10-13-2021 Hemoglobin Auto test strip Ql (U) Trace Negative [facility] Urine lactic acid measuremen ton 10-13-2021 Lactate (U) [Moles/Vol] 1.5 mmol/L [facility] Urine leukocyte esterase det ection by automated test stripon 10-13-2021 Leukocyte esterase Auto test strip Ql (U) 3+ Negative [facility] Urobilinogen Auto test strip (U) [Mass/Vol]on 10-13-2021 Urobilinogen (U) [Mass/Vol] Normal mg/dL Normal [facility] pH Auto test strip (U)on pH (U) 5.5 [pH] 5.0-9.0 [facility] Prothrombin Time INRon 09-04 Prothrombin Time INR 1.0 [facility] [employer] Other Prothrombin Time INRon 07-17 INR Coag (PPP) [Relative time] 2.0 {INR} [place] [employer] Other Prothrombin Time INR [facility] [employer] Other Prothrombin Time INRon 06-30 INR Coag (PPP) [Relative time] 4.4 {INR} [employer] Other Prothrombin Time INR [facility] [employer] Other Prothrombin Time INRon 06-09 INR Coag (PPP) [Relative time] 4.9 {INR} [employer] Other Prothrombin Time INR [facility] [employer] Other Laboratory - Coagulationon 0 12-23-2020 PT Coag (PPP) [Time] 314.1 s 9.0-12.9 [facility] Comment on above: Results calledat 111 7 on 12/23/20 Platelet poor plasma interna tional normalized ratio (INR) by coagulation assay (relaton 12-23-2020 INR Coag (PPP) [Relative time] 27.1 {INR} [facility] Comment on above: Results calledat [...] 11-25-2020 Basophils (Bld) [#/Vol] 0.1 10*3/uL 0.0-0.2 [facility] Basophils/100 WBC Auto (Bld) on 11-25-2020 Basophils/100 WBC (Bld) 1.7 % [facility] Blood anisocytosis detection on 11-25-2020 Anisocytosis Ql (Bld) Marked [facility] Blood hemoglobin measurement (mass/volume)on 11-25-2020 Hemoglobin (Bld) [Mass/Vol] 8.3 g/dL 11.8-15.4 [facility] Blood leukocytes automated c ount (number/volume)on 11-25-2020 WBC (Bld) [#/Vol] 8.5 10*3/uL 4.5-11.0 [facility] Blood polychromasia detectio n by light microscopyon 11-25-2020 Polychromasia LM Ql (Bld) Moderate [facility] Creatinine and Glomerular fi ltration rate.predicted panel (S/P/Bld)on 11-25-2020 Creatinine [Mass/Vol] 0.79 mg/dL 0.44-1.03 [facility] Eosinophils Auto (Bld) [#/Vo l]on 11-25-2020 Eosinophils (Bld) [#/Vol] 0.3 10*3/uL 0.0-0.45 [facility] Eosinophils/100 WBC Auto (Bl d)on 11-25-2020 Eosinophils/100 WBC (Bld) 3.3 % [facility] Erythrocyte distribution wid th Auto (RBC) [Ratio]on 11-25-2020 Erythrocyte distribution width (RBC) [Ratio] 21.0 % 11.9-15.3 [facility] GFR/1.73 sq M.predicted emily g non-blacks MDRD (S/P/Bld) [Vol rate/Area]on 11-25-2020 GFR/1.73 sq M predicted among non-blacks MDRD (S/P/Bld) [Vol rate/Area] > 60 mL/Min [facility] HCG ( test) IA.rapi d Ql (U)on 11-25-2020 HCG ( test) Ql (U) Negative [facility] Hematocrit Auto (Bld) [Volum e fraction]on 11-25-2020 Hematocrit (Bld) [Volume fraction] 26.3 % 34.0-46.4 [facility] Hematologyon 11-25-2020 PT Coag (PPP) [Time] 13.6 s 9.0-12.9 [facility] Platelets (Bld) [#/Vol] Normal Normal [facility] Hypochromia detectionon 10-29 Hypochromia Ql (Bld) Moderate [facility] Lymphocytes Auto (Bld) [#/Vo l]on 11-25-2020 Lymphocytes (Bld) [#/Vol] 1.9 10*3/uL 1.00-4.8 [facility] Lymphocytes/100 WBC Auto (Bl d)on 11-25-2020 Lymphocytes/100 WBC (Bld) 22.6 % [facility] MCH Auto (RBC) [Entitic mass ]on 11-25-2020 MCH (RBC) [Entitic mass] 21.5 pg 24.7-34.3 [facility] MCHC Auto (RBC) [Mass/Vol]on 11-25-2020 MCHC (RBC) [Mass/Vol] 31.5 g/dL 32.0-35.0 [facility] MCV Auto (RBC) [Entitic vol] on 11-25-2020 MCV (RBC) [Entitic vol] 68.2 fL 80-100 [facility] Monocytes Auto (Bld) [#/Vol] on 11-25-2020 Monocytes (Bld) [#/Vol] 0.8 10*3/uL 0.0-0.8 [facility] Monocytes/100 WBC Auto (Bld) on 11-25-2020 Monocytes/100 WBC (Bld) 8.8 % [facility] Neutrophils Auto (Bld) [#/Vo l]on 11-25-2020 Neutrophils (Bld) [#/Vol] 5.4 10*3/uL 1.8-7.7 [facility] Neutrophils/100 WBC Auto (Bl d)on 11-25-2020 Neutrophils/100 WBC (Bld) 63.6 % [facility] No Panel Informationon 11-25 Estimated GFR () > 60 mL/Min [facility] Comment on above: GFR estimated refere nce range: According to KDOQI guidelines, <60 ml/min/1.73m2 is sufficient to diagnose a patient with chronic kidney disease. Platelet Estimate Normal Normal [facility] Otheron 11-25-2020 GFR/1.73 sq M.predicted MDRD (S/P/Bld) [Vol rate/Area] > 60 mL/Min [facility] Comment on above: GFR estimated refere nce range: According to KDOQI guidelines, <60 ml/min/1.73m2 is sufficient to diagnose a patient with chronic kidney disease. Microcytosis Moderate [facility] Nucleated RBC/100 WBC (Bld) [Ratio] 0.2 % 0-0.5 [facility] Creatinine Clearance (Chem 84.61 [facility] Platelet Morphology Comment Normal Normal [facility] Poikilocytosis Slight [facility] Schistocytes Slight [facility] Ovalocyte detectionon 2020 Ovalocytes LM Ql (Bld) Slight [facility] Plate[facility] mean volume Auto (B ld) [Entitic vol]on 11-25-2020 Platelet mean volume (Bld) [Entitic vol] 8.8 fL 6.3-10.7 [facility] Platelet poor plasma interna tional normalized ratio (INR) by coagulation assay (relaton 11-25-2020 INR Coag (PPP) [Relative time] 1.2 {INR} [facility] Comment on above: INR [...] 11-25-2020 Platelets (Bld) [#/Vol] 318 10*3/uL 150-450 [facility] RBC Auto (Bld) [#/Vol]on RBC (Bld) [#/Vol] 3.85 10*6/uL 3.60-5.00 [facility] RBC morphologyon 11-25-2020 RBC morphology finding Nom (Bld) N/A [facility] Serum or plasma calcium jackie urement (mass/volume)on 11-25-2020 Calcium [Mass/Vol] 8.6 mg/dL 8.2-10.2 [facility] Serum or plasma chloride jose antonio surement (moles/volume)on 11-25-2020 Chloride [Moles/Vol] 102 mmol/L 95-114 [facility] Serum or plasma glucose jackie urement (mass/volume)on 11-25-2020 Glucose [Mass/Vol] 87 mg/dL 70-100 [facility] Comment on above: ADA recommended refe rence rangeRandom Glucose Reference Range is dependent on time and content of last meal. Glucose of more than 200 mg/dL in a nonstressed, ambulatory subject supports the diagnosis of Diabetes Mellitus. Serum or plasma potassium me asurement (moles/volume)on 11-25-2020 Potassium [Moles/Vol] 3.9 mmol/L 3.5-5.1 [facility] Serum or plasma sodium measu rement (moles/volume)on 11-25-2020 Sodium [Moles/Vol] 135 mmol/L 136-146 [facility] Serum or plasma total carbon dioxide measurement (moles/volume)on 11-25-2020 CO2 [Moles/Vol] 22.7 mmol/L 22.0-30.0 [facility] Serum or plasma urea nitroge n measurement (mass/volume)on 11-25-2020 Urea nitrogen [Mass/Vol] 8 mg/dL 9-23 [facility] Target cellson 11-25-2020 Target cells LM Ql (Bld) Slight [facility] Urine human chorionic gonado tropin (hCG) detection by immunoassayon 11-25-2020 HCG ( test) Ql (U) Negative [facility] Creatine kinase [Enzymatic a ctivity/volume] in Serum or Plasmaon 11-24-2020 CK [Catalytic activity/Vol] 54 U/L 22-269 [facility] Otheron 11-24-2020 CBC Comment See comment [facility] Comment on above: There is significant microcytosis which suggests the possibility of iron deficiency. Consider serum ferritin and iron studies. Serum or plasma cardiac trop onin I measurement (mass/volume)on 11-24-2020 Troponin I.cardiac [Mass/Vol] ng/mL 0-0.02 [facility] Comment on above: ELLA SC Cut off value > or equal to 0.03 ng/mL in conjunction with clinical conditions of myocardial infarction.([email or web address]) Troponin I.cardiac [Mass/Vol] ng/mL 0-0.02 [facility] Comment on above: ELLA SC Cut off value > or equal to 0.03 ng/mL in conjunction with clinical conditions of myocardial infarction.([email or web address]) Serum or plasma creatine kin ase MB (CKMB)/total creatine kinase (CK) ratio by calculaon 11-24-2020 CK.MB Calc [Catalytic fraction] 3.8 % 0.00-2.50 [facility] Serum or plasma creatine kin ase MB measurement (mass/volume)on 11-24-2020 CK.MB [Mass/Vol] 2.1 ng/mL 0.6-6.3 [facility] Teardrop cell detectionon Dacrocytes LM Ql (Bld) Rare Fi [facility] Activated partial thrombopla stin time (aPTT) in platelet poor plasma by coagulation aon 11-23-2020 aPTT Coag (PPP) [Time] 92.8 s 25.1-36.5 Fi [facility] Comment on above: Critical valueresult calledat 1511 on 11/23/20 Automated basophil %on 11-23 Basophils/100 WBC (Bld) 1.1 % [facility] Automated basophil counton 0 11-23-2020 Basophils (Bld) [#/Vol] 0.2 10*3/uL 0.0-0.2 [facility] Automated blood lymphocyte c ount (number/volume)on 11-23-2020 Lymphocytes (Bld) [#/Vol] 1.5 10*3/uL 1.00-4.8 [facility] Automated blood lymphocyte c ount as percentage of total leukocyteson 11-23-2020 Lymphocytes/100 WBC (Bld) 10.4 % [facility] Automated blood monocyte cou nton 11-23-2020 Monocytes (Bld) [#/Vol] 1.5 10*3/uL 0.0-0.8 [facility] Automated blood platelet cou nt (count/volume)on 11-23-2020 Platelets (Bld) [#/Vol] 327 10*3/uL 150-450 [facility] Automated blood platelet jose antonio n volume measurementon 11-23-2020 Platelet mean volume (Bld) [Entitic vol] 8.1 fL 6.3-10.7 [facility] Automated eosinophil %on Eosinophils/100 WBC (Bld) 1.5 % [facility] Automated eosinophil counton 11-23-2020 Eosinophils (Bld) [#/Vol] 0.2 10*3/uL 0.0-0.45 [facility] Automated erythrocyte distri bution width ratioon 11-23-2020 Erythrocyte distribution width (RBC) [Ratio] 21.1 % 11.9-15.3 [facility] Automated erythrocyte mean c orpuscular hemoglobin (mass per erythrocyte)on 11-23-2020 MCH (RBC) [Entitic mass] 21.2 pg 24.7-34.3 [facility] Automated erythrocyte mean c orpuscular hemoglobin concentration measurement (mass/volon 11-23-2020 MCHC (RBC) [Mass/Vol] 31.0 g/dL 32.0-35.0 [facility] Automated erythrocyte mean c orpuscular volumeon 11-23-2020 MCV (RBC) [Entitic vol] 68.4 fL 80-100 [facility] Automated erythrocytes count in urine sediment (number/area)on 11-23-2020 RBC Auto (Urine sed) [#/Area] 20-49 [HPF] [facility] Automated leukocytes count i n urine sediment (number/area)on 11-23-2020 WBC Auto (Urine sed) [#/Area] 50-100 [HPF] [facility] Automated monocyte %on 11-23 Monocytes/100 WBC (Bld) 9.8 % [facility] Automated neutrophil %on Neutrophils/100 WBC (Bld) 77.2 % [facility] Bilirubin Test strip Ql (U)o n 11-23-2020 Bilirubin Ql (U) Negative Negative [facility] Blood anisocytosis detection on 11-23-2020 Anisocytosis Ql (Bld) Moderate [facility] Blood erythrocytes automated count (number/volume)on 11-23-2020 RBC (Bld) [#/Vol] 3.91 10*6/uL 3.60-5.00 [facility] Blood hemoglobin measurement (mass/volume)on 11-23-2020 Hemoglobin (Bld) [Mass/Vol] 8.3 g/dL 11.8-15.4 [facility] Blood leukocytes automated c ount (number/volume)on 11-23-2020 WBC (Bld) [#/Vol] 14.9 10*3/uL 4.5-11.0 [facility] Blood neutrophil count by au tomated method (number/volume)on 11-23-2020 Neutrophils (Bld) [#/Vol] 11.5 10*3/uL 1.8-7.7 [facility] Blood polychromasia detectio n by light microscopyon 11-23-2020 Polychromasia LM Ql (Bld) Slight [facility] COVID-19 Positive/Negativeon 11-23-2020 COVID-19 Positive/Negative Negative Negative [facility] Comment on above: Reference: NegativeT esting for SARS-CoV-2 by RT-PCRThis test was developed and its performance characteristics determined by [employer] ([employer]) and validated at the [facility]. This test has not been FDA cleared [...] N gene ADITI+probe Ql (Resp) Negative Negative [facility] Comment on above: Reference: NegativeT esting for SARS-CoV-2 by RT-PCRThis test was developed and its performance characteristics determined by [employer] and validated at the [facility]. This test has not been FDA cleared [...] COVID-19 SOFIAon 11-23-2020 COVID-19 MARANDA Negative Negative [facility] Comment on above: This is a duplicate Maranda SARS Antigen (CAIT) result to be used for statistical tracking purpose only. SARS-CoV+SARS-CoV-2 (COVID-19) Ag IA.rapid Ql (Resp) Negative Negative [facility] Comment on above: This is a duplicate Maranda SARS Antigen (CAIT) result to be used for statistical tracking purpose only. CT biopsyon 11-23-2020 Transferrin [Mass/Vol] 321 mg/dL 180-380 [facility]2020 Natriuretic peptide B (Bld) [Mass/Vol] 859.0 pg/mL 5-100 [facility] Color Auto (U)on 11-23-2020 Color (U) Yellow Yellow [facility] Creatine kinase [Enzymatic a ctivity/volume] in Serum or Plasmaon 11-23-2020 CK [Catalytic activity/Vol] 66 U/L 22-269 [facility] Estimated glomerular filtrat ion rate (GFR) non- Americanon 11-23-2020 GFR/1.73 sq M predicted among non-blacks MDRD (S/P/Bld) [Vol rate/Area] > 60 mL/Min [facility] Ferritin [Mass/volume] in Se rum or Plasmaon 11-23-2020 Ferritin [Mass/Vol] 39.9 ng/mL 11-306.8 [facility] Folate [Mass/volume] in Seru m or Plasmaon 11-23-2020 Folate [Mass/Vol] ng/mL >5.9 [facility] Comment on above: Folate reference ran ge: >5.9 ng/mlThe WHO technical consultation on folate and vitamin [id number] has determined that folate concentrations lessthan 4 ng/ml are considered deficient. Folate [Mass/Vol] ng/mL >5.9 [facility] Comment on above: Folate reference ran ge: >5.9 ng/mlThe WHO technical consultation on folate and vitamin [id number] has determined that folate concentrations lessthan 4 ng/ml are considered deficient. Hematocrit [Volume Fraction] of Blood by Automated counton 11-23-2020 Hematocrit (Bld) [Volume fraction] 26.7 % 34.0-46.4 [facility] Hematologyon 11-23-2020 Platelets (Bld) [#/Vol] Normal Normal [facility] PT Coag (PPP) [Time] 189.6 s 9.0-12.9 [facility] Hypochromia detectionon 10-29 Hypochromia Ql (Bld) Moderate [facility] Iron [Mass/volume] in Serum or Plasmaon 11-23-2020 Iron [Mass/Vol] 19 ug/dL 40-150 [facility] Iron binding capacity [Mass/ volume] in Serum or Plasmaon 11-23-2020 Iron binding capacity [Mass/Vol] 449 ug/dL 255-450 [facility] Iron saturation [Mass Fracti on] in Serum or Plasmaon 11-23-2020 Iron saturation [Mass fraction] 4.0 % 20-50 [facility] Ketones Auto test strip (U) [Mass/Vol]on 11-23-2020 Ketones (U) [Mass/Vol] Negative Negative [facility] - Microbiology an d Antimicrobial susceptibilityon 11-23-2020 SARS-CoV-2 (COVID-19) RNA ADITI+probe Ql (Unsp spec) N/A [facility] Metabolic Panelon 11-23-2020 Magnesium [Mass/Vol] 1.8 mg/dL 1.6-2.6 [facility] Nitrite Test strip Ql (U)on 11-23-2020 Nitrite Ql (U) Positive Negative [facility] Otheron 11-23-2020 Absolute Reticulocyte Count 0.104 10*6/uL 0.024-0.08 4 [facility] Cobalamin (Vitamin B12) [Mass/Vol] 275 pg/mL 180-914 [facility] Percent Reticulocyte Count 2.6 % 0.5-1.5 [facility] Coronavirus 2019 PCR Interp N/A [facility] SARS Antigen (LFIA) On License Of [facility] Crenated Cell Slight [facility] GFR/1.73 sq M.predicted MDRD (S/P/Bld) [Vol rate/Area] > 60 mL/Min [facility] Comment on above: GFR estimated refere nce range: According to KDOQI guidelines, <60 ml/min/1.73m2 is sufficient to diagnose a patient with chronic kidney disease. Microcytosis Moderate [facility] Nucleated RBC/100 WBC (Bld) [Ratio] 0.1 % 0-0.5 [facility] Creatinine Clearance (Chem 74.80 [facility] Platelet Morphology Comment Normal Normal [facility] Poikilocytosis Slight [facility] Schistocytes Rare [facility] Ovalocyte detectionon 2020 Ovalocytes LM Ql (Bld) Slight [facility] Plate[facility] poor plasma interna tional normalized ratio (INR) by coagulation assay (relaton 11-23-2020 INR Coag (PPP) [Relative time] 16.6 {INR} [facility] Comment on above: Critical valueresult [...] 11-23-2020 Protein (U) [Mass/Vol] Negative Negative Fi [facility] RBC morphologyon 11-23-2020 RBC morphology finding Nom (Bld) N/A [facility] Serum or plasma calcium jackie urement (mass/volume)on 11-23-2020 Calcium [Mass/Vol] 8.4 mg/dL 8.2-10.2 [facility] Serum or plasma cardiac trop onin I measurement (mass/volume)on 11-23-2020 Troponin I.cardiac [Mass/Vol] ng/mL 0-0.02 [facility] Comment on above: ELLA SC Cut off value > or equal to 0.03 ng/mL in conjunction with clinical conditions of myocardial infarction.([email or web address]) Serum or plasma chloride jose antonio surement (moles/volume)on 11-23-2020 Chloride [Moles/Vol] 104 mmol/L 95-114 [facility] Serum or plasma creatine kin ase MB (CKMB)/total creatine kinase (CK) ratio by calculaon 11-23-2020 CK.MB Calc [Catalytic fraction] 2.8 % 0.00-2.50 [facility] Serum or plasma creatine kin ase MB measurement (mass/volume)on 11-23-2020 CK.MB [Mass/Vol] 1.9 ng/mL 0.6-6.3 [facility] Serum or plasma creatinine m easurement with calculation of estimated glomerular filtron 11-23-2020 Creatinine [Mass/Vol] 0.83 mg/dL 0.44-1.03 [facility] Serum or plasma glucose jackie urement (mass/volume)on 11-23-2020 Glucose [Mass/Vol] 126 mg/dL 70-100 [facility] Comment on above: ADA recommended refe rence rangeRandom Glucose Reference Range is dependent on time and content of last meal. Glucose of more than 200 mg/dL in a nonstressed, ambulatory subject supports the diagnosis of Diabetes Mellitus. Serum or plasma potassium me asurement (moles/volume)on 11-23-2020 Potassium [Moles/Vol] 3.8 mmol/L 3.5-5.1 [facility] Serum or plasma sodium measu rement (moles/volume)on 11-23-2020 Sodium [Moles/Vol] 135 mmol/L 136-146 [facility] Serum or plasma total carbon dioxide measurement (moles/volume)on 11-23-2020 CO2 [Moles/Vol] 22.0 mmol/L 22.0-30.0 [facility] Serum or plasma urea nitroge n measurement (mass/volume)on 11-23-2020 Urea nitrogen [Mass/Vol] 9 mg/dL 05-22 [facility] Specific gravity Auto test s trip (U) [Rel density]on 11-23-2020 Specific gravity (U) [Rel density] 1.007 1.001-1.03 0 [facility] Squamous epithelial cells de tection in urine sediment by light microscopyon 11-23-2020 Epithelial cells.squamous LM Ql (Urine sed) 3-4 [HPF] [facility] Target cellson 11-23-2020 Target cells LM Ql (Bld) Slight [facility] Teardrop cell detectionon Dacrocytes LM Ql (Bld) Rare [facility] Urinalysison 11-23-2020 Hyaline casts LM Ql (Urine sed) 0-8 [LPF] [facility] Urine bacteria detection by automated methodon 11-23-2020 Bacteria Auto Ql (U) 4+ None Seen [facility] Urine clarity by refractomet ry automatedon 11-23-2020 Clarity Refractometry automated (U) Clear Clear [facility] Urine culture routineon 10-29 Bacteria identified Cx Nom (U) Escherichia coli [facility] Urine glucose measurement by automated test strip (mass/volume)on 11-23-2020 Glucose Auto test strip (U) [Mass/Vol] Normal mg/dL Normal [facility] Urine hemoglobin detection b y automated test stripon 11-23-2020 Hemoglobin Auto test strip Ql (U) 3+ Negative [facility] Urine ketones measurement by automated test strip (mass/volume)on 11-23-2020 Ketones (U) [Mass/Vol] Negative Negative [facility] Urine leukocyte esterase det ection by automated test stripon 11-23-2020 Leukocyte esterase Auto test strip Ql (U) 4+ Negative [facility] Urine nitrite detection by t est stripon 11-23-2020 Nitrite Ql (U) Positive Negative [facility] Urine protein measurement by automated test strip (mass/volume)on 11-23-2020 Protein (U) [Mass/Vol] Negative Negative [facility] Urine total bilirubin detect ion by test stripon 11-23-2020 Bilirubin Ql (U) Negative Negative [facility] Urobilinogen Auto test strip (U) [Mass/Vol]on 11-23-2020 Urobilinogen (U) [Mass/Vol] Normal mg/dL Normal [facility] pH Auto test strip (U)on pH (U) 6.5 [pH] 5.0-9.0 [facility] Activated partial thrombopla stin time (aPTT) in platelet poor plasma by coagulation aon 08-16-2020 aPTT Coag (PPP) [Time] 55.8 s 23.0-35.0 [facility] Automated basophil %on 08-16 Basophils/100 WBC (Bld) 0.9 % [facility] Automated basophil counton 1 10-17-2019 Basophils (Bld) [#/Vol] 0.1 10*3/uL 0.0-0.2 [facility] Automated blood lymphocyte c ount (number/volume)on 08-16-2020 Lymphocytes (Bld) [#/Vol] 1.6 10*3/uL 1.00-4.8 [facility] Automated blood lymphocyte c ount as percentage of total leukocyteson 08-16-2020 Lymphocytes/100 WBC (Bld) 17.3 % [facility] Automated blood monocyte cou nton 08-16-2020 Monocytes (Bld) [#/Vol] 0.7 10*3/uL 0.0-0.8 [facility] Automated blood platelet cou nt (count/volume)on 08-16-2020 Platelets (Bld) [#/Vol] 305 10*3/uL 150-450 [facility] Automated blood platelet jose antonio n volume measurementon 08-16-2020 Platelet mean volume (Bld) [Entitic vol] 9.1 fL 6.3-10.7 [facility] Automated eosinophil %on Eosinophils/100 WBC (Bld) 1.6 % [facility] Automated eosinophil counton 08-16-2020 Eosinophils (Bld) [#/Vol] 0.1 10*3/uL 0.0-0.45 [facility] Automated erythrocyte distri bution width ratioon 08-16-2020 Erythrocyte distribution width (RBC) [Ratio] 18.8 % 11.9-15.3 [facility] Automated erythrocyte mean c orpuscular hemoglobin (mass per erythrocyte)on 08-16-2020 MCH (RBC) [Entitic mass] 23.9 pg 24.7-34.3 [facility] Automated erythrocyte mean c orpuscular hemoglobin concentration measurement (mass/volon 08-16-2020 MCHC (RBC) [Mass/Vol] 31.1 g/dL 32.0-35.0 [facility] Automated erythrocyte mean c orpuscular volumeon 08-16-2020 MCV (RBC) [Entitic vol] 76.9 fL 80-100 [facility] Automated erythrocytes count in urine sediment (number/area)on 08-16-2020 RBC Auto (Urine sed) [#/Area] 10-19 [HPF] [facility] Automated leukocytes count i n urine sediment (number/area)on 08-16-2020 WBC Auto (Urine sed) [#/Area] Innumerable [HPF] [facility] Automated monocyte %on 08-16 Monocytes/100 WBC (Bld) 7.6 % [facility] Automated neutrophil %on Neutrophils/100 WBC (Bld) 72.6 % [facility] Automated urine color determ inationon 08-16-2020 Color (U) Yellow Yellow [facility] Automated urine hyaline cast s count (number/volume)on 08-16-2020 Hyaline casts Auto (U) [#/Vol] None seen [LPF] [facility] Blood erythrocytes automated count (number/volume)on 08-16-2020 RBC (Bld) [#/Vol] 4.45 10*6/uL 3.60-5.00 [facility] Blood hemoglobin measurement (mass/volume)on 08-16-2020 Hemoglobin (Bld) [Mass/Vol] 10.7 g/dL 11.8-15.4 [facility] Blood leukocytes automated c ount (number/volume)on 08-16-2020 WBC (Bld) [#/Vol] 9.1 10*3/uL 3.8-11.6 [facility] Blood neutrophil count by au tomated method (number/volume)on 08-16-2020 Neutrophils (Bld) [#/Vol] 6.6 10*3/uL 1.8-7.7 [facility] COVID-19 Detected/Not Detect edon 08-16-2020 COVID-19 Detected/Not Detected Not detected Not Detecte [facility] Comment on above: This is a duplicate test result based off of the RP2.1 COVID (EUA) test performed within the Microbiology department. [facility] 08-16-2020 Natriuretic peptide B (Bld) [Mass/Vol] 1123.0 pg/mL 5-100 [facility] Casts typing in urine sedime nt by light microscopyon 08-16-2020 Casts LM Nom (Urine sed) None seen [LPF] None Seen [facility] Creatine kinase [Enzymatic a ctivity/volume] in Serum or Plasmaon 08-16-2020 CK [Catalytic activity/Vol] 72 U/L 22-269 [facility] Estimated glomerular filtrat ion rate (GFR) non- Americanon 08-16-2020 GFR/1.73 sq M predicted among non-blacks MDRD (S/P/Bld) [Vol rate/Area] 56 mL/min/{1.73_m2} [facility] Hematocrit [Volume Fraction] of Blood by Automated counton 08-16-2020 Hematocrit (Bld) [Volume fraction] 34.2 % 34.0-46.4 [facility] Hematologyon 08-16-2020 PT Coag (PPP) [Time] 144.3 s 9.0-12.9 [facility] PT Coag (PPP) [Time] 132.6 s 9.0-12.9 [facility] Lactate dehydrogenase measur ement (enzymatic activity/volume)on 08-16-2020 LDH (Unsp spec) [Catalytic activity/Vol] 268 U/L 45-190 [facility] Metabolic Panelon 08-16-2020 Magnesium [Mass/Vol] 1.8 mg/dL 1.6-2.6 [facility] Otheron 08-16-2020 Respiratory Panel (PCR) [facility] D-Dimer Quantitative (PE/DVT) < 200 ng/mL 0-243 [facility] Comment on above: The reference [...] sq M.predicted MDRD (S/P/Bld) [Vol rate/Area] mL/min/{1.73_m2} [facility] Comment on above: GFR estimated refere nce range: According to KDOQI guidelines, <60 ml/min/1.73m2 is sufficient to diagnose a patient with chronic kidney disease. Nucleated RBC/100 WBC (Bld) [Ratio] 0.1 % 0-0.5 [facility] Creatinine Clearance (Chem 61.68 [facility] Platelet poor plasma interna tional normalized ratio (INR) by coagulation assay (relaton 08-16-2020 INR Coag (PPP) [Relative time] 12.6 {INR} [facility] Comment on above: Results calledat [...] INR Coag (PPP) [Relative time] 11.6 {INR} [facility] Comment on above: Critical valueresult [...] (mass/volume)on 08-16-2020 Calcium [Mass/Vol] 8.4 mg/dL 8.2-10.2 [facility] Serum or plasma cardiac trop onin I measurement (mass/volume)on 08-16-2020 Troponin I.cardiac [Mass/Vol] ng/mL 0-0.02 [facility] Comment on above: ELLA SC Cut off value > or equal to 0.03 ng/mL in conjunction with clinical conditions of myocardial infarction.([email or web address]) Serum or plasma chloride jose antonio surement (moles/volume)on 08-16-2020 Chloride [Moles/Vol] 103 mmol/L 95-114 [facility] Serum or plasma creatine kin ase MB (CKMB)/total creatine kinase (CK) ratio by calculaon 08-16-2020 CK.MB Calc [Catalytic fraction] 3.7 0.00-2.50 [facility] Serum or plasma creatine kin ase MB measurement (mass/volume)on 08-16-2020 CK.MB [Mass/Vol] 2.7 ng/mL 0.6-6.3 [facility] Serum or plasma creatinine m easurement with calculation of estimated glomerular filtron 08-16-2020 Creatinine [Mass/Vol] 1.03 mg/dL 0.44-1.03 [facility] [facility] Serum or plasma glucose jackie urement (mass/volume)on 08-16-2020 Glucose [Mass/Vol] 120 mg/dL 70-100 [facility] Comment on above: ADA recommended refe rence rangeRandom Glucose Reference Range is dependent on time and content of last meal. Glucose of more than 200 mg/dL in a nonstressed, ambulatory subject supports the diagnosis of Diabetes Mellitus. Serum or plasma potassium me asurement (moles/volume)on 08-16-2020 Potassium [Moles/Vol] 4.3 mmol/L 3.5-5.1 [facility] Serum or plasma sodium measu rement (moles/volume)on 08-16-2020 Sodium [Moles/Vol] 140 mmol/L 136-146 [facility] Serum or plasma total carbon dioxide measurement (moles/volume)on 08-16-2020 CO2 [Moles/Vol] 25.2 mmol/L 22.0-30.0 [facility] Serum or plasma urea nitroge n measurement (mass/volume)on 08-16-2020 Urea nitrogen [Mass/Vol] 9 mg/dL 9- [facility] Specific gravity of Urine by Automated test stripon 08-16-2020 Specific gravity (U) [Rel density] 1.014 1.001-1.03 0 [facility] Squamous epithelial cells de tection in urine sediment by light microscopyon 08-16-2020 Epithelial cells.squamous LM Ql (Urine sed) 5-9 [HPF] [facility] Trichomonas vaginalis detect ion in urine sediment by light microscopyon 08-16-2020 T. vaginalis LM Ql (Urine sed) 3-4 [HPF] None Seen [facility] Urine bacteria detection by automated methodon 08-16-2020 Bacteria Auto Ql (U) None seen None Seen [facility] Urine clarity by refractomet ry automatedon 08-16-2020 Clarity Refractometry automated (U) Cloudy Clear [facility] Urine glucose measurement by automated test strip (mass/volume)on 08-16-2020 Glucose Auto test strip (U) [Mass/Vol] Normal mg/dL Normal [facility] Urine hemoglobin detection b y automated test stripon 08-16-2020 Hemoglobin Auto test strip Ql (U) 1+ Negative [facility] Urine ketones measurement by automated test strip (mass/volume)on 08-16-2020 Ketones (U) [Mass/Vol] Negative [facility] Urine leukocyte esterase det ection by automated test stripon 08-16-2020 Leukocyte esterase Auto test strip Ql (U) 4+ Negative [facility] Urine nitrite detection by t est stripon 08-16-2020 Nitrite Ql (U) Negative Negative [facility] Urine pH measurement by auto mated test stripon 08-16-2020 pH (U) 6.5 [pH] 5.0-9.0 [facility] Urine protein measurement by automated test strip (mass/volume)on 08-16-2020 Protein (U) [Mass/Vol] Trace mg/dL Negative F [facility] Urine total bilirubin detect ion by test stripon 08-16-2020 Bilirubin Ql (U) Negative Negative [facility] Urine urobilinogen measureme nt by automated test strip (mass/volume)on 08-16-2020 Urobilinogen (U) [Mass/Vol] Normal mg/dL Normal [facility] Activated partial thrombopla stin time (aPTT) in platelet poor plasma by coagulation aon 07-26-2020 aPTT Coag (PPP) [Time] 32.4 s 23.0-35.0 [facility] Automated basophil %on 07-26 Basophils/100 WBC (Bld) 1.5 % [facility] Automated basophil counton 1 09-25-2019 Basophils (Bld) [#/Vol] 0.1 10*3/uL 0.0-0.2 [facility] Automated blood lymphocyte c ount (number/volume)on 07-26-2020 Lymphocytes (Bld) [#/Vol] 1.9 10*3/uL 1.00-4.8 [facility] Automated blood lymphocyte c ount as percentage of total leukocyteson 07-26-2020 Lymphocytes/100 WBC (Bld) 24.7 % [facility] Automated blood monocyte cou nton 07-26-2020 Monocytes (Bld) [#/Vol] 0.8 10*3/uL 0.0-0.8 [facility] Automated blood platelet cou nt (count/volume)on 07-26-2020 Platelets (Bld) [#/Vol] 207 10*3/uL 150-450 [facility] Automated blood platelet jose antonio n volume measurementon 07-26-2020 Platelet mean volume (Bld) [Entitic vol] 9.5 fL 6.3-10.7 [facility] Automated eosinophil %on Eosinophils/100 WBC (Bld) 3.4 % [facility] Automated eosinophil counton 07-26-2020 Eosinophils (Bld) [#/Vol] 0.3 10*3/uL 0.0-0.45 [facility] Automated erythrocyte distri bution width ratioon 07-26-2020 Erythrocyte distribution width (RBC) [Ratio] 20.9 % 11.9-15.3 [facility] Automated erythrocyte mean c orpuscular hemoglobin (mass per erythrocyte)on 07-26-2020 MCH (RBC) [Entitic mass] 24.3 pg 24.7-34.3 [facility] Automated erythrocyte mean c orpuscular hemoglobin concentration measurement (mass/volon 07-26-2020 MCHC (RBC) [Mass/Vol] 31.3 g/dL 32.0-35.0 [facility] Automated erythrocyte mean c orpuscular volumeon 07-26-2020 MCV (RBC) [Entitic vol] 77.8 fL 80-100 [facility] Automated monocyte %on 07-26 Monocytes/100 WBC (Bld) 10.5 % [facility] Automated neutrophil %on Neutrophils/100 WBC (Bld) 59.9 % [facility] Blood anisocytosis detection on 07-26-2020 Anisocytosis Ql (Bld) Marked [facility] Blood erythrocytes automated count (number/volume)on 07-26-2020 RBC (Bld) [#/Vol] 4.84 10*6/uL 3.60-5.00 [facility] Blood hemoglobin measurement (mass/volume)on 07-26-2020 Hemoglobin (Bld) [Mass/Vol] 11.8 g/dL 11.8-15.4 [facility] Blood leukocytes automated c ount (number/volume)on 07-26-2020 WBC (Bld) [#/Vol] 7.8 10*3/uL 4.5-11.0 [facility] Blood neutrophil count by au tomated method (number/volume)on 07-26-2020 Neutrophils (Bld) [#/Vol] 4.7 10*3/uL 1.8-7.7 [facility] Body fluid albumin measureme nt (mass/volume)on 07-26-2020 Albumin (Body fld) [Mass/Vol] 3.5 g/dL 3.2-5.5 [facility] Creatine kinase [Enzymatic a ctivity/volume] in Serum or Plasmaon 07-26-2020 CK [Catalytic activity/Vol] 58 U/L 22-269 [facility] Estimated glomerular filtrat ion rate (GFR) non- Americanon 07-26-2020 GFR/1.73 sq M predicted among non-blacks MDRD (S/P/Bld) [Vol rate/Area] mL/min/{1.73_m2} [facility] Hematocrit [Volume Fraction] of Blood by Automated counton 07-26-2020 Hematocrit (Bld) [Volume fraction] 37.7 % 34.0-46.4 [facility] Hematologyon 07-26-2020 Platelets (Bld) [#/Vol] Normal Normal [facility] PT Coag (PPP) [Time] 16.1 s 9.0-12.9 [facility] Hypochromia detectionon 07-01 Hypochromia Ql (Bld) Slight [facility] Metabolic Panelon 07-26-2020 Magnesium [Mass/Vol] 1.7 mg/dL 1.6-2.6 [facility] Otheron 07-26-2020 GFR/1.73 sq M.predicted MDRD (S/P/Bld) [Vol rate/Area] mL/min/{1.73_m2} [facility] Comment on above: GFR estimated refere nce range: According to KDOQI guidelines, <60 ml/min/1.73m2 is sufficient to diagnose a patient with chronic kidney disease. Microcytosis Slight [facility] Nucleated RBC/100 WBC (Bld) [Ratio] 0.1 % 0-0.5 [facility] Creatinine Clearance (Chem 66.06 [facility] Platelet Morphology Comment Normal Normal [facility] Platelet poor plasma interna tional normalized ratio (INR) by coagulation assay (relaton 07-26-2020 INR Coag (PPP) [Relative time] 1.4 {INR} [facility] Comment on above: INR [...] Plasmaon 07-26-2020 Protein [Mass/Vol] 6.4 g/dL 6.1-7.9 [facility] RBC morphologyon 07-26-2020 RBC morphology finding Nom (Bld) N/A [facility] Serum globulin measurement b y calculation (mass/volume)on 07-26-2020 Globulin (S) [Mass/Vol] 2.9 g/dL [facility] Serum or plasma alanine hernandez otransferase measurement without P-5'-P (enzymatic activion 07-26-2020 ALT No additional P-5'-P [Catalytic activity/Vol] 21 U/L 10-60 [facility] Serum or plasma albumin/glob ulin mass ratioon 07-26-2020 Albumin/Globulin [Mass ratio] 1.2 {ratio} [facility] Serum or plasma alkaline rosanna sphatase measurement (enzymatic activity/volume)on 07-26-2020 ALP [Catalytic activity/Vol] 153 U/L 32-92 [facility] Serum or plasma aspartate am inotransferase measurement (enzymatic activity/volume)on 07-26-2020 AST [Catalytic activity/Vol] 22 U/L 10-42 [facility] Serum or plasma calcium jackie urement (mass/volume)on 07-26-2020 Calcium [Mass/Vol] 8.7 mg/dL 8.2-10.2 [facility] Serum or plasma cardiac trop onin I measurement (mass/volume)on 07-26-2020 Troponin I.cardiac [Mass/Vol] ng/mL 0-0.02 [facility] Comment on above: ELLA SC Cut off value > or equal to 0.03 ng/mL in conjunction with clinical conditions of myocardial infarction.([email or web address]) Serum or plasma chloride jose antonio surement (moles/volume)on 07-26-2020 Chloride [Moles/Vol] 106 mmol/L 95-114 [facility] Serum or plasma creatine kin ase MB (CKMB)/total creatine kinase (CK) ratio by calculaon 07-26-2020 CK.MB Calc [Catalytic fraction] 3.7 0.00-2.50 [facility] Serum or plasma creatine kin ase MB measurement (mass/volume)on 07-26-2020 CK.MB [Mass/Vol] 2.2 ng/mL 0.6-6.3 [facility] Serum or plasma creatinine m easurement with calculation of estimated glomerular filtron 07-26-2020 Creatinine [Mass/Vol] 0.96 mg/dL 0.44-1.03 [facility] Serum or plasma glucose jackie urement (mass/volume)on 07-26-2020 Glucose [Mass/Vol] 96 mg/dL 70-100 [facility] Comment on above: ADA recommended refe rence rangeRandom Glucose Reference Range is dependent on time and content of last meal. Glucose of more than 200 mg/dL in a nonstressed, ambulatory subject supports the diagnosis of Diabetes Mellitus. Serum or plasma potassium me asurement (moles/volume)on 07-26-2020 Potassium [Moles/Vol] 4.2 mmol/L 3.5-5.1 [facility] Serum or plasma sodium measu rement (moles/volume)on 07-26-2020 Sodium [Moles/Vol] 138 mmol/L 136-146 [facility] Serum or plasma total biliru bin measurement (mass/volume)on 07-26-2020 Bilirubin [Mass/Vol] 0.3 mg/dL 0.3-1.2 [facility] Serum or plasma total carbon dioxide measurement (moles/volume)on 07-26-2020 CO2 [Moles/Vol] 22.5 mmol/L 22.0-30.0 [facility] Serum or plasma urea nitroge n measurement (mass/volume)on 07-26-2020 Urea nitrogen [Mass/Vol] 14 mg/dL 05-22 [facility] Activated partial thrombopla stin time (aPTT) in platelet poor plasma by coagulation aon 07-22-2020 aPTT Coag (PPP) [Time] 36.7 s 23.0-35.0 [facility] Automated basophil %on 07-22 Basophils/100 WBC (Bld) 1.1 % [facility] Automated basophil counton 1 09-21-2019 Basophils (Bld) [#/Vol] 0.1 10*3/uL 0.0-0.2 [facility] Automated blood lymphocyte c ount (number/volume)on 07-22-2020 Lymphocytes (Bld) [#/Vol] 1.8 10*3/uL 1.00-4.8 [facility] Automated blood lymphocyte c ount as percentage of total leukocyteson 07-22-2020 Lymphocytes/100 WBC (Bld) 18.8 % [facility] Automated blood monocyte cou nton 07-22-2020 Monocytes (Bld) [#/Vol] 0.9 10*3/uL 0.0-0.8 [facility] Automated blood platelet cou nt (count/volume)on 07-22-2020 Platelets (Bld) [#/Vol] 201 10*3/uL 150-450 [facility] Automated blood platelet jose antonio n volume measurementon 07-22-2020 Platelet mean volume (Bld) [Entitic vol] 9.4 fL 6.3-10.7 [facility] Automated eosinophil %on Eosinophils/100 WBC (Bld) 2.1 % [facility] Automated eosinophil counton 07-22-2020 Eosinophils (Bld) [#/Vol] 0.2 10*3/uL 0.0-0.45 [facility] Automated erythrocyte distri bution width ratioon 07-22-2020 Erythrocyte distribution width (RBC) [Ratio] 20.7 % 11.9-15.3 [facility] Automated erythrocyte mean c orpuscular hemoglobin (mass per erythrocyte)on 07-22-2020 MCH (RBC) [Entitic mass] 24.0 pg 24.7-34.3 [facility] Automated erythrocyte mean c orpuscular hemoglobin concentration measurement (mass/volon 07-22-2020 MCHC (RBC) [Mass/Vol] 31.1 g/dL 32.0-35.0 [facility] Automated erythrocyte mean c orpuscular volumeon 07-22-2020 MCV (RBC) [Entitic vol] 77.1 fL 80-100 [facility] Automated monocyte %on 07-22 Monocytes/100 WBC (Bld) 9.4 % [facility] Automated neutrophil %on Neutrophils/100 WBC (Bld) 68.6 % [facility] Blood erythrocytes automated count (number/volume)on 07-22-2020 RBC (Bld) [#/Vol] 4.68 10*6/uL 3.60-5.00 [facility] Blood hemoglobin measurement (mass/volume)on 07-22-2020 Hemoglobin (Bld) [Mass/Vol] 11.2 g/dL 11.8-15.4 [facility] Blood leukocytes automated c ount (number/volume)on 07-22-2020 WBC (Bld) [#/Vol] 9.5 10*3/uL 4.5-11.0 [facility] Blood neutrophil count by au tomated method (number/volume)on 07-22-2020 Neutrophils (Bld) [#/Vol] 6.5 10*3/uL 1.8-7.7 [facility] Body fluid albumin measureme nt (mass/volume)on 07-22-2020 Albumin (Body fld) [Mass/Vol] 3.5 g/dL 3.2-5.5 [facility] COVID-19 SOFIAon 07-22-2020 COVID- MARANDA Negative Negative [facility] Comment on above: This is a duplicate test result based off of the Maranda SARS Antigen (CAIT) test performed within the Microbiology department. [facility]acon 07-22-2020 Natriuretic peptide B (Bld) [Mass/Vol] 508.0 pg/mL 5-100 [facility] Estimated glomerular filtrat ion rate (GFR) non- Americanon 07-22-2020 GFR/1.73 sq M predicted among non-blacks MDRD (S/P/Bld) [Vol rate/Area] 58 mL/min/{1.73_m2} [facility] Hematocrit [Volume Fraction] of Blood by Automated counton 07-22-2020 Hematocrit (Bld) [Volume fraction] 36.1 % 34.0-46.4 [facility] Hematologyon 07-22-2020 PT Coag (PPP) [Time] 33.6 s 9.0-12.9 [facility] Metabolic Panelon 07-22-2020 Magnesium [Mass/Vol] 1.9 mg/dL 1.6-2.6 [facility] Otheron 07-22-2020 SARS Antigen (LFIA) [facility] GFR/1.73 sq M.predicted MDRD (S/P/Bld) [Vol rate/Area] mL/min/{1.73_m2} [facility] Comment on above: GFR estimated refere nce range: According to KDOQI guidelines, <60 ml/min/1.73m2 is sufficient to diagnose a patient with chronic kidney disease. Nucleated RBC/100 WBC (Bld) [Ratio] 0.0 % 0-0.5 [facility] Creatinine Clearance (Chem 64.10 [facility] Platelet poor plasma interna tional normalized ratio (INR) by coagulation assay (relaton 07-22-2020 INR Coag (PPP) [Relative time] 3.0 {INR} [facility] Comment on above: INR [...] Plasmaon 07-22-2020 Protein [Mass/Vol] 6.3 g/dL 6.1-7.9 [facility] Serum globulin measurement b y calculation (mass/volume)on 07-22-2020 Globulin (S) [Mass/Vol] 2.8 g/dL [facility] Serum or plasma alanine hernandez otransferase measurement without P-5'-P (enzymatic activion 07-22-2020 ALT No additional P-5'-P [Catalytic activity/Vol] 32 U/L 10-60 [facility] Serum or plasma albumin/glob ulin mass ratioon 07-22-2020 Albumin/Globulin [Mass ratio] 1.3 {ratio} [facility] Serum or plasma alkaline rosanna sphatase measurement (enzymatic activity/volume)on 07-22-2020 ALP [Catalytic activity/Vol] 145 U/L 32-92 [facility] Serum or plasma aspartate am inotransferase measurement (enzymatic activity/volume)on 07-22-2020 AST [Catalytic activity/Vol] 34 U/L 10-42 [facility] Serum or plasma calcium jackie urement (mass/volume)on 07-22-2020 Calcium [Mass/Vol] 8.6 mg/dL 8.2-10.2 [facility] Serum or plasma cardiac trop onin I measurement (mass/volume)on 07-22-2020 Troponin I.cardiac [Mass/Vol] ng/mL 0-0.02 [facility] Comment on above: ELLA SC Cut off value > or equal to 0.03 ng/mL in conjunction with clinical conditions of myocardial infarction.([email or web address]) Serum or plasma chloride jose antonio surement (moles/volume)on 07-22-2020 Chloride [Moles/Vol] 102 mmol/L 95-114 [facility] Serum or plasma creatinine m easurement with calculation of estimated glomerular filtron 07-22-2020 Creatinine [Mass/Vol] 1.01 mg/dL 0.44-1.03 [facility] Serum or plasma glucose jackie urement (mass/volume)on 07-22-2020 Glucose [Mass/Vol] 100 mg/dL 70-100 [facility] Comment on above: ADA recommended refe rence rangeRandom Glucose Reference Range is dependent on time and content of last meal. Glucose of more than 200 mg/dL in a nonstressed, ambulatory subject supports the diagnosis of Diabetes Mellitus. Serum or plasma potassium me asurement (moles/volume)on 07-22-2020 Potassium [Moles/Vol] 4.5 mmol/L 3.5-5.1 [facility] Serum or plasma sodium measu rement (moles/volume)on 07-22-2020 Sodium [Moles/Vol] 138 mmol/L 136-146 [facility] Serum or plasma total biliru bin measurement (mass/volume)on 07-22-2020 Bilirubin [Mass/Vol] 0.3 mg/dL 0.3-1.2 [facility] Serum or plasma total carbon dioxide measurement (moles/volume)on 07-22-2020 CO2 [Moles/Vol] 24.6 mmol/L 22.0-30.0 [facility] Serum or plasma urea nitroge n measurement (mass/volume)on 07-22-2020 Urea nitrogen [Mass/Vol] 15 mg/dL 05-22 [facility] Activated partial thrombopla stin time (aPTT) in platelet poor plasma by coagulation aon 07-19-2020 aPTT Coag (PPP) [Time] 41.0 s 23.0-35.0 [facility] Albumin [Mass/volume] in Ser um or Plasmaon 07-19-2020 Albumin [Mass/Vol] 3.9 g/dL 3.2-5.5 [facility] Automated basophil %on 07-19 Basophils/100 WBC (Bld) 1.7 % [facility] Automated basophil counton 1 09-18-2019 Basophils (Bld) [#/Vol] 0.1 10*3/uL 0.0-0.2 [facility] Automated blood lymphocyte c ount (number/volume)on 07-19-2020 Lymphocytes (Bld) [#/Vol] 2.9 10*3/uL 1.00-4.8 [facility] Automated blood lymphocyte c ount as percentage of total leukocyteson 07-19-2020 Lymphocytes/100 WBC (Bld) 34.7 % [facility] Automated blood monocyte cou nton 07-19-2020 Monocytes (Bld) [#/Vol] 0.9 10*3/uL 0.0-0.8 [facility] Automated blood platelet cou nt (count/volume)on 07-19-2020 Platelets (Bld) [#/Vol] 221 10*3/uL 150-450 [facility] Automated blood platelet jose antonio n volume measurementon 07-19-2020 Platelet mean volume (Bld) [Entitic vol] 9.4 fL 6.3-10.7 [facility] Automated eosinophil %on Eosinophils/100 WBC (Bld) 3.2 % [facility] Automated eosinophil counton 07-19-2020 Eosinophils (Bld) [#/Vol] 0.3 10*3/uL 0.0-0.45 [facility] Automated erythrocyte distri bution width ratioon 07-19-2020 Erythrocyte distribution width (RBC) [Ratio] 21.2 % 11.9-15.3 [facility] Automated erythrocyte mean c orpuscular hemoglobin (mass per erythrocyte)on 07-19-2020 MCH (RBC) [Entitic mass] 24.1 pg 24.7-34.3 [facility] Automated erythrocyte mean c orpuscular hemoglobin concentration measurement (mass/volon 07-19-2020 MCHC (RBC) [Mass/Vol] 31.0 g/dL 32.0-35.0 [facility] Automated erythrocyte mean c orpuscular volumeon 07-19-2020 MCV (RBC) [Entitic vol] 77.7 fL 80-100 [facility] Automated erythrocytes count in urine sediment (number/area)on 07-19-2020 RBC Auto (Urine sed) [#/Area] 10-19 [HPF] [facility] Automated leukocytes count i n urine sediment (number/area)on 07-19-2020 WBC Auto (Urine sed) [#/Area] Innumerable [HPF] [facility] Automated monocyte %on 07-19 Monocytes/100 WBC (Bld) 11.0 % [facility] Automated neutrophil %on Neutrophils/100 WBC (Bld) 49.4 % [facility] Automated urine color determ inationon 07-19-2020 Color (U) Yellow Yellow [facility] Blood anisocytosis detection on 07-19-2020 Anisocytosis Ql (Bld) Marked [facility] Blood erythrocytes automated count (number/volume)on 07-19-2020 RBC (Bld) [#/Vol] 5.04 10*6/uL 3.60-5.00 [facility] Blood hemoglobin measurement (mass/volume)on 07-19-2020 Hemoglobin (Bld) [Mass/Vol] 12.1 g/dL 11.8-15.4 [facility] Blood leukocytes automated c ount (number/volume)on 07-19-2020 WBC (Bld) [#/Vol] 8.4 10*3/uL 4.5-11.0 [facility] Blood neutrophil count by au tomated method (number/volume)on 07-19-2020 Neutrophils (Bld) [#/Vol] 4.2 10*3/uL 1.8-7.7 [facility] 07-19-2020 Natriuretic peptide B (Bld) [Mass/Vol] 357.0 pg/mL 5-100 [facility] Creatine kinase [Enzymatic a ctivity/volume] in Serum or Plasmaon 07-19-2020 CK [Catalytic activity/Vol] 81 U/L 22-269 [facility] Estimated glomerular filtrat ion rate (GFR) non- Americanon 07-19-2020 GFR/1.73 sq M predicted among non-blacks MDRD (S/P/Bld) [Vol rate/Area] mL/min/{1.73_m2} [facility] Hematocrit [Volume Fraction] of Blood by Automated counton 07-19-2020 Hematocrit (Bld) [Volume fraction] 39.2 % 34.0-46.4 [facility] Hematologyon 07-19-2020 Platelets (Bld) [#/Vol] Normal Normal [facility] PT Coag (PPP) [Time] 51.9 s 9.0-12.9 [facility] Metabolic Panelon 07-19-2020 Magnesium [Mass/Vol] 2.1 mg/dL 1.6-2.6 [facility] Otheron 07-19-2020 Acanthocytes Slight [facility] GFR/1.73 sq M.predicted MDRD (S/P/Bld) [Vol rate/Area] mL/min/{1.73_m2} [facility] Comment on above: GFR estimated refere nce range: According to KDOQI guidelines, <60 ml/min/1.73m2 is sufficient to diagnose a patient with chronic kidney disease. Nucleated RBC/100 WBC (Bld) [Ratio] 0.1 % 0-0.5 [facility] Creatinine Clearance (Chem 67.89 [facility] Platelet Morphology Comment Normal Normal [facility] Poikilocytosis Slight [facility] Schistocytes Slight [facility] Ovalocyte detectionon 2019 Ovalocytes LM Ql (Bld) Moderate [facility] Plate[facility] poor plasma interna tional normalized ratio (INR) by coagulation assay (relaton 07-19-2020 INR Coag (PPP) [Relative time] 4.6 {INR} [facility] Comment on above: INR [...] Plasmaon 07-19-2020 Protein [Mass/Vol] 7.1 g/dL 6.1-7.9 [facility] RBC morphologyon 07-19-2020 RBC morphology finding Nom (Bld) N/A [facility] Serum globulin measurement b y calculation (mass/volume)on 07-19-2020 Globulin (S) [Mass/Vol] 3.2 g/dL [facility] Serum or plasma alanine hernandez otransferase measurement without P-5'-P (enzymatic activion 07-19-2020 ALT No additional P-5'-P [Catalytic activity/Vol] 32 U/L 10-60 [facility] Serum or plasma albumin/glob ulin mass ratioon 07-19-2020 Albumin/Globulin [Mass ratio] 1.2 {ratio} [facility] Serum or plasma alkaline rosanna sphatase measurement (enzymatic activity/volume)on 07-19-2020 ALP [Catalytic activity/Vol] 152 U/L 32-92 [facility] Serum or plasma aspartate am inotransferase measurement (enzymatic activity/volume)on 07-19-2020 AST [Catalytic activity/Vol] 42 U/L 10-42 [facility] Serum or plasma calcium jackie urement (mass/volume)on 07-19-2020 Calcium [Mass/Vol] 9.0 mg/dL 8.2-10.2 [facility] Serum or plasma cardiac trop onin I measurement (mass/volume)on 07-19-2020 Troponin I.cardiac [Mass/Vol] ng/mL 0-0.02 [facility] Comment on above: ELLA SC Cut off value > or equal to 0.03 ng/mL in conjunction with clinical conditions of myocardial infarction.([email or web address]) Serum or plasma chloride jose antonio surement (moles/volume)on 07-19-2020 Chloride [Moles/Vol] 104 mmol/L 95-114 [facility] Serum or plasma creatine kin ase MB (CKMB)/total creatine kinase (CK) ratio by calculaon 07-19-2020 CK.MB Calc [Catalytic fraction] 3.3 0.00-2.50 [facility] Serum or plasma creatine kin ase MB measurement (mass/volume)on 07-19-2020 CK.MB [Mass/Vol] 2.7 ng/mL 0.6-6.3 [facility] Serum or plasma creatinine m easurement with calculation of estimated glomerular filtron 07-19-2020 Creatinine [Mass/Vol] 0.94 mg/dL 0.44-1.03 [facility] Serum or plasma glucose jackie urement (mass/volume)on 07-19-2020 Glucose [Mass/Vol] 98 mg/dL 70-100 [facility] Comment on above: ADA recommended refe rence rangeRandom Glucose Reference Range is dependent on time and content of last meal. Glucose of more than 200 mg/dL in a nonstressed, ambulatory subject supports the diagnosis of Diabetes Mellitus. Serum or plasma potassium me asurement (moles/volume)on 07-19-2020 Potassium [Moles/Vol] 4.7 mmol/L 3.5-5.1 [facility] Serum or plasma sodium measu rement (moles/volume)on 07-19-2020 Sodium [Moles/Vol] 139 mmol/L 136-146 [facility] Serum or plasma total biliru bin measurement (mass/volume)on 07-19-2020 Bilirubin [Mass/Vol] 0.5 mg/dL 0.3-1.2 [facility] Serum or plasma total carbon dioxide measurement (moles/volume)on 07-19-2020 CO2 [Moles/Vol] 21.9 mmol/L 22.0-30.0 [facility] Serum or plasma urea nitroge n measurement (mass/volume)on 07-19-2020 Urea nitrogen [Mass/Vol] 17 mg/dL 05-22 [facility] Specific gravity of Urine by Automated test stripon 07-19-2020 Specific gravity (U) [Rel density] 1.015 1.001-1.03 0 [facility] Squamous epithelial cells de tection in urine sediment by light microscopyon 07-19-2020 Epithelial cells.squamous LM Ql (Urine sed) 0-1 [HPF] [facility] Urinalysison 07-19-2020 Hyaline casts LM Ql (Urine sed) 0-8 [LPF] [facility] Urine bacteria detection by automated methodon 07-19-2020 Bacteria Auto Ql (U) None seen None Seen [facility] Urine clarity by refractomet ry automatedon 07-19-2020 Clarity Refractometry automated (U) Clear Clear [facility] Urine culture routineon 07-01 Bacteria identified Cx Nom (U) 2 Days [facility] Urine glucose measurement by automated test strip (mass/volume)on 07-19-2020 Glucose Auto test strip (U) [Mass/Vol] Normal mg/dL Normal [facility] Urine hemoglobin detection b y automated test stripon 07-19-2020 Hemoglobin Auto test strip Ql (U) 1+ Negative [facility] Urine ketones measurement by automated test strip (mass/volume)on 07-19-2020 Ketones (U) [Mass/Vol] Negative Negative [facility] Urine leukocyte esterase det ection by automated test stripon 07-19-2020 Leukocyte esterase Auto test strip Ql (U) 4+ Negative [facility] Urine nitrite detection by t est stripon 07-19-2020 Nitrite Ql (U) Negative Negative [facility] Urine pH measurement by auto mated test stripon 07-19-2020 pH (U) 6.0 [pH] 5.0-9.0 [facility] Urine protein measurement by automated test strip (mass/volume)on 07-19-2020 Protein (U) [Mass/Vol] Negative Negative [facility] Urine total bilirubin detect ion by test stripon 07-19-2020 Bilirubin Ql (U) Negative Negative [facility] Urine urobilinogen measureme nt by automated test strip (mass/volume)on 07-19-2020 Urobilinogen (U) [Mass/Vol] Normal mg/dL Normal [facility] Activated partial thrombopla stin time (aPTT) in platelet poor plasma by coagulation aon 06-15-2020 aPTT Coag (PPP) [Time] 30.9 s 23.0-35.0 [facility] Automated basophil %on 06-15 Basophils/100 WBC (Bld) 1.0 % [facility] Automated basophil counton 1 Basophils (Bld) [#/Vol] 0.1 10*3/uL 0.0-0.2 [facility] Automated blood lymphocyte c ount (number/volume)on 06-15-2020 Lymphocytes (Bld) [#/Vol] 1.1 10*3/uL 1.00-4.8 [facility] Automated blood lymphocyte c ount as percentage of total leukocyteson 06-15-2020 Lymphocytes/100 WBC (Bld) 8.1 % [facility] Automated blood monocyte cou nton 06-15-2020 Monocytes (Bld) [#/Vol] 1.7 10*3/uL 0.0-0.8 [facility] Automated blood platelet cou nt (count/volume)on 06-15-2020 Platelets (Bld) [#/Vol] 170 10*3/uL 150-450 [facility] Automated blood platelet jose antonio n volume measurementon 06-15-2020 Platelet mean volume (Bld) [Entitic vol] 9.5 fL 6.3-10.7 [facility] Automated eosinophil %on Eosinophils/100 WBC (Bld) 0.1 % [facility] Automated eosinophil counton 06-15-2020 Eosinophils (Bld) [#/Vol] 0.0 10*3/uL 0.0-0.45 [facility] Automated erythrocyte distri bution width ratioon 06-15-2020 Erythrocyte distribution width (RBC) [Ratio] 26.0 % 11.9-15.3 [facility] Automated erythrocyte mean c orpuscular hemoglobin (mass per erythrocyte)on 06-15-2020 MCH (RBC) [Entitic mass] 23.8 pg 24.7-34.3 [facility] Automated erythrocyte mean c orpuscular hemoglobin concentration measurement (mass/volon 06-15-2020 MCHC (RBC) [Mass/Vol] 30.8 g/dL 32.0-35.0 [facility] Automated erythrocyte mean c orpuscular volumeon 06-15-2020 MCV (RBC) [Entitic vol] 77.4 fL 80-100 [facility] Automated monocyte %on 06-15 Monocytes/100 WBC (Bld) 12.7 % [facility] Automated neutrophil %on Neutrophils/100 WBC (Bld) 78.1 % [facility] Blood anisocytosis detection on 06-15-2020 Anisocytosis Ql (Bld) Moderate [facility] Blood erythrocytes automated count (number/volume)on 06-15-2020 RBC (Bld) [#/Vol] 4.75 10*6/uL 3.60-5.00 [facility] Blood hemoglobin measurement (mass/volume)on 06-15-2020 Hemoglobin (Bld) [Mass/Vol] 11.3 g/dL 11.8-15.4 [facility] Blood leukocytes automated c ount (number/volume)on 06-15-2020 WBC (Bld) [#/Vol] 13.3 10*3/uL 4.5-11.0 [facility] Blood neutrophil count by au tomated method (number/volume)on 06-15-2020 Neutrophils (Bld) [#/Vol] 10.4 10*3/uL 1.8-7.7 [facility] Body fluid albumin measureme nt (mass/volume)on 06-15-2020 Albumin (Body fld) [Mass/Vol] 3.0 g/dL 3.2-5.5 [facility] COVID-19 Detected/Not Detect edon 06-15-2020 COVID-19 Detected/Not Detected Not detected Not Detecte [facility] Comment on above: This is a duplicate test result based off of the RP2.1 COVID (EUA) test performed within the Microbiology department. [facility] 06-15-2020 Natriuretic peptide B (Bld) [Mass/Vol] 2832.0 pg/mL 5-100 [facility] Creatine kinase [Enzymatic a ctivity/volume] in Serum or Plasmaon 06-15-2020 CK [Catalytic activity/Vol] 125 U/L 22-269 [facility] Estimated glomerular filtrat ion rate (GFR) non- Americanon 06-15-2020 GFR/1.73 sq M predicted among non-blacks MDRD (S/P/Bld) [Vol rate/Area] 53 mL/min/{1.73_m2} [facility] Hematocrit [Volume Fraction] of Blood by Automated counton 06-15-2020 Hematocrit (Bld) [Volume fraction] 36.8 % 34.0-46.4 [facility] Hematologyon 06-15-2020 Platelets (Bld) [#/Vol] Normal Normal [facility] PT Coag (PPP) [Time] 51.7 s 9.0-12.9 [facility] Otheron 06-15-2020 Respiratory Panel (PCR) [facility] Crenated Cell Slight [facility] GFR/1.73 sq M.predicted MDRD (S/P/Bld) [Vol rate/Area] mL/min/{1.73_m2} [facility] Comment on above: GFR estimated refere nce range: According to KDOQI guidelines, <60 ml/min/1.73m2 is sufficient to diagnose a patient with chronic kidney disease. Microcytosis Moderate [facility] Nucleated RBC/100 WBC (Bld) [Ratio] 0.0 % 0-0.5 [facility] Pharmacy Creatinine Clearance (Chem 60.88 [facility] Platelet Morphology Comment Normal Normal [facility] Poikilocytosis Slight [facility] Schistocytes Slight [facility] Ovalocyte detectionon 2019 Ovalocytes LM Ql (Bld) [facility]light [facility] Platelet poor plasma interna tional normalized ratio (INR) by coagulation assay (relaton 06-15-2020 INR Coag (PPP) [Relative time] 4.6 {INR} [facility] Comment on above: INR [...] Plasmaon 06-15-2020 Protein [Mass/Vol] 5.9 g/dL 6.1-7.9 [facility] RBC morphologyon 06-15-2020 RBC morphology finding Nom (Bld) N/A [facility] Serum globulin measurement b y calculation (mass/volume)on 06-15-2020 Globulin (S) [Mass/Vol] 2.9 g/dL [facility] Serum or plasma alanine hernandez otransferase measurement without P-5'-P (enzymatic activion 06-15-2020 ALT No additional P-5'-P [Catalytic activity/Vol] 14 U/L 10-60 [facility] Serum or plasma albumin/glob ulin mass ratioon 06-15-2020 Albumin/Globulin [Mass ratio] 1.0 {ratio} [facility] Serum or plasma alkaline rosanna sphatase measurement (enzymatic activity/volume)on 06-15-2020 ALP [Catalytic activity/Vol] 150 U/L 32-92 [facility] Serum or plasma aspartate am inotransferase measurement (enzymatic activity/volume)on 06-15-2020 AST [Catalytic activity/Vol] 28 U/L 10 [facility] Serum or plasma calcium jackie urement (mass/volume)on 06-15-2020 Calcium [Mass/Vol] 8.6 mg/dL 8.2-10.2 [facility] Serum or plasma cardiac trop onin I measurement (mass/volume)on 06-15-2020 Troponin I.cardiac [Mass/Vol] 0.03 ng/mL 0-0.02 [facility] Comment on above: ELLA SC Cut off value > or equal to 0.03 ng/mL in conjunction with clinical conditions of myocardial infarction.([email or web address]) Serum or plasma chloride jose antonio surement (moles/volume)on 06-15-2020 Chloride [Moles/Vol] 109 mmol/L 95-114 [facility] Serum or plasma creatine kin ase MB (CKMB)/total creatine kinase (CK) ratio by calculaon 06-15-2020 CK.MB Calc [Catalytic fraction] 1.5 0.00-2.50 [facility] Serum or plasma creatine kin ase MB measurement (mass/volume)on 06-15-2020 CK.MB [Mass/Vol] 1.9 ng/mL 0.6-6.3 [facility] Serum or plasma creatinine m easurement with calculation of estimated glomerular filtron 06-15-2020 Creatinine [Mass/Vol] 1.09 mg/dL 0.44-1.03 [facility] Serum or plasma glucose jackie urement (mass/volume)on 06-15-2020 Glucose [Mass/Vol] 139 mg/dL 70-100 [facility] Comment on above: ADA recommended refe rence rangeRandom Glucose Reference Range is dependent on time and content of last meal. Glucose of more than 200 mg/dL in a nonstressed, ambulatory subject supports the diagnosis of Diabetes Mellitus. Serum or plasma potassium me asurement (moles/volume)on 06-15-2020 Potassium [Moles/Vol] 4.6 mmol/L 3.5-5.1 [facility] Serum or plasma sodium measu rement (moles/volume)on 06-15-2020 Sodium [Moles/Vol] 142 mmol/L 136-146 [facility] Serum or plasma total biliru bin measurement (mass/volume)on 06-15-2020 Bilirubin [Mass/Vol] 0.7 mg/dL 0.3-1.2 [facility] Serum or plasma total carbon dioxide measurement (moles/volume)on 06-15-2020 CO2 [Moles/Vol] 23.7 mmol/L 22.0-30.0 [facility] Serum or plasma urea nitroge n measurement (mass/volume)on 06-15-2020 Urea nitrogen [Mass/Vol] 6 mg/dL 05-22 [facility] Estimated glomerular filtrat ion rate (GFR) non- Americanon 06-07-2020 GFR/1.73 sq M predicted among non-blacks MDRD (S/P/Bld) [Vol rate/Area] mL/min/{1.73_m2} [facility] Otheron 06-07-2020 GFR/1.73 sq M.predicted MDRD (S/P/Bld) [Vol rate/Area] mL/min/{1.73_m2} [facility] Comment on above: GFR estimated refere nce range: According to KDOQI guidelines, <60 ml/min/1.73m2 is sufficient to diagnose a patient with chronic kidney disease. Pharmacy Creatinine Clearance (Chem 75.20 [facility] Serum or plasma calcium jackie urement (mass/volume)on 06-07-2020 Calcium [Mass/Vol] 8.2 mg/dL 8.2-10.2 [facility] Serum or plasma chloride jose antonio surement (moles/volume)on 06-07-2020 Chloride [Moles/Vol] 110 mmol/L 95-114 [facility] Serum or plasma creatinine m easurement with calculation of estimated glomerular filtron 06-07-2020 Creatinine [Mass/Vol] 0.90 mg/dL 0.44-1.03 [facility] Serum or plasma glucose jackie urement (mass/volume)on 06-07-2020 Glucose [Mass/Vol] 83 mg/dL 70-100 [facility] Comment on above: ADA recommended refe rence rangeRandom Glucose Reference Range is dependent on time and content of last meal. Glucose of more than 200 mg/dL in a nonstressed, ambulatory subject supports the diagnosis of Diabetes Mellitus. Serum or plasma potassium me asurement (moles/volume)on 06-07-2020 Potassium [Moles/Vol] 4.4 mmol/L 3.5-5.1 [facility] Serum or plasma sodium measu rement (moles/volume)on 06-07-2020 Sodium [Moles/Vol] 138 mmol/L 136-146 [facility] Serum or plasma total carbon dioxide measurement (moles/volume)on 06-07-2020 CO2 [Moles/Vol] 19.1 mmol/L 22.0-30.0 [facility] Serum or plasma urea nitroge n measurement (mass/volume)on 06-07-2020 Urea nitrogen [Mass/Vol] 5 mg/dL 9-23 [facility] Automated basophil %on 06-06 Basophils/100 WBC (Bld) 0.9 % [facility] Automated basophil counton 1 Basophils (Bld) [#/Vol] 0.1 10*3/uL 0.0-0.2 [facility] Automated blood lymphocyte c ount (number/volume)on 06-06-2020 Lymphocytes (Bld) [#/Vol] 1.8 10*3/uL 1.00-4.8 [facility] Automated blood lymphocyte c ount as percentage of total leukocyteson 06-06-2020 Lymphocytes/100 WBC (Bld) 25.4 % [facility] Automated blood monocyte cou nton 06-06-2020 Monocytes (Bld) [#/Vol] 0.8 10*3/uL 0.0-0.8 [facility] Automated blood platelet cou nt (count/volume)on 06-06-2020 Platelets (Bld) [#/Vol] 130 10*3/uL 150-450 [facility] Automated blood platelet jose antonio n volume measurementon 06-06-2020 Platelet mean volume (Bld) [Entitic vol] 9.7 fL 6.3-10.7 [facility] Automated eosinophil %on Eosinophils/100 WBC (Bld) 4.1 % [facility] Automated eosinophil counton 06-06-2020 Eosinophils (Bld) [#/Vol] 0.3 10*3/uL 0.0-0.45 [facility] Automated erythrocyte distri bution width ratioon 06-06-2020 Erythrocyte distribution width (RBC) [Ratio] 28.2 % 11.9-15.3 [facility] Automated erythrocyte mean c orpuscular hemoglobin (mass per erythrocyte)on 06-06-2020 MCH (RBC) [Entitic mass] 24.3 pg 24.7-34.3 [facility] Automated erythrocyte mean c orpuscular hemoglobin concentration measurement (mass/volon 06-06-2020 MCHC (RBC) [Mass/Vol] 29.8 g/dL 32.0-35.0 [facility] Automated erythrocyte mean c orpuscular volumeon 06-06-2020 MCV (RBC) [Entitic vol] 81.5 fL 80-100 [facility] Automated monocyte %on 06-06 Monocytes/100 WBC (Bld) 10.6 % [facility] Automated neutrophil %on Neutrophils/100 WBC (Bld) 59.0 % [facility] Blood anisocytosis detection on 06-06-2020 Anisocytosis Ql (Bld) Marked [facility] Blood erythrocytes automated count (number/volume)on 06-06-2020 RBC (Bld) [#/Vol] 4.81 10*6/uL 3.60-5.00 [facility] Blood hemoglobin measurement (mass/volume)on 06-06-2020 Hemoglobin (Bld) [Mass/Vol] 11.7 g/dL 11.8-15.4 [facility] Blood leukocytes automated c ount (number/volume)on 06-06-2020 WBC (Bld) [#/Vol] 7.1 10*3/uL 3.8-11.6 [facility] Blood neutrophil count by au tomated method (number/volume)on 06-06-2020 Neutrophils (Bld) [#/Vol] 4.2 10*3/uL 1.8-7.7 [facility] Blood polychromasia detectio n by light microscopyon 06-06-2020 Polychromasia LM Ql (Bld) Slight [facility] Creatine kinase [Enzymatic a ctivity/volume] in Serum or Plasmaon 06-06-2020 CK [Catalytic activity/Vol] 141 U/L 22-269 [facility] Ferritin [Mass/volume] in Se rum or Plasmaon 06-06-2020 Ferritin [Mass/Vol] 27.5 ng/mL 11-306.8 [facility] Hematocrit [Volume Fraction] of Blood by Automated counton 06-06-2020 Hematocrit (Bld) [Volume fraction] 39.2 % 34.0-46.4 [facility] Hematologyon 06-06-2020 Platelets (Bld) [#/Vol] Decreased Normal [facility] Hypochromia detectionon 10 Hypochromia Ql (Bld) Moderate [facility] Otheron 06-06-2020 Absolute Reticulocyte Count 0.131 10*6/uL 0.024-0.08 4 [facility] Microcytosis Slight [facility] Nucleated RBC/100 WBC (Bld) [Ratio] 0.1 % 0-0.5 [facility] Percent Reticulocyte Count 2.7 % 0.5-1.5 [facility] Platelet Morphology Comment Normal Normal [facility] Poikilocytosis Slight [facility] Schistocytes Rare [facility] Ovalocyte detectionon 2019 Ovalocytes LM Ql (Bld) [facility]light [facility] RBC morphologyon 06-06-2020 RBC morphology finding Nom (Bld) N/A [facility] Serum or plasma cardiac trop onin I measurement (mass/volume)on 06-06-2020 Troponin I.cardiac [Mass/Vol] 0.08 ng/mL 0-0.02 [facility] Comment on above: ELLA SC Cut off value > or equal to 0.03 ng/mL in conjunction with clinical conditions of myocardial infarction.([email or web address]) Serum or plasma creatine kin ase MB (CKMB)/total creatine kinase (CK) ratio by calculaon 06-06-2020 CK.MB Calc [Catalytic fraction] 4.1 0.00-2.50 [facility] Serum or plasma creatine kin ase MB measurement (mass/volume)on 06-06-2020 CK.MB [Mass/Vol] 5.8 ng/mL 0.6-6.3 [facility] Target cellson 06-06-2020 Target cells LM Ql (Bld) Slight [facility] Teardrop cell detectionon Dacrocytes LM Ql (Bld) Rare Fi [facility] COVID-19 Positive/Negativeon 06-05-2020 COVID-19 Positive/Negative Negative Negative [facility] Comment on above: Testing for SARS-CoV -2 by RT-PCRThis test was developed and its performance characteristics determined by [employer] and validated at the [facility]. This test has not been FDA cleared [...] Otheron 06-05-2020 Coronavirus 2019 PCR Interp N/A [facility] Urine lactic acid measuremen ton 06-05-2020 Lactate (U) [Moles/Vol] 1.1 mmol/L [facility] Activated partial thrombopla stin time (aPTT) in platelet poor plasma by coagulation aon 06-04-2020 aPTT Coag (PPP) [Time] 28.9 s 23.0-35.0 [facility] 06-04-2020 Natriuretic peptide B (Bld) [Mass/Vol] 1836.0 pg/mL 5-100 [facility] Hematologyon 06-04-2020 PT Coag (PPP) [Time] 15.7 s 9.0-12.9 [facility] Metabolic Panelon 06-04-2020 Magnesium [Mass/Vol] 1.7 mg/dL 1.6-2.6 [facility] Otheron 06-04-2020 Crenated Cell Moderate [facility] Platelet poor plasma interna tional normalized ratio (INR) by coagulation assay (relaton 06-04-2020 INR Coag (PPP) [Relative time] 1.4 {INR} [facility] Comment on above: INR [...] gap molar conc 14 mmol/L Normal 10-20 [facility] Comment on above: Performed By: #### [id number] #### [facility] [address] [place] [address] Calcium mass conc 8.8 mg/dL Normal 8.6-10.3 [facility] Comment on above: Performed By: #### [id number] #### [facility] [address] [place] [address] Chloride molar conc 101 mmol/L Normal 98-107 [facility] Comment on above: Performed By: #### [id number] #### [facility] [address] [place] [address] Creatinine mass conc 0.96 mg/dL Normal 0.50-1.05 [facility] Comment on above: Performed By: #### 1 [id number] #### [facility] [address] [place] [address] GFR/1.73 sq M.predicted MDRD vol rate/area mL/min/{1.73_m2} Normal [facility] Comment on above: Result Comment: Inte rpretation for Chronic Kidney Disease: Stages 1&2 >60 Healthy or potential kidney damage. Mild decrease of GFR. Stage 3 30-59 Moderate decrease of GFR. Stage 4 15-29 Severe decrease of GFR. Stage 5 <15 Kidney failure or on dialysis. Performed By: #### 1 [id number] #### [facility] [address] [place] [address] Glucose mass conc 81 mg/dL Normal 70-100 [facility] Comment on above: Performed By: #### 1 [id number] #### [facility] [address] [place] [address] HCO3 molar conc (Bld) 25 mmol/L Normal 21-32 [facility] Comment on above: Performed By: #### 1 [id number] #### [facility] [address] [place] [address] Potassium molar conc 4.4 mmol/L Normal 3.5-5.1 [facility] Comment on above: Performed By: #### 1 [id number] #### [facility] [address] [place] [address] Sodium molar conc 136 mmol/L Normal 136-145 [facility] Comment on above: Performed By: #### 1 [id number] #### [facility] [address] [place] [address] Urea nitrogen mass conc 11 mg/dL Normal 6-23 [facility] Comment on above: Performed By: #### 1 [id number] #### [facility] [address] [place] [address] Urea nitrogen/Creatinine mass ratio 11 mg/mg Normal 5-25 [facility] Comment on above: Performed By: #### 1 [id number] #### [facility] [address] [place] [address] Prothrombin Timeon 9 INR Coag RelTime (PPP) 1.06 {INR} Normal 0.90-1.10 [facility] Comment on above: Performed By: #### 1 [id number] #### [facility] [address] [place] [address] Prothrombin time (PT) Coag time (PPP) 12.0 s Normal 9.7-12.7 [facility] Comment on above: Result Comment: MEGAN RUBIN NOTE NEW REFERENCE RANGE EFFECTIVE 2018 Performed By: #### 1 [id number] #### [facility] [address] [place] [address] Basic Metabolic Panelon 02-0 Anion gap molar conc 8 mmol/L Low 10-20 [facility] Comment on above: Performed By: #### 1 [id number] #### [facility] [address] [place] [address] Calcium mass conc 9.0 mg/dL Normal 8.6-10.3 [facility] Comment on above: Performed By: #### 1 [id number] #### [facility] [address] [place] [address] 08189 Chloride molar conc 100 mmol/L Normal 98-107 [facility] Comment on above: Performed By: #### 1 [id number] #### [facility] [address] [place] [address] 72061 Creatinine mass conc 1.05 mg/dL Normal 0.50-1.05 [facility] Comment on above: Performed By: #### 1 [id number] #### [facility] [address] [place] [address] 56749 GFR/1.73 sq M.predicted MDRD vol rate/area 56 mL/min/{1.73_m2} Normal [facility] Comment on above: Result Comment: Inte rpretation for Chronic Kidney Disease: Stages 1&2 >60 Healthy or potential kidney damage. Mild decrease of GFR. Stage 3 30-59 Moderate decrease of GFR. Stage 4 15-29 Severe decrease of GFR. Stage 5 <15 Kidney failure or on dialysis. Performed By: #### 1 [id number] #### [facility] [address] [place] [address] Glucose mass conc 78 mg/dL Normal 70-100 [facility] Comment on above: Performed By: #### 1 [id number] #### [facility] [address] [place] [address] HCO3 molar conc (Bld) 31 mmol/L Normal 21-32 [facility] Comment on above: Performed By: #### 1 [id number] #### [facility] [address] [place] [address] Potassium molar conc 4.8 mmol/L Normal 3.5-5.1 [facility] Comment on above: Performed By: #### 1 [id number] #### [facility] [address] [place] [address] Sodium molar conc 134 mmol/L Low 136-145 [facility] Comment on above: Performed By: #### 1 [id number] #### [facility] [address] [place] [address] Urea nitrogen mass conc 16 mg/dL Normal 6-23 [facility] Comment on above: Performed By: #### 1 [id number] #### [facility] [address] [place] [address] Urea nitrogen/Creatinine mass ratio 15 mg/mg Normal 5-25 [facility] Comment on above: Performed By: #### 1 [id number] #### [facility] [address] [place] [address] Prothrombin Timeon 9 INR Coag RelTime (PPP) 1.87 {INR} High 0.90-1.10 [facility] Comment on above: Performed By: #### 1 [id number] #### [facility] [address] [place] [address] Prothrombin time (PT) Coag time (PPP) 21.4 s High 9.7-12.7 [facility] Comment on above: Result Comment: PLEA SE NOTE NEW REFERENCE RANGE EFFECTIVE 2018 Performed By: #### 1 [id number] #### [facility] [address] [place] [address] Activated Clotting Time Low Rangeon 08-04-2018 Activated Clotting Time Low Range 192 sec Normal [facility] Comment on above: Result Comment: Norm al: 96-167 Secs(Unheparinized) Stent Implant Range: >300 Secs Sheath Removal: 150-170 Secs CRRT: 180-220 Secs (Continous Renal Replacement Therapy) Performed By: #### 1 [id number] #### [facility] [address] [place] [address] Activated Clotting Time Low Range 180 sec Normal [facility] Comment on above: Result Comment: Norm al: 96-167 Secs(Unheparinized) Stent Implant Range: >300 Secs Sheath Removal: 150-170 Secs CRRT: 180-220 Secs (Continous Renal Replacement Therapy) Performed By: #### 1 [id number] #### [facility] [address] [place] [address] Activated Clotting Time Low Range 121 sec Normal [facility] Comment on above: Result Comment: Norm al: 96-167 Secs(Unheparinized) Stent Implant Range: >300 Secs Sheath Removal: 150-170 Secs CRRT: 180-220 Secs (Continous Renal Replacement Therapy) Performed By: #### 1 [id number] #### [facility] [address] [place] [address] 336[address] CBCon 08-04-2018 Erythrocyte distribution width Ratio (RBC) 15.8 % High 12.0-15.4 [facility] Comment on above: Performed By: #### 1 [id number] #### [facility] [address] [place] [address] Hematocrit Volume Fraction (Bld) 41.8 % Normal 36.5-46.6 [facility] Comment on above: Performed By: #### 1 [id number] #### [facility] [address] [place] [address]24[address] Hemoglobin mass conc (Bld) 13.0 g/dL Normal 11.8-15.3 [facility] Comment on above: Performed By: #### 1 [id number] #### [facility] [address] [place] [address] MCH Entitic mass (RBC) 25.8 pg Low 27.5-33.0 [facility] Comment on above: Performed By: #### 1 [id number] #### [facility] [address] [place] [address] MCHC mass conc (RBC) 31.1 g/dL Normal 30.1-35.0 [facility] Comment on above: Performed By: #### 1 [id number] #### [facility] [address] [place] [address] MCV Entitic volume (RBC) 83.1 fL Low 85.4-100.0 [facility] Comment on above: Performed By: #### 1 [id number] #### [facility] [address] [place] [address] NRBC Absolute 0.00 10*3/uL Normal [facility] Comment on above: Performed By: #### 1 [id number] #### [facility] [address] [place] [address] NRBC Automated 0.0 /100{WBCs} Normal [facility] Comment on above: Performed By: #### 1 [id number] #### [facility] [address] [place] [address] Platelet mean volume Entitic volume (Bld) 11.5 fL Normal 9.9-12.1 [facility] Comment on above: Performed By: #### 1 [id number] #### [facility] [address] [place] [address] Platelets #/vol (Bld) 233 10*3/uL Normal 155-404 [facility] Comment on above: Performed By: #### 1 [id number] #### [facility] [address] [place] [address] RBC #/vol (Bld) 5.03 10*6/uL Normal 3.85-5.10 [facility] Comment on above: Performed By: #### 1 [id number] #### [facility] [address] [place] [address] RDW SD 46.8 fL Normal 39.3-48.6 [facility] Comment on above: Performed By: #### 1 [id number] #### [facility] [address] [place] [address]28[address] WBC #/vol (Bld) 11.2 10*3/uL High 4.4-9.9 [facility] Comment on above: Performed By: #### 1 [id number] #### [facility] [address] [place] [address] Prothrombin Timeon 12-06-201 8 INR Coag RelTime (PPP) 1.18 {INR} High 0.90-1.10 [facility] Comment on above: Performed By: #### 1 [id number] #### [facility] [address] [place] [address] 90082 Prothrombin time (PT) Coag time (PPP) 13.4 s High 9.7-12.7 [facility] Comment on above: Result Comment: Delt a check investigation completed per policy PLEASE NOTE NEW REFERENCE RANGE EFFECTIVE 2018 Performed By: #### 1 [id number] #### [facility] [address] [place] [address] Basic Metabolic Panelon 12-0 Anion gap molar conc 14 mmol/L Normal 10-20 [facility] Comment on above: Performed By: #### 1 [id number] #### [facility] [address] [place] [address] 54763 Calcium mass conc 9.5 mg/dL Normal 8.6-10.3 [facility] Comment on above: Performed By: #### 1 [id number] #### [facility] [address] [place] [address] Chloride molar conc 103 mmol/L Normal 98-107 [facility] Comment on above: Performed By: #### 1 [id number] #### [facility] [address] [place] [address] Creatinine mass conc 0.94 mg/dL Normal 0.50-1.05 [facility] Comment on above: Performed By: #### 1 [id number] #### [facility] [address] [place] [address] 67899 GFR/1.73 sq M.predicted MDRD vol rate/area mL/min/{1.73_m2} Normal [facility] Comment on above: Result Comment: Inte rpretation for Chronic Kidney Disease: Stages 1&2 >60 Healthy or potential kidney damage. Mild decrease of GFR. Stage 3 30-59 Moderate decrease of GFR. Stage 4 15-29 Severe decrease of GFR. Stage 5 <15 Kidney failure or on dialysis. Performed By: #### 1 [id number] #### [facility] [address] [place] [address] 29225 Glucose mass conc 81 mg/dL Normal 70-100 [facility] Comment on above: Performed By: #### 1 [id number] #### [facility] [address] [place] [address] HCO3 molar conc (Bld) 26 mmol/L Normal 21-32 [facility] Comment on above: Performed By: #### 1 [id number] #### [facility] [address] [place] [address] Potassium molar conc 3.8 mmol/L Normal 3.5-5.1 [facility] Comment on above: Performed By: #### 1 [id number] #### [facility] [address] [place] [address] Sodium molar conc 139 mmol/L Normal 136-145 [facility] Comment on above: Performed By: #### 1 [id number] #### [facility] [address] [place] [address] Urea nitrogen mass conc 10 mg/dL Normal 6-23 [facility] Comment on above: Performed By: #### 1 [id number] #### [facility] [address] [place] [address] Urea nitrogen/Creatinine mass ratio 11 mg/mg Normal 5-25 [facility] Comment on above: Performed By: #### 1 [id number] #### [facility] [address] [place] [address] CBCon 08-02-2018 Erythrocyte distribution width Ratio (RBC) 15.9 % High 12.0-15.4 [facility] Comment on above: Performed By: #### 1 [id number] #### [facility] [address] [place] [address] Hematocrit Volume Fraction (Bld) 47.6 % High 36.5-46.6 [facility] Comment on above: Performed By: #### 1 [id number] #### [facility] [address] [place] [address] Hemoglobin mass conc (Bld) 14.3 g/dL Normal 11.8-15.3 [facility] Comment on above: Performed By: #### 1 [id number] #### [facility] [address] [place] [address] MCH Entitic mass (RBC) 26.1 pg Low 27.5-33.0 [facility] Comment on above: Performed By: #### 1 [id number] #### [facility] [address] [place] [address] MCHC mass conc (RBC) 30.0 g/dL Low 30.1-35.0 [facility] Comment on above: Performed By: #### 1 [id number] #### [facility] [address] [place] [address]346 MCV Entitic volume (RBC) 86.9 fL Normal 85.4-100.0 [facility] Comment on above: Performed By: #### 1 [id number] #### [facility] [address] [place] [address] NRBC Absolute 0.00 10*3/uL Normal [facility] Comment on above: Performed By: #### 1 [id number] #### [facility] [address] [place] [address] NRBC Automated 0.0 /100{WBCs} Normal [facility] Comment on above: Performed By: #### 1 [id number] #### [facility] [address] [place] [address] Platelet mean volume Entitic volume (Bld) 13.7 fL High 9.9-12.1 [facility] Comment on above: Performed By: #### 1 [id number] #### [facility] [address] [place] [address] 51331 Platelets #/vol (Bld) 223 10*3/uL Normal 155-404 [facility] Comment on above: Performed By: #### 1 [id number] #### [facility] [address] [place] [address] 29133 RBC #/vol (Bld) 5.48 10*6/uL High 3.85-5.10 [facility] Comment on above: Performed By: #### 1 [id number] #### [facility] [address] [place] [address] RDW SD 50.1 fL High 39.3-48.6 [facility] Comment on above: Performed By: #### 1 [id number] #### [facility] [address] [place] [address] 88841 WBC #/vol (Bld) 12.6 10*3/uL High 4.4-9.9 [facility] Comment on above: Performed By: #### 1 [id number] #### [facility] [address] [place] [address] 70675 Prothrombin Timeon 8 INR Coag RelTime (PPP) 3.04 {INR} High 0.90-1.10 [facility] Comment on above: Performed By: #### 1 [id number] #### [facility] [address] [place] [address] 59844 Prothrombin time (PT) Coag time (PPP) 35.1 s High 9.7-12.7 [facility] Comment on above: Result Comment: MEGAN RUBIN NOTE NEW REFERENCE RANGE EFFECTIVE 2018 Performed By: #### 1 [id number] #### [facility] [address] [place] [address]14[address] Basic Metabolic Panelon 11-0 Anion gap molar conc 11 mmol/L Normal 10-20 [facility] Comment on above: Performed By: #### 1 [id number] #### [facility] [address] [place] [address] 83910 Calcium mass conc 9.0 mg/dL Normal 8.6-10.3 [facility] Comment on above: Performed By: #### 1 [id number] #### [facility] [address] [place] [address] 83278 Chloride molar conc 99 mmol/L Normal 98-107 [facility] Comment on above: Performed By: #### 1 438239 #### [facility] [address] [place] [address] 46625 Creatinine mass conc 1.00 mg/dL Normal 0.50-1.05 [facility] Comment on above: Performed By: #### 1 [id number] #### [facility] [address] [place] [address] 04305 GFR/1.73 sq M.predicted MDRD vol rate/area 59 mL/min/{1.73_m2} Normal [facility] Comment on above: Result Comment: Inte rpretation for Chronic Kidney Disease: Stages 1&2 >60 Healthy or potential kidney damage. Mild decrease of GFR. Stage 3 30-59 Moderate decrease of GFR. Stage 4 15-29 Severe decrease of GFR. Stage 5 <15 Kidney failure or on dialysis. Performed By: #### 1 [id number] #### [facility] [address] [place] [address] Glucose mass conc 81 mg/dL Normal 70-100 [facility] Comment on above: Performed By: #### 1 [id number] #### [facility] [address] [place] [address] HCO3 molar conc (Bld) 27 mmol/L Normal 21-32 [facility] Comment on above: Performed By: #### 1 [id number] #### [facility] [address] [place] [address] Potassium molar conc 4.1 mmol/L Normal 3.5-5.1 [facility] Comment on above: Performed By: #### 1 [id number] #### [facility] [address] [place] [address] Sodium molar conc 133 mmol/L Low 136-145 [facility] Comment on above: Performed By: #### 1 [id number] #### [facility] [address] [place] [address] 22696 Urea nitrogen mass conc 14 mg/dL Normal 6-23 [facility] Comment on above: Performed By: #### 1 [id number] #### [facility] [address] [place] [address] Urea nitrogen/Creatinine mass ratio 14 mg/mg Normal 5-25 [facility] Comment on above: Performed By: #### 1 [id number] #### [facility] [address] [place] [address] Magnesiumon 07-01-2018 Magnesium mass conc 1.9 mg/dL Normal 1.6-2.4 [facility] Comment on above: Performed By: #### 1 [id number] #### [facility] [address] [place] [address] Prothrombin Timeon 8 INR Coag RelTime (PPP) 3.10 {INR} High 0.90-1.10 [facility] Comment on above: Performed By: #### 1 [id number] #### [facility] [address] [place] [address] 02864 Prothrombin time (PT) Coag time (PPP) 35.8 s High 9.7-12.7 [facility] Comment on above: Result Comment: MEGAN RUBIN NOTE NEW REFERENCE RANGE EFFECTIVE 2018 Performed By: #### 1 [id number] #### [facility] [address] [place] [address] 26231 Basic Metabolic Panelon 11-0 Anion gap molar conc 12 mmol/L Normal 10-20 [facility] Comment on above: Performed By: #### 1 [id number] #### [facility] [address] [place] [address] 08467 Calcium mass conc 9.0 mg/dL Normal 8.6-10.3 [facility] Comment on above: Performed By: #### 1 [id number] #### [facility] [address] [place] [address] 53505 Chloride molar conc 101 mmol/L Normal 98-107 [facility] Comment on above: Performed By: #### 1 [id number] #### [facility] [address] [place] [address] 40447 Creatinine mass conc 1.04 mg/dL Normal 0.50-1.05 [facility] Comment on above: Performed By: #### 1 [id number] #### [facility] [address] [place] [address] 17542 GFR/1.73 sq M.predicted MDRD vol rate/area 56 mL/min/{1.73_m2} Normal [facility] Comment on above: Result Comment: Inte rpretation for Chronic Kidney Disease: Stages 1&2 >60 Healthy or potential kidney damage. Mild decrease of GFR. Stage 3 30-59 Moderate decrease of GFR. Stage 4 15-29 Severe decrease of GFR. Stage 5 <15 Kidney failure or on dialysis. Performed By: #### 1 [id number] #### [facility] [address] [place] [address] Glucose mass conc 89 mg/dL Normal 70-100 [facility] Comment on above: Performed By: #### 1 [id number] #### [facility] [address] [place] [address] HCO3 molar conc (Bld) 25 mmol/L Normal 21-32 [facility] Comment on above: Performed By: #### 1 [id number] #### [facility] [address] [place] [address] Potassium molar conc 4.3 mmol/L Normal 3.5-5.1 [facility] Comment on above: Performed By: #### 1 [id number] #### [facility] [address] [place] [address] 12073 Sodium molar conc 134 mmol/L Low 136-145 [facility] Comment on above: Performed By: #### 1 [id number] #### [facility] [address] [place] [address] 24387 Urea nitrogen mass conc 12 mg/dL Normal 6-23 [facility] Comment on above: Performed By: #### 1 [id number] #### [facility] [address] [place] [address] 00786 Urea nitrogen/Creatinine mass ratio 12 mg/mg Normal 5-25 [facility] Comment on above: Performed By: #### 1 [id number] #### [facility] [address] [place] [address] 30732 Magnesiumon 06-30-2018 Magnesium mass conc 2.0 mg/dL Normal 1.6-2.4 [facility] Comment on above: Performed By: #### 1 [id number] #### [facility] [address] [place] [address] 51058 Prothrombin Timeon 8 INR Coag RelTime (PPP) 2.93 {INR} High 0.90-1.10 [facility] Comment on above: Performed By: #### 2 [id number] #### [facility] [address] [place] [address] Prothrombin time (PT) Coag time (PPP) 33.9 s High 9.7-12.7 [facility] Comment on above: Result Comment: MEGAN RUBIN NOTE NEW REFERENCE RANGE EFFECTIVE 2018 Performed By: #### 2 [id number] #### [facility] [address] [place] [address] 49825 Basic Metabolic Panelon 10-3 Anion gap molar conc 8 mmol/L Low 10-20 [facility] Comment on above: Performed By: #### 2 [id number] #### [facility] [address] [place] [address] Calcium mass conc 8.7 mg/dL Normal 8.6-10.3 [facility] Comment on above: Performed By: #### 2 [id number] #### [facility] [address] [place] [address] 31908 Chloride molar conc 103 mmol/L Normal 98-107 [facility] Comment on above: Performed By: #### 2 [id number] #### [facility] [address] [place] [address] Creatinine mass conc 0.89 mg/dL Normal 0.50-1.05 [facility] Comment on above: Performed By: #### 2 [id number] #### [facility] [address] [place] [address] 18500 GFR/1.73 sq M.predicted MDRD vol rate/area mL/min/{1.73_m2} Normal [facility] Comment on above: Result Comment: Inte rpretation for Chronic Kidney Disease: Stages 1&2 >60 Healthy or potential kidney damage. Mild decrease of GFR. Stage 3 30-59 Moderate decrease of GFR. Stage 4 15-29 Severe decrease of GFR. Stage 5 <15 Kidney failure or on dialysis. Performed By: #### 2 [id number] #### [facility] [address] [place] [address] Glucose mass conc 125 mg/dL High 70-100 [facility] Comment on above: Performed By: #### 2 [id number] #### [facility] [address] [place] [address] HCO3 molar conc (Bld) 26 mmol/L Normal 21-32 [facility] Comment on above: Performed By: #### 2 475951 #### [facility] [address] [place] [address] Potassium molar conc 4.0 mmol/L Normal 3.5-5.1 [facility] Comment on above: Performed By: #### 2 [id number] #### [facility] [address] [place] [address] Sodium molar conc 133 mmol/L Low 136-145 [facility] Comment on above: Performed By: #### 2 [id number] #### [facility] [address] [place] [address] Urea nitrogen mass conc 10 mg/dL Normal 6-23 [facility] Comment on above: Performed By: #### 2 [id number] #### [facility] [address] [place] [address] Urea nitrogen/Creatinine mass ratio 11 mg/mg Normal 5-25 [facility] Comment on above: Performed By: #### 2 [id number] #### [facility] [address] [place] [address] Magnesiumon 06-29-2018 Magnesium mass conc 1.8 mg/dL Normal 1.6-2.4 [facility] Comment on above: Performed By: #### 2 [id number] #### [facility] [address] [place] [address] Prothrombin Timeon 8 INR Coag RelTime (PPP) 3.23 {INR} High 0.90-1.10 [facility] Comment on above: Performed By: #### 2 [id number] #### [facility] [address] [place] [address] Prothrombin time (PT) Coag time (PPP) 37.4 s High 9.7-12.7 [facility] Comment on above: Result Comment: MEGAN RUBIN NOTE NEW REFERENCE RANGE EFFECTIVE 2018 Performed By: #### 2 [id number] #### [facility] [address] [place] [address] Basic Metabolic Panelon 06-01 Anion gap molar conc 11 mmol/L Normal 10-20 [facility] Comment on above: Performed By: #### 2 [id number] #### [facility] [address] [place] [address] Calcium mass conc 8.5 mg/dL Low 8.6-10.3 [facility] Comment on above: Performed By: #### 2 [id number] #### [facility] [address] [place] [address] Chloride molar conc 104 mmol/L Normal 98-107 [facility] Comment on above: Performed By: #### 2 485166 #### [facility] [address] [place] [address] Creatinine mass conc 0.90 mg/dL Normal 0.50-1.05 [facility] Comment on above: Performed By: #### 2 [id number] #### [facility] [address] [place] [address] GFR/1.73 sq M.predicted MDRD vol rate/area mL/min/{1.73_m2} Normal [facility] Comment on above: Result Comment: Inte rpretation for Chronic Kidney Disease: Stages 1&2 >60 Healthy or potential kidney damage. Mild decrease of GFR. Stage 3 30-59 Moderate decrease of GFR. Stage 4 15-29 Severe decrease of GFR. Stage 5 <15 Kidney failure or on dialysis. Performed By: #### 2 [id number] #### [facility] [address] [place] [address] 78252 Glucose mass conc 99 mg/dL Normal 70-100 [facility] Comment on above: Performed By: #### 2 [id number] #### [facility] [address] [place] [address] HCO3 molar conc (Bld) 23 mmol/L Normal 21-32 [facility] Comment on above: Performed By: #### 2 [id number] #### [facility] [address] [place] [address] Potassium molar conc 4.3 mmol/L Normal 3.5-5.1 [facility] Comment on above: Performed By: #### 2 [id number] #### [facility] [address] [place] [address] Sodium molar conc 134 mmol/L Low 136-145 [facility] Comment on above: Performed By: #### 2 [id number] #### [facility] [address] [place] [address] Urea nitrogen mass conc 15 mg/dL Normal 6-23 [facility] Comment on above: Performed By: #### 2 [id number] #### [facility] [address] [place] [address] Urea nitrogen/Creatinine mass ratio 17 mg/mg Normal 5-25 [facility] Comment on above: Performed By: #### 2 [id number] #### [facility] [address] [place] [address] Magnesiumon 06-28-2018 Magnesium mass conc 1.9 mg/dL Normal 1.6-2.4 [facility] Comment on above: Performed By: #### 2 [id number] #### [facility] [address] [place] [address] Prothrombin Timeon 8 INR Coag RelTime (PPP) 4.27 {INR} High 0.90-1.10 [facility] Comment on above: Performed By: #### 2 [id number] #### [facility] [address] [place] [address] Prothrombin time (PT) Coag time (PPP) 49.7 s High 9.7-12.7 [facility] Comment on above: Result Comment: PLEA SE NOTE NEW REFERENCE RANGE EFFECTIVE 2018 Performed By: #### 2 [id number] #### [facility] [address] [place] [address] Basic Metabolic Panelon 05-31 Anion gap molar conc 12 mmol/L Normal 10-20 [facility] Comment on above: Performed By: #### 2 [id number] #### [facility] [address] [place] [address] Calcium mass conc 8.4 mg/dL Low 8.6-10.3 [facility] Comment on above: Performed By: #### 2 [id number] #### [facility] [address] [place] [address] Chloride molar conc 109 mmol/L High 98-107 [facility] Comment on above: Performed By: #### 2 [id number] #### [facility] [address] [place] [address] Creatinine mass conc 1.04 mg/dL Normal 0.50-1.05 [facility] Comment on above: Performed By: #### 2 [id number] #### [facility] [address] [place] [address] GFR/1.73 sq M.predicted MDRD vol rate/area 56 mL/min/{1.73_m2} Normal [facility] Comment on above: Result Comment: Inte rpretation for Chronic Kidney Disease: Stages 1&2 >60 Healthy or potential kidney damage. Mild decrease of GFR. Stage 3 30-59 Moderate decrease of GFR. Stage 4 15-29 Severe decrease of GFR. Stage 5 <15 Kidney failure or on dialysis. Performed By: #### 2 [id number] #### [facility] [address] [place] [address] Glucose mass conc 84 mg/dL Normal 70-100 [facility] Comment on above: Performed By: #### 2 [id number] #### [facility] [address] [place] [address] HCO3 molar conc (Bld) 21 mmol/L Normal 21-32 [facility] Comment on above: Performed By: #### 2 [id number] #### [facility] [address] [place] [address] Potassium molar conc 4.5 mmol/L Normal 3.5-5.1 [facility] Comment on above: Performed By: #### 2 [id number] #### [facility] [address] [place] [address] Sodium molar conc 138 mmol/L Normal 136-145 [facility] Comment on above: Performed By: #### 2 [id number] #### [facility] [address] [place] [address] Urea nitrogen mass conc 16 mg/dL Normal 6-23 [facility] Comment on above: Performed By: #### 2 [id number] #### [facility] [address] [place] [address] Urea nitrogen/Creatinine mass ratio 15 mg/mg Normal 5-25 [facility] Comment on above: Performed By: #### 2 [id number] #### [facility] [address] [place] [address] Anion gap molar conc 10 mmol/L Normal 10-20 [facility] Comment on above: Performed By: #### 2 [id number] #### [facility] [address] [place] [address] Calcium mass conc 8.6 mg/dL Normal 8.6-10.3 [facility] Comment on above: Performed By: #### 2 [id number] #### [facility] [address] [place] [address] Chloride molar conc 107 mmol/L Normal 98-107 [facility] Comment on above: Performed By: #### 2 [id number] #### [facility] [address] [place] [address] Creatinine mass conc 1.05 mg/dL Normal 0.50-1.05 [facility] Comment on above: Performed By: #### 2 [id number] #### [facility] [address] [place] [address] GFR/1.73 sq M.predicted MDRD vol rate/area 56 mL/min/{1.73_m2} Normal [facility] Comment on above: Result Comment: Inte rpretation for Chronic Kidney Disease: Stages 1&2 >60 Healthy or potential kidney damage. Mild decrease of GFR. Stage 3 30-59 Moderate decrease of GFR. Stage 4 15-29 Severe decrease of GFR. Stage 5 <15 Kidney failure or on dialysis. Performed By: #### 2 [id number] #### [facility] [address] [place] [address] Glucose mass conc 95 mg/dL Normal 70-100 [facility] Comment on above: Performed By: #### 2 [id number] #### [facility] [address] [place] [address] HCO3 molar conc (Bld) 26 mmol/L Normal 21-32 [facility] Comment on above: Performed By: #### 2 [id number] #### [facility] [address] [place] [address] Potassium molar conc 4.3 mmol/L Normal 3.5-5.1 [facility] Comment on above: Performed By: #### 2 [id number] #### [facility] [address] [place] [address] Sodium molar conc 139 mmol/L Normal 136-145 [facility] Comment on above: Performed By: #### 2 [id number] #### [facility] [address] [place] [address] Urea nitrogen mass conc 17 mg/dL Normal 6-23 [facility] Comment on above: Performed By: #### 2 [id number] #### [facility] [address] [place] [address] Urea nitrogen/Creatinine mass ratio 16 mg/mg Normal 5-25 [facility] Comment on above: Performed By: #### 2 [id number] #### [facility] [address] [place] [address] CBC With Differentialon 05-31 Basophils #/vol (Bld) 0.11 10*3/uL High 0.01-0.07 [facility] Comment on above: Performed By: #### 2 [id number] #### [facility] [address] [place] [address] Basophils/100 WBC (Bld) 1.2 % Normal 0.1-1.2 [facility] Comment on above: Performed By: #### 2 [id number] #### [facility] [address] [place] [address] Eosinophils #/vol (Bld) 0.45 10*3/uL Normal 0.04-0.50 [facility] Comment on above: Performed By: #### 2 [id number] #### [facility] [address] [place] [address] Eosinophils/100 WBC (Bld) 4.7 % Normal 0.0-8.1 [facility] Comment on above: Performed By: #### 2 [id number] #### [facility] [address] [place] [address] Erythrocyte distribution width Ratio (RBC) 15.7 % High 12.0-15.4 [facility] Comment on above: Performed By: #### 2 [id number] #### [facility] [address] [place] [address] Hematocrit Volume Fraction (Bld) 38.5 % Normal 36.5-46.6 [facility] Comment on above: Performed By: #### 2 530265 #### [facility] [address] [place] [address] Hemoglobin mass conc (Bld) 11.9 g/dL Normal 11.8-15.3 [facility] Comment on above: Performed By: #### 2 [id number] #### [facility] [address] [place] [address] Imm Grans Absolute 0.09 10*3/uL Normal 0.00-0.21 [facility] Comment on above: Performed By: #### 2 [id number] #### [facility] [address] [place] [address] Immature granulocytes #/vol (Bld) 0.9 % Normal [facility] Comment on above: Performed By: #### 2 [id number] #### [facility] [address] [place] [address] Lymphocytes #/vol (Bld) 3.15 10*3/uL High 0.40-2.84 [facility] Comment on above: Performed By: #### 2 [id number] #### [facility] [address] [place] [address] Lymphocytes/100 WBC (Bld) 33.2 % Normal 15.7-50.5 [facility] Comment on above: Performed By: #### 2 [id number] #### [facility] [address] [place] [address] MCH Entitic mass (RBC) 26.1 pg Low 27.5-33.0 [facility] Comment on above: Performed By: #### 2 [id number] #### [facility] [address] [place] [address] MCHC mass conc (RBC) 30.9 g/dL Normal 30.1-35.0 [facility] Comment on above: Performed By: #### 2 [id number] #### [facility] [address] [place] [address] MCV Entitic volume (RBC) 84.4 fL Low 85.4-100.0 [facility] Comment on above: Performed By: #### 2 [id number] #### [facility] [address] [place] [address] Monocytes #/vol (Bld) 0.91 10*3/uL High 0.25-0.83 [facility] Comment on above: Performed By: #### 2 [id number] #### [facility] [address] [place] [address] Monocytes/100 WBC (Bld) 9.6 % Normal 4.8-12.7 [facility] Comment on above: Performed By: #### 2 [id number] #### [facility] [address] [place] [address] Neutrophils Absolute 4.78 10*3/uL Normal 1.95-6.85 [facility] Comment on above: Performed By: #### 2 [id number] #### [facility] [address] [place] [address] Neutrophils/100 WBC (Bld) 50.4 % Normal 36.8-73.2 [facility] Comment on above: Performed By: #### 2 [id number] #### [facility] [address] [place] [address] NRBC Absolute 0.00 10*3/uL Normal [facility] Comment on above: Performed By: #### 2 [id number] #### [facility] [address] [place] [address] NRBC Automated 0.0 /100{WBCs} Normal [facility] Comment on above: Performed By: #### 2 [id number] #### [facility] [address] [place] [address] Platelet mean volume Entitic volume (Bld) 11.1 fL Normal 9.9-12.1 [facility] Comment on above: Performed By: #### 2 [id number] #### [facility] [address] [place] [address] Platelets #/vol (Bld) 215 10*3/uL Normal 155-404 [facility] Comment on above: Performed By: #### 2 [id number] #### [facility] [address] [place] [address] RBC #/vol (Bld) 4.56 10*6/uL Normal 3.85-5.10 [facility] Comment on above: Performed By: #### 2 [id number] #### [facility] [address] [place] [address] RDW SD 48.0 fL Normal 39.3-48.6 [facility] Comment on above: Performed By: #### 2 [id number] #### [facility] [address] [place] [address] WBC #/vol (Bld) 9.5 10*3/uL Normal 4.4-9.9 [facility] Comment on above: Performed By: #### 2 [id number] #### [facility] [address] [place] [address] Comprehensive Metabolic Pane siddharth 06-27-2018 Albumin mass conc 3.9 g/dL Normal 3.4-5.0 [facility] Comment on above: Performed By: #### 1 [id number] #### [facility] [address] [place] [address] Albumin/Globulin mass ratio 1.3 {ratio} Normal 0.9-2.4 [facility] Comment on above: Performed By: #### 1 [id number] #### [facility] [address] [place] [address] ALP enzyme act/vol 150 U/L High 45-117 [facility] Comment on above: Performed By: #### 1 [id number] #### [facility] [address] [place] [address] ALT enzyme act/vol 11 U/L Normal 7-45 [facility] Comment on above: Performed By: #### 1 [id number] #### [facility] [address] [place] [address] Anion gap molar conc 13 mmol/L Normal 10-20 [facility] Comment on above: Performed By: #### 1 [id number] #### [facility] [address] [place] [address] AST enzyme act/vol 21 U/L Normal 13-39 [facility] Comment on above: Performed By: #### 1 [id number] #### [facility] [address] [place] [address] Bilirubin mass conc 0.3 mg/dL Normal 0.0-1.2 [facility] Comment on above: Performed By: #### 1 [id number] #### [facility] [address] [place] [address] Calcium mass conc 9.0 mg/dL Normal 8.6-10.3 [facility] Comment on above: Performed By: #### 1 [id number] #### [facility] [address] [place] [address] Chloride molar conc 103 mmol/L Normal 98-107 [facility] Comment on above: Performed By: #### 1 [id number] #### [facility] [address] [place] [address] Creatinine mass conc 1.09 mg/dL High 0.50-1.05 [facility] Comment on above: Performed By: #### 1 [id number] #### [facility] [address] [place] [address] GFR/1.73 sq M.predicted MDRD vol rate/area 53 mL/min/{1.73_m2} Normal [facility] Comment on above: Result Comment: Inte rpretation for Chronic Kidney Disease: Stages 1&2 >60 Healthy or potential kidney damage. Mild decrease of GFR. Stage 3 30-59 Moderate decrease of GFR. Stage 4 15-29 Severe decrease of GFR. Stage 5 <15 Kidney failure or on dialysis. Performed By: #### 1 [id number] #### [facility] [address] [place] [address] Glucose mass conc 94 mg/dL Normal 70-100 [facility] Comment on above: Performed By: #### 1 [id number] #### [facility] [address] [place] [address] HCO3 molar conc (Bld) 27 mmol/L Normal 21-32 [facility] Comment on above: Performed By: #### 1 [id number] #### [facility] [address] [place] [address] Potassium molar conc 4.3 mmol/L Normal 3.5-5.1 [facility] Comment on above: Performed By: #### 1 [id number] #### [facility] [address] [place] [address] Protein mass conc 6.8 g/dL Normal 6.4-8.2 [facility] Comment on above: Performed By: #### 1 [id number] #### [facility] [address] [place] [address] Sodium molar conc 139 mmol/L Normal 136-145 [facility] Comment on above: Performed By: #### 1 [id number] #### [facility] [address] [place] [address] Urea nitrogen mass conc 19 mg/dL Normal 6-23 [facility] Comment on above: Performed By: #### 1 [id number] #### [facility] [address] [place] [address] Urea nitrogen/Creatinine mass ratio 17 mg/mg Normal 5-25 [facility] Comment on above: Performed By: #### 1 [id number] #### [facility] [address] [place] [address] Magnesiumon 06-27-2018 Magnesium mass conc 2.0 mg/dL Normal 1.6-2.4 [facility] Comment on above: Performed By: #### 2 [id number] #### [facility] [address] [place] [address] Magnesium mass conc 1.9 mg/dL Normal 1.6-2.4 [facility] Comment on above: Performed By: #### 1 [id number] #### [facility] [address] [place] [address] Partial Thromboplastin Timeo n 06-27-2018 aPTT Coag time (Bld) 29.7 s Normal 25.0-36.0 [facility] Comment on above: Result Comment: . The APTT is no longer used for monitoring Unfractionated Heparin Therapy. For monitoring Heparin Therapy, use the Heparin Assay. Performed By: #### 3 [id number] #### [facility] [address] [place] [address] Prothrombin Timeon 10-29-201 8 INR Coag RelTime (PPP) 3.54 {INR} High 0.90-1.10 [facility] Comment on above: Performed By: #### 3 [id number] #### [facility] [address] [place] [address] Prothrombin time (PT) Coag time (PPP) 41.0 s High 9.7-12.7 [facility] Comment on above: Result Comment: MEGAN RUBIN NOTE NEW REFERENCE RANGE EFFECTIVE 2018 Performed By: #### 3 [id number] #### [facility] [address] [place] [address] INR Coag RelTime (PPP) 2.98 {INR} High 0.90-1.10 [facility] Comment on above: Performed By: #### 3 [id number] #### [facility] [address] [place] [address] Prothrombin time (PT) Coag time (PPP) 33.4 s High 9.8-12.7 [facility] Comment on above: Performed By: #### 3 [id number] #### [facility] [address] [place] [address] TSHon 06-27-2018 Thyrotropin Qn 7.04 mU/L High 0.44-3.98 [facility] Comment on above: Performed By: #### 1 [id number] #### [facility] [address] [place] [address] Thyroxine, Freeon 06-27-2018 Thyroxine, Free 0.90 ng/dL Normal 0.61-1.12 [facility] Comment on above: Performed By: #### 1 [id number] #### [facility] [address] [place] [address] Triiodothyronine, Freeon Triiodothyronine, Free 2.3 pg/mL Normal 1.8-4.2 [facility] Comment on above: Performed By: #### F RT3 #### [facility] [address] [place] [address] Drugs of Abuse, Urine(7)on 0 05-12-2018 Amphetamines/Metamphet amines, Urine Not Detected Normal [facility] Comment on above: Performed By: #### 7 [id number] #### [facility] [address] [facility] [address] Barbiturates, Urine Detected Abnormal [facility] Comment on above: Performed By: #### 7 [id number] #### [facility] [address] [facility] [address] Benzodiazepines, Urine Not Detected Normal [facility] Comment on above: Performed By: #### 7 [id number] #### [facility] [address] [place] [address] Cannabinoids, Urine Not Detected Normal [facility] Comment on above: Performed By: #### 7 [id number] #### [facility] [address] [place] [address] Cocaine, Urine Not Detected Normal [facility] Comment on above: Performed By: #### 7 [id number] #### [facility] [address] [place] [address] Methadone, Urine Not Detected Normal [facility] Comment on above: Performed By: #### 7 [id number] #### [facility] [address] [place] [address] Opiates, Urine Not Detected Normal [facility] Comment on above: Performed By: #### 7 [id number] #### [facility] [address] [place] [address] PCP, Urine Not Detected Normal [facility] [...] 150 PCP 25 Performed By: #### 7 [id number] #### [facility] [address] [place] [address] Vital Signs Date Time Vital Sign Value Performing Clinician Facility 03-30-2024 11:54-0400 Body temperature 97.4 [degF] MD Tanner Mae Work Phone: [facility] 03-30-2024 11:54-0400 Diastolic blood pressure 74 mm[Hg] MD Tanner Mae Jr Work Phone: [facility] 03-30-2024 11:54-0400 Heart rate 81 /min MD Tanner Mae Jr Work Phone: [facility] 03-30-2024 11:54-0400 Respiratory rate 16 /min MD Tanner Mae Jr Work Phone: [facility] 03-30-2024 11:54-0400 SaO2% (BldA) [Mass fraction] 98 % MD Tanner Mae Jr Work Phone: [facility] 03-30-2024 11:54-0400 Systolic blood pressure 113 mm[Hg] MD Tanner Mae Jr Work Phone: [facility] 03-30-2024 03:37-0400 Body height 162.56 cm MD Tanner Mae Jr Work Phone: [facility] 03-30-2024 03:37-0400 Body weight 70.6 kg MD Tanner Mae Jr Work Phone: [facility] 03-30-2024 02:07-0400 Diastolic blood pressure 68 mm[Hg] MD Tanner Mae Jr Work Phone: [facility] 03-30-2024 02:07-0400 Heart rate 80 /min MD Tanner Mae Jr Work Phone: [facility] 03-30-2024 02:07-0400 Systolic blood pressure 157 mm[Hg] MD Tanner Mae Jr Work Phone: [facility] 03-30-2024 02:05-0400 Respiratory rate 16 /min MD Tanner Mae Jr Work Phone: [facility] 03-30-2024 02:05-0400 SaO2% (BldA) [Mass fraction] 99 % MD Tanner Mae Jr Work Phone: [facility] 03-29-2024 23:32-0400 Body height 162.56 cm MD Tanner Mae Jr Work Phone: [facility] 03-29-2024 23:32-0400 Body weight 70.9 kg MD Tanner Mae Jr Work Phone: [facility] 03-29-2024 23:30-0400 Body temperature 98 [degF] MD Tanner Mae Jr Work Phone: [facility] 02-22-2024 11:20-0400 Body height 152.4 cm MD Tanner Mae Jr Work Phone: [facility] 02-22-2024 11:20-0400 Diastolic blood pressure 72 mm[Hg] MD Tanner Mae Jr Work Phone: [facility] 02-22-2024 11:20-0400 Heart rate 80 /min MD Tanner Mae Jr Work Phone: [facility] 02-22-2024 11:20-0400 SaO2% (BldA) [Mass fraction] 98 % MD Tanner Mae Jr Work Phone: [facility] 02-22-2024 11:20-0400 Systolic blood pressure 120 mm[Hg] MD Tanner Mae Jr Work Phone: [facility] 02-18-2024 09:48-0400 Body height 152.4 cm MD Tanner Mae Jr Work Phone: [facility] 02-18-2024 09:48-0400 Body mass index (BMI) [Ratio] 29.5 kg/m2 MD Tanner Mae Jr Work Phone: [facility] 02-18-2024 09:48-0400 Body weight 68.49 kg MD Tanner Mae Jr Work Phone: [facility] 02-18-2024 09:48-0400 Diastolic blood pressure 60 mm[Hg] MD Tanner Mae Jr Work Phone: [facility] 02-18-2024 09:48-0400 Heart rate 67 /min MD Tanner Mae Jr Work Phone: [facility] 02-18-2024 09:48-0400 SaO2% (BldA) [Mass fraction] 97 % MD Tanner Mae Jr Work Phone: [facility] 02-18-2024 09:48-0400 Systolic blood pressure 100 mm[Hg] MD Tanner Mae Jr Work Phone: [facility] 01-24-2024 07:01-0400 Diastolic blood pressure 56 mm[Hg] MD Tanner Mae Jr Work Phone: [facility] 01-24-2024 07:01-0400 Heart rate 80 /min MD Tanner Mae Jr Work Phone: [facility] 01-24-2024 07:01-0400 Respiratory rate 14 /min MD Tanner Mae Jr Work Phone: [facility] 01-24-2024 07:01-0400 SaO2% (BldA) [Mass fraction] 100 % MD Tanner Mae Jr Work Phone: [facility] 01-24-2024 07:01-0400 Systolic blood pressure 117 mm[Hg] MD Tanner Mae Jr Work Phone: [facility] 01-24-2024 00:46-0400 Body height 152.4 cm MD Tanner Mae Jr Work Phone: [facility] 01-24-2024 00:46-0400 Body temperature 97.6 [degF] MD Tanner Mae Jr Work Phone: [facility] 01-24-2024 00:46-0400 Body weight 65.31 kg MD Tanner Mae Jr Work Phone: [facility] 11-11-2023 16:14-0400 Body height 152.4 cm DO Dariandebbie Smiley Work Phone: [facility] 11-11-2023 16:14-0400 Body mass index (BMI) [Ratio] 29.2 kg/m2 DO Darian Itzkoj luis Work Phone: [facility] 11-11-2023 16:14-0400 Body temperature 97.8 [degF] DO Darian Itzkowitz Work Phone: [facility] 11-11-2023 16:14-0400 Body weight 68.03 kg DO Darian Itzkowitz Work Phone: [facility] 11-11-2023 16:14-0400 Diastolic blood pressure 68 mm[Hg] DO Darian Itzkowitz Work Phone: [facility] 11-11-2023 16:14-0400 Heart rate 88 /min DO Darian Itzkowitz Work Phone: [facility] 11-11-2023 16:14-0400 Respiratory rate 18 /min DO Darian Itzkowitz Work Phone: [facility] 11-11-2023 16:14-0400 SaO2% (BldA) [Mass fraction] 99 % DO Darian Itzkowitz Work Phone: [facility] 11-11-2023 16:14-0400 Systolic blood pressure 134 mm[Hg] DO Darian Itzkowitz Work Phone: [facility] 10-07-2023 08:44-0500 Diastolic blood pressure 77 mm[Hg] Noman Glover MD Work Phone: [employer] 10-07-2023 08:44-0500 Heart rate 80 /min Noman Glover MD Work Phone: [employer] 10-07-2023 08:44-0500 Systolic blood pressure 113 mm[Hg] Noman Glover MD Work Phone: [employer] 10-07-2023 08:00-0500 Body temperature 99.3 [degF] Noman Glover MD Work Phone: [employer] 10-07-2023 08:00-0500 Respiratory rate 18 /min Noman Glover MD Work Phone: [employer] 10-07-2023 08:00-0500 SaO2% (BldA) [Mass fraction] 97 % Noman Glover MD Work Phone: [facility] [facility] 10-06-2023 04:41-0500 Body mass index (BMI) [Ratio] 26.61 kg/m2 Noman Glover MD Work Phone: [facility] [employer] 10-06-2023 04:41-0500 Body weight 66 kg Noman Glover MD Work Phone: [facility] Mobile Secretary 10-05-2023 19:24-0500 Body height 157.5 cm Noman Glover MD Work Phone: [facility] Mobile Secretary 09-29-2023 08:20-0500 SaO2% (BldA) [Mass fraction] 98 % Margareth Nunez MD Work Phone: [facility] 09-29-2023 06:08-0500 Body height 157.5 cm Margareth Nunez MD Work Phone: [facility] 09-29-2023 06:08-0500 Body mass index (BMI) [Ratio] 27.46 kg/m2 Margareth Nunez MD Work Phone: [facility] 09-29-2023 06:08-0500 Body temperature 98.8 [degF] Margareth Nunez MD Work Phone: [facility] 09-29-2023 06:08-0500 Body weight 68.1 kg Margareth Nunez MD Work Phone: [facility] 09-29-2023 06:08-0500 Diastolic blood pressure 63 mm[Hg] Margareth Nunez MD Work Phone: [facility] 09-29-2023 06:08-0500 Heart rate 81 /min Margareth Nunez MD Work Phone: [facility] 09-29-2023 06:08-0500 Respiratory rate 16 /min Margareth Nunez MD Work Phone: [facility] 09-29-2023 06:08-0500 Systolic blood pressure 119 mm[Hg] Margareth Nunez MD Work Phone: [facility] 04-24-2022 13:31-0400 Body height 157.48 cm Shaikh Mallorywad Work Phone: [facility] DO Work Phone: 04-24-2022 13:31-0400 Body mass index (BMI) [Ratio] 29.63 kg/m2 Shaikh Mallorywad Work Phone: [facility] DO Work Phone: 04-24-2022 13:31-0400 Body surface area Derived from formula 1.75 m2 Shaikh Mallorywad Work Phone: [facility] DO Work Phone: 04-24-2022 13:31-0400 Body weight 73.48 kg Shaikh Mallorywad Work Phone: [facility] DO Work Phone: 04-24-2022 13:31-0400 Diastolic blood pressure 60 mm[Hg] Shaikh Mallorywad Work Phone: [facility] DO Work Phone: 04-24-2022 13:31-0400 Heart rate 85 /min Shaikh Sherifwwad Work Phone: [facility] DO Work Phone: 04-24-2022 13:31-0400 Systolic blood pressure 102 mm[Hg] Shaikh Sherifwwad Work Phone: [facility] DO Work Phone: 12-10-2021 06:30-0400 Body height 160.02 cm Jeane Dykes Other [facility] [employer] Other 12-05-2021 08:47-0400 Body height 157.48 cm No PCP None [facility] DO Work Phone: 12-05-2021 08:47-0400 Body mass index (BMI) [Ratio] 27.49 kg/m2 No PCP None [facility] DO Work Phone: 12-05-2021 08:47-0400 Body surface area Derived from formula 1.69 m2 No PCP None [facility] DO Work Phone: 12-05-2021 08:47-0400 Body weight 68.18 kg No PCP None [facility] DO Work Phone: 12-05-2021 08:47-0400 Diastolic blood pressure 72 mm[Hg] No PCP None [facility] DO Work Phone: 12-05-2021 08:47-0400 Heart rate 76 /min No PCP None [facility] DO Work Phone: 12-05-2021 08:47-0400 Systolic blood pressure 104 mm[Hg] No PCP None [facility] DO Work Phone: 10-14-2021 11:23-0500 20 1 Nadir Hoskins DO Work Phone: [facility] DO Work Phone: Comment on above: [id number] 10-13-2021 22:41-0500 Diastolic blood pressure 46 mm[Hg] DO Darian Itzkowitz Work Phone: [facility] 10-13-2021 22:41-0500 Heart rate 59 /min DO Darian Itzkowitz Work Phone: [facility] 10-13-2021 22:41-0500 Systolic blood pressure 80 mm[Hg] DO Darian Itzkowitz Work Phone: [facility] 10-13-2021 21:29-0500 Respiratory rate 18 /min DO Darian Itzkowitz Work Phone: [facility] 10-13-2021 21:29-0500 SaO2% (BldA) [Mass fraction] 96 % DO Darian Itzkowitz Work Phone: [facility] 10-13-2021 13:17-0500 Body height 160.02 cm DO Darian Itzkowitz Work Phone: [facility] 10-13-2021 13:17-0500 Body mass index (BMI) [Ratio] 26.5 kg/m2 DO Darian Itzkowitz Work Phone: [facility] 10-13-2021 13:17-0500 Body temperature 97.4 [degF] DO Darian Itzkowitz Work Phone: [facility] 10-13-2021 13:17-0500 Body weight 68.03 kg DO Darian Itzkowitz Work Phone: [facility] 11-25-2020 15:56-0400 Body Temperature 97.5 [degF] Darian Itzkowitz [facility] 11-25-2020 15:56-0400 BP Diastolic 85 mm[Hg] Darian Itzkowitz [facility] 11-25-2020 15:56-0400 BP Systolic 130 mm[Hg] Darian Itzkowitz [facility] 11-25-2020 15:56-0400 Pulse (Heart Rate) 79 /min Darian Itzkowitz [facility] 11-25-2020 15:56-0400 Pulse Oximetry 98 % Dairan Itzkowitz [facility] 11-25-2020 15:56-0400 Respiratory Rate 18 /min Dariandebbie Smiley [facility] 11-25-2020 15:56-0400 SaO2% (BldA) [Mass fraction] 98 % Darian Smiley Work Phone: [facility] 11-25-2020 15:19-0400 Height 157.48 cm Darian Baljit [facility] 11-25-2020 05:57-0400 Body weight 83.9 kg [facility] Baljit [facility] 11-23-2020 18:10-0400 BMI (Body Mass Index) 33.9 kg/m2 [facility] Baljit [facility] 11-23-2020 18:10-0400 Body Temperature 97.9 [degF] [facility] Baljit [facility] 11-23-2020 18:10-0400 Body weight 84.2 kg Dariandebbie Smiley [facility] 11-23-2020 18:10-0400 BP Diastolic 81 mm[Hg] Darian Baljit [facility] 11-23-2020 18:10-0400 BP Systolic 121 mm[Hg] [facility] Baljit [facility] 11-23-2020 18:10-0400 Height 157.48 cm [facility] Baljit [facility] 11-23-2020 18:10-0400 Pulse (Heart Rate) 83 /min Dariandebbie Smiley [facility] 11-23-2020 18:10-0400 Pulse Oximetry 97 % [facility] Baljit [facility] 11-23-2020 18:10-0400 Respiratory Rate 19 /min [facility] Baljit [facility] 08-17-2020 03:00-0500 Body Temperature 97.5 [degF] [facility] Baljit [facility] 08-17-2020 03:00-0500 BP Diastolic 52 mm[Hg] Darian Baljit [facility] 08-17-2020 03:00-0500 BP Systolic 98 mm[Hg] Darian Baljit [facility] 08-17-2020 03:00-0500 Pulse (Heart Rate) 94 /min [facility] Baljit [facility] 08-17-2020 03:00-0500 Pulse Oximetry 99 % [facility] Baljit [facility] 08-17-2020 03:00-0500 Respiratory Rate 16 /min [facility] Baljit [facility] 08-16-2020 22:30-0500 BMI (Body Mass Index) 4648.4 kg/m2 [facility] Baljit [facility] 08-16-2020 22:30-0500 Body weight 81.1 kg [facility] Baljit [facility] 08-16-2020 22:30-0500 Height 13.21 cm [facility] Baljit [facility] 08-16-2020 22:18-0500 BP Diastolic 56 mm[Hg] [facility] Baljit [facility] 08-16-2020 22:18-0500 BP Systolic 107 mm[Hg] [facility] Baljit [facility] 08-16-2020 22:18-0500 Pulse (Heart Rate) 96 /min [facility] Baljit [facility] 08-16-2020 22:18-0500 Pulse Oximetry 95 % [facility] Baljit [facility] 08-16-2020 22:18-0500 Respiratory Rate 18 /min [facility]jit [facility] 08-16-2020 15:38-0500 BMI (Body Mass Index) 28.3 kg/m2 [facility] 08-16-2020 15:38-0500 Body Temperature 97.4 [degF] [facility] Itmary [facility] 08-16-2020 15:38-0500 Body weight 72.57 kg Dariandebbie Smiley [facility] 08-16-2020 15:38-0500 Height 160.02 cm Darian Baljit [facility] 07-26-2020 01:57-0500 BP Diastolic 58 mm[Hg] [facility] Baljit [facility] 07-26-2020 01:57-0500 BP Systolic 118 mm[Hg] Darian Baljit [facility] 07-26-2020 01:57-0500 Pulse (Heart Rate) 59 /min [facility] Baljit [facility] 07-26-2020 01:57-0500 Pulse Oximetry 97 % [facility] Baljit [facility] 07-26-2020 01:57-0500 Respiratory Rate 16 /min [facility] Baljit [facility] 07-26-2020 00:44-0500 BMI (Body Mass Index) 30.5 kg/m2 [facility] Baljit [facility] 07-26-2020 00:44-0500 Body Temperature 98.4 [degF] [facility] Baljit [facility] 07-26-2020 00:44-0500 Body weight 75.74 kg [facility] Baljit [facility] 07-26-2020 00:44-0500 Height 157.48 cm [facility] Baljit [facility] 07-22-2020 22:23-0500 BP Diastolic 63 mm[Hg] Darian Baljit [facility] 07-22-2020 22:23-0500 BP Systolic 131 mm[Hg] [facility] Baljit [facility] 07-22-2020 22:23-0500 Pulse (Heart Rate) 60 /min [facility] Baljit [facility] 07-22-2020 22:23-0500 Pulse Oximetry 98 % [facility] Baljit [facility] 07-22-2020 22:23-0500 Respiratory Rate 18 /min [facility] Baljit [facility] 07-22-2020 17:54-0500 BMI (Body Mass Index) 31.8 kg/m2 [facility] Baljit [facility] 07-22-2020 17:54-0500 Body Temperature 98 [degF] [facility] Baljit [facility] 07-22-2020 17:54-0500 Body weight 78.9 kg [facility] Baljit [facility] 07-22-2020 17:54-0500 Height 157.48 cm [facility] Baljit [facility] 07-19-2020 10:11-0500 BP Diastolic 60 mm[Hg] [facility] Baljit [facility] 07-19-2020 10:11-0500 BP Systolic 138 mm[Hg] [facility] Baljit [facility] 07-19-2020 10:11-0500 Pulse (Heart Rate) 94 /min [facility] Baljit [facility] 07-19-2020 10:11-0500 Pulse Oximetry 98 % [facility] Baljit [facility] 07-19-2020 10:11-0500 Respiratory Rate 16 /min [facility] Baljit [facility] 07-19-2020 07:25-0500 BMI (Body Mass Index) 30.9 kg/m2 [facility] Baljit [facility] 07-19-2020 07:25-0500 Body Temperature 98 [degF] [facility] Baljit [facility] 07-19-2020 07:25-0500 Body weight 76.7 kg [facility] Baljit [facility] 07-19-2020 07:25-0500 Height 157.48 cm [facility] Baljit [facility] 06-15-2020 21:00-0400 Body Temperature 98.1 [degF] [facility] Baljit [facility] 06-15-2020 21:00-0400 BP Diastolic 77 mm[Hg] Darian Baljit [facility] 06-15-2020 21:00-0400 BP Systolic 124 mm[Hg] Darian Baljit [facility] 06-15-2020 21:00-0400 Pulse (Heart Rate) 61 /min Darian Baljit [facility] 06-15-2020 21:00-0400 Pulse Oximetry 96 % Darian Baljit [facility] 06-15-2020 21:00-0400 Respiratory Rate 16 /min Darian Baljit [facility] 06-15-2020 17:00-0400 BMI (Body Mass Index) 30.9 kg/m2 [facility] Baljit [facility] 06-15-2020 17:00-0400 Body weight 76.7 kg [facility] Baljit [facility] 06-15-2020 17:00-0400 Height 157.48 cm Darian Baljit [facility] 06-07-2020 17:00-0400 Body Temperature 97.2 [degF] Darian Baljit [facility] 06-07-2020 17:00-0400 BP Diastolic 71 mm[Hg] Darian Baljit [facility] 06-07-2020 17:00-0400 BP Systolic 104 mm[Hg] Darian Baljit [facility] 06-07-2020 17:00-0400 Pulse (Heart Rate) 60 /min Darian Baljit [facility] 06-07-2020 17:00-0400 Pulse Oximetry 98 % Darian Baljit [facility] 06-07-2020 17:00-0400 Respiratory Rate 14 /min [facility] Baljit [facility] 06-07-2020 06:56-0400 Body weight 84.1 kg [facility] Baljit [facility] 06-05-2020 14:28-0400 Height 157.48 cm Darian abdifatahmsnate [facility] 06-05-2020 06:29-0400 BMI (Body Mass Index) 32.8 kg/m2 [facility] Encounters Encounter Date Encounter Type Care Provider Facility Start: 03-30-2024 End: 03-30-2024 ambulatory Kendrick Jorgensen Facility:[facility] Start: 03-30-2024 End: 03-30-2024 Evaluation and management of inpatient MD Tanner Mae Jr Work Phone: [facility] Work Phone: Start: 03-30-2024 End: 03-30-2024 observation encounter MD Tanner Mae Jr Work Phone: [facility] Work Phone: Start: 02-22-2024 End: 02-22-2024 ambulatory MD Tanner Mae Jr Work Phone: [facility] Work Phone: Start: 02-22-2024 End: 02-22-2024 Patient encounter procedure MD Tanner Mae Jr Work Phone: [facility] Work Phone: Start: 02-18-2024 End: 02-18-2024 ambulatory MD Tanner Mae Jr Work Phone: [facility] Work Phone: Start: 02-18-2024 End: 02-18-2024 Patient encounter procedure MD Tanner Mae Jr Work Phone: [facility]ician [facility] Work Phone: Start: 02-17-2024 Non-patient / Non-visit MD Jon Schreiber Work Phone: [facility]ician [facility] Work Phone: Start: 01-24-2024 End: 01-24-2024 Emergency department patient visit MD Tanner Mae Jr Work Phone: [facility]-Emergency Room Work Phone: Start: 01-04-2024 End: 01-07-2024 ambulatory LIAM HYMAN [facility] Start: 11-11-2023 End: 11-11-2023 ambulatory DO Darian Smiley Work Phone: [facility] Work Phone: Start: 11-11-2023 End: 11-11-2023 Patient encounter procedure DO Darian Baljit Work Phone: [facility] Work Phone: Start: 10-12-2023 End: 10-13-2023 [facility] Start: 10-12-2023 End: 10-12-2023 Subsequent hospital visit by physician Heydi Jiang [facility] Medication Management Comment on above: Longstanding persist ent atrial fibrillation (HCC) (Primary Dx) Start: 10-11-2023 End: 10-12-2023 [facility] Start: 10-11-2023 End: 10-11-2023 Subsequent hospital visit by physician Marcelo Champagne [facility] Work Phone: [facility] Medication Management Start: 10-06-2023 ambulatory Arjun EPPS Facility :[facility] Start: 10-05-2023 End: 10-07-2023 ambulatory [facility] Start: 10-05-2023 End: 10-07-2023 Emergency department patient visit Noman Glover MD Work Phone: [facility] Comment on above: Hypokalemia (Primary Dx); Dizziness; Longstanding persistent atrial fibrillation (HCC) Start: 09-29-2023 End: 09-29-[address] [facility] Start: 09-29-2023 End: 09-29-2023 Subsequent hospital visit by physician Margareth Nunez MD Work Phone: [facility] Comment on above: Biventricular implan table cardioverter-defibrillator (ICD) in situ (Primary Dx); Elective replacement of implantable cardioverter-defibrillator (ICD) battery required; Atrial tachycardia; Paroxysmal atrial fibrillation (CMS/HCC); CAD (coronary artery disease); VT (ventricular tachycardia) (CMS/HCC) Start: 09-27-2023 End: 09-27-2023 ambulatory Amanda Grace Other [employer] Other Start: 09-27-2023 Telephone encounter Amanda Herzog her [facility] Start: 09-22-2023 End: 09-22-2023 ambulatory Amanda Grace Other [employer] Other Start: 09-22-2023 Telephone encounter Amanda Herzog her [facility] Start: 09-03-2023 ambulatory [facility] Start: 09-02-2023 End: 09-03-2023 ambulatory [facility] Start: 09-02-2023 End: 09-02-2023 [facility] Start: 09-02-2023 End: 09-02-2023 Subsequent hospital visit by physician [facility] Comment on above: ICD (implantable car dioverter-defibrillator) battery depletion Start: 08-31-2023 End: 08-31-2023 ambulatory Amanda Grace Other [employer] Other Start: 08-31-2023 Telephone encounter Amanda Herzog her [facility] Start: 08-09-2023 End: 08-09-2023 Patient encounter procedure PETE Grace Work Phone: [facility]-Pacemaker Check Start: 08-09-2023 End: 08-09-2023 ambulatory [employer] Amanda Sanjay Work Phone: [facility] Work Phone: Comment on above: Persistent atrial fi brillation (HCC) (Primary Dx) Start: 08-02-2023 End: 08-02-2023 ambulatory Amanda Sanjay Other [employer] Other Start: 08-02-2023 Telephone encounter Amanda Herzog [facility] Start: 07-28-2023 Telephone encounter David Osei MD Work Phone: Cardiology Start: 07-25-2023 Follow-up encounter David Osei MD Work Phone: [facility] Start: 07-25-2023 ICD Remote F/U David fairbanks MD Work Phone: [facility] Start: 07-07-2023 ambulatory Arjun R NILL Facility : [facility] Start: 06-04-2023 ambulatory Arjun R NILL Facility : [place] Start: 06-03-2023 ambulatory Arjun NILL [facility] Start: 04-30-2023 Follow-up encounter David Osei MD Work Phone: [facility] Start: 04-30-2023 ICD Remote F/U David fairbanks MD Work Phone: [facility] Start: 04-17-2023 Follow-up encounter David Osei MD Work Phone: [facility] Start: 04-17-2023 ICD Remote F/U David fairbanks MD Work Phone: [facility] Start: 04-05-2023 Follow-up encounter David Osei MD Work Phone: [facility] Start: 04-05-2023 ICD Remote F/U David fairbanks MD Work Phone: [facility] Start: 03-29-2023 Rx Renewal Roy Crystal Work Phone: [facility] DO Work Phone: Start: 03-24-2023 Follow-up encounter David Osei MD Work Phone: [facility] Start: 03-24-2023 ICD Remote F/U David fairbanks MD Work Phone: [facility] Start: 03-20-2023 Follow-up encounter David Osei MD Work Phone: [facility] Start: 03-20-2023 ICD Remote F/U David fairbanks MD Work Phone: [facility] Start: 03-15-2023 ambulatory Margareth Nunez M.D. Facility :[id number] Start: 02-28-2023 Follow-up encounter David Osei MD Work Phone: [facility] Start: 02-28-2023 ICD Remote F/U David fairbanks MD Work Phone: [facility] Start: 02-25-2023 Follow-up encounter David Osei MD Work Phone: [facility] Start: 02-25-2023 ICD Remote F/U David fairbanks MD Work Phone: [facility] Start: 01-28-2023 AUDIT Shaikh Crystal Work Phone: [facility] DO Work Phone: Start: 01-27-2023 End: 01-27-2023 ambulatory SHAIKH Shawna ROJAS Facility: Start: 01-26-2023 Rx Renewal Shaikh Crystal Work Phone: [facility] [facility] DO Work Phone: Start: 01-03-2023 End: 01-03-2023 ambulatory ROY H FAWWAD Facility:H1 Start: 12-28-2022 End: 01-27-2023 ambulatory ROY H FAWWAD Facility:[facility] Start: 11-30-2022 End: 12-25-2022 ambulatory ROY H FAWWAD Facility:[facility] Start: 11-25-2022 Follow-up encounter David Osei MD Work Phone: [facility] Start: 11-25-2022 ICD Remote F/U David fairbanks MD Work Phone: [facility] Start: 10-28-2022 End: 11-27-2022 ambulatory [...] Follow-up encounter David Osei MD Work Phone: [facility] Start: 08-17-2022 ICD Remote F/U David fairbanks MD Work Phone: [facility] Start: 07-30-2022 End: 08-30-2022 ambulatory ROY H FAWWAD Facility:[facility] Start: 07-27-2022 ambulatory Britta Tang [facility] Comment on above: Opened In Error Start: 06-30-2022 End: 07-29-2022 ambulatory ROY H FAWWAD Facility:[facility] Start: 06-29-2022 Other [facility] Work Phone: Start: 06-29-2022 Follow-up encounter David Osei MD Work Phone: [facility] Start: 06-29-2022 ICD Remote F/U David fairbanks MD Work Phone: [facility] Start: 05-31-2022 End: 06-29-2022 ambulatory ROY H FAWWAD Facility:[facility]1 Start: 05-28-2022 Follow-up encounter David Osei MD Work Phone: [facility] Start: 05-28-2022 ICD Remote F/U David fairbanks MD Work Phone: [facility] Start: 05-06-2022 Patient encounter procedure [facility] Work Phone[facility] Start: 04-30-2022 End: 05-30-2022 ambulatory ROY H FAWWAD Facility:[facility]1 Start: 04-24-2022 Current tobacco non-user cad cap copd pv dm Roy Fawwad [facility] Work Phone: Start: 04-23-2022 End: 04-24-2022 ambulatory ROY H FAWWAD Facility:[facility] Start: 04-16-2022 End: 04-17-2022 ambulatory ROY H FAWWAD Facility:[facility] Start: 04-09-2022 Follow-up encounter David Osei MD Work Phone: [facility] Start: 04-09-2022 ICD Remote F/U David fairbanks MD Work Phone: [facility] Start: 04-07-2022 Telephone encounter No PCP None - [facility] [facility] DO Work Phone: Start: 03-30-2022 End: 04-29-2022 ambulatory [facility] Facility:[facility] Start: 03-12-2022 Rx Renewal [facility] [facility] Work Phone: Start: 03-02-2022 End: 03-27-2022 ambulatory [facility] Facility: Start: 02-24-2022 Telephone encounter No PCP None - [facility] 250 DO Work Phone: Start: 02-18-2022 Rx Renewal [facility] [facility] Work Phone: Start: 02-17-2022 Patient encounter procedure No PCP None [facility] DO Work Phone: Start: 01-22-2022 Chart Update No PCP None [facility] [address] [place] Work Phone: Start: 01-08-2022 Follow-up encounter David Osei MD Work Phone: [facility] Start: 01-08-2022 ICD Remote F/U David fairbanks MD Work Phone: [facility] Start: 01-07-2022 AUDIT No PCP None -[facility] DO Work Phone: Start: 12-31-2021 End: 12-31-2021 ambulatory Jeane Dykes Other [facility] [employer] Other Start: 12-31-2021 Telephone encounter Jeane Dykes [facility] Start: 12-26-2021 End: 12-26-2021 ambulatory Jeane Fitt Other [employer] Other Start: 12-26-2021 Telephone encounter Jeane Higuera [facility] Start: 12-23-2021 ([facility] R A/c) [facility] Repeat A/C [facility]ane Dykes [facility] [facility] Start: 12-23-2021 End: 12-23-2021 ambulatory Jeane Fitt Other [place] Other Start: 12-17-2021 (Repeat ACH) Jeane Dykes [facility] Start: 12-17-2021 End: 12-17-2021 ambulatory Jeane Fitt Other [place] Other Start: 12-17-2021 Telephone encounter Jeane Dykes [facility] Start: 12-12-2021 AUDIT No PCP None [facility] [address] DO Work Phone: Start: 12-11-2021 End: 12-11-2021 ambulatory Jeane Fitt Other [place] Other Start: 12-11-2021 Telephone encounter Jeane Higuera [facility] Start: 12-10-2021 (Repeat ACH) Jeane Dykes [facility] Start: 12-10-2021 End: 12-10-2021 ambulatory Jeane Fitt Other [place] Other Start: 12-05-2021 Current tobacco non-user cad cap copd pv dm No PCP None [facility] [address] DO Work Phone: Start: 11-26-2021 End: 11-26-2021 ambulatory Jeane Fitt Other [place] Other Start: 11-26-2021 Telephone encounter Jeane Jania Higuera [facility] Start: 11-19-2021 (Repeat ACH) Jeane Juan Ft [facility] Start: 11-19-2021 End: 11-19-2021 ambulatory Jeane Fitt Other [place] Other Start: 11-19-2021 Telephone encounter Jeane Juan Ft [facility] Start: 11-18-2021 End: 11-18-2021 ambulatory Jeane Fitt Other [place] Other Start: 11-18-2021 Telephone encounter Jeane Juan Ft [facility] Start: 11-11-2021 ([facility] R A/c) [facility] Repeat A/C Jeane Juan Ft [facility] Start: 11-11-2021 End: 11-11-2021 ambulatory Jeane Fitt Other [place] Other Start: 11-10-2021 End: 11-10-2021 ambulatory Jeane Fitt Other [place] Other Start: 11-10-2021 Telephone encounter Jeane Juan Ft [facility] Start: 11-05-2021 (Repeat ACH) Jeane Juan Ft [facility] Start: 11-05-2021 End: 11-05-2021 ambulatory Jeane Fitt Other [place] Other Start: 11-03-2021 End: 11-03-2021 ambulatory Jeane Fitt Other [place] Other Start: 11-03-2021 Telephone encounter Jeane Juan Ft [place] [facility] Start: 10-30-2021 End: 10-30-2021 ambulatory Jeane Fitt Other [place] Other Start: 10-30-2021 Telephone encounter Jeane Juan Ft [facility] Start: 10-29-2021 (Repeat ACH) Jeanealfredo Rogelt [facility] Start: 10-29-2021 End: 10-29-2021 ambulatory Jeane Fitt Other [place] Other Start: 10-29-2021 Telephone encounter Jeane Dykes [facility] Start: 10-23-2021 (Repeat ACH) Jeane Jania [facility] Start: 10-23-2021 End: 10-23-2021 ambulatory Jeane Fitt Other [place] Other Start: 10-22-2021 Patient encounter procedure Nadir Hoskins DO Work Phone: -[facility] 250 DO Work Phone: Start: 10-13-2021 Evaluation and management of inpatient DO Darian Smiley Work Phone: [facility]-[address] [place] [address] Critical Care Start: 09-09-2021 End: 09-09-2021 ambulatory Jeane Fitt Other [place] Other Start: 09-09-2021 Telephone encounter Jeane Higuera [facility] Start: 09-04-2021 ([facility] R A/c) [facility] Repeat A/C Jeane Dykes [facility] Start: 09-04-2021 End: 09-04-2021 ambulatory Jeane Fitt Other [place] Other Start: 09-04-2021 Telephone encounter Jeane Jania [facility] Start: 09-04-2021 Registered Recurring DO Sena Smiley Work Phone: [facility] [facility] Start: 08-04-2021 End: 08-04-2021 ambulatory Jeane Fitt Other [place] Other Start: 08-04-2021 [facility] Start: 07-28-2021 Patient encounter procedure Nadir Hoskins DO Work Phone: -[facility] Downey DO Work Phone: Start: 07-17-2021 ([facility] R A/c) [facility] Repeat A/C Jeanealfredo Dykes [facility] Start: 07-17-2021 End: 07-17-2021 ambulatory Jeane Juan Ft Other [place] Other Start: 06-30-2021 ([facility] R A/c) [facility] Repeat A/C Jeanealfredo Dykes [facility] Start: 06-30-2021 End: 06-30-2021 ambulatory Jeane Fitt Other [place] Other Start: 06-20-2021 Telephone encounter Jeane [facility] Start: 06-09-2021 ([facility] R A/c) [facility] Repeat A/C Jeane Dykes [facility] Start: 11-23-2020 End: 11-25-2020 Evaluation and management of inpatient Darian Itzkowitz -3 [facility] Start: 09-17-2020 Registered Recurring Darian Devaughn [facility] Start: 08-16-2020 End: 08-17-2020 Evaluation and management of inpatient Darian Itzkowitz -4 [facility] Critical [facility] Start: 08-05-2020 Registered Recurring Darian Devaughn [facility] Start: 07-26-2020 End: 07-26-2020 Emergency department patient visit Darian Itzkowitz -Emergency Room Start: 07-22-2020 End: 07-22-2020 Emergency department patient visit Darian Itzkowitz -Emergency Room Start: 07-19-2020 End: 07-19-2020 Emergency department patient visit Darian Itzkocttz -Emergency Room Start: 06-15-2020 End: 06-15-2020 Evaluation and management of inpatient Darian Itzkowitz -4 [facility] Progressive Start: 06-05-2020 End: 06-07-2020 Evaluation and management of inpatient Darian Itzkowitz -3 [facility] Start: 11-08-2019 ambulatory UNKNOWN PROVIDER Facili ty:[facility] Start: 10-12-2018 End: 10-12-2018 Patient encounter procedure MARGARETH MAYRA Facility:[facility] Start: 10-07-2018 Patient encounter procedure JAMEEL CELAYAAbdoulayeELVIN Facility:7 Start: 08-04-2018 End: 08-05-2018 Patient encounter procedure MARGARETH MAYRA Facility:[facility] Start: 08-02-2018 Patient encounter procedure SETH VASQUEZ Facility:[id number] Start: 06-27-2018 End: 07-01-2018 Evaluation and management of inpatient MARGARETH NUNEZ Facility:[facility] Start: 05-12-2018 End: 05-12-2018 Patient encounter procedure MARGARETH NUNEZ Facility:[facility] Start: 11-29-2003 Evaluation and management of inpatient Darian Itzkocttz -[facility] Patient encounter status No PCP None [facility] DO Work Phone: Procedures Date Procedure [...] W/ REFLEX TO MG FOR LOW K zAalea Cai [employer]ENGER [employer] Work Phone: Start: 10-07-2023 Prothrombin time Swapnil Brand MD Work Phone: Start: 10-06-2023 Potassium serum plasma/whole blood Feliz Brand MD Work Phone: Start: 10-06-2023 BASIC METABOLIC PANEL W/ REFLEX TO MG FOR LOW K Swapnil Brand MD Work Phone: Start: 10-06-2023 Prothrombin time Azalea Ede Trell [facility] Work Phone: Start: 10-06-2023 Intermittent pulse oximetry Azalea Ede Trell [facility] Work Phone: Start: 10-05-2023 Assay of troponin [...] Phone: Start: 09-29-2023 Electrophysiology study Jameel Valenzuela [facility] Work Phone: Start: 09-29-2023 Ecg routine ecg w/least 12 lds trcg only w/o i&r Yessi Miller [facility] Work Phone: Start: 09-29-2023 Basic metabolic panel calcium total Yessi M Kovalsky [employer] Work Phone: Start: 09-29-2023 EXTRA TUBES Margareth [...] Darian Baljit Start: 06-04-2020 Plain chest X-ray Darian Baljit [...] (3 - PPSV23 if available, else PCV20) [facility] Start: 2034 PNEUMOCOCCAL (3 - PPSV23 or PCV20) PNEUMOCOCCAL (3 - PPSV23 or PCV20) [facility] Start: [address] [facility] Start: 2034 Pneumococcal Vaccine: Pediatrics (0 to 5 Years) and At-Risk Patients (6 to 64 Years) (3 - PPSV23 or PCV20) Pneumococcal Vaccine: Pediatrics (0 to 5 Years) and At-Risk Patients (6 to 64 Years) (3 - PPSV23 or PCV20) [facility] Start: 08-17-2025 Lipid 1996 panel - Serum or Plasma Lipid Screening [facility] Start: 08-17-2025 LIPID SCREEN LIPID SCREEN [facility] Start: 09-29-2024 Creatinine measurement Creatinine Level [facility] Start: 09-29-2024 Potassium measurement Potassium Level [facility] Start: 08-30-2024 Cholesterol [Mass/volume] in Serum or Plasma Cholesterol [facility] Start: 04-13-2024 [facility] Start: 04-12-2024 [facility] Start: 04-11-2024 [facility] Start: 04-10-2024 [facility] Start: 04-09-2024 [facility] Start: 04-08-2024 [facility] Start: 04-07-2024 [facility] Start: 04-06-2024 [facility] Start: 04-05-2024 [facility] Start: 04-04-2024 [facility] Start: 04-03-2024 [facility] Start: 04-02-2024 [facility] Start: 04-01-2024 [facility] Start: 03-31-2024 [facility] Start: 03-30-2024 Bacteria identified in Urine by Culture [facility] Start: 03-30-2024 End: 03-30-2024 [facility] Start: 03-30-2024 Referral to Hand Funnel Coater [facility] Start: 03-30-2024 Referral to registered nurse obstetrics [facility] Start: 03-30-2024 Hospital admission [facility] Start: 03-29-2024 Plain chest X-ray XR chest 2V* [facility] Start: 03-29-2024 XR Chest 2 Views [facility] Start: 03-29-2024 End: 03-29-2024 Patient encounter procedure 03/29/2024 8:30 AM EDT Office Visit [facility] [address] [address] [place] [id number] Jameel Valenzuela E, P[employer]ENGER [employer] [address] [facility] [address] [place] [address] [facility] Start: 03-19-2024 DIABETES SCREEN DIABETES SCREEN [facility] Start: 03-19-2024 Diabetes Screening Diabetes Screening [facility] Start: 02-22-2024 Patient referral [facility] Work Phone: Start: 01-24-2024 Plain chest X-ray XR chest 1V portable [facility] Start: 01-24-2024 XR Chest Single view [facility] Start: 10-22-2023 End: 10-22-2023 Patient encounter procedure 10/22/2023 9:30 AM EST Office Visit [address] [id number] [place] [address] [place] [id number] new pat/ hosp f/u [facility] Comment on above: new pat/ hosp f/u Start: 10-18-2023 End: 10-18-2023 Patient encounter procedure 10/18/2023 2:50 PM EST Appointment [facility] [address] [place] [phone] INR- new Lovenox (CPA 10/06/24 Tracey) [facility] Comment on above: INR- new Lovenox (CPA 10/06/24 Tracey) Start: 10-13-2023 End: 10-06-2024 Basic metabolic 2000 panel - Serum or Plasma Basic Metabolic Panel Lab Routine Hypokalemia Expected: 10/13/2023, Expires: 10/06/2024 [facility] Comment on above: Expected: 10/13/2023, Expires: Start: 10-13-2023 End: 10-06-2024 CBC panel - Blood by Automated count CBC Lab Routine Dizziness Expected: 10/13/2023, Expires: 10/06/2024 [facility] Comment on above: Expected: 10/13/2023, Expires: Start: 10-13-2023 End: 10-13-2023 Patient encounter procedure 10/13/2023 11:00 AM EST Office Visit [facility] [address] [facility] [address], [address] [place] [address] Ajay Robles DO [address] [facility] [address] [place] [phone] Robles [facility] Comment on above: per Dr. Robles Start: 10-12-2023 End: 10-12-2023 Patient encounter procedure 10/12/2023 3:50 PM EST Appointment [facility] [address] [place] [address] INR- new Lovenox (CPA 10/06/24 Tracey) [facility] Comment on above: INR- new Lovenox (CPA 10/06/24 Tracey) Start: 10-08-2023 End: 10-08-2023 Patient encounter procedure 10/08/2023 10:30 AM EST Appointment [facility] [address] [place] [address] INR- new Lovenox (CPA 10/06/24 Tracey) [facility] Comment on above: INR- new Lovenox (CPA 10/06/24 Tracey) Start: 10-06-2023 End: 10-06-2023 Clinical Support 10/06/2023 8:30 AM EST Clinical Support [facility] [address] [place] [address] [facility] Start: 09-29-2023 End: 09-29-2023 Admission to same day surgery center 09/29/2023 2:00 PM EST - 09/29/2023 4:00 PM EST Surgery [facility] [address] [place] [facility] [place] [address] Margareth Nunez MD [address] [facility] [facility] [address] [place], [place] [id number] ICD BIV Generator Change Out [65150 (CPT )] [facility] Comment on above: ICD BIV Generator Change Out [84531 (CPT )] Start: 09-29-2023 Subsequent hospital visit by physician 09/29/2023 2:00 PM EST Hospital Encounter [facility] [address] [place] [facility] [place] [address] Margareth Nunez MD [address] [facility], [facility] [address] [place] [address] Biventricular implantable cardioverter-defibrilla tor (ICD) in situ; Elective replacement of implantable cardioverter-defibrilla tor (ICD) battery required [facility] Comment on above: Biventricular implantable cardioverter-d efibrillator (ICD) in situ; Elective replacement of implantable cardioverter-defibrillator (ICD) battery required Start: 09-09-2023 End: 12-09-2023 Basic metabolic 2000 panel - Serum or Plasma BASIC METABOLIC PNL Lab Routine Persistent atrial fibrillation (HCC) Expected: 09/09/2023 (Approximate), Expires: 12/09/2023 [facility] Work Phone: Comment on above: Expected: 09/09/2023 (Approximate), Expi res: 12/09/2023 Start: 09-09-2023 End: 04-11-2024 CBC panel - Blood by Automated count CBC Lab Routine Persistent atrial fibrillation (HCC) Expected: 09/09/2023 (Approximate), Expires: 12/09/2023 [facility] Work Phone: Comment on above: Expected: 09/09/2023 (Approximate), Expi res: 12/09/2023 Start: 09-09-2023 End: 12-09-2023 CONFIRM BLOOD TYPE CONFIRM BLOOD TYPE Blood Bank Routine Persistent atrial fibrillation (HCC) Expected: 09/09/2023 (Approximate), Expires: 12/09/2023 [facility] Work Phone: Comment on above: Expected: 09/09/2023 (Approximate), Expi res: 12/09/2023 Start: 09-09-2023 End: 12-09-2023 TYPE AND SCREEN,30 DAY TYPE AND SCREEN,30 DAY Blood Bank Routine Persistent atrial fibrillation (HCC) Expected: 09/09/2023 (Approximate), Expires: 12/09/2023 [facility] Work Phone: Comment on above: Expected: 09/09/2023 (Approximate), Expi res: 12/09/2023 Start: 08-30-2023 Annual Wellness Visit (Medicare Advantage) Annual Wellness Visit (Medicare Advantage) [facility] Start: 04-30-2023 Covid-19 Vaccine ( season) Covid-19 Vaccine ( season) [facility] Start: 04-30-2023 Influenza vaccination [facility] Start: 03-30-2023 Influenza vaccination Flu vaccine (#1) [facility] Start: 03-15-2023 FUV, Provider: Margareth Nunez, Status: Pen, Time: 1:40 PM FUV, Provider: Margareth Nunez, Status: Pen, Time: 1:40 PM -[facility] 250 DO Work Phone: Start: 11-14-2022 Echocardiography Echocardiogram [facility] Start: 10-27-2022 FUV, Provider: Margareth Nunez, Status: Pen, Time: 3:00 PM FUV, Provider: Margareth Nunez, Status: Pen, Time: 3:00 PM [facility] [address] DO Work Phone: Start: 05-30-2022 Influenza vaccination Influenza Vaccine (#1) [facility] Start: 05-25-2022 FUV, Provider: Inna Jesus, Status: Pen, Time: 1:30 PM FUV, Provider: Inna Jesus, Status: Pen, Time: 1:30 PM [facility] 250 DO Work Phone: Start: 05-20-2022 BP CONTROLLED (<130/80) BP CONTROLLED (<130/80) [facility] Start: 04-30-2022 Influenza vaccination [facility] Start: 04-24-2022 FUV, Provider: Margareth Nunez, Status: Pen, Time: 1:20 PM FUV, Provider: Margareth Nunez, Status: Pen, Time: 1:20 PM [facility] [address] [place] Work Phone: Start: 04-15-2022 FUV, Provider: Inna Jesus, Status: Pen, Time: 4:00 PM FUV, Provider: Inna Jesus, Status: Pen, Time: 4:00 PM -[facility] 250 DO Work Phone: Start: 03-25-2022 FUV, Provider: Inna Jesus, Status: Pen, Time: 8:00 AM FUV, Provider: Inna Jesus, Status: Pen, Time: 8:00 AM [facility] [address] DO Work Phone: Start: 03-12-2022 Diabetes mellitus screening Diabetes Screening [facility] Start: 02-23-2022 FUV, Provider: Inan Jesus, Status: Pen, Time: 8:00 AM FUV, Provider: Inna Jesus, Status: Pen, Time: 8:00 AM -[facility] 250 DO Work Phone: Start: 01-21-2022 [facility], Provider: Margareth Nunez, Status: Pen, Time: 9:00 AM [facility], Provider: Margareth Nunez, Status: Pen, Time: 9:00 AM -[facility] [address] DO Work Phone: Start: 01-20-2022 [facility], Provider: Soco Bhardwaj, Status: Pen, Time: 8:00 AM [facility], Provider: Soco Bhardwaj, Status: Pen, Time: 8:00 AM -[facility] [address] DO Work Phone: Start: 12-31-2021 EP ABLAT, Provider: [facility] RN SPEC 5,[id number], Status: Pen, Time: 11:00 AM EP ABLAT, Provider: [facility] RN SPEC 5,[id number], Status: Pen, Time: 11:00 AM -[facility] [address] DO Work Phone: Start: 12-31-2021 [facility], Provider: Soco Bhardwaj, Status: Pen, Time: 11:00 AM [facility], Provider: Soco Bhardwaj, Status: Pen, Time: 11:00 AM -[facility] [address] DO Work Phone: Start: 12-31-2021 [facility], Provider: Margareth Nunez, Status: Pen, Time: 8:00 AM [facility], Provider: Margareth Nunez, Status: Pen, Time: 8:00 AM -[facility] [address] DO Work Phone: Start: 12-31-2021 JOVITA, Provider: [facility] RN SPEC 1,[id number], Status: Pen, Time: 8:00 AM JOVITA, Provider: [facility] RN SPEC 1,[id number], Status: Pen, Time: 8:00 AM -[facility] [address] DO Work Phone: Start: 11-19-2021 FUV, Provider: Nadir Hoskins, Status: Pen, Time: 9:20 AM FUV, Provider: Nadir Hoskins, Status: Pen, Time: 9:20 AM -[facility] 250 DO Work Phone: Start: 10-29-2021 FUV, Provider: Inna Jesus, Status: Pen, Time: 2:30 PM FUV, Provider: Inna Jesus, Status: Jalen, Time: 2:30 PM [facility] DO Work Phone: Start: 10-13-2021 Bacteria identified in Blood by Culture Blood Culture [facility] Start: 10-13-2021 Bacteria identified in Urine by Culture Urine Culture [facility] Start: 08-17-2021 Hepatitis B surface antibody level LDL CHOLESTEROL [facility] Start: 05-11-2021 COVID-19 VACCINE (3 - Booster for Pfizer series) COVID-19 VACCINE (3 - Booster for Pfizer series) [facility] Start: 02-03-2021 COVID-19 VACCINE (3 - Booster for Pfizer series) COVID-19 VACCINE (3 - Booster for Pfizer series) [facility] Start: 02-03-2021 COVID-19 VACCINE (3 - Pfizer series) COVID-19 VACCINE (3 - Pfizer series) [facility] Start: 2019 Measurement of occult blood in single stool specimen FIT [facility] Start: 2019 Screening for malignant neoplasm of breast Breast cancer screen [facility] Start: 2019 Screening for malignant neoplasm of colon CRC Screening [facility] Start: 2019 Shingles (RZV) Vaccine (1 of 2) Shingles (RZV) Vaccine (1 of 2) [facility] Start: 2019 Shingles vaccine (1 of 2) Shingles vaccine (1 of 2) [facility] Start: 2019 SHINGRIX VACCINE (1 of 2) SHINGRIX VACCINE (1 of 2) [facility] Start: 2019 Zoster Vaccines (1 of 2) Zoster Vaccines (1 of 2) [facility] Start: 2014 COLOGUARD (FIT-DNA) COLOGUARD (FIT-DNA) [facility] Start: 2014 Colonoscopy COLONOSCOPY [facility] Start: 2014 COLORECTAL CANCER SCREENING COLORECTAL CANCER SCREENING [facility] Start: [address] COLONOGRAPHY [facility] Start: 2014 FECAL OCCULT BLOOD FECAL OCCULT BLOOD [facility] Start: 2014 Screening for malignant neoplasm of colon [facility] Start: 2014 SIGMOIDOSCOPY SIGMOIDOSCOPY [facility] Start: 02-06-2013 DTaP/Tdap/Td vaccine (1 - Tdap) DTaP/Tdap/Td vaccine (1 - Tdap) [facility] Start: 02-06-2013 DTaP/Tdap/Td Vaccines (1 - Tdap) DTaP/Tdap/Td Vaccines (1 - Tdap) [facility] Start: 02-06-2013 Urine microalbumin profile [facility] Start: 2009 Mammography [facility] Start: 2009 Screening for malignant neoplasm of breast [facility] Start: 1999 HPV TESTING HPV TESTING [facility] Start: 1999 Screening for malignant neoplasm of cervix [facility] Start: 1990 PAP TESTING PAP TESTING [facility] Start: 1990 Screening for malignant neoplasm of cervix [facility] Start: 1988 DTaP/Tdap/Td vaccine (1 - Tdap) DTaP/Tdap/Td vaccine (1 - Tdap) [facility] Start: 1987 ANNUAL PCP TEAM CHRONIC DISEASE VISIT ANNUAL PCP TEAM CHRONIC DISEASE VISIT [facility] Start: 1987 BP CONTROLLED (<130/80) BP CONTROLLED (<130/80) [facility] Start: 1987 HEPATITIS C SCREENING HEPATITIS C SCREENING [facility] Start: [address] [facility] Start: 1987 HIV SCREENING HIV SCREENING [facility] Start: 1987 SPIROMETRY SPIROMETRY [facility] Start: 1987 Tetanus + diphtheria + acellular pertussis vaccine (product) Tdap Booster [facility] Start: [address] [facility] Start: 1981 Depression Screen Depression Screen [facility] Start: 1979 Lipid panel Lipids [facility] Start: 1970 MMR Vaccines (1 of 1 - Standard series) MMR Vaccines (1 of 1 - Standard series) [facility] Start: 01-09-1970 COVID-19 Vaccine (#1) COVID-19 Vaccine (#1) [facility] Start: 1969 Creatinine measurement Creatinine Level [facility] Start: 1969 Ejection Fraction Ejection Fraction [facility] Start: 1969 HEPATITIS B (1 of 3 - 3-dose series) HEPATITIS B (1 of 3 - 3-dose series) [facility] Start: 1969 Hepatitis B Vaccine (1 of 3 - 3-dose series) Hepatitis B Vaccine (1 of 3 - 3-dose series) [facility] Start: 1969 Hepatitis B Vaccines (1 of 3 - 3-dose series) Hepatitis B Vaccines (1 of 3 - 3-dose series) [facility] Start: 1969 HIV screening HIV Screening [facility] Start: 1969 Lipid panel Lipid Panel [facility] Start: 1969 Medicare Annual Wellness Visit Medicare Annual Wellness Visit (AWV) [facility] Start: 1969 Potassium measurement Potassium Level [facility] Start: 1969 Screening for malignant neoplasm of colon [facility] Start: 1969 Thyroid stimulating hormone measurement TSH Level [facility] Anion gap measurement [facility] aPTT in Platelet poo r plasma by Coagulation assay [facility] Bacteria identified in Blood by Culture [facility] Bacteria identified in Urine by Culture [facility] End: 10-08-2023 Basic Metabolic Panel w/ Reflex to MG Basic Metabolic Panel w/ Reflex to MG Lab Routine Daily for 3 Days starting 10/06/2023 until 10/08/2023, 1 completed [facility] [employer] Comment on above: Daily for 3 Days starting 10/06/2023 unt il 10/08/2023, [address] [facility] Basophil percent differential count [facility] Basophils [#/volume] in Blood by Automated count [facility] Basophils/100 leukoc ytes in Blood by Automated count [facility] Calcium [Mass/volume ] in Serum or Plasma [facility] Calculated LDL cholesterol level [facility] Carbon dioxide, tota l [Moles/volume] in Serum or Plasma [facility] Cardiac Device Check - In Clinic Cardiac Device Check - In Clinic Implantable Cardiac Device Routine ICD (implantable cardioverter-defibrilla tor) battery depletion 09/02/2023 1:53 PM EST [facility] Service Area Work Phone: End: 10-08-2023 CBC W Auto Differential panel - Blood CBC with auto differential Lab Routine Daily for 3 Days starting 10/06/2023 until 10/08/2023, 2 completed [employer] Comment on above: Daily for 3 Days starting 10/06/2023 unt il 10/08/2023, 2 completed Chloride [Moles/volu me] in Serum or Plasma [facility] Cholesterol.total/Ch olest christine in HDL [Mass Ratio] in Serum or Plasma [facility] End: 10-06-2023 Clostridium Difficile Toxin/Antigen Clostridium Difficile Toxin/Antigen Microbiology Routine 36 Hours Expiring for 36 Hours starting 10/06/2023 until 10/06/2023 [employer] Comment on above: 36 Hours Expiring for 36 Hours starting 10/06/2023 until 10/06/2023 Creatinine and Glome rular filtration rate.predicted panel - Serum, Plasma or Blood [facility] ECG 12 lead STAT ECG 12 lead STA T ECG STAT 09/29/2023 7:03 AM [facility] Service Area Work Phone: Eosinophil percent differential count [facility] Eosinophils [#/volum e] in Blood [facility] Eosinophils/100 leukocytes in Blood by Automated count [facility] Erythrocyte distribu tion width [Ratio] by Automated count [facility] Erythrocyte mean corpuscular volume determination [facility] Erythrocytes [#/volu me] in Blood [facility] Erythrocytes [#/volu me] in Blood [facility] Glucose [Mass/volume ] in Serum or Plasma [facility] Hematocrit [Volume Fraction] of Blood [facility] Hematocrit [Volume Fraction] of Blood [facility] Hemoglobin [Mass/vol ume] in Blood [facility] Hemoglobin [Mass/vol ume] in Blood [facility] Hemoglobin distribut ion, width determination [facility] ICD BIV GENERATOR CH GERTRUDIS OUT ICD BIV GENERATOR CHANGE OUT Biventricular implantable cardioverter-defibrilla tor (ICD) in situ Elective replacement of implantable cardioverter-defibrilla tor (ICD) battery required [facility] Work Phone: INR in Platelet poor plasma by Coagulation assay [facility] Leukocytes [#/volume ] corrected for nucleated erythrocytes in Blood by Automated coun [facility] Leukocytes [#/volume ] in Blood [facility] Leukocytes [#/volume ] in Blood [facility] Lymphocyte count [facility] Lymphocyte percent differential count [facility] Lymphocytes [#/volum e] in Blood by Automated count [facility] Lymphocytes/100 leukocytes in Blood by Automated count [facility] Magnesium measurement [facility] MCH [Entitic mass] b y Automated count [facility] MCHC [Mass/volume] b y Automated count [facility] MCV [Entitic volume] by Automated count [facility] Mean corpuscular hemoglobin concentration determination [facility] Mean corpuscular hemoglobin determination [facility] Measurement of renal function [facility] Monocyte count [facility] Monocyte percent differential count [facility] Monocytes [#/volume] in Blood by Automated count [facility] Monocytes/100 leukoc ytes in Blood by Automated count [facility] Neutrophil count [facility] Neutrophil percent differential count [facility] Neutrophils [#/volum e] in Blood by Automated count [facility] Neutrophils/100 leukocytes in Blood by Automated count [facility] Nucleated erythrocyt es [Presence] in Blood by Automated count [facility] Oxygen therapy [Mini [facility] Data Set] Initiate Oxygen Therapy Protocol Respiratory Care Routine Daily until discontinued starting 10/06/2023 [facility] Comment on above: Daily until discontinued starting 2023 Patient Education [facility] Patient referral [facility] Platelet mean volume [Entitic volume] in Blood by Automated count [facility] Platelet mean volume determination [facility] Platelets [#/volume] in Blood [facility] Platelets [#/volume] in Blood [facility] Potassium [Moles/vol ume] in Serum or Plasma [facility] End: 10-20-2023 Protime-INR Protime-INR Lab Routine Daily for 2 Weeks starting 10/07/2023 until 10/20/2023, 1 completed [facility] Comment on above: Daily for 2 Weeks starting 10/07/2023 un til 10/20/2023, 1 completed End: 09-07-2024 Radiologic exam chest 2 views XR CHEST 2V FRONTAL/LAT Radiology Routine Persistent atrial fibrillation (HCC) 1 Occurrences starting 08/09/2023 until 09/07/2024 [facility] Work Phone: Comment on above: 1 Occurrences starting 08/09/2023 until 09/07/2024 Sodium [Moles/volume ] in Serum or Plasma [facility] End: 10-06-2023 SPECIMEN REJECTION [facility] Comment on above: Once for 1 Occurrences starting 10/06/19 24 until 10/06/2023 Urea nitrogen [Mass/volume] in Serum or Plasma [facility] VLDL cholesterol measurement [facility] XR Humerus - right Views [facility] XR Shoulder - right Views [facility] Immunizations Immunization Date Immunization Notes Care Provider Sherif bailey 12-09-2020 Pfizer-BioNTech COVID-19 Vacc 30 MCG/0.3ML Intramuscular Suspension Nadir Hoskins DO Work Phone: [facility] 11-18-2020 COVID-19 vaccine, ag e 12+ yr (PFIZER-BIONTECH - PURPLE TOP) David Osei MD Work Phone: [facility] 06-09-2020 pneumococcal polysaccharide vaccine, 23 valent David Osei MD Work Phone: [facility] 06-07-2020 influenza, seasonal, injectable David Osei MD Work Phone: [facility] 06-07-2020 influenza virus vaccine, unspecified formulation David Osei MD Work Phone: [facility] 06-06-2020 influenza, injectabl e, quadrivalent, preservative free Darian Smiley [facility] 06-06-2020 influenza virus vaccine, unspecified formulation Anju Cuevas DMD Work Phone: [facility] 08-31-2019 Influenza, injectabl e, Madin Denise Canine Kidney, preservative free, quadrivalent Darian Smiley [facility] 08-30-2019 influenza virus vaccine, unspecified formulation Nadir Hoskins DO Work Phone: [facility] 250 DO Work Phone: 06-29-2018 influenza, injectabl e, quadrivalent, preservative free David Osei MD Work Phone: [facility] 06-27-2018 influenza virus vaccine, unspecified formulation Nadir Hoskins DO Work Phone: [place] [address] DO Work Phone: 06-17-2018 influenza, injectabl e, quadrivalent, preservative free Jeane Dykes Other [facility] 05-10-2017 influenza, seasonal, injectable, preservative free David Osei MD Work Phone: [facility] 05-03-2017 influenza, injectabl e, quadrivalent, preservative free David Osei MD Work Phone: [facility] 04-30-2017 influenza virus vaccine, unspecified formulation Nadir Hoskins DO Work Phone: [place] [address] DO Work Phone: 05-08-2016 pneumococcal conjuga te vaccine, 13 valent David Osei MD Work Phone: [facility] 04-30-2016 influenza virus vaccine, unspecified formulation Nadir Hoskins DO Work Phone: [facility] 250 DO Work Phone: 04-30-2016 pneumococcal conjuga te vaccine, 7 valent Ndair Hoskins DO Work Phone: [place] [address] DO Work Phone: 04-24-2016 influenza, seasonal, injectable, preservative free David Osei MD Work Phone: [facility] 05-30-2015 influenza virus vaccine, unspecified formulation Nadir Hoskins DO Work Phone: -[facility] 250 DO Work Phone: 09-18-2013 influenza virus vaccine, unspecified formulation Nadir Hoskins DO Work Phone: -[facility] 250 DO Work Phone: 02-05-2013 TD(adult) unspecifie d formulation David Osei MD Work Phone: [facility] 02-05-2013 Td, unspecified formulation Marcelo Champagne [facility] Work Phone: [facility] 08-30-2011 pneumococcal polysaccharide vaccine, 23 valent Nadir Hoskins DO Work Phone: -[facility] DO Work Phone: influenza virus vaccine, unspecified formulation Nadir Hoskins DO Work Phone: -[facility] 250 DO Work Phone: Comment on above: 2008 2009 2010 2011 2012 pneumococcal polysaccharide vaccine, 23 valent Nadir Hoskins DO Work Phone: -[facility] 250 DO Work Phone: Comment on above: 2008 Payers Date Payer Category Payer Private Health Insurance [facility] DUAL COMPLETE [facility] DUAL COMPLETE [id number] 2023-Present [address] [address] [place] [address] [id number] 2023 Self-pay [id number] 2020 Medicare UHC MEDICARE UHC DUAL COMPLETE HMO SNP [id number] 2020-Present [phone] [address] [place] [address] Medicare [id number] 2020 Medicare [id number] [id number]. [id number] 2020 Medicaid MEDICAID [facility] MEDICAID [id number] 2020-Present [phone] [address] [place] [address] Medicaid [id number] 2017 Private Health Insurance [id number] 2017 Unknown [id number] 2003 Medicaid [id number]. [id number]. [id number] 1969 Unknown [id number] 2.16.840.1.521273.3.579.2. 355 1969 Unknown [id number] 2.16.840.1.193878.3.579.2. 355 1969 Unknown [id number] 2.16.840.1.326002.3.579.2. 355 1969 Unknown [id number] 2.16.840.1.865300.3.579.2. 355 1969 Unknown [id number] 2.16.840.1.254801.3.579.2. 355 1969 Unknown [id number] 2.16.840.1.217761.3.579.2. 355 1969 Unknown [id number] 2.16.840.1.661636.3.579.2. 732 1969 Unknown [id number] 2.16.840.1.130524.3.579.2. 593 1969 Unknown [id number] 2.16.840.1.210170.3.579.2. 593 1969 Unknown [id number] 2.16.840.1.631258.3.579.2. 593 1969 Unknown [id number] 2.16.840.1.550446.3.579.2. 593 1969 Unknown [id number] 2.16.840.1.363524.3.579.2. 593 1969 Unknown [id number] 2.16.840.1.214520.3.579.2. 593 1969 Unknown [id number] 2.16.840.1.287526.3.579.2. 593 1969 Unknown [id number] 2.16.840.1.944226.3.579.2. 593 1969 Unknown [id number] 2.16.840.1.320240.3.579.2. 593 1969 Unknown [id number] 2.16.840.1.076253.3.579.2. 593 1969 Unknown [id number] 2.16.840.1.826543.3.579.2. 593 1969 Unknown [id number] 2.16.840.1.770610.3.579.2. 593 1969 Unknown [id number] 2.16.840.1.357494.3.579.2. 593 1969 Unknown [id number] 2.16.840.1.358583.3.579.2. 593 1969 Unknown [id number] 2.16.840.1.963382.3.579.2. 593 1969 Unknown [id number] 2.16.840.1.213662.3.579.2. 593 1969 Unknown [id number] 2.16.840.1.283971.3.579.2. 593 1969 Unknown [id number] 2.16.840.1.246199.3.579.2. 1246 1969 Unknown [id number] 2.16.840.1.012331.3.579.2. 1246 1969 Unknown [id number] 2.16.840.1.613003.3.579.2. 1246 1969 Unknown [id number] 2.16.840.1.278853.3.579.2. 356 1969 Unknown [id number] 2.16.840.1.315678.3.579.2. 727 1969 Unknown [id number] 2.16.840.1.476268.3.579.2. 727 1969 Unknown [id number] 2.16.840.1.766693.3.579.2. 727 1969 Unknown [id number] 2.16.840.1.981204.3.579.2. 727 1969 Unknown [id number] 2.16.840.1.400246.3.579.2. 176 1969 Unknown [id number] 2.16.840.1.225889.3.579.2. 176 1969 Unknown [id number] 2.16.840.1.868028.3.579.2. 176 1969 Unknown [id number] 2.16.840.1.919844.3.579.2. 175 1969 Unknown [id number] 2.16.840.1.250715.3.579.2. 1244 1959 Medicaid [id number] Medicare [id number] Medicare [id number] Medicare Medicare [id number] Private Health Insurance [employer] [facility] PFFS 1 [id number] Private Health Insurance [facility] CORNELIO [id number] Unknown [id number] Unknown Unknown [id number] 2.16.840.1.417405.3.579.2. 531 Unknown [id number] 2.16.840.1.352752.3.579.2. 531 Unknown [id number] 2.16.840.1.491303.3.579.2. 531 Social History Date Type Detail Facility Start: 08-16-2020 End: 03-30-2024 Tobacco smoking status NHIS Ex-smoker (finding) [facility] Start: 1970 Sex Assigned At Female F [facility] Start: 05-20-2021 End: 10-06-2023 No illicit drug use No illicit drug use [facility] Work Phone: Comment on above: QUIT 02/2018; QUIT 02/2018 had res tarted then requit 08/2021; Start: 05-20-2021 End: 09-29-2023 Tobacco smoking status [facility] Smokes tobacco daily [facility] Start: 10-07-2006 End: 08-30-2021 History of tobacco use Cigarette Smoker [facility] Start: 05-20-2021 End: 10-06-2023 Tobacco use and exposure Smokeless tobacco non-user [facility] Start: 05-20-2021 End: 09-29-2023 Alcohol intake Ex-drinker (finding) [facility] Start: 06-17-2020 History SDOH Financial 5 [facility] Start: 06-17-2020 History SDOH Food Worry 1 [facility] Start: 06-17-2020 History SDOH Transport Med 2 [facility] Start: 02-24-2012 Tobacco Comment 5 cigarettes a day [facility] Start: 1970 Sex Assigned At Not on file [facility] Start: 12-28-2021 End: 01-07-2022 Exposure to SARS-CoV-2 (event) Unable to assess [facility] Start: 05-20-2021 End: 10-06-2023 Sex Assigned At [facility] Work Phone: Start: 10-13-2021 End: 11-11-2023 Tobacco smoking status NHIS Smoker (finding) [facility] Start: 10-13-2021 Alcohol intake Current non-dr logging engineer of alcohol (finding) [facility] How hard is it for you to pay for the very basics like food, housing, medical care, and heating Not hard at all [facility] Work Phone: (I/We) worried whether (my/our) food would run out before (I/we) got money to buy more. Never true [facility] Work Phone: Start: 09-02-2023 End: 10-08-2023 Alcohol intake Current drinker of alcohol (finding) [facility] Work Phone: Start: 08-31-2023 Alcohol Comment rare [facility] Work Phone: Start: 08-23-2023 End: 09-29-2023 Exposure to SARS-CoV-2 (event) Not sure [facility] Has the electric, gas, oil, or water company threatened to shut off services in your home in past 12Mo No [employer] Start: 02-05-2013 Alcohol Comment special occasi ons couple drinks [employer] NEGATED: Highlighted row [facility] Medical Equipment Procedure Code Equipment Code Equipment Origin al Text Equipment Identifier Dates Ripon Ptfe 1.2 Cm X 10 Cm - [id number] Start: 07-13-2012 Comment on above: Description: pledgets for suture line re inforcement Valve 27mm Therm afix Pericardi - [id number] Start: 07-13-2012 Comment on above: Description: Mitral valve replacement wi th 27 mm Cornell Lang tissue valve Valve Orquidea 3 Commander Lang 26mm Aortic Transcatheter Ultra Low - [id number] Start: 03-17-2021 Defibrillator, Candy Maker-D, Claria Mri, Surescpeggy, Df1 - [id number] - [id number] Start: 09-29-2023 Goals Date Patient Goal Desired Activity /State Functional Status Date Assessment Result Facility 03-30-2024 Functional status Patient at Baseline [facility] Work Phone: 11-25-2020 Functional status Patient at Baseline [facility] 11-23-2020 Functional status Patient at Baseline [facility] 08-17-2020 Functional status Patient at Baseline [facility] 08-17-2020 Functional status Disability Sta tus Patient at Baseline [facility] 06-15-2020 Functional status Patient at Baseline [facility] 06-05-2020 Functional status Patient at Baseline [facility] Mental Status Date Assessment Result Facility 03-30-2024 Cognitive function Cognitive Sta tus Patient at Baseline [facility] Work Phone: 11-25-2020 Cognitive function Cognitive Sta tus Patient at Baseline [facility] 11-23-2020 Cognitive function Cognitive Sta tus Patient at Baseline [facility] 08-17-2020 Cognitive function Cognitive Sta tus Patient at Baseline [facility] 06-15-2020 Cognitive function Cognitive Sta tus Patient at Baseline [facility] 06-05-2020 Cognitive function Cognitive Sta tus Patient at Baseline [facility] Clinical Notes 06-15-2020 to 03-30-2024 Note Date & Type Note Facility 03-30-2024 Progress note Note Date/Time March 30, 2024 1:38pm [facility] [address] [place] [address] Progress Note Signed Patient: Essence Vincent MR#: [id number] : 1970 Acct:[id number] Age/Sex: 53 / F Adm Date: 4 Loc: Room: [address] [place] [address] Type: ADM INOo Attending Dr: Patrica Mcmahon [...] <Electronically signed by Patrica Mcmahon MD> 03/30/24 1661 [facility] Work Phone: 1(252) 274-986508-01-2024 History and physical note Author Kendrick Jorgensen [facility] March 30, 2024 3:54am Note Date/Time March 30, 2024 2:3 6am [facility] [address] [place] [address] Hospitalist H&P Signed Patient: Essence Vincent MR#: [id number] : 1970 Acct:[id number] Age/Sex: 53 / F Adm Date: 4 Loc: Room: [address] [place] [address] Type: ADM INOo Attending Dr: Kendrick Jorgensen MD Copies to: MD Amanda Quiroga APRN, PEDRO Russell APRN~ HPI DATE OF EXAMINATION: 03/30/24 CHIEF COMPLAINT: palpitations HISTORY OF PRESENT ILLNESS: Ms. Vincent is a 53-year-old female with a PMH of AMI, VT, SVT, AICD placement, mitral valve replacement, A-fib, hypothyroidism, DVT, atrial thrombus, warfarin therapy, CHF presented to the emergency room [facility] for complaints of palpitations. Patient states [...] she has been seeing psychiatry services in [place] for anxiety. Reports she lost her parents [...] behind her left eye, sees neuro at [facility] in [place], Dr. Robles. States they are just watching [...] positive for barbiturates and marijuana-she is on skjknebgmt-htawwcgncpsym-dsnvoixi as needed for headaches. She was medicated with lorazepam, potassium, Nitropaste 1 inch. She will be admitted as observation to the [facility] telemetry floor. Review of Systems Review of Systems Review of systems: A 10 point review of systems was obtained, negative unless noted in the HPI or below. [facility] Medical History (Updated 03/30/24 @ 03:17 by Kristyn Russell APRN) Paroxysmal A-fib Deep vein thrombosis (DVT) Presence of combination internal cardiac defibrillator (ICD) and pacemaker Ventricular tachycardia (08/04/18) Hypotension CHF (congestive heart failure) Atrial thrombus Large clot found in heart at [facility]. COPD (chronic obstructive pulmonary disease) Myocardial infarction [...] breath or wheezing 02/17/24 [History Confirmed 03/30/24] msyyfslihq-iknnlvuoxbhxm-uplphwrr 50 mg-300 mg-40 mg capsule (Fioricet) 1 [...] 00:27 Lymph % (Auto) N/A 03/30/24 00:27 [place] % (Auto) N/A 03/30/24 00:27 Eos % (Auto) N/A 03/30/24 00:27 Baso % (Auto) N/A 03/30/24 00:27 Nucleat RBC Rel Count N/A 03/30/24 00:27 Neut # (Auto) N/A 03/30/24 00:27 Lymph # (Auto) N/A 03/30/24 00:27 [place] # (Auto) N/A 03/30/24 00:27 Eos # [...] pH 6.5 (5.0-9.0) 03/30/24 02:00 Ur Specific [place] 1.016 (1.001-1.030) 03/30/24 02:00 Urine Protein Negative [...] a.m. ? Follows with Dr. Mazariegos in [place] ? Patient reports she takes torsemide daily [...] signed by Kendrick Jorgensen MD> 03/30/[address] [facility] Work Phone: 1(131) 758-372805-09-2024 NoteDate of Service: 01/04/2024 Procedure: Diagnostic cerebral [...] ([place]) cerebral angiogram --Right common femoral artery (ABSTRACT MAKER) angiogram Neurointerventionalist: Pedro Fan MD [place]: Garry New MD Contrast: 98 cc of [...] with a micropuncture technique, and a 5 Zambian intravascular sheath wasplaced within the right common femoral artery, establishing arterial access using modified Seldinger technique. The ultrasound guidance image was not captured and archived in the patient's record. 2000u of heparin IV was administered. A 5 [place]ian multipurpose catheter was then advanced over a [...] The left internal marquez (more content not included)...[facility]02-13-2024 History of Present illness Narrative* Heydi Jiang, [facility] - 10/12/2023 3:50 PM EST Patient seen [...] Spent (min): 20 Heydi Jiang, PharmD PGY1 Casino Slot Supervisor [facility] documented [facility] History of Present illness Narrative* Marcelo Champagne [...] Spent (min): 20 documented in this encounterBON [facility] History of Present illness Narrative* Savannah Chang - 10/07/2023 11:37 AM EST Pt does not want Butalbital/APAP/Caffeine 50/325/40 tabs on file at [facility].Pt in need of [...] cell to discuss payment * Marcelo Raman [facility] - 10/07/2023 8:44 AM EST Pharmacy Note [...] - 10/06/2023 2:29 PM EST Pharmacy from [facility] came to floor to give patient a card for an appt on 10/08/23 at 10:30am. Card was given to patient. * Yvette Alatorre RN - 10/06/2023 2:28 PM EST Spoke with Savannah from OP pharmacy they are working on getting Lovenox for discharge as they are lowin stock. She will get back to sheet writer. * Yvette Alatorre RN - 10/06/2023 1:18 PM EST Global Marketing Manager asked patient why she has been off [...] Patient gave herself her Lovenox today with sheet writer in room to help educate. Patient [...] 1.1 none 7.5 mg Notes: Per [facility] office patient CAREER BASED INTERVENTION COORDINATOR dosing was 7.5 mg ONE day per week. All other days are 5 mg. Patient noncompliant with office and has not been seen for 1 year. Office Number [phone] Per Gauri Rey Daily PT/INR while inpatient. Nadir Madrigal PharmD. [facility] 10/06/2023 9:53 AM * Eddie Farias [facility] - 10/06/2023 4:24 AM EST Pharmacy Note [...] to follow. * Azalea Cai APRN - REMNANT SORTER - 10/05/2023 11:20 PM EST Essence Vincent [...] 10/05/2023 11:20 PM [facility] Note.ICD System pulse generator replacement Procedures: PATTERNMAKER METAL BENCH-D generator replacement (69959) Pocket revision with Tyrx pouch, 92100 - 59 (distinct procedure), Defibrillator generator threshold testing 00581, Pre and post ICD analysis and reprogramming 35901 x 2 Patient history: Please refer to [...] of infection. The patient should call the desolderer immediately if symptoms recur, or for any problems. The patient and family (friend with HIPAA consent) have been instructed accordingly. Follow up in Clinic in 1 week for wound check. See complete procedural log and parameters. [id number] Hospital Discharge instructions* Discharge Instructions* Yessi Don APRN-REMNANT SORTER - 09/29/2023 9:39 AM EST Images from [...] have been instructed by the device company service support representative regarding remote home monitoring. There are [...] your after visit summary [facility] 1(185) 253-383301-31-2024 Note* Pre-Sedation Documentation - Margareth Nunez MD - 09/29/2023 7:54 AM EST Sedation Plan ASA 2 Mallampati class: II. Risks, benefits, and alternatives discussed with patient. [facility] Work Phone: 1(188) 346-195701-31-2024 Miscellaneous Notes* Pre-Sedation Documentation - Margareth Nunez MD - 09/29/2023 7:54 AM EST Sedation Plan ASA 2 Mallampati class: II. Risks, benefits, and alternatives discussed with patient. documented in this [facility] Work Phone: 1(984) 126-138001-31-2024 Attending History and physical note* Margareth Nunez MD - 09/29/2023 7:52 AM EST H&P reviewed. The patient was examined and there are no changes to the H&P. She is here for generator change. She has chronic lower extremity edema and exertional dyspnea. Shared decision making performed. [place] decision tool. All questions answered. Econsent obtained. Source Note - Jameel Valenzuela APRN-REMNANT SORTER - 09/02/2023 2:30 PM EST CARDIOLOGY OFFICE [...] ventricular tachycardia status post ablations through the [facility] with the most recent procedure being [...] recently the device was upgraded to a PATTERNMAKER METAL BENCH-D device on September 23, 2016 for the [...] 80 mg tablet 1 tablet, oral, Nightly oaugvkgiyg-twyrkhqukfnya-ymfq (Fioricet) 50-300-40 mg capsule 1 capsule, oral, [...] 80 bpm. Prolonged AV conduction with a OH interval of 300 ms. QRS durations 136 [...] per transesophageal echo dated January 21, 2022, [place] Heart Association class III, stage C heart [...] post 3 VT ablation procedures at the [facility] and maintained on a combination of amiodarone, metoprolol, and magnesium oxide for ventricular arrhythmia suppression. (Medtronic Viva XT PATTERNMAKER METAL BENCH-D). 4. Dyslipidemia on statin. 5. Paroxysmal atrial [...] states that she does follow with a independent living specialist for her COPD but has not had [...] software was utilized to prepare this document. [facility] Work Phone: 1(209) 152-595601-31-2024 History and physical note* Margareth Nunez MD - 09/29/2023 7:52 AM EST H&P reviewed. The patient was examined and there are no changes to the H&P. She is here for generator change. She has chronic lower extremity edema and exertional dyspnea. Shared decision making performed. [place] decision tool. All questions answered. Econsent obtained. Source Note - Jameel Garcia Bianca, PASSENGER CAR CONDUCTOR-REMNANT SORTER - 09/02/2023 2:30 PM EST CARDIOLOGY OFFICE [...] ventricular tachycardia status post ablations through the [facility] with the most recent procedure being [...] recently the device was upgraded to a PATTERNMAKER METAL BENCH-D device on September 23, 2016 for the [...] 80 mg tablet 1 tablet, oral, Nightly ucqqvbkeam-ebcgjozegrpeo-mmpr (Fioricet) 50-300-40 mg capsule 1 capsule, oral, [...] 80 bpm. Prolonged AV conduction with a OH interval of 300 ms. QRS durations 136 [...] per transesophageal echo dated January 21, 2022, [place] Heart Association class III, stage C heart [...] post 3 VT ablation procedures at the [facility] and maintained on a combination of amiodarone, metoprolol, and magnesium oxide for ventricular arrhythmia suppression. (Medtronic Viva XT PATTERNMAKER METAL BENCH-D). 4. Dyslipidemia on statin. 5. Paroxysmal atrial [...] states that she does follow with a independent living specialist for her COPD but has not had [...] to prepare this document. documented in this [facility] Work Phone: [phone]) 794-153501-29-2024 Evaluation note* Encounter Date Diagnosis Assessment Notes Treatment Notes Treatment Clinical Notes Aug, Generalized anxiety disorder (ICD-10 - F41.1) [facility] Other 01-24-2024 Evaluation note* Encounter Date Diagnosis Assessment Notes Treatment Notes Treatment Clinical Notes Aug, Migraine without status migrainosus, not intractable, unspecified migraine type (ICD-10 - G43.909) last filled 07/27/2023 [facility] Other 01-24-2024 Evaluation note* Encounter Date Diagnosis Assessment Notes Treatment Notes Treatment Clinical Notes Aug, Migraine without status migrainosus, not intractable, unspecified migraine type (ICD-10 - G43.909) [facility] Other 01-02-2024 Evaluation note* Encounter Date Diagnosis Assessment Notes Treatment Notes Treatment Clinical Notes Aug, Generalized anxiety disorder (ICD-10 - F41.1) [facility] [employer] Other 11-29-2023 Miscellaneous Notes* Telephone Encounter - [...] Epic note, left voicemail. [facility] NotePROCEDURE: XR HUMERUS RT MIN 2 [...] Electronically authenticated by: JC BRAVO Date: 2023-01-27 11:03[facility] NotePROCEDURE: XR HUMERUS RT MIN 2 [...] Electronically authenticated by: JC BRAVO Date: 2023-01-27 11:03[facility]22 NotePre-procedure Verification and Time Out: Pre-Procedure [...] Findings: grossly normal anatomy Procedure performed by: wy Web Machine Tender(s): none Estimated Blood Loss (mL): none Specimen: [...] of infection. The patient should call the desolderer immediately if symptoms recur, or for any [...] right interatrial septum sites were mapped with vwrjr-je-nisww electroanatomical activation mapping and entrainment mapping from both the right atrial catheter and the ablation catheter. An Remitly mapping system was used to create a 3D image of the right atrium and cavotricuspid isthmus. Mapping was performed during sinus rhythm and atrial pacing. 4. Catheter RF ablation. Applications were delivered via a generator to (more content not included)...[facility]05-25-2022 NoteHistory of Present Illness: /Lactating: Are You [...] - Surgical Update < 30 days 21-Jan-2022 12:[address] [place], [place] 1586805-25-2022 NoteElectrophysiology Procedure TestingPlease click on the link to view the study images (Normal)- [facility] [address] [place] Work Phone: 1(180) 107-182205-25-2022 NoteElectrophysiology Procedure Testing Please click on the link to view the study images (Normal)-[facility] [place] [address] [place] Work Phone: [phone] 618-561405-25-2022 NoteHistory & Physical Reviewed: /Lactating: Are You [...] From Patient Profile - Preop v3 21-Jan-2022 10:28[facility]05-25-2022 NoteHistory of Present Illness: Admission Reason: Atrial [...] JOVITA/EPS/possible ablation. She is here today at [facility] for these procedures. Patient denies recent complaints [...] Flutter Plan for Impressi (more content not included)...[facility] 12-23-2021 Evaluation note* Encounter Date Diagnosis Assessment [...] CELESTINA Pugh. Seen by Memo Fuchs PharmD [facility] Other 04-20-2022 Evaluation note* Encounter Date Diagnosis Assessment Notes Treatment Notes Treatment Clinical Notes Nov, Medication monitoring encounter (ICD-10 - Z51.81) Referring Provider: Robe Alonso (new re will be Dr. Rojas [phone]) Diagnosis: Thrombus, Atrial Fibrillation INR Goal: 2-3 [...] referral is faxed to CELESTINA Butler. Called [facility] [phone], spoke with Amanda SUMNRE RN. [facility] and take her as a patient. [facility] fax number is [phone]. [facility] Order: draw PT/INR on Completed by: Susan Euceda RN [facility] Other 04-13-2022 Evaluation note* Encounter Date Diagnosis Assessment Notes Treatment Notes Treatment Clinical Notes Nov, Medication monitoring encounter (ICD-10 - Z51.81) Referring Provider: Robe Alonso (new re will be Dr. Rojas [phone]) Diagnosis: Thrombus, Atrial Fibrillation INR Goal: 2-3 INR: 1.2 ( 12/09 ) Tablet Size: 5mg Wednesday: 5mg Wednesday: 7.5mg Wednesday: 5mg Wednesday: 7.5mg : 5mg Wednesday: 7.5mg Wednesday: 5mg Total Weekly Dose: 42.5mg [facility] was called, LVM at 8:38 asking for [...] at this time and to notify [facility] if she cannot make appointment. Patient will have INR drawn in clinic. It is recommended for patient to come in for appointments. Med list is updated. A Bridge Recommendation is faxed to PCP. Called [facility] [phone], m to return call. [facility] fax number is [phone]. [facility] Order: draw PT/INR on Completed by: Susan Euceda RN [facility] Other 03-23-2022 Evaluation note* Encounter Date Diagnosis [...] the above instructions. Patient repeated correctly. Called [facility] [phone], lvm with instructions. [facility] fax number is [phone]. This Order is faxed. [facility] Order: draw PT/INR on Thursday, November 25, 2021 Completed by: Susan Euceda RN [facility] Other 03-15-2022 Evaluation note* Encounter Date Diagnosis [...] is drinking Boost supplement once daily. Called [facility] [phone], lvm for nurse with [employer] Amanda. LVM on Amanda's phone. Amanda returned call, discussed the above instructions. [facility] fax number is [phone]. This Order is faxed. [facility] Order: draw PT/INR on Thursday, November 18, 2021 Completed by: Susan Euceda RN [facility] Other 03-09-2022 Evaluation note* Encounter Date Diagnosis Assessment Notes Treatment Notes Treatment Clinical Notes Oct, Medication monitoring encounter (ICD-10 - Z51.81) Referring Provider: Robe Alonso Diagnosis: Thrombus, Atrial Fibrillation INR Goal: 2-3 INR: 1.11 ([facility] 11/05/21) Tablet Size: 5mg Wednesday: 5mg [...] plan. Patient states she will call [facility] after talking to family members for rides. Called [facility] for a return call. Addendum: Nurse Adriana SUMNER from [facility] returned call and stated understanding to instructions. Phone for HH [phone] ext [phone], nurse with [facility]. [facility] fax number is [phone] per pt. Home Health Order: draw INR on Thursday, November 11, 2021 Completed by: Susan Euceda RN [facility] 03-02-2022 Evaluation note* Encounter Date Diagnosis [...] is made aware of bleeding. [phone]), nurse with [facility]. [facility] fax number is [phone] per pt. Home Health Order: draw INR on Completed by: Jeane Dykes [facility] Other 02-24-2022 Evaluation note* Encounter Date Diagnosis Assessment Notes Treatment Notes Treatment Clinical Notes Sep, Medication monitoring encounter (ICD-10 - Z51.81) Referring Provider: Robe Alonso Diagnosis: Thrombus, Atrial Fibrillation INR Goal: 2-3 INR: 1.29 ([facility]) Tablet Size: 5mg Wednesday: 5mg Wednesday: 5mg Wednesday: 5mg Wednesday: 5mg : 5mg Wednesday: 5mg Wednesday: 5mg Total Weekly Dose: 35mg Boost additional 2.5mg for 3 days, then resume above plan. Follow up with a draw on Wednesday. Patient was not bridged with Lovenox at discharge from [facility]. Patient has been back on warfarin for 1 week. HH Adriana's phone number ([phone]), nurse with [facility]. [facility] fax number is [phone] per pt. Home Health Order: draw INR on Wednesday10/28/2021 Completed by: Jeane Dykes [facility] Other 01-01-2022 History of Present illness Narrative* [...] details. * She has remote history of SC , cardiogenic shock, PCI circumflex and iABP, with persistent severe LV dysfunction. She later occluded her cicumflex. Years later, she had HF and severe MR and underwentmitral valve repair at [facility]. She had recurrent VT and atrial arrhythmias, and underwent several ablations and repeat percutaneous MVR at [facility]. After her MVR and ablation in July,, she had KALLI when then improved. She has had recurrent ICD shocks for atrial flutter. * Personal review of ECG and cardiac data reviewed * Outside records: * EP study and successful ablation of atrial flutter. Multiple atrial tachycardias, possible left atrial tachycardia also noted and not targeted for ablation. December 2021. * Discharge summary [facility] Oct 2021 * Cardiology consult Oct 2021 [...] Patient reports that she follows [facility]. [facility] cardiology for further adjustment of medication. Patient will notify us with whom she follows. Co nsider referral to advanced heart failure section. * Sustained VT s/p ablations at [facility]. No documentation of ablations available in chart. * CAD, chronic. See above. Reviewed meds. Continue meds. Discussed refills. * Biventricular ICD for refractory heart failure. Medtronic [id number]. Reviewed device check. No recentdevice check noted. Order sent to [facility] device clinic for device checks. * Hypertension, chronic. Stable. Reviewed meds. Continue meds. Discussed refills. * Migraine headache * AHA recommendations for exercise, diet, and behavioral modification reviewed with pt. * The patient and I discussed the mechanism of arrhythmia, ablation to prevent atrial flutter, no recurrent inappropriate shocks, need for compliance for device checks, order sent to [facility] for device checks, follow-up with heart failure clinic at [facility], indications for and typesof medications, discussion if and what medication refills needed, treatment options, risks, benefits, and imponderables. [place] [employer] lifestyle changes and behavioral modification discussed. All questions answered in detail. Counseling over 50% visit regarding above. Patient appreciative of care. * Grammar * Please excuse grammatical or dictation errors as software dictation application being used. [facility] DO Work Phone: 1(720) 844-515011-18-2021 Evaluation note* Encounter Date Diagnosis Assessment Notes [...] 2 weeks. Seen by Memo Fuchs PharmD [facility] Other 11-01-2021 Evaluation note* Encounter Date Diagnosis [...] 2 weeks. Seen by Susan Euceda RN [facility] Other 10-11-2021 Evaluation note* Encounter Date Diagnosis [...] 2 weeks. Seen by Jose Molina PharmD [facility] Other 10-17-2020 History of Past illness Narrative* [...] 260ms and 260ms) terminating VT. Transfer to [facility] on 06/20 Plan: Continue amiodarone 400 [...] 07/13/2012 1 09/15/2011 Overview: IV Fentanyl PRN, BILINGUAL INSIDE SALES REPRESENTATIVE, Lidoderm patches, Po pain meds Pulmonary insuff [...] papillary muscles and chordal apparatus Dual chamber PATTERNMAKER METAL BENCH-D 07/23/2020 Overview: On 07.14.12 -fired x6 for SVT/AF HRs 140-150 (pacer set at 130- any HR over that it recognizes as VT). EP consulted- will follow their recommendations (will continue po amio taper to control rate). Needs pacer check- Wednesday07.18.2012- will d/w EP about pacer check. H/o GERD 07/23/2020 Overview: 07.18.2012: Asymptomatic. On Protonix. documented as of this encounter (statuses as of 01/14/2022) [facility] History of Past illness Narrative* Problem [...] 260ms and 260ms) terminating VT. Transfer to [facility] on 06/20 Plan: Continue amiodarone 400 [...] 07/13/2012 1 09/15/2011 Overview: IV Fentanyl PRN, BILINGUAL INSIDE SALES REPRESENTATIVE, Lidoderm patches, Po pain meds Pulmonary insuff [...] papillary muscles and chordal apparatus Dual chamber PATTERNMAKER METAL BENCH-D 07/23/2020 Overview: On 07.14.12 -fired x6 for SVT/AF HRs 140-150 (pacer set at 130- any HR over that it recognizes as VT). EP consulted- will follow their recommendations (will continue po amio taper to control rate). Needs pacer check- Wednesday07.18.2012- will d/w EP about pacer check. H/o GERD 07/23/2020 Overview: 07.18.2012: Asymptomatic. On Protonix. documented as of this encounter (statuses as of 04/12/2022) [facility] History of Past illness Narrative* Problem [...] 260ms and 260ms) terminating VT. Transfer to [facility] on 06/20 Plan: Continue amiodarone 400 [...] 07/13/2012 1 09/15/2011 Overview: IV Fentanyl PRN, BILINGUAL INSIDE SALES REPRESENTATIVE, Lidoderm patches, Po pain meds Pulmonary insuff [...] with in stent restenosis)-IABP, AICD 1998, HTN (UJDAH), HPL, ex-smoker (1.5 ppd for 15 yrs, [...] papillary muscles and chordal apparatus Dual chamber PATTERNMAKER METAL BENCH-D 07/23/2020 Overview: On 07.14.12 -fired x6 for SVT/AF HRs 140-150 (pacer set at 130- any HR over that it recognizes as VT). EP consulted- will follow their recommendations (will continue po amio taper to control rate). Needs pacer check- Wednesday07.18.2012- will d/w EP about pacer check. H/o GERD 07/23/2020 Overview: 07.18.2012: Asymptomatic. On Protonix. documented as of this encounter (statuses as of 06/01/2022) [facility] of Past illness Narrative* Problem [...] 260ms and 260ms) terminating VT. Transfer to [facility] on 06/20 Plan: Continue amiodarone 400 [...] 07/13/2012 1 09/15/2011 Overview: IV Fentanyl PRN, BILINGUAL INSIDE SALES REPRESENTATIVE, Lidoderm patches, Po pain meds Pulmonary insuff [...] CBC, Coags, BMP, Mg, Phos Basename 07/12/12 0506 07/11/12 2220 WBC 8.50 6.78 HB 13.1 [...] papillary muscles and chordal apparatus Dual chamber PATTERNMAKER METAL BENCH-D 07/23/2020 Overview: On 07.14.12 -fired x6 for SVT/AF HRs 140-150 (pacer set at 130- any HR over that it recognizes as VT). EP consulted- will follow their recommendations (will continue po amio taper to control rate). Needs pacer check- Wednesday07.18.2012- will d/w EP about pacer check. H/o GERD 07/23/2020 Overview: 07.18.2012: Asymptomatic. On Protonix. documented as of this encounter (statuses as of 07/01/2022) [facility] of Past illness Narrative* Problem [...] 260ms and 260ms) terminating VT. Transfer to [facility] on 06/20 Plan: Continue amiodarone 400 [...] 07/13/2012 1 09/15/2011 Overview: IV Fentanyl PRN, BILINGUAL INSIDE SALES REPRESENTATIVE, Lidoderm patches, Po pain meds Pulmonary insuff [...] papillary muscles and chordal apparatus Dual chamber PATTERNMAKER METAL BENCH-D 07/23/2020 Overview: On 07.14.12 -fired x6 for SVT/AF HRs 140-150 (pacer set at 130- any HR over that it recognizes as VT). EP consulted- will follow their recommendations (will continue po amio taper to control rate). Needs pacer check- Wednesday07.18.2012- will d/w EP about pacer check. H/o GERD 07/23/2020 Overview: 07.18.2012: Asymptomatic. On Protonix. documented as of this encounter (statuses as of 07/27/2022) [facility] of Past illness Narrative* Problem [...] 260ms and 260ms) terminating VT. Transfer to [facility] on 06/20 Plan: Continue amiodarone 400 [...] 07/13/2012 1 09/15/2011 Overview: IV Fentanyl PRN, BILINGUAL INSIDE SALES REPRESENTATIVE, Lidoderm patches, Po pain meds Pulmonary insuff [...] papillary muscles and chordal apparatus Dual chamber PATTERNMAKER METAL BENCH-D 07/23/2020 Overview: On 07.14.12 -fired x6 for SVT/AF HRs 140-150 (pacer set at 130- any HR over that it recognizes as VT). EP consulted- will follow their recommendations (will continue po amio taper to control rate). Needs pacer check- Wednesday07.18.2012- will d/w EP about pacer check. H/o GERD 07/23/2020 Overview: 07.18.2012: Asymptomatic. On Protonix. documented as of this encounter (statuses as of 08/30/2022) [facility] History of Past illness Narrative* Problem [...] 260ms and 260ms) terminating VT. Transfer to [facility] on 06/20 Plan: Continue amiodarone 400 [...] 07/13/2012 1 09/15/2011 Overview: IV Fentanyl PRN, BILINGUAL INSIDE SALES REPRESENTATIVE, Lidoderm patches, Po pain meds Pulmonary insuff [...] papillary muscles and chordal apparatus Dual chamber PATTERNMAKER METAL BENCH-D 07/23/2020 Overview: On 07.14.12 -fired x6 for SVT/AF HRs 140-150 (pacer set at 130- any HR over that it recognizes as VT). EP consulted- will follow their recommendations (will continue po amio taper to control rate). Needs pacer check- Wednesday07.18.2012- will d/w EP about pacer check. H/o GERD 07/23/2020 Overview: 07.18.2012: Asymptomatic. On Protonix. documented as of this encounter (statuses as of 09/11/2022) [facility] of Past illness Narrative* Problem [...] 260ms and 260ms) terminating VT. Transfer to [facility] on 06/20 Plan: Continue amiodarone 400 [...] 07/13/2012 1 09/15/2011 Overview: IV Fentanyl PRN, BILINGUAL INSIDE SALES REPRESENTATIVE, Lidoderm patches, Po pain meds Pulmonary insuff [...] papillary muscles and chordal apparatus Dual chamber PATTERNMAKER METAL BENCH-D 07/23/2020 Overview: On 07.14.12 -fired x6 for SVT/AF HRs 140-150 (pacer set at 130- any HR over that it recognizes as VT). EP consulted- will follow their recommendations (will continue po amio taper to control rate). Needs pacer check- Wednesday07.18.2012- will d/w EP about pacer check. H/o GERD 07/23/2020 Overview: 07.18.2012: Asymptomatic. On Protonix. documented as of this encounter (statuses as of 11/28/2022) [facility] History of Past illness Narrative* Problem [...] 260ms and 260ms) terminating VT. Transfer to [facility] on 06/20 Plan: Continue amiodarone 400 [...] 07/13/2012 1 09/15/2011 Overview: IV Fentanyl PRN, BILINGUAL INSIDE SALES REPRESENTATIVE, Lidoderm patches, Po pain meds Pulmonary insuff [...] papillary muscles and chordal apparatus Dual chamber PATTERNMAKER METAL BENCH-D 07/23/2020 Overview: On 07.14.12 -fired x6 for SVT/AF HRs 140-150 (pacer set at 130- any HR over that it recognizes as VT). EP consulted- will follow their recommendations (will continue po amio taper to control rate). Needs pacer check- Wednesday07.18.2012- will d/w EP about pacer check. H/o GERD 07/23/2020 Overview: 07.18.2012: Asymptomatic. On Protonix. documented as of this encounter (statuses as of 03/05/2023) [facility] History of Past illness Narrative* Problem [...] 260ms and 260ms) terminating VT. 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 EP consulted- will follow their recommendations (will continue po amio taper to control rate). Needs pacer check- Wednesday07.18.2012- will d/w EP about pacer check. H/o GERD 07/23/2020 Overview: 07.18.2012: Asymptomatic. On Protonix. documented as of this encounter (statuses as of 03/29/2023) [facility] History of Past illness Narrative* Problem [...] 260ms and 260ms) terminating VT. 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 EP consulted- will follow their recommendations (will continue po amio taper to control rate). Needs pacer check- Wednesday07.18.2012- will d/w EP about pacer check. H/o GERD 07/23/2020 Overview: 07.18.2012: Asymptomatic. On Protonix. documented as of this encounter (statuses as of 04/10/2023) [facility] History of Past illness Narrative* Problem [...] 260ms and 260ms) terminating VT. 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 EP consulted- will follow their recommendations (will continue po amio taper to control rate). Needs pacer check- Wednesday07.18.2012- will d/w EP about pacer check. H/o GERD 07/23/2020 Overview: 07.18.2012: Asymptomatic. On Protonix. documented as of this encounter (statuses as of 04/22/2023) [facility] History of Past illness Narrative* Problem [...] 260ms and 260ms) terminating VT. 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 EP consulted- will follow their recommendations (will continue po amio taper to control rate). Needs pacer check- Wednesday07.18.2012- will d/w EP about pacer check. H/o GERD 07/23/2020 Overview: 07.18.2012: Asymptomatic. On Protonix. documented as of this encounter (statuses as of 05/07/2023) [facility] History of Past illness Narrative* Problem [...] 260ms and 260ms) terminating VT. 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 EP consulted- will follow their recommendations (will continue po amio taper to control rate). Needs pacer check- Wednesday07.18.2012- will d/w EP about pacer check. H/o GERD 07/23/2020 Overview: 07.18.2012: Asymptomatic. On Protonix. documented as of this encounter (statuses as of 07/28/2023) [facility] History of Past illness Narrative* Problem [...] 260ms and 260ms) terminating VT. 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 EP consulted- will follow their recommendations (will continue po amio taper to control rate). Needs pacer check- Wednesday07.18.2012- will d/w EP about pacer check. H/o GERD 07/23/2020 Overview: 07.18.2012: Asymptomatic. On Protonix. documented as of this encounter (statuses as of 07/28/2023) [facility] History of Past illness Narrative* Problem [...] 260ms and 260ms) terminating VT. 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 EP consulted- will follow their recommendations (will continue po amio taper to control rate). Needs pacer check- Wednesday07.18.2012- will d/w EP about pacer check. H/o GERD 07/23/2020 Overview: 07.18.2012: Asymptomatic. On Protonix. documented as of this encounter (statuses as of 08/10/2023) [facility] Hos[facility] March 30, 2024 4:36pm Note Date/Time March 30, 2024 4:3 6pm [facility] [address] [place] [address] Cardiology Consult Note Signed Patient: Essence Vincent MR#: [id number] : 1970 Acct:[id number] Age/Sex: 53 / F Adm Date: 4 Loc: Room: [address] [place] [address] Type: ADM INOo Attending Dr: Patrica Mcmahon MD Copies to: Amanda Grace APRN, REMNANT SORTER MD Megan Mcarthur DO~ Cardiology HPI History of Present Illness Consult Date: 03/30/24 Reason for Consult: Ischemic cardiomyopathy, remote SC, remote MVR HPI: Ms. Vincent is a [...] have valve [facility] valve [facility]. She also has AICD biventricular pacemaker followed by Dr. Munson at [facility]. She has not seen me since 2021. Apparently she had her generator change with Dr. Margareth Nunez in 2023. She no longer follows withcardiology locally. I believe she is getting most of her cardiology care at [facility] electrophysiology care between [facility] and ?EM In any event, she has left A[facility] Medical History (Updated 03/30/24 @ 16:35 by Megan Hoskins DO) Restless leg syndrome Anxiety Paroxysmal A-fib Deep vein thrombosis (DVT) Presence of combination internal cardiac defibrillator (ICD) and pacemaker Ventricular tachycardia (12/06/18) Hypotension CHF (congestive heart failure) Atrial thrombus Large clot found in heart at [facility]. COPD (chronic obstructive pulmonary disease) Myocardial infarction [...] breath or wheezing 02/17/24 [History Confirmed 03/30/24] [id number]-byfctqgkfphyo-pujtlkde 50 mg-300 mg-40 mg capsule (Fioricet) 1 [...] 8.3 H Lymph # (Auto) N/A 1.6 [place] # (Auto) N/A 1.0 H Eos # [...] Code(s): I25.10 - Atherosclerotic heart disease of [place] coronary artery without angina pectoris (2) Ischemic [...] <Electronically signed by Megan Hoskins DO> 03/30/[id number] [facility] Work Phone: evaluation note* Diagnosis Onset Date Resolution Status Afib acute Anemia acute CAD (coronary artery disease) acute Iron deficiency anemia acute Ischemic cardiomyopathy with implantable cardioverter-defibrillator (ICD) acute Palpitations acute Supratherapeutic INR acute Ventricular tachycardia acut e [facility] noteNo InformationNort [employer]SHORE Other Evaluation noteNoSeattle [employer] Other Evaluation note* Diagnosis Onset Date Resolution Status KALLI (acute kidney injury) ac [place] Digoxin toxicity acute Elevated troponin I level [place] Hypotension acute Thrombocytopenia acute [facility] noteNo assessment information available [facility] Work Phone: Evaluation note* Diagnosis Persistent atrial fibrillation (HCC)- Primary Atrial fibrillation [facility] Diagnosis ICD (implantable cardioverter-defibrillator) battery depletion documented in this encounter [facility] Work Phone: Evaluation note* Diagnosis ICD (implantable cardioverter-defibrillator) battery depletion Elective replacement of implantable cardioverter-defibrillator (ICD) battery required- Primary Biventricular implantable cardioverter-defibrillator (ICD) in situ Biventricular implantable cardioverter-defibrillator (ICD) in situ Elective replacement of implantable cardioverter-defibrillator (ICD) battery required documented in this encounter [facility] Work Phone: Evaluation note* Diagnosis Elective replacement of implantable cardioverter-defibrillator (ICD) battery required- Primary Biventricular implantable cardioverter-defibrillator (ICD) in situ Elective replacement of implantable cardioverter-defibrillator (ICD) battery required Atrial tachycardia Other specified cardiac dysrhythmias Paroxysmal atrial fibrillation (CMS/HCC) Atrial fibrillation CAD (coronary artery disease) Coronary atherosclerosis of unspecified type of vessel, [place] or graft VT (ventricular tachycardia) (CMS/HCC) Paroxysmal ventricular tachycardia Biventricular implantable cardioverter-defibrillator (ICD) in situ Biventricular implantable cardioverter-defibrillator (ICD) in situ Elective replacement of implantable cardioverter-defibrillator (ICD) battery required documented in this encounter [facility] Work Phone: Evaluation note* Diagnosis Hypokalemia- Primary Hypopotassemia Hypokalemia Hypopotassemia Dizziness Dizziness and giddiness Longstanding persistent atrial fibrillation (HCC) documented [facility] [place] [facility] Diagnosis Longstanding persistent atrial fibrillation (HCC)- Primary [facility] [place] [facility]* Diagnosis Onset Date Resolution Status Cellulitis of face noneactiv e [facility] Work Phone: Evaluation note* Diagnosis Onset Date Resolution Status Generalized anxiety disorder acute Hypokalemia acute Right shoulder pain acute Right upper limb pain acute [facility] Work Phone: Evaluation note* Diagnosis Onset Date Resolution Status Atrial fibrillation acute Coronary artery disease acut e Generalized anxiety disorder acute GERD (gastroesophageal reflux disease) acute History of aneurysm acute History of SC (myocardial infarction) acute History of mitral valve replacement acute Hypokalemia acute Migraines acute Restless leg syndrome acute Right shoulder pain acute Right upper limb pain acute Depression acute Generalized anxiety disorder acute [facility] Work Phone: Evaluation note* Diagnosis Onset Date Resolution Status Atrial fibrillation acute Coronary artery disease acut e Generalized anxiety disorder acute GERD (gastroesophageal reflux disease) acute History of aneurysm acute History of SC (myocardial infarction) acute History of mitral valve replacement acute Hypokalemia acute Migraines acute Restless leg syndrome acute Right shoulder pain acute Right upper limb pain acute Contusion, upper arm acute Depression acute Generalized anxiety disorder acute Injury of right upper arm ac [place] Chest pain acute Heart palpitations acute [facility] Work Phone: Evaluation note* Diagnosis Onset Date Resolution Status Atrial fibrillation acute Coronary artery disease acut e Generalized anxiety disorder acute GERD (gastroesophageal reflux disease) acute History of aneurysm acute History of SC (myocardial infarction) acute History of mitral valve replacement acute Hypokalemia acute Migraines acute Restless leg syndrome acute Right shoulder pain acute Right upper limb pain acute Contusion, upper arm acute Depression acute Generalized anxiety disorder acute Injury of right upper arm ac [place] ASCVD (arteriosclerotic cardiovascular disease) acute Atrial thrombus [...] acute Ventricular tachycardia August 04, 2018 acute [facility] Work Phone: Hisxide general Narrative - Reported* Type Description Date [...] see surgical hx Hospitalization History heart issues [facility] [employer] Other History general Narrative - ReportedNortPrime Healthcare Services [employer] Other History general Narrative - Reported* Type [...] see surgical hx Hospitalization History heart issues [employer] Other History of Present illness Narrative* She is referred by Dr. Hoskins for evaluation for ablation of atrial flutter. * She has remote history of SC , cardiogenic shock, PCI circumflex and iABP, with persistent severe LV dysfunction. She later occluded her cicumflex. Years later, she had HF and severe MR and underwentmitral valve repair at [facility]. She had recurrent VT and atrial arrhythmias, and underwent several ablations and repeat percutaneous MVR at [facility]. After her MVR and ablation in [...] reviewed * Outside records: * Discharge summary [facility] Oct 2021 * Cardiology consult Oct 2021 * ECG Oct 2021 * H and P Oct 2021 * Echo Oct 2021. LVEF 15% * ECG: Today. Atrial flutter. LAD. QT 400 ms * See signed ECG and check /Paceart. * Imp / Plan * Paroxsymal atrial flutter. Mutliple ICD shocks. Shared decision making re: atrial flutter management. Preop cardiac evaluation performed. [place] decision tool. She opts for EP study ablation of atrial flutter. Procedures, risks, benefits, and imponderables reviewed. Consented. * Chronic systolic heart failure. Stable NYHA III C HF. Reviewed meds. Continue meds. Refills. * Sustained VT s/p ablations at [facility]. No documentation of ablations available in chart at time of visit * CAD, chronic. See above. Reviewed meds. Continue meds. Refills. * Biventricular ICD for refractor heart failure. Medtronic [id number]. Reviewed device check. Followed at [facility]. * Preop cardiac eval. See orders. * [...] needed, treatment options, risks, benefits, and imponderables. [employer] lifestyle changes and behavioral modification discussed. All questions answered in detail. Counseling over 50% visit regarding above. Patient appreciative of care. * Grammar * Please excuse grammatical or dictation errors as software dictation application being used. [facility] DO Work Phone: Hospital Discharge instructions* Attachments The following attachments cannot be sent through Care Everywhere. * Hypokalemia ([place]) [facility] instructions Additional Instructions It does not [...] Lovenox. They will tell you when to stop.[facility] Work Phone: Hospital Discharge instructionsAmbulatory Orders* Referral to Psychiatry Time Frame: 02/22/24, Location: None Selected [facility] Work Phone: Hospital Discharge instructions Additional Instructions Please have a PT/INR drawn on 04/03/24.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 Advance Directive(s) 03/12/2021 1:21 PM Advance Directive(s) 12/27/2020 3:12 PM Advance Directive(s) 08/18/2020 1:26 PM Advance Directive(s) 08/17/2020 6:49 PM Advance Directive(s) 08/11/2020 1:34 PM [facility] Advance Directive(s) 07/23/2020 12:14 PM [...] reflux disease) History of aneurysm History of SC (myocardial infarction) History of mitral valve replacement Hypokalemia Migraines Restless leg syndrome Right shoulder pain Right upper limb pain Depression Generalized anxiety disorder Chief Complaint ^ chest pain follow up Fall Chest pain Reason for Visit Atrial fibrillation Coronary artery disease Generalized anxiety disorder GERD (gastroesophageal reflux disease) History of aneurysm History of SC (myocardial infarction) History of mitral valve replacement [...] reflux disease) History of aneurysm History of SC (myocardial infarction) History of mitral valve replacement [...] pain acute Elevated troponin I level ac [place] Ischemic cardiomyopathy with implantable cardioverter-defibrillator (ICD) acute [...] acut e Chief Complaint Order sent [facility] for testing due in DecemberNew patient referred by Dr. Hoskins for possible ablation. Seen at [facility] 11/04/2021atient is here today for a scheduled follow upAmiodarone Order sent to [facility] for testing due in May Reason for Referral Specialty Diagnoses / Procedures Referred By Purnima ferris Referred To Contact Pharmacist / Pharmacy Diagnoses Longstanding persistent atrial fibrillation (HCC) Swapnil Brand MD [address] [place] [address] [address] [facility] [address] [place] [address] Referral ID Status Reason Start Date Expiration Date Visits Requested Visits Authorized [id number] Authorized Specialty Services Required 10/06/2023 10/05/2024 99 99 Scheduling Instructions [facility] Medication Management Question Answer New Start No Tx Agent Warfarin INR Goal 2.0-3.0 [3] Tx Duration Indefinite Comments Electronic signature for this referral acknowledges acceptance of entering into a collaborative practice agreement pursuant to Section 4729.39 of the [place] Revised Code. Specialty Diagnoses / Procedures Referred By Purnima ferris Referred To Contact Cardiology Diagnoses ICD (implantable cardioverter-defibrillator) battery depletion Procedures Cardiac Device Check - In Clinic Margareth Nunez MD [address] [place] [address] Referral ID Status Reason Start Date Expiration Date Visits Requested Visits Authorized [id number] Pending Review Perform Procedure 3 07/26/2024 52 52 Additional Source Comments INFORMATION SOURCE (unrecogn ized section and content) DATE CREATED AUTHOR 10/19/2018 [facility] [employer] DATE CREATED AUTHOR AUTHOR'S ORGANIZ ATION 09/30/2021 [employer] DATE CREATED AUTHOR AUTHOR'S ORGANIZ ATION 02/07/2022 [facility] DATE CREATED AUTHOR AUTHOR'S ORGANIZ ATION 04/26/2022 [employer] DATE CREATED AUTHOR AUTHOR'S ORGANIZ ATION 02/06/2023 [facility] DATE CREATED AUTHOR AUTHOR'S ORGANIZ ATION 08/29/2023 [facility] DATE CREATED AUTHOR AUTHOR'S ORGANIZ ATION 09/30/2023 [facility] DATE CREATED AUTHOR AUTHOR'S ORGANIZ ATION 09/30/[address] [facility] DATE CREATED AUTHOR AUTHOR'S ORGANIZ ATION 10/05/2023 Jere Millard [facility] DATE CREATED AUTHOR AUTHOR'S ORGANIZ ATION 10/14/2023 [facility] DATE CREATED AUTHOR AUTHOR'S ORGANIZ ATION 01/07/2024 [facility] DATE CREATED AUTHOR AUTHOR'S ORGANIZ ATION 04/25/2024 [facility] DATE CREATED AUTHOR AUTHOR'S ORGANIZ ATION 04/26/2024 [facility] Source Comments (unrecognize d section and content) In the event this informatio n is protected by the Federal Confidentiality of Alcohol and Drug Abuse Patient Records regulations: The Federal rules restrict any use of the information to criminally investigate or prosecute any alcohol or drug abuse patient.[facility] the event this information is protected by the Federal Confidentiality of Alcohol and Drug Abuse Patient Records regulations: The Federal rules restrict any use of the information to criminally investigate or prosecute any alcohol or drug abuse patient.[facility] HospitalIn the event this information is protected by the Federal Confidentiality of Alcohol and Drug Abuse Patient Records regulations: The Federal rules restrict any use of the information to criminally investigate or prosecute any alcohol or drug abuse patient.[facility] HospitalIn the event this information is protected by the Federal Confidentiality of Alcohol and Drug Abuse Patient Records regulations: The Federal rules restrict any use of the information to criminally investigate or prosecute any alcohol or drug abuse patient.[facility] HospitalIn the event this information is protected by the Federal Confidentiality of Alcohol and Drug Abuse Patient Records regulations: The Federal rules restrict any use of the information to criminally investigate or prosecute any alcohol or drug abuse patient.[facility] HospitalIn the event this information is protected by the Federal Confidentiality of Alcohol and Drug Abuse Patient Records regulations: The Federal rules restrict any use of the information to criminally investigate or prosecute any alcohol or drug abuse patient.[facility] HospitalIn the event this information is protected by the Federal Confidentiality of Alcohol and Drug Abuse Patient Records regulations: The Federal rules restrict any use of the information to criminally investigate or prosecute any alcohol or drug abuse patient.[facility] HospitalIn the event this information is protected by the Federal Confidentiality of Alcohol and Drug Abuse Patient Records regulations: The Federal rules restrict any use of the information to criminally investigate or prosecute any alcohol or drug abuse patient.[facility] HospitalIn the event this information is protected by the Federal Confidentiality of Alcohol and Drug Abuse Patient Records regulations: The Federal rules restrict any use of the information to criminally investigate or prosecute any alcohol or drug abuse patient.[facility] HospitalIn the event this information is protected by the Federal Confidentiality of Alcohol and Drug Abuse Patient Records regulations: The Federal rules restrict any use of the information to criminally investigate or prosecute any alcohol or drug abuse patient.[facility] HospitalIn the event this information is protected by the Federal Confidentiality of Alcohol and Drug Abuse Patient Records regulations: The Federal rules restrict any use of the information to criminally investigate or prosecute any alcohol or drug abuse patient.[facility] HospitalIn the event this information is protected by the Federal Confidentiality of Alcohol and Drug Abuse Patient Records regulations: The Federal rules restrict any use of the information to criminally investigate or prosecute any alcohol or drug abuse patient.[facility] HospitalIn the event this information is protected by the Federal Confidentiality of Alcohol and Drug Abuse Patient Records regulations: The Federal rules restrict any use of the information to criminally investigate or prosecute any alcohol or drug abuse patient.[facility] HospitalIn the event this information is protected by the Federal Confidentiality of Alcohol and Drug Abuse Patient Records regulations: The Federal rules restrict any use of the information to criminally investigate or prosecute any alcohol or drug abuse patient.[facility] HospitalIn the event this information is protected by the Federal Confidentiality of Alcohol and Drug Abuse Patient Records regulations: The Federal rules restrict any use of the information to criminally investigate or prosecute any alcohol or drug abuse patient.[facility] HospitalIn the event this information is protected by the Federal Confidentiality of Alcohol and Drug Abuse Patient Records regulations: The Federal rules restrict any use of the information to criminally investigate or prosecute any alcohol or drug abuse patient.[facility] the event this information is protected by the Federal Confidentiality of Alcohol and Drug Abuse Patient Records regulations: The Federal rules restrict any use of the information to criminally investigate or prosecute any alcohol or drug abuse patient.[facility] the event this information is protected by the Federal Confidentiality of Alcohol and Drug Abuse Patient Records regulations: The Federal rules restrict any use of the information to criminally investigate or prosecute any alcohol or drug abuse patient.[facility] the event this information is protected by the Federal Confidentiality of Alcohol and Drug Abuse Patient Records regulations: The Federal rules restrict any use of the information to criminally investigate or prosecute any alcohol or drug abuse patient.[facility] the event this information is protected by the Federal Confidentiality of Alcohol and Drug Abuse Patient Records regulations: The Federal rules restrict any use of the information to criminally investigate or prosecute any alcohol or drug abuse patient.[facility] Care Teams (unrecognized sec tion and content) Team Status: Active Member Role Status Dates Karen Garner MD Primary Care Provider Active Team Status: Active Member Role Status Dates Darian Smiley DO Attending Provider Active Start: November 29, 2003 Team Status: Inactive Member Role Status Dates Amanda Grace APRN GENERAL LITHOGRAPHIC WORKER-C Primary Care Provider Active Start: November 11, 2023 End: November 11, 2023 Verona Hoskins APRN Attending Provider Active Start: November 11, 2023 End: November 11, 2023 Team Status: Inactive Member Role Status Dates Tanner Mae Jr, MD Emergency Provider Active Start: January 24, 2024 End: January 24, 2024 Karen Garner MD Primary Care Provider Active Start: January 24, 2024 End: January 24, 2024 Guinea Pig Breeder Relationship Specialty Start Date End Date Robe Alonso PCP - General 04/16/10 Nadir Hoskins [address] [address] Physician Cardiology 10/13/18 Margareth Nunez [address] [place] [phone] Cardiology 10/14/18 Violeta Chan MD [address] [place] [address] Well Reactivator Operator Cardiology 07/04/20 Violeta Chan MD [address] [place] [address] Primary Staff Physician Cardiology 02/11/21 Guinea Pig Breeder Relationship Specialty Start Date End Date Robe Alonso PCP - General 04/16/10 Nadir oHskins [address] [address] Physician Cardiology 10/13/18 Margareth Nunez [address] [place] [phone] Cardiology 10/14/18 Violeta Chan MD [address] [place] [address] Well Reactivator Operator Cardiology 07/04/20 Violeta Chan MD [address] [place] [address] Primary Staff Physician Cardiology 02/11/21 Team Status: Active Member Role Status Dates Darian Smiley DO Attending Provider Active Team Status: Active Member Role Status Dates PHYSICIAN NO FAMILY Primary Care Provider Active Guinea Pig Breeder Relationship Specialty Start Date End Date Robe Alonso PCP - General 04/16/10 Nadir Hoskins [address] [address] Physician Cardiology 10/13/18 Margareth Nunez MD Cardiology 10/14/18 Violeta Chan MD [address] [facility] [place] [address] Well Reactivator Operator Cardiology 07/04/20 Violeta Chan MD [address] [facility] [place] [address] Primary Staff Physician Cardiology 02/11/21 Guinea Pig Breeder Relationship Specialty Start Date End Date Robe Alonso (Fax) PCP - General 04/16/10 Nadir Hoskins [address] [place] [address] Physician Cardiology 10/13/18 Margareth Nunez MD [address] [place] [address] Cardiology 10/14/18 Violeta Chan MD [address] [place] [address] Well Reactivator Operator Cardiology 07/04/20 Violeta Chan MD [address] [place] [address] Primary Staff Physician Cardiology 02/11/21 Guinea Pig Breeder Relationship Specialty Start Date End Date Robe Alonso (Fax) PCP - General 04/16/10 Nadir Hoskins [address] [place] [address] Physician Cardiology 10/13/18 Margareth Nunez MD [address] [place] [address] Cardiology 10/14/18 Violeta Chan MD [address] [place] [address] Well Reactivator Operator Cardiology 07/04/20 Violeta Chan MD [address] [place] [address] Primary Staff Physician Cardiology 02/11/21 Guinea Pig Breeder Relationship Specialty Start Date End Date Robe Alonso (Fax) PCP - General 04/16/10 Nadir Hoskins [address] [place] [address] Physician Cardiology 10/13/18 Margareth Nunez MD [address] [place] [address] Cardiology 10/14/18 Violeta Chan MD [address] [place] [address] Well Reactivator Operator Cardiology 07/04/20 Violeta Chan MD [address] [place] [address] Primary Staff Physician Cardiology 02/11/21 Guinea Pig Breeder Relationship Specialty Start Date End Date Anju Cuevas, DMD [address] [facility] [address] Physician Oral & Maxillofacial Surgery 06/04/20 Guinea Pig Breeder Relationship Specialty Start Date End Date Robe Alonso (Fax) PCP - General 04/16/10 Nadir Hoskins [address] [place] [address] Physician Cardiology 10/13/18 Margareth Nunez MD [address] [address] Cardiology 10/14/18 Violeta Chan MD [address] [place] [address] Well Reactivator Operator Cardiology 07/04/20 Violeta Chan MD [address] [place] [address] Primary Staff Physician Cardiology 02/11/21 Guinea Pig Breeder Relationship Specialty Start Date End Date Robe Aolnso (Fax) PCP - General 04/16/10 Nadir Hoskins [address] [address] Physician Cardiology 10/13/18 Margareth Nunez MD [address] [address] Cardiology 10/14/18 Violeta Chan MD [address] [place] [address] Well Reactivator Operator Cardiology 07/04/20 Violeta Chan MD [address] [place] [address] Primary Staff Physician Cardiology 02/11/21 Guinea Pig Breeder Relationship Specialty Start Date End Date Robe Alonso (Fax) PCP - General 04/16/10 Nadir Hoskins [address] [address] Physician Cardiology 10/13/18 Margareth Nunez MD [address] [address] Cardiology 10/14/18 Violeta Chan MD [address] [place] [address] Well Reactivator Operator Cardiology 07/04/20 Violeta Chan MD [address] [place] [address] Primary Staff Physician Cardiology 02/11/21 Guinea Pig Breeder Relationship Specialty Start Date End Date Robe Alonso (Fax) PCP - General 04/16/10 Nadir Hoskins DO [address] [address] Physician Cardiology 10/13/18 Margareth Nunez MD [address] [address] Cardiology 10/14/18 Violeta Chan MD [address] [place] [address] Well Reactivator Operator Cardiology 07/04/20 Violeta Chan MD [address] [place] [address] Primary Staff Physician Cardiology 02/11/21 Guinea Pig Breeder Relationship Specialty Start Date End Date Robe Alonso (Fax) PCP - General 04/16/10 Nadir Hoskins DO [address] [place] [address] Physician Cardiology 10/13/18 Margareth Nunez MD [address] [place] [address] Cardiology 10/14/18 Violeta Chan MD [address] [place] [address] Well Reactivator Operator Cardiology 07/04/20 Violeta Chan MD [address] [place], [place] [phone] Primary Staff Physician Cardiology 02/11/21 Guinea Pig Breeder Relationship Specialty Start Date End Date Robe Alonso PCP - General 04/16/10 Nadir Hoskins DO [address] [place] [address] Physician Cardiology 10/13/18 Margareth Nunez MD [address] [place] [address] Cardiology 10/14/18 Violeta Chan MD [address] [place] [address] Well Reactivator Operator Cardiology 07/04/20 Violeta Chan MD [address] [place], [place] [phone] Primary Staff Physician Cardiology 02/11/21 Team Status: Active Member Role Status Dates Amanda Grace APRN GENERAL LITHOGRAPHIC WORKER-C Primary Care Provider Active Team Status: Inactive Member Role Status Dates Margareth Nunez MD Attending Provider Active Amanda Grace APRN GENERAL LITHOGRAPHIC WORKER-C Primary Care Provider Active Guinea Pig Breeder Relationship Specialty Start Date End Date Robe Alonso PCP - General 04/16/10 Nadir Hoskins DO [address] [phone] Physician Cardiology 10/13/18 Margareth Nunez MD [address] [id number] Cardiology 10/14/18 Violeta Chan MD [address] [place] [address] Well Reactivator Operator Cardiology 07/04/20 Violeta Chan MD [address] [place] [address] Primary Staff Physician Cardiology 02/11/21 Guinea Pig Breeder Relationship Specialty Start Date End Date Shaikh Rojas MD [facility] [address] [place] [address] PCP - General 04/24/22 Jameel Valenzuela, PETE-REMNANT SORTER [address] [facility], [facility] [address] [place], [place] [phone] Nurse Practitioner Cardiology 09/02/23 Margareth Nunez MD [address] [facility], [address] [place] [address] Consulting Physician Cardiology 09/02/23 Guinea Pig Breeder Relationship Specialty Start Date End Date Shaikh Rojas MD [facility] [address] [place] [address] PCP - General 04/24/22 Jameel Valenzuela, PASSENGER CAR CONDUCTOR-REMNANT SORTER [address] [facility], [facility] [address] [place] [address] Nurse Practitioner Cardiology 09/02/23 Margareth Nunez MD [address] [facility], [facility] [address] [place] [address] Consulting Physician Cardiology 09/02/23 Guinea Pig Breeder Relationship Specialty Start Date End Date Liam Hyman MD [address] [place] [address] PCP - General Family Medicine 09/29/23 Jameel Valenzuela, PASSENGER CAR CONDUCTOR-REMNANT SORTER [address] [facility], [facility] [address] [place] [address] Nurse Practitioner Cardiology 09/02/23 Margareth Nunez MD [address] [facility], [facility] [address] [place] [address] Consulting Physician Cardiology 09/02/23 Guinea Pig Breeder Relationship Specialty Start Date End Date Liam Hyman MD [address] [place] [phone] PCP - General Family Medicine 10/11/23 Guinea Pig Breeder Relationship Specialty Start Date End Date Liam Hyman MD [address] [place] [address] PCP - General Family Medicine [...] Procedures Cardiac Device Check - In Clinic Margareht Nunez MD [address] [facility], [facility] [address] [place] [address] Referral ID Status Reason Start Date Expiration Date Visits Requested Visits Authorized [id number] Pending Review Perform Procedure 3 07/26/2024 52 52 Specialty Diagnoses / Procedures Referred By Purnima t Referred To Contact Diagnoses Biventricular implantable cardioverter-defibrillator (ICD) in situ Elective replacement of implantable cardioverter-defibrillator (ICD) battery required Biventricular implantable cardioverter-defibrillator (ICD) in situ [Z95.810] Elective replacement of implantable cardioverter-defibrillator (ICD) battery required [Z95.810] Procedures [place] RMVL IMPLTBL DFB PLS GEN W/RPLCMT PLS GEN PLASTIC SURGERY SPECIALIST LD ICD BIV Generator Change Out Margareth Nunez MD [address] [facility] [address], [address] [place] [address] [facility] [address] [place] [address] Referral ID Status Reason Start Date Expiration Date Visits Re quested Visits Authorized [id number] 1 1 Reason Comments Dizziness Specialty Diagnoses / Procedures Referred By Purnima ferris Referred To Contact Diagnoses Hypokalemia Dizziness Swapnil Brand MD [address] [place] [address] [facility] [address] [place] [address] Referral ID Status Reason Start Date Expiration Date Visits Re quested Visits Authorized [id number] 1 1 Specialty Diagnoses / Procedures Referred By Purnima ferris Referred To Contact Pharmacist / Pharmacy Diagnoses Longstanding persistent atrial fibrillation (HCC) Swapnil Brand MD [address] [place] [address] [facility] [address] [place] [address] Referral ID Status Reason Start Date Expiration Date Visits Requested Visits Authorized [id number] Authorized Specialty Services Required 10/06/2023 10/05/2024 99 [...] (Continued by Anesthesia - Provider: Sy Gastelum APRN-SALESPERSON BURIAL NEEDS)0937 (Due: Stopped - Provider: Yessi Miller APRN-REMNANT SORTER)0948 (Anesthesia Volume Adjustment - Provider: Sy Gastelum APRN-SALESPERSON BURIAL NEEDS) PRN Medication Order 09/27/2023 09/28/2023 09/29/2023 acetaminophen [...] Cesar RN)0915 (Given - Provider: Sy Gastelum APRN-SALESPERSON BURIAL NEEDS) potassium chloride 20 mEq in 100 mL [...] Alatorre, RN) 08 (Given - Provider: Brenda Martienz, NAYLA) atorvastatin (LIPITOR) tablet 80 mg 80 [...] RT Bronchodilator Protocol: Yes - Inpatient Protocol ritfecnvop-CGPG-rrhjefnx 50-300-40 MG per capsule 1 capsule 1 [...] Tevin Gauthier, NAYLA)0134 (Stopped - Provider: Tevin Gauthier RN) sodium [...] BE BASED ON THE PRIMARY CLINICAL RECORDS. [employer] provides no warranty or guarantee of the accuracy or completeness of information in this document.
--- NOTE | 2024-04-27 20:42 | XR_ITS ---
The [address] [address] Patient Name: HORACIO LOMBARDI MRN: [id number] date: 1970 Sex: F Assigned Patient Location: ER Current Patient Location: ER Accession/Order Number: [id number] Exam Date: 04/27/2024 20:50 Report Date: 04/27/2024 22:37 At the request of: ALVARADO MCKEON Procedure: XR foot RT min 3V EXAMINATION: XR foot RT min 3V, , 04/27/2024 8:50 PM EDT INDICATION: foot pain HISTORY: Ordering Provider Reason for Exam: foot pain Technologist Note: Additional: COMPARISON: None. TECHNIQUE: Right foot x-ray: 3 view(s). FINDINGS: No acute fracture. Joint alignment is anatomic. Joint spaces are preserved. Soft tissue swelling seen about the dorsum of the right foot. XR/XR foot RT min 3V IMPRESSION: No acute fracture or traumatic malalignment. Electronically authenticated by: DEVONTE POLK Date: 04/27/2024 22:37
--- NOTE | 2024-04-27 20:42 | US_ITS ---
The [address] [address] Patient Name: HORACIO LOMBARDI MRN: [id number] date: 1970 Sex: F Assigned Patient Location: ED.MAIN Current Patient Location: ER Accession/Order Number: [id number] Exam Date: 04/27/2024 21:05 Report Date: 04/27/2024 21:42 At the request of: ALVARADO MCKEON Procedure: US venous doppler LE RT CLINICAL DATA: Evaluate for venous thrombosis. PROCEDURE: Right lower extremity venous duplex ultrasound. TECHNIQUE: Monsalve-scale, color flow, and waveform spectral analysis was performed of the right lower extremity. FINDINGS: The right common femoral, profunda femoral, femoral, and popliteal veins were compressible. The saphenous vein was compressible. No venous thrombosis was seen. The veins fill with color Doppler. Augmentation was normal. US/US venous doppler LE RT IMPRESSION: 1. No acute lower extremity deep venous thrombosis. 2. No superficial venous thrombosis. Electronically authenticated by: Juan Miguel PUCKETT Date: 04/27/2024 21:42
--- NOTE | 2024-04-27 20:44 | ED_ITS ---
Documented by User: SAMREEN Dumont 04/27/24 21:35 HPI HPI - Extremity Injury (Lower) General Chief Complaint: Extremity Injury, Lower Stated Complaint: swollen legs, concerned blood clot Time Seen by Provider: 04/27/24 20:34 Source: patient Mode of arrival: Wheelchair Limitations: no limitations History of Present Illness HPI Narrative: Patient is a 53-year-old female with a history of MO secondary to rheumatic fever and AICD currently on Coumadin who presents to the emergency department with right foot pain and swelling for the last 5 days. She states she twisted her foot at the ankle and has noticed diffuse swelling of the right foot into the ankle and up the leg. She is concerned she has a blood clot. She states her INR is due to be checked this week. She states she came to the ER today because of pain. She took Tylenol earlier today without improvement. She states she has a history of fracture in the right foot and thinks that she r ebroke it but started feeling anxious that she may have a blood clot. Related Data Home Medications ?Medication ?Instructions ?Recorded ?Confirmed atorvastatin 80 mg tablet 80 mg PO DAILY 03/18/23 07/28/23 baclofen 5 mg tablet 5 mg PO TID PRN back spasm or pain 03/18/23 05/31/23 clonazepam 0.5 mg tablet 0.5 mg PO TID PRN anxiety 03/18/23 05/31/23 isosorbide mononitrate 30 mg 30 mg PO DAILY 03/18/23 07/28/23 tablet,extended release 24 hr levothyroxine 75 mcg tablet 75 mcg PO DAILY 03/18/23 07/28/23 nitroglycerin 0.4 mg sublingual 0.4 mg sublingual Q5M PRN chest 03/18/23 07/28/23 tablet pain omeprazole 40 mg capsule,delayed 40 mg PO DAILY 03/18/23 07/28/23 release potassium chloride 20 mEq 20 meq PO DAILY 03/18/23 07/28/23 tablet,extended release(part/cryst) ropinirole 2 mg tablet 2 mg PO TID 03/18/23 07/28/23 trazodone 50 mg tablet 50 mg PO QPM 03/18/23 07/28/23 warfarin 5 mg tablet 5 mg PO DAILY 03/18/23 07/28/23 albuterol sulfate 90 mcg/actuation 1 puff inhalation Q6H PRN SOB 05/07/23 07/28/23 aerosol inhaler sezfhbnfmf-ewgjydpdwaccs-orixkbjh 1 cap PO Q4H PRN headache 05/07/23 07/28/23 50 mg-300 mg-40 mg capsule (Fioricet) metoprolol succinate 100 mg 100 mg PO DAILY 05/07/23 07/28/23 tablet,extended release 24 hr hydroxyzine HCl 10 mg tablet mg 04/27/24 olanzapine 2.5 mg tablet mg 04/27/24 sertraline 50 mg tablet mg 04/27/24 Previous Rx's ?Medication ?Instructions ?Recorded fluoxetine 20 mg capsule 40 mg (2 x 20 mg) PO DAILY #0 caps 05/08/23 furosemide 40 mg tablet (Lasix) 40 mg PO BID #60 tabs 05/08/23 amiodarone 200 mg tablet (Pacerone) 200 mg PO QD #30 tabs 05/20/23 methocarbamol 500 mg tablet 500 mg PO Q8H PRN muscle pain #10 05/31/23 tabs cephalexin 500 mg capsule 500 mg PO BID 10 days #20 caps 06/04/23 amoxicillin 875 mg-potassium 1 tab PO Q12H #20 tabs 09/05/23 clavulanate 125 mg tablet doxycycline hyclate 100 mg tablet 100 mg PO BID 7 days #14 tabs 09/05/23 oxycodone-acetaminophen 5 mg-325 1 tab PO Q8H PRN pain 3 days #9 04/27/24 mg tablet (Percocet) tabs Allergies Allergy/AdvReac Type Severity Reaction Status Date / Time erythromycin base Allergy Unknown Unknown Verified 04/19/24 04:15 ondansetron [From Zofran] AdvReac tachycardia Verified 02/17/24 22:51 Opioid HPI Opioid Management Most Recent Pain and Opioid Data: Last Pain Scale 7 06/04/23 19:05 Review of Systems ROS Constitutional Denies: fever or chills Ears, nose, mouth, and throat Denies: throat pain or nasal congestion Respiratory Denies: shortness of breath Gastrointestinal Denies: nausea or vomiting Musculoskeletal Reports: extremity pain and extremity swelling; Denies: back pain or neck pain Integumentary/Breast Denies: rash Hematologic/Lymphatic Reports: easy bruising and easy bleeding [facility] Medical History (Updated 04/27/24 @ 22:56 by Augustine Mack MD) Lactic acidosis ?E87.20 - Acidosis, unspecified (ICD-10) Fluid overload ?E87.70 - Fluid overload, unspecified (ICD-10) Nausea ?R11.0 - Nausea (ICD-10) Generalized weakness ?R53.1 - Weakness (ICD-10) ANTONINA (generalized anxiety disorder) ?F41.1 - Generalized anxiety disorder (ICD-10) RLS (restless legs syndrome) ?G25.81 - Restless legs syndrome (ICD-10) Hypothyroid ?E03.9 - Hypothyroidism, unspecified (ICD-10) Hyperlipidemia ?E78.5 - Hyperlipidemia, unspecified (ICD-10) CAD (coronary artery disease) ?I25.10 - Atherosclerotic heart disease of [place] coronary artery without angina pectoris (ICD-10) Paroxysmal atrial fibrillation ?I48.0 - Paroxysmal atrial fibrillation (ICD-10) Chronic HFrEF (heart failure with reduced ejection fraction) ?I50.22 - Chronic systolic (congestive) heart failure (ICD-10) Hypertension ?I10 - Essential (primary) hypertension (ICD-10) Rheumatic fever ?I00 - Rheumatic fever without heart involvement (ICD-10) Pacemaker ?Z95.0 - Presence of cardiac pacemaker (ICD-10) Myocardial infarct, old ?I25.2 - Old myocardial infarction (ICD-10) Multifocal pneumonia ?J18.9 - Pneumonia, unspecified organism (ICD-10) CHF (congestive heart failure) ?I50.9 - Heart failure, unspecified (ICD-10) Acute torticollis ?M43.6 - Torticollis (ICD-10) Fracture of head of humerus with routine healing ?S42.293D - Other displaced fracture of upper end of unspecified humerus, subsequent encounter for fracture with routine healing (ICD-10) Closed head injury ?S09.90XA - Unspecified injury of head, initial encounter (ICD-10) Fall from chair ?W07.XXXA - Fall from chair, initial encounter (ICD-10) Surgical History History of hysterectomy ?Z90.710 - Acquired absence of both cervix and uterus (ICD-10) Mitral valve replaced ?Z95.2 - Presence of prosthetic heart valve (ICD-10) Family History Grandmother Family history of CHF (congestive heart failure) Family history of cancer Family history of hypertension Father Family history of COPD (chronic obstructive pulmonary disease) Family history of cancer Family history of diabetes mellitus Family history of hypertension Sister Family history of COPD (chronic obstructive pulmonary disease) Mother Family history of cancer Family history of hypertension Family history of myocardial infarction Family history of stroke Brother Family history of cancer Grandfather Family history of cancer Social History Within the past year, how often did you have a drink containing alcohol: never Score interpretation: A score less than 3 is consistent with normal alcohol consumption. Smoking status: Former smoker Non-prescribed substance use: denies use Exam Narrative Exam Narrative: Gen.: Awake, alert, in no distress Head: Normocephalic, atraumatic ENT: Moist mucous membranes Respiratory: No respiratory distress Extremities: Right foot is diffusely mildly edematous and faintly ecchymotic over the dorsum. 2+ right DP pulse. Limited flexion and extension of the toes due to swelling. No bony tenderness of the medial or lateral malleolus of the right ankle. Calves are soft and nontender bilaterally. No open wounds or red streaking noted Psych: Normal mood and affect Neuro: No focal neuro deficit Skin: Warm, dry, intact Constitutional Vital Signs, click to edit/add: Last Vital Signs Temp 98.0 F 04/27/24 20:36 Pulse 80 04/27/24 20:36 Resp 16 04/27/24 20:36 BP 148/81 H 04/27/24 20:36 Pulse Ox 100 04/27/24 20:36 O2 Del Method Room Air 04/27/24 20:36 Course Vital Signs Vital signs: Vital Signs Temperature 98.0 F 04/27/24 20:36 Pulse Rate 80 04/27/24 20:36 Respiratory Rate 16 04/27/24 20:36 Blood Pressure 148/81 H 04/27/24 20:36 Pulse Oximetry 100 04/27/24 20:36 Oxygen Delivery Method Room Air 04/27/24 20:36 Temperature 98.0 F 04/27/24 20:36 Pulse Rate 80 04/27/24 20:36 Respiratory Rate 16 04/27/24 20:36 Blood Pressure 148/81 H 04/27/24 20:36 Pulse Oximetry 100 04/27/24 20:36 Oxygen Delivery Method Room Air 04/27/24 20:36 MDM - Extremity Injury (Lower) MDM Narrative Medical decision making narrative: 2133: Request pain medication, treated with [place]. Labs obtained, ultrasound of the right lower extremity and x-rays of the right foot. Imaging results and x- rays/ultrasound reading are pending and case turned over to attending physician at this time for disposition. SHARED APC VISIT, PHYSICIAN ATTESTATION: [id number] I performed a substantive part of the MDM during the patient?s E/M visit. I personally evaluated and examined the patient. I personally made or approved the documented management plan and acknowledge its risk of complications. ? Medical Records Attestation: I reviewed the patient's medical records. Lab Data Attestation: I reviewed the patient's lab results. Imaging Data Imaging: Radiologist's impression: ITS Impressions Foot X-Ray 04/27/24 20:42 IMPRESSION: No acute fracture or traumatic malalignment. Electronically authenticated by: DEVONTE POLK Date: 04/27/2024 22:37 Venous Doppler Study 04/27/24 20:42 IMPRESSION: 1. No acute lower extremity deep venous thrombosis. 2. No superficial venous thrombosis. Electronically authenticated by: Juan Miguel PUCKETT Date: 04/27/2024 21:42 Discharge Plan Discharge Stand Alone Forms: Portal Instructions Chief Complaint: Extremity Injury, Lower Clinical Impression: Ankle sprain Patient Disposition: Home, Self-Care Time of Disposition Decision: 22:52 Condition: Good Mode of Transportation: Private Vehicle Prescriptions / Home Meds: New oxycodone-acetaminophen [Percocet] 5-325 mg tablet 1 tab PO Q8H PRN (Reason: pain) 3 Days Qty: 9 0RF No Action metoprolol succinate 100 mg tablet extended release 24 hr 100 mg PO DAILY albuterol sulfate 90 mcg/actuation HFA aerosol inhaler 1 puff INHALATION Q6H PRN (Reason: SOB) hzropullno-fhqjvpzpswdmo-hfra [Fioricet] 50-300-40 mg capsule 1 cap PO Q4H PRN (Reason: headache) furosemide [Lasix] 40 mg tablet 40 mg PO BID Qty: 60 0RF fluoxetine 20 mg capsule 40 mg PO DAILY Qty: 0 0RF methocarbamol 500 mg tablet 500 mg PO Q8H PRN (Reason: muscle pain) Qty: 10 0RF cephalexin 500 mg capsule 500 mg PO BID 10 Days Qty: 20 0RF atorvastatin 80 mg tablet 80 mg PO DAILY trazodone 50 mg tablet 50 mg PO QPM isosorbide mononitrate 30 mg tablet extended release 24 hr 30 mg PO DAILY clonazepam 0.5 mg tablet 0.5 mg PO TID PRN (Reason: anxiety) omeprazole 40 mg capsule,delayed release(DR/EC) 40 mg PO DAILY levothyroxine 75 mcg tablet 75 mcg PO DAILY potassium chloride 20 mEq tablet,ER particles/crystals 20 meq PO DAILY ropinirole 2 mg tablet 2 mg PO TID warfarin 5 mg tablet 5 mg PO DAILY Patient Comments: 1.5 M,W,F, 1 tab other days nitroglycerin 0.4 mg tablet, sublingual 0.4 mg sublingual Q5M PRN (Reason: chest pain) baclofen 5 mg tablet 5 mg PO TID PRN (Reason: back spasm or pain) amiodarone [Pacerone] 200 mg Tablet 200 mg PO QD Qty: 30 0RF amoxicillin-pot clavulanate 875-125 mg tablet 1 tab PO Q12H Qty: 20 0RF doxycycline hyclate 100 mg tablet 100 mg PO BID 7 Days Qty: 14 0RF olanzapine 2.5 mg tablet hydroxyzine HCl 10 mg tablet sertraline 50 mg tablet Print Language: Citizen [place] Instructions: Ankle Sprain (ED), How to Use an Elastic Bandage (ED), P.R.I.C.E. Treatment (ED), Ice Pack Application (ED), Opioid Safety (ED), Walking Boot (ED) Referrals: Manuel Obrien MD [Physician] - 1 week (Follow-up for repeat evaluation. You may discontinue use of the boot before seeing orthopedics if your pain is significantly improved.) PARRIS GOETZ [Primary Care Provider] - 1 week Documented by User: Augustine Mack MD 04/27/24 23:11 HPI HPI - Extremity Injury (Lower) General Chief Complaint: Extremity Injury, Lower Stated Complaint: swollen legs, concerned blood clot Time Seen by Provider: 04/27/24 20:34 Related Data Home Medications ?Medication ?Instructions ?Recorded ?Confirmed atorvastatin 80 mg tablet 80 mg PO DAILY 03/18/23 07/28/23 baclofen 5 mg tablet 5 mg PO TID PRN back spasm or pain 03/18/23 05/31/23 clonazepam 0.5 mg tablet 0.5 mg PO TID PRN anxiety 03/18/23 05/31/23 isosorbide mononitrate 30 mg 30 mg PO DAILY 03/18/23 07/28/23 tablet,extended release 24 hr levothyroxine 75 mcg tablet 75 mcg PO DAILY 03/18/23 07/28/23 nitroglycerin 0.4 mg sublingual 0.4 mg sublingual Q5M PRN chest 03/18/23 07/28/23 tablet pain omeprazole 40 mg capsule,delayed 40 mg PO DAILY 03/18/23 07/28/23 release potassium chloride 20 mEq 20 meq PO DAILY 03/18/23 07/28/23 tablet,extended release(part/cryst) ropinirole 2 mg tablet 2 mg PO TID 03/18/23 07/28/23 trazodone 50 mg tablet 50 mg PO QPM 03/18/23 07/28/23 warfarin 5 mg tablet 5 mg PO DAILY 03/18/23 07/28/23 albuterol sulfate 90 mcg/actuation 1 puff inhalation Q6H PRN SOB 05/07/23 07/28/23 aerosol inhaler ciwzfoidjl-lnbsnmkhuxzml-cfxhwytk 1 cap PO Q4H PRN headache 05/07/23 07/28/23 50 mg-300 mg-40 mg capsule (Fioricet) metoprolol succinate 100 mg 100 mg PO DAILY 05/07/23 07/28/23 tablet,extended release 24 hr hydroxyzine HCl 10 mg tablet mg 04/27/24 olanzapine 2.5 mg tablet mg 04/27/24 sertraline 50 mg tablet mg 04/27/24 Previous Rx's ?Medication ?Instructions ?Recorded fluoxetine 20 mg capsule 40 mg (2 x 20 mg) PO DAILY #0 caps 05/08/23 furosemide 40 mg tablet (Lasix) 40 mg PO BID #60 tabs 05/08/23 amiodarone 200 mg tablet (Pacerone) 200 mg PO QD #30 tabs 05/20/23 methocarbamol 500 mg tablet 500 mg PO Q8H PRN muscle pain #10 05/31/23 tabs cephalexin 500 mg capsule 500 mg PO BID 10 days #20 caps 06/04/23 amoxicillin 875 mg-potassium 1 tab PO Q12H #20 tabs 09/05/23 clavulanate 125 mg tablet doxycycline hyclate 100 mg tablet 100 mg PO BID 7 days #14 tabs 09/05/23 oxycodone-acetaminophen 5 mg-325 1 tab PO Q8H PRN pain 3 days #9 04/27/24 mg tablet (Percocet) tabs Allergies Allergy/AdvReac Type Severity Reaction Status Date / Time erythromycin base Allergy Unknown Unknown Verified 04/19/24 04:15 ondansetron [From Zofran] AdvReac tachycardia Verified 02/17/24 22:51 Opioid HPI Opioid Management Most Recent Pain and Opioid Data: Last Pain Scale 7 06/04/23 19:05 PFSH [facility] Medical History (Updated 04/27/24 @ 22:56 by Augustine Mack MD) Lactic acidosis ?E87.20 - Acidosis, unspecified (ICD-10) Fluid overload ?E87.70 - Fluid overload, unspecified (ICD-10) Nausea ?R11.0 - Nausea (ICD-10) Generalized weakness ?R53.1 - Weakness (ICD-10) ANTONINA (generalized anxiety disorder) ?F41.1 - Generalized anxiety disorder (ICD-10) RLS (restless legs syndrome) ?G25.81 - Restless legs syndrome (ICD-10) Hypothyroid ?E03.9 - Hypothyroidism, unspecified (ICD-10) Hyperlipidemia ?E78.5 - Hyperlipidemia, unspecified (ICD-10) CAD (coronary artery disease) ?I25.10 - Atherosclerotic heart disease of [place] coronary artery without angina pectoris (ICD-10) Paroxysmal atrial fibrillation ?I48.0 - Paroxysmal atrial fibrillation (ICD-10) Chronic HFrEF (heart failure with reduced ejection fraction) ?I50.22 - Chronic systolic (congestive) heart failure (ICD-10) Hypertension ?I10 - Essential (primary) hypertension (ICD-10) Rheumatic fever ?I00 - Rheumatic fever without heart involvement (ICD-10) Pacemaker ?Z95.0 - Presence of cardiac pacemaker (ICD-10) Myocardial infarct, old ?I25.2 - Old myocardial infarction (ICD-10) Multifocal pneumonia ?J18.9 - Pneumonia, unspecified organism (ICD-10) CHF (congestive heart failure) ?I50.9 - Heart failure, unspecified (ICD-10) Acute torticollis ?M43.6 - Torticollis (ICD-10) Fracture of head of humerus with routine healing ?S42.293D - Other displaced fracture of upper end of unspecified humerus, subsequent encounter for fracture with routine healing (ICD-10) Closed head injury ?S09.90XA - Unspecified injury of head, initial encounter (ICD-10) Fall from chair ?W07.XXXA - Fall from chair, initial encounter (ICD-10) Surgical History History of hysterectomy ?Z90.710 - Acquired absence of both cervix and uterus (ICD-10) Mitral valve replaced ?Z95.2 - Presence of prosthetic heart valve (ICD-10) Family History Grandmother Family history of CHF (congestive heart failure) Family history of cancer Family history of hypertension Father Family history of COPD (chronic obstructive pulmonary disease) Family history of cancer Family history of diabetes mellitus Family history of hypertension Sister Family history of COPD (chronic obstructive pulmonary disease) Mother Family history of cancer Family history of hypertension Family history of myocardial infarction Family history of stroke Brother Family history of cancer Grandfather Family history of cancer Social History Within the past year, how often did you have a drink containing alcohol: never Score interpretation: A score less than 3 is consistent with normal alcohol consumption. Smoking status: Former smoker Non-prescribed substance use: denies use Exam Constitutional Vital Signs, click to edit/add: Last Vital Signs Temp 98.0 F 04/27/24 20:36 Pulse 80 04/27/24 20:36 Resp 16 04/27/24 20:36 BP 148/81 H 04/27/24 20:36 Pulse Ox 100 04/27/24 20:36 O2 Del Method Room Air 04/27/24 20:36 Course Vital Signs Vital signs: Vital Signs Temperature 98.0 F 04/27/24 20:36 Pulse Rate 80 04/27/24 20:36 Respiratory Rate 16 04/27/24 20:36 Blood Pressure 148/81 H 04/27/24 20:36 Pulse Oximetry 100 04/27/24 20:36 Oxygen Delivery Method Room Air 04/27/24 20:36 Temperature 98.0 F 04/27/24 20:36 Pulse Rate 80 04/27/24 20:36 Respiratory Rate 16 04/27/24 20:36 Blood Pressure 148/81 H 04/27/24 20:36 Pulse Oximetry 100 04/27/24 20:36 Oxygen Delivery Method Room Air 04/27/24 20:36 MDM - Extremity Injury (Lower) MDM Narrative Medical decision making narrative: 2133: Request pain medication, treated with [place]. Labs obtained, ultrasound of the right lower extremity and x-rays of the right foot. Imaging results and x- rays/ultrasound reading are pending and case turned over to attending physician at this time for disposition. Sign-out note: Patient seen and examined. Limb is neurovascular intact. No evidence of infection. She does have some progressing edema and bruising about the ankle and foot. No specific bony tenderness at this time. She reports she does have significant pain with ambulation. X-ray without acute fracture. Duplex negative. Her INR is subtherapeutic. Gave her her INR reading and she will call tomorrow to discuss with her doctor to get a therapeutic. Kevan wrap, walking boot, RICE therapy. Follow-up with her orthopedic doctor. Return precautions were discussed. All questions were answered. The patient was discharged home. Augustine Mack DO, FAAEM SHARED APC VISIT, PHYSICIAN ATTESTATION: [id number] I performed a substantive part of the MDM during the patient?s E/M visit. I personally evaluated and examined the patient. I personally made or approved the documented management plan and acknowledge its risk of complications. ? Imaging Data Imaging: Attestation: I have reviewed the pertinent imaging results. Radiologist's impression: ITS Impressions Foot X-Ray 04/27/24 20:42 IMPRESSION: No acute fracture or traumatic malalignment. Electronically authenticated by: DEVONTE POLK Date: 04/27/2024 22:37 Venous Doppler Study 04/27/24 20:42 IMPRESSION: 1. No acute lower extremity deep venous thrombosis. 2. No superficial venous thrombosis. Electronically authenticated by: Juan Miguel PUCKETT Date: 04/27/2024 21:42 Discharge Plan Discharge Stand Alone Forms: Portal Instructions Chief Complaint: Extremity Injury, Lower Clinical Impression: Ankle sprain Patient Disposition: Home, Self-Care Time of Disposition Decision: 22:52 Condition: Good Mode of Transportation: Private Vehicle Prescriptions / Home Meds: New oxycodone-acetaminophen [Percocet] 5-325 mg tablet 1 tab PO Q8H PRN (Reason: pain) 3 Days Qty: 9 0RF No Action metoprolol succinate 100 mg tablet extended release 24 hr 100 mg PO DAILY albuterol sulfate 90 mcg/actuation HFA aerosol inhaler 1 puff INHALATION Q6H PRN (Reason: SOB) tarkvhdgql-zbmhbsbzycuwj-yjcz [Fioricet] 50-300-40 mg capsule 1 cap PO Q4H PRN (Reason: headache) furosemide [Lasix] 40 mg tablet 40 mg PO BID Qty: 60 0RF fluoxetine 20 mg capsule 40 mg PO DAILY Qty: 0 0RF methocarbamol 500 mg tablet 500 mg PO Q8H PRN (Reason: muscle pain) Qty: 10 0RF cephalexin 500 mg capsule 500 mg PO BID 10 Days Qty: 20 0RF atorvastatin 80 mg tablet 80 mg PO DAILY trazodone 50 mg tablet 50 mg PO QPM isosorbide mononitrate 30 mg tablet extended release 24 hr 30 mg PO DAILY clonazepam 0.5 mg tablet 0.5 mg PO TID PRN (Reason: anxiety) omeprazole 40 mg capsule,delayed release(DR/EC) 40 mg PO DAILY levothyroxine 75 mcg tablet 75 mcg PO DAILY potassium chloride 20 mEq tablet,ER particles/crystals 20 meq PO DAILY ropinirole 2 mg tablet 2 mg PO TID warfarin 5 mg tablet 5 mg PO DAILY Patient Comments: 1.5 M,W,F, 1 tab other days nitroglycerin 0.4 mg tablet, sublingual 0.4 mg sublingual Q5M PRN (Reason: chest pain) baclofen 5 mg tablet 5 mg PO TID PRN (Reason: back spasm or pain) amiodarone [Pacerone] 200 mg Tablet 200 mg PO QD Qty: 30 0RF amoxicillin-pot clavulanate 875-125 mg tablet 1 tab PO Q12H Qty: 20 0RF doxycycline hyclate 100 mg tablet 100 mg PO BID 7 Days Qty: 14 0RF olanzapine 2.5 mg tablet hydroxyzine HCl 10 mg tablet sertraline 50 mg tablet Print Language: Citizen [place] Instructions: Ankle Sprain (ED), How to Use an Elastic Bandage (ED), P.R.I.C.E. Treatment (ED), Ice Pack Application (ED), Opioid Safety (ED), Walking Boot (ED) Referrals: Manuel Obrien MD [Physician] - 1 week (Follow-up for repeat evaluation. You may discontinue use of the boot before seeing orthopedics if your pain is significantly improved.) PARRIS GOETZ [Primary Care Provider] - 1 week
[2024-04-27] MEDS: HYDROCODONE/ACET 5-325 MG TABLET 1 TAB PO (20:58)
[2024-04-27 21:50] LABS: Basophils Absolute Auto 0.2 10^3/uL (0.0-0.1); Basophils Percent Auto 1.1 % (0.2-2.0); Eosinophils Absolute Auto 0.4 10^3/uL (0.0-0.7); Hematocrit 39.1 % (36.0-48.0); Hemoglobin 10.9 g/dL (12.0-16.0); Immature Granulocytes Abs Auto 0.08 10^3/uL (0.00-0.03); Immature Granulocytes Pct Auto 0.5 % (0.0-0.5); Lymphocytes Absolute Auto 1.4 10^3/uL (1.2-3.8); Lymphocytes Percent Auto 9.6 % (20.5-60.0); Mean Corpuscular HGB Conc 27.9 g/dL (29.9-35.2); Mean Corpuscular Hemoglobin 18.7 pg (26.7-34.0); Mean Corpuscular Volume 67.2 fL (81.0-99.0); Mean Platelet Volume 10.6 fL (9.5-13.5); Monocytes Absolute Auto 1.3 10^3/uL (0.3-0.8); Neutrophils Absolute Auto 11.4 10^3/uL (1.4-6.5); Neutrophils Percent Auto 76.8 % (43.0-75.0); Platelet Count 289 10^3/uL (150-450); Red Blood Count 5.82 10^6/uL (4.20-5.40); Red Cell Distribution Width 21.7 % (11.0-15.0); White Blood Count 14.9 10^3/uL (4.0-11.0)
[2024-04-27 22:00] LABS: Anion Gap 11.3; BUN Creatinine Ratio 17.6; Calcium 8.7 mg/dL (8.5-10.1); Chloride 102 mmol/L (98-107); Estimated GFR (African America 51 (>=60); Estimated GFR (Non-African Ame 42 (>=60); Glucose 82 mg/dL (74-106); Potassium 3.3 mmol/L (3.5-5.1); Sodium 140 mmol/L (136-145)
[2024-04-27 22:15] LABS: INR 1.14; Prothrombin Time 11.9 sec (9.0-11.6)
[2024-04-27] MEDS: OXYCODONE HCL/ACETAMINOPHEN 5MG/325MG 1 TAB PO (23:16)
== END 2024-04-27 23:15 | disposition home or self-care (01) ==
PROVIDERS: Physician Assistant; Emergency Provider Student in an Organized Health Care Education/Training Program; PCP Nurse Practitioner Family
DX: S93.401A Sprain of unspecified ligament of right ankle, initial encounter (principal); I25.2 Old myocardial infarction; Z95.810 Presence of automatic (implantable) cardiac defibrillator; Z79.01 Long term (current) use of anticoagulants; M79.671 Pain in right foot; Z90.710 Acquired absence of both cervix and uterus; Z95.2 Presence of prosthetic heart valve; Z87.891 Personal history of nicotine dependence; X50.1XXA Overexertion from prolonged static or awkward postures, initial encounter
CPT/HCPCS: 36415; 73630; 80048; 85025; 85610; 93971; 99285

== ENCOUNTER 2024-05-23 14:53 | Emergency (ER) | payer MEDICARE, MEDICAID, SELFPAY ==
[2024-05-23 14:57] VITALS: BP 138/73; PULSE 90; TEMP 37; O2SAT 98; BMI 29.3
--- NOTE | 2024-05-23 15:08 | ED.GENADUL1 ---
HPI HPI - General Adult General Chief complaint: Headache Stated complaint: HEADACHE Time Seen by Provider: 05/23/24 14:55 Source: patient Mode of arrival: walk-in History of Present Illness HPI narrative: Patient is a 53-year-old female well-known to this emergency department who presents for 3-day history of migraine. She states she has a history of migraines. She takes Egic plus at home for her headaches and states this did not help. She denies any visual changes, fevers, vomiting, peripheral paresthesias, head injury or neck injury. She does have some pain radiation from the head into the sides of the neck and think she may have a tension headache as well. She is not concerned for . She states this headache is consistent with previous. She was seen in this emergency department 1 month ago for the same. Related Data Home Medications ?Medication ?Instructions ?Recorded ?Confirmed atorvastatin 80 mg tablet 80 mg PO DAILY 03/18/23 07/28/23 baclofen 5 mg tablet 5 mg PO TID PRN back spasm or pain 03/18/23 05/31/23 clonazepam 0.5 mg tablet 0.5 mg PO TID PRN anxiety 03/18/23 05/31/23 isosorbide mononitrate 30 mg 30 mg PO DAILY 03/18/23 07/28/23 tablet,extended release 24 hr levothyroxine 75 mcg tablet 75 mcg PO DAILY 03/18/23 07/28/23 nitroglycerin 0.4 mg sublingual 0.4 mg sublingual Q5M PRN chest 03/18/23 07/28/23 tablet pain omeprazole 40 mg capsule,delayed 40 mg PO DAILY 03/18/23 07/28/23 release potassium chloride 20 mEq 20 meq PO DAILY 03/18/23 07/28/23 tablet,extended release(part/cryst) ropinirole 2 mg tablet 2 mg PO TID 03/18/23 07/28/23 trazodone 50 mg tablet 50 mg PO QPM 03/18/23 07/28/23 warfarin 5 mg tablet 5 mg PO DAILY 03/18/23 07/28/23 albuterol sulfate 90 mcg/actuation 1 puff inhalation Q6H PRN SOB 05/07/23 07/28/23 aerosol inhaler [id number]-[id number]-yowpmqpm 1 cap PO Q4H PRN headache 05/07/23 07/28/23 50 mg-300 mg-40 mg capsule (Fioricet) metoprolol succinate 100 mg 100 mg PO DAILY 05/07/23 07/28/23 tablet,extended release 24 hr hydroxyzine HCl 10 mg tablet mg 04/27/24 olanzapine 2.5 mg tablet mg 04/27/24 sertraline 50 mg tablet mg 04/27/24 Previous Rx's ?Medication ?Instructions ?Recorded fluoxetine 20 mg capsule 40 mg (2 x 20 mg) PO DAILY #0 caps 05/08/23 furosemide 40 mg tablet (Lasix) 40 mg PO BID #60 tabs 05/08/23 amiodarone 200 mg tablet (Pacerone) 200 mg PO QD #30 tabs 05/20/23 methocarbamol 500 mg tablet 500 mg PO Q8H PRN muscle pain #10 05/31/23 tabs cephalexin 500 mg capsule 500 mg PO BID 10 days #20 caps 06/04/23 amoxicillin 875 mg-potassium 1 tab PO Q12H #20 tabs 09/05/23 clavulanate 125 mg tablet doxycycline hyclate 100 mg tablet 100 mg PO BID 7 days #14 tabs 09/05/23 oxycodone-acetaminophen 5 mg-325 1 tab PO Q8H PRN pain 3 days #9 04/27/24 mg tablet (Percocet) tabs methocarbamol 750 mg tablet 750 mg PO TID PRN pain #20 tabs 05/23/24 promethazine 25 mg tablet 25 mg PO Q6H PRN nausea and 05/23/24 vomiting #12 tabs Allergies Allergy/AdvReac Type Severity Reaction Status Date / Time erythromycin base Allergy Unknown Unknown Verified 04/19/24 04:15 ondansetron [From Zofran] AdvReac tachycardia Verified 02/17/24 22:51 Opioid HPI Opioid Management Most Recent Opioid Data: Last Pain Scale 8 05/23/24 15:14 Review of Systems ROS Constitutional Denies: fever or chills Eyes Denies: change in vision or blurry vision Ears, nose, mouth, and throat Denies: throat pain or nasal congestion Cardiovascular Denies: chest pain Respiratory Denies: shortness of breath or cough Gastrointestinal Denies: nausea or vomiting Musculoskeletal Denies: back pain or neck pain Integumentary/Breast Denies: rash Neurological Reports: headache; Denies: numbness in extremities or weakness in extremities Hematologic/Lymphatic Reports: easy bruising and easy bleeding [facility] History (Updated 05/23/24 @ 16:19 by SAMREEN Dumont) Lactic acidosis ?E87.20 - Acidosis, unspecified (ICD-10) Fluid overload ?E87.70 - Fluid overload, unspecified (ICD-10) Nausea ?R11.0 - Nausea (ICD-10) Generalized weakness ?R53.1 - Weakness (ICD-10) ANTONINA (generalized anxiety disorder) ?F41.1 - Generalized anxiety disorder (ICD-10) RLS (restless legs syndrome) ?G25.81 - Restless legs syndrome (ICD-10) Hypothyroid ?E03.9 - Hypothyroidism, unspecified (ICD-10) Hyperlipidemia ?E78.5 - Hyperlipidemia, unspecified (ICD-10) CAD (coronary artery disease) ?I25.10 - Atherosclerotic heart disease of in[place] coronary artery without angina pectoris (ICD-10) Paroxysmal atrial fibrillation ?I48.0 - Paroxysmal atrial fibrillation (ICD-10) Chronic HFrEF (heart failure with reduced ejection fraction) ?I50.22 - Chronic systolic (congestive) heart failure (ICD-10) Hypertension ?I10 - Essential (primary) hypertension (ICD-10) Rheumatic fever ?I00 - Rheumatic fever without heart involvement (ICD-10) Pacemaker ?Z95.0 - Presence of cardiac pacemaker (ICD-10) Myocardial infarct, old ?I25.2 - Old myocardial infarction (ICD-10) Multifocal pneumonia ?J18.9 - Pneumonia, unspecified organism (ICD-10) CHF (congestive heart failure) ?I50.9 - Heart failure, unspecified (ICD-10) Acute torticollis ?M43.6 - Torticollis (ICD-10) Fracture of head of humerus with routine healing ?S42.293D - Other displaced fracture of upper end of unspecified humerus, subsequent encounter for fracture with routine healing (ICD-10) Closed head injury ?S09.90XA - Unspecified injury of head, initial encounter (ICD-10) Fall from chair ?W07.XXXA - Fall from chair, initial encounter (ICD-10) Surgical History History of hysterectomy ?Z90.710 - Acquired absence of both cervix and uterus (ICD-10) Mitral valve replaced ?Z95.2 - Presence of prosthetic heart valve (ICD-10) Family History Grandmother Family history of CHF (congestive heart failure) Family history of cancer Family history of hypertension Father Family history of COPD (chronic obstructive pulmonary disease) Family history of cancer Family history of diabetes mellitus Family history of hypertension Sister Family history of COPD (chronic obstructive pulmonary disease) Mother Family history of cancer Family history of hypertension Family history of myocardial infarction Family history of stroke Brother Family history of cancer Grandfather Family history of cancer Social History Within the past year, how often did you have a drink containing alcohol: never Score interpretation: A score less than 3 is consistent with normal alcohol consumption. Smoking status: Former smoker Non-prescribed substance use: denies use Little interest or pleasure in doing things: not at all Feeling down, depressed, or hopeless: not at all Exam Narrative Exam Narrative: Gen.: Awake, alert, in no distress Head: Normocephalic, atraumatic ENT: Moist mucous membranes, no nuchal rigidity, no photophobia Respiratory: No respiratory distress, lungs clear bilaterally Cardio: Regular rate and rhythm Extremities: Moves extremities equally Psych: Normal mood and affect Neuro: No focal neuro deficit Skin: Warm, dry, intact Constitutional Vital Signs, click to edit/add: Last Vital Signs Temp 98.6 F 05/23/24 14:57 Pulse 90 05/23/24 14:57 Resp 18 05/23/24 14:57 BP 138/73 05/23/24 14:57 Pulse Ox 98 05/23/24 14:57 Course Vital Signs Vital signs: Vital Signs Temperature 98.6 F 05/23/24 14:57 Pulse Rate 90 05/23/24 14:57 Respiratory Rate 18 05/23/24 14:57 Blood Pressure 138/73 05/23/24 14:57 Pulse Oximetry 98 05/23/24 14:57 Temperature 98.6 F 05/23/24 14:57 Pulse Rate 90 05/23/24 14:57 Respiratory Rate 18 05/23/24 14:57 Blood Pressure 138/73 05/23/24 14:57 Pulse Oximetry 98 05/23/24 14:57 Medical Decision Making [facility] Narrative Medical decision making narrative: Patient with a benign exam, stable vital signs. She requests IV placement, she was given IV Reglan, Benadryl, Robaxin, Decadron. She is requesting discharge, she had ice chips and oral fluids in the ER with no difficulty. She is discharged home with Robaxin and Phenergan. Return to the ER if symptoms change or worsen SUPERVISED APC VISIT, PHYSICIAN ATTESTATION: Based on the medical record the care appears appropriate. ? Medical Records Medical records reviewed: Yes I reviewed the patient's medical records Discharge Plan Discharge Chief Complaint: Headache Clinical Impression: Headache Patient Disposition: Home, Self-Care Time of Disposition Decision: 16:19 Condition: Good Prescriptions / Home Meds: New methocarbamol 750 mg tablet 750 mg PO TID PRN (Reason: pain) Qty: 20 0RF promethazine 25 mg tablet 25 mg PO Q6H PRN (Reason: nausea and vomiting) Qty: 12 0RF No Action metoprolol succinate 100 mg tablet extended release 24 hr 100 mg PO DAILY albuterol sulfate 90 mcg/actuation HFA aerosol inhaler 1 puff INHALATION Q6H PRN (Reason: SOB) [id number]-fptjfjgqdevbz-bnoc [Fioricet] 50-300-40 mg capsule 1 cap PO Q4H PRN (Reason: headache) furosemide [Lasix] 40 mg tablet 40 mg PO BID Qty: 60 0RF fluoxetine 20 mg capsule 40 mg PO DAILY Qty: 0 0RF methocarbamol 500 mg tablet 500 mg PO Q8H PRN (Reason: muscle pain) Qty: 10 0RF cephalexin 500 mg capsule 500 mg PO BID 10 Days Qty: 20 0RF atorvastatin 80 mg tablet 80 mg PO DAILY trazodone 50 mg tablet 50 mg PO QPM isosorbide mononitrate 30 mg tablet extended release 24 hr 30 mg PO DAILY clonazepam 0.5 mg tablet 0.5 mg PO TID PRN (Reason: anxiety) omeprazole 40 mg capsule,delayed release(DR/EC) 40 mg PO DAILY levothyroxine 75 mcg tablet 75 mcg PO DAILY potassium chloride 20 mEq tablet,ER particles/crystals 20 meq PO DAILY ropinirole 2 mg tablet 2 mg PO TID warfarin 5 mg tablet 5 mg PO DAILY Patient Comments: 1.5 M,W,F, 1 tab other days nitroglycerin 0.4 mg tablet, sublingual 0.4 mg sublingual Q5M PRN (Reason: chest pain) baclofen 5 mg tablet 5 mg PO TID PRN (Reason: back spasm or pain) amiodarone [Pacerone] 200 mg Tablet 200 mg PO QD Qty: 30 0RF amoxicillin-pot clavulanate 875-125 mg tablet 1 tab PO Q12H Qty: 20 0RF doxycycline hyclate 100 mg tablet 100 mg PO BID 7 Days Qty: 14 0RF olanzapine 2.5 mg tablet hydroxyzine HCl 10 mg tablet sertraline 50 mg tablet oxycodone-acetaminophen [Percocet] 5-325 mg tablet 1 tab PO Q8H PRN (Reason: pain) 3 Days Qty: 9 0RF Print Language: Portuguese Instructions: Acute Headache (ED) Referrals: PARRIS GOETZ [Primary Care Provider] - 1 week
[2024-05-23] MEDS: DEXAMETHASONE SOD PHOS 10 MG/ML VIAL IV (15:48)
[2024-05-23] MEDS: METHOCARBAMOL 1,000 MG/10 ML VIAL 1000 MG IV (15:48)
[2024-05-23] MEDS: METOCLOPRAMIDE HCL 10 MG/2 ML VIAL IVP (15:49)
[2024-05-23] MEDS: DIPHENHYDRAMINE HCL 50 MG/ML VIAL 25 MG IV (15:49)
[2024-05-23] MEDS: 0.9 % SODIUM CHLORIDE 1,000 ML 999 ML IV (15:53)
[2024-05-23 16:45] VITALS: BP 126/80; PULSE 81; O2SAT 97
== END 2024-05-23 16:45 | disposition home or self-care (01) ==
PROVIDERS: Emergency Provider Emergency Medicine; PCP Nurse Practitioner Family
DX: R51.9 Headache, unspecified (principal); Z87.891 Personal history of nicotine dependence
CPT/HCPCS: 96374; 96375; 99284; J1100; J1200; J2765; J2800

== ENCOUNTER 2024-05-26 19:55 | Observation (INO) | payer MEDICARE, MEDICAID, SELFPAY ==
[2024-05-26 19:58] VITALS: BP 153/69; PULSE 85; TEMP 36.8; BMI 28.9
--- OUTSIDE RECORDS SUMMARY | 2024-05-26 20:12 | XMS_ITS | CCD ---
Author Organization [facility] Care Team Providers Care Ward Helper Name Role Phone MAYRA, MARGARETH Admitting Unavailable [...] Primary Care Unavailable Darian Smiley Attending Provider [phone] Robe Alonso Primary Care Provider Robe Alonso Admit Provider Robe Alonso Attending Provider [phone] Darian Smiley Attending Provider Robe Alonso Primary Care Provider [phone] Robe Alonso Admit Provider Robe Alonso Attending Provider [phone] Unavailable Unavailable PROVIDER, UNKNOWN Attending Unavailable PROVIDER, UNKNOWN Admitting Unavailable PATIENT, SELF Referring Unavailable None, No PCP Unavailable Unavailable Robe Alonso Primary Care Provider Nadir Hoskins Unavailable Margareth Nunez Unavailable Violeta Chan MD Unavailable Dustin CLYA, Violeta Unavailable Jeane Dykes Unavailable DO Darian Smiley Attending Provider MD Robe Alonso Primary Care Provider MD Robe Alonso Attending Provider MD Robe Alonso Referring Provider DO Hira Lay Emergency [facility] MD Ken Segovia Admit Provider MD Ken Rizo Attending Provider [phone] Robe Alonso Primary Care Provider Nadir Hoskins Unavailable Margareth Nunez Unavailable Violeta Chan MD Unavailable Dustin CLAY, Violeta Unavailable DO Darian Smiley Attending Provider Shaikh Rojas Unavailable Robe Alonso Primary Care Provider Nadir Hoskins Unavailable Margareth Nunez MD Unavailable Robe Alonso Primary Care Provider Nadir Hoskins Unavailable Mayra CLAY, Margareth Bullard Unavailable Dustin CLAY Violeta Unavailable [phone] Dustin CLAY, Violeta Unavailable Cuevas DMD, Anju Unavailable SHAIKH Shawna ROJAS Admitting Unavailable SHAIKH Shawna ROJAS Attending Unavailable SHAIKH Shawna ROJAS Primary Care Unavailable SHAIKH Shawna ROJAS Primary Care Unavailable FAWWAD, ROY H Attending [...] Attending Unavailable KATHARINA Mcneil, KRYSTYNA Admitting Unavailable NEWATIA, FAUSTO Consulting Unavailable KATHARINA Mcneil, KRYSTYNA Consulting Unavailable SHAIKH Shawna ROJAS Primary Care Unavailable JEAN CLAUDE GUZMAN Attending Unavailable SHELLY, DR JC Car Consulting Unavailable JEAN CLAUDE GUZMAN Admitting Unavailable JEAN CLAUDE GUZMAN Consulting Unavailable Tenzin Alejo Consulting Unavailable CORIE, DR Juan Miguel Gamez Consulting Unavailable WINNSBORO, DR Juan Miguel Gamez Attending Unavailable [place], DR Juan Miguel Gamez Admitting Unavailable SHAIKH ROJAS H Primary Care Unavailable SHELLY, DR JC Car Consulting Unavailable Nadir Hoskins DO Unavailable Dustin CLAY, Violeta Unavailable [phone] Dustin CLAY, Violeta Unavailable Amanda Grace Unavailable MD Margareth Nunez Attending Provider PETE Grace Primary Care Provider Crystal CLAY, Primary Care Provider [phone] Bianca FUTURES TRADER-PATENT ENGINEER, Jameel E Unavailable Mayra CLAY, Margareth Bullard Unavailable Liam Hyman MD Primary Care Provider [phone] Mayra Chang, Margareth Referring Unavailable Mayra Chang, Margareth Attending Unavailable NILL, Arjun R Attending Unavailable NILL, Arjun R Attending Unavailable NILL, Arjun Car Attending Unavailable Unavailable Primary Care Provider UnavailLiam [...] Care Provider DO Pedro Melo Emergency Provider PETE Grace Primary Care Provider MD Kendrick Jorgensen Admit Provider MD Kendrick Jorgensen Attending Provider [phone] MD Patrica Mcmahon Attending Provider Karen Garner Primary Care Unavailable Tanner [...] Vazquez Consulting Unavailable Arely Burris Consulting Unavailable JAMEEL VALENZUELA Attending Unavaila ble SHAIKH ROJAS Primary Care Unavailable JAMEEL VALENZUELA Attending Unavaila LIAM Torre Primary Care Unavailable YESSI MILLER Referring Unavailable HYMAN LIAM Jose Primary Care Unavailable JAMEEL VALENZUELA Referring Unavaila LIAM Torre Primary Care Unavailable MARGARETH NUNEZ Referring Unavailable SHAIKH ROJAS Primary Care Unavailable MARGARETH NUNEZ Admitting Unavailable MARGARETH NUNEZ Attending Unavailable SHAIKH ROJAS Primary Care Unavailable Unavailable Unavailable Unavailable Allergies Allergy Classification Reported Allergen(s) Allergy Type Date of Onset Reaction(s) Facility Adhesive Tape (1 source) Adhesive Tape Substance Allergy 11-24-19 21 Unknown Reaction [facility] Ondansetron (1 source) Ondansetron Drug Allergy 11-24-19 21 Agitated [facility] Opioid Agonists (2 sources) fentaNYL Drug Allergy 11-24-19 21 Palpitations, Unknown Reaction [facility] (20 sources) Adhesive Tape; Translations: [adhesive tape] Propensity to adverse reactions 08-16-20 20 Unknown Reaction, Redness of Skin [facility] (20 sources) fentaNYL; Translations: [fentanyl] Drug Allergy 09-21-19 20 Headache, Other [facility] (20 sources) Morphine; Translations: [morphine] Drug Allergy 04-26-20 12 Vomiting, GI intolerance, Nausea/vomiting , Nausea And Vomiting [facility] (19 sources) Ondansetron; Translations: [ONDANSETRON] Drug Allergy 09-21-19 20 Agitated [facility] Repository (20 sources) erythromycin base; Translations: [Erythromycin Base] Allergy to substance 07-08-20 04 Other: See Comments [facility] (20 sources) Erythromycin; Translations: [erythromycin] Drug Allergy 06-05-20 02 Nausea Only, Unknown, [facility]iting [facility] (20 sources) levoFLOXacin; Translations: [Levaquin] Drug Allergy 08-31-19 24 Other, Palpitations [facility] [address] DO Work Phone: (20 sources) Ondansetron; Translations: [Zofran] Drug Allergy Irritability [facility] Repository (20 sources) varenicline; Translations: [Chantix TABS] Drug Allergy 08-31-19 Other, Unknown [facility] [address] DO Work Phone: (20 sources) Adhesive Tape Propensity to adverse reactions to substance 07-08-20 12 Rash [facility] (20 sources) Ondansetron Drug Allergy 10-13-19 19 Intolerance, Other [facility] (20 sources) Latex; Translations: [LATEX] Drug allergy 11-11-19 24 Unknown, Hives [facility] (5 sources) Adhesive Tape-Silicones; Translations: [ADHESIVE TAPE-SILICONES] Drug Allergy 08-31-19 24 Other [facility] (3 sources) Azithromycin Drug Allergy 10-05-19 24 [facility] (1 source) Latex Drug allergy (disorder) 03-29-20 24 [facility] Repository (2 sources) levoFLOXacin; Translations: [LEVOFLOXACIN] Drug Allergy 08-31-19 24 [facility] Repository (2 sources) Ondansetron; Translations: [ONDANSETRON HCL] Drug Allergy 08-31-19 24 [facility] Repository (2 sources) varenicline; Translations: [VARENICLINE] Drug Allergy 08-31-19 [facility] Repository Medications Current Medications Medication Drug [...] 1 capsule by mouth every four hours Axquyzmilk-Vofvbpqxtyloh-Wxek (Fioricet) 50-300-40 mg capsule Active 1 CAP PO Every 4 hours February 17, 2024 12:15pm Start: 10-07-2023 End: 10-07-2023 take 1 tablet by mouth every four hours as needed for headache getnjcbate-bmkybgdzthzok-dcipxsbu (CHIDI CET, ESGIC) 50-325-40 MG per tablet [...] take 1 capsule by mouth twice daily Semshvekuc-Kitewibxzfbcm-Ogim (Fioricet) 50-300-40 mg capsule Discontinued 1 CAP PO Twice daily July 19, 2020 1:00am February 17, 2024 12:19pm Start: 06-07-2020 End: 06-15-2020 take 1 tablet by mouth every eight hours Nwjlyivnmb-Tlxsnqxxpixrl-Ezzb Discontinu ed 1 TAB PO Q8H June 07, 2020 12:00am June 15, 2020 11:49am Start: 04-26-2020 End: 06-07-2020 take 1 capsule by mouth every eight hours as needed Yjtajoiunx-Jkzlqbbkkowne-Fhpc (Fioricet) 50-300-40 mg capsule Discontinued 1 CAP PO Q8H April 26, 2020 12:00am June 07, 2020 6:06pm TK ONE C PO Q 8 H PRN Start: 09-01-2019 End: 04-26-2020 take 1 tablet by mouth three times daily Vcbwcjeaij-Cockvsnidzkbo-Hbgk Discontinu ed 1 TAB PO Three times daily 0 September 01, 2019 1:00am April 26, 2020 2:48pm [id number] 200 actuat albuterol 0.09 mg/actuat metered dose [...] 2021 1:48pm take 4 tablets by mo ut once daily amiodarone (PACERONE) 100 MG tablet [...] after dose. take 1 tablet by augusto once daily in the morning Levothyroxine Sodium [...] Magnesium Replacement, Starting on Wed10/06/23 at 0008 Mag Lab Replacement Action 1.4-1.6 mg/dL 2,000 [...] Start: 10-12-2023 take 1 tablet by augusto once daily potassium chloride (KLOR-CON M) 20 [...] 0 Active take 1 capsule by mo [facility] every twelve hours Potassium Chloride ER [...] 2020 3:22pm take 3 tablets by mo [facility] once daily rOPINIRole (REQUIP) 0.25 MG [...] on above: Take 2 tablets by mo [facility] once daily. traZODone hydrochloride 50 mg oral tablet (20 sources) Serotonin Reuptake Inhibitor Start: End: take 50 mg by mouth once [...] mg tab let Discontinued 7.5 MG PO CANDISUTHSA November 13, 2021 12:00am February 17, 2024 [...] 5 MG Oral Tablet as directed per [facility] Coumadin clinic Quantity: 0 Refills: 0 Ordered: 31-Dec-2021 DO Active Warfarin 2mg 2 m g as directed orally Active Warfarin Sodium 5 MG Oral Tablet as directed per [facility] Coumadin clinic Quantity: 0 Refills: 0 Ordered: 20-Oct-2021 DO Active Comment on above: Take 1 tablet by [facility] once daily. warfarin placeholder: dosing by pharmacy [...] 1 tablet by mouth once daily Hydrocodone-Acetaminophen (Sycamore) 5-325 mg Tablet Discontinued 1 TAB PO [...] 2024 12:19pm take 1 tablet by augusto twice daily as needed cyclobenzaprine (FLEXERIL) 10 [...] Discontinued 100 MG PO Twice daily 14 7 January 24, 2024 12:00am February 17, 2024 12:19pm 0.6 ml enoxaparin sodium 100 mg/ml prefilled syringe (20 sources) Low Molecular Weight Heparin Start: 01-24-2024 End: 02-17-2024 Enoxaparin (Lovenox) 60 mg/0.6 mL syringe Discontinued 60 MG SUBCUT Every 12 hours 6 5 January 24, 2024 12:00am February 17, 2024 [...] Discontinued Start: 07-13-20[address] 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 Onset: 9 Episodic Other aftercare (19 sources) Drug therapy finding; Translations: [Long-term (current) use of other medications] Episodic Other aftercare (17 sources) Encounter for therapeutic drug level monitoring; Translations: [Medication monitoring encounter Z51.81] Onset: 1 Resolved: 2 Episodic Other aftercare (1 source) prison (current) use of anticoagulants; 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] Onset: 3 Episodic Other aftercare (3 sources) Other [facility] (current) drug therapy; Translations: [OTH [facility] CURRENT DRUG THERAPY] Onset: 2 Episodic Other aftercare (11 sources) Anticoagulant effect; Translations: [coding tech (current) use of anticoagulants] 11-11-2023 Episodic Other [...] 32.0-32.9, adult Onset: 9 Unclassified (1 source) coding tech (current) use of anticoagulants Onset: 8 Unclassified (1 source) Other nonrheumatic aortic valve disorders Onset: 8 Unclassified (1 source) Athscl heart disease of [place]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 ang pctrs Onset: 9 Unclassified (1 source) Unspecified convulsions Onset: 9 Unclassified (1 source) prison (current) use of antithrombotics/antipl atelets Onset: 8 [...] atrial fibrillation] Onset: 4 Unclassified (1 source) Ventricular tachycardia, unspecified; Translations: [Ventricular tachycardia, unspecified] Onset: 4 Unclassified (1 source) Encounter for adjustment and management of automatic implantable cardiac defibrillator; Translations: [Encounter for adjustment and management of automatic implantable cardiac defibrillator] Onset: 3 Unclassified (1 source) Other supraventricular tachycardia (CMS-HCC); Translations: [Other supraventricular tachycardia (CMS-HCC)] Onset: 4 Unclassified (1 source) Ventricular tachycardia, unspecified (Multi); Translations: [Ventricular tachycardia, unspecified (Multi)] Onset: 4 Unclassified (1 source) Other supraventricular tachycardia; Translations: [Other supraventricular tachycardia] Onset: 4 Unclassified (1 source) Ventricular tachycardia, unspecified (CMS/HCC); Translations: [Ventricular tachycardia, unspecified (CMS/HCC)] Onset: Past or Other Problems Problem Classification Problem [...] pain, unspecified] Onset: 01-24-2024 11-12-2021 Episodic Other circulatory disease (1 source) Hypotension, unspecified; Translations: [Hypotension, unspecified] Episodic Other hematologic conditions (3 sources) Other specified abnormalities of plasma proteins; Translations: [Other abnormal blood chemistry] Episodic Unclassified (1 source) LOW BACK PAIN, UNSPECIFIED; Translations: [LOW BACK PAIN, UNSPECIFIED] Onset: 10-26-2022 Unclassified (1 source) Other supraventricular tachycardia (CMS-HCC); Translations: [Other supraventricular tachycardia (CMS-HCC)] Onset: 05-11-2024 Unclassified (1 source) Ventricular tachycardia, unspecified (Multi); Translations: [Ventricular tachycardia, unspecified (Multi)] Onset: 05-11-2024 Unclassified (1 source) Other supraventricular tachycardia; Translations: [Other supraventricular tachycardia] Onset: 09-02-2023 Unclassified (1 source) Ventricular tachycardia, unspecified (CMS/HCC); Translations: [Ventricular tachycardia, unspecified (CMS/HCC)] Onset: 09-02-2023 Results Test Name Value Interpretation Reference Range Facility Acanthocytes [Presence] in B lood by Light microscopyOrdered By: Kristyn Russell on 03-30-2024 Acanthocytes LM Ql (Bld) [facility] Activated partial thrombopla stin time (aPTT) in platelet poor plasma by coagulation aOrdered By: Pedro Melo on 03-30-2024 aPTT Coag (PPP) [Time] 25.3 s 25.1-36.5 [facility] Comment on above: A hematocrit value g reater than 55% may lead to inaccurate results in coagulation testing. Patients having hematocrit values >55% require a special collection tube for coagulation studies. Please contact the laboratory at [phone] for redraw instructions. Amphetamine Screen Ql (U)Ord ered By: Pedro Melo on 03-30-2024 Amphetamines Ql (U) Negative Negative [facility] Anisocytosis [Presence] in B lood by Light microscopyOrdered By: Kristyn Russell on 03-30-2024 Anisocytosis Ql (Bld) Marked Normal [facility] Comment on above: Performed By: #### C K, BNP, HS TROP, PTT, PT #### [address] Anisocytosis [Presence] in B lood by Light microscopyOrdered By: Pedro Melo on 03-30-2024 Anisocytosis Ql (Bld) Marked Normal [facility] Comment on above: Performed By: #### C K, BNP, HS TROP, PTT, PT #### [address] Automated basophil %Ordered By: Kristyn Russell on 03-30-2024 Basophils/100 WBC (Bld) 1.5 % Normal . [facility] Comment on above: Performed By: #### C K, BNP, HS TROP, PTT, PT #### [address] Automated basophil countOrde red By: Kristyn Russell on 03-30-2024 Basophils (Bld) [#/Vol] 0.2 10*3/uL Normal 0.0-0.2 [facility] Comment on above: Performed By: #### C K, BNP, HS TROP, PTT, PT #### [place] [address] [place] Automated blood monocyte cou ntOrdered By: Kristyn Russell on 03-30-2024 Monocytes (Bld) [#/Vol] 1.0 10*3/uL High 0.0-0.8 [facility] Comment on above: Performed By: #### C K, BNP, HS TROP, PTT, PT #### [address] Automated eosinophil %Ordere d By: Kristyn Russell on 03-30-2024 Eosinophils/100 WBC (Bld) 0.6 % Normal . [facility] Comment on above: Performed By: #### C K, BNP, HS TROP, PTT, PT #### [address] Automated eosinophil countOr dered By: Kristyn Russell on 03-30-2024 Eosinophils (Bld) [#/Vol] 0.1 10*3/uL Normal 0.0-0.45 [facility] Comment on above: Performed By: #### C K, BNP, HS TROP, PTT, PT #### [address] Automated monocyte %Ordered By: Kristyn Russell on 03-30-2024 Monocytes/100 WBC (Bld) 8.7 % Normal . [facility] Comment on above: Performed By: #### C K, BNP, HS TROP, PTT, PT #### [address] Automated neutrophil %Ordere d By: Kristyn Russell on 03-30-2024 Neutrophils/100 WBC (Bld) 74.8 % Normal . [facility] Comment on above: Performed By: #### C K, BNP, HS TROP, PTT, PT #### [address] BNP ser/plasOrdered By: Isai Melo on 03-30-2024 Natriuretic peptide B (Bld) [Mass/Vol] 256.0 pg/mL High 5-100 [facility] Comment on above: Result Comment: PERF ORMED BY: [place] [address] PATHOLOGIST ENERGY CONSERVATION ENGINEER LILIANA CLAY M.D. Performed By: #### C K, BNP, HS TROP, PTT, PT #### [address] Bacteria [Presence] in Urine by AutomatedOrdered By: Pedro Melo on 03-30-2024 Bacteria Auto Ql (U) 2+ [HPF] High None Seen [facility] Barbiturates [Presence] in U rine by Screen methodOrdered By: Pedro Melo on 03-30-2024 Barbiturates Screen Ql (U) Positive High Negative [facility] Basic Metabolic Panelon Creatinine Clr Calc Pharmacy 62.62 Normal [facility] Comment on above: Performed By: #### M G, TSH3, FE and TIBC, LIPID, SCAN CBC, NEHAL, BMP #### [place] [address] [place] GFR/1.73 sq M.predicted MDRD (S/P/Bld) [Vol rate/Area] mL/min/{1.73_m2} Normal [facility] Comment on above: Performed By: #### M G, TSH3, FE and TIBC, LIPID, SCAN CBC, NEHAL, BMP #### [place] [address] [place] Creatinine Clr Calc Pharmacy 58.60 Normal [facility] Comment on above: Result Comment: PERF ORMED BY: [place] [address] PATHOLOGIST ENERGY CONSERVATION ENGINEER LILIANA CLAY M.D. Performed By: #### C K, BNP, HS TROP, PTT, PT #### [place] [address] [place] GFR/1.73 sq M.predicted MDRD (S/P/Bld) [Vol rate/Area] mL/min/{1.73_m2} Normal [facility] Comment on above: Performed By: #### C K, BNP, HS TROP, PTT, PT #### [place] [address] [place] Basophils Auto (Bld) [#/Vol] Ordered By: Pedro Melo on 03-30-2024 Basophils (Bld) [#/Vol] N/A [facility] Basophils/100 WBC Auto (Bld) Ordered By: Pedro Melo on 03-30-2024 Basophils/100 WBC (Bld) N/A [facility] Basophils/100 leukocytes in Blood by Manual countOrdered By: Pedro Melo on 03-30-2024 Basophils/100 WBC (Bld) 2 % Normal 0-2 [facility] Comment on above: Performed By: #### C K, BNP, HS TROP, PTT, PT #### [facility] [address] [place] [address] [place] Benzodiazepines Screen Ql (U )Ordered By: Pedro Melo on 03-30-2024 Benzodiazepines Ql (U) Negative Negative [facility] Benzoylecgonine [Presence] i n Urine by Screen methodOrdered By: Pedro Melo on 03-30-2024 Benzoylecgonine Screen Ql (U) Negative Negative [facility] Bilirubin Test strip Ql (U)O rdered By: Pedro Melo on 03-30-2024 Bilirubin Ql (U) Negative Negative [facility] [place] cells [Presence] in Blo od by Light microscopyOrdered By: Kristyn Russell on 03-30-2024 Jonah cells LM Ql (Bld) Slight [facility] CT head/brain wo conon 03-30 CT head/brain wo con [facility] Main [place] [address] [place] [address] CT Scan Report Signed Patient: Essence Vincent MR#: [id number] : 1970 Acct:[id number] Age/Sex: 53 / F ADM Date: 03/30/24 Loc: Room: [address] [place] [address] Type: ADM INOo Attending Dr: Patrica Mcmahon [...] Bliss Jr., D.OTarun03/30/2024 3:32 PM Dictation Location: [place] [address] Transcribed By: [facility] 03/30/24 1532 Dictated By: Sy Bliss Jr, DO 03/30/24 1531 Signed By: 03/30/24 1532 Normal [facility] Calcium [Mass/volume] in Ser um or PlasmaOrdered By: Kristyn Russell on 03-30-2024 Calcium [Mass/Vol] 8.8 mg/dL Normal 8.6-10.3 [facility] Comment on above: Performed By: #### M G, TSH3, FE and TIBC, LIPID, SCAN CBC, NEHAL, BMP #### [facility] [address] Calcium [Mass/volume] in Ser um or PlasmaOrdered By: Pedro Melo on 03-30-2024 Calcium [Mass/Vol] 8.8 mg/dL Normal 8.6-10.3 [facility] Comment on above: Performed By: #### C K, BNP, HS TROP, PTT, PT #### [facility] [address] [place] [address] [place] Cannabinoids [Presence] in U rine by Screen methodOrdered By: Pedro Melo on 03-30-2024 Cannabinoids Screen Ql (U) Positive High Negative [facility] Comment on above: These are unconfirme d results and should not be used for legal purposes. Drug Cut-Off Concentration: AMPH 1000 ng/mL ALESSANDRO 200 ng/mL RHINA 200 ng/mL COCM 300 ng/mL OP 300 ng/mL PCP 25 ng/mL THC 20 ng/mL Carbon dioxide, total [Moles /volume] in Serum or PlasmaOrdered By: Kristyn Russell on 03-30-2024 CO2 [Moles/Vol] 24.4 mmol/L Normal 21.0-31.0 [facility] Comment on above: Performed By: #### M G, TSH3, FE and TIBC, LIPID, SCAN CBC, NEHAL, BMP #### [facility] [address] [place] [address] [place] Carbon dioxide, total [Moles /volume] in Serum or PlasmaOrdered By: Pedro Melo on 03-30-2024 CO2 [Moles/Vol] 24.9 mmol/L Normal 21.0-31.0 [facility] Comment on above: Performed By: #### C K, BNP, HS TROP, PTT, PT #### [facility] [address] [place] [address] [place] Chloride [Moles/volume] in S daisy or PlasmaOrdered By: Kristyn Russell on 03-30-2024 Chloride [Moles/Vol] 103 mmol/L Normal 98-107 [facility] Comment on above: Performed By: #### M G, TSH3, FE and TIBC, LIPID, SCAN CBC, NEHAL, BMP #### [facility] [address] [place] [address] [place] Chloride [Moles/volume] in S daisy or PlasmaOrdered By: Pedro Melo on 03-30-2024 Chloride [Moles/Vol] 103 mmol/L Normal 98-107 [facility] Comment on above: Performed By: #### C K, BNP, HS TROP, PTT, PT #### [facility] [address] [place] [address] [place] Cholesterol [Mass/volume] in Serum or PlasmaOrdered By: Kristyn Russell on 03-30-2024 Cholesterol [Mass/Vol] 89 mg/dL Low 140-200 [facility] Comment on above: Chol less than 200 m g/dl low riskChol 201-239 mg/dl borderline riskChol 240 mg/dl and greater high risk Result Comment: Chol less than 200 mg/dl low risk Chol 201-239 mg/dl borderline risk Chol 240 mg/dl and greater high risk Performed By: #### C K, BNP, HS TROP, PTT, PT #### [facility] [address] [place] [address] [place] Cholesterol in LDL Calc [Mas s/Vol]Ordered By: Kristyn Russell on 03-30-2024 Cholesterol in LDL [Mass/Vol] 38 mg/dL 0-100 [facility] Comment on above: LDL ATP III CLASSIFI CATIONLDL less than 100 mg/dL OptimalLDL 100-129 mg/dL Near or above optimalLDL 130-159 mg/dL Borderline highLDL 160-189 mg/dL HighLDL greater than 189 mg/dL Very high Cholesterol in VLDL Calc [Ma ss/Vol]Ordered By: Kristyn Russell on 03-30-2024 Cholesterol in VLDL [Mass/Vol] 11 mg/dL [facility] Color of Urine by AutoOrdere d By: Pedro Melo on 03-30-2024 Color (U) Light-yellow Normal Yellow [facility] Comment on above: Order Comment: Name Collection Type:: Clean-Voided Midstream Performed By: #### C K, BNP, HS TROP, PTT, PT #### [facility] [address] [place] [address] [place] Creatine kinase [Enzymatic a ctivity/volume] in Serum or PlasmaOrdered By: Pedro Melo on 03-30-2024 CK [Catalytic activity/Vol] 93 U/L Normal 30-223 [facility] Comment on above: Performed By: #### C K, BNP, HS TROP, PTT, PT #### [facility] [address] [place] [address] [place] Creatinine [Mass/volume] in Serum or PlasmaOrdered By: Kristyn Russell on 03-30-2024 Creatinine [Mass/Vol] 0.99 mg/dL Normal 0.60-1.20 [facility] Comment on above: Performed By: #### M G, TSH3, FE and TIBC, LIPID, SCAN CBC, NEHAL, BMP #### [facility] [address] [place] [address] [place] Creatinine [Mass/volume] in Serum or PlasmaOrdered By: Pedro Melo on 03-30-2024 Creatinine [Mass/Vol] 1.06 mg/dL Normal 0.60-1.20 [facility] Comment on above: Performed By: #### C K, BNP, HS TROP, PTT, PT #### [address] Diff and CBCon 03-30-2024 Giant Platelet Tally 5 /100{WBC} Normal [facility] Comment on above: Performed By: #### C K, BNP, HS TROP, PTT, PT #### [address] Hypochromasia Marked Normal [facility] Comment on above: Performed By: #### C K, BNP, HS TROP, PTT, PT #### [address] Mean Corpuscular HGB Conc 29.8 g/dL Low 32.0-35.0 [facility] Comment on above: Performed By: #### C K, BNP, HS TROP, PTT, PT #### [address] Microcytosis Marked Normal [facility] Comment on above: Performed By: #### C K, BNP, HS TROP, PTT, PT #### [address] Monocytes/100 WBC (Bld) 16.64 % Normal 0.00-20.00 [facility] Comment on above: Performed By: #### C K, BNP, HS TROP, PTT, PT #### [address] Myelocytes 1 % High 0-0 [facility] Comment on above: Performed By: #### C K, BNP, HS TROP, PTT, PT #### [address] Ovalocytes Slight Normal [facility] Comment on above: Performed By: #### C K, BNP, HS TROP, PTT, PT #### [address] Platelet Estimate Normal Normal Normal [facility] Comment on above: Performed By: #### C K, BNP, HS TROP, PTT, PT #### [address] Platelet Morphology Normal Normal Normal [facility] Comment on above: Result Comment: PERF ORMED BY: [place] [address] PATHOLOGIST ENERGY CONSERVATION ENGINEER LILIANA CLAY M.D. Performed By: #### C K, BNP, HS TROP, PTT, PT #### [address] Poikilocytosis Moderate Normal [facility] Comment on above: Performed By: #### C K, BNP, HS TROP, PTT, PT #### [address] Polychromasia Slight Normal [facility] Comment on above: Performed By: #### C K, BNP, HS TROP, PTT, PT #### [address] Schistocytes Slight Normal [facility] Comment on above: Performed By: #### C K, BNP, HS TROP, PTT, PT #### [address] Sickle Cells Slight High None Seen [facility] Comment on above: Performed By: #### C K, BNP, HS TROP, PTT, PT #### [address] Target Cells Slight Normal [facility] Comment on above: Performed By: #### C K, BNP, HS TROP, PTT, PT #### [address] Tear Drop Cells Slight Normal [facility] Comment on above: Performed By: #### C K, BNP, HS TROP, PTT, PT #### [place] [address] [place] Dipstick and Microscopicon 0 03-30-2024 Bacteria,Urine 2+ High None Seen [facility] Comment on above: Order Comment: Name Collection Type:: Clean-Voided Midstream Performed By: #### C K, BNP, HS TROP, PTT, PT #### [address] Hyaline Casts,Urine 9-19 High 0-8 [facility] Comment on above: Order Comment: Name Collection Type:: Clean-Voided Midstream Performed By: #### C K, BNP, HS TROP, PTT, PT #### [address] Mucus,Urine Rare Normal [facility] Comment on above: Order Comment: Name Collection Type:: Clean-Voided Midstream Result Comment: PERF ORMED BY: [place] [address] PATHOLOGIST ENERGY CONSERVATION ENGINEER LILIANA CLAY M.D. Performed By: #### C K, BNP, HS TROP, PTT, PT #### [address] RBC,Urine 1-2 Normal 0-4 [facility] Comment on above: Order Comment: Name Collection Type:: Clean-Voided Midstream Performed By: #### C K, BNP, HS TROP, PTT, PT #### [address] Squamous Epithelial Cell,Urine 10-19 High 0-2 [facility] Comment on above: Order Comment: Name Collection Type:: Clean-Voided Midstream Performed By: #### C K, BNP, HS TROP, PTT, PT #### [address] WBC,Urine 10-19 High 0-4 [facility] Comment on above: Order Comment: Name Collection Type:: Clean-Voided Midstream Performed By: #### C K, BNP, HS TROP, PTT, PT #### [address] Drug Screen,Urineon 03-30-20 24 Amphetamine Screen,Urine Negative Normal Negative [facility] Comment on above: Performed By: #### C K, BNP, HS TROP, PTT, PT #### [address] Barbiturate Screen,Urine Positive High Negative [facility] Comment on above: Performed By: #### C K, BNP, HS TROP, PTT, PT #### [address] Benzodiazepines Screen,Urine Negative Normal Negative [facility] Comment on above: Performed By: #### C K, BNP, HS TROP, PTT, PT #### [address] Cannabinoid Screen,Urine Positive High Negative [facility] Comment on above: Result Comment: Thes e are unconfirmed results and should not be used for legal purposes. Drug Cut-Off Concentration: AMPH 1000 ng/mL ALESSANDRO 200 ng/mL RHINA 200 ng/mL COCM 300 ng/mL OP 300 ng/mL PCP 25 ng/mL THC 20 ng/mL PERFORMED BY: [place] [address] PATHOLOGIST ENERGY CONSERVATION ENGINEER LILIANA CLAY M.D. Performed By: #### C K, BNP, HS TROP, PTT, PT #### [address] Cocaine Screen,Urine Negative Normal Negative [facility] Comment on above: Performed By: #### C K, BNP, HS TROP, PTT, PT #### [address] Opiate Screen,Urine Negative Normal Negative [facility] Comment on above: Performed By: #### C K, BNP, HS TROP, PTT, PT #### [address] Phencyclidine Screen,Urine Negative Normal Negative [facility] Comment on above: Performed By: #### C K, BNP, HS TROP, PTT, PT #### [address] ECH echo transthoracicon ECH echo transthoracic [facility] Main [place] [address] [place] [address] Echocardiogram Signed Patient: Essence Vincent MR#: [id number] : 1970 Acct:[id number] Age/Sex: 53 / F ADM Date: 03/30/24 Loc: Room: [address] [place] [address] Type: ADM INOo Attending Dr: Patrica Mcmahon MD Ordering Provider: Kristyn Russell APRN Date of Service: 03/30/2409/22/499 ECH/ECH echo transthoracic: chf, chest pain Copies to: Sherly Brewer MD, [facility] Kristyn Russell APRN Ordering Physician: Kristyn Russell Height: 64 in Weight: 156 lb Performed By: MICHAEL Walton BSA: 1.8 m2 BP: 131/80 mmHg HR: 79 Reason For Study: chf, chest pain History: Atrial Thrombus, CHF, COPD, Depression, Hypotension, UT, AICD, SVT, Mitral Valve Replacement, CABG, Ablation, [...] Electronically (more content not included)... Normal [facility] Eosinophils Auto (Bld) [#/Vo l]Ordered By: Pedro Melo on 03-30-2024 Eosinophils (Bld) [#/Vol] N/A [facility] Eosinophils/100 WBC Auto (Bl d)Ordered By: Pedro Melo on 03-30-2024 Eosinophils/100 WBC (Bld) N/A [facility] Eosinophils/100 leukocytes i n Blood by Manual countOrdered By: Pedro Melo on 03-30-2024 Eosinophils/100 WBC (Bld) 2 % Normal 1-3 [facility] Comment on above: Performed By: #### C K, BNP, HS TROP, PTT, PT #### [facility] [address] Epithelial cells.squamous [# /area] in Urine sediment by Automated countOrdered By: Pedro Melo on 03-30-2024 Epithelial cells.squamous Auto (Urine sed) [#/Area] 10-19 [HPF] High 0-2 [facility] Erythrocyte distribution wid th [Ratio] by Automated countOrdered By: Kristyn Russell on 03-30-2024 Erythrocyte distribution width (RBC) [Ratio] 20.4 % High 11.9-15.3 [facility] Comment on above: Performed By: #### C K, BNP, HS TROP, PTT, PT #### [facility] [address] Erythrocyte distribution wid th [Ratio] by Automated countOrdered By: Pedro Melo on 03-30-2024 Erythrocyte distribution width (RBC) [Ratio] 20.5 % High 11.9-15.3 [facility] Comment on above: Performed By: #### C K, BNP, HS TROP, PTT, PT #### [facility] [address] [place] [address] Erythrocyte sickle cell dete ctionOrdered By: Pedro Melo on 03-30-2024 Sickle cells LM Ql (Bld) Slight High None Seen [facility] Erythrocytes [#/area] in Uri ne sediment by Automated countOrdered By: Pedro Melo on 03-30-2024 RBC Auto (Urine sed) [#/Area] 1-2 [HPF] 0-4 [facility] Erythrocytes [#/volume] in B lood by Automated countOrdered By: Kristyn Russell on 03-30-2024 RBC (Bld) [#/Vol] 5.05 10*6/uL High 3.60-5.00 [facility] Comment on above: Performed By: #### C K, BNP, HS TROP, PTT, PT #### [facility] [address] [place] [address] [place] Erythrocytes [#/volume] in B lood by Automated countOrdered By: Pedro Melo on 03-30-2024 RBC (Bld) [#/Vol] 5.00 10*6/uL Normal 3.60-5.00 [facility] Comment on above: Performed By: #### C K, BNP, HS TROP, PTT, PT #### [facility] [address] [place] [address] [place] Ferritin [Mass/volume] in Se rum or PlasmaOrdered By: Kristyn Russell on 03-30-2024 Ferritin [Mass/Vol] 18.6 ng/mL Normal 11.0-306.8 [facility] Comment on above: Performed By: #### M G, TSH3, FE and TIBC, LIPID, SCAN CBC, NEHAL, BMP #### [facility] [address] [place] [address] [place] Giant platelets/100 leukocyt es [Ratio] in Blood by Manual countOrdered By: Pedro Melo on 03-30-2024 Giant platelets/100 WBC Manual cnt (Bld) [Ratio] 5 /100{WBC} [facility] Glucose [Mass/volume] in Ser um or PlasmaOrdered By: Kristyn Russell on 03-30-2024 Glucose [Mass/Vol] 83 mg/dL Normal 70-100 [facility] Comment on above: ADA recommended refe rence rangeRandom Glucose Reference Range is dependent on time and content of last meal. Glucose of more than 200 mg/dL in a nonstressed, ambulatory subject supports the diagnosis of Diabetes Mellitus. Result Comment: [place] om Glucose Reference Range is dependent on time and content of last meal. Glucose of more than 200 mg/dL in a nonstressed, ambulatory subject supports the diagnosis of Diabetes Mellitus. ADA recommended reference range Performed By: #### M G, TSH3, FE and TIBC, LIPID, SCAN CBC, NEHAL, BMP #### [facility] [address] [place] [address] [place] Glucose [Mass/volume] in Ser um or PlasmaOrdered By: Pedro Melo on 03-30-2024 Glucose [Mass/Vol] 126 mg/dL High 70-100 [facility] Comment on above: ADA recommended refe rence rangeRandom Glucose Reference Range is dependent on time and content of last meal. Glucose of more than 200 mg/dL in a nonstressed, ambulatory subject supports the diagnosis of Diabetes Mellitus. Result Comment: [place] Glucose Reference Range is dependent on time and content of last meal. Glucose of more than 200 mg/dL in a nonstressed, ambulatory subject supports the diagnosis of Diabetes Mellitus. ADA recommended reference range Performed By: #### C K, BNP, HS TROP, PTT, PT #### [address] Glucose [Mass/volume] in Uri ne by Test stripOrdered By: Pedro Melo on 03-30-2024 Glucose Test strip (U) [Mass/Vol] Normal mg/dL Normal [facility] Helmet cell detectionOrdered By: Kristyn Russell on 03-30-2024 Helmet cells LM Ql (Bld) [facility] Hematocrit [Volume Fraction] of Blood by Automated countOrdered By: Kristyn Russell on 03-30-2024 Hematocrit (Bld) [Volume fraction] 31.6 % Low 34.0-46.4 [facility] Comment on above: Performed By: #### C K, BNP, HS TROP, PTT, PT #### [address] Hematocrit [Volume Fraction] of Blood by Automated countOrdered By: Pedro Melo on 03-30-2024 Hematocrit (Bld) [Volume fraction] 31.3 % Low 34.0-46.4 [facility] Comment on above: Performed By: #### C K, BNP, HS TROP, PTT, PT #### [address] Hemoglobin Test strip Ql (U) Ordered By: Pedro Melo on 03-30-2024 Hemoglobin Ql (U) Trace High Negative [facility] Hemoglobin [Mass/volume] in BloodOrdered By: Kristyn Russell on 03-30-2024 Hemoglobin (Bld) [Mass/Vol] 9.5 g/dL Low 11.8-15.4 [facility] Comment on above: Performed By: #### C K, BNP, HS TROP, PTT, PT #### [facility] [address] Hemoglobin [Mass/volume] in BloodOrdered By: Pedro Melo on 03-30-2024 Hemoglobin (Bld) [Mass/Vol] 9.3 g/dL Low 11.8-15.4 [facility] Comment on above: Performed By: #### C K, BNP, HS TROP, PTT, PT #### [facility] [address] Hyaline casts [#/area] in Ur ine sediment by Automated countOrdered By: Pedro Melo on 03-30-2024 Hyaline casts Auto (Urine sed) [#/Area] 9-19 [LPF] High 0-8 [facility] Hypochromia LM Ql (Bld)Order ed By: Kristyn Russell on 03-30-2024 Hypochromia Ql (Bld) Marked [facility] Hypochromia LM Ql (Bld)Order ed By: Pedro Melo on 03-30-2024 Hypochromia Ql (Bld) Marked [facility] INR in Platelet poor plasma by Coagulation assayOrdered By: Kristyn Russell on 03-30-2024 INR Coag (PPP) [Relative time] 1.1 {INR} Normal [facility] Comment on above: INR Therapeutic [...] heart valves: 3 - 4.5 PERFORMED BY: [place] [address] PATHOLOGIST ENERGY CONSERVATION ENGINEER LILIANA CLAY M.D. Performed By: #### C K, BNP, HS TROP, PTT, PT #### [address] INR in Platelet poor plasma by Coagulation assayOrdered By: Pedro Melo on 03-30-2024 INR Coag (PPP) [Relative time] 1.1 {INR} Normal [facility] Comment on above: INR Therapeutic [...] K, BNP, HS TROP, PTT, PT #### [address] Iron [Mass/volume] in Serum or PlasmaOrdered By: Kristyn Russell on 03-30-2024 Iron [Mass/Vol] 19 ug/dL Low 50-212 [facility] Comment on above: Performed By: #### M G, TSH3, FE and TIBC, LIPID, SCAN CBC, NEHAL, BMP #### [facility] [address] [place] [address] Iron and TIBC Profileon % Iron Saturation 3.7 % Low 20-50 [facility] Comment on above: Performed By: #### M G, TSH3, FE and TIBC, LIPID, SCAN CBC, NEHAL, BMP #### [facility] [address] [place] [id number] [facility] Total Iron Binding Capacity 512 ug/dL High 255-450 [facility] Comment on above: Performed By: #### M G, TSH3, FE and TIBC, LIPID, SCAN CBC, NEHAL, BMP #### [facility] [address] [place] [id number] [facility] Iron binding capacity [Mass/ volume] in Serum or PlasmaOrdered By: Kristyn Russell on 03-30-2024 Iron binding capacity [Mass/Vol] 512 ug/dL High 255-450 [facility] Iron saturation [Mass Fracti on] in Serum or PlasmaOrdered By: Kristyn Russell on 03-30-2024 Iron saturation [Mass fraction] 3.7 % Low 20-50 [facility] Ketones [Presence] in Urine by Test stripOrdered By: Pedro Melo on 03-30-2024 Ketones Ql (U) Negative Normal Negative [facility] Comment on above: Order Comment: Name Collection Type:: Clean-Voided Midstream Performed By: #### C K, BNP, HS TROP, PTT, PT #### [facility] [address] [place] [id number] [facility] Siddharth 03-30-2024 L Specimen: [id number] Received: 03/30/24 Status: SOUT Req Num: [id number] Spec Type: Impression Subm Dr: Pedro Melo DO Tissues: PATHPER Procedures: PATHREVIEW Age/ Patient Sex Location Account Attending Physician Essence Vincent 53/F [id number] Patrica Mcmahon MD SPEC NUM: [id number] RECD: 03/30/24 STATUS: SOUT REQ NUM: [id number] MAC: 03/30/24- SUBM DR: Pedro Melo DO ENTERED: 03/30/24 [facility] DR: SPEC TYPE: Impression DEPT: NC ENTERED BY: [id number] RECV BY: [id number] ORDERED: PATHREVIEW ORDERED: PATHREVIEW Pathologist Review Microcytic Anemia Is Noted. Differential Diagnosis Includes Iron Deficiency Vs. Alpha Or Beta Thalassemia. Correlation With Iron Studies And Hemoglobin Electrophoresis Results Is Suggested. [id number] Specimen: [id number] Received: 03/30/24 Status: YADIRA Chaconnima Num: [id number] Spec Type: Impression Subm Dr: Pedro Melo DO Tissues: PATHPER Procedures: PATHREVIEW Patient: Essence Vincent [id number] (Continued) Signed (signature on file) Zacarias Ocampo MD 03/30/24 1505 Normal [facility] Leukocyte esterase [Presence ] in Urine by Test stripOrdered By: Pedro Melo on 03-30-2024 Leukocyte esterase Test strip Ql (U) 3+ High Negative [facility] Comment on above: Order Comment: Name Collection Type:: Clean-Voided Midstream Performed By: #### C K, BNP, HS TROP, PTT, PT #### [facility] [address] Leukocytes [#/area] in Urine sediment by Automated countOrdered By: Pedro Melo on 03-30-2024 WBC Auto (Urine sed) [#/Area] 10-19 [HPF] High 0-4 [facility] Leukocytes [#/volume] correc janis for nucleated erythrocytes in Blood by Automated counOrdered By: Kristyn Russell on 03-30-2024 WBC corrected for nucl RBC Auto (Bld) [#/Vol] 11.1 10*3/uL 3.8-11.6 [facility] Leukocytes [#/volume] correc janis for nucleated erythrocytes in Blood by Automated counOrdered By: Pedro Melo on 03-30-2024 WBC corrected for nucl RBC Auto (Bld) [#/Vol] 9.7 10*3/uL 3.8-11.6 [facility] Leukocytes [#/volume] in Blo od by Automated countOrdered By: Kristyn Russell on 03-30-2024 WBC (Bld) [#/Vol] 11.1 10*3/uL Normal 3.8-11.6 [facility] Comment on above: Performed By: #### C K, BNP, HS TROP, PTT, PT #### [facility] [address] Leukocytes [#/volume] in Blo od by Automated countOrdered By: Pedro Melo on 03-30-2024 WBC (Bld) [#/Vol] 9.7 10*3/uL Normal 3.8-11.6 [facility] Comment on above: Performed By: #### C K, BNP, HS TROP, PTT, PT #### [facility] [address] Lipid Panelon 03-30-2024 LDL Cholesterol,Calculated 38 mg/dL Normal 0-100 [facility] Comment on above: Result Comment: LDL ATP III CLASSIFICATION LDL less than 100 mg/dL Optimal LDL 100-129 mg/dL Near or above optimal LDL 130-159 mg/dL Borderline high LDL 160-189 mg/dL High LDL greater than 189 mg/dL Very high Performed By: #### C K, BNP, HS TROP, PTT, PT #### [facility] [address] Triglyceride w/Reflex 59 mg/dL Normal 0-149 [facility] Comment on above: Result Comment: TRIG ATP III CLASSIFICATION TRIG less than 150 mg/dL Normal TRIG 150-199 mg/dL Borderline high TRIG 200-500 mg/dL High TRIG greater than 500 mg/dL Very high Standard traceable to the Center for Disease Conrtrol and Prevention (CDC) test method. Performed By: #### C K, BNP, HS TROP, PTT, PT #### [facility] [address] VLDL CHOLESTEROL 11 mg/dL Normal [facility] Comment on above: Performed By: #### C K, BNP, HS TROP, PTT, PT #### [facility] [address] Lymphocytes Auto (Bld) [#/Vo l]Ordered By: Pedro Melo on 03-30-2024 Lymphocytes (Bld) [#/Vol] N/A [facility] Lymphocytes [#/volume] in Bl ood by Automated countOrdered By: Kristyn Russell on 03-30-2024 Lymphocytes (Bld) [#/Vol] 1.6 10*3/uL Normal 1.00-4.8 [facility] Comment on above: Performed By: #### C K, BNP, HS TROP, PTT, PT #### [facility] [address] [place] [address] [place] Lymphocytes/100 WBC Auto (Bl d)Ordered By: Pedro Melo on 03-30-2024 Lymphocytes/100 WBC (Bld) N/A [facility] Lymphocytes/100 leukocytes i n Blood by Automated countOrdered By: Kristyn Russell on 03-30-2024 Lymphocytes/100 WBC (Bld) 14.4 % Normal . [facility] Comment on above: Performed By: #### C K, BNP, HS TROP, PTT, PT #### [address] Lymphocytes/100 leukocytes i n Blood by Manual countOrdered By: Pedro Melo on 03-30-2024 Lymphocytes/100 WBC (Bld) 13 % Low 18-42 [facility] Comment on above: Performed By: #### C K, BNP, HS TROP, PTT, PT #### [facility] [address] [place] [address] MCH [Entitic mass] by Automa janis countOrdered By: Kristyn Russell on 03-30-2024 MCH (RBC) [Entitic mass] 18.8 pg Low 24.7-34.3 [facility] Comment on above: Performed By: #### C K, BNP, HS TROP, PTT, PT #### [address] MCH [Entitic mass] by Automa janis countOrdered By: Pedro Melo on 03-30-2024 MCH (RBC) [Entitic mass] 18.6 pg Low 24.7-34.3 [facility] Comment on above: Performed By: #### C K, BNP, HS TROP, PTT, PT #### [address] MCHC Auto (RBC) [Mass/Vol]Or dered By: Kristyn Russell on 03-30-2024 MCHC (RBC) [Mass/Vol] 30.0 g/dL Low 32.0-35.0 [facility] MCHC Auto (RBC) [Mass/Vol]Or dered By: Pedro Melo on 03-30-2024 MCHC (RBC) [Mass/Vol] 29.8 g/dL Low 32.0-35.0 [facility] MCV [Entitic volume] by Auto mated countOrdered By: Kristyn Russell on 03-30-2024 MCV (RBC) [Entitic vol] 62.5 fL Low 80-100 [facility] Comment on above: Performed By: #### C K, BNP, HS TROP, PTT, PT #### [address] MCV [Entitic volume] by Auto mated countOrdered By: Pedro Melo on 03-30-2024 MCV (RBC) [Entitic vol] 62.7 fL Low 80-100 [facility] Comment on above: Performed By: #### C K, BNP, HS TROP, PTT, PT #### [facility] [address] [place] [address] Magnesium [Mass/volume] in S daisy or PlasmaOrdered By: Kristyn Russell on 03-30-2024 Magnesium [Mass/Vol] 1.8 mg/dL Low 1.9-2.7 [facility] Comment on above: Performed By: #### M G, TSH3, FE and TIBC, LIPID, SCAN CBC, NEHAL, BMP #### [facility] [address] [place] [address] Manual blood segmented neutr ophils/100 leukocytesOrdered By: Pedro Melo on 03-30-2024 Segmented neutrophils/100 WBC (Bld) 77 % High 50-70 [facility] Comment on above: Performed By: #### C K, BNP, HS TROP, PTT, PT #### [facility] [address] [place] [address] [place] Microcytes LM Ql (Bld)Ordere d By: Kristyn Russell on 03-30-2024 Microcytes Ql (Bld) Marked [facility] Microcytes LM Ql (Bld)Ordere d By: Pedro Melo on 03-30-2024 Microcytes Ql (Bld) Marked [facility] Monocyte distribution width [Entitic volume] in Blood by AutomatedOrdered By: Pedro Melo on 03-30-2024 Monocyte distribution width Auto (Bld) [Entitic vol] 16.64 % 0.00-20.00 [facility] Monocytes Auto (Bld) [#/Vol] Ordered By: Pedro Melo on 03-30-2024 Monocytes (Bld) [#/Vol] N/A [facility] Monocytes/100 WBC Auto (Bld) Ordered By: Pedro Melo on 03-30-2024 Monocytes/100 WBC (Bld) N/A [facility] Monocytes/100 leukocytes in Blood by Manual countOrdered By: Pedro Melo on 03-30-2024 Monocytes/100 WBC (Bld) 5 % Normal 2-11 [facility] Comment on above: Performed By: #### C K, BNP, HS TROP, PTT, PT #### [facility] [address] Mucus [Presence] in Urine by AutomatedOrdered By: Pedro Melo on 03-30-2024 Mucus Auto Ql (U) Rare [LPF] [facility] Myelocytes/100 WBC Manual cn t (Bld)Ordered By: Pedro Melo on 03-30-2024 Myelocytes/100 WBC (Bld) 1 % High 0-0 [facility] Neutrophils Auto (Bld) [#/Vo l]Ordered By: Pedro Melo on 03-30-2024 Neutrophils (Bld) [#/Vol] N/A [facility] Neutrophils [#/volume] in Bl ood by Automated countOrdered By: Kristyn Russell on 03-30-2024 Neutrophils (Bld) [#/Vol] 8.3 10*3/uL High 1.8-7.7 [facility] Comment on above: Performed By: #### C K, BNP, HS TROP, PTT, PT #### [facility] [address] Neutrophils/100 WBC Auto (Bl d)Ordered By: Pedro Melo on 03-30-2024 Neutrophils/100 WBC (Bld) N/A [facility] Nitrite Test strip Ql (U)Ord ered By: Pedro Melo on 03-30-2024 Nitrite Ql (U) Negative Negative [facility] No Panel InformationOrdered By: Kristyn Russell on 03-30-2024 Estimated GFR (CKD-EPI) > 60.0 mL/Min [facility] Creatinine Clearance (Chem 62.62 [facility] No Panel InformationOrdered By: Pedro Melo on 03-30-2024 Estimated GFR (CKD-EPI) > 60.0 mL/Min [facility] Creatinine Clearance (Chem 58.60 [facility] Slides for Pathologist Review Ordered path review [facility] Nucleated erythrocytes [Pres ence] in Blood by Automated countOrdered By: Kristyn Russell on 03-30-2024 Nucleated RBC Auto Ql (Bld) 0.0 /100{WBC} 0-0.5 [facility] Nucleated erythrocytes [Pres ence] in Blood by Automated countOrdered By: Pedro Melo on 03-30-2024 Nucleated RBC Auto Ql (Bld) N/A [facility] Opiates [Presence] in Urine by Screen methodOrdered By: Pedro Melo on 03-30-2024 Opiates Screen Ql (U) Negative Negative Fir [facility] Ovalocyte detectionOrdered B y: Kristyn Russell on 03-30-2024 Ovalocytes LM Ql (Bld) [facility] Ovalocyte detectionOrdered B y: Pedro Melo on 03-30-2024 Ovalocytes LM Ql (Bld) Slight Fi [facility] Partial Thromboplastin Timeo n 03-30-2024 aPTT Coag (Bld) [Time] 25.3 s Normal 25.1-36.5 [facility] Comment on above: Result Comment: A he matocrit value greater than 55% may lead to inaccurate results in coagulation testing. Patients having hematocrit values >55% require a special collection tube for coagulation studies. Please contact the laboratory at [phone] for redraw instructions. PERFORMED BY: [place] [address] PATHOLOGIST ENERGY CONSERVATION ENGINEER LILIANA CLAY M.D. Performed By: #### C K, BNP, HS TROP, PTT, PT #### [facility] [address] [place] [address] Pathologist Slide Reviewon 0 03-30-2024 Pathologist Slide Review Ordered Path Review Normal [facility] Comment on above: Result Comment: PERF ORMED BY: [place] [address] PATHOLOGIST ENERGY CONSERVATION ENGINEER LILIANA CLAY M.D. Performed By: #### C K, BNP, HS TROP, PTT, PT #### [place] [id number] [facility] Phencyclidine Screen Ql (U)O rdered By: Pedro Melo on 08-01-2024 Phencyclidine Ql (U) Negative Negative [facility] Platelet adequacy [Presence] in Blood by Light microscopyOrdered By: Kristyn Russell on 03-30-2024 Platelets LM Ql (Bld) Normal Normal [facility] Platelet adequacy [Presence] in Blood by Light microscopyOrdered By: Pedro Melo on 03-30-2024 Platelets LM Ql (Bld) Normal Normal [facility] Platelet mean volume [Entiti c volume] in Blood by Automated countOrdered By: Kristyn Russell on 03-30-2024 Platelet mean volume (Bld) [Entitic vol] 9.3 fL Normal 6.3-10.7 [facility] Comment on above: Performed By: #### C K, BNP, HS TROP, PTT, PT #### [facility] [address] [place] [address] [place] Platelet mean volume [Entiti c volume] in Blood by Automated countOrdered By: Pedro Melo on 03-30-2024 Platelet mean volume (Bld) [Entitic vol] 8.7 fL Normal 6.3-10.7 [facility] Comment on above: Performed By: #### C K, BNP, HS TROP, PTT, PT #### [facility] [address] Platelet morphology finding [Identifier] in BloodOrdered By: Kristyn Russell on 03-30-2024 Platelet morphology finding Nom (Bld) Normal Normal [facility] Platelet morphology finding [Identifier] in BloodOrdered By: Pedro Melo on 03-30-2024 Platelet morphology finding Nom (Bld) Normal Normal [facility] Platelets [#/volume] in Bloo d by Automated countOrdered By: Kristyn Russell on 03-30-2024 Platelets (Bld) [#/Vol] 247 10*3/uL Normal 150-450 [facility] Comment on above: Performed By: #### C K, BNP, HS TROP, PTT, PT #### [facility] [address] [place] [address] [place] Platelets [#/volume] in Bloo d by Automated countOrdered By: Pedro Melo on 03-30-2024 Platelets (Bld) [#/Vol] 264 10*3/uL Normal 150-450 [facility] Comment on above: Performed By: #### C K, BNP, HS TROP, PTT, PT #### [facility] [address] Poikilocytosis [Presence] in Blood by Light microscopyOrdered By: Kristyn Russell on 03-30-2024 Poikilocytosis LM Ql (Bld) Moderate [facility] Poikilocytosis [Presence] in Blood by Light microscopyOrdered By: Pedro Melo on 03-30-2024 Poikilocytosis LM Ql (Bld) Moderate [facility] Polychromasia [Presence] in Blood by Light microscopyOrdered By: Kristyn Russell on 03-30-2024 Polychromasia LM Ql (Bld) Marked [facility] Polychromasia [Presence] in Blood by Light microscopyOrdered By: Pedro Melo on 03-30-2024 Polychromasia LM Ql (Bld) Slight [facility] Potassium [Moles/volume] in Serum or PlasmaOrdered By: Kristyn Russell on 03-30-2024 Potassium [Moles/Vol] 4.4 mmol/L Normal 3.5-5.1 [facility] Comment on above: Performed By: #### M G, TSH3, FE and TIBC, LIPID, SCAN CBC, NEHAL, BMP #### [facility] [address] [place] [address] Potassium [Moles/volume] in Serum or PlasmaOrdered By: Pedro Melo on 03-30-2024 Potassium [Moles/Vol] 3.3 mmol/L Low 3.5-5.1 [facility] Comment on above: Performed By: #### C K, BNP, HS TROP, PTT, PT #### [facility] [address] Protein Test strip (U) [Mass /Vol]Ordered By: Pedro Melo on 03-30-2024 Protein (U) [Mass/Vol] Negative Negative [facility] Prothrombin time (PT)Ordered By: Kristyn Russell on 03-30-2024 PT Coag (PPP) [Time] 12.5 s Normal 9.0-12.9 [facility] Comment on above: A hematocrit value g reater than 55% may lead to inaccurate results in coagulation testing. Patients having hematocrit values >55% require a special collection tube for coagulation studies. Please contact the laboratory at [phone] for redraw instructions. Result Comment: A he matocrit value greater than 55% may lead to inaccurate results in coagulation testing. Patients having hematocrit values >55% require a special collection tube for coagulation studies. Please contact the laboratory at [phone] for redraw instructions. Performed By: #### C K, BNP, HS TROP, PTT, PT #### [facility] [address] [place] [id number] [facility] Prothrombin time (PT)Ordered By: Pedro Melo on 03-30-2024 PT Coag (PPP) [Time] 12.9 s Normal 9.0-12.9 [facility] Comment on above: A hematocrit value g reater than 55% may lead to inaccurate results in coagulation testing. Patients having hematocrit values >55% require a special collection tube for coagulation studies. Please contact the laboratory at [phone] for redraw instructions. Result Comment: A he matocrit value greater than 55% may lead to inaccurate results in coagulation testing. Patients having hematocrit values >55% require a special collection tube for coagulation studies. Please contact the laboratory at [phone] for redraw instructions. Performed By: #### C K, BNP, HS TROP, PTT, PT #### [facility] [address] RBC morphologyOrdered By: Mayo Russell on 03-30-2024 RBC morphology finding Nom (Bld) N/A [facility] RBC morphologyOrdered By: William Melo on 03-30-2024 RBC morphology finding Nom (Bld) N/A [facility] Scan and CBCon 03-30-2024 Acanthocytes Slight Normal [facility] Comment on above: Performed By: #### C K, BNP, HS TROP, PTT, PT #### [facility] [address] Crenated RBC Slight Normal [facility] Comment on above: Performed By: #### C K, BNP, HS TROP, PTT, PT #### [address] Helmet Cells Slight Normal [facility] Comment on above: Performed By: #### C K, BNP, HS TROP, PTT, PT #### [address] Hypochromasia Marked Normal [facility] Comment on above: Performed By: #### C K, BNP, HS TROP, PTT, PT #### [address] Mean Corpuscular HGB Conc 30.0 g/dL Low 32.0-35.0 [facility] Comment on above: Performed By: #### C K, BNP, HS TROP, PTT, PT #### [address] Microcytosis Marked Normal [facility] Comment on above: Performed By: #### C K, BNP, HS TROP, PTT, PT #### [address] NRBC% 0.0 /100{WBC} Normal 0-0.5 [facility] Comment on above: Performed By: #### C K, BNP, HS TROP, PTT, PT #### [address] Ovalocytes Slight Normal [facility] Comment on above: Performed By: #### C K, BNP, HS TROP, PTT, PT #### [address] Platelet Estimate Normal Normal Normal [facility] Comment on above: Performed By: #### C K, BNP, HS TROP, PTT, PT #### [address] Platelet Morphology Normal Normal Normal [facility] Comment on above: Result Comment: PERF ORMED BY: [place] [address] PATHOLOGIST ENERGY CONSERVATION ENGINEER JIANLAN SUN M.D. Performed By: #### C K, BNP, HS TROP, PTT, PT #### [facility] [address] Poikilocytosis Moderate Normal [facility] Comment on above: Performed By: #### C K, BNP, HS TROP, PTT, PT #### [facility] [address] Polychromasia Marked Normal [facility] Comment on above: Performed By: #### C K, BNP, HS TROP, PTT, PT #### [facility] [address] Target Cells Slight Normal [facility] Comment on above: Performed By: #### C K, BNP, HS TROP, PTT, PT #### [facility] [address] Schistocytes [Presence] in B lood by Light microscopyOrdered By: Pedro Melo on 03-30-2024 Schistocytes LM Ql (Bld) Slight [facility] Serum or plasma anion gap de terminationOrdered By: Kristyn Russell on 03-30-2024 Anion gap [Moles/Vol] 13.0 mmol/L Normal 6.0-15.0 [facility] Comment on above: Performed By: #### M G, TSH3, FE and TIBC, LIPID, SCAN CBC, NEHAL, BMP #### [address] Serum or plasma anion gap de terminationOrdered By: Pedro Melo on 03-30-2024 Anion gap [Moles/Vol] 12.4 mmol/L Normal 6.0-15.0 [facility] Comment on above: Performed By: #### C K, BNP, HS TROP, PTT, PT #### [address] Serum or plasma high density lipoprotein (HDL) cholesterol measurementOrdered By: Kristyn Russell on 03-30-2024 Cholesterol in HDL [Mass/Vol] 39 mg/dL Normal 23-92 [facility] Comment on above: HDL CHOL ATP-III CLA SSIFICATION Cardiovascular RiskHDL > or equal to 60 mg/dL LOWHDL < 40 mg/dL HIGH Result Comment: HDL CHOL ATP-III CLASSIFICATION Cardiovascular Risk HDL > or equal to 60 mg/dL LOW HDL < 40 mg/dL HIGH Performed By: #### C K, BNP, HS TROP, PTT, PT #### [address] Serum or plasma total choles terol/high density lipoprotein (HDL) cholesterol mass ratOrdered By: Kristyn Russell on 03-30-2024 Cholesterol.total/Chol esterol in HDL [Mass ratio] 2.3 {ratio} Normal <5.0 [facility] Comment on above: Performed By: #### C K, BNP, HS TROP, PTT, PT #### [address] Sodium [Moles/volume] in Ser um or PlasmaOrdered By: Kristyn Russell on 03-30-2024 Sodium [Moles/Vol] 136 mmol/L Normal 136-145 [facility] Comment on above: Performed By: #### M G, TSH3, FE and TIBC, LIPID, SCAN CBC, NEHAL, BMP #### [facility] [address] [place] [address] Sodium [Moles/volume] in Ser um or PlasmaOrdered By: Pedro Melo on 03-30-2024 Sodium [Moles/Vol] 137 mmol/L Normal 136-145 [facility] Comment on above: Performed By: #### C K, BNP, HS TROP, PTT, PT #### [facility] [address] [place] [address] Specific gravity Test strip (U) [Rel density]Ordered By: Pedro Melo on 03-30-2024 Specific gravity (U) [Rel density] 1.016 1.001-1.03 0 [facility] Target cellsOrdered By: Aram Russell on 03-30-2024 Target cells LM Ql (Bld) [facility] Target cellsOrdered By: Isai Melo on 03-30-2024 Target cells LM Ql (Bld) [facility] Teardrop cell detectionOrder ed By: Pedro Melo on 03-30-2024 Dacrocytes LM Ql (Bld) Slight [facility] Thyrotropin [Units/volume] i n Serum or PlasmaOrdered By: Kristyn Russell on 03-30-2024 TSH Qn 5.94 m[IU]/L High 0.45-5.33 [facility] Comment on above: Result Comment: PERF ORMED BY: [place] [address] PATHOLOGIST ENERGY CONSERVATION ENGINEER LILIANA CLAY M.D. Performed By: #### C K, BNP, HS TROP, PTT, PT #### [facility] [address] [place] [address] Transferrin [Mass/volume] in Serum or PlasmaOrdered By: Kristyn Russell on 03-30-2024 Transferrin [Mass/Vol] 366 mg/dL High 203-362 [facility] Comment on above: Performed By: #### M G, TSH3, FE and TIBC, LIPID, SCAN CBC, NEHAL, BMP #### [facility] [address] [place], [place] [id number] [facility] Triglyceride [Mass/volume] i n Serum or PlasmaOrdered By: Kristyn Russell on 03-30-2024 Triglyceride [Mass/Vol] 59 mg/dL 0-149 [facility] Comment on above: TRIG ATP III CLASSIF ICATIONTRIG less than 150 mg/dL NormalTRIG 150-199 mg/dL Borderline highTRIG 200-500 mg/dL High TRIG greater than 500 mg/dL Very highStandard traceable to the Center for Disease Conrtrol and Prevention (CDC) test method. Troponin I High Sensitivityo n 03-30-2024 Troponin I High Sensitivity 15.4 pg/mL High 0.0-15.0 [facility] Comment on above: Result Comment: PERF ORMED BY: [place] [address] PATHOLOGIST ENERGY CONSERVATION ENGINEER LILIANA CLAY M.D. Performed By: #### C K, BNP, HS TROP, PTT, PT #### [facility] [address] [place], [place] [id number] [facility] Troponin I High Sensitivity 17.5 pg/mL High 0.0-15.0 [facility] Comment on above: Result Comment: PERF ORMED BY: [place] [address] PATHOLOGIST ENERGY CONSERVATION ENGINEER LILIANA CLAY M.D. Performed By: #### C K, BNP, HS TROP, PTT, PT #### [facility] [address] [place] [address] [facility] Troponin I High Sensitivity 14.0 pg/mL Normal 0.0-15.0 [facility] Comment on above: Result Comment: PERF ORMED BY: [place] [address] PATHOLOGIST ENERGY CONSERVATION ENGINEER LILIANA CLAY M.D. Performed By: #### C K, BNP, HS TROP, PTT, PT #### [address] [address] Troponin I.cardiac [Mass/vol ume] in Serum or Plasma by Detection limit <= 0.01 ng/Ordered By: Kendrick Jorgensen on 03-30-2024 Troponin I.cardiac DL <= 0.01 ng/mL [Mass/Vol] 15.4 pg/mL High 0.0-15.0 [facility] Troponin I.cardiac [Mass/vol ume] in Serum or Plasma by Detection limit <= 0.01 ng/Ordered By: Pedro Melo on 03-30-2024 Troponin I.cardiac DL <= 0.01 ng/mL [Mass/Vol] 14.0 pg/mL 0.0-15.0 [facility] Urea nitrogen [Mass/volume] in Serum or PlasmaOrdered By: Kristyn Russell on 03-30-2024 Urea nitrogen [Mass/Vol] 25 mg/dL Normal 03-23 [facility] Comment on above: Performed By: #### M G, TSH3, FE and TIBC, LIPID, SCAN CBC, NEHAL, BMP #### [facility] [address] [place], [place] [id number] [place] Urea nitrogen [Mass/volume] in Serum or PlasmaOrdered By: Pedro eMlo on 03-30-2024 Urea nitrogen [Mass/Vol] 27 mg/dL High 03-23 [facility] Comment on above: Performed By: #### C K, BNP, HS TROP, PTT, PT #### [address] Urinalysison 03-30-2024 Bilirubin,Urine Negative Normal Negative [facility] Comment on above: Order Comment: Name Collection Type:: Clean-Voided Midstream Performed By: #### C K, BNP, HS TROP, PTT, PT #### [address] Glucose Ql (U) Normal Normal Normal [facility] Comment on above: Order Comment: Name Collection Type:: Clean-Voided Midstream Performed By: #### C K, BNP, HS TROP, PTT, PT #### [address] Nitrite,Urine Negative Normal Negative [facility] Comment on above: Order Comment: Name Collection Type:: Clean-Voided Midstream Performed By: #### C K, BNP, HS TROP, PTT, PT #### [address] Occult Blood,Urine Trace High Negative [facility] Comment on above: Order Comment: Name Collection Type:: Clean-Voided Midstream Result Comment: PERF ORMED BY: [place] [address] PATHOLOGIST ENERGY CONSERVATION ENGINEER LILIANA CLAY M.D. Performed By: #### C K, BNP, HS TROP, PTT, PT #### [address] Protein,Urine Negative Normal Negative [facility] Comment on above: Order Comment: Name Collection Type:: Clean-Voided Midstream Performed By: #### C K, BNP, HS TROP, PTT, PT #### [address] Specificy Brady,Urine 1.016 Normal 1.001-1.03 0 [facility] Comment on above: Order Comment: Name Collection Type:: Clean-Voided Midstream Performed By: #### C K, BNP, HS TROP, PTT, PT #### [facility] [address] [place] [id number] [facility] Urobilinogen,Urine Normal Normal Normal [facility] Comment on above: Order Comment: Name Collection Type:: Clean-Voided Midstream Performed By: #### C K, BNP, HS TROP, PTT, PT #### [facility] [address] [place] [id number] [facility] Urine Cultureon 03-30-2024 Bacteria identified Cx Nom (U) ORGANISM: Proteus mirabilis (O:PROMIR) Griffin Count >100,000 Aerobic RAFAEL Charge (NMIC56) SUSCEPTIBILITY [...] RESISTANT TO ALL B-LACTAM DRUGS. PERFORMED BY: [facility] [address] [facility] [address] PATHOLOGIST ENERGY CONSERVATION ENGINEER LILIANA CLAY M.D. Normal [facility] Comment on above: Performed By: #### C K, BNP, HS TROP, PTT, PT #### [facility] [address] Urine appearanceOrdered By: Pedro Melo on 03-30-2024 Appearance (U) Clear Normal Clear [facility] Comment on above: Order Comment: Name Collection Type:: Clean-Voided Midstream Performed By: #### C K, BNP, HS TROP, PTT, PT #### [facility] [address] [place] [address] Urobilinogen Test strip (U) [Mass/Vol]Ordered By: Pedro Melo on 03-30-2024 Urobilinogen (U) [Mass/Vol] Normal mg/dL Normal [facility] XR chest 2V*on 03-30-2024 XR chest 2V* [facility] [place] [address] [place] [address] XRay Report Signed Patient: Essence Vincent MR#: [id number] : 1970 Acct:[id number] Age/Sex: 53 / F ADM Date: 03/30/24 Loc: Room: [address] [place] [address] Type: ADM INOo Attending Dr: Patrica Mcmahon [...] Christopher Walker M.D.03/30/2024 8:11 AM Dictation Location: [place] [address] Transcribed By: [facility] 03/30/24 08 Dictated By: Christopher Walker DO 03/30/24[address] Signed By: 03/30/24 08 Normal [facility] pH of Urine by Test stripOrd ered By: Pedro Melo on 03-30-2024 pH (U) 6.5 [pH] Normal 5.0-9.0 [facility] Comment on above: Order Comment: Name Collection Type:: Clean-Voided Midstream Performed By: #### C K, BNP, HS TROP, PTT, PT #### [facility] [address] [place] [address] ECG 12 lead ECGon 03-29-2024 ECG 12 lead ECG [facility] [place] [address] [place] [address] Electrocardiograph Report Signed Patient: Essence Vincent MR#: [id number] : 1970 Acct:[id number] Age/Sex: 53 / F ADM Date: 03/29/24 Loc: ER Room: Type: [facility] ER Attending Dr: Ordering Provider: Pedro Melo [...] paced beats Confirmed by Pedro MELO DO ([id number]) on 03/30/2024 1:41:19 AM Referred By: Electronically Signed By: Pedro MELO DO Transcribed By: MUS Signed By Pedro Melo DO 0 03/30/24 0141 Normal [facility] Basophils Auto (Bld) [#/Vol] on 02-17-2024 Basophils (Bld) [#/Vol] 0.2 10 3/uL High 0.0-0.1 [facility] Basophils/100 WBC Auto (Bld) on 02-17-2024 Basophils/100 WBC (Bld) 1.7 % 0.2-2.0 [facility] Eosinophils/100 WBC Auto (Bl d)on 02-17-2024 Eosinophils/100 WBC (Bld) 0.9 % 0.9-7.0 [facility] Erythrocyte distribution wid th Auto (RBC) [Ratio]on 02-17-2024 Erythrocyte distribution width (RBC) [Ratio] 21.2 % High 11.0-15.0 [facility] Estimated glomerular filtrat ion rate (GFR) non- Americanon 02-17-2024 GFR/1.73 sq M.predicted among non-blacks MDRD (S/P/Bld) [Vol rate/Area] 50 mL/min/{1.73_m2} Low >=60 [facility] Globulin Calc (S) [Mass/Vol] on 02-17-2024 Globulin (S) [Mass/Vol] 4.3 g/dL [facility] Hematocrit Auto (Bld) [Volum e fraction]on 02-17-2024 Hematocrit (Bld) [Volume fraction] 34.1 % Low 36.0-48.0 [facility] Hemoglobin [Mass/volume] in Bloodon 02-17-2024 Hemoglobin (Bld) [Mass/Vol] 9.6 g/dL Low 12.0-16.0 [facility] INR in Platelet poor plasma by Coagulation assayon 02-17-2024 INR Coag (PPP) [Relative time] 2.68 {INR} [facility] Comment on above: DESIRED INR:2.0-3.0 CONDITIONS NOT LISTED BELOW2.5-3.5 FOR PROSTHETIC HEART VALVE REPLACEMENT2.5-3.5 RECURRENT THROMBOSIS Laboratory - Chemistry and C hemistry - challengeon 02-17-2024 Albumin [Mass/Vol] 3.6 g/dL 3.4-5.0 [facility] ALP [Catalytic activity/Vol] 347 U/L High 46-116 [facility] ALT [Catalytic activity/Vol] 26 U/L 14-59 [facility] AST [Catalytic activity/Vol] 43 U/L High 15-37 [facility] Bilirubin [Mass/Vol] 0.8 mg/dL 0.2-1.0 [facility] Calcium [Mass/Vol] 8.9 mg/dL 8.5-10.1 [facility] Chloride [Moles/Vol] 100 mmol/L 98-107 [facility] CO2 [Moles/Vol] 24.8 mmol/L 21.0-32.0 [facility] Creatinine [Mass/Vol] 1.13 mg/dL High 0.55-1.02 [facility] GFR/1.73 sq M.predicted MDRD (S/P/Bld) [Vol rate/Area] mL/min/{1.73_m2} >=60 [facility] Glucose [Mass/Vol] 112 mg/dL High 74-106 [facility] Potassium [Moles/Vol] 3.6 mmol/L 3.5-5.1 [facility] Protein [Mass/Vol] 7.9 g/dL 6.4-8.2 [facility] Sodium [Moles/Vol] 134 mmol/L Low 136-145 [facility] Urea nitrogen [Mass/Vol] 21.0 mg/dL High 7.0-18.0 [facility] Urea nitrogen/Creatinine [Mass ratio] 18.6 mg/mg [facility] Laboratory - Hematology and Cell countson 02-17-2024 Immature granulocytes/100 WBC (Bld) 0.2 % 0.0-0.5 [facility] Leukocytes [#/volume] correc janis for nucleated erythrocytes in Blood by Automated counon 02-17-2024 WBC corrected for nucl RBC Auto (Bld) [#/Vol] 8.9 10 3/uL 4.0-11.0 [facility] Lymphocytes Auto (Bld) [#/Vo l]on 02-17-2024 Lymphocytes (Bld) [#/Vol] 1.8 10 3/uL 1.2-3.8 [facility] Lymphocytes/100 WBC Auto (Bl d)on 02-17-2024 Lymphocytes/100 WBC (Bld) 20.1 % Low 20.5-60.0 [facility] MCH Auto (RBC) [Entitic mass ]on 02-17-2024 MCH (RBC) [Entitic mass] 19.1 pg Low 26.7-34.0 [facility] MCHC Auto (RBC) [Mass/Vol]on 02-17-2024 MCHC (RBC) [Mass/Vol] 28.2 g/dL Low 29.9-35.2 [facility] MCV Auto (RBC) [Entitic vol] on 02-17-2024 MCV (RBC) [Entitic vol] 67.8 fL Low 81.0-99.0 [facility] Monocytes Auto (Bld) [#/Vol] on 02-17-2024 Monocytes (Bld) [#/Vol] 1.0 10 3/uL High 0.3-0.8 [facility] Monocytes/100 WBC Auto (Bld) on 02-17-2024 Monocytes/100 WBC (Bld) 10.9 % 1.7-12.0 [facility] Neutrophils Auto (Bld) [#/Vo l]on 02-17-2024 Neutrophils (Bld) [#/Vol] 5.9 10 3/uL 1.4-6.5 [facility] Neutrophils/100 WBC Auto (Bl d)on 02-17-2024 Neutrophils/100 WBC (Bld) 66.2 % 43.0-75.0 [facility] No Panel Informationon 02-16 Eosinophils # (Auto) 0.1 10 3/uL 0.0-0.7 [facility] Immature Granulocyte # (Auto) 0.02 10 3/uL 0.00-0.03 [facility] Troponin I High Sensitivity 24.6 pg/mL 4.0-51.3 [facility] Comment on above: CUT-OFF POINTS [...] volume (Bld) [Entitic vol] 10.5 fL 9.5-13.5 [facility] Platelets Auto (Bld) [#/Vol] on 02-17-2024 Platelets (Bld) [#/Vol] 289 10 3/uL 150-450 [facility] Prothrombin time (PT)on 01-29 PT Coag (PPP) [Time] 25.8 s High 9.0-11.6 [facility] RBC Auto (Bld) [#/Vol]on RBC (Bld) [#/Vol] 5.03 10 6/uL 4.20-5.40 [facility] Serum or plasma albumin/glob ulin mass ratioon 02-17-2024 Albumin/Globulin [Mass ratio] 0.8 {ratio} [facility] Serum or plasma anion gap de terminationon 02-17-2024 Anion gap [Moles/Vol] 12.8 mmol/L [facility] Activated partial thrombopla stin time (aPTT) in platelet poor plasma by coagulation aOrdered By: Tanner Mae on 01-24-2024 aPTT Coag (PPP) [Time] 19.2 s Low 25.1-36.5 [facility] Comment on above: A hematocrit value g reater than 55% may lead to inaccurate results in coagulation testing. Patients having hematocrit values >55% require a special collection tube for coagulation studies. Please contact the laboratory at [phone] for redraw instructions. Alanine aminotransferase [En zymatic activity/volume] in Serum or PlasmaOrdered By: Tanner Mae on 01-24-2024 ALT [Catalytic activity/Vol] 14 U/L Normal 7-52 [facility] Comment on above: Performed By: #### C K, BNP, HS TROP, PTT, PT #### [address] Albumin [Mass/volume] in Ser um or Plasma by Bromocresol green (BCG) dye binding methoOrdered By: Tanner Mae on 01-24-2024 Albumin BCG dye [Mass/Vol] 3.6 g/dL 3.5-5.7 [facility] Alkaline phosphatase [Enzyma tic activity/volume] in Serum or PlasmaOrdered By: Tanner Mae on 05-27-2024 ALP [Catalytic activity/Vol] 200 U/L High 34-104 [facility] Comment on above: Performed By: #### C K, BNP, HS TROP, PTT, PT #### [address] Anisocytosis [Presence] in B lood by Light microscopyOrdered By: Tanner Mae on 01-24-2024 Anisocytosis Ql (Bld) Slight Normal [facility] Comment on above: Performed By: #### C K, BNP, HS TROP, PTT, PT #### [facility] [address] [place] [address] Aspartate aminotransferase [ Enzymatic activity/volume] in Serum or PlasmaOrdered By: Tanner Mae on 01-24-2024 AST [Catalytic activity/Vol] 35 U/L Normal 13-39 [facility] Comment on above: Performed By: #### C K, BNP, HS TROP, PTT, PT #### [facility] [address] [place] [address] BNP ser/plasOrdered By: Brett Mae on 01-24-2024 Natriuretic peptide B (Bld) [Mass/Vol] 265.0 pg/mL High 5-100 [facility] Comment on above: Result Comment: PERF ORMED BY: [place] [address] PATHOLOGIST ENERGY CONSERVATION ENGINEER LILIANA CLAY M.D. Performed By: #### C K, BNP, HS TROP, PTT, PT #### [facility] [address] [place] [address] Basophils Auto (Bld) [#/Vol] Ordered By: Tanner Mae on 01-24-2024 Basophils (Bld) [#/Vol] N/A [facility] Basophils/100 WBC Auto (Bld) Ordered By: Tanner Mae on 01-24-2024 Basophils/100 WBC (Bld) N/A [facility] Basophils/100 leukocytes in Blood by Manual countOrdered By: Tanner Mae on 01-24-2024 Basophils/100 WBC (Bld) 1 % Normal 0-2 [facility] Comment on above: Performed By: #### C K, BNP, HS TROP, PTT, PT #### [address] Bilirubin.total [Mass/volume ] in Serum or PlasmaOrdered By: Tanner Mae on 01-24-2024 Bilirubin [Mass/Vol] 0.4 mg/dL Normal 0.3-1.0 [facility] Comment on above: Performed By: #### C K, BNP, HS TROP, PTT, PT #### [address] Jonah cells [Presence] in Blo od by Light microscopyOrdered By: Tanner Mae on 01-24-2024 Jonah cells LM Ql (Bld) Slight [facility] Calcium [Mass/volume] in Ser um or PlasmaOrdered By: Tanner Mae on 01-24-2024 Calcium [Mass/Vol] 8.7 mg/dL Normal 8.6-10.3 [facility] Comment on above: Performed By: #### C K, BNP, HS TROP, PTT, PT #### [address] Carbon dioxide, total [Moles /volume] in Serum or PlasmaOrdered By: Tanner Mae on 01-24-2024 CO2 [Moles/Vol] 23.7 mmol/L Normal 21.0-31.0 [facility] Comment on above: Performed By: #### C K, BNP, HS TROP, PTT, PT #### [address] Chloride [Moles/volume] in S daisy or PlasmaOrdered By: Tanner Mae on 01-24-2024 Chloride [Moles/Vol] 109 mmol/L High 98-107 [facility] Comment on above: Performed By: #### C K, BNP, HS TROP, PTT, PT #### [address] Comprehensive Metabolic Pane siddharth 01-24-2024 Albumin [Mass/Vol] 3.6 g/dL Normal 3.5-5.7 [facility] Comment on above: Performed By: #### C K, BNP, HS TROP, PTT, PT #### [address] Creatinine Clr Calc Pharmacy 54.24 Normal [facility] Comment on above: Result Comment: PERF ORMED BY: [place] [address] PATHOLOGIST ENERGY CONSERVATION ENGINEER LILIANA CLAY M.D. Performed By: #### C K, BNP, HS TROP, PTT, PT #### [address] GFR/1.73 sq M.predicted MDRD (S/P/Bld) [Vol rate/Area] mL/min/{1.73_m2} Normal [facility] Comment on above: Performed By: #### C K, BNP, HS TROP, PTT, PT #### [address] Creatine Kinaseon 01-24-2024 Creatine Kinase Normal 30-223 [facility] Comment on above: Result Comment: Unac ceptable specimen due to HEMOLYSIS. Redraw reordered. Performed By: #### C K, BNP, HS TROP, PTT, PT #### [address] Creatine kinase [Enzymatic a ctivity/volume] in Serum or PlasmaOrdered By: Tanner Mae on 01-24-2024 CK [Catalytic activity/Vol] 45 U/L Normal 30-223 [facility] Comment on above: Order Comment: REDRA W Result Comment: PERF ORMED BY: [place] [address] PATHOLOGIST ENERGY CONSERVATION ENGINEER LILIANA CLAY M.D. Performed By: #### C K, BNP, HS TROP, PTT, PT #### [place] [address] [place] Creatinine [Mass/volume] in Serum or PlasmaOrdered By: Tanner Mae on 01-24-2024 Creatinine [Mass/Vol] 1.00 mg/dL Normal 0.60-1.20 [facility] Comment on above: Performed By: #### C K, BNP, HS TROP, PTT, PT #### [address] Diff and CBCon 01-24-2024 Crenated RBC Slight Normal [facility] Comment on above: Performed By: #### C K, BNP, HS TROP, PTT, PT #### [address] Hypochromasia Moderate Normal [facility] Comment on above: Performed By: #### C K, BNP, HS TROP, PTT, PT #### [address] Macrocytosis Slight Normal [facility] Comment on above: Performed By: #### C K, BNP, HS TROP, PTT, PT #### [address] Mean Corpuscular HGB Conc 30.1 g/dL Low 32.0-35.0 [facility] Comment on above: Performed By: #### C K, BNP, HS TROP, PTT, PT #### [address] Microcytosis Slight Normal [facility] Comment on above: Performed By: #### C K, BNP, HS TROP, PTT, PT #### [address] Monocytes/100 WBC (Bld) 18.17 % Normal 0.00-20.00 [facility] Comment on above: Performed By: #### C K, BNP, HS TROP, PTT, PT #### [address] Ovalocytes Slight Normal [facility] Comment on above: Performed By: #### C K, BNP, HS TROP, PTT, PT #### [address] Platelet Estimate Normal Normal Normal [facility] Comment on above: Performed By: #### C K, BNP, HS TROP, PTT, PT #### [address] Platelet Morphology Normal Normal Normal [facility] Comment on above: Result Comment: PERF ORMED BY: [place] [address] PATHOLOGIST ENERGY CONSERVATION ENGINEER LILIANA CLAY M.D. Performed By: #### C K, BNP, HS TROP, PTT, PT #### [address] Poikilocytosis Moderate Normal [facility] Comment on above: Performed By: #### C K, BNP, HS TROP, PTT, PT #### [address] Polychromasia Slight Normal [facility] Comment on above: Performed By: #### C K, BNP, HS TROP, PTT, PT #### [address] Stomatocytes Slight Normal [facility] Comment on above: Performed By: #### C K, BNP, HS TROP, PTT, PT #### [address] Target Cells Slight Normal [facility] Comment on above: Performed By: #### C K, BNP, HS TROP, PTT, PT #### [address] Tear Drop Cells Slight Normal [facility] Comment on above: Performed By: #### C K, BNP, HS TROP, PTT, PT #### [address] ECG 12 lead ECGon 01-24-2024 ECG 12 lead ECG [facility] [place] [address] [place] [address] Electrocardiograph Report Signed Patient: Essence Vincent MR#: [id number] : 1970 Acct:[id number] Age/Sex: 53 / F ADM Date: 01/24/24 Loc: ER Room: Type: [facility] ER Attending Dr: Ordering Provider: Tanner [...] Atrial flutter Confirmed by TANNER MAE MD ([id number]) on 01/25/2024 5:26:09 AM Referred By: Electronically Signed By:TANNER MAE MD Transcribed By: MUS Signed By Tanner Mae Jr, MD [id number] Normal [facility] Eosinophils Auto (Bld) [#/Vo l]Ordered By: Tanner Mae on 01-24-2024 Eosinophils (Bld) [#/Vol] N/A [facility] Eosinophils/100 WBC Auto (Bl d)Ordered By: Tanner Mae on 01-24-2024 Eosinophils/100 WBC (Bld) N/A [facility] Eosinophils/100 leukocytes i n Blood by Manual countOrdered By: Tanner Mae on 01-24-2024 Eosinophils/100 WBC (Bld) 1 % Normal 1-3 [facility] Comment on above: Performed By: #### C K, BNP, HS TROP, PTT, PT #### [facility] [address] Erythrocyte distribution wid th [Ratio] by Automated countOrdered By: Tanner Mae on 01-24-2024 Erythrocyte distribution width (RBC) [Ratio] 22.3 % High 11.9-15.3 [facility] Comment on above: Performed By: #### C K, BNP, HS TROP, PTT, PT #### [facility] [address] Erythrocytes [#/volume] in B lood by Automated countOrdered By: Tanner Mae on 01-24-2024 RBC (Bld) [#/Vol] 4.94 10*6/uL Normal 3.60-5.00 [facility] Comment on above: Performed By: #### C K, BNP, HS TROP, PTT, PT #### [facility] [address] Glucose [Mass/volume] in Ser um or PlasmaOrdered By: Tanner Mae on 01-24-2024 Glucose [Mass/Vol] 86 mg/dL Normal 70-100 [facility] Comment on above: ADA recommended refe rence rangeRandom Glucose Reference Range is dependent on time and content of last meal. Glucose of more than 200 mg/dL in a nonstressed, ambulatory subject supports the diagnosis of Diabetes Mellitus. Result Comment: [place] om Glucose Reference Range is dependent on time and content of last meal. Glucose of more than 200 mg/dL in a nonstressed, ambulatory subject supports the diagnosis of Diabetes Mellitus. ADA recommended reference range Performed By: #### C K, BNP, HS TROP, PTT, PT #### [address] Hematocrit [Volume Fraction] of Blood by Automated countOrdered By: Tanner Mae on 01-24-2024 Hematocrit (Bld) [Volume fraction] 32.3 % Low 34.0-46.4 [facility] Comment on above: Performed By: #### C K, BNP, HS TROP, PTT, PT #### [facility] [address] [place] [address] Hemoglobin [Mass/volume] in BloodOrdered By: Tanner Mae on 01-24-2024 Hemoglobin (Bld) [Mass/Vol] 9.7 g/dL Low 11.8-15.4 [facility] Comment on above: Performed By: #### C K, BNP, HS TROP, PTT, PT #### [address] Hypochromia LM Ql (Bld)Order ed By: Tanner Mae on 01-24-2024 Hypochromia Ql (Bld) Moderate [facility] INR in Platelet poor plasma by Coagulation assayOrdered By: Tanner Mae on 01-24-2024 INR Coag (PPP) [Relative time] 1.0 {INR} Normal [facility] Comment on above: INR Therapeutic [...] K, BNP, HS TROP, PTT, PT #### [address] Leukocytes [#/volume] correc janis for nucleated erythrocytes in Blood by Automated counOrdered By: Tanner Mae on 01-24-2024 WBC corrected for nucl RBC Auto (Bld) [#/Vol] 10.2 10*3/uL 3.8-11.6 [facility] Leukocytes [#/volume] in Blo od by Automated countOrdered By: Tanner Mae on 01-24-2024 WBC (Bld) [#/Vol] 10.2 10*3/uL Normal 3.8-11.6 [facility] Comment on above: Performed By: #### C K, BNP, HS TROP, PTT, PT #### [address] Lymphocytes Auto (Bld) [#/Vo l]Ordered By: Tanner Mae on 01-24-2024 Lymphocytes (Bld) [#/Vol] N/A [facility] Lymphocytes/100 WBC Auto (Bl d)Ordered By: Tanner Mae on 01-24-2024 Lymphocytes/100 WBC (Bld) N/A [facility] Lymphocytes/100 leukocytes i n Blood by Manual countOrdered By: Tanner Mae on 01-24-2024 Lymphocytes/100 WBC (Bld) 22 % Normal 18-42 [facility] Comment on above: Performed By: #### C K, BNP, HS TROP, PTT, PT #### [address] [address] [place] MCH [Entitic mass] by Automa janis countOrdered By: Tanner Mae on 01-24-2024 MCH (RBC) [Entitic mass] 19.7 pg Low 24.7-34.3 [facility] Comment on above: Performed By: #### C K, BNP, HS TROP, PTT, PT #### [facility] [address] [place] [address] MCHC Auto (RBC) [Mass/Vol]Or dered By: Tanner Mae on 01-24-2024 MCHC (RBC) [Mass/Vol] 30.1 g/dL Low 32.0-35.0 [facility] MCV [Entitic volume] by Auto mated countOrdered By: Tanner Mea on 01-24-2024 MCV (RBC) [Entitic vol] 65.4 fL Low 80-100 [facility] Comment on above: Performed By: #### C K, BNP, HS TROP, PTT, PT #### [facility] [address] [place] [address] Macrocytes LM Ql (Bld)Ordere d By: Tanner Mae on 01-24-2024 Macrocytes Ql (Bld) Slight [facility] Manual blood segmented neutr ophils/100 leukocytesOrdered By: Tanner Mae on 01-24-2024 Segmented neutrophils/100 WBC (Bld) 69 % Normal 50-70 [facility] Comment on above: Performed By: #### C K, BNP, HS TROP, PTT, PT #### [facility] [address] [place] [address] Microcytes LM Ql (Bld)Ordere d By: Tanner Mae on 01-24-2024 Microcytes Ql (Bld) Slight [facility] Monocyte distribution width [Entitic volume] in Blood by AutomatedOrdered By: Tanner Mae on 01-24-2024 Monocyte distribution width Auto (Bld) [Entitic vol] 18.17 % 0.00-20.00 [facility] Monocytes Auto (Bld) [#/Vol] Ordered By: Tanner Mae on 01-24-2024 Monocytes (Bld) [#/Vol] N/A [facility] Monocytes/100 WBC Auto (Bld) Ordered By: Tanner Mae on 01-24-2024 Monocytes/100 WBC (Bld) N/A [facility] Monocytes/100 leukocytes in Blood by Manual countOrdered By: Tanner Mae on 01-24-2024 Monocytes/100 WBC (Bld) 8 % Normal 2-11 [facility] Comment on above: Performed By: #### C K, BNP, HS TROP, PTT, PT #### [facility] [address] Neutrophils Auto (Bld) [#/Vo l]Ordered By: Tanner Mae on 01-24-2024 Neutrophils (Bld) [#/Vol] N/A [facility] Neutrophils/100 WBC Auto (Bl d)Ordered By: Tanner Mae on 01-24-2024 Neutrophils/100 WBC (Bld) N/A [facility] No Panel InformationOrdered By: Tanner Mae on 01-24-2024 Estimated GFR (CKD-EPI) > 60.0 mL/Min [facility] Creatinine Clearance (Chem 54.24 [facility] Nucleated erythrocytes [Pres ence] in Blood by Automated countOrdered By: Tanner Mae on 01-24-2024 Nucleated RBC Auto Ql (Bld) N/A [facility] Ovalocyte detectionOrdered B y: Tanner Mae on 01-24-2024 Ovalocytes LM Ql (Bld) Slight [facility] Partial Thromboplastin Timeo n 01-24-2024 aPTT Coag (Bld) [Time] 19.2 s Low 25.1-36.5 [facility] Comment on above: Result Comment: A he matocrit value greater than 55% may lead to inaccurate results in coagulation testing. Patients having hematocrit values >55% require a special collection tube for coagulation studies. Please contact the laboratory at [phone] for redraw instructions. PERFORMED BY: [place] [id number] PATHOLOGIST ENERGY CONSERVATION ENGINEER LILIANA CLAY M.D. Performed By: #### C K, BNP, HS TROP, PTT, PT #### [facility] [address] [place], [place] [id number] [facility] Platelet adequacy [Presence] in Blood by Light microscopyOrdered By: Tanner Mae on 01-24-2024 Platelets LM Ql (Bld) Normal Normal [facility] Platelet mean volume [Entiti c volume] in Blood by Automated countOrdered By: Tanner Mae on 01-24-2024 Platelet mean volume (Bld) [Entitic vol] 9.1 fL Normal 6.3-10.7 [facility] Comment on above: Performed By: #### C K, BNP, HS TROP, PTT, PT #### [facility] [address] Platelet morphology finding [Identifier] in BloodOrdered By: Tanner Mae on 01-24-2024 Platelet morphology finding Nom (Bld) Normal Normal [facility] Platelets [#/volume] in Bloo d by Automated countOrdered By: Tanner Mae on 01-24-2024 Platelets (Bld) [#/Vol] 214 10*3/uL Normal 150-450 [facility] Comment on above: Performed By: #### C K, BNP, HS TROP, PTT, PT #### [facility] [address] [place] [address] [place] Poikilocytosis [Presence] in Blood by Light microscopyOrdered By: Tanner Mae on 01-24-2024 Poikilocytosis LM Ql (Bld) Moderate [facility] Polychromasia [Presence] in Blood by Light microscopyOrdered By: Tanner Mae on 01-24-2024 Polychromasia LM Ql (Bld) Slight [facility] Potassium [Moles/volume] in Serum or PlasmaOrdered By: Tanner Mae on 01-24-2024 Potassium [Moles/Vol] 3.5 mmol/L Normal 3.5-5.1 [facility] Comment on above: Performed By: #### C K, BNP, HS TROP, PTT, PT #### [facility] [address] [place] [address] [place] Protein [Mass/volume] in Ser um or PlasmaOrdered By: Tanner Mae on 01-24-2024 Protein [Mass/Vol] 6.6 g/dL Normal 6.4-8.9 [facility] Comment on above: Performed By: #### C K, BNP, HS TROP, PTT, PT #### [facility] [address] [place] [address] Prothrombin time (PT)Ordered By: Tanner Mae on 01-24-2024 PT Coag (PPP) [Time] 11.8 s Normal 9.0-12.9 [facility] Comment on above: A hematocrit value g reater than 55% may lead to inaccurate results in coagulation testing. Patients having hematocrit values >55% require a special collection tube for coagulation studies. Please contact the laboratory at [phone] for redraw instructions. Result Comment: A he matocrit value greater than 55% may lead to inaccurate results in coagulation testing. Patients having hematocrit values >55% require a special collection tube for coagulation studies. Please contact the laboratory at [phone] for redraw instructions. Performed By: #### C K, BNP, HS TROP, PTT, PT #### [address] RBC morphologyOrdered By: Isabella Mae on 01-24-2024 RBC morphology finding Nom (Bld) N/A [facility] Red blood cell stomatocyte d etectionOrdered By: Tanner Mae on 01-24-2024 Stomatocytes LM Ql (Bld) Slight [facility] Serum globulin measurement b y calculation (mass/volume)Ordered By: Tanner Mae on 01-24-2024 Globulin (S) [Mass/Vol] 3.0 g/dL Normal [facility] Comment on above: Performed By: #### C K, BNP, HS TROP, PTT, PT #### [facility] [address] [place] [address] Serum or plasma albumin/glob ulin mass ratioOrdered By: Tanner Mae on 01-24-2024 Albumin/Globulin [Mass ratio] 1.2 {ratio} Normal [facility] Comment on above: Performed By: #### C K, BNP, HS TROP, PTT, PT #### [facility] [address] [place] [address] Serum or plasma anion gap de terminationOrdered By: Tanner Mae on 01-24-2024 Anion gap [Moles/Vol] 12.8 mmol/L Normal 6.0-15.0 [facility] Comment on above: Performed By: #### C K, BNP, HS TROP, PTT, PT #### [address] Sodium [Moles/volume] in Ser um or PlasmaOrdered By: Tanner Mae on 01-24-2024 Sodium [Moles/Vol] 142 mmol/L Normal 136-145 [facility] Comment on above: Performed By: #### C K, BNP, HS TROP, PTT, PT #### [address] Target cellsOrdered By: Brett Mae on 01-24-2024 Target cells LM Ql (Bld) Slight [facility] Teardrop cell detectionOrder ed By: Tanner Mae on 01-24-2024 Dacrocytes LM Ql (Bld) Slight [facility] Troponin I High Sensitivityo n 01-24-2024 Troponin I High Sensitivity 13.2 pg/mL Normal 0.0-15.0 [facility] Comment on above: Result Comment: PERF ORMED BY: [place] [address] PATHOLOGIST ENERGY CONSERVATION ENGINEER LILIANA CLAY M.D. Performed By: #### C K, BNP, HS TROP, PTT, PT #### [address] Troponin I.cardiac [Mass/vol ume] in Serum or Plasma by Detection limit <= 0.01 ng/Ordered By: Tanner Mae on 01-24-2024 Troponin I.cardiac DL <= 0.01 ng/mL [Mass/Vol] 13.2 pg/mL 0.0-15.0 [facility] Urea nitrogen [Mass/volume] in Serum or PlasmaOrdered By: Tanner Mae on 01-24-2024 Urea nitrogen [Mass/Vol] 23 mg/dL Normal 7-25 [facility] Comment on above: Performed By: #### C K, BNP, HS TROP, PTT, PT #### [address] XR chest 1V portableon 01-23 XR chest 1V portable [facility] [place] [address] [place] [id number] XRay Report Signed Patient: Essence Vincent MR#: [id number] : 1970 Acct:[id number] Age/Sex: 53 / F ADM Date: 01/24/24 Loc: ER Room: Type: [facility] ER Attending Dr: Copies to: Tanner [...] Franklin Couch M.D.01/24/2024 11:31 AM Dictation Location: [place] [address] Transcribed By: [facility] 01/24/24 1131 Dictated By: Franklin Couch II, MD 01/24/24 1130 Signed By: 01/24/24 1131 Normal [facility] BUN, POCon 01-04-2024 Urea nitrogen [Mass/Vol] 22 mg/dL Normal - [facility] Creatinine w/GFR, POCon Creatinine [Mass/Vol] 0.7 mg/dL Normal 0.51-1.19 [facility] GFR/1.73 sq M.predicted among non-blacks MDRD (S/P/Bld) [Vol rate/Area] mL/min/{1.73_m2} Normal [facility] Comment on above: Result Comment: These [...] 01-04-2024 Glucose [Mass/Vol] 84 mg/dL Normal 74-100 [facility] Hgb/Hct, POCon 01-04-2024 Hematocrit (Bld) [Volume fraction] 40 % Normal 36-46 [facility] Hemoglobin (Bld) [Mass/Vol] 13.8 g/dL Normal 12.0-16.0 [facility] PT (Whole Blood)on Intl. Normal. Ratio 1.1 Normal [facility] Comment on above: Result Comment: Therapeutic Range: Moderate Anticoagulant Intensity: INR = 2.0-3.0 High Anticoagulant Intensity: INR = 2.5-3.5 PT Coag (PPP) [Time] 13.5 s Normal 10.4-14.2 [facility] Potassium (POC)on 01-04-2024 Potassium [Moles/Vol] 3.3 mmol/L Low 3.5-4.5 [facility] Sodium (POC)on 01-04-2024 Sodium [Moles/Vol] 142 mmol/L Normal 138-146 [facility] Protime-INRon 10-12-2023 INR Coag (Bld) [Relative time] 2 {INR} [employer] [email or web address] PT Coag (PPP) [Time] 24.1 s seconds [email or web address] [employer] Protime-INRon 10-11-2023 INR Coag (Bld) [Relative time] 1.8 {INR} [email or web address] PT Coag (PPP) [Time] 21.1 s seconds [facility] Basic Metab w/rfx MGon 02-08 -2024 GFR/1.73 sq M.predicted among non-blacks MDRD (S/P/Bld) [Vol rate/Area] mL/min/{1.73_m2} Normal >60 [facility] Comment on above: Result Comment: These results [...] By: #### C DP, BMPX, PT #### [facility] [address] [place] [address] [employer]: Mike Bill DO Potassium [Moles/Vol] 4.4 mmol/L Normal 3.7-5.3 [facility] Comment on above: Result Comment: SPEC IMEN SLIGHTLY HEMOLYZED, RESULTS MAY BE ADVERSELY AFFECTED. Performed By: #### C DP, BMPX, PT #### [facility] [address] [facility] [place] [address] [employer]: Mike Bill DO Anion gap [Moles/Vol] 12 mmol/L Normal 9-17 [facility] Comment on above: Performed By: #### C BIANCA BMPX, PT #### [facility]0 [facility] [place] [address] [employer]: Mike Bill DO Calcium [Mass/Vol] 9.2 mg/dL Normal 8.6-10.4 [facility] Comment on above: Performed By: #### C BIANCA, BMPX, PT #### [facility] [address] [facility] [place] [address] [employer] Operator: Mike Bill DO Chloride [Moles/Vol] 104 mmol/L Normal 98-107 [facility] Comment on above: Performed By: #### C DP, BMPX, PT #### [facility] [address] [place] [address] [employer]: Mike Bill DO CO2 [Moles/Vol] 24 mmol/L Normal 20-31 [facility] Comment on above: Performed By: #### C DP, BMPX, PT #### [facility] [address] [facility] [place] [address] [employer]: Mike Bill DO Creatinine [Mass/Vol] 1.0 mg/dL High 0.5-0.9 [facility] Comment on above: Performed By: #### C DP, BMPX, PT #### [facility]0 [address] [facility] [place] [address] [employer] Operator: Mike Bill DO Glucose [Mass/Vol] 96 mg/dL Normal 70-99 [facility] Comment on above: Performed By: #### C DP, BMPX, PT #### [facility] [address] [place] [address]. [place] [address] [employer]: Mike Bill DO Sodium [Moles/Vol] 140 mmol/L Normal 135-144 [facility] Comment on above: Performed By: #### C BIANCA, BMPX, PT #### [facility] [address] [place] [address]. [place] [address] [employer]: Mike Bill DO Urea nitrogen [Mass/Vol] 12 mg/dL Normal 6-20 [facility] Comment on above: Performed By: #### C DP, BMPX, PT #### [facility] [address] [place] [address]. [place] [address] [employer]: Mike Bill DO Basic Metabolic Panel w/ Ref sam to MGon 10-07-2023 Anion gap [Moles/Vol] 12 mmol/L 9 - 17 mmol/L [facility] Calcium [Mass/Vol] 9.2 mg/dL 8.6 - 10. 4 mg/dL [facility] Chloride [Moles/Vol] 104 mmol/L 98 - 10 7 mmol/L [facility] CO2 [Moles/Vol] 24 mmol/L 20 - 31 mmol/L [facility] Creatinine [Mass/Vol] 1.0 mg/dL High 0.5 - 0.9 mg/dL [facility] GFR/1.73 sq M.predicted MDRD (S/P/Bld) [Vol rate/Area] - PINF [facility] Comment on above: These results [...] mg/dL 70 - 99 mg/dL [facility] Interpretation and review of laboratory results Abnormal [facility] Potassium [Moles/Vol] 4.4 mmol/L 3.7 - 5.3 mmol/L [facility] Comment on above: SPECIMEN SLIGHTLY HE MOLYZED, RESULTS MAY BE ADVERSELY AFFECTED. Sodium [Moles/Vol] 140 mmol/L 135 - 144 mmol/L [facility] Urea nitrogen [Mass/Vol] 12 mg/dL 6 - 20 mg/dL [facility] CBC with Diffon 10-07-2023 Abs. Basophil 0.16 k/uL Normal 0.0-0.2 [facility] Comment on above: Performed By: #### C DP BMPX, PT #### [facility] [address] [place] [address] [employer]: Mike Bill DO Abs.Neutrophil (Seg) 5.03 k/uL Normal 1.3-9.1 [facility] Comment on above: Performed By: #### C DP, BMPX, PT #### [facility] [address] [facility] [place] [address] [employer]: Mike Bill DO Basophils/100 WBC (Bld) 2 % Normal 0-2 [facility] Comment on above: Performed By: #### C DP, BMPX, PT #### [facility] [address] [facility] [place] [address] [employer]: Mike Bill DO Eosinophils (Bld) [#/Vol] 0.08 10*3/uL Normal 0.0-0.4 [facility] Comment on above: Performed By: #### C DP, BMPX, PT #### [facility] [address] [place] [address]. [place] [address] [employer]: Mike Bill DO Eosinophils/100 WBC (Bld) 1 % Normal 0-4 [facility] Comment on above: Performed By: #### C DP, BMPX, PT #### [facility] [address] [place] [address]. [place] [address] [employer]: Mike Bill DO Lymphocytes (Bld) [#/Vol] 1.86 10*3/uL Normal 1.0-4.8 [facility] Comment on above: Performed By: #### C DP, BMPX, PT #### [facility] [address] [place] [address]. [place] [address] [employer]: Mike Bill DO Lymphocytes/100 WBC (Bld) 23 % Low 24-44 [facility] Comment on above: Performed By: #### C DP, BMPX, PT #### [facility] [address] [place] [address]. [place] [address] [employer]: Mike Bill DO Monocytes (Bld) [#/Vol] 0.97 10*3/uL Normal 0.1-1.3 [facility] Comment on above: Performed By: #### C DP, BMPX, PT #### [facility] [address] [facility] [place] [address] [employer] Operator: Mike Bill DO Monocytes/100 WBC (Bld) 12 % High 1-7 [facility] Comment on above: Performed By: #### C DP, BMPX, PT #### [facility] [address] [facility] [place] [address] [employer]: Mike Bill DO Morphology Jeffery (Bld) [Interp] MICROCYTOSIS PRESENT Normal [facility] Comment on above: Result Comment: HYPO CHROMIA PRESENT ANISOCYTOSIS PRESENT 1+ ACANTHOCYTES FEW ELLIPTOCYTES Performed By: #### C DP, BMPX, PT #### [facility]0 [facility] [place] [address] [employer] Operator: Mike Bill DO Neutrophil (Seg) 62 % Normal 36-66 [facility] Comment on above: Performed By: #### C DP, BMPX, PT #### [facility] [place] [address] [employer]: Mike Bill DO Erythrocyte distribution width (RBC) [Ratio] 23.8 % High 11.5-14.9 [facility] Comment on above: Performed By: #### C DP, BMPX, PT #### [facility]0 [facility] [place] [address] [employer]: Mike Bill DO Hematocrit (Bld) [Volume fraction] 33.8 % Low 36-46 [facility] Comment on above: Performed By: #### C DP, BMPX, PT #### [facility] [place] [address] [employer] Operator: Mike Bill DO Hemoglobin (Bld) [Mass/Vol] 9.6 g/dL Low 12.0-16.0 [facility] Comment on above: Performed By: #### C DP, BMPX, PT #### [facility] [place] [address] [employer]: Mike Bill DO MCH (RBC) [Entitic mass] 18.1 pg Low 26-34 [facility] Comment on above: Performed By: #### C BIANCA, BMPX, PT #### [facility] [address] [place] [address] [employer]: Mike Bill DO MCHC (RBC) [Mass/Vol] 28.5 g/dL Low 31-37 [facility] Comment on above: Performed By: #### C DP, BMPX, PT #### [facility] [address] [place] [address] [employer]: Mike Bill DO MCV (RBC) [Entitic vol] 63.5 fL Low 80-100 [facility] Comment on above: Performed By: #### C BIANCA, BMPX, PT #### [facility] [address] [place] [address] [employer]: Mike Bill DO Platelet mean volume (Bld) [Entitic vol] 8.5 fL Normal 6.0-12.0 [facility] Comment on above: Performed By: #### C BIANCA, BMPX, PT #### [facility] [address] [place] [address] [employer]: Mike Bill DO Platelets (Bld) [#/Vol] 214 10*3/uL Normal 150-450 [facility] Comment on above: Performed By: #### C DP, BMPX, PT #### [facility] [address] [place] [address] [employer]: Mike Bill DO RBC (Bld) [#/Vol] 5.32 10*6/uL High 4.0-5.2 [facility] Comment on above: Performed By: #### C LESA VALENZUELAX, PT #### [facility] [address] [place] [address] [employer]: Mike Bill DO WBC (Bld) [#/Vol] 8.1 10*3/uL Normal 3.5-11.0 [facility] Comment on above: Performed By: #### C BIANCA BMPX, PT #### [facility] [address] [facility] [place] [address] [employer]: Mike Bill DO CBC with auto differentialon 10-07-2023 Basophils (Bld) [#/Vol] 0.16 10*3/uL [facility] Basophils/100 WBC (Bld) 2 % 0 - 2 % [facility] Eosinophils (Bld) [#/Vol] 0.08 10*3/uL [facility] Eosinophils/100 WBC (Bld) 1 % 0 - 4 % [facility] Erythrocyte distribution width (RBC) [Ratio] 23.8 % High 11.5 - 14.9 % [facility] Hematocrit (Bld) [Volume fraction] 33.8 % Low 36 - 46 % [facility] Hemoglobin (Bld) [Mass/Vol] 9.6 g/dL Low 12.0 - 16.0 g/dL [facility] Interpretation and review of laboratory results Abnormal [facility] Lymphocytes/100 WBC (Bld) 23 % Low 24 - 44 % [facility] Lymphocytes/100 WBC (Bld) 1.86 % [facility] MCH (RBC) [Entitic mass] 18.1 pg Low 26 - 34 pg [facility] MCHC (RBC) [Mass/Vol] 28.5 g/dL Low 31 - 3 7 g/dL [facility] MCV (RBC) [Entitic vol] 63.5 fL Low 80 - 100 fL [facility] Monocytes/100 WBC (Bld) 12 % High 1 - 7 % [employer] [facility] Monocytes/100 WBC (Bld) 0.97 % [employer] [facility] Morphology Jeffery (Bld) [Interp] MICROCYTOSIS PRESENT [employer] [facility] Morphology Jeffery (Bld) [Interp] HYPOCHROMIA PRESENT [employer] [facility] Morphology Jeffery (Bld) [Interp] ANISOCYTOSIS PRESENT [employer] Morphology Jeffery (Bld) [Interp] 1+ ACANTHOCYTES FEW ELLIPTOCYTES [employer] [facility] Neutrophils/100 WBC (Bld) 62 % 36 - 66 % [employer] [facility] Platelet mean volume (Bld) [Entitic vol] 8.5 fL 6.0 - 12.0 fL [employer] [facility] Platelets (Bld) [#/Vol] 214 10*3/uL [employer] RBC (Bld) [#/Vol] 5.32 10*6/uL High 4.0 - 5.2 m/uL [employer] Segmented neutrophils/100 WBC (Bld) 5.03 % [employer] WBC other (Bld) [#/Vol] 8.1 Noah EKG 12 LeadOrdered By: Satish Whitman on 10-07-2023 Atrial Rate 80 BPM [employer] Work Phone: [phone] P [place] 108 degrees [employer] Work Phone: [phone] P-R Interval 268 ms [employer] Work Phone: [phone] Q-T Interval 478 ms [employer] Work Phone: [phone] QRS Duration 206 ms [employer] Work Phone: [phone] QTc Calculation (Bazett) 551 ms [employer] [facility] Work Phone: [phone] R [place] -72 degrees [employer] [facility] Work Phone: [phone] T [place] 98 degrees [employer] [facility] Work Phone: [phone] Ventricular Rate 80 BPM [email or web address] Work Phone: [phone] [employer] Work Phone: EKG 12 Leadon 10-07-2023 AV dual-paced rhythm with prolonged AV conduction Abnormal ECG When compared with ECG of 05-OCT-2023 19:31, (unconfirmed) No significant change was found [facility] Satish Valero MD - 10/07/2023 AV dual-paced rhythm with prolonged AV conduction Abnormal ECG When compared with ECG of 05-OCT-2023 19:31, (unconfirmed) No significant change was found [facility] PTon 10-07-2023 INR Coag (PPP) [Relative time] 1.1 {INR} Normal [facility] Comment on above: Result Comment: Therapeutic Range: Moderate Anticoagulant Intensity: INR = 2.0-3.0 High Anticoagulant Intensity: INR = 2.5-3.5 Performed By: #### C DP, BMPX, PT #### [facility] [address] [place] [address] [employer]: Mike Bill DO PT Coag (PPP) [Time] 14.9 s High 11.8-14.6 [facility] Comment on above: Performed By: #### C DP, BMPX, PT #### [facility] [address] [place] [address] [employer] Operator: Mike Bill DO Protime-INRon 10-07-2023 INR Coag (PPP) [Relative time] 1.1 {INR} [facility] Comment on above: Therapeutic Range: Moderate Anticoagulant Intensity: INR = 2.0-3.0 High Anticoagulant Intensity: INR = 2.5-3.5 Interpretation and review of laboratory results Abnormal [facility] PT Coag (PPP) [Time] 14.9 s High [facility] Basic Metab w/rfx MGon 10-06 Potassium [Moles/Vol] 4.3 mmol/L Normal 3.7-5.3 [facility] Comment on above: Result Comment: SPEC IMEN MODERATELY HEMOLYZED, RESULTS MAY BE ADVERSELY AFFECTED Performed By: #### B MPX ####[facility] [id number] [place] [address] Lab Director: Mike Bill DO Anion gap [Moles/Vol] 14 mmol/L Normal 9-17 [facility] Comment on above: Performed By: #### B MPX ####[facility] [id number], [place] [phone] Director: Mike Bill DO Calcium [Mass/Vol] 9.0 mg/dL Normal 8.6-10.4 [facility] Comment on above: Performed By: #### B MPX ####[facility] [id number], [place] [phone] Director: Mike Bill DO Chloride [Moles/Vol] 95 mmol/L Low 98-107 [facility] Comment on above: Performed By: #### B MPX ####[facility] [id number] [facility], [place] [phone] Director: Mike Bill DO CO2 [Moles/Vol] 23 mmol/L Normal 20-31 [facility] Comment on above: Performed By: #### B MPX ####[facility] [address] [facility], [place] [phone] Director: Mike Bill DO Creatinine [Mass/Vol] 1.2 mg/dL High 0.5-0.9 [facility] Comment on above: Performed By: #### B MPX ####[facility] [id number] [facility], [place] [phone] Director: Mike Bill DO GFR/1.73 sq M.predicted among non-blacks MDRD (S/P/Bld) [Vol rate/Area] 54 mL/min/{1.73_m2} Low >60 [facility] Comment on above: Result Comment: These results [...] tubular secretion. Performed By: #### B MPX ####[facility] [id number] [facility] [place] [address] Lab Director: Mike Bill DO Glucose [Mass/Vol] 97 mg/dL Normal 70-99 [facility] Comment on above: Performed By: #### B MPX ####[facility] [id number] [facility] [place] [address] Lab Director: Mike Bill DO Sodium [Moles/Vol] 132 mmol/L Low 135-144 [facility] Comment on above: Performed By: #### B MPX ####[facility] [id number] [facility] [place] [address] Lab Director: Mike Bill DO Urea nitrogen [Mass/Vol] 16 mg/dL Normal 6-20 [facility] Comment on above: Performed By: #### B MPX ####[facility] [id number] [facility] [place] [address] Lab Director: Mike Bill DO Basic Metabolic Panel w/ Ref sam to MGon 10-06-2023 Anion gap [Moles/Vol] 14 mmol/L 9 - 17 mmol/L [facility] Calcium [Mass/Vol] 9.0 mg/dL 8.6 - 10. 4 mg/dL [facility] Chloride [Moles/Vol] 95 mmol/L Low 98 - 10 7 mmol/L [facility] CO2 [Moles/Vol] 23 mmol/L 20 - 31 mmol/L [facility] Creatinine [Mass/Vol] 1.2 mg/dL High 0.5 - 0.9 mg/dL [facility] GFR/1.73 sq M.predicted MDRD (S/P/Bld) [Vol rate/Area] 54 mL/min/{1.73_m2} Low - PINF [facility] Comment on above: These results [...] [Mass/Vol] 97 mg/dL 70 - 99 mg/dL [facility] Interpretation and review of laboratory results Abnormal [facility] Potassium [Moles/Vol] 4.3 mmol/L 3.7 - 5.3 mmol/L [facility] Comment on above: SPECIMEN MODERATELY HEMOLYZED, RESULTS MAY BE ADVERSELY AFFECTED Sodium [Moles/Vol] 132 mmol/L Low 135 - 144 mmol/L [facility] Urea nitrogen [Mass/Vol] 16 mg/dL 6 - 20 mg/dL [facility] CBC with Diffon 10-06-2023 Abs. Basophil 0.13 k/uL Normal 0.0-0.2 [facility] Comment on above: Performed By: #### C DP PT, REJEC #### [facility] [address] [place], [place] [id number] [employer]: Mike Bill DO Abs.Neutrophil (Seg) 10.51 k/uL High 1.3-9.1 [facility] Comment on above: Performed By: #### C BIANCA PT, REJEC #### [facility] [address] [place] [address] [employer] Operator: Mike Bill DO Basophils/100 WBC (Bld) 1 % Normal 0-2 [facility] Comment on above: Performed By: #### C DP PT, REJEC #### [facility] [address] [place] [address] [employer] Operator: Mike Bill DO Eosinophils (Bld) [#/Vol] 0.00 10*3/uL Normal 0.0-0.4 [facility] Comment on above: Performed By: #### C DP, PT, REJEC #### [facility] [address] [facility] [place] [address] [employer]: Mike Bill DO Eosinophils/100 WBC (Bld) 0 % Normal 0-4 [facility] Comment on above: Performed By: #### C DP, PT, REJEC #### [facility] [address] [facility] [place] [address] [employer]: Mike Bill DO Lymphocytes (Bld) [#/Vol] 1.73 10*3/uL Normal 1.0-4.8 [facility] Comment on above: Performed By: #### C DP, PT, REJEC #### [facility] [place] [address] [employer]: Mike Bill DO Lymphocytes/100 WBC (Bld) 13 % Low 24-44 [facility] Comment on above: Performed By: #### C DP, PT, REJEC #### [facility] [place] [address] [employer]: Mike Bill DO Monocytes (Bld) [#/Vol] 0.93 10*3/uL Normal 0.1-1.3 [facility] Comment on above: Performed By: #### C DP, PT, REJEC #### [facility] [address] [facility] [place] [address] [employer]: Mike Bill DO Monocytes/100 WBC (Bld) 7 % Normal 1-7 [facility] Comment on above: Performed By: #### C DP, PT, REJEC #### [facility] [address] [place] [address] [employer]: Mike Bill DO Morphology Jeffery (Bld) [Interp] ANISOCYTOSIS PRESENT Normal [facility] Comment on above: Result Comment: HYPO CHROMIA PRESENT MICROCYTOSIS PRESENT 1+ ELLIPTOCYTES 1+ ECHINOCYTES FEW SCHISTOCYTES Performed By: #### C DP, PT, REJEC #### [facility] [address] [place] [address] [employer]: Mike Bill DO Neutrophil (Seg) 79 % High 36-66 [facility] Comment on above: Performed By: #### C DP, PT, REJEC #### [facility] [address] [place] [address]. [place] [address] [employer]: Mike Bill DO Erythrocyte distribution width (RBC) [Ratio] 23.8 % High 11.5-14.9 [facility] Comment on above: Performed By: #### C DP, PT, REJEC #### [facility] [place] [address] [employer]: Mike Bill DO Hematocrit (Bld) [Volume fraction] 38.6 % Normal 36-46 [facility] Comment on above: Performed By: #### C DP, PT, REJEC #### [facility] [place] [address] [employer]: Mike Bill DO Hemoglobin (Bld) [Mass/Vol] 10.9 g/dL Low 12.0-16.0 [facility] Comment on above: Performed By: #### C DP, PT, REJEC #### [facility] [address] [facility] [place] [address] [employer]: Mike Bill DO MCH (RBC) [Entitic mass] 18.1 pg Low 26-34 [facility] Comment on above: Performed By: #### C DP, PT, REJEC #### [facility] [place] [address] [employer] Operator: Mike Bill DO MCHC (RBC) [Mass/Vol] 28.1 g/dL Low 31-37 [facility] Comment on above: Performed By: #### C DP, PT, REJEC #### [facility] [address] [place] [address] [employer]: Mike Bill DO MCV (RBC) [Entitic vol] 64.3 fL Low 80-100 [facility] Comment on above: Performed By: #### C DP, PT, REJEC #### [facility] [address] [place] [address] [employer]: Mike Bill DO Platelet mean volume (Bld) [Entitic vol] 9.2 fL Normal 6.0-12.0 [facility] Comment on above: Performed By: #### C DP, PT, REJEC #### [facility] [address] [place] [address] [employer]: Mike Bill DO Platelets (Bld) [#/Vol] 226 10*3/uL Normal 150-450 [facility] Comment on above: Performed By: #### C DP, PT, REJEC #### [facility] [address] [place] [address] [employer]: Mike Bill DO RBC (Bld) [#/Vol] 6.01 10*6/uL High 4.0-5.2 [facility] Comment on above: Performed By: #### C DP, PT, REJEC #### [facility] [address] [place] [address] [employer]: Mike Bill DO WBC (Bld) [#/Vol] 13.3 10*3/uL High 3.5-11.0 [facility] Comment on above: Performed By: #### C DP, PT, REJEC #### [facility] [address] [place] [address] [employer]: Mike Bill DO CBC with auto differentialon 10-06-2023 Basophils (Bld) [#/Vol] 0.13 10*3/uL [facility] Basophils/100 WBC (Bld) 1 % 0 - 2 % [facility] Eosinophils (Bld) [#/Vol] 0.00 10*3/uL [facility] Eosinophils/100 WBC (Bld) 0 % 0 - 4 % [facility] Erythrocyte distribution width (RBC) [Ratio] 23.8 % High 11.5 - 14.9 % [facility] Hematocrit (Bld) [Volume fraction] 38.6 % 36 - 46 % [facility] Hemoglobin (Bld) [Mass/Vol] 10.9 g/dL Low 12.0 - 16.0 g/dL [facility] Interpretation and review of laboratory results Abnormal [facility] Lymphocytes/100 WBC (Bld) 13 % Low 24 - 44 % [facility] Lymphocytes/100 WBC (Bld) 1.73 % [facility] MCH (RBC) [Entitic mass] 18.1 pg Low 26 - 34 pg [facility] MCHC (RBC) [Mass/Vol] 28.1 g/dL Low 31 - 3 7 g/dL [facility] MCV (RBC) [Entitic vol] 64.3 fL Low 80 - 100 fL [facility] Monocytes/100 WBC (Bld) 7 % 1 - 7 % [facility] Monocytes/100 WBC (Bld) 0.93 % [facility] Morphology Jeffery (Bld) [Interp] ANISOCYTOSIS PRESENT [facility] Morphology Jeffery (Bld) [Interp] HYPOCHROMIA PRESENT [facility] Morphology Jeffery (Bld) [Interp] MICROCYTOSIS PRESENT [facility] Morphology Jeffery (Bld) [Interp] 1+ ELLIPTOCYTES [facility] Morphology Jeffery (Bld) [Interp] 1+ ECHINOCYTES [facility] Morphology Jeffery (Bld) [Interp] FEW SCHISTOCYTES [facility] Neutrophils/100 WBC (Bld) 79 % High 36 - 66 % [facility] Platelet mean volume (Bld) [Entitic vol] 9.2 fL 6.0 - 12.0 fL [facility] Platelets (Bld) [#/Vol] 226 10*3/uL [facility] RBC (Bld) [#/Vol] 6.01 10*6/uL High 4.0 - 5.2 m/uL [facility] Segmented neutrophils/100 WBC (Bld) 10.51 % High [facility] WBC other (Bld) [#/Vol] 13.3 High [facility] CT HEAD WO CONTRASTon 2023 CT HEAD [...] Kelechi Cuevas DO 10/05/23 Final result Normal [facility] CTA HEAD NECK W CONTRASTon 0 10-06-2023 [...] Brittney Lawson MD 10/05/23 Final result Normal [facility] K (Potassium)on 10-06-2023 Potassium [Moles/Vol] 3.4 mmol/L Low 3.7-5.3 [facility] Comment on above: Result Comment: SPEC IMEN MODERATELY HEMOLYZED, RESULTS MAY BE ADVERSELY AFFECTED Performed By: #### K , TSHX ####[facility] [address] [place] [address] Lab Director: Mike Bill DO PTon 10-06-2023 INR Coag (PPP) [Relative time] 1.1 {INR} Normal [facility] Comment on above: Result Comment: Therapeutic Range: Moderate Anticoagulant Intensity: INR = 2.0-3.0 High Anticoagulant Intensity: INR = 2.5-3.5 Performed By: #### C DP, PT, REJEC #### [facility] [address] [place] [address] [employer]: Mike Bill DO PT Coag (PPP) [Time] 14.7 s High 11.8-14.6 [facility] Comment on above: Performed By: #### C DP, PT, REJEC #### [facility] [address] [place] [address] [employer]: Mike Bill DO Path Review, Smearon 024 Pathologist review Pathologist comment (Bld) [Interp] ELECTRONICALLY SIGNED. ELENITA CARR M.D. [facility] Potassiumon 10-06-2023 Interpretation and review of laboratory results Abnormal [facility] Potassium [Moles/Vol] 3.4 mmol/L Low 3.7 - 5.3 mmol/L [facility] Comment on above: SPECIMEN MODERATELY HEMOLYZED, RESULTS MAY BE ADVERSELY AFFECTED [facility] [employer] Protime-INRon 10-06-2023 INR Coag (PPP) [Relative time] 1.1 {INR} [facility] Comment on above: Therapeutic Range: Moderate Anticoagulant Intensity: INR = 2.0-3.0 High Anticoagulant Intensity: INR = 2.5-3.5 Interpretation and review of laboratory results Abnormal [facility] PT Coag (PPP) [Time] 14.7 s High [facility] SURGICAL PATHOLOGY REPORTon 10-06-2023 Surgical Pathology Report [id number] [facility] ANATOMIC PATHOLOGY [address] [place] [address]. [place], [place] [address] SURGICAL PATHOLOGY CONSULTATION Patient Name: ESSENCE VINCENT MR#: [id number] Specimen #[id number] Procedures/Addenda PERIPHERAL BLOOD REPORT Date Ordered: 10/06/2023 [...] the electronic health record for CBC parameters ([id number], 10/05/2023, TIME UNKNOWN). PLATELETS: Platelets show normal morphology. LEUKOCYTES: White blood cells show normal morphology. No atypical lymphocytes. No dysplasia. There are no blasts. ERYTHROCYTES: Microcytic hypochromic anemia with moderate anisopoikilocytosis and elevated RBC count. Note: The electronic health record is reviewed. Elenita Carr M.D. Source: A: Peripheral Blood [facility] Smear to Pathologiston 10-06 Smear to Pathologist ELECTRONICALLY SIGN ED. ELENITA CARR M.D. [facility] Comment on above: Performed By: #### P T, TROPI, ALCB, CDP, MG, CP, RETCT ####[facility] [address] [place] [address] Lab Director: Mike Bill DO#### PATH ####[address] [place] [address] Lab Director: Heladio Lawson MD Specimen Rejectionon 024 Reason for rejection Unable to perform testing: Specimen hemolyzed. [facility] Comment on above: Performed By: #### C DP, PT, REJEC #### [facility] [address] [place] [address] [employer]: Mike Bill DO Source of sample .BLOOD Normal [facility] Comment on above: Performed By: #### C DP, PT, REJEC #### [facility] [address] [place] [address] [employer]: Mike Bill DO Test ordered BMPX [facility] Comment on above: Performed By: #### C DP, PT, REJEC #### [facility] [address] [place] [address] [employer]: Mike Bill DO TSH w/reflex to FT4on 2023 Thyroid Stim. Horm. 3.45 uIU/mL Normal 0.30-5.00 [facility] Comment on above: Performed By: #### K , TSHX ####[facility] [address] [place] [address] Lab Director: Mike Bill DO TSH with Reflexon 10-06-2023 TSH Qn 3.45 m[IU]/L [facility] Troponinon 10-06-2023 Troponin, High Sens 25 ng/L High 0-14 [facility] Comment on above: Result Comment: High Sensitivity Troponin values cannot be compared with other Troponin methodologies. Performed By: #### T KSENIA ####[facility] [id number] [place] [address] Lab Director: Mike Bill, CBC with Auto Differentialon 10-05-2023 Basophils (Bld) [#/Vol] 0.11 10*3/uL [facility] Basophils/100 WBC (Bld) 1 % 0 - 2 % [facility] Eosinophils (Bld) [#/Vol] 0.11 10*3/uL [facility] Eosinophils/100 WBC (Bld) 1 % 0 - 4 % [facility] Erythrocyte distribution width (RBC) [Ratio] 23.6 % High 11.5 - 14.9 % [facility] Hematocrit (Bld) [Volume fraction] 35.7 % Low 36 - 46 % [facility] Hemoglobin (Bld) [Mass/Vol] 10.5 g/dL Low 12.0 - 16.0 g/dL [facility] Interpretation and review of laboratory results Abnormal [facility] Lymphocytes/100 WBC (Bld) 20 % Low 24 - 44 % [facility] Lymphocytes/100 WBC (Bld) 2.16 % [facility] MCH (RBC) [Entitic mass] 18.1 pg Low 26 - 34 pg [facility] MCHC (RBC) [Mass/Vol] 29.4 g/dL Low 31 - 3 7 g/dL [facility] MCV (RBC) [Entitic vol] 61.7 fL Low 80 - 100 fL [facility] Monocytes/100 WBC (Bld) 11 % High 1 - 7 % [facility] Monocytes/100 WBC (Bld) 1.19 % [facility] Morphology Jeffery (Bld) [Interp] ANISOCYTOSIS PRESENT [facility] Morphology Jeffery (Bld) [Interp] MICROCYTOSIS PRESENT [facility] Morphology Jeffery (Bld) [Interp] HYPOCHROMIA PRESENT [facility] Morphology Jeffery (Bld) [Interp] ELLIPTOCYTES [facility] Morphology Jeffery (Bld) [Interp] ECHINOCYTES [facility] Morphology Jeffery (Bld) [Interp] STOMATOCYTES [facility] Neutrophils/100 WBC (Bld) 67 % High 36 - 66 % [facility] Platelet mean volume (Bld) [Entitic vol] 8.6 fL 6.0 - 12.0 fL [facility] Platelets (Bld) [#/Vol] 268 10*3/uL [facility] RBC (Bld) [#/Vol] 5.79 10*6/uL High 4.0 - 5.2 m/uL [facility] Segmented neutrophils/100 WBC (Bld) 7.23 % [facility] WBC other (Bld) [#/Vol] 10.8 [facility] CBC with Diffon 10-05-2023 Abs. Basophil 0.11 k/uL Normal 0.0-0.2 [facility] Comment on above: Performed By: #### P T, TROPI, ALCB, CDP, MG, CP, RETCT ####[facility] [address] [place] [address] Lab Director: Mike Bill DO#### PATH ####[address] [address] [facility] Director: Heladio Lawson MD Abs.Neutrophil (Seg) 7.23 k/uL Normal 1.3-9.1 [facility] Comment on above: Performed By: #### P T, TROPI, ALCB, CDP, MG, CP, RETCT ####[facility] [address] [place] [address] Lab Director: Mike Bill DO#### PATH ####[address] [address] lab Director: Heladio Lawson MD Basophils/100 WBC (Bld) 1 % Normal 0-2 [facility] Comment on above: Performed By: #### P T, TROPI, ALCB, CDP, MG, CP, RETCT ####[facility] [address] [place] [address] [facility] Director: Mike Bill DO#### PATH ####[address] [address] Lab Director: Heladio Lawson MD Eosinophils (Bld) [#/Vol] 0.11 10*3/uL Normal 0.0-0.4 [facility] Comment on above: Performed By: #### P T, TROPI, ALCB, CDP, MG, CP, RETCT ####[address] [address])[phone] Director: Mike Bill DO#### PATH ####[address] [address] Lab Director: Heladio Lawson MD Eosinophils/100 WBC (Bld) 1 % Normal 0-4 [facility] Comment on above: Performed By: #### P T, TROPI, ALCB, CDP, MG, CP, RETCT ####[address] [place], [place] [address])[phone] Director: Mike Bill DO#### PATH ####[address] [address] Lab Director: Heladio Lawson MD Lymphocytes (Bld) [#/Vol] 2.16 10*3/uL Normal 1.0-4.8 [facility] Comment on above: Performed By: #### P T, TROPI, ALCB, CDP, MG, CP, RETCT ####[facility] [address] [place] [address] Lab Director: Mike Bill DO#### PATH ####[address] [address] Lab Director: Heladio Lawson MD Lymphocytes/100 WBC (Bld) 20 % Low 24-44 [facility] Comment on above: Performed By: #### P T, TROPI, ALCB, CDP, MG, CP, RETCT ####[facility] [address] [place], [place] [phone] Director: Mike Bill DO#### PATH ####[address] [address] Lab Director: Heladio Lawson MD Monocytes (Bld) [#/Vol] 1.19 10*3/uL Normal 0.1-1.3 [facility] Comment on above: Performed By: #### P T, TROPI, ALCB, CDP, MG, CP, RETCT ####[facility] [address] [place] [address] Lab Director: Mike Bill DO#### PATH ####[address] [address] Lab Director: Heladio Lawson MD Monocytes/100 WBC (Bld) 11 % High 1-7 [facility] Comment on above: Performed By: #### P T, TROPI, ALCB, CDP, MG, CP, RETCT ####[facility] [address] [place] [address] Lab Director: Mike Bill DO#### PATH ####[address] [address] Lab Director: Heladio Lawson MD Morphology Jeffery (Bld) [Interp] ANISOCYTOSIS PRESENT Normal [facility] Comment on above: Result Comment: MICR OCYTOSIS PRESENT HYPOCHROMIA PRESENT ELLIPTOCYTES ECHINOCYTES STOMATOCYTES Performed By: #### P T, TROPI, ALCB, CDP, MG, CP, RETCT ####[facility] [address] [place], [place] [phone] Director: Mike Bill DO#### PATH ####[address] [address] [facility] Director: Heladio Lawson MD Neutrophil (Seg) 67 % High 36-66 [facility] Comment on above: Performed By: #### P T, TROPI, ALCB, CDP, MG, CP, RETCT ####[address] [place], [place] [id number])[phone] Director: Mike Bill DO#### PATH ####[address] [address] [facility] Director: Heladio Lawson MD Erythrocyte distribution width (RBC) [Ratio] 23.6 % High 11.5-14.9 [facility] Comment on above: Performed By: #### P T, TROPI, ALCB, CDP, MG, CP, RETCT ####[facility] [address] [place] [address] [facility] Director: Mike Bill DO#### PATH ####[address] [address] [facility] Director: Heladio Lawson MD Hematocrit (Bld) [Volume fraction] 35.7 % Low 36-46 [facility] Comment on above: Performed By: #### P T, TROPI, ALCB, CDP, MG, CP, RETCT ####[facility] [address] [place], [place] [phone] Director: Mike Bill DO#### PATH ####[address] [address] [facility] Director: Heladio Lawson MD Hemoglobin (Bld) [Mass/Vol] 10.5 g/dL Low 12.0-16.0 [facility] Comment on above: Performed By: #### P T, TROPI, ALCB, CDP, MG, CP, RETCT ####[facility] [address] [place] [address] [facility] Director: Mike Bill DO#### PATH ####[address] [address] [facility] Director: Heladio Lawson MD MCH (RBC) [Entitic mass] 18.1 pg Low 26-34 [facility] Comment on above: Performed By: #### P T, TROPI, ALCB, CDP, MG, CP, RETCT ####[address] [address] [facility] Director: Mike Bill DO#### PATH ####[address] [address] Lab Director: Heladio Lawson MD MCHC (RBC) [Mass/Vol] 29.4 g/dL Low 31-37 [facility] Comment on above: Performed By: #### P T, TROPI, ALCB, CDP, MG, CP, RETCT ####[facility] [address] [place] [address] [facility] Director: Mike Bill DO#### PATH ####[address] [address] Lab Director: Heladio Lawson MD MCV (RBC) [Entitic vol] 61.7 fL Low 80-100 [facility] Comment on above: Performed By: #### P T, TROPI, ALCB, CDP, MG, CP, RETCT ####[facility] [address] [place] [address] Lab Director: Mike Bill DO#### PATH ####[address] [place], [place] [phone] Director: Heladio Lawson MD Platelet mean volume (Bld) [Entitic vol] 8.6 fL Normal 6.0-12.0 [facility] Comment on above: Performed By: #### P T, TROPI, ALCB, CDP, MG, CP, RETCT ####[facility] [address] [place], [place] [address])[phone] Director: Mike Bill DO#### PATH ####[address] [address])[phone] Director: Heladio Lawson MD Platelets (Bld) [#/Vol] 268 10*3/uL Normal 150-450 [facility] Comment on above: Performed By: #### P T, TROPI, ALCB, CDP, MG, CP, RETCT ####[facility] [address] [place], [place] [address])[phone] Director: Mike Bill DO#### PATH ####[address] [address])[phone] Director: Heladio Lawson MD RBC (Bld) [#/Vol] 5.79 10*6/uL High 4.0-5.2 [facility] Comment on above: Performed By: #### P T, TROPI, ALCB, CDP, MG, CP, RETCT ####[facility] [address] [place], [place] [address])[phone] Director: Mike Bill DO#### PATH ####[address] [phone] Director: Heladio Lawson MD WBC (Bld) [#/Vol] 10.8 10*3/uL Normal 3.5-11.0 [facility] Comment on above: Performed By: #### P T, TROPI, ALCB, CDP, MG, CP, RETCT ####[facility] [address] [place] [address] lab Director: Mike Bill DO#### PATH ####[facility] [address] [place] [address] Lab Director: Heladio Lawson MD CT Head WO contraston 2023 1. Mild patchy periventricular and subcortical white matter changes. Findings are favored to represent chronic small vessel ischemic changes. If clinical concerns for acute ischemia, further assessment with MRI is recommended. 2. Otherwise, no acute findings. 3. Bifrontal distribution cortical atrophy is greater than expected for patient's age. [facility] EXAMINATION: CT OF THE HEAD WITHOUT CONTRAST [...] of the visualized skull or soft tissues. [facility] Kelechi Cuevas DO - 10/05/2023 EXAMINATION: [...] than expected for patient's age. [facility] Radiology Study observation (narrative) [facility] CT Head WO contrastOrdered B y: Kelechi Cuevas on 10-05-2023 [facility] Work Phone: CTA Head vessels and Neck ve ssels W contrast Noah 10-05-2023 1. No evidence of significant arterial stenosis or occlusion in the head or neck. 2. 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 3. Emphysema in the imaged lung apices. [facility] EXAMINATION: CTA OF THE HEAD [...] fluid collection. The mckeon-white differentiation is maintained. [facility] Brittney Roque MD - 10/05/2023 EXAMINATION: [...] in the imaged lung apices. [facility] Radiology Study observation (narrative) [facility] CTA Head vessels and Neck ve ssels W contrast IVOrdered By: Brittney Lawson on 10-05-2023 [facility] Work Phone: Comp Metabolic Profon 2023 Potassium [Moles/Vol] 2.2 mmol/L Critically low 3.7-5.3 [facility] Comment on above: Performed By: #### P T, TROPI, ALCB, CDP, MG, CP, RETCT ####[facility] [address] [place] [address] Lab Director: Mike Bill DO#### PATH ####[facility] [address] [place] [address] Lab Director: Heladio Lawson MD Albumin [Mass/Vol] 4.1 g/dL Normal 3.5-5.2 [facility] Comment on above: Performed By: #### P T, TROPI, ALCB, CDP, MG, CP, RETCT ####[facility] [address] [place], [place] [phone])[phone] Director: Mike Bill DO#### PATH ####[address] [phone] Director: Heladio Lawson MD Alkaline Phos 316 U/L High 35-104 [facility] Comment on above: Performed By: #### P T, TROPI, ALCB, CDP, MG, CP, RETCT ####[address] [address])[phone] Director: Mike Bill DO#### PATH ####[address] [address] Lab Director: Heladio Lawson MD ALT [Catalytic activity/Vol] 19 U/L Normal 5-33 [facility] Comment on above: Performed By: #### P T, TROPI, ALCB, CDP, MG, CP, RETCT ####[facility] [address] [place] [address] [facility] Director: Mike Bill DO#### PATH ####[address] [phone] Director: Heladio Lawson MD Anion gap [Moles/Vol] 19 mmol/L High 9-17 [facility] Comment on above: Performed By: #### P T, TROPI, ALCB, CDP, MG, CP, RETCT ####[facility] [address] [place], [place] [phone] Director: Mike Bill DO#### PATH ####[address] [address] Lab Director: Heladio Lawson MD AST [Catalytic activity/Vol] 55 U/L High <32 [facility] Comment on above: Performed By: #### P T, TROPI, ALCB, CDP, MG, CP, RETCT ####[facility] [address] [place], [place] [address])[phone] Director: Mike Bill DO#### PATH ####[address] [address] Lab Director: Heladio Lawson MD Bilirubin [Mass/Vol] 0.7 mg/dL Normal 0.3-1.2 [facility] Comment on above: Performed By: #### P T, TROPI, ALCB, CDP, MG, CP, RETCT ####[facility] [address] [place], [place] 53580419)[phone] Director: Mike Bill DO#### PATH ####[address] [address] Lab Director: Heladio Lawson MD Calcium [Mass/Vol] 9.7 mg/dL Normal 8.6-10.4 [facility] Comment on above: Performed By: #### P T, TROPI, ALCB, CDP, MG, CP, RETCT ####[facility] [address] [place], [place] [phone] Director: Mike Bill DO#### PATH ####[address] [address] Lab Director: Heladio Lawson MD Chloride [Moles/Vol] 96 mmol/L Low 98-107 [facility] Comment on above: Performed By: #### P T, TROPI, ALCB, CDP, MG, CP, RETCT ####[facility] [address] [facility], [place] [address])[phone] Director: Mike Bill DO#### PATH ####[address] [address] Lab Director: Heladio Lawson MD CO2 [Moles/Vol] 23 mmol/L Normal 20-31 [facility] Comment on above: Performed By: #### P T, TROPI, ALCB, CDP, MG, CP, RETCT ####[facility] [address] [place] [address] Lab Director: Mike Bill DO#### PATH ####[address] [address] Lab Director: Heladio Lawson MD Creatinine [Mass/Vol] 1.2 mg/dL High 0.5-0.9 [facility] Comment on above: Performed By: #### P T, TROPI, ALCB, CDP, MG, CP, RETCT ####[facility] [address] [place] [address] Lab Director: Mike Bill DO#### PATH ####[address] [address] Lab Director: Heladio Lawson MD GFR/1.73 sq M.predicted among non-blacks MDRD (S/P/Bld) [Vol rate/Area] 54 mL/min/{1.73_m2} Low >60 [facility] Comment on above: Result Comment: These results [...] T, TROPI, ALCB, CDP, MG, CP, RETCT ####[facility] [address] [place] [address] Lab Director: Mike Bill DO#### PATH ####[address] [address] Lab Director: Heladio Lawson MD Glucose [Mass/Vol] 181 mg/dL High 70-99 [facility] Comment on above: Performed By: #### P T, TROPI, ALCB, CDP, MG, CP, RETCT ####[facility] [address] [place], [place] [address])[phone] Director: Mike Bill DO#### PATH ####[address] [address] Lab Director: Heladio Lawson MD Protein [Mass/Vol] 8.1 g/dL Normal 6.4-8.3 [facility] Comment on above: Performed By: #### P T, TROPI, ALCB, CDP, MG, CP, RETCT ####[facility] [address] [place] [address] Lab Director: Mike Bill DO#### PATH ####[address] [address] Lab Director: Heladio Lawson MD Sodium [Moles/Vol] 138 mmol/L Normal 135-144 [facility] Comment on above: Performed By: #### P T, TROPI, ALCB, CDP, MG, CP, RETCT ####[facility] [address] [place] [address] Lab Director: Mike Bill DO#### PATH ####[address] [place] [address] Lab Director: Heladio Lawson MD Urea nitrogen [Mass/Vol] 17 mg/dL Normal 6-20 [facility] Comment on above: Performed By: #### P T, TROPI, ALCB, CDP, MG, CP, RETCT ####[facility] [address] [place] [address] Lab Director: Mike Bill DO#### PATH ####[facility] [address] [place] [address] Lab Director: Heladio Lawson MD Comprehensive Metabolic P[facility] 10-05-2023 Albumin [Mass/Vol] 4.1 g/dL 3.5 - 5.2 g/dL [facility] ALP [Catalytic activity/Vol] 316 U/L High 35 - 104 U/L [facility] ALT [Catalytic activity/Vol] 19 U/L 5 - 33 U/L [facility] Anion gap [Moles/Vol] 19 mmol/L High 9 - 17 mmol/L [facility] AST [Catalytic activity/Vol] 55 U/L High NINF - 32 U/L [facility] Bilirubin [Mass/Vol] 0.7 mg/dL 0.3 - 1 .2 mg/dL [facility] Calcium [Mass/Vol] 9.7 mg/dL 8.6 - 10. 4 mg/dL [facility] Chloride [Moles/Vol] 96 mmol/L Low 98 - 10 7 mmol/L [facility] CO2 [Moles/Vol] 23 mmol/L 20 - 31 mmol/L [facility] Creatinine [Mass/Vol] 1.2 mg/dL High 0.5 - 0.9 mg/dL [facility] GFR/1.73 sq M.predicted MDRD (S/P/Bld) [Vol rate/Area] 54 mL/min/{1.73_m2} Low - PINF [facility] Comment on above: These results [...] High 70 - 99 mg/dL [facility] Interpretation and review of laboratory results Abnormal [facility] Potassium [Moles/Vol] 2.2 mmol/L Critically low 3.7 - 5.3 mmol/L [facility] Protein [Mass/Vol] 8.1 g/dL 6.4 - 8.3 g/dL [facility] Sodium [Moles/Vol] 138 mmol/L 135 - 144 mmol/L [facility] Urea nitrogen [Mass/Vol] 17 mg/dL 6 - 20 mg/dL [facility] Drug Scr, Abuse, Uron 2023 Amphetamine(s),Ur Negative Normal NEG [facility] Comment on above: Result Comment: (Positive cutoff 1000 ng/mL) Performed By: #### U MICAO, UAX, INDIRA ####[facility] [id number] [place] [address] Lab Director: Mike Bill DO Barbiturate(s),Ur Positive Abnormal NEG [facility] Comment on above: Result Comment: (Positive cutoff 200 ng/mL) Performed By: #### U MICAO, UAX, INDIRA ####[facility] [id number] [place] [address] Lab Director: Mike Bill DO Benzodiazepine(s) Negative Normal NEG [facility] Comment on above: Result Comment: (Positive cutoff 200 ng/mL) Performed By: #### U MICAO, UAX, INDIRA ####[facility] [id number] [place] [address] lab Director: Mike Bill DO Cannabinoid(s),Ur Positive Abnormal NEG [facility] Comment on above: Result Comment: (Positive cutoff 50 ng/mL) Performed By: #### U MICAO, UAX, INDIRA ####[facility] [address] [facility] [place] [address] Lab Director: Mike Bill DO Cocaine Metabolite Negative Normal NEG [facility] Comment on above: Result Comment: (Positive cutoff 300 ng/mL) Performed By: #### U MICAO, UAX, INDIRA ####[facility] [address] [facility] [place] [address] Lab Director: Mike Bill DO Fentanyl, Urine Negative Normal NEG [facility] Comment on above: Result Comment: (Positive cutoff 5 ng/ml) Performed By: #### U MICAO, UAX, INDIRA ####[facility] [address] [place] [address].[place] [address] Lab Director: Mike Bill DO Interpretive Info Assay provides medic al screening only. The absence of expected drug(s) and/or Normal [facility] Comment on above: Result Comment: meta bolite(s) may indicate diluted or adulterated urine, limitations of testing or timing of collection. Testing for legal purposes should be confirmed by another method. To request confirmation of test result, please call the lab within 7 days of sample submission. Performed By: #### U MICAO, UAX, INDIRA ####[facility] [address] [place] [address].[place] [address] Lab Director: Mike Bill DO Methadone Ql (U) Negative Normal NEG [facility] Comment on above: Result Comment: (Positive cutoff 300 ng/mL) Performed By: #### U MICAO, UAX, INDIRA ####[facility] [id number] [facility] [place] [address] Lab Director: Mike Bill DO Opiate(s), Ur Negative Normal NEG [facility] Comment on above: Result Comment: (Positive cutoff 300 ng/mL) Performed By: #### U MICAO, UAX, INDIRA ####[facility] Udx[address] [place] [address] Lab Director: Mike Bill DO Oxycodone, Urine Negative Normal NEG [facility] Comment on above: Result Comment: (Positive cutoff 100 ng/mL) Performed By: #### U MICAO, UAX, INDIRA ####[facility] Xjk7787 [place] [address] Lab Director: Mike Bill DO Phencyclidine, Ur Negative Normal NEG [facility] Comment on above: Result Comment: (Positive cutoff 25 ng/mL) Performed By: #### U MICAO, UAX, INDIRA ####[facility] [id number] [place] [address] lab Director: Mike Bill DO ED Note-Physicianon 10-05-19 ED Note-Physician [id number] Normal [facility] Ethanolon 10-05-2023 Ethanol percent <0.010 % [facility] Ethanolamine [Mass/Vol] mg/dL NINF - 10 mg/dL [facility] Ethanol Alcoholon 10-05-2023 Ethanol [Mass/Vol] mg/dL Normal <10 [facility] Comment on above: Performed By: #### P T, TROPI, ALCB, CDP, MG, CP, RETCT ####[facility] [address]ph[address] [place] [address] Lab Director: Mike Bill DO#### PATH ####[address] [address] lab Director: Heladio Lawson MD Ethanol percent <0.010 Normal [facility] Comment on above: Performed By: #### P T, TROPI, ALCB, CDP, MG, CP, RETCT ####[facility] [address]bm[address] [place] [address] lab Director: Mike Bill DO#### PATH ####[facility] [address] [place] [address] lab Director: Heladio Lawson MD Magnesiumon 10-05-2023 Magnesium [Mass/Vol] 2.1 mg/dL Normal 1.6-2.6 [facility] Comment on above: Performed By: #### P T, TROPI, ALCB, CDP, MG, CP, RETCT ####[facility] [address] [place] [address] lab Director: Mike Bill DO#### PATH ####[facility] [address] [place], [place] [id number] lab Director: Heladio Lawson MD Magnesium [Mass/Vol] 2.1 mg/dL 1.6 - 2 .6 mg/dL [facility] Microscopic Urinalysison Bacteria LM Ql (Urine sed) FEW Abnormal None [facility] Casts LM.LPF (Urine sed) [#/Area] HYALINE Abnormal None /LPF [facility] Casts LM.LPF (Urine sed) [#/Area] 6 TO 9 Abnormal None /LPF [facility] Casts LM.LPF (Urine sed) [#/Area] FINE GRANULAR Abnormal None /LPF [facility] Casts LM.LPF (Urine sed) [#/Area] 10 TO 20 Abnormal None /LPF [facility] Epithelial cells LM.HPF (Urine sed) [#/Area] 10 TO 20 /HPF [facility] Interpretation and review of laboratory results Abnormal [facility] Mucus Ql (Urine sed) 1+ [facility] RBC LM.HPF (Urine sed) [#/Area] 3 to 5 Abnormal 0 TO 2 /HPF [facility] WBC LM.HPF (Urine sed) [#/Area] 6 TO 9 Abnormal 0 TO 5 /HPF [facility] No Panel Informationon 10-05 [facility] PTon 10-05-2023 INR Coag (PPP) [Relative time] 1.1 {INR} Normal [facility] Comment on above: Result Comment: Therapeutic Range: Moderate Anticoagulant Intensity: INR = 2.0-3.0 High Anticoagulant Intensity: INR = 2.5-3.5 Performed By: #### P T, TROPI, ALCB, CDP, MG, CP, RETCT ####[facility] [id number] [facility] [place] [address] [facility] Director: Mike Bill DO#### PATH ####[address] [address] lab Director: Heladio Lawson MD PT Coag (PPP) [Time] 14.5 s Normal 11.8-14.6 [facility] Comment on above: Performed By: #### P T, TROPI, ALCB, CDP, MG, CP, RETCT ####[facility] [address] [place] [address] lab Director: Mike Bill DO#### PATH ####[address] [address] lab Director: Heladio Lawson MD Portable XR Chest AP single viewon 10-05-2023 Cardiomegaly, with m ild pulmonary vascular congestion. [facility] CONSOLIDATED EXAMINATION: ONE XRAY VIEW OF THE [...] pneumothorax is identified. No acute osseous abnormality. [facility] RIS CONSOLIDATED Derrick Zapien MD - 10/05/2023 EXAMINATION: [...] IMPRESSION: Cardiomegaly, with mild pulmonary vascular congestion. [facility] Radiology Study observation (narrative) [facility] Portable XR Chest AP single viewOrdered By: Derrick Zapien on 10-05-2023 [facility] Work Phone: [employer] 10-05-2023 INR Coag (PPP) [Relative time] 1.1 {INR} [facility] Comment on above: Therapeutic Range: Moderate Anticoagulant Intensity: INR = 2.0-3.0 High Anticoagulant Intensity: INR = 2.5-3.5 PT Coag (PPP) [Time] 14.5 s [facility] Retic Counton 10-05-2023 Absolute Retic 0.069 M/uL Normal 0.0245-0.0 98 [facility] Comment on above: Performed By: #### P T, TROPI, ALCB, CDP, MG, CP, RETCT ####[facility] [id number] [facility] [place] [address] [facility] Director: Mike Bill DO#### PATH ####[facility] [address] [place] [address] lab Director: Heladio Lawson MD Retic Count 1.2 % Normal 0.5-2.0 [facility] Comment on above: Performed By: #### P T, TROPI, ALCB, CDP, MG, CP, RETCT ####[facility] [address] [place] [address] Lab Director: Mike Bill DO#### PATH ####[facility] [address] [place] [address] lab Director: Heladio Lawson MD Reticulocyteson 10-05-2023 Reticulocytes (Bld) [#/Vol] 0.069 10*3/uL [facility] Reticulocytes/100 RBC (Bld) 1.2 % 0.5 - 2.0 % [facility] Surgical Pathology Reporton 10-05-2023 Surgical Pathology Report (NOTE) [id number] [facility] ANATOMIC PATHOLOGY [address] [place] [address]. [place], [place] [address] SURGICAL PATHOLOGY CONSULTATION Patient Name: ESSENCE VINCENT MR#: [id number] Specimen #[id number] Procedures/Addenda PERIPHERAL BLOOD REPORT Date Ordered: 10/06/2023 [...] the electronic health record for CBC parameters ([id number], 10/05/2023, TIME UNKNOWN). PLATELETS: Platelets show normal morphology. LEUKOCYTES: White blood cells show normal morphology. No atypical lymphocytes. No dysplasia. There are no blasts. ERYTHROCYTES: Microcytic hypochromic anemia with moderate anisopoikilocytosis and elevated RBC count. Note: The electronic health record is reviewed. Elenita Carr M.D. Source: A: Peripheral Blood Normal [facility] Troponinon 10-05-2023 Interpretation and review of laboratory results Abnormal [facility] Troponin I.cardiac High sensitivity method [Mass/Vol] 25 ng/L High 0 - 14 ng/L [facility] Comment on above: High Sensitivity Tro ponin values cannot be compared with other Troponin methodologies. [facility] Troponin, High Sens 24 ng/L High 0-14 [facility] Comment on above: Result Comment: High Sensitivity Troponin values cannot be compared with other Troponin methodologies. Performed By: #### P T, TROPI, ALCB, CDP, MG, CP, RETCT ####[facility] [address] [place] [address] Lab Director: Mike Bill DO#### PATH ####[address] [address] Lab Director: Heladio Lawson MD Interpretation and review of laboratory results Abnormal [facility] Troponin I.cardiac High sensitivity method [Mass/Vol] 24 ng/L High 0 - 14 ng/L [facility] Comment on above: High Sensitivity Tro ponin values cannot be compared with other Troponin methodologies. [facility] UA w/Reflex Cultureon 2023 Bilirubin, SemiQt,Ur Negative Normal NEG [facility] Comment on above: Performed By: #### U MICAO, UAX, INDIRA ####[facility] [address] [place], [place] [phone] Director: Mike Bill DO Blood, Urine TRACE Abnormal NEG [facility] Comment on above: Performed By: #### U MICAO, UAX, INDIRA ####[facility] Nlw[address] [place] [address] Lab Director: Mike Bill DO Clarity (U) Clear Normal CLEAR [facility] Comment on above: Performed By: #### U MICAO, UAX, INDIRA ####[facility] Znu[address] [place] [address] Lab Director: Mike Bill DO Color (U) Dark Yellow Abnormal YEL [facility] Comment on above: Performed By: #### U MICAO, UAX, INDIRA ####[facility] [address] [facility] [place] [address] Lab Director: Mike Bill DO Glucose Ql (U) Negative Normal NEG [facility] Comment on above: Performed By: #### U MICAO, UAX, INDIRA ####[facility] [address] [place] [address] Lab Director: Mike Bill DO Ketones Ql (U) TRACE Abnormal NEG [facility] Comment on above: Performed By: #### U MICAO, UAX, INDIRA ####[address] [address] Lab Director: Mike Bill DO Leukocyte esterase Test strip Ql (U) TRACE Abnormal NEG [facility] Comment on above: Performed By: #### U MICAO, UAX, INDIRA ####[facility] [address] [place] [address] Lab Director: Mike Bill DO Nitrite,Ur Negative Normal NEG [facility] Comment on above: Performed By: #### U MICAO, UAX, INDIRA ####[facility] [address] [place] [address] Lab Director: Mike Bill DO PH,Ur 6.0 Normal 5.0-8.0 [facility] Comment on above: Performed By: #### U MICAO, UAX, INDIRA ####[facility] [address] [place] [address] Lab Director: Mike Bill DO Protein Ql (U) 1+ mg/dL Abnormal NEG [facility] Comment on above: Performed By: #### U MICAO, UAX, INDIRA ####[facility] Kfx[address] [facility] [place] [address] Lab Director: Mike Bill DO Spec. Brady,Ur 1.018 Normal 1.000-1.03 0 [facility] Comment on above: Performed By: #### U MICAO, UAX, INDIRA ####[facility] [id number] [facility] [place] [address] [facility] Director: Mike Bill DO Urobilinogen,Ur Normal Normal 0.0-1.0 [facility] Comment on above: Performed By: #### U MICAO, UAX, INDIRA ####[facility] [address]gt[address] [place] [address] lab Director: Mike Bill DO Urinalysis with Reflex to Cu ltureon 10-05-2023 Bilirubin Ql (U) Negative NEGATIVE [facility] Clarity (U) Clear Clear [facility] Color (U) Dark Yellow Abnormal Yellow [facility] Glucose Test strip (U) [Mass/Vol] Negative NEGATIVE mg/dL [facility] Hemoglobin Auto test strip Ql (U) TRACE Abnormal NEGATIVE [facility] Interpretation and review of laboratory results Abnormal [facility] Ketones (U) [Mass/Vol] TRACE Abnormal NEGAT ZULMA mg/dL [facility] Leukocyte esterase Test strip Ql (U) TRACE Abnormal NEGATIVE [facility] Nitrite Ql (U) Negative NEGATIVE [facility] pH (U) 6.0 [pH] 5.0 - 8.0 [facility] Protein (U) [Mass/Vol] 1+ Abnormal NEGAT ZULMA mg/dL [facility] Specific gravity (U) [Rel density] 1.018 1.000 - 1.030 [facility] Urobilinogen Qn (U) Normal 0.0 - 1. 0 EU/dL [facility] Urinalysis,Microon 4 Bacteria FEW Abnormal NONE [facility] Comment on above: Performed By: #### U MICAO, UAX, INDIRA ####[facility] [id number] [facility] [place] [address] Lab Director: iMke Bill DO Casts HYALINE Abnormal NONE [facility] Comment on above: Result Comment: 6 TO 9 FINE GRANULAR 10 TO 20 Performed By: #### U MICAO, UAX, INDIRA ####[facility] Ezg[address] [facility] [place] [address] Lab Director: Mike Bill DO Epithelial cells LM Ql (Urine sed) 10 TO 20 Normal [facility] Comment on above: Performed By: #### U MICAO, UAX, INDIRA ####[facility] [address] [place] [address].[place], [place] [phone] Director: Mike Bill DO Mucus Strands 1+ Normal [facility] Comment on above: Performed By: #### U MICAO, UAX, INDIRA ####[facility] [address] [facility] [place] [address] Lab Director: Mike Bill DO Urine RBC's 3 to 5 Abnormal 2 [facility] Comment on above: Performed By: #### U MICAO, UAX, INDIRA ####[facility] [address] [facility] [place] [address] Lab Director: Mike Bill DO Urine WBC's 6 TO [address] Comment on above: Performed By: #### U MICAO, UAX, INDIRA ####[facility] [address] [place] [address].[place], [place] [phone] Director: Mike Bill DO Urine Drug Screenon 10-05-19 24 Amphetamines Ql (U) Negative NEGATIVE [facility] Comment on above: (Positive cutoff 1000 ng/mL) Barbiturates Screen Ql (U) Positive Abnormal NEGATIVE [facility] Comment on above: (Positive cutoff 200 ng/mL) Benzodiazepines Ql (U) Negative NEGATIVE [facility] Comment on above: (Positive cutoff 200 ng/mL) Cannabinoids Screen Ql (U) Positive Abnormal NEGATIVE [facility] [email or web address] Comment on above: (Positive cutoff 50 ng/mL) Cocaine Ql (U) Negative NEGATIVE [facility] Comment on above: (Positive cutoff 300 ng/mL) fentaNYL Ql (U) Negative NEGATIVE [facility] [employer] Comment on above: (Positive cutoff 5 ng/ml) Interpretation and review of laboratory results Abnormal [facility] Methadone Ql (U) Negative NEGATIVE [facility] Comment on above: (Positive cutoff 300 ng/mL) Opiates Screen Ql (U) Negative NEGATIVE [facility] [email or web address] Comment on above: (Positive cutoff 300 ng/mL) oxyCODONE Ql (U) Negative NEGATIVE [facility] [employer] [facility] [employer] Comment on above: (Positive cutoff 100 ng/mL) Phencyclidine Ql (U) Negative NEGATIVE [facility] [email or web address] Comment on above: (Positive cutoff 25 ng/mL) Test Information Assay provides medic al screening only. The absence of expected drug(s) and/or metabolite(s) may indicate diluted or adulterated urine, limitations of testing or timing of collection. [employer] Comment on above: Testing for legal pu rposes should be confirmed by another method. To request confirmation of test result, please call the lab within 7 days of sample submission. [employer] XR CHEST PORTABLEon 10-05-19 24 XR CHEST [...] Derrick Zapien MD 10/05/23 Final result Normal [facility] Basic metabolic 2000 panelon 09-29-2023 Anion gap [Moles/Vol] 16 mmol/L 10 - 2 0 mmol/L [facility] Calcium [Mass/Vol] 9.3 mg/dL 8.6 - 10. 3 mg/dL [facility] Chloride [Moles/Vol] 100 mmol/L 98 - 10 7 mmol/L [facility] CO2 [Moles/Vol] 29 mmol/L 21 - 32 mmol/L [facility] Creatinine [Mass/Vol] 1.16 mg/dL High 0.50 - 1.05 mg/dL [facility] GFR/1.73 sq M.predicted among non-blacks MDRD (S/P/Bld) [Vol rate/Area] 56 mL/min/{1.73_m2} Low - PINF [facility] Comment on above: Calculations of yovanny mated GFR are performed using the 2020 CKD-EPI Study Refit equation without the race variable for the IDMS-Traceable creatinine methods. https://jasn.asnjournals.org/content/early/ASN.07981 73406 Glucose [Mass/Vol] 83 mg/dL 74 - 99 mg/dL [facility] Interpretation and review of laboratory results Abnormal [facility] Potassium [Moles/Vol] 3.7 mmol/L 3.5 - 5.3 mmol/L [facility] Sodium [Moles/Vol] 141 mmol/L 136 - 145 mmol/L [facility] Urea nitrogen [Mass/Vol] 33 mg/dL High 6 - 23 mg/dL [facility] Anion gap [Moles/Vol] 16 mmol/L Normal 10-20 [facility] Comment on above: Performed By: #### 2 4321-2 #### SHAQUILLE GOLDMAN ([id number]) [facility] ([facility]) [address] [place] [address] Calcium [Mass/Vol] 9.3 mg/dL Normal 8.6-10.3 [facility] Comment on above: Performed By: #### 2 4321-2 #### SHAQUILLE GOLDMAN ([id number]) [facility] ([facility]) [address] [place] [address] Chloride [Moles/Vol] 100 mmol/L Normal 98-107 [facility] Comment on above: Performed By: #### 2 4321-2 #### ANAIBELIISABELLA RODRIGUEZ SKYE ([id number]) [facility] ([facility]) [address] [place] [address] CO2 [Moles/Vol] 29 mmol/L Normal 21-32 [facility] Comment on above: Performed By: #### 2 4321-2 #### REGULOIBELIISABELLA GOLDMAN ([id number]) [facility] ([facility]) [address] [place] [address] Creatinine [Mass/Vol] 1.16 mg/dL High 0.50-1.05 [facility] Comment on above: Performed By: #### 2 4321-2 #### REGULOIBJULIO GOLDMAN ([id number]) [facility] ([facility]) [address] [place] [address] Glomerular filtration rate/1.73 sq M.predicted 56 mL/min/1.73m*2 Low >60 [facility] Comment on above: Result Comment: Calc ulations of estimated GFR are performed using the 2020 CKD-EPI Study Refit equation without the race variable for the IDMS-Traceable creatinine methods. https://jasn.asnjournals.org/content//ASN.69998 71558 Performed By: #### 2 4321-2 #### REGULOIBELIISABELLA DE LEONMICHAEL SKYE ([id number]) [facility] ([facility]) [address] [place] [address] Glucose [Mass/Vol] 83 mg/dL Normal 74-99 [facility] Comment on above: Performed By: #### 2 4321-2 #### REGULOIBELIISABELLA DE LEONMICHAEL SKYE ([id number]) [facility] ([facility]) [address] [place] [address] Potassium [Moles/Vol] 3.7 mmol/L Normal 3.5-5.3 [facility] Comment on above: Performed By: #### 2 4321-2 #### SHAQUILLE GOLDMAN ([id number]) [facility] ([facility]) [address] [place] [address] Sodium [Moles/Vol] 141 mmol/L Normal 136-145 [facility] Comment on above: Performed By: #### 2 4321-2 #### SHAQUILLE GOLDMAN ([id number]) [facility] ([facility]) [address] [place] [address] Urea nitrogen [Mass/Vol] 33 mg/dL High 6-23 [facility] Comment on above: Performed By: #### 2 4321-2 #### SHAQUILLE GOLDMAN ([id number]) [facility] ([facility]) [address] [place] [address] CBC panel Auto (Bld)on 09-29 Erythrocyte distribution width (RBC) [Ratio] 23.8 % High 11.5 - 14.5 % [facility] Hematocrit (Bld) [Volume fraction] 35.4 % Low 36.0 - 46.0 % [facility] Hemoglobin (Bld) [Mass/Vol] 9.8 g/dL Low 12.0 - 16.0 g/dL [facility] Interpretation and review of laboratory results Abnormal [facility] MCH (RBC) [Entitic mass] 17.9 pg Low 26.0 - 34.0 pg [facility] MCHC (RBC) [Mass/Vol] 27.7 g/dL Low 32.0 - 36.0 g/dL [facility] MCV (RBC) [Entitic vol] 65 fL Low 80 - 100 fL [facility] Nucleated RBC/100 WBC (Bld) [Ratio] 0.0 % [facility] Platelets (Bld) [#/Vol] 303 10*3/uL [facility] RBC (Bld) [#/Vol] 5.47 10*6/uL [facility] WBC (Bld) [#/Vol] 8.7 10*3/uL [facility] Erythrocyte distribution width (RBC) [Ratio] 23.8 % High 11.5-14.5 [facility] Comment on above: Performed By: #### 5 8410-2 #### SHAQUILLE GOLDMAN ([id number]) [facility] ([facility]) [address] [place] [address] Hematocrit (Bld) [Volume fraction] 35.4 % Low 36.0-46.0 [facility] Comment on above: Performed By: #### 5 8410-2 #### SHAQUILLE GOLDMAN ([id number]) [facility] ([facility]) [address] [place] [address] Hemoglobin (Bld) [Mass/Vol] 9.8 g/dL Low 12.0-16.0 [facility] Comment on above: Performed By: #### 5 8410-2 #### SHAQUILLE GOLDMAN ([id number]) [facility] ([facility]) [address] [place] [address] MCH (RBC) [Entitic mass] 17.9 pg Low 26.0-34.0 [facility] Comment on above: Performed By: #### 5 8410-2 #### SHAQUILLE GOLDMAN ([id number]) [facility] ([facility]) [address] [place] [address] MCHC (RBC) [Mass/Vol] 27.7 g/dL Low 32.0-36.0 [facility] Comment on above: Performed By: #### 5 8410-2 #### SHAQUILLE GOLDMAN ([id number]) [facility] ([facility]) [address] [place] [address] MCV (RBC) [Entitic vol] 65 fL Low 80-100 [facility] Comment on above: Performed By: #### 5 8410-2 #### SHAQUILLE GOLDMAN ([id number]) [facility] ([facility]) [address] [place] [address] Nucleated RBC/100 WBC (Bld) [Ratio] 0.0 /100 WBCs Normal 0.0-0.0 [facility] Comment on above: Performed By: #### 5 8410-2 #### SHAQUILLE GOLDMAN ([id number]) [facility] ([facility]) [address] [place] [address] Platelets (Bld) [#/Vol] 303 x10*3/uL Normal 150-450 [facility] Comment on above: Performed By: #### 5 8410-2 #### SHAQUILLE GOLDMAN ([id number]) [facility] ([facility]) [address] [place] [address] RBC (Bld) [#/Vol] 5.47 x10*6/uL High 4.00-5.20 [facility] Comment on above: Performed By: #### 5 8410-2 #### SHAQUILLE GOLDMAN ([id number]) [facility] ([facility]) [address] [place] [address] WBC (Bld) [#/Vol] 8.7 x10*3/uL Normal 4.4-11.3 [facility] Comment on above: Performed By: #### 5 8410-2 #### SHAQUILLE GOLDMAN ([id number]) [facility] ([facility]) [address] [place] [address] ECG 12-LEADon 09-29-2023 ECG 12-LEAD Ventricular Rate 80 Atrial Rate 79 QRS Duration 240 Q-T Interval 640 QTC Calculation(Bazett) 738 R [place] -75 T [place] 92 QRS Count 13 Q Onset 160 T Offset 480 QTC [place] 705 Diagnosis AV dual-paced rhythm Abnormal ECG When compared with ECG of 21-JAN-2022 17:39, No significant change was found Confirmed by Fly Sheldon ([id number]) on 09/29/2023 3:03:21 PM Normal [facility] Electrophysiology studyon [facility] Work Phone: No Panel Informationon 09-29 Extra Tube Hold for add-ons. [facility] Comment on above: Auto resulted. [facility] PT and aPTT panel Coag (PPP) on 09-29-2023 aPTT Coag (PPP) [Time] 25 s Low [facility] INR Coag (PPP) [Relative time] 1.0 {INR} 0.9 - 1.1 [facility] Interpretation and review of laboratory results Abnormal [facility] PT Coag (PPP) [Time] 11.1 s [facility] The APTT is no longe r used for monitoring Unfractionated Heparin Therapy. For monitoring Heparin Therapy, use the Heparin Assay. [facility] aPTT Coag (PPP) [Time] 25 s Low 27-38 [facility] Comment on above: Order Comment: The A PTT is no longer used for monitoring Unfractionated Heparin Therapy. For monitoring Heparin Therapy, use the Heparin Assay. Performed By: #### 3 4529-8 #### SHAQUILLE GOLDMAN ([id number]) [facility] ([facility] [address] [place] [address] INR Coag (PPP) [Relative time] 1.0 Normal 0.9-1.1 [facility] Comment on above: Order Comment: The A PTT is no longer used for monitoring Unfractionated Heparin Therapy. For monitoring Heparin Therapy, use the Heparin Assay. Performed By: #### 3 4529-8 #### SHAQUILLE GOLDMAN ([id number]) [facility] ([facility]) [address] [place] [address] PT Coag (PPP) [Time] 11.1 s Normal 9.8-12.8 [facility] Comment on above: Order Comment: The A PTT is no longer used for monitoring Unfractionated Heparin Therapy. For monitoring Heparin Therapy, use the Heparin Assay. Performed By: #### 3 4529-8 #### SHAQUILLE GOLDMAN ([id number]) [facility] ([facility]) [address] [place] [address] Cardiac Device Check - In Cl inicOrdered By: Margareth Nunez on 09-02-2023 [facility] Work Phone: Cardiac Device Check - In Cl inicon 09-02-2023 Radiology Study observation (narrative) [facility] Work Phone: CNPNon 08-03-2023 CNPN Telephone (EPSMN) ----- ESSENCE VINCENT ([id number]) 1970 F Date Time Provider Department 08/03/23 DAVID OSEI [facility] During your visit today, we recorded [...] Changeout Request EPS Lab Request: Device Patient: Esesnce Vincent Requested by: Maria Glover RN Requesting Physician: David Osei MD Procedure Physician: David Osei MD Procedure Requested: ICD change CPT: 13759 Multi Lead Date of Last HANDP? N/A Indications / Dx for Procedure: VT Procedure Time Frame: 1 month Estimated length of case: 1 HOUR Device Company: [employer] Patient: No Type of Bed: SHORTSTAY (4-8 HRS) Medication to be stopped(please specify medication/timeframe): TBD Amanda Lisa RN 08/03/2023 5:42 PM Signed Attempted to [...] for Visit: Schedule Surgery [1330] Cmt: EPS- PANCAKE PROFESSIONAL-D Change Out Prescriptions as of 08/27/2023 - [...] [I34.0] 07/16/2012 Pulmonary hypertension [I27.20] Dual chamber [employer]AL-D [Z95.810] 07/23/2020 Primary hypertension [I10] Nicotine use disorder [F17.200] Exercise-induced asthma [J45.990] Anemia [D64.9] 10/29/2011 07/23/2020 H/o GERD [K21.9] 07/23/2020 Migraines [G43.909] H/o Depression/Anxiety/Sleep disturbance [F32.* Preop testing [Z01.818] 07/08/2012 07/23/2020 SUMMARY (more content not included)... Normal [facility] 07-28-2023 CNPN Telephone (CARDMN) ----- ESSENCE VINCENT ([id number]) 1970 F Date Time Provider Department 07/28/23 DAVID OSEI During your visit today, we recorded the following information about you: Maria Glover, RN 07/28/2023 1:07 PM Addendum 07/28/23, 11:50 [...] are managed by this patient by: PATIENT Jaemel Mcmahon, PharmD asa LD 11-5- Problem List [...] [I34.0] 07/16/2012 Pulmonary hypertension [I27.20] Dual chamber [employer]ESSIONAL-D [Z95.810] 07/23/2020 Primary hypertension [I10] Nicotine use disorder [F17.200] Exercise-induced asthma [J45.990] Anemia [D64.9] 10/29/2011 07/23/2020 H/o GERD [K21.9] 07/23/2020 Migraines [G43.909] H/o Depression/Anxiety/Sleep disturbance [F32.* Preop testing [Z01.818] 07/08/2012 07/23/2020 SUMMARY [V999.95] 07/11/2012 07/23/2020 Pulmonary hypertension, moderate to severe (HCC*2012 Other acute postoperative pain [G89.18] 07/13/2012 07/16/2012 Pulmonary insuff [XBC4851] 07/13/2012 07/23/2020 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 [...] Status:Closed by MARIA GLOVER on 07/28/23 Normal [facility] ICD REMOTE CHECKon 3 AV Delay Adaptive Paced Minimum (ms) 350 ms [facility] AV Delay Adaptive Rate Maximum (bpm) 90 {beats}/min [facility] AV Delay Adaptive Rate Minimum (bpm) 75 {beats}/min [facility] AV Delay Adaptive Sensed Minimum (ms) 250 ms [facility] AV Delay Adaptive Status ENABLED [facility] AV Delay Paced (ms) 100 ms [facility] AV Delay Sensed (ms) 70 ms [facility] Battery Voltage 2.72 V [facility] Scott RA Pacing Amplitude (volts) 2 V [facility] RA Pacing Polarity BI [facility] RA Pacing Pulse Width (ms) 0.4 ms [facility] Scott RA Sensing Amplitude (mvolts) 0.3 mV [facility] Scott RA Sensing Blanking Period (ms) 150 ms [facility] Scott RA Sensing Polarity BI [facility] RA Sensing Refractory Period (ms) 250 ms [facility] Scott RV Pacing Amplitude (volts) 2.25 V [facility] RV Pacing Polarity BI [facility] RV Pacing Pulse Width (ms) 0.4 ms [facility] Scott RV Sensing Amplitude (mvolts) 0.3 mV [facility] Scott RV Sensing Blanking Period (ms) 200 ms [facility] Scott RV Sensing Polarity BI [facility] Detection Configuration (Vent) 2 - Zone [facility] FastVT_Detection Interval 450 ms [facility] FastVT_Therapy Configuration 2 ATP(s) + 0 Shock(s) [facility] ICD AFIB DetectionStatus DISABLED [facility] ICD ATAF DetectionInterval ms 450 ms [facility] ICD ATAF DetectionStatus ENABLED [facility] ICD ATAF TherapyConfiguration 2 ATP(s) + 0 Shock(s) [facility] ICD FastVT DetectionStatus ENABLED [facility] ICD-ADLRATE_BPM 85 {beats}/min [facility] ICD-AMS EPISODES 133 {beats}/min [facility] ICD-ATP Episodes (Vent) 0 [facility] ICD-ATRIALFIBRILLATION [address] [facility] ICD-ATRIALTACHYCARDIA 535 [facility] ICD-ATRIALTACHYCARDIA 18 [facility] ICD-ATRIALTACHYCARDIA 9 [facility] ICD-Counters Cleared Date 09/23/2016 [facility] ICD-Device Mfg MDT [facility] ICD-Fast Ventricular Tachycardia 9 [facility] ICD-LEADIMPEDANCEATRIA L 342 ohm [facility] ICD-Percent Pacing (Atrial) 76.76 % [facility] ICD-Percent Pacing (Vent) 95.69 % [facility] ICD-PMT Intervention ENABLED [facility] ICD-PVC Intervention ENABLED [facility] ICD-Rate Modulation Acceleration Reaction 30 s [facility] ICD-Rate Modulation Deceleration Exercise [facility] ICD-Rate Modulation [place] 3 [facility] ICD-Rate Modulation Threshold MediumHigh [facility] ICD-Shocks Aborted (Vent) 0 [facility] [id number] 0 [facility] ICD-SHOCKSABORTED 0 [facility] ICD-SHOCKSDELIVEREDVEN TRICULAR 0 [facility] ICD-Ventricular Fibrillation 0 [facility] Implant Date 07/03/2005 [facility] Implant Date 11/30/2002 [facility] Lead Impedance (LV) 4047 ohm [facility] Lead Impedance (RV) 779 ohm [facility] Lead Impedance High Voltage 59 ohm [facility] Lead1 Mfg MDT [facility] Lead2 Mfg MDT [facility] Lead3 Mfg GDT [facility] Location LV [facility] Location RA [facility] Location RV [facility] Lower Rate (bpm) 80 {beats}/min [facility] LV PACING % 0 % [facility] Max Sensor Rate (bpm) 90 {beats}/min [facility] MDT_PROG_TACHY_ZONE_DE TECTIONS_STATUS ENABLED [facility] Model [id number] Viva XT PANCAKE PROFESSIONAL-D [facility] Model 4196 Attain Ability MRI SureScan [facility] Model 5076 CapSureFix Novus [facility] Model 0144 [employer] Rx [facility] Pacing Mode DDDR [facility] Serial Number [id number] [facility] Serial Number [id number] [facility] Serial Number [id number] [facility] Serial Number [id number] [facility] Test Charge Energy 18 J [facility] Test Charge Time 5.525 [facility] Therapy Status (Vent) Enabled [facility] Thresh RA Capture Amplitude (volts) 0.625 V [facility] Thresh RA Capture Duration (ms) 0.4 ms [facility] Thresh RA Sensing Amplitude (mvolts) 1.625 mV [facility] Thresh RV Capture Amplitude (VOLTS) 1 V [facility] Thresh RV Capture Duration (MS) 0.4 ms [facility] Thresh RV Sensing Amplitude (MVOLTS) 11.625 mV [facility] Tracking Rate (bpm) 90 {beats}/min [facility] VF Zone Detection Interval 450 ms [facility] VF Zone Therapy Configuration 2 ATP(s) + 0 Shock(s) [facility] No Panel Informationon 07-28 BLANK _ [facility] ICD-ATRIALTACHYCARDIA 0 [facility] ICD-Fast Ventricular Tachycardia 0 [facility] Implant Date 09/23/2016 [facility] ED Note-Physicianon 07-05-20 ED Note-Physician [id number] Normal [facility] ED Note-Physician [id number] Normal [facility] ED Note-Physician [id number]#[id number] Normal [facility] Physician Referralon 023 Physician Referral [id number]:12 [id number] Normal [facility] ICD REMOTE CHECKon 3 AV Delay Adaptive Paced Minimum (ms) 350 ms [facility] AV Delay Adaptive Rate Maximum (bpm) 90 {beats}/min [facility] AV Delay Adaptive Rate Minimum (bpm) 75 {beats}/min [facility] AV Delay Adaptive Sensed Minimum (ms) 250 ms [facility] AV Delay Adaptive Status ENABLED [facility] AV Delay Paced (ms) 100 ms [facility] AV Delay Sensed (ms) 70 ms [facility] Battery Voltage 2.77 V [facility] Scott RA Pacing Amplitude (volts) 2 V [facility] RA Pacing Polarity BI [facility] RA Pacing Pulse Width (ms) 0.4 ms [facility] Scott RA Sensing Amplitude (mvolts) 0.3 mV [facility] Scott RA Sensing Blanking Period (ms) 150 ms [facility] RA Sensing Polarity BI [facility] Scott RA Sensing Refractory Period (ms) 250 ms [facility] Scott RV Pacing Amplitude (volts) 2.5 V [facility] RV Pacing Polarity BI [facility] RV Pacing Pulse Width (ms) 0.4 ms [facility] Scott RV Sensing Amplitude (mvolts) 0.3 mV [facility] Scott RV Sensing Blanking Period (ms) 200 ms [facility] Scott RV Sensing Polarity BI [facility] Detection Configuration (Vent) 2 - Zone [facility] FastVT_Detection Interval 450 ms [facility] FastVT_Therapy Configuration 2 ATP(s) + 0 Shock(s) [facility] ICD AFIB DetectionStatus DISABLED [facility] ICD ATAF DetectionInterval ms 450 ms [facility] ICD ATAF DetectionStatus ENABLED [facility] ICD ATAF TherapyConfiguration 2 ATP(s) + 0 Shock(s) [facility] ICD FastVT DetectionStatus ENABLED [facility] ICD-ADLRATE_BPM 85 {beats}/min [facility] ICD-AMS EPISODES 133 {beats}/min [facility] ICD-ATP Episodes (Vent) 0 [facility] ICD-ATRIALFIBRILLATION [address] [facility] ICD-ATRIALTACHYCARDIA 10 [facility] ICD-Counters Cleared Date 09/23/2016 [facility] ICD-Device Mfg MDT [facility] ICD-LEADIMPEDANCEATRIA L 361 ohm [facility] ICD-Percent Pacing (Atrial) 50.68 % [facility] ICD-Percent Pacing (Vent) 87.63 % [facility] ICD-PMT Intervention ENABLED [facility] ICD-PVC Intervention ENABLED [facility] ICD-Rate Modulation Acceleration Reaction 30 s [facility] ICD-Rate Modulation Deceleration Exercise [facility] ICD-Rate Modulation [place] 3 [facility] ICD-Rate Modulation Threshold MediumHigh [facility] ICD-Shocks Aborted (Vent) 0 [facility] [id number] 0 [facility] ICD-SHOCKSABORTED 0 [facility] ICD-SHOCKSDELIVEREDVEN TRICULAR 0 [facility] ICD-Ventricular Fibrillation 0 [facility] Implant Date 07/03/2005 [facility] Implant Date 11/30/2002 [facility] Lead Impedance (LV) 4047 ohm [facility] Lead Impedance (RV) 779 ohm [facility] Lead Impedance High Voltage 61 ohm [facility] Lead1 Mfg MDT [facility] Lead2 Mfg MDT [facility] Lead3 Mfg GDT [facility] Location LV [facility] Location RA [facility] Location RV [facility] Lower Rate (bpm) 80 {beats}/min [facility] LV PACING % 0 % [facility] Max Sensor Rate (bpm) 90 {beats}/min [facility] RENATO_PROG_TACHY_ZONE_DE TECTIONS_STATUS ENABLED [facility] Model [id number] Viva XT PANCAKE PROFESSIONAL-D [facility] Model 4196 Attain Ability MRI SureScan [facility] Model 5076 CapSureFix Novus [facility] Model 0144 [employer] Rx [facility] Pacing Mode DDDR [facility] Serial Number [id number] [facility] Serial Number [id number] [facility] Serial Number [id number] [facility] Serial Number [id number] [facility] Test Charge Energy 18 J [facility] Test Charge Time 5.145 [facility] Therapy Status (Vent) Enabled [facility] Thresh RA Capture Amplitude (volts) 0.625 V [facility] Thresh RA Capture Duration (ms) 0.4 ms [facility] Thresh RA Sensing Amplitude (mvolts) 2.875 mV [facility] Thresh RV Capture Amplitude (VOLTS) 1 V [facility] Thresh RV Capture Duration (MS) 0.4 ms [facility] Thresh RV Sensing Amplitude (MVOLTS) 6.875 mV [facility] Tracking Rate (bpm) 90 {beats}/min [facility] VF Zone Detection Interval 450 ms [facility] VF Zone Therapy Configuration 2 ATP(s) + 0 Shock(s) [facility] No Panel Informationon 05-06 BLANK _ [facility] ICD-ATRIALTACHYCARDIA 0 [facility] ICD-Fast Ventricular Tachycardia 0 [facility] Implant Date 09/23/2016 [facility] ICD REMOTE CHECKon 3 AV Delay Adaptive Paced Minimum (ms) 350 ms [facility] AV Delay Adaptive Rate Maximum (bpm) 90 {beats}/min [facility] AV Delay Adaptive Rate Minimum (bpm) 75 {beats}/min [facility] AV Delay Adaptive Sensed Minimum (ms) 250 ms [facility] AV Delay Adaptive Status ENABLED [facility] AV Delay Paced (ms) 100 ms [facility] AV Delay Sensed (ms) 70 ms [facility] Battery Voltage 2.77 V [facility] Scott RA Pacing Amplitude (volts) 2 V [facility] Scott RA Pacing Polarity BI [facility] RA Pacing Pulse Width (ms) 0.4 ms [facility] Scott RA Sensing Amplitude (mvolts) 0.3 mV [facility] Scott RA Sensing Blanking Period (ms) 150 ms [facility] Scott RA Sensing Polarity BI [facility] Scott RA Sensing Refractory Period (ms) 250 ms [facility] Scott RV Pacing Amplitude (volts) 2.75 V [facility] RV Pacing Polarity BI [facility] Scott RV Pacing Pulse Width (ms) 0.4 ms [facility] Scott RV Sensing Amplitude (mvolts) 0.3 mV [facility] Scott RV Sensing Blanking Period (ms) 200 ms [facility] Scott RV Sensing Polarity BI [facility] Detection Configuration (Vent) 2 - Zone [facility] FastVT_Detection Interval 450 ms [facility] FastVT_Therapy Configuration 2 ATP(s) + 0 Shock(s) [facility] ICD AFIB DetectionStatus DISABLED [facility] ICD ATAF DetectionInterval ms 450 ms [facility] ICD ATAF DetectionStatus ENABLED [facility] ICD ATAF TherapyConfiguration 2 ATP(s) + 0 Shock(s) [facility] ICD FastVT DetectionStatus ENABLED [facility] ICD-ADLRATE_BPM 85 {beats}/min [facility] ICD-AMS EPISODES 133 {beats}/min [facility] ICD-ATP Episodes (Vent) 0 [facility] ICD-ATRIALFIBRILLATION [address] [facility] [address] [facility] ICD-ATRIALTACHYCARDIA 4 [facility] ICD-Counters Cleared Date 09/23/2016 [facility] ICD-Device Emilyg T [facility] ICD-LEADIMPEDANCEATRIA L 342 ohm [facility] ICD-Percent Pacing (Atrial) 46.68 % [facility] ICD-Percent Pacing (Vent) 90.31 % [facility] ICD-PMT Intervention ENABLED [facility] ICD-PVC Intervention ENABLED [facility] ICD-Rate Modulation Acceleration Reaction 30 s [facility] ICD-Rate Modulation Deceleration Exercise [facility] ICD-Rate Modulation [place] 3 [facility] ICD-Rate Modulation Threshold MediumHigh [facility] ICD-Shocks Aborted (Vent) 0 [facility] [id number] 0 [facility] ICD-SHOCKSABORTED 0 [facility] ICD-SHOCKSDELIVEREDVEN TRICULAR 0 [facility] ICD-Ventricular Fibrillation 0 [facility] Implant Date 07/03/2005 [facility] Implant Date 11/30/2002 [facility] Lead Impedance (LV) 4047 ohm [facility] Lead Impedance (RV) 760 ohm [facility] Lead Impedance High Voltage 64 ohm [facility] Lead1 Emilyg MDT [facility] Lead2 Emilyg MDT [facility] Lead3 Mfg GDT [facility] Location LV [facility] Location RA [facility] Location RV [facility] Lower Rate (bpm) 80 {beats}/min [facility] LV PACING % 0 % [facility] Max Sensor Rate (bpm) 90 {beats}/min [facility] MDT_PROG_TACHY_ZONE_DE TECTIONS_STATUS ENABLED [facility] Model [id number] Viva XT PANCAKE PROFESSIONAL-D [facility] Model 4196 Attain Ability MRI SureScan [facility] Model 5076 CapSureFix Novus [facility] Model 0144 [employer] Rx [facility] Pacing Mode DDDR [facility] Serial Number [id number] [facility] Serial Number [id number] [facility] Serial Number [id number] [facility] Serial Number [id number] [facility] Test Charge Energy 18 J [facility] Test Charge Time 5.145 [facility] Therapy Status (Vent) Enabled [facility] Thresh RA Capture Amplitude (volts) 0.625 V [facility] Thresh RA Capture Duration (ms) 0.4 ms [facility] Thresh RA Sensing Amplitude (mvolts) 2.5 mV [facility] Thresh RV Capture Amplitude (VOLTS) 1.375 V [facility] Thresh RV Capture Duration (MS) 0.4 ms [facility] Thresh RV Sensing Amplitude (MVOLTS) 7.5 mV [facility] Tracking Rate (bpm) 90 {beats}/min [facility] VF Zone Detection Interval 450 ms [facility] VF Zone Therapy Configuration 2 ATP(s) + 0 Shock(s) [facility] No Panel Informationon 04-22 BLANK _ [facility] ICD-ATRIALTACHYCARDIA 0 [facility] ICD-Fast Ventricular Tachycardia 0 [facility] Implant Date 09/23/2016 [facility] ICD REMOTE CHECKon 3 AV Delay Adaptive Paced Minimum (ms) 350 ms [facility] AV Delay Adaptive Rate Maximum (bpm) 90 {beats}/min [facility] AV Delay Adaptive Rate Minimum (bpm) 75 {beats}/min [facility] AV Delay Adaptive Sensed Minimum (ms) 250 ms [facility] AV Delay Adaptive Status ENABLED [facility] AV Delay Paced (ms) 100 ms [facility] AV Delay Sensed (ms) 70 ms [facility] Battery Voltage 2.78 V [facility] Scott RA Pacing Amplitude (volts) 2 V [facility] RA Pacing Polarity BI [facility] RA Pacing Pulse Width (ms) 0.4 ms [facility] Scott RA Sensing Amplitude (mvolts) 0.3 mV [facility] Scott RA Sensing Blanking Period (ms) 150 ms [facility] Scott RA Sensing Polarity BI [facility] Scott RA Sensing Refractory Period (ms) 250 ms [facility] Scott RV Pacing Amplitude (volts) 3 V [facility] RV Pacing Polarity BI [facility] [facility] Pacing Pulse Width (ms) 0.4 ms [facility] Sensing Amplitude (mvolts) 0.3 mV [facility] Sensing Blanking Period (ms) 200 ms [facility] Sensing Polarity BI [facility] Detection Configuration (Vent) 2 - Zone [facility] FastVT_Detection Interval 450 ms [facility] FastVT_Therapy Configuration 2 ATP(s) + 0 Shock(s) [facility] ICD AFIB DetectionStatus DISABLED [facility] ICD ATAF DetectionInterval ms 450 ms [facility] ICD ATAF DetectionStatus ENABLED [facility] ICD ATAF TherapyConfiguration 2 ATP(s) + 0 Shock(s) [facility] ICD FastVT DetectionStatus ENABLED [facility] ICD-ADLRATE_BPM 85 {beats}/min [facility] ICD-AMS EPISODES 133 {beats}/min [facility] ICD-ATP Episodes (Vent) 0 [facility] ICD-ATRIALFIBRILLATION [address] [facility] ICD-Counters Cleared Date 09/23/2016 [facility] ICD-Device Sri GROSS [facility] ICD-LEADIMPEDANCEATRIA L 342 ohm [facility] ICD-Percent Pacing (Atrial) 44.86 % [facility] ICD-Percent Pacing (Vent) 83.22 % [facility] ICD-PMT Intervention ENABLED [facility] ICD-PVC Intervention ENABLED [facility] ICD-Rate Modulation Acceleration Reaction 30 s [facility] ICD-Rate Modulation Deceleration Exercise [facility] ICD-Rate Modulation [place] 3 [facility] ICD-Rate Modulation Threshold MediumHigh [facility] ICD-Shocks Aborted (Vent) 0 [facility] [id number] 0 [facility] ICD-SHOCKSABORTED 0 [facility] ICD-SHOCKSDELIVEREDVEN TRICULAR 0 [facility] ICD-Ventricular Fibrillation 0 [facility] Implant Date 07/03/2005 [facility] Implant Date 11/30/2002 [facility] Lead Impedance (LV) 4047 ohm [facility] Lead Impedance (RV) 779 ohm [facility] Lead Impedance High Voltage 61 ohm [facility] Lead1 Sri GROSS [facility] Lead2 Mfg MDT [facility] Lead3 Mfg GDT [facility] Location LV [facility] Location RA [facility] Location RV [facility] Lower Rate (bpm) 80 {beats}/min [facility] LV PACING % 0 % [facility] Max Sensor Rate (bpm) 90 {beats}/min [facility] MDT_PROG_TACHY_ZONE_DE TECTIONS_STATUS ENABLED [facility] Model [id number] Viva XT PANCAKE PROFESSIONAL-D [facility] Model 4196 Attain Ability MRI SureScan [facility] Model 5076 CapSureFix Novus [facility] Model 0144 [employer] Rx [facility] Pacing Mode DDDR [facility] Serial Number [id number] [facility] Serial Number [id number] [facility] Serial Number [id number] [facility] Serial Number [id number] [facility] Test Charge Energy 18 J [facility] Test Charge Time 5.145 [facility] Therapy Status (Vent) Enabled [facility] Thresh RA Capture Amplitude (volts) 0.625 V [facility] Thresh RA Capture Duration (ms) 0.4 ms [facility] Thresh RA Sensing Amplitude (mvolts) 2 mV [facility] Thresh RV Capture Amplitude (VOLTS) 1.125 V [facility] Thresh RV Capture Duration (MS) 0.4 ms [facility] Thresh RV Sensing Amplitude (MVOLTS) 9.25 mV [facility] Tracking Rate (bpm) 90 {beats}/min [facility] VF Zone Detection Interval 450 ms [facility] VF Zone Therapy Configuration 2 ATP(s) + 0 Shock(s) [facility] AV Delay Adaptive Paced Minimum (ms) 350 ms [facility] AV Delay Adaptive Rate Maximum (bpm) 90 {beats}/min [facility] AV Delay Adaptive Rate Minimum (bpm) 75 {beats}/min [facility] AV Delay Adaptive Sensed Minimum (ms) 250 ms [facility] AV Delay Adaptive Status ENABLED [facility] AV Delay Paced (ms) 100 ms [facility] AV Delay Sensed (ms) 70 ms [facility] Battery Voltage 2.78 V [facility] Scott RA Pacing Amplitude (volts) 2 V [facility] RA Pacing Polarity BI [facility] RA Pacing Pulse Width (ms) 0.4 ms [facility] RA Sensing Amplitude (mvolts) 0.3 mV [facility] RA Sensing Blanking Period (ms) 150 ms [facility] RA Sensing Polarity BI [facility] RA Sensing Refractory Period (ms) 250 ms [facility] Pacing Amplitude (volts) 3 V [facility] RV Pacing Polarity BI [facility] RV Pacing Pulse Width (ms) 0.4 ms [facility] Sensing Amplitude (mvolts) 0.3 mV [facility] Sensing Blanking Period (ms) 200 ms [facility] Sensing Polarity BI [facility] Detection Configuration (Vent) 2 - Zone [facility] FastVT_Detection Interval 450 ms [facility] FastVT_Therapy Configuration 2 ATP(s) + 0 Shock(s) [facility] ICD AFIB DetectionStatus DISABLED [facility] ICD ATAF DetectionInterval ms 450 ms [facility] ICD ATAF DetectionStatus ENABLED [facility] ICD ATAF TherapyConfiguration 2 ATP(s) + 0 Shock(s) [facility] ICD FastVT DetectionStatus ENABLED [facility] ICD-ADLRATE_BPM 85 {beats}/min [facility] ICD-AMS EPISODES 133 {beats}/min [facility] ICD-ATP Episodes (Vent) 0 [facility] ICD-ATRIALFIBRILLATION [address] [facility] ICD-Counters Cleared Date 09/23/2016 [facility] ICD-Device Mfg MDT [facility] ICD-LEADIMPEDANCEATRIA L 342 ohm [facility] ICD-Percent Pacing (Atrial) 80.04 % [facility] ICD-Percent Pacing (Vent) 89.35 % [facility] ICD-PMT Intervention ENABLED [facility] ICD-PVC Intervention ENABLED [facility] ICD-Rate Modulation Acceleration Reaction 30 s [facility] ICD-Rate Modulation Deceleration Exercise [facility] ICD-Rate Modulation [place] 3 [facility] ICD-Rate Modulation Threshold MediumHigh [facility] ICD-Shocks Aborted (Vent) 0 [facility] [id number] 0 [facility] ICD-SHOCKSABORTED 0 [facility] ICD-SHOCKSDELIVEREDVEN TRICULAR 0 [facility] ICD-Ventricular Fibrillation 0 [facility] Implant Date 07/03/2005 [facility] Implant Date 11/30/2002 [facility] Lead Impedance (LV) 4047 ohm [facility] Lead Impedance (RV) 760 ohm [facility] Lead Impedance High Voltage 63 ohm [facility] Lead1 Mfg MDT [facility] Lead2 Mfg MDT [facility] Lead3 Mfg GDT [facility] Location LV [facility] Location RA [facility] Location RV [facility] Lower Rate (bpm) 80 {beats}/min [facility] LV PACING % 0 % [facility] Max Sensor Rate (bpm) 90 {beats}/min [facility] MDT_PROG_TACHY_ZONE_DE TECTIONS_STATUS ENABLED [facility] Model [id number] Viva XT PANCAKE PROFESSIONAL-D [facility] Model 4196 Attain Ability MRI SureScan [facility] Model 5076 CapSureFix Novus [facility] Model 0144 [employer] Rx [facility] Pacing Mode DDDR [facility] Serial Number [id number] [facility] Serial Number [id number] [facility] Serial Number [id number] [facility] Serial Number [id number] [facility] Test Charge Energy 18 J [facility] Test Charge Time 5.145 [facility] Therapy Status (Vent) Enabled [facility] Thresh RA Capture Amplitude (volts) 0.625 V [facility] Thresh RA Capture Duration (ms) 0.4 ms [facility] Thresh RA Sensing Amplitude (mvolts) 2.375 mV [facility] Thresh RV Capture Amplitude (VOLTS) 1.125 V [facility] Thresh RV Capture Duration (MS) 0.4 ms [facility] Thresh RV Sensing Amplitude (MVOLTS) 8.75 mV [facility] Tracking Rate (bpm) 90 {beats}/min [facility] VF Zone Detection Interval 450 ms [facility] VF Zone Therapy Configuration 2 ATP(s) + 0 Shock(s) [facility] No Panel Informationon 04-09 [facility] _ [facility] ICD-ATRIALTACHYCARDIA 0 [facility] ICD-Fast Ventricular Tachycardia 0 [facility] Implant Date 09/23/2016 [facility] BLANK _ [facility] ICD-ATRIALTACHYCARDIA 0 [facility] ICD-Fast Ventricular Tachycardia 0 [facility] Implant Date 09/23/2016 [facility] ICD REMOTE CHECKon 3 AV Delay Adaptive Paced Minimum (ms) 350 ms [facility] AV Delay Adaptive Rate Maximum (bpm) 90 {beats}/min [facility] AV Delay Adaptive Rate Minimum (bpm) 75 {beats}/min [facility] AV Delay Adaptive Sensed Minimum (ms) 250 ms [facility] AV Delay Adaptive Status ENABLED [facility] AV Delay Paced (ms) 100 ms [facility] AV Delay Sensed (ms) 70 ms [facility] Battery Voltage 2.79 V [facility] RA Pacing Amplitude (volts) 2 V [facility] RA Pacing Polarity BI [facility] RA Pacing Pulse Width (ms) 0.4 ms [facility] RA Sensing Amplitude (mvolts) 0.3 mV [facility] RA Sensing Blanking Period (ms) 150 ms [facility] RA Sensing Polarity BI [facility] RA Sensing Refractory Period (ms) 250 ms [facility] RV Pacing Amplitude (volts) 3 V [facility] RV Pacing Polarity BI [facility] RV Pacing Pulse Width (ms) 0.4 ms [facility] Sensing Amplitude (mvolts) 0.3 mV [facility] RV Sensing Blanking Period (ms) 200 ms [facility] RV Sensing Polarity BI [facility] Detection Configuration (Vent) 2 - Zone [facility] FastVT_Detection Interval 450 ms [facility] FastVT_Therapy Configuration 2 ATP(s) + 0 Shock(s) [facility] ICD AFIB DetectionStatus DISABLED [facility] ICD ATAF DetectionInterval ms 450 ms [facility] ICD ATAF DetectionStatus ENABLED [facility] ICD ATAF TherapyConfiguration 2 ATP(s) + 0 Shock(s) [facility] ICD FastVT DetectionStatus ENABLED [facility] ICD-ADLRATE_BPM 85 {beats}/min [facility] ICD-AMS EPISODES 133 {beats}/min [facility] ICD-ATP Episodes (Vent) 0 [facility] ICD-ATRIALFIBRILLATION [address] [facility] ICD-Counters Cleared Date 09/23/2016 [facility] ICD-Device Mfg MDT [facility] ICD-LEADIMPEDANCEATRIA L 342 ohm [facility] ICD-Percent Pacing (Atrial) 81.31 % [facility] ICD-Percent Pacing (Vent) 99.41 % [facility] ICD-PMT Intervention ENABLED [facility] ICD-PVC Intervention ENABLED [facility] ICD-Rate Modulation Acceleration Reaction 30 s [facility] ICD-Rate Modulation Deceleration Exercise [facility] ICD-Rate Modulation [place] 3 [facility] ICD-Rate Modulation Threshold MediumHigh [facility] ICD-Shocks Aborted (Vent) 0 [facility] [id number] 0 [facility] ICD-SHOCKSABORTED 0 [facility] ICD-SHOCKSDELIVEREDVEN TRICULAR 0 [facility] ICD-Ventricular Fibrillation 0 [facility] Implant Date 07/03/2005 [facility] Implant Date 11/30/2002 [facility] Lead Impedance (LV) 4047 ohm [facility] Lead Impedance (RV) 722 ohm [facility] Lead Impedance High Voltage 61 ohm [facility] Lead1 Mfg MDT [facility] Lead2 Mfg MDT [facility] Lead3 Mfg GDT [facility] Location LV [facility] Location RA [facility] Location RV [facility] Lower Rate (bpm) 80 {beats}/min [facility] LV PACING % 0 % [facility] Max Sensor Rate (bpm) 90 {beats}/min [facility] MDT_PROG_TACHY_ZONE_DE TECTIONS_STATUS ENABLED [facility] Model [id number] Viva XT PANCAKE PROFESSIONAL-D [facility] Model 4196 Attain Ability MRI SureScan [facility] Model 5076 CapSureFix Novus [facility] Model 0144 [employer] Rx [facility] Pacing Mode DDDR [facility] Serial Number [id number] [facility] Serial Number [id number] [facility] Serial Number [id number] [facility] Serial Number [id number] [facility] Test Charge Energy 18 J [facility] Test Charge Time 5.145 [facility] Therapy Status (Vent) Enabled [facility] Thresh RA Capture Amplitude (volts) 0.625 V [facility] Thresh RA Capture Duration (ms) 0.4 ms [facility] Thresh RA Sensing Amplitude (mvolts) 3 mV [facility] Thresh RV Capture Amplitude (VOLTS) 1.25 V [facility] Thresh RV Capture Duration (MS) 0.4 ms [facility] Thresh RV Sensing Amplitude (MVOLTS) 8.75 mV [facility] Tracking Rate (bpm) 90 {beats}/min C [facility] VF Zone Detection Interval 450 ms [facility] VF Zone Therapy Configuration 2 ATP(s) + 0 Shock(s) [facility] AV Delay Adaptive Paced Minimum (ms) 350 ms [facility] AV Delay Adaptive Rate Maximum (bpm) 90 {beats}/min [facility] AV Delay Adaptive Rate Minimum (bpm) 75 {beats}/min [facility] AV Delay Adaptive Sensed Minimum (ms) 250 ms [facility] AV Delay Adaptive Status ENABLED [facility] AV Delay Paced (ms) 100 ms [facility] AV Delay Sensed (ms) 70 ms [facility] Battery Voltage 2.79 V [facility] RA Pacing Amplitude (volts) 2 V [facility] RA Pacing Polarity BI [facility] RA Pacing Pulse Width (ms) 0.4 ms [facility] RA Sensing Amplitude (mvolts) 0.3 mV [facility] RA Sensing Blanking Period (ms) 150 ms [facility] RA Sensing Polarity BI [facility] RA Sensing Refractory Period (ms) 250 ms [facility] RV Pacing Amplitude (volts) 2.75 V [facility] RV Pacing Polarity BI [facility] RV Pacing Pulse Width (ms) 0.4 ms [facility] Sensing Amplitude (mvolts) 0.3 mV [facility] Sensing Blanking Period (ms) 200 ms [facility] Sensing Polarity BI [facility] Detection Configuration (Vent) 2 - Zone [facility] FastVT_Detection Interval 450 ms [facility] FastVT_Therapy Configuration 2 ATP(s) + 0 Shock(s) [facility] ICD AFIB DetectionStatus DISABLED [facility] ICD ATAF DetectionInterval ms 450 ms [facility] ICD ATAF DetectionStatus ENABLED [facility] ICD ATAF TherapyConfiguration 2 ATP(s) + 0 Shock(s) [facility] ICD FastVT DetectionStatus ENABLED [facility] ICD-ADLRATE_BPM 85 {beats}/min [facility] ICD-AMS EPISODES 133 {beats}/min [facility] ICD-ATP Episodes (Vent) 0 [facility] ICD-ATRIALFIBRILLATION [address] [facility] ICD-Counters Cleared Date 09/23/2016 [facility] ICD-Device Mfg MDT [facility] ICD-LEADIMPEDANCEATRIA L 342 ohm [facility] ICD-Percent Pacing (Atrial) 99.2 % [facility] ICD-Percent Pacing (Vent) 99.87 % [facility] ICD-PMT Intervention ENABLED [facility] ICD-PVC Intervention ENABLED [facility] ICD-Rate Modulation Acceleration Reaction 30 s [facility] ICD-Rate Modulation Deceleration Exercise [facility] ICD-Rate Modulation [place] 3 [facility] ICD-Rate Modulation Threshold MediumHigh [facility] ICD-Shocks Aborted (Vent) 0 [facility] [id number] 0 [facility] ICD-SHOCKSABORTED 0 [facility] ICD-SHOCKSDELIVEREDVEN TRICULAR 0 [facility] ICD-Ventricular Fibrillation 0 [facility] Implant Date 07/03/2005 [facility] Implant Date 11/30/2002 [facility] Lead Impedance (LV) 4047 ohm [facility] Lead Impedance (RV) 722 ohm [facility] Lead Impedance High Voltage 62 ohm [facility] Lead1 Mfg MDT [facility] Lead2 Mfg MDT [facility] Lead3 Mfg GDT [facility] Location LV [facility] Location RA [facility] Location RV [facility] Lower Rate (bpm) 80 {beats}/min [facility] LV PACING % 0 % [facility] Max Sensor Rate (bpm) 90 {beats}/min [facility] MDT_PROG_TACHY_ZONE_DE TECTIONS_STATUS ENABLED [facility] Model [id number] Viva XT PANCAKE PROFESSIONAL-D [facility] Model 4196 Attain Ability MRI SureScan [facility] Model 5076 CapSureFix Novus [facility] Model 0144 [employer] Rx [facility] Pacing Mode DDDR [facility] Serial Number [id number] [facility] Serial Number [id number] [facility] Serial Number [id number] [facility] Serial Number [id number] [facility] Test Charge Energy 18 J [facility] Test Charge Time 5.145 [facility] Therapy Status (Vent) Enabled [facility] Thresh RA Capture Amplitude (volts) 0.625 V [facility] Thresh RA Capture Duration (ms) 0.4 ms [facility] Thresh RA Sensing Amplitude (mvolts) 2.25 mV [facility] Thresh RV Capture Amplitude (VOLTS) 1.375 V [facility] Thresh RV Capture Duration (MS) 0.4 ms [facility] Thresh RV Sensing Amplitude (MVOLTS) 8.125 mV [facility] Tracking Rate (bpm) 90 {beats}/min [facility] VF Zone Detection Interval 450 ms [facility] VF Zone Therapy Configuration 2 ATP(s) + 0 Shock(s) [facility] No Panel Informationon 03-29 BLANK _ [facility] ICD-ATRIALTACHYCARDIA 0 [facility] ICD-Fast Ventricular Tachycardia 0 [facility] Implant Date 09/23/2016 [facility] BLANK _ [facility] ICD-ATRIALTACHYCARDIA 0 [facility] ICD-Fast Ventricular Tachycardia 0 [facility] Implant Date 09/23/2016 [facility] ICD REMOTE CHECKon 3 AV Delay Adaptive Paced Minimum (ms) 350 ms [facility] AV Delay Adaptive Rate Maximum (bpm) 90 {beats}/min [facility] AV Delay Adaptive Rate Minimum (bpm) 75 {beats}/min [facility] AV Delay Adaptive Sensed Minimum (ms) 250 ms [facility] AV Delay Adaptive Status ENABLED [facility] AV Delay Paced (ms) 100 ms [facility] AV Delay Sensed (ms) 70 ms [facility] Battery Voltage 2.79 V [facility] Scott RA Pacing Amplitude (volts) 2 V [facility] RA Pacing Polarity BI [facility] RA Pacing Pulse Width (ms) 0.4 ms [facility] RA Sensing Amplitude (mvolts) 0.3 mV [facility] RA Sensing Blanking Period (ms) 150 ms [facility] RA Sensing Polarity BI [facility] Scott RA Sensing Refractory Period (ms) 250 ms [facility] RV Pacing Amplitude (volts) 2.75 V [facility] RV Pacing Polarity BI [facility] RV Pacing Pulse Width (ms) 0.4 ms [facility] RV Sensing Amplitude (mvolts) 0.3 mV [facility] RV Sensing Blanking Period (ms) 200 ms [facility] RV Sensing Polarity BI [facility] Detection Configuration (Vent) 2 - Zone [facility] FastVT_Detection Interval 450 ms [facility] FastVT_Therapy Configuration 2 ATP(s) + 0 Shock(s) [facility] ICD AFIB DetectionStatus DISABLED [facility] ICD ATAF DetectionInterval ms 450 ms [facility] ICD ATAF DetectionStatus ENABLED [facility] ICD ATAF TherapyConfiguration 2 ATP(s) + 0 Shock(s) [facility] ICD FastVT DetectionStatus ENABLED [facility] ICD-ADLRATE_BPM 85 {beats}/min [facility] ICD-AMS EPISODES 133 {beats}/min [facility] ICD-ATP Episodes (Vent) 0 [facility] ICD-ATRIALFIBRILLATION [address] [facility] ICD-Counters Cleared Date 09/23/2016 [facility] ICD-Device Mfg MDT [facility] ICD-LEADIMPEDANCEATRIA L 342 ohm [facility] ICD-Percent Pacing (Atrial) 99.95 % [facility] ICD-Percent Pacing (Vent) 99.97 % [facility] ICD-PMT Intervention ENABLED [facility] ICD-PVC Intervention ENABLED [facility] ICD-Rate Modulation Acceleration Reaction 30 s [facility] ICD-Rate Modulation Deceleration Exercise [facility] ICD-Rate Modulation [place] 3 [facility] ICD-Rate Modulation Threshold MediumHigh [facility] ICD-Shocks Aborted (Vent) 0 [facility] [id number] 0 [facility] ICD-SHOCKSABORTED 0 [facility] ICD-SHOCKSDELIVEREDVEN TRICULAR 0 [facility] ICD-Ventricular Fibrillation 0 [facility] Implant Date 07/03/2005 [facility] Implant Date 11/30/2002 [facility] Lead Impedance (LV) 4047 ohm [facility] Lead Impedance (RV) 760 ohm [facility] Lead Impedance High Voltage 59 ohm [facility] Lead1 Mfg MDT [facility] Lead2 Mfg MDT [facility] Lead3 Mfg GDT [facility] Location LV [facility] Location RA [facility] Location RV [facility] Lower Rate (bpm) 80 {beats}/min [facility] LV PACING % 0 % [facility] Max Sensor Rate (bpm) 90 {beats}/min [facility] MDT_PROG_TACHY_ZONE_DE TECTIONS_STATUS ENABLED [facility] Model [id number] Viva XT PANCAKE PROFESSIONAL-D [facility] Model 4196 Attain Ability MRI SureScan [facility] Model 5076 CapSureFix Novus [facility] Model 0144 [employer] Rx [facility] Pacing Mode DDDR [facility] Serial Number [id number] [facility] Serial Number [id number] [facility] Serial Number [id number] [facility] Serial Number [id number] [facility] Test Charge Energy 18 J [facility] Test Charge Time 5.145 [facility] Therapy Status (Vent) Enabled [facility] Thresh RA Capture Amplitude (volts) 0.625 V [facility] Thresh RA Capture Duration (ms) 0.4 ms [facility] Thresh RA Sensing Amplitude (mvolts) 2.875 mV [facility] Thresh RV Capture Amplitude (VOLTS) 1.375 V [facility] Thresh RV Capture Duration (MS) 0.4 ms [facility] Thresh RV Sensing Amplitude (MVOLTS) 11 mV [facility] Tracking Rate (bpm) 90 {beats}/min [facility] VF Zone Detection Interval 450 ms [facility] VF Zone Therapy Configuration 2 ATP(s) + 0 Shock(s) [facility] AV Delay Adaptive Paced Minimum (ms) 350 ms [facility] AV Delay Adaptive Rate Maximum (bpm) 90 {beats}/min [facility] AV Delay Adaptive Rate Minimum (bpm) 75 {beats}/min [facility] AV Delay Adaptive Sensed Minimum (ms) 250 ms [facility] AV Delay Adaptive Status ENABLED [facility] AV Delay Paced (ms) 100 ms [facility] AV Delay Sensed (ms) 70 ms [facility] Battery Voltage 2.78 V [facility] Scott RA Pacing Amplitude (volts) 2 V [facility] RA Pacing Polarity BI [facility] RA Pacing Pulse Width (ms) 0.4 ms [facility] RA Sensing Amplitude (mvolts) 0.3 mV [facility] RA Sensing Blanking Period (ms) 150 ms [facility] RA Sensing Polarity BI [facility] Scott RA Sensing Refractory Period (ms) 250 ms [facility] RV Pacing Amplitude (volts) 2.75 V [facility] RV Pacing Polarity BI [facility] RV Pacing Pulse Width (ms) 0.4 ms [facility] RV Sensing Amplitude (mvolts) 0.3 mV [facility] RV Sensing Blanking Period (ms) 200 ms [facility] RV Sensing Polarity BI [facility] Detection Configuration (Vent) 2 - Zone [facility] FastVT_Detection Interval 450 ms [facility] FastVT_Therapy Configuration 2 ATP(s) + 0 Shock(s) [facility] ICD AFIB DetectionStatus DISABLED [facility] ICD ATAF DetectionInterval ms 450 ms [facility] ICD ATAF DetectionStatus ENABLED [facility] ICD ATAF TherapyConfiguration 2 ATP(s) + 0 Shock(s) [facility] ICD FastVT DetectionStatus ENABLED [facility] ICD-ADLRATE_BPM 85 {beats}/min [facility] ICD-AMS EPISODES 133 {beats}/min [facility] ICD-ATP Episodes (Vent) 0 [facility] ICD-ATRIALFIBRILLATION [address] [facility] ICD-Counters Cleared Date 09/23/2016 [facility] ICD-Device Mfg MDT [facility] ICD-LEADIMPEDANCEATRIA L 361 ohm [facility] ICD-Percent Pacing (Atrial) 98.5 % [facility] ICD-Percent Pacing (Vent) 99.69 % [facility] ICD-PMT Intervention ENABLED [facility] ICD-PVC Intervention ENABLED [facility] ICD-Rate Modulation Acceleration Reaction 30 s [facility] ICD-Rate Modulation Deceleration Exercise [facility] ICD-Rate Modulation [place] 3 [facility] ICD-Rate Modulation Threshold MediumHigh [facility] ICD-Shocks Aborted (Vent) 0 [facility] [id number] 0 [facility] ICD-SHOCKSABORTED 0 [facility] ICD-SHOCKSDELIVEREDVEN TRICULAR 0 [facility] ICD-Ventricular Fibrillation 0 [facility] Implant Date 07/03/2005 [facility] Implant Date 11/30/2002 [facility] Lead Impedance (LV) 4047 ohm [facility] Lead Impedance (RV) 760 ohm [facility] Lead Impedance High Voltage 62 ohm [facility] Lead1 Mfg MDT [facility] Lead2 Mfg MDT [facility] Lead3 Mfg GDT [facility] Location LV [facility] Location RA [facility] Location RV [facility] Lower Rate (bpm) 80 {beats}/min [facility] LV PACING % 0 % [facility] Max Sensor Rate (bpm) 90 {beats}/min [facility] MDT_PROG_TACHY_ZONE_DE TECTIONS_STATUS ENABLED [facility] Model [id number] Viva XT PANCAKE PROFESSIONAL-D [facility] Model 4196 Attain Ability MRI SureScan [facility] Model 5076 CapSureFix Novus [facility] Model 0144 Endotak Endurance Rx [facility] Pacing Mode DDDR [facility] Serial Number [id number] [facility] Serial Number [id number] [facility] Serial Number [id number] [facility] Serial Number [id number] [facility] Test Charge Energy 18 J [facility] Test Charge Time 5.145 [facility] Therapy Status (Vent) Enabled [facility] Thresh RA Capture Amplitude (volts) 0.625 V [facility] Thresh RA Capture Duration (ms) 0.4 ms [facility] Thresh RA Sensing Amplitude (mvolts) 2.875 mV [facility] Thresh RV Capture Amplitude (VOLTS) 1.375 V [facility] Thresh RV Capture Duration (MS) 0.4 ms [facility] Thresh RV Sensing Amplitude (MVOLTS) 13.25 mV [facility] Tracking Rate (bpm) 90 {beats}/min C [facility] VF Zone Detection Interval 450 ms [facility] VF Zone Therapy Configuration 2 ATP(s) + 0 Shock(s) [facility] No Panel Informationon 03-05 BLANK _ [facility] ICD-ATRIALTACHYCARDIA 0 [facility] ICD-Fast Ventricular Tachycardia 0 [facility] Implant Date 09/23/2016 [facility] BLANK _ [facility] ICD-ATRIALTACHYCARDIA 0 [facility] ICD-Fast Ventricular Tachycardia 0 [facility] Implant Date 09/23/2016 [facility] XR CSPINE 2_3 VIEWSon 2022 XR [...] TENZIN ALEJO Date: 2023-01-27 10:58 Normal [facility] PROTIMEon 01-03-2023 INR Coag (PPP) [Relative time] 0.98 {INR} Normal [facility] Comment on above: Performed By: #### P T ####[facility] [address] [place], [place] [address]DtDr. Melissa Helm INR GUIDELINES SEE BELOW Normal [facility] Comment on above: Result Comment: POOJA RED INR: 2.0 - 3.0 CONDITIONS NOT LISTED BELOW 2.5 - 3.5 FOR PROSTHETIC HEART VALVE REPLACEMENT 2.5 - 3.5 RECURRENT THROMBOSIS Performed By: #### P T ####[facility] [address] [place], [place] [address]Ov. Melissa Helm PT Coag (PPP) [Time] 10.4 s Normal 9.0-11.6 [facility] Comment on above: Performed By: #### P T ####[facility] [address] [place], [place] [address]Xo. Melissa Helm XR SHOULDER RT 2V or [...] FAUSTO GONCALVES Date: 2023-01-03 13:54 Normal [facility] ICD REMOTE CHECKon 3 AV Delay Adaptive Paced Minimum (ms) 350 ms [facility] AV Delay Adaptive Rate Maximum (bpm) 90 {beats}/min [facility] AV Delay Adaptive Rate Minimum (bpm) 75 {beats}/min [facility] AV Delay Adaptive Sensed Minimum (ms) 250 ms [facility] AV Delay Adaptive Status ENABLED [facility] AV Delay Paced (ms) 100 ms [facility] AV Delay Sensed (ms) 70 ms [facility] Battery Voltage 2.81 V [facility] Scott RA Pacing Amplitude (volts) 2 V [facility] Scott RA Pacing Polarity BI [facility] Scott RA Pacing Pulse Width (ms) 0.4 ms [facility] Scott RA Sensing Amplitude (mvolts) 0.3 mV [facility] Scott RA Sensing Blanking Period (ms) 150 ms [facility] Scott RA Sensing Polarity BI [facility] Scott RA Sensing Refractory Period (ms) 250 ms [facility] Scott RV Pacing Amplitude (volts) 2.75 V [facility] Scott RV Pacing Polarity BI [facility] Scott RV Pacing Pulse Width (ms) 0.4 ms [facility] Scott RV Sensing Amplitude (mvolts) 0.3 mV [facility] Scott RV Sensing Blanking Period (ms) 200 ms [facility] Scott RV Sensing Polarity BI [facility] Detection Configuration (Vent) 2 - Zone [facility] FastVT_Detection Interval 450 ms [facility] FastVT_Therapy Configuration 2 ATP(s) + 0 Shock(s) [facility] ICD AFIB DetectionStatus DISABLED [facility] ICD ATAF DetectionInterval ms 450 ms [facility] ICD ATAF DetectionStatus ENABLED [facility] ICD ATAF TherapyConfiguration 2 ATP(s) + 0 Shock(s) [facility] ICD FastVT DetectionStatus ENABLED [facility] ICD-ADLRATE_BPM 85 {beats}/min [facility] ICD-AMS EPISODES 133 {beats}/min [facility] ICD-ATP Episodes (Vent) 0 [facility] ICD-ATRIALFIBRILLATION [address] [facility] ICD-Counters Cleared Date 09/23/2016 [facility] ICD-Device Sri GROSS [facility] ICD-LEADIMPEDANCEATRIA L 342 ohm [facility] ICD-Percent Pacing (Atrial) 99.28 % [facility] ICD-Percent Pacing (Vent) 99.57 % [facility] ICD-PMT Intervention ENABLED [facility] ICD-PVC Intervention ENABLED [facility] ICD-Rate Modulation Acceleration Reaction 30 s [facility] ICD-Rate Modulation Deceleration Exercise [facility] ICD-Rate Modulation [place] 3 [facility] ICD-Rate Modulation Threshold MediumHigh [facility] ICD-Shocks Aborted (Vent) 0 [facility] [id number] 0 [facility] ICD-SHOCKSABORTED 0 [facility] ICD-SHOCKSDELIVEREDVEN TRICULAR 0 [facility] ICD-Ventricular Fibrillation 0 [facility] Implant Date 07/03/2005 [facility] Implant Date 11/30/2002 [facility] Lead Impedance (LV) 4047 ohm [facility] Lead Impedance (RV) 722 ohm [facility] Lead Impedance High Voltage 64 ohm [facility] Lead1 Mfg MDT [facility] Lead2 Mfg MDT [facility] Lead3 Mfg GDT [facility] Location LV [facility] Location RA [facility] Location RV [facility] Lower Rate (bpm) 80 {beats}/min [facility] LV PACING % 0 % [facility] Max Sensor Rate (bpm) 90 {beats}/min [facility] RENATO_PROG_TACHY_ZONE_DE TECTIONS_STATUS ENABLED [facility] Model [id number] Viva XT PANCAKE PROFESSIONAL-D [facility] Model 4196 Attain Ability MRI SureScan [facility] Model 5076 CapSureFix Novus [facility] Model 0144 [employer] Endurance Rx [facility] Pacing Mode DDDR [facility] Serial Number [id number] [facility] Serial Number [id number] [facility] Serial Number [id number] [facility] Serial Number [id number] [facility] Test Charge Energy 18 J [facility] Test Charge Time 4.834 [facility] Therapy Status (Vent) Enabled [facility] Thresh RA Capture Amplitude (volts) 0.625 V [facility] Thresh RA Capture Duration (ms) 0.4 ms [facility] Thresh RA Sensing Amplitude (mvolts) 2 mV [facility] Thresh RV Capture Amplitude (VOLTS) 1.375 V [facility] Thresh RV Capture Duration (MS) 0.4 ms [facility] Thresh RV Sensing Amplitude (MVOLTS) 7.5 mV [facility] Tracking Rate (bpm) 90 {beats}/min C [facility] VF Zone Detection Interval 450 ms [facility] VF Zone Therapy Configuration 2 ATP(s) + 0 Shock(s) [facility] No Panel Informationon 11-28 BLANK _ [facility] ICD-ATRIALTACHYCARDIA 0 [facility] ICD-Fast Ventricular Tachycardia 0 [facility] Implant Date 09/23/2016 [facility] NM BONE IMAGE 3 PHASEon 10-01 [...] by: JC BRAVO Date: 2022-10-26 13:35 Normal [facility] TRANSFERRINon 02-08-2023 Transferrin [Mass/Vol] 354 mg/dL Normal 192-364 Th e [facility] Comment on above: Performed By: #### T RANSFR #### [facility] [address] [place] [address] Dr. Melissa Helm CBC AUTO DIFFon 10-06-2022 BASO # 0.1 103/ul Normal 0.0-0.1 [facility] Comment on above: Performed By: #### C BC #### [facility] [address] [place] [address] Dr. Melissa Helm Basophils/100 WBC (Bld) 0.9 % Normal 0.2-2.0 [facility] Comment on above: Performed By: #### C BC #### [facility] [address] [place] [address] Dr. Melissa Helm EO # 0.4 103/ul Normal 0.0-0.7 [facility] Comment on above: Performed By: #### C BC #### [facility] [address] [place] [address] Dr. Melissa Helm Eosinophils/100 WBC (Bld) 2.7 % Normal 0.9-7.0 [facility] Comment on above: Performed By: #### C BC #### [facility] [address] [place] [address] Dr. Melissa Helm Erythrocyte distribution width (RBC) [Ratio] 20.8 % Critically high 11.0-15.0 [facility] Comment on above: Performed By: #### C BC #### [facility] [address] [place] [address] Dr. Melissa Helm Hematocrit (Bld) [Volume fraction] 38.3 % Normal 36.0-48.0 [facility] Comment on above: Performed By: #### C BC #### [facility] [address] [place] [address] Dr. Melissa Helm Hemoglobin (Bld) [Mass/Vol] 10.8 g/dL Critically low 12.0-16.0 [facility] Comment on above: Performed By: #### C BC #### [facility] [address] [place] [address] Dr. Melissa Helm IG # 0.07 10e3/ul Critically high 0.00-0.03 [facility] Comment on above: Performed By: #### C BC #### [facility] [address] [place] [address] Dr. Melissa Helm IG % 0.5 % Normal 0.0-0.5 [facility] Comment on above: Performed By: #### C BC #### [facility] [address] [place] [address] Dr. Melissa Helm LYMPH # 2.2 103/ul Normal 1.2-3.8 [facility] Comment on above: Performed By: #### C BC #### [facility] [address] [place] [address] Dr. Melissa Helm Lymphocytes/100 WBC (Bld) 17.5 % Critically low 20.5-60.0 [facility] Comment on above: Performed By: #### C BC #### [facility] [address] [place] [address] Dr. Melissa Helm MANUAL DIFF REQ NO Normal [facility] Comment on above: Performed By: #### C BC #### [facility] [address] [place] [address] Dr. Melissa Helm MCH (RBC) [Entitic mass] 20.6 pg Critically low 26.7-34.0 [facility] Comment on above: Performed By: #### C BC #### [facility] [address] [place] [address] Dr. Melissa Helm MCHC (RBC) [Mass/Vol] 28.2 g/dL Critically low 29.9-35.2 [facility] Comment on above: Performed By: #### C BC #### [facility] [address] [place] [address] Dr. Melissa Helm MCV (RBC) [Entitic vol] 73.0 fL Critically low 81.0-99.0 [facility] Comment on above: Performed By: #### C BC #### [facility] [address] [place] [address] Dr. Melissa Helm MONO # 1.2 103/ul Critically high 0.3-0.8 [facility] Comment on above: Performed By: #### C BC #### [facility] [address] [place] [address] Dr. Melissa Helm Monocytes/100 WBC (Bld) 9.0 % Normal 1.7-12.0 [facility] Comment on above: Performed By: #### C BC #### [facility] [address] [address] [address] Melissa Helm NEUT # 8.9 103/ul Critically high 1.4-6.5 [facility] Comment on above: Performed By: #### C BC #### [facility] [address] [place] [address] Dr. Melissa Helm Neutrophils/100 WBC (Bld) 69.4 % Normal 43.0-75.0 [facility] Comment on above: Performed By: #### C BC #### [facility] [address] [place] [address] Dr. Melissa Helm PLT 184 103/ul Normal 150-450 [facility] Comment on above: Performed By: #### C BC #### [facility] [address] [place] [address] Dr. Melissa Helm RBC 5.25 106/ul Normal 4.20-5.40 [facility] Comment on above: Performed By: #### C BC #### [facility] [address] [place] [address] Dr. Melissa Helm WBC 12.8 103/ul Critically high 4.0-11.0 [facility] Comment on above: Performed By: #### C BC #### [facility] [address] [place] [address] Dr. Melissa Helm FERRITINon 10-06-2022 Ferritin [Mass/Vol] 33.0 ng/mL Normal 8.0-252.0 [facility] Comment on above: Performed By: #### F ERR, FETIBC #### [facility] [address] [place] [address] Dr. Melissa Helm IRON AND TIBCon 10-06-2022 % SATURATION 20.3 % Normal [facility] Comment on above: Performed By: #### F ERR, FETIBC #### [facility] [id number] Melissa Helm Iron [Mass/Vol] 89.0 ug/dL Normal 50.0-170.0 [facility] Comment on above: Performed By: #### F ERR, FETIBC #### [facility] [id number] Melissa Helm TIBC DIRECT 438.0 ug/dL Normal 250.0-450. 0 [facility] Comment on above: Performed By: #### F ERR, FETIBC #### [facility] [address] [address] [address] Melissa Juárez 09-11-2022 CNPN Telephone (CARDMN) ----- ESSENCE VINCENT ([id number]) 1970 F Date Time Provider Department 09/11/22 [...] LD 07-04- Problem List As Of Date 09/11/2022 Noted Resolved Urinary tract infection of [P39.3] 07/26/2004 07/23/2020 Fitting and adjustment of orthopedic device [Z4*04/29/2010 07/23/2020 CAD (coronary artery disease) [I25.10] Remote STEMI (1998) [I21.3] 07/23/2020 Cardiogenic shock (HCC) [R57.0] 07/23/2020 Heart failure, systolic, acute on chronic (HCC)* 07/23/2020 Heart failure, systolic and diastolic, chronic * MR (mitral regurgitation) [I34.0] 07/16/2012 Pulmonary hypertension [I27.20] Dual chamber PANCAKE PROFESSIONAL-D [Z95.810] 07/23/2020 Primary hypertension [I10] Nicotine use disorder [F17.200] Exercise-induced asthma [J45.990] Anemia [D64.9] 10/29/2011 07/23/2020 H/o GERD [K21.9] 07/23/2020 Migraines [G43.909] H/o Depression/Anxiety/Sleep disturbance [F32.* Preop testing [Z01.818] 07/08/2012 07/23/2020 SUMMARY [V999.95] 07/11/2012 07/23/2020 Pulmonary hypertension, moderate to severe (HCC*2012 Other acute postoperative pain [G89.18] 07/13/2012 07/16/2012 Pulmonary insuff [ONP4665] 07/13/2012 07/23/2020 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 [...] Status:Closed by NADIR BRANDT on 09/11/22 Normal [facility] ICD REMOTE CHECKon 2 AV Delay Adaptive Paced Minimum (ms) 350 ms [facility] AV Delay Adaptive Rate Maximum (bpm) 90 {beats}/min [facility] Adaptive Rate Minimum (bpm) 75 {beats}/min [facility] AV Delay Adaptive Sensed Minimum (ms) 250 ms [facility] AV Delay Adaptive Status ENABLED [facility] AV Delay Paced (ms) 100 ms [facility] AV Delay Sensed (ms) 70 ms [facility] Battery Voltage 2.85 V [facility] Scott RA Pacing Amplitude (volts) 2 V [facility] Scott RA Pacing Polarity BI [facility] RA Pacing Pulse Width (ms) 0.4 ms [facility] Scott RA Sensing Amplitude (mvolts) 0.3 mV [facility] Scott RA Sensing Blanking Period (ms) 150 ms [facility] Scott RA Sensing Polarity BI [facility] Scott RA Sensing Refractory Period (ms) 250 ms [facility] Scott RV Pacing Amplitude (volts) 2.5 V [facility] Scott RV Pacing Polarity BI [facility] Scott RV Pacing Pulse Width (ms) 0.4 ms [facility] Scott RV Sensing Amplitude (mvolts) 0.3 mV [facility] Scott RV Sensing Blanking Period (ms) 200 ms [facility] Scott RV Sensing Polarity BI [facility] Detection Configuration (Vent) 2 - Zone [facility] FastVT_Detection Interval 450 ms [facility] FastVT_Therapy Configuration 2 ATP(s) + 0 Shock(s) [facility] ICD AFIB DetectionStatus DISABLED [facility] ICD ATAF DetectionInterval ms 450 ms [facility] ICD ATAF DetectionStatus ENABLED [facility] ICD ATAF TherapyConfiguration 2 ATP(s) + 0 Shock(s) [facility] ICD FastVT DetectionStatus ENABLED [facility] ICD-ADLRATE_BPM 85 {beats}/min [facility] ICD-AMS EPISODES 133 {beats}/min [facility] ICD-ATP Episodes (Vent) 0 [facility] ICD-ATRIALFIBRILLATION [address] [facility] ICD-ATRIALTACHYCARDIA 4 [facility] ICD-Counters Cleared Date 09/23/2016 [facility] ICD-Device Mfg MDT [facility] ICD-LEADIMPEDANCEATRIA L 361 ohm [facility] ICD-Percent Pacing (Atrial) 79.65 % [facility] ICD-Percent Pacing (Vent) 98.96 % [facility] ICD-PMT Intervention ENABLED [facility] ICD-PVC Intervention ENABLED [facility] ICD-Rate Modulation Acceleration Reaction 30 s [facility] ICD-Rate Modulation Deceleration Exercise [facility] ICD-Rate Modulation [place] 3 [facility] ICD-Rate Modulation Threshold MediumHigh [facility] ICD-Shocks Aborted (Vent) 0 [facility] [id number] 0 [facility] ICD-SHOCKSABORTED 0 [facility] ICD-SHOCKSDELIVEREDVEN TRICULAR 0 [facility] ICD-Ventricular Fibrillation 0 [facility] Implant Date 07/03/2005 [facility] Implant Date 11/30/2002 [facility] Lead Impedance (LV) 4047 ohm [facility] Lead Impedance (RV) 722 ohm [facility] Lead Impedance High Voltage 63 ohm [facility] Lead1 Mfg MDT [facility] Lead2 Mfg MDT [facility] Lead3 Mfg GDT [facility] Location LV [facility] Location RA [facility] Location RV [facility] Lower Rate (bpm) 80 {beats}/min [facility] LV PACING % 0 % [facility] Max Sensor Rate (bpm) 90 {beats}/min [facility] MDT_PROG_TACHY_ZONE_DE TECTIONS_STATUS ENABLED [facility] Model [id number] Viva XT PANCAKE PROFESSIONAL-D [facility] Model 4196 Attain Ability MRI SureScan [facility] Model 5076 CapSureFix Novus [facility] Model 0144 [employer] Endurance Rx [facility] Pacing Mode DDDR [facility] Serial Number [id number] [facility] Serial Number [id number] [facility] Serial Number [id number] [facility] Serial Number [id number] [facility] Test Charge Energy 18 J [facility] Test Charge Time 4.464 [facility] Therapy Status (Vent) Enabled [facility] Thresh RA Capture Amplitude (volts) 0.625 V [facility] Thresh RA Capture Duration (ms) 0.4 ms [facility] Thresh RA Sensing Amplitude (mvolts) 2.375 mV [facility] Thresh RV Capture Amplitude (VOLTS) 1.25 V [facility] Thresh RV Capture Duration (MS) 0.4 ms [facility] Thresh RV Sensing Amplitude (MVOLTS) 12 mV [facility] Tracking Rate (bpm) 90 {beats}/min [facility] VF Zone Detection Interval 450 ms [facility] VF Zone Therapy Configuration 2 ATP(s) + 0 Shock(s) [facility] No Panel Informationon 08-25 BLANK _ [facility] ICD-ATRIALTACHYCARDIA 0 [facility] ICD-Fast Ventricular Tachycardia 0 [facility] Implant Date 09/23/2016 [facility] ICD REMOTE CHECKon 2 AV Delay Adaptive Paced Minimum (ms) 350 ms [facility] AV Delay Adaptive Rate Maximum (bpm) 90 {beats}/min [facility] AV Delay Adaptive Rate Minimum (bpm) 75 {beats}/min [facility] AV Delay Adaptive Sensed Minimum (ms) 250 ms [facility] AV Delay Adaptive Status ENABLED [facility] AV Delay Paced (ms) 100 ms [facility] AV Delay Sensed (ms) 70 ms [facility] Battery Voltage 2.86 V [facility] Scott RA Pacing Amplitude (volts) 2 V [facility] Scott RA Pacing Polarity BI [facility] RA Pacing Pulse Width (ms) 0.4 ms [facility] Scott RA Sensing Amplitude (mvolts) 0.3 mV [facility] Scott RA Sensing Blanking Period (ms) 150 ms [facility] Scott RA Sensing Polarity BI [facility] Scott RA Sensing Refractory Period (ms) 250 ms [facility] Scott RV Pacing Amplitude (volts) 3 V [facility] RV Pacing Polarity BI [facility] RV Pacing Pulse Width (ms) 0.4 ms [facility] Scott RV Sensing Amplitude (mvolts) 0.3 mV [facility] Scott RV Sensing Blanking Period (ms) 200 ms [facility] Scott RV Sensing Polarity BI [facility] Detection Configuration (Vent) 2 - Zone [facility] FastVT_Detection Interval 450 ms [facility] FastVT_Therapy Configuration 2 ATP(s) + 0 Shock(s) [facility] ICD AFIB DetectionStatus DISABLED [facility] ICD ATAF DetectionInterval ms 450 ms [facility] ICD ATAF DetectionStatus ENABLED [facility] ICD ATAF TherapyConfiguration 2 ATP(s) + 0 Shock(s) [facility] ICD FastVT DetectionStatus ENABLED [facility] ICD-ADLRATE_BPM 85 {beats}/min [facility] ICD-AMS EPISODES 133 {beats}/min [facility] ICD-ATP Episodes (Vent) 0 [facility] ICD-ATRIALFIBRILLATION [address] [facility] ICD-ATRIALTACHYCARDIA 1 [facility] ICD-Counters Cleared Date 09/23/2016 [facility] ICD-Device Mfg MDT [facility] ICD-LEADIMPEDANCEATRIA L 361 ohm [facility] ICD-Percent Pacing (Atrial) 84.32 % [facility] ICD-Percent Pacing (Vent) 99.05 % [facility] ICD-PMT Intervention ENABLED [facility] ICD-PVC Intervention ENABLED [facility] ICD-Rate Modulation Acceleration Reaction 30 s [facility] ICD-Rate Modulation Deceleration Exercise [facility] ICD-Rate Modulation [place] 3 [facility] ICD-Rate Modulation Threshold MediumHigh [facility] ICD-Shocks Aborted (Vent) 0 [facility] [id number] 0 [facility] ICD-SHOCKSABORTED 0 [facility] ICD-SHOCKSDELIVEREDVEN TRICULAR 0 [facility] ICD-Ventricular Fibrillation 0 [facility] Implant Date 07/03/2005 [facility] Implant Date 11/30/2002 [facility] Lead Impedance (LV) 4047 ohm [facility] Lead Impedance (RV) 722 ohm [facility] Lead Impedance High Voltage 63 ohm [facility] Lead1 Mfg MDT [facility] Lead2 Mfg MDT [facility] Lead3 Mfg GDT [facility] Location LV [facility] Location RA [facility] Location RV [facility] Lower Rate (bpm) 80 {beats}/min [facility] LV PACING % 0 % [facility] Max Sensor Rate (bpm) 90 {beats}/min [facility] MDT_PROG_TACHY_ZONE_DE TECTIONS_STATUS ENABLED [facility] Model [id number] Viva XT PANCAKE PROFESSIONAL-D [facility] Model 4196 Attain Ability MRI SureScan [facility] Model 5076 CapSureFix Novus [facility] Model 0144 [employer]ot[employer]urance Rx [facility] Pacing Mode DDDR [facility] Serial Number [id number] [facility] Serial Number [id number] [facility] Serial Number [id number] [facility] Serial Number [id number] [facility] Test Charge Energy 18 J [facility] Test Charge Time 4.464 [facility] Therapy Status (Vent) Enabled [facility] Thresh RA Capture Amplitude (volts) 0.625 V [facility] Thresh RA Capture Duration (ms) 0.4 ms [facility] Thresh RA Sensing Amplitude (mvolts) 3.125 mV [facility] Thresh RV Capture Amplitude (VOLTS) 1.5 V [facility] Thresh RV Capture Duration (MS) 0.4 ms [facility] Thresh RV Sensing Amplitude (MVOLTS) 10.75 mV [facility] Tracking Rate (bpm) 90 {beats}/min C [facility] VF Zone Detection Interval 450 ms [facility] VF Zone Therapy Configuration 2 ATP(s) + 0 Shock(s) [facility] No Panel Informationon 07-01 BLANK _ [facility] ICD-ATRIALTACHYCARDIA 0 [facility] ICD-Fast Ventricular Tachycardia 0 [facility] Implant Date 09/23/2016 [facility] ICD REMOTE CHECKon 2 AV Delay Adaptive Paced Minimum (ms) 350 ms [facility] AV Delay Adaptive Rate Maximum (bpm) 90 {beats}/min [facility] AV Delay Adaptive Rate Minimum (bpm) 75 {beats}/min [facility] AV Delay Adaptive Sensed Minimum (ms) 250 ms [facility] AV Delay Adaptive Status ENABLED [facility] AV Delay Paced (ms) 100 ms [facility] AV Delay Sensed (ms) 70 ms [facility] Battery Voltage 2.85 V [facility] Scott LV Pacing Polarity BI [facility] RA Pacing Amplitude (volts) 2 V [facility] RA Pacing Polarity BI [facility] RA Pacing Pulse Width (ms) 0.4 ms [facility] RA Sensing Amplitude (mvolts) 0.3 mV [facility] RA Sensing Blanking Period (ms) 150 ms [facility] RA Sensing Polarity BI [facility] RA Sensing Refractory Period (ms) 250 ms [facility] RV Pacing Amplitude (volts) 2.75 V [facility] RV Pacing Polarity BI [facility] RV Pacing Pulse Width (ms) 0.4 ms [facility] RV Sensing Amplitude (mvolts) 0.3 mV [facility] RV Sensing Blanking Period (ms) 200 ms [facility] RV Sensing Polarity BI [facility] Detection Configuration (Vent) 2 - Zone [facility] FastVT_Detection Interval 450 ms [facility] FastVT_Therapy Configuration 2 ATP(s) + 0 Shock(s) [facility] ICD AFIB DetectionStatus DISABLED [facility] ICD ATAF DetectionInterval ms 450 ms [facility] ICD ATAF DetectionStatus ENABLED [facility] ICD ATAF TherapyConfiguration 2 ATP(s) + 0 Shock(s) [facility] ICD FastVT DetectionStatus ENABLED [facility] ICD-ADLRATE_BPM 85 {beats}/min [facility] ICD-AMS EPISODES 133 {beats}/min [facility] ICD-ATP Episodes (Vent) 0 [facility] ICD-ATRIALFIBRILLATION [address] [facility] ICD-ATRIALTACHYCARDIA 117 [facility] ICD-Counters Cleared Date 09/23/2016 [facility] ICD-Device Mfg MDT [facility] ICD-LEADIMPEDANCEATRIA L 342 ohm [facility] ICD-Percent Pacing (Atrial) 67.54 % [facility] ICD-Percent Pacing (Vent) 96.8 % [facility] ICD-PMT Intervention ENABLED [facility] ICD-PVC Intervention ENABLED [facility] ICD-Rate Modulation Acceleration Reaction 30 s [facility] ICD-Rate Modulation Deceleration Exercise [facility] ICD-Rate Modulation [place] 3 [facility] ICD-Rate Modulation Threshold MediumHigh [facility] ICD-Shocks Aborted (Vent) 0 [facility] [id number] 0 [facility] ICD-SHOCKSABORTED 0 [facility] ICD-SHOCKSDELIVEREDVEN TRICULAR 0 [facility] ICD-Ventricular Fibrillation 0 [facility] Implant Date 07/03/2005 [facility] Implant Date 11/30/2002 [facility] Lead Impedance (LV) 4047 ohm [facility] Lead Impedance (RV) 703 ohm [facility] Lead Impedance High Voltage 60 ohm [facility] Lead1 Mfg MDT [facility] Lead2 Mfg MDT [facility] Lead3 Mfg GDT [facility] Location LV [facility] Location RA [facility] Location RV [facility] Lower Rate (bpm) 80 {beats}/min [facility] LV PACING % 0 % [facility] Max Sensor Rate (bpm) 90 {beats}/min [facility] MDT_PROG_TACHY_ZONE_DE TECTIONS_STATUS ENABLED [facility] Model [id number] Viva XT PANCAKE PROFESSIONAL-D [facility] Model 4196 Attain Ability MRI SureScan [facility] Model 5076 CapSureFix Novus [facility] Model 0144 [employer] Rx [facility] Pacing Mode DDDR [facility] Serial Number [id number] [facility] Serial Number [id number] [facility] Serial Number [id number] [facility] Serial Number [id number] [facility] Test Charge Energy 18 J [facility] Test Charge Time 4.464 [facility] Therapy Status (Vent) Enabled [facility] Thresh RA Capture Amplitude (volts) 0.625 V [facility] Thresh RA Capture Duration (ms) 0.4 ms [facility] Thresh RA Sensing Amplitude (mvolts) 2 mV [facility] Thresh RV Capture Amplitude (VOLTS) 1.375 V [facility] Thresh RV Capture Duration (MS) 0.4 ms [facility] Thresh RV Sensing Amplitude (MVOLTS) 10.375 mV [facility] Tracking Rate (bpm) 90 {beats}/min C [facility] VF Zone Detection Interval 450 ms [facility] VF Zone Therapy Configuration 2 ATP(s) + 0 Shock(s) [facility] AV Delay Adaptive Paced Minimum (ms) 350 ms [facility] AV Delay Adaptive Rate Maximum (bpm) 90 {beats}/min [facility] AV Delay Adaptive Rate Minimum (bpm) 75 {beats}/min [facility] AV Delay Adaptive Sensed Minimum (ms) 250 ms [facility] AV Delay Adaptive Status ENABLED [facility] AV Delay Paced (ms) 100 ms [facility] AV Delay Sensed (ms) 70 ms [facility] Battery Voltage 2.85 V [facility] LV Pacing Polarity BI [facility] RA Pacing Amplitude (volts) 2 V [facility] RA Pacing Polarity BI [facility] RA Pacing Pulse Width (ms) 0.4 ms [facility] RA Sensing Amplitude (mvolts) 0.3 mV [facility] RA Sensing Blanking Period (ms) 150 ms [facility] RA Sensing Polarity BI [facility] RA Sensing Refractory Period (ms) 250 ms [facility] RV Pacing Amplitude (volts) 2.75 V [facility] RV Pacing Polarity BI [facility] RV Pacing Pulse Width (ms) 0.4 ms [facility] RV Sensing Amplitude (mvolts) 0.3 mV [facility] RV Sensing Blanking Period (ms) 200 ms [facility] RV Sensing Polarity BI [facility] Detection Configuration (Vent) 2 - Zone [facility] FastVT_Detection Interval 450 ms [facility] FastVT_Therapy Configuration 2 ATP(s) + 0 Shock(s) [facility] ICD AFIB DetectionStatus DISABLED [facility] ICD ATAF DetectionInterval ms 450 ms [facility] ICD ATAF DetectionStatus ENABLED [facility] ICD ATAF TherapyConfiguration 2 ATP(s) + 0 Shock(s) [facility] ICD FastVT DetectionStatus ENABLED [facility] ICD-ADLRATE_BPM 85 {beats}/min [facility] ICD-AMS EPISODES 133 {beats}/min [facility] ICD-ATP Episodes (Vent) 0 [facility] ICD-ATRIALFIBRILLATION [address] [facility] [address] [facility] ICD-ATRIALTACHYCARDIA 117 [facility] ICD-Counters Cleared Date 09/23/2016 [facility] ICD-Device Mfg MDT [facility] ICD-LEADIMPEDANCEATRIA L 342 ohm [facility] ICD-Percent Pacing (Atrial) 67.54 % [facility] ICD-Percent Pacing (Vent) 96.8 % [facility] ICD-PMT Intervention ENABLED [facility] ICD-PVC Intervention ENABLED [facility] ICD-Rate Modulation Acceleration Reaction 30 s [facility] ICD-Rate Modulation Deceleration Exercise [facility] ICD-Rate Modulation [place] 3 [facility] ICD-Rate Modulation Threshold MediumHigh [facility] ICD-Shocks Aborted (Vent) 0 [facility] [id number] 0 [facility] ICD-SHOCKSABORTED 0 [facility] ICD-SHOCKSDELIVEREDVEN TRICULAR 0 [facility] ICD-Ventricular Fibrillation 0 [facility] Implant Date 07/03/2005 [facility] Implant Date 11/30/2002 [facility] Lead Impedance (LV) 4047 ohm [facility] Lead Impedance (RV) 703 ohm [facility] Lead Impedance High Voltage 60 ohm [facility] Lead1 Mfg MDT [facility] Lead2 Mfg MDT [facility] Lead3 Mfg GDT [facility] Location LV [facility] Location RA [facility] Location RV [facility] Lower Rate (bpm) 80 {beats}/min [facility] LV PACING % 0 % [facility] Max Sensor Rate (bpm) 90 {beats}/min [facility] T_PROG_TACHY_ZONE_DE TECTIONS_STATUS ENABLED [facility] Model [id number] Viva XT PANCAKE PROFESSIONAL-D [facility] Model 4196 Attain Ability MRI SureScan [facility] Model 5076 CapSureFix Novus [facility] Model 0144 [employer] Rx [facility] Pacing Mode DDDR [facility] Serial Number [id number] [facility] Serial Number [id number] [facility] Serial Number [id number] [facility] Serial Number [id number] [facility] Test Charge Energy 18 J [facility] Test Charge Time 4.464 [facility] Therapy Status (Vent) Enabled [facility] Thresh RA Capture Amplitude (volts) 0.625 V [facility] Thresh RA Capture Duration (ms) 0.4 ms [facility] Thresh RA Sensing Amplitude (mvolts) 2 mV [facility] Thresh RV Capture Amplitude (VOLTS) 1.375 V [facility] Thresh RV Capture Duration (MS) 0.4 ms [facility] Thresh RV Sensing Amplitude (MVOLTS) 10.375 mV [facility] Tracking Rate (bpm) 90 {beats}/min [facility] VF Zone Detection Interval 450 ms [facility] VF Zone Therapy Configuration 2 ATP(s) + 0 Shock(s) [facility] No Panel Informationon 06-01 BLANK _ [facility] ICD-ATRIALTACHYCARDIA 0 [facility] ICD-Fast Ventricular Tachycardia 0 [facility] Implant Date 09/23/2016 [facility] BLANK _ [facility] ICD-ATRIALTACHYCARDIA 0 [facility] ICD-Fast Ventricular Tachycardia 0 [facility] Implant Date 09/23/2016 [facility] Office Visit (Cardiology)on 04-24-2022 Follow-up visit [...] Pacemaker Interrogation; Status:Active - Retrospective Authorization; Requested for:[id number]; Health Maintenance Renew: Isosorbide Mononitrate ER 30 MG Oral Tablet Extended Release 24 Hour; TAKE 1 TABLET DAILY Avoid alcoholic beverages.; Status:Complete - Retrospective Authorization; Done: [id number] Avoid foods and beverages that contain caffeine.; Status:Complete - Retrospective Authorization; Done: [id number] Begin or continue regular aerobic exercise. Gradually work up to at least 3 sessions of 30 minutes of exercise a week.; Status:Complete - Retrospective Authorization; Done: [id number] Diets that are low in carbohydrates and high in protein are very popular for weight loss.; Status:Complete - Retrospective Authorization; Done: [id number] Eat a low fat and low cholesterol diet.; Status:Complete - Retrospective Authorization; Done: [id number] Please bring all medicines, vitamins, and herbal supplements with you when you come to the office.; Status:Complete - Retrospective Authorization; Done: [id number] Restrict the salt in your diet by avoiding highly salted foods.; Status:Complete - Retrospective Authorization; Done: [id number] Health Maintenance, Overweight with body mass index (BMI) of 29 to 29.9 in adult Losing just 5 to 10 pounds may lower your risk of health problems.; Status:Complete - Retrospective Authorization; Done: [id number] SocHx: Former smoker Tobacco Use Screening; Status:Complete; Done: [id number] Patient Instructions Follow up with Dr. Nunez in 6 months and 1 year with a device check. Drink plenty of water daily. ILatesha CMA, am scribing for and in the presence of, Dr. Margareth Nunez, MA, FACC, FACP, FHRS. No list or bottles for comparison, patient or family member to call with any updates [phone] The provider reviewed the following test(s) and [...] for details. She has remote history of [place] , cardiogenic shock, PCI circumflex and iABP, with persistent severe LV dysfunction. She later occluded her cicumflex. Years later, she had HF and severe MR and underwent mitral valve repair at [facility]. She had recurrent VT and atrial arrhythmias, and underwent several ablations and repeat percutaneous MVR at [facility]. After her MVR and ablation in July,, she had KALLI when then improved. She has had recurrent ICD shocks for atrial flutter. Personal review of ECG and cardiac data reviewed Outside records: EP study and successful ablation of atrial flutter. Multiple atrial tachycardias, possible left atrial tachycardia also noted and not targeted for ablation. December 2021. [facility] Cardiology consult Oct 2021 [...] heart failur (more content not included)... Normal [facility] Tobacco Screening.on 022 Fall risk assessment a) No falls within the last year [facility] KimberlyChico Hancock DO Work Phone: Tobacco use status [facility] a) [facility] Work Phone: [facility] Screening. [facility] Work Phone: XR LSPINE 2_3 [...] JC BRAVO Date: 2022-04-24 07:14 Normal [facility] TRANSFERRINon 04-17-2022 Transferrin [Mass/Vol] 418 mg/dL Critically high 192-364 [facility] Comment on above: Performed By: #### T RANSFR #### [facility] [address] [place], [place] [address] Dr. Melissa Helm CBC AUTO DIFFon 04-16-2022 BASO # 0.2 103/ul Critically high 0.0-0.1 [facility] Comment on above: Performed By: #### C BC ####[facility] [address] [place], [place] [address]Dr. Melissa Helm Basophils/100 WBC (Bld) 1.2 % Normal 0.2-2.0 [facility] Comment on above: Performed By: #### C BC ####[facility] [address] [place] [id number]. Melissa Helm EO # 0.2 103/ul Normal 0.0-0.7 [facility] Comment on above: Performed By: #### C BC ####[facility] [address] [place] [id number]. Melissa Helm Eosinophils/100 WBC (Bld) 1.9 % Normal 0.9-7.0 [facility] Comment on above: Performed By: #### C BC ####[facility] [address] [place], [place] [address]Dr. Melissa Helm Erythrocyte distribution width (RBC) [Ratio] 22.6 % Critically high 11.0-15.0 [facility] Comment on above: Performed By: #### C BC ####[facility] [address] [place], [place] [address]Dr. Melissa Helm Hematocrit (Bld) [Volume fraction] 39.2 % Normal 36.0-48.0 [facility] Comment on above: Performed By: #### C BC ####[facility] [address] [place], [place] [address]Dr. Melissa Helm Hemoglobin (Bld) [Mass/Vol] 10.8 g/dL Critically low 12.0-16.0 [facility] Comment on above: Performed By: #### C BC ####[facility] [address] [place], [place] [address]Dr. Melissa Helm IG # 0.03 10e3/ul Normal 0.00-0.03 [facility] Comment on above: Performed By: #### C BC ####[facility] [address] [place], [place] [address]Dr. Melissa Helm IG % 0.2 % Normal 0.0-0.5 [facility] Comment on above: Performed By: #### C BC ####[facility] [address] [place], [place] [address]Dr. Melissa Helm LYMPH # 2.5 103/ul Normal 1.2-3.8 [facility] Comment on above: Performed By: #### C BC ####[facility] [address] [place] [address]Dr. Melissa Helm Lymphocytes/100 WBC (Bld) 19.8 % Critically low 20.5-60.0 [facility] Comment on above: Performed By: #### C BC ####[facility] [address] [place] [address]Dr. Melissa Helm MANUAL DIFF REQ NO Normal [facility] Comment on above: Performed By: #### C BC ####[facility] [address] [place], [place] [address]Dr. Melissa Helm MCH (RBC) [Entitic mass] 18.6 pg Critically low 26.7-34.0 [facility] Comment on above: Performed By: #### C BC ####[facility] [address] [place], [place] [address]Dr. Melissa Helm MCHC (RBC) [Mass/Vol] 27.6 g/dL Critically low 29.9-35.2 [facility] Comment on above: Performed By: #### C BC ####[facility] [address] [place], [place] [address]Dr. Melissa Helm MCV (RBC) [Entitic vol] 67.4 fL Critically low 81.0-99.0 [facility] Comment on above: Performed By: #### C BC ####[facility] [address] [place], [place] [address]Dr. Melissa Helm MONO # 1.2 103/ul Critically high 0.3-0.8 [facility] Comment on above: Performed By: #### C BC ####[facility] [address] [place], [place] [address]Dr. Melissa Helm Monocytes/100 WBC (Bld) 10.0 % Normal 1.7-12.0 [facility] Comment on above: Performed By: #### C BC ####[facility] [address] [place], [place] [address]Dr. Melissa Helm NEUT # 8.3 103/ul Critically high 1.4-6.5 [facility] Comment on above: Performed By: #### C BC ####[facility] [address] [place] [id number]. Melissa Helm Neutrophils/100 WBC (Bld) 66.9 % Normal 43.0-75.0 [facility] Comment on above: Performed By: #### C BC ####[facility] [address] [place] [address]Dr. Melissa Helm PLT 235 103/ul Normal 150-450 [facility] Comment on above: Performed By: #### C BC ####[facility] [address] [place] [address]Dr. Melissa Helm RBC 5.82 106/ul Critically high 4.20-5.40 [facility] Comment on above: Performed By: #### C BC ####[facility] [address] [place] [address]Dr. Melissa Helm WBC 12.4 103/ul Critically high 4.0-11.0 [facility] Comment on above: Performed By: #### C BC ####[facility] [address] [place] [address]Dr. Melissa Helm FERRITINon 04-16-2022 Ferritin [Mass/Vol] 27.0 ng/mL Normal 8.0-252.0 [facility] Comment on above: Performed By: #### F ETIBC, FERR ####[facility] [address] [place] [address]Dr. Melissa Helm FREE T3on 04-16-2022 FREE T3 3.09 pg/mlL Normal 2.18-3.98 [facility] Comment on above: Performed By: #### C MP, FT3, LIPID, TSH ####[facility] [address] [place] [id number]. Melissa Helm IRON AND TIBCon 04-16-2022 % SATURATION 5.4 % Normal [facility] Comment on above: Performed By: #### F ETIBC, FERR ####[facility] [address] [place], [place] [address]Dr. Melissa Helm Iron [Mass/Vol] 26.0 ug/dL Critically low 50.0-170.0 [facility] Comment on above: Performed By: #### F ETIBC, FERR ####[facility] [address] [place] [address]Dr. Melissa Helm TIBC DIRECT 483.0 ug/dL Critically high 250.0-450. 0 [facility] Comment on above: Performed By: #### F ETIBC, FERR ####[facility] [address] [place] [address]Dr. Melissa Helm LIPID PROFILEon 04-16-2022 CHOL-HDL RATIO NORM SEE BELOW Normal [facility] Comment on above: Result Comment: 3.3 - 4.4 LOW RISK 4.4 - 7.1 AVERAGE RISK 7.1 - 11.0 MODERATE RISK >11.0 HIGH RISK Performed By: #### C MP, FT3, LIPID, TSH ####[facility] [address] [place] [address]Dr. Melissa Helm Cholesterol [Mass/Vol] 131 mg/dL Normal <=200 [facility] Comment on above: Performed By: #### C MP, FT3, LIPID, TSH ####[facility] [address] [place] [address]Dr. Melissa Helm Cholesterol in HDL [Mass/Vol] 51 mg/dL Normal 40-60 [facility] Comment on above: Performed By: #### C MP, FT3, LIPID, TSH ####[facility] [address] [place] [address]Dr. Melissa Helm Cholesterol in LDL [Mass/Vol] 54.0 mg/dL Normal [facility] Comment on above: Performed By: #### C MP, FT3, LIPID, TSH ####[facility] [address] [place] [id number]. Melissa Volodymyr Cholesterol.total/Chol esterol in HDL [Mass ratio] 2.6 {ratio} Normal [facility] Comment on above: Performed By: #### C MP, FT3, LIPID, TSH ####[facility] [address] [place] [address]Dr. [place] Helm HDL NORMAL > or = 60 mg/dl - LO W CARDIOVASCULAR RISK <40 mg/dl - HIGH CARDIOVASCULAR RISK Normal [facility] Comment on above: Performed By: #### C MP, FT3, LIPID, TSH ####[facility] [address] [place] [address]Dr. Melissa Helm LDL CALC NORMAL SEE BELOW Normal [facility] Comment on above: Result Comment: <100 mg/dl OPTIMAL 100 - 129 mg/dl NEAR OR ABOVE OPTIMAL 130 - 159 mg/dl BORDERLINE HIGH 160 - 189 mg/dl HIGH >190 mg/dl VERY HIGH Performed By: #### C MP, FT3, LIPID, TSH ####[facility] [address] [place] [address]Dr. Melissa Helm Triglyceride [Mass/Vol] 130 mg/dL Normal <=150 [facility] Comment on above: Performed By: #### C MP, FT3, LIPID, TSH ####[facility] [address] [place] [address]Dr. Melissa Helm VLDL CALC 26.0 mg/dL Normal [facility] Comment on above: Performed By: #### C MP, FT3, LIPID, TSH ####[facility] [address] [place] [address]Dr. Melissa Helm PROF 14(COMP METB)on 022 Albumin [Mass/Vol] 4.0 g/dL Normal 3.4-5.0 [facility] Comment on above: Performed By: #### C MP, FT3, LIPID, TSH ####[facility] [address] [place] [address]Dr. Melissa Helm Albumin/Globulin [Mass ratio] 0.9 {ratio} Normal [facility] Comment on above: Performed By: #### C MP, FT3, LIPID, TSH ####[facility] [address] [place] [address]Dr. Melissa Helm ALP [Catalytic activity/Vol] 263 U/L Critically high 46-116 [facility] Comment on above: Performed By: #### C MP, FT3, LIPID, TSH ####[facility] [address] [place] [address]Dr. Melissa Helm ALT [Catalytic activity/Vol] 9 U/L Critically low 14-59 [facility] Comment on above: Performed By: #### C MP, FT3, LIPID, TSH ####[facility] [address] [place] [address]Dr. Melissa Helm Anion gap [Moles/Vol] 14.7 mmol/L Normal Th e [facility] Comment on above: Performed By: #### C MP, FT3, LIPID, TSH ####[facility] [address] [place] [address]Dr. Melissa Helm AST [Catalytic activity/Vol] 15 U/L Normal 15-37 [facility] Comment on above: Performed By: #### C MP, FT3, LIPID, TSH ####[facility] [address] [place] [address]Dr. Melissa Helm Bilirubin [Mass/Vol] 0.4 mg/dL Normal 0.2-1.0 [facility] [facility] Comment on above: Performed By: #### C MP, FT3, LIPID, TSH ####[facility] [address] [place], [place] [address]Dr. Melissa Helm Calcium [Mass/Vol] 9.1 mg/dL Normal 8.5-10.1 [facility] Comment on above: Performed By: #### C MP, FT3, LIPID, TSH ####[facility] [address] [place] [address]Dr. Melissa Helm Chloride [Moles/Vol] 98 mmol/L Normal 98-107 [facility] Comment on above: Performed By: #### C MP, FT3, LIPID, TSH ####[facility] [address] [place], [place] [address]Dr. Melissa Helm CO2 [Moles/Vol] 27.5 mmol/L Normal 21.0-32.0 [facility] Comment on above: Performed By: #### C MP, FT3, LIPID, TSH ####[facility] [address] [place] [address]Dr. Melissa Helm Creatinine [Mass/Vol] 1.08 mg/dL Critically high 0.55-1.02 [facility] Comment on above: Performed By: #### C MP, FT3, LIPID, TSH ####[facility] [address] [place] [address]Dr. Melissa Helm EGFR-AF VIETNAMESE >60 Normal >=60 [facility] Comment on above: Performed By: #### C MP, FT3, LIPID, TSH ####[facility] [address] [place] [address]Dr. Melissa Helm EGFR-NON AF VIETNAMESE 53 mL/min/1.73m2 Critically low >=60 [facility] Comment on above: Performed By: #### C MP, FT3, LIPID, TSH ####[facility] [address] [place] [address]Dr. Melissa Helm Globulin (S) [Mass/Vol] 4.3 g/dL Normal [facility] Comment on above: Performed By: #### C MP, FT3, LIPID, TSH ####[facility] [address] [place], [place] [address]Dr. Melissa Helm Glucose [Mass/Vol] 80 mg/dL Normal 74-106 [facility] Comment on above: Performed By: #### C MP, FT3, LIPID, TSH ####[facility] [address] [place] [address]Dr. Melissa Helm Potassium [Moles/Vol] 3.2 mmol/L Critically low 3.5-5.1 [facility] Comment on above: Performed By: #### C MP, FT3, LIPID, TSH ####[facility] [address] [place] [address]Dr. Melissa Helm Protein [Mass/Vol] 8.3 g/dL Critically high 6.4-8.2 [facility] Comment on above: Performed By: #### C MP, FT3, LIPID, TSH ####[facility] [address] [place] [address]Dr. Melissa Helm Sodium [Moles/Vol] 137 mmol/L Normal 136-145 [facility] Comment on above: Performed By: #### C MP, FT3, LIPID, TSH ####[facility] [address] [place] [address]Dr. Melissa Helm Urea nitrogen [Mass/Vol] 22.0 mg/dL Critically high 7.0-18.0 [facility] Comment on above: Performed By: #### C MP, FT3, LIPID, TSH ####[facility] [address] [place] [address]Dr. Melissa Helm Urea nitrogen/Creatinine [Mass ratio] 20.4 mg/mg Normal [facility] Comment on above: Performed By: #### C MP, FT3, LIPID, TSH ####[facility] [address] [place] [address]Dr. Melissa Helm TSHon 04-16-2022 TSH 30.570 uIU/mL Critically high 0.358-3.74 0 [facility] Comment on above: Performed By: #### C MP, FT3, LIPID, TSH ####[facility] [address] [place] [address]Dr. Melissa Helm ICD REMOTE CHECKon 2 AV Delay Adaptive Paced Minimum (ms) 350 ms [facility] AV Delay Adaptive Rate Maximum (bpm) 90 {beats}/min [facility] AV Delay Adaptive Rate Minimum (bpm) 75 {beats}/min [facility] AV Delay Adaptive Sensed Minimum (ms) 250 ms [facility] AV Delay Adaptive Status ENABLED [facility] AV Delay Paced (ms) 100 ms [facility] AV Delay Sensed (ms) 70 ms [facility] Battery Voltage 2.87 V [facility] Scott LV Pacing Polarity BI [facility] RA Pacing Amplitude (volts) 2 V [facility] RA Pacing Polarity BI [facility] RA Pacing Pulse Width (ms) 0.4 ms [facility] RA Sensing Amplitude (mvolts) 0.3 mV [facility] RA Sensing Blanking Period (ms) 150 ms [facility] RA Sensing Polarity BI [facility] RA Sensing Refractory Period (ms) 250 ms [facility] RV Pacing Amplitude (volts) 3 V [facility] RV Pacing Polarity BI [facility] RV Pacing Pulse Width (ms) 0.4 ms [facility] RV Sensing Amplitude (mvolts) 0.3 mV [facility] RV Sensing Blanking Period (ms) 200 ms [facility] RV Sensing Polarity BI [facility] Detection Configuration (Vent) 2 - Zone [facility] FastVT_Detection Interval 450 ms [facility] FastVT_Therapy Configuration 2 ATP(s) + 0 Shock(s) [facility] ICD AFIB DetectionStatus DISABLED [facility] ICD ATAF DetectionInterval ms 450 ms [facility] ICD ATAF DetectionStatus ENABLED [facility] ICD ATAF TherapyConfiguration 2 ATP(s) + 0 Shock(s) [facility] ICD FastVT DetectionStatus ENABLED [facility] ICD-ADLRATE_BPM 85 {beats}/min [facility] ICD-AMS EPISODES 133 {beats}/min [facility] ICD-ATP Episodes (Vent) 0 [facility] ICD-ATRIALFIBRILLATION 339 [facility] ICD-ATRIALTACHYCARDIA 339 [facility] ICD-ATRIALTACHYCARDIA 5 [facility] ICD-ATRIALTACHYCARDIA 7 [facility] ICD-Counters Cleared Date 09/23/2016 [facility] ICD-Device Sri GROSS [facility] ICD-Fast Ventricular Tachycardia 7 [facility] ICD-LEADIMPEDANCEATRIA L 342 ohm [facility] ICD-Percent Pacing (Atrial) 58.38 % [facility] ICD-Percent Pacing (Vent) 88.05 % [facility] ICD-PMT Intervention ENABLED [facility] ICD-PVC Intervention ENABLED [facility] ICD-Rate Modulation Acceleration Reaction 30 s [facility] ICD-Rate Modulation Deceleration Exercise [facility] ICD-Rate Modulation [place] 3 [facility] ICD-Rate Modulation Threshold MediumHigh [facility] ICD-Shocks Aborted (Vent) 0 [facility] EDI-UOFUVA-EKODGEQBW 0 [facility] ICD-SHOCKSABORTED 0 [facility] ICD-SHOCKSDELIVEREDVEN TRICULAR 0 [facility] ICD-Ventricular Fibrillation 0 [facility] Implant Date 07/03/2005 [facility] Implant Date 11/30/2002 [facility] Lead Impedance (LV) 4047 ohm [facility] Lead Impedance (RV) 703 ohm [facility] Lead Impedance High Voltage 57 ohm [facility] Lead1 Sri GROSS [facility] Lead2 Sri GROSS [facility] Lead3 Mfg GDT [facility] Location LV [facility] Location RA [facility] Location RV [facility] Lower Rate (bpm) 80 {beats}/min [facility] LV PACING % 0 % [facility] Max Sensor Rate (bpm) 90 {beats}/min [facility] MDT_PROG_TACHY_ZONE_DE TECTIONS_STATUS ENABLED [facility] Model [id number] Viva XT PANCAKE PROFESSIONAL-D [facility] Model 4196 Attain Ability MRI SureScan [facility] Model 5076 CapSureFix Novus [facility] Model 0144 Endotak [employer]urance Rx [facility] Pacing Mode DDDR [facility] Serial Number [id number] [facility] Serial Number [id number] [facility] Serial Number [id number] [facility] Serial Number [id number] [facility] Test Charge Energy 18 J [facility] Test Charge Time 4.354 [facility] Therapy Status (Vent) Enabled [facility] Thresh RA Capture Amplitude (volts) 0.625 V [facility] Thresh RA Capture Duration (ms) 0.4 ms [facility] Thresh RA Sensing Amplitude (mvolts) 2 mV [facility] Thresh RV Capture Amplitude (VOLTS) 1.5 V [facility] Thresh RV Capture Duration (MS) 0.4 ms [facility] Thresh RV Sensing Amplitude (MVOLTS) 11.625 mV [facility] Tracking Rate (bpm) 90 {beats}/min [facility] VF Zone Detection Interval 450 ms [facility] VF Zone Therapy Configuration 2 ATP(s) + 0 Shock(s) [facility] No Panel Informationon 04-12 BLANK _ [facility] ICD-ATRIALTACHYCARDIA 0 [facility] ICD-Fast Ventricular Tachycardia 0 [facility] Implant Date 09/23/2016 [facility] COAGULATION SCREENon 022 aPTT Coag (Bld) [Time] 29 s Normal 26 - 39 [facility] Comment on above: Result Comment: THE APTT IS NO LONGER USED FOR MONITORING UNFRACTIONATED HEPARIN THERAPY. FOR MONITORING HEPARIN THERAPY, USE THE HEPARIN ASSAY. Performed By: #### C OAGS #### [address] [id number] PT Coag (PPP) [Time] 16.1 s High 9.8 - 13.4 [facility] Comment on above: Performed By: #### C OAGS #### [facility] [address] [place], [place] [id number] PT, INR 1.4 High 0.9 - 1.1 [facility] Comment on above: Performed By: #### C OAGS #### [facility] [address] [place], [place] [id number] Discharge Igvuill1xu 022 Discharge Profile2 Discharge Orders: DNAR: Code Status at Discharge: Full Code Appointments: Follow-Up Appointment 02: Physician/Dept/ServiceDrTarun Nunez Reason for ReferralFollow-up Scheduled Date/Ykdc87-Qmo-2488 13:20 [facility] Office Phone [phone] Electronic Signatures: Axel Rangel (COOR) (Signed 21-Jan-2022 09:13) Authored: Discharge Orders, Appointments, Gold Form - Special Education Administrator Summary Last Updated: 21-Jan-2022 09:13 by Axel Rangel (COOR) Normal [facility] - Coagulationon 0 01-21-2022 aPTT Coag (PPP) [Time] 29 s 26 - [address] Work Phone: Comment on above: THE APTT IS NO LONGE R USED FOR MONITORING UNFRACTIONATED HEPARIN THERAPY. FOR MONITORING HEPARIN THERAPY, USE THE HEPARIN ASSAY. INR Coag (PPP) [Relative time] 1.4 {INR} above high threshold 0.9 - 1.[address] Work Phone: PT Coag (PPP) [Time] 16.1 s above high threshold 9.8 - 13.[address] Work Phone: No Panel Informationon 01-21 [email or web address] ?[email or web address]&Date =21-01-2022&Time=17%3a39% 3a41%3a00&TestType=ECG&Si te=11&OutputType=PDF&Ext= PDF [facility] [address] [place] Work Phone: Ventricular-paced rhythm [facility] [address] [place] Work Phone: [phone] Abnormal [facility] [address] [place] Work Phone: [phone] 1 [facility] [address] [place] Work Phone: [phone] 1 [facility] [address] [place] Work Phone: [phone] 1 [facility] [address] [place] Work Phone: [phone] 1 [facility] [address] [place] Work Phone: [phone] 1 [facility] [address] [place] Work Phone: [phone] 1 [facility] [address] [place] Work Phone: [phone] 1 [facility] [address] [place] Work Phone: [phone] 1 [facility] [address] [place] Work Phone: [phone] 1 [facility] [address] [place] Work Phone: [phone] 1 [facility] [address] [place] Work Phone: [phone] 1 [facility] [address] [place] Work Phone: [phone] [email or web address] ?NaivedxJO=[email or web address]&Date =21-01-2022&Time=09%3a40% 3a37%3a00&TestType=ECG&Si te=11&OutputType=PDF&Ext= PDF [facility] [address] [place] Work Phone: [phone] Atrial-paced rhythm [facility] [address] [place] Work Phone: Abnormal -[facility] [address] [place] Work Phone: [phone] 1 -[facility] [address] [place] Work Phone: [phone] 1 [facility] [address] [place] Work Phone: [phone] 1 [facility] [address] [place] Work Phone: [phone] 1 [facility] [address] [place] Work Phone: [phone] 1 [facility] [address] [place] Work Phone: [phone] 1 [facility] [address] [place] Work Phone: [phone] 1 [facility] [address] [place] Work Phone: [phone] 1 [facility] [address] [place] Work Phone: [phone] [facility] [address] [place] Work Phone: [phone] 1 [facility] [address] [place] Work Phone: [phone] [facility] [address] [place] Work Phone: [phone] 1 [facility] [address] [place] Work Phone: [phone] 1 [facility] [address] [place] Work Phone: [phone] [facility] [address] [place] Work Phone: Order Reconciliationon 01-21 Order Reconciliation Page 1 Admission Reconciliation Document Reconciliation Type: Observation requested on behalf of Yessi Miller (Advanced Practice Nurse) done by Yessi Miller (FUTURES TRADER-PATENT ENGINEER) Observation - Reconciliation: 21-Jan-2022 16:52 by: Yessi Miller (FUTURES TRADER-PATENT ENGINEER) Home MedicationsEnteredLast Dose TakenReconciled with current Order Reconciliation Comment/ Additional Information amiodarone 400 mg oral tablet 1 tab(s) orally once a pcc85-Gau-576321-Jan-2022 AM Amiodarone Tablet (CORDARONE; PACERONE)DOSE = 400 [...] oral tablet 1 tab(s) orally once a zjb31-Sky-213821-Jan-2022 PM Atorvastatin Tablet (LIPITOR)DOSE = 80 mg Oral Daily atorvastatin 80 mg oral tablet continued as the inpatient order Atorvastatin wtktczylei-fbbw-kkyvvyjf 50-300-40mg 1 cap(s) orally 2 times a xxa80-Dxt-346721-Jan-2022 Reviewed and Held escitalopram 20 mg oral tablet 1 tab(s) orally once a yju40-Ywj-568221-Jan-2022 AM Escitalopram Tablet (LEXAPRO)DOSE = 20 mg Oral Daily escitalopram 20 mg oral tablet continued as the inpatient order Escitalopram KlonoPIN Wafer 0.5 mg oral tablet, disintegrating 1 tab(s) orally 3 times daily 707974-Mtx-3670 PM clonazePAM (KLONOPIN) TabletDOSE = 0.5 mg Oral Every 8 HoursKlonoPIN Wafer 0.5 mg oral tablet, disintegrating continued as the inpatient order clonazePAM (KLONOPIN) Mag-Ox 400 oral tablet 1 tab(s) orally 2 times a reh62-Qjq-696532-Ekp-5862 AM Magnesium Oxide Tablet (Mag-Ox)DOSE = 400 mg Oral DailyMag-Ox 400 oral tablet continued as the inpatient order Magnesium Oxide Metoprolol Succinate ER 100 mg oral tablet, extended release 1 tab(s) orally once a vqo66-Oio-789846-Nbe-0493 PM Metoprolol Succinate Extended Release Tablet, Extended Release (TOPROL-XL)DOSE = 100 mg Oral DailyMetoprolol Succinate ER 100 mg oral tablet, extended release continued as the inpatient order Metoprolol Succinate Extended Release Multiple Vitamins oral tablet, dispersible 1 tab(s) orally once a day 750462-Xch-8274 Reviewed and Held Nitrostat 0.4 mg sublingual tablet 1 tab(s) sublingual every 5 minutes, As Wxoblu45-Nct-3386ZIVSZRV UNKNOWN Nitroglycerin SubLingual Tablet (NITROSTAT)DOSE = 0.4 mg SubLingual Every 5 Minutes, PRN AnginaNitrostat 0.4 mg sublingual tablet continued as the inpatient order Nitroglycerin SubLingual omeprazole 40 mg oral delayed release capsule 1 cap(s) orally once a day 618616-Die-1366 AM Pantoprazole Enteric Coated Tablet (PROTONIX)DOSE = 40 mg Oral DailyNotes from Pharmacy: Substitution for Omeprazole 40 mg Oral Capsule Dailyomeprazole 40 mg oral delayed release capsule continued as the inpatient order Pantoprazole Potassium Chloride (Bqw-Oyyv-Zjx M20) 20 mEq oral tablet, extended release 1 tab(s) orally once a foe50-Wtb-399199-Vst-7675 AM Potassium Chloride Extended Release Tablet, Extended ReleaseDOSE = 20 mEq Oral DailyPotassium Chloride (Diz-Gbon-Xgm M20) 20 mEq oral tablet, extended release continued as the inpatient order Potassium Chloride Extended Release rOPINIRole 0.25 mg oral tablet 3 tab(s) orally once a day (at bedtime) 012929-Fsr-8781 PM rOPINIRole (REQUIP) TabletDOSE = 0.75 mg Oral At BedtimerOPINIRole 0.25 mg oral tablet continued as the inpatient order rOPINIRole (REQUIP) torsemide 20 mg oral tablet 1 tab(s) orally once a crd28-Oye-429613-Xfy-9532 AM Torsemide Tablet (DEMADEX)DOSE = 20 mg Oral Dailytorsemide 20 mg oral tablet continued as the inpatient order Torsemide traZODone 50 mg oral tablet 1 tab(s) orally once a day (at bedtime), As Needed 870315-Iht-0589 PM traZODone Tablet (DESYREL)DOSE = 50 mg Oral At Bedtime, PRN InsomniatraZODone 50 mg oral tablet continued as the inpatient order traZODone warfarin 5 mg oral tablet 1 tab(s) orally once a day. Resume 01/22/2022. 8:00 AM Reviewed and Held Additional Current [...] mL Run at: 10 mL/hr IntraVenous Normal [facility] Order Reconciliation Page 1 Discharge Reconciliation Document Reconciliation Type: Discharge requested on behalf of Yessi Miller (Advanced Practice Nurse) done by Yessi Miller (FUTURES TRADER-[facility]) Discharge - Reconciliation: 21-Jan-2022 16:48 by: Yessi Miller (FUTURES TRADER-PATENT ENGINEER) Home Medications EnteredHOME MEDICATIONS AT DISCHARGE DateReconciliation [...] continued as atorvastatin 80 mg oral tablet htwjdoxcrw-qvjr-airlthce 50-300-40mg 1 cap(s) orally 2 times a day 30-Dec-2021 10:27 cslpdddvsl-ujla-mvygtzlu 50-300-40mg 1 cap(s) orally 2 times a day 30-Dec-2021 10:27 zykvrrudud-lcbv-ykzutrny 50-300-40mg is continued as bfbvtzhegx-ycmn-vmzisfyi 50-300-40mg escitalopram 20 mg oral tablet 1 [...] mg oral delayed release capsule Potassium Chloride (Ruv-Isnh-Gwa M20) 20 mEq oral tablet, extended release 1 tab(s) orally once a day 30-Dec-2021 10:33 Potassium Chloride (Dcd-Warb-Mes M20) 20 mEq oral tablet, extended release 1 tab(s) orally once a day 30-Dec-2021 10:33 Potassium Chloride (Vik-Lyjy-Xyj M20) 20 mEq oral tablet, extended release is continued as Potassium Chloride (Ljr-Kbxv-Qzw M20) 20 mEq oral tablet, extended release [...] and modifie (more content not included)... Normal [facility] Patient Profile - Preop v3on 01-21-2022 Patient Profile - Preop v3 Patient Profile - Preop: Initial Info: Patient DemographicsName: ESSENCE VINCENT Date: 1970 Address: [address] [place] [address] Date/Time Tvtlzs42-Vcr-6634 Primary Phone [phone] How to be AddressedSherry Spoken Language PreferredEnglish Source of Informationpatient Stated Reason for AdmissionTEE/EP study and ablation Primary Contact Name and NumberDepeggy Singer (significant other) [phone] Limitations on Visitors/Phone Callsnone Medications Brought to Hospital[facility] General Health: Weight in kg76.6 kilogram(s) Weight in bwc459.8 pound(s) Weight Methodactual (measured) Scale Typestanding Height [...] valvular disease; dyslipidemia Cardiovascular Management Strategiesroutine screening; rn medical inpatient services; medication therapy Barriers to Managing Healthnone Relationship/Environ: Lives Withalone Living Arrangementsapartment Resource/Environmental Concernsnone Anticipated Transition [facility] Services Anticipated at Transitionnone Tobacco Use: Tobacco Useno Pre-op Checklist: Arrival Jvpo34-Omf-7128 Arrival Time09:21 Procedure TypeTEE/EPS/Ablation NPOyes Last Food Ukiugb12-Tno-6906 23:00 Last Clear Fluid Skqzto26-Dei-0482 07:00 ID Band On Patientpatient ID (name), [...] Updated: 21-Jan-2022 11:18 by Nannette Alvarez (ELZA) [facility] Transesophageal Echoon 01-21 Transesophageal Echo [place] [address] TRANSESOPHAGEAL ECHOCARDIOGRAM REPORT Patient Name: ESSENCE Gamez Mary Physician: [id number] Soco Bhardwaj MD [facility] Study Date: 01/21/2022 Referring [id number] SOCO BHARDWAJ Physician: MRN/PID: [id number] PCP: Accession/Order#: [id number] Department 2S CathLab Location: Date of : 1970 Fellow: Gender: F Nurse: Yolanda Farrell RN Admit Date: 01/21/2022 Office Manager Receptionist: Trina Obregon [facility] Admission Status: Outpatient Additional Staff: Height: 157.00 cm CC Report to: Weight: 76.00 kg Study Type: Transesophageal Echo BSA: 1.77 m2 Blood Pressure: 128 /63 mmHg Diagnosis/ICD: Z01.810-Encounter for preprocedural cardiovascular examination Indication: PRE-EP Procedure/CPT: JOVITA Complete-79094; Moderate Sedation Services initial 15 minutes patient >5 years-47723 Study Detail: The following Echo studies were [...] RV Syst Pressure: 40.5 mmHg (< 30mmHg) [id number] Soco Bhardwaj MD Electronically signed on 01/21/2022 at 2:53:25 PM Final Normal [facility] Transesophageal Echo MP-N [facility] [address] Work Phone: ICD REMOTE CHECKon 2 AV Delay Adaptive Paced Minimum (ms) 350 ms [facility] AV Delay Adaptive Rate Maximum (bpm) 90 {beats}/min [facility] AV Delay Adaptive Rate Minimum (bpm) 75 {beats}/min [facility] AV Delay Adaptive Sensed Minimum (ms) 250 ms [facility] AV Delay Adaptive Status ENABLED [facility] AV Delay Paced (ms) 100 ms [facility] AV Delay Sensed (ms) 70 ms [facility] Battery Voltage 2.9 V [facility] Scott LV Pacing Polarity BI [facility] RA Pacing Amplitude (volts) 2 V [facility] RA Pacing Polarity BI [facility] RA Pacing Pulse Width (ms) 0.4 ms [facility] RA Sensing Amplitude (mvolts) 0.3 mV [facility] RA Sensing Blanking Period (ms) 150 ms [facility] RA Sensing Polarity BI [facility] RA Sensing Refractory Period (ms) 250 ms [facility] RV Pacing Amplitude (volts) 3 V [facility] RV Pacing Polarity BI [facility] RV Pacing Pulse Width (ms) 0.4 ms [facility] RV Sensing Amplitude (mvolts) 0.3 mV [facility] RV Sensing Blanking Period (ms) 200 ms [facility] RV Sensing Polarity BI [facility] Detection Configuration (Vent) 2 - Zone [facility] FastVT_Detection Interval 450 ms [facility] FastVT_Therapy Configuration 2 ATP(s) + 0 Shock(s) [facility] ICD ATAF DetectionInterval ms 450 ms [facility] ICD ATAF DetectionStatus ENABLED [facility] ICD ATAF TherapyConfiguration 2 ATP(s) + 0 Shock(s) [facility] ICD FastVT DetectionStatus ENABLED [facility] ICD-ADLRATE_BPM 85 {beats}/min [facility] ICD-AMS EPISODES 133 {beats}/min [facility] ICD-ATP Episodes (Vent) 0 [facility] ICD-ATRIALFIBRILLATION [address] [facility] ICD-ATRIALTACHYCARDIA 2063 [facility] ICD-ATRIALTACHYCARDIA [facility] ICD-Counters Cleared Date 09/23/2016 [facility] ICD-Device Mfg MDT [facility] ICD-LEADIMPEDANCEATRIA L 304 ohm [facility] ICD-Percent Pacing (Atrial) 24.69 % [facility] ICD-Percent Pacing (Vent) 20.79 % [facility] ICD-PMT Intervention ENABLED [facility] ICD-PVC Intervention ENABLED [facility] ICD-Rate Modulation Acceleration Reaction 30 s [facility] ICD-Rate Modulation Deceleration Exercise [facility] ICD-Rate Modulation [place] 3 [facility] ICD-Rate Modulation Threshold MediumHigh [facility] ICD-Shocks Aborted (Vent) 0 [facility] FBU-QSIOID-XPUTZYJMJ 0 [facility] ICD-SHOCKSABORTED 0 [facility] ICD-SHOCKSDELIVEREDVEN TRICULAR 0 [facility] ICD-Ventricular Fibrillation 0 [facility] Implant Date 07/03/2005 [facility] Implant Date 11/30/2002 [facility] Lead Impedance (LV) 4047 ohm [facility] Lead Impedance (RV) 836 ohm [facility] Lead Impedance High Voltage 54 ohm [facility] Lead1 Mfg MDT [facility] Lead2 Mfg MDT [facility] Lead3 Mfg GDT [facility] Location LV [facility] Location RA [facility] Location RV [facility] Lower Rate (bpm) 60 {beats}/min [facility] LV PACING % 0 % [facility] Max Sensor Rate (bpm) 90 {beats}/min [facility] MDT_PROG_TACHY_ZONE_DE TECTIONS_STATUS ENABLED [facility] Model [id number] Viva XT PANCAKE PROFESSIONAL-D [facility] Model 4196 Attain Ability MRI SureScan [facility] Model 5076 CapSureFix Novus [facility] [facility] Model 0144 [employer] [facility] Pacing Mode DDDR [facility] Serial Number [id number] [facility] Serial Number [id number] [facility] Serial Number [id number] [facility] Serial Number [id number] [facility] Test Charge Energy 18 J [facility] Test Charge Time 4.324 [facility] Therapy Status (Vent) Enabled [facility] Thresh RA Capture Amplitude (volts) 0.625 V [facility] Thresh RA Capture Duration (ms) 0.4 ms [facility] Thresh RA Sensing Amplitude (mvolts) 2 mV [facility] Thresh RV Capture Amplitude (VOLTS) 1.375 V [facility] Thresh RV Capture Duration (MS) 0.4 ms [facility] Thresh RV Sensing Amplitude (MVOLTS) 10.125 mV [facility] Tracking Rate (bpm) 90 {beats}/min C [facility] VF Zone Detection Interval 450 ms [facility] VF Zone Therapy Configuration 2 ATP(s) + 0 Shock(s) [facility] No Panel Informationon 01-14 BLANK _ [facility] ICD-ATRIALTACHYCARDIA 0 [facility] ICD-Fast Ventricular Tachycardia 0 [facility] Implant Date 09/23/2016 [facility] Prothrombin Time INRon 12-23 INR Coag (PPP) [Relative time] 3.3 {INR} [employer] Other Prothrombin Time INR [facility] [employer] Other Prothrombin Time INRon 12-09 INR Coag (PPP) [Relative time] 1.2 {INR} [employer] Other Prothrombin Time INR [facility] [employer] Other Office Visit (Cardiology)on 12-05-2021 Follow-up visit [...] Lab Procedures; Status:Active - Retrospective Authorization; Requested for:05Dec2021; Atrial flutter, unspecified type, Pre-operative cardiovascular examination Complete Blood Count + Differential; Status:Active - Retrospective Authorization; Requested for:05Dec2021; Complete Blood Count; Status:Active - Retrospective Authorization; Requested for:[id number]; CORONAVIRUS 2019 RNA BY PCR, SCREEN ASYMPTOMATIC AMBULATORY; Status:Hold For - Specimen/Data Collection,Retrospective Authorization; Requested for:[id number]; ? : Unknown RESIDENT IN CONGREGATE CARE SETTING? : Unknown ICU? : No HOSPITALIZED (OR PLANNED TO BE ADMITTED)? : No SYMPTOMATIC DEFINED BY CDC? : No EMPLOYED IN HEALTHCARE? : Unknown FIRST COVID NASAL SWAB TEST? : Unknown PT/INR; Status:Active - Retrospective Authorization; Requested for:[id number]; Atrial tachycardia Transesophageal Echo; Status:Hold For - Scheduling,Retrospective Authorization; Requested for:[id number]; Health Maintenance Avoid alcoholic beverages.; Status:Complete - Retrospective Authorization; Done: [id number] Avoid foods and beverages that contain caffeine.; Status:Complete - Retrospective Authorization; Done: [id number] Begin or continue regular aerobic exercise. Gradually work up to at least 3 sessions of 30 minutes of exercise a week.; Status:Complete - Retrospective Authorization; Done: [id number] Diets that are low in carbohydrates and high in protein are very popular for weight loss.; Status:Complete - Retrospective Authorization; Done: [id number] Eat a low fat and low cholesterol diet.; Status:Complete - Retrospective Authorization; Done: [id number] Losing just 5 to 10 pounds may lower your risk of health problems.; Status:Complete - Retrospective Authorization; Done: [id number] Please bring all medicines, vitamins, and herbal supplements with you when you come to the office.; Status:Complete - Retrospective Authorization; Done: [id number] Restrict the salt in your diet by avoiding highly salted foods.; Status:Complete - Retrospective Authorization; Done: [id number] SocHx: Former smoker Tobacco Use Screening; Status:Complete; Done: [id number] Patient Instructions HOLD WARFARIN 4 DAYS PRIOR TO PROCEDURE, BRIDGE WITH LOVENOX. GIVE 1 INJECTIONS TWICE A DAY 2 DAYS PRIOR, 1 INJECTION THE AM THE DAY BEFORE THE PROCEDURE.PT HAS LOVENOX AT HOME. HOLD MULTI VITAMIN X 1 WEEK. WILL SCHEDULE AN EP STUDY, AFLUTTER ABLA. By signing my name below, I, Latesha Burch CMA,Scribe, attest that this documentation has been prepared under the direction and in the presence of Dr. Margareth Nunez MD, FACC, FACP, FHRS. The provider reviewed the following test(s) and result(s) with the patient: ECG Chief Complaint New patient referred by Dr. Hoskins for possible [facility]. [facility] Adult Risk Screening Initial Fall [...] atrial flutter. She has remote history of [place] , cardiogenic shock, PCI circumflex and iABP, with persistent severe LV dysfunction. She later occluded her cicumflex. Years later, she had HF and severe MR and underwent mitral valve repair at [facility]. She had recurrent VT and atrial arrhythmias, and underwent several ablations and repeat percutaneous MVR at [facility]. After her MVR and ablation in [...] syncope, palpitat (more content not included)... [email or web address] Tobacco Screening.on 022 Fall risk assessment a) No falls within the last year [facility] [employer] 320 DO Work Phone: Tobacco use status CP b) No [facility] [employer] 320 DO Work Phone: Tobacco Screening. Yes [facility] [employer] [place] [employer] DO Work Phone: Prothrombin Time INRon 11-19 INR Coag (PPP) [Relative time] 1.59 {INR} [employer] Other Prothrombin Time INR [facility] [employer] Other Prothrombin Time INRon 11-11 INR Coag (PPP) [Relative time] 2.2 {INR} [employer] Other Prothrombin Time INR [facility] [employer] Other Prothrombin Time INRon 11-04 INR Coag (PPP) [Relative time] 1.1 {INR} [employer] Other Prothrombin Time INR [facility] [employer] Other Prothrombin Time INRon 10-29 INR Coag (PPP) [Relative time] 1.22 {INR} [employer] Other Prothrombin Time INR [facility] [employer] Other Prothrombin Time INRon 10-23 INR Coag (PPP) [Relative time] 1.29 {INR} [employer] Other Prothrombin Time INR [facility] [employer] Other Activated partial thrombopla stin time (aPTT) in platelet poor plasma by coagulation aon 10-13-2021 aPTT Coag (PPP) [Time] 31.8 s 25.1-36.5 Fi [facility] Amphetamine Screen Ql (U)on 10-13-2021 Amphetamines Ql (U) Negative Negative [facility] Automated erythrocytes count in urine sediment (number/area)on 10-13-2021 RBC Auto (Urine sed) [#/Area] 1-2 [HPF] [facility] Automated leukocytes count i n urine sediment (number/area)on 10-13-2021 WBC Auto (Urine sed) [#/Area] 20-49 [HPF] [facility] Automated urine hyaline cast s count (number/volume)on 10-13-2021 Hyaline casts Auto (U) [#/Vol] None seen [LPF] [facility] Barbiturates [Presence] in U rineon 10-13-2021 Barbiturates Ql (U) Negative Negative [facility] Basophils Auto (Bld) [#/Vol] on 10-13-2021 Basophils (Bld) [#/Vol] 0.1 10*3/uL 0.0-0.2 [facility] Basophils/100 WBC Auto (Bld) on 10-13-2021 Basophils/100 WBC (Bld) 0.9 % [facility] Benzodiazepines [Presence] i n Urineon 10-13-2021 Benzodiazepines Ql (U) Negative Negative [facility] Bilirubin Test strip Ql (U)o n 10-13-2021 Bilirubin Ql (U) Negative Negative [facility] Blood anisocytosis detection on 10-13-2021 Anisocytosis Ql (Bld) Marked [facility] Blood hemoglobin measurement (mass/volume)on 10-13-2021 Hemoglobin (Bld) [Mass/Vol] 11.7 g/dL 11.8-15.4 [facility] Blood leukocytes automated c ount (number/volume)on 10-13-2021 WBC (Bld) [#/Vol] 11.4 10*3/uL 4.5-11.0 [facility] Blood polychromasia detectio n by light microscopyon 10-13-2021 Polychromasia LM Ql (Bld) Slight [facility] Body fluid albumin measureme nt (mass/volume)on 10-13-2021 Albumin (Body fld) [Mass/Vol] 3.0 g/dL 3.2-5.5 [facility] COVID-19 SOFIAon 10-13-2021 SARS-CoV+SARS-CoV-2 (COVID-19) Ag IA.rapid Ql (Resp) Negative Negative [facility] Comment on above: This is a duplicate Maranda SARS Antigen (CAIT) result to be used for statistical tracking purpose only. Cannabinoids [Presence] in U rine by Screen methodon 10-13-2021 Cannabinoids Screen Ql (U) Positive Negative [facility] Comment on above: These are unconfirme d results and should not be used for legal purposes. Drug Cut-Off Concentration: AMPH 1000 ng/mL ALESSANDRO 200 ng/mL RHINA 200 ng/mL COCM 300 ng/mL OP 300 ng/mL PCP 25 ng/mL THC 20 ng/mL Casts typing in urine sedime nt by light microscopyon 10-13-2021 Casts LM Nom (Urine sed) None seen [LPF] None Seen [facility] Color Auto (U)on 10-13-2021 Color (U) Yellow Yellow [facility] Creatine kinase [Enzymatic a ctivity/volume] in Serum or Plasmaon 10-13-2021 CK [Catalytic activity/Vol] 61 U/L [facility] Creatinine and Glomerular fi ltration rate.predicted panel (S/P/Bld)on 10-13-2021 Creatinine [Mass/Vol] 3.62 mg/dL 0.44-1.03 [facility] Digoxin [Mass/volume] in Ser um or Plasmaon 10-13-2021 Digoxin [Mass/Vol] 8.7 ng/mL 0.9-2.0 [facility] Comment on above: Critical valueresult calledat 1837 on 10/13/21Last dose: - Eosinophils Auto (Bld) [#/Vo l]on 10-13-2021 Eosinophils (Bld) [#/Vol] 0.0 10*3/uL 0.0-0.45 [facility] Eosinophils/100 WBC Auto (Bl d)on 10-13-2021 Eosinophils/100 WBC (Bld) 0.0 % [facility] Erythrocyte distribution wid th Auto (RBC) [Ratio]on 10-13-2021 Erythrocyte distribution width (RBC) [Ratio] 23.1 % 11.9-15.3 [facility] Estimated glomerular filtrat ion rate (GFR) non- Americanon 10-13-2021 GFR/1.73 sq M.predicted among non-blacks MDRD (S/P/Bld) [Vol rate/Area] 13 mL/Min [facility] Globulin Calc (S) [Mass/Vol] on 10-13-2021 Globulin (S) [Mass/Vol] 3.2 g/dL [facility] Haptoglobin [Mass/volume] in Serum or Plasmaon 10-13-2021 Haptoglobin [Mass/Vol] 175 mg/dL 37-246 Fi [facility] Hematocrit Auto (Bld) [Volum e fraction]on 10-13-2021 Hematocrit (Bld) [Volume fraction] 38.3 % 34.0-46.4 [facility] Hypochromia detectionon 09-30 Hypochromia Ql (Bld) Slight [facility] Ketones Auto test strip (U) [Mass/Vol]on 10-13-2021 Ketones (U) [Mass/Vol] Negative Negative Fi [facility] Laboratory - Chemistry and C hemistry - challengeon 10-13-2021 Natriuretic peptide B (Bld) [Mass/Vol] 279.0 pg/mL 5-100 [facility] Laboratory - Coagulationon 0 10-13-2021 PT Coag (PPP) [Time] 23.0 s 9.0-12.9 [facility] Laboratory - Drug toxicology on 10-13-2021 Opiates Ql (U) Negative Negative [facility] Laboratory - Hematology and Cell countson 10-13-2021 Nucleated RBC/100 WBC (Bld) [Ratio] 0.1 % 0-0.5 [facility] Lactate dehydrogenase measur ement (enzymatic activity/volume)on 10-13-2021 LDH (Unsp spec) [Catalytic activity/Vol] 310 U/L 45-190 [facility] Lymphocytes Auto (Bld) [#/Vo l]on 10-13-2021 Lymphocytes (Bld) [#/Vol] 1.1 10*3/uL 1.00-4.8 [facility] Lymphocytes/100 WBC Auto (Bl d)on 10-13-2021 Lymphocytes/100 WBC (Bld) 9.5 % [facility] MCH Auto (RBC) [Entitic mass ]on 10-13-2021 MCH (RBC) [Entitic mass] 20.4 pg 24.7-34.3 [facility] MCHC Auto (RBC) [Mass/Vol]on 10-13-2021 MCHC (RBC) [Mass/Vol] 30.5 g/dL 32.0-35.0 [facility] MCV Auto (RBC) [Entitic vol] on 10-13-2021 MCV (RBC) [Entitic vol] 67.0 fL 80-100 [facility] Monocytes Auto (Bld) [#/Vol] on 10-13-2021 Monocytes (Bld) [#/Vol] 0.9 10*3/uL 0.0-0.8 [facility] Monocytes/100 WBC Auto (Bld) on 10-13-2021 Monocytes/100 WBC (Bld) 7.8 % [facility] Neutrophils Auto (Bld) [#/Vo l]on 10-13-2021 Neutrophils (Bld) [#/Vol] 9.3 10*3/uL 1.8-7.7 [facility] Neutrophils/100 WBC Auto (Bl d)on 10-13-2021 Neutrophils/100 WBC (Bld) 81.8 % [facility] Nitrite Test strip Ql (U)on 10-13-2021 Nitrite Ql (U) Negative Negative [facility] No Panel Informationon 10-13 Estimated GFR () 16 mL/Min [facility] Comment on above: GFR estimated refere nce range: According to KDOQI guidelines, <60 ml/min/1.73m2 is sufficient to diagnose a patient with chronic kidney disease. Microcytosis Moderate [facility] Creatinine Clearance (Chem 16.83 [facility] Platelet Estimate Decreased Normal [facility] Platelet Morphology Comment Normal Normal [facility] Schistocytes Slight [facility] Ovalocyte detectionon 2021 Ovalocytes LM Ql (Bld) Slight Fi [facility] Phencyclidine Screen Ql (U)o n 10-13-2021 Phencyclidine Ql (U) Negative Negative [facility] Platelet mean volume Auto (B ld) [Entitic vol]on 10-13-2021 Platelet mean volume (Bld) [Entitic vol] 9.0 fL 6.3-10.7 [facility] Platelet poor plasma interna tional normalized ratio (INR) by coagulation assay (relaton 10-13-2021 INR Coag (PPP) [Relative time] 2.0 {INR} [facility] Comment on above: INR Therapeutic Rang [...] 10-13-2021 Platelets (Bld) [#/Vol] 29 10*3/uL 150-450 [facility] Comment on above: Results calledat 151 0 on 10/13/21 Protein Auto test strip (U) [Mass/Vol]on 10-13-2021 Protein (U) [Mass/Vol] Negative Negative Fi [facility] Protein [Mass/volume] in Ser um or Plasmaon 10-13-2021 Protein [Mass/Vol] 6.2 g/dL 6.1-7.9 [facility] RBC Auto (Bld) [#/Vol]on RBC (Bld) [#/Vol] 5.72 10*6/uL 3.60-5.00 [facility] RBC morphologyon 10-13-2021 RBC morphology finding Nom (Bld) N/A [facility] Serum or plasma alanine hernandez otransferase measurement without P-5'-P (enzymatic activion 10-13-2021 ALT No additional P-5'-P [Catalytic activity/Vol] 12 U/L 10-60 [facility] Serum or plasma albumin/glob ulin mass ratioon 10-13-2021 Albumin/Globulin [Mass ratio] 0.9 {ratio} [facility] Serum or plasma alkaline rosanna sphatase measurement (enzymatic activity/volume)on 10-13-2021 ALP [Catalytic activity/Vol] 147 U/L 32-92 [facility] Serum or plasma aspartate am inotransferase measurement (enzymatic activity/volume)on 10-13-2021 AST [Catalytic activity/Vol] 26 U/L 10-42 [facility] Serum or plasma calcium jackie urement (mass/volume)on 10-13-2021 Calcium [Mass/Vol] 8.2 mg/dL 8.2-10.2 [facility] Serum or plasma chloride jose antonio surement (moles/volume)on 10-13-2021 Chloride [Moles/Vol] 91 mmol/L 95-114 [facility] Serum or plasma creatine kin ase MB (CKMB)/total creatine kinase (CK) ratio by calculaon 10-13-2021 CK.MB Calc [Catalytic fraction] 17.3 % 0.00-2.50 [facility] Serum or plasma creatine kin ase MB measurement (mass/volume)on 10-13-2021 CK.MB [Mass/Vol] 10.6 ng/mL 0.6-6.3 [facility] Serum or plasma glucose jackie urement (mass/volume)on 10-13-2021 Glucose [Mass/Vol] 98 mg/dL 70-100 [facility] Comment on above: ADA recommended refe rence rangeRandom Glucose Reference Range is dependent on time and content of last meal. Glucose of more than 200 mg/dL in a nonstressed, ambulatory subject supports the diagnosis of Diabetes Mellitus. Serum or plasma potassium me asurement (moles/volume)on 10-13-2021 Potassium [Moles/Vol] 3.3 mmol/L 3.5-5.1 [facility] Serum or plasma sodium measu rement (moles/volume)on 10-13-2021 Sodium [Moles/Vol] 130 mmol/L 136-146 [facility] Serum or plasma total biliru bin measurement (mass/volume)on 10-13-2021 Bilirubin [Mass/Vol] 0.6 mg/dL 0.3-1.2 [facility] Serum or plasma total carbon dioxide measurement (moles/volume)on 10-13-2021 CO2 [Moles/Vol] 23.0 mmol/L 22.0-30.0 [facility] Serum or plasma urea nitroge n measurement (mass/volume)on 10-13-2021 Urea nitrogen [Mass/Vol] 51 mg/dL 9-23 [facility] Specific gravity Auto test s trip (U) [Rel density]on 10-13-2021 Specific gravity (U) [Rel density] 1.007 1.001-1.03 0 [facility] Squamous epithelial cells de tection in urine sediment by light microscopyon 10-13-2021 Epithelial cells.squamous LM Ql (Urine sed) 10-19 [HPF] [facility] Teardrop cell detectionon Dacrocytes LM Ql (Bld) Slight [facility] Trichomonas vaginalis detect ion in urine sediment by light microscopyon 10-13-2021 T. vaginalis LM Ql (Urine sed) 3-4 [HPF] None Seen [facility] Troponin I.cardiac [Mass/vol ume] in Serum or Plasma by High sensitivity methodon 10-13-2021 Troponin I.cardiac High sensitivity method [Mass/Vol] 139 pg/mL 0-15 [facility] Comment on above: Critical valueresult calledat 1909 on 10/13/21 Urine bacteria detection by automated methodon 10-13-2021 Bacteria Auto Ql (U) None seen None Seen [facility] Urine clarity by refractomet ry automatedon 10-13-2021 Clarity Refractometry automated (U) Cloudy Clear [facility] Urine cocaine detectionon Cocaine Ql (U) Negative Negative [facility] Urine glucose measurement by automated test strip (mass/volume)on 10-13-2021 Glucose Auto test strip (U) [Mass/Vol] Normal mg/dL Normal [facility] Urine hemoglobin detection b y automated test stripon 10-13-2021 Hemoglobin Auto test strip Ql (U) Trace Negative [facility] Urine lactic acid measuremen ton 10-13-2021 Lactate (U) [Moles/Vol] 1.5 mmol/L [facility] Urine leukocyte esterase det ection by automated test stripon 10-13-2021 Leukocyte esterase Auto test strip Ql (U) 3+ Negative [facility] Urobilinogen Auto test strip (U) [Mass/Vol]on 10-13-2021 Urobilinogen (U) [Mass/Vol] Normal mg/dL Normal [facility] pH Auto test strip (U)on pH (U) 5.5 [pH] 5.0-9.0 [facility] Prothrombin Time INRon 09-04 Prothrombin Time INR 1.0 [facility] [employer] Other Prothrombin Time INRon 07-17 INR Coag (PPP) [Relative time] 2.0 {INR} [employer] Other Prothrombin Time INR [facility] [employer] Other Prothrombin Time INRon 06-30 INR Coag (PPP) [Relative time] 4.4 {INR} [employer] Other Prothrombin Time INR [facility] [employer] Other Prothrombin Time INRon 06-09 INR Coag (PPP) [Relative time] 4.9 {INR} [employer] Other Prothrombin Time INR [facility] [employer] Other Laboratory - Coagulationon 0 12-23-2020 PT Coag (PPP) [Time] 314.1 s 9.0-12.9 [facility] Comment on above: Results calledat 111 7 on 12/23/20 Platelet poor plasma interna tional normalized ratio (INR) by coagulation assay (relaton 12-23-2020 INR Coag (PPP) [Relative time] 27.1 {INR} [facility] Comment on above: Results calledat 111 [...] 11-25-2020 Basophils (Bld) [#/Vol] 0.1 10*3/uL 0.0-0.2 [facility] Basophils/100 WBC Auto (Bld) on 11-25-2020 Basophils/100 WBC (Bld) 1.7 % [facility] Blood anisocytosis detection on 11-25-2020 Anisocytosis Ql (Bld) Marked [facility] Blood hemoglobin measurement (mass/volume)on 11-25-2020 Hemoglobin (Bld) [Mass/Vol] 8.3 g/dL 11.8-15.4 [facility] Blood leukocytes automated c ount (number/volume)on 11-25-2020 WBC (Bld) [#/Vol] 8.5 10*3/uL 4.5-11.0 [facility] Blood polychromasia detectio n by light microscopyon 11-25-2020 Polychromasia LM Ql (Bld) Moderate [facility] Creatinine and Glomerular fi ltration rate.predicted panel (S/P/Bld)on 11-25-2020 Creatinine [Mass/Vol] 0.79 mg/dL 0.44-1.03 [facility] Eosinophils Auto (Bld) [#/Vo l]on 11-25-2020 Eosinophils (Bld) [#/Vol] 0.3 10*3/uL 0.0-0.45 [facility] Eosinophils/100 WBC Auto (Bl d)on 11-25-2020 Eosinophils/100 WBC (Bld) 3.3 % [facility] Erythrocyte distribution wid th Auto (RBC) [Ratio]on 11-25-2020 Erythrocyte distribution width (RBC) [Ratio] 21.0 % 11.9-15.3 [facility] GFR/1.73 sq M.predicted emily g non-blacks MDRD (S/P/Bld) [Vol rate/Area]on 11-25-2020 GFR/1.73 sq M predicted among non-blacks MDRD (S/P/Bld) [Vol rate/Area] > 60 mL/Min [facility] HCG ( test) IA.rapi d Ql (U)on 11-25-2020 HCG ( test) Ql (U) Negative [facility] Hematocrit Auto (Bld) [Volum e fraction]on 11-25-2020 Hematocrit (Bld) [Volume fraction] 26.3 % 34.0-46.4 [facility] Hematologyon 11-25-2020 PT Coag (PPP) [Time] 13.6 s 9.0-12.9 [facility] Platelets (Bld) [#/Vol] Normal Normal [facility] Hypochromia detectionon 10-29 Hypochromia Ql (Bld) Moderate [facility] Lymphocytes Auto (Bld) [#/Vo l]on 11-25-2020 Lymphocytes (Bld) [#/Vol] 1.9 10*3/uL 1.00-4.8 [facility] Lymphocytes/100 WBC Auto (Bl d)on 11-25-2020 Lymphocytes/100 WBC (Bld) 22.6 % [facility] MCH Auto (RBC) [Entitic mass ]on 11-25-2020 MCH (RBC) [Entitic mass] 21.5 pg 24.7-34.3 [facility] MCHC Auto (RBC) [Mass/Vol]on 11-25-2020 MCHC (RBC) [Mass/Vol] 31.5 g/dL 32.0-35.0 [facility] MCV Auto (RBC) [Entitic vol] on 11-25-2020 MCV (RBC) [Entitic vol] 68.2 fL 80-100 [facility] Monocytes Auto (Bld) [#/Vol] on 11-25-2020 Monocytes (Bld) [#/Vol] 0.8 10*3/uL 0.0-0.8 [facility] Monocytes/100 WBC Auto (Bld) on 11-25-2020 Monocytes/100 WBC (Bld) 8.8 % [facility] Neutrophils Auto (Bld) [#/Vo l]on 11-25-2020 Neutrophils (Bld) [#/Vol] 5.4 10*3/uL 1.8-7.7 [facility] Neutrophils/100 WBC Auto (Bl d)on 11-25-2020 Neutrophils/100 WBC (Bld) 63.6 % [facility] No Panel Informationon 11-25 Estimated GFR () > 60 mL/Min [facility] Comment on above: GFR estimated refere nce range: According to KDOQI guidelines, <60 ml/min/1.73m2 is sufficient to diagnose a patient with chronic kidney disease. Platelet Estimate Normal Normal [facility] Otheron 11-25-2020 GFR/1.73 sq M.predicted MDRD (S/P/Bld) [Vol rate/Area] > 60 mL/Min [facility] Comment on above: GFR estimated refere nce range: According to KDOQI guidelines, <60 ml/min/1.73m2 is sufficient to diagnose a patient with chronic kidney disease. Microcytosis Moderate [facility] Nucleated RBC/100 WBC (Bld) [Ratio] 0.2 % 0-0.5 [facility] Creatinine Clearance (Chem 84.61 [facility] Platelet Morphology Comment Normal Normal [facility] Poikilocytosis Slight [facility] Schistocytes Slight [facility] Ovalocyte detectionon 2020 Ovalocytes LM Ql (Bld) Slight [facility] Platelet mean volume Auto (B ld) [Entitic vol]on 11-25-2020 Platelet mean volume (Bld) [Entitic vol] 8.8 fL 6.3-10.7 [facility] Platelet poor plasma interna tional normalized ratio (INR) by coagulation assay (relaton 11-25-2020 INR Coag (PPP) [Relative time] 1.2 {INR} [facility] Comment on above: INR Therapeutic Rang [...] 11-25-2020 Platelets (Bld) [#/Vol] 318 10*3/uL 150-450 [facility] RBC Auto (Bld) [#/Vol]on RBC (Bld) [#/Vol] 3.85 10*6/uL 3.60-5.00 [facility] RBC morphologyon 11-25-2020 RBC morphology finding Nom (Bld) N/A [facility] Serum or plasma calcium jackie urement (mass/volume)on 11-25-2020 Calcium [Mass/Vol] 8.6 mg/dL 8.2-10.2 [facility] Serum or plasma chloride jose antonio surement (moles/volume)on 11-25-2020 Chloride [Moles/Vol] 102 mmol/L 95-114 [facility] Serum or plasma glucose jackie urement (mass/volume)on 11-25-2020 Glucose [Mass/Vol] 87 mg/dL 70-100 [facility] Comment on above: ADA recommended refe rence rangeRandom Glucose Reference Range is dependent on time and content of last meal. Glucose of more than 200 mg/dL in a nonstressed, ambulatory subject supports the diagnosis of Diabetes Mellitus. Serum or plasma potassium me asurement (moles/volume)on 11-25-2020 Potassium [Moles/Vol] 3.9 mmol/L 3.5-5.1 [facility] Serum or plasma sodium measu rement (moles/volume)on 11-25-2020 Sodium [Moles/Vol] 135 mmol/L 136-146 [facility] Serum or plasma total carbon dioxide measurement (moles/volume)on 11-25-2020 CO2 [Moles/Vol] 22.7 mmol/L 22.0-30.0 [facility] Serum or plasma urea nitroge n measurement (mass/volume)on 11-25-2020 Urea nitrogen [Mass/Vol] 8 mg/dL 9-23 [facility] Target cellson 11-25-2020 Target cells LM Ql (Bld) Slight [facility] Urine human chorionic gonado tropin (hCG) detection by immunoassayon 11-25-2020 HCG ( test) Ql (U) Negative [facility] Creatine kinase [Enzymatic a ctivity/volume] in Serum or Plasmaon 11-24-2020 CK [Catalytic activity/Vol] 54 U/L 22269 [facility] Otheron 11-24-2020 CBC Comment See comment [facility] Comment on above: There is significant microcytosis which suggests the possibility of iron deficiency. Consider serum ferritin and iron studies. Serum or plasma cardiac trop onin I measurement (mass/volume)on 11-24-2020 Troponin I.cardiac [Mass/Vol] ng/mL 0-0.02 [facility] Comment on above: ELLA UT Cut off value > or equal to 0.03 ng/mL in conjunction with clinical conditions of myocardial infarction.([email or web address]) Troponin I.cardiac [Mass/Vol] ng/mL 0-0.02 [facility] Comment on above: ELLA UT Cut off value > or equal to 0.03 ng/mL in conjunction with clinical conditions of myocardial infarction.([email or web address]) Serum or plasma creatine kin ase MB (CKMB)/total creatine kinase (CK) ratio by calculaon 11-24-2020 CK.MB Calc [Catalytic fraction] 3.8 % 0.00-2.50 [facility] Serum or plasma creatine kin ase MB measurement (mass/volume)on 11-24-2020 CK.MB [Mass/Vol] 2.1 ng/mL 0.6-6.3 [facility] Teardrop cell detectionon Dacrocytes LM Ql (Bld) Rare Fi [facility] Activated partial thrombopla stin time (aPTT) in platelet poor plasma by coagulation aon 11-23-2020 aPTT Coag (PPP) [Time] 92.8 s 25.1-36.5 Fi [facility] Comment on above: Critical valueresult calledat 1511 on 11/23/20 Automated basophil %on 11-23 Basophils/100 WBC (Bld) 1.1 % [facility] Automated basophil counton 0 11-23-2020 Basophils (Bld) [#/Vol] 0.2 10*3/uL 0.0-0.2 [facility] Automated blood lymphocyte c ount (number/volume)on 11-23-2020 Lymphocytes (Bld) [#/Vol] 1.5 10*3/uL 1.00-4.8 [facility] Automated blood lymphocyte c ount as percentage of total leukocyteson 11-23-2020 Lymphocytes/100 WBC (Bld) 10.4 % [facility] Automated blood monocyte cou nton 11-23-2020 Monocytes (Bld) [#/Vol] 1.5 10*3/uL 0.0-0.8 [facility] Automated blood platelet cou nt (count/volume)on 11-23-2020 Platelets (Bld) [#/Vol] 327 10*3/uL 150-450 [facility] Automated blood platelet jose antonio n volume measurementon 11-23-2020 Platelet mean volume (Bld) [Entitic vol] 8.1 fL 6.3-10.7 [facility] Automated eosinophil %on Eosinophils/100 WBC (Bld) 1.5 % [facility] Automated eosinophil counton 11-23-2020 Eosinophils (Bld) [#/Vol] 0.2 10*3/uL 0.0-0.45 [facility] Automated erythrocyte distri bution width ratioon 11-23-2020 Erythrocyte distribution width (RBC) [Ratio] 21.1 % 11.9-15.3 [facility] Automated erythrocyte mean c orpuscular hemoglobin (mass per erythrocyte)on 11-23-2020 MCH (RBC) [Entitic mass] 21.2 pg 24.7-34.3 [facility] Automated erythrocyte mean c orpuscular hemoglobin concentration measurement (mass/volon 11-23-2020 MCHC (RBC) [Mass/Vol] 31.0 g/dL 32.0-35.0 [facility] Automated erythrocyte mean c orpuscular volumeon 11-23-2020 MCV (RBC) [Entitic vol] 68.4 fL 80-100 [facility] Automated erythrocytes count in urine sediment (number/area)on 11-23-2020 RBC Auto (Urine sed) [#/Area] 20-49 [HPF] [facility] Automated leukocytes count i n urine sediment (number/area)on 11-23-2020 WBC Auto (Urine sed) [#/Area] 50-100 [HPF] [facility] Automated monocyte %on 11-23 Monocytes/100 WBC (Bld) 9.8 % [facility] Automated neutrophil %on Neutrophils/100 WBC (Bld) 77.2 % [facility] Bilirubin Test strip Ql (U)o n 11-23-2020 Bilirubin Ql (U) Negative Negative [facility] Blood anisocytosis detection on 11-23-2020 Anisocytosis Ql (Bld) Moderate [facility] Blood erythrocytes automated count (number/volume)on 11-23-2020 RBC (Bld) [#/Vol] 3.91 10*6/uL 3.60-5.00 [facility] Blood hemoglobin measurement (mass/volume)on 11-23-2020 Hemoglobin (Bld) [Mass/Vol] 8.3 g/dL 11.8-15.4 [facility] Blood leukocytes automated c ount (number/volume)on 11-23-2020 WBC (Bld) [#/Vol] 14.9 10*3/uL 4.5-11.0 [facility] Blood neutrophil count by au tomated method (number/volume)on 11-23-2020 Neutrophils (Bld) [#/Vol] 11.5 10*3/uL 1.8-7.7 [facility] Blood polychromasia detectio n by light microscopyon 11-23-2020 Polychromasia LM Ql (Bld) Slight [facility] COVID-19 Positive/Negativeon 11-23-2020 COVID-19 Positive/Negative Negative Negative [facility] Comment on above: Reference: NegativeT esting for SARS-CoV-2 by RT-PCRThis test was developed and its performance characteristics determined by [employer] ([employer]) and validated at the [facility]. This test has not been [...] N gene ADITI+probe Ql (Resp) Negative Negative [facility] Comment on above: Reference: NegativeT esting for SARS-CoV-2 by RT-PCRThis test was developed and its performance characteristics determined by [employer] ([employer]) and validated at the [facility]. This test has not been [...] COVID-19 SOFIAon 11-23-2020 COVID-19 MARANDA Negative Negative [facility] Comment on above: This is a duplicate Maranda SARS Antigen (CAIT) result to be used for statistical tracking purpose only. SARS-CoV+SARS-CoV-2 (COVID-19) Ag IA.rapid Ql (Resp) Negative Negative [facility] Comment on above: This is a duplicate Maranda SARS Antigen (CAIT) result to be used for statistical tracking purpose only. CT biopsyon 11-23-2020 Transferrin [Mass/Vol] 321 mg/dL 180-380 [facility] 11-23-2020 Natriuretic peptide B (Bld) [Mass/Vol] 859.0 pg/mL 5-100 [facility] Color Auto (U)on 11-23-2020 Color (U) Yellow Yellow [facility] Creatine kinase [Enzymatic a ctivity/volume] in Serum or Plasmaon 11-23-2020 CK [Catalytic activity/Vol] 66 U/L 22-269 [facility] Estimated glomerular filtrat ion rate (GFR) non- Americanon 11-23-2020 GFR/1.73 sq M predicted among non-blacks MDRD (S/P/Bld) [Vol rate/Area] > 60 mL/Min [facility] Ferritin [Mass/volume] in Se rum or Plasmaon 11-23-2020 Ferritin [Mass/Vol] 39.9 ng/mL 11-306.8 [facility] Folate [Mass/volume] in Seru m or Plasmaon 11-23-2020 Folate [Mass/Vol] ng/mL >5.9 [facility] Comment on above: Folate reference ran ge: >5.9 ng/mlThe WHO technical consultation on folate and vitamin [id number] has determined that folate concentrations lessthan 4 ng/ml are considered deficient. Folate [Mass/Vol] ng/mL >5.9 [facility] Comment on above: Folate reference ran ge: >5.9 ng/mlThe WHO technical consultation on folate and vitamin [id number] has determined that folate concentrations lessthan 4 ng/ml are considered deficient. Hematocrit [Volume Fraction] of Blood by Automated counton 11-23-2020 Hematocrit (Bld) [Volume fraction] 26.7 % 34.0-46.4 [facility] Hematologyon 11-23-2020 Platelets (Bld) [#/Vol] Normal Normal [facility] PT Coag (PPP) [Time] 189.6 s 9.0-12.9 [facility] Hypochromia detectionon 10-29 Hypochromia Ql (Bld) Moderate [facility] Iron [Mass/volume] in Serum or Plasmaon 11-23-2020 Iron [Mass/Vol] 19 ug/dL 40-150 [facility] Iron binding capacity [Mass/ volume] in Serum or Plasmaon 11-23-2020 Iron binding capacity [Mass/Vol] 449 ug/dL 255-450 [facility] Iron saturation [Mass Fracti on] in Serum or Plasmaon 11-23-2020 Iron saturation [Mass fraction] 4.0 % 20-50 [facility] Ketones Auto test strip (U) [Mass/Vol]on 11-23-2020 Ketones (U) [Mass/Vol] Negative Negative [facility]biology an d Antimicrobial susceptibilityon 11-23-2020 SARS-CoV-2 (COVID-19) RNA ADITI+probe Ql (Unsp spec) N/A [facility] Metabolic Panelon 11-23-2020 Magnesium [Mass/Vol] 1.8 mg/dL 1.6-2.6 [facility] Nitrite Test strip Ql (U)on 11-23-2020 Nitrite Ql (U) Positive Negative [facility] Otheron 11-23-2020 Absolute Reticulocyte Count 0.104 10*6/uL 0.024-0.08 4 [facility] Cobalamin (Vitamin B12) [Mass/Vol] 275 pg/mL 180-914 [facility] Percent Reticulocyte Count 2.6 % 0.5-1.5 [facility] Coronavirus 2019 PCR Interp N/A [facility] SARS Antigen (LFIA) [facility] Crenated Cell Slight [facility] GFR/1.73 sq M.predicted MDRD (S/P/Bld) [Vol rate/Area] > 60 mL/Min [facility] Comment on above: GFR estimated refere nce range: According to KDOQI guidelines, <60 ml/min/1.73m2 is sufficient to diagnose a patient with chronic kidney disease. Microcytosis Moderate [facility] Nucleated RBC/100 WBC (Bld) [Ratio] 0.1 % 0-0.5 [facility] Creatinine Clearance (Chem 74.80 [facility] Platelet Morphology Comment Normal Normal [facility] Poikilocytosis Slight [facility] Schistocytes Rare [facility] Ovalocyte detectionon 2020 Ovalocytes LM Ql (Bld) Slight Fi [facility] Platelet poor plasma interna tional normalized ratio (INR) by coagulation assay (relaton 11-23-2020 INR Coag (PPP) [Relative time] 16.6 {INR} [facility] Comment on above: Critical valueresult calledat [...] 11-23-2020 Protein (U) [Mass/Vol] Negative Negative Fi [facility] RBC morphologyon 11-23-2020 RBC morphology finding Nom (Bld) N/A [facility] Serum or plasma calcium jackie urement (mass/volume)on 11-23-2020 Calcium [Mass/Vol] 8.4 mg/dL 8.2-10.2 [facility] Serum or plasma cardiac trop onin I measurement (mass/volume)on 11-23-2020 Troponin I.cardiac [Mass/Vol] ng/mL 0-0.02 [facility] Comment on above: ELLA [place] Cut off value > or equal to 0.03 ng/mL in conjunction with clinical conditions of myocardial infarction.([email or web address]) Serum or plasma chloride jose antonio surement (moles/volume)on 11-23-2020 Chloride [Moles/Vol] 104 mmol/L 95-114 [facility] Serum or plasma creatine kin ase MB (CKMB)/total creatine kinase (CK) ratio by calculaon 11-23-2020 CK.MB Calc [Catalytic fraction] 2.8 % 0.00-2.50 [facility] Serum or plasma creatine kin ase MB measurement (mass/volume)on 11-23-2020 CK.MB [Mass/Vol] 1.9 ng/mL 0.6-6.3 [facility] Serum or plasma creatinine m easurement with calculation of estimated glomerular filtron 11-23-2020 Creatinine [Mass/Vol] 0.83 mg/dL 0.44-1.03 [facility] Serum or plasma glucose jackie urement (mass/volume)on 11-23-2020 Glucose [Mass/Vol] 126 mg/dL 70-100 [facility] Comment on above: ADA recommended refe rence rangeRandom Glucose Reference Range is dependent on time and content of last meal. Glucose of more than 200 mg/dL in a nonstressed, ambulatory subject supports the diagnosis of Diabetes Mellitus. Serum or plasma potassium me asurement (moles/volume)on 11-23-2020 Potassium [Moles/Vol] 3.8 mmol/L 3.5-5.1 [facility] Serum or plasma sodium measu rement (moles/volume)on 11-23-2020 Sodium [Moles/Vol] 135 mmol/L 136-146 [facility] Serum or plasma total carbon dioxide measurement (moles/volume)on 11-23-2020 CO2 [Moles/Vol] 22.0 mmol/L 22.0-30.0 [facility] Serum or plasma urea nitroge n measurement (mass/volume)on 11-23-2020 Urea nitrogen [Mass/Vol] 9 mg/dL 9-23 [facility] Specific gravity Auto test s trip (U) [Rel density]on 11-23-2020 Specific gravity (U) [Rel density] 1.007 1.001-1.03 0 [facility] Squamous epithelial cells de tection in urine sediment by light microscopyon 11-23-2020 Epithelial cells.squamous LM Ql (Urine sed) 3-4 [HPF] [facility] Target cellson 11-23-2020 Target cells LM Ql (Bld) Slight [facility] Teardrop cell detectionon Dacrocytes LM Ql (Bld) Rare [facility] Urinalysis[facility] 11-23-2020 Hyaline casts LM Ql (Urine sed) 0-8 [LPF] [facility] Urine bacteria detection by automated methodon 11-23-2020 Bacteria Auto Ql (U) 4+ None Seen [facility] Urine clarity by refractomet ry automatedon 03-27-2021 Clarity Refractometry automated (U) Clear Clear [facility] Urine culture routineon 10-29 Bacteria identified Cx Nom (U) Escherichia coli [facility] Urine glucose measurement by automated test strip (mass/volume)on 11-23-2020 Glucose Auto test strip (U) [Mass/Vol] Normal mg/dL Normal [facility] Urine hemoglobin detection b y automated test stripon 11-23-2020 Hemoglobin Auto test strip Ql (U) 3+ Negative [facility] Urine ketones measurement by automated test strip (mass/volume)on 11-23-2020 Ketones (U) [Mass/Vol] Negative Negative [facility] Urine leukocyte esterase det ection by automated test stripon 11-23-2020 Leukocyte esterase Auto test strip Ql (U) 4+ Negative [facility] Urine nitrite detection by t est stripon 11-23-2020 Nitrite Ql (U) Positive Negative [facility] Urine protein measurement by automated test strip (mass/volume)on 11-23-2020 Protein (U) [Mass/Vol] Negative Negative [facility] Urine total bilirubin detect ion by test stripon 11-23-2020 Bilirubin Ql (U) Negative Negative [facility] Urobilinogen Auto test strip (U) [Mass/Vol]on 11-23-2020 Urobilinogen (U) [Mass/Vol] Normal mg/dL Normal [facility] pH Auto test strip (U)on pH (U) 6.5 [pH] 5.0-9.0 [facility] Activated partial thrombopla stin time (aPTT) in platelet poor plasma by coagulation aon 08-16-2020 aPTT Coag (PPP) [Time] 55.8 s 23.0-35.0 [facility] Automated basophil %on 08-16 Basophils/100 WBC (Bld) 0.9 % [facility] Automated basophil counton 1 10-17-2019 Basophils (Bld) [#/Vol] 0.1 10*3/uL 0.0-0.2 [facility] Automated blood lymphocyte c ount (number/volume)on 08-16-2020 Lymphocytes (Bld) [#/Vol] 1.6 10*3/uL 1.00-4.8 [facility] Automated blood lymphocyte c ount as percentage of total leukocyteson 08-16-2020 Lymphocytes/100 WBC (Bld) 17.3 % [facility] Automated blood monocyte cou nton 08-16-2020 Monocytes (Bld) [#/Vol] 0.7 10*3/uL 0.0-0.8 [facility] Automated blood platelet cou nt (count/volume)on 08-16-2020 Platelets (Bld) [#/Vol] 305 10*3/uL 150-450 [facility] Automated blood platelet jose antonio n volume measurementon 08-16-2020 Platelet mean volume (Bld) [Entitic vol] 9.1 fL 6.3-10.7 [facility] Automated eosinophil %on Eosinophils/100 WBC (Bld) 1.6 % [facility] Automated eosinophil counton 08-16-2020 Eosinophils (Bld) [#/Vol] 0.1 10*3/uL 0.0-0.45 [facility] Automated erythrocyte distri bution width ratioon 08-16-2020 Erythrocyte distribution width (RBC) [Ratio] 18.8 % 11.9-15.3 [facility] Automated erythrocyte mean c orpuscular hemoglobin (mass per erythrocyte)on 08-16-2020 MCH (RBC) [Entitic mass] 23.9 pg 24.7-34.3 [facility] Automated erythrocyte mean c orpuscular hemoglobin concentration measurement (mass/volon 08-16-2020 MCHC (RBC) [Mass/Vol] 31.1 g/dL 32.0-35.0 [facility] Automated erythrocyte mean c orpuscular volumeon 08-16-2020 MCV (RBC) [Entitic vol] 76.9 fL 80-100 [facility] Automated erythrocytes count in urine sediment (number/area)on 08-16-2020 RBC Auto (Urine sed) [#/Area] 10-19 [HPF] [facility] Automated leukocytes count i n urine sediment (number/area)on 08-16-2020 WBC Auto (Urine sed) [#/Area] Innumerable [HPF] [facility] Automated monocyte %on 08-16 Monocytes/100 WBC (Bld) 7.6 % [facility] Automated neutrophil %on Neutrophils/100 WBC (Bld) 72.6 % [facility] Automated urine color determ inationon 08-16-2020 Color (U) Yellow Yellow [facility] Automated urine hyaline cast s count (number/volume)on 08-16-2020 Hyaline casts Auto (U) [#/Vol] None seen [LPF] [facility] Blood erythrocytes automated count (number/volume)on 08-16-2020 RBC (Bld) [#/Vol] 4.45 10*6/uL 3.60-5.00 [facility] Blood hemoglobin measurement (mass/volume)on 08-16-2020 Hemoglobin (Bld) [Mass/Vol] 10.7 g/dL 11.8-15.4 [facility] Blood leukocytes automated c ount (number/volume)on 08-16-2020 WBC (Bld) [#/Vol] 9.1 10*3/uL 3.8-11.6 [facility] Blood neutrophil count by au tomated method (number/volume)on 08-16-2020 Neutrophils (Bld) [#/Vol] 6.6 10*3/uL 1.8-7.7 [facility] COVID-19 Detected/Not Detect edon 08-16-2020 COVID-19 Detected/Not Detected Not detected Not Detecte [facility] Comment on above: This is a duplicate test result based off of the RP2.1 COVID (EUA) test performed within the Microbiology department. [facility] 08-16-2020 Natriuretic peptide B (Bld) [Mass/Vol] 1123.0 pg/mL 5-100 [facility] Casts typing in urine sedime nt by light microscopyon 08-16-2020 Casts LM Nom (Urine sed) None seen [LPF] None Seen [facility] Creatine kinase [Enzymatic a ctivity/volume] in Serum or Plasmaon 08-16-2020 CK [Catalytic activity/Vol] 72 U/L 22-269 [facility] Estimated glomerular filtrat ion rate (GFR) non- Americanon 08-16-2020 GFR/1.73 sq M predicted among non-blacks MDRD (S/P/Bld) [Vol rate/Area] 56 mL/min/{1.73_m2} [facility] Hematocrit [Volume Fraction] of Blood by Automated counton 08-16-2020 Hematocrit (Bld) [Volume fraction] 34.2 % 34.0-46.4 [facility] Hematologyon 08-16-2020 PT Coag (PPP) [Time] 144.3 s 9.0-12.9 [facility] PT Coag (PPP) [Time] 132.6 s 9.0-12.9 [facility] Lactate dehydrogenase measur ement (enzymatic activity/volume)on 08-16-2020 LDH (Unsp spec) [Catalytic activity/Vol] 268 U/L 45-190 [facility] Metabolic Panelon 08-16-2020 Magnesium [Mass/Vol] 1.8 mg/dL 1.6-2.6 [facility] Otheron 08-16-2020 Respiratory Panel (PCR) [facility] D-Dimer Quantitative (PE/DVT) < 200 ng/mL 0-243 [facility] Comment on above: The reference range [...] sq M.predicted MDRD (S/P/Bld) [Vol rate/Area] mL/min/{1.73_m2} [facility] Comment on above: GFR estimated refere nce range: According to KDOQI guidelines, <60 ml/min/1.73m2 is sufficient to diagnose a patient with chronic kidney disease. Nucleated RBC/100 WBC (Bld) [Ratio] 0.1 % 0-0.5 [facility] Creatinine Clearance (Chem 61.68 [facility] Platelet poor plasma interna tional normalized ratio (INR) [facility] INR Coag (PPP) [Relative time] 12.6 {INR} [facility] Comment on above: Results calledat 000 [...] INR Coag (PPP) [Relative time] 11.6 {INR} [facility] Comment on above: Critical valueresult calledat [...] (mass/volume)on 08-16-2020 Calcium [Mass/Vol] 8.4 mg/dL 8.2-10.2 [facility] Serum or plasma cardiac trop onin I measurement (mass/volume)on 08-16-2020 Troponin I.cardiac [Mass/Vol] ng/mL 0-0.02 [facility] Comment on above: ELLA [place] Cut off value > or equal to 0.03 ng/mL in conjunction with clinical conditions of myocardial infarction.([email or web address]) Serum or plasma chloride jose antonio surement (moles/volume)on 08-16-2020 Chloride [Moles/Vol] 103 mmol/L 95-114 [facility] Serum or plasma creatine kin ase MB (CKMB)/total creatine kinase (CK) ratio by calculaon 08-16-2020 CK.MB Calc [Catalytic fraction] 3.7 0.00-2.50 [facility] Serum or plasma creatine kin ase MB measurement (mass/volume)on 08-16-2020 CK.MB [Mass/Vol] 2.7 ng/mL 0.6-6.3 [facility] Serum or plasma creatinine m easurement with calculation of estimated glomerular filtron 08-16-2020 Creatinine [Mass/Vol] 1.03 mg/dL 0.44-1.03 [facility] Serum or plasma glucose jackie urement (mass/volume)on 08-16-2020 Glucose [Mass/Vol] 120 mg/dL 70-100 [facility] Comment on above: ADA recommended refe rence rangeRandom Glucose Reference Range is dependent on time and content of last meal. Glucose of more than 200 mg/dL in a nonstressed, ambulatory subject supports the diagnosis of Diabetes Mellitus. Serum or plasma potassium me asurement (moles/volume)on 08-16-2020 Potassium [Moles/Vol] 4.3 mmol/L 3.5-5.1 [facility] Serum or plasma sodium measu rement (moles/volume)on 08-16-2020 Sodium [Moles/Vol] 140 mmol/L 136-146 [facility] Serum or plasma total carbon dioxide measurement (moles/volume)on 08-16-2020 CO2 [Moles/Vol] 25.2 mmol/L 22.0-30.0 [facility] Serum or plasma urea nitroge n measurement (mass/volume)on 08-16-2020 Urea nitrogen [Mass/Vol] 9 mg/dL - [facility] Specific gravity of Urine by Automated test stripon 08-16-2020 Specific gravity (U) [Rel density] 1.014 1.001-1.03 0 [facility] Squamous epithelial cells de tection in urine sediment by light microscopyon 08-16-2020 Epithelial cells.squamous LM Ql (Urine sed) 5-9 [HPF] [facility] Trichomonas vaginalis detect ion in urine sediment by light microscopyon 08-16-2020 T. vaginalis LM Ql (Urine sed) 3-4 [HPF] None Seen [facility] Urine bacteria detection by automated methodon 08-16-2020 Bacteria Auto Ql (U) None seen None Seen [facility] Urine clarity by refractomet ry automatedon 08-16-2020 Clarity Refractometry automated (U) Cloudy Clear [facility] Urine glucose measurement by automated test strip (mass/volume)on 08-16-2020 Glucose Auto test strip (U) [Mass/Vol] Normal mg/dL Normal [facility] Urine hemoglobin detection b y automated test stripon 08-16-2020 Hemoglobin Auto test strip Ql (U) 1+ Negative [facility] Urine ketones measurement by automated test strip (mass/volume)on 08-16-2020 Ketones (U) [Mass/Vol] Negative Negative [facility] Urine leukocyte esterase det ection by automated test stripon 08-16-2020 Leukocyte esterase Auto test strip Ql (U) 4+ Negative [facility] Urine nitrite detection by t est stripon 08-16-2020 Nitrite Ql (U) Negative Negative [facility] Urine pH measurement by auto mated test stripon 08-16-2020 pH (U) 6.5 [pH] 5.0-9.0 [facility] [facility] protein measurement by automated test strip (mass/volume)on 08-16-2020 Protein (U) [Mass/Vol] Trace mg/dL Negative [facility] Urine total bilirubin detect ion by test stripon 08-16-2020 Bilirubin Ql (U) Negative Negative [facility] Urine urobilinogen measureme nt by automated test strip (mass/volume)on 08-16-2020 Urobilinogen (U) [Mass/Vol] Normal mg/dL Normal [facility] Activated partial thrombopla stin time (aPTT) in platelet poor plasma by coagulation aon 07-26-2020 aPTT Coag (PPP) [Time] 32.4 s 23.0-35.0 [facility] Automated basophil %on 07-26 Basophils/100 WBC (Bld) 1.5 % [facility] Automated basophil counton 1 09-25-2019 Basophils (Bld) [#/Vol] 0.1 10*3/uL 0.0-0.2 [facility] Automated blood lymphocyte c ount (number/volume)on 07-26-2020 Lymphocytes (Bld) [#/Vol] 1.9 10*3/uL 1.00-4.8 [facility] Automated blood lymphocyte c ount as percentage of total leukocyteson 07-26-2020 Lymphocytes/100 WBC (Bld) 24.7 % [facility] Automated blood monocyte cou nton 07-26-2020 Monocytes (Bld) [#/Vol] 0.8 10*3/uL 0.0-0.8 [facility] Automated blood platelet cou nt (count/volume)on 07-26-2020 Platelets (Bld) [#/Vol] 207 10*3/uL 150-450 [facility] Automated blood platelet jose antonio n volume measurementon 07-26-2020 Platelet mean volume (Bld) [Entitic vol] 9.5 fL 6.3-10.7 [facility] Automated eosinophil %on Eosinophils/100 WBC (Bld) 3.4 % [facility] Automated eosinophil counton 07-26-2020 Eosinophils (Bld) [#/Vol] 0.3 10*3/uL 0.0-0.45 [facility] Automated erythrocyte distri bution width ratioon 07-26-2020 Erythrocyte distribution width (RBC) [Ratio] 20.9 % 11.9-15.3 [facility] Automated erythrocyte mean c orpuscular hemoglobin (mass per erythrocyte)on 07-26-2020 MCH (RBC) [Entitic mass] 24.3 pg 24.7-34.3 [facility] Automated erythrocyte mean c orpuscular hemoglobin concentration measurement (mass/volon 07-26-2020 MCHC (RBC) [Mass/Vol] 31.3 g/dL 32.0-35.0 [facility] Automated erythrocyte mean c orpuscular volumeon 07-26-2020 MCV (RBC) [Entitic vol] 77.8 fL 80-100 [facility] Automated monocyte %on 07-26 Monocytes/100 WBC (Bld) 10.5 % [facility] Automated neutrophil %on Neutrophils/100 WBC (Bld) 59.9 % [facility] Blood anisocytosis detection on 07-26-2020 Anisocytosis Ql (Bld) Marked [facility] Blood erythrocytes automated count (number/volume)on 07-26-2020 RBC (Bld) [#/Vol] 4.84 10*6/uL 3.60-5.00 [facility] Blood hemoglobin measurement (mass/volume)on 07-26-2020 Hemoglobin (Bld) [Mass/Vol] 11.8 g/dL 11.8-15.4 [facility] Blood leukocytes automated c ount (number/volume)on 07-26-2020 WBC (Bld) [#/Vol] 7.8 10*3/uL 4.5-11.0 [facility] Blood neutrophil count by au tomated method (number/volume)on 07-26-2020 Neutrophils (Bld) [#/Vol] 4.7 10*3/uL 1.8-7.7 [facility] Body fluid albumin measureme nt (mass/volume)on 07-26-2020 Albumin (Body fld) [Mass/Vol] 3.5 g/dL 3.2-5.5 [facility] Creatine kinase [Enzymatic a ctivity/volume] in Serum or Plasmaon 07-26-2020 CK [Catalytic activity/Vol] 58 U/L 22 [facility] Estimated glomerular filtrat ion rate (GFR) non- Americanon 07-26-2020 GFR/1.73 sq M predicted among non-blacks MDRD (S/P/Bld) [Vol rate/Area] mL/min/{1.73_m2} [facility] Hematocrit [Volume Fraction] of Blood by Automated counton 07-26-2020 Hematocrit (Bld) [Volume fraction] 37.7 % 34.0-46.4 [facility] Hematologyon 07-26-2020 Platelets (Bld) [#/Vol] Normal Normal [facility] PT Coag (PPP) [Time] 16.1 s 9.0-12.9 [facility] Hypochromia detectionon 07-01 Hypochromia Ql (Bld) Slight [facility] Metabolic Panelon 07-26-2020 Magnesium [Mass/Vol] 1.7 mg/dL 1.6-2.6 [facility] Otheron 07-26-2020 GFR/1.73 sq M.predicted MDRD (S/P/Bld) [Vol rate/Area] mL/min/{1.73_m2} [facility] Comment on above: GFR estimated refere nce range: According to KDOQI guidelines, <60 ml/min/1.73m2 is sufficient to diagnose a patient with chronic kidney disease. Microcytosis Slight [facility] Nucleated RBC/100 WBC (Bld) [Ratio] 0.1 % 0-0.5 [facility] Creatinine Clearance (Chem 66.06 [facility] Platelet Morphology Comment Normal Normal [facility] Platelet poor plasma interna tional normalized ratio (INR) by coagulation assay (relaton 07-26-2020 INR Coag (PPP) [Relative time] 1.4 {INR} [facility] Comment on above: INR Therapeutic Rang [...] Plasmaon 07-26-2020 Protein [Mass/Vol] 6.4 g/dL 6.1-7.9 [facility] RBC morphologyon 07-26-2020 RBC morphology finding Nom (Bld) N/A [facility] Serum globulin measurement b y calculation (mass/volume)on 07-26-2020 Globulin (S) [Mass/Vol] 2.9 g/dL [facility] Serum or plasma alanine hernandez otransferase measurement without P-5'-P (enzymatic activion 07-26-2020 ALT No additional P-5'-P [Catalytic activity/Vol] 21 U/L 10-60 [facility] Serum or plasma albumin/glob ulin mass ratioon 07-26-2020 Albumin/Globulin [Mass ratio] 1.2 {ratio} [facility] Serum or plasma alkaline rosanna sphatase measurement (enzymatic activity/volume)on 07-26-2020 ALP [Catalytic activity/Vol] 153 U/L 32-92 [facility] Serum or plasma aspartate am inotransferase measurement (enzymatic activity/volume)on 07-26-2020 AST [Catalytic activity/Vol] 22 U/L 10-42 [facility] Serum or plasma calcium jackie urement (mass/volume)on 07-26-2020 Calcium [Mass/Vol] 8.7 mg/dL 8.2-10.2 [facility] Serum or plasma cardiac trop onin I measurement (mass/volume)on 07-26-2020 Troponin I.cardiac [Mass/Vol] ng/mL 0-0.02 [facility] Comment on above: ELLA [place] Cut off value > or equal to 0.03 ng/mL in conjunction with clinical conditions of myocardial infarction.([email or web address]) Serum or plasma chloride jose antonio surement (moles/volume)on 07-26-2020 Chloride [Moles/Vol] 106 mmol/L 95-114 [facility] Serum or plasma creatine kin ase MB (CKMB)/total creatine kinase (CK) ratio by calculaon 07-26-2020 CK.MB Calc [Catalytic fraction] 3.7 0.00-2.50 [facility] Serum or plasma creatine kin ase MB measurement (mass/volume)on 07-26-2020 CK.MB [Mass/Vol] 2.2 ng/mL 0.6-6.3 [facility] Serum or plasma creatinine m easurement with calculation of estimated glomerular filtron 07-26-2020 Creatinine [Mass/Vol] 0.96 mg/dL 0.44-1.03 [facility] Serum or plasma glucose jackie urement (mass/volume)on 07-26-2020 Glucose [Mass/Vol] 96 mg/dL 70-100 [facility] Comment on above: ADA recommended refe rence rangeRandom Glucose Reference Range is dependent on time and content of last meal. Glucose of more than 200 mg/dL in a nonstressed, ambulatory subject supports the diagnosis of Diabetes Mellitus. Serum or plasma potassium me asurement (moles/volume)on 07-26-2020 Potassium [Moles/Vol] 4.2 mmol/L 3.5-5.1 [facility] Serum or plasma sodium measu rement (moles/volume)on 07-26-2020 Sodium [Moles/Vol] 138 mmol/L 136-146 [facility] Serum or plasma total biliru bin measurement (mass/volume)on 07-26-2020 Bilirubin [Mass/Vol] 0.3 mg/dL 0.3-1.2 [facility] Serum or plasma total carbon dioxide measurement (moles/volume)on 07-26-2020 CO2 [Moles/Vol] 22.5 mmol/L 22.0-30.0 [facility] Serum or plasma urea nitroge n measurement (mass/volume)on 07-26-2020 Urea nitrogen [Mass/Vol] 14 mg/dL 05-22 [facility] Activated partial thrombopla stin time (aPTT) in platelet poor plasma by coagulation aon 07-22-2020 aPTT Coag (PPP) [Time] 36.7 s 23.0-35.0 [facility] basophil %on 07-22 Basophils/100 WBC (Bld) 1.1 % [facility] Automated basophil counton 1 09-21-2019 Basophils (Bld) [#/Vol] 0.1 10*3/uL 0.0-0.2 [facility] Automated blood lymphocyte c ount (number/volume)on 07-22-2020 Lymphocytes (Bld) [#/Vol] 1.8 10*3/uL 1.00-4.8 [facility] Automated blood lymphocyte c ount as percentage of total leukocyteson 07-22-2020 Lymphocytes/100 WBC (Bld) 18.8 % [facility] Automated blood monocyte cou nton 07-22-2020 Monocytes (Bld) [#/Vol] 0.9 10*3/uL 0.0-0.8 [facility] Automated blood platelet cou nt (count/volume)on 07-22-2020 Platelets (Bld) [#/Vol] 201 10*3/uL 150-450 [facility] Automated blood platelet jose antonio n volume measurementon 07-22-2020 Platelet mean volume (Bld) [Entitic vol] 9.4 fL 6.3-10.7 [facility] Automated eosinophil %on Eosinophils/100 WBC (Bld) 2.1 % [facility] Automated eosinophil counton 07-22-2020 Eosinophils (Bld) [#/Vol] 0.2 10*3/uL 0.0-0.45 [facility] Automated erythrocyte distri bution width ratioon 07-22-2020 Erythrocyte distribution width (RBC) [Ratio] 20.7 % 11.9-15.3 [facility] Automated erythrocyte mean c orpuscular hemoglobin (mass per erythrocyte)on 07-22-2020 MCH (RBC) [Entitic mass] 24.0 pg 24.7-34.3 [facility] Automated erythrocyte mean c orpuscular hemoglobin concentration measurement (mass/volon 07-22-2020 MCHC (RBC) [Mass/Vol] 31.1 g/dL 32.0-35.0 [facility] Automated erythrocyte mean c orpuscular volumeon 07-22-2020 MCV (RBC) [Entitic vol] 77.1 fL 80-100 [facility] Automated monocyte %on 07-22 Monocytes/100 WBC (Bld) 9.4 % [facility] Automated neutrophil %on Neutrophils/100 WBC (Bld) 68.6 % [facility] Blood erythrocytes automated count (number/volume)on 07-22-2020 RBC (Bld) [#/Vol] 4.68 10*6/uL 3.60-5.00 [facility] Blood hemoglobin measurement (mass/volume)on 07-22-2020 Hemoglobin (Bld) [Mass/Vol] 11.2 g/dL 11.8-15.4 [facility] Blood leukocytes automated c ount (number/volume)on 07-22-2020 WBC (Bld) [#/Vol] 9.5 10*3/uL 4.5-11.0 [facility] Blood neutrophil count by au tomated method (number/volume)on 07-22-2020 Neutrophils (Bld) [#/Vol] 6.5 10*3/uL 1.8-7.7 [facility] Body fluid albumin measureme nt (mass/volume)on 07-22-2020 Albumin (Body fld) [Mass/Vol] 3.5 g/dL 3.2-5.5 [facility] COVID-19 SOFIAon 07-22-2020 COVID-19 MARANDA Negative Negative [facility] Comment on above: This is a duplicate test result based off of the Maranda SARS Antigen (CAIT) test performed within the Microbiology department. [facility] 07-22-2020 Natriuretic peptide B (Bld) [Mass/Vol] 508.0 pg/mL 5-100 [facility] Estimated glomerular filtrat ion rate (GFR) non- Americanon 07-22-2020 GFR/1.73 sq M predicted among non-blacks MDRD (S/P/Bld) [Vol rate/Area] 58 mL/min/{1.73_m2} [facility] Hematocrit [Volume Fraction] of Blood by Automated counton 07-22-2020 Hematocrit (Bld) [Volume fraction] 36.1 % 34.0-46.4 [facility] Hematologyon 07-22-2020 PT Coag (PPP) [Time] 33.6 s 9.0-12.9 [facility] Metabolic Panelon 07-22-2020 Magnesium [Mass/Vol] 1.9 mg/dL 1.6-2.6 [facility] Otheron 07-22-2020 SARS Antigen (LFIA) [facility] GFR/1.73 sq M.predicted MDRD (S/P/Bld) [Vol rate/Area] mL/min/{1.73_m2} [facility] Comment on above: GFR estimated refere nce range: According to KDOQI guidelines, <60 ml/min/1.73m2 is sufficient to diagnose a patient with chronic kidney disease. Nucleated RBC/100 WBC (Bld) [Ratio] 0.0 % 0-0.5 [facility] Creatinine Clearance (Chem 64.10 [facility] Platelet poor plasma interna tional normalized ratio (INR) by coagulation assay (relaton 07-22-2020 INR Coag (PPP) [Relative time] 3.0 {INR} [facility] Comment on above: INR Therapeutic Rang [...] Plasmaon 07-22-2020 Protein [Mass/Vol] 6.3 g/dL 6.1-7.9 [facility] Serum globulin measurement b y calculation (mass/volume)on 07-22-2020 Globulin (S) [Mass/Vol] 2.8 g/dL [facility] Serum or plasma alanine hernandez otransferase measurement without P-5'-P (enzymatic activion 07-22-2020 ALT No additional P-5'-P [Catalytic activity/Vol] 32 U/L [facility] Serum or plasma albumin/glob ulin mass ratioon 07-22-2020 Albumin/Globulin [Mass ratio] 1.3 {ratio} [facility] Serum or plasma alkaline rosanna sphatase measurement (enzymatic activity/volume)on 07-22-2020 ALP [Catalytic activity/Vol] 145 U/L [facility] Serum or plasma aspartate am inotransferase measurement (enzymatic activity/volume)on 07-22-2020 AST [Catalytic activity/Vol] 34 U/L [facility] Serum or plasma calcium jackie urement (mass/volume)on 07-22-2020 Calcium [Mass/Vol] 8.6 mg/dL 8.2-10.2 [facility] Serum or plasma cardiac trop onin I measurement (mass/volume)on 07-22-2020 Troponin I.cardiac [Mass/Vol] ng/mL 0-0.02 [facility] Comment on above: [facility] [place] Cut off value > or equal to 0.03 ng/mL in conjunction with clinical conditions of myocardial infarction.([email or web address]) Serum or plasma chloride jose antonio surement (moles/volume)on 07-22-2020 Chloride [Moles/Vol] 102 mmol/L 95-114 [facility] Serum or plasma creatinine m easurement with calculation of estimated glomerular filtron 07-22-2020 Creatinine [Mass/Vol] 1.01 mg/dL 0.44-1.03 [facility] Serum or plasma glucose jackie urement (mass/volume)on 07-22-2020 Glucose [Mass/Vol] 100 mg/dL 70-100 [facility] Comment on above: ADA recommended refe rence rangeRandom Glucose Reference Range is dependent on time and content of last meal. Glucose of more than 200 mg/dL in a nonstressed, ambulatory subject supports the diagnosis of Diabetes Mellitus. Serum or plasma potassium me asurement (moles/volume)on 07-22-2020 Potassium [Moles/Vol] 4.5 mmol/L 3.5-5.1 [facility] Serum or plasma sodium measu rement (moles/volume)on 07-22-2020 Sodium [Moles/Vol] 138 mmol/L 136-146 [facility] Serum or plasma total biliru bin measurement (mass/volume)on 07-22-2020 Bilirubin [Mass/Vol] 0.3 mg/dL 0.3-1.2 [facility] Serum or plasma total carbon dioxide measurement (moles/volume)on 07-22-2020 CO2 [Moles/Vol] 24.6 mmol/L 22.0-30.0 [facility] Serum or plasma urea nitroge n measurement (mass/volume)on 07-22-2020 Urea nitrogen [Mass/Vol] 15 mg/dL 05-22 [facility] Activated partial thrombopla stin time (aPTT) in platelet poor plasma by coagulation aon 07-19-2020 aPTT Coag (PPP) [Time] 41.0 s 23.0-35.0 Fi [facility] Albumin [Mass/volume] in Ser um or Plasmaon 07-19-2020 Albumin [Mass/Vol] 3.9 g/dL 3.2-5.5 [facility] Automated basophil %on 07-19 Basophils/100 WBC (Bld) 1.7 % [facility] Automated basophil counton 1 09-18-2019 Basophils (Bld) [#/Vol] 0.1 10*3/uL 0.0-0.2 [facility] Automated blood lymphocyte c ount (number/volume)on 07-19-2020 Lymphocytes (Bld) [#/Vol] 2.9 10*3/uL 1.00-4.8 [facility] Automated blood lymphocyte c ount as percentage of total leukocyteson 07-19-2020 Lymphocytes/100 WBC (Bld) 34.7 % [facility] Automated blood monocyte cou nton 07-19-2020 Monocytes (Bld) [#/Vol] 0.9 10*3/uL 0.0-0.8 [facility] Automated blood platelet cou nt (count/volume)on 07-19-2020 Platelets (Bld) [#/Vol] 221 10*3/uL 150-450 [facility] Automated blood platelet jose antonio n volume measurementon 07-19-2020 Platelet mean volume (Bld) [Entitic vol] 9.4 fL 6.3-10.7 [facility] Automated eosinophil %on Eosinophils/100 WBC (Bld) 3.2 % [facility] Automated eosinophil counton 07-19-2020 Eosinophils (Bld) [#/Vol] 0.3 10*3/uL 0.0-0.45 [facility] Automated erythrocyte distri bution width ratioon 07-19-2020 Erythrocyte distribution width (RBC) [Ratio] 21.2 % 11.9-15.3 [facility] Automated erythrocyte mean c orpuscular hemoglobin (mass per erythrocyte)on 07-19-2020 MCH (RBC) [Entitic mass] 24.1 pg 24.7-34.3 [facility] Automated erythrocyte mean c orpuscular hemoglobin concentration measurement (mass/volon 07-19-2020 MCHC (RBC) [Mass/Vol] 31.0 g/dL 32.0-35.0 [facility] Automated erythrocyte mean c orpuscular volumeon 07-19-2020 MCV (RBC) [Entitic vol] 77.7 fL 80-100 [facility] Automated erythrocytes count in urine sediment (number/area)on 07-19-2020 RBC Auto (Urine sed) [#/Area] 10-19 [HPF] [facility] Automated leukocytes count i n urine sediment (number/area)on 07-19-2020 WBC Auto (Urine sed) [#/Area] Innumerable [HPF] [facility] Automated monocyte %on 07-19 Monocytes/100 WBC (Bld) 11.0 % [facility] Automated neutrophil %on Neutrophils/100 WBC (Bld) 49.4 % [facility] Automated urine color determ inationon 07-19-2020 Color (U) Yellow Yellow [facility] Blood anisocytosis detection on 07-19-2020 Anisocytosis Ql (Bld) Marked [facility] Blood erythrocytes automated count (number/volume)on 07-19-2020 RBC (Bld) [#/Vol] 5.04 10*6/uL 3.60-5.00 [facility] Blood hemoglobin measurement (mass/volume)on 07-19-2020 Hemoglobin (Bld) [Mass/Vol] 12.1 g/dL 11.8-15.4 [facility] Blood leukocytes automated c ount (number/volume)on 07-19-2020 WBC (Bld) [#/Vol] 8.4 10*3/uL 4.5-11.0 [facility] Blood neutrophil count by au tomated method (number/volume)on 07-19-2020 Neutrophils (Bld) [#/Vol] 4.2 10*3/uL 1.8-7.7 [facility] 07-19-2020 Natriuretic peptide B (Bld) [Mass/Vol] 357.0 pg/mL 5-100 [facility] Creatine kinase [Enzymatic a ctivity/volume] in Serum or Plasmaon 07-19-2020 CK [Catalytic activity/Vol] 81 U/L 22-269 [facility] Estimated glomerular filtrat ion rate (GFR) non- Americanon 07-19-2020 GFR/1.73 sq M predicted among non-blacks MDRD (S/P/Bld) [Vol rate/Area] mL/min/{1.73_m2} [facility] Hematocrit [Volume Fraction] of Blood by Automated counton 07-19-2020 Hematocrit (Bld) [Volume fraction] 39.2 % 34.0-46.4 [facility] Hematologyon 07-19-2020 Platelets (Bld) [#/Vol] Normal Normal [facility] PT Coag (PPP) [Time] 51.9 s 9.0-12.9 [facility] Metabolic Panelon 07-19-2020 Magnesium [Mass/Vol] 2.1 mg/dL 1.6-2.6 [facility] Otheron 07-19-2020 Acanthocytes Slight [facility] GFR/1.73 sq M.predicted MDRD (S/P/Bld) [Vol rate/Area] mL/min/{1.73_m2} [facility] Comment on above: GFR estimated refere nce range: According to KDOQI guidelines, <60 ml/min/1.73m2 is sufficient to diagnose a patient with chronic kidney disease. Nucleated RBC/100 WBC (Bld) [Ratio] 0.1 % 0-0.5 [facility] Creatinine Clearance (Chem 67.89 [facility] Platelet Morphology Comment Normal Normal [facility] Poikilocytosis Slight [facility] Schistocytes Slight [facility] Ovalocyte detectionon 2019 Ovalocytes LM Ql (Bld) Moderate [facility] Plate[facility] poor plasma interna tional normalized ratio (INR) by coagulation assay (relaton 07-19-2020 INR Coag (PPP) [Relative time] 4.6 {INR} [facility] Comment on above: INR Therapeutic Rang [...] Plasmaon 07-19-2020 Protein [Mass/Vol] 7.1 g/dL 6.1-7.9 [facility] RBC morphologyon 07-19-2020 RBC morphology finding Nom (Bld) N/A [facility] Serum globulin measurement b y calculation (mass/volume)on 07-19-2020 Globulin (S) [Mass/Vol] 3.2 g/dL [facility] Serum or plasma alanine hernandez otransferase measurement without P-5'-P (enzymatic activion 07-19-2020 ALT No additional P-5'-P [Catalytic activity/Vol] 32 U/L [facility] Serum or plasma albumin/glob ulin mass ratioon 07-19-2020 Albumin/Globulin [Mass ratio] 1.2 {ratio} [facility] Serum or plasma alkaline rosanna sphatase measurement (enzymatic activity/volume)on 07-19-2020 ALP [Catalytic activity/Vol] 152 U/L [facility] Serum or plasma aspartate am inotransferase measurement (enzymatic activity/volume)on 07-19-2020 AST [Catalytic activity/Vol] 42 U/L [facility] Serum or plasma calcium jackie urement (mass/volume)on 07-19-2020 Calcium [Mass/Vol] 9.0 mg/dL 8.2-10.2 [facility] Serum or plasma cardiac trop onin I measurement (mass/volume)on 07-19-2020 Troponin I.cardiac [Mass/Vol] ng/mL 0-0.02 [facility] Comment on above: ELL[facility] [place] Cut off value > or equal to 0.03 ng/mL in conjunction with clinical conditions of myocardial infarction.([email or web address]) Serum or plasma chloride jose antonio surement (moles/volume)on 07-19-2020 Chloride [Moles/Vol] 104 mmol/L 95-114 [facility] Serum or plasma creatine kin ase MB (CKMB)/total creatine kinase (CK) ratio by calculaon 07-19-2020 CK.MB Calc [Catalytic fraction] 3.3 0.00-2.50 [facility] Serum or plasma creatine kin ase MB measurement (mass/volume)on 07-19-2020 CK.MB [Mass/Vol] 2.7 ng/mL 0.6-6.3 [facility] Serum or plasma creatinine m easurement with calculation of estimated glomerular filtron 07-19-2020 Creatinine [Mass/Vol] 0.94 mg/dL 0.44-1.03 [facility] Serum or plasma glucose jackie urement (mass/volume)on 07-19-2020 Glucose [Mass/Vol] 98 mg/dL 70-100 [facility] Comment on above: ADA recommended refe rence rangeRandom Glucose Reference Range is dependent on time and content of last meal. Glucose of more than 200 mg/dL in a nonstressed, ambulatory subject supports the diagnosis of Diabetes Mellitus. Serum or plasma potassium me asurement (moles/volume)on 07-19-2020 Potassium [Moles/Vol] 4.7 mmol/L 3.5-5.1 [facility] Serum or plasma sodium measu rement (moles/volume)on 07-19-2020 Sodium [Moles/Vol] 139 mmol/L 136-146 [facility] Serum or plasma total biliru bin measurement (mass/volume)on 07-19-2020 Bilirubin [Mass/Vol] 0.5 mg/dL 0.3-1.2 [facility] Serum or plasma total carbon dioxide measurement (moles/volume)on 07-19-2020 CO2 [Moles/Vol] 21.9 mmol/L 22.0-30.0 [facility] Serum or plasma urea nitroge n measurement (mass/volume)on 07-19-2020 Urea nitrogen [Mass/Vol] 17 mg/dL 9- [facility] Specific gravity of Urine by Automated test stripon 07-19-2020 Specific gravity (U) [Rel density] 1.015 1.001-1.03 0 [facility] Squamous epithelial cells de tection in urine sediment by light microscopyon 07-19-2020 Epithelial cells.squamous LM Ql (Urine sed) 0-1 [HPF] [facility] Urinalysison 07-19-2020 Hyaline casts LM Ql (Urine sed) 0-8 [LPF] [facility] Urine bacteria detection by automated methodon 07-19-2020 Bacteria Auto Ql (U) None seen None Seen [facility] Urine clarity by refractomet ry automatedon 07-19-2020 Clarity Refractometry automated (U) Clear Clear [facility] Urine culture routineon 07-01 Bacteria identified Cx Nom (U) 2 Days [facility] Urine glucose measurement by automated test strip (mass/volume)on 07-19-2020 Glucose Auto test strip (U) [Mass/Vol] Normal mg/dL Normal [facility] Urine hemoglobin detection b y automated test stripon 07-19-2020 Hemoglobin Auto test strip Ql (U) 1+ Negative [facility] Urine ketones measurement by automated test strip (mass/volume)on 07-19-2020 Ketones (U) [facility]Mass[facility]] [facility] leukocyte esterase det ection by automated test stripon 07-19-2020 Leukocyte esterase Auto test strip Ql (U) 4+ Negative [facility] Urine nitrite detection by t est stripon 07-19-2020 Nitrite Ql (U) Negative Negative [facility] Urine pH measurement by auto mated test stripon 07-19-2020 pH (U) 6.0 [pH] 5.0-9.0 [facility] Urine protein measurement by automated test strip (mass/volume)on 07-19-2020 Protein (U) [Mass/Vol] Negative Negative Fi [facility] Urine total bilirubin detect ion by test stripon 07-19-2020 Bilirubin Ql (U) Negative Negative [facility] Urine urobilinogen measureme nt by automated test strip (mass/volume)on 07-19-2020 Urobilinogen (U) [Mass/Vol] Normal mg/dL Normal [facility] Activated partial thrombopla stin time (aPTT) in platelet poor plasma by coagulation aon 06-15-2020 aPTT Coag (PPP) [Time] 30.9 s 23.0-35.0 Fi [facility] Automated basophil %on 06-15 Basophils/100 WBC (Bld) 1.0 % [facility] Automated basophil counton 1 Basophils (Bld) [#/Vol] 0.1 10*3/uL 0.0-0.2 [facility] Automated blood lymphocyte c ount (number/volume)on 06-15-2020 Lymphocytes (Bld) [#/Vol] 1.1 10*3/uL 1.00-4.8 [facility] Automated blood lymphocyte c ount as percentage of total leukocyteson 06-15-2020 Lymphocytes/100 WBC (Bld) 8.1 % [facility] Automated blood monocyte cou nton 06-15-2020 Monocytes (Bld) [#/Vol] 1.7 10*3/uL 0.0-0.8 [facility] Automated blood platelet cou nt (count/volume)on 06-15-2020 Platelets (Bld) [#/Vol] 170 10*3/uL 150-450 [facility] Automated blood platelet jose antonio n volume measurementon 06-15-2020 Platelet mean volume (Bld) [Entitic vol] 9.5 fL 6.3-10.7 [facility] Automated eosinophil %on Eosinophils/100 WBC (Bld) 0.1 % [facility] Automated eosinophil counton 06-15-2020 Eosinophils (Bld) [#/Vol] 0.0 10*3/uL 0.0-0.45 [facility] Automated erythrocyte distri bution width ratioon 06-15-2020 Erythrocyte distribution width (RBC) [Ratio] 26.0 % 11.9-15.3 [facility] Automated erythrocyte mean c orpuscular hemoglobin (mass per erythrocyte)on 06-15-2020 MCH (RBC) [Entitic mass] 23.8 pg 24.7-34.3 [facility] Automated erythrocyte mean c orpuscular hemoglobin concentration measurement (mass/volon 06-15-2020 MCHC (RBC) [Mass/Vol] 30.8 g/dL 32.0-35.0 [facility] Automated erythrocyte mean c orpuscular volumeon 06-15-2020 MCV (RBC) [Entitic vol] 77.4 fL 80-100 [facility] Automated monocyte %on 06-15 Monocytes/100 WBC (Bld) 12.7 % [facility] Automated neutrophil %on Neutrophils/100 WBC (Bld) 78.1 % [facility] Blood anisocytosis detection on 06-15-2020 Anisocytosis Ql (Bld) Moderate [facility] Blood erythrocytes automated count (number/volume)on 06-15-2020 RBC (Bld) [#/Vol] 4.75 10*6/uL 3.60-5.00 [facility] Blood hemoglobin measurement (mass/volume)on 06-15-2020 Hemoglobin (Bld) [Mass/Vol] 11.3 g/dL 11.8-15.4 [facility] Blood leukocytes automated c ount (number/volume)on 06-15-2020 WBC (Bld) [#/Vol] 13.3 10*3/uL 4.5-11.0 [facility] Blood neutrophil count by au tomated method (number/volume)on 06-15-2020 Neutrophils (Bld) [#/Vol] 10.4 10*3/uL 1.8-7.7 [facility] Body fluid albumin measureme nt (mass/volume)on 06-15-2020 Albumin (Body fld) [Mass/Vol] 3.0 g/dL 3.2-5.5 [facility] COVID-19 Detected/Not Detect edon 06-15-2020 COVID-19 Detected/Not Detected Not detected Not Detecte [facility] Comment on above: This is a duplicate test result based off of the RP2.1 COVID (EUA) test performed within the Microbiology department. [facility] 06-15-2020 Natriuretic peptide B (Bld) [Mass/Vol] 2832.0 pg/mL 5-100 [facility] Creatine kinase [Enzymatic a ctivity/volume] in Serum or Plasmaon 06-15-2020 CK [Catalytic activity/Vol] 125 U/L 22-269 [facility] Estimated glomerular filtrat ion rate (GFR) non- Americanon 06-15-2020 GFR/1.73 sq M predicted among non-blacks MDRD (S/P/Bld) [Vol rate/Area] 53 mL/min/{1.73_m2} [facility] Hematocrit [Volume Fraction] of Blood by Automated counton 06-15-2020 Hematocrit (Bld) [Volume fraction] 36.8 % 34.0-46.4 [facility] Hematologyon 06-15-2020 Platelets (Bld) [#/Vol] Normal Normal [facility] PT Coag (PPP) [Time] 51.7 s 9.0-12.9 [facility] Otheron 06-15-2020 Respiratory Panel (PCR) [facility] Crenated Cell Slight [facility] GFR/1.73 sq M.predicted MDRD (S/P/Bld) [Vol rate/Area] mL/min/{1.73_m2} [facility] Comment on above: GFR estimated refere nce range: According to KDOQI guidelines, <60 ml/min/1.73m2 is sufficient to diagnose a patient with chronic kidney disease. Microcytosis Moderate [facility] Nucleated RBC/100 WBC (Bld) [Ratio] 0.0 % 0-0.5 [facility] Creatinine Clearance (Chem 60.88 [facility] Platelet Morphology Comment Normal Normal [facility] Poikilocytosis Slight [facility] Schistocytes Slight [facility] Ovalocyte detectionon 2019 Ovalocytes LM Ql (Bld) Slight Fi [facility] Platelet poor plasma interna tional normalized ratio (INR) by coagulation assay (relaton 06-15-2020 INR Coag (PPP) [Relative time] 4.6 {INR} [facility] Comment on above: INR Therapeutic Rang [...] Plasmaon 06-15-2020 Protein [Mass/Vol] 5.9 g/dL 6.1-7.9 [facility] RBC morphologyon 06-15-2020 RBC morphology finding Nom (Bld) N/A [facility] Serum globulin measurement b y calculation (mass/volume)on 06-15-2020 Globulin (S) [Mass/Vol] 2.9 g/dL [facility] Serum or plasma alanine hernandez otransferase measurement without P-5'-P (enzymatic activion 06-15-2020 ALT No additional P-5'-P [Catalytic activity/Vol] 14 U/L 10 [facility] Serum or plasma albumin/glob ulin mass ratioon 06-15-2020 Albumin/Globulin [Mass ratio] 1.0 {ratio} [facility] Serum or plasma alkaline rosanna sphatase measurement (enzymatic activity/volume)on 06-15-2020 ALP [Catalytic activity/Vol] 150 U/L 3292 [facility] Serum or plasma aspartate am inotransferase measurement (enzymatic activity/volume)on 06-15-2020 AST [Catalytic activity/Vol] 28 U/L 10 [facility] Serum or plasma calcium jackie urement (mass/volume)on 06-15-2020 Calcium [Mass/Vol] 8.6 mg/dL 8.2-10.2 [facility] Serum or plasma cardiac trop onin I measurement (mass/volume)on 06-15-2020 Troponin I.cardiac [Mass/Vol] 0.03 ng/mL 0-0.02 [facility] Comment on above: ELLA UT Cut off value > or equal to 0.03 ng/mL in conjunction with clinical conditions of myocardial infarction.([email or web address]/guidelines) Serum or plasma chloride jose antonio surement (moles/volume)on 06-15-2020 Chloride [Moles/Vol] 109 mmol/L 95-114 [facility] Serum or plasma creatine kin ase MB (CKMB)/total creatine kinase (CK) ratio by calculaon 06-15-2020 CK.MB Calc [Catalytic fraction] 1.5 0.00-2.50 [facility] Serum or plasma creatine kin ase MB measurement (mass/volume)on 06-15-2020 CK.MB [Mass/Vol] 1.9 ng/mL 0.6-6.3 [facility] Serum or plasma creatinine m easurement with calculation of estimated glomerular filtron 06-15-2020 Creatinine [Mass/Vol] 1.09 mg/dL 0.44-1.03 [facility] Serum or plasma glucose jackie urement (mass/volume)on 06-15-2020 Glucose [Mass/Vol] 139 mg/dL 70-100 [facility] Comment on above: ADA recommended refe rence rangeRandom Glucose Reference Range is dependent on time and content of last meal. Glucose of more than 200 mg/dL in a nonstressed, ambulatory subject supports the diagnosis of Diabetes Mellitus. Serum or plasma potassium me asurement (moles/volume)on 06-15-2020 Potassium [Moles/Vol] 4.6 mmol/L 3.5-5.1 [facility] Serum or plasma sodium measu rement (moles/volume)on 06-15-2020 Sodium [Moles/Vol] 142 mmol/L 136-146 [facility] Serum or plasma total biliru bin measurement (mass/volume)on 06-15-2020 Bilirubin [Mass/Vol] 0.7 mg/dL 0.3-1.2 [facility] Serum or plasma total carbon dioxide measurement (moles/volume)on 06-15-2020 CO2 [Moles/Vol] 23.7 mmol/L 22.0-30.0 [facility] Serum or plasma urea nitroge n measurement (mass/volume)on 06-15-2020 Urea nitrogen [Mass/Vol] 6 mg/dL 9- [facility] Estimated glomerular filtrat ion rate (GFR) non- Americanon 06-07-2020 GFR/1.73 sq M predicted among non-blacks MDRD (S/P/Bld) [Vol rate/Area] mL/min/{1.73_m2} [facility] Otheron 06-07-2020 GFR/1.73 sq M.predicted MDRD (S/P/Bld) [Vol rate/Area] mL/min/{1.73_m2} [facility] Comment on above: GFR estimated refere nce range: According to KDOQI guidelines, <60 ml/min/1.73m2 is sufficient to diagnose a patient with chronic kidney disease. Pharmacy Creatinine Clearance (Chem 75.20 [facility] Serum or plasma calcium jackie urement (mass/volume)on 06-07-2020 Calcium [Mass/Vol] 8.2 mg/dL 8.2-10.2 [facility] Serum or plasma chloride jose antonio surement (moles/volume)on 06-07-2020 Chloride [Moles/Vol] 110 mmol/L 95-114 [facility] Serum or plasma creatinine m easurement with calculation of estimated glomerular filtron 06-07-2020 Creatinine [Mass/Vol] 0.90 mg/dL 0.44-1.03 [facility] Serum or plasma glucose jackie urement (mass/volume)on 06-07-2020 Glucose [Mass/Vol] 83 mg/dL 70-100 [facility] Comment on above: ADA recommended refe rence rangeRandom Glucose Reference Range is dependent on time and content of last meal. Glucose of more than 200 mg/dL in a nonstressed, ambulatory subject supports the diagnosis of Diabetes Mellitus. Serum or plasma potassium me asurement (moles/volume)on 06-07-2020 Potassium [Moles/Vol] 4.4 mmol/L 3.5-5.1 [facility] Serum or plasma sodium measu rement (moles/volume)on 06-07-2020 Sodium [Moles/Vol] 138 mmol/L 136-146 [facility] Serum or plasma total carbon dioxide measurement (moles/volume)on 06-07-2020 CO2 [Moles/Vol] 19.1 mmol/L 22.0-30.0 [facility] Serum or plasma urea nitroge n measurement (mass/volume)on 06-07-2020 Urea nitrogen [Mass/Vol] 5 mg/dL 9 [facility] Automated basophil %on 06-06 Basophils/100 WBC (Bld) 0.9 % [facility] Automated basophil counton 1 Basophils (Bld) [#/Vol] 0.1 10*3/uL 0.0-0.2 [facility] Automated blood lymphocyte c ount (number/volume)on 06-06-2020 Lymphocytes (Bld) [#/Vol] 1.8 10*3/uL 1.00-4.8 [facility] Automated blood lymphocyte c ount as percentage of total leukocyteson 06-06-2020 Lymphocytes/100 WBC (Bld) 25.4 % [facility] Automated blood monocyte cou nton 06-06-2020 Monocytes (Bld) [#/Vol] 0.8 10*3/uL 0.0-0.8 [facility] Automated blood platelet cou nt (count/volume)on 06-06-2020 Platelets (Bld) [#/Vol] 130 10*3/uL 150-450 [facility] Automated blood platelet jose antonio n volume measurementon 06-06-2020 Platelet mean volume (Bld) [Entitic vol] 9.7 fL 6.3-10.7 [facility] Automated eosinophil %on Eosinophils/100 WBC (Bld) 4.1 % [facility] Automated eosinophil counton 06-06-2020 Eosinophils (Bld) [#/Vol] 0.3 10*3/uL 0.0-0.45 [facility] Automated erythrocyte distri bution width ratioon 06-06-2020 Erythrocyte distribution width (RBC) [Ratio] 28.2 % 11.9-15.3 [facility] Automated erythrocyte mean c orpuscular hemoglobin (mass per erythrocyte)on 06-06-2020 MCH (RBC) [Entitic mass] 24.3 pg 24.7-34.3 [facility] Automated erythrocyte mean c orpuscular hemoglobin concentration measurement (mass/volon 06-06-2020 MCHC (RBC) [Mass/Vol] 29.8 g/dL 32.0-35.0 [facility] Automated erythrocyte mean c orpuscular volumeon 06-06-2020 MCV (RBC) [Entitic vol] 81.5 fL 80-100 [facility] Automated monocyte %on 06-06 Monocytes/100 WBC (Bld) 10.6 % [facility] Automated neutrophil %on Neutrophils/100 WBC (Bld) 59.0 % [facility] Blood anisocytosis detection on 06-06-2020 Anisocytosis Ql (Bld) Marked [facility] Blood erythrocytes automated count (number/volume)on 06-06-2020 RBC (Bld) [#/Vol] 4.81 10*6/uL 3.60-5.00 [facility] Blood hemoglobin measurement (mass/volume)on 06-06-2020 Hemoglobin (Bld) [Mass/Vol] 11.7 g/dL 11.8-15.4 [facility] Blood leukocytes automated c ount (number/volume)on 06-06-2020 WBC (Bld) [#/Vol] 7.1 10*3/uL 3.8-11.6 [facility] Blood neutrophil count by au tomated method (number/volume)on 06-06-2020 Neutrophils (Bld) [#/Vol] 4.2 10*3/uL 1.8-7.7 [facility] Blood polychromasia detectio n by light microscopyon 06-06-2020 Polychromasia LM Ql (Bld) Slight [facility] Creatine kinase [Enzymatic a ctivity/volume] in Serum or Plasmaon 06-06-2020 CK [Catalytic activity/Vol] 141 U/L 22-269 [facility] Ferritin [Mass/volume] in Se rum or Plasmaon 06-06-2020 Ferritin [Mass/Vol] 27.5 ng/mL 11-306.8 [facility] Hematocrit [Volume Fraction] of Blood by Automated counton 06-06-2020 Hematocrit (Bld) [Volume fraction] 39.2 % 34.0-46.4 [facility] Hematologyon 06-06-2020 Platelets (Bld) [#/Vol] Decreased Normal [facility] Hypochromia detectionon Hypochromia Ql (Bld) Moderate [facility] Otheron 06-06-2020 Absolute Reticulocyte Count 0.131 10*6/uL 0.024-0.08 4 [facility] Microcytosis Slight [facility] Nucleated RBC/100 WBC (Bld) [Ratio] 0.1 % 0-0.5 [facility] Percent Reticulocyte Count 2.7 % 0.5-1.5 [facility] Platelet Morphology Comment Normal Normal [facility] Poikilocytosis Slight [facility] Schistocytes Rare [facility] Ovalocyte detectionon 2019 Ovalocytes LM Ql (Bld) Slight [facility] RBC morphologyon 06-06-2020 RBC morphology finding Nom (Bld) N/A [facility] Serum or plasma cardiac trop onin I measurement (mass/volume)on 06-06-2020 Troponin I.cardiac [Mass/Vol] 0.08 ng/mL 0-0.02 [facility] Comment on above: ELLA UT Cut off value > or equal to 0.03 ng/mL in conjunction with clinical conditions of myocardial infarction.([email or web address]) Serum or plasma creatine kin ase MB (CKMB)/total creatine kinase (CK) ratio by calculaon 06-06-2020 CK.MB Calc [Catalytic fraction] 4.1 0.00-2.50 [facility] Serum or plasma creatine kin ase MB measurement (mass/volume)on 06-06-2020 CK.MB [Mass/Vol] 5.8 ng/mL 0.6-6.3 [facility] Target cellson 06-06-2020 Target cells LM Ql (Bld) Slight [facility] Teardrop cell detectionon Dacrocytes LM Ql (Bld) Rare [facility] COVID-19 Positive/Negativeon 06-05-2020 COVID-19 Positive/Negative Negative Negative [facility] Comment on above: Testing for SARS-CoV -2 by RT-PCRThis test was developed and its performance characteristics determined by [employer] ([employer] and validated at the [facility]. This test has not been [...] Otheron 06-05-2020 Coronavirus 2019 PCR Interp N/A [facility] Urine lactic acid measuremen ton 06-05-2020 Lactate (U) [Moles/Vol] 1.1 mmol/L [facility] Activated partial thrombopla stin time (aPTT) in platelet poor plasma by coagulation aon 06-04-2020 aPTT Coag (PPP) [Time] 28.9 s 23.0-35.0 Fi [facility] Cardiacon 06-04-2020 Natriuretic peptide B (Bld) [Mass/Vol] 1836.0 pg/mL 5-100 [facility] Hematologyon 06-04-2020 PT Coag (PPP) [Time] 15.7 s 9.0-12.9 [facility] Metabolic Panelon 06-04-2020 Magnesium [Mass/Vol] 1.7 mg/dL 1.6-2.6 [facility] Otheron 06-04-2020 Crenated Cell Moderate [facility] Platelet poor plasma interna tional normalized ratio (INR) by coagulation assay (relaton 06-04-2020 INR Coag (PPP) [Relative time] 1.4 {INR} [facility] Comment on above: INR Therapeutic Rang [...] molar conc 14 mmol/L Normal 10-20 [facility] Comment on above: Performed By: #### 1 [id number] #### [facility] [address] [place] [address] Calcium mass conc 8.8 mg/dL Normal 8.6-10.3 [facility] Comment on above: Performed By: #### 1 [id number] #### [facility] [address] [place] [address] Chloride molar conc 101 mmol/L Normal 98-107 [facility] Comment on above: Performed By: #### 1 [id number] #### [facility] [address] [place] [address] Creatinine mass conc 0.96 mg/dL Normal 0.50-1.05 [facility] Comment on above: Performed By: #### 1 [id number] #### [facility] [address] [place] [address] GFR/1.73 sq M.predicted MDRD vol rate/area mL/min/{1.73_m2} Normal [facility] Comment on above: Result Comment: Inte rpretation for Chronic Kidney Disease: Stages 1&2 >60 Healthy or potential kidney damage. Mild decrease of GFR. Stage 3 30-59 Moderate decrease of GFR. Stage 4 15-29 Severe decrease of GFR. Stage 5 <15 Kidney failure or on dialysis. Performed By: #### 1 [id number] #### [facility] [address] [place] [address] Glucose mass conc 81 mg/dL Normal 70-100 [facility] Comment on above: Performed By: #### 1 [id number] #### [facility] [address] [place] [address] HCO3 molar conc (Bld) 25 mmol/L Normal 21-32 [facility] Comment on above: Performed By: #### 1 [id number] #### [facility] [address] [place] [address] Potassium molar conc 4.4 mmol/L Normal 3.5-5.1 [facility] Comment on above: Performed By: #### 1 [id number] #### [facility] [address] [place] [address] Sodium molar conc 136 mmol/L Normal 136-145 [facility] Comment on above: Performed By: #### 1 [id number] #### [facility] [address] [place] [address] Urea nitrogen mass conc 11 mg/dL Normal 6-23 [facility] Comment on above: Performed By: #### 1 [id number] #### [facility] [address] [place] [address] Urea nitrogen/Creatinine mass ratio 11 mg/mg Normal 5-25 [facility] Comment on above: Performed By: #### 1 [id number] #### [facility] [address] [place] [address] Prothrombin Timeon 9 INR Coag RelTime (PPP) 1.06 {INR} Normal 0.90-1.10 [facility] Comment on above: Performed By: #### 1 [id number] #### [facility] [address] [place] [address] Prothrombin time (PT) Coag time (PPP) 12.0 s Normal 9.7-12.7 [facility] Comment on above: Result Comment: PLEA NOTE NEW REFERENCE RANGE EFFECTIVE 2018 Performed By: #### 1 [id number] #### [facility] [address] [place] [address] Basic Metabolic Panelon Anion gap molar conc 8 mmol/L Low 10-20 [facility] Comment on above: Performed By: #### 1 [id number] #### [facility] [address] [place] [address] Calcium mass conc 9.0 mg/dL Normal 8.6-10.3 [facility] Comment on above: Performed By: #### 1 [id number] #### [facility] [address] [place] [address] Chloride molar conc 100 mmol/L Normal 98-107 [facility] Comment on above: Performed By: #### 1 [id number] #### [facility] [address] [place] [address] Creatinine mass conc 1.05 mg/dL Normal 0.50-1.05 [facility] Comment on above: Performed By: #### 1 [id number] #### [facility] [address] [place] [address] GFR/1.73 sq M.predicted MDRD vol rate/area 56 mL/min/{1.73_m2} Normal [facility] Comment on above: Result Comment: Inte rpretation for Chronic Kidney Disease: Stages 1&2 >60 Healthy or potential kidney damage. Mild decrease of GFR. Stage 3 30-59 Moderate decrease of GFR. Stage 4 15-29 Severe decrease of GFR. Stage 5 <15 Kidney failure or on dialysis. Performed By: #### 1 [id number] #### [facility] [address] [place] [address] Glucose mass conc 78 mg/dL Normal 70-100 [facility] Comment on above: Performed By: #### 1 [id number] #### [facility] [address] [place] [address] HCO3 molar conc (Bld) 31 mmol/L Normal 21-32 [facility] Comment on above: Performed By: #### 1 [id number] #### [facility] [address] [place] [address] Potassium molar conc 4.8 mmol/L Normal 3.5-5.1 [facility] Comment on above: Performed By: #### 1 [id number] #### [facility] [address] [place] [address] Sodium molar conc 134 mmol/L Low 136-145 [facility] Comment on above: Performed By: #### 1 [id number] #### [facility] [address] [place] [address] Urea nitrogen mass conc 16 mg/dL Normal 6-23 [facility] Comment on above: Performed By: #### 1 [id number] #### [facility] [address] [place] [address] Urea nitrogen/Creatinine mass ratio 15 mg/mg Normal 5-25 [facility] Comment on above: Performed By: #### 1 [id number] #### [facility] [address] [place] [address] Prothrombin Timeon 9 INR Coag RelTime (PPP) 1.87 {INR} High 0.90-1.10 [facility] Comment on above: Performed By: #### 1 [id number] #### [facility] [address] [place] [address] Prothrombin time (PT) Coag time (PPP) 21.4 s High 9.7-12.7 [facility] Comment on above: Result Comment: MEGAN NOTE NEW REFERENCE RANGE EFFECTIVE 2018 Performed By: #### 1 [id number] #### [facility] [address] [place] [address] Activated Clotting Time Low Rangeon 08-04-2018 Activated Clotting Time Low Range 192 sec Normal [facility] Comment on above: Result Comment: Norm al: 96-167 Secs(Unheparinized) Stent Implant Range: >300 Secs Sheath Removal: 150-170 Secs CRRT: 180-220 Secs (Continous Renal Replacement Therapy) Performed By: #### 1 [id number] #### [facility] [address] [place] [address] Activated Clotting Time Low Range 180 sec Normal [facility] Comment on above: Result Comment: Norm al: 96-167 Secs(Unheparinized) Stent Implant Range: >300 Secs Sheath Removal: 150-170 Secs CRRT: 180-220 Secs (Continous Renal Replacement Therapy) Performed By: #### 1 [id number] #### [facility] [address] [place] [address] Activated Clotting Time Low Range 121 sec Normal [facility] Comment on above: Result Comment: Norm al: 96-167 Secs(Unheparinized) Stent Implant Range: >300 Secs Sheath Removal: 150-170 Secs CRRT: 180-220 Secs (Continous Renal Replacement Therapy) Performed By: #### 1 [id number] #### [facility] [address] [place] [address] CBCon 08-04-2018 Erythrocyte distribution width Ratio (RBC) 15.8 % High 12.0-15.4 [facility] Comment on above: Performed By: #### 1 [id number] #### [facility] [address] [place] [address] Hematocrit Volume Fraction (Bld) 41.8 % Normal 36.5-46.6 [facility] Comment on above: Performed By: #### 1 [id number] #### [facility] [address] [place] [address] Hemoglobin mass conc (Bld) 13.0 g/dL Normal 11.8-15.3 [facility] Comment on above: Performed By: #### 1 [id number] #### [facility] [address] [place] [address] MCH Entitic mass (RBC) 25.8 pg Low 27.5-33.0 [facility] Comment on above: Performed By: #### 1 [id number] #### [facility] [address] [place] [address] MCHC mass conc (RBC) 31.1 g/dL Normal 30.1-35.0 [facility] Comment on above: Performed By: #### 1 [id number] #### [facility] [address] [place] [address] MCV Entitic volume (RBC) 83.1 fL Low 85.4-100.0 [facility] Comment on above: Performed By: #### 1 [id number] #### [facility] [address] [place] [address] NRBC Absolute 0.00 10*3/uL Normal [facility] Comment on above: Performed By: #### 1 [id number] #### [facility] [address] [place] [address] NRBC Automated 0.0 /100{WBCs} Normal [facility] Comment on above: Performed By: #### 1 [id number] #### [facility] [address] [place] [address] Platelet mean volume Entitic volume (Bld) 11.5 fL Normal 9.9-12.1 [facility] Comment on above: Performed By: #### 1 [id number] #### [facility] [address] [place] [address] Platelets #/vol (Bld) 233 10*3/uL Normal 155-404 [facility] Comment on above: Performed By: #### 1 [id number] #### [facility] [address] [place] [address] RBC #/vol (Bld) 5.03 10*6/uL Normal 3.85-5.10 [facility] Comment on above: Performed By: #### 1 [id number] #### [facility] [address] [place] [address] RDW SD 46.8 fL Normal 39.3-48.6 [facility] Comment on above: Performed By: #### 1 [id number] #### [facility] [address] [place] [address] WBC #/vol (Bld) 11.2 10*3/uL High 4.4-9.9 [facility] Comment on above: Performed By: #### 1 [id number] #### [facility] [address] [place] [address] Prothrombin Timeon 8 INR Coag RelTime (PPP) 1.18 {INR} High 0.90-1.10 [facility] Comment on above: Performed By: #### 1 [id number] #### [facility] [address] [place] [address] Prothrombin time (PT) Coag time (PPP) 13.4 s High 9.7-12.7 [facility] Comment on above: Result Comment: Delt a check investigation completed per policy PLEASE NOTE NEW REFERENCE RANGE EFFECTIVE 2018 Performed By: #### 1 [id number] #### [facility] [address] [place] [address] Basic Metabolic Panelon 12-0 Anion gap molar conc 14 mmol/L Normal 10-20 [facility] Comment on above: Performed By: #### 1 [id number] #### [facility] [address] [place] [address] Calcium mass conc 9.5 mg/dL Normal 8.6-10.3 [facility] Comment on above: Performed By: #### 1 [id number] #### [facility] [address] [place] [address] Chloride molar conc 103 mmol/L Normal 98-107 [facility] Comment on above: Performed By: #### 1 [id number] #### [facility] [address] [place] [address] Creatinine mass conc 0.94 mg/dL Normal 0.50-1.05 [facility] Comment on above: Performed By: #### 1 [id number] #### [facility] [address] [place] [address] GFR/1.73 sq M.predicted MDRD vol rate/area mL/min/{1.73_m2} Normal [facility] Comment on above: Result Comment: Inte rpretation for Chronic Kidney Disease: Stages 1&2 >60 Healthy or potential kidney damage. Mild decrease of GFR. Stage 3 30-59 Moderate decrease of GFR. Stage 4 15-29 Severe decrease of GFR. Stage 5 <15 Kidney failure or on dialysis. Performed By: #### 1 [id number] #### [facility] [address] [place] [address] Glucose mass conc 81 mg/dL Normal 70-100 [facility] Comment on above: Performed By: #### 1 [id number] #### [facility] [address] [place] [address] HCO3 molar conc (Bld) 26 mmol/L Normal 21-32 [facility] Comment on above: Performed By: #### 1 [id number] #### [facility] [address] [place] [address] Potassium molar conc 3.8 mmol/L Normal 3.5-5.1 [facility] Comment on above: Performed By: #### 1 [id number] #### [facility] [address] [place] [address] Sodium molar conc 139 mmol/L Normal 136-145 [facility] Comment on above: Performed By: #### 1 [id number] #### [facility] [address] [place] [address] Urea nitrogen mass conc 10 mg/dL Normal 6-23 [facility] Comment on above: Performed By: #### 1 [id number] #### [facility] [address] [place] [address] Urea nitrogen/Creatinine mass ratio 11 mg/mg Normal 5-25 [facility] Comment on above: Performed By: #### 1 [id number] #### [facility] [address] [place] [address] CBCon 08-02-2018 Erythrocyte distribution width Ratio (RBC) 15.9 % High 12.0-15.4 [facility] Comment on above: Performed By: #### 1 [id number] #### [facility] [address] [place] [id number] Hematocrit Volume Fraction (Bld) 47.6 % High 36.5-46.6 [facility] Comment on above: Performed By: #### 1 [id number] #### [facility] [address] [place] [id number] Hemoglobin mass conc (Bld) 14.3 g/dL Normal 11.8-15.3 [facility] Comment on above: Performed By: #### 1 [id number] #### [facility] [address] [place] [address] MCH Entitic mass (RBC) 26.1 pg Low 27.5-33.0 [facility] Comment on above: Performed By: #### 1 [id number] #### [facility] [address] [place] [id number] MCHC mass conc (RBC) 30.0 g/dL Low 30.1-35.0 [facility] Comment on above: Performed By: #### 1 [id number] #### [facility] [address] [place] [address] MCV Entitic volume (RBC) 86.9 fL Normal 85.4-100.0 [facility] Comment on above: Performed By: #### 1 [id number] #### [facility] [address] [place] [address] NRBC Absolute 0.00 10*3/uL Normal [facility] Comment on above: Performed By: #### 1 [id number] #### [facility] [address] [place] [address] NRBC Automated 0.0 /100{WBCs} Normal [facility] Comment on above: Performed By: #### 1 [id number] #### [facility] [address] [place] [address] Platelet mean volume Entitic volume (Bld) 13.7 fL High 9.9-12.1 [facility] Comment on above: Performed By: #### 1 [id number] #### [facility] [address] [place] [address] Platelets #/vol (Bld) 223 10*3/uL Normal 155-404 [facility] Comment on above: Performed By: #### 1 [id number] #### [facility] [address] [place] [address] RBC #/vol (Bld) 5.48 10*6/uL High 3.85-5.10 [facility] Comment on above: Performed By: #### 1 [id number] #### [facility] [address] [place] [address] RDW SD 50.1 fL High 39.3-48.6 [facility] Comment on above: Performed By: #### 1 [id number] #### [facility] [address] [place] [address] WBC #/vol (Bld) 12.6 10*3/uL High 4.4-9.9 [facility] Comment on above: Performed By: #### 1 [id number] #### [facility] [address] [place] [address] Prothrombin Timeon 8 INR Coag RelTime (PPP) 3.04 {INR} High 0.90-1.10 [facility] Comment on above: Performed By: #### 1 [id number] #### [facility] [address] [place] [address] Prothrombin time (PT) Coag time (PPP) 35.1 s High 9.7-12.7 [facility] Comment on above: Result Comment: MEGAN RUBIN NOTE NEW REFERENCE RANGE EFFECTIVE 2018 Performed By: #### 1 [id number] #### [facility] [address] [place] [address] Basic Metabolic Panelon 11-0 Anion gap molar conc 11 mmol/L Normal 10-20 [facility] Comment on above: Performed By: #### 1 [id number] #### [facility] [address] [place] [address] Calcium mass conc 9.0 mg/dL Normal 8.6-10.3 [facility] Comment on above: Performed By: #### 1 [id number] #### [facility] [address] [place] [address] Chloride molar conc 99 mmol/L Normal 98-107 [facility] Comment on above: Performed By: #### 1 [id number] #### [facility] [address] [place] [address] Creatinine mass conc 1.00 mg/dL Normal 0.50-1.05 [facility] Comment on above: Performed By: #### 1 [id number] #### [facility] [address] [place] [address] GFR/1.73 sq M.predicted MDRD vol rate/area 59 mL/min/{1.73_m2} Normal [facility] Comment on above: Result Comment: Inte rpretation for Chronic Kidney Disease: Stages 1&2 >60 Healthy or potential kidney damage. Mild decrease of GFR. Stage 3 30-59 Moderate decrease of GFR. Stage 4 15-29 Severe decrease of GFR. Stage 5 <15 Kidney failure or on dialysis. Performed By: #### 1 [id number] #### [facility] [address] [place] [address] Glucose mass conc 81 mg/dL Normal 70-100 [facility] Comment on above: Performed By: #### 1 [id number] #### [facility] [address] [place] [address] HCO3 molar conc (Bld) 27 mmol/L Normal 21-32 [facility] Comment on above: Performed By: #### 1 [id number] #### [facility] [address] [place] [address] Potassium molar conc 4.1 mmol/L Normal 3.5-5.1 [facility] Comment on above: Performed By: #### 1 [id number] #### [facility] [address] [place] [address] Sodium molar conc 133 mmol/L Low 136-145 [facility] Comment on above: Performed By: #### 1 [id number] #### [facility] [address] [place] [address] Urea nitrogen mass conc 14 mg/dL Normal 6-23 [facility] Comment on above: Performed By: #### 1 [id number] #### [facility] [address] [place] [address] Urea nitrogen/Creatinine mass ratio 14 mg/mg Normal 5-25 [facility] Comment on above: Performed By: #### 1 [id number] #### [facility] [address] [place] [address] Magnesiumon 07-01-2018 Magnesium mass conc 1.9 mg/dL Normal 1.6-2.4 [facility] Comment on above: Performed By: #### 1 [id number] #### [facility] [address] [place] [address] Prothrombin Timeon 8 INR Coag RelTime (PPP) 3.10 {INR} High 0.90-1.10 [facility] Comment on above: Performed By: #### 1 [id number] #### [facility] [address] [place] [address] Prothrombin time (PT) Coag time (PPP) 35.8 s High 9.7-12.7 [facility] Comment on above: Result Comment: MEGAN RUBIN NOTE NEW REFERENCE RANGE EFFECTIVE 2018 Performed By: #### 1 [id number] #### [facility] [address] [place] [address] Basic Metabolic Panelon 11-0 Anion gap molar conc 12 mmol/L Normal 10-20 [facility] Comment on above: Performed By: #### 1 [id number] #### [facility] [address] [place] [address] Calcium mass conc 9.0 mg/dL Normal 8.6-10.3 [facility] Comment on above: Performed By: #### 1 [id number] #### [facility] [address] [place] [address] Chloride molar conc 101 mmol/L Normal 98-107 [facility] Comment on above: Performed By: #### 1 [id number] #### [facility] [address] [place] [address] Creatinine mass conc 1.04 mg/dL Normal 0.50-1.05 [facility] Comment on above: Performed By: #### 1 [id number] #### [facility] [address] [place] [address] GFR/1.73 sq M.predicted MDRD vol rate/area 56 mL/min/{1.73_m2} Normal [facility] Comment on above: Result Comment: Inte rpretation for Chronic Kidney Disease: Stages 1&2 >60 Healthy or potential kidney damage. Mild decrease of GFR. Stage 3 30-59 Moderate decrease of GFR. Stage 4 15-29 Severe decrease of GFR. Stage 5 <15 Kidney failure or on dialysis. Performed By: #### 1 [id number] #### [facility] [address] [place] [address] Glucose mass conc 89 mg/dL Normal 70-100 [facility] Comment on above: Performed By: #### 1 [id number] #### [facility] [address] [place] [address] HCO3 molar conc (Bld) 25 mmol/L Normal 21-32 [facility] Comment on above: Performed By: #### 1 [id number] #### [facility] [address] [place] [address] Potassium molar conc 4.3 mmol/L Normal 3.5-5.1 [facility] Comment on above: Performed By: #### 1 [id number] #### [facility] [address] [place] [address] Sodium molar conc 134 mmol/L Low 136-145 [facility] Comment on above: Performed By: #### 1 [id number] #### [facility] [address] [place] [address] Urea nitrogen mass conc 12 mg/dL Normal 6-23 [facility] Comment on above: Performed By: #### 1 [id number] #### [facility] [address] [place] [address] Urea nitrogen/Creatinine mass ratio 12 mg/mg Normal 5-25 [facility] Comment on above: Performed By: #### 1 [id number] #### [facility] [address] [place] [address] Magnesiumon 06-30-2018 Magnesium mass conc 2.0 mg/dL Normal 1.6-2.4 [facility] Comment on above: Performed By: #### 1 [id number] #### [facility] [address] [place] [address] Prothrombin Timeon 8 INR Coag RelTime (PPP) 2.93 {INR} High 0.90-1.10 [facility] Comment on above: Performed By: #### 2 [id number] #### [facility] [address] [place] [address] Prothrombin time (PT) Coag time (PPP) 33.9 s High 9.7-12.7 [facility] Comment on above: Result Comment: MEGAN RUBIN NOTE NEW REFERENCE RANGE EFFECTIVE 2018 Performed By: #### 2 [id number] #### [facility] [address] [place] [address] Basic Metabolic Panelon 06-01 Anion gap molar conc 8 mmol/L Low 10-20 [facility] Comment on above: Performed By: #### 2 [id number] #### [facility] [address] [place] [address] Calcium mass conc 8.7 mg/dL Normal 8.6-10.3 [facility] Comment on above: Performed By: #### 2 [id number] #### [facility] [address] [place] [address] Chloride molar conc 103 mmol/L Normal 98-107 [facility] Comment on above: Performed By: #### 2 [id number] #### [facility] [address] [place] [address] Creatinine mass conc 0.89 mg/dL Normal 0.50-1.05 [facility] Comment on above: Performed By: #### 2 [id number] #### [facility] [address] [place] [address] GFR/1.73 sq M.predicted MDRD vol rate/area mL/min/{1.73_m2} Normal [facility] Comment on above: Result Comment: Inte rpretation for Chronic Kidney Disease: Stages 1&2 >60 Healthy or potential kidney damage. Mild decrease of GFR. Stage 3 30-59 Moderate decrease of GFR. Stage 4 15-29 Severe decrease of GFR. Stage 5 <15 Kidney failure or on dialysis. Performed By: #### 2 [id number] #### [facility] [address] [place] [address] Glucose mass conc 125 mg/dL High 70-100 [facility] Comment on above: Performed By: #### 2 [id number] #### [facility] [address] [place] [address] HCO3 molar conc (Bld) 26 mmol/L Normal 21-32 [facility] Comment on above: Performed By: #### 2 [id number] #### [facility] [address] [place] [address] Potassium molar conc 4.0 mmol/L Normal 3.5-5.1 [facility] Comment on above: Performed By: #### 2 [id number] #### [facility] [address] [place] [address] Sodium molar conc 133 mmol/L Low 136-145 [facility] Comment on above: Performed By: #### 2 [id number] #### [facility] [address] [place] [address] Urea nitrogen mass conc 10 mg/dL Normal 6-23 [facility] Comment on above: Performed By: #### 2 [id number] #### [facility] [address] [place] [address] Urea nitrogen/Creatinine mass ratio 11 mg/mg Normal 5-25 [facility] Comment on above: Performed By: #### 2 [id number] #### [facility] [address] [place] [address] Magnesiumon 06-29-2018 Magnesium mass conc 1.8 mg/dL Normal 1.6-2.4 [facility] Comment on above: Performed By: #### 2 [id number] #### [facility] [address] [place] [address] Prothrombin Timeon 8 INR Coag RelTime (PPP) 3.23 {INR} High 0.90-1.10 [facility] Comment on above: Performed By: #### 2 [id number] #### [facility] [address] [place] [address] Prothrombin time (PT) Coag time (PPP) 37.4 s High 9.7-12.7 [facility] Comment on above: Result Comment: MEGAN RUBIN NOTE NEW REFERENCE RANGE EFFECTIVE 2018 Performed By: #### 2 [id number] #### [facility] [address] [place] [address] Basic Metabolic Panelon 06-01 Anion gap molar conc 11 mmol/L Normal 10-20 [facility] Comment on above: Performed By: #### 2 [id number] #### [facility] [address] [place] [address] Calcium mass conc 8.5 mg/dL Low 8.6-10.3 [facility] Comment on above: Performed By: #### 2 [id number] #### [facility] [address] [place] [address] Chloride molar conc 104 mmol/L Normal 98-107 [facility] Comment on above: Performed By: #### 2 [id number] #### [facility] [address] [place] [address] Creatinine mass conc 0.90 mg/dL Normal 0.50-1.05 [facility] Comment on above: Performed By: #### 2 [id number] #### [facility] [address] [place] [address] GFR/1.73 sq M.predicted MDRD vol rate/area mL/min/{1.73_m2} Normal [facility] Comment on above: Result Comment: Inte rpretation for Chronic Kidney Disease: Stages 1&2 >60 Healthy or potential kidney damage. Mild decrease of GFR. Stage 3 30-59 Moderate decrease of GFR. Stage 4 15-29 Severe decrease of GFR. Stage 5 <15 Kidney failure or on dialysis. Performed By: #### 2 [id number] #### [facility] [address] [place] [address] Glucose mass conc 99 mg/dL Normal 70-100 [facility] Comment on above: Performed By: #### 2 [id number] #### [facility] [address] [place] [address] HCO3 molar conc (Bld) 23 mmol/L Normal 21-32 [facility] Comment on above: Performed By: #### 2 [id number] #### [facility] [address] [place] [address] Potassium molar conc 4.3 mmol/L Normal 3.5-5.1 [facility] Comment on above: Performed By: #### 2 [id number] #### [facility] [address] [place] [address] Sodium molar conc 134 mmol/L Low 136-145 [facility] Comment on above: Performed By: #### 2 [id number] #### [facility] [address] [place] [address] Urea nitrogen mass conc 15 mg/dL Normal 6-23 [facility] Comment on above: Performed By: #### 2 [id number] #### [facility] [address] [place] [address] Urea nitrogen/Creatinine mass ratio 17 mg/mg Normal 5-25 [facility] Comment on above: Performed By: #### 2 [id number] #### [facility] [address] [place] [address] Magnesiumon 06-28-2018 Magnesium mass conc 1.9 mg/dL Normal 1.6-2.4 [facility] Comment on above: Performed By: #### 2 [id number] #### [facility] [address] [place] [address] Prothrombin Timeon 8 INR Coag RelTime (PPP) 4.27 {INR} High 0.90-1.10 [facility] Comment on above: Performed By: #### 2 [id number] #### [facility] [address] [place] [address] Prothrombin time (PT) Coag time (PPP) 49.7 s High 9.7-12.7 [facility] Comment on above: Result Comment: MEGAN RUBIN NOTE NEW REFERENCE RANGE EFFECTIVE 2018 Performed By: #### 2 [id number] #### [facility] [address] [place] [address] Basic Metabolic Panelon 10- Anion gap molar conc 12 mmol/L Normal 10-20 [facility] Comment on above: Performed By: #### 2 [id number] #### [facility] [address] [place] [address] Calcium mass conc 8.4 mg/dL Low 8.6-10.3 [facility] Comment on above: Performed By: #### 2 [id number] #### [facility] [address] [place] [address] Chloride molar conc 109 mmol/L High 98-107 [facility] Comment on above: Performed By: #### 2 [id number] #### [facility] [address] [place] [address] Creatinine mass conc 1.04 mg/dL Normal 0.50-1.05 [facility] Comment on above: Performed By: #### 2 [id number] #### [facility] [address] [place] [address] GFR/1.73 sq M.predicted MDRD vol rate/area 56 mL/min/{1.73_m2} Normal [facility] Comment on above: Result Comment: Inte rpretation for Chronic Kidney Disease: Stages 1&2 >60 Healthy or potential kidney damage. Mild decrease of GFR. Stage 3 30-59 Moderate decrease of GFR. Stage 4 15-29 Severe decrease of GFR. Stage 5 <15 Kidney failure or on dialysis. Performed By: #### 2 [id number] #### [facility] [address] [place] [address] Glucose mass conc 84 mg/dL Normal 70-100 [facility] Comment on above: Performed By: #### 2 [id number] #### [facility] [address] [place] [address] HCO3 molar conc (Bld) 21 mmol/L Normal 21-32 [facility] Comment on above: Performed By: #### 2 [id number] #### [facility] [address] [place] [address] Potassium molar conc 4.5 mmol/L Normal 3.5-5.1 [facility] Comment on above: Performed By: #### 2 [id number] #### [facility] [address] [place] [address] Sodium molar conc 138 mmol/L Normal 136-145 [facility] Comment on above: Performed By: #### 2 [id number] #### [facility] [address] [place] [address] Urea nitrogen mass conc 16 mg/dL Normal 6-23 [facility] Comment on above: Performed By: #### 2 [id number] #### [facility] [address] [place] [address] Urea nitrogen/Creatinine mass ratio 15 mg/mg Normal 5-25 [facility] Comment on above: Performed By: #### 2 [id number] #### [facility] [address] [place] [address] Anion gap molar conc 10 mmol/L Normal 10-20 [facility] Comment on above: Performed By: #### 2 [id number] #### [facility] [address] [place] [address] Calcium mass conc 8.6 mg/dL Normal 8.6-10.3 [facility] Comment on above: Performed By: #### 2 [id number] #### [facility] [address] [place] [address] Chloride molar conc 107 mmol/L Normal 98-107 [facility] Comment on above: Performed By: #### 2 [id number] #### [facility] [address] [place] [address] Creatinine mass conc 1.05 mg/dL Normal 0.50-1.05 [facility] Comment on above: Performed By: #### 2 [id number] #### [facility] [address] [place] [address] GFR/1.73 sq M.predicted MDRD vol rate/area 56 mL/min/{1.73_m2} Normal [facility] Comment on above: Result Comment: Inte rpretation for Chronic Kidney Disease: Stages 1&2 >60 Healthy or potential kidney damage. Mild decrease of GFR. Stage 3 30-59 Moderate decrease of GFR. Stage 4 15-29 Severe decrease of GFR. Stage 5 <15 Kidney failure or on dialysis. Performed By: #### 2 [id number] #### [facility] [address] [place] [address] Glucose mass conc 95 mg/dL Normal 70-100 [facility] Comment on above: Performed By: #### 2 [id number] #### [facility] [address] [place] [address] HCO3 molar conc (Bld) 26 mmol/L Normal 21-32 [facility] Comment on above: Performed By: #### 2 [id number] #### [facility] Lab [address] [place] [address] Potassium molar conc 4.3 mmol/L Normal 3.5-5.1 [facility] Comment on above: Performed By: #### 2 [id number] #### [facility] [address] [place] [address] Sodium molar conc 139 mmol/L Normal 136-145 [facility] Comment on above: Performed By: #### 2 [id number] #### [facility] [address] [place] [address] Urea nitrogen mass conc 17 mg/dL Normal 6-23 [facility] Comment on above: Performed By: #### 2 [id number] #### [facility] [address] [place] [address] Urea nitrogen/Creatinine mass ratio 16 mg/mg Normal 5-25 [facility] Comment on above: Performed By: #### 2 [id number] #### [facility] [address] [place] [address] CBC With Differentialon -2 Basophils #/vol (Bld) 0.11 10*3/uL High 0.01-0.07 [facility] Comment on above: Performed By: #### 2 [id number] #### [facility] [address] [place] [address] Basophils/100 WBC (Bld) 1.2 % Normal 0.1-1.2 [facility] Comment on above: Performed By: #### 2 [id number] #### [facility] [address] [place] [address] Eosinophils #/vol (Bld) 0.45 10*3/uL Normal 0.04-0.50 [facility] Comment on above: Performed By: #### 2 [id number] #### [facility] [address] [place] [address] Eosinophils/100 WBC (Bld) 4.7 % Normal 0.0-8.1 [facility] Comment on above: Performed By: #### 2 [id number] #### [facility] [address] [place] [address] Erythrocyte distribution width Ratio (RBC) 15.7 % High 12.0-15.4 [facility] Comment on above: Performed By: #### 2 [id number] #### [facility] [address] [place] [address] Hematocrit Volume Fraction (Bld) 38.5 % Normal 36.5-46.6 [facility] Comment on above: Performed By: #### 2 [id number] #### [facility] [address] [place] [address] Hemoglobin mass conc (Bld) 11.9 g/dL Normal 11.8-15.3 [facility] Comment on above: Performed By: #### 2 [id number] #### [facility] [address] [place] [address] Imm Grans Absolute 0.09 10*3/uL Normal 0.00-0.21 [facility] Comment on above: Performed By: #### 2 [id number] #### [facility] [address] [place] [address] Immature granulocytes #/vol (Bld) 0.9 % Normal [facility] Comment on above: Performed By: #### 2 [id number] #### [facility] [address] [place] [address] Lymphocytes #/vol (Bld) 3.15 10*3/uL High 0.40-2.84 [facility] Comment on above: Performed By: #### 2 [id number] #### [facility] [address] [place] [address] Lymphocytes/100 WBC (Bld) 33.2 % Normal 15.7-50.5 [facility] Comment on above: Performed By: #### 2 [id number] #### [facility] [address] [place] [address] MCH Entitic mass (RBC) 26.1 pg Low 27.5-33.0 [facility] Comment on above: Performed By: #### 2 [id number] #### [facility] [address] [place] [address] MCHC mass conc (RBC) 30.9 g/dL Normal 30.1-35.0 [facility] Comment on above: Performed By: #### 2 [id number] #### [facility] [address] [place] [address] MCV Entitic volume (RBC) 84.4 fL Low 85.4-100.0 [facility] Comment on above: Performed By: #### 2 [id number] #### [facility] [address] [place] [address] Monocytes #/vol (Bld) 0.91 10*3/uL High 0.25-0.83 [facility] Comment on above: Performed By: #### 2 [id number] #### [facility] [address] [place] [address] Monocytes/100 WBC (Bld) 9.6 % Normal 4.8-12.7 [facility] Comment on above: Performed By: #### 2 [id number] #### [facility] [address] [place] [address] Neutrophils Absolute 4.78 10*3/uL Normal 1.95-6.85 [facility] Comment on above: Performed By: #### 2 [id number] #### [facility] [address] [place] [address] Neutrophils/100 WBC (Bld) 50.4 % Normal 36.8-73.2 [facility] Comment on above: Performed By: #### 2 [id number] #### [facility] [address] [place] [address] NRBC Absolute 0.00 10*3/uL Normal [facility] Comment on above: Performed By: #### 2 [id number] #### [facility] [address] [place] [address] NRBC Automated 0.0 /100{WBCs} Normal [facility] Comment on above: Performed By: #### 2 [id number] #### [facility] [address] [place] [address] Platelet mean volume Entitic volume (Bld) 11.1 fL Normal 9.9-12.1 [facility] Comment on above: Performed By: #### 2 [id number] #### [facility] [address] [place] [address] Platelets #/vol (Bld) 215 10*3/uL Normal 155-404 [facility] Comment on above: Performed By: #### 2 [id number] #### [facility] [address] [place] [address] RBC #/vol (Bld) 4.56 10*6/uL Normal 3.85-5.10 [facility] Comment on above: Performed By: #### 2 [id number] #### [facility] [address] [place] [address] RDW SD 48.0 fL Normal 39.3-48.6 [facility] Comment on above: Performed By: #### 2 [id number] #### [facility] [address] [place] [address] WBC #/vol (Bld) 9.5 10*3/uL Normal 4.4-9.9 [facility] Comment on above: Performed By: #### 2 [id number] #### [facility] [address] [place] [address] Comprehensive Metabolic Pane siddharth 06-27-2018 Albumin mass conc 3.9 g/dL Normal 3.4-5.0 [facility] Comment on above: Performed By: #### 1 [id number] #### [facility] [address] [place] [address] Albumin/Globulin mass ratio 1.3 {ratio} Normal 0.9-2.4 [facility] Comment on above: Performed By: #### 1 [id number] #### [facility] [address] [place] [address] ALP enzyme act/vol 150 U/L High 45-117 [facility] Comment on above: Performed By: #### 1 [id number] #### [facility] [address] [place] [address] ALT enzyme act/vol 11 U/L Normal 7-45 [facility] Comment on above: Performed By: #### 1 [id number] #### [facility] [address] [place] [address] Anion gap molar conc 13 mmol/L Normal 10-20 [facility] Comment on above: Performed By: #### 1 [id number] #### [facility] [address] [place] [address] AST enzyme act/vol 21 U/L Normal 13-39 [facility] Comment on above: Performed By: #### 1 [id number] #### [facility] [address] [place] [address] Bilirubin mass conc 0.3 mg/dL Normal 0.0-1.2 [facility] Comment on above: Performed By: #### 1 [id number] #### [facility] [address] [place] [address] Calcium mass conc 9.0 mg/dL Normal 8.6-10.3 [facility] Comment on above: Performed By: #### 1 [id number] #### [facility] [address] [place] [address] Chloride molar conc 103 mmol/L Normal 98-107 [facility] Comment on above: Performed By: #### 1 [id number] #### [facility] [address] [place] [address] Creatinine mass conc 1.09 mg/dL High 0.50-1.05 [facility] Comment on above: Performed By: #### 1 [id number] #### [facility] [address] [place] [address] GFR/1.73 sq M.predicted MDRD vol rate/area 53 mL/min/{1.73_m2} Normal [facility] Comment on above: Result Comment: Inte rpretation for Chronic Kidney Disease: Stages 1&2 >60 Healthy or potential kidney damage. Mild decrease of GFR. Stage 3 30-59 Moderate decrease of GFR. Stage 4 15-29 Severe decrease of GFR. Stage 5 <15 Kidney failure or on dialysis. Performed By: #### 1 [id number] #### [facility] [address] [place] [address] Glucose mass conc 94 mg/dL Normal 70-100 [facility] Comment on above: Performed By: #### 1 [id number] #### [facility] [address] [place] [address] HCO3 molar conc (Bld) 27 mmol/L Normal 21-32 [facility] Comment on above: Performed By: #### 1 [id number] #### [facility] [address] [place] [address] Potassium molar conc 4.3 mmol/L Normal 3.5-5.1 [facility] Comment on above: Performed By: #### 1 [id number] #### [facility] [address] [place] [address] Protein mass conc 6.8 g/dL Normal 6.4-8.2 [facility] Comment on above: Performed By: #### 1 [id number] #### [facility] [address] [place] [address] Sodium molar conc 139 mmol/L Normal 136-145 [facility] Comment on above: Performed By: #### 1 [id number] #### [facility] [address] [place] [address] Urea nitrogen mass conc 19 mg/dL Normal 6-23 [facility] Comment on above: Performed By: #### 1 [id number] #### [facility] [address] [place] [address] Urea nitrogen/Creatinine mass ratio 17 mg/mg Normal 5-25 [facility] Comment on above: Performed By: #### 1 [id number] #### [facility] [address] [place] [address] Magnesiumon 06-27-2018 Magnesium mass conc 2.0 mg/dL Normal 1.6-2.4 [facility] Comment on above: Performed By: #### 2 [id number] #### [facility] [address] [place] [address] Magnesium mass conc 1.9 mg/dL Normal 1.6-2.4 [facility] Comment on above: Performed By: #### 1 [id number] #### [facility] [address] [place] [address] Partial Thromboplastin Timeo n 06-27-2018 aPTT Coag time (Bld) 29.7 s Normal 25.0-36.0 [facility] Comment on above: Result Comment: . The APTT is no longer used for monitoring Unfractionated Heparin Therapy. For monitoring Heparin Therapy, use the Heparin Assay. Performed By: #### 3 [id number] #### [facility] [address] [place] [address] Prothrombin Timeon 8 INR Coag RelTime (PPP) 3.54 {INR} High 0.90-1.10 [facility] Comment on above: Performed By: #### 3 [id number] #### [facility] [address] [place] [address] Prothrombin time (PT) Coag time (PPP) 41.0 s High 9.7-12.7 [facility] Comment on above: Result Comment: PLEA SE NOTE NEW REFERENCE RANGE EFFECTIVE 2018 Performed By: #### 3 [id number] #### [facility] [address] [place] [address] INR Coag RelTime (PPP) 2.98 {INR} High 0.90-1.10 [facility] Comment on above: Performed By: #### 3 [id number] #### [facility] [address] [place] [address] Prothrombin time (PT) Coag time (PPP) 33.4 s High 9.8-12.7 [facility] Comment on above: Performed By: #### 3 [id number] #### [facility] [address] [place] [address] TSHon 06-27-2018 Thyrotropin Qn 7.04 mU/L High 0.44-3.98 [facility] Comment on above: Performed By: #### 1 [id number] #### [facility] [address] [place] [address] Thyroxine, Freeon 06-27-2018 Thyroxine, Free 0.90 ng/dL Normal 0.61-1.12 [facility] Comment on above: Performed By: #### 1 [id number] #### [facility] [address] [place] [address] Triiodothyronine, Freeon Triiodothyronine, Free 2.3 pg/mL Normal 1.8-4.2 [facility] Comment on above: Performed By: #### F RT3 #### [facility] [address] [place] [address] Drugs of Abuse, Urine(7)on 0 05-12-2018 Amphetamines/Metamphet amines, Urine Not Detected Normal [facility] Comment on above: Performed By: #### 7 [id number] #### [facility] [address] [place] [address] Barbiturates, Urine Detected Abnormal [facility] Comment on above: Performed By: #### 7 [id number] #### [facility] [address] [place] [address] Benzodiazepines, Urine Not Detected Normal [facility] Comment on above: Performed By: #### 7 [id number] #### [facility] [address] [place] [address] Cannabinoids, Urine Not Detected Normal [facility] Comment on above: Performed By: #### 7 [id number] #### [facility] [address] [place] [address] Cocaine, Urine Not Detected Normal [facility] Comment on above: Performed By: #### 7 [id number] #### [facility] [address] [place] [address] Methadone, Urine Not Detected Normal [facility] Comment on above: Performed By: #### 7 [id number] #### [facility] [address] [place] [address] Opiates, Urine Not Detected Normal [facility] Comment on above: Performed By: #### 7 [id number] #### [facility] [address] [place] [address] PCP, Urine Not Detected Normal [facility] Comment on above: Result Comment: Urin e toxicology screen results are to be used for medical purposes only. It is recommended that any result reported as Detected be confirmed by a more specific alternative chemical method. Drug Analyzed Cutoff Concentration(ng/mL) Barbiturates 200 Benzodiazepines 200 Cocaine 150 Opiates 300 Amphetamines 500 Cannabinoids 50 Methadone 150 PCP 25 Performed By: #### 7 [id number] #### [facility] [address] [place] [address] Vital Signs Date Time Vital Sign Value Performing Clinician Facility 03-30-2024 11:54-0400 Body temperature 97.4 [degF] MD Tanner Mae Jr Work Phone: [facility] 03-30-2024 11:54-0400 Diastolic blood pressure 74 mm[Hg] MD Tanner Mae Jr Work Phone: [facility] 03-30-2024 11:54-0400 Heart rate 81 /min MD Tanner Mae Jr Work Phone: [facility] 03-30-2024 11:54-0400 Respiratory rate 16 /min MD Tanner Mae Jr Work Phone: [facility] 03-30-2024 11:54-0400 SaO2% (BldA) [Mass fraction] 98 % MD Tanner Mae Jr Work Phone: [facility] 03-30-2024 11:54-0400 Systolic blood pressure 113 mm[Hg] MD Tanner Mae Jr Work Phone: [facility] 03-30-2024 03:37-0400 Body height 162.56 cm MD Tanner Mae Jr Work Phone: [facility] 03-30-2024 03:37-0400 Body weight 70.6 kg MD Tanner Mae Jr Work Phone: [facility] 03-30-2024 02:07-0400 Diastolic blood pressure 68 mm[Hg] MD Tanner Mae Jr Work Phone: [facility] 03-30-2024 02:07-0400 Heart rate 80 /min MD Tanner Mae Jr Work Phone: [facility] 03-30-2024 02:07-0400 Systolic blood pressure 157 mm[Hg] MD Tanner Mae Jr Work Phone: [facility] 03-30-2024 02:05-0400 Respiratory rate 16 /min MD Tanner Mae Jr Work Phone: [facility] 03-30-2024 02:05-0400 SaO2% (BldA) [Mass fraction] 99 % MD Tanner Mae Jr Work Phone: [facility] 03-29-2024 23:32-0400 Body height 162.56 cm MD Tanner Mae Jr Work Phone: [facility] 03-29-2024 23:32-0400 Body weight 70.9 kg MD Tanner Mae Jr Work Phone: [facility] 03-29-2024 23:30-0400 Body temperature 98 [degF] MD Tanner Mae Jr Work Phone: [facility] 02-22-2024 11:20-0400 Body height 152.4 cm MD Tanner Mae Jr Work Phone: [facility] 02-22-2024 11:20-0400 Diastolic blood pressure 72 mm[Hg] MD Tanner Mae Jr Work Phone: [facility] 02-22-2024 11:20-0400 Heart rate 80 /min MD Tanner Mae Jr Work Phone: [facility] 02-22-2024 11:20-0400 SaO2% (BldA) [Mass fraction] 98 % MD Tanner Mae Jr Work Phone: [facility] 02-22-2024 11:20-0400 Systolic blood pressure 120 mm[Hg] MD Tanner Mae Jr Work Phone: [facility] 02-18-2024 09:48-0400 Body height 152.4 cm MD Tanner Mae Jr Work Phone: [facility] 02-18-2024 09:48-0400 Body mass index (BMI) [Ratio] 29.5 kg/m2 MD Tanner aMe Jr Work Phone: [facility] 02-18-2024 09:48-0400 Body weight 68.49 kg MD Tanner Mae Jr Work Phone: [facility] 02-18-2024 09:48-0400 Diastolic blood pressure 60 mm[Hg] MD Tanner Mae Jr Work Phone: [facility] 02-18-2024 09:48-0400 Heart rate 67 /min MD Tanner Mae Jr Work Phone: [facility] 02-18-2024 09:48-0400 SaO2% (BldA) [Mass fraction] 97 % MD Tanner Mae Jr Work Phone: [facility] 02-18-2024 09:48-0400 Systolic blood pressure 100 mm[Hg] MD Tanner Mae Jr Work Phone: [facility] 01-24-2024 07:01-0400 Diastolic blood pressure 56 mm[Hg] MD Tanner Mae Jr Work Phone: [facility] 01-24-2024 07:01-0400 Heart rate 80 /min MD Tanner Mae Jr Work Phone: [facility] 01-24-2024 07:01-0400 Respiratory rate 14 /min MD Tanner Mae Jr Work Phone: [facility] 01-24-2024 07:01-0400 SaO2% (BldA) [Mass fraction] 100 % MD Tanner Mae Jr Work Phone: [facility] 01-24-2024 07:01-0400 Systolic blood pressure 117 mm[Hg] MD Tanner Mae Jr Work Phone: [facility] 01-24-2024 00:46-0400 Body height 152.4 cm MD Tanner Mae Jr Work Phone: [facility] 01-24-2024 00:46-0400 Body temperature 97.6 [degF] MD Tanner Mae Jr Work Phone: [facility] 01-24-2024 00:46-0400 Body weight 65.31 kg MD Tanner Mae Jr Work Phone: [facility] 11-11-2023 16:14-0400 Body height 152.4 cm DO Darian Itzkowitz Work Phone: [facility] 11-11-2023 16:14-0400 Body mass index (BMI) [Ratio] 29.2 kg/m2 DO Darian Itzkowitz Work Phone: [facility] 11-11-2023 16:14-0400 Body temperature 97.8 [degF] DO Darian Itzkowitz Work Phone: [facility] 11-11-2023 16:14-0400 Body weight 68.03 kg DO Darian Itzkowitz Work Phone: [facility] 11-11-2023 16:14-0400 Diastolic blood pressure 68 mm[Hg] DO Darian Itzkowitz Work Phone: [facility] 11-11-2023 16:14-0400 Heart rate 88 /min DO Darian Itzkowitz Work Phone: [facility] 11-11-2023 16:14-0400 Respiratory rate 18 /min DO Darian Itzkowitz Work Phone: [facility] 11-11-2023 16:14-0400 SaO2% (BldA) [Mass fraction] 99 % DO Darian Itzkowitz Work Phone: [facility] 11-11-2023 16:14-0400 Systolic blood pressure 134 mm[Hg] DO Darian Smiley Work Phone: [facility] 10-07-2023 08:44-0500 Diastolic blood pressure 77 mm[Hg] Noman Glover MD Work Phone: [employer] 10-07-2023 08:44-0500 Heart rate 80 /min Noman Glover MD Work Phone: [employer] 10-07-2023 08:44-0500 Systolic blood pressure 113 mm[Hg] Noman Glover MD Work Phone: [employer] 10-07-2023 08:00-0500 Body temperature 99.3 [degF] Noman Glvoer MD Work Phone: [employer] 10-07-2023 08:00-0500 Respiratory rate 18 /min Noman Glover MD Work Phone: [employer] 10-07-2023 08:00-0500 SaO2% (BldA) [Mass fraction] 97 % Noman Glover MD Work Phone: [employer] 10-06-2023 04:41-0500 Body mass index (BMI) [Ratio] 26.61 kg/m2 Noman Glover MD Work Phone: [employer] 10-06-2023 04:41-0500 Body weight 66 kg Noman Glover MD Work Phone: [employer] 10-05-2023 19:24-0500 Body height 157.5 cm Noman Glover MD Work Phone: [employer] 09-29-2023 08:20-0500 SaO2% (BldA) [Mass fraction] 98 % Margareth Nunez MD Work Phone: [facility] 09-29-2023 06:08-0500 Body height 157.5 cm Margareth Nunez MD Work Phone: [facility] 09-29-2023 06:08-0500 Body mass index (BMI) [Ratio] 27.46 kg/m2 Margareth Nunez MD Work Phone: [facility] 09-29-2023 06:08-0500 Body temperature 98.8 [degF] Margareth Nunez MD Work Phone: [facility] 09-29-2023 06:08-0500 Body weight 68.1 kg Margareth Nunez MD Work Phone: [facility] 09-29-2023 06:08-0500 Diastolic blood pressure 63 mm[Hg] Margareth Nunez MD Work Phone: [facility] 09-29-2023 06:08-0500 Heart rate 81 /min Margareth Nunez MD Work Phone: [facility] 09-29-2023 06:08-0500 Respiratory rate 16 /min Margareth Nunez MD Work Phone: [facility] 09-29-2023 06:08-0500 Systolic blood pressure 119 mm[Hg] Margareth Nunez MD Work Phone: [facility] 04-24-2022 13:31-0400 Body height 157.48 cm Shaikh Crystal Work Phone: [facility] [address] DO Work Phone: 04-24-2022 13:31-0400 Body mass index (BMI) [Ratio] 29.63 kg/m2 Shaikh Crystal Work Phone: [facility] 320 DO Work Phone: 04-24-2022 13:31-0400 Body surface area Derived from formula 1.75 m2 Shaikh Crystal Work Phone: [facility] 320 DO Work Phone: 04-24-2022 13:31-0400 Body weight 73.48 kg Shaikh Crystal Work Phone: [facility] [place] [address] DO Work Phone: 04-24-2022 13:31-0400 Diastolic blood pressure 60 mm[Hg] Shaikh Crystal Work Phone: [facility] 320 DO Work Phone: 04-24-2022 13:31-0400 Heart rate 85 /min Shaikh Crystal Work Phone: [facility] 320 DO Work Phone: 04-24-2022 13:31-0400 Systolic blood pressure 102 mm[Hg] Shaikh Crystal Work Phone: [facility] 320 DO Work Phone: 12-10-2021 06:30-0400 Body height 160.02 cm Jeane Dykes Other [employer] Other 12-05-2021 08:47-0400 Body height 157.48 cm No PCP None [facility] 320 DO Work Phone: 12-05-2021 08:47-0400 Body mass index (BMI) [Ratio] 27.49 kg/m2 No PCP None [facility] 320 DO Work Phone: 12-05-2021 08:47-0400 Body surface area Derived from formula 1.69 m2 No PCP None [facility] 320 DO Work Phone: 12-05-2021 08:47-0400 Body weight 68.18 kg No PCP None [facility] 320 DO Work Phone: 12-05-2021 08:47-0400 Diastolic blood pressure 72 mm[Hg] No PCP None [facility] 320 DO Work Phone: 12-05-2021 08:47-0400 Heart rate 76 /min No PCP None [facility] 320 DO Work Phone: 12-05-2021 08:47-0400 Systolic blood pressure 104 mm[Hg] No PCP None [facility] 320 DO Work Phone: 10-14-2021 11:23-0500 20 1 Nadir Hoskins DO Work Phone: [facility] 250 DO Work Phone: Comment on above: [id number] 10-13-2021 22:41-0500 Diastolic blood pressure 46 mm[Hg] DO Darian Itzkowitz Work Phone: [facility] 10-13-2021 22:41-0500 Heart rate 59 /min DO Darian Itzkowitz Work Phone: [facility] 10-13-2021 22:41-0500 Systolic blood pressure 80 mm[Hg] DO Darian Itzkowitz Work Phone: [facility] 10-13-2021 21:29-0500 Respiratory rate 18 /min DO Darian Itzkowitz Work Phone: [facility] 10-13-2021 21:29-0500 SaO2% (BldA) [Mass fraction] 96 % DO Darian Itzkowitz Work Phone: [facility] 10-13-2021 13:17-0500 Body height 160.02 cm DO Darian Itzkowitz Work Phone: [facility] 10-13-2021 13:17-0500 Body mass index (BMI) [Ratio] 26.5 kg/m2 DO Darian Itzkowitz Work Phone: [facility] 10-13-2021 13:17-0500 Body temperature 97.4 [degF] DO Darian Itzkowitz Work Phone: [facility] 10-13-2021 13:17-0500 Body weight 68.03 kg DO Darian Smiley Work Phone: [facility] 11-25-2020 15:56-0400 Body Temperature 97.5 [degF] [facility] Baljit [facility] 11-25-2020 15:56-0400 BP Diastolic 85 mm[Hg] [facility] Baljit [facility] 11-25-2020 15:56-0400 BP Systolic 130 mm[Hg] [facility] Baljit [facility] 11-25-2020 15:56-0400 Pulse (Heart Rate) 79 /min [facility] Baljit [facility] 11-25-2020 15:56-0400 Pulse Oximetry 98 % [facility] Baljit [facility] 11-25-2020 15:56-0400 Respiratory Rate 18 /min [facility] Baljit [facility] 11-25-2020 15:56-0400 SaO2% (BldA) [Mass fraction] 98 % Dariandebbie Emmanuelj luis Work Phone: [facility] 11-25-2020 15:19-0400 Height 157.48 cm [facility] Baljit [facility] 11-25-2020 05:57-0400 Body weight 83.9 kg [facility] Baljit [facility] 11-23-2020 18:10-0400 BMI (Body Mass Index) 33.9 kg/m2 [facility] 11-23-2020 18:10-0400 Body Temperature 97.9 [degF] [facility] Baljit [facility] 11-23-2020 18:10-0400 Body weight 84.2 kg [facility] Baljit [facility] 11-23-2020 18:10-0400 BP Diastolic 81 mm[Hg] Darian Baljit [facility] 11-23-2020 18:10-0400 BP Systolic 121 mm[Hg] Darian Baljit [facility] 11-23-2020 18:10-0400 Height 157.48 cm [facility] Baljit [facility] 11-23-2020 18:10-0400 Pulse (Heart Rate) 83 /min [facility] 11-23-2020 18:10-0400 Pulse Oximetry 97 % Darian Baljit [facility] 11-23-2020 18:10-0400 Respiratory Rate 19 /min [facility] Baljit [facility] 08-17-2020 03:00-0500 Body Temperature 97.5 [degF] [facility] Bal[facility]it [facility] 08-17-2020 03:00-0500 BP Diastolic 52 mm[Hg] Darian Baljit [facility] 08-17-2020 03:00-0500 BP Systolic 98 mm[Hg] Darian Baljit [facility] 08-17-2020 03:00-0500 Pulse (Heart Rate) 94 /min [facility] 08-17-2020 03:00-0500 Pulse Oximetry 99 % [facility] Baljit [facility] 08-17-2020 03:00-0500 Respiratory Rate 16 /min [facility] Baljit [facility] 08-16-2020 22:30-0500 BMI (Body Mass Index) 4648.4 kg/m2 [facility] Baljit [facility] 08-16-2020 22:30-0500 Body weight 81.1 kg [facility] Baljit [facility] 08-16-2020 22:30-0500 Height 13.21 cm [facility] Baljit [facility] 08-16-2020 22:18-0500 BP Diastolic 56 mm[Hg] Dariandebbie Smiley [facility] 08-16-2020 22:18-0500 BP Systolic 107 mm[Hg] Darian Baljit [facility] 08-16-2020 22:18-0500 Pulse (Heart Rate) 96 /min Darian Baljit [facility] 08-16-2020 22:18-0500 Pulse Oximetry 95 % [facility] Baljit [facility] 08-16-2020 22:18-0500 Respiratory Rate 18 /min [facility] Baljit [facility] 08-16-2020 15:38-0500 BMI (Body Mass Index) 28.3 kg/m2 [facility] 08-16-2020 15:38-0500 Body Temperature 97.4 [degF] [facility] Baljit [facility] 08-16-2020 15:38-0500 Body weight 72.57 kg [facility] Baljit [facility] 08-16-2020 15:38-0500 Height 160.02 cm Darian Baljit [facility] 07-26-2020 01:57-0500 BP Diastolic 58 mm[Hg] Darian Baljit [facility] 07-26-2020 01:57-0500 BP Systolic 118 mm[Hg] [facility] Baljit [facility] 07-26-2020 01:57-0500 Pulse (Heart Rate) 59 /min [facility] 07-26-2020 01:57-0500 Pulse Oximetry 97 % [facility] Baljit [facility] 07-26-2020 01:57-0500 Respiratory Rate 16 /min [facility] Baljit [facility] 07-26-2020 00:44-0500 BMI (Body Mass Index) 30.5 kg/m2 [facility] 07-26-2020 00:44-0500 Body Temperature 98.4 [degF] Dariandebbie Smiley [facility] 07-26-2020 00:44-0500 Body weight 75.74 kg [facility] 07-26-2020 00:44-0500 Height 157.48 cm [facility] Baljit [facility] 07-22-2020 22:23-0500 BP Diastolic 63 mm[Hg] Darian Baljit [facility] 07-22-2020 22:23-0500 BP Systolic 131 mm[Hg] Darian Baljit [facility] 07-22-2020 22:23-0500 Pulse (Heart Rate) 60 /min [facility] Baljit [facility] 07-22-2020 22:23-0500 Pulse Oximetry 98 % [facility] Baljit [facility] 07-22-2020 22:23-0500 Respiratory Rate 18 /min [facility] Baljit [facility] 07-22-2020 17:54-0500 BMI (Body Mass Index) 31.8 kg/m2 [facility] Baljit [facility] 07-22-2020 17:54-0500 Body Temperature 98 [degF] Darianrakesh Smiley [facility] 07-22-2020 17:54-0500 Body weight 78.9 kg Darian Baljit [facility] 07-22-2020 17:54-0500 Height 157.48 cm [facility] Baljit [facility] 07-19-2020 10:11-0500 BP Diastolic 60 mm[Hg] Darian Baljit [facility] 07-19-2020 10:11-0500 BP Systolic 138 mm[Hg] [facility] Baljit [facility] 07-19-2020 10:11-0500 Pulse (Heart Rate) 94 /min [facility] Baljit [facility] 07-19-2020 10:11-0500 Pulse Oximetry 98 % Darian Baljit [facility] 07-19-2020 10:11-0500 Respiratory Rate 16 /min [facility] Baljit [facility] 07-19-2020 07:25-0500 BMI (Body Mass Index) 30.9 kg/m2 [facility] 07-19-2020 07:25-0500 Body Temperature 98 [degF] [facility] Baljit [facility] 07-19-2020 07:25-0500 Body weight 76.7 kg [facility] Baljit [facility] 07-19-2020 07:25-0500 Height 157.48 cm [facility] Baljit [facility] 06-15-2020 21:00-0400 Body Temperature 98.1 [degF] [facility] Baljit [facility] 06-15-2020 21:00-0400 BP Diastolic 77 mm[Hg] [facility] Baljit [facility] 06-15-2020 21:00-0400 BP Systolic 124 mm[Hg] [facility] Baljit [facility] 06-15-2020 21:00-0400 Pulse (Heart Rate) 61 /min [facility] Baljit [facility] 06-15-2020 21:00-0400 Pulse Oximetry 96 % [facility] Baljit [facility] 06-15-2020 21:00-0400 Respiratory Rate 16 /min [facility] Baljit [facility] 06-15-2020 17:00-0400 BMI (Body Mass Index) 30.9 kg/m2 [facility] Lien[facility]ate [facility] 06-15-2020 17:00-0400 Body weight 76.7 kg [facility] Baljit [facility] 06-15-2020 17:00-0400 Height 157.48 cm [facility] 06-07-2020 17:00-0400 Body Temperature 97.2 [degF] Darian [facility] 06-07-2020 17:00-0400 BP Diastolic 71 mm[Hg] Darian [facility] 06-07-2020 17:00-0400 BP Systolic 104 mm[Hg] Darian [facility] 06-07-2020 17:00-0400 Pulse (Heart Rate) 60 /min [facility] 06-07-2020 17:00-0400 Pulse Oximetry 98 % [facility]ate [facility] 06-07-2020 17:00-0400 Respiratory Rate 14 /min [facility] Baljit [facility] Reg [facility] 06-07-2020 06:56-0400 Body weight 84.1 kg [facility] Avis [facility] 06-05-2020 14:28-0400 Height 157.48 cm [facility] Avis [facility] 06-05-2020 06:29-0400 BMI (Body Mass Index) 32.8 kg/m2 [facility] Encounters Encounter Date Encounter Type Care Provider Facility Start: 05-11-2024 End: 05-11-2024 ambulatory [facility] [place] Start: 03-30-2024 End: 03-30-2024 ambulatory Kendrick Jorgensen Facility:[facility] Start: 03-30-2024 End: 03-30-2024 Evaluation and management of inpatient MD Tanner Mae Jr Work Phone: [facility] Work Phone: Start: 03-30-2024 End: 03-30-2024 observation encounter MD Tanner Mae Jr Work Phone: [facility] Work Phone: Start: 02-22-2024 End: 02-22-2024 ambulatory MD Tanner Mae Jr Work Phone: [facility] Work Phone: Start: 02-22-2024 End: 02-22-2024 Patient encounter procedure MD Tanner Mae Jr Work Phone: [facility] Work Phone: Start: 02-18-2024 End: 02-18-2024 ambulatory MD Tanner Mae Jr Work Phone: [facility] Work Phone: Start: 02-18-2024 End: 02-18-2024 Patient encounter procedure MD Tanner Mae Jr Work Phone: [facility] Work Phone: Start: 02-17-2024 Non-patient / Non-visit MD Jon Schreiber Work Phone: [facility] Work Phone: Start: 01-24-2024 End: 01-24-2024 Emergency department patient visit MD Tanner Mae Jr Work Phone: [facility] Work Phone: Start: 01-04-2024 End: 01-07-2024 ambulatory LIAM HYMAN [facility] Start: 11-11-2023 End: 11-11-2023 ambulatory DO Darian Baljit Work Phone: [facility] Work Phone: Start: 11-11-2023 End: 11-11-2023 Patient encounter procedure DO Darian Itzkowitz Work Phone: [facility] Work Phone: Start: 10-12-2023 End: 10-13-2023 ambulatory [facility] Start: 10-12-2023 End: 10-12-2023 Subsequent hospital visit by physician Heydi Jiang [facility] Medication Management Comment on above: Longstanding persist ent atrial fibrillation (HCC) (Primary Dx) Start: 10-11-2023 End: 10-12-2023 ambulatory [facility] Start: 10-11-2023 End: 10-11-2023 Subsequent hospital visit by physician Marcelo Champagne [facility] Work Phone: [facility] Medication Management Start: 10-06-2023 ambulatory Arjun Josep EPPS Facility :[facility] Start: 10-05-2023 End: 10-07-2023 ambulatory [facility] Start: 10-05-2023 End: 10-07-2023 Emergency department patient visit Noman Glover MD Work Phone: [facility] Comment on above: Hypokalemia (Primary Dx); Dizziness; Longstanding persistent atrial fibrillation (HCC) Start: 09-29-2023 End: 09-29-2023 ambulatory [facility] Start: 09-29-2023 End: 09-29-2023 Subsequent hospital visit by physician Margareth Nunez MD Work Phone: [facility] Comment on above: Biventricular implan table cardioverter-defibrillator (ICD) in situ (Primary Dx); Elective replacement of implantable cardioverter-defibrillator (ICD) battery required; Atrial tachycardia; Paroxysmal atrial fibrillation (CMS/HCC); CAD (coronary artery disease); VT (ventricular tachycardia) (CMS/HCC) Start: 09-27-2023 End: 09-27-2023 ambulatory Amanda Grace Other [employer] Other Start: 09-27-2023 Telephone encounter Amanda Herzog her [facility] Start: 09-22-2023 End: 09-22-2023 ambulatory Amanda Grace Other [employer] Other Start: 09-22-2023 Telephone encounter Amanda Herzog her [facility] Start: 09-03-2023 ambulatory MARGARETH NUNEZ [facility] Start: 09-02-2023 End: 09-02-2023 Subsequent hospital visit by physician [facility] Comment on above: ICD (implantable car dioverter-defibrillator) battery depletion Start: 09-02-2023 End: 09-02-2023 [facility] Start: 08-31-2023 End: 08-31-2023 ambulatory Amanda Grace Other [employer] Other Start: 08-31-2023 Telephone encounter Amanda Herzog her [facility] Start: 08-09-2023 End: 08-09-2023 Patient encounter procedure PETE Grace Work Phone: [facility]Pac[facility] Check Start: 08-09-2023 End: 08-09-2023 ambulatory PETE Grace Work Phone: [facility] Work Phone: Comment on above: Persistent atrial fi brillation (HCC) (Primary Dx) Start: 08-02-2023 End: 08-02-2023 ambulatory Amanda Grace Other [employer] Other Start: 08-02-2023 Telephone encounter Amanda Herzog her [facility] Start: 07-28-2023 Telephone encounter David Osei MD Work Phone: Cardiology Start: 07-25-2023 Follow-up encounter David Osei MD Work Phone: [facility] Start: 07-25-2023 ICD Remote F/U David fairbanks MD Work Phone: [facility] Start: 07-07-2023 ambulatory Arjun EPPS Facility : [facility] Start: 06-04-2023 ambulatory Arjun EPPS Facility : [facility] Start: 06-03-2023 ambulatory Arjun EPPS Facility:[facility] Start: 04-30-2023 Follow-up encounter David Osei MD Work Phone: [facility] Start: 04-30-2023 ICD Remote F/U David fairbanks MD Work Phone: [facility] Start: 04-17-2023 Follow-up encounter David Osei MD Work Phone: [facility] Start: 04-17-2023 ICD Remote F/U David fairbanks MD Work Phone: [facility] Start: 04-05-2023 Follow-up encounter David Osei MD Work Phone: [facility] Start: 04-05-2023 ICD Remote F/U David fairbanks MD Work Phone: [facility] Start: 03-29-2023 Rx Renewal Shaikh Crystal Work Phone: [facility] 320 DO Work Phone: Start: 03-24-2023 Follow-up encounter David Osei MD Work Phone: [facility] Start: 03-24-2023 ICD Remote F/U David fairbanks MD Work Phone: [facility] Start: 03-20-2023 Follow-up encounter David Osei MD Work Phone: [facility] Start: 03-20-2023 ICD Remote F/U David fairbanks MD Work Phone: [facility] Start: 03-15-2023 ambulatory Margareth Nunez M.D. Facility : Start: 02-28-2023 Follow-up encounter David Osei MD Work Phone: [facility] Start: 02-28-2023 ICD Remote F/U David fairbanks MD Work Phone: [facility] Start: 02-25-2023 Follow-up encounter David Osei MD Work Phone: [facility] Start: 02-25-2023 ICD Remote F/U David fairbanks MD Work Phone: [facility] Start: 01-28-2023 AUDIT Roy Fawwad Work Phone: [facility] 320 DO Work Phone: Start: 01-27-2023 End: 01-27-2023 ambulatory ROY H FAWWAD Facility:H1 Start: 01-26-2023 Rx Renewal Roy Fawwad Work Phone: [facility] 250 DO Work Phone: Start: 01-03-2023 End: 01-03-2023 ambulatory ROY H FAWWAD Facility:[facility] Start: 12-28-2022 End: 01-27-2023 ambulatory ROY H FAWWAD Facility:[facility] Start: 11-30-2022 End: 12-25-2022 ambulatory ROY H FAWWAD Facility:[facility] Start: 11-25-2022 Follow-up encounter David Osei MD Work Phone: [facility] Start: 11-25-2022 ICD Remote F/U David fairbanks MD Work Phone: [facility] Start: 10-28-2022 End: 11-27-2022 ambulatory [...] [id number] TRIM-AF) Start: 08-31-2022 End: 09-30-2022 ambulatory SHAIKH Shawna VÁZQUEZWAD Facility:[facility]1 Start: 08-17-2022 Follow-up encounter David Osei MD Work Phone: [facility] Start: 08-17-2022 ICD Remote F/U David fairbanks MD Work Phone: [facility] Start: 07-30-2022 End: 08-30-2022 ambulatory SHAIKH Shawna VÁZQUEZWAD Facility:[facility]1 Start: 07-27-[address] [facility] Comment on above: Opened In Error Start: 06-30-2022 End: 07-29-2022 ambulatory SHAIKH Shawna VÁZQUEZWAD Facility:[facility]1 Start: 06-29-2022 Other Shaikh Radhad Work Phone: [facility] 320 DO Work Phone: Start: 06-29-2022 Follow-up encounter David Osei MD Work Phone: [facility] Start: 06-29-2022 ICD Remote F/U David fairbanks MD Work Phone: [facility] Start: 05-31-2022 End: 06-29-2022 ambulatory ROY H KATHIEWAD Facility:[facility]1 Start: 05-28-2022 Follow-up encounter David Osei MD Work Phone: [facility] Start: 05-28-2022 ICD Remote F/U David fairbanks MD Work Phone: [facility] Start: 05-06-2022 Patient encounter procedure Shaikh Crystal Work Phone: [facility] 250 DO Work Phone: Start: 04-30-2022 End: 05-30-2022 ambulatory SHAIKH Shawna ROJAS Facility:[facility]1 Start: 04-24-2022 Current tobacco non-user cad cap copd pv dm Shaikh Crystal Work Phone: [facility] 320 DO Work Phone: Start: 04-23-2022 End: 04-24-2022 ambulatory SHAIKH Shawna ROJAS Facility:[facility]1 Start: 04-16-2022 End: 04-17-2022 ambulatory SHAIKH Shawna ROJAS Facility:[facility] Start: 04-09-2022 Follow-up encounter David Osei MD Work Phone: [facility] Start: 04-09-2022 ICD Remote F/U David fairbanks MD Work Phone: [facility] Start: 04-07-2022 Telephone encounter No PCP None [facility] 250 DO Work Phone: Start: 03-30-2022 End: 04-29-2022 ambulatory SHAIKH Shawna ROJAS Facility:[facility] Start: 03-12-2022 Rx Renewal [facility] [facility] Work Phone: Start: 03-02-2022 End: 03-27-2022 ambulatory SHAIKH Shawna ROJAS Facility:[facility] Start: 02-24-2022 Telephone encounter No PCP None [facility] 250 DO Work Phone: Start: 02-18-2022 Rx Renewal No PCP [facility] [facility] Work Phone: Start: 02-17-2022 Patient encounter procedure No PCP None [facility] DO Work Phone: Start: 01-22-2022 Chart Update No PCP None [facility] [facility] [address] [place] Work Phone: Start: 01-08-2022 Follow-up encounter David Osei MD Work Phone: [facility] Start: 01-08-2022 ICD Remote F/U David fairbanks MD Work Phone: [facility] Start: 01-07-2022 AUDIT No PCP None [facility] [facility] DO Work Phone: Start: 12-31-2021 End: 12-31-2021 ambulatory Jeane Fitt Other [employer] Other Start: 12-31-2021 Telephone encounter Jeane Juan [facility] Start: 12-26-2021 End: 12-26-2021 ambulatory Jeane Fitt Other [employer] Other Start: 12-26-2021 Telephone encounter Jeane Juan [facility] Start: 12-23-2021 ([facility] R A/c) [facility] Repeat A/C Jeane Juan [facility] Start: 12-23-2021 End: 12-23-2021 ambulatory Jeane Fitt Other [employer] Other Start: 12-17-2021 (Repeat [facility]) Jeane Juan [facility] Start: 12-17-2021 End: 12-17-2021 ambulatory Jeane Fitt Other [employer] Other Start: 12-17-2021 Telephone encounter Jeane Fitt [facility] Start: 12-12-2021 AUDIT No PCP None [facility] [facility] [address] DO Work Phone: Start: 12-11-2021 End: 12-11-2021 ambulatory Jeane Fitt Other [employer] Other Start: 12-11-2021 Telephone encounter Jeane Jania Higuera [facility] Start: 12-10-2021 (Repeat [facility]) Jeane Juan [facility] Start: 12-10-2021 End: 12-10-2021 ambulatory Jeane Fitt Other [employer] Other Start: 12-05-2021 Current tobacco non-user cad cap copd pv dm No PCP None [facility] 320 DO Work Phone: Start: 11-26-2021 End: 11-26-2021 ambulatory Jeane Fitt Other [employer] Other Start: 11-26-2021 Telephone encounter Jeanealfredo Dykes [facility] Start: 11-19-2021 (Repeat [facility]) Jeane Dykes [facility] Start: 11-19-2021 End: 11-19-2021 ambulatory Jeane Fitt Other [employer] Other Start: 11-19-2021 Telephone encounter Jeane Juan [place] [facility] Start: 11-18-2021 End: 11-18-2021 ambulatory Jeane Fitt Other [employer] Other Start: 11-18-2021 Telephone encounter Jeane Juan [place] [facility] Start: 11-11-2021 ([facility] R A/c) [facility] Repeat A/C Jeane [facility] [facility] Start: 11-11-2021 End: 11-11-2021 ambulatory Jeane Fitt Other [employer] Other Start: 11-10-2021 End: 11-10-2021 ambulatory Jeane Fitt Other [employer] Other Start: 11-10-2021 Telephone encounter Jeane Juan [facility] Start: 11-05-2021 (Repeat ACH) Jeane yDkes [facility] Start: 11-05-2021 End: 11-05-2021 ambulatory Jeane Fitt Other [employer] Other Start: 11-03-2021 End: 11-03-2021 ambulatory Jeane Fitt Other [employer] Other Start: 11-03-2021 Telephone encounter Jeane Juan [facility] Start: 10-30-2021 End: 10-30-2021 ambulatory Jeane Fitt Other [employer] Other Start: 10-30-2021 Telephone encounter Jeane Juan [facility] Start: 10-29-2021 (Repeat ACH) Jeane Juan [facility] Start: 10-29-2021 End: 10-29-2021 ambulatory Jeane Fitt Other [employer] Other Start: 10-29-2021 Telephone encounter Jeane Juan [facility] Start: 10-23-2021 (Repeat ACH) Jeane Dykes [facility] Start: 10-23-2021 End: 10-23-2021 ambulatory Jeane Fitt Other [employer] Other Start: 10-22-2021 Patient encounter procedure Nadir Hoskins DO Work Phone: [facility] DO Work Phone: Start: 10-13-2021 Evaluation and management of inpatient DO Darian Smiley Work Phone: [facility] [place] Start: 09-09-2021 End: 09-09-2021 ambulatory Jeane Fitt Other [employer] Other Start: 09-09-2021 Telephone encounter Jeanealfredo Higuera [facility] Start: 09-04-2021 ([facility] R A/c) [facility] Repeat A/C Jeane Juan [facility] Start: 09-04-2021 End: 09-04-2021 ambulatory Jeane Fitt Other [employer] Other Start: 09-04-2021 Telephone encounter Jeane Higuera [facility] Start: 09-04-2021 Registered Recurring DO Sena Smiley Work Phone: [facility] Start: 08-04-2021 End: 08-04-2021 ambulatory Jeanealfredo Rogelt Other [employer] Other Start: 08-04-2021 Telephone encounter Jeane Dykes [facility] Start: 07-28-2021 Patient encounter procedure Nadir Hoskins DO Work Phone: [facility] DO Work Phone: Start: 07-17-2021 ([facility] R A/c) [facility] Repeat A/C Jeane Dykes [facility] Start: 07-17-2021 End: 07-17-2021 ambulatory Jeane Fitt Other [employer] Other Start: 06-30-2021 ([facility] R A/c) [facility] Repeat A/C Jeane Juan [facility] Start: 06-30-2021 End: 06-30-2021 ambulatory Jeane Fitt Other [employer] Other Start: 06-20-2021 Telephone encounter Jeanealfredo Higuera [facility] Start: 06-09-2021 ([facility] R A/c) [facility] Repeat A/C Jeane Juan [facility] Start: 11-23-2020 End: 11-25-2020 Evaluation and management of inpatient Darian Itzkowitz -[facility] [place] [facility] Start: 09-17-2020 Registered Recurring Darianrakesh Cantor [facility] Start: 08-16-2020 End: 08-17-2020 Evaluation and management of inpatient Darian Itzkowitz -[facility] Start: 08-05-2020 Registered Recurring Darian Devaughn tz -[place] [facility] Start: 07-26-2020 End: 07-26-2020 Emergency department patient visit Darian Itzkowitz -Emergency Room Start: 07-22-2020 End: 07-22-2020 Emergency department patient visit Darian Itzkowitz -Emergency Room Start: 07-19-2020 End: 07-19-2020 Emergency department patient visit Darian Itzkowitz -Emergency Room Start: 06-15-2020 End: 06-15-2020 Evaluation and management of inpatient Darian Itzkowitz -4 [place] [facility] Start: 06-05-2020 End: 06-07-2020 Evaluation and management of inpatient Darian Itzkowitz -[facility] [place] [facility] Start: 11-08-2019 ambulatory UNKNOWN PROVIDER Facili ty:[facility] Start: 10-12-2018 End: 10-12-2018 Patient encounter procedure MARGARETH MAYRA Facility:[facility] Start: 10-07-2018 Patient encounter procedure JAMEEL VALENZUELA Facility:[id number] Start: 08-04-2018 End: 08-05-2018 Patient encounter procedure MARGARETH MAYRA Facility:[facility] Start: 08-02-2018 Patient encounter procedure SETH VASQUEZ Facility:[id number] Start: 06-27-2018 End: 07-01-2018 Evaluation and management of inpatient MARGARETH MAYRA Facility:[facility] Start: 05-12-2018 End: 05-12-2018 Patient encounter procedure MARGARETH MAYRA Facility:[facility] Start: 11-29-2003 Evaluation and management of inpatient Darian Itzkowitz -[facility] Patient encounter status No PCP None -[facility] [facility] DO Work Phone: Procedures Date Procedure [...] MG FOR LOW K Azalea Mera Trell FUTURES TRADER - PATENT ENGINEER Work Phone: Start: 10-07-2023 Prothrombin time Swapnil Brand MD Work Phone: Start: 10-06-2023 Potassium serum plasma/whole blood Feliz Brand MD Work Phone: Start: 10-06-2023 BASIC METABOLIC PANEL W/ REFLEX TO MG FOR LOW K Swapnil Brand MD Work Phone: Start: 10-06-2023 Prothrombin time Azalea Mera Trell FUTURES TRADER - PATENT ENGINEER Work Phone: Start: 10-06-2023 Intermittent pulse oximetry Azalea Mera Trell FUTURES TRADER - [facility] Work Phone: Start: 10-05-2023 Assay of [...] Phone: Start: 10-05-2023 Assay of ethanol Noman Golver MD Work Phone: Start: 10-05-2023 Comprehensive metabolic panel Noman rowe MD Work Phone: Start: 10-05-2023 SURGICAL PATHOLOGY REPORT Noman kraus MD Work Phone: Start: 10-05-2023 Ecg routine ecg w/least 12 lds w/i&r Noman Glover MD Work Phone: Start: 09-29-2023 Electrophysiology study Jameel Valenzulea FUTURES TRADER-PATENT ENGINEER Work Phone: Start: 09-29-2023 Ecg routine ecg w/least 12 lds trcg only w/o i&r Yessi Miller FUTURES TRADER-PATENT ENGINEER Work Phone: Start: 09-29-2023 Basic metabolic panel calcium total Yessi Miller FUTURES TRADER-PATENT ENGINEER Work Phone: Start: 09-29-2023 EXTRA TUBES Margareth [...] A and B virus antigen assay [facility] Work Phone: Start: 10-13-2021 CT of abdomen and pelvis without contrast DO [facility] Work Phone: Start: 10-13-2021 Plain chest X-ray [facility] Work Phone: Start: 11-25-2020 Esophagogastroduodenoscopy Darian dietz Start: 11-24-2020 End: 11-24-2020 Screening for occult blood in feces Darian Itnehalkoj luis Start: 11-23-2020 Plain chest X-ray Darian Itzkowitz Start: 11-23-2020 SARS Antigen (LFIA) Darian Itzkowitz Start: 11-23-2020 Urine culture Darian Itnehalkoj luis [...] Itzkowitz Start: 07-22-2020 SARS Antigen (LFIA) Darian Itabdifatahwitz Start: 07-19-2020 Urine culture Darian Itantonietatz Start: 07-19-2020 Plain chest X-ray Darian Itzkowitz [...] (3 - PPSV23 if available, else PCV20) [facility] Start: 2034 PNEUMOCOCCAL (3 - PPSV23 or PCV20) PNEUMOCOCCAL (3 - PPSV23 or PCV20) [facility] Start: 2034 Pneumococcal vaccination [facility] Start: 2034 Pneumococcal Vaccine: Pediatrics (0 to 5 Years) and At-Risk Patients (6 to 64 Years) (3 - PPSV23 or PCV20) Pneumococcal Vaccine: Pediatrics (0 to 5 Years) and At-Risk Patients (6 to 64 Years) (3 - PPSV23 or PCV20) [facility] Start: 08-17-2025 Lipid 1996 panel - Serum or Plasma Lipid Screening [facility] Start: 08-17-2025 LIPID SCREEN LIPID SCREEN [facility] Start: 09-29-2024 Creatinine measurement Creatinine Level [facility] Start: 09-29-2024 Potassium measurement Potassium Level [facility] Start: 08-30-2024 Cholesterol [Mass/volume] in Serum or Plasma Cholesterol [facility] Start: 04-13-2024 [facility] Start: 04-12-2024 [facility] Start: 04-11-2024 [facility] Start: 04-10-2024 [facility] Start: 04-09-2024 [facility] Start: 04-08-2024 [facility] Start: 04-07-2024 [facility] Start: 04-06-2024 [facility] Start: 04-05-2024 [facility] Start: 04-04-2024 [facility] Start: 04-03-2024 [facility] Start: 04-02-2024 [facility] Start: 04-01-2024 [facility] Start: 03-31-2024 [facility] Start: 03-30-2024 Bacteria identified in Urine by Culture [facility] Start: 03-30-2024 End: 03-30-2024 [facility] Start: 03-30-2024 Referral to Special Education Administrator [facility] Start: 03-30-2024 Referral to turbine engine assembler [facility] Start: 03-30-2024 Hospital admission [facility] Start: 03-29-2024 Plain chest X-ray XR chest 2V* [facility] Start: 03-29-2024 XR Chest 2 Views [facility] Start: 03-29-2024 End: 03-29-2024 Patient encounter procedure 03/29/2024 8:30 AM EDT Office Visit [facility] [address] [facility] [address] [place] [id number] Jameel Valenzuela E, FUTURES TRADER-PATENT ENGINEER [address] [facility] [address] [place] [address] [facility] Start: 03-19-2024 DIABETES SCREEN DIABETES SCREEN [facility] Start: 03-19-2024 Diabetes Screening Diabetes Screening [facility] Start: 02-22-2024 Patient referral [facility] Work Phone: Start: 01-24-2024 Plain chest X-ray XR chest 1V portable [facility] Start: 01-24-2024 XR Chest Single view [facility] Start: 10-22-2023 End: 10-22-2023 Patient encounter procedure 10/22/2023 9:30 AM EST Office Visit [facility] [address] [place] [id number] Swapnil Brand MD [address] [place] [address] new pat/ hosp f/u [facility] Comment on above: new pat/ hosp f/u Start: 10-18-2023 End: 10-18-2023 Patient encounter procedure 10/18/2023 2:50 PM EST Appointment [facility] Medication Management [address] [place] [address] INR- new Lovenox (CPA 10/06/24 Tracey) [facility] Comment on above: INR- new Lovenox (CPA 10/06/24 Tracey) Start: 10-13-2023 End: 10-06-2024 Basic metabolic 2000 panel - Serum or Plasma Basic Metabolic Panel Lab Routine Hypokalemia Expected: 10/13/2023, Expires: 10/06/2024 [facility] Comment on above: Expected: 10/13/2023, Expires: Start: 10-13-2023 End: 10-06-2024 CBC panel - Blood by Automated count CBC Lab Routine Dizziness Expected: 10/13/2023, Expires: 10/06/2024 [facility] Comment on above: Expected: 10/13/2023, Expires: Start: 10-13-2023 End: 10-13-2023 Patient encounter procedure 10/13/2023 11:00 AM EST Office Visit [facility] [address], [address] [place] [address] Ajay Robles, [address] [place] [address] Robles [facility] Comment on above: per Dr. Robles Start: 10-12-2023 End: 10-12-2023 Patient encounter procedure 10/12/2023 3:50 PM EST Appointment [facility] Medication Management [address] [place] [address] INR- new Lovenox (CPA 10/06/24 Tracey) [facility]ication [facility] Comment on above: INR- new Lovenox (CPA 10/06/24 Tracey) Start: 10-08-2023 End: 10-08-2023 Patient encounter procedure 10/08/2023 10:30 AM EST Appointment [facility] Medication Management [address] [place] [address] INR- new Lovenox (CPA 10/06/24 Tracey) [facility] Medication [facility] Comment on above: INR- new Lovenox (CPA 10/06/24 Tracey) Start: 10-06-2023 End: 10-06-2023 Clinical Support 10/06/2023 8:30 AM EST Clinical Support [facility] [address] [place] [phone] [facility] Start: 09-29-2023 End: 09-29-2023 Admission to same day surgery center 09/29/2023 2:00 PM EST - 09/29/2023 4:00 PM EST Surgery [facility] [address] [place] [facility] [address] Margareth Nunez MD [address] [facility] Medical [facility] [address] [place] [address] ICD BIV Generator Change Out [51897 (CPT )] [facility] Comment on above: ICD BIV Generator Change Out [94368 (CPT )] Start: 09-29-2023 Subsequent hospital visit by physician 09/29/2023 2:00 PM EST Hospital Encounter [facility] [address] [place] [address] [facility] [address] Margareth Nunez MD [address] [facility] [address] [place] [address] Biventricular implantable cardioverter-defibrilla tor (ICD) in situ; Elective replacement of implantable cardioverter-defibrilla tor (ICD) battery required [facility] Comment on above: Biventricular implantable cardioverter-d efibrillator (ICD) in situ; Elective replacement of implantable cardioverter-defibrillator (ICD) battery required Start: 09-09-2023 End: 12-09-2023 Basic metabolic 2000 panel - Serum or Plasma BASIC METABOLIC PNL Lab Routine Persistent atrial fibrillation (HCC) Expected: 09/09/2023 (Approximate), Expires: 12/09/2023 [facility] Work Phone: Comment on above: Expected: 09/09/2023 (Approximate), Expi res: 12/09/2023 Start: 09-09-2023 End: 12-09-2023 CBC panel - Blood by Automated count CBC Lab Routine Persistent atrial fibrillation (HCC) Expected: 09/09/2023 (Approximate), Expires: 12/09/2023 [facility] Work Phone: Comment on above: Expected: 09/09/2023 (Approximate), Expi res: 12/09/2023 Start: 09-09-2023 End: 12-09-2023 CONFIRM BLOOD TYPE CONFIRM BLOOD TYPE Blood Bank Routine Persistent atrial fibrillation (HCC) Expected: 09/09/2023 (Approximate), Expires: 12/09/2023 [facility] Work Phone: Comment on above: Expected: 09/09/2023 (Approximate), Expi res: 12/09/2023 Start: 09-09-2023 End: 12-09-2023 TYPE AND SCREEN,30 DAY TYPE AND SCREEN,30 DAY Blood Bank Routine Persistent atrial fibrillation (HCC) Expected: 09/09/2023 (Approximate), Expires: 12/09/2023 [facility] Work Phone: Comment on above: Expected: 09/09/2023 (Approximate), Expi res: 12/09/2023 Start: 08-30-2023 Annual Wellness Visit (Medicare Advantage) Annual Wellness Visit (Medicare Advantage) [facility] Start: 04-30-2023 Covid-19 Vaccine ( season) Covid-19 Vaccine ( season) [facility] Start: 04-30-2023 Influenza vaccination [facility] Start: 03-30-2023 Influenza vaccination Flu vaccine (#1) [facility] Start: 03-15-2023 FUV, Provider: Margareth Nunez, Status: Pen, Time: 1:40 PM FUV, Provider: Margareth Nunez, Status: Pen, Time: 1:40 PM -[facility] 250 DO Work Phone: Start: 11-14-2022 Echocardiography [facility] Start: 10-27-2022 FUV, Provider: Margareth Nunez, Status: Pen, Time: 3:00 PM FUV, Provider: Margareth Nunez, Status: Pen, Time: 3:00 PM -[facility] [address] DO Work Phone: Start: 05-30-2022 Influenza vaccination Influenza Vaccine (#1) [facility] Start: 05-25-2022 FUV, Provider: Inna Jesus, Status: Pen, Time: 1:30 PM FUV, Provider: Inna Jesus, Status: Pen, Time: 1:30 PM -[facility] [facility] DO Work Phone: Start: 05-20-2022 BP CONTROLLED (<130/80) BP CONTROLLED (<130/80) [facility] Start: 04-30-2022 Influenza vaccination [facility] Start: 04-24-2022 FUV, Provider: Margareth Nunez, Status: Pen, Time: 1:20 PM FUV, Provider: Margareth Nunez, Status: Pen, Time: 1:20 PM -[facility] [address] [place] Work Phone: Start: 04-15-2022 FUV, Provider: Inna Jesus, Status: Pen, Time: 4:00 PM FUV, Provider: Inna Jesus, Status: Pen, Time: 4:00 PM -[facility] [facility] DO Work Phone: Start: 03-25-2022 FUV, Provider: Inna Jesus, Status: Pen, Time: 8:00 AM FUV, Provider: Inna Jesus, Status: Pen, Time: 8:00 AM -[facility] DO Work Phone: Start: 03-12-2022 Diabetes mellitus screening Diabetes Screening [facility] Start: 02-23-2022 FUV, Provider: Inna Jesus, Status: Pen, Time: 8:00 AM FUV, Provider: Inna Jesus, Status: Pen, Time: 8:00 AM -[facility] DO Work Phone: Start: 01-21-2022 [facility], Provider: Margareth Nunez, Status: Pen, Time: 9:00 AM [facility], Provider: Margareth Nunez, Status: Pen, Time: 9:00 AM -[facility] [address] DO Work Phone: Start: 01-20-2022 [facility], Provider: Soco Bhardwaj, Status: Pen, Time: 8:00 AM [facility], Provider: Soco Bhardwaj, Status: Pen, Time: 8:00 AM -[facility] [place] [address] DO Work Phone: Start: 12-31-2021 EP ABLAT, Provider: [facility] HYBRID TESTER [id number], Status: Pen, Time: 11:00 AM EP ABLAT, Provider: [facility] HYBRID TESTER [id number], Status: Pen, Time: 11:00 AM -[facility] [place] [address] DO Work Phone: Start: 12-31-2021 [facility], Provider: Soco Bhardwaj, Status: Pen, Time: 11:00 AM [facility], Provider: oSco Bhardwaj, Status: Pen, Time: 11:00 AM -[facility] [address] DO Work Phone: Start: 12-31-2021 [facility], Provider: Margareth Nunez, Status: Pen, Time: 8:00 AM [facility], Provider: Margareth Nunez, Status: Pen, Time: 8:00 AM -[facility] [address] DO Work Phone: Start: 12-31-2021 JOVITA, Provider: [facility] HYBRID TESTER [id number], Status: Pen, Time: 8:00 AM JOVITA, Provider: [facility] HYBRID TESTER 1,[id number], Status: Pen, Time: 8:00 AM -[facility] [address] DO Work Phone: Start: 11-19-2021 FUV, Provider: Nadir Hoskins, Status: Pen, Time: 9:20 AM FUV, Provider: Nadir Hoskins, Status: Pen, Time: 9:20 AM -[facility] DO Work Phone: Start: 10-29-2021 FUV, Provider: Inna Jesus, Status: Pen, Time: 2:30 PM FUV, Provider: Inna Jesus, Status: Pen, Time: 2:30 PM -[facility] DO Work Phone: Start: 10-13-2021 Bacteria identified in Blood by Culture Blood Culture [facility] Start: 10-13-2021 Bacteria identified in Urine by Culture Urine Culture [facility] Start: 08-17-2021 Hepatitis B surface antibody level LDL CHOLESTEROL [facility] Start: 05-11-2021 COVID-19 VACCINE (3 - Booster for Pfizer series) COVID-19 VACCINE (3 - Booster for Pfizer series) [facility] Start: 02-03-2021 COVID-19 VACCINE (3 - Booster for Pfizer series) COVID-19 VACCINE (3 - Booster for Pfizer series) [facility] Start: 02-03-2021 COVID-19 VACCINE (3 - Pfizer series) COVID-19 VACCINE (3 - Pfizer series) [facility] Start: 2019 Measurement of occult blood in single stool specimen [facility] Start: 2019 Screening for malignant neoplasm of breast Breast cancer screen [facility] Start: 2019 Screening for malignant neoplasm of colon CRC Screening [facility] Start: 2019 Shingles (RZV) Vaccine (1 of 2) Shingles (RZV) Vaccine (1 of 2) [facility] Start: 2019 Shingles vaccine (1 of 2) Shingles vaccine (1 of 2) [facility] Start: 2019 SHINGRIX VACCINE (1 of 2) SHINGRIX VACCINE (1 of 2) [facility] Start: 2019 Zoster Vaccines (1 of 2) Zoster Vaccines (1 of 2) [facility] Start: 2014 COLOGUARD (FIT-DNA) COLOGUARD (FIT-DNA) [facility] Start: 2014 Colonoscopy COLONOSCOPY [facility] Start: 2014 COLORECTAL CANCER SCREENING COLORECTAL CANCER SCREENING [facility] Start: [address] COLONOGRAPHY [facility] Start: 2014 FECAL OCCULT BLOOD FECAL OCCULT BLOOD [facility] Start: 2014 Screening for malignant neoplasm of colon [facility] Start: 2014 SIGMOIDOSCOPY SIGMOIDOSCOPY [facility] Start: 02-06-2013 DTaP/Tdap/Td vaccine (1 - Tdap) DTaP/Tdap/Td vaccine (1 - Tdap) [facility] Start: 02-06-2013 DTaP/Tdap/Td Vaccines (1 - Tdap) DTaP/Tdap/Td Vaccines (1 - Tdap) [facility] Start: 02-06-2013 Urine microalbumin profile [facility] Start: 2009 Mammography [facility] Start: 2009 Screening for malignant neoplasm of breast [facility] Start: 1999 HPV TESTING HPV TESTING [facility] Start: 1999 Screening for malignant neoplasm of cervix [facility] Start: 1990 PAP TESTING PAP TESTING [facility] Start: 1990 Screening for malignant neoplasm of cervix [facility] Start: 1988 DTaP/Tdap/Td vaccine (1 - Tdap) DTaP/Tdap/Td vaccine (1 - Tdap) [facility] Start: 1987 ANNUAL PCP TEAM CHRONIC DISEASE VISIT ANNUAL PCP TEAM CHRONIC DISEASE VISIT [facility] Start: 1987 BP CONTROLLED (<130/80) BP CONTROLLED (<130/80) [facility] Start: 1987 HEPATITIS C SCREENING HEPATITIS C SCREENING [facility] Start: 1987 Hepatitis C screening [facility] Start: 1987 HIV SCREENING HIV SCREENING [facility] Start: 1987 SPIROMETRY SPIROMETRY [facility] Start: 1987 Tetanus + diphtheria + acellular pertussis vaccine (product) Tdap [facility] Start: 1984 HIV screening [facility] Start: 1981 Depression Screen Depression Screen [facility] Start: 1979 Lipid panel Lipids [facility] Start: 1970 MMR Vaccines (1 of 1 - Standard series) MMR Vaccines (1 of 1 - Standard series) [facility] Start: 01-09-1970 COVID-19 Vaccine (#1) COVID-19 Vaccine (#1) [facility] Start: 1969 Creatinine measurement Creatinine Level [facility] Start: 1969 Ejection Fraction Ejection Fraction [facility] Start: 1969 HEPATITIS B (1 of 3 - 3-dose series) HEPATITIS B (1 of 3 - 3-dose series) [facility] Start: 1969 Hepatitis B Vaccine (1 of 3 - 3-dose series) Hepatitis B Vaccine (1 of 3 - 3-dose series) [facility] Start: 1969 Hepatitis B Vaccines (1 of 3 - 3-dose series) Hepatitis B Vaccines (1 of 3 - 3-dose series) [facility] Start: 1969 HIV screening HIV Screening [facility] Start: 1969 Lipid panel Lipid Panel [facility] Start: 1969 Medicare Annual Wellness Visit Medicare Annual Wellness Visit (AWV) [facility] Start: 1969 Potassium measurement Potassium Level [facility] Start: 1969 [facility] Start: 1969 Thyroid stimulating hormone measurement TSH Level [facility] Anion gap measurement [facility] aPTT in Platelet poo r plasma by Coagulation assay [facility] Bacteria identified in Blood by Culture [facility] Bacteria identified in Urine by Culture [facility] End: 10-08-2023 Basic Metabolic Panel w/ Reflex to MG Basic Metabolic Panel w/ Reflex to MG Lab Routine Daily for 3 Days starting 10/06/2023 until 10/08/2023, 1 completed [employer] Comment on above: Daily for 3 Days starting 10/06/2023 unt il 10/08/2023, 1 completed Basophil count [facility] [facility] Basophil percent differential count [facility] Basophils [#/volume] in Blood by Automated count [facility] Basophils/100 leukoc ytes in Blood by Automated count [facility] Calcium [Mass/volume ] in Serum or Plasma [facility] Calculated LDL cholesterol level [facility] Carbon dioxide, tota l [Moles/volume] in Serum or Plasma [facility] Cardiac Device Check - In Clinic Cardiac Device Check - In Clinic Implantable Cardiac Device Routine ICD (implantable cardioverter-defibrilla tor) battery depletion 09/02/2023 1:53 PM EST [facility] Service Area Work Phone: End: 10-08-2023 CBC W Auto Differential panel - Blood CBC with auto differential Lab Routine Daily for 3 Days starting 10/06/2023 until 10/08/2023, 2 completed [employer] Comment on above: Daily for 3 Days starting 10/06/2023 unt il 10/08/2023, 2 completed Chloride [Moles/volu me] in Serum or Plasma [facility] Cholesterol.total/Ch olest christine in HDL [Mass Ratio] in Serum or Plasma [facility] End: 10-06-2023 Clostridium Difficile Toxin/Antigen Clostridium Difficile Toxin/Antigen Microbiology Routine 36 Hours Expiring for 36 Hours starting 10/06/2023 until 10/06/2023 [employer] Comment on above: 36 Hours Expiring for 36 Hours starting 10/06/2023 until 10/06/2023 Creatinine and Glome rular filtration rate.predicted panel - Serum, Plasma or Blood [facility] ECG 12 lead STAT ECG 12 lead STA T ECG STAT 09/29/2023 7:03 AM EST [facility] Service Area Work Phone: Eosinophil percent differential count [facility] Eosinophils [#/volum e] in Blood [facility] Eosinophils/100 leukocytes in Blood by Automated count [facility] Erythrocyte distribu tion width [Ratio] by Automated count [facility] Erythrocyte mean corpuscular volume determination [facility] Erythrocytes [#/volu me] in Blood [facility] Erythrocytes [#/volu me] in Blood [facility] Glucose [Mass/volume ] in Serum or Plasma [facility] Hematocrit [Volume Fraction] of Blood [facility] Hematocrit [Volume Fraction] of Blood [facility] Hemoglobin [Mass/vol ume] in Blood [facility] Hemoglobin [Mass/vol ume] in Blood [facility] Hemoglobin distribut ion, width determination [facility] ICD BIV GENERATOR CH GERTRUDIS OUT ICD BIV GENERATOR CHANGE OUT Biventricular implantable cardioverter-defibrilla tor (ICD) in situ Elective replacement of implantable cardioverter-defibrilla tor (ICD) battery required [facility] Work Phone: INR in Platelet poor plasma by Coagulation assay [facility] Leukocytes [#/volume ] corrected for nucleated erythrocytes in Blood by Automated coun [facility] Leukocytes [#/volume ] in Blood [facility] Leukocytes [#/volume ] in Blood [facility] Lymphocyte count [facility] Lymphocyte percent differential count [facility] Lymphocytes [#/volum e] in Blood by Automated count [facility] Lymphocytes/100 leukocytes in Blood by Automated count [facility] Magnesium measurement [facility] MCH [Entitic mass] b y Automated count [facility] MCHC [Mass/volume] b y Automated count [facility] MCV [Entitic volume] by Automated count [facility] Mean corpuscular hemoglobin concentration determination [facility] Mean corpuscular hemoglobin determination [facility] Measurement of renal function [facility] Monocyte count [facility] Monocyte percent differential count [facility] Monocytes [#/volume] in Blood by Automated count [facility] Monocytes/100 leukoc ytes in Blood by Automated count [facility] Neutrophil count [facility] Neutrophil percent differential count [facility] Neutrophils [#/volum e] in Blood by Automated count [facility] Neutrophils/100 leukocytes in Blood by Automated count [facility] Nucleated erythrocyt es [Presence] in Blood by Automated count [facility] Oxygen therapy [Mini mum Data Set] Initiate Oxygen Therapy Protocol Respiratory Care Routine Daily until discontinued starting 10/06/2023 [employer] Comment on above: Daily until discontinued starting 2023 Patient Education [facility] Patient referral [facility] Platelet mean volume [Entitic volume] in Blood by Automated count [facility] Platelet mean volume determination [facility] Platelets [#/volume] in Blood [facility] Platelets [#/volume] in Blood [facility] Potassium [Moles/vol ume] in Serum or Plasma [facility] End: 10-20-2023 Protime-INR Protime-INR Lab Routine Daily for 2 Weeks starting 10/07/2023 until 10/20/2023, 1 completed [employer] Comment on above: Daily for 2 Weeks starting 10/07/2023 un til 10/20/2023, 1 completed End: 09-07-2024 Radiologic exam chest 2 views XR CHEST 2V FRONTAL/LAT Radiology Routine Persistent atrial fibrillation (HCC) 1 Occurrences starting 08/09/2023 until 09/07/2024 [facility] Work Phone: Comment on above: 1 Occurrences starting 08/09/2023 until 09/07/2024 Sodium [Moles/volume ] in Serum or Plasma [facility] End: 10-06-2023 SPECIMEN REJECTION [facility] [email or web address] Comment on above: Once for 1 Occurrences starting 10/06/19 24 until 10/06/2023 Urea nitrogen [Mass/volume] in Serum or Plasma [facility] VLDL cholesterol measurement [facility] XR Humerus - right Views [facility] XR Shoulder - right Views [facility] Immunizations Immunization Date Immunization Notes Care Provider Sherif bailey 12-09-2020 Pfizer-BioNTech COVID-19 Vacc 30 MCG/0.3ML Intramuscular Suspension Nadir Hoskins DO Work Phone: [facility] 11-18-2020 COVID-19 vaccine, ag e 12+ yr ([employer] David Osei MD Work Phone: [facility] 06-09-2020 pneumococcal polysaccharide vaccine, 23 valent David Osei MD Work Phone: [facility] 06-07-2020 influenza, seasonal, injectable David Osei MD Work Phone: [facility] 06-07-2020 influenza virus vaccine, unspecified formulation David Osei MD Work Phone: [facility] 06-06-2020 influenza, injectabl e, quadrivalent, preservative free Darian Itzkowinate [facility] 06-06-2020 influenza virus vaccine, unspecified formulation Anju Mason MILLER Work Phone: [facility] 08-31-2019 Influenza, injectabl e, Madin Denise Canine Kidney, preservative free, quadrivalent Darian Itzkoinnate [facility] 08-30-2019 influenza virus vaccine, unspecified formulation Nadir Hoskins DO [facility] Phone[facility] Work Phone: 06-29-2018 influenza, injectabl e, quadrivalent, preservative free David Osei MD Work Phone: [facility] 06-27-2018 influenza virus vaccine, unspecified formulation Nadir Hoskins DO Work Phone: [facility] 250 DO Work Phone: 06-17-2018 influenza, injectabl e, quadrivalent, preservative free Jeane Dykes Other [facility] 05-10-2017 influenza, seasonal, injectable, preservative free David Osei MD Work Phone: [facility] 05-03-2017 influenza, injectabl e, quadrivalent, preservative free David Osei MD Work Phone: [facility] 04-30-2017 influenza virus vaccine, unspecified formulation Nadir Hoskins DO Work Phone: [facility] 250 DO Work Phone: 05-08-2016 pneumococcal conjuga te vaccine, 13 valent David Osei MD Work Phone: [facility] 04-30-2016 influenza virus vaccine, unspecified formulation Nadir Hoskins DO Work Phone: [facility] 250 DO Work Phone: 04-30-2016 pneumococcal conjuga te vaccine, 7 valent Nadir Hoskins DO Work Phone: [facility] 250 DO Work Phone: 04-24-2016 influenza, seasonal, injectable, preservative free David Osei MD Work Phone: [facility] 05-30-2015 influenza virus vaccine, unspecified formulation Nadir Hoskins DO Work Phone: [facility] 250 DO Work Phone: 09-18-2013 influenza virus vaccine, unspecified formulation Nadir Hoskins DO Work Phone: [facility] 250 DO Work Phone: 02-05-2013 TD(adult) unspecifie d formulation David Osei MD Work Phone: [facility] 02-05-2013 Td, unspecified formulation Marcelo Champagne [facility] Work Phone: [facility] 08-30-2011 pneumococcal polysaccharide vaccine, 23 valent Nadir Hoskins DO Work Phone: [facility] 250 DO Work Phone: influenza virus vaccine, unspecified formulation Nadir Hoskins DO [facility] Phone: [facility] Work Phone: Comment on above: 2008 2009 2010 2011 2012 pneumococcal polysaccharide vaccine, 23 valent Nadir Hoskins DO Work Phone: [facility] Work Phone: Comment on above: 2008 Payers Date Payer Category Payer Private Health Insurance [facility] DUAL COMPLETE [facility] DUAL COMPLETE [id number] 2023-Present [address] [address] [place] [address] [id number] 2023 Self-pay [id number] 2020 Medicare [facility] MEDICARE [facility] DUAL COMPLETE HMO SNP [id number] 2020-Present [phone] [address] [place] [address] Medicare [id number] 2020 Medicare [id number]. [id number] 2020 Medicaid MEDICAID [facility] MEDICAID [id number] 2020-Present [phone] [address] [place] [address] Medicaid [id number] 2017 Private Health Insurance [id number] 2017 Unknown [id number] 2003 Medicaid [id number]. [id number]. [id number] 1969 Unknown [id number] 2.16.840.1.651663.3.579.2. 355 1969 Unknown [id number] 2.16.840.1.376064.3.579.2. 355 1969 Unknown [id number] 2.16.840.1.049797.3.579.2. 355 1969 Unknown [id number] 2.16.840.1.630365.3.579.2. 355 1969 Unknown [id number] 2.16.840.1.216435.3.579.2. 355 1969 Unknown [id number] 2.16.840.1.511296.3.579.2. 355 1969 Unknown [id number] 2.16.840.1.052062.3.579.2. 732 1969 Unknown [id number] 2.16.840.1.456601.3.579.2. 593 1969 Unknown [id number] 2.16.840.1.171886.3.579.2. 593 1969 Unknown [id number] 2.16.840.1.859697.3.579.2. 593 1969 Unknown [id number] 2.16.840.1.294230.3.579.2. 593 1969 Unknown [id number] 2.16.840.1.492569.3.579.2. 593 1969 Unknown [id number] 2.16.840.1.091934.3.579.2. 593 1969 Unknown [id number] 2.16.840.1.132941.3.579.2. 593 1969 Unknown [id number] 2.16.840.1.400085.3.579.2. 593 1969 Unknown [id number] 2.16.840.1.007833.3.579.2. 593 1969 Unknown [id number] 2.16.840.1.685907.3.579.2. 593 1969 Unknown [id number] 2.16.840.1.902705.3.579.2. 593 1969 Unknown [id number] 2.16.840.1.977218.3.579.2. 593 1969 Unknown [id number] 2.16.840.1.320710.3.579.2. 593 1969 Unknown [id number] 2.16.840.1.637605.3.579.2. 593 1969 Unknown [id number] 2.16.840.1.326879.3.579.2. 593 1969 Unknown [id number] 2.16.840.1.836286.3.579.2. 593 1969 Unknown [id number] 2.16.840.1.866465.3.579.2. 593 1969 Unknown [id number] 2.16.840.1.033905.3.579.2. 356 1969 Unknown [id number] 2.16.840.1.696217.3.579.2. 727 1969 Unknown [id number] 2.16.840.1.806302.3.579.2. 727 1969 Unknown [id number] 2.16.840.1.850194.3.579.2. 727 1969 Unknown [id number] 2.16.840.1.647521.3.579.2. 727 1969 Unknown [id number] 2.16.840.1.063471.3.579.2. 176 1969 Unknown [id number] 2.16.840.1.399626.3.579.2. 176 1969 Unknown [id number] 2.16.840.1.885673.3.579.2. 176 1969 Unknown [id number] 2.16.840.1.382784.3.579.2. 175 1969 Unknown [id number] 2.16.840.1.362870.3.579.2. 1244 1969 Unknown [id number] 2.16.840.1.395314.3.579.2. 1244 1969 Unknown [id number] 2.16.840.1.289854.3.579.2. 1246 1969 Unknown [id number] 2.16.840.1.459173.3.579.2. 1246 1969 Unknown [id number] 2.16.840.1.679821.3.579.2. 1246 1969 Unknown [id number] 2.16.840.1.084551.3.579.2. 1246 1959 Medicaid [id number] Medicare [id number] Medicare [id number] Medicare Medicare [id number] Private Health Insurance [employer] MCR PFFS 1 [id number] Private Health Insurance [facility] e CORNELIO [id number] Unknown [id number] Unknown Unknown [id number] 2.16.840.1.162104.3.579.2. 531 Unknown [id number] 2..840.1.215721.3.579.2. 531 Unknown [id number] 2..840.1.334582.3.579.2. 531 Social History Date Type Detail Facility Start: 08-16-2020 End: 03-30-2024 Tobacco smoking status WIIS Ex-smoker (finding) [facility] Start: 1970 Sex Assigned At Female F [facility] Start: 05-20-2021 End: 10-06-2023 No illicit drug use No illicit drug use [facility] Work Phone: Comment on above: QUIT 02/2018; QUIT 02/2018 had res tarted then requit 08/2021; Start: 05-20-2021 End: 09-29-2023 Tobacco smoking status NHIS Smokes tobacco daily [facility] Start: 10-07-2006 End: 08-30-2021 History of tobacco use Cigarette Smoker [facility] Start: 05-20-2021 End: 10-06-2023 Tobacco use and exposure Smokeless tobacco non-user [facility] Start: 05-20-2021 End: 09-29-2023 Alcohol intake Ex-drinker (finding) [facility] Start: 06-17-2020 History SDOH Financial 5 [facility] Start: 06-17-2020 History SDOH Food Worry 1 [facility] Start: 06-17-2020 History SDOH Transport Med 2 [facility] Start: 02-24-2012 Tobacco Comment 5 cigarettes a day C [facility] Start: 1970 Sex Assigned At Not on file C [facility] Start: 12-28-2021 End: 01-07-2022 Exposure to SARS-CoV-2 (event) Unable to assess [facility] Start: 05-20-2021 End: 10-06-2023 Sex Assigned At [facility] Work Phone: Start: 10-13-2021 End: 11-11-2023 Tobacco smoking status NHIS Smoker (finding) [facility] Start: 10-13-2021 Alcohol intake Current non-dr scientific publications editor of alcohol (finding) [facility] How hard is it for you to pay for the very basics like food, housing, medical care, and heating Not hard at all [facility] Work Phone: (I/We) worried whether (my/our) food would run out before (I/we) got money to buy more. Never true [facility] Work Phone: Start: 09-02-2023 End: 10-08-2023 Alcohol intake Current drinker of alcohol (finding) [facility] Work Phone: Start: 08-31-2023 Alcohol Comment rare [facility] Work Phone: Start: 08-23-2023 End: 09-29-2023 Exposure to SARS-CoV-2 (event) Not sure [facility] Has the electric, gas, oil, or water company threatened to shut off services in your home in past 12Mo No [facility] [email or web address] Start: 02-05-2013 Alcohol Comment special occasi ons couple drinks [facility] [email or web address] NEGATED: Highlighted row [facility] Medical Equipment Procedure Code Equipment Code Equipment Origin al Text Equipment Identifier Dates [place] Ptfe 1.2 Cm X 10 Cm - [id number] Start: 07-13-2012 Comment on above: Description: pledgets for suture line re inforcement Valve 27mm Therm afix Pericardi - [id number] Start: 07-13-2012 Comment on above: Description: Mitral valve replacement wi th 27 mm Cornell Lang tissue valve Valve Orquidea 3 Commander Lang 26mm Aortic Transcatheter Ultra Low - [id number] Start: 03-17-2021 Defibrillator, Associate Marketing Manager-D, Claria Mri, Surescan, Df1 - [id number] - [id number] Start: 09-29-2023 Goals Date Patient Goal Desired Activity /State Functional Status Date Assessment Result Facility 03-30-2024 Functional status Patient at Baseline [facility] Work Phone: 11-25-2020 Functional status Patient at Baseline [facility] 11-23-2020 Functional status Patient at Baseline [facility] 08-17-2020 Functional status Patient at Baseline [facility] 08-17-2020 Functional status Disability Sta tus Patient at Baseline [facility] 06-15-2020 Functional status Patient at Baseline [facility] 06-05-2020 Functional status Patient at Baseline [facility] Mental Status Date Assessment Result Facility 03-30-2024 Cognitive function Cognitive Sta tus Patient at Baseline [facility] Work Phone: 11-25-2020 Cognitive function Cognitive Sta tus Patient at Baseline [facility] 11-23-2020 Cognitive function Cognitive Sta tus Patient at Baseline [facility] 08-17-2020 Cognitive function Cognitive Sta tus Patient at Baseline [facility] 06-15-2020 Cognitive function Cognitive Sta tus Patient at Baseline [facility] 06-05-2020 Cognitive function Cognitive Sta tus Patient at Baseline [facility] Clinical Notes 06-15-2020 to 03-30-2024 Note Date & Type Note Facility 03-30-2024 Progress note Note Date/Time March 30, 2024 1:38pm [facility] [address] [place], [place] [id number] Progress Note Signed Patient: Essence Vincent MR#: [id number] : 1970 Acct:[id number] Age/Sex: 53 / F Adm Date: 4 Loc: Room: [address] [place] [address] Type: ADM INOo Attending Dr: Patrica Mcmahon [...] <Electronically signed by Patrica Mcmahon MD> 03/30/24 6784 [facility] Work Phone: 1(101) 880-654008-01-2024 History and physical note Author Kendrick Jorgensen [facility] March 30, 2024 3:54am Note Date/Time March 30, 2024 2:3 6am [facility] [address] [place] [address] Hospitalist H&P Signed Patient: Essence Vincent MR#: [id number] : 1970 Acct:[id number] Age/Sex: 53 / F Adm Date: 4 Loc: 3T Room: 4T6110-0 Type: ADM INOo Attending Dr: Kendrick Jorgensen MD Copies to: MD Amanda Quiroga, FUTURES TRADER, PATENT ENGINEER Kristyn Russell, FUTURES TRADER~ HPI DATE OF EXAMINATION: 03/30/24 CHIEF COMPLAINT: palpitations HISTORY OF PRESENT ILLNESS: Ms. Vincent is a 53-year-old female with a PMH of AMI, VT, SVT, AICD placement, mitral valve replacement, A-fib, hypothyroidism, DVT, atrial thrombus, warfarin therapy, CHF presented to the emergency room [facility] for complaints of palpitations. Patient states [...] she has been seeing psychiatry services in [place] for anxiety. Reports she lost her parents [...] behind her left eye, sees neuro at [facility] in [place], Dr. Robles. States they are just watching [...] positive for barbiturates and marijuana-she is on mejtdlausc-gqzgrmrrufpna-qvsvlmcs as needed for headaches. She was medicated with lorazepam, potassium, Nitropaste 1 inch. She will be admitted as observation to the [facility] telemetry floor. Review of Systems Review of Systems Review of systems: A 10 point review of systems was obtained, negative unless noted in the HPI or below. [facility] Medical History (Updated 03/30/24 @ 03:17 by Kristyn Russell APRN) Paroxysmal A-fib Deep vein thrombosis (DVT) Presence of combination internal cardiac defibrillator (ICD) and pacemaker Ventricular tachycardia (08/04/18) Hypotension CHF (congestive heart failure) Atrial thrombus Large clot found in heart at [facility]. COPD (chronic obstructive pulmonary disease) Myocardial [...] breath or wheezing 02/17/24 [History Confirmed 03/30/24] anobdxkafn-sirrlcnamufuq-mcwzhvkj 50 mg-300 mg-40 mg capsule (Fioricet) 1 [...] 00:27 Lymph % (Auto) N/A 03/30/24 00:27 [place] % (Auto) N/A 03/30/24 00:27 Eos % (Auto) N/A 03/30/24 00:27 Baso % (Auto) N/A 03/30/24 00:27 Nucleat RBC Rel Count N/A 03/30/24 00:27 Neut # (Auto) N/A 03/30/24 00:27 Lymph # (Auto) N/A 03/30/24 00:27 [place] # (Auto) N/A 03/30/24 00:27 Eos # (Auto) N/A 03/30/24 00:27 Baso # (Auto) N/A 03/30/24 00:27 Lymphocytes % 13 % (18-42) L 03/30/24 00:27 Monocytes % 5 % (2-11) 03/30/24 00:27 Eosinophils % 2 % (1-3) 03/30/24 00:27 Basophils % 2 % (0-2) 03/30/24 00:27 Myelocytes % 1 % (0-0) H 03/30/24 00:27 Segmented Neutrophils 77 % (50-70) H 03/30/24 00:27 Monocyte Dist Width 16.64 % (0.00-20.00) 03/30/24 00:27 Platelet Estimate Normal (Normal) 03/30/24 00:27 Giant Platelets 5 /100 WBC 03/30/24 00:27 Plt Morphology Comment Normal (Normal) 03/30/24 00:27 RBC Morphology N/A 03/30/24 00:27 Polychromasia Slight 03/30/24 00:27 Hypochromasia Marked 03/30/24 00:27 Poikilocytosis Moderate 03/30/24 00:27 Anisocytosis Marked 03/30/24 00:27 Microcytosis Marked 03/30/24 00:27 Sickle Cells Slight (None Seen) H 03/30/24 00:27 Target Cells Slight 03/30/24 00:27 Tear Drop Cells Slight 03/30/24 00:27 Ovalocytes Slight 03/30/24 00:27 Schistocytes Slight 03/30/24 00:27 PT 12.9 Seconds (9.0-12.9) 03/30/24 00: INR 1.1 03/30/24 00:27 APTT 25.3 Seconds (25.1-36.5) 03/30/24 00:27 PHA Creatinine Clear 58.60 03/30/24 00:27 Sodium 137 mmol/L (136-145) 03/30/24 00:27 Potassium 3.3 mmol/L (3.5-5.1) L 03/30/24 00:27 Chloride 103 mmol/L (98-107) 03/30/24 00:27 Carbon Dioxide 24.9 mmol/L (21.0-31.0) 03/30/24 00: Anion Gap 12.4 mEq/L (6.0-15.0) 03/30/24 00:27 BUN 27 mg/dL (7-25) H 03/30/24 00:27 Creatinine 1.06 mg/dL (0.60-1.20) 03/30/24 00:27 Est GFR (CKD-EPI) > 60.0 mL/Min 03/30/24 00:27 Glucose 126 mg/dL (70-100) H 03/30/24 00:27 Calcium 8.8 mg/dL (8.6-10.3) 03/30/24 00:27 Total Creatine Kinase 93 U/L (30-223) 03/30/24 00:27 Troponin I High Sens 14.0 pg/mL (0.0-15.0) 03/30/24 00:27 B-Natriuretic Peptide 256.0 pg/mL (5-100) H 03/30/24 00:27 Urine Color Light-yellow (Yellow) 03/30/24 02:00 Urine Appearance Clear (Clear) 03/30/24 02:00 Urine pH 6.5 (5.0-9.0) 03/30/24 02:00 Ur Specific Brady 1.016 (1.001-1.030) 03/30/24 02:00 Urine Protein Negative [...] a.m. ? Follows with Dr. Mazariegos in [place] ? Patient reports she takes torsemide daily [...] Signed By: <Electronically signed by PETE Russell> 03/30/244 <Electronically signed by Kendrick Jorgensen MD> 03/30/24 0354 [facility] Work Phone: 1(799) 510-445205-09-2024 NoteDate of Service: 01/04/2024 Procedure: Diagnostic cerebral [...] ([place]) cerebral angiogram --Right common femoral artery (EXTERNAL AUDITOR) angiogram Neurointerventionalist: Pedro Fan MD David: Garry New MD Contrast: 98 cc of [...] with a micropuncture technique, and a 5 [place] intravascular sheath wasplaced within the right common femoral artery, establishing arterial access using modified Seldinger technique. The ultrasound guidance image was not captured and archived in the patient's record. 2000u of heparin IV was administered. A 5 [place] multipurpose catheter was then advanced over a [...] The left internal marquez (more content not included)...[facility]02-13-2024 History of Present illness Narrative* Heydi Jiang, [facility] - 10/12/2023 3:50 PM EST Patient seen [...] Spent (min): 20 Heydi Jiang, PharmD PGY1 [facility] History of Present illness Narrative* Marcelo Champagne RPH - 10/11/2023 1:30 PM EST Patient seen [...] Spent (min): 20 [facility] of Present illness Narrative* Savannah Chang - 10/07/2023 11:37 AM EST Pt does not want Butalbital/APAP/Caffeine 50/325/40 tabs on file at [facility] Outpatient Pharmacy.Pt in need of [...] cell to discuss payment * Marcelo Raman [facility] - 10/07/2023 8:44 AM EST Pharmacy Note [...] inpatient. Marcelo Raman, Josep.Ph. 10/07/2023 8:44 AM * Yvette Alatorre RN [...] - 10/06/2023 2:29 PM EST Pharmacy from [place] [facility] came to floor to give patient a card for an appt on 10/08/23 at 10:30am. Card was given to patient. * Yvette Alatorre RN - 10/06/2023 2:28 PM EST Spoke with Savannah from OP pharmacy they are working on getting Lovenox for discharge as they are lowin stock. She will get back to chief writer. * Yvette Alatorre RN - 10/06/2023 1:18 PM EST Marketing Research Analyst asked patient why she has been off [...] Patient gave herself her Lovenox today with chief writer in room to help educate. Patient did well and is comfortable with self injecting. * Nadir Madrigal [facility] - 10/06/2023 9:53 AM EST Pharmacy Note [...] 1.1 none 7.5 mg Notes: Per [facility] Medication Management office patient POTATO CHIP FRYER dosing was 7.5 mg ONE day per week. All other days are 5 mg. Patient noncompliant with office and has not been seen for 1 year. Office Number [phone] Per aGuri Rey Daily PT/INR while inpatient. Nadir Madrigal, PharmD. [facility] 10/06/2023 9:53 AM * Eddie Farias [facility] - 10/06/2023 4:24 AM EST Pharmacy Note [...] consult. Will continue to follow. * Azalea Cai, PETE - PATENT ENGINEER - 10/05/2023 11:20 PM EST Essence Vincent [...] 10/05/2023 11:20 PM documented in [facility] Note.ICD System pulse generator replacement Procedures: PANCAKE PROFESSIONAL-D generator replacement (80280) Pocket revision with Tyrx pouch, 32642 - 59 (distinct procedure), Defibrillator generator threshold testing 05639, Pre and post ICD analysis and reprogramming 72795 x 2 Patient history: Please refer to [...] of infection. The patient should call the leasing agent immediately if symptoms recur, or for any problems. The patient and family (friend with HIPAA consent) have been instructed accordingly. Follow up in Clinic in 1 week for wound check. See complete procedural log and parameters. [id number] Hospital Discharge instructions* Discharge Instructions* Yessi Don, FUTURES TRADER-PATENT ENGINEER - 09/29/2023 9:39 AM EST Images from [...] have been instructed by the device company data entry representative regarding remote home monitoring. There are [...] your after visit summary documented in this encounterUnPro[facility] Work Phone: 1(417) 189-929001-31-2024 Note* Pre-Sedation Documentation - Margareth Nunez MD - 09/29/2023 7:54 AM EST Sedation Plan ASA 2 Mallampati class: II. Risks, benefits, and alternatives discussed with patient. [facility] Work Phone: 1(837) 944-358201-31-2024 Miscellaneous Notes* Pre-Sedation Documentation - Margareth Nunez MD - 09/29/2023 7:54 AM EST Sedation Plan ASA 2 Mallampati class: II. Risks, benefits, and alternatives discussed with patient. documented in this encounterSelect [facility] Work Phone: 1(791) 362-609401-31-2024 Attending History and physical note* Margareth Nunez MD - 09/29/2023 7:52 AM EST H&P reviewed. The patient was examined and there are no changes to the H&P. She is here for generator change. She has chronic lower extremity edema and exertional dyspnea. Shared decision making performed. Gove decision tool. All questions answered. Econsent obtained. [...] ventricular tachycardia status post ablations through the [facility] with the most recent procedure being [...] recently the device was upgraded to a PANCAKE PROFESSIONAL-D device on September 23, 2016 for the [...] 80 mg tablet 1 tablet, oral, Nightly gxdokmzvko-hjsxdyxbmwtwz-ezfd (Fioricet) 50-300-40 mg capsule 1 capsule, oral, [...] 80 bpm. Prolonged AV conduction with a NC interval of 300 ms. QRS durations 136 [...] per transesophageal echo dated January 21, 2022, [place] Heart Association class III, stage C heart [...] VT ablation procedures at the [facility] and maintained on a combination of amiodarone, metoprolol, and magnesium oxide for ventricular arrhythmia suppression. (Medtronic Viva XT PANCAKE PROFESSIONAL-D). 4. Dyslipidemia on statin. 5. Paroxysmal atrial [...] AV biventricular ICD generator change with Dr. Nunezin 2 weeks once the patient is euvolemic. [...] states that she does follow with a white shoe examiner for her COPD but has not had [...] software was utilized to prepare this document. [facility] Work Phone: 1([phone]) 332-903801-31-2024 History and physical note* Margareth Nunez MD - 09/29/2023 7:52 AM EST H&P reviewed. The patient was examined and there are no changes to the H&P. She is here for generator change. She has chronic lower extremity edema and exertional dyspnea. Shared decision making performed. Gove decision tool. All questions answered. Econsent obtained. [...] ventricular tachycardia status post ablations through the [facility] with the most recent procedure being [...] recently the device was upgraded to a PANCAKE PROFESSIONAL-D device on September 23, 2016 for the [...] 80 mg tablet 1 tablet, oral, Nightly anbycamkaq-rufrxnmmyikmj-pkzo (Fioricet) 50-300-40 mg capsule 1 capsule, oral, [...] 80 bpm. Prolonged AV conduction with a NC interval of 300 ms. QRS durations 136 [...] are within normal limits. JOVITA dated January 21evealed an ejection fraction of 20 to 25%, moderate biatrial enlargement, status post mitral valverepair, severe TR, moderate PFO, plaque in the descending aorta. ASSESSMENT AND PLAN Clinical impressions: 1. Ischemic cardiomyopathy with a left ventricular ejection fraction of 20 to 25% per transesophageal echo dated January 21, 2022, [place] Heart Association class III, stage C heart [...] VT ablation procedures at the [facility] and maintained on a combination of amiodarone, metoprolol, and magnesium oxide for ventricular arrhythmia suppression. (Medtronic Viva XT PANCAKE PROFESSIONAL-D). 4. Dyslipidemia on statin. 5. Paroxysmal atrial [...] AV biventricular ICD generator change with Dr. Nunezin 2 weeks once the patient is euvolemic. [...] implant on all MRI compatible devices. Notify [facility] for signs of infection including fever, chills, [...] states that she does follow with a white shoe examiner for her COPD but has not had [...] to prepare this document. documented in this encounterSelect [facility] Work Phone: 1([phone]) 965-660301-29-2024 Evaluation note* Encounter Date Diagnosis Assessment Notes Treatment Notes Treatment Clinical Notes Aug, Generalized anxiety disorder (ICD-10 - F41.1) [facility] [employer] Other 01-24-2024 Evaluation note* Encounter Date Diagnosis Assessment Notes Treatment Notes Treatment Clinical Notes Aug, Migraine without status migrainosus, not intractable, unspecified migraine type (ICD-10 - G43.909) last filled 07/27/2023 [employer] Other 01-24-2024 Evaluation note* Encounter Date Diagnosis Assessment Notes Treatment Notes Treatment Clinical Notes Aug, Migraine without status migrainosus, not intractable, unspecified migraine type (ICD-10 - G43.909) [employer] Other 01-02-2024 Evaluation note* Encounter Date Diagnosis Assessment Notes Treatment Notes Treatment Clinical Notes Aug, Generalized anxiety disorder (ICD-10 - F41.1) [employer] Other 11-29-2023 Miscellaneous Notes* Telephone Encounter - [...] Epic note, left voicemail. [facility] in [facility]Do[facility] NotePROCEDURE: XR HUMERUS RT MIN 2 [...] Electronically authenticated by: JC BRAVO Date: 2023-01-27 11:03[facility]05-31-2023 NotePROCEDURE: XR HUMERUS RT MIN 2 [...] Electronically authenticated by: JC BRAVO Date: 2023-01-27 11:03[facility]05-25-2022 NotePre-procedure Verification and Time Out: Pre-Procedure [...] Findings: grossly normal anatomy Procedure performed by: ne Facing Slitter(s): none Estimated Blood Loss (mL): none Specimen: [...] of infection. The patient should call the leasing agent immediately if symptoms recur, or for any [...] right interatrial septum sites were mapped with jfrsk-cs-oqlon electroanatomical activation mapping and entrainment mapping from both the right atrial catheter and the ablation catheter. An Kanari mapping system was used to create a 3D image of the right atrium and cavotricuspid isthmus. Mapping was performed during sinus rhythm and atrial pacing. 4. Catheter RF ablation. Applications were delivered via a generator to (more content not included)...[facility]05-25-2022 NoteHistory of Present Illness: /Lactating: Are [...] - Surgical Update < 30 days 21-Jan-2022 12:47[facility]05-25-2022 NoteElectrophysiology Procedure TestingPlease click on the link to view the study images (Normal)[facility] [address] [place] Work Phone: 1(374) 733-135405-25-2022 NoteElectrophysiology Procedure Testing Please click on the link to view the study images (Normal)[facility] [address] DO Work Phone: 1(285) 962-860005-25-2022 NoteHistory & Physical Reviewed: /Lactating: Are You [...] From Patient Profile - Preop v3 21-Jan-2022 10:28[facility]05-25-2022 NoteHistory of Present Illness: Admission Reason: [...] JOVITA/EPS/possible ablation. She is here today at [facility] for these procedures. Patient denies recent [...] Flutter Plan for Impressi (more content not included)...[facility] 12-23-2021 Evaluation note* Encounter Date Diagnosis [...] procedure. A new referral is faxed to NIGEL P[facility]. Seen by Memo Fuchs PharmD [employer] Other 04-20-2022 Evaluation note* Encounter Date Diagnosis Assessment Notes Treatment Notes Treatment Clinical Notes Nov, Medication monitoring encounter (ICD-10 - Z51.81) Referring Provider: Robe Alonso (new re will be Dr. Rojas [phone]) Diagnosis: Thrombus, Atrial Fibrillation INR Goal: 2-3 INR: 1.82 (12/16) Tablet Size: 5mg Wednesday: 5mg Wednesday: 7.5mg [...] referral is faxed to Dr. HARRIET Hoskins [facility]. Called [facility] [phone], spoke with Amanda SUMNER RN. A [facility] Physician is scheduled to see on 12/22 and take her as a patient. [facility] fax number is [phone]. [facility] Order: draw PT/INR on Completed by: Susan Euceda RN [employer] Other 04-13-2022 Evaluation note* Encounter Date Diagnosis Assessment Notes Treatment Notes Treatment Clinical Notes Nov, Medication monitoring encounter (ICD-10 - Z51.81) Referring Provider: Robe Alonso (new re will be Dr. Rojas [phone]) Diagnosis: Thrombus, Atrial Fibrillation INR Goal: 2-3 INR: 1.2 ( 12/09 ) Tablet Size: 5mg Wednesday: 5mg Wednesday: 7.5mg Wednesday: 5mg Wednesday: 7.5mg : 5mg Wednesday: 7.5mg Wednesday: 5mg Total Weekly Dose: 42.5mg [facility] was called, LVM at 8:38 asking [...] Bridge Recommendation is faxed to PCP. Called Vera [phone] to return call. [facility] fax number is [phone]. [facility] Cardiovascular Simulation [facility] Order: draw PT/INR on Completed by: Susan Euceda RN [employer] Other 03-23-2022 Evaluation note* Encounter Date Diagnosis [...] the above instructions. Patient repeated correctly. Called [facility] [phone], rodríguez with instructions. [facility] fax number is [phone]. This Order is faxed. [facility] Cardiovascular Simulation [facility] Order: draw PT/INR on Thursday, November 25, 2021 Completed by: Susan Euceda RN [employer] Other 03-15-2022 Evaluation note* Encounter Date Diagnosis [...] is drinking Boost supplement once daily. Called [facility] [phone], lvm for nurse with Vera Patel. LVM on Amanda's phone. Amanda returned call, discussed the above instructions. [facility] fax number is [phone]. This Order is faxed. [facility] Home Health Order: draw PT/INR on Thursday, November 18, 2021 Completed by: Susan Euceda RN [employer] Other 03-09-2022 Evaluation note* Encounter Date Diagnosis Assessment Notes Treatment Notes Treatment Clinical Notes Oct, Medication monitoring encounter (ICD-10 - Z51.81) Referring Provider: Robe Alonso Diagnosis: Thrombus, Atrial Fibrillation INR Goal: 2-3 INR: 1.11 ([facility] 11/05/21) Tablet Size: 5mg Wednesday: 5mg Wednesday: 7.5mg Wednesday: 5mg Wednesday: 7.5mg : 5mg Wednesday: 7.5mg Wednesday: 5mg Total Weekly Dose: 42.5mg Determing Dose. Boost additional 2.5mg x3 days, 11/05, and then take as indicated above through Wednesday when HH will draw INR. See calendar. Discussion with patient to come in for a face to face appointment for education and developing a safe AC plan. Patient states she will call [facility] after talking to family members for rides. [facility] return call. Addendum: Nurse Adriana SUMNER from [facility] returned call and stated understanding to instructions. Phone for [phone], nurse with Vera. [facility] fax number is [phone] per pt. Home Health Order: draw INR on Thursday, November 11, 2021 Completed by: Susan Euceda RN [employer] Other 03-02-2022 Evaluation note* Encounter Date Diagnosis [...] is made aware of bleeding. [phone]), nurse with Vera. [employer] fax number is [phone] per pt. Home Health Order: draw INR on Completed by: Jeane Dykes, [facility] [employer] Other 02-24-2022 Evaluation note* Encounter Date Diagnosis Assessment Notes Treatment Notes Treatment Clinical Notes Sep, Medication monitoring encounter (ICD-10 - Z51.81) Referring Provider: Robe Alonso Diagnosis: Thrombus, Atrial Fibrillation INR Goal: 2-3 INR: 1.29 ([facility]) Tablet Size: 5mg Wednesday: 5mg Wednesday: 5mg Wednesday: 5mg Wednesday: 5mg : 5mg Wednesday: 5mg Wednesday: 5mg Total Weekly Dose: 35mg Boost additional 2.5mg for 3 days, then resume above plan. Follow up with a draw on Wednesday. Patient was not bridged with Lovenox at discharge from [facility]. Patient has been back on warfarin for 1 week. BURAK Wright's phone number ([phone]), nurse with Vera. [employer] fax number is [phone] per pt. Home Health Order: draw INR on Wednesday10/28/2021 Completed by: Jeane Dykes, [facility] [employer] Other 01-01-2022 History of Present illness Narrative* [...] details. * She has remote history of UT , cardiogenic shock, PCI circumflex and iABP, with persistent severe LV dysfunction. She later occluded her cicumflex. Years later, she had HF and severe MR and underwentmitral valve repair at [facility]. She had recurrent VT and atrial arrhythmias, and underwent several ablations and repeat percutaneous MVR at [facility]. After her MVR and ablation in July,, she had KALLI when then improved. She has had recurrent ICD shocks for atrial flutter. * Personal review of ECG and cardiac data reviewed * Outside records: * EP study and successful ablation of atrial flutter. Multiple atrial tachycardias, possible left atrial tachycardia also noted and not targeted for ablation. December 2021. * [facility] * Cardiology consult Oct [...] Patient reports that she follows up with [facility] [place] [facility]ology for further adjustment of medication. Patient will notify us with whom she follows. Co nsider referral to advanced heart failure section. * Sustained VT s/p ablations at [facility]. No documentation of ablations available in chart. * CAD, chronic. See above. Reviewed meds. Continue meds. Discussed refills. * Biventricular ICD for refractory heart failure. Medtronic [id number]. Reviewed device check. No recentdevice check noted. [facility] for device checks. * Hypertension, chronic. Stable. Reviewed meds. Continue meds. Discussed refills. * Migraine headache * AHA recommendations for exercise, diet, and behavioral modification reviewed with pt. * The patient and I discussed the mechanism of arrhythmia, ablation to prevent atrial flutter, no recurrent inappropriate shocks, need for compliance for device checks, order sent to [facility] for device checks, follow-up with heart failure clinic at [facility], indications for and typesof medications, discussion if and what medication refills needed, treatment options, risks, benefits, and imponderables. [place] [employer] Association lifestyle changes and behavioral modification discussed. All questions answered in detail. Counseling over 50% visit regarding above. Patient appreciative of care. * Grammar * Please excuse grammatical or dictation errors as software dictation application being used. [facility] [employer] [address] DO Work Phone: 1([phone]) 224-337211-18-2021 Evaluation note* Encounter Date Diagnosis Assessment Notes [...] Follow up in 2 weeks. Seen by eMmo Fuchs PharmD [employer] Other 11-01-2021 Evaluation note* Encounter Date Diagnosis [...] 2 weeks. Seen by Susan Euceda RN [employer] Other 10-11-2021 Evaluation note* Encounter Date Diagnosis [...] 2 weeks. Seen by Jose Molina PharmD [employer] Other 10-17-2020 History of Past illness Narrative* [...] and 260ms) terminating VT. Transfer to [facility] on 06/20 Plan: Continue amiodarone 400 mg [...] 07/13/2012 1 09/15/2011 Overview: IV Fentanyl PRN, LOG TURNER, Lidoderm patches, Po pain meds Pulmonary insuff [...] papillary muscles and chordal apparatus Dual chamber PANCAKE PROFESSIONAL-D 07/23/2020 Overview: On 07.14.12 -fired x6 for SVT/AF HRs 140-150 (pacer set at 130- any HR over that it recognizes as VT). EP consulted- will follow their recommendations (will continue po amio taper to control rate). Needs pacer check- Wednesday07.18.2012- will d/w EP about pacer check. H/o GERD 07/23/2020 Overview: 07.18.2012: Asymptomatic. On Protonix. documented as of this encounter (statuses as of 01/14/2022) [facility] History of Past illness Narrative* Problem [...] and 260ms) terminating VT. Transfer to [facility] on 06/20 Plan: Continue amiodarone 400 mg [...] 07/13/2012 1 09/15/2011 Overview: IV Fentanyl PRN, LOG TURNER, Lidoderm patches, Po pain meds Pulmonary insuff [...] papillary muscles and chordal apparatus Dual chamber PANCAKE PROFESSIONAL-D 07/23/2020 Overview: On 07.14.12 -fired x6 for SVT/AF HRs 140-150 (pacer set at 130- any HR over that it recognizes as VT). EP consulted- will follow their recommendations (will continue po amio taper to control rate). Needs pacer check- Wednesday07.18.2012- will d/w EP about pacer check. H/o GERD 07/23/2020 Overview: 07.18.2012: Asymptomatic. On Protonix. documented as of this encounter (statuses as of 04/12/2022) [facility] History of Past illness Narrative* Problem [...] and 260ms) terminating VT. Transfer to [facility] on 06/20 Plan: Continue amiodarone 400 mg [...] 07/13/2012 1 09/15/2011 Overview: IV Fentanyl PRN, LOG TURNER, Lidoderm patches, Po pain meds Pulmonary insuff [...] papillary muscles and chordal apparatus Dual chamber PANCAKE PROFESSIONAL-D 07/23/2020 Overview: On 07.14.12 -fired x6 for SVT/AF HRs 140-150 (pacer set at 130- any HR over that it recognizes as VT). EP consulted- will follow their recommendations (will continue po amio taper to control rate). Needs pacer check- Wednesday07.18.2012- will d/w EP about pacer check. H/o GERD 07/23/2020 Overview: 07.18.2012: Asymptomatic. On Protonix. documented as of this encounter (statuses as of 06/01/2022) [facility] History of Past illness Narrative* Problem [...] and 260ms) terminating VT. Transfer to [facility] on 06/20 Plan: Continue amiodarone 400 mg [...] 07/13/2012 1 09/15/2011 Overview: IV Fentanyl PRN, LOG TURNER, Lidoderm patches, Po pain meds Pulmonary insuff [...] papillary muscles and chordal apparatus Dual chamber PANCAKE PROFESSIONAL-D 07/23/2020 Overview: On 07.14.12 -fired x6 for SVT/AF HRs 140-150 (pacer set at 130- any HR over that it recognizes as VT). EP consulted- will follow their recommendations (will continue po amio taper to control rate). Needs pacer check- Wednesday07.18.2012- will d/w EP about pacer check. H/o GERD 07/23/2020 Overview: 07.18.2012: Asymptomatic. On Protonix. documented as of this encounter (statuses as of 07/01/2022) [facility] History of Past illness Narrative* Problem [...] and 260ms) terminating VT. Transfer to [facility] on 06/20 Plan: Continue amiodarone 400 mg [...] 07/13/2012 1 09/15/2011 Overview: IV Fentanyl PRN, LOG TURNER, Lidoderm patches, Po pain meds Pulmonary insuff [...] papillary muscles and chordal apparatus Dual chamber PANCAKE PROFESSIONAL-D 07/23/2020 Overview: On 07.14.12 -fired x6 for SVT/AF HRs 140-150 (pacer set at 130- any HR over that it recognizes as VT). EP consulted- will follow their recommendations (will continue po amio taper to control rate). Needs pacer check- Wednesday07.18.2012- will d/w EP about pacer check. H/o GERD 07/23/2020 Overview: 07.18.2012: Asymptomatic. On Protonix. documented as of this encounter (statuses as of 07/27/2022) [facility] History of Past illness Narrative* Problem [...] and 260ms) terminating VT. Transfer to [facility] on 06/20 Plan: Continue amiodarone 400 mg [...] 07/13/2012 1 09/15/2011 Overview: IV Fentanyl PRN, LOG TURNER, Lidoderm patches, Po pain meds Pulmonary insuff [...] papillary muscles and chordal apparatus Dual chamber PANCAKE PROFESSIONAL-D 07/23/2020 Overview: On 07.14.12 -fired x6 for SVT/AF HRs 140-150 (pacer set at 130- any HR over that it recognizes as VT). EP consulted- will follow their recommendations (will continue po amio taper to control rate). Needs pacer check- Wednesday07.18.2012- will d/w EP about pacer check. H/o GERD 07/23/2020 Overview: 07.18.2012: Asymptomatic. On Protonix. documented as of this encounter (statuses as of 08/30/2022) [facility] History of Past illness Narrative* Problem [...] and 260ms) terminating VT. Transfer to [facility] on 06/20 Plan: Continue amiodarone 400 mg [...] 07/13/2012 1 09/15/2011 Overview: IV Fentanyl PRN, LOG TURNER, Lidoderm patches, Po pain meds Pulmonary insuff [...] papillary muscles and chordal apparatus Dual chamber PANCAKE PROFESSIONAL-D 07/23/2020 Overview: On 07.14.12 -fired x6 for SVT/AF HRs 140-150 (pacer set at 130- any HR over that it recognizes as VT). EP consulted- will follow their recommendations (will continue po amio taper to control rate). Needs pacer check- Wednesday07.18.2012- will d/w EP about pacer check. H/o GERD 07/23/2020 Overview: 07.18.2012: Asymptomatic. On Protonix. documented as of this encounter (statuses as of 09/11/2022) [facility] History of Past illness Narrative* Problem [...] and 260ms) terminating VT. Transfer to [facility] on 06/20 Plan: Continue amiodarone 400 mg [...] 07/13/2012 1 09/15/2011 Overview: IV Fentanyl PRN, LOG TURNER, Lidoderm patches, Po pain meds Pulmonary insuff [...] papillary muscles and chordal apparatus Dual chamber PANCAKE PROFESSIONAL-D 07/23/2020 Overview: On 07.14.12 -fired x6 for SVT/AF HRs 140-150 (pacer set at 130- any HR over that it recognizes as VT). EP consulted- will follow their recommendations (will continue po amio taper to control rate). Needs pacer check- Wednesday07.18.2012- will d/w EP about pacer check. H/o GERD 07/23/2020 Overview: 07.18.2012: Asymptomatic. On Protonix. documented as of this encounter (statuses as of 11/28/2022) [facility] History of Past [facility] Narrative* Problem [...] and 260ms) terminating VT. Transfer to [facility] on 06/20 Plan: Continue amiodarone 400 mg [...] 07/13/2012 1 09/15/2011 Overview: IV Fentanyl PRN, LOG TURNER, Lidoderm patches, Po pain meds Pulmonary insuff [...] papillary muscles and chordal apparatus Dual chamber [employer]-D 07/23/2020 Overview: On 07.14.12 -fired x6 for SVT/AF HRs 140-150 (pacer set at 130- any HR over that it recognizes as VT). EP consulted- will follow their recommendations (will continue po amio taper to control rate). Needs pacer check- Wednesday07.18.2012- will d/w EP about pacer check. H/o GERD 07/23/2020 Overview: 07.18.2012: Asymptomatic. On Protonix. documented as of this encounter (statuses as of 03/05/2023) [facility] History of Past illness Narrative* Problem [...] and 260ms) terminating VT. Transfer to [facility] on 06/20 Plan: Continue amiodarone 400 mg [...] pain 07/13/2012 07/16/2012 Overview: IV Fentanyl PRN, LOG TURNER, Lidoderm patches, Po pain meds Pulmonary insuff [...] papillary muscles and chordal apparatus Dual chamber [employer]-D 0 Overview: On 11.15.12 -fired x6 for SVT/AF HRs 140-150 (pacer set at 130- any HR over that it recognizes as VT). EP consulted- will follow their recommendations (will continue po amio taper to control rate). Needs pacer check- Wednesday07.18.2012- will d/w EP about pacer check. H/o GERD 07/23/2020 Overview: 07.18.2012: Asymptomatic. On Protonix. documented as of this encounter (statuses as of 03/29/2023) [facility] History of Past illness Narrative* Problem [...] and 260ms) terminating VT. Transfer to [facility] on 06/20 Plan: Continue amiodarone 400 mg [...] pain 07/13/2012 07/16/2012 Overview: IV Fentanyl PRN, LOG TURNER, Lidoderm patches, Po pain meds Pulmonary insuff [...] papillary muscles and chordal apparatus Dual chamber [employer]D 0 Overview: On 07.14.12 -fired x6 for SVT/AF HRs 140-150 (pacer set at 130- any HR over that it recognizes as VT). EP consulted- will follow their recommendations (will continue po amio taper to control rate). Needs pacer check- Wednesday07.18.2012- will d/w EP about pacer check. H/o GERD 07/23/2020 Overview: 07.18.2012: Asymptomatic. On Protonix. documented as of this encounter (statuses as of 04/10/2023) [facility] Past [facility] Narrative* Problem [...] and 260ms) terminating VT. Transfer to [facility] on 06/20 Plan: Continue amiodarone 400 mg [...] pain 07/13/2012 07/16/2012 Overview: IV Fentanyl PRN, LOG TURNER, Lidoderm patches, Po pain meds Pulmonary insuff [...] papillary muscles and chordal apparatus Dual chamber [employer]D 0 Overview: On 07.14.12 -fired x6 for SVT/AF HRs 140-150 (pacer set at 130- any HR over that it recognizes as VT). EP consulted- will follow their recommendations (will continue po amio taper to control rate). Needs pacer check- Wednesday07.18.2012- will d/w EP about pacer check. H/o GERD 07/23/2020 Overview: 07.18.2012: Asymptomatic. On Protonix. documented as of this encounter (statuses as of 04/22/2023) [facility] History of Past [facility] Narrative* Problem [...] and 260ms) terminating VT. Transfer to [facility] on 06/20 Plan: Continue amiodarone 400 mg [...] pain 07/13/2012 07/16/2012 Overview: IV Fentanyl PRN, LOG TURNER, Lidoderm patches, Po pain meds Pulmonary insuff [...] papillary muscles and chordal apparatus Dual chamber [employer]D 0 Overview: On 07.14.12 -fired x6 for SVT/AF HRs 140-150 (pacer set at 130- any HR over that it recognizes as VT). EP consulted- will follow their recommendations (will continue po amio taper to control rate). Needs pacer check- Wednesday07.18.2012- will d/w EP about pacer check. H/o GERD 07/23/2020 Overview: 07.18.2012: Asymptomatic. On Protonix. documented as of this encounter (statuses as of 05/07/2023) [facility] of Past [facility] Narrative* Problem [...] and 260ms) terminating VT. Transfer to [facility] on 06/20 Plan: Continue amiodarone 400 mg [...] pain 07/13/2012 07/16/2012 Overview: IV Fentanyl PRN, LOG TURNER, Lidoderm patches, Po pain meds Pulmonary insuff [...] papillary muscles and chordal apparatus Dual chamber [employer]-D 0 Overview: On 07.14.12 -fired x6 for SVT/AF HRs 140-150 (pacer set at 130- any HR over that it recognizes as VT). EP consulted- will follow their recommendations (will continue po amio taper to control rate). Needs pacer check- Wednesday07.18.2012- will d/w EP about pacer check. H/o GERD 07/23/2020 Overview: 07.18.2012: Asymptomatic. On Protonix. documented as of this encounter (statuses as of 07/28/2023) [facility] of Past [facility] Narrative* Problem [...] and 260ms) terminating VT. Transfer to [facility] on 06/20 Plan: Continue amiodarone 400 mg [...] pain 07/13/2012 07/16/2012 Overview: IV Fentanyl PRN, LOG TURNER, Lidoderm patches, Po pain meds Pulmonary insuff [...] papillary muscles and chordal apparatus Dual chamber [employer]-D 0 Overview: On 07.14.12 -fired x6 for SVT/AF HRs 140-150 (pacer set at 130- any HR over that it recognizes as VT). EP consulted- will follow their recommendations (will continue po amio taper to control rate). Needs pacer check- Wednesday07.18.2012- will d/w EP about pacer check. H/o GERD 07/23/2020 Overview: 07.18.2012: Asymptomatic. On Protonix. documented as of this encounter (statuses as of 07/28/2023) [facility] of Past [facility] Narrative* Problem [...] and 260ms) terminating VT. Transfer to [facility] on 06/20 Plan: Continue amiodarone 400 mg [...] pain 07/13/2012 07/16/2012 Overview: IV Fentanyl PRN, LOG TURNER, Lidoderm patches, Po pain meds Pulmonary insuff [...] 07/23/2020 Remote STEMI (1998) 07/23/20 20 Overview: 11.19.2012: On ASA, BB, ADELE. On Zocor 80 [...] papillary muscles and chordal apparatus Dual chamber [employer]-D 0 Overview: On 07.14.12 -fired x6 for SVT/AF HRs 140-150 (pacer set at 130- any HR over that it recognizes as VT). EP consulted- will follow their recommendations (will continue po amio taper to control rate). Needs pacer check- Wednesday07.18.2012- will d/w EP about pacer check. H/o GERD 07/23/2020 Overview: 07.18.2012: Asymptomatic. On Protonix. documented as of this encounter (statuses as of 08/10/2023) [facility] March 30, 2024 4:36pm Note Date/Time March 30, 2024 4:3 6pm [facility] [address] [place] [address] Cardiology Consult Note Signed Patient: Essence Vincent MR#: [id number] : 1970 Acct:[id number] Age/Sex: 53 / F Adm Date: 4 Loc: 3T Room: [address] [place] [address] Type: ADM INOo Attending Dr: Patrica Mcmahon MD Copies to: Amanda Grace, FUTURES TRADER, PATENT ENGINEER MD Megan Mcarthur, DO~ Cardiology HPI History of Present Illness Consult Date: 03/30/24 Reason for Consult: Ischemic cardiomyopathy, remote UT, remote MVR HPI: Ms. Vincent is a [...] have valve in valve mitral [facility]. She also has AICD biventricular pacemaker followed by Dr. Munson at [facility]. She has not seen me since 2021. Apparently she had her generator change with Dr. Margareth Nunez in 2023. She no longer follows withcardiology locally. I believe she is getting most of her cardiology care at [facility] electrophysiology care between [facility] and ?EM In any event, she has left [facility] Medical History (Updated 03/30/24 @ 16:35 by Megan Hoskins DO) Restless leg syndrome Anxiety Paroxysmal A-fib Deep vein thrombosis (DVT) Presence of combination internal cardiac defibrillator (ICD) and pacemaker Ventricular tachycardia (08/04/18) Hypotension CHF (congestive heart failure) Atrial thrombus Large [facility] at [facility]. COPD (chronic obstructive pulmonary disease) Myocardial [...] breath or wheezing 02/17/24 [History Confirmed 03/30/24] [id number]-[id number] 50 mg-300 mg-40 mg capsule (Fioricet) 1 [...] 8.3 H Lymph # (Auto) N/A 1.6 [place] # (Auto) N/A 1.0 H Eos # [...] Code(s): I25.10 - Atherosclerotic heart disease of [place] coronary artery without angina pectoris (2) Ischemic [...] <Electronically signed by Megan Hoskins DO> 03/30/24 1636 [facility] Work Phone: Evaluation note* Diagnosis Onset Date Resolution Status Afib acute Anemia acute CAD (coronary artery disease) acute Iron deficiency anemia acute Ischemic cardiomyopathy with implantable cardioverter-defibrillator (ICD) acute Palpitations acute Supratherapeutic INR acute Ventricular tachycardia acut e [facility] noteNo InformationNoNanjing Guanya [employer] Equipment Other evaluation noteNoNanjing Guanya [employer] Equipment Other Evaluation note* Diagnosis Onset Date Resolution Status KALLI (acute kidney injury) ac eagle Digoxin toxicity acute Elevated troponin I level ac eagle Hypotension acute Thrombocytopenia acute [facility] noteNo assessment information available [facility] Work Phone: Evaluation note* Diagnosis Persistent atrial fibrillation (HCC)- Primary Atrial fibrillation [facility] Diagnosis ICD (implantable cardioverter-defibrillator) battery depletion documented in this encounter [facility] Work Phone: Evaluation note* Diagnosis ICD (implantable cardioverter-defibrillator) battery depletion Elective replacement of implantable cardioverter-defibrillator (ICD) battery required- Primary Biventricular implantable cardioverter-defibrillator (ICD) in situ Biventricular implantable cardioverter-defibrillator (ICD) in situ Elective replacement of implantable cardioverter-defibrillator (ICD) battery required documented in this encounter [facility] Work Phone: Evaluation note* Diagnosis Elective replacement of implantable cardioverter-defibrillator (ICD) battery required- Primary Biventricular implantable cardioverter-defibrillator (ICD) in situ Elective replacement of implantable cardioverter-defibrillator (ICD) battery required Atrial tachycardia Other specified cardiac dysrhythmias Paroxysmal atrial fibrillation (CMS/HCC) Atrial fibrillation CAD (coronary artery disease) Coronary atherosclerosis of unspecified type of vessel, [place] or graft VT (ventricular tachycardia) (CMS/HCC) Paroxysmal ventricular tachycardia Biventricular implantable cardioverter-defibrillator (ICD) in situ Biventricular implantable cardioverter-defibrillator (ICD) in situ Elective replacement of implantable cardioverter-defibrillator (ICD) battery required documented in this encounter [facility] Work Phone: Evaluation note* Diagnosis Hypokalemia- Primary Hypopotassemia Hypokalemia Hypopotassemia Dizziness Dizziness and giddiness Longstanding persistent atrial fibrillation (HCC) [facility] Diagnosis Longstanding persistent atrial fibrillation (HCC)- Primary documented [facility] [place] [facility]* Diagnosis Onset Date Resolution Status Cellulitis of face noneactiv e [facility] Work Phone: Evaluation note* Diagnosis Onset Date Resolution Status Generalized anxiety disorder acute Hypokalemia acute Right shoulder pain acute Right upper limb pain acute [facility] Work Phone: Evaluation note* Diagnosis Onset Date Resolution Status Atrial fibrillation acute Coronary artery disease acut e Generalized anxiety disorder acute GERD (gastroesophageal reflux disease) acute History of aneurysm acute History of UT (myocardial infarction) acute History of mitral valve replacement acute Hypokalemia acute Migraines acute Restless leg syndrome acute Right shoulder pain acute Right upper limb pain acute Depression acute Generalized anxiety disorder acute [facility] Work Phone: Evaluation note* Diagnosis Onset Date Resolution Status Atrial fibrillation acute Coronary artery disease acut e Generalized anxiety disorder acute GERD (gastroesophageal reflux disease) acute History of aneurysm acute History of UT (myocardial infarction) acute History of mitral valve replacement acute Hypokalemia acute Migraines acute Restless leg syndrome acute Right shoulder pain acute Right upper limb pain acute Contusion, upper arm acute Depression acute Generalized anxiety disorder acute Injury of right upper arm ac eagle Chest pain acute Heart palpitations acute [facility] Work Phone: Evaluation note* Diagnosis Onset Date Resolution Status Atrial fibrillation acute Coronary artery disease acut e Generalized anxiety disorder acute GERD (gastroesophageal reflux disease) acute History of aneurysm acute History of UT (myocardial infarction) acute History of mitral valve replacement acute Hypokalemia acute Migraines acute Restless leg syndrome acute Right shoulder pain acute Right upper limb pain acute Contusion, upper arm acute Depression acute Generalized anxiety disorder acute Injury of right upper arm ac eagle ASCVD (arteriosclerotic cardiovascular disease) acute Atrial thrombus [...] acute Ventricular tachycardia August 04, 2018 acute [facility] Work Phone: Hissele general Narrative - Reported* Type Description Date [...] see surgical hx Hospitalization History heart issues [employer] Other Hisytxa general Narrative - ReportedNouniversity [facility] [employer] Other Hisgftu general Narrative - Reported* Type Description Date [...] see surgical hx Hospitalization History heart issues [employer] Other History of Present illness Narrative* She is referred by Dr. Hoskins for evaluation for ablation of atrial flutter. * She has remote history of UT , cardiogenic shock, PCI circumflex and iABP, with persistent severe LV dysfunction. She later occluded her cicumflex. Years later, she had HF and severe MR and underwentmitral valve repair at [facility]. She had recurrent VT and atrial arrhythmias, and underwent several ablations and repeat percutaneous MVR at [facility]. After her MVR and ablation in [...] reviewed * Outside records: * [facility] * Cardiology consult Oct 2021 * ECG Oct 2021 * H and P Oct 2021 * Echo Oct 2021. LVEF 15% * ECG: Today. Atrial flutter. LAD. QT 400 ms * See signed ECG and check /Paceart. * Imp / Plan * Paroxsymal atrial flutter. Mutliple ICD shocks. Shared decision making re: atrial flutter management. Preop cardiac evaluation performed. Streetline decision tool. She opts for EP study ablation of atrial flutter. Procedures, risks, benefits, and imponderables reviewed. Consented. * Chronic systolic heart failure. Stable NYHA III C HF. Reviewed meds. Continue meds. Refills. * Sustained VT s/p ablations at [facility]. No documentation of ablations available in chart at time of visit * CAD, chronic. See above. Reviewed meds. Continue meds. Refills. * Biventricular ICD for refractor heart failure. Medtronic [id number]. Reviewed device check. Followed at [facility]. * Preop cardiac eval. See orders. * [...] needed, treatment options, risks, benefits, and imponderables. [employer] lifestyle changes and behavioral modification discussed. All questions answered in detail. Counseling over 50% visit regarding above. Patient appreciative of care. * Grammar * Please excuse grammatical or dictation errors as software dictation application being used. -[facility] [place] [address] DO Work Phone: Hospital Discharge instructions* Attachments The following attachments cannot be sent through Care Everywhere. * Hypokalemia (Telugu) [facility] Additional Instructions It does not [...] Lovenox. They will tell you when to stop.[facility] Work Phone: Hospital Discharge instructionsAmbulatory Orders* Referral to Psychiatry Time Frame: 02/22/24, Location: None Selected [facility] Work Phone: Hospital Discharge instructions Additional Instructions Please have a PT/INR drawn on 04/03/24.[facility] Work Phone: Reason for visit [facility] nurse RC/waiting for referralWesterly [employer] Other Summary Purpose Family History No Family [...] FoundDocuments on File Type Date Recorded Patient Software Quality Assurance Analyst Expl anation Advance Directive(s) 06/18/2020 4:28 PM [...] Documents on File Type Date Recorded Patient Software Quality Assurance Analyst Expl anation Advance Directive(s) 03/12/2021 1:21 PM Advance Directive(s) 12/27/2020 3:12 PM Advance Directive(s) 08/18/2020 1:26 PM Advance Directive(s) 08/17/2020 6:49 PM Advance Directive(s) 08/11/2020 1:34 PM [facility] Advance Directive(s) 07/23/2020 12:14 PM [...] reflux disease) History of aneurysm History of UT (myocardial infarction) History of mitral valve replacement Hypokalemia Migraines Restless leg syndrome Right shoulder pain Right upper limb pain Depression Generalized anxiety disorder Chief Complaint ^ chest pain follow up Fall Chest pain Reason for Visit Atrial fibrillation Coronary artery disease Generalized anxiety disorder GERD (gastroesophageal reflux disease) History of aneurysm History of UT (myocardial infarction) History of mitral valve replacement [...] reflux disease) History of aneurysm History of UT (myocardial infarction) History of mitral valve replacement [...] pain acute Elevated troponin I level ac eagle Ischemic cardiomyopathy with implantable cardioverter-defibrillator (ICD) acute [...] acut e Chief Complaint Order sent to [facility] for testing due in patient referred by Dr. Hoskins for possible ablation. [facility] 11/04/2021atient is here today for a scheduled follow upAmiodarone Order sent to [facility] for testing due in May Reason for Referral Specialty Diagnoses / Procedures Referred By Purnima ferris Referred To Contact Pharmacist / Pharmacy Diagnoses Longstanding persistent atrial fibrillation (HCC) Swapnil Brand MD [address] [place] [address] [facility] [address] [place] [address] Referral ID Status Reason Start Date Expiration Date Visits Requested Visits Authorized [id number] Authorized Specialty Services Required 10/06/2023 10/05/2024 99 99 Scheduling Instructions [facility] Medication Management Question Answer New Start No Tx Agent Warfarin INR Goal 2.0-3.0 [3] Tx Duration Indefinite Comments Electronic signature for this referral acknowledges acceptance of entering into a collaborative practice agreement pursuant to Section [address] [place] Revised Code. Specialty Diagnoses / Procedures Referred By Purnima ferris Referred To Contact Cardiology Diagnoses ICD (implantable cardioverter-defibrillator) battery depletion Procedures Cardiac Device Check - In Clinic Margareth Nunez MD [address] [facility] [address] [place] [address] Referral ID Status Reason Start Date Expiration Date Visits Requested Visits Authorized [id number] Pending Review Perform Procedure 3 07/26/2024 52 52 Additional Source Comments INFORMATION SOURCE (unrecogn ized section and content) DATE CREATED AUTHOR 10/19/2018 [facility] DATE CREATED AUTHOR AUTHOR'S ORGANIZ ATION 09/30/2021 [employer] [facility] DATE CREATED AUTHOR AUTHOR'S ORGANIZ ATION 02/07/2022 [facility] DATE CREATED AUTHOR AUTHOR'S ORGANIZ ATION 04/26/2022 [employer] DATE CREATED AUTHOR AUTHOR'S ORGANIZ ATION 02/06/2023 [facility] DATE CREATED AUTHOR AUTHOR'S ORGANIZ ATION 08/29/2023 [facility] DATE CREATED AUTHOR AUTHOR'S ORGANIZ ATION 09/30/2023 [facility] DATE CREATED AUTHOR AUTHOR'S ORGANIZ ATION 10/05/2023 [facility] DATE CREATED AUTHOR AUTHOR'S ORGANIZ ATION 10/14/2023 [facility] DATE CREATED AUTHOR AUTHOR'S ORGANIZ ATION 01/07/2024 [facility] DATE CREATED AUTHOR AUTHOR'S ORGANIZ ATION 04/26/2024 [facility] DATE CREATED AUTHOR AUTHOR'S ORGANIZ ATION 05/22/2024 [facility] DATE CREATED AUTHOR AUTHOR'S ORGANIZ ATION 05/26/2024 [facility] Source Comments (unrecognize d section and content) In the event this informatio n is protected by the Federal Confidentiality of Alcohol and Drug Abuse Patient Records regulations: The Federal rules restrict any use of the information to criminally investigate or prosecute any alcohol or drug abuse patient.[facility] Hospital[facility] the event this information is protected by the Federal Confidentiality of Alcohol and Drug Abuse Patient Records regulations: The Federal rules restrict any use of the information to criminally investigate or prosecute any alcohol or drug abuse patient.[facility] HospitalIn the event this information is protected by the Federal Confidentiality of Alcohol and Drug Abuse Patient Records regulations: The Federal rules restrict any use of the information to criminally investigate or prosecute any alcohol or drug abuse patient.[facility] HospitalIn the event this information is protected by the Federal Confidentiality of Alcohol and Drug Abuse Patient Records regulations: The Federal rules restrict any use of the information to criminally investigate or prosecute any alcohol or drug abuse patient.[facility] HospitalIn the event this information is protected by the Federal Confidentiality of Alcohol and Drug Abuse Patient Records regulations: The Federal rules restrict any use of the information to criminally investigate or prosecute any alcohol or drug abuse patient.[facility] HospitalIn the event this information is protected by the Federal Confidentiality of Alcohol and Drug Abuse Patient Records regulations: The Federal rules restrict any use of the information to criminally investigate or prosecute any alcohol or drug abuse patient.[facility] HospitalIn the event this information is protected by the Federal Confidentiality of Alcohol and Drug Abuse Patient Records regulations: The Federal rules restrict any use of the information to criminally investigate or prosecute any alcohol or drug abuse patient.[facility] HospitalIn the event this information is protected by the Federal Confidentiality of Alcohol and Drug Abuse Patient Records regulations: The Federal rules restrict any use of the information to criminally investigate or prosecute any alcohol or drug abuse patient.[facility] HospitalIn the event this information is protected by the Federal Confidentiality of Alcohol and Drug Abuse Patient Records regulations: The Federal rules restrict any use of the information to criminally investigate or prosecute any alcohol or drug abuse patient.[facility] HospitalIn the event this information is protected by the Federal Confidentiality of Alcohol and Drug Abuse Patient Records regulations: The Federal rules restrict any use of the information to criminally investigate or prosecute any alcohol or drug abuse patient.[facility] HospitalIn the event this information is protected by the Federal Confidentiality of Alcohol and Drug Abuse Patient Records regulations: The Federal rules restrict any use of the information to criminally investigate or prosecute any alcohol or drug abuse patient.[facility] HospitalIn the event this information is protected by the Federal Confidentiality of Alcohol and Drug Abuse Patient Records regulations: The Federal rules restrict any use of the information to criminally investigate or prosecute any alcohol or drug abuse patient.[facility] HospitalIn the event this information is protected by the Federal Confidentiality of Alcohol and Drug Abuse Patient Records regulations: The Federal rules restrict any use of the information to criminally investigate or prosecute any alcohol or drug abuse patient.[facility] HospitalIn the event this information is protected by the Federal Confidentiality of Alcohol and Drug Abuse Patient Records regulations: The Federal rules restrict any use of the information to criminally investigate or prosecute any alcohol or drug abuse patient.[facility] HospitalIn the event this information is protected by the Federal Confidentiality of Alcohol and Drug Abuse Patient Records regulations: The Federal rules restrict any use of the information to criminally investigate or prosecute any alcohol or drug abuse patient.[facility] HospitalIn the event this information is protected by the Federal Confidentiality of Alcohol and Drug Abuse Patient Records regulations: The Federal rules restrict any use of the information to criminally investigate or prosecute any alcohol or drug abuse patient.[facility] HospitalIn the event this information is protected by the Federal Confidentiality of Alcohol and Drug Abuse Patient Records regulations: The Federal rules restrict any use of the information to criminally investigate or prosecute any alcohol or drug abuse patient.[facility] HospitalIn the event this information is protected by the Federal Confidentiality of Alcohol and Drug Abuse Patient Records regulations: The Federal rules restrict any use of the information to criminally investigate or prosecute any alcohol or drug abuse patient.[facility] HospitalIn the event this information is protected by the Federal Confidentiality of Alcohol and Drug Abuse Patient Records regulations: The Federal rules restrict any use of the information to criminally investigate or prosecute any alcohol or drug abuse patient.[facility] HospitalIn the event this information is protected by the Federal Confidentiality of Alcohol and Drug Abuse Patient Records regulations: The Federal rules restrict any use of the information to criminally investigate or prosecute any alcohol or drug abuse patient.[facility] Care Teams (unrecognized sec tion and content) Team Status: Active Member Role Status Dates Karen Garner MD Primary Care Provider Active Team Status: Active Member Role Status Dates Darian Smiley DO Attending Provider Active Start: November 29, 2003 Team Status: Inactive Member Role Status Dates Amanda Grace APRN BOILER TENDERS SUPERVISOR-C Primary Care Provider Active Start: November 11, 2023 End: November 11, 2023 Verona Hoskins APRN Attending Provider Active Start: November 11, 2023 End: November 11, 2023 Team Status: Inactive Member Role Status Dates Tanner Mae Jr, MD Emergency Provider Active Start: January 24, 2024 End: January 24, 2024 Karen Garner MD Primary Care Provider Active Start: January 24, 2024 End: January 24, 2024 Ward Helper Relationship Specialty Start Date End Date Robe Alonso (Fax) PCP - General 04/16/10 Nadir Hoskins [address] [place] [address] Physician Cardiology 10/13/18 Margareth Nunez [address] [place] [phone] Cardiology 10/14/18 Violeta Chan MD [address] [place] [address] Loss Prevention Auditor Cardiology 07/04/20 Violeta Chan MD [address] [place] [address] Primary Staff Physician Cardiology 02/11/21 Ward Helper Relationship Specialty Start Date End Date Robe Alonso (Fax) PCP - General 04/16/10 Nadir Hoskins [address] [address] Physician Cardiology 10/13/18 Margareth Nunez [address] [place] [phone] Cardiology 10/14/18 Violeta Chan MD [address] [place] [address] Loss Prevention Auditor Cardiology 07/04/20 Violeta Chan MD [address] [place] [address] Primary Staff Physician Cardiology 02/11/21 Team Status: Active Member Role Status Dates Darian Smiley DO Attending Provider Active Team Status: Active Member Role Status Dates PHYSICIAN NO FAMILY Primary Care Provider Active Ward Helper Relationship Specialty Start Date End Date Robe Alonso (Fax) PCP - General 04/16/10 Nadir Hoskins [address] [place] [address] Physician Cardiology 10/13/18 Margareth Nunez MD Cardiology 10/14/18 Violeta Chan MD [address] [place] [address] Loss Prevention Auditor Cardiology 07/04/20 Violeta Chan MD [address] [place] [address] Primary Staff Physician Cardiology 02/11/21 Ward Helper Relationship Specialty Start Date End Date Robe Alonso (Fax) PCP - General 04/16/10 Nadir Hoskins [address] [address] Physician Cardiology 10/13/18 Margareth Nunez MD [address] [address] Cardiology 10/14/18 Violeta Chan MD [address] [place] [address] Loss Prevention Auditor Cardiology 07/04/20 Violeta Chan MD [address] [place] [address] Primary Staff Physician Cardiology 02/11/21 Ward Helper Relationship Specialty Start Date End Date Robe Alonso (Fax) PCP - General 04/16/10 Nadir Hoskins [address] [address] Physician Cardiology 10/13/18 Margareth Nunez MD [address] [address] Cardiology 10/14/18 Violeta Chan MD [address] [place] [address] Loss Prevention Auditor Cardiology 07/04/20 Violeta Chan MD [address] [place] [address] Primary Staff Physician Cardiology 02/11/21 Ward Helper Relationship Specialty Start Date End Date Robe Alonso (Fax) PCP - General 04/16/10 Nadir Hoskins [address] [address] Physician Cardiology 10/13/18 Margareth Nunez MD [address] [address] Cardiology 10/14/18 Violeta Chan MD [address] [place] [address] Loss Prevention Auditor Cardiology 07/04/20 Violeta Chan MD [address] [place] [address] Primary Staff Physician Cardiology 02/11/21 Ward Helper Relationship Specialty Start Date End Date Anju Cuevas, [facility] [address] [place] [address] Physician Oral & Maxillofacial Surgery 06/04/20 Ward Helper Relationship Specialty Start Date End Date Robe Alonso (Fax) PCP - General 04/16/10 Nadir Hoskins [address] [place] [address] Physician Cardiology 10/13/18 Margareth Nunez MD [address] [address] Cardiology 10/14/18 Violeta Chan MD [address] [place] [address] Loss Prevention Auditor Cardiology 07/04/20 Violeta Chan MD [address] [place] [address] Primary Staff Physician Cardiology 02/11/21 Ward Helper Relationship Specialty Start Date End Date Robe Alonso (Fax) PCP - General 04/16/10 Nadir Hoskins [address] [place] [address] Physician Cardiology 10/13/18 Margareth Nunez MD [address] [address] Cardiology 10/14/18 Violeta Chan MD [address] [place] [address] Loss Prevention Auditor Cardiology 07/04/20 Violeta Chan MD [address] [place] [address] Primary Staff Physician Cardiology 02/11/21 Ward Helper Relationship Specialty Start Date End Date Robe Alonso (Fax) PCP - General 04/16/10 Nadir Hoskins [address] [address] Physician Cardiology 10/13/18 Margareth Nunez MD [address] [address] Cardiology 10/14/18 Violeta Chan MD [address] [place] [address] Loss Prevention Auditor Cardiology 07/04/20 Violeta Chan MD [address] [place] [address] Primary Staff Physician Cardiology 02/11/21 Ward Helper Relationship Specialty Start Date End Date Robe Alonso (Fax) PCP - General 04/16/10 Nadir Hoskins DO [address] [address] Physician Cardiology 10/13/18 Margareth Nunez MD [address] [address] Cardiology 10/14/18 Violeta Chan MD [address] [place] [address] Loss Prevention Auditor Cardiology 07/04/20 Violeta Chan MD [address] [place] [address] Primary Staff Physician Cardiology 02/11/21 Ward Helper Relationship Specialty Start Date End Date Robe Alonso PCP - General 04/16/10 Nadir Hoskins DO [address] [place] [address] Physician Cardiology 10/13/18 Margareth Nunez MD [address] [place] [address] Cardiology 10/14/18 Violeta Chan MD [address] [place] [address] Loss Prevention Auditor Cardiology 07/04/20 Violeta Chan MD [address] [place] [address] Primary Staff Physician Cardiology 02/11/21 Ward Helper Relationship Specialty Start Date End Date Robe Alonso (Fax) PCP - General 04/16/10 Nadir Hoskins DO [address] [facility] [address] [place] [address] Physician Cardiology 10/13/18 Margareth Nunez MD [address] [address] Cardiology 10/14/18 Violeta Chan MD [address] [place] [address] Loss Prevention Auditor Cardiology 07/04/20 Violeta Chan MD [address] [place] [address] Primary Staff Physician Cardiology 02/11/21 Team Status: Active Member Role Status Dates Amanda Grace APRN BOILER TENDERS SUPERVISOR-C Primary Care Provider Active Team Status: Inactive Member Role Status Dates Margareth Nunez MD Attending Provider Active Amanda Grace APRN BOILER TENDERS SUPERVISOR-C Primary Care Provider Active Ward Helper Relationship Specialty Start Date End Date Robe Alonso (Fax) PCP - General 04/16/10 Nadir Hoskins DO [address] [facility] [address] [place] [address] Physician Cardiology 10/13/18 Margareth Nunez MD [address] [facility] [address] [place] [address] Cardiology 10/14/18 Violeta Chan MD [address] [place] [address] Loss Prevention Auditor Cardiology 07/04/20 Violeta Chan MD [address] [place] [address] Primary Staff Physician Cardiology 02/11/21 Ward Helper Relationship Specialty Start Date End Date Shaikh Rojas MD [address] [place] [address] PCP - General 04/24/22 Jameel Valenzuela, FUTURES TRADER-PATENT ENGINEER [address] [facility] Office [facility], [address] [address] Nurse Practitioner Cardiology 09/02/23 Margareth Nunez MD [address] [facility] Office [facility], [address] [address] Consulting Physician Cardiology 09/02/23 Ward Helper Relationship Specialty Start Date End Date Shaikh Rojas MD [address] [place] [phone] PCP - General 04/24/22 Jameel Valenzuela, FUTURES TRADER-PATENT ENGINEER [address] [facility] [address], [address] [place] [address] Nurse Practitioner Cardiology 09/02/23 Margareth Nunez MD [address] [facility] Office [address], [address] [place] [address] Consulting Physician Cardiology 09/02/23 Ward Helper Relationship Specialty Start Date End Date Liam Hyman MD [address] [place] [facility] [place] [address] PCP - General Family Medicine 09/29/23 Jameel Valenzuela APRN-PATENT ENGINEER [address] [facility], [facility] [address] [place], [place] [phone] Nurse Practitioner Cardiology 09/02/23 Margareth Nunez MD [address] [facility], [facility] [address] [place], [place] [phone] Consulting Physician Cardiology 09/02/23 Ward Helper Relationship Specialty Start Date End Date Liam Hyman MD [address] [facility] [place] [phone] PCP - General Family Medicine 10/11/23 Ward Helper Relationship Specialty Start Date End Date Liam Hyman MD [address] [facility] [place] [address] PCP - General Family Medicine 10/11/23 Team Status: Active Member Role Status Dates Karen Garner MD Primary Care Provider Active Start: February 17, 2024 Lina Martin DO Attending Provider Active Start: February 17, 2024 Team Status: Inactive Member Role Status Dates Karen Garner MD Primary Care Provider Active Start: February 18, 2024 End: February 18, 2024 Amanda Grace APRN BOILER TENDERS SUPERVISOR-C Attending Provider Act zulma Start: February 18, 2024 End: February 18, 2024 Team Status: Inactive Member Role Status Dates Karen Garner MD Primary Care Provider Active Start: February 22, 2024 End: February 22, 2024 Amanda Grace APRN BOILER TENDERS SUPERVISOR-C Attending Provider Act zulma Start: February 22, 2024 End: February 22, 2024 Team Status: Active Member Role Status Dates Pedro Melo DO Emergency Provider Active Start: March 30, 2024 Amanda Grace APRN BOILER TENDERS SUPERVISOR-Cici Primary Care Provider Active Start: March 30, [...] In Clinic Margareth Nunez MD [address] [place] [id number] Referral ID Status Reason Start Date Expiration Date Visits Requested Visits Authorized [id number] Pending Review Perform Procedure 3 07/26/2024 52 52 Specialty Diagnoses / Procedures Referred By Contac t Referred To Contact Diagnoses Biventricular implantable cardioverter-defibrillator (ICD) in situ Elective replacement of implantable cardioverter-defibrillator (ICD) battery required Biventricular implantable cardioverter-defibrillator (ICD) in situ [Z95.810] Elective replacement of implantable cardioverter-defibrillator (ICD) battery required [Z95.810] Procedures NC RMVL IMPLTBL DFB PLS GEN W/RPLCMT PLS GEN JAVASCRIPT SOFTWARE ENGINEER LD ICD BIV Generator Change Out Margareth Nunez MD [address] [facility], [address] [address] [address] [facility] [place] [address] Referral ID Status Reason Start Date Expiration Date Visits Re quested Visits Authorized [id number] 1 1 Reason Comments Dizziness Specialty Diagnoses / Procedures Referred By Purnima ferris Referred To Contact Diagnoses Hypokalemia Dizziness Swapnil Brand MD [address] [place] [address] [facility] [address] [place] [address] Referral ID Status Reason Start Date Expiration Date Visits Re quested Visits Authorized [id number] 1 1 Specialty Diagnoses / Procedures Referred By Purnima ferris Referred To Contact Pharmacist / Pharmacy Diagnoses Longstanding persistent atrial fibrillation (HCC) Swapnil Brand MD [address] [place] [address] [facility] [address] [place] [address] Referral ID Status Reason Start Date Expiration Date Visits Requested Visits Authorized [id number] Authorized Specialty Services Required 10/06/2023 10/05/2024 99 [...] (Continued by Anesthesia - Provider: Sy Gastelum APRN-MEN'S BASKETBALL COACH)0937 (Due: Stopped - Provider: Yessi Miller APRN-PATENT ENGINEER)0948 (Anesthesia Volume Adjustment - Provider: Sy Gastelum APRN-MEN'S BASKETBALL COACH) PRN Medication Order 09/27/2023 09/28/2023 09/29/2023 acetaminophen [...] Cesar RN)0915 (Given - Provider: Sy Gastelum, FUTURES TRADER-MEN'S BASKETBALL COACH) potassium chloride 20 mEq in 100 mL [...] 24 hours. 2322 (Given - Provider: Patrice Mukherjee, RN) amiodarone (CORDARONE) tablet 400 mg 400 mg, Oral, DAILY, First dose on Wed10/06/23 at 0900, Until Discontinued 1043 (Given - Provider: Yvette Alatorre RN) 0844 (Given - Provider: Brenda Martinez RN) atorvastatin (LIPITOR) tablet 80 mg 80 mg, Oral, NIGHTLY, First dose on Wed10/06/23 at 0100, Until Discontinued 005 (Given - Provider: Tevin Gauthier RN)2203 (Given - Provider: Dennis Bustos RN) 2100 (Due) cefTRIAXone (ROCEPHIN) 1,000 mg in sodium chloride 0.9 % 50 mL IVPB (mini-bag) (COMPLETED) 1,000 mg, IntraVENous, ONCE, 1 dose, On Wed10/05/23 at 2300, Antimicrobial Indications: Urinary Tract Infection 2329 (New Bag - Provider: Patrice Mukherjee RN) [...] procedure. 0056 (Given - Provider: Tevin Gauthier RN)1314 (Given - Provider: Yvette Alatorre RN - [...] RN) 0845 (Given - Provider: Brenda Martinez, RN) levothyroxine (SYNTHROID) tablet 75 mcg 75 mcg, Oral, DAILY, First dose on Wed10/06/23 at 0700, Until Discontinued, Tube feeding (TF) interaction, obtain physician order to manage, recommend holding TF for 30 minutes before and after dose. 0553 (Given - Provider: Tevin Gauthier RN) 0511 (Given - Provider: Dennis Bustos RN)0845 (Given - Provider: Brendaamy Martinez RN) magnesium oxide (MAG-OX) tablet 400 mg 400 [...] in half and each half swallowed separately. 1823 (Given - Provider: Yvette Alatorre RN) 0845 (Given - Provider: Brenda Martinez RN)1700 (Due) potassium chloride 10 mEq/100 mL IVPB (Peripheral Line) (COMPLETED) 10 mEq, IntraVENous, EVERY HOUR, 4 doses, First dose on Wed10/05/23 at 2100, Last dose on Wed10/06/23 at 0000, at 100 mL/hr 2046 (New Bag - Provider: Moncho Zuñiga, RN)2221 (New Bag - Provider: Moncho Zuñiga, RN)2325 (New Bag - Provider: Patrice Mukherjee RN) 0045 (New Bag - Provider: Tevin Gauthier RN)0157 (Stopped - Provider: Tevin Gauthier RN) rOPINIRole (REQUIP) tablet 2 mg 2 mg, Oral, 3 TIMES DAILY, First dose (after last modification) on Wed10/06/23 at 0300, Until Discontinued 0246 (Given - Provider: Tevin Gauthier RN)1042 (Given - Provider: Yvette Alatorre, NAYLA)1428 (Given - Provider: Yvette Alatorre RN)2204 (Given - Provider: Dennis Bustos, NAYLA) 0844 (Given - Provider: Brenda Martinez RN)1400 (Due)2100 (Due) sodium chloride 0.9 % bolus 100 mL (COMPLETED) 100 mL (1.42 mL/kg), IntraVENous, at 2,000 mL/hr, Administer over 3 Minutes, ONCE, On Wed10/05/23 at 2145, For 1 dose 2154 (New Bag - Provider: Mavis Marcum) 0037 [...] mL/lumen 1043 (Given - Provider: Yvette Alatorre RN)2203 (Given - Provider: Dennis Bustos, RN) 1139 (Given - Provider: Brenda Martinez, NAYLA)2100 [...] Zuñiga RN) 0156 (Stopped - Provider: Tevin Gauthier, NAYLA) PRN Medication Order 10/05/2023 10/06/2023 10/07/2023 0.9 [...] RT Bronchodilator Protocol: Yes - Inpatient Protocol [id number] 50-300-40 MG per capsule 1 capsule 1 capsule, Oral, EVERY 4 HOURS PRN, Starting on Wed10/06/23 at 0034, Until Discontinued, Headaches, Maximum dose of acetaminophen is 4000 mg from all sources in 24 hours. 1152 (Given - Provider: Yvette Alatorre RN)1552 (Given - Provider: Yvette Alatorre RN)2209 (Given - Provider: Dennis Bustos RN) 0844 (Given - Provider: Brenda Martinez RN) iopamidol (ISOVUE-370) 76 % injection 75 mL (COMPLETED) 75 mL, IntraVENous, IMG ONCE PRN, 1 dose, Starting on Wed10/05/23 at 2133, Until Wed10/05/23 at 2153, Other 215 (Given - Provider: Mavis Marcum) LORazepam (ATIVAN) tablet 0.5 mg 0.5 mg, Oral, 3 TIMES DAILY PRN, Starting on Wed10/06/23 at 0034, Until Discontinued, Anxiety 0056 (Given - Provider: Tevin Gauthier, RN)1043 (Given - Provider: Yvette Alatorre, RN)2022 [...] higher. 0115 (New Bag - Provider: Tevin Gauthier RN)0134 (Stopped - Provider: Tevin Gauthier RN) sodium [...] BE BASED ON THE PRIMARY CLINICAL RECORDS. [employer] [facility]. provides no warranty or guarantee of the accuracy or completeness of information in this document."
--- NOTE | 2024-05-26 20:35 | ED.NEUROSD1 ---
HPI - Neuro Symptoms/Deficit General Chief Complaint: Neuro Symptoms/Deficit Stated Complaint: L SIDE TINGLING Time Seen by Provider: 05/26/24 20:16 Source: patient Mode of arrival: ambulance Limitations: no limitations History of Present Illness HPI Narrative: patient states she had CT scan November of this year and was found to have aneurysm. States she was told they were too large to intervene. She did not follow up with Neurology. Has past history of headaches. States this AM around 9AM she woke up with left sided headache and pressure. States it did go away. States tonight around 7:30pm while sitting the headache returned. She got up to walk and her left leg was numb and clumsy. Did not go where she wanted it to go. left arm tingly also but not weak. States vision was blurry but has improved. History of heart disease. Past ID and has AICD in place. No fever. her leg feels better now. Patient able to stand without difficulty but states when walking feels like her left leg want to bow in Related Data Home Medications ?Medication ?Instructions ?Recorded ?Confirmed atorvastatin 80 mg tablet 80 mg PO .QHS 03/18/23 05/27/24 isosorbide mononitrate 30 mg 30 mg PO DAILY 03/18/23 05/26/24 tablet,extended release 24 hr levothyroxine 75 mcg tablet 75 mcg PO DAILY 03/18/23 05/26/24 nitroglycerin 0.4 mg sublingual 0.4 mg sublingual Q5M PRN chest 03/18/23 05/26/24 tablet pain omeprazole 40 mg capsule,delayed 40 mg PO DAILY 03/18/23 05/26/24 release trazodone 50 mg tablet 50 mg PO QPM 03/18/23 05/26/24 warfarin 5 mg tablet 5 mg PO DAILY 03/18/23 05/26/24 albuterol sulfate 90 mcg/actuation 1 puff inhalation Q6H PRN SOB 05/07/23 05/26/24 aerosol inhaler pwxwnabjvt-fgbcpicoolliy-yxabgsld 1 cap PO Q4H PRN headache 05/07/23 05/26/24 50 mg-300 mg-40 mg capsule (Fioricet) metoprolol succinate 100 mg 100 mg PO .qhs 05/07/23 05/27/24 tablet,extended release 24 hr hydroxyzine HCl 10 mg tablet 10 mg PO TID PRN anxiety 04/27/24 05/27/24 olanzapine 2.5 mg tablet 5 mg PO .QHS 04/27/24 05/27/24 sertraline 50 mg tablet 50 mg PO DAILY 04/27/24 05/27/24 lorazepam 0.5 mg tablet 0.5 mg PO DAILY PRN anxiety 05/27/24 05/27/24 ropinirole 0.25 mg tablet 0.25 mg PO QPM 05/27/24 05/27/24 ropinirole 0.25 mg tablet 0.5 mg PO .qhs 05/27/24 05/27/24 torsemide 20 mg tablet 20 mg PO BIDWM 05/27/24 05/27/24 Previous Rx's ?Medication ?Instructions ?Recorded amiodarone 200 mg tablet (Pacerone) 200 mg PO QD #30 tabs 05/20/23 methocarbamol 750 mg tablet 750 mg PO TID PRN pain #20 tabs 05/23/24 potassium chloride 20 mEq 20 meq PO BID #0 tabs 05/28/24 tablet,extended release(part/cryst) topiramate 25 mg tablet (Topamax) 25 mg PO BID #60 tabs 05/28/24 Allergies Allergy/AdvReac Type Severity Reaction Status Date / Time erythromycin base Allergy Unknown Unknown Verified 05/26/24 19:58 ondansetron [From Zofran] AdvReac tachycardia Verified 05/26/24 19:58 Review of Systems ROS Status of ROS 10 or more systems reviewed and unremarkable except as noted in history and below [facility] Medical History (Updated 05/27/24 @ 11:49 by Shaikh Crystal MD) Non compliance w medication regimen ?Z91.148 - Patient's other noncompliance with medication regimen for other reason (ICD-10) On Coumadin for atrial fibrillation ?I48.91 - Unspecified atrial fibrillation (ICD-10) ?Z79.01 - nursing home (current) use of anticoagulants (ICD-10) Tension headache ?G44.209 - Tension-type headache, unspecified, not intractable (ICD-10) Chronic wound of head ?S01.90XA - Unspecified open wound of unspecified part of head, initial encounter (ICD-10) Heat exhaustion ?T67.5XXA - Heat exhaustion, unspecified, initial encounter (ICD-10) Headache ?R51.9 - Headache, unspecified (ICD-10) Abscess of skin or subcutaneous tissue ?L02.91 - Cutaneous abscess, unspecified (ICD-10) Other medical devices associated with adverse incidents ?Y82.8 - Other medical devices associated with adverse incidents (ICD-10) Anxiety ?F41.9 - Anxiety disorder, unspecified (ICD-10) Chest pain ?R07.9 - Chest pain, unspecified (ICD-10) Infection of scalp ?L08.9 - Local infection of the skin and subcutaneous tissue, unspecified (ICD-10) Ankle sprain ?S93.409A - Sprain of unspecified ligament of unspecified ankle, initial encounter (ICD-10) Generalized anxiety disorder ?F41.1 - Generalized anxiety disorder (ICD-10) Lactic acidosis ?E87.20 - Acidosis, unspecified (ICD-10) Fluid overload ?E87.70 - Fluid overload, unspecified (ICD-10) Nausea ?R11.0 - Nausea (ICD-10) Generalized weakness ?R53.1 - Weakness (ICD-10) ANTONINA (generalized anxiety disorder) ?F41.1 - Generalized anxiety disorder (ICD-10) RLS (restless legs syndrome) ?G25.81 - Restless legs syndrome (ICD-10) Hypothyroid ?E03.9 - Hypothyroidism, unspecified (ICD-10) Hyperlipidemia ?E78.5 - Hyperlipidemia, unspecified (ICD-10) CAD (coronary artery disease) ?I25.10 - Atherosclerotic heart disease of [place] coronary artery without angina pectoris (ICD-10) Paroxysmal atrial fibrillation ?I48.0 - Paroxysmal atrial fibrillation (ICD-10) Chronic HFrEF (heart failure with reduced ejection fraction) ?I50.22 - Chronic systolic (congestive) heart failure (ICD-10) Hypertension ?I10 - Essential (primary) hypertension (ICD-10) Rheumatic fever ?I00 - Rheumatic fever without heart involvement (ICD-10) Pacemaker ?Z95.0 - Presence of cardiac pacemaker (ICD-10) Myocardial infarct, old ?I25.2 - Old myocardial infarction (ICD-10) Multifocal pneumonia ?J18.9 - Pneumonia, unspecified organism (ICD-10) CHF (congestive heart failure) ?I50.9 - Heart failure, unspecified (ICD-10) Acute torticollis ?M43.6 - Torticollis (ICD-10) Fracture of head of humerus with routine healing ?S42.293D - Other displaced fracture of upper end of unspecified humerus, subsequent encounter for fracture with routine healing (ICD-10) Closed head injury ?S09.90XA - Unspecified injury of head, initial encounter (ICD-10) Fall from chair ?W07.XXXA - Fall from chair, initial encounter (ICD-10) Surgical History History of hysterectomy ?Z90.710 - Acquired absence of both cervix and uterus (ICD-10) Mitral valve replaced ?Z95.2 - Presence of prosthetic heart valve (ICD-10) Family History Grandmother Family history of CHF (congestive heart failure) Family history of cancer Family history of hypertension Father Family history of COPD (chronic obstructive pulmonary disease) Family history of cancer Family history of diabetes mellitus Family history of hypertension Sister Family history of COPD (chronic obstructive pulmonary disease) Mother Family history of cancer Family history of hypertension Family history of myocardial infarction Family history of stroke Brother Family history of cancer Grandfather Family history of cancer Social History Within the past year, how often did you have a drink containing alcohol: never Score interpretation: A score less than 3 is consistent with normal alcohol consumption. Smoking status: Former smoker Non-prescribed substance use: denies use Little interest or pleasure in doing things: not at all Feeling down, depressed, or hopeless: not at all Exam Constitutional Vital Signs, click to edit/add: Last Vital Signs Temp 97.5 F L 05/28/24 08:00 Pulse 80 05/28/24 10:00 Resp 18 05/28/24 09:17 BP 145/100 H 05/28/24 09:19 Pulse Ox 99 05/28/24 11:34 O2 Del Method Room Air 05/28/24 11:34 Common normals: no apparent distress, average body habitus, oriented x3, no limitations, healthy appearing, alert and well nourished [facility] Common normals: normocephalic and head/scalp atraumatic Eye Common normals: PERRL, EOMs intact bilaterally and conjunctivae normal Respiratory Common normals: normal respiratory effort, no retractions, no use of accessory muscles and clear to auscultation bilaterally Cardio Common normals: regular rate, regular rhythm, S1 normal heart sound and S2 normal heart sound GI Common normals: Normal to inspection, nondistended, normoactive bowel sounds present, soft to palpation and non-tender Extremity Common normals: normal to inspection and full ROM Neuro Common normals: oriented x3, CN's II-XII intact bilaterally, moves all extremities, no focal motor deficits and no sensory deficits noted Psych Appearance: grossly normal Course Course Hospital Course: 53y o female with hx of migraine headache, CAD, HFrEF, Parox Afib presented to ED for numbness/tingling in UE and LE, blurred vision and poor balance/unsteady gait. He symptoms were associated with severe retro orbital pain and occipital headache. Patients neurological symptoms resolved by the time she had CTH but her HASKINS persisted until the next morning when she received migraine cocktail (Iv Benadryl, Phenergan and Toradol). Tele stroke was consulted and their impression was that her neurological symptoms were likely due to Acute migraine but given her risk factors, it was felt necessary to r/o acute ischemic stroke as the underlying etiology of her presenting illness. She had CTA Head/neck that revealed small 4mm aneurysm in Left ICA but otherwise no significant or acute findings were noted on CTA. Since she has AICD, MRI could not be performed as our MRI is not compatible with her AICD. This was d/w Tele stroke and they were ok with an outpatient MRI. Upon arrival, patient also had very low potassium 2.4 and required supplementation for it. Her IV access infiltrated during the course of admission and she had RUE swelling and pain because of it. This was treated conservatively with cold compresses/arm elevation. Her INR while on Coumadin was sub therapeutic. She was started back on Coumadin and was ordered to receive Lovenox. She refused to take it. She will need f/u with Coumadin clinic as outpatient. Patient is medically stable for discharge. She has no neurological signs and symptoms. Her HASKINS is also now gone. She will need close f/u as outpatient for her chronic medical conditions. Vital Signs Vital signs: Vital Signs Temperature 98.2 F 09/27/24 19:58 Pulse Rate 85 05/26/24 19:58 Respiratory Rate 14 05/26/24 19:58 Blood Pressure 153/69 H 05/26/24 19:58 Oxygen Delivery Method Room Air 05/26/24 19:58 Temperature 97.5 F L 05/28/24 08:00 Pulse Rate 80 05/28/24 10:00 Respiratory Rate 18 05/28/24 09:17 Blood Pressure 145/100 H 05/28/24 09:19 Pulse Oximetry 99 05/28/24 11:34 Oxygen Delivery Method Room Air 05/28/24 11:34 MDM - Neuro Symptoms/Deficit MDM Narrative Medical decision making narrative: Patient has past history of cerebral aneusym. 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 patient presents complaining of left sided numbness of her leg and difficulty walking . exam with ataxia of the left lower extremity. Able to perform F-N left upper extremity but complains mild blurring of vision left eye patient re examined and vision is clear and left arm no longer tingling. Not able to perform heel-house LLE discussed with [facility] Stroke Neurolog[facility] who does not recommend TPA. recommends CTA brain and neck. Patient is on coumadin s/p MVR CTA brain and carotid ordered. Nursing after multiple attempts finally got an IV suitable for angio CT but it came out while she was in CT . She is re examined and now her exam is normal. Able to perform Heel to house with left leg. NIH score 0. Discussed with [facility] neurologist and will plan obs admission . Neurologist believes her symptoms may be related to complicated migraine. Recommends MRI tomorrow Lab Data Labs: Lab Results 05/26/24 05/26/24 Range/Units 20:34 21:20 WBC 12.0 H (4.0-11.0) 10^3/uL RBC 5.40 (4.20-5.40) 10^6/uL Hgb 10.6 L (12.0-16.0) g/dL Hct 36.2 (36.0-48.0) % MCV 67.0 L (81.0-99.0) fL MCH 19.6 L (26.7-34.0) pg MCHC 29.3 L (29.9-35.2) g/dL RDW 23.1 H (11.0-15.0) % Plt Count 260 (150-450) 10^3/uL Neut % (Auto) 72.3 (43.0-75.0) % Lymph % (Auto) 13.3 L (20.5-60.0) % [place] % (Auto) 10.9 (1.7-12.0) % Eos % (Auto) 1.9 (0.9-7.0) % Baso % (Auto) 1.3 (0.2-2.0) % Neut # (Auto) 8.7 H (1.4-6.5) 10^3/uL Lymph # (Auto) 1.6 (1.2-3.8) 10^3/uL [place] # (Auto) 1.3 H (0.3-0.8) 10^3/uL Eos # (Auto) 0.2 (0.0-0.7) 10^3/uL Baso # (Auto) 0.2 H (0.0-0.1) 10^3/uL Abs Immat Gran (auto) 0.03 (0.00-0.03) 10^3/uL Imm/Tot Granulo (auto) 0.3 (0.0-0.5) % PT 10.8 (9.0-11.6) sec INR 1.02 Sodium 145 (136-145) mmol/L Potassium 2.4 L* (3.5-5.1) mmol/L Chloride 97 L (98-107) mmol/L Carbon Dioxide 24.4 (21.0-32.0) mmol/L Anion Gap 26.0 BUN 11.0 (7.0-18.0) mg/dL Creatinine 0.98 (0.55-1.02) mg/dL Est GFR ( Amer) >60 (>=60) Est GFR (Non-Af Amer) 59 L (>=60) BUN/Creatinine Ratio 11.2 Glucose 127 H (74-106) mg/dL Calcium 8.3 L (8.5-10.1) mg/dL Troponin I High Sens 21.3 (4.0-51.3) pg/mL Discharge Plan Discharge Chief Complaint: Neuro Symptoms/Deficit Clinical Impression: Headache, TIA (transient ischemic attack) Patient Disposition: Admitted As Inpatient Discharge Date/Time: 05/27/24 00:54
[2024-05-26 20:50] VITALS: BP 142/71; PULSE 80; O2SAT 96
--- NOTE | 2024-05-26 20:53 | XR_ITS ---
The [place] [id number] Patient Name: HORACIO LOMBARDI MRN: [id number] date: 1970 Sex: F Assigned Patient Location: ER Current Patient Location: ER Accession/Order Number: [id number] Exam Date: 05/26/2024 21:00 Report Date: 05/26/2024 21:51 At the request of: SUSAN RICKETTS Procedure: XR chest 1V ONE-VIEW CHEST RADIOGRAPH, 05/26/2024 9:00 PM EDT COMPARISON: Chest, 02/18/2024. CLINICAL HISTORY: TIA Findings and impression: 1. Minimal atelectasis in the left lung base suspected. 2. Cardiomegaly with evidence of TAVR and open heart surgery. Pacing leads in stable position. 3. Old fracture deformity of the right lateral humeral head and neck. The bones are demineralized. No acute osseous abnormality. Electronically authenticated by: Tanja RUIZ Date: 05/26/2024 21:51
--- NOTE | 2024-05-26 20:53 | ECG_ITS ---
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: : 1970 Requested By: Amanda Grace Order Number: [id number] Reading MD: OLIVA OLIVIER Measurements Intervals Steele Rate: 89 P: 85 TX: 222 QRS: -35 QRSD: 116 T: 125 QT: 342 QTc: 388 Interpretive Statements 1100 Sinus rhythm 87903 Cannot rule out atrial flutter 1470 with occasional supraventricular premature complexes 2231 First degree AV block 90507 Inferior myocardial infarction with posterior extension, age undetermined [address] depression, possible subendocardial injury 4364 Twave abnormality, possible anterolateral ischemia 9150 abnormal ECG Compared to ECG 02/17/2024 22:57:00 First degree AV block now present Myocardial infarct finding now present ST (T wave) deviation now present Possible ischemia now presentVentricular-paced complex(es) or rhythm no longer present Electronically Signed On 05-28-2024 7:45:31 EDT by OLIVA OLIVIER
--- NOTE | 2024-05-26 20:53 | CT_ITS ---
The [address] [address] Patient Name: HORACIO LOMBARDI MRN: [id number] date: 1970 Sex: F Assigned Patient Location: ER Current Patient Location: ER Accession/Order Number: [id number] Exam Date: 05/26/2024 21:00 Report Date: 05/26/2024 21:30 At the request of: SUSNA HAQUE Procedure: CT stroke head/brain wo con EXAM: CT stroke head/brain wo con HISTORY: left sided weakness. Past history of aneurysm INDICATION: 53 years old; Female. TECHNIQUE: CT Head (ax/cor/sag reformats). Ionizing radiation dose reduced via iterative reconstruction/FBP blend and body size kV/mA adjustment. Comparison: None FINDINGS: POSTOPERATIVE CHANGES: None. BRAIN PARENCHYMA: No intraparenchymal or extra-axial hemorrhage. No mass effect. No midline shift or herniation. Patchy low-density in the white matter without mass effect. VENTRICLES/EXTRA-AXIAL SPACES: Enlarged, consistent with atrophy. SINUSES/MASTOIDS: The visualized sinuses are clear although the paranasal sinuses are not completely included. Mastoids and middle ears are clear. MSK: No displaced or depressed calvarial fracture. OTHER: No hyperdense intraluminal thrombus is present. CT/CT stroke head/brain wo con IMPRESSION: 1. No acute intracranial abnormality. No hemorrhage or mass effect. If there is concern for acute infarction, then MRI including diffusion imaging would be recommended for further evaluation. A telephone call regarding the findings in examination was made to and acknowledged by Dr. Haque in the emergency department at 9:30 PM on 05/26/2024. Electronically authenticated by: KELSEY LOMAS Date: 05/26/2024 21:30
[2024-05-26] MEDS: MAGNESIUM SULFATE IN WATER 2 GM/50 ML PREMIX IV (21:02)
[2024-05-26 21:14] LABS: BUN Creatinine Ratio 11.2; Calcium 8.3 mg/dL (8.5-10.1); Carbon Dioxide 24.4 mmol/L (21.0-32.0); Chloride 97 mmol/L (98-107); Estimated GFR (African America >60 (>=60); Estimated GFR (Non-African Ame 59 (>=60); Glucose 127 mg/dL (74-106); Sodium 145 mmol/L (136-145)
[2024-05-26 21:19] LABS: Troponin I High Sensitivity 21.3 pg/mL (4.0-51.3)
[2024-05-26 21:22] LABS: Potassium 2.4 mmol/L (3.5-5.1)
[2024-05-26] MEDS: 0.9 % SODIUM CHLORIDE 250 ML 50 ML IRR (21:35)
[2024-05-26 21:41] LABS: Basophils Absolute Auto 0.2 10^3/uL (0.0-0.1); Basophils Percent Auto 1.3 % (0.2-2.0); Eosinophils Absolute Auto 0.2 10^3/uL (0.0-0.7); Eosinophils Percent Auto 1.9 % (0.9-7.0); Hematocrit 36.2 % (36.0-48.0); Hemoglobin 10.6 g/dL (12.0-16.0); Immature Granulocytes Abs Auto 0.03 10^3/uL (0.00-0.03); Immature Granulocytes Pct Auto 0.3 % (0.0-0.5); Lymphocytes Absolute Auto 1.6 10^3/uL (1.2-3.8); Lymphocytes Percent Auto 13.3 % (20.5-60.0); Mean Corpuscular HGB Conc 29.3 g/dL (29.9-35.2); Mean Corpuscular Hemoglobin 19.6 pg (26.7-34.0); Monocytes Absolute Auto 1.3 10^3/uL (0.3-0.8); Monocytes Percent Auto 10.9 % (1.7-12.0); Neutrophils Absolute Auto 8.7 10^3/uL (1.4-6.5); Neutrophils Percent Auto 72.3 % (43.0-75.0); Platelet Count 260 10^3/uL (150-450); Red Cell Distribution Width 23.1 % (11.0-15.0)
[2024-05-26 21:43] LABS: INR 1.02; Prothrombin Time 10.8 sec (9.0-11.6)
[2024-05-26] MEDS: CEFTRIAXONE 1,000 MG in 0.9 % SODIUM CHLORIDE 50 ML 100 MG IV (22:12)
[2024-05-26] MEDS: POTASSIUM CHLORIDE 10 MEQ ER TABLET 40 MEQ PO (22:14)
[2024-05-27] VITALS (21 sets, daily range): BP systolic 126–144; BP diastolic 71–94; PULSE 74–90; TEMP 36.2–36.6; O2SAT 96–99; BMI 29.7; BMI 31.5
[2024-05-27] MEDS: METHYLPREDNISOLONE SOD SUCC PF 125 MG/2 ML VIAL IVP (00:16)
--- OUTSIDE RECORDS SUMMARY | 2024-05-27 01:35 | XMS_ITS | CCD ---
Author Organization [facility] Care Team Providers Care Adjunct Psychology Instructor Name Role Phone MAYRA, MARGARETH Admitting Unavailable [...] Primary Care Unavailable Darian Smiley Attending Provider [phone] Robe Alonso Primary Care Provider Robe Alonso Admit Provider Robe Alonso Attending Provider [phone] Darian Smiley Attending Provider Robe Alonso Primary Care Provider [phone] Robe Alonso Admit Provider Robe Alonso Attending Provider Unavailable Unavailable PROVIDER, UNKNOWN Attending Unavailable PROVIDER, UNKNOWN Admitting Unavailable PATIENT, SELF Referring Unavailable None, No PCP Unavailable Unavailable Robe Alonso Primary Care Provider Nadir Hoskins Unavailable Margareth Nunez Unavailable Violeta Chan MD Unavailable Dustin CLAY, Violeta Unavailable Jeane Dykes Unavailable DO Darian Smiley Attending Provider MD Robe Alonso Primary Care Provider MD Robe Alonso Attending Provider MD Robe Alonso Referring Provider [phone] DO Hira Lay [facility] MD Ken Segovia Admit Provider MD Ken Rizo Attending Provider Robe Alonso Primary Care Provider Nadir Hoskins Unavailable Margareth Nunez Unavailable Violeta Chan MD Unavailable Dustin CLAY, Violeta Unavailable DO Darian Smiley Attending Provider Shaikh Rojas Unavailable Robe Alonso Primary Care Provider Nadir Hoskins Unavailable [phone] Margareth Nunez MD Unavailable Robe Alonso Primary Care Provider Nadir Hoskins Unavailable Mayra CLAY, Margareth Bullard Unavailable Dustin CLAY Violeta Unavailable [phone] Dustin CLAY, Violeta Unavailable Cuevas DMD, [...] CORIE, DR Juan Miguel Gamez Consulting Unavailable [place], DR Juan Miguel Gamez Attending Unavailable [place], DR Juan Miguel Gamez Admitting Unavailable SHAIKH ROJAS H Primary Care Unavailable SHELLY, DR JC Car Consulting Unavailable Nadir Hoskins DO Unavailable Dustin CLAY, Violeta Unavailable [phone] Dustin CLAY, Violeta Unavailable [phone] Amanda Grace Unavailable MD Margareth Nunez Attending Provider PETE Grace Primary Care Provider Crystal CLAY, Primary Care Provider [phone] Bianca OCEANOLOGIST-OPERATIONS CLERK, Jameel E Unavailable Mayra CLAY, Margareth Bullard Unavailable Liam Hyman MD Primary Care Provider [phone] Mayra Chang, Margareth Referring Unavailable Mayra Chang, Margareth Attending Unavailable NILL, Arjun R Attending Unavailable NILL, Arjun R Attending Unavailable NILL, Arjun Car Attending Unavailable Unavailable Primary Care Provider UnavailLiam Xiong MD Primary Care Provider TRACEY, SWAPNIL Referring Unavailable LIAM HYMAN Primary Care Unavailable TRACEY, SWAPNIL Referring Unavailable LIAM HYAMN Primary Care Unavailable TRACEY, SWAPNIL Admitting Unavailable TRACEY, SWAPNIL Attending Unavailable VINCENT GARZA Consulting UnavailAJAY Negrete Consulting Unavailable LIAM HYMAN Primary Care Unavailable PEDRO BLAS Referring Unavailable MD Tanner Mae Jr Emergency Provider MD Karen Garner Primary Care Provider DO Pedro Melo Emergency Provider [phone] PETE Grace Primary Care Provider MD Kendrick Jorgensen Admit Provider MD Kendrick Jorgensen Attending Provider MD Patrica Mcmahon Attending Provider [phone] Karen Garner Primary Care Unavailable Tanner Mae [...] Tape Substance Allergy 11-24-19 21 Unknown Reaction [facility] Ondansetron (1 source) Ondansetron Drug Allergy 11-24-19 21 Agitated [facility] (2 sources) fentaNYL Drug Allergy 11-24-19 21 Palpitations, Unknown Reaction [facility] (20 sources) Adhesive Tape; Translations: [adhesive tape] Propensity to adverse reactions 08-16-20 20 Unknown Reaction, Redness of Skin [facility] (20 sources) fentaNYL; Translations: [fentanyl] Drug Allergy 09-21-19 20 Headache, Other [facility] (20 sources) Morphine; Translations: [morphine] Drug Allergy 04-26-20 12 Vomiting, GI intolerance, Nausea/vomiting , Nausea And Vomiting [facility] (19 sources) Ondansetron; Translations: [ONDANSETRON] Drug Allergy 09-21-19 20 Agitated [facility] Repository (20 sources) erythromycin base; Translations: [Erythromycin Base] Allergy to substance 07-08-20 04 Other: See Comments [facility] (20 sources) Erythromycin; Translations: [erythromycin] Drug Allergy 06-05-20 02 Nausea Only, Unknown, Nausea/vomiting [facility] (20 sources) levoFLOXacin; Translations: [Levaquin] Drug Allergy 08-31-19 24 Other, Palpitations [facility] [employer] 250 DO Work Phone: (20 sources) Ondansetron; Translations: [Zofran] Drug Allergy Irritability [facility] Repository (20 sources) varenicline; Translations: [Chantix TABS] Drug Allergy 08-31-19 Other, Unknown [facility] [employer] 250 DO Work Phone: (20 sources) Adhesive Tape Propensity to adverse reactions to substance 07-08-20 12 Rash [facility] (20 sources) Ondansetron Drug Allergy 10-13-19 19 Intolerance, Other [facility] (20 sources) Latex; Translations: [LATEX] Drug allergy 11-11-19 24 Unknown, Hives [facility] (5 sources) Adhesive Tape-Silicones; Translations: [ADHESIVE TAPE-SILICONES] Drug Allergy 08-31-19 24 Other [facility] (3 sources) Azithromycin Drug Allergy 10-05-19 24 [facility] (1 source) Latex Drug allergy (disorder) 03-29-20 24 [facility] Repository (2 sources) levoFLOXacin; Translations: [LEVOFLOXACIN] Drug Allergy 08-31-19 24 [facility] Repository (2 sources) Ondansetron; Translations: [ONDANSETRON HCL] Drug Allergy 08-31-19 24 [facility] Repository (2 sources) varenicline; Translations: [VARENICLINE] Drug Allergy 08-31-19 [facility] Repository Medications Current Medications Medication Drug [...] 1 capsule by mouth every four hours Mggwuxeryk-Paejsctxfehzw-Ujwj (Fioricet) 50-300-40 mg capsule Active 1 CAP PO Every 4 hours February 17, 2024 12:15pm Start: 10-07-2023 End: 10-07-2023 take 1 tablet by mouth every four hours as needed for headache vcpedrrnul-rmgtdtopptjjh-vkmsfwzw (CHIDI CET, ESGIC) 50-325-40 MG per tablet [...] take 1 capsule by mouth twice daily Fucajnuaen-Myffwxsyylytf-Yusr (Fioricet) 50-300-40 mg capsule Discontinued 1 CAP PO Twice daily July 19, 2020 1:00am February 17, 2024 12:19pm Start: 06-07-2020 End: 06-15-2020 take 1 tablet by mouth every eight hours Bboggfiqlp-Iwbufekpfqrvl-Adis Discontinu ed 1 TAB PO Q8H June 07, 2020 12:00am June 15, 2020 11:49am Start: 04-26-2020 End: 06-07-2020 take 1 capsule by mouth every eight hours as needed Dbjnsibnfj-Ziimblpraribd-Lavb (Fioricet) 50-300-40 mg capsule Discontinued 1 CAP PO Q8H April 26, 2020 12:00am June 07, 2020 6:06pm TK ONE C PO Q 8 H PRN Start: 09-01-2019 End: 04-26-2020 take 1 tablet by mouth three times daily Xktvrkhaxx-Iojiptluujjpy-Bxff Discontinu ed 1 TAB PO Three times daily 0 September 01, 2019 1:00am April 26, 2020 2:48pm [id number] 200 actuat albuterol 0.09 mg/actuat metered dose [...] Active take 1 capsule by mo [facility] every twelve hours Potassium Chloride ER [...] 3:22pm take 3 tablets by mo [facility] once daily rOPINIRole (REQUIP) 0.25 MG [...] on above: Take 2 tablets by mo [facility] once daily. traZODone hydrochloride 50 mg [...] mg Start: 10-01-2023 take 1 tablet by auugsto once daily warfarin (Coumadin) 5 mg tablet [...] 5 MG Oral Tablet as directed per [facility] Coumadin clinic Quantity: 0 Refills: 0 Ordered: 31-Dec-2021 DO Active Warfarin 2mg 2 m g as directed orally Active Warfarin Sodium 5 MG Oral Tablet as directed per [facility] Coumadin clinic Quantity: 0 Refills: 0 Ordered: 20-Oct-2021 DO Active Comment on above: Take 1 tablet by [facility] once daily. warfarin placeholder: dosing by pharmacy [...] 1 tablet by mouth once daily Hydrocodone-Acetaminophen ([place]) 5-325 mg Tablet Discontinued 1 TAB PO [...] Discontinued Start: 07-13-2023 take 1 capsule by [facility] once daily FLUoxetine (PROzac) 40 mg capsule [...] Quantity: 90 Refills: 3 Ordered: 24-Apr-2022 Margareth Nuenz MD Active metroNIDAZOLE 500 mg oral tablet [...] myocardial infarction; Translations: [Atherosclerotic heart disease of [place] coronary artery without angina pectoris] Onset: 8 [...] 2 06-23-2017 Chronic Other aftercare (1 source) manager 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 Onset: 9 Episodic Other aftercare (19 sources) Drug therapy finding; Translations: [Long-term (current) use of other medications] Episodic Other aftercare (17 sources) Encounter for therapeutic drug level monitoring; Translations: [Medication monitoring encounter Z51.81] Onset: 1 Resolved: 2 Episodic Other aftercare (1 source) [facility] (current) use of anticoagulants; 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: [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] Onset: 3 Episodic Other aftercare (3 sources) Other senior care (current) drug therapy; Translations: [OTH RESIDENTIAL CURRENT DRUG THERAPY] Onset: 2 Episodic Other aftercare (11 sources) Anticoagulant effect; Translations: [manager terminal (current) use of anticoagulants] 11-11-2023 Episodic Other [...] 32.0-32.9, adult Onset: 9 Unclassified (1 source) [facility] terminal (current) use of anticoagulants Onset: 8 Unclassified (1 source) Other nonrheumatic aortic valve disorders Onset: 8 Unclassified (1 source) Athscl heart disease of [place]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 ang pctrs Onset: 9 Unclassified (1 source) Unspecified convulsions Onset: 9 Unclassified (1 source) [facility] (current) use of antithrombotics/antipl atelets Onset: 8 [...] Russell on 03-30-2024 Acanthocytes LM Ql (Bld) [facility] Activated partial thrombopla stin time (aPTT) in platelet poor plasma by coagulation aOrdered By: Pedro Melo on 03-30-2024 aPTT Coag (PPP) [Time] 25.3 s 25.1-36.5 [facility] Comment on above: A hematocrit value g reater than 55% may lead to inaccurate results in coagulation testing. Patients having hematocrit values >55% require a special collection tube for coagulation studies. Please contact the laboratory at [phone] for redraw instructions. Amphetamine Screen Ql (U)Ord ered By: Pedro Melo on 03-30-2024 Amphetamines Ql (U) Negative Negative [facility] Anisocytosis [Presence] in B lood by Light microscopyOrdered By: Kristyn Russell on 03-30-2024 Anisocytosis Ql (Bld) Marked Normal [facility] Comment on above: Performed By: #### C K, BNP, HS TROP, PTT, PT #### [address] Anisocytosis [Presence] in B lood by Light microscopyOrdered By: Pedro Melo on 03-30-2024 Anisocytosis Ql (Bld) Marked Normal [facility] Comment on above: Performed By: #### C K, BNP, HS TROP, PTT, PT #### [address] Automated basophil %Ordered By: Kristyn Russell on 03-30-2024 Basophils/100 WBC (Bld) 1.5 % Normal . [facility] Comment on above: Performed By: #### C K, BNP, HS TROP, PTT, PT #### [address] Automated basophil countOrde red By: Kristyn Russell on 03-30-2024 Basophils (Bld) [#/Vol] 0.2 10*3/uL Normal 0.0-0.2 [facility] Comment on above: Performed By: #### C K, BNP, HS TROP, PTT, PT #### [place] [address] [place] Automated blood monocyte cou ntOrdered By: Kristyn Russell on 03-30-2024 Monocytes (Bld) [#/Vol] 1.0 10*3/uL High 0.0-0.8 [facility] Comment on above: Performed By: #### C K, BNP, HS TROP, PTT, PT #### [address] Automated eosinophil %Ordere d By: Kristyn Russell on 03-30-2024 Eosinophils/100 WBC (Bld) 0.6 % Normal . [facility] Comment on above: Performed By: #### C K, BNP, HS TROP, PTT, PT #### [address] Automated eosinophil countOr dered By: Kristyn Russell on 03-30-2024 Eosinophils (Bld) [#/Vol] 0.1 10*3/uL Normal 0.0-0.45 [facility] Comment on above: Performed By: #### C K, BNP, HS TROP, PTT, PT #### [address] Automated monocyte %Ordered By: Kristyn Russell on 03-30-2024 Monocytes/100 WBC (Bld) 8.7 % Normal . [facility] Comment on above: Performed By: #### C K, BNP, HS TROP, PTT, PT #### [address] Automated neutrophil %Ordere d By: Kristyn Russell on 03-30-2024 Neutrophils/100 WBC (Bld) 74.8 % Normal . [facility] Comment on above: Performed By: #### C K, BNP, HS TROP, PTT, PT #### [address] BNP ser/plasOrdered By: Isai Melo on 03-30-2024 Natriuretic peptide B (Bld) [Mass/Vol] 256.0 pg/mL High 5-100 [facility] Comment on above: Result Comment: PERF ORMED BY: [place] [address] PATHOLOGIST MANAGER CAREER LILIANA CLAY M.D. Performed By: #### C K, BNP, HS TROP, PTT, PT #### [address] Bacteria [Presence] in Urine by AutomatedOrdered By: Pedro Melo on 03-30-2024 Bacteria Auto Ql (U) 2+ [HPF] High None Seen [facility] Barbiturates [Presence] in U rine by Screen methodOrdered By: Pedro Melo on 03-30-2024 Barbiturates Screen Ql (U) Positive High Negative [facility] Basic Metabolic Panelon Creatinine Clr Calc Pharmacy 62.62 Normal [facility] Comment on above: Performed By: #### M G, TSH3, FE and TIBC, LIPID, SCAN CBC, NEHAL, BMP #### [place] [address] [place] GFR/1.73 sq M.predicted MDRD (S/P/Bld) [Vol rate/Area] mL/min/{1.73_m2} Normal [facility] Comment on above: Performed By: #### M G, TSH3, FE and TIBC, LIPID, SCAN CBC, NEHAL, BMP #### [place] [address] [place] Creatinine Clr Calc Pharmacy 58.60 Normal [facility] Comment on above: Result Comment: PERF ORMED BY: [place] [address] PATHOLOGIST MANAGER CAREER LILIANA CLAY M.D. Performed By: #### C K, BNP, HS TROP, PTT, PT #### [place] [address] [place] GFR/1.73 sq M.predicted MDRD (S/P/Bld) [Vol rate/Area] mL/min/{1.73_m2} Normal [facility] Comment on above: Performed By: #### C K, BNP, HS TROP, PTT, PT #### [place] [address] [place] Basophils Auto (Bld) [#/Vol] Ordered By: Pedro Melo on 03-30-2024 Basophils (Bld) [#/Vol] N/A [facility] Basophils/100 WBC Auto (Bld) Ordered By: Pedro Melo on 03-30-2024 Basophils/100 WBC (Bld) N/A [facility] Basophils/100 leukocytes in Blood by Manual countOrdered By: Pedro Melo on 03-30-2024 Basophils/100 WBC (Bld) 2 % Normal 0-2 [facility] Comment on above: Performed By: #### C K, BNP, HS TROP, PTT, PT #### [facility] [address] [place] [address] [place] Benzodiazepines Screen Ql (U )Ordered By: Pedro Melo on 03-30-2024 Benzodiazepines Ql (U) Negative Negative [facility] Benzoylecgonine [Presence] i n Urine by Screen methodOrdered By: Pedro Melo on 03-30-2024 Benzoylecgonine Screen Ql (U) Negative Negative [facility] Bilirubin Test strip Ql (U)O rdered By: Pedro Melo on 03-30-2024 Bilirubin Ql (U) Negative Negative [facility] Preston cells [Presence] in Blo od by Light microscopyOrdered By: Kristyn Russell on 03-30-2024 Jonah cells LM Ql (Bld) Slight [facility] CT head/brain wo conon 03-30 CT head/brain wo con [facility] [place] [address] [place] [address] CT Scan Report Signed Patient: Essence Vincent MR#: [id number] : 1970 Acct:[id number] Age/Sex: 53 / F ADM Date: 03/30/24 Loc: Room: [address] [place] [address] Type: ADM INOo Attending Dr: Patrica Mcmahon [...] Bliss Jr., D.OTarun03/30/2024 3:32 PM Dictation Location: [place] [address] Transcribed By: [facility] 03/30/24 1532 Dictated By: Sy Bliss Jr, DO 03/30/24 1531 Signed By: 03/30/24 1532 Normal [facility] Calcium [Mass/volume] in Ser um or PlasmaOrdered By: Kristyn Russell on 03-30-2024 Calcium [Mass/Vol] 8.8 mg/dL Normal 8.6-10.[address] [facility] Comment on above: Performed By: #### M G, TSH3, FE and TIBC, LIPID, SCAN CBC, NEHAL, BMP #### [facility] [address] Calcium [Mass/volume] in Ser um or PlasmaOrdered By: Pedro Melo on 03-30-2024 Calcium [Mass/Vol] 8.8 mg/dL Normal 8.6-10.[address] [facility] Comment on above: Performed By: #### C K, BNP, HS TROP, PTT, PT #### [facility] [address] [place] [address] [place] Cannabinoids [Presence] in U rine by Screen methodOrdered By: Pedro Melo on 03-30-2024 Cannabinoids Screen Ql (U) Positive High Negative [facility] Comment on above: These are unconfirme d results and should not be used for legal purposes. Drug Cut-Off Concentration: AMPH 1000 ng/mL ALESSANDRO 200 ng/mL RHINA 200 ng/mL COCM 300 ng/mL OP 300 ng/mL PCP 25 ng/mL THC 20 ng/mL Carbon dioxide, total [Moles /volume] in Serum or PlasmaOrdered By: Kristyn Russell on 03-30-2024 CO2 [Moles/Vol] 24.4 mmol/L Normal 21.0-31.0 [facility] Comment on above: Performed By: #### M G, TSH3, FE and TIBC, LIPID, SCAN CBC, NEHAL, BMP #### [facility] [address] [place] [address] [place] Carbon dioxide, total [Moles /volume] in Serum or PlasmaOrdered By: Pedro Melo on 03-30-2024 CO2 [Moles/Vol] 24.9 mmol/L Normal 21.0-31.0 [facility] Comment on above: Performed By: #### C K, BNP, HS TROP, PTT, PT #### [facility] [address] [place] [address] [place] Chloride [Moles/volume] in S daisy or PlasmaOrdered By: Kristyn Russell on 03-30-2024 Chloride [Moles/Vol] 103 mmol/L Normal 98-107 [facility] Comment on above: Performed By: #### M G, TSH3, FE and TIBC, LIPID, SCAN CBC, NEHAL, BMP #### [facility] [address] [place] [address] [place] Chloride [Moles/volume] in S daisy or PlasmaOrdered By: Pedro Melo on 03-30-2024 Chloride [Moles/Vol] 103 mmol/L Normal 98-107 [facility] Comment on above: Performed By: #### C K, BNP, HS TROP, PTT, PT #### [facility] [address] [place] [address] [place] Cholesterol [Mass/volume] in Serum or PlasmaOrdered By: Kristyn Russell on 03-30-2024 Cholesterol [Mass/Vol] 89 mg/dL Low 140-200 [facility] Comment on above: Chol less than 200 m g/dl low riskChol 201-239 mg/dl borderline riskChol 240 mg/dl and greater high risk Result Comment: Chol less than 200 mg/dl low risk Chol 201-239 mg/dl borderline risk Chol 240 mg/dl and greater high risk Performed By: #### C K, BNP, HS TROP, PTT, PT #### [facility] [address] [place] [address] [place] Cholesterol in LDL Calc [Mas s/Vol]Ordered By: Kristyn Russell on 03-30-2024 Cholesterol in LDL [Mass/Vol] 38 mg/dL 0-100 [facility] Comment on above: LDL ATP III CLASSIFI CATIONLDL less than 100 mg/dL OptimalLDL 100-129 mg/dL Near or above optimalLDL 130-159 mg/dL Borderline highLDL 160-189 mg/dL HighLDL greater than 189 mg/dL Very high Cholesterol in VLDL Calc [Ma ss/Vol]Ordered By: Kristyn Russell on 03-30-2024 Cholesterol in VLDL [Mass/Vol] 11 mg/dL [facility] Color of Urine by AutoOrdere d By: Pedro Melo on 03-30-2024 Color (U) Light-yellow Normal Yellow [facility] Comment on above: Order Comment: Name Collection Type:: Clean-Voided Midstream Performed By: #### C K, BNP, HS TROP, PTT, PT #### [facility] [address] [place] [address] [place] Creatine kinase [Enzymatic a ctivity/volume] in Serum or PlasmaOrdered By: Pedro Melo on 03-30-2024 CK [Catalytic activity/Vol] 93 U/L Normal 30-223 [facility] Comment on above: Performed By: #### C K, BNP, HS TROP, PTT, PT #### [facility] [address] [place] [address] [place] Creatinine [Mass/volume] in Serum or PlasmaOrdered By: Kristyn Russell on 03-30-2024 Creatinine [Mass/Vol] 0.99 mg/dL Normal 0.60-1.20 [facility] Comment on above: Performed By: #### M G, TSH3, FE and TIBC, LIPID, SCAN CBC, NEHAL, BMP #### [facility] [address] [place] [address] [place] Creatinine [Mass/volume] in Serum or PlasmaOrdered By: Pedro Melo on 03-30-2024 Creatinine [Mass/Vol] 1.06 mg/dL Normal 0.60-1.20 [facility] Comment on above: Performed By: #### C K, BNP, HS TROP, PTT, PT #### [address] Diff and CBCon 03-30-2024 Giant Platelet Tally 5 /100{WBC} Normal [facility] Comment on above: Performed By: #### C K, BNP, HS TROP, PTT, PT #### [address] Hypochromasia Marked Normal [facility] Comment on above: Performed By: #### C K, BNP, HS TROP, PTT, PT #### [address] Mean Corpuscular HGB Conc 29.8 g/dL Low 32.0-35.0 [facility] Comment on above: Performed By: #### C K, BNP, HS TROP, PTT, PT #### [address] Microcytosis Marked Normal [facility] Comment on above: Performed By: #### C K, BNP, HS TROP, PTT, PT #### [address] Monocytes/100 WBC (Bld) 16.64 % Normal 0.00-20.00 [facility] Comment on above: Performed By: #### C K, BNP, HS TROP, PTT, PT #### [address] Myelocytes 1 % High 0-0 [facility] Comment on above: Performed By: #### C K, BNP, HS TROP, PTT, PT #### [address] Ovalocytes Slight Normal [facility] Comment on above: Performed By: #### C K, BNP, HS TROP, PTT, PT #### [address] Platelet Estimate Normal Normal Normal [facility] Comment on above: Performed By: #### C K, BNP, HS TROP, PTT, PT #### [address] Platelet Morphology Normal Normal Normal [facility] Comment on above: Result Comment: PERF ORMED BY: [place] [address] PATHOLOGIST MANAGER CAREER LILIANA CLAY M.D. Performed By: #### C K, BNP, HS TROP, PTT, PT #### [address] Poikilocytosis Moderate Normal [facility] Comment on above: Performed By: #### C K, BNP, HS TROP, PTT, PT #### [address] Polychromasia Slight Normal [facility] Comment on above: Performed By: #### C K, BNP, HS TROP, PTT, PT #### [address] Schistocytes Slight Normal [facility] Comment on above: Performed By: #### C K, BNP, HS TROP, PTT, PT #### [address] Sickle Cells Slight High None Seen [facility] Comment on above: Performed By: #### C K, BNP, HS TROP, PTT, PT #### [address] Target Cells Slight Normal [facility] Comment on above: Performed By: #### C K, BNP, HS TROP, PTT, PT #### [address] Tear Drop Cells Slight Normal [facility] Comment on above: Performed By: #### C K, BNP, HS TROP, PTT, PT #### [place] [address] [place] Dipstick and Microscopicon 0 03-30-2024 Bacteria,Urine 2+ High None Seen [facility] Comment on above: Order Comment: Name Collection Type:: Clean-Voided Midstream Performed By: #### C K, BNP, HS TROP, PTT, PT #### [address] Hyaline Casts,Urine 9-19 High 0-8 [facility] Comment on above: Order Comment: Name Collection Type:: Clean-Voided Midstream Performed By: #### C K, BNP, HS TROP, PTT, PT #### [address] Mucus,Urine Rare Normal [facility] Comment on above: Order Comment: Name Collection Type:: Clean-Voided Midstream Result Comment: PERF ORMED BY: [place] [address] PATHOLOGIST MANAGER CAREER LILIANA CLAY M.D. Performed By: #### C K, BNP, HS TROP, PTT, PT #### [address] RBC,Urine 1-2 Normal 0-4 [facility] Comment on above: Order Comment: Name Collection Type:: Clean-Voided Midstream Performed By: #### C K, BNP, HS TROP, PTT, PT #### [address] Squamous Epithelial Cell,Urine 10-19 High 0-2 [facility] Comment on above: Order Comment: Name Collection Type:: Clean-Voided Midstream Performed By: #### C K, BNP, HS TROP, PTT, PT #### [address] WBC,Urine 10-19 High 0-4 [facility] Comment on above: Order Comment: Name Collection Type:: Clean-Voided Midstream Performed By: #### C K, BNP, HS TROP, PTT, PT #### [address] Drug Screen,Urineon 03-30-20 24 Amphetamine Screen,Urine Negative Normal Negative [facility] Comment on above: Performed By: #### C K, BNP, HS TROP, PTT, PT #### [address] Barbiturate Screen,Urine Positive High Negative [facility] Comment on above: Performed By: #### C K, BNP, HS TROP, PTT, PT #### [address] Benzodiazepines Screen,Urine Negative Normal Negative [facility] Comment on above: Performed By: #### C K, BNP, HS TROP, PTT, PT #### [address] Cannabinoid Screen,Urine Positive High Negative [facility] Comment on above: Result Comment: Thes e are unconfirmed results and should not be used for legal purposes. Drug Cut-Off Concentration: AMPH 1000 ng/mL ALESSANDRO 200 ng/mL RHINA 200 ng/mL COCM 300 ng/mL OP 300 ng/mL PCP 25 ng/mL THC 20 ng/mL PERFORMED BY: [place] [address] PATHOLOGIST MANAGER CAREER LILIANA CLAY M.D. Performed By: #### C K, BNP, HS TROP, PTT, PT #### [address] Cocaine Screen,Urine Negative Normal Negative [facility] Comment on above: Performed By: #### C K, BNP, HS TROP, PTT, PT #### [address] Opiate Screen,Urine Negative Normal Negative [facility] Comment on above: Performed By: #### C K, BNP, HS TROP, PTT, PT #### [address] Phencyclidine Screen,Urine Negative Normal Negative [facility] Comment on above: Performed By: #### C K, BNP, HS TROP, PTT, PT #### [address] ECH echo transthoracicon ECH echo transthoracic [facility] [place] [address] [place] [address] Echocardiogram Signed Patient: Essence Vincent MR#: [id number] : 1970 Acct:[id number] Age/Sex: 53 / F ADM Date: 03/30/24 Loc: Room: [address] [place] [address] Type: ADM INOo Attending Dr: Patrica Mcmahon MD Ordering Provider: Kristyn Russell APRN Date of Service: 03/30/2409/22/499 ECH/ECH echo transthoracic: chf, chest pain Copies to: Sherly Brewer MD, [facility] Kristyn Russell APRN Ordering Physician: Kristyn Russell Height: 64 in Weight: 156 lb Performed By: MICHAEL Walton BSA: 1.8 m2 BP: 131/80 mmHg HR: 79 Reason For Study: chf, chest pain History: Atrial Thrombus, CHF, COPD, Depression, Hypotension, [place], AICD, SVT, Mitral Valve Replacement, CABG, Ablation, [...] Electronically (more content not included)... Normal [facility] Eosinophils Auto (Bld) [#/Vo l]Ordered By: Pedro Melo on 03-30-2024 Eosinophils (Bld) [#/Vol] N/A [facility] Eosinophils/100 WBC Auto (Bl d)Ordered By: Pedro Melo on 03-30-2024 Eosinophils/100 WBC (Bld) N/A [facility] Eosinophils/100 leukocytes i n Blood by Manual countOrdered By: Pedro Melo on 03-30-2024 Eosinophils/100 WBC (Bld) 2 % Normal 1-3 [facility] Comment on above: Performed By: #### C K, BNP, HS TROP, PTT, PT #### [facility] [address] Epithelial cells.squamous [# /area] in Urine sediment by Automated countOrdered By: Pedro Melo on 03-30-2024 Epithelial cells.squamous Auto (Urine sed) [#/Area] 10-19 [HPF] High 0-2 [facility] Erythrocyte distribution wid th [Ratio] by Automated countOrdered By: Kristyn Russell on 03-30-2024 Erythrocyte distribution width (RBC) [Ratio] 20.4 % High 11.9-15.3 [facility] Comment on above: Performed By: #### C K, BNP, HS TROP, PTT, PT #### [facility] [address] Erythrocyte distribution wid th [Ratio] by Automated countOrdered By: Pedro Melo on 03-30-2024 Erythrocyte distribution width (RBC) [Ratio] 20.5 % High 11.9-15.3 [facility] Comment on above: Performed By: #### C K, BNP, HS TROP, PTT, PT #### [facility] [address] [place] [address] Erythrocyte sickle cell dete ctionOrdered By: Pedro Melo on 03-30-2024 Sickle cells LM Ql (Bld) Slight High None Seen [facility] Erythrocytes [#/area] in Uri ne sediment by Automated countOrdered By: Pedro Melo on 03-30-2024 RBC Auto (Urine sed) [#/Area] 1-2 [HPF] 0-4 [facility] Erythrocytes [#/volume] in B lood by Automated countOrdered By: Kristyn Russell on 03-30-2024 RBC (Bld) [#/Vol] 5.05 10*6/uL High 3.60-5.00 [facility] Comment on above: Performed By: #### C K, BNP, HS TROP, PTT, PT #### [facility] [address] [place] [address] [place] Erythrocytes [#/volume] in B lood by Automated countOrdered By: Pedro Melo on 03-30-2024 RBC (Bld) [#/Vol] 5.00 10*6/uL Normal 3.60-5.00 [facility] Comment on above: Performed By: #### C K, BNP, HS TROP, PTT, PT #### [facility] [address] [place] [address] [place] Ferritin [Mass/volume] in Se rum or PlasmaOrdered By: Kristyn Russell on 03-30-2024 Ferritin [Mass/Vol] 18.6 ng/mL Normal 11.0-306.8 [facility] Comment on above: Performed By: #### M G, TSH3, FE and TIBC, LIPID, SCAN CBC, NEHAL, BMP #### [facility] [address] [place] [address] [place] Giant platelets/100 leukocyt es [Ratio] in Blood by Manual countOrdered By: Pedro Melo on 03-30-2024 Giant platelets/100 WBC Manual cnt (Bld) [Ratio] 5 /100{WBC} [facility] Glucose [Mass/volume] in Ser um or PlasmaOrdered By: Kristyn Russell on 03-30-2024 Glucose [Mass/Vol] 83 mg/dL Normal 70-[address] [facility] Comment on above: ADA recommended refe rence rangeRandom Glucose Reference Range is dependent on time and content of last meal. Glucose of more than 200 mg/dL in a nonstressed, ambulatory subject supports the diagnosis of Diabetes Mellitus. Result Comment: [place] om Glucose Reference Range is dependent on time and content of last meal. Glucose of more than 200 mg/dL in a nonstressed, ambulatory subject supports the diagnosis of Diabetes Mellitus. ADA recommended reference range Performed By: #### M G, TSH3, FE and TIBC, LIPID, SCAN CBC, NEHAL, BMP #### [facility] [address] [place] [address] [place] Glucose [Mass/volume] in Ser um or PlasmaOrdered By: Pedro Melo on 03-30-2024 Glucose [Mass/Vol] 126 mg/dL High 70-[address] [facility] Comment on above: ADA recommended refe rence rangeRandom Glucose Reference Range is dependent on time and content of last meal. Glucose of more than 200 mg/dL in a nonstressed, ambulatory subject supports the diagnosis of Diabetes Mellitus. Result Comment: [place] [facility] Glucose Reference Range is dependent on time and content of last meal. Glucose of more than 200 mg/dL in a nonstressed, ambulatory subject supports the diagnosis of Diabetes Mellitus. ADA recommended reference range Performed By: #### C K, BNP, HS TROP, PTT, PT #### [address] Glucose [Mass/volume] in Uri ne by Test stripOrdered By: Pedro Melo on 03-30-2024 Glucose Test strip (U) [Mass/Vol] Normal mg/dL Normal [facility] Helmet cell detectionOrdered By: Kristyn Russell on 03-30-2024 Helmet cells LM Ql (Bld) [facility] Hematocrit [Volume Fraction] of Blood by Automated countOrdered By: Kristyn Russell on 03-30-2024 Hematocrit (Bld) [Volume fraction] 31.6 % Low 34.0-46.4 [facility] Comment on above: Performed By: #### C K, BNP, HS TROP, PTT, PT #### [address] Hematocrit [Volume Fraction] of Blood by Automated countOrdered By: Pedro Melo on 03-30-2024 Hematocrit (Bld) [Volume fraction] 31.3 % Low 34.0-46.4 [facility] Comment on above: Performed By: #### C K, BNP, HS TROP, PTT, PT #### [address] Hemoglobin Test strip Ql (U) Ordered By: Pedro Melo on 03-30-2024 Hemoglobin Ql (U) Trace High Negative [facility] Hemoglobin [Mass/volume] in BloodOrdered By: Kristyn Russell on 03-30-2024 Hemoglobin (Bld) [Mass/Vol] 9.5 g/dL Low 11.8-15.4 [facility] Comment on above: Performed By: #### C K, BNP, HS TROP, PTT, PT #### [facility] [address] Hemoglobin [Mass/volume] in BloodOrdered By: Pedro Melo on 03-30-2024 Hemoglobin (Bld) [Mass/Vol] 9.3 g/dL Low 11.8-15.4 [facility] Comment on above: Performed By: #### C K, BNP, HS TROP, PTT, PT #### [facility] [address] Hyaline casts [#/area] in Ur ine sediment by Automated countOrdered By: Pedro Melo on 03-30-2024 Hyaline casts Auto (Urine sed) [#/Area] 9-19 [LPF] High 0-8 [facility] Hypochromia LM Ql (Bld)Order ed By: Kristyn Russell on 03-30-2024 Hypochromia Ql (Bld) [facility] Hypochromia LM Ql (Bld)Order ed By: Pedro Melo on 03-30-2024 Hypochromia Ql (Bld) [facility] INR in Platelet poor plasma by Coagulation assayOrdered By: Kristyn Russell on 03-30-2024 INR Coag (PPP) [Relative time] 1.1 {INR} Normal [facility] Comment on above: INR Therapeutic [...] heart valves: 3 - 4.5 PERFORMED BY: [place] [address] PATHOLOGIST MANAGER CAREER LILIANA CLAY M.D. Performed By: #### C K, BNP, HS TROP, PTT, PT #### [address] INR in Platelet poor plasma by Coagulation assayOrdered By: Pedro Melo on 03-30-2024 INR Coag (PPP) [Relative time] 1.1 {INR} Normal [facility] Comment on above: INR Therapeutic [...] K, BNP, HS TROP, PTT, PT #### [address] Iron [Mass/volume] in Serum or PlasmaOrdered By: Kristyn Russell on 03-30-2024 Iron [Mass/Vol] 19 ug/dL Low 50-212 [facility] Comment on above: Performed By: #### M G, TSH3, FE and TIBC, LIPID, SCAN CBC, NEHAL, BMP #### [facility] [address] [place] [address] Iron and TIBC Profileon % Iron Saturation 3.7 % Low 20-50 [facility] Comment on above: Performed By: #### M G, TSH3, FE and TIBC, LIPID, SCAN CBC, NEHAL, BMP #### [facility] [address] [place] [id number] [facility] Total Iron Binding Capacity 512 ug/dL High 255-450 [facility] Comment on above: Performed By: #### M G, TSH3, FE and TIBC, LIPID, SCAN CBC, NEHAL, BMP #### [facility] [address] [place] [id number] [facility] Iron binding capacity [Mass/ volume] in Serum or PlasmaOrdered By: Kristyn Russell on 03-30-2024 Iron binding capacity [Mass/Vol] 512 ug/dL High 255-450 [facility] Iron saturation [Mass Fracti on] in Serum or PlasmaOrdered By: Kristyn Russell on 03-30-2024 Iron saturation [Mass fraction] 3.7 % Low 20-50 [facility] Ketones [Presence] in Urine by Test stripOrdered By: Pedro Melo on 03-30-2024 Ketones Ql (U) Negative Normal Negative [facility] Comment on above: Order Comment: Name Collection Type:: Clean-Voided Midstream Performed By: #### C K, BNP, HS TROP, PTT, PT #### [facility] [address] [place] [id number] [facility] Siddharth 03-30-2024 L Specimen: [id number] Received: 03/30/24 Status: SOUT Req Num: [id number] Spec Type: Impression Subm Dr: Pedro Melo DO Tissues: PATHPER Procedures: PATHREVIEW Age/ Patient Sex Location Account Attending Physician Essence Vincent 53/F [id number] Patrica Mcmahon MD SPEC NUM: [id number] RECD: 03/30/24 STATUS: SOUT REQ NUM: [id number] MAC: 03/30/24- SUBM DR: Pedro Melo DO ENTERED: 03/30/[address] [facility] [address]: SPEC TYPE: Impression DEPT: [place] ENTERED BY: [id number] RECV BY: [id number] ORDERED: PATHREVIEW ORDERED: PATHREVIEW Pathologist Review Microcytic Anemia Is Noted. Differential Diagnosis Includes Iron Deficiency Vs. Alpha Or Beta Thalassemia. Correlation With Iron Studies And Hemoglobin Electrophoresis Results Is Suggested. [id number] Specimen: [id number] Received: 03/30/24 Status: YADIRA Chaconnima Num: [id number] Spec Type: Impression Subm Dr: Pedro Melo DO Tissues: PATHPER Procedures: PATHREVIEW Patient: Essence Vincent [id number] (Continued) Signed (signature on file) Zacarias Ocampo MD 03/30/24 1505 Normal [facility] Leukocyte esterase [Presence ] in Urine by Test stripOrdered By: Pedro Melo on 03-30-2024 Leukocyte esterase Test strip Ql (U) 3+ High Negative [facility] Comment on above: Order Comment: Name Collection Type:: Clean-Voided Midstream Performed By: #### C K, BNP, HS TROP, PTT, PT #### [facility] [address] Leukocytes [#/area] in Urine sediment by Automated countOrdered By: Pedro Melo on 03-30-2024 WBC Auto (Urine sed) [#/Area] 10-19 [HPF] High 0-4 [facility] Leukocytes [#/volume] correc janis for nucleated erythrocytes in Blood by Automated counOrdered By: Kristyn Russell on 03-30-2024 WBC corrected for nucl RBC Auto (Bld) [#/Vol] 11.1 10*3/uL 3.8-11.6 [facility] Leukocytes [#/volume] correc janis for nucleated erythrocytes in Blood by Automated counOrdered By: Pedro Melo on 03-30-2024 WBC corrected for nucl RBC Auto (Bld) [#/Vol] 9.7 10*3/uL 3.8-11.6 [facility] Leukocytes [#/volume] in Blo od by Automated countOrdered By: Kristyn Russell on 03-30-2024 WBC (Bld) [#/Vol] 11.1 10*3/uL Normal 3.8-11.6 [facility] Comment on above: Performed By: #### C K, BNP, HS TROP, PTT, PT #### [facility] [address] Leukocytes [#/volume] in Blo od by Automated countOrdered By: Pedro Melo on 03-30-2024 WBC (Bld) [#/Vol] 9.7 10*3/uL Normal 3.8-11.[address] [facility] Comment on above: Performed By: #### C K, BNP, HS TROP, PTT, PT #### [facility] [address] Lipid Panelon 03-30-2024 LDL Cholesterol,Calculated 38 mg/dL Normal 0-100 [facility] Comment on above: Result Comment: LDL ATP III CLASSIFICATION LDL less than 100 mg/dL Optimal LDL 100-129 mg/dL Near or above optimal LDL 130-159 mg/dL Borderline high LDL 160-189 mg/dL High LDL greater than 189 mg/dL Very high Performed By: #### C K, BNP, HS TROP, PTT, PT #### [facility] [address] Triglyceride w/Reflex 59 mg/dL Normal 0-149 [facility] Comment on above: Result Comment: TRIG ATP III CLASSIFICATION TRIG less than 150 mg/dL Normal TRIG 150-199 mg/dL Borderline high TRIG 200-500 mg/dL High TRIG greater than 500 mg/dL Very high Standard traceable to the Center for Disease Conrtrol and Prevention (CDC) test method. Performed By: #### C K, BNP, HS TROP, PTT, PT #### [facility] [address] VLDL CHOLESTEROL 11 mg/dL Normal [facility] Comment on above: Performed By: #### C K, BNP, HS TROP, PTT, PT #### [facility] [address] Lymphocytes Auto (Bld) [#/Vo l]Ordered By: Pedro Melo on 03-30-2024 Lymphocytes (Bld) [#/Vol] N/A [facility] Lymphocytes [#/volume] in Bl ood by Automated countOrdered By: Kristyn Russell on 03-30-2024 Lymphocytes (Bld) [#/Vol] 1.6 10*3/uL Normal 1.00-4.8 [facility] Comment on above: Performed By: #### C K, BNP, HS TROP, PTT, PT #### [facility] [address] [place] [address] [place] Lymphocytes/100 WBC Auto (Bl d)Ordered By: Pedro Melo on 03-30-2024 Lymphocytes/100 WBC (Bld) N/A [facility] Lymphocytes/100 leukocytes i n Blood by Automated countOrdered By: Kristyn Russell on 03-30-2024 Lymphocytes/100 WBC (Bld) 14.4 % Normal . [facility] Comment on above: Performed By: #### C K, BNP, HS TROP, PTT, PT #### [address] Lymphocytes/100 leukocytes i n Blood by Manual countOrdered By: Pedro Melo on 03-30-2024 Lymphocytes/100 WBC (Bld) 13 % Low 18-42 [facility] Comment on above: Performed By: #### C K, BNP, HS TROP, PTT, PT #### [facility] [address] [place] [address] MCH [Entitic mass] by Automa janis countOrdered By: Kristyn Russell on 03-30-2024 MCH (RBC) [Entitic mass] 18.8 pg Low 24.7-34.3 [facility] Comment on above: Performed By: #### C K, BNP, HS TROP, PTT, PT #### [address] MCH [Entitic mass] by Automa janis countOrdered By: Pedro Melo on 03-30-2024 MCH (RBC) [Entitic mass] 18.6 pg Low 24.7-34.3 [facility] Comment on above: Performed By: #### C K, BNP, HS TROP, PTT, PT #### [address] MCHC Auto (RBC) [Mass/Vol]Or dered By: Kristyn Russell on 03-30-2024 MCHC (RBC) [Mass/Vol] 30.0 g/dL Low 32.0-35.0 [facility] MCHC Auto (RBC) [Mass/Vol]Or dered By: Pedro Melo on 03-30-2024 MCHC (RBC) [Mass/Vol] 29.8 g/dL Low 32.0-35.0 [facility] MCV [Entitic volume] by Auto mated countOrdered By: Kristyn Russell on 03-30-2024 MCV (RBC) [Entitic vol] 62.5 fL Low 80-100 [facility] Comment on above: Performed By: #### C K, BNP, HS TROP, PTT, PT #### [address] MCV [Entitic volume] by Auto mated countOrdered By: Pedro Melo on 03-30-2024 MCV (RBC) [Entitic vol] 62.7 fL Low 80-100 [facility] Comment on above: Performed By: #### C K, BNP, HS TROP, PTT, PT #### [facility] [address] [place] [address] Magnesium [Mass/volume] in S daisy or PlasmaOrdered By: Kristyn Russell on 03-30-2024 Magnesium [Mass/Vol] 1.8 mg/dL Low 1.9-2.7 [facility] Comment on above: Performed By: #### M G, TSH3, FE and TIBC, LIPID, SCAN CBC, NEHAL, BMP #### [facility] [address] [place] [address] Manual blood segmented neutr ophils/100 leukocytesOrdered By: Pedro Melo on 03-30-2024 Segmented neutrophils/100 WBC (Bld) 77 % High 50-70 [facility] Comment on above: Performed By: #### C K, BNP, HS TROP, PTT, PT #### [facility] [address] [place] [address] [place] Microcytes LM Ql (Bld)Ordere d By: Kristyn Russell on 03-30-2024 Microcytes Ql (Bld) Marked [facility] Microcytes LM Ql (Bld)Ordere d By: Pedro Melo on 03-30-2024 Microcytes Ql (Bld) [facility]ed [facility] Monocyte distribution width [Entitic volume] in Blood by AutomatedOrdered By: Pedro Melo on 03-30-2024 Monocyte distribution width Auto (Bld) [Entitic vol] 16.64 % 0.00-20.00 [facility] Monocytes Auto (Bld) [#/Vol] Ordered By: Pedro Melo on 03-30-2024 Monocytes (Bld) [#/Vol] N/A [facility] Monocytes/100 WBC Auto (Bld) Ordered By: Pedro Melo on 03-30-2024 Monocytes/100 WBC (Bld) N/A [facility] Monocytes/100 leukocytes in Blood by Manual countOrdered By: Pedro Melo on 03-30-2024 Monocytes/100 WBC (Bld) 5 % Normal 2-11 [facility] Comment on above: Performed By: #### C K, BNP, HS TROP, PTT, PT #### [facility] [address] Mucus [Presence] in Urine by AutomatedOrdered By: Pedro Melo on 03-30-2024 Mucus Auto Ql (U) Rare [LPF] [facility] Myelocytes/100 WBC Manual cn t (Bld)Ordered By: Pedro Melo on 03-30-2024 Myelocytes/100 WBC (Bld) 1 % High 0-0 [facility] Neutrophils Auto (Bld) [#/Vo l]Ordered By: Pedro Melo on 03-30-2024 Neutrophils (Bld) [#/Vol] N/A [facility] Neutrophils [#/volume] in Bl ood by Automated countOrdered By: Kristyn Russell on 03-30-2024 Neutrophils (Bld) [#/Vol] 8.3 10*3/uL High 1.8-7.7 [facility] Comment on above: Performed By: #### C K, BNP, HS TROP, PTT, PT #### [facility] [address] Neutrophils/100 WBC Auto (Bl d)Ordered By: Pedro Melo on 03-30-2024 Neutrophils/100 WBC (Bld) N/A [facility] Nitrite Test strip Ql (U)Ord ered By: Pedro Melo on 03-30-2024 Nitrite Ql (U) Negative Negative [facility] No Panel InformationOrdered By: Kristyn Russell on 03-30-2024 Estimated GFR (CKD-EPI) > 60.0 mL/Min [facility] Creatinine Clearance (Chem 62.62 [facility] No Panel InformationOrdered By: Pedro Melo on 03-30-2024 Estimated GFR (CKD-EPI) > 60.0 mL/Min [facility] Creatinine Clearance (Chem 58.60 [facility] Slides for Pathologist Review Ordered path review [facility] Nucleated erythrocytes [Pres ence] in Blood by Automated countOrdered By: Kristyn Russell on 03-30-2024 Nucleated RBC Auto Ql (Bld) 0.0 /100{WBC} 0-0.5 [facility] Nucleated erythrocytes [Pres ence] in Blood by Automated countOrdered By: Pedro Melo on 03-30-2024 Nucleated RBC Auto Ql (Bld) N/A [facility] Opiates [Presence] in Urine by Screen methodOrdered By: Pedro Melo on 03-30-2024 Opiates Screen Ql (U) Negative Negative [facility] Ovalocyte detectionOrdered B y: Kristyn Russell on 03-30-2024 Ovalocytes LM Ql (Bld) [facility] Ovalocyte detectionOrdered B y: Pedro Melo on 03-30-2024 Ovalocytes LM Ql (Bld) Slight Fi [facility] Partial Thromboplastin Timeo n 03-30-2024 aPTT Coag (Bld) [Time] 25.3 s Normal 25.1-36.5 Th e [facility] Comment on above: Result Comment: A he matocrit value greater than 55% may lead to inaccurate results in coagulation testing. Patients having hematocrit values >55% require a special collection tube for coagulation studies. Please contact the laboratory at [phone] for redraw instructions. PERFORMED BY: [place] [address] PATHOLOGIST MANAGER CAREER LILIANA CLAY M.D. Performed By: #### C K, BNP, HS TROP, PTT, PT #### [facility] [address] [place] [address] Pathologist Slide Reviewon 0 03-30-2024 Pathologist Slide Review Ordered Path Review Normal [facility] Comment on above: Result Comment: PERF ORMED BY: [place] [address] PATHOLOGIST MANAGER CAREER LILIANA CLAY M.D. Performed By: #### C K, BNP, HS TROP, PTT, PT #### [place] [id number] [facility] Phencyclidine Screen Ql (U)O rdered By: Pedro Melo on 08-01-2024 Phencyclidine Ql (U) Negative Negative [facility] Platelet adequacy [Presence] in Blood by Light microscopyOrdered By: Kristyn Russell on 03-30-2024 Platelets LM Ql (Bld) Normal Normal [facility] Platelet adequacy [Presence] in Blood by Light microscopyOrdered By: Pedro Melo on 03-30-2024 Platelets LM Ql (Bld) Normal Normal [facility] Platelet mean volume [Entiti c volume] in Blood by Automated countOrdered By: Kristyn Russell on 03-30-2024 Platelet mean volume (Bld) [Entitic vol] 9.3 fL Normal 6.3-10.7 [facility] Comment on above: Performed By: #### C K, BNP, HS TROP, PTT, PT #### [facility] [address] [place] [address] [place] Platelet mean volume [Entiti c volume] in Blood by Automated countOrdered By: Pedro Melo on 03-30-2024 Platelet mean volume (Bld) [Entitic vol] 8.7 fL Normal 6.3-10.7 [facility] Comment on above: Performed By: #### C K, BNP, HS TROP, PTT, PT #### [facility] [address] Platelet morphology finding [Identifier] in BloodOrdered By: Kristyn Russell on 03-30-2024 Platelet morphology finding Nom (Bld) Normal Normal [facility] Platelet morphology finding [Identifier] in BloodOrdered By: Pedro Melo on 03-30-2024 Platelet morphology finding Nom (Bld) Normal Normal [facility] Platelets [#/volume] in Bloo d by Automated countOrdered By: Kristyn Russell on 03-30-2024 Platelets (Bld) [#/Vol] 247 10*3/uL Normal 150-450 [facility] Comment on above: Performed By: #### C K, BNP, HS TROP, PTT, PT #### [facility] [address] [place] [address] [place] Platelets [#/volume] in Bloo d by Automated countOrdered By: Pedro Melo on 03-30-2024 Platelets (Bld) [#/Vol] 264 10*3/uL Normal 150-450 [facility] Comment on above: Performed By: #### C K, BNP, HS TROP, PTT, PT #### [facility] [address] Poikilocytosis [Presence] in Blood by Light microscopyOrdered By: Kristyn Russell on 03-30-2024 Poikilocytosis LM Ql (Bld) Moderate [facility] Poikilocytosis [Presence] in Blood by Light microscopyOrdered By: Pedro Melo on 03-30-2024 Poikilocytosis LM Ql (Bld) Moderate [facility] Polychromasia [Presence] in Blood by Light microscopyOrdered By: Kristyn Russell on 03-30-2024 Polychromasia LM Ql (Bld) Marked [facility] Polychromasia [Presence] in Blood by Light microscopyOrdered By: Pedro Melo on 03-30-2024 Polychromasia LM Ql (Bld) Slight [facility] Potassium [Moles/volume] in Serum or PlasmaOrdered By: Kristyn Russell on 03-30-2024 Potassium [Moles/Vol] 4.4 mmol/L Normal 3.5-5.1 [facility] Comment on above: Performed By: #### M G, TSH3, FE and TIBC, LIPID, SCAN CBC, NEHAL, BMP #### [facility] [address] [place] [address] Potassium [Moles/volume] in Serum or PlasmaOrdered By: Pedro Melo on 03-30-2024 Potassium [Moles/Vol] 3.3 mmol/L Low 3.5-5.1 [facility] Comment on above: Performed By: #### C K, BNP, HS TROP, PTT, PT #### [facility] [address] Protein Test strip (U) [Mass /Vol]Ordered By: Pedro Melo on 03-30-2024 Protein (U) [Mass/Vol] Negative Negative [facility] Prothrombin time (PT)Ordered By: Kristyn Russell on 03-30-2024 PT Coag (PPP) [Time] 12.5 s Normal 9.0-12.9 [facility] Comment on above: A hematocrit value g reater than 55% may lead to inaccurate results in coagulation testing. Patients having hematocrit values >55% require a special collection tube for coagulation studies. Please contact the laboratory at [phone] for redraw instructions. Result Comment: A he matocrit value greater than 55% may lead to inaccurate results in coagulation testing. Patients having hematocrit values >55% require a special collection tube for coagulation studies. Please contact the laboratory at [phone] for redraw instructions. Performed By: #### C K, BNP, HS TROP, PTT, PT #### [facility] [address] [place] [id number] [facility] Prothrombin time (PT)Ordered By: Pedro Melo on 03-30-2024 PT Coag (PPP) [Time] 12.9 s Normal 9.0-12.9 [facility] Comment on above: A hematocrit value g reater than 55% may lead to inaccurate results in coagulation testing. Patients having hematocrit values >55% require a special collection tube for coagulation studies. Please contact the laboratory at [phone] for redraw instructions. Result Comment: A he matocrit value greater than 55% may lead to inaccurate results in coagulation testing. Patients having hematocrit values >55% require a special collection tube for coagulation studies. Please contact the laboratory at [phone] for redraw instructions. Performed By: #### C K, BNP, HS TROP, PTT, PT #### [facility] [address] RBC morphologyOrdered By: Mayo Russell on 03-30-2024 RBC morphology finding Nom (Bld) N/A [facility] RBC morphologyOrdered By: William Melo on 03-30-2024 RBC morphology finding Nom (Bld) N/A [facility] Scan and CBCon 03-30-2024 Acanthocytes Slight Normal [facility] Comment on above: Performed By: #### C K, BNP, HS TROP, PTT, PT #### [facility] [address] Crenated RBC Slight Normal [facility] Comment on above: Performed By: #### C K, BNP, HS TROP, PTT, PT #### [address] Helmet Cells Slight Normal [facility] Comment on above: Performed By: #### C K, BNP, HS TROP, PTT, PT #### [address] Hypochromasia Marked Normal [facility] Comment on above: Performed By: #### C K, BNP, HS TROP, PTT, PT #### [address] Mean Corpuscular HGB Conc 30.0 g/dL Low 32.0-35.0 [facility] Comment on above: Performed By: #### C K, BNP, HS TROP, PTT, PT #### [address] Microcytosis Marked Normal [facility] Comment on above: Performed By: #### C K, BNP, HS TROP, PTT, PT #### [address] NRBC% 0.0 /100{WBC} Normal 0-0.5 [facility] Comment on above: Performed By: #### C K, BNP, HS TROP, PTT, PT #### [address] Ovalocytes Slight Normal [facility] Comment on above: Performed By: #### C K, BNP, HS TROP, PTT, PT #### [address] Platelet Estimate Normal Normal Normal [facility] Comment on above: Performed By: #### C K, BNP, HS TROP, PTT, PT #### [address] Platelet Morphology Normal Normal Normal [facility] Comment on above: Result Comment: PERF ORMED BY: [place] [address] PATHOLOGIST MANAGER CAREER JIANLAN SUN M.D. Performed By: #### C K, BNP, HS TROP, PTT, PT #### [facility] [address] Poikilocytosis Moderate Normal [facility] Comment on above: Performed By: #### C K, BNP, HS TROP, PTT, PT #### [facility] [address] Polychromasia Marked Normal [facility] Comment on above: Performed By: #### C K, BNP, HS TROP, PTT, PT #### [facility] [address] Target Cells Slight Normal [facility] Comment on above: Performed By: #### C K, BNP, HS TROP, PTT, PT #### [facility] [address] Schistocytes [Presence] in B lood by Light microscopyOrdered By: Pedro Melo on 03-30-2024 Schistocytes LM Ql (Bld) Slight [facility] Serum or plasma anion gap de terminationOrdered By: Kristyn Russell on 03-30-2024 Anion gap [Moles/Vol] 13.0 mmol/L Normal 6.0-15.0 [facility] Comment on above: Performed By: #### M G, TSH3, FE and TIBC, LIPID, SCAN CBC, NEHAL, BMP #### [address] Serum or plasma anion gap de terminationOrdered By: Pedro Melo on 03-30-2024 Anion gap [Moles/Vol] 12.4 mmol/L Normal 6.0-15.0 [facility] Comment on above: Performed By: #### C K, BNP, HS TROP, PTT, PT #### [address] Serum or plasma high density lipoprotein (HDL) cholesterol measurementOrdered By: Kristyn Russell on 03-30-2024 Cholesterol in HDL [Mass/Vol] 39 mg/dL Normal 23-92 [facility] Comment on above: HDL CHOL ATP-III CLA SSIFICATION Cardiovascular RiskHDL > or equal to 60 mg/dL LOWHDL < 40 mg/dL HIGH Result Comment: HDL CHOL ATP-III CLASSIFICATION Cardiovascular Risk HDL > or equal to 60 mg/dL LOW HDL < 40 mg/dL HIGH Performed By: #### C K, BNP, HS TROP, PTT, PT #### [address] Serum or plasma total choles terol/high density lipoprotein (HDL) cholesterol mass ratOrdered By: Kristyn Russell on 03-30-2024 Cholesterol.total/Chol esterol in HDL [Mass ratio] 2.3 {ratio} Normal <5.0 [facility] Comment on above: Performed By: #### C K, BNP, HS TROP, PTT, PT #### [address] Sodium [Moles/volume] in Ser um or PlasmaOrdered By: Kristyn Russell on 03-30-2024 Sodium [Moles/Vol] 136 mmol/L Normal 136-[address] [facility] Comment on above: Performed By: #### M G, TSH3, FE and TIBC, LIPID, SCAN CBC, NEHAL, BMP #### [facility] [address] [place] [address] Sodium [Moles/volume] in Ser um or PlasmaOrdered By: Pedro Melo on 03-30-2024 Sodium [Moles/Vol] 137 mmol/L Normal 136-[address] [facility] Comment on above: Performed By: #### C K, BNP, HS TROP, PTT, PT #### [facility] [address] [place] [address] Specific gravity Test strip (U) [Rel density]Ordered By: Pedro Melo on 03-30-2024 Specific gravity (U) [Rel density] 1.016 1.001-1.03 0 [facility] Target cellsOrdered By: Aram Russell on 03-30-2024 Target cells LM Ql (Bld) [facility] Target cellsOrdered By: Isai Melo on 03-30-2024 Target cells LM Ql (Bld) [facility] Teardrop cell detectionOrder ed By: Pedro Melo on 03-30-2024 Dacrocytes LM Ql (Bld) Slight [facility] Thyrotropin [Units/volume] i n Serum or PlasmaOrdered By: Kristyn Russell on 03-30-2024 TSH Qn 5.94 m[IU]/L High 0.45-5.33 [facility] Comment on above: Result Comment: PERF ORMED BY: [place] [address] PATHOLOGIST MANAGER CAREER LILIANA CLAY M.D. Performed By: #### C K, BNP, HS TROP, PTT, PT #### [facility] [address] [place] [address] Transferrin [Mass/volume] in Serum or PlasmaOrdered By: Kristyn Russell on 03-30-2024 Transferrin [Mass/Vol] 366 mg/dL High 203-362 [facility] Comment on above: Performed By: #### M G, TSH3, FE and TIBC, LIPID, SCAN CBC, NEHAL, BMP #### [facility] [address] [place], [place] [id number] [facility] Triglyceride [Mass/volume] i n Serum or PlasmaOrdered By: Kristyn Russell on 03-30-2024 Triglyceride [Mass/Vol] 59 mg/dL 0-149 [facility] Comment on above: TRIG ATP III CLASSIF ICATIONTRIG less than 150 mg/dL NormalTRIG 150-199 mg/dL Borderline highTRIG 200-500 mg/dL High TRIG greater than 500 mg/dL Very highStandard traceable to the Center for Disease Conrtrol and Prevention (CDC) test method. Troponin I High Sensitivityo n 03-30-2024 Troponin I High Sensitivity 15.4 pg/mL High 0.0-15.0 [facility] Comment on above: Result Comment: PERF ORMED BY: [place] [address] PATHOLOGIST MANAGER CAREER LILIANA CLAY M.D. Performed By: #### C K, BNP, HS TROP, PTT, PT #### [facility] [address] [place], [place] [id number] [facility] Troponin I High Sensitivity 17.5 pg/mL High 0.0-15.0 [facility] Comment on above: Result Comment: PERF ORMED BY: [place] [address] PATHOLOGIST MANAGER CAREER LILIANA CLAY M.D. Performed By: #### C K, BNP, HS TROP, PTT, PT #### [facility] [address] [place] [address] [facility] Troponin I High Sensitivity 14.0 pg/mL Normal 0.0-15.0 [facility] Comment on above: Result Comment: PERF ORMED BY: [place] [address] PATHOLOGIST MANAGER CAREER LILIANA CLAY M.D. Performed By: #### C K, BNP, HS TROP, PTT, PT #### [address] [address] Troponin I.cardiac [Mass/vol ume] in Serum or Plasma by Detection limit <= 0.01 ng/Ordered By: Kendrick Jorgensen on 03-30-2024 Troponin I.cardiac DL <= 0.01 ng/mL [Mass/Vol] 15.4 pg/mL High 0.0-15.0 [facility] Troponin I.cardiac [Mass/vol ume] in Serum or Plasma by Detection limit <= 0.01 ng/Ordered By: Pedro Melo on 03-30-2024 Troponin I.cardiac DL <= 0.01 ng/mL [Mass/Vol] 14.0 pg/mL 0.0-15.0 [facility] Urea nitrogen [Mass/volume] in Serum or PlasmaOrdered By: Kristyn Russell on 03-30-2024 Urea nitrogen [Mass/Vol] 25 mg/dL Normal 03-23 [facility] Comment on above: Performed By: #### M G, TSH3, FE and TIBC, LIPID, SCAN CBC, NEHAL, BMP #### [facility] [address] [place], [place] [id number] [place] Urea nitrogen [Mass/volume] in Serum or PlasmaOrdered By: Pedro Melo on 03-30-2024 Urea nitrogen [Mass/Vol] 27 mg/dL High 03-23 [facility] Comment on above: Performed By: #### C K, BNP, HS TROP, PTT, PT #### [address] Urinalysison 03-30-2024 Bilirubin,Urine Negative Normal Negative [facility] Comment on above: Order Comment: Name Collection Type:: Clean-Voided Midstream Performed By: #### C K, BNP, HS TROP, PTT, PT #### [address] Glucose Ql (U) Normal Normal Normal [facility] Comment on above: Order Comment: Name Collection Type:: Clean-Voided Midstream Performed By: #### C K, BNP, HS TROP, PTT, PT #### [address] Nitrite,Urine Negative Normal Negative [facility] Comment on above: Order Comment: Name Collection Type:: Clean-Voided Midstream Performed By: #### C K, BNP, HS TROP, PTT, PT #### [address] Occult Blood,Urine Trace High Negative [facility] Comment on above: Order Comment: Name Collection Type:: Clean-Voided Midstream Result Comment: PERF ORMED BY: [place] [address] PATHOLOGIST MANAGER CAREER LILIANA CLAY M.D. Performed By: #### C K, BNP, HS TROP, PTT, PT #### [address] Protein,Urine Negative Normal Negative [facility] Comment on above: Order Comment: Name Collection Type:: Clean-Voided Midstream Performed By: #### C K, BNP, HS TROP, PTT, PT #### [address] Specificy [place],Urine 1.016 Normal 1.001-1.03 0 [facility] Comment on above: Order Comment: Name Collection Type:: Clean-Voided Midstream Performed By: #### C K, BNP, HS TROP, PTT, PT #### [facility] [address] [place] [id number] [facility] Urobilinogen,Urine Normal Normal Normal [facility] Comment on above: Order Comment: Name Collection Type:: Clean-Voided Midstream Performed By: #### C K, BNP, HS TROP, PTT, PT #### [facility] [address] [place] [id number] [facility] Urine Cultureon 03-30-2024 Bacteria identified Cx Nom (U) ORGANISM: Proteus mirabilis (O:PROMIR) [place] Count >100,000 Aerobic RAFAEL Charge (NMIC56) SUSCEPTIBILITY [...] RESISTANT TO ALL B-LACTAM DRUGS. PERFORMED BY: [facility] [address] [facility] [place] [address] PATHOLOGIST MANAGER CAREER LILIANA CLAY M.D. Normal [facility] Comment on above: Performed By: #### C K, BNP, HS TROP, PTT, PT #### [facility] [address] Urine appearanceOrdered By: Pedro Melo on 03-30-2024 Appearance (U) Clear Normal Clear [facility] Comment on above: Order Comment: Name Collection Type:: Clean-Voided Midstream Performed By: #### C K, BNP, HS TROP, PTT, PT #### [facility] [address] [place] [address] Urobilinogen Test strip (U) [Mass/Vol]Ordered By: Pedro Melo on 03-30-2024 Urobilinogen (U) [Mass/Vol] Normal mg/dL Normal [facility] XR chest 2V*on 03-30-2024 XR chest 2V* [facility] [place] [address] [place] [address] XRay Report Signed Patient: Essence Vincent MR#: [id number] : 1970 Acct:[id number] Age/Sex: 53 / F ADM Date: 03/30/24 Loc: Room: [address] [place] [address] Type: ADM INOo Attending Dr: Patrica Mcmahon [...] Christopher Walker M.D.03/30/2024 8:11 AM Dictation Location: [place] [address] Transcribed By: [facility] 03/30/24 08 Dictated By: Christopher Walker DO 03/30/24809 Signed By: 03/30/24 08 Normal [facility] pH of Urine by Test stripOrd ered By: Pedro Melo on 03-30-2024 pH (U) 6.5 [pH] Normal 5.0-9.0 [facility] Comment on above: Order Comment: Name Collection Type:: Clean-Voided Midstream Performed By: #### C K, BNP, HS TROP, PTT, PT #### [facility] [address] [place] [address] ECG 12 lead ECGon 03-29-2024 ECG 12 lead ECG [facility] [place] [address] [place] [address] Electrocardiograph Report Signed Patient: Essence Vincent MR#: [id number] : 1970 Acct:[id number] Age/Sex: 53 / F ADM Date: 03/29/24 Loc: ER Room: Type: [facility] ER Attending Dr: Ordering Provider: [...] paced beats Confirmed by Pedro MELO DO ([id number]) on 03/30/2024 1:41:19 AM Referred By: Electronically Signed By: Pedro MELO DO Transcribed By: MUS Signed By Pedro Melo DO 0 03/30/24 0141 Normal [facility] Basophils Auto (Bld) [#/Vol] on 02-17-2024 Basophils (Bld) [#/Vol] 0.2 10 3/uL High 0.0-0.1 [facility] Basophils/100 WBC Auto (Bld) on 02-17-2024 Basophils/100 WBC (Bld) 1.7 % 0.2-2.0 [facility] Eosinophils/100 WBC Auto (Bl d)on 02-17-2024 Eosinophils/100 WBC (Bld) 0.9 % 0.9-7.0 [facility] Erythrocyte distribution wid th Auto (RBC) [Ratio]on 02-17-2024 Erythrocyte distribution width (RBC) [Ratio] 21.2 % High 11.0-15.0 [facility] Estimated glomerular filtrat ion rate (GFR) non- Americanon 02-17-2024 GFR/1.73 sq M.predicted among non-blacks MDRD (S/P/Bld) [Vol rate/Area] 50 mL/min/{1.73_m2} Low >=60 [facility] Globulin Calc (S) [Mass/Vol] on 02-17-2024 Globulin (S) [Mass/Vol] 4.3 g/dL [facility] Hematocrit Auto (Bld) [Volum e fraction]on 02-17-2024 Hematocrit (Bld) [Volume fraction] 34.1 % Low 36.0-48.0 [facility] Hemoglobin [Mass/volume] in Bloodon 02-17-2024 Hemoglobin (Bld) [Mass/Vol] 9.6 g/dL Low 12.0-16.0 [facility] INR in Platelet poor plasma by Coagulation assayon 02-17-2024 INR Coag (PPP) [Relative time] 2.68 {INR} [facility] Comment on above: DESIRED INR:2.0-3.0 CONDITIONS NOT LISTED BELOW2.5-3.5 FOR PROSTHETIC HEART VALVE REPLACEMENT2.5-3.5 RECURRENT THROMBOSIS Laboratory - Chemistry and C hemistry - challengeon 02-17-2024 Albumin [Mass/Vol] 3.6 g/dL 3.4-5.[address] [facility] ALP [Catalytic activity/Vol] 347 U/L High 46-116 [facility] ALT [Catalytic activity/Vol] 26 U/L 14-59 [facility] AST [Catalytic activity/Vol] 43 U/L High 15-37 [facility] Bilirubin [Mass/Vol] 0.8 mg/dL 0.2-1.0 [facility] Calcium [Mass/Vol] 8.9 mg/dL 8.5-10.[address] [facility] Chloride [Moles/Vol] 100 mmol/L 98-107 [facility] CO2 [Moles/Vol] 24.8 mmol/L 21.0-32.0 [facility] Creatinine [Mass/Vol] 1.13 mg/dL High 0.55-1.02 [facility] GFR/1.73 sq M.predicted MDRD (S/P/Bld) [Vol rate/Area] mL/min/{1.73_m2} >=60 [facility] Glucose [Mass/Vol] 112 mg/dL High 74-[address] [facility] Potassium [Moles/Vol] 3.6 mmol/L 3.5-5.1 [facility] Protein [Mass/Vol] 7.9 g/dL 6.4-8.[address] [facility] Sodium [Moles/Vol] 134 mmol/L Low 136-[address] [facility] Urea nitrogen [Mass/Vol] 21.0 mg/dL High 7.0-18.0 [facility] Urea nitrogen/Creatinine [Mass ratio] 18.6 mg/mg [facility] Laboratory - Hematology and Cell countson 02-17-2024 Immature granulocytes/100 WBC (Bld) 0.2 % 0.0-0.5 [facility] Leukocytes [#/volume] correc janis for nucleated erythrocytes in Blood by Automated counon 02-17-2024 WBC corrected for nucl RBC Auto (Bld) [#/Vol] 8.9 10 3/uL 4.0-11.0 [facility] Lymphocytes Auto (Bld) [#/Vo l]on 02-17-2024 Lymphocytes (Bld) [#/Vol] 1.8 10 3/uL 1.2-3.8 [facility] Lymphocytes/100 WBC Auto (Bl d)on 02-17-2024 Lymphocytes/100 WBC (Bld) 20.1 % Low 20.5-60.0 [facility] MCH Auto (RBC) [Entitic mass ]on 02-17-2024 MCH (RBC) [Entitic mass] 19.1 pg Low 26.7-34.0 [facility] MCHC Auto (RBC) [Mass/Vol]on 02-17-2024 MCHC (RBC) [Mass/Vol] 28.2 g/dL Low 29.9-35.2 [facility] MCV Auto (RBC) [Entitic vol] on 02-17-2024 MCV (RBC) [Entitic vol] 67.8 fL Low 81.0-99.0 [facility] Monocytes Auto (Bld) [#/Vol] on 02-17-2024 Monocytes (Bld) [#/Vol] 1.0 10 3/uL High 0.3-0.8 [facility] Monocytes/100 WBC Auto (Bld) on 02-17-2024 Monocytes/100 WBC (Bld) 10.9 % 1.7-12.0 [facility] Neutrophils Auto (Bld) [#/Vo l]on 02-17-2024 Neutrophils (Bld) [#/Vol] 5.9 10 3/uL 1.4-6.5 [facility] Neutrophils/100 WBC Auto (Bl d)on 02-17-2024 Neutrophils/100 WBC (Bld) 66.2 % 43.0-75.0 [facility] No Panel Informationon 02-16 Eosinophils # (Auto) 0.1 10 3/uL 0.0-0.7 [facility] Immature Granulocyte # (Auto) 0.02 10 3/uL 0.00-0.03 [facility] Troponin I High Sensitivity 24.6 pg/mL 4.0-51.3 [facility] Comment on above: CUT-OFF POINTS [...] volume (Bld) [Entitic vol] 10.5 fL 9.5-13.5 [facility] Platelets Auto (Bld) [#/Vol] on 02-17-2024 Platelets (Bld) [#/Vol] 289 10 3/uL 150-450 [facility] Prothrombin time (PT)on 01-29 PT Coag (PPP) [Time] 25.8 s High 9.0-11.6 [facility] RBC Auto (Bld) [#/Vol]on RBC (Bld) [#/Vol] 5.03 10 6/uL 4.20-5.40 [facility] Serum or plasma albumin/glob ulin mass ratioon 02-17-2024 Albumin/Globulin [Mass ratio] 0.8 {ratio} [facility] Serum or plasma anion gap de terminationon 02-17-2024 Anion gap [Moles/Vol] 12.8 mmol/L [facility] Activated partial thrombopla stin time (aPTT) in platelet poor plasma by coagulation aOrdered By: Tanner Mae on 01-24-2024 aPTT Coag (PPP) [Time] 19.2 s Low 25.1-36.5 [facility] Comment on above: A hematocrit value g reater than 55% may lead to inaccurate results in coagulation testing. Patients having hematocrit values >55% require a special collection tube for coagulation studies. Please contact the laboratory at [phone] for redraw instructions. Alanine aminotransferase [En zymatic activity/volume] in Serum or PlasmaOrdered By: Tanner Mae on 01-24-2024 ALT [Catalytic activity/Vol] 14 U/L Normal 7-52 [facility] Comment on above: Performed By: #### C K, BNP, HS TROP, PTT, PT #### [address] Albumin [Mass/volume] in Ser um or Plasma by Bromocresol green (BCG) dye binding methoOrdered By: Tanner Mae on 01-24-2024 Albumin BCG dye [Mass/Vol] 3.6 g/dL 3.5-5.7 [facility] Alkaline phosphatase [Enzyma tic activity/volume] in Serum or PlasmaOrdered By: Tanner Mae on 05-27-2024 ALP [Catalytic activity/Vol] 200 U/L High 34-104 [facility] Comment on above: Performed By: #### C K, BNP, HS TROP, PTT, PT #### [address] Anisocytosis [Presence] in B lood by Light microscopyOrdered By: Tanner Mae on 01-24-2024 Anisocytosis Ql (Bld) Slight Normal [facility] Comment on above: Performed By: #### C K, BNP, HS TROP, PTT, PT #### [facility] [address] [place] [address] Aspartate aminotransferase [ Enzymatic activity/volume] in Serum or PlasmaOrdered By: Tanner Mae on 01-24-2024 AST [Catalytic activity/Vol] 35 U/L Normal 13-39 [facility] Comment on above: Performed By: #### C K, BNP, HS TROP, PTT, PT #### [facility] [address] [place] [address] BNP ser/plasOrdered By: Brett Mae on 01-24-2024 Natriuretic peptide B (Bld) [Mass/Vol] 265.0 pg/mL High 5-100 [facility] Comment on above: Result Comment: PERF ORMED BY: [place] [address] PATHOLOGIST MANAGER CAREER LILIANA CLAY M.D. Performed By: #### C K, BNP, HS TROP, PTT, PT #### [facility] [address] [place] [address] Basophils Auto (Bld) [#/Vol] Ordered By: Tanner Mae on 01-24-2024 Basophils (Bld) [#/Vol] N/A [facility] Basophils/100 WBC Auto (Bld) Ordered By: Tanner Mae on 01-24-2024 Basophils/100 WBC (Bld) N/A [facility] Basophils/100 leukocytes in Blood by Manual countOrdered By: Tanner Mae on 01-24-2024 Basophils/100 WBC (Bld) 1 % Normal 0-2 [facility] Comment on above: Performed By: #### C K, BNP, HS TROP, PTT, PT #### [address] Bilirubin.total [Mass/volume ] in Serum or PlasmaOrdered By: Tanner Mae on 01-24-2024 Bilirubin [Mass/Vol] 0.4 mg/dL Normal 0.3-1.0 [facility] Comment on above: Performed By: #### C K, BNP, HS TROP, PTT, PT #### [address] Jonah cells [Presence] in Blo od by Light microscopyOrdered By: Tanner Mae on 01-24-2024 Jonah cells LM Ql (Bld) Slight [facility] Calcium [Mass/volume] in Ser um or PlasmaOrdered By: Tanner Mae on 01-24-2024 Calcium [Mass/Vol] 8.7 mg/dL Normal 8.6-10.[address] [facility] Comment on above: Performed By: #### C K, BNP, HS TROP, PTT, PT #### [address] Carbon dioxide, total [Moles /volume] in Serum or PlasmaOrdered By: Tanner Mae on 01-24-2024 CO2 [Moles/Vol] 23.7 mmol/L Normal 21.0-31.0 [facility] Comment on above: Performed By: #### C K, BNP, HS TROP, PTT, PT #### [address] Chloride [Moles/volume] in S daisy or PlasmaOrdered By: Tanner Mae on 01-24-2024 Chloride [Moles/Vol] 109 mmol/L High 98-107 [facility] Comment on above: Performed By: #### C K, BNP, HS TROP, PTT, PT #### [address] Comprehensive Metabolic Pane siddharth 01-24-2024 Albumin [Mass/Vol] 3.6 g/dL Normal 3.5-5.7 [facility] Comment on above: Performed By: #### C K, BNP, HS TROP, PTT, PT #### [address] Creatinine Clr Calc Pharmacy 54.24 Normal [facility] Comment on above: Result Comment: PERF ORMED BY: [place] [address] PATHOLOGIST MANAGER CAREER LILIANA CLAY M.D. Performed By: #### C K, BNP, HS TROP, PTT, PT #### [address] GFR/1.73 sq M.predicted MDRD (S/P/Bld) [Vol rate/Area] mL/min/{1.73_m2} Normal [facility] Comment on above: Performed By: #### C K, BNP, HS TROP, PTT, PT #### [address] Creatine Kinaseon 01-24-2024 Creatine Kinase Normal 30-223 [facility] Comment on above: Result Comment: Unac ceptable specimen due to HEMOLYSIS. Redraw reordered. Performed By: #### C K, BNP, HS TROP, PTT, PT #### [address] Creatine kinase [Enzymatic a ctivity/volume] in Serum or PlasmaOrdered By: Tanner Mae on 01-24-2024 CK [Catalytic activity/Vol] 45 U/L Normal 30-223 [facility] Comment on above: Order Comment: REDRA W Result Comment: PERF ORMED BY: [place] [address] PATHOLOGIST MANAGER CAREER LILIANA CLAY M.D. Performed By: #### C K, BNP, HS TROP, PTT, PT #### [place] [address] [place] Creatinine [Mass/volume] in Serum or PlasmaOrdered By: Tanner Mae on 01-24-2024 Creatinine [Mass/Vol] 1.00 mg/dL Normal 0.60-1.20 [facility] Comment on above: Performed By: #### C K, BNP, HS TROP, PTT, PT #### [address] Diff and CBCon 01-24-2024 Crenated RBC Slight Normal [facility] Comment on above: Performed By: #### C K, BNP, HS TROP, PTT, PT #### [address] Hypochromasia Moderate Normal [facility] Comment on above: Performed By: #### C K, BNP, HS TROP, PTT, PT #### [address] Macrocytosis Slight Normal [facility] Comment on above: Performed By: #### C K, BNP, HS TROP, PTT, PT #### [address] Mean Corpuscular HGB Conc 30.1 g/dL Low 32.0-35.0 [facility] Comment on above: Performed By: #### C K, BNP, HS TROP, PTT, PT #### [address] Microcytosis Slight Normal [facility] Comment on above: Performed By: #### C K, BNP, HS TROP, PTT, PT #### [address] Monocytes/100 WBC (Bld) 18.17 % Normal 0.00-20.00 [facility] Comment on above: Performed By: #### C K, BNP, HS TROP, PTT, PT #### [address] Ovalocytes Slight Normal [facility] Comment on above: Performed By: #### C K, BNP, HS TROP, PTT, PT #### [address] Platelet Estimate Normal Normal Normal [facility] Comment on above: Performed By: #### C K, BNP, HS TROP, PTT, PT #### [address] Platelet Morphology Normal Normal Normal [facility] Comment on above: Result Comment: PERF ORMED BY: [place] [address] PATHOLOGIST MANAGER CAREER LILIANA CLAY M.D. Performed By: #### C K, BNP, HS TROP, PTT, PT #### [address] Poikilocytosis Moderate Normal [facility] Comment on above: Performed By: #### C K, BNP, HS TROP, PTT, PT #### [address] Polychromasia Slight Normal [facility] Comment on above: Performed By: #### C K, BNP, HS TROP, PTT, PT #### [address] Stomatocytes Slight Normal [facility] Comment on above: Performed By: #### C K, BNP, HS TROP, PTT, PT #### [address] Target Cells Slight Normal [facility] Comment on above: Performed By: #### C K, BNP, HS TROP, PTT, PT #### [address] Tear Drop Cells Slight Normal The [facility] Comment on above: Performed By: #### C K, BNP, HS TROP, PTT, PT #### [address] ECG 12 lead ECGon 01-24-2024 ECG 12 lead ECG [facility] [place] [address] [place] [address] Electrocardiograph Report Signed Patient: Essence Vincent MR#: [id number] : 1970 Acct:[id number] Age/Sex: 53 / F ADM Date: 01/24/24 Loc: ER Room: Type: [facility] ER Attending Dr: Ordering Provider: Tanner [...] Atrial flutter Confirmed by TANNER MAE MD ([id number]) on 01/25/2024 5:26:09 AM Referred By: Electronically Signed By:TANNER MAE MD Transcribed By: MUS Signed By Tanner Mae Jr, MD 0526 Normal [facility] Eosinophils Auto (Bld) [#/Vo l]Ordered By: Tanner Mae on 01-24-2024 Eosinophils (Bld) [#/Vol] N/A [facility] Eosinophils/100 WBC Auto (Bl d)Ordered By: Tanner Mae on 01-24-2024 Eosinophils/100 WBC (Bld) N/A [facility] Eosinophils/100 leukocytes i n Blood by Manual countOrdered By: Tanner Mae on 01-24-2024 Eosinophils/100 WBC (Bld) 1 % Normal 1-3 [facility] Comment on above: Performed By: #### C K, BNP, HS TROP, PTT, PT #### [facility] [address] Erythrocyte distribution wid th [Ratio] by Automated countOrdered By: Tanner Mae on 01-24-2024 Erythrocyte distribution width (RBC) [Ratio] 22.3 % High 11.9-15.3 [facility] Comment on above: Performed By: #### C K, BNP, HS TROP, PTT, PT #### [facility] [address] Erythrocytes [#/volume] in B lood by Automated countOrdered By: Tanner Mae on 01-24-2024 RBC (Bld) [#/Vol] 4.94 10*6/uL Normal 3.60-5.00 [facility] Comment on above: Performed By: #### C K, BNP, HS TROP, PTT, PT #### [facility] [address] Glucose [Mass/volume] in Ser um or PlasmaOrdered By: Tanner Mae on 01-24-2024 Glucose [Mass/Vol] 86 mg/dL Normal 70-[address] [facility] Comment on above: ADA recommended refe rence rangeRandom Glucose Reference Range is dependent on time and content of last meal. Glucose of more than 200 mg/dL in a nonstressed, ambulatory subject supports the diagnosis of Diabetes Mellitus. Result Comment: [place] om Glucose Reference Range is dependent on time and content of last meal. Glucose of more than 200 mg/dL in a nonstressed, ambulatory subject supports the diagnosis of Diabetes Mellitus. ADA recommended reference range Performed By: #### C K, BNP, HS TROP, PTT, PT #### [address] Hematocrit [Volume Fraction] of Blood by Automated countOrdered By: Tanner Mae on 01-24-2024 Hematocrit (Bld) [Volume fraction] 32.3 % Low 34.0-46.4 [facility] Comment on above: Performed By: #### C K, BNP, HS TROP, PTT, PT #### [facility] [address] [place] [address] Hemoglobin [Mass/volume] in BloodOrdered By: Tanner Mae on 01-24-2024 Hemoglobin (Bld) [Mass/Vol] 9.7 g/dL Low 11.8-15.4 [facility] Comment on above: Performed By: #### C K, BNP, HS TROP, PTT, PT #### [address] Hypochromia LM Ql (Bld)Order ed By: Tanner Mae on 01-24-2024 Hypochromia Ql (Bld) Moderate [facility] INR in Platelet poor plasma by Coagulation assayOrdered By: Tanner Mae on 01-24-2024 INR Coag (PPP) [Relative time] 1.0 {INR} Normal [facility] Comment on above: INR Therapeutic [...] K, BNP, HS TROP, PTT, PT #### [address] Leukocytes [#/volume] correc janis for nucleated erythrocytes in Blood by Automated counOrdered By: Tanner Mae on 01-24-2024 WBC corrected for nucl RBC Auto (Bld) [#/Vol] 10.2 10*3/uL 3.8-11.6 [facility] Leukocytes [#/volume] in Blo od by Automated countOrdered By: Tanner Mae on 01-24-2024 WBC (Bld) [#/Vol] 10.2 10*3/uL Normal 3.8-11.6 [facility] Comment on above: Performed By: #### C K, BNP, HS TROP, PTT, PT #### [address] Lymphocytes Auto (Bld) [#/Vo l]Ordered By: Tanner Mae on 01-24-2024 Lymphocytes (Bld) [#/Vol] N/A [facility] Lymphocytes/100 WBC Auto (Bl d)Ordered By: Tanner Mae on 01-24-2024 Lymphocytes/100 WBC (Bld) N/A [facility] Lymphocytes/100 leukocytes i n Blood by Manual countOrdered By: Tanner Mae on 01-24-2024 Lymphocytes/100 WBC (Bld) 22 % Normal 18-42 [facility] Comment on above: Performed By: #### C K, BNP, HS TROP, PTT, PT #### [address] [address] [place] MCH [Entitic mass] by Automa janis countOrdered By: Tanner Mae on 01-24-2024 MCH (RBC) [Entitic mass] 19.7 pg Low 24.7-34.3 [facility] Comment on above: Performed By: #### C K, BNP, HS TROP, PTT, PT #### [facility] [address] [place] [address] MCHC Auto (RBC) [Mass/Vol]Or dered By: Tanner Mae on 01-24-2024 MCHC (RBC) [Mass/Vol] 30.1 g/dL Low 32.0-35.0 [facility] MCV [Entitic volume] by Auto mated countOrdered By: Tanner Mae on 01-24-2024 MCV (RBC) [Entitic vol] 65.4 fL Low 80-100 [facility] Comment on above: Performed By: #### C K, BNP, HS TROP, PTT, PT #### [facility] [address] [place] [address] Macrocytes LM Ql (Bld)Ordere d By: Tanner Mae on 01-24-2024 Macrocytes Ql (Bld) Slight [facility] Manual blood segmented neutr ophils/100 leukocytesOrdered By: Tanner Mae on 01-24-2024 Segmented neutrophils/100 WBC (Bld) 69 % Normal 50-70 [facility] Comment on above: Performed By: #### C K, BNP, HS TROP, PTT, PT #### [facility] [address] [place] [address] Microcytes LM Ql (Bld)Ordere d By: Tanner Mae on 01-24-2024 Microcytes Ql (Bld) Slight [facility] Monocyte distribution width [Entitic volume] in Blood by AutomatedOrdered By: Tanner Mae on 01-24-2024 Monocyte distribution width Auto (Bld) [Entitic vol] 18.17 % 0.00-20.00 [facility] Monocytes Auto (Bld) [#/Vol] Ordered By: Tanner Mae on 01-24-2024 Monocytes (Bld) [#/Vol] N/A [facility] Monocytes/100 WBC Auto (Bld) Ordered By: Tanner Mae on 01-24-2024 Monocytes/100 WBC (Bld) N/A [facility] Monocytes/100 leukocytes in Blood by Manual countOrdered By: Tanner Mae on 01-24-2024 Monocytes/100 WBC (Bld) 8 % Normal 2-11 [facility] Comment on above: Performed By: #### C K, BNP, HS TROP, PTT, PT #### [facility] [address] Neutrophils Auto (Bld) [#/Vo l]Ordered By: Tanner Mae on 01-24-2024 Neutrophils (Bld) [#/Vol] N/A [facility] Neutrophils/100 WBC Auto (Bl d)Ordered By: Tanner Mae on 01-24-2024 Neutrophils/100 WBC (Bld) N/A [facility] No Panel InformationOrdered By: Tanner Mae on 01-24-2024 Estimated GFR (CKD-EPI) > 60.0 mL/Min [facility] Creatinine Clearance (Chem 54.24 [facility] Nucleated erythrocytes [Pres ence] in Blood by Automated countOrdered By: Tanner Mae on 01-24-2024 Nucleated RBC Auto Ql (Bld) N/A [facility] Ovalocyte detectionOrdered B y: Tanner Mae on 01-24-2024 Ovalocytes LM Ql (Bld) Slight [facility] Partial Thromboplastin Timeo n 01-24-2024 aPTT Coag (Bld) [Time] 19.2 s Low 25.1-36.5 Th e [facility] Comment on above: Result Comment: A he matocrit value greater than 55% may lead to inaccurate results in coagulation testing. Patients having hematocrit values >55% require a special collection tube for coagulation studies. Please contact the laboratory at [phone] for redraw instructions. PERFORMED BY: [place] [id number] PATHOLOGIST MANAGER CAREER LILIANA CLAY M.D. Performed By: #### C K, BNP, HS TROP, PTT, PT #### [facility] [address] [place], [place] [id number] [facility] Platelet adequacy [Presence] in Blood by Light microscopyOrdered By: Tanner Mae on 01-24-2024 Platelets LM Ql (Bld) Normal Normal [facility] Platelet mean volume [Entiti c volume] in Blood by Automated countOrdered By: Tanner Mae on 01-24-2024 Platelet mean volume (Bld) [Entitic vol] 9.1 fL Normal 6.3-10.7 [facility] Comment on above: Performed By: #### C K, BNP, HS TROP, PTT, PT #### [facility] [address] Platelet morphology finding [Identifier] in BloodOrdered By: Tanner Mae on 01-24-2024 Platelet morphology finding Nom (Bld) Normal Normal [facility] Platelets [#/volume] in Bloo d by Automated countOrdered By: Tanner Mae on 01-24-2024 Platelets (Bld) [#/Vol] 214 10*3/uL Normal 150-450 [facility] Comment on above: Performed By: #### C K, BNP, HS TROP, PTT, PT #### [facility] [address] [place] [address] [place] Poikilocytosis [Presence] in Blood by Light microscopyOrdered By: Tanner Mae on 01-24-2024 Poikilocytosis LM Ql (Bld) Moderate [facility] Polychromasia [Presence] in Blood by Light microscopyOrdered By: Tanner Mae on 01-24-2024 Polychromasia LM Ql (Bld) Slight [facility] Potassium [Moles/volume] in Serum or PlasmaOrdered By: Tanner Mae on 01-24-2024 Potassium [Moles/Vol] 3.5 mmol/L Normal 3.5-5.1 [facility] Comment on above: Performed By: #### C K, BNP, HS TROP, PTT, PT #### [facility] [address] [place] [address] [place] Protein [Mass/volume] in Ser um or PlasmaOrdered By: Tanner Mae on 01-24-2024 Protein [Mass/Vol] 6.6 g/dL Normal 6.4-8.[address] [facility] Comment on above: Performed By: #### C K, BNP, HS TROP, PTT, PT #### [facility] [address] [place] [address] Prothrombin time (PT)Ordered By: Tanner Mae on 01-24-2024 PT Coag (PPP) [Time] 11.8 s Normal 9.0-12.9 [facility] Comment on above: A hematocrit value g reater than 55% may lead to inaccurate results in coagulation testing. Patients having hematocrit values >55% require a special collection tube for coagulation studies. Please contact the laboratory at [phone] for redraw instructions. Result Comment: A he matocrit value greater than 55% may lead to inaccurate results in coagulation testing. Patients having hematocrit values >55% require a special collection tube for coagulation studies. Please contact the laboratory at [phone] for redraw instructions. Performed By: #### C K, BNP, HS TROP, PTT, PT #### [address] RBC morphologyOrdered By: Isabella Mae on 01-24-2024 RBC morphology finding Nom (Bld) N/A [facility] Red blood cell stomatocyte d etectionOrdered By: Tanner Mae on 01-24-2024 Stomatocytes LM Ql (Bld) Slight [facility] Serum globulin measurement b y calculation (mass/volume)Ordered By: Tanner Mae on 01-24-2024 Globulin (S) [Mass/Vol] 3.0 g/dL Normal [facility] Comment on above: Performed By: #### C K, BNP, HS TROP, PTT, PT #### [facility] [address] [place] [address] Serum or plasma albumin/glob ulin mass ratioOrdered By: Tanner Mae on 01-24-2024 Albumin/Globulin [Mass ratio] 1.2 {ratio} Normal [facility] Comment on above: Performed By: #### C K, BNP, HS TROP, PTT, PT #### [facility] [address] [place] [address] Serum or plasma anion gap de terminationOrdered By: Tanner Mae on 01-24-2024 Anion gap [Moles/Vol] 12.8 mmol/L Normal 6.0-15.0 [facility] Comment on above: Performed By: #### C K, BNP, HS TROP, PTT, PT #### [address] Sodium [Moles/volume] in Ser um or PlasmaOrdered By: Tanner Mae on 01-24-2024 Sodium [Moles/Vol] 142 mmol/L Normal 136-[address] [facility] Comment on above: Performed By: #### C K, BNP, HS TROP, PTT, PT #### [address] Target cellsOrdered By: Brett Mae on 01-24-2024 Target cells LM Ql (Bld) Slight [facility] Teardrop cell detectionOrder ed By: Tanner Mae on 01-24-2024 Dacrocytes LM Ql (Bld) Slight [facility] Troponin I High Sensitivityo n 01-24-2024 Troponin I High Sensitivity 13.2 pg/mL Normal 0.0-15.0 [facility] Comment on above: Result Comment: PERF ORMED BY: [place] [address] PATHOLOGIST MANAGER CAREER LILIANA CLAY M.D. Performed By: #### C K, BNP, HS TROP, PTT, PT #### [address] Troponin I.cardiac [Mass/vol ume] in Serum or Plasma by Detection limit <= 0.01 ng/Ordered By: Tanner Mae on 01-24-2024 Troponin I.cardiac DL <= 0.01 ng/mL [Mass/Vol] 13.2 pg/mL 0.0-15.0 [facility] Urea nitrogen [Mass/volume] in Serum or PlasmaOrdered By: Tanner Mae on 01-24-2024 Urea nitrogen [Mass/Vol] 23 mg/dL Normal 7-25 [facility] Comment on above: Performed By: #### C K, BNP, HS TROP, PTT, PT #### [address] XR chest 1V portableon 01-23 XR chest 1V portable [facility] [place] [address] [place] [id number] XRay Report Signed Patient: Essence Vincent MR#: [id number] : 1970 Acct:[id number] Age/Sex: 53 / F ADM Date: 01/24/24 Loc: ER Room: Type: [facility] ER Attending Dr: Copies to: Tanner [...] [place] Couch M.D.01/24/2024 11:31 AM Dictation Location: [place] [address] Transcribed By: [facility] 01/24/24 1131 Dictated By: [place] Couch II, MD 01/24/24 1130 Signed By: 01/24/24 1131 Normal [facility] BUN, POCon 01-04-2024 Urea nitrogen [Mass/Vol] 22 mg/dL Normal - [facility] Creatinine w/GFR, POCon Creatinine [Mass/Vol] 0.7 mg/dL Normal 0.51-1.19 [facility] GFR/1.73 sq M.predicted among non-blacks MDRD (S/P/Bld) [Vol rate/Area] mL/min/{1.73_m2} Normal [facility] Comment on above: Result Comment: These [...] 01-04-2024 Glucose [Mass/Vol] 84 mg/dL Normal 74-100 [facility] Hgb/Hct, POCon 01-04-2024 Hematocrit (Bld) [Volume fraction] 40 % Normal 36-46 [facility] Hemoglobin (Bld) [Mass/Vol] 13.8 g/dL Normal 12.0-16.0 [facility] PT (Whole Blood)on Intl. Normal. Ratio 1.1 Normal [facility] Comment on above: Result Comment: Therapeutic Range: Moderate Anticoagulant Intensity: INR = 2.0-3.0 High Anticoagulant Intensity: INR = 2.5-3.5 PT Coag (PPP) [Time] 13.5 s Normal 10.4-14.2 [facility] Potassium (POC)on 01-04-2024 Potassium [Moles/Vol] 3.3 mmol/L Low 3.5-4.5 [facility] Sodium (POC)on 01-04-2024 Sodium [Moles/Vol] 142 mmol/L Normal 138-146 [facility] Protime-INRon 10-12-2023 INR Coag (Bld) [Relative time] 2 {INR} [employer] [facility] PT Coag (PPP) [Time] 24.1 s seconds [facility] [employer] Protime-INRon 10-11-2023 INR Coag (Bld) [Relative time] 1.8 {INR} [facility] PT Coag (PPP) [Time] 21.1 s seconds [facility] Basic Metab w/rfx MGon 02-08 -2024 GFR/1.73 sq M.predicted among non-blacks MDRD (S/P/Bld) [Vol rate/Area] mL/min/{1.73_m2} Normal >[address] [facility] Comment on above: Result Comment: These [...] C DP, BMPX, PT #### [facility] [address] [place] [address] Greeting Card Editor: Mike Bill DO Potassium [Moles/Vol] 4.4 mmol/L Normal 3.7-5.3 [facility] Comment on above: Result Comment: SPEC IMEN SLIGHTLY HEMOLYZED, RESULTS MAY BE ADVERSELY AFFECTED. Performed By: #### C DP, BMPX, PT #### [facility] [address] [facility] [place] [address] Greeting Card Editor: Mike Bill DO Anion gap [Moles/Vol] 12 mmol/L Normal 9-17 [facility] Comment on above: Performed By: #### C BIANCA BMPX, PT #### [facility] [place] [address] Greeting Card Editor: Mike Bill DO Calcium [Mass/Vol] 9.2 mg/dL Normal 8.6-10.[address] [facility] Comment on above: Performed By: #### C BIANCA, BMPX, PT #### [facility] [address] [facility] [place] [address] Greeting Card Editor: Mike Bill DO Chloride [Moles/Vol] 104 mmol/L Normal 98-107 [facility] Comment on above: Performed By: #### C DP, BMPX, PT #### [facility] [address] [place] [address] Greeting Card Editor: Mike Bill DO CO2 [Moles/Vol] 24 mmol/L Normal 20-[address] [facility] Comment on above: Performed By: #### C DP, BMPX, PT #### [facility] [address] [place] [facility] [place] [address] Greeting Card Editor: Mike Bill DO Creatinine [Mass/Vol] 1.0 mg/dL High 0.5-0.9 [facility] Comment on above: Performed By: #### C DP, BMPX, PT #### [facility] [place] [facility] [place] [address] Greeting Card Editor: Mike Bill DO Glucose [Mass/Vol] 96 mg/dL Normal 70-[address] [facility] Comment on above: Performed By: #### C DP, BMPX, PT #### [facility] [address] [place] [address]. [place] [address] Greeting Card Editor: Mike Bill DO Sodium [Moles/Vol] 140 mmol/L Normal 135-[address] [facility] Comment on above: Performed By: #### C BIANCA, BMPX, PT #### [facility] [address] [place] [address]. [place] [address] Greeting Card Editor: Mike Bill DO Urea nitrogen [Mass/Vol] 12 mg/dL Normal 6-[address] [facility] Comment on above: Performed By: #### C DP, BMPX, PT #### [facility] [address] [place] [address]. [place] [address] Greeting Card Editor: Mike Bill DO Basic Metabolic Panel w/ Ref sam to MGon 10-07-2023 Anion gap [Moles/Vol] 12 mmol/L 9 - 17 mmol/L [facility] Calcium [Mass/Vol] 9.2 mg/dL 8.6 - 10. 4 mg/dL [facility] Chloride [Moles/Vol] 104 mmol/L 98 - 10 7 mmol/L [facility] CO2 [Moles/Vol] 24 mmol/L 20 - 31 mmol/L [facility] Creatinine [Mass/Vol] 1.0 mg/dL High 0.5 - 0.9 mg/dL [facility] GFR/1.73 sq M.predicted MDRD (S/P/Bld) [Vol rate/Area] - PINF [facility] Comment on above: These results [...] [Mass/Vol] 96 mg/dL 70 - 99 mg/dL [facility] Interpretation and review of laboratory results Abnormal [facility] Potassium [Moles/Vol] 4.4 mmol/L 3.7 - 5.3 mmol/L [facility] Comment on above: SPECIMEN SLIGHTLY HE MOLYZED, RESULTS MAY BE ADVERSELY AFFECTED. Sodium [Moles/Vol] 140 mmol/L 135 - 144 mmol/L [facility] Urea nitrogen [Mass/Vol] 12 mg/dL 6 - 20 mg/dL [facility] CBC with Diffon 10-07-2023 Abs. Basophil 0.16 k/uL Normal 0.0-0.[address] [facility] Comment on above: Performed By: #### C DP BMPX, PT #### [facility] [address] [address] Greeting Card Editor: Mike Bill DO Abs.Neutrophil (Seg) 5.03 k/uL Normal 1.3-9.1 [facility] Comment on above: Performed By: #### C DP, BMPX, PT #### [facility] [address] [facility] [place] [address] Greeting Card Editor: Mike Bill DO Basophils/100 WBC (Bld) 2 % Normal 0-[address] [facility] Comment on above: Performed By: #### C DP, BMPX, PT #### [facility] [address] [facility] [place] [address] Greeting Card Editor: Mike Bill DO Eosinophils (Bld) [#/Vol] 0.08 10*3/uL Normal 0.0-0.[address] [facility] Comment on above: Performed By: #### C DP, BMPX, PT #### [facility] [address] [place] [address]. [place] [address] Greeting Card Editor: Mike Bill DO Eosinophils/100 WBC (Bld) 1 % Normal 0-[address] [facility] Comment on above: Performed By: #### C DP, BMPX, PT #### [facility] [address] [place] [address]. [place] [address] Greeting Card Editor: Mike Bill DO Lymphocytes (Bld) [#/Vol] 1.86 10*3/uL Normal 1.0-4.[address] [facility] Comment on above: Performed By: #### C DP, BMPX, PT #### [facility] [address] [place] [address]. [place] [address] Greeting Card Editor: Mike Bill DO Lymphocytes/100 WBC (Bld) 23 % Low 24-[address] [facility] Comment on above: Performed By: #### C DP, BMPX, PT #### [facility] [address] [place] [address]. [place] [address] Greeting Card Editor: Mike Bill DO Monocytes (Bld) [#/Vol] 0.97 10*3/uL Normal 0.1-1.[address] [facility] Comment on above: Performed By: #### C DP, BMPX, PT #### [facility] [address] [facility] [place] [address] Greeting Card Editor: Mike Bill DO Monocytes/100 WBC (Bld) 12 % High 1-[address] [facility] Comment on above: Performed By: #### C DP, BMPX, PT #### [facility] [address] [facility] [place] [address] Greeting Card Editor: Mike Bill DO Morphology Jeffery (Bld) [Interp] MICROCYTOSIS PRESENT Normal [facility] Comment on above: Result Comment: HYPO CHROMIA PRESENT ANISOCYTOSIS PRESENT 1+ ACANTHOCYTES FEW ELLIPTOCYTES Performed By: #### C DP, BMPX, PT #### [facility] [place] [address] Greeting Card Editor: Mike Bill DO Neutrophil (Seg) 62 % Normal 36-66 [facility] Comment on above: Performed By: #### C DP, BMPX, PT #### [facility] [place] [address] Greeting Card Editor: Mike Bill DO Erythrocyte distribution width (RBC) [Ratio] 23.8 % High 11.5-14.[address] [facility] Comment on above: Performed By: #### C DP, BMPX, PT #### [facility] [place] [address] Greeting Card Editor: Mike Bill DO Hematocrit (Bld) [Volume fraction] 33.8 % Low 36-[address] [facility] Comment on above: Performed By: #### C DP, BMPX, PT #### [facility] [place] [address] Greeting Card Editor: Mike Bill DO Hemoglobin (Bld) [Mass/Vol] 9.6 g/dL Low 12.0-16.[address] [facility] Comment on above: Performed By: #### C DP, BMPX, PT #### [facility] [place] [address] Greeting Card Editor: Mike Bill DO MCH (RBC) [Entitic mass] 18.1 pg Low 26-[address] [facility] Comment on above: Performed By: #### C BIANCA, BMPX, PT #### [facility] [address] [place] [address] Greeting Card Editor: Mike Bill DO MCHC (RBC) [Mass/Vol] 28.5 g/dL Low 31-37 [facility] Comment on above: Performed By: #### C DP, BMPX, PT #### [facility] [address] [place] [address] Greeting Card Editor: Mike Bill DO MCV (RBC) [Entitic vol] 63.5 fL Low 80-[address] [facility] Comment on above: Performed By: #### C BIANCA, BMPX, PT #### [facility] [address] [place] [address] Greeting Card Editor: Mike Bill DO Platelet mean volume (Bld) [Entitic vol] 8.5 fL Normal 6.0-12.[address] [facility] Comment on above: Performed By: #### C BIANCA, BMPX, PT #### [facility] [address] [place] [address] Greeting Card Editor: Mike Bill DO Platelets (Bld) [#/Vol] 214 10*3/uL Normal 150-[address] [facility] Comment on above: Performed By: #### C DP, BMPX, PT #### [facility] [address] [place] [address] Greeting Card Editor: Mike Bill DO RBC (Bld) [#/Vol] 5.32 10*6/uL High 4.0-5.[address] [facility] Comment on above: Performed By: #### C LESA VALENZUELAX, PT #### [facility] [address] [place] [address] Greeting Card Editor: Mike Bill DO WBC (Bld) [#/Vol] 8.1 10*3/uL Normal 3.5-11.[address] [facility] Comment on above: Performed By: #### C BIANCA BMPX, PT #### [facility] [address] [facility] [place] [address] Greeting Card Editor: Mike Bill DO CBC with auto differentialon 10-07-2023 Basophils (Bld) [#/Vol] 0.16 10*3/uL [facility] Basophils/100 WBC (Bld) 2 % 0 - 2 % [facility] Eosinophils (Bld) [#/Vol] 0.08 10*3/uL [facility] Eosinophils/100 WBC (Bld) 1 % 0 - 4 % [facility] Erythrocyte distribution width (RBC) [Ratio] 23.8 % High 11.5 - 14.9 % [facility] Hematocrit (Bld) [Volume fraction] 33.8 % Low 36 - 46 % [facility] Hemoglobin (Bld) [Mass/Vol] 9.6 g/dL Low 12.0 - 16.0 g/dL [facility] Interpretation and review of laboratory results Abnormal [facility] Lymphocytes/100 WBC (Bld) 23 % Low 24 - 44 % [facility] Lymphocytes/100 WBC (Bld) 1.86 % [facility] MCH (RBC) [Entitic mass] 18.1 pg Low 26 - 34 pg [facility] MCHC (RBC) [Mass/Vol] 28.5 g/dL Low 31 - 3 7 g/dL [facility] MCV (RBC) [Entitic vol] 63.5 fL Low 80 - 100 fL [facility] Monocytes/100 WBC (Bld) 12 % High 1 - 7 % [facility] Monocytes/100 WBC (Bld) 0.97 % [employer] [facility] Morphology Jeffery (Bld) [Interp] MICROCYTOSIS PRESENT [facility] Morphology Jeffery (Bld) [Interp] HYPOCHROMIA PRESENT [employer] Morphology Jeffery (Bld) [Interp] ANISOCYTOSIS PRESENT [employer] Morphology Jeffery (Bld) [Interp] 1+ ACANTHOCYTES FEW ELLIPTOCYTES [employer] [facility] Neutrophils/100 WBC (Bld) 62 % 36 - 66 % [facility] Platelet mean volume (Bld) [Entitic vol] 8.5 fL 6.0 - 12.0 fL [employer] Platelets (Bld) [#/Vol] 214 10*3/uL [facility] RBC (Bld) [#/Vol] 5.32 10*6/uL High 4.0 - 5.2 m/uL [facility] Segmented neutrophils/100 WBC (Bld) 5.03 % [facility] WBC other (Bld) [#/Vol] 8.1 [facility] EKG 12 LeadOrdered By: Satish Whitman on 10-07-2023 Atrial Rate 80 BPM [employer] Work Phone: [phone] P [place] 108 degrees [employer] Work Phone: [phone] P-R Interval 268 ms [employer] Work Phone: [phone] Q-T Interval 478 ms [employer] Work Phone: [phone] QRS Duration 206 ms [employer] Work Phone: [phone] QTc Calculation (Bazett) 551 ms [facility] Work Phone: [phone] R [place] -72 degrees [facility] Work Phone: [phone] T [place] 98 degrees [facility] Work Phone: [phone] Ventricular Rate 80 BPM [employer] Work Phone: [phone] [employer] Work Phone: EKG 12 Leadon 10-07-2023 AV dual-paced rhythm with prolonged AV conduction Abnormal ECG When compared with ECG of 05-OCT-2023 19:31, (unconfirmed) No significant change was found [facility] Satish Valero MD - 10/07/2023 AV dual-paced rhythm with prolonged AV conduction Abnormal ECG When compared with ECG of 05-OCT-2023 19:31, (unconfirmed) No significant change was found [facility] PTon 10-07-2023 INR Coag (PPP) [Relative time] 1.1 {INR} Normal [facility] Comment on above: Result Comment: Therapeutic Range: Moderate Anticoagulant Intensity: INR = 2.0-3.0 High Anticoagulant Intensity: INR = 2.5-3.5 Performed By: #### C DP, BMPX, PT #### [facility] [address] [place] [address] Greeting Card Editor: Mike Bill DO PT Coag (PPP) [Time] 14.9 s High 11.8-14.6 [facility] Comment on above: Performed By: #### C DP, BMPX, PT #### [facility] [address] [place] [address] Greeting Card Editor: Mike Bill DO Protime-INRon 10-07-2023 INR Coag (PPP) [Relative time] 1.1 {INR} [facility] Comment on above: Therapeutic Range: Moderate Anticoagulant Intensity: INR = 2.0-3.0 High Anticoagulant Intensity: INR = 2.5-3.5 Interpretation and review of laboratory results Abnormal [facility] PT Coag (PPP) [Time] 14.9 s High [facility] Basic Metab w/rfx MGon 10-06 Potassium [Moles/Vol] 4.3 mmol/L Normal 3.7-5.3 [facility] Comment on above: Result Comment: SPEC IMEN MODERATELY HEMOLYZED, RESULTS MAY BE ADVERSELY AFFECTED Performed By: #### B MPX ####[facility] [id number] [place] [address] Lab Director: Mike Bill DO Anion gap [Moles/Vol] 14 mmol/L Normal 9-17 [facility] Comment on above: Performed By: #### B MPX ####[facility] [id number], [place] [phone] Director: Mike Bill DO Calcium [Mass/Vol] 9.0 mg/dL Normal 8.6-10.[address] [facility] Comment on above: Performed By: #### B MPX ####[facility] [id number], [place] [phone] Director: Mike Bill DO Chloride [Moles/Vol] 95 mmol/L Low 98-107 [facility] Comment on above: Performed By: #### B MPX ####[facility] [id number] [facility].[place], [place] [phone] Director: Mike Bill DO CO2 [Moles/Vol] 23 mmol/L Normal 20-[address] [facility] Comment on above: Performed By: #### B MPX ####[facility] [id number] [facility].[place], [place] [phone] Director: Mike Bill DO Creatinine [Mass/Vol] 1.2 mg/dL High 0.5-0.9 [facility] Comment on above: Performed By: #### B MPX ####[facility] [id number] [facility].[place], [place] [phone] Director: Mike Bill DO GFR/1.73 sq M.predicted among non-blacks MDRD (S/P/Bld) [Vol rate/Area] 54 mL/min/{1.73_m2} Low >[address] [facility] Comment on above: Result Comment: These [...] Performed By: #### B MPX ####[facility] [id number] [facility] [place] [address] Lab Director: Mike Bill DO Glucose [Mass/Vol] 97 mg/dL Normal 70-[address] [facility] Comment on above: Performed By: #### B MPX ####[facility] [id number] [facility] [place] [address] Lab Director: Mike Bill DO Sodium [Moles/Vol] 132 mmol/L Low 135-[address] [facility] Comment on above: Performed By: #### B MPX ####[facility] [id number] [facility] [place] [address] Lab Director: Mike Bill DO Urea nitrogen [Mass/Vol] 16 mg/dL Normal 6-[address] [facility] Comment on above: Performed By: #### B MPX ####[facility] [id number] [facility] [place] [address] Lab Director: Mike Bill DO Basic Metabolic Panel w/ Ref sam to MGon 10-06-2023 Anion gap [Moles/Vol] 14 mmol/L 9 - 17 mmol/L [facility] Calcium [Mass/Vol] 9.0 mg/dL 8.6 - 10. 4 mg/dL [facility] Chloride [Moles/Vol] 95 mmol/L Low 98 - 10 7 mmol/L [facility] CO2 [Moles/Vol] 23 mmol/L 20 - 31 mmol/L [facility] Creatinine [Mass/Vol] 1.2 mg/dL High 0.5 - 0.9 mg/dL [facility] GFR/1.73 sq M.predicted MDRD (S/P/Bld) [Vol rate/Area] 54 mL/min/{1.73_m2} Low - PINF [facility] Comment on above: These results [...] [Mass/Vol] 97 mg/dL 70 - 99 mg/dL [facility] Interpretation and review of laboratory results Abnormal [facility] Potassium [Moles/Vol] 4.3 mmol/L 3.7 - 5.3 mmol/L [facility] Comment on above: SPECIMEN MODERATELY HEMOLYZED, RESULTS MAY BE ADVERSELY AFFECTED Sodium [Moles/Vol] 132 mmol/L Low 135 - 144 mmol/L [facility] Urea nitrogen [Mass/Vol] 16 mg/dL 6 - 20 mg/dL [facility] CBC with Diffon 10-06-2023 Abs. Basophil 0.13 k/uL Normal 0.0-0.[address] [facility] Comment on above: Performed By: #### C DP PT, REJEC #### [facility] [address] [place], [place] [id number] Greeting Card Editor: Mike Bill DO Abs.Neutrophil (Seg) 10.51 k/uL High 1.3-9.1 [facility] Comment on above: Performed By: #### C BIANCA PT, REJEC #### [facility] [address] [place] [address] Greeting Card Editor: Mike Bill DO Basophils/100 WBC (Bld) 1 % Normal 0-[address] [facility] Comment on above: Performed By: #### C DP PT, REJEC #### [facility] [address] [place] [address] Greeting Card Editor: Mike Bill DO Eosinophils (Bld) [#/Vol] 0.00 10*3/uL Normal 0.0-0.[address] [facility] Comment on above: Performed By: #### C DP, PT, REJEC #### [facility] [address] [facility] [place] [address] Greeting Card Editor: Mike Bill DO Eosinophils/100 WBC (Bld) 0 % Normal 0-[address] [facility] Comment on above: Performed By: #### C DP, PT, REJEC #### [facility] [address] [facility] [place] [address] Greeting Card Editor: Mike Bill DO Lymphocytes (Bld) [#/Vol] 1.73 10*3/uL Normal 1.0-4.[address] [facility] Comment on above: Performed By: #### C DP, PT, REJEC #### [facility] [place] [address] Greeting Card Editor: Mike Bill DO Lymphocytes/100 WBC (Bld) 13 % Low 24-[address] [facility] Comment on above: Performed By: #### C DP, PT, REJEC #### [facility] [place] [address] Greeting Card Editor: Mike Bill DO Monocytes (Bld) [#/Vol] 0.93 10*3/uL Normal 0.1-1.[address] [facility] Comment on above: Performed By: #### C DP, PT, REJEC #### [facility] [facility] [place] [address] Greeting Card Editor: Mike Bill DO Monocytes/100 WBC (Bld) 7 % Normal 1-[address] [facility] Comment on above: Performed By: #### C DP, PT, REJEC #### [facility] [address] [place] [address] Greeting Card Editor: Mike Bill DO Morphology Jeffery (Bld) [Interp] ANISOCYTOSIS PRESENT Normal [facility] Comment on above: Result Comment: HYPO CHROMIA PRESENT MICROCYTOSIS PRESENT 1+ ELLIPTOCYTES 1+ ECHINOCYTES FEW SCHISTOCYTES Performed By: #### C DP, PT, REJEC #### [facility] [address] [place] [address] Greeting Card Editor: Mike Bill DO Neutrophil (Seg) 79 % High 36-66 [facility] Comment on above: Performed By: #### C DP, PT, REJEC #### [facility] [address] [place] [address]. [place] [address] Greeting Card Editor: Mike Bill DO Erythrocyte distribution width (RBC) [Ratio] 23.8 % High 11.5-14.[address] [facility] Comment on above: Performed By: #### C DP, PT, REJEC #### [facility] [place] [address] Greeting Card Editor: Mike Bill DO Hematocrit (Bld) [Volume fraction] 38.6 % Normal 36-[address] [facility] Comment on above: Performed By: #### C DP, PT, REJEC #### [facility] [place] [address] Greeting Card Editor: Mike Bill DO Hemoglobin (Bld) [Mass/Vol] 10.9 g/dL Low 12.0-16.[address] [facility] Comment on above: Performed By: #### C DP, PT, REJEC #### [facility] [facility] [place] [address] Greeting Card Editor: Mike Bill DO MCH (RBC) [Entitic mass] 18.1 pg Low 26-[address] [facility] Comment on above: Performed By: #### C DP, PT, REJEC #### [facility] [place] [address] Greeting Card Editor: Mike Bill DO MCHC (RBC) [Mass/Vol] 28.1 g/dL Low 31-37 [facility] Comment on above: Performed By: #### C DP, PT, REJEC #### [facility] [address] [place] [address] Greeting Card Editor: Mike Bill DO MCV (RBC) [Entitic vol] 64.3 fL Low 80-[address] [facility] Comment on above: Performed By: #### C DP, PT, REJEC #### [facility] [address] [place] [address] Greeting Card Editor: Mike Bill DO Platelet mean volume (Bld) [Entitic vol] 9.2 fL Normal 6.0-12.[address] [facility] Comment on above: Performed By: #### C DP, PT, REJEC #### [facility] [address] [place] [address] Greeting Card Editor: Mike Bill DO Platelets (Bld) [#/Vol] 226 10*3/uL Normal 150-[address] [facility] Comment on above: Performed By: #### C DP, PT, REJEC #### [facility] [address] [place] [address] Greeting Card Editor: Mike Bill DO RBC (Bld) [#/Vol] 6.01 10*6/uL High 4.0-5.[address] [facility] Comment on above: Performed By: #### C DP, PT, REJEC #### [facility] [address] [place] [address] Greeting Card Editor: Mike Bill DO WBC (Bld) [#/Vol] 13.3 10*3/uL High 3.5-11.[address] [facility] Comment on above: Performed By: #### C DP, PT, REJEC #### [facility] [address] [place] [address] Greeting Card Editor: Mike Bill DO CBC with auto differentialon 10-06-2023 Basophils (Bld) [#/Vol] 0.13 10*3/uL [facility] Basophils/100 WBC (Bld) 1 % 0 - 2 % [facility] Eosinophils (Bld) [#/Vol] 0.00 10*3/uL [facility] Eosinophils/100 WBC (Bld) 0 % 0 - 4 % [facility] Erythrocyte distribution width (RBC) [Ratio] 23.8 % High 11.5 - 14.9 % [facility] Hematocrit (Bld) [Volume fraction] 38.6 % 36 - 46 % [facility] Hemoglobin (Bld) [Mass/Vol] 10.9 g/dL Low 12.0 - 16.0 g/dL [facility] Interpretation and review of laboratory results Abnormal [facility] Lymphocytes/100 WBC (Bld) 13 % Low 24 - 44 % [facility] Lymphocytes/100 WBC (Bld) 1.73 % [facility] MCH (RBC) [Entitic mass] 18.1 pg Low 26 - 34 pg [facility] MCHC (RBC) [Mass/Vol] 28.1 g/dL Low 31 - 3 7 g/dL [facility] MCV (RBC) [Entitic vol] 64.3 fL Low 80 - 100 fL [facility] Monocytes/100 WBC (Bld) 7 % 1 - 7 % [facility] Monocytes/100 WBC (Bld) 0.93 % [facility] Morphology Jeffery (Bld) [Interp] ANISOCYTOSIS PRESENT [facility] Morphology Jeffery (Bld) [Interp] HYPOCHROMIA PRESENT [facility] Morphology Jeffery (Bld) [Interp] MICROCYTOSIS PRESENT [facility] Morphology Ejffery (Bld) [Interp] 1+ ELLIPTOCYTES [facility] Morphology Jeffery (Bld) [Interp] 1+ ECHINOCYTES [facility] Morphology Jeffery (Bld) [Interp] FEW SCHISTOCYTES [facility] Neutrophils/100 WBC (Bld) 79 % High 36 - 66 % [facility] Platelet mean volume (Bld) [Entitic vol] 9.2 fL 6.0 - 12.0 fL [facility] Platelets (Bld) [#/Vol] 226 10*3/uL [facility] RBC (Bld) [#/Vol] 6.01 10*6/uL High 4.0 - 5.2 m/uL [facility] Segmented neutrophils/100 WBC (Bld) 10.51 % High [facility] WBC other (Bld) [#/Vol] 13.3 High [facility] CT HEAD WO CONTRASTon 2023 CT [...] Kelechi Cuevas DO 10/05/23 Final result Normal [facility] CTA HEAD NECK W CONTRASTon 0 [...] Brittney Lawson MD 10/05/23 Final result Normal [facility] K (Potassium)on 10-06-2023 Potassium [Moles/Vol] 3.4 mmol/L Low 3.7-5.3 [facility] Comment on above: Result Comment: SPEC IMEN MODERATELY HEMOLYZED, RESULTS MAY BE ADVERSELY AFFECTED Performed By: #### K , TSHX ####[facility] [id number] [place] [address] Lab Director: Mike Bill DO PTon 10-06-2023 INR Coag (PPP) [Relative time] 1.1 {INR} Normal [facility] Comment on above: Result Comment: Therapeutic Range: Moderate Anticoagulant Intensity: INR = 2.0-3.0 High Anticoagulant Intensity: INR = 2.5-3.5 Performed By: #### C DP, PT, REJEC #### [facility] [address] [place] [address] Greeting Card Editor: Mike Bill DO PT Coag (PPP) [Time] 14.7 s High 11.8-14.6 [facility] Comment on above: Performed By: #### C DP, PT, REJEC #### [facility] [address] [place] [address] Greeting Card Editor: Mike Bill DO Path Review, Smearon 024 Pathologist review Pathologist comment (Bld) [Interp] ELECTRONICALLY SIGNED. ELENITA CARR M.D. [facility] Potassiumon 10-06-2023 Interpretation and review of laboratory results Abnormal [facility] Potassium [Moles/Vol] 3.4 mmol/L Low 3.7 - 5.3 mmol/L [facility] Comment on above: SPECIMEN MODERATELY HEMOLYZED, RESULTS MAY BE ADVERSELY AFFECTED [facility] [employer] Protime-INRon 10-06-2023 INR Coag (PPP) [Relative time] 1.1 {INR} [facility] [employer] Comment on above: Therapeutic Range: Moderate Anticoagulant Intensity: INR = 2.0-3.0 High Anticoagulant Intensity: INR = 2.5-3.5 Interpretation and review of laboratory results Abnormal [facility] PT Coag (PPP) [Time] 14.7 s High [facility] SURGICAL PATHOLOGY REPORTon 10-06-2023 Surgical Pathology Report [id number] [facility] [employer] [facility] [facility] ANATOMIC PATHOLOGY [address] [place] [address]. [place] [place], [place] [address] SURGICAL PATHOLOGY CONSULTATION Patient Name: ESSENCE VINCENT MR#: [id number] Specimen #[id number] Procedures/Addenda PERIPHERAL BLOOD REPORT Date Ordered: 10/06/2023 [...] the electronic health record for CBC parameters ([id number], 10/05/2023, TIME UNKNOWN). PLATELETS: Platelets show normal morphology. LEUKOCYTES: White blood cells show normal morphology. No atypical lymphocytes. No dysplasia. There are no blasts. ERYTHROCYTES: Microcytic hypochromic anemia with moderate anisopoikilocytosis and elevated RBC count. Note: The electronic health record is reviewed. Elenita Carr M.D. Source: A: Peripheral Blood [facility]ENTERMisohoniC[facility] Smear to Pathologiston 10-06 Smear to Pathologist ELECTRONICALLY SIGN ED. ELENITA CARR M.D. [facility] Comment on above: Performed By: #### P T, TROPI, ALCB, CDP, MG, CP, RETCT ####[facility] [address] [place] [address] Lab Director: Mike Bill DO#### PATH ####[address] [place] [address] Lab Director: Heladio Lawson MD Specimen Rejectionon 024 Reason for rejection Unable to perform testing: Specimen hemolyzed. [facility] Comment on above: Performed By: #### C DP, PT, REJEC #### [facility] Lab [address] [place] [address] Greeting Card Editor: Mike Bill DO Source of sample .BLOOD Normal [facility] Comment on above: Performed By: #### C DP, PT, REJEC #### [facility] Lab [address] [place] [address] Greeting Card Editor: Mike Bill DO Test ordered BMPX [facility] Comment on above: Performed By: #### C DP, PT, REJEC #### [facility] Lab [address] [place] [address] Greeting Card Editor: Mike Bill DO TSH w/reflex to FT4on 2023 Thyroid Stim. Horm. 3.45 uIU/mL Normal 0.30-5.00 [facility] Comment on above: Performed By: #### K , TSHX ####[facility] [address] [place] [address] Lab Director: Mike Bill DO TSH with Reflexon 10-06-2023 TSH Qn 3.45 m[IU]/L [facility] Troponinon 10-06-2023 Troponin, High Sens 25 ng/L High 0-[address] [facility] Comment on above: Result Comment: High Sensitivity Troponin values cannot be compared with other Troponin methodologies. Performed By: #### T KSENIA ####[facility] [address] [place] [address] Lab Director: Mike Bill, CBC with Auto Differentialon 10-05-2023 Basophils (Bld) [#/Vol] 0.11 10*3/uL [facility] Basophils/100 WBC (Bld) 1 % 0 - 2 % [facility] Eosinophils (Bld) [#/Vol] 0.11 10*3/uL [facility] Eosinophils/100 WBC (Bld) 1 % 0 - 4 % [facility] Erythrocyte distribution width (RBC) [Ratio] 23.6 % High 11.5 - 14.9 % [facility] Hematocrit (Bld) [Volume fraction] 35.7 % Low 36 - 46 % [facility] Hemoglobin (Bld) [Mass/Vol] 10.5 g/dL Low 12.0 - 16.0 g/dL [facility] Interpretation and review of laboratory results Abnormal [facility] Lymphocytes/100 WBC (Bld) 20 % Low 24 - 44 % [facility] Lymphocytes/100 WBC (Bld) 2.16 % [facility] MCH (RBC) [Entitic mass] 18.1 pg Low 26 - 34 pg [facility] MCHC (RBC) [Mass/Vol] 29.4 g/dL Low 31 - 3 7 g/dL [facility] MCV (RBC) [Entitic vol] 61.7 fL Low 80 - 100 fL [facility] Monocytes/100 WBC (Bld) 11 % High 1 - 7 % [facility] Monocytes/100 WBC (Bld) 1.19 % [facility] Morphology Jeffery (Bld) [Interp] ANISOCYTOSIS PRESENT [facility] Morphology Jeffery (Bld) [Interp] MICROCYTOSIS PRESENT [facility] Morphology Jeffery (Bld) [Interp] HYPOCHROMIA PRESENT [facility] Morphology Jeffery (Bld) [Interp] ELLIPTOCYTES [facility] Morphology Jeffery (Bld) [Interp] ECHINOCYTES [facility] Morphology Jeffery (Bld) [Interp] STOMATOCYTES [facility] Neutrophils/100 WBC (Bld) 67 % High 36 - 66 % [facility] Platelet mean volume (Bld) [Entitic vol] 8.6 fL 6.0 - 12.0 fL [facility] Platelets (Bld) [#/Vol] 268 10*3/uL [facility] RBC (Bld) [#/Vol] 5.79 10*6/uL High 4.0 - 5.2 m/uL [facility] Segmented neutrophils/100 WBC (Bld) 7.23 % [facility] WBC other (Bld) [#/Vol] 10.8 [facility] CBC with Diffon 10-05-2023 Abs. Basophil 0.11 k/uL Normal 0.0-0.[address] [facility] Comment on above: Performed By: #### P T, TROPI, ALCB, CDP, MG, CP, RETCT ####[facility] [address] [place] [address] Lab Director: Mike Bill DO#### PATH ####[address] [address] [facility] Director: Heladio Lawson MD Abs.Neutrophil (Seg) 7.23 k/uL Normal 1.3-9.1 [facility] Comment on above: Performed By: #### P T, TROPI, ALCB, CDP, MG, CP, RETCT ####[facility] [address] [place] [address] Lab Director: Mike Bill DO#### PATH ####[address] [address] lab Director: Heladio Lawson MD Basophils/100 WBC (Bld) 1 % Normal 0-[address] [facility] Comment on above: Performed By: #### P T, TROPI, ALCB, CDP, MG, CP, RETCT ####[facility] [address] [place] [address] [facility] Director: Mike Bill DO#### PATH ####[address] [address] Lab Director: Heladio Lawson MD Eosinophils (Bld) [#/Vol] 0.11 10*3/uL Normal 0.0-0.[address] [facility] Comment on above: Performed By: #### P T, TROPI, ALCB, CDP, MG, CP, RETCT ####[address] [address])[phone] Director: Mike Bill DO#### PATH ####[address] [address] Lab Director: Heladio Lawson MD Eosinophils/100 WBC (Bld) 1 % Normal 0-[address] [facility] Comment on above: Performed By: #### P T, TROPI, ALCB, CDP, MG, CP, RETCT ####[address] [place], [place] [address])[phone] Director: Mike Bill DO#### PATH ####[address] [address] Lab Director: Heladio Lawson MD Lymphocytes (Bld) [#/Vol] 2.16 10*3/uL Normal 1.0-4.[address] [facility] Comment on above: Performed By: #### P T, TROPI, ALCB, CDP, MG, CP, RETCT ####[facility] [address] [place] [address] Lab Director: Mike Bill DO#### PATH ####[address] [address] Lab Director: Heladio Lawson MD Lymphocytes/100 WBC (Bld) 20 % Low 24-[address] [facility] Comment on above: Performed By: #### P T, TROPI, ALCB, CDP, MG, CP, RETCT ####[facility] [address] [place], [place] [phone])[phone] Director: Mike Bill DO#### PATH ####[address] [address] Lab Director: Heladio Lawson MD Monocytes (Bld) [#/Vol] 1.19 10*3/uL Normal 0.1-1.[address] [facility] Comment on above: Performed By: #### P T, TROPI, ALCB, CDP, MG, CP, RETCT ####[facility] [address] [place] [address] Lab Director: Mike Bill DO#### PATH ####[address] [address] Lab Director: Heladio Lawson MD Monocytes/100 WBC (Bld) 11 % High 1-[address] [facility] Comment on above: Performed By: #### P T, TROPI, ALCB, CDP, MG, CP, RETCT ####[facility] [address] [place] [address] Lab Director: Mike Bill DO#### PATH ####[address] [address] Lab Director: Heladio Lawson MD Morphology Jeffery (Bld) [Interp] ANISOCYTOSIS PRESENT Normal [facility] Comment on above: Result Comment: MICR OCYTOSIS PRESENT HYPOCHROMIA PRESENT ELLIPTOCYTES ECHINOCYTES STOMATOCYTES Performed By: #### P T, TROPI, ALCB, CDP, MG, CP, RETCT ####[facility] [address] [place], [place] [phone])[phone] Director: Mike Bill DO#### PATH ####[address] [address] [facility] Director: Heladio Lawson MD Neutrophil (Seg) 67 % High 36-66 [facility] Comment on above: Performed By: #### P T, TROPI, ALCB, CDP, MG, CP, RETCT ####[address] [place], [place] [phone] Director: Mike Bill DO#### PATH ####[address] [address] [facility] Director: Heladio Lawson MD Erythrocyte distribution width (RBC) [Ratio] 23.6 % High 11.5-14.[address] [facility] Comment on above: Performed By: #### P T, TROPI, ALCB, CDP, MG, CP, RETCT ####[facility] [address] [place] [address] [facility] Director: Mike Bill DO#### PATH ####[address] [address] [facility] Director: Heladio Lawson MD Hematocrit (Bld) [Volume fraction] 35.7 % Low 36-[address] [facility] Comment on above: Performed By: #### P T, TROPI, ALCB, CDP, MG, CP, RETCT ####[facility] [address] [place], [place] [phone] Director: Mike Bill DO#### PATH ####[address] [address] [facility] Director: Heladio Lawson MD Hemoglobin (Bld) [Mass/Vol] 10.5 g/dL Low 12.0-16.[address] [facility] Comment on above: Performed By: #### P T, TROPI, ALCB, CDP, MG, CP, RETCT ####[facility] [address] [place] [address] [facility] Director: Mike Bill DO#### PATH ####[address] [address] [facility] Director: Heladio Lawson MD MCH (RBC) [Entitic mass] 18.1 pg Low 26-[address] [facility] Comment on above: Performed By: #### P T, TROPI, ALCB, CDP, MG, CP, RETCT ####[address] [address] [facility] Director: Mike Bill DO#### PATH ####[address] [address] Lab Director: Heladio Lawson MD MCHC (RBC) [Mass/Vol] 29.4 g/dL Low 31-37 [facility] Comment on above: Performed By: #### P T, TROPI, ALCB, CDP, MG, CP, RETCT ####[facility] [address] [place] [address] [facility] Director: Mike Bill DO#### PATH ####[address] [address] Lab Director: Heladio Lawson MD MCV (RBC) [Entitic vol] 61.7 fL Low 80-[address] [facility] Comment on above: Performed By: #### P T, TROPI, ALCB, CDP, MG, CP, RETCT ####[facility] U[address] [place] [address] Lab Director: Mike Bill DO#### PATH ####[address] [place], [place] [phone])[phone] Director: Heladio Lawson MD Platelet mean volume (Bld) [Entitic vol] 8.6 fL Normal 6.0-12.[address] [facility] Comment on above: Performed By: #### P T, TROPI, ALCB, CDP, MG, CP, RETCT ####[facility] [address] [place], [place] [address])[phone] Director: Mike Bill DO#### PATH ####[address] [address])[phone] Director: Heladio Lawson MD Platelets (Bld) [#/Vol] 268 10*3/uL Normal 150-[address] [facility] Comment on above: Performed By: #### P T, TROPI, ALCB, CDP, MG, CP, RETCT ####[facility] [address] [place], [place] [address])[phone] Director: Mike Bill DO#### PATH ####[address] [address])[phone] Director: Heladio Lawson MD RBC (Bld) [#/Vol] 5.79 10*6/uL High 4.0-5.[address] [facility] Comment on above: Performed By: #### P T, TROPI, ALCB, CDP, MG, CP, RETCT ####[facility] [address] [place], [place] [address])[phone] Director: Mike Bill DO#### PATH ####[address] [phone] Director: Heladio Lawson MD WBC (Bld) [#/Vol] 10.8 10*3/uL Normal 3.5-11.[address] [facility] Comment on above: Performed By: #### P T, TROPI, ALCB, CDP, MG, CP, RETCT ####[facility] [address] [place] [address] lab Director: Mike Bill DO#### PATH ####[facility] [address] [place] [address] Lab Director: Heladio Lawson MD CT Head WO contraston 2023 1. Mild patchy periventricular and subcortical white matter changes. Findings are favored to represent chronic small vessel ischemic changes. If clinical concerns for acute ischemia, further assessment with MRI is recommended. 2. Otherwise, no acute findings. 3. Bifrontal distribution cortical atrophy is greater than expected for patient's age. [facility] EXAMINATION: CT OF THE HEAD WITHOUT [...] of the visualized skull or soft tissues. [facility] Kelechi Cuevas DO - 10/05/2023 [...] is greater than expected for patient's age. [facility] Radiology Study observation (narrative) [facility] CT Head WO contrastOrdered B y: Kelechi Cuevas on 10-05-2023 [facility] Work Phone: CTA Head vessels and Neck ve ssels W contrast Noah 10-05-2023 1. No evidence of significant arterial stenosis or occlusion in the head or neck. 2. 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 3. Emphysema in the imaged lung apices. [facility] RIS CONSOLIDATED EXAMINATION: CTA OF THE [...] fluid collection. The mckeon-white differentiation is maintained. [facility] Brittney Roque MD - 10/05/2023 EXAMINATION: [...] 3. Emphysema in the imaged lung apices. [facility] Radiology Study observation (narrative) [facility] CTA Head vessels and Neck ve ssels W contrast IVOrdered By: Brittney Lawson on 10-05-2023 [facility] Work Phone: Comp Metabolic Profon 2023 Potassium [Moles/Vol] 2.2 mmol/L Critically low 3.7-5.[address] [facility] Comment on above: Performed By: #### P T, TROPI, ALCB, CDP, MG, CP, RETCT ####[facility] [address] [place] [address] Lab Director: Mike Bill DO#### PATH ####[facility] [address] [place] [address] Lab Director: Heladio Lawson MD Albumin [Mass/Vol] 4.1 g/dL Normal 3.5-5.[address] [facility] Comment on above: Performed By: #### P T, TROPI, ALCB, CDP, MG, CP, RETCT ####[facility] [address] [place], [place] [phone] Director: Mike Bill DO#### PATH ####[address] [phone] Director: Heladio Lawson MD Alkaline Phos 316 U/L High 35-[address] [facility] Comment on above: Performed By: #### P T, TROPI, ALCB, CDP, MG, CP, RETCT ####[address] [address])[phone] Director: Mike Bill DO#### PATH ####[address] [address] Lab Director: Heladio Lawson MD ALT [Catalytic activity/Vol] 19 U/L Normal 5-[address] [facility] Comment on above: Performed By: #### P T, TROPI, ALCB, CDP, MG, CP, RETCT ####[facility] [address] [place] [address] [facility] Director: Mike Bill DO#### PATH ####[address] [phone] Director: Heladio Lawson MD Anion gap [Moles/Vol] 19 mmol/L High 9-17 [facility] Comment on above: Performed By: #### P T, TROPI, ALCB, CDP, MG, CP, RETCT ####[facility] [address] [place], [place] [phone] Director: Mike Bill DO#### PATH ####[address] [address] Lab Director: Heladio Lawson MD AST [Catalytic activity/Vol] 55 U/L High <[address] [facility] Comment on above: Performed By: #### P T, TROPI, ALCB, CDP, MG, CP, RETCT ####[facility] [address] [place], [place] [address])[phone] Director: Mike Bill DO#### PATH ####[address] [address] Lab Director: Heladio Lawson MD Bilirubin [Mass/Vol] 0.7 mg/dL Normal 0.3-1.2 [facility] Comment on above: Performed By: #### P T, TROPI, ALCB, CDP, MG, CP, RETCT ####[facility] [address] [place], [place] [phone])[phone] Director: Mike Bill DO#### PATH ####[address] [address] Lab Director: Heladio Lawson MD Calcium [Mass/Vol] 9.7 mg/dL Normal 8.6-10.[address] [facility] Comment on above: Performed By: #### P T, TROPI, ALCB, CDP, MG, CP, RETCT ####[facility] [address] [place], [place] [phone] Director: Mike Bill DO#### PATH ####[address] [address] Lab Director: Heladio Lawson MD Chloride [Moles/Vol] 96 mmol/L Low 98-107 [facility] Comment on above: Performed By: #### P T, TROPI, ALCB, CDP, MG, CP, RETCT ####[facility] [address] [facility], [place] [address])[phone] Director: Mike Bill DO#### PATH ####[address] [address] Lab Director: Heladio Lawson MD CO2 [Moles/Vol] 23 mmol/L Normal 20-[address] [facility] Comment on above: Performed By: #### P T, TROPI, ALCB, CDP, MG, CP, RETCT ####[facility] [address] [place] [address] Lab Director: Mike Bill DO#### PATH ####[address] [address] Lab Director: Heladio Lawson MD Creatinine [Mass/Vol] 1.2 mg/dL High 0.5-0.9 [facility] Comment on above: Performed By: #### P T, TROPI, ALCB, CDP, MG, CP, RETCT ####[facility] [address] [place] [address] Lab Director: Mike Bill DO#### PATH ####[address] [address] Lab Director: Heladio Lawson MD GFR/1.73 sq M.predicted among non-blacks MDRD (S/P/Bld) [Vol rate/Area] 54 mL/min/{1.73_m2} Low >[address] [facility] Comment on above: Result Comment: These [...] ALCB, CDP, MG, CP, RETCT ####[facility] [address] [place] [address] Lab Director: Mike Bill DO#### PATH ####[address] [address] Lab Director: Heladio Lawson MD Glucose [Mass/Vol] 181 mg/dL High 70-[address] [facility] Comment on above: Performed By: #### P T, TROPI, ALCB, CDP, MG, CP, RETCT ####[facility] [address] [place], [place] [address])[phone] Director: Mike Bill DO#### PATH ####[address] [address] Lab Director: Heladio Lawson MD Protein [Mass/Vol] 8.1 g/dL Normal 6.4-8.[address] [facility] Comment on above: Performed By: #### P T, TROPI, ALCB, CDP, MG, CP, RETCT ####[facility] [address]bu[address] [place] [address] Lab Director: Mike Bill DO#### PATH ####[address] [address] Lab Director: Heladio Lawson MD Sodium [Moles/Vol] 138 mmol/L Normal 135-[address] [facility] Comment on above: Performed By: #### P T, TROPI, ALCB, CDP, MG, CP, RETCT ####[facility] [address] [place] [address] Lab Director: Mike Bill DO#### PATH ####[address] [place] [address] Lab Director: Heladio Lawson MD Urea nitrogen [Mass/Vol] 17 mg/dL Normal 6-[address] [facility] Comment on above: Performed By: #### P T, TROPI, ALCB, CDP, MG, CP, RETCT ####[facility] [address] [place] [address] Lab Director: Mike Bill DO#### PATH ####[facility] [address] [place] [address] Lab Director: Heladio Lawson MD Comprehensive Metabolic Pane [facility] 10-05-2023 Albumin [Mass/Vol] 4.1 g/dL 3.5 - 5.2 g/dL [facility] ALP [Catalytic activity/Vol] 316 U/L High 35 - 104 U/L [facility] ALT [Catalytic activity/Vol] 19 U/L 5 - 33 U/L [facility] Anion gap [Moles/Vol] 19 mmol/L High 9 - 17 mmol/L [facility] AST [Catalytic activity/Vol] 55 U/L High NINF - 32 U/L [facility] Bilirubin [Mass/Vol] 0.7 mg/dL 0.3 - 1 .2 mg/dL [facility] Calcium [Mass/Vol] 9.7 mg/dL 8.6 - 10. 4 mg/dL [facility] Chloride [Moles/Vol] 96 mmol/L Low 98 - 10 7 mmol/L [facility] CO2 [Moles/Vol] 23 mmol/L 20 - 31 mmol/L [facility] Creatinine [Mass/Vol] 1.2 mg/dL High 0.5 - 0.9 mg/dL [facility] GFR/1.73 sq M.predicted MDRD (S/P/Bld) [Vol rate/Area] 54 mL/min/{1.73_m2} Low - PINF [facility] Comment on above: These results [...] 181 mg/dL High 70 - 99 mg/dL [facility] Interpretation and review of laboratory results Abnormal [facility] Potassium [Moles/Vol] 2.2 mmol/L Critically low 3.7 - 5.3 mmol/L [facility] Protein [Mass/Vol] 8.1 g/dL 6.4 - 8.3 g/dL [facility] Sodium [Moles/Vol] 138 mmol/L 135 - 144 mmol/L [facility] Urea nitrogen [Mass/Vol] 17 mg/dL 6 - 20 mg/dL [facility] Drug Scr, Abuse, Uron 2023 Amphetamine(s),Ur Negative Normal [facility] Comment on above: Result Comment: (Positive cutoff 1000 ng/mL) Performed By: #### U MICAO, UAX, INDIRA ####[facility] [address] [place] [address] Lab Director: Mike Bill DO Barbiturate(s),Ur Positive Abnormal [facility] Comment on above: Result Comment: (Positive cutoff 200 ng/mL) Performed By: #### U MICAO, UAX, INDIRA ####[facility] [address] [place] [address] Lab Director: Mike Bill DO Benzodiazepine(s) Negative Normal [facility] Comment on above: Result Comment: (Positive cutoff 200 ng/mL) Performed By: #### U MICAO, UAX, INDIRA ####[facility] [address]lt[address] [place] [address] lab Director: Mike Bill DO Cannabinoid(s),Ur Positive Abnormal [facility] Comment on above: Result Comment: (Positive cutoff 50 ng/mL) Performed By: #### U MICAO, UAX, INDIRA ####[facility] [address] [facility] [place] [address] Lab Director: Mike Bill DO Cocaine Metabolite Negative Normal NEG [facility] Comment on above: Result Comment: (Positive cutoff 300 ng/mL) Performed By: #### U MICAO, UAX, INDIRA ####[facility] [address] [facility] [place] [address] Lab Director: Mike Bill DO Fentanyl, Urine Negative Normal NEG [facility] Comment on above: Result Comment: (Positive cutoff 5 ng/ml) Performed By: #### U MICAO, UAX, INDIRA ####[facility] [address] [place] [address].[place] [address] Lab Director: Mike Bill DO Interpretive Info Assay provides medic al screening only. The absence of expected drug(s) and/or Normal [facility] Comment on above: Result Comment: meta bolite(s) may indicate diluted or adulterated urine, limitations of testing or timing of collection. Testing for legal purposes should be confirmed by another method. To request confirmation of test result, please call the lab within 7 days of sample submission. Performed By: #### U MICAO, UAX, INDIRA ####[facility] [address] [place] [address].[place] [address] Lab Director: Mike Bill DO Methadone Ql (U) Negative Normal NEG [facility] Comment on above: Result Comment: (Positive cutoff 300 ng/mL) Performed By: #### U MICAO, UAX, INDIRA ####[facility] [address] [facility] [place] [address] Lab Director: Mike Bill DO Opiate(s), Ur Negative Normal NEG [facility] Comment on above: Result Comment: (Positive cutoff 300 ng/mL) Performed By: #### U MICAO, UAX, INDIRA ####[facility] L[address] [place] [address] Lab Director: Mike Bill DO Oxycodone, Urine Negative Normal NEG [facility] Comment on above: Result Comment: (Positive cutoff 100 ng/mL) Performed By: #### U MICAO, UAX, INDIRA ####[facility] V[address] [place] [address] Lab Director: Mike Bill DO Phencyclidine, Ur Negative Normal NEG [facility] Comment on above: Result Comment: (Positive cutoff 25 ng/mL) Performed By: #### U MICAO, UAX, INDIRA ####[facility] [address] [place] [address] lab Director: Mike Bill DO ED Note-Physicianon 10-05-19 ED Note-Physician [id number] Normal [facility] Ethanolon 10-05-2023 Ethanol percent <0.010 % [facility] Ethanolamine [Mass/Vol] mg/dL NINF - 10 mg/dL [facility] Ethanol Alcoholon 10-05-2023 Ethanol [Mass/Vol] mg/dL Normal <[address] [facility] Comment on above: Performed By: #### P T, TROPI, ALCB, CDP, MG, CP, RETCT ####[facility] [facility] [id number] [place] [address] Lab Director: Mike Bill DO#### PATH ####[address] [address] lab Director: Heladio Lawson MD Ethanol percent <0.[address] [facility] Comment on above: Performed By: #### P T, TROPI, ALCB, CDP, MG, CP, RETCT ####[facility] Uvm[address] [place] [address] lab Director: Mike Bill DO#### PATH ####[facility] [address] [place] [address] lab Director: Heladio Lawson MD Magnesiumon 10-05-2023 Magnesium [Mass/Vol] 2.1 mg/dL Normal 1.6-2.6 [facility] Comment on above: Performed By: #### P T, TROPI, ALCB, CDP, MG, CP, RETCT ####[facility] [address] [place] [address] lab Director: Mike Bill DO#### PATH ####[facility] [address] [place], [place] [id number] lab Director: Heladio Lawson MD Magnesium [Mass/Vol] 2.1 mg/dL 1.6 - 2 .6 mg/dL [facility] Microscopic Urinalysison Bacteria LM Ql (Urine sed) FEW Abnormal None [facility] Casts LM.LPF (Urine sed) [#/Area] HYALINE Abnormal None /LPF [facility] Casts LM.LPF (Urine sed) [#/Area] 6 TO 9 Abnormal None /LPF [facility] Casts LM.LPF (Urine sed) [#/Area] FINE GRANULAR Abnormal None /LPF [facility] Casts LM.LPF (Urine sed) [#/Area] 10 TO 20 Abnormal None /LPF [facility] Epithelial cells LM.HPF (Urine sed) [#/Area] 10 TO 20 /HPF [facility] Interpretation and review of laboratory results Abnormal [facility] Mucus Ql (Urine sed) 1+ [facility] RBC LM.HPF (Urine sed) [#/Area] 3 to 5 Abnormal 0 TO 2 /HPF [facility] WBC LM.HPF (Urine sed) [#/Area] 6 TO 9 Abnormal 0 TO 5 /HPF [facility] No Panel Informationon 10-05 [facility] PTon 10-05-2023 INR Coag (PPP) [Relative time] 1.1 {INR} Normal [facility] Comment on above: Result Comment: Therapeutic Range: Moderate Anticoagulant Intensity: INR = 2.0-3.0 High Anticoagulant Intensity: INR = 2.5-3.5 Performed By: #### P T, TROPI, ALCB, CDP, MG, CP, RETCT ####[facility] [id number] [facility] [place] [address] [facility] Director: Mike Bill DO#### PATH ####[address] [address] lab Director: Heladio Lawson MD PT Coag (PPP) [Time] 14.5 s Normal 11.8-14.6 [facility] Comment on above: Performed By: #### P T, TROPI, ALCB, CDP, MG, CP, RETCT ####[facility] Qqq8527 [place] [address] lab Director: Mike Bill DO#### PATH ####[address] [address] lab Director: Heladio Lawson MD Portable XR Chest AP single viewon 10-05-2023 Cardiomegaly, with m ild pulmonary vascular congestion. [facility] CONSOLIDATED EXAMINATION: ONE XRAY VIEW OF [...] pneumothorax is identified. No acute osseous abnormality. [facility] RIS CONSOLIDATED Derrick Zapien MD - [...] IMPRESSION: Cardiomegaly, with mild pulmonary vascular congestion. [facility] Radiology Study observation (narrative) [facility] Portable XR Chest AP single viewOrdered By: Derrick Zapien on 10-05-2023 [facility] Work Phone: Protime-INRon 10-05-2023 INR Coag (PPP) [Relative time] 1.1 {INR} [facility] Comment on above: Therapeutic Range: Moderate Anticoagulant Intensity: INR = 2.0-3.0 High Anticoagulant Intensity: INR = 2.5-3.5 PT Coag (PPP) [Time] 14.5 s [facility] Retic Counton 10-05-2023 Absolute Retic 0.069 M/uL Normal 0.0245-0.[address] [facility] Comment on above: Performed By: #### P T, TROPI, ALCB, CDP, MG, CP, RETCT ####[facility] [address] [facility] [place] [address] [facility] Director: Mike Bill DO#### PATH ####[facility] [address] [place] [address] lab Director: Heladio Lawson MD Retic Count 1.2 % Normal 0.5-2.[address] [facility] Comment on above: Performed By: #### P T, TROPI, ALCB, CDP, MG, CP, RETCT ####[facility] S[address] [place] [address] Lab Director: Mike Bill DO#### PATH ####[facility] [address] [place] [address] lab Director: Heladio Lawson MD Reticulocyteson 10-05-2023 Reticulocytes (Bld) [#/Vol] 0.069 10*3/uL [facility] Reticulocytes/100 RBC (Bld) 1.2 % 0.5 - 2.0 % [facility] Surgical Pathology Reporton 10-05-2023 Surgical Pathology Report (NOTE) [id number] [facility] [employer] [facility] ANATOMIC PATHOLOGY [address] [place] [address]. [place], [place] [address] SURGICAL PATHOLOGY CONSULTATION Patient Name: ESSENCE VINCENT MR#: [id number] Specimen #[id number] Procedures/Addenda PERIPHERAL BLOOD REPORT Date Ordered: 10/06/2023 [...] the electronic health record for CBC parameters ([id number], 10/05/2023, TIME UNKNOWN). PLATELETS: Platelets show normal morphology. LEUKOCYTES: White blood cells show normal morphology. No atypical lymphocytes. No dysplasia. There are no blasts. ERYTHROCYTES: Microcytic hypochromic anemia with moderate anisopoikilocytosis and elevated RBC count. Note: The electronic health record is reviewed. Elenita Carr M.D. Source: A: Peripheral Blood Normal [facility] Troponinon 10-05-2023 Interpretation and review of laboratory results Abnormal [facility] Troponin I.cardiac High sensitivity method [Mass/Vol] 25 ng/L High 0 - 14 ng/L [facility] Comment on above: High Sensitivity Tro ponin values cannot be compared with other Troponin methodologies. [facility] Troponin, High Sens 24 ng/L High 0-[address] [facility] Comment on above: Result Comment: High Sensitivity Troponin values cannot be compared with other Troponin methodologies. Performed By: #### P T, TROPI, ALCB, CDP, MG, CP, RETCT ####[facility] J[address] [place] [address] Lab Director: Mike Bill DO#### PATH ####[address] [address] Lab Director: Heladio Lawson MD Interpretation and review of laboratory results Abnormal [facility] Troponin I.cardiac High sensitivity method [Mass/Vol] 24 ng/L High 0 - 14 ng/L [facility] Comment on above: High Sensitivity Tro ponin values cannot be compared with other Troponin methodologies. [facility] UA w/Reflex Cultureon 2023 Bilirubin, SemiQt,Ur Negative Normal NEG [facility] Comment on above: Performed By: #### U MICAO, UAX, INDIRA ####[facility] T[address] [place], [place] [phone] Director: Mike Bill DO Blood, Urine TRACE Abnormal NEG [facility] Comment on above: Performed By: #### U MICAO, UAX, INDIRA ####[facility] [address] [place] [address] Lab Director: Mike Bill DO Clarity (U) Clear Normal CLEAR [facility] Comment on above: Performed By: #### U MICAO, UAX, INDIRA ####[facility] Xvk8373 [place] [address] Lab Director: Mike Bill DO Color (U) Dark Yellow Abnormal YEL [facility] Comment on above: Performed By: #### U MICAO, UAX, INDIRA ####[facility] [address] [facility] [place] [address] Lab Director: Mike Bill DO Glucose Ql (U) Negative Normal NEG [facility] Comment on above: Performed By: #### U MICAO, UAX, INDIRA ####[facility] [address] [place] [address] Lab Director: Mike Bill DO Ketones Ql (U) TRACE Abnormal NEG [facility] Comment on above: Performed By: #### U MICAO, UAX, INDIRA ####[address] [address] Lab Director: Mike Bill DO Leukocyte esterase Test strip Ql (U) TRACE Abnormal NEG [facility] Comment on above: Performed By: #### U MICAO, UAX, INDIRA ####[facility] [address] [place] [address] Lab Director: Mike Bill DO Nitrite,Ur Negative Normal NEG [facility] Comment on above: Performed By: #### U MICAO, UAX, INDIRA ####[facility] [address] [place] [address] Lab Director: Mike Bill DO PH,Ur 6.0 Normal 5.0-8.[address] [facility] Comment on above: Performed By: #### U MICAO, UAX, INDIRA ####[facility] [address] [place] [address] Lab Director: Mike Bill DO Protein Ql (U) 1+ mg/dL Abnormal NEG [facility] Comment on above: Performed By: #### U MICAO, UAX, INDIRA ####[facility] [address] [facility] [place] [address] Lab Director: Mike Bill DO Spec. [place],Ur 1.018 Normal 1.000-1.[address] [facility] Comment on above: Performed By: #### U MICAO, UAX, INDIRA ####[facility] [id number] [facility] [place] [address] [facility] Director: Mike Bill DO Urobilinogen,Ur Normal Normal 0.0-1.[address] [facility] Comment on above: Performed By: #### U MICAO, UAX, INDIRA ####[facility] Qyb8[address] [place] [address] lab Director: Mike Bill DO Urinalysis with Reflex to Cu ltureon 10-05-2023 Bilirubin Ql (U) Negative NEGATIVE [facility] Clarity (U) Clear Clear [facility] Color (U) Dark Yellow Abnormal Yellow [facility] Glucose Test strip (U) [Mass/Vol] Negative NEGATIVE mg/dL [facility] Hemoglobin Auto test strip Ql (U) TRACE Abnormal NEGATIVE [facility] Interpretation and review of laboratory results Abnormal [facility] Ketones (U) [Mass/Vol] TRACE Abnormal NEGAT ZULMA mg/dL [facility] Leukocyte esterase Test strip Ql (U) TRACE Abnormal NEGATIVE [facility] Nitrite Ql (U) Negative NEGATIVE [facility] pH (U) 6.0 [pH] 5.0 - 8.0 [facility] Protein (U) [Mass/Vol] 1+ Abnormal NEGAT ZULMA mg/dL [facility] Specific gravity (U) [Rel density] 1.018 1.000 - 1.030 [facility] Urobilinogen Qn (U) Normal 0.0 - 1. 0 EU/dL [facility] Urinalysis,Microon 4 Bacteria FEW Abnormal NONE [facility] Comment on above: Performed By: #### U MICAO, UAX, INDIRA ####[facility] [address] [facility] [place] [address] Lab Director: Mike Bill DO Casts HYALINE Abnormal NONE [facility] Comment on above: Result Comment: 6 TO 9 FINE GRANULAR 10 TO 20 Performed By: #### U MICAO, UAX, INDIRA ####[facility] [address] [facility] [place] [address] Lab Director: Mike Bill DO Epithelial cells LM Ql (Urine sed) 10 TO [address] [facility] Comment on above: Performed By: #### U MICAO, UAX, INDIRA ####[facility] [address] [place] [address].[place], [place] [phone] Director: Mike Bill DO Mucus Strands 1+ Normal [facility] Comment on above: Performed By: #### U MICAO, UAX, INDIRA ####[facility] [address] [facility] [place] [address] Lab Director: Mike Bill DO Urine RBC's 3 to 5 Abnormal [address] [facility] Comment on above: Performed By: #### U MICAO, UAX, INDIRA ####[facility] Htw[address] [facility] [place] [address] Lab Director: Mike Bill DO Urine WBC's 6 TO [address] Comment on above: Performed By: #### U MICAO, UAX, INDIRA ####[facility] [address] [place] [address].[place], [place] [phone] Director: Mike Bill DO Urine Drug Screenon 10-05-19 24 Amphetamines Ql (U) Negative NEGATIVE [facility] Comment on above: (Positive cutoff 1000 ng/mL) Barbiturates Screen Ql (U) Positive Abnormal NEGATIVE [facility] Comment on above: (Positive cutoff 200 ng/mL) Benzodiazepines Ql (U) Negative NEGATIVE [facility] Comment on above: (Positive cutoff 200 ng/mL) Cannabinoids Screen Ql (U) Positive Abnormal NEGATIVE [facility] [email or web address] Comment on above: (Positive cutoff 50 ng/mL) Cocaine Ql (U) Negative [facility] [address] Comment on above: (Positive cutoff 300 ng/mL) fentaNYL Ql (U) Negative NEGATIVE [facility] Comment on above: (Positive cutoff 5 ng/ml) Interpretation and review of laboratory results Abnormal [facility] Methadone Ql (U) Negative NEGATIVE [facility] [employer] Comment on above: (Positive cutoff 300 ng/mL) Opiates Screen Ql (U) Negative NEGATIVE [facility] [email or web address] Comment on above: (Positive cutoff 300 ng/mL) oxyCODONE Ql (U) Negative NEGATIVE [facility] [employer] [facility] [employer] Comment on above: (Positive cutoff 100 ng/mL) Phencyclidine Ql (U) Negative NEGATIVE [facility] [email or web address] Comment on above: (Positive cutoff 25 ng/mL) Test Information Assay provides medic al screening only. The absence of expected drug(s) and/or metabolite(s) may indicate diluted or adulterated urine, limitations of testing or timing of collection. [employer] Comment on above: Testing for legal pu rposes should be confirmed by another method. To request confirmation of test result, please call the lab within 7 days of sample submission. [employer] XR CHEST PORTABLEon 10-05-19 24 XR CHEST [...] Derrick Zapien MD 10/05/23 Final result Normal [facility] Basic metabolic 2000 panelon 09-29-2023 Anion gap [Moles/Vol] 16 mmol/L 10 - 2 0 mmol/L [facility] Calcium [Mass/Vol] 9.3 mg/dL 8.6 - 10. 3 mg/dL [facility] Chloride [Moles/Vol] 100 mmol/L 98 - 10 7 mmol/L [facility] CO2 [Moles/Vol] 29 mmol/L 21 - 32 mmol/L [facility] Creatinine [Mass/Vol] 1.16 mg/dL High 0.50 - 1.05 mg/dL [facility] GFR/1.73 sq M.predicted among non-blacks MDRD (S/P/Bld) [Vol rate/Area] 56 mL/min/{1.73_m2} Low - PINF [facility] Comment on above: Calculations of yovanny mated GFR are performed using the 2020 CKD-EPI Study Refit equation without the race variable for the IDMS-Traceable creatinine methods. https://jasn.asnjournals.org/content/early/ASN.10022 88949 Glucose [Mass/Vol] 83 mg/dL 74 - 99 mg/dL [facility] Interpretation and review of laboratory results Abnormal [facility] Potassium [Moles/Vol] 3.7 mmol/L 3.5 - 5.3 mmol/L [facility] Sodium [Moles/Vol] 141 mmol/L 136 - 145 mmol/L [facility] Urea nitrogen [Mass/Vol] 33 mg/dL High 6 - 23 mg/dL [facility] Anion gap [Moles/Vol] 16 mmol/L Normal 10-20 [facility] Comment on above: Performed By: #### 2 4321-2 #### SHAQUILLE GOLDMAN ([id number]) [facility]) [address] [place] [address] Calcium [Mass/Vol] 9.3 mg/dL Normal 8.6-10.3 [facility] Comment on above: Performed By: #### 2 4321-2 #### SHAQUILLE GOLDMAN ([id number]) [facility]) [address] [place] [address] Chloride [Moles/Vol] 100 mmol/L Normal 98-107 [facility] Comment on above: Performed By: #### 2 4321-2 #### ANAIBELIISABELLA RODRIGUEZ SKYE ([id number]) [facility]) [address] [place] [address] CO2 [Moles/Vol] 29 mmol/L Normal 21-[address] [facility] Comment on above: Performed By: #### 2 4321-2 #### REGULOIBELIISABELLA GOLDMAN ([id number]) [facility]) [address] [place] [address] Creatinine [Mass/Vol] 1.16 mg/dL High 0.50-1.05 [facility] Comment on above: Performed By: #### 2 4321-2 #### REGULOIBJULIO GOLDMAN ([id number]) [facility]) [address] [place] [address] Glomerular filtration rate/1.73 sq M.predicted 56 mL/min/1.73m*2 Low >60 [facility] Comment on above: Result Comment: Calc ulations of estimated GFR are performed using the 2020 CKD-EPI Study Refit equation without the race variable for the IDMS-Traceable creatinine methods. https://jasn.asnjournals.org/content//ASN.50667 69072 Performed By: #### 2 4321-2 #### REGULOIBELIISABELLA DE LEONMICHAEL SKYE ([id number]) [facility]) [address] [place] [address] Glucose [Mass/Vol] 83 mg/dL Normal 74-99 [facility] Comment on above: Performed By: #### 2 4321-2 #### REGULOIBELIISABELLA DE LEONMICHAEL SKYE ([id number]) [facility]) [address] [place] [address] Potassium [Moles/Vol] 3.7 mmol/L Normal 3.5-5.3 [facility] Comment on above: Performed By: #### 2 4321-2 #### SHAQUILLE GOLDMAN ([id number]) [facility]) [address] [place] [address] Sodium [Moles/Vol] 141 mmol/L Normal 136-145 [facility] Comment on above: Performed By: #### 2 4321-2 #### SHAQUILLE GOLDMAN ([id number]) [facility]) [address] [place] [address] Urea nitrogen [Mass/Vol] 33 mg/dL High 6-23 [facility] Comment on above: Performed By: #### 2 4321-2 #### SHAQUILLE GOLDMAN ([id number]) [facility]) [address] [place] [address] CBC panel Auto (Bld)on 09-29 Erythrocyte distribution width (RBC) [Ratio] 23.8 % High 11.5 - 14.5 % [facility] Hematocrit (Bld) [Volume fraction] 35.4 % Low 36.0 - 46.0 % [facility] Hemoglobin (Bld) [Mass/Vol] 9.8 g/dL Low 12.0 - 16.0 g/dL [facility] Interpretation and review of laboratory results Abnormal [facility] MCH (RBC) [Entitic mass] 17.9 pg Low 26.0 - 34.0 pg [facility] MCHC (RBC) [Mass/Vol] 27.7 g/dL Low 32.0 - 36.0 g/dL [facility] MCV (RBC) [Entitic vol] 65 fL Low 80 - 100 fL [facility] Nucleated RBC/100 WBC (Bld) [Ratio] 0.0 % [facility] Platelets (Bld) [#/Vol] 303 10*3/uL [facility] RBC (Bld) [#/Vol] 5.47 10*6/uL High [facility] WBC (Bld) [#/Vol] 8.7 10*3/uL [facility] Erythrocyte distribution width (RBC) [Ratio] 23.8 % High 11.5-14.5 [facility] Comment on above: Performed By: #### 5 8410-2 #### SHAQUILLE GOLDMAN ([id number]) [facility] ([facility]) [address] [place] [address] Hematocrit (Bld) [Volume fraction] 35.4 % Low 36.0-46.0 [facility] Comment on above: Performed By: #### 5 8410-2 #### SHAQUILLE GOLDMAN ([id number]) [facility] ([facility]) [address] [place] [address] Hemoglobin (Bld) [Mass/Vol] 9.8 g/dL Low 12.0-16.0 [facility] Comment on above: Performed By: #### 5 8410-2 #### SHAQUILLE GOLDMAN ([id number]) [facility] ([facility]) [address] [place] [address] MCH (RBC) [Entitic mass] 17.9 pg Low 26.0-34.0 [facility] Comment on above: Performed By: #### 5 8410-2 #### SHAQUILLE GOLDMAN ([id number]) [facility] ([facility]) [address] [place] [address] MCHC (RBC) [Mass/Vol] 27.7 g/dL Low 32.0-36.0 [facility] Comment on above: Performed By: #### 5 8410-2 #### SHAQUILLE GOLDMAN ([id number]) [facility] ([facility]) [address] [place] [address] MCV (RBC) [Entitic vol] 65 fL Low 80-100 [facility] Comment on above: Performed By: #### 5 8410-2 #### SHAQUILLE GOLDMAN ([id number]) [facility] ([facility]) [address] [place] [address] Nucleated RBC/100 WBC (Bld) [Ratio] 0.0 /100 WBCs Normal 0.0-0.0 [facility] Comment on above: Performed By: #### 5 8410-2 #### SHAQUILLE GOLDMAN ([id number]) [facility] ([facility]) [address] [place] [address] Platelets (Bld) [#/Vol] 303 x10*3/uL Normal 150-450 [facility] Comment on above: Performed By: #### 5 8410-2 #### SHAQUILLE GOLDMAN ([id number]) [facility] ([facility]) [address] [place] [address] RBC (Bld) [#/Vol] 5.47 x10*6/uL High 4.00-5.20 [facility] Comment on above: Performed By: #### 5 8410-2 #### SHAQUILLE GOLDMAN ([id number]) [facility] ([facility]) [address] [place] [address] WBC (Bld) [#/Vol] 8.7 x10*3/uL Normal 4.4-11.3 [facility] Comment on above: Performed By: #### 5 8410-2 #### SHAQUILLE GOLDMAN ([id number]) [facility]) [address] [place] [address] ECG 12-LEADon 09-29-2023 ECG 12-LEAD Ventricular Rate 80 Atrial Rate 79 QRS Duration 240 Q-T Interval 640 QTC Calculation(Bazett) 738 R [place] -75 T [place] 92 QRS Count 13 Q Onset 160 T Offset 480 QTC Fredericia 705 Diagnosis AV dual-paced rhythm Abnormal ECG When compared with ECG of 21-JAN-2022 17:39, No significant change was found Confirmed by Fly Sheldon ([id number]) on 09/29/2023 3:03:21 PM Normal [facility] Electrophysiology studyon [facility] Work Phone: No Panel Informationon 09-29 Extra Tube Hold for add-ons. [facility] Comment on above: Auto resulted. [facility] PT and aPTT panel Coag (PPP) on 09-29-2023 aPTT Coag (PPP) [Time] 25 s Low [facility] INR Coag (PPP) [Relative time] 1.0 {INR} 0.9 - 1.1 [facility] Interpretation and review of laboratory results Abnormal [facility] PT Coag (PPP) [Time] 11.1 s [facility] The APTT is no longe r used for monitoring Unfractionated Heparin Therapy. For monitoring Heparin Therapy, use the Heparin Assay. [facility] aPTT Coag (PPP) [Time] 25 s Low 27-38 [facility] Comment on above: Order Comment: The A PTT is no longer used for monitoring Unfractionated Heparin Therapy. For monitoring Heparin Therapy, use the Heparin Assay. Performed By: #### 3 4529-8 #### SHAQUILLE GOLDMAN ([id number]) [facility] ([facility]) [address] [place] [address] INR Coag (PPP) [Relative time] 1.0 Normal 0.9-1.1 [facility] Comment on above: Order Comment: The A PTT is no longer used for monitoring Unfractionated Heparin Therapy. For monitoring Heparin Therapy, use the Heparin Assay. Performed By: #### 3 4529-8 #### SHAQUILLE GOLDMAN ([id number]) [facility] ([facility]) [address] [place] [address] PT Coag (PPP) [Time] 11.1 s Normal 9.8-12.8 [facility] Comment on above: Order Comment: The A PTT is no longer used for monitoring Unfractionated Heparin Therapy. For monitoring Heparin Therapy, use the Heparin Assay. Performed By: #### 3 4529-8 #### SHAQUILLE GOLDMAN ([id number]) [facility] ([facility]) [address] [place] [address] Cardiac Device Check - In Cl inicOrdered By: Margareth Nunez on 09-02-2023 [facility] Work Phone: Cardiac Device Check - In Cl inicon 09-02-2023 Radiology Study observation (narrative) [facility] Work Phone: CNPNon 08-03-2023 CNPN Telephone (EPSMN) ----- ESSENCE VINCENT ([id number]) 1970 F Date Time Provider Department 08/03/23 DAVID OSEI [facility] During your visit today, we recorded [...] Osei MD Procedure Requested: ICD change CPT: 09387 Multi Lead Date of Last HANDP? N/A Indications / Dx for Procedure: VT Procedure Time Frame: 1 month Estimated length of case: 1 HOUR Device Company: [employer] Patient: No Type of Bed: [...] for Visit: Schedule Surgery [1330] Cmt: EPS- DONOR SUPPORT TECHNICIAN-D Change Out Prescriptions as of 08/27/2023 - [...] [I34.0] 07/16/2012 Pulmonary hypertension [I27.20] Dual chamber DONOR SUPPORT TECHNICIAN-D [Z95.810] 07/23/2020 Primary hypertension [I10] Nicotine use disorder [F17.200] Exercise-induced asthma [J45.990] Anemia [D64.9] 10/29/2011 07/23/2020 H/o GERD [K21.9] 07/23/2020 Migraines [G43.909] H/o Depression/Anxiety/Sleep disturbance [F32.* Preop testing [Z01.818] 07/08/2012 07/23/2020 SUMMARY (more content not included)... Normal [facility] Franck 07-28-2023 CNPN Telephone (CARDMN) ----- ESSENCE VINCENT ([id number]) 1970 F Date Time Provider Department 07/28/23 [...] [I34.0] 07/16/2012 Pulmonary hypertension [I27.20] Dual chamber DONOR SUPPORT TECHNICIAN-D [Z95.810] 07/23/2020 Primary hypertension [I10] Nicotine use disorder [F17.200] Exercise-induced asthma [J45.990] Anemia [D64.9] 10/29/2011 07/23/2020 H/o GERD [K21.9] 07/23/2020 Migraines [G43.909] H/o Depression/Anxiety/Sleep disturbance [F32.* Preop testing [Z01.818] 07/08/2012 07/23/2020 SUMMARY [V999.95] 07/11/2012 07/23/2020 Pulmonary hypertension, moderate to severe (HCC*2012 Other acute postoperative pain [G89.18] 07/13/2012 07/16/2012 Pulmonary insuff [TXJ0795] 07/13/2012 07/23/2020 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 [...] MARIA GLOVER on 07/28/23 Normal [facility] ICD REMOTE CHECKon 3 AV Delay Adaptive Paced Minimum (ms) 350 ms [facility] AV Delay Adaptive Rate Maximum (bpm) 90 {beats}/min [facility] AV Delay Adaptive Rate Minimum (bpm) 75 {beats}/min [facility] AV Delay Adaptive Sensed Minimum (ms) 250 ms [facility] AV Delay Adaptive Status ENABLED [facility] AV Delay Paced (ms) 100 ms [facility] AV Delay Sensed (ms) 70 ms [facility] Battery Voltage 2.72 V [facility] Scott RA Pacing Amplitude (volts) 2 V [facility] Scott RA Pacing Polarity BI [facility] Scott RA Pacing Pulse Width (ms) 0.4 ms [facility] Scott RA Sensing Amplitude (mvolts) 0.3 mV [facility] Scott RA Sensing Blanking Period (ms) 150 ms [facility] Scott RA Sensing Polarity BI [facility] Scott RA Sensing Refractory Period (ms) 250 ms [facility] Scott RV Pacing Amplitude (volts) 2.25 V [facility] Scott RV Pacing Polarity BI [facility] Scott RV Pacing Pulse Width (ms) 0.4 ms [facility] Scott RV Sensing Amplitude (mvolts) 0.3 mV [facility] Scott RV Sensing Blanking Period (ms) 200 ms [facility] Scott RV Sensing Polarity BI [facility] Detection Configuration (Vent) 2 - Zone [facility] FastVT_Detection Interval 450 ms [facility] FastVT_Therapy Configuration 2 ATP(s) + 0 Shock(s) [facility] ICD AFIB DetectionStatus DISABLED [facility] ICD ATAF DetectionInterval ms 450 ms [facility] ICD ATAF DetectionStatus ENABLED [facility] ICD ATAF TherapyConfiguration 2 ATP(s) + 0 Shock(s) [facility] ICD FastVT DetectionStatus ENABLED [facility] ICD-ADLRATE_BPM 85 {beats}/min [facility] ICD-AMS EPISODES 133 {beats}/min [facility] ICD-ATP Episodes (Vent) 0 [facility] ICD-ATRIALFIBRILLATION 535 Cl [facility] ICD-ATRIALTACHYCARDIA 535 [facility] ICD-ATRIALTACHYCARDIA 18 [facility] ICD-ATRIALTACHYCARDIA 9 [facility] ICD-Counters Cleared Date 09/23/2016 [facility] ICD-Device Mfg MDT [facility] ICD-Fast Ventricular Tachycardia 9 [facility] ICD-LEADIMPEDANCEATRIA L 342 ohm [facility] ICD-Percent Pacing (Atrial) 76.76 % [facility] ICD-Percent Pacing (Vent) 95.69 % [facility] ICD-PMT Intervention ENABLED [facility] ICD-PVC Intervention ENABLED [facility] ICD-Rate Modulation Acceleration Reaction 30 s [facility] ICD-Rate Modulation Deceleration Exercise [facility] ICD-Rate Modulation Centre 3 [facility] ICD-Rate Modulation Threshold MediumHigh [facility] ICD-Shocks Aborted (Vent) 0 [facility] [id number] 0 [facility] ICD-SHOCKSABORTED 0 [facility] ICD-SHOCKSDELIVEREDVEN TRICULAR 0 [facility] ICD-Ventricular Fibrillation 0 [facility] Implant Date 07/03/2005 [facility] Implant Date 11/30/2002 [facility] Lead Impedance (LV) 4047 ohm [facility] Lead Impedance (RV) 779 ohm [facility] Lead Impedance High Voltage 59 ohm [facility] Lead1 Mfg MDT [facility] Lead2 Mfg MDT [facility] Lead3 Mfg GDT [facility] Location LV [facility] Location RA [facility] Location RV [facility] Lower Rate (bpm) 80 {beats}/min [facility] LV PACING % 0 % [facility] Max Sensor Rate (bpm) 90 {beats}/min [facility] MDT_PROG_TACHY_ZONE_DE TECTIONS_STATUS ENABLED [facility] Model [id number] Viva XT DONOR SUPPORT TECHNICIAN-D [facility] Model 4196 Attain Ability MRI SureScan [facility] Model 5076 CapSureFix Novus [facility] Model 0144 [employer] Rx [facility] Pacing Mode DDDR [facility] Serial Number [id number] [facility] Serial Number [id number] [facility] Serial Number [id number] [facility] Serial Number [id number] [facility] Test Charge Energy 18 J [facility] Test Charge Time 5.525 [facility] Therapy Status (Vent) Enabled [facility] Thresh RA Capture Amplitude (volts) 0.625 V [facility] Thresh RA Capture Duration (ms) 0.4 ms [facility] Thresh RA Sensing Amplitude (mvolts) 1.625 mV [facility] Thresh RV Capture Amplitude (VOLTS) 1 V [facility] Thresh RV Capture Duration (MS) 0.4 ms [facility] Thresh RV Sensing Amplitude (MVOLTS) 11.625 mV [facility] Tracking Rate (bpm) 90 {beats}/min [facility] VF Zone Detection Interval 450 ms [facility] VF Zone Therapy Configuration 2 ATP(s) + 0 Shock(s) [facility] No Panel Informationon 07-28 BLANK _ [facility] ICD-ATRIALTACHYCARDIA 0 [facility] ICD-Fast Ventricular Tachycardia 0 [facility] Implant Date 09/23/2016 [facility] ED Note-Physicianon 07-05-20 ED Note-Physician [phone] [id number]#[id number] Normal [facility] ED Note-Physician [id number]#[id number] Normal [facility] ED Note-Physician [id number]#[id number] Normal [facility] Physician Referralon 023 Physician Referral [phone]. [id number]#[id number]:12 7 Normal [facility] ICD REMOTE CHECKon 3 AV Delay Adaptive Paced Minimum (ms) 350 ms [facility] AV Delay Adaptive Rate Maximum (bpm) 90 {beats}/min [facility] AV Delay Adaptive Rate Minimum (bpm) 75 {beats}/min [facility] AV Delay Adaptive Sensed Minimum (ms) 250 ms [facility] AV Delay Adaptive Status ENABLED [facility] AV Delay Paced (ms) 100 ms [facility] AV Delay Sensed (ms) 70 ms [facility] Battery Voltage 2.77 V [facility] Scott RA Pacing Amplitude (volts) 2 V [facility] Scott RA Pacing Polarity BI [facility] Scott RA Pacing Pulse Width (ms) 0.4 ms [facility] Scott RA Sensing Amplitude (mvolts) 0.3 mV [facility] Scott RA Sensing Blanking Period (ms) 150 ms [facility] Scott RA Sensing Polarity BI [facility] Scott RA Sensing Refractory Period (ms) 250 ms [facility] Scott RV Pacing Amplitude (volts) 2.5 V [facility] Scott RV Pacing Polarity BI [facility] Scott RV Pacing Pulse Width (ms) 0.4 ms [facility] Scott RV Sensing Amplitude (mvolts) 0.3 mV [facility] Scott RV Sensing Blanking Period (ms) 200 ms [facility] Scott RV Sensing Polarity BI [facility] Detection Configuration (Vent) 2 - Zone [facility] FastVT_Detection Interval 450 ms [facility] FastVT_Therapy Configuration 2 ATP(s) + 0 Shock(s) [facility] ICD AFIB DetectionStatus DISABLED [facility] ICD ATAF DetectionInterval ms 450 ms [facility] ICD ATAF DetectionStatus ENABLED [facility] ICD ATAF TherapyConfiguration 2 ATP(s) + 0 Shock(s) [facility] ICD FastVT DetectionStatus ENABLED [facility] ICD-ADLRATE_BPM 85 {beats}/min [facility] ICD-AMS EPISODES 133 {beats}/min [facility] ICD-ATP Episodes (Vent) 0 [facility] ICD-ATRIALFIBRILLATION 10 Cl [facility] ICD-ATRIALTACHYCARDIA 10 [facility] ICD-Counters Cleared Date 09/23/2016 [facility] ICD-Device Mfg MDT [facility] ICD-LEADIMPEDANCEATRIA L 361 ohm [facility] ICD-Percent Pacing (Atrial) 50.68 % [facility] ICD-Percent Pacing (Vent) 87.63 % [facility] ICD-PMT Intervention ENABLED [facility] ICD-PVC Intervention ENABLED [facility] ICD-Rate Modulation Acceleration Reaction 30 s [facility] ICD-Rate Modulation Deceleration Exercise [facility] ICD-Rate Modulation Centre 3 [facility] ICD-Rate Modulation Threshold MediumHigh [facility] ICD-Shocks Aborted (Vent) 0 [facility] [id number] 0 [facility] ICD-SHOCKSABORTED 0 [facility] ICD-SHOCKSDELIVEREDVEN TRICULAR 0 [facility] ICD-Ventricular Fibrillation 0 [facility] Implant Date 07/03/2005 [facility] Implant Date 11/30/2002 [facility] Lead Impedance (LV) 4047 ohm [facility] Lead Impedance (RV) 779 ohm [facility] Lead Impedance High Voltage 61 ohm [facility] Lead1 Mfg MDT [facility] Lead2 Mfg MDT [facility] Lead3 Mfg GDT [facility] Location LV [facility] Location RA [facility] Location RV [facility] Lower Rate (bpm) 80 {beats}/min [facility] LV PACING % 0 % [facility] Max Sensor Rate (bpm) 90 {beats}/min [facility] RENATO_PROG_TACHY_ZONE_DE TECTIONS_STATUS ENABLED [facility] Model [id number] Viva XT DONOR SUPPORT TECHNICIAN-D [facility] Model 4196 Attain Ability MRI SureScan [facility] Model 5076 CapSureFix [facility] Model 0144 [employer] Rx [facility] Pacing Mode DDDR [facility] Serial Number [id number] [facility] Serial Number [id number] [facility] Serial Number [id number] [facility] Serial Number [id number] [facility] Test Charge [employer] 18 J [facility] Test Charge Time 5.145 [facility] Therapy Status (Vent) Enabled [facility] Thresh RA Capture Amplitude (volts) 0.625 V [facility] Thresh RA Capture Duration (ms) 0.4 ms [facility] Thresh RA Sensing Amplitude (mvolts) 2.875 mV [facility] Thresh RV Capture Amplitude (VOLTS) 1 V [facility] Thresh RV Capture Duration (MS) 0.4 ms [facility] Thresh RV Sensing Amplitude (MVOLTS) 6.875 mV [facility] Tracking Rate (bpm) 90 {beats}/min [facility] VF Zone Detection Interval 450 ms [facility] VF Zone Therapy Configuration 2 ATP(s) + 0 Shock(s) [facility] No Panel Informationon 05-06 BLANK _ [facility] ICD-ATRIALTACHYCARDIA 0 [facility] ICD-Fast Ventricular Tachycardia 0 [facility] Implant Date 09/23/2016 [facility] ICD REMOTE CHECKon 3 AV Delay Adaptive Paced Minimum (ms) 350 ms [facility] AV Delay Adaptive Rate Maximum (bpm) 90 {beats}/min [facility] AV Delay Adaptive Rate Minimum (bpm) 75 {beats}/min [facility] AV Delay Adaptive Sensed Minimum (ms) 250 ms [facility] AV Delay Adaptive Status ENABLED [facility] AV Delay Paced (ms) 100 ms [facility] AV Delay Sensed (ms) 70 ms [facility] Battery Voltage 2.77 V [facility] Scott RA Pacing Amplitude (volts) 2 V [facility] Scott RA Pacing Polarity BI [facility] Scott RA Pacing Pulse Width (ms) 0.4 ms [facility] Scott RA Sensing Amplitude (mvolts) 0.3 mV [facility] Scott RA Sensing Blanking Period (ms) 150 ms [facility] Scott RA Sensing Polarity BI [facility] Scott RA Sensing Refractory Period (ms) 250 ms [facility] Scott RV Pacing Amplitude (volts) 2.75 V [facility] Scott RV Pacing Polarity BI [facility] Scott RV Pacing Pulse Width (ms) 0.4 ms [facility] Scott RV Sensing Amplitude (mvolts) 0.3 mV [facility] Scott RV Sensing Blanking Period (ms) 200 ms [facility] Scott RV Sensing Polarity BI [facility] Detection Configuration (Vent) 2 - Zone [facility] FastVT_Detection Interval 450 ms [facility] FastVT_Therapy Configuration 2 ATP(s) + 0 Shock(s) [facility] ICD AFIB DetectionStatus DISABLED [facility] ICD ATAF DetectionInterval ms 450 ms [facility] ICD ATAF DetectionStatus ENABLED [facility] ICD ATAF TherapyConfiguration 2 ATP(s) + 0 Shock(s) [facility] ICD FastVT DetectionStatus ENABLED [facility] ICD-ADLRATE_BPM 85 {beats}/min [facility] ICD-AMS EPISODES 133 {beats}/min [facility] ICD-ATP Episodes (Vent) 0 [facility] ICD-ATRIALFIBRILLATION 4 Cl [facility] ICD-ATRIALTACHYCARDIA 4 [facility] ICD-Counters Cleared Date 09/23/2016 [facility] ICD-Device Emilyg T [facility] ICD-LEADIMPEDANCEATRIA L 342 ohm [facility] ICD-Percent Pacing (Atrial) 46.68 % [facility] ICD-Percent Pacing (Vent) 90.31 % [facility] ICD-PMT Intervention ENABLED [facility] ICD-PVC Intervention ENABLED [facility] ICD-Rate Modulation Acceleration Reaction 30 s [facility] ICD-Rate Modulation Deceleration Exercise [facility] ICD-Rate Modulation Centre 3 [facility] ICD-Rate Modulation Threshold MediumHigh [facility] ICD-Shocks Aborted (Vent) 0 [facility] [id number] 0 [facility] ICD-SHOCKSABORTED 0 [facility] ICD-SHOCKSDELIVEREDVEN TRICULAR 0 [facility] ICD-Ventricular Fibrillation 0 [facility] Implant Date 07/03/2005 [facility] Implant Date 11/30/2002 [facility] Lead Impedance (LV) 4047 ohm [facility] Lead Impedance (RV) 760 ohm [facility] Lead Impedance High Voltage 64 ohm [facility] Lead1 Emilyg MDT [facility] Lead2 Emilyg MDT [facility] Lead3 Mfg GDT [facility] Location LV [facility] Location RA [facility] Location RV [facility] Lower Rate (bpm) 80 {beats}/min [facility] LV PACING % 0 % [facility] Max Sensor Rate (bpm) 90 {beats}/min [facility] MDT_PROG_TACHY_ZONE_DE TECTIONS_STATUS ENABLED [facility] Model [id number] Viva XT DONOR SUPPORT TECHNICIAN-D [facility] Model 4196 Attain Ability MRI SureScan [facility] Model 5076 CapSureFix [facility] Model 0144 [employer] End[employer] Rx [facility] Pacing Mode DDDR [facility] Serial Number [id number] [facility] Serial Number [id number] [facility] Serial Number [id number] [facility] Serial Number [id number] [facility] Test Charge [employer] 18 J [facility] Test Charge Time 5.145 [facility] Therapy Status (Vent) Enabled [facility] Thresh RA Capture Amplitude (volts) 0.625 V [facility] Thresh RA Capture Duration (ms) 0.4 ms [facility] Thresh RA Sensing Amplitude (mvolts) 2.5 mV [facility] Thresh RV Capture Amplitude (VOLTS) 1.375 V [facility] Thresh RV Capture Duration (MS) 0.4 ms [facility] Thresh RV Sensing Amplitude (MVOLTS) 7.5 mV [facility] Tracking Rate (bpm) 90 {beats}/min [facility] VF Zone Detection Interval 450 ms [facility] VF Zone Therapy Configuration 2 ATP(s) + 0 Shock(s) [facility] No Panel Informationon 04-22 BLANK _ [facility] ICD-ATRIALTACHYCARDIA 0 [facility] ICD-Fast Ventricular Tachycardia 0 [facility] Implant Date 09/23/2016 [facility] ICD REMOTE CHECKon 3 AV Delay Adaptive Paced Minimum (ms) 350 ms [facility] AV Delay Adaptive Rate Maximum (bpm) 90 {beats}/min [facility] AV Delay Adaptive Rate Minimum (bpm) 75 {beats}/min [facility] AV Delay Adaptive Sensed Minimum (ms) 250 ms [facility] AV Delay Adaptive Status ENABLED [facility] AV Delay Paced (ms) 100 ms [facility] AV Delay Sensed (ms) 70 ms [facility] Battery Voltage 2.78 V [facility] Scott RA Pacing Amplitude (volts) 2 V [facility] Scott RA Pacing Polarity BI [facility] Scott RA Pacing Pulse Width (ms) 0.4 ms [facility] Scott RA Sensing Amplitude (mvolts) 0.3 mV [facility] Scott RA Sensing Blanking Period (ms) 150 ms [facility] Scott RA Sensing Polarity BI [facility] Scott RA Sensing Refractory Period (ms) 250 ms [facility] Scott RV Pacing Amplitude (volts) 3 V [facility] Scott RV Pacing Polarity BI [facility] Scott RV Pacing Pulse Width (ms) 0.4 ms [facility] Scott RV Sensing Amplitude (mvolts) 0.3 mV [facility] Scott RV Sensing Blanking Period (ms) 200 ms [facility] Scott RV Sensing Polarity BI [facility] Detection Configuration (Vent) 2 - Zone [facility] FastVT_Detection Interval 450 ms [facility] FastVT_Therapy Configuration 2 ATP(s) + 0 Shock(s) [facility] ICD AFIB DetectionStatus DISABLED [facility] ICD ATAF DetectionInterval ms 450 ms [facility] ICD ATAF DetectionStatus ENABLED [facility] ICD ATAF TherapyConfiguration 2 ATP(s) + 0 Shock(s) [facility] ICD FastVT DetectionStatus ENABLED [facility] ICD-ADLRATE_BPM 85 {beats}/min [facility] ICD-AMS EPISODES 133 {beats}/min [facility] ICD-ATP Episodes (Vent) 0 [facility] ICD-ATRIALFIBRILLATION 0 Cl [facility] ICD-Counters Cleared Date 09/23/2016 [facility] ICD-Device Sri GROSS [facility] ICD-LEADIMPEDANCEATRIA L 342 ohm [facility] ICD-Percent Pacing (Atrial) 44.86 % [facility] ICD-Percent Pacing (Vent) 83.22 % [facility] ICD-PMT Intervention ENABLED [facility] ICD-PVC Intervention ENABLED [facility] ICD-Rate Modulation Acceleration Reaction 30 s [facility] ICD-Rate Modulation Deceleration Exercise [facility] ICD-Rate Modulation Centre 3 [facility] ICD-Rate Modulation Threshold MediumHigh [facility] ICD-Shocks Aborted (Vent) 0 [facility] [id number] 0 [facility] ICD-SHOCKSABORTED 0 [facility] ICD-SHOCKSDELIVEREDVEN TRICULAR 0 [facility] ICD-Ventricular Fibrillation 0 [facility] Implant Date 07/03/2005 [facility] Implant Date 11/30/2002 [facility] Lead Impedance (LV) 4047 ohm [facility] Lead Impedance (RV) 779 ohm [facility] Lead Impedance High Voltage 61 ohm [facility] Lead1 Sri GROSS [facility] Lead2 Mfg MDT [facility] Lead3 Mfg GDT [facility] Location LV [facility] Location RA [facility] Location RV [facility] Lower Rate (bpm) 80 {beats}/min [facility] LV PACING % 0 % [facility] Max Sensor Rate (bpm) 90 {beats}/min [facility] MDT_PROG_TACHY_ZONE_DE TECTIONS_STATUS ENABLED [facility] Model [id number] Viva XT DONOR SUPPORT TECHNICIAN-D [facility] Model 4196 Attain Ability MRI SureScan [facility] Model 5076 CapSureFix [facility] Model 0144 [employer] Endurance Rx [facility] Pacing Mode DDDR [facility] Serial Number [id number] [facility] Serial Number [id number] [facility] Serial Number [id number] [facility] Serial Number [id number] [facility] Test Charge [employer] 18 J [facility] Test Charge Time 5.145 [facility] Therapy Status (Vent) Enabled [facility] Thresh RA Capture Amplitude (volts) 0.625 V [facility] Thresh RA Capture Duration (ms) 0.4 ms [facility] Thresh RA Sensing Amplitude (mvolts) 2 mV [facility] Thresh RV Capture Amplitude (VOLTS) 1.125 V [facility] Thresh RV Capture Duration (MS) 0.4 ms [facility] Thresh RV Sensing Amplitude (MVOLTS) 9.25 mV [facility] Tracking Rate (bpm) 90 {beats}/min [facility] VF Zone Detection Interval 450 ms [facility] VF Zone Therapy Configuration 2 ATP(s) + 0 Shock(s) [facility] AV Delay Adaptive Paced Minimum (ms) 350 ms [facility] AV Delay Adaptive Rate Maximum (bpm) 90 {beats}/min [facility] AV Delay Adaptive Rate Minimum (bpm) 75 {beats}/min [facility] [facility] Adaptive Sensed Minimum (ms) 250 ms [facility] AV Delay Adaptive Status ENABLED [facility] AV Delay Paced (ms) 100 ms [facility] AV Delay Sensed (ms) 70 ms [facility] Battery Voltage 2.78 V [facility] Scott RA Pacing Amplitude (volts) 2 V [facility] Scott RA Pacing Polarity BI [facility] Scott RA Pacing Pulse Width (ms) 0.4 ms [facility] Scott RA Sensing Amplitude (mvolts) 0.3 mV [facility] Scott RA Sensing Blanking Period (ms) 150 ms [facility] Scott RA Sensing Polarity BI [facility] Scott RA Sensing Refractory Period (ms) 250 ms [facility] Scott RV Pacing Amplitude (volts) 3 V [facility] Scott RV Pacing Polarity BI [facility] Scott RV Pacing Pulse Width (ms) 0.4 ms [facility] Scott RV Sensing Amplitude (mvolts) 0.3 mV [facility] Scott RV Sensing Blanking Period (ms) 200 ms [facility] Scott RV Sensing Polarity BI [facility] Detection Configuration (Vent) 2 - Zone [facility] FastVT_Detection Interval 450 ms [facility] FastVT_Therapy Configuration 2 ATP(s) + 0 Shock(s) [facility] ICD AFIB DetectionStatus DISABLED [facility] ICD ATAF DetectionInterval ms 450 ms [facility] ICD ATAF DetectionStatus ENABLED [facility] ICD ATAF TherapyConfiguration 2 ATP(s) + 0 Shock(s) [facility] ICD FastVT DetectionStatus ENABLED [facility] ICD-ADLRATE_BPM 85 {beats}/min [facility] ICD-AMS EPISODES 133 {beats}/min [facility] ICD-ATP Episodes (Vent) 0 [facility] ICD-ATRIALFIBRILLATION 0 Cl [facility] ICD-Counters Cleared Date 09/23/2016 [facility] ICD-Device Mfg MDT [facility] ICD-LEADIMPEDANCEATRIA L 342 ohm [facility] ICD-Percent Pacing (Atrial) 80.04 % [facility] ICD-Percent Pacing (Vent) 89.35 % [facility] ICD-PMT Intervention ENABLED [facility] ICD-PVC Intervention ENABLED [facility] ICD-Rate Modulation Acceleration Reaction 30 s [facility] ICD-Rate Modulation Deceleration Exercise [facility] ICD-Rate Modulation Centre 3 [facility] ICD-Rate Modulation Threshold MediumHigh [facility] ICD-Shocks Aborted (Vent) 0 [facility] [id number] 0 [facility] ICD-SHOCKSABORTED 0 [facility] ICD-SHOCKSDELIVEREDVEN TRICULAR 0 [facility] ICD-Ventricular Fibrillation 0 [facility] Implant Date 07/03/2005 [facility] Implant Date 11/30/2002 [facility] Lead Impedance (LV) 4047 ohm [facility] Lead Impedance (RV) 760 ohm [facility] Lead Impedance High Voltage 63 ohm [facility] Lead1 Mfg MDT [facility] Lead2 Mfg MDT [facility] Lead3 Mfg GDT [facility] Location LV [facility] Location RA [facility] Location RV [facility] Lower Rate (bpm) 80 {beats}/min [facility] LV PACING % 0 % [facility] Max Sensor Rate (bpm) 90 {beats}/min [facility] MDT_PROG_TACHY_ZONE_DE TECTIONS_STATUS ENABLED [facility] Model [id number] Viva XT DONOR SUPPORT TECHNICIAN-D [facility] Model 4196 Attain Ability MRI SureScan [facility] Model 5076 CapSureFix [facility] Model 0144 [employer] Rx [facility] Pacing Mode DDDR [facility] Serial Number [id number] [facility] Serial Number [id number] [facility] Serial Number [id number] [facility] Serial Number [id number] [facility] Test Charge Energy 18 J [facility] Test Charge Time 5.145 [facility] Therapy Status (Vent) Enabled [facility] Thresh RA Capture Amplitude (volts) 0.625 V [facility] Thresh RA Capture Duration (ms) 0.4 ms [facility] Thresh RA Sensing Amplitude (mvolts) 2.375 mV [facility] Thresh RV Capture Amplitude (VOLTS) 1.125 V [facility] Thresh RV Capture Duration (MS) 0.4 ms [facility] Thresh RV Sensing Amplitude (MVOLTS) 8.75 mV [facility] Tracking Rate (bpm) 90 {beats}/min [facility] VF Zone Detection Interval 450 ms [facility] VF Zone Therapy Configuration 2 ATP(s) + 0 Shock(s) [facility] No Panel Informationon 04-09 [facility] _ [facility] ICD-ATRIALTACHYCARDIA 0 [facility] ICD-Fast Ventricular Tachycardia 0 [facility] Implant Date 09/23/2016 [facility] BLANK _ [facility] ICD-ATRIALTACHYCARDIA 0 [facility] ICD-Fast Ventricular Tachycardia 0 [facility] Implant Date 09/23/2016 [facility] ICD REMOTE CHECKon 3 AV Delay Adaptive Paced Minimum (ms) 350 ms [facility] AV Delay Adaptive Rate Maximum (bpm) 90 {beats}/min [facility] AV Delay Adaptive Rate Minimum (bpm) 75 {beats}/min [facility] AV Delay Adaptive Sensed Minimum (ms) 250 ms [facility] AV Delay Adaptive Status ENABLED [facility] AV Delay Paced (ms) 100 ms [facility] AV Delay Sensed (ms) 70 ms [facility] Battery Voltage 2.79 V [facility] Scott RA Pacing Amplitude (volts) 2 V [facility] Scott RA Pacing Polarity BI [facility] Scott RA Pacing Pulse Width (ms) 0.4 ms [facility] Scott RA Sensing Amplitude (mvolts) 0.3 mV [facility] Scott RA Sensing Blanking Period (ms) 150 ms [facility] Scott RA Sensing Polarity BI [facility] Scott RA Sensing Refractory Period (ms) 250 ms [facility] Scott RV Pacing Amplitude (volts) 3 V [facility] Scott RV Pacing Polarity BI [facility] Scott RV Pacing Pulse Width (ms) 0.4 ms [facility] Scott RV Sensing Amplitude (mvolts) 0.3 mV [facility] Scott RV Sensing Blanking Period (ms) 200 ms [facility] Scott RV Sensing Polarity BI [facility] Detection Configuration (Vent) 2 - Zone [facility] FastVT_Detection Interval 450 ms [facility] FastVT_Therapy Configuration 2 ATP(s) + 0 Shock(s) [facility] ICD AFIB DetectionStatus DISABLED [facility] ICD ATAF DetectionInterval ms 450 ms [facility] ICD ATAF DetectionStatus ENABLED [facility] ICD ATAF TherapyConfiguration 2 ATP(s) + 0 Shock(s) [facility] ICD FastVT DetectionStatus ENABLED [facility] ICD-ADLRATE_BPM 85 {beats}/min [facility] ICD-AMS EPISODES 133 {beats}/min [facility] ICD-ATP Episodes (Vent) 0 [facility] ICD-ATRIALFIBRILLATION 0 Cl [facility] ICD-Counters Cleared Date 09/23/2016 [facility] ICD-Device Mfg MDT [facility] ICD-LEADIMPEDANCEATRIA L 342 ohm [facility] ICD-Percent Pacing (Atrial) 81.31 % [facility] ICD-Percent Pacing (Vent) 99.41 % [facility] ICD-PMT Intervention ENABLED [facility] ICD-PVC Intervention ENABLED [facility] ICD-Rate Modulation Acceleration Reaction 30 s [facility] ICD-Rate Modulation Deceleration Exercise [facility] ICD-Rate Modulation Centre 3 [facility] ICD-Rate Modulation Threshold MediumHigh [facility] ICD-Shocks Aborted (Vent) 0 [facility] [id number] 0 [facility] ICD-SHOCKSABORTED 0 [facility] ICD-SHOCKSDELIVEREDVEN TRICULAR 0 [facility] ICD-Ventricular Fibrillation 0 [facility] Implant Date 07/03/2005 [facility] Implant Date 11/30/2002 [facility] Lead Impedance (LV) 4047 ohm [facility] Lead Impedance (RV) 722 ohm [facility] Lead Impedance High Voltage 61 ohm [facility] Lead1 Mfg MDT [facility] Lead2 Mfg MDT [facility] Lead3 Mfg GDT [facility] Location LV [facility] Location RA [facility] Location RV [facility] Lower Rate (bpm) 80 {beats}/min [facility] LV PACING % 0 % [facility] Max Sensor Rate (bpm) 90 {beats}/min [facility] MDT_PROG_TACHY_ZONE_DE TECTIONS_STATUS ENABLED [facility] Model [id number] Viva XT DONOR SUPPORT TECHNICIAN-D [facility] Model 4196 Attain Ability MRI SureScan [facility] Model 5076 CapSureFix [facility] Model 0144 [employer] End[employer] Rx [facility] Pacing Mode DDDR [facility] Serial Number [id number] [facility] Serial Number [id number] [facility] Serial Number [id number] [facility] Serial Number [id number] [facility] Test Charge [employer] 18 J [facility] Test Charge Time 5.145 [facility] Therapy Status (Vent) Enabled [facility] Thresh RA Capture Amplitude (volts) 0.625 V [facility] Thresh RA Capture Duration (ms) 0.4 ms [facility] Thresh RA Sensing Amplitude (mvolts) 3 mV [facility] Thresh RV Capture Amplitude (VOLTS) 1.25 V [facility] Thresh RV Capture Duration (MS) 0.4 ms [facility] Thresh RV Sensing Amplitude (MVOLTS) 8.75 mV [facility] Tracking Rate (bpm) 90 {beats}/min [facility] VF Zone Detection Interval 450 ms [facility] VF Zone Therapy Configuration 2 ATP(s) + 0 Shock(s) [facility] AV Delay Adaptive Paced Minimum (ms) 350 ms [facility] AV Delay Adaptive Rate Maximum (bpm) 90 {beats}/min [facility] AV Delay Adaptive Rate Minimum (bpm) 75 {beats}/min [facility] AV Delay Adaptive Sensed Minimum (ms) 250 ms [facility] AV Delay Adaptive Status ENABLED [facility] AV Delay Paced (ms) 100 ms [facility] AV Delay Sensed (ms) 70 ms [facility] Battery Voltage 2.79 V [facility] Scott RA Pacing Amplitude (volts) 2 V [facility] Scott RA Pacing Polarity BI [facility] Scott RA Pacing Pulse Width (ms) 0.4 ms [facility] Scott RA Sensing Amplitude (mvolts) 0.3 mV [facility] Scott RA Sensing Blanking Period (ms) 150 ms [facility] Scott RA Sensing Polarity BI [facility] Scott RA Sensing Refractory Period (ms) 250 ms [facility] Scott RV Pacing Amplitude (volts) 2.75 V [facility] Scott RV Pacing Polarity BI [facility] Scott RV Pacing Pulse Width (ms) 0.4 ms [facility] Scott RV Sensing Amplitude (mvolts) 0.3 mV [facility] Scott RV Sensing Blanking Period (ms) 200 ms [facility] Scott RV Sensing Polarity BI [facility] Detection Configuration (Vent) 2 - Zone [facility] FastVT_Detection Interval 450 ms [facility] FastVT_Therapy Configuration 2 ATP(s) + 0 Shock(s) [facility] ICD AFIB DetectionStatus DISABLED [facility] ICD ATAF DetectionInterval ms 450 ms [facility] ICD ATAF DetectionStatus ENABLED [facility] ICD ATAF TherapyConfiguration 2 ATP(s) + 0 Shock(s) [facility] ICD FastVT DetectionStatus ENABLED [facility] ICD-ADLRATE_BPM 85 {beats}/min [facility] ICD-AMS EPISODES 133 {beats}/min [facility] ICD-ATP Episodes (Vent) 0 [facility] ICD-ATRIALFIBRILLATION 0 Cl [facility] ICD-Counters Cleared Date 09/23/2016 [facility] ICD-Device Mfg MDT [facility] ICD-LEADIMPEDANCEATRIA L 342 ohm [facility] ICD-Percent Pacing (Atrial) 99.2 % [facility] ICD-Percent Pacing (Vent) 99.87 % [facility] ICD-PMT Intervention ENABLED [facility] ICD-PVC Intervention ENABLED [facility] ICD-Rate Modulation Acceleration Reaction 30 s [facility] ICD-Rate Modulation Deceleration Exercise [facility] ICD-Rate Modulation Centre 3 [facility] ICD-Rate Modulation Threshold MediumHigh [facility] ICD-Shocks Aborted (Vent) 0 [facility] [id number] 0 [facility] ICD-SHOCKSABORTED 0 [facility] ICD-SHOCKSDELIVEREDVEN TRICULAR 0 [facility] ICD-Ventricular Fibrillation 0 [facility] Implant Date 07/03/2005 [facility] Implant Date 11/30/2002 [facility] Lead Impedance (LV) 4047 ohm [facility] Lead Impedance (RV) 722 ohm [facility] Lead Impedance High Voltage 62 ohm [facility] Lead1 Mfg MDT [facility] Lead2 Mfg MDT [facility] Lead3 Mfg GDT [facility] Location LV [facility] Location RA [facility] Location RV [facility] Lower Rate (bpm) 80 {beats}/min [facility] LV PACING % 0 % [facility] Max Sensor Rate (bpm) 90 {beats}/min [facility] MDT_PROG_TACHY_ZONE_DE TECTIONS_STATUS ENABLED [facility] Model [id number] Viva XT DONOR SUPPORT TECHNICIAN-D [facility] Model 4196 Attain Ability MRI SureScan [facility] Model 5076 CapSureFix [facility] Model 0144 [employer] End[employer] Rx [facility] Pacing Mode DDDR [facility] Serial Number [id number] [facility] Serial Number [id number] [facility] Serial Number [id number] [facility] Serial Number [id number] [facility] Test Charge [employer] 18 J [facility] Test Charge Time 5.145 [facility] Therapy Status (Vent) Enabled [facility] Thresh RA Capture Amplitude (volts) 0.625 V [facility] Thresh RA Capture Duration (ms) 0.4 ms [facility] Thresh RA Sensing Amplitude (mvolts) 2.25 mV [facility] Thresh RV Capture Amplitude (VOLTS) 1.375 V [facility] Thresh RV Capture Duration (MS) 0.4 ms [facility] Thresh RV Sensing Amplitude (MVOLTS) 8.125 mV [facility] Tracking Rate (bpm) 90 {beats}/min [facility] VF Zone Detection Interval 450 ms [facility] VF Zone Therapy Configuration 2 ATP(s) + 0 Shock(s) [facility] No Panel Informationon 03-29 BLANK _ [facility] ICD-ATRIALTACHYCARDIA 0 [facility] ICD-Fast Ventricular Tachycardia 0 [facility] Implant Date 09/23/2016 [facility] BLANK _ [facility] ICD-ATRIALTACHYCARDIA 0 [facility] ICD-Fast Ventricular Tachycardia 0 [facility] Implant Date 09/23/2016 [facility] ICD REMOTE CHECKon 3 AV Delay Adaptive Paced Minimum (ms) 350 ms [facility] AV Delay Adaptive Rate Maximum (bpm) 90 {beats}/min [facility] AV Delay Adaptive Rate Minimum (bpm) 75 {beats}/min [facility] AV Delay Adaptive Sensed Minimum (ms) 250 ms [facility] AV Delay Adaptive Status ENABLED [facility] AV Delay Paced (ms) 100 ms [facility] AV Delay Sensed (ms) 70 ms [facility] Battery Voltage 2.79 V [facility] Scott RA Pacing Amplitude (volts) 2 V [facility] Scott RA Pacing Polarity BI [facility] Scott RA Pacing Pulse Width (ms) 0.4 ms [facility] Scott RA Sensing Amplitude (mvolts) 0.3 mV [facility] Scott RA Sensing Blanking Period (ms) 150 ms [facility] Scott RA Sensing Polarity BI [facility] Scott RA Sensing Refractory Period (ms) 250 ms [facility] Scott RV Pacing Amplitude (volts) 2.75 V [facility] Scott RV Pacing Polarity BI [facility] Scott RV Pacing Pulse Width (ms) 0.4 ms [facility] Scott RV Sensing Amplitude (mvolts) 0.3 mV [facility] Scott RV Sensing Blanking Period (ms) 200 ms [facility] Scott RV Sensing Polarity BI [facility] Detection Configuration (Vent) 2 - Zone [facility] FastVT_Detection Interval 450 ms [facility] FastVT_Therapy Configuration 2 ATP(s) + 0 Shock(s) [facility] ICD AFIB DetectionStatus DISABLED [facility] ICD ATAF DetectionInterval ms 450 ms [facility] ICD ATAF DetectionStatus ENABLED [facility] ICD ATAF TherapyConfiguration 2 ATP(s) + 0 Shock(s) [facility] ICD FastVT DetectionStatus ENABLED [facility] ICD-ADLRATE_BPM 85 {beats}/min [facility] ICD-AMS EPISODES 133 {beats}/min [facility] ICD-ATP Episodes (Vent) 0 [facility] ICD-ATRIALFIBRILLATION 0 Cl [facility] ICD-Counters Cleared Date 09/23/2016 [facility] ICD-Device Mfg MDT [facility] ICD-LEADIMPEDANCEATRIA L 342 ohm [facility] ICD-Percent Pacing (Atrial) 99.95 % [facility] ICD-Percent Pacing (Vent) 99.97 % [facility] ICD-PMT Intervention ENABLED [facility] ICD-PVC Intervention ENABLED [facility] ICD-Rate Modulation Acceleration Reaction 30 s [facility] ICD-Rate Modulation Deceleration Exercise [facility] ICD-Rate Modulation Centre 3 [facility] ICD-Rate Modulation Threshold MediumHigh [facility] ICD-Shocks Aborted (Vent) 0 [facility] [id number] 0 [facility] ICD-SHOCKSABORTED 0 [facility] ICD-SHOCKSDELIVEREDVEN TRICULAR 0 [facility] ICD-Ventricular Fibrillation 0 [facility] Implant Date 07/03/2005 [facility] Implant Date 11/30/2002 [facility] Lead Impedance (LV) 4047 ohm [facility] Lead Impedance (RV) 760 ohm [facility] Lead Impedance High Voltage 59 ohm [facility] Lead1 Mfg MDT [facility] Lead2 Mfg MDT [facility] Lead3 Mfg GDT [facility] Location LV [facility] Location RA [facility] Location RV [facility] Lower Rate (bpm) 80 {beats}/min [facility] LV PACING % 0 % [facility] Max Sensor Rate (bpm) 90 {beats}/min [facility] MDT_PROG_TACHY_ZONE_DE TECTIONS_STATUS ENABLED [facility] Model [id number] Viva XT DONOR SUPPORT TECHNICIAN-D [facility] Model 4196 Attain Ability MRI SureScan [facility] Model 5076 CapSureFix [facility] Model 0144 [employer] End[employer] Rx [facility] Pacing Mode DDDR [facility] Serial Number [id number] [facility] Serial Number [id number] [facility] Serial Number [id number] [facility] Serial Number [id number] [facility] Test Charge [employer] 18 J [facility] Test Charge Time 5.145 [facility] Therapy Status (Vent) Enabled [facility] Thresh RA Capture Amplitude (volts) 0.625 V [facility] Thresh RA Capture Duration (ms) 0.4 ms [facility] Thresh RA Sensing Amplitude (mvolts) 2.875 mV [facility] Thresh RV Capture Amplitude (VOLTS) 1.375 V [facility] Thresh RV Capture Duration (MS) 0.4 ms [facility] Thresh RV Sensing Amplitude (MVOLTS) 11 mV [facility] Tracking Rate (bpm) 90 {beats}/min [facility] VF Zone Detection Interval 450 ms [facility] VF Zone Therapy Configuration 2 ATP(s) + 0 Shock(s) [facility] AV Delay Adaptive Paced Minimum (ms) 350 ms [facility] AV Delay Adaptive Rate Maximum (bpm) 90 {beats}/min [facility] AV Delay Adaptive Rate Minimum (bpm) 75 {beats}/min [facility] AV Delay Adaptive Sensed Minimum (ms) 250 ms [facility] AV Delay Adaptive Status ENABLED [facility] AV Delay Paced (ms) 100 ms [facility] AV Delay Sensed (ms) 70 ms [facility] Battery Voltage 2.78 V [facility] Csott RA Pacing Amplitude (volts) 2 V [facility] Scott RA Pacing Polarity BI [facility] Scott RA Pacing Pulse Width (ms) 0.4 ms [facility] Scott RA Sensing Amplitude (mvolts) 0.3 mV [facility] Scott RA Sensing Blanking Period (ms) 150 ms [facility] Scott RA Sensing Polarity BI [facility] Scott RA Sensing Refractory Period (ms) 250 ms [facility] Scott RV Pacing Amplitude (volts) 2.75 V [facility] Scott RV Pacing Polarity BI [facility] Scott RV Pacing Pulse Width (ms) 0.4 ms [facility] Scott RV Sensing Amplitude (mvolts) 0.3 mV [facility] Scott RV Sensing Blanking Period (ms) 200 ms [facility] Scott RV Sensing Polarity BI [facility] Detection Configuration (Vent) 2 - Zone [facility] FastVT_Detection Interval 450 ms [facility] FastVT_Therapy Configuration 2 ATP(s) + 0 Shock(s) [facility] ICD AFIB DetectionStatus DISABLED [facility] ICD ATAF DetectionInterval ms 450 ms [facility] ICD ATAF DetectionStatus ENABLED [facility] ICD ATAF TherapyConfiguration 2 ATP(s) + 0 Shock(s) [facility] ICD FastVT DetectionStatus ENABLED [facility] ICD-ADLRATE_BPM 85 {beats}/min [facility] ICD-AMS EPISODES 133 {beats}/min [facility] ICD-ATP Episodes (Vent) 0 [facility] ICD-ATRIALFIBRILLATION 0 Cl [facility] ICD-Counters Cleared Date 09/23/2016 [facility] ICD-Device Mfg MDT [facility] ICD-LEADIMPEDANCEATRIA L 361 ohm [facility] ICD-Percent Pacing (Atrial) 98.5 % [facility] ICD-Percent Pacing (Vent) 99.69 % [facility] ICD-PMT Intervention ENABLED [facility] ICD-PVC Intervention ENABLED [facility] ICD-Rate Modulation Acceleration Reaction 30 s [facility] ICD-Rate Modulation Deceleration Exercise [facility] ICD-Rate Modulation Centre 3 [facility] ICD-Rate Modulation Threshold MediumHigh [facility] ICD-Shocks Aborted (Vent) 0 [facility] [id number] 0 [facility] ICD-SHOCKSABORTED 0 [facility] ICD-SHOCKSDELIVEREDVEN TRICULAR 0 [facility] ICD-Ventricular Fibrillation 0 [facility] Implant Date 07/03/2005 [facility] Implant Date 11/30/2002 [facility] Lead Impedance (LV) 4047 ohm [facility] Lead Impedance (RV) 760 ohm [facility] Lead Impedance High Voltage 62 ohm [facility] Lead1 Mfg MDT [facility] Lead2 Mfg MDT [facility] Lead3 Mfg GDT [facility] Location LV [facility] Location RA [facility] Location RV [facility] Lower Rate (bpm) 80 {beats}/min [facility] LV PACING % 0 % [facility] Max Sensor Rate (bpm) 90 {beats}/min [facility] MDT_PROG_TACHY_ZONE_DE TECTIONS_STATUS ENABLED [facility] Model [id number] Viva XT DONOR SUPPORT TECHNICIAN-D [facility] Model 4196 Attain Ability MRI SureScan [facility] Model 5076 CapSureFix Novus [facility] Model 0144 Endotak Endurance Rx [facility] Pacing Mode DDDR [facility] Serial Number [id number] [facility] Serial Number [id number] [facility] Serial Number [id number] [facility] Serial Number [id number] [facility] Test Charge Energy 18 J [facility] Test Charge Time 5.145 [facility] Therapy Status (Vent) Enabled [facility] Thresh RA Capture Amplitude (volts) 0.625 V [facility] Thresh RA Capture Duration (ms) 0.4 ms [facility] Thresh RA Sensing Amplitude (mvolts) 2.875 mV [facility] Thresh RV Capture Amplitude (VOLTS) 1.375 V [facility] Thresh RV Capture Duration (MS) 0.4 ms [facility] Thresh RV Sensing Amplitude (MVOLTS) 13.25 mV [facility] Tracking Rate (bpm) 90 {beats}/min C [facility] VF Zone Detection Interval 450 ms [facility] VF Zone Therapy Configuration 2 ATP(s) + 0 Shock(s) [facility] No Panel Informationon 03-05 BLANK _ [facility] ICD-ATRIALTACHYCARDIA 0 [facility] ICD-Fast Ventricular Tachycardia 0 [facility] Implant Date 09/23/2016 [facility] BLANK _ [facility] ICD-ATRIALTACHYCARDIA 0 [facility] ICD-Fast Ventricular Tachycardia 0 [facility] Implant Date 09/23/2016 [facility] XR CSPINE 2_3 VIEWSon 2022 XR [...] TENZIN ALEJO Date: 2023-01-27 10:58 Normal [facility] PROTIMEon 01-03-2023 INR Coag (PPP) [Relative time] 0.98 {INR} Normal [facility] Comment on above: Performed By: #### P T ####[facility] [id number] [place], [place] [address]CeDr. Melissa Helm INR GUIDELINES SEE BELOW Normal [facility] Comment on above: Result Comment: POOJA RED INR: 2.0 - 3.0 CONDITIONS NOT LISTED BELOW 2.5 - 3.5 FOR PROSTHETIC HEART VALVE REPLACEMENT 2.5 - 3.5 RECURRENT THROMBOSIS Performed By: #### P T ####[facility] [id number] [place], [place] [address]Iq. Melissa Helm PT Coag (PPP) [Time] 10.4 s Normal 9.0-11.6 [facility] Comment on above: Performed By: #### P T ####[facility] [id number] [place], [place] [address]Vg. Melissa Helm XR SHOULDER RT 2V or [...] FAUSTO GONCALVES Date: 2023-01-03 13:54 Normal [facility] ICD REMOTE CHECKon 3 AV Delay Adaptive Paced Minimum (ms) 350 ms [facility] AV Delay Adaptive Rate Maximum (bpm) 90 {beats}/min [facility] AV Delay Adaptive Rate Minimum (bpm) 75 {beats}/min [facility] AV Delay Adaptive Sensed Minimum (ms) 250 ms [facility] AV Delay Adaptive Status ENABLED [facility] AV Delay Paced (ms) 100 ms [facility] AV Delay Sensed (ms) 70 ms [facility] Battery Voltage 2.81 V [facility] Scott RA Pacing Amplitude (volts) 2 V [facility] Scott RA Pacing Polarity BI [facility] Scott RA Pacing Pulse Width (ms) 0.4 ms [facility] Scott RA Sensing Amplitude (mvolts) 0.3 mV [facility] Scott RA Sensing Blanking Period (ms) 150 ms [facility] Scott RA Sensing Polarity BI [facility] Scott RA Sensing Refractory Period (ms) 250 ms [facility] Scott RV Pacing Amplitude (volts) 2.75 V [facility] Scott RV Pacing Polarity BI [facility] Scott RV Pacing Pulse Width (ms) 0.4 ms [facility] Scott RV Sensing Amplitude (mvolts) 0.3 mV [facility] Scott RV Sensing Blanking Period (ms) 200 ms [facility] Scott RV Sensing Polarity BI [facility] Detection Configuration (Vent) 2 - Zone [facility] FastVT_Detection Interval 450 ms [facility] FastVT_Therapy Configuration 2 ATP(s) + 0 Shock(s) [facility] ICD AFIB DetectionStatus DISABLED [facility] ICD ATAF DetectionInterval ms 450 ms [facility] ICD ATAF DetectionStatus ENABLED [facility] ICD ATAF TherapyConfiguration 2 ATP(s) + 0 Shock(s) [facility] ICD FastVT DetectionStatus ENABLED [facility] ICD-ADLRATE_BPM 85 {beats}/min [facility] ICD-AMS EPISODES 133 {beats}/min [facility] ICD-ATP Episodes (Vent) 0 [facility] ICD-ATRIALFIBRILLATION 0 Cl [facility] ICD-Counters Cleared Date 09/23/2016 [facility] ICD-Device Sri GROSS [facility] ICD-LEADIMPEDANCEATRIA L 342 ohm [facility] ICD-Percent Pacing (Atrial) 99.28 % [facility] ICD-Percent Pacing (Vent) 99.57 % [facility] ICD-PMT Intervention ENABLED [facility] ICD-PVC Intervention ENABLED [facility] ICD-Rate Modulation Acceleration Reaction 30 s [facility] ICD-Rate Modulation Deceleration Exercise [facility] ICD-Rate Modulation Centre 3 [facility] ICD-Rate Modulation Threshold MediumHigh [facility] ICD-Shocks Aborted (Vent) 0 [facility] [id number] 0 [facility] ICD-SHOCKSABORTED 0 [facility] ICD-SHOCKSDELIVEREDVEN TRICULAR 0 [facility] ICD-Ventricular Fibrillation 0 [facility] Implant Date 07/03/2005 [facility] Implant Date 11/30/2002 [facility] Lead Impedance (LV) 4047 ohm [facility] Lead Impedance (RV) 722 ohm [facility] Lead Impedance High Voltage 64 ohm [facility] Lead1 Mfg MDT [facility] Lead2 Mfg MDT [facility] Lead3 Mfg GDT [facility] Location LV [facility] Location RA [facility] Location RV [facility] Lower Rate (bpm) 80 {beats}/min [facility] LV PACING % 0 % [facility] Max Sensor Rate (bpm) 90 {beats}/min [facility] RENATO_PROG_TACHY_ZONE_DE TECTIONS_STATUS ENABLED [facility] Model [id number] Viva XT DONOR SUPPORT TECHNICIAN-D [facility] Model 4196 Attain Ability MRI SureScan [facility] Model 5076 CapSureFix [facility] Model 0144 [employer]otak Endurance Rx [facility] Pacing Mode DDDR [facility] Serial Number [id number] [facility] Serial Number [id number] [facility] Serial Number [id number] [facility] Serial Number [id number] [facility] Test Charge Energy 18 J [facility] Test Charge Time 4.834 [facility] Therapy Status (Vent) Enabled [facility] Thresh RA Capture Amplitude (volts) 0.625 V [facility] Thresh RA Capture Duration (ms) 0.4 ms [facility] Thresh RA Sensing Amplitude (mvolts) 2 mV [facility] Thresh RV Capture Amplitude (VOLTS) 1.375 V [facility] Thresh RV Capture Duration (MS) 0.4 ms [facility] Thresh RV Sensing Amplitude (MVOLTS) 7.5 mV [facility] Tracking Rate (bpm) 90 {beats}/min C [facility] VF Zone Detection Interval 450 ms [facility] VF Zone Therapy Configuration 2 ATP(s) + 0 Shock(s) [facility] No Panel Informationon 11-28 BLANK _ [facility] ICD-ATRIALTACHYCARDIA 0 [facility] ICD-Fast Ventricular Tachycardia 0 [facility] Implant Date 09/23/2016 [facility] NM BONE IMAGE 3 PHASEon 10-01 [...] by: JC BRAVO Date: 2022-10-26 13:[address] [facility] TRANSFERRINon 02-08-2023 Transferrin [Mass/Vol] 354 mg/dL Normal 192-364 Th e [facility] Comment on above: Performed By: #### T RANSFR #### [facility] [address] [place] [address] Dr. Melissa Helm CBC AUTO DIFFon 10-06-2022 BASO # 0.1 103/ul Normal 0.0-0.1 [facility] Comment on above: Performed By: #### C BC #### [facility] [address] [place] [address] Dr. Melissa Helm Basophils/100 WBC (Bld) 0.9 % Normal 0.2-2.0 [facility] Comment on above: Performed By: #### C BC #### [facility] [address] [place] [address] Dr. Melissa Helm EO # 0.4 103/ul Normal 0.0-0.7 [facility] Comment on above: Performed By: #### C BC #### [facility] [address] [place] [address] Dr. Melissa Helm Eosinophils/100 WBC (Bld) 2.7 % Normal 0.9-7.0 [facility] Comment on above: Performed By: #### C BC #### [facility] [address] [place] [address] Dr. Melissa Helm Erythrocyte distribution width (RBC) [Ratio] 20.8 % Critically high 11.0-15.0 [facility] Comment on above: Performed By: #### C BC #### [facility] [address] [place] [address] Dr. Melissa Helm Hematocrit (Bld) [Volume fraction] 38.3 % Normal 36.0-48.0 [facility] Comment on above: Performed By: #### C BC #### [facility] [address] [place] [address] Dr. Melissa Helm Hemoglobin (Bld) [Mass/Vol] 10.8 g/dL Critically low 12.0-16.0 [facility] Comment on above: Performed By: #### C BC #### [facility] [address] [place] [address] Dr. Melissa Helm IG # 0.07 10e3/ul Critically high 0.00-0.03 [facility] Comment on above: Performed By: #### C BC #### [facility] [address] [place] [address] Dr. Melissa Helm IG % 0.5 % Normal 0.0-0.5 [facility] Comment on above: Performed By: #### C BC #### [facility] [address] [place] [address] Dr. Melissa Helm LYMPH # 2.2 103/ul Normal 1.2-3.8 [facility] Comment on above: Performed By: #### C BC #### [facility] [address] [place] [address] Dr. Melissa Helm Lymphocytes/100 WBC (Bld) 17.5 % Critically low 20.5-60.0 [facility] Comment on above: Performed By: #### C BC #### [facility] [address] [place] [address] Dr. Melissa Helm MANUAL DIFF REQ NO Normal [facility] Comment on above: Performed By: #### C BC #### [facility] [address] [place] [address] Dr. Melissa Helm MCH (RBC) [Entitic mass] 20.6 pg Critically low 26.7-34.0 [facility] Comment on above: Performed By: #### C BC #### [facility] [address] [place] [address] Dr. Melissa Helm MCHC (RBC) [Mass/Vol] 28.2 g/dL Critically low 29.9-35.2 [facility] Comment on above: Performed By: #### C BC #### [facility] [address] [place] [address] Dr. Melissa Helm MCV (RBC) [Entitic vol] 73.0 fL Critically low 81.0-99.0 [facility] Comment on above: Performed By: #### C BC #### [facility] [address] [place] [address] Dr. Melissa Helm MONO # 1.2 103/ul Critically high 0.3-0.8 [facility] Comment on above: Performed By: #### C BC #### [facility] [address] [place] [address] Dr. Melissa Helm Monocytes/100 WBC (Bld) 9.0 % Normal 1.7-12.0 [facility] Comment on above: Performed By: #### C BC #### [facility] [address] [address] [address] Melissa Helm NEUT # 8.9 103/ul Critically high 1.4-6.5 [facility] Comment on above: Performed By: #### C BC #### [facility] [address] [place] [address] Dr. Melissa Helm Neutrophils/100 WBC (Bld) 69.4 % Normal 43.0-75.0 [facility] Comment on above: Performed By: #### C BC #### [facility] [address] [place] [address] Dr. Melissa Helm PLT 184 103/ul Normal 150-450 [facility] Comment on above: Performed By: #### C BC #### [facility] [address] [place] [address] Dr. Melissa Helm RBC 5.25 106/ul Normal 4.20-5.40 [facility] Comment on above: Performed By: #### C BC #### [facility] [address] [place] [address] Dr. Melissa Helm WBC 12.8 103/ul Critically high 4.0-11.0 [facility] Comment on above: Performed By: #### C BC #### [facility] [address] [place] [address] Dr. Melissa Helm FERRITINon 10-06-2022 Ferritin [Mass/Vol] 33.0 ng/mL Normal 8.0-252.0 [facility] Comment on above: Performed By: #### F ERR, FETIBC #### [facility] [address] [place] [address] Dr. Melissa Helm IRON AND TIBCon 10-06-2022 % SATURATION 20.3 % Normal [facility] Comment on above: Performed By: #### F ERR, FETIBC #### [facility] [id number] Melissa Helm Iron [Mass/Vol] 89.0 ug/dL Normal 50.0-170.0 [facility] Comment on above: Performed By: #### F ERR, FETIBC #### [facility] [id number] Melissa Helm TIBC DIRECT 438.0 ug/dL Normal 250.0-450. 0 [facility] Comment on above: Performed By: #### F ERR, FETIBC #### [facility] [address] [address] [address] 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 TECHNICIAN-D [Z95.810] 07/23/2020 Primary hypertension [I10] Nicotine use disorder [F17.200] Exercise-induced asthma [J45.990] Anemia [D64.9] 10/29/2011 07/23/2020 H/o GERD [K21.9] 07/23/2020 Migraines [G43.909] H/o Depression/Anxiety/Sleep disturbance [F32.* Preop testing [Z01.818] 07/08/2012 07/23/2020 SUMMARY [V999.95] 07/11/2012 07/23/2020 Pulmonary hypertension, moderate to severe (HCC*2012 Other acute postoperative pain [G89.18] 07/13/2012 07/16/2012 Pulmonary insuff [[id number]] 07/13/2012 07/23/2020 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 [...] NADIR BRANDT on 09/11/22 Normal [facility] ICD REMOTE CHECKon 2 AV Delay Adaptive Paced Minimum (ms) 350 ms [facility] AV Delay Adaptive Rate Maximum (bpm) 90 {beats}/min [facility]ay Adaptive Rate Minimum (bpm) 75 {beats}/min [facility] AV Delay Adaptive Sensed Minimum (ms) 250 ms [facility] AV Delay Adaptive Status ENABLED [facility] AV Delay Paced (ms) 100 ms [facility] AV Delay Sensed (ms) 70 ms [facility] Battery Voltage 2.85 V [facility] Scott RA Pacing Amplitude (volts) 2 V [facility] Scott RA Pacing Polarity BI [facility] Scott RA Pacing Pulse Width (ms) 0.4 ms [facility] Scott RA Sensing Amplitude (mvolts) 0.3 mV [facility] Scott RA Sensing Blanking Period (ms) 150 ms [facility] Scott RA Sensing Polarity BI [facility] Scott RA Sensing Refractory Period (ms) 250 ms [facility] Scott RV Pacing Amplitude (volts) 2.5 V [facility] Scott RV Pacing Polarity BI [facility] Scott RV Pacing Pulse Width (ms) 0.4 ms [facility] Scott RV Sensing Amplitude (mvolts) 0.3 mV [facility] Scott RV Sensing Blanking Period (ms) 200 ms [facility] Scott RV Sensing Polarity BI [facility] Detection Configuration (Vent) 2 - Zone [facility] FastVT_Detection Interval 450 ms [facility] FastVT_Therapy Configuration 2 ATP(s) + 0 Shock(s) [facility] ICD AFIB DetectionStatus DISABLED [facility] ICD ATAF DetectionInterval ms 450 ms [facility] ICD ATAF DetectionStatus ENABLED [facility] ICD ATAF TherapyConfiguration 2 ATP(s) + 0 Shock(s) [facility] ICD FastVT DetectionStatus ENABLED [facility] ICD-ADLRATE_BPM 85 {beats}/min [facility] ICD-AMS EPISODES 133 {beats}/min [facility] ICD-ATP Episodes (Vent) 0 [facility] ICD-ATRIALFIBRILLATION 4 Cl [facility] ICD-ATRIALTACHYCARDIA 4 [facility] ICD-Counters Cleared Date 09/23/2016 [facility] ICD-Device Mfg MDT [facility] ICD-LEADIMPEDANCEATRIA L 361 ohm [facility] ICD-Percent Pacing (Atrial) 79.65 % [facility] ICD-Percent Pacing (Vent) 98.96 % [facility] ICD-PMT Intervention ENABLED [facility] ICD-PVC Intervention ENABLED [facility] ICD-Rate Modulation Acceleration Reaction 30 s [facility] ICD-Rate Modulation Deceleration Exercise [facility] ICD-Rate Modulation Centre 3 [facility] ICD-Rate Modulation Threshold MediumHigh [facility] ICD-Shocks Aborted (Vent) 0 [facility] [id number] 0 [facility] ICD-SHOCKSABORTED 0 [facility] ICD-SHOCKSDELIVEREDVEN TRICULAR 0 [facility] ICD-Ventricular Fibrillation 0 [facility] Implant Date 07/03/2005 [facility] Implant Date 11/30/2002 [facility] Lead Impedance (LV) 4047 ohm [facility] Lead Impedance (RV) 722 ohm [facility] Lead Impedance High Voltage 63 ohm [facility] Lead1 Mfg MDT [facility] Lead2 Mfg MDT [facility] Lead3 Mfg GDT [facility] Location LV [facility] Location RA [facility] Location RV [facility] Lower Rate (bpm) 80 {beats}/min [facility] LV PACING % 0 % [facility] Max Sensor Rate (bpm) 90 {beats}/min [facility] MDT_PROG_TACHY_ZONE_DE TECTIONS_STATUS ENABLED [facility] Model [id number] Viva XT DONOR SUPPORT TECHNICIAN-D [facility] Model 4196 Attain Ability MRI SureScan [facility] Model 5076 CapSureFix Novus [facility] Model 0144 [employer] Endurance Rx [facility] Pacing Mode DDDR [facility] Serial Number [id number] [facility] Serial Number [id number] [facility] Serial Number [id number] [facility] Serial Number [id number] [facility] Test Charge Energy 18 J [facility] Test Charge Time 4.464 [facility] Therapy Status (Vent) Enabled [facility] Thresh RA Capture Amplitude (volts) 0.625 V [facility] Thresh RA Capture Duration (ms) 0.4 ms [facility] Thresh RA Sensing Amplitude (mvolts) 2.375 mV [facility] Thresh RV Capture Amplitude (VOLTS) 1.25 V [facility] Thresh RV Capture Duration (MS) 0.4 ms [facility] Thresh RV Sensing Amplitude (MVOLTS) 12 mV [facility] Tracking Rate (bpm) 90 {beats}/min [facility] VF Zone Detection Interval 450 ms [facility] VF Zone Therapy Configuration 2 ATP(s) + 0 Shock(s) [facility] No Panel Informationon 08-25 BLANK _ [facility] ICD-ATRIALTACHYCARDIA 0 [facility] ICD-Fast Ventricular Tachycardia 0 [facility] Implant Date 09/23/2016 [facility] ICD REMOTE CHECKon 2 AV Delay Adaptive Paced Minimum (ms) 350 ms [facility] AV Delay Adaptive Rate Maximum (bpm) 90 {beats}/min [facility] AV Delay Adaptive Rate Minimum (bpm) 75 {beats}/min [facility] AV Delay Adaptive Sensed Minimum (ms) 250 ms [facility] AV Delay Adaptive Status ENABLED [facility] AV Delay Paced (ms) 100 ms [facility] AV Delay Sensed (ms) 70 ms [facility] Battery Voltage 2.86 V [facility] Scott RA Pacing Amplitude (volts) 2 V [facility] Scott RA Pacing Polarity BI [facility] Scott RA Pacing Pulse Width (ms) 0.4 ms [facility] Scott RA Sensing Amplitude (mvolts) 0.3 mV [facility] Scott RA Sensing Blanking Period (ms) 150 ms [facility] Scott RA Sensing Polarity BI [facility] Scott RA Sensing Refractory Period (ms) 250 ms [facility] Scott RV Pacing Amplitude (volts) 3 V [facility] Scott RV Pacing Polarity BI [facility] Scott RV Pacing Pulse Width (ms) 0.4 ms [facility] Scott RV Sensing Amplitude (mvolts) 0.3 mV [facility] Scott RV Sensing Blanking Period (ms) 200 ms [facility] Scott RV Sensing Polarity BI [facility] Detection Configuration (Vent) 2 - Zone [facility] FastVT_Detection Interval 450 ms [facility] FastVT_Therapy Configuration 2 ATP(s) + 0 Shock(s) [facility] ICD AFIB DetectionStatus DISABLED [facility] ICD ATAF DetectionInterval ms 450 ms [facility] ICD ATAF DetectionStatus ENABLED [facility] ICD ATAF TherapyConfiguration 2 ATP(s) + 0 Shock(s) [facility] ICD FastVT DetectionStatus ENABLED [facility] ICD-ADLRATE_BPM 85 {beats}/min [facility] ICD-AMS EPISODES 133 {beats}/min [facility] ICD-ATP Episodes (Vent) 0 [facility] ICD-ATRIALFIBRILLATION 1 Cl [facility] ICD-ATRIALTACHYCARDIA 1 [facility] ICD-Counters Cleared Date 09/23/2016 [facility] ICD-Device Mfg MDT [facility] ICD-LEADIMPEDANCEATRIA L 361 ohm [facility] ICD-Percent Pacing (Atrial) 84.32 % [facility] ICD-Percent Pacing (Vent) 99.05 % [facility] ICD-PMT Intervention ENABLED [facility] ICD-PVC Intervention ENABLED [facility] ICD-Rate Modulation Acceleration Reaction 30 s [facility] ICD-Rate Modulation Deceleration Exercise [facility] ICD-Rate Modulation Centre 3 [facility] ICD-Rate Modulation Threshold MediumHigh [facility] ICD-Shocks Aborted (Vent) 0 [facility] [id number] 0 [facility] ICD-SHOCKSABORTED 0 [facility] ICD-SHOCKSDELIVEREDVEN TRICULAR 0 [facility] ICD-Ventricular Fibrillation 0 [facility] Implant Date 07/03/2005 [facility] Implant Date 11/30/2002 [facility] Lead Impedance (LV) 4047 ohm [facility] Lead Impedance (RV) 722 ohm [facility] Lead Impedance High Voltage 63 ohm [facility] Lead1 Mfg MDT [facility] Lead2 Mfg MDT [facility] Lead3 Mfg GDT [facility] Location LV [facility] Location RA [facility] Location RV [facility] Lower Rate (bpm) 80 {beats}/min [facility] LV PACING % 0 % [facility] Max Sensor Rate (bpm) 90 {beats}/min [facility] MDT_PROG_TACHY_ZONE_DE TECTIONS_STATUS ENABLED [facility] Model [id number] Viva XT DONOR SUPPORT TECHNICIAN-D [facility] Model 4196 Attain Ability MRI SureScan [facility] Model 5076 CapSureFix Novus [facility] Model 0144 Endotak Endurance Rx [facility] Pacing Mode DDDR [facility] Serial Number [id number] [facility] Serial Number [id number] [facility] Serial Number [id number] [facility] Serial Number [id number] [facility] Test Charge Energy 18 J [facility] Test Charge Time 4.464 [facility] Therapy Status (Vent) Enabled [facility] Thresh RA Capture Amplitude (volts) 0.625 V [facility] Thresh RA Capture Duration (ms) 0.4 ms [facility] Thresh RA Sensing Amplitude (mvolts) 3.125 mV [facility] Thresh RV Capture Amplitude (VOLTS) 1.5 V [facility] Thresh RV Capture Duration (MS) 0.4 ms [facility] Thresh RV Sensing Amplitude (MVOLTS) 10.75 mV [facility] Tracking Rate (bpm) 90 {beats}/min C [facility] VF Zone Detection Interval 450 ms [facility] VF Zone Therapy Configuration 2 ATP(s) + 0 Shock(s) [facility] No Panel Informationon 07-01 BLANK _ [facility] ICD-ATRIALTACHYCARDIA 0 [facility] ICD-Fast Ventricular Tachycardia 0 [facility] Implant Date 09/23/2016 [facility] ICD REMOTE CHECKon 2 AV Delay Adaptive Paced Minimum (ms) 350 ms [facility] AV Delay Adaptive Rate Maximum (bpm) 90 {beats}/min [facility] AV Delay Adaptive Rate Minimum (bpm) 75 {beats}/min [facility] AV Delay Adaptive Sensed Minimum (ms) 250 ms [facility] AV Delay Adaptive Status ENABLED [facility] AV Delay Paced (ms) 100 ms [facility] AV Delay Sensed (ms) 70 ms [facility] Battery Voltage 2.85 V [facility] Scott LV Pacing Polarity BI [facility] Scott RA Pacing Amplitude (volts) 2 V [facility] Scott RA Pacing Polarity BI [facility] Scott RA Pacing Pulse Width (ms) 0.4 ms [facility] Scott RA Sensing Amplitude (mvolts) 0.3 mV [facility] Scott RA Sensing Blanking Period (ms) 150 ms [facility] Scott RA Sensing Polarity BI [facility] Scott RA Sensing Refractory Period (ms) 250 ms [facility] Scott RV Pacing Amplitude (volts) 2.75 V [facility] Scott RV Pacing Polarity BI [facility] Scott RV Pacing Pulse Width (ms) 0.4 ms [facility] Scott RV Sensing Amplitude (mvolts) 0.3 mV [facility] Scott RV Sensing Blanking Period (ms) 200 ms [facility] Scott RV Sensing Polarity BI [facility] Detection Configuration (Vent) 2 - Zone [facility] FastVT_Detection Interval 450 ms [facility] FastVT_Therapy Configuration 2 ATP(s) + 0 Shock(s) [facility] ICD AFIB DetectionStatus DISABLED [facility] ICD ATAF DetectionInterval ms 450 ms [facility] ICD ATAF DetectionStatus ENABLED [facility] ICD ATAF TherapyConfiguration 2 ATP(s) + 0 Shock(s) [facility] ICD FastVT DetectionStatus ENABLED [facility] ICD-ADLRATE_BPM 85 {beats}/min [facility] ICD-AMS EPISODES 133 {beats}/min [facility] ICD-ATP Episodes (Vent) 0 [facility] ICD-ATRIALFIBRILLATION 117 Cl [facility] ICD-ATRIALTACHYCARDIA 117 [facility] ICD-Counters Cleared Date 09/23/2016 [facility] ICD-Device Mfg MDT [facility] ICD-LEADIMPEDANCEATRIA L 342 ohm [facility] ICD-Percent Pacing (Atrial) 67.54 % [facility] ICD-Percent Pacing (Vent) 96.8 % [facility] ICD-PMT Intervention ENABLED [facility] ICD-PVC Intervention ENABLED [facility] ICD-Rate Modulation Acceleration Reaction 30 s [facility] ICD-Rate Modulation Deceleration Exercise [facility] ICD-Rate Modulation Centre 3 [facility] ICD-Rate Modulation Threshold MediumHigh [facility] ICD-Shocks Aborted (Vent) 0 [facility] [id number] 0 [facility] ICD-SHOCKSABORTED 0 [facility] ICD-SHOCKSDELIVEREDVEN TRICULAR 0 [facility] ICD-Ventricular Fibrillation 0 [facility] Implant Date 07/03/2005 [facility] Implant Date 11/30/2002 [facility] Lead Impedance (LV) 4047 ohm [facility] Lead Impedance (RV) 703 ohm [facility] Lead Impedance High Voltage 60 ohm [facility] Lead1 Mfg MDT [facility] Lead2 Mfg MDT [facility] Lead3 Mfg GDT [facility] Location LV [facility] Location RA [facility] Location RV [facility] Lower Rate (bpm) 80 {beats}/min [facility] LV PACING % 0 % [facility] Max Sensor Rate (bpm) 90 {beats}/min [facility] MDT_PROG_TACHY_ZONE_DE TECTIONS_STATUS ENABLED [facility] Model [id number] Viva XT DONOR SUPPORT TECHNICIAN-D [facility] Model 4196 Attain Ability MRI SureScan [facility] Model 5076 CapSureFix [facility] Model 0144 [employer]otak Endurance Rx [facility] Pacing Mode DDDR [facility] Serial Number [id number] [facility] Serial Number [id number] [facility] Serial Number [id number] [facility] Serial Number [id number] [facility] Test Charge Energy 18 J [facility] Test Charge Time 4.464 [facility] Therapy Status (Vent) Enabled [facility] Thresh RA Capture Amplitude (volts) 0.625 V [facility] Thresh RA Capture Duration (ms) 0.4 ms [facility] Thresh RA Sensing Amplitude (mvolts) 2 mV [facility] Thresh RV Capture Amplitude (VOLTS) 1.375 V [facility] Thresh RV Capture Duration (MS) 0.4 ms [facility] Thresh RV Sensing Amplitude (MVOLTS) 10.375 mV [facility] Tracking Rate (bpm) 90 {beats}/min C [facility] VF Zone Detection Interval 450 ms [facility] VF Zone Therapy Configuration 2 ATP(s) + 0 Shock(s) [facility] AV Delay Adaptive Paced Minimum (ms) 350 ms [facility] AV Delay Adaptive Rate Maximum (bpm) 90 {beats}/min [facility] AV Delay Adaptive Rate Minimum (bpm) 75 {beats}/min [facility] AV Delay Adaptive Sensed Minimum (ms) 250 ms [facility] AV Delay Adaptive Status ENABLED [facility] AV Delay Paced (ms) 100 ms [facility] AV Delay Sensed (ms) 70 ms [facility] Battery Voltage 2.85 V [facility] Scott LV Pacing Polarity BI [facility] Scott RA Pacing Amplitude (volts) 2 V [facility] Scott RA Pacing Polarity BI [facility] Scott RA Pacing Pulse Width (ms) 0.4 ms [facility] Scott RA Sensing Amplitude (mvolts) 0.3 mV [facility] Scott RA Sensing Blanking Period (ms) 150 ms [facility] Scott RA Sensing Polarity BI [facility] Scott RA Sensing Refractory Period (ms) 250 ms [facility] Scott RV Pacing Amplitude (volts) 2.75 V [facility] Scott RV Pacing Polarity BI [facility] Scott RV Pacing Pulse Width (ms) 0.4 ms [facility] Scott RV Sensing Amplitude (mvolts) 0.3 mV [facility] Scott RV Sensing Blanking Period (ms) 200 ms [facility] Scott RV Sensing Polarity BI [facility] Detection Configuration (Vent) 2 - Zone [facility] FastVT_Detection Interval 450 ms [facility] FastVT_Therapy Configuration 2 ATP(s) + 0 Shock(s) [facility] ICD AFIB DetectionStatus DISABLED [facility] ICD ATAF DetectionInterval ms 450 ms [facility] ICD ATAF DetectionStatus ENABLED [facility] ICD ATAF TherapyConfiguration 2 ATP(s) + 0 Shock(s) [facility] ICD FastVT DetectionStatus ENABLED [facility] ICD-ADLRATE_BPM 85 {beats}/min [facility] ICD-AMS EPISODES 133 {beats}/min [facility] ICD-ATP Episodes (Vent) 0 [facility] ICD-ATRIALFIBRILLATION 117 Cl [facility] ICD-ATRIALTACHYCARDIA 117 [facility] ICD-Counters Cleared Date 09/23/2016 [facility] ICD-Device Mfg MDT [facility] ICD-LEADIMPEDANCEATRIA L 342 ohm [facility] ICD-Percent Pacing (Atrial) 67.54 % [facility] ICD-Percent Pacing (Vent) 96.8 % [facility] ICD-PMT Intervention ENABLED [facility] ICD-PVC Intervention ENABLED [facility] ICD-Rate Modulation Acceleration Reaction 30 s [facility] ICD-Rate Modulation Deceleration Exercise [facility] ICD-Rate Modulation Centre 3 [facility] ICD-Rate Modulation Threshold MediumHigh [facility] ICD-Shocks Aborted (Vent) 0 [facility] [id number] 0 [facility] ICD-SHOCKSABORTED 0 [facility] ICD-SHOCKSDELIVEREDVEN TRICULAR 0 [facility] ICD-Ventricular Fibrillation 0 [facility] Implant Date 07/03/2005 [facility] Implant Date 11/30/2002 [facility] Lead Impedance (LV) 4047 ohm [facility] Lead Impedance (RV) 703 ohm [facility] Lead Impedance High Voltage 60 ohm [facility] Lead1 Mfg MDT [facility] Lead2 Mfg MDT [facility] Lead3 Mfg GDT [facility] Location LV [facility] Location RA [facility] Location RV [facility] Lower Rate (bpm) 80 {beats}/min [facility] LV PACING % 0 % [facility] Max Sensor Rate (bpm) 90 {beats}/min [facility] T_PROG_TACHY_ZONE_DE TECTIONS_STATUS ENABLED [facility] Model [id number] Viva XT DONOR SUPPORT TECHNICIAN-D [facility] Model 4196 Attain Ability MRI SureScan [facility] Model 5076 CapSureFix [facility] Model 0144 [employer]otak Endurance Rx [facility] Pacing Mode DDDR [facility] Serial Number [id number] [facility] Serial Number [id number] [facility] Serial Number [id number] [facility] Serial Number [id number] [facility] Test Charge Energy 18 J [facility] Test Charge Time 4.464 [facility] Therapy Status (Vent) Enabled [facility] Thresh RA Capture Amplitude (volts) 0.625 V [facility] Thresh RA Capture Duration (ms) 0.4 ms [facility] Thresh RA Sensing Amplitude (mvolts) 2 mV [facility] Thresh RV Capture Amplitude (VOLTS) 1.375 V [facility] Thresh RV Capture Duration (MS) 0.4 ms [facility] Thresh RV Sensing Amplitude (MVOLTS) 10.375 mV [facility] Tracking Rate (bpm) 90 {beats}/min [facility] VF Zone Detection Interval 450 ms [facility] VF Zone Therapy Configuration 2 ATP(s) + 0 Shock(s) [facility] No Panel Informationon 06-01 BLANK _ [facility] ICD-ATRIALTACHYCARDIA 0 [facility] ICD-Fast Ventricular Tachycardia 0 [facility] Implant Date 09/23/2016 [facility] BLANK _ [facility] ICD-ATRIALTACHYCARDIA 0 [facility] ICD-Fast Ventricular Tachycardia 0 [facility] Implant Date 09/23/2016 [facility] Office Visit (Cardiology)on 04-24-2022 Follow-up visit [...] Pacemaker Interrogation; Status:Active - Retrospective Authorization; Requested for:[id number]; Health Maintenance Renew: Isosorbide Mononitrate ER 30 MG Oral Tablet Extended Release 24 Hour; TAKE 1 TABLET DAILY Avoid alcoholic beverages.; Status:Complete - Retrospective Authorization; Done: [id number] Avoid foods and beverages that contain caffeine.; Status:Complete - Retrospective Authorization; Done: [id number] Begin or continue regular aerobic exercise. Gradually work up to at least 3 sessions of 30 minutes of exercise a week.; Status:Complete - Retrospective Authorization; Done: [id number] Diets that are low in carbohydrates and high in protein are very popular for weight loss.; Status:Complete - Retrospective Authorization; Done: [id number] Eat a low fat and low cholesterol diet.; Status:Complete - Retrospective Authorization; Done: [id number] Please bring all medicines, vitamins, and herbal supplements with you when you come to the office.; Status:Complete - Retrospective Authorization; Done: [id number] Restrict the salt in your diet by avoiding highly salted foods.; Status:Complete - Retrospective Authorization; Done: [id number] Health Maintenance, Overweight with body mass index (BMI) of 29 to 29.9 in adult Losing just 5 to 10 pounds may lower your risk of health problems.; Status:Complete - Retrospective Authorization; Done: [id number] SocHx: Former smoker Tobacco Use Screening; Status:Complete; Done: [id number] Patient Instructions Follow up with Dr. Nunez in 6 months and 1 year with a device check. Drink plenty of water daily. ILatesha CMA, am scribing for and in the presence of, Dr. Margareth Nunez, MA, FACC, FACP, FHRS. No list or bottles for comparison, patient or family member to call with any updates [phone] The provider reviewed the following test(s) and [...] for details. She has remote history of [place] , cardiogenic shock, PCI circumflex and iABP, with persistent severe LV dysfunction. She later occluded her cicumflex. Years later, she had HF and severe MR and underwent mitral valve repair at [facility]. She had recurrent VT and atrial arrhythmias, and underwent several ablations and repeat percutaneous MVR at [facility]. After her MVR and ablation in July,, she had KALLI when then improved. She has had recurrent ICD shocks for atrial flutter. Personal review of ECG and cardiac data reviewed Outside records: EP study and successful ablation of atrial flutter. Multiple atrial tachycardias, possible left atrial tachycardia also noted and not targeted for ablation. December 2021. Discharge summary [facility] Oct 2021 Cardiology consult Oct 2021 ECG [...] heart failur (more content not included)... Normal [employer] Tobacco Screening.on 022 Fall risk assessment a) No falls within the last year [facility] KimberlyChico Hancock DO Work Phone: Tobacco use status [facility] a) [facility] Work Phone: [facility] Work Phone: XR LSPINE 2_3 [...] JC BRAVO Date: 2022-04-24 07:14 Normal [facility] TRANSFERRINon 04-17-2022 Transferrin [Mass/Vol] 418 mg/dL Critically high 192-364 [facility] Comment on above: Performed By: #### T RANSFR #### [facility] Laboratory [address], [place] [address] Dr. Melissa Helm CBC AUTO DIFFon 04-16-2022 BASO # 0.2 103/ul Critically high 0.0-0.1 [facility] Comment on above: Performed By: #### C BC ####[facility] [address] [place], [place] [address]QjDr. Melissa Helm Basophils/100 WBC (Bld) 1.2 % Normal 0.2-2.0 [facility] Comment on above: Performed By: #### C BC ####[facility] [address] [place] [id number]. Melissa Helm EO # 0.2 103/ul Normal 0.0-0.7 [facility] Comment on above: Performed By: #### C BC ####[facility] [address] [place] [id number]. Melissa Helm Eosinophils/100 WBC (Bld) 1.9 % Normal 0.9-7.0 [facility] Comment on above: Performed By: #### C BC ####[facility] [address] [place], [place] [address]Dr. Melissa Helm Erythrocyte distribution width (RBC) [Ratio] 22.6 % Critically high 11.0-15.0 [facility] Comment on above: Performed By: #### C BC ####[facility] [address] [place], [place] [address]Dr. Melissa Helm Hematocrit (Bld) [Volume fraction] 39.2 % Normal 36.0-48.0 [facility] Comment on above: Performed By: #### C BC ####[facility] [address] [place], [place] [address]Dr. Melissa Helm Hemoglobin (Bld) [Mass/Vol] 10.8 g/dL Critically low 12.0-16.0 [facility] Comment on above: Performed By: #### C BC ####[facility] [address] [place], [place] [address]Dr. Melissa Helm IG # 0.03 10e3/ul Normal 0.00-0.03 [facility] Comment on above: Performed By: #### C BC ####[facility] Y[address] [place], [place] [address]Dr. Melissa Helm IG % 0.2 % Normal 0.0-0.5 [facility] Comment on above: Performed By: #### C BC ####[facility] [address] [place], [place] [address]Dr. Melissa Helm LYMPH # 2.5 103/ul Normal 1.2-3.8 [facility] Comment on above: Performed By: #### C BC ####[facility] [address] [place] [address]Dr. Melissa Helm Lymphocytes/100 WBC (Bld) 19.8 % Critically low 20.5-60.0 [facility] Comment on above: Performed By: #### C BC ####[facility] [address] [place] [address]Dr. Melissa Helm MANUAL DIFF REQ NO Normal [facility] Comment on above: Performed By: #### C BC ####[facility] [address] [place], [place] [address]Dr. Melissa Helm MCH (RBC) [Entitic mass] 18.6 pg Critically low 26.7-34.0 [facility] Comment on above: Performed By: #### C BC ####[facility] [address] [place], [place] [address]Dr. Melissa Helm MCHC (RBC) [Mass/Vol] 27.6 g/dL Critically low 29.9-35.2 [facility] Comment on above: Performed By: #### C BC ####[facility] [address] [place], [place] [address]Dr. Melissa Helm MCV (RBC) [Entitic vol] 67.4 fL Critically low 81.0-99.0 [facility] Comment on above: Performed By: #### C BC ####[facility] [address] [place], [place] [address]Dr. Melissa Helm MONO # 1.2 103/ul Critically high 0.3-0.8 [facility] Comment on above: Performed By: #### C BC ####[facility] [address] [place], [place] [address]Dr. Melissa Helm Monocytes/100 WBC (Bld) 10.0 % Normal 1.7-12.0 [facility] Comment on above: Performed By: #### C BC ####[facility] [address] [place], [place] [address]Dr. Melissa Helm NEUT # 8.3 103/ul Critically high 1.4-6.5 [facility] Comment on above: Performed By: #### C BC ####[facility] [address] [place] [id number]. Melissa Helm Neutrophils/100 WBC (Bld) 66.9 % Normal 43.0-75.0 [facility] Comment on above: Performed By: #### C BC ####[facility] [address] [place] [id number]. Melissa Helm PLT 235 103/ul Normal 150-450 [facility] Comment on above: Performed By: #### C BC ####[facility] [address] [place] [id number]. Melissa Helm RBC 5.82 106/ul Critically high 4.20-5.40 [facility] Comment on above: Performed By: #### C BC ####[facility] [address] [place] [id number]. Melissa Helm WBC 12.4 103/ul Critically high 4.0-11.0 [facility] Comment on above: Performed By: #### C BC ####[facility] [address] [place] [id number]. Melissa Helm FERRITINon 04-16-2022 Ferritin [Mass/Vol] 27.0 ng/mL Normal 8.0-252.0 [facility] Comment on above: Performed By: #### F ETIBC, FERR ####[facility] [address] [place] [id number]. Melissa Helm FREE T3on 04-16-2022 FREE T3 3.09 pg/mlL Normal 2.18-3.98 [facility] Comment on above: Performed By: #### C MP, FT3, LIPID, TSH ####[facility] [address] [place] [id number]. Melissa Helm IRON AND TIBCon 04-16-2022 % SATURATION 5.4 % Normal [facility] Comment on above: Performed By: #### F ETIBC, FERR ####[facility] [address] [place], [place] [id number]. Melissa Helm Iron [Mass/Vol] 26.0 ug/dL Critically low 50.0-170.0 [facility] Comment on above: Performed By: #### F ETIBC, FERR ####[facility] [address] [place] [id number]. Melissa Helm TIBC DIRECT 483.0 ug/dL Critically high 250.0-450. 0 [facility] Comment on above: Performed By: #### F ETIBC, FERR ####[facility] [address] [place] [id number]. Melissa Helm LIPID PROFILEon 04-16-2022 CHOL-HDL RATIO NORM SEE BELOW Normal [facility] Comment on above: Result Comment: 3.3 - 4.4 LOW RISK 4.4 - 7.1 AVERAGE RISK 7.1 - 11.0 MODERATE RISK >11.0 HIGH RISK Performed By: #### C MP, FT3, LIPID, TSH ####[facility] [address] [place] [address]Dr. Melissa Helm Cholesterol [Mass/Vol] 131 mg/dL Normal <=200 [facility] Comment on above: Performed By: #### C MP, FT3, LIPID, TSH ####[facility] [address] [place] [address]Dr. Melissa Helm Cholesterol in HDL [Mass/Vol] 51 mg/dL Normal 40-60 [facility] Comment on above: Performed By: #### C MP, FT3, LIPID, TSH ####[facility] [address] [place] [id number]. Melissa Helm Cholesterol in LDL [Mass/Vol] 54.0 mg/dL Normal [facility] Comment on above: Performed By: #### C MP, FT3, LIPID, TSH ####[facility] [address] [place] [id number]. Melissa Volodymyr Cholesterol.total/Chol esterol in HDL [Mass ratio] 2.6 {ratio} Normal [facility] Comment on above: Performed By: #### C MP, FT3, LIPID, TSH ####[facility] [address] [place] [address]Dr. Yidomingo Helm HDL NORMAL > or = 60 mg/dl - LO W CARDIOVASCULAR RISK <40 mg/dl - HIGH CARDIOVASCULAR RISK Normal [facility] Comment on above: Performed By: #### C MP, FT3, LIPID, TSH ####[facility] [address] [place] [address]Dr. Melissa Helm LDL CALC NORMAL SEE BELOW Normal [facility] Comment on above: Result Comment: <100 mg/dl OPTIMAL 100 - 129 mg/dl NEAR OR ABOVE OPTIMAL 130 - 159 mg/dl BORDERLINE HIGH 160 - 189 mg/dl HIGH >190 mg/dl VERY HIGH Performed By: #### C MP, FT3, LIPID, TSH ####[facility] [address] [place] [address]Dr. Melissa Helm Triglyceride [Mass/Vol] 130 mg/dL Normal <=150 [facility] Comment on above: Performed By: #### C MP, FT3, LIPID, TSH ####[facility] [address] [place] [address]Dr. Melissa Helm VLDL CALC 26.0 mg/dL Normal [facility] Comment on above: Performed By: #### C MP, FT3, LIPID, TSH ####[facility] [address]oz[address] [place] [address]Dr. Melissa Helm PROF 14(COMP METB)on 022 Albumin [Mass/Vol] 4.0 g/dL Normal 3.4-5.0 [facility] Comment on above: Performed By: #### C MP, FT3, LIPID, TSH ####[facility] [address] [place] [address]Dr. Melissa Helm Albumin/Globulin [Mass ratio] 0.9 {ratio} Normal [facility] Comment on above: Performed By: #### C MP, FT3, LIPID, TSH ####[facility] [address] [place] [address]Dr. Melissa Helm ALP [Catalytic activity/Vol] 263 U/L Critically high 46-116 [facility] Comment on above: Performed By: #### C MP, FT3, LIPID, TSH ####[facility] [address] [place] [address]Dr. Melissa Helm ALT [Catalytic activity/Vol] 9 U/L Critically low 14-59 [facility] Comment on above: Performed By: #### C MP, FT3, LIPID, TSH ####[facility] [address] [place] [address]Dr. Melissa Helm Anion gap [Moles/Vol] 14.7 mmol/L Normal Th e [facility] Comment on above: Performed By: #### C MP, FT3, LIPID, TSH ####[facility] [address] [place] [address]Dr. Melissa Helm AST [Catalytic activity/Vol] 15 U/L Normal 15-37 [facility] Comment on above: Performed By: #### C MP, FT3, LIPID, TSH ####[facility] [address] [place] [address]Dr. Melissa Helm Bilirubin [Mass/Vol] 0.4 mg/dL Normal 0.2-1.0 [facility] Comment on above: Performed By: #### C MP, FT3, LIPID, TSH ####[facility] [address] [place], [place] [address]Dr. Melissa Helm Calcium [Mass/Vol] 9.1 mg/dL Normal 8.5-10.1 [facility] Comment on above: Performed By: #### C MP, FT3, LIPID, TSH ####[facility] [address]xi[address] [place] [address]Dr. Melissa Helm Chloride [Moles/Vol] 98 mmol/L Normal 98-107 [facility] Comment on above: Performed By: #### C MP, FT3, LIPID, TSH ####[facility] [address] [place], [place] [address]Dr. Melissa Helm CO2 [Moles/Vol] 27.5 mmol/L Normal 21.0-32.0 [facility] Comment on above: Performed By: #### C MP, FT3, LIPID, TSH ####[facility] [address] [place] [address]Dr. Melissa Helm Creatinine [Mass/Vol] 1.08 mg/dL Critically high 0.55-1.02 [facility] Comment on above: Performed By: #### C MP, FT3, LIPID, TSH ####[facility] [address] [place] [address]Dr. Melissa Helm EGFR-AF SAO TOMEAN >60 Normal >=60 [facility] Comment on above: Performed By: #### C MP, FT3, LIPID, TSH ####[facility] [address] [place] [address]Dr. Melissa Helm EGFR-NON AF SAO TOMEAN 53 mL/min/1.73m2 Critically low >=60 [facility] Comment on above: Performed By: #### C MP, FT3, LIPID, TSH ####[facility] [address] [place] [address]Dr. Melissa Helm Globulin (S) [Mass/Vol] 4.3 g/dL Normal [facility] Comment on above: Performed By: #### C MP, FT3, LIPID, TSH ####[facility] Bu[address] [place], [place] [address]Dr. Melissa Helm Glucose [Mass/Vol] 80 mg/dL Normal 74-106 [facility] Comment on above: Performed By: #### C MP, FT3, LIPID, TSH ####[facility] [address] [place] [address]Dr. Melissa Helm Potassium [Moles/Vol] 3.2 mmol/L Critically low 3.5-5.1 [facility] Comment on above: Performed By: #### C MP, FT3, LIPID, TSH ####[facility] [address]ms[address] [place] [address]Dr. Melissa Helm Protein [Mass/Vol] 8.3 g/dL Critically high 6.4-8.2 [facility] Comment on above: Performed By: #### C MP, FT3, LIPID, TSH ####[facility] [address] [place] [address]Dr. Melissa Helm Sodium [Moles/Vol] 137 mmol/L Normal 136-145 [facility] Comment on above: Performed By: #### C MP, FT3, LIPID, TSH ####[facility] [address] [place] [address]Dr. Melissa Helm Urea nitrogen [Mass/Vol] 22.0 mg/dL Critically high 7.0-18.0 [facility] Comment on above: Performed By: #### C MP, FT3, LIPID, TSH ####[facility] [address] [place] [address]Dr. Melissa Helm Urea nitrogen/Creatinine [Mass ratio] 20.4 mg/mg Normal [facility] Comment on above: Performed By: #### C MP, FT3, LIPID, TSH ####[facility] [address] [place] [address]Dr. Melissa Helm TSHon 04-16-2022 TSH 30.570 uIU/mL Critically high 0.358-3.[address] [facility] Comment on above: Performed By: #### C MP, FT3, LIPID, TSH ####[facility] [address] [place] [address]Dr. Melissa Helm ICD REMOTE CHECKon 2 AV Delay Adaptive Paced Minimum (ms) 350 ms [facility] AV Delay Adaptive Rate Maximum (bpm) 90 {beats}/min [facility] AV Delay Adaptive Rate Minimum (bpm) 75 {beats}/min [facility] AV Delay Adaptive Sensed Minimum (ms) 250 ms [facility] AV Delay Adaptive Status ENABLED [facility] AV Delay Paced (ms) 100 ms [facility] AV Delay Sensed (ms) 70 ms [facility] Battery Voltage 2.87 V [facility] Scott LV Pacing Polarity BI [facility] Scott RA Pacing Amplitude (volts) 2 V [facility] Scott RA Pacing Polarity BI [facility] Scott RA Pacing Pulse Width (ms) 0.4 ms [facility] Scott RA Sensing Amplitude (mvolts) 0.3 mV [facility] Scott RA Sensing Blanking Period (ms) 150 ms [facility] Scott RA Sensing Polarity BI [facility] Scott RA Sensing Refractory Period (ms) 250 ms [facility] Scott RV Pacing Amplitude (volts) 3 V [facility] Scott RV Pacing Polarity BI [facility] Scott RV Pacing Pulse Width (ms) 0.4 ms [facility] Scott RV Sensing Amplitude (mvolts) 0.3 mV [facility] Scott RV Sensing Blanking Period (ms) 200 ms [facility] Scott RV Sensing Polarity BI [facility] Detection Configuration (Vent) 2 - Zone [facility] FastVT_Detection Interval 450 ms [facility] FastVT_Therapy Configuration 2 ATP(s) + 0 Shock(s) [facility] ICD AFIB DetectionStatus DISABLED [facility] ICD ATAF DetectionInterval ms 450 ms [facility] ICD ATAF DetectionStatus ENABLED [facility] ICD ATAF TherapyConfiguration 2 ATP(s) + 0 Shock(s) [facility] ICD FastVT DetectionStatus ENABLED [facility] ICD-ADLRATE_BPM 85 {beats}/min [facility] ICD-AMS EPISODES 133 {beats}/min [facility] ICD-ATP Episodes (Vent) 0 [facility] ICD-ATRIALFIBRILLATION 339 [facility] ICD-ATRIALTACHYCARDIA 339 [facility] ICD-ATRIALTACHYCARDIA 5 [facility] ICD-ATRIALTACHYCARDIA 7 [facility] ICD-Counters Cleared Date 09/23/2016 [facility] ICD-Device Sri GROSS [facility] ICD-Fast Ventricular Tachycardia 7 [facility] ICD-LEADIMPEDANCEATRIA L 342 ohm [facility] ICD-Percent Pacing (Atrial) 58.38 % [facility] ICD-Percent Pacing (Vent) 88.05 % [facility] ICD-PMT Intervention ENABLED [facility] ICD-PVC Intervention ENABLED [facility] ICD-Rate Modulation Acceleration Reaction 30 s [facility] ICD-Rate Modulation Deceleration Exercise [facility] ICD-Rate Modulation Centre 3 [facility] ICD-Rate Modulation Threshold MediumHigh [facility] ICD-Shocks Aborted (Vent) 0 [facility] CCH-JIGTDL-NMZXKYSYL 0 [facility] ICD-SHOCKSABORTED 0 [facility] ICD-SHOCKSDELIVEREDVEN TRICULAR 0 [facility] ICD-Ventricular Fibrillation 0 [facility] Implant Date 07/03/2005 [facility] Implant Date 11/30/2002 [facility] Lead Impedance (LV) 4047 ohm [facility] Lead Impedance (RV) 703 ohm [facility] Lead Impedance High Voltage 57 ohm [facility] Lead1 Sri GROSS [facility] Lead2 Sri GROSS [facility] Lead3 Mfg GDT [facility] Location LV [facility] Location RA [facility] Location RV [facility] Lower Rate (bpm) 80 {beats}/min [facility] LV PACING % 0 % [facility] Max Sensor Rate (bpm) 90 {beats}/min [facility] MDT_PROG_TACHY_ZONE_DE TECTIONS_STATUS ENABLED [facility] Model [id number] Viva XT DONOR SUPPORT TECHNICIAN-D [facility] Model 4196 Attain Ability MRI SureScan [facility] Model 5076 CapSureFix Novus [facility] Model 0144 [employer] Rx [facility] Pacing Mode DDDR [facility] Serial Number [id number] [facility] Serial Number [id number] [facility] Serial Number [id number] [facility] Serial Number [id number] [facility] Test Charge Energy 18 J [facility] Test Charge Time 4.354 [facility] Therapy Status (Vent) Enabled [facility] Thresh RA Capture Amplitude (volts) 0.625 V [facility] Thresh RA Capture Duration (ms) 0.4 ms [facility] Thresh RA Sensing Amplitude (mvolts) 2 mV [facility] Thresh RV Capture Amplitude (VOLTS) 1.5 V [facility] Thresh RV Capture Duration (MS) 0.4 ms [facility] Thresh RV Sensing Amplitude (MVOLTS) 11.625 mV [facility] Tracking Rate (bpm) 90 {beats}/min [facility] VF Zone Detection Interval 450 ms [facility] VF Zone Therapy Configuration 2 ATP(s) + 0 Shock(s) [facility] No Panel Informationon 04-12 BLANK _ [facility] ICD-ATRIALTACHYCARDIA 0 [facility] ICD-Fast Ventricular Tachycardia 0 [facility] Implant Date 09/23/2016 [facility] COAGULATION SCREENon 022 aPTT Coag (Bld) [Time] 29 s Normal 26 - 39 [facility] Comment on above: Result Comment: THE APTT IS NO LONGER USED FOR MONITORING UNFRACTIONATED HEPARIN THERAPY. FOR MONITORING HEPARIN THERAPY, USE THE HEPARIN ASSAY. Performed By: #### C OAGS #### [address] [phone] PT Coag (PPP) [Time] 16.1 s High 9.8 - 13.4 [facility] Comment on above: Performed By: #### C OAGS #### [facility] [address] [place], [place] [phone] PT, INR 1.4 High 0.9 - 1.1 [facility] Comment on above: Performed By: #### C OAGS #### [facility] [address] [place], [place] [id number] Discharge [id number] 022 Discharge Profile2 Discharge Orders: DNAR: Code Status at Discharge: Full Code Appointments: Follow-Up Appointment 02: Physician/Dept/ServiceDrTarun Nunez Reason for ReferralFollow-up Scheduled Date/Euyb38-Lkl-9420 13:20 [facility] Office Phone [phone] Electronic Signatures: Axel Rangel (COOR) (Signed 21-Jan-2022 09:13) Authored: Discharge Orders, Appointments, Gold Form - Underpresser Hand Summary Last Updated: 21-Jan-2022 09:13 by Axel Rangel (COOR) Normal [facility] Laboratory - Coagulationon 0 01-21-2022 aPTT Coag (PPP) [Time] 29 s 26 - [address] Work Phone: Comment on above: THE APTT IS NO LONGE R USED FOR MONITORING UNFRACTIONATED HEPARIN THERAPY. FOR MONITORING HEPARIN THERAPY, USE THE HEPARIN ASSAY. INR Coag (PPP) [Relative time] 1.4 {INR} above high threshold 0.9 - 1.[address] Work Phone: PT Coag (PPP) [Time] 16.1 s above high threshold 9.8 - 13.[address] Work Phone: No Panel Informationon 01-21 [email or web address] ?ItvvwaqIE=[email or web address]&Date =21-01-2022&Time=17%3a39% 3a41%3a00&TestType=ECG&Si te=11&OutputType=PDF&Ext= PDF [facility] [address] [place] Work Phone: Ventricular-paced rhythm [facility] [address] [place] Work Phone: [phone] [facility] [address] [place] Work Phone: [phone] [facility] [address] [place] Work Phone: [phone] [facility] [address] [place] Work Phone: [phone] [facility] [address] [place] Work Phone: [phone] [facility] [address] [place] Work Phone: [phone] [facility] [address] [place] Work Phone: [phone] [facility] [address] [place] Work Phone: [phone] [facility] [address] [place] Work Phone: [phone] [facility] [address] [place] Work Phone: [phone] [facility] [address] [place] Work Phone: [phone] [facility] [address] [place] Work Phone: [phone] [facility] [address] [place] Work Phone: [phone] [email or web address] ?[email or web address]&Date =21-01-2022&Time=09%3a40% 3a37%3a00&TestType=ECG&Si te=11&OutputType=PDF&Ext= PDF [facility] [address] [place] Work Phone: [phone] Atrial-paced rhythm [facility] [address] [place] Work Phone: Abnormal -[facility] [address] [place] Work Phone: [phone] 1 -[facility] [address] [place] Work Phone: [phone] [facility] [address] [place] Work Phone: [phone] [facility] [address] [place] Work Phone: [phone] [facility] [address] [place] Work Phone: [phone] [facility] [address] [place] Work Phone: [phone] [facility] [address] [place] Work Phone: [phone] [facility] [address] [place] Work Phone: [phone] [facility] [address] [place] Work Phone: [phone] [facility] [address] [place] Work Phone: [phone] [facility] [address] [place] Work Phone: [phone] [facility] [address] [place] Work Phone: [phone] [facility] [address] [place] Work Phone: [phone] [facility] [address] [place] Work Phone: [phone] [facility] [address] [place] Work Phone: Order Reconciliationon 01-21 Order Reconciliation Page 1 Admission Reconciliation Document Reconciliation Type: Observation requested on behalf of Yessi Miller (Advanced Practice Nurse) done by Yessi Miller (OCEANOLOGIST-OPERATIONS CLERK) Observation - Reconciliation: 21-Jan-2022 16:52 by: Yessi Miller (OCEANOLOGIST-OPERATIONS CLERK) Home MedicationsEnteredLast Dose TakenReconciled with current Order Reconciliation Comment/ Additional Information amiodarone 400 mg oral tablet 1 tab(s) orally once a lsk91-Jko-199521-Jan-2022 AM Amiodarone Tablet (CORDARONE; PACERONE)DOSE = 400 [...] oral tablet 1 tab(s) orally once a gpg01-Rsf-021121-Jan-2022 PM Atorvastatin Tablet (LIPITOR)DOSE = 80 mg Oral Daily atorvastatin 80 mg oral tablet continued as the inpatient order Atorvastatin upikguotvu-afxg-arafokxg 50-300-40mg 1 cap(s) orally 2 times a dpt03-Hvc-633721-Jan-2022 Reviewed and Held escitalopram 20 mg oral tablet 1 tab(s) orally once a prg21-Kdp-622921-Jan-2022 AM Escitalopram Tablet (LEXAPRO)DOSE = 20 mg Oral Daily escitalopram 20 mg oral tablet continued as the inpatient order Escitalopram KlonoPIN Wafer 0.5 mg oral tablet, disintegrating 1 tab(s) orally 3 times daily 926133-Suu-6182 PM clonazePAM (KLONOPIN) TabletDOSE = 0.5 mg Oral Every 8 HoursKlonoPIN Wafer 0.5 mg oral tablet, disintegrating continued as the inpatient order clonazePAM (KLONOPIN) Mag-Ox 400 oral tablet 1 tab(s) orally 2 times a syr69-Ure-228473-Bbp-0569 AM Magnesium Oxide Tablet (Mag-Ox)DOSE = 400 mg Oral DailyMag-Ox 400 oral tablet continued as the inpatient order Magnesium Oxide Metoprolol Succinate ER 100 mg oral tablet, extended release 1 tab(s) orally once a fay62-Yzc-942820-Dyz-8454 PM Metoprolol Succinate Extended Release Tablet, Extended Release (TOPROL-XL)DOSE = 100 mg Oral DailyMetoprolol Succinate ER 100 mg oral tablet, extended release continued as the inpatient order Metoprolol Succinate Extended Release Multiple Vitamins oral tablet, dispersible 1 tab(s) orally once a day 900910-Vmo-9090 Reviewed and Held Nitrostat 0.4 mg sublingual tablet 1 tab(s) sublingual every 5 minutes, As Dwaeah36-Gjk-7403ADHMTYA UNKNOWN Nitroglycerin SubLingual Tablet (NITROSTAT)DOSE = 0.4 mg SubLingual Every 5 Minutes, PRN AnginaNitrostat 0.4 mg sublingual tablet continued as the inpatient order Nitroglycerin SubLingual omeprazole 40 mg oral delayed release capsule 1 cap(s) orally once a day 293275-Zwi-3375 AM Pantoprazole Enteric Coated Tablet (PROTONIX)DOSE = 40 mg Oral DailyNotes from Pharmacy: Substitution for Omeprazole 40 mg Oral Capsule Dailyomeprazole 40 mg oral delayed release capsule continued as the inpatient order Pantoprazole Potassium Chloride (Ymd-Uwkv-Wdh M20) 20 mEq oral tablet, extended release 1 tab(s) orally once a way44-Awo-084955-Hsi-6640 AM Potassium Chloride Extended Release Tablet, Extended ReleaseDOSE = 20 mEq Oral DailyPotassium Chloride (Bya-Gpmq-Wqh M20) 20 mEq oral tablet, extended release continued as the inpatient order Potassium Chloride Extended Release rOPINIRole 0.25 mg oral tablet 3 tab(s) orally once a day (at bedtime) 935299-Myh-8245 PM rOPINIRole (REQUIP) TabletDOSE = 0.75 mg Oral At BedtimerOPINIRole 0.25 mg oral tablet continued as the inpatient order rOPINIRole (REQUIP) torsemide 20 mg oral tablet 1 tab(s) orally once a rsa71-Sbf-181796-Zoq-1331 AM Torsemide Tablet (DEMADEX)DOSE = 20 mg Oral Dailytorsemide 20 mg oral tablet continued as the inpatient order Torsemide traZODone 50 mg oral tablet 1 tab(s) orally once a day (at bedtime), As Needed 483716-Zoe-6717 PM traZODone Tablet (DESYREL)DOSE = 50 mg [...] mL Run at: 10 mL/hr IntraVenous Normal [facility] Order Reconciliation Page 1 Discharge Reconciliation Document Reconciliation Type: Discharge requested on behalf of Yessi Miller (Advanced Practice Nurse) done by Yessi Miller (OCEANOLOGIST-[facility]) Discharge - Reconciliation: 21-Jan-2022 16:48 by: Yessi Miller (OCEANOLOGIST-OPERATIONS CLERK) Home Medications EnteredHOME MEDICATIONS AT DISCHARGE DateReconciliation [...] continued as atorvastatin 80 mg oral tablet xslnqzgnkf-jlqf-nmgvyikn 50-300-40mg 1 cap(s) orally 2 times a day 30-Dec-2021 10:27 ynrfdoyhvq-wusz-ocypdkso 50-300-40mg 1 cap(s) orally 2 times a day 30-Dec-2021 10:27 nvmnkifeur-rxet-waiwaxmm 50-300-40mg is continued as pmidhkgjpw-jugn-hkhdeuso 50-300-40mg escitalopram 20 mg oral tablet 1 [...] mg oral delayed release capsule Potassium Chloride (Qhr-Xyea-Rre M20) 20 mEq oral tablet, extended release 1 tab(s) orally once a day 30-Dec-2021 10:33 Potassium Chloride (Ksq-Annk-Ynq M20) 20 mEq oral tablet, extended release 1 tab(s) orally once a day 30-Dec-2021 10:33 Potassium Chloride (Qmd-Mxst-Syo M20) 20 mEq oral tablet, extended release is continued as Potassium Chloride (Rlx-Iysi-Lcx M20) 20 mEq oral tablet, extended release [...] and modifie (more content not included)... Normal [facility] Patient Profile - Preop v3on 01-21-2022 Patient Profile - Preop v3 Patient Profile - Preop: Initial Info: Patient DemographicsName: ESSENCE VINCENT Date: 1970 Address: [address] [place] [address] Date/Time Zadeat99-Abh-3949 Primary Phone [phone] How to be AddressedSherry Spoken Language PreferredEnglish Source of Informationpatient Stated Reason for AdmissionTEE/EP study and ablation Primary Contact Name and NumberDepeggy Singer (significant other) [phone] Limitations on Visitors/Phone Callsnone Medications Brought to Hospital[facility] General Health: Weight in kg76.6 kilogram(s) Weight in wai527.8 pound(s) Weight Methodactual (measured) Scale Typestanding Height [...] valvular disease; dyslipidemia Cardiovascular Management Strategiesroutine screening; administrative medical director; medication therapy Barriers to Managing Healthnone Relationship/Environ: Lives Withalone Living Arrangementsapartment Resource/Environmental Concernsnone Anticipated Transition To[facility] Services Anticipated at Transitionnone Tobacco Use: Tobacco Useno Pre-op Checklist: Arrival Wjfa48-Wpi-0790 Arrival Time09:21 Procedure TypeTEE/EPS/Ablation NPOyes Last Food Rlekru92-Wwd-3479 23:00 Last Clear Fluid Vfzpth72-Hzm-7220 07:00 ID Band On Patientpatient ID (name), [...] Updated: 21-Jan-2022 11:18 by Nannette Alvarez (ELZA) [facility] Transesophageal Echoon 01-21 Transesophageal Echo [place] [address] TRANSESOPHAGEAL ECHOCARDIOGRAM REPORT Patient Name: ESSENCE Gamez Mary Physician: [id number] Soco Bhardwaj MD [facility] Study Date: 01/21/2022 Referring [id number] SOCO BHARDWAJ Physician: MRN/PID: [id number] PCP: Accession/Order#: [id number] Department 2S CathLab Location: Date of : 1970 Fellow: Gender: F Nurse: Yolanda Farrell RN Admit Date: 01/21/2022 Wall Attendant: Trina Obregon RUST Admission Status: Outpatient Additional Staff: Height: 157.00 cm CC Report to: Weight: 76.00 kg Study Type: Transesophageal Echo BSA: 1.77 m2 Blood Pressure: 128 /63 mmHg Diagnosis/ICD: Z01.810-Encounter for preprocedural cardiovascular examination Indication: PRE-EP Procedure/CPT: JOVITA Complete-81193; Moderate Sedation Services initial 15 minutes patient >5 [id number] Study Detail: The following Echo studies were [...] RV Syst Pressure: 40.5 mmHg (< 30mmHg) [address] Soco Bhardwaj MD Electronically signed on 01/21/2022 at 2:53:25 PM Final Normal [facility] Transesophageal Echo MP-N [facility] [id number] Work Phone: ICD REMOTE CHECKon 2 AV Delay Adaptive Paced Minimum (ms) 350 ms [facility] AV Delay Adaptive Rate Maximum (bpm) 90 {beats}/min [facility] AV Delay Adaptive Rate Minimum (bpm) 75 {beats}/min [facility] AV Delay Adaptive Sensed Minimum (ms) 250 ms [facility] AV Delay Adaptive Status ENABLED [facility] AV Delay Paced (ms) 100 ms [facility] AV Delay Sensed (ms) 70 ms [facility] Battery Voltage 2.9 V [facility] Scott LV Pacing Polarity BI [facility] Scott RA Pacing Amplitude (volts) 2 V [facility] Scott RA Pacing Polarity BI [facility] Scott RA Pacing Pulse Width (ms) 0.4 ms [facility] Scott RA Sensing Amplitude (mvolts) 0.3 mV [facility] Scott RA Sensing Blanking Period (ms) 150 ms [facility] Scott RA Sensing Polarity BI [facility] Scott RA Sensing Refractory Period (ms) 250 ms [facility] Scott RV Pacing Amplitude (volts) 3 V [facility] Scott RV Pacing Polarity BI [facility] Scott RV Pacing Pulse Width (ms) 0.4 ms [facility] Scott RV Sensing Amplitude (mvolts) 0.3 mV [facility] Scott RV Sensing Blanking Period (ms) 200 ms [facility] Scott RV Sensing Polarity BI [facility] Detection Configuration (Vent) 2 - Zone [facility] FastVT_Detection Interval 450 ms [facility] FastVT_Therapy Configuration 2 ATP(s) + 0 Shock(s) [facility] ICD ATAF DetectionInterval ms 450 ms [facility] ICD ATAF DetectionStatus ENABLED [facility] ICD ATAF TherapyConfiguration 2 ATP(s) + 0 Shock(s) [facility] ICD FastVT DetectionStatus ENABLED [facility] ICD-ADLRATE_BPM 85 {beats}/min [facility] ICD-AMS EPISODES 133 {beats}/min [facility] ICD-ATP Episodes (Vent) 0 [facility] ICD-ATRIALFIBRILLATION 2063 Cl [facility] ICD-ATRIALTACHYCARDIA 2063 [facility] ICD-ATRIALTACHYCARDIA [facility] ICD-Counters Cleared Date 09/23/2016 [facility] ICD-Device Mfg MDT [facility] ICD-LEADIMPEDANCEATRIA L 304 ohm [facility] ICD-Percent Pacing (Atrial) 24.69 % [facility] ICD-Percent Pacing (Vent) 20.79 % [facility] ICD-PMT Intervention ENABLED [facility] ICD-PVC Intervention ENABLED [facility] ICD-Rate Modulation Acceleration Reaction 30 s [facility] ICD-Rate Modulation Deceleration Exercise [facility] ICD-Rate Modulation Centre 3 [facility] ICD-Rate Modulation Threshold MediumHigh [facility] ICD-Shocks Aborted (Vent) 0 [facility] [id number] 0 [facility] ICD-SHOCKSABORTED 0 [facility] ICD-SHOCKSDELIVEREDVEN TRICULAR 0 [facility] ICD-Ventricular Fibrillation 0 [facility] Implant Date 07/03/2005 [facility] Implant Date 11/30/2002 [facility] Lead Impedance (LV) 4047 ohm [facility] Lead Impedance (RV) 836 ohm [facility] Lead Impedance High Voltage 54 ohm [facility] Lead1 Mfg MDT [facility] Lead2 Mfg MDT [facility] Lead3 Mfg GDT [facility] Location LV [facility] Location RA [facility] Location RV [facility] Lower Rate (bpm) 60 {beats}/min [facility] LV PACING % 0 % [facility] Max Sensor Rate (bpm) 90 {beats}/min [facility] MDT_PROG_TACHY_ZONE_DE TECTIONS_STATUS ENABLED [facility] Model [id number] Viva XT DONOR SUPPORT TECHNICIAN-D [facility] Model 4196 Attain Ability MRI SureScan [facility] Model 5076 CapSureFix Novus [facility] Model 0144 [employer] [facility] Pacing Mode DDDR [facility] Serial Number [id number] [facility] Serial Number [id number] [facility] Serial Number [id number] [facility] Serial Number [id number] [facility] Test Charge Energy 18 J [facility] Test Charge Time 4.324 [facility] Therapy Status (Vent) Enabled [facility] Thresh RA Capture Amplitude (volts) 0.625 V [facility] Thresh RA Capture Duration (ms) 0.4 ms [facility] Thresh RA Sensing Amplitude (mvolts) 2 mV [facility] Thresh RV Capture Amplitude (VOLTS) 1.375 V [facility] Thresh RV Capture Duration (MS) 0.4 ms [facility] Thresh RV Sensing Amplitude (MVOLTS) 10.125 mV [facility] Tracking Rate (bpm) 90 {beats}/min [facility] VF Zone Detection Interval 450 ms [facility] VF Zone Therapy Configuration 2 ATP(s) + 0 Shock(s) [facility] No Panel Informationon 01-14 BLANK _ [facility] ICD-ATRIALTACHYCARDIA 0 [facility] ICD-Fast Ventricular Tachycardia 0 [facility] Implant Date 09/23/2016 [facility] Prothrombin Time INRon 12-23 INR Coag (PPP) [Relative time] 3.3 {INR} [employer] Other Prothrombin Time INR [facility] [employer] Other Prothrombin Time INRon 12-09 INR Coag (PPP) [Relative time] 1.2 {INR} [employer] Other Prothrombin Time INR [employer] Other Office Visit (Cardiology)on 12-05-2021 Follow-up visit [...] Blood Count; Status:Active - Retrospective Authorization; Requested for:[id number]; CORONAVIRUS 2019 RNA BY PCR, SCREEN ASYMPTOMATIC AMBULATORY; Status:Hold For - Specimen/Data Collection,Retrospective Authorization; Requested for:[id number]; ? : Unknown RESIDENT IN CONGREGATE CARE SETTING? : Unknown ICU? : No HOSPITALIZED (OR PLANNED TO BE ADMITTED)? : No SYMPTOMATIC DEFINED BY CDC? : No EMPLOYED IN HEALTHCARE? : Unknown FIRST COVID NASAL SWAB TEST? : Unknown PT/INR; Status:Active - Retrospective Authorization; Requested for:[id number]; Atrial tachycardia Transesophageal Echo; Status:Hold For - Scheduling,Retrospective Authorization; Requested for:[id number]; Health Maintenance Avoid alcoholic beverages.; Status:Complete - Retrospective Authorization; Done: [id number] Avoid foods and beverages that contain caffeine.; Status:Complete - Retrospective Authorization; Done: [id number] Begin or continue regular aerobic exercise. Gradually work up to at least 3 sessions of 30 minutes of exercise a week.; Status:Complete - Retrospective Authorization; Done: [id number] Diets that are low in carbohydrates and high in protein are very popular for weight loss.; Status:Complete - Retrospective Authorization; Done: [id number] Eat a low fat and low cholesterol diet.; Status:Complete - Retrospective Authorization; Done: [id number] Losing just 5 to 10 pounds may lower your risk of health problems.; Status:Complete - Retrospective Authorization; Done: [id number] Please bring all medicines, vitamins, and herbal supplements with you when you come to the office.; Status:Complete - Retrospective Authorization; Done: [id number] Restrict the salt in your diet by avoiding highly salted foods.; Status:Complete - Retrospective Authorization; Done: [id number] SocHx: Former smoker Tobacco Use Screening; Status:Complete; Done: [id number] Patient Instructions HOLD WARFARIN 4 DAYS PRIOR [...] Dr. Hoskins for possible ablation. Seen at [facility] 11/04/2021 Adult Risk Screening Initial Fall Risk Screening: ESSENCE has not fallen in the last 6 months. Tobacco Screening: ESSENCE does not use tobacco. Blood Pressure monitoring Blood Pressure Controlled, Systolic <130 mm Hg Blood Pressure Controlled, Diastolic < 80mm Hg History of Present Illness She is referred by Dr. Hoskins for evaluation for ablation of atrial flutter. She has remote history of [place] , cardiogenic shock, PCI circumflex and iABP, with persistent severe LV dysfunction. She later occluded her cicumflex. Years later, she had HF and severe MR and underwent mitral valve repair at [facility]. She had recurrent VT and atrial arrhythmias, and underwent several ablations and repeat percutaneous MVR at [facility]. After her MVR and ablation in July,, [...] syncope, palpitat (more content not included)... Normal [facility] Tobacco Screening.on 022 Fall risk assessment a) No falls within the last year [facility] [employer] [address] DO Work Phone: Tobacco use status CP b) No [facility] [employer] [address] DO Work Phone: Tobacco Screening. Yes [facility] [address] DO Work Phone: Prothrombin Time INRon 11-19 INR Coag (PPP) [Relative time] 1.59 {INR} [employer] Other Prothrombin Time INR [facility] [employer] Other Prothrombin Time INRon 11-11 INR Coag (PPP) [Relative time] 2.2 {INR} [employer] Other Prothrombin Time INR [facility] [employer] Other Prothrombin Time INRon 11-04 INR Coag (PPP) [Relative time] 1.1 {INR} [employer] Other Prothrombin Time INR [facility] [employer] Other Prothrombin Time INRon 10-29 INR Coag (PPP) [Relative time] 1.22 {INR} [employer] Other Prothrombin Time INR [facility] [employer] Other Prothrombin Time INRon 10-23 INR Coag (PPP) [Relative time] 1.29 {INR} [employer] Other Prothrombin Time INR [facility] [employer] Other Activated partial thrombopla stin time (aPTT) in platelet poor plasma by coagulation aon 10-13-2021 aPTT Coag (PPP) [Time] 31.8 s 25.1-36.5 Fi [facility] Amphetamine Screen Ql (U)on 10-13-2021 Amphetamines Ql (U) Negative Negative [facility] Automated erythrocytes count in urine sediment (number/area)on 10-13-2021 RBC Auto (Urine sed) [#/Area] 1-2 [HPF] [facility] Automated leukocytes count i n urine sediment (number/area)on 10-13-2021 WBC Auto (Urine sed) [#/Area] 20-49 [HPF] [facility] Automated urine hyaline cast s count (number/volume)on 10-13-2021 Hyaline casts Auto (U) [#/Vol] None seen [LPF] [facility] Barbiturates [Presence] in U rineon 10-13-2021 Barbiturates Ql (U) Negative Negative [facility] Basophils Auto (Bld) [#/Vol] on 10-13-2021 Basophils (Bld) [#/Vol] 0.1 10*3/uL 0.0-0.2 [facility] Basophils/100 WBC Auto (Bld) on 10-13-2021 Basophils/100 WBC (Bld) 0.9 % [facility] Benzodiazepines [Presence] i n Urineon 10-13-2021 Benzodiazepines Ql (U) Negative Negative [facility] Bilirubin Test strip Ql (U)o n 10-13-2021 Bilirubin Ql (U) Negative Negative [facility] Blood anisocytosis detection on 10-13-2021 Anisocytosis Ql (Bld) Marked [facility] Blood hemoglobin measurement (mass/volume)on 10-13-2021 Hemoglobin (Bld) [Mass/Vol] 11.7 g/dL 11.8-15.4 [facility] Blood leukocytes automated c ount (number/volume)on 10-13-2021 WBC (Bld) [#/Vol] 11.4 10*3/uL 4.5-11.0 [facility] Blood polychromasia detectio n by light microscopyon 10-13-2021 Polychromasia LM Ql (Bld) Slight [facility] Body fluid albumin measureme nt (mass/volume)on 10-13-2021 Albumin (Body fld) [Mass/Vol] 3.0 g/dL 3.2-5.5 [facility] COVID-19 SOFIAon 10-13-2021 SARS-CoV+SARS-CoV-2 (COVID-19) Ag IA.rapid Ql (Resp) Negative Negative [facility] Comment on above: This is a duplicate Maranda SARS Antigen (CAIT) result to be used for statistical tracking purpose only. Cannabinoids [Presence] in U rine by Screen methodon 10-13-2021 Cannabinoids Screen Ql (U) Positive Negative [facility] Comment on above: These are unconfirme d results and should not be used for legal purposes. Drug Cut-Off Concentration: AMPH 1000 ng/mL ALESSANDRO 200 ng/mL RHINA 200 ng/mL COCM 300 ng/mL OP 300 ng/mL PCP 25 ng/mL THC 20 ng/mL Casts typing in urine sedime nt by light microscopyon 10-13-2021 Casts LM Nom (Urine sed) None seen [LPF] None Seen [facility] Color Auto (U)on 10-13-2021 Color (U) Yellow Yellow [facility] Creatine kinase [Enzymatic a ctivity/volume] in Serum or Plasmaon 10-13-2021 CK [Catalytic activity/Vol] 61 U/L [facility] Creatinine and Glomerular fi ltration rate.predicted panel (S/P/Bld)on 10-13-2021 Creatinine [Mass/Vol] 3.62 mg/dL 0.44-1.03 [facility] Digoxin [Mass/volume] in Ser um or Plasmaon 10-13-2021 Digoxin [Mass/Vol] 8.7 ng/mL 0.9-2.0 [facility] Comment on above: Critical valueresult calledat 1837 on 10/13/21Last dose: - Eosinophils Auto (Bld) [#/Vo l]on 10-13-2021 Eosinophils (Bld) [#/Vol] 0.0 10*3/uL 0.0-0.45 [facility] Eosinophils/100 WBC Auto (Bl d)on 10-13-2021 Eosinophils/100 WBC (Bld) 0.0 % [facility] Erythrocyte distribution wid th Auto (RBC) [Ratio]on 10-13-2021 Erythrocyte distribution width (RBC) [Ratio] 23.1 % 11.9-15.3 [facility] Estimated glomerular filtrat ion rate (GFR) non- Americanon 10-13-2021 GFR/1.73 sq M.predicted among non-blacks MDRD (S/P/Bld) [Vol rate/Area] 13 mL/Min [facility] Globulin Calc (S) [Mass/Vol] on 10-13-2021 Globulin (S) [Mass/Vol] 3.2 g/dL [facility] Haptoglobin [Mass/volume] in Serum or Plasmaon 10-13-2021 Haptoglobin [Mass/Vol] 175 mg/dL 37-246 Fi [facility] Hematocrit Auto (Bld) [Volum e fraction]on 10-13-2021 Hematocrit (Bld) [Volume fraction] 38.3 % 34.0-46.4 [facility] Hypochromia detectionon 09-30 Hypochromia Ql (Bld) Slight [facility] Ketones Auto test strip (U) [Mass/Vol]on 10-13-2021 Ketones (U) [Mass/Vol] Negative Negative Fi [facility] Laboratory - Chemistry and C hemistry - challengeon 10-13-2021 Natriuretic peptide B (Bld) [Mass/Vol] 279.0 pg/mL 5-100 [facility] Laboratory - Coagulationon 0 10-13-2021 PT Coag (PPP) [Time] 23.0 s 9.0-12.9 [facility] Laboratory - Drug toxicology on 10-13-2021 Opiates Ql (U) Negative Negative [facility] Laboratory - Hematology and Cell countson 10-13-2021 Nucleated RBC/100 WBC (Bld) [Ratio] 0.1 % 0-0.5 [facility] Lactate dehydrogenase measur ement (enzymatic activity/volume)on 10-13-2021 LDH (Unsp spec) [Catalytic activity/Vol] 310 U/L 45-190 [facility] Lymphocytes Auto (Bld) [#/Vo l]on 10-13-2021 Lymphocytes (Bld) [#/Vol] 1.1 10*3/uL 1.00-4.8 [facility] Lymphocytes/100 WBC Auto (Bl d)on 10-13-2021 Lymphocytes/100 WBC (Bld) 9.5 % [facility] MCH Auto (RBC) [Entitic mass ]on 10-13-2021 MCH (RBC) [Entitic mass] 20.4 pg 24.7-34.3 [facility] MCHC Auto (RBC) [Mass/Vol]on 10-13-2021 MCHC (RBC) [Mass/Vol] 30.5 g/dL 32.0-35.0 [facility]ir [facility] MCV Auto (RBC) [Entitic vol] on 10-13-2021 MCV (RBC) [Entitic vol] 67.0 fL 80-100 [facility] Monocytes Auto (Bld) [#/Vol] on 10-13-2021 Monocytes (Bld) [#/Vol] 0.9 10*3/uL 0.0-0.8 [facility] Monocytes/100 WBC Auto (Bld) on 10-13-2021 Monocytes/100 WBC (Bld) 7.8 % [facility] Neutrophils Auto (Bld) [#/Vo l]on 10-13-2021 Neutrophils (Bld) [#/Vol] 9.3 10*3/uL 1.8-7.7 [facility] Neutrophils/100 WBC Auto (Bl d)on 10-13-2021 Neutrophils/100 WBC (Bld) 81.8 % [facility] Nitrite Test strip Ql (U)on 10-13-2021 Nitrite Ql (U) Negative Negative [facility] No Panel Informationon 10-13 Estimated GFR () 16 mL/Min [facility] Comment on above: GFR estimated refere nce range: According to KDOQI guidelines, <60 ml/min/1.73m2 is sufficient to diagnose a patient with chronic kidney disease. Microcytosis Moderate [facility] Creatinine Clearance (Chem 16.83 [facility] Platelet Estimate Decreased Normal [facility] Platelet Morphology Comment Normal Normal [facility] Schistocytes Slight [facility] Ovalocyte detectionon 2021 Ovalocytes LM Ql (Bld) Slight Fi [facility] Phencyclidine Screen Ql (U)o n 10-13-2021 Phencyclidine Ql (U) Negative Negative [facility] Platelet mean volume Auto (B ld) [Entitic vol]on 10-13-2021 Platelet mean volume (Bld) [Entitic vol] 9.0 fL 6.3-10.7 [facility] Platelet poor plasma interna tional normalized ratio (INR) by coagulation assay (relaton 10-13-2021 INR Coag (PPP) [Relative time] 2.0 {INR} [facility] Comment on above: INR Therapeutic Rang e [...] 10-13-2021 Platelets (Bld) [#/Vol] 29 10*3/uL 150-450 [facility] Comment on above: Results calledat 151 0 on 10/13/21 Protein Auto test strip (U) [Mass/Vol]on 10-13-2021 Protein (U) [Mass/Vol] Negative Negative Fi [facility] Protein [Mass/volume] in Ser um or Plasmaon 10-13-2021 Protein [Mass/Vol] 6.2 g/dL 6.1-7.9 [facility] RBC Auto (Bld) [#/Vol]on RBC (Bld) [#/Vol] 5.72 10*6/uL 3.60-5.00 [facility] RBC morphologyon 10-13-2021 RBC morphology finding Nom (Bld) N/A [facility] Serum or plasma alanine hernandez otransferase measurement without P-5'-P (enzymatic activion 10-13-2021 ALT No additional P-5'-P [Catalytic activity/Vol] 12 U/L 10-60 [facility] Serum or plasma albumin/glob ulin mass ratioon 10-13-2021 Albumin/Globulin [Mass ratio] 0.9 {ratio} [facility] Serum or plasma alkaline rosanna sphatase measurement (enzymatic activity/volume)on 10-13-2021 ALP [Catalytic activity/Vol] 147 U/L 32-92 [facility] Serum or plasma aspartate am inotransferase measurement (enzymatic activity/volume)on 10-13-2021 AST [Catalytic activity/Vol] 26 U/L 10-42 [facility] Serum or plasma calcium jackie urement (mass/volume)on 10-13-2021 Calcium [Mass/Vol] 8.2 mg/dL 8.2-10.2 [facility] Serum or plasma chloride jose antonio surement (moles/volume)on 10-13-2021 Chloride [Moles/Vol] 91 mmol/L 95-114 [facility] Serum or plasma creatine kin ase MB (CKMB)/total creatine kinase (CK) ratio by calculaon 10-13-2021 CK.MB Calc [Catalytic fraction] 17.3 % 0.00-2.50 [facility] Serum or plasma creatine kin ase MB measurement (mass/volume)on 10-13-2021 CK.MB [Mass/Vol] 10.6 ng/mL 0.6-6.3 [facility] Serum or plasma glucose jackie urement (mass/volume)on 10-13-2021 Glucose [Mass/Vol] 98 mg/dL 70-100 [facility] Comment on above: ADA recommended refe rence rangeRandom Glucose Reference Range is dependent on time and content of last meal. Glucose of more than 200 mg/dL in a nonstressed, ambulatory subject supports the diagnosis of Diabetes Mellitus. Serum or plasma potassium me asurement (moles/volume)on 10-13-2021 Potassium [Moles/Vol] 3.3 mmol/L 3.5-5.1 [facility] Serum or plasma sodium measu rement (moles/volume)on 10-13-2021 Sodium [Moles/Vol] 130 mmol/L 136-146 [facility] Serum or plasma total biliru bin measurement (mass/volume)on 10-13-2021 Bilirubin [Mass/Vol] 0.6 mg/dL 0.3-1.2 [facility] Serum or plasma total carbon dioxide measurement (moles/volume)on 10-13-2021 CO2 [Moles/Vol] 23.0 mmol/L 22.0-30.0 [facility] Serum or plasma urea nitroge n measurement (mass/volume)on 10-13-2021 Urea nitrogen [Mass/Vol] 51 mg/dL 9-23 [facility] Specific gravity Auto test s trip (U) [Rel density]on 10-13-2021 Specific gravity (U) [Rel density] 1.007 1.001-1.03 0 [facility] Squamous epithelial cells de tection in urine sediment by light microscopyon 10-13-2021 Epithelial cells.squamous LM Ql (Urine sed) 10-19 [HPF] [facility] Teardrop cell detectionon Dacrocytes LM Ql (Bld) Slight [facility] Trichomonas vaginalis detect ion in urine sediment by light microscopyon 10-13-2021 T. vaginalis LM Ql (Urine sed) 3-4 [HPF] None Seen [facility] Troponin I.cardiac [Mass/vol ume] in Serum or Plasma by High sensitivity methodon 10-13-2021 Troponin I.cardiac High sensitivity method [Mass/Vol] 139 pg/mL 0-15 [facility] Comment on above: Critical valueresult calledat 1909 on 10/13/21 Urine bacteria detection by automated methodon 10-13-2021 Bacteria Auto Ql (U) None seen None Seen [facility] Urine clarity by refractomet ry automatedon 10-13-2021 Clarity Refractometry automated (U) Cloudy Clear [facility] Urine cocaine detectionon Cocaine Ql (U) Negative Negative [facility] Urine glucose measurement by automated test strip (mass/volume)on 10-13-2021 Glucose Auto test strip (U) [Mass/Vol] Normal mg/dL Normal [facility] Urine hemoglobin detection b y automated test stripon 10-13-2021 Hemoglobin Auto test strip Ql (U) Trace Negative [facility] Urine lactic acid measuremen ton 10-13-2021 Lactate (U) [Moles/Vol] 1.5 mmol/L [facility] Urine leukocyte esterase det ection by automated test stripon 10-13-2021 Leukocyte esterase Auto test strip Ql (U) 3+ Negative [facility] Urobilinogen Auto test strip (U) [Mass/Vol]on 10-13-2021 Urobilinogen (U) [Mass/Vol] Normal mg/dL Normal [facility] pH Auto test strip (U)on pH (U) 5.5 [pH] 5.0-9.0 [facility] Prothrombin Time INRon 09-04 Pro[facility]bin [facility] [employer] Other Prothrombin Time INRon 07-17 INR Coag (PPP) [Relative time] 2.0 {INR} [employer] Other [facility] Time [facility] [employer] Other Prothrombin Time INRon 06-30 INR Coag (PPP) [Relative time] 4.4 {INR} [employer] Other [facility] Time [facility] [employer] Other Prothrombin Time INRon 06-09 INR Coag (PPP) [Relative time] 4.9 {INR} [employer] Other Prothrombin Time INR [employer] [facility] Other Laboratory - Coagulationon 0 12-23-2020 PT Coag (PPP) [Time] 314.1 s 9.0-12.9 [facility] Comment on above: Results calledat 111 7 on 12/23/20 Platelet poor plasma interna tional normalized ratio (INR) by coagulation assay (relaton 12-23-2020 INR Coag (PPP) [Relative time] 27.1 {INR} [facility] Comment on above: Results calledat 111 7 [...] 11-25-2020 Basophils (Bld) [#/Vol] 0.1 10*3/uL 0.0-0.2 [facility] Basophils/100 WBC Auto (Bld) on 11-25-2020 Basophils/100 WBC (Bld) 1.7 % [facility] Blood anisocytosis detection on 11-25-2020 Anisocytosis Ql (Bld) Marked [facility] Blood hemoglobin measurement (mass/volume)on 11-25-2020 Hemoglobin (Bld) [Mass/Vol] 8.3 g/dL 11.8-15.4 [facility] Blood leukocytes automated c ount (number/volume)on 11-25-2020 WBC (Bld) [#/Vol] 8.5 10*3/uL 4.5-11.0 [facility] Blood polychromasia detectio n by light microscopyon 11-25-2020 Polychromasia LM Ql (Bld) Moderate [facility] Creatinine and Glomerular fi ltration rate.predicted panel (S/P/Bld)on 11-25-2020 Creatinine [Mass/Vol] 0.79 mg/dL 0.44-1.03 [facility] Eosinophils Auto (Bld) [#/Vo l]on 11-25-2020 Eosinophils (Bld) [#/Vol] 0.3 10*3/uL 0.0-0.45 [facility] Eosinophils/100 WBC Auto (Bl d)on 11-25-2020 Eosinophils/100 WBC (Bld) 3.3 % [facility] Erythrocyte distribution wid th Auto (RBC) [Ratio]on 11-25-2020 Erythrocyte distribution width (RBC) [Ratio] 21.0 % 11.9-15.3 [facility] GFR/1.73 sq M.predicted emily g non-blacks MDRD (S/P/Bld) [Vol rate/Area]on 11-25-2020 GFR/1.73 sq M predicted among non-blacks MDRD (S/P/Bld) [Vol rate/Area] > 60 mL/Min [facility] HCG ( test) IA.rapi d Ql (U)on 11-25-2020 HCG ( test) Ql (U) Negative [facility] Hematocrit Auto (Bld) [Volum e fraction]on 11-25-2020 Hematocrit (Bld) [Volume fraction] 26.3 % 34.0-46.4 [facility] Hematologyon 11-25-2020 PT Coag (PPP) [Time] 13.6 s 9.0-12.9 [facility] Platelets (Bld) [#/Vol] Normal Normal [facility] Hypochromia detectionon 10-29 Hypochromia Ql (Bld) Moderate [facility] Lymphocytes Auto (Bld) [#/Vo l]on 11-25-2020 Lymphocytes (Bld) [#/Vol] 1.9 10*3/uL 1.00-4.8 [facility] Lymphocytes/100 WBC Auto (Bl d)on 11-25-2020 Lymphocytes/100 WBC (Bld) 22.6 % [facility] MCH Auto (RBC) [Entitic mass ]on 11-25-2020 MCH (RBC) [Entitic mass] 21.5 pg 24.7-34.3 [facility] MCHC Auto (RBC) [Mass/Vol]on 11-25-2020 MCHC (RBC) [Mass/Vol] 31.5 g/dL 32.0-35.0 [facility] MCV Auto (RBC) [Entitic vol] on 11-25-2020 MCV (RBC) [Entitic vol] 68.2 fL 80-100 [facility] Monocytes Auto (Bld) [#/Vol] on 11-25-2020 Monocytes (Bld) [#/Vol] 0.8 10*3/uL 0.0-0.8 [facility] Monocytes/100 WBC Auto (Bld) on 11-25-2020 Monocytes/100 WBC (Bld) 8.8 % [facility] Neutrophils Auto (Bld) [#/Vo l]on 11-25-2020 Neutrophils (Bld) [#/Vol] 5.4 10*3/uL 1.8-7.7 [facility] Neutrophils/100 WBC Auto (Bl d)on 11-25-2020 Neutrophils/100 WBC (Bld) 63.6 % [facility] No Panel Informationon 11-25 Estimated GFR () > 60 mL/Min [facility] Comment on above: GFR estimated refere nce range: According to KDOQI guidelines, <60 ml/min/1.73m2 is sufficient to diagnose a patient with chronic kidney disease. Platelet Estimate Normal Normal [facility] Otheron 11-25-2020 GFR/1.73 sq M.predicted MDRD (S/P/Bld) [Vol rate/Area] > 60 mL/Min [facility] Comment on above: GFR estimated refere nce range: According to KDOQI guidelines, <60 ml/min/1.73m2 is sufficient to diagnose a patient with chronic kidney disease. Microcytosis Moderate [facility] Nucleated RBC/100 WBC (Bld) [Ratio] 0.2 % 0-0.5 [facility] Creatinine Clearance (Chem 84.61 [facility] Platelet Morphology Comment Normal Normal [facility] Poikilocytosis Slight [facility] Schistocytes Slight [facility] Ovalocyte detectionon 2020 Ovalocytes LM Ql (Bld) Slight [facility] Platelet mean volume Auto (B ld) [Entitic vol]on 11-25-2020 Platelet mean volume (Bld) [Entitic vol] 8.8 fL 6.3-10.7 [facility] Platelet poor plasma interna tional normalized ratio (INR) by coagulation assay (relaton 11-25-2020 INR Coag (PPP) [Relative time] 1.2 {INR} [facility] Comment on above: INR Therapeutic Rang e [...] 11-25-2020 Platelets (Bld) [#/Vol] 318 10*3/uL 150-450 [facility] RBC Auto (Bld) [#/Vol]on RBC (Bld) [#/Vol] 3.85 10*6/uL 3.60-5.00 [facility] RBC morphologyon 11-25-2020 RBC morphology finding Nom (Bld) N/A [facility] Serum or plasma calcium jackie urement (mass/volume)on 11-25-2020 Calcium [Mass/Vol] 8.6 mg/dL 8.2-10.2 [facility] Serum or plasma chloride jose antonio surement (moles/volume)on 11-25-2020 Chloride [Moles/Vol] 102 mmol/L 95-114 [facility] Serum or plasma glucose jackie urement (mass/volume)on 11-25-2020 Glucose [Mass/Vol] 87 mg/dL 70-100 [facility] Comment on above: ADA recommended refe rence rangeRandom Glucose Reference Range is dependent on time and content of last meal. Glucose of more than 200 mg/dL in a nonstressed, ambulatory subject supports the diagnosis of Diabetes Mellitus. Serum or plasma potassium me asurement (moles/volume)on 11-25-2020 Potassium [Moles/Vol] 3.9 mmol/L 3.5-5.1 [facility] Serum or plasma sodium measu rement (moles/volume)on 11-25-2020 Sodium [Moles/Vol] 135 mmol/L 136-146 [facility] Serum or plasma total carbon dioxide measurement (moles/volume)on 11-25-2020 CO2 [Moles/Vol] 22.7 mmol/L 22.0-30.0 [facility] Serum or plasma urea nitroge n measurement (mass/volume)on 11-25-2020 Urea nitrogen [Mass/Vol] 8 mg/dL 9-23 [facility] Target cellson 11-25-2020 Target cells LM Ql (Bld) Slight [facility] Urine human chorionic gonado tropin (hCG) detection by immunoassayon 11-25-2020 HCG ( test) Ql (U) Negative [facility] Creatine kinase [Enzymatic a ctivity/volume] in Serum or Plasmaon 11-24-2020 CK [Catalytic activity/Vol] 54 U/L 22269 [facility] Otheron 11-24-2020 CBC Comment See comment [facility] Comment on above: There is significant microcytosis which suggests the possibility of iron deficiency. Consider serum ferritin and iron studies. Serum or plasma cardiac trop onin I measurement (mass/volume)on 11-24-2020 Troponin I.cardiac [Mass/Vol] ng/mL 0-0.02 [facility] Comment on above: [place] Cut off value > or equal to 0.03 ng/mL in conjunction with clinical conditions of myocardial infarction.([email or web address]) Troponin I.cardiac [Mass/Vol] ng/mL 0-0.02 [facility] Comment on above: E[place] Cut off value > or equal to 0.03 ng/mL in conjunction with clinical conditions of myocardial infarction.([email or web address]) Serum or plasma creatine kin ase MB (CKMB)/total creatine kinase (CK) ratio by calculaon 11-24-2020 CK.MB Calc [Catalytic fraction] 3.8 % 0.00-2.50 [facility] Serum or plasma creatine kin ase MB measurement (mass/volume)on 11-24-2020 CK.MB [Mass/Vol] 2.1 ng/mL 0.6-6.3 [facility] Teardrop cell detectionon Dacrocytes LM Ql (Bld) Rare Fi [facility] Activated partial thrombopla stin time (aPTT) in platelet poor plasma by coagulation aon 11-23-2020 aPTT Coag (PPP) [Time] 92.8 s 25.1-36.5 Fi [facility] Comment on above: Critical valueresult calledat 1511 on 11/23/20 Automated basophil %on 11-23 Basophils/100 WBC (Bld) 1.1 % [facility] Automated basophil counton 0 11-23-2020 Basophils (Bld) [#/Vol] 0.2 10*3/uL 0.0-0.2 [facility] Automated blood lymphocyte c ount (number/volume)on 11-23-2020 Lymphocytes (Bld) [#/Vol] 1.5 10*3/uL 1.00-4.8 [facility] Automated blood lymphocyte c ount as percentage of total leukocyteson 11-23-2020 Lymphocytes/100 WBC (Bld) 10.4 % [facility] Automated blood monocyte cou nton 11-23-2020 Monocytes (Bld) [#/Vol] 1.5 10*3/uL 0.0-0.8 [facility] Automated blood platelet cou nt (count/volume)on 11-23-2020 Platelets (Bld) [#/Vol] 327 10*3/uL 150-450 [facility] Automated blood platelet jose antonio n volume measurementon 11-23-2020 Platelet mean volume (Bld) [Entitic vol] 8.1 fL 6.3-10.7 [facility] Automated eosinophil %on Eosinophils/100 WBC (Bld) 1.5 % [facility] Automated eosinophil counton 11-23-2020 Eosinophils (Bld) [#/Vol] 0.2 10*3/uL 0.0-0.45 [facility] Automated erythrocyte distri bution width ratioon 11-23-2020 Erythrocyte distribution width (RBC) [Ratio] 21.1 % 11.9-15.3 [facility] Automated erythrocyte mean c orpuscular hemoglobin (mass per erythrocyte)on 11-23-2020 MCH (RBC) [Entitic mass] 21.2 pg 24.7-34.3 [facility] Automated erythrocyte mean c orpuscular hemoglobin concentration measurement (mass/volon 11-23-2020 MCHC (RBC) [Mass/Vol] 31.0 g/dL 32.0-35.0 [facility] Automated erythrocyte mean c orpuscular volumeon 11-23-2020 MCV (RBC) [Entitic vol] 68.4 fL 80-100 [facility] Automated erythrocytes count in urine sediment (number/area)on 11-23-2020 RBC Auto (Urine sed) [#/Area] 20-49 [HPF] [facility] Automated leukocytes count i n urine sediment (number/area)on 11-23-2020 WBC Auto (Urine sed) [#/Area] 50-100 [HPF] [facility] Automated monocyte %on 11-23 Monocytes/100 WBC (Bld) 9.8 % [facility] Automated neutrophil %on Neutrophils/100 WBC (Bld) 77.2 % [facility] Bilirubin Test strip Ql (U)o n 11-23-2020 Bilirubin Ql (U) Negative Negative [facility] Blood anisocytosis detection on 11-23-2020 Anisocytosis Ql (Bld) Moderate [facility] Blood erythrocytes automated count (number/volume)on 11-23-2020 RBC (Bld) [#/Vol] 3.91 10*6/uL 3.60-5.00 [facility] Blood hemoglobin measurement (mass/volume)on 11-23-2020 Hemoglobin (Bld) [Mass/Vol] 8.3 g/dL 11.8-15.4 [facility] Blood leukocytes automated c ount (number/volume)on 11-23-2020 WBC (Bld) [#/Vol] 14.9 10*3/uL 4.5-11.0 [facility] Blood neutrophil count by au tomated method (number/volume)on 11-23-2020 Neutrophils (Bld) [#/Vol] 11.5 10*3/uL 1.8-7.7 [facility] Blood polychromasia detectio n by light microscopyon 11-23-2020 Polychromasia LM Ql (Bld) Slight [facility] COVID-19 Positive/Negativeon 11-23-2020 COVID-19 Positive/Negative Negative Negative [facility] Comment on above: Reference: NegativeT esting for SARS-CoV-2 by RT-PCRThis test was developed and its performance characteristics determined by [employer] ([employer]) and validated at the [facility]. This test has not been [...] N gene ADITI+probe Ql (Resp) Negative Negative [facility] Comment on above: Reference: NegativeT esting for SARS-CoV-2 by RT-PCRThis test was developed and its performance characteristics determined by [employer] ([employer]) and validated at the [facility]. This test has not been [...] COVID-19 SOFIAon 11-23-2020 COVID-19 MARANDA Negative Negative [facility] Comment on above: This is a duplicate Maranda SARS Antigen (CAIT) result to be used for statistical tracking purpose only. SARS-CoV+SARS-CoV-2 (COVID-19) Ag IA.rapid Ql (Resp) Negative Negative [facility] Comment on above: This is a duplicate Maranda SARS Antigen (CAIT) result to be used for statistical tracking purpose only. CT biopsyon 11-23-2020 Transferrin [Mass/Vol] 321 mg/dL 180-380 [facility] 11-23-2020 Natriuretic peptide B (Bld) [Mass/Vol] 859.0 pg/mL 5-100 [facility] Color Auto (U)on 11-23-2020 Color (U) Yellow Yellow [facility] Creatine kinase [Enzymatic a ctivity/volume] in Serum or Plasmaon 11-23-2020 CK [Catalytic activity/Vol] 66 U/L 22-269 [facility] Estimated glomerular filtrat ion rate (GFR) non- Americanon 11-23-2020 GFR/1.73 sq M predicted among non-blacks MDRD (S/P/Bld) [Vol rate/Area] > 60 mL/Min [facility] Ferritin [Mass/volume] in Se rum or Plasmaon 11-23-2020 Ferritin [Mass/Vol] 39.9 ng/mL 11-306.8 [facility] Folate [Mass/volume] in Seru m or Plasmaon 11-23-2020 Folate [Mass/Vol] ng/mL >5.9 [facility] Comment on above: Folate reference ran ge: >5.9 ng/mlThe WHO technical consultation on folate and vitamin [id number] has determined that folate concentrations lessthan 4 ng/ml are considered deficient. Folate [Mass/Vol] ng/mL >5.9 [facility] Comment on above: Folate reference ran ge: >5.9 ng/mlThe WHO technical consultation on folate and vitamin [id number] has determined that folate concentrations lessthan 4 ng/ml are considered deficient. Hematocrit [Volume Fraction] of Blood by Automated counton 11-23-2020 Hematocrit (Bld) [Volume fraction] 26.7 % 34.0-46.4 [facility] Hematologyon 11-23-2020 Platelets (Bld) [#/Vol] Normal Normal [facility] PT Coag (PPP) [Time] 189.6 s 9.0-12.9 [facility] Hypochromia detectionon 10-29 Hypochromia Ql (Bld) Moderate [facility] Iron [Mass/volume] in Serum or Plasmaon 11-23-2020 Iron [Mass/Vol] 19 ug/dL 40-150 [facility] Iron binding capacity [Mass/ volume] in Serum or Plasmaon 11-23-2020 Iron binding capacity [Mass/Vol] 449 ug/dL 255-450 [facility] Iron saturation [Mass Fracti on] in Serum or Plasmaon 11-23-2020 Iron saturation [Mass fraction] 4.0 % 20-50 [facility] Ketones Auto test strip (U) [Mass/Vol]on 11-23-2020 Ketones (U) [Mass/Vol] Negative Negative [facility] - Microbiology an d Antimicrobial susceptibilityon 11-23-2020 SARS-CoV-2 (COVID-19) RNA ADITI+probe Ql (Unsp spec) N/A [facility] Metabolic Panelon 11-23-2020 Magnesium [Mass/Vol] 1.8 mg/dL 1.6-2.6 [facility] Nitrite Test strip Ql (U)on 11-23-2020 Nitrite Ql (U) Positive Negative [facility] Otheron 11-23-2020 Absolute Reticulocyte Count 0.104 10*6/uL 0.024-0.08 4 [facility] Cobalamin (Vitamin B12) [Mass/Vol] 275 pg/mL 180-914 [facility] Percent Reticulocyte Count 2.6 % 0.5-1.5 [facility] Coronavirus 2019 PCR Interp N/A [facility] SARS Antigen (LFIA) [facility] Crenated Cell Slight [facility] GFR/1.73 sq M.predicted MDRD (S/P/Bld) [Vol rate/Area] > 60 mL/Min [facility] Comment on above: GFR estimated refere nce range: According to KDOQI guidelines, <60 ml/min/1.73m2 is sufficient to diagnose a patient with chronic kidney disease. Microcytosis Moderate [facility] Nucleated RBC/100 WBC (Bld) [Ratio] 0.1 % 0-0.5 [facility] Creatinine Clearance (Chem 74.80 [facility] Platelet Morphology Comment Normal Normal [facility] Poikilocytosis Slight [facility] Schistocytes Rare [facility] Ovalocyte detectionon 2020 Ovalocytes LM Ql (Bld) Slight Fi [facility] Platelet poor plasma interna tional normalized ratio (INR) by coagulation assay (relaton 11-23-2020 INR Coag (PPP) [Relative time] 16.6 {INR} [facility] Comment on above: [...] 11-23-2020 Protein (U) [Mass/Vol] Negative Negative Fi [facility] RBC morphologyon 11-23-2020 RBC morphology finding Nom (Bld) N/A [facility] Serum or plasma calcium jackie urement (mass/volume)on 11-23-2020 Calcium [Mass/Vol] 8.4 mg/dL 8.2-10.2 [facility] Serum or plasma cardiac trop onin I measurement (mass/volume)on 11-23-2020 Troponin I.cardiac [Mass/Vol] ng/mL 0-0.02 [facility] Comment on above: [place] Cut off value > or equal to 0.03 ng/mL in conjunction with clinical conditions of myocardial infarction.([email or web address]) Serum or plasma chloride jose antonio surement (moles/volume)on 11-23-2020 Chloride [Moles/Vol] 104 mmol/L 95-114 [facility] Serum or plasma creatine kin ase MB (CKMB)/total creatine kinase (CK) ratio by calculaon 11-23-2020 CK.MB Calc [Catalytic fraction] 2.8 % 0.00-2.50 [facility] Serum or plasma creatine kin ase MB measurement (mass/volume)on 11-23-2020 CK.MB [Mass/Vol] 1.9 ng/mL 0.6-6.3 [facility] Serum or plasma creatinine m easurement with calculation of estimated glomerular filtron 11-23-2020 Creatinine [Mass/Vol] 0.83 mg/dL 0.44-1.03 [facility] Serum or plasma glucose jackie urement (mass/volume)on 11-23-2020 Glucose [Mass/Vol] 126 mg/dL 70-100 [facility] Comment on above: ADA recommended refe rence rangeRandom Glucose Reference Range is dependent on time and content of last meal. Glucose of more than 200 mg/dL in a nonstressed, ambulatory subject supports the diagnosis of Diabetes Mellitus. Serum or plasma potassium me asurement (moles/volume)on 11-23-2020 Potassium [Moles/Vol] 3.8 mmol/L 3.5-5.1 [facility] Serum or plasma sodium measu rement (moles/volume)on 11-23-2020 Sodium [Moles/Vol] 135 mmol/L 136-146 [facility] Serum or plasma total carbon dioxide measurement (moles/volume)on 11-23-2020 CO2 [Moles/Vol] 22.0 mmol/L 22.0-30.0 [facility] Serum or plasma urea nitroge n measurement (mass/volume)on 11-23-2020 Urea nitrogen [Mass/Vol] 9 mg/dL 9-23 [facility] Specific gravity Auto test s trip (U) [Rel density]on 11-23-2020 Specific gravity (U) [Rel density] 1.007 1.001-1.03 0 [facility] Squamous epithelial cells de tection in urine sediment by light microscopyon 11-23-2020 Epithelial cells.squamous LM Ql (Urine sed) 3-4 [HPF] [facility] Target cellson 11-23-2020 Target cells LM Ql (Bld) Slight [facility] Teardrop cell detectionon Dacrocytes LM Ql (Bld) Rare [facility] Urinalysison 11-23-2020 Hyaline casts LM Ql (Urine sed) 0-8 [LPF] [facility] Urine bacteria detection by automated methodon 11-23-2020 Bacteria Auto Ql (U) 4+ None Seen [facility] Urine clarity by refractomet ry automatedon 03-27-2021 Clarity Refractometry automated (U) Clear Clear [facility] Urine culture routineon 10-29 Bacteria identified Cx Nom (U) Escherichia coli [facility] Urine glucose measurement by automated test strip (mass/volume)on 11-23-2020 Glucose Auto test strip (U) [Mass/Vol] Normal mg/dL Normal [facility] Urine hemoglobin detection b y automated test stripon 11-23-2020 Hemoglobin Auto test strip Ql (U) 3+ Negative [facility] Urine ketones measurement by automated test strip (mass/volume)on 11-23-2020 Ketones (U) [Mass/Vol] Negative Negative [facility] Urine leukocyte esterase det ection by automated test stripon 11-23-2020 Leukocyte esterase Auto test strip Ql (U) 4+ Negative [facility] Urine nitrite detection by t est stripon 11-23-2020 Nitrite Ql (U) Positive Negative [facility] Urine protein measurement by automated test strip (mass/volume)on 11-23-2020 Protein (U) [Mass/Vol] Negative Negative [facility] Urine total bilirubin detect ion by test stripon 11-23-2020 Bilirubin Ql (U) Negative Negative [facility] Urobilinogen Auto test strip (U) [Mass/Vol]on 11-23-2020 Urobilinogen (U) [Mass/Vol] Normal mg/dL Normal [facility] pH Auto test strip (U)on pH (U) 6.5 [pH] 5.0-9.0 [facility] Activated partial thrombopla stin time (aPTT) in platelet poor plasma by coagulation aon 08-16-2020 aPTT Coag (PPP) [Time] 55.8 s 23.0-35.0 [facility] Automated basophil %on 08-16 Basophils/100 WBC (Bld) 0.9 % [facility] Automated basophil counton 1 10-17-2019 Basophils (Bld) [#/Vol] 0.1 10*3/uL 0.0-0.2 [facility] Automated blood lymphocyte c ount (number/volume)on 08-16-2020 Lymphocytes (Bld) [#/Vol] 1.6 10*3/uL 1.00-4.8 [facility] Automated blood lymphocyte c ount as percentage of total leukocyteson 08-16-2020 Lymphocytes/100 WBC (Bld) 17.3 % [facility] Automated blood monocyte cou nton 08-16-2020 Monocytes (Bld) [#/Vol] 0.7 10*3/uL 0.0-0.8 [facility] Automated blood platelet cou nt (count/volume)on 08-16-2020 Platelets (Bld) [#/Vol] 305 10*3/uL 150-450 [facility] Automated blood platelet jose antonio n volume measurementon 08-16-2020 Platelet mean volume (Bld) [Entitic vol] 9.1 fL 6.3-10.7 [facility] Automated eosinophil %on Eosinophils/100 WBC (Bld) 1.6 % [facility] Automated eosinophil counton 08-16-2020 Eosinophils (Bld) [#/Vol] 0.1 10*3/uL 0.0-0.45 [facility] Automated erythrocyte distri bution width ratioon 08-16-2020 Erythrocyte distribution width (RBC) [Ratio] 18.8 % 11.9-15.3 [facility] Automated erythrocyte mean c orpuscular hemoglobin (mass per erythrocyte)on 08-16-2020 MCH (RBC) [Entitic mass] 23.9 pg 24.7-34.3 [facility] Automated erythrocyte mean c orpuscular hemoglobin concentration measurement (mass/volon 08-16-2020 MCHC (RBC) [Mass/Vol] 31.1 g/dL 32.0-35.0 [facility] Automated erythrocyte mean c orpuscular volumeon 08-16-2020 MCV (RBC) [Entitic vol] 76.9 fL 80-100 [facility] Automated erythrocytes count in urine sediment (number/area)on 08-16-2020 RBC Auto (Urine sed) [#/Area] 10-19 [HPF] [facility] Automated leukocytes count i n urine sediment (number/area)on 08-16-2020 WBC Auto (Urine sed) [#/Area] Innumerable [HPF] [facility] Automated monocyte %on 08-16 Monocytes/100 WBC (Bld) 7.6 % [facility] Automated neutrophil %on Neutrophils/100 WBC (Bld) 72.6 % [facility] Automated urine color determ inationon 08-16-2020 Color (U) Yellow Yellow [facility] Automated urine hyaline cast s count (number/volume)on 08-16-2020 Hyaline casts Auto (U) [#/Vol] None seen [LPF] [facility] Blood erythrocytes automated count (number/volume)on 08-16-2020 RBC (Bld) [#/Vol] 4.45 10*6/uL 3.60-5.00 [facility] Blood hemoglobin measurement (mass/volume)on 08-16-2020 Hemoglobin (Bld) [Mass/Vol] 10.7 g/dL 11.8-15.4 [facility] Blood leukocytes automated c ount (number/volume)on 08-16-2020 WBC (Bld) [#/Vol] 9.1 10*3/uL 3.8-11.6 [facility] Blood neutrophil count by au tomated method (number/volume)on 08-16-2020 Neutrophils (Bld) [#/Vol] 6.6 10*3/uL 1.8-7.7 [facility] COVID-19 Detected/Not Detect edon 08-16-2020 COVID-19 Detected/Not Detected Not detected Not Detecte [facility] Comment on above: This is a duplicate test result based off of the RP2.1 COVID (EUA) test performed within the Microbiology department. [facility] 08-16-2020 Natriuretic peptide B (Bld) [Mass/Vol] 1123.0 pg/mL 5-100 [facility] Casts typing in urine sedime nt by light microscopyon 08-16-2020 Casts LM Nom (Urine sed) None seen [LPF] None Seen [facility] Creatine kinase [Enzymatic a ctivity/volume] in Serum or Plasmaon 08-16-2020 CK [Catalytic activity/Vol] 72 U/L 22-269 [facility] Estimated glomerular filtrat ion rate (GFR) non- Americanon 08-16-2020 GFR/1.73 sq M predicted among non-blacks MDRD (S/P/Bld) [Vol rate/Area] 56 mL/min/{1.73_m2} [facility] Hematocrit [Volume Fraction] of Blood by Automated counton 08-16-2020 Hematocrit (Bld) [Volume fraction] 34.2 % 34.0-46.4 [facility] Hematologyon 08-16-2020 PT Coag (PPP) [Time] 144.3 s 9.0-12.9 [facility] PT Coag (PPP) [Time] 132.6 s 9.0-12.9 [facility] Lactate dehydrogenase measur ement (enzymatic activity/volume)on 08-16-2020 LDH (Unsp spec) [Catalytic activity/Vol] 268 U/L 45-190 [facility] Metabolic Panelon 08-16-2020 Magnesium [Mass/Vol] 1.8 mg/dL 1.6-2.6 [facility] Otheron 08-16-2020 Respiratory Panel (PCR) [facility] D-Dimer Quantitative (PE/DVT) < 200 ng/mL 0-243 [facility] Comment on above: The reference range for [...] sq M.predicted MDRD (S/P/Bld) [Vol rate/Area] mL/min/{1.73_m2} [facility] Comment on above: GFR estimated refere nce range: According to KDOQI guidelines, <60 ml/min/1.73m2 is sufficient to diagnose a patient with chronic kidney disease. Nucleated RBC/100 WBC (Bld) [Ratio] 0.1 % 0-0.5 [facility] Creatinine Clearance (Chem 61.68 [facility] Platelet poor plasma interna tional normalized ratio (INR) [facility] INR Coag (PPP) [Relative time] 12.6 {INR} [facility] Comment on above: Results calledat 000 7 [...] INR Coag (PPP) [Relative time] 11.6 {INR} [facility] Comment on above: Critical valueresult calledat 1717 [...] (mass/volume)on 08-16-2020 Calcium [Mass/Vol] 8.4 mg/dL 8.2-10.2 [facility] Serum or plasma cardiac trop onin I measurement (mass/volume)on 08-16-2020 Troponin I.cardiac [Mass/Vol] ng/mL 0-0.02 [facility] Comment on above: [place] Cut off value > or equal to 0.03 ng/mL in conjunction with clinical conditions of myocardial infarction.([email or web address]) Serum or plasma chloride jose antonio surement (moles/volume)on 08-16-2020 Chloride [Moles/Vol] 103 mmol/L 95-114 [facility] Serum or plasma creatine kin ase MB (CKMB)/total creatine kinase (CK) ratio by calculaon 08-16-2020 CK.MB Calc [Catalytic fraction] 3.7 0.00-2.50 [facility] Serum or plasma creatine kin ase MB measurement (mass/volume)on 08-16-2020 CK.MB [Mass/Vol] 2.7 ng/mL 0.6-6.3 [facility] Serum or plasma creatinine m easurement with calculation of estimated glomerular filtron 08-16-2020 Creatinine [Mass/Vol] 1.03 mg/dL 0.44-1.03 [facility] Serum or plasma glucose jackie urement (mass/volume)on 08-16-2020 Glucose [Mass/Vol] 120 mg/dL 70-100 [facility] Comment on above: ADA recommended refe rence rangeRandom Glucose Reference Range is dependent on time and content of last meal. Glucose of more than 200 mg/dL in a nonstressed, ambulatory subject supports the diagnosis of Diabetes Mellitus. Serum or plasma potassium me asurement (moles/volume)on 08-16-2020 Potassium [Moles/Vol] 4.3 mmol/L 3.5-5.1 [facility] Serum or plasma sodium measu rement (moles/volume)on 08-16-2020 Sodium [Moles/Vol] 140 mmol/L 136-146 [facility] Serum or plasma total carbon dioxide measurement (moles/volume)on 08-16-2020 CO2 [Moles/Vol] 25.2 mmol/L 22.0-30.0 [facility] Serum or plasma urea nitroge n measurement (mass/volume)on 08-16-2020 Urea nitrogen [Mass/Vol] 9 mg/dL - [facility] Specific gravity of Urine by Automated test stripon 08-16-2020 Specific gravity (U) [Rel density] 1.014 1.001-1.03 0 [facility] Squamous epithelial cells de tection in urine sediment by light microscopyon 08-16-2020 Epithelial cells.squamous LM Ql (Urine sed) 5-9 [HPF] [facility] Trichomonas vaginalis detect ion in urine sediment by light microscopyon 08-16-2020 T. vaginalis LM Ql (Urine sed) 3-4 [HPF] None Seen [facility] Urine bacteria detection by automated methodon 08-16-2020 Bacteria Auto Ql (U) None seen None Seen [facility] Urine clarity by refractomet ry automatedon 08-16-2020 Clarity Refractometry automated (U) Cloudy Clear [facility] Urine glucose measurement by automated test strip (mass/volume)on 08-16-2020 Glucose Auto test strip (U) [Mass/Vol] Normal mg/dL Normal [facility] Urine hemoglobin detection b y automated test stripon 08-16-2020 Hemoglobin Auto test strip Ql (U) 1+ Negative [facility] Urine ketones measurement by automated test strip (mass/volume)on 08-16-2020 Ketones (U) [Mass/Vol] Negative Negative [facility] Urine leukocyte esterase det ection by automated test stripon 08-16-2020 Leukocyte esterase Auto test strip Ql (U) 4+ Negative [facility] Urine nitrite detection by t est stripon 08-16-2020 Nitrite Ql (U) Negative Negative [facility] Urine pH measurement by auto mated test stripon 08-16-2020 pH (U) 6.5 [pH] 5.0-9.0 [facility] Urine protein measurement by automated test strip (mass/volume)on 08-16-2020 Protein (U) [Mass/Vol] Trace mg/dL Negative [facility] Urine total bilirubin detect ion by test stripon 08-16-2020 Bilirubin Ql (U) Negative Negative [facility] Urine urobilinogen measureme nt by automated test strip (mass/volume)on 08-16-2020 Urobilinogen (U) [Mass/Vol] Normal mg/dL Normal [facility] Activated partial thrombopla stin time (aPTT) in platelet poor plasma by coagulation aon 07-26-2020 aPTT Coag (PPP) [Time] 32.4 s 23.0-35.0 [facility] Automated basophil %on 07-26 Basophils/100 WBC (Bld) 1.5 % [facility] Automated basophil counton 1 09-25-2019 Basophils (Bld) [#/Vol] 0.1 10*3/uL 0.0-0.2 [facility] Automated blood lymphocyte c ount (number/volume)on 07-26-2020 Lymphocytes (Bld) [#/Vol] 1.9 10*3/uL 1.00-4.8 [facility] Automated blood lymphocyte c ount as percentage of total leukocyteson 07-26-2020 Lymphocytes/100 WBC (Bld) 24.7 % [facility] Automated blood monocyte cou nton 07-26-2020 Monocytes (Bld) [#/Vol] 0.8 10*3/uL 0.0-0.8 [facility] Automated blood platelet cou nt (count/volume)on 07-26-2020 Platelets (Bld) [#/Vol] 207 10*3/uL 150-450 [facility] Automated blood platelet jose antonio n volume measurementon 07-26-2020 Platelet mean volume (Bld) [Entitic vol] 9.5 fL 6.3-10.7 [facility] Automated eosinophil %on Eosinophils/100 WBC (Bld) 3.4 % [facility] Automated eosinophil counton 07-26-2020 Eosinophils (Bld) [#/Vol] 0.3 10*3/uL 0.0-0.45 [facility] Automated erythrocyte distri bution width ratioon 07-26-2020 Erythrocyte distribution width (RBC) [Ratio] 20.9 % 11.9-15.3 [facility] Automated erythrocyte mean c orpuscular hemoglobin (mass per erythrocyte)on 07-26-2020 MCH (RBC) [Entitic mass] 24.3 pg 24.7-34.3 [facility] Automated erythrocyte mean c orpuscular hemoglobin concentration measurement (mass/volon 07-26-2020 MCHC (RBC) [Mass/Vol] 31.3 g/dL 32.0-35.0 [facility] Automated erythrocyte mean c orpuscular volumeon 07-26-2020 MCV (RBC) [Entitic vol] 77.8 fL 80-100 [facility] Automated monocyte %on 07-26 Monocytes/100 WBC (Bld) 10.5 % [facility] Automated neutrophil %on Neutrophils/100 WBC (Bld) 59.9 % [facility] Blood anisocytosis detection on 07-26-2020 Anisocytosis Ql (Bld) Marked [facility] Blood erythrocytes automated count (number/volume)on 07-26-2020 RBC (Bld) [#/Vol] 4.84 10*6/uL 3.60-5.00 [facility] Blood hemoglobin measurement (mass/volume)on 07-26-2020 Hemoglobin (Bld) [Mass/Vol] 11.8 g/dL 11.8-15.4 [facility] Blood leukocytes automated c ount (number/volume)on 07-26-2020 WBC (Bld) [#/Vol] 7.8 10*3/uL 4.5-11.0 [facility] Blood neutrophil count by au tomated method (number/volume)on 07-26-2020 Neutrophils (Bld) [#/Vol] 4.7 10*3/uL 1.8-7.7 [facility] Body fluid albumin measureme nt (mass/volume)on 07-26-2020 Albumin (Body fld) [Mass/Vol] 3.5 g/dL 3.2-5.5 [facility] Creatine kinase [Enzymatic a ctivity/volume] in Serum or Plasmaon 07-26-2020 CK [Catalytic activity/Vol] 58 U/L 22 [facility] Estimated glomerular filtrat ion rate (GFR) non- Americanon 07-26-2020 GFR/1.73 sq M predicted among non-blacks MDRD (S/P/Bld) [Vol rate/Area] mL/min/{1.73_m2} [facility] Hematocrit [Volume Fraction] of Blood by Automated counton 07-26-2020 Hematocrit (Bld) [Volume fraction] 37.7 % 34.0-46.4 [facility] Hematologyon 07-26-2020 Platelets (Bld) [#/Vol] Normal Normal [facility] PT Coag (PPP) [Time] 16.1 s 9.0-12.9 [facility] Hypochromia detectionon 07-01 Hypochromia Ql (Bld) Slight [facility] Metabolic Panelon 07-26-2020 Magnesium [Mass/Vol] 1.7 mg/dL 1.6-2.6 [facility] Otheron 07-26-2020 GFR/1.73 sq M.predicted MDRD (S/P/Bld) [Vol rate/Area] mL/min/{1.73_m2} [facility] Comment on above: GFR estimated refere nce range: According to KDOQI guidelines, <60 ml/min/1.73m2 is sufficient to diagnose a patient with chronic kidney disease. Microcytosis Slight [facility] Nucleated RBC/100 WBC (Bld) [Ratio] 0.1 % 0-0.5 [facility] Creatinine Clearance (Chem 66.06 [facility] Platelet Morphology Comment Normal Normal [facility] Platelet poor plasma interna tional normalized ratio (INR) by coagulation assay (relaton 07-26-2020 INR Coag (PPP) [Relative time] 1.4 {INR} [facility] Comment on above: INR Therapeutic Rang e [...] Plasmaon 07-26-2020 Protein [Mass/Vol] 6.4 g/dL 6.1-7.9 [facility] RBC morphologyon 07-26-2020 RBC morphology finding Nom (Bld) N/A [facility] Serum globulin measurement b y calculation (mass/volume)on 07-26-2020 Globulin (S) [Mass/Vol] 2.9 g/dL [facility] Serum or plasma alanine hernandez otransferase measurement without P-5'-P (enzymatic activion 07-26-2020 ALT No additional P-5'-P [Catalytic activity/Vol] 21 U/L 10-60 [facility] Serum or plasma albumin/glob ulin mass ratioon 07-26-2020 Albumin/Globulin [Mass ratio] 1.2 {ratio} [facility] Serum or plasma alkaline rosanna sphatase measurement (enzymatic activity/volume)on 07-26-2020 ALP [Catalytic activity/Vol] 153 U/L 32-92 [facility] Serum or plasma aspartate am inotransferase measurement (enzymatic activity/volume)on 07-26-2020 AST [Catalytic activity/Vol] 22 U/L 10-42 [facility] Serum or plasma calcium jackie urement (mass/volume)on 07-26-2020 Calcium [Mass/Vol] 8.7 mg/dL 8.2-10.2 [facility] Serum or plasma cardiac trop onin I measurement (mass/volume)on 07-26-2020 Troponin I.cardiac [Mass/Vol] ng/mL 0-0.02 [facility] Comment on above: [place] Cut off value > or equal to 0.03 ng/mL in conjunction with clinical conditions of myocardial infarction.([email or web address]) Serum or plasma chloride jose antonio surement (moles/volume)on 07-26-2020 Chloride [Moles/Vol] 106 mmol/L 95-114 [facility] Serum or plasma creatine kin ase MB (CKMB)/total creatine kinase (CK) ratio by calculaon 07-26-2020 CK.MB Calc [Catalytic fraction] 3.7 0.00-2.50 [facility] Serum or plasma creatine kin ase MB measurement (mass/volume)on 07-26-2020 CK.MB [Mass/Vol] 2.2 ng/mL 0.6-6.3 [facility] Serum or plasma creatinine m easurement with calculation of estimated glomerular filtron 07-26-2020 Creatinine [Mass/Vol] 0.96 mg/dL 0.44-1.03 [facility] Serum or plasma glucose jackie urement (mass/volume)on 07-26-2020 Glucose [Mass/Vol] 96 mg/dL 70-100 [facility] Comment on above: ADA recommended refe rence rangeRandom Glucose Reference Range is dependent on time and content of last meal. Glucose of more than 200 mg/dL in a nonstressed, ambulatory subject supports the diagnosis of Diabetes Mellitus. Serum or plasma potassium me asurement (moles/volume)on 07-26-2020 Potassium [Moles/Vol] 4.2 mmol/L 3.5-5.1 [facility] Serum or plasma sodium measu rement (moles/volume)on 07-26-2020 Sodium [Moles/Vol] 138 mmol/L 136-146 [facility] Serum or plasma total biliru bin measurement (mass/volume)on 07-26-2020 Bilirubin [Mass/Vol] 0.3 mg/dL 0.3-1.2 [facility] Serum or plasma total carbon dioxide measurement (moles/volume)on 07-26-2020 CO2 [Moles/Vol] 22.5 mmol/L 22.0-30.0 [facility] Serum or plasma urea nitroge n measurement (mass/volume)on 07-26-2020 Urea nitrogen [Mass/Vol] 14 mg/dL 05-22 [facility] Activated partial thrombopla stin time (aPTT) in platelet poor plasma by coagulation aon 07-22-2020 aPTT Coag (PPP) [Time] 36.7 s 23.0-35.0 [facility] basophil %on 07-22 Basophils/100 WBC (Bld) 1.1 % [facility] Automated basophil counton 1 09-21-2019 Basophils (Bld) [#/Vol] 0.1 10*3/uL 0.0-0.2 [facility] Automated blood lymphocyte c ount (number/volume)on 07-22-2020 Lymphocytes (Bld) [#/Vol] 1.8 10*3/uL 1.00-4.8 [facility] Automated blood lymphocyte c ount as percentage of total leukocyteson 07-22-2020 Lymphocytes/100 WBC (Bld) 18.8 % [facility] Automated blood monocyte cou nton 07-22-2020 Monocytes (Bld) [#/Vol] 0.9 10*3/uL 0.0-0.8 [facility] Automated blood platelet cou nt (count/volume)on 07-22-2020 Platelets (Bld) [#/Vol] 201 10*3/uL 150-450 [facility] Automated blood platelet jose antonio n volume measurementon 07-22-2020 Platelet mean volume (Bld) [Entitic vol] 9.4 fL 6.3-10.7 [facility] Automated eosinophil %on Eosinophils/100 WBC (Bld) 2.1 % [facility] Automated eosinophil counton 07-22-2020 Eosinophils (Bld) [#/Vol] 0.2 10*3/uL 0.0-0.45 [facility] Automated erythrocyte distri bution width ratioon 07-22-2020 Erythrocyte distribution width (RBC) [Ratio] 20.7 % 11.9-15.3 [facility] Automated erythrocyte mean c orpuscular hemoglobin (mass per erythrocyte)on 07-22-2020 MCH (RBC) [Entitic mass] 24.0 pg 24.7-34.3 [facility] Automated erythrocyte mean c orpuscular hemoglobin concentration measurement (mass/volon 07-22-2020 MCHC (RBC) [Mass/Vol] 31.1 g/dL 32.0-35.0 [facility] Automated erythrocyte mean c orpuscular volumeon 07-22-2020 MCV (RBC) [Entitic vol] 77.1 fL 80-100 [facility] Automated monocyte %on 07-22 Monocytes/100 WBC (Bld) 9.4 % [facility] Automated neutrophil %on Neutrophils/100 WBC (Bld) 68.6 % [facility] Blood erythrocytes automated count (number/volume)on 07-22-2020 RBC (Bld) [#/Vol] 4.68 10*6/uL 3.60-5.00 [facility] Blood hemoglobin measurement (mass/volume)on 07-22-2020 Hemoglobin (Bld) [Mass/Vol] 11.2 g/dL 11.8-15.4 [facility] Blood leukocytes automated c ount (number/volume)on 07-22-2020 WBC (Bld) [#/Vol] 9.5 10*3/uL 4.5-11.0 [facility] Blood neutrophil count by au tomated method (number/volume)on 07-22-2020 Neutrophils (Bld) [#/Vol] 6.5 10*3/uL 1.8-7.7 [facility] Body fluid albumin measureme nt (mass/volume)on 07-22-2020 Albumin (Body fld) [Mass/Vol] 3.5 g/dL 3.2-5.5 [facility] COVID-19 SOFIAon 07-22-2020 COVID-19 MARANDA Negative Negative [facility] Comment on above: This is a duplicate test result based off of the Maranda SARS Antigen (CAIT) test performed within the Microbiology department. [facility] 07-22-2020 Natriuretic peptide B (Bld) [Mass/Vol] 508.0 pg/mL 5-100 [facility] Estimated glomerular filtrat ion rate (GFR) non- Americanon 07-22-2020 GFR/1.73 sq M predicted among non-blacks MDRD (S/P/Bld) [Vol rate/Area] 58 mL/min/{1.73_m2} [facility] Hematocrit [Volume Fraction] of Blood by Automated counton 07-22-2020 Hematocrit (Bld) [Volume fraction] 36.1 % 34.0-46.4 [facility] Hematologyon 07-22-2020 PT Coag (PPP) [Time] 33.6 s 9.0-12.9 [facility] Metabolic Panelon 07-22-2020 Magnesium [Mass/Vol] 1.9 mg/dL 1.6-2.6 [facility] Otheron 07-22-2020 SARS Antigen (LFIA) [facility] GFR/1.73 sq M.predicted MDRD (S/P/Bld) [Vol rate/Area] mL/min/{1.73_m2} [facility] Comment on above: GFR estimated refere nce range: According to KDOQI guidelines, <60 ml/min/1.73m2 is sufficient to diagnose a patient with chronic kidney disease. Nucleated RBC/100 WBC (Bld) [Ratio] 0.0 % 0-0.5 [facility] Creatinine Clearance (Chem 64.10 [facility] Platelet poor plasma interna tional normalized ratio (INR) by coagulation assay (relaton 07-22-2020 INR Coag (PPP) [Relative time] 3.0 {INR} [facility] Comment on above: INR Therapeutic Rang e [...] Plasmaon 07-22-2020 Protein [Mass/Vol] 6.3 g/dL 6.1-7.9 [facility] Serum globulin measurement b y calculation (mass/volume)on 07-22-2020 Globulin (S) [Mass/Vol] 2.8 g/dL [facility] Serum or plasma alanine hernandez otransferase measurement without P-5'-P (enzymatic activion 07-22-2020 ALT No additional P-5'-P [Catalytic activity/Vol] 32 U/L [facility] Serum or plasma albumin/glob ulin mass ratioon 07-22-2020 Albumin/Globulin [Mass ratio] 1.3 {ratio} [facility] Serum or plasma alkaline rosanna sphatase measurement (enzymatic activity/volume)on 07-22-2020 ALP [Catalytic activity/Vol] 145 U/L [facility] Serum or plasma aspartate am inotransferase measurement (enzymatic activity/volume)on 07-22-2020 AST [Catalytic activity/Vol] 34 U/L [facility] Serum or plasma calcium jackie urement (mass/volume)on 07-22-2020 Calcium [Mass/Vol] 8.6 mg/dL 8.2-10.2 [facility] Serum or plasma cardiac trop onin I measurement (mass/volume)on 07-22-2020 Troponin I.cardiac [Mass/Vol] ng/mL 0-0.02 [facility] Comment on above: [place] Cut off value > or equal to 0.03 ng/mL in conjunction with clinical conditions of myocardial infarction.([email or web address]) Serum or plasma chloride jose antonio surement (moles/volume)on 07-22-2020 Chloride [Moles/Vol] 102 mmol/L 95-114 [facility] Serum or plasma creatinine m easurement with calculation of estimated glomerular filtron 07-22-2020 Creatinine [Mass/Vol] 1.01 mg/dL 0.44-1.03 [facility] Serum or plasma glucose jackie urement (mass/volume)on 07-22-2020 Glucose [Mass/Vol] 100 mg/dL 70-100 [facility] Comment on above: ADA recommended refe rence rangeRandom Glucose Reference Range is dependent on time and content of last meal. Glucose of more than 200 mg/dL in a nonstressed, ambulatory subject supports the diagnosis of Diabetes Mellitus. Serum or plasma potassium me asurement (moles/volume)on 07-22-2020 Potassium [Moles/Vol] 4.5 mmol/L 3.5-5.1 [facility] Serum or plasma sodium measu rement (moles/volume)on 07-22-2020 Sodium [Moles/Vol] 138 mmol/L 136-146 [facility] Serum or plasma total biliru bin measurement (mass/volume)on 07-22-2020 Bilirubin [Mass/Vol] 0.3 mg/dL 0.3-1.2 [facility] Serum or plasma total carbon dioxide measurement (moles/volume)on 07-22-2020 CO2 [Moles/Vol] 24.6 mmol/L 22.0-30.0 [facility] Serum or plasma urea nitroge n measurement (mass/volume)on 07-22-2020 Urea nitrogen [Mass/Vol] 15 mg/dL 05-22 [facility] Activated partial thrombopla stin time (aPTT) in platelet poor plasma by coagulation aon 07-19-2020 aPTT Coag (PPP) [Time] 41.0 s 23.0-35.0 Fi [facility] Albumin [Mass/volume] in Ser um or Plasmaon 07-19-2020 Albumin [Mass/Vol] 3.9 g/dL 3.2-5.5 [facility] Automated basophil %on 07-19 Basophils/100 WBC (Bld) 1.7 % [facility] Automated basophil counton 1 09-18-2019 Basophils (Bld) [#/Vol] 0.1 10*3/uL 0.0-0.2 [facility] Automated blood lymphocyte c ount (number/volume)on 07-19-2020 Lymphocytes (Bld) [#/Vol] 2.9 10*3/uL 1.00-4.8 [facility] Automated blood lymphocyte c ount as percentage of total leukocyteson 07-19-2020 Lymphocytes/100 WBC (Bld) 34.7 % [facility] Automated blood monocyte cou nton 07-19-2020 Monocytes (Bld) [#/Vol] 0.9 10*3/uL 0.0-0.8 [facility] Automated blood platelet cou nt (count/volume)on 07-19-2020 Platelets (Bld) [#/Vol] 221 10*3/uL 150-450 [facility] Automated blood platelet jose antonio n volume measurementon 07-19-2020 Platelet mean volume (Bld) [Entitic vol] 9.4 fL 6.3-10.7 [facility] Automated eosinophil %on Eosinophils/100 WBC (Bld) 3.2 % [facility] Automated eosinophil counton 07-19-2020 Eosinophils (Bld) [#/Vol] 0.3 10*3/uL 0.0-0.45 [facility] Automated erythrocyte distri bution width ratioon 07-19-2020 Erythrocyte distribution width (RBC) [Ratio] 21.2 % 11.9-15.3 [facility] Automated erythrocyte mean c orpuscular hemoglobin (mass per erythrocyte)on 07-19-2020 MCH (RBC) [Entitic mass] 24.1 pg 24.7-34.3 [facility] Automated erythrocyte mean c orpuscular hemoglobin concentration measurement (mass/volon 07-19-2020 MCHC (RBC) [Mass/Vol] 31.0 g/dL 32.0-35.0 [facility] Automated erythrocyte mean c orpuscular volumeon 07-19-2020 MCV (RBC) [Entitic vol] 77.7 fL 80-100 [facility] Automated erythrocytes count in urine sediment (number/area)on 07-19-2020 RBC Auto (Urine sed) [#/Area] 10-19 [HPF] [facility] Automated leukocytes count i n urine sediment (number/area)on 07-19-2020 WBC Auto (Urine sed) [#/Area] Innumerable [HPF] [facility] Automated monocyte %on 07-19 Monocytes/100 WBC (Bld) 11.0 % [facility] Automated neutrophil %on Neutrophils/100 WBC (Bld) 49.4 % [facility] Automated urine color determ inationon 07-19-2020 Color (U) Yellow Yellow [facility] Blood anisocytosis detection on 07-19-2020 Anisocytosis Ql (Bld) Marked [facility] Blood erythrocytes automated count (number/volume)on 07-19-2020 RBC (Bld) [#/Vol] 5.04 10*6/uL 3.60-5.00 [facility] Blood hemoglobin measurement (mass/volume)on 07-19-2020 Hemoglobin (Bld) [Mass/Vol] 12.1 g/dL 11.8-15.4 [facility] Blood leukocytes automated c ount (number/volume)on 07-19-2020 WBC (Bld) [#/Vol] 8.4 10*3/uL 4.5-11.0 [facility] Blood neutrophil count by au tomated method (number/volume)on 07-19-2020 Neutrophils (Bld) [#/Vol] 4.2 10*3/uL 1.8-7.7 [facility]acon 07-19-2020 Natriuretic peptide B (Bld) [Mass/Vol] 357.0 pg/mL 5-100 [facility] Creatine kinase [Enzymatic a ctivity/volume] in Serum or Plasmaon 07-19-2020 CK [Catalytic activity/Vol] 81 U/L 22-269 [facility] Estimated glomerular filtrat ion rate (GFR) non- Americanon 07-19-2020 GFR/1.73 sq M predicted among non-blacks MDRD (S/P/Bld) [Vol rate/Area] mL/min/{1.73_m2} [facility] Hematocrit [Volume Fraction] of Blood by Automated counton 07-19-2020 Hematocrit (Bld) [Volume fraction] 39.2 % 34.0-46.4 [facility] Hematologyon 07-19-2020 Platelets (Bld) [#/Vol] Normal Normal [facility] PT Coag (PPP) [Time] 51.9 s 9.0-12.9 [facility] Metabolic Panelon 07-19-2020 Magnesium [Mass/Vol] 2.1 mg/dL 1.6-2.6 [facility] Otheron 07-19-2020 Acanthocytes Slight [facility] GFR/1.73 sq M.predicted MDRD (S/P/Bld) [Vol rate/Area] mL/min/{1.73_m2} [facility] Comment on above: GFR estimated refere nce range: According to KDOQI guidelines, <60 ml/min/1.73m2 is sufficient to diagnose a patient with chronic kidney disease. Nucleated RBC/100 WBC (Bld) [Ratio] 0.1 % 0-0.5 [facility] Creatinine Clearance (Chem 67.89 [facility] Platelet Morphology Comment Normal Normal [facility] Poikilocytosis Slight [facility] Schistocytes Slight [facility] Ovalocyte detectionon 2019 Ovalocytes LM Ql (Bld) Moderate [facility] Platelet poor plasma interna tional normalized ratio (INR) by coagulation assay (relaton 07-19-2020 INR Coag (PPP) [Relative time] 4.6 {INR} [facility] Comment on above: INR Therapeutic Rang e [...] Plasmaon 07-19-2020 Protein [Mass/Vol] 7.1 g/dL 6.1-7.9 [facility] RBC morphologyon 07-19-2020 RBC morphology finding Nom (Bld) N/A [facility] Serum globulin measurement b y calculation (mass/volume)on 07-19-2020 Globulin (S) [Mass/Vol] 3.2 g/dL [facility] Serum or plasma alanine hernandez otransferase measurement without P-5'-P (enzymatic activion 07-19-2020 ALT No additional P-5'-P [Catalytic activity/Vol] 32 U/L [facility] Serum or plasma albumin/glob ulin mass ratioon 07-19-2020 Albumin/Globulin [Mass ratio] 1.2 {ratio} [facility] Serum or plasma alkaline rosanna sphatase measurement (enzymatic activity/volume)on 07-19-2020 ALP [Catalytic activity/Vol] 152 U/L [facility] Serum or plasma aspartate am inotransferase measurement (enzymatic activity/volume)on 07-19-2020 AST [Catalytic activity/Vol] 42 U/L [facility] Serum or plasma calcium jackie urement (mass/volume)on 07-19-2020 Calcium [Mass/Vol] 9.0 mg/dL 8.2-10.2 [facility] Serum or plasma cardiac trop onin I measurement (mass/volume)on 07-19-2020 Troponin I.cardiac [Mass/Vol] ng/mL 0-0.02 [facility] Comment on above: [place] Cut off value > or equal to 0.03 ng/mL in conjunction with clinical conditions of myocardial infarction.([email or web address]) Serum or plasma chloride jose antonio surement (moles/volume)on 07-19-2020 Chloride [Moles/Vol] 104 mmol/L 95-114 [facility] Serum or plasma creatine kin ase MB (CKMB)/total creatine kinase (CK) ratio by calculaon 07-19-2020 CK.MB Calc [Catalytic fraction] 3.3 0.00-2.50 [facility] Serum or plasma creatine kin ase MB measurement (mass/volume)on 07-19-2020 CK.MB [Mass/Vol] 2.7 ng/mL 0.6-6.3 [facility] Serum or plasma creatinine m easurement with calculation of estimated glomerular filtron 07-19-2020 Creatinine [Mass/Vol] 0.94 mg/dL 0.44-1.03 [facility] Serum or plasma glucose jackie urement (mass/volume)on 07-19-2020 Glucose [Mass/Vol] 98 mg/dL 70-100 [facility] Comment on above: ADA recommended refe rence rangeRandom Glucose Reference Range is dependent on time and content of last meal. Glucose of more than 200 mg/dL in a nonstressed, ambulatory subject supports the diagnosis of Diabetes Mellitus. Serum or plasma potassium me asurement (moles/volume)on 07-19-2020 Potassium [Moles/Vol] 4.7 mmol/L 3.5-5.1 [facility] Serum or plasma sodium measu rement (moles/volume)on 07-19-2020 Sodium [Moles/Vol] 139 mmol/L 136-146 [facility] Serum or plasma total biliru bin measurement (mass/volume)on 07-19-2020 Bilirubin [Mass/Vol] 0.5 mg/dL 0.3-1.2 [facility] Serum or plasma total carbon dioxide measurement (moles/volume)on 07-19-2020 CO2 [Moles/Vol] 21.9 mmol/L 22.0-30.0 [facility] Serum or plasma urea nitroge n measurement (mass/volume)on 07-19-2020 Urea nitrogen [Mass/Vol] 17 mg/dL 9- [facility] Specific gravity of Urine by Automated test stripon 07-19-2020 Specific gravity (U) [Rel density] 1.015 1.001-1.03 0 [facility] Squamous epithelial cells de tection in urine sediment by light microscopyon 07-19-2020 Epithelial cells.squamous LM Ql (Urine sed) 0-1 [HPF] [facility] Urinalysison 07-19-2020 Hyaline casts LM Ql (Urine sed) 0-8 [LPF] [facility] Urine bacteria detection by automated methodon 07-19-2020 Bacteria Auto Ql (U) None seen None Seen [facility] Urine clarity by refractomet ry automatedon 07-19-2020 Clarity Refractometry automated (U) Clear Clear [facility] Urine culture routineon 07-01 Bacteria identified Cx Nom (U) 2 Days [facility] Urine glucose measurement by automated test strip (mass/volume)on 07-19-2020 Glucose Auto test strip (U) [Mass/Vol] Normal mg/dL Normal [facility] Urine hemoglobin detection b y automated test stripon 07-19-2020 Hemoglobin Auto test strip Ql (U) 1+ Negative [facility] Urine ketones measurement by automated test strip (mass/volume)on 07-19-2020 Ketones (U) [Mass/Vol] [facility]rine leukocyte esterase det ection by automated test stripon 07-19-2020 Leukocyte esterase Auto test strip Ql (U) 4+ Negative [facility] Urine nitrite detection by t est stripon 07-19-2020 Nitrite Ql (U) Negative Negative [facility] Urine pH measurement by auto mated test stripon 07-19-2020 pH (U) 6.0 [pH] 5.0-9.0 [facility] Urine protein measurement by automated test strip (mass/volume)on 07-19-2020 Protein (U) [Mass/Vol] Negative Negative Fi [facility] Urine total bilirubin detect ion by test stripon 07-19-2020 Bilirubin Ql (U) Negative Negative [facility] Urine urobilinogen measureme nt by automated test strip (mass/volume)on 07-19-2020 Urobilinogen (U) [Mass/Vol] Normal mg/dL Normal [facility] Activated partial thrombopla stin time (aPTT) in platelet poor plasma by coagulation aon 06-15-2020 aPTT Coag (PPP) [Time] 30.9 s 23.0-35.0 Fi [facility] Automated basophil %on 06-15 Basophils/100 WBC (Bld) 1.0 % [facility] Automated basophil counton 1 Basophils (Bld) [#/Vol] 0.1 10*3/uL 0.0-0.2 [facility] Automated blood lymphocyte c ount (number/volume)on 06-15-2020 Lymphocytes (Bld) [#/Vol] 1.1 10*3/uL 1.00-4.8 [facility] Automated blood lymphocyte c ount as percentage of total leukocyteson 06-15-2020 Lymphocytes/100 WBC (Bld) 8.1 % [facility] Automated blood monocyte cou nton 06-15-2020 Monocytes (Bld) [#/Vol] 1.7 10*3/uL 0.0-0.8 [facility] Automated blood platelet cou nt (count/volume)on 06-15-2020 Platelets (Bld) [#/Vol] 170 10*3/uL 150-450 [facility] Automated blood platelet jose antonio n volume measurementon 06-15-2020 Platelet mean volume (Bld) [Entitic vol] 9.5 fL 6.3-10.7 [facility] Automated eosinophil %on Eosinophils/100 WBC (Bld) 0.1 % [facility] Automated eosinophil counton 06-15-2020 Eosinophils (Bld) [#/Vol] 0.0 10*3/uL 0.0-0.45 [facility] Automated erythrocyte distri bution width ratioon 06-15-2020 Erythrocyte distribution width (RBC) [Ratio] 26.0 % 11.9-15.3 [facility] Automated erythrocyte mean c orpuscular hemoglobin (mass per erythrocyte)on 06-15-2020 MCH (RBC) [Entitic mass] 23.8 pg 24.7-34.3 [facility] Automated erythrocyte mean c orpuscular hemoglobin concentration measurement (mass/volon 06-15-2020 MCHC (RBC) [Mass/Vol] 30.8 g/dL 32.0-35.0 [facility] Automated erythrocyte mean c orpuscular volumeon 06-15-2020 MCV (RBC) [Entitic vol] 77.4 fL 80-100 [facility] Automated monocyte %on 06-15 Monocytes/100 WBC (Bld) 12.7 % [facility] Automated neutrophil %on Neutrophils/100 WBC (Bld) 78.1 % [facility] Blood anisocytosis detection on 06-15-2020 Anisocytosis Ql (Bld) Moderate [facility] Blood erythrocytes automated count (number/volume)on 06-15-2020 RBC (Bld) [#/Vol] 4.75 10*6/uL 3.60-5.00 [facility] Blood hemoglobin measurement (mass/volume)on 06-15-2020 Hemoglobin (Bld) [Mass/Vol] 11.3 g/dL 11.8-15.4 [facility] Blood leukocytes automated c ount (number/volume)on 06-15-2020 WBC (Bld) [#/Vol] 13.3 10*3/uL 4.5-11.0 [facility] Blood neutrophil count by au tomated method (number/volume)on 06-15-2020 Neutrophils (Bld) [#/Vol] 10.4 10*3/uL 1.8-7.7 [facility] Body fluid albumin measureme nt (mass/volume)on 06-15-2020 Albumin (Body fld) [Mass/Vol] 3.0 g/dL 3.2-5.5 [facility] COVID-19 Detected/Not Detect edon 06-15-2020 COVID-19 Detected/Not Detected Not detected Not Detecte [facility] Comment on above: This is a duplicate test result based off of the RP2.1 COVID (EUA) test performed within the Microbiology department. [facility] 06-15-2020 Natriuretic peptide B (Bld) [Mass/Vol] 2832.0 pg/mL 5-100 [facility] Creatine kinase [Enzymatic a ctivity/volume] in Serum or Plasmaon 06-15-2020 CK [Catalytic activity/Vol] 125 U/L 22-269 [facility] Estimated glomerular filtrat ion rate (GFR) non- Americanon 06-15-2020 GFR/1.73 sq M predicted among non-blacks MDRD (S/P/Bld) [Vol rate/Area] 53 mL/min/{1.73_m2} [facility] Hematocrit [Volume Fraction] of Blood by Automated counton 06-15-2020 Hematocrit (Bld) [Volume fraction] 36.8 % 34.0-46.4 [facility] Hematologyon 06-15-2020 Platelets (Bld) [#/Vol] Normal Normal [facility] PT Coag (PPP) [Time] 51.7 s 9.0-12.9 [facility] Otheron 06-15-2020 Respiratory Panel (PCR) [facility] Crenated Cell Slight [facility] GFR/1.73 sq M.predicted MDRD (S/P/Bld) [Vol rate/Area] mL/min/{1.73_m2} [facility] Comment on above: GFR estimated refere nce range: According to KDOQI guidelines, <60 ml/min/1.73m2 is sufficient to diagnose a patient with chronic kidney disease. Microcytosis Moderate [facility] Nucleated RBC/100 WBC (Bld) [Ratio] 0.0 % 0-0.5 [facility] Creatinine Clearance (Chem 60.88 [facility] Platelet Morphology Comment Normal Normal [facility] Poikilocytosis Slight [facility] Schistocytes Slight [facility] Ovalocyte detectionon 2019 Ovalocytes LM Ql (Bld) Slight Fi [facility] Platelet poor plasma interna tional normalized ratio (INR) by coagulation assay (relaton 06-15-2020 INR Coag (PPP) [Relative time] 4.6 {INR} [facility] Comment on above: INR Therapeutic Rang e [...] Plasmaon 06-15-2020 Protein [Mass/Vol] 5.9 g/dL 6.1-7.9 [facility] RBC morphologyon 06-15-2020 RBC morphology finding Nom (Bld) N/A [facility] Serum globulin measurement b y calculation (mass/volume)on 06-15-2020 Globulin (S) [Mass/Vol] 2.9 g/dL [facility] Serum or plasma alanine hernandez otransferase measurement without P-5'-P (enzymatic activion 06-15-2020 ALT No additional P-5'-P [Catalytic activity/Vol] 14 U/L 10 [facility] Serum or plasma albumin/glob ulin mass ratioon 06-15-2020 Albumin/Globulin [Mass ratio] 1.0 {ratio} [facility] Serum or plasma alkaline rosanna sphatase measurement (enzymatic activity/volume)on 06-15-2020 ALP [Catalytic activity/Vol] 150 U/L 3292 [facility] Serum or plasma aspartate am inotransferase measurement (enzymatic activity/volume)on 06-15-2020 AST [Catalytic activity/Vol] 28 U/L 10 [facility] Serum or plasma calcium jackie urement (mass/volume)on 06-15-2020 Calcium [Mass/Vol] 8.6 mg/dL 8.2-10.2 [facility] Serum or plasma cardiac trop onin I measurement (mass/volume)on 06-15-2020 Troponin I.cardiac [Mass/Vol] 0.03 ng/mL 0-0.02 [facility] Comment on above: [place] Cut off value > or equal to 0.03 ng/mL in conjunction with clinical conditions of myocardial infarction.([email or web address]) Serum or plasma chloride jose antonio surement (moles/volume)on 06-15-2020 Chloride [Moles/Vol] 109 mmol/L 95-114 [facility] Serum or plasma creatine kin ase MB (CKMB)/total creatine kinase (CK) ratio by calculaon 06-15-2020 CK.MB Calc [Catalytic fraction] 1.5 0.00-2.50 [facility] Serum or plasma creatine kin ase MB measurement (mass/volume)on 06-15-2020 CK.MB [Mass/Vol] 1.9 ng/mL 0.6-6.3 [facility] Serum or plasma creatinine m easurement with calculation of estimated glomerular filtron 06-15-2020 Creatinine [Mass/Vol] 1.09 mg/dL 0.44-1.03 [facility] Serum or plasma glucose jackie urement (mass/volume)on 06-15-2020 Glucose [Mass/Vol] 139 mg/dL 70-100 [facility] Comment on above: ADA recommended refe rence rangeRandom Glucose Reference Range is dependent on time and content of last meal. Glucose of more than 200 mg/dL in a nonstressed, ambulatory subject supports the diagnosis of Diabetes Mellitus. Serum or plasma potassium me asurement (moles/volume)on 06-15-2020 Potassium [Moles/Vol] 4.6 mmol/L 3.5-5.1 [facility] Serum or plasma sodium measu rement (moles/volume)on 06-15-2020 Sodium [Moles/Vol] 142 mmol/L 136-146 [facility] Serum or plasma total biliru bin measurement (mass/volume)on 06-15-2020 Bilirubin [Mass/Vol] 0.7 mg/dL 0.3-1.2 [facility] Serum or plasma total carbon dioxide measurement (moles/volume)on 06-15-2020 CO2 [Moles/Vol] 23.7 mmol/L 22.0-30.0 [facility] Serum or plasma urea nitroge n measurement (mass/volume)on 06-15-2020 Urea nitrogen [Mass/Vol] 6 mg/dL 9- [facility] Estimated glomerular filtrat ion rate (GFR) non- Americanon 06-07-2020 GFR/1.73 sq M predicted among non-blacks MDRD (S/P/Bld) [Vol rate/Area] mL/min/{1.73_m2} [facility] Otheron 06-07-2020 GFR/1.73 sq M.predicted MDRD (S/P/Bld) [Vol rate/Area] mL/min/{1.73_m2} [facility] Comment on above: GFR estimated refere nce range: According to KDOQI guidelines, <60 ml/min/1.73m2 is sufficient to diagnose a patient with chronic kidney disease. Pharmacy Creatinine Clearance (Chem 75.20 [facility] Serum or plasma calcium jackie urement (mass/volume)on 06-07-2020 Calcium [Mass/Vol] 8.2 mg/dL 8.2-10.2 [facility] Serum or plasma chloride jose antonio surement (moles/volume)on 06-07-2020 Chloride [Moles/Vol] 110 mmol/L 95-114 [facility] Serum or plasma creatinine m easurement with calculation of estimated glomerular filtron 06-07-2020 Creatinine [Mass/Vol] 0.90 mg/dL 0.44-1.03 [facility] Serum or plasma glucose jackie urement (mass/volume)on 06-07-2020 Glucose [Mass/Vol] 83 mg/dL 70-100 [facility] Comment on above: ADA recommended refe rence rangeRandom Glucose Reference Range is dependent on time and content of last meal. Glucose of more than 200 mg/dL in a nonstressed, ambulatory subject supports the diagnosis of Diabetes Mellitus. Serum or plasma potassium me asurement (moles/volume)on 06-07-2020 Potassium [Moles/Vol] 4.4 mmol/L 3.5-5.1 [facility] Serum or plasma sodium measu rement (moles/volume)on 06-07-2020 Sodium [Moles/Vol] 138 mmol/L 136-146 [facility] Serum or plasma total carbon dioxide measurement (moles/volume)on 06-07-2020 CO2 [Moles/Vol] 19.1 mmol/L 22.0-30.0 [facility] Serum or plasma urea nitroge n measurement (mass/volume)on 06-07-2020 Urea nitrogen [Mass/Vol] 5 mg/dL 9 [facility] Automated basophil %on 06-06 Basophils/100 WBC (Bld) 0.9 % [facility] Automated basophil counton 1 Basophils (Bld) [#/Vol] 0.1 10*3/uL 0.0-0.2 [facility] Automated blood lymphocyte c ount (number/volume)on 06-06-2020 Lymphocytes (Bld) [#/Vol] 1.8 10*3/uL 1.00-4.8 [facility] Automated blood lymphocyte c ount as percentage of total leukocyteson 06-06-2020 Lymphocytes/100 WBC (Bld) 25.4 % [facility] Automated blood monocyte cou nton 06-06-2020 Monocytes (Bld) [#/Vol] 0.8 10*3/uL 0.0-0.8 [facility] Automated blood platelet cou nt (count/volume)on 06-06-2020 Platelets (Bld) [#/Vol] 130 10*3/uL 150-450 [facility] Automated blood platelet jose antonio n volume measurementon 06-06-2020 Platelet mean volume (Bld) [Entitic vol] 9.7 fL 6.3-10.7 [facility] Automated eosinophil %on Eosinophils/100 WBC (Bld) 4.1 % [facility] Automated eosinophil counton 06-06-2020 Eosinophils (Bld) [#/Vol] 0.3 10*3/uL 0.0-0.45 [facility] Automated erythrocyte distri bution width ratioon 06-06-2020 Erythrocyte distribution width (RBC) [Ratio] 28.2 % 11.9-15.3 [facility] Automated erythrocyte mean c orpuscular hemoglobin (mass per erythrocyte)on 06-06-2020 MCH (RBC) [Entitic mass] 24.3 pg 24.7-34.3 [facility] Automated erythrocyte mean c orpuscular hemoglobin concentration measurement (mass/volon 06-06-2020 MCHC (RBC) [Mass/Vol] 29.8 g/dL 32.0-35.0 [facility] Automated erythrocyte mean c orpuscular volumeon 06-06-2020 MCV (RBC) [Entitic vol] 81.5 fL 80-100 [facility] Automated monocyte %on 06-06 Monocytes/100 WBC (Bld) 10.6 % [facility] Automated neutrophil %on Neutrophils/100 WBC (Bld) 59.0 % [facility] Blood anisocytosis detection on 06-06-2020 Anisocytosis Ql (Bld) Marked [facility] Blood erythrocytes automated count (number/volume)on 06-06-2020 RBC (Bld) [#/Vol] 4.81 10*6/uL 3.60-5.00 [facility] Blood hemoglobin measurement (mass/volume)on 06-06-2020 Hemoglobin (Bld) [Mass/Vol] 11.7 g/dL 11.8-15.4 [facility] Blood leukocytes automated c ount (number/volume)on 06-06-2020 WBC (Bld) [#/Vol] 7.1 10*3/uL 3.8-11.6 [facility] Blood neutrophil count by au tomated method (number/volume)on 06-06-2020 Neutrophils (Bld) [#/Vol] 4.2 10*3/uL 1.8-7.7 [facility] Blood polychromasia detectio n by light microscopyon 06-06-2020 Polychromasia LM Ql (Bld) Slight [facility] Creatine kinase [Enzymatic a ctivity/volume] in Serum or Plasmaon 06-06-2020 CK [Catalytic activity/Vol] 141 U/L 22-269 [facility] Ferritin [Mass/volume] in Se rum or Plasmaon 06-06-2020 Ferritin [Mass/Vol] 27.5 ng/mL 11-306.8 [facility] Hematocrit [Volume Fraction] of Blood by Automated counton 06-06-2020 Hematocrit (Bld) [Volume fraction] 39.2 % 34.0-46.4 [facility] Hematologyon 06-06-2020 Platelets (Bld) [#/Vol] Decreased Normal [facility] Hypochromia detectionon Hypochromia Ql (Bld) Moderate [facility] Otheron 06-06-2020 Absolute Reticulocyte Count 0.131 10*6/uL 0.024-0.08 4 [facility] Microcytosis Slight [facility] Nucleated RBC/100 WBC (Bld) [Ratio] 0.1 % 0-0.5 [facility] Percent Reticulocyte Count 2.7 % 0.5-1.5 [facility] Platelet Morphology Comment Normal Normal [facility] Poikilocytosis Slight [facility] Schistocytes Rare [facility] Ovalocyte detectionon 2019 Ovalocytes LM Ql (Bld) Slight [facility] RBC morphologyon 06-06-2020 RBC morphology finding Nom (Bld) N/A [facility] Serum or plasma cardiac trop onin I measurement (mass/volume)on 06-06-2020 Troponin I.cardiac [Mass/Vol] 0.08 ng/mL 0-0.02 [facility] Comment on above: [place] Cut off value > or equal to 0.03 ng/mL in conjunction with clinical conditions of myocardial infarction.([email or web address]) Serum or plasma creatine kin ase MB (CKMB)/total creatine kinase (CK) ratio by calculaon 06-06-2020 CK.MB Calc [Catalytic fraction] 4.1 0.00-2.50 [facility] Serum or plasma creatine kin ase MB measurement (mass/volume)on 06-06-2020 CK.MB [Mass/Vol] 5.8 ng/mL 0.6-6.3 [facility] Target cellson 06-06-2020 Target cells LM Ql (Bld) Slight [facility] Teardrop cell detectionon Dacrocytes LM Ql (Bld) Rare [facility] COVID-19 Positive/Negativeon 06-05-2020 COVID-19 Positive/Negative Negative Negative [facility] Comment on above: Testing for SARS-CoV -2 by RT-PCRThis test was developed and its performance characteristics determined by [employer] ([employer] and validated at the [facility]. This test has not been [...] Otheron 06-05-2020 Coronavirus 2019 PCR Interp N/A [facility] Urine lactic acid measuremen ton 06-05-2020 Lactate (U) [Moles/Vol] 1.1 mmol/L [facility] Activated partial thrombopla stin time (aPTT) in platelet poor plasma by coagulation aon 06-04-2020 aPTT Coag (PPP) [Time] 28.9 s 23.0-35.0 Fi [facility] Cardiacon 06-04-2020 Natriuretic peptide B (Bld) [Mass/Vol] 1836.0 pg/mL 5-100 [facility] Hematologyon 06-04-2020 PT Coag (PPP) [Time] 15.7 s 9.0-12.9 [facility] Metabolic Panelon 06-04-2020 Magnesium [Mass/Vol] 1.7 mg/dL 1.6-2.6 [facility] Otheron 06-04-2020 Crenated Cell Moderate [facility] Platelet poor plasma interna tional normalized ratio (INR) by coagulation assay (relaton 06-04-2020 INR Coag (PPP) [Relative time] 1.4 {INR} [facility] Comment on above: INR Therapeutic Rang e [...] gap molar conc 14 mmol/L Normal 10-20 [facility] Comment on above: Performed By: #### 1 [id number] #### [facility] [address] [place] [address] Calcium mass conc 8.8 mg/dL Normal 8.6-10.3 [facility] Comment on above: Performed By: #### 1 [id number] #### [facility] [address] [place] [address] Chloride molar conc 101 mmol/L Normal 98-107 [facility] Comment on above: Performed By: #### 1 [id number] #### [facility] [address] [place] [address] Creatinine mass conc 0.96 mg/dL Normal 0.50-1.05 [facility] Comment on above: Performed By: #### 1 [id number] #### [facility] [address] [place] [address] GFR/1.73 sq M.predicted MDRD vol rate/area mL/min/{1.73_m2} Normal [facility] Comment on above: Result Comment: Inte rpretation for Chronic Kidney Disease: Stages 1&2 >60 Healthy or potential kidney damage. Mild decrease of GFR. Stage 3 30-59 Moderate decrease of GFR. Stage 4 15-29 Severe decrease of GFR. Stage 5 <15 Kidney failure or on dialysis. Performed By: #### 1 [id number] #### [facility] [address] [place] [address] 38627 Glucose mass conc 81 mg/dL Normal 70-100 [facility] Comment on above: Performed By: #### 1 [id number] #### [facility] [address] [place] [address] HCO3 molar conc (Bld) 25 mmol/L Normal 21-32 [facility] Comment on above: Performed By: #### 1 [id number] #### [facility] [address] [place] [address] Potassium molar conc 4.4 mmol/L Normal 3.5-5.1 [facility] Comment on above: Performed By: #### 1 [id number] #### [facility] [address] [place] [address] Sodium molar conc 136 mmol/L Normal 136-145 [facility] Comment on above: Performed By: #### 1 [id number] #### [facility] [address] [place] [address] Urea nitrogen mass conc 11 mg/dL Normal 6-23 [facility] Comment on above: Performed By: #### 1 [id number] #### [facility] [address] [place] [address] Urea nitrogen/Creatinine mass ratio 11 mg/mg Normal 5-25 [facility] Comment on above: Performed By: #### 1 [id number] #### [facility] [address] [place] [address] Prothrombin Timeon 9 INR Coag RelTime (PPP) 1.06 {INR} Normal 0.90-1.10 [facility] Comment on above: Performed By: #### 1 [id number] #### [facility] [address] [place] [address] Prothrombin time (PT) Coag time (PPP) 12.0 s Normal 9.7-12.7 [facility] Comment on above: Result Comment: PLEA NOTE NEW REFERENCE RANGE EFFECTIVE 2018 Performed By: #### 1 [id number] #### [facility] [address] [place] [address] Basic Metabolic Panelon Anion gap molar conc 8 mmol/L Low 10-20 [facility] Comment on above: Performed By: #### 1 [id number] #### [facility] [address] [place] [address] Calcium mass conc 9.0 mg/dL Normal 8.6-10.3 [facility] Comment on above: Performed By: #### 1 054191 #### [facility] [address] [place] [address] Chloride molar conc 100 mmol/L Normal 98-107 [facility] Comment on above: Performed By: #### 1 [id number] #### [facility] [address] [place] [address] Creatinine mass conc 1.05 mg/dL Normal 0.50-1.05 [facility] Comment on above: Performed By: #### 1 100065 #### [facility] [address] [place] [address] GFR/1.73 sq M.predicted MDRD vol rate/area 56 mL/min/{1.73_m2} Normal [facility] Comment on above: Result Comment: Inte rpretation for Chronic Kidney Disease: Stages 1&2 >60 Healthy or potential kidney damage. Mild decrease of GFR. Stage 3 30-59 Moderate decrease of GFR. Stage 4 15-29 Severe decrease of GFR. Stage 5 <15 Kidney failure or on dialysis. Performed By: #### 1 [id number] #### [facility] [address] [place] [address] Glucose mass conc 78 mg/dL Normal 70-100 [facility] Comment on above: Performed By: #### 1 [id number] #### [facility] [address] [place] [address] HCO3 molar conc (Bld) 31 mmol/L Normal 21-32 [facility] Comment on above: Performed By: #### 1 [id number] #### [facility] [address] [place] [address] Potassium molar conc 4.8 mmol/L Normal 3.5-5.1 [facility] Comment on above: Performed By: #### 1 [id number] #### [facility] [address] [place] [address] Sodium molar conc 134 mmol/L Low 136-145 [facility] Comment on above: Performed By: #### 1 [id number] #### [facility] [address] [place] [address] Urea nitrogen mass conc 16 mg/dL Normal 6-23 [facility] Comment on above: Performed By: #### 1 755216 #### [facility] [address] [place] [address] Urea nitrogen/Creatinine mass ratio 15 mg/mg Normal 5-25 [facility] Comment on above: Performed By: #### 1 [id number] #### [facility] [address] [place] [address] Prothrombin Timeon 9 INR Coag RelTime (PPP) 1.87 {INR} High 0.90-1.10 [facility] Comment on above: Performed By: #### 1 [id number] #### [facility] [address] [place] [address] Prothrombin time (PT) Coag time (PPP) 21.4 s High 9.7-12.7 [facility] Comment on above: Result Comment: MEGAN NOTE NEW REFERENCE RANGE EFFECTIVE 2018 Performed By: #### 1 [id number] #### [facility] [address] [place] [address] Activated Clotting Time Low Rangeon 08-04-2018 Activated Clotting Time Low Range 192 sec Normal [facility] Comment on above: Result Comment: Norm al: 96-167 Secs(Unheparinized) Stent Implant Range: >300 Secs Sheath Removal: 150-170 Secs CRRT: 180-220 Secs (Continous Renal Replacement Therapy) Performed By: #### 1 [id number] #### [facility] [address] [place] [address] Activated Clotting Time Low Range 180 sec Normal [facility] Comment on above: Result Comment: Norm al: 96-167 Secs(Unheparinized) Stent Implant Range: >300 Secs Sheath Removal: 150-170 Secs CRRT: 180-220 Secs (Continous Renal Replacement Therapy) Performed By: #### 1 [id number] #### [facility] [address] [place] [address] Activated Clotting Time Low Range 121 sec Normal [facility] Comment on above: Result Comment: Norm al: 96-167 Secs(Unheparinized) Stent Implant Range: >300 Secs Sheath Removal: 150-170 Secs CRRT: 180-220 Secs (Continous Renal Replacement Therapy) Performed By: #### 1 [id number] #### [facility] [address] [place] [address] CBCon 08-04-2018 Erythrocyte distribution width Ratio (RBC) 15.8 % High 12.0-15.4 [facility] Comment on above: Performed By: #### 1 [id number] #### [facility] [address] [place] [address] Hematocrit Volume Fraction (Bld) 41.8 % Normal 36.5-46.6 [facility] Comment on above: Performed By: #### 1 [id number] #### [facility] [address] [place] [address] Hemoglobin mass conc (Bld) 13.0 g/dL Normal 11.8-15.3 [facility] Comment on above: Performed By: #### 1 [id number] #### [facility] [address] [place] [address] MCH Entitic mass (RBC) 25.8 pg Low 27.5-33.0 [facility] Comment on above: Performed By: #### 1 [id number] #### [facility] [address] [place] [address] MCHC mass conc (RBC) 31.1 g/dL Normal 30.1-35.0 [facility] Comment on above: Performed By: #### 1 [id number] #### [facility] [address] [place] [address] MCV Entitic volume (RBC) 83.1 fL Low 85.4-100.0 [facility] Comment on above: Performed By: #### 1 [id number] #### [facility] [address] [place] [address] NRBC Absolute 0.00 10*3/uL Normal [facility] Comment on above: Performed By: #### 1 [id number] #### [facility] [address] [place] [address] NRBC Automated 0.0 /100{WBCs} Normal [facility] Comment on above: Performed By: #### 1 [id number] #### [facility] [address] [place] [address] Platelet mean volume Entitic volume (Bld) 11.5 fL Normal 9.9-12.1 [facility] Comment on above: Performed By: #### 1 [id number] #### [facility] [address] [place] [address] Platelets #/vol (Bld) 233 10*3/uL Normal 155-404 [facility] Comment on above: Performed By: #### 1 [id number] #### [facility] [address] [place] [address] RBC #/vol (Bld) 5.03 10*6/uL Normal 3.85-5.10 [facility] Comment on above: Performed By: #### 1 [id number] #### [facility] [address] [place] [address] RDW SD 46.8 fL Normal 39.3-48.6 [facility] Comment on above: Performed By: #### 1 767924 #### [facility] [address] [place] [address] WBC #/vol (Bld) 11.2 10*3/uL High 4.4-9.9 [facility] Comment on above: Performed By: #### 1 [id number] #### [facility] [address] [place] [address] Prothrombin Timeon 8 INR Coag RelTime (PPP) 1.18 {INR} High 0.90-1.10 [facility] Comment on above: Performed By: #### 1 [id number] #### [facility] [address] [place] [address] Prothrombin time (PT) Coag time (PPP) 13.4 s High 9.7-12.7 [facility] Comment on above: Result Comment: Delt a check investigation completed per policy PLEASE NOTE NEW REFERENCE RANGE EFFECTIVE 2018 Performed By: #### 1 [id number] #### [facility] [address] [place] [address] 269[address] Basic Metabolic Panelon 12-0 Anion gap molar conc 14 mmol/L Normal 10-20 [facility] Comment on above: Performed By: #### 1 [id number] #### [facility] [address] [place] [address]456 Calcium mass conc 9.5 mg/dL Normal 8.6-10.3 [facility] Comment on above: Performed By: #### 1 [id number] #### [facility] [address] [place] [address] Chloride molar conc 103 mmol/L Normal 98-107 [facility] Comment on above: Performed By: #### 1 [id number] #### [facility] [address] [place] [address] Creatinine mass conc 0.94 mg/dL Normal 0.50-1.05 [facility] Comment on above: Performed By: #### 1 804287 #### [facility] [address] [place] [address] GFR/1.73 sq M.predicted MDRD vol rate/area mL/min/{1.73_m2} Normal [facility] Comment on above: Result Comment: Inte rpretation for Chronic Kidney Disease: Stages 1&2 >60 Healthy or potential kidney damage. Mild decrease of GFR. Stage 3 30-59 Moderate decrease of GFR. Stage 4 15-29 Severe decrease of GFR. Stage 5 <15 Kidney failure or on dialysis. Performed By: #### 1 [id number] #### [facility] [address] [place] [address] Glucose mass conc 81 mg/dL Normal 70-100 [facility] Comment on above: Performed By: #### 1 332188 #### [facility] [address] [place] [address] HCO3 molar conc (Bld) 26 mmol/L Normal 21-32 [facility] Comment on above: Performed By: #### 1 923687 #### [facility] [address] [place] [address] Potassium molar conc 3.8 mmol/L Normal 3.5-5.1 [facility] Comment on above: Performed By: #### 1 [id number] #### [facility] [address] [place] [address] Sodium molar conc 139 mmol/L Normal 136-145 [facility] Comment on above: Performed By: #### 1 979412 #### [facility] [address] [place] [address] Urea nitrogen mass conc 10 mg/dL Normal 6-23 [facility] Comment on above: Performed By: #### 1 761820 #### [facility] [address] [place] [address] Urea nitrogen/Creatinine mass ratio 11 mg/mg Normal 5-25 [facility] Comment on above: Performed By: #### 1 [id number] #### [facility] [address] [place] [address] CBCon 08-02-2018 Erythrocyte distribution width Ratio (RBC) 15.9 % High 12.0-15.4 [facility] Comment on above: Performed By: #### 1 [id number] #### [facility] [address] [place] [id number] Hematocrit Volume Fraction (Bld) 47.6 % High 36.5-46.6 [facility] Comment on above: Performed By: #### 1 [id number] #### [facility] [address] [place] [id number] Hemoglobin mass conc (Bld) 14.3 g/dL Normal 11.8-15.3 [facility] Comment on above: Performed By: #### 1 287909 #### [facility] [address] [place] [address] MCH Entitic mass (RBC) 26.1 pg Low 27.5-33.0 [facility] Comment on above: Performed By: #### 1 [id number] #### [facility] [address] [place] [id number] MCHC mass conc (RBC) 30.0 g/dL Low 30.1-35.0 [facility] Comment on above: Performed By: #### 1 860142 #### [facility] [address] [place] [address] MCV Entitic volume (RBC) 86.9 fL Normal 85.4-100.0 [facility] Comment on above: Performed By: #### 1 [id number] #### [facility] [address] [place] [address] NRBC Absolute 0.00 10*3/uL Normal [facility] Comment on above: Performed By: #### 1 [id number] #### [facility] [address] [place] [address] NRBC Automated 0.0 /100{WBCs} Normal [facility] Comment on above: Performed By: #### 1 [id number] #### [facility] [address] [place] [address] Platelet mean volume Entitic volume (Bld) 13.7 fL High 9.9-12.1 [facility] Comment on above: Performed By: #### 1 747210 #### [facility] [address] [place] [address] Platelets #/vol (Bld) 223 10*3/uL Normal 155-404 [facility] Comment on above: Performed By: #### 1 [id number] #### [facility] [address] [place] [address] RBC #/vol (Bld) 5.48 10*6/uL High 3.85-5.10 [facility] Comment on above: Performed By: #### 1 215203 #### [facility] [address] [place] [address] RDW SD 50.1 fL High 39.3-48.6 [facility] Comment on above: Performed By: #### 1 [id number] #### [facility] [address] [place] [address] WBC #/vol (Bld) 12.6 10*3/uL High 4.4-9.9 [facility] Comment on above: Performed By: #### 1 591274 #### [facility] [address] [place] [address] Prothrombin Timeon 8 INR Coag RelTime (PPP) 3.04 {INR} High 0.90-1.10 [facility] Comment on above: Performed By: #### 1 [id number] #### [facility] [address] [place] [address] Prothrombin time (PT) Coag time (PPP) 35.1 s High 9.7-12.7 [facility] Comment on above: Result Comment: MEGAN RUBIN NOTE NEW REFERENCE RANGE EFFECTIVE 2018 Performed By: #### 1 [id number] #### [facility] [address] [place] [address] Basic Metabolic Panelon 11-0 Anion gap molar conc 11 mmol/L Normal 10-20 [facility] Comment on above: Performed By: #### 1 [id number] #### [facility] [address] [place] [address] Calcium mass conc 9.0 mg/dL Normal 8.6-10.3 [facility] Comment on above: Performed By: #### 1 [id number] #### [facility] [address] [place] [address] Chloride molar conc 99 mmol/L Normal 98-107 [facility] Comment on above: Performed By: #### 1 [id number] #### [facility] [address] [place] [address] Creatinine mass conc 1.00 mg/dL Normal 0.50-1.05 [facility] Comment on above: Performed By: #### 1 [id number] #### [facility] [address] [place] [address] GFR/1.73 sq M.predicted MDRD vol rate/area 59 mL/min/{1.73_m2} Normal [facility] Comment on above: Result Comment: Inte rpretation for Chronic Kidney Disease: Stages 1&2 >60 Healthy or potential kidney damage. Mild decrease of GFR. Stage 3 30-59 Moderate decrease of GFR. Stage 4 15-29 Severe decrease of GFR. Stage 5 <15 Kidney failure or on dialysis. Performed By: #### 1 [id number] #### [facility] [address] [place] [address] Glucose mass conc 81 mg/dL Normal 70-100 [facility] Comment on above: Performed By: #### 1 [id number] #### [facility] [address] [place] [address] HCO3 molar conc (Bld) 27 mmol/L Normal 21-32 [facility] Comment on above: Performed By: #### 1 [id number] #### [facility] [address] [place] [address] Potassium molar conc 4.1 mmol/L Normal 3.5-5.1 [facility] Comment on above: Performed By: #### 1 919246 #### [facility] [address] [place] [address] Sodium molar conc 133 mmol/L Low 136-145 [facility] Comment on above: Performed By: #### 1 [id number] #### [facility] [address] [place] [address] Urea nitrogen mass conc 14 mg/dL Normal 6-23 [facility] Comment on above: Performed By: #### 1 [id number] #### [facility] [address] [place] [address] Urea nitrogen/Creatinine mass ratio 14 mg/mg Normal 5-25 [facility] Comment on above: Performed By: #### 1 [id number] #### [facility] [address] [place] [address] Magnesiumon 07-01-2018 Magnesium mass conc 1.9 mg/dL Normal 1.6-2.4 [facility] Comment on above: Performed By: #### 1 [id number] #### [facility] [address] [place] [address] Prothrombin Timeon 8 INR Coag RelTime (PPP) 3.10 {INR} High 0.90-1.10 [facility] Comment on above: Performed By: #### 1 [id number] #### [facility] [address] [place] [address] Prothrombin time (PT) Coag time (PPP) 35.8 s High 9.7-12.7 [facility] Comment on above: Result Comment: MEGAN RUBIN NOTE NEW REFERENCE RANGE EFFECTIVE 2018 Performed By: #### 1 [id number] #### [facility] [address] [place] [address] Basic Metabolic Panelon 11-0 Anion gap molar conc 12 mmol/L Normal 10-20 [facility] Comment on above: Performed By: #### 1 [id number] #### [facility] [address] [place] [address] Calcium mass conc 9.0 mg/dL Normal 8.6-10.3 [facility] Comment on above: Performed By: #### 1 [id number] #### [facility] [address] [place] [address] Chloride molar conc 101 mmol/L Normal 98-107 [facility] Comment on above: Performed By: #### 1 714607 #### [facility] [address] [place] [address] Creatinine mass conc 1.04 mg/dL Normal 0.50-1.05 [facility] Comment on above: Performed By: #### 1 573614 #### [facility] [address] [place] [address] GFR/1.73 sq M.predicted MDRD vol rate/area 56 mL/min/{1.73_m2} Normal [facility] Comment on above: Result Comment: Inte rpretation for Chronic Kidney Disease: Stages 1&2 >60 Healthy or potential kidney damage. Mild decrease of GFR. Stage 3 30-59 Moderate decrease of GFR. Stage 4 15-29 Severe decrease of GFR. Stage 5 <15 Kidney failure or on dialysis. Performed By: #### 1 [id number] #### [facility] [address] [place] [address] Glucose mass conc 89 mg/dL Normal 70-100 [facility] Comment on above: Performed By: #### 1 [id number] #### [facility] [address] [place] [address] HCO3 molar conc (Bld) 25 mmol/L Normal 21-32 [facility] Comment on above: Performed By: #### 1 [id number] #### [facility] [address] [place] [address] Potassium molar conc 4.3 mmol/L Normal 3.5-5.1 [facility] Comment on above: Performed By: #### 1 [id number] #### [facility] [address] [place] [address] Sodium molar conc 134 mmol/L Low 136-145 [facility] Comment on above: Performed By: #### 1 700063 #### [facility] [address] [place] [address] Urea nitrogen mass conc 12 mg/dL Normal 6-23 [facility] Comment on above: Performed By: #### 1 473251 #### [facility] [address] [place] [address] Urea nitrogen/Creatinine mass ratio 12 mg/mg Normal 5-25 [facility] Comment on above: Performed By: #### 1 146888 #### [facility] [address] [place] [address] Magnesiumon 06-30-2018 Magnesium mass conc 2.0 mg/dL Normal 1.6-2.4 [facility] Comment on above: Performed By: #### 1 [id number] #### [facility] [address] [place] [address] Prothrombin Timeon 8 INR Coag RelTime (PPP) 2.93 {INR} High 0.90-1.10 [facility] Comment on above: Performed By: #### 2 [id number] #### [facility] [address] [place] [address] Prothrombin time (PT) Coag time (PPP) 33.9 s High 9.7-12.7 [facility] Comment on above: Result Comment: MEGAN RUBIN NOTE NEW REFERENCE RANGE EFFECTIVE 2018 Performed By: #### 2 [id number] #### [facility] [address] [place] [address] Basic Metabolic Panelon 06-01 Anion gap molar conc 8 mmol/L Low 10-20 [facility] Comment on above: Performed By: #### 2 188820 #### [facility] [address] [place] [address] Calcium mass conc 8.7 mg/dL Normal 8.6-10.3 [facility] Comment on above: Performed By: #### 2 532449 #### [facility] [address] [place] [address] Chloride molar conc 103 mmol/L Normal 98-107 [facility] Comment on above: Performed By: #### 2 879610 #### [facility] [address] [place] [address] Creatinine mass conc 0.89 mg/dL Normal 0.50-1.05 [facility] Comment on above: Performed By: #### 2 137558 #### [facility] [address] [place] [address] GFR/1.73 sq M.predicted MDRD vol rate/area mL/min/{1.73_m2} Normal [facility] Comment on above: Result Comment: Inte rpretation for Chronic Kidney Disease: Stages 1&2 >60 Healthy or potential kidney damage. Mild decrease of GFR. Stage 3 30-59 Moderate decrease of GFR. Stage 4 15-29 Severe decrease of GFR. Stage 5 <15 Kidney failure or on dialysis. Performed By: #### 2 [id number] #### [facility] [address] [place] [address] Glucose mass conc 125 mg/dL High 70-100 [facility] Comment on above: Performed By: #### 2 614168 #### [facility] [address] [place] [address] HCO3 molar conc (Bld) 26 mmol/L Normal 21-32 [facility] Comment on above: Performed By: #### 2 243161 #### [facility] [address] [place] [address] Potassium molar conc 4.0 mmol/L Normal 3.5-5.1 [facility] Comment on above: Performed By: #### 2 [id number] #### [facility] [address] [place] [address] Sodium molar conc 133 mmol/L Low 136-145 [facility] Comment on above: Performed By: #### 2 [id number] #### [facility] [address] [place] [address] Urea nitrogen mass conc 10 mg/dL Normal 6-23 [facility] Comment on above: Performed By: #### 2 [id number] #### [facility] [address] [place] [address] Urea nitrogen/Creatinine mass ratio 11 mg/mg Normal 5-25 [facility] Comment on above: Performed By: #### 2 [id number] #### [facility] [address] [place] [address] Magnesiumon 06-29-2018 Magnesium mass conc 1.8 mg/dL Normal 1.6-2.4 [facility] Comment on above: Performed By: #### 2 [id number] #### [facility] [address] [place] [address] Prothrombin Timeon 8 INR Coag RelTime (PPP) 3.23 {INR} High 0.90-1.10 [facility] Comment on above: Performed By: #### 2 [id number] #### [facility] [address] [place] [address] Prothrombin time (PT) Coag time (PPP) 37.4 s High 9.7-12.7 [facility] Comment on above: Result Comment: MEGAN RUBIN NOTE NEW REFERENCE RANGE EFFECTIVE 2018 Performed By: #### 2 [id number] #### [facility] [address] [place] [address] Basic Metabolic Panelon 06-01 Anion gap molar conc 11 mmol/L Normal 10-20 [facility] Comment on above: Performed By: #### 2 [id number] #### [facility] [address] [place] [address] Calcium mass conc 8.5 mg/dL Low 8.6-10.3 [facility] Comment on above: Performed By: #### 2 [id number] #### [facility] [address] [place] [address] Chloride molar conc 104 mmol/L Normal 98-107 [facility] Comment on above: Performed By: #### 2 [id number] #### [facility] [address] [place] [address] Creatinine mass conc 0.90 mg/dL Normal 0.50-1.05 [facility] Comment on above: Performed By: #### 2 [id number] #### [facility] [address] [place] [address] GFR/1.73 sq M.predicted MDRD vol rate/area mL/min/{1.73_m2} Normal [facility] Comment on above: Result Comment: Inte rpretation for Chronic Kidney Disease: Stages 1&2 >60 Healthy or potential kidney damage. Mild decrease of GFR. Stage 3 30-59 Moderate decrease of GFR. Stage 4 15-29 Severe decrease of GFR. Stage 5 <15 Kidney failure or on dialysis. Performed By: #### 2 [id number] #### [facility] [address] [place] [address] Glucose mass conc 99 mg/dL Normal 70-100 [facility] Comment on above: Performed By: #### 2 [id number] #### [facility] [address] [place] [address] HCO3 molar conc (Bld) 23 mmol/L Normal 21-32 [facility] Comment on above: Performed By: #### 2 [id number] #### [facility] [address] [place] [address] Potassium molar conc 4.3 mmol/L Normal 3.5-5.1 [facility] Comment on above: Performed By: #### 2 [id number] #### [facility] [address] [place] [address] Sodium molar conc 134 mmol/L Low 136-145 [facility] Comment on above: Performed By: #### 2 [id number] #### [facility] [address] [place] [address] Urea nitrogen mass conc 15 mg/dL Normal 6-23 [facility] Comment on above: Performed By: #### 2 [id number] #### [facility] [address] [place] [address] Urea nitrogen/Creatinine mass ratio 17 mg/mg Normal 5-25 [facility] Comment on above: Performed By: #### 2 [id number] #### [facility] [address] [place] [address] Magnesiumon 06-28-2018 Magnesium mass conc 1.9 mg/dL Normal 1.6-2.4 [facility] Comment on above: Performed By: #### 2 072501 #### [facility] [address] [place] [address] Prothrombin Timeon 8 INR Coag RelTime (PPP) 4.27 {INR} High 0.90-1.10 [facility] Comment on above: Performed By: #### 2 [id number] #### [facility] [address] [place] [address] Prothrombin time (PT) Coag time (PPP) 49.7 s High 9.7-12.7 [facility] Comment on above: Result Comment: MEGAN RUBIN NOTE NEW REFERENCE RANGE EFFECTIVE 2018 Performed By: #### 2 [id number] #### [facility] [address] [place] [address] Basic Metabolic Panelon 10- Anion gap molar conc 12 mmol/L Normal 10-20 [facility] Comment on above: Performed By: #### 2 [id number] #### [facility] [address] [place] [address] Calcium mass conc 8.4 mg/dL Low 8.6-10.3 [facility] Comment on above: Performed By: #### 2 [id number] #### [facility] [address] [place] [address] Chloride molar conc 109 mmol/L High 98-107 [facility] Comment on above: Performed By: #### 2 [id number] #### [facility] [address] [place] [address] Creatinine mass conc 1.04 mg/dL Normal 0.50-1.05 [facility] Comment on above: Performed By: #### 2 [id number] #### [facility] [address] [place] [address] GFR/1.73 sq M.predicted MDRD vol rate/area 56 mL/min/{1.73_m2} Normal [facility] Comment on above: Result Comment: Inte rpretation for Chronic Kidney Disease: Stages 1&2 >60 Healthy or potential kidney damage. Mild decrease of GFR. Stage 3 30-59 Moderate decrease of GFR. Stage 4 15-29 Severe decrease of GFR. Stage 5 <15 Kidney failure or on dialysis. Performed By: #### 2 [id number] #### [facility] [address] [place] [address] Glucose mass conc 84 mg/dL Normal 70-100 [facility] Comment on above: Performed By: #### 2 [id number] #### [facility] [address] [place] [address] HCO3 molar conc (Bld) 21 mmol/L Normal 21-32 [facility] Comment on above: Performed By: #### 2 [id number] #### [facility] [address] [place] [address] Potassium molar conc 4.5 mmol/L Normal 3.5-5.1 [facility] Comment on above: Performed By: #### 2 786394 #### [facility] [address] [place] [address] Sodium molar conc 138 mmol/L Normal 136-145 [facility] Comment on above: Performed By: #### 2 [id number] #### [facility] [address] [place] [address] Urea nitrogen mass conc 16 mg/dL Normal 6-23 [facility] Comment on above: Performed By: #### 2 [id number] #### [facility] [address] [place] [address] Urea nitrogen/Creatinine mass ratio 15 mg/mg Normal 5-25 [facility] Comment on above: Performed By: #### 2 [id number] #### [facility] [address] [place] [address] Anion gap molar conc 10 mmol/L Normal 10-20 [facility] Comment on above: Performed By: #### 2 [id number] #### [facility] [address] [place] [address] Calcium mass conc 8.6 mg/dL Normal 8.6-10.3 [facility] Comment on above: Performed By: #### 2 569664 #### [facility] [address] [place] [address] Chloride molar conc 107 mmol/L Normal 98-107 [facility] Comment on above: Performed By: #### 2 078767 #### [facility] [address] [place] [address] Creatinine mass conc 1.05 mg/dL Normal 0.50-1.05 [facility] Comment on above: Performed By: #### 2 651898 #### [facility] [address] [place] [address] GFR/1.73 sq M.predicted MDRD vol rate/area 56 mL/min/{1.73_m2} Normal [facility] Comment on above: Result Comment: Inte rpretation for Chronic Kidney Disease: Stages 1&2 >60 Healthy or potential kidney damage. Mild decrease of GFR. Stage 3 30-59 Moderate decrease of GFR. Stage 4 15-29 Severe decrease of GFR. Stage 5 <15 Kidney failure or on dialysis. Performed By: #### 2 [id number] #### [facility] [address] [place] [address] Glucose mass conc 95 mg/dL Normal 70-100 [facility] Comment on above: Performed By: #### 2 [id number] #### [facility] [address] [place] [address] HCO3 molar conc (Bld) 26 mmol/L Normal 21-32 [facility] Comment on above: Performed By: #### 2 [id number] #### [facility] [address] [place] [address] Potassium molar conc 4.3 mmol/L Normal 3.5-5.1 [facility] Comment on above: Performed By: #### 2 607771 #### [facility] [address] [place] [address] Sodium molar conc 139 mmol/L Normal 136-145 [facility] Comment on above: Performed By: #### 2 [id number] #### [facility] [address] [place] [address] Urea nitrogen mass conc 17 mg/dL Normal 6-23 [facility] Comment on above: Performed By: #### 2 [id number] #### [facility] [address] [place] [address] Urea nitrogen/Creatinine mass ratio 16 mg/mg Normal 5-25 [facility] Comment on above: Performed By: #### 2 315125 #### [facility] [address] [place] [address] CBC With Differentialon -2 Basophils #/vol (Bld) 0.11 10*3/uL High 0.01-0.07 [facility] Comment on above: Performed By: #### 2 [id number] #### [facility] [address] [place] [address] Basophils/100 WBC (Bld) 1.2 % Normal 0.1-1.2 [facility] Comment on above: Performed By: #### 2 798492 #### [facility] [address] [place] [address] Eosinophils #/vol (Bld) 0.45 10*3/uL Normal 0.04-0.50 [facility] Comment on above: Performed By: #### 2 [id number] #### [facility] [address] [place] [address] Eosinophils/100 WBC (Bld) 4.7 % Normal 0.0-8.1 [facility] Comment on above: Performed By: #### 2 [id number] #### [facility] [address] [place] [address] Erythrocyte distribution width Ratio (RBC) 15.7 % High 12.0-15.4 [facility] Comment on above: Performed By: #### 2 359834 #### [facility] [address] [place] [address] Hematocrit Volume Fraction (Bld) 38.5 % Normal 36.5-46.6 [facility] Comment on above: Performed By: #### 2 304868 #### [facility] [address] [place] [address] Hemoglobin mass conc (Bld) 11.9 g/dL Normal 11.8-15.3 [facility] Comment on above: Performed By: #### 2 525117 #### [facility] [address] [place] [address] Imm Grans Absolute 0.09 10*3/uL Normal 0.00-0.21 [facility] Comment on above: Performed By: #### 2 732762 #### [facility] [address] [place] [address] Immature granulocytes #/vol (Bld) 0.9 % Normal [facility] Comment on above: Performed By: #### 2 277991 #### [facility] [address] [place] [address] Lymphocytes #/vol (Bld) 3.15 10*3/uL High 0.40-2.84 [facility] Comment on above: Performed By: #### 2 724038 #### [facility] [address] [place] [address] Lymphocytes/100 WBC (Bld) 33.2 % Normal 15.7-50.5 [facility] Comment on above: Performed By: #### 2 760438 #### [facility] [address] [place] [address] MCH Entitic mass (RBC) 26.1 pg Low 27.5-33.0 [facility] Comment on above: Performed By: #### 2 585156 #### [facility] [address] [place] [address] MCHC mass conc (RBC) 30.9 g/dL Normal 30.1-35.0 [facility] Comment on above: Performed By: #### 2 081718 #### [facility] [address] [place] [address] MCV Entitic volume (RBC) 84.4 fL Low 85.4-100.0 [facility] Comment on above: Performed By: #### 2 862920 #### [facility] [address] [place] [address] Monocytes #/vol (Bld) 0.91 10*3/uL High 0.25-0.83 [facility] Comment on above: Performed By: #### 2 655149 #### [facility] [address] [place] [address] Monocytes/100 WBC (Bld) 9.6 % Normal 4.8-12.7 [facility] Comment on above: Performed By: #### 2 235734 #### [facility] [address] [place] [address] Neutrophils Absolute 4.78 10*3/uL Normal 1.95-6.85 [facility] Comment on above: Performed By: #### 2 197926 #### [facility] [address] [place] [address] Neutrophils/100 WBC (Bld) 50.4 % Normal 36.8-73.2 [facility] Comment on above: Performed By: #### 2 687898 #### [facility] [address] [place] [address] NRBC Absolute 0.00 10*3/uL Normal [facility] Comment on above: Performed By: #### 2 874958 #### [facility] [address] [place] [address] NRBC Automated 0.0 /100{WBCs} Normal [facility] Comment on above: Performed By: #### 2 545972 #### [facility] [address] [place] [address] Platelet mean volume Entitic volume (Bld) 11.1 fL Normal 9.9-12.1 [facility] Comment on above: Performed By: #### 2 676309 #### [facility] [address] [place] [address] Platelets #/vol (Bld) 215 10*3/uL Normal 155-404 [facility] Comment on above: Performed By: #### 2 770489 #### [facility] [address] [place] [address] RBC #/vol (Bld) 4.56 10*6/uL Normal 3.85-5.10 [facility] Comment on above: Performed By: #### 2 254500 #### [facility] [address] [place] [address] RDW SD 48.0 fL Normal 39.3-48.6 [facility] Comment on above: Performed By: #### 2 785293 #### [facility] [address] [place] [address] WBC #/vol (Bld) 9.5 10*3/uL Normal 4.4-9.9 [facility] Comment on above: Performed By: #### 2 815443 #### [facility] [address] [place] [address] Comprehensive Metabolic Pane siddharth 06-27-2018 Albumin mass conc 3.9 g/dL Normal 3.4-5.0 [facility] Comment on above: Performed By: #### 1 [id number] #### [facility] [address] [place] [address] Albumin/Globulin mass ratio 1.3 {ratio} Normal 0.9-2.4 [facility] Comment on above: Performed By: #### 1 215182 #### [facility] [address] [place] [address] ALP enzyme act/vol 150 U/L High 45-117 [facility] Comment on above: Performed By: #### 1 324263 #### [facility] [address] [place] [address] ALT enzyme act/vol 11 U/L Normal 7-45 [facility] Comment on above: Performed By: #### 1 360477 #### [facility] [address] [place] [address] Anion gap molar conc 13 mmol/L Normal 10-20 [facility] Comment on above: Performed By: #### 1 363561 #### [facility] [address] [place] [address] AST enzyme act/vol 21 U/L Normal 13-39 [facility] Comment on above: Performed By: #### 1 395772 #### [facility] [address] [place] [address] Bilirubin mass conc 0.3 mg/dL Normal 0.0-1.2 [facility] Comment on above: Performed By: #### 1 076572 #### [facility] [address] [place] [address] Calcium mass conc 9.0 mg/dL Normal 8.6-10.3 [facility] Comment on above: Performed By: #### 1 531924 #### [facility] [address] [place] [address] Chloride molar conc 103 mmol/L Normal 98-107 [facility] Comment on above: Performed By: #### 1 858745 #### [facility] [address] [place] [address] Creatinine mass conc 1.09 mg/dL High 0.50-1.05 [facility] Comment on above: Performed By: #### 1 567806 #### [facility] [address] [place] [address] GFR/1.73 sq M.predicted MDRD vol rate/area 53 mL/min/{1.73_m2} Normal [facility] Comment on above: Result Comment: Inte rpretation for Chronic Kidney Disease: Stages 1&2 >60 Healthy or potential kidney damage. Mild decrease of GFR. Stage 3 30-59 Moderate decrease of GFR. Stage 4 15-29 Severe decrease of GFR. Stage 5 <15 Kidney failure or on dialysis. Performed By: #### 1 [id number] #### [facility] [address] [place] [address] Glucose mass conc 94 mg/dL Normal 70-100 [facility] Comment on above: Performed By: #### 1 260989 #### [facility] [address] [place] [address] HCO3 molar conc (Bld) 27 mmol/L Normal 21-32 [facility] Comment on above: Performed By: #### 1 193526 #### [facility] [address] [place] [address] Potassium molar conc 4.3 mmol/L Normal 3.5-5.1 [facility] Comment on above: Performed By: #### 1 695392 #### [facility] [address] [place] [address] Protein mass conc 6.8 g/dL Normal 6.4-8.2 [facility] Comment on above: Performed By: #### 1 145522 #### [facility] [address] [place] [address] Sodium molar conc 139 mmol/L Normal 136-145 [facility] Comment on above: Performed By: #### 1 [id number] #### [facility] [address] [place] [address] Urea nitrogen mass conc 19 mg/dL Normal 6-23 [facility] Comment on above: Performed By: #### 1 721216 #### [facility] [address] [place] [address] Urea nitrogen/Creatinine mass ratio 17 mg/mg Normal 5-25 [facility] Comment on above: Performed By: #### 1 172441 #### [facility] [address] [place] [address] Magnesiumon 06-27-2018 Magnesium mass conc 2.0 mg/dL Normal 1.6-2.4 [facility] Comment on above: Performed By: #### 2 [id number] #### [facility] [address] [place] [address] Magnesium mass conc 1.9 mg/dL Normal 1.6-2.4 [facility] Comment on above: Performed By: #### 1 [id number] #### [facility] [address] [place] [address] Partial Thromboplastin Timeo n 06-27-2018 aPTT Coag time (Bld) 29.7 s Normal 25.0-36.0 [facility] Comment on above: Result Comment: . The APTT is no longer used for monitoring Unfractionated Heparin Therapy. For monitoring Heparin Therapy, use the Heparin Assay. Performed By: #### 3 [id number] #### [facility] [address] [place] [address] Prothrombin Timeon 8 INR Coag RelTime (PPP) 3.54 {INR} High 0.90-1.10 [facility] Comment on above: Performed By: #### 3 [id number] #### [facility] [address] [place] [address] Prothrombin time (PT) Coag time (PPP) 41.0 s High 9.7-12.7 [facility] Comment on above: Result Comment: PLEA SE NOTE NEW REFERENCE RANGE EFFECTIVE 2018 Performed By: #### 3 [id number] #### [facility] [address] [place] [address] INR Coag RelTime (PPP) 2.98 {INR} High 0.90-1.10 [facility] Comment on above: Performed By: #### 3 [id number] #### [facility] [address] [place] [address] Prothrombin time (PT) Coag time (PPP) 33.4 s High 9.8-12.7 [facility] Comment on above: Performed By: #### 3 [id number] #### [facility] [address] [place] [address] TSHon 06-27-2018 Thyrotropin Qn 7.04 mU/L High 0.44-3.98 [facility] Comment on above: Performed By: #### 1 110476 #### [facility] [address] [place] [address] Thyroxine, Freeon 06-27-2018 Thyroxine, Free 0.90 ng/dL Normal 0.61-1.12 [facility] Comment on above: Performed By: #### 1 [id number] #### [facility] [address] [place] [address] Triiodothyronine, Freeon Triiodothyronine, Free 2.3 pg/mL Normal 1.8-4.2 [facility] Comment on above: Performed By: #### F RT3 #### [facility] [address] [place] [address] Drugs of Abuse, Urine(7)on 0 05-12-2018 Amphetamines/Metamphet amines, Urine Not Detected Normal [facility] Comment on above: Performed By: #### 7 [id number] #### [facility] [address] [place] [address] Barbiturates, Urine Detected Abnormal [facility] Comment on above: Performed By: #### 7 [id number] #### [facility] [address] [place] [address] Benzodiazepines, Urine Not Detected Normal [facility] Comment on above: Performed By: #### 7 472474 #### [facility] [address] [place] [address] Cannabinoids, Urine Not Detected Normal [facility] Comment on above: Performed By: #### 7 083944 #### [facility] [address] [place] [address] Cocaine, Urine Not Detected Normal [facility] Comment on above: Performed By: #### 7 568571 #### [facility] [address] [place] [address] Methadone, Urine Not Detected Normal [facility] Comment on above: Performed By: #### 7 965384 #### [facility] [address] [place] [address] Opiates, Urine Not Detected Normal [facility] Comment on above: Performed By: #### 7 139165 #### [facility] [address] [place] [address] PCP, Urine Not Detected Normal [facility] Comment on above: Result Comment: Urin e toxicology screen results are to be used for medical purposes only. It is recommended that any result reported as Detected be confirmed by a more specific alternative chemical method. Drug Analyzed Cutoff Concentration(ng/mL) Barbiturates 200 Benzodiazepines 200 Cocaine 150 Opiates 300 Amphetamines 500 Cannabinoids 50 Methadone 150 PCP 25 Performed By: #### 7 [id number] #### [facility] [address] [place] [address] Vital Signs Date Time Vital Sign Value Performing Clinician Facility 03-30-2024 11:54-0400 Body temperature 97.4 [degF] MD Tanner Mae Jr Work Phone: [facility] 03-30-2024 11:54-0400 Diastolic blood pressure 74 mm[Hg] MD Tanner Mae Jr Work Phone: [facility] 03-30-2024 11:54-0400 Heart rate 81 /min MD Tanner aMe Jr Work Phone: [facility] 03-30-2024 11:54-0400 Respiratory rate 16 /min MD Tanner Mae Jr Work Phone: [facility] 03-30-2024 11:54-0400 SaO2% (BldA) [Mass fraction] 98 % MD Tanner Mae Jr Work Phone: [facility] 03-30-2024 11:54-0400 Systolic blood pressure 113 mm[Hg] MD Tanner aMe Jr Work Phone: [facility] 03-30-2024 03:37-0400 Body height 162.56 cm MD Tanner Mae Jr Work Phone: [facility] 03-30-2024 03:37-0400 Body weight 70.6 kg MD Tanner Mae Jr Work Phone: [facility] 03-30-2024 02:07-0400 Diastolic blood pressure 68 mm[Hg] MD Tanner Mae Jr Work Phone: [facility] 03-30-2024 02:07-0400 Heart rate 80 /min MD Tanner Mae Jr Work Phone: [facility] 03-30-2024 02:07-0400 Systolic blood pressure 157 mm[Hg] MD Tanner Mae Jr Work Phone: [facility] 03-30-2024 02:05-0400 Respiratory rate 16 /min MD Tanner Mae Jr Work Phone: [facility] 03-30-2024 02:05-0400 SaO2% (BldA) [Mass fraction] 99 % MD Tanner Mae Jr Work Phone: [facility] 03-29-2024 23:32-0400 Body height 162.56 cm MD Tanner Mae Jr Work Phone: [facility] 03-29-2024 23:32-0400 Body weight 70.9 kg MD Tanner Mae Jr Work Phone: [facility] 03-29-2024 23:30-0400 Body temperature 98 [degF] MD Tanner Mae Jr Work Phone: [facility] 02-22-2024 11:20-0400 Body height 152.4 cm MD Tanner Mae Jr Work Phone: [facility] 02-22-2024 11:20-0400 Diastolic blood pressure 72 mm[Hg] MD Tanner Mae Jr Work Phone: [facility] 02-22-2024 11:20-0400 Heart rate 80 /min MD Tanner Mae Jr Work Phone: [facility] 02-22-2024 11:20-0400 SaO2% (BldA) [Mass fraction] 98 % MD Tanner Mae Jr Work Phone: [facility] 02-22-2024 11:20-0400 Systolic blood pressure 120 mm[Hg] MD Tanner Mae Jr Work Phone: [facility] 02-18-2024 09:48-0400 Body height 152.4 cm MD Tanner Mae Jr Work Phone: [facility] 02-18-2024 09:48-0400 Body mass index (BMI) [Ratio] 29.5 kg/m2 MD Tanner Mae Jr Work Phone: [facility] 02-18-2024 09:48-0400 Body weight 68.49 kg MD Tanner Mae Jr Work Phone: [facility] 02-18-2024 09:48-0400 Diastolic blood pressure 60 mm[Hg] MD Tanner Mae Jr Work Phone: [facility] 02-18-2024 09:48-0400 Heart rate 67 /min MD Tanner Mae Jr Work Phone: [facility] 02-18-2024 09:48-0400 SaO2% (BldA) [Mass fraction] 97 % MD Tanner Mae Jr Work Phone: [facility] 02-18-2024 09:48-0400 Systolic blood pressure 100 mm[Hg] MD Tanner Mae Jr Work Phone: [facility] 01-24-2024 07:01-0400 Diastolic blood pressure 56 mm[Hg] MD Tanner Mae Jr Work Phone: [facility] 01-24-2024 07:01-0400 Heart rate 80 /min MD Tanner Mae Jr Work Phone: [facility] 01-24-2024 07:01-0400 Respiratory rate 14 /min MD Tanner Mae Jr Work Phone: [facility] 01-24-2024 07:01-0400 SaO2% (BldA) [Mass fraction] 100 % MD Tanner Mae Jr Work Phone: [facility] 01-24-2024 07:01-0400 Systolic blood pressure 117 mm[Hg] MD Tanner Mae Jr Work Phone: [facility] 01-24-2024 00:46-0400 Body height 152.4 cm MD Tanner Mae Jr Work Phone: [facility] 01-24-2024 00:46-0400 Body temperature 97.6 [degF] MD Tanner Mae Jr Work Phone: [facility] 01-24-2024 00:46-0400 Body weight 65.31 kg MD Tanner Mae Jr Work Phone: [facility] 11-11-2023 16:14-0400 Body height 152.4 cm DO Darian Itzkowitz Work Phone: [facility] 11-11-2023 16:14-0400 Body mass index (BMI) [Ratio] 29.2 kg/m2 DO Darian Itzkowitz Work Phone: [facility] 11-11-2023 16:14-0400 Body temperature 97.8 [degF] DO Darian Itzkowitz Work Phone: [facility] 11-11-2023 16:14-0400 Body weight 68.03 kg DO Darian Itzkowitz Work Phone: [facility] 11-11-2023 16:14-0400 Diastolic blood pressure 68 mm[Hg] DO Darian Itzkowitz Work Phone: [facility] 11-11-2023 16:14-0400 Heart rate 88 /min DO Darian Itzkowitz Work Phone: [facility] 11-11-2023 16:14-0400 Respiratory rate 18 /min DO Darian Itzkowitz Work Phone: [facility] 11-11-2023 16:14-0400 SaO2% (BldA) [Mass fraction] 99 % DO Darian Itzkowitz Work Phone: [facility] 11-11-2023 16:14-0400 Systolic blood pressure 134 mm[Hg] DO Darian Smiley Work Phone: [facility] 10-07-2023 08:44-0500 Diastolic blood pressure 77 mm[Hg] Noman Glover MD Work Phone: [employer] 10-07-2023 08:44-0500 Heart rate 80 /min Noman Glover MD Work Phone: [facility] 10-07-2023 08:44-0500 Systolic blood pressure 113 mm[Hg] Noman Glover MD Work Phone: [facility] 10-07-2023 08:00-0500 Body temperature 99.3 [degF] Noman Glover MD Work Phone: [facility] 10-07-2023 08:00-0500 Respiratory rate 18 /min Noman Glover MD Work Phone: [facility] 10-07-2023 08:00-0500 SaO2% (BldA) [Mass fraction] 97 % Noman Glover MD Work Phone: [facility] 10-06-2023 04:41-0500 Body mass index (BMI) [Ratio] 26.61 kg/m2 Noman Glover MD Work Phone: [facility] 10-06-2023 04:41-0500 Body weight 66 kg Noman Glvoer MD Work Phone: [facility] 10-05-2023 19:24-0500 Body height 157.5 cm Noman Glover MD Work Phone: [employer] 09-29-2023 08:20-0500 SaO2% (BldA) [Mass fraction] 98 % Margareth Nunez MD Work Phone: [facility] 09-29-2023 06:08-0500 Body height 157.5 cm Margareth Nunez MD Work Phone: [facility] 09-29-2023 06:08-0500 Body mass index (BMI) [Ratio] 27.46 kg/m2 Margareth Nunez MD Work Phone: [facility] 09-29-2023 06:08-0500 Body temperature 98.8 [degF] Margareth Nunez MD Work Phone: [facility] 09-29-2023 06:08-0500 Body weight 68.1 kg Margareth Nunez MD Work Phone: [facility] 09-29-2023 06:08-0500 Diastolic blood pressure 63 mm[Hg] Margareth Nunez MD Work Phone: [facility] 09-29-2023 06:08-0500 Heart rate 81 /min Margareth Nunez MD Work Phone: [facility] 09-29-2023 06:08-0500 Respiratory rate 16 /min Margareth Nunez MD Work Phone: [facility] 09-29-2023 06:08-0500 Systolic blood pressure 119 mm[Hg] Margareth Nunez MD Work Phone: [facility] 04-24-2022 13:31-0400 Body height 157.48 cm Shaikh Crystal Work Phone: [facility] [address] DO Work Phone: 04-24-2022 13:31-0400 Body mass index (BMI) [Ratio] 29.63 kg/m2 Shaikh Crystal Work Phone: [facility] [facility] DO Work Phone: 04-24-2022 13:31-0400 Body surface area Derived from formula 1.75 m2 Shaikh Crystal Work Phone: [facility] [address] DO Work Phone: 04-24-2022 13:31-0400 Body weight 73.48 kg Shaikh Crystal Work Phone: [facility] [facility] DO Work Phone: 04-24-2022 13:31-0400 Diastolic blood pressure 60 mm[Hg] Shaikh Crystal Work Phone: [facility] [facility] DO Work Phone: 04-24-2022 13:31-0400 Heart rate 85 /min Shaikh Crystal Work Phone: [facility] [facility] DO Work Phone: 04-24-2022 13:31-0400 Systolic blood pressure 102 mm[Hg] Shaikh Crystal Work Phone: [facility] [facility] DO Work Phone: 12-10-2021 06:30-0400 Body height 160.02 cm Jeane Dykes Other [employer] Other 12-05-2021 08:47-0400 Body height 157.48 cm No PCP None [facility] [facility] DO Work Phone: 12-05-2021 08:47-0400 Body mass index (BMI) [Ratio] 27.49 kg/m2 No PCP None [facility] [facility] DO Work Phone: 12-05-2021 08:47-0400 Body surface area Derived from formula 1.69 m2 No PCP None [facility] [facility] DO Work Phone: 12-05-2021 08:47-0400 Body weight 68.18 kg No PCP None [facility] [facility] DO Work Phone: 12-05-2021 08:47-0400 Diastolic blood pressure 72 mm[Hg] No PCP None [facility] [facility] DO Work Phone: 12-05-2021 08:47-0400 Heart rate 76 /min No PCP None [facility] [facility] DO Work Phone: 12-05-2021 08:47-0400 Systolic blood pressure 104 mm[Hg] No PCP None [facility] [facility] DO Work Phone: 10-14-2021 11:23-0500 20 1 Nadir Hoskins DO Work Phone: [facility] DO Work Phone: Comment on above: [id number] 10-13-2021 22:41-0500 Diastolic blood pressure 46 mm[Hg] DO Darian Itzkowitz Work Phone: [facility] 10-13-2021 22:41-0500 Heart rate 59 /min DO Darian Itzkowitz Work Phone: [facility] 10-13-2021 22:41-0500 Systolic blood pressure 80 mm[Hg] DO Darian Itzkowitz Work Phone: [facility] 10-13-2021 21:29-0500 Respiratory rate 18 /min DO Darian Itzkowitz Work Phone: [facility] 10-13-2021 21:29-0500 SaO2% (BldA) [Mass fraction] 96 % DO Darian Itzkowitz Work Phone: [facility] 10-13-2021 13:17-0500 Body height 160.02 cm DO Darian Itzkowitz Work Phone: [facility] 10-13-2021 13:17-0500 Body mass index (BMI) [Ratio] 26.5 kg/m2 DO Darian Itzkowitz Work Phone: [facility] 10-13-2021 13:17-0500 Body temperature 97.4 [degF] DO Darian Itzkowitz Work Phone: [facility] 10-13-2021 13:17-0500 Body weight 68.03 kg DO aDrian Smiley Work Phone: [facility] 11-25-2020 15:56-0400 Body Temperature 97.5 [degF] [facility] Baljit [facility] 11-25-2020 15:56-0400 BP Diastolic 85 mm[Hg] [facility] Baljit [facility] 11-25-2020 15:56-0400 BP Systolic 130 mm[Hg] [facility] Baljit [facility] 11-25-2020 15:56-0400 Pulse (Heart Rate) 79 /min [facility] Baljit [facility] 11-25-2020 15:56-0400 Pulse Oximetry 98 % [facility] Baljit [facility] 11-25-2020 15:56-0400 Respiratory Rate 18 /min [facility] Baljit [facility] 11-25-2020 15:56-0400 SaO2% (BldA) [Mass fraction] 98 % Dariandebbie Emmanuelj luis Work Phone: [facility] 11-25-2020 15:19-0400 Height 157.48 cm [facility] Baljit [facility] 11-25-2020 05:57-0400 Body weight 83.9 kg [facility] Baljit [facility] 11-23-2020 18:10-0400 BMI (Body Mass Index) 33.9 kg/m2 [facility] 11-23-2020 18:10-0400 Body Temperature 97.9 [degF] [facility] Baljit [facility] 11-23-2020 18:10-0400 Body weight 84.2 kg [facility] Baljit [facility] 11-23-2020 18:10-0400 BP Diastolic 81 mm[Hg] Darian Baljit [facility] 11-23-2020 18:10-0400 BP Systolic 121 mm[Hg] Darian Baljit [facility] 11-23-2020 18:10-0400 Height 157.48 cm [facility] Baljit [facility] 11-23-2020 18:10-0400 Pulse (Heart Rate) 83 /min [facility] 11-23-2020 18:10-0400 Pulse Oximetry 97 % Darian Baljit [facility] 11-23-2020 18:10-0400 Respiratory Rate 19 /min [facility] Baljit [facility] 08-17-2020 03:00-0500 Body Temperature 97.5 [degF] [facility] Baljit [facility] 08-17-2020 03:00-0500 BP Diastolic 52 mm[Hg] Darian Baljit [facility] 08-17-2020 03:00-0500 BP Systolic 98 mm[Hg] Darian Baljit [facility] 08-17-2020 03:00-0500 Pulse (Heart Rate) 94 /min [facility] 08-17-2020 03:00-0500 Pulse Oximetry 99 % [facility] Baljit [facility] 08-17-2020 03:00-0500 Respiratory Rate 16 /min [facility] Baljit [facility] 08-16-2020 22:30-0500 BMI (Body Mass Index) 4648.4 kg/m2 [facility] Baljit [facility] 08-16-2020 22:30-0500 Body weight 81.1 kg [facility] Baljit [facility] 08-16-2020 22:30-0500 Height 13.21 cm [facility] Baljit [facility] 08-16-2020 22:18-0500 BP Diastolic 56 mm[Hg] Dariandebbie Smiley [facility] 08-16-2020 22:18-0500 BP Systolic 107 mm[Hg] Darian Baljit [facility] 08-16-2020 22:18-0500 Pulse (Heart Rate) 96 /min Darian Baljit [facility] 08-16-2020 22:18-0500 Pulse Oximetry 95 % [facility] Baljit [facility] 08-16-2020 22:18-0500 Respiratory Rate 18 /min [facility] Baljit [facility] 08-16-2020 15:38-0500 BMI (Body Mass Index) 28.3 kg/m2 [facility] 08-16-2020 15:38-0500 Body Temperature 97.4 [degF] [facility] Baljit [facility] 08-16-2020 15:38-0500 Body weight 72.57 kg [facility] Baljit [facility] 08-16-2020 15:38-0500 Height 160.02 cm Darian Baljit [facility] 07-26-2020 01:57-0500 BP Diastolic 58 mm[Hg] Darian Baljit [facility] 07-26-2020 01:57-0500 BP Systolic 118 mm[Hg] [facility] Baljit [facility] 07-26-2020 01:57-0500 Pulse (Heart Rate) 59 /min [facility] 07-26-2020 01:57-0500 Pulse Oximetry 97 % [facility] Baljit [facility] 07-26-2020 01:57-0500 Respiratory Rate 16 /min [facility] Baljit [facility] 07-26-2020 00:44-0500 BMI (Body Mass Index) 30.5 kg/m2 [facility] 07-26-2020 00:44-0500 Body Temperature 98.4 [degF] Dariandebbie Smiley [facility] 07-26-2020 00:44-0500 Body weight 75.74 kg [facility] 07-26-2020 00:44-0500 Height 157.48 cm [facility] Baljit [facility] 07-22-2020 22:23-0500 BP Diastolic 63 mm[Hg] Darian Baljit [facility] 07-22-2020 22:23-0500 BP Systolic 131 mm[Hg] Darian Baljit [facility] 07-22-2020 22:23-0500 Pulse (Heart Rate) 60 /min [facility] Baljit [facility] 07-22-2020 22:23-0500 Pulse Oximetry 98 % [facility] Baljit [facility] 07-22-2020 22:23-0500 Respiratory Rate 18 /min [facility] Baljit [facility] 07-22-2020 17:54-0500 BMI (Body Mass Index) 31.8 kg/m2 [facility] Baljit [facility] 07-22-2020 17:54-0500 Body Temperature 98 [degF] Darianrakesh Smiley [facility] 07-22-2020 17:54-0500 Body weight 78.9 kg Darian Baljit [facility] 07-22-2020 17:54-0500 Height 157.48 cm [facility] Baljit [facility] 07-19-2020 10:11-0500 BP Diastolic 60 mm[Hg] Darian Baljit [facility] 07-19-2020 10:11-0500 BP Systolic 138 mm[Hg] [facility] Baljit [facility] 07-19-2020 10:11-0500 Pulse (Heart Rate) 94 /min [facility] Baljit [facility] 07-19-2020 10:11-0500 Pulse Oximetry 98 % Darian Baljit [facility] 07-19-2020 10:11-0500 Respiratory Rate 16 /min [facility] Baljit [facility] 07-19-2020 07:25-0500 BMI (Body Mass Index) 30.9 kg/m2 [facility] 07-19-2020 07:25-0500 Body Temperature 98 [degF] [facility] Baljit [facility] 07-19-2020 07:25-0500 Body weight 76.7 kg [facility] Baljit [facility] 07-19-2020 07:25-0500 Height 157.48 cm [facility] Baljit [facility] 06-15-2020 21:00-0400 Body Temperature 98.1 [degF] [facility] Baljit [facility] 06-15-2020 21:00-0400 BP Diastolic 77 mm[Hg] [facility] Baljit [facility] 06-15-2020 21:00-0400 BP Systolic 124 mm[Hg] [facility] Baljit [facility] 06-15-2020 21:00-0400 Pulse (Heart Rate) 61 /min [facility] Baljit [facility] 06-15-2020 21:00-0400 Pulse Oximetry 96 % [facility] Baljit [facility] 06-15-2020 21:00-0400 Respiratory Rate 16 /min [facility] Baljit [facility] 06-15-2020 17:00-0400 BMI (Body Mass Index) 30.9 kg/m2 [facility] Liennynate [facility] 06-15-2020 17:00-0400 Body weight 76.7 kg [facility] Baljit [facility] 06-15-2020 17:00-0400 Height 157.48 cm [facility] 06-07-2020 17:00-0400 Body Temperature 97.2 [degF] Darian Baljti [facility] 06-07-2020 17:00-0400 BP Diastolic 71 mm[Hg] Darian Baljit [facility] 06-07-2020 17:00-0400 BP Systolic 104 mm[Hg] Darian Liennynate [facility] 06-07-2020 17:00-0400 Pulse (Heart Rate) 60 /min [facility] 06-07-2020 17:00-0400 Pulse Oximetry 98 % [facility] Liennynate [facility] 06-07-2020 17:00-0400 Respiratory Rate 14 /min [facility] Baljit [facility] Reg [facility] 06-07-2020 06:56-0400 Body weight 84.1 kg [facility] 06-05-2020 14:28-0400 Height 157.48 cm [facility]vis [facility] 06-05-2020 06:29-0400 BMI (Body Mass Index) 32.8 kg/m2 [facility] Encounters Encounter Date Encounter Type Care Provider Facility Start: 05-11-2024 End: 05-11-2024 ambulatory [facility] Start: 03-30-2024 End: 03-30-2024 ambulatory Kendrick Jorgensen Facility:[facility] Start: 03-30-2024 End: 03-30-2024 Evaluation and management of inpatient MD Tanner Mae Jr Work Phone: [facility] Work Phone: Start: 03-30-2024 End: 03-30-2024 observation encounter MD Tanner Mae Jr Work Phone: [facility] Work Phone: Start: 02-22-2024 End: 02-22-2024 ambulatory MD Tanner Mae Jr Work Phone: [facility] Work Phone: Start: 02-22-2024 End: 02-22-2024 Patient encounter procedure MD Tanner Mae Jr Work Phone: [facility] Work Phone: Start: 02-18-2024 End: 02-18-2024 ambulatory MD Tanner Mae Jr Work Phone: [facility] Work Phone: Start: 02-18-2024 End: 02-18-2024 Patient encounter procedure MD Tanner Mae Jr Work Phone: [facility] Work Phone: Start: 02-17-2024 Non-patient / Non-visit MD Jon Schreiber Work Phone: [facility] Work Phone: Start: 01-24-2024 End: 01-24-2024 Emergency department patient visit MD Tanner Mae Jr Work Phone: [facility] Work Phone: Start: 01-04-2024 End: 01-07-2024 ambulatory LIAM HYMAN [facility] Start: 11-11-2023 End: 11-11-2023 ambulatory DO Darian Baljit Work Phone: [facility] Work Phone: Start: 11-11-2023 End: 11-11-2023 Patient encounter procedure DO Darian Itzkowitz Work Phone: [facility] Work Phone: Start: 10-12-2023 End: 10-13-2023 ambulatory SWAPNIL [facility] Start: 10-12-2023 End: 10-12-2023 Subsequent hospital visit by physician Heydi Jiang [facility] Comment on above: Longstanding persist ent atrial fibrillation (HCC) (Primary Dx) Start: 10-11-2023 End: 10-12-2023 ambulatory [facility] Start: 10-11-2023 End: 10-11-2023 Subsequent hospital visit by physician Marcelo Champagne [facility] Work Phone: [facility] Start: 10-06-2023 ambulatory Arjun Josep EPPS Facility :[facility] Start: 10-05-2023 End: 10-07-2023 ambulatory [facility] Start: 10-05-2023 End: 10-07-2023 Emergency department patient visit Noman Glover MD Work Phone: [facility] Comment on above: Hypokalemia (Primary Dx); Dizziness; Longstanding persistent atrial fibrillation (HCC) Start: 09-29-2023 End: 09-29-2023 ambulatory [facility] Start: 09-29-2023 End: 09-29-2023 Subsequent hospital visit by physician Margareth Nunez MD Work Phone: [facility] Comment on above: Biventricular implan table cardioverter-defibrillator (ICD) in situ (Primary Dx); Elective replacement of implantable cardioverter-defibrillator (ICD) battery required; Atrial tachycardia; Paroxysmal atrial fibrillation (CMS/HCC); CAD (coronary artery disease); VT (ventricular tachycardia) (CMS/HCC) Start: 09-27-2023 End: 09-27-2023 ambulatory Amanda Grace Other [employer] Other Start: 09-27-2023 Telephone encounter Amanda Herzog her [facility] Start: 09-22-2023 End: 09-22-2023 ambulatory Amanda Grace Other [employer] Other Start: 09-22-2023 Telephone encounter Amanda Herzog her [facility] Start: 09-03-2023 ambulatory MARGARETH NUNEZ [facility] Start: 09-02-2023 End: 09-02-2023 Subsequent hospital visit by physician [facility] Comment on above: ICD (implantable car dioverter-defibrillator) battery depletion Start: 09-02-2023 End: 09-02-2023 [facility] Start: 08-31-2023 End: 08-31-2023 ambulatory Amanda Grace Other [employer] Other Start: 08-31-2023 Telephone encounter Amanda Herzog her [facility] Start: 08-09-2023 End: 08-09-2023 Patient encounter procedure PETE Grace Work Phone: [facility] Start: 08-09-2023 End: 08-09-2023 ambulatory PETE Grace Work Phone: [facility] Work Phone: Comment on above: Persistent atrial fi brillation (HCC) (Primary Dx) Start: 08-02-2023 End: 08-02-2023 ambulatory Amanda Grcae Other [employer] Other Start: 08-02-2023 Telephone encounter Amanda Herzog her [facility] Start: 07-28-2023 Telephone encounter David Osei MD Work Phone: Cardiology Start: 07-25-2023 Follow-up encounter David Osei MD Work Phone: [facility] Start: 07-25-2023 ICD Remote F/U David fairbanks MD Work Phone: [facility] Start: 07-07-2023 ambulatory Arjun EPPS Facility : [facility] Start: 06-04-2023 ambulatory Arjun EPPS Facility : [facility] Start: 06-03-2023 ambulatory Arjun EPPS Facility:[facility] Start: 04-30-2023 Follow-up encounter David Osei MD Work Phone: [facility] Start: 04-30-2023 ICD Remote F/U David fairbanks MD Work Phone: [facility] Start: 04-17-2023 Follow-up encounter David Osei MD Work Phone: [facility] Start: 04-17-2023 ICD Remote F/U David fairbanks MD Work Phone: [facility] Start: 04-05-2023 Follow-up encounter David Osei MD Work Phone: [facility] Start: 04-05-2023 ICD Remote F/U David fairbanks MD Work Phone: [facility] Start: 03-29-2023 Rx Renewal Shaikh Crystal Work Phone: [facility] [facility] DO Work Phone: Start: 03-24-2023 Follow-up encounter David Osei MD Work Phone: [facility] Start: 03-24-2023 ICD Remote F/U David fairbanks MD Work Phone: [facility] Start: 03-20-2023 Follow-up encounter David Osei MD Work Phone: [facility] Start: 03-20-2023 ICD Remote F/U David fairbanks MD Work Phone: [facility] Start: 03-15-2023 ambulatory Margareth Nunez M.D. Facility : Start: 02-28-2023 Follow-up encounter David Osei MD Work Phone: [facility] Start: 02-28-2023 ICD Remote F/U David fairbanks MD Work Phone: [facility] Start: 02-25-2023 Follow-up encounter David Osei MD Work Phone: [facility] Start: 02-25-2023 ICD Remote F/U David fairbanks MD Work Phone: [facility] Start: 01-28-2023 AUDIT Roy Fawwad Work Phone: [facility] [facility] DO Work Phone: Start: 01-27-2023 End: 01-27-2023 ambulatory ROY H FAWWAD Facility:[facility] Start: 01-26-2023 Rx Renewal Roy Fawwad Work Phone: [facility] 250 DO Work Phone: Start: 01-03-2023 End: 01-03-2023 ambulatory ROY H FAWWAD Facility:[facility] Start: 12-28-2022 End: 01-27-2023 ambulatory ROY H FAWWAD Facility:[facility] Start: 11-30-2022 End: 12-25-2022 ambulatory ROY H FAWWAD Facility:[facility] Start: 11-25-2022 Follow-up encounter David Osei MD Work Phone: [facility] Start: 11-25-2022 ICD Remote F/U David fairbanks MD Work Phone: [facility] Start: 10-28-2022 End: 11-27-2022 ambulatory [...] David Osei MD Work Phone: [facility] Start: 08-17-2022 ICD Remote F/U David fairbanks MD Work Phone: [facility] Start: 07-30-2022 End: 08-30-2022 ambulatory SHAIKH Shawna VÁZQUEZWAD Facility:[facility] Start: 07-27-2022 ambulatory Britta Tang [facility] Comment on above: Opened In Error Start: 06-30-2022 End: 07-29-2022 ambulatory SHAIKH Shawna VÁZQUEZWAD Facility:H1 Start: 06-29-2022 Other Shaikh Radhad Work Phone: [facility] [address] DO Work Phone: Start: 06-29-2022 Follow-up encounter David Osei MD Work Phone: [facility] Start: 06-29-2022 ICD Remote F/U David fairbanks MD Work Phone: [facility] Start: 05-31-2022 End: 06-29-2022 ambulatory ROY H KATHIEWAD Facility:H1 Start: 05-28-2022 Follow-up encounter David Osei MD Work Phone: [facility] Start: 05-28-2022 ICD Remote F/U David fairbanks MD Work Phone: [facility] Start: 05-06-2022 Patient encounter procedure Shaikh Crystal Work Phone: [facility] 250 DO Work Phone: Start: 04-30-2022 End: 05-30-2022 ambulatory SHAIKH Shawna ROJAS Facility:H1 Start: 04-24-2022 Current tobacco non-user cad cap copd pv dm Shaikh Crystal Work Phone: [facility] 320 DO Work Phone: Start: 04-23-2022 End: 04-24-2022 ambulatory SHAIKH Shawna ROJAS Facility:H1 Start: 04-16-2022 End: 04-17-2022 ambulatory SHAIKH Shawna ROJAS Facility:H1 Start: 04-09-2022 Follow-up encounter David Osei MD Work Phone: [facility] Start: 04-09-2022 ICD Remote F/U David fairbanks MD Work Phone: [facility] Start: 04-07-2022 Telephone encounter No PCP None [facility] 250 DO Work Phone: Start: 03-30-2022 End: 04-29-2022 ambulatory SHAIKH Shawna ROJAS Facility:H1 Start: 03-12-2022 Rx Renewal No PCP [facility] [facility] DO Work Phone: Start: 03-02-2022 End: 03-27-2022 ambulatory SHAIKH Shawna ROJAS Facility:H1 Start: 02-24-2022 Telephone encounter No PCP None [facility] 250 DO Work Phone: Start: 02-18-2022 Rx Renewal No PCP [facility] [facility] DO Work Phone: Start: 02-17-2022 Patient encounter procedure No PCP None [facility] 250 DO Work Phone: Start: 01-22-2022 Chart Update No PCP None [facility] [address] [place] Work Phone: Start: 01-08-2022 Follow-up encounter David Osei MD Work Phone: [facility] Start: 01-08-2022 ICD Remote F/U David fairbanks MD Work Phone: [facility] Start: 01-07-2022 AUDIT No PCP None -[facility] 320 DO Work Phone: Start: 12-31-2021 End: 12-31-2021 ambulatory Jeane Fitt Other [employer] Other Start: 12-31-2021 Telephone encounter Jeane Juan [facility] Start: 12-26-2021 End: 12-26-2021 ambulatory Jeane Fitt Other [employer] Other Start: 12-26-2021 Telephone encounter Jeane [facility] Start: 12-23-2021 ([facility] R A/c) [facility] Repeat A/C Jeane Juan [facility] Start: 12-23-2021 End: 12-23-2021 ambulatory Jeane Fitt Other [employer] Other Start: 12-17-2021 (Repeat ACH) Jeane Juan [facility] Start: 12-17-2021 End: 12-17-2021 ambulatory Jeane Fitt Other [employer] Other Start: 12-17-2021 Telephone encounter Jeane Fitt [facility] Start: 12-12-2021 AUDIT No PCP None [facility] 320 DO Work Phone: Start: 12-11-2021 End: 12-11-2021 ambulatory Jeane Fitt Other [employer] Other Start: 12-11-2021 Telephone encounter Jeane Jania Higuera [facility] Start: 12-10-2021 (Repeat ACH) Jeane Juan [facility] Start: 12-10-2021 End: 12-10-2021 ambulatory Jeane Fitt Other [employer] Other Start: 12-05-2021 Current tobacco non-user cad cap copd pv dm No PCP None [facility] 320 DO Work Phone: Start: 11-26-2021 End: 11-26-2021 ambulatory Jeane Fitt Other [employer] Other Start: 11-26-2021 Telephone encounter Jeanealfredo Dykes [facility] Start: 11-19-2021 (Repeat ACH) Jeane Dykes [facility] Start: 11-19-2021 End: 11-19-2021 ambulatory Jeane Fitt Other [employer] Other Start: 11-19-2021 Telephone encounter Jeane [facility] Start: 11-18-2021 End: 11-18-2021 ambulatory Jeane Fitt Other [employer] Other Start: 11-18-2021 Telephone encounter Jeane Juan [facility] Start: 11-11-2021 ([facility] R A/c) [facility] Repeat A/C Jeane Juan [facility] Start: 11-11-2021 End: 11-11-2021 ambulatory Jeane Fitt Other [employer] Other Start: 11-10-2021 End: 11-10-2021 ambulatory Jeane Fitt Other [employer] Other Start: 11-10-2021 Telephone encounter Jeane Juan [facility] Start: 11-05-2021 (Repeat ACH) Jeane Dykes [facility] Start: 11-05-2021 End: 11-05-2021 ambulatory Jeane Fitt Other [employer] Other Start: 11-03-2021 End: 11-03-2021 ambulatory Jeane Fitt Other [employer] Other Start: 11-03-2021 Telephone encounter Jeane Juan [facility] Start: 10-30-2021 End: 10-30-2021 ambulatory Jeane Fitt Other [employer] Other Start: 10-30-2021 Telephone encounter Jeane Juan [facility] Start: 10-29-2021 (Repeat ACH) Jeane Juan [facility] Start: 10-29-2021 End: 10-29-2021 ambulatory Jeane Fitt Other [employer] Other Start: 10-29-2021 Telephone encounter Jeane Juan [facility] Start: 10-23-2021 (Repeat ACH) Jeane Dykes [facility] Start: 10-23-2021 End: 10-23-2021 ambulatory Jeane Fitt Other [employer] Other Start: 10-22-2021 Patient encounter procedure Nadir Hoskins DO Work Phone: [facility] 250 DO Work Phone: Start: 10-13-2021 Evaluation and management of inpatient DO Darian Smiley Work Phone: [facility] Start: 09-09-2021 End: 09-09-2021 ambulatory Jeane Fitt Other [employer] Other Start: 09-09-2021 Telephone encounter Jeanealfredo Higuera [facility] Start: 09-04-2021 ([facility] R A/c) [facility] Repeat A/C Jeane Juan [facility] Start: 09-04-2021 End: 09-04-2021 ambulatory Jeane Fitt Other [employer] Other Start: 09-04-2021 Telephone encounter Jeane Higuera [facility] Start: 09-04-2021 Registered Recurring DO Sena Smiley Work Phone: [facility] Start: 08-04-2021 End: 08-04-2021 ambulatory Jeanealfredo Rogelt Other [employer] Other Start: 08-04-2021 Telephone encounter Jeane Dykes [facility] Start: 07-28-2021 Patient encounter procedure Nadir Hoksins DO Work Phone: [facility] 250 DO Work Phone: Start: 07-17-2021 ([facility] R A/c) [facility] Repeat A/C Jeane Dykes [facility] Start: 07-17-2021 End: 07-17-2021 ambulatory Jeane Fitt Other [employer] Other Start: 06-30-2021 ([facility] R A/c) [facility] Repeat A/C Jeane Juan [facility] Start: 06-30-2021 End: 06-30-2021 ambulatory Jeane Fitt Other [employer] Other Start: 06-20-2021 Telephone encounter Jeanealfredo Higuera [facility] Start: 06-09-2021 ([facility] R A/c) [facility] Repeat A/C Jeane Juan [facility]t [facility] Start: 11-23-2020 End: 11-25-2020 Evaluation and management of inpatient Darian Itzkowitz -[facility] Start: 09-17-2020 Registered Recurring Darianrakesh Cantor tz [facility] Start: 08-16-2020 End: 08-17-2020 Evaluation and management of inpatient Darian Itzkowitz -[facility] Start: 08-05-2020 Registered Recurring Darian Devaughn tz [facility] Start: 07-26-2020 End: 07-26-2020 Emergency department patient visit Darian Itzkowitz -Emergency Room Start: 07-22-2020 End: 07-22-2020 Emergency department patient visit Darian Itzkowitz -Emergency Room Start: 07-19-2020 End: 07-19-2020 Emergency department patient visit Darian Itzkowitz -Emergency Room Start: 06-15-2020 End: 06-15-2020 Evaluation and management of inpatient Darian Itzkowitz -[facility] Start: 06-05-2020 End: 06-07-2020 Evaluation and management of inpatient Darian Itzkowitz -[facility] Start: 11-08-2019 ambulatory UNKNOWN PROVIDER Facili ty:[facility] Start: 10-12-2018 End: 10-12-2018 Patient encounter procedure MARGARETH MAYRA Facility:[facility] Start: 10-07-2018 Patient encounter procedure JAMEEL VALENZUELA Facility:7 Start: 08-04-2018 End: 08-05-2018 Patient encounter procedure MARGARETH MAYRA Facility:[facility] Start: 08-02-2018 Patient encounter procedure SETH VASQUEZ Facility:[id number] Start: 06-27-2018 End: 07-01-2018 Evaluation and management of inpatient MARGARETH MAYRA Facility:[facility] Start: 05-12-2018 End: 05-12-2018 Patient encounter procedure MARGARETH MAYRA Facility:[facility] Start: 11-29-2003 Evaluation and management of inpatient Darian Itzkowitz -[facility] Patient encounter status No PCP None -[facility] 320 DO Work Phone: Procedures Date Procedure [...] MG FOR LOW K Azalea Mera Trell OCEANOLOGIST - OPERATIONS CLERK Work Phone: Start: 10-07-2023 Prothrombin time Swapnil Brand MD Work Phone: Start: 10-06-2023 Potassium serum plasma/whole blood Feliz Brand MD Work Phone: Start: 10-06-2023 BASIC METABOLIC PANEL W/ REFLEX TO MG FOR LOW K Swapnil Brand MD Work Phone: Start: 10-06-2023 Prothrombin time Azalea Mera Trell OCEANOLOGIST - OPERATIONS CLERK Work Phone: Start: 10-06-2023 Intermittent pulse oximetry Azalea Mera Trell OCEANOLOGIST - [facility] Work Phone: Start: 10-05-2023 Assay [...] Phone: Start: 09-29-2023 Electrophysiology study Jameel Valenzuela OCEANOLOGIST-OPERATIONS CLERK Work Phone: Start: 09-29-2023 Ecg routine ecg w/least 12 lds trcg only w/o i&r Yessi Miller OCEANOLOGIST-OPERATIONS CLERK Work Phone: Start: 09-29-2023 Basic metabolic panel calcium total Yessi Miller OCEANOLOGIST-OPERATIONS CLERK Work Phone: Start: 09-29-2023 EXTRA TUBES Margareth [...] A and B virus antigen assay [facility] Work Phone: Start: 10-13-2021 CT of abdomen and pelvis without contrast DO [facility] Work Phone: Start: 10-13-2021 Plain chest [facility]-ray [facility] Work Phone: Start: 11-25-2020 Esophagogastroduodenoscopy Darian dietz [...] thorax Nadir Hoskins DO Work Phone: Tonsillectomy Ndair fuentes DO Work Phone: Plan of Treatment Date Care Activity Detail Author Start: 2034 PNEUMOCOCCAL (3 - PPSV23 if available, else PCV20) PNEUMOCOCCAL (3 - PPSV23 if available, else PCV20) [facility] Start: 2034 PNEUMOCOCCAL (3 - PPSV23 or PCV20) PNEUMOCOCCAL (3 - PPSV23 or PCV20) [facility] Start: 2034 Pneumococcal vaccination [facility] Start: 2034 Pneumococcal Vaccine: Pediatrics (0 to 5 Years) and At-Risk Patients (6 to 64 Years) (3 - PPSV23 or PCV20) Pneumococcal Vaccine: Pediatrics (0 to 5 Years) and At-Risk Patients (6 to 64 Years) (3 - PPSV23 or PCV20) [facility] Start: 08-17-2025 Lipid 1996 panel - Serum or Plasma Lipid Screening [facility] Start: 08-17-2025 LIPID SCREEN LIPID SCREEN [facility] Start: 09-29-2024 Creatinine measurement Creatinine Level [facility] Start: 09-29-2024 Potassium measurement Potassium Level [facility] Start: 08-30-2024 Cholesterol [Mass/volume] in Serum or Plasma Cholesterol [facility] Start: 04-13-2024 [facility] Start: 04-12-2024 [facility] Start: 04-11-2024 [facility] Start: 04-10-2024 [facility] Start: 04-09-2024 [facility] Start: 04-08-2024 [facility] Start: 04-07-2024 [facility] Start: 04-06-2024 [facility] Start: 04-05-2024 [facility] Start: 04-04-2024 [facility] Start: 04-03-2024 [facility] Start: 04-02-2024 [facility] Start: 04-01-2024 [facility] Start: 03-31-2024 [facility] Start: 03-30-2024 Bacteria identified in Urine by Culture [facility] Start: 03-30-2024 End: 03-30-2024 [facility] Start: 03-30-2024 Referral to Underpresser Hand [facility] Start: 03-30-2024 Referral to camera repairman [facility] Start: 03-30-2024 Hospital admission [facility] Start: 03-29-2024 Plain chest X-ray XR chest 2V* [facility] Start: 03-29-2024 XR Chest 2 Views [facility] Start: 03-29-2024 End: 03-29-2024 Patient encounter procedure 03/29/2024 8:30 AM EDT Office Visit [facility] [address] [facility] [address] [place] [id number] Jameel Valenzuela E, OCEANOLOGIST-OPERATIONS CLERK [address] [facility] [address] [place] [address] [facility] Start: 03-19-2024 DIABETES SCREEN DIABETES SCREEN [facility] Start: 03-19-2024 Diabetes Screening Diabetes Screening [facility] Start: 02-22-2024 Patient referral [facility] Work Phone: Start: 01-24-2024 Plain chest X-ray XR chest 1V portable [facility] Start: 01-24-2024 XR Chest Single view [facility] Start: 10-22-2023 End: 10-22-2023 Patient encounter procedure 10/22/2023 9:30 AM EST Office Visit [facility] [address] [place] [phone] Swapnil Brand MD [address] [place] [address] new pat/ hosp f/u [facility] Comment on above: new pat/ hosp f/u Start: 10-18-2023 End: 10-18-2023 Patient encounter procedure 10/18/2023 2:50 PM EST Appointment [facility] [address] [place] [address] INR- new Lovenox (CPA 10/06/24 Tracey) [facility] Comment on above: INR- new Lovenox (CPA 10/06/24 Tracey) Start: 10-13-2023 End: 10-06-2024 Basic metabolic 2000 panel - Serum or Plasma Basic Metabolic Panel Lab Routine Hypokalemia Expected: 10/13/2023, Expires: 10/06/2024 [facility] Comment on above: Expected: 10/13/2023, Expires: Start: 10-13-2023 End: 10-06-2024 CBC panel - Blood by Automated count CBC Lab Routine Dizziness Expected: 10/13/2023, Expires: 10/06/2024 [facility] Comment on above: Expected: 10/13/2023, Expires: Start: 10-13-2023 End: 10-13-2023 Patient encounter procedure 10/13/2023 11:00 AM EST Office Visit [facility] [address] [facility] [address], [address] [place] [address] Ajay Robles, [address] [facility] [address] [place] [address] Robles [facility] Comment on above: per Dr. Robles Start: 10-12-2023 End: 10-12-2023 Patient encounter procedure 10/12/2023 3:50 PM EST Appointment [facility] [address] [place] [address] INR- new Lovenox (CPA 10/06/24 Tracey) [facility] Comment on above: INR- new Lovenox (CPA 10/06/24 Tracey) Start: 10-08-2023 End: 10-08-2023 Patient encounter procedure 10/08/2023 10:30 AM EST Appointment [facility] [address] [place] [address] INR- new Lovenox (CPA 10/06/24 Tracey) [facility] Comment on above: INR- new Lovenox (CPA 10/06/24 Tracey) Start: 10-06-2023 End: 10-06-2023 Clinical Support 10/06/2023 8:30 AM EST Clinical Support [facility] [address] [place] [id number] [facility] Start: 09-29-2023 End: 09-29-2023 Admission to same day surgery center 09/29/2023 2:00 PM EST - 09/29/2023 4:00 PM EST Surgery [facility] [address] [place] [facility] [place] [address] Margareth Nunez MD [address] [facility] Medical [facility] [address] [place] [address] ICD BIV Generator Change Out [53097 (CPT )] [facility] Comment on above: ICD BIV Generator Change Out [40238 (CPT )] Start: 09-29-2023 Subsequent hospital visit by physician 09/29/2023 2:00 PM EST Hospital Encounter [facility] [address] [place] [facility] [place] [address] Margareth Nunez MD [address] [facility] [address] [place] [address] Biventricular implantable cardioverter-defibrilla tor (ICD) in situ; Elective replacement of implantable cardioverter-defibrilla tor (ICD) battery required [facility] Comment on above: Biventricular implantable cardioverter-d efibrillator (ICD) in situ; Elective replacement of implantable cardioverter-defibrillator (ICD) battery required Start: 09-09-2023 End: 12-09-2023 Basic metabolic 2000 panel - Serum or Plasma BASIC METABOLIC PNL Lab Routine Persistent atrial fibrillation (HCC) Expected: 09/09/2023 (Approximate), Expires: 12/09/2023 [facility] Work Phone: Comment on above: Expected: 09/09/2023 (Approximate), Expi res: 12/09/2023 Start: 09-09-2023 End: 12-09-2023 CBC panel - Blood by Automated count CBC Lab Routine Persistent atrial fibrillation (HCC) Expected: 09/09/2023 (Approximate), Expires: 12/09/2023 [facility] Work Phone: Comment on above: Expected: 09/09/2023 (Approximate), Expi res: 12/09/2023 Start: 09-09-2023 End: 12-09-2023 CONFIRM BLOOD TYPE CONFIRM BLOOD TYPE Blood Bank Routine Persistent atrial fibrillation (HCC) Expected: 09/09/2023 (Approximate), Expires: 12/09/2023 [facility] Work Phone: Comment on above: Expected: 09/09/2023 (Approximate), Expi res: 12/09/2023 Start: 09-09-2023 End: 12-09-2023 TYPE AND SCREEN,30 DAY TYPE AND SCREEN,30 DAY Blood Bank Routine Persistent atrial fibrillation (HCC) Expected: 09/09/2023 (Approximate), Expires: 12/09/2023 [facility] Work Phone: Comment on above: Expected: 09/09/2023 (Approximate), Expi res: 12/09/2023 Start: 08-30-2023 Annual Wellness Visit (Medicare Advantage) Annual Wellness Visit (Medicare Advantage) [facility] Start: 04-30-2023 Covid-19 Vaccine ( season) Covid-19 Vaccine ( season) [facility] Start: 04-30-2023 Influenza vaccination [facility] Start: 03-30-2023 Influenza vaccination Flu vaccine (#1) [facility] Start: 03-15-2023 FUV, Provider: Margareth Nunez, Status: Pen, Time: 1:40 PM FUV, Provider: Margareth Nunez, Status: Pen, Time: 1:40 PM -[facility] 250 DO Work Phone: Start: 11-14-2022 Echocardiography [facility] Start: 10-27-2022 FUV, Provider: Margareth Nunez, Status: Pen, Time: 3:00 PM FUV, Provider: Margareth Nunez, Status: Pen, Time: 3:00 PM -[facility] 320 DO Work Phone: Start: 05-30-2022 Influenza vaccination Influenza Vaccine (#1) [facility] Start: 05-25-2022 FUV, Provider: Inna Jesus, Status: Pen, Time: 1:30 PM FUV, Provider: Inna Jesus, Status: Pen, Time: 1:30 PM -[facility] 250 DO Work Phone: Start: 05-20-2022 BP CONTROLLED (<130/80) BP CONTROLLED (<130/80) [facility] Start: 04-30-2022 Influenza vaccination [facility] Start: 04-24-2022 FUV, Provider: Margareth Nunez, Status: Pen, Time: 1:20 PM FUV, Provider: Margareth Nunez, Status: Pen, Time: 1:20 PM -[facility] [address] [place] Work Phone: Start: 04-15-2022 FUV, Provider: Inna Jesus, Status: Pen, Time: 4:00 PM FUV, Provider: Inna Jesus, Status: Pen, Time: 4:00 PM -[facility] 250 DO Work Phone: Start: 03-25-2022 FUV, Provider: Inna Jesus, Status: Pen, Time: 8:00 AM FUV, Provider: Inna Jesus, Status: Pen, Time: 8:00 AM -[facility] 250 DO Work Phone: Start: 03-12-2022 Diabetes mellitus screening Diabetes Screening [facility] Start: 02-23-2022 FUV, Provider: Inna Jesus, Status: Pen, Time: 8:00 AM FUV, Provider: Inna Jesus, Status: Pen, Time: 8:00 AM -[facility] 250 DO Work Phone: Start: 01-21-2022 [facility], Provider: Margareth Nunez, Status: Pen, Time: 9:00 AM [facility], Provider: Margareth Nunez, Status: Pen, Time: 9:00 AM -[facility] 320 DO Work Phone: Start: 01-20-2022 [facility], Provider: Soco Bhardwaj, Status: Pen, Time: 8:00 AM [facility], Provider: Soco Bhardwaj, Status: Pen, Time: 8:00 AM -[facility] 320 DO Work Phone: Start: 12-31-2021 EP ABLAT, Provider: [facility] HUMAN FACTORS SCIENTIST [id number], Status: Pen, Time: 11:00 AM EP ABLAT, Provider: [facility] HUMAN FACTORS SCIENTIST 5,[id number], Status: Pen, Time: 11:00 AM -[facility] 320 DO Work Phone: Start: 12-31-2021 [facility], Provider: Soco Bhardwaj, Status: Pen, Time: 11:00 AM [facility], Provider: Soco Bhardwaj, Status: Pen, Time: 11:00 AM -[facility] 320 DO Work Phone: Start: 12-31-2021 [facility], Provider: Margareth Nunez, Status: Pen, Time: 8:00 AM [facility], Provider: Margareth Nunez, Status: Pen, Time: 8:00 AM -[facility] 320 DO Work Phone: Start: 12-31-2021 JOVITA, Provider: [facility] HUMAN FACTORS SCIENTIST 1,[id number], Status: Pen, Time: 8:00 AM JOVITA, Provider: [facility] HUMAN FACTORS SCIENTIST 1,[id number], Status: Pen, Time: 8:00 AM -[facility] 320 DO Work Phone: Start: 11-19-2021 FUV, Provider: Nadir Hoskins, Status: Pen, Time: 9:20 AM FUV, Provider: Nadir Hoskins, Status: Pen, Time: 9:20 AM -[facility] 250 DO Work Phone: Start: 10-29-2021 FUV, Provider: Inna Jesus, Status: Pen, Time: 2:30 PM FUV, Provider: Inna Jesus, Status: Pen, Time: 2:30 PM -[facility] 250 DO Work Phone: Start: 10-13-2021 Bacteria identified in Blood by Culture Blood Culture [facility] Start: 10-13-2021 Bacteria identified in Urine by Culture Urine Culture [facility] Start: 08-17-2021 Hepatitis B surface antibody level LDL CHOLESTEROL [facility] Start: 05-11-2021 COVID-19 VACCINE (3 - Booster for Pfizer series) COVID-19 VACCINE (3 - Booster for Pfizer series) [facility] Start: 02-03-2021 COVID-19 VACCINE (3 - Booster for Pfizer series) COVID-19 VACCINE (3 - Booster for Pfizer series) [facility] Start: 02-03-2021 COVID-19 VACCINE (3 - Pfizer series) COVID-19 VACCINE (3 - Pfizer series) [facility] Start: 2019 Measurement of occult blood in single stool specimen [facility] Start: 2019 Screening for malignant neoplasm of breast Breast cancer screen [facility] Start: 2019 Screening for malignant neoplasm of colon CRC Screening [facility] Start: 2019 Shingles (RZV) Vaccine (1 of 2) Shingles (RZV) Vaccine (1 of 2) [facility] Start: 2019 Shingles vaccine (1 of 2) Shingles vaccine (1 of 2) [facility] Start: 2019 SHINGRIX VACCINE (1 of 2) SHINGRIX VACCINE (1 of 2) [facility] Start: 2019 Zoster Vaccines (1 of 2) Zoster Vaccines (1 of 2) [facility] Start: 2014 COLOGUARD (FIT-DNA) COLOGUARD (FIT-DNA) [facility] Start: 2014 Colonoscopy COLONOSCOPY [facility] Start: 2014 COLORECTAL CANCER SCREENING COLORECTAL CANCER SCREENING [facility] Start: [address] COLONOGRAPHY [facility] Start: 2014 FECAL OCCULT BLOOD FECAL OCCULT BLOOD [facility] Start: 2014 Screening for malignant neoplasm of colon [facility] Start: 2014 SIGMOIDOSCOPY SIGMOIDOSCOPY [facility] Start: 02-06-2013 DTaP/Tdap/Td vaccine (1 - Tdap) DTaP/Tdap/Td vaccine (1 - Tdap) [facility] Start: 02-06-2013 DTaP/Tdap/Td Vaccines (1 - Tdap) DTaP/Tdap/Td Vaccines (1 - Tdap) [facility] Start: 02-06-2013 Urine microalbumin profile [facility] Start: 2009 Mammography [facility] Start: 2009 Screening for malignant neoplasm of breast [facility] Start: 1999 HPV TESTING HPV TESTING [facility] Start: 1999 Screening for malignant neoplasm of cervix [facility] Start: 1990 PAP TESTING PAP TESTING [facility] Start: 1990 Screening for malignant neoplasm of cervix [facility] Start: 1988 DTaP/Tdap/Td vaccine (1 - Tdap) DTaP/Tdap/Td vaccine (1 - Tdap) [facility] Start: 1987 ANNUAL PCP TEAM CHRONIC DISEASE VISIT ANNUAL PCP TEAM CHRONIC DISEASE VISIT [facility] Start: 1987 BP CONTROLLED (<130/80) BP CONTROLLED (<130/80) [facility] Start: 1987 HEPATITIS C SCREENING HEPATITIS C SCREENING [facility] Start: 1987 Hepatitis C screening [facility] Start: 1987 HIV SCREENING HIV SCREENING [facility] Start: 1987 SPIROMETRY SPIROMETRY [facility] Start: 1987 Tetanus + diphtheria + acellular pertussis vaccine (product) Tdap [facility] Start: 1984 HIV screening [facility] Start: 1981 Depression Screen Depression Screen [facility] Start: 1979 Lipid panel Lipids [facility] Start: 1970 MMR Vaccines (1 of 1 - Standard series) MMR Vaccines (1 of 1 - Standard series) [facility] Start: 01-09-1970 COVID-19 Vaccine (#1) COVID-19 Vaccine (#1) [facility] Start: 1969 Creatinine measurement Creatinine Level [facility] Start: 1969 Ejection Fraction Ejection Fraction [facility] Start: 1969 HEPATITIS B (1 of 3 - 3-dose series) HEPATITIS B (1 of 3 - 3-dose series) [facility] Start: 1969 Hepatitis B Vaccine (1 of 3 - 3-dose series) Hepatitis B Vaccine (1 of 3 - 3-dose series) [facility] Start: 1969 Hepatitis B Vaccines (1 of 3 - 3-dose series) Hepatitis B Vaccines (1 of 3 - 3-dose series) [facility] Start: 1969 HIV screening HIV Screening [facility] Start: 1969 Lipid panel Lipid Panel [facility] Start: 1969 Medicare Annual Wellness Visit Medicare Annual Wellness Visit (AWV) [facility] Start: 1969 Potassium measurement Potassium Level [facility] Start: 1969 Screening [facility] malignant neoplasm of colon [facility] Start: 1969 Thyroid stimulating hormone measurement TSH Level [facility] Anion gap measurement [facility] aPTT in Platelet poo r plasma by Coagulation assay [facility] Bacteria identified in Blood by Culture [facility] Bacteria identified in Urine by Culture [facility] End: 10-08-2023 Basic Metabolic Panel w/ Reflex to MG Basic Metabolic Panel w/ Reflex to MG Lab Routine Daily for 3 Days starting 10/06/2023 until 10/08/2023, 1 completed beneSol Comment on above: Daily for 3 Days starting 10/06/2023 unt il 10/08/2023, 1 completed Basophil count [facility] Basophil percent differential count [facility] Basophils [#/volume] in Blood by Automated count [facility] Basophils/100 leukoc ytes in Blood by Automated count [facility] Calcium [Mass/volume ] in Serum or Plasma [facility] Calculated LDL cholesterol level [facility] Carbon dioxide, tota l [Moles/volume] in Serum or Plasma [facility] Cardiac Device Check - In Clinic Cardiac Device Check - In Clinic Implantable Cardiac Device Routine ICD (implantable cardioverter-defibrilla tor) battery depletion 09/02/2023 1:53 PM EST [facility] Service Area Work Phone: End: 10-08-2023 CBC W Auto Differential panel - Blood CBC with auto differential Lab Routine Daily for 3 Days starting 10/06/2023 until 10/08/2023, 2 completed beneSol Comment on above: Daily for 3 Days starting 10/06/2023 unt il 10/08/2023, 2 completed Chloride [Moles/volu me] in Serum or Plasma [facility] Cholesterol.total/Ch olest christine in HDL [Mass Ratio] in Serum or Plasma [facility] End: 10-06-2023 Clostridium Difficile Toxin/Antigen Clostridium Difficile Toxin/Antigen Microbiology Routine 36 Hours Expiring for 36 Hours starting 10/06/2023 until 10/06/2023 beneSol Comment on above: 36 Hours Expiring for 36 Hours starting 10/06/2023 until 10/06/2023 Creatinine and Glome rular filtration rate.predicted panel - Serum, Plasma or Blood [facility] ECG 12 lead STAT ECG 12 lead STA T ECG STAT 09/29/2023 7:03 AM EST [facility] Service Area Work Phone: Eosinophil percent differential count [facility] Eosinophils [#/volum e] in Blood [facility] Eosinophils/100 leukocytes in Blood by Automated count [facility] Erythrocyte distribu tion width [Ratio] by Automated count [facility] Erythrocyte mean corpuscular volume determination [facility] Erythrocytes [#/volu me] in Blood [facility] Erythrocytes [#/volu me] in Blood [facility] Glucose [Mass/volume ] in Serum or Plasma [facility] Hematocrit [Volume Fraction] of Blood [facility] Hematocrit [Volume Fraction] of Blood [facility] Hemoglobin [Mass/vol ume] in Blood [facility] Hemoglobin [Mass/vol ume] in Blood [facility] Hemoglobin distribut ion, width determination [facility] ICD BIV GENERATOR CH GERTRUDIS OUT ICD BIV GENERATOR CHANGE OUT Biventricular implantable cardioverter-defibrilla tor (ICD) in situ Elective replacement of implantable cardioverter-defibrilla tor (ICD) battery required [facility] Work Phone: INR in Platelet poor plasma by Coagulation assay [facility] Leukocytes [#/volume ] corrected for nucleated erythrocytes in Blood by Automated coun [facility] Leukocytes [#/volume ] in Blood [facility] Leukocytes [#/volume ] in Blood [facility] Lymphocyte count [facility] Lymphocyte percent differential count [facility] Lymphocytes [#/volum e] in Blood by Automated count [facility] Lymphocytes/100 leukocytes in Blood by Automated count [facility] Magnesium measurement [facility] MCH [Entitic mass] b y Automated count [facility] MCHC [Mass/volume] b y Automated count [facility] MCV [Entitic volume] by Automated count [facility] Mean corpuscular hemoglobin concentration determination [facility] Mean corpuscular hemoglobin determination [facility] Measurement of renal function [facility] Monocyte count [facility] Monocyte percent differential count [facility] Monocytes [#/volume] in Blood by Automated count [facility] Monocytes/100 leukoc ytes in Blood by Automated count [facility] Neutrophil count [facility] Neutrophil percent differential count [facility] Neutrophils [#/volum e] in Blood by Automated count [facility] Neutrophils/100 leukocytes in Blood by Automated count [facility] Nucleated erythrocyt es [Presence] in Blood by Automated count [facility] Oxygen therapy [Mini mum Data Set] Initiate Oxygen Therapy Protocol Respiratory Care Routine Daily until discontinued starting 10/06/2023 beneSol Comment on above: Daily until discontinued starting 2023 Patient Education [facility] Patient referral [facility] Platelet mean volume [Entitic volume] in Blood by Automated count [facility] Platelet mean volume determination [facility] Platelets [#/volume] in Blood [facility] Platelets [#/volume] in Blood [facility] Potassium [Moles/vol ume] in Serum or Plasma [facility] End: 10-20-2023 Protime-INR Protime-INR Lab Routine Daily for 2 Weeks starting 10/07/2023 until 10/20/2023, 1 completed beneSol Comment on above: Daily for 2 Weeks starting 10/07/2023 un til 10/20/2023, 1 completed End: 09-07-2024 Radiologic exam chest 2 views XR CHEST 2V FRONTAL/LAT Radiology Routine Persistent atrial fibrillation (HCC) 1 Occurrences starting 08/09/2023 until 09/07/2024 [facility] Work Phone: Comment on above: 1 Occurrences starting 08/09/2023 until 09/07/2024 Sodium [Moles/volume ] in Serum or Plasma [facility] End: 10-06-2023 SPECIMEN REJECTION [facility] [email or web address] Comment on above: Once for 1 Occurrences starting 10/06/19 24 until 10/06/2023 Urea nitrogen [Mass/volume] in Serum or Plasma [facility] VLDL cholesterol measurement [facility] XR Humerus - right Views [facility] XR Shoulder - right Views [facility] Immunizations Immunization Date Immunization Notes Care Provider Sherif bailey 12-09-2020 Pfizer-BioNTech COVID-19 Vacc 30 MCG/0.3ML Intramuscular Suspension Nadir Hoskins DO Work Phone: [facility] 11-18-2020 COVID-19 vaccine, ag e 12+ yr (Piczo-DrivewyzeNTField Squared - PURPLE TOP) David Osei MD Work Phone: [facility] 06-09-2020 pneumococcal polysaccharide vaccine, 23 valent David Osei MD Work Phone: [facility] 06-07-2020 influenza, seasonal, injectable David Osei MD Work Phone: [facility] 06-07-2020 influenza virus vaccine, unspecified formulation David Osei MD Work Phone: [facility] 06-06-2020 influenza, injectabl e, quadrivalent, preservative free Darian Itzkowinate [facility] 06-06-2020 influenza virus vaccine, unspecified formulation Anju Mason MILLER Work Phone: [facility] 08-31-2019 Influenza, injectabl e, Madin Denise Canine Kidney, preservative free, quadrivalent Darian Itzkonynate [facility] 08-30-2019 influenza virus vaccine, unspecified formulation Nadir Hoskins DO [facility] Work Phone: 06-29-2018 influenza, injectabl e, quadrivalent, preservative free David Osei MD Work Phone: [facility] 06-27-2018 influenza virus vaccine, unspecified formulation Nadir Hoskins DO Work Phone: [facility] 250 DO Work Phone: 06-17-2018 influenza, injectabl e, quadrivalent, preservative free Jeane Dykes Other [facility] 05-10-2017 influenza, seasonal, injectable, preservative free David Osei MD Work Phone: [facility] 05-03-2017 influenza, injectabl e, quadrivalent, preservative free David Osei MD Work Phone: [facility] 04-30-2017 influenza virus vaccine, unspecified formulation Nadir Hoskins DO Work Phone: [facility] 250 DO Work Phone: 05-08-2016 pneumococcal conjuga te vaccine, 13 valent David Osei MD Work Phone: [facility] 04-30-2016 influenza virus vaccine, unspecified formulation Nadir Hoskins DO Work Phone: [facility] 250 DO Work Phone: 04-30-2016 pneumococcal conjuga te vaccine, 7 valent Nadir Hoskins DO Work Phone: [facility] 250 DO Work Phone: 04-24-2016 influenza, seasonal, injectable, preservative free David Osei MD Work Phone: [facility] 05-30-2015 influenza virus vaccine, unspecified formulation Nadir Hoskins DO Work Phone: [facility] 250 DO Work Phone: 09-18-2013 influenza virus vaccine, unspecified formulation Nadir Hoskins DO Work Phone: [facility] 250 DO Work Phone: 02-05-2013 TD(adult) unspecifie d formulation David Osei MD Work Phone: [facility] 02-05-2013 Td, unspecified formulation Marcelo Champagne [facility] Work Phone: [facility] 08-30-2011 pneumococcal polysaccharide vaccine, 23 valent Nadir Hoskins DO Work Phone: [facility] 250 DO Work Phone: influenza virus vaccine, unspecified formulation Nadir Hoskins DO Work Phone: [employer] 250 DO Work Phone: Comment on above: 2008 2009 2010 2011 2012 pneumococcal polysaccharide vaccine, 23 valent Nadir Hoskins DO [facility] Phone[facility] Work Phone: Comment on above: 2008 Payers Date Payer Category Payer Private Health Insurance [facility] DUAL COMPLETE [id number] 2023-Present [address] [address] [place] [address] [id number] 2023 Self-pay [id number] 2020 Medicare [facility] MEDICARE [facility] DUAL COMPLETE HMO SNP [id number] 2020-Present [phone] [address] [place] [address] Medicare [id number] 2020 Medicare [id number]. [id number] 2020 Medicaid MEDICAID [facility] MEDICAID [id number] 2020-Present [phone] [address] [place] [address] Medicaid [id number]. [id number] 2017 Private Health Insurance [id number] 2017 Unknown [id number] 2003 Medicaid [id number]. 1.13.159.2. [id number] 1969 Unknown [id number] 2.16.840.1.895120.3.579.2. 355 1969 Unknown [id number] 2.16.840.1.546083.3.579.2. 355 1969 Unknown [id number] 2.16.840.1.203318.3.579.2. 355 1969 Unknown [id number] 2.16.840.1.921437.3.579.2. 355 1969 Unknown [id number] 2.16.840.1.048409.3.579.2. 355 1969 Unknown [id number] 2.16.840.1.646516.3.579.2. 355 1969 Unknown [id number] 2.16.840.1.544501.3.579.2. 732 1969 Unknown [id number] 2.16.840.1.180180.3.579.2. 593 1969 Unknown [id number] 2.16.840.1.701101.3.579.2. 593 1969 Unknown [id number] 2.16.840.1.830838.3.579.2. 593 1969 Unknown [id number] 2.16.840.1.684980.3.579.2. 593 1969 Unknown [id number] 2.16.840.1.040209.3.579.2. 593 1969 Unknown [id number] 2.16.840.1.909007.3.579.2. 593 1969 Unknown [id number] 2.16.840.1.190238.3.579.2. 593 1969 Unknown [id number] 2.16.840.1.853798.3.579.2. 593 1969 Unknown [id number] 2.16.840.1.962848.3.579.2. 593 1969 Unknown [id number] 2.16.840.1.870805.3.579.2. 593 1969 Unknown [id number] 2.16.840.1.259593.3.579.2. 593 1969 Unknown [id number] 2.16.840.1.714454.3.579.2. 593 1969 Unknown [id number] 2.16.840.1.453343.3.579.2. 593 1969 Unknown [id number] 2.16.840.1.715761.3.579.2. 593 1969 Unknown [id number] 2.16.840.1.373477.3.579.2. 593 1969 Unknown [id number] 2.16.840.1.307774.3.579.2. 593 1969 Unknown [id number] 2.16.840.1.257633.3.579.2. 593 1969 Unknown [id number] 2.16.840.1.819808.3.579.2. 356 1969 Unknown [id number] 2.16.840.1.658556.3.579.2. 727 1969 Unknown [id number] 2.16.840.1.776589.3.579.2. 727 1969 Unknown [id number] 2.16.840.1.404757.3.579.2. 727 1969 Unknown [id number] 2.16.840.1.814258.3.579.2. 727 1969 Unknown [id number] 2.16.840.1.008224.3.579.2. 176 1969 Unknown [id number] 2.16.840.1.738446.3.579.2. 176 1969 Unknown [id number] 2.16.840.1.280634.3.579.2. 176 1969 Unknown [id number] 2.16.840.1.568278.3.579.2. 175 1969 Unknown [id number] 2.16.840.1.531887.3.579.2. 1244 1969 Unknown [id number] 2.16.840.1.909732.3.579.2. 1244 1969 Unknown [id number] 2.16.840.1.059570.3.579.2. 1246 1969 Unknown [id number] 2.16.840.1.122536.3.579.2. 1246 1969 Unknown [id number] 2.16.840.1.520968.3.579.2. 1246 1969 Unknown [id number] 2.16.840.1.127364.3.579.2. 1246 1959 Medicaid [id number] Medicare [id number] Medicare [id number] Medicare Medicare [id number] Private Health Insurance [employer] MCR PFFS 1 [id number] Private Health Insurance [facility] e CORNELIO [id number] Unknown [id number] Unknown Unknown [id number] 2.16.840.1.638711.3.579.2. 531 Unknown [id number] 2..840.1.234551.3.579.2. 531 Unknown [id number] 2..840.1.936491.3.579.2. 531 Social History Date Type Detail Facility Start: 08-16-2020 End: 03-30-2024 Tobacco smoking status NDIS Ex-smoker (finding) [facility] Start: 1970 Sex Assigned At Female F [facility] Start: 05-20-2021 End: 10-06-2023 No illicit drug use No illicit drug use [facility] Work Phone: Comment on above: QUIT 02/2018; QUIT 02/2018 had res tarted then requit 08/2021; Start: 05-20-2021 End: 09-29-2023 Tobacco smoking status NHIS Smokes tobacco daily [facility] Start: 10-07-2006 End: 08-30-2021 History of tobacco use Cigarette Smoker [facility] Start: 05-20-2021 End: 10-06-2023 Tobacco use and exposure Smokeless tobacco non-user [facility] Start: 05-20-2021 End: 09-29-2023 Alcohol intake Ex-drinker (finding) [facility] Start: 06-17-2020 History SDOH Financial 5 [facility] Start: 06-17-2020 History SDOH Food Worry 1 [facility] Start: 06-17-2020 History SDOH Transport Med 2 [facility] Start: 02-24-2012 Tobacco Comment 5 cigarettes a day C [facility] Start: 1970 Sex Assigned At Not on file C [facility] Start: 12-28-2021 End: 01-07-2022 Exposure to SARS-CoV-2 (event) Unable to assess [facility] Start: 05-20-2021 End: 10-06-2023 Sex Assigned At [facility] Work Phone: Start: 10-13-2021 End: 11-11-2023 Tobacco smoking status NHIS Smoker (finding) [facility] Start: 10-13-2021 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 Never true [facility] Work Phone: Start: 09-02-2023 End: 10-08-2023 Alcohol intake Current drinker of alcohol (finding) [facility] Work Phone: Start: 08-31-2023 Alcohol Comment rare [facility] Work Phone: Start: 08-23-2023 End: 09-29-2023 Exposure to SARS-CoV-2 (event) Not sure [facility] Has the electric, gas, oil, or water company threatened to shut off services in your home in past 12Mo No BON [email or web address] Start: 02-05-2013 Alcohol Comment special occasi ons couple drinks BON [email or web address] NEGATED: Highlighted row [facility] Medical Equipment Procedure Code Equipment Code Equipment Origin al Text Equipment Identifier Dates Headrick Ptfe 1.2 Cm X 10 Cm - [id number] Start: 07-13-2012 Comment on above: Description: pledgets for suture line re inforcement Valve 27mm Therm afix Pericardi - [id number] Start: 07-13-2012 Comment on above: Description: Mitral valve replacement wi th 27 mm Cornell Lang tissue valve Valve Orquidea 3 Commander Lang 26mm Aortic Transcatheter Ultra Low - [id number] Start: 03-17-2021 Defibrillator, Soccer Referee-D, Claria Mri, Surescan, Df1 - [id number] - [id number] Start: 09-29-2023 Goals Date Patient Goal Desired Activity /State Functional Status Date Assessment Result Facility 03-30-2024 Functional status Patient at Baseline [facility] Work Phone: 11-25-2020 Functional status Patient at Baseline [facility] 11-23-2020 Functional status Patient at Baseline [facility] 08-17-2020 Functional status Patient at Baseline [facility] 08-17-2020 Functional status Disability Sta tus Patient at Baseline [facility] 06-15-2020 Functional status Patient at Baseline [facility] 06-05-2020 Functional status Patient at Baseline [facility] Mental Status Date Assessment Result Facility 03-30-2024 Cognitive function Cognitive Sta tus Patient at Baseline [facility] Work Phone: 11-25-2020 Cognitive function Cognitive Sta tus Patient at Baseline [facility] 11-23-2020 Cognitive function Cognitive Sta tus Patient at Baseline [facility] 08-17-2020 Cognitive function Cognitive Sta tus Patient at Baseline [facility] 06-15-2020 Cognitive function Cognitive Sta tus Patient at Baseline [facility] 06-05-2020 Cognitive function Cognitive Sta tus Patient at Baseline [facility] Clinical Notes 06-15-2020 to 03-30-2024 Note Date & Type Note Facility 03-30-2024 Progress note Note Date/Time March 30, 2024 1:38pm [facility] [address] [place], [place] [id number] Progress Note Signed Patient: Essence Vincent MR#: [id number] : 1970 Acct:[id number] Age/Sex: 53 / F Adm Date: 4 Loc: Room: [address] [place] [address] Type: ADM INOo Attending Dr: Patrica Mcmahon [...] <Electronically signed by Patrica Mcmahon MD> 03/30/24 0993 [facility] Work Phone: 1(373) 874-200308-01-2024 History and physical note Author Kendrick Jorgensen [facility] March 30, 2024 3:54am Note Date/Time March 30, 2024 2:[address] [facility] [address] [place] [id number] Hospitalist H&P Signed Patient: Essence Vincent MR#: [id number] : 1970 Acct:[id number] Age/Sex: 53 / F Adm Date: 4 Loc: 3T Room: 1R6983-1 Type: ADM INOo Attending Dr: Kendrick Jorgensen MD Copies to: MD Amanda Quiroga, OCEANOLOGIST, OPERATIONS CLERK Kristyn Russell, OCEANOLOGIST~ HPI DATE OF EXAMINATION: 03/30/24 CHIEF COMPLAINT: palpitations HISTORY OF PRESENT ILLNESS: Ms. Vincent is a 53-year-old female with a PMH of AMI, VT, SVT, AICD placement, mitral valve replacement, A-fib, hypothyroidism, DVT, atrial thrombus, warfarin therapy, CHF presented to the emergency room health system for complaints of palpitations. Patient states I [...] she has been seeing psychiatry services in [place] for anxiety. Reports she lost her parents [...] behind her left eye, sees neuro at [facility] in [place], Dr. Robles. States they are just watching [...] positive for barbiturates and marijuana-she is on mjstwkytrt-ecoclleaaynvv-[id number] as needed for headaches. She was medicated with lorazepam, potassium, Nitropaste 1 inch. She will be admitted as observation to the [facility] telemetry floor. Review of Systems Review of Systems Review of systems: A 10 point review of systems was obtained, negative unless noted in the HPI or below. [facility] Medical History (Updated 03/30/24 @ 03:17 by Kristyn Russell APRN) Paroxysmal A-fib Deep vein thrombosis (DVT) Presence of combination internal cardiac defibrillator (ICD) and pacemaker Ventricular tachycardia (08/04/18) Hypotension CHF (congestive heart failure) Atrial thrombus Large clot found in heart at [facility]. COPD (chronic obstructive pulmonary disease) Myocardial [...] breath or wheezing 02/17/24 [History Confirmed 03/30/24] vlpawklkbl-nqbzwanlaiydm-voahxdwz 50 mg-300 mg-40 mg capsule (Fioricet) 1 [...] 00:27 Lymph % (Auto) N/A 03/30/24 00:27 [place] % (Auto) N/A 03/30/24 00:27 Eos % (Auto) N/A 03/30/24 00:27 Baso % (Auto) N/A 03/30/24 00:27 Nucleat RBC Rel Count N/A 03/30/24 00:27 Neut # (Auto) N/A 03/30/24 00:27 Lymph # (Auto) N/A 03/30/24 00:27 [place] # (Auto) N/A 03/30/24 00:27 Eos # [...] pH 6.5 (5.0-9.0) 03/30/24 02:00 Ur Specific [place] 1.016 (1.001-1.030) 03/30/24 02:00 Urine Protein Negative [...] a.m. ? Follows with Dr. Mazariegos in [place] ? Patient reports she takes torsemide daily [...] signed by Kendrick Jorgensen MD> 03/30/24 0354 [facility] Work Phone: 1(961) 780-542805-09-2024 NoteDate of Service: 01/04/2024 Procedure: Diagnostic cerebral [...] ([place]) cerebral angiogram --Right common femoral artery (PURCHASING AND CLAIMS SUPERVISOR) angiogram Neurointerventionalist: Pedro Fan MD [place]: Grary New MD Contrast: 98 cc of Visipaque-270. [...] with a micropuncture technique, and a 5 Senegalese intravascular sheath wasplaced within the right common femoral artery, establishing arterial access using modified Seldinger technique. The ultrasound guidance image was not captured and archived in the patient's record. 2000u of heparin IV was administered. A 5 Senegalese multipurpose catheter was then advanced over a [...] The left internal marquez (more content not included)...[facility]02-13-2024 History of Present illness Narrative* Heydi Jiang, [facility] - 10/12/2023 3:50 PM EST Patient [...] Spent (min): 20 Heydi Jiang, PharmD PGY1 Cnc Machine Programmer [facility] documented in this encounterB[facility] History of Present illness Narrative* Marcelo Champagne [...] Time Spent (min): 20 [facility] History of Present illness Narrative* Savannah Chang - 10/07/2023 11:37 AM EST Pt does not want Butalbital/APAP/Caffeine 50/325/40 tabs on file at [facility].Pt in need of Requip miscommunication between pt/nurse/prescriber pt will specify which home pharmacy to have Requip sent to is ready for discharge 10/07/23 11:36am kbg Butalbital/APAP/Caffeine 50/325/40 tabs $18.37 10/07/23 11:15am out for delivery kbg pt has copay unable to enter room due to restrictions unable to reach pt via room phone or cell to discuss payment * Marcelo Raman [facility] - 10/07/2023 8:44 AM EST Pharmacy [...] - 10/06/2023 2:29 PM EST Pharmacy from [place] coumadin [facility] came to floor to give patient a card for an appt on 10/08/23 at 10:30am. Card was given to patient. * Yvette Alatorre RN - 10/06/2023 2:28 PM EST Spoke with Savannah from OP pharmacy they are working on getting Lovenox for discharge as they are lowin stock. She will get back to feature writer. * Yvette Alatorre RN - 10/06/2023 1:18 PM EST Eyeglass Lens Grinder asked patient why she has been off [...] Patient gave herself her Lovenox today with feature writer in room to help educate. Patient did well and is comfortable with self injecting. * Nadir Madrigal [facility] - 10/06/2023 9:53 AM EST Pharmacy Note [...] 1.1 none 7.5 mg Notes: Per [facility] Medication Management office patient STRAND B[employer]CHER [employer]IRE dosing was 7.5 mg ONE day per week. All other days are 5 mg. Patient noncompliant with office and has not been seen for 1 year. Office Number [phone] Per Gauri Rey Daily PT/INR while inpatient. Nadir Madrigal, PharmD. [facility] 10/06/2023 9:53 AM * Eddie Farias [facility] - 10/06/2023 4:24 AM EST Pharmacy [...] to follow. * Azalea Cai, PETE - OPERATIONS CLERK - 10/05/2023 11:20 PM EST Essence Vincent [...] 10/05/2023 11:20 PM documented in this encounterBON [facility]01-31-2024 Note.ICD System pulse generator replacement Procedures: DONOR SUPPORT TECHNICIAN-D generator replacement (37197) Pocket revision with Tyrx pouch, 68907 - 59 (distinct procedure), Defibrillator generator threshold testing 25085, Pre and post ICD analysis and reprogramming 04136 x 2 Patient history: Please refer to [...] of infection. The patient should call the financial institution branch manager immediately if symptoms recur, or for any problems. The patient and family (friend with HIPAA consent) have been instructed accordingly. Follow up in Clinic in 1 week for wound check. See complete procedural log and parameters. [id number] Hospital Discharge instructions* Discharge Instructions* Yessi Don, OCEANOLOGIST-OPERATIONS CLERK - 09/29/2023 9:39 AM EST Images from [...] have been instructed by the device company desk representative regarding remote home monitoring. There are [...] your after visit summary documented in this encounterUnSam[facility] Work Phone: 1([phone]) 380-858001-31-2024 Note* Pre-Sedation Documentation - Margareth Nunez MD - 09/29/2023 7:54 AM EST Sedation Plan ASA 2 Mallampati class: II. Risks, benefits, and alternatives discussed with patient. [facility] Work Phone: 1(176) 670-289601-31-2024 Miscellaneous Notes* Pre-Sedation Documentation - Margareth Nunez MD - 09/29/2023 7:54 AM EST Sedation Plan ASA 2 Mallampati class: II. Risks, benefits, and alternatives discussed with patient. documented in this encounterUniversity [facility]als [facility] Work Phone: 1([phone]) 488-970001-31-2024 Attending History and physical note* Margareth Nunez MD - 09/29/2023 7:52 AM EST H&P reviewed. The patient was examined and there are no changes to the H&P. She is here for generator change. She has chronic lower extremity edema and exertional dyspnea. Shared decision making performed. [place] decision tool. All questions answered. Econsent obtained. [...] ventricular tachycardia status post ablations through the [facility] with the most recent procedure being approximately [...] recently the device was upgraded to a DONOR SUPPORT TECHNICIAN-D device on September 23, 2016 for the [...] 80 mg tablet 1 tablet, oral, Nightly gzsnbhmcoq-anxwzvxazjvqa-wpyh (Fioricet) 50-300-40 mg capsule 1 capsule, oral, [...] 80 bpm. Prolonged AV conduction with a [place] interval of 300 ms. QRS durations 136 [...] post 3 VT ablation procedures at the [facility] and maintained on a combination of amiodarone, metoprolol, and magnesium oxide for ventricular arrhythmia suppression. (Medtronic Viva XT DONOR SUPPORT TECHNICIAN-D). 4. Dyslipidemia on statin. 5. Paroxysmal atrial [...] states that she does follow with a wirer street light for her COPD but has not had [...] software was utilized to prepare this document. [facility] Work Phone: 1([phone]) 617-355101-31-2024 History and physical note* Margareth Nunez MD - 09/29/2023 7:52 AM EST H&P reviewed. The patient was examined and there are no changes to the H&P. She is here for generator change. She has chronic lower extremity edema and exertional dyspnea. Shared decision making performed. [place] decision tool. All questions answered. Econsent obtained. [...] ventricular tachycardia status post ablations through the [facility] with the most recent procedure being approximately [...] recently the device was upgraded to a DONOR SUPPORT TECHNICIAN-D device on September 23, 2016 for the [...] 80 mg tablet 1 tablet, oral, Nightly eoipipgldo-cdqqcilyqxrdc-fjqe (Fioricet) 50-300-40 mg capsule 1 capsule, oral, [...] 80 bpm. Prolonged AV conduction with a [place] interval of 300 ms. QRS durations 136 [...] post 3 VT ablation procedures at the [facility] and maintained on a combination of amiodarone, metoprolol, and magnesium oxide for ventricular arrhythmia suppression. (Medtronic Viva XT DONOR SUPPORT TECHNICIAN-D). 4. Dyslipidemia on statin. 5. Paroxysmal atrial [...] implant on all MRI compatible devices. Notify [facility] for signs of infection including fever, chills, [...] states that she does follow with a wirer street light for her COPD but has not had [...] to prepare this document. documented in this encounterUniversity Hospitals [facility] Work Phone: 1([phone]) 422-164801-29-2024 Evaluation note* Encounter Date Diagnosis Assessment Notes Treatment Notes Treatment Clinical Notes Aug, Generalized anxiety disorder (ICD-10 - F41.1) [facility] Other 01-24-2024 Evaluation note* Encounter Date Diagnosis Assessment Notes Treatment Notes Treatment Clinical Notes Aug, Migraine without status migrainosus, not intractable, unspecified migraine type (ICD-10 - G43.909) last filled 07/27/2023 [facility] Other 01-24-2024 Evaluation note* Encounter Date Diagnosis Assessment Notes Treatment Notes Treatment Clinical Notes Aug, Migraine without status migrainosus, not intractable, unspecified migraine type (ICD-10 - G43.909) [facility] Other 01-02-2024 Evaluation note* Encounter Date Diagnosis Assessment Notes Treatment Notes Treatment Clinical Notes Aug, Generalized anxiety disorder (ICD-10 - F41.1) [facility] Other 11-29-2023 Miscellaneous Notes* Telephone Encounter - [...] Epic note, left voicemail. documented in [facility] encounterDel[facility]05-31-2023 NotePROCEDURE: XR HUMERUS RT MIN 2 [...] Electronically authenticated by: JC BRAVO Date: 2023-01-27 11:03[facility]05-31-2023 NotePROCEDURE: XR HUMERUS RT MIN 2 [...] Electronically authenticated by: JC BRAVO Date: 2023-01-27 11:03[facility]05-25-2022 NotePre-procedure Verification and Time Out: Pre-Procedure [...] Findings: grossly normal anatomy Procedure performed by: al Kennel Hand(s): none Estimated Blood Loss (mL): none Specimen: [...] of infection. The patient should call the financial institution branch manager immediately if symptoms recur, or for any [...] right interatrial septum sites were mapped with tpkql-fo-pyzmz electroanatomical activation mapping and entrainment mapping from both the right atrial catheter and the ablation catheter. An Maktoob mapping system was used to create a 3D image of the right atrium and cavotricuspid isthmus. Mapping was performed during sinus rhythm and atrial pacing. 4. Catheter RF ablation. Applications were delivered via a generator to (more content not included)...[facility]05-25-2022 NoteHistory of Present Illness: /Lactating: [...] - Surgical Update < 30 days 21-Jan-2022 12:47[facility]05-25-2022 NoteElectrophysiology Procedure TestingPlease click on the link to view the study images (Normal)[facility] [address] [place] Work Phone: 1([phone]) 352-556305-25-2022 NoteElectrophysiology Procedure Testing Please click on the link to view the study images (Normal)[facility] [address] DO Work Phone: 1([phone]) 802-298105-25-2022 NoteHistory & Physical Reviewed: /Lactating: Are You [...] From Patient Profile - Preop v3 21-Jan-2022 10:28[facility]05-25-2022 NoteHistory of Present Illness: Admission [...] JOVITA/EPS/possible ablation. She is here today at [facility] for these procedures. Patient denies [...] Flutter Plan for Impressi (more content not included)...[facility] 12-23-2021 Evaluation note* Encounter Date [...] NIGEL Pugh. Seen by Memo Fuchs PharmD [employer] Other 04-20-2022 Evaluation note* Encounter Date Diagnosis Assessment Notes Treatment Notes Treatment Clinical Notes Nov, Medication monitoring encounter (ICD-10 - Z51.81) Referring Provider: Robe Alonso (new re will be Dr. Rojas [phone]) Diagnosis: Thrombus, Atrial Fibrillation INR Goal: 2-3 [...] referral is faxed to Dr. HARRIET Hoskins [facility]. Called [facility] [phone], spoke with Amanda SUMNER RN. A [facility] Physician is scheduled to see on 12/22 and take her as a patient. [facility] fax number is [phone]. [facility] Order: draw PT/INR on Completed by: Susan Euceda RN [employer] Other 04-13-2022 Evaluation note* Encounter Date Diagnosis Assessment Notes Treatment Notes Treatment Clinical Notes Nov, Medication monitoring encounter (ICD-10 - Z51.81) Referring Provider: Robe Alonso (new re will be Dr. Rojas [phone]) Diagnosis: Thrombus, Atrial Fibrillation INR Goal: 2-3 INR: 1.2 ( 12/09 ) Tablet Size: 5mg Wednesday: 5mg Wednesday: 7.5mg Wednesday: 5mg Wednesday: 7.5mg : 5mg Wednesday: 7.5mg Wednesday: 5mg Total Weekly Dose: 42.5mg [facility] was called, LVM at 8:38 asking [...] Recommendation is faxed to PCP. Called Vera [phone] to return call. [facility] fax number is [phone]. [facility] [employer] [facility] Order: draw PT/INR on Completed by: Susan Euceda RN [employer] Other 03-23-2022 Evaluation note* Encounter Date Diagnosis [...] correctly. Called [facility] [phone], rodríguez with instructions. [facility] fax number is [phone]. This Order is faxed. [facility] [employer] [facility] Order: draw PT/INR on Thursday, November 25, 2021 Completed by: Susan Euceda RN [employer] Other 03-15-2022 Evaluation note* Encounter Date Diagnosis [...] daily. Called [facility] [phone], lvm for nurse with Vera Patel. LVM on Amanda's phone. Amanda returned call, discussed the above instructions. [facility] fax number is [phone]. This Order is faxed. [facility] Home Health Order: draw PT/INR on Thursday, November 18, 2021 Completed by: uSsan Euceda RN [employer] Other 03-09-2022 Evaluation note* Encounter Date Diagnosis Assessment Notes Treatment Notes Treatment Clinical Notes Oct, Medication monitoring encounter (ICD-10 - Z51.81) Referring Provider: Robe Alonso Diagnosis: Thrombus, Atrial Fibrillation INR Goal: 2-3 INR: 1.11 ([facility] 11/05/21) Tablet Size: 5mg Wednesday: 5mg [...] talking to family members for rides. Called [employer] [facility] for a return call. Addendum: Nurse Adriana SUMNER from [facility] returned call and stated understanding to instructions. Phone for [phone] ext [phone], nurse with Vera. [facility] fax number is [phone] per pt. Home Health Order: draw INR on Thursday, November 11, 2021 Completed by: Susan Euceda RN [employer] Other 03-02-2022 Evaluation note* Encounter Date Diagnosis [...] is made aware of bleeding. [phone]), nurse with Vera. [employer] fax number is [phone] per pt. Home Health Order: draw INR on Completed by: Jeane Dykes, [facility] [employer] Other 02-24-2022 Evaluation note* Encounter Date Diagnosis Assessment Notes Treatment Notes Treatment Clinical Notes Sep, Medication monitoring encounter (ICD-10 - Z51.81) Referring Provider: Robe Alonso Diagnosis: Thrombus, Atrial Fibrillation INR Goal: 2-3 INR: 1.29 ([facility]) Tablet Size: 5mg Wednesday: 5mg Wednesday: 5mg Wednesday: 5mg Wednesday: 5mg : 5mg Wednesday: 5mg Wednesday: 5mg Total Weekly Dose: 35mg Boost additional 2.5mg for 3 days, then resume above plan. Follow up with a draw on Wednesday. Patient was not bridged with Lovenox at discharge from [facility]. Patient has been back on warfarin for 1 week. BURAK Wright's phone number ([phone]), nurse with Vera. [employer] fax number is [phone] per pt. Home Health Order: draw INR on Wednesday10/28/2021 Completed by: Jeane Dykes, [facility] [employer] Other 01-01-2022 History of Present illness Narrative* [...] details. * She has remote history of FL , cardiogenic shock, PCI circumflex and iABP, with persistent severe LV dysfunction. She later occluded her cicumflex. Years later, she had HF and severe MR and underwentmitral valve repair at [facility]. She had recurrent VT and atrial arrhythmias, and underwent several ablations and repeat percutaneous MVR at [facility]. After her MVR and ablation in July,, she had KALLI when then improved. She has had recurrent ICD shocks for atrial flutter. * Personal review of ECG and cardiac data reviewed * Outside records: * EP study and successful ablation of atrial flutter. Multiple atrial tachycardias, possible left atrial tachycardia also noted and not targeted for ablation. December 2021. * Discharge summary [facility] Oct 2021 * Cardiology consult Oct 2021 [...] Patient reports that she follows up with [facility]. [place] cardiology for further adjustment of medication. Patient will notify us with whom she follows. Co nsider referral to advanced heart failure section. * Sustained VT s/p ablations at [facility]. No documentation of ablations available in chart. * CAD, chronic. See above. Reviewed meds. Continue meds. Discussed refills. * Biventricular ICD for refractory heart failure. Medtronic [id number]. Reviewed device check. No recentdevice check noted. Order sent to [facility] device [facility] for device checks. * Hypertension, chronic. Stable. Reviewed meds. Continue meds. Discussed refills. * Migraine headache * AHA recommendations for exercise, diet, and behavioral modification reviewed with pt. * The patient and I discussed the mechanism of arrhythmia, ablation to prevent atrial flutter, no recurrent inappropriate shocks, need for compliance for device checks, order sent to [facility] for device checks, follow-up with heart failure clinic at [facility], indications for and typesof medications, discussion if and what medication refills needed, treatment options, risks, benefits, and imponderables. [place] [employer] lifestyle changes and behavioral modification discussed. All questions answered in detail. Counseling over 50% visit regarding above. Patient appreciative of care. * Grammar * Please excuse grammatical or dictation errors as software dictation application being used. [facility] [employer] [address] DO Work Phone: 1([phone]) 244-455011-18-2021 Evaluation note* Encounter Date Diagnosis Assessment Notes [...] 2 weeks. Seen by Memo Fuchs PharmD [employer] Other 11-01-2021 Evaluation note* Encounter Date Diagnosis [...] 2 weeks. Seen by Susan Euceda RN [employer] Other 10-11-2021 Evaluation note* Encounter Date Diagnosis [...] 2 weeks. Seen by Jose Molina PharmD [employer] Other 10-17-2020 History of Past illness Narrative* [...] 260ms and 260ms) terminating VT. Transfer to [facility] on 06/20 Plan: Continue amiodarone 400 mg [...] 07/13/2012 1 09/15/2011 Overview: IV Fentanyl PRN, SHAKER REPAIRER, Lidoderm patches, Po pain meds Pulmonary insuff [...] papillary muscles and chordal apparatus Dual chamber DONOR SUPPORT TECHNICIAN-D 07/23/2020 Overview: On 07.14.12 -fired x6 for SVT/AF HRs 140-150 (pacer set at 130- any HR over that it recognizes as VT). EP consulted- will follow their recommendations (will continue po amio taper to control rate). Needs pacer check- Wednesday07.18.2012- will d/w EP about pacer check. H/o GERD 07/23/2020 Overview: 07.18.2012: Asymptomatic. On Protonix. documented as of this encounter (statuses as of 01/14/2022) [facility]10-[facility] History of Past illness Narrative* Problem [...] 260ms and 260ms) terminating VT. Transfer to [facility] on 06/20 Plan: Continue amiodarone 400 mg [...] 07/13/2012 1 09/15/2011 Overview: IV Fentanyl PRN, SHAKER REPAIRER, Lidoderm patches, Po pain meds Pulmonary insuff [...] papillary muscles and chordal apparatus Dual chamber DONOR SUPPORT TECHNICIAN-D 07/23/2020 Overview: On 07.14.12 -fired x6 for SVT/AF HRs 140-150 (pacer set at 130- any HR over that it recognizes as VT). EP consulted- will follow their recommendations (will continue po amio taper to control rate). Needs pacer check- Wednesday07.18.2012- will d/w EP about pacer check. H/o GERD 07/23/2020 Overview: 07.18.2012: Asymptomatic. On Protonix. documented as of this encounter (statuses as of 04/12/2022) [facility] History of Past illness Narrative* Problem [...] 260ms and 260ms) terminating VT. Transfer to [facility] on 06/20 Plan: Continue amiodarone 400 mg [...] 07/13/2012 1 09/15/2011 Overview: IV Fentanyl PRN, SHAKER REPAIRER, Lidoderm patches, Po pain meds Pulmonary insuff [...] papillary muscles and chordal apparatus Dual chamber DONOR SUPPORT TECHNICIAN-D 07/23/2020 Overview: On 07.14.12 -fired x6 for SVT/AF HRs 140-150 (pacer set at 130- any HR over that it recognizes as VT). EP consulted- will follow their recommendations (will continue po amio taper to control rate). Needs pacer check- Wednesday07.18.2012- will d/w EP about pacer check. H/o GERD 07/23/2020 Overview: 07.18.2012: Asymptomatic. On Protonix. documented as of this encounter (statuses as of 06/01/2022) [facility] History of Past illness Narrative* Problem [...] 260ms and 260ms) terminating VT. Transfer to [facility] on 06/20 Plan: Continue amiodarone 400 mg [...] 07/13/2012 1 09/15/2011 Overview: IV Fentanyl PRN, SHAKER REPAIRER, Lidoderm patches, Po pain meds Pulmonary insuff [...] papillary muscles and chordal apparatus Dual chamber DONOR SUPPORT TECHNICIAN-D 07/23/2020 Overview: On 07.14.12 -fired x6 for SVT/AF HRs 140-150 (pacer set at 130- any HR over that it recognizes as VT). EP consulted- will follow their recommendations (will continue po amio taper to control rate). Needs pacer check- Wednesday07.18.2012- will d/w EP about pacer check. H/o GERD 07/23/2020 Overview: 07.18.2012: Asymptomatic. On Protonix. documented as of this encounter (statuses as of 07/01/2022) [facility] History of Past illness Narrative* Problem [...] 260ms and 260ms) terminating VT. Transfer to [facility] on 06/20 Plan: Continue amiodarone 400 mg [...] 07/13/2012 1 09/15/2011 Overview: IV Fentanyl PRN, SHAKER REPAIRER, Lidoderm patches, Po pain meds Pulmonary insuff [...] papillary muscles and chordal apparatus Dual chamber DONOR SUPPORT TECHNICIAN-D 07/23/2020 Overview: On 07.14.12 -fired x6 for SVT/AF HRs 140-150 (pacer set at 130- any HR over that it recognizes as VT). EP consulted- will follow their recommendations (will continue po amio taper to control rate). Needs pacer check- Wednesday07.18.2012- will d/w EP about pacer check. H/o GERD 07/23/2020 Overview: 07.18.2012: Asymptomatic. On Protonix. documented as of this encounter (statuses as of 07/27/2022) [facility] History of Past illness Narrative* Problem [...] 260ms and 260ms) terminating VT. Transfer to [facility] on 06/20 Plan: Continue amiodarone 400 mg [...] 07/13/2012 1 09/15/2011 Overview: IV Fentanyl PRN, SHAKER REPAIRER, Lidoderm patches, Po pain meds Pulmonary insuff [...] papillary muscles and chordal apparatus Dual chamber DONOR SUPPORT TECHNICIAN-D 07/23/2020 Overview: On 07.14.12 -fired x6 for SVT/AF HRs 140-150 (pacer set at 130- any HR over that it recognizes as VT). EP consulted- will follow their recommendations (will continue po amio taper to control rate). Needs pacer check- Wednesday07.18.2012- will d/w EP about pacer check. H/o GERD 07/23/2020 Overview: 07.18.2012: Asymptomatic. On Protonix. documented as of this encounter (statuses as of 08/30/2022) [facility] History of Past illness Narrative* Problem [...] 260ms and 260ms) terminating VT. Transfer to [facility] on 06/20 Plan: Continue amiodarone 400 mg [...] 07/13/2012 1 09/15/2011 Overview: IV Fentanyl PRN, SHAKER REPAIRER, Lidoderm patches, Po pain meds Pulmonary insuff [...] papillary muscles and chordal apparatus Dual chamber DONOR SUPPORT TECHNICIAN-D 07/23/2020 Overview: On 07.14.12 -fired x6 for SVT/AF HRs 140-150 (pacer set at 130- any HR over that it recognizes as VT). EP consulted- will follow their recommendations (will continue po amio taper to control rate). Needs pacer check- Wednesday07.18.2012- will d/w EP about pacer check. H/o GERD 07/23/2020 Overview: 07.18.2012: Asymptomatic. On Protonix. documented as of this encounter (statuses as of 09/11/2022) [facility] History of Past illness Narrative* Problem [...] 260ms and 260ms) terminating VT. Transfer to [facility] on 06/20 Plan: Continue amiodarone 400 mg [...] 07/13/2012 1 09/15/2011 Overview: IV Fentanyl PRN, SHAKER REPAIRER, Lidoderm patches, Po pain meds Pulmonary insuff [...] papillary muscles and chordal apparatus Dual chamber DONOR SUPPORT TECHNICIAN-D 07/23/2020 Overview: On 07.14.12 -fired x6 for SVT/AF HRs 140-150 (pacer set at 130- any HR over that it recognizes as VT). EP consulted- will follow their recommendations (will continue po amio taper to control rate). Needs pacer check- Wednesday07.18.2012- will d/w EP about pacer check. H/o GERD 07/23/2020 Overview: 07.18.2012: Asymptomatic. On Protonix. documented as of this encounter (statuses as of 11/28/2022) [facility] History of Past illness Narrative* Problem [...] 260ms and 260ms) terminating VT. Transfer to [facility] on 06/20 Plan: Continue amiodarone 400 mg [...] 07/13/2012 1 09/15/2011 Overview: IV Fentanyl PRN, SHAKER REPAIRER, Lidoderm patches, Po pain meds Pulmonary insuff [...] below admission. On BB (Coreg), diuretic, low-dose ADLEE (with parameters). Will monitor I&O's, wts. MR (mitral regurgitation) 2011 Overview: Severe 4+ 07/13/2012: MVR (CE #27mm), preservation of papillary muscles and chordal apparatus Dual chamber DONOR SUPPORT TECHNICIAN-D 07/23/2020 Overview: On 07.14.12 -fired x6 for SVT/AF HRs 140-150 (pacer set at 130- any HR over that it recognizes as VT). EP consulted- will follow their recommendations (will continue po amio taper to control rate). Needs pacer check- Wednesday07.18.2012- will d/w EP about pacer check. H/o GERD 07/23/2020 Overview: 07.18.2012: Asymptomatic. On Protonix. documented as of this encounter (statuses as of 03/05/2023) [facility] History of Past illness Narrative* Problem [...] 260ms and 260ms) terminating VT. Transfer to [facility] on 06/20 Plan: Continue amiodarone 400 mg [...] pain 07/13/2012 07/16/2012 Overview: IV Fentanyl PRN, SHAKER REPAIRER, Lidoderm patches, Po pain meds Pulmonary insuff [...] papillary muscles and chordal apparatus Dual chamber DONOR SUPPORT TECHNICIAN-D 0 Overview: On 11.15.12 -fired x6 for SVT/AF HRs 140-150 (pacer set at 130- any HR over that it recognizes as VT). EP consulted- will follow their recommendations (will continue po amio taper to control rate). Needs pacer check- Wednesday07.18.2012- will d/w EP about pacer check. H/o GERD 07/23/2020 Overview: 07.18.2012: Asymptomatic. On Protonix. documented as of this encounter (statuses as of 03/29/2023) [facility] History of Past illness Narrative* Problem [...] 260ms and 260ms) terminating VT. Transfer to [facility] on 06/20 Plan: Continue amiodarone 400 mg [...] pain 07/13/2012 07/16/2012 Overview: IV Fentanyl PRN, SHAKER REPAIRER, Lidoderm patches, Po pain meds Pulmonary insuff [...] papillary muscles and chordal apparatus Dual chamber DONOR SUPPORT TECHNICIAN-D 0 Overview: On 07.14.12 -fired x6 for SVT/AF HRs 140-150 (pacer set at 130- any HR over that it recognizes as VT). EP consulted- will follow their recommendations (will continue po amio taper to control rate). Needs pacer check- Wednesday07.18.2012- will d/w EP about pacer check. H/o GERD 07/23/2020 Overview: 07.18.2012: Asymptomatic. On Protonix. documented as of this encounter (statuses as of 04/10/2023) [facility] History of Past illness Narrative* Problem [...] 260ms and 260ms) terminating VT. Transfer to [facility] on 06/20 Plan: Continue amiodarone 400 mg [...] pain 07/13/2012 07/16/2012 Overview: IV Fentanyl PRN, SHAKER REPAIRER, Lidoderm patches, Po pain meds Pulmonary insuff [...] papillary muscles and chordal apparatus Dual chamber DONOR SUPPORT TECHNICIAN-D 0 Overview: On 07.14.12 -fired x6 for SVT/AF HRs 140-150 (pacer set at 130- any HR over that it recognizes as VT). EP consulted- will follow their recommendations (will continue po amio taper to control rate). Needs pacer check- Wednesday07.18.2012- will d/w EP about pacer check. H/o GERD 07/23/2020 Overview: 07.18.2012: Asymptomatic. On Protonix. documented as of this encounter (statuses as of 04/22/2023) [facility] History of Past illness Narrative* Problem [...] 260ms and 260ms) terminating VT. Transfer to [facility] on 06/20 Plan: Continue amiodarone 400 mg [...] pain 07/13/2012 07/16/2012 Overview: IV Fentanyl PRN, SHAKER REPAIRER, Lidoderm patches, Po pain meds Pulmonary insuff [...] papillary muscles and chordal apparatus Dual chamber DONOR SUPPORT TECHNICIAN-D 0 Overview: On 07.14.12 -fired x6 for SVT/AF HRs 140-150 (pacer set at 130- any HR over that it recognizes as VT). EP consulted- will follow their recommendations (will continue po amio taper to control rate). Needs pacer check- Wednesday07.18.2012- will d/w EP about pacer check. H/o GERD 07/23/2020 Overview: 07.18.2012: Asymptomatic. On Protonix. documented as of this encounter (statuses as of 05/07/2023) [facility] History of Past illness Narrative* Problem [...] 1+ MR, 4+TR. TTE 06/11: EF 27%. 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 There is [...] 260ms and 260ms) terminating VT. Transfer to [facility] on 06/20 Plan: Continue amiodarone 400 mg [...] pain 07/13/2012 07/16/2012 Overview: IV Fentanyl PRN, SHAKER REPAIRER, Lidoderm patches, Po pain meds Pulmonary insuff [...] papillary muscles and chordal apparatus Dual chamber DONOR SUPPORT TECHNICIAN-D 0 Overview: On 07.14.12 -fired x6 for SVT/AF HRs 140-150 (pacer set at 130- any HR over that it recognizes as VT). EP consulted- will follow their recommendations (will continue po amio taper to control rate). Needs pacer check- Wednesday07.18.2012- will d/w EP about pacer check. H/o GERD 07/23/2020 Overview: 07.18.2012: Asymptomatic. On Protonix. documented as of this encounter (statuses as of 07/28/2023) [facility] History of Past illness Narrative* Problem [...] 260ms and 260ms) terminating VT. Transfer to [facility] on 06/20 Plan: Continue amiodarone 400 mg [...] pain 07/13/2012 07/16/2012 Overview: IV Fentanyl PRN, SHAKER REPAIRER, Lidoderm patches, Po pain meds Pulmonary insuff [...] papillary muscles and chordal apparatus Dual chamber DONOR SUPPORT TECHNICIAN-D 0 Overview: On 07.14.12 -fired x6 for SVT/AF HRs 140-150 (pacer set at 130- any HR over that it recognizes as VT). EP consulted- will follow their recommendations (will continue po amio taper to control rate). Needs pacer check- Wednesday07.18.2012- will d/w EP about pacer check. H/o GERD 07/23/2020 Overview: 07.18.2012: Asymptomatic. On Protonix. documented as of this encounter (statuses as of 07/28/2023) [facility] History of Past illness Narrative* Problem [...] 260ms and 260ms) terminating VT. Transfer to [facility] on 06/20 Plan: Continue amiodarone 400 mg [...] pain 07/13/2012 07/16/2012 Overview: IV Fentanyl PRN, SHAKER REPAIRER, Lidoderm patches, Po pain meds Pulmonary insuff [...] papillary muscles and chordal apparatus Dual chamber DONOR SUPPORT TECHNICIAN-D 0 Overview: On 07.14.12 -fired x6 for SVT/AF HRs 140-150 (pacer set at 130- any HR over that it recognizes as VT). EP consulted- will follow their recommendations (will continue po amio taper to control rate). Needs pacer check- Wednesday07.18.2012- will d/w EP about pacer check. H/o GERD 07/23/2020 Overview: 07.18.2012: Asymptomatic. On Protonix. documented as of this encounter (statuses as of 08/10/2023) [facility] Megan Hoskins [facility] March 30, 2024 4:36pm Note Date/Time March 30, 2024 4:[address] [facility] [address] [place] [address] Cardiology Consult Note Signed Patient: Essence Vincent MR#: [id number] : 1970 Acct:[id number] Age/Sex: 53 / F Adm Date: 4 Loc: 3T Room: [address] [place] [address] Type: ADM INOo Attending Dr: Patrica Mcmahon MD Copies to: Amanda Grace, OCEANOLOGIST, OPERATIONS CLERK MD Megan Mcarthur, DO~ Cardiology HPI History of Present Illness Consult Date: 03/30/24 Reason for Consult: Ischemic cardiomyopathy, remote FL, remote MVR HPI: Ms. Vincent is a [...] have valve in valve [facility]. She also has AICD biventricular pacemaker followed by Dr. Munson at [facility]. She has not seen me since 2021. Apparently she had her generator change with Dr. Margareth Nunez in 2023. She no longer follows withcardiology locally. I believe she is getting most of her cardiology care at [facility] electrophysiology care between [facility] and ?EM In any event, she has left [facility] Medical History (Updated 03/30/24 @ 16:35 by Megan Hoskins DO) Restless leg syndrome Anxiety Paroxysmal A-fib Deep vein thrombosis (DVT) Presence of combination internal cardiac defibrillator (ICD) and pacemaker Ventricular tachycardia (08/04/18) Hypotension CHF (congestive heart failure) Atrial thrombus Large clot found in heart at [facility]. COPD (chronic obstructive pulmonary disease) Myocardial [...] breath or wheezing 02/17/24 [History Confirmed 03/30/24] nwlmdtvorm-ccezoznwfwmiv-pzucxxzw 50 mg-300 mg-40 mg capsule (Fioricet) 1 [...] 8.3 H Lymph # (Auto) N/A 1.6 [place] # (Auto) N/A 1.0 H Eos # [...] Code(s): I25.10 - Atherosclerotic heart disease of nez perce coronary artery without angina pectoris (2) Ischemic [...] signed by Megan Hoskins DO> 03/30/24 1636 [facility] Work Phone: Evaluation note* Diagnosis Onset Date Resolution Status Afib acute Anemia acute CAD (coronary artery disease) acute Iron deficiency anemia acute Ischemic cardiomyopathy with implantable cardioverter-defibrillator (ICD) acute Palpitations acute Supratherapeutic INR acute Ventricular tachycardia acut e [facility] noteNo InformationNoM2M Solution Other evaluation noteNoM2M Solution Other Evaluation note* Diagnosis Onset Date Resolution Status KALLI (acute kidney injury) ac [place] Digoxin toxicity acute Elevated troponin I level [place] Hypotension acute Thrombocytopenia acute [facility] note[facility] assessment information available [facility] Work Phone: Evaluation note* Diagnosis Persistent atrial fibrillation (HCC)- Primary Atrial fibrillation [facility] Diagnosis ICD (implantable cardioverter-defibrillator) battery depletion documented in this encounter [facility] Work Phone: Evaluation note* Diagnosis ICD (implantable cardioverter-defibrillator) battery depletion Elective replacement of implantable cardioverter-defibrillator (ICD) battery required- Primary Biventricular implantable cardioverter-defibrillator (ICD) in situ Biventricular implantable cardioverter-defibrillator (ICD) in situ Elective replacement of implantable cardioverter-defibrillator (ICD) battery required documented in this encounter [facility] Work Phone: Evaluation note* Diagnosis Elective replacement of implantable cardioverter-defibrillator (ICD) battery required- Primary Biventricular implantable cardioverter-defibrillator (ICD) in situ Elective replacement of implantable cardioverter-defibrillator (ICD) battery required Atrial tachycardia Other specified cardiac dysrhythmias Paroxysmal atrial fibrillation (CMS/HCC) Atrial fibrillation CAD (coronary artery disease) Coronary atherosclerosis of unspecified type of vessel, nez perce or graft VT (ventricular tachycardia) (CMS/HCC) Paroxysmal ventricular tachycardia Biventricular implantable cardioverter-defibrillator (ICD) in situ Biventricular implantable cardioverter-defibrillator (ICD) in situ Elective replacement of implantable cardioverter-defibrillator (ICD) battery required documented in this encounter [facility] Work Phone: Evaluation note* Diagnosis Hypokalemia- Primary Hypopotassemia Hypokalemia Hypopotassemia Dizziness Dizziness and giddiness Longstanding persistent atrial fibrillation (HCC) [facility] Diagnosis Longstanding persistent atrial fibrillation (HCC)- Primary [facility]* Diagnosis Onset Date Resolution Status Cellulitis of face noneactiv e [facility] Work Phone: Evaluation note* Diagnosis Onset Date Resolution Status Generalized anxiety disorder acute Hypokalemia acute Right shoulder pain acute Right upper limb pain acute [facility] Work Phone: Evaluation note* Diagnosis Onset Date Resolution Status Atrial fibrillation acute Coronary artery disease acut e Generalized anxiety disorder acute GERD (gastroesophageal reflux disease) acute History of aneurysm acute History of FL (myocardial infarction) acute History of mitral valve replacement acute Hypokalemia acute Migraines acute Restless leg syndrome acute Right shoulder pain acute Right upper limb pain acute Depression acute Generalized anxiety disorder acute [facility] Work Phone: Evaluation note* Diagnosis Onset Date Resolution Status Atrial fibrillation acute Coronary artery disease acut e Generalized anxiety disorder acute GERD (gastroesophageal reflux disease) acute History of aneurysm acute History of FL (myocardial infarction) acute History of mitral valve replacement acute Hypokalemia acute Migraines acute Restless leg syndrome acute Right shoulder pain acute Right upper limb pain acute Contusion, upper arm acute Depression acute Generalized anxiety disorder acute Injury of right upper arm ac [place] Chest pain acute Heart palpitations acute [facility] Work Phone: Evaluation note* Diagnosis Onset Date Resolution Status Atrial fibrillation acute Coronary artery disease acut e Generalized anxiety disorder acute GERD (gastroesophageal reflux disease) acute History of aneurysm acute History of FL (myocardial infarction) acute History of mitral valve replacement acute Hypokalemia acute Migraines acute Restless leg syndrome acute Right shoulder pain acute Right upper limb pain acute Contusion, upper arm acute Depression acute Generalized anxiety disorder acute Injury of right upper arm ac [place] ASCVD (arteriosclerotic cardiovascular disease) acute Atrial thrombus [...] acute Ventricular tachycardia August 04, 2018 acute [facility] Work Phone: Hiszbde general Narrative - Reported* Type Description Date [...] see surgical hx Hospitalization History heart issues [facility] Other [facility] Other [facility] general Narrative - Reported* Type Description Date [...] see surgical hx Hospitalization History heart issues [facility] Other History of Present illness Narrative* She is referred by Dr. Hoskins for evaluation for ablation of atrial flutter. * She has remote history of FL , cardiogenic shock, PCI circumflex and iABP, with persistent severe LV dysfunction. She later occluded her cicumflex. Years later, she had HF and severe MR and underwentmitral valve repair at [facility]. She had recurrent VT and atrial arrhythmias, and underwent several ablations and repeat percutaneous MVR at [facility]. After her MVR and ablation in July,, [...] reviewed * Outside records: * Discharge summary [facility] Oct 2021 * Cardiology consult Oct 2021 * ECG Oct 2021 * H and P Oct 2021 * Echo Oct 2021. LVEF 15% * ECG: Today. Atrial flutter. LAD. QT 400 ms * See signed ECG and check /Paceart. * Imp / Plan * Paroxsymal atrial flutter. Mutliple ICD shocks. Shared decision making re: atrial flutter management. Preop cardiac evaluation performed. [employer] decision tool. She opts for EP study ablation of atrial flutter. Procedures, risks, benefits, and imponderables reviewed. Consented. * Chronic systolic heart failure. Stable NYHA III C HF. Reviewed meds. Continue meds. Refills. * Sustained VT s/p ablations at [facility]. No documentation of ablations available in chart at time of visit * CAD, chronic. See above. Reviewed meds. Continue meds. Refills. * Biventricular ICD for refractor heart failure. Medtronic [id number]. Reviewed device check. Followed at [facility]. * Preop cardiac eval. See orders. [...] needed, treatment options, risks, benefits, and imponderables. [employer] lifestyle changes and behavioral modification discussed. All questions answered in detail. Counseling over 50% visit regarding above. Patient appreciative of care. * Grammar * Please excuse grammatical or dictation errors as software dictation application being used. -[facility] [address] DO Work Phone: Hospital Discharge instructions* Attachments The following attachments cannot be sent through Care Everywhere. * Hypokalemia (Sami) [facility] Dis[facility] instructions Additional Instructions It does not [...] Lovenox. They will tell you when to stop.[facility] Work Phone: Hospital Discharge instructionsAmbulatory Orders* Referral to Psychiatry Time Frame: 02/22/24, Location: None Selected [facility] Work Phone: Hospital Discharge instructions Additional Instructions Please have a PT/INR drawn on 04/03/24.[facility] Work Phone: Reason for visit [facility][note 2] nurse RC/waiting for referralCary [facility] Other Summary Purpose Family History No Family [...] FoundDocuments on File Type Date Recorded 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 Advance Directive(s) 06/18/2020 4:28 PM [...] Documents on File Type Date Recorded 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 Advance Directive(s) 03/12/2021 1:21 PM Advance Directive(s) 12/27/2020 3:12 PM Advance Directive(s) 08/18/2020 1:26 PM Advance Directive(s) 08/17/2020 6:49 PM Advance Directive(s) 08/11/2020 1:34 PM [facility] Advance Directive(s) 07/23/2020 12:14 PM [...] reflux disease) History of aneurysm History of FL (myocardial infarction) History of mitral valve replacement Hypokalemia Migraines Restless leg syndrome Right shoulder pain Right upper limb pain Depression Generalized anxiety disorder Chief Complaint ^ chest pain follow up Fall Chest pain Reason for Visit Atrial fibrillation Coronary artery disease Generalized anxiety disorder GERD (gastroesophageal reflux disease) History of aneurysm History of FL (myocardial infarction) History of mitral valve replacement [...] reflux disease) History of aneurysm History of FL (myocardial infarction) History of mitral valve replacement [...] pain acute Elevated troponin I level ac [place] Ischemic cardiomyopathy with implantable cardioverter-defibrillator (ICD) acute [...] acut e Chief Complaint Order sent to [facility] for testing due in patient referred by Dr. Hoskins for possible ablation. Seen at [facility] 11/04/2021atient is here today for a scheduled follow upAmiodarone Order sent to [facility] for testing due in May Reason for Referral Specialty Diagnoses / Procedures Referred By Purnima ferris Referred To Contact Pharmacist / Pharmacy Diagnoses Longstanding persistent atrial fibrillation (HCC) Swapnil Brand MD [address] [place] [address] [facility] [address] [place] [address] Referral ID Status Reason Start Date Expiration Date Visits Requested Visits Authorized [id number] Authorized Specialty Services Required 10/06/2023 10/05/2024 99 99 Scheduling Instructions [facility] Medication Management Question Answer New Start No Tx Agent Warfarin INR Goal 2.0-3.0 [3] Tx Duration Indefinite Comments Electronic signature for this referral acknowledges acceptance of entering into a collaborative practice agreement pursuant to Section 4729.39 of the [place] Revised Code. Specialty Diagnoses / Procedures Referred By Purnima ferris Referred To Contact Cardiology Diagnoses ICD (implantable cardioverter-defibrillator) battery depletion Procedures Cardiac Device Check - In Clinic Margareth Nunez MD [address] [facility] [address] [place] [address] Referral ID Status Reason Start Date Expiration Date Visits Requested Visits Authorized [id number] Pending Review Perform Procedure 3 07/26/2024 52 52 Additional Source Comments INFORMATION SOURCE (unrecogn ized section and content) DATE CREATED AUTHOR 10/19/2018 [facility] DATE CREATED AUTHOR AUTHOR'S ORGANIZ ATION 09/30/2021 [facility] DATE CREATED AUTHOR AUTHOR'S ORGANIZ ATION 02/07/2022 [facility] DATE CREATED AUTHOR AUTHOR'S ORGANIZ ATION 04/26/2022 [employer] DATE CREATED AUTHOR AUTHOR'S ORGANIZ ATION 02/06/2023 [facility] DATE CREATED AUTHOR AUTHOR'S ORGANIZ ATION 08/29/2023 [facility] DATE CREATED AUTHOR AUTHOR'S ORGANIZ ATION 09/30/2023 [facility] DATE CREATED AUTHOR AUTHOR'S ORGANIZ ATION 10/05/2023 [facility] DATE CREATED AUTHOR AUTHOR'S ORGANIZ ATION 10/14/2023 [facility] DATE CREATED AUTHOR AUTHOR'S ORGANIZ ATION 01/07/2024 [facility] DATE CREATED AUTHOR AUTHOR'S ORGANIZ ATION 04/26/2024 [facility] DATE CREATED AUTHOR AUTHOR'S ORGANIZ ATION 05/22/2024 [facility] DATE CREATED AUTHOR AUTHOR'S ORGANIZ ATION 05/26/2024 [facility] Source Comments (unrecognize d section and content) In the event this informatio n is protected by the Federal Confidentiality of Alcohol and Drug Abuse Patient Records regulations: The Federal rules restrict any use of the information to criminally investigate or prosecute any alcohol or drug abuse patient.[facility] the event this information is protected by the Federal Confidentiality of Alcohol and Drug Abuse Patient Records regulations: The Federal rules restrict any use of the information to criminally investigate or prosecute any alcohol or drug abuse patient.[facility] HospitalIn the event this information is protected by the Federal Confidentiality of Alcohol and Drug Abuse Patient Records regulations: The Federal rules restrict any use of the information to criminally investigate or prosecute any alcohol or drug abuse patient.[facility] HospitalIn the event this information is protected by the Federal Confidentiality of Alcohol and Drug Abuse Patient Records regulations: The Federal rules restrict any use of the information to criminally investigate or prosecute any alcohol or drug abuse patient.[facility] the event this information is protected by the Federal Confidentiality of Alcohol and Drug Abuse Patient Records regulations: The Federal rules restrict any use of the information to criminally investigate or prosecute any alcohol or drug abuse patient.[facility]In the event this information is protected by the Federal Confidentiality of Alcohol and Drug Abuse Patient Records regulations: The Federal rules restrict any use of the information to criminally investigate or prosecute any alcohol or drug abuse patient.[facility]In the event this information is protected by the Federal Confidentiality of Alcohol and Drug Abuse Patient Records regulations: The Federal rules restrict any use of the information to criminally investigate or prosecute any alcohol or drug abuse patient.[facility]In the event this information is protected by the Federal Confidentiality of Alcohol and Drug Abuse Patient Records regulations: The Federal rules restrict any use of the information to criminally investigate or prosecute any alcohol or drug abuse patient.[facility]In the event this information is protected by the Federal Confidentiality of Alcohol and Drug Abuse Patient Records regulations: The Federal rules restrict any use of the information to criminally investigate or prosecute any alcohol or drug abuse patient.[facility]In the event this information is protected by the Federal Confidentiality of Alcohol and Drug Abuse Patient Records regulations: The Federal rules restrict any use of the information to criminally investigate or prosecute any alcohol or drug abuse patient.[facility] HospitalIn the event this information is protected by the Federal Confidentiality of Alcohol and Drug Abuse Patient Records regulations: The Federal rules restrict any use of the information to criminally investigate or prosecute any alcohol or drug abuse patient.[facility]In the event this information is protected by the Federal Confidentiality of Alcohol and Drug Abuse Patient Records regulations: The Federal rules restrict any use of the information to criminally investigate or prosecute any alcohol or drug abuse patient.[facility]In the event this information is protected by the Federal Confidentiality of Alcohol and Drug Abuse Patient Records regulations: The Federal rules restrict any use of the information to criminally investigate or prosecute any alcohol or drug abuse patient.[facility] HospitalIn the event this information is protected by the Federal Confidentiality of Alcohol and Drug Abuse Patient Records regulations: The Federal rules restrict any use of the information to criminally investigate or prosecute any alcohol or drug abuse patient.[facility] HospitalIn the event this information is protected by the Federal Confidentiality of Alcohol and Drug Abuse Patient Records regulations: The Federal rules restrict any use of the information to criminally investigate or prosecute any alcohol or drug abuse patient.[facility] HospitalIn the event this information is protected by the Federal Confidentiality of Alcohol and Drug Abuse Patient Records regulations: The Federal rules restrict any use of the information to criminally investigate or prosecute any alcohol or drug abuse patient.[facility] HospitalIn the event this information is protected by the Federal Confidentiality of Alcohol and Drug Abuse Patient Records regulations: The Federal rules restrict any use of the information to criminally investigate or prosecute any alcohol or drug abuse patient.[facility] HospitalIn the event this information is protected by the Federal Confidentiality of Alcohol and Drug Abuse Patient Records regulations: The Federal rules restrict any use of the information to criminally investigate or prosecute any alcohol or drug abuse patient.[facility] HospitalIn the event this information is protected by the Federal Confidentiality of Alcohol and Drug Abuse Patient Records regulations: The Federal rules restrict any use of the information to criminally investigate or prosecute any alcohol or drug abuse patient.[facility] HospitalIn the event this information is protected by the Federal Confidentiality of Alcohol and Drug Abuse Patient Records regulations: The Federal rules restrict any use of the information to criminally investigate or prosecute any alcohol or drug abuse patient.[facility] Care Teams (unrecognized sec tion and content) Team Status: Active Member Role Status Dates Karen Garner MD Primary Care Provider Active Team Status: Active Member Role Status Dates Darian Smiley DO Attending Provider Active Start: November 29, 2003 Team Status: Inactive Member Role Status Dates Amanda Grace APRN JEWELRY MECHANIC-C Primary Care Provider Active Start: November 11, 2023 End: November 11, 2023 Verona Hoskins APRN Attending Provider Active Start: November 11, 2023 End: November 11, 2023 Team Status: Inactive Member Role Status Dates Tanner Mae Jr, MD Emergency Provider Active Start: January 24, 2024 End: January 24, 2024 Karen Garner MD Primary Care Provider Active Start: January 24, 2024 End: January 24, 2024 Adjunct Psychology Instructor Relationship Specialty Start Date End Date Robe Alonso (Fax) PCP - General 04/16/10 Nadir Hoskins [address] [place] [address] Physician Cardiology 10/13/18 Margareth Nunez [address] [place] [phone] Cardiology 10/14/18 Violeta Chan MD [address] [place] [address] Peer Financial Counselor Cardiology 07/04/20 Violeta Chan MD [address] [place] [address] Primary Staff Physician Cardiology 02/11/21 Adjunct Psychology Instructor Relationship Specialty Start Date End Date Robe Alonso (Fax) PCP - General 04/16/10 Nadir Hoskins [address] [address] Physician Cardiology 10/13/18 Margareth Nunez [address] [place] [phone] Cardiology 10/14/18 Violeta Chan MD [address] [place] [address] Peer Financial Counselor Cardiology 07/04/20 Violeta Chan MD [address] [place] [address] Primary Staff Physician Cardiology 02/11/21 Team Status: Active Member Role Status Dates Darian Smiley DO Attending Provider Active Team Status: Active Member Role Status Dates PHYSICIAN NO FAMILY Primary Care Provider Active Adjunct Psychology Instructor Relationship Specialty Start Date End Date Robe Alonso (Fax) PCP - General 04/16/10 Nadir Hoskins [address] [place] [address] Physician Cardiology 10/13/18 Mragareth Nunez MD Cardiology 10/14/18 Violeta Chan MD [address] [place] [address] Peer Financial Counselor Cardiology 07/04/20 Violeta Chan MD [address] [place] [address] Primary Staff Physician Cardiology 02/11/21 Adjunct Psychology Instructor Relationship Specialty Start Date End Date Robe Alonso (Fax) PCP - General 04/16/10 Nadir Hoskins [address] [address] Physician Cardiology 10/13/18 Margareth Nunez MD [address] [address] Cardiology 10/14/18 Violeta Chan MD [address] [place] [address] Peer Financial Counselor Cardiology 07/04/20 Violeta Chan MD [address] [place] [address] Primary Staff Physician Cardiology 02/11/21 Adjunct Psychology Instructor Relationship Specialty Start Date End Date Robe Alonso (Fax) PCP - General 04/16/10 Nadir Hoskins [address] [address] Physician Cardiology 10/13/18 Margareth Nunez MD [address] [address] Cardiology 10/14/18 Violeta Chan MD [address] [place] [address] Peer Financial Counselor Cardiology 07/04/20 Violeta Chan MD [address] [place] [address] Primary Staff Physician Cardiology 02/11/21 Adjunct Psychology Instructor Relationship Specialty Start Date End Date Robe Alonso (Fax) PCP - General 04/16/10 Nadir Hoskins [address] [address] Physician Cardiology 10/13/18 Margareth Nunez MD [address] [address] Cardiology 10/14/18 Violeta Chan MD [address] [place] [address] Peer Financial Counselor Cardiology 07/04/20 Violeta Chan MD [address] [place] [address] Primary Staff Physician Cardiology 02/11/21 Adjunct Psychology Instructor Relationship Specialty Start Date End Date Anju Cuevas, [facility] [address] [facility] [place] [address] Physician Oral & Maxillofacial Surgery 06/04/20 Adjunct Psychology Instructor Relationship Specialty Start Date End Date Robe Alonso (Fax) PCP - General 04/16/10 Nadir Hoskins [address] [place] [address] Physician Cardiology 10/13/18 Margareth Nunez MD [address] [address] Cardiology 10/14/18 Violeta Chan MD [address] [place] [address] Peer Financial Counselor Cardiology 07/04/20 Violeta Chan MD [address] [place] [address] Primary Staff Physician Cardiology 02/11/21 Adjunct Psychology Instructor Relationship Specialty Start Date End Date Robe Alonso (Fax) PCP - General 04/16/10 Nadir Hoskins [address] [place] [address] Physician Cardiology 10/13/18 Margareth Nunez MD [address] [address] Cardiology 10/14/18 Violeta Chan MD [address] [place] [address] Peer Financial Counselor Cardiology 07/04/20 Violeta Chan MD [address] [place] [address] Primary Staff Physician Cardiology 02/11/21 Adjunct Psychology Instructor Relationship Specialty Start Date End Date Robe Alonso (Fax) PCP - General 04/16/10 Nadir Hoskins [address] [address] Physician Cardiology 10/13/18 Margareth Nunez MD [address] [address] Cardiology 10/14/18 Violeta Chan MD [address] [place] [address] Peer Financial Counselor Cardiology 07/04/20 Violeta Chan MD [address] [place] [address] Primary Staff Physician Cardiology 02/11/21 Adjunct Psychology Instructor Relationship Specialty Start Date End Date Robe Alonso (Fax) PCP - General 04/16/10 Nadir Hoskins DO [address] [address] Physician Cardiology 10/13/18 Margareth Nunez MD [address] [address] Cardiology 10/14/18 Violeta Chan MD [address] [place] [address] Peer Financial Counselor Cardiology 07/04/20 Violeta Chan MD [address] [place] [address] Primary Staff Physician Cardiology 02/11/21 Adjunct Psychology Instructor Relationship Specialty Start Date End Date Robe Alonso PCP - General 04/16/10 Nadir Hoskins DO [address] [place] [address] Physician Cardiology 10/13/18 Margareth Nunez MD [address] [place] [address] Cardiology 10/14/18 Violeta Chan MD [address] [place] [address] Peer Financial Counselor Cardiology 07/04/20 Violeta Chan MD [address] [place] [address] Primary Staff Physician Cardiology 02/11/21 Adjunct Psychology Instructor Relationship Specialty Start Date End Date Robe Alonso (Fax) PCP - General 04/16/10 Nadir Hoskins DO [address] [facility] [address] [place] [address] Physician Cardiology 10/13/18 Margareth Nunez MD [address] [address] Cardiology 10/14/18 Violeta Chan MD [address] [place] [address] Peer Financial Counselor Cardiology 07/04/20 Violeta Chan MD [address] [place] [address] Primary Staff Physician Cardiology 02/11/21 Team Status: Active Member Role Status Dates Amanda Grace APRN JEWELRY MECHANIC-C Primary Care Provider Active Team Status: Inactive Member Role Status Dates Margareth Nunez MD Attending Provider Active Amanda Grace APRN JEWELRY MECHANIC-C Primary Care Provider Active Adjunct Psychology Instructor Relationship Specialty Start Date End Date Robe Alonso (Fax) PCP - General 04/16/10 Nadir Hoskins DO [address] [facility] [address] [place] [address] Physician Cardiology 10/13/18 Margareth Nunez MD [address] [facility] [address] [place] [address] Cardiology 10/14/18 Violeta Chan MD [address] [place] [address] Peer Financial Counselor Cardiology 07/04/20 Violeta Chan MD [address] [place] [address] Primary Staff Physician Cardiology 02/11/21 Adjunct Psychology Instructor Relationship Specialty Start Date End Date Shaikh Rojas MD [address] [place] [address] PCP - General 04/24/22 Jameel Valenzuela, OCEANOLOGIST-OPERATIONS CLERK [address] [facility] Office [facility], [address] [address] Nurse Practitioner Cardiology 09/02/23 Margareth Nunez MD [address] [facility] Office [facility], [address] [address] Consulting Physician Cardiology 09/02/23 Adjunct Psychology Instructor Relationship Specialty Start Date End Date Shaikh Rojas MD [address] [place] [phone] PCP - General 04/24/22 Jameel Valenzuela, OCEANOLOGIST-OPERATIONS CLERK [address] [facility] Office [address], [address] [place] [address] Nurse Practitioner Cardiology 09/02/23 Margareth Nunez MD [address] [facility] Office d[address], [address] [place] [address] Consulting Physician Cardiology 09/02/23 Adjunct Psychology Instructor Relationship Specialty Start Date End Date Liam Hyman MD [address] [facility] [place] [address] PCP - General Family Medicine 09/29/23 Jameel Valenzuela APRN-OPERATIONS CLERK [address] [facility] [address] [place], [place] [phone] Nurse Practitioner Cardiology 09/02/23 Margareth Nunez MD [address] [facility] [address] [place], [place] [phone] Consulting Physician Cardiology 09/02/23 Adjunct Psychology Instructor Relationship Specialty Start Date End Date Liam Hyman MD [address] [facility] [place] [phone] PCP - General Family Medicine 10/11/23 Adjunct Psychology Instructor Relationship Specialty Start Date End Date Liam Hyman MD [address] [facility] [place] [address] PCP - General Family Medicine 10/11/23 Team Status: Active Member Role Status Dates Karen Garner MD Primary Care Provider Active Start: February 17, 2024 Lina Martin DO Attending Provider Active Start: February 17, 2024 Team Status: Inactive Member Role Status Dates Karen Garner MD Primary Care Provider Active Start: February 18, 2024 End: February 18, 2024 Amanda Grace APRN JEWELRY MECHANIC-C Attending Provider Act zulma Start: February 18, 2024 End: February 18, 2024 Team Status: Inactive Member Role Status Dates aKren Garner MD Primary Care Provider Active Start: February 22, 2024 End: February 22, 2024 Amanda Grace APRN JEWELRY MECHANIC-C Attending Provider Act zulma Start: February 22, 2024 End: February 22, 2024 Team Status: Active Member Role Status Dates Pedro Melo DO Emergency Provider Active Start: March 30, 2024 Amanda Grace APRN JEWELRY MECHANIC-Cici Primary Care Provider Active Start: March 30, [...] In Clinic Margareth Nunez MD [address] [place] [phone] Referral ID Status Reason Start Date Expiration Date Visits Requested Visits Authorized [id number] Pending Review Perform Procedure 3 07/26/2024 52 52 Specialty Diagnoses / Procedures Referred By Contac t Referred To Contact Diagnoses Biventricular implantable cardioverter-defibrillator (ICD) in situ Elective replacement of implantable cardioverter-defibrillator (ICD) battery required Biventricular implantable cardioverter-defibrillator (ICD) in situ [Z95.810] Elective replacement of implantable cardioverter-defibrillator (ICD) battery required [Z95.810] Procedures [place] RMVL IMPLTBL DFB PLS GEN W/RPLCMT PLS GEN PIPE CREW FOREMAN LD ICD BIV Generator Change Out Margareth Nunez MD [address] [facility], [address] [address] [address] [place] [address] Referral ID Status Reason Start Date Expiration Date Visits Re quested Visits Authorized [id number] 1 1 Reason Comments Dizziness Specialty Diagnoses / Procedures Referred By Purnima ferris Referred To Contact Diagnoses Hypokalemia Dizziness Swapnil Brand MD [address] [place] [address] [facility] [address] [place] [address] Referral ID Status Reason Start Date Expiration Date Visits Re quested Visits Authorized [id number] 1 1 Specialty Diagnoses / Procedures Referred By Purnima ferris Referred To Contact Pharmacist / Pharmacy Diagnoses Longstanding persistent atrial fibrillation (HCC) Swapnil Brand MD [address] [place] [address] [facility] [address] [place] [address] Referral ID Status Reason Start Date Expiration Date Visits Requested Visits Authorized [id number] Authorized Specialty Services Required 10/06/2023 10/05/2024 99 [...] (Continued by Anesthesia - Provider: Sy Gastelum APRN-MANAGER AGRICULTURAL)0937 (Due: Stopped - Provider: Yessi Miller APRN-OPERATIONS CLERK)0948 (Anesthesia Volume Adjustment - Provider: Sy Gastelum APRN-MANAGER AGRICULTURAL) PRN Medication Order 09/27/2023 09/28/2023 09/29/2023 acetaminophen [...] Cesar RN)0915 (Given - Provider: Sy Gastelum, OCEANOLOGIST-MANAGER AGRICULTURAL) potassium chloride 20 mEq in 100 mL [...] Zuñiga, RN)2221 (New Bag - Provider: Moncho Zuñgia, RN)2325 (New Bag - Provider: Patrice Mukherjee [...] RT Bronchodilator Protocol: Yes - Inpatient Protocol [id number] 50-300-40 MG per capsule 1 capsule 1 [...] BE BASED ON THE PRIMARY CLINICAL RECORDS. [employer] [facility]. provides no warranty or guarantee of the accuracy or completeness of information in this document.
[2024-05-27] MEDS: LEVOTHYROXINE SODIUM 75 MCG TABLET PO (05:38)
[2024-05-27] MEDS: ROPINIROLE HCL 1 MG TABLET 2 MG PO (05:38)
[2024-05-27] MEDS: CLONAZEPAM 0.5 MG TABLET PO (05:38)
[2024-05-27] MEDS: BUTALB/ACETAMINOPHEN/CAFFEINE 50-325-40MG TABLET 1 TAB PO ×3 (05:45→18:15)
[2024-05-27 06:13] LABS: Basophils Absolute Auto 0.1 10^3/uL (0.0-0.1); Basophils Percent Auto 0.8 % (0.2-2.0); Eosinophils Percent Auto 0.1 % (0.9-7.0); Hematocrit 37.4 % (36.0-48.0); Hemoglobin 10.6 g/dL (12.0-16.0); Immature Granulocytes Abs Auto 0.05 10^3/uL (0.00-0.03); Immature Granulocytes Pct Auto 0.4 % (0.0-0.5); Lymphocytes Absolute Auto 0.8 10^3/uL (1.2-3.8); Lymphocytes Percent Auto 6.9 % (20.5-60.0); Mean Corpuscular HGB Conc 28.3 g/dL (29.9-35.2); Mean Corpuscular Hemoglobin 19.3 pg (26.7-34.0); Monocytes Absolute Auto 0.1 10^3/uL (0.3-0.8); Monocytes Percent Auto 0.8 % (1.7-12.0); Neutrophils Absolute Auto 10.4 10^3/uL (1.4-6.5); Platelet Count 214 10^3/uL (150-450); Red Cell Distribution Width 23.1 % (11.0-15.0); White Blood Count 11.5 10^3/uL (4.0-11.0)
[2024-05-27 06:27] LABS: Partial Thromboplastin Time 25.4 sec (22.3-36.2); Prothrombin Time 10.6 sec (9.0-11.6)
[2024-05-27 06:36] LABS: Alanine Aminotransferase 13 U/L (14-59); Albumin Globulin Ratio 0.7; Albumin Level 3.2 g/dL (3.4-5.0); Alkaline Phosphatase 300 U/L (46-116); Aspartate Amino Transferase 22 U/L (15-37); BUN Creatinine Ratio 11.7; Bilirubin Total 0.3 mg/dL (0.2-1.0); Calcium 8.8 mg/dL (8.5-10.1); Chloride 103 mmol/L (98-107); Estimated GFR (African America >60 (>=60); Estimated GFR (Non-African Ame 56 (>=60); Globulin 4.3 g/dL; Glucose 244 mg/dL (74-106); Magnesium 2.6 mg/dL (1.8-2.4); Sodium 137 mmol/L (136-145); Total Protein 7.5 g/dL (6.4-8.2)
[2024-05-27] MEDS: ISOSORBIDE MONONITRATE 30 MG TAB.ER.24H PO (09:23)
[2024-05-27] MEDS: FUROSEMIDE 40 MG TABLET PO (09:23)
[2024-05-27] MEDS: OMEPRAZOLE 40 MG CAPSULE.DR PO (09:24)
[2024-05-27] MEDS: AMIODARONE HCL 200 MG TABLET PO (09:24)
[2024-05-27] MEDS: SERTRALINE HCL 50 MG TABLET PO (09:25)
[2024-05-27] MEDS: ASPIRIN 81 MG TAB.CHEW PO (09:25)
[2024-05-27] MEDS: METOPROLOL SUCCINATE 100 MG TAB.ER.24H PO (09:45)
--- NOTE | 2024-05-27 11:24 | P.HP_ITS ---
HPI H&P: HPI History of Present Illness Chief complaint: L SIDE TINGLING Narrative: 53y o female with hx of migraine headache, CAD, HFrEF, Parox Afib presented to ED last evening for numbness/tingling in UE and LE, blurred vision and poor balance/unsteady gait. He symptoms were also associated with severe retro orbital pain and occipital headache. Patient neurological symptoms resolved by the time she had CTH but her HASKINS persisted and she is still complaining of ongoing 04/08 reto orbital and occipital headache. She reports being diagnosed with intra-cranial aneurysms recently in October and that since then she is struggling with poorly controlled, increasingly worse migraine HASKINS. CTH in ED did not show any sig intracranial pathology. Tele stroke team was consulted and it was felt that her neurological symptoms were likely due to Acute migraine but given her risk factors, it was felt necessary to r/o acute ischemic stroke as the underlying etiology of her presenting illness. Patient was admitted overnight and while she does not have any neurological symptoms, she is still complaining of left sided retro-obital pain and occipital headache. Her pain did not improve with Fioricet that she uses at home as needed. Patient's INR is subtherapeutic and she reports difficulty with adhering to her treatment regimen because of poor social situation as she is currently homeless and is living with different friends. She also has poorly controlled anxiety/depression, worsened last year because of three close family members passing away last year. Opioid HPI Opioid Management Most Recent Pain and Opioid Data: Last Pain Scale 8 05/27/24 05:50 Last Pain Assessment 05/27/24 05:50 Last ORT Total Score 0 05/27/24 01:24 Last ORT Risk Category Low Risk 05/27/24 01:24 Review of Systems ROS Status of ROS 10 or more systems reviewed and unremark able except as noted in history and below [facility] Medical History (Updated 05/27/24 @ 11:49 by Shaikh Crystal MD) Non compliance w medication regimen ?Z91.148 - Patient's other noncompliance with medication regimen for other reason (ICD-10) On Coumadin for atrial fibrillation ?I48.91 - Unspecified atrial fibrillation (ICD-10) ?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 (ICD-10) Tension headache ?G44.209 - Tension-type headache, unspecified, not intractable (ICD-10) Chronic wound of head ?S01.90XA - Unspecified open wound of unspecified part of head, initial encounter (ICD-10) Heat exhaustion ?T67.5XXA - Heat exhaustion, unspecified, initial encounter (ICD-10) Headache ?R51.9 - Headache, unspecified (ICD-10) Abscess of skin or subcutaneous tissue ?L02.91 - Cutaneous abscess, unspecified (ICD-10) Other medical devices associated with adverse incidents ?Y82.8 - Other medical devices associated with adverse incidents (ICD-10) Anxiety ?F41.9 - Anxiety disorder, unspecified (ICD-10) Chest pain ?R07.9 - Chest pain, unspecified (ICD-10) Infection of scalp ?L08.9 - Local infection of the skin and subcutaneous tissue, unspecified (ICD-10) Ankle sprain ?S93.409A - Sprain of unspecified ligament of unspecified ankle, initial encounter (ICD-10) Generalized anxiety disorder ?F41.1 - Generalized anxiety disorder (ICD-10) Lactic acidosis ?E87.20 - Acidosis, unspecified (ICD-10) Fluid overload ?E87.70 - Fluid overload, unspecified (ICD-10) Nausea ?R11.0 - Nausea (ICD-10) Generalized weakness ?R53.1 - Weakness (ICD-10) ANTONINA (generalized anxiety disorder) ?F41.1 - Generalized anxiety disorder (ICD-10) RLS (restless legs syndrome) ?G25.81 - Restless legs syndrome (ICD-10) Hypothyroid ?E03.9 - Hypothyroidism, unspecified (ICD-10) Hyperlipidemia ?E78.5 - Hyperlipidemia, unspecified (ICD-10) CAD (coronary artery disease) ?I25.10 - Atherosclerotic heart disease of [place] coronary artery without angina pectoris (ICD-10) Paroxysmal atrial fibrillation ?I48.0 - Paroxysmal atrial fibrillation (ICD-10) Chronic HFrEF (heart failure with reduced ejection fraction) ?I50.22 - Chronic systolic (congestive) heart failure (ICD-10) Hypertension ?I10 - Essential (primary) hypertension (ICD-10) Rheumatic fever ?I00 - Rheumatic fever without heart involvement (ICD-10) Pacemaker ?Z95.0 - Presence of cardiac pacemaker (ICD-10) Myocardial infarct, old ?I25.2 - Old myocardial infarction (ICD-10) Multifocal pneumonia ?J18.9 - Pneumonia, unspecified organism (ICD-10) CHF (congestive heart failure) ?I50.9 - Heart failure, unspecified (ICD-10) Acute torticollis ?M43.6 - Torticollis (ICD-10) Fracture of head of humerus with routine healing ?S42.293D - Other displaced fracture of upper end of unspecified humerus, subsequent encounter for fracture with routine healing (ICD-10) Closed head injury ?S09.90XA - Unspecified injury of head, initial encounter (ICD-10) Fall from chair ?W07.XXXA - Fall from chair, initial encounter (ICD-10) Surgical History History of hysterectomy ?Z90.710 - Acquired absence of both cervix and uterus (ICD-10) Mitral valve replaced ?Z95.2 - Presence of prosthetic heart valve (ICD-10) Family History Grandmother Family history of CHF (congestive heart failure) Family history of cancer Family history of hypertension Father Family history of COPD (chronic obstructive pulmonary disease) Family history of cancer Family history of diabetes mellitus Family history of hypertension Sister Family history of COPD (chronic obstructive pulmonary disease) Mother Family history of cancer Family history of hypertension Family history of myocardial infarction Family history of stroke Brother Family history of cancer Grandfather Family history of cancer Social History Within the past year, how often did you have a drink containing alcohol: never Score interpretation: A score less than 3 is consistent with normal alcohol consumption. Smoking status: Former smoker Non-prescribed substance use: denies use Little interest or pleasure in doing things: not at all Feeling down, depressed, or hopeless: not at all Meds Home Medications and Allergies Home Medications ?Medication ?Instructions ?Recorded ?Confirmed ?Type atorvastatin 80 mg tablet 80 mg PO .QHS 03/18/23 05/27/24 History isosorbide mononitrate 30 mg 30 mg PO DAILY 03/18/23 05/26/24 History tablet,extended release 24 hr levothyroxine 75 mcg tablet 75 mcg PO DAILY 03/18/23 05/26/24 History nitroglycerin 0.4 mg sublingual 0.4 mg sublingual Q5M PRN chest 03/18/23 05/26/24 History tablet pain omeprazole 40 mg capsule,delayed 40 mg PO DAILY 03/18/23 05/26/24 History release potassium chloride 20 mEq 20 meq PO DAILY 03/18/23 05/26/24 History tablet,extended release(part/cryst) trazodone 50 mg tablet 50 mg PO QPM 03/18/23 05/26/24 History warfarin 5 mg tablet 5 mg PO DAILY 03/18/23 05/26/24 History albuterol sulfate 90 mcg/actuation 1 puff inhalation Q6H PRN SOB 05/07/23 05/26/24 History aerosol inhaler rjvmyadioy-ymafmncnuknoa-zwbifxil 1 cap PO Q4H PRN headache 05/07/23 05/26/24 History 50 mg-300 mg-40 mg capsule (Fioricet) metoprolol succinate 100 mg 100 mg PO .qhs 05/07/23 05/27/24 History tablet,extended release 24 hr amiodarone 200 mg tablet (Pacerone) 200 mg PO QD #30 tabs 05/20/23 05/26/24 Rx hydroxyzine HCl 10 mg tablet 10 mg PO TID PRN anxiety 04/27/24 05/27/24 History olanzapine 2.5 mg tablet 5 mg PO .QHS 04/27/24 05/27/24 History sertraline 50 mg tablet 50 mg PO DAILY 04/27/24 05/27/24 History methocarbamol 750 mg tablet 750 mg PO TID PRN pain #20 tabs 05/23/24 05/26/24 Rx lorazepam 0.5 mg tablet 0.5 mg PO DAILY PRN anxiety 05/27/24 05/27/24 History ropinirole 0.25 mg tablet 0.25 mg PO QPM 05/27/24 05/27/24 History ropinirole 0.25 mg tablet 0.5 mg PO .qhs 05/27/24 05/27/24 History torsemide 20 mg tablet 20 mg PO BIDWM 05/27/24 05/27/24 History Allergies Allergy/AdvReac Type Severity Reaction Status Date / Time erythromycin base Allergy Unknown Unknown Verified 05/26/24 19:58 ondansetron [From Zofran] AdvReac tachycardia Verified 05/26/24 19:58 Exam Constitutional Vital Signs, click to edit/add: Last Vital Signs Temp 97.2 F L 05/27/24 01:34 Pulse 82 05/27/24 09:24 Resp 20 05/27/24 09:23 BP 144/81 H 05/27/24 09:24 Pulse Ox 97 05/27/24 09:23 O2 Del Method Room Air 05/27/24 01:34 Documenting provider has reviewed patient's vital signs: yes Common normals: no apparent distress and oriented x3 General appearance: cooperative HENHI Common normals: normocephalic and head/scalp atraumatic Head and scalp: normocephalic and atraumatic Eye Common normals: conjunctivae normal and no scleral icterus Conjunctiva: conjunctiva(e) normal Respiratory Common normals: normal respiratory effort and clear to auscultation bilaterally Effort & inspection: able to speak in complete sentences Auscultation: clear to auscultation bilaterally Cardio Common normals: regular rate, S1 normal heart sound and S2 normal heart sound Rate: regular rate Heart sounds: S1 normal and S2 normal GI Common normals: Normal to inspection, nondistended, normoactive bowel sounds present, soft to palpation, non-tender and no hepatosplenomegaly Palpation: soft and no hepatosplenomegaly Extremity Common normals: no clubbing, cyanosis or edema Neuro Common normals: oriented x3, moves all extremities and no focal motor deficits Psych Common normals: mental status grossly normal, denies hallucinations, denies homicidal ideation and denies suicidal ideation Results Labs Labs: Short CBC 05/26/24 05/27/24 Range/Units 21:20 05:58 WBC 12.0 H 11.5 H (4.0-11.0) 10^3/uL Hgb 10.6 L 10.6 L (12.0-16.0) g/dL Hct 36.2 37.4 (36.0-48.0) % Plt Count 260 214 (150-450) 10^3/uL BMP 05/26/24 05/27/24 20:34 05:58 Sodium 145 137 Potassium 2.4 L* 4.0 Chloride 97 L 103 Carbon Dioxide 24.4 22.0 BUN 11.0 12.0 Creatinine 0.98 1.03 H Glucose 127 H 244 H Calcium 8.3 L 8.8 Liver Function 05/27/24 Range/Units 05:58 Total Bilirubin 0.3 (0.2-1.0) mg/dL AST 22 (15-37) U/L ALT 13 L (14-59) U/L Alkaline Phosphatase 300 H (46-116) U/L Albumin 3.2 L (3.4-5.0) g/dL Assessment and Plan Assessment and Plan (1) Migraine: Assessment and Plan: Suspect her neurological symptoms were due to acute migraine HASKINS. She is still complaining of headache but her neurological symptoms have resolved. Ordered IV toradol/benadryl and phenergan for acute migraine HASKINS. No IVF as hx of HFrEF and is at risk of volume overload. CTH- no acute finding. CTA head/neck pending - patient reports hx of intracranial aneurysm diagnosed earlier this year. Need CTA imaging to ascertain if her HASKINS symptoms are related to intracranial aneurysms. No evidence of acute bleed on CTH. Qualifiers: Intractability: intractable Migraine type: hemiplegic Status migrainosus presence: with status migrainosus Qualified Code(s): G43.411 - Hemiplegic migraine, intractable, with status migrainosus (2) TIA (transient ischemic attack): Assessment and Plan: Presented with Left sided numbness/tingling and unsteady gait. Symptoms resolved by the time she had CTH. Suspected to be due to migraine HASKINS but given her hx this could very likely be due to ischemic/embolic stroke. She has hx of CAD, Afib, not currently anticoagulated due to non compliance (INR normal)She also has previous hx of LV thrombus Supposed to be on Coumadin. CTA head/neck pending. MRI could not be performed as patient has AICD and our MRI is not compatible. Consult Tele stroke. ECHO ordered. on ASA, statin. Check Lipid Panel/A1C. (3) Hypokalemia: Assessment and Plan: low potassium on arrival. Normal now. Her neurological symptoms could partly be due to low potassium. (4) Chronic HFrEF (heart failure with reduced ejection fraction): Assessment and Plan: Euvolemic. C/w home medications. (5) Paroxysmal atrial fibrillation: Assessment and Plan: In NSR. Resume coumadin. Supposed to be on Coumadin but not using it. Prior hx of LV thrombus also. On amiodarone. Prior hx of dig toxicity. (6) CAD (coronary artery disease): Assessment and Plan: s/p PCI. No CP, SOB,no evidence of active cardiac ischemia On ASA, BB, statin. Qualifiers: Coronary Disease-Associated Artery/Lesion type: [place] artery [place] vs. transplanted heart: [place] heart Associated angina: without angina Qualified Code(s): I25.10 - Atherosclerotic heart disease of [place] coronary artery without angina pectoris (7) Hypertension: Assessment and Plan: At goal. C/w home medications. Qualifiers: Hypertension type: primary hypertension Qualified Code(s): I10 - Essential (primary) hypertension (8) ANTONINA (generalized anxiety disorder): Assessment and Plan: Appears calm/comfortable. C/w home medications. (9) Hypothyroid: Assessment and Plan: c/w levothyroxine. check TSH Qualifiers: Hypothyroidism type: unspecified Qualified Code(s): E03.9 - Hypothyroidism, unspecified (10) On Coumadin for atrial fibrillation: Assessment and Plan: Pharmacy consulted for Coumadin dosing. Normal INR. Does not seem like she is using Coumadin. (11) RLS (restless legs syndrome): Assessment and Plan: C/w Requip (12) Hyperlipidemia: Assessment and Plan: C/w statin check lipid panel. Qualifiers: Hyperlipidemia type: unspecified Qualified Code(s): E78.5 - Hyperlipidemia, unspecified (13) Non compliance w medication regimen: Assessment and Plan: Consult certified social workers in health care. Counseled on importance of compliance.
[2024-05-27] MEDS: KETOROLAC TROMETHAMINE 30 MG/ML VIAL IVP (12:32)
[2024-05-27] MEDS: DIPHENHYDRAMINE HCL 50 MG/ML VIAL 25 MG IV (12:35)
[2024-05-27] MEDS: PROMETHAZINE HCL 25 MG in 0.9 % SODIUM CHLORIDE 50 ML 204 MG IV (12:39)
[2024-05-27 12:54] LABS: Chol HDL Ratio 2.6; Cholesterol 140 mg/dL (<=200); HDL Cholesterol 54 mg/dL (40-60); Thyroid Stimulating Hormone 1.256 uIU/mL (0.358-3.740); Triglycerides 75 mg/dL (<=150)
[2024-05-27] MEDS: ENOXAPARIN SODIUM 80 MG/0.8 ML SYRINGE 70 MG SUBQ ×2 (13:36→21:07)
[2024-05-27 14:10] LABS: Estimated Average Glucose 123 mg/dL; Glycohemoglobin A1C 5.9 % (4.5-6.2)
[2024-05-27] MEDS: WARFARIN SODIUM 2.5 MG TABLET 7.5 MG PO (17:32)
[2024-05-27] MEDS: ROPINIROLE HCL 0.25 MG TABLET PO (17:32)
[2024-05-27] MEDS: TORSEMIDE 20 MG TABLET PO (17:33)
--- NOTE | 2024-05-27 18:35 | PC.NURSE ---
Nursing note for shift: 08-Dr. Rojas updated on patient. 0932-Dr. Rojas at bedside. 1145-patient to radiology 1220-patient back from radiology, notified that 20g IV infiltrated. 1225-Dr. Rojas updated that patient's 20g infiltrated. 1251-PICC order placed by Dr. Rojas, encouraged cool compresses for infiltrated site. 1433-Ashish from [facility] called to inform RN of being in route. Wanted to know if patient could have a midline. 1436-Dr. Rojas asked if patient could have a midline, requests ask radiology. 1441-Radiology ok with midline. 1450-Ashish from [facility] at bedside. 1501-[facility] called. will be in touch within 24 hours.
--- NOTE | 2024-05-27 19:00 | CT_ITS ---
The [address] [address] Patient Name: HORACIO LOMBARDI MRN: [facility]:[id number] date: 1970 Sex: F Assigned Patient Location: ICU Current Patient Location: ICU Accession/Order Number: [id number] Exam Date: 05/27/2024 19:55 Report Date: 05/27/2024 23:08 At the request of: SHAIKH JAMI Procedure: CT angio head CTA HEAD/NECK. HISTORY: CVA COMPARISON: None. TECHNIQUE: CT angiogram of the head and neck obtained after administration of 75 mL of nonionic intravenous contrast material, Isovue-300. Multiplanar and volume rendered 3-D reformats were created. NASCET criteria was used for evaluation of luminal stenosis. 3-D vascular images were constructed on a separate workstation. FINDINGS: THORACIC AORTA: Normal. There is a normal anatomy at the origin of the great vessels. RIGHT COMMON CAROTID ARTERY: No significant stenosis. RIGHT EXTERNAL CAROTID ARTERY: No significant stenosis. RIGHT INTERNAL CAROTID ARTERY: No significant stenosis. LEFT COMMON CAROTID ARTERY: No significant stenosis. LEFT EXTERNAL CAROTID ARTERY: No significant stenosis. LEFT INTERNAL CAROTID ARTERY: No significant stenosis. RIGHT VERTEBRAL ARTERY: No significant stenosis. LEFT VERTEBRAL ARTERY: No significant stenosis. [place]: The bilateral intracranial internal carotid arteries, anterior cerebral arteries, middle cerebral arteries and anterior and posterior communicating arteries are normal. POSTERIOR INTRACRANIAL CIRCULATION: The basilar artery and posterior cerebral arteries are patent, without stenosis or occlusion. DURAL SINUSES: Patent. There is a 3 x 4 mm inferomedially directed outpouching involving the left cavernous ICA.. No intracranial AVM. LUNG APICES: The lung apices are clear. SOFT TISSUES: The prevertebral soft tissues are normal. No soft tissue inflammation. OSSEOUS STRUCTURES: No acute osseous abnormality throughout the imaged axial skeleton and skull base. CT/CT angio head IMPRESSION: 1. No high-grade or hemodynamically flow-limiting stenosis of the major arteries of the head and neck. 2. Left cavernous ICA 4 mm outpouching suggestive of an aneurysm. Electronically authenticated by: PACO DUNBAR Date: 05/27/2024 23:08
--- NOTE | 2024-05-27 19:00 | CT_ITS ---
The [address] [address] Patient Name: HORACIO LOMBARDI MRN: [facility]:[id number] date: 1970 Sex: F Assigned Patient Location: ICU Current Patient Location: ICU Accession/Order Number: [id number] Exam Date: 05/27/2024 19:55 Report Date: 05/27/2024 23:08 At the request of: SHAIKH JAMI Procedure: CT angio neck CTA HEAD/NECK. HISTORY: CVA COMPARISON: None. TECHNIQUE: CT angiogram of the head and neck obtained after administration of 75 mL of nonionic intravenous contrast material, Isovue-300. Multiplanar and volume rendered 3-D reformats were created. NASCET criteria was used for evaluation of luminal stenosis. 3-D vascular images were constructed on a separate workstation. FINDINGS: THORACIC AORTA: Normal. There is a normal anatomy at the origin of the great vessels. RIGHT COMMON CAROTID ARTERY: No significant stenosis. RIGHT EXTERNAL CAROTID ARTERY: No significant stenosis. RIGHT INTERNAL CAROTID ARTERY: No significant stenosis. LEFT COMMON CAROTID ARTERY: No significant stenosis. LEFT EXTERNAL CAROTID ARTERY: No significant stenosis. LEFT INTERNAL CAROTID ARTERY: No significant stenosis. RIGHT VERTEBRAL ARTERY: No significant stenosis. LEFT VERTEBRAL ARTERY: No significant stenosis. [place]: The bilateral intracranial internal carotid arteries, anterior cerebral arteries, middle cerebral arteries and anterior and posterior communicating arteries are normal. POSTERIOR INTRACRANIAL CIRCULATION: The basilar artery and posterior cerebral arteries are patent, without stenosis or occlusion. DURAL SINUSES: Patent. There is a 3 x 4 mm inferomedially directed outpouching involving the left cavernous ICA.. No intracranial AVM. LUNG APICES: The lung apices are clear. SOFT TISSUES: The prevertebral soft tissues are normal. No soft tissue inflammation. OSSEOUS STRUCTURES: No acute osseous abnormality throughout the imaged axial skeleton and skull base. CT/CT angio neck IMPRESSION: 1. No high-grade or hemodynamically flow-limiting stenosis of the major arteries of the head and neck. 2. Left cavernous ICA 4 mm outpouching suggestive of an aneurysm. Electronically authenticated by: PACO DUNBAR Date: 05/27/2024 23:08
[2024-05-27] MEDS: METHOCARBAMOL 500 MG TABLET 750 MG PO (21:05)
[2024-05-27] MEDS: OLANZapine 5 MG TABLET PO (21:09)
[2024-05-27] MEDS: ATORVASTATIN CALCIUM 40 MG TABLET 80 MG PO (21:09)
[2024-05-27] MEDS: ROPINIROLE HCL 0.25 MG TABLET 0.5 MG PO (21:11)
[2024-05-27] MEDS: TRAZODONE HCL 50 MG TABLET PO (21:12)
[2024-05-27] MEDS: KETOROLAC TROMETHAMINE 30 MG/ML VIAL 15 MG IVP (22:07)
[2024-05-27] MEDS: LORAZEPAM 0.5 MG TABLET PO (22:11)
[2024-05-28] VITALS (11 sets, daily range): BP systolic 144–153; BP diastolic 94–102; PULSE 77–81; TEMP 36.4–36.9; O2SAT 95–99
[2024-05-28] MEDS: KETOROLAC TROMETHAMINE 30 MG/ML VIAL 15 MG IVP (03:00)
[2024-05-28 05:36] LABS: Basophils Absolute Auto 0.1 10^3/uL (0.0-0.1); Basophils Percent Auto 0.9 % (0.2-2.0); Eosinophils Absolute Auto 0.2 10^3/uL (0.0-0.7); Eosinophils Percent Auto 1.1 % (0.9-7.0); Hematocrit 32.5 % (36.0-48.0); Immature Granulocytes Pct Auto 0.7 % (0.0-0.5); Lymphocytes Absolute Auto 3.2 10^3/uL (1.2-3.8); Lymphocytes Percent Auto 21.9 % (20.5-60.0); Mean Corpuscular HGB Conc 27.7 g/dL (29.9-35.2); Mean Corpuscular Hemoglobin 18.8 pg (26.7-34.0); Monocytes Absolute Auto 1.2 10^3/uL (0.3-0.8); Monocytes Percent Auto 8.3 % (1.7-12.0); Neutrophils Absolute Auto 9.8 10^3/uL (1.4-6.5); Neutrophils Percent Auto 67.1 % (43.0-75.0); Platelet Count 240 10^3/uL (150-450); Red Cell Distribution Width 23.2 % (11.0-15.0); White Blood Count 14.5 10^3/uL (4.0-11.0)
[2024-05-28 05:54] LABS: INR 1.06; Prothrombin Time 11.2 sec (9.0-11.6)
[2024-05-28 05:58] LABS: Red Blood Count 4.78 10^6/uL (4.20-5.40)
[2024-05-28 06:06] LABS: Alanine Aminotransferase 15 U/L (14-59); Albumin Globulin Ratio 0.8; Albumin Level 2.9 g/dL (3.4-5.0); Alkaline Phosphatase 246 U/L (46-116); Anion Gap 13.2; Aspartate Amino Transferase 25 U/L (15-37); BUN Creatinine Ratio 17.6; Bilirubin Total 0.2 mg/dL (0.2-1.0); Calcium 8.7 mg/dL (8.5-10.1); Carbon Dioxide 23.9 mmol/L (21.0-32.0); Chloride 102 mmol/L (98-107); Estimated GFR (African America 45 (>=60); Estimated GFR (Non-African Ame 37 (>=60); Globulin 3.7 g/dL; Glucose 119 mg/dL (74-106); Potassium 3.1 mmol/L (3.5-5.1); Sodium 136 mmol/L (136-145); Total Protein 6.6 g/dL (6.4-8.2)
[2024-05-28] MEDS: LEVOTHYROXINE SODIUM 75 MCG TABLET PO (06:08)
[2024-05-28] MEDS: TORSEMIDE 20 MG TABLET PO (07:23)
[2024-05-28] MEDS: ISOSORBIDE MONONITRATE 30 MG TAB.ER.24H PO (09:17)
[2024-05-28] MEDS: AMIODARONE HCL 200 MG TABLET PO (09:19)
[2024-05-28] MEDS: METOPROLOL SUCCINATE 100 MG TAB.ER.24H PO (09:19)
[2024-05-28] MEDS: SERTRALINE HCL 50 MG TABLET PO (09:20)
[2024-05-28] MEDS: ASPIRIN 81 MG TAB.CHEW PO (09:20)
[2024-05-28] MEDS: OMEPRAZOLE 40 MG CAPSULE.DR PO (09:20)
[2024-05-28] MEDS: BUTALB/ACETAMINOPHEN/CAFFEINE 50-325-40MG TABLET 1 TAB PO (09:21)
[2024-05-28] MEDS: POTASSIUM CHLORIDE 10 MEQ ER TABLET 40 MEQ PO (09:21)
[2024-05-28] MEDS: LORAZEPAM 0.5 MG TABLET PO (10:03)
--- NOTE | 2024-05-28 11:30 | P.DS_ITS ---
DS: Providers Provider Date of admission: 05/27/24 00:54 Primary care physician: AYANA GOETZ Admitting clinician: Shaikh Crystal Attending physician on admission: Shaikh Crystal Consults: 05/27/24 09:43 Physical Therapy Eval and Treat Routine Reason for consultation: weakness 05/27/24 11:07 Consult to Telestroke Routine Reason for consultation: suspected TIA Attending physician on discharge: Shaikh Crystal Discharging clinician: Shaikh Crystal Anticipated date of discharge: 05/28/24 DS: Diagnosis Discharge Diagnosis (1) Migraine: Qualifiers: Migraine type: hemiplegic Status migrainosus presence: with status migrainosus Intractability: intractable Qualified Code(s): G43.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 transplanted heart: [place] heart Associated angina: without angina Qualified Code(s): I25.10 - Atherosclerotic heart disease of [place] coronary artery without angina pectoris (7) Hypertension: Qualifiers: Hypertension type: primary hypertension Qualified Code(s): I10 - Essential (primary) hypertension (8) ANTONINA (generalized anxiety disorder): (9) Hypothyroid: Qualifiers: Hypothyroidism type: unspecified Qualified Code(s): E03.9 - Hypothyroidism, unspecified (10) On Coumadin for atrial fibrillation: (11) RLS (restless legs syndrome): (12) Hyperlipidemia: Qualifiers: Hyperlipidemia type: unspecified Qualified Code(s): E78.5 - Hyperlipidemia, unspecified (13) Non compliance w medication regimen: DS: Summary Hospital Course Hospital Course: 53y o female with hx of migraine headache, CAD, HFrEF, Parox Afib presented to ED for numbness/tingling in UE and LE, blurred vision and poor balance/unsteady gait. He symptoms were associated with severe retro orbital pain and occipital headache. Patients neurological symptoms resolved by the time she had CTH but her HASKINS persisted until the next morning when she received migraine cocktail (Iv Benadryl, Phenergan and Toradol). Tele stroke was consulted and their impression was that her neurological symptoms were likely due to Acute migraine but given her risk factors, it was felt necessary to r/o acute ischemic stroke as the underlying etiology of her presenting illness. She had CTA Head/neck that revealed small 4mm aneurysm in Left ICA but otherwise no significant or acute findings were noted on CTA. Since she has AICD, MRI could not be performed as our MRI is not compatible with her AICD. This was d/w Tele stroke and they were ok with an outpatient MRI. Upon arrival, patient also had very low potassium 2.4 and required supplementation for it. Her IV access infiltrated during the course of admission and she had RUE swelling and pain because of it. This was treated conservatively with cold compresses/arm elevation. Her INR while on Coumadin was sub therapeutic. She was started back on Coumadin and was ordered to receive Lovenox. She refused to take it. She will need f/u with Coumadin clinic as outpatient. Patient is medically stable for discharge. She has no neurological signs and symptoms. Her HASKINS is also now gone. She will need close f/u as outpatient for her chronic medical conditions. Status at Discharge Functional status at discharge: independent ambulation Overall status at discharge: patient is back to baseline Time Spent with Patient Time attestation: Total time spent providing and/or coordinating discharge services: Quality: Stroke Onset of Symptoms Date: 05/26/24 Onset of Symptoms Time: 18:53 Exam Constitutional Vital Signs, click to edit/add: Last Vital Signs Temp 97.5 F L 05/28/24 08:00 Pulse 80 05/28/24 10:00 Resp 18 05/28/24 09:17 BP 145/100 H 05/28/24 09:19 Pulse Ox 99 05/28/24 09:17 O2 Del Method Room Air 05/28/24 08:00 Documenting provider has reviewed patient's vital signs: yes Common normals: no apparent distress and oriented x3 General appearance: cooperative Eye Common normals: conjunctivae normal and no scleral icterus Conjunctiva: conjunctiva(e) normal Respiratory Common normals: normal respiratory effort and clear to auscultation bilaterally Effort & inspection: able to speak in complete sentences Auscultation: clear to auscultation bilaterally Cardio Common normals: regular rate, S1 normal heart sound and S2 normal heart sound Rate: regular rate Heart sounds: S1 normal and S2 normal GI Common normals: Normal to inspection, nondistended, normoactive bowel sounds present, soft to palpation, non-tender and no hepatosplenomegaly Palpation: soft and no hepatosplenomegaly Extremity Common normals: no clubbing, cyanosis or edema Neuro Common normals: oriented x3, moves all extremities and no focal motor deficits Psych Common normals: mental status grossly normal, denies hallucinations, denies homicidal ideation and denies suicidal ideation DS: Data Data Completed and Pending Labs on day of discharge: Labs from last 24 hours 05/28/24 05/27/24 05:05 05:58 WBC 14.5 H RBC 4.78 Hgb 9.0 L Hct 32.5 L MCV 68.0 L MCH 18.8 L MCHC 27.7 L RDW 23.2 H Plt Count 240 Neut % (Auto) 67.1 Lymph % (Auto) 21.9 [place] % (Auto) 8.3 Eos % (Auto) 1.1 Baso % (Auto) 0.9 Neut # (Auto) 9.8 H Lymph # (Auto) 3.2 [place] # (Auto) 1.2 H Eos # (Auto) 0.2 Baso # (Auto) 0.1 Abs Immat Gran (auto) 0.10 H Imm/Tot Granulo (auto) 0.7 H PT 11.2 INR 1.06 Sodium 136 Potassium 3.1 L Chloride 102 Carbon Dioxide 23.9 Anion Gap 13.2 BUN 26.0 H Creatinine 1.48 H Est GFR ( Amer) 45 L Est GFR (Non-Af Amer) 37 L BUN/Creatinine Ratio 17.6 Glucose 119 H Estimat Average Glucose 123 Hemoglobin A1c 5.9 Calcium 8.7 Total Bilirubin 0.2 AST 25 ALT 15 Alkaline Phosphatase 246 H Total Protein 6.6 Albumin 2.9 L Globulin 3.7 Albumin/Globulin Ratio 0.8 Triglycerides 75 Cholesterol 140 LDL Cholesterol, Calc 71.0 VLDL Cholesterol 15.0 HDL Cholesterol 54 Cholesterol/HDL Ratio 2.6 TSH 1.256 Discharge Plan Discharge Disposition: Home, Self-Care Discharge Medications: Continued metoprolol succinate 100 mg tablet extended release 24 hr 100 mg PO .qhs albuterol sulfate 90 mcg/actuation HFA aerosol inhaler 1 puff INHALATION Q6H PRN (Reason: SOB) [id number] [Fioricet] 50-300-40 mg capsule 1 cap PO Q4H PRN (Reason: headache) torsemide 20 mg tablet 20 mg PO BIDWM lorazepam 0.5 mg tablet 0.5 mg PO DAILY PRN (Reason: anxiety) ropinirole 0.25 mg tablet 0.25 mg PO QPM Rx Instructions: takes after dinner about 1800 ropinirole 0.25 mg tablet 0.5 mg PO .qhs atorvastatin 80 mg tablet 80 mg PO .QHS trazodone 50 mg tablet 50 mg PO QPM isosorbide mononitrate 30 mg tablet extended release 24 hr 30 mg PO DAILY omeprazole 40 mg capsule,delayed release(DR/EC) 40 mg PO DAILY levothyroxine 75 mcg tablet 75 mcg PO DAILY warfarin 5 mg tablet 5 mg PO DAILY Patient Comments: 5mg mwf, 7.5 mg tuths[place]u nitroglycerin 0.4 mg tablet, sublingual 0.4 mg sublingual Q5M PRN (Reason: chest pain) amiodarone [Pacerone] 200 mg Tablet 200 mg PO QD Qty: 30 0RF olanzapine 2.5 mg tablet 5 mg PO .QHS hydroxyzine HCl 10 mg tablet 10 mg PO TID PRN (Reason: anxiety) sertraline 50 mg tablet 50 mg PO DAILY methocarbamol 750 mg tablet 750 mg PO TID PRN (Reason: pain) Qty: 20 0RF Changed potassium chloride 20 mEq tablet,ER particles/crystals 20 meq PO BID Qty: 0 0RF Activity: increase activity as tolerated Diet: advance to your usual diet Print Language: Spanish Patient Instructions: Migraine Headache (ED) Forms: Portal Instructions Follow Up Appointments: please call ayana goetz np for follow up on wednesday for within one week [phone] F/u with Coumadin clinic for Coumadin/INR monitoring. F/u vascular Neurology in 2-3 weeks
--- NOTE | 2024-05-28 11:52 | PC.NURSE ---
Nursing note for shift: 0812-Dr. Rojas contacted to clarify Potassium orders. 0843-Dr. Rojas ok to give oral Potassium. 0927-Dr. Rojas notified of patient refusing lovenox, toradol, and IV potassium. 0930-teleneuro completed. 1006-Dr. Rojas notified that patient wants to talk about plan of care. She wants to be discharged. 1041-Dr. Rojas notified of patient refusing IV potassium. 1050-Dr. Rojas at bedside, ok to discharge. 1142-Midline IV removed to left upper arm, pressure held and pressure dressing applied. 22g in left forearm removed at this time as well. 1156-Kym TOBIAS provided discharge instructions.
--- NOTE | 2024-05-30 15:25 | CM.DCFOLLOWU ---
Number dialed states there are calling restrictions.
== END 2024-05-28 12:00 | disposition home or self-care (01) ==
LOC: ER 20:42 → ICU 05-27 00:57
PROVIDERS: Registered Nurse; Admitting Provider Internal Medicine; Emergency Provider Internal Medicine; PCP Nurse Practitioner Family; Visit Provider Internal Medicine
DX: G43.411 Hemiplegic migraine, intractable, with status migrainosus (principal); G45.9 Transient cerebral ischemic attack, unspecified; E87.6 Hypokalemia; I11.0 Hypertensive heart disease with heart failure; I50.22 Chronic systolic (congestive) heart failure; I48.0 Paroxysmal atrial fibrillation; I25.10 Atherosclerotic heart disease of native coronary artery without angina pectoris; F41.1 Generalized anxiety disorder; E03.9 Hypothyroidism, unspecified; Z79.890 Hormone replacement therapy; G25.81 Restless legs syndrome; E78.5 Hyperlipidemia, unspecified; Z91.148 Patient's other noncompliance with medication regimen for other reason; Z79.899 Other long term (current) drug therapy; Z79.01 Long term (current) use of anticoagulants; Z87.891 Personal history of nicotine dependence
CPT/HCPCS: 36415; 36592; 70450; 70496; 70498; 71045; 80048; 80053; 80061; 83036; 83735; 83880; 84443; 84484; 85025; 85610; 85730; 93005; 94761; 96365; 96367; 96372; 96375; 96376; 97162; 99285; C1887; G0378; J0696; J1200; J1650; J1885; J2250; J2919; J3475; Q3014; Q9967

== ENCOUNTER 2024-09-30 08:47 | Emergency (ER) | payer MEDICARE, MEDICAID, SELFPAY ==
[2024-09-30 08:56] VITALS: BP 116/72; PULSE 82; TEMP 36.7; O2SAT 98; BMI 30.1
--- NOTE | 2024-09-30 09:01 | CT_ITS ---
[address] [address] Patient Name: HORACIO LOMBARDI MRN: [id number] date: 1970 Sex: F Assigned Patient Location: ER Current Patient Location: Accession/Order Number: [id number] Exam Date: 09/30/2024 09:40 Report Date: 09/30/2024 10:26 At the request of: MARIANA SHIRLEY Procedure: CT abdomen pelvis wo con EXAM: CT abdomen pelvis wo con HISTORY: rt flank pain COMPARISON: 05/20/2023. TECHNIQUE: Axial CT imaging was performed through the abdomen and pelvis without intravenous contrast. Multiplanar reformats were performed. Dose reduction techniques were achieved by using automated exposure control and/or adjustment of mA and/or kV according to patient size and/or use of iterative reconstruction technique. FINDINGS: Lung bases: Lung bases are clear. No pleural effusion. Left ventricular dilatation. Pericardial partial calcification GI upper: Unremarkable. Liver: Normal size and contour. Gallbladder: Cholecystectomy. Biliary system: No intra or extrahepatic biliary ductal dilatation. Spleen: Normal size. Pancreas: Unremarkable. Adrenal glands: Normal adrenal glands. Kidneys/ureters: Normal contours. No hydronephrosis. No nephrolithiasis or ureterolithiasis. Stable left renal cyst. Acute pyelonephritis cannot be excluded due to lack of intravenous contrast. Vessels: No aneurysm. Lymph Nodes: No lymphadenopathy. Small bowel: No wall thickening or dilatation. Colon: No wall thickening or dilatation. Appendix: No findings of appendicitis. Peritoneal cavity: No free fluid or pneumoperitoneum. Lower : Hysterectomy. Otherwise unremarkable. Bones: No acute bony abnormality. Bilateral pedicle screw fixation of L5-S1. Osteopenia. Soft tissues: No acute finding. Additional findings: None. CT/CT abdomen pelvis wo con IMPRESSION: No renal stone. No acute abnormality. Electronically authenticated by: ADAMS HEBERT Date: 09/30/2024 10:26
[2024-09-30] MEDS: MORPHINE SULFATE 2 MG/ML SYRINGE IV (09:24)
--- OUTSIDE RECORDS SUMMARY | 2024-09-30 09:25 | XMS_ITS | CCD ---
Author Organization [facility] Care Team Providers Care Registration Manager Name Role Phone MAYRA, MARGARETH Admitting Unavailable MAYRA, MARGARETH Attending Unavailable GAVIN, BIRDIE Primary Care Unavailable MAYRA, MARGARETH Admitting Unavailable MAYRA, MARGARETH Attending Unavailable GAVIN, BIRDIE Primary Care Unavailable MAYRA, MARGARETH Admitting Unavailable MAYRA, MARGARETH Attending Unavailable GAVIN, BIRDIE Primary Care Unavailable AGUILA VASQUEZ Attending Unavaila bud ALONSO, BIRDIE Primary Care Unavailable JAMEEL VALENZUELA Attending Unavailfaith ALONSO, BIRDIE Primary Care Unavailable MAYRA, MARGARETH Admitting Unavailable MAYRA, MARGARETH Attending Unavailable GAVIN, BIRDIE Primary Care Unavailable Darian Smiley Attending Provider Birdie Alonso Primary Care Provider Bidrie Alonso Admit Provider Birdie Alonso Attending Provider Darian Smiley Attending Provider Birdie Alonso Primary Care Provider Birdie Alonso Admit Provider Birdie Alonso Attending Provider Unavailable Unavailable PROVIDER, UNKNOWN Attending Unavailable PROVIDER, UNKNOWN Admitting Unavailable PATIENT, SELF Referring Unavailable None, No PCP Unavailable Unavailable Birdie Alonso Primary Care Provider [phone] Diane Hoskins Unavailable Mayra, Margareth J Unavailable Dusitn CLAY, Violeta Unavailable Dustin CLAY, Violeta Unavailable Jeane Dykes Unavailable DO Darian Smiley Attending Provider MD Birdie Alonso Primary Care Provider MD Birdie Alonso Attending Provider MD Birdie Alonso Referring Provider DO Hira Lay Emergency Provider [facility] MD Ken Segovia Admit Provider [phone] MD Ken Rizo Attending Provider Birdie Alonso Primary Care Provider Daine Hoskins Unavailable Margareth Nunez Unavailable Dustin CLAY, Violeta Unavailable Dustin CLAY, Violeta Unavailable DO Darian Smiley Attending Provider Crystal, Roy Unavailable Birdie Alonso Primary Care Provider [phone] Diane Hoskins Unavailable [phone] Margareth Nunez MD Unavailable Birdie Alonso Primary Care Provider Diane Hoskins Unavailable [phone] Margareth Nunez MD Unavailable Dustin CLAY, Violeta Unavailable [phone] Dustin CLAY, Violeta Unavailable [phone] Cuevas DMD, Anju Unavailable FAWWAD, ROY [...] Admitting Unavailable JEAN CLAUDE GUZMAN Consulting Unavailable Mignon Alejo Consulting Unavailable CORIE, DR Juan Miguel Gamez Consulting Unavailable CORIE, DR Juan Miguel Gamez Attending Unavailable CORIE, DR Juan Miguel Gamez Admitting Unavailable SHAIKH Shawna ROJAS Primary Care Unavailable SHELLY, DR JC Car Consulting Unavailable Diane Hoskins DO Unavailable Dustin CLAY, Violeta Unavailable [phone] Dustin CLAY, Violeta Unavailable Amanda Grace Unavailable [phone] MD Margareth Nunez Attending Provider PETE Grace Primary Care Provider Crystal CLAY, Primary Care Provider Bianca ELECTRICIAN CONSTRUCTOR SUPERVISOR-BIOENGINEER, Jameel E Unavailable Margareth Nunez MD Unavailable Liam Hyman MD Primary Care Provider Mayra Chang, Margareth Referring Unavailable Mayra Chang, Margareth Attending Unavailable Arjun EPPS Attending Unavailable NILLori, Arjun Car Attending Unavailable NILArjun Sandoval Attending Unavailable Unavailable Primary Care Provider UnavailLiam Xiong MD Primary Care Provider SUNDAY, NORAH Referring Unavailable LIAM HYMAN Primary Care Unavailable SUNDAY, NORAH Referring Unavailable LIAM HYMAN Primary Care Unavailable SUNDAY, NORAH Admitting Unavailable SUNDAY, NORAH Attending Unavailable VINCENT GARZA Consulting Unavailfaith ROBLES AJAY Consulting Unavailable LIAM HYMAN Primary Care Unavailable PEDRO BLAS Referring Unavailable MD Tanner Mae Jr Emergency Provider MD Karen Garner Primary Care Provider [phone] DO Pedro Melo Emergency Provider [phone] PETE Grace Primary Care Provider MD Kendrick Jorgensen Admit Provider MD Kendrick Jorgensen Attending Provider MD Patrica Mcmahon Attending Provider Red Strickland DO Primary Care Provider Margareth Nunez MD Unavailable Liam Hyman MD Primary Care Provider GAVIN, BIRDIE A Referring Unavailable ALONSO, BIRDIE A Primary Care Unavailable ALONSO, BIRDIE A Primary Care Unavailable BELL, EHAD Consulting Unavailable INPATIENT, TELENEUROLOGY Consulting Unavail able RED STRICKLAND Attending Unavailable GAVIN, BIRDIE Gamez Referring Unavailable FURLONG, RED Case Primary Care Unavailable FURLONG, RED Case Attending Unavailable NASHNG, RED Case Referring Unavailable KOLBYLONG, RED Case Primary Care Unavailable Karen Perkins Consulting Unavailable Thuane, Nely Admitting Unavailable Yoshi Dee Attending Unavailable Amanda Grace Primary Care Unavailable Megan Hoskins Consulting Unavailable Marilee, Dubois Consulting Unavailable Diane Mcfarland Consulting Unavail able Perla Urrutia Consulting Unavailable Aguila Vences Consulting UnavailInna Benedict Consulting Unavailable Raymundo, Shweta Consulting Unavailable Huan, Nicolás Najeeb Consulting Unavailab pablo Villatoro, Tarek Consulting Unavailable Arely Burris Consulting Unavailable Patrica Mcmahon Attending Unavailable Thuane, Nely Admitting Unavailable Ghada, Radhaf Consulting Unavailable Red Strickland Primary Care Unavailable Kendrick Jorgensen Admitting Unavailable Patrica Mcmahon Attending Unavailable Karen Perkins Consulting Unavailable Amanda Grace Primary Care Unavailable Megan Hoskins Consulting Unavailable Hunt, Dubois Consulting Unavailable Diane Mcfarland Consulting Unavail able Ghada, Radhaf Consulting Unavailable Aguila Vences Consulting UnavailInna Benedict Consulting Unavailable Raymundo, Shweta Consulting Unavailable Huan, Nicolás Najeeb Consulting Unavailab pablo Villatoro, Tarek Consulting Unavailable Arely Burris Consulting Unavailable Karen Garner Primary Care Unavailable Tanner Mae Jr Admitting Unavailable Tanner Mae Jr Attending Unavailable YESSI MILLER Referring Unavailable LIAM HYMAN Primary Care Unavailable JAMEEL VALENZUELA Referring Unavaila LIAM Torre Primary Care Unavailable MARGARETH NUNEZ Referring Unavailable SHAIKH ROJAS Primary Care Unavailable MARGARETH NUNEZ Admitting Unavailable MARGARETH NUNEZ Attending Unavailable SHAIKH ROJAS Primary Care Unavailable JAMEEL VALENZUELA Attending Unavaila ble BOOGIE LIAM Jose Primary Care Unavailable Unavailable Unavailable Unavailable Allergies Allergy Classification Reported Allergen(s) Allergy Type Date of Onset Reaction(s) Facility Adhesive Tape (1 source) Adhesive Tape Substance Allergy 11-24-19 21 Unknown Reaction [facility] Ondansetron (1 source) Ondansetron Drug Allergy 11-24-19 21 Agitated [facility] Opioid Agonists (2 sources) fentaNYL Drug Allergy 11-24-19 21 Palpitations, Unknown Reaction [facility] (20 sources) Adhesive Tape; Translations: [adhesive tape] Propensity to adverse reactions 08-16-20 20 Unknown Reaction, Redness of Skin [facility] (20 sources) fentaNYL; Translations: [fentanyl] Drug Allergy 09-21-19 20 [facility]ache, [facility] sources) Morphine; Translations: [morphine] Drug Allergy 04-26-20 12 Vomiting, GI intolerance, Nausea/vomiting , Nausea And Vomiting [facility] (20 sources) Ondansetron; Translations: [ONDANSETRON] Drug Allergy 10-13-19 19 Other (See Comments) [facility] (20 sources) erythromycin base; Translations: [Erythromycin Base] Allergy to substance 07-08-20 04 Other: See Comments [facility] (20 sources) Erythromycin; Translations: [erythromycin] Drug Allergy 06-05-20 02 Nausea Only, Unknown, Nausea/vomiting , Vomiting [facility] (20 sources) levoFLOXacin; Translations: [Levaquin] Drug Allergy 08-31-19 24 Other, Palpitations [facility] DO Work Phone: (20 sources) Ondansetron; Translations: [Zofran] Drug Allergy [facility] Repository (20 sources) varenicline; Translations: [Chantix TABS] Drug Allergy 08-31-19 24 Other, Unknown -[facility] DO Work Phone: (20 sources) Adhesive Tape Propensity to adverse reactions to substance 07-08-20 [facility] (20 sources) Ondansetron Drug Allergy 10-13-19 19 Intolerance, Other [facility] (20 sources) Latex; Translations: [LATEX] Drug allergy 11-11-19 24 [facility] (7 sources) Adhesive Tape-Silicones; Translations: [ADHESIVE TAPE-SILICONES] Drug Allergy 08-31-19 24 Other [facility] (3 sources) Azithromycin Drug Allergy 10-05-19 24 [facility] (17 sources) Adhesive agent; Translations: [ADHESIVE] Propensity to adverse reactions to drug 07-26-20 [facility] (17 sources) Other; Translations: [OTHER] Propensity to adverse reactions 07-08-20 [facility] (1 source) Latex Drug allergy (disorder) 08-12-20 24 [facility] Repository (2 sources) levoFLOXacin; Translations: [LEVOFLOXACIN] Drug Allergy 08-31-19 24 [facility] Repository (2 sources) Ondansetron; Translations: [ONDANSETRON HCL] Drug Allergy 08-31-19 24 [facility] Repository (2 sources) varenicline; Translations: [VARENICLINE] Drug Allergy 08-31-19 24 [facility] Repository Medications Current Medications Medication Drug [...] 1 capsule by mouth every four hours Npyhgzsepu-Baxdnzswbwgkw-Mjel (Fioricet) 50-300-40 mg capsule Active 1 CAP PO Every 4 hours February 17, 2024 12:15pm Start: 10-07-2023 End: 05-31-2024 take 1 tablet by mouth once nizqhiqshb-awtnizdrlipun-rxff (FIORICET, ESGIC) 50-325-40 mg per tablet Take 1 tablet by mouth. 10/07/2023 05/31/2024 Discontinued (Therapy completed) Start: 10-07-2023 End: 10-07-2023 take 1 tablet by mouth every four hours as needed for headache mzsrcgddbv-iqnzftchlpbmq-mlfrbyin (CHIDI CET, ESGIC) 50-325-40 MG per tablet Take 1 tablet by mouth every 4 hours as needed for Headaches 30 tablet 0 10/07/2023 Active Start: 07-19-2020 take 1 capsule by mo uth every four hours as needed 1 capsule, Oral, EVERY 4 HOURS PRN, Star ting on Wed10/06/23 at 0034, Until Discontinued, Headaches Maximum dose of acetaminophen is 4000 mg from all sources in 24 hours. Start: 07-19-2020 End: 02-17-2024 take 1 capsule by mouth twice daily Ffljyqmkam-Vknjsbfycdnzv-Wdfd (Fioricet) 50-300-40 mg capsule Discontinued 1 CAP PO Twice daily July 19, 2020 1:00am February 17, 2024 12:19pm Start: 06-07-2020 End: 06-15-2020 take 1 tablet by mouth every eight hours Nrjakkrznr-Akilnjttlglym-Tlwx Discontinu ed 1 TAB PO Q8H June 07, 2020 12:00am June 15, 2020 11:49am Start: 04-26-2020 End: 06-07-2020 take 1 capsule by mouth every eight hours as needed Jqjqqggbkz-Zadxsujixbppq-Qwyu (Fioricet) 50-300-40 mg capsule Discontinued 1 CAP PO Q8H April 26, 2020 12:00am June 07, 2020 6:06pm TK ONE C PO Q 8 H PRN Start: 09-01-2019 End: 04-26-2020 take 1 tablet by mouth three times daily Ixckgddlvh-Gnqpyddbswegh-Ynzv Discontinu ed 1 TAB PO Three times daily 0 September 01, 2019 1:00am April 26, 2020 2:48pm [id number] 200 actuat albuterol 0.09 mg/actuat metered dose inhaler (20 sources) beta2-Adrenergic Agonist Start: 02-17-2024 take 1 [...] Yes - Inpatient Protocol Start: 07-20-2023 albuterol (PRO VENTIL HFA;VENTOLIN HFA) 90 mcg/actuation inhaler if needed. 07/20/2023 Active Start: 07-20-2023 albuterol 90 m cg/actuation inhaler if needed. 07/20/2023 Active take 1 puff(s) by mo uth [...] mg oral tablet (20 sources) Antiarrhythmic Start: 04-24-2024 End: 04-24-2025 take 1 tablet by mouth once daily amiodarone (Pacerone) 200 mg tablet Indications: VT (ventricular tachycardia) (Multi) , Atrial tachycardia (CMS-HCC) , Paroxysmal atrial fibrillation (Multi) Take 1 tablet (200 mg) by mouth once daily. 90 tablet 3 04/24/2024 04/24/2025 Active Start: 07-23-2023 End: 03-27-2024 take 200 mg [...] 1:48pm take 1 tablet by augusto th in the morning amiodarone (PACERONE) 100 mg tablet Take 1 tablet (100 mg total) by mouth in the morning. Active take 4 tablets by mo uth once [...] Platelet Aggregation Inhibitor, Nonsteroidal Anti-inflammatory Drug Start: 04-24-2024 End: 04-24-2025 take 1 tablet by mouth once daily aspirin 81 mg EC tablet Indications: Atrial tachycardia (CMS-HCC) , CAD (coronary artery disease) Take 1 tablet (81 mg) by mouth once daily. HOLD for 1 week. May resume on 10/06/2023. 90 tablet 3 04/24/2024 04/24/2025 Active Start: 10-06-2023 aspirin 81 mg EC tablet [...] End: 09-29-2023 take 1 tablet by mouth in the morning aspirin 81 mg Take 1 tablet (81 mg total) by mouth in the morning. Active Comment on above: Chew and swallow 1 t ablet by mouth once daily. atorvastatin 80 mg oral tablet (20 sources) HMG-CoA Reductase Inhibitor Start: End: take 1 tablet by mouth once daily at bedtime atorvastatin (Lipitor) 80 mg tablet Indications: Mixed hyperlipidemia Take 1 tablet (80 mg) by mouth once daily at bedtime. 90 tablet 3 04/24/2024 04/24/2025 Active Start: 07-18-2012 End: 02-16-2024 take 80 mg by mouth once daily Atorvastatin Discontinu ed 80 MG PO Daily June 07, 2020 12:00am July 19, 2020 8:56am Comment on above: Take 1 tablet by augusto th once daily. bacitracin 0.5 unt/mg topical ointment (2 sources) Start: 02-06-20 13 bacitracin 500 UNIT/GM ointment Apply topically 2 times daily. 30 g 0 02/05/2013 Active Boost - (5 sources) Boost - as direc janis Orally Active cetirizine hydrochloride 10 mg oral tablet (20 sources) Histamine-1 Receptor Antagonist take 1 tablet by mouth once daily eszopiclone 1 mg oral tablet (8 sources) Start: 08-18-20 End: 08-19-20 take 1 tablet by mouth once daily at bedtime eszopiclone (LUNESTA) 1 mg tablet Indications: Insomnia, unspecified type Take 1 tablet (1 mg total) by mouth nightly. Take immediately before bedtime 30 tablet 1 08/19/2024 Active hydrOXYzine hydrochloride 10 mg oral tablet (3 sources) Antihistamine Start: 05-03-20 End: 05-31-20 hydrOXYzine HCL (Atarax) 10 mg tablet 05/03/2024 Active 24 hr isosorbide mononitrate 30 mg extended release oral tablet (20 sources) Nitrate Vasodilator Start: 04-24-20 End: 04-24-20 take 1 tablet by mouth once daily isosorbide mononitrate (IMDUR) 30 mg 24 hr tablet Take 1 tablet (30 mg total) by mouth daily. 04/24/2024 04/24/2025 Active Start: 11-22-2021 take 30 mg by mouth once daily Isosorbide Mononitrate Active 30 MG PO Daily November 22, 2021 12:00am levothyroxine sodium 0.075 mg oral tablet (20 sources) l-Thyroxine Start: 07-20-2023 End: 02-16-2024 levothyroxine (SYNTHROID, LEVOTHROID) 75 MCG tablet Take 1 tablet (75 mcg total) by mouth. 07/20/2023 Active take 1 tablet by augusto th once daily in the morning Levothyroxine Sodium 75 MCG 1 tablet in the morning on an empty stomach Orally Once a day for 90 days Active magnesium oxide 400 mg oral tablet (20 sources) Start: 04-24-2024 End: 04-24-2025 take 1 tablet by mouth twice daily magnesium oxide (Mag-Ox) 400 mg tablet Indications: VT (ventricular tachycardia) (Multi) , Atrial tachycardia (CMS-HCC) , Paroxysmal atrial fibrillation (Multi) Take 1 tablet (400 mg) by mouth 2 times a day. 180 tablet 3 04/24/2024 04/24/2025 Active Start: 10-06-2023 take 400 mg by mouth once jing y 400 mg, Oral, DAILY, First dose on [...] 2018 12:00am April 26, 2020 2:56pm take 2 tablets by mo [facility] in the morning magnesium oxide (MAG-OX) 400 mg tablet Take 2 tablets (800 mg total) by mouth in the morning. Active take 1 tablet by augusto every eight hours Comment on above: Take 1 tablet by augusto twice daily. 50 ml magnesium sulfate 40 mg/ml injection (1 source) Start: 4 2,000 mg, IntraVENous, at 25 mL/hr, Administer over 2 Hours, PRN, Other, Magnesium Replacement, Starting on Wed10/06/23 at 0008 Mag Lab Replacement Action 1.4-1.6 mg/dL &a mp;nbsp; [...] as needed. 0 Active 24 hr memantine hydrochloride 28 mg extended release oral capsule (20 sources) Z-ysdgof-D-aspartat e Receptor Antagonist Start: take 1 capsule by mouth every twenty-four hours in the morning memantine (NAMENDA XR) 28 mg capsule,sprinkle,ER 24hr Take 1 capsule (28 mg total) by mouth in the morning. 30 capsule 5 05/31/2024 Active Start: 02-17-2024 take 28 mg by mouth once daily Memantine Active 28 MG PO Daily February 17, 2024 12:00am Start: 09-07-2019 End: 10-14-2021 take 1 [...] 09, 2018 12:00am April 26, 2020 2:50pm End: 05-31-2024 memantine (NAMENDA) 10 mg ta blet Take 28 mg by mouth daily. 05/31/2024 Discontinued (Dose adjustment) 24 hr metoprolol succinate 100 mg extended release oral tablet (20 sources) beta-Adrenergic Edward Start: 05-19-2024 take 1 tablet by mouth every twenty-four hours metoprolol succinate XL (TOPROL XL) 100 mg 24 hr tablet Take 1 tablet (100 mg total) by mouth. 05/19/2024 Active Start: 04-24-2024 End: 04-24-2025 take 1 tablet by mouth once daily at bedtime metoprolol succinate XL (Toprol-XL) 100 mg 24 hr tablet Indications: Primary hypertension Take 1 tablet (100 mg) by mouth once daily at bedtime. 90 tablet 3 04/24/2024 04/24/2025 Active Start: 01-26-2023 take 1 tablet by augusto th every twenty-four hours at bedtime Metoprolol Succinate [...] Bedtime Quantity: 90 Refills: 3 Ordered: 24-Apr-2022 Margareht Nunez MD Active rdquxpew-erxe-NF-calcium &mi ns (THERAGRAN-M) 9 mg iron-400 mcg tablet (16 sources) mcrrwszo-ovoe-XC -calcium &mins (THERAGRAN-M) 9 mg iron-400 mcg tablet Take 1 tablet by mouth in the morning. Active Multivitamin Adult - (20 sources) take [...] sublingual tablet (20 sources) Nitrate Vasodilator Start: 04-24-2024 nitroglyce rin (Nitrostat) 0.4 mg SL tablet Indications: CAD (coronary artery disease) , Chest pain, unspecified type PLACE 1 TABLET UNDER THE TONGUE EVERY 5 MINUTES FOR UP TO 3 DOSES NEEDED FOR CHEST PAIN. CALL 911 IF PAIN PERSISTS. 25 tablet 5 04/24/2024 Active Start: 02-17-2024 Nitroglycerin Active 0.4 MG SUBLINGUAL As Directed February 17, 2024 12:00am Start: 05-09-2018 End: 10-14-2021 Nitroglycerin Discontinued 0 .4 MG SUBLINGUAL Every 5 minutes x 3 doses June 07, 2020 12:00am October 14, 2021 1:15pm Nitroglycerin 0. 4 MG as directed Sublingual Active OLANZapine 2.5 mg oral tablet (20 sources) Atypical Antipsychotic Start: 05-03-2024 OLANZap ine (ZyPREXA) 2.5 mg tablet 05/03/2024 Active Start: 04-26-2020 End: 11-13-2021 take 1 tablet by mouth once daily at bedtime Olanzapine (Zyprexa) 5 mg Tablet Discontinued 5 MG PO Daily at bedtime October 14, 2021 1:00am November 13, 2021 11:40am Patient has been out of this medication since begining of August 2021 End: 05-31-2024 OLANZapine (ZyPREXA) 2.5 mg tablet Take 2 tablets (5 mg total) by mouth. 05/31/2024 Discontinued (Discontinued by another clinician) Comment on above: Take 5 mg by mouth d aily at bedtime. omeprazole 40 mg delayed release oral capsule (20 sources) [...] June 15, 2020 11:46am Start: 09-20-2019 End: 06-20-2024 take 1 capsule by mouth in the morning omeprazole (PriLOSEC) 40 mg capsule Take 1 capsule (40 mg total) by mouth in the morning. 90 capsule 1 06/21/2024 Active Start: 08-29-2019 End: 06-07-2020 take 40 mg by mouth twice daily Omeprazole Discontinue d 40 MG PO Twice daily August 29, 2019 1:00am June 07, 2020 6:06pm End: 10-11-2023 take 2 capsules by mouth once daily omeprazole (PRILOSEC) 20 MG capsule Take 40 mg by mouth daily. 0 Active perflutren lipid microsphere s 1.3 mL [...] extended release oral tablet (20 sources) Start: 04-24-2024 End: 04-24-2025 potassium chloride (KLOR-CON M 20) 20 MEQ CR tablet Take 1 tablet (20 mEq total) by mouth. 07/18/2024 Active Start: 02-17-2024 End: 02-18-2024 take 10 mEq [...] 09, 2018 12:00am June 07, 2020 6:06pm End: 08-18-2024 potassium chloride (K-DUR,KL OR-CON) 10 MEQ CR tablet Take 2 tablets (20 mEq total) by mouth in the morning. 08/18/2024 Discontinued (Therapy completed) take 20 mEq by mouth twice daily potassium chloride (KLOR-CON) 20 MEQ packet Take 20 mEq by mouth 2 times daily 0 Active take 1 capsule by mo okh every twelve hours Potassium Chloride ER 10 MEQ 1 capsule with food Orally Twice a day Active Potassium Chlori de ER 20 MEQ Oral Tablet Extended Release TAKE 2 TALBET TWICE DAILY X 2 DAYS 12/30 AND 12/31/2021, THEN 2 TABLETS DAILY Quantity: 2 Refills: 0 Ordered: 30-Dec-2021 Bianca FREEMAN-BIOENGINEER, Jameel Active take 1 tablet by augusto once daily Potassium Chloride ER 20 MEQ Oral Tablet Extended Release take 1 talet once daily Quantity: 0 Refills: 0 Ordered: 05-Dec-2021 DO Active promethazine hydrochloride 25 mg oral tablet (20 sources) Phenothiazine Start: 05-23-2024 take 1 tablet by mouth every six hours as needed for nausea and vomiting promethazine (PHENERGAN) 25 mg tablet TAKE 1 TABLET BY MOUTH EVERY 6 HOURS NEEDED FOR NAUSEA and vomiting 05/23/2024 Active Start: 10-09-2021 End: 10-17-2021 take 25 mg by mouth twice daily Promethazine Discontin ued 25 MG PO Twice daily October 13, 2021 1:00am October 17, 2021 1:48pm take 1 tablet by augusto every eight hours as needed promethazine (PHENERGAN) 25 MG tablet Take 25 mg by mouth every 8 hours as needed. 0 Active promethazine (PHENERGAN) 12.5 mg in sodium chloride 0.9 % 50 mL IVPB (1 source) Start: 10-06-2023 promethazine (PHENERGAN) 12.5 mg in sodium chloride 0.9 % 50 mL IVPB rOPINIRole 2 mg oral tablet (20 sources) Nonergot Dopamine Agonist Start: 05-31-2024 End: 01-31-2025 take 1 tablet by mouth once daily rOPINIRole (REQUIP) 2 mg tablet Take 1 tablet (2 mg total) by mouth nightly. 30 tablet 5 09/29/2024 Active Start: 02-17-2024 End: 02-23-2024 take 1 tablet [...] 2020 11:46am Start: 05-09-2018 End: 10-07-2023 take 1 tablet by mouth three times daily rOPINIRole (Requip) 2 mg tablet Take 1 tablet (2 mg) by mouth 3 times a day. 09/30/2021 Active End: 05-31-2024 take 1 tablet by mouth once daily rOPINIRole (REQUIP) 1 mg tablet Take 1 tablet (1 mg total) by mouth nightly. 05/31/2024 Discontinued (Dose adjustment) take 3 tablets by mo [facility] once daily rOPINIRole (REQUIP) 0.25 MG tablet Take 0.75 mg by mouth nightly. 0 Active take 1 tablet by augusto twice daily rOPINIRole HCl - 2 MG Oral Tablet TAKE 1 TABLET TWICE DAILY. Quantity: 0 Refills: 0 Ordered: 20-Oct-2021 DO Active Comment on above: Take 1 tablet by augusto once daily at dinner and take 2 tablets by mouth once daily at bedtime sertraline 100 mg oral tablet (20 sources) Serotonin Reuptake Inhibitor Start: 08-17-2024 take 1 tablet by mouth once daily in the morning sertraline (ZOLOFT) 100 mg tablet Indications: Depressed mood in Alzheimer's disease (CMS-HCC) , Panic anxiety syndrome TAKE 1 & 1/2 (ONE AND ONE-HALF) TABLETS BY MOUTH EVERY MORNING 45 tablet 1 08/17/2024 Active Start: 07-11-2024 take 1.5 tablets by mouth in the morning sertraline (ZOLOFT) 100 mg tablet Indications: Depressed mood in Alzheimer's disease (CMS-HCC) , Panic anxiety syndrome Take 1.5 tablets (150 mg total) by mouth in the morning. 45 tablet 1 07/11/2024 Active Start: 05-31-2024 End: 07-11-2024 take 1 tablet by mouth in the morning sertraline (ZOLOFT) 100 mg tablet Indications: Depressed mood in Alzheimer's disease (CMS-HCC) , Panic anxiety syndrome Take 1 tablet (100 mg total) by mouth in the morning. 30 tablet 2 05/31/2024 07/11/2024 Discontinued (Reorder) Start: 05-31-2024 End: 05-31-2024 take 1 tablet by mouth in the morning sertraline (ZOLOFT) 50 mg tablet Indications: Panic anxiety syndrome Take 1 tablet (50 mg total) by mouth in the morning. 30 tablet 2 05/31/2024 05/31/2024 Discontinued (Dose adjustment) Start: 04-19-2024 sertraline (Zo loft) 50 mg tablet 04/19/2024 Active sucralfate 1000 mg oral tablet (8 sources) Aluminum Complex Start: 08-18-2024 take 1 tablet by mouth at bedtime sucralfate (CARAFATE) 1 gram tablet Take 1 tablet (1 g total) by mouth in the morning and 1 tablet (1 g total) at noon and 1 tablet (1 g total) in the evening and 1 tablet (1 g total) before bedtime. 120 tablet 1 08/18/2024 Active topiramate 25 mg oral tablet (14 sources) Start: 09-28-2024 take 1 tablet by mouth in the morning topiramate (TOPAMAX) 25 mg tablet TAKE 1 TABLET BY MOUTH IN THE MORNING 30 tablet 1 09/28/2024 Active Start: 05-29-2024 End: 09-28-2024 take 1 tablet by mouth in the morning topiramate (TOPAMAX) 25 mg tablet Take 1 tablet (25 mg total) by mouth in the morning. 30 tablet 1 07/25/2024 09/28/2024 Discontinued take 2 tablets by mo uth once daily at bedtime topiramate (TOPAMAX) 100 MG tablet Take 200 mg by mouth daily. At bedtime 0 Active torsemide 20 mg oral tablet (20 sources) Loop Diuretic Start: 04-24-2024 End: 04-24-2025 take 2 tablets by mouth once daily torsemide (DEMADEX) 20 mg tablet Take 2 tablets (40 mg total) by mouth daily. 04/24/2024 04/24/2025 Active Start: 03-30-2024 take 40 mg by mouth once daily Torsemide Active 40 MG PO Daily March 30, 2024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 - 4.5 Performed By: #### B MP, PT, SCAN CBC #### [address] PT Coag (PPP) [Time] 112.6 s High 9.0-12.9 [facility] Comment on above: Order Comment: REDRA W: PRIOR SAMPLE POSSIBLE IV CONTAMINATION. LAB DRAW REQUIESTED Result Comment: A he matocrit value greater than 55% may lead to inaccurate results in coagulation testing. Patients having hematocrit values >55% require a special collection tube for coagulation studies. Please contact the laboratory at [phone] for redraw instructions. Performed By: #### B MP, PT, SCAN CBC #### [address] Scan and CBCon 08-13-2024 Acanthocytes Slight Normal [facility] Comment on above: Performed By: #### B MP, PT, SCAN CBC #### [address] Anisocytosis Ql (Bld) Marked Normal [facility] Comment on above: Performed By: #### B MP, PT, SCAN CBC #### [address] Basophils (Bld) [#/Vol] 0.2 10*3/uL Normal 0.0-0.2 [facility] Comment on above: Performed By: #### B MP, PT, SCAN CBC #### [address] Basophils/100 WBC (Bld) 2.0 % Normal . [facility] Comment on above: Performed By: #### B MP, PT, SCAN CBC #### [address] Crenated RBC Slight Normal [facility] Comment on above: Performed By: #### B MP, PT, SCAN CBC #### [facility] [address] [place] [address] Eosinophils (Bld) [#/Vol] 0.3 10*3/uL Normal 0.0-0.45 [facility] Comment on above: Performed By: #### B MP, PT, SCAN CBC #### [address] Eosinophils/100 WBC (Bld) 4.3 % Normal . [facility] Comment on above: Performed By: #### B MP, PT, SCAN CBC #### [address] Erythrocyte distribution width (RBC) [Ratio] 21.7 % High 11.9-15.3 [facility] Comment on above: Performed By: #### B MP, PT, SCAN CBC #### [address] Hematocrit (Bld) [Volume fraction] 38.5 % Normal 34.0-46.4 [facility] Comment on above: Performed By: #### B MP, PT, SCAN CBC #### [address] Hemoglobin (Bld) [Mass/Vol] 11.8 g/dL Normal 11.8-15.4 [facility] Comment on above: Performed By: #### B MP, PT, SCAN CBC #### [address] Hypochromasia Slight Normal [facility] Comment on above: Performed By: #### B MP, PT, SCAN CBC #### [place] [address] Large Platelets Slight Normal [facility] Comment on above: Result Comment: PERF ORMED BY: [place] [address] PATHOLOGIST DYER AND WASHER MARISELA OCAMPO M.D. Performed By: #### B MP, PT, SCAN CBC #### [address] Lymphocytes (Bld) [#/Vol] 2.7 10*3/uL Normal 1.00-4.8 [facility] Comment on above: Performed By: #### B MP, PT, SCAN CBC #### [address] Lymphocytes/100 WBC (Bld) 33.7 % Normal . [facility] Comment on above: Performed By: #### B MP, PT, SCAN CBC #### [address] MCH (RBC) [Entitic mass] 21.1 pg Low 24.7-34.3 [facility] Comment on above: Performed By: #### B MP, PT, SCAN CBC #### [address] MCV (RBC) [Entitic vol] 68.7 fL Low 80-100 [facility] Comment on above: Performed By: #### B MP, PT, SCAN CBC #### [address] Mean Corpuscular HGB Conc 30.8 g/dL Low 32.0-35.0 [facility] Comment on above: Performed By: #### B MP, PT, SCAN CBC #### [address] Microcytosis Marked Normal [facility] Comment on above: Performed By: #### B MP, PT, SCAN CBC #### [address] Monocytes (Bld) [#/Vol] 0.9 10*3/uL High 0.0-0.8 [facility] Comment on above: Performed By: #### B MP, PT, SCAN CBC #### [place] [address] [place] Monocytes/100 WBC (Bld) 19.56 % Normal 0.00-20.00 [facility] Comment on above: Performed By: #### B MP, PT, SCAN CBC #### [place] [address] [place] Monocytes/100 WBC (Bld) 11.9 % Normal . [facility] Comment on above: Performed By: #### B MP, PT, SCAN CBC #### [place] [address] [place] Neutrophils (Bld) [#/Vol] 3.8 10*3/uL Normal 1.8-7.7 [facility] Comment on above: Performed By: #### B MP, PT, SCAN CBC #### [address] Neutrophils/100 WBC (Bld) 48.1 % Normal . [facility] Comment on above: Performed By: #### B MP, PT, SCAN CBC #### [place] [address] [place] NRBC% 0.3 /100{WBC} Normal 0-0.5 [facility] Comment on above: Performed By: #### B MP, PT, SCAN CBC #### [place] [address] [place] Ovalocytes Slight Normal [facility] Comment on above: Performed By: #### B MP, PT, SCAN CBC #### [address] Platelet Estimate Normal Normal Normal [facility] Comment on above: Performed By: #### B MP, PT, SCAN CBC #### [facility] [address] [place] [address] Platelet mean volume (Bld) [Entitic vol] 9.6 fL Normal 6.3-10.7 [facility] Comment on above: Performed By: #### B MP, PT, SCAN CBC #### [facility] [address] Platelet Morphology Normal Normal Normal [facility] Comment on above: Performed By: #### B MP, PT, SCAN CBC #### [facility] [address] [place] [address] [place] Platelets (Bld) [#/Vol] 172 10*3/uL Normal 150-450 [facility] Comment on above: Performed By: #### B MP, PT, SCAN CBC #### [facility] [address] Poikilocytosis Moderate Normal [facility] Comment on above: Performed By: #### B MP, PT, SCAN CBC #### [facility] [address] [place] [address] RBC (Bld) [#/Vol] 5.61 10*6/uL High 3.60-5.00 [facility] Comment on above: Performed By: #### B MP, PT, SCAN CBC #### [facility] [address] WBC (Bld) [#/Vol] 7.9 10*3/uL Normal 3.8-11.6 [facility] Comment on above: Performed By: #### B MP, PT, SCAN CBC #### [address] XR chest 1V portableon 08-13 XR chest 1V portable [facility] Main [place] [address] [place] [address] XRay Report Signed Patient: Essence Vincent MR#: [id number] : 1970 Acct:[id number] Age/Sex: 54 / F ADM Date: 08/13/24 Loc: Room: [address] [place] [address] Type: ADM INOo Attending Dr: Patrica Mcmahon MD Copies to: DO Patrica Richardson MD Ordering Provider: Julio Nogueira DO Date of Service: 08/12/24 XR/XR chest 1V portable: Arrhythmia/Palpitations Plain film chest Single view HISTORY: Pacemaker fired COMPARISON: 08/17/2024 FINDINGS: SUPPORT DEVICES: None POSTSURGICAL CHANGES: Cardiac valve replacement changes stable. Cardiac device remains intact. HEART: Continued cardiomegaly PULMONARY JANAY: Within normal limits MEDIASTINUM: Unremarkable LUNGS AND PLEURA: No acute lung process, pleural effusion or pneumothorax identified. BONY STRUCTURES: Intact ADDITIONAL FINDINGS None XR/XR chest 1V portable IMPRESSION: No acute process. Continued cardiomegaly. Intact cardiac device. Impression dictated by: Christopher Walker M.D.08/13/2024 9:02 AM Dictation Location: RADIO-PC-20 Transcribed By: [facility] 08/13/24901 Dictated By: Christopher Walker DO 08/13/24899 Signed By: 08/13/24901 Normal [facility] Comprehensive Metabolic Pane siddharth 08-12-2024 Albumin [Mass/Vol] 3.9 g/dL Normal 3.5-5.7 [facility] Comment on above: Performed By: #### M G, DIFF CBC, CMP, HS TROP, CK #### [facility] [address] [place] [id number] [place] Albumin/Globulin [Mass ratio] 1.2 {ratio} Normal [facility] Comment on above: Performed By: #### M G, DIFF CBC, CMP, HS TROP, CK #### [facility] [address] [place] [address] [place] ALP [Catalytic activity/Vol] 167 U/L High 34-104 [facility] Comment on above: Performed By: #### M G, DIFF CBC, CMP, HS TROP, CK #### [facility] [address] [place] [address] [place] ALT [Catalytic activity/Vol] 8 U/L Normal 7-52 [facility] Comment on above: Performed By: #### M G, DIFF CBC, CMP, HS TROP, CK #### [facility] [address] [place] [address] [place] Anion gap [Moles/Vol] 10.9 mmol/L Normal 6.0-15.0 [facility] e [facility] Comment on above: Performed By: #### M G, DIFF CBC, CMP, HS TROP, CK #### [address] AST [Catalytic activity/Vol] 24 U/L Normal 13-39 [facility] Comment on above: Performed By: #### M G, DIFF CBC, CMP, HS TROP, CK #### [address] Bilirubin [Mass/Vol] 0.4 mg/dL Normal 0.3-1.0 [facility] Comment on above: Performed By: #### M G, DIFF CBC, CMP, HS TROP, CK #### [address] Calcium [Mass/Vol] 8.8 mg/dL Normal 8.6-10.3 [facility] Comment on above: Performed By: #### M G, DIFF CBC, CMP, HS TROP, CK #### [address] Chloride [Moles/Vol] 109 mmol/L High 98-107 [facility] Comment on above: Performed By: #### M G, DIFF CBC, CMP, HS TROP, CK #### [address] CO2 [Moles/Vol] 21.3 mmol/L Normal 21.0-31.0 [facility] Comment on above: Performed By: #### M G, DIFF CBC, CMP, HS TROP, CK #### [address] Creatinine [Mass/Vol] 1.01 mg/dL Normal 0.60-1.20 [facility] Comment on above: Performed By: #### M G, DIFF CBC, CMP, HS TROP, CK #### [address] Creatinine Clr Calc Pharmacy 53.59 Normal [facility] Comment on above: Performed By: #### M G, DIFF CBC, CMP, HS TROP, CK #### [address] [place] [address] [place] GFR/1.73 sq M.predicted MDRD (S/P/Bld) [Vol rate/Area] mL/min/{1.73_m2} Normal [facility] Comment on above: Performed By: #### M G, DIFF CBC, CMP, HS TROP, CK #### [facility] [address] [place] [address] [place] Globulin (S) [Mass/Vol] 3.2 g/dL Normal [facility] Comment on above: Performed By: #### M G, DIFF CBC, CMP, HS TROP, CK #### [facility] [address] [place] [address] [place] Glucose [Mass/Vol] 101 mg/dL High 70-100 [facility] Comment on above: Result Comment: [facility] Glucose Reference Range is dependent on time and content of last meal. Glucose of more than 200 mg/dL in a nonstressed, ambulatory subject supports the diagnosis of Diabetes Mellitus. ADA recommended reference range Performed By: #### M G, DIFF CBC, CMP, HS TROP, CK #### [facility] [address] [place] [address] [place] Potassium [Moles/Vol] 3.2 mmol/L Low 3.5-5.1 [facility] Comment on above: Performed By: #### M G, DIFF CBC, CMP, HS TROP, CK #### [facility] [address] [place] [id number] [place] Protein [Mass/Vol] 7.1 g/dL Normal 6.4-8.9 [facility] Comment on above: Performed By: #### M G, DIFF CBC, CMP, HS TROP, CK #### [facility] [address] [place] [id number] [place] Sodium [Moles/Vol] 138 mmol/L Normal 136-145 [facility] Comment on above: Performed By: #### M G, DIFF CBC, CMP, HS TROP, CK #### [facility] [address] [place] [address] [place] Urea nitrogen [Mass/Vol] 12 mg/dL Normal 7-25 [facility] Comment on above: Performed By: #### M G, DIFF CBC, CMP, HS TROP, CK #### [facility] [address] Creatine Kinaseon 08-12-2024 CK [Catalytic activity/Vol] 55 U/L Normal 30-223 [facility] Comment on above: Performed By: #### M G, DIFF CBC, CMP, HS TROP, CK #### [facility] [address] [place] [address] [place] Diff and CBCon 08-12-2024 Anisocytosis Ql (Bld) Marked Normal [facility] Comment on above: Performed By: #### D IFF CBC, HS TROP, MG, BMP #### [address] Basophils/100 WBC (Bld) 1 % Normal 0-2 [facility] Comment on above: Performed By: #### D IFF CBC, HS TROP, MG, BMP #### [address] Crenated RBC Moderate Normal [facility] Comment on above: Performed By: #### D IFF CBC, HS TROP, MG, BMP #### [address] Eosinophils/100 WBC (Bld) 4 % High 1-3 [facility] Comment on above: Performed By: #### D IFF CBC, HS TROP, MG, BMP #### [facility] [address] [place] [address] Erythrocyte distribution width (RBC) [Ratio] 21.5 % High 11.9-15.3 [facility] Comment on above: Performed By: #### D IFF CBC, HS TROP, MG, BMP #### [facility] [address] [place] [address] Giant Platelet Tally 1 /100{WBC} Normal [facility] Comment on above: Performed By: #### D IFF CBC, HS TROP, MG, BMP #### [facility] [address] [place] [address] Helmet Cells Slight Normal [facility] Comment on above: Performed By: #### D IFF CBC, HS TROP, MG, BMP #### [address] Hematocrit (Bld) [Volume fraction] 41.2 % Normal 34.0-46.4 [facility] Comment on above: Performed By: #### D IFF CBC, HS TROP, MG, BMP #### [address] Hemoglobin (Bld) [Mass/Vol] 12.8 g/dL Normal 11.8-15.4 [facility] Comment on above: Performed By: #### D IFF CBC, HS TROP, MG, BMP #### [address] Hypochromasia Slight Normal [facility] Comment on above: Performed By: #### D IFF CBC, HS TROP, MG, BMP #### [address] Large Platelets Slight Normal [facility] Comment on above: Result Comment: PERF ORMED BY: [place] [address] PATHOLOGIST DYER AND WASHER MARISELA OCAMPO M.D. Performed By: #### D IFF CBC, HS TROP, MG, BMP #### [address] Lymphocytes/100 WBC (Bld) 31 % Normal 18-42 [facility] Comment on above: Performed By: #### D IFF CBC, HS TROP, MG, BMP #### [address] MCH (RBC) [Entitic mass] 20.9 pg Low 24.7-34.3 [facility] Comment on above: Performed By: #### D IFF CBC, HS TROP, MG, BMP #### [address] MCV (RBC) [Entitic vol] 67.4 fL Low 80-100 [facility] Comment on above: Performed By: #### D IFF CBC, HS TROP, MG, BMP #### [address] Mean Corpuscular HGB Conc 31.1 g/dL Low 32.0-35.0 [facility] Comment on above: Performed By: #### D IFF CBC, HS TROP, MG, BMP #### [address] Microcytosis Moderate Normal [facility] Comment on above: Performed By: #### D IFF CBC, HS TROP, MG, BMP #### [address] Monocytes/100 WBC (Bld) 16.84 % Normal 0.00-20.00 [facility] Comment on above: Result Comment: PERF ORMED BY: [place] [address] PATHOLOGIST DYER AND WASHER MARISELA OCAMPO M.D. Performed By: #### D IFF CBC, HS TROP, MG, BMP #### [address] Monocytes/100 WBC (Bld) 3 % Normal 2-11 [facility] Comment on above: Performed By: #### D IFF CBC, HS TROP, MG, BMP #### [address] Myelocytes 1 % High 0-0 [facility] Comment on above: Performed By: #### D IFF CBC, HS TROP, MG, BMP #### [address] Ovalocytes Slight Normal [facility] Comment on above: Performed By: #### D IFF CBC, HS TROP, MG, BMP #### [address] Platelet Estimate Normal Normal Normal [facility] Comment on above: Performed By: #### D IFF CBC, HS TROP, MG, BMP #### [address] Platelet mean volume (Bld) [Entitic vol] 9.0 fL Normal 6.3-10.7 [facility] Comment on above: Performed By: #### D IFF CBC, HS TROP, MG, BMP #### [facility] [address] Platelets (Bld) [#/Vol] 208 10*3/uL Normal 150-450 [facility] Comment on above: Performed By: #### D IFF CBC, HS TROP, MG, BMP #### [facility] [address] Poikilocytosis Moderate Normal [facility] Comment on above: Performed By: #### D IFF CBC, HS TROP, MG, BMP #### [facility] [address] Polychromasia Slight Normal [facility] Comment on above: Performed By: #### D IFF CBC, HS TROP, MG, BMP #### [facility] [address] RBC (Bld) [#/Vol] 6.12 10*6/uL High 3.60-5.00 [facility] Comment on above: Performed By: #### D IFF CBC, HS TROP, MG, BMP #### [address] Reactive Lymphocytes 1 % Normal 0-12 [facility] Comment on above: Performed By: #### D IFF CBC, HS TROP, MG, BMP #### [facility] [address] [place] [address] [place] Segmented neutrophils/100 WBC (Bld) 60 % Normal 50-70 [facility] Comment on above: Performed By: #### D IFF CBC, HS TROP, MG, BMP #### [facility] [address] [place] [address] [place] WBC (Bld) [#/Vol] 8.4 10*3/uL Normal 3.8-11.6 [facility] Comment on above: Performed By: #### D IFF CBC, HS TROP, MG, BMP #### [facility] [address] [place] [id number] [place] ECG 12 lead ECGon 08-12-2024 ECG 12 lead ECG [facility] Main [place] [address] [place] [address] Electrocardiograph Report Signed Patient: Essence Vincent MR#: [id number] : 1970 Acct:[id number] Age/Sex: 54 / F ADM Date: 08/13/24 Loc: Room: [address] [place] [address] Type: DIS INOo Attending Dr: Patrica Mcmahon MD Ordering Provider: Julio Nogueira DO Date of Service: 08/12/24 ECG/ECG 12 lead ECG: Arrhythmia/Palpitations Copies to: Test Reason : Blood Pressure : */* mmHG Vent. Rate : 81 BPM Atrial Rate : 81 BPM P-R Int : 288 ms QRS Dur : 176 ms QT Int : 484 ms P-R-T Axes : 1 -82 101 degrees QTcB Int : 562 ms AV dual-paced rhythm with prolonged AV conduction Abnormal ECG When compared with ECG of 07-Aug-2024 22:57, No significant change was found Confirmed by MARILEE CLAY [facility], SHERLY ([id number]) on 08/16/2024 8:55:25 AM Referred By: Electronically Signed By: SHERLY HUNT MD [facility] Transcribed By: MUS Signed By Sherly Hunt MD, FACC 08/16/24 0855 Normal [facility] Magnesiumon 08-12-2024 Magnesium [Mass/Vol] 1.9 mg/dL Normal 1.9-2.7 [facility] Comment on above: Result Comment: PERF ORMED BY: [place] [address] PATHOLOGIST DYER AND WASHER MARISELA OCAMPO M.D. Performed By: #### M G, DIFF CBC, CMP, HS TROP, CK #### [facility] [address] [place], [place] [id number] [place] Troponin I High Sensitivityo n 08-12-2024 Troponin I High Sensitivity 15.2 pg/mL High 0.0-15.0 [facility] Comment on above: Result Comment: PERF ORMED BY: [place] [address] PATHOLOGIST DYER AND WASHER MARISELA OCAMPO M.D. Performed By: #### D IFF CBC, HS TROP, MG, BMP #### [address] Basic Metabolic Panelon 12 Anion gap [Moles/Vol] 13.2 mmol/L Normal 6.0-15.0 Th e [facility] Comment on above: Performed By: #### D IFF CBC, HS TROP, MG, BMP #### [address] Calcium [Mass/Vol] 8.6 mg/dL Normal 8.6-10.3 [facility] Comment on above: Performed By: #### D IFF CBC, HS TROP, MG, BMP #### [address] Chloride [Moles/Vol] 109 mmol/L High 98-107 [facility] Comment on above: Performed By: #### D IFF CBC, HS TROP, MG, BMP #### [address] CO2 [Moles/Vol] 19.3 mmol/L Low 21.0-31.0 [facility] Comment on above: Performed By: #### D IFF CBC, HS TROP, MG, BMP #### [address] Creatinine [Mass/Vol] 1.26 mg/dL High 0.60-1.20 [facility] Comment on above: Performed By: #### D IFF CBC, HS TROP, MG, BMP #### [address] Creatinine Clr Calc Pharmacy 42.89 Normal [facility] Comment on above: Performed By: #### D IFF CBC, HS TROP, MG, BMP #### [address] Estimated GFR 50.418 mL/Min Normal [facility] Comment on above: Performed By: #### D IFF CBC, HS TROP, MG, BMP #### [facility] [address] Glucose [Mass/Vol] 96 mg/dL Normal 70-100 [facility] Comment on above: Result Comment: [place] Glucose Reference Range is dependent on time and content of last meal. Glucose of more than 200 mg/dL in a nonstressed, ambulatory subject supports the diagnosis of Diabetes Mellitus. ADA recommended reference range Performed By: #### D IFF CBC, HS TROP, MG, BMP #### [facility] [address] Potassium [Moles/Vol] 3.5 mmol/L Normal 3.5-5.1 [facility] Comment on above: Performed By: #### D IFF CBC, HS TROP, MG, BMP #### [address] Sodium [Moles/Vol] 138 mmol/L Normal 136-145 [facility] Comment on above: Performed By: #### D IFF CBC, HS TROP, MG, BMP #### [address] Urea nitrogen [Mass/Vol] 13 mg/dL Normal 7-25 [facility] Comment on above: Performed By: #### D IFF CBC, HS TROP, MG, BMP #### [facility] [address] Diff and CBCon 08-08-2024 Anisocytosis Ql (Bld) Marked Normal [facility] Comment on above: Performed By: #### D IFF CBC, HS TROP, MG, BMP #### [facility] [address] [place] [address] [place] Eosinophils/100 WBC (Bld) 6 % High 1-3 [facility] Comment on above: Performed By: #### D IFF CBC, HS TROP, MG, BMP #### [facility] [address] Erythrocyte distribution width (RBC) [Ratio] 22.1 % High 11.9-15.3 [facility] Comment on above: Performed By: #### D IFF CBC, HS TROP, MG, BMP #### [address] Hematocrit (Bld) [Volume fraction] 40.6 % Normal 34.0-46.4 [facility] Comment on above: Performed By: #### D IFF CBC, HS TROP, MG, BMP #### [address] Hemoglobin (Bld) [Mass/Vol] 12.5 g/dL Normal 11.8-15.4 [facility] Comment on above: Performed By: #### D IFF CBC, HS TROP, MG, BMP #### [address] Hypochromasia Slight Normal [facility] Comment on above: Performed By: #### D IFF CBC, HS TROP, MG, BMP #### [address] Lymphocytes/100 WBC (Bld) 34 % Normal 18-42 [facility] Comment on above: Performed By: #### D IFF CBC, HS TROP, MG, BMP #### [address] MCH (RBC) [Entitic mass] 21.0 pg Low 24.7-34.3 [facility] Comment on above: Performed By: #### D IFF CBC, HS TROP, MG, BMP #### [address] MCV (RBC) [Entitic vol] 67.9 fL Low 80-100 [facility] Comment on above: Performed By: #### D IFF CBC, HS TROP, MG, BMP #### [address] Mean Corpuscular HGB Conc 30.9 g/dL Low 32.0-35.0 [facility] Comment on above: Performed By: #### D IFF CBC, HS TROP, MG, BMP #### [address] Monocytes/100 WBC (Bld) 21.40 % High 0.00-20.00 [facility] Comment on above: Result Comment: For adults in ED, MDW > 20.0 may be associated with a higher risk of sepsis during the first 12 hrs of hospital admission Performed By: #### D IFF CBC, HS TROP, MG, BMP #### [address] Monocytes/100 WBC (Bld) 6 % Normal 2-11 [facility] Comment on above: Performed By: #### D IFF CBC, HS TROP, MG, BMP #### [address] Ovalocytes Moderate Normal [facility] Comment on above: Performed By: #### D IFF CBC, HS TROP, MG, BMP #### [address] Platelet Estimate Normal Normal Normal [facility] Comment on above: Performed By: #### D IFF CBC, HS TROP, MG, BMP #### [address] Platelet mean volume (Bld) [Entitic vol] 9.6 fL Normal 6.3-10.7 [facility] Comment on above: Performed By: #### D IFF CBC, HS TROP, MG, BMP #### [address] Platelet Morphology Normal Normal Normal [facility] Comment on above: Result Comment: PERF ORMED BY: [place] [address] PATHOLOGIST [employer] MARISELA OCAMPO M.D. Performed By: #### D IFF CBC, HS TROP, MG, BMP #### [address] Platelets (Bld) [#/Vol] 155 10*3/uL Normal 150-450 [facility] Comment on above: Performed By: #### D IFF CBC, HS TROP, MG, BMP #### [facility] [address] Polychromasia Slight Normal [facility] Comment on above: Performed By: #### D IFF CBC, HS TROP, MG, BMP #### [facility] [address] RBC (Bld) [#/Vol] 5.98 10*6/uL High 3.60-5.00 [facility] Comment on above: Performed By: #### D IFF CBC, HS TROP, MG, BMP #### [facility] [address] Reactive Lymphocytes 1 % Normal 0-12 [facility] Comment on above: Performed By: #### D IFF CBC, HS TROP, MG, BMP #### [facility] [address] Schistocytes Slight Normal [facility] Comment on above: Performed By: #### D IFF CBC, HS TROP, MG, BMP #### [facility] [address] Segmented neutrophils/100 WBC (Bld) 53 % Normal 50-70 [facility] Comment on above: Performed By: #### D IFF CBC, HS TROP, MG, BMP #### [facility] [address] WBC (Bld) [#/Vol] 7.3 10*3/uL Normal 3.8-11.6 [facility] Comment on above: Performed By: #### D IFF CBC, HS TROP, MG, BMP #### [facility] [address] Magnesiumon 08-08-2024 Magnesium [Mass/Vol] 1.8 mg/dL Low 1.9-2.7 [facility] Comment on above: Result Comment: PERF ORMED BY: [place] [address] PATHOLOGIST [employer] MARISELA OCAMPO M.D. Performed By: #### D IFF CBC, HS TROP, MG, BMP #### [address] Prothrombin Time INRon 08-08 INR Coag (PPP) [Relative time] 1.7 {INR} Normal [facility] Comment on above: Result Comment: INR Therapeutic Range A) Pre- [...] heart valves: 3 - 4.5 PERFORMED BY: [place] [address] PATHOLOGIST [employer] MARISELA OCAMPO M.D. Performed By: #### B MP, PT, SCAN CBC #### [address] PT Coag (PPP) [Time] 19.1 s High 9.0-12.9 [facility] Comment on above: Result Comment: A he matocrit value greater than 55% may lead to inaccurate results in coagulation testing. Patients having hematocrit values >55% require a special collection tube for coagulation studies. Please contact the laboratory at [phone] for redraw instructions. Performed By: #### B MP, PT, SCAN CBC #### [address] Troponin I High Sensitivityo n 08-08-2024 Troponin I High Sensitivity 15.8 pg/mL High 0.0-15.0 [facility] Comment on above: Result Comment: PERF ORMED BY: [place] [address] PATHOLOGIST [employer] MARISELA OCAMPO M.D. Performed By: #### B MP, PT, SCAN CBC #### [address] Troponin I High Sensitivity 15.1 pg/mL High 0.0-15.0 [facility] Comment on above: Result Comment: PERF ORMED BY: [place] [address] PATHOLOGIST [employer] MARISELA OCAMPO M.D. Performed By: #### D IFF CBC, HS TROP, MG, BMP #### [address] Troponin I High Sensitivity 13.8 pg/mL Normal 0.0-15.0 [facility] Comment on above: Result Comment: PERF ORMED BY: [place] [address] PATHOLOGIST [employer] W[employer] MARISELA OCAMPO M.D. Performed By: #### B MP, PT, SCAN CBC #### [address] B-Type Natriuretic Peptideon 08-07-2024 Natriuretic peptide B (Bld) [Mass/Vol] 221.0 pg/mL High 5-100 [facility] Comment on above: Result Comment: PERF ORMED BY: [place] [address] PATHOLOGIST [employer] W[employer] MARISELA COAMPO M.D. Performed By: #### D IFF CBC, HS TROP, MG, BMP #### [address] Basic Metabolic Panelon 12- Anion gap [Moles/Vol] 14.1 mmol/L Normal 6.0-15.0 [facility] Comment on above: Performed By: #### D IFF CBC, HS TROP, MG, BMP #### [place] [address] [place] Calcium [Mass/Vol] 8.8 mg/dL Normal 8.6-10.3 [facility] Comment on above: Performed By: #### D IFF CBC, HS TROP, MG, BMP #### [place] [address] [place] Chloride [Moles/Vol] 105 mmol/L Normal 98-107 [facility] Comment on above: Performed By: #### D IFF CBC, HS TROP, MG, BMP #### [address] CO2 [Moles/Vol] 21.0 mmol/L Normal 21.0-31.0 [facility] Comment on above: Performed By: #### D IFF CBC, HS TROP, MG, BMP #### [address] Creatinine [Mass/Vol] 1.33 mg/dL High 0.60-1.20 [facility] Comment on above: Performed By: #### D IFF CBC, HS TROP, MG, BMP #### [address] Creatinine Clr Calc Pharmacy 41.66 Normal [facility] Comment on above: Result Comment: PERF ORMED BY: [place] [address] PATHOLOGIST [employer] MARISELA OCAMPO M.D. Performed By: #### D IFF CBC, HS TROP, MG, BMP #### [address] Estimated GFR 47.251 mL/Min Normal [facility] Comment on above: Performed By: #### D IFF CBC, HS TROP, MG, BMP #### [address] Glucose [Mass/Vol] 97 mg/dL Normal 70-100 [facility] Comment on above: Result Comment: [place] Glucose Reference Range is dependent on time and content of last meal. Glucose of more than 200 mg/dL in a nonstressed, ambulatory subject supports the diagnosis of Diabetes Mellitus. ADA recommended reference range Performed By: #### D IFF CBC, HS TROP, MG, BMP #### [address] Potassium [Moles/Vol] 4.1 mmol/L Normal 3.5-5.1 [facility] Comment on above: Performed By: #### D IFF CBC, HS TROP, MG, BMP #### [facility] [address] [place] [address] Sodium [Moles/Vol] 136 mmol/L Normal 136-145 [facility] Comment on above: Performed By: #### D IFF CBC, HS TROP, MG, BMP #### [address] Urea nitrogen [Mass/Vol] 12 mg/dL Normal 7-25 [facility] Comment on above: Performed By: #### D IFF CBC, HS TROP, MG, BMP #### [address] Creatine Kinaseon 08-07-2024 CK [Catalytic activity/Vol] 71 U/L Normal 30-223 [facility] Comment on above: Result Comment: Hemo lysis is present at a level that could interfere with the result. Performed By: #### D IFF CBC, HS TROP, MG, BMP #### [facility] [address] [place] [address] [place] Diff and CBCon 08-07-2024 Anisocytosis Ql (Bld) Marked Normal [facility] Comment on above: Performed By: #### D IFF CBC, HS TROP, MG, BMP #### [address] Band form neutrophils/100 WBC (Bld) 4 % Normal 0-5 [facility] Comment on above: Performed By: #### D IFF CBC, HS TROP, MG, BMP #### [address] Basophils/100 WBC (Bld) 5 % High 0-2 [facility] Comment on above: Performed By: #### D IFF CBC, HS TROP, MG, BMP #### [facility] [address] [place] [address] [place] Crenated RBC Moderate Normal [facility] Comment on above: Performed By: #### D IFF CBC, HS TROP, MG, BMP #### [place] [address] [place] Eosinophils/100 WBC (Bld) 2 % Normal 1-3 [facility] Comment on above: Performed By: #### D IFF CBC, HS TROP, MG, BMP #### [address] Erythrocyte distribution width (RBC) [Ratio] 21.1 % High 11.9-15.3 [facility] Comment on above: Performed By: #### D IFF CBC, HS TROP, MG, BMP #### [address] Hematocrit (Bld) [Volume fraction] 40.6 % Normal 34.0-46.4 [facility] Comment on above: Performed By: #### D IFF CBC, HS TROP, MG, BMP #### [address] Hemoglobin (Bld) [Mass/Vol] 12.5 g/dL Normal 11.8-15.4 [facility] Comment on above: Performed By: #### D IFF CBC, HS TROP, MG, BMP #### [address] Hypochromasia Slight Normal [facility] Comment on above: Performed By: #### D IFF CBC, HS TROP, MG, BMP #### [address] Lymphocytes/100 WBC (Bld) 31 % Normal 18-42 [facility] Comment on above: Performed By: #### D IFF CBC, HS TROP, MG, BMP #### [address] MCH (RBC) [Entitic mass] 21.0 pg Low 24.7-34.3 [facility] Comment on above: Performed By: #### D IFF CBC, HS TROP, MG, BMP #### [address] MCV (RBC) [Entitic vol] 68.3 fL Low 80-100 [facility] Comment on above: Performed By: #### D IFF CBC, HS TROP, MG, BMP #### [facility] [address] [place] [address] Mean Corpuscular HGB Conc 30.7 g/dL Low 32.0-35.0 [facility] Comment on above: Performed By: #### D IFF CBC, HS TROP, MG, BMP #### [address] Metamyelocytes 1 % High 0-[address] [facility] Comment on above: Performed By: #### D IFF CBC, HS TROP, MG, BMP #### [address] Microcytosis Marked Normal [facility] Comment on above: Performed By: #### D IFF CBC, HS TROP, MG, BMP #### [address] Monocytes/100 WBC (Bld) 23.11 % High 0.00-20.00 [facility] Comment on above: Result Comment: For adults in ED, MDW > 20.0 may be associated with a higher risk of sepsis during the first 12 hrs of hospital admission Performed By: #### D IFF CBC, HS TROP, MG, BMP #### [facility] [address] [place] [address] Monocytes/100 WBC (Bld) 3 % Normal 2-11 [facility] Comment on above: Performed By: #### D IFF CBC, HS TROP, MG, BMP #### [facility] [address] [place] [address] Ovalocytes Slight Normal [facility] Comment on above: Performed By: #### D IFF CBC, HS TROP, MG, BMP #### [facility] [address] [place] [address] Platelet Estimate Normal Normal Normal [facility] Comment on above: Performed By: #### D IFF CBC, HS TROP, MG, BMP #### [facility] [address] [place] [address] Platelet mean volume (Bld) [Entitic vol] 9.6 fL Normal 6.3-10.7 [facility] Comment on above: Performed By: #### D IFF CBC, HS TROP, MG, BMP #### [address] Platelet Morphology Normal Normal Normal [facility] Comment on above: Result Comment: PERF ORMED BY: [place] [address] PATHOLOGIST [employer] MARSIELA OCAMPO M.D. Performed By: #### D IFF CBC, HS TROP, MG, BMP #### [address] Platelets (Bld) [#/Vol] 179 10*3/uL Normal 150-450 [facility] Comment on above: Performed By: #### D IFF CBC, HS TROP, MG, BMP #### [address] Poikilocytosis Moderate Normal [facility] Comment on above: Performed By: #### D IFF CBC, HS TROP, MG, BMP #### [address] Polychromasia Moderate Normal [facility] Comment on above: Performed By: #### D IFF CBC, HS TROP, MG, BMP #### [address] RBC (Bld) [#/Vol] 5.94 10*6/uL High 3.60-5.00 [facility] Comment on above: Performed By: #### D IFF CBC, HS TROP, MG, BMP #### [address] Schistocytes Slight Normal [facility] Comment on above: Performed By: #### D IFF CBC, HS TROP, MG, BMP #### [address] Segmented neutrophils/100 WBC (Bld) 54 % Normal 50-70 [facility] Comment on above: Performed By: #### D IFF CBC, HS TROP, MG, BMP #### [address] [place] [address] [place] Target Cells Slight Normal [facility] Comment on above: Performed By: #### D IFF CBC, HS TROP, MG, BMP #### [facility] [address] [place] [address] WBC (Bld) [#/Vol] 8.8 10*3/uL Normal 3.8-11.6 [facility] Comment on above: Performed By: #### D IFF CBC, HS TROP, MG, BMP #### [address] ECG 12 lead ECGon 08-07-2024 ECG 12 lead ECG [facility] Main [place] [address] [place] [address] Electrocardiograph Report Signed Patient: Essence Vincent MR#: [id number] : 1970 Acct:[id number] Age/Sex: 54 / F ADM Date: 08/07/24 Loc: ER Room: Type: [facility] ER Attending Dr: Ordering Provider: Pedro Melo DO Date of Service: 08/07/2405/23/2305 ECG/ECG 12 lead ECG: Chest Pain Copies to: Test Reason : Blood Pressure : */* mmHG Vent. Rate : 80 BPM Atrial Rate : 80 BPM P-R Int : 246 ms QRS Dur : 120 ms QT Int : 456 ms P-R-T Axes : 86 -81 123 degrees QTcB Int : 525 ms AV dual-paced rhythm Confirmed by Pedro MELO DO ([id number]) on 08/08/2024 12:13:36 AM Referred By: Electronically Signed By: Pedro MELO DO Transcribed By: MUS Signed By Pedro Melo DO 1 10/09/23 0013 Normal [facility] Prothrombin Time INRon 08-07 INR Coag (PPP) [Relative time] 1.5 {INR} Normal [facility] Comment on above: Result Comment: INR Therapeutic Range A) Pre- [...] heart valves: 3 - 4.5 PERFORMED BY: [place] [address] PATHOLOGIST [employer] WASHER MARISELA OCAMPO M.D. Performed By: #### D IFF CBC, HS TROP, MG, BMP #### [address] PT Coag (PPP) [Time] 16.8 s High 9.0-12.9 [facility] Comment on above: Result Comment: A he matocrit value greater than 55% may lead to inaccurate results in coagulation testing. Patients having hematocrit values >55% require a special collection tube for coagulation studies. Please contact the laboratory at [phone] for redraw instructions. Performed By: #### D IFF CBC, HS TROP, MG, BMP #### [address] Troponin I High Sensitivityo n 08-07-2024 Troponin I High Sensitivity 15.8 pg/mL High 0.0-15.0 [facility] Comment on above: Result Comment: PERF ORMED BY: [place] [address] PATHOLOGIST [employer] W[employer]ER MARISELA OCAMPO M.D. Performed By: #### D IFF CBC, HS TROP, MG, BMP #### [address] XR chest 2V*on 08-07-2024 XR chest 2V* [facility] [place] [address] XRay Report Signed Patient: Essence Vincent MR#: [id number] : 1970 Acct:[id number] Age/Sex: 54 / F ADM Date: 08/07/24 Loc: ER Room: Type: PRE ER Attending Dr: Copies to: Pedro Melo DO Ordering Provider: Pedro Melo DO Date of Service: 08/07/24 XR/XR chest 2V*: Chest Pain Chest 2 views CLINICAL HISTORY: Chest pain COMPARISON: Chest 03/29/2024 FINDINGS: Sternotomy wires, heart valve replacement and defibrillator device is in place. Cardiomegaly is unchanged. Lungs are clear. No free air. XR/XR chest 2V* IMPRESSION: NO ACUTE CARDIOPULMONARY ABNORMALITY. Impression dictated by: Sy Bliss Jr., D.OTarun08/07/2024 11:28 PM Dictation Location: [id number] Transcribed By: [facility] 08/07/242327 Dictated By: Sy Bliss Jr, DO 08/07/242326 Signed By: 08/07/242327 Normal [facility] Acanthocytes [Presence] in B lood by Light microscopyOrdered By: Kristyn Russell on 03-30-2024 Acanthocytes LM Ql (Bld) Slight [facility] Activated partial thrombopla stin time (aPTT) in platelet poor plasma by coagulation aOrdered By: Pedro Melo on 03-30-2024 aPTT Coag (PPP) [Time] 25.3 s 25.1-36.5 [facility] Comment on above: A hematocrit value g reater than 55% may lead to inaccurate results in coagulation testing. Patients having hematocrit values >55% require a special collection tube for coagulation studies. Please contact the laboratory at [phone] for redraw instructions. Amphetamine Screen Ql (U)Ord ered By: Pedro eMlo on 03-30-2024 Amphetamines Ql (U) Negative Negative [facility] Anisocytosis [Presence] in B lood by Light microscopyOrdered By: Kristyn Russell on 03-30-2024 Anisocytosis Ql (Bld) Marked Normal [facility] Comment on above: Performed By: #### B MP, PT, SCAN CBC #### [facility] [address] Anisocytosis [Presence] in B lood by Light microscopyOrdered By: Pedro Melo on 03-30-2024 Anisocytosis Ql (Bld) Marked Normal [facility] Comment on above: Performed By: #### D IFF CBC, HS TROP, MG, BMP #### [address] Automated basophil %Ordered By: Kristyn Russell on 03-30-2024 Basophils/100 WBC (Bld) 1.5 % Normal . [facility] Comment on above: Performed By: #### B MP, PT, SCAN CBC #### [address] Automated basophil countOrde red By: Kristyn Russell on 03-30-2024 Basophils (Bld) [#/Vol] 0.2 10*3/uL Normal 0.0-0.2 [facility] Comment on above: Performed By: #### B MP, PT, SCAN CBC #### [address] Automated blood monocyte cou ntOrdered By: Kristyn Russell on 03-30-2024 Monocytes (Bld) [#/Vol] 1.0 10*3/uL High 0.0-0.8 [facility] Comment on above: Performed By: #### B MP, PT, SCAN CBC #### [address] Automated eosinophil %Ordere d By: Kristyn Russell on 03-30-2024 Eosinophils/100 WBC (Bld) 0.6 % Normal . [facility] Comment on above: Performed By: #### B MP, PT, SCAN CBC #### [address] Automated eosinophil countOr dered By: Kristyn Russell on 03-30-2024 Eosinophils (Bld) [#/Vol] 0.1 10*3/uL Normal 0.0-0.45 [facility] Comment on above: Performed By: #### B MP, PT, SCAN CBC #### [address] Automated monocyte %Ordered By: Kristyn Russell on 03-30-2024 Monocytes/100 WBC (Bld) 8.7 % Normal . [facility] Comment on above: Performed By: #### B MP, PT, SCAN CBC #### [address] Automated neutrophil %Ordere d By: Kristyn Russell on 03-30-2024 Neutrophils/100 WBC (Bld) 74.8 % Normal . [facility] Comment on above: Performed By: #### B MP, PT, SCAN CBC #### [facility] [address] BNP ser/plasOrdered By: Isai Melo on 03-30-2024 Natriuretic peptide B (Bld) [Mass/Vol] 256.0 pg/mL High 5-100 [facility] Comment on above: Result Comment: PERF ORMED BY: [place] [address] PATHOLOGIST [employer] AND WASHER LILIANA CLAY M.D. Performed By: #### D IFF CBC, HS TROP, MG, BMP #### [address] Bacteria [Presence] in Urine by AutomatedOrdered By: Pedro Melo on 03-30-2024 Bacteria Auto Ql (U) 2+ [HPF] High None Seen [facility] Barbiturates [Presence] in U rine by Screen methodOrdered By: Pedro Melo on 03-30-2024 Barbiturates Screen Ql (U) Positive High Negative [facility] Basic Metabolic Panelon 08 Creatinine Clr Calc Pharmacy 62.62 Normal [facility] Comment on above: Performed By: #### B MP, PT, SCAN CBC #### [facility] [address] [place] [address] [place] GFR/1.73 sq M.predicted MDRD (S/P/Bld) [Vol rate/Area] mL/min/{1.73_m2} Normal [facility] Comment on above: Performed By: #### B MP, PT, SCAN CBC #### [place] [address] [place] Creatinine Clr Calc Pharmacy 58.60 Normal [facility] Comment on above: Result Comment: PERF ORMED BY: [place] [address] PATHOLOGIST D[employer] AND W[employer]ER LILIANA CLAY M.D. Performed By: #### D IFF CBC, HS TROP, MG, BMP #### [facility] [address] GFR/1.73 sq M.predicted MDRD (S/P/Bld) [Vol rate/Area] mL/min/{1.73_m2} Normal [facility] Comment on above: Performed By: #### D IFF CBC, HS TROP, MG, BMP #### [facility] [address] [place] [address] Basophils Auto (Bld) [#/Vol] Ordered By: Pedro Melo on 03-30-2024 Basophils (Bld) [#/Vol] N/A [facility] Basophils/100 WBC Auto (Bld) Ordered By: Pedro Melo on 03-30-2024 Basophils/100 WBC (Bld) N/A [facility] Basophils/100 leukocytes in Blood by Manual countOrdered By: Pedro Melo on 03-30-2024 Basophils/100 WBC (Bld) 2 % Normal 0-2 [facility] Comment on above: Performed By: #### D IFF CBC, HS TROP, MG, BMP #### [facility] [address] [place] [address] Benzodiazepines Screen Ql (U )Ordered By: Pedro Melo on 03-30-2024 Benzodiazepines Ql (U) Negative Negative [facility] Benzoylecgonine [Presence] i n Urine by Screen methodOrdered By: Pedro Melo on 03-30-2024 Benzoylecgonine Screen Ql (U) Negative Negative [facility] Bilirubin Test strip Ql (U)O rdered By: Pedro Melo on 03-30-2024 Bilirubin Ql (U) Negative Negative [facility] [place] cells [Presence] in Blo od by Light microscopyOrdered By: Kristyn Russell on 03-30-2024 Jonah cells LM Ql (Bld) Slight [facility] CT head/brain wo conon 03-30 CT head/brain wo [facility] Main [place] [address] [place] [address] CT Scan Report Signed Patient: Essence Vincent MR#: [id number] : 1970 Acct:[id number] Age/Sex: 53 / F ADM Date: 03/30/24 Loc: Room: 6D2744-5 Type: ADM INOo Attending Dr: Patrica Mcmahon [...] ABNORMALITY. Impression dictated by: Sy Bliss Jr., D.O.03/30/2024 3:32 PM Dictation Location: [place] [address] Transcribed By: [facility] 03/30/24 1532 Dictated By: Sy Bliss Jr, DO 03/30/24 1531 Signed By: 03/30/24 1532 Normal [facility] Calcium [Mass/volume] in Ser um or PlasmaOrdered By: Kristyn Russell on 03-30-2024 Calcium [Mass/Vol] 8.8 mg/dL Normal 8.6-10.3 [facility] Comment on above: Performed By: #### B MP, PT, SCAN CBC #### [address] Calcium [Mass/volume] in Ser um or PlasmaOrdered By: Pedro Melo on 03-30-2024 Calcium [Mass/Vol] 8.8 mg/dL Normal 8.6-10.3 [facility] Comment on above: Performed By: #### D IFF CBC, HS TROP, MG, BMP #### [facility] [address] [place] [address] [place] Cannabinoids [Presence] in U rine by Screen methodOrdered By: Pedro Melo on 03-30-2024 Cannabinoids Screen Ql (U) Positive High Negative [facility] Comment on above: These are unconfirme d results and should not be used for legal purposes. Drug Cut-Off Concentration: AMPH 1000 ng/mL ALESSANDRO 200 ng/mL RHINA 200 ng/mL COCM 300 ng/mL OP 300 ng/mL PCP 25 ng/mL THC 20 ng/mL Carbon dioxide, total [Moles /volume] in Serum or PlasmaOrdered By: Kristyn Russell on 03-30-2024 CO2 [Moles/Vol] 24.4 mmol/L Normal 21.0-31.0 [facility] Comment on above: Performed By: #### B MP, PT, SCAN CBC #### [facility] [address] [place] [address] [place] Carbon dioxide, total [Moles /volume] in Serum or PlasmaOrdered By: Pedro Melo on 03-30-2024 CO2 [Moles/Vol] 24.9 mmol/L Normal 21.0-31.0 [facility] Comment on above: Performed By: #### D IFF CBC, HS TROP, MG, BMP #### [facility] [address] [place] [address] [place] Chloride [Moles/volume] in S daisy or PlasmaOrdered By: Kristyn Russell on 03-30-2024 Chloride [Moles/Vol] 103 mmol/L Normal 98-107 [facility] Comment on above: Performed By: #### B MP, PT, SCAN CBC #### [facility] [address] [place] [address] [place] Chloride [Moles/volume] in S daisy or PlasmaOrdered By: Pedro Melo on 03-30-2024 Chloride [Moles/Vol] 103 mmol/L Normal 98-107 [facility] Comment on above: Performed By: #### D IFF CBC, HS TROP, MG, BMP #### [facility] [address] [place] [address] [place] Cholesterol [Mass/volume] in Serum or PlasmaOrdered By: Kristyn Russell on 03-30-2024 Cholesterol [Mass/Vol] 89 mg/dL Low 140-200 [facility] Comment on above: Chol less than 200 m g/dl low riskChol 201-239 mg/dl borderline riskChol 240 mg/dl and greater high risk Result Comment: Chol less than 200 mg/dl low risk Chol 201-239 mg/dl borderline risk Chol 240 mg/dl and greater high risk Performed By: #### B MP, PT, SCAN CBC #### [facility] [address] [place] [address] [place] Cholesterol in LDL Calc [Mas s/Vol]Ordered By: Kristyn Russell on 03-30-2024 Cholesterol in LDL [Mass/Vol] 38 mg/dL 0-100 [facility] Comment on above: LDL ATP III CLASSIFI CATIONLDL less than 100 mg/dL OptimalLDL 100-129 mg/dL Near or above optimalLDL 130-159 mg/dL Borderline highLDL 160-189 mg/dL HighLDL greater than 189 mg/dL Very high Cholesterol in VLDL Calc [Ma ss/Vol]Ordered By: Kristyn Russell on 03-30-2024 Cholesterol in VLDL [Mass/Vol] 11 mg/dL [facility] Color of Urine by AutoOrdere d By: Pedro Melo on 03-30-2024 Color (U) Light-yellow Normal Yellow [facility] Comment on above: Order Comment: Name Collection Type:: Clean-Voided Midstream Performed By: #### B MP, PT, SCAN CBC #### [facility] [address] [place] [address] [place] Creatine kinase [Enzymatic a ctivity/volume] in Serum or PlasmaOrdered By: Pedro Melo on 03-30-2024 CK [Catalytic activity/Vol] 93 U/L Normal 30-223 [facility] Comment on above: Performed By: #### D IFF CBC, HS TROP, MG, BMP #### [facility] [address] [place] [address] [place] Creatinine [Mass/volume] in Serum or PlasmaOrdered By: Kristyn Russell on 03-30-2024 Creatinine [Mass/Vol] 0.99 mg/dL Normal 0.60-1.20 [facility] Comment on above: Performed By: #### B MP, PT, SCAN CBC #### [facility] [address] Creatinine [Mass/volume] in Serum or PlasmaOrdered By: Pedro Melo on 03-30-2024 Creatinine [Mass/Vol] 1.06 mg/dL Normal 0.60-1.20 [facility] Comment on above: Performed By: #### D IFF CBC, HS TROP, MG, BMP #### [facility] [address] Diff and CBCon 03-30-2024 Giant Platelet Tally 5 /100{WBC} Normal [facility] Comment on above: Performed By: #### D IFF CBC, HS TROP, MG, BMP #### [address] Hypochromasia Marked Normal [facility] Comment on above: Performed By: #### D IFF CBC, HS TROP, MG, BMP #### [address] Mean Corpuscular HGB Conc 29.8 g/dL Low 32.0-35.0 [facility] Comment on above: Performed By: #### D IFF CBC, HS TROP, MG, BMP #### [facility] [address] [place] [address] Microcytosis Marked Normal [facility] Comment on above: Performed By: #### D IFF CBC, HS TROP, MG, BMP #### [facility] [address] [place] [address] Monocytes/100 WBC (Bld) 16.64 % Normal 0.00-20.00 [facility] Comment on above: Performed By: #### D IFF CBC, HS TROP, MG, BMP #### [facility] [address] [place] [address] Myelocytes 1 % High 0-0 [facility] Comment on above: Performed By: #### D IFF CBC, HS TROP, MG, BMP #### [address] Ovalocytes Slight Normal [facility] Comment on above: Performed By: #### D IFF CBC, HS TROP, MG, BMP #### [address] Platelet Estimate Normal Normal Normal [facility] Comment on above: Performed By: #### D IFF CBC, HS TROP, MG, BMP #### [address] Platelet Morphology Normal Normal Normal [facility] Comment on above: Result Comment: PERF ORMED BY: [place] [address] PATHOLOGIST [employer] WASH[employer] LILIANA CLAY M.D. Performed By: #### D IFF CBC, HS TROP, MG, BMP #### [address] Poikilocytosis Moderate Normal [facility] Comment on above: Performed By: #### D IFF CBC, HS TROP, MG, BMP #### [address] Polychromasia Slight Normal [facility] Comment on above: Performed By: #### D IFF CBC, HS TROP, MG, BMP #### [address] Schistocytes Slight Normal [facility] Comment on above: Performed By: #### D IFF CBC, HS TROP, MG, BMP #### [address] Sickle Cells Slight High None Seen [facility] Comment on above: Performed By: #### D IFF CBC, HS TROP, MG, BMP #### [address] Target Cells Slight Normal [facility] Comment on above: Performed By: #### D IFF CBC, HS TROP, MG, BMP #### [address] Tear Drop Cells Slight Normal [facility] Comment on above: Performed By: #### D IFF CBC, HS TROP, MG, BMP #### [facility] [address] [place] [address] Dipstick and Microscopicon 0 03-30-2024 Bacteria,Urine 2+ High None Seen [facility] Comment on above: Order Comment: Name Collection Type:: Clean-Voided Midstream Performed By: #### B MP, PT, SCAN CBC #### [place] [address] [place] Hyaline Casts,Urine 9-19 High 0-8 [facility] Comment on above: Order Comment: Name Collection Type:: Clean-Voided Midstream Performed By: #### B MP, PT, SCAN CBC #### [address] Mucus,Urine Rare Normal [facility] Comment on above: Order Comment: Name Collection Type:: Clean-Voided Midstream Result Comment: PERF ORMED BY: [place] [address] PATHOLOGIST [employer] LILIANA CLAY M.D. Performed By: #### B MP, PT, SCAN CBC #### [address] RBC,Urine 1-2 Normal 0-4 [facility] Comment on above: Order Comment: Name Collection Type:: Clean-Voided Midstream Performed By: #### B MP, PT, SCAN CBC #### [place] [address] [place] Squamous Epithelial Cell,Urine 10-19 High 0-2 [facility] Comment on above: Order Comment: Name Collection Type:: Clean-Voided Midstream Performed By: #### B MP, PT, SCAN CBC #### [place] [address] [place] WBC,Urine 10-19 High 0-4 [facility] Comment on above: Order Comment: Name Collection Type:: Clean-Voided Midstream Performed By: #### B MP, PT, SCAN CBC #### [address] Drug Screen,Urineon 03-30-20 24 Amphetamine Screen,Urine Negative Normal Negative [facility] Comment on above: Performed By: #### B MP, PT, SCAN CBC #### [address] Barbiturate Screen,Urine Positive High Negative [facility] Comment on above: Performed By: #### B MP, PT, SCAN CBC #### [address] Benzodiazepines Screen,Urine Negative Normal Negative [facility] Comment on above: Performed By: #### B MP, PT, SCAN CBC #### [address] Cannabinoid Screen,Urine Positive High Negative [facility] Comment on above: Result Comment: Thes e are unconfirmed results and should not be used for legal purposes. Drug Cut-Off Concentration: AMPH 1000 ng/mL ALESSANDRO 200 ng/mL RHINA 200 ng/mL COCM 300 ng/mL OP 300 ng/mL PCP 25 ng/mL THC 20 ng/mL PERFORMED BY: [place] [address] PATHOLOGIST [employer] LILIANA CLAY M.D. Performed By: #### B MP, PT, SCAN CBC #### [address] Cocaine Screen,Urine Negative Normal Negative [facility] Comment on above: Performed By: #### B MP, PT, SCAN CBC #### [place] [address] [place] Opiate Screen,Urine Negative Normal Negative [facility] Comment on above: Performed By: #### B MP, PT, SCAN CBC #### [address] Phencyclidine Screen,Urine Negative Normal Negative [facility] Comment on above: Performed By: #### B MP, PT, SCAN CBC #### [facility] [address] [place] [address] [facility] echo transthoracicon [facility] echo transthoracic [facility] Main [place] [address] [place] [id number] Echocardiogram Signed Patient: Essence Vincent MR#: [id number] : 1970 Acct:[id number] Age/Sex: 53 / F ADM Date: 03/30/24 Loc: Room: [address] [place] [address] Type: ADM INOo Attending Dr: Patrica Mcmahon MD Ordering Provider: Kristyn Russell APRN Date of Service: 03/30/2409/22/499 [facility] echo transthoracic: chf, chest pain Copies to: Sherly Hunt MD, [facility] Kristyn Russell APRN Ordering Physician: Kristyn Russell Height: 64 in Weight: 156 lb Performed By: MICHAEL Walton BSA: 1.8 m2 BP: 131/80 mmHg HR: 79 Reason For Study: chf, chest pain History: Atrial Thrombus, CHF, COPD, Depression, Hypotension, [place], AICD, SVT, Mitral Valve Replacement, CABG, Ablation, [...] Electronically (more content not included)... Normal [facility] Eosinophils Auto (Bld) [#/Vo l]Ordered By: Pedro Melo on 03-30-2024 Eosinophils (Bld) [#/Vol] N/A [facility] Eosinophils/100 WBC Auto (Bl d)Ordered By: Pedro Melo on 03-30-2024 Eosinophils/100 WBC (Bld) N/A [facility] Eosinophils/100 leukocytes i n Blood by Manual countOrdered By: Pedro Melo on 03-30-2024 Eosinophils/100 WBC (Bld) 2 % Normal 1-3 [facility] Comment on above: Performed By: #### D IFF CBC, HS TROP, MG, BMP #### [facility] [address] Epithelial cells.squamous [# /area] in Urine sediment by Automated countOrdered By: Pedro Melo on 03-30-2024 Epithelial cells.squamous Auto (Urine sed) [#/Area] 10-19 [HPF] High 0-2 [facility] Erythrocyte distribution wid th [Ratio] by Automated countOrdered By: Kristyn Russell on 03-30-2024 Erythrocyte distribution width (RBC) [Ratio] 20.4 % High 11.9-15.3 [facility] Comment on above: Performed By: #### B MP, PT, SCAN CBC #### [facility] [address] [place] [address] Erythrocyte distribution wid th [Ratio] by Automated countOrdered By: Pedro Melo on 03-30-2024 Erythrocyte distribution width (RBC) [Ratio] 20.5 % High 11.9-15.3 [facility] Comment on above: Performed By: #### D IFF CBC, HS TROP, MG, BMP #### [facility] [address] [place] [address] Erythrocyte sickle cell dete ctionOrdered By: Pedro Melo on 03-30-2024 Sickle cells LM Ql (Bld) Slight High None Seen [facility] Erythrocytes [#/area] in Uri ne sediment by Automated countOrdered By: Pedro Melo on 03-30-2024 RBC Auto (Urine sed) [#/Area] 1-2 [HPF] 0-4 [facility] Erythrocytes [#/volume] in B lood by Automated countOrdered By: Kristyn Russell on 03-30-2024 RBC (Bld) [#/Vol] 5.05 10*6/uL High 3.60-5.00 [facility] Comment on above: Performed By: #### B MP, PT, SCAN CBC #### [facility] [address] [place] [address] [place] Erythrocytes [#/volume] in B lood by Automated countOrdered By: Pedro Melo on 03-30-2024 RBC (Bld) [#/Vol] 5.00 10*6/uL Normal 3.60-5.00 [facility] Comment on above: Performed By: #### D IFF CBC, HS TROP, MG, BMP #### [facility] [address] [place] [address] [place] Ferritin [Mass/volume] in Se rum or PlasmaOrdered By: Kristyn Russell on 03-30-2024 Ferritin [Mass/Vol] 18.6 ng/mL Normal 11.0-306.8 [facility] Comment on above: Performed By: #### B MP, PT, SCAN CBC #### [facility] [address] [place] [address] [place] Giant platelets/100 leukocyt es [Ratio] in Blood by Manual countOrdered By: Pedro Melo on 03-30-2024 Giant platelets/100 WBC Manual cnt (Bld) [Ratio] 5 /100{WBC} [facility] Glucose [Mass/volume] in Ser um or PlasmaOrdered By: Kristyn Russell on 03-30-2024 Glucose [Mass/Vol] 83 mg/dL Normal 70-100 [facility] Comment on above: ADA recommended refe rence rangeRandom Glucose Reference Range is dependent on time and content of last meal. Glucose of more than 200 mg/dL in a nonstressed, ambulatory subject supports the diagnosis of Diabetes Mellitus. Result Comment: [place] om Glucose Reference Range is dependent on time and content of last meal. Glucose of more than 200 mg/dL in a nonstressed, ambulatory subject supports the diagnosis of Diabetes Mellitus. ADA recommended reference range Performed By: #### B MP, PT, SCAN CBC #### [facility] [address] [place] [address] [place] Glucose [Mass/volume] in Ser um or PlasmaOrdered By: Pedro Melo on 03-30-2024 Glucose [Mass/Vol] 126 mg/dL High 70-100 [facility] Comment on above: ADA recommended refe rence rangeRandom Glucose Reference Range is dependent on time and content of last meal. Glucose of more than 200 mg/dL in a nonstressed, ambulatory subject supports the diagnosis of Diabetes Mellitus. Result Comment: [place] Glucose Reference Range is dependent on time and content of last meal. Glucose of more than 200 mg/dL in a nonstressed, ambulatory subject supports the diagnosis of Diabetes Mellitus. ADA recommended reference range Performed By: #### D IFF CBC, HS TROP, MG, BMP #### [facility] [address] [place] [address] Glucose [Mass/volume] in Uri ne by Test stripOrdered By: Pedro Melo on 03-30-2024 Glucose Test strip (U) [Mass/Vol] Normal mg/dL Normal [facility] Helmet cell detectionOrdered By: Kristyn Russell on 03-30-2024 Helmet cells LM Ql (Bld) [facility] Hematocrit [Volume Fraction] of Blood by Automated countOrdered By: Kristyn Russell on 03-30-2024 Hematocrit (Bld) [Volume fraction] 31.6 % Low 34.0-46.4 [facility] Comment on above: Performed By: #### B MP, PT, SCAN CBC #### [facility] [address] [place] [address] Hematocrit [Volume Fraction] of Blood by Automated countOrdered By: Pedro Melo on 03-30-2024 Hematocrit (Bld) [Volume fraction] 31.3 % Low 34.0-46.4 [facility] Comment on above: Performed By: #### D IFF CBC, HS TROP, MG, BMP #### [facility] [address] [place] [address] Hemoglobin Test strip Ql (U) Ordered By: Pedro Melo on 03-30-2024 Hemoglobin Ql (U) Trace High Negative [facility] Hemoglobin [Mass/volume] in BloodOrdered By: Kristyn Russell on 03-30-2024 Hemoglobin (Bld) [Mass/Vol] 9.5 g/dL Low 11.8-15.4 [facility] Comment on above: Performed By: #### B MP, PT, SCAN CBC #### [facility] [address] Hemoglobin [Mass/volume] in BloodOrdered By: Pedro Melo on 03-30-2024 Hemoglobin (Bld) [Mass/Vol] 9.3 g/dL Low 11.8-15.4 [facility] Comment on above: Performed By: #### D IFF CBC, HS TROP, MG, BMP #### [facility] [address] Hyaline casts [#/area] in Ur ine sediment by Automated countOrdered By: Pedro Melo on 03-30-2024 Hyaline casts Auto (Urine sed) [#/Area] 9-19 [LPF] High 0-8 [facility] Hypochromia LM Ql (Bld)Order ed By: Kristyn Russell on 03-30-2024 Hypochromia Ql (Bld) Marked [facility] Hypochromia LM Ql (Bld)Order ed By: Pedro Melo on 03-30-2024 Hypochromia Ql (Bld) Marked [facility] INR in Platelet poor plasma by Coagulation assayOrdered By: Kristyn Russell on 03-30-2024 INR Coag (PPP) [Relative time] 1.1 {INR} Normal [facility] Comment on above: INR Therapeutic [...] heart valves: 3 - 4.5 PERFORMED BY: [place] [address] PATHOLOGIST [employer] WASHER LILIANA CLAY M.D. Performed By: #### D IFF CBC, HS TROP, MG, BMP #### [facility] [address] INR in Platelet poor plasma by Coagulation assayOrdered By: Pedro Melo on 03-30-2024 INR Coag (PPP) [Relative time] 1.1 {INR} Normal [facility] Comment on above: INR Therapeutic [...] valves: 3 - 4.5 Performed By: #### D IFF CBC, HS TROP, MG, BMP #### [facility] [address] [place] [address] Iron [Mass/volume] in Serum or PlasmaOrdered By: Kristyn Russell on 03-30-2024 Iron [Mass/Vol] 19 ug/dL Low 50-212 [facility] Comment on above: Performed By: #### B MP, PT, SCAN CBC #### [facility] [address] [place] [address] [place] Iron and TIBC Profileon % Iron Saturation 3.7 % Low 20-50 [facility] Comment on above: Performed By: #### B MP, PT, SCAN CBC #### [facility] [address] Total Iron Binding Capacity 512 ug/dL High 255-450 [facility] Comment on above: Performed By: #### B MP, PT, SCAN CBC #### [facility] [address] Iron binding capacity [Mass/ volume] in Serum or PlasmaOrdered By: Kristyn Russell on 03-30-2024 Iron binding capacity [Mass/Vol] 512 ug/dL High 255-450 [facility] Iron saturation [Mass Fracti on] in Serum or PlasmaOrdered By: Kristyn Russell on 03-30-2024 Iron saturation [Mass fraction] 3.7 % Low 20-50 [facility] Ketones [Presence] in Urine by Test stripOrdered By: Pedro Melo on 03-30-2024 Ketones Ql (U) Negative Normal Negative [facility] Comment on above: Order Comment: Name Collection Type:: Clean-Voided Midstream Performed By: #### B MP, PT, SCAN CBC #### [facility] [address] [place] [id number] [place] Siddharth 03-30-2024 L Specimen: [id number] Received: 03/30/24 Status: SOUT Req Num: [id number] Spec Type: Impression Subm Dr: Pedro Melo DO Tissues: PATHPER Procedures: PATHREVIEW Age/ Patient Sex Location Account Attending Physician Essence Vincent 53/F 3T [id number] Patrica Mcmahon MD SPEC NUM: [id number] RECD: 03/30/24 STATUS: SOUT REQ NUM: [id number] MAC: 03/30/24- SUBM DR: Pedro Melo DO ENTERED: 03/30/24 [facility] DR: SPEC TYPE: Impression DEPT: MD ENTERED BY: [id number] RECV BY: [id number] ORDERED: PATHREVIEW ORDERED: PATHREVIEW Pathologist Review Microcytic Anemia Is Noted. Differential Diagnosis Includes Iron Deficiency Vs. Alpha Or Beta Thalassemia. Correlation With Iron Studies And Hemoglobin Electrophoresis Results Is Suggested. [id number] Specimen: [id number] Received: 03/30/24 Status: YADIRA Crocker Num: [id number] Spec Type: Impression Subm Dr: Pedro Melo DO Tissues: PATHPER Procedures: PATHREVIEW Patient: Essence Vincent [id number] (Continued) Signed (signature on file) Marisela Ocampo MD 03/30/24 1505 Normal [facility] Leukocyte esterase [Presence ] in Urine by Test stripOrdered By: Pedro Melo on 03-30-2024 Leukocyte esterase Test strip Ql (U) 3+ High Negative [facility] Comment on above: Order Comment: Name Collection Type:: Clean-Voided Midstream Performed By: #### B MP, PT, SCAN CBC #### [facility] [address] [place] [id number] [facility] Leukocytes [#/area] in Urine sediment by Automated countOrdered By: Pedro Melo on 03-30-2024 WBC Auto (Urine sed) [#/Area] 10-19 [HPF] High 0-4 [facility] Leukocytes [#/volume] correc janis for nucleated erythrocytes in Blood by Automated counOrdered By: Kristyn Russell on 03-30-2024 WBC corrected for nucl RBC Auto (Bld) [#/Vol] 11.1 10*3/uL 3.8-11.6 [facility] Leukocytes [#/volume] correc janis for nucleated erythrocytes in Blood by Automated counOrdered By: Pedro Melo on 03-30-2024 WBC corrected for nucl RBC Auto (Bld) [#/Vol] 9.7 10*3/uL 3.8-11.6 [facility] Leukocytes [#/volume] in Blo od by Automated countOrdered By: Kristyn Russell on 03-30-2024 WBC (Bld) [#/Vol] 11.1 10*3/uL Normal 3.8-11.6 [facility] Comment on above: Performed By: #### B MP, PT, SCAN CBC #### [facility] [address] Leukocytes [#/volume] in Blo od by Automated countOrdered By: Pedro Melo on 03-30-2024 WBC (Bld) [#/Vol] 9.7 10*3/uL Normal 3.8-11.6 [facility] Comment on above: Performed By: #### D IFF CBC, HS TROP, MG, BMP #### [facility] [address] Lipid Panelon 03-30-2024 LDL Cholesterol,Calculated 38 mg/dL Normal 0-100 [facility] Comment on above: Result Comment: LDL ATP III CLASSIFICATION LDL less than 100 mg/dL Optimal LDL 100-129 mg/dL Near or above optimal LDL 130-159 mg/dL Borderline high LDL 160-189 mg/dL High LDL greater than 189 mg/dL Very high Performed By: #### B MP, PT, SCAN CBC #### [facility] [address] Triglyceride w/Reflex 59 mg/dL Normal 0-149 [facility] Comment on above: Result Comment: TRIG ATP III CLASSIFICATION TRIG less than 150 mg/dL Normal TRIG 150-199 mg/dL Borderline high TRIG 200-500 mg/dL High TRIG greater than 500 mg/dL Very high Standard traceable to the Center for Disease Conrtrol and Prevention (CDC) test method. Performed By: #### B MP, PT, SCAN CBC #### [facility] [address] VLDL CHOLESTEROL 11 mg/dL Normal [facility] Comment on above: Performed By: #### B MP, PT, SCAN CBC #### [address] Lymphocytes Auto (Bld) [#/Vo l]Ordered By: Pedro Melo on 03-30-2024 Lymphocytes (Bld) [#/Vol] N/A [facility] Lymphocytes [#/volume] in Bl ood by Automated countOrdered By: Kristyn Russell on 03-30-2024 Lymphocytes (Bld) [#/Vol] 1.6 10*3/uL Normal 1.00-4.8 [facility] Comment on above: Performed By: #### B MP, PT, SCAN CBC #### [place] [address] [place] Lymphocytes/100 WBC Auto (Bl d)Ordered By: Pedro Melo on 03-30-2024 Lymphocytes/100 WBC (Bld) N/A [facility] Lymphocytes/100 leukocytes i n Blood by Automated countOrdered By: Kristyn Russell on 03-30-2024 Lymphocytes/100 WBC (Bld) 14.4 % Normal . [facility] Comment on above: Performed By: #### B MP, PT, SCAN CBC #### [facility] [address] [place] [address] Lymphocytes/100 leukocytes i n Blood by Manual countOrdered By: Pedro Melo on 03-30-2024 Lymphocytes/100 WBC (Bld) 13 % Low 18-42 [facility] Comment on above: Performed By: #### D IFF CBC, HS TROP, MG, BMP #### [address] MCH [Entitic mass] by Automa janis countOrdered By: Kristyn Russell on 03-30-2024 MCH (RBC) [Entitic mass] 18.8 pg Low 24.7-34.3 [facility] Comment on above: Performed By: #### B MP, PT, SCAN CBC #### [address] MCH [Entitic mass] by Automa janis countOrdered By: Pedro Melo on 03-30-2024 MCH (RBC) [Entitic mass] 18.6 pg Low 24.7-34.3 [facility] Comment on above: Performed By: #### D IFF CBC, HS TROP, MG, BMP #### [address] MCHC Auto (RBC) [Mass/Vol]Or dered By: Kristyn Russell on 03-30-2024 MCHC (RBC) [Mass/Vol] 30.0 g/dL Low 32.0-35.0 [facility] MCHC Auto (RBC) [Mass/Vol]Or dered By: Pedro Melo on 03-30-2024 MCHC (RBC) [Mass/Vol] 29.8 g/dL Low 32.0-35.0 [facility] MCV [Entitic volume] by Auto mated countOrdered By: Kristyn Russell on 03-30-2024 MCV (RBC) [Entitic vol] 62.5 fL Low 80-100 [facility] Comment on above: Performed By: #### B MP, PT, SCAN CBC #### [facility] [address] [place] [address] MCV [Entitic volume] by Auto mated countOrdered By: Pedro Melo on 03-30-2024 MCV (RBC) [Entitic vol] 62.7 fL Low 80-100 [facility] Comment on above: Performed By: #### D IFF CBC, HS TROP, MG, BMP #### [address] Magnesium [Mass/volume] in S daisy or PlasmaOrdered By: Kristyn Russell on 03-30-2024 Magnesium [Mass/Vol] 1.8 mg/dL Low 1.9-2.7 [facility] Comment on above: Performed By: #### B MP, PT, SCAN CBC #### [facility] [address] Manual blood segmented neutr ophils/100 leukocytesOrdered By: Pedro Melo on 03-30-2024 Segmented neutrophils/100 WBC (Bld) 77 % High 50-70 [facility] Comment on above: Performed By: #### D IFF CBC, HS TROP, MG, BMP #### [facility] [address] Microcytes LM Ql (Bld)Ordere d By: Kristyn Russell on 03-30-2024 Microcytes Ql (Bld) Marked [facility] Microcytes LM Ql (Bld)Ordere d By: Pedro Melo on 03-30-2024 Microcytes Ql (Bld) Marked [facility] Monocyte distribution width [Entitic volume] in Blood by AutomatedOrdered By: Pedro Melo on 03-30-2024 Monocyte distribution width Auto (Bld) [Entitic vol] 16.64 % 0.00-20.00 [facility] Monocytes Auto (Bld) [#/Vol] Ordered By: Pedro Melo on 03-30-2024 Monocytes (Bld) [#/Vol] N/A [facility] Monocytes/100 WBC Auto (Bld) Ordered By: Pedro Melo on 03-30-2024 Monocytes/100 WBC (Bld) N/A [facility] Monocytes/100 leukocytes in Blood by Manual countOrdered By: Pedro Melo on 03-30-2024 Monocytes/100 WBC (Bld) 5 % Normal 2-11 [facility] Comment on above: Performed By: #### D IFF CBC, HS TROP, MG, BMP #### [facility] [address] Mucus [Presence] in Urine by AutomatedOrdered By: Pedro Meol on 03-30-2024 Mucus Auto Ql (U) Rare [LPF] [facility] Myelocytes/100 WBC Manual cn t (Bld)Ordered By: Pedro Melo on 03-30-2024 Myelocytes/100 WBC (Bld) 1 % High 0-0 [facility] Neutrophils Auto (Bld) [#/Vo l]Ordered By: Pedro Melo on 03-30-2024 Neutrophils (Bld) [#/Vol] N/A [facility] Neutrophils [#/volume] in Bl ood by Automated countOrdered By: Kristyn Russell on 03-30-2024 Neutrophils (Bld) [#/Vol] 8.3 10*3/uL High 1.8-7.7 [facility] Comment on above: Performed By: #### B MP, PT, SCAN CBC #### [facility] [address] Neutrophils/100 WBC Auto (Bl d)Ordered By: Pedro Melo on 03-30-2024 Neutrophils/100 WBC (Bld) N/A [facility] Nitrite Test strip Ql (U)Ord ered By: Pedro Melo on 03-30-2024 Nitrite Ql (U) Negative Negative [facility] No Panel InformationOrdered By: Kristyn Russell on 03-30-2024 Estimated GFR (CKD-EPI) > 60.0 mL/Min [facility] Creatinine Clearance (Chem 62.62 [facility] No Panel InformationOrdered By: Pedro Melo on 03-30-2024 Estimated GFR (CKD-EPI) > 60.0 mL/Min [facility] Creatinine Clearance (Chem 58.60 [facility] Slides for Pathologist Review Ordered path review [facility] Nucleated erythrocytes [Pres ence] in Blood by Automated countOrdered By: Kristyn Russell on 03-30-2024 Nucleated RBC Auto Ql (Bld) 0.0 /100{WBC} 0-0.5 [facility] Nucleated erythrocytes [Pres ence] in Blood by Automated countOrdered By: Pedro Melo on 03-30-2024 Nucleated RBC Auto Ql (Bld) N/A [facility] Opiates [Presence] in Urine by Screen methodOrdered By: Pedro Melo on 03-30-2024 Opiates Screen Ql (U) Negative Negative [facility] Ovalocyte detectionOrdered B y: Kristyn Russell on 03-30-2024 Ovalocytes LM Ql (Bld) [facility] Ovalocyte detectionOrdered B y: Pedro Melo on 03-30-2024 Ovalocytes LM Ql (Bld) Slight Fi [facility] Partial Thromboplastin Timeo n 03-30-2024 aPTT Coag (Bld) [Time] 25.3 s Normal 25.1-36.5 [facility] Comment on above: Result Comment: A he matocrit value greater than 55% may lead to inaccurate results in coagulation testing. Patients having hematocrit values >55% require a special collection tube for coagulation studies. Please contact the laboratory at [phone] for redraw instructions. PERFORMED BY: [place] [address] PATHOLOGIST [employer] WASHER LILIANA CLAY M.D. Performed By: #### D IFF CBC, HS TROP, MG, BMP #### [address] Pathologist Slide Reviewon 0 03-30-2024 Pathologist Slide Review Ordered Path Review Normal [facility] Comment on above: Result Comment: PERF ORMED BY: [place] [address] PATHOLOGIST [employer] LILIANA CLAY M.D. Performed By: #### D IFF CBC, HS TROP, MG, BMP #### [address] Phencyclidine Screen Ql (U)O rdered By: Pedro Melo on 03-30-2024 Phencyclidine Ql (U) Negative Negative [facility] Platelet adequacy [Presence] in Blood by Light microscopyOrdered By: Kristyn Russell on 03-30-2024 Platelets LM Ql (Bld) Normal Normal [facility] Platelet adequacy [Presence] in Blood by Light microscopyOrdered By: Pedro Melo on 03-30-2024 Platelets LM Ql (Bld) Normal Normal [facility] Platelet mean volume [Entiti c volume] in Blood by Automated countOrdered By: Kristyn Russell on 03-30-2024 Platelet mean volume (Bld) [Entitic vol] 9.3 fL Normal 6.3-10.7 [facility] Comment on above: Performed By: #### B MP, PT, SCAN CBC #### [facility] [address] Platelet mean volume [Entiti c volume] in Blood by Automated countOrdered By: Pedro Melo on 03-30-2024 Platelet mean volume (Bld) [Entitic vol] 8.7 fL Normal 6.3-10.7 [facility] Comment on above: Performed By: #### D IFF CBC, HS TROP, MG, BMP #### [facility] [address] [place] [address] Platelet morphology finding [Identifier] in BloodOrdered By: Kristyn Russell on 03-30-2024 Platelet morphology finding Nom (Bld) Normal Normal [facility] Platelet morphology finding [Identifier] in BloodOrdered By: Pedro Melo on 03-30-2024 Platelet morphology finding Nom (Bld) Normal Normal [facility] Platelets [#/volume] in Bloo d by Automated countOrdered By: Kristyn Russell on 03-30-2024 Platelets (Bld) [#/Vol] 247 10*3/uL Normal 150-450 [facility] Comment on above: Performed By: #### B MP, PT, SCAN CBC #### [facility] [address] [place] [address] [place] Platelets [#/volume] in Bloo d by Automated countOrdered By: Pedro Melo on 03-30-2024 Platelets (Bld) [#/Vol] 264 10*3/uL Normal 150-450 [facility] Comment on above: Performed By: #### D IFF CBC, HS TROP, MG, BMP #### [facility] [address] [place] [address] [place] Poikilocytosis [Presence] in Blood by Light microscopyOrdered By: Kristyn Russell on 03-30-2024 Poikilocytosis LM Ql (Bld) Moderate [facility] Poikilocytosis [Presence] in Blood by Light microscopyOrdered By: Pedro Melo on 03-30-2024 Poikilocytosis LM Ql (Bld) Moderate [facility] Polychromasia [Presence] in Blood by Light microscopyOrdered By: Kristyn Russell on 03-30-2024 Polychromasia LM Ql (Bld) Marked [facility] Polychromasia [Presence] in Blood by Light microscopyOrdered By: Pedro Melo on 03-30-2024 Polychromasia LM Ql (Bld) Slight [facility] Potassium [Moles/volume] in Serum or PlasmaOrdered By: Kristyn Russell on 03-30-2024 Potassium [Moles/Vol] 4.4 mmol/L Normal 3.5-5.1 [facility] Comment on above: Performed By: #### B MP, PT, SCAN CBC #### [facility] [address] Potassium [Moles/volume] in Serum or PlasmaOrdered By: Pedro Melo on 03-30-2024 Potassium [Moles/Vol] 3.3 mmol/L Low 3.5-5.1 [facility] Comment on above: Performed By: #### D IFF CBC, HS TROP, MG, BMP #### [facility] [address] Protein Test strip (U) [Mass /Vol]Ordered By: Pedro Melo on 03-30-2024 Protein (U) [Mass/Vol] Negative Negative [facility] Prothrombin time (PT)Ordered By: Kristyn Russell on 03-30-2024 PT Coag (PPP) [Time] 12.5 s Normal 9.0-12.9 [facility] Comment on above: A hematocrit value g reater than 55% may lead to inaccurate results in coagulation testing. Patients having hematocrit values >55% require a special collection tube for coagulation studies. Please contact the laboratory at [phone] for redraw instructions. Result Comment: A he matocrit value greater than 55% may lead to inaccurate results in coagulation testing. Patients having hematocrit values >55% require a special collection tube for coagulation studies. Please contact the laboratory at [phone] for redraw instructions. Performed By: #### D IFF CBC, HS TROP, MG, BMP #### [facility] [address] Prothrombin time (PT)Ordered By: Pedro Melo on 03-30-2024 PT Coag (PPP) [Time] 12.9 s Normal 9.0-12.9 [facility] Comment on above: A hematocrit value g reater than 55% may lead to inaccurate results in coagulation testing. Patients having hematocrit values >55% require a special collection tube for coagulation studies. Please contact the laboratory at [phone] for redraw instructions. Result Comment: A he matocrit value greater than 55% may lead to inaccurate results in coagulation testing. Patients having hematocrit values >55% require a special collection tube for coagulation studies. Please contact the laboratory at [phone] for redraw instructions. Performed By: #### D IFF CBC, HS TROP, MG, BMP #### [address] RBC morphologyOrdered By: Mayo Russell on 03-30-2024 RBC morphology finding Nom (Bld) N/A [facility] RBC morphologyOrdered By: William Melo on 03-30-2024 RBC morphology finding Nom (Bld) N/A [facility] Scan and CBCon 03-30-2024 Acanthocytes Slight Normal [facility] Comment on above: Performed By: #### B MP, PT, SCAN CBC #### [address] Crenated RBC Slight Normal [facility] Comment on above: Performed By: #### B MP, PT, SCAN CBC #### [address] Helmet Cells Slight Normal [facility] Comment on above: Performed By: #### B MP, PT, SCAN CBC #### [address] Hypochromasia Marked Normal [facility] Comment on above: Performed By: #### B MP, PT, SCAN CBC #### [address] Mean Corpuscular HGB Conc 30.0 g/dL Low 32.0-35.0 [facility] Comment on above: Performed By: #### B MP, PT, SCAN CBC #### [address] Microcytosis Marked Normal [facility] Comment on above: Performed By: #### B MP, PT, SCAN CBC #### [address] NRBC% 0.0 /100{WBC} Normal 0-0.5 [facility] Comment on above: Performed By: #### B MP, PT, SCAN CBC #### [address] Ovalocytes Slight Normal [facility] Comment on above: Performed By: #### B MP, PT, SCAN CBC #### [address] Platelet Estimate Normal Normal Normal [facility] Comment on above: Performed By: #### B MP, PT, SCAN CBC #### [address] Platelet Morphology Normal Normal Normal [facility] Comment on above: Result Comment: PERF ORMED BY: [place] [address] PATHOLOGIST [employer] LILIANA CLAY M.D. Performed By: #### B MP, PT, SCAN CBC #### [address] Poikilocytosis Moderate Normal [facility] Comment on above: Performed By: #### B MP, PT, SCAN CBC #### [address] Polychromasia Marked Normal [facility] Comment on above: Performed By: #### B MP, PT, SCAN CBC #### [address] Target Cells Slight Normal [facility] Comment on above: Performed By: #### B MP, PT, SCAN CBC #### [facility] [address] Schistocytes [Presence] in B lood by Light microscopyOrdered By: Pedro Melo on 03-30-2024 Schistocytes LM Ql (Bld) [facility] Serum or plasma anion gap de terminationOrdered By: Kristyn Russell on 03-30-2024 Anion gap [Moles/Vol] 13.0 mmol/L Normal 6.0-15.0 [facility] Comment on above: Performed By: #### B MP, PT, SCAN CBC #### [facility] [address] Serum or plasma anion gap de terminationOrdered By: Pedro Melo on 03-30-2024 Anion gap [Moles/Vol] 12.4 mmol/L Normal 6.0-15.0 [facility] Comment on above: Performed By: #### D IFF CBC, HS TROP, MG, BMP #### [facility] [address] [place] [address] Serum or plasma high density lipoprotein (HDL) cholesterol measurementOrdered By: Kristyn Russell on 03-30-2024 Cholesterol in HDL [Mass/Vol] 39 mg/dL Normal 23-92 [facility] Comment on above: HDL CHOL ATP-III CLA SSIFICATION Cardiovascular RiskHDL > or equal to 60 mg/dL LOWHDL < 40 mg/dL HIGH Result Comment: HDL CHOL ATP-III CLASSIFICATION Cardiovascular Risk HDL > or equal to 60 mg/dL LOW HDL < 40 mg/dL HIGH Performed By: #### B MP, PT, SCAN CBC #### [facility] [address] Serum or plasma total choles terol/high density lipoprotein (HDL) cholesterol mass ratOrdered By: Kristyn Russell on 03-30-2024 Cholesterol.total/Chol esterol in HDL [Mass ratio] 2.3 {ratio} Normal <5.0 [facility] Comment on above: Performed By: #### B MP, PT, SCAN CBC #### [facility] [address] [place] [address] [place] Sodium [Moles/volume] in Ser um or PlasmaOrdered By: Kristyn Russell on 03-30-2024 Sodium [Moles/Vol] 136 mmol/L Normal 136-145 [facility] Comment on above: Performed By: #### B MP, PT, SCAN CBC #### [facility] [address] [place] [address] [place] Sodium [Moles/volume] in Ser um or PlasmaOrdered By: Pedro Melo on 03-30-2024 Sodium [Moles/Vol] 137 mmol/L Normal 136-145 [facility] Comment on above: Performed By: #### D IFF CBC, HS TROP, MG, BMP #### [facility] [address] Specific gravity Test strip (U) [Rel density]Ordered By: Pedro Melo on 03-30-2024 Specific gravity (U) [Rel density] 1.016 1.001-1.03 0 [facility] Target cellsOrdered By: Aram Russell on 03-30-2024 Target cells LM Ql (Bld) [facility] Target cellsOrdered By: Isai Melo on 03-30-2024 Target cells LM Ql (Bld) Slight [facility] Teardrop cell detectionOrder ed By: Pedro Melo on 03-30-2024 Dacrocytes LM Ql (Bld) Slight [facility] Thyrotropin [Units/volume] i n Serum or PlasmaOrdered By: Kristyn Russell on 03-30-2024 TSH Qn 5.94 m[IU]/L High 0.45-5.33 [facility] Comment on above: Result Comment: PERF ORMED BY: [place] [address] PATHOLOGIST [employer] LILIANA CLAY M.D. Performed By: #### B MP, PT, SCAN CBC #### [facility] [address] [place] [address] [place] Transferrin [Mass/volume] in Serum or PlasmaOrdered By: Kristyn Russell on 03-30-2024 Transferrin [Mass/Vol] 366 mg/dL High 203-362 [facility] Comment on above: Performed By: #### B MP, PT, SCAN CBC #### [facility] [address] [place] [address] [place] Triglyceride [Mass/volume] i n Serum or PlasmaOrdered By: Kristyn Russell on 03-30-2024 Triglyceride [Mass/Vol] 59 mg/dL 0-149 [facility] Comment on above: TRIG ATP III CLASSIF ICATIONTRIG less than 150 mg/dL NormalTRIG 150-199 mg/dL Borderline highTRIG 200-500 mg/dL High TRIG greater than 500 mg/dL Very highStandard traceable to the Center for Disease Conrtrol and Prevention (CDC) test method. Troponin I High Sensitivityo n 03-30-2024 Troponin I High Sensitivity 15.4 pg/mL High 0.0-15.0 [facility] Comment on above: Result Comment: PERF ORMED BY: [place] [address] PATHOLOGIST [employer] WASHER LILIANA CLAY M.D. Performed By: #### B MP, PT, SCAN CBC #### [facility] [address] [place] [address] Troponin I High Sensitivity 17.5 pg/mL High 0.0-15.0 [facility] Comment on above: Result Comment: PERF ORMED BY: [place] [address] PATHOLOGIST [employer] W[employer] LILIANA CLAY M.D. Performed By: #### D IFF CBC, HS TROP, MG, BMP #### [facility] [address] [place] [address] Troponin I High Sensitivity 14.0 pg/mL Normal 0.0-15.0 [facility] Comment on above: Result Comment: PERF ORMED BY: [place] [address] PATHOLOGIST [employer] WASH[employer] LILIANA CLAY M.D. Performed By: #### D IFF CBC, HS TROP, MG, BMP #### [facility] [address] [place] [address] Troponin I.cardiac [Mass/vol ume] in Serum or Plasma by Detection limit <= 0.01 ng/Ordered By: Kendrick Jorgensen on 03-30-2024 Troponin I.cardiac DL <= 0.01 ng/mL [Mass/Vol] 15.4 pg/mL High 0.0-15.0 [facility] Troponin I.cardiac [Mass/vol ume] in Serum or Plasma by Detection limit <= 0.01 ng/Ordered By: Pedro Melo on 03-30-2024 Troponin I.cardiac DL <= 0.01 ng/mL [Mass/Vol] 14.0 pg/mL 0.0-15.0 [facility] Urea nitrogen [Mass/volume] in Serum or PlasmaOrdered By: Kristyn Russell on 03-30-2024 Urea nitrogen [Mass/Vol] 25 mg/dL Normal 03-23 [facility] Comment on above: Performed By: #### B MP, PT, SCAN CBC #### [address] Urea nitrogen [Mass/volume] in Serum or PlasmaOrdered By: Pedro Melo on 03-30-2024 Urea nitrogen [Mass/Vol] 27 mg/dL High 03-23 [facility] Comment on above: Performed By: #### D IFF CBC, HS TROP, MG, BMP #### [facility] [address] [place] [address] Urinalysison 03-30-2024 Bilirubin,Urine Negative Normal Negative [facility] Comment on above: Order Comment: Name Collection Type:: Clean-Voided Midstream Performed By: #### B MP, PT, SCAN CBC #### [facility] [address] [place] [address] Glucose Ql (U) Normal Normal Normal [facility] Comment on above: Order Comment: Name Collection Type:: Clean-Voided Midstream Performed By: #### B MP, PT, SCAN CBC #### [facility] [address] [place] [address] [place] Nitrite,Urine Negative Normal Negative [facility] Comment on above: Order Comment: Name Collection Type:: Clean-Voided Midstream Performed By: #### B MP, PT, SCAN CBC #### [address] Occult Blood,Urine Trace High Negative [facility] Comment on above: Order Comment: Name Collection Type:: Clean-Voided Midstream Result Comment: PERF ORMED BY: [place] [address] PATHOLOGIST D[employer]ER [employer] WASHER LILIANA CLAY M.D. Performed By: #### B MP, PT, SCAN CBC #### [address] Protein,Urine Negative Normal Negative [facility] Comment on above: Order Comment: Name Collection Type:: Clean-Voided Midstream Performed By: #### B MP, PT, SCAN CBC #### [address] Specificy [place],Urine 1.016 Normal 1.001-1.03 0 [facility] Comment on above: Order Comment: Name Collection Type:: Clean-Voided Midstream Performed By: #### B MP, PT, SCAN CBC #### [address] Urobilinogen,Urine Normal Normal Normal [facility] Comment on above: Order Comment: Name Collection Type:: Clean-Voided Midstream Performed By: #### B MP, PT, SCAN CBC #### [address] Urine Cultureon 03-30-2024 Bacteria identified Cx Nom (U) ORGANISM: Proteus mirabilis (O:PROMIR) [place] Count >100,000 Aerobic RAFAEL Charge (NMIC56) SUSCEPTIBILITY [...] RESISTANT TO ALL B-LACTAM DRUGS. PERFORMED BY: [place] [address] PATHOLOGIST DYER AND WASHER LILIANA CLAY M.D. Normal [facility] Comment on above: Performed By: #### B MP, PT, SCAN CBC #### [facility] [address] [place] [address] Urine appearanceOrdered By: Pedro Melo on 03-30-2024 Appearance (U) Clear Normal Clear [facility] Comment on above: Order Comment: Name Collection Type:: Clean-Voided Midstream Performed By: #### B MP, PT, SCAN CBC #### [facility] [address] [place] [address] Urobilinogen Test strip (U) [Mass/Vol]Ordered By: Pedro Melo on 03-30-2024 Urobilinogen (U) [Mass/Vol] Normal mg/dL Normal [facility] XR chest 2V*on 03-30-2024 XR chest 2V* [facility] [place] [address] [place] [address] XRay Report Signed Patient: Essence Vincent MR#: [id number] : 1970 Acct:[id number] Age/Sex: 53 / F ADM Date: 03/30/24 Loc: Room: [address] [place] [address] Type: ADM INOo Attending Dr: Patrica Mcmahon [...] Christopher Walker M.D.03/30/2024 8:11 AM Dictation Location: [place] [address] Transcribed By: [facility] 03/30/24 0811 Dictated By: Christopher Walker DO 03/30/24 0810 Signed By: 03/30/24 0811 Normal [facility] pH of Urine by Test stripOrd ered By: Pedro Melo on 03-30-2024 pH (U) 6.5 [pH] Normal 5.0-9.0 [facility] Comment on above: Order Comment: Name Collection Type:: Clean-Voided Midstream Performed By: #### B MP, PT, SCAN CBC #### [facility] [address] [place] [address] ECG 12 lead ECGon 03-29-2024 ECG 12 lead ECG [facility] [place] [address] [place] [address] Electrocardiograph Report Signed Patient: Essence Vincent MR#: [id number] : 1970 Acct:[id number] Age/Sex: 53 / F ADM Date: 03/29/24 Loc: ER Room: Type: [facility] ER Attending Dr: Ordering Provider: Pedro [...] paced beats Confirmed by Pedro MELO DO ([id number]) on 03/30/2024 1:41:19 AM Referred By: Electronically Signed By: Pedro MELO DO Transcribed By: MUS Signed By Pedro Melo DO 0 03/30/24 0141 Normal [facility] Basophils Auto (Bld) [#/Vol] on 02-17-2024 Basophils (Bld) [#/Vol] 0.2 10 3/uL High 0.0-0.1 [facility] Basophils/100 WBC Auto (Bld) on 02-17-2024 Basophils/100 WBC (Bld) 1.7 % 0.2-2.0 [facility] Eosinophils/100 WBC Auto (Bl d)on 02-17-2024 Eosinophils/100 WBC (Bld) 0.9 % 0.9-7.0 [facility] Erythrocyte distribution wid th Auto (RBC) [Ratio]on 02-17-2024 Erythrocyte distribution width (RBC) [Ratio] 21.2 % High 11.0-15.0 [facility] Estimated glomerular filtrat ion rate (GFR) non- Americanon 02-17-2024 GFR/1.73 sq M.predicted among non-blacks MDRD (S/P/Bld) [Vol rate/Area] 50 mL/min/{1.73_m2} Low >=60 [facility] Globulin Calc (S) [Mass/Vol] on 02-17-2024 Globulin (S) [Mass/Vol] 4.3 g/dL [facility] Hematocrit Auto (Bld) [Volum e fraction]on 02-17-2024 Hematocrit (Bld) [Volume fraction] 34.1 % Low 36.0-48.0 [facility] Hemoglobin [Mass/volume] in Bloodon 02-17-2024 Hemoglobin (Bld) [Mass/Vol] 9.6 g/dL Low 12.0-16.0 [facility] INR in Platelet poor plasma by Coagulation assayon 02-17-2024 INR Coag (PPP) [Relative time] 2.68 {INR} [facility] Comment on above: DESIRED INR:2.0-3.0 CONDITIONS NOT LISTED BELOW2.5-3.5 FOR PROSTHETIC HEART VALVE REPLACEMENT2.5-3.5 RECURRENT THROMBOSIS Laboratory - Chemistry and C hemistry - challengeon 02-17-2024 Albumin [Mass/Vol] 3.6 g/dL 3.4-5.0 [facility] ALP [Catalytic activity/Vol] 347 U/L High 46-116 [facility] ALT [Catalytic activity/Vol] 26 U/L 14-59 [facility] AST [Catalytic activity/Vol] 43 U/L High 15-37 [facility] Bilirubin [Mass/Vol] 0.8 mg/dL 0.2-1.0 [facility] Calcium [Mass/Vol] 8.9 mg/dL 8.5-10.1 [facility] Chloride [Moles/Vol] 100 mmol/L 98-107 [facility] CO2 [Moles/Vol] 24.8 mmol/L 21.0-32.0 [facility] Creatinine [Mass/Vol] 1.13 mg/dL High 0.55-1.02 [facility] GFR/1.73 sq M.predicted MDRD (S/P/Bld) [Vol rate/Area] mL/min/{1.73_m2} >=60 [facility] Glucose [Mass/Vol] 112 mg/dL High 74-106 [facility] Potassium [Moles/Vol] 3.6 mmol/L 3.5-5.1 [facility] Protein [Mass/Vol] 7.9 g/dL 6.4-8.2 [facility] Sodium [Moles/Vol] 134 mmol/L Low 136-145 [facility] Urea nitrogen [Mass/Vol] 21.0 mg/dL High 7.0-18.0 [facility] Urea nitrogen/Creatinine [Mass ratio] 18.6 mg/mg [facility] Laboratory - Hematology and Cell countson 02-17-2024 Immature granulocytes/100 WBC (Bld) 0.2 % 0.0-0.5 [facility] Leukocytes [#/volume] correc janis for nucleated erythrocytes in Blood by Automated counon 02-17-2024 WBC corrected for nucl RBC Auto (Bld) [#/Vol] 8.9 10 3/uL 4.0-11.0 [facility] Lymphocytes Auto (Bld) [#/Vo l]on 02-17-2024 Lymphocytes (Bld) [#/Vol] 1.8 10 3/uL 1.2-3.8 [facility] Lymphocytes/100 WBC Auto (Bl d)on 02-17-2024 Lymphocytes/100 WBC (Bld) 20.1 % Low 20.5-60.0 [facility] MCH Auto (RBC) [Entitic mass ]on 02-17-2024 MCH (RBC) [Entitic mass] 19.1 pg Low 26.7-34.0 [facility] MCHC Auto (RBC) [Mass/Vol]on 02-17-2024 MCHC (RBC) [Mass/Vol] 28.2 g/dL Low 29.9-35.2 [facility] MCV Auto (RBC) [Entitic vol] on 02-17-2024 MCV (RBC) [Entitic vol] 67.8 fL Low 81.0-99.0 [facility] Monocytes Auto (Bld) [#/Vol] on 02-17-2024 Monocytes (Bld) [#/Vol] 1.0 10 3/uL High 0.3-0.8 [facility] Monocytes/100 WBC Auto (Bld) on 02-17-2024 Monocytes/100 WBC (Bld) 10.9 % 1.7-12.0 [facility] Neutrophils Auto (Bld) [#/Vo l]on 02-17-2024 Neutrophils (Bld) [#/Vol] 5.9 10 3/uL 1.4-6.5 [facility] Neutrophils/100 WBC Auto (Bl d)on 02-17-2024 Neutrophils/100 WBC (Bld) 66.2 % 43.0-75.0 [facility] No Panel Informationon 02-16 Eosinophils # (Auto) 0.1 10 3/uL 0.0-0.7 [facility] Immature Granulocyte # (Auto) 0.02 10 3/uL 0.00-0.03 [facility] Troponin I High Sensitivity 24.6 pg/mL 4.0-51.3 [facility] Comment on above: CUT-OFF POINTS HAVE [...] volume (Bld) [Entitic vol] 10.5 fL 9.5-13.5 [facility] Platelets Auto (Bld) [#/Vol] on 02-17-2024 Platelets (Bld) [#/Vol] 289 10 3/uL 150-450 [facility] Prothrombin time (PT)on 01-29 PT Coag (PPP) [Time] 25.8 s High 9.0-11.6 [facility] RBC Auto (Bld) [#/Vol]on RBC (Bld) [#/Vol] 5.03 10 6/uL 4.20-5.40 [facility] Serum or plasma albumin/glob ulin mass ratioon 02-17-2024 Albumin/Globulin [Mass ratio] 0.8 {ratio} [facility] Serum or plasma anion gap de terminationon 02-17-2024 Anion gap [Moles/Vol] 12.8 mmol/L [facility] Activated partial thrombopla stin time (aPTT) in platelet poor plasma by coagulation aOrdered By: Tanner Mae on 01-24-2024 aPTT Coag (PPP) [Time] 19.2 s Low 25.1-36.5 [facility] Comment on above: A hematocrit value g reater than 55% may lead to inaccurate results in coagulation testing. Patients having hematocrit values >55% require a special collection tube for coagulation studies. Please contact the laboratory at [phone] for redraw instructions. Alanine aminotransferase [En zymatic activity/volume] in Serum or PlasmaOrdered By: Tanner Mae on 01-24-2024 ALT [Catalytic activity/Vol] 14 U/L Normal 7-52 [facility] Comment on above: Performed By: #### B MP, PT, SCAN CBC #### [place] [address] [place] Albumin [Mass/volume] in Ser um or Plasma by Bromocresol green (BCG) dye binding methoOrdered By: Tanner Mae on 01-24-2024 Albumin BCG dye [Mass/Vol] 3.6 g/dL 3.5-5.7 [facility] Alkaline phosphatase [Enzyma tic activity/volume] in Serum or PlasmaOrdered By: Tanner Mae on 01-24-2024 ALP [Catalytic activity/Vol] 200 U/L High 34-104 [facility] Comment on above: Performed By: #### B MP, PT, SCAN CBC #### [place] [address] [place] Anisocytosis [Presence] in B lood by Light microscopyOrdered By: Tanner Mae on 01-24-2024 Anisocytosis Ql (Bld) Slight Normal [facility] Comment on above: Performed By: #### B MP, PT, SCAN CBC #### [place] [address] [place] Aspartate aminotransferase [ Enzymatic activity/volume] in Serum or PlasmaOrdered By: Tanner Mae on 01-24-2024 AST [Catalytic activity/Vol] 35 U/L Normal 13-39 [facility] Comment on above: Performed By: #### B MP, PT, SCAN CBC #### [place] [address] [place] BNP ser/plasOrdered By: Brett Mae on 01-24-2024 Natriuretic peptide B (Bld) [Mass/Vol] 265.0 pg/mL High 5-100 [facility] Comment on above: Result Comment: PERF ORMED BY: [place] [address] PATHOLOGIST [employer] WASHER LILIANA CLAY M.D. Performed By: #### B MP, PT, SCAN CBC #### [address] Basophils Auto (Bld) [#/Vol] Ordered By: Tanner Mae on 01-24-2024 Basophils (Bld) [#/Vol] N/A [facility] Basophils/100 WBC Auto (Bld) Ordered By: Tanner Mae on 01-24-2024 Basophils/100 WBC (Bld) N/A [facility] Basophils/100 leukocytes in Blood by Manual countOrdered By: Tanner Mae on 01-24-2024 Basophils/100 WBC (Bld) 1 % Normal 0-2 [facility] Comment on above: Performed By: #### B MP, PT, SCAN CBC #### [address] Bilirubin.total [Mass/volume ] in Serum or PlasmaOrdered By: Tanner Mae on 01-24-2024 Bilirubin [Mass/Vol] 0.4 mg/dL Normal 0.3-1.0 [facility] Comment on above: Performed By: #### B MP, PT, SCAN CBC #### [address] [place] cells [Presence] in Blo od by Light microscopyOrdered By: Tanner Mae on 01-24-2024 [place] cells LM Ql (Bld) Slight [facility] Calcium [Mass/volume] in Ser um or PlasmaOrdered By: Tanner Mae on 01-24-2024 Calcium [Mass/Vol] 8.7 mg/dL Normal 8.6-10.3 [facility] Comment on above: Performed By: #### B MP, PT, SCAN CBC #### [address] Carbon dioxide, total [Moles /volume] in Serum or PlasmaOrdered By: Tanner Mae on 01-24-2024 CO2 [Moles/Vol] 23.7 mmol/L Normal 21.0-31.0 [facility] Comment on above: Performed By: #### B MP, PT, SCAN CBC #### [place] [address] [place] Chloride [Moles/volume] in S daisy or PlasmaOrdered By: Tanner Mae on 01-24-2024 Chloride [Moles/Vol] 109 mmol/L High 98-107 [facility] Comment on above: Performed By: #### B MP, PT, SCAN CBC #### [facility] [address] [place] [address] Comprehensive Metabolic Pane siddharth 01-24-2024 Albumin [Mass/Vol] 3.6 g/dL Normal 3.5-5.7 [facility] Comment on above: Performed By: #### B MP, PT, SCAN CBC #### [address] Creatinine Clr Calc Pharmacy 54.24 Normal [facility] Comment on above: Result Comment: PERF ORMED BY: [place] [address] PATHOLOGIST [employer] W[employer] LILIANA CLAY M.D. Performed By: #### B MP, PT, SCAN CBC #### [address] GFR/1.73 sq M.predicted MDRD (S/P/Bld) [Vol rate/Area] mL/min/{1.73_m2} Normal [facility] Comment on above: Performed By: #### B MP, PT, SCAN CBC #### [facility] [address] [place] [address] [place] Creatine Kinaseon 01-24-2024 Creatine Kinase Normal 30-223 [facility] Comment on above: Result Comment: Unac ceptable specimen due to HEMOLYSIS. Redraw reordered. Performed By: #### B MP, PT, SCAN CBC #### [address] Creatine kinase [Enzymatic a ctivity/volume] in Serum or PlasmaOrdered By: Tanner Mae on 01-24-2024 CK [Catalytic activity/Vol] 45 U/L Normal 30-223 [facility] Comment on above: Order Comment: REDRA W Result Comment: PERF ORMED BY: [place] [address] PATHOLOGIST [employer] LILIANA CLAY M.D. Performed By: #### D IFF CBC, HS TROP, MG, BMP #### [address] Creatinine [Mass/volume] in Serum or PlasmaOrdered By: Tanner Mae on 01-24-2024 Creatinine [Mass/Vol] 1.00 mg/dL Normal 0.60-1.20 [facility] Comment on above: Performed By: #### B MP, PT, SCAN CBC #### [address] Diff and CBCon 01-24-2024 Crenated RBC Slight Normal [facility] Comment on above: Performed By: #### B MP, PT, SCAN CBC #### [address] Hypochromasia Moderate Normal [facility] Comment on above: Performed By: #### B MP, PT, SCAN CBC #### [address] Macrocytosis Slight Normal [facility] Comment on above: Performed By: #### B MP, PT, SCAN CBC #### [address] Mean Corpuscular HGB Conc 30.1 g/dL Low 32.0-35.0 [facility] Comment on above: Performed By: #### B MP, PT, SCAN CBC #### [address] Microcytosis Slight Normal [facility] Comment on above: Performed By: #### B MP, PT, SCAN CBC #### [address] Monocytes/100 WBC (Bld) 18.17 % Normal 0.00-20.00 [facility] Comment on above: Performed By: #### B MP, PT, SCAN CBC #### [address] Ovalocytes Slight Normal [facility] Comment on above: Performed By: #### B MP, PT, SCAN CBC #### [address] Platelet Estimate Normal Normal Normal [facility] Comment on above: Performed By: #### B MP, PT, SCAN CBC #### [address] Platelet Morphology Normal Normal Normal [facility] Comment on above: Result Comment: PERF ORMED BY: [place] [address] PATHOLOGIST [employer] WASHER LILIANA CLAY M.D. Performed By: #### B MP, PT, SCAN CBC #### [address] Poikilocytosis Moderate Normal [facility] Comment on above: Performed By: #### B MP, PT, SCAN CBC #### [address] Polychromasia Slight Normal [facility] Comment on above: Performed By: #### B MP, PT, SCAN CBC #### [address] Stomatocytes Slight Normal [facility] Comment on above: Performed By: #### B MP, PT, SCAN CBC #### [place] [address] [place] Target Cells Slight Normal [facility] Comment on above: Performed By: #### B MP, PT, SCAN CBC #### [place] [address] [place] Tear Drop Cells Slight Normal [facility] Comment on above: Performed By: #### B MP, PT, SCAN CBC #### [address] ECG 12 lead ECGon 01-24-2024 ECG 12 lead ECG [facility] Main [place] [address] [place] [address] Electrocardiograph Report Signed Patient: Essence Vincent MR#: [id number] : 1970 Acct:[id number] Age/Sex: 53 / F ADM Date: 01/24/24 Loc: ER Room: Type: [facility] ER Attending Dr: Ordering Provider: Tanner [...] Atrial flutter Confirmed by TANNER MAE MD ([id number]) on 01/25/2024 5:26:09 AM Referred By: Electronically Signed By:TANNER MAE MD Transcribed By: MUS Signed By Tanner Mae Jr, MD 0526 Normal [facility] Eosinophils Auto (Bld) [#/Vo l]Ordered By: Tanner Mae on 01-24-2024 Eosinophils (Bld) [#/Vol] N/A [facility] Eosinophils/100 WBC Auto (Bl d)Ordered By: Tanner Mae on 01-24-2024 Eosinophils/100 WBC (Bld) N/A [facility] Eosinophils/100 leukocytes i n Blood by Manual countOrdered By: Tanner Mae on 01-24-2024 Eosinophils/100 WBC (Bld) 1 % Normal 1-3 [facility] Comment on above: Performed By: #### B MP, PT, SCAN CBC #### [facility] [address] Erythrocyte distribution wid th [Ratio] by Automated countOrdered By: Tanner Mae on 01-24-2024 Erythrocyte distribution width (RBC) [Ratio] 22.3 % High 11.9-15.3 [facility] Comment on above: Performed By: #### B MP, PT, SCAN CBC #### [address] Erythrocytes [#/volume] in B lood by Automated countOrdered By: Tanner Mae on 01-24-2024 RBC (Bld) [#/Vol] 4.94 10*6/uL Normal 3.60-5.00 [facility] Comment on above: Performed By: #### B MP, PT, SCAN CBC #### [address] Glucose [Mass/volume] in Ser um or PlasmaOrdered By: Tanner Mae on 01-24-2024 Glucose [Mass/Vol] 86 mg/dL Normal 70-100 [facility] Comment on above: ADA recommended refe rence rangeRandom Glucose Reference Range is dependent on time and content of last meal. Glucose of more than 200 mg/dL in a nonstressed, ambulatory subject supports the diagnosis of Diabetes Mellitus. Result Comment: [place] om Glucose Reference Range is dependent on time and content of last meal. Glucose of more than 200 mg/dL in a nonstressed, ambulatory subject supports the diagnosis of Diabetes Mellitus. ADA recommended reference range Performed By: #### B MP, PT, SCAN CBC #### [address] Hematocrit [Volume Fraction] of Blood by Automated countOrdered By: Tanner Mae on 01-24-2024 Hematocrit (Bld) [Volume fraction] 32.3 % Low 34.0-46.4 [facility] Comment on above: Performed By: #### B MP, PT, SCAN CBC #### [address] Hemoglobin [Mass/volume] in BloodOrdered By: Tanner Mae on 01-24-2024 Hemoglobin (Bld) [Mass/Vol] 9.7 g/dL Low 11.8-15.4 [facility] Comment on above: Performed By: #### B MP, PT, SCAN CBC #### [address] Hypochromia LM Ql (Bld)Order ed By: Tanner Mae on 01-24-2024 Hypochromia Ql (Bld) Moderate [facility] INR in Platelet poor plasma by Coagulation assayOrdered By: Tanner Mae on 01-24-2024 INR Coag (PPP) [Relative time] 1.0 {INR} Normal [facility] Comment on above: INR Therapeutic [...] 3 - 4.5 Performed By: #### B MP, PT, SCAN CBC #### [facility] [address] Leukocytes [#/volume] correc janis for nucleated erythrocytes in Blood by Automated counOrdered By: Tanner Mae on 01-24-2024 WBC corrected for nucl RBC Auto (Bld) [#/Vol] 10.2 10*3/uL 3.8-11.6 [facility] Leukocytes [#/volume] in Blo od by Automated countOrdered By: Tanner Mae on 01-24-2024 WBC (Bld) [#/Vol] 10.2 10*3/uL Normal 3.8-11.6 [facility] Comment on above: Performed By: #### B MP, PT, SCAN CBC #### [facility] [address] [place] [address] [place] Lymphocytes Auto (Bld) [#/Vo l]Ordered By: Tanner Mae on 01-24-2024 Lymphocytes (Bld) [#/Vol] N/A [facility] Lymphocytes/100 WBC Auto (Bl d)Ordered By: Tanner Mae on 01-24-2024 Lymphocytes/100 WBC (Bld) N/A [facility] Lymphocytes/100 leukocytes i n Blood by Manual countOrdered By: Tanner Mae on 01-24-2024 Lymphocytes/100 WBC (Bld) 22 % Normal 18-42 [facility] Comment on above: Performed By: #### B MP, PT, SCAN CBC #### [facility] [address] [place] [address] MCH [Entitic mass] by Automa janis countOrdered By: Tanner Mae on 01-24-2024 MCH (RBC) [Entitic mass] 19.7 pg Low 24.7-34.3 [facility] Comment on above: Performed By: #### B MP, PT, SCAN CBC #### [facility] [address] [place] [address] MCHC Auto (RBC) [Mass/Vol]Or dered By: Tanner Mae on 01-24-2024 MCHC (RBC) [Mass/Vol] 30.1 g/dL Low 32.0-35.0 [facility] MCV [Entitic volume] by Auto mated countOrdered By: Tanner Mae on 01-24-2024 MCV (RBC) [Entitic vol] 65.4 fL Low 80-100 [facility] Comment on above: Performed By: #### B MP, PT, SCAN CBC #### [facility] [address] [place] [address] Macrocytes LM Ql (Bld)Ordere d By: Tanner aMe on 01-24-2024 Macrocytes Ql (Bld) Slight [facility] Manual blood segmented neutr ophils/100 leukocytesOrdered By: Tanner Mae on 01-24-2024 Segmented neutrophils/100 WBC (Bld) 69 % Normal 50-70 [facility] Comment on above: Performed By: #### B MP, PT, SCAN CBC #### [facility] [address] [place] [address] Microcytes LM Ql (Bld)Ordere d By: Tanner Mae on 01-24-2024 Microcytes Ql (Bld) Slight [facility] Monocyte distribution width [Entitic volume] in Blood by AutomatedOrdered By: Tanner Mae on 01-24-2024 Monocyte distribution width Auto (Bld) [Entitic vol] 18.17 % 0.00-20.00 [facility] Monocytes Auto (Bld) [#/Vol] Ordered By: Tanner Mae on 01-24-2024 Monocytes (Bld) [#/Vol] N/A [facility] Monocytes/100 WBC Auto (Bld) Ordered By: Tanner Mae on 01-24-2024 Monocytes/100 WBC (Bld) N/A [facility] Monocytes/100 leukocytes in Blood by Manual countOrdered By: Tanner Mae on 01-24-2024 Monocytes/100 WBC (Bld) 8 % Normal 2-11 [facility] Comment on above: Performed By: #### B MP, PT, SCAN CBC #### [address] Neutrophils Auto (Bld) [#/Vo l]Ordered By: Tanner Mae on 01-24-2024 Neutrophils (Bld) [#/Vol] N/A [facility] Neutrophils/100 WBC Auto (Bl d)Ordered By: Tanner Mae on 01-24-2024 Neutrophils/100 WBC (Bld) N/A [facility] No Panel InformationOrdered By: Tanner Mae on 01-24-2024 Estimated GFR (CKD-EPI) > 60.0 mL/Min [facility] Creatinine Clearance (Chem 54.24 [facility] Nucleated erythrocytes [Pres ence] in Blood by Automated countOrdered By: Tanner Mae on 01-24-2024 Nucleated RBC Auto Ql (Bld) N/A [facility] Ovalocyte detectionOrdered B y: Tanner Mae on 01-24-2024 Ovalocytes LM Ql (Bld) Slight [facility] Partial Thromboplastin Timeo n 01-24-2024 aPTT Coag (Bld) [Time] 19.2 s Low 25.1-36.5 [facility] Comment on above: Result Comment: A he matocrit value greater than 55% may lead to inaccurate results in coagulation testing. Patients having hematocrit values >55% require a special collection tube for coagulation studies. Please contact the laboratory at [phone] for redraw instructions. PERFORMED BY: [facility] [address] [facility]. [place] [id number] PATHOLOGIST DYER AND WASHER LILIANA CLAY M.D. Performed By: #### B MP, PT, SCAN CBC #### [facility] [address] Platelet adequacy [Presence] in Blood by Light microscopyOrdered By: Tanner Mae on 01-24-2024 Platelets LM Ql (Bld) Normal Normal [facility] Platelet mean volume [Entiti c volume] in Blood by Automated countOrdered By: Tanner Mae on 01-24-2024 Platelet mean volume (Bld) [Entitic vol] 9.1 fL Normal 6.3-10.7 [facility] Comment on above: Performed By: #### B MP, PT, SCAN CBC #### [address] Platelet morphology finding [Identifier] in BloodOrdered By: Tanner Mae on 01-24-2024 Platelet morphology finding Nom (Bld) Normal Normal [facility] Platelets [#/volume] in Bloo d by Automated countOrdered By: Tanner Mae on 01-24-2024 Platelets (Bld) [#/Vol] 214 10*3/uL Normal 150-450 [facility] Comment on above: Performed By: #### B MP, PT, SCAN CBC #### [address] Poikilocytosis [Presence] in Blood by Light microscopyOrdered By: Tanner Mae on 01-24-2024 Poikilocytosis LM Ql (Bld) Moderate [facility] Polychromasia [Presence] in Blood by Light microscopyOrdered By: Tanner Mae on 01-24-2024 Polychromasia LM Ql (Bld) Slight [facility] Potassium [Moles/volume] in Serum or PlasmaOrdered By: Tanner Mae on 01-24-2024 Potassium [Moles/Vol] 3.5 mmol/L Normal 3.5-5.1 [facility] Comment on above: Performed By: #### B MP, PT, SCAN CBC #### [place] [address] [place] Protein [Mass/volume] in Ser um or PlasmaOrdered By: Tanner Mae on 01-24-2024 Protein [Mass/Vol] 6.6 g/dL Normal 6.4-8.9 [facility] Comment on above: Performed By: #### B MP, PT, SCAN CBC #### [address] Prothrombin time (PT)Ordered By: Tanner Mae on 01-24-2024 PT Coag (PPP) [Time] 11.8 s Normal 9.0-12.9 [facility] Comment on above: A hematocrit value g reater than 55% may lead to inaccurate results in coagulation testing. Patients having hematocrit values >55% require a special collection tube for coagulation studies. Please contact the laboratory at [phone] for redraw instructions. Result Comment: A he matocrit value greater than 55% may lead to inaccurate results in coagulation testing. Patients having hematocrit values >55% require a special collection tube for coagulation studies. Please contact the laboratory at [phone] for redraw instructions. Performed By: #### B MP, PT, SCAN CBC #### [address] RBC morphologyOrdered By: Isabella Mae on 01-24-2024 RBC morphology finding Nom (Bld) N/A [facility] Red blood cell stomatocyte d etectionOrdered By: Tanner Mae on 01-24-2024 Stomatocytes LM Ql (Bld) [facility] Serum globulin measurement b y calculation (mass/volume)Ordered By: Tanner Mae on 01-24-2024 Globulin (S) [Mass/Vol] 3.0 g/dL [facility] Comment on above: Performed By: #### B MP, PT, SCAN CBC #### [address] Serum or plasma albumin/glob ulin mass ratioOrdered By: Tanner Mae on 01-24-2024 Albumin/Globulin [Mass ratio] 1.2 {ratio} [facility] Comment on above: Performed By: #### B MP, PT, SCAN CBC #### [address] Serum or plasma anion gap de terminationOrdered By: Tanner Mae on 01-24-2024 Anion gap [Moles/Vol] 12.8 mmol/L Normal 6.0-15.0 [facility] Comment on above: Performed By: #### B MP, PT, SCAN CBC #### [address] Sodium [Moles/volume] in Ser um or PlasmaOrdered By: Tanner Mae on 01-24-2024 Sodium [Moles/Vol] 142 mmol/L Normal 136-145 [facility] Comment on above: Performed By: #### B MP, PT, SCAN CBC #### [facility] [address] [place] [address] Target cellsOrdered By: Brett Mae on 01-24-2024 Target cells LM Ql (Bld) Slight [facility] Teardrop cell detectionOrder ed By: Tanner Mae on 01-24-2024 Dacrocytes LM Ql (Bld) Slight [facility] Troponin I High Sensitivityo n 01-24-2024 Troponin I High Sensitivity 13.2 pg/mL Normal 0.0-15.0 [facility] Comment on above: Result Comment: PERF ORMED BY: [place] [address] PATHOLOGIST D[employer] AND WASHER LILIANA CLAY M.D. Performed By: #### B MP, PT, SCAN CBC #### [address] Troponin I.cardiac [Mass/vol ume] in Serum or Plasma by Detection limit <= 0.01 ng/Ordered By: Tanner Mae on 01-24-2024 Troponin I.cardiac DL <= 0.01 ng/mL [Mass/Vol] 13.2 pg/mL 0.0-15.0 [facility] Urea nitrogen [Mass/volume] in Serum or PlasmaOrdered By: Tanner Mae on 01-24-2024 Urea nitrogen [Mass/Vol] 23 mg/dL Normal 7-25 [facility] Comment on above: Performed By: #### B MP, PT, SCAN CBC #### [address] [address] [facility] XR chest 1V portableon 01-23 XR chest 1V portable [facility] [address] [place] [address] [place] [address] XRay Report Signed Patient: Essence Vincent MR#: [id number] : 1970 Acct:[id number] Age/Sex: 53 / F ADM Date: 01/24/24 Loc: ER Room: Type: [facility] ER Attending Dr: Copies to: Tanner [...] Franklin Couch M.D.01/24/2024 11:31 AM Dictation Location: [place] [address] Transcribed By: [facility] 01/24/24 1131 Dictated By: Franklin Couch II, MD 01/24/24 1130 Signed By: 01/24/24 1131 Normal [facility] BUN, POCon 01-04-2024 Urea nitrogen [Mass/Vol] 22 mg/dL Normal - [facility] Creatinine w/GFR, POCon Creatinine [Mass/Vol] 0.7 mg/dL Normal 0.51-1.19 [facility] GFR/1.73 sq M.predicted among non-blacks MDRD (S/P/Bld) [Vol rate/Area] mL/min/{1.73_m2} Normal [facility] Comment on above: Result Comment: These [...] 01-04-2024 Glucose [Mass/Vol] 84 mg/dL Normal 74-100 [facility] Hgb/Hct, POCon 01-04-2024 Hematocrit (Bld) [Volume fraction] 40 % Normal 36-46 [facility] Hemoglobin (Bld) [Mass/Vol] 13.8 g/dL Normal 12.0-16.0 [facility] PT (Whole Blood)on Intl. Normal. Ratio 1.1 Normal [facility] Comment on above: Result Comment: Therapeutic Range: Moderate Anticoagulant Intensity: INR = 2.0-3.0 High Anticoagulant Intensity: INR = 2.5-3.5 PT Coag (PPP) [Time] 13.5 s Normal 10.4-14.2 [facility] Potassium (POC)on 01-04-2024 Potassium [Moles/Vol] 3.3 mmol/L Low 3.5-4.5 [facility] Sodium (POC)on 01-04-2024 Sodium [Moles/Vol] 142 mmol/L Normal 138-146 [facility] Protime-INRon 10-12-2023 INR Coag (Bld) [Relative time] 2 {INR} [employer] [facility] Coag (PPP) [Time] 24.1 s seconds [facility] App [facility] Protime-INRon 10-11-2023 INR Coag (Bld) [Relative time] 1.8 {INR} [employer] [facility] PT Coag (PPP) [Time] 21.1 s seconds [facility] Basic Metab w/rfx MGon 10-07 GFR/1.73 sq M.predicted among non-blacks MDRD (S/P/Bld) [Vol rate/Area] mL/min/{1.73_m2} Normal >60 [facility] Comment on above: Result Comment: [...] By: #### C DP, BMPX, PT #### [facility] [address] [facility] [place] [address] Seating Upholsterer: Mike Bill, DO Potassium [Moles/Vol] 4.4 mmol/L Normal 3.7-5.3 [facility] Comment on above: Result Comment: SPEC IMEN SLIGHTLY HEMOLYZED, RESULTS MAY BE ADVERSELY AFFECTED. Performed By: #### C BIANCA BMPX, PT #### [facility] Lab [address] [facility] [place] [address] Seating Upholsterer: Mike Bill DO Anion gap [Moles/Vol] 12 mmol/L Normal 9-17 [facility] Comment on above: Performed By: #### C BIANCA BMPX, PT #### [facility] Lab [address] [facility] [place] [address] Seating Upholsterer: Mike Bill DO Calcium [Mass/Vol] 9.2 mg/dL Normal 8.6-10.4 [facility] Comment on above: Performed By: #### C BIANCA BMPX, PT #### [facility] Lab [address] [facility] [place] [address] Seating Upholsterer: Mike Bill DO Chloride [Moles/Vol] 104 mmol/L Normal 98-107 [facility] Comment on above: Performed By: #### C DP, BMPX, PT #### [facility] Lab [address] [place] [address] Seating Upholsterer: Mike Bill DO CO2 [Moles/Vol] 24 mmol/L Normal 20-31 [facility] Comment on above: Performed By: #### C DP, BMPX, PT #### [facility] Lab [facility] [place] [address] Seating Upholsterer: Mike Bill DO Creatinine [Mass/Vol] 1.0 mg/dL High 0.5-0.9 [facility] Comment on above: Performed By: #### C DP, BMPX, PT #### [facility] Lab [facility] [place] [address] Seating Upholsterer: Mike Bill DO Glucose [Mass/Vol] 96 mg/dL Normal 70-99 [facility] Comment on above: Performed By: #### C DP, BMPX, PT #### [facility] Lab [facility] [place] [address] Seating Upholsterer: Mike Bill DO Sodium [Moles/Vol] 140 mmol/L Normal 135-144 [facility] Comment on above: Performed By: #### C DP, BMPX, PT #### [facility] Lab [address] [place] [address]. [place] [address] Seating Upholsterer: Mike Bill DO Urea nitrogen [Mass/Vol] 12 mg/dL Normal 6-20 [facility] Comment on above: Performed By: #### C DP, BMPX, PT #### [facility] Lab [facility] [place] [address] Seating Upholsterer: Mike Bill DO Basic Metabolic Panel w/ Ref sam to MGon 10-07-2023 Anion gap [Moles/Vol] 12 mmol/L 9 - 17 mmol/L [facility] Calcium [Mass/Vol] 9.2 mg/dL 8.6 - 10. 4 mg/dL [facility] Chloride [Moles/Vol] 104 mmol/L 98 - 10 7 mmol/L [facility] CO2 [Moles/Vol] 24 mmol/L 20 - 31 mmol/L [facility] Creatinine [Mass/Vol] 1.0 mg/dL High 0.5 - 0.9 mg/dL [facility] GFR/1.73 sq M.predicted MDRD (S/P/Bld) [Vol rate/Area] - PINF [facility] Comment on above: These results are [...] [Mass/Vol] 96 mg/dL 70 - 99 mg/dL [facility] Interpretation and review of laboratory results Abnormal [facility] Potassium [Moles/Vol] 4.4 mmol/L 3.7 - 5.3 mmol/L [facility] Comment on above: SPECIMEN SLIGHTLY HE MOLYZED, RESULTS MAY BE ADVERSELY AFFECTED. Sodium [Moles/Vol] 140 mmol/L 135 - 144 mmol/L [facility] Urea nitrogen [Mass/Vol] 12 mg/dL 6 - 20 mg/dL [facility] CBC with Diffon 10-07-2023 Abs. Basophil 0.16 k/uL Normal 0.0-0.2 [facility] Comment on above: Performed By: #### C DEBI VALENZUELA, PT #### [facility] Lab [address] [place] [address] Seating Upholsterer: Mike Bill DO Abs.Neutrophil (Seg) 5.03 k/uL Normal 1.3-9.1 [facility] Comment on above: Performed By: #### C DEBI VALENZUELA, PT #### [facility] Lab [address] [place] [address] Seating Upholsterer: Mike Bill DO Basophils/100 WBC (Bld) 2 % Normal 0-2 [facility] Comment on above: Performed By: #### C DP, BMPX, PT #### [facility] Lab [address] [place] [facility] [place] [address] Seating Upholsterer: Mike Bill DO Eosinophils (Bld) [#/Vol] 0.08 10*3/uL Normal 0.0-0.4 [facility] Comment on above: Performed By: #### C DP, BMPX, PT #### [facility] Lab [address] [place] [address] Seating Upholsterer: Mike Bill DO Eosinophils/100 WBC (Bld) 1 % Normal 0-4 [facility] Comment on above: Performed By: #### C DP, BMPX, PT #### [facility] Lab [address] [place] [facility] [place] [address] Seating Upholsterer: Mike Bill DO Lymphocytes (Bld) [#/Vol] 1.86 10*3/uL Normal 1.0-4.8 [facility] Comment on above: Performed By: #### C DP, BMPX, PT #### [facility] Lab [facility] [place] [address] Seating Upholsterer: Mike Bill DO Lymphocytes/100 WBC (Bld) 23 % Low 24-44 [facility] Comment on above: Performed By: #### C DP, BMPX, PT #### [facility] Lab [facility] [place] [facility] [place] [address] Seating Upholsterer: Mike iBll DO Monocytes (Bld) [#/Vol] 0.97 10*3/uL Normal 0.1-1.3 [facility] Comment on above: Performed By: #### C DP, BMPX, PT #### [facility] Lab [address] [place] [address] Seating Upholsterer: Mike Bill DO Monocytes/100 WBC (Bld) 12 % High 1-7 [facility] Comment on above: Performed By: #### C DP, BMPX, PT #### [facility] Lab [facility] [place] [address] Seating Upholsterer: Mike Bill DO Morphology Jeffery (Bld) [Interp] MICROCYTOSIS PRESENT Normal [facility] Comment on above: Result Comment: HYPO CHROMIA PRESENT ANISOCYTOSIS PRESENT 1+ ACANTHOCYTES FEW ELLIPTOCYTES Performed By: #### C DP, BMPX, PT #### [facility] Lab [address] [place] [address] Seating Upholsterer: Mike Bill DO Neutrophil (Seg) 62 % Normal 36-66 [facility] Comment on above: Performed By: #### C BIANCA, BMPX, PT #### [facility] Lab [address] [place] [address] Seating Upholsterer: Mike Bill DO Erythrocyte distribution width (RBC) [Ratio] 23.8 % High 11.5-14.9 [facility] Comment on above: Performed By: #### C BIANCA, BMPX, PT #### [facility] Lab [address] [place] [address] Seating Upholsterer: Mike Bill DO Hematocrit (Bld) [Volume fraction] 33.8 % Low 36-46 [facility] Comment on above: Performed By: #### C DP, BMPX, PT #### [facility] Lab [address] [place] [address] Seating Upholsterer: Mike Bill DO Hemoglobin (Bld) [Mass/Vol] 9.6 g/dL Low 12.0-16.0 [facility] Comment on above: Performed By: #### C DP, BMPX, PT #### [facility] Lab [facility] [place] [address] Seating Upholsterer: Mike Bill DO MCH (RBC) [Entitic mass] 18.1 pg Low 26-34 [facility] Comment on above: Performed By: #### C DP, BMPX, PT #### [facility] Lab [address] [place] [address] Seating Upholsterer: Mike Bill DO MCHC (RBC) [Mass/Vol] 28.5 g/dL Low 31-37 [facility] Comment on above: Performed By: #### C DP, BMPX, PT #### [facility] Lab [address] [place] [address] Seating Upholsterer: Mike Bill DO MCV (RBC) [Entitic vol] 63.5 fL Low 80-100 [facility] Comment on above: Performed By: #### C BIANCA, BMPX, PT #### [facility] Lab [address] [place] [address] Seating Upholsterer: Mike Bill DO Platelet mean volume (Bld) [Entitic vol] 8.5 fL Normal 6.0-12.0 [facility] Comment on above: Performed By: #### C BIANCA, BMPX, PT #### [facility] Lab [address] [place] [address] Seating Upholsterer: Mike Bill DO Platelets (Bld) [#/Vol] 214 10*3/uL Normal 150-450 [facility] Comment on above: Performed By: #### C DP, BMPX, PT #### [facility] Lab [address] [place] [address] Seating Upholsterer: Mike Bill DO RBC (Bld) [#/Vol] 5.32 10*6/uL High 4.0-5.2 [facility] Comment on above: Performed By: #### C BIANCA BMPX, PT #### [facility] Lab [address] [place] [address] Seating Upholsterer: Mike Bill DO WBC (Bld) [#/Vol] 8.1 10*3/uL Normal 3.5-11.0 [facility] Comment on above: Performed By: #### C BIANCA BMPX, PT #### [facility] Lab [address] [facility] [place] [address] Seating Upholsterer: Mike Bill DO CBC with auto differentialon 10-07-2023 Basophils (Bld) [#/Vol] 0.16 10*3/uL [facility] Basophils/100 WBC (Bld) 2 % 0 - 2 % [facility] Eosinophils (Bld) [#/Vol] 0.08 10*3/uL [facility] Eosinophils/100 WBC (Bld) 1 % 0 - 4 % [facility] Erythrocyte distribution width (RBC) [Ratio] 23.8 % High 11.5 - 14.9 % [facility] Hematocrit (Bld) [Volume fraction] 33.8 % Low 36 - 46 % [facility] Hemoglobin (Bld) [Mass/Vol] 9.6 g/dL Low 12.0 - 16.0 g/dL [facility] Interpretation and review of laboratory results Abnormal [facility] Lymphocytes/100 WBC (Bld) 23 % Low 24 - 44 % [facility] Lymphocytes/100 WBC (Bld) 1.86 % [facility] MCH (RBC) [Entitic mass] 18.1 pg Low 26 - 34 pg [facility] MCHC (RBC) [Mass/Vol] 28.5 g/dL Low 31 - 3 7 g/dL [facility] MCV (RBC) [Entitic vol] 63.5 fL Low 80 - 100 fL [facility] Monocytes/100 WBC (Bld) 12 % High 1 - 7 % [employer] [facility] Monocytes/100 WBC (Bld) 0.97 % [facility] Morphology Jeffery (Bld) [Interp] MICROCYTOSIS PRESENT [facility] Morphology Jeffery (Bld) [Interp] HYPOCHROMIA PRESENT [facility] Morphology Jeffery (Bld) [Interp] ANISOCYTOSIS PRESENT [employer] [facility] Morphology Jeffery (Bld) [Interp] 1+ ACANTHOCYTES FEW ELLIPTOCYTES [facility] Neutrophils/100 WBC (Bld) 62 % 36 - 66 % [facility] SECDash [facility] Platelet mean volume (Bld) [Entitic vol] 8.5 fL 6.0 - 12.0 fL [employer] [facility] Platelets (Bld) [#/Vol] 214 10*3/uL [employer] [facility] RBC (Bld) [#/Vol] 5.32 10*6/uL High 4.0 - 5.2 m/uL [employer] [facility] Segmented neutrophils/100 WBC (Bld) 5.03 % [employer] SECDash [facility] WBC other (Bld) [#/Vol] 8.1 [employer] [facility] [employer] [facility] EKG 12 LeadOrdered By: Satish Whitman on 10-07-2023 Atrial Rate 80 BPM [employer] Work Phone: [phone] P [place] 108 degrees [facility] Work Phone: [phone] P-R Interval 268 ms [facility] Work Phone: [phone] Q-T Interval 478 ms [facility] Work Phone: [phone] QRS Duration 206 ms [facility] Work Phone: [phone] QTc Calculation (Bazett) 551 ms [facility] Work Phone: [phone] R [place] -72 degrees [facility] Work Phone: [phone] T [place] 98 degrees [facility] Work Phone: [phone] Ventricular Rate 80 BPM [facility] [employer] [facility] Work Phone: [phone] [facility] Work Phone: EKG 12 Leadon 10-07-2023 AV dual-paced rhythm with prolonged AV conduction Abnormal ECG When compared with ECG of 05-OCT-2023 19:31, (unconfirmed) No significant change was found [facility] Satish North MD - 10/07/2023 AV dual-paced rhythm with prolonged AV conduction Abnormal ECG When compared with ECG of 05-OCT-2023 19:31, (unconfirmed) No significant change was found [facility] PTon 10-07-2023 INR Coag (PPP) [Relative time] 1.1 {INR} Normal [facility] Comment on above: Result Comment: Therapeutic Range: Moderate Anticoagulant Intensity: INR = 2.0-3.0 High Anticoagulant Intensity: INR = 2.5-3.5 Performed By: #### C DP, BMPX, PT #### [facility] Lab [address] [facility] [place] [address] Seating Upholsterer: Mike Bill DO PT Coag (PPP) [Time] 14.9 s High 11.8-14.6 [facility] Comment on above: Performed By: #### C DP, BMPX, PT #### [facility] Lab [address] [facility] [place] [address] Seating Upholsterer: Mike Bill DO Protime-INRon 10-07-2023 INR Coag (PPP) [Relative time] 1.1 {INR} [facility] Comment on above: Therapeutic Range: Moderate Anticoagulant Intensity: INR = 2.0-3.0 High Anticoagulant Intensity: INR = 2.5-3.5 Interpretation and review of laboratory results Abnormal [facility] PT Coag (PPP) [Time] 14.9 s High [facility] Basic Metab w/rfx MGon 10-06 Potassium [Moles/Vol] 4.3 mmol/L Normal 3.7-5.3 [facility] Comment on above: Result Comment: SPEC IMEN MODERATELY HEMOLYZED, RESULTS MAY BE ADVERSELY AFFECTED Performed By: #### B MPX ####[facility] [id number] [place] [address] Lab Director: Mike Bill DO Anion gap [Moles/Vol] 14 mmol/L Normal 9-17 [facility] Comment on above: Performed By: #### B MPX ####[facility] [id number] [place] [address] Lab Director: Mike Bill DO Calcium [Mass/Vol] 9.0 mg/dL Normal 8.6-10.4 [facility] Comment on above: Performed By: #### B MPX ####[facility] [id number] [facility], [place] [phone] Director: Mike Bill DO Chloride [Moles/Vol] 95 mmol/L Low 98-107 [facility] Comment on above: Performed By: #### B MPX ####[facility] [id number] [facility] [place] [address] Lab Director: Mike Bill DO CO2 [Moles/Vol] 23 mmol/L Normal 20-31 [facility] Comment on above: Performed By: #### B MPX ####[facility] [id number] [facility], [place] [phone] Director: Mike Bill DO Creatinine [Mass/Vol] 1.2 mg/dL High 0.5-0.9 [facility] Comment on above: Performed By: #### B MPX ####[facility] [id number] [facility], [place] [phone] Director: Mike Bill DO GFR/1.73 sq M.predicted among non-blacks MDRD (S/P/Bld) [Vol rate/Area] 54 mL/min/{1.73_m2} Low >60 [facility] Comment on above: Result Comment: [...] tubular secretion. Performed By: #### B MPX ####[facility] [id number] [facility], [place] [phone] Director: Mike Bill DO Glucose [Mass/Vol] 97 mg/dL Normal 70-99 [facility] Comment on above: Performed By: #### B MPX ####[facility] [id number] [facility], [place] [phone] Director: Mike Bill DO Sodium [Moles/Vol] 132 mmol/L Low 135-144 [facility] Comment on above: Performed By: #### B MPX ####[facility] [id number] [facility] [place] [address] Lab Director: Mike Bill DO Urea nitrogen [Mass/Vol] 16 mg/dL Normal 6-20 [facility] Comment on above: Performed By: #### B MPX ####[facility] [id number] [facility], [place] [phone] Director: Mike Bill DO Basic Metabolic Panel w/ Ref sam to MGon 10-06-2023 Anion gap [Moles/Vol] 14 mmol/L 9 - 17 mmol/L [facility] Calcium [Mass/Vol] 9.0 mg/dL 8.6 - 10. 4 mg/dL [facility] Chloride [Moles/Vol] 95 mmol/L Low 98 - 10 7 mmol/L [facility] CO2 [Moles/Vol] 23 mmol/L 20 - 31 mmol/L [facility] Creatinine [Mass/Vol] 1.2 mg/dL High 0.5 - 0.9 mg/dL [facility] GFR/1.73 sq M.predicted MDRD (S/P/Bld) [Vol rate/Area] 54 mL/min/{1.73_m2} Low - PINF [facility] Comment on above: These results are [...] [Mass/Vol] 97 mg/dL 70 - 99 mg/dL [facility] Interpretation and review of laboratory results Abnormal [facility] Potassium [Moles/Vol] 4.3 mmol/L 3.7 - 5.3 mmol/L [facility] Comment on above: SPECIMEN MODERATELY HEMOLYZED, RESULTS MAY BE ADVERSELY AFFECTED Sodium [Moles/Vol] 132 mmol/L Low 135 - 144 mmol/L [facility] Urea nitrogen [Mass/Vol] 16 mg/dL 6 - 20 mg/dL [facility] CBC with Diffon 10-06-2023 Abs. Basophil 0.13 k/uL Normal 0.0-0.2 [facility] Comment on above: Performed By: #### C BIANCA PT, REJEC #### [facility] Lab [address] [place], [place] [id number] Seating Upholsterer: Mike Bill DO Abs.Neutrophil (Seg) 10.51 k/uL High 1.3-9.1 [facility] Comment on above: Performed By: #### C BIANCA PT, REJEC #### [facility] Lab [address] [place] [address] Seating Upholsterer: Mike Bill DO Basophils/100 WBC (Bld) 1 % Normal 0-2 [facility] Comment on above: Performed By: #### C BIANCA PT, REJEC #### [facility] Lab [address] [place] [address] Seating Upholsterer: Mike Bill DO Eosinophils (Bld) [#/Vol] 0.00 10*3/uL Normal 0.0-0.4 [facility] Comment on above: Performed By: #### C DP, PT, REJEC #### [facility] Lab [address] [facility] [place] [address] Seating Upholsterer: Mike Bill DO Eosinophils/100 WBC (Bld) 0 % Normal 0-4 [facility] Comment on above: Performed By: #### C DP, PT, REJEC #### [facility] Lab [address] [facility] [place] [address] Seating Upholsterer: Mike Bill DO Lymphocytes (Bld) [#/Vol] 1.73 10*3/uL Normal 1.0-4.8 [facility] Comment on above: Performed By: #### C DP, PT, REJEC #### [facility] Lab [facility] [place] [address] Seating Upholsterer: Mike Bill DO Lymphocytes/100 WBC (Bld) 13 % Low 24-44 [facility] Comment on above: Performed By: #### C DP, PT, REJEC #### [facility] Lab [facility] [place] [address] Seating Upholsterer: Mike Bill DO Monocytes (Bld) [#/Vol] 0.93 10*3/uL Normal 0.1-1.3 [facility] Comment on above: Performed By: #### C DP, PT, REJEC #### [facility] Lab [address] [facility] [place] [address] Seating Upholsterer: Mike Bill DO Monocytes/100 WBC (Bld) 7 % Normal 1-7 [facility] Comment on above: Performed By: #### C DP, PT, REJEC #### [facility] Lab [address] [place] [address] Seating Upholsterer: Mike Bill DO Morphology Jeffery (Bld) [Interp] ANISOCYTOSIS PRESENT Normal [facility] Comment on above: Result Comment: HYPO CHROMIA PRESENT MICROCYTOSIS PRESENT 1+ ELLIPTOCYTES 1+ ECHINOCYTES FEW SCHISTOCYTES Performed By: #### C DP, PT, REJEC #### [facility] Lab [address] [place] [address] Seating Upholsterer: Mike Bill DO Neutrophil (Seg) 79 % High 36-66 [facility] Comment on above: Performed By: #### C DP, PT, REJEC #### [facility] Lab [facility] [place] [address] Seating Upholsterer: Mike Bill DO Erythrocyte distribution width (RBC) [Ratio] 23.8 % High 11.5-14.9 [facility] Comment on above: Performed By: #### C DP, PT, REJEC #### [facility] Lab [facility] [place] [address] Seating Upholsterer: Mike Bill DO Hematocrit (Bld) [Volume fraction] 38.6 % Normal 36-46 [facility] Comment on above: Performed By: #### C DP, PT, REJEC #### [facility] Lab [facility] [place] [address] Seating Upholsterer: Mike Bill DO Hemoglobin (Bld) [Mass/Vol] 10.9 g/dL Low 12.0-16.0 [facility] Comment on above: Performed By: #### C DP, PT, REJEC #### [facility] Lab [facility] [place] [address] Seating Upholsterer: Mike Bill DO MCH (RBC) [Entitic mass] 18.1 pg Low 26-34 [facility] Comment on above: Performed By: #### C DP, PT, REJEC #### [facility] Lab [facility] [place] [address] Seating Upholsterer: Mike Bill DO MCHC (RBC) [Mass/Vol] 28.1 g/dL Low 31-37 [facility] Comment on above: Performed By: #### C DP, PT, REJEC #### [facility] Lab [address] [place] [address] Seating Upholsterer: Mike Bill DO MCV (RBC) [Entitic vol] 64.3 fL Low 80-100 [facility] Comment on above: Performed By: #### C DP, PT, REJEC #### [facility] Lab [address] [place] [address] Seating Upholsterer: Mike Bill DO Platelet mean volume (Bld) [Entitic vol] 9.2 fL Normal 6.0-12.0 [facility] Comment on above: Performed By: #### C DP, PT, REJEC #### [facility] Lab [address] [place] [address] Seating Upholsterer: Mike Bill DO Platelets (Bld) [#/Vol] 226 10*3/uL Normal 150-450 [facility] Comment on above: Performed By: #### C DP, PT, REJEC #### [facility] Lab [address] [place] [address] Seating Upholsterer: Mike Bill DO RBC (Bld) [#/Vol] 6.01 10*6/uL High 4.0-5.2 [facility] Comment on above: Performed By: #### C DP, PT, REJEC #### [facility] Lab [address] [place] [address], [place] [address] Seating Upholsterer: Mike Bill DO WBC (Bld) [#/Vol] 13.3 10*3/uL High 3.5-11.0 [facility] Comment on above: Performed By: #### C DP, PT, REJEC #### [facility] Lab [address] [facility] [place] [address] Seating Upholsterer: Mike Bill DO CBC with auto differentialon 10-06-2023 Basophils (Bld) [#/Vol] 0.13 10*3/uL [facility] Basophils/100 WBC (Bld) 1 % 0 - 2 % [facility] Eosinophils (Bld) [#/Vol] 0.00 10*3/uL [facility] Eosinophils/100 WBC (Bld) 0 % 0 - 4 % [facility] Erythrocyte distribution width (RBC) [Ratio] 23.8 % High 11.5 - 14.9 % [facility] Hematocrit (Bld) [Volume fraction] 38.6 % 36 - 46 % [facility] Hemoglobin (Bld) [Mass/Vol] 10.9 g/dL Low 12.0 - 16.0 g/dL [facility] Interpretation and review of laboratory results Abnormal [facility] Lymphocytes/100 WBC (Bld) 13 % Low 24 - 44 % [facility] Lymphocytes/100 WBC (Bld) 1.73 % [facility] MCH (RBC) [Entitic mass] 18.1 pg Low 26 - 34 pg [facility] MCHC (RBC) [Mass/Vol] 28.1 g/dL Low 31 - 3 7 g/dL [facility] MCV (RBC) [Entitic vol] 64.3 fL Low 80 - 100 fL [facility] Monocytes/100 WBC (Bld) 7 % 1 - 7 % [facility] Monocytes/100 WBC (Bld) 0.93 % [facility] Morphology Jeffery (Bld) [Interp] ANISOCYTOSIS PRESENT [facility] Morphology Jeffery (Bld) [Interp] HYPOCHROMIA PRESENT [facility] Morphology Jeffery (Bld) [Interp] MICROCYTOSIS PRESENT [facility] Morphology Jeffery (Bld) [Interp] 1+ ELLIPTOCYTES [facility] Morphology Jeffery (Bld) [Interp] 1+ ECHINOCYTES [facility] Morphology Jeffery (Bld) [Interp] FEW SCHISTOCYTES [facility] Neutrophils/100 WBC (Bld) 79 % High 36 - 66 % [facility] Platelet mean volume (Bld) [Entitic vol] 9.2 fL 6.0 - 12.0 fL [facility] Platelets (Bld) [#/Vol] 226 10*3/uL [facility] RBC (Bld) [#/Vol] 6.01 10*6/uL High 4.0 - 5.2 m/uL [facility] Segmented neutrophils/100 WBC (Bld) 10.51 % High [facility] WBC other (Bld) [#/Vol] 13.3 High [facility] CT HEAD WO CONTRASTon 2023 CT [...] Kelechi Cuevas DO 10/05/23 Final result Normal [facility] CTA HEAD NECK W CONTRASTon [...] Brittney Lawson MD 10/05/23 Final result Normal [facility] K (Potassium)on 10-06-2023 Potassium [Moles/Vol] 3.4 mmol/L Low 3.7-5.3 [facility] Comment on above: Result Comment: SPEC IMEN MODERATELY HEMOLYZED, RESULTS MAY BE ADVERSELY AFFECTED Performed By: #### K , TSHX ####[facility] [id number] [facility] [place] [address] Lab Director: Mike Bill DO PTon 10-06-2023 INR Coag (PPP) [Relative time] 1.1 {INR} Normal [facility] Comment on above: Result Comment: Therapeutic Range: Moderate Anticoagulant Intensity: INR = 2.0-3.0 High Anticoagulant Intensity: INR = 2.5-3.5 Performed By: #### C DP, PT, REJEC #### [facility] Lab [address] [facility] [place] [address] Seating Upholsterer: Mike Bill DO PT Coag (PPP) [Time] 14.7 s High 11.8-14.6 [facility] Comment on above: Performed By: #### C DP, PT, REJEC #### [facility] Lab [address] [place] [address] Seating Upholsterer: Mike Bill DO Path Review, Smearon 024 Pathologist review Pathologist comment (Bld) [Interp] ELECTRONICALLY SIGNED. ELENITA CARR M.D. [facility] Potassiumon 10-06-2023 Interpretation and review of laboratory results Abnormal [facility] Potassium [Moles/Vol] 3.4 mmol/L Low 3.7 - 5.3 mmol/L [facility] Comment on above: SPECIMEN MODERATELY HEMOLYZED, RESULTS MAY BE ADVERSELY AFFECTED [facility] Protime-INRon 10-06-2023 INR Coag (PPP) [Relative time] 1.1 {INR} [facility] Comment on above: Therapeutic Range: Moderate Anticoagulant Intensity: INR = 2.0-3.0 High Anticoagulant Intensity: INR = 2.5-3.5 Interpretation and review of laboratory results Abnormal [facility] PT Coag (PPP) [Time] 14.7 s High [facility] SURGICAL PATHOLOGY REPORTon 10-06-2023 Surgical Pathology Report [id number] [facility] Abigail Stewart [facility] ANATOMIC PATHOLOGY [address] [place] [address]. [place], [place] [address] SURGICAL PATHOLOGY CONSULTATION Patient Name: ESSENCE VINCENT MR#: [id number] Specimen #[id number] Procedures/Addenda PERIPHERAL BLOOD REPORT Date Ordered: 10/06/2023 [...] the electronic health record for CBC parameters ([id number], 10/05/2023, TIME UNKNOWN). PLATELETS: Platelets show normal morphology. LEUKOCYTES: White blood cells show normal morphology. No atypical lymphocytes. No dysplasia. There are no blasts. ERYTHROCYTES: Microcytic hypochromic anemia with moderate anisopoikilocytosis and elevated RBC count. Note: The electronic health record is reviewed. Elenita Carr M.D. Source: A: Peripheral Blood [facility] Smear to Pathologiston 10-06 Smear to Pathologist ELECTRONICALLY SIGN ED. ELENITA CARR M.D. Normal [facility] Comment on above: Performed By: #### P T, TROPI, ALCB, CDP, MG, CP, RETCT ####[facility] [id number] [place] [address] Lab Director: Mike Bill DO#### PATH ####[address] [address] Lab Director: Heladio Lawson MD Specimen Rejectionon 024 Reason for rejection Unable to perform testing: Specimen hemolyzed. Normal [facility] Comment on above: Performed By: #### C DP, PT, REJEC #### [facility] Lab [address] [place] [address] Seating Upholsterer: Mike Bill DO Source of sample .BLOOD Normal [facility] Comment on above: Performed By: #### C DP, PT, REJEC #### [facility] Lab [address] [place] [address] Seating Upholsterer: Mike Bill DO Test ordered BMPX [facility] Comment on above: Performed By: #### C DP, PT, REJEC #### [facility] Lab [address] [place] [address] Seating Upholsterer: Mike Bill DO TSH w/reflex to FT4on 2023 Thyroid Stim. Horm. 3.45 uIU/mL Normal 0.30-5.00 [facility] Comment on above: Performed By: #### K , TSHX ####[facility] [id number] [place] [address] Lab Director: Mike Bill DO TSH with Reflexon 10-06-2023 TSH Qn 3.45 m[IU]/L [facility] Troponinon 10-06-2023 Troponin, High Sens 25 ng/L High 0-14 [facility] Comment on above: Result Comment: High Sensitivity Troponin values cannot be compared with other Troponin methodologies. Performed By: #### T KSENIA ####[facility] [id number] [place] [address] [facility] Director: Mike Bill, CBC with Auto Differentialon 10-05-2023 Basophils (Bld) [#/Vol] 0.11 10*3/uL [facility] Basophils/100 WBC (Bld) 1 % 0 - 2 % [facility] Eosinophils (Bld) [#/Vol] 0.11 10*3/uL [facility] Eosinophils/100 WBC (Bld) 1 % 0 - 4 % [facility] Erythrocyte distribution width (RBC) [Ratio] 23.6 % High 11.5 - 14.9 % [facility] Hematocrit (Bld) [Volume fraction] 35.7 % Low 36 - 46 % [facility] Hemoglobin (Bld) [Mass/Vol] 10.5 g/dL Low 12.0 - 16.0 g/dL [facility] Interpretation and review of laboratory results Abnormal [facility] Lymphocytes/100 WBC (Bld) 20 % Low 24 - 44 % [facility] Lymphocytes/100 WBC (Bld) 2.16 % [facility] MCH (RBC) [Entitic mass] 18.1 pg Low 26 - 34 pg [facility] MCHC (RBC) [Mass/Vol] 29.4 g/dL Low 31 - 3 7 g/dL [facility] MCV (RBC) [Entitic vol] 61.7 fL Low 80 - 100 fL [facility] Monocytes/100 WBC (Bld) 11 % High 1 - 7 % [facility] Monocytes/100 WBC (Bld) 1.19 % [facility] Morphology Jeffery (Bld) [Interp] ANISOCYTOSIS PRESENT [facility] Morphology Jeffery (Bld) [Interp] MICROCYTOSIS PRESENT [facility] Morphology Jeffery (Bld) [Interp] HYPOCHROMIA PRESENT [facility] Morphology Jeffery (Bld) [Interp] ELLIPTOCYTES [facility] Morphology Jeffery (Bld) [Interp] ECHINOCYTES [facility] Morphology Jeffery (Bld) [Interp] STOMATOCYTES [facility] Neutrophils/100 WBC (Bld) 67 % High 36 - 66 % [facility] Platelet mean volume (Bld) [Entitic vol] 8.6 fL 6.0 - 12.0 fL [facility] Platelets (Bld) [#/Vol] 268 10*3/uL [facility] RBC (Bld) [#/Vol] 5.79 10*6/uL High 4.0 - 5.2 m/uL [facility] Segmented neutrophils/100 WBC (Bld) 7.23 % [facility] WBC other (Bld) [#/Vol] 10.8 [facility] CBC with Diffon 10-05-2023 Abs. Basophil 0.11 k/uL Normal 0.0-0.2 [facility] Comment on above: Performed By: #### P T, TROPI, ALCB, CDP, MG, CP, RETCT ####[facility] [id number] [place] [address] Lab Director: Mike Bill DO#### PATH ####[address] [address] lab Director: Heladio Lawson MD Abs.Neutrophil (Seg) 7.23 k/uL Normal 1.3-9.1 [facility] Comment on above: Performed By: #### P T, TROPI, ALCB, CDP, MG, CP, RETCT ####[facility] [address] [place] [address] Lab Director: Mike Bill DO#### PATH ####[address] [address] Lab Director: Heladio Lawson MD Basophils/100 WBC (Bld) 1 % Normal 0-2 [facility] Comment on above: Performed By: #### P T, TROPI, ALCB, CDP, MG, CP, RETCT ####[facility] [address] [place], [place] [phone] Director: Mike Bill DO#### PATH ####[address] [address] Lab Director: Heladio Lawson MD Eosinophils (Bld) [#/Vol] 0.11 10*3/uL Normal 0.0-0.4 [facility] Comment on above: Performed By: #### P T, TROPI, ALCB, CDP, MG, CP, RETCT ####[address] [address])[phone] Director: Mike Bill DO#### PATH ####[address] [address] Lab Director: Heladio Lawson MD Eosinophils/100 WBC (Bld) 1 % Normal 0-4 [facility] Comment on above: Performed By: #### P T, TROPI, ALCB, CDP, MG, CP, RETCT ####[address] [address])[phone] Director: Mike Bill DO#### PATH ####[address] [address] Lab Director: Heladio Lawson MD Lymphocytes (Bld) [#/Vol] 2.16 10*3/uL Normal 1.0-4.8 [facility] Comment on above: Performed By: #### P T, TROPI, ALCB, CDP, MG, CP, RETCT ####[facility] [address] [place], [place] [phone] Director: Mike Bill DO#### PATH ####[address] [address] Lab Director: Heladio Lawson MD Lymphocytes/100 WBC (Bld) 20 % Low 24-44 [facility] Comment on above: Performed By: #### P T, TROPI, ALCB, CDP, MG, CP, RETCT ####[facility] [address] [place], [place] [phone] Director: Mike Bill DO#### PATH ####[address] [address] Lab Director: Heladio Lawson MD Monocytes (Bld) [#/Vol] 1.19 10*3/uL Normal 0.1-1.3 [facility] Comment on above: Performed By: #### P T, TROPI, ALCB, CDP, MG, CP, RETCT ####[facility] [address] [place] [address] Lab Director: Mike Bill DO#### PATH ####[address] [address] Lab Director: Heladio Lawson MD Monocytes/100 WBC (Bld) 11 % High 1-7 [facility] Comment on above: Performed By: #### P T, TROPI, ALCB, CDP, MG, CP, RETCT ####[facility] [address]ca[address] [place] [address] Lab Director: Mike Bill DO#### PATH ####[address] [address] Lab Director: Heladio Lawson MD Morphology Jeffery (Bld) [Interp] ANISOCYTOSIS PRESENT Normal [facility] Comment on above: Result Comment: MICR OCYTOSIS PRESENT HYPOCHROMIA PRESENT ELLIPTOCYTES ECHINOCYTES STOMATOCYTES Performed By: #### P T, TROPI, ALCB, CDP, MG, CP, RETCT ####[facility] [address] [place], [place] [address])[phone] Director: Mike Bill DO#### PATH ####[address] [address] [facility] Director: Heladio Lawson MD Neutrophil (Seg) 67 % High 36-66 [facility] Comment on above: Performed By: #### P T, TROPI, ALCB, CDP, MG, CP, RETCT ####[address] [address])[phone] Director: Mike Bill DO#### PATH ####[address] [address] [facility] Director: Heladio Lawson MD Erythrocyte distribution width (RBC) [Ratio] 23.6 % High 11.5-14.9 [facility] Comment on above: Performed By: #### P T, TROPI, ALCB, CDP, MG, CP, RETCT ####[facility] [address] [place] [address] [facility] Director: Mike Bill DO#### PATH ####[address] [address] Lab Director: Heladio Lawson MD Hematocrit (Bld) [Volume fraction] 35.7 % Low 36-46 [facility] Comment on above: Performed By: #### P T, TROPI, ALCB, CDP, MG, CP, RETCT ####[facility] [address] [place], [place] [phone])[phone] Director: Mike Bill DO#### PATH ####[address] [address] Lab Director: Heladio Lawson MD Hemoglobin (Bld) [Mass/Vol] 10.5 g/dL Low 12.0-16.0 [facility] Comment on above: Performed By: #### P T, TROPI, ALCB, CDP, MG, CP, RETCT ####[facility] [address] [place] [address] [facility] Director: Mike Bill DO#### PATH ####[address] [address] [facility] Director: Heladio Lawson MD MCH (RBC) [Entitic mass] 18.1 pg Low 26-34 [facility] Comment on above: Performed By: #### P T, TROPI, ALCB, CDP, MG, CP, RETCT ####[address] [address] [facility] Director: Mike Bill DO#### PATH ####[address] [address] Lab Director: Heladio Lawson MD MCHC (RBC) [Mass/Vol] 29.4 g/dL Low 31-37 [facility] Comment on above: Performed By: #### P T, TROPI, ALCB, CDP, MG, CP, RETCT ####[facility] [address] [place] [address] [facility] Director: Mike Bill DO#### PATH ####[address] [address] Lab Director: Heladio Lawson MD MCV (RBC) [Entitic vol] 61.7 fL Low 80-100 [facility] Comment on above: Performed By: #### P T, TROPI, ALCB, CDP, MG, CP, RETCT ####[facility] [address] [place], [place] [phone])[phone] Director: Mike Bill DO#### PATH ####[address] [phone] Director: Heladio Lawson MD Platelet mean volume (Bld) [Entitic vol] 8.6 fL Normal 6.0-12.0 [facility] Comment on above: Performed By: #### P T, TROPI, ALCB, CDP, MG, CP, RETCT ####[facility] [address] [place], [place] [phone] Director: Mike Bill DO#### PATH ####[address] [phone])[phone] Director: Heladio Lawson MD Platelets (Bld) [#/Vol] 268 10*3/uL Normal 150-450 [facility] Comment on above: Performed By: #### P T, TROPI, ALCB, CDP, MG, CP, RETCT ####[facility] [address] [place], [place] [address])[phone] Director: Mike Bill DO#### PATH ####[address] [phone] Director: Heladio Lawson MD RBC (Bld) [#/Vol] 5.79 10*6/uL High 4.0-5.2 [facility] Comment on above: Performed By: #### P T, TROPI, ALCB, CDP, MG, CP, RETCT ####[facility] [id number] [place], [place] [phone] Director: Mike Bill DO#### PATH ####[address] [phone] Director: Heladio Lawson MD WBC (Bld) [#/Vol] 10.8 10*3/uL Normal 3.5-11.0 [facility] Comment on above: Performed By: #### P T, TROPI, ALCB, CDP, MG, CP, RETCT ####[facility] [address] [place] [address] Lab Director: Mike Bill DO#### PATH ####[facility] [address] [place] [address] lab Director: Heladio Lawson MD CT Head WO contraston 2023 1. Mild patchy periventricular and subcortical white matter changes. Findings are favored to represent chronic small vessel ischemic changes. If clinical concerns for acute ischemia, further assessment with MRI is recommended. 2. Otherwise, no acute findings. 3. Bifrontal distribution cortical atrophy is greater than expected for patient's age. [facility] CONSOLIDATED EXAMINATION: CT OF THE HEAD WITHOUT [...] of the visualized skull or soft tissues. [facility] Kelechi Cuevas DO - 10/05/2023 [...] is greater than expected for patient's age. [facility] Radiology Study observation (narrative) [facility] CT Head WO contrastOrdered B y: Kelechi Cuevas on 10-05-2023 [facility] Work Phone: CTA Head vessels and Neck ve ssels W contrast Noah 10-05-2023 1. No evidence of significant arterial stenosis or occlusion in the head or neck. 2. 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 3. Emphysema in the imaged lung apices. [facility] RIS CONSOLIDATED EXAMINATION: CTA OF THE [...] fluid collection. The mckeon-white differentiation is maintained. [facility] Brittney Roque MD - [...] 3. Emphysema in the imaged lung apices. [facility] Radiology Study observation (narrative) [facility] CTA Head vessels and Neck ve ssels W contrast IVOrdered By: Brittney Lawson on 10-05-2023 [facility] Work Phone: Comp Metabolic Profon 2023 Potassium [Moles/Vol] 2.2 mmol/L Critically low 3.7-5.3 [facility] Comment on above: Performed By: #### P T, TROPI, ALCB, CDP, MG, CP, RETCT ####[facility] [address] [place] [address] Lab Director: Mike Bill DO#### PATH ####[facility] [address] [place] [address] Lab Director: Heladio Lawson MD Albumin [Mass/Vol] 4.1 g/dL Normal 3.5-5.2 [facility] Comment on above: Performed By: #### P T, TROPI, ALCB, CDP, MG, CP, RETCT ####[facility] [address] [place], [place] [phone] Director: Mike Bill DO#### PATH ####[address] [phone] Director: Heladio Lawson MD Alkaline Phos 316 U/L High 35-104 [facility] Comment on above: Performed By: #### P T, TROPI, ALCB, CDP, MG, CP, RETCT ####[facility] [address] [place], [place] [address])[phone] Director: Mike Bill DO#### PATH ####[address] [address] Lab Director: Heladio Lawson MD ALT [Catalytic activity/Vol] 19 U/L Normal 5-33 [facility] Comment on above: Performed By: #### P T, TROPI, ALCB, CDP, MG, CP, RETCT ####[facility] [address] [place], [place] [phone] Director: Mike Bill DO#### PATH ####[address] [phone] Director: Heladio Lawson MD Anion gap [Moles/Vol] 19 mmol/L High 9-17 [facility] Comment on above: Performed By: #### P T, TROPI, ALCB, CDP, MG, CP, RETCT ####[facility] [address] [place], [place] [phone] Director: Mike Bill DO#### PATH ####[address] [address] Lab Director: Heladio Lawson MD AST [Catalytic activity/Vol] 55 U/L High <32 [facility] Comment on above: Performed By: #### P T, TROPI, ALCB, CDP, MG, CP, RETCT ####[facility] [address] [place] [address] [facility] Director: Mike Bill DO#### PATH ####[address] [address] Lab Director: Heladio Lawson MD Bilirubin [Mass/Vol] 0.7 mg/dL Normal 0.3-1.2 [facility] Comment on above: Performed By: #### P T, TROPI, ALCB, CDP, MG, CP, RETCT ####[facility] [address] [place] [address] [facility] Director: Mike Bill DO#### PATH ####[address] [address] Lab Director: Heladio Lawson MD Calcium [Mass/Vol] 9.7 mg/dL Normal 8.6-10.4 [facility] Comment on above: Performed By: #### P T, TROPI, ALCB, CDP, MG, CP, RETCT ####[facility] [address] [place] [address] Lab Director: Mike Bill DO#### PATH ####[address] [address] Lab Director: Heladio Lawson MD Chloride [Moles/Vol] 96 mmol/L Low 98-107 [facility] Comment on above: Performed By: #### P T, TROPI, ALCB, CDP, MG, CP, RETCT ####[facility] L[address] [facility], [place] [phone] Director: Mike Bill DO#### PATH ####[address] [phone] Director: Heladio Lawson MD CO2 [Moles/Vol] 23 mmol/L Normal 20-31 [facility] Comment on above: Performed By: #### P T, TROPI, ALCB, CDP, MG, CP, RETCT ####[facility] Y[address] [place], [place] [phone] Director: Mike Bill DO#### PATH ####[address] [address] Lab Director: Heladio Lawson MD Creatinine [Mass/Vol] 1.2 mg/dL High 0.5-0.9 [facility] Comment on above: Performed By: #### P T, TROPI, ALCB, CDP, MG, CP, RETCT ####[facility] [address] [place], [place] [phone] Director: Mike Bill DO#### PATH ####[address] [phone] Director: Heladio Lawson MD GFR/1.73 sq M.predicted among non-blacks MDRD (S/P/Bld) [Vol rate/Area] 54 mL/min/{1.73_m2} Low >60 [facility] Comment on above: Result Comment: [...] T, TROPI, ALCB, CDP, MG, CP, RETCT ####[facility] [address] [place], [place] [address])[phone] Director: Mike Bill DO#### PATH ####[address] [address] Lab Director: Heladio Lawson MD Glucose [Mass/Vol] 181 mg/dL High 70-99 [facility] Comment on above: Performed By: #### P T, TROPI, ALCB, CDP, MG, CP, RETCT ####[facility] [address] [place], [place] [address])[phone] Director: Mike Bill DO#### PATH ####[address] [address] Lab Director: Heladio Lawson MD Protein [Mass/Vol] 8.1 g/dL Normal 6.4-8.3 [facility] Comment on above: Performed By: #### P T, TROPI, ALCB, CDP, MG, CP, RETCT ####[facility] [id number] [place] [address] Lab Director: Mike Bill DO#### PATH ####[address] [address] Lab Director: Heladio Lawson MD Sodium [Moles/Vol] 138 mmol/L Normal 135-144 [facility] Comment on above: Performed By: #### P T, TROPI, ALCB, CDP, MG, CP, RETCT ####[facility] [id number] [place] [address] Lab Director: Mike Bill DO#### PATH ####[address] [address] Lab Director: Heladio Lawson MD Urea nitrogen [Mass/Vol] 17 mg/dL Normal 6-20 [facility] Comment on above: Performed By: #### P T, TROPI, ALCB, CDP, MG, CP, RETCT ####[facility] [address] [place] [address] Lab Director: Mike Bill DO#### PATH ####[facility] [id number] [place] [address] Lab Director: Heladio Lawson MD Comprehensive Metabolic Pane [facility] 10-05-2023 Albumin [Mass/Vol] 4.1 g/dL 3.5 - 5.2 g/dL [facility] ALP [Catalytic activity/Vol] 316 U/L High 35 - 104 U/L [facility] ALT [Catalytic activity/Vol] 19 U/L 5 - 33 U/L [facility] Anion gap [Moles/Vol] 19 mmol/L High 9 - 17 mmol/L [facility] AST [Catalytic activity/Vol] 55 U/L High NINF - 32 U/L [facility] Bilirubin [Mass/Vol] 0.7 mg/dL 0.3 - 1 .2 mg/dL [facility] Calcium [Mass/Vol] 9.7 mg/dL 8.6 - 10. 4 mg/dL [facility] Chloride [Moles/Vol] 96 mmol/L Low 98 - 10 7 mmol/L [facility] CO2 [Moles/Vol] 23 mmol/L 20 - 31 mmol/L [facility] Creatinine [Mass/Vol] 1.2 mg/dL High 0.5 - 0.9 mg/dL [facility] GFR/1.73 sq M.predicted MDRD (S/P/Bld) [Vol rate/Area] 54 mL/min/{1.73_m2} Low - PINF [facility] Comment on above: These results are [...] 181 mg/dL High 70 - 99 mg/dL [facility] Interpretation and review of laboratory results Abnormal [facility] Potassium [Moles/Vol] 2.2 mmol/L Critically low 3.7 - 5.3 mmol/L [facility] Protein [Mass/Vol] 8.1 g/dL 6.4 - 8.3 g/dL [facility] Sodium [Moles/Vol] 138 mmol/L 135 - 144 mmol/L [facility] Urea nitrogen [Mass/Vol] 17 mg/dL 6 - 20 mg/dL [facility] Drug Scr, Abuse, Uron 2023 Amphetamine(s),Ur Negative Normal NEG [facility] Comment on above: Result Comment: (Positive cutoff 1000 ng/mL) Performed By: #### U MICAO, UAX, INDIRA ####[facility] [address] [place] [address] Lab Director: Mike Bill DO Barbiturate(s),Ur Positive Abnormal NEG [facility] Comment on above: Result Comment: (Positive cutoff 200 ng/mL) Performed By: #### U MICAO, UAX, INDIRA ####[facility] Cyo[address] [place] [address] Lab Director: Mike Bill DO Benzodiazepine(s) Negative Normal NEG [facility] Comment on above: Result Comment: (Positive cutoff 200 ng/mL) Performed By: #### U MICAO, UAX, INDIRA ####[facility] [id number] [place] [address] Lab Director: Mike Bill DO Cannabinoid(s),Ur Positive Abnormal NEG [facility] Comment on above: Result Comment: (Positive cutoff 50 ng/mL) Performed By: #### U MICAO, UAX, INDIRA ####[facility] [id number] [facility] [place] [address] Lab Director: Mike Bill DO Cocaine Metabolite Negative Normal NEG [facility] Comment on above: Result Comment: (Positive cutoff 300 ng/mL) Performed By: #### U MICAO, UAX, INDIRA ####[facility] [id number] [facility] [place] [address] Lab Director: Mike Bill DO Fentanyl, Urine Negative Normal NEG [facility] Comment on above: Result Comment: (Positive cutoff 5 ng/ml) Performed By: #### U MICAO, UAX, INDIRA ####[facility] [id number] [place] [address].[place] [address] [facility] Director: Mike Bill DO Interpretive Info Assay provides medic al screening only. The absence of expected drug(s) and/or Normal [facility] Comment on above: Result Comment: meta bolite(s) may indicate diluted or adulterated urine, limitations of testing or timing of collection. Testing for legal purposes should be confirmed by another method. To request confirmation of test result, please call the lab within 7 days of sample submission. Performed By: #### U MICAO, UAX, INDIRA ####[facility] [id number] [facility] [place] [address] Lab Director: Mike Bill DO Methadone Ql (U) Negative Normal NEG [facility] Comment on above: Result Comment: (Positive cutoff 300 ng/mL) Performed By: #### U MICAO, UAX, INDIRA ####[facility] [id number] [facility] [place] [address] Lab Director: Mike Bill DO Opiate(s), Ur Negative Normal NEG [facility] Comment on above: Result Comment: (Positive cutoff 300 ng/mL) Performed By: #### U MICAO, UAX, INDIRA ####[facility] [id number] [facility] [place] [address] Lab Director: Mike Bill DO Oxycodone, Urine Negative Normal NEG [facility] Comment on above: Result Comment: (Positive cutoff 100 ng/mL) Performed By: #### U MICAO, UAX, INDIRA ####[facility] [id number] [facility] [place] [address] Lab Director: Mike Bill DO Phencyclidine, Ur Negative Normal NEG [facility] Comment on above: Result Comment: (Positive cutoff 25 ng/mL) Performed By: #### U MICAO, UAX, INDIRA ####[facility] [id number] [place] [address] Lab Director: Mike Bill DO ED Note-Physicianon 10-05-19 ED Note-Physician [id number] Normal [facility] Ethanolon 10-05-2023 Ethanol percent <0.010 % [facility] Ethanolamine [Mass/Vol] mg/dL NINF - 10 mg/dL [facility] Ethanol Alcoholon 10-05-2023 Ethanol [Mass/Vol] mg/dL Normal <10 [facility] Comment on above: Performed By: #### P T, TROPI, ALCB, CDP, MG, CP, RETCT ####[facility] [address] [place] [address] Lab Director: Mike Bill DO#### PATH ####[address] [address] Lab Director: Heladio Lawson MD Ethanol percent <0.010 Normal [facility] Comment on above: Performed By: #### P T, TROPI, ALCB, CDP, MG, CP, RETCT ####[facility] [id number] [facility] [place] [address] Lab Director: Mike Bill DO#### PATH ####[facility] [address] [place] [address] Lab Director: Heladio Lawson MD Magnesiumon 10-05-2023 Magnesium [Mass/Vol] 2.1 mg/dL Normal 1.6-2.6 [facility] Comment on above: Performed By: #### P T, TROPI, ALCB, CDP, MG, CP, RETCT ####[facility] [address] [place] [address] lab Director: Mike Bill DO#### PATH ####[facility] [address] [place] [address] lab Director: Heladio Lawson MD Magnesium [Mass/Vol] 2.1 mg/dL 1.6 - 2 .6 mg/dL [facility] Microscopic Urinalysison Bacteria LM Ql (Urine sed) FEW Abnormal None [facility] Casts LM.LPF (Urine sed) [#/Area] HYALINE Abnormal None /LPF [facility] Casts LM.LPF (Urine sed) [#/Area] 6 TO 9 Abnormal None /LPF [facility] Casts LM.LPF (Urine sed) [#/Area] FINE GRANULAR Abnormal None /LPF [facility] Casts LM.LPF (Urine sed) [#/Area] 10 TO 20 Abnormal None /LPF [facility] Epithelial cells LM.HPF (Urine sed) [#/Area] 10 TO 20 /HPF [facility] Interpretation and review of laboratory results Abnormal [facility] Mucus Ql (Urine sed) 1+ [facility] RBC LM.HPF (Urine sed) [#/Area] 3 to 5 Abnormal 0 TO 2 /HPF [facility] WBC LM.HPF (Urine sed) [#/Area] 6 TO 9 Abnormal 0 TO 5 /HPF [facility] No Panel Informationon 10-[address] [facility] PTon 10-05-2023 INR Coag (PPP) [Relative time] 1.1 {INR} Normal [facility] Comment on above: Result Comment: Therapeutic Range: Moderate Anticoagulant Intensity: INR = 2.0-3.0 High Anticoagulant Intensity: INR = 2.5-3.5 Performed By: #### P T, TROPI, ALCB, CDP, MG, CP, RETCT ####[facility] [id number] [facility] [place] [address] Lab Director: Mike Bill DO#### PATH ####[address] [address] lab Director: Heladio Lawson MD PT Coag (PPP) [Time] 14.5 s Normal 11.8-14.6 [facility] Comment on above: Performed By: #### P T, TROPI, ALCB, CDP, MG, CP, RETCT ####[facility] Gjl4931 [facility] [place] [address] lab Director: Mike Bill DO#### PATH ####[address] [address] lab Director: Heladio Lawson MD Portable XR Chest AP single viewon 10-05-2023 Cardiomegaly, with m ild pulmonary vascular congestion. [facility] EXAMINATION: ONE XRAY VIEW OF [...] pneumothorax is identified. No acute osseous abnormality. [facility] Derrick Zapien MD - 10/05/2023 EXAMINATION: [...] IMPRESSION: Cardiomegaly, with mild pulmonary vascular congestion. [facility] Radiology Study observation (narrative) [facility] Portable XR Chest AP single viewOrdered By: Derrick Zapien on 10-05-2023 [facility] Work Phone: Protime-INRon 10-05-2023 INR Coag (PPP) [Relative time] 1.1 {INR} [facility] Comment on above: Therapeutic Range: Moderate Anticoagulant Intensity: INR = 2.0-3.0 High Anticoagulant Intensity: INR = 2.5-3.5 PT Coag (PPP) [Time] 14.5 s [facility] Retic Counton 10-05-2023 Absolute Retic 0.069 M/uL Normal 0.0245-0.0 98 [facility] Comment on above: Performed By: #### P T, TROPI, ALCB, CDP, MG, CP, RETCT ####[facility] [id number] [facility] [place] [address] Lab Director: Mike Bill DO#### PATH ####[address] [place] [address] lab Director: Heladio Lawson MD Retic Count 1.2 % Normal 0.5-2.0 [facility] Comment on above: Performed By: #### P T, TROPI, ALCB, CDP, MG, CP, RETCT ####[facility] [id number] [facility] [place] [address] Lab Director: Mike Bill DO#### PATH ####[facility] [address] [place], [place] [id number] lab Director: Heladio Lawson MD Reticulocyteson 10-05-2023 Reticulocytes (Bld) [#/Vol] 0.069 10*3/uL [facility] Reticulocytes/100 RBC (Bld) 1.2 % 0.5 - 2.0 % [facility] Surgical Pathology Reporton 10-05-2023 Surgical Pathology Report (NOTE) [id number] [facility] ANATOMIC PATHOLOGY [address] [place] [address]. [place], [place] [address] SURGICAL PATHOLOGY CONSULTATION Patient Name: ESSENCE VINCENT MR#: [id number] Specimen #[id number] Procedures/Addenda PERIPHERAL BLOOD REPORT Date Ordered: 10/06/2023 [...] the electronic health record for CBC parameters ([id number], 10/05/2023, TIME UNKNOWN). PLATELETS: Platelets show normal morphology. LEUKOCYTES: White blood cells show normal morphology. No atypical lymphocytes. No dysplasia. There are no blasts. ERYTHROCYTES: Microcytic hypochromic anemia with moderate anisopoikilocytosis and elevated RBC count. Note: The electronic health record is reviewed. Elenita Carr M.D. Source: A: Peripheral Blood Normal [facility] Troponinon 10-05-2023 Interpretation and review of laboratory results Abnormal [facility] Troponin I.cardiac High sensitivity method [Mass/Vol] 25 ng/L High 0 - 14 ng/L [facility] Comment on above: High Sensitivity Tro ponin values cannot be compared with other Troponin methodologies. [facility] Troponin, High Sens 24 ng/L High 0-14 [facility] Comment on above: Result Comment: High Sensitivity Troponin values cannot be compared with other Troponin methodologies. Performed By: #### P T, TROPI, ALCB, CDP, MG, CP, RETCT ####[facility] Fcc[address] [place] [address] Lab Director: Mike Bill DO#### PATH ####[address] [address] Lab Director: Heladio Lawson MD Interpretation and review of laboratory results Abnormal [facility] Troponin I.cardiac High sensitivity method [Mass/Vol] 24 ng/L High 0 - 14 ng/L [facility] Comment on above: High Sensitivity Tro ponin values cannot be compared with other Troponin methodologies. [facility] UA w/Reflex Cultureon 2023 Bilirubin, SemiQt,Ur Negative Normal NEG [facility] Comment on above: Performed By: #### U MICAO, UAX, INDIRA ####[facility] Kox[address] [place], [place] [phone] Director: Mike Bill DO Blood, Urine TRACE Abnormal NEG [facility] Comment on above: Performed By: #### U MICAO, UAX, INDIRA ####[facility] Wrh7047 [place] [address] Lab Director: Mike Bill DO Clarity (U) Clear Normal CLEAR [facility] Comment on above: Performed By: #### U MICAO, UAX, INDIRA ####[facility] Hmx4354 [place] [address] Lab Director: Mike Bill DO Color (U) Dark Yellow Abnormal YEL [facility] Comment on above: Performed By: #### U MICAO, UAX, INDIRA ####[facility] Kfz3894 [place] [address] Lab Director: Mike Bill DO Glucose Ql (U) Negative Normal NEG [facility] Comment on above: Performed By: #### U MICAO, UAX, INDIRA ####[facility] [id number] [place] [address] Lab Director: Mike Bill DO Ketones Ql (U) TRACE Abnormal NEG [facility] Comment on above: Performed By: #### U MICAO, UAX, INDIRA ####[facility] [id number] [place] [address] Lab Director: Mike Bill DO Leukocyte esterase Test strip Ql (U) TRACE Abnormal NEG [facility] Comment on above: Performed By: #### U MICAO, UAX, INDIRA ####[facility] [address] [place] [address] Lab Director: Mike Bill DO Nitrite,Ur Negative Normal NEG [facility] Comment on above: Performed By: #### U MICAO, UAX, INDIRA ####[facility] [address] [place] [address] Lab Director: Mike Bill DO PH,Ur 6.0 Normal 5.0-8.0 [facility] Comment on above: Performed By: #### U MICAO, UAX, INDIRA ####[facility] [address] [place] [address] Lab Director: Mike Bill DO Protein Ql (U) 1+ mg/dL Abnormal NEG [facility] Comment on above: Performed By: #### U MICAO, UAX, INDIRA ####[facility] Coc[address] [facility] [place] [address] lab Director: Mike Bill DO Spec. [place],Ur 1.018 Normal 1.000-1.03 0 [facility] Comment on above: Performed By: #### U MICAO, UAX, INDIRA ####[facility] Bwb4296 [facility] [place] [address] lab Director: Mike Bill DO Urobilinogen,Ur Normal Normal 0.0-1.0 [facility] Comment on above: Performed By: #### U MICAO, UAX, INDIRA ####[facility] Mei[address]09 [facility] [place] [address] lab Director: Mike Bill DO Urinalysis with Reflex to Cu ltureon 10-05-2023 Bilirubin Ql (U) Negative NEGATIVE [facility] Clarity (U) Clear Clear [facility] Color (U) Dark Yellow Abnormal Yellow [facility] Glucose Test strip (U) [Mass/Vol] Negative NEGATIVE mg/dL [facility] Hemoglobin Auto test strip Ql (U) TRACE Abnormal NEGATIVE [facility] Interpretation and review of laboratory results Abnormal [facility] Ketones (U) [Mass/Vol] TRACE Abnormal NEGAT [place] mg/dL [facility] Leukocyte esterase Test strip Ql (U) TRACE Abnormal NEGATIVE [facility] Nitrite Ql (U) Negative NEGATIVE [facility] pH (U) 6.0 [pH] 5.0 - 8.0 [facility] Protein (U) [Mass/Vol] 1+ Abnormal NEGAT [place] mg/dL [facility] Specific gravity (U) [Rel density] 1.018 1.000 - 1.030 [facility] Urobilinogen Qn (U) Normal 0.0 - 1. 0 EU/dL [facility] Urinalysis,Microon 4 Bacteria FEW Abnormal NONE [facility] Comment on above: Performed By: #### U MICAO, UAX, INDIRA ####[facility] [id number] [facility] [place] [address] Lab Director: Mike Bill DO Casts HYALINE Abnormal NONE [facility] Comment on above: Result Comment: 6 TO 9 FINE GRANULAR 10 TO 20 Performed By: #### U MICAO, UAX, INDIRA ####[facility] [id number] [facility], [place] [phone] Director: Mike Bill DO Epithelial cells LM Ql (Urine sed) 10 TO 20 Normal [facility] Comment on above: Performed By: #### U MICAO, UAX, INDIRA ####[facility] Prs9783 [facility], [place] [phone] Director: Mike Bill DO Mucus Strands 1+ Normal [facility] Comment on above: Performed By: #### U MICAO, UAX, INDIRA ####[facility] Avg[address] [place] [address] Lab Director: Mike Bill DO Urine RBC's 3 to 5 Abnormal 2 [facility] Comment on above: Performed By: #### U MICAO, UAX, INDIRA ####[facility] [address] [place] [address].[place] [address] Lab Director: Mike Bill DO Urine WBC's 6 TO 9 Abnormal 5 [facility] Comment on above: Performed By: #### U MICAO, UAX, INDIRA ####[facility] [address] [place] [address] Lab Director: Mike Bill DO Urine Drug Screenon 10-05-19 24 Amphetamines Ql (U) Negative NEGATIVE [facility] Comment on above: (Positive cutoff 1000 ng/mL) Barbiturates Screen Ql (U) Positive Abnormal NEGATIVE [facility] [employer] Comment on above: (Positive cutoff 200 ng/mL) Benzodiazepines Ql (U) Negative NEGATIVE [facility] Comment on above: (Positive cutoff 200 ng/mL) Cannabinoids Screen Ql (U) Positive Abnormal NEGATIVE [facility] [employer] Comment on above: (Positive cutoff 50 ng/mL) Cocaine Ql (U) Negative NEGATIVE [facility] [employer] Comment on above: (Positive cutoff 300 ng/mL) fentaNYL Ql (U) Negative NEGATIVE [facility] [employer] Comment on above: (Positive cutoff 5 ng/ml) Interpretation and review of laboratory results Abnormal [facility] Methadone Ql (U) Negative NEGATIVE [facility] [employer] Comment on above: (Positive cutoff 300 ng/mL) Opiates Screen Ql (U) Negative NEGATIVE [facility] [employer] [facility] Comment on above: (Positive cutoff 300 ng/mL) oxyCODONE Ql (U) Negative NEGATIVE [facility] [employer] Comment on above: (Positive cutoff 100 ng/mL) Phencyclidine Ql (U) Negative NEGATIVE [facility] Comment on above: (Positive cutoff 25 ng/mL) Test Information Assay provides medic al screening only. The absence of expected drug(s) and/or metabolite(s) may indicate diluted or adulterated urine, limitations of testing or timing of collection. [facility] Comment on above: Testing for legal pu rposes should be confirmed by another method. To request confirmation of test result, please call the lab within 7 days of sample submission. [facility] XR CHEST PORTABLEon 10-05-19 24 XR CHEST [...] Derrick Zapien MD 10/05/23 Final result Normal [facility] Basic metabolic 2000 panelon 09-29-2023 Anion gap [Moles/Vol] 16 mmol/L 10 - 2 0 mmol/L [facility] Calcium [Mass/Vol] 9.3 mg/dL 8.6 - 10. 3 mg/dL [facility] Chloride [Moles/Vol] 100 mmol/L 98 - 10 7 mmol/L [facility] CO2 [Moles/Vol] 29 mmol/L 21 - 32 mmol/L [facility] Creatinine [Mass/Vol] 1.16 mg/dL High 0.50 - 1.05 mg/dL [facility] GFR/1.73 sq M.predicted among non-blacks MDRD (S/P/Bld) [Vol rate/Area] 56 mL/min/{1.73_m2} Low - PINF [facility] Comment on above: Calculations of yovanny mated GFR are performed using the 2020 CKD-EPI Study Refit equation without the race variable for the IDMS-Traceable creatinine methods. https://jasn.asnjournals.org/content/early/ASN.15449 42887 Glucose [Mass/Vol] 83 mg/dL 74 - 99 mg/dL [facility] Interpretation and review of laboratory results Abnormal [facility] Potassium [Moles/Vol] 3.7 mmol/L 3.5 - 5.3 mmol/L [facility] Sodium [Moles/Vol] 141 mmol/L 136 - 145 mmol/L [facility] Urea nitrogen [Mass/Vol] 33 mg/dL High 6 - 23 mg/dL [facility] Anion gap [Moles/Vol] 16 mmol/L Normal 10-20 [facility] Comment on above: Performed By: #### 2 4321-2 #### SHAQUILLE GOLDMAN ([id number]) [facility] ([facility]) [address] [place] [address] Calcium [Mass/Vol] 9.3 mg/dL Normal 8.6-10.3 [place] Comment on above: Performed By: #### 2 4321-2 #### REGULOIBELIISABELLA MICHAEL SKYE ([id number]) [facility] ([facility]) [address] [place] [address] Chloride [Moles/Vol] 100 mmol/L Normal 98-107 [facility] Comment on above: Performed By: #### 2 4321-2 #### ANAIBELIISABELLA MICHAEL SKYE ([id number]) [facility] ([facility]) [address] [place] [address] CO2 [Moles/Vol] 29 mmol/L Normal 21-32 [facility] Comment on above: Performed By: #### 2 4321-2 #### REGULOIBELIISABELLA MICHAEL SKYE ([id number]) [facility] ([facility]) [address] [place] [address] Creatinine [Mass/Vol] 1.16 mg/dL High 0.50-1.05 [facility] Comment on above: Performed By: #### 2 4321-2 #### REGULOIBJULIO MICHAEL SKYE ([id number]) [facility] ([facility]) [address] [place] [address] Glomerular filtration rate/1.73 sq M.predicted 56 mL/min/1.73m*2 Low >60 [facility] Comment on above: Result Comment: Calc ulations of estimated GFR are performed using the 2020 CKD-EPI Study Refit equation without the race variable for the IDMS-Traceable creatinine methods. https://jasn.asnjournals.org/content/early//ASN.77660 15417 Performed By: #### 2 4321-2 #### REGULOIBELIISABELLA MICHAEL SKYE ([id number]) [facility] ([facility]) [address] [place] [address] Glucose [Mass/Vol] 83 mg/dL Normal 74-99 [place] Comment on above: Performed By: #### 2 4321-2 #### ANAIBELIISABELLA MICHAEL SKYE ([id number]) [facility] ([facility]) [address] [place] [address] Potassium [Moles/Vol] 3.7 mmol/L Normal 3.5-5.3 [facility] Comment on above: Performed By: #### 2 4321-2 #### SHAQUILLE GOLDMAN ([id number]) [facility] ([facility]) [address] [place] [address] Sodium [Moles/Vol] 141 mmol/L Normal 136-145 [place] Comment on above: Performed By: #### 2 4321-2 #### SHAQUILLE GOLDMAN ([id number]) [facility] ([facility]) [address] [place] [address] Urea nitrogen [Mass/Vol] 33 mg/dL [facility] 6-23 [facility] Comment on above: Performed By: #### 2 4321-2 #### SHAQUILLE GOLDMAN ([id number]) [facility] (EMC) [address] [place] [address] CBC panel Auto (Bld)on 09-29 Erythrocyte distribution width (RBC) [Ratio] 23.8 % High 11.5 - 14.5 % [facility] Hematocrit (Bld) [Volume fraction] 35.4 % Low 36.0 - 46.0 % [facility] Hemoglobin (Bld) [Mass/Vol] 9.8 g/dL Low 12.0 - 16.0 g/dL [facility] Interpretation and review of laboratory results Abnormal [facility] MCH (RBC) [Entitic mass] 17.9 pg Low 26.0 - 34.0 pg [facility] MCHC (RBC) [Mass/Vol] 27.7 g/dL Low 32.0 - 36.0 g/dL [facility] MCV (RBC) [Entitic vol] 65 fL Low 80 - 100 fL [facility] Nucleated RBC/100 WBC (Bld) [Ratio] 0.0 % [facility] Platelets (Bld) [#/Vol] 303 10*3/uL [facility] RBC (Bld) [#/Vol] 5.47 10*6/uL [facility] WBC (Bld) [#/Vol] 8.7 10*3/uL [facility] Erythrocyte distribution width (RBC) [Ratio] 23.8 % High 11.5-14.5 [facility] Comment on above: Performed By: #### 5 8410-2 #### SHAQUILLE GOLDMAN ([id number]) [facility] ([facility]) [address] [place] [address] Hematocrit (Bld) [Volume fraction] 35.4 % Low 36.0-46.0 [facility] Comment on above: Performed By: #### 5 8410-2 #### SHAQUILLE GOLDMAN ([id number]) [facility] ([facility]) [address] [place] [address]244 Hemoglobin (Bld) [Mass/Vol] 9.8 g/dL Low 12.0-16.0 [facility] Comment on above: Performed By: #### 5 8410-2 #### SHAQUILLE GOLDMAN ([id number]) [facility] ([facility]) [address] [place] [address] 68828 MCH (RBC) [Entitic mass] 17.9 pg Low 26.0-34.0 [facility] Comment on above: Performed By: #### 5 8410-2 #### SHAQUILLE GOLDMAN ([id number]) [facility] ([facility]) [address] [place] [address] 71974 MCHC (RBC) [Mass/Vol] 27.7 g/dL Low 32.0-36.0 [facility] Comment on above: Performed By: #### 5 8410-2 #### SHAQUILLE GOLDMAN ([id number]) [facility] ([facility]) [address] [place] [address] 24802 MCV (RBC) [Entitic vol] 65 fL Low 80-100 [facility] Comment on above: Performed By: #### 5 8410-2 #### SHAQUILLE GOLDMAN ([id number]) [facility] ([facility]) [address] [place] [address] 77664 Nucleated RBC/100 WBC (Bld) [Ratio] 0.0 /100 WBCs Normal 0.0-0.0 [facility] Comment on above: Performed By: #### 5 8410-2 #### SHAQUILLE GOLDMAN ([id number]) [facility] ([facility]) [address] [place] [address] 89583 Platelets (Bld) [#/Vol] 303 x10*3/uL Normal 150-450 [facility] Comment on above: Performed By: #### 5 8410-2 #### SHAQUILLE GOLDMAN ([id number]) [facility] ([facility]) [address] [place] [address] 19900 RBC (Bld) [#/Vol] 5.47 x10*6/uL High 4.00-5.20 [facility] Comment on above: Performed By: #### 5 8410-2 #### SHAQUILLE GOLDMAN ([id number]) [facility] ([facility]) [address] [place] [address] 41480 WBC (Bld) [#/Vol] 8.7 x10*3/uL Normal 4.4-11.3 [facility] Comment on above: Performed By: #### 5 8410-2 #### SHAQUILLE GOLDMAN ([id number]) [facility] ([facility]) [address] [place] [address] 74020 ECG 12-LEADon 09-29-2023 ECG 12-LEAD Ventricular Rate 80 Atrial Rate 79 QRS Duration 240 Q-T Interval 640 QTC Calculation(Bazett) 738 R Encino -75 T Encino 92 QRS Count 13 Q Onset 160 T Offset 480 QTC Fredericia 705 Diagnosis AV dual-paced rhythm Abnormal ECG When compared with ECG of 21-JAN-2022 17:39, No significant change was found Confirmed by Fly Sheldon ([id number]) on 09/29/2023 3:03:21 PM Normal [facility] Electrophysiology studyon [facility] Work Phone: No Panel Informationon 09-29 Extra Tube Hold for add-ons. [facility] Comment on above: Auto resulted. [facility] PT and aPTT panel Coag (PPP) on 09-29-2023 aPTT Coag (PPP) [Time] 25 s Low [facility] INR Coag (PPP) [Relative time] 1.0 {INR} 0.9 - 1.1 [facility] Interpretation and review of laboratory results Abnormal [facility] PT Coag (PPP) [Time] 11.1 s [facility] The APTT is no longe r used for monitoring Unfractionated Heparin Therapy. For monitoring Heparin Therapy, use the Heparin Assay. [facility] aPTT Coag (PPP) [Time] 25 s Low 27-38 [facility] Comment on above: Order Comment: The A PTT is no longer used for monitoring Unfractionated Heparin Therapy. For monitoring Heparin Therapy, use the Heparin Assay. Performed By: #### 3 4529-8 #### SHAQUILLE GOLDMAN ([id number]) [facility] ([facility]) [address] [place] [address]307 INR Coag (PPP) [Relative time] 1.0 Normal 0.9-1.1 [facility] Comment on above: Order Comment: The A PTT is no longer used for monitoring Unfractionated Heparin Therapy. For monitoring Heparin Therapy, use the Heparin Assay. Performed By: #### 3 4529-8 #### SHAQUILLE GOLDMAN ([id number]) [facility] ([facility]) [address] [place] [address] 96792 PT Coag (PPP) [Time] 11.1 s Normal 9.8-12.8 [facility] Comment on above: Order Comment: The A PTT is no longer used for monitoring Unfractionated Heparin Therapy. For monitoring Heparin Therapy, use the Heparin Assay. Performed By: #### 3 4529-8 #### SHAQUILLE GOLDMAN ([id number]) [facility] (EM) [address] [place] [address] 16121 Cardiac Device Check - In Cl inicOrdered By: Margareth Nunez on 09-02-2023 [facility] Work Phone: Cardiac Device Check - In Cl inicon 09-02-2023 Radiology Study observation (narrative) [facility] Work Phone: CNPNon 08-03-2023 CNPN Telephone (EPSMN) ----- ESSENCE VINCENT ([id number]) 1970 F Date Time Provider Department 08/03/[address] [facility] During your visit today, we recorded [...] Osei MD Procedure Requested: ICD change CPT: 14554 Multi Lead Date of Last HANDP? N/A Indications / Dx for Procedure: VT Procedure Time Frame: 1 month Estimated length of case: 1 HOUR Device Company: [employer] Patient: No Type of Bed: [...] for Visit: Schedule Surgery [1330] Cmt: EPS- [employer]-D Change Out Prescriptions as of 08/27/2023 - [...] this patient by: PATIENT Jameel Mcmahon, PharmD [facility] LD 11-5-12 Problem List As Of [...] [I34.0] 07/16/2012 Pulmonary hypertension [I27.20] Dual chamber [employer]-D [Z95.810] 07/23/2020 Primary hypertension [I10] Nicotine use disorder [F17.200] Exercise-induced asthma [J45.990] Anemia [D64.9] 10/29/2011 07/23/2020 H/o GERD [K21.9] 07/23/2020 Migraines [G43.909] H/o Depression/Anxiety/Sleep disturbance [F32.* Preop testing [Z01.818] 07/08/2012 07/23/2020 SUMMARY (more content not included)... [facility] ----- HARJITESSENCE Gamez ([id number]) 1970 F Date Time Provider Department 07/28/23 [...] by: PATIENT Jameel Mcmahon, PharmD asa LD 07-04-12 Problem List As Of Date 07/28/2023 Noted Resolved Urinary tract infection of [P39.3] 07/26/2004 07/23/2020 Fitting and adjustment of orthopedic device [Z4*04/29/2010 07/23/2020 CAD (coronary artery disease) [I25.10] Remote STEMI (1998) [I21.3] 07/23/2020 Cardiogenic shock (HCC) [R57.0] 07/23/2020 Heart failure, systolic, acute on chronic (HCC)* 07/23/2020 Heart failure, systolic and diastolic, chronic * MR (mitral regurgitation) [I34.0] 07/16/2012 Pulmonary hypertension [I27.20] Dual chamber [employer]-D [Z95.810] 07/23/2020 Primary hypertension [I10] Nicotine use disorder [F17.200] Exercise-induced asthma [J45.990] Anemia [D64.9] 10/29/2011 07/23/2020 H/o GERD [K21.9] 07/23/2020 Migraines [G43.909] H/o Depression/Anxiety/Sleep disturbance [F32.* Preop testing [Z01.818] 07/08/2012 07/23/2020 SUMMARY [V999.95] 07/11/2012 07/23/2020 Pulmonary hypertension, moderate to severe (HCC*2012 Other acute postoperative pain [G89.18] 07/13/2012 07/16/2012 Pulmonary insuff [FSL6794] 07/13/2012 07/23/2020 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 [...] Status:Closed by MARIA GLOVER on 07/28/23 Normal [facility] ICD REMOTE CHECKon 3 AV Delay Adaptive Paced Minimum (ms) 350 ms [facility] AV Delay Adaptive Rate Maximum (bpm) 90 {beats}/min [facility] AV Delay Adaptive Rate Minimum (bpm) 75 {beats}/min [facility] AV Delay Adaptive Sensed Minimum (ms) 250 ms [facility] AV Delay Adaptive Status ENABLED [facility] AV Delay Paced (ms) 100 ms [facility] AV Delay Sensed (ms) [address] [facility] Battery Voltage 2.72 V [facility] Scott RA Pacing Amplitude (volts) 2 V [facility] Scott RA Pacing Polarity BI [facility] Scott RA Pacing Pulse Width (ms) 0.4 ms [facility] Scott RA Sensing Amplitude (mvolts) 0.3 mV [facility] Scott RA Sensing Blanking Period (ms) 150 ms [facility] Scott RA Sensing Polarity BI [facility] Scott RA Sensing Refractory Period (ms) 250 ms [facility] Scott RV Pacing Amplitude (volts) 2.25 V [facility] Scott RV Pacing Polarity BI [facility] Scott RV Pacing Pulse Width (ms) 0.4 ms [facility] Scott RV Sensing Amplitude (mvolts) 0.3 mV [facility] Scott RV Sensing Blanking Period (ms) 200 ms [facility] Scott RV Sensing Polarity BI [facility] Detection Configuration (Vent) 2 - Zone [facility] FastVT_Detection Interval 450 ms [facility] FastVT_Therapy Configuration 2 ATP(s) + 0 Shock(s) [facility] ICD AFIB DetectionStatus DISABLED [facility] ICD ATAF DetectionInterval ms 450 ms [facility] ICD ATAF DetectionStatus ENABLED [facility] ICD ATAF TherapyConfiguration 2 ATP(s) + 0 Shock(s) [facility] ICD FastVT DetectionStatus ENABLED [facility] ICD-ADLRATE_BPM 85 {beats}/min [facility] ICD-AMS EPISODES 133 {beats}/min [facility] ICD-ATP Episodes (Vent) 0 [facility] ICD-ATRIALFIBRILLATION 535 Cl [facility] ICD-ATRIALTACHYCARDIA 535 [facility] ICD-ATRIALTACHYCARDIA 18 [facility] ICD-ATRIALTACHYCARDIA 9 [facility] ICD-Counters Cleared Date 09/23/2016 [facility] ICD-Device Mfg MDT [facility] ICD-Fast Ventricular Tachycardia 9 [facility] ICD-LEADIMPEDANCEATRIA L 342 ohm [facility] ICD-Percent Pacing (Atrial) 76.76 % [facility] ICD-Percent Pacing (Vent) 95.69 % [facility] ICD-PMT Intervention ENABLED [facility] ICD-PVC Intervention ENABLED [facility] ICD-Rate Modulation Acceleration Reaction 30 s [facility] ICD-Rate Modulation Deceleration Exercise [facility] ICD-Rate Modulation Morris 3 [facility] ICD-Rate Modulation Threshold MediumHigh [facility] ICD-Shocks Aborted (Vent) 0 [facility] BNP-DBELNP-SJQNPXKSE [address] [facility] ICD-SHOCKSABORTED 0 [facility] ICD-SHOCKSDELIVEREDVEN TRICULAR 0 [facility] ICD-Ventricular Fibrillation 0 [facility] Implant Date 07/03/2005 [facility] Implant Date 11/30/2002 [facility] Lead Impedance (LV) 4047 ohm [facility] Lead Impedance (RV) 779 ohm [facility] Lead Impedance High Voltage 59 ohm [facility] Lead1 Mfg MDT [facility] Lead2 Mfg MDT [facility] Lead3 Mfg GDT [facility] Location LV [facility] Location RA [facility] Location RV [facility] Lower Rate (bpm) 80 {beats}/min [facility] LV PACING % 0 % [facility] Max Sensor Rate (bpm) 90 {beats}/min [facility] MDT_PROG_TACHY_ZONE_DE TECTIONS_STATUS ENABLED [facility] Model [id number] Viva XT [employer]-D [facility] Model 4196 Attain Ability MRI SureScan [facility] Model 5076 CapSureFix Novus [facility] Model 0144 Endotak Endurance Rx [facility] Pacing Mode DDDR [facility] Serial Number [id number] [facility] Serial Number [id number] [facility] Serial Number [id number] [facility] Serial Number [id number] [facility] Test Charge Energy [facility] Test Charge Time 5.525 [facility] Therapy Status (Vent) Enabled [facility] Thresh RA Capture Amplitude (volts) 0.625 V [facility] Thresh RA Capture Duration (ms) 0.4 ms [facility] Thresh RA Sensing Amplitude (mvolts) 1.625 mV [facility] Thresh RV Capture Amplitude (VOLTS) 1 V [facility] Thresh RV Capture Duration (MS) 0.4 ms [facility] Thresh RV Sensing Amplitude (MVOLTS) 11.625 mV [facility] Tracking Rate (bpm) 90 {beats}/min [facility] VF Zone Detection Interval 450 ms [facility] VF Zone Therapy Configuration 2 ATP(s) + 0 Shock(s) [facility] No Panel Informationon 07-28 BLANK _ [facility] ICD-ATRIALTACHYCARDIA 0 [facility] ICD-Fast Ventricular Tachycardia 0 [facility] Implant Date 09/23/2016 [facility] ED Note-Physicianon 11-06-20 23 ED Note-Physician [id number]#[id number] Normal [facility] ED Note-Physician [id number] Normal [facility] ED Note-Physician [id number]#[id number] Normal [facility] Physician Referralon 023 Physician Referral [id number]:12 7 Normal [facility] ICD REMOTE CHECKon 3 AV Delay Adaptive Paced Minimum (ms) 350 ms [facility] AV Delay Adaptive Rate Maximum (bpm) 90 {beats}/min [facility] AV Delay Adaptive Rate Minimum (bpm) 75 {beats}/min [facility] AV Delay Adaptive Sensed Minimum (ms) 250 ms [facility] AV Delay Adaptive Status ENABLED [facility] AV Delay Paced (ms) 100 ms [facility] AV Delay Sensed (ms) [address] [facility] Battery Voltage 2.77 V [facility] Scott RA Pacing Amplitude (volts) 2 V [facility] Scott RA Pacing Polarity BI [facility] Scott RA Pacing Pulse Width (ms) 0.4 ms [facility] Scott RA Sensing Amplitude (mvolts) 0.3 mV [facility] Scott RA Sensing Blanking Period (ms) 150 ms [facility] Scott RA Sensing Polarity BI [facility] Scott RA Sensing Refractory Period (ms) 250 ms [facility] Scott RV Pacing Amplitude (volts) 2.5 V [facility] Scott RV Pacing Polarity BI [facility] Scott RV Pacing Pulse Width (ms) 0.4 ms [facility] Scott RV Sensing Amplitude (mvolts) 0.3 mV [facility] Scott RV Sensing Blanking Period (ms) 200 ms [facility] Scott RV Sensing Polarity BI [facility] Detection Configuration (Vent) 2 - Zone [facility] FastVT_Detection Interval 450 ms [facility] FastVT_Therapy Configuration 2 ATP(s) + 0 Shock(s) [facility] ICD AFIB DetectionStatus DISABLED [facility] ICD ATAF DetectionInterval ms 450 ms [facility] ICD ATAF DetectionStatus ENABLED [facility] ICD ATAF TherapyConfiguration 2 ATP(s) + 0 Shock(s) [facility] ICD FastVT DetectionStatus ENABLED [facility] ICD-ADLRATE_BPM 85 {beats}/min [facility] ICD-AMS EPISODES 133 {beats}/min [facility] ICD-ATP Episodes (Vent) 0 [facility] ICD-ATRIALFIBRILLATION 10 Cl [facility] ICD-ATRIALTACHYCARDIA 10 [facility] ICD-Counters Cleared Date 09/23/2016 [facility] ICD-Device Mfg MDT [facility] ICD-LEADIMPEDANCEATRIA L 361 ohm [facility] ICD-Percent Pacing (Atrial) 50.68 % [facility] ICD-Percent Pacing (Vent) 87.63 % [facility] ICD-PMT Intervention ENABLED [facility] ICD-PVC Intervention ENABLED [facility] ICD-Rate Modulation Acceleration Reaction 30 s [facility] ICD-Rate Modulation Deceleration Exercise [facility] ICD-Rate Modulation Morris 3 [facility] ICD-Rate Modulation Threshold MediumHigh [facility] ICD-Shocks Aborted (Vent) 0 [facility] UJR-[id number]-[id number] 0 [facility] ICD-SHOCKSABORTED 0 [facility] ICD-SHOCKSDELIVEREDVEN TRICULAR 0 [facility] ICD-Ventricular Fibrillation 0 [facility] Implant Date 07/03/2005 [facility] Implant Date 11/30/2002 [facility] Lead Impedance (LV) 4047 ohm [facility] Lead Impedance (RV) 779 ohm [facility] Lead Impedance High Voltage 61 ohm [facility] Lead1 Mfg MDT [facility] Lead2 Mfg MDT [facility] Lead3 Mfg GDT [facility] Location LV [facility] Location RA [facility] Location RV [facility] Lower Rate (bpm) 80 {beats}/min [facility] LV PACING % 0 % [facility] Max Sensor Rate (bpm) 90 {beats}/min [facility] T_PROG_TACHY_ZONE_DE TECTIONS_STATUS ENABLED [facility] Model [id number] Viva XT [employer]-D [facility] Model 4196 Attain Ability MRI SureScan [facility] Model 5076 CapSureFix Novus [facility] Model 0144 Endotak Endurance Rx [facility] Pacing Mode DDDR [facility] Serial Number [id number] [facility] Serial Number [id number] [facility] Serial Number [id number] [facility] Serial Number [id number] [facility] Test Charge Energy [facility] Test Charge Time 5.145 [facility] Therapy Status (Vent) Enabled [facility] Thresh RA Capture Amplitude (volts) 0.625 V [facility] Thresh RA Capture Duration (ms) 0.4 ms [facility] Thresh RA Sensing Amplitude (mvolts) 2.875 mV [facility] Thresh RV Capture Amplitude (VOLTS) 1 V [facility] Thresh RV Capture Duration (MS) 0.4 ms [facility] Thresh RV Sensing Amplitude (MVOLTS) 6.875 mV [facility] Tracking Rate (bpm) 90 {beats}/min [facility] VF Zone Detection Interval 450 ms [facility] VF Zone Therapy Configuration 2 ATP(s) + 0 Shock(s) [facility] No Panel Informationon 05-06 BLANK _ [facility] ICD-ATRIALTACHYCARDIA 0 [facility] ICD-Fast Ventricular Tachycardia 0 [facility] Implant Date 09/23/2016 [facility] ICD REMOTE CHECKon 3 AV Delay Adaptive Paced Minimum (ms) 350 ms [facility] AV Delay Adaptive Rate Maximum (bpm) 90 {beats}/min [facility] AV Delay Adaptive Rate Minimum (bpm) 75 {beats}/min [facility] AV Delay Adaptive Sensed Minimum (ms) 250 ms [facility] AV Delay Adaptive Status ENABLED [facility] AV Delay Paced (ms) 100 ms [facility] AV Delay Sensed (ms) [address] [facility] Battery Voltage 2.77 V [facility] Scott RA Pacing Amplitude (volts) 2 V [facility] Csott RA Pacing Polarity BI [facility] Scott RA Pacing Pulse Width (ms) 0.4 ms [facility] Scott RA Sensing Amplitude (mvolts) 0.3 mV [facility] Scott RA Sensing Blanking Period (ms) 150 ms [facility] Scott RA Sensing Polarity BI [facility] Scott RA Sensing Refractory Period (ms) 250 ms [facility] Scott RV Pacing Amplitude (volts) 2.75 V [facility] Scott RV Pacing Polarity BI [facility] Scott RV Pacing Pulse Width (ms) 0.4 ms [facility] Scott RV Sensing Amplitude (mvolts) 0.3 mV [facility] Scott RV Sensing Blanking Period (ms) 200 ms [facility] [facility] Sensing Polarity BI [facility] Detection Configuration (Vent) 2 - Zone [facility] FastVT_Detection Interval 450 ms [facility] FastVT_Therapy Configuration 2 ATP(s) + 0 Shock(s) [facility] ICD AFIB DetectionStatus DISABLED [facility] ICD ATAF DetectionInterval ms 450 ms [facility] ICD ATAF DetectionStatus ENABLED [facility] ICD ATAF TherapyConfiguration 2 ATP(s) + 0 Shock(s) [facility] ICD FastVT DetectionStatus ENABLED [facility] ICD-ADLRATE_BPM 85 {beats}/min [facility] ICD-AMS EPISODES 133 {beats}/min [facility] ICD-ATP Episodes (Vent) 0 [facility] ICD-ATRIALFIBRILLATION 4 Cl [facility] ICD-ATRIALTACHYCARDIA 4 [facility] ICD-Counters Cleared Date 09/23/2016 [facility] ICD-Device Sri CLAYT [facility] ICD-LEADIMPEDANCEATRIA L 342 ohm [facility] ICD-Percent Pacing (Atrial) 46.68 % [facility] ICD-Percent Pacing (Vent) 90.31 % [facility] ICD-PMT Intervention ENABLED [facility] ICD-PVC Intervention ENABLED [facility] ICD-Rate Modulation Acceleration Reaction 30 s [facility] ICD-Rate Modulation Deceleration Exercise [facility] ICD-Rate Modulation Morris 3 [facility] ICD-Rate Modulation Threshold MediumHigh [facility] ICD-Shocks Aborted (Vent) 0 [facility] [id number] 0 [facility] ICD-SHOCKSABORTED 0 [facility] ICD-SHOCKSDELIVEREDVEN TRICULAR 0 [facility] ICD-Ventricular Fibrillation 0 [facility] Implant Date 07/03/2005 [facility] Implant Date 11/30/2002 [facility] Lead Impedance (LV) 4047 ohm [facility] Lead Impedance (RV) 760 ohm [facility] Lead Impedance High Voltage 64 ohm [facility] Lead1 Emilyg MDT [facility] Lead2 Emilyg MDT [facility] Lead3 Emilyg GDT [facility] Location LV [facility] Location RA [facility] Location RV [facility] Lower Rate (bpm) 80 {beats}/min [facility] LV PACING % 0 % [facility] Max Sensor Rate (bpm) 90 {beats}/min [facility] MDT_PROG_TACHY_ZONE_DE TECTIONS_STATUS ENABLED [facility] Model [id number] Viva X[place] AGRIC[place] AGENT-D [facility] Model 4196 Attain Ability MRI SureScan [facility] Model 5076 CapSureFix Novus [facility] Model 0144 Endotak Endurance Rx [facility] Pacing Mode DDDR [facility] Serial Number [id number] [facility] Serial Number [id number] [facility] Serial Number [id number] [facility] Serial Number [id number] [facility] Test Charge Energy [facility] Test Charge Time 5.145 [facility] Therapy Status (Vent) Enabled [facility] Thresh RA Capture Amplitude (volts) 0.625 V [facility] Thresh RA Capture Duration (ms) 0.4 ms [facility] Thresh RA Sensing Amplitude (mvolts) 2.5 mV [facility] Thresh RV Capture Amplitude (VOLTS) 1.375 V [facility] Thresh RV Capture Duration (MS) 0.4 ms [facility] Thresh RV Sensing Amplitude (MVOLTS) 7.5 mV [facility] Tracking Rate (bpm) 90 {beats}/min C [facility] VF Zone Detection Interval 450 ms [facility] VF Zone Therapy Configuration 2 ATP(s) + 0 Shock(s) [facility] No Panel Informationon 04-22 BLANK _ [facility] ICD-ATRIALTACHYCARDIA 0 [facility] ICD-Fast Ventricular Tachycardia 0 [facility] Implant Date 09/23/2016 [facility] ICD REMOTE CHECKon 3 AV Delay Adaptive Paced Minimum (ms) 350 ms [facility] AV Delay Adaptive Rate Maximum (bpm) 90 {beats}/min [facility] AV Delay Adaptive Rate Minimum (bpm) 75 {beats}/min [facility] AV Delay Adaptive Sensed Minimum (ms) 250 ms [facility] AV Delay Adaptive Status ENABLED [facility] AV Delay Paced (ms) 100 ms [facility] AV Delay Sensed (ms) [address] [facility] Battery Voltage 2.78 V [facility] Scott RA Pacing Amplitude (volts) 2 V [facility] Scott RA Pacing Polarity BI [facility] Scott RA Pacing Pulse Width (ms) 0.4 ms [facility] Scott RA Sensing Amplitude (mvolts) 0.3 mV [facility] Scott RA Sensing Blanking Period (ms) 150 ms [facility] Scott RA Sensing Polarity BI [facility] Scott RA Sensing Refractory Period (ms) 250 ms [facility] Scott RV Pacing Amplitude (volts) 3 V [facility] Scott RV Pacing Polarity BI [facility] Scott RV Pacing Pulse Width (ms) 0.4 ms [facility] Scott RV Sensing Amplitude (mvolts) 0.3 mV [facility] Scott RV Sensing Blanking Period (ms) 200 ms [facility] Scott RV Sensing Polarity BI [facility] Detection Configuration (Vent) 2 - Zone [facility] FastVT_Detection Interval 450 ms [facility] FastVT_Therapy Configuration 2 ATP(s) + 0 Shock(s) [facility] ICD AFIB DetectionStatus DISABLED [facility] ICD ATAF DetectionInterval ms 450 ms [facility] ICD ATAF DetectionStatus ENABLED [facility] ICD ATAF TherapyConfiguration 2 ATP(s) + 0 Shock(s) [facility] ICD FastVT DetectionStatus ENABLED [facility] ICD-ADLRATE_BPM 85 {beats}/min [facility] ICD-AMS EPISODES 133 {beats}/min [facility] ICD-ATP Episodes (Vent) 0 [facility] ICD-ATRIALFIBRILLATION 0 Cl [facility] ICD-Counters Cleared Date 09/23/2016 [facility] ICD-Device Sri GROSS [facility] ICD-LEADIMPEDANCEATRIA L 342 ohm [facility] ICD-Percent Pacing (Atrial) 44.86 % [facility] ICD-Percent Pacing (Vent) 83.22 % [facility] ICD-PMT Intervention ENABLED [facility] ICD-PVC Intervention ENABLED [facility] ICD-Rate Modulation Acceleration Reaction 30 s [facility] ICD-Rate Modulation Deceleration Exercise [facility] ICD-Rate Modulation Morris 3 [facility] ICD-Rate Modulation Threshold MediumHigh [facility] ICD-Shocks Aborted (Vent) 0 [facility] [id number] [address] [facility] ICD-SHOCKSABORTED 0 [facility] ICD-SHOCKSDELIVEREDVEN TRICULAR 0 [facility] ICD-Ventricular Fibrillation 0 [facility] Implant Date 07/03/2005 [facility] Implant Date 11/30/2002 [facility] Lead Impedance (LV) 4047 ohm [facility] Lead Impedance (RV) 779 ohm [facility] Lead Impedance High Voltage 61 ohm [facility] Lead1 Mfg MDT [facility] Lead2 Mfg MDT [facility] Lead3 Mfg GDT [facility] Location LV [facility] Location RA [facility] Location RV [facility] Lower Rate (bpm) 80 {beats}/min [facility] LV PACING % 0 % [facility] Max Sensor Rate (bpm) 90 {beats}/min [facility] MDT_PROG_TACHY_ZONE_DE TECTIONS_STATUS ENABLED [facility] Model [id number] Viva XT [place] AGRIC[place]URAL AGENT-D [facility] Model 4196 Attain Ability MRI SureScan [facility] Model 5076 CapSureFix Novus [facility] Model 0144 Endotak Endurance Rx [facility] Pacing Mode DDDR [facility] Serial Number [id number] [facility] Serial Number [id number] [facility] Serial Number [id number] [facility] Serial Number [id number] [facility] Test Charge Energy [facility] Test Charge Time 5.145 [facility] Therapy Status (Vent) Enabled [facility] Thresh RA Capture Amplitude (volts) 0.625 V [facility] Thresh RA Capture Duration (ms) 0.4 ms [facility] Thresh RA Sensing Amplitude (mvolts) 2 mV [facility] Thresh RV Capture Amplitude (VOLTS) 1.125 V [facility] Thresh RV Capture Duration (MS) 0.4 ms [facility] Thresh RV Sensing Amplitude (MVOLTS) 9.25 mV [facility] Tracking Rate (bpm) 90 {beats}/min C [facility] VF Zone Detection Interval 450 ms [facility] VF Zone Therapy Configuration 2 ATP(s) + 0 Shock(s) [facility] AV Delay Adaptive Paced Minimum (ms) 350 ms [facility] AV Delay Adaptive Rate Maximum (bpm) 90 {beats}/min [facility] AV Delay Adaptive Rate Minimum (bpm) 75 {beats}/min [facility] AV Delay Adaptive Sensed Minimum (ms) 250 ms [facility] AV Delay Adaptive Status ENABLED [facility] AV Delay Paced (ms) 100 ms [facility] AV Delay Sensed (ms) [address] [facility] Battery Voltage 2.78 V [facility] Scott RA Pacing Amplitude (volts) 2 V [facility] Scott RA Pacing Polarity BI [facility] Scott RA Pacing Pulse Width (ms) 0.4 ms [facility] Scott RA Sensing Amplitude (mvolts) 0.3 mV [facility] Scott RA Sensing Blanking Period (ms) 150 ms [facility] Scott RA Sensing Polarity BI [facility] Scott RA Sensing Refractory Period (ms) 250 ms [facility] Scott RV Pacing Amplitude (volts) 3 V [facility] Scott RV Pacing Polarity BI [facility] Scott RV Pacing Pulse Width (ms) 0.4 ms [facility] Scott RV Sensing Amplitude (mvolts) 0.3 mV [facility] Scott RV Sensing Blanking Period (ms) 200 ms [facility] Scott RV Sensing Polarity BI [facility] Detection Configuration (Vent) 2 - Zone [facility] FastVT_Detection Interval 450 ms [facility] FastVT_Therapy Configuration 2 ATP(s) + 0 Shock(s) [facility] ICD AFIB DetectionStatus DISABLED [facility] ICD ATAF DetectionInterval ms 450 ms [facility] ICD ATAF DetectionStatus ENABLED [facility] ICD ATAF TherapyConfiguration 2 ATP(s) + 0 Shock(s) [facility] ICD FastVT DetectionStatus ENABLED [facility] ICD-ADLRATE_BPM 85 {beats}/min [facility] ICD-AMS EPISODES 133 {beats}/min [facility] ICD-ATP Episodes (Vent) 0 [facility] ICD-ATRIALFIBRILLATION 0 Cl [facility] ICD-Counters Cleared Date 09/23/2016 [facility] ICD-Device Mfg MDT [facility] ICD-LEADIMPEDANCEATRIA L 342 ohm [facility] ICD-Percent Pacing (Atrial) 80.04 % [facility] ICD-Percent Pacing (Vent) 89.35 % [facility] ICD-PMT Intervention ENABLED [facility] ICD-PVC Intervention ENABLED [facility] ICD-Rate Modulation Acceleration Reaction 30 s [facility] ICD-Rate Modulation Deceleration Exercise [facility] ICD-Rate Modulation Morris 3 [facility] ICD-Rate Modulation Threshold MediumHigh [facility] ICD-Shocks Aborted (Vent) 0 [facility] [id number] 0 [facility] ICD-SHOCKSABORTED 0 [facility] ICD-SHOCKSDELIVEREDVEN TRICULAR 0 [facility] ICD-Ventricular Fibrillation 0 [facility] Implant Date 07/03/2005 [facility] Implant Date 11/30/2002 [facility] Lead Impedance (LV) 4047 ohm [facility] Lead Impedance (RV) 760 ohm [facility] Lead Impedance High Voltage 63 ohm [facility] Lead1 Mfg MDT [facility] Lead2 Mfg MDT [facility] Lead3 Mfg GDT [facility] Location LV [facility] Location RA [facility] Location RV [facility] Lower Rate (bpm) 80 {beats}/min [facility] LV PACING % 0 % [facility] Max Sensor Rate (bpm) 90 {beats}/min [facility] MDT_PROG_TACHY_ZONE_DE TECTIONS_STATUS ENABLED [facility] Model [id number] Viva XT [place] AGRICULTURAL AGENT-D [facility] Model 4196 Attain Ability MRI SureScan [facility] Model 5076 CapSureFix Novus [facility] Model 0144 Endotak Endurance Rx [facility] Pacing Mode DDDR [facility] Serial Number [id number] [facility] Serial Number [id number] [facility] Serial Number [id number] [facility] Serial Number [id number] [facility] Test Charge Energy [facility] Test Charge Time 5.145 [facility] Therapy Status (Vent) Enabled [facility] Thresh RA Capture Amplitude (volts) 0.625 V [facility] Thresh RA Capture Duration (ms) 0.4 ms [facility] Thresh RA Sensing Amplitude (mvolts) 2.375 mV [facility] Thresh RV Capture Amplitude (VOLTS) 1.125 V [facility] Thresh RV Capture Duration (MS) 0.4 ms [facility] Thresh RV Sensing Amplitude (MVOLTS) 8.75 mV [facility] Tracking Rate (bpm) 90 {beats}/min [facility] VF Zone Detection Interval 450 ms [facility] VF Zone Therapy Configuration 2 ATP(s) + 0 Shock(s) [facility] No Panel Informationon 04-09 [facility] _ [facility] ICD-ATRIALTACHYCARDIA 0 [facility] ICD-Fast Ventricular Tachycardia 0 [facility] Implant Date 09/23/2016 [facility] BLANK _ [facility] ICD-ATRIALTACHYCARDIA 0 [facility] ICD-Fast Ventricular Tachycardia 0 [facility] Implant Date 09/23/2016 [facility] ICD REMOTE CHECKon 3 AV Delay Adaptive Paced Minimum (ms) 350 ms [facility] AV Delay Adaptive Rate Maximum (bpm) 90 {beats}/min [facility] AV Delay Adaptive Rate Minimum (bpm) 75 {beats}/min [facility] AV Delay Adaptive Sensed Minimum (ms) 250 ms [facility] AV Delay Adaptive Status ENABLED [facility] AV Delay Paced (ms) 100 ms [facility] AV Delay Sensed (ms) [address] [facility] Battery Voltage 2.79 V [facility] Scott RA Pacing Amplitude (volts) 2 V [facility] Scott RA Pacing Polarity BI [facility] Scott RA Pacing Pulse Width (ms) 0.4 ms [facility] Scott RA Sensing Amplitude (mvolts) 0.3 mV [facility] Scott RA Sensing Blanking Period (ms) 150 ms [facility] Scott RA Sensing Polarity BI [facility] Scott RA Sensing Refractory Period (ms) 250 ms [facility] Scott RV Pacing Amplitude (volts) 3 V [facility] Scott RV Pacing Polarity BI [facility] Scott RV Pacing Pulse Width (ms) 0.4 ms [facility] Scott RV Sensing Amplitude (mvolts) 0.3 mV [facility] Scott RV Sensing Blanking Period (ms) 200 ms [facility] Scott RV Sensing Polarity BI [facility] Detection Configuration (Vent) 2 - Zone [facility] FastVT_Detection Interval 450 ms [facility] FastVT_Therapy Configuration 2 ATP(s) + 0 Shock(s) [facility] ICD AFIB DetectionStatus DISABLED [facility] ICD ATAF DetectionInterval ms 450 ms [facility] ICD ATAF DetectionStatus ENABLED [facility] ICD ATAF TherapyConfiguration 2 ATP(s) + 0 Shock(s) [facility] ICD FastVT DetectionStatus ENABLED [facility] ICD-ADLRATE_BPM 85 {beats}/min [facility] ICD-AMS EPISODES 133 {beats}/min [facility] ICD-ATP Episodes (Vent) 0 [facility] ICD-ATRIALFIBRILLATION 0 Cl [facility] ICD-Counters Cleared Date 09/23/2016 [facility] ICD-Device Mfg MDT [facility] ICD-LEADIMPEDANCEATRIA L 342 ohm [facility] ICD-Percent Pacing (Atrial) 81.31 % [facility] ICD-Percent Pacing (Vent) 99.41 % [facility] ICD-PMT Intervention ENABLED [facility] ICD-PVC Intervention ENABLED [facility] ICD-Rate Modulation Acceleration Reaction 30 s [facility] ICD-Rate Modulation Deceleration Exercise [facility] ICD-Rate Modulation Morris 3 [facility] ICD-Rate Modulation Threshold MediumHigh [facility] ICD-Shocks Aborted (Vent) 0 [facility] [id number] 0 [facility] ICD-SHOCKSABORTED 0 [facility] ICD-SHOCKSDELIVEREDVEN TRICULAR 0 [facility] ICD-Ventricular Fibrillation 0 [facility] Implant Date 07/03/2005 [facility] Implant Date 11/30/2002 [facility] Lead Impedance (LV) 4047 ohm [facility] Lead Impedance (RV) 722 ohm [facility] Lead Impedance High Voltage 61 ohm [facility] Lead1 Mfg MDT [facility] Lead2 Mfg MDT [facility] Lead3 Mfg GDT [facility] Location LV [facility] Location RA [facility] Location RV [facility] Lower Rate (bpm) 80 {beats}/min [facility] LV PACING % 0 % [facility] Max Sensor Rate (bpm) 90 {beats}/min [facility] MDT_PROG_TACHY_ZONE_DE TECTIONS_STATUS ENABLED [facility] Model [id number] Viva XT [place] AGRICULTURAL AGENT-D [facility] Model 4196 Attain Ability MRI SureScan [facility] Model 5076 CapSureFix Nov[employer] [facility] Model 0144 [employer] Endurance Rx [facility] Pacing Mode DDDR [facility] Serial Number [id number] [facility] Serial Number [id number] [facility] Serial Number [id number] [facility] Serial Number [id number] [facility] Test Charge Energy [facility] Test Charge Time 5.145 [facility] Therapy Status (Vent) Enabled [facility] Thresh RA Capture Amplitude (volts) 0.625 V [facility] Thresh RA Capture Duration (ms) 0.4 ms [facility] Thresh RA Sensing Amplitude (mvolts) 3 mV [facility] Thresh RV Capture Amplitude (VOLTS) 1.25 V [facility] Thresh RV Capture Duration (MS) 0.4 ms [facility] Thresh RV Sensing Amplitude (MVOLTS) 8.75 mV [facility] Tracking Rate (bpm) 90 {beats}/min [facility] VF Zone Detection Interval 450 ms [facility] VF Zone Therapy Configuration 2 ATP(s) + 0 Shock(s) [facility] AV Delay Adaptive Paced Minimum (ms) 350 ms [facility] AV Delay Adaptive Rate Maximum (bpm) 90 {beats}/min [facility] AV Delay Adaptive Rate Minimum (bpm) 75 {beats}/min [facility] AV Delay Adaptive Sensed Minimum (ms) 250 ms [facility] AV Delay Adaptive Status ENABLED [facility] AV Delay Paced (ms) 100 ms [facility] AV Delay Sensed (ms) [address] [facility] Battery Voltage 2.79 V [facility] Scott RA Pacing Amplitude (volts) 2 V [facility] Scott RA Pacing Polarity BI [facility] Scott RA Pacing Pulse Width (ms) 0.4 ms [facility] Scott RA Sensing Amplitude (mvolts) 0.3 mV [facility] Scott RA Sensing Blanking Period (ms) 150 ms [facility] Scott RA Sensing Polarity BI [facility] Scott RA Sensing Refractory Period (ms) 250 ms [facility] Scott RV Pacing Amplitude (volts) 2.75 V [facility] Scott RV Pacing Polarity BI [facility] Scott RV Pacing Pulse Width (ms) 0.4 ms [facility] Scott RV Sensing Amplitude (mvolts) 0.3 mV [facility] Scott RV Sensing Blanking Period (ms) 200 ms [facility] Scott RV Sensing Polarity BI [facility] Detection Configuration (Vent) 2 - Zone [facility] FastVT_Detection Interval 450 ms [facility] FastVT_Therapy Configuration 2 ATP(s) + 0 Shock(s) [facility] ICD AFIB DetectionStatus DISABLED [facility] ICD ATAF DetectionInterval ms 450 ms [facility] ICD ATAF DetectionStatus ENABLED [facility] ICD ATAF TherapyConfiguration 2 ATP(s) + 0 Shock(s) [facility] ICD FastVT DetectionStatus ENABLED [facility] ICD-ADLRATE_BPM 85 {beats}/min [facility] ICD-AMS EPISODES 133 {beats}/min [facility] ICD-ATP Episodes (Vent) 0 [facility] ICD-ATRIALFIBRILLATION 0 Cl [facility] ICD-Counters Cleared Date 09/23/2016 [facility] ICD-Device Mfg MDT [facility] ICD-LEADIMPEDANCEATRIA L 342 ohm [facility] ICD-Percent Pacing (Atrial) 99.2 % [facility] ICD-Percent Pacing (Vent) 99.87 % [facility] ICD-PMT Intervention ENABLED [facility] ICD-PVC Intervention ENABLED [facility] ICD-Rate Modulation Acceleration Reaction 30 s [facility] ICD-Rate Modulation Deceleration Exercise [facility] ICD-Rate Modulation Morris 3 [facility] ICD-Rate Modulation Threshold MediumHigh [facility] ICD-Shocks Aborted (Vent) 0 [facility] [id number] 0 [facility] ICD-SHOCKSABORTED 0 [facility] ICD-SHOCKSDELIVEREDVEN TRICULAR 0 [facility] ICD-Ventricular Fibrillation 0 [facility] Implant Date 07/03/2005 [facility] Implant Date 11/30/2002 [facility] Lead Impedance (LV) 4047 ohm [facility] Lead Impedance (RV) 722 ohm [facility] Lead Impedance High Voltage 62 ohm [facility] Lead1 Mfg MDT [facility] Lead2 Mfg MDT [facility] Lead3 Mfg GDT [facility] Location LV [facility] Location RA [facility] Location RV [facility] Lower Rate (bpm) 80 {beats}/min [facility] LV PACING % 0 % [facility] Max Sensor Rate (bpm) 90 {beats}/min [facility] MDT_PROG_TACHY_ZONE_DE TECTIONS_STATUS ENABLED [facility] Model [id number] Viva XT [place] AGRIC[place] AGENT-D [facility] Model 4196 Attain Ability MRI SureScan [facility] Model 5076 CapSureFix Novus [facility] Model 0144 Endotak Endurance Rx [facility] Pacing Mode DDDR [facility] Serial Number [id number] [facility] Serial Number [id number] [facility] Serial Number [id number] [facility] Serial Number [id number] [facility] Test Charge Energy [facility] Test Charge Time 5.145 [facility] Therapy Status (Vent) Enabled [facility] Thresh RA Capture Amplitude (volts) 0.625 V [facility] Thresh RA Capture Duration (ms) 0.4 ms [facility] Thresh RA Sensing Amplitude (mvolts) 2.25 mV [facility] Thresh RV Capture Amplitude (VOLTS) 1.375 V [facility] Thresh RV Capture Duration (MS) 0.4 ms [facility] Thresh RV Sensing Amplitude (MVOLTS) 8.125 mV [facility] Tracking Rate (bpm) 90 {beats}/min [facility] VF Zone Detection Interval 450 ms [facility] VF Zone Therapy Configuration 2 ATP(s) + 0 Shock(s) [facility] No Panel Informationon 03-29 BLANK _ [facility] ICD-ATRIALTACHYCARDIA 0 [facility] ICD-Fast Ventricular Tachycardia 0 [facility] Implant Date 09/23/2016 [facility] BLANK _ [facility] ICD-ATRIALTACHYCARDIA 0 [facility] ICD-Fast Ventricular Tachycardia 0 [facility] Implant Date 09/23/2016 [facility] ICD REMOTE CHECKon 3 AV Delay Adaptive Paced Minimum (ms) 350 ms [facility] AV Delay Adaptive Rate Maximum (bpm) 90 {beats}/min [facility] AV Delay Adaptive Rate Minimum (bpm) 75 {beats}/min [facility] AV Delay Adaptive Sensed Minimum (ms) 250 ms [facility] AV Delay Adaptive Status ENABLED [facility] AV Delay Paced (ms) 100 ms [facility] AV Delay Sensed (ms) [address] [facility] Battery Voltage 2.79 V [facility] Scott RA Pacing Amplitude (volts) 2 V [facility] Scott RA Pacing Polarity BI [facility] Scott RA Pacing Pulse Width (ms) 0.4 ms [facility] Scott RA Sensing Amplitude (mvolts) 0.3 mV [facility] Scott RA Sensing Blanking Period (ms) 150 ms [facility] Scott RA Sensing Polarity BI [facility] Scott RA Sensing Refractory Period (ms) 250 ms [facility] Scott RV Pacing Amplitude (volts) 2.75 V [facility] Scott RV Pacing Polarity BI [facility] Scott RV Pacing Pulse Width (ms) 0.4 ms [facility] Scott RV Sensing Amplitude (mvolts) 0.3 mV [facility] Scott RV Sensing Blanking Period (ms) 200 ms [facility] Scott RV Sensing Polarity BI [facility] Detection Configuration (Vent) 2 - Zone [facility] FastVT_Detection Interval 450 ms [facility] FastVT_Therapy Configuration 2 ATP(s) + 0 Shock(s) [facility] ICD AFIB DetectionStatus DISABLED [facility] ICD ATAF DetectionInterval ms 450 ms [facility] ICD ATAF DetectionStatus ENABLED [facility] ICD ATAF TherapyConfiguration 2 ATP(s) + 0 Shock(s) [facility] ICD FastVT DetectionStatus ENABLED [facility] ICD-ADLRATE_BPM 85 {beats}/min [facility] ICD-AMS EPISODES 133 {beats}/min [facility] ICD-ATP Episodes (Vent) 0 [facility] ICD-ATRIALFIBRILLATION 0 Cl [facility] ICD-Counters Cleared Date 09/23/2016 [facility] ICD-Device Mfg MDT [facility] ICD-LEADIMPEDANCEATRIA L 342 ohm [facility] ICD-Percent Pacing (Atrial) 99.95 % [facility] ICD-Percent Pacing (Vent) 99.97 % [facility] ICD-PMT Intervention ENABLED [facility] ICD-PVC Intervention ENABLED [facility] ICD-Rate Modulation Acceleration Reaction 30 s [facility] ICD-Rate Modulation Deceleration Exercise [facility] ICD-Rate Modulation Morris 3 [facility] ICD-Rate Modulation Threshold MediumHigh [facility] ICD-Shocks Aborted (Vent) 0 [facility] [id number] [address] [facility] ICD-SHOCKSABORTED 0 [facility] ICD-SHOCKSDELIVEREDVEN TRICULAR 0 [facility] ICD-Ventricular Fibrillation 0 [facility] Implant Date 07/03/2005 [facility] Implant Date 11/30/2002 [facility] Lead Impedance (LV) 4047 ohm [facility] Lead Impedance (RV) 760 ohm [facility] Lead Impedance High Voltage 59 ohm [facility] Lead1 Mfg MDT [facility] Lead2 Mfg MDT [facility] Lead3 Mfg GDT [facility] Location LV [facility] Location RA [facility] Location RV [facility] Lower Rate (bpm) 80 {beats}/min [facility] LV PACING % 0 % [facility] Max Sensor Rate (bpm) 90 {beats}/min [facility] MDT_PROG_TACHY_ZONE_DE TECTIONS_STATUS ENABLED [facility] Model [id number] Viva XT [place] AGRIC[place] AGENT-D [facility] Model 4196 Attain Ability MRI SureScan [facility] Model 5076 CapSureFix Novus [facility] Model 0144 Endotak Endurance Rx [facility] Pacing Mode DDDR [facility] Serial Number [id number] [facility] Serial Number [id number] [facility] Serial Number [id number] [facility] Serial Number [id number] [facility] Test Charge Energy [facility] Test Charge Time 5.145 [facility] Therapy Status (Vent) Enabled [facility] Thresh RA Capture Amplitude (volts) 0.625 V [facility] Thresh RA Capture Duration (ms) 0.4 ms [facility] Thresh RA Sensing Amplitude (mvolts) 2.875 mV [facility] Thresh RV Capture Amplitude (VOLTS) 1.375 V [facility] Thresh RV Capture Duration (MS) 0.4 ms [facility] Thresh RV Sensing Amplitude (MVOLTS) 11 mV [facility] Tracking Rate (bpm) 90 {beats}/min [facility] VF Zone Detection Interval 450 ms [facility] VF Zone Therapy Configuration 2 ATP(s) + 0 Shock(s) [facility] AV Delay Adaptive Paced Minimum (ms) 350 ms [facility] AV Delay Adaptive Rate Maximum (bpm) 90 {beats}/min [facility] AV Delay Adaptive Rate Minimum (bpm) 75 {beats}/min [facility] AV Delay Adaptive Sensed Minimum (ms) 250 ms [facility] AV Delay Adaptive Status ENABLED [facility] AV Delay Paced (ms) 100 ms [facility] AV Delay Sensed (ms) [address] [facility] Battery Voltage 2.78 V [facility] Scott RA Pacing Amplitude (volts) 2 V [facility] Scott RA Pacing Polarity BI [facility] Scott RA Pacing Pulse Width (ms) 0.4 ms [facility] Scott RA Sensing Amplitude (mvolts) 0.3 mV [facility] Scott RA Sensing Blanking Period (ms) 150 ms [facility] Scott RA Sensing Polarity BI [facility] Scott RA Sensing Refractory Period (ms) 250 ms [facility] Scott RV Pacing Amplitude (volts) 2.75 V [facility] Scott RV Pacing Polarity BI [facility] Scott RV Pacing Pulse Width (ms) 0.4 ms [facility] Scott RV Sensing Amplitude (mvolts) 0.3 mV [facility] Scott RV Sensing Blanking Period (ms) 200 ms [facility] Scott RV Sensing Polarity BI [facility] Detection Configuration (Vent) 2 - Zone [facility] FastVT_Detection Interval 450 ms [facility] FastVT_Therapy Configuration 2 ATP(s) + 0 Shock(s) [facility] ICD AFIB DetectionStatus DISABLED [facility] ICD ATAF DetectionInterval ms 450 ms [facility] ICD ATAF DetectionStatus ENABLED [facility] ICD ATAF TherapyConfiguration 2 ATP(s) + 0 Shock(s) [facility] ICD FastVT DetectionStatus ENABLED [facility] ICD-ADLRATE_BPM 85 {beats}/min [facility] ICD-AMS EPISODES 133 {beats}/min [facility] ICD-ATP Episodes (Vent) 0 [facility] ICD-ATRIALFIBRILLATION 0 Cl [facility] ICD-Counters Cleared Date 09/23/2016 [facility] ICD-Device Mfg MDT [facility] ICD-LEADIMPEDANCEATRIA L 361 ohm [facility] ICD-Percent Pacing (Atrial) 98.5 % [facility] ICD-Percent Pacing (Vent) 99.69 % [facility] ICD-PMT Intervention ENABLED [facility] ICD-PVC Intervention ENABLED [facility] ICD-Rate Modulation Acceleration Reaction 30 s [facility] ICD-Rate Modulation Deceleration Exercise [facility] ICD-Rate Modulation Morris 3 [facility] ICD-Rate Modulation Threshold MediumHigh [facility] ICD-Shocks Aborted (Vent) 0 [facility] [id number] 0 [facility] ICD-SHOCKSABORTED 0 [facility] ICD-SHOCKSDELIVEREDVEN TRICULAR 0 [facility] ICD-Ventricular Fibrillation 0 [facility] Implant Date 07/03/2005 [facility] Implant Date 11/30/2002 [facility] Lead Impedance (LV) 4047 ohm [facility] Lead Impedance (RV) 760 ohm [facility] Lead Impedance High Voltage 62 ohm [facility] Lead1 Mfg MDT [facility] Lead2 Mfg MDT [facility] Lead3 Mfg GDT [facility] Location LV [facility] Location RA [facility] Location RV [facility] Lower Rate (bpm) 80 {beats}/min [facility] LV PACING % 0 % [facility] Max Sensor Rate (bpm) 90 {beats}/min [facility] MDT_PROG_TACHY_ZONE_DE TECTIONS_STATUS ENABLED [facility] Model [id number] Viva XT [place] AGRIC[place] AGENT-D [facility] Model 4196 Attain Ability MRI SureScan [facility] Model 5076 CapSureFix Novus [facility] Model 0144 Endotak Endurance Rx [facility] Pacing Mode DDDR [facility] Serial Number [id number] [facility] Serial Number [id number] [facility] Serial Number [id number] [facility] Serial Number [id number] [facility] Test Charge Energy [facility] Test Charge Time 5.145 [facility] Therapy Status (Vent) Enabled [facility] Thresh RA Capture Amplitude (volts) 0.625 V [facility] Thresh RA Capture Duration (ms) 0.4 ms [facility] Thresh RA Sensing Amplitude (mvolts) 2.875 mV [facility] Thresh RV Capture Amplitude (VOLTS) 1.375 V [facility] Thresh RV Capture Duration (MS) 0.4 ms [facility] Thresh RV Sensing Amplitude (MVOLTS) 13.25 mV [facility] Tracking Rate (bpm) 90 {beats}/min C [facility] VF Zone Detection Interval 450 ms [facility] VF Zone Therapy Configuration 2 ATP(s) + 0 Shock(s) [facility] No Panel Informationon 03-05 BLANK _ [facility] ICD-ATRIALTACHYCARDIA 0 [facility] ICD-Fast Ventricular Tachycardia 0 [facility] Implant Date 09/23/2016 [facility] BLANK _ [facility] ICD-ATRIALTACHYCARDIA 0 [facility] ICD-Fast Ventricular Tachycardia 0 [facility] Implant Date 09/23/2016 [facility] XR CSPINE 2_3 VIEWSon 2022 XR [...] IMPRESSION: Moderate degenerative change Electronically authenticated by: MIGNON ALEJO Date: 2023-01-27 10:58 Normal [facility] PROTIMEon 01-03-2023 INR Coag (PPP) [Relative time] 0.98 {INR} Normal [facility] Comment on above: Performed By: #### P T ####[facility] [id number] [place] [id number] Helm INR GUIDELINES SEE BELOW Normal [facility] Comment on above: Result Comment: POOJA RED INR: 2.0 - 3.0 CONDITIONS NOT LISTED BELOW 2.5 - 3.5 FOR PROSTHETIC HEART VALVE REPLACEMENT 2.5 - 3.5 RECURRENT THROMBOSIS Performed By: #### P T ####[facility] [id number] [place], [place] [address]Et. Melissa Helm PT Coag (PPP) [Time] 10.4 s Normal 9.0-11.6 [facility] Comment on above: Performed By: #### P T ####[facility] [id number] [place], [place] [address]Mv. Melissa Helm XR SHOULDER RT 2V or [...] FAUSTO GONCALVES Date: 2023-01-03 13:54 Normal [facility] ICD REMOTE CHECKon 3 AV Delay Adaptive Paced Minimum (ms) 350 ms [facility] AV Delay Adaptive Rate Maximum (bpm) 90 {beats}/min [facility] AV Delay Adaptive Rate Minimum (bpm) 75 {beats}/min [facility] AV Delay Adaptive Sensed Minimum (ms) 250 ms [facility] AV Delay Adaptive Status ENABLED [facility] AV Delay Paced (ms) 100 ms [facility] AV Delay Sensed (ms) [address] [facility] Battery Voltage 2.81 V [facility] Scott RA Pacing Amplitude (volts) 2 V [facility] Scott RA Pacing Polarity BI [facility] Scott RA Pacing Pulse Width (ms) 0.4 ms [facility] Scott RA Sensing Amplitude (mvolts) 0.3 mV [facility] Scott RA Sensing Blanking Period (ms) 150 ms [facility] Scott RA Sensing Polarity BI [facility] Scott RA Sensing Refractory Period (ms) 250 ms [facility] Scott RV Pacing Amplitude (volts) 2.75 V [facility] Scott RV Pacing Polarity BI [facility] Scott RV Pacing Pulse Width (ms) 0.4 ms [facility] Scott RV Sensing Amplitude (mvolts) 0.3 mV [facility] Scott RV Sensing Blanking Period (ms) 200 ms [facility] Scott RV Sensing Polarity BI [facility] Detection Configuration (Vent) 2 - Zone [facility] FastVT_Detection Interval 450 ms [facility] FastVT_Therapy Configuration 2 ATP(s) + 0 Shock(s) [facility] ICD AFIB DetectionStatus DISABLED [facility] ICD ATAF DetectionInterval ms 450 ms [facility] ICD ATAF DetectionStatus ENABLED [facility] ICD ATAF TherapyConfiguration 2 ATP(s) + 0 Shock(s) [facility] ICD FastVT DetectionStatus ENABLED [facility] ICD-ADLRATE_BPM 85 {beats}/min [facility] ICD-AMS EPISODES 133 {beats}/min [facility] ICD-ATP Episodes (Vent) 0 [facility] ICD-ATRIALFIBRILLATION 0 Cl [facility] ICD-Counters Cleared Date 09/23/2016 [facility] ICD-Device Emilyg RENATO [facility] ICD-LEADIMPEDANCEATRIA L 342 ohm [facility] ICD-Percent Pacing (Atrial) 99.28 % [facility] ICD-Percent Pacing (Vent) 99.57 % [facility] ICD-PMT Intervention ENABLED [facility] [facility] ICD-PVC Intervention ENABLED [facility] ICD-Rate Modulation Acceleration Reaction 30 s [facility] ICD-Rate Modulation Deceleration Exercise [facility] ICD-Rate Modulation Morris 3 [facility] ICD-Rate Modulation Threshold MediumHigh [facility] ICD-Shocks Aborted (Vent) 0 [facility] [id number] 0 [facility] ICD-SHOCKSABORTED 0 [facility] ICD-SHOCKSDELIVEREDVEN TRICULAR 0 [facility] ICD-Ventricular Fibrillation 0 [facility] Implant Date 07/03/2005 [facility] Implant Date 11/30/2002 [facility] Lead Impedance (LV) 4047 ohm [facility] Lead Impedance (RV) 722 ohm [facility] Lead Impedance High Voltage 64 ohm [facility] Lead1 Mfg MDT [facility] Lead2 Emilyg MDT [facility] Lead3 Mfg GDT [facility] Location LV [facility] Location RA [facility] Location RV [facility] Lower Rate (bpm) 80 {beats}/min [facility] LV PACING % 0 % [facility] Max Sensor Rate (bpm) 90 {beats}/min [facility] MDBarrington_PROG_TACHY_ZONE_DE TECTIONS_STATUS ENABLED [facility] Model [id number] Viva XT [place] AGRICULTURAL AGENT-D [facility] Model 4196 Attain Ability MRI SureScan [facility] Model 5076 CapSureFix Novus [facility] Model 0144 [employer] Endurance Rx [facility] Pacing Mode DDDR [facility] Serial Number [id number] [facility] Serial Number [id number] [facility] Serial Number [id number] [facility] Serial Number [id number] [facility] Test Charge Energy [facility] Test Charge Time 4.834 [facility] Therapy Status (Vent) Enabled [facility] Thresh RA Capture Amplitude (volts) 0.625 V [facility] Thresh RA Capture Duration (ms) 0.4 ms [facility] Thresh RA Sensing Amplitude (mvolts) 2 mV [facility] Thresh RV Capture Amplitude (VOLTS) 1.375 V [facility] Thresh RV Capture Duration (MS) 0.4 ms [facility] Thresh RV Sensing Amplitude (MVOLTS) 7.5 mV [facility] Tracking Rate (bpm) 90 {beats}/min C [facility] VF Zone Detection Interval 450 ms [facility] VF Zone Therapy Configuration 2 ATP(s) + 0 Shock(s) [facility] No Panel Informationon 11-28 BLANK _ [facility] ICD-ATRIALTACHYCARDIA 0 [facility] ICD-Fast Ventricular Tachycardia 0 [facility] Implant Date 09/23/2016 [facility] NM BONE IMAGE 3 PHASEon - NM BONE IMAGE 3 PHASE EXAMINATION: NM [...] by: JC BRAVO Date: 2022-10-26 13:35 Normal [facility] TRANSFERRINon 10-07-2022 Transferrin [Mass/Vol] 354 mg/dL Normal 192-364 Th e [facility] Comment on above: Performed By: #### T RANSFR #### [facility] [address] [place] [address] Dr. Melissa Helm CBC AUTO DIFFon 10-06-2022 BASO # 0.1 103/ul Normal 0.0-0.1 [facility] Comment on above: Performed By: #### C BC #### [facility] [address] [place] [address] Dr. Melissa Helm Basophils/100 WBC (Bld) 0.9 % Normal 0.2-2.0 [facility] Comment on above: Performed By: #### C BC #### [facility] [address] [place] [address] Dr. Melissa Helm EO # 0.4 103/ul Normal 0.0-0.7 [facility] Comment on above: Performed By: #### C BC #### [facility] [address] [place] [address] Dr. Melissa Helm Eosinophils/100 WBC (Bld) 2.7 % Normal 0.9-7.0 [facility] Comment on above: Performed By: #### C BC #### [facility] [address] [place] [address] Dr. Melissa Helm Erythrocyte distribution width (RBC) [Ratio] 20.8 % Critically high 11.0-15.0 [facility] Comment on above: Performed By: #### C BC #### [facility] [address] [place] [address] Dr. Melissa Helm Hematocrit (Bld) [Volume fraction] 38.3 % Normal 36.0-48.0 [facility] Comment on above: Performed By: #### C BC #### [facility] [address] [place] [address] Dr. Melissa Helm Hemoglobin (Bld) [Mass/Vol] 10.8 g/dL Critically low 12.0-16.0 [facility] Comment on above: Performed By: #### C BC #### [facility] [address] [place] [address] Dr. Melissa Helm IG # 0.07 10e3/ul Critically high 0.00-0.03 [facility] Comment on above: Performed By: #### C BC #### [facility] [address] [place] [address] Dr. Melissa Helm IG % 0.5 % Normal 0.0-0.5 [facility] Comment on above: Performed By: #### C BC #### [facility] [address] [place] [address] Dr. Melissa Helm LYMPH # 2.2 103/ul Normal 1.2-3.8 [facility] Comment on above: Performed By: #### C BC #### [facility] [address] [place] [address] Dr. Melissa Helm Lymphocytes/100 WBC (Bld) 17.5 % Critically low 20.5-60.0 [facility] Comment on above: Performed By: #### C BC #### [facility] [address] [place] [address] Dr. Melissa Helm MANUAL DIFF REQ NO Normal [facility] Comment on above: Performed By: #### C BC #### [facility] [address] [place] [address] Dr. Melissa Helm MCH (RBC) [Entitic mass] 20.6 pg Critically low 26.7-34.0 [facility] Comment on above: Performed By: #### C BC #### [facility] [address] [place] [address] Dr. Melissa Helm MCHC (RBC) [Mass/Vol] 28.2 g/dL Critically low 29.9-35.2 [facility] Comment on above: Performed By: #### C BC #### [facility] [address] [place] [address] Dr. Melissa Helm MCV (RBC) [Entitic vol] 73.0 fL Critically low 81.0-99.0 [facility] Comment on above: Performed By: #### C BC #### [facility] [address] [place] [address] Dr. Melissa Helm MONO # 1.2 103/ul Critically high 0.3-0.8 [facility] Comment on above: Performed By: #### C BC #### [facility] [address] [place] [address] Dr. Melissa Helm Monocytes/100 WBC (Bld) 9.0 % Normal 1.7-12.0 [facility] Comment on above: Performed By: #### C BC #### [facility] [address] [place] [address] Dr. Melissa Hlem NEUT # 8.9 103/ul Critically high 1.4-6.5 [facility] Comment on above: Performed By: #### C BC #### [facility] [address] [place] [address] Dr. Melissa Helm Neutrophils/100 WBC (Bld) 69.4 % Normal 43.0-75.0 [facility] Comment on above: Performed By: #### C BC #### [facility] [address] [place] [address] Dr. Melissa Helm PLT 184 103/ul Normal 150-450 [facility] Comment on above: Performed By: #### C BC #### [facility] [address] [place] [address] Dr. Melissa Helm RBC 5.25 106/ul Normal 4.20-5.40 [facility] Comment on above: Performed By: #### C BC #### [facility] [address] [place] [address] Dr. Melissa Helm WBC 12.8 103/ul Critically high 4.0-11.0 [facility] Comment on above: Performed By: #### C BC #### [facility] [address] [place] [address] Dr. Melissa Helm FERRITINon 10-06-2022 Ferritin [Mass/Vol] 33.0 ng/mL Normal 8.0-252.0 [facility] Comment on above: Performed By: #### F ERR, FETIBC #### [facility] [address] [place] [address] Dr. Melissa Helm IRON AND TIBCon 10-06-2022 % SATURATION 20.3 % Normal [facility] Comment on above: Performed By: #### F ERR, FETIBC #### [facility] [address] [address] [address] Melissa Helm Iron [Mass/Vol] 89.0 ug/dL Normal 50.0-170.0 [facility] Comment on above: Performed By: #### F ERR, FETIBC #### [facility] [address] [address] [address] Melissa Helm TIBC DIRECT 438.0 ug/dL Normal 250.0-450. 0 [facility] Comment on above: Performed By: #### F ERR, FETIBC #### [facility] [address] [address] [address] Melissa Juárez 09-11-2022 CNPN Telephone (CARDMN) ----- ESSENCE VINCENT ([id number]) 1970 F Date Time Provider Department 09/11/22 [...] by: PATIENT Jameel Mcmahon, PharmD asa LD 07-04-12 Problem List As Of Date 09/11/2022 Noted Resolved Urinary tract infection of [P39.3] 07/26/2004 07/23/2020 Fitting and adjustment of orthopedic device [Z4*04/29/2010 07/23/2020 CAD (coronary artery disease) [I25.10] Remote STEMI (1998) [I21.3] 07/23/2020 Cardiogenic shock (HCC) [R57.0] 07/23/2020 Heart failure, systolic, acute on chronic (HCC)* 07/23/2020 Heart failure, systolic and diastolic, chronic * MR (mitral regurgitation) [I34.0] 07/16/2012 Pulmonary hypertension [I27.20] Dual chamber [place] AGRICULTURAL AGENT-D [Z95.810] 07/23/2020 Primary hypertension [I10] Nicotine use disorder [F17.200] Exercise-induced asthma [J45.990] Anemia [D64.9] 10/29/2011 07/23/2020 H/o GERD [K21.9] 07/23/2020 Migraines [G43.909] H/o Depression/Anxiety/Sleep disturbance [F32.* Preop testing [Z01.818] 07/08/2012 07/23/2020 SUMMARY [V999.95] 07/11/2012 07/23/2020 Pulmonary hypertension, moderate to severe (HCC*2012 Other acute postoperative pain [G89.18] 07/13/2012 07/16/2012 Pulmonary insuff [OAW5042] 07/13/2012 07/23/2020 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 [...] failure (HCC) [I50.9] 03/11/2021 Encounter Status:Closed by DIANE BRANDT on 09/11/22 Normal [facility] ICD REMOTE CHECKon 2 AV Delay Adaptive Paced Minimum (ms) 350 ms [facility] AV Delay Adaptive Rate Maximum (bpm) 90 {beats}/min [facility] AV Delay Adaptive Rate Minimum (bpm) 75 {beats}/min [facility] AV Delay Adaptive Sensed Minimum (ms) 250 ms [facility] AV Delay Adaptive Status ENABLED [facility] AV Delay Paced (ms) 100 ms [facility] AV Delay Sensed (ms) [address] [facility] Battery Voltage 2.85 V [facility] Scott RA Pacing Amplitude (volts) 2 V [facility] Scott RA Pacing Polarity BI [facility] Scott RA Pacing Pulse Width (ms) 0.4 ms [facility] Scott RA Sensing Amplitude (mvolts) 0.3 mV [facility] Scott RA Sensing Blanking Period (ms) 150 ms [facility] Scott RA Sensing Polarity BI [facility] Scott RA Sensing Refractory Period (ms) 250 ms [facility] Scott RV Pacing Amplitude (volts) 2.5 V [facility] Scott RV Pacing Polarity BI [facility] Scott RV Pacing Pulse Width (ms) 0.4 ms [facility] Scott RV Sensing Amplitude (mvolts) 0.3 mV [facility] Scott RV Sensing Blanking Period (ms) 200 ms [facility] Scott RV Sensing Polarity BI [facility] Detection Configuration (Vent) 2 - Zone [facility] FastVT_Detection Interval 450 ms [facility] FastVT_Therapy Configuration 2 ATP(s) + 0 Shock(s) [facility] ICD AFIB DetectionStatus DISABLED [facility] ICD ATAF DetectionInterval ms 450 ms [facility] ICD ATAF DetectionStatus ENABLED [facility] ICD ATAF TherapyConfiguration 2 ATP(s) + 0 Shock(s) [facility] ICD FastVT DetectionStatus ENABLED [facility] ICD-ADLRATE_BPM 85 {beats}/min [facility] ICD-AMS EPISODES 133 {beats}/min [facility] ICD-ATP Episodes (Vent) 0 [facility] ICD-ATRIALFIBRILLATION 4 Cl [facility] ICD-ATRIALTACHYCARDIA 4 [facility] ICD-Counters Cleared Date 09/23/2016 [facility] ICD-Device Mfg MDT [facility] ICD-LEADIMPEDANCEATRIA L 361 ohm [facility] ICD-Percent Pacing (Atrial) 79.65 % [facility] ICD-Percent Pacing (Vent) 98.96 % [facility] ICD-PMT Intervention ENABLED [facility] ICD-PVC Intervention ENABLED [facility] ICD-Rate Modulation Acceleration Reaction 30 s [facility] ICD-Rate Modulation Deceleration Exercise [facility] ICD-Rate Modulation Morris 3 [facility] ICD-Rate Modulation Threshold MediumHigh [facility] ICD-Shocks Aborted (Vent) 0 [facility] [id number] 0 [facility] ICD-SHOCKSABORTED 0 [facility] ICD-SHOCKSDELIVEREDVEN TRICULAR 0 [facility] ICD-Ventricular Fibrillation 0 [facility] Implant Date 07/03/2005 [facility] Implant Date 11/30/2002 [facility] Lead Impedance (LV) 4047 ohm [facility] Lead Impedance (RV) 722 ohm [facility] Lead Impedance High Voltage 63 ohm [facility] Lead1 Mfg MDT [facility] Lead2 Mfg MDT [facility] Lead3 Mfg GDT [facility] Location LV [facility] Location RA [facility] Location RV [facility] Lower Rate (bpm) 80 {beats}/min [facility] LV PACING % 0 % [facility] Max Sensor Rate (bpm) 90 {beats}/min [facility] MDT_PROG_TACHY_ZONE_DE TECTIONS_STATUS ENABLED [facility] Model [id number] Viva XT [place] A[employer]IC[employer]URAL AGENT-D [facility] Model 4196 Attain Ability MRI SureScan [facility] Model 5076 CapSureFix Novus [facility] Model 0144 [employer] Endurance Rx [facility] Pacing Mode DDDR [facility] Serial Number [id number] [facility] Serial Number [id number] [facility] Serial Number [id number] [facility] Serial Number [id number] [facility] Test Charge Energy [facility] Test Charge Time 4.464 [facility] Therapy Status (Vent) Enabled [facility] Thresh RA Capture Amplitude (volts) 0.625 V [facility] Thresh RA Capture Duration (ms) 0.4 ms [facility] Thresh RA Sensing Amplitude (mvolts) 2.375 mV [facility] Thresh RV Capture Amplitude (VOLTS) 1.25 V [facility] Thresh RV Capture Duration (MS) 0.4 ms [facility] Thresh RV Sensing Amplitude (MVOLTS) 12 mV [facility] Tracking Rate (bpm) 90 {beats}/min C [facility] VF Zone Detection Interval 450 ms [facility] VF Zone Therapy Configuration 2 ATP(s) + 0 Shock(s) [facility] No Panel Informationon 08-25 BLANK _ [facility] ICD-ATRIALTACHYCARDIA 0 [facility] ICD-Fast Ventricular Tachycardia 0 [facility] Implant Date 09/23/2016 [facility] ICD REMOTE CHECKon 2 AV Delay Adaptive Paced Minimum (ms) 350 ms [facility] AV Delay Adaptive Rate Maximum (bpm) 90 {beats}/min [facility] AV Delay Adaptive Rate Minimum (bpm) 75 {beats}/min [facility] AV Delay Adaptive Sensed Minimum (ms) 250 ms [facility] AV Delay Adaptive Status ENABLED [facility] AV Delay Paced (ms) 100 ms [facility] AV Delay Sensed (ms) [address] [facility] Battery Voltage 2.86 V [facility] Scott RA Pacing Amplitude (volts) 2 V [facility] Scott RA Pacing Polarity BI [facility] Scott RA Pacing Pulse Width (ms) 0.4 ms [facility] Scott RA Sensing Amplitude (mvolts) 0.3 mV [facility] Scott RA Sensing Blanking Period (ms) 150 ms [facility] Scott RA Sensing Polarity BI [facility] Scott RA Sensing Refractory Period (ms) 250 ms [facility] Scott RV Pacing Amplitude (volts) 3 V [facility] Scott RV Pacing Polarity BI [facility] Scott RV Pacing Pulse Width (ms) 0.4 ms [facility] Scott RV Sensing Amplitude (mvolts) 0.3 mV [facility] Scott RV Sensing Blanking Period (ms) 200 ms [facility] Scott RV Sensing Polarity BI [facility] Detection Configuration (Vent) 2 - Zone [facility] FastVT_Detection Interval 450 ms [facility] FastVT_Therapy Configuration 2 ATP(s) + 0 Shock(s) [facility] ICD AFIB DetectionStatus DISABLED [facility] ICD ATAF DetectionInterval ms 450 ms [facility] ICD ATAF DetectionStatus ENABLED [facility] ICD ATAF TherapyConfiguration 2 ATP(s) + 0 Shock(s) [facility] ICD FastVT DetectionStatus ENABLED [facility] ICD-ADLRATE_BPM 85 {beats}/min [facility] ICD-AMS EPISODES 133 {beats}/min [facility] ICD-ATP Episodes (Vent) 0 [facility] ICD-ATRIALFIBRILLATION 1 [facility] ICD-ATRIALTACHYCARDIA 1 [facility] ICD-Counters Cleared Date 09/23/2016 [facility] ICD-Device Mfg T [facility] ICD-LEADIMPEDANCEATRIA L 361 ohm [facility] ICD-Percent Pacing (Atrial) 84.32 % [facility] ICD-Percent Pacing (Vent) 99.05 % [facility] ICD-PMT Intervention ENABLED [facility] ICD-PVC Intervention ENABLED [facility] ICD-Rate Modulation Acceleration Reaction 30 s [facility] ICD-Rate Modulation Deceleration Exercise [facility] ICD-Rate Modulation Morris 3 [facility] ICD-Rate Modulation Threshold MediumHigh [facility] ICD-Shocks Aborted (Vent) 0 [facility] [id number] 0 [facility] ICD-SHOCKSABORTED 0 [facility] ICD-SHOCKSDELIVEREDVEN TRICULAR 0 [facility] ICD-Ventricular Fibrillation 0 [facility] Implant Date 07/03/2005 [facility] Implant Date 11/30/2002 [facility] Lead Impedance (LV) 4047 ohm [facility] Lead Impedance (RV) 722 ohm [facility] Lead Impedance High Voltage 63 ohm [facility] Lead1 Mfg MDT [facility] Lead2 Mfg MDT [facility] Lead3 Mfg GDT [facility] Location LV [facility] Location RA [facility] Location RV [facility] Lower Rate (bpm) 80 {beats}/min [facility] LV PACING % 0 % [facility] Max Sensor Rate (bpm) 90 {beats}/min [facility] MDT_PROG_TACHY_ZONE_DE TECTIONS_STATUS ENABLED [facility] Model [id number] Viva XT [place] AGRIC[employer]URAL AGENT-D [facility] Model 4196 Attain Ability MRI SureScan [facility] Model 5076 CapSureFix Novus [facility] Model 0144 [employer] Endurance Rx [facility] Pacing Mode DDDR [facility] Serial Number [id number] [facility] Serial Number [id number] [facility] Serial Number [id number] [facility] Serial Number [id number] [facility] Test Charge Energy [facility] Test Charge Time 4.464 [facility] Therapy Status (Vent) Enabled [facility] Thresh RA Capture Amplitude (volts) 0.625 V [facility] Thresh RA Capture Duration (ms) 0.4 ms [facility] Thresh RA Sensing Amplitude (mvolts) 3.125 mV [facility] Thresh RV Capture Amplitude (VOLTS) 1.5 V [facility] Thresh RV Capture Duration (MS) 0.4 ms [facility] Thresh RV Sensing Amplitude (MVOLTS) 10.75 mV [facility] Tracking Rate (bpm) 90 {beats}/min C [facility] VF Zone Detection Interval 450 ms [facility] VF Zone Therapy Configuration 2 ATP(s) + 0 Shock(s) [facility] No Panel Informationon 07-01 BLANK _ [facility] ICD-ATRIALTACHYCARDIA 0 [facility] ICD-Fast Ventricular Tachycardia 0 [facility] [facility] Implant Date 09/23/2016 [facility] ICD REMOTE CHECKon 2 AV Delay Adaptive Paced Minimum (ms) 350 ms [facility] AV Delay Adaptive Rate Maximum (bpm) 90 {beats}/min [facility] AV Delay Adaptive Rate Minimum (bpm) 75 {beats}/min [facility] AV Delay Adaptive Sensed Minimum (ms) 250 ms [facility] AV Delay Adaptive Status ENABLED [facility] AV Delay Paced (ms) 100 ms [facility] AV Delay Sensed (ms) [address] [facility] Battery Voltage 2.85 V [facility] Scott LV Pacing Polarity BI [facility] Scott RA Pacing Amplitude (volts) 2 V [facility] Scott RA Pacing Polarity BI [facility] Scott RA Pacing Pulse Width (ms) 0.4 ms [facility] Scott RA Sensing Amplitude (mvolts) 0.3 mV [facility] Scott RA Sensing Blanking Period (ms) 150 ms [facility] Scott RA Sensing Polarity BI [facility] Scott RA Sensing Refractory Period (ms) 250 ms [facility] Scott RV Pacing Amplitude (volts) 2.75 V [facility] Scott RV Pacing Polarity BI [facility] Scott RV Pacing Pulse Width (ms) 0.4 ms [facility] Scott RV Sensing Amplitude (mvolts) 0.3 mV [facility] Scott RV Sensing Blanking Period (ms) 200 ms [facility] Scott RV Sensing Polarity BI [facility] Detection Configuration (Vent) 2 - Zone [facility] FastVT_Detection Interval 450 ms [facility] FastVT_Therapy Configuration 2 ATP(s) + 0 Shock(s) [facility] ICD AFIB DetectionStatus DISABLED [facility] ICD ATAF DetectionInterval ms 450 ms [facility] ICD ATAF DetectionStatus ENABLED [facility] ICD ATAF TherapyConfiguration 2 ATP(s) + 0 Shock(s) [facility] ICD FastVT DetectionStatus ENABLED [facility] ICD-ADLRATE_BPM 85 {beats}/min [facility] ICD-AMS EPISODES 133 {beats}/min [facility] ICD-ATP Episodes (Vent) 0 [facility] ICD-ATRIALFIBRILLATION 117 Cl [facility] ICD-ATRIALTACHYCARDIA 117 [facility] ICD-Counters Cleared Date 09/23/2016 [facility] ICD-Device Mfg MDT [facility] ICD-LEADIMPEDANCEATRIA L 342 ohm [facility] ICD-Percent Pacing (Atrial) 67.54 % [facility] ICD-Percent Pacing (Vent) 96.8 % [facility] ICD-PMT Intervention ENABLED [facility] ICD-PVC Intervention ENABLED [facility] ICD-Rate Modulation Acceleration Reaction 30 s [facility] ICD-Rate Modulation Deceleration Exercise [facility] ICD-Rate Modulation Morris 3 [facility] ICD-Rate Modulation Threshold MediumHigh [facility] ICD-Shocks Aborted (Vent) 0 [facility] [id number] 0 [facility] ICD-SHOCKSABORTED 0 [facility] ICD-SHOCKSDELIVEREDVEN TRICULAR 0 [facility] ICD-Ventricular Fibrillation 0 [facility] Implant Date 07/03/2005 [facility] Implant Date 11/30/2002 [facility] Lead Impedance (LV) 4047 ohm [facility] Lead Impedance (RV) 703 ohm [facility] Lead Impedance High Voltage 60 ohm [facility] Lead1 Mfg MDT [facility] Lead2 Mfg MDT [facility] Lead3 Mfg GDT [facility] Location LV [facility] Location RA [facility] Location RV [facility] Lower Rate (bpm) 80 {beats}/min [facility] LV PACING % 0 % [facility] Max Sensor Rate (bpm) 90 {beats}/min [facility] MDT_PROG_TACHY_ZONE_DE TECTIONS_STATUS ENABLED [facility] Model [id number] Viva [place] AGRICULTURAL AGENT-D [facility] Model 4196 Attain Ability MRI SureScan [facility] Model 5076 CapSureFix Novus [facility] Model 0144 Endotak Endurance Rx [facility] Pacing Mode DDDR [facility] Serial Number [id number] [facility] Serial Number [id number] [facility] Serial Number [id number] [facility] Serial Number [id number] [facility] Test Charge Energy [facility] Test Charge Time 4.464 [facility] Therapy Status (Vent) Enabled [facility] Thresh RA Capture Amplitude (volts) 0.625 V [facility] Thresh RA Capture Duration (ms) 0.4 ms [facility] Thresh RA Sensing Amplitude (mvolts) 2 mV [facility] Thresh RV Capture Amplitude (VOLTS) 1.375 V [facility] Thresh RV Capture Duration (MS) 0.4 ms [facility] Thresh RV Sensing Amplitude (MVOLTS) 10.375 mV [facility] Tracking Rate (bpm) 90 {beats}/min [facility] VF Zone Detection Interval 450 ms [facility] VF Zone Therapy Configuration 2 ATP(s) + 0 Shock(s) [facility] AV Delay Adaptive Paced Minimum (ms) 350 ms [facility] AV Delay Adaptive Rate Maximum (bpm) 90 {beats}/min [facility] AV Delay Adaptive Rate Minimum (bpm) 75 {beats}/min [facility] AV Delay Adaptive Sensed Minimum (ms) 250 ms [facility] AV Delay Adaptive Status ENABLED [facility] AV Delay Paced (ms) 100 ms [facility] AV Delay Sensed (ms) [address] [facility] Battery Voltage 2.85 V [facility] Scott LV Pacing Polarity BI [facility] Scott RA Pacing Amplitude (volts) 2 V [facility] Scott RA Pacing Polarity BI [facility] Scott RA Pacing Pulse Width (ms) 0.4 ms [facility] Scott RA Sensing Amplitude (mvolts) 0.3 mV [facility] Scott RA Sensing Blanking Period (ms) 150 ms [facility] Scott RA Sensing Polarity BI [facility] Scott RA Sensing Refractory Period (ms) 250 ms [facility] Scott RV Pacing Amplitude (volts) 2.75 V [facility] Scott RV Pacing Polarity BI [facility] Scott RV Pacing Pulse Width (ms) 0.4 ms [facility] Scott RV Sensing Amplitude (mvolts) 0.3 mV [facility] Scott RV Sensing Blanking Period (ms) 200 ms [facility] Scott RV Sensing Polarity BI [facility] Detection Configuration (Vent) 2 - Zone [facility] FastVT_Detection Interval 450 ms [facility] FastVT_Therapy Configuration 2 ATP(s) + 0 Shock(s) [facility] ICD AFIB DetectionStatus DISABLED [facility] ICD ATAF DetectionInterval ms 450 ms [facility] ICD ATAF DetectionStatus ENABLED [facility] ICD ATAF TherapyConfiguration 2 ATP(s) + 0 Shock(s) [facility] ICD FastVT DetectionStatus ENABLED [facility] ICD-ADLRATE_BPM 85 {beats}/min [facility] ICD-AMS EPISODES 133 {beats}/min [facility] ICD-ATP Episodes (Vent) 0 [facility] ICD-ATRIALFIBRILLATION 117 Cl [facility] ICD-ATRIALTACHYCARDIA 117 [facility] ICD-Counters Cleared Date 09/23/2016 [facility] ICD-Device Mfg MDT [facility] ICD-LEADIMPEDANCEATRIA L 342 ohm [facility] ICD-Percent Pacing (Atrial) 67.54 % [facility] ICD-Percent Pacing (Vent) 96.8 % [facility] ICD-PMT Intervention ENABLED [facility] ICD-PVC Intervention ENABLED [facility] ICD-Rate Modulation Acceleration Reaction 30 s [facility] ICD-Rate Modulation Deceleration Exercise [facility] ICD-Rate Modulation Morris 3 [facility] ICD-Rate Modulation Threshold MediumHigh [facility] ICD-Shocks Aborted (Vent) 0 [facility] [id number] 0 [facility] ICD-SHOCKSABORTED 0 [facility] ICD-SHOCKSDELIVEREDVEN TRICULAR 0 [facility] ICD-Ventricular Fibrillation 0 [facility] Implant Date 07/03/2005 [facility] Implant Date 11/30/2002 [facility] Lead Impedance (LV) 4047 ohm [facility] Lead Impedance (RV) 703 ohm [facility] Lead Impedance High Voltage 60 ohm [facility] Lead1 Mfg MDT [facility] Lead2 Mfg MDT [facility] Lead3 Mfg GDT [facility] Location LV [facility] Location RA [facility] Location RV [facility] Lower Rate (bpm) 80 {beats}/min [facility] LV PACING % 0 % [facility] Max Sensor Rate (bpm) 90 {beats}/min [facility] MDT_PROG_TACHY_ZONE_DE TECTIONS_STATUS ENABLED [facility] Model [id number] Viva XT [place] AGRICULTURAL AGENT-D [facility] Model 4196 Attain Ability MRI SureScan [facility] Model 5076 CapSureFix Novus [facility] Model 0144 [employer]otak Endurance Rx [facility] Pacing Mode DDDR [facility] Serial Number [id number] [facility] Serial Number [id number] [facility] Serial Number [id number] [facility] Serial Number [id number] [facility] Test Charge Energy [facility] Test Charge Time 4.464 [facility] Therapy Status (Vent) Enabled J[facility] Thresh RA Capture Amplitude (volts) 0.625 V [facility] Thresh RA Capture Duration (ms) 0.4 ms [facility] Thresh RA Sensing Amplitude (mvolts) 2 mV [facility] Thresh RV Capture Amplitude (VOLTS) 1.375 V [facility] Thresh RV Capture Duration (MS) 0.4 ms [facility] Thresh RV Sensing Amplitude (MVOLTS) 10.375 mV [facility] Tracking Rate (bpm) 90 {beats}/min C [facility] VF Zone Detection Interval 450 ms [facility] VF Zone Therapy Configuration 2 ATP(s) + 0 Shock(s) [facility] No Panel Informationon 06-01 [facility] _ [facility] ICD-ATRIALTACHYCARDIA 0 [facility] ICD-Fast Ventricular Tachycardia 0 [facility] Implant Date 09/23/2016 [facility] BLANK _ [facility] ICD-ATRIALTACHYCARDIA 0 [facility] ICD-Fast Ventricular Tachycardia 0 [facility] Implant Date 09/23/2016 [facility] Office Visit (Cardiology)on 04-24-2022 Follow-up visit [...] Pacemaker Interrogation; Status:Active - Retrospective Authorization; Requested for:[id number]; Health Maintenance Renew: Isosorbide Mononitrate ER 30 MG Oral Tablet Extended Release 24 Hour; TAKE 1 TABLET DAILY Avoid alcoholic beverages.; Status:Complete - Retrospective Authorization; Done: 24Apr2022 Avoid foods and beverages that contain caffeine.; Status:Complete - Retrospective Authorization; Done: 24Apr2022 Begin or continue regular aerobic exercise. Gradually work up to at least 3 sessions of 30 minutes of exercise a week.; Status:Complete - Retrospective Authorization; Done: [id number] Diets that are low in carbohydrates and high in protein are very popular for weight loss.; Status:Complete - Retrospective Authorization; Done: [id number] Eat a low fat and low cholesterol diet.; Status:Complete - Retrospective Authorization; Done: [id number] Please bring all medicines, vitamins, and herbal supplements with you when you come to the office.; Status:Complete - Retrospective Authorization; Done: 24Apr2022 Restrict the salt in your diet by avoiding highly salted foods.; Status:Complete - Retrospective Authorization; Done: [id number] Health Maintenance, Overweight with body mass index (BMI) of 29 to 29.9 in adult Losing just 5 to 10 pounds may lower your risk of health problems.; Status:Complete - Retrospective Authorization; Done: 24Apr2022 SocHx: Former smoker Tobacco Use Screening; Status:Complete; Done: 24Apr2022 Patient Instructions Follow up with Dr. Nunez in 6 months and 1 year with a device check. Drink plenty of water daily. ILatesha CMA, am scribing for and in the presence of, Dr. Margareth Nunez MA, FACC, FACP, RUST. No list or bottles for comparison, patient or family member to call with any updates [phone] The provider reviewed the following test(s) and [...] for details. She has remote history of [place] , cardiogenic shock, PCI circumflex and iABP, with persistent severe LV dysfunction. She later occluded her cicumflex. Years later, she had HF and severe MR and underwent mitral valve repair at [facility]. She had recurrent VT and atrial arrhythmias, and underwent several ablations and repeat percutaneous MVR at [facility]. After her MVR and ablation in July,, she had KALLI when then improved. She has had recurrent ICD shocks for atrial flutter. Personal review of ECG and cardiac data reviewed Outside records: EP study and successful ablation of atrial flutter. Multiple atrial tachycardias, possible left atrial tachycardia also noted and not targeted for ablation. December 2021. Discharge summary [facility] Oct 2021 Cardiology consult Oct 2021 [...] heart failur (more content not included)... Normal [facility] Tobacco Screening.on 022 Fall risk assessment a) No falls [facility] the last year [facility] Work Phone: Tobacco use status CP a) Yes [facility] Work Phone: Tobacco Screening. Yes [facility] 320 DO Work Phone: XR LSPINE [...] JC BRAVO Date: 2022-04-24 07:14 Normal [facility] TRANSFERRINon 04-17-2022 Transferrin [Mass/Vol] 418 mg/dL Critically high 192-364 [facility] Comment on above: Performed By: #### T RANSFR #### [facility] [address] [place], [place] [address] Dr. Melissa Helm CBC AUTO DIFFon 04-16-2022 BASO # 0.2 103/ul Critically high 0.0-0.1 [facility] Comment on above: Performed By: #### C BC ####[facility] [address] [place], [place] [address]IfDr. Melissa Helm Basophils/100 WBC (Bld) 1.2 % Normal 0.2-2.0 [facility] Comment on above: Performed By: #### C BC ####[facility] [address] [place] [address]Dr. Melissa Helm EO # 0.2 103/ul Normal 0.0-0.7 [facility] Comment on above: Performed By: #### C BC ####[facility] [address] [place], [place] [address]Dr. Melissa Helm Eosinophils/100 WBC (Bld) 1.9 % Normal 0.9-7.0 [facility] Comment on above: Performed By: #### C BC ####[facility] [address] [place], [place] [address]Dr. Melissa Helm Erythrocyte distribution width (RBC) [Ratio] 22.6 % Critically high 11.0-15.0 [facility] Comment on above: Performed By: #### C BC ####[facility] [address] [place], [place] [address]Dr. Melissa Helm Hematocrit (Bld) [Volume fraction] 39.2 % Normal 36.0-48.0 [facility] Comment on above: Performed By: #### C BC ####[facility] [address] [place], [place] [address]Dr. Melissa Helm Hemoglobin (Bld) [Mass/Vol] 10.8 g/dL Critically low 12.0-16.0 [facility] Comment on above: Performed By: #### C BC ####[facility] [address] [place], [place] [address]Dr. Melissa Helm IG # 0.03 10e3/ul Normal 0.00-0.03 [facility] Comment on above: Performed By: #### C BC ####[facility] [address] [place], [place] [address]Dr. Melissa Helm IG % 0.2 % Normal 0.0-0.5 [facility] Comment on above: Performed By: #### C BC ####[facility] [address] [place], [place] [address]Dr. Melissa Helm LYMPH # 2.5 103/ul Normal 1.2-3.8 [facility] Comment on above: Performed By: #### C BC ####[facility] [address] [place] [id number]. Melissa Helm Lymphocytes/100 WBC (Bld) 19.8 % Critically low 20.5-60.0 [facility] Comment on above: Performed By: #### C BC ####[facility] [address] [place] [id number]. Melissa Helm MANUAL DIFF REQ NO Normal [facility] Comment on above: Performed By: #### C BC ####[facility] [address] [place] [phone]. Melissa Helm MCH (RBC) [Entitic mass] 18.6 pg Critically low 26.7-34.0 [facility] Comment on above: Performed By: #### C BC ####[facility] [address] [place], [place] [address]Dr. Melissa Helm MCHC (RBC) [Mass/Vol] 27.6 g/dL Critically low 29.9-35.2 [facility] Comment on above: Performed By: #### C BC ####[facility] [address] [place], [place] [address]Dr. Melissa Helm MCV (RBC) [Entitic vol] 67.4 fL Critically low 81.0-99.0 [facility] Comment on above: Performed By: #### C BC ####[facility] [address] [place], [place] [address]Dr. Melissa Helm MONO # 1.2 103/ul Critically high 0.3-0.8 [facility] Comment on above: Performed By: #### C BC ####[facility] [address] [place], [place] [address]Dr. Melissa Helm Monocytes/100 WBC (Bld) 10.0 % Normal 1.7-12.0 [facility] Comment on above: Performed By: #### C BC ####[facility] [address] [place], [place] [address]Dr. Melissa Helm NEUT # 8.3 103/ul Critically high 1.4-6.5 [facility] Comment on above: Performed By: #### C BC ####[facility] [address] [place] [id number]. Melissa Helm Neutrophils/100 WBC (Bld) 66.9 % Normal 43.0-75.0 [facility] Comment on above: Performed By: #### C BC ####[facility] [address] [place] [id number]. Melissa Helm PLT 235 103/ul Normal 150-450 [facility] Comment on above: Performed By: #### C BC ####[facility] [address] [place] [id number]. Melissa Helm RBC 5.82 106/ul Critically high 4.20-5.40 [facility] Comment on above: Performed By: #### C BC ####[facility] [address] [place] [address]Dr. Melissa Helm WBC 12.4 103/ul Critically high 4.0-11.0 [facility] Comment on above: Performed By: #### C BC ####[facility] [address] [place] [phone]. Melissa Helm FERRITINon 04-16-2022 Ferritin [Mass/Vol] 27.0 ng/mL Normal 8.0-252.0 [facility] Comment on above: Performed By: #### F ETIBC, FERR ####[facility] [address] [place] [address]Dr. Melissa Helm FREE T3on 04-16-2022 FREE T3 3.09 pg/mlL Normal 2.18-3.98 [facility] Comment on above: Performed By: #### C MP, FT3, LIPID, TSH ####[facility] [address] [place], [place] [address]Dr. Melissa Helm IRON AND TIBCon 04-16-2022 % SATURATION 5.4 % Normal [facility] Comment on above: Performed By: #### F ETIBC, FERR ####[facility] [address] [place], [place] [address]Dr. Melissa Helm Iron [Mass/Vol] 26.0 ug/dL Critically low 50.0-170.0 [facility] Comment on above: Performed By: #### F ETIBC, FERR ####[facility] [address] [place] [phone]. Melissa Heml TIBC DIRECT 483.0 ug/dL Critically high 250.0-450. 0 [facility] Comment on above: Performed By: #### F ETIBC, FERR ####[facility] [address] [place] [phone]. Melissa Helm LIPID PROFILEon 04-16-2022 CHOL-HDL RATIO NORM SEE BELOW Normal [facility] Comment on above: Result Comment: 3.3 - 4.4 LOW RISK 4.4 - 7.1 AVERAGE RISK 7.1 - 11.0 MODERATE RISK >11.0 HIGH RISK Performed By: #### C MP, FT3, LIPID, TSH ####[facility] [address] [place] [address]Dr. Sophiadomingo Volodymyr Cholesterol [Mass/Vol] 131 mg/dL Normal <=200 [facility] Comment on above: Performed By: #### C MP, FT3, LIPID, TSH ####[facility] [address] [place] [address]Dr. Melissa Helm Cholesterol in HDL [Mass/Vol] 51 mg/dL Normal 40-60 [facility] Comment on above: Performed By: #### C MP, FT3, LIPID, TSH ####[facility] [address] [place] [address]Dr. Sophiadomingo Volodymyr Cholesterol in LDL [Mass/Vol] 54.0 mg/dL Normal [facility] Comment on above: Performed By: #### C MP, FT3, LIPID, TSH ####[facility] [address] [place] [address]Dr. Melissa Helm Cholesterol.total/Chol esterol in HDL [Mass ratio] 2.6 {ratio} Normal [facility] Comment on above: Performed By: #### C MP, FT3, LIPID, TSH ####[facility] [address] [place] [phone]. Melissa Helm HDL NORMAL > or = 60 mg/dl - LO W CARDIOVASCULAR RISK <40 mg/dl - HIGH CARDIOVASCULAR RISK Normal [facility] Comment on above: Performed By: #### C MP, FT3, LIPID, TSH ####[facility] [address] [place] [address]Dr. Melissa Helm LDL CALC NORMAL SEE BELOW Normal [facility] [place] Comment on above: Result Comment: <100 mg/dl OPTIMAL 100 - 129 mg/dl NEAR OR ABOVE OPTIMAL 130 - 159 mg/dl BORDERLINE HIGH 160 - 189 mg/dl HIGH >190 mg/dl VERY HIGH Performed By: #### C MP, FT3, LIPID, TSH ####[facility] Pyqkfhtgly[address] [place] [address]Dr. Melissa Helm Triglyceride [Mass/Vol] 130 mg/dL Normal <=150 [facility] Comment on above: Performed By: #### C MP, FT3, LIPID, TSH ####[facility] Vdxqetqtxp6449 [place] [address]Dr. Melissa Helm VLDL CALC 26.0 mg/dL Normal [facility] Comment on above: Performed By: #### C MP, FT3, LIPID, TSH ####[facility] Awynilmpmu4594 [place] [address]Dr. Melissa Helm PROF 14(COMP METB)on 022 Albumin [Mass/Vol] 4.0 g/dL Normal 3.4-5.0 [facility] Comment on above: Performed By: #### C MP, FT3, LIPID, TSH ####[facility] Crrlyezdlh2668 [place] [address]Dr. Melissa Helm Albumin/Globulin [Mass ratio] 0.9 {ratio} Normal [facility] Comment on above: Performed By: #### C MP, FT3, LIPID, TSH ####[facility] Rlknjclvwo0996 [place] [address]Dr. Melissa Helm ALP [Catalytic activity/Vol] 263 U/L Critically high 46-116 [facility] Comment on above: Performed By: #### C MP, FT3, LIPID, TSH ####[facility] Xzfxzuvpmp8816 [place] [address]Dr. Melissa Helm ALT [Catalytic activity/Vol] 9 U/L Critically low 14-59 [facility] Comment on above: Performed By: #### C MP, FT3, LIPID, TSH ####[facility] Lljrqjlftm2207 [place] [address]Dr. Melissa Helm Anion gap [Moles/Vol] 14.7 mmol/L Normal [facility] Comment on above: Performed By: #### C MP, FT3, LIPID, TSH ####[facility] Vesqskekkm0319 [place] [address]Dr. Melissa Helm AST [Catalytic activity/Vol] 15 U/L Normal 15-37 [facility] Comment on above: Performed By: #### C MP, FT3, LIPID, TSH ####[facility] Jsgvpyrhyr2532 [place] [address]Dr. Melissa Helm Bilirubin [Mass/Vol] 0.4 mg/dL Normal 0.2-1.0 [facility] Comment on above: Performed By: #### C MP, FT3, LIPID, TSH ####[facility] Raawuvrs[address] [place], [place] [address]Dr. Melissa Helm Calcium [Mass/Vol] 9.1 mg/dL Normal 8.5-10.1 [facility] Comment on above: Performed By: #### C MP, FT3, LIPID, TSH ####[facility] Duyvhpxieu0337 [place] [address]Dr. Melissa Helm Chloride [Moles/Vol] 98 mmol/L Normal 98-107 [facility] Comment on above: Performed By: #### C MP, FT3, LIPID, TSH ####[facility] Qatxwfjjkg[address] [place], [place] [address]Dr. Melissa Helm CO2 [Moles/Vol] 27.5 mmol/L Normal 21.0-32.0 [facility] Comment on above: Performed By: #### C MP, FT3, LIPID, TSH ####[facility] Bhdfprmqse[address] [place], [place] [address]Dr. Melissa Helm Creatinine [Mass/Vol] 1.08 mg/dL Critically high 0.55-1.02 [facility] Comment on above: Performed By: #### C MP, FT3, LIPID, TSH ####[facility] Hzcgglvxbt5141 [place] [address]Dr. Melissa Helm EGFR-AF MALAWIAN >60 Normal >=60 [facility] Comment on above: Performed By: #### C MP, FT3, LIPID, TSH ####[facility] Hmpumhxffj4253 [place] [address]Dr. Melissa Helm EGFR-NON AF MALAWIAN 53 mL/min/1.73m2 Critically low >=60 [facility] Comment on above: Performed By: #### C MP, FT3, LIPID, TSH ####[facility] Ppiajrpyeq0661 [place] [address]Dr. Melissa Helm Globulin (S) [Mass/Vol] 4.3 g/dL Normal [facility] Comment on above: Performed By: #### C MP, FT3, LIPID, TSH ####[facility] Ardxrfhmba1628 [place] [address]Dr. Melissa Helm Glucose [Mass/Vol] 80 mg/dL Normal 74-106 [facility] Comment on above: Performed By: #### C MP, FT3, LIPID, TSH ####[facility] Eylvhjvddk0929 [place] [address]Dr. Melissa Helm Potassium [Moles/Vol] 3.2 mmol/L Critically low 3.5-5.1 [facility] Comment on above: Performed By: #### C MP, FT3, LIPID, TSH ####[facility] Xgimuzrety7089 [place] [address]Dr. Sophiadomingo Helm Protein [Mass/Vol] 8.3 g/dL Critically high 6.4-8.2 [facility] Comment on above: Performed By: #### C MP, FT3, LIPID, TSH ####[facility] Hwzbwoaaid5647 [place] [address]Dr. Melissa Helm Sodium [Moles/Vol] 137 mmol/L Normal 136-145 [facility] Comment on above: Performed By: #### C MP, FT3, LIPID, TSH ####[facility] Szzpaxhsbh5357 [place] [address]Dr. Melissa Helm Urea nitrogen [Mass/Vol] 22.0 mg/dL Critically high 7.0-18.0 [facility] Comment on above: Performed By: #### C MP, FT3, LIPID, TSH ####[facility] Xpzwgsrrsg1588 [place] [id number]. Melissa Helm Urea nitrogen/Creatinine [Mass ratio] 20.4 mg/mg Normal [facility] Comment on above: Performed By: #### C MP, FT3, LIPID, TSH ####[facility] Lpthyhfivb8827 [place] [address]Dr. Melissa Helm TSHon 04-16-2022 TSH 30.570 uIU/mL Critically high 0.358-3.74 0 [facility] Comment on above: Performed By: #### C MP, FT3, LIPID, TSH ####[facility] Asoxmoxjwh3870 [place] [address]Dr. Melissa Helm ICD REMOTE CHECKon 2 AV Delay Adaptive Paced Minimum (ms) 350 ms [facility] AV Delay Adaptive Rate Maximum (bpm) 90 {beats}/min [facility] AV Delay Adaptive Rate Minimum (bpm) 75 {beats}/min [facility] AV Delay Adaptive Sensed Minimum (ms) 250 ms [facility] AV Delay Adaptive Status ENABLED [facility] AV Delay Paced (ms) 100 ms [facility] AV Delay Sensed (ms) [address] [facility] Battery Voltage 2.87 V [facility] Scott LV Pacing Polarity BI [facility] Scott RA Pacing Amplitude (volts) 2 V [facility] Scott RA Pacing Polarity BI [facility] Scott RA Pacing Pulse Width (ms) 0.4 ms [facility] Scott RA Sensing Amplitude (mvolts) 0.3 mV [facility] Scott RA Sensing Blanking Period (ms) 150 ms [facility] Scott RA Sensing Polarity BI [facility] Scott RA Sensing Refractory Period (ms) 250 ms [facility] Scott RV Pacing Amplitude (volts) 3 V [facility] Scott RV Pacing Polarity BI [facility] Scott RV Pacing Pulse Width (ms) 0.4 ms [facility] Scott RV Sensing Amplitude (mvolts) 0.3 mV [facility] Scott RV Sensing Blanking Period (ms) 200 ms [facility] Scott RV Sensing Polarity BI [facility] Detection Configuration (Vent) 2 - Zone [facility] FastVT_Detection Interval 450 ms [facility] FastVT_Therapy Configuration 2 ATP(s) + 0 Shock(s) [facility] ICD AFIB DetectionStatus DISABLED [facility] ICD ATAF DetectionInterval ms 450 ms [facility] ICD ATAF DetectionStatus ENABLED [facility] ICD ATAF TherapyConfiguration 2 ATP(s) + 0 Shock(s) [facility] ICD FastVT DetectionStatus ENABLED [facility] ICD-ADLRATE_BPM 85 {beats}/min [facility] ICD-AMS EPISODES 133 {beats}/min [facility] ICD-ATP Episodes (Vent) 0 [facility] ICD-ATRIALFIBRILLATION 339 Cl [facility] ICD-ATRIALTACHYCARDIA 339 [facility] ICD-ATRIALTACHYCARDIA 5 [facility] ICD-ATRIALTACHYCARDIA 7 [facility] ICD-Counters Cleared Date 09/23/2016 [facility] ICD-Device Sri GROSS [facility] ICD-Fast Ventricular Tachycardia 7 [facility] ICD-LEADIMPEDANCEATRIA L 342 ohm [facility] ICD-Percent Pacing (Atrial) 58.38 % [facility] ICD-Percent Pacing (Vent) 88.05 % [facility] ICD-PMT Intervention ENABLED [facility] ICD-PVC Intervention ENABLED [facility] ICD-Rate Modulation Acceleration Reaction 30 s [facility] ICD-Rate Modulation Deceleration Exercise [facility] ICD-Rate Modulation Morris 3 [facility] ICD-Rate Modulation Threshold MediumHigh [facility] ICD-Shocks Aborted (Vent) 0 [facility] [id number] 0 [facility] ICD-SHOCKSABORTED 0 [facility] ICD-SHOCKSDELIVEREDVEN TRICULAR 0 [facility] ICD-Ventricular Fibrillation 0 [facility] Implant Date 07/03/2005 [facility] Implant Date 11/30/2002 [facility] Lead Impedance (LV) 4047 ohm [facility] Lead Impedance (RV) 703 ohm [facility] Lead Impedance High Voltage 57 ohm [facility] Lead1 Sri GROSS [facility] Lead2 Mfg MDT [facility] Lead3 Mfg GDT [facility] Location LV [facility] Location RA [facility] Location RV [facility] Lower Rate (bpm) 80 {beats}/min [facility] LV PACING % 0 % [facility] Max Sensor Rate (bpm) 90 {beats}/min [facility] MDT_PROG_TACHY_ZONE_DE TECTIONS_STATUS ENABLED [facility] Model [id number] [place] AGRICULTURAL AGENT-D [facility] Model 4196 Attain Ability MRI SureScan [facility] Model 5076 CapSureFix Novus [facility] Model 0144 Endotak Endurance Rx [facility] Pacing Mode DDDR [facility] Serial Number [id number] [facility] Serial Number [id number] [facility] Serial Number [id number] [facility] Serial Number [id number] [facility] Test Charge Energy 18 [facility] Test Charge Time 4.354 [facility] Therapy Status (Vent) Enabled [facility] Thresh RA Capture Amplitude (volts) 0.625 V [facility] Thresh RA Capture Duration (ms) 0.4 ms [facility] Thresh RA Sensing Amplitude (mvolts) 2 mV [facility] Thresh RV Capture Amplitude (VOLTS) 1.5 V [facility] Thresh RV Capture Duration (MS) 0.4 ms [facility] Thresh RV Sensing Amplitude (MVOLTS) 11.625 mV [facility] Tracking Rate (bpm) 90 {beats}/min [facility] VF Zone Detection Interval 450 ms [facility] VF Zone Therapy Configuration 2 ATP(s) + 0 Shock(s) [facility] No Panel Informationon 04-12 BLANK _ [facility] ICD-ATRIALTACHYCARDIA 0 [facility] ICD-Fast Ventricular Tachycardia 0 [facility] Implant Date 09/23/2016 [facility] COAGULATION SCREENon 022 aPTT Coag (Bld) [Time] 29 s Normal 26 - 39 [facility] Comment on above: Result Comment: THE APTT IS NO LONGER USED FOR MONITORING UNFRACTIONATED HEPARIN THERAPY. FOR MONITORING HEPARIN THERAPY, USE THE HEPARIN ASSAY. Performed By: #### C OAGS #### [address] [phone] PT Coag (PPP) [Time] 16.1 s High 9.8 - 13.4 [facility] Comment on above: Performed By: #### C OAGS #### [address] [phone] PT, INR 1.4 High 0.9 - 1.1 [facility] Comment on above: Performed By: #### C OAGS #### [address] [id number] Discharge Hvhavvl6wv 022 Discharge Profile2 Discharge Orders: DNAR: Code Status at Discharge: Full Code Appointments: Follow-Up Appointment 02: Physician/Dept/ServiceDrTarun Nunez Reason for ReferralFollow-up Scheduled Date/Jzjm53-Xrw-3176 13:20 [facility] Office Phone [phone] Electronic Signatures: Axel Rangel (COOR) (Signed 21-Jan-2022 09:13) Authored: Discharge Orders, Appointments, Gold Form - Pharmacy Clinical Specialist Summary Last Updated: 21-Jan-2022 09:13 by Axel Rangel (COOR) [facility] - Coagulationon 0 01-21-2022 aPTT Coag (PPP) [Time] 29 s 26 - [address] Work Phone: Comment on above: THE APTT IS NO LONGE R USED FOR MONITORING UNFRACTIONATED HEPARIN THERAPY. FOR MONITORING HEPARIN THERAPY, USE THE HEPARIN ASSAY. INR Coag (PPP) [Relative time] 1.4 {INR} above high threshold 0.9 - 1.[address] Work Phone: PT Coag (PPP) [Time] 16.1 s above high threshold 9.8 - 13.[address] Work Phone: No Panel Informationon 01-21 [email or web address] ?YkxdubaJF=[id number]&Date =21-01-2022&Time=17%3a39% 3a41%3a00&TestType=ECG&Si te=11&OutputType=PDF&Ext= PDF [facility] [address] [place] Work Phone: Ventricular-paced rhythm [facility] [address] [place] Work Phone: [phone] Abnormal [facility] [address] [place] Work Phone: [phone] [facility] [address] [place] Work Phone: [phone] 1 [facility] [address] [place] Work Phone: [phone] 1 [facility] [address] [place] Work Phone: [phone] 1 [facility] [address] [place] Work Phone: [phone] 1 [facility] [address] [place] Work Phone: [phone] 1 [facility] [address] [place] Work Phone: [phone] 1 [facility] [address] [place] Work Phone: [phone] 1 [facility] [address] [place] Work Phone: [phone] 1 [facility] [address] [place] Work Phone: [phone] 1 [facility] [address] [place] Work Phone: [phone] 1 [facility] [address] [place] Work Phone: [phone] [email or web address] ?[email or web address]=[id number]&Date =21-01-2022&Time=09%3a40% 3a37%3a00&TestType=ECG&Si te=11&OutputType=PDF&Ext= PDF [facility] [address] [place] Work Phone: [phone] Atrial-paced rhythm [facility] [address] [place] Work Phone: [phone] Abnormal [facility] [address] [place] Work Phone: [phone] 1 [facility] [address] [place] Work Phone: [phone] 1 [facility] [address] [place] Work Phone: [phone] 1 [facility] [address] [place] Work Phone: [phone] 1 [facility] [address] [place] Work Phone: [phone] 1 [facility] [address] [place] Work Phone: [phone] 1 [facility] [address] [place] Work Phone: [phone] 1 [facility] [address] [place] Work Phone: [phone] 1 [facility] [address] [place] Work Phone: [phone] 1 [facility] [address] [place] Work Phone: [phone] 1 [facility] [address] [place] Work Phone: [phone] 1 [facility] [address] [place] Work Phone: [phone] 1 [facility] [address] [place] Work Phone: [phone] 1 [facility] [address] [place] Work Phone: [phone] 1 [facility] [address] [place] Work Phone: [phone] Order Reconciliationon 01-21 Order Reconciliation Page 1 Admission Reconciliation Document Reconciliation Type: Observation requested on behalf of Yessi Miller (Advanced Practice Nurse) done by Yessi Miller (ELECTRICIAN CONSTRUCTOR SUPERVISOR-BIOENGINEER) Observation - Reconciliation: 21-Jan-2022 16:52 by: Yessi Miller (ELECTRICIAN CONSTRUCTOR SUPERVISOR-BIOENGINEER) Home MedicationsEnteredLast Dose TakenReconciled with current Order Reconciliation Comment/ Additional Information amiodarone 400 mg oral tablet 1 tab(s) orally once a pat68-Wrz-147321-Jan-2022 AM Amiodarone Tablet (CORDARONE; PACERONE)DOSE = 400 [...] oral tablet 1 tab(s) orally once a gxz18-Ndm-721921-Jan-2022 PM Atorvastatin Tablet (LIPITOR)DOSE = 80 mg Oral Daily atorvastatin 80 mg oral tablet continued as the inpatient order Atorvastatin azuaeqefqp-jovv-wskmqirb 50-300-40mg 1 cap(s) orally 2 times a gim73-Uje-455821-Jan-2022 Reviewed and Held escitalopram 20 mg oral tablet 1 tab(s) orally once a blo54-Bfp-271321-Jan-2022 AM Escitalopram Tablet (LEXAPRO)DOSE = 20 mg Oral Daily escitalopram 20 mg oral tablet continued as the inpatient order Escitalopram KlonoPIN Wafer 0.5 mg oral tablet, disintegrating 1 tab(s) orally 3 times daily 598596-Wsr-1185 PM clonazePAM (KLONOPIN) TabletDOSE = 0.5 mg Oral Every 8 HoursKlonoPIN Wafer 0.5 mg oral tablet, disintegrating continued as the inpatient order clonazePAM (KLONOPIN) Mag-Ox 400 oral tablet 1 tab(s) orally 2 times a rny56-Iwi-880750-Ohj-2234 AM Magnesium Oxide Tablet (Mag-Ox)DOSE = 400 mg Oral DailyMag-Ox 400 oral tablet continued as the inpatient order Magnesium Oxide Metoprolol Succinate ER 100 mg oral tablet, extended release 1 tab(s) orally once a ymm73-Cmz-102124-Xre-4952 PM Metoprolol Succinate Extended Release Tablet, Extended Release (TOPROL-XL)DOSE = 100 mg Oral DailyMetoprolol Succinate ER 100 mg oral tablet, extended release continued as the inpatient order Metoprolol Succinate Extended Release Multiple Vitamins oral tablet, dispersible 1 tab(s) orally once a day 297620-Tta-7441 Reviewed and Held Nitrostat 0.4 mg sublingual tablet 1 tab(s) sublingual every 5 minutes, As Wvffts85-Man-6369TJNXKLG UNKNOWN Nitroglycerin SubLingual Tablet (NITROSTAT)DOSE = 0.4 mg SubLingual Every 5 Minutes, PRN AnginaNitrostat 0.4 mg sublingual tablet continued as the inpatient order Nitroglycerin SubLingual omeprazole 40 mg oral delayed release capsule 1 cap(s) orally once a day 601546-Pch-1847 AM Pantoprazole Enteric Coated Tablet (PROTONIX)DOSE = 40 mg Oral DailyNotes from Pharmacy: Substitution for Omeprazole 40 mg Oral Capsule Dailyomeprazole 40 mg oral delayed release capsule continued as the inpatient order Pantoprazole Potassium Chloride (Cyt-Wjsm-Emh M20) 20 mEq oral tablet, extended release 1 tab(s) orally once a pgb97-Biy-646294-Gyb-8628 AM Potassium Chloride Extended Release Tablet, Extended ReleaseDOSE = 20 mEq Oral DailyPotassium Chloride (Bxg-Rqtk-Ahv M20) 20 mEq oral tablet, extended release continued as the inpatient order Potassium Chloride Extended Release rOPINIRole 0.25 mg oral tablet 3 tab(s) orally once a day (at bedtime) 595560-Pij-6186 PM rOPINIRole (REQUIP) TabletDOSE = 0.75 mg Oral At BedtimerOPINIRole 0.25 mg oral tablet continued as the inpatient order rOPINIRole (REQUIP) torsemide 20 mg oral tablet 1 tab(s) orally once a kxz93-Mcd-103006-Olq-0068 AM Torsemide Tablet (DEMADEX)DOSE = 20 mg Oral Dailytorsemide 20 mg oral tablet continued as the inpatient order Torsemide traZODone 50 mg oral tablet 1 tab(s) orally once a day (at bedtime), As Needed 004794-Dwx-7188 PM traZODone Tablet (DESYREL)DOSE = 50 mg Oral At Bedtime, PRN InsomniatraZODone 50 mg oral tablet continued as the inpatient order traZODone warfarin 5 mg oral tablet 1 tab(s) orally once a day. Resume 01/22/2022. [id number]-[id number]-6266 8:00 AM Reviewed and Held Additional Current [...] mL Run at: 10 mL/hr Intra[facility]ous [facility] Order Reconciliation Page 1 Discharge Reconciliation Document Reconciliation Type: Discharge requested on behalf of Yessi Miller (Advanced Practice Nurse) done by Yessi Miller (ELECTRICIAN CONSTRUCTOR SUPERVISOR-[facility]) Discharge - Reconciliation: 21-Jan-2022 16:48 by: Yessi Miller (ELECTRICIAN CONSTRUCTOR SUPERVISOR-[facility]) Home Medications EnteredHOME MEDICATIONS AT DISCHARGE DateReconciliation [...] continued as atorvastatin 80 mg oral tablet wpulokxewg-utau-xgbylosl 50-300-40mg 1 cap(s) orally 2 times a day 30-Dec-2021 10:27 xkwfzsgiif-wmla-gdyydcwm 50-300-40mg 1 cap(s) orally 2 times a day 30-Dec-2021 10:27 ngmcsdvwji-jdmr-meyfoaik 50-300-40mg is continued as ywscotlfcy-newu-acaxryba 50-300-40mg escitalopram 20 mg oral tablet 1 [...] mg oral delayed release capsule Potassium Chloride (Hka-Gbiy-Gzq M20) 20 mEq oral tablet, extended release 1 tab(s) orally once a day 30-Dec-2021 10:33 Potassium Chloride (Ekv-Awro-Cdg M20) 20 mEq oral tablet, extended release 1 tab(s) orally once a day 30-Dec-2021 10:33 Potassium Chloride (Wex-Jyec-Qjn M20) 20 mEq oral tablet, extended release is continued as Potassium Chloride (Gfa-Zdwd-Hte M20) 20 mEq oral tablet, extended release [...] and modifie (more content not included)... [facility] Patient Profile - Preop v3on 01-21-2022 Patient Profile - Preop v3 Patient Profile - Preop: Initial Info: Patient DemographicsName: ESSENCE VINCENT Date: 1970 Address: [address] [place] [address] Date/Time Hywscc22-Nme-2590 Primary Phone [phone] How to be AddressedSherry Spoken Language PreferredEnglish Source of Informationpatient Stated Reason for AdmissionTEE/EP study and ablation Primary Contact Name and NumberDepeggy Singer (significant other) [phone] Limitations on Visitors/Phone Callsnone Medications Brought to Hospitalno General Health: Weight in kg76.6 kilogram(s) Weight in mxt128.8 pound(s) Weight Methodactual (measured) Scale Typestanding Height [...] dyslipidemia Cardiovascular Management Strategiesroutine screening; medical billing representative; medication therapy Barriers to Managing Healthnone Relationship/Environ: Lives Withalone Living Arrangementsapartment Resource/Environmental Concernsnone Anticipated Transition [place] [facility] Anticipated at Transitionnone Tobacco Use: Tobacco Useno Pre-op Checklist: Arrival Eyym18-Ftu-4416 Arrival Time09:21 Procedure TypeTEE/EPS/Ablation NPOyes Last Food Ngzuae77-Ynw-7367 23:00 Last Clear Fluid Tetjgm51-Cpl-4633 07:00 ID Band On Patientpatient ID (name), [...] Updated: 21-Jan-2022 11:18 by Nannette Alvarez (ELZA) [facility] Transesophageal Echoon 01-21 Transesophageal Echo [place] [address] TRANSESOPHAGEAL ECHOCARDIOGRAM REPORT Patient Name: ESSENCE Hernandez Physician: [id number] Terry Bhardwaj MD [facility] Study Date: 01/21/2022 Referring [id number] TERRY BHARDWAJ Physician: MRN/PID: [id number] PCP: Accession/Order#: [id number] Department 2S CathLab Location: Date of : 1970 Fellow: Gender: F Nurse: Yolanda Farrell RN Admit Date: 01/21/2022 Senior Physician: Trina Obregon [facility] Admission Status: Outpatient Additional Staff: Height: 157.00 cm CC Report to: Weight: 76.00 kg Study Type: Transesophageal Echo BSA: 1.77 m2 Blood Pressure: 128 /63 mmHg Diagnosis/ICD: Z01.810-Encounter for preprocedural cardiovascular examination Indication: PRE-EP Procedure/CPT: JOVITA Complete-[id number]; Moderate Sedation Services initial 15 minutes patient >5 years-[id number] Study Detail: The following Echo studies were [...] RV Syst Pressure: 40.5 mmHg (< 30mmHg) [id number] Terry Bhardwaj MD Electronically signed on 01/21/2022 at 2:53:25 PM [facility] Trans[facility] MP-N [facility] [id number] DC Work Phone: ICD REMOTE CHECKon 2 AV Delay Adaptive Paced Minimum (ms) 350 ms [facility] AV Delay Adaptive Rate Maximum (bpm) 90 {beats}/min [facility] AV Delay Adaptive Rate Minimum (bpm) 75 {beats}/min [facility] AV Delay Adaptive Sensed Minimum (ms) 250 ms [facility] AV Delay Adaptive Status ENABLED [facility] AV Delay Paced (ms) 100 ms [facility] AV Delay Sensed (ms) [address] [facility] Battery Voltage 2.9 V [facility] Scott LV Pacing Polarity BI [facility] Scott RA Pacing Amplitude (volts) 2 V [facility] Scott RA Pacing Polarity BI [facility] Scott RA Pacing Pulse Width (ms) 0.4 ms [facility] Scott RA Sensing Amplitude (mvolts) 0.3 mV [facility] Scott RA Sensing Blanking Period (ms) 150 ms [facility] Scott RA Sensing Polarity BI [facility] Scott RA Sensing Refractory Period (ms) 250 ms [facility] Scott RV Pacing Amplitude (volts) 3 V [facility] Scott RV Pacing Polarity BI [facility] Scott RV Pacing Pulse Width (ms) 0.4 ms [facility] Scott RV Sensing Amplitude (mvolts) 0.3 mV [facility] Scott RV Sensing Blanking Period (ms) 200 ms [facility] Scott RV Sensing Polarity BI [facility] Detection Configuration (Vent) 2 - Zone [facility] FastVT_Detection Interval 450 ms [facility] FastVT_Therapy Configuration 2 ATP(s) + 0 Shock(s) [facility] ICD ATAF DetectionInterval ms 450 ms [facility] ICD ATAF DetectionStatus ENABLED [facility] ICD ATAF TherapyConfiguration 2 ATP(s) + 0 Shock(s) [facility] ICD FastVT DetectionStatus ENABLED [facility] ICD-ADLRATE_BPM 85 {beats}/min [facility] ICD-AMS EPISODES 133 {beats}/min [facility] ICD-ATP Episodes (Vent) 0 [facility] ICD-ATRIALFIBRILLATION 2063 Cl [facility] ICD-ATRIALTACHYCARDIA 2063 [facility] ICD-ATRIALTACHYCARDIA [facility] ICD-Counters Cleared Date 09/23/2016 [facility] ICD-Device Mfg MDT [facility] ICD-LEADIMPEDANCEATRIA L 304 ohm [facility] ICD-Percent Pacing (Atrial) 24.69 % [facility] ICD-Percent Pacing (Vent) 20.79 % [facility] ICD-PMT Intervention ENABLED [facility] ICD-PVC Intervention ENABLED [facility] ICD-Rate Modulation Acceleration Reaction 30 s [facility] ICD-Rate Modulation Deceleration Exercise [facility] ICD-Rate Modulation Morris 3 [facility] ICD-Rate Modulation Threshold MediumHigh [facility] ICD-Shocks Aborted (Vent) 0 [facility] [id number] 0 [facility] ICD-SHOCKSABORTED 0 [facility] ICD-SHOCKSDELIVEREDVEN TRICULAR 0 [facility] ICD-Ventricular Fibrillation 0 [facility] Implant Date 07/03/2005 [facility] Implant Date 11/30/2002 [facility] Lead Impedance (LV) 4047 ohm [facility] Lead Impedance (RV) 836 ohm [facility] Lead Impedance High Voltage 54 ohm [facility] Lead1 Mfg MDT [facility] Lead2 Mfg MDT [facility] Lead3 Mfg GDT [facility] Location LV [facility] Location RA [facility] Location RV [facility] Lower Rate (bpm) 60 {beats}/min [facility] LV PACING % 0 % [facility] Max Sensor Rate (bpm) 90 {beats}/min [facility] MDT_PROG_TACHY_ZONE_DE TECTIONS_STATUS ENABLED [facility] Model [id number] Viva XT [place] AGRICULTURAL AGENT-D [facility] Model 4196 Attain Ability MRI SureScan [facility] Model 5076 CapSureFix Novus [facility] Model 0144 [employer] Endurance Rx [facility] Pacing Mode DDDR [facility] Serial Number [id number] [facility] Serial Number [id number] [facility] Serial Number [id number] [facility] Serial Number [id number] [facility] Test Charge Energy 18 J [facility] Test Charge Time 4.324 [facility] Therapy Status (Vent) Enabled [facility] Thresh RA Capture Amplitude (volts) 0.625 V [facility] Thresh RA Capture Duration (ms) 0.4 ms [facility] Thresh RA Sensing Amplitude (mvolts) 2 mV [facility] Thresh RV Capture Amplitude (VOLTS) 1.375 V [facility] Thresh RV Capture Duration (MS) 0.4 ms [facility] Thresh RV Sensing Amplitude (MVOLTS) 10.125 mV [facility] Tracking Rate (bpm) 90 {beats}/min [facility] VF Zone Detection Interval 450 ms [facility] VF Zone Therapy Configuration 2 ATP(s) + 0 Shock(s) [facility] No Panel Informationon 01-14 BLANK _ [facility] ICD-ATRIALTACHYCARDIA 0 [facility] ICD-Fast Ventricular Tachycardia 0 [facility] Implant Date 09/23/2016 [facility] Prothrombin Time INRon 12-23 INR Coag (PPP) [Relative time] 3.3 {INR} [employer] Other [facility] Other Prothrombin Time INRon 12-09 INR Coag (PPP) [Relative time] 1.2 {INR} [employer] Other Prothrombin Time INR [employer] Other Office Visit (Cardiology)on 12-05-2021 Follow-up visit [...] Lab Procedures; Status:Active - Retrospective Authorization; Requested for:[id number]; Atrial flutter, unspecified type, Pre-operative cardiovascular examination Complete Blood Count + Differential; Status:Active - Retrospective Authorization; Requested for:[id number]; Complete Blood Count; Status:Active - Retrospective Authorization; Requested for:[id number]; CORONAVIRUS 2019 RNA BY PCR, SCREEN ASYMPTOMATIC AMBULATORY; Status:Hold For - Specimen/Data Collection,Retrospective Authorization; Requested for:05Dec2021; ? : Unknown RESIDENT IN CONGREGATE CARE SETTING? : Unknown ICU? : No HOSPITALIZED (OR PLANNED TO BE ADMITTED)? : No SYMPTOMATIC DEFINED BY CDC? : No EMPLOYED IN HEALTHCARE? : Unknown FIRST COVID NASAL SWAB TEST? : Unknown PT/INR; Status:Active - Retrospective Authorization; Requested for:[id number]; Atrial tachycardia Transesophageal Echo; Status:Hold For - Scheduling,Retrospective Authorization; Requested for:[id number]; Health Maintenance Avoid alcoholic beverages.; Status:Complete - Retrospective Authorization; Done: [id number] Avoid foods and beverages that contain caffeine.; Status:Complete - Retrospective Authorization; Done: [id number] Begin or continue regular aerobic exercise. Gradually work up to at least 3 sessions of 30 minutes of exercise a week.; Status:Complete - Retrospective Authorization; Done: [id number] Diets that are low in carbohydrates and high in protein are very popular for weight loss.; Status:Complete - Retrospective Authorization; Done: [id number] Eat a low fat and low cholesterol diet.; Status:Complete - Retrospective Authorization; Done: [id number] Losing just 5 to 10 pounds may lower your risk of health problems.; Status:Complete - Retrospective Authorization; Done: [id number] Please bring all medicines, vitamins, and herbal supplements with you when you come to the office.; Status:Complete - Retrospective Authorization; Done: [id number] Restrict the salt in your diet by avoiding highly salted foods.; Status:Complete - Retrospective Authorization; Done: [id number] SocHx: Former smoker Tobacco Use Screening; Status:Complete; Done: [id number] Patient Instructions HOLD WARFARIN 4 DAYS PRIOR [...] Dr. Hoskins for possible ablation. Seen at [facility] 11/04/2021 Adult Risk Screening Initial Fall [...] atrial flutter. She has remote history of [place] , cardiogenic shock, PCI circumflex and iABP, with persistent severe LV dysfunction. She later occluded her cicumflex. Years later, she had HF and severe MR and underwent mitral valve repair at [facility]. She had recurrent VT and atrial arrhythmias, and underwent several ablations and repeat percutaneous MVR at [facility]. After her MVR and ablation in [...] a) No falls within the last year [facility] [address] DO Work Phone: Tobacco use status CP b) No -[facility] DO Work Phone: Tobacco Screening. Yes [facility] DO Work Phone: Prothrombin Time INRon 11-19 INR Coag (PPP) [Relative time] 1.59 {INR} [employer] Other Prothrombin Time INR [facility] [employer] Other Prothrombin Time INRon 11-11 INR Coag (PPP) [Relative time] 2.2 {INR} [employer] Other Prothrombin Time INR [facility] [employer] Other Prothrombin Time INRon 11-04 INR Coag (PPP) [Relative time] 1.1 {INR} [employer] Other Prothrombin Time INR [facility] [employer] Other Prothrombin Time INRon 10-29 INR Coag (PPP) [Relative time] 1.22 {INR} [employer] Other Prothrombin Time INR [facility] [employer] Other Prothrombin Time INRon 10-23 INR Coag (PPP) [Relative time] 1.29 {INR} [employer] Other Prothrombin Time INR [facility] [employer] Other Activated partial thrombopla stin time (aPTT) in platelet poor plasma by coagulation aon 10-13-2021 aPTT Coag (PPP) [Time] 31.8 s 25.1-36.5 Fi [facility] Amphetamine Screen Ql (U)on 10-13-2021 Amphetamines Ql (U) Negative Negative [facility] Automated erythrocytes count in urine sediment (number/area)on 10-13-2021 RBC Auto (Urine sed) [#/Area] 1-2 [HPF] [facility] Automated leukocytes count i n urine sediment (number/area)on 10-13-2021 WBC Auto (Urine sed) [#/Area] 20-49 [HPF] [facility] Automated urine hyaline cast s count (number/volume)on 10-13-2021 Hyaline casts Auto (U) [#/Vol] None seen [LPF] [facility] Barbiturates [Presence] in U rineon 10-13-2021 Barbiturates Ql (U) Negative Negative [facility] Basophils Auto (Bld) [#/Vol] on 10-13-2021 Basophils (Bld) [#/Vol] 0.1 10*3/uL 0.0-0.2 [facility] Basophils/100 WBC Auto (Bld) on 10-13-2021 Basophils/100 WBC (Bld) 0.9 % [facility] Benzodiazepines [Presence] i n Urineon 10-13-2021 Benzodiazepines Ql (U) Negative Negative [facility] Bilirubin Test strip Ql (U)o n 10-13-2021 Bilirubin Ql (U) Negative Negative [facility] Blood anisocytosis detection on 10-13-2021 Anisocytosis Ql (Bld) Marked [facility] Blood hemoglobin measurement (mass/volume)on 10-13-2021 Hemoglobin (Bld) [Mass/Vol] 11.7 g/dL 11.8-15.4 [facility] Blood leukocytes automated c ount (number/volume)on 10-13-2021 WBC (Bld) [#/Vol] 11.4 10*3/uL 4.5-11.0 [facility] Blood polychromasia detectio n by light microscopyon 10-13-2021 Polychromasia LM Ql (Bld) Slight [facility] Body fluid albumin measureme nt (mass/volume)on 10-13-2021 Albumin (Body fld) [Mass/Vol] 3.0 g/dL 3.2-5.5 [facility] COVID-19 SOFIAon 10-13-2021 SARS-CoV+SARS-CoV-2 (COVID-19) Ag IA.rapid Ql (Resp) Negative Negative [facility] Comment on above: This is a duplicate Maranda SARS Antigen (CAIT) result to be used for statistical tracking purpose only. Cannabinoids [Presence] in U rine by Screen methodon 10-13-2021 Cannabinoids Screen Ql (U) Positive Negative [facility] Comment on above: These are unconfirme d results and should not be used for legal purposes. Drug Cut-Off Concentration: AMPH 1000 ng/mL ALESSANDRO 200 ng/mL RHINA 200 ng/mL COCM 300 ng/mL OP 300 ng/mL PCP 25 ng/mL THC 20 ng/mL Casts typing in urine sedime nt by light microscopyon 10-13-2021 Casts LM Nom (Urine sed) None seen [LPF] None Seen [facility] Color Auto (U)on 10-13-2021 Color (U) Yellow Yellow [facility] Creatine kinase [Enzymatic a ctivity/volume] in Serum or Plasmaon 10-13-2021 CK [Catalytic activity/Vol] 61 U/L [facility] Creatinine and Glomerular fi ltration rate.predicted panel (S/P/Bld)on 10-13-2021 Creatinine [Mass/Vol] 3.62 mg/dL 0.44-1.03 [facility] Digoxin [Mass/volume] in Ser um or Plasmaon 10-13-2021 Digoxin [Mass/Vol] 8.7 ng/mL 0.9-2.[address] [facility] Comment on above: Critical valueresult calledat 1837 on 10/13/21Last dose: - Eosinophils Auto (Bld) [#/Vo l]on 10-13-2021 Eosinophils (Bld) [#/Vol] 0.0 10*3/uL 0.0-0.45 [facility] Eosinophils/100 WBC Auto (Bl d)on 02-14-2022 Eosinophils/100 WBC (Bld) 0.0 % [facility] Erythrocyte distribution wid th Auto (RBC) [Ratio]on 10-13-2021 Erythrocyte distribution width (RBC) [Ratio] 23.1 % 11.9-15.3 [facility] Estimated glomerular filtrat ion rate (GFR) non- Americanon 10-13-2021 GFR/1.73 sq M.predicted among non-blacks MDRD (S/P/Bld) [Vol rate/Area] 13 mL/Min [facility] Globulin Calc (S) [Mass/Vol] on 10-13-2021 Globulin (S) [Mass/Vol] 3.2 g/dL [facility] Haptoglobin [Mass/volume] in Serum or Plasmaon 10-13-2021 Haptoglobin [Mass/Vol] 175 mg/dL 37-246 Fi [facility] Hematocrit Auto (Bld) [Volum e fraction]on 10-13-2021 Hematocrit (Bld) [Volume fraction] 38.3 % 34.0-46.4 [facility] Hypochromia detectionon 09-30 Hypochromia Ql (Bld) Slight [facility] Ketones Auto test strip (U) [Mass/Vol]on 10-13-2021 Ketones (U) [Mass/Vol] Negative Negative [facility] - Chemistry and C hemistry - challengeon 10-13-2021 Natriuretic peptide B (Bld) [Mass/Vol] 279.0 pg/mL 5-100 [facility] - Coagulationon 0 10-13-2021 PT Coag (PPP) [Time] 23.0 s 9.0-12.9 [facility] - Drug toxicology on 10-13-2021 Opiates Ql (U) Negative Negative [facility] - Hematology and Cell countson 10-13-2021 Nucleated RBC/100 WBC (Bld) [Ratio] 0.1 % 0-0.5 [facility] Lactate dehydrogenase measur ement (enzymatic activity/volume)on 10-13-2021 LDH (Unsp spec) [Catalytic activity/Vol] 310 U/L 45-190 [facility] Lymphocytes Auto (Bld) [#/Vo l]on 10-13-2021 Lymphocytes (Bld) [#/Vol] 1.1 10*3/uL 1.00-4.8 [facility] Lymphocytes/100 WBC Auto (Bl d)on 10-13-2021 Lymphocytes/100 WBC (Bld) 9.5 % [facility] MCH Auto (RBC) [Entitic mass ]on 10-13-2021 MCH (RBC) [Entitic mass] 20.4 pg 24.7-34.3 [facility] MCHC Auto (RBC) [Mass/Vol]on 10-13-2021 MCHC (RBC) [Mass/Vol] 30.5 g/dL 32.0-35.0 [facility] MCV Auto (RBC) [Entitic vol] on 10-13-2021 MCV (RBC) [Entitic vol] 67.0 fL 80-100 [facility] Monocytes Auto (Bld) [#/Vol] on 10-13-2021 Monocytes (Bld) [#/Vol] 0.9 10*3/uL 0.0-0.8 [facility] Monocytes/100 WBC Auto (Bld) on 10-13-2021 Monocytes/100 WBC (Bld) 7.8 % [facility] Neutrophils Auto (Bld) [#/Vo l]on 10-13-2021 Neutrophils (Bld) [#/Vol] 9.3 10*3/uL 1.8-7.7 [facility] Neutrophils/100 WBC Auto (Bl d)on 10-13-2021 Neutrophils/100 WBC (Bld) 81.8 % [facility] Nitrite Test strip Ql (U)on 10-13-2021 Nitrite Ql (U) Negative Negative [facility] No Panel Informationon 10-13 Estimated GFR () 16 mL/Min [facility] Comment on above: GFR estimated refere nce range: According to KDOQI guidelines, <60 ml/min/1.73m2 is sufficient to diagnose a patient with chronic kidney disease. Microcytosis Moderate [facility] Creatinine Clearance (Chem 16.83 [facility] Platelet Estimate Decreased Normal [facility] Platelet Morphology Comment Normal Normal [facility] Schistocytes Slight [facility] Ovalocyte detectionon 2021 Ovalocytes LM Ql (Bld) Slight [facility] Phencyclidine Screen Ql (U)o n 10-13-2021 Phencyclidine Ql (U) Negative Negative [facility] Platelet mean volume Auto (B ld) [Entitic vol]on 10-13-2021 Platelet mean volume (Bld) [Entitic vol] 9.0 fL 6.3-10.7 [facility] Platelet poor plasma interna tional normalized ratio (INR) by coagulation assay (relaton 10-13-2021 INR Coag (PPP) [Relative time] 2.0 {INR} [facility] Comment on above: INR Therapeutic [...] Platelets (Bld) [#/Vol] 29 10*3/uL 150-450 [facility] Comment on above: Results calledat 151 0 on 10/13/21 Protein Auto test strip (U) [Mass/Vol]on 10-13-2021 Protein (U) [Mass/Vol] Negative Negative [facility] Protein [Mass/volume] in Ser um or Plasmaon 10-13-2021 Protein [Mass/Vol] 6.2 g/dL 6.1-7.[address] [facility] RBC Auto (Bld) [#/Vol]on RBC (Bld) [#/Vol] 5.72 10*6/uL 3.60-5.00 [facility] RBC morphologyon 10-13-2021 RBC morphology finding Nom (Bld) N/A [facility] Serum or plasma alanine hernandez otransferase measurement without P-5'-P (enzymatic activion 10-13-2021 ALT No additional P-5'-P [Catalytic activity/Vol] 12 U/L 10-60 [facility] Serum or plasma albumin/glob ulin mass ratioon 10-13-2021 Albumin/Globulin [Mass ratio] 0.9 {ratio} [facility] Serum or plasma alkaline rosanna sphatase measurement (enzymatic activity/volume)on 10-13-2021 ALP [Catalytic activity/Vol] 147 U/L 32-92 [facility] Serum or plasma aspartate am inotransferase measurement (enzymatic activity/volume)on 10-13-2021 AST [Catalytic activity/Vol] 26 U/L 10-42 [facility] Serum or plasma calcium jackie urement (mass/volume)on 10-13-2021 Calcium [Mass/Vol] 8.2 mg/dL 8.2-10.[address] [facility] Serum or plasma chloride jose antonio surement (moles/volume)on 10-13-2021 Chloride [Moles/Vol] 91 mmol/L 95-114 [facility] Serum or plasma creatine kin ase MB (CKMB)/total creatine kinase (CK) ratio by calculaon 10-13-2021 CK.MB Calc [Catalytic fraction] 17.3 % 0.00-2.50 [facility] Serum or plasma creatine kin ase MB measurement (mass/volume)on 10-13-2021 CK.MB [Mass/Vol] 10.6 ng/mL 0.6-6.3 [facility] Serum or plasma glucose jackie urement (mass/volume)on 10-13-2021 Glucose [Mass/Vol] 98 mg/dL 70-[address] [facility] Comment on above: ADA recommended refe rence rangeRandom Glucose Reference Range is dependent on time and content of last meal. Glucose of more than 200 mg/dL in a nonstressed, ambulatory subject supports the diagnosis of Diabetes Mellitus. Serum or plasma potassium me asurement (moles/volume)on 10-13-2021 Potassium [Moles/Vol] 3.3 mmol/L 3.5-5.1 [facility] Serum or plasma sodium measu rement (moles/volume)on 10-13-2021 Sodium [Moles/Vol] 130 mmol/L 136-[address] [facility] Serum or plasma total biliru bin measurement (mass/volume)on 10-13-2021 Bilirubin [Mass/Vol] 0.6 mg/dL 0.3-1.2 [facility] Serum or plasma total carbon dioxide measurement (moles/volume)on 10-13-2021 CO2 [Moles/Vol] 23.0 mmol/L 22.0-30.0 [facility] Serum or plasma urea nitroge n measurement (mass/volume)on 10-13-2021 Urea nitrogen [Mass/Vol] 51 mg/dL 9-23 [facility] Specific gravity Auto test s trip (U) [Rel density]on 10-13-2021 Specific gravity (U) [Rel density] 1.007 1.001-1.03 0 [facility] Squamous epithelial cells de tection in urine sediment by light microscopyon 10-13-2021 Epithelial cells.squamous LM Ql (Urine sed) 10-19 [HPF] [facility] Teardrop cell detectionon Dacrocytes LM Ql (Bld) Slight [facility] Trichomonas vaginalis detect ion in urine sediment by light microscopyon 10-13-2021 T. vaginalis LM Ql (Urine sed) 3-4 [HPF] None Seen [facility] Troponin I.cardiac [Mass/vol ume] in Serum or Plasma by High sensitivity methodon 10-13-2021 Troponin I.cardiac High sensitivity method [Mass/Vol] 139 pg/mL 0-15 [facility] Comment on above: Critical valueresult calledat 1909 on 10/13/21 Urine bacteria detection by automated methodon 10-13-2021 Bacteria Auto Ql (U) None seen None Seen [facility] Urine clarity by refractomet ry automatedon 10-13-2021 Clarity Refractometry automated (U) Cloudy Clear [facility] Urine cocaine detectionon Cocaine Ql (U) Negative Negative [facility] Urine glucose measurement by automated test strip (mass/volume)on 10-13-2021 Glucose Auto test strip (U) [Mass/Vol] Normal mg/dL Normal [facility] Urine hemoglobin detection b y automated test stripon 10-13-2021 Hemoglobin Auto test strip Ql (U) Trace Negative [facility] Urine lactic acid measuremen ton 10-13-2021 Lactate (U) [Moles/Vol] 1.5 mmol/L [facility] Urine leukocyte esterase det ection by automated test stripon 10-13-2021 Leukocyte esterase Auto test strip Ql (U) 3+ Negative [facility] Urobilinogen Auto test strip (U) [Mass/Vol]on 10-13-2021 Urobilinogen (U) [Mass/Vol] Normal mg/dL Normal [facility] pH Auto test strip (U)on pH (U) 5.5 [pH] 5.0-9.0 [facility] Prothrombin Time INRon 09-04 Prothrombin Time INR 1.0 [facility] [employer] Other Prothrombin Time INRon 07-17 INR Coag (PPP) [Relative time] 2.0 {INR} [employer] Other Prothrombin Time INR [employer] Other Prothrombin Time INRon 06-30 INR Coag (PPP) [Relative time] 4.4 {INR} [employer] Other Prothrombin Time INR [employer] [employer] Other Prothrombin Time INRon 06-09 INR Coag (PPP) [Relative time] 4.9 {INR} [employer] Other Prothrombin Time INR [employer] Other Laboratory - Coagulationon 0 12-23-2020 PT Coag (PPP) [Time] 314.1 s 9.0-12.9 [facility] Comment on above: Results calledat 111 7 on 12/23/20 Platelet poor plasma interna tional normalized ratio (INR) by coagulation assay (relaton 12-23-2020 INR Coag (PPP) [Relative time] 27.1 {INR} [facility] Comment on above: Results calledat [...] Basophils (Bld) [#/Vol] 0.1 10*3/uL 0.0-0.2 [facility] Basophils/100 WBC Auto (Bld) on 11-25-2020 Basophils/100 WBC (Bld) 1.7 % [facility] Blood anisocytosis detection on 11-25-2020 Anisocytosis Ql (Bld) Marked [facility] Blood hemoglobin measurement (mass/volume)on 11-25-2020 Hemoglobin (Bld) [Mass/Vol] 8.3 g/dL 11.8-15.4 [facility] Blood leukocytes automated c ount (number/volume)on 11-25-2020 WBC (Bld) [#/Vol] 8.5 10*3/uL 4.5-11.[address] [facility] Blood polychromasia detectio n by light microscopyon 11-25-2020 Polychromasia LM Ql (Bld) Moderate [facility] Creatinine and Glomerular fi ltration rate.predicted panel (S/P/Bld)on 11-25-2020 Creatinine [Mass/Vol] 0.79 mg/dL 0.44-1.03 [facility] Eosinophils Auto (Bld) [#/Vo l]on 11-25-2020 Eosinophils (Bld) [#/Vol] 0.3 10*3/uL 0.0-0.45 [facility] Eosinophils/100 WBC Auto (Bl d)on 11-25-2020 Eosinophils/100 WBC (Bld) 3.3 % [facility] Erythrocyte distribution wid th Auto (RBC) [Ratio]on 11-25-2020 Erythrocyte distribution width (RBC) [Ratio] 21.0 % 11.9-15.3 [facility] GFR/1.73 sq M.predicted emily g non-blacks MDRD (S/P/Bld) [Vol rate/Area]on 11-25-2020 GFR/1.73 sq M predicted among non-blacks MDRD (S/P/Bld) [Vol rate/Area] > 60 mL/Min [facility] HCG ( test) IA.rapi d Ql (U)on 11-25-2020 HCG ( test) Ql (U) Negative [facility] Hematocrit Auto (Bld) [Volum e fraction]on 11-25-2020 Hematocrit (Bld) [Volume fraction] 26.3 % 34.0-46.4 [facility] Hematologyon 11-25-2020 PT Coag (PPP) [Time] 13.6 s 9.0-12.9 [facility] Platelets (Bld) [#/Vol] Normal Normal [facility] Hypochromia detectionon 10-29 Hypochromia Ql (Bld) Moderate [facility] Lymphocytes Auto (Bld) [#/Vo l]on 11-25-2020 Lymphocytes (Bld) [#/Vol] 1.9 10*3/uL 1.00-4.8 [facility] Lymphocytes/100 WBC Auto (Bl d)on 11-25-2020 Lymphocytes/100 WBC (Bld) 22.6 % [facility] MCH Auto (RBC) [Entitic mass ]on 11-25-2020 MCH (RBC) [Entitic mass] 21.5 pg 24.7-34.3 [facility] MCHC Auto (RBC) [Mass/Vol]on 11-25-2020 MCHC (RBC) [Mass/Vol] 31.5 g/dL 32.0-35.0 [facility] MCV Auto (RBC) [Entitic vol] on 11-25-2020 MCV (RBC) [Entitic vol] 68.2 fL 80-100 [facility] Monocytes Auto (Bld) [#/Vol] on 11-25-2020 Monocytes (Bld) [#/Vol] 0.8 10*3/uL 0.0-0.8 [facility] Monocytes/100 WBC Auto (Bld) on 11-25-2020 Monocytes/100 WBC (Bld) 8.8 % [facility] Neutrophils Auto (Bld) [#/Vo l]on 11-25-2020 Neutrophils (Bld) [#/Vol] 5.4 10*3/uL 1.8-7.7 [facility] Neutrophils/100 WBC Auto (Bl d)on 11-25-2020 Neutrophils/100 WBC (Bld) 63.6 % [facility] No Panel Informationon 11-25 Estimated GFR () > 60 mL/Min [facility] Comment on above: GFR estimated refere nce range: According to KDOQI guidelines, <60 ml/min/1.73m2 is sufficient to diagnose a patient with chronic kidney disease. Platelet Estimate Normal Normal [facility] Otheron 11-25-2020 GFR/1.73 sq M.predicted MDRD (S/P/Bld) [Vol rate/Area] > 60 mL/Min [facility] Comment on above: GFR estimated refere nce range: According to KDOQI guidelines, <60 ml/min/1.73m2 is sufficient to diagnose a patient with chronic kidney disease. Microcytosis Moderate [facility] Nucleated RBC/100 WBC (Bld) [Ratio] 0.2 % 0-0.5 [facility] Creatinine Clearance (Chem 84.61 [facility] Platelet Morphology Comment Normal Normal [facility] Poikilocytosis Slight [facility] Schistocytes Slight [facility] Ovalocyte detectionon 2020 Ovalocytes LM Ql (Bld) Slight [facility] Platelet mean volume Auto (B ld) [Entitic vol]on 11-25-2020 Platelet mean volume (Bld) [Entitic vol] 8.8 fL 6.3-10.7 [facility] Platelet poor plasma interna tional normalized ratio (INR) by coagulation assay (relaton 11-25-2020 INR Coag (PPP) [Relative time] 1.2 {INR} [facility] Comment on above: INR Therapeutic [...] Platelets (Bld) [#/Vol] 318 10*3/uL 150-450 [facility] RBC Auto (Bld) [#/Vol]on RBC (Bld) [#/Vol] 3.85 10*6/uL 3.60-5.00 [facility] RBC morphologyon 11-25-2020 RBC morphology finding Nom (Bld) N/A [facility] Serum or plasma calcium jackie urement (mass/volume)on 11-25-2020 Calcium [Mass/Vol] 8.6 mg/dL 8.2-10.[address] [facility] Serum or plasma chloride jose antonio surement (moles/volume)on 11-25-2020 Chloride [Moles/Vol] 102 mmol/L 95-114 [facility] Serum or plasma glucose jackie urement (mass/volume)on 11-25-2020 Glucose [Mass/Vol] 87 mg/dL 70-[address] [facility] Comment on above: ADA recommended refe rence rangeRandom Glucose Reference Range is dependent on time and content of last meal. Glucose of more than 200 mg/dL in a nonstressed, ambulatory subject supports the diagnosis of Diabetes Mellitus. Serum or plasma potassium me asurement (moles/volume)on 11-25-2020 Potassium [Moles/Vol] 3.9 mmol/L 3.5-5.1 [facility] Serum or plasma sodium measu rement (moles/volume)on 11-25-2020 Sodium [Moles/Vol] 135 mmol/L 136-[address] [facility] Serum or plasma total carbon dioxide measurement (moles/volume)on 11-25-2020 CO2 [Moles/Vol] 22.7 mmol/L 22.0-30.0 [facility] Serum or plasma urea nitroge n measurement (mass/volume)on 11-25-2020 Urea nitrogen [Mass/Vol] 8 mg/dL 9-23 [facility] Target cellson 11-25-2020 Target cells LM Ql (Bld) Slight [facility] Urine human chorionic gonado tropin (hCG) detection by immunoassayon 11-25-2020 HCG ( test) Ql (U) Negative [facility] Creatine kinase [Enzymatic a ctivity/volume] in Serum or Plasmaon 11-24-2020 CK [Catalytic activity/Vol] 54 U/L 22 [facility] Otheron 11-24-2020 CBC Comment See comment [facility] Comment on above: There is significant microcytosis which suggests the possibility of iron deficiency. Consider serum ferritin and iron studies. Serum or plasma cardiac trop onin I measurement (mass/volume)on 11-24-2020 Troponin I.cardiac [Mass/Vol] ng/mL 0-0.02 [facility] Comment on above: [place] Cut off value > or equal to 0.03 ng/mL in conjunction with clinical conditions of myocardial infarction.([email or web address]) Troponin I.cardiac [Mass/Vol] ng/mL 0-0.02 [facility] Comment on above: [place] Cut off value > or equal to 0.03 ng/mL in conjunction with clinical conditions of myocardial infarction.([email or web address]) Serum or plasma creatine kin ase MB (CKMB)/total creatine kinase (CK) ratio by calculaon 11-24-2020 CK.MB Calc [Catalytic fraction] 3.8 % 0.00-2.50 [facility] Serum or plasma creatine kin ase MB measurement (mass/volume)on 11-24-2020 CK.MB [Mass/Vol] 2.1 ng/mL 0.6-6.3 [facility] Teardrop cell detectionon Dacrocytes LM Ql (Bld) Rare Fi [facility] Activated partial thrombopla stin time (aPTT) in platelet poor plasma by coagulation aon 11-23-2020 aPTT Coag (PPP) [Time] 92.8 s 25.1-36.5 [facility] Comment on above: Critical valueresult calledat 1511 on 11/23/20 Automated basophil %on 11-23 Basophils/100 WBC (Bld) 1.1 % [facility] Automated basophil counton 0 11-23-2020 Basophils (Bld) [#/Vol] 0.2 10*3/uL 0.0-0.2 [facility] Automated blood lymphocyte c ount (number/volume)on 11-23-2020 Lymphocytes (Bld) [#/Vol] 1.5 10*3/uL 1.00-4.8 [facility] Automated blood lymphocyte c ount as percentage of total leukocyteson 11-23-2020 Lymphocytes/100 WBC (Bld) 10.4 % [facility] Automated blood monocyte cou nton 11-23-2020 Monocytes (Bld) [#/Vol] 1.5 10*3/uL 0.0-0.8 [facility] Automated blood platelet cou nt (count/volume)on 11-23-2020 Platelets (Bld) [#/Vol] 327 10*3/uL 150-450 [facility] Automated blood platelet jose antonio n volume measurementon 11-23-2020 Platelet mean volume (Bld) [Entitic vol] 8.1 fL 6.3-10.7 [facility] Automated eosinophil %on Eosinophils/100 WBC (Bld) 1.5 % [facility] Automated eosinophil counton 11-23-2020 Eosinophils (Bld) [#/Vol] 0.2 10*3/uL 0.0-0.45 [facility] Automated erythrocyte distri bution width ratioon 11-23-2020 Erythrocyte distribution width (RBC) [Ratio] 21.1 % 11.9-15.3 [facility] Automated erythrocyte mean c orpuscular hemoglobin (mass per erythrocyte)on 11-23-2020 MCH (RBC) [Entitic mass] 21.2 pg 24.7-34.3 [facility] Automated erythrocyte mean c orpuscular hemoglobin concentration measurement (mass/volon 11-23-2020 MCHC (RBC) [Mass/Vol] 31.0 g/dL 32.0-35.0 [facility] Automated erythrocyte mean c orpuscular volumeon 11-23-2020 MCV (RBC) [Entitic vol] 68.4 fL 80-100 [facility] Automated erythrocytes count in urine sediment (number/area)on 11-23-2020 RBC Auto (Urine sed) [#/Area] 20-49 [HPF] [facility] Automated leukocytes count i n urine sediment (number/area)on 11-23-2020 WBC Auto (Urine sed) [#/Area] 50-100 [HPF] [facility] Automated monocyte %on 11-23 Monocytes/100 WBC (Bld) 9.8 % [facility] Automated neutrophil %on Neutrophils/100 WBC (Bld) 77.2 % [facility] Bilirubin Test strip Ql (U)o n 11-23-2020 Bilirubin Ql (U) Negative Negative [facility] Blood anisocytosis detection on 11-23-2020 Anisocytosis Ql (Bld) Moderate [facility] Blood erythrocytes automated count (number/volume)on 11-23-2020 RBC (Bld) [#/Vol] 3.91 10*6/uL 3.60-5.00 [facility] Blood hemoglobin measurement (mass/volume)on 11-23-2020 Hemoglobin (Bld) [Mass/Vol] 8.3 g/dL 11.8-15.4 [facility] Blood leukocytes automated c ount (number/volume)on 11-23-2020 WBC (Bld) [#/Vol] 14.9 10*3/uL 4.5-11.0 [facility] Blood neutrophil count by au tomated method (number/volume)on 11-23-2020 Neutrophils (Bld) [#/Vol] 11.5 10*3/uL 1.8-7.7 [facility] Blood polychromasia detectio n by light microscopyon 11-23-2020 Polychromasia LM Ql (Bld) Slight [facility] COVID-19 Positive/Negativeon 11-23-2020 COVID-19 Positive/Negative Negative Negative [facility] Comment on above: Reference: NegativeT esting for SARS-CoV-2 by RT-PCRThis test was developed and its performance characteristics determined by [employer] ([place]) and validated at the [facility]. This test has not been FDA [...] gene ADITI+probe Ql (Resp) Negative Negative [facility] Comment on above: Reference: NegativeT esting for SARS-CoV-2 by RT-PCRThis test was developed and its performance characteristics determined by [employer] ([place]) and validated at the [facility]. This test has not been FDA [...] COVID-19 SOFIAon 11-23-2020 COVID-19 MARANDA Negative Negative [facility] Comment on above: This is a duplicate Maranda SARS Antigen (CAIT) result to be used for statistical tracking purpose only. SARS-CoV+SARS-CoV-2 (COVID-19) Ag IA.rapid Ql (Resp) Negative Negative [facility] Comment on above: This is a duplicate Maranda SARS Antigen (CAIT) result to be used for statistical tracking purpose only. CT biopsyon 11-23-2020 Transferrin [Mass/Vol] 321 mg/dL 180-380 [facility] 11-23-2020 Natriuretic peptide B (Bld) [Mass/Vol] 859.0 pg/mL 5-100 [facility] Color Auto (U)on 11-23-2020 Color (U) Yellow Yellow [facility] Creatine kinase [Enzymatic a ctivity/volume] in Serum or Plasmaon 11-23-2020 CK [Catalytic activity/Vol] 66 U/L 22-269 [facility] Estimated glomerular filtrat ion rate (GFR) non- Americanon 11-23-2020 GFR/1.73 sq M predicted among non-blacks MDRD (S/P/Bld) [Vol rate/Area] > 60 mL/Min [facility] Ferritin [Mass/volume] in Se rum or Plasmaon 11-23-2020 Ferritin [Mass/Vol] 39.9 ng/mL 11-306.8 [facility] Folate [Mass/volume] in Seru m or Plasmaon 11-23-2020 Folate [Mass/Vol] ng/mL >5.9 [facility] Comment on above: Folate reference ran ge: >5.9 ng/mlThe WHO technical consultation on folate and vitamin [id number] has determined that folate concentrations lessthan 4 ng/ml are considered deficient. Folate [Mass/Vol] ng/mL >5.9 [facility] Comment on above: Folate reference ran ge: >5.9 ng/mlThe WHO technical consultation on folate and vitamin [id number] has determined that folate concentrations lessthan 4 ng/ml are considered deficient. Hematocrit [Volume Fraction] of Blood by Automated counton 11-23-2020 Hematocrit (Bld) [Volume fraction] 26.7 % 34.0-46.4 [facility] Hematologyon 11-23-2020 Platelets (Bld) [#/Vol] Normal Normal [facility] PT Coag (PPP) [Time] 189.6 s 9.0-12.9 [facility] Hypochromia detectionon 10-29 Hypochromia Ql (Bld) Moderate [facility] Iron [Mass/volume] in Serum or Plasmaon 11-23-2020 Iron [Mass/Vol] 19 ug/dL 40-150 [facility] Iron binding capacity [Mass/ volume] in Serum or Plasmaon 11-23-2020 Iron binding capacity [Mass/Vol] 449 ug/dL 255-450 [facility] Iron saturation [Mass Fracti on] in Serum or Plasmaon 11-23-2020 Iron saturation [Mass fraction] 4.0 % 20-50 [facility] Ketones Auto test strip (U) [Mass/Vol]on 11-23-2020 Ketones (U) [Mass/Vol] Negative Negative [facility] - Microbiology an d Antimicrobial susceptibilityon 11-23-2020 SARS-CoV-2 (COVID-19) RNA ADITI+probe Ql (Unsp spec) N/A [facility] Metabolic Panelon 11-23-2020 Magnesium [Mass/Vol] 1.8 mg/dL 1.6-2.6 [facility] Nitrite Test strip Ql (U)on 11-23-2020 Nitrite Ql (U) Positive Negative [facility] Otheron 11-23-2020 Absolute Reticulocyte Count 0.104 10*6/uL 0.024-0.08 4 [facility] Cobalamin (Vitamin B12) [Mass/Vol] 275 pg/mL 180-914 [facility] Percent Reticulocyte Count 2.6 % 0.5-1.5 [facility] Coronavirus 2019 PCR Interp N/A [facility] SARS Antigen (LFIA) [facility] Crenated Cell Slight [facility] GFR/1.73 sq M.predicted MDRD (S/P/Bld) [Vol rate/Area] > 60 mL/Min [facility] Comment on above: GFR estimated refere nce range: According to KDOQI guidelines, <60 ml/min/1.73m2 is sufficient to diagnose a patient with chronic kidney disease. Microcytosis Moderate [facility] Nucleated RBC/100 WBC (Bld) [Ratio] 0.1 % 0-0.5 [facility] Creatinine Clearance (Chem 74.80 [facility] Platelet Morphology Comment Normal Normal [facility] Poikilocytosis Slight [facility] Schistocytes Rare [facility] Ovalocyte detectionon 2020 Ovalocytes LM Ql (Bld) Slight [facility] Platelet poor plasma interna tional normalized ratio (INR) by coagulation assay (relaton 11-23-2020 INR Coag (PPP) [Relative time] 16.6 {INR} [facility] Comment on above: Critical valueresult [...] 11-23-2020 Protein (U) [Mass/Vol] Negative Negative Fi [facility] RBC morphologyon 11-23-2020 RBC morphology finding Nom (Bld) N/A [facility] Serum or plasma calcium jackie urement (mass/volume)on 11-23-2020 Calcium [Mass/Vol] 8.4 mg/dL 8.2-10.[address] [facility] Serum or plasma cardiac trop onin I measurement (mass/volume)on 11-23-2020 Troponin I.cardiac [Mass/Vol] ng/mL 0-0.02 [facility] Comment on above: [place] Cut off value > or equal to 0.03 ng/mL in conjunction with clinical conditions of myocardial infarction.([email or web address]) Serum or plasma chloride jose antonio surement (moles/volume)on 11-23-2020 Chloride [Moles/Vol] 104 mmol/L 95-114 [facility] Serum or plasma creatine kin ase MB (CKMB)/total creatine kinase (CK) ratio by calculaon 11-23-2020 CK.MB Calc [Catalytic fraction] 2.8 % 0.00-2.50 [facility] Serum or plasma creatine kin ase MB measurement (mass/volume)on 11-23-2020 CK.MB [Mass/Vol] 1.9 ng/mL 0.6-6.3 [facility] Serum or plasma creatinine m easurement with calculation of estimated glomerular filtron 11-23-2020 Creatinine [Mass/Vol] 0.83 mg/dL 0.44-1.03 [facility] Serum or plasma glucose jackie urement (mass/volume)on 11-23-2020 Glucose [Mass/Vol] 126 mg/dL 70-[address] [facility] Comment on above: ADA recommended refe rence rangeRandom Glucose Reference Range is dependent on time and content of last meal. Glucose of more than 200 mg/dL in a nonstressed, ambulatory subject supports the diagnosis of Diabetes Mellitus. Serum or plasma potassium me asurement (moles/volume)on 11-23-2020 Potassium [Moles/Vol] 3.8 mmol/L 3.5-5.1 [facility] Serum or plasma sodium measu rement (moles/volume)on 11-23-2020 Sodium [Moles/Vol] 135 mmol/L 136-[address] [facility] Serum or plasma total carbon dioxide measurement (moles/volume)on 11-23-2020 CO2 [Moles/Vol] 22.0 mmol/L 22.0-30.0 [facility] Serum or plasma urea nitroge n measurement (mass/volume)on 11-23-2020 Urea nitrogen [Mass/Vol] 9 mg/dL 9-23 [facility] Specific gravity Auto test s trip (U) [Rel density]on 11-23-2020 Specific gravity (U) [Rel density] 1.007 1.001-1.03 0 [facility] Squamous epithelial cells de tection in urine sediment by light microscopyon 11-23-2020 Epithelial cells.squamous LM Ql (Urine sed) 3-4 [HPF] [facility] Target cellson 11-23-2020 Target cells LM Ql (Bld) Slight [facility] Teardrop cell detectionon Dacrocytes LM Ql (Bld) Rare [facility] Urinalysison 11-23-2020 Hyaline casts LM Ql (Urine sed) 0-8 [LPF] [facility] Urine bacteria detection by automated methodon 11-23-2020 Bacteria Auto Ql (U) 4+ None Seen [facility] Urine clarity by refractomet ry automatedon 11-23-2020 Clarity Refractometry automated (U) Clear Clear [facility] Urine culture routineon 10-29 Bacteria identified Cx Nom (U) Escherichia coli [facility] Urine glucose measurement by automated test strip (mass/volume)on 11-23-2020 Glucose Auto test strip (U) [Mass/Vol] Normal mg/dL Normal [facility] Urine hemoglobin detection b y automated test stripon 11-23-2020 Hemoglobin Auto test strip Ql (U) 3+ Negative [facility] Urine ketones measurement by automated test strip (mass/volume)on 11-23-2020 Ketones (U) [Mass/Vol] Negative Negative [facility] Urine leukocyte esterase det ection by automated test stripon 11-23-2020 Leukocyte esterase Auto test strip Ql (U) 4+ Negative [facility] Urine nitrite detection by t est stripon 11-23-2020 Nitrite Ql (U) Positive Negative [facility] Urine protein measurement by automated test strip (mass/volume)on 11-23-2020 Protein (U) [Mass/Vol] Negative Negative [facility] Urine total bilirubin detect ion by test stripon 11-23-2020 Bilirubin Ql (U) Negative Negative [facility] Urobilinogen Auto test strip (U) [Mass/Vol]on 11-23-2020 Urobilinogen (U) [Mass/Vol] Normal mg/dL Normal [facility] pH Auto test strip (U)on pH (U) 6.5 [pH] 5.0-9.0 [facility] Activated partial thrombopla stin time (aPTT) in platelet poor plasma by coagulation aon 08-16-2020 aPTT Coag (PPP) [Time] 55.8 s 23.0-35.0 [facility] Automated basophil %on 08-16 Basophils/100 WBC (Bld) 0.9 % [facility] Automated basophil counton 1 10-17-2019 Basophils (Bld) [#/Vol] 0.1 10*3/uL 0.0-0.2 [facility] Automated blood lymphocyte c ount (number/volume)on 08-16-2020 Lymphocytes (Bld) [#/Vol] 1.6 10*3/uL 1.00-4.8 [facility] Automated blood lymphocyte c ount as percentage of total leukocyteson 08-16-2020 Lymphocytes/100 WBC (Bld) 17.3 % [facility] Automated blood monocyte cou nton 08-16-2020 Monocytes (Bld) [#/Vol] 0.7 10*3/uL 0.0-0.8 [facility] Automated blood platelet cou nt (count/volume)on 08-16-2020 Platelets (Bld) [#/Vol] 305 10*3/uL 150-450 [facility] Automated blood platelet jose antonio n volume measurementon 08-16-2020 Platelet mean volume (Bld) [Entitic vol] 9.1 fL 6.3-10.7 [facility] Automated eosinophil %on Eosinophils/100 WBC (Bld) 1.6 % [facility] Automated eosinophil counton 08-16-2020 Eosinophils (Bld) [#/Vol] 0.1 10*3/uL 0.0-0.45 [facility] Automated erythrocyte distri bution width ratioon 08-16-2020 Erythrocyte distribution width (RBC) [Ratio] 18.8 % 11.9-15.3 [facility] Automated erythrocyte mean c orpuscular hemoglobin (mass per erythrocyte)on 08-16-2020 MCH (RBC) [Entitic mass] 23.9 pg 24.7-34.3 [facility] Automated erythrocyte mean c orpuscular hemoglobin concentration measurement (mass/volon 08-16-2020 MCHC (RBC) [Mass/Vol] 31.1 g/dL 32.0-35.0 [facility] Automated erythrocyte mean c orpuscular volumeon 08-16-2020 MCV (RBC) [Entitic vol] 76.9 fL 80-100 [facility] Automated erythrocytes count in urine sediment (number/area)on 08-16-2020 RBC Auto (Urine sed) [#/Area] 10-19 [HPF] [facility] Automated leukocytes count i n urine sediment (number/area)on 08-16-2020 WBC Auto (Urine sed) [#/Area] Innumerable [HPF] [facility] Automated monocyte %on 08-16 Monocytes/100 WBC (Bld) 7.6 % [facility] Automated neutrophil %on Neutrophils/100 WBC (Bld) 72.6 % [facility] Automated urine color determ inationon 08-16-2020 Color (U) Yellow Yellow [facility] Automated urine hyaline cast s count (number/volume)on 08-16-2020 Hyaline casts Auto (U) [#/Vol] None seen [LPF] [facility] Blood erythrocytes automated count (number/volume)on 08-16-2020 RBC (Bld) [#/Vol] 4.45 10*6/uL 3.60-5.00 [facility] Blood hemoglobin measurement (mass/volume)on 08-16-2020 Hemoglobin (Bld) [Mass/Vol] 10.7 g/dL 11.8-15.4 [facility] Blood leukocytes automated c ount (number/volume)on 08-16-2020 WBC (Bld) [#/Vol] 9.1 10*3/uL 3.8-11.[address] [facility] Blood neutrophil count by au tomated method (number/volume)on 08-16-2020 Neutrophils (Bld) [#/Vol] 6.6 10*3/uL 1.8-7.7 [facility] COVID-19 Detected/Not Detect edon 08-16-2020 COVID-19 Detected/Not Detected Not detected Not Detecte [facility] Comment on above: This is a duplicate test result based off of the RP2.1 COVID (EUA) test performed within the Microbiology department. [facility] 08-16-2020 Natriuretic peptide B (Bld) [Mass/Vol] 1123.0 pg/mL 5-100 [facility] [facility] C[facility] typing in urine sedime nt by light microscopyon 08-16-2020 Casts LM Nom (Urine sed) None seen [LPF] None Seen [facility] Creatine kinase [Enzymatic a ctivity/volume] in Serum or Plasmaon 08-16-2020 CK [Catalytic activity/Vol] 72 U/L 22-269 [facility] Estimated glomerular filtrat ion rate (GFR) non- Americanon 08-16-2020 GFR/1.73 sq M predicted among non-blacks MDRD (S/P/Bld) [Vol rate/Area] 56 mL/min/{1.73_m2} [facility] Hematocrit [Volume Fraction] of Blood by Automated counton 08-16-2020 Hematocrit (Bld) [Volume fraction] 34.2 % 34.0-46.4 [facility] Hematologyon 08-16-2020 PT Coag (PPP) [Time] 144.3 s 9.0-12.9 [facility] PT Coag (PPP) [Time] 132.6 s 9.0-12.9 [facility] Lactate dehydrogenase measur ement (enzymatic activity/volume)on 08-16-2020 LDH (Unsp spec) [Catalytic activity/Vol] 268 U/L 45-190 [facility] Metabolic Panelon 08-16-2020 Magnesium [Mass/Vol] 1.8 mg/dL 1.6-2.6 [facility] Otheron 08-16-2020 Respiratory Panel (PCR) [facility] D-Dimer Quantitative (PE/DVT) < 200 ng/mL 0-243 [facility] Comment on above: The reference [...] M.predicted MDRD (S/P/Bld) [Vol rate/Area] mL/min/{1.73_m2} [facility] Comment on above: GFR estimated refere nce range: According to KDOQI guidelines, <60 ml/min/1.73m2 is sufficient to diagnose a patient with chronic kidney disease. Nucleated RBC/100 WBC (Bld) [Ratio] 0.1 % 0-0.5 [facility] Creatinine Clearance (Chem 61.68 [facility] Platelet poor plasma interna tional normalized ratio (INR) by coagulation assay (relaton 08-16-2020 INR Coag (PPP) [Relative time] 12.6 {INR} [facility] Comment on above: Results calledat [...] Coag (PPP) [Relative time] 11.6 {INR} [facility] Comment on above: Critical valueresult [...] (mass/volume)on 08-16-2020 Calcium [Mass/Vol] 8.4 mg/dL 8.2-10.[address] [facility] Serum or plasma cardiac trop onin I measurement (mass/volume)on 08-16-2020 Troponin I.cardiac [Mass/Vol] ng/mL 0-0.02 [facility] Comment on above: [place] Cut off value > or equal to 0.03 ng/mL in conjunction with clinical conditions of myocardial infarction.([email or web address]) Serum or plasma chloride jose antonio surement (moles/volume)on 08-16-2020 Chloride [Moles/Vol] 103 mmol/L 95-114 [facility] Serum or plasma creatine kin ase MB (CKMB)/total creatine kinase (CK) ratio by calculaon 08-16-2020 CK.MB Calc [Catalytic fraction] 3.7 0.00-2.50 [facility] Serum or plasma creatine kin ase MB measurement (mass/volume)on 08-16-2020 CK.MB [Mass/Vol] 2.7 ng/mL 0.6-6.3 [facility] Serum or plasma creatinine m easurement with calculation of estimated glomerular filtron 08-16-2020 Creatinine [Mass/Vol] 1.03 mg/dL 0.44-1.03 [facility] Serum or plasma glucose jackie urement (mass/volume)on 08-16-2020 Glucose [Mass/Vol] 120 mg/dL 70-[address] [facility] Comment on above: ADA recommended refe rence rangeRandom Glucose Reference Range is dependent on time and content of last meal. Glucose of more than 200 mg/dL in a nonstressed, ambulatory subject supports the diagnosis of Diabetes Mellitus. Serum or plasma potassium me asurement (moles/volume)on 08-16-2020 Potassium [Moles/Vol] 4.3 mmol/L 3.5-5.1 [facility] Serum or plasma sodium measu rement (moles/volume)on 08-16-2020 Sodium [Moles/Vol] 140 mmol/L 136-[address] [facility] Serum or plasma total carbon dioxide measurement (moles/volume)on 08-16-2020 CO2 [Moles/Vol] 25.2 mmol/L 22.0-30.0 [facility] Serum or plasma urea nitroge n measurement (mass/volume)on 08-16-2020 Urea nitrogen [Mass/Vol] 9 mg/dL 9-23 [facility] Specific gravity of Urine by Automated test stripon 08-16-2020 Specific gravity (U) [Rel density] 1.014 1.001-1.03 0 [facility] Squamous epithelial cells de tection in urine sediment by light microscopyon 08-16-2020 Epithelial cells.squamous LM Ql (Urine sed) 5-9 [HPF] [facility] Trichomonas vaginalis detect ion in urine sediment by light microscopyon 08-16-2020 T. vaginalis LM Ql (Urine sed) 3-4 [HPF] None Seen [facility] Urine bacteria detection by automated methodon 08-16-2020 Bacteria Auto Ql (U) None seen None Seen [facility] Urine clarity by refractomet ry automatedon 08-16-2020 Clarity Refractometry automated (U) Cloudy Clear [facility] Urine glucose measurement by automated test strip (mass/volume)on 08-16-2020 Glucose Auto test strip (U) [Mass/Vol] Normal mg/dL Normal [facility] Urine hemoglobin detection b y automated test stripon 08-16-2020 Hemoglobin Auto test strip Ql (U) 1+ Negative [facility] Urine ketones measurement by automated test strip (mass/volume)on 08-16-2020 Ketones (U) [Mass/Vol] Negative Negative [facility] Urine leukocyte esterase det ection by automated test stripon 08-16-2020 Leukocyte esterase Auto test strip Ql (U) 4+ Negative [facility] Urine nitrite detection by t est stripon 08-16-2020 Nitrite Ql (U) Negative Negative [facility] Urine pH measurement by auto mated test stripon 08-16-2020 pH (U) 6.5 [pH] 5.0-9.0 [facility] Urine protein measurement by automated test strip (mass/volume)on 08-16-2020 Protein (U) [Mass/Vol] Trace mg/dL Negative [facility] Urine total bilirubin detect ion by test stripon 08-16-2020 Bilirubin Ql (U) Negative Negative [facility] Urine urobilinogen measureme nt by automated test strip (mass/volume)on 08-16-2020 Urobilinogen (U) [Mass/Vol] Normal mg/dL Normal [facility] Activated partial thrombopla stin time (aPTT) in platelet poor plasma by coagulation aon 07-26-2020 aPTT Coag (PPP) [Time] 32.4 s 23.0-35.0 [facility] Automated basophil %on 07-26 Basophils/100 WBC (Bld) 1.5 % [facility] Automated basophil counton 1 09-25-2019 Basophils (Bld) [#/Vol] 0.1 10*3/uL 0.0-0.2 [facility] Automated blood lymphocyte c ount (number/volume)on 07-26-2020 Lymphocytes (Bld) [#/Vol] 1.9 10*3/uL 1.00-4.8 [facility] Automated blood lymphocyte c ount as percentage of total leukocyteson 07-26-2020 Lymphocytes/100 WBC (Bld) 24.7 % [facility] Automated blood monocyte cou nton 07-26-2020 Monocytes (Bld) [#/Vol] 0.8 10*3/uL 0.0-0.8 [facility] Automated blood platelet cou nt (count/volume)on 07-26-2020 Platelets (Bld) [#/Vol] 207 10*3/uL 150-450 [facility] Automated blood platelet jose antonio n volume measurementon 07-26-2020 Platelet mean volume (Bld) [Entitic vol] 9.5 fL 6.3-10.7 [facility] Automated eosinophil %on Eosinophils/100 WBC (Bld) 3.4 % [facility] Automated eosinophil counton 07-26-2020 Eosinophils (Bld) [#/Vol] 0.3 10*3/uL 0.0-0.45 [facility] Automated erythrocyte distri bution width ratioon 07-26-2020 Erythrocyte distribution width (RBC) [Ratio] 20.9 % 11.9-15.3 [facility] Automated erythrocyte mean c orpuscular hemoglobin (mass per erythrocyte)on 07-26-2020 MCH (RBC) [Entitic mass] 24.3 pg 24.7-34.3 [facility] Automated erythrocyte mean c orpuscular hemoglobin concentration measurement (mass/volon 07-26-2020 MCHC (RBC) [Mass/Vol] 31.3 g/dL 32.0-35.0 [facility] Automated erythrocyte mean c orpuscular volumeon 07-26-2020 MCV (RBC) [Entitic vol] 77.8 fL 80-100 [facility] Automated monocyte %on 07-26 Monocytes/100 WBC (Bld) 10.5 % [facility] Automated neutrophil %on Neutrophils/100 WBC (Bld) 59.9 % [facility] Blood anisocytosis detection on 07-26-2020 Anisocytosis Ql (Bld) Marked [facility] Blood erythrocytes automated count (number/volume)on 07-26-2020 RBC (Bld) [#/Vol] 4.84 10*6/uL 3.60-5.00 [facility] Blood hemoglobin measurement (mass/volume)on 07-26-2020 Hemoglobin (Bld) [Mass/Vol] 11.8 g/dL 11.8-15.4 [facility] Blood leukocytes automated c ount (number/volume)on 07-26-2020 WBC (Bld) [#/Vol] 7.8 10*3/uL 4.5-11.[address] [facility] Blood neutrophil count by au tomated method (number/volume)on 07-26-2020 Neutrophils (Bld) [#/Vol] 4.7 10*3/uL 1.8-7.7 [facility] Body fluid albumin measureme nt (mass/volume)on 07-26-2020 Albumin (Body fld) [Mass/Vol] 3.5 g/dL 3.2-5.5 [facility] Creatine kinase [Enzymatic a ctivity/volume] in Serum or Plasmaon 07-26-2020 CK [Catalytic activity/Vol] 58 U/L 22- [facility] Estimated glomerular filtrat ion rate (GFR) non- Americanon 07-26-2020 GFR/1.73 sq M predicted among non-blacks MDRD (S/P/Bld) [Vol rate/Area] mL/min/{1.73_m2} [facility] Hematocrit [Volume Fraction] of Blood by Automated counton 07-26-2020 Hematocrit (Bld) [Volume fraction] 37.7 % 34.0-46.4 [facility] Hematologyon 07-26-2020 Platelets (Bld) [#/Vol] Normal Normal [facility] PT Coag (PPP) [Time] 16.1 s 9.0-12.9 [facility] Hypochromia detectionon 07-01 Hypochromia Ql (Bld) Slight [facility] Metabolic Panelon 07-26-2020 Magnesium [Mass/Vol] 1.7 mg/dL 1.6-2.6 [facility] Otheron 07-26-2020 GFR/1.73 sq M.predicted MDRD (S/P/Bld) [Vol rate/Area] mL/min/{1.73_m2} [facility] Comment on above: GFR estimated refere nce range: According to KDOQI guidelines, <60 ml/min/1.73m2 is sufficient to diagnose a patient with chronic kidney disease. Microcytosis Slight [facility] Nucleated RBC/100 WBC (Bld) [Ratio] 0.1 % 0-0.5 [facility] Creatinine Clearance (Chem 66.06 [facility] Platelet Morphology Comment Normal Normal [facility] Platelet poor plasma interna tional normalized ratio (INR) by coagulation assay (relaton 07-26-2020 INR Coag (PPP) [Relative time] 1.4 {INR} [facility] Comment on above: INR Therapeutic [...] Plasmaon 07-26-2020 Protein [Mass/Vol] 6.4 g/dL 6.1-7.[address] [facility] RBC morphologyon 07-26-2020 RBC morphology finding Nom (Bld) N/A [facility] Serum globulin measurement b y calculation (mass/volume)on 07-26-2020 Globulin (S) [Mass/Vol] 2.9 g/dL [facility] Serum or plasma alanine hernandez otransferase measurement without P-5'-P (enzymatic activion 07-26-2020 ALT No additional P-5'-P [Catalytic activity/Vol] 21 U/L 10-60 [facility] Serum or plasma albumin/glob ulin mass ratioon 07-26-2020 Albumin/Globulin [Mass ratio] 1.2 {ratio} [facility] Serum or plasma alkaline rosanna sphatase measurement (enzymatic activity/volume)on 07-26-2020 ALP [Catalytic activity/Vol] 153 U/L 32-92 [facility] Serum or plasma aspartate am inotransferase measurement (enzymatic activity/volume)on 07-26-2020 AST [Catalytic activity/Vol] 22 U/L 10-42 [facility] Serum or plasma calcium jackie urement (mass/volume)on 07-26-2020 Calcium [Mass/Vol] 8.7 mg/dL 8.2-10.[address] [facility] Serum or plasma cardiac trop onin I measurement (mass/volume)on 07-26-2020 Troponin I.cardiac [Mass/Vol] ng/mL 0-0.02 [facility] Comment on above: [place] Cut off value > or equal to 0.03 ng/mL in conjunction with clinical conditions of myocardial infarction.([email or web address]) Serum or plasma chloride jose antonio surement (moles/volume)on 07-26-2020 Chloride [Moles/Vol] 106 mmol/L 95-114 [facility] Serum or plasma creatine kin ase MB (CKMB)/total creatine kinase (CK) ratio by calculaon 07-26-2020 CK.MB Calc [Catalytic fraction] 3.7 0.00-2.50 [facility] Serum or plasma creatine kin ase MB measurement (mass/volume)on 07-26-2020 CK.MB [Mass/Vol] 2.2 ng/mL 0.6-6.3 [facility] Serum or plasma creatinine m easurement with calculation of estimated glomerular filtron 07-26-2020 Creatinine [Mass/Vol] 0.96 mg/dL 0.44-1.03 [facility] Serum or plasma glucose jackie urement (mass/volume)on 07-26-2020 Glucose [Mass/Vol] 96 mg/dL 70-[address] [facility] Comment on above: ADA recommended refe rence rangeRandom Glucose Reference Range is dependent on time and content of last meal. Glucose of more than 200 mg/dL in a nonstressed, ambulatory subject supports the diagnosis of Diabetes Mellitus. Serum or plasma potassium me asurement (moles/volume)on 07-26-2020 Potassium [Moles/Vol] 4.2 mmol/L 3.5-5.1 [facility] Serum or plasma sodium measu rement (moles/volume)on 07-26-2020 Sodium [Moles/Vol] 138 mmol/L 136-[address] [facility] Serum or plasma total biliru bin measurement (mass/volume)on 07-26-2020 Bilirubin [Mass/Vol] 0.3 mg/dL 0.3-1.2 [facility] Serum or plasma total carbon dioxide measurement (moles/volume)on 07-26-2020 CO2 [Moles/Vol] 22.5 mmol/L 22.0-30.0 [facility] Serum or plasma urea nitroge n measurement (mass/volume)on 07-26-2020 Urea nitrogen [Mass/Vol] 14 mg/dL 05-22 [facility] Activated partial thrombopla stin time (aPTT) in platelet poor plasma by coagulation aon 07-22-2020 aPTT Coag (PPP) [Time] 36.7 s 23.0-35.0 [facility] Automated basophil %on 07-22 Basophils/100 WBC (Bld) 1.1 % [facility] Automated basophil counton 1 09-21-2019 Basophils (Bld) [#/Vol] 0.1 10*3/uL 0.0-0.2 [facility] Automated blood lymphocyte c ount (number/volume)on 07-22-2020 Lymphocytes (Bld) [#/Vol] 1.8 10*3/uL 1.00-4.8 [facility] Automated blood lymphocyte c ount as percentage of total leukocyteson 07-22-2020 Lymphocytes/100 WBC (Bld) 18.8 % [facility] Automated blood monocyte cou nton 07-22-2020 Monocytes (Bld) [#/Vol] 0.9 10*3/uL 0.0-0.8 [facility] Automated blood platelet cou nt (count/volume)on 07-22-2020 Platelets (Bld) [#/Vol] 201 10*3/uL 150-450 [facility] Automated blood platelet jose antonio n volume measurementon 07-22-2020 Platelet mean volume (Bld) [Entitic vol] 9.4 fL 6.3-10.7 [facility] Automated eosinophil %on Eosinophils/100 WBC (Bld) 2.1 % [facility] Automated eosinophil counton 07-22-2020 Eosinophils (Bld) [#/Vol] 0.2 10*3/uL 0.0-0.45 [facility] Automated erythrocyte distri bution width ratioon 07-22-2020 Erythrocyte distribution width (RBC) [Ratio] 20.7 % 11.9-15.3 [facility] Automated erythrocyte mean c orpuscular hemoglobin (mass per erythrocyte)on 07-22-2020 MCH (RBC) [Entitic mass] 24.0 pg 24.7-34.3 [facility] Automated erythrocyte mean c orpuscular hemoglobin concentration measurement (mass/volon 07-22-2020 MCHC (RBC) [Mass/Vol] 31.1 g/dL 32.0-35.0 [facility] Automated erythrocyte mean c orpuscular volumeon 07-22-2020 MCV (RBC) [Entitic vol] 77.1 fL 80-100 [facility] Automated monocyte %on 07-22 Monocytes/100 WBC (Bld) 9.4 % [facility] Automated neutrophil %on Neutrophils/100 WBC (Bld) 68.6 % [facility] Blood erythrocytes automated count (number/volume)on 07-22-2020 RBC (Bld) [#/Vol] 4.68 10*6/uL 3.60-5.00 [facility] Blood hemoglobin measurement (mass/volume)on 07-22-2020 Hemoglobin (Bld) [Mass/Vol] 11.2 g/dL 11.8-15.4 [facility] Blood leukocytes automated c ount (number/volume)on 07-22-2020 WBC (Bld) [#/Vol] 9.5 10*3/uL 4.5-11.[address] [facility] Blood neutrophil count by au tomated method (number/volume)on 07-22-2020 Neutrophils (Bld) [#/Vol] 6.5 10*3/uL 1.8-7.7 [facility] Body fluid albumin measureme nt (mass/volume)on 07-22-2020 Albumin (Body fld) [Mass/Vol] 3.5 g/dL 3.2-5.5 [facility] COVID-19 SOFIAon 07-22-2020 COVID-19 MARANDA Negative Negative [facility] Comment on above: This is a duplicate test result based off of the Maranda SARS Antigen (CAIT) test performed within the Microbiology department. [facility] 07-22-2020 Natriuretic peptide B (Bld) [Mass/Vol] 508.0 pg/mL 5-100 [facility] Estimated glomerular filtrat ion rate (GFR) non- Americanon 07-22-2020 GFR/1.73 sq M predicted among non-blacks MDRD (S/P/Bld) [Vol rate/Area] 58 mL/min/{1.73_m2} [facility] Hematocrit [Volume Fraction] of Blood by Automated counton 07-22-2020 Hematocrit (Bld) [Volume fraction] 36.1 % 34.0-46.4 [facility] Hematologyon 07-22-2020 PT Coag (PPP) [Time] 33.6 s 9.0-12.9 [facility] Metabolic Panelon 07-22-2020 Magnesium [Mass/Vol] 1.9 mg/dL 1.6-2.6 [facility] Otheron 07-22-2020 SARS Antigen (LFIA) [facility] GFR/1.73 sq M.predicted MDRD (S/P/Bld) [Vol rate/Area] mL/min/{1.73_m2} [facility] Comment on above: GFR estimated refere nce range: According to KDOQI guidelines, <60 ml/min/1.73m2 is sufficient to diagnose a patient with chronic kidney disease. Nucleated RBC/100 WBC (Bld) [Ratio] 0.0 % 0-0.5 [facility] Creatinine Clearance (Chem 64.10 [facility] Platelet poor plasma interna tional normalized ratio (INR) by coagulation assay (relaton 07-22-2020 INR Coag (PPP) [Relative time] 3.0 {INR} [facility] Comment on above: INR Therapeutic [...] Plasmaon 07-22-2020 Protein [Mass/Vol] 6.3 g/dL 6.1-7.[address] [facility] Serum globulin measurement b y calculation (mass/volume)on 07-22-2020 Globulin (S) [Mass/Vol] 2.8 g/dL [facility] Serum or plasma alanine hernandez otransferase measurement without P-5'-P (enzymatic activion 07-22-2020 ALT No additional P-5'-P [Catalytic activity/Vol] 32 U/L [facility] Serum or plasma albumin/glob ulin mass ratioon 07-22-2020 Albumin/Globulin [Mass ratio] 1.3 {ratio} [facility] Serum or plasma alkaline rosanna sphatase measurement (enzymatic activity/volume)on 07-22-2020 ALP [Catalytic activity/Vol] 145 U/L [facility] Serum or plasma aspartate am inotransferase measurement (enzymatic activity/volume)on 07-22-2020 AST [Catalytic activity/Vol] 34 U/L [facility] Serum or plasma calcium jackie urement (mass/volume)on 07-22-2020 Calcium [Mass/Vol] 8.6 mg/dL 8.2-10.[address] [facility] Serum or plasma cardiac trop onin I measurement (mass/volume)on 07-22-2020 Troponin I.cardiac [Mass/Vol] ng/mL 0-0.02 [facility] Comment on above: [place] Cut off value > or equal to 0.03 ng/mL in conjunction with clinical conditions of myocardial infarction.([email or web address]) Serum or plasma chloride jose antonio surement (moles/volume)on 07-22-2020 Chloride [Moles/Vol] 102 mmol/L 95-114 [facility] Serum or plasma creatinine m easurement with calculation of estimated glomerular filtron 07-22-2020 Creatinine [Mass/Vol] 1.01 mg/dL 0.44-1.03 [facility] Serum or plasma glucose jackie urement (mass/volume)on 07-22-2020 Glucose [Mass/Vol] 100 mg/dL 70-[address] [facility] Comment on above: ADA recommended refe rence rangeRandom Glucose Reference Range is dependent on time and content of last meal. Glucose of more than 200 mg/dL in a nonstressed, ambulatory subject supports the diagnosis of Diabetes Mellitus. Serum or plasma potassium me asurement (moles/volume)on 07-22-2020 Potassium [Moles/Vol] 4.5 mmol/L 3.5-5.1 [facility] Serum or plasma sodium measu rement (moles/volume)on 07-22-2020 Sodium [Moles/Vol] 138 mmol/L 136-[address] [facility] Serum or plasma total biliru bin measurement (mass/volume)on 07-22-2020 Bilirubin [Mass/Vol] 0.3 mg/dL 0.3-1.2 [facility] Serum or plasma total carbon dioxide measurement (moles/volume)on 07-22-2020 CO2 [Moles/Vol] 24.6 mmol/L 22.0-30.0 [facility] Serum or plasma urea nitroge n measurement (mass/volume)on 07-22-2020 Urea nitrogen [Mass/Vol] 15 mg/dL 05-22 [facility] Activated partial thrombopla stin time (aPTT) in platelet poor plasma by coagulation aon 07-19-2020 aPTT Coag (PPP) [Time] 41.0 s 23.0-35.0 Fi [facility] Albumin [Mass/volume] in Ser um or Plasmaon 07-19-2020 Albumin [Mass/Vol] 3.9 g/dL 3.2-5.[address] [facility] Automated basophil %on 07-19 Basophils/100 WBC (Bld) 1.7 % [facility] Automated basophil counton 1 09-18-2019 Basophils (Bld) [#/Vol] 0.1 10*3/uL 0.0-0.2 [facility] Automated blood lymphocyte c ount (number/volume)on 07-19-2020 Lymphocytes (Bld) [#/Vol] 2.9 10*3/uL 1.00-4.8 [facility] Automated blood lymphocyte c ount as percentage of total leukocyteson 07-19-2020 Lymphocytes/100 WBC (Bld) 34.7 % [facility] Automated blood monocyte cou nton 07-19-2020 Monocytes (Bld) [#/Vol] 0.9 10*3/uL 0.0-0.8 [facility] Automated blood platelet cou nt (count/volume)on 07-19-2020 Platelets (Bld) [#/Vol] 221 10*3/uL 150-450 [facility] Automated blood platelet jose antonio n volume measurementon 07-19-2020 Platelet mean volume (Bld) [Entitic vol] 9.4 fL 6.3-10.7 [facility] Automated eosinophil %on Eosinophils/100 WBC (Bld) 3.2 % [facility] Automated eosinophil counton 07-19-2020 Eosinophils (Bld) [#/Vol] 0.3 10*3/uL 0.0-0.45 [facility] Automated erythrocyte distri bution width ratioon 07-19-2020 Erythrocyte distribution width (RBC) [Ratio] 21.2 % 11.9-15.3 [facility] Automated erythrocyte mean c orpuscular hemoglobin (mass per erythrocyte)on 07-19-2020 MCH (RBC) [Entitic mass] 24.1 pg 24.7-34.3 [facility] Automated erythrocyte mean c orpuscular hemoglobin concentration measurement (mass/volon 07-19-2020 MCHC (RBC) [Mass/Vol] 31.0 g/dL 32.0-35.0 [facility] Automated erythrocyte mean c orpuscular volumeon 07-19-2020 MCV (RBC) [Entitic vol] 77.7 fL 80-100 [facility] Automated erythrocytes count in urine sediment (number/area)on 07-19-2020 RBC Auto (Urine sed) [#/Area] 10-19 [HPF] [facility] Automated leukocytes count i n urine sediment (number/area)on 07-19-2020 WBC Auto (Urine sed) [#/Area] Innumerable [HPF] [facility] Automated monocyte %on 07-19 Monocytes/100 WBC (Bld) 11.0 % [facility] Automated neutrophil %on Neutrophils/100 WBC (Bld) 49.4 % [facility] Automated urine color determ inationon 07-19-2020 Color (U) Yellow Yellow [facility] Blood anisocytosis detection on 07-19-2020 Anisocytosis Ql (Bld) Marked [facility] Blood erythrocytes automated count (number/volume)on 07-19-2020 RBC (Bld) [#/Vol] 5.04 10*6/uL 3.60-5.00 [facility] Blood hemoglobin measurement (mass/volume)on 07-19-2020 Hemoglobin (Bld) [Mass/Vol] 12.1 g/dL 11.8-15.4 [facility] Blood leukocytes automated c ount (number/volume)on 07-19-2020 WBC (Bld) [#/Vol] 8.4 10*3/uL 4.5-11.[address] [facility] Blood neutrophil count by au tomated method (number/volume)on 07-19-2020 Neutrophils (Bld) [#/Vol] 4.2 10*3/uL 1.8-7.7 [facility] 07-19-2020 Natriuretic peptide B (Bld) [Mass/Vol] 357.0 pg/mL 5-100 [facility] Creatine kinase [Enzymatic a ctivity/volume] in Serum or Plasmaon 07-19-2020 CK [Catalytic activity/Vol] 81 U/L 22-269 [facility] Estimated glomerular filtrat ion rate (GFR) non- Americanon 07-19-2020 GFR/1.73 sq M predicted among non-blacks MDRD (S/P/Bld) [Vol rate/Area] mL/min/{1.73_m2} [facility] Hematocrit [Volume Fraction] of Blood by Automated counton 07-19-2020 Hematocrit (Bld) [Volume fraction] 39.2 % 34.0-46.4 [facility] Hematologyon 07-19-2020 Platelets (Bld) [#/Vol] Normal Normal [facility] PT Coag (PPP) [Time] 51.9 s 9.0-12.9 [facility] Metabolic Panelon 07-19-2020 Magnesium [Mass/Vol] 2.1 mg/dL 1.6-2.6 [facility] Otheron 07-19-2020 Acanthocytes Slight [facility] GFR/1.73 sq M.predicted MDRD (S/P/Bld) [Vol rate/Area] mL/min/{1.73_m2} [facility] Comment on above: GFR estimated refere nce range: According to KDOQI guidelines, <60 ml/min/1.73m2 is sufficient to diagnose a patient with chronic kidney disease. Nucleated RBC/100 WBC (Bld) [Ratio] 0.1 % 0-0.5 [facility] Creatinine Clearance (Chem 67.89 [facility] Platelet Morphology Comment Normal Normal [facility] Poikilocytosis Slight [facility] Schistocytes Slight [facility] Ovalocyte detectionon 2019 Ovalocytes LM Ql (Bld) Moderate [facility] Platelet poor plasma interna tional normalized ratio (INR) by coagulation assay (relaton 07-19-2020 INR Coag (PPP) [Relative time] 4.6 {INR} [facility] Comment on above: INR Therapeutic [...] Plasmaon 07-19-2020 Protein [Mass/Vol] 7.1 g/dL 6.1-7.[address] [facility] RBC morphologyon 07-19-2020 RBC morphology finding Nom (Bld) N/A [facility] Serum globulin measurement b y calculation (mass/volume)on 07-19-2020 Globulin (S) [Mass/Vol] 3.2 g/dL [facility] Serum or plasma alanine hernandez otransferase measurement without P-5'-P (enzymatic activion 07-19-2020 ALT No additional P-5'-P [Catalytic activity/Vol] 32 U/L [facility] Serum or plasma albumin/glob ulin mass ratioon 07-19-2020 Albumin/Globulin [Mass ratio] 1.2 {ratio} [facility] Serum or plasma alkaline rosanna sphatase measurement (enzymatic activity/volume)on 07-19-2020 ALP [Catalytic activity/Vol] 152 U/L [facility] Serum or plasma aspartate am inotransferase measurement (enzymatic activity/volume)on 07-19-2020 AST [Catalytic activity/Vol] 42 U/L [facility] Serum or plasma calcium jackie urement (mass/volume)on 07-19-2020 Calcium [Mass/Vol] 9.0 mg/dL 8.2-10.[address] [facility] Serum or plasma cardiac trop onin I measurement (mass/volume)on 07-19-2020 Troponin I.cardiac [Mass/Vol] ng/mL 0-0.02 [facility] Comment on above: [place] Cut off value > or equal to 0.03 ng/mL in conjunction with clinical conditions of myocardial infarction.([email or web address]) Serum or plasma chloride jose antonio surement (moles/volume)on 07-19-2020 Chloride [Moles/Vol] 104 mmol/L 95-114 [facility] Serum or plasma creatine kin ase MB (CKMB)/total creatine kinase (CK) ratio by calculaon 07-19-2020 CK.MB Calc [Catalytic fraction] 3.3 0.00-2.50 [facility] Serum or plasma creatine kin ase MB measurement (mass/volume)on 07-19-2020 CK.MB [Mass/Vol] 2.7 ng/mL 0.6-6.3 [facility] Serum or plasma creatinine m easurement with calculation of estimated glomerular filtron 07-19-2020 Creatinine [Mass/Vol] 0.94 mg/dL 0.44-1.03 [facility] Serum or plasma glucose jackie urement (mass/volume)on 07-19-2020 Glucose [Mass/Vol] 98 mg/dL 70-[address] [facility] Comment on above: ADA recommended refe rence rangeRandom Glucose Reference Range is dependent on time and content of last meal. Glucose of more than 200 mg/dL in a nonstressed, ambulatory subject supports the diagnosis of Diabetes Mellitus. Serum or plasma potassium me asurement (moles/volume)on 07-19-2020 Potassium [Moles/Vol] 4.7 mmol/L 3.5-5.1 [facility] Serum or plasma sodium measu rement (moles/volume)on 07-19-2020 Sodium [Moles/Vol] 139 mmol/L 136-[address] [facility] Serum or plasma total biliru bin measurement (mass/volume)on 07-19-2020 Bilirubin [Mass/Vol] 0.5 mg/dL 0.3-1.2 [facility] Serum or plasma total carbon dioxide measurement (moles/volume)on 07-19-2020 CO2 [Moles/Vol] 21.9 mmol/L 22.0-30.0 [facility] Serum or plasma urea nitroge n measurement (mass/volume)on 07-19-2020 Urea nitrogen [Mass/Vol] 17 mg/dL 9 [facility] Specific gravity of Urine by Automated test stripon 07-19-2020 Specific gravity (U) [Rel density] 1.015 1.001-1.03 0 [facility] Squamous epithelial cells de tection in urine sediment by light microscopyon 07-19-2020 Epithelial cells.squamous LM Ql (Urine sed) 0-1 [HPF] [facility] Urinalysison 07-19-2020 Hyaline casts LM Ql (Urine sed) 0-8 [LPF] [facility] Urine bacteria detection by automated methodon 07-19-2020 Bacteria Auto Ql (U) None seen None Seen [facility] Urine clarity by refractomet ry automatedon 07-19-2020 Clarity Refractometry automated (U) Clear Clear [facility] Urine culture routineon 07-01 Bacteria identified Cx Nom (U) 2 Days [facility] Urine glucose measurement by automated test strip (mass/volume)on 07-19-2020 Glucose Auto test strip (U) [Mass/Vol] Normal mg/dL Normal [facility] Urine hemoglobin detection b y automated test stripon 07-19-2020 Hemoglobin Auto test strip Ql (U) 1+ Negative [facility] Urine ketones measurement by automated test strip (mass/volume)on 07-19-2020 Ketones (U) [Mass/Vol] Negative Negative [facility] Urine leukocyte esterase det ection by automated test stripon 07-19-2020 Leukocyte esterase Auto test strip Ql (U) 4+ Negative [facility] Urine nitrite detection by t est stripon 07-19-2020 Nitrite Ql (U) Negative Negative [facility] Urine pH measurement by auto mated test stripon 07-19-2020 pH (U) 6.0 [pH] 5.0-9.0 [facility] Urine protein measurement by automated test strip (mass/volume)on 07-19-2020 Protein (U) [Mass/Vol] Negative Negative Fi [facility] Urine total bilirubin detect ion by test stripon 07-19-2020 Bilirubin Ql (U) Negative Negative [facility] Urine urobilinogen measureme nt by automated test strip (mass/volume)on 07-19-2020 Urobilinogen (U) [Mass/Vol] Normal mg/dL Normal [facility] Activated partial thrombopla stin time (aPTT) in platelet poor plasma by coagulation aon 06-15-2020 aPTT Coag (PPP) [Time] 30.9 s 23.0-35.0 [facility] Automated basophil %on 06-15 Basophils/100 WBC (Bld) 1.0 % [facility] Automated basophil counton 1 Basophils (Bld) [#/Vol] 0.1 10*3/uL 0.0-0.2 [facility] Automated blood lymphocyte c ount (number/volume)on 06-15-2020 Lymphocytes (Bld) [#/Vol] 1.1 10*3/uL 1.00-4.8 [facility] Automated blood lymphocyte c ount as percentage of total leukocyteson 06-15-2020 Lymphocytes/100 WBC (Bld) 8.1 % [facility] Automated blood monocyte cou nton 06-15-2020 Monocytes (Bld) [#/Vol] 1.7 10*3/uL 0.0-0.8 [facility] Automated blood platelet cou nt (count/volume)on 06-15-2020 Platelets (Bld) [#/Vol] 170 10*3/uL 150-450 [facility] Automated blood platelet jose antonio n volume measurementon 06-15-2020 Platelet mean volume (Bld) [Entitic vol] 9.5 fL 6.3-10.7 [facility] Automated eosinophil %on Eosinophils/100 WBC (Bld) 0.1 % [facility] Automated eosinophil counton 06-15-2020 Eosinophils (Bld) [#/Vol] 0.0 10*3/uL 0.0-0.45 [facility] Automated erythrocyte distri bution width ratioon 06-15-2020 Erythrocyte distribution width (RBC) [Ratio] 26.0 % 11.9-15.3 [facility] Automated erythrocyte mean c orpuscular hemoglobin (mass per erythrocyte)on 06-15-2020 MCH (RBC) [Entitic mass] 23.8 pg 24.7-34.3 [facility] Automated erythrocyte mean c orpuscular hemoglobin concentration measurement (mass/volon 06-15-2020 MCHC (RBC) [Mass/Vol] 30.8 g/dL 32.0-35.0 [facility] Automated erythrocyte mean c orpuscular volumeon 06-15-2020 MCV (RBC) [Entitic vol] 77.4 fL 80-100 [facility] Automated monocyte %on 06-15 Monocytes/100 WBC (Bld) 12.7 % [facility] Automated neutrophil %on Neutrophils/100 WBC (Bld) 78.1 % [facility] Blood anisocytosis detection on 06-15-2020 Anisocytosis Ql (Bld) Moderate [facility] Blood erythrocytes automated count (number/volume)on 06-15-2020 RBC (Bld) [#/Vol] 4.75 10*6/uL 3.60-5.00 [facility] Blood hemoglobin measurement (mass/volume)on 06-15-2020 Hemoglobin (Bld) [Mass/Vol] 11.3 g/dL 11.8-15.4 [facility] Blood leukocytes automated c ount (number/volume)on 06-15-2020 WBC (Bld) [#/Vol] 13.3 10*3/uL 4.5-11.0 [facility] Blood neutrophil count by au tomated method (number/volume)on 06-15-2020 Neutrophils (Bld) [#/Vol] 10.4 10*3/uL 1.8-7.7 [facility] Body fluid albumin measureme nt (mass/volume)on 06-15-2020 Albumin (Body fld) [Mass/Vol] 3.0 g/dL 3.2-5.5 [facility] COVID-19 Detected/Not Detect edon 06-15-2020 COVID-19 Detected/Not Detected Not detected Not Detecte [facility] Comment on above: This is a duplicate test result based off of the RP2.1 COVID (EUA) test performed within the Microbiology department. [facility]acon 06-15-2020 Natriuretic peptide B (Bld) [Mass/Vol] 2832.0 pg/mL 5-100 [facility] Creatine kinase [Enzymatic a ctivity/volume] in Serum or Plasmaon 06-15-2020 CK [Catalytic activity/Vol] 125 U/L 22-269 [facility] Estimated glomerular filtrat ion rate (GFR) non- Americanon 06-15-2020 GFR/1.73 sq M predicted among non-blacks MDRD (S/P/Bld) [Vol rate/Area] 53 mL/min/{1.73_m2} [facility] Hematocrit [Volume Fraction] of Blood by Automated counton 06-15-2020 Hematocrit (Bld) [Volume fraction] 36.8 % 34.0-46.4 [facility] Hematologyon 06-15-2020 Platelets (Bld) [#/Vol] Normal Normal [facility] PT Coag (PPP) [Time] 51.7 s 9.0-12.9 [facility] Otheron 06-15-2020 Respiratory Panel (PCR) [facility] Crenated Cell Slight [facility] GFR/1.73 sq M.predicted MDRD (S/P/Bld) [Vol rate/Area] mL/min/{1.73_m2} [facility] Comment on above: GFR estimated refere nce range: According to KDOQI guidelines, <60 ml/min/1.73m2 is sufficient to diagnose a patient with chronic kidney disease. Microcytosis Moderate [facility] Nucleated RBC/100 WBC (Bld) [Ratio] 0.0 % 0-0.5 [facility] Creatinine Clearance (Chem 60.88 [facility] Platelet Morphology Comment Normal Normal [facility] Poikilocytosis Slight [facility] Schistocytes Slight [facility] Ovalocyte detectionon 2019 Ovalocytes LM Ql (Bld) Slight [facility] Platelet poor plasma interna tional normalized ratio (INR) by coagulation assay (relaton 06-15-2020 INR Coag (PPP) [Relative time] 4.6 {INR} [facility] Comment on above: INR Therapeutic [...] Plasmaon 06-15-2020 Protein [Mass/Vol] 5.9 g/dL 6.1-7.[address] [facility] RBC morphologyon 06-15-2020 RBC morphology finding Nom (Bld) N/A [facility] Serum globulin measurement b y calculation (mass/volume)on 06-15-2020 Globulin (S) [Mass/Vol] 2.9 g/dL [facility] Serum or plasma alanine hernandez otransferase measurement without P-5'-P (enzymatic activion 06-15-2020 ALT No additional P-5'-P [Catalytic activity/Vol] 14 U/L 1060 [facility] Serum or plasma albumin/glob ulin mass ratioon 06-15-2020 Albumin/Globulin [Mass ratio] 1.0 {ratio} [facility] Serum or plasma alkaline rosanna sphatase measurement (enzymatic activity/volume)on 06-15-2020 ALP [Catalytic activity/Vol] 150 U/L 3292 [facility] Serum or plasma aspartate am inotransferase measurement (enzymatic activity/volume)on 06-15-2020 AST [Catalytic activity/Vol] 28 U/L 1042 [facility] Serum or plasma calcium jackie urement (mass/volume)on 06-15-2020 Calcium [Mass/Vol] 8.6 mg/dL 8.2-10.[address] [facility] Serum or plasma cardiac trop onin I measurement (mass/volume)on 06-15-2020 Troponin I.cardiac [Mass/Vol] 0.03 ng/mL 0-0.02 [facility] Comment on above: [place] Cut off value > or equal to 0.03 ng/mL in conjunction with clinical conditions of myocardial infarction.([email or web address]) Serum or plasma chloride jose antonio surement (moles/volume)on 06-15-2020 Chloride [Moles/Vol] 109 mmol/L 95-114 [facility] Serum or plasma creatine kin ase MB (CKMB)/total creatine kinase (CK) ratio by calculaon 06-15-2020 CK.MB Calc [Catalytic fraction] 1.5 0.00-2.50 [facility] Serum or plasma creatine kin ase MB measurement (mass/volume)on 06-15-2020 CK.MB [Mass/Vol] 1.9 ng/mL 0.6-6.3 [facility] Serum or plasma creatinine m easurement with calculation of estimated glomerular filtron 06-15-2020 Creatinine [Mass/Vol] 1.09 mg/dL 0.44-1.03 [facility] Serum or plasma glucose jackie urement (mass/volume)on 06-15-2020 Glucose [Mass/Vol] 139 mg/dL 70-[address] [facility] Comment on above: ADA recommended refe rence rangeRandom Glucose Reference Range is dependent on time and content of last meal. Glucose of more than 200 mg/dL in a nonstressed, ambulatory subject supports the diagnosis of Diabetes Mellitus. Serum or plasma potassium me asurement (moles/volume)on 06-15-2020 Potassium [Moles/Vol] 4.6 mmol/L 3.5-5.1 [facility] Serum or plasma sodium measu rement (moles/volume)on 06-15-2020 Sodium [Moles/Vol] 142 mmol/L 136-[address] [facility] Serum or plasma total biliru bin measurement (mass/volume)on 06-15-2020 Bilirubin [Mass/Vol] 0.7 mg/dL 0.3-1.2 [facility] Serum or plasma total carbon dioxide measurement (moles/volume)on 06-15-2020 CO2 [Moles/Vol] 23.7 mmol/L 22.0-30.0 [facility] Serum or plasma urea nitroge n measurement (mass/volume)on 06-15-2020 Urea nitrogen [Mass/Vol] 6 mg/dL 9- [facility] Estimated glomerular filtrat ion rate (GFR) non- Americanon 06-07-2020 GFR/1.73 sq M predicted among non-blacks MDRD (S/P/Bld) [Vol rate/Area] mL/min/{1.73_m2} [facility] Otheron 06-07-2020 GFR/1.73 sq M.predicted MDRD (S/P/Bld) [Vol rate/Area] mL/min/{1.73_m2} [facility] Comment on above: GFR estimated refere nce range: According to KDOQI guidelines, <60 ml/min/1.73m2 is sufficient to diagnose a patient with chronic kidney disease. Pharmacy Creatinine Clearance (Chem 75.20 [facility] Serum or plasma calcium jackie urement (mass/volume)on 06-07-2020 Calcium [Mass/Vol] 8.2 mg/dL 8.2-10.[address] [facility] Serum or plasma chloride jose antonio surement (moles/volume)on 06-07-2020 Chloride [Moles/Vol] 110 mmol/L 95-114 [facility] Serum or plasma creatinine m easurement with calculation of estimated glomerular filtron 06-07-2020 Creatinine [Mass/Vol] 0.90 mg/dL 0.44-1.03 [facility] Serum or plasma glucose jackie urement (mass/volume)on 06-07-2020 Glucose [Mass/Vol] 83 mg/dL 70-[address] [facility] Comment on above: ADA recommended refe rence rangeRandom Glucose Reference Range is dependent on time and content of last meal. Glucose of more than 200 mg/dL in a nonstressed, ambulatory subject supports the diagnosis of Diabetes Mellitus. Serum or plasma potassium me asurement (moles/volume)on 06-07-2020 Potassium [Moles/Vol] 4.4 mmol/L 3.5-5.1 [facility] Serum or plasma sodium measu rement (moles/volume)on 06-07-2020 Sodium [Moles/Vol] 138 mmol/L 136-[address] [facility] Serum or plasma total carbon dioxide measurement (moles/volume)on 06-07-2020 CO2 [Moles/Vol] 19.1 mmol/L 22.0-30.0 [facility] Serum or plasma urea nitroge n measurement (mass/volume)on 06-07-2020 Urea nitrogen [Mass/Vol] 5 mg/dL 9-23 [facility] Automated basophil %on 06-06 Basophils/100 WBC (Bld) 0.9 % [facility] Automated basophil counton 1 Basophils (Bld) [#/Vol] 0.1 10*3/uL 0.0-0.2 [facility] Automated blood lymphocyte c ount (number/volume)on 06-06-2020 Lymphocytes (Bld) [#/Vol] 1.8 10*3/uL 1.00-4.8 [facility] Automated blood lymphocyte c ount as percentage of total leukocyteson 06-06-2020 Lymphocytes/100 WBC (Bld) 25.4 % [facility] Automated blood monocyte cou nton 06-06-2020 Monocytes (Bld) [#/Vol] 0.8 10*3/uL 0.0-0.8 [facility] Automated blood platelet cou nt (count/volume)on 06-06-2020 Platelets (Bld) [#/Vol] 130 10*3/uL 150-450 [facility] Automated blood platelet jose antonio n volume measurementon 06-06-2020 Platelet mean volume (Bld) [Entitic vol] 9.7 fL 6.3-10.7 [facility] Automated eosinophil %on Eosinophils/100 WBC (Bld) 4.1 % [facility] Automated eosinophil counton 06-06-2020 Eosinophils (Bld) [#/Vol] 0.3 10*3/uL 0.0-0.45 [facility] Automated erythrocyte distri bution width ratioon 06-06-2020 Erythrocyte distribution width (RBC) [Ratio] 28.2 % 11.9-15.3 [facility] Automated erythrocyte mean c orpuscular hemoglobin (mass per erythrocyte)on 06-06-2020 MCH (RBC) [Entitic mass] 24.3 pg 24.7-34.3 [facility] Automated erythrocyte mean c orpuscular hemoglobin concentration measurement (mass/volon 06-06-2020 MCHC (RBC) [Mass/Vol] 29.8 g/dL 32.0-35.0 [facility] Automated erythrocyte mean c orpuscular volumeon 06-06-2020 MCV (RBC) [Entitic vol] 81.5 fL 80-100 [facility] Automated monocyte %on 06-06 Monocytes/100 WBC (Bld) 10.6 % [facility] Automated neutrophil %on Neutrophils/100 WBC (Bld) 59.0 % [facility] Blood anisocytosis detection on 06-06-2020 Anisocytosis Ql (Bld) [facility]ed [facility] Blood erythrocytes automated count (number/volume)on 06-06-2020 RBC (Bld) [#/Vol] 4.81 10*6/uL 3.60-5.00 [facility] Blood hemoglobin measurement (mass/volume)on 06-06-2020 Hemoglobin (Bld) [Mass/Vol] 11.7 g/dL 11.8-15.4 [facility] Blood leukocytes automated c ount (number/volume)on 06-06-2020 WBC (Bld) [#/Vol] 7.1 10*3/uL 3.8-11.[address] [facility] Blood neutrophil count by au tomated method (number/volume)on 06-06-2020 Neutrophils (Bld) [#/Vol] 4.2 10*3/uL 1.8-7.7 [facility] Blood polychromasia detectio n by light microscopyon 06-06-2020 Polychromasia LM Ql (Bld) Slight [facility] Creatine kinase [Enzymatic a ctivity/volume] in Serum or Plasmaon 06-06-2020 CK [Catalytic activity/Vol] 141 U/L 22-269 [facility] Ferritin [Mass/volume] in Se rum or Plasmaon 06-06-2020 Ferritin [Mass/Vol] 27.5 ng/mL 11-306.8 [facility] Hematocrit [Volume Fraction] of Blood by Automated counton 06-06-2020 Hematocrit (Bld) [Volume fraction] 39.2 % 34.0-46.4 [facility] Hematologyon 06-06-2020 Platelets (Bld) [#/Vol] Decreased Normal [facility] Hypochromia detectionon Hypochromia Ql (Bld) Moderate [facility] Otheron 06-06-2020 Absolute Reticulocyte Count 0.131 10*6/uL 0.024-0.08 4 [facility] Microcytosis Slight [facility] Nucleated RBC/100 WBC (Bld) [Ratio] 0.1 % 0-0.5 [facility] Percent Reticulocyte Count 2.7 % 0.5-1.5 [facility] Platelet Morphology Comment Normal Normal [facility] Poikilocytosis Slight [facility] Schistocytes Rare [facility] Ovalocyte detectionon 2019 Ovalocytes LM Ql (Bld) Slight Fi [facility] RBC morphologyon 06-06-2020 RBC morphology finding Nom (Bld) N/A [facility] Serum or plasma cardiac trop onin I measurement (mass/volume)on 06-06-2020 Troponin I.cardiac [Mass/Vol] 0.08 ng/mL 0-0.02 [facility] Comment on above: [place] Cut off value > or equal to 0.03 ng/mL in conjunction with clinical conditions of myocardial infarction.([email or web address]) Serum or plasma creatine kin ase MB (CKMB)/total creatine kinase (CK) ratio by calculaon 06-06-2020 CK.MB Calc [Catalytic fraction] 4.1 0.00-2.50 [facility] Serum or plasma creatine kin ase MB measurement (mass/volume)on 06-06-2020 CK.MB [Mass/Vol] 5.8 ng/mL 0.6-6.3 [facility] Target cellson 06-06-2020 Target cells LM Ql (Bld) Slight [facility] Teardrop cell detectionon Dacrocytes LM Ql (Bld) Rare [facility] COVID-19 Positive/Negativeon 06-05-2020 COVID-19 Positive/Negative Negative Negative [facility] Comment on above: Testing for SARS-CoV -2 by RT-PCRThis test was developed and its performance characteristics determined by [employer] ([place]) and validated at the [facility]. This test has not been FDA [...] 06-05-2020 Coronavirus 2019 PCR Interp N/A [facility] Urine lactic acid measuremen ton 06-05-2020 Lactate (U) [Moles/Vol] 1.1 mmol/L [facility] Activated partial thrombopla stin time (aPTT) in platelet poor plasma by coagulation aon 06-04-2020 aPTT Coag (PPP) [Time] 28.9 s 23.0-35.0 [facility] Cardiacon 06-04-2020 Natriuretic peptide B (Bld) [Mass/Vol] 1836.0 pg/mL 5-100 [facility] Hematologyon 06-04-2020 PT Coag (PPP) [Time] 15.7 s 9.0-12.9 [facility] Metabolic Panelon 06-04-2020 Magnesium [Mass/Vol] 1.7 mg/dL 1.6-2.6 [facility] Otheron 06-04-2020 Crenated Cell Moderate [facility] Platelet poor plasma interna tional normalized ratio (INR) by coagulation assay (relaton 06-04-2020 INR Coag (PPP) [Relative time] 1.4 {INR} [facility] Comment on above: INR Therapeutic [...] gap molar conc 14 mmol/L Normal 10-20 [facility] Comment on above: Performed By: #### [id number] #### [facility] [address] [place] [address] Calcium mass conc 8.8 mg/dL Normal 8.6-10.3 [facility] Comment on above: Performed By: #### [id number] #### [facility] [address] [place] [address] Chloride molar conc 101 mmol/L Normal 98-107 [facility] Comment on above: Performed By: #### [id number] #### [facility] [address] [place] [address] Creatinine mass conc 0.96 mg/dL Normal 0.50-1.05 [facility] Comment on above: Performed By: #### [id number] #### [facility] [address] [place] [address] GFR/1.73 sq M.predicted MDRD vol rate/area mL/min/{1.73_m2} Normal [facility] Comment on above: Result Comment: Inte rpretation for Chronic Kidney Disease: Stages 1&2 >60 Healthy or potential kidney damage. Mild decrease of GFR. Stage 3 30-59 Moderate decrease of GFR. Stage 4 15-29 Severe decrease of GFR. Stage 5 <15 Kidney failure or on dialysis. Performed By: #### [id number] #### [facility] [address] [place] [id number] Glucose mass conc 81 mg/dL Normal 70-100 [facility] Comment on above: Performed By: #### [id number] #### [facility] [address] [place] [address] HCO3 molar conc (Bld) 25 mmol/L Normal 21-32 [facility] Comment on above: Performed By: #### [id number] #### [facility] [address] [place] [id number] Potassium molar conc 4.4 mmol/L Normal 3.5-5.1 formerly [facility] Comment on above: Performed By: #### 1 [id number] #### [facility] [address] [place] [address] Sodium molar conc 136 mmol/L Normal 136-145 [facility] Comment on above: Performed By: #### 1 [id number] #### [facility] [address] [place] [address] Urea nitrogen mass conc 11 mg/dL Normal 6-23 [facility] Comment on above: Performed By: #### 1 [id number] #### [facility] [address] [place] [address] Urea nitrogen/Creatinine mass ratio 11 mg/mg Normal 5-25 [facility] Comment on above: Performed By: #### 1 [id number] #### [facility] [address] [place] [address] Prothrombin Timeon 9 INR Coag RelTime (PPP) 1.06 {INR} Normal 0.90-1.10 [facility] Comment on above: Performed By: #### 1 [id number] #### [facility] [address] [place] [address] Prothrombin time (PT) Coag time (PPP) 12.0 s Normal 9.7-12.7 [facility] Comment on above: Result Comment: PLEA NOTE NEW REFERENCE RANGE EFFECTIVE 2018 Performed By: #### 1 [id number] #### [facility] [address] [place] [address] Basic Metabolic Panelon - Anion gap molar conc 8 mmol/L Low 10-20 [facility] Comment on above: Performed By: #### 1 [id number] #### [facility] [address] [place] [address] Calcium mass conc 9.0 mg/dL Normal 8.6-10.3 [facility] Comment on above: Performed By: #### 1 [id number] #### [facility] [address] [place] [address] Chloride molar conc 100 mmol/L Normal 98-107 [facility] Comment on above: Performed By: #### 1 [id number] #### [facility] [address] [place] [address] Creatinine mass conc 1.05 mg/dL Normal 0.50-1.05 [facility] Comment on above: Performed By: #### 1 [id number] #### [facility] [address] [place] [address] GFR/1.73 sq M.predicted MDRD vol rate/area 56 mL/min/{1.73_m2} Normal [facility] Comment on above: Result Comment: Inte rpretation for Chronic Kidney Disease: Stages 1&2 >60 Healthy or potential kidney damage. Mild decrease of GFR. Stage 3 30-59 Moderate decrease of GFR. Stage 4 15-29 Severe decrease of GFR. Stage 5 <15 Kidney failure or on dialysis. Performed By: #### 1 [id number] #### [facility] [address] [place] [address] Glucose mass conc 78 mg/dL Normal 70-100 [facility] Comment on above: Performed By: #### 1 [id number] #### [facility] [address] [place] [address] HCO3 molar conc (Bld) 31 mmol/L Normal 21-32 [facility] Comment on above: Performed By: #### 1 [id number] #### [facility] [address] [place] [address] Potassium molar conc 4.8 mmol/L Normal 3.5-5.1 [facility] Comment on above: Performed By: #### 1 [id number] #### [facility] [address] [place] [address] Sodium molar conc 134 mmol/L Low 136-145 [facility] Comment on above: Performed By: #### 1 [id number] #### [facility] [address] [place] [address] Urea nitrogen mass conc 16 mg/dL Normal 6-23 [facility] Comment on above: Performed By: #### 1 [id number] #### [facility] [address] [place] [address] Urea nitrogen/Creatinine mass ratio 15 mg/mg Normal 5-25 [facility] Comment on above: Performed By: #### 1 [id number] #### [facility] [address] [place] [address] Prothrombin Timeon 9 INR Coag RelTime (PPP) 1.87 {INR} High 0.90-1.10 [facility] Healthcare Comment on above: Performed By: #### 1 [id number] #### [facility] [address] [place] [address] Prothrombin time (PT) Coag time (PPP) 21.4 s High 9.7-12.7 [facility] Comment on above: Result Comment: MEGAN RUBIN NOTE NEW REFERENCE RANGE EFFECTIVE 2018 Performed By: #### 1 [id number] #### [facility] [address] [place] [address] Activated Clotting Time Low Rangeon 08-04-2018 Activated Clotting Time Low Range 192 sec Normal [facility] Comment on above: Result Comment: Norm al: 96-167 Secs(Unheparinized) Stent Implant Range: >300 Secs Sheath Removal: 150-170 Secs CRRT: 180-220 Secs (Continous Renal Replacement Therapy) Performed By: #### 1 [id number] #### [facility] [address] [place] [address] Activated Clotting Time Low Range 180 sec Normal formerly [facility] Comment on above: Result Comment: Norm al: 96-167 Secs(Unheparinized) Stent Implant Range: >300 Secs Sheath Removal: 150-170 Secs CRRT: 180-220 Secs (Continous Renal Replacement Therapy) Performed By: #### 1 [id number] #### [facility] [address] [place] [address] Activated Clotting Time Low Range 121 sec Normal [facility] Comment on above: Result Comment: Norm al: 96-167 Secs(Unheparinized) Stent Implant Range: >300 Secs Sheath Removal: 150-170 Secs CRRT: 180-220 Secs (Continous Renal Replacement Therapy) Performed By: #### 1 [id number] #### [facility] [address] [place], [place] [id number] CBCon 08-04-2018 Erythrocyte distribution width Ratio (RBC) 15.8 % High 12.0-15.4 [facility] Comment on above: Performed By: #### 1 [id number] #### [facility] [address] [place] [address] Hematocrit Volume Fraction (Bld) 41.8 % Normal 36.5-46.6 [facility] Comment on above: Performed By: #### 1 [id number] #### [facility] [address] [place] [address] Hemoglobin mass conc (Bld) 13.0 g/dL Normal 11.8-15.3 [facility] Comment on above: Performed By: #### 1 [id number] #### [facility] [address] [place] [address] MCH Entitic mass (RBC) 25.8 pg Low 27.5-33.0 [facility] Comment on above: Performed By: #### 1 [id number] #### [facility] [address] [place] [address] MCHC mass conc (RBC) 31.1 g/dL Normal 30.1-35.0 [facility] Comment on above: Performed By: #### 1 [id number] #### [facility] [address] [place] [address] MCV Entitic volume (RBC) 83.1 fL Low 85.4-100.0 [facility] Comment on above: Performed By: #### 1 [id number] #### [facility] [address] [place] [address] NRBC Absolute 0.00 10*3/uL Normal [facility] Healthcare Comment on above: Performed By: #### 1 [id number] #### [facility] [address] [place] [address] NRBC Automated 0.0 /100{WBCs} Normal [facility] Comment on above: Performed By: #### 1 [id number] #### [facility] [address] [place] [address] Platelet mean volume Entitic volume (Bld) 11.5 fL Normal 9.9-12.1 [facility] Comment on above: Performed By: #### 1 [id number] #### [facility] [address] [place] [address] Platelets #/vol (Bld) 233 10*3/uL Normal 155-404 [facility] Comment on above: Performed By: #### 1 [id number] #### [facility] [address] [place] [address] RBC #/vol (Bld) 5.03 10*6/uL Normal 3.85-5.10 [facility] Comment on above: Performed By: #### 1 [id number] #### [facility] [address] [place] [address] RDW SD 46.8 fL Normal 39.3-48.6 [facility] Comment on above: Performed By: #### 1 [id number] #### [facility] [address] [place] [address] WBC #/vol (Bld) 11.2 10*3/uL High 4.4-9.9 [facility] Comment on above: Performed By: #### 1 [id number] #### [facility] [address] [place] [address] Prothrombin Timeon 8 INR Coag RelTime (PPP) 1.18 {INR} High 0.90-1.10 [facility] Comment on above: Performed By: #### 1 [id number] #### [facility] [address] [place] [address] Prothrombin time (PT) Coag time (PPP) 13.4 s High 9.7-12.7 [facility] Comment on above: Result Comment: Delt a check investigation completed per policy PLEASE NOTE NEW REFERENCE RANGE EFFECTIVE 2018 Performed By: #### 1 [id number] #### [facility] [address] [place] [address] Basic Metabolic Panelon 12-0 Anion gap molar conc 14 mmol/L Normal 10-20 [facility] Comment on above: Performed By: #### 1 [id number] #### [facility] [address] [place] [address] Calcium mass conc 9.5 mg/dL Normal 8.6-10.3 [facility] Comment on above: Performed By: #### 1 [id number] #### [facility] [address] [place] [address] Chloride molar conc 103 mmol/L Normal 98-107 [facility] Comment on above: Performed By: #### 1 [id number] #### [facility] [address] [place] [address] Creatinine mass conc 0.94 mg/dL Normal 0.50-1.05 [facility] Comment on above: Performed By: #### 1 [id number] #### [facility] [address] [place] [address] GFR/1.73 sq M.predicted MDRD vol rate/area mL/min/{1.73_m2} Normal [facility] Comment on above: Result Comment: Inte rpretation for Chronic Kidney Disease: Stages 1&2 >60 Healthy or potential kidney damage. Mild decrease of GFR. Stage 3 30-59 Moderate decrease of GFR. Stage 4 15-29 Severe decrease of GFR. Stage 5 <15 Kidney failure or on dialysis. Performed By: #### 1 [id number] #### [facility] [address] [place] [address] Glucose mass conc 81 mg/dL Normal 70-100 [facility] Comment on above: Performed By: #### 1 [id number] #### [facility] [address] [place] [address] HCO3 molar conc (Bld) 26 mmol/L Normal 21-32 [facility] Comment on above: Performed By: #### 1 [id number] #### [facility] [address] [place] [address] Potassium molar conc 3.8 mmol/L Normal 3.5-5.1 [facility] Comment on above: Performed By: #### 1 [id number] #### [facility] [address] [place] [address] Sodium molar conc 139 mmol/L Normal 136-145 [facility] Comment on above: Performed By: #### 1 [id number] #### [facility] [address] [place] [address] Urea nitrogen mass conc 10 mg/dL Normal 6-23 [facility] Comment on above: Performed By: #### 1 [id number] #### [facility] [address] [place] [address] Urea nitrogen/Creatinine mass ratio 11 mg/mg Normal 5-25 [facility] Comment on above: Performed By: #### 1 [id number] #### [facility] [address] [place] [address] CBCon 08-02-2018 Erythrocyte distribution width Ratio (RBC) 15.9 % High 12.0-15.4 [facility] Comment on above: Performed By: #### 1 [id number] #### [facility] [address] [place] [address] Hematocrit Volume Fraction (Bld) 47.6 % High 36.5-46.6 [facility] Comment on above: Performed By: #### 1 [id number] #### [facility] [address] [place] [address] Hemoglobin mass conc (Bld) 14.3 g/dL Normal 11.8-15.3 [facility] Comment on above: Performed By: #### 1 [id number] #### [facility] [address] [place] [address] MCH Entitic mass (RBC) 26.1 pg Low 27.5-33.0 [facility] Comment on above: Performed By: #### 1 [id number] #### [facility] [address] [place] [address] MCHC mass conc (RBC) 30.0 g/dL Low 30.1-35.0 [facility] Comment on above: Performed By: #### 1 [id number] #### [facility] [address] [place] [address] MCV Entitic volume (RBC) 86.9 fL Normal 85.4-100.0 [facility] Comment on above: Performed By: #### 1 [id number] #### [facility] [address] [place] [address] NRBC Absolute 0.00 10*3/uL Normal [facility] Comment on above: Performed By: #### 1 [id number] #### [facility] [address] [place] [address] NRBC Automated 0.0 /100{WBCs} Normal [facility] Comment on above: Performed By: #### 1 [id number] #### [facility] [address] [place] [address] Platelet mean volume Entitic volume (Bld) 13.7 fL High 9.9-12.1 [facility] Comment on above: Performed By: #### 1 [id number] #### [facility] [address] [place] [address] Platelets #/vol (Bld) 223 10*3/uL Normal 155-404 [facility] Healthcare Comment on above: Performed By: #### 1 [id number] #### [facility] [address] [place] [address] RBC #/vol (Bld) 5.48 10*6/uL High 3.85-5.10 [facility] Healthcare Comment on above: Performed By: #### 1 [id number] #### [facility] [address] [place] [address] RDW SD 50.1 fL High 39.3-48.6 [facility] Comment on above: Performed By: #### 1 [id number] #### [facility] [address] [place] [address] WBC #/vol (Bld) 12.6 10*3/uL High 4.4-9.9 [facility] Comment on above: Performed By: #### 1 [id number] #### [facility] [address] [place] [address] Prothrombin Timeon 8 INR Coag RelTime (PPP) 3.04 {INR} High 0.90-1.10 [facility] Healthcare Comment on above: Performed By: #### 1 [id number] #### [facility] [address] [place] [address] Prothrombin time (PT) Coag time (PPP) 35.1 s High 9.7-12.7 [facility] Comment on above: Result Comment: MEGAN RUBIN NOTE NEW REFERENCE RANGE EFFECTIVE 2018 Performed By: #### 1 [id number] #### [facility] [address] [place] [address] Basic Metabolic Panelon 11-0 2-2018 Anion gap molar conc 11 mmol/L Normal 10-20 [facility] Comment on above: Performed By: #### 1 [id number] #### [facility] [address] [place] [address] Calcium mass conc 9.0 mg/dL Normal 8.6-10.3 [facility] Comment on above: Performed By: #### 1 [id number] #### [facility] [address] [place] [address] Chloride molar conc 99 mmol/L Normal 98-107 [facility] Comment on above: Performed By: #### 1 [id number] #### [facility] [address] [place] [address] Creatinine mass conc 1.00 mg/dL Normal 0.50-1.05 [facility] Comment on above: Performed By: #### 1 [id number] #### [facility] [address] [place] [address] GFR/1.73 sq M.predicted MDRD vol rate/area 59 mL/min/{1.73_m2} Normal [facility] Comment on above: Result Comment: Inte rpretation for Chronic Kidney Disease: Stages 1&2 >60 Healthy or potential kidney damage. Mild decrease of GFR. Stage 3 30-59 Moderate decrease of GFR. Stage 4 15-29 Severe decrease of GFR. Stage 5 <15 Kidney failure or on dialysis. Performed By: #### 1 [id number] #### [facility] [address] [place] [address] Glucose mass conc 81 mg/dL Normal 70-100 [facility] Comment on above: Performed By: #### 1 [id number] #### [facility] [address] [place] [address] HCO3 molar conc (Bld) 27 mmol/L Normal 21-32 [facility] Comment on above: Performed By: #### 1 [id number] #### [facility] [address] [place] [address] Potassium molar conc 4.1 mmol/L Normal 3.5-5.1 [facility] Comment on above: Performed By: #### 1 [id number] #### [facility] [address] [place] [address] Sodium molar conc 133 mmol/L Low 136-145 [facility] Healthcare Comment on above: Performed By: #### 1 [id number] #### [facility] [address] [place] [address] Urea nitrogen mass conc 14 mg/dL Normal 6-23 [facility] Comment on above: Performed By: #### 1 [id number] #### [facility] [address] [place] [address] Urea nitrogen/Creatinine mass ratio 14 mg/mg Normal 5-25 [facility] Comment on above: Performed By: #### 1 [id number] #### [facility] [address] [place] [address] Magnesiumon 07-01-2018 Magnesium mass conc 1.9 mg/dL Normal 1.6-2.4 [facility] Healthcare Comment on above: Performed By: #### 1 [id number] #### [facility] [address] [place] [address] Prothrombin Timeon 8 INR Coag RelTime (PPP) 3.10 {INR} High 0.90-1.10 [facility] Comment on above: Performed By: #### 1 [id number] #### [facility] [address] [place] [address] Prothrombin time (PT) Coag time (PPP) 35.8 s High 9.7-12.7 [facility] Comment on above: Result Comment: PLEA NOTE NEW REFERENCE RANGE EFFECTIVE 2018 Performed By: #### 1 [id number] #### [facility] [address] [place] [address] Basic Metabolic Panelon Anion gap molar conc 12 mmol/L Normal 10-20 [facility] Comment on above: Performed By: #### 1 [id number] #### [facility] [address] [place] [address] Calcium mass conc 9.0 mg/dL Normal 8.6-10.3 [facility] Healthcare Comment on above: Performed By: #### 1 [id number] #### [facility] [address] [place] [address] Chloride molar conc 101 mmol/L Normal 98-107 [facility] Healthcare Comment on above: Performed By: #### 1 [id number] #### [facility] [address] [place] [address] Creatinine mass conc 1.04 mg/dL Normal 0.50-1.05 [facility] Healthcare Comment on above: Performed By: #### 1 [id number] #### [facility] [address] [place] [address] GFR/1.73 sq M.predicted MDRD vol rate/area 56 mL/min/{1.73_m2} Normal [facility] Comment on above: Result Comment: Inte rpretation for Chronic Kidney Disease: Stages 1&2 >60 Healthy or potential kidney damage. Mild decrease of GFR. Stage 3 30-59 Moderate decrease of GFR. Stage 4 15-29 Severe decrease of GFR. Stage 5 <15 Kidney failure or on dialysis. Performed By: #### 1 [id number] #### [facility] [address] [place] [address] Glucose mass conc 89 mg/dL Normal 70-100 [facility] Comment on above: Performed By: #### 1 [id number] #### [facility] [address] [place] [address] HCO3 molar conc (Bld) 25 mmol/L Normal 21-32 [facility] Healthcare Comment on above: Performed By: #### 1 [id number] #### [facility] [address] [place] [address] Potassium molar conc 4.3 mmol/L Normal 3.5-5.1 [facility] Healthcare Comment on above: Performed By: #### 1 [id number] #### [facility] [address] [place] [address] Sodium molar conc 134 mmol/L Low 136-145 [facility] Healthcare Comment on above: Performed By: #### 1 [id number] #### [facility] [address] [place] [address] Urea nitrogen mass conc 12 mg/dL Normal 6-23 [facility] Comment on above: Performed By: #### 1 [id number] #### [facility] [address] [place] [address] Urea nitrogen/Creatinine mass ratio 12 mg/mg Normal 5-25 [facility] Comment on above: Performed By: #### 1 [id number] #### [facility] [address] [place] [address] Magnesiumon 06-30-2018 Magnesium mass conc 2.0 mg/dL Normal 1.6-2.4 [facility] Comment on above: Performed By: #### 1 [id number] #### [facility] [address] [place] [address] Prothrombin Timeon 8 INR Coag RelTime (PPP) 2.93 {INR} High 0.90-1.10 [facility] Comment on above: Performed By: #### 2 [id number] #### [facility] [address] [place] [address] Prothrombin time (PT) Coag time (PPP) 33.9 s High 9.7-12.7 [facility] Comment on above: Result Comment: PLEA NOTE NEW REFERENCE RANGE EFFECTIVE 2018 Performed By: #### 2 [id number] #### [facility] [address] [place] [address] Basic Metabolic Panelon 06-01 Anion gap molar conc 8 mmol/L Low 10-20 [facility] Healthcare Comment on above: Performed By: #### 2 [id number] #### [facility] [address] [place] [address] Calcium mass conc 8.7 mg/dL Normal 8.6-10.3 [facility] Healthcare Comment on above: Performed By: #### 2 [id number] #### [facility] [address] [place] [address] Chloride molar conc 103 mmol/L Normal 98-107 [facility] Healthcare Comment on above: Performed By: #### 2 [id number] #### [facility] [address] [place] [address] Creatinine mass conc 0.89 mg/dL Normal 0.50-1.05 [facility] Healthcare Comment on above: Performed By: #### 2 [id number] #### [facility] [address] [place] [address] GFR/1.73 sq M.predicted MDRD vol rate/area mL/min/{1.73_m2} Normal [facility] Healthcare Comment on above: Result Comment: Inte rpretation for Chronic Kidney Disease: Stages 1&2 >60 Healthy or potential kidney damage. Mild decrease of GFR. Stage 3 30-59 Moderate decrease of GFR. Stage 4 15-29 Severe decrease of GFR. Stage 5 <15 Kidney failure or on dialysis. Performed By: #### 2 [id number] #### [facility] [address] [place] [address] Glucose mass conc 125 mg/dL High 70-100 [facility] Healthcare Comment on above: Performed By: #### 2 [id number] #### [facility] [address] [place] [address] HCO3 molar conc (Bld) 26 mmol/L Normal 21-32 [facility] Healthcare Comment on above: Performed By: #### 2 [id number] #### [facility] [address] [place] [address] Potassium molar conc 4.0 mmol/L Normal 3.5-5.1 [facility] Healthcare Comment on above: Performed By: #### 2 [id number] #### [facility] [address] [place] [address] Sodium molar conc 133 mmol/L Low 136-145 [facility] Healthcare Comment on above: Performed By: #### 2 [id number] #### [facility] [address] [place] [address] Urea nitrogen mass conc 10 mg/dL Normal 6-23 [facility] Healthcare Comment on above: Performed By: #### 2 [id number] #### [facility] [address] [place] [address] Urea nitrogen/Creatinine mass ratio 11 mg/mg Normal 5-25 [facility] Healthcare Comment on above: Performed By: #### 2 [id number] #### [facility] [address] [place] [address] Magnesiumon 06-29-2018 Magnesium mass conc 1.8 mg/dL Normal 1.6-2.4 [facility] Comment on above: Performed By: #### 2 [id number] #### [facility] [address] [place] [address] Prothrombin Timeon 8 INR Coag RelTime (PPP) 3.23 {INR} High 0.90-1.10 [facility] Healthcare Comment on above: Performed By: #### 2 [id number] #### [facility] [address] [place] [address] Prothrombin time (PT) Coag time (PPP) 37.4 s High 9.7-12.7 [facility] Comment on above: Result Comment: MEGAN RUBIN NOTE NEW REFERENCE RANGE EFFECTIVE 2018 Performed By: #### 2 [id number] #### [facility] [address] [place] [address] 34757 Basic Metabolic Panelon 06-01 Anion gap molar conc 11 mmol/L Normal 10-20 [facility] Comment on above: Performed By: #### 2 [id number] #### [facility] [address] [place] [address] 56933 Calcium mass conc 8.5 mg/dL Low 8.6-10.3 [facility] Comment on above: Performed By: #### 2 [id number] #### [facility] [address] [place] [address] 69127 Chloride molar conc 104 mmol/L Normal 98-107 [facility] Comment on above: Performed By: #### 2 [id number] #### [facility] [address] [place] [address] 70060 Creatinine mass conc 0.90 mg/dL Normal 0.50-1.05 [facility] Comment on above: Performed By: #### 2 [id number] #### [facility] [address] [place] [address] 45918 GFR/1.73 sq M.predicted MDRD vol rate/area mL/min/{1.73_m2} Normal formerly [facility] Comment on above: Result Comment: Inte rpretation for Chronic Kidney Disease: Stages 1&2 >60 Healthy or potential kidney damage. Mild decrease of GFR. Stage 3 30-59 Moderate decrease of GFR. Stage 4 15-29 Severe decrease of GFR. Stage 5 <15 Kidney failure or on dialysis. Performed By: #### 2 [id number] #### [facility] [address] [place] [address] Glucose mass conc 99 mg/dL Normal 70-100 [facility] Comment on above: Performed By: #### 2 [id number] #### [facility] [address] [place] [address] HCO3 molar conc (Bld) 23 mmol/L Normal 21-32 [facility] Comment on above: Performed By: #### 2 [id number] #### [facility] [address] [place] [address] Potassium molar conc 4.3 mmol/L Normal 3.5-5.1 [facility] Healthcare Comment on above: Performed By: #### 2 850295 #### [facility] [address] [place] [address] Sodium molar conc 134 mmol/L Low 136-145 [facility] Healthcare Comment on above: Performed By: #### 2 [id number] #### [facility] [address] [place] [address] Urea nitrogen mass conc 15 mg/dL Normal 6-23 [facility] Healthcare Comment on above: Performed By: #### 2 [id number] #### [facility] [address] [place] [address] Urea nitrogen/Creatinine mass ratio 17 mg/mg Normal 5-25 [facility] Healthcare Comment on above: Performed By: #### 2 400505 #### [facility] [address] [place] [address] Magnesiumon 06-28-2018 Magnesium mass conc 1.9 mg/dL Normal 1.6-2.4 [facility] Healthcare Comment on above: Performed By: #### 2 [id number] #### [facility] [address] [place] [address] Prothrombin Timeon 8 INR Coag RelTime (PPP) 4.27 {INR} High 0.90-1.10 [facility] Comment on above: Performed By: #### 2 [id number] #### [facility] [address] [place] [address] Prothrombin time (PT) Coag time (PPP) 49.7 s High 9.7-12.7 [facility] Healthcare Comment on above: Result Comment: MEGAN RUBIN NOTE NEW REFERENCE RANGE EFFECTIVE 2018 Performed By: #### 2 [id number] #### [facility] [address] [place] [address] 47807 Basic Metabolic Panelon 10-2 Anion gap molar conc 12 mmol/L Normal 10-20 [facility] Healthcare Comment on above: Performed By: #### 2 567510 #### [facility] [address] [place] [address] 18869 Calcium mass conc 8.4 mg/dL Low 8.6-10.3 [facility] Healthcare Comment on above: Performed By: #### 2 [id number] #### [facility] [address] [place] [address] Chloride molar conc 109 mmol/L High 98-107 [facility] Healthcare Comment on above: Performed By: #### 2 240500 #### [facility] [address] [place] [address] Creatinine mass conc 1.04 mg/dL Normal 0.50-1.05 [facility] Comment on above: Performed By: #### 2 545286 #### [facility] [address] [place] [address] 12321 GFR/1.73 sq M.predicted MDRD vol rate/area 56 mL/min/{1.73_m2} Normal [facility] Healthcare Comment on above: Result Comment: Inte rpretation for Chronic Kidney Disease: Stages 1&2 >60 Healthy or potential kidney damage. Mild decrease of GFR. Stage 3 30-59 Moderate decrease of GFR. Stage 4 15-29 Severe decrease of GFR. Stage 5 <15 Kidney failure or on dialysis. Performed By: #### 2 [id number] #### [facility] [address] [place] [address] 19319 Glucose mass conc 84 mg/dL Normal 70-100 [facility] Healthcare Comment on above: Performed By: #### 2 879836 #### [facility] [address] [place] [address] 36846 HCO3 molar conc (Bld) 21 mmol/L Normal 21-32 [facility] Healthcare Comment on above: Performed By: #### 2 [id number] #### [facility] [address] [place] [address] Potassium molar conc 4.5 mmol/L Normal 3.5-5.1 [facility] Healthcare Comment on above: Performed By: #### 2 [id number] #### [facility] [address] [place] [address] Sodium molar conc 138 mmol/L Normal 136-145 [facility] Healthcare Comment on above: Performed By: #### 2 860016 #### [facility] [address] [place] [address] Urea nitrogen mass conc 16 mg/dL Normal 6-23 [facility] Healthcare Comment on above: Performed By: #### 2 [id number] #### [facility] [address] [place] [address] Urea nitrogen/Creatinine mass ratio 15 mg/mg Normal 5-25 [facility] Healthcare Comment on above: Performed By: #### 2 674387 #### [facility] [address] [place] [address] Anion gap molar conc 10 mmol/L Normal 10-20 [facility] Healthcare Comment on above: Performed By: #### 2 [id number] #### [facility] [address] [place] [address] Calcium mass conc 8.6 mg/dL Normal 8.6-10.3 [facility] Healthcare Comment on above: Performed By: #### 2 681225 #### [facility] [address] [place] [address] Chloride molar conc 107 mmol/L Normal 98-107 [facility] Healthcare Comment on above: Performed By: #### 2 [id number] #### [facility] [address] [place] [address] Creatinine mass conc 1.05 mg/dL Normal 0.50-1.05 [facility] Healthcare Comment on above: Performed By: #### 2 551120 #### [facility] [address] [place] [address] GFR/1.73 sq M.predicted MDRD vol rate/area 56 mL/min/{1.73_m2} Normal [facility] Healthcare Comment on above: Result Comment: Inte rpretation for Chronic Kidney Disease: Stages 1&2 >60 Healthy or potential kidney damage. Mild decrease of GFR. Stage 3 30-59 Moderate decrease of GFR. Stage 4 15-29 Severe decrease of GFR. Stage 5 <15 Kidney failure or on dialysis. Performed By: #### 2 607303 #### [facility] [address] [place] [address] Glucose mass conc 95 mg/dL Normal 70-100 [facility] Comment on above: Performed By: #### 2 733579 #### [facility] [address] [place] [address] HCO3 molar conc (Bld) 26 mmol/L Normal 21-32 [facility] Comment on above: Performed By: #### 2 306036 #### [facility] [address] [place] [address] Potassium molar conc 4.3 mmol/L Normal 3.5-5.1 [facility] Comment on above: Performed By: #### 2 651132 #### [facility] [address] [place] [address] Sodium molar conc 139 mmol/L Normal 136-145 [facility] Comment on above: Performed By: #### 2 083727 #### [facility] [address] [place] [address] Urea nitrogen mass conc 17 mg/dL Normal 6-23 [facility] Comment on above: Performed By: #### 2 221762 #### [facility] [address] [place] [address] Urea nitrogen/Creatinine mass ratio 16 mg/mg Normal 5-25 [facility] Comment on above: Performed By: #### 2 641370 #### [facility] [address] [place] [address] CBC With Differentialon - Basophils #/vol (Bld) 0.11 10*3/uL High 0.01-0.07 [facility] Comment on above: Performed By: #### 2 169506 #### [facility] [address] [place] [address] Basophils/100 WBC (Bld) 1.2 % Normal 0.1-1.2 [facility] Comment on above: Performed By: #### 2 674721 #### [facility] [address] [place] [address] Eosinophils #/vol (Bld) 0.45 10*3/uL Normal 0.04-0.50 [facility] Comment on above: Performed By: #### 2 114406 #### [facility] [address] [place] [address] Eosinophils/100 WBC (Bld) 4.7 % Normal 0.0-8.1 [facility] Comment on above: Performed By: #### 2 244069 #### [facility] [address] [place] [address] Erythrocyte distribution width Ratio (RBC) 15.7 % High 12.0-15.4 [facility] Comment on above: Performed By: #### 2 845265 #### [facility] [address] [place] [address] Hematocrit Volume Fraction (Bld) 38.5 % Normal 36.5-46.6 [facility] Comment on above: Performed By: #### 2 228194 #### [facility] [address] [place] [address] Hemoglobin mass conc (Bld) 11.9 g/dL Normal 11.8-15.3 [facility] Comment on above: Performed By: #### 2 253437 #### [facility] [address] [place] [address] Imm Grans Absolute 0.09 10*3/uL Normal 0.00-0.21 [facility] Comment on above: Performed By: #### 2 924267 #### [facility] [address] [place] [address] Immature granulocytes #/vol (Bld) 0.9 % Normal [facility] Comment on above: Performed By: #### 2 [id number] #### [facility] [address] [place] [address] Lymphocytes #/vol (Bld) 3.15 10*3/uL High 0.40-2.84 [facility] Comment on above: Performed By: #### 2 [id number] #### [facility] [address] [place] [address] Lymphocytes/100 WBC (Bld) 33.2 % Normal 15.7-50.5 [facility] Comment on above: Performed By: #### 2 [id number] #### [facility] [address] [place] [address] MCH Entitic mass (RBC) 26.1 pg Low 27.5-33.0 [facility] Comment on above: Performed By: #### 2 608497 #### [facility] [address] [place] [address] MCHC mass conc (RBC) 30.9 g/dL Normal 30.1-35.0 [facility] Comment on above: Performed By: #### 2 850927 #### [facility] [address] [place] [address] MCV Entitic volume (RBC) 84.4 fL Low 85.4-100.0 [facility] Comment on above: Performed By: #### 2 142811 #### [facility] [address] [place] [address] Monocytes #/vol (Bld) 0.91 10*3/uL High 0.25-0.83 [facility] Comment on above: Performed By: #### 2 [id number] #### [facility] [address] [place] [address] Monocytes/100 WBC (Bld) 9.6 % Normal 4.8-12.7 [facility] Comment on above: Performed By: #### 2 374609 #### [facility] [address] [place] [address] Neutrophils Absolute 4.78 10*3/uL Normal 1.95-6.85 [facility] Comment on above: Performed By: #### 2 122696 #### [facility] [address] [place] [address] Neutrophils/100 WBC (Bld) 50.4 % Normal 36.8-73.2 [facility] Comment on above: Performed By: #### 2 [id number] #### [facility] [address] [place] [address] NRBC Absolute 0.00 10*3/uL Normal [facility] Healthcare Comment on above: Performed By: #### 2 [id number] #### [facility] [address] [place] [address] NRBC Automated 0.0 /100{WBCs} Normal [facility] Healthcare Comment on above: Performed By: #### 2 [id number] #### [facility] [address] [place] [address] Platelet mean volume Entitic volume (Bld) 11.1 fL Normal 9.9-12.1 [facility] Healthcare Comment on above: Performed By: #### 2 876364 #### [facility] [address] [place] [address] Platelets #/vol (Bld) 215 10*3/uL Normal 155-404 [facility] Healthcare Comment on above: Performed By: #### 2 [id number] #### [facility] [address] [place] [address] RBC #/vol (Bld) 4.56 10*6/uL Normal 3.85-5.10 [facility] Healthcare Comment on above: Performed By: #### 2 801286 #### [facility] [address] [place] [address] RDW SD 48.0 fL Normal 39.3-48.6 [facility] Healthcare Comment on above: Performed By: #### 2 566128 #### [facility] [address] [place] [address] WBC #/vol (Bld) 9.5 10*3/uL Normal 4.4-9.9 [facility] Healthcare Comment on above: Performed By: #### 2 206184 #### [facility] [address] [place] [address] Comprehensive Metabolic Pane siddharth 06-27-2018 Albumin mass conc 3.9 g/dL Normal 3.4-5.0 [facility] Healthcare Comment on above: Performed By: #### 1 [id number] #### [facility] [address] [place] [address] Albumin/Globulin mass ratio 1.3 {ratio} Normal 0.9-2.4 [facility] Healthcare Comment on above: Performed By: #### 1 666306 #### [facility] [address] [place] [address] ALP enzyme act/vol 150 U/L High 45-117 [facility] Comment on above: Performed By: #### 1 [id number] #### [facility] [address] [place] [address] ALT enzyme act/vol 11 U/L Normal 7-45 [facility] Comment on above: Performed By: #### 1 755594 #### [facility] [address] [place] [address] Anion gap molar conc 13 mmol/L Normal 10-20 [facility] Healthcare Comment on above: Performed By: #### 1 166996 #### [facility] [address] [place] [address] AST enzyme act/vol 21 U/L Normal 13-39 [facility] Healthcare Comment on above: Performed By: #### 1 [id number] #### [facility] [address] [place] [address] Bilirubin mass conc 0.3 mg/dL Normal 0.0-1.2 [facility] Healthcare Comment on above: Performed By: #### 1 546112 #### [facility] [address] [place] [address] Calcium mass conc 9.0 mg/dL Normal 8.6-10.3 [facility] Healthcare Comment on above: Performed By: #### 1 667934 #### [facility] [address] [place] [address] Chloride molar conc 103 mmol/L Normal 98-107 [facility] Healthcare Comment on above: Performed By: #### 1 561682 #### [facility] [address] [place] [address] Creatinine mass conc 1.09 mg/dL High 0.50-1.05 [facility] Healthcare Comment on above: Performed By: #### 1 053871 #### [facility] [address] [place] [address] GFR/1.73 sq M.predicted MDRD vol rate/area 53 mL/min/{1.73_m2} Normal [facility] Healthcare Comment on above: Result Comment: Inte rpretation for Chronic Kidney Disease: Stages 1&2 >60 Healthy or potential kidney damage. Mild decrease of GFR. Stage 3 30-59 Moderate decrease of GFR. Stage 4 15-29 Severe decrease of GFR. Stage 5 <15 Kidney failure or on dialysis. Performed By: #### 1 [id number] #### [facility] [address] [place] [address] Glucose mass conc 94 mg/dL Normal 70-100 [facility] Healthcare Comment on above: Performed By: #### 1 [id number] #### [facility] [address] [place] [address] HCO3 molar conc (Bld) 27 mmol/L Normal 21-32 [facility] Healthcare Comment on above: Performed By: #### 1 819652 #### [facility] [address] [place] [address] Potassium molar conc 4.3 mmol/L Normal 3.5-5.1 [facility] Healthcare Comment on above: Performed By: #### 1 [id number] #### [facility] [address] [place] [address] Protein mass conc 6.8 g/dL Normal 6.4-8.2 [facility] Healthcare Comment on above: Performed By: #### 1 592631 #### [facility] [address] [place] [address] Sodium molar conc 139 mmol/L Normal 136-145 [facility] Healthcare Comment on above: Performed By: #### 1 [id number] #### [facility] [address] [place] [address] Urea nitrogen mass conc 19 mg/dL Normal 6-23 [facility] Healthcare Comment on above: Performed By: #### 1 [id number] #### [facility] [address] [place] [address] Urea nitrogen/Creatinine mass ratio 17 mg/mg Normal 5-25 [facility] Healthcare Comment on above: Performed By: #### 1 [id number] #### [facility] [address] [place] [address] Magnesiumon 06-27-2018 Magnesium mass conc 2.0 mg/dL Normal 1.6-2.4 [facility] Healthcare Comment on above: Performed By: #### 2 762301 #### [facility] [address] [place] [address] Magnesium mass conc 1.9 mg/dL Normal 1.6-2.4 [facility] Healthcare Comment on above: Performed By: #### 1 [id number] #### [facility] [address] [place] [address] Partial Thromboplastin Timeo n 06-27-2018 aPTT Coag time (Bld) 29.7 s Normal 25.0-36.0 [facility] Healthcare Comment on above: Result Comment: . The APTT is no longer used for monitoring Unfractionated Heparin Therapy. For monitoring Heparin Therapy, use the Heparin Assay. Performed By: #### 3 [id number] #### [facility] [address] [place] [address] Prothrombin Timeon 8 INR Coag RelTime (PPP) 3.54 {INR} High 0.90-1.10 [facility] Healthcare Comment on above: Performed By: #### 3 [id number] #### [facility] [address] [place] [address] Prothrombin time (PT) Coag time (PPP) 41.0 s High 9.7-12.7 [facility] Healthcare Comment on above: Result Comment: MEGAN RUBIN NOTE NEW REFERENCE RANGE EFFECTIVE 2018 Performed By: #### 3 [id number] #### [facility] [address] [place] [address] INR Coag RelTime (PPP) 2.98 {INR} High 0.90-1.10 [facility] Comment on above: Performed By: #### 3 [id number] #### [facility] [address] [place] [address] Prothrombin time (PT) Coag time (PPP) 33.4 s High 9.8-12.7 [facility] Healthcare Comment on above: Performed By: #### 3 706159 #### [facility] [address] [place] [address] TSHon 06-27-2018 Thyrotropin Qn 7.04 mU/L High 0.44-3.98 [facility] Comment on above: Performed By: #### 1 [id number] #### [facility] [address] [place] [address] Thyroxine, Freeon 06-27-2018 Thyroxine, Free 0.90 ng/dL Normal 0.61-1.12 [facility] Comment on above: Performed By: #### 1 [id number] #### [facility] [address] [place] [address] Triiodothyronine, Freeon Triiodothyronine, Free 2.3 pg/mL Normal 1.8-4.2 [facility] Comment on above: Performed By: #### F RT3 #### [facility] [address] [place] [address] Drugs of Abuse, Urine(7)on 0 05-12-2018 Amphetamines/Metamphet amines, Urine Not Detected Normal [facility] Comment on above: Performed By: #### 7 [id number] #### [facility] [address] [place] [address] Barbiturates, Urine Detected Abnormal [facility] Comment on above: Performed By: #### 7 [id number] #### [facility] [address] [place] [address] Benzodiazepines, Urine Not Detected Normal [facility] Comment on above: Performed By: #### 7 [id number] #### [facility] [address] [place] [address] Cannabinoids, Urine Not Detected Normal [facility] Comment on above: Performed By: #### 7 [id number] #### [facility] [address] [place] [address] Cocaine, Urine Not Detected Normal [facility] Comment on above: Performed By: #### 7 [id number] #### [facility] [address] [place] [address] Methadone, Urine Not Detected Normal [facility] Comment on above: Performed By: #### 7 [id number] #### [facility] [address] [place] [address] Opiates, Urine Not Detected Normal [facility] Healthcare Comment on above: Performed By: #### 7 [id number] #### [facility] [address] [place] [address] PCP, Urine Not Detected Normal [facility] Comment on above: Result Comment: Urin e toxicology screen results are to be used for medical purposes only. It is recommended that any result reported as Detected be confirmed by a more specific alternative chemical method. Drug Analyzed Cutoff Concentration(ng/mL) Barbiturates 200 Benzodiazepines 200 Cocaine 150 Opiates 300 Amphetamines 500 Cannabinoids 50 Methadone 150 PCP 25 Performed By: #### 7 [id number] #### [facility] [address] [place] [address] Vital Signs Date Time Vital Sign Value Performing Clinician Facility 08-18-2024 09:01-0500 Body height 157.5 cm [facility] 08-18-2024 09:01-0500 Body mass index (BMI) [Ratio] 25.92 kg/m2 [facility] 08-18-2024 09:01-0500 Body temperature 98.2 [degF] [facility] 08-18-2024 09:01-0500 Body weight 64.28 kg [facility]-18-[facility] 09:01-0500 Diastolic blood pressure 60 mm[Hg] [facility] 08-18-2024 09:01-0500 Heart rate 81 /min [facility]: [facility] 08-18-2024 09:01-0500 Respiratory rate 18 /min [facility]: [facility] 08-18-2024 09:01-0500 SaO2% (BldA) [Mass fraction] 98 % Red Furlong DO Work Phone: [email or web address] 08-18-2024 09:01-0500 Systolic blood pressure 92 mm[Hg] [facility] Furlong [facility] 05-31-2024 10:24-0400 Body height 157.5 cm Red Furlong [facility] 05-31-2024 10:24-0400 Body mass index (BMI) [Ratio] 28.97 kg/m2 Red Furlong DO [facility] 05-31-2024 10:24-0400 Body temperature 97.81 [degF] Red Kolbylong DO [facility] 05-31-2024 10:24-0400 Body weight 71.85 kg Red Furlong [facility] 05-31-2024 10:24-0400 Diastolic blood pressure 80 mm[Hg] Red Furlong DO [facility] 05-31-2024 10:24-0400 Heart rate 79 /min Red Kolbylong DO [facility] 05-31-2024 10:24-0400 SaO2% (BldA) [Mass fraction] 97 % Red Furlong DO [facility] 05-31-2024 10:24-0400 Systolic blood pressure 124 mm[Hg] Red [facility]long [facility] 05-11-2024 10:34-0400 Diastolic blood pressure 76 mm[Hg] Jameel Valenzuela ELECTRICIAN CONSTRUCTOR SUPERVISOR-BIOENGINEER Work Phone: [facility] 05-11-2024 10:34-0400 Heart rate 88 /min Jameel Valenzuela ELECTRICIAN CONSTRUCTOR SUPERVISOR-BIOENGINEER Work Phone: [facility] 05-11-2024 10:34-0400 Systolic blood pressure 112 mm[Hg] Jameel FlowersAbdoulayeHilton ELECTRICIAN CONSTRUCTOR SUPERVISOR-BIOENGINEER Work Phone: [facility] 03-30-2024 11:54-0400 Body temperature 97.4 [degF] MD Tanner Mae Jr Work Phone: [facility] 03-30-2024 11:54-0400 Diastolic blood pressure 74 mm[Hg] MD Tanner Mae Jr Work Phone: [facility] 03-30-2024 11:54-0400 Heart rate 81 /min MD Tanner Mae Jr Work Phone: [facility] 03-30-2024 11:54-0400 Respiratory rate 16 /min MD Tanner Mae Jr Work Phone: [facility] 03-30-2024 11:54-0400 SaO2% (BldA) [Mass fraction] 98 % MD Tanner Mae Jr Work Phone: [facility] 03-30-2024 11:54-0400 Systolic blood pressure 113 mm[Hg] MD Tanner Mae Jr Work Phone: [facility] 03-30-2024 03:37-0400 Body height 162.56 cm MD Tanner Mae Jr Work Phone: [facility] 03-30-2024 03:37-0400 Body weight 70.6 kg MD Tanner Mae Jr Work Phone: [facility] 03-30-2024 02:07-0400 Diastolic blood pressure 68 mm[Hg] MD Tanner Mae Jr Work Phone: [facility] 03-30-2024 02:07-0400 Heart rate 80 /min MD Tanner Mae Jr Work Phone: [facility] 03-30-2024 02:07-0400 Systolic blood pressure 157 mm[Hg] MD Tanner Mae Jr Work Phone: [facility] 03-30-2024 02:05-0400 Respiratory rate 16 /min MD Tanner Mae Jr Work Phone: [facility] 03-30-2024 02:05-0400 SaO2% (BldA) [Mass fraction] 99 % MD Tanner Mae Jr Work Phone: [facility] 03-29-2024 23:32-0400 Body height 162.56 cm MD Tanner Mae Jr Work Phone: [facility] 03-29-2024 23:32-0400 Body weight 70.9 kg MD Tanner Mae Jr Work Phone: [facility] 03-29-2024 23:30-0400 Body temperature 98 [degF] MD Tanner Mae Jr Work Phone: [facility] 02-22-2024 11:20-0400 Body height 152.4 cm MD Tanner Mae Jr Work Phone: [facility] 02-22-2024 11:20-0400 Diastolic blood pressure 72 mm[Hg] MD Tanner Mae Jr Work Phone: [facility] 02-22-2024 11:20-0400 Heart rate 80 /min MD Tanner Mae Jr Work Phone: [facility] 02-22-2024 11:20-0400 SaO2% (BldA) [Mass fraction] 98 % MD Tanner Mae Jr Work Phone: [facility] 02-22-2024 11:20-0400 Systolic blood pressure 120 mm[Hg] MD Tanner Mae Jr Work Phone: [facility] 02-18-2024 09:48-0400 Body height 152.4 cm MD Tanner Mae Jr Work Phone: [facility] 02-18-2024 09:48-0400 Body mass index (BMI) [Ratio] 29.5 kg/m2 MD Tanner Mae Jr Work Phone: [facility] 02-18-2024 09:48-0400 Body weight 68.49 kg MD Tanner Mae Jr Work Phone: [facility] 02-18-2024 09:48-0400 Diastolic blood pressure 60 mm[Hg] MD Tanner Mae Jr Work Phone: [facility] 02-18-2024 09:48-0400 Heart rate 67 /min MD Tanner Mae Jr Work Phone: [facility] 02-18-2024 09:48-0400 SaO2% (BldA) [Mass fraction] 97 % MD Tanner Mae Jr Work Phone: [facility] 02-18-2024 09:48-0400 Systolic blood pressure 100 mm[Hg] MD Tanner Mae Jr Work Phone: [facility] 01-24-2024 07:01-0400 Diastolic blood pressure 56 mm[Hg] MD Tanner Mae Jr Work Phone: [facility] 01-24-2024 07:01-0400 Heart rate 80 /min MD Tanner Mae Jr Work Phone: [facility] 01-24-2024 07:01-0400 Respiratory rate 14 /min MD Tanner Mae Jr Work Phone: [facility] 01-24-2024 07:01-0400 SaO2% (BldA) [Mass fraction] 100 % MD Tanner Mae Jr Work Phone: [facility] 01-24-2024 07:01-0400 Systolic blood pressure 117 mm[Hg] MD Tanner Mae Jr Work Phone: [facility] 01-24-2024 00:46-0400 Body height 152.4 cm MD Tanner Mae Jr Work Phone: [facility] 01-24-2024 00:46-0400 Body temperature 97.6 [degF] MD Tanner Mae Jr Work Phone: [facility] 01-24-2024 00:46-0400 Body weight 65.31 kg MD Tanner Mae Jr Work Phone: [facility] 11-11-2023 16:14-0400 Body height 152.4 cm DO Darian Itzkowitz Work Phone: [facility] 11-11-2023 16:14-0400 Body mass index (BMI) [Ratio] 29.2 kg/m2 DO Darian Itzkowitz Work Phone: [facility] 11-11-2023 16:14-0400 Body temperature 97.8 [degF] DO Darian Itzkowitz Work Phone: [facility] 11-11-2023 16:14-0400 Body weight 68.03 kg DO Darian Itzkowitz Work Phone: [facility] 11-11-2023 16:14-0400 Diastolic blood pressure 68 mm[Hg] DO Darian Itzkowitz Work Phone: [facility] 11-11-2023 16:14-0400 Heart rate 88 /min DO Darian Itzkowitz Work Phone: [facility] 11-11-2023 16:14-0400 Respiratory rate 18 /min DO Darian Itzkowitz Work Phone: [facility] 11-11-2023 16:14-0400 SaO2% (BldA) [Mass fraction] 99 % DO Darian Itzkowitz Work Phone: [facility] 11-11-2023 16:14-0400 Systolic blood pressure 134 mm[Hg] DO Darian Itzkowitz Work Phone: [facility] 10-07-2023 08:44-0500 Diastolic blood pressure 77 mm[Hg] Noman Glover MD Work Phone: [facility] 10-07-2023 08:44-0500 Heart rate 80 /min Noman Glover MD Work Phone: [facility] [employer] 10-07-2023 08:44-0500 Systolic blood pressure 113 mm[Hg] Noman Glover MD Work Phone: [facility] 10-07-2023 08:00-0500 Body temperature 99.3 [degF] Noman Glover MD Work Phone: [facility] 10-07-2023 08:00-0500 Respiratory rate 18 /min Noman Glover MD Work Phone: [facility] 10-07-2023 08:00-0500 SaO2% (BldA) [Mass fraction] 97 % Noman Glover MD Work Phone: [facility] [employer] 10-06-2023 04:41-0500 Body mass index (BMI) [Ratio] 26.61 kg/m2 Noman Glover MD Work Phone: [facility] 10-06-2023 04:41-0500 Body weight 66 kg Noman Glover MD Work Phone: [facility] [employer] 10-05-2023 19:24-0500 Body height 157.5 cm Noman Glover MD Work Phone: [facility] [employer] 09-29-2023 08:20-0500 SaO2% (BldA) [Mass fraction] 98 % Margareth Nunez MD Work Phone: [facility] 09-29-2023 06:08-0500 Body height 157.5 cm Margareth Nunez MD Work Phone: [facility] 09-29-2023 06:08-0500 Body mass index (BMI) [Ratio] 27.46 kg/m2 Margareth Nunez MD Work Phone: [facility] 09-29-2023 06:08-0500 Body temperature 98.8 [degF] Margareth Nunez MD Work Phone: [facility] 09-29-2023 06:08-0500 Body weight 68.1 kg Margareth Nunez MD Work Phone: [facility] 09-29-2023 06:08-0500 Diastolic blood pressure 63 mm[Hg] Margraeth Nunez MD Work Phone: [facility] 09-29-2023 06:08-0500 Heart rate 81 /min Margareth Nunez MD Work Phone: [facility] 09-29-2023 06:08-0500 Respiratory rate 16 /min Margareth Nunez MD Work Phone: [facility] 09-29-2023 06:08-0500 Systolic blood pressure 119 mm[Hg] Margareth Nunez MD Work Phone: [facility] 04-24-2022 13:31-0400 Body height 157.48 cm Shaikh Mallorywad Work Phone: [facility] DO Work Phone: 04-24-2022 13:31-0400 Body mass index (BMI) [Ratio] 29.63 kg/m2 Shaikh Mallorywad Work Phone: [facility] DO Work Phone: 04-24-2022 13:31-0400 Body surface area Derived from formula 1.75 m2 Shaikh Sherifprettyd Work Phone: [facility] DO Work Phone: 04-24-2022 13:31-0400 Body weight 73.48 kg Shaikh Mallorywad Work Phone: [facility] DO Work Phone: 04-24-2022 13:31-0400 Diastolic blood pressure 60 mm[Hg] Shaikh Sherifwwad Work Phone: [facility] DO Work Phone: 04-24-2022 13:31-0400 Heart rate 85 /min Shaikh Crystal Work Phone: [facility] DO Work Phone: 04-24-2022 13:31-0400 Systolic blood pressure 102 mm[Hg] Shaikh Crystal Work Phone: [facility] DO Work Phone: 12-10-2021 06:30-0400 Body height 160.02 cm Jeane [employer] Other [facility] [employer] Other 12-05-2021 08:47-0400 Body height 157.48 cm No PCP None [facility] DO Work Phone: 12-05-2021 08:47-0400 Body mass index (BMI) [Ratio] 27.49 kg/m2 No PCP None [facility] DO Work Phone: 12-05-2021 08:47-0400 Body surface area Derived from formula 1.69 m2 No PCP None [facility] DO Work Phone: 12-05-2021 08:47-0400 Body weight 68.18 kg No PCP None [facility] DO Work Phone: 12-05-2021 08:47-0400 Diastolic blood pressure 72 mm[Hg] No PCP None [facility] DO Work Phone: 12-05-2021 08:47-0400 Heart rate 76 /min No PCP None [facility] DO Work Phone: 12-05-2021 08:47-0400 Systolic blood pressure 104 mm[Hg] No PCP None [facility] DO Work Phone: 10-14-2021 11:23-0500 20 1 Diane Hoskins DO Work Phone: [facility] DO Work Phone: Comment on above: [id number] 10-13-2021 22:41-0500 Diastolic blood pressure 46 mm[Hg] DO Darian Itzkowitz Work Phone: [facility] 10-13-2021 22:41-0500 Heart rate 59 /min DO Darian Itzkowitz Work Phone: [facility] 10-13-2021 22:41-0500 Systolic blood pressure 80 mm[Hg] DO Darian Itzkowitz Work Phone: [facility] 10-13-2021 21:29-0500 Respiratory rate 18 /min DO Darian Itzkowitz Work Phone: [facility] 10-13-2021 21:29-0500 SaO2% (BldA) [Mass fraction] 96 % DO Darian Itzkowitz Work Phone: [facility] 10-13-2021 13:17-0500 Body height 160.02 cm DO Darian Itzkowitz Work Phone: [facility] 10-13-2021 13:17-0500 Body mass index (BMI) [Ratio] 26.5 kg/m2 DO Darian Itzkowitz Work Phone: [facility] 10-13-2021 13:17-0500 Body temperature 97.4 [degF] DO Darian Itzkowitz Work Phone: [facility] 10-13-2021 13:17-0500 Body weight 68.03 kg DO Darian Itzkowitz Work Phone: [facility] 11-25-2020 15:56-0400 Body Temperature 97.5 [degF] Darian Itzkowitz [facility] 11-25-2020 15:56-0400 BP Diastolic 85 mm[Hg] Darian Itzkowitz [facility] 11-25-2020 15:56-0400 BP Systolic 130 mm[Hg] Dariandebbie Smiley [facility] 11-25-2020 15:56-0400 Pulse (Heart Rate) 79 /min Dariandebbie Smiley [facility] 11-25-2020 15:56-0400 Pulse Oximetry 98 % Dariandebbie Smiley [facility] 11-25-2020 15:56-0400 Respiratory Rate 18 /min [facility] Baljit [facility] 11-25-2020 15:56-0400 SaO2% (BldA) [Mass fraction] 98 % Darian Smiley Work Phone: [facility] 11-25-2020 15:19-0400 Height 157.48 cm [facility] Baljit [facility] 11-25-2020 05:57-0400 Body weight 83.9 kg [facility] Baljit [facility] 11-23-2020 18:10-0400 BMI (Body Mass Index) 33.9 kg/m2 [facility] Baljit [facility] 11-23-2020 18:10-0400 Body Temperature 97.9 [degF] [facility] Baljit [facility] 11-23-2020 18:10-0400 Body weight 84.2 kg Darian Baljit [facility] 11-23-2020 18:10-0400 BP Diastolic 81 mm[Hg] Dariandebbie Smiley [facility] 11-23-2020 18:10-0400 BP Systolic 121 mm[Hg] [facility] Baljit [facility] 11-23-2020 18:10-0400 Height 157.48 cm [facility] Baljit [facility] 11-23-2020 18:10-0400 Pulse (Heart Rate) 83 /min [facility]-2020 18:10-0400 Pulse Oximetry 97 % Darian Baljit [facility] 11-23-2020 18:10-0400 Respiratory Rate 19 /min Darian Baljit [facility] 08-17-2020 03:00-0500 Body Temperature 97.5 [degF] [facility] Baljit [facility] 08-17-2020 03:00-0500 BP Diastolic 52 mm[Hg] Darian Baljit [facility] 08-17-2020 03:00-0500 BP Systolic 98 mm[Hg] Darian Baljit [facility] 08-17-2020 03:00-0500 Pulse (Heart Rate) 94 /min Darian Baljit [facility] 08-17-2020 03:00-0500 Pulse Oximetry 99 % Darian Baljit [facility] 08-17-2020 03:00-0500 Respiratory Rate 16 /min [facility] Baljit [facility] 08-16-2020 22:30-0500 BMI (Body Mass Index) 4648.4 kg/m2 [facility] Baljit [facility] 08-16-2020 22:30-0500 Body weight 81.1 kg Darian Baljit [facility] 08-16-2020 22:30-0500 Height 13.21 cm [facility] Baljit [facility] 08-16-2020 22:18-0500 BP Diastolic 56 mm[Hg] Darian Baljit [facility] 08-16-2020 22:18-0500 BP Systolic 107 mm[Hg] Darian Baljit [facility] 08-16-2020 22:18-0500 Pulse (Heart Rate) 96 /min Darian Baljit [facility] 08-16-2020 22:18-0500 Pulse Oximetry 95 % [facility] Baljit [facility] 08-16-2020 22:18-0500 Respiratory Rate 18 /min [facility] Baljit [facility] 08-16-2020 15:38-0500 BMI (Body Mass Index) 28.3 kg/m2 [facility] Lienaznate [facility] 08-16-2020 15:38-0500 Body Temperature 97.4 [degF] [facility] Baljit [facility] 08-16-2020 15:38-0500 Body weight 72.57 kg [facility] Baljit [facility] 08-16-2020 15:38-0500 Height 160.02 cm [facility] Baljit [facility] 07-26-2020 01:57-0500 BP Diastolic 58 mm[Hg] [facility] Baljit [facility] 07-26-2020 01:57-0500 BP Systolic 118 mm[Hg] [facility] 07-26-2020 01:57-0500 Pulse (Heart Rate) 59 /min [facility] 07-26-2020 01:57-0500 Pulse Oximetry 97 % [facility] Baljit [facility] 07-26-2020 01:57-0500 Respiratory Rate 16 /min [facility] Baljit [facility] 07-26-2020 00:44-0500 BMI (Body Mass Index) 30.5 kg/m2 [facility] Lienaznate [facility] 07-26-2020 00:44-0500 Body Temperature 98.4 [degF] [facility] Baljit [facility] 07-26-2020 00:44-0500 Body weight 75.74 kg [facility] Baljit [facility] 07-26-2020 00:44-0500 Height 157.48 cm [facility] Lienaznate [facility] 07-22-2020 22:23-0500 BP Diastolic 63 mm[Hg] [facility] Baljit [facility] 07-22-2020 22:23-0500 BP Systolic 131 mm[Hg] Darian Baljit [facility] 07-22-2020 22:23-0500 Pulse (Heart Rate) 60 /min Darianrakesh Smiley [facility] 07-22-2020 22:23-0500 Pulse Oximetry 98 % [facility] Baljit [facility] 07-22-2020 22:23-0500 Respiratory Rate 18 /min [facility] Baljit [facility] 07-22-2020 17:54-0500 BMI (Body Mass Index) 31.8 kg/m2 [facility] Baljit [facility] 07-22-2020 17:54-0500 Body Temperature 98 [degF] Draianrakesh Smiley [facility] 07-22-2020 17:54-0500 Body weight 78.9 kg [facility] Baljit [facility] 07-22-2020 17:54-0500 Height 157.48 cm [facility] Baljit [facility] 07-19-2020 10:11-0500 BP Diastolic 60 mm[Hg] Darian Baljit [facility] 07-19-2020 10:11-0500 BP Systolic 138 mm[Hg] [facility] Baljit [facility] 07-19-2020 10:11-0500 Pulse (Heart Rate) 94 /min Darian Baljit [facility] 07-19-2020 10:11-0500 Pulse Oximetry 98 % Darian Baljit [facility] 07-19-2020 10:11-0500 Respiratory Rate 16 /min [facility] Baljit [facility] 07-19-2020 07:25-0500 BMI (Body Mass Index) 30.9 kg/m2 [facility] 07-[facility] 07:25-0500 Body Temperature 98 [degF] Darianrakesh Smiley [facility] 07-19-2020 07:25-0500 Body weight 76.7 kg [facility] Baljit [facility] 07-19-2020 07:25-0500 Height 157.48 cm [facility] Baljit [facility] 06-15-2020 21:00-0400 Body Temperature 98.1 [degF] [facility] Baljit [facility] 06-15-2020 21:00-0400 BP Diastolic 77 mm[Hg] Darian Baljit [facility] 06-15-2020 21:00-0400 BP Systolic 124 mm[Hg] [facility] Baljit [facility] 06-15-2020 21:00-0400 Pulse (Heart Rate) 61 /min [facility] Baljit [facility] 06-15-2020 21:00-0400 Pulse Oximetry 96 % [facility] Baljit [facility] 06-15-2020 21:00-0400 Respiratory Rate 16 /min [facility] Baljit [facility] 06-15-2020 17:00-0400 BMI (Body Mass Index) 30.9 kg/m2 [facility] Baljit [facility] 06-15-2020 17:00-0400 Body weight 76.7 kg [facility] Baljit [facility] 06-15-2020 17:00-0400 Height 157.48 cm [facility] Baljit [facility] 06-07-2020 17:00-0400 Body Temperature 97.2 [degF] [facility] Baljit [facility] 06-07-2020 17:00-0400 BP Diastolic 71 mm[Hg] [facility] Baljit [facility] 06-07-2020 17:00-0400 BP Systolic 104 mm[Hg] [facility] Baljit [facility] 06-07-2020 17:00-0400 Pulse (Heart Rate) 60 /min [facility] 06-07-2020 17:00-0400 Pulse Oximetry 98 % [facility] 06-07-2020 17:00-0400 Respiratory Rate 14 /min [facility] 06-07-2020 06:56-0400 Body weight 84.1 kg [facility] 06-05-2020 14:28-0400 Height 157.48 cm [facility] 06-05-2020 06:29-0400 BMI (Body Mass Index) 32.8 kg/m2 [facility] Encounters Encounter Date Encounter Type Care Provider Facility Start: 09-29-2024 End: 09-29-2024 Orders Only [facility] Strickland [facility] Start: 09-28-2024 End: 09-28-2024 Refill Red Johnsonlong [facility] Start: 09-07-2024 End: 09-12-2024 Telephone encounter Shayy Elias CMA [facility] - [facility] Start: 08-28-2024 End: 08-28-2024 Orders Only Red Johnsonlong DO [facility] Start: 08-18-2024 End: 08-19-2024 Refill Red Johnsonlong DO [facility] Comment on above: Insomnia, unspecifie d type Panic anxiety syndro me Start: 08-18-2024 End: 08-18-2024 Transitional care manage srvc 7 day discharge Redjames Johnsonlong DO [facility] Comment on above: Ventricular tachycar vero (CMS-HCC) (Primary Dx); Depression, unspecified depression type; Insomnia, unspecified type; Congestive heart failure, unspecified HF chronicity, unspecified heart failure type ([facility]-HCC); Overweight (BMI 25.0-29.9); Gastritis without bleeding, unspecified chronicity, unspecified gastritis type; Colon cancer screening Start: 08-18-2024 End: 08-18-2024 ambulatory [facility] Start: 08-13-2024 End: 08-13-2024 ambulatory Obestevan Milesr Facility:[facility] Start: 08-08-2024 End: 08-08-2024 ambulatory Karen Marcuser Facility:[facility] Start: 08-01-2024 End: 08-01-2024 Refill Red Strickland DO Work Phone: [facility] Start: 07-25-2024 End: 07-25-2024 Refill [facility] Start: 07-11-2024 End: 2024 Orders Only Red Strickland DO Work Phone: [facility] Comment on above: Depressed mood in Al zheimer's disease ([facility]) ; Panic anxiety syndrome Start: 06-20-2024 End: 06-21-2024 [facility] Start: 06-08-2024 End: 06-08-2024 Refill Red Strickland DO [facility] Start: 06-07-2024 End: 06-07-2024 Refill [facility] - [facility] Start: 05-31-2024 End: 05-31-2024 Office outpatient new 45 minutes Red Nailsng DO Work Phone: [facility] Comment on above: Coronary artery dise ase involving [place] coronary artery of [place] heart, unspecified whether angina present (Primary Dx); Depressed mood in Alzheimer's disease ([facility]) ; Renal artery stenosis ([facility]-HCC); Restless leg syndrome; Panic anxiety syndrome; Need for immunization against influenza; Other migraine without status migrainosus, not intractable Start: 05-31-2024 End: 05-31-2024 [facility] Start: 05-27-2024 End: 06-02-2024 Emergency department patient visit [facility] Start: 05-26-2024 ambulatory [facility] Start: 05-11-2024 End: 05-11-2024 Office outpatient visit 25 minutes Jameel Valenzuela ELECTRICIAN CONSTRUCTOR SUPERVISOR-BIOENGINEER Work Phone: [facility] Comment on above: Biventricular implan table cardioverter-defibrillator (ICD) in situ (Primary Dx); Atrial tachycardia (CMS-HCC); Atherosclerosis of coronary artery bypass graft of [place] heart without angina pectoris; Atrial flutter, unspecified type (Multi); Chronic systolic congestive heart failure (Multi); Ischemic cardiomyopathy; Mixed hyperlipidemia; Paroxysmal atrial fibrillation (Multi); VT (ventricular tachycardia) ([facility]); High risk medication use Start: 05-11-2024 End: 05-11-2024 Subsequent hospital visit by physician [facility] Comment on above: Biventricular implan table cardioverter-defibrillator (ICD) in situ Start: 05-11-2024 End: 05-11-2024 ambulatory JAMEEL VALENZUELA [facility] Start: 03-30-2024 End: 03-30-2024 ambulatory Kendrick Jorgensen Facility:[facility] Start: 03-30-2024 End: 03-30-2024 Evaluation and management of inpatient MD Tanner Mae Jr Work Phone: [facility] [place] [facility] Work Phone: Start: 03-30-2024 End: 03-30-2024 observation encounter MD Tanner Mae Jr Work Phone: [facility] Work Phone: Start: 02-22-2024 End: 02-22-2024 ambulatory MD Tanner Mae Jr Work Phone: [facility] Work Phone: Start: 02-22-2024 End: 02-22-2024 Patient encounter procedure MD Tanner Mae Jr Work Phone: [facility] Work Phone: Start: 02-18-2024 End: 02-18-2024 ambulatory MD Tanner Mae Jr Work Phone: [facility] Work Phone: Start: 02-18-2024 End: 02-18-2024 Patient encounter procedure MD Tanner Mae Jr Work Phone: [facility] Work Phone: Start: 02-17-2024 Non-patient / Non-visit MD Jon Schreiber Work Phone: [facility] Work Phone: Start: 01-24-2024 End: 01-24-2024 Emergency department patient visit MD Tanner Mae Jr Work Phone: [facility]-Emergency Room Work Phone: Start: 01-04-2024 End: 01-07-2024 ambulatory LIAM HYMAN [facility] Start: 11-11-2023 End: 11-11-2023 ambulatory DO Darian Baljit Work Phone: [facility] Work Phone: Start: 11-11-2023 End: 11-11-2023 Patient encounter procedure DO Darian Baljit Work Phone: [facility] Work Phone: Start: 10-12-2023 End: 10-13-2023 ambulatory NORAH [facility] Start: 10-12-2023 End: 10-12-2023 Subsequent hospital visit by physician Heydi Jiang [facility] Medication Management Comment on above: Longstanding persist ent atrial fibrillation (HCC) (Primary Dx) Start: 10-11-2023 End: 10-12-2023 ambulatory [facility] Start: 10-11-2023 End: 10-11-2023 Subsequent hospital visit by physician Marcelo Champagne [facility] Work Phone: [facility] Medication Management Start: 10-06-2023 ambulatory Arjun EPPS Facility :[facility] Start: 10-05-2023 End: 10-07-2023 ambulatory [facility] Start: 10-05-2023 End: 10-07-2023 Emergency department patient visit Noman Glover MD Work Phone: [facility] Comment on above: Hypokalemia (Primary Dx); Dizziness; Longstanding persistent atrial fibrillation (HCC) Start: 09-29-2023 End: 09-29-2023 ambulatory [facility] Start: 09-29-2023 End: 09-29-2023 Subsequent hospital visit by physician Margareth Nunez MD [facility] Phone[facility] Comment on above: Biventricular implan table cardioverter-defibrillator (ICD) in situ (Primary Dx); Elective replacement of implantable cardioverter-defibrillator (ICD) battery required; Atrial tachycardia; Paroxysmal atrial fibrillation (CMS/HCC); CAD (coronary artery disease); VT (ventricular tachycardia) (CMS/HCC) Start: 09-27-2023 End: 09-27-2023 ambulatory Amanda Grace Other [employer] Other Start: 09-27-2023 Telephone encounter Amanda Herzog her [facility] Start: 09-22-2023 End: 09-22-2023 ambulatory Amanda Grace Other [employer] Other Start: 09-22-2023 Telephone encounter Amanda Herzog her [facility] Start: 09-03-2023 ambulatory [facility] Start: 09-02-2023 End: 09-02-2023 Subsequent hospital visit by physician [facility] Comment on above: ICD (implantable car dioverter-defibrillator) battery depletion Start: 09-02-2023 End: 09-02-2023 ambulatory [facility] Start: 08-31-2023 End: 08-31-2023 ambulatory Amanda Grace Other [employer] Other Start: 08-31-2023 Telephone encounter Amanda Mino her [facility] Start: 08-09-2023 End: 08-09-2023 Patient encounter procedure PETE Grace Work Phone: [facility] Start: 08-09-2023 End: 08-09-2023 ambulatory PETE Grace Work Phone: [facility] Work Phone: Comment on above: Persistent atrial fi brillation (HCC) (Primary Dx) Start: 08-02-2023 End: 08-02-2023 ambulatory Amanda Grace Other [employer] Other Start: 08-02-2023 Telephone encounter Amanda Mino her [facility] Start: 07-28-2023 Telephone encounter David Osei MD Work Phone: Cardiology Start: 07-25-2023 Follow-up encounter David Osei MD Work Phone: [facility] Start: 07-25-2023 ICD Remote F/U David fairbanks MD Work Phone: [facility] Department Start: 07-07-2023 ambulatory Arjun EPPS Facility : [facility] Start: 06-04-2023 ambulatory Arjun EPPS Facility : [facility] Start: 06-03-2023 ambulatory Arjun EPPS Facility:[facility] Start: 04-30-2023 Follow-up encounter David Osei MD Work Phone: [facility] Start: 04-30-2023 ICD Remote F/U David fairbanks MD Work Phone: [facility] Department Start: 04-17-2023 Follow-up encounter David Osei MD Work Phone: [facility] Start: 04-17-2023 ICD Remote F/U David fairbanks MD Work Phone: [facility] Start: 04-05-2023 Follow-up encounter David Osei MD Work Phone: [facility] Start: 04-05-2023 ICD Remote F/U David fairbanks MD Work Phone: [facility] Department Start: 03-29-2023 Rx Renewal Shaikh Crystal Work Phone: [facility] [address] DO Work Phone: Start: 03-24-2023 Follow-up encounter David Osei MD Work Phone: [facility] Start: 03-24-2023 ICD Remote F/U David fairbanks MD Work Phone: [facility] Start: 03-20-2023 Follow-up encounter David Osei MD Work Phone: [facility] Start: 03-20-2023 ICD Remote F/U David fairbanks MD Work Phone: [facility] Start: 03-15-2023 ambulatory Margareth Nunez M.D. Facility : Start: 02-28-2023 Follow-up encounter David Osei MD Work Phone: [facility] Start: 02-28-2023 ICD Remote F/U David fairbanks MD Work Phone: [facility] Start: 02-25-2023 Follow-up encounter David Osei MD Work Phone: [facility] Start: 02-25-2023 ICD Remote F/U David fairbanks MD Work Phone: [facility] Start: 01-28-2023 AUDIT Roy Fawwad Work Phone: [facility] [address] DO Work Phone: Start: 01-27-2023 End: 01-27-2023 ambulatory ROY H FAWWAD Facility:H1 Start: 01-26-2023 Rx Renewal Roy Fawwad Work Phone: [facility] [address] DO Work Phone: Start: 01-03-2023 End: 01-03-2023 ambulatory ROY H FAWWAD Facility:H1 Start: 12-28-2022 End: 01-27-2023 ambulatory ROY H FAWWAD Facility:H1 Start: 11-30-2022 End: 12-25-2022 ambulatory ROY H FAWWAD Facility:H1 Start: 11-25-2022 Follow-up encounter David Osei MD Work Phone: [facility] Start: 11-25-2022 ICD Remote F/U David fairbanks MD Work Phone: [facility] Start: 10-28-2022 End: 11-27-2022 ambulatory [...] Follow-up encounter David Osei MD Work Phone: [facility] Start: 08-17-2022 ICD Remote F/U David fairbanks MD Work Phone: [facility] Start: 07-30-2022 End: 08-30-2022 ambulatory ROY H SHERIFWWAD Facility:H1 Start: 07-27-[address] [facility] Comment on above: Opened In Error Start: 06-30-2022 End: 07-29-2022 ambulatory SHAIKH Shawna VÁZQUEZWAD Facility:H1 Start: 06-29-2022 Other Shaikh Crystal Work Phone: [facility] [address] DO Work Phone: Start: 06-29-2022 Follow-up encounter David Osei MD Work Phone: [facility] Start: 06-29-2022 ICD Remote F/U David fairbanks MD Work Phone: [facility] Start: 05-31-2022 End: 06-29-2022 ambulatory ROY H SHERIFWWAD Facility:H1 Start: 05-28-2022 Follow-up encounter David Osei MD Work Phone: [facility] Start: 05-28-2022 ICD Remote F/U David fairbanks MD Work Phone: [facility] Start: 05-06-2022 Patient encounter procedure Shaikh Crystal Work Phone: [facility] [address] DO Work Phone: Start: 04-30-2022 End: 05-30-2022 ambulatory SHAIKH Shawna NOD Facility:H1 Start: 04-24-2022 Current tobacco non-user cad cap copd pv dm Roy Radhad Work Phone: [facility] [address] DO Work Phone: Start: 04-23-2022 End: 04-24-2022 ambulatory SHAIKH Shawna NOD Facility:H1 Start: 04-16-2022 End: 04-17-2022 ambulatory ROY Shawna ROJAS Facility:H1 Start: 04-09-2022 Follow-up encounter David Osie MD Work Phone: [facility] Start: 04-09-2022 ICD Remote F/U David fairbanks MD Work Phone: [facility] Start: 04-07-2022 Telephone encounter No PCP None Pending sale to [facility] DO Work Phone: Start: 03-30-2022 End: 04-29-2022 ambulatory ROY Shawna ROJAS Facility:H1 Start: 03-12-2022 Rx Renewal No [facility]CP [facility] Work Phone: Start: 03-02-2022 End: 03-27-2022 ambulatory SHAIKH Shawna ROJAS Facility:H1 Start: 02-24-2022 Telephone encounter No PCP None Pending sale to [facility] [address] DO Work Phone: Start: 02-18-2022 Rx Renewal No PCP None [facility] [address] DO Work Phone: Start: 02-17-2022 Patient encounter procedure No PCP None [facility] [address] DO Work Phone: Start: 01-22-2022 Chart Update No PCP None [facility] [facility] [address] [place] Work Phone: Start: 01-08-2022 Follow-up encounter David Osei MD Work Phone: [facility] Start: 01-08-2022 ICD Remote F/U David fairbanks MD Work Phone: [facility] Start: 01-07-2022 AUDIT No PCP None -[facility] [address] DO Work Phone: Start: 12-31-2021 End: 12-31-2021 ambulatory Jeane Fitt Other [employer] Other Start: 12-31-2021 Telephone encounter Jeane Juan [facility] Start: 12-26-2021 End: 12-26-2021 ambulatory Jeane Fitt Other [employer] Other Start: 12-26-2021 Telephone encounter Jeane Juan [facility] Start: 12-23-2021 ([facility] R A/c) [facility] Repeat A/C Jeane Juan [facility] Start: 12-23-2021 End: 12-23-2021 ambulatory Jeane Fitt Other [employer] Other Start: 12-17-2021 (Repeat [facility]) Jeane [facility] Start: 12-17-2021 End: 12-17-2021 ambulatory Jeane Fitt Other [employer] Other Start: 12-17-2021 Telephone encounter Jeane Fitt [facility] Start: 12-12-2021 AUDIT No PCP None -[facility] [address] DO Work Phone: Start: 12-11-2021 End: 12-11-2021 ambulatory Jeane Fitt Other [employer] Other Start: 12-11-2021 Telephone encounter Jeane Jania Higuera [facility] Start: 12-10-2021 (Repeat [facility]) Jeane [facility] Start: 12-10-2021 End: 12-10-2021 ambulatory Jeane Fitt Other [employer] Other Start: 12-05-2021 Current tobacco non-user cad cap copd pv dm No PCP None [facility] [address] DO Work Phone: Start: 11-26-2021 End: 11-26-2021 ambulatory Jeane Fitt Other [employer] Other Start: 11-26-2021 Telephone encounter Jeane Jania [facility] Start: 11-19-2021 (Repeat [facility]) Jeane Dykes [facility] Start: 11-19-2021 End: 11-19-2021 ambulatory Jeane Fitt Other [employer] Other Start: 11-19-2021 Telephone encounter Jeane Higuera [facility] Start: 11-18-2021 End: 11-18-2021 ambulatory Jeane Fitt Other [employer] Other Start: 11-18-2021 Telephone encounter Jeane Juan [facility] Start: 11-11-2021 ([facility] R A/c) [facility] Repeat A/C Jeane Jania [facility] Start: 11-11-2021 End: 11-11-2021 ambulatory Jeane Fitt Other [employer] Other Start: 11-10-2021 End: 11-10-2021 ambulatory Jeane Fitt Other [employer] Other Start: 11-10-2021 Telephone encounter Jeane Juan [facility]t [facility] Start: 11-05-2021 (Repeat [facility]) Jeane Dykes [facility] Start: 11-05-2021 End: 11-05-2021 ambulatory Jeane Fitt Other [employer] Other Start: 11-03-2021 End: 11-03-2021 ambulatory Jeane Fitt Other [employer] Other Start: 11-03-2021 Telephone encounter Jeane Juan [facility] [facility] Start: 10-30-2021 End: 10-30-2021 ambulatory Jeane Fitt Other [employer] Other Start: 10-30-2021 Telephone encounter Jeane Juan Ft [facility] Start: 10-29-2021 (Repeat [facility]) Jeanealfredo Dykes [facility] Start: 10-29-2021 End: 10-29-2021 ambulatory Jeane Fitt Other [employer] Other Start: 10-29-2021 Telephone encounter Jeane Juan [facility] [facility] Start: 10-23-2021 (Repeat [facility]) Jeane Dykes [facility] Start: 10-23-2021 End: 10-23-2021 ambulatory Jeane Fitt Other [employer] Other Start: 10-22-2021 Patient encounter procedure Diane Hoskins DO Work Phone: [facility] [address] DO Work Phone: Start: 10-13-2021 Evaluation and management of inpatient DO Darian Smiley Work Phone: [facility] [place] [facility] Start: 09-09-2021 End: 09-09-2021 ambulatory Jeane Fitt Other [employer] Other Start: 09-09-2021 Telephone encounter Jeane Higuera [facility] Start: 09-04-2021 ([facility] R A/c) [facility] Repeat A/C Jeane Juan Ft [facility] Start: 09-04-2021 End: 09-04-2021 ambulatory Jeane Fitt Other [employer] Other Start: 09-04-2021 Telephone encounter Jeanealfredo Higuera [facility] Start: 09-04-2021 Registered Recurring DO Sena Smiley Work Phone: [facility] Start: 08-04-2021 End: 08-04-2021 ambulatory Jeanealfredo Rogelt Other [employer] Other Start: 08-04-2021 Telephone encounter Jeane Dykes [facility] Start: 07-28-2021 Patient encounter procedure Diane Hoskins DO Work Phone: [facility] [address] DO Work Phone: Start: 07-17-2021 ([facility] R A/c) [facility] Repeat A/C Jeane Dykes [facility] Start: 07-17-2021 End: 07-17-2021 ambulatory Jeane Fitt Other [employer] Other Start: 06-30-2021 ([facility] R A/c) [facility] Repeat A/C Jeane Juan Ft [facility] Start: 06-30-2021 End: 06-30-2021 ambulatory Jeane Fitt Other [employer] Other Start: 06-20-2021 Telephone encounter Jeane Higuera [facility] Start: 06-09-2021 ([facility] R A/c) [facility] Repeat A/C Jeane Juan Ft [facility] Start: 11-23-2020 End: 11-25-2020 Evaluation and management of inpatient Darian Itzkowitz -3 [place] [facility] Start: 09-17-2020 Registered Recurring Darian sullivan [facility] Start: 08-16-2020 End: 08-17-2020 Evaluation and management of inpatient Darian Itzkowitz -4 [place] [facility] Start: 08-05-2020 Registered Recurring Darian Cantor tz [facility] Start: 07-26-2020 End: 07-26-2020 Emergency department patient visit Darian Itzkowitz -Emergency Room Start: 07-22-2020 End: 07-22-2020 Emergency department patient visit Darian Itzkowitz -Emergency Room Start: 07-19-2020 End: 07-19-2020 Emergency department patient visit Darian Itzkowitz -Emergency Room Start: 06-15-2020 End: 06-15-2020 Evaluation and management of inpatient Darian Itzkowitz -4 [place] [facility] Start: 06-05-2020 End: 06-07-2020 Evaluation and management of inpatient Darian Itzkowitz -3 [place] [facility] Start: 11-08-2019 ambulatory UNKNOWN PROVIDER Facili ty:[facility] Start: 10-12-2018 End: 10-12-2018 Patient encounter procedure MARGARETH MAYRA Facility:[facility] Start: 10-07-2018 Patient encounter procedure JAMEEL VALENZUELA Facility:7 Start: 08-04-2018 End: 08-05-2018 Patient encounter procedure MARGARETH MAYRA Facility:[facility] Start: 08-02-2018 Patient encounter procedure AGUILA VASQUEZ Facility:[id number] Start: 06-27-2018 End: 07-01-2018 Evaluation and management of inpatient MARGARETH MAYRA Facility:[facility] Start: 05-12-2018 End: 05-12-2018 Patient encounter procedure MARGARETH MAYRA Facility:[facility] Start: 11-29-2003 Evaluation and management of inpatient Darian Itzkowitz -4 [place] [facility] Patient encounter status No PCP None -[facility] [address] DO Work Phone: Procedures Date Procedure Procedure Detail Performing Clinician Start: 08-18-2024 Follow-up visit Follow-up RED STRICKLAND Start: 08-18-2024 Adult depression screening assessment Red Strickland DO Work Phone: Start: 05-31-2024 Adult depression screening assessment Red Strickland DO Work Phone: Start: 05-11-2024 Ecg routine ecg w/least 12 lds w/i&r Jameelgreta Valenzuela [employer]IAN [employer]STRUCTOR SUPERVISOR-BIOENGINEER Work Phone: Start: 05-11-2024 Prgrmg eval implantable in person multi lead dfb Jameelgreta Valenzuela [employer]LECTRICIAN CONSTRUCTOR SUPERVISOR-BIOENGINEER Work Phone: Start: 03-30-2024 CT of head without contrast MD Tanner neff Jr Work Phone: Start: 03-29-2024 Plain chest X-ray MD Tanner Mae Jr Work Phone: Start: 01-24-2024 Plain chest X-ray MD Tanner Mae Jr Work Phone: Start: 10-12-2023 Prothrombin time Historical Provider Start: 10-11-2023 Prothrombin time Historical Provider Start: 10-07-2023 BASIC METABOLIC PANEL W/ REFLEX TO MG FOR LOW K Azalea Cai ELECTRICIAN CONSTRUCTOR SUPERVISOR - BIOENGINEER Work Phone: Start: 10-07-2023 Prothrombin time Norah Brand MD Work Phone: Start: 10-06-2023 Potassium serum plasma/whole blood Feliz Brand MD Work Phone: Start: 10-06-2023 BASIC METABOLIC PANEL W/ REFLEX TO MG FOR LOW K Norah Brand MD Work Phone: Start: 10-06-2023 Prothrombin time Azalea Mera Trell ELECTRICIAN CONSTRUCTOR SUPERVISOR - BIOENGINEER Work Phone: Start: 10-06-2023 Intermittent pulse oximetry Azalea Mera Trell ELECTRICIAN CONSTRUCTOR SUPERVISOR - BIOENGINEER Work Phone: Start: 10-05-2023 Assay of troponin [...] Phone: Start: 09-29-2023 Electrophysiology study Jameel Valenzuela ELECTRICIAN CONSTRUCTOR SUPERVISOR-BIOENGINEER Work Phone: Start: 09-29-2023 Ecg routine ecg w/least 12 lds trcg only w/o i&r Yessi Miller ELECTRICIAN CONSTRUCTOR SUPERVISOR-BIOENGINEER Work Phone: Start: 09-29-2023 Basic metabolic panel calcium total Yessi Miller ELECTRICIAN CONSTRUCTOR SUPERVISOR-BIOENGINEER Work Phone: Start: 09-29-2023 EXTRA TUBES Margareth Nunez MD Work Phone: Start: 09-29-2023 LAVENDER TOP Margareth Nunez MD Work Phone: Start: 09-29-2023 LIGHT BLUE TOP Margareth Nunez MD Work Phone: Start: 09-29-2023 PST TOP Margareth Nunez MD Work Phone: Start: 09-03-2023 ELECTROPHYSIOLOGY PROCEDURE YESSI MILLER Start: 09-02-2023 CARDIAC DEVICE CHECK - IN [...] Work Phone: Start: 11-25-2020 Esophagogastroduodenoscopy Darian Itzko witz Start: 11-24-2020 End: 11-24-2020 Screening for occult blood in feces Darian Itzkowitz Start: 11-23-2020 Plain chest X-ray Darian Itzkowitz Start: 11-23-2020 SARS Antigen (LFIA) Darian Itzkowitz Start: 11-23-2020 Urine culture Darian Itzkowitz Start: 08-17-2020 Lipid 1996 panel - [...] z Start: 06-15-2020 Plain chest X-ray Darian Itzsanjanaj luis Start: 06-04-2020 Plain chest X-ray Darian Itzkoj luis Start: 11-08-2019 extraction, erupted tooth or exposed root (elevation and/or forceps removal) UNKNOWN PROVIDER Start: 08-30-2011 Total colonoscopy Diane Hoskins DO Work Phone: Adenoid excision Diane lawrence DO Work Phone: Appendectomy Diane Hoskins DO Work Phone: Catheter ablation of arrhythmogenic focus Diane Hoskins DO Work Phone: section No PCP None Cholecystectomy Diane ricks DO Work Phone: Coronary artery bypass graft Diane Hoskins DO Work Phone: History of appendectomy History of appendectomy DO Darian Melvinsanjanactnate Work Phone: History of coronary artery bypass grafting S/P CABG (coronary artery bypass graft) Diane Hoskins DO Work Phone: Hysterectomy Diane Hoskins DO Work Phone: Operative procedure on knee Diane Hoskins DO Work Phone: Percutaneous translu get coronary angioplasty Diane Hoskins DO Work Phone: Replacement of mitral valve Diane Hoskins DO Work Phone: Surgical procedure on thorax Diane Hoskins DO Work Phone: Tonsillectomy Diane Huffman alfredo DO Work Phone: Plan of Treatment Date Care Activity Detail Author Start: 2034 PNEUMOCOCCAL (3 - PPSV23 if available, else PCV20) PNEUMOCOCCAL (3 - PPSV23 if available, else PCV20) [facility] Start: 2034 PNEUMOCOCCAL (3 - PPSV23 or PCV20) PNEUMOCOCCAL (3 - PPSV23 or PCV20) [facility] Start: 2034 Pneumococcal vaccination [facility] Start: 2034 Pneumococcal Vaccine: Pediatrics (0 to 5 Years) and At-Risk Patients (6 to 64 Years) (3 - PPSV23 or PCV20) Pneumococcal Vaccine: Pediatrics (0 to 5 Years) and At-Risk Patients (6 to 64 Years) (3 - PPSV23 or PCV20) [facility] Start: 2034 Pneumococcal Vaccine: Pediatrics (0 to 5 Years) and At-Risk Patients (6 to 64 Years) (3 of 3 - PPSV23 or PCV20) Pneumococcal Vaccine: Pediatrics (0 to 5 Years) and At-Risk Patients (6 to 64 Years) (3 of 3 - PPSV23 or PCV20) [facility] Start: 08-18-2025 Adult BMI Screening Adult BMI Screening [facility] Start: 08-18-2025 Depression Screening Depression Screening [facility] Start: 08-18-2025 Tobacco Screening Tobacco Screening [facility] Start: 08-17-2025 Lipid 1996 panel - Serum or Plasma Lipid Screening [facility] Start: 08-17-2025 LIPID SCREEN LIPID SCREEN [facility] Start: 05-31-2025 Adult BMI Screening Adult BMI Screening [facility] Start: 05-31-2025 Depression Screening Depression Screening [facility] Start: 05-31-2025 Tobacco Screening Tobacco Screening [facility] Start: 03-30-2025 Echocardiography Echocardiogram [facility] Start: 11-24-2024 End: 11-24-2024 [facility] Start: 11-08-2024 End: 05-11-2025 Cardiac Device Check - In Clinic Cardiac Device Check - In Clinic Implantable Cardiac Device Routine Biventricular implantable cardioverter-defibrilla tor (ICD) in situ Paroxysmal atrial fibrillation (Multi) VT (ventricular tachycardia) (Multi) Expected: 11/08/2024 (Approximate), Expires: 05/11/2025 [facility] Work Phone: Comment on above: Expected: 11/08/2024 (Approximate), Expi res: 05/11/2025 Start: 09-29-2024 Creatinine measurement Creatinine Level [facility] Start: 09-29-2024 Potassium measurement Potassium Level [facility] Start: 08-31-2024 End: 08-31-2024 Patient encounter procedure 08/31/2024 11:00 AM EST Office Visit [facility] [address] [place] [address] Red Strickland, DO [address] [address] [place] [address] [facility] Physicians Internal Medicine - Family Medicine Start: 08-30-2024 Cholesterol [Mass/volume] in Serum or Plasma Cholesterol [facility] Start: 05-11-2024 End: 05-11-2025 Complete Pulmonary Function Test (Spirometry/DLCO/Lung Volumes) Complete Pulmonary Function Test (Spirometry/DLCO/Lung Volumes) PFT Routine Biventricular implantable cardioverter-defibrilla tor (ICD) in situ Atrial tachycardia (CMS-HCC) Ischemic cardiomyopathy Paroxysmal atrial fibrillation (Multi) VT (ventricular tachycardia) (Multi) High risk medication use Expected: 05/11/2024 (Approximate), Expires: 05/11/2025 [facility] Service Area Work Phone: Comment on above: Expected: 05/11/2024 (Approximate), Expi res: 05/11/2025 Start: 05-11-2024 End: 05-11-2025 Comprehensive metabolic 2000 panel - Serum or Plasma Comprehensive Metabolic Panel Lab Routine High risk medication use Expected: 05/11/2024 (Approximate), Expires: 05/11/2025 [facility] Work Phone: Comment on above: Expected: 05/11/2024 (Approximate), Expi res: 05/11/2025 Start: 05-11-2024 End: 05-11-2025 Thyrotropin [Units/volume] in Serum or Plasma Thyroid Stimulating Hormone Lab Routine High risk medication use Expected: 05/11/2024 (Approximate), Expires: 05/11/2025 [facility] Work Phone: Comment on above: Expected: 05/11/2024 (Approximate), Expi res: 05/11/2025 Start: 04-30-2024 COVID-19 Vaccine ( season) COVID-19 Vaccine () [facility] Start: 04-30-2024 COVID-19 Vaccine ( season) COVID-19 Vaccine ( season) [facility] Start: 04-30-2024 Influenza vaccination Influenza Vaccine (#1) [facility] Start: 04-13-2024 [facility] Start: 04-12-2024 [facility] Start: 04-11-2024 [facility] Start: 04-10-2024 [facility] Start: 04-09-2024 [facility] Start: 04-08-2024 [facility] Start: 04-07-2024 [facility] Start: 04-06-2024 [facility] Start: 04-05-2024 [facility] Start: 04-04-2024 [facility] Start: 04-03-2024 [facility] Start: 04-02-2024 [facility] Start: 04-01-2024 [facility] Start: 03-31-2024 [facility] Start: 03-30-2024 Bacteria identified in Urine by Culture [facility] Start: 03-30-2024 End: 03-30-2024 [facility] Start: 03-30-2024 Referral to Pharmacy Clinical Specialist [facility] Start: 03-30-2024 Referral to manager lvn [facility] Start: 03-30-2024 Hospital admission [facility] Start: 03-29-2024 Plain chest X-ray XR chest 2V* [facility] Start: 03-29-2024 XR Chest 2 Views [facility] Start: 03-29-2024 End: 03-29-2024 Patient encounter procedure 03/29/2024 8:30 AM EDT Office Visit [facility] [address] [facility] [address] [place] [phone] Jameel Valenzuela E, ELECTRICIAN CONSTRUCTOR SUPERVISOR-BIOENGINEER [address] [facility] [address] [place] [address] [facility] Start: 03-19-2024 DIABETES SCREEN DIABETES SCREEN [facility] Start: 03-19-2024 Diabetes Screening Diabetes Screening [facility] Start: 02-22-2024 Patient referral [facility] Work Phone: Start: 01-24-2024 Plain chest X-ray XR chest 1V portable [facility] Start: 01-24-2024 XR Chest Single view [facility] Start: 10-22-2023 End: 10-22-2023 Patient encounter procedure 10/22/2023 9:30 AM EST Office Visit [facility] [address] [place] [phone] Norah Brand MD [address] [place], [place] [id number] new pat/ hosp f/u [facility] Comment on above: new pat/ hosp f/u Start: 10-18-2023 End: 10-18-2023 Patient encounter procedure 10/18/2023 2:50 PM EST Appointment [facility] [address] [place] [phone] INR- new Lovenox (CPA 10/06/24) [facility] Comment on above: INR- new Lovenox (CPA 10/06/24) Start: 10-13-2023 End: 10-06-2024 Basic metabolic 2000 panel - Serum or Plasma Basic Metabolic Panel Lab Routine Hypokalemia Expected: 10/13/2023, Expires: 10/06/2024 [facility] Comment on above: Expected: 10/13/2023, Expires: Start: 10-13-2023 End: 10-06-2024 CBC panel - Blood by Automated count CBC Lab Routine Dizziness Expected: 10/13/2023, Expires: 10/06/2024 [facility] Comment on above: Expected: 10/13/2023, Expires: Start: 10-13-2023 End: 10-13-2023 Patient encounter procedure 10/13/2023 11:00 AM EST Office Visit [place] [id number] [facility] [address], [address] [place] [address] RaydawsonAjay DO [address] [facility] [address] [place] [address] Robles [facility] Comment on above: per Dr. Robles Start: 10-12-2023 End: 10-12-2023 Patient encounter procedure 10/12/2023 3:50 PM EST Appointment [facility]ication [facility] [address] [place] [address] INR- new Lovenox (CPA 10/06/24) [facility] Comment on above: INR- new Lovenox (CPA 10/06/24) Start: 10-08-2023 End: 10-08-2023 Patient encounter procedure 10/08/2023 10:30 AM EST Appointment [facility]ication [facility] [address] [place] [id number] INR- new Lovenox (CPA 10/06/24) [facility] Comment on above: INR- new Lovenox (CPA 10/06/24) Start: 10-06-2023 End: 10-06-2023 Clinical Support 10/06/2023 8:30 AM EST Clinical Support [facility] [address] [facility] [address] [place] [address] [facility] Start: 09-29-2023 End: 09-29-2023 Admission to same day surgery center 09/29/2023 2:00 PM EST - 09/29/2023 4:00 PM EST [facility] [address] [place] [address] Margareth Nunez MD [address] [place] [address] ICD BIV Generator Change Out [63928 (CPT )] [facility] Comment on above: ICD BIV Generator Change Out [60659 (CPT )] Start: 09-29-2023 Subsequent hospital visit by physician 09/29/2023 2:00 PM EST Hospital [facility] [address] [place] [address] Margareth Nunez MD [address] [facility] [address] [place] [address] Biventricular implantable cardioverter-defibrilla tor (ICD) in situ; Elective replacement of implantable cardioverter-defibrilla tor (ICD) battery required [facility] Comment on above: Biventricular implantable cardioverter-d efibrillator (ICD) in situ; Elective replacement of implantable cardioverter-defibrillator (ICD) battery required Start: 09-09-2023 End: 12-09-2023 Basic metabolic 2000 panel - Serum or Plasma BASIC METABOLIC PNL Lab Routine Persistent atrial fibrillation (HCC) Expected: 09/09/2023 (Approximate), Expires: 12/09/2023 [facility] Work Phone: Comment on above: Expected: 09/09/2023 (Approximate), Expi res: 12/09/2023 Start: 09-09-2023 End: 12-09-2023 CBC panel - Blood by Automated count CBC Lab Routine Persistent atrial fibrillation (HCC) Expected: 09/09/2023 (Approximate), Expires: 12/09/2023 [facility] Work Phone: Comment on above: Expected: 09/09/2023 (Approximate), Expi res: 12/09/2023 Start: 09-09-2023 End: 12-09-2023 CONFIRM BLOOD TYPE CONFIRM BLOOD TYPE Blood Bank Routine Persistent atrial fibrillation (HCC) Expected: 09/09/2023 (Approximate), Expires: 12/09/2023 [facility] Work Phone: Comment on above: Expected: 09/09/2023 (Approximate), Expi res: 12/09/2023 Start: 09-09-2023 End: 12-09-2023 TYPE AND SCREEN,30 DAY TYPE AND SCREEN,30 DAY Blood Bank Routine Persistent atrial fibrillation (HCC) Expected: 09/09/2023 (Approximate), Expires: 12/09/2023 [facility] Work Phone: Comment on above: Expected: 09/09/2023 (Approximate), Expi res: 12/09/2023 Start: 08-30-2023 Annual Wellness Visit (Medicare Advantage) Annual Wellness Visit (Medicare Advantage) [facility] Start: 04-30-2023 Covid-19 Vaccine () Covid-19 Vaccine () [facility] Start: 04-30-2023 Influenza vaccination [facility] Start: 03-30-2023 Influenza vaccination Flu vaccine (#1) [facility] Start: 03-15-2023 FUV, Provider: Margareth Nunez, Status: Pen, Time: 1:40 PM FUV, Provider: Margareth Nunez, Status: Pen, Time: 1:40 PM -[facility]-[address] DO Work Phone: Start: 11-14-2022 Echocardiography Echocardiogram [facility] Start: 10-27-2022 FUV, Provider: Margareth Nunez, Status: Pen, Time: 3:00 PM FUV, Provider: Margareth Nunez, Status: Pen, Time: 3:00 PM -[facility]-[address] DO Work Phone: Start: 05-30-2022 Influenza vaccination Influenza Vaccine (#1) [facility] Start: 05-25-2022 FUV, Provider: Inna Jesus, Status: Pen, Time: 1:30 PM FUV, Provider: Inna Jesus, Status: Pen, Time: 1:30 PM -[facility] DO Work Phone: Start: 05-20-2022 BP CONTROLLED (<130/80) BP CONTROLLED (<130/80) [facility] Start: 04-30-2022 Influenza vaccination [facility] Start: 04-24-2022 FUV, Provider: Margareth Nunez, Status: Pen, Time: 1:20 PM FUV, Provider: Margareth Nunez, Status: Pen, Time: 1:20 PM [facility] [place] Work Phone: Start: 04-15-2022 FUV, Provider: Inna Jesus, Status: Pen, Time: 4:00 PM [facility]UV, Provider: Inna Jesus, Status: Pen, Time: 4:00 PM [facility]-[address] DO Work Phone: Start: 03-25-2022 [facility]UV, Provider: Inna Jesus, Status: Pen, Time: 8:00 AM [facility]UV, Provider: Inna Jesus, Status: Pen, Time: 8:00 AM -[facility]-Nick [address] DO Work Phone: Start: 03-12-2022 Diabetes mellitus screening Diabetes Screening [facility] Start: 02-23-2022 [facility]UV, Provider: Inna Jesus, Status: Pen, Time: 8:00 AM [facility]UV, Provider: Inna Jesus, Status: Pen, Time: 8:00 AM [facility] [address] DO Work Phone: Start: 01-21-2022 [facility], Provider: Margareth Nunez, Status: Pen, Time: 9:00 AM [facility], Provider: Margareth Nunez, Status: Pen, Time: 9:00 AM [facility] [address] DO Work Phone: Start: 01-20-2022 [facility], Provider: Terry Bhardwaj, Status: Pen, Time: 8:00 AM [facility], Provider: Terry Bhardwaj, Status: Pen, Time: 8:00 AM [facility] [address] DO Work Phone: Start: 12-31-2021 EP ABLAT, Provider: [facility] SENIOR [facility] C DEVELOPER 5,[id number], Status: Pen, Time: 11:00 AM EP ABLAT, Provider: [facility] SENIOR [facility] C DEVELOPER 5,[id number], Status: Pen, Time: 11:00 AM -[facility]-[address] DO Work Phone: Start: 12-31-2021 [facility], Provider: Terry Bhardwaj, Status: Pen, Time: 11:00 AM [facility], Provider: Terry Bhardwaj, Status: Pen, Time: 11:00 AM [facility] [address] DO Work Phone: Start: 12-31-2021 [facility], Provider: Margareth Nunez, Status: Pen, Time: 8:00 AM [facility], Provider: Margraeth Nunez, Status: Pen, Time: 8:00 AM [facility] [address] DO Work Phone: Start: 12-31-2021 JOVITA, Provider: [facility] S[facility] C DEVELOPER 1,[id number], Status: Pen, Time: 8:00 AM JOVITA, Provider: [facility] S[facility]IOR [facility] C DEVELOPER 1,[id number], Status: Pen, Time: 8:00 AM [facility]-[address] DO Work Phone: Start: 11-19-2021 FUV, Provider: Diane Hoskins, Status: Pen, Time: 9:20 AM [facility]UV, Provider: Diane Hoskins, Status: Pen, Time: 9:20 AM [facility]-Nick [address] DO Work Phone: Start: 10-29-2021 FUV, Provider: Inna Jesus, Status: Pen, Time: 2:30 PM [facility]UV, Provider: Inna Jesus, Status: Pen, Time: 2:30 PM [facility] [address] DO Work Phone: Start: 10-13-2021 Bacteria identified in Blood by Culture Blood Culture [facility] Start: 10-13-2021 Bacteria identified in Urine by Culture Urine Culture [facility] Start: 08-17-2021 Hepatitis B surface antibody level LDL CHOLESTEROL [facility] Start: 05-11-2021 COVID-19 VACCINE (3 - Booster for Pfizer series) COVID-19 VACCINE (3 - Booster for Pfizer series) [facility] Start: 02-03-2021 COVID-19 VACCINE (3 - Booster for Pfizer series) COVID-19 VACCINE (3 - Booster for Pfizer series) [facility] Start: 02-03-2021 COVID-19 VACCINE (3 - Pfizer series) COVID-19 VACCINE (3 - Pfizer series) [facility] Start: 2019 Administration of varicella zoster vaccine Zoster (Shingles) Vaccine (1 of 2) [facility] Start: 2019 Measurement of occult blood in single stool specimen FIT [facility] Start: 2019 Screening for malignant neoplasm of breast Breast cancer screen [facility] Start: 2019 Screening for malignant neoplasm of colon CRC Screening [facility] Start: 2019 Shingles (RZV) Vaccine (1 of 2) Shingles (RZV) Vaccine (1 of 2) [facility] Start: 2019 Shingles vaccine (1 of 2) Shingles vaccine (1 of 2) [facility] Start: 2019 SHINGRIX VACCINE (1 of 2) SHINGRIX VACCINE (1 of 2) [facility] Start: 2019 Zoster Vaccines (1 of 2) Zoster Vaccines (1 of 2) [facility] Start: 2014 COLOGUARD (FIT-DNA) COLOGUARD (FIT-DNA) [facility] Start: 2014 Colonoscopy COLONOSCOPY [facility] Start: 2014 COLORECTAL CANCER SCREENING COLORECTAL CANCER SCREENING [facility] Start: [address] COLONOGRAPHY [facility] Start: 2014 FECAL OCCULT BLOOD FECAL OCCULT BLOOD [facility] Start: 2014 Screening for malignant neoplasm of colon [facility] Start: 2014 SIGMOIDOSCOPY SIGMOIDOSCOPY [facility] Start: 02-06-2013 DTaP,Tdap and Td Vaccines (1 - Tdap) DTaP,Tdap and Td Vaccines (1 - Tdap) [facility] Start: 02-06-2013 DTaP/Tdap/Td vaccine (1 - Tdap) DTaP/Tdap/Td vaccine (1 - Tdap) [facility] Start: 02-06-2013 DTaP/Tdap/Td Vaccines (1 - Tdap) DTaP/Tdap/Td Vaccines (1 - Tdap) [facility] Start: 02-06-2013 Urine microalbumin profile [facility] Start: 2009 Mammography [facility] Start: 2009 [facility] Start: 1999 HPV TESTING HPV TESTING [facility] Start: 1999 Screening for malignant neoplasm of cervix [facility] Start: 1990 PAP TESTING PAP TESTING [facility] Start: 1990 Screening for malignant neoplasm of cervix [facility] Start: 1988 DTaP/Tdap/Td vaccine (1 - Tdap) DTaP/Tdap/Td vaccine (1 - Tdap) [facility] Start: 1988 Hepatitis B Vaccines (1 of 3 - 19+ 3-dose series) Hepatitis B Vaccines (1 of 3 - 19+ 3-dose series) [facility] Start: 1987 Adult BMI Follow Up Plan Adult BMI Follow Up Plan [facility] Start: 1987 ANNUAL PCP TEAM CHRONIC DISEASE VISIT ANNUAL PCP TEAM CHRONIC DISEASE VISIT [facility] Start: 1987 BP CONTROLLED (<130/80) BP CONTROLLED (<130/80) [facility] Start: 1987 HEPATITIS C SCREENING HEPATITIS C SCREENING [facility] Start: 1987 Hepatitis C screening [facility] Start: 1987 HIV SCREENING HIV SCREENING [facility] Start: 1987 SPIROMETRY SPIROMETRY [facility] Start: 1987 Tetanus + diphtheria + acellular pertussis vaccine (product) Tdap Booster [facility] Start: 1984 HIV screening [facility] Start: 1981 Depression Screen Depression Screen [facility] Start: 1979 Lipid panel Lipids [facility] Start: 1970 MMR Vaccines (1 of 1 - Standard series) MMR Vaccines (1 of 1 - Standard series) [facility] Start: 01-09-1970 COVID-19 Vaccine (#1) COVID-19 Vaccine (#1) [facility] Start: 1969 Creatinine measurement Creatinine Level [facility] Start: 1969 Ejection Fraction Ejection Fraction [facility] Start: 1969 HEPATITIS B (1 of 3 - 3-dose series) HEPATITIS B (1 of 3 - 3-dose series) [facility] Start: 1969 Hepatitis B Vaccine (1 of 3 - 3-dose series) Hepatitis B Vaccine (1 of 3 - 3-dose series) [facility] Start: 1969 Hepatitis B Vaccines (1 of 3 - 3-dose series) Hepatitis B Vaccines (1 of 3 - 3-dose series) [facility] Start: 1969 HIV screening HIV Screening [facility] Start: 1969 Lipid panel Lipid Panel [facility] Start: 1969 Medicare Annual Wellness Visit Medicare Annual Wellness Visit (AWV) [facility] Start: 1969 Potassium measurement Potassium Level [facility] Start: 1969 Screening for malignant neoplasm of [facility] Start: 1969 Thyroid stimulating hormone measurement TSH Level [facility] Anion gap measurement [facility] aPTT in Platelet poo r plasma by Coagulation assay [facility] Bacteria identified in Blood by Culture [facility] Bacteria identified in Urine by Culture [facility] End: 10-08-2023 Basic Metabolic Panel w/ Reflex to MG Basic Metabolic Panel w/ Reflex to MG Lab Routine Daily for 3 Days starting 10/06/2023 until 10/08/2023, 1 completed [facility] Comment on above: Daily for 3 Days starting 10/06/2023 unt il 10/08/2023, 1 completed Basophil count [facility] Basophil percent differential count [facility] Basophils [#/volume] in Blood by Automated count [facility] Basophils/100 leukoc ytes in Blood by Automated count [facility] Calcium [Mass/volume ] in Serum or Plasma [facility] Calculated LDL cholesterol level [facility] Carbon dioxide, tota l [Moles/volume] in Serum or Plasma [facility] Cardiac Device Check - In Clinic Cardiac Device Check - In Clinic Implantable Cardiac Device Routine ICD (implantable cardioverter-defibrilla tor) battery depletion 09/02/2023 1:53 PM EST [facility] Service Area Work Phone: Cardiac Device Check - In Clinic Cardiac Device Check - In Clinic Implantable Cardiac Device Routine Biventricular implantable cardioverter-defibrilla tor (ICD) in situ 05/11/2024 9:40 AM EDT [facility] Service Area Work Phone: End: 10-08-2023 CBC W Auto Differential panel - Blood CBC with auto differential Lab Routine Daily for 3 Days starting 10/06/2023 until 10/08/2023, 2 completed [facility] Comment on above: Daily for 3 Days starting 10/06/2023 unt il 10/08/2023, 2 completed Chloride [Moles/volu me] in Serum or Plasma [facility] Cholesterol.total/Ch olest christine in HDL [Mass Ratio] in Serum or Plasma [facility] End: 10-06-2023 Clostridium Difficile Toxin/Antigen Clostridium Difficile Toxin/Antigen Microbiology Routine 36 Hours Expiring for 36 Hours starting 10/06/2023 until 10/06/2023 [facility] Comment on above: 36 Hours Expiring for 36 Hours starting 10/06/2023 until 10/06/2023 Creatinine and Glome rular filtration rate.predicted panel - Serum, Plasma or Blood [facility] ECG 12 lead (Clinic Performed) ECG 12 lead (Clinic Performed) ECG Routine Biventricular implantable cardioverter-defibrilla tor (ICD) in situ 05/11/2024 10:30 AM EDT [facility] Work Phone: ECG 12 lead STAT ECG 12 lead STA T ECG STAT 09/29/2023 7:03 AM EST [facility] Service Area Work Phone: Eosinophil percent differential count [facility] Eosinophils [#/volum e] in Blood [facility] Eosinophils/100 leukocytes in Blood by Automated count [facility] Erythrocyte distribu tion width [Ratio] by Automated count [facility] Erythrocyte mean corpuscular volume determination [facility] Erythrocytes [#/volu me] in Blood [facility] Erythrocytes [#/volu me] in Blood [facility] Glucose [Mass/volume ] in Serum or Plasma [facility] Hematocrit [Volume Fraction] of Blood [facility] Hematocrit [Volume Fraction] of Blood [facility] Hemoglobin [Mass/vol ume] in Blood [facility] Hemoglobin [Mass/vol ume] in Blood [facility] Hemoglobin distribut ion, width determination [facility] ICD BIV GENERATOR CH GERTRUDIS OUT ICD BIV GENERATOR CHANGE OUT Biventricular implantable cardioverter-defibrilla tor (ICD) in situ Elective replacement of implantable cardioverter-defibrilla tor (ICD) battery required [facility] Work Phone: INR in Platelet poor plasma by Coagulation assay [facility] Leukocytes [#/volume ] corrected for nucleated erythrocytes in Blood by Automated coun [facility] Leukocytes [#/volume ] in Blood [facility] Leukocytes [#/volume ] in Blood [facility] Lymphocyte count [facility] Lymphocyte percent differential count [facility] Lymphocytes [#/volum e] in Blood by Automated count [facility] Lymphocytes/100 leukocytes in Blood by Automated count [facility] Magnesium measurement [facility] MCH [Entitic mass] b y Automated count [facility] MCHC [Mass/volume] b y Automated count [facility] MCV [Entitic volume] by Automated count [facility] Mean corpuscular hemoglobin concentration determination [facility] Mean corpuscular hemoglobin determination [facility] Measurement of renal function [facility] Monocyte count [facility] Monocyte percent differential count [facility] Monocytes [#/volume] in Blood by Automated count [facility] Monocytes/100 leukoc ytes in Blood by Automated count [facility] Neutrophil count [facility] Neutrophil percent differential count [facility] Neutrophils [#/volum e] in Blood by Automated count [facility] Neutrophils/100 leukocytes in Blood by Automated count [facility] Nucleated erythrocyt es [Presence] in Blood by Automated count [facility] Oxygen therapy [Mini mum Data Set] Initiate Oxygen Therapy Protocol Respiratory Care Routine Daily until discontinued starting 10/06/2023 [facility] Comment on above: Daily until discontinued starting 2023 Patient Education [facility] Patient referral [facility] Platelet mean volume [Entitic volume] in Blood by Automated count [facility] Platelet mean volume determination [facility] Platelets [#/volume] in Blood [facility] Platelets [#/volume] in Blood [facility] Potassium [Moles/vol ume] in Serum or Plasma [facility] End: 10-20-2023 Protime-INR Protime-INR Lab Routine Daily for 2 Weeks starting 10/07/2023 until 10/20/2023, [address] [facility] Comment on above: Daily for 2 Weeks starting 10/07/2023 un til 10/20/2023, 1 completed End: 09-07-2024 Radiologic exam chest 2 views XR CHEST 2V FRONTAL/LAT Radiology Routine Persistent atrial fibrillation (HCC) 1 Occurrences starting 08/09/2023 until 09/07/2024 [facility] Work Phone: Comment on above: 1 Occurrences starting 08/09/2023 until 09/07/2024 Sodium [Moles/volume ] in Serum or Plasma [facility] End: 10-06-2023 SPECIMEN REJECTION [facility] Comment on above: Once for 1 Occurrences starting 10/06/19 24 until 10/06/2023 Urea nitrogen [Mass/volume] in Serum or Plasma [facility] VLDL cholesterol measurement [facility] XR Humerus - right Views [facility] XR Shoulder - right Views [facility] Immunizations Immunization Date Immunization Notes Care Provider Sherif bailey 05-31-2024 influenza, seasonal, injectable, preservative free Red Strickland DO Work Phone: [facility] 05-31-2024 Immunization, In Clinic,; Translations: [Drug or medicament (substance)] Redjames Johnsonjose roberto DO Work Phone: [facility] 12-09-2020 Pf[employer]ive[employer] COVID-19 Vacc 30 MCG/0.3ML Intramuscular Suspension Diane Hoskisn DO Work Phone: [facility] 11-18-2020 COVID-19 vaccine, ag e 12+ yr (PFIZER-BIONTECH - PURPLE TOP) David Osei MD Work Phone: [facility] 06-09-2020 pneumococcal polysaccharide vaccine, 23 valent David Osei MD Work Phone: [facility] 06-07-2020 influenza, seasonal, injectable David Osei MD Work Phone: [facility] 06-07-2020 influenza virus vaccine, unspecified formulation David Osei MD Work Phone: [facility] 06-06-2020 influenza, injectabl e, quadrivalent, preservative free Darian Itzkowitz [facility] 06-06-2020 influenza virus vaccine, unspecified formulation Anju Cuevas PAUL Work Phone: [facility] 08-31-2019 Influenza, injectabl e, Madin Denise Canine Kidney, preservative free, quadrivalent Darian Itzkowitz [facility] 08-30-2019 influenza virus vaccine, unspecified formulation Diane Hoskins DO Work Phone: [facility] [employer] DO Work Phone: 06-29-2018 influenza, injectabl e, quadrivalent, preservative free David Osei MD Work Phone: [facility] 06-27-2018 influenza virus vaccine, unspecified formulation Diane Hoskins DO Work Phone: [facility] Work Phone: 06-17-2018 influenza, injectabl e, quadrivalent, preservative free Jeane Juan Fbarrington Other [facility] 05-10-2017 influenza, seasonal, injectable, preservative free David Osei MD Work Phone: [facility] 05-03-2017 influenza, injectabl e, quadrivalent, preservative free David Osei MD Work Phone: [facility] 04-30-2017 influenza virus vaccine, unspecified formulation Diane Hoskins DO [facility]: [facility] Work Phone: 05-08-2016 pneumococcal conjuga te vaccine, 13 valent David Osei MD Work Phone: [facility] 04-30-2016 influenza virus vaccine, unspecified formulation Diane [facility]kins DO [facility] Work Phone: 04-30-2016 pneumococcal conjuga te vaccine, 7 valent Diane Hoskins DO Work Phone: [facility] [facility] DO Work Phone: 04-24-2016 influenza, seasonal, injectable, preservative free David Osei MD Work Phone: [facility] 05-30-2015 influenza virus vaccine, unspecified formulation Diane Hoskins DO Work Phone: [facility] 250 DO Work Phone: 09-18-2013 influenza virus vaccine, unspecified formulation Diane Hoskins DO [facility] Work Phone: 02-05-2013 TD(adult) unspecifie d formulation David Osei MD Work Phone: [facility] 02-05-2013 Td, unspecified formulation Marcelo Menawiani [facility] Work Phone: [facility] 08-30-2011 pneumococcal polysaccharide vaccine, 23 valent Diane Hoskins DO [facility] Work Phone: influenza virus vaccine, unspecified formulation Diane Hoskins DO [facility] Work Phone: Comment on above: 2008 2009 2010 2011 2012 pneumococcal polysaccharide vaccine, 23 valent Diane Hoskins DO [facility] Work Phone: Comment on above: 2008 Payers Date Payer Category Payer Self-pay [id number] 2023 Private Health Insurance [id number] 2020 Medicare [facility] MEDICARE [facility] DUAL COMPLETE HMO SNP [id number] 2020-Present [phone] [address] [place] [address] Medicare [id number] [id number] 2020 Medicare [id number] 1.13.159. [id number] 2020 Medicare HMO [employer] MEDICARE [id number] 2020 Medicaid MEDICAID [facility] MEDICAID [id number] 2020-Present [phone] [address] [place] [address] Medicaid [id number] [id number] 2017 Private Health Insurance [id number] 2017 Unknown [id number] 2003 Medicaid [id number]. 1.13.159. 2.7.3.838786.315 1969 Unknown [id number] 2.16.840.1.760607.3.579. 2.355 1969 Unknown [id number] 2.16.840.1.218310.3.579. 2.355 1969 Unknown [id number] 2.16.840.1.925300.3.579. 2.355 1969 Unknown [id number] 2.16.840.1.331400.3.579. 2.355 1969 Unknown [id number] 2.16.840.1.818903.3.579. 2.355 1969 Unknown [id number] 2.16.840.1.335278.3.579. 2.355 1969 Unknown [id number] 2.16.840.1.807799.3.579. 2.732 1969 Unknown [id number] 2.16.840.1.950829.3.579. 2.593 1969 Unknown [id number] 2.16.840.1.268400.3.579. 2.593 1969 Unknown [id number] 2.16.840.1.021451.3.579. 2.593 1969 Unknown [id number] 2.16.840.1.289483.3.579. 2.593 1969 Unknown [id number] 2.16.840.1.681684.3.579. 2.593 1969 Unknown [id number] 2.16.840.1.138796.3.579. 2.593 1969 Unknown [id number] 2.16.840.1.971433.3.579. 2.593 1969 Unknown [id number] 2.16.840.1.384962.3.579. 2.593 1969 Unknown [id number] 2.16.840.1.063906.3.579. 2.593 1969 Unknown [id number] 2.16.840.1.147690.3.579. 2.593 1969 Unknown [id number] 2.16.840.1.620344.3.579. 2.593 1969 Unknown [id number] 2.16.840.1.705485.3.579. 2.593 1969 Unknown [id number] 2.16.840.1.274470.3.579. 2.593 1969 Unknown [id number] 2.16.840.1.133618.3.579. 2.593 1969 Unknown [id number] 2.16.840.1.129416.3.579. 2.593 1969 Unknown [id number] 2.16.840.1.342544.3.579. 2.593 1969 Unknown [id number] 2.16.840.1.071094.3.579. 2.593 1969 Unknown [id number] 2.16.840.1.395359.3.579. 2.356 1969 Unknown [id number] 2.16.840.1.582895.3.579. 2.727 1969 Unknown [id number] 2.16.840.1.875422.3.579. 2.727 1969 Unknown [id number] 2.16.840.1.545887.3.579. 2.727 1969 Unknown [id number] 2.16.840.1.012422.3.579. 2.727 1969 Unknown [id number] 2.16.840.1.963645.3.579. 2.176 1969 Unknown [id number] 2.16.840.1.584564.3.579. 2.176 1969 Unknown [id number] 2.16.840.1.443360.3.579. 2.176 1969 Unknown [id number] 2.16.840.1.530510.3.579. 2.175 1969 Unknown [id number] 2.16.840.1.350996.3.579. 2.1286 -13-1969 Unknown [id number] 10.15.830.1.949728.3.579. 2.1285 1969 Unknown [id number] 10.15.830.1.928684.3.579. 2.1285 1969 Unknown [id number] .1.330241.3.579. 2.1285 1969 Unknown [id number] .1.622379.3.579. 2.1245 1969 Unknown [id number] 10.15.830.1.815844.3.579. 2.1245 1969 Unknown [id number] .1.545761.3.579. 2.1245 1969 Unknown [id number] .1.477586.3.579. 2.1245 1969 Unknown [id number] .1.240807.3.579. 2.1244 1959 Medicaid [id number] Medicare [id number] Medicare [id number] Medicare Medicare [id number] Private Health Insurance [employer] [facility] PFFS [id number] Private Health Insurance [facility] [id number] Unknown [id number] Unknown Unknown [id number] 10.15.830.1.078981.3.579. 2.531 Unknown [id number] 10.15.830.1.536487.3.579. 2.531 Unknown [id number] 10.15.830.1.419797.3.579. 2.531 Unknown [id number] .1.360809.3.579. 2.531 Social History Date Type Detail Facility Start: 08-16-2020 End: 05-31-2024 Tobacco smoking status NHIS Ex-smoker (finding) [facility] Start: 1970 Sex Assigned At Female F [facility] Start: 05-20-2021 End: 05-31-2024 No illicit drug use No illicit drug use [facility] Work Phone: Comment on above: QUIT 02/2018; QUIT 02/2018 had res tarted then requit 08/2021; Start: 05-20-2021 End: 05-11-2024 Tobacco smoking status SCIS Smokes tobacco daily [facility] Start: 08-30-1986 End: 09-01-2022 History of tobacco use Cigarette Smoker [facility] Start: 05-20-2021 End: 05-31-2024 Tobacco use and exposure Smokeless tobacco non-user [facility] Start: 05-20-2021 End: 05-11-2024 Alcohol intake Ex-drinker (finding) [facility] Start: 06-17-2020 History SDOH Financial 5 [facility] Start: 06-17-2020 History SDOH Food Worry 1 [facility] Start: 06-17-2020 History SDOH Transport Med 2 [facility] Start: 02-24-2012 Tobacco Comment 5 cigarettes a day C [facility] Start: 1970 Sex Assigned At Not on file C [facility] Start: 12-28-2021 End: 01-07-2022 Exposure to SARS-CoV-2 (event) Unable to assess [facility] Start: 05-20-2021 End: 05-31-2024 Sex Assigned At [facility] Work Phone: Start: 08-30-1986 End: 11-11-2023 Tobacco smoking status NHIS Smoker (finding) [facility] Start: 10-13-2021 Alcohol intake Current non-dr linker up of alcohol (finding) [facility] How hard is it for you to pay for the very basics like food, housing, medical care, and heating Not hard at all [facility] Work Phone: (I/We) worried whether (my/our) food would run out before (I/we) got money to buy more. Never true [facility] Work Phone: Start: 09-02-2023 End: 10-08-2023 Alcohol intake Current drinker of alcohol (finding) [facility] Work Phone: Start: 08-31-2023 Alcohol Comment rare [facility] Work Phone: Start: 08-23-2023 End: 05-11-2024 Exposure to SARS-CoV-2 (event) Not sure [facility] Has the electric, gas, oil, or water company threatened to shut off services in your home in past 12Mo No [employer] [facility] [employer] Start: 02-05-2013 Alcohol Comment special occasi ons couple drinks [facility] Start: 05-31-2024 End: 08-18-2024 Alcoholic beverage intake Lifetime non-drinker (finding) [facility] Are you now , , , , never or living with a partner? [facility] How often to you hav e a drink containing alcohol? Never [facility] Do you feel stress - tense, restless, nervous, or anxious, or unable to sleep at night because your mind is troubled all the time - these days [OSQ] Rather much [facility] Start: 09-29-2017 Sex Female (finding) [facility] NEGATED: Highlighted row [facility] Medical Equipment Procedure Code Equipment Code Equipment Origin al Text Equipment Identifier Dates [place] Ptfe 1.2 Cm X 10 Cm - [id number] Start: 07-13-2012 Comment on above: Description: pledgets for suture line re inforcement Valve 27mm Therm afix Pericardi - [id number] Start: 07-13-2012 Comment on above: Description: Mitral valve replacement wi th 27 mm Cornell Lang tissue valve Valve Orquidea 3 Commander Lang 26mm Aortic Transcatheter Ultra Low - [id number] Start: 03-17-2021 Defibrillator, Correspondent-D, Claria Mri, Surescan, Df1 - [id number] - [id number] Start: 09-29-2023 Goals Date Patient Goal Desired Activity /State Functional Status Date Assessment Result Facility 03-30-2024 Functional status Patient at Baseline [facility] Work Phone: 11-25-2020 Functional status Patient at Baseline [facility] 11-23-2020 Functional status Patient at Baseline [facility] 08-17-2020 Functional status Patient at Baseline [facility] 08-17-2020 Functional status Disability Sta tus Patient at Baseline [facility] 06-15-2020 Functional status Patient at Baseline [facility] 06-05-2020 Functional status Patient at Baseline [facility] Mental Status Date Assessment Result Facility 03-30-2024 Cognitive function Cognitive Sta tus Patient at Baseline [facility] Work Phone: 11-25-2020 Cognitive function Cognitive Sta tus Patient at Baseline [facility] 11-23-2020 Cognitive function Cognitive Sta tus Patient at Baseline [facility] 08-17-2020 Cognitive function Cognitive Sta tus Patient at Baseline [facility] 06-15-2020 Cognitive function Cognitive Sta tus Patient at Baseline [facility] 06-05-2020 Cognitive function Cognitive Sta tus Patient at Baseline [facility] Clinical Notes 06-15-2020 to 09-28-2024 Telephone Encounter - Red Strickland DO - 09/28/2024 8:02 AM ESTTelephone Encounter - Red Strickland DO - 09/28/2024 8:02 AM ESTTelephone Encounter - Shayy Elias CMA - 09/07/2024 4:35 PM EST Note Date & Type Note Facility 09-28-2024 Miscellaneous Notes Prescription sent in. She no showed her last appointment. She needs to reschedule documented in this encounter [facility] 09-28-2024 Telephone encounter Note Prescription sent in. She no showed her last appointment. She needs to reschedule [facility] 09-07-2024 Miscellaneous Notes Patient called and stated she is on 3mg of the requip and 2mg was called into pharmacy. Can you please correct this and send new dosage into pharmacy. I sent in 2 mg for 30 days with 5 refills when she 1st came here as a new patient on May 31 and have not sent anything in since so I am not sure what it has been going on with that prescription for 3 months. I did not send in anything new. I see the hospital had her on 0.25 mg 3 times a day. Maybe they sent in a prescription that is confusing. She was supposed to have an appointment the other day but did not show up. Check with the pharmacy to see what she has been getting please Spoke to the pharmacy and Essence the pharmacist and she stated it is 2mg for the requip. documented in this encounter [facility] 09-07-2024 Telephone encounter Note Patient called and stated she is on 3mg of the requip and 2mg was called into pharmacy. Can you please correct this and send new dosage into pharmacy. [facility] 09-07-2024 Telephone encounter Note I sent in 2 mg for 30 days with 5 refills when she 1st came here as a new patient on May 31 and have not sent anything in since so I am not sure what it has been going on with that prescription for 3 months. I did not send in anything new. I see the hospital had her on 0.25 mg 3 times a day. Maybe they sent in a prescription that is confusing. She was supposed to have an appointment the other day but did not show up. Check with the pharmacy to see what she has been getting please [facility] 09-07-2024 Telephone encounter Note Spoke to the pharmacy and Essence the pharmacist and she stated it is 2mg for the requip. [facility] 08-18-2024 Miscellaneous Notes ----- Message from MANOHAR Brown sent at 08/18/2024 4:46 PM EST ----- Contract: [id number] Patient calling in stating that there are two sets of directions on the medication Lunestia provider sent in to pharmacy [facility] in [place] for her and she needs to have it verified so the pharmacy will fill it documented in this encounter [facility] 08-18-2024 Telephone encounter Note ----- Message from MANOHAR Brown sent at 08/18/2024 4:46 PM EST ----- Contract: 198 Patient calling in stating that there are two sets of directions on the medication Lunestia provider sent in to pharmacy [facility] in [place] for her and she needs to have it verified so the pharmacy will fill it [facility] 08-18-2024 History of Presen t illness Narrative Subjective Patient ID: Essence Vincent is a 54 y.o. female. The patient is here today for discharge follow up from hospital. Transition of Care Med Rec completed? Yes Discharged medications: Medications have been reviewed and reconciled with the most recent facility discharge document. Essence presents today for hospital follow-up. She was admitted to the hospital after she heard an alarm for her pacemaker defibrillator. Apparently it was a false alarm and there was not any transmission of the signal so at alarm sounded. She is in need of a new thumb drive for the machine and is waiting on that. Her defibrillator did not discharge. She was relatively asymptomatic through the whole event. She has been having epigastric abdominal pain off and on for the past year. She has a history of peptic ulcer disease and it feels similar to that. She is taking PPI routinely. She has not noticed any melena or blood in her stool. Pain is sharp in nature. She can not relate any palliative or provocative maneuvers. She took Carafate in the past and that helped. She is still having a lot of trouble sleeping. The trazodone did not help. She does use lorazepam 0.5 mg twice a day with benefit. She takes it before bed but it is does not help with sleep very much. She has been stressed out. One of her best friends recently . She had used Lunesta in the past with benefit. Follow-up Associated symptoms include abdominal pain (epigastric, comes and goes x 1 yr, sharp pain; feels like her peptic ulcer). The following portions of the patient's history were reviewed and updated as appropriate: allergies, current medications, past family history, past medical history, past social history, past surgical history, problem list, and medication reconciliation was completed including current medication and post discharge medication. Review of Systems Constitutional: Negative. Respiratory: Negative. Cardiovascular: Negative. Gastrointestinal: Positive for abdominal pain (epigastric, comes and goes x 1 yr, sharp pain; feels like her peptic ulcer). Psychiatric/Behavioral: Positive for sleep disturbance. The patient is nervous/anxious. Objective Physical Exam Vitals reviewed. Exam conducted with a paper machine back tender present (Nia Amin MS 3). Constitutional: General: She is not in acute distress. Appearance: She is overweight. She is not ill-appearing. HENT: Head: Normocephalic. Eyes: General: No scleral icterus. Extraocular Movements: Extraocular movements intact. Conjunctiva/sclera: Conjunctivae normal. Neck: Vascular: No carotid bruit. Cardiovascular: Rate and Rhythm: Normal rate and regular rhythm. Pulses: Normal pulses. Heart sounds: Normal heart sounds. No murmur heard. Pulmonary: Effort: Pulmonary effort is normal. No respiratory distress. Breath sounds: Normal breath sounds. No wheezing, rhonchi or rales. Abdominal: General: Bowel sounds are normal. There is no distension. Palpations: Abdomen is soft. There is no mass. Tenderness: There is no abdominal tenderness (Epigastric). Hernia: No hernia is present. Musculoskeletal: Cervical back: Neck supple. Right lower leg: No edema. Left lower leg: No edema. Lymphadenopathy: Cervical: No cervical adenopathy. Neurological: General: No focal deficit present. Mental Status: She is alert. Cranial Nerves: Cranial nerves 2-12 are intact. Gait: Gait is intact. Psychiatric: Attention and Perception: Attention normal. Mood and Affect: Mood and affect normal. Speech: Speech normal. Behavior: Behavior normal. Behavior is cooperative. Thought Content: Thought content normal. Cognition and Memory: Cognition normal. Assessment/Plan Essence was seen today for follow-up. Diagnoses and all orders for this visit: Ventricular tachycardia ([facility]) Stable. No recent firing by her ICD. Follow up with cardiology. Hospital records were reviewed. Depression, unspecified depression type She is on sertraline 100 mg. We discussed adjusting the dose but she would like to stay on the current dose. Part of her depression right now is grieving over the loss of a friend. Insomnia, unspecified type - eszopiclone (LUNESTA) 1 mg tablet; Take 1 tablet (1 mg total) by mouth in the morning. Take immediately before bedtime. Trazodone was ineffective. We will try Lunesta. She did take that in the past with benefit. It is a high risk medication. Congestive heart failure, unspecified HF chronicity, unspecified heart failure type (CMS-HCC) Stable. Follow up with Cardiology. Overweight (BMI 25.0-29.9) She is overweight. She would benefit from weight loss. May exercise if okay with Cardiology. Gastritis without bleeding, unspecified chronicity, unspecified gastritis type Add Carafate 1 g 4 times a day. Colon cancer screening She is unsure when her colonoscopy was. It was done by Dr. Smiley in [place]. She will check with his office. She may need an EGD if it is not any better. Other orders - sucralfate (CARAFATE) 1 gram tablet; Take 1 tablet (1 g total) by mouth in the morning and 1 tablet (1 g total) at noon and 1 tablet (1 g total) in the evening and 1 tablet (1 g total) before bedtime. documented in this encounter [facility] 07-25-2024 Miscellaneous Notes Pt called to have the topamax refilled , she stated it was from [facility] , are you able to refill it for her ? She is out and has had a migraine since yesterday documented in this encounter [facility] 07-25-2024 Telephone encounter Note Pt called to have the topamax refilled , she stated it was from [facility] , are you able to refill it for her ? She is out and has had a migraine since yesterday [facility] 07-11-2024 Miscellaneous Notes Patient called and is struggling with parents deaths and birthdays right now and was wondering if you can up the adivan and add zoloft till she sees you in August. I can increase her Zoloft seen but she would need a oxbv-ys-tebs visit to increase her Ativan. I sent in Zoloft 100 mg she can take 1.5 tablets daily Spoke to patient and she is fine with this. documented in this encounter [facility] 07-11-2024 Telephone encounter Note Patient called and is struggling with parents deaths and birthdays right now and was wondering if you can up the adivan and add zoloft till she sees you in August. [facility] 07-11-2024 Telephone encounter Note I can increase her Zoloft seen but she would need a dffi-nz-jnpg visit to increase her Ativan. I sent in Zoloft 100 mg she can take 1.5 tablets daily [facility] 07-11-2024 Telephone encounter Note Spoke to patient and she is fine with this. [facility] 06-20-2024 Miscellaneous Notes Pt needs a refill on prilosec. Pharmacy is listed and correct. documented in this encounter [facility] 06-20-2024 Telephone encounter Note Pt needs a refill on prilosec. Pharmacy is listed and correct. [facility] 06-07-2024 Miscellaneous Notes Pt would like a refill of TraZODONE called in to her local pharmacy. Pt was wondering if you could call in something for pain or advise her on something she could take for her back?. She can not take tylenol. She is on lorazepam so I can't give her an opioid. She has a muscle relaxer on her medication list so she should be using that. Why can't she take tylenol? documented in this encounter [facility] 06-07-2024 Telephone encounter Note Pt would like a refill of TraZODONE called in to her local pharmacy. Pt was wondering if you could call in something for pain or advise her on something she could take for her back?. She can not take tylenol. [facility] 06-07-2024 Telephone encounter Note She is on lorazepam so I can't give her an opioid. She has a muscle relaxer on her medication list so she should be using that. Why can't she take tylenol? [facility] 05-31-2024 History of Presen t illness Narrative Subjective Patient ID: Essence Vincent is a 53 y.o. female. Essence presents today as a new patient. She has multiple medical problems. She had heart attack when she was 28. She sees the manager lvn. She has an implantable pacemaker/defibrillator. It has gone off multiple times in the past but nothing recently. She saw the manager lvn recently and had labs done a few months ago. She does not drive. She relies on others for transportation. She has anxiety. She does have what she describes as anxiety attacks. She will get anxious and then starts to hyperventilate. Her heart rate then goes up and she is worried that she will have a heart attack. She takes lorazepam 1 to 3 a day but usually it is about 2 a day. Her previous physician has refused to prescribe her anymore. She did not give a reason why. She is willing to increase her Zoloft. She does have migraines. She would like to see a neurologist. New Patient The following portions of the patient's history were reviewed and updated as appropriate: allergies, current medications, past family history, past medical history, past social history, past surgical history, problem list, and medication reconciliation was completed including current medication and post discharge medication. Review of Systems Cardiovascular: Negative. Skin: Negative. Psychiatric/Behavioral: Positive for sleep disturbance. The patient is nervous/anxious. Objective Physical Exam Vitals reviewed. Constitutional: Appearance: She is overweight. HENT: Head: Normocephalic. Eyes: General: No scleral icterus. Extraocular Movements: Extraocular movements intact. Conjunctiva/sclera: Conjunctivae normal. Neck: Vascular: No carotid bruit. Cardiovascular: Rate and Rhythm: Normal rate and regular rhythm. Pulses: Normal pulses. Heart sounds: Normal heart sounds. No murmur heard. Pulmonary: Effort: Pulmonary effort is normal. No respiratory distress. Breath sounds: Normal breath sounds. No wheezing, rhonchi or rales. Abdominal: General: Bowel sounds are normal. Palpations: Abdomen is soft. Tenderness: There is no abdominal tenderness. Musculoskeletal: Cervical back: Neck supple. Right lower leg: No edema. Left lower leg: No edema. Lymphadenopathy: Cervical: No cervical adenopathy. Neurological: General: No focal deficit present. Mental Status: She is alert. Cranial Nerves: Cranial nerves 2-12 are intact. Gait: Gait is intact. Psychiatric: Attention and Perception: Attention normal. Mood and Affect: Mood and affect normal. Speech: Speech normal. Behavior: Behavior normal. Behavior is cooperative. Thought Content: Thought content normal. Cognition and Memory: Cognition normal. Assessment/Plan Essence was seen today for new patient. Diagnoses and all orders for this visit: Coronary artery disease involving [place] coronary artery of [place] heart, unspecified whether angina present Stable. Follow up with manager lvn as directed Depressed mood in Alzheimer's disease ([facility]) - sertraline (ZOLOFT) 100 mg tablet; Take 1 tablet (100 mg total) by mouth in the morning. Increase Zoloft to 100 mg daily. Renew Namenda 28 mg daily. She may want to discuss this with the neurologist as well. Renal artery stenosis ([facility]) Stable. Follow-up with specialist Restless leg syndrome She is still bothered by restless legs syndrome. Increase Requip to 2 mg at bedtime. Panic anxiety syndrome - LORazepam (ATIVAN) 0.5 mg tablet; Take 1 tablet (0.5 mg total) by mouth in the morning and 1 tablet (0.5 mg total) before bedtime. - Discontinue: sertraline (ZOLOFT) 50 mg tablet; Take 1 tablet (50 mg total) by mouth in the morning. - sertraline (ZOLOFT) 100 mg tablet; Take 1 tablet (100 mg total) by mouth in the morning. Increase sertraline to 100 mg daily. We discussed renewing her lorazepam. She has been on it for quite some time. It is beneficial for her. She is not having any side effects. Risks and benefits of long-term benzodiazepine use discussed. We will continue to use it as she is getting benefit. Controlled substance agreement signed. The OARRS/MAPPS database was reviewed today and found to be appropriate. No indication of medication diversion, or non compliance. Need for immunization against influenza - FLU VACCINE TS 2023-(6MOS UP)(PF) 45 MCG(15MCG X3)/0.5 ML IM SYRINGE Patient agrees to flu vaccine Other migraine without status migrainosus, not intractable - Ambulatory referral to Neurology ([facility]); Future Refer to neurology for migraines. Other orders - rOPINIRole (REQUIP) 2 mg tablet; Take 1 tablet (2 mg total) by mouth nightly. - memantine (NAMENDA XR) 28 mg capsule,sprinkle,ER 24hr; Take 1 capsule (28 mg total) by mouth in the morning. [facility] History of Presen t illness Narrative CARDIOLOGY OFFICE VISIT CHIEF COMPLAINT Chief Complaint Patient presents with Follow-up Pt is here today following up after 9 months post ICD insertion Chief complaint: I fractured my right foot. HISTORY OF PRESENT ILLNESS HPI History: The patient is a 53-year-old female who is followed for paroxysmal atrial fibrillation status post atrial fibrillation ablation with no documented clinical recurrence, sustained ventricular tachycardia status post elations through the [facility] with the most recent procedure being approximately 3 years ago, ischemic cardiomyopathy with left heart catheterization dated March 21, 2020 revealing chronic total occlusion of the circumflex with left to left bridging collaterals and a left ventricular ejection fraction of 20 to 25% per JOVITA dated January 21, 2022, valvular heart disease status post mitral valve repair and upgrade to a COUNTY AGRICULTURAL AGENT-D device on September 23, 2016 for the treatment of refractory heart failure. She underwent generator change out on September 29, 2023 for FILIBERTO parameters. She presents to the office today for follow-up evaluation of her ICD. She states that she has been under increased stress. She is moving to a trailer this weekend. She did sustain an injury by rolling her ankle in a hole and fracturing her right foot. She is in a walking boot. She does experience occasional palpitations and denies chest pain, dizziness, lightheadedness, shortness of breath, abdominal distention, or orthopnea. The patient is maintained on amiodarone for arrhythmia suppression and states it has been several years since she has undergone pulmonary function testing. She is also followed for hypothyroidism on replacement therapy. Past Medical History Past Medical History: Diagnosis Date Arrhythmia vtach, atrial flutter Atrial fibrillation (Multi) Coronary artery disease Hyperlipidemia Social History Social History Tobacco Use Smoking status: Every Day Current packs/day: 0.00 Types: Cigarettes Last attempt to quit: 08/2021 Years since quittin.6 Smokeless tobacco: Never Substance Use Topics Alcohol use: Not Currently Comment: rare Drug use: Never Family History [...] Ondansetron Hcl Other Varenicline Other and Unknown Latex Rash Levofloxacin Other and Palpitations Outpatient Medications: Current Outpatient Medications Medication Instructions albuterol 90 mcg/actuation inhaler if needed. amiodarone (PACERONE) 200 mg, oral, Daily aspirin 81 mg, oral, Daily, HOLD for 1 week. May resume on 10/06/2023. atorvastatin (LIPITOR) 80 mg, oral, Nightly weydbgdsil-tyhffovljieuu-ovtf (Fioricet) 50-300-40 mg capsule 1 capsule, oral, Every 4 hours PRN hydrOXYzine HCL (Atarax) 10 mg tablet isosorbide mononitrate ER (IMDUR) 30 mg, oral, Daily, Emergency refill levothyroxine (SYNTHROID, LEVOXYL) 75 mcg, oral, Daily before breakfast magnesium oxide (MAG-OX) 400 mg, oral, 2 times daily metoprolol succinate XL (TOPROL-XL) 100 mg, oral, Nightly nitroglycerin (Nitrostat) 0.[address] 1 TABLET UNDER THE TONGUE EVERY 5 MINUTES FOR UP TO 3 DOSES NEEDED FOR CHEST PAIN. CALL 911 IF PAIN PERSISTS. OLANZapine (ZyPREXA) 2.5 mg tablet omeprazole (PriLOSEC) [address] capsule 1 capsule, oral, Daily potassium chloride CR 20 mEq ER tablet 20 mEq, oral, 2 times daily rOPINIRole (Requip) 2 mg tablet 1 tablet, oral, 3 times daily sertraline (Zoloft) 50 mg tablet torsemide (DEMADEX) 40 mg, oral, Daily traZODone (Desyrel) 50 mg tablet 1 tablet, oral, Nightly PRN warfarin (Coumadin) 5 mg tablet TAKE 1 TO 1 & 1/2 TABLETS BY MOUTH ONCE DAILY DIRECTED. REVIEW OF SYSTEMS Review of Systems All other systems reviewed and are negative. VITALS Vitals: 05/11/24 1034 BP: 112/76 Pulse: 88 PHYSICAL EXAM Vitals and nursing note reviewed. Constitutional: Appearance: Normal appearance. HENT: Head: Normocephalic. Neck: Vascular: No JVD. Carotid upstrokes II/IV. Cardiovascular: Rate and Rhythm: Normal rate and regular rhythm. Pulses: Normal pulses. Heart sounds: Normal S1 S2, no S3 S4. No murmurs or rubs. Pulmonary: Effort: Pulmonary effort is normal. Respirations regular and nonlabored. Breath sounds: Clear to auscultation posterior laterally. Abdominal: General: Bowel sounds are normal. Palpations: Abdomen is soft. Musculoskeletal: General: Normal range of motion. Cervical back: Normal range of motion. Orthopedic boot to the right lower extremity. Skin: General: Skin is warm and dry. Left subclavian ICD pocket is well-healed without redness swelling or drainage. Neurological: General: No focal deficit present. Mental Status: Alert and oriented to person, place, and time. Motor: Motor function is intact. Psychiatric: Attention and Perception: Attention and perception normal. Mood and Affect: Mood and affect normal. Speech: Speech normal. Behavior: Behavior normal. Behavior is cooperative. Thought Content: Thought content normal. Cognition and Memory: Cognition and memory normal. Labs and testing: Twelve-lead EKG reveals atrial sensing and ventricular pacing at 88 bpm. QRS duration is 226 ms, QT 530 ms. ICD interrogation dated May 11, 2024 reveals atrial pacing 81.7% and ventricular pacing 87.8%. 2 treated AT/AF episodes were noted with the longest being on May 02, 2024 lasting 7 minutes and 25 seconds with a burden of less than 0.1%. 1 SVT episode was also noted at a rate of 146 bpm. Good sensing and capture thresholds are noted. Estimated battery longevity is 6 years and 10 months. 2D echocardiogram dated March 30, 2024 revealed an ejection fraction of 30 to 35%, mild concentric LVH, moderate left atrial enlargement, moderate mitral stenosis, mild tricuspid regurgitation, pulmonary hypertension with a right ventricular systolic pressure 57 mmHg. ASSESSMENT AND PLAN Clinical impressions: 1. Ischemic cardiomyopathy with a left ventricular ejection fraction of 20 to 25% per transesophageal echo dated January 21, 2022, improved to 30 to 35% per 2D echocardiogram dated March 30, 2024, [place] Heart Association class II, stage C heart failure at today's office [...] post 3 VT ablation procedures at the [facility] and maintained on a combination of amiodarone, metoprolol, and magnesium oxide for ventricular arrhythmia suppression. (Medtronic Viva XT COUNTY AGRICULTURAL AGENT-D). AV biventricular ICD generator change out on September 29, 2023 for FILIBERTO parameters (Medtronic Claria MRI COUNTY AGRICULTURAL AGENT-D). Maintained on amiodarone, beta-blockade, and magnesium oxide for ventricular arrhythmia suppression. 4. Dyslipidemia on statin. 5. Paroxysmal atrial [...] of 30.66. Recommendations: 1. I discussed with patient the importance of obtaining the pulmonary function testing, TSH, comprehensive metabolic profile for evaluation while on amiodarone which is considered a high risk medication. The patient states that [facility] is closest to her home. She was provided with requisitions for each of these tests and instructed to contact the hospital to schedule those procedures. If they do not perform pulmonary function testing at that facility she will undergo testing through [facility]. 2. Obtain a remote device interrogation on September 29, 2023 and in clinic check in 6 months prior to the office visit with Dr. Nunez. 3. Follow-up in office with Dr. Nunez in 6 months or sooner if needed. 4. Continue lifestyle modifications as discussed. Evaluation and note by Jameel Valenzuela CNP Please excuse any errors in grammar or translation related to this dictation. Voice recognition software was utilized to prepare this document. documented in this encounter [facility] Work Phone: 03-30-2024 Progress note Note Date/Time March 30, 2024 1:38pm [facility] [address] [place] [address] Progress Note Signed Patient: Essence Vincent MR#: [id number] : 1970 Acct:[id number] Age/Sex: 53 / F Adm Date: 4 Loc: Room: [address] [place] [address] Type: ADM INOo Attending Dr: Patrica Mcmahon [...] <Electronically signed by Patrica Mcmahon MD> 03/30/24 0338 [facility] Work Phone: 1(800) 164-627308-01-2024 History and physical note Author Kendrick Jorgensen [facility] March 30, 2024 3:54am Note Date/Time March 30, 2024 2:3 6am [facility] [address] [place] [address] Hospitalist H&P Signed Patient: Essence Vincent MR#: [id number] : 1970 Acct:[id number] Age/Sex: 53 / F Adm Date: 4 Loc: Room: [address] [place] [address] Type: ADM INOo Attending Dr: Kendrick Jorgensen MD Copies to: MD Amanda Quiroga APRN, PEDRO Russell APRN~ HPI DATE OF EXAMINATION: 03/30/24 CHIEF COMPLAINT: palpitations HISTORY OF PRESENT ILLNESS: Ms. Vincent is a 53-year-old female with a PMH of AMI, VT, SVT, AICD placement, mitral valve replacement, A-fib, hypothyroidism, DVT, atrial thrombus, warfarin therapy, CHF presented to the emergency room [facility] for complaints of palpitations. Patient states [...] she has been seeing psychiatry services in [place] for anxiety. Reports she lost her parents [...] behind her left eye, sees neuro at [facility] in [place], Dr. Robles. States they are just watching [...] positive for barbiturates and marijuana-she is on istlyicgmp-cphpuspoqgrvp-edrcjfao as needed for headaches. She was medicated with lorazepam, potassium, Nitropaste 1 inch. She will be admitted as observation to the [facility] telemetry floor. Review of Systems Review of Systems Review of systems: A 10 point review of systems was obtained, negative unless noted in the HPI or below. [facility] Medical History (Updated 03/30/24 @ 03:17 by Kristyn Russell APRN) Paroxysmal A-fib Deep vein thrombosis (DVT) Presence of combination internal cardiac defibrillator (ICD) and pacemaker Ventricular tachycardia (08/04/18) Hypotension CHF (congestive heart failure) Atrial thrombus Large clot found [facility] heart at [facility]. COPD (chronic obstructive pulmonary disease) Myocardial [...] breath or wheezing 02/17/24 [History Confirmed 03/30/24] ohltoyzmxb-dbdadgrdantau-ppalsqeh 50 mg-300 mg-40 mg capsule (Fioricet) 1 [...] 00:27 Lymph % (Auto) N/A 03/30/24 00:27 Mccracken % (Auto) N/A 03/30/24 00:27 Eos % (Auto) N/A 03/30/24 00:27 Baso % (Auto) N/A 03/30/24 00:27 Nucleat RBC Rel Count N/A 03/30/24 00:27 Neut # (Auto) N/A 03/30/24 00:27 Lymph # (Auto) N/A 03/30/24 00:27 Mccracken # (Auto) N/A 03/30/24 00:27 Eos # [...] Monocyte Dist Width 16.64 % (0.00-20.00) 03/30/24 00: Platelet Estimate Normal (Normal) 03/30/24 00: Giant Platelets 5 /100 WBC 03/30/24 00: Plt Morphology Comment Normal (Normal) 03/30/24 00: RBC Morphology N/A 03/30/24 00: Polychromasia Slight 03/30/24: Hypochromasia Marked 03/30/24 00: Poikilocytosis Moderate 03/30/24: Anisocytosis Marked 03/30/24 00: Microcytosis Marked 03/30/24 00: Sickle Cells Slight (None Seen) H 03/30/24 00: Target Cells Slight 03/30/24: Tear Drop Cells Slight 03/30/24 00: Ovalocytes Slight 03/30/24 00: Schistocytes Slight 03/30/24 00: PT 12.9 Seconds (9.0-12.9) 03/30/24: INR 1.1 03/30/24: APTT 25.3 Seconds (25.1-36.5) 03/30/24 00: PHA Creatinine Clear 58.60 03/30/24 00: Sodium 137 mmol/L (136-145) 03/30/24 00: Potassium 3.3 mmol/L (3.5-5.1) L 03/30/24 00: Chloride 103 mmol/L (98-107) 03/30/24: Carbon Dioxide [...] pH 6.5 (5.0-9.0) 03/30/24 02:00 Ur Specific [place] 1.016 (1.001-1.030) 03/30/24 02:00 Urine Protein Negative [...] a.m. ? Follows with Dr. Mazariegos in [place] ? Patient reports she takes torsemide daily at home Generalized anxiety disorder ? Lorazepam twice daily as needed Iron deficiency anemia?current H&H 9.331.3, patient reports she does not take iron [...] 1 Documented By: Kristyn Russell APRN 03/30/24 0234 Signed By: <Electronically signed by PETE Russell> 03/30/24 0352 <Electronically signed by Kendrick Jorgensen MD> 03/30/24 0354 [facility] Work Phone: 1(859) 975-650505-09-2024 NoteDate of Service: 01/04/2024 Procedure: Diagnostic cerebral [...] ([place]) cerebral angiogram --Right common femoral artery (IC DESIGN ENGINEER) angiogram Neurointerventionalist: Pedro Fan MD Nixon: Garry New MD Contrast: 98 cc of [...] with a micropuncture technique, and a 5 Lao intravascular sheath wasplaced within the right common femoral artery, establishing arterial access using modified Seldinger technique. The ultrasound guidance image was not captured and archived in the patient's record. 2000u of heparin IV was administered. A 5 Lao multipurpose catheter was then advanced over a [...] The left internal marquez (more content not included)...[facility]02-13-2024 History of Present illness Narrative* Heydi Jiang, [facility] - 10/12/2023 3:50 PM EST Patient seen [...] Spent (min): 20 Heydi Jiang, PharmD PGY1 Kaiawhina Kohanga Reo Bon [facility] of Present illness Narrative* Marcelo Champagne [facility] - 10/11/2023 1:30 PM EST Patient seen [...] Spent (min): 20 [facility] History of Present illness Narrative* Savannah Chang - 10/07/2023 11:37 AM EST Pt does not want Butalbital/APAP/Caffeine 50/325/40 tabs on file at [facility].Pt in need of Requip miscommunication between pt/nurse/prescriber pt will specify which home pharmacy to have Requip sent to is ready for discharge 10/07/23 11:36am k[facility] Butalbital/APAP/Caffeine 50/325/40 tabs $18.37 10/07/23 11:15am out for delivery k[facility] pt has copay unable to enter room due to restrictions unable to reach pt via room phone or cell to discuss payment * Marcelo Raman [facility] - 10/07/2023 8:44 AM EST Pharmacy Note [...] today. Daily PT/INR while inpatient. Marcelo Raman, JavyPh. 10/07/2023 8:44 AM * Yvette Alatorre RN [...] - 10/06/2023 2:29 PM EST Pharmacy from [place] [facility] came to floor to give patient a card for an appt on 10/08/23 at 10:30am. Card was given to patient. * Yvette Alatorre RN - 10/06/2023 2:28 PM EST Spoke with Savannah from OP pharmacy they are working on getting Lovenox for discharge as they are lowin stock. She will get back to contract technical writer. * Yvette Alatorre RN - 10/06/2023 1:18 PM EST Reception Clerk asked patient why she has been off [...] Patient gave herself her Lovenox today with contract technical writer in room to help educate. Patient did well and is comfortable with self injecting. * Diane Madrigal RPH - 10/06/2023 9:53 AM EST [...] 1.1 none 7.5 mg Notes: Per [facility] Medication Management office patient TRUCKSMITH dosing was 7.5 mg ONE day per week. All other days are 5 mg. Patient noncompliant with office and has not been seen for 1 year. Office Number [phone] Per Gauri Rey Daily PT/INR while inpatient. Diane Madrigal PharmD. [facility] 10/06/2023 9:53 AM * Eddie Farias [facility] - 10/06/2023 4:24 AM EST Pharmacy Note [...] to follow. * Azalea Cai APRN - BIOENGINEER - 10/05/2023 11:20 PM EST Essence Vincent [...] 10/05/2023 11:20 PM [facility] Note.ICD System pulse generator replacement Procedures: COUNTY AGRICULTURAL AGENT-D generator replacement (66933) Pocket revision with Tyrx pouch, 90029 - 59 (distinct procedure), Defibrillator generator threshold testing 16526, Pre and post ICD analysis and reprogramming 13896 x 2 Patient history: Please refer to [...] of infection. The patient should call the templer head immediately if symptoms recur, or for any problems. The patient and family (friend with HIPAA consent) have been instructed accordingly. Follow up in Clinic in 1 week for wound check. See complete procedural log and parameters. [id number] Hospital Discharge instructions* Discharge Instructions* Yessi Don APRN-BIOENGINEER - 09/29/2023 9:39 AM EST Images from [...] have been instructed by the device company financial representative regarding remote home monitoring. There are [...] your after visit summary [facility] Work Phone: 1(103) 346-302001-31-2024 Note* Pre-Sedation Documentation - Margareth Nunez MD - 09/29/2023 7:54 AM EST Sedation Plan ASA 2 Mallampati class: II. Risks, benefits, and alternatives discussed with patient. [facility] Work Phone: 1(714) 964-676701-31-2024 Miscellaneous Notes* Pre-Sedation Documentation - Margareth Nunez MD - 09/29/2023 7:54 AM EST Sedation Plan ASA 2 Mallampati class: II. Risks, benefits, and alternatives discussed with patient. documented in this [facility] Work Phone: 1(120) 402-801501-31-2024 Attending History and physical note* Margareth Nunez MD - 09/29/2023 7:52 AM EST H&P reviewed. The patient was examined and there are no changes to the H&P. She is here for generator change. She has chronic lower extremity edema and exertional dyspnea. Shared decision making performed. Benson decision tool. All questions answered. Econsent obtained. Source Note - Jameel Valenzuela, PETE-BIOENGINEER - 09/02/2023 2:30 PM EST CARDIOLOGY OFFICE [...] ventricular tachycardia status post ablations through the [facility] with the most recent procedure being [...] recently the device was upgraded to a COUNTY AGRICULTURAL AGENT-D device on September 23, 2016 for the [...] 80 mg tablet 1 tablet, oral, Nightly eyhizxvpqa-xuynwyxdfecqc-vbnq (Fioricet) 50-300-40 mg capsule 1 capsule, oral, [...] 80 bpm. Prolonged AV conduction with a MD interval of 300 ms. QRS durations 136 [...] per transesophageal echo dated January 21, 2022, [place] [employer] class III, stage C heart [...] post 3 VT ablation procedures [address] the [facility] and maintained on a combination of amiodarone, metoprolol, and magnesium oxide for ventricular arrhythmia suppression. (Medtronic Viva XT COUNTY AGRICULTURAL AGENT-D). 4. Dyslipidemia on statin. 5. Paroxysmal atrial [...] states that she does follow with a floor attendant for her COPD but has not had [...] software was utilized to prepare this document. [facility] Work Phone: 1(841) 962-965501-31-2024 History and physical note* Margareth Nunez MD - 09/29/2023 7:52 AM EST H&P reviewed. The patient was examined and there are no changes to the H&P. She is here for generator change. She has chronic lower extremity edema and exertional dyspnea. Shared decision making performed. Benson decision tool. All questions answered. Econsent obtained. Source Note - Jameel Garcia Bianca, ELECTRICIAN CONSTRUCTOR SUPERVISOR-BIOENGINEER - 09/02/2023 2:30 PM EST CARDIOLOGY OFFICE [...] ventricular tachycardia status post ablations through the [facility] with the most recent procedure being [...] recently the device was upgraded to a COUNTY AGRICULTURAL AGENT-D device on September 23, 2016 for the [...] 80 mg tablet 1 tablet, oral, Nightly dirqyebwxc-zqzyudsjtntmn-bogl (Fioricet) 50-300-40 mg capsule 1 capsule, oral, [...] 80 bpm. Prolonged AV conduction with a MD interval of 300 ms. QRS durations 136 [...] per transesophageal echo dated January 21, 2022, [place] [employer] class III, stage C heart [...] post 3 VT ablation procedures at the [facility] and maintained on a combination of amiodarone, metoprolol, and magnesium oxide for ventricular arrhythmia suppression. (Medtronic Viva XT COUNTY AGRICULTURAL AGENT-D). 4. Dyslipidemia on statin. 5. Paroxysmal atrial [...] states that she does follow with a floor attendant for her COPD but has not had [...] to prepare this document. documented in this [facility] Work Phone: 1(842) 725-326901-29-2024 Evaluation note* Encounter Date Diagnosis Assessment Notes Treatment Notes Treatment Clinical Notes Aug, Generalized anxiety disorder (ICD-10 - F41.1) [employer] Other 01-24-2024 Evaluation note* Encounter Date Diagnosis Assessment Notes Treatment Notes Treatment Clinical Notes Aug, Migraine without status migrainosus, not intractable, unspecified migraine type (ICD-10 - G43.909) last filled 07/27/2023 [employer] Other 01-24-2024 Evaluation note* Encounter Date Diagnosis Assessment Notes Treatment Notes Treatment Clinical Notes Aug, Migraine without status migrainosus, not intractable, unspecified migraine type (ICD-10 - G43.909) [employer] Other 01-02-2024 Evaluation note* Encounter Date Diagnosis Assessment Notes Treatment Notes Treatment Clinical Notes Aug, Generalized anxiety disorder (ICD-10 - F41.1) [employer] Other 11-29-2023 Miscellaneous Notes* Telephone Encounter - [...] Epic note, left voicemail. [facility] NotePROCEDURE: XR HUMERUS RT MIN [...] Electronically authenticated by: JC BRAVO Date: 2023-01-27 11:03[facility]05-31-2023 NotePROCEDURE: XR HUMERUS RT MIN 2 [...] Electronically authenticated by: JC BRAVO Date: 2023-01-27 11:03[facility]05-25-2022 NotePre-procedure Verification and Time Out: Pre-Procedure [...] Findings: grossly normal anatomy Procedure performed by: ga Furniture Finisher(s): none Estimated Blood Loss (mL): none Specimen: [...] of infection. The patient should call the templer head immediately if symptoms recur, or for any [...] right interatrial septum sites were mapped with yjcmq-rl-imtsi electroanatomical activation mapping and entrainment mapping from both the right atrial catheter and the ablation catheter. An Nintex mapping system was used to create a 3D image of the right atrium and cavotricuspid isthmus. Mapping was performed during sinus rhythm and atrial pacing. 4. Catheter RF ablation. Applications were delivered via a generator to (more content not included)...[facility]22 NoteHistory of Present Illness: /Lactating: Are [...] - Surgical Update < 30 days 21-Jan-2022 12:[address] [place] [address]-25-2022 NoteElectrophysiology Procedure TestingPlease click on the link to view the study images (Normal)- [facility] [address] [place] Work Phone: 1(370) 131-714905-25-2022 NoteElectrophysiology Procedure Testing Please click on the link to view the study images (Normal)-[facility] [address] DO Work Phone: 1([phone]) 129-734305-25-2022 NoteHistory & Physical Reviewed: /Lactating: Are You [...] COVID-19 what the risks are. Electronic Signatures: Terry Bhardwaj) (Signed 21-Jan-2022 12:49) Authored: History & Physical Reviewed, Airway/Sedation, ERAS, Consent, Note Completion Last Updated: 21-Jan-2022 12:49 by Terry Bhardwaj) References: 1. Data Referenced From Patient Profile - Preop v3 [facility]-2022 10:28[facility] NoteHistory of Present Illness: Admission Reason: [...] JOVITA/EPS/possible ablation. [facility]. Patient denies recent [...] Flutter Plan for Impressi (more content not included)...[facility] 12-23-2021 Evaluation note* Encounter Date Diagnosis Assessment Notes Treatment Notes Treatment Clinical Notes Nov, Medication monitoring encounter (ICD-10 - Z51.81) Referring Provider: Birdie Alonso (awaiting Dr. Hoskins referral) Diagnosis: Thrombus, [...] CELESTINA Pugh. Seen by Memo Fuchs PharmD [employer] Other 04-20-2022 Evaluation note* Encounter Date Diagnosis Assessment Notes Treatment Notes Treatment Clinical Notes Nov, Medication monitoring encounter (ICD-10 - Z51.81) Referring Provider: Birdie Alonso (new re will be Dr. Rojas [phone]) Diagnosis: Thrombus, Atrial Fibrillation INR Goal: 2-3 [...] referral is faxed to CELESTINA Butler. Called [facility] [phone], spoke with Amanda SUMNER RN. A [facility] Physician is scheduled to see on 12/22 and take her as a patient. [facility] fax number is [phone]. [facility] Order: draw PT/INR on Completed by: Susan Euceda RN [employer] Other 04-13-2022 Evaluation note* Encounter Date Diagnosis Assessment Notes Treatment Notes Treatment Clinical Notes Nov, Medication monitoring encounter (ICD-10 - Z51.81) Referring Provider: Birdie Alonso (new re will be Dr. Rojas [phone]) Diagnosis: Thrombus, Atrial Fibrillation INR Goal: 2-3 INR: 1.2 ( 12/09 ) Tablet Size: 5mg Wednesday: 5mg Wednesday: 7.5mg Wednesday: 5mg Wednesday: 7.5mg : 5mg Wednesday: 7.5mg Wednesday: 5mg Total Weekly Dose: 42.5mg [facility] was called, LVM at 8:38 asking for [...] at this time and to notify [facility] if she cannot make appointment. Patient will have INR drawn in clinic. It is recommended for patient to come in for appointments. Med list is updated. A Bridge Recommendation is faxed to PCP. Called [facility] [phone], lvm to return call. [facility] fax number is [phone]. [facility] Order: draw PT/INR on Completed by: Susan Euceda RN [employer] Other 03-23-2022 Evaluation note* Encounter Date Diagnosis Assessment Notes Treatment Notes Treatment Clinical Notes Oct, Medication monitoring encounter (ICD-10 - Z51.81) Referring Provider: Birdie Alonso Diagnosis: Thrombus, Atrial Fibrillation INR Goal: [...] the above instructions. Patient repeated correctly. Called [facility] [phone], lvm with instructions. [facility] fax number is [phone]. This Order is faxed. [facility] Order: draw PT/INR on Thursday, November 25, 2021 Completed by: Susan Euceda RN [employer] Other 03-15-2022 Evaluation note* Encounter Date Diagnosis Assessment Notes Treatment Notes Treatment Clinical Notes Oct, Medication monitoring encounter (ICD-10 - Z51.81) Referring Provider: Birdie Alonso Diagnosis: Thrombus, Atrial Fibrillation INR Goal: 2-3 INR: 2.2 Tablet Size: 5mg Wednesday: 5mg Wednesday: 7.5mg Wednesday: 5mg Wednesday: 7.5mg : 5mg Wednesday: 7.5mg Wednesday: 5mg Total Weekly Dose: 42.5mg Determing Dose. Continue above plan, Follow up in 1 week. See calendar. Patient is drinking Boost supplement once daily. Called [facility] [phone], lvm for nurse with Vera Patel. LVM on Amanda's phone. Amanda returned call, discussed the above instructions. [facility] fax number is [phone]. This Order is faxed. [facility] Order: draw PT/INR on Thursday, November 18, 2021 Completed by: Susan Euceda RN [employer] Other 03-09-2022 Evaluation note* Encounter Date Diagnosis Assessment Notes Treatment Notes Treatment Clinical Notes Oct, Medication monitoring encounter (ICD-10 - Z51.81) Referring Provider: Birdie Alonso Diagnosis: Thrombus, Atrial Fibrillation INR Goal: 2-3 INR: 1.11 ([facility] 11/05/21) Tablet Size: 5mg Wednesday: 5mg [...] plan. Patient states she will call [facility] after talking to family members for rides. [place]. Addendum: Nurse Adriana SUMNER from [facility] returned call and stated understanding to instructions. Phone for HH [phone] ext [phone], nurse with Vera. [employer] fax number is [phone] per pt. Home Health Order: draw INR on Thursday, November 11, 2021 Completed by: Susan Euceda RN [employer] Other 03-02-2022 Evaluation note* Encounter Date Diagnosis Assessment Notes Treatment Notes Treatment Clinical Notes Oct, Medication monitoring encounter (ICD-10 - Z51.81) Referring Provider: Birdie Alonso Diagnosis: Thrombus, Atrial Fibrillation INR Goal: 2-3 INR: 1.22 ([facility] 10/28/21) Tablet Size: 5mg Wednesday: 5mg Wednesday: 5mg Wednesday: 5mg Wednesday: 5mg : 5mg Wednesday: 5mg Wednesday: 5mg Total Weekly Dose: 35mg Determing Dose. Continue warfarin as instructed above. This will be discussed with Dr. Packer tomorrow as patient admits to having diarrhea and blood in stool. Clinical decision not to boost until Dr. Packer is made aware of bleeding. [phone]), nurse with Vera. [employer] fax number is [phone] per pt. Home Health Order: draw INR on Completed by: Jeane Dykes [facility] [employer] Other 02-24-2022 Evaluation note* Encounter Date Diagnosis Assessment Notes Treatment Notes Treatment Clinical Notes Sep, Medication monitoring encounter (ICD-10 - Z51.81) Referring Provider: Birdie Alonso Diagnosis: Thrombus, Atrial Fibrillation INR Goal: 2-3 INR: 1.29 ([facility]) Tablet Size: 5mg Wednesday: 5mg Wednesday: 5mg Wednesday: 5mg Wednesday: 5mg : 5mg Wednesday: 5mg Wednesday: 5mg Total Weekly Dose: 35mg Boost additional 2.5mg for 3 days, then resume above plan. Follow up with a draw on Wednesday. Patient was not bridged with Lovenox at discharge from [facility]. Patient has been back on warfarin for 1 week. BURAK Wright's phone number ([phone]), nurse with Vera. Vera fax number is [phone] per pt. Home Health Order: draw INR on Wednesday10/28/2021 Completed by: Jeane Dykes [facility] [employer] Other 01-01-2022 History of Present illness Narrative* [...] details. * She has remote history of [place] , cardiogenic shock, PCI circumflex and iABP, with persistent severe LV dysfunction. She later occluded her cicumflex. Years later, she had HF and severe MR and underwentmitral valve repair at [facility]. She had recurrent VT and atrial arrhythmias, and underwent several ablations and repeat percutaneous MVR at [facility]. After her MVR and ablation in July,, she had KALLI when then improved. She has had recurrent ICD shocks for atrial flutter. * Personal review of ECG and cardiac data reviewed * Outside records: * EP study and successful ablation of atrial flutter. Multiple atrial tachycardias, possible left atrial tachycardia also noted and not targeted for ablation. December 2021. * Discharge summary [facility] Oct 2021 * Cardiology consult Oct [...] Patient reports that [facility] [place] cardiology for further adjustment of medication. Patient will notify us with whom she follows. Co nsider referral to advanced heart failure section. * Sustained VT s/p ablations at [facility]. No documentation of ablations available in chart. * CAD, chronic. See above. Reviewed meds. Continue meds. Discussed refills. * Biventricular ICD for refractory heart failure. Medtronic [id number]. Reviewed device check. No recentdevice check noted. Order sent to [facility] device clinic for device checks. * Hypertension, chronic. Stable. Reviewed meds. Continue meds. Discussed refills. * Migraine headache * AHA recommendations for exercise, diet, and behavioral modification reviewed with pt. * The patient and I discussed the mechanism of arrhythmia, ablation to prevent atrial flutter, no recurrent inappropriate shocks, need for compliance for device checks, order sent to [facility] for device checks, follow-up with heart failure clinic at [facility], indications for and typesof medications, discussion if and what medication refills needed, treatment options, risks, benefits, and imponderables. [place] [employer] lifestyle changes and behavioral modification discussed. All questions answered in detail. Counseling over 50% visit regarding above. Patient appreciative of care. * Grammar * Please excuse grammatical or dictation errors as software dictation application being used. [facility] DO Work Phone: 1(539) 460-528211-18-2021 Evaluation note* Encounter Date Diagnosis Assessment Notes Treatment Notes Treatment Clinical Notes Jun, Medication monitoring encounter (ICD-10 - Z51.81) Referring Provider: Birdie Alonso Diagnosis: Thrombus, Atrial Fibrillation INR Goal: [...] 2 weeks. Seen by Memo Fuchs PharmD [employer] Other 11-01-2021 Evaluation note* Encounter Date Diagnosis Assessment Notes Treatment Notes Treatment Clinical Notes Jun, Medication monitoring encounter (ICD-10 - Z51.81) Referring Provider: Birdie Alonso Diagnosis: Thrombus, Atrial Fibrillation INR Goal: 2-3 INR: 4.4 Tablet Size: 5mg Wednesday: 5mg Wednesday: 5mg Wednesday: 5mg Wednesday: 5mg : 5mg Wednesday: 5mg Wednesday: 5mg Total Weekly Dose: 35mg Hold warfarin today, Saturday 06/30 and then begin new plan, a 7% decrease. Discussed compliance with appointments. See raymond. Follow up in 2 weeks. Seen by Susan Euceda RN [employer] Other 10-11-2021 Evaluation note* Encounter Date Diagnosis Assessment Notes Treatment Notes Treatment Clinical Notes May, Medication monitoring encounter (ICD-10 - Z51.81) Referring Provider: Birdie Alonso Diagnosis: Thrombus, Atrial Fibrillation INR Goal: [...] 2 weeks. Seen by Jose Molina PharmD [employer] Other 10-17-2020 History of Past illness Narrative* Problem Noted Date Resolved Date Acute on chronic systolic (congestive) heart irvingtomas latif 06/15/2020 07/23/2020 Overview: Acute on chronic [...] 260ms and 260ms) terminating VT. Transfer to [facility] on 06/20 Plan: Continue amiodarone 400 [...] 07/13/2012 1 09/15/2011 Overview: IV Fentanyl PRN, EXPORT PACKER, Lidoderm patches, Po pain meds Pulmonary insuff [...] papillary muscles and chordal apparatus Dual chamber COUNTY AGRICULTURAL AGENT-D 07/23/2020 Overview: On 07.14.12 -fired x6 for SVT/AF HRs 140-150 (pacer set at 130- any HR over that it recognizes as VT). EP consulted- will follow their recommendations (will continue po amio taper to control rate). Needs pacer check- Wednesday07.18.2012- will d/w EP about pacer check. H/o GERD 07/23/2020 Overview: 07.18.2012: Asymptomatic. On Protonix. documented as of this encounter (statuses as of 01/14/2022) [facility] History of Past illness Narrative* Problem [...] 260ms and 260ms) terminating VT. Transfer to [facility] on 06/20 Plan: Continue amiodarone 400 [...] 07/13/2012 1 09/15/2011 Overview: IV Fentanyl PRN, EXPORT PACKER, Lidoderm patches, Po pain meds Pulmonary insuff [...] papillary muscles and chordal apparatus Dual chamber COUNTY AGRICULTURAL AGENT-D 07/23/2020 Overview: On 07.14.12 -fired x6 for SVT/AF HRs 140-150 (pacer set at 130- any HR over that it recognizes as VT). EP consulted- will follow their recommendations (will continue po amio taper to control rate). Needs pacer check- Wednesday07.18.2012- will d/w EP about pacer check. H/o GERD 07/23/2020 Overview: 07.18.2012: Asymptomatic. On Protonix. documented as of this encounter (statuses as of 04/12/2022) [facility] History of Past illness Narrative* Problem [...] 260ms and 260ms) terminating VT. Transfer to [facility] on 06/20 Plan: Continue amiodarone 400 [...] 07/13/2012 1 09/15/2011 Overview: IV Fentanyl PRN, EXPORT PACKER, Lidoderm patches, Po pain meds Pulmonary insuff [...] CBC, Coags, BMP, Mg, Phos Basename 07/12/12 0509 07/11/12 2220 WBC 8.50 6.78 HB 13.1 [...] papillary muscles and chordal apparatus Dual chamber COUNTY AGRICULTURAL AGENT-D 07/23/2020 Overview: On 07.14.12 -fired x6 for SVT/AF HRs 140-150 (pacer set at 130- any HR over that it recognizes as VT). EP consulted- will follow their recommendations (will continue po amio taper to control rate). Needs pacer check- Wednesday07.18.2012- will d/w EP about pacer check. H/o GERD 07/23/2020 Overview: 07.18.2012: Asymptomatic. On Protonix. documented as of this encounter (statuses as of 06/01/2022) [facility] History of Past illness Narrative* Problem [...] 260ms and 260ms) terminating VT. Transfer to [facility] on 06/20 Plan: Continue amiodarone 400 [...] 07/13/2012 1 09/15/2011 Overview: IV Fentanyl PRN, EXPORT PACKER, Lidoderm patches, Po pain meds Pulmonary insuff [...] papillary muscles and chordal apparatus Dual chamber COUNTY AGRICULTURAL AGENT-D 07/23/2020 Overview: On 07.14.12 -fired x6 for SVT/AF HRs 140-150 (pacer set at 130- any HR over that it recognizes as VT). EP consulted- will follow their recommendations (will continue po amio taper to control rate). Needs pacer check- Wednesday07.18.2012- will d/w EP about pacer check. H/o GERD 07/23/2020 Overview: 07.18.2012: Asymptomatic. On Protonix. documented as of this encounter (statuses as of 07/01/2022) [facility] History of Past illness Narrative* Problem [...] 260ms and 260ms) terminating VT. Transfer to [facility] on 06/20 Plan: Continue amiodarone 400 [...] 07/13/2012 1 09/15/2011 Overview: IV Fentanyl PRN, EXPORT PACKER, Lidoderm patches, Po pain meds Pulmonary insuff [...] papillary muscles and chordal apparatus Dual chamber COUNTY AGRICULTURAL AGENT-D 07/23/2020 Overview: On 07.14.12 -fired x6 for SVT/AF HRs 140-150 (pacer set at 130- any HR over that it recognizes as VT). EP consulted- will follow their recommendations (will continue po amio taper to control rate). Needs pacer check- Wednesday07.18.2012- will d/w EP about pacer check. H/o GERD 07/23/2020 Overview: 07.18.2012: Asymptomatic. On Protonix. documented as of this encounter (statuses as of 07/27/2022) [facility] History of Past illness Narrative* Problem [...] 260ms and 260ms) terminating VT. Transfer to [facility] on 06/20 Plan: Continue amiodarone 400 [...] 07/13/2012 1 09/15/2011 Overview: IV Fentanyl PRN, EXPORT PACKER, Lidoderm patches, Po pain meds Pulmonary insuff [...] papillary muscles and chordal apparatus Dual chamber COUNTY AGRICULTURAL AGENT-D 07/23/2020 Overview: On 07.14.12 -fired x6 for SVT/AF HRs 140-150 (pacer set at 130- any HR over that it recognizes as VT). EP consulted- will follow their recommendations (will continue po amio taper to control rate). Needs pacer check- Wednesday07.18.2012- will d/w EP about pacer check. H/o GERD 07/23/2020 Overview: 07.18.2012: Asymptomatic. On Protonix. documented as of this encounter (statuses as of 08/30/2022) [facility] History of Past illness Narrative* Problem [...] 260ms and 260ms) terminating VT. Transfer to [facility] on 06/20 Plan: Continue amiodarone 400 [...] 07/13/2012 1 09/15/2011 Overview: IV Fentanyl PRN, EXPORT PACKER, Lidoderm patches, Po pain meds Pulmonary insuff [...] papillary muscles and chordal apparatus Dual chamber COUNTY AGRICULTURAL AGENT-D 07/23/2020 Overview: On 07.14.12 -fired x6 for SVT/AF HRs 140-150 (pacer set at 130- any HR over that it recognizes as VT). EP consulted- will follow their recommendations (will continue po amio taper to control rate). Needs pacer check- Wednesday07.18.2012- will d/w EP about pacer check. H/o GERD 07/23/2020 Overview: 07.18.2012: Asymptomatic. On Protonix. documented as of this encounter (statuses as of 09/11/2022) [facility] History of Past illness Narrative* Problem [...] 260ms and 260ms) terminating VT. Transfer to [facility] on 06/20 Plan: Continue amiodarone 400 [...] 07/13/2012 1 09/15/2011 Overview: IV Fentanyl PRN, EXPORT PACKER, Lidoderm patches, Po pain meds Pulmonary insuff [...] papillary muscles and chordal apparatus Dual chamber COUNTY AGRICULTURAL AGENT-D 07/23/2020 Overview: On 07.14.12 -fired x6 for SVT/AF HRs 140-150 (pacer set at 130- any HR over that it recognizes as VT). EP consulted- will follow their recommendations (will continue po amio taper to control rate). Needs pacer check- Wednesday07.18.2012- will d/w EP about pacer check. H/o GERD 07/23/2020 Overview: 07.18.2012: Asymptomatic. On Protonix. documented as of this encounter (statuses as of 11/28/2022) [facility] History of Past illness Narrative* Problem [...] 260ms and 260ms) terminating VT. Transfer to [facility] on 06/20 Plan: Continue amiodarone 400 [...] 07/13/2012 1 09/15/2011 Overview: IV Fentanyl PRN, EXPORT PACKER, Lidoderm patches, Po pain meds Pulmonary insuff [...] DM: No Cardiac Surgical prep: N/A SIGNATURE: iCndi Ramírez MS, XIOMY DATE of SERVICE: 07/08/2012 [...] papillary muscles and chordal apparatus Dual chamber COUNTY AGRICULTURAL AGENT-D 07/23/2020 Overview: On 07.14.12 -fired x6 for SVT/AF HRs 140-150 (pacer set at 130- any HR over that it recognizes as VT). EP consulted- will follow their recommendations (will continue po amio taper to control rate). Needs pacer check- Wednesday07.18.2012- will d/w EP about pacer check. H/o GERD 07/23/2020 Overview: 07.18.2012: Asymptomatic. On Protonix. documented as of this encounter (statuses as of 03/05/2023) [facility] History of Past illness Narrative* Problem [...] 260ms and 260ms) terminating VT. Transfer to [facility] on 06/20 Plan: Continue amiodarone 400 [...] pain 07/13/2012 07/16/2012 Overview: IV Fentanyl PRN, EXPORT PACKER, Lidoderm patches, Po pain meds Pulmonary insuff [...] papillary muscles and chordal apparatus Dual chamber COUNTY AGRICULTURAL AGENT-D 0 Overview: On 07.14.12 -fired x6 for SVT/AF HRs 140-150 (pacer set at 130- any HR over that it recognizes as VT). EP consulted- will follow their recommendations (will continue po amio taper to control rate). Needs pacer check- Wednesday07.18.2012- will d/w EP about pacer check. H/o GERD 07/23/2020 Overview: 07.18.2012: Asymptomatic. On Protonix. documented as of this encounter (statuses as of 03/29/2023) [facility]10-17-2020 History of Past illness Narrative* Problem [...] 260ms and 260ms) terminating VT. Transfer to [facility] on 06/20 Plan: Continue amiodarone 400 [...] pain 07/13/2012 07/16/2012 Overview: IV Fentanyl PRN, EXPORT PACKER, Lidoderm patches, Po pain meds Pulmonary insuff [...] papillary muscles and chordal apparatus Dual chamber COUNTY [employer] AGENT-D 0 Overview: On 07.14.12 -fired x6 for SVT/AF HRs 140-150 (pacer set at 130- any HR over that it recognizes as VT). EP consulted- will follow their recommendations (will continue po amio taper to control rate). Needs pacer check- Wednesday07.18.2012- will d/w EP about pacer check. H/o GERD 07/23/2020 Overview: 07.18.2012: Asymptomatic. On Protonix. documented as of this encounter (statuses as of 04/10/2023) [facility]10-17-2020 History of Past illness Narrative* Problem [...] 260ms and 260ms) terminating VT. Transfer to [facility] on 06/20 Plan: Continue amiodarone 400 [...] pain 07/13/2012 07/16/2012 Overview: IV Fentanyl PRN, EXPORT PACKER, Lidoderm patches, Po pain meds Pulmonary insuff [...] papillary muscles and chordal apparatus Dual chamber COUNTY A[employer]ICULTURAL AGENT-D 0 Overview: On 07.14.12 -fired x6 for SVT/AF HRs 140-150 (pacer set at 130- any HR over that it recognizes as VT). EP consulted- will follow their recommendations (will continue po amio taper to control rate). Needs pacer check- Wednesday07.18.2012- will d/w EP about pacer check. H/o GERD 07/23/2020 Overview: 07.18.2012: Asymptomatic. On Protonix. documented as of this encounter (statuses as of 04/22/2023) [facility]10-17-2020 History of Past illness Narrative* Problem [...] 260ms and 260ms) terminating VT. Transfer to [facility] on 06/20 Plan: Continue amiodarone 400 [...] pain 07/13/2012 07/16/2012 Overview: IV Fentanyl PRN, EXPORT PACKER, Lidoderm patches, Po pain meds Pulmonary insuff [...] papillary muscles and chordal apparatus Dual chamber COUNTY [employer] AGENT-D 0 Overview: On 07.14.12 -fired x6 for SVT/AF HRs 140-150 (pacer set at 130- any HR over that it recognizes as VT). EP consulted- will follow their recommendations (will continue po amio taper to control rate). Needs pacer check- Wednesday07.18.2012- will d/w EP about pacer check. H/o GERD 07/23/2020 Overview: 07.18.2012: Asymptomatic. On Protonix. documented as of this encounter (statuses as of 05/07/2023) [facility]10-17-[facility] History of Past illness Narrative* Problem [...] 260ms and 260ms) terminating VT. Transfer to [facility] on 06/20 Plan: Continue amiodarone 400 [...] pain 07/13/2012 07/16/2012 Overview: IV Fentanyl PRN, EXPORT PACKER, Lidoderm patches, Po pain meds Pulmonary insuff [...] papillary muscles and chordal apparatus Dual chamber COUNTY [employer] AGENT-D 0 Overview: On 07.14.12 -fired x6 for SVT/AF HRs 140-150 (pacer set at 130- any HR over that it recognizes as VT). EP consulted- will follow their recommendations (will continue po amio taper to control rate). Needs pacer check- Wednesday07.18.2012- will d/w EP about pacer check. H/o GERD 07/23/2020 Overview: 07.18.2012: Asymptomatic. On Protonix. documented as of this encounter (statuses as of 07/28/2023) [facility]10-17-[facility] History of Past illness Narrative* Problem [...] 260ms and 260ms) terminating VT. Transfer to [facility] on 06/20 Plan: Continue amiodarone 400 [...] pain 07/13/2012 07/16/2012 Overview: IV Fentanyl PRN, EXPORT PACKER, Lidoderm patches, Po pain meds Pulmonary insuff [...] papillary muscles and chordal apparatus Dual chamber [employer]ENT-D 0 Overview: On 07.14.12 -fired x6 for SVT/AF HRs 140-150 (pacer set at 130- any HR over that it recognizes as VT). EP consulted- will follow their recommendations (will continue po amio taper to control rate). Needs pacer check- Wednesday07.18.2012- will d/w EP about pacer check. H/o GERD 07/23/2020 Overview: 07.18.2012: Asymptomatic. On Protonix. documented as of this encounter (statuses as of 07/28/2023) [facility]10-17-2020 History of Past illness Narrative* Problem [...] 260ms and 260ms) terminating VT. Transfer to [facility] on 06/20 Plan: Continue amiodarone 400 [...] pain 07/13/2012 07/16/2012 Overview: IV Fentanyl PRN, EXPORT PACKER, Lidoderm patches, Po pain meds Pulmonary insuff [...] papillary muscles and chordal apparatus Dual chamber COUNTY [employer]ENT-D 0 Overview: On 07.14.12 -fired x6 for SVT/AF HRs 140-150 (pacer set at 130- any HR over that it recognizes as VT). EP consulted- will follow their recommendations (will continue po amio taper to control rate). Needs pacer check- Wednesday07.18.2012- will d/w EP about pacer check. H/o GERD 07/23/2020 Overview: 07.18.2012: Asymptomatic. On Protonix. documented as of this encounter (statuses as of 08/10/2023) [facility] Author Megan Hoskins [facility] March 30, 2024 4:36pm Note Date/Time March 30, 2024 4:3 6pm [facility] [address] [place] [address] Cardiology Consult Note Signed Patient: Essence Vincent MR#: [id number] : 1970 Acct:[id number] Age/Sex: 53 / F Adm Date: 4 Loc: Room: 3Q5388-0 Type: ADM INOo Attending Dr: Patrica Mcmahon MD Copies to: Amanda Grace APRN, BIOENGINEER MD Megan Mcarthur DO~ Cardiology HPI History of Present Illness Consult Date: 03/30/24 Reason for Consult: Ischemic cardiomyopathy, remote WA, remote MVR HPI: Ms. Vincent is a [...] have valve in valve mitral [facility]. She also has AICD biventricular pacemaker followed by Dr. Munson at [facility]. She has not seen me since 2021. Apparently she had her generator change with Dr. Margareth Nunez in 2023. She no longer follows withcardiology locally. I believe she is getting most of her cardiology care at [facility] electrophysiology care between [facility] and ?EM In any event, she has left [facility] Medical History (Updated 03/30/24 @ 16:35 by Megan Hoskins DO) Restless leg syndrome Anxiety Paroxysmal A-fib Deep vein thrombosis (DVT) Presence of combination internal cardiac defibrillator (ICD) and pacemaker Ventricular tachycardia (08/04/18) Hypotension CHF (congestive heart failure) Atrial thrombus Large clot found in heart at [facility]. COPD (chronic obstructive pulmonary disease) Myocardial [...] breath or wheezing 02/17/24 [History Confirmed 03/30/24] hamfvuuxrf-hulsqicdxqqek-dkuoekgq 50 mg-300 mg-40 mg capsule (Fioricet) 1 [...] 8.3 H Lymph # (Auto) N/A 1.6 [place] # (Auto) N/A 1.0 H Eos # [...] Code(s): I25.10 - Atherosclerotic heart disease of [place] coronary artery without angina pectoris (2) Ischemic [...] <Electronically signed by Megan Hoskins DO> 03/30/24 2824 [facility] Work Phone: evaluation note* Diagnosis Onset Date Resolution Status Afib acute Anemia acute CAD (coronary artery disease) acute Iron deficiency anemia acute Ischemic cardiomyopathy with implantable cardioverter-defibrillator (ICD) acute Palpitations acute Supratherapeutic INR acute Ventricular tachycardia acut e [facility] note[facility] [place] [facility] Other Evaluation noteNoWTFast Other Evaluation note* Diagnosis Onset Date Resolution Status KALLI (acute kidney injury) [place] Digoxin toxicity acute Elevated troponin I level [place] Hypotension acute Thrombocytopenia acute [facility] note[facility] assessment information available [facility] Work Phone: Evaluation note* Diagnosis Persistent atrial fibrillation (HCC)- Primary Atrial fibrillation documented in this encounter [facility] Diagnosis ICD (implantable cardioverter-defibrillator) battery depletion documented in this encounter [facility] Work Phone: Evaluation note* Diagnosis ICD (implantable cardioverter-defibrillator) battery depletion Elective replacement of implantable cardioverter-defibrillator (ICD) battery required- Primary Biventricular implantable cardioverter-defibrillator (ICD) in situ Biventricular implantable cardioverter-defibrillator (ICD) in situ Elective replacement of implantable cardioverter-defibrillator (ICD) battery required documented in this encounter [facility] Work Phone: Evaluation note* Diagnosis Elective replacement of implantable cardioverter-defibrillator (ICD) battery required- Primary Biventricular implantable cardioverter-defibrillator (ICD) in situ Elective replacement of implantable cardioverter-defibrillator (ICD) battery required Atrial tachycardia Other specified cardiac dysrhythmias Paroxysmal atrial fibrillation (CMS/HCC) Atrial fibrillation CAD (coronary artery disease) Coronary atherosclerosis of unspecified type of vessel, [place] or graft [place] (ventricular tachycardia) (CMS/HCC) Paroxysmal ventricular tachycardia Biventricular implantable cardioverter-defibrillator (ICD) in situ Biventricular implantable cardioverter-defibrillator (ICD) in situ Elective replacement of implantable cardioverter-defibrillator (ICD) battery required documented in this encounter [facility] Work Phone: Evaluation note* Diagnosis Hypokalemia- Primary Hypopotassemia Hypokalemia Hypopotassemia Dizziness Dizziness and giddiness Longstanding persistent atrial fibrillation (HCC) documented [facility] this [facility]* Diagnosis Longstanding persistent atrial fibrillation (HCC)- Primary documented [facility] this [facility]* Diagnosis Onset Date Resolution Status Cellulitis of face noneactiv e [facility] Work Phone: Evaluation note* Diagnosis Onset Date Resolution Status Generalized anxiety disorder acute Hypokalemia acute Right shoulder pain acute Right upper limb pain acute [facility] Work Phone: Evaluation note* Diagnosis Onset Date Resolution Status Atrial fibrillation acute Coronary artery disease acut e Generalized anxiety disorder acute GERD (gastroesophageal reflux disease) acute History of aneurysm acute History of WA (myocardial infarction) acute History of mitral valve replacement acute Hypokalemia acute Migraines acute Restless leg syndrome acute Right shoulder pain acute Right upper limb pain acute Depression acute Generalized anxiety disorder acute [facility] Work Phone: Evaluation note* Diagnosis Onset Date Resolution Status Atrial fibrillation acute Coronary artery disease acut e Generalized anxiety disorder acute GERD (gastroesophageal reflux disease) acute History of aneurysm acute History of WA (myocardial infarction) acute History of mitral valve replacement acute Hypokalemia acute Migraines acute Restless leg syndrome acute Right shoulder pain acute Right upper limb pain acute Contusion, upper arm acute Depression acute Generalized anxiety disorder acute Injury of right upper arm [place] Chest pain acute Heart palpitations acute [facility] Work Phone: Evaluation note* Diagnosis Onset Date Resolution Status Atrial fibrillation acute Coronary artery disease acut e Generalized anxiety disorder acute GERD (gastroesophageal reflux disease) acute History of aneurysm acute History of WA (myocardial infarction) acute History of mitral valve replacement acute Hypokalemia acute Migraines acute Restless leg syndrome acute Right shoulder pain acute Right upper limb pain acute Contusion, upper arm acute Depression acute Generalized anxiety disorder acute Injury of right upper arm [place] ASCVD (arteriosclerotic cardiovascular disease) acute Atrial thrombus [...] acute Ventricular tachycardia August 04, 2018 acute [facility] Work Phone: Evaluation note* Diagnosis Coronary artery disease involving [place] coronary artery of [place] heart, unspecified whether angina present- Primary Depressed mood in Alzheimer's disease (CMS-HCC) Renal artery stenosis ([facility]-HCC) Atherosclerosis of renal artery Restless leg syndrome Restless legs syndrome (RLS) Panic anxiety syndrome Panic disorder without agoraphobia Need for immunization against influenza Need for prophylactic vaccination and inoculation against influenza Other migraine without status migrainosus, not intractable [facility] Diagnosis Depressed mood in Alzheimer's disease (CMS-HCC) Panic anxiety syndrome Panic disorder without agoraphobia [facility] Diagnosis Biventricular implantable cardioverter-defibrillator (ICD) in situ- Primary Atrial tachycardia ([facility]-HCC) Other specified cardiac dysrhythmias Atherosclerosis of coronary artery bypass graft of [place] heart without angina pectoris Atrial flutter, unspecified type (Multi) Chronic systolic congestive heart failure (Multi) Ischemic cardiomyopathy Other specified forms of chronic ischemic heart disease Mixed hyperlipidemia Paroxysmal atrial fibrillation (Multi) Atrial fibrillation VT (ventricular tachycardia) (Multi) Paroxysmal ventricular tachycardia High risk medication use documented in this encounter [facility] Work Phone: Evaluation note* Diagnosis Biventricular implantable cardioverter-defibrillator (ICD) in situ documented in this encounter [facility] Work Phone: Evaluation note* Diagnosis Ventricular tachycardia ([facility]-HCC)- Primary Paroxysmal ventricular tachycardia Depression, unspecified depression type Insomnia, unspecified type Congestive heart failure, unspecified HF chronicity, unspecified heart failure type ([facility]) Overweight (BMI 25.0-29.9) Overweight Gastritis without bleeding, unspecified chronicity, unspecified gastritis type Colon cancer screening Special screening for malignant neoplasms, colon documented in this encounter [facility]* Diagnosis Insomnia, unspecified type [facility] Diagnosis Panic anxiety syndrome Panic disorder without agoraphobia documented in this encounter [facility] SystemHistory general Narrative - Reported* Type Description Date [...] see surgical hx Hospitalization History heart issues [place] [facility] Other History general Narrative - ReportedNocarondelet health DiBcom Other History general Narrative - Reported* Type [...] see surgical hx Hospitalization History heart issues [employer] Other History of Present illness Narrative* She is referred by Dr. Hoskins for evaluation for ablation of atrial flutter. * She has remote history of WA , cardiogenic shock, PCI circumflex and iABP, with persistent severe LV dysfunction. She later occluded her cicumflex. Years later, she had HF and severe MR and underwentmitral valve repair at [facility]. She had recurrent VT and atrial arrhythmias, and underwent several ablations and repeat percutaneous MVR at [facility]. After her MVR and ablation in [...] reviewed * Outside records: * Discharge summary [facility] Oct 2021 * Cardiology consult Oct 2021 * ECG Oct 2021 * H and P Oct 2021 * Echo Oct 2021. LVEF 15% * ECG: Today. Atrial flutter. LAD. QT 400 ms * See signed ECG and check /Paceart. * Imp / Plan * Paroxsymal atrial flutter. Mutliple ICD shocks. Shared decision making re: atrial flutter management. Preop cardiac evaluation performed. Medstory decision tool. She opts for EP study ablation of atrial flutter. Procedures, risks, benefits, and imponderables reviewed. Consented. * Chronic systolic heart failure. Stable NYHA III C HF. Reviewed meds. Continue meds. Refills. * Sustained VT s/p ablations at [facility]. No documentation of ablations available in chart at time of visit * CAD, chronic. See above. Reviewed meds. Continue meds. Refills. * Biventricular ICD for refractor heart failure. Medtronic [id number]. Reviewed device check. Followed at [facility]. * Preop cardiac eval. See [...] needed, treatment options, risks, benefits, and imponderables. [place] [employer] lifestyle changes and behavioral modification discussed. All questions answered in detail. Counseling over 50% visit regarding above. Patient appreciative of care. * Grammar * Please excuse grammatical or dictation errors as software dictation application being used. [facility] [address] DO Work Phone: Hospital Discharge instructions* Attachments The following attachments cannot be sent through Care Everywhere. * Hypokalemia ([place]) [facility] Additional Instructions It does not [...] Lovenox. They will tell you when to stop.[facility] Work Phone: Hospital Discharge instructionsAmbulatory Orders* Referral to Psychiatry Time Frame: 02/22/24, Location: None Selected [facility] Work Phone: Hospital Discharge instructions Additional Instructions Please have a PT/INR drawn on 04/03/24.[facility] Work Phone: InstructionsNot on filedocumented in this encounter [facility]ructionsNot on filedocumented in this encounter [facility]ructionsNot on filedocumented in this encounter [facility]ructionsNot on filedocumented in this encounter [facility]ructionsNot on filedocumented in this encounter [facility]ructionsNot on filedocumented in this encounter [facility]Not on filedocumented in this encounter [facility]InstructionsNot on filedocumented in this encounter [facility]ructionsNot on filedocumented in this encounter [facility] SystemInstructionsNot on filedocumented in this encounter [facility] SystemReason for referral (narrative)* Consultation (Routine) - Authorized Specialty Diagnoses / Procedures Referred By Purnima ferris Referred To Contact Cardiology Diagnoses Biventricular implantable cardioverter-defibrillator (ICD) in situ Paroxysmal atrial fibrillation (Multi) [place] (ventricular tachycardia) (Multi) Procedures Follow Up In Cardiology Jameel Valenzuela APRN-BIOENGINEER [address] [facility], [address] [address] Margareth Nunez MD [address] [facility], [address] [address] Referral ID Status Reason Start Date Expiration Date V isits Requested Visits Authorized [id number] Authorized 05/11/2024 05/11/2025 1 1 * Imaging (Routine) - Pending Review Specialty Diagnoses / Procedures Referred By Purnima ferris Referred To Contact Cardiology Diagnoses Biventricular implantable cardioverter-defibrillator (ICD) in situ Paroxysmal atrial fibrillation (Multi) [place] (ventricular tachycardia) (Multi) Procedures Cardiac Device Check - In Clinic Jameel Valenzuela APRN-BIOENGINEER [address] [facility], [address] [address] Referral ID Status Reason Start Date Expiration Date Visits Requested Visits Authorized [id number] Pending Review Perform Procedure 05/11/2024 05/11/2025 1 1 * PFT (Routine) - Pending Review Specialty Diagnoses / Procedures Referred By Purnima ferris Referred To Contact Diagnoses Biventricular implantable cardioverter-defibrillator (ICD) in situ Atrial tachycardia (CMS-HCC) Ischemic cardiomyopathy Paroxysmal atrial fibrillation (Multi) VT (ventricular tachycardia) (Multi) High risk medication use Procedures Complete Pulmonary Function Test (Spirometry/DLCO/Lung Volumes) Jameel Valenzuela APRN-CNP [address] [facility], [address] [address] Referral ID Status Reason Start Date Expiration Date V isits Requested Visits Authorized [id number] Pending Review 05/11/2024 05/11/2025 1 1 * Cardiovascular (Routine) - Authorized Specialty Diagnoses / Procedures Referred By Purnima ferris Referred To Contact Diagnoses Biventricular implantable cardioverter-defibrillator (ICD) in situ Procedures ECG 12 lead (Clinic Performed) Jameel Valenzuela APRN-CNP [address] [facility], [address] [address] Referral ID Status Reason Start Date Expiration Date V isits Requested Visits Authorized [id number] Authorized 05/11/2024 05/11/2025 1 1 [facility] Work Phone: Reason for visit [facility] nurse RC/waiting for referralW[place] [facility] Other Summary Purpose Family History Relationship Condition [...] Unknown brother Malignant neoplasm Unknown Advance Directives Documents on File Type Date Recorded 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 Advance Directive(s) 06/18/2020 4:28 PM [...] Documents on File Type Date Recorded 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] reflux disease) History of aneurysm History of WA (myocardial infarction) History of mitral valve replacement Hypokalemia Migraines Restless leg syndrome Right shoulder pain Right upper limb pain Depression Generalized anxiety disorder Chief Complaint ^ chest pain follow up [place] Chest pain Reason for Visit Atrial fibrillation Coronary artery disease Generalized anxiety disorder GERD (gastroesophageal reflux disease) History of aneurysm History of WA (myocardial infarction) History of mitral valve replacement [...] reflux disease) History of aneurysm History of WA (myocardial infarction) History of mitral valve replacement [...] pain acute Elevated troponin I level [place] Ischemic cardiomyopathy with implantable cardioverter-defibrillator (ICD) acute [...] acut e Chief Complaint Order sent to [facility] for testing due in patient referred by Dr. Hoskins for possible ablation. Seen at [facility] 11/04/2021atient is here today for a scheduled follow upAmiodarone Order sent to [facility] for testing due in May Reason for Referral Specialty Diagnoses / Procedures Referred By Purnima ferris Referred To Contact Cardiology Diagnoses Biventricular implantable cardioverter-defibrillator (ICD) in situ Procedures Cardiac Device Check - In Clinic Jameel Valenzuela E, ELECTRICIAN CONSTRUCTOR SUPERVISOR-BIOENGINEER [address] [facility], [address] [place] [address] Referral ID Status Reason Start Date Expiration Date Visits Requested Visits Authorized [id number] Pending Review Perform Procedure 04/24/2024 04/24/2025 1 1 Specialty Diagnoses / Procedures Referred By Contac t Referred To Contact Diagnoses Depressed mood in Alzheimer's disease ([facility]-HCC) Panic anxiety syndrome Red Strickland, DO [address], [place] [address] Referral ID Status Reason Start Date Expiration Date V isits Requested Visits Authorized [id number] Pending Review 05/31/2024 05/31/2025 1 1 Specialty Diagnoses / Procedures Referred By Contac t Referred To Contact Neurology Diagnoses Other migraine without status migrainosus, not intractable Red Strickland, [address] [address], [place] [address] Shayy Boo DO [address] [place] [address] Referral ID Status Reason Start Date Expiration Date Visits Requested Visits Authorized [id number] Pending Review Specialty Services Required 05/31/2024 05/31/2025 1 1 Specialty Diagnoses / Procedures Referred By Contac t Referred To Contact Pharmacist / Pharmacy Diagnoses Longstanding persistent atrial fibrillation (HCC) Norah Brand MD [address] [place] [address] [facility] [address] [place] [address] Referral ID Status Reason Start Date Expiration Date Visits Requested Visits Authorized [id number] Authorized Specialty Services Required 10/06/2023 10/05/2024 99 99 Scheduling Instructions [facility] Medication Management Question Answer New Start No Tx Agent Warfarin INR Goal 2.0-3.0 [3] Tx Duration Indefinite Comments Electronic signature for this referral acknowledges acceptance of entering into a collaborative practice agreement pursuant to Section 4729.39 of the [place] Revised Code. Specialty Diagnoses / Procedures Referred By Contac t Referred To Contact Cardiology Diagnoses ICD (implantable cardioverter-defibrillator) battery depletion Procedures Cardiac Device Check - In Clinic Margareth Nunez MD [address] [facility] [address], [address] [place] [address] Referral ID Status Reason Start Date Expiration Date Visits Requested Visits Authorized [id number] Pending Review Perform Procedure 3 07/26/2024 52 52 Additional Source Comments INFORMATION SOURCE (unrecogn ized section and content) DATE CREATED AUTHOR 10/19/2018 [facility] DATE CREATED AUTHOR AUTHOR'S ORGANIZ ATION 09/30/2021 [facility] [employer] [facility] DATE CREATED AUTHOR AUTHOR'S ORGANIZ ATION 02/07/2022 [facility] DATE CREATED AUTHOR AUTHOR'S ORGANIZ ATION 04/26/2022 [employer] DATE CREATED AUTHOR AUTHOR'S ORGANIZ ATION 02/06/2023 [facility] DATE CREATED AUTHOR AUTHOR'S ORGANIZ ATION 08/29/2023 [facility] DATE CREATED AUTHOR AUTHOR'S ORGANIZ ATION 09/30/2023 [facility] DATE CREATED AUTHOR AUTHOR'S ORGANIZ ATION 10/05/2023 [facility] DATE CREATED AUTHOR AUTHOR'S ORGANIZ ATION 10/14/2023 [facility] DATE CREATED AUTHOR AUTHOR'S ORGANIZ ATION 01/07/2024 [facility] DATE CREATED AUTHOR AUTHOR'S ORGANIZ ATION 08/21/2024 [facility] DATE CREATED AUTHOR AUTHOR'S ORGANIZ ATION 08/25/2024 [facility] DATE CREATED AUTHOR AUTHOR'S ORGANIZ ATION 08/26/2024 [facility] DATE CREATED AUTHOR AUTHOR'S ORGANIZ ATION 09/11/2024 [facility] Source Comments (unrecognize d section and content) In the event this informatio n is protected by the Federal Confidentiality of Alcohol and Drug Abuse Patient Records regulations: The Federal rules restrict any use of the information to criminally investigate or prosecute any alcohol or drug abuse patient.[facility] the event this information is protected by the Federal Confidentiality of Alcohol and Drug Abuse Patient Records regulations: The Federal rules restrict any use of the information to criminally investigate or prosecute any alcohol or drug abuse patient.[facility] the event this information is protected by the Federal Confidentiality of Alcohol and Drug Abuse Patient Records regulations: The Federal rules restrict any use of the information to criminally investigate or prosecute any alcohol or drug abuse patient.[facility] the event this information is protected by the Federal Confidentiality of Alcohol and Drug Abuse Patient Records regulations: The Federal rules restrict any use of the information to criminally investigate or prosecute any alcohol or drug abuse patient.[facility] the event this information is protected by the Federal Confidentiality of Alcohol and Drug Abuse Patient Records regulations: The Federal rules restrict any use of the information to criminally investigate or prosecute any alcohol or drug abuse patient.[facility] the event this information is protected by the Federal Confidentiality of Alcohol and Drug Abuse Patient Records regulations: The Federal rules restrict any use of the information to criminally investigate or prosecute any alcohol or drug abuse patient.[facility] the event this information is protected by the Federal Confidentiality of Alcohol and Drug Abuse Patient Records regulations: The Federal rules restrict any use of the information to criminally investigate or prosecute any alcohol or drug abuse patient.[facility] Hospital[facility] the event this information is protected by the Federal Confidentiality of Alcohol and Drug Abuse Patient Records regulations: The Federal rules restrict any use of the information to criminally investigate or prosecute any alcohol or drug abuse patient.[facility] the event this information is protected by the Federal Confidentiality of Alcohol and Drug Abuse Patient Records regulations: The Federal rules restrict any use of the information to criminally investigate or prosecute any alcohol or drug abuse patient.[facility] the event this information is protected by the Federal Confidentiality of Alcohol and Drug Abuse Patient Records regulations: The Federal rules restrict any use of the information to criminally investigate or prosecute any alcohol or drug abuse patient.[facility] Hospital[facility] the event this information is protected by the Federal Confidentiality of Alcohol and Drug Abuse Patient Records regulations: The Federal rules restrict any use of the information to criminally investigate or prosecute any alcohol or drug abuse patient.[facility] HospitalIn the event this information is protected by the Federal Confidentiality of Alcohol and Drug Abuse Patient Records regulations: The Federal rules restrict any use of the information to criminally investigate or prosecute any alcohol or drug abuse patient.[facility] HospitalIn the event this information is protected by the Federal Confidentiality of Alcohol and Drug Abuse Patient Records regulations: The Federal rules restrict any use of the information to criminally investigate or prosecute any alcohol or drug abuse patient.[facility] HospitalIn the event this information is protected by the Federal Confidentiality of Alcohol and Drug Abuse Patient Records regulations: The Federal rules restrict any use of the information to criminally investigate or prosecute any alcohol or drug abuse patient.[facility] HospitalIn the event this information is protected by the Federal Confidentiality of Alcohol and Drug Abuse Patient Records regulations: The Federal rules restrict any use of the information to criminally investigate or prosecute any alcohol or drug abuse patient.[facility] HospitalIn the event this information is protected by the Federal Confidentiality of Alcohol and Drug Abuse Patient Records regulations: The Federal rules restrict any use of the information to criminally investigate or prosecute any alcohol or drug abuse patient.[facility] HospitalIn the event this information is protected by the Federal Confidentiality of Alcohol and Drug Abuse Patient Records regulations: The Federal rules restrict any use of the information to criminally investigate or prosecute any alcohol or drug abuse patient.[facility] HospitalIn the event this information is protected by the Federal Confidentiality of Alcohol and Drug Abuse Patient Records regulations: The Federal rules restrict any use of the information to criminally investigate or prosecute any alcohol or drug abuse patient.[facility] HospitalIn the event this information is protected by the Federal Confidentiality of Alcohol and Drug Abuse Patient Records regulations: The Federal rules restrict any use of the information to criminally investigate or prosecute any alcohol or drug abuse patient.[facility] HospitalIn the event this information is protected by the Federal Confidentiality of Alcohol and Drug Abuse Patient Records regulations: The Federal rules restrict any use of the information to criminally investigate or prosecute any alcohol or drug abuse patient.[facility] Care Teams (unrecognized sec tion and content) Team Status: Active Member Role Status Dates Karen Garner MD Primary Care Provider Active Team Status: Active Member Role Status Dates Darian Smiley DO Attending Provider Active Start: November 29, 2003 Team Status: Inactive Member Role Status Dates Amanda Grace APRN STATION WORKER-C Primary Care Provider Active Start: November [...] January 24, 2024 End: January 24, 2024 Registration Manager Relationship Specialty Start Date End Date Birdie Alonso (Fax) PCP - General 04/16/10 Diane Hoskins [address] [place] [address] Physician Cardiology 10/13/18 Margareth Nunez [address] [place] [phone] Cardiology 10/14/18 Violeta Chan MD [address] [place] [address] Photoflash Powder Mixer Cardiology 07/04/20 Violeta Chan MD [address] [place] [address] Primary Staff Physician Cardiology 02/11/21 Registration Manager Relationship Specialty Start Date End Date Birdie Alonso (Fax) PCP - General 04/16/10 Diane Hoskins [address] [place] [address] Physician Cardiology 10/13/18 Margareth Nunez [address] [place] [phone] Cardiology 10/14/18 Violeta Chan MD [address] [place] [address] Photoflash Powder Mixer Cardiology 07/04/20 Violeta Chan MD [address] [place] [address] Primary Staff Physician Cardiology 02/11/21 Team Status: Active Member Role Status Dates Darian Smiley DO Attending Provider Active Team Status: Active Member Role Status Dates PHYSICIAN NO FAMILY Primary Care Provider Active Registration Manager Relationship Specialty Start Date End Date Birdie Alonso (Fax) PCP - General 04/16/10 Diane Hoskins [address] [place] [address] Physician Cardiology 10/13/18 Margareth Nunez MD Cardiology 10/14/18 Violeta Chan MD [address] [place] [address] Photoflash Powder Mixer Cardiology 07/04/20 Violeta Chan MD [address] [place] [address] Primary Staff Physician Cardiology 02/11/21 Registration Manager Relationship Specialty Start Date End Date Birdie Alonso (Fax) PCP - General 04/16/10 Diane Hoskins [address] [address] Physician Cardiology 10/13/18 Margareth Nunez MD [address] [address] Cardiology 10/14/18 Violeta Chan MD [address] [place] [address] Photoflash Powder Mixer Cardiology 07/04/20 Violeta Chan MD [address] [place] [address] Primary Staff Physician Cardiology 02/11/21 Registration Manager Relationship Specialty Start Date End Date Birdie Alonso (Fax) PCP - General 04/16/10 Diane Hoskins [address] [place] [address] Physician Cardiology 10/13/18 Margareth Nunez MD [address] [address] Cardiology 10/14/18 Violeta Chan MD [address] [place] [address] Photoflash Powder Mixer Cardiology 07/04/20 Violeta Chan MD [address] [place] [address] Primary Staff Physician Cardiology 02/11/21 Registration Manager Relationship Specialty Start Date End Date Birdie Alonso (Fax) PCP - General 04/16/10 Diane Hoskins [address] [place] [address] Physician Cardiology 2/14/19 Margareth Nunez MD [address] [address] Cardiology 10/14/18 Violeta Chan MD [address] [place] [address] Photoflash Powder Mixer Cardiology 07/04/20 Violeta Chan MD [address] [place] [address] Primary Staff Physician Cardiology 02/11/21 Registration Manager Relationship Specialty Start Date End Date Anju Cuevas, [facility] [address] [place] [address] Physician Oral & Maxillofacial Surgery 06/04/20 Registration Manager Relationship Specialty Start Date End Date Birdie Alonso (Fax) PCP - General 04/16/10 Diane Hoskins [address] [place] [address] Physician Cardiology 10/13/18 Margareth Nunez MD [address] [address] Cardiology 10/14/18 Violeta Chan MD [address] [place] [address] Photoflash Powder Mixer Cardiology 07/04/20 Violeta Chan MD [address] [place] [address] Primary Staff Physician Cardiology 02/11/21 Registration Manager Relationship Specialty Start Date End Date Birdie Alonso (Fax) PCP - General 04/16/10 Diane Hoskins [address] [address] Physician Cardiology 10/13/18 Margareth Nunez MD [address] [place] [address] Cardiology 10/14/18 Violeta Chan MD [address] [place] [address] Photoflash Powder Mixer Cardiology 07/04/20 Violeta Chan MD [address] [place] [address] Primary Staff Physician Cardiology 02/11/21 Registration Manager Relationship Specialty Start Date End Date Birdie Alonso (Fax) PCP - General 04/16/10 Diane Hoskins [address] [place] [address] Physician Cardiology 10/13/18 Margareth Nunez MD [address] [place] [address] Cardiology 10/14/18 Violeta Chan MD [address] [place] [address] Photoflash Powder Mixer Cardiology 07/04/20 Violeta Chan MD [address] [place] [address] Primary Staff Physician Cardiology 02/11/21 Registration Manager Relationship Specialty Start Date End Date Birdie Alonso (Fax) PCP - General 04/16/10 Diane Hoskins DO [address] [place] [address] Physician Cardiology 10/13/18 Margareth Nunez MD [address] [place] [address] Cardiology 10/14/18 Violeta Chan MD [address] [place] [address] Photoflash Powder Mixer Cardiology 07/04/20 Violeta Chan MD [address] [place] [address] Primary Staff Physician Cardiology 02/11/21 Registration Manager Relationship Specialty Start Date End Date Birdie Alonso (Fax) PCP - General 04/16/10 Diane Hoskins DO [address] [place] [address] Physician Cardiology 10/13/18 Margareth Nunez MD [address] [place] [address] Cardiology 10/14/18 Violeta Chan MD [address] [place] [address] Photoflash Powder Mixer Cardiology 07/04/20 Violeta Chan MD [address] [place] [address] Primary Staff Physician Cardiology 02/11/21 Registration Manager Relationship Specialty Start Date End Date AlonsoBirdie (Fax) PCP - General 04/16/10 Diane Hoskins DO [address] [place] [address] Physician Cardiology 10/13/18 Margareth Nunez MD [address] [place] [address] Cardiology 10/14/18 Violeta Chan MD [address] [place] [address] Photoflash Powder Mixer Cardiology 07/04/20 Violeta Chan MD [address] [place] [address] Primary Staff Physician Cardiology 02/11/21 Team Status: Active Member Role Status Dates Amanda Grace APRN STATION WORKER-Cici Primary Care Provider Active Team Status: Inactive Member Role Status Dates Margareth Nunez MD Attending Provider Active Amanda Grace APRN STATION WORKER-C Primary Care Provider Active Registration Manager Relationship Specialty Start Date End Date Birdie Alonso (Fax) PCP - General 04/16/10 Diane Hoskins DO [address] [place] [address] Physician Cardiology 10/13/18 Margareth Nunez MD [address] [place] [address] Cardiology 10/14/18 Violeta Chan MD [address] [place] [address] Photoflash Powder Mixer Cardiology 07/04/20 Violeta Chan MD [address] [place] [address] Primary Staff Physician Cardiology 02/11/21 Registration Manager Relationship Specialty Start Date End Date Shaikh Rojas MD [address] [place] [address] PCP - General 04/24/22 Jameel Valenzuela, ELECTRICIAN CONSTRUCTOR SUPERVISOR-BIOENGINEER [address] [facility], [address] [address] Nurse Practitioner Cardiology 09/02/23 Margareth Nunez MD [address] [facility], [address] [address] Consulting Physician Cardiology 09/02/23 Registration Manager Relationship Specialty Start Date End Date Shaikh Rojas MD [address] [place] [phone] PCP - General 04/24/22 Jameel Valenzuela, ELECTRICIAN CONSTRUCTOR SUPERVISOR-BIOENGINEER [address] [facility], [address] [place] [address] Nurse Practitioner Cardiology 09/02/23 Margareth Nnuez MD [address] [facility], [address] [place] [address] Consulting Physician Cardiology 09/02/23 Registration Manager Relationship Specialty Start Date End Date Liam Hyman MD [address] [facility] [place] [address] PCP - General Family Medicine 09/29/23 Jameel Valenzuela, ELECTRICIAN CONSTRUCTOR SUPERVISOR-BIOENGINEER [address] [facility], [address] [place], [place] [id number] Nurse Practitioner Cardiology 09/02/23 Margareth Nunez MD [address] [facility], [address] [place] [address] Consulting Physician Cardiology 09/02/23 Registration Manager Relationship Specialty Start Date End Date Liam Hyman MD [address] [facility] [place] [phone] PCP - General Family Medicine 10/11/23 Registration Manager Relationship Specialty Start Date End Date Liam Hyman MD [address] [facility] [place] [phone] PCP - General Family Medicine 10/11/23 Team Status: Active Member Role Status Dates Karen Garner MD Primary Care Provider Active Start: February 17, 2024 Lina Martin DO Attending Provider Active Start: February 17, 2024 Team Status: Inactive Member Role Status Dates Karen Garner MD Primary Care Provider Active Start: February 18, 2024 End: February 18, 2024 Amanda Grace APRN STATION WORKER-C Attending Provider Act mayo Start: February 18, 2024 End: February 18, 2024 Team Status: Inactive Member Role Status Dates Karen Garner MD Primary Care Provider Active Start: February 22, 2024 End: February 22, 2024 Amanda Grace APRN STATION WORKER-C Attending Provider Act mayo Start: February 22, 2024 End: February 22, 2024 Team Status: Active Member Role Status Dates Pedro Melo DO Emergency Provider Active Start: March 30, 2024 Amanda Grace APRN STATION WORKER-C Primary Care Provider Active Start: March 30, 2024 Kendrick Jorgensen MD Admit Provider, Atte nding Provider Active Start: March 30, 2024 Team Status: Inactive Member Role Status Dates Pedro Melo DO Emergency Provider Active Start: March 30, 2024 End: March 30, 2024 Amanda Grace APRN STATION WORKER-C Primary Care Provider Active Start: March 30, 2024 End: March 30, 2024 Kendrick Jorgensen MD Admit Provider Active Start: 2023 End: March 30, 2024 Patrica Mcmahon MD Attending Provider Active Start: March 30, 2024 End: March 30, 2024 Registration Manager Relationship Specialty Start Date End Date Red Strickland DO [address] [place] [address] PCP - General Family Medicine 05/31/24 Registration Manager Relationship Specialty Start Date End Date Red Strickland DO [address] [place] [address] PCP - General Family Medicine 05/31/24 Registration Manager Relationship Specialty Start Date End Date Red Strickland DO [address], [place] [address] PCP - General Family Medicine 05/31/24 Registration Manager Relationship Specialty Start Date End Date Red Strickland DO [address], [place] [address] PCP - General Family Medicine 05/31/24 Registration Manager Relationship Specialty Start Date End Date Red Strickland DO [address], [place] [address] PCP - General Family Medicine 05/31/24 Registration Manager Relationship Specialty Start Date End Date Red Strickland DO [address], [place] [address] PCP - General Family Medicine 05/31/24 Registration Manager Relationship Specialty Start Date End Date Red Strickland DO [address], [place] [address] PCP - General Family Medicine 05/31/24 Registration Manager Relationship Specialty Start Date End Date Liam Hyman MD [address] [place] [address] [place] [address] PCP - General Family Medicine 09/29/23 Jameel Valenzuela APRN-BIOENGINEER [address] [facility], [address] [address] Nurse Practitioner Cardiology 09/02/23 Margareth Nunez MD [address] [facility], [address] [address] Consulting Physician Cardiology 09/02/23 Registration Manager Relationship Specialty Start Date End Date Liam Hyman MD [address] [place] [address] [place] [address] PCP - General Family Medicine 09/29/23 Jameel Valenzuela APRN-BIOENGINEER [address] [facility], [address] [place] [address] Nurse Practitioner Cardiology 09/02/23 Margareth Nunez MD [address] [facility], [address] [place] [address] Consulting Physician Cardiology 09/02/23 Registration Manager Relationship Specialty Start Date End Date TaliaRedDO [address], [place] [address] PCP - General Family Medicine 05/31/24 Registration Manager Relationship Specialty Start Date End Date Talia Redjames Case DO [address], [place] [address] PCP - General Family Medicine 05/31/24 Registration Manager Relationship Specialty Start Date End Date Talia Redjames Case DO [address], [place] [address] PCP - General Family Medicine 05/31/24 REASON FOR VISIT (unrecogniz ed section and content) Reason Onset Date Comments Opened In Error 07/27/2022 Reason Comments Research IRB [id number] Specialty Diagnoses / Procedures Referred By Contac t Referred To Contact Cardiology Diagnoses ICD (implantable cardioverter-defibrillator) battery depletion Procedures Cardiac Device Check - In Clinic Margareth Nunez MD [address] [facility], [address] [place] [address] Referral ID Status Reason Start Date Expiration Date Visits Requested Visits Authorized [id number] Pending Review Perform Procedure 3 07/26/2024 52 52 Specialty Diagnoses / Procedures Referred By Contac t Referred To Contact Diagnoses Biventricular implantable cardioverter-defibrillator (ICD) in situ Elective replacement of implantable cardioverter-defibrillator (ICD) battery required Biventricular implantable cardioverter-defibrillator (ICD) in situ [Z95.810] Elective replacement of implantable cardioverter-defibrillator (ICD) battery required [Z95.810] Procedures MD RMVL IMPLTBL DFB PLS GEN W/RPLCMT PLS GEN CATALYST PLANT SUPERVISOR LD ICD BIV Generator Change Out Margareth Nunez MD [address] [facility] Bldg, [address] [place] [address] [facility] [address] [place] [address] Referral ID Status Reason Start Date Expiration Date Visits Re quested Visits Authorized [id number] 1 1 Reason Comments Dizziness Specialty Diagnoses / Procedures Referred By Purnima ferris Referred To Contact Diagnoses Hypokalemia Dizziness Norah Brand MD [address] [place] [address] [facility] [address] [place] [address] Referral ID Status Reason Start Date Expiration Date Visits Re quested Visits Authorized [id number] 1 1 Specialty Diagnoses / Procedures Referred By Purnima t Referred To Contact Pharmacist / Pharmacy Diagnoses Longstanding persistent atrial fibrillation (HCC) Norah Brand MD [address] [place] [address] [facility] Medication Mgmt [address] [place] [address] Referral ID Status Reason Start Date Expiration Date Visits Requested Visits Authorized [id number] Authorized Specialty Services Required 10/06/2023 10/05/2024 99 99 Reason Comments New Patient Reason Onset Date Comments Med Refill 06/08/2024 Reason Onset Date Comments Med Refill 07/25/2024 Reason Comments Med Refill Reason Comments Follow-up Pt is here today fol lowing up after 9 months post ICD insertion Specialty Diagnoses / Procedures Referred By Purnima t Referred To Contact Diagnoses Biventricular implantable cardioverter-defibrillator (ICD) in situ Procedures ECG 12 lead (Clinic Performed) Jameel Valenzuela, ELECTRICIAN CONSTRUCTOR SUPERVISOR-BIOENGINEER [address] [facility] [facility] [address] [place] [address] Referral ID Status Reason Start Date Expiration Date V isits Requested Visits Authorized [id number] Authorized 05/11/2024 05/11/2025 1 1 Specialty Diagnoses / Procedures Referred By Contac t Referred To Contact Cardiology Diagnoses Biventricular implantable cardioverter-defibrillator (ICD) in situ Procedures Cardiac Device Check - In Clinic Jameel Valenzuela Jose, ELECTRICIAN CONSTRUCTOR SUPERVISOR-BIOENGINEER [address] [facility] [address] [place] [address] Referral ID Status Reason Start Date Expiration Date Visits Requested Visits Authorized [id number] Pending Review Perform Procedure 04/24/2024 04/24/2025 1 1 Reason Comments Follow-up From [facility]. AUG 07-, having pacemaker issues. Reason Comments Med Change Request Goals (unrecognized section and content) Goals may [...] (Continued by Anesthesia - Provider: Sy Gastelum APRN-STRUCTURAL DRAFTSMAN)0937 (Due: Stopped - Provider: Yessi Miller, PETE-BIOENGINEER)0948 (Anesthesia Volume Adjustment - Provider: Sy Gastelum APRN-STRUCTURAL DRAFTSMAN) PRN Medication Order 09/27/2023 09/28/2023 09/29/2023 acetaminophen [...] Cesar RN)0915 (Given - Provider: Sy Gastelum, ELECTRICIAN CONSTRUCTOR SUPERVISOR-STRUCTURAL DRAFTSMAN) potassium chloride 20 mEq in 100 mL [...] Discontinued 1043 (Given - Provider: Yvette Alatorre, NAYLA) 0844 (Given - Provider: Brenda Martinez, NAYLA) atorvastatin (LIPITOR) tablet 80 mg 80 mg, Oral, NIGHTLY, First dose on Wed10/06/23 at 0100, Until Discontinued 005 (Given - Provider: Tevin Gauthier, NAYLA)220 (Given - Provider: Dennis Bustos RN) 2100 (Due) cefTRIAXone (ROCEPHIN) 1,000 mg in sodium chloride 0.9 % 50 mL IVPB (mini-bag) (COMPLETED) 1,000 mg, IntraVENous, ONCE, 1 dose, On Wed10/05/23 at 2300, Antimicrobial Indications: Urinary Tract Infection 232 (New Bag - Provider: Patrice Lonny, RN) 0037 (Stopped - Provider: Tevin Gauthier [...] invasive procedure. 0056 (Given - Provider: Tevin Gauthier, RN)1314 (Given - Provider: Yvette Alatorre RN - Comment: Pt gave herself as patient education)2203 (Given - Provider: Denins Bustso, NAYLA) 0900 (Due)2100 (Due) FLUoxetine (PROZAC) capsule [...] RN)2204 (Given - Provider: Dennis Bustos, NAYLA) 1139 (Given - Provider: Brenda Martinez RN)2100 (Due) traZODone (DESYREL) tablet 50 mg 50 mg, Oral, NIGHTLY, First dose on Wed10/06/23 at 0100, Until Discontinued 55 (Given - Provider: Tevin Gauthier RN)2203 (Given - Provider: Dennis Bustos RN) 2100 (Due) warfarin (COUMADIN) tablet 7.5 mg [...] RT Bronchodilator Protocol: Yes - Inpatient Protocol xvgaebzxoa-IGME-pvvqnrnd 50-300-40 MG per capsule 1 capsule 1 [...] on Wed10/05/23 at 2133, Until Wed10/05/23 at 2152, Other 2152 (Given - Provider: Mavis Marcum) LORazepam (ATIVAN) tablet 0.5 mg 0.5 mg, Oral, 3 TIMES DAILY PRN, Starting on Wed10/06/23 at 0034, Until Discontinued, Anxiety 0056 (Given - Provider: Tevin Gauthier, RN)1043 (Given - Provider: Yvette Alatorre, RN)2022 (Given - Provider: Dennis Bustos, RN) 448 (Given - Provider: Dennis Bustos, NAYLA) [...] Tevin Gauthier, NAYLA)0134 (Stopped - Provider: Tevin aGuthier, NAYLA) sodium chloride flush 0.9 % injection [...] BE BASED ON THE PRIMARY CLINICAL RECORDS. [facility]. provides no warranty or guarantee of the accuracy or completeness of information in this document.
[2024-09-30 09:32] LABS: Bilirubin Urine NEGATIVE (NEGATIVE); Blood Urine SMALL (NEGATIVE); Clarity Urine CLEAR (CLEAR); Color Urine LT. YELLOW (YELLOW); Glucose Urine UA NEGATIVE (NEGATIVE); Ketones Urine NEGATIVE (NEGATIVE); Leukocyte Esterase Urine NEGATIVE (NEGATIVE); Nitrite Urine NEGATIVE (NEGATIVE); Protein Urine NEGATIVE (NEG/TRACE); Urobilinogen Urine 0.2 EU/dL (0.2-1.0); pH Urine 5.5 (5.0-9.0)
[2024-09-30 09:33] LABS: Urine Microscopic Indicated YES
[2024-09-30 09:34] LABS: Hematocrit 41.9 % (36.0-48.0); Mean Corpuscular Hemoglobin 23.2 pg (26.7-34.0); Mean Corpuscular Volume 74.7 fL (81.0-99.0); Platelet Count 149 10^3/uL (150-450); Red Blood Count 5.61 10^6/uL (4.20-5.40); Red Cell Distribution Width 23.6 % (11.0-15.0); White Blood Count 19.5 10^3/uL (4.0-11.0)
[2024-09-30 09:39] LABS: Bacteria Urine TRACE #/HPF (NONE SEEN); Cast Seen? SEEN #/LPF (NONE SEEN); Crystals Seen? None Seen #/HPF (None Seen); Hyaline Casts Urine FEW; Mucus Urine NONE SEEN (NONE SEEN); Squamous Epithelial Cell Urine MODERATE #/LPF (NONE/RARE); Urine Culture Indicated NO; WBC Urine 0-2 #/HPF (NONE SEEN)
[2024-09-30 09:46] LABS: Alanine Aminotransferase 16 U/L (14-59); Albumin Globulin Ratio 0.8; Albumin Level 3.6 g/dL (3.4-5.0); Alkaline Phosphatase 212 U/L (46-116); Anion Gap 16.2; Aspartate Amino Transferase 27 U/L (15-37); BUN Creatinine Ratio 12.9; Bilirubin Total 0.9 mg/dL (0.2-1.0); Calcium 8.8 mg/dL (8.5-10.1); Carbon Dioxide 26.2 mmol/L (21.0-32.0); Chloride 98 mmol/L (98-107); Estimated GFR (African America 48 (>=60 mL/min/1.73m^2); Estimated GFR (Non-African Ame 39 (>=60 mL/min/1.73m^2); Globulin 4.3 g/dL; Glucose 100 mg/dL (74-106); Potassium 3.4 mmol/L (3.5-5.1); Sodium 137 mmol/L (136-145); Total Protein 7.9 g/dL (6.4-8.2)
[2024-09-30 09:54] LABS: Basophils Abs Manual 0.19 10^3/uL (0.00-0.10); Eosinophils Absolute Manual 0.58 10^3/uL (0.00-0.70); Lymphocytes Absolute Manual 2.14 10^3/uL (1.20-3.80); Monocytes Absolute Manual 1.75 10^3/uL (0.30-0.80); Segmented Neut Absolute Manual 14.82 10^3/uL (1.4-6.5)
[2024-09-30 09:55] LABS: Anisocytosis 3+
--- NOTE | 2024-09-30 10:59 | ED.GENADUL1 ---
HPI HPI - General Adult General Chief complaint: Urogenital-Female Stated complaint: POSSIBLE KIDNEY STONE Time Seen by Provider: 09/30/24 09:00 Source: patient Limitations: no limitations History of Present Illness HPI narrative: The patient is coming to the ER complaining of 4 days history of right-sided flank pain, she mentioned that she also is not urinating as much as she used to before and she take Lasix, the patient mentioned that she have history of congestive heart failure and she noted for the last 4 days that she is not urinating as much as she used to with her, Lasix though she is drinking water she have no nausea no vomiting , The patient have the right side pain she is pointing to the lower back mostly to the right but going to her sacral area, she have a scar of previous surgery there, mentioned that the pain does not radiate to her groin and it is not associated with any nausea or vomiting, there is no fever or chills The patient have a history of cholecystectomy and appendectomy Related Data Home Medications ?Medication ?Instructions ?Recorded ?Confirmed atorvastatin 80 mg tablet 80 mg PO .QHS 03/18/23 05/27/24 isosorbide mononitrate 30 mg 30 mg PO DAILY 03/18/23 05/26/24 tablet,extended release 24 hr levothyroxine 75 mcg tablet 75 mcg PO DAILY 03/18/23 05/26/24 nitroglycerin 0.4 mg sublingual 0.4 mg sublingual Q5M PRN chest 03/18/23 05/26/24 tablet pain omeprazole 40 mg capsule,delayed 40 mg PO DAILY 03/18/23 05/26/24 release trazodone 50 mg tablet 50 mg PO QPM 03/18/23 05/26/24 warfarin 5 mg tablet 5 mg PO DAILY 03/18/23 05/26/24 albuterol sulfate 90 mcg/actuation 1 puff inhalation Q6H PRN SOB 05/07/23 05/26/24 aerosol inhaler metoprolol succinate 100 mg 100 mg PO .qhs 05/07/23 05/27/24 tablet,extended release 24 hr hydroxyzine HCl 10 mg tablet 10 mg PO TID PRN anxiety 04/27/24 05/27/24 olanzapine 2.5 mg tablet 5 mg PO .QHS 04/27/24 05/27/24 sertraline 50 mg tablet 50 mg PO DAILY 04/27/24 05/27/24 lorazepam 0.5 mg tablet 0.5 mg PO DAILY PRN anxiety 05/27/24 05/27/24 ropinirole 0.25 mg tablet 0.25 mg PO QPM 05/27/24 05/27/24 ropinirole 0.25 mg tablet 0.5 mg PO .qhs 05/27/24 05/27/24 torsemide 20 mg tablet 20 mg PO BIDWM 05/27/24 05/27/24 Previous Rx's ?Medication ?Instructions ?Recorded amiodarone 200 mg tablet (Pacerone) 200 mg PO QD #30 tabs 05/20/23 methocarbamol 750 mg tablet 750 mg PO TID PRN pain #20 tabs 05/23/24 potassium chloride 20 mEq 20 meq PO BID #0 tabs 05/28/24 tablet,extended release(part/cryst) topiramate 25 mg tablet (Topamax) 25 mg PO BID #60 tabs 05/28/24 methylprednisolone 4 mg tablets in 4 mg PO DAILY #21 ea 09/30/24 a dose pack (Medrol (Kun)) oxycodone-acetaminophen 5 mg-325 1 tab PO Q8H PRN pain 3 days #9 09/30/24 mg tablet (Percocet) tabs Allergies Allergy/AdvReac Type Severity Reaction Status Date / Time erythromycin base Allergy Unknown Unknown Verified 05/26/24 19:58 ondansetron (From Zofran) AdvReac tachycardia Verified 05/26/24 19:58 Opioid HPI Opioid Management Most Recent Opioid Data: Last Pain Scale 8 09/30/24 09:24 09/30/24 Last Pain Intensity 8 05/27/24 12:16 05/27/24 Last MAR Pain Assessment 09/30/24 09:24 Last ORT Total Score 0 05/27/24 01:24 05/27/24 Last ORT Risk Category Low Risk 05/27/24 01:24 05/27/24 Review of Systems ROS Status of ROS 10 or more systems reviewed and unremarkable except as noted in history and below 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 (ICD-10) Tension headache ?G44.209 - Tension-type headache, unspecified, not intractable (ICD-10) Chronic wound of head ?S01.90XA - Unspecified open wound of unspecified part of head, initial encounter (ICD-10) Heat exhaustion ?T67.5XXA - Heat exhaustion, unspecified, initial encounter (ICD-10) Headache ?R51.9 - Headache, unspecified (ICD-10) Abscess of skin or subcutaneous tissue ?L02.91 - Cutaneous abscess, unspecified (ICD-10) Other medical devices associated with adverse incidents ?Y82.8 - Other medical devices associated with adverse incidents (ICD-10) Anxiety ?F41.9 - Anxiety disorder, unspecified (ICD-10) Chest pain ?R07.9 - Chest pain, unspecified (ICD-10) Infection of scalp ?L08.9 - Local infection of the skin and subcutaneous tissue, unspecified (ICD-10) Ankle sprain ?S93.409A - Sprain of unspecified ligament of unspecified ankle, initial encounter (ICD-10) Generalized anxiety disorder ?F41.1 - Generalized anxiety disorder (ICD-10) Lactic acidosis ?E87.20 - Acidosis, unspecified (ICD-10) Fluid overload ?E87.70 - Fluid overload, unspecified (ICD-10) Nausea ?R11.0 - Nausea (ICD-10) Generalized weakness ?R53.1 - Weakness (ICD-10) ANTONINA (generalized anxiety disorder) ?F41.1 - Generalized anxiety disorder (ICD-10) RLS (restless legs syndrome) ?G25.81 - Restless legs syndrome (ICD-10) Hypothyroid ?E03.9 - Hypothyroidism, unspecified (ICD-10) Hyperlipidemia ?E78.5 - Hyperlipidemia, unspecified (ICD-10) CAD (coronary artery disease) ?I25.10 - Atherosclerotic heart disease of [place] coronary artery without angina pectoris (ICD-10) Paroxysmal atrial fibrillation ?I48.0 - Paroxysmal atrial fibrillation (ICD-10) Chronic HFrEF (heart failure with reduced ejection fraction) ?I50.22 - Chronic systolic (congestive) heart failure (ICD-10) Hypertension ?I10 - Essential (primary) hypertension (ICD-10) Rheumatic fever ?I00 - Rheumatic fever without heart involvement (ICD-10) Pacemaker ?Z95.0 - Presence of cardiac pacemaker (ICD-10) Myocardial infarct, old ?I25.2 - Old myocardial infarction (ICD-10) Multifocal pneumonia ?J18.9 - Pneumonia, unspecified organism (ICD-10) CHF (congestive heart failure) ?I50.9 - Heart failure, unspecified (ICD-10) Acute torticollis ?M43.6 - Torticollis (ICD-10) Fracture of head of humerus with routine healing ?S42.293D - Other displaced fracture of upper end of unspecified humerus, subsequent encounter for fracture with routine healing (ICD-10) Closed head injury ?S09.90XA - Unspecified injury of head, initial encounter (ICD-10) Fall from chair ?W07.XXXA - Fall from chair, initial encounter (ICD-10) Surgical History History of hysterectomy ?Z90.710 - Acquired absence of both cervix and uterus (ICD-10) Mitral valve replaced ?Z95.2 - Presence of prosthetic heart valve (ICD-10) Family History Grandmother Family history of CHF (congestive heart failure) Family history of cancer Family history of hypertension Father Family history of COPD (chronic obstructive pulmonary disease) Family history of cancer Family history of diabetes mellitus Family history of hypertension Sister Family history of COPD (chronic obstructive pulmonary disease) Mother Family history of cancer Family history of hypertension Family history of myocardial infarction Family history of stroke Brother Family history of cancer Grandfather Family history of cancer Social History Within the past year, how often did you have a drink containing alcohol: never Score interpretation: A score less than 3 is consistent with normal alcohol consumption. Smoking status: Former smoker Non-prescribed substance use: denies use Little interest or pleasure in doing things: not at all Feeling down, depressed, or hopeless: not at all Exam Narrative Exam Narrative: Nurses notes and vital signs reviewed and patient is not hypoxic. General: Well-appearing and in no apparent distress. Skin: Warm, dry, no pallor noted. No rash. Head: Normocephalic, atraumatic. Neck: Supple, non-tender. Eye: Pupils are equal, round and EOMI. No scleral icterus. Ears, Nose, Mouth, and Throat: TM are clear, no nasal mucosal hypertrophy. Oral mucosa is moist, no posterior oropharynx erythema, uvula is mid-line Cardiovascular: Regular Rate and Rhythm without murmur, gallop or rub. Respiratory: No accessory muscle use or respiratory distress. Lungs are clear to auscultation, no wheezing, rales or rhonchi Chest Wall: no tenderness Back: The patient tenderness mostly toward the lumbar level more than the right flank, there is no obvious rash I could see and the patient does have a scar in the lumbar area from previous surgery. According to the patient the pain goes down to her sacrum as well sometimes Musculoskeletal: normal ROM, no calf or popliteal tenderness, no lower extremity edema/swelling GI: Abdomen is soft, non-distended. Normal bowel sounds. No masses appreciated. No tenderness to palpation. No rebound, guarding, or rigidity noted. Neurological: A&O x4. No cranial nerve dysfunction observed. No truncal ataxia. Moves all extremities. Sensation intact. Psychiatric: Cooperative and interactive. Normal mood and affect. Constitutional Vital Signs, click to edit/add: Last Vital Signs Temp 98.1 F 09/30/24 08:56 Pulse 82 09/30/24 08:56 Resp 18 09/30/24 08:56 BP 116/72 09/30/24 08:56 Pulse Ox 98 09/30/24 08:56 O2 Del Method Room Air 09/30/24 08:56 Course Vital Signs Vital signs: Vital Signs Temperature 98.1 F 09/30/24 08:56 Pulse Rate 82 09/30/24 08:56 Respiratory Rate 18 09/30/24 08:56 Blood Pressure 116/72 09/30/24 08:56 Pulse Oximetry 98 09/30/24 08:56 Oxygen Delivery Method Room Air 09/30/24 08:56 Temperature 98.1 F 09/30/24 08:56 Pulse Rate 82 09/30/24 08:56 Respiratory Rate 18 09/30/24 08:56 Blood Pressure 116/72 09/30/24 08:56 Pulse Oximetry 98 09/30/24 08:56 Oxygen Delivery Method Room Air 09/30/24 08:56 Medical Decision Making MDM Narrative Medical decision making narrative: There was no history of fall or trauma the patient pain was right-sided according to her history She had a CBC that showed leukocytosis of the urine showed no infection Chemistry was within normal It was noted that the patient had a previous white blood cell elevation on previous blood workup since April last year. There was no signs of infection today with fever or chills and her pain with a CAT scan showing no acute pathology regarding the right kidney. The patient pain mostly secondary to her back surgery The patient was provided with morphine after which she was feeling some improvement. Patient discharged home with Medrol Dosepak Percocet for 3 days , patient was informed of the white blood cell being elevated and the fact that I could not find any infection and with her previous blood workup showing some leukocytosis she was instructed that she is to follow-up with her primary care Patient understand that in case of any increasing pain or any fevers she is to come back to the ER Patient have no alarming symptoms and no fall or trauma The patient is to follow up with primary care physician in next 2-3 days or to return to the emergency department should any of the signs or symptoms worsen or new symptoms develop. The patient agrees with the following Diagnosis and Treatment plan and the patient will be discharged home. Lab Data Labs: Lab Results 09/30/24 Range/Units 09:15 WBC 19.5 H (4.0-11.0) 10^3/uL RBC 5.61 H (4.20-5.40) 10^6/uL Hgb 13.0 (12.0-16.0) g/dL Hct 41.9 (36.0-48.0) % MCV 74.7 L (81.0-99.0) fL MCH 23.2 L (26.7-34.0) pg MCHC 31.0 (29.9-35.2) g/dL RDW 23.6 H (11.0-15.0) % Plt Count 149 L (150-450) 10^3/uL MPV Architecture Consultant Seg Neuts % (Manual) 76.0 H (43.0-75.0) Lymphocytes % (Manual) 11.0 L (20.5-60.0) % Monocytes % (Manual) 9.0 (1.7-12.0) % Eosinophils % (Manual) 3.0 (0.9-7.0) % Basophils % (Manual) 1.0 (0.2-2.0) % Neutrophils # (Manual) 14.82 H (1.4-6.5) 10^3/uL Lymphocytes # (Manual) 2.14 (1.20-3.80) 10^3/uL Monocytes # (Manual) 1.75 H (0.30-0.80) 10^3/uL Eosinophils # (Manual) 0.58 (0.00-0.70) 10^3/uL Basophils # (Manual) 0.19 H (0.00-0.10) 10^3/uL Anisocytosis 3+ Sodium 137 (136-145) mmol/L Potassium 3.4 L (3.5-5.1) mmol/L Chloride 98 (98-107) mmol/L Carbon Dioxide 26.2 (21.0-32.0) mmol/L Anion Gap 16.2 BUN 18.0 (7.0-18.0) mg/dL Creatinine 1.39 H (0.55-1.02) mg/dL Est GFR ( Amer) 48 L (>=60 mL/min/1.73m^2) Est GFR (Non-Af Amer) 39 L (>=60 mL/min/1.73m^2) BUN/Creatinine Ratio 12.9 Glucose 100 (74-106) mg/dL Calcium 8.8 (8.5-10.1) mg/dL Total Bilirubin 0.9 (0.2-1.0) mg/dL AST 27 (15-37) U/L ALT 16 (14-59) U/L Alkaline Phosphatase 212 H (46-116) U/L Total Protein 7.9 (6.4-8.2) g/dL Albumin 3.6 (3.4-5.0) g/dL Globulin 4.3 g/dL Albumin/Globulin Ratio 0.8 Lipase 26.0 (16.0-77.0) U/L Urine Color Lt. yellow (YELLOW) Urine Clarity Clear (CLEAR) Urine pH 5.5 (5.0-9.0) Ur Specific Watson 1.010 (1.005-1.025) Urine Protein Negative (NEG/TRACE) mg/dL Urine Glucose (UA) Negative (NEGATIVE) mg/dL Urine Ketones Negative (NEGATIVE) mg/dL Urine Occult Blood Small A (NEGATIVE) Urine Nitrite Negative (NEGATIVE) Urine Bilirubin Negative (NEGATIVE) Urine Urobilinogen 0.2 (0.2-1.0) EU/dL Ur Leukocyte Esterase Negative (NEGATIVE) Urine RBC 2-5 A (0-2) #/HPF Urine WBC 0-2 A (NONE SEEN) #/HPF Ur Squamous Epith Cells Moderate A (NONE/RARE) #/LPF Urine Crystals None seen (None Seen) #/HPF Urine Bacteria Trace A (NONE SEEN) #/HPF Urine Casts Seen A (NONE SEEN) #/LPF Hyaline Casts Few Urine Mucus None seen (NONE SEEN) Ur Culture Indicated? No Discharge Plan Discharge Stand Alone Forms: Portal Instructions Chief Complaint: Urogenital-Female Clinical Impression: Back pain, Flank pain, Leukocytosis Patient Disposition: Home, Self-Care Time of Disposition Decision: 10:52 Condition: Good Prescriptions / Home Meds: New methylprednisolone [Medrol (Kun)] 4 mg tablets,dose pack 4 mg PO DAILY Qty: 21 0RF Rx Instructions: please follow the dose pack instruction oxycodone-acetaminophen [Percocet] 5-325 mg tablet 1 tab PO Q8H PRN (Reason: pain) 3 Days Qty: 9 0RF Discontinued unzclfiwjo-qbdqxdcnaorcy-kunc [Fioricet] 50-300-40 mg capsule 1 cap PO Q4H PRN (Reason: headache) No Action metoprolol succinate 100 mg tablet extended release 24 hr 100 mg PO .qhs albuterol sulfate 90 mcg/actuation HFA aerosol inhaler 1 puff INHALATION Q6H PRN (Reason: SOB) torsemide 20 mg tablet 20 mg PO BIDWM lorazepam 0.5 mg tablet 0.5 mg PO DAILY PRN (Reason: anxiety) ropinirole 0.25 mg tablet 0.25 mg PO QPM Rx Instructions: takes after dinner about 1800 ropinirole 0.25 mg tablet 0.5 mg PO .qhs potassium chloride 20 mEq tablet,ER particles/crystals 20 meq PO BID Qty: 0 0RF topiramate [Topamax] 25 mg tablet 25 mg PO BID Qty: 60 0RF atorvastatin 80 mg tablet 80 mg PO .QHS trazodone 50 mg tablet 50 mg PO QPM isosorbide mononitrate 30 mg tablet extended release 24 hr 30 mg PO DAILY omeprazole 40 mg capsule,delayed release(DR/EC) 40 mg PO DAILY levothyroxine 75 mcg tablet 75 mcg PO DAILY warfarin 5 mg tablet 5 mg PO DAILY Patient Comments: 5mg mwf, 7.5 mg tuthsasu nitroglycerin 0.4 mg tablet, sublingual 0.4 mg sublingual Q5M PRN (Reason: chest pain) amiodarone [Pacerone] 200 mg Tablet 200 mg PO QD Qty: 30 0RF olanzapine 2.5 mg tablet 5 mg PO .QHS hydroxyzine HCl 10 mg tablet 10 mg PO TID PRN (Reason: anxiety) sertraline 50 mg tablet 50 mg PO DAILY methocarbamol 750 mg tablet 750 mg PO TID PRN (Reason: pain) Qty: 20 0RF Print Language: Romansh Instructions: Leukocytosis (ED), Back Pain (ED) Referrals: ALISSA STRICKLAND [Primary Care Provider] - 1 week
== END 2024-09-30 11:07 | disposition home or self-care (01) ==
PROVIDERS: Emergency Provider Emergency Medicine; PCP Family Medicine
DX: R10.9 Unspecified abdominal pain (principal); M54.50 Low back pain, unspecified; D72.829 Elevated white blood cell count, unspecified; I50.9 Heart failure, unspecified; Z90.49 Acquired absence of other specified parts of digestive tract; Z90.710 Acquired absence of both cervix and uterus; Z95.2 Presence of prosthetic heart valve; Z87.891 Personal history of nicotine dependence
CPT/HCPCS: 36415; 74176; 80053; 81001; 83690; 85007; 85027; 96374; 99284; J2270